=== PATIENT | male | born 1965 | race Hispanic/Latino ===

== ENCOUNTER 2020-08-26 12:03 | Inpatient (IN) | payer OTHER, SELFPAY ==
--- NOTE | 2020-08-26 12:26 | Event Note ---
ED Screening Note Date of service: 08/26/20 Time: 12:21 ED Screening Note: 55 y/o male male presents to the emergency room for worsening cough and shortness of breath. Patient reports a past medical history of hypertension has been off his medications for approximately 6 months. Patient states with minimal exertion he gets short of breath. He he is currently on no oxygen at home. This initial assessment/diagnostic orders/clinical plan/treatment(s) is/are subject to change based on patients health status, clinical progression and re- assessment by fellow clinical providers in the ED. Further treatment and workup at subsequent clinical providers discretion. Patient/guardian urged not to elope from the ED as their condition may be serious if not clinically assessed and managed. Initial orders include: CBC CMP chest x-ray EKG oxygen.
--- NOTE | 2020-08-26 12:56 | XRay Report ---
XR chest routine 2V INDICATION / CLINICAL INFORMATION: SOB. COMPARISON: None available. FINDINGS: SUPPORT DEVICES: None. HEART /PULMONARY VASCULATURE: No significant abnormality. LUNGS / PLEURA: Patchy right hilar and medial right basilar airspace opacities. Mild opacities are al so present in the left lung base. No sizable pleural effusion or pneumothorax. ADDITIONAL FINDINGS: No significant additional findings. IMPRESSION: Patchy bilateral pulmonary opacities, greatest within the right perihilar and medial basilar regions. Findings are suspicious for pneumonia. Signer Name: Jose Crum MD Signed: 08/26/2020 12:51 PM Workstation Name: [id number]
[2020-08-26 13:21] LABS: Basophils # (Auto) 0.1 K/mm3 (0.0-0.1); Basophils % (Auto) 0.8 % (0.0-1.8); Eosinophils % (Auto) 0.5 % (0.0-4.3); Hematocrit 36.2 % (35.5-45.6); Hemoglobin 12.9 gm/dl (11.8-15.2); Lymphocytes # (Auto) 1.7 K/mm3 (1.2-5.4); Lymphocytes % (Auto) 16.9 % (13.4-35.0); Mean Corpuscular HGB Conc 36 % (32-34); Mean Corpuscular Volume 92 fl (84-94); Monocytes # (Auto) 0.9 K/mm3 (0.0-0.8); Monocytes % (Auto) 8.6 % (0.0-7.3); Platelet Count 298 K/mm3 (140-440); Red Blood Count 3.92 M/mm3 (3.65-5.03); Red Cell Distribution Width 14.1 % (13.2-15.2)
[2020-08-26 13:39] LABS: Alanine Aminotransferase 44 units/L (7-56); Albumin 3.3 g/dL (3.9-5); BUN/Creatinine Ratio 27; Blood Urea Nitrogen 30 mg/dL (9-20); Calcium 8.4 mg/dL (8.4-10.2); Hemolysis Index 5
[2020-08-26] MEDS ORDERED: AZITHROMYCIN/NS 500 MG/250 ML 500 MG/250 ML BAG IV ONE (17:55)
[2020-08-26] MEDS ORDERED: SODIUM CHLORIDE 0.9% 500 ML 500 ML IV ONE (17:55)
[2020-08-26] MEDS ORDERED: cefTRIAXone/NS 2 GM/100 ML 2 GM/100 ML BAG IV ONE (17:55)
[2020-08-26] MEDS ORDERED: dexAMETHasone 20 MG/5 ML VIAL IV ONE (17:58)
[2020-08-26] MEDS ORDERED: ACETAMINOPHEN 325 MG TAB PO PRN (18:30)
[2020-08-26] MEDS ORDERED: ONDANSETRON 4 MG/2 ML INJ IV PRN (18:30)
[2020-08-26] MEDS ORDERED: ALBUTEROL 2.5 MG/3 ML NEBU IH PRN (18:30)
--- NOTE | 2020-08-26 18:33 | History and Physical Report ---
History of Present Illness Chief complaint: I cannot breathe History of present illness: 55 YO Male with Obesity, HTN, Medication Noncompliance presents to ED for evaluation. Patient reports "I cannot breathe. Patient states that he has experienced shortness of breath over the past 3 days with progressively worsenin g symptoms over the same timeframe. Patient acknowledges malaise, fatigue, decreased exercise tolerance, as well as dry cough. Patient transported to [facility] via private vehicle for further care and evaluation of the aforementioned symptoms. The patient was seen and evaluated in the emergency department. All lab and imaging studies reviewed. Patient found to have a pulse oximetry of 88% on room air with exertion. Patient is unable to ambulate more than 10 feet without stopping due to shortness of breath. Patient is using accessory muscles to breathe. Patient symptoms consistent with acute hypoxemic respiratory failure. Patient underwent chest x-ray and was found to have bilateral pneumo zoe. Patient admitted to medical floor and initiated on pneumonia protocol as well as coronavirus protocol. Patient denies fever, chills, chest pain, palpitation, skin rash, recent ill contacts, or known exposure to COVID-19. No prior admission for review. No medication listed at time of admission for reconciliation. Past History Past Medical History: hypertension, other (See HPI) Past Surgical History: No surgical history, Other (Reviewed) Social history: single. denies: smoking, alcohol abuse, prescription drug abuse Family history: hypertension Medications and Allergies Allergies Allergy/AdvReac Type Severity Reaction Status Date / Time No Known Allergies Allergy Unverified 09/27/14 06:19 Active Meds: Active Medications Acetaminophen (Acetaminophen 325 Mg Tab) 650 mg PO Q4H PRN PRN Reason: Pain MILD(1-3)/Fever >100.5/MARIA Albuterol (Albuterol 2.5 Mg/3 Ml Nebu) 2.5 mg IH Q4HRT PRN PRN Reason: Shortness Of Breath Famotidine (Famotidine 20 Mg Tab) 20 mg PO BID RISHI Azithromycin (Zithromax/Ns) 500 mg in 250 mls @ 250 mls/hr IV ONCE ONE; Protocol Stop: 08/26/20 18:54 Ceftriaxone Sodium (Rocephin/Ns 2 Gm/100 Ml) 2 gm in 100 mls @ 200 mls/hr IV Q24H RISHI; Protocol Azithromycin (Zithromax/Ns) 500 mg in 250 mls @ 250 mls/hr IV Q24H RISHI; Protocol Ondansetron HCl (Ondansetron 4 Mg/2 Ml Inj) 4 mg IV Q8H PRN PRN Reason: Nausea And Vomiting Sodium Chloride (Sodium Chloride 0.9% 10 Ml Flush Syringe) 10 ml IV BID RISHI Sodium Chloride (Sodium Chloride 0.9% 10 Ml Flush Syringe) 10 ml IV PRN PRN PRN Reason: LINE FLUSH Review of Systems Constitutional: fatigue, weakness, malaise, no fever, no chills, no sweats Ears, nose, mouth and throat: no ear pain, no ear discharge, no tinnitis, no decreased hearing, no nasal congestion, no nasal discharge Cardiovascular: no chest pain, no orthopnea, no rapid/irregular heart beat, no edema, no syncope Respiratory: cough, shortness of breath, no wheezing, no pleurisy, no pain on inspiration Gastrointestinal: no abdominal pain, no nausea, no vomiting, no diarrhea, no constipation Genitourinary Male: no hematuria, no flank pain, no discharge, no urinary frequency Rectal: no pain, no incontinence, no bleeding Musculoskeletal: no neck stiffness, no neck pain, no shooting arm pain, no arm numbness/tingling, no shooting leg pain Integumentary: no rash, no pruritis, no redness, no sores Neurological: no head injury, no transient paralysis, no paralysis, no tremors, no ataxia Psychiatric: no anxiety, no change in sleep habits, no insomnia, no hypersomnia, no change in appetite, no change in libido, no suicidal ideation Endocrine: no cold intolerance, no polyphagia, no excessive thirst, no polydipsia Hematologic/Lymphatic: no easy bruising, no easy bleeding Allergic/Immunologic: no urticaria, no allergic rhinitis Exam - Constitutional Vitals: Temp Pulse Resp BP Pulse Ox 98.6 F 86 26 H 199/121 94 08/26/20 12:17 08/26/20 12:17 08/26/20 12:17 08/26/20 12:17 08/26/20 12:17 General appearance: Present: mild distress, obese - EENT Eyes: Present: PERRL ENT: hearing intact, clear oral mucosa - Neck Neck: Present: supple, normal ROM - Respiratory Respiratory effort: labored, accessory muscle use, stridor Respiratory: bilateral: diminished, rhonchi - Cardiovascular Heart Sounds: Present: S1 & S2. Absent: rub, click - Extremities Extremities: pulses symmetrical, No edema Peripheral Pulses: within normal limits - Abdominal General gastrointestinal: Present: soft, non-tender, non-distended, normal bowel sounds Male genitourinary: Present: normal - Integumentary Integumentary: Present: clear, warm, dry - Musculoskeletal Musculoskeletal: gait normal, strength equal bilaterally - Psychiatric Psychiatric: appropriate mood/affect, intact judgment & insight - Neurologic Neurologic: CNII-XII intact, moves all extremities Results - Labs CBC & Chem 7: 08/26/20 13:02 08/26/20 13:02 Labs: Abnormal lab results 08/26/20 08/26/20 Range/Units 13:02 13:02 MCH 33 H (28-32) pg MCHC 36 H (32-34) % [place] % (Auto) 8.6 H (0.0-7.3) % [place] # (Auto) 0.9 H (0.0-0.8) K/mm3 Seg Neutrophils % 73.2 H (40.0-70.0) % BUN 30 H (9-20) mg/dL Albumin 3.3 L (3.9-5) g/dL Assessment and Plan - Patient Problems (1) Acute hypoxemic respiratory failure Current Visit: Yes Status: Acute Plan to address problem: Chest x-ray, supplemental oxygen, pulse oximetry, nebulizer therapy, pulmonary toilet. (2) Obesity hypoventilation syndrome Current Visit: Yes Status: Acute Plan to address problem: Balanced diet, increase physical activity at discharge, outpatient pulmonary follow-up for sleep study. (3) Bilateral pneumonia Current Visit: Yes Status: Acute Plan to address problem: Pneumonia protocol: Chest x-ray, CBC, CMP, supplemental oxygen, nebulizer therapy, IV antibiotic therapy, blood culture. (4) Suspected COVID-19 virus infection Current Visit: Yes Status: Acute Plan to address problem: Coronavirus protocol: Contact precautions, isolation precautions, supplemental oxygen, pulse oximetry, nebulizer therapy, IV antibiotic therapy, IV steroid therapy, vitamin C therapy, vitamin D therapy, zinc therapy, IV steroid therapy (5) Hypertensive urgency Current Visit: Yes Status: Acute Plan to address problem: Monitor blood pressure every shift, continue medical management. (6) DVT prophylaxis Current Visit: Yes Status: Acute Plan to address problem: SCD to bilateral lower extremities while in bed, continue therapeutic anticoagulation
--- NOTE | 2020-08-26 18:40 | Emergency Department Report ---
ED Shortness of Breath HPI - General Chief Complaint: Dyspnea/Respdistress Stated Complaint: COUGH Time Seen by Provider: 08/26/20 17:43 Source: patient Mode of arrival: Ambulatory Limitations: No Limitations - History of Present Illness Initial Comments: Patient is a 55-year-old male past medical history of smoking and hypertension who is been noncompliant with his antihypertensive medications for the past 6 months is presenting with 2 weeks of shortness of breath. Patient states started out with a mild cough but is progressed to cough with shortness of breath especially with exertion. Patient states when going from his bedroom to his kitchen he is very short of breath and has to stop. Denies chest pain nausea vomiting diarrhea. Cough is nonproductive. Patient said body aches and some subjective fevers and chills. No objective fever was taken. Patient has not been tested for COVID-19 or has he been vaccinated. - Related Data Allergies Allergy/AdvReac Type Severity Reaction Status Date / Time No Known Allergies Allergy Unverified 09/27/14 06:19 ED Review of Systems ROS: Stated complaint: COUGH Other details as noted in HPI Comment: All other systems reviewed and negative ED Past Medical Hx - Past Medical History Previous Medical History?: No - Surgical History Past Surgical History?: Yes Additional Surgical History: plate in L ankle - Social History Smoking Status: Current Every Day Smoker Substance Use Type: None ED Physical Exam - General Limitations: No Limitations General appearance: alert, in no apparent distress - Head Head exam: Present: atraumatic, normocephalic - Eye Eye exam: Present: normal appearance - ENT ENT exam: Present: mucous membranes moist - Neck Neck exam: Present: normal inspection - Respiratory Respiratory exam: Present: respiratory distress, wheezes (Mild with exertion). Absent: normal lung sounds bilaterally, rales, rhonchi - Cardiovascular Cardiovascular Exam: Present: regular rate, normal rhythm, normal heart sounds. Absent: systolic murmur, diastolic murmur, rubs, gallop - GI/Abdominal GI/Abdominal exam: Present: soft, normal bowel sounds. Absent: distended, tenderness, guarding, rebound - Rectal Rectal exam: Present: deferred - Extremities Exam Extremities exam: Present: normal inspection - Back Exam Back exam: Present: normal inspection - Neurological Exam Neurological exam: Present: alert, oriented X3 - Psychiatric Psychiatric exam: Present: normal affect, normal mood - Skin Skin exam: Present: warm, dry, intact, normal color. Absent: rash ED Course Vital Signs 08/26/20 08/26/20 12:10 12:17 Temperature 98.6 F Pulse Rate 86 Respiratory 26 H Rate Blood Pressure 199/121 O2 Sat by Pulse 89 94 Oximetry ED Medical Decision Making - Lab Data Result diagrams: 08/26/20 13:02 08/26/20 13:02 Lab Results 08/26/20 08/26/20 Range/Units 13:02 13:02 WBC 10.2 (4.5-11.0) K/mm3 RBC 3.92 (3.65-5.03) M/mm3 Hgb 12.9 (11.8-15.2) gm/dl Hct 36.2 (35.5-45.6) % MCV 92 (84-94) fl MCH 33 H (28-32) pg MCHC 36 H (32-34) % RDW 14.1 (13.2-15.2) % Plt Count 298 (140-440) K/mm3 Lymph % (Auto) 16.9 (13.4-35.0) % [place] % (Auto) 8.6 H (0.0-7.3) % Eos % (Auto) 0.5 (0.0-4.3) % Baso % (Auto) 0.8 (0.0-1.8) % Lymph # (Auto) 1.7 (1.2-5.4) K/mm3 [place] # (Auto) 0.9 H (0.0-0.8) K/mm3 Eos # (Auto) 0.0 (0.0-0.4) K/mm3 Baso # (Auto) 0.1 (0.0-0.1) K/mm3 Seg Neutrophils % 73.2 H (40.0-70.0) % Seg Neutrophils # 7.5 (1.8-7.7) K/mm3 Sodium 140 (137-145) mmol/L Potassium 4.0 (3.6-5.0) mmol/L Chloride 106.5 (98-107) mmol/L Carbon Dioxide 26 (22-30) mmol/L Anion Gap 12 mmol/L BUN 30 H (9-20) mg/dL Creatinine 1.1 (0.8-1.3) mg/dL Estimated GFR > 60 ml/min BUN/Creatinine Ratio 27 % Glucose 91 (75-100) mg/dL Calcium 8.4 (8.4-10.2) mg/dL Total Bilirubin 0.60 (0.1-1.2) mg/dL AST 38 (5-40) units/L ALT 44 (7-56) units/L Alkaline Phosphatase 114 (35-129) units/L Total Protein 6.9 (6.3-8.2) g/dL Albumin 3.3 L (3.9-5) g/dL Albumin/Globulin Ratio 0.9 % - Radiology Data [id number] : 1965 Acct:[id number] Age/Sex: 55 / M ADM Date: 08/26/20 Loc: ED Attending Dr: Ordering Physician: RAFAEL IRWIN MD Date of Service: 08/26/20 Procedure(s): XR chest routine 2V Accession Number(s): [id number] cc: ED MD DC Fluoro Time In Minutes: XR chest routine 2V INDICATION / CLINICAL INFORMATION: SOB. COMPARISON: None available. FINDINGS: SUPPORT DEVICES: None. HEART /PULMONARY VASCULATURE: No significant abnormality. LUNGS / PLEURA: Patchy right hilar and medial right basilar airspace opacities. Mild opacities are also present in the left lung base. No sizable pleural effusion or pneumothorax. ADDITIONAL FINDINGS: No significant additional findings. IMPRESSION: Patchy bilateral pulmonary opacities, greatest within the right perihilar and medial basilar regions. Findings are suspicious for pneumonia. Signer Name: Raulito Diallo MD Signed: 08/26/2020 12:51 PM Workstation Name: [id number] Transcribed By: DECLAN Dictated By: RAULITO DIALLO MD Electronically Authenticated By: RAULITO DIALLO MD Signed Date/Time: 08/26/20 1251 - Medical Decision Making On arrival patient was hypoxic after entering the building walking from his car. He was placed on oxygen. Unfortunately there is a prolonged wait time for him to receive the room. On my arrival to the room the patient did have some shortness of breath with minor exertion in the room. Placed on 2 L of oxygen. Blood cultures sent patient given Rocephin and azithromycin empirically because of the bilateral patchy infiltrates. Covid 19 testing will be done in the morning. Inflammatory markers have been sent. Patient given labetalol for his elevated blood pressure. Given a dose of Decadron to cover for inflammatory response. Patient admitted to the hospitalist service. Critical Care Time: Yes (30) Critical care attestation.: If time is entered above; I have spent that time in minutes in the direct care of this critically ill patient, excluding procedure time. ED Disposition Clinical Impression: Bilateral pneumonia, Hypoxia, Suspected COVID-19 virus infection, Hypertensive urgency Disposition: 09 OP ADMIT IP TO THIS HOSP Is pt being admited?: Yes Does the pt Need Aspirin: No Condition: Stable Instructions: Bacterial Pneumonia (ED) Referrals: PRIMARY CARE, [Primary Care Provider] - 3-5 Days Time of Disposition: 18:41
[2020-08-26] MEDS ORDERED: cefTRIAXone/NS 2 GM/100 ML 2 GM/100 ML BAG IV SCH (19:00)
[2020-08-26] MEDS ORDERED: AZITHROMYCIN/NS 500 MG/250 ML 500 MG/250 ML BAG IV SCH (19:00)
[2020-08-26 19:09] LABS: C-Reactive Protein 1.5 mg/dL (0.00-1.30)
[2020-08-26] MEDS: hydrALAZINE 20 MG/1 ML INJ IV PRN (21:35)
[2020-08-26] MEDS ORDERED: HYDROmorphone 1 MG/1 ML INJ IV ONE (21:36)
[2020-08-26] MEDS: ASCORBIC ACID 500 MG TAB PO SCH (22:58)
[2020-08-26] MEDS: FAMOTIDINE 20 MG TAB PO SCH (22:58)
[2020-08-26] MEDS: methylPREDNISolone Sod Succinate 40 MG/1 ML INJ IV SCH (22:58)
[2020-08-26] MEDS: ZINC SULFATE 220 MG CAP PO SCH (22:58)
[2020-08-26] MEDS: HEPARIN 5,000 UNIT/1 ML VIAL SUB-Q SCH (22:59)
[2020-08-27] MEDS: methylPREDNISolone Sod Succinate 40 MG/1 ML INJ IV SCH ×3 (05:48→21:51)
[2020-08-27] MEDS: hydrALAZINE 20 MG/1 ML INJ IV PRN (06:12)
[2020-08-27 07:55] LABS: Hematocrit 41.7 % (35.5-45.6); Hemoglobin 14.3 gm/dl (11.8-15.2); Mean Corpuscular HGB Conc 34 % (32-34); Mean Corpuscular Volume 94 fl (84-94); Platelet Count 321 K/mm3 (140-440); Red Blood Count 4.42 M/mm3 (3.65-5.03); Red Cell Distribution Width 14.3 % (13.2-15.2)
[2020-08-27 08:10] LABS: Alanine Aminotransferase 46 units/L (7-56); Albumin 3.2 g/dL (3.9-5); BUN/Creatinine Ratio 26; Blood Urea Nitrogen 21 mg/dL (9-20); Calcium 8.1 mg/dL (8.4-10.2); Hemolysis Index 38
[2020-08-27 08:45] LABS: RBC Morphology Normal; Total Cells Counted 100
[2020-08-27 08:46] LABS: Platelet Estimate Consistent w Auto
--- NOTE | 2020-08-27 09:26 | Progress Note ---
Assessment and Plan Assessment and plan: #Acute pulse respiratory failure Secondary to pneumonia Continue oxygen supplementation COVID-19 test pending #COVID-19 pneumonia suspected COVID-19 test ordered Continue methylprednisolone Antibiotics Continue oxygen supplementation #Hypertensive urgency Continue blood pressure medications as ordered Monitor blood pressure closely #Obesity hypoventilation syndrome Pulmonology follow-up for sleep study #DVT prophylaxis-Heparin Full code Disposition-likely home when stable History Interval history: 55 YO Male with Obesity, HTN, Medication Noncompliance presents to ED for evaluation. Patient reports "I cannot breathe. Patient states that he has experienced shortness of breath over the past 3 days with progressively worsening symptoms over the same timeframe. Patient acknowledges malaise, fatigue, decreased exercise tolerance, as well as dry cough. Patient transported to [facility] via private vehicle for further care and evaluation of the aforementioned symptoms. The patient was seen and evaluated in the emergency department. All lab and imaging studies reviewed. Patient found to have a pulse oximetry of 88% on room air with exertion. Patient is unable to ambulate more than 10 feet without stopping due to shortness of breath. Patient is using accessory muscles to breathe. Patient symptoms consistent with acute hypoxemic respiratory failure. Patient underwent chest x-ray and was found to have bilateral pneumonia. Patient admitted to medical floor and initiated on pneumonia protocol as well as coronavirus protocol. Patient denies fever, chills, chest pain, palpitation, skin rash, recent ill contacts, or known exposure to COVID-19. No prior admission for review. No medication listed at time of admission for reconciliation. Hospital course 08/27. Patient is on methylprednisolone 40 every 8 and antibiotics for pneumonia . COVID-19 test pending. He notes occasional cough. Denies any fever. proBNP ordered. ID evaluation Hospitalist Physical - Physical exam Narrative exam: VITAL SIGNS: Reviewed. GENERAL: Awake HEAD: No signs of head trauma. EYES: Pupils are equal. Extraocular motions intact. MOUTH: Oropharynx is normal. NECK: No adenopathy, no JVD. CHEST: Chest with diminished breath sounds bilaterally. No wheezes, rales, or rhonchi. CARDIAC: normal S1 and S2, without murmurs, gallops, or rubs. ABDOMEN: Soft, non tender and non distended. No rebound or guarding, and no masses palpated. Bowel Sounds normal. MUSCULOSKELETAL: No edema NEUROLOGIC EXAM: Alert and oriented x3. No focal neurologic deficits SKIN: No obvious lesions - Constitutional Vitals: Temp Pulse Resp BP Pulse Ox 98.1 F 90 18 168/85 100 08/27/20 04:19 08/27/20 06:12 08/27/20 08:50 08/27/20 06:12 08/27/20 04:39 Results - Labs CBC & Chem 7: 08/28/20 05:24 08/28/20 05:24 Labs: Laboratory Last Values WBC 8.4 K/mm3 (4.5-11.0) 08/27/20 07:03 RBC 4.42 M/mm3 (3.65-5.03) 08/27/20 07:03 Hgb 14.3 gm/dl (11.8-15.2) 08/27/20 07:03 Hct 41.7 % (35.5-45.6) 08/27/20 07:03 MCV 94 fl (84-94) 08/27/20 07:03 MCH 32 pg (28-32) 08/27/20 07:03 MCHC 34 % (32-34) 08/27/20 07:03 RDW 14.3 % (13.2-15.2) 08/27/20 07:03 Plt Count 321 K/mm3 (140-440) 08/27/20 07:03 Lymph % (Auto) 16.9 % (13.4-35.0) 08/26/20 13:02 Branch % (Auto) 8.6 % (0.0-7.3) H 08/26/20 13:02 Eos % (Auto) 0.5 % (0.0-4.3) 08/26/20 13:02 Baso % (Auto) 0.8 % (0.0-1.8) 08/26/20 13:02 Lymph # (Auto) 1.7 K/mm3 (1.2-5.4) 08/26/20 13:02 Branch # (Auto) 0.9 K/mm3 (0.0-0.8) H 08/26/20 13:02 Eos # (Auto) 0.0 K/mm3 (0.0-0.4) 08/26/20 13:02 Baso # (Auto) 0.1 K/mm3 (0.0-0.1) 08/26/20 13:02 Add Manual Diff Complete 08/27/20 07:03 Total Counted 100 08/27/20 07:03 Seg Neutrophils % [employer] Equipment Wirer 08/27/20 07:03 Seg Neuts % (Manual) 98.0 % (40.0-70.0) H 08/27/20 07:03 Lymphocytes % (Manual) 2.0 % (13.4-35.0) L 08/27/20 07:03 Nucleated RBC % Not Reportable 08/27/20 07:03 Seg Neutrophils # 7.5 K/mm3 (1.8-7.7) 08/26/20 13:02 Seg Neutrophils # Man 8.2 K/mm3 (1.8-7.7) H 08/27/20 07:03 Band Neutrophils # 0.0 K/mm3 08/27/20 07:03 Lymphocytes # (Manual) 0.2 K/mm3 (1.2-5.4) L 08/27/20 07:03 Abs React Lymphs (Man) 0.0 K/mm3 08/27/20 07:03 Monocytes # (Manual) 0.0 K/mm3 (0.0-0.8) 08/27/20 07:03 Eosinophils # (Manual) 0.0 K/mm3 (0.0-0.4) 08/27/20 07:03 Basophils # (Manual) 0.0 K/mm3 (0.0-0.1) 08/27/20 07:03 Metamyelocytes # 0.0 K/mm3 08/27/20 07:03 Myelocytes # 0.0 K/mm3 08/27/20 07:03 Promyelocytes # 0.0 K/mm3 08/27/20 07:03 Blast Cells # 0.0 K/mm3 08/27/20 07:03 WBC Morphology Not Reportable 08/27/20 07:03 Hypersegmented Neuts Not Reportable 08/27/20 07:03 Hyposegmented Neuts Not Reportable 08/27/20 07:03 Hypogranular Neuts Not Reportable 08/27/20 07:03 Smudge Cells Not Reportable 08/27/20 07:03 Toxic Granulation Not Reportable 08/27/20 07:03 Toxic Vacuolation Not Reportable 08/27/20 07:03 Dohle Bodies Not Reportable 08/27/20 07:03 Pelger-Huet Anomaly Not Reportable 08/27/20 07:03 Jesse Rods Not Reportable 08/27/20 07:03 Platelet Estimate Consistent w auto 08/27/20 07:03 Clumped Platelets Not Reportable 08/27/20 07:03 Plt Clumps, EDTA Not Reportable 08/27/20 07:03 Large Platelets Not Reportable 08/27/20 07:03 Giant Platelets Not Reportable 08/27/20 07:03 Platelet Satelliting Not Reportable 08/27/20 07:03 Plt Morphology Comment Not Reportable 08/27/20 07:03 RBC Morphology Normal 08/27/20 07:03 Dimorphic RBCs Not Reportable 08/27/20 07:03 Polychromasia Not Reportable 08/27/20 07:03 Hypochromasia Not Reportable 08/27/20 07:03 Poikilocytosis Not Reportable 08/27/20 07:03 Anisocytosis Not Reportable 08/27/20 07:03 Microcytosis Not Reportable 08/27/20 07:03 Macrocytosis Not Reportable 08/27/20 07:03 Spherocytes Not Reportable 08/27/20 07:03 Pappenheimer Bodies Not Reportable 08/27/20 07:03 Sickle Cells Not Reportable 08/27/20 07:03 Target Cells Not Reportable 08/27/20 07:03 Tear Drop Cells Not Reportable 08/27/20 07:03 Ovalocytes Not Reportable 08/27/20 07:03 Helmet Cells Not Reportable 08/27/20 07:03 [place] Bodies Not Reportable 08/27/20 07:03 [place] Rings Not Reportable 08/27/20 07:03 [place] Cells Not Reportable 08/27/20 07:03 Bite Cells Not Reportable 08/27/20 07:03 Crenated Cell Not Reportable 08/27/20 07:03 Elliptocytes Not Reportable 08/27/20 07:03 Acanthocytes (Spur) Not Reportable 08/27/20 07:03 Rouleaux Not Reportable 08/27/20 07:03 Hemoglobin C Crystals Not Reportable 08/27/20 07:03 Schistocytes Not Reportable 08/27/20 07:03 Malaria parasites Not Reportable 08/27/20 07:03 Tomi Bodies Not Reportable 08/27/20 07:03 Hem Pathologist Commnt No 08/27/20 07:03 D-Dimer 493.28 ng/mlDDU (0-234) H 08/26/20 18:21 Sodium 137 mmol/L (137-145) 08/27/20 07:03 Potassium 4.3 mmol/L (3.6-5.0) 08/27/20 07:03 Chloride 103.3 mmol/L (98-107) 08/27/20 07:03 Carbon Dioxide 23 mmol/L (22-30) 08/27/20 07:03 Anion Gap 15 mmol/L 08/27/20 07:03 BUN 21 mg/dL (9-20) H 08/27/20 07:03 Creatinine 0.8 mg/dL (0.8-1.3) 08/27/20 07:03 Estimated GFR > 60 ml/min 08/27/20 07:03 BUN/Creatinine Ratio 26 % 08/27/20 07:03 Glucose 148 mg/dL (75-100) H 08/27/20 07:03 Lactic Acid 1.30 mmol/L (0.7-2.0) 08/27/20 00:44 Calcium 8.1 mg/dL (8.4-10.2) L 08/27/20 07:03 Ferritin 112.6 ng/mL (30.0-300.0) 08/26/20 18: Total Bilirubin 0.60 mg/dL (0.1-1.2) 08/27/20 07:03 AST 35 units/L (5-40) 08/27/20 07:03 ALT 46 units/L (7-56) 08/27/20 07:03 Alkaline Phosphatase 108 units/L (35-129) 08/27/20 07:03 Lactate Dehydrogenase 282 units/L (91-180) H 08/26/20 18:21 C-Reactive Protein 1.50 mg/dL (0.00-1.30) H 08/26/20 18: Total Protein 7.3 g/dL (6.3-8.2) 08/27/20 07:03 Albumin 3.2 g/dL (3.9-5) L 08/27/20 07:03 Albumin/Globulin Ratio 0.8 % 08/27/20 07:03 Microbiology: Microbiology 08/26/20 18:21 Peripheral/Venous Blood Culture - Preliminary Culture in Progress 08/26/20 18:30 Peripheral/Venous Blood Culture - Preliminary Culture in Progress Merino/IV: Voiding Method Urinal Active Medications - Current Medications Current Medications: Generic Name Dose Route Start Last Admin Trade Name Freq PRN Reason Stop Dose Admin Acetaminophen 650 mg 08/26/20 18:30 Acetaminophen 325 Mg Tab PO Q4H PRN Pain MILD(1-3)/Fever >100.5/MARIA Albuterol 2.5 mg 08/26/20 18:30 Albuterol 2.5 Mg/3 Ml Nebu IH Q4HRT PRN Shortness Of Breath Amlodipine Besylate 10 mg 08/27/20 10:00 Amlodipine 10 Mg Tab PO QDAY RISHI Ascorbic Acid 500 mg 08/26/20 22:00 08/26/20 22:58 Ascorbic Acid 500 Mg Tab PO 500 mg BID RISHI Administration Cholecalciferol 1,000 unit 08/27/20 10:00 Cholecalciferol (Vit D3) 1000 Unit (25 Mcg) Tab PO QDAY RISHI Famotidine 20 mg 08/26/20 22:00 08/26/20 22:58 Famotidine 20 Mg Tab PO 20 mg BID RISHI Administration Heparin Sodium (Porcine) 5,000 unit 08/26/20 22:00 08/26/20 22:59 Heparin 5,000 Unit/1 Ml Vial SUB-Q 5,000 unit Q12HR RISHI Administration Hydralazine HCl 10 mg 08/26/20 19:11 08/27/20 06:12 Hydralazine 20 Mg/1 Ml Inj IV 10 mg Q8HR PRN Administration Hypertension Ceftriaxone Sodium 2 gm in 100 mls @ 200 mls/hr 08/27/20 10:00 Rocephin/Ns 2 Gm/100 Ml IV Q24HR [facility] Protocol Azithromycin 500 mg in 250 mls @ 250 mls/hr 08/27/20 10:00 Zithromax/Ns IV 08/30/20 10:59 Q24HR [facility] Protocol Methylprednisolone Sodium Succinate 40 mg 08/26/20 22:00 08/27/20 05:48 Methylprednisolone Sod Succinate 40 Mg/1 Ml Inj IV 40 mg Q8H RISHI Administration Ondansetron HCl 4 mg 08/26/20 18:30 Ondansetron 4 Mg/2 Ml Inj IV Q8H PRN Nausea And Vomiting Sodium Chloride 10 ml 08/26/20 22:00 08/26/20 22:58 Sodium Chloride 0.9% 10 Ml Flush Syringe IV 10 ml BID RISHI Administration Sodium Chloride 10 ml 08/26/20 18:30 Sodium Chloride 0.9% 10 Ml Flush Syringe IV PRN PRN LINE FLUSH Zinc Sulfate 220 mg 08/26/20 22:00 08/26/20 22:58 Zinc Sulfate 220 Mg Cap PO 220 mg BID RISHI Administration
[2020-08-27] MEDS ORDERED: FUROSEMIDE 40 MG/4 ML INJ IV NR ×2 (09:40→18:49)
[2020-08-27] MEDS ORDERED: dexAMETHasone 4 MG/ML VIAL IV SCH (10:00)
[2020-08-27] MEDS ORDERED: AZITHROMYCIN/NS 500 MG/250 ML 500 MG/250 ML BAG IV SCH (10:00)
[2020-08-27] MEDS: HEPARIN 5,000 UNIT/1 ML VIAL SUB-Q SCH ×2 (10:32→21:51)
[2020-08-27] MEDS: ASCORBIC ACID 500 MG TAB PO SCH ×2 (10:32→21:51)
[2020-08-27] MEDS: cefTRIAXone/NS 2 GM/100 ML 2 GM/100 ML BAG IV SCH (10:32)
[2020-08-27] MEDS: FAMOTIDINE 20 MG TAB PO SCH ×2 (10:32→21:51)
[2020-08-27] MEDS: LOSARTAN 50 MG TAB PO SCH (10:32)
[2020-08-27] MEDS: ZINC SULFATE 220 MG CAP PO SCH ×2 (10:32→21:51)
[2020-08-27] MEDS: CHOLECALCIFEROL (VIT D3) 1000 UNIT (25 mcg) TAB PO SCH (10:32)
[2020-08-27] MEDS: amLODIPine 10 MG TAB PO SCH (10:33)
[2020-08-27] MEDS ORDERED: FLU VACC QUAD 2020-2021 (6 months +)/PF 60 0.5 ML SYRINGE IM ONE (12:00)
[2020-08-28] MEDS: methylPREDNISolone Sod Succinate 40 MG/1 ML INJ IV SCH ×3 (05:42→21:36)
[2020-08-28 06:23] LABS: Hematocrit 43.4 % (35.5-45.6); Hemoglobin 14.7 gm/dl (11.8-15.2); Mean Corpuscular HGB Conc 34 % (32-34); Mean Corpuscular Volume 95 fl (84-94); Platelet Count 374 K/mm3 (140-440); Red Blood Count 4.58 M/mm3 (3.65-5.03); Red Cell Distribution Width 14.7 % (13.2-15.2)
[2020-08-28 06:45] LABS: Alanine Aminotransferase 37 units/L (7-56); Albumin 3.6 g/dL (3.9-5); BUN/Creatinine Ratio 25; Blood Urea Nitrogen 25 mg/dL (9-20); Calcium 8.6 mg/dL (8.4-10.2); Hemolysis Index 7
[2020-08-28 08:12] LABS: Platelet Estimate Consistent w Auto; RBC Morphology Normal; Total Cells Counted 100
[2020-08-28] MEDS: FUROSEMIDE 40 MG/4 ML INJ IV SCH ×2 (10:05→18:27)
[2020-08-28] MEDS: HEPARIN 5,000 UNIT/1 ML VIAL SUB-Q SCH ×2 (10:05→21:35)
[2020-08-28] MEDS: cefTRIAXone/NS 2 GM/100 ML 2 GM/100 ML BAG IV SCH (10:05)
[2020-08-28] MEDS: FAMOTIDINE 20 MG TAB PO SCH ×2 (10:06→21:36)
[2020-08-28] MEDS: LOSARTAN 50 MG TAB PO SCH (10:06)
[2020-08-28] MEDS: AZITHROMYCIN 250 MG TAB PO SCH (10:06)
[2020-08-28] MEDS: ASCORBIC ACID 500 MG TAB PO SCH ×2 (10:06→21:36)
[2020-08-28] MEDS: ZINC SULFATE 220 MG CAP PO SCH ×2 (10:06→21:36)
[2020-08-28] MEDS: CHOLECALCIFEROL (VIT D3) 1000 UNIT (25 mcg) TAB PO SCH (10:07)
[2020-08-28] MEDS: amLODIPine 10 MG TAB PO SCH (10:07)
--- NOTE | 2020-08-28 10:20 | Progress Note ---
Assessment and Plan Assessment and plan: #Acute pulse respiratory failure Secondary to pneumonia Continue oxygen supplementation COVID-19 test negative #COVID-19 ruled out #Hypertensive urgency Switch amlodipine to nifedipine and adjust dose Continue losartan #Elevated proBNP Likely as a result of possible CHF Started on Lasix 40 mg twice daily Repeat chest x-ray tomorrow a.m. #Obesity hypoventilation syndrome Pulmonology follow-up for sleep study #DVT prophylaxis-Heparin Full code Disposition-likely home when stable History Interval history: 55 YO Male with Obesity, HTN, Medication Noncompliance presents to ED for evaluation. Patient reports "I cannot breathe. Patient states that he has experienced shortness of breath over the past 3 days with progressively worsening symptoms over the same timeframe. Patient acknowledges malaise, fatigue, decreased exercise tolerance, as well as dry cough. Patient transported to [facility] via private vehicle for further care and evaluation of the aforementioned symptoms. The patient was seen and evaluated in the emergency department. All lab and imaging studies reviewed. Patient found to have a pulse oximetry of 88% on room air with exertion. Patient is unable to ambulate more than 10 feet without stopping due to shortness of breath. Patient is using accessory muscles to breathe. Patient symptoms consistent with acute hypoxemic respiratory failure. Patient underwent chest x-ray and was found to have bilateral pneumonia. Patient admitted to medical floor and initiated on pneumonia protocol as well as coronavirus protocol. Patient denies fever, chills, chest pain, palpitation, skin rash, recent ill contacts, or known exposure to COVID-19. No prior admission for review. No medication listed at time of admission for reconciliation. Hospital course 08/27. Patient is on methylprednisolone 40 every 8 and antibiotics for pneu monia. COVID-19 test pending. He notes occasional cough. Denies any fever. proBNP ordered. ID evaluation 08/28. COVID-19 test is negative. Taper steroids. His proBNP is elevated to more than 6000. Patient started on Lasix 40 mg twice daily. Echocardiogram performed but results still pending. Telemetry-sinus rhythm in the 80s. Hospitalist Physical - Physical exam Narrative exam: VITAL SIGNS: Reviewed. GENERAL: Awake HEAD: No signs of head trauma. EYES: Pupils are equal. Extraocular motions intact. MOUTH: Oropharynx is normal. NECK: No adenopathy, no JVD. CHEST: Chest with diminished breath sounds bilaterally. No wheezes, rales, or rhonchi. CARDIAC: normal S1 and S2, without murmurs, gallops, or rubs. ABDOMEN: Soft, non tender and non distended. No rebound or guarding, and no masses palpated. Bowel Sounds normal. MUSCULOSKELETAL: No edema NEUROLOGIC EXAM: Alert and oriented x3. No focal neurologic deficits SKIN: No obvious lesions - Constitutional Vitals: Temp Pulse Resp BP Pulse Ox 98.8 F 92 H 20 176/104 96 08/28/20 04:37 08/28/20 10:06 08/28/20 04:37 08/28/20 10:06 08/28/20 08:42 Results - Labs CBC & Chem 7: 08/28/20 05:24 08/28/20 05:24 Labs: Laboratory Last Values WBC 19.9 K/mm3 (4.5-11.0) H 08/28/20 05:24 RBC 4.58 M/mm3 (3.65-5.03) 08/28/20 05:24 Hgb 14.7 gm/dl (11.8-15.2) 08/28/20 05:24 Hct 43.4 % (35.5-45.6) 08/28/20 05:24 MCV 95 fl (84-94) H 08/28/20 05:24 MCH 32 pg (28-32) 08/28/20 05:24 MCHC 34 % (32-34) 08/28/20 05:24 RDW 14.7 % (13.2-15.2) 08/28/20 05:24 Plt Count 374 K/mm3 (140-440) 08/28/20 05:24 Lymph % (Auto) 16.9 % (13.4-35.0) 08/26/20 13:02 [place] % (Auto) 8.6 % (0.0-7.3) H 08/26/20 13:02 Eos % (Auto) 0.5 % (0.0-4.3) 08/26/20 13:02 Baso % (Auto) 0.8 % (0.0-1.8) 08/26/20 13:02 Lymph # (Auto) 1.7 K/mm3 (1.2-5.4) 08/26/20 13:02 [place] # (Auto) 0.9 K/mm3 (0.0-0.8) H 08/26/20 13:02 Eos # (Auto) 0.0 K/mm3 (0.0-0.4) 08/26/20 13:02 Baso # (Auto) 0.1 K/mm3 (0.0-0.1) 08/26/20 13:02 Add Manual Diff Complete 08/28/20 05:24 Total Counted 100 08/28/20 05:24 Seg Neutrophils % [employer] Professor 08/28/20 05:24 Seg Neuts % (Manual) 89.0 % (40.0-70.0) H 08/28/20 05:24 Lymphocytes % (Manual) 3.0 % (13.4-35.0) L 08/28/20 05:24 Monocytes % (Manual) 7.0 % (0.0-7.3) 08/28/20 05:24 Metamyelocytes % 1.0 % 08/28/20 05:24 Nucleated RBC % Not Reportable 08/28/20 05:24 Seg Neutrophils # 7.5 K/mm3 (1.8-7.7) 08/26/20 13:02 Seg Neutrophils # Man 17.7 K/mm3 (1.8-7.7) H 08/28/20 05:24 Band Neutrophils # 0.0 K/mm3 08/28/20 05:24 Lymphocytes # (Manual) 0.6 K/mm3 (1.2-5.4) L 08/28/20 05:24 Abs React Lymphs (Man) 0.0 K/mm3 08/28/20 05:24 Monocytes # (Manual) 1.4 K/mm3 (0.0-0.8) H 08/28/20 05:24 Eosinophils # (Manual) 0.0 K/mm3 (0.0-0.4) 08/28/20 05:24 Basophils # (Manual) 0.0 K/mm3 (0.0-0.1) 08/28/20 05:24 Metamyelocytes # 0.2 K/mm3 08/28/20 05:24 Myelocytes # 0.0 K/mm3 08/28/20 05:24 Promyelocytes # 0.0 K/mm3 08/28/20 05:24 Blast Cells # 0.0 K/mm3 08/28/20 05:24 WBC Morphology Not Reportable 08/28/20 05:24 Hypersegmented Neuts Not Reportable 08/28/20 05:24 Hyposegmented Neuts Not Reportable 08/28/20 05:24 Hypogranular Neuts Not Reportable 08/28/20 05:24 Smudge Cells Not Reportable 08/28/20 05:24 Toxic Granulation Not Reportable 08/28/20 05:24 Toxic Vacuolation Not Reportable 08/28/20 05:24 Dohle Bodies Not Reportable 08/28/20 05:24 Pelger-Huet Anomaly Not Reportable 08/28/20 05:24 Jesse Rods Not Reportable 08/28/20 05:24 Platelet Estimate Consistent w auto 08/28/20 05:24 Clumped Platelets Not Reportable 08/28/20 05:24 Plt Clumps, EDTA Not Reportable 08/28/20 05:24 Large Platelets Not Reportable 08/28/20 05:24 Giant Platelets Not Reportable 08/28/20 05:24 Platelet Satelliting Not Reportable 08/28/20 05:24 Plt Morphology Comment Not Reportable 08/28/20 05:24 RBC Morphology Normal 08/28/20 05:24 Dimorphic RBCs Not Reportable 08/28/20 05:24 Polychromasia Not Reportable 08/28/20 05:24 Hypochromasia Not Reportable 08/28/20 05:24 Poikilocytosis Not Reportable 08/28/20 05:24 Anisocytosis Not Reportable 08/28/20 05:24 Microcytosis Not Reportable 08/28/20 05:24 Macrocytosis Not Reportable 08/28/20 05:24 Spherocytes Not Reportable 08/28/20 05:24 Pappenheimer Bodies Not Reportable 08/28/20 05:24 Sickle Cells Not Reportable 08/28/20 05:24 Target Cells Not Reportable 08/28/20 05:24 Tear Drop Cells Not Reportable 08/28/20 05:24 Ovalocytes Not Reportable 08/28/20 05:24 Helmet Cells Not Reportable 08/28/20 05:24 [place] Bodies Not Reportable 08/28/20 05:24 [place] Rings Not Reportable 08/28/20 05:24 Alec Cells Not Reportable 08/28/20 05:24 Bite Cells Not Reportable 08/28/20 05:24 Crenated Cell Not Reportable 08/28/20 05:24 Elliptocytes Not Reportable 08/28/20 05:24 Acanthocytes (Spur) Not Reportable 08/28/20 05:24 Rouleaux Not Reportable 08/28/20 05:24 Hemoglobin C Crystals Not Reportable 08/28/20 05:24 Schistocytes Not Reportable 08/28/20 05:24 Malaria parasites Not Reportable 08/28/20 05:24 Tomi Bodies Not Reportable 08/28/20 05:24 Hem Pathologist Commnt No 08/28/20 05:24 D-Dimer 493.28 ng/mlDDU (0-234) H 08/26/20 18:21 Sodium 142 mmol/L (137-145) 08/28/20 05:24 Potassium 4.2 mmol/L (3.6-5.0) 08/28/20 05:24 Chloride 105.3 mmol/L (98-107) 08/28/20 05:24 Carbon Dioxide 26 mmol/L (22-30) 08/28/20 05:24 Anion Gap 15 mmol/L 08/28/20 05:24 BUN 25 mg/dL (9-20) H 08/28/20 05:24 Creatinine 1.0 mg/dL (0.8-1.3) 08/28/20 05:24 Estimated GFR > 60 ml/min 08/28/20 05:24 BUN/Creatinine Ratio 25 % 08/28/20 05:24 Glucose 128 mg/dL (75-100) H 08/28/20 05:24 Lactic Acid 1.30 mmol/L (0.7-2.0) 08/27/20 00:44 Calcium 8.6 mg/dL (8.4-10.2) 08/28/20 05:24 Ferritin 112.6 ng/mL (30.0-300.0) 08/26/20 18:21 Total Bilirubin 0.50 mg/dL (0.1-1.2) 08/28/20 05:24 AST 20 units/L (5-40) 08/28/20 05:24 ALT 37 units/L (7-56) 08/28/20 05:24 Alkaline Phosphatase 111 units/L (35-129) 08/28/20 05:24 Lactate Dehydrogenase 282 units/L (91-180) H 08/26/20 18:21 C-Reactive Protein 1.50 mg/dL (0.00-1.30) H 08/26/20 18:21 NT-Pro-B Natriuret Pep 6395 pg/mL (0-900) H 08/28/20 05:24 Total Protein 7.5 g/dL (6.3-8.2) 08/28/20 05:24 Albumin 3.6 g/dL (3.9-5) L 08/28/20 05:24 Albumin/Globulin Ratio 0.9 % 08/28/20 05:24 Procalcitonin 1.37 ng/mL (<0.15) 08/26/20 18:21 Nasal Screen MRSA (PCR) Negative (Negative) 08/27/20 Unknown Coronavirus (PCR) Negative (Negative) 08/26/20 Unknown Microbiology: Microbiology 08/26/20 18:21 Peripheral/Venous Blood Culture - Preliminary NO GROWTH AFTER 24 HOURS 08/26/20 18:30 Peripheral/Venous Blood Culture - Preliminary NO GROWTH AFTER 24 HOURS Merino/IV: Voiding Method Toilet Active Medications - Current Medications Current Medications: Generic Name Dose Route Start Last Admin Trade Name Freq PRN Reason Stop Dose Admin Acetaminophen 650 mg 08/26/20 18:30 Acetaminophen 325 Mg Tab PO Q4H PRN Pain MILD(1-3)/Fever >100.5/MARIA Albuterol 2.5 mg 08/26/20 18:30 Albuterol 2.5 Mg/3 Ml Nebu IH Q4HRT PRN Shortness Of Breath Amlodipine Besylate 10 mg 08/27/20 10:00 08/28/20 10:07 Amlodipine 10 Mg Tab PO 10 mg QDAY RISHI Administration Ascorbic Acid 500 mg 08/26/20 22:00 08/28/20 10:06 Ascorbic Acid 500 Mg Tab PO 500 mg BID RISHI Administration Azithromycin 500 mg 08/28/20 10:00 08/28/20 10:06 Azithromycin 250 Mg Tab PO 08/30/20 12:00 500 mg QDAY RISHI Administration Cholecalciferol 1,000 unit 08/27/20 10:00 08/28/20 10:07 Cholecalciferol (Vit D3) 1000 Unit (25 Mcg) Tab PO 1,000 unit QDAY RISHI Administration Famotidine 20 mg 08/26/20 22:00 08/28/20 10:06 Famotidine 20 Mg Tab PO 20 mg BID RISHI Administration Furosemide 40 mg 08/28/20 09:00 08/28/20 10:05 Furosemide 40 Mg/4 Ml Inj IV 40 mg 0600,1800 RISHI Administration Heparin Sodium (Porcine) 5,000 unit 08/26/20 22:00 08/28/20 10:05 Heparin 5,000 Unit/1 Ml Vial SUB-Q 5,000 unit Q12HR RISHI Administration Hydralazine HCl 10 mg 08/26/20 19:11 08/27/20 06:12 Hydralazine 20 Mg/1 Ml Inj IV 10 mg Q8HR PRN Administration Hypertension Hydralazine HCl 50 mg 08/28/20 14:00 Hydralazine 25 Mg Tab PO Q8HR RISHI Ceftriaxone Sodium 2 gm in 100 mls @ 200 mls/hr 08/27/20 10:00 08/28/20 10:05 Rocephin/Ns 2 Gm/100 Ml IV 200 mls/hr Q24HR RISHI Administration Protocol Losartan Potassium 100 mg 08/28/20 10:17 Losartan 50 Mg Tab PO QDAY RISHI Methylprednisolone Sodium Succinate 40 mg 08/26/20 22:00 08/28/20 05:42 Methylprednisolone Sod Succinate 40 Mg/1 Ml Inj IV 40 mg Q8H RISHI Administration Ondansetron HCl 4 mg 08/26/20 18:30 Ondansetron 4 Mg/2 Ml Inj IV Q8H PRN Nausea And Vomiting Sodium Chloride 10 ml 08/26/20 22:00 08/28/20 10:07 Sodium Chloride 0.9% 10 Ml Flush Syringe IV 10 ml BID RISHI Administration Sodium Chloride 10 ml 08/26/20 18:30 Sodium Chloride 0.9% 10 Ml Flush Syringe IV PRN PRN LINE FLUSH Zinc Sulfate 220 mg 08/26/20 22:00 08/28/20 10:06 Zinc Sulfate 220 Mg Cap PO 220 mg BID RISHI Administration
[2020-08-28] MEDS ORDERED: LOSARTAN 50 MG TAB PO NR (10:30)
[2020-08-28] MEDS: hydrALAZINE 25 MG TAB PO SCH ×2 (13:16→21:35)
[2020-08-29] MEDS: hydrALAZINE 25 MG TAB PO SCH ×3 (05:32→23:01)
[2020-08-29] MEDS: FUROSEMIDE 40 MG/4 ML INJ IV SCH ×2 (05:32→17:52)
[2020-08-29] MEDS: methylPREDNISolone Sod Succinate 40 MG/1 ML INJ IV SCH (05:32)
[2020-08-29] MEDS: hydrALAZINE 20 MG/1 ML INJ IV PRN (07:00)
[2020-08-29 08:02] LABS: Hematocrit 48.3 % (35.5-45.6); Hemoglobin 16.8 gm/dl (11.8-15.2); Mean Corpuscular HGB Conc 35 % (32-34); Mean Corpuscular Volume 94 fl (84-94); Platelet Count 413 K/mm3 (140-440); Red Blood Count 5.16 M/mm3 (3.65-5.03); Red Cell Distribution Width 14.4 % (13.2-15.2)
[2020-08-29 08:27] LABS: Alanine Aminotransferase 43 units/L (7-56); Albumin 3.5 g/dL (3.9-5); BUN/Creatinine Ratio 30; Blood Urea Nitrogen 30 mg/dL (9-20); Calcium 8.7 mg/dL (8.4-10.2); Hemolysis Index 14
--- NOTE | 2020-08-29 08:55 | XRay Report ---
CHEST 1 VIEW 08/29/2020 7:42 AM INDICATION / CLINICAL INFORMATION: Hypoxia. COMPARISON: 08/26/2020 FINDINGS: SUPPORT DEVICES: None. HEART / MEDIASTINUM: Stable. LUNGS / PLEURA: Improved bilateral pulmonary opacities when compared to prior exam. No pleural effusi on. No pneumothorax. ADDITIONAL FINDINGS: No significant additional findings. IMPRESSION: 1. Improved bilateral pulmonary opacities when compared to 08/26/2020. Signer Name: Epifanio Houston MD Signed: 08/29/2020 8:51 AM Workstation Name: [id number]
[2020-08-29] MEDS: cefTRIAXone/NS 2 GM/100 ML 2 GM/100 ML BAG IV SCH (09:35)
[2020-08-29] MEDS: AZITHROMYCIN 250 MG TAB PO SCH (09:36)
[2020-08-29] MEDS: HEPARIN 5,000 UNIT/1 ML VIAL SUB-Q SCH ×2 (09:36→23:02)
[2020-08-29] MEDS: LOSARTAN 50 MG TAB PO SCH (09:37)
[2020-08-29] MEDS: CHOLECALCIFEROL (VIT D3) 1000 UNIT (25 mcg) TAB PO SCH (09:37)
[2020-08-29] MEDS: NIFEdipine XL 60 MG TAB PO SCH ×2 (09:38→23:02)
[2020-08-29] MEDS: ZINC SULFATE 220 MG CAP PO SCH (09:38)
[2020-08-29] MEDS: ASCORBIC ACID 500 MG TAB PO SCH ×2 (09:38→23:02)
[2020-08-29] MEDS: FAMOTIDINE 20 MG TAB PO SCH ×2 (09:39→23:02)
[2020-08-29 09:54] LABS: Total Cells Counted 100
[2020-08-29 09:55] LABS: Platelet Estimate Consistent w Auto; RBC Morphology Normal
--- NOTE | 2020-08-29 09:59 | Progress Note ---
Assessment and Plan Assessment and plan: #Acute pulse respiratory failure Secondary to pneumonia Continue oxygen supplementation COVID-19 test negative Repeat chest x-ray shows improved pulmonary opacities Taper steroids #COVID-19 ruled out #Hypertensive urgency Improved Nifedipine, hydralazine, and losartan Continue to monitor blood pressure closely #Acute on chronic diastolic heart failure Lasix 40 mg daily Cardiology recommendations appreciated #Obesity hypoventilation syndrome Pulmonology follow-up for sleep study #DVT prophylaxis-Heparin Full code Disposition-likely home when stable History Interval history: 55 YO Male with Obesity, HTN, Medication Noncompliance presents to ED for evaluation. Patient reports "I cannot breathe. Patient states that he has experienced shortness of breath over the past 3 days with progressively worsening symptoms over the same timeframe. Patient acknowledges malaise, fatigue, decreased exercise tolerance, as well as dry cough. Patient transpo rted to [facility] via private vehicle for further care and evaluation of the aforementioned symptoms. The patient was seen and evaluated in the emergency department. All lab and imaging studies reviewed. Patient found to have a pulse oximetry of 88% on room air with exertion. Patient is unable to ambulate more than 10 feet without stopping due to shortness of breath. Patient is using accessory muscles to breathe. Patient symptoms consistent with acute hypoxemic respiratory failure. Patient underwent chest x-ray and was found to have bilateral pneumonia. Patient admitted to medical floor and initiated on pneumonia protocol as well as coronavirus protocol. Patient denies fever, chills, chest pain, palpitation, skin rash, recent ill contacts, or known exposure to COVID-19. No prior admission for review. No medication listed at time of admission for reconciliation. Hospital course 08/27. Patient is on methylprednisolone 40 every 8 and antibiotics for pneumonia. COVID-19 test pending. He notes occasional cough. Denies any fever. proBNP ordered. 08/28. COVID-19 test is negative. Taper steroids. His proBNP is elevated to more than 6000. Patient started on Lasix 40 mg twice daily. Echocardiogram performed but results still pending. Telemetry-sinus rhythm in the 80s -no conduction block. 08/29. Feels better. Repeat chest x-ray shows improving pulmonary opacities. Remains on IV antibiotics. Also on IV Lasix. Echocardiogram showed normal EF 55 to 60%. His blood pressure is limited so amlodipine has been switched to nifedipine. Continue hydralazine and losartan. Continue to monitor closely. Needs a walk test Hospitalist Physical - Physical exam Narrative exam: VITAL SIGNS: Reviewed. GENERAL: Awake HEAD: No signs of head trauma. EYES: Pupils are equal. Extraocular motions intact. MOUTH: Oropharynx is normal. NECK: No adenopathy, no JVD. CHEST: Chest with diminished breath sounds bilaterally. No wheezes, rales, or rhonchi. CARDIAC: normal S1 and S2, without murmurs, gallops, or rubs. ABDOMEN: Soft, non tender and non distended. No rebound or guarding, and no masses palpated. Bowel Sounds normal. MUSCULOSKELETAL: No edema NEUROLOGIC EXAM: Alert and oriented x3. No focal neurologic deficits SKIN: No obvious lesions - Constitutional Vitals: Temp Pulse Resp BP Pulse Ox 97.6 F 93 H 16 146/104 93 08/29/20 09:39 08/29/20 09:39 08/29/20 09:39 08/29/20 09:39 08/29/20 09:39 General appearance: Present: obese Results - Labs CBC & Chem 7: 08/31/20 05:49 08/31/20 05:49 Labs: Laboratory Last Values WBC 22.9 K/mm3 (4.5-11.0) H 08/29/20 07:25 RBC 5.16 M/mm3 (3.65-5.03) H 08/29/20 07:25 Hgb 16.8 gm/dl (11.8-15.2) H 08/29/20 07:25 Hct 48.3 % (35.5-45.6) H 08/29/20 07:25 MCV 94 fl (84-94) 08/29/20 07:25 MCH 33 pg (28-32) H 08/29/20 07:25 MCHC 35 % (32-34) H 08/29/20 07:25 RDW 14.4 % (13.2-15.2) 08/29/20 07:25 Plt Count 413 K/mm3 (140-440) 08/29/20 07:25 Lymph % (Auto) 16.9 % (13.4-35.0) 08/26/20 13:02 [place] % (Auto) 8.6 % (0.0-7.3) H 08/26/20 13:02 Eos % (Auto) 0.5 % (0.0-4.3) 08/26/20 13:02 Baso % (Auto) 0.8 % (0.0-1.8) 08/26/20 13:02 Lymph # (Auto) 1.7 K/mm3 (1.2-5.4) 08/26/20 13:02 [place] # (Auto) 0.9 K/mm3 (0.0-0.8) H 08/26/20 13:02 Eos # (Auto) 0.0 K/mm3 (0.0-0.4) 08/26/20 13:02 Baso # (Auto) 0.1 K/mm3 (0.0-0.1) 08/26/20 13:02 Add Manual Diff Complete 08/29/20 07:25 Total Counted 100 08/29/20 07:25 Seg Neutrophils % [employer] Programmer 08/29/20 07:25 Seg Neuts % (Manual) 89.0 % (40.0-70.0) H 08/29/20 07:25 Lymphocytes % (Manual) 6.0 % (13.4-35.0) L 08/29/20 07:25 Monocytes % (Manual) 5.0 % (0.0-7.3) 08/29/20 07:25 Metamyelocytes % 1.0 % 08/28/20 05:24 Nucleated RBC % Not Reportable 08/29/20 07:25 Seg Neutrophils # 7.5 K/mm3 (1.8-7.7) 08/26/20 13:02 Seg Neutrophils # Man 20.4 K/mm3 (1.8-7.7) H 08/29/20 07:25 Band Neutrophils # 0.0 K/mm3 08/29/20 07:25 Lymphocytes # (Manual) 1.4 K/mm3 (1.2-5.4) 08/29/20 07:25 Abs React Lymphs (Man) 0.0 K/mm3 08/29/20 07:25 Monocytes # (Manual) 1.1 K/mm3 (0.0-0.8) H 08/29/20 07:25 Eosinophils # (Manual) 0.0 K/mm3 (0.0-0.4) 08/29/20 07:25 Basophils # (Manual) 0.0 K/mm3 (0.0-0.1) 08/29/20 07:25 Metamyelocytes # 0.0 K/mm3 08/29/20 07:25 Myelocytes # 0.0 K/mm3 08/29/20 07:25 Promyelocytes # 0.0 K/mm3 08/29/20 07:25 Blast Cells # 0.0 K/mm3 08/29/20 07:25 WBC Morphology Not Reportable 08/29/20 07:25 Hypersegmented Neuts Not Reportable 08/29/20 07:25 Hyposegmented Neuts Not Reportable 08/29/20 07:25 Hypogranular Neuts Not Reportable 08/29/20 07:25 Smudge Cells Not Reportable 08/29/20 07:25 Toxic Granulation Not Reportable 08/29/20 07:25 Toxic Vacuolation Not Reportable 08/29/20 07:25 Dohle Bodies Not Reportable 08/29/20 07:25 Pelger-Huet Anomaly Not Reportable 08/29/20 07:25 Jesse Rods Not Reportable 08/29/20 07:25 Platelet Estimate Consistent w auto 08/29/20 07:25 Clumped Platelets Not Reportable 08/29/20 07:25 Plt Clumps, EDTA Not Reportable 08/29/20 07:25 Large Platelets Not Reportable 08/29/20 07:25 Giant Platelets Not Reportable 08/29/20 07:25 Platelet Satelliting Not Reportable 08/29/20 07:25 Plt Morphology Comment Not Reportable 08/29/20 07:25 RBC Morphology Normal 08/29/20 07:25 Dimorphic RBCs Not Reportable 08/29/20 07:25 Polychromasia Not Reportable 08/29/20 07:25 Hypochromasia Not Reportable 08/29/20 07:25 Poikilocytosis Not Reportable 08/29/20 07:25 Anisocytosis Not Reportable 08/29/20 07:25 Microcytosis Not Reportable 08/29/20 07:25 Macrocytosis Not Reportable 08/29/20 07:25 Spherocytes Not Reportable 08/29/20 07:25 Pappenheimer Bodies Not Reportable 08/29/20 07:25 Sickle Cells Not Reportable 08/29/20 07:25 Target Cells Not Reportable 08/29/20 07:25 Tear Drop Cells Not Reportable 08/29/20 07:25 Ovalocytes Not Reportable 08/29/20 07:25 Helmet Cells Not Reportable 08/29/20 07:25 [place] Bodies Not Reportable 08/29/20 07:25 [place] Rings Not Reportable 08/29/20 07:25 [place] Cells Not Reportable 08/29/20 07:25 Bite Cells Not Reportable 08/29/20 07:25 Crenated Cell Not Reportable 08/29/20 07:25 Elliptocytes Not Reportable 08/29/20 07:25 Acanthocytes (Spur) Not Reportable 08/29/20 07:25 Rouleaux Not Reportable 08/29/20 07:25 Hemoglobin C Crystals Not Reportable 08/29/20 07:25 Schistocytes Not Reportable 08/29/20 07:25 Malaria parasites Not Reportable 08/29/20 07:25 Tomi Bodies Not Reportable 08/29/20 07:25 Hem Pathologist Commnt No 08/29/20 07:25 D-Dimer 493.28 ng/mlDDU (0-234) H 08/26/20 18:21 Sodium 140 mmol/L (137-145) 08/29/20 07:25 Potassium 3.8 mmol/L (3.6-5.0) 08/29/20 07:25 Chloride 98.5 mmol/L (98-107) 08/29/20 07:25 Carbon Dioxide 29 mmol/L (22-30) 08/29/20 07:25 Anion Gap 16 mmol/L 08/29/20 07:25 BUN 30 mg/dL (9-20) H 08/29/20 07:25 Creatinine 1.0 mg/dL (0.8-1.3) 08/29/20 07:25 Estimated GFR > 60 ml/min 08/29/20 07:25 BUN/Creatinine Ratio 30 % 08/29/20 07:25 Glucose 128 mg/dL (75-100) H 08/29/20 07:25 Lactic Acid 1.30 mmol/L (0.7-2.0) 08/27/20 00:44 Calcium 8.7 mg/dL (8.4-10.2) 08/29/20 07:25 Ferritin 112.6 ng/mL (30.0-300.0) 08/26/20 18:21 Total Bilirubin 0.60 mg/dL (0.1-1.2) 08/29/20 07:25 AST 25 units/L (5-40) 08/29/20 07:25 ALT 43 units/L (7-56) 08/29/20 07:25 Alkaline Phosphatase 112 units/L (35-129) 08/29/20 07:25 Lactate Dehydrogenase 282 units/L (91-180) H 08/26/20 18:21 C-Reactive Protein 1.50 mg/dL (0.00-1.30) H 08/26/20 18:21 NT-Pro-B Natriuret Pep 6395 pg/mL (0-900) H 08/28/20 05:24 Total Protein 8.0 g/dL (6.3-8.2) 08/29/20 07:25 Albumin 3.5 g/dL (3.9-5) L 08/29/20 07:25 Albumin/Globulin Ratio 0.8 % 08/29/20 07:25 Procalcitonin 1.37 ng/mL (<0.15) 08/26/20 18:21 Nasal Screen MRSA (PCR) Negative (Negative) 08/27/20 Unknown Coronavirus (PCR) Negative (Negative) 08/26/20 Unknown Microbiology: Microbiology 08/26/20 18:21 Peripheral/Venous Blood Culture - Preliminary NO GROWTH AFTER 48 HOURS 08/26/20 18:30 Peripheral/Venous Blood Culture - Preliminary NO GROWTH AFTER 48 HOURS Merino/IV: Voiding Method Urinal Active Medications - Current Medications Current Medications: Generic Name Dose Route Start Last Admin Trade Name Freq PRN Reason Stop Dose Admin Acetaminophen 650 mg 08/26/20 18:30 Acetaminophen 325 Mg Tab PO Q4H PRN Pain MILD(1-3)/Fever >100.5/MARIA Albuterol 2.5 mg 08/26/20 18:30 Albuterol 2.5 Mg/3 Ml Nebu IH Q4HRT PRN Shortness Of Breath Ascorbic Acid 500 mg 08/26/20 22:00 08/29/20 09:38 Ascorbic Acid 500 Mg Tab PO 500 mg BID RISHI Administration Azithromycin 500 mg 08/28/20 10:00 08/29/20 09:36 Azithromycin 250 Mg Tab PO 08/30/20 12:00 500 mg QDAY RISHI Administration Cholecalciferol 1,000 unit 08/27/20 10:00 08/29/20 09:37 Cholecalciferol (Vit D3) 1000 Unit (25 Mcg) Tab PO 1,000 unit QDAY RISHI Administration Famotidine 20 mg 08/26/20 22:00 08/29/20 09:39 Famotidine 20 Mg Tab PO 20 mg BID RSIHI Administration Furosemide 40 mg 08/28/20 09:00 08/29/20 05:32 Furosemide 40 Mg/4 Ml Inj IV 40 mg 0600,1800 RISHI Administration Heparin Sodium (Porcine) 5,000 unit 08/26/20 22:00 08/29/20 09:36 Heparin 5,000 Unit/1 Ml Vial SUB-Q 5,000 unit Q12HR RISHI Administration Hydralazine HCl 10 mg 08/26/20 19:11 08/29/20 07:00 Hydralazine 20 Mg/1 Ml Inj IV 10 mg Q8HR PRN Administration Hypertension Hydralazine HCl 50 mg 08/28/20 14:00 08/29/20 05:32 Hydralazine 25 Mg Tab PO 50 mg Q8HR RISHI Administration Ceftriaxone Sodium 2 gm in 100 mls @ 200 mls/hr 08/27/20 10:00 08/29/20 09:35 Rocephin/Ns 2 Gm/100 Ml IV 200 mls/hr Q24HR RISHI Administration Protocol Losartan Potassium 100 mg 08/29/20 10:00 08/29/20 09:37 Losartan 50 Mg Tab PO 100 mg QDAY RISHI Administration Methylprednisolone Sodium Succinate 40 mg 08/29/20 10:00 Methylprednisolone Sod Succinate 40 Mg/1 Ml Inj IV Q12H RISHI Nifedipine 60 mg 08/29/20 10:00 08/29/20 09:38 Nifedipine Xl 60 Mg Tab PO 60 mg Q12HR RISHI Administration Ondansetron HCl 4 mg 08/26/20 18:30 Ondansetron 4 Mg/2 Ml Inj IV Q8H PRN Nausea And Vomiting Sodium Chloride 10 ml 08/26/20 22:00 08/29/20 09:38 Sodium Chloride 0.9% 10 Ml Flush Syringe IV 10 ml BID RISHI Administration Sodium Chloride 10 ml 08/26/20 18:30 Sodium Chloride 0.9% 10 Ml Flush Syringe IV PRN PRN LINE FLUSH Zinc Sulfate 220 mg 08/26/20 22:00 08/29/20 09:38 Zinc Sulfate 220 Mg Cap PO 220 mg BID RISHI Administration
[2020-08-29] MEDS ORDERED: methylPREDNISolone Sod Succinate 40 MG/1 ML INJ IV SCH (18:00)
[2020-08-30] MEDS: hydrALAZINE 25 MG TAB PO SCH ×3 (05:05→22:36)
[2020-08-30 09:49] LABS: Hematocrit 52.6 % (35.5-45.6); Hemoglobin 17.7 gm/dl (11.8-15.2); Mean Corpuscular HGB Conc 34 % (32-34); Mean Corpuscular Volume 94 fl (84-94); Platelet Count 443 K/mm3 (140-440); Red Blood Count 5.58 M/mm3 (3.65-5.03); Red Cell Distribution Width 14.9 % (13.2-15.2)
[2020-08-30] MEDS: cefTRIAXone/NS 2 GM/100 ML 2 GM/100 ML BAG IV SCH (10:07)
[2020-08-30] MEDS: LOSARTAN 50 MG TAB PO SCH (10:08)
[2020-08-30] MEDS: FUROSEMIDE 20 MG TAB PO SCH (10:10)
[2020-08-30] MEDS: HEPARIN 5,000 UNIT/1 ML VIAL SUB-Q SCH ×2 (10:10→22:36)
[2020-08-30] MEDS: NIFEdipine XL 60 MG TAB PO SCH ×2 (10:11→22:36)
[2020-08-30] MEDS: FAMOTIDINE 20 MG TAB PO SCH ×2 (10:11→22:36)
[2020-08-30] MEDS: AZITHROMYCIN 250 MG TAB PO SCH (10:12)
[2020-08-30] MEDS: ASCORBIC ACID 500 MG TAB PO SCH ×2 (10:12→22:36)
[2020-08-30] MEDS: CHOLECALCIFEROL (VIT D3) 1000 UNIT (25 mcg) TAB PO SCH (10:12)
[2020-08-30 10:13] LABS: Alanine Aminotransferase 45 units/L (7-56); Albumin 3.3 g/dL (3.9-5); BUN/Creatinine Ratio 29; Blood Urea Nitrogen 35 mg/dL (9-20); Calcium 8.9 mg/dL (8.4-10.2); Hemolysis Index 7
[2020-08-30 11:39] LABS: Platelet Estimate Consistent w Auto; RBC Morphology Normal; Total Cells Counted 100
[2020-08-30] MEDS: METOPROLOL SUCCINATE XL 25 MG TAB PO SCH (18:12)
[2020-08-31] MEDS: hydrALAZINE 25 MG TAB PO SCH ×2 (05:35→13:42)
[2020-08-31 07:01] LABS: Hematocrit 54.4 % (35.5-45.6); Hemoglobin 17.7 gm/dl (11.8-15.2); Mean Corpuscular HGB Conc 33 % (32-34); Mean Corpuscular Volume 94 fl (84-94); Platelet Count 448 K/mm3 (140-440); Red Blood Count 5.82 M/mm3 (3.65-5.03); Red Cell Distribution Width 14.9 % (13.2-15.2)
[2020-08-31 08:12] LABS: Platelet Estimate Consistent w Auto; RBC Morphology Normal; Total Cells Counted 100
[2020-08-31 08:25] LABS: Alanine Aminotransferase 59 units/L (7-56); Albumin 3.5 g/dL (3.9-5); BUN/Creatinine Ratio 30; Blood Urea Nitrogen 33 mg/dL (9-20); Calcium 8.8 mg/dL (8.4-10.2); Hemolysis Index 11
--- NOTE | 2020-08-31 09:09 | Progress Note ---
Assessment and Plan Assessment and plan: #Acute pulse respiratory failure Secondary to pneumonia Continue oxygen supplementation COVID-19 test negative Repeat chest x-ray shows improved pulmonary opacities Taper steroids #COVID-19 ruled out #Hypertensive urgency Improved Nifedipine, hydralazine, and losartan Continue to monitor blood pressure closely #Acute on chronic diastolic heart failure Lasix 40 mg daily Cardiology recommendations appreciated #Obesity hypoventilation syndrome Pulmonology follow-up for sleep study #Cardiac arrhythmias Cardiology consulted for SVT #DVT prophylaxis-Heparin Full code Disposition-likely home when stable History Interval history: 55 YO Male with Obesity, HTN, Medication Noncompliance presents to ED for evaluation. Patient reports "I cannot breathe. Patient states that he has experienced shortness of breath over the past 3 days with progressively w orsening symptoms over the same timeframe. Patient acknowledges malaise, fatigue, decreased exercise tolerance, as well as dry cough. Patient transported to [facility] via private vehicle for further care and evaluation of the aforementioned symptoms. The patient was seen and evaluated in the emergency department. All lab and imaging studies reviewed. Patient found to have a pulse oximetry of 88% on room air with exertion. Patient is unable to ambulate more than 10 feet without stopping due to shortness of breath. Patient is using accessory muscles to breathe. Patient symptoms consistent with acute hypoxemic respiratory failure. Patient underwent chest x-ray and was found to have bilateral pneumonia. Patient admitted to medical floor and initiated on pneumonia protocol as well as coronavirus protocol. Patient denies fever, chills, chest pain, palpitation, skin rash, recent ill contacts, or known exposure to COVID-19. No prior admission for review. No medication listed at time of admission for reconciliation. Hospital course 08/27. Patient is on methylprednisolone 40 every 8 and antibiotics for pneumonia. COVID-19 test pending. He notes occasional cough. Denies any fever. proBNP ordered. 08/28. COVID-19 test is negative. Taper steroids. His proBNP is elevated to mo re than 6000. Patient started on Lasix 40 mg twice daily. Echocardiogram performed but results still pending. Telemetry-sinus rhythm in the 80s -no conduction block. 08/29. Feels better. Repeat chest x-ray shows improving pulmonary opacities. Remains on IV antibiotics. Also on IV Lasix. Echocardiogram showed normal EF 55 to 60%. His blood pressure is limited so amlodipine has been switched to nifedipine. Continue hydralazine and losartan. Continue to monitor closely. Needs a walk test 08/30. Patient had a walk test and oxygen remained above 95%. Also had showed possible SVT. Cardiology consulted. He remains on IV antibiotics for pneumonia. Hospitalist Physical - Physical exam Narrative exam: VITAL SIGNS: Reviewed. GENERAL: Awake HEAD: No signs of head trauma. EYES: Pupils are equal. Extraocular motions intact. MOUTH: Oropharynx is normal. NECK: No adenopathy, no JVD. CHEST: Chest with diminished breath sounds bilaterally. No wheezes, rales, or rhonchi. CARDIAC: normal S1 and S2, without murmurs, gallops, or rubs. ABDOMEN: Soft, non tender and non distended. No rebound or guarding, and no masses palpated. Bowel Sounds normal. MUSCULOSKELETAL: No edema NEUROLOGIC EXAM: Alert and oriented x3. No focal neurologic deficits SKIN: No obvious lesions - Constitutional Vitals: Temp Pulse Resp BP Pulse Ox 98.4 F 86 18 127/93 93 08/31/20 04:08 08/31/20 04:08 08/31/20 08:32 08/31/20 04:08 08/31/20 04:08 General appearance: Present: obese Results - Labs CBC & Chem 7: 08/31/20 05:49 08/31/20 05:49 Labs: Laboratory Last Values WBC 15.0 K/mm3 (4.5-11.0) H 08/31/20 05:49 RBC 5.82 M/mm3 (3.65-5.03) H 08/31/20 05:49 Hgb 17.7 gm/dl (11.8-15.2) H 08/31/20 05:49 Hct 54.4 % (35.5-45.6) H 08/31/20 05:49 MCV 94 fl (84-94) 08/31/20 05:49 MCH 31 pg (28-32) 08/31/20 05:49 MCHC 33 % (32-34) 08/31/20 05:49 RDW 14.9 % (13.2-15.2) 08/31/20 05:49 Plt Count 448 K/mm3 (140-440) H 08/31/20 05:49 Lymph % (Auto) 16.9 % (13.4-35.0) 08/26/20 13:02 [place] % (Auto) 8.6 % (0.0-7.3) H 08/26/20 13:02 Eos % (Auto) 0.5 % (0.0-4.3) 08/26/20 13:02 Baso % (Auto) 0.8 % (0.0-1.8) 08/26/20 13:02 Lymph # (Auto) 1.7 K/mm3 (1.2-5.4) 08/26/20 13:02 [place] # (Auto) 0.9 K/mm3 (0.0-0.8) H 08/26/20 13:02 Eos # (Auto) 0.0 K/mm3 (0.0-0.4) 08/26/20 13:02 Baso # (Auto) 0.1 K/mm3 (0.0-0.1) 08/26/20 13:02 Add Manual Diff Complete 08/31/20 05:49 Total Counted 100 08/31/20 05:49 Seg Neutrophils % [employer] [place] 08/29/20 07:25 Seg Neuts % (Manual) 63.0 % (40.0-70.0) 08/31/20 05:49 Lymphocytes % (Manual) 18.0 % (13.4-35.0) 08/31/20 05:49 Monocytes % (Manual) 12.0 % (0.0-7.3) H 08/31/20 05:49 Metamyelocytes % 7.0 % 08/31/20 05:49 Nucleated RBC % Not Reportable 08/31/20 05:49 Seg Neutrophils # 7.5 K/mm3 (1.8-7.7) 08/26/20 13:02 Seg Neutrophils # Man 9.5 K/mm3 (1.8-7.7) H 08/31/20 05:49 Band Neutrophils # 0.0 K/mm3 08/31/20 05:49 Lymphocytes # (Manual) 2.7 K/mm3 (1.2-5.4) 08/31/20 05:49 Abs React Lymphs (Man) 0.0 K/mm3 08/31/20 05:49 Monocytes # (Manual) 1.8 K/mm3 (0.0-0.8) H 08/31/20 05:49 Eosinophils # (Manual) 0.0 K/mm3 (0.0-0.4) 08/31/20 05:49 Basophils # (Manual) 0.0 K/mm3 (0.0-0.1) 08/31/20 05:49 Metamyelocytes # 1.1 K/mm3 08/31/20 05:49 Myelocytes # 0.0 K/mm3 08/31/20 05:49 Promyelocytes # 0.0 K/mm3 08/31/20 05:49 Blast Cells # 0.0 K/mm3 08/31/20 05:49 WBC Morphology Not Reportable 08/31/20 05:49 Hypersegmented Neuts Not Reportable 08/31/20 05:49 Hyposegmented Neuts Not Reportable 08/31/20 05:49 Hypogranular Neuts Not Reportable 08/31/20 05:49 Smudge Cells Not Reportable 08/31/20 05:49 Toxic Granulation Not Reportable 08/31/20 05:49 Toxic Vacuolation Not Reportable 08/31/20 05:49 Dohle Bodies Not Reportable 08/31/20 05:49 Pelger-Huet Anomaly Not Reportable 08/31/20 05:49 Jesse Rods Not Reportable 08/31/20 05:49 Platelet Estimate Consistent w auto 08/31/20 05:49 Clumped Platelets Not Reportable 08/31/20 05:49 Plt Clumps, EDTA Not Reportable 08/31/20 05:49 Large Platelets Not Reportable 08/31/20 05:49 Giant Platelets Not Reportable 08/31/20 05:49 Platelet Satelliting Not Reportable 08/31/20 05:49 Plt Morphology Comment Not Reportable 08/31/20 05:49 RBC Morphology Normal 08/31/20 05:49 Dimorphic RBCs Not Reportable 08/31/20 05:49 Polychromasia Not Reportable 08/31/20 05:49 Hypochromasia Not Reportable 08/31/20 05:49 Poikilocytosis Not Reportable 08/31/20 05:49 Anisocytosis Not Reportable 08/31/20 05:49 Microcytosis Not Reportable 08/31/20 05:49 Macrocytosis Not Reportable 08/31/20 05:49 Spherocytes Not Reportable 08/31/20 05:49 Pappenheimer Bodies Not Reportable 08/31/20 05:49 Sickle Cells Not Reportable 08/31/20 05:49 Target Cells Not Reportable 08/31/20 05:49 Tear Drop Cells Not Reportable 08/31/20 05:49 Ovalocytes Not Reportable 08/31/20 05:49 Helmet Cells Not Reportable 08/31/20 05:49 [place] Bodies Not Reportable 08/31/20 05:49 [place] Rings Not Reportable 08/31/20 05:49 [place] Cells Not Reportable 08/31/20 05:49 Bite Cells Not Reportable 08/31/20 05:49 Crenated Cell Not Reportable 08/31/20 05:49 Elliptocytes Not Reportable 08/31/20 05:49 Acanthocytes (Spur) Not Reportable 08/31/20 05:49 Rouleaux Not Reportable 08/31/20 05:49 Hemoglobin C Crystals Not Reportable 08/31/20 05:49 Schistocytes Not Reportable 08/31/20 05:49 Malaria parasites Not Reportable 08/31/20 05:49 Tomi Bodies Not Reportable 08/31/20 05:49 Hem Pathologist Commnt No 08/31/20 05:49 D-Dimer 493.28 ng/mlDDU (0-234) H 08/26/20 18:21 Sodium 140 mmol/L (137-145) 08/31/20 05:49 Potassium 3.5 mmol/L (3.6-5.0) L 08/31/20 05:49 Chloride 98.0 mmol/L (98-107) 08/31/20 05:49 Carbon Dioxide 31 mmol/L (22-30) H 08/31/20 05:49 Anion Gap 15 mmol/L 08/31/20 05:49 BUN 33 mg/dL (9-20) H 08/31/20 05:49 Creatinine 1.1 mg/dL (0.8-1.3) 08/31/20 05:49 Estimated GFR > 60 ml/min 08/31/20 05:49 BUN/Creatinine Ratio 30 % 08/31/20 05:49 Glucose 80 mg/dL (75-100) 08/31/20 05:49 Lactic Acid 1.30 mmol/L (0.7-2.0) 08/27/20 00:44 Calcium 8.8 mg/dL (8.4-10.2) 08/31/20 05:49 Ferritin 112.6 ng/mL (30.0-300.0) 08/26/20 18:21 Total Bilirubin 0.60 mg/dL (0.1-1.2) 08/31/20 05:49 AST 42 units/L (5-40) H 08/31/20 05:49 ALT 59 units/L (7-56) H 08/31/20 05:49 Alkaline Phosphatase 105 units/L (35-129) 08/31/20 05:49 Lactate Dehydrogenase 282 units/L (91-180) H 08/26/20 18:21 C-Reactive Protein 1.50 mg/dL (0.00-1.30) H 08/26/20 18:21 NT-Pro-B Natriuret Pep 792.9 pg/mL (0-900) 08/30/20 08:40 Total Protein 7.3 g/dL (6.3-8.2) 08/31/20 05:49 Albumin 3.5 g/dL (3.9-5) L 08/31/20 05:49 Albumin/Globulin Ratio 0.9 % 08/31/20 05:49 Procalcitonin 0.27 ng/mL (<0.15) 08/30/20 08:40 Nasal Screen MRSA (PCR) Negative (Negative) 08/27/20 Unknown Coronavirus (PCR) Negative (Negative) 08/26/20 Unknown Microbiology: Microbiology 08/26/20 18:21 Peripheral/Venous Blood Culture - Preliminary NO GROWTH AFTER 4 DAYS 08/26/20 18:30 Peripheral/Venous Blood Culture - Preliminary NO GROWTH AFTER 4 DAYS Merino/IV: Voiding Method Toilet Active Medications - Current Medications Current Medications: Generic Name Dose Route Start Last Admin Trade Name Freq PRN Reason Stop Dose Admin Acetaminophen 650 mg 08/26/20 18:30 Acetaminophen 325 Mg Tab PO Q4H PRN Pain MILD(1-3)/Fever >100.5/MARIA Albuterol 2.5 mg 08/26/20 18:30 Albuterol 2.5 Mg/3 Ml Nebu IH Q4HRT PRN Shortness Of Breath Ascorbic Acid 500 mg 08/26/20 22:00 08/30/20 22:36 Ascorbic Acid 500 Mg Tab PO 500 mg BID RISHI Administration Bisacodyl 10 mg 08/30/20 04:31 08/30/20 23:22 Bisacodyl 5 Mg Tab PO 10 mg QDAY PRN Administration Constipation Cholecalciferol 1,000 unit 08/27/20 10:00 08/30/20 10:12 Cholecalciferol (Vit D3) 1000 Unit (25 Mcg) Tab PO 1,000 unit QDAY RISHI Administration Famotidine 20 mg 08/26/20 22:00 08/30/20 22:36 Famotidine 20 Mg Tab PO 20 mg BID RISHI Administration Furosemide 20 mg 08/30/20 10:00 08/30/20 10:10 Furosemide 20 Mg Tab PO 20 mg QDAY RISHI Administration Heparin Sodium (Porcine) 5,000 unit 08/26/20 22:00 08/30/20 22:36 Heparin 5,000 Unit/1 Ml Vial SUB-Q 5,000 unit Q12HR RISHI Administration Hydralazine HCl 10 mg 08/26/20 19:11 08/29/20 07:00 Hydralazine 20 Mg/1 Ml Inj IV 10 mg Q8HR PRN Administration Hypertension Hydralazine HCl 50 mg 08/28/20 14:00 08/31/20 05:35 Hydralazine 25 Mg Tab PO 50 mg Q8HR RISHI Administration Ceftriaxone Sodium 2 gm in 100 mls @ 200 mls/hr 08/27/20 10:00 08/30/20 10:07 Rocephin/Ns 2 Gm/100 Ml IV 200 mls/hr Q24HR RISHI Administration Protocol Losartan Potassium 100 mg 08/29/20 10:00 08/30/20 10:08 Losartan 50 Mg Tab PO 100 mg QDAY RISHI Administration Metoprolol Succinate 25 mg 08/30/20 18:00 08/30/20 18:12 Metoprolol Succinate Xl 25 Mg Tab PO 25 mg QDAY RISHI Administration Nifedipine 60 mg 08/29/20 10:00 08/30/20 22:36 Nifedipine Xl 60 Mg Tab PO 60 mg Q12HR RISHI Administration Ondansetron HCl 4 mg 08/26/20 18:30 Ondansetron 4 Mg/2 Ml Inj IV Q8H PRN Nausea And Vomiting Sodium Chloride 10 ml 08/26/20 22:00 08/30/20 22:37 Sodium Chloride 0.9% 10 Ml Flush Syringe IV 10 ml BID RISHI Administration Sodium Chloride 10 ml 08/26/20 18:30 Sodium Chloride 0.9% 10 Ml Flush Syringe IV PRN PRN LINE FLUSH
--- NOTE | 2020-08-31 09:12 | Discharge Summary ---
Providers - Providers Date of Admission: 08/26/20 18:30 Date of discharge: 08/31/20 Attending physician: ADRIAN MARQUIS 08/30/20 12:30 Consult to Physician [CONS] Routine Comment: Consulting Provider: DOUGLAS PAEZ Physician Instructions: Reason For Exam: Arrhythmia Primary care physician: GROCERY CLERK CHECKING Hospitalization Condition: Stable Hospital course: 55 YO Male with Obesity, HTN, Medication Noncompliance presents to ED for evaluation. Patient reports "I cannot breathe. Patient states that he has experienced shortness of breath over the past 3 days with progressively worsening symptoms over the same timeframe. Patient acknowledges malaise, fatigue, decreased exercise tolerance, as well as dry cough. Patient transported to [facility] via private vehicle for further care and evaluation of the aforementioned symptoms. The patient was seen and evaluated in the emergency department. All lab and imaging studies reviewed. Patient found to have a pulse oximetry of 88% on room air with exertion. Patient is unable to ambulate more than 10 feet without stopping due to shortness of breath. Patient is using accessory muscles to breathe. Patient symptoms consistent with acute hypoxemic respiratory failure. Patient underwent chest x-ray and was found to have bilateral pneumonia. Patient admitted to medical floor and initiated on pneumonia protocol as well as coronavirus protocol. Patient denies fever, chills, chest pain, palpitation, skin rash, recent ill contacts, or known exposure to COVID-19. No prior admission for review. No medication listed at time of admission for reconciliation. Hospital course 08/27. Patient is on methylprednisolone 40 every 8 and antibiotics for pneumonia. COVID-19 test pending. He notes occasional cough. Denies any fever. proBNP ordered. 08/28. COVID-19 test is negative. Taper steroids. His proBNP is elevated to more than 6000. Patient started on Lasix 40 mg twice daily. Echocardiogram performed but results still pending. Telemetry-sinus rhythm in the 80s -no conduction block. 08/29. Feels better. Repeat chest x-ray shows improving pulmonary opacities. Remains on IV antibiotics. Also on IV Lasix. Echocardiogram showed normal EF 55 to 60%. His blood pressure is limited so amlodipine has been switched to nifedipine. Continue hydralazine and losartan. Continue to monitor closely. Needs a walk test 08/30. Patient had a walk test and oxygen remained above 95%. Also had showed possible SVT. Cardiology consulted. He remains on IV antibiotics for pneumonia. 08/31. Cardiology recommendations appreciated. Patient started on metoprolol. Patient will discharge on antibiotics to complete 10-day course. He is medically stable for discharge today. Disposition: DC-01 TO HOME OR SELFCARE Final Discharge Diagnosis (Prints w/discharge instructions): Acute hypoxic respiratory failure. Community-acquired pneumonia. Acute on chronic diastolic CHF Time spent for discharge: 50 minutes Core Measure Documentation - Palliative Care Palliative Care/ Comfort Measures: Not Applicable - Core Measures Any of the following diagnoses?: none Exam - Physical Exam Narrative exam: VITAL SIGNS: Reviewed. GENERAL: Awake HEAD: No signs of head trauma. EYES: Pupils are equal. Extraocular motions intact. MOUTH: Oropharynx is normal. NECK: No adenopathy, no JVD. CHEST: Chest with diminished breath sounds bilaterally. No wheezes, rales, or rhonchi. CARDIAC: normal S1 and S2, without murmurs, gallops, or rubs. ABDOMEN: Soft, non tender and non distended. No rebound or guarding, and no masses palpated. Bowel Sounds normal. MUSCULOSKELETAL: No edema NEUROLOGIC EXAM: Alert and oriented x3. No focal neurologic deficits SKIN: No obvious lesions - Constitutional Vitals: Temp Pulse Resp BP Pulse Ox 98.4 F 86 18 127/93 93 08/31/20 04:08 08/31/20 04:08 08/31/20 08:32 08/31/20 04:08 08/31/20 04:08 Plan Diet: low fat, low cholesterol, low salt Additional Instructions: Continue medications as prescribed. Follow-up with cardiology in 1 to 2 weeks Follow up with: ИРИНА PEARSON MD [Primary Care Provider] - 3-5 Days DOUGLAS PAEZ MD [Staff Physician] - 7 Days Prescriptions: hydrALAZINE [Apresoline TAB] 50 mg PO Q8HR #180 tablet Cefpodoxime Proxetil 200 mg PO Q12H #10 tablet Losartan [Cozaar] 100 mg PO QDAY #60 tablet Metoprolol Xl [Metoprolol SUCCINATE ER TAB] 25 mg PO QDAY #30 tablet Famotidine [Pepcid] 20 mg PO BID #30 tablet NIFEdipine XL [Procardia Xl] 60 mg PO Q12HR #60 tablet
[2020-08-31] MEDS: LOSARTAN 50 MG TAB PO SCH (09:21)
[2020-08-31] MEDS: FAMOTIDINE 20 MG TAB PO SCH (09:21)
[2020-08-31] MEDS: CHOLECALCIFEROL (VIT D3) 1000 UNIT (25 mcg) TAB PO SCH (09:21)
[2020-08-31] MEDS: HEPARIN 5,000 UNIT/1 ML VIAL SUB-Q SCH (09:21)
[2020-08-31] MEDS: FUROSEMIDE 20 MG TAB PO SCH (09:21)
[2020-08-31] MEDS: cefTRIAXone/NS 2 GM/100 ML 2 GM/100 ML BAG IV SCH (09:22)
[2020-08-31] MEDS: ASCORBIC ACID 500 MG TAB PO SCH (09:22)
[2020-08-31] MEDS: METOPROLOL SUCCINATE XL 25 MG TAB PO SCH (09:22)
--- NOTE | 2020-08-31 10:20 | Electrocardiograph Report ---
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 : 1965 Requested By: ADRIAN MARQUIS Order Number: [id number] Reading MD: Pilo Carpenter Measurements Intervals [place] Rate: 81 P: -55 MA: 126 QRS: -80 QRSD: 84 T: 95 QT: 367 QTc: 425 Interpretive Statements Ectopic atrial rhythm Left anterior fascicular block Left ventricular hypertrophy Nonspecific T abnormalities, lateral leads Compared to ECG 08/26/2020 19:50:26 Ectopic atrial rhythm now present Left anterior fascicular block now present Left ventricular hypertrophy now present T-wave abnormality now present ST (T wave) deviation now present Electronically Signed On 08-31-2020 10:20:17 EDT by Pilo Carpenter
--- NOTE | 2020-08-31 10:32 | Consultation ---
History of Present Illness Consult date: 08/30/20 Requesting physician: ADRIAN MARQUIS Consult reason: arrhythmia History of present illness: This patient is a 55-year-old male with a significant history of hypertension, medical noncompliance. He is previously known to our practice. Patient presented to [facility] ER with complaint of shortness of breath progressively worsening over 3 days. Patient was found to be in acute respiratory failure SPO2 of 88% on room air and and hypertensive urgency. Patient was subsequently diagnosed with and treated for Covid negative bilateral pneumonia per primary team. Cardiology is consulted for episode of paroxysmal SVT. At time of interview patient denies chest pain or recent chest pain. He has no known cardiac history, no prior ME, no previous CVA, PTE, DVT, liver or kidney dysfunction. Patient is not followed by online retailer or primary care physician. His only known chronic condition is hypertension for which he is noncompliant with medications due to no insurance. BNP was noted to be elevated at time of admission. At time of interview, patient has decreased breath sounds on the right side and no bilateral extremity edema. Echocardiogram reviewed (08/27/2020): LVEF is 50 to 55%. Mild to moderate concentric LVF. Severe diastolic dysfunction is present (restrictive filling). Right ventricle is mildly hypokinetic. RVSP is 48 mmHg. No valvular abnormalities. Past History Past Medical History: hypertension, other (See HPI) Past Surgical History: No surgical history, Other (Reviewed) Social history: single. denies: smoking, alcohol abuse, prescription drug abuse Family history: hypertension Medications and Allergies Allergies Allergy/AdvReac Type Severity Reaction Status Date / Time No Known Allergies Allergy Verified 08/27/20 15:33 Home Medications Medication Instructions Recorded Confirmed Last Taken Type No Known Home Medications [No 08/26/20 08/26/20 Unknown History Reported Home Medications] Active Meds: Active Medications Acetaminophen (Acetaminophen 325 Mg Tab) 650 mg PO Q4H PRN PRN Reason: Pain MILD(1-3)/Fever >100.5/MARIA Albuterol (Albuterol 2.5 Mg/3 Ml Nebu) 2.5 mg IH Q4HRT PRN PRN Reason: Shortness Of Breath Ascorbic Acid (Ascorbic Acid 500 Mg Tab) 500 mg PO BID RISHI Last Admin: 08/30/20 10:12 Dose: 500 mg Documented by: Bisacodyl (Bisacodyl 5 Mg Tab) 10 mg PO QDAY PRN PRN Reason: Constipation Cholecalciferol (Cholecalciferol (Vit D3) 1000 Unit (25 Mcg) Tab) 1,000 unit PO QDAY ON LICENSE OF [facility] Last Admin: 08/30/20 10:12 Dose: 1,000 unit Documented by: Famotidine (Famotidine 20 Mg Tab) 20 mg PO BID ON LICENSE OF [facility] Last Admin: 08/30/20 10:11 Dose: 20 mg Documented by: Furosemide (Furosemide 20 Mg Tab) 20 mg PO QDAY ON LICENSE OF [facility] Last Admin: 08/30/20 10:10 Dose: 20 mg Documented by: Heparin Sodium (Porcine) (Heparin 5,000 Unit/1 Ml Vial) 5,000 unit SUB-Q Q12HR ON LICENSE OF [facility] Last Admin: 08/30/20 10:10 Dose: 5,000 unit Documented by: Hydralazine HCl (Hydralazine 20 Mg/1 Ml Inj) 10 mg IV Q8HR PRN PRN Reason: Hypertension Last Admin: 08/29/20 07:00 Dose: 10 mg Documented by: Hydralazine HCl (Hydralazine 25 Mg Tab) 50 mg PO Q8HR ON LICENSE OF [facility] Last Admin: 08/30/20 15:30 Dose: 50 mg Documented by: Ceftriaxone Sodium (Rocephin/Ns 2 Gm/100 Ml) 2 gm in 100 mls @ 200 mls/hr IV Q24HR ON LICENSE OF [facility]; Protocol Last Admin: 08/30/20 10:07 Dose: 200 mls/hr Documented by: Losartan Potassium (Losartan 50 Mg Tab) 100 mg PO QDAY ON LICENSE OF [facility] Last Admin: 08/30/20 10:08 Dose: 100 mg Documented by: Metoprolol Succinate (Metoprolol Succinate Xl 25 Mg Tab) 25 mg PO QDAY ON LICENSE OF [facility] Nifedipine (Nifedipine Xl 60 Mg Tab) 60 mg PO Q12HR ON LICENSE OF [facility] Last Admin: 08/30/20 10:11 Dose: 60 mg Documented by: Ondansetron HCl (Ondansetron 4 Mg/2 Ml Inj) 4 mg IV Q8H PRN PRN Reason: Nausea And Vomiting Sodium Chloride (Sodium Chloride 0.9% 10 Ml Flush Syringe) 10 ml IV BID ON LICENSE OF [facility] Last Admin: 08/30/20 10:11 Dose: 10 ml Documented by: Sodium Chloride (Sodium Chloride 0.9% 10 Ml Flush Syringe) 10 ml IV PRN PRN PRN Reason: LINE FLUSH Review of Systems Constitutional: no weight loss, no weight gain, no fever, no chills, no sweats, no night sweats Ears, nose, mouth and throat: no ear pain, no ear discharge, no decreased hearing, no nose pain, no nasal congestion, no nasal discharge Cardiovascular: shortness of breath, dyspnea on exertion, no chest pain, no orthopnea, no palpitations, no rapid/irregular heart beat, no edema, no syncope, no lightheadedness Respiratory: shortness of breath, dyspnea on exertion, no cough, no excessive sputum, no hemoptysis Gastrointestinal: no abdominal pain, no nausea, no vomiting, no diarrhea Genitourinary Male: no flank pain Musculoskeletal: no neck stiffness, no neck pain, no shooting arm pain, no arm numbness/tingling, no low back pain, no shooting leg pain Integumentary: no rash, no pruritis, no redness, no sores, no wounds Neurological: no head injury, no paralysis, no weakness, no parathesias, no numbness, no tingling, no seizures, no syncope Psychiatric: no anxiety Endocrine: no cold intolerance, no heat intolerance Hematologic/Lymphatic: no easy bruising, no easy bleeding Allergic/Immunologic: no urticaria Physical Examination Last Vital Signs Temp 97.6 F 08/30/20 15:57 Pulse 98 H 08/30/20 15:57 Resp 20 08/30/20 15:57 BP 152/97 08/30/20 15:57 Pulse Ox 91 08/30/20 15:57 General appearance: no acute distress HEENT: Positive: PERRL, Normocephaly, Mucus Membranes Moist Neck: Positive: neck supple, trachea midline Cardiac: Positive: Reg Rate and Rhythm, S1/S2 Lungs: Positive: Decreased Breath Sounds Neuro: Positive: Grossly Intact Abdomen: Positive: Unremarkable, Soft Skin: Negative: Rash, Wound Musculoskeletal: No Pain Extremities: Present: upper extr. pulses, lower extr. pulses. Absent: edema Results 08/30/20 08:40 08/30/20 08:40 Cardiac Enzymes 08/30/20 Range/Units 08:40 AST 26 (5-40) units/L CBC 08/30/20 Range/Units 08:40 WBC 22.3 H (4.5-11.0) K/mm3 RBC 5.58 H (3.65-5.03) M/mm3 Hgb 17.7 H (11.8-15.2) gm/dl Hct 52.6 H (35.5-45.6) % Plt Count 443 H (140-440) K/mm3 Comprehensive Metabolic Panel 08/30/20 Range/Units 08:40 Sodium 138 (137-145) mmol/L Potassium 3.8 (3.6-5.0) mmol/L Chloride 96.2 L (98-107) mmol/L Carbon Dioxide 29 (22-30) mmol/L BUN 35 H (9-20) mg/dL Creatinine 1.2 (0.8-1.3) mg/dL Glucose 140 H (75-100) mg/dL Calcium 8.9 (8.4-10.2) mg/dL AST 26 (5-40) units/L ALT 45 (7-56) units/L Alkaline Phosphatase 113 (35-129) units/L Total Protein 7.3 (6.3-8.2) g/dL Albumin 3.3 L (3.9-5) g/dL - Imaging and Cardiology Echo: report reviewed EKG: report reviewed, image reviewed EKG interpretations - Telemetry EKG Rhythm: Sinus Rhythm - EKG Sinus rhythms and dysrhythmias: sinus rhythm Assessment and Plan Cardiac arrhythmia * Cardiology is consulted for episode of SVT * Telemetry reviewed: Sinus rhythm 87. Episode of paroxysmal SVT lasting less than 1 minute noted this morning. Continue to monitor on telemetry. * Optimize rate control: Initiate metoprolol XL 25 mg daily Cardiomyopathy * BNP is noted to be elevated on admission. BNP suspected to be elevated as a result of acute diastolic dysfunction. * Echocardiogram reviewed (08/27/2020): LVEF is 50 to 55%. Mild to moderate concentric LVF. Severe diastolic dysfunction is present (restrictive filling) . Right ventricle is mildly hypokinetic. RVSP is 48 mmHg. No valvular abnormalities. * Patient appears to be near euvolemia. Recommend discontinuation of diuretics at this point. Acute respiratory failure in setting of bilateral Covid negative pneumonia * Patient currently requiring O2 support via nasal cannula. Continue to wean as tolerated Hypertensive urgency * Patient is currently normotensive. Agree with current regimen of nifedipine XL 60 mg daily, hydralazine 50 mg 3 times daily. DVT prophylaxis * Heparin SQ Patient is currently in stable cardiac status. Initiate beta-sylvia and continue telemetry. Will follow on as-needed basis. Patient should follow-up in our office with Dr Carpenter within 1 to 2 weeks of discharge. #[id number] This patient was seen in conjunction with Dr Carpenter who agrees with this assessment and plan of care - Patient Problems (1) Acute hypoxemic respiratory failure Current Visit: Yes Status: Acute (2) Bilateral pneumonia Current Visit: Yes Status: Acute (3) Paroxysmal SVT (supraventricular tachycardia) Current Visit: Yes Status: Acute (4) Hypertensive urgency Current Visit: Yes Status: Resolved (5) Cardiomyopathy Current Visit: Yes Status: Acute (6) DVT prophylaxis Current Visit: Yes Status: Acute (7) Suspected COVID-19 virus infection Current Visit: Yes Status: Resolved (8) Hypertension Current Visit: Yes Status: Chronic (9) Noncompliance with medication regimen Current Visit: Yes Status: Chronic
--- NOTE | 2020-08-31 10:40 | Progress Note ---
Assessment and Plan Cardiac arrhythmia * Cardiology is consulted for episode of SVT * Telemetry reviewed: Sinus rhythm 92 with frequent PVCs. No events. * Continue current rate control medication of metoprolol XL 25 mg daily Cardiomyopathy * BNP is noted to be elevated on admission. BNP suspected to be elevated as a result of acute diastolic dysfunction. * Echocardiogram reviewed (08/27/2020): LVEF is 50 to 55%. Mild to moderate concentric LVF. Severe diastolic dysfunction is present (restrictive filling). Right ventricle is mildly hypokinetic. RVSP is 48 mmHg. No valvular abnormalities. * Patient appears to be near euvolemia. Acute respiratory failure in setting of bilateral Covid negative pneumonia * Patient currently requiring O2 support via nasal cannula. Continue to wean as tolerated Hypertensive urgency * Patient is currently normotensive. Agree with current regimen of nifedipine XL 60 mg daily, hydralazine 50 mg 3 times daily. Tobacco use * Tobacco cessation encouraged DVT prophylaxis * Heparin SQ Patient is currently in stable cardiac status. Patient should follow-up with Dr. Carpenter in our [place] office on 09/17/2020 at 10:15 AM. #[phone] This patient was seen in conjunction with Dr Carpenter who agrees with this assessment and plan of care - Patient Problems (1) Acute hypoxemic respiratory failure Current Visit: Yes Status: Acute (2) Bilateral pneumonia Current Visit: Yes Status: Acute (3) Paroxysmal SVT (supraventricular tachycardia) Current Visit: Yes Status: Acute (4) Hypertensive urgency Current Visit: Yes Status: Resolved (5) Cardiomyopathy Current Visit: Yes Status: Acute (6) DVT prophylaxis Current Visit: Yes Status: Acute (7) Suspected COVID-19 virus infection Current Visit: Yes Status: Resolved (8) Hypertension Current Visit: Yes Status: Chronic (9) Noncompliance with medication regimen Current Visit: Yes Status: Chronic Subjective Date of service: 08/31/20 Principal diagnosis: PNA Interval history: Patient resting comfortably in bed. No shortness of breath or chest pain overnight. Telemetry reviewed: Sinus rhythm 92 with frequent PVCs. No events. Objective Last Vital Signs Temp 98.4 F 08/31/20 04:08 Pulse 86 08/31/20 09:21 Resp 18 08/31/20 08:32 BP 146/66 08/31/20 09:21 Pulse Ox 95 08/31/20 09:29 - Physical Examination General: Appears Well HEENT: Positive: PERRL, Normocephaly, Mucus Membranes Moist Neck: Positive: neck supple, trachea midline Cardiac: Positive: Reg Rate and Rhythm, S1/S2 Lungs: Positive: Normal Exam Neuro: Positive: Grossly Intact Abdomen: Positive: Unremarkable, Soft Skin: Negative: Rash, Wound Musculoskeletal: No Pain Extremities: Present: upper extr. pulses, lower extr. pulses. Absent: edema - Labs and Meds Cardiac Enzymes 08/31/20 Range/Units 05:49 AST 42 H (5-40) units/L CBC 08/31/20 Range/Units 05:49 WBC 15.0 H (4.5-11.0) K/mm3 RBC 5.82 H (3.65-5.03) M/mm3 Hgb 17.7 H (11.8-15.2) gm/dl Hct 54.4 H (35.5-45.6) % Plt Count 448 H (140-440) K/mm3 Comprehensive Metabolic Panel 08/31/20 Range/Units 05:49 Sodium 140 (137-145) mmol/L Potassium 3.5 L (3.6-5.0) mmol/L Chloride 98.0 (98-107) mmol/L Carbon Dioxide 31 H (22-30) mmol/L BUN 33 H (9-20) mg/dL Creatinine 1.1 (0.8-1.3) mg/dL Glucose 80 (75-100) mg/dL Calcium 8.8 (8.4-10.2) mg/dL AST 42 H (5-40) units/L ALT 59 H (7-56) units/L Alkaline Phosphatase 105 (35-129) units/L Total Protein 7.3 (6.3-8.2) g/dL Albumin 3.5 L (3.9-5) g/dL - Imaging and Cardiology EKG: report reviewed, image reviewed Echo: report reviewed - Telemetry EKG Rhythm: Sinus Rhythm - EKG Sinus rhythms and dysrhythmias: sinus rhythm
[2020-08-31] MEDS: NIFEdipine XL 60 MG TAB PO SCH (10:46)
[2020-08-31 13:32] VITALS: BP 141/100
--- NOTE | 2020-08-31 17:24 | Electrocardiograph Report ---
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
== END 2020-08-31 17:05 | disposition home or self-care (01) | DRG 291 ==
LOC: ED 12:03 → 3A 18:30
PROVIDERS: ADMIT Internal Medicine; ATTEND Internal Medicine
DX: I11.0 Hypertensive heart disease with heart failure (principal); J96.01 Acute respiratory failure with hypoxia; J18.9 Pneumonia, unspecified organism; E66.2 Morbid (severe) obesity with alveolar hypoventilation; I47.1 Supraventricular tachycardia; I50.33 Acute on chronic diastolic (congestive) heart failure; I42.9 Cardiomyopathy, unspecified; I16.0 Hypertensive urgency; Z20.822 Contact with and (suspected) exposure to COVID-19; F17.200 Nicotine dependence, unspecified, uncomplicated; I49.9 Cardiac arrhythmia, unspecified; Z82.49 Family history of ischemic heart disease and other diseases of the circulatory system; Z91.14 Patient's other noncompliance with medication regimen; Z68.30 Body mass index [BMI] 30.0-30.9, adult
CPT/HCPCS: 36415; 71045; 71046; 80053; 82140; 82728; 82947; 83615; 83880; 84145; 85007; 85025; 85379; 86140; 87040; 87641; 93005; 93306; 96365; 99406; G0378; J0360; J0456; J0696; J1100; J1170; J1644; J1940; J2920; J7040; U0003

== ENCOUNTER 2020-09-11 00:29 | Emergency (ER) | payer SELFPAY | END 2020-09-11 00:34 | disposition left against medical advice (07) | LOC: ED 00:29 ==

== ENCOUNTER 2020-09-11 09:05 | Emergency (ER) | payer SELFPAY ==
--- NOTE | 2020-09-11 13:00 | Emergency Department Report ---
ED Medical Clearance HPI - General Chief complaint: Medical Clearance Stated complaint: RELAPSED Time Seen by Provider: 09/11/20 12:54 Source: patient Mode of arrival: Ambulatory - History of Present Illness Initial comments: 55-year-old male with a past medical history of obesity and hypertension he was recently discharged from this hospital on 08/31/2020 patient states he lost all of his prescription and was not able to refill any of them. He is currently in no distress he is currently with no medical complaints patient only requesting refill of his prescriptions that he was discharged home with on 518. Home medications: Previous Rx's Medication Instructions Recorded Last Taken Type Cefpodoxime Proxetil 200 mg PO Q12H #10 tablet 09/11/20 Unknown Rx Famotidine [Pepcid] 20 mg PO BID #30 tablet 09/11/20 Unknown Rx Losartan [Cozaar] 100 mg PO QDAY #60 tablet 09/11/20 Unknown Rx Metoprolol Xl [Metoprolol 25 mg PO QDAY #30 tablet 09/11/20 Unknown Rx SUCCINATE ER TAB] NIFEdipine XL [Procardia Xl] 60 mg PO Q12HR #60 tablet 09/11/20 Unknown Rx hydrALAZINE [Apresoline TAB] 50 mg PO Q8HR #180 tablet 09/11/20 Unknown Rx Allergies/Adverse reactions: Allergies Allergy/AdvReac Type Severity Reaction Status Date / Time No Known Allergies Allergy Verified 09/11/20 10:02 ED Review of Systems ROS: Stated complaint: RELAPSED Other details as noted in HPI Comment: All other systems reviewed and negative ED Past Medical Hx - Past Medical History Hx Hypertension: Yes Hx Congestive Heart Failure: No Hx Sickle Cell Disease: No Hx Tuberculosis: No Hx HIV: No - Surgical History Additional Surgical History: plate in L ankle - Social History Smoking Status: Current Every Day Smoker - Medications Home Medications: Home Medications Medication Instructions Recorded Confirmed Last Taken Type Cefpodoxime Proxetil 200 mg PO Q12H #10 tablet 09/11/20 Unknown Rx Famotidine [Pepcid] 20 mg PO BID #30 tablet 09/11/20 Unknown Rx Losartan [Cozaar] 100 mg PO QDAY #60 tablet 09/11/20 Unknown Rx Metoprolol Xl [Metoprolol 25 mg PO QDAY #30 tablet 09/11/20 Unknown Rx SUCCINATE ER TAB] NIFEdipine XL [Procardia Xl] 60 mg PO Q12HR #60 tablet 09/11/20 Unknown Rx hydrALAZINE [Apresoline TAB] 50 mg PO Q8HR #180 tablet 09/11/20 Unknown Rx ED Physical Exam - General Limitations: No Limitations General appearance: alert, in no apparent distress - Eye Eye exam: Present: normal appearance - ENT ENT exam: Present: normal exam - Respiratory Respiratory exam: Present: normal lung sounds bilaterally - Cardiovascular Cardiovascular Exam: Present: regular rate, normal heart sounds - Extremities Exam Extremities exam: Present: normal inspection - Neurological Exam Neurological exam: Present: alert, oriented X3 - Psychiatric Psychiatric exam: Present: normal affect - Skin Skin exam: Present: warm, dry, intact ED Course Vital Signs 09/11/20 10:03 Temperature 98.4 F Pulse Rate 54 L Respiratory 16 Rate Blood Pressure 171/102 [Left] O2 Sat by Pulse 98 Oximetry - Reevaluation(s) Reevaluation #1: 09/11/20 13:07 Patient with no complaints ED Medical Decision Making - Medical Decision Making 55-year-old male with known history of hypertension recently discharged from this facility on 08/31/21. He lost all his prescriptions I was able to verify the discharge medications by reviewing the discharge summary medication refill given to patient. He currently has no medical complaints - Differential Diagnosis Medication refill ED Disposition Clinical Impression: Encounter for medication refill, Paroxysmal SVT (supraventricular tachycardia) Hypertension Qualifiers: Hypertension type: essential hypertension Qualified Code(s): I10 - Essential (primary) hypertension Disposition: DC-01 TO HOME OR SELFCARE Is pt being admited?: No Does the pt Need Aspirin: No Condition: Stable Instructions: Hypertension (ED) Prescriptions: hydrALAZINE [Apresoline TAB] 50 mg PO Q8HR #180 tablet Cefpodoxime Proxetil 200 mg PO Q12H #10 tablet Losartan [Cozaar] 100 mg PO QDAY #60 tablet Metoprolol Xl [Metoprolol SUCCINATE ER TAB] 25 mg PO QDAY #30 tablet Famotidine [Pepcid] 20 mg PO BID #30 tablet NIFEdipine XL [Procardia Xl] 60 mg PO Q12HR #60 tablet Referrals: ИРИНА PEARSON MD [Primary Care Provider] - 3-5 Days ELEANOR MEAD MD [Staff Physician] - 3-5 Days Time of Disposition: 13:09
== END 2020-09-11 13:18 | disposition home or self-care (01) ==
LOC: ED 09:05
CPT/HCPCS: 99281

== ENCOUNTER 2021-04-12 23:19 | Emergency (ER) | payer SELFPAY ==
[2021-04-12] MEDS ORDERED: cloNIDine 0.2 MG TAB PO ONE (23:41)
[2021-04-12] MEDS ORDERED: MORPHINE 4 MG/1 ML INJ IV ONE (23:42)
--- NOTE | 2021-04-12 23:42 | Emergency Department Report ---
ED Chest Pain HPI - General Chief Complaint: Chest Pain Stated Complaint: Chest pain Time Seen by Provider: 04/12/21 23:41 Source: patient, EMS Mode of arrival: Stretcher Limitations: No Limitations - History of Present Illness Initial Comments: Patient is a 56-year-old male who presents with chest pain that is been going on for the last 2 days. He states he has had chest pain like this before it is an 8 out of 10 is a pressure type of pain with some burning. Patient denies having any nausea or vomiting he was just resting when this occurred he denies having any trauma to the area it does not radiate. Nothing makes it better nothing makes it worse. Severity scale (0 -10): 8 - Related Data Previous Rx's Medication Instructions Recorded Last Taken Type Cefpodoxime Proxetil 200 mg PO Q12H #10 tablet 09/11/20 Unknown Rx Famotidine [Pepcid] 20 mg PO BID #30 tablet 09/11/20 Unknown Rx Losartan [Cozaar] 100 mg PO QDAY #60 tablet 09/11/20 Unknown Rx Metoprolol Xl [Metoprolol 25 mg PO QDAY #30 tablet 09/11/20 Unknown Rx SUCCINATE ER TAB] NIFEdipine XL [Procardia Xl] 60 mg PO Q12HR #60 tablet 09/11/20 Unknown Rx hydrALAZINE [Apresoline TAB] 50 mg PO Q8HR #180 tablet 09/11/20 Unknown Rx Allergies Allergy/AdvReac Type Severity Reaction Status Date / Time No Known Allergies Allergy Verified 09/11/20 10:02 Heart Score - HEART Score History: Slightly suspicious EKG: Normal Age: 45-65 Risk factors: > 3 risk factors or hx of atherosclerotic disease Troponin: < normal limit HEART Score: 3 - EKG Read Time Time EKG Completed: 23:31 EKG Read Time: 23:35 ED Review of Systems ROS: Stated complaint: Chest pain Other details as noted in HPI Constitutional: denies: chills, fever Eyes: denies: eye pain, eye discharge, vision change ENT: denies: ear pain, throat pain Respiratory: denies: cough, shortness of breath, wheezing Cardiovascular: chest pain. denies: palpitations Endocrine: no symptoms reported Gastrointestinal: denies: abdominal pain, nausea, diarrhea Genitourinary: denies: urgency, dysuria Musculoskeletal: denies: back pain, joint swelling, arthralgia Skin: denies: rash, lesions Neurological: denies: headache, weakness, paresthesias Psychiatric: denies: anxiety, depression Hematological/Lymphatic: denies: easy bleeding, easy bruising ED Past Medical Hx - Past Medical History Hx Hypertension: Yes Hx Congestive Heart Failure: No Hx Sickle Cell Disease: No Hx Tuberculosis: No Hx HIV: No - Surgical History Additional Surgical History: plate in L ankle - Social History Smoking Status: Current Every Day Smoker - Medications Home Medications: Home Medications Medication Instructions Recorded Confirmed Last Taken Type Cefpodoxime Proxetil 200 mg PO Q12H #10 tablet 09/11/20 Unknown Rx Famotidine [Pepcid] 20 mg PO BID #30 tablet 09/11/20 Unknown Rx Losartan [Cozaar] 100 mg PO QDAY #60 tablet 09/11/20 Unknown Rx Metoprolol Xl [Metoprolol 25 mg PO QDAY #30 tablet 09/11/20 Unknown Rx SUCCINATE ER TAB] NIFEdipine XL [Procardia Xl] 60 mg PO Q12HR #60 tablet 09/11/20 Unknown Rx hydrALAZINE [Apresoline TAB] 50 mg PO Q8HR #180 tablet 09/11/20 Unknown Rx ED Physical Exam - General Limitations: No Limitations General appearance: alert, in no apparent distress - Head Head exam: Present: atraumatic, normocephalic - Eye Eye exam: Present: normal appearance - ENT ENT exam: Present: mucous membranes moist - Neck Neck exam: Present: normal inspection - Respiratory Respiratory exam: Present: normal lung sounds bilaterally. Absent: respiratory distress - Cardiovascular Cardiovascular Exam: Present: regular rate, normal rhythm. Absent: systolic murmur, diastolic murmur, rubs, gallop - GI/Abdominal GI/Abdominal exam: Present: soft, normal bowel sounds - Rectal Rectal exam: Present: deferred - Extremities Exam Extremities exam: Present: normal inspection - Back Exam Back exam: Present: normal inspection - Neurological Exam Neurological exam: Present: alert, oriented X3 - Psychiatric Psychiatric exam: Present: normal affect, normal mood - Skin Skin exam: Present: warm, dry, intact, normal color. Absent: rash ED Course Vital Signs 04/12/21 04/12/21 04/13/21 23:25 23:49 00:03 Temperature 98.4 F 98.6 F Pulse Rate 88 83 92 H Respiratory 20 27 H 21 Rate Blood Pressure 200/145 200/145 Blood Pressure 211/155 [Right] O2 Sat by Pulse 97 97 Oximetry 04/13/21 04/13/21 04/13/21 00:18 00:30 01:00 Temperature Pulse Rate 87 81 86 Respiratory 29 H 17 Rate Blood Pressure 197/138 202/141 201/139 Blood Pressure [Right] O2 Sat by Pulse 97 97 Oximetry 04/13/21 04/13/21 04/13/21 01:30 02:00 02:05 Temperature Pulse Rate 79 81 84 Respiratory 26 H 28 H Rate Blood Pressure 193/139 182/128 182/128 Blood Pressure [Right] O2 Sat by Pulse 98 96 Oximetry 04/13/21 04/13/21 04/13/21 02:30 03:00 03:30 Temperature Pulse Rate 82 69 63 Respiratory 23 22 34 H Rate Blood Pressure 189/124 179/131 180/123 Blood Pressure [Right] O2 Sat by Pulse 93 95 Oximetry 04/13/21 04/13/21 04/13/21 04:00 04:30 05:00 Temperature Pulse Rate 66 63 64 Respiratory 33 H 23 23 Rate Blood Pressure 175/97 167/106 169/114 Blood Pressure [Right] O2 Sat by Pulse 93 95 92 Oximetry ROSA ELENA score - Rosa Elena Score Age > 65: (0) No Aspirin use within the Past 7 Days: (1) Yes 3 or more CAD Risk Factors: (0) No 2 or more Angina events in past 24 hrs: (0) No Known CAD with more than 50% Stenosis: (0) No Elevated Cardiac Markers: (0) No ST Deviation Greater than 0.5mm: (0) No ROSA ELENA Score: 1 ED Medical Decision Making - Lab Data Result diagrams: 04/12/21 23:46 04/12/21 23:46 Lab Results 04/12/21 04/12/21 Range/Units 23:46 23:46 WBC 11.5 H (4.5-11.0) K/mm3 RBC 4.66 (3.65-5.03) M/mm3 Hgb 14.3 (11.8-15.2) gm/dl Hct 43.2 (35.5-45.6) % MCV 93 (84-94) fl MCH 31 (28-32) pg MCHC 33 (32-34) % RDW 13.5 (13.2-15.2) % Plt Count 286 (140-440) K/mm3 Lymph % (Auto) 19.4 (13.4-35.0) % Major % (Auto) 8.4 H (0.0-7.3) % Eos % (Auto) 1.0 (0.0-4.3) % Baso % (Auto) 1.1 (0.0-1.8) % Lymph # (Auto) 2.2 (1.2-5.4) K/mm3 Major # (Auto) 1.0 H (0.0-0.8) K/mm3 Eos # (Auto) 0.1 (0.0-0.4) K/mm3 Baso # (Auto) 0.1 (0.0-0.1) K/mm3 Seg Neutrophils % 70.1 H (40.0-70.0) % Seg Neutrophils # 8.1 H (1.8-7.7) K/mm3 Sodium 142 (137-145) mmol/L Potassium 3.7 (3.6-5.0) mmol/L Chloride 103.3 (98-107) mmol/L Carbon Dioxide 24 (22-30) mmol/L Anion Gap 18 mmol/L BUN 27 H (9-20) mg/dL Creatinine 1.8 H (0.8-1.3) mg/dL Estimated GFR 39 ml/min BUN/Creatinine Ratio 15 % Glucose 113 H (75-100) mg/dL Calcium 9.3 (8.4-10.2) mg/dL Total Bilirubin 0.50 (0.1-1.2) mg/dL AST 37 (5-40) units/L ALT 51 (7-56) units/L Alkaline Phosphatase 107 (35-129) units/L Troponin T 0.013 (0.00-0.029) ng/mL Total Protein 7.4 (6.3-8.2) g/dL Albumin 3.7 L (3.9-5) g/dL Albumin/Globulin Ratio 1.0 % - EKG Data -: EKG Interpreted by Me - EKG Data 04/13/21 01:38 EKG time 23:[address] segment elevation no t wave inversion - Radiology Data Radiology results: report reviewed, image reviewed cxr: shows no acute cardio pulmonary disease - Medical Decision Making Cdx: Nstemi ddx: GERD, arrythmia I will get two troponins, cbc, bmp, cxr and IV pain medication. Critical care attestation.: If time is entered above; I have spent that time in minutes in the direct care of this critically ill patient, excluding procedure time. ED Disposition Clinical Impression: YE (acute kidney injury), Hypertensive urgency Chest pain Qualifiers: Chest pain type: unspecified Qualified Code(s): R07.9 - Chest pain, unspecified Disposition: 01 HOME / SELF CARE / HOMELESS Is pt being admited?: No Does the pt Need Aspirin: No Condition: Stable Instructions: Nonspecific Chest Pain, Adult, Hypertension, Adult Referrals: JONI NASH MD [Staff Physician] - 3-5 Days
[2021-04-13 00:07] LABS: Basophils # (Auto) 0.1 K/mm3 (0.0-0.1); Basophils % (Auto) 1.1 % (0.0-1.8); Eosinophils # (Auto) 0.1 K/mm3 (0.0-0.4); Hematocrit 43.2 % (35.5-45.6); Hemoglobin 14.3 gm/dl (11.8-15.2); Lymphocytes # (Auto) 2.2 K/mm3 (1.2-5.4); Lymphocytes % (Auto) 19.4 % (13.4-35.0); Mean Corpuscular HGB Conc 33 % (32-34); Mean Corpuscular Volume 93 fl (84-94); Monocytes % (Auto) 8.4 % (0.0-7.3); Platelet Count 286 K/mm3 (140-440); Red Blood Count 4.66 M/mm3 (3.65-5.03); Red Cell Distribution Width 13.5 % (13.2-15.2)
--- NOTE | 2021-04-13 00:20 | XRay Report ---
CHEST 2 VIEWS INDICATION / CLINICAL INFORMATION: Chest Pain. COMPARISON: 08/29/2020 FINDINGS: SUPPORT DEVICES: None. HEART / MEDIASTINUM: No significant abnormality. LUNGS / PLEURA: No significant pulmonary or pleural abnormality. No pneumothorax. ADDITIONAL FINDINGS: No significant additional findings. IMPRESSION: 1. No acute findings. Signer Name: Emigdio Coy DO Signed: 04/13/2021 12:16 AM Workstation Name: [id number]
[2021-04-13 00:27] LABS: Albumin 3.7 g/dL (3.9-5); Calcium 9.3 mg/dL (8.4-10.2)
[2021-04-13] MEDS ORDERED: METOPROLOL TARTRATE 50 MG TAB PO ONE (01:41)
[2021-04-13 05:01] VITALS: BP 169/114
--- NOTE | 2021-04-13 11:06 | Electrocardiograph Report ---
[facility] Test Date: 2021-04-12 Test Time: 23:31:43 Pat Name: LORENZA ZACARIAS Department: Room: Gender: M [employer]: WALE : 1965 Requested By: RIKY LLAMAS Order Number: [id number] Reading MD: Lang Rizvi Measurements Intervals Wrens Rate: 86 P: 18 WY: 163 QRS: -42 QRSD: 91 T: 55 QT: 401 QTc: 479 Interpretive Statements Sinus rhythm Probable left atrial enlargement Left ventricular hypertrophy Compared to ECG 08/30/2020 06:39:53 Ectopic atrial rhythm no longer present Left anterior fascicular block no longer present T-wave abnormality no longer present Electronically Signed On 04-13-2021 11:06:08 EST by Lang Rizvi
== END 2021-04-13 05:56 | disposition home or self-care (01) ==
LOC: ED 23:19
DX: R07.9 Chest pain, unspecified (principal); I10 Essential (primary) hypertension; F17.200 Nicotine dependence, unspecified, uncomplicated; N17.9 Acute kidney failure, unspecified
CPT/HCPCS: 36415; 71046; 80053; 84484; 85025; 93005; 99284; J2270

== ENCOUNTER 2021-05-04 05:08 | Inpatient (IN) | payer SELFPAY ==
--- NOTE | 2021-05-04 07:04 | XRay Report ---
CHEST 2 VIEWS INDICATION / CLINICAL INFORMATION: chest pain. COMPARISON: 04/13/21 FINDINGS: SUPPORT DEVICES: None. HEART / MEDIASTINUM: Heart is upper normal size and stable. LUNGS / PLEURA: No significant pulmonary or pleural abnormality. No pneumothorax. ADDITIONAL FINDINGS: No significant additional findings. IMPRESSION: 1. No acute findings. No change. Signer Name: Meir Fox MD Signed: 05/04/2021 6:59 AM Workstation Name: [id number]
[2021-05-04] MEDS ORDERED: hydrALAZINE 25 MG TAB PO ONE (07:09)
[2021-05-04] MEDS ORDERED: ASPIRIN 325 MG TAB PO ONE (07:10)
[2021-05-04] MEDS ORDERED: IPRATROPIUM/ALBUTEROL SULFATE 3 ML AMPUL.NEB IH ONE (07:12)
--- NOTE | 2021-05-04 07:12 | Emergency Department Report ---
ED Chest Pain HPI - General Chief Complaint: Chest Pain Stated Complaint: Chest pain Time Seen by Provider: 05/04/21 06:50 Source: EMS Mode of arrival: Stretcher Limitations: No Limitations - History of Present Illness Initial Comments: 56-year-old male with a past medical history of smoking, A. fib, hypertension, and chronic medication noncompliance and homelessness presents to the hospital with complaints of dyspnea exertion x1 month progressively worsening for last 3 days. Patient also having intermittent left-sided chest tightness with activity . Patient complains of a persistent cough without fever. He is unvaccinated for COVID. Patient was admitted here August 2020 for bilateral pneumonia with hypoxia and was COVID-negative at that time. Patient was seen in the ED April 12 for chest pain and subsequently discharged with a refill his medications. Patient never filled the prescriptions and states he has not taking any of his meds for the past year because he cannot afford medications. He denies previous history of stress test. States his father had heart problems Severity scale (0 -10): 6 - Related Data Previous Rx's Medication Instructions Recorded Last Taken Type Cefpodoxime Proxetil 200 mg PO Q12H #10 tablet 09/11/20 Unknown Rx Famotidine [Pepcid] 20 mg PO BID #30 tablet 04/13/21 Unknown Rx Losartan [Cozaar] 100 mg PO QDAY #60 tablet 04/13/21 Unknown Rx Metoprolol Xl [Metoprolol 25 mg PO QDAY #30 tablet 04/13/21 Unknown Rx SUCCINATE ER TAB] NIFEdipine XL [Procardia Xl] 60 mg PO Q12HR #60 tablet 04/13/21 Unknown Rx hydrALAZINE [Apresoline TAB] 50 mg PO Q8HR #180 tablet 04/13/21 Unknown Rx Allergies Allergy/AdvReac Type Severity Reaction Status Date / Time No Known Allergies Allergy Verified 09/11/20 10:02 Heart Score - HEART Score History: Moderately suspicious EKG: Non-specific Age: 45-65 Risk factors: 1-2 risk factors Troponin: 1-3x normal limit HEART Score: 5 - EKG Read Time Time EKG Completed: 05:17 EKG Read Time: 05:20 ED Review of Systems ROS: Stated complaint: Chest pain Other details as noted in HPI Comment: All other systems reviewed and negative ED Past Medical Hx - Past Medical History Hx Hypertension: Yes Hx Congestive Heart Failure: No Hx Sickle Cell Disease: No Hx Tuberculosis: No Hx HIV: No Additional medical history: Afib - Surgical History Past Surgical History?: No Additional Surgical History: plate in L ankle - Social History Smoking Status: Current Every Day Smoker - Medications Home Medications: Home Medications Medication Instructions Recorded Confirmed Last Taken Type Cefpodoxime Proxetil 200 mg PO Q12H #10 tablet 09/11/20 Unknown Rx Famotidine [Pepcid] 20 mg PO BID #30 tablet 04/13/21 Unknown Rx Losartan [Cozaar] 100 mg PO QDAY #60 tablet 04/13/21 Unknown Rx Metoprolol Xl [Metoprolol 25 mg PO QDAY #30 tablet 04/13/21 Unknown Rx SUCCINATE ER TAB] NIFEdipine XL [Procardia Xl] 60 mg PO Q12HR #60 tablet 04/13/21 Unknown Rx hydrALAZINE [Apresoline TAB] 50 mg PO Q8HR #180 tablet 04/13/21 Unknown Rx ED Physical Exam - General Limitations: No Limitations - Other Other exam information: General: No acute distress Head: Atraumatic Eyes: normal appearance ENT: Moist mucous membranes Neck: Normal appearance, no midline tenderness Chest: Clear to auscultation bilaterally CV: Regular rate and rhythm Abdomen: Soft, normal bowel sounds, nontender, nondistended, no rebound or guarding Back: Normal inspection Extremity: Normal inspection, full range of motion Neuro: Alert O x 3, no facial asymmetry, speech clear, no gross motor sensory deficit Psych: Appropriate behavior Skin: No rash ED Course Vital Signs 05/04/21 05/04/21 05/04/21 05:09 12:43 12:46 Temperature 98.9 F Pulse Rate 86 Respiratory 18 17 21 Rate Blood Pressure 193/135 193/135 Blood Pressure 167/127 [Right] O2 Sat by Pulse 98 96 97 Oximetry 05/04/21 05/04/21 05/04/21 13:00 13:05 13:10 Temperature Pulse Rate 89 85 Respiratory 14 16 18 Rate Blood Pressure 173/100 Blood Pressure 163/107 164/117 [Right] O2 Sat by Pulse 94 86 87 Oximetry 05/04/21 05/04/21 05/04/21 13:14 13:22 13:30 Temperature Pulse Rate 89 93 H 88 Respiratory 22 30 H 22 Rate Blood Pressure 164/119 Blood Pressure 162/116 [Right] O2 Sat by Pulse 84 98 100 Oximetry 05/04/21 05/04/21 05/04/21 13:46 14:00 14:16 Temperature Pulse Rate 94 H Respiratory 27 H Rate Blood Pressure 160/106 154/94 167/106 Blood Pressure [Right] O2 Sat by Pulse 95 95 98 Oximetry 05/04/21 05/04/21 05/04/21 14:30 14:46 15:00 Temperature Pulse Rate Respiratory Rate Blood Pressure 160/108 169/103 160/106 Blood Pressure [Right] O2 Sat by Pulse 100 99 100 Oximetry 05/04/21 05/04/21 05/04/21 15:16 15:48 16:00 Temperature Pulse Rate Respiratory Rate Blood Pressure 177/114 186/120 155/119 Blood Pressure [Right] O2 Sat by Pulse 95 87 100 Oximetry 05/04/21 05/04/21 05/04/21 16:16 16:30 16:45 Temperature Pulse Rate Respiratory Rate Blood Pressure 168/115 149/113 186/120 Blood Pressure [Right] O2 Sat by Pulse 100 100 100 Oximetry 05/04/21 05/04/21 05/04/21 17:01 17:15 17:31 Temperature Pulse Rate Respiratory Rate Blood Pressure 156/114 167/107 166/114 Blood Pressure [Right] O2 Sat by Pulse 100 100 100 Oximetry 05/04/21 05/04/21 05/04/21 17:45 18:01 18:15 Temperature Pulse Rate Respiratory Rate Blood Pressure 173/119 162/116 170/115 Blood Pressure [Right] O2 Sat by Pulse 100 100 100 Oximetry 05/04/21 05/04/21 05/04/21 18:31 18:45 19:01 Temperature Pulse Rate Respiratory Rate Blood Pressure 169/124 171/136 193/159 Blood Pressure [Right] O2 Sat by Pulse 100 98 100 Oximetry 05/04/21 05/04/21 05/04/21 19:15 19:31 19:45 Temperature Pulse Rate Respiratory Rate Blood Pressure 175/130 159/129 159/129 Blood Pressure [Right] O2 Sat by Pulse 85 92 97 Oximetry 05/04/21 05/04/21 05/04/21 20:01 20:15 20:31 Temperature Pulse Rate Respiratory Rate Blood Pressure 171/114 153/118 164/125 Blood Pressure [Right] O2 Sat by Pulse 96 98 100 Oximetry 05/04/21 05/04/21 05/04/21 20:45 21:01 21:15 Temperature Pulse Rate Respiratory Rate Blood Pressure 162/113 150/104 146/112 Blood Pressure [Right] O2 Sat by Pulse 100 99 99 Oximetry 05/04/21 05/04/21 05/04/21 21:31 21:45 22:01 Temperature Pulse Rate Respiratory Rate Blood Pressure 165/114 164/121 165/111 Blood Pressure [Right] O2 Sat by Pulse 96 99 99 Oximetry 05/04/21 05/04/21 05/04/21 22:15 22:27 22:44 Temperature Pulse Rate 106 H Respiratory 38 H Rate Blood Pressure 163/121 Blood Pressure [Right] O2 Sat by Pulse 99 97 97 Oximetry 05/04/21 05/04/21 05/04/21 22:45 23:00 23:01 Temperature Pulse Rate 105 H 104 H 113 H Respiratory 37 H 35 H 41 H Rate Blood Pressure 157/109 153/112 Blood Pressure 158/108 [Right] O2 Sat by Pulse 97 92 98 Oximetry 05/04/21 05/04/21 05/04/21 23:15 23:31 23:45 Temperature Pulse Rate 96 H 112 H 104 H Respiratory 39 H 29 H 32 H Rate Blood Pressure 152/101 159/105 154/109 Blood Pressure [Right] O2 Sat by Pulse 100 93 97 Oximetry 05/05/21 05/05/21 05/05/21 00:01 00:15 00:31 Temperature Pulse Rate 104 H 104 H 100 H Respiratory 26 H 24 34 H Rate Blood Pressure 157/113 151/106 147/97 Blood Pressure [Right] O2 Sat by Pulse 97 95 96 Oximetry 05/05/21 05/05/21 05/05/21 00:45 01:01 01:15 Temperature Pulse Rate 83 97 H 93 H Respiratory 29 H 27 H 29 H Rate Blood Pressure 145/101 141/100 145/101 Blood Pressure [Right] O2 Sat by Pulse 97 98 99 Oximetry 05/05/21 05/05/21 05/05/21 01:31 01:43 01:45 Temperature Pulse Rate 85 100 H 85 Respiratory 30 H 28 H 29 H Rate Blood Pressure 141/91 142/96 Blood Pressure 142/96 [Right] O2 Sat by Pulse 99 99 99 Oximetry 05/05/21 05/05/21 05/05/21 02:01 02:15 02:31 Temperature Pulse Rate 98 H 91 H 93 H Respiratory 30 H 25 H 26 H Rate Blood Pressure 157/101 151/98 141/100 Blood Pressure [Right] O2 Sat by Pulse 99 99 98 Oximetry 05/05/21 05/05/21 05/05/21 02:45 03:01 03:15 Temperature Pulse Rate 94 H 94 H 97 H Respiratory 28 H 28 H 30 H Rate Blood Pressure 146/93 141/94 147/97 Blood Pressure [Right] O2 Sat by Pulse 99 97 97 Oximetry 05/05/21 05/05/21 05/05/21 03:24 03:31 03:45 Temperature Pulse Rate 95 H 96 H 102 H Respiratory 31 H 28 H 26 H Rate Blood Pressure 150/102 147/94 Blood Pressure 145/101 [Right] O2 Sat by Pulse 98 98 98 Oximetry 05/05/21 05/05/21 05/05/21 04:01 04:15 04:31 Temperature Pulse Rate 99 H 101 H 97 H Respiratory 26 H 28 H 27 H Rate Blood Pressure 128/86 133/89 139/92 Blood Pressure [Right] O2 Sat by Pulse 94 94 96 Oximetry 05/05/21 05/05/21 05/05/21 04:45 04:50 04:59 Temperature Pulse Rate 98 H 100 H 98 H Respiratory 28 H 27 H 35 H Rate Blood Pressure 145/94 Blood Pressure 139/92 136/86 [Right] O2 Sat by Pulse 95 96 95 Oximetry 05/05/21 05/05/21 05/05/21 05:01 05:15 05:31 Temperature Pulse Rate 96 H 99 H 89 Respiratory 33 H 31 H 27 H Rate Blood Pressure 136/86 142/98 152/99 Blood Pressure [Right] O2 Sat by Pulse 92 96 97 Oximetry 05/05/21 05/05/21 05/05/21 05:45 06:01 06:15 Temperature Pulse Rate 83 96 H 89 Respiratory 31 H 26 H 31 H Rate Blood Pressure 151/103 146/107 149/107 Blood Pressure [Right] O2 Sat by Pulse 97 96 96 Oximetry 05/05/21 05/05/21 05/05/21 06:31 06:39 06:45 Temperature Pulse Rate 89 93 H 93 H Respiratory 34 H 28 H 30 H Rate Blood Pressure 150/93 144/97 Blood Pressure 154/94 [Right] O2 Sat by Pulse 97 97 96 Oximetry 05/05/21 05/05/21 05/05/21 07:01 07:15 07:31 Temperature Pulse Rate 95 H 120 H 93 H Respiratory 35 H 38 H 34 H Rate Blood Pressure 142/91 146/79 128/88 Blood Pressure [Right] O2 Sat by Pulse 97 97 92 Oximetry 05/05/21 05/05/21 05/05/21 07:45 08:01 08:15 Temperature Pulse Rate 92 H 95 H 91 H Respiratory 31 H 15 28 H Rate Blood Pressure 124/75 101/81 123/79 Blood Pressure [Right] O2 Sat by Pulse 95 97 97 Oximetry 05/05/21 05/05/21 05/05/21 08:31 08:45 09:00 Temperature Pulse Rate 92 H 93 H Respiratory 28 H 36 H 22 Rate Blood Pressure 101/63 118/80 85/69 Blood Pressure [Right] O2 Sat by Pulse 94 93 92 Oximetry 05/05/21 05/05/21 05/05/21 09:15 09:31 09:45 Temperature Pulse Rate 93 H 91 H 91 H Respiratory 27 H 18 34 H Rate Blood Pressure 119/80 135/78 118/82 Blood Pressure [Right] O2 Sat by Pulse 97 96 96 Oximetry 05/05/21 05/05/21 05/05/21 10:00 10:15 10:30 Temperature Pulse Rate 92 H 96 H 90 Respiratory 22 33 H 35 H Rate Blood Pressure 103/79 132/80 141/78 Blood Pressure [Right] O2 Sat by Pulse 84 91 91 Oximetry 05/05/21 05/05/21 05/05/21 10:45 11:00 11:15 Temperature Pulse Rate 90 98 H 92 H Respiratory 35 H 41 H 25 H Rate Blood Pressure 150/87 128/80 128/90 Blood Pressure [Right] O2 Sat by Pulse 90 64 L 65 L Oximetry 05/05/21 05/05/21 05/05/21 11:31 11:45 12:01 Temperature Pulse Rate 93 H Respiratory 50 H 23 25 H Rate Blood Pressure 123/105 131/96 131/94 Blood Pressure [Right] O2 Sat by Pulse 97 98 91 Oximetry 05/05/21 05/05/21 05/05/21 12:15 12:31 12:45 Temperature Pulse Rate 93 H 98 H Respiratory 28 H 37 H 39 H Rate Blood Pressure 140/67 134/95 146/95 Blood Pressure [Right] O2 Sat by Pulse 56 L 100 94 Oximetry 05/05/21 05/05/21 05/05/21 13:01 13:15 13:31 Temperature Pulse Rate 91 H 93 H 93 H Respiratory 37 H 40 H 40 H Rate Blood Pressure 140/89 146/93 138/96 Blood Pressure [Right] O2 Sat by Pulse 94 94 93 Oximetry 05/05/21 05/05/21 05/05/21 13:45 14:01 14:15 Temperature Pulse Rate 94 H 92 H 88 Respiratory 39 H 42 H 42 H Rate Blood Pressure 154/90 158/97 151/96 Blood Pressure [Right] O2 Sat by Pulse 89 84 81 L Oximetry 05/05/21 05/05/21 05/05/21 14:31 14:45 15:01 Temperature Pulse Rate 86 88 83 Respiratory 43 H 42 H 19 Rate Blood Pressure 155/87 156/96 113/81 Blood Pressure [Right] O2 Sat by Pulse 78 L 83 L 100 Oximetry 05/05/21 05/05/21 05/05/21 15:15 15:18 15:31 Temperature Pulse Rate 85 85 Respiratory 16 15 Rate Blood Pressure 107/76 114/70 Blood Pressure [Right] O2 Sat by Pulse 100 100 100 Oximetry 05/05/21 05/05/21 05/05/21 15:45 16:01 16:15 Temperature Pulse Rate 87 85 84 Respiratory 16 16 16 Rate Blood Pressure 117/83 119/77 118/78 Blood Pressure [Right] O2 Sat by Pulse 100 100 100 Oximetry 05/05/21 05/05/21 05/05/21 16:31 16:45 17:01 Temperature Pulse Rate 86 88 84 Respiratory 16 16 16 Rate Blood Pressure 119/81 122/83 116/83 Blood Pressure [Right] O2 Sat by Pulse 100 100 100 Oximetry - Consultations Consultation #1: 05/04/21 09:28 case d/w [facility] cardiology, at bedside evaluating patient ([facility]) 05/04/21 09:45 Patient will likely go to the [facility] Dr. Rizvi attending 05/04/21 10:08 As per cardiology will hold of on cath for now due to renal function. no beta sylvia due to cocaine abuse ROSA ELENA score - Rosa Elena Score Age > 65: (0) No Aspirin use within the Past 7 Days: (0) No 3 or more CAD Risk Factors: (0) No 2 or more Angina events in past 24 hrs: (1) Yes Known CAD with more than 50% Stenosis: (0) No Elevated Cardiac Markers: (0) No ST Deviation Greater than 0.5mm: (0) No ROSA ELENA Score: 1 ED Medical Decision Making - Lab Data Result diagrams: 05/04/21 10:13 05/05/21 03:40 Lab Results 05/04/21 05/04/21 05/04/21 Range/Units 07:25 07:25 07:25 WBC 12.9 H (4.5-11.0) K/mm3 RBC 3.04 L (3.65-5.03) M/mm3 Hgb 9.5 L (11.8-15.2) gm/dl Hct 28.4 L (35.5-45.6) % MCV 93 (84-94) fl MCH 31 (28-32) pg MCHC 34 (32-34) % RDW 15.4 H (13.2-15.2) % Plt Count 189 (140-440) K/mm3 Lymph % (Auto) 11.4 L (13.4-35.0) % Bowman % (Auto) 10.1 H (0.0-7.3) % Eos % (Auto) 0.1 (0.0-4.3) % Baso % (Auto) 0.4 (0.0-1.8) % Lymph # (Auto) 1.5 (1.2-5.4) K/mm3 Bowman # (Auto) 1.3 H (0.0-0.8) K/mm3 Eos # (Auto) 0.0 (0.0-0.4) K/mm3 Baso # (Auto) 0.1 (0.0-0.1) K/mm3 Seg Neutrophils % 78.0 H (40.0-70.0) % Seg Neutrophils # 10.0 H (1.8-7.7) K/mm3 PT 15.1 H (12.2-14.9) Sec. INR 1.07 (0.87-1.13) APTT (24.2-36.6) Sec. D-Dimer (0-234) ng/mlDDU Sodium 135 L (137-145) mmol/L Potassium 4.1 (3.6-5.0) mmol/L Chloride 99.0 (98-107) mmol/L Carbon Dioxide 22 (22-30) mmol/L Anion Gap 18 mmol/L BUN 65 H (9-20) mg/dL Creatinine 3.4 H (0.8-1.3) mg/dL Estimated GFR 19 ml/min BUN/Creatinine Ratio 19 % Glucose 118 H (75-100) mg/dL Calcium 9.3 (8.4-10.2) mg/dL Magnesium (1.7-2.3) mg/dL Total Bilirubin 1.50 H (0.1-1.2) mg/dL AST 519 H (5-40) units/L ALT 475 H (7-56) units/L Alkaline Phosphatase 108 (35-129) units/L Total Creatine Kinase (55-170) units/L Troponin T 1.300 H* (0.00-0.029) ng/mL Total Protein 7.2 (6.3-8.2) g/dL Albumin 3.9 (3.9-5) g/dL Albumin/Globulin Ratio 1.2 % Triglycerides 62 (2-149) mg/dL Cholesterol 140 (50-199) mg/dL LDL Cholesterol Direct 89 (50-130) mg/dL HDL Cholesterol 48 (40-59) mg/dL Cholesterol/HDL Ratio 2.91 % 05/04/21 05/04/21 05/04/21 Range/Units 07:25 08:42 08:42 WBC (4.5-11.0) K/mm3 RBC (3.65-5.03) M/mm3 Hgb (11.8-15.2) gm/dl Hct (35.5-45.6) % MCV (84-94) fl MCH (28-32) pg MCHC (32-34) % RDW (13.2-15.2) % Plt Count (140-440) K/mm3 Lymph % (Auto) (13.4-35.0) % Bowman % (Auto) (0.0-7.3) % Eos % (Auto) (0.0-4.3) % Baso % (Auto) (0.0-1.8) % Lymph # (Auto) (1.2-5.4) K/mm3 Bowman # (Auto) (0.0-0.8) K/mm3 Eos # (Auto) (0.0-0.4) K/mm3 Baso # (Auto) (0.0-0.1) K/mm3 Seg Neutrophils % (40.0-70.0) % Seg Neutrophils # (1.8-7.7) K/mm3 PT (12.2-14.9) Sec. INR (0.87-1.13) APTT 31.9 (24.2-36.6) Sec. D-Dimer 579.49 H (0-234) ng/mlDDU Sodium (137-145) mmol/L Potassium (3.6-5.0) mmol/L Chloride (98-107) mmol/L Carbon Dioxide (22-30) mmol/L Anion Gap mmol/L BUN (9-20) mg/dL Creatinine (0.8-1.3) mg/dL Estimated GFR ml/min BUN/Creatinine Ratio % Glucose (75-100) mg/dL Calcium (8.4-10.2) mg/dL Magnesium 2.20 (1.7-2.3) mg/dL Total Bilirubin (0.1-1.2) mg/dL AST (5-40) units/L ALT (7-56) units/L Alkaline Phosphatase (35-129) units/L Total Creatine Kinase 406 H (55-170) units/L Troponin T 1.230 H* (0.00-0.029) ng/mL Total Protein (6.3-8.2) g/dL Albumin (3.9-5) g/dL Albumin/Globulin Ratio % Triglycerides (2-149) mg/dL Cholesterol (50-199) mg/dL LDL Cholesterol Direct (50-130) mg/dL HDL Cholesterol (40-59) mg/dL Cholesterol/HDL Ratio % - EKG Data -: EKG Interpreted by Co EKG shows normal: sinus rhythm, intervals (QTC 479), QRS complexes (QRS duration 99), ST-T waves (LVH with lateral T wave inversions PVC) Rate: normal - EKG Data When compared to previous EKG there are: no significant change 05/04/21 09:28 no acute ekg changes x 2 (repeat at 98:46am), +PVC - Radiology Data Radiology results: report reviewed CHEST 2 VIEWS INDICATION / CLINICAL INFORMATION: chest pain. COMPARISON: 04/13/21 FINDINGS: SUPPORT DEVICES: None. HEART / MEDIASTINUM: Heart is upper normal size and stable. LUNGS / PLEURA: No significant pulmonary or pleural abnormality. No pneumothorax. ADDITIONAL FINDINGS: No significant additional findings. IMPRESSION: 1. No acute findings. No change. NUCLEAR MEDICINE PERFUSION SCAN INDICATION: elevated trop and ddimer, sob CORRELATION: Chest x-ray performed earlier today RADIOPHARMACEUTICAL: Perfusion: 5.1 mCi Tc-99m MAA given IV FINDINGS: Perfusion images show symmetric and uniform radiotracer distribution throughout bilateral lung zones with no evidence of unmatched segmental perfusion defects. Normal cardiac silhouette. IMPRESSION: Very low probability perfusion scan for pulmonary embolism. - Medical Decision Making 56-year-old male with a past medical history of hypertension, family history of CAD, smoker, and polysubstance abuse including methamphetamine and cocaine presents to the hospital with progressively worsening dyspnea on exertion with chest tightness. Patient also noncompliant with all his prescribed antihypertensive medications. Patient does not have any acute EKG changes however, has a significant elevated troponin, acute renal failure, elevation in LFTs. Patient placed on nitroglycerin drip and heparin drip and treated with aspirin. Patient evaluated by cardiology in the ED and cath to be placed on hold given renal insufficiency. Normal saline ordered. Nephrology consult ordered. Covid test pending. Low prob vq scan for Pulm embolism. Critical Care Time: Yes Critical care time in (mins) excluding proc time.: 35 Critical care attestation.: If time is entered above; I have spent that time in minutes in the direct care of this critically ill patient, excluding procedure time. Critical Care Time: 35 Minutes of critical care time excluding procedures were used in the care of the patient. I reviewed electronic record. Patient required emergent cardiology consultation in the ED, nitroglycerin drip, and heparin drip with reassessment of BP and chest pain status. Nephrology also consulted. ED Disposition Clinical Impression: NSTEMI (non-ST elevated myocardial infarction), SOB (shortness of breath), HTN (hypertension), Noncompliance with medication regimen, Elevated d-dimer, ARF (acute renal failure), LFT elevation, Polysubstance abuse Disposition: 09 ADMITTED INPATIENT Is pt being admited?: Yes Condition: Stable Time of Disposition: 09:28 (Dr Yañez)
[2021-05-04 08:01] LABS: Basophils # (Auto) 0.1 K/mm3 (0.0-0.1); Basophils % (Auto) 0.4 % (0.0-1.8); Eosinophils % (Auto) 0.1 % (0.0-4.3); Hematocrit 28.4 % (35.5-45.6); Hemoglobin 9.5 gm/dl (11.8-15.2); Lymphocytes # (Auto) 1.5 K/mm3 (1.2-5.4); Lymphocytes % (Auto) 11.4 % (13.4-35.0); Mean Corpuscular HGB Conc 34 % (32-34); Mean Corpuscular Volume 93 fl (84-94); Monocytes # (Auto) 1.3 K/mm3 (0.0-0.8); Monocytes % (Auto) 10.1 % (0.0-7.3); Platelet Count 189 K/mm3 (140-440); Red Blood Count 3.04 M/mm3 (3.65-5.03); Red Cell Distribution Width 15.4 % (13.2-15.2)
[2021-05-04 08:13] LABS: INR 1.07 (0.87-1.13)
[2021-05-04 08:16] LABS: Albumin 3.9 g/dL (3.9-5); Calcium 9.3 mg/dL (8.4-10.2)
[2021-05-04] MEDS ORDERED: NITROGLYCERIN 2% OINT 1 GM TP ONE (08:27)
[2021-05-04 08:30] LABS: Chol/HDL Ratio 2.91 %
[2021-05-04 08:43] LABS: Partial Thromboplastin Time 31.9 Sec. (24.2-36.6)
[2021-05-04] MEDS ORDERED: SODIUM CHLORIDE 0.9% 1000 ML 1,000 ML ONE (08:52)
[2021-05-04] MEDS ORDERED: SODIUM CHLORIDE 0.9% 1000 ML 1,000 ML IV ONE (09:00)
[2021-05-04] MEDS ORDERED: HEPARIN 10,000 UNITS/10 ML VIAL IV ONE (09:00)
[2021-05-04] MEDS ORDERED: HEPARIN 10,000 UNITS/10 ML VIAL IV PRN (09:00)
[2021-05-04 10:30] LABS: Hematocrit 26.6 % (35.5-45.6); Hemoglobin 8.8 gm/dl (11.8-15.2)
--- NOTE | 2021-05-04 11:20 | Nuclear Medicine Report ---
NUCLEAR MEDICINE PERFUSION SCAN INDICATION: elevated trop and ddimer, sob CORRELATION: Chest x-ray performed earlier today RADIOPHARMACEUTICAL: Perfusion: 5.1 mCi Tc-99m MAA given IV FINDINGS: Perfusion images show symmetric and uniform radiotracer distribution throughout bilateral lung zones with no evidence of unmatched segmental perfusion defects. Normal cardiac silhouette. IMPRESSION: Very low probability perfusion scan for pulmonary embolism. Signer Name: Royer Guajardo Jr, MD Signed: 05/04/2021 11:15 AM Workstation Name: [id number]
[2021-05-04] MEDS: HEPARIN/ 0.45% NACL DRIP 25,000 UNIT/500 ML BAG IV SCH (11:56)
[2021-05-04] MEDS: NITROGLYCERIN DRIP 50 MG/250 ML BOTTLE IV SCH (12:16)
[2021-05-04] MEDS ORDERED: MORPHINE 4 MG/1 ML INJ IV PRN (12:34)
[2021-05-04] MEDS ORDERED: ONDANSETRON 4 MG/2 ML INJ IV PRN (12:34)
[2021-05-04] MEDS ORDERED: HYDROcodone/ACETAMINOPHEN 5-325 MG TAB PO PRN (12:34)
--- NOTE | 2021-05-04 12:34 | History and Physical Report ---
History of Present Illness Date of examination: 05/04/21 Date of admission: 05/04/2021 Chief complaint: Chest pain History of present illness: 56-year-old male with a past medical history of smoking, A. fib, hypertension, and chronic medication noncompliance and homelessness presents to the hospital with complaints of dyspnea exertion x1 month progressively worsening for last 3 days. Patient also having intermittent left-sided chest tightness with activity. Patient complains of a persistent cough without fever. He is unvaccinated for COVID. Patient was admitted here August 2020 for bilateral pneumonia with hypoxia and was COVID-negative at that time. Patient was seen in the ED April 12 for chest pain and subsequently discharged with a refill his medications. Patient never filled the prescriptions and states he has not taking any of his meds for the past year because he cannot afford medications. He denies previous history of stress test. Patient denies any cough or cold- like symptoms. No headache or visual disturbances. Patient denies any ass ociated shortness of breath or diaphoresis. Past History Past Medical History: atrial fib, hypertension Past Surgical History: No surgical history Social history: smoking Family history: no significant family history Medications and Allergies Allergies Allergy/AdvReac Type Severity Reaction Status Date / Time No Known Allergies Allergy Verified 09/11/20 10:02 Home Medications Medication Instructions Recorded Confirmed Last Taken Type Cefpodoxime Proxetil 200 mg PO Q12H #10 tablet 09/11/20 Unknown Rx Famotidine [Pepcid] 20 mg PO BID #30 tablet 04/13/21 Unknown Rx Losartan [Cozaar] 100 mg PO QDAY #60 tablet 04/13/21 Unknown Rx Metoprolol Xl [Metoprolol 25 mg PO QDAY #30 tablet 04/13/21 Unknown Rx SUCCINATE ER TAB] NIFEdipine XL [Procardia Xl] 60 mg PO Q12HR #60 tablet 04/13/21 Unknown Rx hydrALAZINE [Apresoline TAB] 50 mg PO Q8HR #180 tablet 04/13/21 Unknown Rx Active Meds: Active Medications Aspirin (Aspirin 81 Mg Tab Chew) 81 mg PO ONCE@1000 [facility] Stop: 05/05/21 15:00 Heparin Sodium (Porcine) (Heparin 10,000 Units/10 Ml Vial) 3,300 unit 40 unit/kg (3300 unit) IV Q6H PRN PRN Reason: Anti-Xa Assay < 0.1 units/ml Heparin Sodium/Sodium Chloride (Heparin/ 0.45% Nacl-25,000 Unit/500 Ml) 25,000 unit in 500 mls @ 20 mls/hr IV TITRATE [facility]I; Protocol Last Admin: 05/04/21 11:56 Dose: 1,000 units/hr, 20 mls/hr Nitroglycerin/Dextrose (Tridil Drip 50mg/250ml) 50 mg in 250 mls @ 3 mls/hr IV TITR [facility]; Protocol Last Admin: 05/04/21 12:16 Dose: 10 mcg/min, 3 mls/hr Review of Systems All systems: negative Exam - Constitutional Vitals: Temp Pulse Resp BP Pulse Ox 98.9 F 86 18 167/127 98 05/04/21 05:09 05/04/21 05:09 05/04/21 05:09 05/04/21 05:09 05/04/21 05:09 General appearance: Present: no acute distress, well-nourished - EENT Eyes: Present: PERRL ENT: hearing intact, clear oral mucosa - Neck Neck: Present: supple, normal ROM - Respiratory Respiratory effort: normal Respiratory: bilateral: CTA - Cardiovascular Heart Sounds: Present: S1 & S2. Absent: rub, click - Extremities Extremities: pulses symmetrical, No edema Peripheral Pulses: within normal limits - Abdominal General gastrointestinal: Present: soft, non-tender, non-distended, normal bowel sounds Male genitourinary: Present: normal - Integumentary Integumentary: Present: clear, warm, dry - Musculoskeletal Musculoskeletal: gait normal, strength equal bilaterally - Psychiatric Psychiatric: appropriate mood/affect, intact judgment & insight - Neurologic Neurologic: CNII-XII intact, moves all extremities HEART Score - HEART Score EKG: Non-specific Age: 45-65 Risk factors: 1-2 risk factors Troponin: Troponin T 1.230 ng/mL (0.00-0.029) H* 05/04/21 08:42 Troponin: 1-3x normal limit Results - Labs CBC & Chem 7: 05/04/21 10:13 05/04/21 07:25 Labs: Laboratory Last Values WBC 12.9 K/mm3 (4.5-11.0) H 05/04/21 07:25 RBC 3.04 M/mm3 (3.65-5.03) L 05/04/21 07:25 Hgb 8.8 gm/dl (11.8-15.2) L 05/04/21 10:13 Hct 26.6 % (35.5-45.6) L 05/04/21 10:13 MCV 93 fl (84-94) 05/04/21 07:25 MCH 31 pg (28-32) 05/04/21 07:25 MCHC 34 % (32-34) 05/04/21 07:25 RDW 15.4 % (13.2-15.2) H 05/04/21 07:25 Plt Count 185 K/mm3 (140-440) 05/04/21 10:13 Lymph % (Auto) 11.4 % (13.4-35.0) L 05/04/21 07:25 [place] % (Auto) 10.1 % (0.0-7.3) H 05/04/21 07:25 Eos % (Auto) 0.1 % (0.0-4.3) 05/04/21 07:25 Baso % (Auto) 0.4 % (0.0-1.8) 05/04/21 07:25 Lymph # (Auto) 1.5 K/mm3 (1.2-5.4) 05/04/21 07:25 [place] # (Auto) 1.3 K/mm3 (0.0-0.8) H 05/04/21 07:25 Eos # (Auto) 0.0 K/mm3 (0.0-0.4) 05/04/21 07:25 Baso # (Auto) 0.1 K/mm3 (0.0-0.1) 05/04/21 07:25 Seg Neutrophils % 78.0 % (40.0-70.0) H 05/04/21 07:25 Seg Neutrophils # 10.0 K/mm3 (1.8-7.7) H 05/04/21 07:25 PT 15.1 Sec. (12.2-14.9) H 05/04/21 07:25 INR 1.07 (0.87-1.13) 05/04/21 07:25 APTT 31.9 Sec. (24.2-36.6) 05/04/21 07:25 D-Dimer 579.49 ng/mlDDU (0-234) H 05/04/21 07:25 Sodium 135 mmol/L (137-145) L 05/04/21 07:25 Potassium 4.1 mmol/L (3.6-5.0) 05/04/21 07:25 Chloride 99.0 mmol/L (98-107) 05/04/21 07:25 Carbon Dioxide 22 mmol/L (22-30) 05/04/21 07:25 Anion Gap 18 mmol/L 05/04/21 07:25 BUN 65 mg/dL (9-20) H 05/04/21 07:25 Creatinine 3.4 mg/dL (0.8-1.3) H 05/04/21 07:25 Estimated GFR 19 ml/min 05/04/21 07:25 BUN/Creatinine Ratio 19 % 05/04/21 07:25 Glucose 118 mg/dL (75-100) H 05/04/21 07:25 Calcium 9.3 mg/dL (8.4-10.2) 05/04/21 07:25 Magnesium 2.20 mg/dL (1.7-2.3) 05/04/21 08:42 Total Bilirubin 1.50 mg/dL (0.1-1.2) H 05/04/21 07:25 AST 519 units/L (5-40) H 05/04/21 07:25 ALT 475 units/L (7-56) H 05/04/21 07:25 Alkaline Phosphatase 108 units/L (35-129) 05/04/21 07:25 Total Creatine Kinase 406 units/L (55-170) H 05/04/21 08:42 Troponin T 1.230 ng/mL (0.00-0.029) H* 05/04/21 08:42 Total Protein 7.2 g/dL (6.3-8.2) 05/04/21 07:25 Albumin 3.9 g/dL (3.9-5) 05/04/21 07:25 Albumin/Globulin Ratio 1.2 % 05/04/21 07:25 Triglycerides 62 mg/dL (2-149) 05/04/21 07:25 Cholesterol 140 mg/dL (50-199) 05/04/21 07:25 LDL Cholesterol Direct 89 mg/dL (50-130) 05/04/21 07:25 HDL Cholesterol 48 mg/dL (40-59) 05/04/21 07:25 Cholesterol/HDL Ratio 2.91 % 05/04/21 07:25 Assessment and Plan Assessment and plan: Chest pain Acute kidney injury. Atrial fibrillation Cardiomyopathy. Echocardiogram from 08/2020 revealed LVEF is 50 to 55%. Mild to moderate concentric LVF. Severe diastolic dysfunction is present (restrictive filling). Right ventricle is mildly hypokinetic. RVSP is 48 mmHg. No valvular abnormalities. Accelerated hypertension Tobacco abuse History of cocaine use 05/04/2021. Cardiology was considering patient for [employer]. However, patient with elevated creatinine therefore will hold off on cath evaluation. Nephrology consultation for acute kidney injury. Etiology likely secondary to vasomotor nephropathy/dehydration. We will start IV fluid hydration. Check renal ultrasound to rule out obstructive uropathy. We will resume home medications for the accelerated hypertension
--- NOTE | 2021-05-04 12:48 | Consultation ---
History of Present Illness Consult date: 05/04/21 Requesting physician: ANUSHKA GOODMAN Consult reason: elevated troponin, shortness of breath History of present illness: Patient is a 56-year-old male with a past medical history of hypertension, paroxysmal SVT, medical noncompliance, smoking, substance abuse who presented to the ED with a complaint of shortness of breath and dyspnea on exertion x1 month however with significantly worsening symptoms since yesterday. Patient further reports that he had chest pressure on his left side of his chest that was worsened with exertion. He also states he has fatigue and some nausea. At time of interview patient reports that he is currently chest pain-free. Patient denies palpitations, vomiting, diaphoresis orthopnea. Of note in the ED patient was found to have significantly elevated troponins, elevated creatinine, being hypertensive emergency with blood pressure of 167/127. Patient previously seen by our practice in August 2020 however patient failed to follow-up as an outpatient. Cardiology was consulted for elevated troponins. Past History Past Medical History: hypertension Past Surgical History: No surgical history Social history: smoking, other (cocaine) Family history: CAD Medications and Allergies Allergies Allergy/AdvReac Type Severity Reaction Status Date / Time No Known Allergies Allergy Verified 09/11/20 10:02 Home Medications Medication Instructions Recorded Confirmed Last Taken Type Cefpodoxime Proxetil 200 mg PO Q12H #10 tablet 09/11/20 Unknown Rx Famotidine [Pepcid] 20 mg PO BID #30 tablet 04/13/21 Unknown Rx Losartan [Cozaar] 100 mg PO QDAY #60 tablet 04/13/21 Unknown Rx Metoprolol Xl [Metoprolol 25 mg PO QDAY #30 tablet 04/13/21 Unknown Rx SUCCINATE ER TAB] NIFEdipine XL [Procardia Xl] 60 mg PO Q12HR #60 tablet 04/13/21 Unknown Rx hydrALAZINE [Apresoline TAB] 50 mg PO Q8HR #180 tablet 04/13/21 Unknown Rx Active Meds: Active Medications Acetaminophen (Acetaminophen 325 Mg Tab) 650 mg PO Q4H PRN PRN Reason: Pain MILD(1-3)/Fever >100.5/MARIA Hydrocodone Bitart/Acetaminophen (Hydrocodone/Acetaminophen 5-325 Mg Tab) 2 each PO Q6H PRN PRN Reason: Pain, Moderate (4-6) Aspirin (Aspirin 81 Mg Tab Chew) 81 mg PO ONCE@1000 RISHI Stop: 05/05/21 15:00 Famotidine (Famotidine 20 Mg Tab) 20 mg PO BID [facility] Heparin Sodium (Porcine) (Heparin 10,000 Units/10 Ml Vial) 3,300 unit 40 unit/kg (3300 unit) IV Q6H PRN PRN Reason: Anti-Xa Assay < 0.1 units/ml Hydralazine HCl (Hydralazine 25 Mg Tab) 50 mg PO Q8HR [facility] Heparin Sodium/Sodium Chloride (Heparin/ 0.45% Nacl-25,000 Unit/500 Ml) 25,000 unit in 500 mls @ 20 mls/hr IV TITRATE [facility]I; Protocol Last Admin: 05/04/21 11:56 Dose: 1,000 units/hr, 20 mls/hr Nitroglycerin/Dextrose (Tridil Drip 50mg/250ml) 50 mg in 250 mls @ 3 mls/hr IV TITR [facility]; Protocol Last Admin: 05/04/21 12:16 Dose: 10 mcg/min, 3 mls/hr Losartan Potassium (Losartan 50 Mg Tab) 100 mg PO QDAY [facility] Metoprolol Succinate (Metoprolol Succinate Xl 25 Mg Tab) 25 mg PO QDAY [facility] Morphine Sulfate (Morphine 4 Mg/1 Ml Inj) 2 mg IV Q4H PRN PRN Reason: Pain , Severe (7-10) Nifedipine (Nifedipine Xl 60 Mg Tab) 60 mg PO Q12HR [facility] Ondansetron HCl (Ondansetron 4 Mg/2 Ml Inj) 4 mg IV Q8H PRN PRN Reason: Nausea And Vomiting Sodium Chloride (Sodium Chloride 0.9% 10 Ml Flush Syringe) 10 ml IV BID [facility] Sodium Chloride (Sodium Chloride 0.9% 10 Ml Flush Syringe) 10 ml IV PRN PRN PRN Reason: LINE FLUSH Review of Systems Constitutional: fatigue, no weight loss, no weight gain, no fever, no chills, no sweats Ears, nose, mouth and throat: no nasal congestion, no nasal discharge, no sinus pressure, no sinus pain Cardiovascular: chest pain, shortness of breath, dyspnea on exertion, no orthopnea, no palpitations, no edema, no syncope Respiratory: shortness of breath, dyspnea on exertion, no cough Gastrointestinal: nausea, no abdominal pain, no vomiting, no diarrhea Musculoskeletal: no neck stiffness, no neck pain, no shooting arm pain Integumentary: no rash, no pruritis, no redness Neurological: no head injury, no transient paralysis Psychiatric: no anxiety, no memory loss Endocrine: no cold intolerance, no heat intolerance Hematologic/Lymphatic: no easy bruising, no easy bleeding Physical Examination Vital Signs Temp Pulse Resp BP Pulse Ox 98.9 F 86 18 167/127 98 05/04/21 05:09 05/04/21 05:09 05/04/21 05:09 05/04/21 05:09 05/04/21 05:09 General appearance: no acute distress HEENT: Positive: PERRL Neck: Positive: trachea midline Cardiac: Positive: Reg Rate and Rhythm Lungs: Positive: Decreased Breath Sounds Neuro: Positive: Grossly Intact Abdomen: Positive: Soft Skin: Negative: Rash, Suspicious Lesions, Ulceration Extremities: Present: upper extr. pulses. Absent: edema Results 05/04/21 10:13 05/04/21 07:25 Cardiac Enzymes 05/04/21 05/04/21 05/04/21 Range/Units 07:25 07:25 07:25 WBC 12.9 H (4.5-11.0) K/mm3 RBC 3.04 L (3.65-5.03) M/mm3 Hgb 9.5 L (11.8-15.2) gm/dl Hct 28.4 L (35.5-45.6) % MCV 93 (84-94) fl MCH 31 (28-32) pg MCHC 34 (32-34) % RDW 15.4 H (13.2-15.2) % Plt Count 189 (140-440) K/mm3 Lymph % (Auto) 11.4 L (13.4-35.0) % [place] % (Auto) 10.1 H (0.0-7.3) % Eos % (Auto) 0.1 (0.0-4.3) % Baso % (Auto) 0.4 (0.0-1.8) % Lymph # (Auto) 1.5 (1.2-5.4) K/mm3 [place] # (Auto) 1.3 H (0.0-0.8) K/mm3 Eos # (Auto) 0.0 (0.0-0.4) K/mm3 Baso # (Auto) 0.1 (0.0-0.1) K/mm3 Seg Neutrophils % 78.0 H (40.0-70.0) % Seg Neutrophils # 10.0 H (1.8-7.7) K/mm3 PT 15.1 H (12.2-14.9) Sec. INR 1.07 (0.87-1.13) APTT (24.2-36.6) Sec. D-Dimer (0-234) ng/mlDDU Sodium 135 L (137-145) mmol/L Potassium 4.1 (3.6-5.0) mmol/L Chloride 99.0 (98-107) mmol/L Carbon Dioxide 22 (22-30) mmol/L Anion Gap 18 mmol/L BUN 65 H (9-20) mg/dL Creatinine 3.4 H (0.8-1.3) mg/dL Estimated GFR 19 ml/min BUN/Creatinine Ratio 19 % Glucose 118 H (75-100) mg/dL Calcium 9.3 (8.4-10.2) mg/dL Magnesium (1.7-2.3) mg/dL Total Bilirubin 1.50 H (0.1-1.2) mg/dL AST 519 H (5-40) units/L ALT 475 H (7-56) units/L Alkaline Phosphatase 108 (35-129) units/L Total Creatine Kinase (55-170) units/L Troponin T 1.300 H* (0.00-0.029) ng/mL Total Protein 7.2 (6.3-8.2) g/dL Albumin 3.9 (3.9-5) g/dL Albumin/Globulin Ratio 1.2 % Triglycerides 62 (2-149) mg/dL Cholesterol 140 (50-199) mg/dL LDL Cholesterol Direct 89 (50-130) mg/dL HDL Cholesterol 48 (40-59) mg/dL Cholesterol/HDL Ratio 2.91 % 05/04/21 05/04/21 05/04/21 Range/Units 07:25 08:42 08:42 WBC (4.5-11.0) K/mm3 RBC (3.65-5.03) M/mm3 Hgb (11.8-15.2) gm/dl Hct (35.5-45.6) % MCV (84-94) fl MCH (28-32) pg MCHC (32-34) % RDW (13.2-15.2) % Plt Count (140-440) K/mm3 Lymph % (Auto) (13.4-35.0) % [place] % (Auto) (0.0-7.3) % Eos % (Auto) (0.0-4.3) % Baso % (Auto) (0.0-1.8) % Lymph # (Auto) (1.2-5.4) K/mm3 [place] # (Auto) (0.0-0.8) K/mm3 Eos # (Auto) (0.0-0.4) K/mm3 Baso # (Auto) (0.0-0.1) K/mm3 Seg Neutrophils % (40.0-70.0) % Seg Neutrophils # (1.8-7.7) K/mm3 PT (12.2-14.9) Sec. INR (0.87-1.13) APTT 31.9 (24.2-36.6) Sec. D-Dimer 579.49 H (0-234) ng/mlDDU Sodium (137-145) mmol/L Potassium (3.6-5.0) mmol/L Chloride (98-107) mmol/L Carbon Dioxide (22-30) mmol/L Anion Gap mmol/L BUN (9-20) mg/dL Creatinine (0.8-1.3) mg/dL Estimated GFR ml/min BUN/Creatinine Ratio % Glucose (75-100) mg/dL Calcium (8.4-10.2) mg/dL Magnesium 2.20 (1.7-2.3) mg/dL Total Bilirubin (0.1-1.2) mg/dL AST (5-40) units/L ALT (7-56) units/L Alkaline Phosphatase (35-129) units/L Total Creatine Kinase 406 H (55-170) units/L Troponin T 1.230 H* (0.00-0.029) ng/mL Total Protein (6.3-8.2) g/dL Albumin (3.9-5) g/dL Albumin/Globulin Ratio % Triglycerides (2-149) mg/dL Cholesterol (50-199) mg/dL LDL Cholesterol Direct (50-130) mg/dL HDL Cholesterol (40-59) mg/dL Cholesterol/HDL Ratio % 05/04/ Range/Units 10:13 WBC (4.5-11.0) K/mm3 RBC (3.65-5.03) M/mm3 Hgb 8.8 L (11.8-15.2) gm/dl Hct 26.6 L (35.5-45.6) % MCV (84-94) fl MCH (28-32) pg MCHC (32-34) % RDW (13.2-15.2) % Plt Count 185 (140-440) K/mm3 Lymph % (Auto) (13.4-35.0) % [place] % (Auto) (0.0-7.3) % Eos % (Auto) (0.0-4.3) % Baso % (Auto) (0.0-1.8) % Lymph # (Auto) (1.2-5.4) K/mm3 [place] # (Auto) (0.0-0.8) K/mm3 Eos # (Auto) (0.0-0.4) K/mm3 Baso # (Auto) (0.0-0.1) K/mm3 Seg Neutrophils % (40.0-70.0) % Seg Neutrophils # (1.8-7.7) K/mm3 PT (12.2-14.9) Sec. INR (0.87-1.13) APTT (24.2-36.6) Sec. D-Dimer (0-234) ng/mlDDU Sodium (137-145) mmol/L Potassium (3.6-5.0) mmol/L Chloride (98-107) mmol/L Carbon Dioxide (22-30) mmol/L Anion Gap mmol/L BUN (9-20) mg/dL Creatinine (0.8-1.3) mg/dL Estimated GFR ml/min BUN/Creatinine Ratio % Glucose (75-100) mg/dL Calcium (8.4-10.2) mg/dL Magnesium (1.7-2.3) mg/dL Total Bilirubin (0.1-1.2) mg/dL AST (5-40) units/L ALT (7-56) units/L Alkaline Phosphatase (35-129) units/L Total Creatine Kinase (55-170) units/L Troponin T (0.00-0.029) ng/mL Total Protein (6.3-8.2) g/dL Albumin (3.9-5) g/dL Albumin/Globulin Ratio % Triglycerides (2-149) mg/dL Cholesterol (50-199) mg/dL LDL Cholesterol Direct (50-130) mg/dL HDL Cholesterol (40-59) mg/dL Cholesterol/HDL Ratio % Coagulation 05/04/21 05/04/21 Range/Units 07:25 07:25 PT 15.1 H (12.2-14.9) Sec. INR 1.07 (0.87-1.13) APTT 31.9 (24.2-36.6) Sec. Lipids 05/04/21 Range/Units 07:25 Triglycerides 62 (2-149) mg/dL Cholesterol 140 (50-199) mg/dL HDL Cholesterol 48 (40-59) mg/dL Cholesterol/HDL Ratio 2.91 % CBC 05/04/21 05/04/21 Range/Units 07:25 10:13 WBC 12.9 H (4.5-11.0) K/mm3 RBC 3.04 L (3.65-5.03) M/mm3 Hgb 9.5 L 8.8 L (11.8-15.2) gm/dl Hct 28.4 L 26.6 L (35.5-45.6) % Plt Count 189 185 (140-440) K/mm3 Lymph # (Auto) 1.5 (1.2-5.4) K/mm3 [place] # (Auto) 1.3 H (0.0-0.8) K/mm3 Eos # (Auto) 0.0 (0.0-0.4) K/mm3 Baso # (Auto) 0.1 (0.0-0.1) K/mm3 Comprehensive Metabolic Panel 05/04/21 Range/Units 07:25 Sodium 135 L (137-145) mmol/L Potassium 4.1 (3.6-5.0) mmol/L Chloride 99.0 (98-107) mmol/L Carbon Dioxide 22 (22-30) mmol/L BUN 65 H (9-20) mg/dL Creatinine 3.4 H (0.8-1.3) mg/dL Glucose 118 H (75-100) mg/dL Calcium 9.3 (8.4-10.2) mg/dL AST 519 H (5-40) units/L ALT 475 H (7-56) units/L Alkaline Phosphatase 108 (35-129) units/L Total Protein 7.2 (6.3-8.2) g/dL Albumin 3.9 (3.9-5) g/dL - Imaging and Cardiology Echo: pending, report reviewed EKG interpretations - Telemetry EKG Rhythm: Sinus Rhythm - EKG Sinus rhythms and dysrhythmias: sinus rhythm Chamber hypertrophy or enlargement: left ventricular hypertro Assessment and Plan Patient is a 56-year-old male with a past medical history of hypertension, paroxysmal SVT, medical noncompliance, smoking, substance abuse who presented to the ED with a complaint of shortness of breath and dyspnea on exertion x1 month however with significantly worsening symptoms since yesterday. NSTEMI Hypertensive Emergency YE Elevated LFTs Elevated D-dimer SOB Medical noncompliance Polysubstance abuse- UA drug panel pending Echocardiogram reviewed (08/27/2020): LVEF is 50 to 55%. Mild to moderate conc entric LVF. Severe diastolic dysfunction is present (restrictive filling). Right ventricle is mildly hypokinetic. RVSP is 48 mmHg. No valvular abnormalities. Plan: EKG shows sinus 86 with PVCs LVH and no acute ischemic changes. Troponin noted to be elevated but downtrending 1.3->1.2. Repeat cardiac enzyme pending Patient currently chest pain-free and EKG shows no acute ischemic changes. Tro ponins elevated in setting of YE and hypertensive emergency Due to patient's renal function and elevated LFTs recommend medical management Agree with heparin drip and nitro drip No beta-blockers due to cocaine use Echo pending Patient seen in conjunction with Dr. Rizvi who agrees with this plan of care - Patient Problems (1) ARF (acute renal failure) Current Visit: Yes Status: Acute (2) Elevated d-dimer Current Visit: Yes Status: Acute (3) LFT elevation Current Visit: Yes Status: Acute (4) NSTEMI (non-ST elevated myocardial infarction) Current Visit: Yes Status: Acute (5) Polysubstance abuse Current Visit: Yes Status: Acute (6) SOB (shortness of breath) Current Visit: Yes Status: Acute (7) Hypertension Current Visit: Yes Status: Chronic (8) Noncompliance with medication regimen Current Visit: Yes Status: Chronic (9) Hypertensive urgency Current Visit: No Status: Resolved
[2021-05-04 13:15] LABS: Benzodiazepines Screen,Urine Negative; Cannabinoid Screen,Urine Negative; Cocaine Screen,Urine Negative; Methadone Screen,Urine Negative; Opiate Screen,Urine Negative
[2021-05-04 13:47] LABS: Amphetamine Screen,Urine Positive
[2021-05-04] MEDS ORDERED: diphenhydrAMINE 50 MG/ML VIAL IV ONE (15:53)
[2021-05-04] MEDS: LORazepam 2 MG/ML VIAL IV PRN ×3 (16:06→23:39)
--- NOTE | 2021-05-04 16:13 | Consultation ---
History of Present Illness - Reason for Consult Consult date: 05/04/21 acute renal failure - History of Present Illness History obtained from records due to mental status. Mr. Harrison is a 56-year-old male w/ hypertension, atrial fibrillation in setting of chronic medication noncompliance and homelessness who presented to the ED with a 1 month hx of SAHU which progressively worsened 3d [employer]. Patient also reported intermittent chest pain. He has a hx of bilateral PNA and acute hypoxic respiratory failure in August 2020. He was negative for COVID at that time. He presented to the ED with chest pain on Apr 12 and was discharged to home w/ medication refill. Patient did not fill prescriptions. Past History Past Medical History: hypertension Past Surgical History: No surgical history Social history: smoking, other (cocaine) Family history: CAD Medications and Allergies Allergies Allergy/AdvReac Type Severity Reaction Status Date / Time No Known Allergies Allergy Verified 09/11/20 10:02 Home Medications Medication Instructions Recorded Confirmed Last Taken Type Cefpodoxime Proxetil 200 mg PO Q12H #10 tablet 09/11/20 Unknown Rx Famotidine [Pepcid] 20 mg PO BID #30 tablet 04/13/21 Unknown Rx Losartan [Cozaar] 100 mg PO QDAY #60 tablet 04/13/21 Unknown Rx Metoprolol Xl [Metoprolol 25 mg PO QDAY #30 tablet 04/13/21 Unknown Rx SUCCINATE ER TAB] NIFEdipine XL [Procardia Xl] 60 mg PO Q12HR #60 tablet 04/13/21 Unknown Rx hydrALAZINE [Apresoline TAB] 50 mg PO Q8HR #180 tablet 04/13/21 Unknown Rx Active Meds: Active Medications Acetaminophen (Acetaminophen 325 Mg Tab) 650 mg PO Q4H PRN PRN Reason: Pain MILD(1-3)/Fever >100.5/MARIA Hydrocodone Bitart/Acetaminophen (Hydrocodone/Acetaminophen 5-325 Mg Tab) 2 each PO Q6H PRN PRN Reason: Pain, Moderate (4-6) Aspirin (Aspirin 81 Mg Tab Chew) 81 mg PO ONCE@1000 [facility] Stop: 05/05/21 15:00 Famotidine (Famotidine 20 Mg Tab) 20 mg PO QDAY [facility] Heparin Sodium (Porcine) (Heparin 10,000 Units/10 Ml Vial) 3,300 unit 40 unit/kg (3300 unit) IV Q6H PRN PRN Reason: Anti-Xa Assay < 0.1 units/ml Hydralazine HCl (Hydralazine 25 Mg Tab) 50 mg PO Q8HR [facility] Heparin Sodium/Sodium Chloride (Heparin/ 0.45% Nacl-25,000 Unit/500 Ml) 25,000 unit in 500 mls @ 20 mls/hr IV TITRATE [facility]; Protocol Last Admin: 05/04/21 11:56 Dose: 1,000 units/hr, 20 mls/hr Nitroglycerin/Dextrose (Tridil Drip 50mg/250ml) 50 mg in 250 mls @ 3 mls/hr IV TITR [facility]; Protocol Last Titration: 05/04/21 12:58 Dose: 15 mcg/min, 4.5 mls/hr Lorazepam (Lorazepam 2 Mg/Ml Vial) 0.5 mg IV Q4H PRN PRN Reason: Anxiety Last Admin: 05/04/21 16:06 Dose: 0.5 mg Losartan Potassium (Losartan 50 Mg Tab) 100 mg PO QDAY [facility] Metoprolol Succinate (Metoprolol Succinate Xl 25 Mg Tab) 25 mg PO QDAY [facility] Morphine Sulfate (Morphine 4 Mg/1 Ml Inj) 2 mg IV Q4H PRN PRN Reason: Pain , Severe (7-10) Nifedipine (Nifedipine Xl 60 Mg Tab) 60 mg PO Q12HR [facility] Ondansetron HCl (Ondansetron 4 Mg/2 Ml Inj) 4 mg IV Q8H PRN PRN Reason: Nausea And Vomiting Sodium Chloride (Sodium Chloride 0.9% 10 Ml Flush Syringe) 10 ml IV BID [facility] Sodium Chloride (Sodium Chloride 0.9% 10 Ml Flush Syringe) 10 ml IV PRN PRN PRN Reason: LINE FLUSH Review of Systems All systems: negative Exam - Vital Signs Vital signs: Vital Signs Temp Pulse Resp BP Pulse Ox 98.9 F 86 18 167/127 98 05/04/21 05:09 05/04/21 05:09 05/04/21 05:09 05/04/21 05:09 05/04/21 05:09 - General Appearance General appearance: well-developed, well-nourished EENT: ATNC Respiratory: Clear to Ascultation Heart: regular, S1S2 Gastrointestinal: Present: normal. Absent: tenderness, distended Integumentary: no rash Psychiatric: other (restless) Results - Lab Results 05/04/21 10:13 05/04/21 07:25 Most recent lab results Calcium 9.3 mg/dL (8.4-10.2) 05/04/21 07:25 Magnesium 2.20 mg/dL (1.7-2.3) 05/04/21 08:42 Assessment and Plan Impression * Acute kidney injury * NSTEMI * Hypertension * Anemia * Metabolic acidosis * Methamphetamine abuse * Transaminitis Plan: * No acute indication of renal replacement therapy * Will obtain urine studies * Obtain serologies * Obtain renal ultrasound * Cardiology recommendations noted * Dose medications for renal function * Avoid potential nephrotoxins * Strict I/O
[2021-05-04] MEDS: hydrALAZINE 25 MG TAB PO SCH ×2 (18:45→21:51)
[2021-05-04] MEDS: FAMOTIDINE 20 MG TAB PO SCH (18:45)
[2021-05-04] MEDS: NIFEdipine XL 60 MG TAB PO SCH (21:51)
[2021-05-04] MEDS ORDERED: LORazepam 2 MG/ML VIAL IV PRN (23:15)
[2021-05-05] MEDS: NITROGLYCERIN DRIP 50 MG/250 ML BOTTLE IV SCH (03:10)
[2021-05-05 04:24] LABS: Calcium 8.4 mg/dL (8.4-10.2)
[2021-05-05 04:43] LABS: Hepatitis B Surface Antigen Non-Reactive (Negative); Hepatitis C Virus Antibody Reactive (NonReactive)
[2021-05-05] MEDS: LORazepam 2 MG/ML VIAL IV PRN ×4 (08:05→10:00)
[2021-05-05] MEDS ORDERED: POTASSIUM CHLORIDE ER 20 MEQ TAB PO NR (09:30)
--- NOTE | 2021-05-05 09:32 | Progress Note ---
Assessment and Plan Impression * Acute kidney injury --Renal ultrasound: 1.7cm mass hyperechoic mass upper pole left kidney - ?angiomyolipoma * NSTEMI * Hypertension * Anemia * Metabolic acidosis * Methamphetamine abuse * Transaminitis Plan: * Renal function improved. No acute indication of renal replacement therapy * KCL 40meq x 1 dose * Await urine studies * Await pending serologies * Renal ultrasound reviewed - will need follow up CT once stable * Continue antiHTN medications * Cardiology recommendations noted * Dose medications for renal function * Avoid potential nephrotoxins * Strict I/O Subjective Date of service: 05/05/21 Interval history: Patient intubated for acute hypoxic respiratory failure. Objective - Vital Signs Vital signs: Vital Signs - 12hr 05/04/21 05/04/21 05/04/21 21:31 21:45 22:01 Pulse Rate Respiratory Rate Blood Pressure 165/114 164/121 165/111 Blood Pressure [Right] O2 Sat by Pulse 96 99 99 Oximetry 05/04/21 05/04/21 05/04/21 22:15 22:27 22:44 Pulse Rate 106 H Respiratory 38 H Rate Blood Pressure 163/121 Blood Pressure [Right] O2 Sat by Pulse 99 97 97 Oximetry 05/04/21 05/04/21 05/04/21 22:45 23:00 23:01 Pulse Rate 105 H 104 H 113 H Respiratory 37 H 35 H 41 H Rate Blood Pressure 157/109 153/112 Blood Pressure 158/108 [Right] O2 Sat by Pulse 97 92 98 Oximetry 05/04/21 05/04/21 05/04/21 23:15 23:31 23:45 Pulse Rate 96 H 112 H 104 H Respiratory 39 H 29 H 32 H Rate Blood Pressure 152/101 159/105 154/109 Blood Pressure [Right] O2 Sat by Pulse 100 93 97 Oximetry 05/05/21 05/05/21 05/05/21 00:01 00:15 00:31 Pulse Rate 104 H 104 H 100 H Respiratory 26 H 24 34 H Rate Blood Pressure 157/113 151/106 147/97 Blood Pressure [Right] O2 Sat by Pulse 97 95 96 Oximetry 05/05/21 05/05/21 05/05/21 00:45 01:01 01:15 Pulse Rate 83 97 H 93 H Respiratory 29 H 27 H 29 H Rate Blood Pressure 145/101 141/100 145/101 Blood Pressure [Right] O2 Sat by Pulse 97 98 99 Oximetry 05/05/21 05/05/21 05/05/21 01:31 01:43 01:45 Pulse Rate 85 100 H 85 Respiratory 30 H 28 H 29 H Rate Blood Pressure 141/91 142/96 Blood Pressure 142/96 [Right] O2 Sat by Pulse 99 99 99 Oximetry 05/05/21 05/05/21 05/05/21 02:01 02:15 02:31 Pulse Rate 98 H 91 H 93 H Respiratory 30 H 25 H 26 H Rate Blood Pressure 157/101 151/98 141/100 Blood Pressure [Right] O2 Sat by Pulse 99 99 98 Oximetry 05/05/21 05/05/21 05/05/21 02:45 03:01 03:15 Pulse Rate 94 H 94 H 97 H Respiratory 28 H 28 H 30 H Rate Blood Pressure 146/93 141/94 147/97 Blood Pressure [Right] O2 Sat by Pulse 99 97 97 Oximetry 05/05/21 05/05/21 05/05/21 03:24 03:31 03:45 Pulse Rate 95 H 96 H 102 H Respiratory 31 H 28 H 26 H Rate Blood Pressure 150/102 147/94 Blood Pressure 145/101 [Right] O2 Sat by Pulse 98 98 98 Oximetry 05/05/21 05/05/21 05/05/21 04:01 04:15 04:31 Pulse Rate 99 H 101 H 97 H Respiratory 26 H 28 H 27 H Rate Blood Pressure 128/86 133/89 139/92 Blood Pressure [Right] O2 Sat by Pulse 94 94 96 Oximetry 05/05/21 05/05/21 05/05/21 04:45 04:50 04:59 Pulse Rate 98 H 100 H 98 H Respiratory 28 H 27 H 35 H Rate Blood Pressure 145/94 Blood Pressure 139/92 136/86 [Right] O2 Sat by Pulse 95 96 95 Oximetry 05/05/21 05/05/21 05/05/21 05:01 05:15 05:31 Pulse Rate 96 H 99 H 89 Respiratory 33 H 31 H 27 H Rate Blood Pressure 136/86 142/98 152/99 Blood Pressure [Right] O2 Sat by Pulse 92 96 97 Oximetry 05/05/21 05/05/21 05/05/21 05:45 06:01 06:15 Pulse Rate 83 96 H 89 Respiratory 31 H 26 H 31 H Rate Blood Pressure 151/103 146/107 149/107 Blood Pressure [Right] O2 Sat by Pulse 97 96 96 Oximetry 05/05/21 05/05/21 05/05/21 06:31 06:39 06:45 Pulse Rate 89 93 H 93 H Respiratory 34 H 28 H 30 H Rate Blood Pressure 150/93 144/97 Blood Pressure 154/94 [Right] O2 Sat by Pulse 97 97 96 Oximetry 05/05/21 07:01 Pulse Rate 95 H Respiratory 35 H Rate Blood Pressure 142/91 Blood Pressure [Right] O2 Sat by Pulse 97 Oximetry - Lab 05/04/21 10:13 05/05/21 03:40 Most recent lab results Calcium 8.4 mg/dL (8.4-10.2) 05/05/21 03:40 Magnesium 2.20 mg/dL (1.7-2.3) 05/04/21 08:42 Medications & Allergies - Medications Allergies/Adverse Reactions: Allergies No Known Allergies Allergy (Verified 09/11/20 10:02) Home Medications: Home Medications Medication Instructions Recorded Confirmed Last Taken Type Cefpodoxime Proxetil 200 mg PO Q12H #10 tablet 09/11/20 Unknown Rx Famotidine [Pepcid] 20 mg PO BID #30 tablet 04/13/21 Unknown Rx Losartan [Cozaar] 100 mg PO QDAY #60 tablet 04/13/21 Unknown Rx Metoprolol Xl [Metoprolol 25 mg PO QDAY #30 tablet 04/13/21 Unknown Rx SUCCINATE ER TAB] NIFEdipine XL [Procardia Xl] 60 mg PO Q12HR #60 tablet 04/13/21 Unknown Rx hydrALAZINE [Apresoline TAB] 50 mg PO Q8HR #180 tablet 04/13/21 Unknown Rx Active Medications: Generic Name Dose Route Start Last Admin Trade Name Freq PRN Reason Stop Dose Admin Acetaminophen 650 mg 05/04/21 12:34 Acetaminophen 325 Mg Tab PO Q4H PRN Pain MILD(1-3)/Fever >100.5/MARIA Hydrocodone Bitart/Acetaminophen 2 each 05/04/21 12:34 Hydrocodone/Acetaminophen 5-325 Mg Tab PO Q6H PRN Pain, Moderate (4-6) Aspirin 81 mg 05/05/21 10:00 Aspirin 81 Mg Tab Chew PO 05/05/21 15:00 ONCE@1000 RISHI Famotidine 20 mg 05/04/21 14:00 05/04/21 18:45 Famotidine 20 Mg Tab PO Not Given QDAY [facility] Heparin Sodium (Porcine) 3,300 unit 05/04/21 09:00 05/04/21 21:06 Heparin 10,000 Units/10 Ml Vial 40 unit/kg (3300 unit) 3,300 unit IV Administration Q6H PRN Anti-Xa Assay < 0.1 units/ml Hydralazine HCl 50 mg 05/04/21 14:00 05/04/21 21:51 Hydralazine 25 Mg Tab PO 50 mg Q8HR RISHI Administration Heparin Sodium/Sodium Chloride 25,000 unit in 500 mls @ 20 mls/hr 05/04/21 09:00 05/05/21 04:54 Heparin/ 0.45% Nacl-25,000 Unit/500 Ml IV 1,400 units/hr TITRATE RISHI 28 mls/hr Titration Protocol 1,000 UNITS/HR Nitroglycerin/Dextrose 50 mg in 250 mls @ 3 mls/hr 05/04/21 10:00 05/05/21 04:57 Tridil Drip 50mg/250ml IV 170 mcg/min TITR [facility] 51 mls/hr Titration Protocol 10 MCG/MIN Lorazepam 0.5 mg 05/04/21 15:46 05/04/21 21:51 Lorazepam 2 Mg/Ml Vial IV 0.5 mg Q4H PRN Administration Anxiety Lorazepam 2 mg 05/04/21 23:15 05/04/21 23:39 Lorazepam 2 Mg/Ml Vial IV 2 mg Q1HR PRN Administration CIWA-Ar 8-15 Lorazepam 4 mg 05/04/21 23:15 05/05/21 08:05 Lorazepam 2 Mg/Ml Vial IV 4 mg Q1HR PRN Administration CIWA-Ar 16-25 Lorazepam 4 mg 05/04/21 23:15 Lorazepam 2 Mg/Ml Vial IV Q15MIN PRN CIWA-Ar >25 Metoprolol Succinate 25 mg 05/05/21 10:00 Metoprolol Succinate Xl 25 Mg Tab PO QDAY [facility] Morphine Sulfate 2 mg 05/04/21 12:34 Morphine 4 Mg/1 Ml Inj IV Q4H PRN Pain , Severe (7-10) Nifedipine 60 mg 05/04/21 22:00 05/04/21 21:51 Nifedipine Xl 60 Mg Tab PO 60 mg Q12HR RISHI Administration Ondansetron HCl 4 mg 05/04/21 12:34 05/04/21 21:51 Ondansetron 4 Mg/2 Ml Inj IV 4 mg Q8H PRN Administration Nausea And Vomiting Sodium Chloride 10 ml 05/04/21 22:00 05/04/21 21:51 Sodium Chloride 0.9% 10 Ml Flush Syringe IV 10 ml BID RISHI Administration Sodium Chloride 10 ml 05/04/21 12:34 Sodium Chloride 0.9% 10 Ml Flush Syringe IV PRN PRN LINE FLUSH
[2021-05-05] MEDS ORDERED: LOSARTAN 50 MG TAB PO SCH (10:00)
[2021-05-05] MEDS ORDERED: ENOXAPARIN 30 MG/0.3 ML INJ SUB-Q SCH (10:00)
[2021-05-05] MEDS ORDERED: ASPIRIN 81 MG TAB CHEW PO SCH (10:00)
[2021-05-05 10:26] LABS: Bilirubin,Urine NEG (Negative); Blood,Urine NEG (Negative); Color,Urine Yellow (Yellow); Mucus,Urine FEW /HPF; Protein,Urine <15 mg/dL mg/dL (Negative); RBC,Urine < 1.0 /HPF (0.0-6.0); Urobilinogen,Urine < 2.0 mg/dL (<2.0)
[2021-05-05] MEDS: hydrALAZINE 25 MG TAB PO SCH ×2 (11:11→15:04)
[2021-05-05] MEDS: METOPROLOL SUCCINATE XL 25 MG TAB PO SCH (11:12)
[2021-05-05] MEDS: NIFEdipine XL 60 MG TAB PO SCH (11:12)
[2021-05-05] MEDS: FAMOTIDINE 20 MG TAB PO SCH (11:12)
--- NOTE | 2021-05-05 12:00 | Progress Note ---
Assessment and Plan Patient is a 56-year-old male with a past medical history of hypertension, paroxysmal SVT, medical noncompliance, smoking, substance abuse who presented to the ED with a complaint of shortness of breath and dyspnea on exertion x1 month however with significantly worsening symptoms since yesterday. NSTEMI Hypertensive Emergency YE Hepatitis C Elevated D-dimer SOB Medical noncompliance Polysubstance abuse-patient tested positive for methamphetamines Echo 05/04/2021-EF 35 to 40%. Moderate concentric LVH. Moderate global hypokinesis of left ventricle. Mild mitral regurgitation. Mild pulmonary hypertension. Echocardiogram reviewed (08/27/2020): LVEF is 50 to 55%. Mild to moderate concentric LVF. Severe diastolic dysfunction is present (restrictive filling). Right ventricle is mildly hypokinetic. RVSP is 48 mmHg. No valvular abnormalities. Plan: Patient denied any chest pain and EKG shows no acute ischemic changes. Troponins elevated in setting of YE and hypertensive emergency Due to patient's renal function and elevated LFTs recommend continuing medical management Continue heparin drip and nitro drip No beta-blockers due to cocaine use Patient seen in conjunction with Dr. Rizvi who agrees with this plan of care - Patient Problems (1) ARF (acute renal failure) Current Visit: Yes Status: Acute (2) Elevated d-dimer Current Visit: Yes Status: Acute (3) LFT elevation Current Visit: Yes Status: Acute (4) NSTEMI (non-ST elevated myocardial infarction) Current Visit: Yes Status: Acute (5) Polysubstance abuse Current Visit: Yes Status: Acute (6) SOB (shortness of breath) Current Visit: Yes Status: Acute (7) Hypertension Current Visit: Yes Status: Chronic (8) Noncompliance with medication regimen Current Visit: Yes Status: Chronic Subjective Date of service: 05/05/21 Principal diagnosis: Hypertensive urgency, NSTEMI, YE Interval history: Patient is now confused, agitated and now restrained Sinus 93 with PVCs Objective Vital Signs Pulse Resp BP BP Pulse Ox 05/05/21 09:45 91 H 34 H 118/82 96 05/05/21 09:31 91 H 18 135/78 96 05/05/21 09:15 93 H 27 H 119/80 97 05/05/21 09:00 22 85/69 92 05/05/21 08:45 93 H 36 H 118/80 93 05/05/21 08:31 92 H 28 H 101/63 94 05/05/21 08:15 91 H 28 H 123/79 97 05/05/21 08:01 95 H 15 101/81 97 05/05/21 07:45 92 H 31 H 124/75 95 05/05/21 07:31 93 H 34 H 128/88 92 05/05/21 07:15 120 H 38 H 146/79 97 05/05/21 07:01 95 H 35 H 142/91 97 05/05/21 06:45 93 H 30 H 144/97 96 05/05/21 06:39 93 H 28 H 154/94 97 05/05/21 06:31 89 34 H 150/93 97 05/05/21 06:15 89 31 H 149/107 96 05/05/21 06:01 96 H 26 H 146/107 96 05/05/21 05:45 83 31 H 151/103 97 05/05/21 05:31 89 27 H 152/99 97 05/05/21 05:15 99 H 31 H 142/98 96 05/05/21 05:01 96 H 33 H 136/86 92 05/05/21 04:59 98 H 35 H 136/86 95 05/05/21 04:50 100 H 27 H 139/92 96 05/05/21 04:45 98 H 28 H 145/94 95 05/05/21 04:31 97 H 27 H 139/92 96 05/05/21 04:15 101 H 28 H 133/89 94 05/05/21 04:01 99 H 26 H 128/86 94 05/05/21 03:45 102 H 26 H 147/94 98 05/05/21 03:31 96 H 28 H 150/102 98 05/05/21 03:24 95 H 31 H 145/101 98 05/05/21 03:15 97 H 30 H 147/97 97 05/05/21 03:01 94 H 28 H 141/94 97 05/05/21 02:45 94 H 28 H 146/93 99 05/05/21 02:31 93 H 26 H 141/100 98 05/05/21 02:15 91 H 25 H 151/98 99 05/05/21 02:01 98 H 30 H 157/101 99 05/05/21 01:45 85 29 H 142/96 99 05/05/21 01:43 100 H 28 H 142/96 99 05/05/21 01:31 85 30 H 141/91 99 05/05/21 01:15 93 H 29 H 145/101 99 05/05/21 01:01 97 H 27 H 141/100 98 05/05/21 00:45 83 29 H 145/101 97 05/05/21 00:31 100 H 34 H 147/97 96 05/05/21 00:15 104 H 24 151/106 95 05/05/21 00:01 104 H 26 H 157/113 97 05/04/21 23:45 104 H 32 H 154/109 97 05/04/21 23:31 112 H 29 H 159/105 93 05/04/21 23:15 96 H 39 H 152/101 100 05/04/21 23:01 113 H 41 H 153/112 98 05/04/21 23:00 104 H 35 H 158/108 92 05/04/21 22:45 105 H 37 H 157/109 97 05/04/21 22:44 106 H 38 H 97 05/04/21 22:27 163/121 97 05/04/21 22:15 99 05/04/21 22:01 165/111 99 05/04/21 21:45 164/121 99 05/04/21 21:31 165/114 96 05/04/21 21:15 146/112 99 05/04/21 21:01 150/104 99 05/04/21 20:45 162/113 100 05/04/21 20:31 164/125 100 05/04/21 20:15 153/118 98 05/04/21 20:01 171/114 96 05/04/21 19:45 159/129 97 05/04/21 19:31 159/129 92 05/04/21 19:15 175/130 85 05/04/21 19:01 193/159 100 05/04/21 18:45 171/136 98 05/04/21 18:31 169/124 100 05/04/21 18:15 170/115 100 05/04/21 18:01 162/116 100 05/04/21 17:45 173/119 100 05/04/21 17:31 166/114 100 05/04/21 17:15 167/107 100 05/04/21 17:01 156/114 100 05/04/21 16:45 186/120 100 05/04/21 16:30 149/113 100 05/04/21 16:16 168/115 100 05/04/21 16:00 155/119 100 05/04/21 15:48 186/120 87 05/04/21 15:16 177/114 95 05/04/21 15:00 160/106 100 05/04/21 14:46 169/103 99 05/04/21 14:30 160/108 100 05/04/21 14:16 167/106 98 05/04/21 14:00 154/94 95 05/04/21 13:46 94 H 27 H 160/106 95 05/04/21 13:30 88 22 164/119 100 05/04/21 13:22 93 H 30 H 98 05/04/21 13:14 89 22 162/116 84 05/04/21 13:10 85 18 164/117 87 05/04/21 13:05 89 16 163/107 86 05/04/21 13:00 14 173/100 94 05/04/21 12:46 21 193/135 97 05/04/21 12:43 17 193/135 96 - Physical Examination General: Other (Altered mental status, agitated) HEENT: Positive: PERRL Neck: Positive: trachea midline Cardiac: Positive: Reg Rate and Rhythm Lungs: Positive: Normal Breath Sounds Neuro: Positive: Other (Altered mental status) Abdomen: Positive: Soft Skin: Negative: Rash, Suspicious Lesions, Ulceration Extremities: Present: upper extr. pulses. Absent: edema - Labs and Meds Comprehensive Metabolic Panel 05/05/21 Range/Units 03:40 Sodium 140 (137-145) mmol/L Potassium 3.3 L (3.6-5.0) mmol/L Chloride 104.8 (98-107) mmol/L Carbon Dioxide 22 (22-30) mmol/L BUN 59 H (9-20) mg/dL Creatinine 2.6 H (0.8-1.3) mg/dL Glucose 139 H (75-100) mg/dL Calcium 8.4 (8.4-10.2) mg/dL - Imaging and Cardiology Echo: report reviewed - Telemetry EKG Rhythm: Sinus Rhythm - EKG Sinus rhythms and dysrhythmias: sinus rhythm Ventricular dysrhythmias: ventricular premature com Chamber hypertrophy or enlargement: left ventricular hypertro
--- NOTE | 2021-05-05 13:48 | Progress Note ---
Assessment and Plan Assessment and plan: NSTEMI Acute kidney injury. Atrial fibrillation Cardiomyopathy. Echocardiogram from 08/2020 revealed LVEF is 50 to 55%. Mild to moderate concentric LVF. Severe diastolic dysfunction is present (restrictive filling). Right ventricle is mildly hypokinetic. RVSP is 48 mmHg. No valvular abnormalities. Accelerated hypertension History of hepatitis C Elevated D-dimer. Low probability for PE seen on VQ scan Tobacco abuse Polysubstance abusepatient with positive methamphetamines and has a history of cocaine use 05/04/2021. Cardiology was considering patient for [employer]. However, patient with elevated creatinine therefore will hold off on cath evaluation. Nephrology consultation for acute kidney injury. Etiology likely secondary to vasomotor nephropathy/dehydration. We will start IV fluid hydration. Check renal ultrasound to rule out obstructive uropathy. We will resume home medications for the accelerated hypertension 05/05/2021. Echocardiogram reveals EF 35-40% with moderate concentric left ventricular hypertrophy. Moderate global hypokinesis of left ventricle. Mild mitral regurgitation. Mild pulmonary hypertension. Troponins are believed to be elevated in the setting of acute kidney injury. No beta-blockers due to cocaine use continue heparin and nitro drip. Continue CIWA protocol. Await urine studies History Interval history: No new issues overnight. Hospitalist Physical - Constitutional Vitals: Temp Pulse Resp BP Pulse Ox 98.9 F 91 H 34 H 118/82 96 05/04/21 05:09 05/05/21 09:45 05/05/21 09:45 05/05/21 09:45 05/05/21 09:45 General appearance: Present: no acute distress - EENT Eyes: Present: PERRL, EOM intact ENT: hearing intact, clear oral mucosa, dentition normal - Neck Neck: Present: supple, normal ROM - Respiratory Respiratory effort: normal Respiratory: bilateral: CTA - Cardiovascular Rhythm: regular Heart Sounds: Present: S1 & S2. Absent: gallop, rub - Extremities Extremities: no ischemia, No edema, Full ROM - Abdominal General gastrointestinal: soft, non-tender, non-distended, normal bowel sounds - Integumentary Integumentary: Present: clear, warm, dry - Neurologic Neurologic: CNII-XII intact, moves all extremities HEART Score - HEART Score EKG: Non-specific Age: 45-65 Risk factors: 1-2 risk factors Troponin: Troponin T 1.400 ng/mL (0.00-0.029) H* 05/04/21 13:34 Troponin: 1-3x normal limit Results - Labs CBC & Chem 7: 05/04/21 10:13 05/05/21 03:40 Labs: Laboratory Last Values WBC 12.9 K/mm3 (4.5-11.0) H 05/04/21 07:25 RBC 3.04 M/mm3 (3.65-5.03) L 05/04/21 07:25 Hgb 8.8 gm/dl (11.8-15.2) L 05/04/21 10:13 Hct 26.6 % (35.5-45.6) L 05/04/21 10:13 MCV 93 fl (84-94) 05/04/21 07:25 MCH 31 pg (28-32) 05/04/21 07:25 MCHC 34 % (32-34) 05/04/21 07:25 RDW 15.4 % (13.2-15.2) H 05/04/21 07:25 Plt Count 185 K/mm3 (140-440) 05/04/21 10:13 Lymph % (Auto) 11.4 % (13.4-35.0) L 05/04/21 07:25 [place] % (Auto) 10.1 % (0.0-7.3) H 05/04/21 07:25 Eos % (Auto) 0.1 % (0.0-4.3) 05/04/21 07:25 Baso % (Auto) 0.4 % (0.0-1.8) 05/04/21 07:25 Lymph # (Auto) 1.5 K/mm3 (1.2-5.4) 05/04/21 07:25 [place] # (Auto) 1.3 K/mm3 (0.0-0.8) H 05/04/21 07:25 Eos # (Auto) 0.0 K/mm3 (0.0-0.4) 05/04/21 07:25 Baso # (Auto) 0.1 K/mm3 (0.0-0.1) 05/04/21 07:25 Seg Neutrophils % 78.0 % (40.0-70.0) H 05/04/21 07:25 Seg Neutrophils # 10.0 K/mm3 (1.8-7.7) H 05/04/21 07:25 PT 15.1 Sec. (12.2-14.9) H 05/04/21 07:25 INR 1.07 (0.87-1.13) 05/04/21 07:25 APTT 31.9 Sec. (24.2-36.6) 05/04/21 07:25 D-Dimer 579.49 ng/mlDDU (0-234) H 05/04/21 07:25 Heparin Anti-Xa Level 0.10 U.I./ml (0.3-0.7) L 05/05/21 11:28 Sodium 140 mmol/L (137-145) 05/05/21 03:40 Potassium 3.3 mmol/L (3.6-5.0) L 05/05/21 03:40 Chloride 104.8 mmol/L (98-107) 05/05/21 03:40 Carbon Dioxide 22 mmol/L (22-30) 05/05/21 03:40 Anion Gap 17 mmol/L 05/05/21 03:40 BUN 59 mg/dL (9-20) H 05/05/21 03:40 Creatinine 2.6 mg/dL (0.8-1.3) H 05/05/21 03:40 Estimated GFR 26 ml/min 05/05/21 03:40 BUN/Creatinine Ratio 23 % 05/05/21 03:40 Glucose 139 mg/dL (75-100) H 05/05/21 03:40 Calcium 8.4 mg/dL (8.4-10.2) 05/05/21 03:40 Magnesium 2.20 mg/dL (1.7-2.3) 05/04/21 08:42 Total Bilirubin 1.50 mg/dL (0.1-1.2) H 05/04/21 07:25 AST 519 units/L (5-40) H 05/04/21 07:25 ALT 475 units/L (7-56) H 05/04/21 07:25 Alkaline Phosphatase 108 units/L (35-129) 05/04/21 07:25 Total Creatine Kinase 406 units/L (55-170) H 05/04/21 08:42 Troponin T 1.400 ng/mL (0.00-0.029) H* 05/04/21 13:34 Total Protein 7.2 g/dL (6.3-8.2) 05/04/21 07:25 Albumin 3.9 g/dL (3.9-5) 05/04/21 07:25 Albumin/Globulin Ratio 1.2 % 05/04/21 07:25 Triglycerides 62 mg/dL (2-149) 05/04/21 07:25 Cholesterol 140 mg/dL (50-199) 05/04/21 07:25 LDL Cholesterol Direct 89 mg/dL (50-130) 05/04/21 07:25 HDL Cholesterol 48 mg/dL (40-59) 05/04/21 07:25 Cholesterol/HDL Ratio 2.91 % 05/04/21 07:25 Urine Color Yellow (Yellow) 05/05/21 09:57 Urine Turbidity Slightly-cloudy (Clear) 05/05/21 09:57 Urine pH 5.0 (5.0-7.0) 05/05/21 09:57 Ur Specific [place] 1.014 (1.003-1.030) 05/05/21 09:57 Urine Protein <15 mg/dl mg/dL (Negative) 05/05/21 09:57 Urine Glucose (UA) Neg mg/dL (Negative) 05/05/21 09:57 Urine Ketones Neg mg/dL (Negative) 05/05/21 09:57 Urine Blood Neg (Negative) 05/05/21 09:57 Urine Nitrite Neg (Negative) 05/05/21 09:57 Urine Bilirubin Neg (Negative) 05/05/21 09:57 Urine Urobilinogen < 2.0 mg/dL (<2.0) 05/05/21 09:57 Ur Leukocyte Esterase Neg (Negative) 05/05/21 09:57 Urine WBC (Auto) 3.0 /HPF (0.0-6.0) 05/05/21 09:57 Urine RBC (Auto) < 1.0 /HPF (0.0-6.0) 05/05/21 09:57 Urine Mucus Few /HPF 05/05/21 09:57 Urine Opiates Screen Negative 05/04/21 Unknown Urine Methadone Screen Negative 05/04/21 Unknown Ur Barbiturates Screen Negative 05/04/21 Unknown Ur Phencyclidine Scrn Negative 05/04/21 Unknown Ur Amphetamines Screen Positive 05/04/21 Unknown U Benzodiazepines Scrn Negative 05/04/21 Unknown Urine Cocaine Screen Negative 05/04/21 Unknown U Marijuana (THC) Screen Negative 05/04/21 Unknown Drugs of Abuse Note Disclamer 05/04/21 Unknown Hepatitis A IgM Ab Non-reactive (NonReactive) 05/05/21 03:40 Hep Bs Antigen Non-reactive (Negative) 05/05/21 03:40 Hep B Core IgM Ab Non-reactive (NonReactive) 05/05/21 03:40 Hepatitis C Antibody Reactive (NonReactive) A 05/05/21 03:40 Active Medications - Current Medications Current Medications: Generic Name Dose Route Start Last Admin Trade Name Freq PRN Reason Stop Dose Admin Acetaminophen 650 mg 05/04/21 12:34 Acetaminophen 325 Mg Tab PO Q4H PRN Pain MILD(1-3)/Fever >100.5/MARIA Hydrocodone Bitart/Acetaminophen 2 each 05/04/21 12:34 Hydrocodone/Acetaminophen 5-325 Mg Tab PO Q6H PRN Pain, Moderate (4-6) Aspirin 81 mg 05/05/21 10:00 05/05/21 11:12 Aspirin 81 Mg Tab Chew PO 05/05/21 15:00 Not Given ONCE@1000 [facility] Famotidine 20 mg 05/04/21 14:00 05/05/21 11:12 Famotidine 20 Mg Tab PO Not Given QDAY [facility] Heparin Sodium (Porcine) 3,300 unit 05/04/21 09:00 05/04/21 21:06 Heparin 10,000 Units/10 Ml Vial 40 unit/kg (3300 unit) 3,300 unit IV Administration Q6H PRN Anti-Xa Assay < 0.1 units/ml Hydralazine HCl 50 mg 05/04/21 14:00 05/05/21 11:11 Hydralazine 25 Mg Tab PO Not Given Q8HR [facility] Heparin Sodium/Sodium Chloride 25,000 unit in 500 mls @ 20 mls/hr 05/04/21 09:00 05/05/21 13:15 Heparin/ 0.45% Nacl-25,000 Unit/500 Ml IV Infused TITRATE RISHI Titration Protocol 1,000 UNITS/HR Nitroglycerin/Dextrose 50 mg in 250 mls @ 3 mls/hr 05/04/21 10:00 05/05/21 04:57 Tridil Drip 50mg/250ml IV 170 mcg/min TITR RISHI 51 mls/hr Titration Protocol 10 MCG/MIN Lorazepam 0.5 mg 05/04/21 15:46 05/04/21 21:51 Lorazepam 2 Mg/Ml Vial IV 0.5 mg Q4H PRN Administration Anxiety Lorazepam 2 mg 05/04/21 23:15 05/05/21 10:10 Lorazepam 2 Mg/Ml Vial IV 2 mg Q1HR PRN Administration CIWA-Ar 8-15 Lorazepam 4 mg 05/04/21 23:15 05/05/21 10:00 Lorazepam 2 Mg/Ml Vial IV 4 mg Q1HR PRN Administration CIWA-Ar 16-25 Lorazepam 4 mg 05/04/21 23:15 Lorazepam 2 Mg/Ml Vial IV Q15MIN PRN CIWA-Ar >25 Metoprolol Succinate 25 mg 05/05/21 10:00 05/05/21 11:12 Metoprolol Succinate Xl 25 Mg Tab PO Not Given QDAY [facility] Morphine Sulfate 2 mg 05/04/21 12:34 Morphine 4 Mg/1 Ml Inj IV Q4H PRN Pain , Severe (7-10) Nifedipine 60 mg 05/04/21 22:00 05/05/21 11:12 Nifedipine Xl 60 Mg Tab PO Not Given Q12HR [facility] Ondansetron HCl 4 mg 05/04/21 12:34 05/04/21 21:51 Ondansetron 4 Mg/2 Ml Inj IV 4 mg Q8H PRN Administration Nausea And Vomiting Sodium Chloride 10 ml 05/04/21 22:00 05/05/21 11:12 Sodium Chloride 0.9% 10 Ml Flush Syringe IV Not Given BID RISHI Sodium Chloride 10 ml 05/04/21 12:34 Sodium Chloride 0.9% 10 Ml Flush Syringe IV PRN PRN LINE FLUSH
[2021-05-05] MEDS ORDERED: KETAMINE 500 MG/5 ML VIAL MDV ONE (14:43)
[2021-05-05] MEDS ORDERED: ROCURONIUM 50 MG/5 ML INJ IV ONE ×2 (14:46→14:49)
--- NOTE | 2021-05-05 15:00 | Procedure Note ---
Date of procedure: 05/05/21 Pre-op diagnosis: Acute respiratory failure Post-op diagnosis: same Procedure: The patient was evaluated in the emergency department for symptoms described in the history of present illness. He/she was evaluated in the context of the global COVID-19 pandemic, which necessitated consideration that the patient might be at risk for infection with the virus that causes COVID-19. Institutional protocols and algorithms that pertain to the evaluation of darcie ents at risk for COVID-19 are in a state of rapid change based on information released by regulatory bodies including the CDC and federal and state organizations. These policies and algorithms were followed during the patient's care in the emergency department. Please note that these policies, procedures and recommendations changed on a rapid basis. Emergency room assistance requested by the treating hospital physician, Dr. Yañez, acute respiratory failure. To provide a consent is provided for acute respiratory failure, requiring intubation. Upon my initial evaluation, patient in acute respiratory failure, not protecting airway, breathing sonorously, and hypoxic. Patient started on nasal cannula at 15 L/min, and receives ylo-dherp-shzw ventilation, with a Peep valve, at 5 cc. Oral airways inserted by respiratory therapist Grupo under my direct supervision, and patient receives uja-bzogo-[id number] ventilation, to achieve an O2 saturation of 100%. He is induced with 200 mg of ketamine, and paralyzed with 100 mg of rocuronium. Using a curved S4 laryngoscope blade, a 7.5 endotracheal tube was inserted into the trachea, using a gum bougie elastic catheter. The patient tolerated this procedure well, and there were no obvious complications. We will defer to the hospital/inpatient team to follow-up on post procedure x- ray, initiate post intubation sedation package, and up triaged this patient to the intensive care unit, and obtain critical care consultation for assistance with ventilator management. The patient was intubated in the aforementioned fashion, and tolerated the procedure well. Post intubation management as per the primary team Anesthesia: other (Rapid sequence induction) Surgeon: RIKY HOLT Rejected Items Clerk: KIERA MCCALL Estimated blood loss: none Condition: critical Disposition: ICU
--- NOTE | 2021-05-05 15:03 | Ultrasound Report ---
ULTRASOUND RENAL INDICATION / CLINICAL INFORMATION: YE. COMPARISON: None available. FINDINGS: Technically difficult exam. RIGHT KIDNEY: Length = 10.2 cm. - Echogenicity: Normal. - Cortical Thickness: Normal. - Hydronephrosis: None. - Cyst / Mass: None. - Stones: None seen. LEFT KIDNEY: Length = 10.5 cm. - Echogenicity: Normal. - Cortical Thickness: Normal. - Hydronephrosis: None. - Cyst / Mass: Hyperechoic mass within the upper pole measuring 1.7 x 1.2 x 1.7 cm. - Stones: None seen. URINARY BLADDER: No significant abnormality. FREE FLUID: None. ADDITIONAL FINDINGS: Incidental finding of cholelithiasis. IMPRESSION: 1. Technically difficult exam due to combative patient. 2. 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 Further evaluat ion with multi space CT or follow-up ultrasound at 6 months is recommended. 3. Incidental finding of cholelithiasis. Scribed by: Radha Rocha RDMS, RVT Scribed: 05/05/2021 1:33 PM I have reviewed the images, agree with this report, and edited this report as needed. Signer Name: Carter Bill MD Signed: 05/05/2021 2:59 PM Workstation Name: [email or web address]
[2021-05-05] MEDS ORDERED: fentaNYL 100 MCG/2 ML INJ IV PRN (15:21)
[2021-05-05] MEDS ORDERED: LIP THERAPY VASELINE TP PRN (15:21)
[2021-05-05] MEDS ORDERED: MINERAL OIL/PETROLATUM, WHITE OPHTH OINT 3.5 GM OU PRN (15:21)
--- NOTE | 2021-05-05 15:21 | Consultation ---
History of Present Illness Consult date: 05/05/21 Requesting physician: SALENA HENAO Reason for consult: other (acute hypoxemic resp failure; NSTEMI; agitation) History of present illness: HISTORY PER MEDICAL RECORDS 56-year-old male with a past medical history of smoking, A. fib, hypertension, and chronic medication noncompliance and homelessness presents to the hospital with complaints of dyspnea exertion x1 month progressively worsening for last 3 days. Patient also having intermittent left-sided chest tightness with activity. Patient complains of a persistent cough without fever. He is unvaccinated for COVID. Patient was admitted here August 2020 for bilateral pneumonia with hypoxia and was COVID-negative at that time. Patient was seen in the ED April 12 for chest pain and subsequently discharged with a refill his medications. Patient never filled the prescriptions and states he has not taking any of his meds for the past year because he cannot afford medications. He denies previous history of stress test. Patient denies any cough or cold- like symptoms. No headache or visual disturbances. Patient denies any associated shortness of breath or diaphoresis. Patient was awaiting a telemetry bed. He had been on a CIWA protocol. He devel oped extreme agitation, tachycardia, tachypnea with acute desaturations. A decision was made to intubate him, by hospital medicine service. A critical care consult was placed for ventilator management. Patient was seen and examined. Vitals, labs, medications, chart and imaging reviewed. He was just intubated, remains unresponsive. Discussed with respiratory and nursing care staff who are at the bedside. Past History Past Medical History: hypertension Past Surgical History: No surgical history Social history: smoking, other (cocaine) Family history: CAD Medications and Allergies Allergies Allergy/AdvReac Type Severity Reaction Status Date / Time No Known Allergies Allergy Verified 09/11/20 10:02 Home Medications Medication Instructions Recorded Confirmed Last Taken Type Cefpodoxime Proxetil 200 mg PO Q12H #10 tablet 09/11/20 Unknown Rx Famotidine [Pepcid] 20 mg PO BID #30 tablet 04/13/21 Unknown Rx Losartan [Cozaar] 100 mg PO QDAY #60 tablet 04/13/21 Unknown Rx Metoprolol Xl [Metoprolol 25 mg PO QDAY #30 tablet 04/13/21 Unknown Rx SUCCINATE ER TAB] NIFEdipine XL [Procardia Xl] 60 mg PO Q12HR #60 tablet 04/13/21 Unknown Rx hydrALAZINE [Apresoline TAB] 50 mg PO Q8HR #180 tablet 04/13/21 Unknown Rx Active Meds: Active Medications Acetaminophen (Acetaminophen 325 Mg Tab) 650 mg PO Q4H PRN PRN Reason: Pain MILD(1-3)/Fever >100.5/MARIA Hydrocodone Bitart/Acetaminophen (Hydrocodone/Acetaminophen 5-325 Mg Tab) 2 each PO Q6H PRN PRN Reason: Pain, Moderate (4-6) Famotidine (Famotidine 20 Mg Tab) 20 mg PO QDAY RISHI Last Admin: 05/05/21 11:12 Dose: Not Given Heparin Sodium (Porcine) (Heparin 10,000 Units/10 Ml Vial) 3,300 unit 40 unit/kg (3300 unit) IV Q6H PRN PRN Reason: Anti-Xa Assay < 0.1 units/ml Last Admin: 05/04/21 21:06 Dose: 3,300 unit Hydralazine HCl (Hydralazine 25 Mg Tab) 50 mg PO Q8HR RISHI Last Admin: 05/05/21 15:04 Dose: Not Given Heparin Sodium/Sodium Chloride (Heparin/ 0.45% Nacl-25,000 Unit/500 Ml) 25,000 unit in 500 mls @ 20 mls/hr IV TITRATE RISHI; Protocol Last Titration: 05/05/21 13:15 Dose: Infused Nitroglycerin/Dextrose (Tridil Drip 50mg/250ml) 50 mg in 250 mls @ 3 mls/hr IV TITR RISHI; Protocol Last Titration: 05/05/21 04:57 Dose: 170 mcg/min, 51 mls/hr Lorazepam (Lorazepam 2 Mg/Ml Vial) 0.5 mg IV Q4H PRN PRN Reason: Anxiety Last Admin: 05/04/21 21:51 Dose: 0.5 mg Lorazepam (Lorazepam 2 Mg/Ml Vial) 2 mg IV Q1HR PRN PRN Reason: Conrado 8-15 Last Admin: 05/05/21 09:10 Dose: 2 mg Lorazepam (Lorazepam 2 Mg/Ml Vial) 4 mg IV Q1HR PRN PRN Reason: Conrado - Last Admin: 05/05/21 10:00 Dose: 4 mg Lorazepam (Lorazepam 2 Mg/Ml Vial) 4 mg IV Q15MIN PRN PRN Reason: CIWA-Ar >25 Last Admin: 05/05/21 12:10 Dose: 4 mg Metoprolol Succinate (Metoprolol Succinate Xl 25 Mg Tab) 25 mg PO QDAY [facility] Last Admin: 05/05/21 11:12 Dose: Not Given Morphine Sulfate (Morphine 4 Mg/1 Ml Inj) 2 mg IV Q4H PRN PRN Reason: Pain , Severe (7-10) Nifedipine (Nifedipine Xl 60 Mg Tab) 60 mg PO Q12HR [facility] Last Admin: 05/05/21 11:12 Dose: Not Given Ondansetron HCl (Ondansetron 4 Mg/2 Ml Inj) 4 mg IV Q8H PRN PRN Reason: Nausea And Vomiting Last Admin: 05/04/21 21:51 Dose: 4 mg Sodium Chloride (Sodium Chloride 0.9% 10 Ml Flush Syringe) 10 ml IV BID [facility] Last Admin: 05/05/21 11:12 Dose: Not Given Sodium Chloride (Sodium Chloride 0.9% 10 Ml Flush Syringe) 10 ml IV PRN PRN PRN Reason: LINE FLUSH Review of Systems ROS unobtainable: due to endotracheal tube, due to mental status Physical Examination Vital signs: Vital Signs Temp Pulse Resp BP Pulse Ox 98.9 F 86 18 167/127 98 05/04/21 05:09 05/04/21 05:09 05/04/21 05:09 05/04/21 05:09 05/04/21 05:09 General appearance: no acute distress, other (orally intuabted, sedated) Eyes: non-icteric ENT: oropharynx moist Neck: supple, no lymphadenopathy, no JVD Effort: normal Ascultation: Bilateral: clear, diminished breath sounds Cardiovascular: irregular rhythm, other (S1,S2) Gastrointestinal: normoactive bowel sounds, soft, non-tender, non-distended Extremities: no cyanosis, no edema, pulses normal unable to assess (sedated) other Results - Laboratory Findings CBC and BMP: 05/04/21 10:13 05/05/21 03:40 PT/INR, D-dimer PT 15.1 Sec. (12.2-14.9) H 05/04/21 07:25 INR 1.07 (0.87-1.13) 05/04/21 07:25 D-Dimer 579.49 ng/mlDDU (0-234) H 05/04/21 07:25 Abnormal lab findings: Abnormal Labs 05/04/21 05/04/21 05/04/21 07:25 07:25 07:25 WBC 12.9 H RBC 3.04 L Hgb 9.5 L Hct 28.4 L RDW 15.4 H Lymph % (Auto) 11.4 L [place] % (Auto) 10.1 H [place] # (Auto) 1.3 H Seg Neutrophils % 78.0 H Seg Neutrophils # 10.0 H PT 15.1 H D-Dimer Heparin Anti-Xa Level Sodium 135 L Potassium BUN 65 H Creatinine 3.4 H Glucose 118 H Total Bilirubin 1.50 H AST 519 H ALT 475 H Total Creatine Kinase Troponin T 1.300 H* Hepatitis C Antibody 05/04/21 05/04/21 05/04/21 07:25 08:42 08:42 WBC RBC Hgb Hct RDW Lymph % (Auto) Will[place] % (Auto) [place] # (Auto) Seg Neutrophils % Seg Neutrophils # PT D-Dimer 579.49 H Heparin Anti-Xa Level Sodium Potassium BUN Creatinine Glucose Total Bilirubin AST ALT Total Creatine Kinase 406 H Troponin T 1.230 H* Hepatitis C Antibody 05/04/21 05/04/21 05/04/21 10:13 13:34 18:14 WBC RBC Hgb 8.8 L Hct 26.6 L RDW Lymph % (Auto) [place] % (Auto) [place] # (Auto) Seg Neutrophils % Seg Neutrophils # PT D-Dimer Heparin Anti-Xa Level < 0.10 L Sodium Potassium BUN Creatinine Glucose Total Bilirubin AST ALT Total Creatine Kinase Troponin T 1.400 H* Hepatitis C Antibody 05/05/21 05/05/21 05/05/21 03:40 03:40 03:40 WBC RBC Hgb Hct RDW Lymph % (Auto) [place] % (Auto) [place] # (Auto) Seg Neutrophils % Seg Neutrophils # PT D-Dimer Heparin Anti-Xa Level 0.11 L Sodium Potassium 3.3 L BUN 59 H Creatinine 2.6 H Glucose 139 H Total Bilirubin AST ALT Total Creatine Kinase Troponin T Hepatitis C Antibody Reactive A 05/05/21 11:28 WBC RBC Hgb Hct RDW Lymph % (Auto) [place] % (Auto) [place] # (Auto) Seg Neutrophils % Seg Neutrophils # PT D-Dimer Heparin Anti-Xa Level 0.10 L Sodium Potassium BUN Creatinine Glucose Total Bilirubin AST ALT Total Creatine Kinase Troponin T Hepatitis C Antibody - Diagnostic Findings Chest x-ray: image reviewed (ETT in position, right perihilar infiltrate) Additional studies: Echocardiogram from 05/04/2021 revealed LVEF is 35 to 40%. Moderate global hypokinesis Severe diastolic dysfunction is present (restrictive filling). RVSP is 39 mmHg. No valvular abnormalities. V/Q scan 05/04/2021- Low probability scan Assessment and Plan Acute hypoxic resp failure on MVS COVID positive NSTEMI Acute kidney injury Cardiomyopathy EF 35-40% History of hepatitis C Elevated D-dimer. Low probability for PE seen on VQ scan Tobacco abuse Polysubstance abusepatient with positive methamphetamines and has a history of cocaine use Anemia - VAP bundle addressed, aspiration precautions - titrate supplemental oxygen to keep SpO2 88-90% - Bronchodilators with pulmonary hygiene per RT -Place OGT tube, once position is confirmed initiate enteric nutritional support - continue accuchecks with glycemic control per SSI (While critically ill target blood glucose of 140-180 mg/dL; avoid hypoglycemia) - avoid nephrotoxins, renally dose all medications - avoid benzodiazepines, reduce the possibility of delirium - sedation target for RASS 0 to -1 -Propofol and Fentanyl ordered - prn analgesia per pain score - Maintenance of sleep-wake cycle, avoid delirium - Stress ulcer prophylaxis -Therapeutic anticoagulation- on therapeutic heparin infusion - mobility, off loading and frequent turning per facility protocol for pressure ulcer prevention - Monitor hemodynamics closely -Supportive transfusions as clinically indicated to keep HgB >7g/dL - continue other care per attending / other consultants COVID SPECIFIC INTERVENTIONS - Appears to have incidental COVID infection- Remdesivir not administered secondary to renal failure - Monitor inflammatory markers per facility protocol - ferritin, D-dimer, CRP - therapeutic anticoagulation per system Protocol based on d-dimer and clinical considerations -on therapeutic heparin for NSTEMI - Contact and airborne isolation -Start Dexamethasone P/F ratio is 140 CONDITION: CRITICAL PROGNOSIS: GUARDED CODE STATUS: FULL CODE The high probability of a clinically significant, sudden or life-threatening deterioration of the [respiratory, cardiovascular & neurologic ] system(s) required my full and direct attention, intervention and personal management. The aggregate critical care time was [35] minutes without overlap. Time includes spent on; [x] Data Review and interpretation [x] Patient assessment and monitoring of vital signs [x] Documentation [x] Medication orders and management
--- NOTE | 2021-05-05 15:53 | XRay Report ---
CHEST 1 VIEW 05/05/2021 2:45 PM INDICATION / CLINICAL INFORMATION: ETT placement. COMPARISON: 05/04/2021 FINDINGS: SUPPORT DEVICES: Tip of endotracheal tube is approximately 3 cm above the chano. HEART / MEDIASTINUM: No significant abnormality. LUNGS / PLEURA: There has been development of perihilar airspace opacity on the right. There is mild patchy airspace opacity in the left lower lung zone. No pneumothorax. ADDITIONAL FINDINGS: No significant additional findings. IMPRESSION: 1. Endotracheal tube in expected position. 2. There is perihilar airspace opacity on the right and some patchy airspace opacity in the left lowe r lung zone. Signer Name: Pradip Jackman MD Signed: 05/05/2021 3:49 PM Workstation Name: [id number]
[2021-05-05] MEDS: fentaNYL DRIP Premix 2,000 MCG/100 ML BAG IV SCH (17:13)
[2021-05-05 17:20] LABS: ABG Base Excess -2.1 mmol/L (-2.0-3.0); ABG HCO3 24.4 mmol/L (20.0-26.0); ABG Methemoglobin 0.6 % (0.0-1.5); ABG Oxygen Saturation 98.5 % (95.0-99.0); ABG PCO2 50.3 mm Hg; ABG PH 7.304 pH Units (7.350-7.450); ABG PO2 140.8 mm Hg (80.0-90.0)
[2021-05-05] MEDS ORDERED: FAMOTIDINE 20 MG/2 ML INJ IV SCH (22:00)
[2021-05-05] MEDS: HEPARIN/ 0.45% NACL DRIP 25,000 UNIT/500 ML BAG IV SCH (23:45)
[2021-05-06] MEDS: hydrALAZINE 25 MG TAB PO SCH ×3 (00:22→16:13)
[2021-05-06] MEDS: NIFEdipine XL 60 MG TAB PO SCH ×2 (00:23→12:58)
[2021-05-06] MEDS: SENNOSIDES/DOCUSATE SODIUM 8.6/50 MG TAB FEEDTUBE SCH ×2 (00:23→12:55)
[2021-05-06] MEDS: FAMOTIDINE 10 MG TAB PO SCH ×2 (00:23→12:56)
[2021-05-06 04:05] LABS: Hematocrit 27.8 % (35.5-45.6)
[2021-05-06 06:26] LABS: ABG Base Excess -2.4 mmol/L (-2.0-3.0); ABG HCO3 22.5 mmol/L (20.0-26.0); ABG Methemoglobin 0.5 % (0.0-1.5); ABG Oxygen Saturation 98.7 % (95.0-99.0); ABG PCO2 38.8 mm Hg; ABG PH 7.381 pH Units (7.350-7.450); ABG PO2 143.5 mm Hg (80.0-90.0)
--- NOTE | 2021-05-06 09:45 | XRay Report ---
CHEST 1 VIEW 05/06/2021 7:27 AM INDICATION / CLINICAL INFORMATION: follow up respiratory failure 4th floor hold. COMPARISON: 05/05/2021 FINDINGS: SUPPORT DEVICES: Tip of endotracheal tube is approximately 1.5 cm above the chano. HEART / MEDIASTINUM: There is prominence the cardiac silhouette LUNGS / PLEURA: There are bilateral pulmonary opacities which are predominantly perihilar suggesting edema. There are low lung volumes. No pneumothorax. ADDITIONAL FINDINGS: No significant additional findings. IMPRESSION: 1. There are bilateral perihilar opacities likely representing edema. There are low lung volumes. 2. Tip of endotracheal tube is approximately 1.5 cm above the chano. Signer Name: Pradip Jackman MD Signed: 05/06/2021 9:40 AM Workstation Name: [id number]
--- NOTE | 2021-05-06 09:45 | Progress Note ---
Assessment and Plan Impression * Acute kidney injury --Renal ultrasound: 1.7cm mass hyperechoic mass upper pole left kidney - ?angiomyolipoma * Acute hypoxic respiratory failure * NSTEMI * COVID 19 infection * Hepatitis C * Hypertension * Anemia * Metabolic acidosis * Methamphetamine abuse * Transaminitis Plan: * AM labs are pending * Await labs * Await pending serologies and urine lytes * Renal ultrasound reviewed - will need follow up CT once stable * Continue antiHTN medications * Cardiology recommendations noted * Dose medications for renal function * Avoid potential nephrotoxins * Strict I/O Subjective Date of service: 05/06/21 Principal diagnosis: Hypertensive urgency, NSTEMI, YE Interval history: Patient remains intubated. Objective - Vital Signs Vital signs: Vital Signs - 12hr 05/05/21 05/05/21 05/05/21 21:45 22:00 22:01 Pulse Rate 79 78 Respiratory 20 20 20 Rate Blood Pressure 127/88 119/81 O2 Sat by Pulse 100 100 100 Oximetry 05/05/21 05/05/21 05/05/21 22:15 22:31 22:45 Pulse Rate 77 77 76 Respiratory 20 20 20 Rate Blood Pressure 120/81 119/79 120/83 O2 Sat by Pulse 100 100 100 Oximetry 05/05/21 05/05/21 05/05/21 23:01 23:15 23:31 Pulse Rate 76 76 77 Respiratory 20 20 20 Rate Blood Pressure 125/84 122/85 124/85 O2 Sat by Pulse 100 100 100 Oximetry 05/05/21 05/06/21 05/06/21 23:45 00:01 00:15 Pulse Rate 77 78 78 Respiratory 20 20 20 Rate Blood Pressure 128/87 132/90 135/92 O2 Sat by Pulse 100 100 100 Oximetry 05/06/21 05/06/21 05/06/21 00:22 00:31 00:45 Pulse Rate 78 77 78 Respiratory 20 20 Rate Blood Pressure 115/80 131/88 128/87 O2 Sat by Pulse 100 100 Oximetry 05/06/21 05/06/21 05/06/21 00:51 01:01 01:11 Pulse Rate 78 78 78 Respiratory 20 20 20 Rate Blood Pressure 129/88 131/88 131/88 O2 Sat by Pulse 100 100 100 Oximetry 05/06/21 05/06/21 05/06/21 01:21 01:29 01:31 Pulse Rate 78 79 79 Respiratory 20 20 Rate Blood Pressure 129/88 131/91 O2 Sat by Pulse 100 100 Oximetry 05/06/21 05/06/21 05/06/21 01:41 01:51 02:01 Pulse Rate 83 79 80 Respiratory 20 20 20 Rate Blood Pressure 132/88 133/88 134/89 O2 Sat by Pulse 100 100 100 Oximetry 05/06/21 05/06/21 05/06/21 02:11 02:21 02:31 Pulse Rate 81 80 80 Respiratory 20 20 20 Rate Blood Pressure 136/91 132/93 137/93 O2 Sat by Pulse 100 100 100 Oximetry 05/06/21 05/06/21 05/06/21 02:41 02:51 03:01 Pulse Rate 82 80 80 Respiratory 20 20 20 Rate Blood Pressure 139/91 136/91 137/89 O2 Sat by Pulse 100 100 100 Oximetry 05/06/21 05/06/21 05/06/21 03:11 03:31 03:55 Pulse Rate 81 81 83 Respiratory 20 20 Rate Blood Pressure 133/92 140/93 142/92 O2 Sat by Pulse 100 100 100 Oximetry 05/06/21 05/06/21 05/06/21 04:01 04:31 05:01 Pulse Rate 83 82 83 Respiratory 20 20 21 Rate Blood Pressure 134/90 135/92 144/94 O2 Sat by Pulse 100 100 100 Oximetry 05/06/21 05/06/21 05:31 06:01 Pulse Rate 85 85 Respiratory 21 21 Rate Blood Pressure 149/100 144/93 O2 Sat by Pulse 100 100 Oximetry - General Appearance General appearance: well-developed, well-nourished EENT: ATNC, other (ETT in place) Respiratory: Absent: Rales, Ronchi, Wheezes Cardiology: regular, S1S2 Gastrointestinal: normal, no distended Integumentary: warm and dry - Lab 05/06/21 03:47 05/07/21 03:22 Most recent lab results ABG pH 7.381 pH Units (7.350-7.450) 05/06/21 06:15 ABG pCO2 38.8 mm Hg 05/06/21 06:15 ABG pO2 143.5 mm Hg (80.0-90.0) H 05/06/21 06:15 ABG HCO3 22.5 mmol/L (20.0-26.0) 05/06/21 06:15 ABG O2 Saturation 98.7 % (95.0-99.0) 05/06/21 06:15 Calcium 8.4 mg/dL (8.4-10.2) 05/05/21 03:40 Magnesium 2.20 mg/dL (1.7-2.3) 05/04/21 08:42 Medications & Allergies - Medications Allergies/Adverse Reactions: Allergies No Known Allergies Allergy (Verified 09/11/20 10:02) Home Medications: Home Medications Medication Instructions Recorded Confirmed Last Taken Type Cefpodoxime Proxetil 200 mg PO Q12H #10 tablet 09/11/20 Unknown Rx Famotidine [Pepcid] 20 mg PO BID #30 tablet 04/13/21 Unknown Rx Losartan [Cozaar] 100 mg PO QDAY #60 tablet 04/13/21 Unknown Rx Metoprolol Xl [Metoprolol 25 mg PO QDAY #30 tablet 04/13/21 Unknown Rx SUCCINATE ER TAB] NIFEdipine XL [Procardia Xl] 60 mg PO Q12HR #60 tablet 04/13/21 Unknown Rx hydrALAZINE [Apresoline TAB] 50 mg PO Q8HR #180 tablet 04/13/21 Unknown Rx Active Medications: Generic Name Dose Route Start Last Admin Trade Name Freq PRN Reason Stop Dose Admin Acetaminophen 650 mg 05/04/21 12:34 Acetaminophen 325 Mg Tab PO Q4H PRN Pain MILD(1-3)/Fever >100.5/MARIA Hydrocodone Bitart/Acetaminophen 2 each 05/04/21 12:34 Hydrocodone/Acetaminophen 5-325 Mg Tab PO Q6H PRN Pain, Moderate (4-6) Famotidine 20 mg 05/04/21 14:00 05/05/21 11:12 Famotidine 20 Mg Tab PO Not Given QDAY [facility] Famotidine 10 mg 05/05/21 22:00 05/06/21 00:23 Famotidine 10 Mg Tab PO Not Given BID RISHI Fentanyl 50 mcg 05/05/21 15:21 Fentanyl 100 Mcg/2 Ml Inj IV Q10MIN PRN ANALGESIA Heparin Sodium (Porcine) 3,300 unit 05/04/21 09:00 05/04/21 21:06 Heparin 10,000 Units/10 Ml Vial 40 unit/kg (3300 unit) 3,300 unit IV Administration Q6H PRN Anti-Xa Assay < 0.1 units/ml Hydralazine HCl 50 mg 05/04/21 14:00 05/06/21 05:03 Hydralazine 25 Mg Tab PO Not Given Q8HR RISHI Hydrophilic Ointment 1 applic 05/05/21 15:21 Lip Therapy Vaseline TP Q2HR PRN Dry Lips Heparin Sodium/Sodium Chloride 25,000 unit in 500 mls @ 20 mls/hr 05/04/21 09:00 05/05/21 23:46 Heparin/ 0.45% Nacl-25,000 Unit/500 Ml IV 1,663.2 units/hr TITRATE RISHI 33.264 mls/hr Titration Protocol 1,000 UNITS/HR Nitroglycerin/Dextrose 50 mg in 250 mls @ 3 mls/hr 05/04/21 10:00 05/05/21 04:57 Tridil Drip 50mg/250ml IV 170 mcg/min TITR RISHI 51 mls/hr Titration Protocol 10 MCG/MIN Fentanyl Citrate 2,000 mcg in 100 mls @ 4.082 mls/hr 05/05/21 16:00 05/05/21 20:51 Fentanyl Drip Premix IV 1 mcg/kg/hr TITR RISHI 4.082 mls/hr Titration Protocol 1 MCG/KG/HR Propofol 1,000 mg in 100 mls @ 2.449 mls/hr 05/05/21 16:00 05/05/21 17:12 Diprivan 10 Mg/Ml IV 5 mcg/kg/min TITR RISHI 2.449 mls/hr Administration Protocol 5 MCG/KG/MIN Lorazepam 0.5 mg 05/04/21 15:46 05/04/21 21:51 Lorazepam 2 Mg/Ml Vial IV 0.5 mg Q4H PRN Administration Anxiety Lorazepam 2 mg 05/04/21 23:15 05/05/21 09:10 Lorazepam 2 Mg/Ml Vial IV 2 mg Q1HR PRN Administration CIWA-Ar 8-15 Lorazepam 4 mg 05/04/21 23:15 05/05/21 10:00 Lorazepam 2 Mg/Ml Vial IV 4 mg Q1HR PRN Administration CIWA-Ar 16-25 Lorazepam 4 mg 05/04/21 23:15 05/05/21 12:10 Lorazepam 2 Mg/Ml Vial IV 4 mg Q15MIN PRN Administration CIWA-Ar >25 Metoprolol Succinate 25 mg 05/05/21 10:00 05/05/21 11:12 Metoprolol Succinate Xl 25 Mg Tab PO Not Given QDAY [facility] Morphine Sulfate 2 mg 05/04/21 12:34 Morphine 4 Mg/1 Ml Inj IV Q4H PRN Pain , Severe (7-10) Multi-Ingred Cream/Lotion/Oil/Oint 1 applic 05/05/21 15:21 Mineral Oil/Petrolatum, White Ophth Oint 3.5 Gm OU Q4HR PRN Dry Eye(s) Nifedipine 60 mg 05/04/21 22:00 05/06/21 00:23 Nifedipine Xl 60 Mg Tab PO Not Given Q12HR [facility] Ondansetron HCl 4 mg 05/04/21 12:34 05/04/21 21:51 Ondansetron 4 Mg/2 Ml Inj IV 4 mg Q8H PRN Administration Nausea And Vomiting Senna/Docusate Sodium 1 tab 05/05/21 22:00 05/06/21 00:23 Sennosides/Docusate Sodium 8.6/50 Mg Tab FEEDTUBE Not Given BID [facility] Sodium Chloride 10 ml 05/04/21 22:00 05/06/21 00:23 Sodium Chloride 0.9% 10 Ml Flush Syringe IV Not Given BID RISHI Sodium Chloride 10 ml 05/04/21 12:34 Sodium Chloride 0.9% 10 Ml Flush Syringe IV PRN PRN LINE FLUSH
[2021-05-06] MEDS: fentaNYL DRIP Premix 2,000 MCG/100 ML BAG IV SCH (11:20)
--- NOTE | 2021-05-06 11:43 | Progress Note ---
Assessment and Plan Assessment and plan: NSTEMI Acute hypoxic respiratory failure COVID-19 pneumonia Mild pulmonary hypertension Acute kidney injury. Atrial fibrillation Cardiomyopathy. Echocardiogram from 08/2020 revealed LVEF is 50 to 55%. However, echocardiogram completed on 05/05/2021 reveals EF of 35-40%. Mild to moderate concentric LVF. Severe diastolic dysfunction is present (restrictive filling). Right ventricle is mildly hypokinetic. RVSP is 48 mmHg. No valvular abnormalities. Accelerated hypertension History of hepatitis C Elevated D-dimer. Low probability for PE seen on VQ scan Tobacco abuse Polysubstance abusepatient with positive methamphetamines and has a history of cocaine use 05/04/2021. Cardiology was considering patient for [facility]. However, patient with elevated creatinine therefore will hold off on cath evaluation. Nephrology consultation for acute kidney injury. Etiology likely secondary to vasomotor nephropathy/dehydration. We will start IV fluid hydration. Check renal ultrasound to rule out obstructive uropathy. We will resume home medications for the accelerated hypertension 05/05/2021. Echocardiogram reveals EF 35-40% with moderate concentric left ventricular hypertrophy. Moderate global hypokinesis of left ventricle. Mild mitral regurgitation. Mild pulmonary hypertension. Troponins are believed to be elevated in the setting of acute kidney injury. No beta-blockers due to cocaine use continue heparin and nitro drip. Continue CIWA protocol. Await urine studies 05/06/2021. Patient decompensated yesterday with worsening respiratory failure and difficulty to protect airway. Patient was breathing sonorously, and hypoxic. Patient was intubated and currently is on mechanical ventilation. Patient with AC mode ventilation rate of 20, tidal volume 450, FiO2 40% and PEEP of 6. COVID PCR testing on 05/05/2021 was found to be positive. Echocardiogram completed on this admission shows worsening EF from August 2020. Echocardiogram now reveals moderate concentric left ventricular hypertrophy with moderate global hypokinesis and EF of 35-40%. Mild pulmonary hypertension. The high probability of a clinically significant, sudden or life threatening deterioration of the [respiratory] system(s) required my full and direct attention, intervention and personal management. The aggregate critical care time was [32] minutes. This time is in addition to time spent performing reported procedures but includes the following: [x] Data Review and interpretation [x] Patient assessment and monitoring of vital signs [x] Documentation [x] Medication orders and management History Interval history: Patient decompensated shortly after admission with worsening respiratory failure and difficulty to protect airway. Patient was breathing sonorously, and hypoxic. Hospitalist Physical - Constitutional Vitals: Temp Pulse Resp BP Pulse Ox 98.3 F 89 25 H 147/94 98 05/05/21 21:04 05/06/21 11:15 05/06/21 11:15 05/06/21 11:15 05/06/21 11:15 General appearance: Present: mild distress - EENT Eyes: Present: PERRL, EOM intact ENT: hearing intact, clear oral mucosa, dentition normal - Neck Neck: Present: supple, normal ROM - Respiratory Respiratory effort: normal Respiratory: bilateral: CTA - Cardiovascular Rhythm: regular Heart Sounds: Present: S1 & S2. Absent: gallop, rub - Extremities Extremities: no ischemia, No edema, Full ROM - Abdominal General gastrointestinal: soft, non-tender, non-distended, normal bowel sounds - Integumentary Integumentary: Present: clear, warm, dry - Neurologic Neurologic: CNII-XII intact, moves all extremities HEART Score - HEART Score EKG: Non-specific Age: 45-65 Risk factors: 1-2 risk factors Troponin: Troponin T 1.400 ng/mL (0.00-0.029) H* 05/04/21 13:34 Troponin: 1-3x normal limit Results - Labs CBC & Chem 7: 05/06/21 03:47 05/05/21 03:40 Labs: Laboratory Last Values WBC 12.9 K/mm3 (4.5-11.0) H 05/04/21 07:25 RBC 3.04 M/mm3 (3.65-5.03) L 05/04/21 07:25 Hgb 9.0 gm/dl (11.8-15.2) L 05/06/21 03:47 Hct 27.8 % (35.5-45.6) L 05/06/21 03:47 MCV 93 fl (84-94) 05/04/21 07:25 MCH 31 pg (28-32) 05/04/21 07:25 MCHC 34 % (32-34) 05/04/21 07:25 RDW 15.4 % (13.2-15.2) H 05/04/21 07:25 Plt Count 274 K/mm3 (140-440) 05/06/21 03:47 Lymph % (Auto) 11.4 % (13.4-35.0) L 05/04/21 07:25 [place] % (Auto) 10.1 % (0.0-7.3) H 05/04/21 07:25 Eos % (Auto) 0.1 % (0.0-4.3) 05/04/21 07:25 Baso % (Auto) 0.4 % (0.0-1.8) 05/04/21 07:25 Lymph # (Auto) 1.5 K/mm3 (1.2-5.4) 05/04/21 07:25 [place] # (Auto) 1.3 K/mm3 (0.0-0.8) H 05/04/21 07:25 Eos # (Auto) 0.0 K/mm3 (0.0-0.4) 05/04/21 07:25 Baso # (Auto) 0.1 K/mm3 (0.0-0.1) 05/04/21 07:25 Seg Neutrophils % 78.0 % (40.0-70.0) H 05/04/21 07:25 Seg Neutrophils # 10.0 K/mm3 (1.8-7.7) H 05/04/21 07:25 PT 15.1 Sec. (12.2-14.9) H 05/04/21 07:25 INR 1.07 (0.87-1.13) 05/04/21 07:25 APTT 31.9 Sec. (24.2-36.6) 05/04/21 07:25 D-Dimer 579.49 ng/mlDDU (0-234) H 05/04/21 07:25 Heparin Anti-Xa Level 0.44 U.I./ml (0.3-0.7) 05/06/21 05:58 ABG pH 7.381 pH Units (7.350-7.450) 05/06/21 06:15 ABG pCO2 38.8 mm Hg 05/06/21 06:15 ABG pO2 143.5 mm Hg (80.0-90.0) H 05/06/21 06:15 ABG HCO3 22.5 mmol/L (20.0-26.0) 05/06/21 06:15 ABG O2 Saturation 98.7 % (95.0-99.0) 05/06/21 06:15 ABG O2 Content 9.8 (0.0-44) 05/06/21 06:15 ABG Base Excess -2.4 mmol/L (-2.0-3.0) L 05/06/21 06:15 ABG Hemoglobin 6.9 gm/dl (14.0-18.0) L 05/06/21 06:15 ABG Carboxyhemoglobin 1.5 % (0.0-5.0) 05/06/21 06:15 ABG Methemoglobin 0.5 % (0.0-1.5) 05/06/21 06:15 Oxyhemoglobin 96.8 % (95.0-99.0) 05/06/21 06:15 FiO2 60 % 05/06/21 06:15 Sodium 140 mmol/L (137-145) 05/05/21 03:40 Potassium 3.3 mmol/L (3.6-5.0) L 05/05/21 03:40 Chloride 104.8 mmol/L (98-107) 05/05/21 03:40 Carbon Dioxide 22 mmol/L (22-30) 05/05/21 03:40 Anion Gap 17 mmol/L 05/05/21 03:40 BUN 59 mg/dL (9-20) H 05/05/21 03:40 Creatinine 2.6 mg/dL (0.8-1.3) H 05/05/21 03:40 Estimated GFR 26 ml/min 05/05/21 03:40 BUN/Creatinine Ratio 23 % 05/05/21 03:40 Glucose 139 mg/dL (75-100) H 05/05/21 03:40 Calcium 8.4 mg/dL (8.4-10.2) 05/05/21 03:40 Magnesium 2.20 mg/dL (1.7-2.3) 05/04/21 08:42 Total Bilirubin 1.50 mg/dL (0.1-1.2) H 05/04/21 07:25 AST 519 units/L (5-40) H 05/04/21 07:25 ALT 475 units/L (7-56) H 05/04/21 07:25 Alkaline Phosphatase 108 units/L (35-129) 05/04/21 07:25 Total Creatine Kinase 406 units/L (55-170) H 05/04/21 08:42 Troponin T 1.400 ng/mL (0.00-0.029) H* 05/04/21 13:34 Total Protein 7.2 g/dL (6.3-8.2) 05/04/21 07:25 Albumin 3.9 g/dL (3.9-5) 05/04/21 07:25 Albumin/Globulin Ratio 1.2 % 05/04/21 07:25 Triglycerides 62 mg/dL (2-149) 05/04/21 07:25 Cholesterol 140 mg/dL (50-199) 05/04/21 07:25 LDL Cholesterol Direct 89 mg/dL (50-130) 05/04/21 07:25 HDL Cholesterol 48 mg/dL (40-59) 05/04/21 07:25 Cholesterol/HDL Ratio 2.91 % 05/04/21 07:25 Urine Color Yellow (Yellow) 05/05/21 09:57 Urine Turbidity Slightly-cloudy (Clear) 05/05/21 09:57 Urine pH 5.0 (5.0-7.0) 05/05/21 09:57 Ur Specific [place] 1.014 (1.003-1.030) 05/05/21 09:57 Urine Protein <15 mg/dl mg/dL (Negative) 05/05/21 09:57 Urine Glucose (UA) Neg mg/dL (Negative) 05/05/21 09:57 Urine Ketones Neg mg/dL (Negative) 05/05/21 09:57 Urine Blood Neg (Negative) 05/05/21 09:57 Urine Nitrite Neg (Negative) 05/05/21 09:57 Urine Bilirubin Neg (Negative) 05/05/21 09:57 Urine Urobilinogen < 2.0 mg/dL (<2.0) 05/05/21 09:57 Ur Leukocyte Esterase Neg (Negative) 05/05/21 09:57 Urine WBC (Auto) 3.0 /HPF (0.0-6.0) 05/05/21 09:57 Urine RBC (Auto) < 1.0 /HPF (0.0-6.0) 05/05/21 09:57 Urine Mucus Few /HPF 05/05/21 09:57 Urine Opiates Screen Negative 05/04/21 Unknown Urine Methadone Screen Negative 05/04/21 Unknown Ur Barbiturates Screen Negative 05/04/21 Unknown Ur Phencyclidine Scrn Negative 05/04/21 Unknown Ur Amphetamines Screen Positive 05/04/21 Unknown U Benzodiazepines Scrn Negative 05/04/21 Unknown Urine Cocaine Screen Negative 05/04/21 Unknown U Marijuana (THC) Screen Negative 05/04/21 Unknown Drugs of Abuse Note Disclamer 05/04/21 Unknown Coronavirus (PCR) Positive (Negative) A 05/05/21 08:30 Hepatitis A IgM Ab Non-reactive (NonReactive) 05/05/21 03:40 Hep Bs Antigen Non-reactive (Negative) 05/05/21 03:40 Hep B Core IgM Ab Non-reactive (NonReactive) 05/05/21 03:40 Hepatitis C Antibody Reactive (NonReactive) A 05/05/21 03:40 [place]/IV: Voiding Method Condom Catheter Active Medications - Current Medications Current Medications: Generic Name Dose Route Start Last Admin Trade Name Freq PRN Reason Stop Dose Admin Acetaminophen 650 mg 05/04/21 12:34 Acetaminophen 325 Mg Tab PO Q4H PRN Pain MILD(1-3)/Fever >100.5/MARIA Hydrocodone Bitart/Acetaminophen 2 each 05/04/21 12:34 Hydrocodone/Acetaminophen 5-325 Mg Tab PO Q6H PRN Pain, Moderate (4-6) Famotidine 10 mg 05/06/21 11:30 Famotidine 20 Mg/2 Ml Inj IV BID RISHI Fentanyl 50 mcg 05/05/21 15:21 Fentanyl 100 Mcg/2 Ml Inj IV Q10MIN PRN ANALGESIA Heparin Sodium (Porcine) 3,300 unit 05/04/21 09:00 05/04/21 21:06 Heparin 10,000 Units/10 Ml Vial 40 unit/kg (3300 unit) 3,300 unit IV Administration Q6H PRN Anti-Xa Assay < 0.1 units/ml Hydralazine HCl 50 mg 05/04/21 14:00 05/06/21 05:03 Hydralazine 25 Mg Tab PO Not Given Q8HR RISHI Hydrophilic Ointment 1 applic 05/05/21 15:21 Lip Therapy Vaseline TP Q2HR PRN Dry Lips Heparin Sodium/Sodium Chloride 25,000 unit in 500 mls @ 20 mls/hr 05/04/21 09:00 05/05/21 23:46 Heparin/ 0.45% Nacl-25,000 Unit/500 Ml IV 1,663.2 units/hr TITRATE RISHI 33.264 mls/hr Titration Protocol 1,000 UNITS/HR Nitroglycerin/Dextrose 50 mg in 250 mls @ 3 mls/hr 05/04/21 10:00 05/05/21 04:57 Tridil Drip 50mg/250ml IV 170 mcg/min TITR RISHI 51 mls/hr Titration Protocol 10 MCG/MIN Fentanyl Citrate 2,000 mcg in 100 mls @ 4.082 mls/hr 05/05/21 16:00 05/06/21 11:20 Fentanyl Drip Premix IV 1 mcg/kg/hr TITR RISHI 4.082 mls/hr Administration Protocol 1 MCG/KG/HR Propofol 1,000 mg in 100 mls @ 2.449 mls/hr 05/05/21 16:00 05/05/21 17:12 Diprivan 10 Mg/Ml IV 5 mcg/kg/min TITR RISHI 2.449 mls/hr Administration Protocol 5 MCG/KG/MIN Lorazepam 0.5 mg 05/04/21 15:46 05/04/21 21:51 Lorazepam 2 Mg/Ml Vial IV 0.5 mg Q4H PRN Administration Anxiety Lorazepam 2 mg 05/04/21 23:15 05/05/21 09:10 Lorazepam 2 Mg/Ml Vial IV 2 mg Q1HR PRN Administration CIWA-Ar 8-15 Lorazepam 4 mg 05/04/21 23:15 05/05/21 10:00 Lorazepam 2 Mg/Ml Vial IV 4 mg Q1HR PRN Administration CIWA-Ar 16-25 Lorazepam 4 mg 05/04/21 23:15 05/05/21 12:10 Lorazepam 2 Mg/Ml Vial IV 4 mg Q15MIN PRN Administration CIWA-Ar >25 Metoprolol Succinate 25 mg 05/05/21 10:00 05/05/21 11:12 Metoprolol Succinate Xl 25 Mg Tab PO Not Given QDAY RISHI Morphine Sulfate 2 mg 05/04/21 12:34 Morphine 4 Mg/1 Ml Inj IV Q4H PRN Pain , Severe (7-10) Multi-Ingred Cream/Lotion/Oil/Oint 1 applic 05/05/21 15:21 Mineral Oil/Petrolatum, White Ophth Oint 3.5 Gm OU Q4HR PRN Dry Eye(s) Nifedipine 60 mg 05/04/21 22:00 05/06/21 00:23 Nifedipine Xl 60 Mg Tab PO Not Given Q12HR RISHI Ondansetron HCl 4 mg 05/04/21 12:34 05/04/21 21:51 Ondansetron 4 Mg/2 Ml Inj IV 4 mg Q8H PRN Administration Nausea And Vomiting Senna/Docusate Sodium 1 tab 05/05/21 22:00 05/06/21 00:23 Sennosides/Docusate Sodium 8.6/50 Mg Tab FEEDTUBE Not Given BID RISHI Sodium Chloride 10 ml 05/04/21 22:00 05/06/21 00:23 Sodium Chloride 0.9% 10 Ml Flush Syringe IV Not Given BID RISHI Sodium Chloride 10 ml 05/04/21 12:34 Sodium Chloride 0.9% 10 Ml Flush Syringe IV PRN PRN LINE FLUSH Nutrition/Malnutrition Assess - Dietary Evaluation Nutrition/Malnutrition Findings: Nutrition Notes Start: 05/05/21 16:15 Freq: Status: Active Protocol: Document 05/05/21 16:15 MORALES (Rec: 05/05/21 16:19 MORALES [id number]) Nutrition Notes Need for Assessment generated from: MD Order Initial or Follow up Brief Note Current Diet NPO (since 05/05 00:01). Height 5 ft 7 in Weight 81.647 kg [place] Body Weight (kg) 67.27 BMI 28.1 Weight change and time frame None reported at admission. Weight Status Overweight Subjective/Other Information RD consult for evaluation of nutritional intake. Pt is currently on NPO, not candidate for evaluation at the time, will assess at F/U if feasible. Percent of energy/protein needs met: Pt is currently on NPO. Nutrition Intervention Follow-Up By: 05/12/21 Additional Comments Pt will be assessed at F/U if feasible. Continue monitoring food tolerance, %PO intake of meals , and BM.
[2021-05-06] MEDS: FAMOTIDINE 20 MG TAB PO SCH (12:56)
[2021-05-06] MEDS: METOPROLOL SUCCINATE XL 25 MG TAB PO SCH (12:56)
--- NOTE | 2021-05-06 13:00 | Progress Note ---
Assessment and Plan Acute hypoxic resp failure on MVS COVID positive NSTEMI Acute kidney injury Cardiomyopathy EF 35-40% History of hepatitis C Elevated D-dimer. Low probability for PE seen on VQ scan Tobacco abuse Polysubstance abusepatient with positive methamphetamines and has a history of cocaine use Anemia Daily assessment for readiness to wean, SAT/SBT Will add low dose Seroquel while monitoring QTc to help with agitation management Heart failure measures per Cardioglogy Conservative fluid management as tolerated by renal function and hemodynamics Monitor electrolytes and treat as clinically indicated Continue with enteric nutritional support - VAP bundle addressed, aspiration precautions - titrate supplemental oxygen to keep SpO2 88-90% - Bronchodilators with pulmonary hygiene per RT - continue accuchecks with glycemic control per SSI (While critically ill target blood glucose of 140-180 mg/dL; avoid hypoglycemia) - avoid nephrotoxins, renally dose all medications - avoid benzodiazepines, reduce the possibility of delirium - sedation target for RASS 0 to -1 -Propofol and Fentanyl - prn analgesia per pain score - Maintenance of sleep-wake cycle, avoid delirium - Stress ulcer prophylaxis -Therapeutic anticoagulation- heparin infusion - mobility, off loading and frequent turning per facility protocol for pressure ulcer prevention - Monitor hemodynamics closely -Supportive transfusions as clinically indicated to keep HgB >7g/dL - continue other care per attending / other consultants COVID SPECIFIC INTERVENTIONS - Appears to have incidental COVID infection- Remdesivir not administered secondary to renal failure - Monitor inflammatory markers per facility protocol - ferritin, D-dimer, CRP - therapeutic anticoagulation per system Protocol based on d-dimer and clinical considerations -on therapeutic heparin for NSTEMI - Contact and airborne isolation -Continue with Dexamethasone to complete course CONDITION: CRITICAL PROGNOSIS: GUARDED CODE STATUS: FULL CODE The high probability of a clinically significant, sudden or life-threatening deterioration of the [respiratory, cardiovascular & neurologic ] system(s) re quired my full and direct attention, intervention and personal management. The aggregate critical care time was [35] minutes without overlap. Time includes spent on; [x] Data Review and interpretation [x] Patient assessment and monitoring of vital signs [x] Documentation [x] Medication orders and management Subjective Date of service: 05/06/21 Principal diagnosis: Hypertensive urgency, NSTEMI, YE Interval history: Follow up for acute hypoxemic resp failure on MVS, COVID infection;YE; Hypertension Seen and examined. Vitals, albs, medications, chart and imaging reviewed. MVS: +6/FIO2 40% Propofol and Fentanyl Discussed with respiratory and nursing care staff. Patient has intermittent agitation . Objective Vital Signs - 12hr 05/06/21 05/06/21 05/06/21 01:01 01:11 01:21 Pulse Rate 78 78 78 Respiratory 20 20 20 Rate Blood Pressure 131/88 131/88 129/88 O2 Sat by Pulse 100 100 100 Oximetry 05/06/21 05/06/21 05/06/21 01:29 01:31 01:41 Pulse Rate 79 79 83 Respiratory 20 20 Rate Blood Pressure 131/91 132/88 O2 Sat by Pulse 100 100 Oximetry 05/06/21 05/06/21 05/06/21 01:51 02:01 02:11 Pulse Rate 79 80 81 Respiratory 20 20 20 Rate Blood Pressure 133/88 134/89 136/91 O2 Sat by Pulse 100 100 100 Oximetry 05/06/21 05/06/21 05/06/21 02:21 02:31 02:41 Pulse Rate 80 80 82 Respiratory 20 20 20 Rate Blood Pressure 132/93 137/93 139/91 O2 Sat by Pulse 100 100 100 Oximetry 05/06/21 05/06/21 05/06/21 02:51 03:01 03:11 Pulse Rate 80 80 81 Respiratory 20 20 20 Rate Blood Pressure 136/91 137/89 133/92 O2 Sat by Pulse 100 100 100 Oximetry 05/06/21 05/06/21 05/06/21 03:31 03:55 04:01 Pulse Rate 81 83 83 Respiratory 20 20 Rate Blood Pressure 140/93 142/92 134/90 O2 Sat by Pulse 100 100 100 Oximetry 05/06/21 05/06/21 05/06/21 04:31 05:01 05:31 Pulse Rate 82 83 85 Respiratory 20 21 21 Rate Blood Pressure 135/92 144/94 149/100 O2 Sat by Pulse 100 100 100 Oximetry 05/06/21 05/06/21 05/06/21 06:01 06:30 06:45 Pulse Rate 85 85 85 Respiratory 21 16 22 Rate Blood Pressure 144/93 146/94 147/94 O2 Sat by Pulse 100 98 99 Oximetry 05/06/21 05/06/21 05/06/21 07:00 07:15 07:30 Pulse Rate 86 87 87 Respiratory 23 22 21 Rate Blood Pressure 142/94 148/97 149/93 O2 Sat by Pulse 97 98 97 Oximetry 05/06/21 05/06/21 05/06/21 07:45 08:00 08:15 Pulse Rate 88 86 88 Respiratory 22 26 H 22 Rate Blood Pressure 144/92 140/89 136/87 O2 Sat by Pulse 97 95 97 Oximetry 05/06/21 05/06/21 05/06/21 08:30 08:45 09:01 Pulse Rate 87 87 87 Respiratory 22 21 22 Rate Blood Pressure 136/88 140/88 140/88 O2 Sat by Pulse 97 97 98 Oximetry 05/06/21 05/06/21 05/06/21 09:15 09:31 09:45 Pulse Rate 89 90 89 Respiratory 22 25 H 25 H Rate Blood Pressure 148/90 148/93 145/93 O2 Sat by Pulse 97 98 98 Oximetry 05/06/21 05/06/21 05/06/21 10:01 10:15 10:31 Pulse Rate 89 90 89 Respiratory 25 H 26 H 25 H Rate Blood Pressure 147/93 148/92 148/95 O2 Sat by Pulse 98 98 98 Oximetry 05/06/21 05/06/21 05/06/21 10:45 11:01 11:15 Pulse Rate 89 89 89 Respiratory 26 H 27 H 25 H Rate Blood Pressure 147/93 150/94 147/94 O2 Sat by Pulse 98 98 98 Oximetry 05/06/21 12:56 Pulse Rate 86 Respiratory Rate Blood Pressure 148/94 O2 Sat by Pulse Oximetry Constitutional: no acute distress, other (orally intuabted, sedated) Eyes: non-icteric ENT: oropharynx moist Neck: supple, no lymphadenopathy, no JVD Effort: normal Ascultation: Bilateral: clear, diminished breath sounds Cardiovascular: irregular rhythm, other (S1,S2) Gastrointestinal: normoactive bowel sounds, soft, non-tender, non-distended Extremities: no cyanosis, no edema, pulses normal Neurologic: unable to assess (sedated) Psychiatric: other CBC and BMP: 05/09/21 04:20 05/09/21 04:20 ABG, PT/INR, D-dimer: ABG ABG pH 7.381 pH Units (7.350-7.450) 05/06/21 06:15 ABG pCO2 38.8 mm Hg 05/06/21 06:15 ABG pO2 143.5 mm Hg (80.0-90.0) H 05/06/21 06:15 ABG O2 Saturation 98.7 % (95.0-99.0) 05/06/21 06:15 PT/INR, D-dimer PT 15.1 Sec. (12.2-14.9) H 05/04/21 07:25 INR 1.07 (0.87-1.13) 05/04/21 07:25 D-Dimer 579.49 ng/mlDDU (0-234) H 05/04/21 07:25 Abnormal lab findings: Abnormal Labs 05/04/21 05/04/21 05/04/21 07:25 07:25 07:25 WBC 12.9 H RBC 3.04 L Hgb 9.5 L Hct 28.4 L RDW 15.4 H Lymph % (Auto) 11.4 L [place] % (Auto) 10.1 H [place] # (Auto) 1.3 H Seg Neutrophils % 78.0 H Seg Neutrophils # 10.0 H PT 15.1 H D-Dimer Heparin Anti-Xa Level ABG pH ABG pO2 ABG Base Excess ABG Hemoglobin Sodium 135 L Potassium BUN 65 H Creatinine 3.4 H Glucose 118 H Total Bilirubin 1.50 H AST 519 H ALT 475 H Total Creatine Kinase Troponin T 1.300 H* Coronavirus (PCR) Hepatitis C Antibody 05/04/21 05/04/21 05/04/21 07:25 08:42 08:42 WBC RBC Hgb Hct RDW Lymph % (Auto) [place] % (Auto) [place] # (Auto) Seg Neutrophils % Seg Neutrophils # PT D-Dimer 579.49 H Heparin Anti-Xa Level ABG pH ABG pO2 ABG Base Excess ABG Hemoglobin Sodium Potassium BUN Creatinine Glucose Total Bilirubin AST ALT Total Creatine Kinase 406 H Troponin T 1.230 H* Coronavirus (PCR) Hepatitis C Antibody 05/04/21 05/04/21 05/04/21 10:13 13:34 18:14 WBC RBC Hgb 8.8 L Hct 26.6 L RDW Lymph % (Auto) [place] % (Auto) [place] # (Auto) Seg Neutrophils % Seg Neutrophils # PT D-Dimer Heparin Anti-Xa Level < 0.10 L ABG pH ABG pO2 ABG Base Excess ABG Hemoglobin Sodium Potassium BUN Creatinine Glucose Total Bilirubin AST ALT Total Creatine Kinase Troponin T 1.400 H* Coronavirus (PCR) Hepatitis C Antibody 05/05/21 05/05/21 05/05/21 03:40 03:40 03:40 WBC RBC Hgb Hct RDW Lymph % (Auto) [place] % (Auto) [place] # (Auto) Seg Neutrophils % Seg Neutrophils # PT D-Dimer Heparin Anti-Xa Level 0.11 L ABG pH ABG pO2 ABG Base Excess ABG Hemoglobin Sodium Potassium 3.3 L BUN 59 H Creatinine 2.6 H Glucose 139 H Total Bilirubin AST ALT Total Creatine Kinase Troponin T Coronavirus (PCR) Hepatitis C Antibody Reactive A 05/05/21 05/05/21 05/05/21 08:30 11:28 17:00 WBC RBC Hgb Hct RDW Lymph % (Auto) [place] % (Auto) [place] # (Auto) Seg Neutrophils % Seg Neutrophils # PT D-Dimer Heparin Anti-Xa Level 0.10 L ABG pH 7.304 L ABG pO2 140.8 H ABG Base Excess -2.1 L ABG Hemoglobin 10.2 L Sodium Potassium BUN Creatinine Glucose Total Bilirubin AST ALT Total Creatine Kinase Troponin T Coronavirus (PCR) Positive A Hepatitis C Antibody 05/05/21 05/06/21 05/06/21 19:51 03:47 06:15 WBC RBC Hgb 9.0 L Hct 27.8 L RDW Lymph % (Auto) [place] % (Auto) [place] # (Auto) Seg Neutrophils % Seg Neutrophils # PT D-Dimer Heparin Anti-Xa Level 0.22 L ABG pH ABG pO2 143.5 H ABG Base Excess -2.4 L ABG Hemoglobin 6.9 L Sodium Potassium BUN Creatinine Glucose Total Bilirubin AST ALT Total Creatine Kinase Troponin T Coronavirus (PCR) Hepatitis C Antibody Chest x-ray: image reviewed (Persitent alveoalr infiltrates) Additional Studies: n Allied health notes reviewed: RT
[2021-05-06] MEDS: FAMOTIDINE 20 MG/2 ML INJ IV SCH (13:58)
--- NOTE | 2021-05-06 15:31 | Progress Note ---
Assessment and Plan Patient is a 56-year-old male with a past medical history of hypertension, paroxysmal SVT, medical noncompliance, smoking, substance abuse who presented to the ED with a complaint of shortness of breath and dyspnea on exertion x1 month however with significantly worsening symptoms since yesterday. NSTEMI Hypertensive Emergency COVID-19 YE Hepatitis C SOB Medical noncompliance Polysubstance abuse-patient tested positive for methamphetamines Echo 05/04/2021-EF 35 to 40%. Moderate concentric LVH. Moderate global hypokinesis of left ventricle. Mild mitral regurgitation. Mild pulmonary hypertension. Echocardiogram reviewed (08/27/2020): LVEF is 50 to 55%. Mild to moderate concentric LVF. Severe diastolic dysfunction is present (restrictive filling). Right ventricle is mildly hypokinetic. RVSP is 48 mmHg. No valvular abnormalities. Plan: Due to patient's renal function and elevated LFTs recommend continuing medical management Patient has been heparin drip for 48 hours. We will stop heparin drip. Heparin subcu for DVT prophylaxis Patient has been n.p.o. and not receiving p.o. meds. Per discussion with nurse patient to get NG tube today Will stop nifedipine XL and convert metoprolol XL to metoprolol tartrate to 50 mg p.o. twice daily Patient seen in conjunction with Dr. Rizvi who agrees with this plan of care - Patient Problems (1) ARF (acute renal failure) Current Visit: Yes Status: Acute (2) Elevated d-dimer Current Visit: Yes Status: Acute (3) LFT elevation Current Visit: Yes Status: Acute (4) NSTEMI (non-ST elevated myocardial infarction) Current Visit: Yes Status: Acute (5) Polysubstance abuse Current Visit: Yes Status: Acute (6) SOB (shortness of breath) Current Visit: Yes Status: Acute (7) Hypertension Current Visit: Yes Status: Chronic (8) Noncompliance with medication regimen Current Visit: Yes Status: Chronic Subjective Date of service: 05/06/21 Principal diagnosis: Hypertensive urgency, NSTEMI, YE Interval history: Patient currently intubated and sedated Sinus 80s to 90s with PVCs Objective Vital Signs Temp Pulse Resp BP BP Pulse Ox 05/06/21 12:56 86 148/94 05/06/21 11:15 89 25 H 147/94 98 05/06/21 11:01 89 27 H 150/94 98 01/21/22 10:45 89 26 H 147/93 98 05/06/21 10:31 89 25 H 148/95 98 05/06/21 10:15 90 26 H 148/92 98 05/06/21 10:01 89 25 H 147/93 98 05/06/21 09:45 89 25 H 145/93 98 05/06/21 09:31 90 25 H 148/93 98 05/06/21 09:15 89 22 148/90 97 05/06/21 09:01 87 22 140/88 98 05/06/21 08:45 87 21 140/88 97 05/06/21 08:30 87 22 136/88 97 05/06/21 08:15 88 22 136/87 97 05/06/21 08:00 86 26 H 140/89 95 05/06/21 07:45 88 22 144/92 97 05/06/21 07:30 87 21 149/93 97 05/06/21 07:15 87 22 148/97 98 05/06/21 07:00 86 23 142/94 97 05/06/21 06:45 85 22 147/94 99 05/06/21 06:30 85 16 146/94 98 05/06/21 06:01 85 21 144/93 100 05/06/21 05:31 85 21 149/100 100 05/06/21 05:01 83 21 144/94 100 05/06/21 04:31 82 20 135/92 100 05/06/21 04:01 83 20 134/90 100 05/06/21 03:55 83 142/92 100 05/06/21 03:31 81 20 140/93 100 05/06/21 03:11 81 20 133/92 100 05/06/21 03:01 80 20 137/89 100 05/06/21 02:51 80 20 136/91 100 05/06/21 02:41 82 20 139/91 100 05/06/21 02:31 80 20 137/93 100 05/06/21 02:21 80 20 132/93 100 05/06/21 02:11 81 20 136/91 100 05/06/21 02:01 80 20 134/89 100 05/06/21 01:51 79 20 133/88 100 05/06/21 01:41 83 20 132/88 100 05/06/21 01:31 79 20 131/91 100 05/06/21 01:29 79 05/06/21 01:21 78 20 129/88 100 05/06/21 01:11 78 20 131/88 100 05/06/21 01:01 78 20 131/88 100 05/06/21 00:51 78 20 129/88 100 05/06/21 00:45 78 20 128/87 100 05/06/21 00:31 77 20 131/88 100 05/06/21 00:22 78 115/80 05/06/21 00:15 78 20 135/92 100 05/06/21 00:01 78 20 132/90 100 05/05/21 23:45 77 20 128/87 100 05/05/21 23:31 77 20 124/85 100 05/05/21 23:15 76 20 122/85 100 05/05/21 23:01 76 20 125/84 100 05/05/21 22:45 76 20 120/83 100 05/05/21 22:31 77 20 119/79 100 05/05/21 22:15 77 20 120/81 100 05/05/21 22:01 78 20 119/81 100 05/05/21 22:00 20 100 05/05/21 21:45 79 20 127/88 100 05/05/21 21:31 77 21 121/84 100 05/05/21 21:15 78 21 115/80 100 05/05/21 21:04 98.3 F 78 20 108/73 100 05/05/21 21:01 77 30 H 108/71 100 05/05/21 20:45 77 35 H 115/72 100 22 20:31 77 34 H 112/76 100 22 20:15 75 17 107/75 100 20/22 20:01 77 20 92/63 100 22 19:45 74 20 102/69 100 2022 19:30 74 20 108/70 100 2022 19:17 78 115/80 100 05/05/21 19:15 76 20 105/71 100 2022 19:01 76 20 103/70 100 2022 18:45 76 20 99/68 100 22 18:31 77 20 99/68 100 05/05/21 18:15 78 20 100/67 99 05/05/21 18:01 80 20 105/69 98 05/05/21 17:45 83 21 109/73 97 05/05/21 17:31 85 22 111/79 100 05/05/21 17:15 84 17 112/78 100 05/05/21 17:13 85 16 112/78 05/05/21 17:01 84 16 116/83 100 05/05/21 16:45 88 16 122/83 100 05/05/21 16:31 86 16 119/81 100 05/05/21 16:15 84 16 118/78 100 05/05/21 16:01 85 16 119/77 100 05/05/21 15:45 87 16 117/83 100 05/05/21 15:31 85 15 114/70 100 - Physical Examination General: Other (Intubated and sedated) HEENT: Positive: PERRL Neck: Positive: trachea midline Cardiac: Positive: Reg Rate and Rhythm Lungs: Positive: Ventilated Respirations Neuro: Positive: Other (Altered mental status) Abdomen: Positive: Soft Skin: Negative: Rash, Suspicious Lesions, Ulceration Extremities: Present: upper extr. pulses. Absent: edema - Labs and Meds CBC 05/06/21 Range/Units 03:47 Hgb 9.0 L (11.8-15.2) gm/dl Hct 27.8 L (35.5-45.6) % Plt Count 274 (140-440) K/mm3 - Imaging and Cardiology Echo: report reviewed - Telemetry EKG Rhythm: Sinus Rhythm - EKG Sinus rhythms and dysrhythmias: sinus rhythm Ventricular dysrhythmias: ventricular premature com Chamber hypertrophy or enlargement: left ventricular hypertro
[2021-05-06] MEDS: ASPIRIN 81 MG TAB CHEW PO SCH (16:14)
[2021-05-06] MEDS: METOPROLOL TARTRATE 50 MG TAB PO SCH (16:14)
[2021-05-07 03:52] LABS: Calcium 8.8 mg/dL (8.4-10.2)
[2021-05-07 04:00] LABS: ABG Base Excess -2.6 mmol/L (-2.0-3.0); ABG HCO3 21.8 mmol/L (20.0-26.0); ABG Methemoglobin 0.7 % (0.0-1.5); ABG Oxygen Saturation 97.8 % (95.0-99.0); ABG PCO2 35.5 mm Hg; ABG PH 7.405 pH Units (7.350-7.450); ABG PO2 104.3 mm Hg (80.0-90.0)
--- NOTE | 2021-05-07 06:06 | Progress Note ---
Assessment and Plan Acute hypoxic resp failure on MVS COVID positive NSTEMI Acute kidney injury Cardiomyopathy EF 35-40% History of hepatitis C Elevated D-dimer. Low probability for PE seen on VQ scan Tobacco abuse Polysubstance abusepatient with positive methamphetamines and has a history of cocaine use Anemia Daily assessment for readiness to wean, SAT/SBT Tracheal aspirate culture- specimen was unsatisfactory Blood cultures-NGTD The patient has not been on antibitoics, and clinically does not appear to have a bacterial infection Monitor temperature curve and WCC closely. If there is any clinical deterioration will start empiric antibiotics and get procalcitonin Conservative fluid management as tolerated by renal function and hemodynamics Continue to monitor electrolytes and treat as clinically indicated Continue with enteric nutritional support - VAP bundle addressed, aspiration precautions - titrate supplemental oxygen to keep SpO2 88-90% - Bronchodilators with pulmonary hygiene per RT - continue accuchecks with glycemic control per SSI (While critically ill target blood glucose of 140-180 mg/dL; avoid hypoglycemia) - avoid nephrotoxins, renally dose all medications - avoid benzodiazepines, reduce the possibility of delirium - sedation target for RASS 0 to -1 -Propofol and Fentanyl - prn analgesia per pain score - Maintenance of sleep-wake cycle, avoid delirium - Stress ulcer prophylaxis -Therapeutic anticoagulation- heparin infusion - mobility, off loading and frequent turning per facility protocol for pressure ulcer prevention - Monitor hemodynamics closely -Supportive transfusions as clinically indicated to keep HgB >7g/dL - continue other care per attending / other consultants COVID SPECIFIC INTERVENTIONS - Appears to have incidental COVID infection- Remdesivir not administered secondary to renal failure - Monitor inflammatory markers per facility protocol - ferritin, D-dimer, CRP - therapeutic anticoagulation per system Protocol based on d-dimer and clinical considerations -on therapeutic heparin for NSTEMI - Contact and airborne isolation -Continue with Dexamethasone to complete course CONDITION: CRITICAL PROGNOSIS: GUARDED CODE STATUS: FULL CODE The high probability of a clinically significant, sudden or life-threatening deterioration of the [respiratory, cardiovascular & neurologic ] system(s) required my full and direct attention, intervention and personal management. The aggregate critical care time was [35] minutes without overlap. Time includes spent on; [x] Data Review and interpretation [x] Patient assessment and monitoring of vital signs [x] Documentation [x] Medication orders and management Subjective Date of service: 05/07/21 Principal diagnosis: Hypertensive urgency, NSTEMI, YE Interval history: Follow up for acute hypoxemic resp failure on MVS, COVID infection;YE; Hyperte nsion Seen and examined. Vitals, albs, medications, chart and imaging reviewed. MVS: +6/FIO2 40% Propofol and Fentanyl Discussed with respiratory and nursing care staff. Acute desaturations this morning associated with coughing and increasing work of breathing- I am at the bedside with RT and RN Increased sedation- ordered CXR and changes out the ventilator circuit- copious thick secretions . Objective Vital Signs - 12hr 05/06/21 05/07/21 05/07/21 19:35 00:45 04:35 Pulse Rate 84 84 84 Respiratory 2 L 4 L 4 L Rate Blood Pressure 160/99 160/99 160/99 O2 Sat by Pulse 98 99 99 Oximetry Constitutional: no acute distress, other (orally intuabted, sedated) Eyes: non-icteric ENT: oropharynx moist Neck: supple, no lymphadenopathy, no JVD Effort: normal Ascultation: Bilateral: clear, diminished breath sounds Cardiovascular: irregular rhythm, other (S1,S2) Gastrointestinal: normoactive bowel sounds, soft, non-tender, non-distended Extremities: no cyanosis, no edema, pulses normal Neurologic: unable to assess (sedated) Psychiatric: other CBC and BMP: 05/09/21 04:20 05/09/21 04:20 ABG, PT/INR, D-dimer: ABG ABG pH 7.405 pH Units (7.350-7.450) 05/07/21 03:45 ABG pCO2 35.5 mm Hg 05/07/21 03:45 ABG pO2 104.3 mm Hg (80.0-90.0) H 05/07/21 03:45 ABG O2 Saturation 97.8 % (95.0-99.0) 05/07/21 03:45 PT/INR, D-dimer PT 15.1 Sec. (12.2-14.9) H 05/04/21 07:25 INR 1.07 (0.87-1.13) 05/04/21 07:25 D-Dimer 579.49 ng/mlDDU (0-234) H 05/04/21 07:25 Abnormal lab findings: Abnormal Labs 05/04/21 05/04/21 05/04/21 07:25 07:25 07:25 WBC 12.9 H RBC 3.04 L Hgb 9.5 L Hct 28.4 L RDW 15.4 H Lymph % (Auto) 11.4 L [place] % (Auto) 10.1 H [place] # (Auto) 1.3 H Seg Neutrophils % 78.0 H Seg Neutrophils # 10.0 H PT 15.1 H D-Dimer Heparin Anti-Xa Level ABG pH ABG pO2 ABG Base Excess ABG Hemoglobin Sodium 135 L Potassium Chloride Carbon Dioxide BUN 65 H Creatinine 3.4 H Glucose 118 H Total Bilirubin 1.50 H AST 519 H ALT 475 H Total Creatine Kinase Troponin T 1.300 H* Coronavirus (PCR) Hepatitis C Antibody 05/04/21 05/04/21 05/04/21 07:25 08:42 08:42 WBC RBC Hgb Hct RDW Lymph % (Auto) [place] % (Auto) [place] # (Auto) Seg Neutrophils % Seg Neutrophils # PT D-Dimer 579.49 H Heparin Anti-Xa Level ABG pH ABG pO2 ABG Base Excess ABG Hemoglobin Sodium Potassium Chloride Carbon Dioxide BUN Creatinine Glucose Total Bilirubin AST ALT Total Creatine Kinase 406 H Troponin T 1.230 H* Coronavirus (PCR) Hepatitis C Antibody 05/04/21 05/04/21 05/04/21 10:13 13:34 18:14 WBC RBC Hgb 8.8 L Hct 26.6 L RDW Lymph % (Auto) [place] % (Auto) [place] # (Auto) Seg Neutrophils % Seg Neutrophils # PT D-Dimer Heparin Anti-Xa Level < 0.10 L ABG pH ABG pO2 ABG Base Excess ABG Hemoglobin Sodium Potassium Chloride Carbon Dioxide BUN Creatinine Glucose Total Bilirubin AST ALT Total Creatine Kinase Troponin T 1.400 H* Coronavirus (PCR) Hepatitis C Antibody 05/05/21 05/05/21 05/05/21 03:40 03:40 03:40 WBC RBC Hgb Hct RDW Lymph % (Auto) [place] % (Auto) [place] # (Auto) Seg Neutrophils % Seg Neutrophils # PT D-Dimer Heparin Anti-Xa Level 0.11 L ABG pH ABG pO2 ABG Base Excess ABG Hemoglobin Sodium Potassium 3.3 L Chloride Carbon Dioxide BUN 59 H Creatinine 2.6 H Glucose 139 H Total Bilirubin AST ALT Total Creatine Kinase Troponin T Coronavirus (PCR) Hepatitis C Antibody Reactive A 05/05/21 05/05/21 05/05/21 08:30 11:28 17:00 WBC RBC Hgb Hct RDW Lymph % (Auto) [place] % (Auto) [place] # (Auto) Seg Neutrophils % Seg Neutrophils # PT D-Dimer Heparin Anti-Xa Level 0.10 L ABG pH 7.304 L ABG pO2 140.8 H ABG Base Excess -2.1 L ABG Hemoglobin 10.2 L Sodium Potassium Chloride Carbon Dioxide BUN Creatinine Glucose Total Bilirubin AST ALT Total Creatine Kinase Troponin T Coronavirus (PCR) Positive A Hepatitis C Antibody 05/05/21 05/06/21 05/06/21 19:51 03:47 06:15 WBC RBC Hgb 9.0 L Hct 27.8 L RDW Lymph % (Auto) [place] % (Auto) [place] # (Auto) Seg Neutrophils % Seg Neutrophils # PT D-Dimer Heparin Anti-Xa Level 0.22 L ABG pH ABG pO2 143.5 H ABG Base Excess -2.4 L ABG Hemoglobin 6.9 L Sodium Potassium Chloride Carbon Dioxide BUN Creatinine Glucose Total Bilirubin AST ALT Total Creatine Kinase Troponin T Coronavirus (PCR) Hepatitis C Antibody 05/06/21 05/07/21 05/07/21 17:53 00:07 03:22 WBC RBC Hgb Hct RDW Lymph % (Auto) [place] % (Auto) [place] # (Auto) Seg Neutrophils % Seg Neutrophils # PT D-Dimer Heparin Anti-Xa Level 0.10 L < 0.10 L ABG pH ABG pO2 ABG Base Excess ABG Hemoglobin Sodium Potassium Chloride 107.1 H Carbon Dioxide 20 L BUN 56 H Creatinine 2.9 H Glucose Total Bilirubin AST ALT Total Creatine Kinase Troponin T Coronavirus (PCR) Hepatitis C Antibody 05/07/21 03:45 WBC RBC Hgb Hct RDW Lymph % (Auto) [place] % (Auto) [place] # (Auto) Seg Neutrophils % Seg Neutrophils # PT D-Dimer Heparin Anti-Xa Level ABG pH ABG pO2 104.3 H ABG Base Excess -2.6 L ABG Hemoglobin 9.1 L Sodium Potassium Chloride Carbon Dioxide BUN Creatinine Glucose Total Bilirubin AST ALT Total Creatine Kinase Troponin T Coronavirus (PCR) Hepatitis C Antibody Chest x-ray: image reviewed (Right lower lobe infiltrate-unchanged)
--- NOTE | 2021-05-07 06:09 | Progress Note ---
Subjective Date of service: 05/07/21 Principal diagnosis: Hypertensive urgency, NSTEMI, YE Objective Vital Signs - 12hr 05/06/21 05/07/21 05/07/21 19:35 00:45 04:35 Pulse Rate 84 84 84 Respiratory 2 L 4 L 4 L Rate Blood Pressure 160/99 160/99 160/99 O2 Sat by Pulse 98 99 99 Oximetry Constitutional: no acute distress, other (orally intuabted, sedated) Eyes: non-icteric ENT: oropharynx moist Neck: supple, no lymphadenopathy, no JVD Effort: normal Ascultation: Bilateral: clear, diminished breath sounds Cardiovascular: irregular rhythm, other (S1,S2) Gastrointestinal: normoactive bowel sounds, soft, non-tender, non-distended Extremities: no cyanosis, no edema, pulses normal Neurologic: unable to assess (sedated) Psychiatric: other CBC and BMP: 05/06/21 03:47 05/07/21 03:22 ABG, PT/INR, D-dimer: ABG ABG pH 7.405 pH Units (7.350-7.450) 05/07/21 03:45 ABG pCO2 35.5 mm Hg 05/07/21 03:45 ABG pO2 104.3 mm Hg (80.0-90.0) H 05/07/21 03:45 ABG O2 Saturation 97.8 % (95.0-99.0) 05/07/21 03:45 PT/INR, D-dimer PT 15.1 Sec. (12.2-14.9) H 05/04/21 07:25 INR 1.07 (0.87-1.13) 05/04/21 07:25 D-Dimer 579.49 ng/mlDDU (0-234) H 05/04/21 07:25 Abnormal lab findings: Abnormal Labs 05/04/21 05/04/21 05/04/21 07:25 07:25 07:25 WBC 12.9 H RBC 3.04 L Hgb 9.5 L Hct 28.4 L RDW 15.4 H Lymph % (Auto) 11.4 L [place] % (Auto) 10.1 H [place] # (Auto) 1.3 H Seg Neutrophils % 78.0 H Seg Neutrophils # 10.0 H PT 15.1 H D-Dimer Heparin Anti-Xa Level ABG pH ABG pO2 ABG Base Excess ABG Hemoglobin Sodium 135 L Potassium Chloride Carbon Dioxide BUN 65 H Creatinine 3.4 H Glucose 118 H Total Bilirubin 1.50 H AST 519 H ALT 475 H Total Creatine Kinase Troponin T 1.300 H* Coronavirus (PCR) Hepatitis C Antibody 05/04/21 05/04/21 05/04/21 07:25 08:42 08:42 WBC RBC Hgb Hct RDW Lymph % (Auto) [place] % (Auto) [place] # (Auto) Seg Neutrophils % Seg Neutrophils # PT D-Dimer 579.49 H Heparin Anti-Xa Level ABG pH ABG pO2 ABG Base Excess ABG Hemoglobin Sodium Potassium Chloride Carbon Dioxide BUN Creatinine Glucose Total Bilirubin AST ALT Total Creatine Kinase 406 H Troponin T 1.230 H* Coronavirus (PCR) Hepatitis C Antibody 05/04/21 05/04/21 05/04/21 10:13 13:34 18:14 WBC RBC Hgb 8.8 L Hct 26.6 L RDW Lymph % (Auto) [place] % (Auto) [place] # (Auto) Seg Neutrophils % Seg Neutrophils # PT D-Dimer Heparin Anti-Xa Level < 0.10 L ABG pH ABG pO2 ABG Base Excess ABG Hemoglobin Sodium Potassium Chloride Carbon Dioxide BUN Creatinine Glucose Total Bilirubin AST ALT Total Creatine Kinase Troponin T 1.400 H* Coronavirus (PCR) Hepatitis C Antibody 05/05/21 05/05/21 05/05/21 03:40 03:40 03:40 WBC RBC Hgb Hct RDW Lymph % (Auto) [place] % (Auto) [place] # (Auto) Seg Neutrophils % Seg Neutrophils # PT D-Dimer Heparin Anti-Xa Level 0.11 L ABG pH ABG pO2 ABG Base Excess ABG Hemoglobin Sodium Potassium 3.3 L Chloride Carbon Dioxide BUN 59 H Creatinine 2.6 H Glucose 139 H Total Bilirubin AST ALT Total Creatine Kinase Troponin T Coronavirus (PCR) Hepatitis C Antibody Reactive A 05/05/21 05/05/21 05/05/21 08:30 11:28 17:00 WBC RBC Hgb Hct RDW Lymph % (Auto) [place] % (Auto) [place] # (Auto) Seg Neutrophils % Seg Neutrophils # PT D-Dimer Heparin Anti-Xa Level 0.10 L ABG pH 7.304 L ABG pO2 140.8 H ABG Base Excess -2.1 L ABG Hemoglobin 10.2 L Sodium Potassium Chloride Carbon Dioxide BUN Creatinine Glucose Total Bilirubin AST ALT Total Creatine Kinase Troponin T Coronavirus (PCR) Positive A Hepatitis C Antibody 05/05/21 05/06/21 05/06/21 19:51 03:47 06:15 WBC RBC Hgb 9.0 L Hct 27.8 L RDW Lymph % (Auto) [place] % (Auto) [place] # (Auto) Seg Neutrophils % Seg Neutrophils # PT D-Dimer Heparin Anti-Xa Level 0.22 L ABG pH ABG pO2 143.5 H ABG Base Excess -2.4 L ABG Hemoglobin 6.9 L Sodium Potassium Chloride Carbon Dioxide BUN Creatinine Glucose Total Bilirubin AST ALT Total Creatine Kinase Troponin T Coronavirus (PCR) Hepatitis C Antibody 05/06/21 05/07/21 05/07/21 17:53 00:07 03:22 WBC RBC Hgb Hct RDW Lymph % (Auto) [place] % (Auto) [place] # (Auto) Seg Neutrophils % Seg Neutrophils # PT D-Dimer Heparin Anti-Xa Level 0.10 L < 0.10 L ABG pH ABG pO2 ABG Base Excess ABG Hemoglobin Sodium Potassium Chloride 107.1 H Carbon Dioxide 20 L BUN 56 H Creatinine 2.9 H Glucose Total Bilirubin AST ALT Total Creatine Kinase Troponin T Coronavirus (PCR) Hepatitis C Antibody 05/07/21 03:45 WBC RBC Hgb Hct RDW Lymph % (Auto) [place] % (Auto) [place] # (Auto) Seg Neutrophils % Seg Neutrophils # PT D-Dimer Heparin Anti-Xa Level ABG pH ABG pO2 104.3 H ABG Base Excess -2.6 L ABG Hemoglobin 9.1 L Sodium Potassium Chloride Carbon Dioxide BUN Creatinine Glucose Total Bilirubin AST ALT Total Creatine Kinase Troponin T Coronavirus (PCR) Hepatitis C Antibody
--- NOTE | 2021-05-07 07:42 | XRay Report ---
CHEST 1 VIEW 05/07/2021 7:14 AM INDICATION / CLINICAL INFORMATION: follow up respiratory failure. COMPARISON: 05/06/2021 FINDINGS: SUPPORT DEVICES: ET tube satisfactory in position. NG tube appears normal. HEART / MEDIASTINUM: No significant abnormality. LUNGS / PLEURA: Increased opacities in the perihilar regions and lower lungs. Overall opacities appea r improved No pneumothorax. Signer Name: Master Cantu MD Signed: 05/07/2021 7:38 AM Workstation Name: [id number]
[2021-05-07] MEDS: fentaNYL DRIP Premix 2,000 MCG/100 ML BAG IV SCH ×3 (08:55→22:00)
[2021-05-07] MEDS: METOPROLOL TARTRATE 50 MG TAB PO SCH ×2 (10:33→22:23)
[2021-05-07] MEDS: SENNOSIDES/DOCUSATE SODIUM 8.6/50 MG TAB FEEDTUBE SCH ×2 (10:33→22:24)
[2021-05-07] MEDS: HEPARIN 5,000 UNIT/1 ML VIAL SUB-Q SCH ×2 (10:41→22:42)
[2021-05-07] MEDS: FAMOTIDINE 20 MG/2 ML INJ IV SCH ×2 (10:42→22:23)
[2021-05-07] MEDS: ASPIRIN 81 MG TAB CHEW PO SCH (10:43)
[2021-05-07] MEDS: hydrALAZINE 25 MG TAB PO SCH ×2 (13:17→22:23)
--- NOTE | 2021-05-07 13:32 | Progress Note ---
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 UOP and lytes are stable * Recommend IVF to maintain hydration - attempt to keep I/O matched * Start NS 75ml/hour * Await pending serologies and urine lytes * Renal ultrasound reviewed - will need follow up CT once stable * Continue antiHTN medications * Cardiology recommendations noted * Dose medications for renal function * Avoid potential nephrotoxins * Strict I/O Subjective Date of service: 05/07/21 Principal diagnosis: Hypertensive urgency, NSTEMI, YE Interval history: Patient remains intubated. Chart, vitals, labs reviewed. Objective - Vital Signs Vital signs: Vital Signs - 12hr 05/07/21 05/07/21 05/07/21 01:31 01:45 02:01 Pulse Rate 85 85 85 Respiratory 21 25 H 24 Rate Blood Pressure 169/102 169/102 167/99 O2 Sat by Pulse 98 98 98 Oximetry 05/07/21 05/07/21 05/07/21 02:15 02:31 02:45 Pulse Rate 86 87 85 Respiratory 26 H 26 H 25 H Rate Blood Pressure 167/99 171/102 171/102 O2 Sat by Pulse 98 98 98 Oximetry 05/07/21 05/07/21 05/07/21 03:01 03:15 03:31 Pulse Rate 86 88 87 Respiratory 26 H 25 H 25 H Rate Blood Pressure 168/101 168/101 175/103 O2 Sat by Pulse 98 98 98 Oximetry 05/07/21 05/07/21 05/07/21 03:45 04:01 04:15 Pulse Rate 88 87 88 Respiratory 26 H 24 24 Rate Blood Pressure 175/103 173/101 173/101 O2 Sat by Pulse 98 98 98 Oximetry 05/07/21 05/07/21 05/07/21 04:31 04:35 04:45 Pulse Rate 88 84 89 Respiratory 26 H 4 L 25 H Rate Blood Pressure 176/102 160/99 176/102 O2 Sat by Pulse 98 99 98 Oximetry 05/07/21 05/07/21 05/07/21 05:01 05:15 05:31 Pulse Rate 90 88 88 Respiratory 24 23 27 H Rate Blood Pressure 178/104 178/104 177/104 O2 Sat by Pulse 98 98 98 Oximetry 05/07/21 05/07/21 05/07/21 05:45 06:01 06:15 Pulse Rate 88 89 90 Respiratory 26 H 25 H 21 Rate Blood Pressure 177/104 178/104 178/104 O2 Sat by Pulse 98 98 97 Oximetry 05/07/21 05/07/21 05/07/21 06:31 06:45 07:01 Pulse Rate 93 H 102 H 100 H Respiratory 29 H 43 H 30 H Rate Blood Pressure 179/110 179/110 167/111 O2 Sat by Pulse 98 98 96 Oximetry 05/07/21 05/07/21 05/07/21 07:31 07:46 08:01 Pulse Rate 93 H 91 H 88 Respiratory 27 H 21 Rate Blood Pressure 174/102 174/102 167/97 O2 Sat by Pulse 97 98 97 Oximetry 05/07/21 05/07/21 05/07/21 08:31 09:01 09:31 Pulse Rate 89 89 87 Respiratory 24 27 H 25 H Rate Blood Pressure 167/99 176/104 175/102 O2 Sat by Pulse 97 98 98 Oximetry 05/07/21 05/07/21 05/07/21 10:01 10:31 11:01 Pulse Rate 86 85 86 Respiratory 20 21 20 Rate Blood Pressure 170/99 169/98 170/100 O2 Sat by Pulse 97 98 98 Oximetry 05/07/21 05/07/21 05/07/21 11:31 11:44 12:01 Pulse Rate 85 89 83 Respiratory 22 18 Rate Blood Pressure 168/101 168/101 165/98 O2 Sat by Pulse 98 98 98 Oximetry 05/07/21 05/07/21 05/07/21 12:31 13:01 13:17 Pulse Rate 83 83 82 Respiratory 18 17 Rate Blood Pressure 162/95 168/98 168/98 O2 Sat by Pulse 98 98 Oximetry - General Appearance General appearance: well-developed, well-nourished, intubated EENT: ATNC Respiratory: Present: Other (coarse BS) Cardiology: regular, S1S2 Gastrointestinal: hypoactive bowel sounds Integumentary: no rash, warm and dry Neurologic: other (sedated) Musculoskeletal: other (no edema) - Lab 05/08/21 04:34 05/08/21 04:34 Most recent lab results ABG pH 7.405 pH Units (7.350-7.450) 05/07/21 03:45 ABG pCO2 35.5 mm Hg 05/07/21 03:45 ABG pO2 104.3 mm Hg (80.0-90.0) H 05/07/21 03:45 ABG HCO3 21.8 mmol/L (20.0-26.0) 05/07/21 03:45 ABG O2 Saturation 97.8 % (95.0-99.0) 05/07/21 03:45 Calcium 8.8 mg/dL (8.4-10.2) 05/07/21 03:22 Magnesium 2.20 mg/dL (1.7-2.3) 05/04/21 08:42 Medications & Allergies - Medications Allergies/Adverse Reactions: Allergies No Known Allergies Allergy (Verified 09/11/20 10:02) Home Medications: Home Medications Medication Instructions Recorded Confirmed Last Taken Type Cefpodoxime Proxetil 200 mg PO Q12H #10 tablet 09/11/20 Unknown Rx Famotidine [Pepcid] 20 mg PO BID #30 tablet 04/13/21 Unknown Rx Losartan [Cozaar] 100 mg PO QDAY #60 tablet 04/13/21 Unknown Rx Metoprolol Xl [Metoprolol 25 mg PO QDAY #30 tablet 04/13/21 Unknown Rx SUCCINATE ER TAB] NIFEdipine XL [Procardia Xl] 60 mg PO Q12HR #60 tablet 04/13/21 Unknown Rx hydrALAZINE [Apresoline TAB] 50 mg PO Q8HR #180 tablet 04/13/21 Unknown Rx Active Medications: Generic Name Dose Route Start Last Admin Trade Name Freq PRN Reason Stop Dose Admin Acetaminophen 650 mg 05/04/21 12:34 Acetaminophen 325 Mg Tab PO Q4H PRN Pain MILD(1-3)/Fever >100.5/MARIA Hydrocodone Bitart/Acetaminophen 2 each 05/04/21 12:34 Hydrocodone/Acetaminophen 5-325 Mg Tab PO Q6H PRN Pain, Moderate (4-6) Aspirin 81 mg 05/06/21 14:00 05/07/21 10:43 Aspirin 81 Mg Tab Chew PO Not Given QDAY RISHI Famotidine 10 mg 05/06/21 11:30 05/07/21 10:42 Famotidine 20 Mg/2 Ml Inj IV 10 mg BID RISHI Administration Fentanyl 50 mcg 05/05/21 15:21 Fentanyl 100 Mcg/2 Ml Inj IV Q10MIN PRN ANALGESIA Heparin Sodium (Porcine) 5,000 unit 05/06/21 22:00 05/07/21 10:41 Heparin 5,000 Unit/1 Ml Vial SUB-Q 5,000 unit Q12HR RISHI Administration Hydralazine HCl 50 mg 05/04/21 14:00 05/07/21 13:17 Hydralazine 25 Mg Tab PO Not Given Q8HR RISHI Hydrophilic Ointment 1 applic 05/05/21 15:21 Lip Therapy Vaseline TP Q2HR PRN Dry Lips Nitroglycerin/Dextrose 50 mg in 250 mls @ 3 mls/hr 05/04/21 10:00 05/05/21 04:57 Tridil Drip 50mg/250ml IV 170 mcg/min TITR RISHI 51 mls/hr Titration Protocol 10 MCG/MIN Fentanyl Citrate 2,000 mcg in 100 mls @ 4.082 mls/hr 05/05/21 16:00 05/07/21 08:55 Fentanyl Drip Premix IV 4 mcg/kg/hr TITR RISHI 16.329 mls/hr Administration Protocol 1 MCG/KG/HR Propofol 1,000 mg in 100 mls @ 2.449 mls/hr 05/05/21 16:00 05/05/21 17:12 Diprivan 10 Mg/Ml IV 5 mcg/kg/min TITR RISHI 2.449 mls/hr Administration Protocol 5 MCG/KG/MIN Lorazepam 0.5 mg 05/04/21 15:46 05/04/21 21:51 Lorazepam 2 Mg/Ml Vial IV 0.5 mg Q4H PRN Administration Anxiety Lorazepam 2 mg 05/04/21 23:15 05/05/21 09:10 Lorazepam 2 Mg/Ml Vial IV 2 mg Q1HR PRN Administration CIWA-Ar 8-15 Lorazepam 4 mg 05/04/21 23:15 05/05/21 10:00 Lorazepam 2 Mg/Ml Vial IV 4 mg Q1HR PRN Administration CIWA-Ar 16-25 Lorazepam 4 mg 05/04/21 23:15 05/05/21 12:10 Lorazepam 2 Mg/Ml Vial IV 4 mg Q15MIN PRN Administration CIWA-Ar >25 Metoprolol Tartrate 50 mg 05/06/21 14:00 05/07/21 10:33 Metoprolol Tartrate 50 Mg Tab PO Not Given BID RISHI Morphine Sulfate 2 mg 05/04/21 12:34 Morphine 4 Mg/1 Ml Inj IV Q4H PRN Pain , Severe (7-10) Multi-Ingred Cream/Lotion/Oil/Oint 1 applic 05/05/21 15:21 Mineral Oil/Petrolatum, White Ophth Oint 3.5 Gm OU Q4HR PRN Dry Eye(s) Ondansetron HCl 4 mg 05/04/21 12:34 05/04/21 21:51 Ondansetron 4 Mg/2 Ml Inj IV 4 mg Q8H PRN Administration Nausea And Vomiting Senna/Docusate Sodium 1 tab 05/05/21 22:00 05/07/21 10:33 Sennosides/Docusate Sodium 8.6/50 Mg Tab FEEDTUBE Not Given BID RISHI Sodium Chloride 10 ml 05/04/21 22:00 05/07/21 10:43 Sodium Chloride 0.9% 10 Ml Flush Syringe IV 10 ml BID RISHI Administration Sodium Chloride 10 ml 05/04/21 12:34 05/06/21 13:59 Sodium Chloride 0.9% 10 Ml Flush Syringe IV 10 ml PRN PRN Administration LINE FLUSH
[2021-05-07] MEDS: ACETAMINOPHEN 650 MG RECT SUPP PR PRN (15:54)
--- NOTE | 2021-05-07 16:25 | Progress Note ---
Assessment and Plan Assessment and plan: Assessment and plan #1 acute respiratory failure with hypoxia Patient is COVID-positive Patient is intubated Continue vent management #2. Hypertensive emergency Patient initiated on antihypertensives and IV hydralazine every 2 hours as needed #3 COVID pneumonia IV Decadron for now Not a candidate for remdesivir #4. YE IV fluids and nephrology recommendations appreciated #5 polysubstance abuse [facility] protocol #6. Hepatitis C by history #7 NSTEMI Echo 05/04/2021-EF 35 to 40%. Moderate concentric LVH. Moderate global hypokinesis of left ventricle. Mild mitral regurgitation. Mild pulmonary hypertension. Echocardiogram reviewed (08/27/2020): LVEF is 50 to 55%. Mild to moderate concentric LVF. Severe diastolic dysfunction is present (restrictive filling). Right ventricle is mildly hypokinetic. RVSP is 48 mmHg. No valvular abnormalities. Due to patient's renal function and elevated LFTs continue medical management Patient has been heparin drip for 48 hours. Heparin drip stopped patient is unstable for cath. #8 DVT prophylaxis On anticoagulation GI prophylaxis Critical care statement The high probability OF a clinically significant sudden or life-threatening deterioration of the cardiorespiratory system and endocrine system required my full and direct attention, intervention and postoperative management. The aggregate critical l care time was 40 minutes. The time is in addition to time spent performing reported procedures but includes the followin: Data review and interpretation 2: Patient assessment and monitoring of vital signs 3: Documentation 4:: Medication orders and management Total Time Spent with Patient (Minutes): 40 minutes History Interval history: 56-year-old male with a past medical history of smoking, A. fib, hypertension, and chronic medication noncompliance and homelessness presents to the hospital with complaints of dyspnea exertion x1 month progressively worsening for last 3 days. Patient also having intermittent left-sided chest tightness with activity. Patient complains of a persistent cough without fever. He is unvaccinated for COVID. Patient was admitted here August 2020 for bilateral pneumonia with hypoxia and was COVID-negative at that time. Patient was seen in the ED April 12 for chest pain and subsequently discharged with a refill his medications. Patient never filled the prescriptions and states he has not taking any of his meds for the past year because he cannot afford medications. He denies previous history of stress test. Patient denies any cough or cold- like symptoms. No headache or visual disturbances. Patient denies any associated shortness of breath or diaphoresis. 05/04/2021. Cardiology was considering patient for Diabetes Territory Manager. However, patient with elevated creatinine therefore will hold off on cath evaluation. Nephrology consultation for acute kidney injury. Etiology likely secondary to vasomotor nephropathy/dehydration. We will start IV fluid hydration. Check renal ultrasound to rule out obstructive uropathy. We will resume home medications for the accelerated hypertension 05/05/2021. Echocardiogram reveals EF 35-40% with moderate concentric left ventricular hypertrophy. Moderate global hypokinesis of left ventricle. Mild mitral regurgitation. Mild pulmonary hypertension. Troponins are believed to be elevated in the setting of acute kidney injury. No beta-blockers due to cocaine use continue heparin and nitro drip. Continue CIWA protocol. Await urine studies 05/06/2021. Patient decompensated yesterday with worsening respiratory failure and difficulty to protect airway. Patient was breathing sonorously, and hypoxic. Patient was intubated and currently is on mechanical ventilation. Patient with AC mode ventilation rate of 20, tidal volume 450, FiO2 40% and PEEP of 6. COVID PCR testing on 05/05/2021 was found to be positive. Echocardiogram completed on this admission shows worsening EF from August 2020. Echocardiogram now reveals moderate concentric left ventricular hypertrophy with moderate global hypokinesis and EF of 35-40%. Mild pulmonary hypertension. 05/07/2021 Patient intubated and on ventilator Blood pressure is high IV hydralazine 10 mg IV as needed Dobbhoff tube inserted for nutrition Hospitalist Physical - Physical exam Narrative exam: Patient is intubated and on vent - Constitutional Vitals: Temp Pulse Resp BP Pulse Ox 98.3 F 81 21 162/101 96 05/05/21 21:04 05/07/21 15:50 05/07/21 15:31 05/07/21 15:31 05/07/21 15:50 General appearance: Present: severe distress - Neck Neck: Present: supple - Respiratory Respiratory: bilateral: rhonchi, wheezing (Scattered) - Cardiovascular Heart rate: 86 Rhythm: irregularly irregular - Extremities Extremities: no ischemia, pulses intact - Abdominal General gastrointestinal: soft, non-tender, normal bowel sounds - Integumentary Integumentary: Present: clear, warm, dry - Psychiatric Psychiatric: other (Patient intubated) - Neurologic Neurologic: other (Patient intubated) - Allied Health Allied health notes reviewed: nursing, case management HEART Score - HEART Score EKG: Non-specific Age: 45-65 Risk factors: 1-2 risk factors Troponin: Troponin T 1.400 ng/mL (0.00-0.029) H* 05/04/21 13:34 Troponin: 1-3x normal limit - Critical Actions Critical Actions: 4-6 pts:12-16.6% risk of adverse cardiac event. Should be admitted Results - Labs CBC & Chem 7: 05/06/21 03:47 05/07/21 03:22 Labs: Laboratory Last Values WBC 12.9 K/mm3 (4.5-11.0) H 05/04/21 07:25 RBC 3.04 M/mm3 (3.65-5.03) L 05/04/21 07:25 Hgb 9.0 gm/dl (11.8-15.2) L 05/06/21 03:47 Hct 27.8 % (35.5-45.6) L 05/06/21 03:47 MCV 93 fl (84-94) 05/04/21 07:25 MCH 31 pg (28-32) 05/04/21 07:25 MCHC 34 % (32-34) 05/04/21 07:25 RDW 15.4 % (13.2-15.2) H 05/04/21 07:25 Plt Count 274 K/mm3 (140-440) 05/06/21 03:47 Lymph % (Auto) 11.4 % (13.4-35.0) L 05/04/21 07:25 [place] % (Auto) 10.1 % (0.0-7.3) H 05/04/21 07:25 Eos % (Auto) 0.1 % (0.0-4.3) 05/04/21 07:25 Baso % (Auto) 0.4 % (0.0-1.8) 05/04/21 07:25 Lymph # (Auto) 1.5 K/mm3 (1.2-5.4) 05/04/21 07:25 [place] # (Auto) 1.3 K/mm3 (0.0-0.8) H 05/04/21 07:25 Eos # (Auto) 0.0 K/mm3 (0.0-0.4) 05/04/21 07:25 Baso # (Auto) 0.1 K/mm3 (0.0-0.1) 05/04/21 07:25 Seg Neutrophils % 78.0 % (40.0-70.0) H 05/04/21 07:25 Seg Neutrophils # 10.0 K/mm3 (1.8-7.7) H 05/04/21 07:25 PT 15.1 Sec. (12.2-14.9) H 05/04/21 07:25 INR 1.07 (0.87-1.13) 05/04/21 07:25 APTT 31.9 Sec. (24.2-36.6) 05/04/21 07:25 D-Dimer 579.49 ng/mlDDU (0-234) H 05/04/21 07:25 Heparin Anti-Xa Level < 0.10 U.I./ml (0.3-0.7) L 05/07/21 07:44 ABG pH 7.405 pH Units (7.350-7.450) 05/07/21 03:45 ABG pCO2 35.5 mm Hg 05/07/21 03:45 ABG pO2 104.3 mm Hg (80.0-90.0) H 05/07/21 03:45 ABG HCO3 21.8 mmol/L (20.0-26.0) 05/07/21 03:45 ABG O2 Saturation 97.8 % (95.0-99.0) 05/07/21 03:45 ABG O2 Content 12.4 (0.0-44) 05/07/21 03:45 ABG Base Excess -2.6 mmol/L (-2.0-3.0) L 05/07/21 03:45 ABG Hemoglobin 9.1 gm/dl (14.0-18.0) L 05/07/21 03:45 ABG Carboxyhemoglobin 1.7 % (0.0-5.0) 05/07/21 03:45 ABG Methemoglobin 0.7 % (0.0-1.5) 05/07/21 03:45 Oxyhemoglobin 95.5 % (95.0-99.0) 05/07/21 03:45 FiO2 40 % 05/07/21 03:45 Sodium 145 mmol/L (137-145) 05/07/21 03:22 Potassium 3.7 mmol/L (3.6-5.0) 05/07/21 03:22 Chloride 107.1 mmol/L (98-107) H 05/07/21 03:22 Carbon Dioxide 20 mmol/L (22-30) L 05/07/21 03:22 Anion Gap 22 mmol/L 05/07/21 03:22 BUN 56 mg/dL (9-20) H 05/07/21 03:22 Creatinine 2.9 mg/dL (0.8-1.3) H 05/07/21 03:22 Estimated GFR 23 ml/min 05/07/21 03:22 BUN/Creatinine Ratio 19 % 05/07/21 03:22 Glucose 76 mg/dL (75-100) 05/07/21 03:22 POC Glucose 89 mg/dL (70-105) 05/07/21 14:30 Calcium 8.8 mg/dL (8.4-10.2) 05/07/21 03:22 Magnesium 2.20 mg/dL (1.7-2.3) 05/04/21 08:42 Total Bilirubin 1.50 mg/dL (0.1-1.2) H 05/04/21 07:25 AST 519 units/L (5-40) H 05/04/21 07:25 ALT 475 units/L (7-56) H 05/04/21 07:25 Alkaline Phosphatase 108 units/L (35-129) 05/04/21 07:25 Total Creatine Kinase 406 units/L (55-170) H 05/04/21 08:42 Troponin T 1.400 ng/mL (0.00-0.029) H* 05/04/21 13:34 Total Protein 7.2 g/dL (6.3-8.2) 05/04/21 07:25 Albumin 3.9 g/dL (3.9-5) 05/04/21 07:25 Albumin/Globulin Ratio 1.2 % 05/04/21 07:25 Triglycerides 62 mg/dL (2-149) 05/04/21 07:25 Cholesterol 140 mg/dL (50-199) 05/04/21 07:25 LDL Cholesterol Direct 89 mg/dL (50-130) 05/04/21 07:25 HDL Cholesterol 48 mg/dL (40-59) 05/04/21 07:25 Cholesterol/HDL Ratio 2.91 % 05/04/21 07:25 Urine Color Yellow (Yellow) 05/05/21 09:57 Urine Turbidity Slightly-cloudy (Clear) 05/05/21 09:57 Urine pH 5.0 (5.0-7.0) 05/05/21 09:57 Ur Specific [place] 1.014 (1.003-1.030) 05/05/21 09:57 Urine Protein <15 mg/dl mg/dL (Negative) 05/05/21 09:57 Urine Glucose (UA) Neg mg/dL (Negative) 05/05/21 09:57 Urine Ketones Neg mg/dL (Negative) 05/05/21 09:57 Urine Blood Neg (Negative) 05/05/21 09:57 Urine Nitrite Neg (Negative) 05/05/21 09:57 Urine Bilirubin Neg (Negative) 05/05/21 09:57 Urine Urobilinogen < 2.0 mg/dL (<2.0) 05/05/21 09:57 Ur Leukocyte Esterase Neg (Negative) 05/05/21 09:57 Urine WBC (Auto) 3.0 /HPF (0.0-6.0) 05/05/21 09:57 Urine RBC (Auto) < 1.0 /HPF (0.0-6.0) 05/05/21 09:57 Urine Mucus Few /HPF 05/05/21 09:57 Urine Opiates Screen Negative 05/04/21 Unknown Urine Methadone Screen Negative 05/04/21 Unknown Ur Barbiturates Screen Negative 05/04/21 Unknown Ur Phencyclidine Scrn Negative 05/04/21 Unknown Ur Amphetamines Screen Positive 05/04/21 Unknown U Benzodiazepines Scrn Negative 05/04/21 Unknown Urine Cocaine Screen Negative 05/04/21 Unknown U Marijuana (THC) Screen Negative 05/04/21 Unknown Drugs of Abuse Note Disclamer 05/04/21 Unknown Coronavirus (PCR) Positive (Negative) A 05/05/21 08:30 Hepatitis A IgM Ab Non-reactive (NonReactive) 05/05/21 03:40 Hep Bs Antigen Non-reactive (Negative) 05/05/21 03:40 Hep B Core IgM Ab Non-reactive (NonReactive) 05/05/21 03:40 Hepatitis C Antibody Reactive (NonReactive) A 05/05/21 03:40 Microbiology: Microbiology 05/05/21 17:15 Tracheal Aspirate Sputum Culture - Final - Imaging and Cardiology Imaging and Cardiology: Chest x-ray Increasing opacities in failure lesions in lower lung Overall opacities appear improved no pneumothorax. [place]/IV: Voiding Method Condom Catheter Active Medications - Current Medications Current Medications: Generic Name Dose Route Start Last Admin Trade Name Freq PRN Reason Stop Dose Admin Acetaminophen 650 mg 05/04/21 12:34 Acetaminophen 325 Mg Tab PO Q4H PRN Pain MILD(1-3)/Fever >100.5/MARIA Acetaminophen 650 mg 05/07/21 16:00 05/07/21 15:54 Acetaminophen 650 Mg Rect Supp DC 650 mg Q4H PRN Administration Pain, Mild (1-3) Hydrocodone Bitart/Acetaminophen 2 each 05/04/21 12:34 Hydrocodone/Acetaminophen 5-325 Mg Tab PO Q6H PRN Pain, Moderate (4-6) Aspirin 81 mg 05/06/21 14:00 05/07/21 10:43 Aspirin 81 Mg Tab Chew PO Not Given QDAY RISHI Famotidine 10 mg 05/06/21 11:30 05/07/21 10:42 Famotidine 20 Mg/2 Ml Inj IV 10 mg BID RISHI Administration Fentanyl 50 mcg 05/05/21 15:21 Fentanyl 100 Mcg/2 Ml Inj IV Q10MIN PRN ANALGESIA Heparin Sodium (Porcine) 5,000 unit 05/06/21 22:00 05/07/21 10:41 Heparin 5,000 Unit/1 Ml Vial SUB-Q 5,000 unit Q12HR RISHI Administration Hydralazine HCl 50 mg 05/04/21 14:00 05/07/21 13:17 Hydralazine 25 Mg Tab PO Not Given Q8HR RISHI Hydralazine HCl 10 mg 05/07/21 16:16 Hydralazine 20 Mg/1 Ml Inj IV Q2H PRN Blood Pressure Hydrophilic Ointment 1 applic 05/05/21 15:21 Lip Therapy Vaseline TP Q2HR PRN Dry Lips Nitroglycerin/Dextrose 50 mg in 250 mls @ 3 mls/hr 05/04/21 10:00 05/05/21 04:57 Tridil Drip 50mg/250ml IV 170 mcg/min TITR RISHI 51 mls/hr Titration Protocol 10 MCG/MIN Fentanyl Citrate 2,000 mcg in 100 mls @ 4.082 mls/hr 05/05/21 16:00 05/07/21 08:55 Fentanyl Drip Premix IV 4 mcg/kg/hr TITR RISHI 16.329 mls/hr Administration Protocol 1 MCG/KG/HR Propofol 1,000 mg in 100 mls @ 2.449 mls/hr 05/05/21 16:00 05/05/21 17:12 Diprivan 10 Mg/Ml IV 5 mcg/kg/min TITR RISHI 2.449 mls/hr Administration Protocol 5 MCG/KG/MIN Sodium Chloride 1,000 mls @ 75 mls/hr 05/07/21 14:00 Nacl 0.45% 1000 Ml IV DIRECT RISHI Lorazepam 0.5 mg 05/04/21 15:46 05/04/21 21:51 Lorazepam 2 Mg/Ml Vial IV 0.5 mg Q4H PRN Administration Anxiety Lorazepam 2 mg 05/04/21 23:15 05/05/21 09:10 Lorazepam 2 Mg/Ml Vial IV 2 mg Q1HR PRN Administration CIWA-Ar 8-15 Lorazepam 4 mg 05/04/21 23:15 05/05/21 10:00 Lorazepam 2 Mg/Ml Vial IV 4 mg Q1HR PRN Administration CIWA-Ar 16-25 Lorazepam 4 mg 05/04/21 23:15 05/05/21 12:10 Lorazepam 2 Mg/Ml Vial IV 4 mg Q15MIN PRN Administration CIWA-Ar >25 Metoprolol Tartrate 50 mg 05/06/21 14:00 05/07/21 10:33 Metoprolol Tartrate 50 Mg Tab PO Not Given BID RISHI Morphine Sulfate 2 mg 05/04/21 12:34 Morphine 4 Mg/1 Ml Inj IV Q4H PRN Pain , Severe (7-10) Multi-Ingred Cream/Lotion/Oil/Oint 1 applic 05/05/21 15:21 Mineral Oil/Petrolatum, White Ophth Oint 3.5 Gm OU Q4HR PRN Dry Eye(s) Ondansetron HCl 4 mg 05/04/21 12:34 05/04/21 21:51 Ondansetron 4 Mg/2 Ml Inj IV 4 mg Q8H PRN Administration Nausea And Vomiting Senna/Docusate Sodium 1 tab 05/05/21 22:00 05/07/21 10:33 Sennosides/Docusate Sodium 8.6/50 Mg Tab FEEDTUBE Not Given BID RISHI Sodium Chloride 10 ml 05/04/21 22:00 05/07/21 10:43 Sodium Chloride 0.9% 10 Ml Flush Syringe IV 10 ml BID RISHI Administration Sodium Chloride 10 ml 05/04/21 12:34 05/06/21 13:59 Sodium Chloride 0.9% 10 Ml Flush Syringe IV 10 ml PRN PRN Administration LINE FLUSH Nutrition/Malnutrition Assess - Dietary Evaluation Nutrition/Malnutrition Findings: Nutrition Notes Start: 05/05/21 16 :15 Freq: Status: Active Protocol: Document 05/05/21 16:15 MORALES (Rec: 05/05/21 16:19 MORALES [email or web address]) Nutrition Notes Need for Assessment generated from: MD Order Initial or Follow up Brief Note Current Diet NPO (since 05/05 00:01). Height 5 ft 7 in Weight 81.647 kg [place] Body Weight (kg) 67.27 BMI 28.1 Weight change and time frame None reported at admission. Weight Status Overweight Subjective/Other Information RD consult for evaluation of nutritional intake. Pt is currently on NPO, not candidate for evaluation at the time, will assess at F/U if feasible. Percent of energy/protein needs met: Pt is currently on NPO. Nutrition Intervention Follow-Up By: 05/12/21 Additional Comments Pt will be assessed at F/U if feasible. Continue monitoring food tolerance, %PO intake of meals , and BM.
[2021-05-07] MEDS: hydrALAZINE 20 MG/1 ML INJ IV PRN ×2 (17:16→20:26)
--- NOTE | 2021-05-07 17:59 | Progress Note ---
Assessment and Plan Acute Respiratory Failure COVID-19 PNA NSTEMI HFrEF // Cardiomyopathy (EF reduced to 35-40% on echo this admission) Accelerated HTN YE Anemia Elevated LFTs H/o Hepatitis C Medical Non-Compliance +UDS (amphetamines) H/o Polysubstance Abuse H/o Tobacco Abuse H/o Paroxysmal SVT Echo 05/04/2021: EF 35-40%, moderate LVH, moderate global hypokinesis of LV, mild MR, mild pulmonary HTN. Echo 08/27/2020: EF 50-55%, mild-moderate LVH, severe diastolic dysfunction, RV mildly hypokinetic, RVSP 48mmHg, no significant valvular abnormalities. Plan: Pt has completed IV heparin therapy x 48 hrs. Continue SQ heparin for DVT prophylaxis. In light of renal dysfunction and critical illness, recommend medical mgmt at this time. Continue ASA. F/u CMP in AM. Start statin if LFTs have improved. Continue BB when PO intake is resumed. Ischemic evaluation may be considered when adequately stabilize pending clinical course. Closely monitor volume status while pt is receiving IV fluids. Pt seen in conjunction with Dr. Gamez, who agrees with the assessment and plan of care. - Patient Problems (1) NSTEMI (non-ST elevated myocardial infarction) Current Visit: Yes Status: Acute Subjective Date of service: 05/07/21 Principal diagnosis: NSTEMI Interval history: No acute events overnight. Remains intubated/sedated. Still not receiving PO meds. Objective Vital Signs Pulse Resp BP Pulse Ox 05/07/21 17:53 85 05/07/21 17:16 82 162/101 05/07/21 15:50 81 96 05/07/21 15:31 82 21 162/101 98 05/07/21 15:01 85 20 165/96 98 05/07/21 14:31 83 20 164/98 98 05/07/21 14:01 80 20 159/98 98 05/07/21 13:31 81 21 156/97 98 05/07/21 13:17 82 168/98 05/07/21 13:01 83 17 168/98 98 05/07/21 12:31 83 18 162/95 98 05/07/21 12:01 83 18 165/98 98 05/07/21 11:44 89 168/101 98 05/07/21 11:31 85 22 168/101 98 05/07/21 11:01 86 20 170/100 98 05/07/21 10:31 85 21 169/98 98 05/07/21 10:01 86 20 170/99 97 05/07/21 09:31 87 25 H 175/102 98 05/07/21 09:01 89 27 H 176/104 98 05/07/21 08:31 89 24 167/99 97 05/07/21 08:01 88 21 167/97 97 05/07/21 07:46 91 H 174/102 98 05/07/21 07:31 93 H 27 H 174/102 97 05/07/21 07:01 100 H 30 H 167/111 96 05/07/21 06:45 102 H 43 H 179/110 98 05/07/21 06:31 93 H 29 H 179/110 98 05/07/21 06:15 90 21 178/104 97 05/07/21 06:01 89 25 H 178/104 98 05/07/21 05:45 88 26 H 177/104 98 05/07/21 05:31 88 27 H 177/104 98 05/07/21 05:15 88 23 178/104 98 05/07/21 05:01 90 24 178/104 98 05/07/21 04:45 89 25 H 176/102 98 05/07/21 04:35 84 4 L 160/99 99 05/07/21 04:31 88 26 H 176/102 98 05/07/21 04:15 88 24 173/101 98 05/07/21 04:01 87 24 173/101 98 05/07/21 03:45 88 26 H 175/103 98 05/07/21 03:31 87 25 H 175/103 98 05/07/21 03:15 88 25 H 168/101 98 05/07/21 03:01 86 26 H 168/101 98 05/07/21 02:45 85 25 H 171/102 98 05/07/21 02:31 87 26 H 171/102 98 05/07/21 02:15 86 26 H 167/99 98 05/07/21 02:01 85 24 167/99 98 05/07/21 01:45 85 25 H 169/102 98 05/07/21 01:31 85 21 169/102 98 05/07/21 01:15 86 25 H 165/99 98 05/07/21 01:01 84 22 165/99 98 05/07/21 00:45 84 21 166/101 98 05/07/21 00:31 84 23 166/101 98 05/07/21 00:15 85 22 162/97 98 05/07/21 00:01 84 24 162/97 98 05/06/21 23:45 83 23 166/98 98 05/06/21 23:31 83 23 166/98 99 05/06/21 23:15 83 24 166/98 98 05/06/21 23:01 83 22 166/98 98 05/06/21 22:45 84 22 167/101 98 05/06/21 22:31 84 21 167/101 99 05/06/21 22:15 84 22 165/99 99 05/06/21 22:01 85 24 165/99 98 05/06/21 21:45 84 22 162/99 99 05/06/21 21:31 84 25 H 162/99 99 05/06/21 21:15 84 24 164/98 99 05/06/21 21:01 84 22 164/98 99 05/06/21 20:45 84 24 165/99 99 05/06/21 20:31 83 21 162/99 99 05/06/21 20:15 85 23 164/103 99 05/06/21 20:01 84 24 165/101 99 05/06/21 19:45 84 24 161/99 99 05/06/21 19:35 84 2 L 160/99 98 05/06/21 19:31 84 22 160/100 99 - Physical Examination General: Other (intubated and sedated) - Labs and Meds Comprehensive Metabolic Panel 05/07/21 Range/Units 03:22 Sodium 145 (137-145) mmol/L Potassium 3.7 (3.6-5.0) mmol/L Chloride 107.1 H (98-107) mmol/L Carbon Dioxide 20 L (22-30) mmol/L BUN 56 H (9-20) mg/dL Creatinine 2.9 H (0.8-1.3) mg/dL Glucose 76 (75-100) mg/dL Calcium 8.8 (8.4-10.2) mg/dL - Imaging and Cardiology EKG: report reviewed, image reviewed Echo: report reviewed, other - EKG Sinus rhythms and dysrhythmias: sinus rhythm Ventricular dysrhythmias: ventricular premature com Chamber hypertrophy or enlargement: left ventricular hypertro - Allied health notes Allied health notes reviewed: nursing
[2021-05-07] MEDS: ACETAMINOPHEN 325 MG TAB PO PRN (20:52)
[2021-05-07] MEDS: SODIUM CHLORIDE 0.45% 1000 ML 1,000 ML IV SCH (22:27)
[2021-05-08 03:38] LABS: ABG Base Excess -0.7 mmol/L (-2.0-3.0); ABG Methemoglobin 0.5 % (0.0-1.5); ABG Oxygen Saturation 98.7 % (95.0-99.0); ABG PCO2 39.6 mm Hg; ABG PH 7.401 pH Units (7.350-7.450)
[2021-05-08 05:04] LABS: Basophils # (Auto) 0.1 K/mm3 (0.0-0.1); Basophils % (Auto) 0.7 % (0.0-1.8); Eosinophils % (Auto) 0.1 % (0.0-4.3); Hematocrit 29.2 % (35.5-45.6); Hemoglobin 9.5 gm/dl (11.8-15.2); Lymphocytes % (Auto) 8.1 % (13.4-35.0); Mean Corpuscular HGB Conc 33 % (32-34); Mean Corpuscular Volume 97 fl (84-94); Monocytes # (Auto) 1.4 K/mm3 (0.0-0.8); Platelet Count 372 K/mm3 (140-440); Red Blood Count 3.02 M/mm3 (3.65-5.03); Red Cell Distribution Width 16.7 % (13.2-15.2)
[2021-05-08 06:12] LABS: Alanine Aminotransferase TNR units/L (7-56); BUN/Creatinine Ratio TNR; Blood Urea Nitrogen TNR mg/dL (9-20); Calcium TNR mg/dL (8.4-10.2)
[2021-05-08 06:13] LABS: Albumin TNR g/dL (3.9-5); Hemolysis Index TNR
[2021-05-08] MEDS: hydrALAZINE 25 MG TAB PO SCH ×3 (06:28→22:19)
--- NOTE | 2021-05-08 07:13 | XRay Report ---
CHEST 1 VIEW 05/08/2021 6:26 AM INDICATION / CLINICAL INFORMATION: follow up respiratory failure. COMPARISON: 05/07/2021 FINDINGS: SUPPORT DEVICES: ET tube is 6 cm above the chano HEART / MEDIASTINUM: Cardiomegaly LUNGS / PLEURA: Increased pulmonary vascularity left pleural effusion No pneumothorax. Signer Name: Master Cantu MD Signed: 05/08/2021 7:08 AM Workstation Name: [id number]
[2021-05-08 08:32] LABS: Albumin 3.1 g/dL (3.9-5); Calcium 8.9 mg/dL (8.4-10.2)
[2021-05-08] MEDS: fentaNYL DRIP Premix 2,000 MCG/100 ML BAG IV SCH (09:25)
[2021-05-08] MEDS: FAMOTIDINE 20 MG/2 ML INJ IV SCH ×2 (11:08→22:28)
[2021-05-08] MEDS: HEPARIN 5,000 UNIT/1 ML VIAL SUB-Q SCH ×2 (11:08→22:28)
[2021-05-08] MEDS: METOPROLOL TARTRATE 50 MG TAB PO SCH ×2 (11:08→22:19)
[2021-05-08] MEDS: ASPIRIN 81 MG TAB CHEW PO SCH (11:09)
[2021-05-08] MEDS: SENNOSIDES/DOCUSATE SODIUM 8.6/50 MG TAB FEEDTUBE SCH ×2 (11:09→22:19)
--- NOTE | 2021-05-08 12:35 | Progress Note ---
Assessment and Plan Assessment and plan: 56-year-old male with a past medical history of smoking, A. fib, hypertension, and chronic medication noncompliance and homelessness presents to the hospital with complaints of dyspnea exertion x1 month progressively worsening for last 3 days. Patient also having intermittent left-sided chest tightness with activity. Patient complains of a persistent cough without fever. He is unvaccinated for COVID. Patient was admitted here August 2020 for bilateral pneumonia with hypoxia and was COVID-negative at that time. Patient was seen in the ED April 12 for chest pain and subsequently discharged with a refill his medications. Patient never filled the prescriptions and states he has not taking any of his meds for the past year because he cannot afford medications. He denies previous history of stress test. Patient denies any cough or cold- like symptoms. No headache or visual disturbances. Patient denies any associated shortness of breath or diaphoresis. 05/04/2021. Cardiology was considering patient for [facility]. However, patient with elevated creatinine therefore will hold off on cath evaluation. Nephrology consultation for acute kidney injury. Etiology likely secondary to vasomotor nephropathy/dehydration. We will start IV fluid hydration. Check renal ultrasound to rule out obstructive uropathy. We will resume home medications for the accelerated hypertension 05/05/2021. Echocardiogram reveals EF 35-40% with moderate concentric left ventricular hypertrophy. Moderate global hypokinesis of left ventricle. Mild mitral regurgitation. Mild pulmonary hypertension. Troponins are believed to be elevated in the setting of acute kidney injury. No beta-blockers due to co miracle use continue heparin and nitro drip. Continue CIWA protocol. Await urine studies 05/06/2021. Patient decompensated yesterday with worsening respiratory failure and difficulty to protect airway. Patient was breathing sonorously, and hypoxic. Patient was intubated and currently is on mechanical ventilation. Patient with AC mode ventilation rate of 20, tidal volume 450, FiO2 40% and PEEP of 6. COVID PCR testing on 05/05/2021 was found to be positive. Echocardiogram completed on this admission shows worsening EF from August 2020. Echocardiogram now reveals moderate concentric left ventricular hypertrophy with moderate global hypokinesis and EF of 35-40%. Mild pulmonary hypertension. 05/07/2021 Patient intubated and on ventilator Blood pressure is high IV hydralazine 10 mg IV as needed Dobbhoff tube inserted for nutrition 05/08: Continue current management, renal stable, LFTs stable and if improved will start on statin therapy. Chest x-ray Increasing opacities in failure lesions in lower lung Overall opacities appear improved no pneumothorax. #1 acute respiratory failure with hypoxia Patient is COVID-positive Patient is intubated Continue vent management #2. Hypertensive emergency Patient initiated on antihypertensives and IV hydralazine every 2 hours as needed #3 COVID pneumonia IV Decadron for now Not a candidate for remdesivir #4. YE IV fluids and nephrology recommendations appreciated #5 polysubstance abuse [facility] protocol #6. Hepatitis C by history #7 NSTEMI Echo 05/04/2021-EF 35 to 40%. Moderate concentric LVH. Moderate global hypokinesis of left ventricle. Mild mitral regurgitation. Mild pulmonary hyp ertension. Echocardiogram reviewed (08/27/2020): LVEF is 50 to 55%. Mild to moderate concentric LVF. Severe diastolic dysfunction is present (restrictive filling). Right ventricle is mildly hypokinetic. RVSP is 48 mmHg. No valvular abnormalities. Due to patient's renal function and elevated LFTs continue medical management Patient has been heparin drip for 48 hours. Heparin drip stopped patient is unstable for cath, Medical management recommended #8 DVT prophylaxis On anticoagulation GI prophylaxis Critical care statement The high probability OF a clinically significant sudden or life-threatening deterioration of the cardiorespiratory system and endocrine system required my full and direct attention, intervention and postoperative management. The aggregate critical l care time was 35 minutes. The time is in addition to time spent performing reported procedures but includes the followin: Data review and interpretation 2: Patient assessment and monitoring of vital signs 3: Documentation 4:: Medication orders and management Total Time Spent with Patient (Minutes): 35 minutes History Interval history: Patient seen and examined remains intubated and relatively sedated. Hospitalist Physical - Physical exam Narrative exam: General appearance: Present: severe distress - Neck Neck: Present: supple - Respiratory Respiratory: bilateral: rhonchi, wheezing (Scattered) - Cardiovascular Heart rate: 86 Rhythm: irregularly irregular - Extremities Extremities: no ischemia, pulses intact - Abdominal General gastrointestinal: soft, non-tender, normal bowel sounds - Integumentary Integumentary: Present: clear, warm, dry - Psychiatric Psychiatric: other (Patient intubated) - Neurologic Neurologic: other (Patient intubated) - Allied Health Allied health notes reviewed: nursing, case management - Constitutional Vitals: Temp Pulse Resp BP Pulse Ox 99.9 F H 75 20 156/101 98 05/08/21 04:00 05/08/21 11:16 05/08/21 11:16 05/08/21 11:16 05/08/21 11:16 General appearance: Present: severe distress HEART Score - HEART Score EKG: Non-specific Age: 45-65 Risk factors: 1-2 risk factors Troponin: Troponin T 1.400 ng/mL (0.00-0.029) H* 05/04/21 13:34 Troponin: 1-3x normal limit - Critical Actions Critical Actions: 4-6 pts:12-16.6% risk of adverse cardiac event. Should be admitted Results - Labs CBC & Chem 7: 05/08/21 04:34 05/08/21 07:30 Labs: Laboratory Last Values WBC 12.4 K/mm3 (4.5-11.0) H 05/08/21 04:34 RBC 3.02 M/mm3 (3.65-5.03) L 05/08/21 04:34 Hgb 9.5 gm/dl (11.8-15.2) L 05/08/21 04:34 Hct 29.2 % (35.5-45.6) L 05/08/21 04:34 MCV 97 fl (84-94) H 05/08/21 04:34 MCH 32 pg (28-32) 05/08/21 04:34 MCHC 33 % (32-34) 05/08/21 04:34 RDW 16.7 % (13.2-15.2) H 05/08/21 04:34 Plt Count 372 K/mm3 (140-440) 05/08/21 04:34 Lymph % (Auto) 8.1 % (13.4-35.0) L 05/08/21 04:34 [place] % (Auto) 11.0 % (0.0-7.3) H 05/08/21 04:34 Eos % (Auto) 0.1 % (0.0-4.3) 05/08/21 04:34 Baso % (Auto) 0.7 % (0.0-1.8) 05/08/21 04:34 Lymph # (Auto) 1.0 K/mm3 (1.2-5.4) L 05/08/21 04:34 [place] # (Auto) 1.4 K/mm3 (0.0-0.8) H 05/08/21 04:34 Eos # (Auto) 0.0 K/mm3 (0.0-0.4) 05/08/21 04:34 Baso # (Auto) 0.1 K/mm3 (0.0-0.1) 05/08/21 04:34 Seg Neutrophils % 80.1 % (40.0-70.0) H 05/08/21 04:34 Seg Neutrophils # 9.9 K/mm3 (1.8-7.7) H 05/08/21 04:34 PT 15.1 Sec. (12.2-14.9) H 05/04/21 07:25 INR 1.07 (0.87-1.13) 05/04/21 07:25 APTT 31.9 Sec. (24.2-36.6) 05/04/21 07:25 D-Dimer 579.49 ng/mlDDU (0-234) H 05/04/21 07:25 Heparin Anti-Xa Level < 0.10 U.I./ml (0.3-0.7) L 05/07/21 22:41 ABG pH 7.401 pH Units (7.350-7.450) 05/08/21 03:25 ABG pCO2 39.6 mm Hg 05/08/21 03:25 ABG pO2 139.0 mm Hg (80.0-90.0) H 05/08/21 03:25 ABG HCO3 24.0 mmol/L (20.0-26.0) 05/08/21 03:25 ABG O2 Saturation 98.7 % (95.0-99.0) 05/08/21 03:25 ABG O2 Content 12.2 (0.0-44) 05/08/21 03:25 ABG Base Excess -0.7 mmol/L (-2.0-3.0) 05/08/21 03:25 ABG Hemoglobin 8.8 gm/dl (14.0-18.0) L 05/08/21 03:25 ABG Carboxyhemoglobin 1.7 % (0.0-5.0) 05/08/21 03:25 ABG Methemoglobin 0.5 % (0.0-1.5) 05/08/21 03:25 Oxyhemoglobin 96.5 % (95.0-99.0) 05/08/21 03:25 FiO2 40 % 05/08/21 03:25 Sodium 145 mmol/L (137-145) 05/08/21 07:30 Potassium 4.0 mmol/L (3.6-5.0) 05/08/21 07:30 Chloride 110.5 mmol/L (98-107) H 05/08/21 07:30 Carbon Dioxide 22 mmol/L (22-30) 05/08/21 07:30 Anion Gap 17 mmol/L 05/08/21 07:30 BUN 59 mg/dL (9-20) H 05/08/21 07:30 Creatinine 2.8 mg/dL (0.8-1.3) H 05/08/21 07:30 Estimated GFR 23 ml/min 05/08/21 07:30 BUN/Creatinine Ratio 21 % 05/08/21 07:30 Glucose 103 mg/dL (75-100) H 05/08/21 07:30 POC Glucose 89 mg/dL (70-105) 05/07/21 14:30 Calcium 8.9 mg/dL (8.4-10.2) 05/08/21 07:30 Magnesium 2.20 mg/dL (1.7-2.3) 05/04/21 08:42 Total Bilirubin 1.00 mg/dL (0.1-1.2) 05/08/21 07:30 AST 39 units/L (5-40) 05/08/21 07:30 ALT 327 units/L (7-56) H 05/08/21 07:30 Alkaline Phosphatase 68 units/L (35-129) 05/08/21 07:30 Total Creatine Kinase 406 units/L (55-170) H 05/04/21 08:42 Troponin T 1.400 ng/mL (0.00-0.029) H* 05/04/21 13:34 Total Protein 6.7 g/dL (6.3-8.2) 05/08/21 07:30 Albumin 3.1 g/dL (3.9-5) L 05/08/21 07:30 Albumin/Globulin Ratio 0.9 % 05/08/21 07:30 Triglycerides 62 mg/dL (2-149) 05/04/21 07:25 Cholesterol 140 mg/dL (50-199) 05/04/21 07:25 LDL Cholesterol Direct 89 mg/dL (50-130) 05/04/21 07:25 HDL Cholesterol 48 mg/dL (40-59) 05/04/21 07:25 Cholesterol/HDL Ratio 2.91 % 05/04/21 07:25 Urine Color Yellow (Yellow) 05/05/21 09:57 Urine Turbidity Slightly-cloudy (Clear) 05/05/21 09:57 Urine pH 5.0 (5.0-7.0) 05/05/21 09:57 Ur Specific [place] 1.014 (1.003-1.030) 05/05/21 09:57 Urine Protein <15 mg/dl mg/dL (Negative) 05/05/21 09:57 Urine Glucose (UA) Neg mg/dL (Negative) 05/05/21 09:57 Urine Ketones Neg mg/dL (Negative) 05/05/21 09:57 Urine Blood Neg (Negative) 05/05/21 09:57 Urine Nitrite Neg (Negative) 05/05/21 09:57 Urine Bilirubin Neg (Negative) 05/05/21 09:57 Urine Urobilinogen < 2.0 mg/dL (<2.0) 05/05/21 09:57 Ur Leukocyte Esterase Neg (Negative) 05/05/21 09:57 Urine WBC (Auto) 3.0 /HPF (0.0-6.0) 05/05/21 09:57 Urine RBC (Auto) < 1.0 /HPF (0.0-6.0) 05/05/21 09:57 Urine Mucus Few /HPF 05/05/21 09:57 Urine Opiates Screen Negative 05/04/21 Unknown Urine Methadone Screen Negative 05/04/21 Unknown Ur Barbiturates Screen Negative 05/04/21 Unknown Ur Phencyclidine Scrn Negative 05/04/21 Unknown Ur Amphetamines Screen Positive 05/04/21 Unknown U Benzodiazepines Scrn Negative 05/04/21 Unknown Urine Cocaine Screen Negative 05/04/21 Unknown U Marijuana (THC) Screen Negative 05/04/21 Unknown Drugs of Abuse Note Disclamer 05/04/21 Unknown Coronavirus (PCR) Positive (Negative) A 05/05/21 08:30 Hepatitis A IgM Ab Non-reactive (NonReactive) 05/05/21 03:40 Hep Bs Antigen Non-reactive (Negative) 05/05/21 03:40 Hep B Core IgM Ab Non-reactive (NonReactive) 05/05/21 03:40 Hepatitis C Antibody Reactive (NonReactive) A 05/05/21 03:40 Microbiology: Microbiology 05/07/21 16:16 Peripheral/Venous Blood Culture - Preliminary Culture in Progress 05/07/21 16:28 Peripheral/Venous Blood Culture - Preliminary Culture in Progress [place]/IV: Voiding Method Condom Catheter Active Medications - Current Medications Current Medications: Generic Name Dose Route Start Last Admin Trade Name Freq PRN Reason Stop Dose Admin Acetaminophen 650 mg 05/04/21 12:34 05/07/21 20:52 Acetaminophen 325 Mg Tab PO 650 mg Q4H PRN Administration Pain MILD(1-3)/Fever >100.5/MARIA Acetaminophen 650 mg 05/07/21 16:00 05/07/21 15:54 Acetaminophen 650 Mg Rect Supp [place] 650 mg Q4H PRN Administration Pain, Mild (1-3) Hydrocodone Bitart/Acetaminophen 2 each 05/04/21 12:34 Hydrocodone/Acetaminophen 5-325 Mg Tab PO Q6H PRN Pain, Moderate (4-6) Aspirin 81 mg 05/06/21 14:00 05/08/21 11:09 Aspirin 81 Mg Tab Chew PO 81 mg QDAY RISHI Administration Dexamethasone 8 mg 05/08/21 12:00 Dexamethasone 4 Mg/Ml Vial IV 05/17/21 10:01 Q24HR RISHI Famotidine 10 mg 05/06/21 11:30 05/08/21 11:08 Famotidine 20 Mg/2 Ml Inj IV 10 mg BID RISHI Administration Fentanyl 50 mcg 05/05/21 15:21 Fentanyl 100 Mcg/2 Ml Inj IV Q10MIN PRN ANALGESIA Heparin Sodium (Porcine) 5,000 unit 05/06/21 22:00 05/08/21 11:08 Heparin 5,000 Unit/1 Ml Vial SUB-Q 5,000 unit Q12HR RISHI Administration Hydralazine HCl 50 mg 05/04/21 14:00 05/08/21 06:28 Hydralazine 25 Mg Tab PO 50 mg Q8HR RISHI Administration Hydralazine HCl 10 mg 05/07/21 16:16 05/07/21 20:26 Hydralazine 20 Mg/1 Ml Inj IV 10 mg Q2H PRN Administration Blood Pressure Hydrophilic Ointment 1 applic 05/05/21 15:21 Lip Therapy Vaseline TP Q2HR PRN Dry Lips Nitroglycerin/Dextrose 50 mg in 250 mls @ 3 mls/hr 05/04/21 10:00 05/05/21 04:57 Tridil Drip 50mg/250ml IV 170 mcg/min TITR RISHI 51 mls/hr Titration Protocol 10 MCG/MIN Fentanyl Citrate 2,000 mcg in 100 mls @ 4.082 mls/hr 05/05/21 16:00 05/08/21 09:25 Fentanyl Drip Premix IV 3 mcg/kg/hr TITR RISHI 12.247 mls/hr Administration Protocol 1 MCG/KG/HR Propofol 1,000 mg in 100 mls @ 2.449 mls/hr 05/05/21 16:00 05/07/21 19:00 Diprivan 10 Mg/Ml IV Infused TITR RISHI Titration Protocol 5 MCG/KG/MIN Sodium Chloride 1,000 mls @ 75 mls/hr 05/07/21 14:00 05/07/21 22:27 Nacl 0.45% 1000 Ml IV 75 mls/hr DIRECT RISHI Administration Lorazepam 0.5 mg 05/04/21 15:46 05/04/21 21:51 Lorazepam 2 Mg/Ml Vial IV 0.5 mg Q4H PRN Administration Anxiety Lorazepam 2 mg 05/04/21 23:15 05/05/21 09:10 Lorazepam 2 Mg/Ml Vial IV 2 mg Q1HR PRN Administration CIWA-Ar 8-15 Lorazepam 4 mg 05/04/21 23:15 05/05/21 10:00 Lorazepam 2 Mg/Ml Vial IV 4 mg Q1HR PRN Administration CIWA-Ar 16-25 Lorazepam 4 mg 05/04/21 23:15 05/05/21 12:10 Lorazepam 2 Mg/Ml Vial IV 4 mg Q15MIN PRN Administration CIWA-Ar >25 Metoprolol Tartrate 50 mg 05/06/21 14:00 05/08/21 11:08 Metoprolol Tartrate 50 Mg Tab PO 50 mg BID RISHI Administration Morphine Sulfate 2 mg 05/04/21 12:34 Morphine 4 Mg/1 Ml Inj IV Q4H PRN Pain , Severe (7-10) Multi-Ingred Cream/Lotion/Oil/Oint 1 applic 05/05/21 15:21 Mineral Oil/Petrolatum, White Ophth Oint 3.5 Gm OU Q4HR PRN Dry Eye(s) Ondansetron HCl 4 mg 05/04/21 12:34 05/04/21 21:51 Ondansetron 4 Mg/2 Ml Inj IV 4 mg Q8H PRN Administration Nausea And Vomiting Senna/Docusate Sodium 1 tab 05/05/21 22:00 05/08/21 11:09 Sennosides/Docusate Sodium 8.6/50 Mg Tab FEEDTUBE 1 tab BID RISHI Administration Sodium Chloride 10 ml 05/04/21 22:00 05/08/21 11:09 Sodium Chloride 0.9% 10 Ml Flush Syringe IV 10 ml BID RISHI Administration Sodium Chloride 10 ml 05/04/21 12:34 05/06/21 13:59 Sodium Chloride 0.9% 10 Ml Flush Syringe IV 10 ml PRN PRN Administration LINE FLUSH Nutrition/Malnutrition Assess - Dietary Evaluation Nutrition/Malnutrition Findings: Nutrition Notes Start: 05/05/21 16:15 Freq: Status: Active Protocol: Document 05/05/21 16:15 MORALES (Rec: 05/05/21 16:19 MORALES [email or web address]) Nutrition Notes Need for Assessment generated from: MD Order Initial or Follow up Brief Note Current Diet NPO (since 05/05 00:01). Height 5 ft 7 in Weight 81.647 kg [place] Body Weight (kg) 67.27 BMI 28.1 Weight change and time frame None reported at admission. Weight Status Overweight Subjective/Other Information RD consult for evaluation of nutritional intake. Pt is currently on NPO, not candidate for evaluation at the time, will assess at F/U if feasible. Percent of energy/protein needs met: Pt is currently on NPO. Nutrition Intervention Follow-Up By: 05/12/21 Additional Comments Pt will be assessed at F/U if feasible. Continue monitoring food tolerance, %PO intake of meals , and BM.
[2021-05-08] MEDS: dexAMETHasone 4 MG/ML VIAL IV SCH (13:00)
[2021-05-08] MEDS: SODIUM CHLORIDE 0.45% 1000 ML 1,000 ML IV SCH (14:31)
--- NOTE | 2021-05-08 18:41 | Progress Note ---
Assessment and Plan Acute Respiratory Failure COVID-19 PNA NSTEMI HFrEF // Cardiomyopathy (EF reduced to 35-40% on echo this admission) Accelerated HTN YE Anemia Elevated LFTs H/o Hepatitis C Medical Non-Compliance +UDS (amphetamines) H/o Polysubstance Abuse H/o Tobacco Abuse H/o Paroxysmal SVT Echo 05/04/2021: EF 35-40%, moderate LVH, moderate global hypokinesis of LV, mild MR, mild pulmonary HTN. Echo 08/27/2020: EF 50-55%, mild-moderate LVH, severe diastolic dysfunction, RV mildly hypokinetic, RVSP 48mmHg, no significant valvular abnormalities. Plan: Pt has completed IV heparin therapy x 48 hrs. Continue SQ heparin for DVT prophylaxis. In light of renal dysfunction and critical illness, recommend medical mgmt at this time. Continue ASA. F/u CMP in AM. Start statin if LFTs have improved. Continue BB. Ischemic evaluation may be considered when adequately stabilized pending clinical course. Closely monitor volume status while pt is receiving IV fluids. Pt seen in conjunction with Dr. Gamez, who agrees with the assessment and plan of care. - Patient Problems (1) NSTEMI (non-ST elevated myocardial infarction) Current Visit: Yes Status: Acute Subjective Date of service: 05/08/21 Principal diagnosis: NSTEMI Interval history: No acute events overnight. Remains intubated/sedated. Objective Last Vital Signs Temp 99.9 F H 05/08/21 04:00 Pulse 70 05/08/21 17:46 Resp 19 05/08/21 17:46 BP 143/93 05/08/21 17:46 Pulse Ox 98 05/08/21 17:46 - Physical Examination General: Other (intubated and sedated) Cardiac: Positive: Reg Rate and Rhythm Lungs: Positive: Ventilated Respirations Neuro: Positive: Other (sedated) Extremities: Absent: edema - Labs and Meds Cardiac Enzymes 05/08/21 05/08/21 Range/Units 04:34 07:30 AST TNR 39 CBC 05/08/21 Range/Units 04:34 WBC 12.4 H (4.5-11.0) K/mm3 RBC 3.02 L (3.65-5.03) M/mm3 Hgb 9.5 L (11.8-15.2) gm/dl Hct 29.2 L (35.5-45.6) % Plt Count 372 (140-440) K/mm3 Lymph # (Auto) 1.0 L (1.2-5.4) K/mm3 [place] # (Auto) 1.4 H (0.0-0.8) K/mm3 Eos # (Auto) 0.0 (0.0-0.4) K/mm3 Baso # (Auto) 0.1 (0.0-0.1) K/mm3 Comprehensive Metabolic Panel 05/08/21 05/08/21 Range/Units 04:34 07:30 Sodium TNR 145 Potassium TNR 4.0 Chloride TNR 110.5 H Carbon Dioxide TNR 22 BUN TNR 59 H Creatinine TNR 2.8 H Glucose TNR 103 H Calcium TNR 8.9 AST TNR 39 ALT TNR 327 H Alkaline Phosphatase TNR 68 Total Protein TNR 6.7 Albumin TNR 3.1 L - Imaging and Cardiology EKG: report reviewed, image reviewed Echo: report reviewed - EKG Sinus rhythms and dysrhythmias: sinus rhythm Ventricular dysrhythmias: ventricular premature com Chamber hypertrophy or enlargement: left ventricular hypertro - Allied health notes Allied health notes reviewed: nursing
--- NOTE | 2021-05-08 18:51 | Progress Note ---
Assessment and Plan Acute hypoxic resp failure on MVS COVID positive NSTEMI Acute kidney injury Cardiomyopathy EF 35-40% History of hepatitis C Elevated D-dimer. Low probability for PE seen on VQ scan Tobacco abuse Polysubstance abusepatient with positive methamphetamines and has a history of cocaine use Anemia Daily assessment for readiness to wean, SAT/SBTn Conservative fluid management as tolerated by renal function and hemodynamics Continue to monitor electrolytes and treat as clinically indicated Continue with enteric nutritional support - VAP bundle addressed, aspiration precautions - titrate supplemental oxygen to keep SpO2 88-90% - Bronchodilators with pulmonary hygiene per RT - continue accuchecks with glycemic control per SSI (While critically ill target blood glucose of 140-180 mg/dL; avoid hypoglycemia) - avoid nephrotoxins, renally dose all medications - avoid benzodiazepines, reduce the possibility of delirium - sedation target for RASS 0 to -1 -Propofol and Fentanyl - prn analgesia per pain score - Maintenance of sleep-wake cycle, avoid delirium - Stress ulcer prophylaxis -Therapeutic anticoagulation- heparin infusion - mobility, off loading and frequent turning per facility protocol for pressure ulcer prevention - Monitor hemodynamics closely -Supportive transfusions as clinically indicated to keep HgB >7g/dL - continue other care per attending / other consultants COVID SPECIFIC INTERVENTIONS - Appears to have incidental COVID infection- Remdesivir not administered secondary to renal failure - Monitor inflammatory markers per facility protocol - ferritin, D-dimer, CRP - therapeutic anticoagulation per system Protocol based on d-dimer and clinical considerations -on therapeutic heparin for NSTEMI - Contact and airborne isolation -Continue with Dexamethasone to complete course CONDITION: CRITICAL PROGNOSIS: GUARDED CODE STATUS: FULL CODE The high probability of a clinically significant, sudden or life-threatening deterioration of the [respiratory, cardiovascular & neurologic ] system(s) required my full and direct attention, intervention and personal management. The aggregate critical care time was [35] minutes without overlap. Time includes spent on; [x] Data Review and interpretation [x] Patient assessment and monitoring of vital signs [x] Documentation [x] Medication orders and management Subjective Date of service: 05/08/21 Principal diagnosis: NSTEMI Interval history: Follow up for acute hypoxemic resp failure on MVS, COVID infection;YE; Hypertension Seen and examined. Vitals, labs, medications, chart and imaging reviewed. MVS: +6/FIO2 40% Propofol and Fentanyl Discussed with respiratory and nursing care staff. Now up in the ICU . Objective Vital Signs - 12hr 05/08/21 05/08/21 05/08/21 07:00 07:16 07:30 Pulse Rate 74 75 72 Respiratory 20 20 20 Rate Blood Pressure 152/95 152/95 145/93 O2 Sat by Pulse 98 98 98 Oximetry 05/08/21 05/08/21 05/08/21 07:46 08:00 08:16 Pulse Rate 73 75 86 Respiratory 20 20 21 Rate Blood Pressure 145/93 153/95 153/95 O2 Sat by Pulse 98 98 93 Oximetry 05/08/21 05/08/21 05/08/21 08:30 08:46 09:00 Pulse Rate 82 96 H 92 H Respiratory 20 25 H 16 Rate Blood Pressure 157/98 157/98 172/103 O2 Sat by Pulse 98 97 94 Oximetry 05/08/21 05/08/21 05/08/21 09:16 09:27 09:30 Pulse Rate 101 H 88 87 Respiratory 28 H 20 Rate Blood Pressure 172/103 163/95 163/95 O2 Sat by Pulse 89 96 96 Oximetry 05/08/21 05/08/21 05/08/21 09:46 10:00 10:16 Pulse Rate 86 83 83 Respiratory 22 20 20 Rate Blood Pressure 163/95 171/101 171/101 O2 Sat by Pulse 97 97 98 Oximetry 05/08/21 05/08/21 05/08/21 10:30 10:46 11:00 Pulse Rate 79 77 79 Respiratory 20 20 20 Rate Blood Pressure 158/98 158/98 156/101 O2 Sat by Pulse 98 98 99 Oximetry 05/08/21 05/08/21 05/08/21 11:16 11:30 11:46 Pulse Rate 75 66 64 Respiratory 20 20 20 Rate Blood Pressure 156/101 152/95 152/95 O2 Sat by Pulse 98 99 98 Oximetry 05/08/21 05/08/21 05/08/21 12:00 12:16 12:30 Pulse Rate 62 63 63 Respiratory 20 20 20 Rate Blood Pressure 146/92 146/92 149/95 O2 Sat by Pulse 99 98 99 Oximetry 05/08/21 05/08/21 05/08/21 12:46 13:00 13:16 Pulse Rate 62 65 66 Respiratory 20 20 20 Rate Blood Pressure 149/95 148/93 148/93 O2 Sat by Pulse 99 99 99 Oximetry 01/05/08/21 05/08/21 13:30 13:46 14:00 Pulse Rate 64 66 65 Respiratory 20 20 20 Rate Blood Pressure 148/94 148/94 148/95 O2 Sat by Pulse 99 99 99 Oximetry 05/08/21 05/08/21 05/08/21 14:16 14:30 14:46 Pulse Rate 69 67 68 Respiratory 21 20 20 Rate Blood Pressure 148/95 151/95 151/95 O2 Sat by Pulse 98 99 99 Oximetry 05/08/21 05/08/21 05/08/21 15:00 15:16 15:30 Pulse Rate 68 74 Respiratory 20 20 17 Rate Blood Pressure 153/99 153/99 159/104 O2 Sat by Pulse 99 94 100 Oximetry 05/08/21 05/08/21 05/08/21 15:38 15:46 16:00 Pulse Rate 67 67 67 Respiratory 20 20 Rate Blood Pressure 159/104 159/104 151/100 O2 Sat by Pulse 99 100 100 Oximetry 05/08/21 05/08/21 05/08/21 16:16 16:30 16:46 Pulse Rate 66 67 65 Respiratory 20 20 20 Rate Blood Pressure 151/100 157/104 157/104 O2 Sat by Pulse 100 100 100 Oximetry 05/08/21 05/08/21 05/08/21 17:00 17:16 17:30 Pulse Rate 73 80 77 Respiratory 14 15 20 Rate Blood Pressure 154/103 154/103 180/117 O2 Sat by Pulse 99 99 98 Oximetry 05/08/21 05/08/21 05/08/21 17:46 18:00 18:16 Pulse Rate 70 76 72 Respiratory 19 20 20 Rate Blood Pressure 143/93 156/101 156/101 O2 Sat by Pulse 98 98 98 Oximetry 05/08/21 18:30 Pulse Rate 73 Respiratory 20 Rate Blood Pressure 144/95 O2 Sat by Pulse 97 Oximetry Constitutional: no acute distress, other (orally intuabted, sedated) Eyes: non-icteric ENT: oropharynx moist Neck: supple, no lymphadenopathy, no JVD Effort: normal Ascultation: Bilateral: clear, diminished breath sounds Cardiovascular: irregular rhythm, other (S1,S2) Gastrointestinal: normoactive bowel sounds, soft, non-tender, non-distended Extremities: no cyanosis, no edema, pulses normal Neurologic: unable to assess (sedated) Psychiatric: other CBC and BMP: 05/18/21 04:15 05/18/21 04:15 ABG, PT/INR, D-dimer: ABG ABG pH 7.401 pH Units (7.350-7.450) 05/08/21 03:25 ABG pCO2 39.6 mm Hg 05/08/21 03:25 ABG pO2 139.0 mm Hg (80.0-90.0) H 05/08/21 03:25 ABG O2 Saturation 98.7 % (95.0-99.0) 05/08/21 03:25 PT/INR, D-dimer PT 15.1 Sec. (12.2-14.9) H 05/04/21 07:25 INR 1.07 (0.87-1.13) 05/04/21 07:25 D-Dimer 579.49 ng/mlDDU (0-234) H 05/04/21 07:25 Abnormal lab findings: Abnormal Labs 05/04/21 05/04/21 05/04/21 07:25 07:25 07:25 WBC 12.9 H RBC 3.04 L Hgb 9.5 L Hct 28.4 L MCV RDW 15.4 H Lymph % (Auto) 11.4 L [place] % (Auto) 10.1 H Lymph # (Auto) [place] # (Auto) 1.3 H Seg Neutrophils % 78.0 H Seg Neutrophils # 10.0 H PT 15.1 H D-Dimer Heparin Anti-Xa Level ABG pH ABG pO2 ABG Base Excess ABG Hemoglobin Sodium 135 L Potassium Chloride Carbon Dioxide BUN 65 H Creatinine 3.4 H Glucose 118 H Total Bilirubin 1.50 H AST 519 H ALT 475 H Total Creatine Kinase Troponin T 1.300 H* Albumin Coronavirus (PCR) Hepatitis C Antibody 05/04/21 05/04/21 05/04/21 07:25 08:42 08:42 WBC RBC Hgb Hct MCV RDW Lymph % (Auto) [place] % (Auto) Lymph # (Auto) [place] # (Auto) Seg Neutrophils % Seg Neutrophils # PT D-Dimer 579.49 H Heparin Anti-Xa Level ABG pH ABG pO2 ABG Base Excess ABG Hemoglobin Sodium Potassium Chloride Carbon Dioxide BUN Creatinine Glucose Total Bilirubin AST ALT Total Creatine Kinase 406 H Troponin T 1.230 H* Albumin Coronavirus (PCR) Hepatitis C Antibody 05/04/21 05/04/21 05/04/21 10:13 13:34 18:14 WBC RBC Hgb 8.8 L Hct 26.6 L MCV RDW Lymph % (Auto) [place] % (Auto) Lymph # (Auto) [place] # (Auto) Seg Neutrophils % Seg Neutrophils # PT D-Dimer Heparin Anti-Xa Level < 0.10 L ABG pH ABG pO2 ABG Base Excess ABG Hemoglobin Sodium Potassium Chloride Carbon Dioxide BUN Creatinine Glucose Total Bilirubin AST ALT Total Creatine Kinase Troponin T 1.400 H* Albumin Coronavirus (PCR) Hepatitis C Antibody 05/05/21 05/05/21 05/05/21 03:40 03:40 03:40 WBC RBC Hgb Hct MCV RDW Lymph % (Auto) [place] % (Auto) Lymph # (Auto) [place] # (Auto) Seg Neutrophils % Seg Neutrophils # PT D-Dimer Heparin Anti-Xa Level 0.11 L ABG pH ABG pO2 ABG Base Excess ABG Hemoglobin Sodium Potassium 3.3 L Chloride Carbon Dioxide BUN 59 H Creatinine 2.6 H Glucose 139 H Total Bilirubin AST ALT Total Creatine Kinase Troponin T Albumin Coronavirus (PCR) Hepatitis C Antibody Reactive A 05/05/21 05/05/21 05/05/21 08:30 11:28 17:00 WBC RBC Hgb Hct MCV RDW Lymph % (Auto) [place] % (Auto) Lymph # (Auto) [place] # (Auto) Seg Neutrophils % Seg Neutrophils # PT D-Dimer Heparin Anti-Xa Level 0.10 L ABG pH 7.304 L ABG pO2 140.8 H ABG Base Excess -2.1 L ABG Hemoglobin 10.2 L Sodium Potassium Chloride Carbon Dioxide BUN Creatinine Glucose Total Bilirubin AST ALT Total Creatine Kinase Troponin T Albumin Coronavirus (PCR) Positive A Hepatitis C Antibody 05/05/21 05/06/21 05/06/21 19:51 03:47 06:15 WBC RBC Hgb 9.0 L Hct 27.8 L MCV RDW Lymph % (Auto) [place] % (Auto) Lymph # (Auto) [place] # (Auto) Seg Neutrophils % Seg Neutrophils # PT D-Dimer Heparin Anti-Xa Level 0.22 L ABG pH ABG pO2 143.5 H ABG Base Excess -2.4 L ABG Hemoglobin 6.9 L Sodium Potassium Chloride Carbon Dioxide BUN Creatinine Glucose Total Bilirubin AST ALT Total Creatine Kinase Troponin T Albumin Coronavirus (PCR) Hepatitis C Antibody 05/06/21 05/07/21 05/07/21 17:53 00:07 03:22 WBC RBC Hgb Hct MCV RDW Lymph % (Auto) [place] % (Auto) Lymph # (Auto) [place] # (Auto) Seg Neutrophils % Seg Neutrophils # PT D-Dimer Heparin Anti-Xa Level 0.10 L < 0.10 L ABG pH ABG pO2 ABG Base Excess ABG Hemoglobin Sodium Potassium Chloride 107.1 H Carbon Dioxide 20 L BUN 56 H Creatinine 2.9 H Glucose Total Bilirubin AST ALT Total Creatine Kinase Troponin T Albumin Coronavirus (PCR) Hepatitis C Antibody 05/07/21 05/07/21 05/07/21 03:45 07:44 16:28 WBC RBC Hgb Hct MCV RDW Lymph % (Auto) [place] % (Auto) Lymph # (Auto) [place] # (Auto) Seg Neutrophils % Seg Neutrophils # PT D-Dimer Heparin Anti-Xa Level < 0.10 L 0.10 L ABG pH ABG pO2 104.3 H ABG Base Excess -2.6 L ABG Hemoglobin 9.1 L Sodium Potassium Chloride Carbon Dioxide BUN Creatinine Glucose Total Bilirubin AST ALT Total Creatine Kinase Troponin T Albumin Coronavirus (PCR) Hepatitis C Antibody 05/07/21 05/08/21 05/08/21 22:41 03:25 04:34 WBC 12.4 H RBC 3.02 L Hgb 9.5 L Hct 29.2 L MCV 97 H RDW 16.7 H Lymph % (Auto) 8.1 L [place] % (Auto) 11.0 H Lymph # (Auto) 1.0 L [place] # (Auto) 1.4 H Seg Neutrophils % 80.1 H Seg Neutrophils # 9.9 H PT D-Dimer Heparin Anti-Xa Level < 0.10 L ABG pH ABG pO2 139.0 H ABG Base Excess ABG Hemoglobin 8.8 L Sodium Potassium Chloride Carbon Dioxide BUN Creatinine Glucose Total Bilirubin AST ALT Total Creatine Kinase Troponin T Albumin Coronavirus (PCR) Hepatitis C Antibody 05/08/21 07:30 WBC RBC Hgb Hct MCV RDW Lymph % (Auto) [place] % (Auto) Lymph # (Auto) [place] # (Auto) Seg Neutrophils % Seg Neutrophils # PT D-Dimer Heparin Anti-Xa Level ABG pH ABG pO2 ABG Base Excess ABG Hemoglobin Sodium Potassium Chloride 110.5 H Carbon Dioxide BUN 59 H Creatinine 2.8 H Glucose 103 H Total Bilirubin AST ALT 327 H Total Creatine Kinase Troponin T Albumin 3.1 L Coronavirus (PCR) Hepatitis C Antibody Chest x-ray: image reviewed Allied health notes reviewed: RT
[2021-05-08 22:00] LABS: Myeloperoxidase Antibody <1.0 AI (<1.0)
[2021-05-09] MEDS: fentaNYL DRIP Premix 2,000 MCG/100 ML BAG IV SCH ×3 (00:58→17:35)
[2021-05-09 01:04] LABS: Amorphous Crystals,Urine Few; Bacteria,Urine 1+ /HPF (Negative); Bilirubin,Urine NEG (Negative); Blood,Urine LG (Negative); Color,Urine Yellow (Yellow); Mucus,Urine FEW /HPF; Urobilinogen,Urine < 2.0 mg/dL (<2.0)
--- NOTE | 2021-05-09 04:12 | XRay Report ---
/Chest INDICATION: Follow-up FINDINGS: ET tube is satisfactory in position. Mild increased pulmonary vascularity. No pneumothorax. Abdomen 1 view INDICATION: NG tube placement FINDINGS: NG tube extends within the stomach tip in the distal stomach nonspecific bowel gas Signer Name: Master Cantu MD Signed: 05/09/2021 4:08 AM Workstation Name: [id number]
[2021-05-09 04:35] LABS: ABG Base Excess -1.1 mmol/L (-2.0-3.0); ABG HCO3 22.8 mmol/L (20.0-26.0); ABG Methemoglobin 0.6 % (0.0-1.5); ABG PCO2 34.5 mm Hg; ABG PH 7.438 pH Units (7.350-7.450); ABG PO2 161.6 mm Hg (80.0-90.0)
[2021-05-09 05:39] LABS: Hematocrit 26.5 % (35.5-45.6); Hemoglobin 8.7 gm/dl (11.8-15.2); Mean Corpuscular HGB Conc 33 % (32-34); Mean Corpuscular Volume 95 fl (84-94); Platelet Count 357 K/mm3 (140-440); Red Blood Count 2.79 M/mm3 (3.65-5.03); Red Cell Distribution Width 16.2 % (13.2-15.2)
[2021-05-09 05:53] LABS: Albumin 2.9 g/dL (3.9-5); Calcium 8.7 mg/dL (8.4-10.2)
[2021-05-09] MEDS: hydrALAZINE 25 MG TAB PO SCH ×3 (06:16→21:59)
--- NOTE | 2021-05-09 09:01 | Progress Note ---
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 UOP and lytes are stable. Creatinine stable today at 2.4 * Continue IVF as tolerated to maintain euvolemia, note non-oliguric urine output * Await pending serologies and urine lytes- ANCA negative * Renal ultrasound reviewed - will need follow up CT once stable * Continue antiHTN medications * Cardiology recommendations noted * Dose medications for renal function * Avoid potential nephrotoxins * Strict I/O Subjective Date of service: 05/09/21 Principal diagnosis: Hypertensive urgency, NSTEMI, YE Interval history: Patient remains intubated. Chart, vitals, labs reviewed. Objective - Exam Narrative Exam: Direct examination deferred in setting of COVID-19 pandemic. Primary team exam reviewed in detail - Vital Signs Vital signs: Vital Signs - 12hr 05/08/21 05/08/21 05/08/21 21:30 22:00 22:16 Pulse Rate 76 69 66 Respiratory 20 20 20 Rate Blood Pressure 183/122 153/101 153/101 O2 Sat by Pulse 100 99 100 Oximetry 05/08/21 05/08/21 05/08/21 22:30 22:46 23:00 Pulse Rate 67 65 67 Respiratory 20 20 20 Rate Blood Pressure 150/99 150/99 155/101 O2 Sat by Pulse 99 99 100 Oximetry 05/08/21 05/08/21 05/08/21 23:14 23:32 23:42 Pulse Rate 66 68 Respiratory 20 Rate Blood Pressure 155/101 155/100 O2 Sat by Pulse 99 100 100 Oximetry 05/09/21 05/09/21 05/09/21 00:00 00:30 01:00 Pulse Rate 85 71 67 Respiratory 17 20 20 Rate Blood Pressure 160/94 124/85 O2 Sat by Pulse 98 98 96 Oximetry 05/09/21 05/09/21 05/09/21 01:30 02:00 02:30 Pulse Rate 65 63 63 Respiratory 20 20 19 Rate Blood Pressure 124/85 132/89 132/89 O2 Sat by Pulse 99 98 100 Oximetry 0105/09/21 05/09/21 03:00 03:30 04:00 Pulse Rate 60 62 65 Respiratory 20 20 20 Rate Blood Pressure 130/88 130/88 143/97 O2 Sat by Pulse 100 100 100 Oximetry 05/09/21 05/09/21 05/09/21 04:30 05:00 05:30 Pulse Rate 61 61 62 Respiratory 20 20 20 Rate Blood Pressure 143/97 137/91 137/91 O2 Sat by Pulse 100 99 99 Oximetry 05/09/21 05/09/21 05/09/21 06:00 06:16 06:31 Pulse Rate 61 62 62 Respiratory 20 20 Rate Blood Pressure 131/83 131/83 137/91 O2 Sat by Pulse 98 100 Oximetry 05/09/21 05/09/21 05/09/21 07:00 07:31 07:32 Pulse Rate 64 66 74 Respiratory 20 20 Rate Blood Pressure 129/84 129/84 129/84 O2 Sat by Pulse 98 100 100 Oximetry 05/09/21 05/09/21 08:00 08:31 Pulse Rate 80 78 Respiratory 20 20 Rate Blood Pressure 147/91 147/91 O2 Sat by Pulse 96 98 Oximetry - Lab 05/09/21 04:20 05/09/21 04:20 Most recent lab results ABG pH 7.438 pH Units (7.350-7.450) 05/09/21 04:10 ABG pCO2 34.5 mm Hg 05/09/21 04:10 ABG pO2 161.6 mm Hg (80.0-90.0) H 05/09/21 04:10 ABG HCO3 22.8 mmol/L (20.0-26.0) 05/09/21 04:10 ABG O2 Saturation 99.0 % (95.0-99.0) 05/09/21 04:10 Calcium 8.7 mg/dL (8.4-10.2) 05/09/21 04:20 Magnesium 2.20 mg/dL (1.7-2.3) 05/04/21 08:42 Medications & Allergies - Medications Allergies/Adverse Reactions: Allergies No Known Allergies Allergy (Verified 05/08/21 07:47) Home Medications: Home Medications Medication Instructions Recorded Confirmed Last Taken Type Cefpodoxime Proxetil 200 mg PO Q12H #10 tablet 09/11/20 Unknown Rx Famotidine [Pepcid] 20 mg PO BID #30 tablet 04/13/21 Unknown Rx Losartan [Cozaar] 100 mg PO QDAY #60 tablet 04/13/21 Unknown Rx Metoprolol Xl [Metoprolol 25 mg PO QDAY #30 tablet 04/13/21 Unknown Rx SUCCINATE ER TAB] NIFEdipine XL [Procardia Xl] 60 mg PO Q12HR #60 tablet 04/13/21 Unknown Rx hydrALAZINE [Apresoline TAB] 50 mg PO Q8HR #180 tablet 04/13/21 Unknown Rx Active Medications: Generic Name Dose Route Start Last Admin Trade Name Freq PRN Reason Stop Dose Admin Acetaminophen 650 mg 05/04/21 12:34 05/07/21 20:52 Acetaminophen 325 Mg Tab PO 650 mg Q4H PRN Administration Pain MILD(1-3)/Fever >100.5/MARIA Acetaminophen 650 mg 05/07/21 16:00 05/07/21 15:54 Acetaminophen 650 Mg Rect Supp NM 650 mg Q4H PRN Administration Pain, Mild (1-3) Aspirin 81 mg 05/06/21 14:00 05/08/21 11:09 Aspirin 81 Mg Tab Chew PO 81 mg QDAY RISHI Administration Dexamethasone 8 mg 05/08/21 12:00 05/08/21 13:00 Dexamethasone 4 Mg/Ml Vial IV 05/17/21 10:01 8 mg Q24HR RISHI Administration Famotidine 10 mg 05/06/21 11:30 05/08/21 22:28 Famotidine 20 Mg/2 Ml Inj IV 10 mg BID RISHI Administration Fentanyl 50 mcg 05/05/21 15:21 Fentanyl 100 Mcg/2 Ml Inj IV Q10MIN PRN ANALGESIA Heparin Sodium (Porcine) 5,000 unit 05/06/21 22:00 05/08/21 22:28 Heparin 5,000 Unit/1 Ml Vial SUB-Q 5,000 unit Q12HR RISIH Administration Hydralazine HCl 50 mg 05/04/21 14:00 05/09/21 06:16 Hydralazine 25 Mg Tab PO 50 mg Q8HR RISHI Administration Hydralazine HCl 10 mg 05/07/21 16:16 05/07/21 20:26 Hydralazine 20 Mg/1 Ml Inj IV 10 mg Q2H PRN Administration Blood Pressure Hydrophilic Ointment 1 applic 05/05/21 15:21 Lip Therapy Vaseline TP Q2HR PRN Dry Lips Fentanyl Citrate 2,000 mcg in 100 mls @ 4.082 mls/hr 05/05/21 16:00 05/09/21 08:54 Fentanyl Drip Premix IV 3 mcg/kg/hr TITR RISHI 12.247 mls/hr Administration Protocol 1 MCG/KG/HR Propofol 1,000 mg in 100 mls @ 2.449 mls/hr 05/05/21 16:00 05/09/21 06:16 Diprivan 10 Mg/Ml IV 20 mcg/kg/min TITR RISHI 9.798 mls/hr Administration Protocol 5 MCG/KG/MIN Sodium Chloride 1,000 mls @ 75 mls/hr 05/07/21 14:00 05/08/21 14:31 Nacl 0.45% 1000 Ml IV 75 mls/hr DIRECT RISHI Administration Lorazepam 0.5 mg 05/04/21 15:46 05/04/21 21:51 Lorazepam 2 Mg/Ml Vial IV 0.5 mg Q4H PRN Administration Anxiety Metoprolol Tartrate 50 mg 05/06/21 14:00 05/08/21 22:19 Metoprolol Tartrate 50 Mg Tab PO Not Given BID RISHI Multi-Ingred Cream/Lotion/Oil/Oint 1 applic 05/05/21 15:21 Mineral Oil/Petrolatum, White Ophth Oint 3.5 Gm OU Q4HR PRN Dry Eye(s) Ondansetron HCl 4 mg 05/04/21 12:34 05/04/21 21:51 Ondansetron 4 Mg/2 Ml Inj IV 4 mg Q8H PRN Administration Nausea And Vomiting Quetiapine Fumarate 50 mg 05/09/21 10:00 Quetiapine 25 Mg Tab PO BID RISHI Senna/Docusate Sodium 1 tab 05/05/21 22:00 05/08/21 22:19 Sennosides/Docusate Sodium 8.6/50 Mg Tab FEEDTUBE Not Given BID RISHI Sodium Chloride 10 ml 05/04/21 22:00 05/08/21 22:29 Sodium Chloride 0.9% 10 Ml Flush Syringe IV 10 ml BID RISHI Administration Sodium Chloride 10 ml 05/04/21 12:34 05/06/21 13:59 Sodium Chloride 0.9% 10 Ml Flush Syringe IV 10 ml PRN PRN Administration LINE FLUSH
[2021-05-09] MEDS ORDERED: SODIUM CHLORIDE 0.9% 50 ML IVPB IV PRN (09:46)
[2021-05-09] MEDS ORDERED: QUEtiapine 25 MG TAB PO SCH ×2 (10:00→16:05)
[2021-05-09 10:16] LABS: Basophils # (Auto) 0.1 K/mm3 (0.0-0.1); Basophils % (Auto) 0.5 % (0.0-1.8); Eosinophils % (Auto) 0.4 % (0.0-4.3); Hematocrit 28.4 % (35.5-45.6); Lymphocytes # (Auto) 0.7 K/mm3 (1.2-5.4); Lymphocytes % (Auto) 5.9 % (13.4-35.0); Mean Corpuscular HGB Conc 32 % (32-34); Mean Corpuscular Volume 94 fl (84-94); Monocytes % (Auto) 8.9 % (0.0-7.3); Platelet Count 353 K/mm3 (140-440); Red Cell Distribution Width 15.9 % (13.2-15.2)
[2021-05-09] MEDS: dexAMETHasone 4 MG/ML VIAL IV SCH (10:34)
[2021-05-09] MEDS: SENNOSIDES/DOCUSATE SODIUM 8.6/50 MG TAB FEEDTUBE SCH ×2 (10:35→21:56)
[2021-05-09] MEDS: ASPIRIN 81 MG TAB CHEW PO SCH (10:35)
[2021-05-09] MEDS: FAMOTIDINE 20 MG/2 ML INJ IV SCH ×2 (10:35→21:58)
[2021-05-09] MEDS: HEPARIN 5,000 UNIT/1 ML VIAL SUB-Q SCH ×2 (10:35→21:57)
[2021-05-09] MEDS: METOPROLOL TARTRATE 50 MG TAB PO SCH ×2 (10:36→21:55)
[2021-05-09 12:01] LABS: ANA Screen, IFA Negative (Negative)
[2021-05-09] MEDS: ACETAMINOPHEN 325 MG TAB PO PRN (12:32)
--- NOTE | 2021-05-09 12:44 | Progress Note ---
Assessment and Plan Acute hypoxic resp failure on MVS COVID positive NSTEMI Acute kidney injury Cardiomyopathy EF 35-40% History of hepatitis C Elevated D-dimer. Low probability for PE seen on VQ scan Tobacco abuse Polysubstance abusepatient with positive methamphetamines and has a history of cocaine use Anemia - send urethral GC swab - send UA with C&S - get Procalcitonin level - reduced set rate to 12/min - RT to place on SBT - ABG after 2 hours - tentative trial od extubation - sargent catheter re: YE / critical illness - continue care as below otherwise; - Daily SAT and SBT assessment as tolerated - continue to wean supplemental oxygen for target O2 sat's > 90% acutely - VAP bundle addressed - continue lung protective strategies - continue bronchodilators with pulmonary hygiene per RT - wean per pulmonary driven protocols otherwise - avoid nephrotoxins, renally dose all medications - continue accuchecks with glycemic control per SSI (While critically ill target blood glucose of 140-180 mg/dL; avoid hypoglycemia) - sedation prn for target RASS 0 to -1 - continue to avoid benzodiazepine's, reduce the possibility of delirium - prn analgesia per CPOT score - Maintenance of sleep-wake cycle, avoid delirium - continue enteral nutritional support at goal rate as tolerated - G.I. & VTE prophylaxis - PT/OT/ROM exercises - continue mobility protocols for pressure ulcer prophylaxis - Monitor hemodynamics closely - continue other care per attending / other consultants - discharge planning ongoing concurrently COVID SPECIFIC INTERVENTIONS - Appears to have incidental COVID infection- Remdesivir not administered secondary to renal failure - continue systemic steroids for severe COVID-19 infection empirically (Dexamethasone) - follow repeat COVID tests results - zinc and vitamin C supplementation - Monitor inflammatory markers per facility protocol - ferritin, Ddimer, CRP - therapeutic anticoagulation per system Protocol based on d-dimer and clinical considerations (on therapeutic heparin for NSTEMI) - Continue contact and airborne isolation .... Re-evaluate in am & prn CONDITION: CRITICAL PROGNOSIS: GUARDED CODE STATUS: FULL CODE The high probability of a clinically significant, sudden or life-threatening d eterioration of the [respiratory, cardiovascular & neurologic] system(s) required my full and direct attention, intervention and personal management. The aggregate critical care time was [34] minutes without overlap. Time includes spent on; [x] Data Review and interpretation [x] Patient assessment and monitoring of vital signs [x] Documentation [x] Medication orders and management Subjective Date of service: 05/09/21 Principal diagnosis: AHRF; COVID-19 infection; NSTEMI; YE; HFrEF (35-40%); Polysubstance abuse Interval history: Patient is seen today for: Acute hypoxemic Resp failure; COVID-19 infection; NSTEMI; YE; HFrEF (35-40%); Polysubstance abuse; Anemia Seen and examined at bedside; 24hour events reviewed; nursing and respiratory care staff consulted; no adverse overnight events reported to me; resting in bed; remains on MVS; sedated but appropriate during SAT earlier; no emesis or overt aspiration; RN reports urethral discharge Objective Vital Signs - 12hr 05/09/21 05/09/21 05/09/21 01:00 01:30 02:00 Temperature Pulse Rate 67 65 63 Pulse Rate [ From Monitor] Pulse Rate [ Left Radial] Pulse Rate [ Right Radial] Respiratory 20 20 20 Rate Blood Pressure 124/85 124/85 132/89 O2 Sat by Pulse 96 99 98 Oximetry 05/09/21 05/09/21 05/09/21 02:30 03:00 03:30 Temperature Pulse Rate 63 60 62 Pulse Rate [ From Monitor] Pulse Rate [ Left Radial] Pulse Rate [ Right Radial] Respiratory 19 20 20 Rate Blood Pressure 132/89 130/88 130/88 O2 Sat by Pulse 100 100 100 Oximetry 05/09/21 05/09/21 05/09/21 04:00 04:30 05:00 Temperature Pulse Rate 65 61 61 Pulse Rate [ From Monitor] Pulse Rate [ Left Radial] Pulse Rate [ Right Radial] Respiratory 20 20 20 Rate Blood Pressure 143/97 143/97 137/91 O2 Sat by Pulse 100 100 99 Oximetry 05/09/21 05/09/21 05/09/21 05:30 06:00 06:16 Temperature Pulse Rate 62 61 62 Pulse Rate [ From Monitor] Pulse Rate [ Left Radial] Pulse Rate [ Right Radial] Respiratory 20 20 Rate Blood Pressure 137/91 131/83 131/83 O2 Sat by Pulse 99 98 Oximetry 05/09/21 05/09/21 05/09/21 06:31 07:00 07:31 Temperature Pulse Rate 62 64 66 Pulse Rate [ From Monitor] Pulse Rate [ Left Radial] Pulse Rate [ Right Radial] Respiratory 20 20 20 Rate Blood Pressure 137/91 129/84 129/84 O2 Sat by Pulse 100 98 100 Oximetry 05/09/21 05/09/21 05/09/21 07:32 08:00 08:31 Temperature Pulse Rate 74 80 78 Pulse Rate [ From Monitor] Pulse Rate [ Left Radial] Pulse Rate [ Right Radial] Respiratory 20 20 Rate Blood Pressure 129/84 147/91 147/91 O2 Sat by Pulse 100 96 98 Oximetry 05/09/21 05/09/21 05/09/21 09:00 09:02 09:31 Temperature 99.9 F H Pulse Rate 79 74 Pulse Rate [ 73 From Monitor] Pulse Rate [ 73 Left Radial] Pulse Rate [ 73 Right Radial] Respiratory 17 24 20 Rate Blood Pressure 147/91 147/91 O2 Sat by Pulse 98 99 99 Oximetry 05/09/21 05/09/21 05/09/21 10:00 10:31 10:36 Temperature Pulse Rate 72 71 74 Pulse Rate [ From Monitor] Pulse Rate [ Left Radial] Pulse Rate [ Right Radial] Respiratory 20 12 Rate Blood Pressure 132/84 132/84 132/84 O2 Sat by Pulse 98 99 Oximetry 05/09/21 05/09/21 05/09/21 11:00 11:27 11:31 Temperature Pulse Rate 71 71 Pulse Rate [ From Monitor] Pulse Rate [ Left Radial] Pulse Rate [ Right Radial] Respiratory 11 L Rate Blood Pressure 142/88 142/88 142/88 O2 Sat by Pulse 97 98 99 Oximetry 05/09/21 12:00 Temperature Pulse Rate 72 Pulse Rate [ From Monitor] Pulse Rate [ Left Radial] Pulse Rate [ Right Radial] Respiratory 10 L Rate Blood Pressure 141/89 O2 Sat by Pulse 98 Oximetry Constitutional: no acute distress, other (orally intuabted, sedated; normal respiratory effort at rest) Eyes: non-icteric ENT: oropharynx moist Neck: supple, no lymphadenopathy, no JVD Effort: normal Ascultation: Bilateral: clear, diminished breath sounds Percussion: Bilateral: not dull Cardiovascular: irregular rhythm, other (S1,S2) Gastrointestinal: normoactive bowel sounds, soft, non-tender, non-distended Extremities: no cyanosis, no edema, pulses normal Neurologic: non-focal exam, pupils equal and round, CN II-XII normal, motor strength normal and Psychiatric: other (sedated) CBC and BMP: 05/09/21 09:48 05/09/21 04:20 ABG, PT/INR, D-dimer: ABG ABG pH 7.438 pH Units (7.350-7.450) 05/09/21 04:10 ABG pCO2 34.5 mm Hg 05/09/21 04:10 ABG pO2 161.6 mm Hg (80.0-90.0) H 05/09/21 04:10 ABG O2 Saturation 99.0 % (95.0-99.0) 05/09/21 04:10 PT/INR, D-dimer PT 15.1 Sec. (12.2-14.9) H 05/04/21 07:25 INR 1.07 (0.87-1.13) 05/04/21 07:25 D-Dimer 579.49 ng/mlDDU (0-234) H 05/04/21 07:25 Abnormal lab findings: Abnormal Labs 05/04/21 05/04/21 05/04/21 07:25 07:25 07:25 WBC 12.9 H RBC 3.04 L Hgb 9.5 L Hct 28.4 L MCV RDW 15.4 H Lymph % (Auto) 11.4 L [place] % (Auto) 10.1 H Lymph # (Auto) [place] # (Auto) 1.3 H Seg Neutrophils % 78.0 H Seg Neutrophils # 10.0 H PT 15.1 H D-Dimer Heparin Anti-Xa Level ABG pH ABG pO2 ABG Base Excess ABG Hemoglobin Sodium 135 L Potassium Chloride Carbon Dioxide BUN 65 H Creatinine 3.4 H Glucose 118 H Total Bilirubin 1.50 H AST 519 H ALT 475 H Total Creatine Kinase Troponin T 1.300 H* C-Reactive Protein Albumin Coronavirus (PCR) Hepatitis C Antibody 05/04/21 05/04/21 05/04/21 07:25 08:42 08:42 WBC RBC Hgb Hct MCV RDW Lymph % (Auto) [place] % (Auto) Lymph # (Auto) [place] # (Auto) Seg Neutrophils % Seg Neutrophils # PT D-Dimer 579.49 H Heparin Anti-Xa Level ABG pH ABG pO2 ABG Base Excess ABG Hemoglobin Sodium Potassium Chloride Carbon Dioxide BUN Creatinine Glucose Total Bilirubin AST ALT Total Creatine Kinase 406 H Troponin T 1.230 H* C-Reactive Protein Albumin Coronavirus (PCR) Hepatitis C Antibody 05/04/21 05/04/21 05/04/21 10:13 13:34 18:14 WBC RBC Hgb 8.8 L Hct 26.6 L MCV RDW Lymph % (Auto) [place] % (Auto) Lymph # (Auto) [place] # (Auto) Seg Neutrophils % Seg Neutrophils # PT D-Dimer Heparin Anti-Xa Level < 0.10 L ABG pH ABG pO2 ABG Base Excess ABG Hemoglobin Sodium Potassium Chloride Carbon Dioxide BUN Creatinine Glucose Total Bilirubin AST ALT Total Creatine Kinase Troponin T 1.400 H* C-Reactive Protein Albumin Coronavirus (PCR) Hepatitis C Antibody 05/05/21 05/05/21 05/05/21 03:40 03:40 03:40 WBC RBC Hgb Hct MCV RDW Lymph % (Auto) [place] % (Auto) Lymph # (Auto) [place] # (Auto) Seg Neutrophils % Seg Neutrophils # PT D-Dimer Heparin Anti-Xa Level 0.11 L ABG pH ABG pO2 ABG Base Excess ABG Hemoglobin Sodium Potassium 3.3 L Chloride Carbon Dioxide BUN 59 H Creatinine 2.6 H Glucose 139 H Total Bilirubin AST ALT Total Creatine Kinase Troponin T C-Reactive Protein Albumin Coronavirus (PCR) Hepatitis C Antibody Reactive A 05/05/21 05/05/21 05/05/21 08:30 11:28 17:00 WBC RBC Hgb Hct MCV RDW Lymph % (Auto) [place] % (Auto) Lymph # (Auto) [place] # (Auto) Seg Neutrophils % Seg Neutrophils # PT D-Dimer Heparin Anti-Xa Level 0.10 L ABG pH 7.304 L ABG pO2 140.8 H ABG Base Excess -2.1 L ABG Hemoglobin 10.2 L Sodium Potassium Chloride Carbon Dioxide BUN Creatinine Glucose Total Bilirubin AST ALT Total Creatine Kinase Troponin T C-Reactive Protein Albumin Coronavirus (PCR) Positive A Hepatitis C Antibody 05/05/21 05/06/21 05/06/21 19:51 03:47 06:15 WBC RBC Hgb 9.0 L Hct 27.8 L MCV RDW Lymph % (Auto) [place] % (Auto) Lymph # (Auto) [place] # (Auto) Seg Neutrophils % Seg Neutrophils # PT D-Dimer Heparin Anti-Xa Level 0.22 L ABG pH ABG pO2 143.5 H ABG Base Excess -2.4 L ABG Hemoglobin 6.9 L Sodium Potassium Chloride Carbon Dioxide BUN Creatinine Glucose Total Bilirubin AST ALT Total Creatine Kinase Troponin T C-Reactive Protein Albumin Coronavirus (PCR) Hepatitis C Antibody 05/06/21 05/07/21 05/07/21 17:53 00:07 03:22 WBC RBC Hgb Hct MCV RDW Lymph % (Auto) [place] % (Auto) Lymph # (Auto) [place] # (Auto) Seg Neutrophils % Seg Neutrophils # PT D-Dimer Heparin Anti-Xa Level 0.10 L < 0.10 L ABG pH ABG pO2 ABG Base Excess ABG Hemoglobin Sodium Potassium Chloride 107.1 H Carbon Dioxide 20 L BUN 56 H Creatinine 2.9 H Glucose Total Bilirubin AST ALT Total Creatine Kinase Troponin T C-Reactive Protein Albumin Coronavirus (PCR) Hepatitis C Antibody 05/07/21 05/07/21 05/07/21 03:45 07:44 16:28 WBC RBC Hgb Hct MCV RDW Lymph % (Auto) [place] % (Auto) Lymph # (Auto) [place] # (Auto) Seg Neutrophils % Seg Neutrophils # PT D-Dimer Heparin Anti-Xa Level < 0.10 L 0.10 L ABG pH ABG pO2 104.3 H ABG Base Excess -2.6 L ABG Hemoglobin 9.1 L Sodium Potassium Chloride Carbon Dioxide BUN Creatinine Glucose Total Bilirubin AST ALT Total Creatine Kinase Troponin T C-Reactive Protein Albumin Coronavirus (PCR) Hepatitis C Antibody 05/07/21 05/08/21 05/08/21 22:41 03:25 04:34 WBC 12.4 H RBC 3.02 L Hgb 9.5 L Hct 29.2 L MCV 97 H RDW 16.7 H Lymph % (Auto) 8.1 L [place] % (Auto) 11.0 H Lymph # (Auto) 1.0 L [place] # (Auto) 1.4 H Seg Neutrophils % 80.1 H Seg Neutrophils # 9.9 H PT D-Dimer Heparin Anti-Xa Level < 0.10 L ABG pH ABG pO2 139.0 H ABG Base Excess ABG Hemoglobin 8.8 L Sodium Potassium Chloride Carbon Dioxide BUN Creatinine Glucose Total Bilirubin AST ALT Total Creatine Kinase Troponin T C-Reactive Protein Albumin Coronavirus (PCR) Hepatitis C Antibody 05/08/21 05/09/21 05/09/21 07:30 04:10 04:20 WBC RBC Hgb Hct MCV RDW Lymph % (Auto) [place] % (Auto) Lymph # (Auto) [place] # (Auto) Seg Neutrophils % Seg Neutrophils # PT D-Dimer Heparin Anti-Xa Level ABG pH ABG pO2 161.6 H ABG Base Excess ABG Hemoglobin 8.3 L Sodium 151 H Potassium Chloride 110.5 H 114.5 H Carbon Dioxide 21 L BUN 59 H 57 H Creatinine 2.8 H 2.4 H Glucose 103 H Total Bilirubin AST ALT 327 H 210 H Total Creatine Kinase Troponin T C-Reactive Protein Albumin 3.1 L 2.9 L Coronavirus (PCR) Hepatitis C Antibody 05/09/21 05/09/21 05/09/21 04:20 09:48 09:48 WBC 11.7 H 11.6 H RBC 2.79 L 3.00 L Hgb 8.7 L 9.0 L Hct 26.5 L 28.4 L MCV 95 H RDW 16.2 H 15.9 H Lymph % (Auto) 5.9 L [place] % (Auto) 8.9 H Lymph # (Auto) 0.7 L [place] # (Auto) 1.0 H Seg Neutrophils % 84.3 H Seg Neutrophils # 9.8 H PT D-Dimer Heparin Anti-Xa Level ABG pH ABG pO2 ABG Base Excess ABG Hemoglobin Sodium Potassium Chloride Carbon Dioxide BUN Creatinine Glucose Total Bilirubin AST ALT Total Creatine Kinase Troponin T C-Reactive Protein 8.70 H Albumin Coronavirus (PCR) Hepatitis C Antibody Chest x-ray: image reviewed (ETT in good position; no new infiltrate) Allied health notes reviewed: nursing
[2021-05-09] MEDS: SODIUM CHLORIDE 0.45% 1000 ML 1,000 ML IV SCH (12:49)
--- NOTE | 2021-05-09 13:24 | Progress Note ---
Assessment and Plan Patient is a 56-year-old male with a past medical history of hypertension, paroxysmal SVT, medical noncompliance, smoking, substance abuse who presented to the ED with a complaint of shortness of breath and dyspnea on exertion x1 month however with significantly worsening symptoms since yesterday. NSTEMI Hypertensive Emergency COVID-19 YE Hepatitis C SOB Medical noncompliance Polysubstance abuse-patient tested positive for methamphetamines Echo 05/04/2021-EF 35 to 40%. Moderate concentric LVH. Moderate global hypokinesis of left ventricle. Mild mitral regurgitation. Mild pulmonary hypertension. Echocardiogram reviewed (08/27/2020): LVEF is 50 to 55%. Mild to moderate concentric LVF. Severe diastolic dysfunction is present (restrictive filling). Right ventricle is mildly hypokinetic. RVSP is 48 mmHg. No valvular abnormalities. Plan: Agree with resuming statin therapy Patient completed heparin drip for 48 hours. Cotinue medical management. Heparin subcu for DVT prophylaxis Continue metoprolol tartrate to 50 mg p.o. twice daily Patient seen in conjunction with Dr. Rizvi who agrees with this plan of care - Patient Problems (1) ARF (acute renal failure) Current Visit: Yes Status: Acute (2) Elevated d-dimer Current Visit: Yes Status: Acute (3) LFT elevation Current Visit: Yes Status: Acute (4) NSTEMI (non-ST elevated myocardial infarction) Current Visit: Yes Status: Acute (5) Polysubstance abuse Current Visit: Yes Status: Acute (6) SOB (shortness of breath) Current Visit: Yes Status: Acute (7) Hypertension Current Visit: Yes Status: Chronic (8) Noncompliance with medication regimen Current Visit: Yes Status: Chronic Subjective Date of service: 05/09/21 Principal diagnosis: AHRF; COVID-19 infection; NSTEMI; YE; HFrEF (35-40%); Polysubstance abuse Interval history: Patient remained intubated and sedated Sinus 70s-80s with PVCs Objective Vital Signs Temp Pulse Pulse Pulse Pulse Resp BP 05/09/21 12:00 72 10 L 141/89 05/09/21 11:31 71 11 L 142/88 05/09/21 11:27 71 142/88 05/09/21 11:00 142/88 05/09/21 10:36 74 132/84 05/09/21 10:31 71 12 132/84 05/09/21 10:00 72 20 132/84 05/09/21 09:31 74 20 147/91 05/09/21 09:02 73 73 73 24 05/09/21 09:00 99.9 F H 79 17 147/91 05/09/21 08:31 78 20 147/91 05/09/21 08:00 80 20 147/91 05/09/21 07:32 74 129/84 05/09/21 07:31 66 20 129/84 05/09/21 07:00 64 20 129/84 05/09/21 06:31 62 20 137/91 05/09/21 06:16 62 131/83 05/09/21 06:00 61 20 131/83 05/09/21 05:30 62 20 137/91 05/09/21 05:00 61 20 137/91 05/09/21 04:30 61 20 143/97 05/09/21 04:00 65 20 143/97 05/09/21 03:30 62 20 130/88 05/09/21 03:00 60 20 130/88 05/09/21 02:30 63 19 132/89 05/09/21 02:00 63 20 132/89 05/09/21 01:30 65 20 124/85 05/09/21 01:00 67 20 124/85 05/09/21 00:30 71 20 05/09/21 00:00 85 17 160/94 05/08/21 23:42 68 155/100 05/08/21 23:32 05/08/21 23:14 66 20 155/101 05/08/21 23:00 67 20 155/101 05/08/21 22:46 65 20 150/99 05/08/21 22:30 67 20 150/99 05/08/21 22:16 66 20 153/101 05/08/21 22:00 69 20 153/101 05/08/21 21:30 76 20 183/122 05/08/21 21:00 74 20 131/104 05/08/21 20:30 68 20 158/104 05/08/21 20:00 69 20 150/98 05/08/21 19:30 67 20 144/95 05/08/21 19:00 71 20 144/94 05/08/21 18:46 72 20 144/95 05/08/21 18:30 73 20 144/95 05/08/21 18:16 72 20 156/101 05/08/21 18:00 76 20 156/101 05/08/21 17:46 70 19 143/93 05/08/21 17:30 77 20 180/117 05/08/21 17:16 80 15 154/103 05/08/21 17:00 73 14 154/103 05/08/21 16:46 65 20 157/104 05/08/21 16:30 67 20 157/104 05/08/21 16:16 66 20 151/100 05/08/21 16:00 67 20 151/100 05/08/21 15:46 67 20 159/104 05/08/21 15:38 67 159/104 05/08/21 15:30 17 159/104 05/08/21 15:16 74 20 153/99 05/08/21 15:00 68 20 153/99 05/08/21 14:46 68 20 151/95 05/08/21 14:30 67 20 151/95 05/08/21 14:16 69 21 148/95 05/08/21 14:00 65 20 148/95 05/08/21 13:46 66 20 148/94 05/08/21 13:30 64 20 148/94 Pulse Ox 05/09/21 12:00 98 05/09/21 11:31 99 05/09/21 11:27 98 05/09/21 11:00 97 05/09/21 10:36 05/09/21 10:31 99 05/09/21 10:00 98 05/09/21 09:31 99 05/09/21 09:02 99 05/09/21 09:00 98 05/09/21 08:31 98 05/09/21 08:00 96 05/09/21 07:32 100 05/09/21 07:31 100 05/09/21 07:00 98 05/09/21 06:31 100 05/09/21 06:16 05/09/21 06:00 98 05/09/21 05:30 99 05/09/21 05:00 99 05/09/21 04:30 100 05/09/21 04:00 100 05/09/21 03:30 100 05/09/21 03:00 100 05/09/21 02:30 100 05/09/21 02:00 98 05/09/21 01:30 99 05/09/21 01:00 96 05/09/21 00:30 98 05/09/21 00:00 98 05/08/21 23:42 100 05/08/21 23:32 100 05/08/21 23:14 99 05/08/21 23:00 100 05/08/21 22:46 99 05/08/21 22:30 99 05/08/21 22:16 100 05/08/21 22:00 99 05/08/21 21:30 100 05/08/21 21:00 99 05/08/21 20:30 100 05/08/21 20:00 99 05/08/21 19:30 99 05/08/21 19:00 98 05/08/21 18:46 99 05/08/21 18:30 97 05/08/21 18:16 98 05/08/21 18:00 98 05/08/21 17:46 98 05/08/21 17:30 98 05/08/21 17:16 99 05/08/21 17:00 99 05/08/21 16:46 100 05/08/21 16:30 100 05/08/21 16:16 100 05/08/21 16:00 100 05/08/21 15:46 100 05/08/21 15:38 99 05/08/21 15:30 100 05/08/21 15:16 94 05/08/21 15:00 99 05/08/21 14:46 99 05/08/21 14:30 99 05/08/21 14:16 98 05/08/21 14:00 99 05/08/21 13:46 99 05/08/21 13:30 99 - Physical Examination General: Other (intubated and sedated) HEENT: Positive: PERRL Neck: Positive: trachea midline Cardiac: Positive: Reg Rate and Rhythm Lungs: Positive: Ventilated Respirations Neuro: Positive: Other (sedated) Abdomen: Positive: Soft Skin: Negative: Rash, Suspicious Lesions, Ulceration Extremities: Absent: edema - Labs and Meds Cardiac Enzymes 05/09/21 Range/Units 04:20 AST 20 (5-40) units/L CBC 05/09/21 05/09/21 Range/Units 04:20 09:48 WBC 11.7 H 11.6 H (4.5-11.0) K/mm3 RBC 2.79 L 3.00 L (3.65-5.03) M/mm3 Hgb 8.7 L 9.0 L (11.8-15.2) gm/dl Hct 26.5 L 28.4 L (35.5-45.6) % Plt Count 357 353 (140-440) K/mm3 Lymph # (Auto) 0.7 L (1.2-5.4) K/mm3 [place] # (Auto) 1.0 H (0.0-0.8) K/mm3 Eos # (Auto) 0.0 (0.0-0.4) K/mm3 Baso # (Auto) 0.1 (0.0-0.1) K/mm3 Comprehensive Metabolic Panel 05/09/21 Range/Units 04:20 Sodium 151 H (137-145) mmol/L Potassium 3.9 (3.6-5.0) mmol/L Chloride 114.5 H (98-107) mmol/L Carbon Dioxide 21 L (22-30) mmol/L BUN 57 H (9-20) mg/dL Creatinine 2.4 H (0.8-1.3) mg/dL Glucose 95 (75-100) mg/dL Calcium 8.7 (8.4-10.2) mg/dL AST 20 (5-40) units/L ALT 210 H (7-56) units/L Alkaline Phosphatase 58 (35-129) units/L Total Protein 6.3 (6.3-8.2) g/dL Albumin 2.9 L (3.9-5) g/dL - Imaging and Cardiology EKG: report reviewed, image reviewed Echo: report reviewed - Telemetry EKG Rhythm: Sinus Rhythm - EKG Sinus rhythms and dysrhythmias: sinus rhythm Ventricular dysrhythmias: ventricular premature com Chamber hypertrophy or enlargement: left ventricular hypertro - Allied health notes Allied health notes reviewed: RT
--- NOTE | 2021-05-09 14:16 | Consultation ---
History of Present Illness - Reason for Consult Consult date: 05/09/21 - History of Present Illness 56 yo M PMHx smoking, a fin, HTN, medication non-compliance presented to the hospital complaining of a chronic SBa dn cough which has acutely worsened over the past 3 days. He also complained of associated left sided chest tighness. He remains unvaccinated against COVID. He was seen here in August of last year for bilateral pneumonia and was COVID negative at that time. He is unable to afford his medications, as such he does not take them. Febrile to 102.9 with a white count of 11.6. Covid positive. Decreased renal function, EGFR 28. No procalcitonin. Currently on dexamethasone. Currently on the vent. Imaging personally reviewed: Chest x-ray: Increased pulmonary vascularity Past History Past Medical History: hypertension Past Surgical History: No surgical history Social history: smoking, other (cocaine) Family history: CAD Medications and Allergies Allergies Allergy/AdvReac Type Severity Reaction Status Date / Time No Known Allergies Allergy Verified 05/08/21 07:47 Home Medications Medication Instructions Recorded Confirmed Last Taken Type Cefpodoxime Proxetil 200 mg PO Q12H #10 tablet 09/11/20 Unknown Rx Famotidine [Pepcid] 20 mg PO BID #30 tablet 04/13/21 Unknown Rx Losartan [Cozaar] 100 mg PO QDAY #60 tablet 04/13/21 Unknown Rx Metoprolol Xl [Metoprolol 25 mg PO QDAY #30 tablet 04/13/21 Unknown Rx SUCCINATE ER TAB] NIFEdipine XL [Procardia Xl] 60 mg PO Q12HR #60 tablet 04/13/21 Unknown Rx hydrALAZINE [Apresoline TAB] 50 mg PO Q8HR #180 tablet 04/13/21 Unknown Rx Active Meds: Active Medications Acetaminophen (Acetaminophen 325 Mg Tab) 650 mg PO Q4H PRN PRN Reason: Pain MILD(1-3)/Fever >100.5/MARIA Last Admin: 05/09/21 12:32 Dose: 650 mg Acetaminophen (Acetaminophen 650 Mg Rect Supp) 650 mg ID Q4H PRN PRN Reason: Pain, Mild (1-3) Last Admin: 05/07/21 15:54 Dose: 650 mg Aspirin (Aspirin 81 Mg Tab Chew) 81 mg PO QDAY RISHI Last Admin: 05/09/21 10:35 Dose: 81 mg Atorvastatin Calcium (Atorvastatin 40 Mg Tab) 40 mg FEEDTUBE QHS [facility] Dexamethasone (Dexamethasone 4 Mg/Ml Vial) 8 mg IV Q24HR [facility] Stop: 05/17/21 10:01 Last Admin: 05/09/21 10:34 Dose: 8 mg Dextrose (Dextrose 10% *Hypoglycemia) 0 ml IV PRN PRN PRN Reason: Hypoglycemia Famotidine (Famotidine 20 Mg/2 Ml Inj) 10 mg IV BID [facility] Last Admin: 05/09/21 10:35 Dose: 10 mg Fentanyl (Fentanyl 100 Mcg/2 Ml Inj) 50 mcg IV Q10MIN PRN PRN Reason: ANALGESIA Heparin Sodium (Porcine) (Heparin 5,000 Unit/1 Ml Vial) 5,000 unit SUB-Q Q12HR [facility] Last Admin: 05/09/21 10:35 Dose: 5,000 unit Hydralazine HCl (Hydralazine 25 Mg Tab) 50 mg PO Q8HR [facility] Last Admin: 05/09/21 06:16 Dose: 50 mg Hydralazine HCl (Hydralazine 20 Mg/1 Ml Inj) 10 mg IV Q2H PRN PRN Reason: Blood Pressure Last Admin: 05/07/21 20:26 Dose: 10 mg Hydrophilic Ointment (Lip Therapy Vaseline) 1 applic TP Q2HR PRN PRN Reason: Dry Lips Fentanyl Citrate (Fentanyl Drip Premix) 2,000 mcg in 100 mls @ 4.082 mls/hr IV TITR [facility]; Protocol Last Admin: 05/09/21 08:54 Dose: 3 mcg/kg/hr, 12.247 mls/hr Propofol (Diprivan 10 Mg/Ml) 1,000 mg in 100 mls @ 2.449 mls/hr IV TITR [facility]; Protocol Last Admin: 05/09/21 06:16 Dose: 20 mcg/kg/min, 9.798 mls/hr Sodium Chloride (Nacl 0.45% 1000 Ml) 1,000 mls @ 75 mls/hr IV DIRECT RISHI Last Admin: 05/09/21 12:49 Dose: 75 mls/hr Lorazepam (Lorazepam 2 Mg/Ml Vial) 0.5 mg IV Q4H PRN PRN Reason: Anxiety Last Admin: 05/04/21 21:51 Dose: 0.5 mg Metoprolol Tartrate (Metoprolol Tartrate 50 Mg Tab) 50 mg PO BID [facility] Last Admin: 05/09/21 10:36 Dose: 50 mg Multi-Ingred Cream/Lotion/Oil/Oint (Mineral Oil/Petrolatum, White Ophth Oint 3.5 Gm) 1 applic OU Q4HR PRN PRN Reason: Dry Eye(s) Ondansetron HCl (Ondansetron 4 Mg/2 Ml Inj) 4 mg IV Q8H PRN PRN Reason: Nausea And Vomiting Last Admin: 05/04/21 21:51 Dose: 4 mg Quetiapine Fumarate (Quetiapine 25 Mg Tab) 50 mg PO BID [facility] Last Admin: 05/09/21 10:35 Dose: 50 mg Senna/Docusate Sodium (Sennosides/Docusate Sodium 8.6/50 Mg Tab) 1 tab FEEDTUBE BID [facility] Last Admin: 05/09/21 10:35 Dose: 1 tab Sodium Chloride (Sodium Chloride 0.9% 10 Ml Flush Syringe) 10 ml IV BID [facility] Last Admin: 05/09/21 10:46 Dose: Not Given Sodium Chloride (Sodium Chloride 0.9% 10 Ml Flush Syringe) 10 ml IV PRN PRN PRN Reason: LINE FLUSH Last Admin: 05/06/21 13:59 Dose: 10 ml Sodium Chloride (Sodium Chloride 0.9% 50 Ml Ivpb) 10 ml IV PRN PRN PRN Reason: FLUSH Physical Examination - Physical Exam Narrative exam: Physical exam deferred to reduce risk of transmission of COVID-19. Please refer to primary team's note. - Constitutional Vitals: Vital Signs Temp Pulse Resp BP Pulse Ox 102.9 F H 72 10 L 141/89 98 05/09/21 12:37 05/09/21 12:00 05/09/21 12:00 05/09/21 12:00 05/09/21 12:00 Temperature -Last 24 Hours Temperature 102.9 F Temperature 99.9 F Results - Labs CBC & Chem 7: 05/09/21 09:48 05/09/21 04:20 Labs: Abnormal lab results 05/05/21 05/09/21 05/09/21 Range/Units 03:40 04:10 04:20 WBC (4.5-11.0) K/mm3 RBC (3.65-5.03) M/mm3 Hgb (11.8-15.2) gm/dl Hct (35.5-45.6) % MCV (84-94) fl RDW (13.2-15.2) % Lymph % (Auto) (13.4-35.0) % [place] % (Auto) (0.0-7.3) % Lymph # (Auto) (1.2-5.4) K/mm3 [place] # (Auto) (0.0-0.8) K/mm3 Seg Neutrophils % (40.0-70.0) % Seg Neutrophils # (1.8-7.7) K/mm3 ABG pO2 161.6 H (80.0-90.0) mm Hg ABG Hemoglobin 8.3 L (14.0-18.0) gm/dl Sodium 151 H (137-145) mmol/L Chloride 114.5 H (98-107) mmol/L Carbon Dioxide 21 L (22-30) mmol/L BUN 57 H (9-20) mg/dL Creatinine 2.4 H (0.8-1.3) mg/dL ALT 210 H (7-56) units/L C-Reactive Protein (0.00-1.30) mg/dL Albumin 2.9 L (3.9-5) g/dL Complement C3 72 L (82-185) mg/dL 05/09/21 05/09/21 05/09/21 Range/Units 04:20 09:48 09:48 WBC 11.7 H 11.6 H (4.5-11.0) K/mm3 RBC 2.79 L 3.00 L (3.65-5.03) M/mm3 Hgb 8.7 L 9.0 L (11.8-15.2) gm/dl Hct 26.5 L 28.4 L (35.5-45.6) % MCV 95 H (84-94) fl RDW 16.2 H 15.9 H (13.2-15.2) % Lymph % (Auto) 5.9 L (13.4-35.0) % [place] % (Auto) 8.9 H (0.0-7.3) % Lymph # (Auto) 0.7 L (1.2-5.4) K/mm3 [place] # (Auto) 1.0 H (0.0-0.8) K/mm3 Seg Neutrophils % 84.3 H (40.0-70.0) % Seg Neutrophils # 9.8 H (1.8-7.7) K/mm3 ABG pO2 (80.0-90.0) mm Hg ABG Hemoglobin (14.0-18.0) gm/dl Sodium (137-145) mmol/L Chloride (98-107) mmol/L Carbon Dioxide (22-30) mmol/L BUN (9-20) mg/dL Creatinine (0.8-1.3) mg/dL ALT (7-56) units/L C-Reactive Protein 8.70 H (0.00-1.30) mg/dL Albumin (3.9-5) g/dL Complement C3 (82-185) mg/dL Assessment and Plan Cultures: Blood culture no growth so far A/P: 56 yo M PMHx smoking, a fin, HTN, medication non-compliance #Severe COVID-19 pneumonia: Patient presented with a week of symptoms, chest x- ray with diffuse bilateral infiltrates, admission O2 sats decreased on room air. Inflammatory markers elevated #Acute hypoxemic respiratory failure: Likely secondary to COVID-19 infection. Currently on the vent #YE: Renally dose medications Recommendations: -Dexamethasone 6 mg IV/PO daily for 10 days -Not a candidate for remdesivir -Obtain q48-72h inflammatory markers - ferritin, Ddimer, CRP, LDH -Follow-up procalcitonin -Anticoagulation per hospital protocol -Proning as able Thank you for the consult, we will continue to follow. MD Jules [facility] O: [phone] F: [phone]
--- NOTE | 2021-05-09 15:16 | Progress Note ---
<DANIELVALENTIN MatteoChalino - Last Filed: 05/09/21 15:59> Assessment and Plan Assessment and plan: This is a 56-year-old male with nicotine and cocaine abuse, atrial fibrillation, hypertension and chronic medication noncompliance complicated by homelessness admitted with acute hypoxic respiratory failure, COVID-19 pneumonia, green saminitis, NSTEMI, hypertensive emergency and acute kidney injury A/P Acute hypoxic respiratory failure -CCM consulted, appreciate recommendations -Intubated on 05/05 with 7.50 ETT at 20 over the lips in the ED -A.m. vent setting: Assist-control rate 20, tidal volume 450, PEEP 6, FiO2 35% -ABG and CXR noted -See RT notes for titration -PSV today -VAP bundle -Continues SPO2 monitoring -Pulmonary perfusion study showed low probability of pulmonary embolism Severe COVID-19 pneumonia/leukocytosis -Infectious disease consulted, which recommendation -COVID-19 PCR positive -Continue droplet/precautions -Not a candidate for remdesivir given acute kidney injury -Dexamethasone for 10 days -Anticoagulation per hospital protocol -Trend COVID-19 from 2 markers (ferritin, D-dimer, CRP, LDH) Acute kidney injury -Nephrology consulted, appreciate recommendations -IVF per nephrology -Avoid nephrotoxic medications -Renally dose medication -Strict intake and output -Urine lites pending -Renal ultrasound completed: 1.7 hyper echoic mass within the left upper pole -Monitor follow-up with CT once stable Hypernatremia, hyperchloremia, metabolic acidosis -MIVF with half-normal saline -Trend sodium Hypertensive emergency -Continue BB -Blood pressure monitor per protocol -Resume home antihypertensive regimen as tolerated Heart failure reduced EF, cardiomyopathy, NSTEMI -Continue beta-sylvia and aspirin -Resume statin therapy -Cardiology consulted, appreciate recommendations -Echo 05/04/2021-EF 35 to 40%. Moderate concentric LVH. Moderate global hypokinesis of left ventricle. Mild mitral regurgitation. Mild pulmonary hypertension. Echocardiogram reviewed (08/27/2020): LVEF is 50 to 55%. Mild to moderate concentric LVF. Severe diastolic dysfunction is present (restrictive filling). Right ventricle is mildly hypokinetic. RVSP is 48 mmHg. No valvular abnormalities. -S/p heparin drip for 24 hours Polysubstance abuse, tobacco abuse -UDS positive for amphetamines -We will need cessation counseling when appropriate Transaminitis, h/o hepatitis C -Renal ultrasound showed incidental finding of cholelithiasis -Trend LFTs -Continue supportive management Anemia -Trend CBC -Transfuse for hemoglobin less than 7 DVT/ GI prophylaxis -Heparin subcu -PPI The high probability of a clinically significant, sudden or life threatening deterioration of the [cardio/resp] system(s) required my full and direct attention, intervention and personal management. The aggregate critical care time was [60] minutes. This time is in addition to time spent performing reported procedures but includes the following: [x] Data Review and interpretation [x] Patient assessment and monitoring of vital signs [x] Documentation [x] Medication orders and management Disposition Plan: ICU Total Time Spent with Patient (Minutes): 60 History Interval history: This is a 56-year-old male with a nicotine abuse, A. fib, hypertension, and chronic medication noncompliance and homelessness who presented to emergency department on 05/04 with complaints of dyspnea on exertion for the past month worsening over the past 3 days, intermittent left-sided chest tightness with activity, and persistent cough without fever. Work-up in the emergency department revealed anemia, hyponatremia, elevated BUN/creatinine and transaminitis. Patient was admitted to the hospitalist service with acute kidney injury and accelerated hypertension. Hospital course to date 05/04/2021. Cardiology was considering patient for [employer]. However, patient with elevated creatinine therefore will hold off on cath evaluation. Nephrology consultation for acute kidney injury. Etiology likely secondary to vasomotor nephropathy/dehydration. We will start IV fluid hydration. Check renal ultrasound to rule out obstructive uropathy. We will resume home medications for the accelerated hypertension 05/05/2021. Echocardiogram reveals EF 35-40% with moderate concentric left ventricular hypertrophy. Moderate global hypokinesis of left ventricle. Mild mitral regurgitation. Mild pulmonary hypertension. Troponins are believed to be elevated in the setting of acute kidney injury. No beta-blockers due to cocaine use continue heparin and nitro drip. Continue CIWA protocol. Await urine studies 05/06/2021. Patient decompensated yesterday with worsening respiratory failure and difficulty to protect airway. Patient was breathing sonorously, and hypoxic. Patient was intubated and currently is on mechanical ventilation. Patient with AC mode ventilation rate of 20, tidal volume 450, FiO2 40% and PEEP of 6. COVID PCR testing on 05/05/2021 was found to be positive. Echocardiogram completed on this admission shows worsening EF from August 2020. Echocardiogram now reveals moderate concentric left ventricular hypertrophy with moderate globa l hypokinesis and EF of 35-40%. Mild pulmonary hypertension. 05/08: Continue current management, renal stable, LFTs stable and if improved will start on statin therapy. 05/09: Patient is febrile, will panculture, PSV today. CRP pending. Mucoid discharge noted from meatus which was sent for culture. Hypernatremia persists, free water flushes increased Hospitalist Physical - Constitutional Vitals: Temp Pulse Resp BP Pulse Ox 102.9 F H 87 16 163/98 99 05/09/21 12:37 05/09/21 14:57 05/09/21 13:00 05/09/21 14:57 05/09/21 13:00 General appearance: Present: no acute distress - EENT Eyes: Present: PERRL, EOM intact ENT: dentition normal - Neck Neck: Present: normal ROM - Respiratory Respiratory effort: normal Respiratory: bilateral: diminished - Cardiovascular Rhythm: regular Heart Sounds: Present: S1 & S2. Absent: systolic murmur, diastolic murmur - Extremities Extremities: no ischemia, pulses intact, pulses symmetrical, No edema, normal temperature, normal color Peripheral Pulses: within normal limits - Abdominal General gastrointestinal: soft, non-tender, non-distended, normal bowel sounds - Integumentary Integumentary: Present: warm, dry - Psychiatric Psychiatric: other (sedated) - Neurologic Neurologic: moves all extremities, other (sedated) - Allied Health Allied health notes reviewed: nursing, RT, social work HEART Score - HEART Score EKG: Non-specific Age: 45-65 Risk factors: 1-2 risk factors Troponin: Troponin T 1.400 ng/mL (0.00-0.029) H* 05/04/21 13:34 Troponin: 1-3x normal limit - Critical Actions Critical Actions: 4-6 pts:12-16.6% risk of adverse cardiac event. Should be admitted Results - Labs CBC & Chem 7: 05/09/21 09:48 05/09/21 04:20 Labs: Laboratory Last Values WBC 11.6 K/mm3 (4.5-11.0) H 05/09/21 09:48 RBC 3.00 M/mm3 (3.65-5.03) L 05/09/21 09:48 Hgb 9.0 gm/dl (11.8-15.2) L 05/09/21 09:48 Hct 28.4 % (35.5-45.6) L 05/09/21 09:48 MCV 94 fl (84-94) 05/09/21 09:48 MCH 30 pg (28-32) 05/09/21 09:48 MCHC 32 % (32-34) 05/09/21 09:48 RDW 15.9 % (13.2-15.2) H 05/09/21 09:48 Plt Count 353 K/mm3 (140-440) 05/09/21 09:48 Lymph % (Auto) 5.9 % (13.4-35.0) L 05/09/21 09:48 [place] % (Auto) 8.9 % (0.0-7.3) H 05/09/21 09:48 Eos % (Auto) 0.4 % (0.0-4.3) 05/09/21 09:48 Baso % (Auto) 0.5 % (0.0-1.8) 05/09/21 09:48 Lymph # (Auto) 0.7 K/mm3 (1.2-5.4) L 05/09/21 09:48 [place] # (Auto) 1.0 K/mm3 (0.0-0.8) H 05/09/21 09:48 Eos # (Auto) 0.0 K/mm3 (0.0-0.4) 05/09/21 09:48 Baso # (Auto) 0.1 K/mm3 (0.0-0.1) 05/09/21 09:48 Seg Neutrophils % 84.3 % (40.0-70.0) H 05/09/21 09:48 Seg Neutrophils # 9.8 K/mm3 (1.8-7.7) H 05/09/21 09:48 PT 15.1 Sec. (12.2-14.9) H 05/04/21 07:25 INR 1.07 (0.87-1.13) 05/04/21 07:25 APTT 31.9 Sec. (24.2-36.6) 05/04/21 07:25 D-Dimer 579.49 ng/mlDDU (0-234) H 05/04/21 07:25 Heparin Anti-Xa Level < 0.10 U.I./ml (0.3-0.7) L 05/07/21 22:41 ABG pH 7.438 pH Units (7.350-7.450) 05/09/21 04:10 ABG pCO2 34.5 mm Hg 05/09/21 04:10 ABG pO2 161.6 mm Hg (80.0-90.0) H 05/09/21 04:10 ABG HCO3 22.8 mmol/L (20.0-26.0) 05/09/21 04:10 ABG O2 Saturation 99.0 % (95.0-99.0) 05/09/21 04:10 ABG O2 Content 11.6 (0.0-44) 05/09/21 04:10 ABG Base Excess -1.1 mmol/L (-2.0-3.0) 05/09/21 04:10 ABG Hemoglobin 8.3 gm/dl (14.0-18.0) L 05/09/21 04:10 ABG Carboxyhemoglobin 1.6 % (0.0-5.0) 05/09/21 04:10 ABG Methemoglobin 0.6 % (0.0-1.5) 05/09/21 04:10 Oxyhemoglobin 96.8 % (95.0-99.0) 05/09/21 04:10 FiO2 35 % 05/09/21 04:10 Sodium 151 mmol/L (137-145) H 05/09/21 04:20 Potassium 3.9 mmol/L (3.6-5.0) 05/09/21 04:20 Chloride 114.5 mmol/L (98-107) H 05/09/21 04:20 Carbon Dioxide 21 mmol/L (22-30) L 05/09/21 04:20 Anion Gap 19 mmol/L 05/09/21 04:20 BUN 57 mg/dL (9-20) H 05/09/21 04:20 Creatinine 2.4 mg/dL (0.8-1.3) H 05/09/21 04:20 Estimated GFR 28 ml/min 05/09/21 04:20 BUN/Creatinine Ratio 24 % 05/09/21 04:20 Glucose 95 mg/dL (75-100) 05/09/21 04:20 POC Glucose 96 mg/dL (70-105) 05/09/21 12:06 Calcium 8.7 mg/dL (8.4-10.2) 05/09/21 04:20 Magnesium 2.20 mg/dL (1.7-2.3) 05/04/21 08:42 Total Bilirubin 0.60 mg/dL (0.1-1.2) 05/09/21 04:20 AST 20 units/L (5-40) 05/09/21 04:20 ALT 210 units/L (7-56) H 05/09/21 04:20 Alkaline Phosphatase 58 units/L (35-129) 05/09/21 04:20 Total Creatine Kinase 406 units/L (55-170) H 05/04/21 08:42 Troponin T 1.400 ng/mL (0.00-0.029) H* 05/04/21 13:34 C-Reactive Protein 8.70 mg/dL (0.00-1.30) H 05/09/21 09:48 Total Protein 6.3 g/dL (6.3-8.2) 05/09/21 04:20 Albumin 2.9 g/dL (3.9-5) L 05/09/21 04:20 Albumin/Globulin Ratio 0.9 % 05/09/21 04:20 Triglycerides 62 mg/dL (2-149) 05/04/21 07:25 Cholesterol 140 mg/dL (50-199) 05/04/21 07:25 LDL Cholesterol Direct 89 mg/dL (50-130) 05/04/21 07:25 HDL Cholesterol 48 mg/dL (40-59) 05/04/21 07:25 Cholesterol/HDL Ratio 2.91 % 05/04/21 07:25 Urine Color Yellow (Yellow) 05/09/21 00:40 Urine Turbidity Turbid (Clear) 05/09/21 00:40 Urine pH 5.0 (5.0-7.0) 05/09/21 00:40 Ur Specific [place] 1.016 (1.003-1.030) 05/09/21 00:40 Urine Protein 30 mg/dl mg/dL (Negative) 05/09/21 00:40 Urine Glucose (UA) Neg mg/dL (Negative) 05/09/21 00:40 Urine Ketones Tr mg/dL (Negative) 05/09/21 00:40 Urine Blood Lg (Negative) 05/09/21 00:40 Urine Nitrite Neg (Negative) 05/09/21 00:40 Urine Bilirubin Neg (Negative) 05/09/21 00:40 Urine Urobilinogen < 2.0 mg/dL (<2.0) 05/09/21 00:40 Ur Leukocyte Esterase Lg (Negative) 05/09/21 00:40 Urine WBC (Auto) 6.0 /HPF (0.0-6.0) 05/09/21 00:40 Urine RBC (Auto) 21.0 /HPF (0.0-6.0) 05/09/21 00:40 Urine Bacteria (Auto) 1+ /HPF (Negative) 05/09/21 00:40 Uric Acid Crystals Few 05/09/21 00:40 Amorphous Crystals Few 05/09/21 00:40 Urine Mucus Few /HPF 05/09/21 00:40 Urine Opiates Screen Negative 05/04/21 Unknown Urine Methadone Screen Negative 05/04/21 Unknown Ur Barbiturates Screen Negative 05/04/21 Unknown Ur Phencyclidine Scrn Negative 05/04/21 Unknown Ur Amphetamines Screen Positive 05/04/21 Unknown U Benzodiazepines Scrn Negative 05/04/21 Unknown Urine Cocaine Screen Negative 05/04/21 Unknown U Marijuana (THC) Screen Negative 05/04/21 Unknown Drugs of Abuse Note Disclamer 05/04/21 Unknown AUDRA Screen Negative (Negative) 05/05/21 03:40 Proteinase 3 (PR3) Ab <1.0 AI (<1.0) 05/05/21 03:40 Myeloperoxidase Ab <1.0 AI (<1.0) 05/05/21 03:40 Complement C3 72 mg/dL (82-185) L 05/05/21 03:40 Complement C4 17 mg/dL (15-53) 05/05/21 03:40 Coronavirus (PCR) Positive (Negative) A 05/05/21 08:30 Hepatitis A IgM Ab Non-reactive (NonReactive) 05/05/21 03:40 Hep Bs Antigen Non-reactive (Negative) 05/05/21 03:40 Hep B Core IgM Ab Non-reactive (NonReactive) 05/05/21 03:40 Hepatitis C Antibody Reactive (NonReactive) A 05/05/21 03:40 Microbiology: Microbiology 05/07/21 16:16 Peripheral/Venous Blood Culture - Preliminary NO GROWTH AFTER 24 HOURS 05/07/21 16:28 Peripheral/Venous Blood Culture - Preliminary NO GROWTH AFTER 24 HOURS Mer[place]/IV: Voiding Method Condom Catheter Active Medications - Current Medications Current Medications: Generic Name Dose Route Start Last Admin Trade Name Freq PRN Reason Stop Dose Admin Acetaminophen 650 mg 05/04/21 12:34 05/09/21 12:32 Acetaminophen 325 Mg Tab PO 650 mg Q4H PRN Administration Pain MILD(1-3)/Fever >100.5/MARIA Acetaminophen 650 mg 05/07/21 16:00 05/07/21 15:54 Acetaminophen 650 Mg Rect Supp LA 650 mg Q4H PRN Administration Pain, Mild (1-3) Aspirin 81 mg 05/06/21 14:00 05/09/21 10:35 Aspirin 81 Mg Tab Chew PO 81 mg QDAY RISHI Administration Atorvastatin Calcium 40 mg 05/09/21 22:00 Atorvastatin 40 Mg Tab FEEDTUBE QHS RISHI Dexamethasone 8 mg 05/08/21 12:00 05/09/21 10:34 Dexamethasone 4 Mg/Ml Vial IV 05/17/21 10:01 8 mg Q24HR RISHI Administration Dextrose 0 ml 05/09/21 10:49 Dextrose 10% *Hypoglycemia IV PRN PRN Hypoglycemia Famotidine 10 mg 05/06/21 11:30 05/09/21 10:35 Famotidine 20 Mg/2 Ml Inj IV 10 mg BID RISHI Administration Fentanyl 50 mcg 05/05/21 15:21 Fentanyl 100 Mcg/2 Ml Inj IV Q10MIN PRN ANALGESIA Heparin Sodium (Porcine) 5,000 unit 05/06/21 22:00 05/09/21 10:35 Heparin 5,000 Unit/1 Ml Vial SUB-Q 5,000 unit Q12HR RISHI Administration Hydralazine HCl 50 mg 05/04/21 14:00 05/09/21 14:57 Hydralazine 25 Mg Tab PO 50 mg Q8HR RISHI Administration Hydralazine HCl 10 mg 05/07/21 16:16 05/07/21 20:26 Hydralazine 20 Mg/1 Ml Inj IV 10 mg Q2H PRN Administration Blood Pressure Hydrophilic Ointment 1 applic 05/05/21 15:21 Lip Therapy Vaseline TP Q2HR PRN Dry Lips Fentanyl Citrate 2,000 mcg in 100 mls @ 4.082 mls/hr 05/05/21 16:00 05/09/21 15:03 Fentanyl Drip Premix IV 1 mcg/kg/hr TITR RISHI 4.082 mls/hr Titration Protocol 1 MCG/KG/HR Propofol 1,000 mg in 100 mls @ 2.449 mls/hr 05/05/21 16:00 05/09/21 06:16 Diprivan 10 Mg/Ml IV 20 mcg/kg/min TITR RISHI 9.798 mls/hr Administration Protocol 5 MCG/KG/MIN Sodium Chloride 1,000 mls @ 75 mls/hr 05/07/21 14:00 05/09/21 12:49 Nacl 0.45% 1000 Ml IV 75 mls/hr DIRECT RISHI Administration Lorazepam 0.5 mg 05/04/21 15:46 05/04/21 21:51 Lorazepam 2 Mg/Ml Vial IV 0.5 mg Q4H PRN Administration Anxiety Metoprolol Tartrate 50 mg 05/06/21 14:00 05/09/21 10:36 Metoprolol Tartrate 50 Mg Tab PO 50 mg BID RISHI Administration Multi-Ingred Cream/Lotion/Oil/Oint 1 applic 05/05/21 15:21 Mineral Oil/Petrolatum, White Ophth Oint 3.5 Gm OU Q4HR PRN Dry Eye(s) Ondansetron HCl 4 mg 05/04/21 12:34 05/04/21 21:51 Ondansetron 4 Mg/2 Ml Inj IV 4 mg Q8H PRN Administration Nausea And Vomiting Quetiapine Fumarate 50 mg 05/09/21 10:00 05/09/21 10:35 Quetiapine 25 Mg Tab PO 50 mg BID RISHI Administration Senna/Docusate Sodium 1 tab 05/05/21 22:00 05/09/21 10:35 Sennosides/Docusate Sodium 8.6/50 Mg Tab FEEDTUBE 1 tab BID RISHI Administration Sodium Chloride 10 ml 05/04/21 22:00 05/09/21 10:46 Sodium Chloride 0.9% 10 Ml Flush Syringe IV Not Given BID RISHI Sodium Chloride 10 ml 05/04/21 12:34 05/06/21 13:59 Sodium Chloride 0.9% 10 Ml Flush Syringe IV 10 ml PRN PRN Administration LINE FLUSH Sodium Chloride 10 ml 05/09/21 09:46 Sodium Chloride 0.9% 50 Ml Ivpb IV PRN PRN FLUSH Nutrition/Malnutrition Assess - Dietary Evaluation Nutrition/Malnutrition Findings: Nutrition Notes Start: 05/05/21 16:15 Freq: Status: Active Protocol: Document 05/09/21 11:40 MORALES (Rec: 05/09/21 12:17 MORALES [id number]) Nutrition Notes Need for Assessment generated from: MD Order Initial or Follow up Assessment Current Diagnosis Acute Kidney Injury, Hypertension Other Pertinent Diagnosis COVID-19, NSTEMI, Hep-C, Anemia, Metabolic Acidosis, Transaminitis, Drug ab Current Diet TF-Promote @ 60 ml/hr (since D 05/09). Labs/Tests 05/09: Na 151, Cl 114.5, CO2 21, BUN 57, Crea 2.4. Pertinent Medications 05/09: NaCl 0.45% 1000 ml @ 75 ml/hr, Propofol 1000mg in 100 ml @ 2.449 ml/hr (65 Kcal), others nutritionally unremarkable. Height 5 ft 7 in Weight 81.647 kg [place] Body Weight (kg) 67.27 BMI 28.1 Weight change and time frame No body weight change in 4 days reported. Weight Status Overweight Subjective/Other Information RD consult for routine F/u and MD request to write/manage TF . Pt is on mechanical ventilation, according to Physical Assessment History notes. Pt has missing teeth, according to Physical Assessment History notes. F/U for TF tolerance. Percent of energy/protein needs met: Prescribed Promote @ 60 ml/hr provides for energy/protein needs (1,444 Kcal/90 g) during LOS, 75% Kcal; 90% AA. Burn Absent Trauma Absent GI Symptoms None Difficulty In Chewing Food Allergy No Skin Integrity/Comment Clear, warm, dry. Current % PO Other Minimum of two criteria No #1 Nutrition Diagnosis Inadequate oral intake Etiology Pt on mechanical ventilaton. As Evidenced by Signs and Symptoms Pt currently on NPO. Is patient on ventilator? Yes Is Patient Ambulatory and/or Out of Bed No REE-([facility]-confined to bed) 7064.241 Calculation Used for Recommendations 70-80% of EEN Additional Notes 15-20 Kcal/Kg ABW. Protein: 1.2-2 g/Kg; 100-164 g /day. Fluids: 1 ml/Kcal, or as per MD. Nutrition Intervention Nutrition Support: Start Promote @ 60 ml/hr. Flush: 120 ml water Q 4 hr, or as per MD. Kcal 1,444 Protein (gm) 90 Carbohydrates (gm) 188 Fat (gm) 38 Fluid (mL) 1,212 Fiber (gm) 0 % RDI: 75% Kcal; 90% AA. Goal #1 Provide at least 75% of energy /protein needs through Enteral Feeding during LOS. Follow-Up By: 05/11/21 Additional Comments Continue monitoring TF tolerance and BM. <VIKRAM SAENZ - Last Filed: 05/13/21 09:41> Assessment and Plan Assessment and plan: I saw and evaluated the patient. I agree with the findings and the plan of care as documented in the Nurse Practitioner's~note, with the following corrections and additions. Hospitalist Physical - Constitutional Vitals: Temp Pulse Resp BP Pulse Ox 98.3 F 61 12 114/80 100 05/13/21 08:00 05/13/21 08:21 05/13/21 08:21 05/13/21 08:21 05/13/21 08:21 HEART Score - HEART Score Troponin: Troponin T 1.400 ng/mL (0.00-0.029) H* 05/04/21 13:34 Results - Labs CBC & Chem 7: 05/13/21 04:20 05/13/21 04:20 Labs: Laboratory Last Values WBC 13.1 K/mm3 (4.5-11.0) H 05/13/21 04:20 RBC 2.86 M/mm3 (3.65-5.03) L 05/13/21 04:20 Hgb 8.5 gm/dl (11.8-15.2) L 05/13/21 04:20 Hct 26.9 % (35.5-45.6) L 05/13/21 04:20 MCV 94 fl (84-94) 05/13/21 04:20 MCH 30 pg (28-32) 05/13/21 04:20 MCHC 32 % (32-34) 05/13/21 04:20 RDW 15.7 % (13.2-15.2) H 05/13/21 04:20 Plt Count 220 K/mm3 (140-440) 05/13/21 04:20 Lymph % (Auto) 11.5 % (13.4-35.0) L 05/12/21 07:19 [place] % (Auto) 8.2 % (0.0-7.3) H 05/12/21 07:19 Eos % (Auto) 0.1 % (0.0-4.3) 05/12/21 07:19 Baso % (Auto) 0.2 % (0.0-1.8) 05/12/21 07:19 Lymph # (Auto) 1.4 K/mm3 (1.2-5.4) 05/12/21 07:19 [place] # (Auto) 1.0 K/mm3 (0.0-0.8) H 05/12/21 07:19 Eos # (Auto) 0.0 K/mm3 (0.0-0.4) 05/12/21 07:19 Baso # (Auto) 0.0 K/mm3 (0.0-0.1) 05/12/21 07:19 Seg Neutrophils % 80.0 % (40.0-70.0) H 05/12/21 07:19 Seg Neutrophils # 9.6 K/mm3 (1.8-7.7) H 05/12/21 07:19 PT 15.6 Sec. (12.2-14.9) H 05/11/21 14:43 INR 1.12 (0.87-1.13) 05/11/21 14:43 APTT 30.3 Sec. (24.2-36.6) 05/11/21 14:43 D-Dimer 2730.61 ng/mlDDU (0-234) H 05/12/21 07:19 Heparin Anti-Xa Level 0.13 U.I./ml (0.3-0.7) L 05/12/21 23:30 ABG pH 7.426 pH Units (7.350-7.450) 05/11/21 13:51 ABG pCO2 31.5 mm Hg 05/11/21 13:51 ABG pO2 74.9 mm Hg (80.0-90.0) L 05/11/21 13:51 ABG HCO3 20.3 mmol/L (20.0-26.0) 05/11/21 13:51 ABG O2 Saturation 97.0 % (95.0-99.0) 05/11/21 13:51 ABG O2 Content 14.6 (0.0-44) 05/11/21 13:51 ABG Base Excess -3.3 mmol/L (-2.0-3.0) L 05/11/21 13:51 ABG Hemoglobin 10.8 gm/dl (14.0-18.0) L 05/11/21 13:51 ABG Carboxyhemoglobin 1.3 % (0.0-5.0) 05/11/21 13:51 ABG Methemoglobin 0.6 % (0.0-1.5) 05/11/21 13:51 Oxyhemoglobin 95.1 % (95.0-99.0) 05/11/21 13:51 FiO2 30 % 05/11/21 13:51 Sodium 145 mmol/L (137-145) 05/13/21 04:20 Potassium 4.1 mmol/L (3.6-5.0) 05/13/21 04:20 Chloride 111.2 mmol/L (98-107) H 05/13/21 04:20 Carbon Dioxide 23 mmol/L (22-30) 05/13/21 04:20 Anion Gap 15 mmol/L 05/13/21 04:20 BUN 53 mg/dL (9-20) H 05/13/21 04:20 Creatinine 1.9 mg/dL (0.8-1.3) H 05/13/21 04:20 Estimated GFR 37 ml/min 05/13/21 04:20 BUN/Creatinine Ratio 28 % 05/13/21 04:20 Glucose 121 mg/dL (75-100) H 05/13/21 04:20 POC Glucose 102 mg/dL (70-105) 05/13/21 05:23 Calcium 8.3 mg/dL (8.4-10.2) L 05/13/21 04:20 Magnesium 2.30 mg/dL (1.7-2.3) 05/10/21 04:57 Ferritin 640.2 ng/mL (30.0-300.0) H 05/12/21 07:19 Total Bilirubin 0.60 mg/dL (0.1-1.2) 05/09/21 04:20 AST 20 units/L (5-40) 05/09/21 04:20 ALT 210 units/L (7-56) H 05/09/21 04:20 Alkaline Phosphatase 58 units/L (35-129) 05/09/21 04:20 Lactate Dehydrogenase 314 units/L (91-180) H 05/12/21 07:19 Total Creatine Kinase 406 units/L (55-170) H 05/04/21 08:42 Troponin T 1.400 ng/mL (0.00-0.029) H* 05/04/21 13:34 C-Reactive Protein 1.60 mg/dL (0.00-1.30) H 05/12/21 07:19 Total Protein 6.3 g/dL (6.3-8.2) 05/09/21 04:20 Albumin 2.9 g/dL (3.9-5) L 05/09/21 04:20 Albumin/Globulin Ratio 0.9 % 05/09/21 04:20 Triglycerides 144 mg/dL (2-149) 05/10/21 04:57 Cholesterol 140 mg/dL (50-199) 05/04/21 07:25 LDL Cholesterol Direct 89 mg/dL (50-130) 05/04/21 07:25 HDL Cholesterol 48 mg/dL (40-59) 05/04/21 07:25 Cholesterol/HDL Ratio 2.91 % 05/04/21 07:25 Procalcitonin 0.63 ng/mL (<0.15) 05/09/21 15:53 Urine Color Yellow (Yellow) 05/09/21 13:22 Urine Turbidity Turbid (Clear) 05/09/21 13:22 Urine pH 5.0 (5.0-7.0) 05/09/21 13:22 Ur Specific [place] 1.018 (1.003-1.030) 05/09/21 13:22 Urine Protein 100 mg/dl mg/dL (Negative) 05/09/21 13:22 Urine Glucose (UA) Neg mg/dL (Negative) 05/09/21 13:22 Urine Ketones Tr mg/dL (Negative) 05/09/21 13:22 Urine Blood Mod (Negative) 05/09/21 13:22 Urine Nitrite Neg (Negative) 05/09/21 13:22 Urine Bilirubin Neg (Negative) 05/09/21 13:22 Urine Urobilinogen < 2.0 mg/dL (<2.0) 05/09/21 13:22 Ur Leukocyte Esterase Mod (Negative) 05/09/21 13:22 Urine WBC (Auto) 25.0 /HPF (0.0-6.0) H 05/09/21 13:22 Urine RBC (Auto) 8.0 /HPF (0.0-6.0) 05/09/21 13:22 U Epithel Cells (Auto) < 1.0 /HPF (0-13.0) 05/09/21 13:22 Urine Bacteria (Auto) 1+ /HPF (Negative) 05/09/21 00:40 Uric Acid Crystals Few 05/09/21 00:40 Triple Phos Crystals 2+ 05/09/21 13:22 Amorphous Crystals Few 05/09/21 00:40 Urine Mucus Few /HPF 05/09/21 00:40 Urine Creatinine 100.8 mg/dL (0.1-20.0) H 05/10/21 11:03 Protein/Creatinin Ratio 0.42 05/10/21 11:03 Urine Sodium 61 mmol/L 05/05/21 09:57 Urine Total Protein 42 mg/dL (5-11.8) H 05/10/21 11:03 Urine Opiates Screen Negative 05/04/21 Unknown Urine Methadone Screen Negative 05/04/21 Unknown Ur Barbiturates Screen Negative 05/04/21 Unknown Ur Phencyclidine Scrn Negative 05/04/21 Unknown Ur Amphetamines Screen Positive 05/04/21 Unknown U Benzodiazepines Scrn Negative 05/04/21 Unknown Urine Cocaine Screen Negative 05/04/21 Unknown U Marijuana (THC) Screen Negative 05/04/21 Unknown Drugs of Abuse Note Disclamer 05/04/21 Unknown Immunofix Electrophor see below 05/05/21 03:40 AUDRA Screen Negative (Negative) 05/05/21 03:40 Proteinase 3 (PR3) Ab <1.0 AI (<1.0) 05/05/21 03:40 Myeloperoxidase Ab <1.0 AI (<1.0) 05/05/21 03:40 Complement C3 72 mg/dL (82-185) L 05/05/21 03:40 Complement C4 17 mg/dL (15-53) 05/05/21 03:40 Coronavirus (PCR) Positive (Negative) A 05/05/21 08:30 Hepatitis A IgM Ab Non-reactive (NonReactive) 05/05/21 03:40 Hep Bs Antigen Non-reactive (Negative) 05/05/21 03:40 Hep B Core IgM Ab Non-reactive (NonReactive) 05/05/21 03:40 Hepatitis C Antibody Reactive (NonReactive) A 05/05/21 03:40 Microbiology: Microbiology 05/07/21 16:16 Peripheral/Venous Blood Culture - Final NO GROWTH AFTER 5 DAYS 05/07/21 16:28 Peripheral/Venous Blood Culture - Final NO GROWTH AFTER 5 DAYS 05/09/21 15:25 Urethra Neisseria gonorrhoeae Culture - Preliminary 05/09/21 13:53 Peripheral/Venous Blood Culture - Preliminary NO GROWTH AFTER 72 HOURS 05/09/21 13:53 Peripheral/Venous Blood Culture - Preliminary NO GROWTH AFTER 72 HOURS 05/09/21 13:22 Urine,Clean Catch Urine Culture - Preliminary Enterococcus Faecalis Merino/IV: Voiding Method Condom Catheter Active Medications - Current Medications Current Medications: Generic Name Dose Route Start Last Admin Trade Name Freq PRN Reason Stop Dose Admin Acetaminophen 650 mg 05/04/21 12:34 05/11/21 11:24 Acetaminophen 325 Mg Tab PO 650 mg Q4H PRN Administration Pain MILD(1-3)/Fever >100.5/MARIA Acetaminophen 650 mg 05/07/21 16:00 05/11/21 16:25 Acetaminophen 650 Mg Rect Supp LA 650 mg Q4H PRN Administration Pain, Mild (1-3) Aspirin 81 mg 05/06/21 14:00 05/12/21 09:18 Aspirin 81 Mg Tab Chew PO 81 mg QDAY RISHI Administration Atorvastatin Calcium 40 mg 05/09/21 22:00 05/12/21 22:35 Atorvastatin 40 Mg Tab FEEDTUBE 40 mg QHS RISHI Administration Chlordiazepoxide HCl 75 mg 05/11/21 15:00 05/13/21 09:19 Chlordiazepoxide 25 Mg Cap PO 75 mg Q8H RISHI Administration Dexamethasone 8 mg 05/08/21 12:00 05/12/21 09:18 Dexamethasone 4 Mg/Ml Vial IV 05/17/21 10:01 8 mg Q24HR RISHI Administration Dextrose 0 ml 05/09/21 10:49 Dextrose 10% *Hypoglycemia IV PRN PRN Hypoglycemia Famotidine 10 mg 05/12/21 10:00 05/12/21 22:31 Famotidine 10 Mg Tab FEEDTUBE 10 mg BID RISHI Administration Fentanyl 50 mcg 05/05/21 15:21 Fentanyl 100 Mcg/2 Ml Inj IV Q10MIN PRN ANALGESIA Haloperidol Lactate 5 mg 05/09/21 18:32 05/10/21 11:10 Haloperidol Lactate 5 Mg/1 Ml Inj IV 5 mg Q6H PRN Administration Agitation Heparin Sodium (Porcine) 3,000 unit 05/11/21 14:14 Heparin 10,000 Units/10 Ml Vial IV Q6H PRN Anti-Xa Assay < 0.1 units/ml Hydralazine HCl 50 mg 05/04/21 14:00 05/13/21 05:10 Hydralazine 25 Mg Tab PO Not Given Q8HR RISHI Hydralazine HCl 10 mg 05/07/21 16:16 05/09/21 17:35 Hydralazine 20 Mg/1 Ml Inj IV 10 mg Q2H PRN Administration Blood Pressure Hydrophilic Ointment 1 applic 05/05/21 15:21 Lip Therapy Vaseline TP Q2HR PRN Dry Lips Fentanyl Citrate 2,000 mcg in 100 mls @ 4.082 mls/hr 05/05/21 16:00 05/13/21 05:49 Fentanyl Drip Premix IV 1 mcg/kg/hr TITR RISHI 4.082 mls/hr Titration Protocol 1 MCG/KG/HR Propofol 1,000 mg in 100 mls @ 2.449 mls/hr 05/05/21 16:00 05/09/21 06:16 Diprivan 10 Mg/Ml IV 20 mcg/kg/min TITR RISHI 9.798 mls/hr Administration Protocol 5 MCG/KG/MIN Heparin Sodium/Sodium Chloride 25,000 unit in 500 mls @ 24 mls/hr 05/11/21 15: 00 05/13/21 05:08 Heparin/ 0.45% Nacl-25,000 Unit/500 Ml IV 1,450 units/hr TITR RISHI 29 mls/hr Administration Protocol 1,200 UNITS/HR Ceftriaxone Sodium 2 gm in 100 mls @ 200 mls/hr 05/12/21 10:00 05/12/21 11:01 Rocephin/Ns 2 Gm/100 Ml IV 05/14/21 10:29 200 mls/hr Q24H RISHI Administration Protocol Insulin Human Lispro 0 unit 05/10/21 09:40 05/12/21 16:49 Insulin Lispro 100 Unit/Ml SUB-Q 2 unit Q6HR PRN Administration Hyperglycemia Protocol Metoprolol Tartrate 50 mg 05/10/21 14:00 05/13/21 09:23 Metoprolol Tartrate 50 Mg Tab FEEDTUBE Not Given TID RISHI Multi-Ingred Cream/Lotion/Oil/Oint 1 applic 05/05/21 15:21 Mineral Oil/Petrolatum, White Ophth Oint 3.5 Gm OU Q4HR PRN Dry Eye(s) Nitrofurantoin Macrocrystals 100 mg 05/13/21 10:00 Nitrofurantoin Monohyd/M-Cryst 100 Mg Cap PO 05/19/21 22:01 Q12HR [facility] Protocol Ondansetron HCl 4 mg 05/04/21 12:34 05/04/21 21:51 Ondansetron 4 Mg/2 Ml Inj IV 4 mg Q8H PRN Administration Nausea And Vomiting Quetiapine Fumarate 200 mg 05/09/21 22:00 05/12/21 22:31 Quetiapine 200 Mg Tab PO 200 mg BID RISHI Administration Senna/Docusate Sodium 1 tab 05/05/21 22:00 05/12/21 22:31 Sennosides/Docusate Sodium 8.6/50 Mg Tab FEEDTUBE 1 tab BID RISHI Administration Sodium Chloride 10 ml 05/04/21 22:00 05/12/21 22:32 Sodium Chloride 0.9% 10 Ml Flush Syringe IV 10 ml BID RISHI Administration Sodium Chloride 10 ml 05/04/21 12:34 05/06/21 13:59 Sodium Chloride 0.9% 10 Ml Flush Syringe IV 10 ml PRN PRN Administration LINE FLUSH Sodium Chloride 10 ml 05/09/21 09:46 Sodium Chloride 0.9% 50 Ml Ivpb IV PRN PRN FLUSH Nutrition/Malnutrition Assess - Dietary Evaluation Nutrition/Malnutrition Findings: Nutrition Notes Start: 05/05/21 16:15 Freq: Status: Active Protocol: Document 05/11/21 16:30 MORALES (Rec: 05/11/21 16:40 [email or web address]) Nutrition Notes Initial or Follow up Brief Note Current Diet TF-Promote @ 60 ml/hr (since D 05/09). Height 5 ft 7 in Weight 81.647 kg [place] Body Weight (kg) 67.27 BMI 28.1 Weight change and time frame No body weight change in 2 days reported. Weight Status Overweight Subjective/Other Information RD consult for routine F/U on TF tolerance. TF continues as prescribed well tolerated. Pt continues on mechanical ventilation. Percent of energy/protein needs met: Prescribed Promote @ 60 ml/hr provides for energy/protein needs (1,444 Kcal/90 g) during LOS, 75% Kcal; 90% AA. #1 Nutrition Diagnosis Inadequate oral intake Diagnosis Progress(for reassessment Continues documentation) Is patient on ventilator? Yes Is Patient Ambulatory and/or Out of Bed No REE-([place]-confined to bed) 5531.426 Calculation Used for Recommendations 70-80% of EEN Additional Notes 15-20 Kcal/Kg ABW. Protein: 1.2-2 g/Kg; 100-164 g /day. Fluids: 1 ml/Kcal, or as per MD. Nutrition Intervention Nutrition Support: Continue Promote @ 60 ml/hr. Flush: 120 ml water Q 4 hr, or as per MD. Kcal 1,444 Protein (gm) 90 Carbohydrates (gm) 188 Fat (gm) 38 Fluid (mL) 1,212 Fiber (gm) 0 % RDI: 75% Kcal; 90% AA. Goal #1 Provide at least 75% of energy /protein needs through Enteral Feeding during LOS. Follow-Up By: 05/16/21 Additional Comments Continue monitoring TF tolerance and BM.
[2021-05-09 15:36] LABS: ABG Base Excess -2.8 mmol/L (-2.0-3.0); ABG HCO3 21.6 mmol/L (20.0-26.0); ABG Methemoglobin 0.6 % (0.0-1.5); ABG Oxygen Saturation 97.7 % (95.0-99.0); ABG PCO2 35.8 mm Hg; ABG PH 7.399 pH Units (7.350-7.450)
[2021-05-09 16:09] LABS: Bilirubin,Urine NEG (Negative); Blood,Urine MOD (Negative); Color,Urine Yellow (Yellow); Urobilinogen,Urine < 2.0 mg/dL (<2.0)
[2021-05-09 16:18] LABS: Triple Phosphate Crystal,Urine 2+
[2021-05-09] MEDS: hydrALAZINE 20 MG/1 ML INJ IV PRN (17:35)
[2021-05-09] MEDS ORDERED: QUEtiapine 100 MG TAB PO ONE (20:27)
[2021-05-09] MEDS: LORazepam 2 MG/ML VIAL IV PRN (21:56)
[2021-05-09] MEDS: HALOPERIDOL LACTATE 5 MG/1 ML INJ IV PRN (21:56)
[2021-05-09] MEDS: QUEtiapine 200 MG TAB PO SCH (21:59)
[2021-05-09] MEDS ORDERED: QUEtiapine 100 MG TAB PO SCH (22:00)
[2021-05-09] MEDS ORDERED: dilTIAZem/D5W 100 MG/100 ML BAG IV SCH (23:00)
[2021-05-09] MEDS ORDERED: dilTIAZem 25 MG/5 ML INJ IV ONE (23:24)
[2021-05-10] MEDS: SODIUM CHLORIDE 0.45% 1000 ML 1,000 ML IV SCH ×2 (02:31→14:23)
[2021-05-10] MEDS: ACETAMINOPHEN 325 MG TAB PO PRN ×2 (03:52→18:41)
[2021-05-10 05:13] LABS: Hemoglobin 8.8 gm/dl (11.8-15.2); Mean Corpuscular HGB Conc 33 % (32-34); Mean Corpuscular Volume 94 fl (84-94); Platelet Count 324 K/mm3 (140-440); Red Blood Count 2.87 M/mm3 (3.65-5.03); Red Cell Distribution Width 15.9 % (13.2-15.2)
[2021-05-10 05:34] LABS: C-Reactive Protein 6.8 mg/dL (0.00-1.30); Calcium 8.7 mg/dL (8.4-10.2)
--- NOTE | 2021-05-10 06:11 | XRay Report ---
CHEST 1 VIEW 05/10/2021 5:02 AM INDICATION / CLINICAL INFORMATION: follow up respiratory failure. COMPARISON: 05/09/2021 FINDINGS: SUPPORT DEVICES: NG tube extends within the stomach HEART / MEDIASTINUM: No significant abnormality. LUNGS / PLEURA: No significant change No pneumothorax. Signer Name: Master Cantu MD Signed: 05/10/2021 6:06 AM Workstation Name: [id number]
[2021-05-10 08:14] LABS: ABG HCO3 23.2 mmol/L (20.0-26.0); ABG Methemoglobin 0.6 % (0.0-1.5); ABG Oxygen Saturation 98.3 % (95.0-99.0); ABG PCO2 32.5 mm Hg; ABG PH 7.473 pH Units (7.350-7.450); ABG PO2 114.6 mm Hg (80.0-90.0)
[2021-05-10] MEDS: hydrALAZINE 25 MG TAB PO SCH ×3 (08:42→21:31)
[2021-05-10] MEDS: dexAMETHasone 4 MG/ML VIAL IV SCH (09:44)
[2021-05-10] MEDS: FAMOTIDINE 20 MG/2 ML INJ IV SCH ×2 (09:44→21:30)
[2021-05-10] MEDS: QUEtiapine 200 MG TAB PO SCH ×2 (09:44→21:31)
[2021-05-10] MEDS: METOPROLOL TARTRATE 50 MG TAB PO SCH (09:44)
[2021-05-10] MEDS: SENNOSIDES/DOCUSATE SODIUM 8.6/50 MG TAB FEEDTUBE SCH ×2 (09:45→21:30)
[2021-05-10] MEDS: HEPARIN 5,000 UNIT/1 ML VIAL SUB-Q SCH ×2 (09:45→21:30)
[2021-05-10] MEDS: ASPIRIN 81 MG TAB CHEW PO SCH (09:45)
[2021-05-10] MEDS: LORazepam 2 MG/ML VIAL IV PRN (10:03)
--- NOTE | 2021-05-10 11:03 | Progress Note ---
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 UOP and lytes are stable. Creatinine stable today at 2.3 * Continue IVF as tolerated to maintain euvolemia, note non-oliguric urine output * Serum sodium improving 151->148, continue IVF, free water flushes with TFs * Await pending serologies and urine lytes- ANCA negative, AUDRA negative, C4 WNL. C3 mildly low at 72, no change to management for now. Urine protein/creatinine pending. * Renal ultrasound reviewed - will need follow up CT once stable * Continue antiHTN medications * Cardiology recommendations noted * Dose medications for renal function * Avoid potential nephrotoxins * Strict I/O Subjective Date of service: 05/10/21 Principal diagnosis: AHRF; COVID-19 infection; NSTEMI; YE; HFrEF (35-40%); Polysubstance abuse Interval history: Patient remains intubated. Chart, vitals, labs reviewed. Objective - Exam Narrative Exam: Direct examination deferred in setting of COVID-19 pandemic. Primary team exam reviewed in detail - Vital Signs Vital signs: Vital Signs - 12hr 05/09/21 05/09/21 05/09/21 23:01 23:05 23:15 Temperature Pulse Rate 142 H 147 H 139 H Pulse Rate [ From Monitor] Pulse Rate [ Left Radial] Pulse Rate [ Right Radial] Respiratory 20 Rate Blood Pressure 108/84 115/80 115/80 O2 Sat by Pulse 96 99 Oximetry 05/09/21 05/09/21 05/10/21 23:31 23:43 00:00 Temperature 101.3 F H Pulse Rate 138 H 144 H 148 H Pulse Rate [ From Monitor] Pulse Rate [ Left Radial] Pulse Rate [ Right Radial] Respiratory 24 21 22 Rate Blood Pressure 115/80 126/84 122/95 O2 Sat by Pulse 99 99 98 Oximetry 05/10/21 05/10/21 05/10/21 00:30 01:00 01:30 Temperature Pulse Rate 79 80 78 Pulse Rate [ From Monitor] Pulse Rate [ Left Radial] Pulse Rate [ Right Radial] Respiratory 22 22 22 Rate Blood Pressure 123/86 125/88 118/81 O2 Sat by Pulse 97 99 98 Oximetry 05/10/21 05/10/21 05/10/21 02:00 02:30 03:00 Temperature Pulse Rate 78 79 79 Pulse Rate [ 98 H From Monitor] Pulse Rate [ 98 H Left Radial] Pulse Rate [ 98 H Right Radial] Respiratory 21 24 22 Rate Blood Pressure 119/85 124/85 128/87 O2 Sat by Pulse 99 98 98 Oximetry 05/10/21 05/10/21 05/10/21 03:16 03:30 03:41 Temperature 102.3 F H Pulse Rate 76 75 Pulse Rate [ From Monitor] Pulse Rate [ Left Radial] Pulse Rate [ Right Radial] Respiratory 25 H Rate Blood Pressure 127/83 128/87 O2 Sat by Pulse 99 97 Oximetry 05/10/21 05/10/21 05/10/21 04:00 04:30 05:00 Temperature Pulse Rate 80 78 79 Pulse Rate [ From Monitor] Pulse Rate [ Left Radial] Pulse Rate [ Right Radial] Respiratory 22 24 26 H Rate Blood Pressure 122/76 117/79 123/84 O2 Sat by Pulse 98 98 98 Oximetry 05/10/21 05/10/21 05/10/21 05:30 06:00 06:30 Temperature Pulse Rate 80 78 78 Pulse Rate [ 98 H From Monitor] Pulse Rate [ 98 H Left Radial] Pulse Rate [ 98 H Right Radial] Respiratory 22 25 H 26 H Rate Blood Pressure 127/89 131/90 134/91 O2 Sat by Pulse 99 99 98 Oximetry 05/10/21 05/10/21 05/10/21 07:00 07:30 07:55 Temperature Pulse Rate 81 87 82 Pulse Rate [ From Monitor] Pulse Rate [ Left Radial] Pulse Rate [ Right Radial] Respiratory 26 H 24 Rate Blood Pressure 141/92 148/91 144/97 O2 Sat by Pulse 99 99 100 Oximetry 05/10/21 05/10/21 05/10/21 08:42 09:31 09:44 Temperature Pulse Rate 89 109 H Pulse Rate [ 87 From Monitor] Pulse Rate [ 87 Left Radial] Pulse Rate [ 87 Right Radial] Respiratory 17 Rate Blood Pressure 148/98 143/101 O2 Sat by Pulse 99 Oximetry - Lab 05/10/21 04:57 05/10/21 04:57 Most recent lab results ABG pH 7.473 pH Units (7.350-7.450) H 05/10/21 08:04 ABG pCO2 32.5 mm Hg 05/10/21 08:04 ABG pO2 114.6 mm Hg (80.0-90.0) H 05/10/21 08:04 ABG HCO3 23.2 mmol/L (20.0-26.0) 05/10/21 08:04 ABG O2 Saturation 98.3 % (95.0-99.0) 05/10/21 08:04 Calcium 8.7 mg/dL (8.4-10.2) 05/10/21 04:57 Magnesium 2.30 mg/dL (1.7-2.3) 05/10/21 04:57 Medications & Allergies - Medications Allergies/Adverse Reactions: Allergies No Known Allergies Allergy (Verified 05/08/21 07:47) Home Medications: Home Medications Medication Instructions Recorded Confirmed Last Taken Type Cefpodoxime Proxetil 200 mg PO Q12H #10 tablet 09/11/20 Unknown Rx Famotidine [Pepcid] 20 mg PO BID #30 tablet 04/13/21 Unknown Rx Losartan [Cozaar] 100 mg PO QDAY #60 tablet 04/13/21 Unknown Rx Metoprolol Xl [Metoprolol 25 mg PO QDAY #30 tablet 04/13/21 Unknown Rx SUCCINATE ER TAB] NIFEdipine XL [Procardia Xl] 60 mg PO Q12HR #60 tablet 04/13/21 Unknown Rx hydrALAZINE [Apresoline TAB] 50 mg PO Q8HR #180 tablet 04/13/21 Unknown Rx Active Medications: Generic Name Dose Route Start Last Admin Trade Name Fredrickq PRN Reason Stop Dose Admin Acetaminophen 650 mg 05/04/21 12:34 05/10/21 03:52 Acetaminophen 325 Mg Tab PO 650 mg Q4H PRN Administration Pain MILD(1-3)/Fever >100.5/MARIA Acetaminophen 650 mg 05/07/21 16:00 05/07/21 15:54 Acetaminophen 650 Mg Rect Supp [place] 650 mg Q4H PRN Administration Pain, Mild (1-3) Aspirin 81 mg 05/06/21 14:00 05/10/21 09:45 Aspirin 81 Mg Tab Chew PO 81 mg QDAY RISHI Administration Atorvastatin Calcium 40 mg 05/09/21 22:00 05/09/21 21:59 Atorvastatin 40 Mg Tab FEEDTUBE 40 mg QHS RISHI Administration Dexamethasone 8 mg 05/08/21 12:00 05/10/21 09:44 Dexamethasone 4 Mg/Ml Vial IV 05/17/21 10:01 8 mg Q24HR RISHI Administration Dextrose 0 ml 05/09/21 10:49 Dextrose 10% *Hypoglycemia IV PRN PRN Hypoglycemia Famotidine 10 mg 05/06/21 11:30 05/10/21 09:44 Famotidine 20 Mg/2 Ml Inj IV 10 mg BID RISHI Administration Fentanyl 50 mcg 05/05/21 15:21 Fentanyl 100 Mcg/2 Ml Inj IV Q10MIN PRN ANALGESIA Haloperidol Lactate 5 mg 05/09/21 18:32 05/09/21 21:56 Haloperidol Lactate 5 Mg/1 Ml Inj IV 5 mg Q6H PRN Administration Agitation Heparin Sodium (Porcine) 5,000 unit 05/06/21 22:00 05/10/21 09:45 Heparin 5,000 Unit/1 Ml Vial SUB-Q 5,000 unit Q12HR RISHI Administration Hydralazine HCl 50 mg 05/04/21 14:00 05/10/21 08:42 Hydralazine 25 Mg Tab PO 50 mg Q8HR RISHI Administration Hydralazine HCl 10 mg 05/07/21 16:16 05/09/21 17:35 Hydralazine 20 Mg/1 Ml Inj IV 10 mg Q2H PRN Administration Blood Pressure Hydrophilic Ointment 1 applic 05/05/21 15:21 Lip Therapy Vaseline TP Q2HR PRN Dry Lips Fentanyl Citrate 2,000 mcg in 100 mls @ 4.082 mls/hr 05/05/21 16:00 05/09/21 19:22 Fentanyl Drip Premix IV 0 mcg/kg/hr TITR RISHI 0 mls/hr Titration Protocol 1 MCG/KG/HR Propofol 1,000 mg in 100 mls @ 2.449 mls/hr 05/05/21 16:00 05/09/21 06:16 Diprivan 10 Mg/Ml IV 20 mcg/kg/min TITR RISHI 9.798 mls/hr Administration Protocol 5 MCG/KG/MIN Sodium Chloride 1,000 mls @ 75 mls/hr 05/07/21 14:00 05/10/21 02:31 Nacl 0.45% 1000 Ml IV 75 mls/hr DIRECT RISHI Administration Insulin Human Lispro 0 unit 05/10/21 09:40 Insulin Lispro 100 Unit/Ml SUB-Q Q6HR PRN Hyperglycemia Protocol Metoprolol Tartrate 50 mg 05/10/21 14:00 Metoprolol Tartrate 50 Mg Tab PO TID RISHI Multi-Ingred Cream/Lotion/Oil/Oint 1 applic 05/05/21 15:21 Mineral Oil/Petrolatum, White Ophth Oint 3.5 Gm OU Q4HR PRN Dry Eye(s) Ondansetron HCl 4 mg 05/04/21 12:34 05/04/21 21:51 Ondansetron 4 Mg/2 Ml Inj IV 4 mg Q8H PRN Administration Nausea And Vomiting Quetiapine Fumarate 200 mg 05/09/21 22:00 05/10/21 09:44 Quetiapine 200 Mg Tab PO 200 mg BID RISHI Administration Senna/Docusate Sodium 1 tab 05/05/21 22:00 05/10/21 09:45 Sennosides/Docusate Sodium 8.6/50 Mg Tab FEEDTUBE 1 tab BID RISHI Administration Sodium Chloride 10 ml 05/04/21 22:00 05/10/21 09:46 Sodium Chloride 0.9% 10 Ml Flush Syringe IV Not Given BID RISHI Sodium Chloride 10 ml 05/04/21 12:34 05/06/21 13:59 Sodium Chloride 0.9% 10 Ml Flush Syringe IV 10 ml PRN PRN Administration LINE FLUSH Sodium Chloride 10 ml 05/09/21 09:46 Sodium Chloride 0.9% 50 Ml Ivpb IV PRN PRN FLUSH
[2021-05-10] MEDS: HALOPERIDOL LACTATE 5 MG/1 ML INJ IV PRN (11:10)
--- NOTE | 2021-05-10 13:08 | Progress Note ---
Assessment and Plan Acute hypoxic resp failure on MVS COVID positive NSTEMI Acute kidney injury Cardiomyopathy EF 35-40% History of hepatitis C Elevated D-dimer. Low probability for PE seen on VQ scan Tobacco abuse Polysubstance abusepatient with positive methamphetamines and has a history of cocaine use Anemia - increased Seroquel to 300 mg p.o. bid - use fentanyl for sedation - resume SBT as tolerated - ABG before resting tonight if tolerates - continue to adjust anxiolytics / CIWA protocol - follow cultures and address - Procalcitonin level unremarkable - reduced set rate to 12/min - continue care as below otherwise; - Daily SAT and SBT assessment as tolerated - continue to wean supplemental oxygen for target O2 sat's > 90% acutely - VAP bundle addressed - continue lung protective strategies - continue bronchodilators with pulmonary hygiene per RT - wean per pulmonary driven protocols otherwise - avoid nephrotoxins, renally dose all medications - continue accuchecks with glycemic control per SSI (While critically ill target blood glucose of 140-180 mg/dL; avoid hypoglycemia) - sedation prn for target RASS 0 to -1 - continue to avoid benzodiazepine's, reduce the possibility of delirium - prn analgesia per CPOT score - Maintenance of sleep-wake cycle, avoid delirium - continue enteral nutritional support at goal rate as tolerated - G.I. & VTE prophylaxis - PT/OT/ROM exercises - continue mobility protocols for pressure ulcer prophylaxis - Monitor hemodynamics closely - continue other care per attending / other consultants - discharge planning ongoing concurrently COVID SPECIFIC INTERVENTIONS - Appears to have incidental COVID infection- Remdesivir not administered secondary to renal failure - continue systemic steroids for severe COVID-19 infection empirically (Dexamethasone) - follow repeat COVID tests results - zinc and vitamin C supplementation - Monitor inflammatory markers per facility protocol - ferritin, Ddimer, CRP - therapeutic anticoagulation per system Protocol based on d-dimer and clinical considerations (on therapeutic heparin for NSTEMI) - Continue contact and airborne isolation .... Re-evaluate in am & prn CONDITION: CRITICAL PROGNOSIS: GUARDED CODE STATUS: FULL CODE The high probability of a clinically significant, sudden or life-threatening deterioration of the [respiratory, cardiovascular & neurologic] system(s) required my full and direct attention, intervention and personal management. The aggregate critical care time was [32] minutes without overlap. Time includes spent on; [x] Data Review and interpretation [x] Patient assessment and monitoring of vital signs [x] Documentation [x] Medication orders and management Subjective Date of service: 05/10/21 Principal diagnosis: AHRF; COVID-19 infection; NSTEMI; YE; HFrEF (35-40%); Polysubstance abuse Interval history: Patient is seen today for: Acute hypoxemic Resp failure; COVID-19 infection; NSTEMI; YE; HFrEF (35-40%); Polysubstance abuse; Anemia Seen and examined at bedside; 24hour events reviewed; nursing and respiratory care staff consulted; no adverse overnight events reported to me; resting in bed; remains on MVS; in full blown withdrawal overnight and no weaning done yet today; no emesis or overt aspiration reported Objective Vital Signs - 12hr 05/10/21 05/10/21 05/10/21 01:30 02:00 02:30 Temperature Pulse Rate 78 78 79 Pulse Rate [ 98 H From Monitor] Pulse Rate [ 98 H Left Radial] Pulse Rate [ 98 H Right Radial] Respiratory 22 21 24 Rate Blood Pressure 118/81 119/85 124/85 O2 Sat by Pulse 98 99 98 Oximetry 05/10/21 05/10/21 05/10/21 03:00 03:16 03:30 Temperature Pulse Rate 79 76 75 Pulse Rate [ From Monitor] Pulse Rate [ Left Radial] Pulse Rate [ Right Radial] Respiratory 22 25 H Rate Blood Pressure 128/87 127/83 128/87 O2 Sat by Pulse 98 99 97 Oximetry 05/10/21 05/10/21 05/10/21 03:41 04:00 04:30 Temperature 102.3 F H Pulse Rate 80 78 Pulse Rate [ From Monitor] Pulse Rate [ Left Radial] Pulse Rate [ Right Radial] Respiratory 22 24 Rate Blood Pressure 122/76 117/79 O2 Sat by Pulse 98 98 Oximetry 05/10/21 05/10/21 05/10/21 05:00 05:30 06:00 Temperature Pulse Rate 79 80 78 Pulse Rate [ 98 H From Monitor] Pulse Rate [ 98 H Left Radial] Pulse Rate [ 98 H Right Radial] Respiratory 26 H 22 25 H Rate Blood Pressure 123/84 127/89 131/90 O2 Sat by Pulse 98 99 99 Oximetry 05/10/21 05/10/21 05/10/21 06:30 07:00 07:30 Temperature Pulse Rate 78 81 87 Pulse Rate [ From Monitor] Pulse Rate [ Left Radial] Pulse Rate [ Right Radial] Respiratory 26 H 26 H 24 Rate Blood Pressure 134/91 141/92 148/91 O2 Sat by Pulse 98 99 99 Oximetry 05/10/21 05/10/21 05/10/21 07:55 08:00 08:30 Temperature 100.3 F H Pulse Rate 82 84 82 Pulse Rate [ From Monitor] Pulse Rate [ Left Radial] Pulse Rate [ Right Radial] Respiratory 19 26 H Rate Blood Pressure 144/97 148/99 148/98 O2 Sat by Pulse 100 98 99 Oximetry 05/10/21 05/10/21 05/10/21 08:42 09:00 09:30 Temperature Pulse Rate 89 85 97 H Pulse Rate [ From Monitor] Pulse Rate [ Left Radial] Pulse Rate [ Right Radial] Respiratory 28 H 23 Rate Blood Pressure 148/98 140/92 143/101 O2 Sat by Pulse 100 99 Oximetry 05/10/21 05/10/21 05/10/21 09:31 09:44 10:00 Temperature Pulse Rate 109 H 103 H Pulse Rate [ 87 From Monitor] Pulse Rate [ 87 Left Radial] Pulse Rate [ 87 Right Radial] Respiratory 17 Rate Blood Pressure 143/101 O2 Sat by Pulse 99 Oximetry 05/10/21 05/10/21 05/10/21 10:01 10:30 11:00 Temperature Pulse Rate 111 H 114 H 96 H Pulse Rate [ From Monitor] Pulse Rate [ Left Radial] Pulse Rate [ Right Radial] Respiratory 31 H 32 H 33 H Rate Blood Pressure 153/105 166/109 161/109 O2 Sat by Pulse 97 99 99 Oximetry 05/10/21 12:51 Temperature 100.5 F H Pulse Rate Pulse Rate [ From Monitor] Pulse Rate [ Left Radial] Pulse Rate [ Right Radial] Respiratory Rate Blood Pressure O2 Sat by Pulse Oximetry Constitutional: no acute distress (sedate), other (orally intuabted, sedated; normal respiratory effort at rest) Eyes: non-icteric ENT: oropharynx moist Neck: supple, no lymphadenopathy, no JVD Effort: normal Ascultation: Bilateral: clear, diminished breath sounds Percussion: Bilateral: not dull Cardiovascular: irregular rhythm, other (S1,S2) Gastrointestinal: normoactive bowel sounds, soft, non-tender, non-distended Extremities: no cyanosis, no edema, pulses normal Neurologic: non-focal exam, pupils equal and round, CN II-XII normal, motor strength normal and Psychiatric: other (sedated) CBC and BMP: 05/11/21 06:53 05/11/21 06:53 ABG, PT/INR, D-dimer: ABG ABG pH 7.473 pH Units (7.350-7.450) H 05/10/21 08:04 ABG pCO2 32.5 mm Hg 05/10/21 08:04 ABG pO2 114.6 mm Hg (80.0-90.0) H 05/10/21 08:04 ABG O2 Saturation 98.3 % (95.0-99.0) 05/10/21 08:04 PT/INR, D-dimer PT 15.1 Sec. (12.2-14.9) H 05/04/21 07:25 INR 1.07 (0.87-1.13) 05/04/21 07:25 D-Dimer 1546.78 ng/mlDDU (0-234) H 05/10/21 04:57 Abnormal lab findings: Abnormal Labs 05/04/21 05/04/21 05/04/21 07:25 07:25 07:25 WBC 12.9 H RBC 3.04 L Hgb 9.5 L Hct 28.4 L MCV RDW 15.4 H Lymph % (Auto) 11.4 L [place] % (Auto) 10.1 H Lymph # (Auto) [place] # (Auto) 1.3 H Seg Neutrophils % 78.0 H Seg Neutrophils # 10.0 H PT 15.1 H D-Dimer Heparin Anti-Xa Level ABG pH ABG pO2 ABG Base Excess ABG Hemoglobin Sodium 135 L Potassium Chloride Carbon Dioxide BUN 65 H Creatinine 3.4 H Glucose 118 H POC Glucose Ferritin Total Bilirubin 1.50 H AST 519 H ALT 475 H Lactate Dehydrogenase Total Creatine Kinase Troponin T 1.300 H* C-Reactive Protein Albumin Urine WBC (Auto) Complement C3 Coronavirus (PCR) Hepatitis C Antibody 05/04/21 05/04/21 05/04/21 07:25 08:42 08:42 WBC RBC Hgb Hct MCV RDW Lymph % (Auto) [place] % (Auto) Lymph # (Auto) [place] # (Auto) Seg Neutrophils % Seg Neutrophils # PT D-Dimer 579.49 H Heparin Anti-Xa Level ABG pH ABG pO2 ABG Base Excess ABG Hemoglobin Sodium Potassium Chloride Carbon Dioxide BUN Creatinine Glucose POC Glucose Ferritin Total Bilirubin AST ALT Lactate Dehydrogenase Total Creatine Kinase 406 H Troponin T 1.230 H* C-Reactive Protein Albumin Urine WBC (Auto) Complement C3 Coronavirus (PCR) Hepatitis C Antibody 05/04/21 05/04/21 05/04/21 10:13 13:34 18:14 WBC RBC Hgb 8.8 L Hct 26.6 L MCV RDW Lymph % (Auto) [place] % (Auto) Lymph # (Auto) [place] # (Auto) Seg Neutrophils % Seg Neutrophils # PT D-Dimer Heparin Anti-Xa Level < 0.10 L ABG pH ABG pO2 ABG Base Excess ABG Hemoglobin Sodium Potassium Chloride Carbon Dioxide BUN Creatinine Glucose POC Glucose Ferritin Total Bilirubin AST ALT Lactate Dehydrogenase Total Creatine Kinase Troponin T 1.400 H* C-Reactive Protein Albumin Urine WBC (Auto) Complement C3 Coronavirus (PCR) Hepatitis C Antibody 05/05/21 05/05/21 05/05/21 03:40 03:40 03:40 WBC RBC Hgb Hct MCV RDW Lymph % (Auto) [place] % (Auto) Lymph # (Auto) [place] # (Auto) Seg Neutrophils % Seg Neutrophils # PT D-Dimer Heparin Anti-Xa Level 0.11 L ABG pH ABG pO2 ABG Base Excess ABG Hemoglobin Sodium Potassium 3.3 L Chloride Carbon Dioxide BUN 59 H Creatinine 2.6 H Glucose 139 H POC Glucose Ferritin Total Bilirubin AST ALT Lactate Dehydrogenase Total Creatine Kinase Troponin T C-Reactive Protein Albumin Urine WBC (Auto) Complement C3 Coronavirus (PCR) Hepatitis C Antibody Reactive A 05/05/21 05/05/21 05/05/21 03:40 08:30 11:28 WBC RBC Hgb Hct MCV RDW Lymph % (Auto) [place] % (Auto) Lymph # (Auto) [place] # (Auto) Seg Neutrophils % Seg Neutrophils # PT D-Dimer Heparin Anti-Xa Level 0.10 L ABG pH ABG pO2 ABG Base Excess ABG Hemoglobin Sodium Potassium Chloride Carbon Dioxide BUN Creatinine Glucose POC Glucose Ferritin Total Bilirubin AST ALT Lactate Dehydrogenase Total Creatine Kinase Troponin T C-Reactive Protein Albumin Urine WBC (Auto) Complement C3 72 L Coronavirus (PCR) Positive A Hepatitis C Antibody 05/05/21 05/05/21 05/06/21 17:00 19:51 03:47 WBC RBC Hgb 9.0 L Hct 27.8 L MCV RDW Lymph % (Auto) [place] % (Auto) Lymph # (Auto) [place] # (Auto) Seg Neutrophils % Seg Neutrophils # PT D-Dimer Heparin Anti-Xa Level 0.22 L ABG pH 7.304 L ABG pO2 140.8 H ABG Base Excess -2.1 L ABG Hemoglobin 10.2 L Sodium Potassium Chloride Carbon Dioxide BUN Creatinine Glucose POC Glucose Ferritin Total Bilirubin AST ALT Lactate Dehydrogenase Total Creatine Kinase Troponin T C-Reactive Protein Albumin Urine WBC (Auto) Complement C3 Coronavirus (PCR) Hepatitis C Antibody 05/06/21 05/06/21 05/07/21 06:15 17:53 00:07 WBC RBC Hgb Hct MCV RDW Lymph % (Auto) [place] % (Auto) Lymph # (Auto) [place] # (Auto) Seg Neutrophils % Seg Neutrophils # PT D-Dimer Heparin Anti-Xa Level 0.10 L < 0.10 L ABG pH ABG pO2 143.5 H ABG Base Excess -2.4 L ABG Hemoglobin 6.9 L Sodium Potassium Chloride Carbon Dioxide BUN Creatinine Glucose POC Glucose Ferritin Total Bilirubin AST ALT Lactate Dehydrogenase Total Creatine Kinase Troponin T C-Reactive Protein Albumin Urine WBC (Auto) Complement C3 Coronavirus (PCR) Hepatitis C Antibody 05/07/21 05/07/21 05/07/21 03:22 03:45 07:44 WBC RBC Hgb Hct MCV RDW Lymph % (Auto) [place] % (Auto) Lymph # (Auto) [place] # (Auto) Seg Neutrophils % Seg Neutrophils # PT D-Dimer Heparin Anti-Xa Level < 0.10 L ABG pH ABG pO2 104.3 H ABG Base Excess -2.6 L ABG Hemoglobin 9.1 L Sodium Potassium Chloride 107.1 H Carbon Dioxide 20 L BUN 56 H Creatinine 2.9 H Glucose POC Glucose Ferritin Total Bilirubin AST ALT Lactate Dehydrogenase Total Creatine Kinase Troponin T C-Reactive Protein Albumin Urine WBC (Auto) Complement C3 Coronavirus (PCR) Hepatitis C Antibody 05/07/21 05/07/21 05/08/21 16:28 22:41 03:25 WBC RBC Hgb Hct MCV RDW Lymph % (Auto) [place] % (Auto) Lymph # (Auto) [place] # (Auto) Seg Neutrophils % Seg Neutrophils # PT D-Dimer Heparin Anti-Xa Level 0.10 L < 0.10 L ABG pH ABG pO2 139.0 H ABG Base Excess ABG Hemoglobin 8.8 L Sodium Potassium Chloride Carbon Dioxide BUN Creatinine Glucose POC Glucose Ferritin Total Bilirubin AST ALT Lactate Dehydrogenase Total Creatine Kinase Troponin T C-Reactive Protein Albumin Urine WBC (Auto) Complement C3 Coronavirus (PCR) Hepatitis C Antibody 05/08/21 05/08/21 05/09/21 04:34 07:30 04:10 WBC 12.4 H RBC 3.02 L Hgb 9.5 L Hct 29.2 L MCV 97 H RDW 16.7 H Lymph % (Auto) 8.1 L [place] % (Auto) 11.0 H Lymph # (Auto) 1.0 L [place] # (Auto) 1.4 H Seg Neutrophils % 80.1 H Seg Neutrophils # 9.9 H PT D-Dimer Heparin Anti-Xa Level ABG pH ABG pO2 161.6 H ABG Base Excess ABG Hemoglobin 8.3 L Sodium Potassium Chloride 110.5 H Carbon Dioxide BUN 59 H Creatinine 2.8 H Glucose 103 H POC Glucose Ferritin Total Bilirubin AST ALT 327 H Lactate Dehydrogenase Total Creatine Kinase Troponin T C-Reactive Protein Albumin 3.1 L Urine WBC (Auto) Complement C3 Coronavirus (PCR) Hepatitis C Antibody 05/09/21 05/09/21 05/09/21 04:20 04:20 09:48 WBC 11.7 H RBC 2.79 L Hgb 8.7 L Hct 26.5 L MCV 95 H RDW 16.2 H Lymph % (Auto) [place] % (Auto) Lymph # (Auto) [place] # (Auto) Seg Neutrophils % Seg Neutrophils # PT D-Dimer Heparin Anti-Xa Level ABG pH ABG pO2 ABG Base Excess ABG Hemoglobin Sodium 151 H Potassium Chloride 114.5 H Carbon Dioxide 21 L BUN 57 H Creatinine 2.4 H Glucose POC Glucose Ferritin Total Bilirubin AST ALT 210 H Lactate Dehydrogenase Total Creatine Kinase Troponin T C-Reactive Protein 8.70 H Albumin 2.9 L Urine WBC (Auto) Complement C3 Coronavirus (PCR) Hepatitis C Antibody 05/09/21 05/09/21 05/09/21 09:48 13:22 15:20 WBC 11.6 H RBC 3.00 L Hgb 9.0 L Hct 28.4 L MCV RDW 15.9 H Lymph % (Auto) 5.9 L [place] % (Auto) 8.9 H Lymph # (Auto) 0.7 L [place] # (Auto) 1.0 H Seg Neutrophils % 84.3 H Seg Neutrophils # 9.8 H PT D-Dimer Heparin Anti-Xa Level ABG pH ABG pO2 102.0 H ABG Base Excess -2.8 L ABG Hemoglobin 9.0 L Sodium Potassium Chloride Carbon Dioxide BUN Creatinine Glucose POC Glucose Ferritin Total Bilirubin AST ALT Lactate Dehydrogenase Total Creatine Kinase Troponin T C-Reactive Protein Albumin Urine WBC (Auto) 25.0 H Complement C3 Coronavirus (PCR) Hepatitis C Antibody 05/09/21 05/10/21 05/10/21 18:16 04:57 04:57 WBC RBC 2.87 L Hgb 8.8 L Hct 27.0 L MCV RDW 15.9 H Lymph % (Auto) [place] % (Auto) Lymph # (Auto) [place] # (Auto) Seg Neutrophils % Seg Neutrophils # PT D-Dimer Heparin Anti-Xa Level ABG pH ABG pO2 ABG Base Excess ABG Hemoglobin Sodium 148 H Potassium Chloride 114.9 H Carbon Dioxide 21 L BUN 57 H Creatinine 2.3 H Glucose 157 H POC Glucose 130 H Ferritin Total Bilirubin AST ALT Lactate Dehydrogenase 289 H Total Creatine Kinase Troponin T C-Reactive Protein 6.80 H Albumin Urine WBC (Auto) Complement C3 Coronavirus (PCR) Hepatitis C Antibody 05/10/21 05/10/21 05/10/21 04:57 04:57 05:09 WBC RBC Hgb Hct MCV RDW Lymph % (Auto) [place] % (Auto) Lymph # (Auto) [place] # (Auto) Seg Neutrophils % Seg Neutrophils # PT D-Dimer 1546.78 H Heparin Anti-Xa Level ABG pH ABG pO2 ABG Base Excess ABG Hemoglobin Sodium Potassium Chloride Carbon Dioxide BUN Creatinine Glucose POC Glucose 152 H Ferritin 888.2 H Total Bilirubin AST ALT Lactate Dehydrogenase Total Creatine Kinase Troponin T C-Reactive Protein Albumin Urine WBC (Auto) Complement C3 Coronavirus (PCR) Hepatitis C Antibody 05/10/21 08:04 WBC RBC Hgb Hct MCV RDW Lymph % (Auto) [place] % (Auto) Lymph # (Auto) [place] # (Auto) Seg Neutrophils % Seg Neutrophils # PT D-Dimer Heparin Anti-Xa Level ABG pH 7.473 H ABG pO2 114.6 H ABG Base Excess ABG Hemoglobin 9.5 L Sodium Potassium Chloride Carbon Dioxide BUN Creatinine Glucose POC Glucose Ferritin Total Bilirubin AST ALT Lactate Dehydrogenase Total Creatine Kinase Troponin T C-Reactive Protein Albumin Urine WBC (Auto) Complement C3 Coronavirus (PCR) Hepatitis C Antibody Allied health notes reviewed: nursing
--- NOTE | 2021-05-10 13:10 | Progress Note ---
Assessment and Plan Patient is a 56-year-old male with a past medical history of hypertension, paroxysmal SVT, medical noncompliance, smoking, substance abuse who presented to the ED with a complaint of shortness of breath and dyspnea on exertion x1 month however with significantly worsening symptoms since yesterday. NSTEMI Hypertensive Emergency COVID-19 YE Hepatitis C SOB Medical noncompliance Polysubstance abuse-patient tested positive for methamphetamines Echo 05/04/2021-EF 35 to 40%. Moderate concentric LVH. Moderate global hypokinesis of left ventricle. Mild mitral regurgitation. Mild pulmonary hypertension. Echocardiogram reviewed (08/27/2020): LVEF is 50 to 55%. Mild to moderate concentric LVF. Severe diastolic dysfunction is present (restrictive filling). Right ventricle is mildly hypokinetic. RVSP is 48 mmHg. No valvular abnormalities. Plan: Continue statin therapy Continue medical management. Heparin subcu for DVT prophylaxis Patient had episode of A. fib RVR overnight patient was given Cardizem drip converted back to sinus rhythm. Stop Cardizem drip and increase to metoprolol tartrate 50 mg p.o. 3 times daily Anticoagulation not indicated due to transient episode of A. fib Patient seen in conjunction with Dr. Carpenter who agrees with this plan of care - Patient Problems (1) ARF (acute renal failure) Current Visit: Yes Status: Acute (2) Elevated d-dimer Current Visit: Yes Status: Acute (3) LFT elevation Current Visit: Yes Status: Acute (4) NSTEMI (non-ST elevated myocardial infarction) Current Visit: Yes Status: Acute (5) Polysubstance abuse Current Visit: Yes Status: Acute (6) SOB (shortness of breath) Current Visit: Yes Status: Acute (7) Hypertension Current Visit: Yes Status: Chronic (8) Noncompliance with medication regimen Current Visit: Yes Status: Chronic Subjective Date of service: 05/10/21 Principal diagnosis: AHRF; COVID-19 infection; NSTEMI; YE; HFrEF (35-40%); Polysubstance abuse Interval history: Patient remained intubated and sedated Patient had transient episode of A. fib with RVR overnight given Cardizem drip converted back to sinus rhythm currently sinus 90s to 100 Objective Vital Signs Temp Pulse Pulse Pulse Pulse Resp BP 05/10/21 12:51 100.5 F H 05/10/21 11:00 96 H 33 H 161/109 05/10/21 10:30 114 H 32 H 166/109 05/10/21 10:01 111 H 31 H 153/105 05/10/21 10:00 103 H 05/10/21 09:44 109 H 143/101 05/10/21 09:31 87 87 87 17 05/10/21 09:30 97 H 23 143/101 05/10/21 09:00 85 28 H 140/92 05/10/21 08:42 89 148/98 05/10/21 08:30 82 26 H 148/98 05/10/21 08:00 100.3 F H 84 19 148/99 05/10/21 07:55 82 144/97 05/10/21 07:30 87 24 148/91 05/10/21 07:00 81 26 H 141/92 05/10/21 06:30 78 26 H 134/91 05/10/21 06:00 78 98 H 98 H 98 H 25 H 131/90 05/10/21 05:30 80 22 127/89 05/10/21 05:00 79 26 H 123/84 05/10/21 04:30 78 24 117/79 05/10/21 04:00 80 22 122/76 05/10/21 03:41 102.3 F H 05/10/21 03:30 75 25 H 128/87 05/10/21 03:16 76 127/83 05/10/21 03:00 79 22 128/87 05/10/21 02:30 79 24 124/85 05/10/21 02:00 78 98 H 98 H 98 H 21 119/85 05/10/21 01:30 78 22 118/81 05/10/21 01:00 80 22 125/88 05/10/21 00:30 79 22 123/86 05/10/21 00:00 101.3 F H 148 H 22 122/95 05/09/21 23:43 144 H 21 126/84 05/09/21 23:31 138 H 24 115/80 05/09/21 23:15 139 H 115/80 05/09/21 23:05 147 H 115/80 05/09/21 23:01 142 H 20 108/84 05/09/21 22:38 170 H 108/84 05/09/21 22:31 165 H 20 158/107 05/09/21 22:00 145 H 98 H 98 H 98 H 17 158/107 05/09/21 21:59 97 H 153/98 05/09/21 21:55 121 H 153/98 05/09/21 21:31 99 H 10 L 153/98 05/09/21 21:00 98 H 21 153/98 05/09/21 20:31 101 H 20 151/91 05/09/21 20:00 100.9 F H 111 H 24 151/91 05/09/21 19:52 113 H 148/97 05/09/21 19:31 96 H 19 148/97 05/09/21 19:00 94 H 18 148/97 05/09/21 18:31 100 H 22 157/98 05/09/21 18:00 99 H 98 H 98 H 98 H 16 157/98 05/09/21 17:35 101 H 165/108 05/09/21 17:31 85 16 166/108 05/09/21 17:00 88 15 166/108 05/09/21 16:39 103 H 28 H 152/94 05/09/21 16:31 95 H 16 152/94 05/09/21 16:00 97 H 17 152/94 05/09/21 15:31 87 21 165/102 05/09/21 15:00 82 15 165/102 05/09/21 14:57 87 163/98 05/09/21 14:31 84 15 163/98 05/09/21 14:01 83 17 163/98 05/09/21 14:00 111 H 81 81 81 14 05/09/21 13:31 88 15 133/83 Pulse Ox 05/10/21 12:51 05/10/21 11:00 99 05/10/21 10:30 99 05/10/21 10:01 97 05/10/21 10:00 05/10/21 09:44 05/10/21 09:31 99 05/10/21 09:30 99 05/10/21 09:00 100 05/10/21 08:42 05/10/21 08:30 99 05/10/21 08:00 98 05/10/21 07:55 100 05/10/21 07:30 99 05/10/21 07:00 99 05/10/21 06:30 98 05/10/21 06:00 99 05/10/21 05:30 99 05/10/21 05:00 98 05/10/21 04:30 98 05/10/21 04:00 98 05/10/21 03:41 05/10/21 03:30 97 05/10/21 03:16 99 05/10/21 03:00 98 05/10/21 02:30 98 05/10/21 02:00 99 05/10/21 01:30 98 05/10/21 01:00 99 05/10/21 00:30 97 05/10/21 00:00 98 05/09/21 23:43 99 05/09/21 23:31 99 05/09/21 23:15 99 05/09/21 23:05 05/09/21 23:01 96 05/09/21 22:38 05/09/21 22:31 98 05/09/21 22:00 99 05/09/21 21:59 05/09/21 21:55 05/09/21 21:31 99 05/09/21 21:00 98 05/09/21 20:31 98 05/09/21 20:00 97 05/09/21 19:52 99 05/09/21 19:31 98 05/09/21 19:00 05/09/21 18:31 05/09/21 18:00 99 05/09/21 17:35 05/09/21 17:31 100 05/09/21 17:00 98 05/09/21 16:39 98 05/09/21 16:31 98 05/09/21 16:00 97 05/09/21 15:31 99 05/09/21 15:00 98 05/09/21 14:57 05/09/21 14:31 99 05/09/21 14:01 99 05/09/21 14:00 99 05/09/21 13:31 99 - Physical Examination General: Other (intubated and sedated) HEENT: Positive: PERRL Neck: Positive: trachea midline Cardiac: Positive: Reg Rate and Rhythm Lungs: Positive: Decreased Breath Sounds Neuro: Positive: Other (sedated) Abdomen: Positive: Soft Skin: Negative: Rash, Suspicious Lesions, Ulceration Extremities: Absent: edema - Labs and Meds Cardiac Enzymes 05/10/21 Range/Units 04:57 Lactate Dehydrogenase 289 H (91-180) units/L Lipids 05/10/21 Range/Units 04:57 Triglycerides 144 (2-149) mg/dL CBC 05/10/21 Range/Units 04:57 WBC 9.5 (4.5-11.0) K/mm3 RBC 2.87 L (3.65-5.03) M/mm3 Hgb 8.8 L (11.8-15.2) gm/dl Hct 27.0 L (35.5-45.6) % Plt Count 324 (140-440) K/mm3 Comprehensive Metabolic Panel 05/10/21 Range/Units 04:57 Sodium 148 H (137-145) mmol/L Potassium 4.3 (3.6-5.0) mmol/L Chloride 114.9 H (98-107) mmol/L Carbon Dioxide 21 L (22-30) mmol/L BUN 57 H (9-20) mg/dL Creatinine 2.3 H (0.8-1.3) mg/dL Glucose 157 H (75-100) mg/dL Calcium 8.7 (8.4-10.2) mg/dL - Imaging and Cardiology EKG: report reviewed, image reviewed Echo: report reviewed - Telemetry EKG Rhythm: Sinus Rhythm - EKG Sinus rhythms and dysrhythmias: sinus rhythm Supraventricular dysrhythmia: atrial fibrillation Ventricular dysrhythmias: ventricular premature com Chamber hypertrophy or enlargement: left ventricular hypertro - Allied health notes Allied health notes reviewed: nursing
[2021-05-10] MEDS: METOPROLOL TARTRATE 50 MG TAB FEEDTUBE SCH ×2 (15:41→21:31)
--- NOTE | 2021-05-10 15:45 | Progress Note ---
Assessment and Plan Cultures: Blood culture no growth so far A/P: 56 yo M PMHx smoking, a fin, HTN, medication non-compliance #Severe COVID-19 pneumonia: Patient presented with a week of symptoms, chest x- ray with diffuse bilateral infiltrates, admission O2 sats decreased on room air. Inflammatory markers elevated #Acute hypoxemic respiratory failure: Likely secondary to COVID-19 infection. Currently on the vent #YE: Renally dose medications Recommendations: -Dexamethasone 6 mg IV/PO daily for 10 days -Not a candidate for remdesivir -Obtain q48-72h inflammatory markers - ferritin, Ddimer, CRP, LDH -Procal mildly elevated, though in the setting of YE. Started ceftriaxone 2g q24h for 2 days -Anticoagulation per hospital protocol -Proning as able Thank you for the consult, we will continue to follow. Roque Bacon MD [facility] ([facility]) O: [phone] F: [phone] Subjective Date of service: 05/10/21 Principal diagnosis: AHRF; COVID-19 infection; NSTEMI; YE; HFrEF (35-40%); Polysubstance abuse Interval history: Remains febrile, white count remains normal. Imaging personally reviewed: CXR: No signfiicant change. Objective - Exam Narrative Exam: Physical exam deferred to reduce risk of transmission of COVID-19. Please refer to primary team's note. - Constitutional Vitals: Vital Signs Temp Pulse Resp BP Pulse Ox 100.5 F H 84 27 H 153/103 100 05/10/21 12:51 05/10/21 14:00 05/10/21 14:00 05/10/21 14:00 05/10/21 14:00 Temperature -Last 24 Hours Temperature 100.5 F Temperature 100.3 F Temperature 102.3 F Temperature 101.3 F Temperature 100.9 F - Labs CBC & Chem 7: 05/10/21 04:57 05/10/21 04:57 Labs: Abnormal lab results 05/09/21 05/09/21 05/10/21 Range/Units 13:22 18:16 04:57 RBC 2.87 L (3.65-5.03) M/mm3 Hgb 8.8 L (11.8-15.2) gm/dl Hct 27.0 L (35.5-45.6) % RDW 15.9 H (13.2-15.2) % D-Dimer (0-234) ng/mlDDU ABG pH (7.350-7.450) pH Units ABG pO2 (80.0-90.0) mm Hg ABG Hemoglobin (14.0-18.0) gm/dl Sodium (137-145) mmol/L Chloride (98-107) mmol/L Carbon Dioxide (22-30) mmol/L BUN (9-20) mg/dL Creatinine (0.8-1.3) mg/dL Glucose (75-100) mg/dL POC Glucose 130 H (70-105) mg/dL Ferritin (30.0-300.0) ng/mL Lactate Dehydrogenase (91-180) units/L C-Reactive Protein (0.00-1.30) mg/dL Urine WBC (Auto) 25.0 H (0.0-6.0) /HPF 05/10/21 05/10/21 05/10/21 Range/Units 04:57 04:57 04:57 RBC (3.65-5.03) M/mm3 Hgb (11.8-15.2) gm/dl Hct (35.5-45.6) % RDW (13.2-15.2) % D-Dimer 1546.78 H (0-234) ng/mlDDU ABG pH (7.350-7.450) pH Units ABG pO2 (80.0-90.0) mm Hg ABG Hemoglobin (14.0-18.0) gm/dl Sodium 148 H (137-145) mmol/L Chloride 114.9 H (98-107) mmol/L Carbon Dioxide 21 L (22-30) mmol/L BUN 57 H (9-20) mg/dL Creatinine 2.3 H (0.8-1.3) mg/dL Glucose 157 H (75-100) mg/dL POC Glucose (70-105) mg/dL Ferritin 888.2 H (30.0-300.0) ng/mL Lactate Dehydrogenase 289 H (91-180) units/L C-Reactive Protein 6.80 H (0.00-1.30) mg/dL Urine WBC (Auto) (0.0-6.0) /HPF 05/10/21 05/10/21 05/10/21 Range/Units 05:09 08:04 13:07 RBC (3.65-5.03) M/mm3 Hgb (11.8-15.2) gm/dl Hct (35.5-45.6) % RDW (13.2-15.2) % D-Dimer (0-234) ng/mlDDU ABG pH 7.473 H (7.350-7.450) pH Units ABG pO2 114.6 H (80.0-90.0) mm Hg ABG Hemoglobin 9.5 L (14.0-18.0) gm/dl Sodium (137-145) mmol/L Chloride (98-107) mmol/L Carbon Dioxide (22-30) mmol/L BUN (9-20) mg/dL Creatinine (0.8-1.3) mg/dL Glucose (75-100) mg/dL POC Glucose 152 H 150 H (70-105) mg/dL Ferritin (30.0-300.0) ng/mL Lactate Dehydrogenase (91-180) units/L C-Reactive Protein (0.00-1.30) mg/dL Urine WBC (Auto) (0.0-6.0) /HPF
[2021-05-10] MEDS: cefTRIAXone/NS 2 GM/100 ML 2 GM/100 ML BAG IV SCH (18:41)
--- NOTE | 2021-05-10 19:01 | Progress Note ---
<DANIELVALENTIN HChalino - Last Filed: 05/10/21 18:57> Assessment and Plan Assessment and plan: This is a 56-year-old male with nicotine and cocaine abuse, atrial fibrillation, hypertension and chronic medication noncompliance complicated by homelessness admitted with acute hypoxic respiratory failure, COVID-19 pneumonia, green saminitis, NSTEMI, hypertensive emergency and acute kidney injury A/P Acute hypoxic respiratory failure -CCM consulted, appreciate recommendations -Intubated on 05/05 with 7.50 ETT at 20 over the lips in the ED -A.m. vent setting: Assist-control rate 20, tidal volume 450, PEEP 6, FiO2 30% -ABG and CXR noted -See RT notes for titration -PSV again today -VAP bundle -Continues SPO2 monitoring -Pulmonary perfusion study showed low probability of pulmonary embolism Severe COVID-19 pneumonia/leukocytosis -Infectious disease consulted, appreciate recommendation -COVID-19 PCR positive -Continue droplet/precautions -Not a candidate for remdesivir given acute kidney injury -Dexamethasone for 10 days -Anticoagulation per hospital protocol -Trend COVID-19 from 2 markers (ferritin, D-dimer, CRP, LDH) -Per ID: Given slightly elevated procalcitonin started on ceftriaxone for 2 days Acute kidney injury -Nephrology consulted, appreciate recommendations -IVF per nephrology -Avoid nephrotoxic medications -Renally dose medication -Strict intake and output -Urine lites pending -Renal ultrasound completed: 1.7 hyper echoic mass within the left upper pole -Monitor follow-up with CT once stable Hypernatremia (slowly improving), hyperchloremia, metabolic acidosis -MIVF with half-normal saline -Trend sodium -Free water flush Hypertensive emergency -Continue BB -Blood pressure monitor per protocol -Resume home antihypertensive regimen as tolerated Heart failure reduced EF, cardiomyopathy, NSTEMI, H/o atrial fibrillation -Continue beta-sylvia and aspirin -Resume statin therapy -Cardiology consulted, appreciate recommendations -Echo 05/04/2021-EF 35 to 40%. Moderate concentric LVH. Moderate global hypokinesis of left ventricle. Mild mitral regurgitation. Mild pulmonary hypertension. Echocardiogram reviewed (08/27/2020): LVEF is 50 to 55%. Mild to moderate concentric LVF. Severe diastolic dysfunction is present (restrictive filling). Right ventricle is mildly hypokinetic. RVSP is 48 mmHg. No valvular abnormalities. -S/p heparin ip for 24 hours -Patient had atrial fibrillation overnight on 05/10 and was treated with a Cardi zem drip -Beta-sylvia increased Polysubstance abuse, tobacco abuse -UDS positive for amphetamines -We will need cessation counseling when appropriate Transaminitis, h/o hepatitis C -Renal ultrasound showed incidental finding of cholelithiasis -Trend LFTs -Continue supportive management Anemia -Trend CBC -Transfuse for hemoglobin less than 7 DVT/ GI prophylaxis -Heparin subcu -PPI The high probability of a clinically significant, sudden or life threatening deterioration of the [cardio/resp] system(s) required my full and direct attention, intervention and personal management. The aggregate critical care time was [60] minutes. This time is in addition to time spent performing reporte d procedures but includes the following: [x] Data Review and interpretation [x] Patient assessment and monitoring of vital signs [x] Documentation [x] Medication orders and management Disposition Plan: ICU Total Time Spent with Patient (Minutes): 60 History Interval history: This is a 56-year-old male with a nicotine abuse, A. fib, hypertension, and chronic medication noncompliance and homelessness who presented to emergency department on 05/04 with complaints of dyspnea on exertion for the past month worsening over the past 3 days, intermittent left-sided chest tightness with activity, and persistent cough without fever. Work-up in the emergency department revealed anemia, hyponatremia, elevated BUN/creatinine and transaminitis. Patient was admitted to the hospitalist service with acute ki dney injury and accelerated hypertension. Hospital course to date 05/04/2021. Cardiology was considering patient for [employer]. However, patient with elevated creatinine therefore will hold off on cath evaluation. Nephrology consultation for acute kidney injury. Etiology likely secondary to vasomotor nephropathy/dehydration. We will start IV fluid hydration. Check renal ultrasound to rule out obstructive uropathy. We will resume home medications for the accelerated hypertension 05/05/2021. Echocardiogram reveals EF 35-40% with moderate concentric left ventricular hypertrophy. Moderate global hypokinesis of left ventricle. Mild mitral regurgitation. Mild pulmonary hypertension. Troponins are believed to be elevated in the setting of acute kidney injury. No beta-blockers due to cocaine use continue heparin and nitro drip. Continue CIWA protocol. Await urine studies 05/06/2021. Patient decompensated yesterday with worsening respiratory failure and difficulty to protect airway. Patient was breathing sonorously, and hypoxic. Patient was intubated and currently is on mechanical ventilation. Patient with AC mode ventilation rate of 20, tidal volume 450, FiO2 40% and PEEP of 6. COVID PCR testing on 05/05/2021 was found to be positive. Echocardiogram completed on this admission shows worsening EF from August 2020. Echocardiogram now reveals moderate concentric left ventricular hypertrophy with moderate global hypokinesis and EF of 35-40%. Mild pulmonary hypertension. 05/08: Continue current management, renal stable, LFTs stable and if improved will start on statin therapy. 05/09: Patient is febrile, will panculture, PSV today. CRP pending. Mucoid discharge noted from meatus which was sent for culture. Hypernatremia persists, free water flushes increased 05/10: PSV trial per CCM, T-max 102.3, given mildly elevated procalcitonin s tarted on ceftriaxone 2 g every 24 for 2 days per ID. Overnight patient had atrial fibrillation which was treated with Cardizem drip and converted to sinus rhythm. Metoprolol p.o. increased to 3 times daily. Hospitalist Physical - Constitutional Vitals: Temp Pulse Resp BP Pulse Ox 100.6 F H 81 25 H 134/95 100 05/10/21 16:00 05/10/21 17:23 05/10/21 17:23 05/10/21 17:23 05/10/21 17:23 General appearance: Present: no acute distress - EENT Eyes: Present: PERRL, EOM intact ENT: clear oral mucosa - Neck Neck: Present: normal ROM - Respiratory Respiratory effort: normal Respiratory: bilateral: diminished - Cardiovascular Rhythm: regular Heart Sounds: Present: S1 & S2 - Extremities Extremities: no ischemia, pulses intact, pulses symmetrical, normal temperature, normal color Peripheral Pulses: within normal limits - Abdominal General gastrointestinal: soft, non-tender, non-distended, normal bowel sounds - Integumentary Integumentary: Present: warm - Psychiatric Psychiatric: other (sedated) - Neurologic Neurologic: other (Intact cough/gag) - Allied Health Allied health notes reviewed: nursing, RT, social work HEART Score - HEART Score EKG: Non-specific Age: 45-65 Risk factors: 1-2 risk factors Troponin: Troponin T 1.400 ng/mL (0.00-0.029) H* 05/04/21 13:34 Troponin: 1-3x normal limit - Critical Actions Critical Actions: 4-6 pts:12-16.6% risk of adverse cardiac event. Should be admitted Results - Labs CBC & Chem 7: 05/10/21 04:57 05/10/21 04:57 Labs: Laboratory Last Values WBC 9.5 K/mm3 (4.5-11.0) 05/10/21 04:57 RBC 2.87 M/mm3 (3.65-5.03) L 05/10/21 04:57 Hgb 8.8 gm/dl (11.8-15.2) L 05/10/21 04:57 Hct 27.0 % (35.5-45.6) L 05/10/21 04:57 MCV 94 fl (84-94) 05/10/21 04:57 MCH 31 pg (28-32) 05/10/21 04:57 MCHC 33 % (32-34) 05/10/21 04:57 RDW 15.9 % (13.2-15.2) H 05/10/21 04:57 Plt Count 324 K/mm3 (140-440) 05/10/21 04:57 Lymph % (Auto) 5.9 % (13.4-35.0) L 05/09/21 09:48 [place] % (Auto) 8.9 % (0.0-7.3) H 05/09/21 09:48 Eos % (Auto) 0.4 % (0.0-4.3) 05/09/21 09:48 Baso % (Auto) 0.5 % (0.0-1.8) 05/09/21 09:48 Lymph # (Auto) 0.7 K/mm3 (1.2-5.4) L 05/09/21 09:48 [place] # (Auto) 1.0 K/mm3 (0.0-0.8) H 05/09/21 09:48 Eos # (Auto) 0.0 K/mm3 (0.0-0.4) 05/09/21 09:48 Baso # (Auto) 0.1 K/mm3 (0.0-0.1) 05/09/21 09:48 Seg Neutrophils % 84.3 % (40.0-70.0) H 05/09/21 09:48 Seg Neutrophils # 9.8 K/mm3 (1.8-7.7) H 05/09/21 09:48 PT 15.1 Sec. (12.2-14.9) H 05/04/21 07:25 INR 1.07 (0.87-1.13) 05/04/21 07:25 APTT 31.9 Sec. (24.2-36.6) 05/04/21 07:25 D-Dimer 1546.78 ng/mlDDU (0-234) H 05/10/21 04:57 Heparin Anti-Xa Level < 0.10 U.I./ml (0.3-0.7) L 05/07/21 22:41 ABG pH 7.473 pH Units (7.350-7.450) H 05/10/21 08:04 ABG pCO2 32.5 mm Hg 05/10/21 08:04 ABG pO2 114.6 mm Hg (80.0-90.0) H 05/10/21 08:04 ABG HCO3 23.2 mmol/L (20.0-26.0) 05/10/21 08:04 ABG O2 Saturation 98.3 % (95.0-99.0) 05/10/21 08:04 ABG O2 Content 13.1 (0.0-44) 05/10/21 08:04 ABG Base Excess 0.0 mmol/L (-2.0-3.0) 05/10/21 08:04 ABG Hemoglobin 9.5 gm/dl (14.0-18.0) L 05/10/21 08:04 ABG Carboxyhemoglobin 1.6 % (0.0-5.0) 05/10/21 08:04 ABG Methemoglobin 0.6 % (0.0-1.5) 05/10/21 08:04 Oxyhemoglobin 96.3 % (95.0-99.0) 05/10/21 08:04 FiO2 30 % 05/10/21 08:04 Sodium 148 mmol/L (137-145) H 05/10/21 04:57 Potassium 4.3 mmol/L (3.6-5.0) 05/10/21 04:57 Chloride 114.9 mmol/L (98-107) H 05/10/21 04:57 Carbon Dioxide 21 mmol/L (22-30) L 05/10/21 04:57 Anion Gap 16 mmol/L 05/10/21 04:57 BUN 57 mg/dL (9-20) H 05/10/21 04:57 Creatinine 2.3 mg/dL (0.8-1.3) H 05/10/21 04:57 Estimated GFR 29 ml/min 05/10/21 04:57 BUN/Creatinine Ratio 25 % 05/10/21 04:57 Glucose 157 mg/dL (75-100) H 05/10/21 04:57 POC Glucose 189 mg/dL (70-105) H 05/10/21 18:01 Calcium 8.7 mg/dL (8.4-10.2) 05/10/21 04:57 Magnesium 2.30 mg/dL (1.7-2.3) 05/10/21 04:57 Ferritin 888.2 ng/mL (30.0-300.0) H 05/10/21 04:57 Total Bilirubin 0.60 mg/dL (0.1-1.2) 05/09/21 04:20 AST 20 units/L (5-40) 05/09/21 04:20 ALT 210 units/L (7-56) H 05/09/21 04:20 Alkaline Phosphatase 58 units/L (35-129) 05/09/21 04:20 Lactate Dehydrogenase 289 units/L (91-180) H 05/10/21 04:57 Total Creatine Kinase 406 units/L (55-170) H 05/04/21 08:42 Troponin T 1.400 ng/mL (0.00-0.029) H* 05/04/21 13:34 C-Reactive Protein 6.80 mg/dL (0.00-1.30) H 05/10/21 04:57 Total Protein 6.3 g/dL (6.3-8.2) 05/09/21 04:20 Albumin 2.9 g/dL (3.9-5) L 05/09/21 04:20 Albumin/Globulin Ratio 0.9 % 05/09/21 04:20 Triglycerides 144 mg/dL (2-149) 05/10/21 04:57 Cholesterol 140 mg/dL (50-199) 05/04/21 07:25 LDL Cholesterol Direct 89 mg/dL (50-130) 05/04/21 07:25 HDL Cholesterol 48 mg/dL (40-59) 05/04/21 07:25 Cholesterol/HDL Ratio 2.91 % 05/04/21 07:25 Procalcitonin 0.63 ng/mL (<0.15) 05/09/21 15:53 Urine Color Yellow (Yellow) 05/09/21 13:22 Urine Turbidity Turbid (Clear) 05/09/21 13:22 Urine pH 5.0 (5.0-7.0) 05/09/21 13:22 Ur Specific [place] 1.018 (1.003-1.030) 05/09/21 13:22 Urine Protein 100 mg/dl mg/dL (Negative) 05/09/21 13:22 Urine Glucose (UA) Neg mg/dL (Negative) 05/09/21 13:22 Urine Ketones Tr mg/dL (Negative) 05/09/21 13:22 Urine Blood Mod (Negative) 05/09/21 13:22 Urine Nitrite Neg (Negative) 05/09/21 13:22 Urine Bilirubin Neg (Negative) 05/09/21 13:22 Urine Urobilinogen < 2.0 mg/dL (<2.0) 05/09/21 13:22 Ur Leukocyte Esterase Mod (Negative) 05/09/21 13:22 Urine WBC (Auto) 25.0 /HPF (0.0-6.0) H 05/09/21 13:22 Urine RBC (Auto) 8.0 /HPF (0.0-6.0) 05/09/21 13:22 U Epithel Cells (Auto) < 1.0 /HPF (0-13.0) 05/09/21 13:22 Urine Bacteria (Auto) 1+ /HPF (Negative) 05/09/21 00:40 Uric Acid Crystals Few 05/09/21 00:40 Triple Phos Crystals 2+ 05/09/21 13:22 Amorphous Crystals Few 05/09/21 00:40 Urine Mucus Few /HPF 05/09/21 00:40 Urine Opiates Screen Negative 05/04/21 Unknown Urine Methadone Screen Negative 05/04/21 Unknown Ur Barbiturates Screen Negative 05/04/21 Unknown Ur Phencyclidine Scrn Negative 05/04/21 Unknown Ur Amphetamines Screen Positive 05/04/21 Unknown U Benzodiazepines Scrn Negative 05/04/21 Unknown Urine Cocaine Screen Negative 05/04/21 Unknown U Marijuana (THC) Screen Negative 05/04/21 Unknown Drugs of Abuse Note Disclamer 05/04/21 Unknown AUDRA Screen Negative (Negative) 05/05/21 03:40 Proteinase 3 (PR3) Ab <1.0 AI (<1.0) 05/05/21 03:40 Myeloperoxidase Ab <1.0 AI (<1.0) 05/05/21 03:40 Complement C3 72 mg/dL (82-185) L 05/05/21 03:40 Complement C4 17 mg/dL (15-53) 05/05/21 03:40 Coronavirus (PCR) Positive (Negative) A 05/05/21 08:30 Hepatitis A IgM Ab Non-reactive (NonReactive) 05/05/21 03:40 Hep Bs Antigen Non-reactive (Negative) 05/05/21 03:40 Hep B Core IgM Ab Non-reactive (NonReactive) 05/05/21 03:40 Hepatitis C Antibody Reactive (NonReactive) A 05/05/21 03:40 Microbiology: Microbiology 05/09/21 13:53 Peripheral/Venous Blood Culture - Preliminary NO GROWTH AFTER 24 HOURS 05/09/21 13:53 Peripheral/Venous Blood Culture - Preliminary NO GROWTH AFTER 24 HOURS 05/07/21 16:16 Peripheral/Venous Blood Culture - Preliminary NO GROWTH AFTER 48 HOURS 05/07/21 16:28 Peripheral/Venous Blood Culture - Preliminary NO GROWTH AFTER 48 HOURS Merino/IV: Voiding Method Condom Catheter Active Medications - Current Medications Current Medications: Generic Name Dose Route Start Last Admin Trade Name Freq PRN Reason Stop Dose Admin Acetaminophen 650 mg 05/04/21 12:34 05/10/21 18:41 Acetaminophen 325 Mg Tab PO 650 mg Q4H PRN Administration Pain MILD(1-3)/Fever >100.5/MARIA Acetaminophen 650 mg 05/07/21 16:00 05/07/21 15:54 Acetaminophen 650 Mg Rect Supp ID 650 mg Q4H PRN Administration Pain, Mild (1-3) Aspirin 81 mg 05/06/21 14:00 05/10/21 09:45 Aspirin 81 Mg Tab Chew PO 81 mg QDAY RISHI Administration Atorvastatin Calcium 40 mg 05/09/21 22:00 05/09/21 21:59 Atorvastatin 40 Mg Tab FEEDTUBE 40 mg QHS RISHI Administration Dexamethasone 8 mg 05/08/21 12:00 05/10/21 09:44 Dexamethasone 4 Mg/Ml Vial IV 05/17/21 10:01 8 mg Q24HR RIHSI Administration Dextrose 0 ml 05/09/21 10:49 Dextrose 10% *Hypoglycemia IV PRN PRN Hypoglycemia Famotidine 10 mg 05/06/21 11:30 05/10/21 09:44 Famotidine 20 Mg/2 Ml Inj IV 10 mg BID RISHI Administration Fentanyl 50 mcg 05/05/21 15:21 Fentanyl 100 Mcg/2 Ml Inj IV Q10MIN PRN ANALGESIA Haloperidol Lactate 5 mg 05/09/21 18:32 05/10/21 11:10 Haloperidol Lactate 5 Mg/1 Ml Inj IV 5 mg Q6H PRN Administration Agitation Heparin Sodium (Porcine) 5,000 unit 05/06/21 22:00 05/10/21 09:45 Heparin 5,000 Unit/1 Ml Vial SUB-Q 5,000 unit Q12HR RISHI Administration Hydralazine HCl 50 mg 05/04/21 14:00 05/10/21 15:41 Hydralazine 25 Mg Tab PO 50 mg Q8HR RISHI Administration Hydralazine HCl 10 mg 05/07/21 16:16 05/09/21 17:35 Hydralazine 20 Mg/1 Ml Inj IV 10 mg Q2H PRN Administration Blood Pressure Hydrophilic Ointment 1 applic 05/05/21 15:21 Lip Therapy Vaseline TP Q2HR PRN Dry Lips Fentanyl Citrate 2,000 mcg in 100 mls @ 4.082 mls/hr 05/05/21 16:00 05/10/21 16:43 Fentanyl Drip Premix IV 2 mcg/kg/hr TITR RISHI 8.165 mls/hr Titration Protocol 1 MCG/KG/HR Propofol 1,000 mg in 100 mls @ 2.449 mls/hr 05/05/21 16:00 05/09/21 06:16 Diprivan 10 Mg/Ml IV 20 mcg/kg/min TITR RISHI 9.798 mls/hr Administration Protocol 5 MCG/KG/MIN Sodium Chloride 1,000 mls @ 75 mls/hr 05/07/21 14:00 05/10/21 14:23 Nacl 0.45% 1000 Ml IV 75 mls/hr DIRECT RISHI Administration Ceftriaxone Sodium 2 gm in 100 mls @ 200 mls/hr 05/10/21 16:00 05/10/21 18:41 Rocephin/Ns 2 Gm/100 Ml IV 200 mls/hr Q24H RISHI Administration Protocol Insulin Human Lispro 0 unit 05/10/21 09:40 Insulin Lispro 100 Unit/Ml SUB-Q Q6HR PRN Hyperglycemia Protocol Metoprolol Tartrate 50 mg 05/10/21 14:00 05/10/21 15:41 Metoprolol Tartrate 50 Mg Tab FEEDTUBE 50 mg TID RISHI Administration Multi-Ingred Cream/Lotion/Oil/Oint 1 applic 05/05/21 15:21 Mineral Oil/Petrolatum, White Ophth Oint 3.5 Gm OU Q4HR PRN Dry Eye(s) Ondansetron HCl 4 mg 05/04/21 12:34 05/04/21 21:51 Ondansetron 4 Mg/2 Ml Inj IV 4 mg Q8H PRN Administration Nausea And Vomiting Quetiapine Fumarate 200 mg 05/09/21 22:00 05/10/21 09:44 Quetiapine 200 Mg Tab PO 200 mg BID RISHI Administration Senna/Docusate Sodium 1 tab 05/05/21 22:00 05/10/21 09:45 Sennosides/Docusate Sodium 8.6/50 Mg Tab FEEDTUBE 1 tab BID RISHI Administration Sodium Chloride 10 ml 05/04/21 22:00 05/10/21 09:46 Sodium Chloride 0.9% 10 Ml Flush Syringe IV Not Given BID RISHI Sodium Chloride 10 ml 05/04/21 12:34 05/06/21 13:59 Sodium Chloride 0.9% 10 Ml Flush Syringe IV 10 ml PRN PRN Administration LINE FLUSH Sodium Chloride 10 ml 05/09/21 09:46 Sodium Chloride 0.9% 50 Ml Ivpb IV PRN PRN FLUSH Nutrition/Malnutrition Assess - Dietary Evaluation Nutrition/Malnutrition Findings: Nutrition Notes Start: 05/05/21 16:15 Freq: Status: Active Protocol: Document 05/09/21 11:40 MORALES (Rec: 05/09/21 12:17 MORALES [id number]) Nutrition Notes Need for Assessment generated from: MD Order Initial or Follow up Assessment Current Diagnosis Acute Kidney Injury, Hypertension Other Pertinent Diagnosis COVID-19, NSTEMI, Hep-C, Anemia, Metabolic Acidosis, Transaminitis, Drug ab Current Diet TF-Promote @ 60 ml/hr (since D 05/09). Labs/Tests 05/09: Na 151, Cl 114.5, CO2 21, BUN 57, Crea 2.4. Pertinent Medications 05/09: NaCl 0.45% 1000 ml @ 75 ml/hr, Propofol 1000mg in 100 ml @ 2.449 ml/hr (65 Kcal), others nutritionally unremarkable. Height 5 ft 7 in Weight 81.647 kg [place] Body Weight (kg) 67.27 BMI 28.1 Weight change and time frame No body weight change in 4 days reported. Weight Status Overweight Subjective/Other Information RD consult for routine F/u and MD request to write/manage TF . Pt is on mechanical ventilation, according to Physical Assessment History notes. Pt has missing teeth, according to Physical Assessment History notes. F/U for TF tolerance. Percent of energy/protein needs met: Prescribed Promote @ 60 ml/hr provides for energy/protein needs (1,444 Kcal/90 g) during LOS, 75% Kcal; 90% AA. Burn Absent Trauma Absent GI Symptoms None Difficulty In Chewing Food Allergy No Skin Integrity/Comment Clear, warm, dry. Current % PO Other Minimum of two criteria No #1 Nutrition Diagnosis Inadequate oral intake Etiology Pt on mechanical ventilaton. As Evidenced by Signs and Symptoms Pt currently on NPO. Is patient on ventilator? Yes Is Patient Ambulatory and/or Out of Bed No REE-([facility]-confined to bed) [phone] Calculation Used for Recommendations 70-80% of EEN Additional Notes 15-20 Kcal/Kg ABW. Protein: 1.2-2 g/Kg; 100-164 g /day. Fluids: 1 ml/Kcal, or as per MD. Nutrition Intervention Nutrition Support: Start Promote @ 60 ml/hr. Flush: 120 ml water Q 4 hr, or as per MD. Kcal 1,444 Protein (gm) 90 Carbohydrates (gm) 188 Fat (gm) 38 Fluid (mL) 1,212 Fiber (gm) 0 % RDI: 75% Kcal; 90% AA. Goal #1 Provide at least 75% of energy /protein needs through Enteral Feeding during LOS. Follow-Up By: 05/11/21 Additional Comments Continue monitoring TF tolerance and BM. <LALA RODARTE - Last Filed: 05/19/21 13:00> Assessment and Plan Assessment and plan: I saw and evaluated the patient. Discussed with the nurse practitioner and agree with their findings and plan as documented in this note. Hospitalist Physical - Constitutional Vitals: Temp Pulse Resp BP Pulse Ox 101.6 F H 81 30 H 131/101 100 05/19/21 11:47 05/19/21 12:00 05/19/21 12:00 05/19/21 12:00 05/19/21 12:00 HEART Score - HEART Score Troponin: Troponin T 0.400 ng/mL (0.00-0.029) H* D 05/16/21 18:40 Results - Labs CBC & Chem 7: 05/19/21 05:23 05/19/21 05:23 Labs: Laboratory Last Values WBC 18.5 K/mm3 (4.5-11.0) H 05/19/21 05:23 RBC 3.31 M/mm3 (3.65-5.03) L 05/19/21 05:23 Hgb 9.9 gm/dl (11.8-15.2) L 05/19/21 05:23 Hct 31.1 % (35.5-45.6) L 05/19/21 05:23 MCV 94 fl (84-94) 05/19/21 05:23 MCH 30 pg (28-32) 05/19/21 05:23 MCHC 32 % (32-34) 05/19/21 05:23 RDW 16.9 % (13.2-15.2) H 05/19/21 05:23 Plt Count 370 K/mm3 (140-440) 05/19/21 05:23 Lymph % (Auto) [employer] 05/16/21 10:21 [place] % (Auto) [employer] 05/16/21 10:21 Eos % (Auto) [employer] 05/16/21 10:21 Baso % (Auto) [employer] 05/16/21 10:21 Lymph # (Auto) [employer] 05/16/21 10:21 [place] # (Auto) [employer] 05/16/21 10:21 Eos # (Auto) [employer] 05/16/21 10:21 Baso # (Auto) [employer] 05/16/21 10:21 Add Manual Diff Complete 05/16/21 10:21 Total Counted 100 05/16/21 10:21 Seg Neutrophils % [employer] 05/16/21 10:21 Seg Neuts % (Manual) 83.0 % (40.0-70.0) H 05/16/21 10:21 Band Neutrophils % 2.0 % 05/16/21 10:21 Lymphocytes % (Manual) 4.0 % (13.4-35.0) L 05/16/21 10:21 Reactive Lymphs % (Man) 0 % 05/16/21 10:21 Monocytes % (Manual) 9.0 % (0.0-7.3) H 05/16/21 10:21 Eosinophils % (Manual) 0 % (0.0-4.3) 05/16/21 10:21 Basophils % (Manual) 0 % (0.0-1.8) 05/16/21 10:21 Metamyelocytes % 0 % 05/16/21 10:21 Myelocytes % 2.0 % 05/16/21 10:21 Promyelocytes % 0 % 05/16/21 10:21 Blast Cells % 0 % 05/16/21 10:21 Nucleated RBC % Not Reportable 05/16/21 10:21 Seg Neutrophils # [employer] 05/16/21 10:21 Seg Neutrophils # Man 22.9 K/mm3 (1.8-7.7) H 05/16/21 10:21 Band Neutrophils # 0.6 K/mm3 05/16/21 10:21 Lymphocytes # (Manual) 1.1 K/mm3 (1.2-5.4) L 05/16/21 10:21 Abs React Lymphs (Man) 0.0 K/mm3 05/16/21 10:21 Monocytes # (Manual) 2.5 K/mm3 (0.0-0.8) H 05/16/21 10:21 Eosinophils # (Manual) 0.0 K/mm3 (0.0-0.4) 05/16/21 10:21 Basophils # (Manual) 0.0 K/mm3 (0.0-0.1) 05/16/21 10:21 Metamyelocytes # 0.0 K/mm3 05/16/21 10:21 Myelocytes # 0.6 K/mm3 05/16/21 10:21 Promyelocytes # 0.0 K/mm3 05/16/21 10:21 Blast Cells # 0.0 K/mm3 05/16/21 10:21 WBC Morphology Not Reportable 05/16/21 10:21 Hypersegmented Neuts Not Reportable 05/16/21 10:21 Hyposegmented Neuts Not Reportable 05/16/21 10:21 Hypogranular Neuts Not Reportable 05/16/21 10:21 Smudge Cells Not Reportable 05/16/21 10:21 Toxic Granulation Not Reportable 05/16/21 10:21 Toxic Vacuolation Not Reportable 05/16/21 10:21 Dohle Bodies Not Reportable 05/16/21 10:21 Pelger-Huet Anomaly Not Reportable 05/16/21 10:21 Jesse Rods Not Reportable 05/16/21 10:21 Platelet Estimate Consistent w auto 05/16/21 10:21 Clumped Platelets Few 05/16/21 10:21 Plt Clumps, EDTA Not Reportable 05/16/21 10:21 Large Platelets Not Reportable 05/16/21 10:21 Giant Platelets Not Reportable 05/16/21 10:21 Platelet Satelliting Not Reportable 05/16/21 10:21 Plt Morphology Comment Not Reportable 05/16/21 10:21 RBC Morphology Not Reportable 05/16/21 10:21 Dimorphic RBCs Not Reportable 05/16/21 10:21 Polychromasia Not Reportable 05/16/21 10:21 Hypochromasia Not Reportable 05/16/21 10:21 Poikilocytosis Not Reportable 05/16/21 10:21 Anisocytosis 1+ 05/16/21 10:21 Microcytosis Not Reportable 05/16/21 10:21 Macrocytosis Few 05/16/21 10:21 Spherocytes Not Reportable 05/16/21 10:21 Pappenheimer Bodies Not Reportable 05/16/21 10:21 Sickle Cells Not Reportable 05/16/21 10:21 Target Cells Not Reportable 05/16/21 10:21 Tear Drop Cells Not Reportable 05/16/21 10:21 Ovalocytes Not Reportable 05/16/21 10:21 Helmet Cells Not Reportable 05/16/21 10:21 Murphy-Gay Bodies Not Reportable 05/16/21 10:21 [place] Rings Not Reportable 05/16/21 10:21 Alec Cells Not Reportable 05/16/21 10:21 Bite Cells Not Reportable 05/16/21 10:21 Crenated Cell Not Reportable 05/16/21 10:21 Elliptocytes Not Reportable 05/16/21 10:21 Acanthocytes (Spur) Not Reportable 05/16/21 10:21 Rouleaux Not Reportable 05/16/21 10:21 Hemoglobin C Crystals Not Reportable 05/16/21 10:21 Schistocytes Not Reportable 05/16/21 10:21 Malaria parasites Not Reportable 05/16/21 10:21 Tomi Bodies Not Reportable 05/16/21 10:21 Hem Pathologist Commnt No 05/16/21 10:21 PT 15.6 Sec. (12.2-14.9) H 05/11/21 14:43 INR 1.12 (0.87-1.13) 05/11/21 14:43 APTT 30.3 Sec. (24.2-36.6) 05/11/21 14:43 D-Dimer 2730.61 ng/mlDDU (0-234) H 05/12/21 07:19 Heparin Anti-Xa Level 0.47 U.I./ml (0.3-0.7) 05/19/21 05:23 ABG pH 7.428 pH Units (7.350-7.450) 05/18/21 12:50 ABG pCO2 43.3 mm Hg 05/18/21 12:50 ABG pO2 79.6 mm Hg (80.0-90.0) L 05/18/21 12:50 ABG HCO3 28.0 mmol/L (20.0-26.0) H 05/18/21 12:50 ABG O2 Saturation 97.0 % (95.0-99.0) 05/18/21 12:50 ABG O2 Content 8.4 (0.0-44) 05/18/21 12:50 ABG Base Excess 3.3 mmol/L (-2.0-3.0) H 05/18/21 12:50 ABG Hemoglobin 6.2 gm/dl (14.0-18.0) L 05/18/21 12:50 ABG Carboxyhemoglobin 1.5 % (0.0-5.0) 05/18/21 12:50 ABG Methemoglobin 0.4 % (0.0-1.5) 05/18/21 12:50 Oxyhemoglobin 95.2 % (95.0-99.0) 05/18/21 12:50 FiO2 40 % 05/18/21 12:50 Sodium 141 mmol/L (137-145) 05/19/21 05:23 Sodium 142 mmol/L (137-145) 05/19/21 05:23 Potassium 4.5 mmol/L (3.6-5.0) 05/19/21 05:23 Potassium 4.8 mmol/L (3.6-5.0) 05/19/21 05:23 Chloride 104.8 mmol/L (98-107) 05/19/21 05:23 Chloride 105.4 mmol/L (98-107) 05/19/21 05:23 Carbon Dioxide 24 mmol/L (22-30) 05/19/21 05:23 Carbon Dioxide 26 mmol/L (22-30) 05/19/21 05:23 Anion Gap 16 mmol/L 05/19/21 05:23 Anion Gap 16 mmol/L 05/19/21 05:23 BUN 34 mg/dL (9-20) H 05/19/21 05:23 BUN 35 mg/dL (9-20) H 05/19/21 05:23 Creatinine 2.0 mg/dL (0.8-1.3) H 05/19/21 05:23 Creatinine 2.1 mg/dL (0.8-1.3) H 05/19/21 05:23 Estimated GFR 33 ml/min 05/19/21 05:23 Estimated GFR 35 ml/min 05/19/21 05:23 BUN/Creatinine Ratio 16 % 05/19/21 05:23 BUN/Creatinine Ratio 18 % 05/19/21 05:23 Glucose 90 mg/dL (75-100) 05/19/21 05:23 Glucose 94 mg/dL (75-100) 05/19/21 05:23 POC Glucose 111 mg/dL (70-105) H 05/19/21 11:24 Calcium 8.9 mg/dL (8.4-10.2) 05/19/21 05:23 Calcium 9.1 mg/dL (8.4-10.2) 05/19/21 05:23 Phosphorus 4.00 mg/dL (2.5-4.5) 05/14/21 15:44 Magnesium 2.00 mg/dL (1.7-2.3) 05/14/21 15:44 Ferritin 640.2 ng/mL (30.0-300.0) H 05/12/21 07:19 Total Bilirubin 0.60 mg/dL (0.1-1.2) 05/16/21 10:21 AST 34 units/L (5-40) 05/16/21 10:21 ALT 51 units/L (7-56) 05/16/21 10:21 Alkaline Phosphatase 74 units/L (35-129) 05/16/21 10:21 Lactate Dehydrogenase 314 units/L (91-180) H 05/12/21 07:19 Total Creatine Kinase 406 units/L (55-170) H 05/04/21 08:42 Troponin T 0.400 ng/mL (0.00-0.029) H* D 05/16/21 18:40 C-Reactive Protein 1.60 mg/dL (0.00-1.30) H 05/12/21 07:19 Total Protein 7.4 g/dL (6.3-8.2) 05/16/21 10:21 Albumin 3.1 g/dL (3.9-5) L 05/16/21 10:21 Albumin/Globulin Ratio 0.7 % 05/16/21 10:21 Triglycerides 144 mg/dL (2-149) 05/10/21 04:57 Cholesterol 140 mg/dL (50-199) 05/04/21 07:25 LDL Cholesterol Direct 89 mg/dL (50-130) 05/04/21 07:25 HDL Cholesterol 48 mg/dL (40-59) 05/04/21 07:25 Cholesterol/HDL Ratio 2.91 % 05/04/21 07:25 Procalcitonin 0.63 ng/mL (<0.15) 05/09/21 15:53 Urine Color Yellow (Yellow) 05/09/21 13:22 Urine Turbidity Turbid (Clear) 05/09/21 13:22 Urine pH 5.0 (5.0-7.0) 05/09/21 13:22 Ur Specific [place] 1.018 (1.003-1.030) 05/09/21 13:22 Urine Protein 100 mg/dl mg/dL (Negative) 05/09/21 13:22 Urine Glucose (UA) Neg mg/dL (Negative) 05/09/21 13:22 Urine Ketones Tr mg/dL (Negative) 05/09/21 13:22 Urine Blood Mod (Negative) 05/09/21 13:22 Urine Nitrite Neg (Negative) 05/09/21 13:22 Urine Bilirubin Neg (Negative) 05/09/21 13:22 Urine Urobilinogen < 2.0 mg/dL (<2.0) 05/09/21 13:22 Ur Leukocyte Esterase Mod (Negative) 05/09/21 13:22 Urine WBC (Auto) 25.0 /HPF (0.0-6.0) H 05/09/21 13:22 Urine RBC (Auto) 8.0 /HPF (0.0-6.0) 05/09/21 13:22 U Epithel Cells (Auto) < 1.0 /HPF (0-13.0) 05/09/21 13:22 Urine Bacteria (Auto) 1+ /HPF (Negative) 05/09/21 00:40 Uric Acid Crystals Few 05/09/21 00:40 Triple Phos Crystals 2+ 05/09/21 13:22 Amorphous Crystals Few 05/09/21 00:40 Urine Mucus Few /HPF 05/09/21 00:40 Urine Creatinine 100.8 mg/dL (0.1-20.0) H 05/10/21 11:03 Protein/Creatinin Ratio 0.42 05/10/21 11:03 Urine Sodium 61 mmol/L 05/05/21 09:57 Urine Total Protein 42 mg/dL (5-11.8) H 05/10/21 11:03 Urine Opiates Screen Negative 05/04/21 Unknown Urine Methadone Screen Negative 05/04/21 Unknown Ur Barbiturates Screen Negative 05/04/21 Unknown Ur Phencyclidine Scrn Negative 05/04/21 Unknown Ur Amphetamines Screen Positive 05/04/21 Unknown U Benzodiazepines Scrn Negative 05/04/21 Unknown Urine Cocaine Screen Negative 05/04/21 Unknown U Marijuana (THC) Screen Negative 05/04/21 Unknown Drugs of Abuse Note Disclamer 05/04/21 Unknown Immunofix Electrophor see below 05/05/21 03:40 AUDRA Screen Negative (Negative) 05/05/21 03:40 Proteinase 3 (PR3) Ab <1.0 AI (<1.0) 05/05/21 03:40 Myeloperoxidase Ab <1.0 AI (<1.0) 05/05/21 03:40 Complement C3 72 mg/dL (82-185) L 05/05/21 03:40 Complement C4 17 mg/dL (15-53) 05/05/21 03:40 Coronavirus (PCR) Positive (Negative) A 05/05/21 08:30 Hepatitis A IgM Ab Non-reactive (NonReactive) 05/05/21 03:40 Hep Bs Antigen Non-reactive (Negative) 05/05/21 03:40 Hep B Core IgM Ab Non-reactive (NonReactive) 05/05/21 03:40 Hepatitis C Antibody Reactive (NonReactive) A 05/05/21 03:40 Microbiology: Microbiology 05/16/21 10:31 Tracheal Aspirate Sputum Culture - Final Enterobacter Aerogenes [place]/IV: Voiding Method Indwelling Catheter Active Medications - Current Medications Current Medications: Generic Name Dose Route Start Last Admin Trade Name Freq PRN Reason Stop Dose Admin Acetaminophen 650 mg 05/04/21 12:34 05/19/21 11:47 Acetaminophen 325 Mg Tab PO 650 mg Q4H PRN Administration Pain MILD(1-3)/Fever >100.5/MARIA Acetaminophen 650 mg 05/07/21 16:00 05/11/21 16:25 Acetaminophen 650 Mg Rect Supp ID 650 mg Q4H PRN Administration Pain, Mild (1-3) Amlodipine Besylate 5 mg 05/19/21 11:00 05/19/21 10:38 Amlodipine 5 Mg Tab PO 5 mg QDAY RISHI Administration Aspirin 81 mg 05/06/21 14:00 05/19/21 09:00 Aspirin 81 Mg Tab Chew PO 81 mg QDAY RISHI Administration Atorvastatin Calcium 40 mg 05/09/21 22:00 05/18/21 21:33 Atorvastatin 40 Mg Tab FEEDTUBE 40 mg QHS RISHI Administration Chlordiazepoxide HCl 75 mg 05/11/21 15:00 05/19/21 08:55 Chlordiazepoxide 25 Mg Cap PO 75 mg Q8H RISHI Administration Dextrose 0 ml 05/09/21 10:49 05/14/21 06:55 Dextrose 10% *Hypoglycemia IV 250 ml PRN PRN Administration Hypoglycemia Famotidine 10 mg 05/17/21 10:00 05/19/21 09:00 Famotidine 10 Mg Tab FEEDTUBE 10 mg BID RISHI Administration Haloperidol Lactate 5 mg 05/09/21 18:32 05/18/21 19:52 Haloperidol Lactate 5 Mg/1 Ml Inj IV 5 mg Q6H PRN Administration Agitation Heparin Sodium (Porcine) 3,000 unit 05/11/21 14:14 Heparin 10,000 Units/10 Ml Vial IV Q6H PRN Anti-Xa Assay < 0.1 units/ml Hydralazine HCl 50 mg 05/04/21 14:00 05/19/21 08:56 Hydralazine 25 Mg Tab PO 50 mg Q8HR RISHI Administration Hydrophilic Ointment 1 applic 05/05/21 15:21 Lip Therapy Vaseline TP Q2HR PRN Dry Lips Heparin Sodium/Sodium Chloride 25,000 unit in 500 mls @ 24 mls/hr 05/11/21 15:00 05/19/21 06:59 Heparin/ 0.45% Nacl-25,000 Unit/500 Ml IV 1,550 units/hr TITR RISHI 31 mls/hr Titration Protocol 1,200 UNITS/HR Cefepime HCl 2 gm in 100 mls @ 200 mls/hr 05/18/21 18:00 05/18/21 17:27 Cefepime/Ns 2 Gm/100 Ml IV 200 mls/hr Q24H RISHI Administration Protocol Insulin Human Lispro 0 unit 05/10/21 09:40 05/12/21 16:49 Insulin Lispro 100 Unit/Ml SUB-Q 2 unit Q6HR PRN Administration Hyperglycemia Protocol Labetalol HCl 10 mg 05/15/21 10:24 Labetalol 20 Mg/4 Ml Inj IV Q4H PRN sbp> 160. Metoprolol Tartrate 50 mg 05/10/21 14:00 05/19/21 08:55 Metoprolol Tartrate 50 Mg Tab FEEDTUBE 50 mg TID RISHI Administration Multi-Ingred Cream/Lotion/Oil/Oint 1 applic 05/05/21 15:21 Mineral Oil/Petrolatum, White Ophth Oint 3.5 Gm OU Q4HR PRN Dry Eye(s) Ondansetron HCl 4 mg 05/04/21 12:34 05/04/21 21:51 Ondansetron 4 Mg/2 Ml Inj IV 4 mg Q8H PRN Administration Nausea And Vomiting Quetiapine Fumarate 100 mg 05/19/21 22:00 Quetiapine 100 Mg Tab PO BID RISHI Senna/Docusate Sodium 1 tab 05/05/21 22:00 05/19/21 09:00 Sennosides/Docusate Sodium 8.6/50 Mg Tab FEEDTUBE Not Given BID RISHI Sodium Chloride 10 ml 05/04/21 22:00 05/19/21 09:00 Sodium Chloride 0.9% 10 Ml Flush Syringe IV 10 ml BID RISHI Administration Sodium Chloride 10 ml 05/04/21 12:34 05/06/21 13:59 Sodium Chloride 0.9% 10 Ml Flush Syringe IV 10 ml PRN PRN Administration LINE FLUSH Sodium Chloride 10 ml 05/09/21 09:46 Sodium Chloride 0.9% 50 Ml Ivpb IV PRN PRN FLUSH Nutrition/Malnutrition Assess - Dietary Evaluation Nutrition/Malnutrition Findings: Nutrition Notes Start: 05/05/21 16:15 Freq: Status: Active Protocol: Document 05/16/21 10:32 ROSAURA (Rec: 05/16/21 10:48 [id number]) Nutrition Notes Initial or Follow up Reassessment Current Diagnosis Acute Kidney Injury, Hypertension,Heart Failure, Respiratory Failure Other Pertinent Diagnosis Severe COVID-19 pneu, metabolic encephalopathy, polysubstance dependence Current Diet TF - Promote at 60ml/hr Labs/Tests Reviewed Pertinent Medications Lasix, Heparin gtt Height 5 ft 7 in Weight 81.647 kg [place] Body Weight (kg) 67.27 BMI 28.1 Weight Status Overweight Subjective/Other Information Pt extubated on 05/13, however, was re-intubated this am sec to resp distress. Percent of energy/protein needs met: 75% energy 92% pro Minimum of two criteria No #1 Nutrition Diagnosis Inadequate oral intake Diagnosis Progress(for reassessment Continues documentation) Is patient on ventilator? Yes Is Patient Ambulatory and/or Out of Bed No REE-([facility]-confined to bed) 2852.635 Calculation Used for Recommendations [facility] Additional Notes Pro needs 1.2-2g/k-163g/ day Fluid needs 1ml/kcal Nutrition Intervention Nutrition Support: Continue Promote at 60ml/hr with 200ml water flush q4 until hypernatremia resolved. When Na lab is WNL, reduce water flush to 50ml q4h. Kcal 1,440 Protein (gm) 90 Carbohydrates (gm) 187 Fat (gm) 37 Fluid (mL) 1,208 Fiber (gm) 0 Goal #1 TF tolerance Goal #2 TF to meet at least 75% energy and pro needs Follow-Up By: 05/20/21 Additional Comments F/U: TF tolerance, Na lab/ water flushes, BG lab/need for reduced CHO formula, vent status
[2021-05-10] MEDS: INSULIN LISPRO 100 UNIT/ML SUB-Q PRN (19:12)
[2021-05-10 19:59] LABS: Creatinine,Urine 100.8 mg/dL (0.1-20.0); Protein/Creatinine Ratio,Urine 0.42
[2021-05-10 20:36] LABS: Creatinine,Urine 100.8 mg/dL (0.1-20.0)
[2021-05-10 22:11] LABS: ABG Base Excess -0.8 mmol/L (-2.0-3.0); ABG HCO3 22.9 mmol/L (20.0-26.0); ABG Methemoglobin 0.6 % (0.0-1.5); ABG Oxygen Saturation 98.6 % (95.0-99.0); ABG PCO2 33.7 mm Hg; ABG PH 7.449 pH Units (7.350-7.450); ABG PO2 126.6 mm Hg (80.0-90.0)
[2021-05-11] MEDS: SODIUM CHLORIDE 0.45% 1000 ML 1,000 ML IV SCH (04:42)
--- NOTE | 2021-05-11 04:56 | XRay Report ---
CHEST 1 VIEW 05/11/2021 3:42 AM INDICATION / CLINICAL INFORMATION: follow up respiratory failure. COMPARISON: None available. FINDINGS: Mild increased density is seen in the right lower lung. Left lung is clear. No pneumothorax is seen. Signer Name: Master Cantu MD Signed: 05/11/2021 4:51 AM Workstation Name: [id number]
[2021-05-11] MEDS: hydrALAZINE 25 MG TAB PO SCH ×4 (06:34→21:18)
[2021-05-11] MEDS: fentaNYL DRIP Premix 2,000 MCG/100 ML BAG IV SCH ×2 (08:42→23:32)
[2021-05-11] MEDS: METOPROLOL TARTRATE 50 MG TAB FEEDTUBE SCH ×3 (08:44→21:16)
[2021-05-11] MEDS: ACETAMINOPHEN 325 MG TAB PO PRN ×2 (08:45→11:24)
[2021-05-11] MEDS: QUEtiapine 200 MG TAB PO SCH ×2 (09:04→21:18)
[2021-05-11] MEDS: ASPIRIN 81 MG TAB CHEW PO SCH (09:04)
[2021-05-11] MEDS: FAMOTIDINE 20 MG/2 ML INJ IV SCH ×2 (09:04→21:17)
[2021-05-11] MEDS: SENNOSIDES/DOCUSATE SODIUM 8.6/50 MG TAB FEEDTUBE SCH ×2 (09:04→21:17)
[2021-05-11] MEDS: HEPARIN 5,000 UNIT/1 ML VIAL SUB-Q SCH (09:05)
[2021-05-11] MEDS: dexAMETHasone 4 MG/ML VIAL IV SCH (09:05)
[2021-05-11 09:13] LABS: Hemoglobin 9.3 gm/dl (11.8-15.2); Mean Corpuscular HGB Conc 32 % (32-34); Mean Corpuscular Volume 95 fl (84-94); Platelet Count 307 K/mm3 (140-440); Red Blood Count 3.07 M/mm3 (3.65-5.03); Red Cell Distribution Width 16.1 % (13.2-15.2)
[2021-05-11 09:40] LABS: Calcium 8.7 mg/dL (8.4-10.2)
--- NOTE | 2021-05-11 11:32 | Progress Note ---
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 UOP and lytes are stable. Creatinine is slightly higher today at 2.3->2.5 * Continue IVF as tolerated to maintain euvolemia, note non-oliguric urine output, currently on 1/2NS * Serum sodium higher today 151->148->150, continue current IVF, free water flushes with TFs. May need to add D5W if not improving * Await pending serologies and urine lytes- ANCA negative, AUDRA negative, C4 WNL. C3 mildly low at 72, no change to management for now. Urine protein/creatinine minimal at 0.4g * Renal ultrasound reviewed - will need follow up CT once stable * Continue antiHTN medications * Cardiology recommendations noted * Dose medications for renal function * Avoid potential nephrotoxins * Strict I/O Subjective Date of service: 05/11/21 Principal diagnosis: AHRF; COVID-19 infection; NSTEMI; YE; HFrEF (35-40%); Polysubstance abuse Interval history: Patient remains intubated. Chart, vitals, labs reviewed. FiO2 30%, on 1/2NS at 75cc/hr Objective - Exam Narrative Exam: Direct examination deferred in setting of COVID-19 pandemic. Primary team exam reviewed in detail - Vital Signs Vital signs: Vital Signs - 12hr 05/10/21 05/11/21 05/11/21 23:30 00:00 00:06 Temperature 100.7 F H Pulse Rate 78 80 79 Pulse Rate [ From Monitor] Pulse Rate [ Left Radial] Pulse Rate [ Right Radial] Respiratory 15 16 20 Rate Blood Pressure 109/81 116/84 116/84 O2 Sat by Pulse 99 99 99 Oximetry 05/11/21 05/11/21 05/11/21 00:30 01:00 01:30 Temperature Pulse Rate 80 79 82 Pulse Rate [ From Monitor] Pulse Rate [ Left Radial] Pulse Rate [ Right Radial] Respiratory 22 21 15 Rate Blood Pressure 119/85 119/85 120/90 O2 Sat by Pulse 98 98 Oximetry 01/05/11/21 05/11/21 02:00 02:30 03:00 Temperature Pulse Rate 82 82 82 Pulse Rate [ 80 From Monitor] Pulse Rate [ 80 Left Radial] Pulse Rate [ 80 Right Radial] Respiratory 20 18 17 Rate Blood Pressure 123/91 121/88 125/92 O2 Sat by Pulse 99 98 Oximetry 05/11/21 05/11/21 05/11/21 03:30 04:00 04:30 Temperature 101.2 F H Pulse Rate 83 82 91 H Pulse Rate [ From Monitor] Pulse Rate [ Left Radial] Pulse Rate [ Right Radial] Respiratory 20 17 25 H Rate Blood Pressure 127/94 131/95 132/92 O2 Sat by Pulse 100 100 Oximetry 05/11/21 05/11/21 05/11/21 04:43 05:00 05:30 Temperature Pulse Rate 86 89 87 Pulse Rate [ From Monitor] Pulse Rate [ Left Radial] Pulse Rate [ Right Radial] Respiratory 19 16 Rate Blood Pressure 132/92 135/96 137/98 O2 Sat by Pulse 100 96 Oximetry 05/11/21 05/11/21 05/11/21 06:00 06:30 06:34 Temperature Pulse Rate 87 89 92 H Pulse Rate [ 80 From Monitor] Pulse Rate [ 80 Left Radial] Pulse Rate [ 80 Right Radial] Respiratory 15 21 Rate Blood Pressure 139/101 142/105 142/105 O2 Sat by Pulse 100 Oximetry 05/11/21 05/11/21 05/11/21 07:00 07:08 07:21 Temperature 102.3 F H Pulse Rate 89 87 Pulse Rate [ From Monitor] Pulse Rate [ Left Radial] Pulse Rate [ Right Radial] Respiratory 20 Rate Blood Pressure 142/100 134/96 O2 Sat by Pulse 98 98 Oximetry 05/11/21 05/11/21 05/11/21 07:30 08:00 08:30 Temperature Pulse Rate 91 H 88 91 H Pulse Rate [ From Monitor] Pulse Rate [ Left Radial] Pulse Rate [ Right Radial] Respiratory 27 H 21 23 Rate Blood Pressure 141/103 140/99 150/106 O2 Sat by Pulse 98 98 Oximetry 05/11/21 05/11/21 05/11/21 09:00 09:30 10:00 Temperature Pulse Rate 91 H 77 80 Pulse Rate [ 80 From Monitor] Pulse Rate [ 80 Left Radial] Pulse Rate [ 80 Right Radial] Respiratory 22 17 18 Rate Blood Pressure 152/109 152/109 110/83 O2 Sat by Pulse 99 100 Oximetry 05/11/21 05/11/21 10:30 11:26 Temperature 10.3 F L Pulse Rate 82 Pulse Rate [ From Monitor] Pulse Rate [ Left Radial] Pulse Rate [ Right Radial] Respiratory 19 Rate Blood Pressure 120/88 O2 Sat by Pulse 100 Oximetry - Lab 05/11/21 06:53 05/11/21 06:53 Most recent lab results ABG pH 7.449 pH Units (7.350-7.450) 05/10/21 Unknown ABG pCO2 33.7 mm Hg 05/10/21 Unknown ABG pO2 126.6 mm Hg (80.0-90.0) H 05/10/21 Unknown ABG HCO3 22.9 mmol/L (20.0-26.0) 05/10/21 Unknown ABG O2 Saturation 98.6 % (95.0-99.0) 05/10/21 Unknown Calcium 8.7 mg/dL (8.4-10.2) 05/11/21 06:53 Magnesium 2.30 mg/dL (1.7-2.3) 05/10/21 04:57 Urine Creatinine 100.8 mg/dL (0.1-20.0) H 05/10/21 11:03 Urine Sodium 61 mmol/L 05/05/21 09:57 Urine Total Protein 42 mg/dL (5-11.8) H 05/10/21 11:03 Medications & Allergies - Medications Allergies/Adverse Reactions: Allergies No Known Allergies Allergy (Verified 05/08/21 07:47) Home Medications: Home Medications Medication Instructions Recorded Confirmed Last Taken Type Cefpodoxime Proxetil 200 mg PO Q12H #10 tablet 09/11/20 Unknown Rx Famotidine [Pepcid] 20 mg PO BID #30 tablet 04/13/21 Unknown Rx Losartan [Cozaar] 100 mg PO QDAY #60 tablet 04/13/21 Unknown Rx Metoprolol Xl [Metoprolol 25 mg PO QDAY #30 tablet 04/13/21 Unknown Rx SUCCINATE ER TAB] NIFEdipine XL [Procardia Xl] 60 mg PO Q12HR #60 tablet 04/13/21 Unknown Rx hydrALAZINE [Apresoline TAB] 50 mg PO Q8HR #180 tablet 04/13/21 Unknown Rx Active Medications: Generic Name Dose Route Start Last Admin Trade Name Freq PRN Reason Stop Dose Admin Acetaminophen 650 mg 05/04/21 12:34 05/11/21 11:24 Acetaminophen 325 Mg Tab PO 650 mg Q4H PRN Administration Pain MILD(1-3)/Fever >100.5/MARIA Acetaminophen 650 mg 05/07/21 16:00 05/07/21 15:54 Acetaminophen 650 Mg Rect Supp NC 650 mg Q4H PRN Administration Pain, Mild (1-3) Aspirin 81 mg 05/06/21 14:00 05/11/21 09:04 Aspirin 81 Mg Tab Chew PO 81 mg QDAY RISHI Administration Atorvastatin Calcium 40 mg 05/09/21 22:00 05/10/21 21:32 Atorvastatin 40 Mg Tab FEEDTUBE 40 mg QHS RISHI Administration Dexamethasone 8 mg 05/08/21 12:00 05/11/21 09:05 Dexamethasone 4 Mg/Ml Vial IV 05/17/21 10:01 8 mg Q24HR RISHI Administration Dextrose 0 ml 05/09/21 10:49 Dextrose 10% *Hypoglycemia IV PRN PRN Hypoglycemia Famotidine 10 mg 05/06/21 11:30 05/11/21 09:04 Famotidine 20 Mg/2 Ml Inj IV 10 mg BID RISHI Administration Fentanyl 50 mcg 05/05/21 15:21 Fentanyl 100 Mcg/2 Ml Inj IV Q10MIN PRN ANALGESIA Haloperidol Lactate 5 mg 05/09/21 18:32 05/10/21 11:10 Haloperidol Lactate 5 Mg/1 Ml Inj IV 5 mg Q6H PRN Administration Agitation Heparin Sodium (Porcine) 5,000 unit 05/06/21 22:00 05/11/21 09:05 Heparin 5,000 Unit/1 Ml Vial SUB-Q 5,000 unit Q12HR RISHI Administration Hydralazine HCl 50 mg 05/04/21 14:00 05/11/21 06:34 Hydralazine 25 Mg Tab PO 50 mg Q8HR RISHI Administration Hydralazine HCl 10 mg 05/07/21 16:16 05/09/21 17:35 Hydralazine 20 Mg/1 Ml Inj IV 10 mg Q2H PRN Administration Blood Pressure Hydrophilic Ointment 1 applic 05/05/21 15:21 Lip Therapy Vaseline TP Q2HR PRN Dry Lips Fentanyl Citrate 2,000 mcg in 100 mls @ 4.082 mls/hr 05/05/21 16:00 05/11/21 08:42 Fentanyl Drip Premix IV 2 mcg/kg/hr TITR RISHI 8.165 mls/hr Administration Protocol 1 MCG/KG/HR Propofol 1,000 mg in 100 mls @ 2.449 mls/hr 05/05/21 16:00 05/09/21 06:16 Diprivan 10 Mg/Ml IV 20 mcg/kg/min TITR RISHI 9.798 mls/hr Administration Protocol 5 MCG/KG/MIN Sodium Chloride 1,000 mls @ 75 mls/hr 05/07/21 14:00 05/11/21 04:42 Nacl 0.45% 1000 Ml IV 75 mls/hr DIRECT RISHI Administration Ceftriaxone Sodium 2 gm in 100 mls @ 200 mls/hr 05/10/21 16:00 05/10/21 18:41 Rocephin/Ns 2 Gm/100 Ml IV 05/11/21 16:29 200 mls/hr Q24H RISHI Administration Protocol Insulin Human Lispro 0 unit 05/10/21 09:40 05/10/21 19:12 Insulin Lispro 100 Unit/Ml SUB-Q 2 unit Q6HR PRN Administration Hyperglycemia Protocol Metoprolol Tartrate 50 mg 05/10/21 14:00 05/11/21 08:44 Metoprolol Tartrate 50 Mg Tab FEEDTUBE 50 mg TID RISHI Administration Multi-Ingred Cream/Lotion/Oil/Oint 1 applic 05/05/21 15:21 Mineral Oil/Petrolatum, White Ophth Oint 3.5 Gm OU Q4HR PRN Dry Eye(s) Ondansetron HCl 4 mg 05/04/21 12:34 05/04/21 21:51 Ondansetron 4 Mg/2 Ml Inj IV 4 mg Q8H PRN Administration Nausea And Vomiting Quetiapine Fumarate 200 mg 05/09/21 22:00 05/11/21 09:04 Quetiapine 200 Mg Tab PO 200 mg BID RISHI Administration Senna/Docusate Sodium 1 tab 05/05/21 22:00 05/11/21 09:04 Sennosides/Docusate Sodium 8.6/50 Mg Tab FEEDTUBE 1 tab BID RISHI Administration Sodium Chloride 10 ml 05/04/21 22:00 05/11/21 09:04 Sodium Chloride 0.9% 10 Ml Flush Syringe IV 10 ml BID RISHI Administration Sodium Chloride 10 ml 05/04/21 12:34 05/06/21 13:59 Sodium Chloride 0.9% 10 Ml Flush Syringe IV 10 ml PRN PRN Administration LINE FLUSH Sodium Chloride 10 ml 05/09/21 09:46 Sodium Chloride 0.9% 50 Ml Ivpb IV PRN PRN FLUSH
--- NOTE | 2021-05-11 11:56 | Progress Note ---
Assessment and Plan Acute hypoxic resp failure on MVS COVID positive NSTEMI Acute kidney injury Cardiomyopathy EF 35-40% History of hepatitis C Elevated D-dimer. Low probability for PE seen on VQ scan Tobacco abuse Polysubstance abusepatient with positive methamphetamines and has a history of cocaine use Anemia - add Scheduled Librium to spare IV sedation (75mg po q8h) - VTE w/up; lower extremity dopplers today - f/up cultures re: fevers (? VTE) - continue Seroquel to 300 mg p.o. bid - continue to adjust anxiolytics / CIWA protocol - continue care as below otherwise; - Daily SAT and SBT assessment as tolerated - continue to wean supplemental oxygen for target O2 sat's > 90% acutely - VAP bundle addressed - continue lung protective strategies - continue bronchodilators with pulmonary hygiene per RT - wean per pulmonary driven protocols otherwise - avoid nephrotoxins, renally dose all medications - AB's per ID recommendations - continue accuchecks with glycemic control per SSI (While critically ill target blood glucose of 140-180 mg/dL; avoid hypoglycemia) - sedation prn for target RASS 0 to -1 - continue to avoid benzodiazepine's, reduce the possibility of delirium - prn analgesia per CPOT score - Maintenance of sleep-wake cycle, avoid delirium - continue enteral nutritional support at goal rate as tolerated - G.I. & VTE prophylaxis - PT/OT/ROM exercises - continue mobility protocols for pressure ulcer prophylaxis - Monitor hemodynamics closely - continue other care per attending / other consultants - discharge planning ongoing concurrently COVID SPECIFIC INTERVENTIONS - Appears to have incidental COVID infection- Remdesivir not administered secondary to renal failure - continue systemic steroids for severe COVID-19 infection empirically (Dexamethasone) - follow repeat COVID tests results - zinc and vitamin C supplementation - Monitor inflammatory markers per facility protocol - ferritin, Ddimer, CRP - therapeutic anticoagulation per system Protocol based on d-dimer and clinical considerations (on therapeutic heparin for NSTEMI) - Continue contact and airborne isolation .... Re-evaluate in am & prn CONDITION: CRITICAL PROGNOSIS: GUARDED CODE STATUS: FULL CODE The high probability of a clinically significant, sudden or life-threatening deterioration of the [respiratory, cardiovascular & neurologic] system(s) required my full and direct attention, intervention and personal management. The aggregate critical care time was [35] minutes without overlap. Time includes spent on; [x] Data Review and interpretation [x] Patient assessment and monitoring of vital signs [x] Documentation [x] Medication orders and management Subjective Date of service: 05/11/21 Principal diagnosis: AHRF; COVID-19 infection; NSTEMI; YE; HFrEF (35-40%); Polysubstance abuse Interval history: Patient is seen today for: Acute hypoxemic Resp failure; COVID-19 infection; NSTEMI; YE; HFrEF (35-40%); Polysubstance abuse; Anemia Seen and examined at bedside; 24hour events reviewed; nursing and respiratory care staff consulted; no adverse overnight events reported to me; resting in bed; remains on MVS; placed on SBT now but work of breathing significantly increased; remains in withdrawal; no emesis or overt aspiration Objective Vital Signs - 12hr 05/11/21 05/11/21 05/11/21 00:00 00:06 00:30 Temperature 100.7 F H Pulse Rate 80 79 80 Pulse Rate [ From Monitor] Pulse Rate [ Left Radial] Pulse Rate [ Right Radial] Respiratory 16 20 22 Rate Blood Pressure 116/84 116/84 119/85 O2 Sat by Pulse 99 99 98 Oximetry 05/11/21 05/11/21 05/11/21 01:00 01:30 02:00 Temperature Pulse Rate 79 82 82 Pulse Rate [ 80 From Monitor] Pulse Rate [ 80 Left Radial] Pulse Rate [ 80 Right Radial] Respiratory 21 15 20 Rate Blood Pressure 119/85 120/90 123/91 O2 Sat by Pulse 98 99 Oximetry 05/11/21 05/11/21 05/11/21 02:30 03:00 03:30 Temperature Pulse Rate 82 82 83 Pulse Rate [ From Monitor] Pulse Rate [ Left Radial] Pulse Rate [ Right Radial] Respiratory 18 17 20 Rate Blood Pressure 121/88 125/92 127/94 O2 Sat by Pulse 98 Oximetry 05/11/21 05/11/21 05/11/21 04:00 04:30 04:43 Temperature 101.2 F H Pulse Rate 82 91 H 86 Pulse Rate [ From Monitor] Pulse Rate [ Left Radial] Pulse Rate [ Right Radial] Respiratory 17 25 H Rate Blood Pressure 131/95 132/92 132/92 O2 Sat by Pulse 100 100 100 Oximetry 05/11/21 05/11/21 05/11/21 05:00 05:30 06:00 Temperature Pulse Rate 89 87 87 Pulse Rate [ 80 From Monitor] Pulse Rate [ 80 Left Radial] Pulse Rate [ 80 Right Radial] Respiratory 19 16 15 Rate Blood Pressure 135/96 137/98 139/101 O2 Sat by Pulse 96 100 Oximetry 05/11/21 05/11/21 05/11/21 06:30 06:34 07:00 Temperature Pulse Rate 89 92 H 89 Pulse Rate [ From Monitor] Pulse Rate [ Left Radial] Pulse Rate [ Right Radial] Respiratory 21 20 Rate Blood Pressure 142/105 142/105 142/100 O2 Sat by Pulse 98 Oximetry 05/11/21 05/11/21 05/11/21 07:08 07:21 07:30 Temperature 102.3 F H Pulse Rate 87 91 H Pulse Rate [ From Monitor] Pulse Rate [ Left Radial] Pulse Rate [ Right Radial] Respiratory 27 H Rate Blood Pressure 134/96 141/103 O2 Sat by Pulse 98 98 Oximetry 05/11/21 05/11/21 05/11/21 08:00 08:30 09:00 Temperature Pulse Rate 88 91 H 91 H Pulse Rate [ From Monitor] Pulse Rate [ Left Radial] Pulse Rate [ Right Radial] Respiratory 21 23 22 Rate Blood Pressure 140/99 150/106 152/109 O2 Sat by Pulse 98 Oximetry 05/11/21 05/11/21 05/11/21 09:30 10:00 10:30 Temperature Pulse Rate 77 80 82 Pulse Rate [ 80 From Monitor] Pulse Rate [ 80 Left Radial] Pulse Rate [ 80 Right Radial] Respiratory 17 18 19 Rate Blood Pressure 152/109 110/83 120/88 O2 Sat by Pulse 99 100 100 Oximetry 05/11/21 05/11/21 11:26 11:44 Temperature 10.3 F L Pulse Rate 86 Pulse Rate [ From Monitor] Pulse Rate [ Left Radial] Pulse Rate [ Right Radial] Respiratory 22 Rate Blood Pressure 128/93 O2 Sat by Pulse 97 Oximetry Constitutional: no acute distress (sedate), other (orally intuabted, sedated; normal respiratory effort at rest) Eyes: non-icteric ENT: oropharynx moist Neck: supple, no lymphadenopathy, no JVD Effort: normal Ascultation: Bilateral: clear, diminished breath sounds Percussion: Bilateral: not dull Cardiovascular: irregular rhythm, other (S1,S2) Gastrointestinal: normoactive bowel sounds, soft, non-tender, non-distended Integumentary: normal Extremities: no cyanosis, no edema, pulses normal, no ischemia or petechiae Neurologic: non-focal exam, pupils equal and round, CN II-XII normal, motor strength normal and Psychiatric: other (sedated) CBC and BMP: 05/11/21 06:53 05/11/21 06:53 ABG, PT/INR, D-dimer: ABG ABG pH 7.449 pH Units (7.350-7.450) 05/10/21 Unknown ABG pCO2 33.7 mm Hg 05/10/21 Unknown ABG pO2 126.6 mm Hg (80.0-90.0) H 05/10/21 Unknown ABG O2 Saturation 98.6 % (95.0-99.0) 05/10/21 Unknown PT/INR, D-dimer PT 15.1 Sec. (12.2-14.9) H 05/04/21 07:25 INR 1.07 (0.87-1.13) 05/04/21 07:25 D-Dimer 1546.78 ng/mlDDU (0-234) H 05/10/21 04:57 Abnormal lab findings: Abnormal Labs 05/04/21 05/04/21 05/04/21 07:25 07:25 07:25 WBC 12.9 H RBC 3.04 L Hgb 9.5 L Hct 28.4 L MCV RDW 15.4 H Lymph % (Auto) 11.4 L Major % (Auto) 10.1 H Lymph # (Auto) Major # (Auto) 1.3 H Seg Neutrophils % 78.0 H Seg Neutrophils # 10.0 H PT 15.1 H D-Dimer Heparin Anti-Xa Level ABG pH ABG pO2 ABG Base Excess ABG Hemoglobin Sodium 135 L Potassium Chloride Carbon Dioxide BUN 65 H Creatinine 3.4 H Glucose 118 H POC Glucose Ferritin Total Bilirubin 1.50 H AST 519 H ALT 475 H Lactate Dehydrogenase Total Creatine Kinase Troponin T 1.300 H* C-Reactive Protein Albumin Urine WBC (Auto) Urine Creatinine Urine Total Protein Complement C3 Coronavirus (PCR) Hepatitis C Antibody 05/04/21 05/04/21 05/04/21 07:25 08:42 08:42 WBC RBC Hgb Hct MCV RDW Lymph % (Auto) Major % (Auto) Lymph # (Auto) Major # (Auto) Seg Neutrophils % Seg Neutrophils # PT D-Dimer 579.49 H Heparin Anti-Xa Level ABG pH ABG pO2 ABG Base Excess ABG Hemoglobin Sodium Potassium Chloride Carbon Dioxide BUN Creatinine Glucose POC Glucose Ferritin Total Bilirubin AST ALT Lactate Dehydrogenase Total Creatine Kinase 406 H Troponin T 1.230 H* C-Reactive Protein Albumin Urine WBC (Auto) Urine Creatinine Urine Total Protein Complement C3 Coronavirus (PCR) Hepatitis C Antibody 05/04/21 05/04/21 05/04/21 10:13 13:34 18:14 WBC RBC Hgb 8.8 L Hct 26.6 L MCV RDW Lymph % (Auto) Major % (Auto) Lymph # (Auto) Major # (Auto) Seg Neutrophils % Seg Neutrophils # PT D-Dimer Heparin Anti-Xa Level < 0.10 L ABG pH ABG pO2 ABG Base Excess ABG Hemoglobin Sodium Potassium Chloride Carbon Dioxide BUN Creatinine Glucose POC Glucose Ferritin Total Bilirubin AST ALT Lactate Dehydrogenase Total Creatine Kinase Troponin T 1.400 H* C-Reactive Protein Albumin Urine WBC (Auto) Urine Creatinine Urine Total Protein Complement C3 Coronavirus (PCR) Hepatitis C Antibody 05/05/21 05/05/21 05/05/21 03:40 03:40 03:40 WBC RBC Hgb Hct MCV RDW Lymph % (Auto) Major % (Auto) Lymph # (Auto) Major # (Auto) Seg Neutrophils % Seg Neutrophils # PT D-Dimer Heparin Anti-Xa Level 0.11 L ABG pH ABG pO2 ABG Base Excess ABG Hemoglobin Sodium Potassium 3.3 L Chloride Carbon Dioxide BUN 59 H Creatinine 2.6 H Glucose 139 H POC Glucose Ferritin Total Bilirubin AST ALT Lactate Dehydrogenase Total Creatine Kinase Troponin T C-Reactive Protein Albumin Urine WBC (Auto) Urine Creatinine Urine Total Protein Complement C3 Coronavirus (PCR) Hepatitis C Antibody Reactive A 05/05/21 05/05/21 05/05/21 03:40 08:30 09:57 WBC RBC Hgb Hct MCV RDW Lymph % (Auto) Major % (Auto) Lymph # (Auto) Major # (Auto) Seg Neutrophils % Seg Neutrophils # PT D-Dimer Heparin Anti-Xa Level ABG pH ABG pO2 ABG Base Excess ABG Hemoglobin Sodium Potassium Chloride Carbon Dioxide BUN Creatinine Glucose POC Glucose Ferritin Total Bilirubin AST ALT Lactate Dehydrogenase Total Creatine Kinase Troponin T C-Reactive Protein Albumin Urine WBC (Auto) Urine Creatinine 100.8 H Urine Total Protein Complement C3 72 L Coronavirus (PCR) Positive A Hepatitis C Antibody 05/05/21 05/05/21 05/05/21 11:28 17:00 19:51 WBC RBC Hgb Hct MCV RDW Lymph % (Auto) Major % (Auto) Lymph # (Auto) Major # (Auto) Seg Neutrophils % Seg Neutrophils # PT D-Dimer Heparin Anti-Xa Level 0.10 L 0.22 L ABG pH 7.304 L ABG pO2 140.8 H ABG Base Excess -2.1 L ABG Hemoglobin 10.2 L Sodium Potassium Chloride Carbon Dioxide BUN Creatinine Glucose POC Glucose Ferritin Total Bilirubin AST ALT Lactate Dehydrogenase Total Creatine Kinase Troponin T C-Reactive Protein Albumin Urine WBC (Auto) Urine Creatinine Urine Total Protein Complement C3 Coronavirus (PCR) Hepatitis C Antibody 05/06/21 05/06/21 05/06/21 03:47 06:15 17:53 WBC RBC Hgb 9.0 L Hct 27.8 L MCV RDW Lymph % (Auto) Major % (Auto) Lymph # (Auto) Major # (Auto) Seg Neutrophils % Seg Neutrophils # PT D-Dimer Heparin Anti-Xa Level 0.10 L ABG pH ABG pO2 143.5 H ABG Base Excess -2.4 L ABG Hemoglobin 6.9 L Sodium Potassium Chloride Carbon Dioxide BUN Creatinine Glucose POC Glucose Ferritin Total Bilirubin AST ALT Lactate Dehydrogenase Total Creatine Kinase Troponin T C-Reactive Protein Albumin Urine WBC (Auto) Urine Creatinine Urine Total Protein Complement C3 Coronavirus (PCR) Hepatitis C Antibody 05/07/21 05/07/21 05/07/21 00:07 03:22 03:45 WBC RBC Hgb Hct MCV RDW Lymph % (Auto) Major % (Auto) Lymph # (Auto) Major # (Auto) Seg Neutrophils % Seg Neutrophils # PT D-Dimer Heparin Anti-Xa Level < 0.10 L ABG pH ABG pO2 104.3 H ABG Base Excess -2.6 L ABG Hemoglobin 9.1 L Sodium Potassium Chloride 107.1 H Carbon Dioxide 20 L BUN 56 H Creatinine 2.9 H Glucose POC Glucose Ferritin Total Bilirubin AST ALT Lactate Dehydrogenase Total Creatine Kinase Troponin T C-Reactive Protein Albumin Urine WBC (Auto) Urine Creatinine Urine Total Protein Complement C3 Coronavirus (PCR) Hepatitis C Antibody 05/07/21 05/07/21 05/07/21 07:44 16:28 22:41 WBC RBC Hgb Hct MCV RDW Lymph % (Auto) Major % (Auto) Lymph # (Auto) Major # (Auto) Seg Neutrophils % Seg Neutrophils # PT D-Dimer Heparin Anti-Xa Level < 0.10 L 0.10 L < 0.10 L ABG pH ABG pO2 ABG Base Excess ABG Hemoglobin Sodium Potassium Chloride Carbon Dioxide BUN Creatinine Glucose POC Glucose Ferritin Total Bilirubin AST ALT Lactate Dehydrogenase Total Creatine Kinase Troponin T C-Reactive Protein Albumin Urine WBC (Auto) Urine Creatinine Urine Total Protein Complement C3 Coronavirus (PCR) Hepatitis C Antibody 05/08/21 05/08/21 05/08/21 03:25 04:34 07:30 WBC 12.4 H RBC 3.02 L Hgb 9.5 L Hct 29.2 L MCV 97 H RDW 16.7 H Lymph % (Auto) 8.1 L Major % (Auto) 11.0 H Lymph # (Auto) 1.0 L Major # (Auto) 1.4 H Seg Neutrophils % 80.1 H Seg Neutrophils # 9.9 H PT D-Dimer Heparin Anti-Xa Level ABG pH ABG pO2 139.0 H ABG Base Excess ABG Hemoglobin 8.8 L Sodium Potassium Chloride 110.5 H Carbon Dioxide BUN 59 H Creatinine 2.8 H Glucose 103 H POC Glucose Ferritin Total Bilirubin AST ALT 327 H Lactate Dehydrogenase Total Creatine Kinase Troponin T C-Reactive Protein Albumin 3.1 L Urine WBC (Auto) Urine Creatinine Urine Total Protein Complement C3 Coronavirus (PCR) Hepatitis C Antibody 05/09/21 05/09/21 05/09/21 04:10 04:20 04:20 WBC 11.7 H RBC 2.79 L Hgb 8.7 L Hct 26.5 L MCV 95 H RDW 16.2 H Lymph % (Auto) Major % (Auto) Lymph # (Auto) Major # (Auto) Seg Neutrophils % Seg Neutrophils # PT D-Dimer Heparin Anti-Xa Level ABG pH ABG pO2 161.6 H ABG Base Excess ABG Hemoglobin 8.3 L Sodium 151 H Potassium Chloride 114.5 H Carbon Dioxide 21 L BUN 57 H Creatinine 2.4 H Glucose POC Glucose Ferritin Total Bilirubin AST ALT 210 H Lactate Dehydrogenase Total Creatine Kinase Troponin T C-Reactive Protein Albumin 2.9 L Urine WBC (Auto) Urine Creatinine Urine Total Protein Complement C3 Coronavirus (PCR) Hepatitis C Antibody 05/09/21 05/09/21 05/09/21 09:48 09:48 13:22 WBC 11.6 H RBC 3.00 L Hgb 9.0 L Hct 28.4 L MCV RDW 15.9 H Lymph % (Auto) 5.9 L Major % (Auto) 8.9 H Lymph # (Auto) 0.7 L Major # (Auto) 1.0 H Seg Neutrophils % 84.3 H Seg Neutrophils # 9.8 H PT D-Dimer Heparin Anti-Xa Level ABG pH ABG pO2 ABG Base Excess ABG Hemoglobin Sodium Potassium Chloride Carbon Dioxide BUN Creatinine Glucose POC Glucose Ferritin Total Bilirubin AST ALT Lactate Dehydrogenase Total Creatine Kinase Troponin T C-Reactive Protein 8.70 H Albumin Urine WBC (Auto) 25.0 H Urine Creatinine Urine Total Protein Complement C3 Coronavirus (PCR) Hepatitis C Antibody 05/09/21 05/09/21 05/10/21 15:20 18:16 04:57 WBC RBC 2.87 L Hgb 8.8 L Hct 27.0 L MCV RDW 15.9 H Lymph % (Auto) Major % (Auto) Lymph # (Auto) Major # (Auto) Seg Neutrophils % Seg Neutrophils # PT D-Dimer Heparin Anti-Xa Level ABG pH ABG pO2 102.0 H ABG Base Excess -2.8 L ABG Hemoglobin 9.0 L Sodium Potassium Chloride Carbon Dioxide BUN Creatinine Glucose POC Glucose 130 H Ferritin Total Bilirubin AST ALT Lactate Dehydrogenase Total Creatine Kinase Troponin T C-Reactive Protein Albumin Urine WBC (Auto) Urine Creatinine Urine Total Protein Complement C3 Coronavirus (PCR) Hepatitis C Antibody 05/10/21 05/10/21 05/10/21 04:57 04:57 04:57 WBC RBC Hgb Hct MCV RDW Lymph % (Auto) Major % (Auto) Lymph # (Auto) Major # (Auto) Seg Neutrophils % Seg Neutrophils # PT D-Dimer 1546.78 H Heparin Anti-Xa Level ABG pH ABG pO2 ABG Base Excess ABG Hemoglobin Sodium 148 H Potassium Chloride 114.9 H Carbon Dioxide 21 L BUN 57 H Creatinine 2.3 H Glucose 157 H POC Glucose Ferritin 888.2 H Total Bilirubin AST ALT Lactate Dehydrogenase 289 H Total Creatine Kinase Troponin T C-Reactive Protein 6.80 H Albumin Urine WBC (Auto) Urine Creatinine Urine Total Protein Complement C3 Coronavirus (PCR) Hepatitis C Antibody 05/10/21 05/10/21 05/10/21 05:09 08:04 11:03 WBC RBC Hgb Hct MCV RDW Lymph % (Auto) Major % (Auto) Lymph # (Auto) Major # (Auto) Seg Neutrophils % Seg Neutrophils # PT D-Dimer Heparin Anti-Xa Level ABG pH 7.473 H ABG pO2 114.6 H ABG Base Excess ABG Hemoglobin 9.5 L Sodium Potassium Chloride Carbon Dioxide BUN Creatinine Glucose POC Glucose 152 H Ferritin Total Bilirubin AST ALT Lactate Dehydrogenase Total Creatine Kinase Troponin T C-Reactive Protein Albumin Urine WBC (Auto) Urine Creatinine 100.8 H Urine Total Protein 42 H Complement C3 Coronavirus (PCR) Hepatitis C Antibody 05/10/21 05/10/21 05/10/21 13:07 18:01 23:31 WBC RBC Hgb Hct MCV RDW Lymph % (Auto) Major % (Auto) Lymph # (Auto) Major # (Auto) Seg Neutrophils % Seg Neutrophils # PT D-Dimer Heparin Anti-Xa Level ABG pH ABG pO2 ABG Base Excess ABG Hemoglobin Sodium Potassium Chloride Carbon Dioxide BUN Creatinine Glucose POC Glucose 150 H 189 H 142 H Ferritin Total Bilirubin AST ALT Lactate Dehydrogenase Total Creatine Kinase Troponin T C-Reactive Protein Albumin Urine WBC (Auto) Urine Creatinine Urine Total Protein Complement C3 Coronavirus (PCR) Hepatitis C Antibody 05/10/21 05/11/21 05/11/21 Unknown 05:25 06:53 WBC RBC Hgb Hct MCV RDW Lymph % (Auto) Major % (Auto) Lymph # (Auto) Major # (Auto) Seg Neutrophils % Seg Neutrophils # PT D-Dimer Heparin Anti-Xa Level ABG pH ABG pO2 126.6 H ABG Base Excess ABG Hemoglobin 9.2 L Sodium 150 H Potassium Chloride 116.6 H Carbon Dioxide 21 L BUN 62 H Creatinine 2.5 H Glucose 142 H POC Glucose 163 H Ferritin Total Bilirubin AST ALT Lactate Dehydrogenase Total Creatine Kinase Troponin T C-Reactive Protein Albumin Urine WBC (Auto) Urine Creatinine Urine Total Protein Complement C3 Coronavirus (PCR) Hepatitis C Antibody 05/11/21 05/11/21 06:53 11:06 WBC RBC 3.07 L Hgb 9.3 L Hct 29.0 L MCV 95 H RDW 16.1 H Lymph % (Auto) Major % (Auto) Lymph # (Auto) Major # (Auto) Seg Neutrophils % Seg Neutrophils # PT D-Dimer Heparin Anti-Xa Level ABG pH ABG pO2 ABG Base Excess ABG Hemoglobin Sodium Potassium Chloride Carbon Dioxide BUN Creatinine Glucose POC Glucose 145 H Ferritin Total Bilirubin AST ALT Lactate Dehydrogenase Total Creatine Kinase Troponin T C-Reactive Protein Albumin Urine WBC (Auto) Urine Creatinine Urine Total Protein Complement C3 Coronavirus (PCR) Hepatitis C Antibody Allied health notes reviewed: nursing
--- NOTE | 2021-05-11 13:11 | Progress Note ---
Assessment and Plan Cultures: Blood culture 05/07/2021 no growth so far Blood culture 05/10/2021 no growth so far A/P: 56 yo M PMHx smoking, a fin, HTN, medication non-compliance #Severe COVID-19 pneumonia: Patient presented with a week of symptoms, chest x-r ay with diffuse bilateral infiltrates, admission O2 sats decreased on room air. Inflammatory markers elevated #Acute hypoxemic respiratory failure: Likely secondary to COVID-19 infection. Currently on the vent #YE: Renally dose medications Recommendations: -Dexamethasone 6 mg IV/PO daily for 10 days -Not a candidate for remdesivir -Obtain q48-72h inflammatory markers - ferritin, Ddimer, CRP, LDH -Procal mildly elevated, though in the setting of YE. Started ceftriaxone 2g q24h for 5 days -If ongoing fevers tomorrow will escalate to cefepime. -Anticoagulation per hospital protocol -Proning as able Thank you for the consult, we will continue to follow. Roque Bacon MD [facility] O: [phone] F: [phone] Subjective Date of service: 05/11/21 Principal diagnosis: AHRF; COVID-19 infection; NSTEMI; YE; HFrEF (35-40%); Polysubstance abuse Interval history: Remains persistently febrile, normal white count. Blood cultures are remain no growth. Remains on the vent. Imaging personally reviewed: Chest x-ray: Increased density in the right lower lung. Objective - Exam Narrative Exam: Physical exam deferred to reduce risk of transmission of COVID-19. Please refer to primary team's note. - Constitutional Vitals: Vital Signs Temp Pulse Resp BP Pulse Ox 10.3 F L 89 17 122/94 98 05/11/21 11:26 05/11/21 12:00 05/11/21 12:00 05/11/21 12:00 05/11/21 12:00 Temperature -Last 24 Hours Temperature 10.3 F Temperature 102.3 F Temperature 101.2 F Temperature 100.7 F Temperature 102.0 F Temperature 100.6 F - Labs CBC & Chem 7: 05/11/21 06:53 05/11/21 06:53 Labs: Abnormal lab results 05/05/21 05/10/21 05/10/21 Range/Units 09:57 11:03 13:07 RBC (3.65-5.03) M/mm3 Hgb (11.8-15.2) gm/dl Hct (35.5-45.6) % MCV (84-94) fl RDW (13.2-15.2) % ABG pO2 (80.0-90.0) mm Hg ABG Hemoglobin (14.0-18.0) gm/dl Sodium (137-145) mmol/L Chloride (98-107) mmol/L Carbon Dioxide (22-30) mmol/L BUN (9-20) mg/dL Creatinine (0.8-1.3) mg/dL Glucose (75-100) mg/dL POC Glucose 150 H (70-105) mg/dL Urine Creatinine 100.8 H 100.8 H (0.1-20.0) mg/dL Urine Total Protein 42 H (5-11.8) mg/dL 05/10/21 05/10/21 05/10/21 Range/Units 18:01 23:31 Unknown RBC (3.65-5.03) M/mm3 Hgb (11.8-15.2) gm/dl Hct (35.5-45.6) % MCV (84-94) fl RDW (13.2-15.2) % ABG pO2 126.6 H (80.0-90.0) mm Hg ABG Hemoglobin 9.2 L (14.0-18.0) gm/dl Sodium (137-145) mmol/L Chloride (98-107) mmol/L Carbon Dioxide (22-30) mmol/L BUN (9-20) mg/dL Creatinine (0.8-1.3) mg/dL Glucose (75-100) mg/dL POC Glucose 189 H 142 H (70-105) mg/dL Urine Creatinine (0.1-20.0) mg/dL Urine Total Protein (5-11.8) mg/dL 05/11/21 05/11/21 05/11/21 Range/Units 05:25 06:53 06:53 RBC 3.07 L (3.65-5.03) M/mm3 Hgb 9.3 L (11.8-15.2) gm/dl Hct 29.0 L (35.5-45.6) % MCV 95 H (84-94) fl RDW 16.1 H (13.2-15.2) % ABG pO2 (80.0-90.0) mm Hg ABG Hemoglobin (14.0-18.0) gm/dl Sodium 150 H (137-145) mmol/L Chloride 116.6 H (98-107) mmol/L Carbon Dioxide 21 L (22-30) mmol/L BUN 62 H (9-20) mg/dL Creatinine 2.5 H (0.8-1.3) mg/dL Glucose 142 H (75-100) mg/dL POC Glucose 163 H (70-105) mg/dL Urine Creatinine (0.1-20.0) mg/dL Urine Total Protein (5-11.8) mg/dL 05/11/21 Range/Units 11:06 RBC (3.65-5.03) M/mm3 Hgb (11.8-15.2) gm/dl Hct (35.5-45.6) % MCV (84-94) fl RDW (13.2-15.2) % ABG pO2 (80.0-90.0) mm Hg ABG Hemoglobin (14.0-18.0) gm/dl Sodium (137-145) mmol/L Chloride (98-107) mmol/L Carbon Dioxide (22-30) mmol/L BUN (9-20) mg/dL Creatinine (0.8-1.3) mg/dL Glucose (75-100) mg/dL POC Glucose 145 H (70-105) mg/dL Urine Creatinine (0.1-20.0) mg/dL Urine Total Protein (5-11.8) mg/dL
--- NOTE | 2021-05-11 13:13 | Progress Note ---
Assessment and Plan Patient is a 56-year-old male with a past medical history of hypertension, paroxysmal SVT, medical noncompliance, smoking, substance abuse who presented to the ED with a complaint of shortness of breath and dyspnea on exertion x1 month however with significantly worsening symptoms since yesterday. NSTEMI Hypertensive Emergency COVID-19 YE Hepatitis C SOB Medical noncompliance Polysubstance abuse-patient tested positive for methamphetamines Echo 05/04/2021-EF 35 to 40%. Moderate concentric LVH. Moderate global hypokinesis of left ventricle. Mild mitral regurgitation. Mild pulmonary hypertension. Echocardiogram reviewed (08/27/2020): LVEF is 50 to 55%. Mild to moderate concentric LVF. Severe diastolic dysfunction is present (restrictive filling). Right ventricle is mildly hypokinetic. RVSP is 48 mmHg. No valvular abnormalities. Plan: Continue statin therapy Continue medical management. Heparin subcu for DVT prophylaxis Continue metoprolol tartrate 50 mg p.o. 3 times daily Anticoagulation not indicated due to transient episode of A. fib Patient seen in conjunction with Dr. Carpenter who agrees with this plan of care - Patient Problems (1) ARF (acute renal failure) Current Visit: Yes Status: Acute (2) Elevated d-dimer Current Visit: Yes Status: Acute (3) LFT elevation Current Visit: Yes Status: Acute (4) NSTEMI (non-ST elevated myocardial infarction) Current Visit: Yes Status: Acute (5) Polysubstance abuse Current Visit: Yes Status: Acute (6) SOB (shortness of breath) Current Visit: Yes Status: Acute (7) Hypertension Current Visit: Yes Status: Chronic (8) Noncompliance with medication regimen Current Visit: Yes Status: Chronic Subjective Date of service: 05/11/21 Principal diagnosis: AHRF; COVID-19 infection; NSTEMI; YE; HFrEF (35-40%); Polysubstance abuse Interval history: Patient remained intubated and sedated Patient remains sinus rhythm on monitor with no event Objective Vital Signs Temp Pulse Pulse Pulse Pulse Resp BP 05/11/21 12:00 89 17 122/94 05/11/21 11:44 86 22 128/93 05/11/21 11:30 85 19 128/93 05/11/21 11:26 10.3 F L 05/11/21 11:00 83 20 121/89 05/11/21 10:30 82 19 120/88 05/11/21 10:00 80 80 80 80 18 110/83 05/11/21 09:30 77 17 152/109 05/11/21 09:00 91 H 22 152/109 05/11/21 08:30 91 H 23 150/106 05/11/21 08:00 88 21 140/99 05/11/21 07:30 91 H 27 H 141/103 05/11/21 07:21 87 134/96 05/11/21 07:08 102.3 F H 05/11/21 07:00 89 20 142/100 05/11/21 06:34 92 H 142/105 05/11/21 06:30 89 21 142/105 05/11/21 06:00 87 80 80 80 15 139/101 05/11/21 05:30 87 16 137/98 05/11/21 05:00 89 19 135/96 05/11/21 04:43 86 132/92 05/11/21 04:30 91 H 25 H 132/92 05/11/21 04:00 101.2 F H 82 17 131/95 05/11/21 03:30 83 20 127/94 05/11/21 03:00 82 17 125/92 05/11/21 02:30 82 18 121/88 05/11/21 02:00 82 80 80 80 20 123/91 05/11/21 01:30 82 15 120/90 05/11/21 01:00 79 21 119/85 05/11/21 00:30 80 22 119/85 05/11/21 00:06 79 20 116/84 05/11/21 00:00 100.7 F H 80 16 116/84 05/10/21 23:30 78 15 109/81 05/10/21 23:00 79 14 109/79 05/10/21 22:30 75 18 111/81 05/10/21 22:00 78 80 80 80 22 118/85 05/10/21 21:57 05/10/21 21:31 80 125/94 05/10/21 21:30 80 16 125/94 05/10/21 21:00 81 15 128/94 05/10/21 20:30 81 17 129/95 05/10/21 20:00 102.0 F H 82 20 127/96 05/10/21 19:30 81 21 131/95 05/10/21 19:00 84 23 135/100 05/10/21 18:30 81 17 125/92 05/10/21 18:00 81 80 80 80 18 132/95 05/10/21 17:30 81 25 H 134/96 05/10/21 17:23 81 25 H 134/95 05/10/21 17:00 82 22 138/96 05/10/21 16:30 79 32 H 133/95 05/10/21 16:04 81 12 138/97 05/10/21 16:00 100.6 F H 83 21 138/97 05/10/21 15:41 86 154/108 05/10/21 15:30 89 28 H 154/108 05/10/21 15:00 88 27 H 153/104 05/10/21 14:30 91 H 32 H 149/106 05/10/21 14:00 86 84 84 84 28 H 153/103 05/10/21 13:30 88 27 H 160/108 05/10/21 13:19 89 142/103 Pulse Ox 05/11/21 12:00 98 05/11/21 11:44 97 05/11/21 11:30 05/11/21 11:26 05/11/21 11:00 05/11/21 10:30 100 05/11/21 10:00 100 05/11/21 09:30 99 05/11/21 09:00 05/11/21 08:30 98 05/11/21 08:00 05/11/21 07:30 98 05/11/21 07:21 98 05/11/21 07:08 05/11/21 07:00 98 05/11/21 06:34 05/11/21 06:30 05/11/21 06:00 100 05/11/21 05:30 05/11/21 05:00 96 05/11/21 04:43 100 05/11/21 04:30 100 05/11/21 04:00 100 05/11/21 03:30 05/11/21 03:00 98 05/11/21 02:30 05/11/21 02:00 99 05/11/21 01:30 05/11/21 01:00 98 05/11/21 00:30 98 05/11/21 00:06 99 05/11/21 00:00 99 05/10/21 23:30 99 05/10/21 23:00 05/10/21 22:30 100 05/10/21 22:00 99 05/10/21 21:57 100 05/10/21 21:31 05/10/21 21:30 05/10/21 21:00 100 05/10/21 20:30 05/10/21 20:00 05/10/21 19:30 99 05/10/21 19:00 99 05/10/21 18:30 98 05/10/21 18:00 100 05/10/21 17:30 100 05/10/21 17:23 100 05/10/21 17:00 100 05/10/21 16:30 99 05/10/21 16:04 100 05/10/21 16:00 100 05/10/21 15:41 05/10/21 15:30 99 05/10/21 15:00 05/10/21 14:30 100 05/10/21 14:00 100 05/10/21 13:30 100 05/10/21 13:19 100 - Physical Examination General: Other (intubated and sedated) HEENT: Positive: PERRL Neck: Positive: trachea midline Cardiac: Positive: Reg Rate and Rhythm Lungs: Positive: Ventilated Respirations Neuro: Positive: Other (sedated) Abdomen: Positive: Soft Skin: Negative: Rash, Suspicious Lesions, Ulceration Extremities: Absent: edema - Labs and Meds CBC 05/11/21 Range/Units 06:53 WBC 11.0 (4.5-11.0) K/mm3 RBC 3.07 L (3.65-5.03) M/mm3 Hgb 9.3 L (11.8-15.2) gm/dl Hct 29.0 L (35.5-45.6) % Plt Count 307 (140-440) K/mm3 Comprehensive Metabolic Panel 05/11/21 Range/Units 06:53 Sodium 150 H (137-145) mmol/L Potassium 4.8 (3.6-5.0) mmol/L Chloride 116.6 H (98-107) mmol/L Carbon Dioxide 21 L (22-30) mmol/L BUN 62 H (9-20) mg/dL Creatinine 2.5 H (0.8-1.3) mg/dL Glucose 142 H (75-100) mg/dL Calcium 8.7 (8.4-10.2) mg/dL - Imaging and Cardiology EKG: report reviewed, image reviewed Echo: report reviewed - Telemetry EKG Rhythm: Sinus Rhythm - EKG Sinus rhythms and dysrhythmias: sinus rhythm Ventricular dysrhythmias: ventricular premature com Chamber hypertrophy or enlargement: left ventricular hypertro - Allied health notes Allied health notes reviewed: nursing
[2021-05-11] MEDS: FREE WATER PO SCH ×4 (14:00→23:31)
[2021-05-11] MEDS ORDERED: HEPARIN 10,000 UNITS/10 ML VIAL IV PRN (14:14)
[2021-05-11 14:17] LABS: ABG Base Excess -3.3 mmol/L (-2.0-3.0); ABG HCO3 20.3 mmol/L (20.0-26.0); ABG Methemoglobin 0.6 % (0.0-1.5); ABG PCO2 31.5 mm Hg; ABG PH 7.426 pH Units (7.350-7.450); ABG PO2 74.9 mm Hg (80.0-90.0)
--- NOTE | 2021-05-11 14:45 | Vascular Lab Report ---
DUPLEX DOPPLER LOWER EXTREMITY VEINS, BILATERAL INDICATION / CLINICAL INFORMATION: COVID 19. Acute respiratory failure. TECHNIQUE: Duplex doppler imaging was performed through the veins of both lower extremities using venous luis miguel mayela and other maneuvers. COMPARISON: None available. FINDINGS: RIGHT COMMON FEMORAL VEIN: Negative. RIGHT FEMORAL VEIN: Negative. RIGHT POPLITEAL VEIN: Negative. RIGHT CALF VEINS: Acute occlusive thrombus in the right peroneal veins. LEFT COMMON FEMORAL VEIN: Negative. LEFT FEMORAL VEIN: Negative. LEFT POPLITEAL VEIN: Negative. LEFT CALF VEINS: Negative. ADDITIONAL FINDINGS.: No abnormal mass or fluid collection is seen. IMPRESSION: Acute DVT in the right peroneal veins. The results were communicated to Dr. Paredes at 1415 hours by the histology technologist Signer Name: Anderson Harrison MD Signed: 05/11/2021 2:40 PM Workstation Name: [id number]
[2021-05-11 15:21] LABS: Hematocrit 29.7 % (35.5-45.6); Hemoglobin 9.2 gm/dl (11.8-15.2)
--- NOTE | 2021-05-11 15:33 | Progress Note ---
<DANIELVALENTIN MatteoChalino - Last Filed: 05/11/21 18:02> Assessment and Plan Assessment and plan: This is a 56-year-old male with nicotine and cocaine abuse, atrial fibrillation, hypertension and chronic medication noncompliance complicated by homelessness admitted with acute hypoxic respiratory failure, COVID-19 pneumonia, green saminitis, NSTEMI, hypertensive emergency and acute kidney injury A/P Acute hypoxic respiratory failure -CCM consulted, appreciate recommendations -Intubated on 05/05 with 7.50 ETT at 20 over the lips in the ED -A.m. vent setting: Assist-control rate 20, tidal volume 450, PEEP 6, FiO2 30% -ABG and CXR noted -See RT notes for titration -PSV again today but failed -VAP bundle -Continues SPO2 monitoring -Pulmonary perfusion study showed low probability of pulmonary embolism Severe COVID-19 pneumonia/leukocytosis -Infectious disease consulted, appreciate recommendation -COVID-19 PCR positive -Continue droplet/precautions -Not a candidate for remdesivir given acute kidney injury -Dexamethasone for 10 days -Anticoagulation per hospital protocol -Trend COVID-19 from 2 markers (ferritin, D-dimer, CRP, LDH) -Per ID: Given slightly elevated procalcitonin started on ceftriaxone for 2 days () -if fevers continue will escalate per ID -added vanco d/t Enterococcus in urine -Follow-up for speciation Acute DVT -Bilateral lower extremity Doppler ultrasound shows acute DVT -Started on heparin drip -No bolus -adjust per protocol Acute kidney injury likely secondary to vasomotor nephropathy -Nephrology consulted, appreciate recommendations -IVF per nephrology -Avoid nephrotoxic medications -Renally dose medication -Strict intake and output -FeNa indicates prerenal -Renal ultrasound completed: 1.7 hyper echoic mass within the left upper pole -Monitor follow-up with CT once stable Hypernatremia, hyperchloremia, metabolic acidosis -MIVF with half-normal saline -Trend sodium -Free water flush S/p hypertensive emergency, h/o HTN -Continue BB -Blood pressure monitor per protocol -Resume home antihypertensive regimen as tolerated Heart failure reduced EF, cardiomyopathy, NSTEMI, paroxysmal atrial fibrillation -Continue beta-sylvia and aspirin -Resume statin therapy -Cardiology consulted, appreciate recommendations -Echo 05/04/2021-EF 35 to 40%. Moderate concentric LVH. Moderate global hy pokinesis of left ventricle. Mild mitral regurgitation. Mild pulmonary hypertension. Echocardiogram reviewed (08/27/2020): LVEF is 50 to 55%. Mild to moderate concentric LVF. Severe diastolic dysfunction is present (restrictive filling). Right ventricle is mildly hypokinetic. RVSP is 48 mmHg. No valvular abnormalities. -S/p heparin drip for 24 hours -Patient had atrial fibrillation overnight on 05/10 and was treated with a Cardizem drip -Beta-sylvia increased Polysubstance abuse, tobacco abuse -UDS positive for amphetamines -We will need cessation counseling when appropriate Transaminitis, h/o hepatitis C -Renal ultrasound showed incidental finding of cholelithiasis -Trend LFTs -Continue supportive management Anemia -Trend CBC -Transfuse for hemoglobin less than 7 DVT/ GI prophylaxis -Heparin gtt -PPI The high probability of a clinically significant, sudden or life threatening deterioration of the [cardio/resp] system(s) required my full and direct attention, intervention and personal management. The aggregate critical care time was [60] minutes. This time is in addition to time spent performing reported procedures but includes the following: [x] Data Review and interpretation [x] Patient assessment and monitoring of vital signs [x] Documentation [x] Medication orders and management Disposition Plan: icu Total Time Spent with Patient (Minutes): 60 History Interval history: This is a 56-year-old male with a nicotine abuse, A. fib, hypertension, and chronic medication noncompliance and homelessness who presented to emergency department on 05/04 with complaints of dyspnea on exertion for the past month worsening over the past 3 days, intermittent left-sided chest tightness with activity, and persistent cough without fever. Work-up in the emergency department revealed anemia, hyponatremia, elevated BUN/creatinine and transaminitis. Patient was admitted to the hospitalist service with acute kidney injury and accelerated hypertension. Hospital course to date 05/04/2021. Cardiology was considering patient for Clinical Medical Assistant. However, patient with elevated creatinine therefore will hold off on cath evaluation. Nephrology consultation for acute kidney injury. Etiology likely secondary to vasomotor nephropathy/dehydration. We will start IV fluid hydration. Check renal ultrasound to rule out obstructive uropathy. We will resume home medications for the accelerated hypertension 05/05/2021. Echocardiogram reveals EF 35-40% with moderate concentric left ventricular hypertrophy. Moderate global hypokinesis of left ventricle. Mild mitral regurgitation. Mild pulmonary hypertension. Troponins are believed to be elevated in the setting of acute kidney injury. No beta-blockers due to cocaine use continue heparin and nitro drip. Continue CIWA protocol. Await urine studies 05/06/2021. Patient decompensated yesterday with worsening respiratory failure and difficulty to protect airway. Patient was breathing sonorously, and hypoxic. Patient was intubated and currently is on mechanical ventilation. Patient with AC mode ventilation rate of 20, tidal volume 450, FiO2 40% and PEEP of 6. COVID PCR testing on 05/05/2021 was found to be positive. Echocardiogram completed on this admission shows worsening EF from August 2020. Echocardiogram now reveals moderate concentric left ventricular hypertrophy with moderate wei bal hypokinesis and EF of 35-40%. Mild pulmonary hypertension. 05/08: Continue current management, renal stable, LFTs stable and if improved will start on statin therapy. 05/09: Patient is febrile, will panculture, PSV today. CRP pending. Mucoid discharge noted from meatus which was sent for culture. Hypernatremia persists, free water flushes increased 05/10: PSV trial per [facility], T-max 102.3, given mildly elevated procalcitonin started on ceftriaxone 2 g every 24 for 2 days per ID. Overnight patient had atrial fibrillation which was treated with Cardizem drip and converted to sinus rhythm. Metoprolol p.o. increased to 3 times daily. 05/11: Patient still running fevers and if still febrile tomorrow will escalate to cefepime per ID as he is currently on ceftriaxone, [facility] attempted PSV but patient became agitated and was switched back to pressure control. Lower extremity ultrasound shows acute DVT and started on heparin drip. Started on scheduled Librium. Patient remains with hypernatremia and elevated creatinine and on IV fluids. Free water flushes adjusted. Started on vancomycin today Hospitalist Physical - Physical exam Narrative exam: - EENT Eyes: Present: PERRL, EOM intact ENT: clear oral mucosa - Neck Neck: Present: normal ROM - Respiratory Respiratory effort: normal Respiratory: bilateral: diminished - Cardiovascular Rhythm: regular Heart Sounds: Present: S1 & S2 - Extremities Extremities: no ischemia, pulses intact, pulses symmetrical, normal temperature, normal color Peripheral Pulses: within normal limits - Abdominal General gastrointestinal: soft, non-tender, non-distended, normal bowel sounds - Integumentary Integumentary: Present: warm - Psychiatric Psychiatric: other (sedated) - Neurologic Neurologic: other (Intact cough/gag) - Allied Health Allied health notes reviewed: nursing, RT, social work - Constitutional Vitals: Temp Pulse Resp BP Pulse Ox 102.3 F H 80 17 132/93 94 05/11/21 12:00 05/11/21 14:30 05/11/21 14:30 05/11/21 14:30 05/11/21 14:00 General appearance: Present: no acute distress HEART Score - HEART Score EKG: Non-specific Age: 45-65 Risk factors: 1-2 risk factors Troponin: Troponin T 1.400 ng/mL (0.00-0.029) H* 05/04/21 13:34 Troponin: 1-3x normal limit - Critical Actions Critical Actions: 4-6 pts:12-16.6% risk of adverse cardiac event. Should be admitted Results - Labs CBC & Chem 7: 05/11/21 14:43 05/11/21 06:53 Labs: Laboratory Last Values WBC 11.0 K/mm3 (4.5-11.0) 05/11/21 06:53 RBC 3.07 M/mm3 (3.65-5.03) L 05/11/21 06:53 Hgb 9.2 gm/dl (11.8-15.2) L 05/11/21 14:43 Hct 29.7 % (35.5-45.6) L 05/11/21 14:43 MCV 95 fl (84-94) H 05/11/21 06:53 MCH 30 pg (28-32) 05/11/21 06:53 MCHC 32 % (32-34) 05/11/21 06:53 RDW 16.1 % (13.2-15.2) H 05/11/21 06:53 Plt Count 295 K/mm3 (140-440) 05/11/21 14:43 Lymph % (Auto) 5.9 % (13.4-35.0) L 05/09/21 09:48 Lincoln % (Auto) 8.9 % (0.0-7.3) H 05/09/21 09:48 Eos % (Auto) 0.4 % (0.0-4.3) 05/09/21 09:48 Baso % (Auto) 0.5 % (0.0-1.8) 05/09/21 09:48 Lymph # (Auto) 0.7 K/mm3 (1.2-5.4) L 05/09/21 09:48 Lincoln # (Auto) 1.0 K/mm3 (0.0-0.8) H 05/09/21 09:48 Eos # (Auto) 0.0 K/mm3 (0.0-0.4) 05/09/21 09:48 Baso # (Auto) 0.1 K/mm3 (0.0-0.1) 05/09/21 09:48 Seg Neutrophils % 84.3 % (40.0-70.0) H 05/09/21 09:48 Seg Neutrophils # 9.8 K/mm3 (1.8-7.7) H 05/09/21 09:48 PT 15.1 Sec. (12.2-14.9) H 05/04/21 07:25 INR 1.07 (0.87-1.13) 05/04/21 07:25 APTT 31.9 Sec. (24.2-36.6) 05/04/21 07:25 D-Dimer 1546.78 ng/mlDDU (0-234) H 05/10/21 04:57 Heparin Anti-Xa Level < 0.10 U.I./ml (0.3-0.7) L 05/07/21 22:41 ABG pH 7.426 pH Units (7.350-7.450) 05/11/21 13:51 ABG pCO2 31.5 mm Hg 05/11/21 13:51 ABG pO2 74.9 mm Hg (80.0-90.0) L 05/11/21 13:51 ABG HCO3 20.3 mmol/L (20.0-26.0) 05/11/21 13:51 ABG O2 Saturation 97.0 % (95.0-99.0) 05/11/21 13:51 ABG O2 Content 14.6 (0.0-44) 05/11/21 13:51 ABG Base Excess -3.3 mmol/L (-2.0-3.0) L 05/11/21 13:51 ABG Hemoglobin 10.8 gm/dl (14.0-18.0) L 05/11/21 13:51 ABG Carboxyhemoglobin 1.3 % (0.0-5.0) 05/11/21 13:51 ABG Methemoglobin 0.6 % (0.0-1.5) 05/11/21 13:51 Oxyhemoglobin 95.1 % (95.0-99.0) 05/11/21 13:51 FiO2 30 % 05/11/21 13:51 Sodium 150 mmol/L (137-145) H 05/11/21 06:53 Potassium 4.8 mmol/L (3.6-5.0) 05/11/21 06:53 Chloride 116.6 mmol/L (98-107) H 05/11/21 06:53 Carbon Dioxide 21 mmol/L (22-30) L 05/11/21 06:53 Anion Gap 17 mmol/L 05/11/21 06:53 BUN 62 mg/dL (9-20) H 05/11/21 06:53 Creatinine 2.5 mg/dL (0.8-1.3) H 05/11/21 06:53 Estimated GFR 27 ml/min 05/11/21 06:53 BUN/Creatinine Ratio 25 % 05/11/21 06:53 Glucose 142 mg/dL (75-100) H 05/11/21 06:53 POC Glucose 145 mg/dL (70-105) H 05/11/21 11:06 Calcium 8.7 mg/dL (8.4-10.2) 05/11/21 06:53 Magnesium 2.30 mg/dL (1.7-2.3) 05/10/21 04:57 Ferritin 888.2 ng/mL (30.0-300.0) H 05/10/21 04:57 Total Bilirubin 0.60 mg/dL (0.1-1.2) 05/09/21 04:20 AST 20 units/L (5-40) 05/09/21 04:20 ALT 210 units/L (7-56) H 05/09/21 04:20 Alkaline Phosphatase 58 units/L (35-129) 05/09/21 04:20 Lactate Dehydrogenase 289 units/L (91-180) H 05/10/21 04:57 Total Creatine Kinase 406 units/L (55-170) H 05/04/21 08:42 Troponin T 1.400 ng/mL (0.00-0.029) H* 05/04/21 13:34 C-Reactive Protein 6.80 mg/dL (0.00-1.30) H 05/10/21 04:57 Total Protein 6.3 g/dL (6.3-8.2) 05/09/21 04:20 Albumin 2.9 g/dL (3.9-5) L 05/09/21 04:20 Albumin/Globulin Ratio 0.9 % 05/09/21 04:20 Triglycerides 144 mg/dL (2-149) 05/10/21 04:57 Cholesterol 140 mg/dL (50-199) 05/04/21 07:25 LDL Cholesterol Direct 89 mg/dL (50-130) 05/04/21 07:25 HDL Cholesterol 48 mg/dL (40-59) 05/04/21 07:25 Cholesterol/HDL Ratio 2.91 % 05/04/21 07:25 Procalcitonin 0.63 ng/mL (<0.15) 05/09/21 15:53 Urine Color Yellow (Yellow) 05/09/21 13:22 Urine Turbidity Turbid (Clear) 05/09/21 13:22 Urine pH 5.0 (5.0-7.0) 05/09/21 13:22 Ur Specific Coram 1.018 (1.003-1.030) 05/09/21 13:22 Urine Protein 100 mg/dl mg/dL (Negative) 05/09/21 13:22 Urine Glucose (UA) Neg mg/dL (Negative) 05/09/21 13:22 Urine Ketones Tr mg/dL (Negative) 05/09/21 13:22 Urine Blood Mod (Negative) 05/09/21 13:22 Urine Nitrite Neg (Negative) 05/09/21 13:22 Urine Bilirubin Neg (Negative) 05/09/21 13:22 Urine Urobilinogen < 2.0 mg/dL (<2.0) 05/09/21 13:22 Ur Leukocyte Esterase Mod (Negative) 05/09/21 13:22 Urine WBC (Auto) 25.0 /HPF (0.0-6.0) H 05/09/21 13:22 Urine RBC (Auto) 8.0 /HPF (0.0-6.0) 05/09/21 13:22 U Epithel Cells (Auto) < 1.0 /HPF (0-13.0) 05/09/21 13:22 Urine Bacteria (Auto) 1+ /HPF (Negative) 05/09/21 00:40 Uric Acid Crystals Few 05/09/21 00:40 Triple Phos Crystals 2+ 05/09/21 13:22 Amorphous Crystals Few 05/09/21 00:40 Urine Mucus Few /HPF 05/09/21 00:40 Urine Creatinine 100.8 mg/dL (0.1-20.0) H 05/10/21 11:03 Protein/Creatinin Ratio 0.42 05/10/21 11:03 Urine Sodium 61 mmol/L 05/05/21 09:57 Urine Total Protein 42 mg/dL (5-11.8) H 05/10/21 11:03 Urine Opiates Screen Negative 05/04/21 Unknown Urine Methadone Screen Negative 05/04/21 Unknown Ur Barbiturates Screen Negative 05/04/21 Unknown Ur Phencyclidine Scrn Negative 05/04/21 Unknown Ur Amphetamines Screen Positive 05/04/21 Unknown U Benzodiazepines Scrn Negative 05/04/21 Unknown Urine Cocaine Screen Negative 05/04/21 Unknown U Marijuana (THC) Screen Negative 05/04/21 Unknown Drugs of Abuse Note Disclamer 05/04/21 Unknown AUDRA Screen Negative (Negative) 05/05/21 03:40 Proteinase 3 (PR3) Ab <1.0 AI (<1.0) 05/05/21 03:40 Myeloperoxidase Ab <1.0 AI (<1.0) 05/05/21 03:40 Complement C3 72 mg/dL (82-185) L 05/05/21 03:40 Complement C4 17 mg/dL (15-53) 05/05/21 03:40 Coronavirus (PCR) Positive (Negative) A 05/05/21 08:30 Hepatitis A IgM Ab Non-reactive (NonReactive) 05/05/21 03:40 Hep Bs Antigen Non-reactive (Negative) 05/05/21 03:40 Hep B Core IgM Ab Non-reactive (NonReactive) 05/05/21 03:40 Hepatitis C Antibody Reactive (NonReactive) A 05/05/21 03:40 Microbiology: Microbiology 05/09/21 13:53 Peripheral/Venous Blood Culture - Preliminary NO GROWTH AFTER 48 HOURS 05/09/21 13:53 Peripheral/Venous Blood Culture - Preliminary NO GROWTH AFTER 48 HOURS 05/09/21 13:22 Urine,Clean Catch Urine Culture - Preliminary Enterococcus Species 05/07/21 16:16 Peripheral/Venous Blood Culture - Preliminary NO GROWTH AFTER 72 HOURS 05/07/21 16:28 Peripheral/Venous Blood Culture - Preliminary NO GROWTH AFTER 72 HOURS Merino/IV: Voiding Method Condom Catheter Active Medications - Current Medications Current Medications: Generic Name Dose Route Start Last Admin Trade Name Freq PRN Reason Stop Dose Admin Acetaminophen 650 mg 05/04/21 12:34 05/11/21 11:24 Acetaminophen 325 Mg Tab PO 650 mg Q4H PRN Administration Pain MILD(1-3)/Fever >100.5/MARIA Acetaminophen 650 mg 05/07/21 16:00 05/07/21 15:54 Acetaminophen 650 Mg Rect Supp GA 650 mg Q4H PRN Administration Pain, Mild (1-3) Aspirin 81 mg 05/06/21 14:00 05/11/21 09:04 Aspirin 81 Mg Tab Chew PO 81 mg QDAY RISHI Administration Atorvastatin Calcium 40 mg 05/09/21 22:00 05/10/21 21:32 Atorvastatin 40 Mg Tab FEEDTUBE 40 mg QHS RISHI Administration Chlordiazepoxide HCl 75 mg 05/11/21 15:00 Chlordiazepoxide 25 Mg Cap PO Q8H RISHI Dexamethasone 8 mg 05/08/21 12:00 05/11/21 09:05 Dexamethasone 4 Mg/Ml Vial IV 05/17/21 10:01 8 mg Q24HR RISHI Administration Dextrose 0 ml 05/09/21 10:49 Dextrose 10% *Hypoglycemia IV PRN PRN Hypoglycemia Famotidine 10 mg 05/06/21 11:30 05/11/21 09:04 Famotidine 20 Mg/2 Ml Inj IV 10 mg BID RISHI Administration Fentanyl 50 mcg 05/05/21 15:21 Fentanyl 100 Mcg/2 Ml Inj IV Q10MIN PRN ANALGESIA Haloperidol Lactate 5 mg 05/09/21 18:32 05/10/21 11:10 Haloperidol Lactate 5 Mg/1 Ml Inj IV 5 mg Q6H PRN Administration Agitation Heparin Sodium (Porcine) 3,000 unit 05/11/21 14:14 Heparin 10,000 Units/10 Ml Vial IV Q6H PRN Anti-Xa Assay < 0.1 units/ml Hydralazine HCl 50 mg 05/04/21 14:00 05/11/21 13:20 Hydralazine 25 Mg Tab PO 50 mg Q8HR RISHI Administration Hydralazine HCl 10 mg 05/07/21 16:16 05/09/21 17:35 Hydralazine 20 Mg/1 Ml Inj IV 10 mg Q2H PRN Administration Blood Pressure Hydrophilic Ointment 1 applic 05/05/21 15:21 Lip Therapy Vaseline TP Q2HR PRN Dry Lips Fentanyl Citrate 2,000 mcg in 100 mls @ 4.082 mls/hr 05/05/21 16:00 05/11/21 14:32 Fentanyl Drip Premix IV 3 mcg/kg/hr TITR RISHI 12.247 mls/hr Titration Protocol 1 MCG/KG/HR Propofol 1,000 mg in 100 mls @ 2.449 mls/hr 05/05/21 16:00 05/09/21 06:16 Diprivan 10 Mg/Ml IV 20 mcg/kg/min TITR RISHI 9.798 mls/hr Administration Protocol 5 MCG/KG/MIN Sodium Chloride 1,000 mls @ 75 mls/hr 05/07/21 14:00 05/11/21 04:42 Nacl 0.45% 1000 Ml IV 75 mls/hr DIRECT RISHI Administration Ceftriaxone Sodium 2 gm in 100 mls @ 200 mls/hr 05/10/21 16:00 05/10/21 18:41 Rocephin/Ns 2 Gm/100 Ml IV 05/11/21 16:29 200 mls/hr Q24H RISHI Administration Protocol Heparin Sodium/Sodium Chloride 25,000 unit in 500 mls @ 24 mls/hr 05/11/21 15:00 Heparin/ 0.45% Nacl-25,000 Unit/500 Ml IV TITR RISHI Protocol 1,200 UNITS/HR Insulin Human Lispro 0 unit 05/10/21 09:40 05/10/21 19:12 Insulin Lispro 100 Unit/Ml SUB-Q 2 unit Q6HR PRN Administration Hyperglycemia Protocol Metoprolol Tartrate 50 mg 05/10/21 14:00 05/11/21 13:20 Metoprolol Tartrate 50 Mg Tab FEEDTUBE 50 mg TID RISHI Administration Multi-Ingred Cream/Lotion/Oil/Oint 1 applic 05/05/21 15:21 Mineral Oil/Petrolatum, White Ophth Oint 3.5 Gm OU Q4HR PRN Dry Eye(s) Ondansetron HCl 4 mg 05/04/21 12:34 05/04/21 21:51 Ondansetron 4 Mg/2 Ml Inj IV 4 mg Q8H PRN Administration Nausea And Vomiting Quetiapine Fumarate 200 mg 05/09/21 22:00 05/11/21 09:04 Quetiapine 200 Mg Tab PO 200 mg BID RISHI Administration Senna/Docusate Sodium 1 tab 05/05/21 22:00 05/11/21 09:04 Sennosides/Docusate Sodium 8.6/50 Mg Tab FEEDTUBE 1 tab BID RISHI Administration Sodium Chloride 10 ml 05/04/21 22:00 05/11/21 09:04 Sodium Chloride 0.9% 10 Ml Flush Syringe IV 10 ml BID RISHI Administration Sodium Chloride 10 ml 05/04/21 12:34 05/06/21 13:59 Sodium Chloride 0.9% 10 Ml Flush Syringe IV 10 ml PRN PRN Administration LINE FLUSH Sodium Chloride 10 ml 05/09/21 09:46 Sodium Chloride 0.9% 50 Ml Ivpb IV PRN PRN FLUSH Nutrition/Malnutrition Assess - Dietary Evaluation Nutrition/Malnutrition Findings: Nutrition Notes Start: 05/05/21 16:15 Freq: Status: Active Protocol: Document 05/09/21 11:40 MORALES (Rec: 05/09/21 12:17 MORALES [id number]) Nutrition Notes Need for Assessment generated from: MD Order Initial or Follow up Assessment Current Diagnosis Acute Kidney Injury, Hypertension Other Pertinent Diagnosis COVID-19, NSTEMI, Hep-C, Anemia, Metabolic Acidosis, Transaminitis, Drug ab Current Diet TF-Promote @ 60 ml/hr (since D 05/09). Labs/Tests 05/09: Na 151, Cl 114.5, CO2 21, BUN 57, Crea 2.4. Pertinent Medications 05/09: NaCl 0.45% 1000 ml @ 75 ml/hr, Propofol 1000mg in 100 ml @ 2.449 ml/hr (65 Kcal), others nutritionally unremarkable. Height 5 ft 7 in Weight 81.647 kg [place] Body Weight (kg) 67.27 BMI 28.1 Weight change and time frame No body weight change in 4 days reported. Weight Status Overweight Subjective/Other Information RD consult for routine F/u and MD request to write/manage TF . Pt is on mechanical ventilation, according to Physical Assessment History notes. Pt has missing teeth, according to Physical Assessment History notes. F/U for TF tolerance. Percent of energy/protein needs met: Prescribed Promote @ 60 ml/hr provides for energy/protein needs (1,444 Kcal/90 g) during LOS, 75% Kcal; 90% AA. Burn Absent Trauma Absent GI Symptoms None Difficulty In Chewing Food Allergy No Skin Integrity/Comment Clear, warm, dry. Current % PO Other Minimum of two criteria No #1 Nutrition Diagnosis Inadequate oral intake Etiology Pt on mechanical ventilaton. As Evidenced by Signs and Symptoms Pt currently on NPO. Is patient on ventilator? Yes Is Patient Ambulatory and/or Out of Bed No REE-([facility]-confined to bed) 3005.743 Calculation Used for Recommendations 70-80% of EEN Additional Notes 15-20 Kcal/Kg ABW. Protein: 1.2-2 g/Kg; 100-164 g /day. Fluids: 1 ml/Kcal, or as per MD. Nutrition Intervention Nutrition Support: Start Promote @ 60 ml/hr. Flush: 120 ml water Q 4 hr, or as per MD. Kcal 1,444 Protein (gm) 90 Carbohydrates (gm) 188 Fat (gm) 38 Fluid (mL) 1,212 Fiber (gm) 0 % RDI: 75% Kcal; 90% AA. Goal #1 Provide at least 75% of energy /protein needs through Enteral Feeding during LOS. Follow-Up By: 05/11/21 Additional Comments Continue monitoring TF tolerance and BM. <LALA RODARTE - Last Filed: 05/19/21 12:56> Assessment and Plan Assessment and plan: I saw and evaluated the patient. Discussed with the nurse practitioner and agree with their findings and plan as documented in this note. Hospitalist Physical - Constitutional Vitals: Temp Pulse Resp BP Pulse Ox 101.6 F H 81 30 H 131/101 100 05/19/21 11:47 05/19/21 12:00 05/19/21 12:00 05/19/21 12:00 05/19/21 12:00 HEART Score - HEART Score Troponin: Troponin T 0.400 ng/mL (0.00-0.029) H* D 05/16/21 18:40 Results - Labs CBC & Chem 7: 05/19/21 05:23 05/19/21 05:23 Labs: Laboratory Last Values WBC 18.5 K/mm3 (4.5-11.0) H 05/19/21 05:23 RBC 3.31 M/mm3 (3.65-5.03) L 05/19/21 05:23 Hgb 9.9 gm/dl (11.8-15.2) L 05/19/21 05:23 Hct 31.1 % (35.5-45.6) L 05/19/21 05:23 MCV 94 fl (84-94) 05/19/21 05:23 MCH 30 pg (28-32) 05/19/21 05:23 MCHC 32 % (32-34) 05/19/21 05:23 RDW 16.9 % (13.2-15.2) H 05/19/21 05:23 Plt Count 370 K/mm3 (140-440) 05/19/21 05:23 Lymph % (Auto) Bench Shear Operator 05/16/21 10:21 Lincoln % (Auto) Bench Shear Operator 05/16/21 10:21 Eos % (Auto) Bench Shear Operator 05/16/21 10:21 Baso % (Auto) Bench Shear Operator 05/16/21 10:21 Lymph # (Auto) Bench Shear Operator 05/16/21 10:21 [place] # (Auto) Bench Shear Operator 05/16/21 10:21 Eos # (Auto) Bench Shear Operator 05/16/21 10:21 Baso # (Auto) Bench Shear Operator 05/16/21 10:21 Add Manual Diff Complete 05/16/21 10:21 Total Counted 100 05/16/21 10:21 Seg Neutrophils % Bench Shear Operator 05/16/21 10:21 Seg Neuts % (Manual) 83.0 % (40.0-70.0) H 05/16/21 10:21 Band Neutrophils % 2.0 % 05/16/21 10:21 Lymphocytes % (Manual) 4.0 % (13.4-35.0) L 05/16/21 10:21 Reactive Lymphs % (Man) 0 % 05/16/21 10:21 Monocytes % (Manual) 9.0 % (0.0-7.3) H 05/16/21 10:21 Eosinophils % (Manual) 0 % (0.0-4.3) 05/16/21 10:21 Basophils % (Manual) 0 % (0.0-1.8) 05/16/21 10:21 Metamyelocytes % 0 % 05/16/21 10:21 Myelocytes % 2.0 % 05/16/21 10:21 Promyelocytes % 0 % 05/16/21 10:21 Blast Cells % 0 % 05/16/21 10:21 Nucleated RBC % Not Reportable 05/16/21 10:21 Seg Neutrophils # Bench Shear Operator 05/16/21 10:21 Seg Neutrophils # Man 22.9 K/mm3 (1.8-7.7) H 05/16/21 10:21 Band Neutrophils # 0.6 K/mm3 05/16/21 10:21 Lymphocytes # (Manual) 1.1 K/mm3 (1.2-5.4) L 05/16/21 10:21 Abs React Lymphs (Man) 0.0 K/mm3 05/16/21 10:21 Monocytes # (Manual) 2.5 K/mm3 (0.0-0.8) H 05/16/21 10:21 Eosinophils # (Manual) 0.0 K/mm3 (0.0-0.4) 05/16/21 10:21 Basophils # (Manual) 0.0 K/mm3 (0.0-0.1) 05/16/21 10:21 Metamyelocytes # 0.0 K/mm3 05/16/21 10:21 Myelocytes # 0.6 K/mm3 05/16/21 10:21 Promyelocytes # 0.0 K/mm3 05/16/21 10:21 Blast Cells # 0.0 K/mm3 05/16/21 10:21 WBC Morphology Not Reportable 05/16/21 10:21 Hypersegmented Neuts Not Reportable 05/16/21 10:21 Hyposegmented Neuts Not Reportable 05/16/21 10:21 Hypogranular Neuts Not Reportable 05/16/21 10:21 Smudge Cells Not Reportable 05/16/21 10:21 Toxic Granulation Not Reportable 05/16/21 10:21 Toxic Vacuolation Not Reportable 05/16/21 10:21 Dohle Bodies Not Reportable 05/16/21 10:21 Pelger-Huet Anomaly Not Reportable 05/16/21 10:21 Jesse Rods Not Reportable 05/16/21 10:21 Platelet Estimate Consistent w auto 05/16/21 10:21 Clumped Platelets Few 05/16/21 10:21 Plt Clumps, EDTA Not Reportable 05/16/21 10:21 Large Platelets Not Reportable 05/16/21 10:21 Giant Platelets Not Reportable 05/16/21 10:21 Platelet Satelliting Not Reportable 05/16/21 10:21 Plt Morphology Comment Not Reportable 05/16/21 10:21 RBC Morphology Not Reportable 05/16/21 10:21 Dimorphic RBCs Not Reportable 05/16/21 10:21 Polychromasia Not Reportable 05/16/21 10:21 Hypochromasia Not Reportable 05/16/21 10:21 Poikilocytosis Not Reportable 05/16/21 10:21 Anisocytosis 1+ 05/16/21 10:21 Microcytosis Not Reportable 05/16/21 10:21 Macrocytosis Few 05/16/21 10:21 Spherocytes Not Reportable 05/16/21 10:21 Pappenheimer Bodies Not Reportable 05/16/21 10:21 Sickle Cells Not Reportable 05/16/21 10:21 Target Cells Not Reportable 05/16/21 10:21 Tear Drop Cells Not Reportable 05/16/21 10:21 Ovalocytes Not Reportable 05/16/21 10:21 Helmet Cells Not Reportable 05/16/21 10:21 Murphy-[place] Bodies Not Reportable 05/16/21 10:21 Mahomet Rings Not Reportable 05/16/21 10:21 [place] Cells Not Reportable 05/16/21 10:21 Bite Cells Not Reportable 05/16/21 10:21 Crenated Cell Not Reportable 05/16/21 10:21 Elliptocytes Not Reportable 05/16/21 10:21 Acanthocytes (Spur) Not Reportable 05/16/21 10:21 Rouleaux Not Reportable 05/16/21 10:21 Hemoglobin C Crystals Not Reportable 05/16/21 10:21 Schistocytes Not Reportable 05/16/21 10:21 Malaria parasites Not Reportable 05/16/21 10:21 Tomi Bodies Not Reportable 05/16/21 10:21 Hem Pathologist Commnt No 05/16/21 10:21 PT 15.6 Sec. (12.2-14.9) H 05/11/21 14:43 INR 1.12 (0.87-1.13) 05/11/21 14:43 APTT 30.3 Sec. (24.2-36.6) 05/11/21 14:43 D-Dimer 2730.61 ng/mlDDU (0-234) H 05/12/21 07:19 Heparin Anti-Xa Level 0.47 U.I./ml (0.3-0.7) 05/19/21 05:23 ABG pH 7.428 pH Units (7.350-7.450) 05/18/21 12:50 ABG pCO2 43.3 mm Hg 05/18/21 12:50 ABG pO2 79.6 mm Hg (80.0-90.0) L 05/18/21 12:50 ABG HCO3 28.0 mmol/L (20.0-26.0) H 05/18/21 12:50 ABG O2 Saturation 97.0 % (95.0-99.0) 05/18/21 12:50 ABG O2 Content 8.4 (0.0-44) 05/18/21 12:50 ABG Base Excess 3.3 mmol/L (-2.0-3.0) H 05/18/21 12:50 ABG Hemoglobin 6.2 gm/dl (14.0-18.0) L 05/18/21 12:50 ABG Carboxyhemoglobin 1.5 % (0.0-5.0) 05/18/21 12:50 ABG Methemoglobin 0.4 % (0.0-1.5) 05/18/21 12:50 Oxyhemoglobin 95.2 % (95.0-99.0) 05/18/21 12:50 FiO2 40 % 05/18/21 12:50 Sodium 141 mmol/L (137-145) 05/19/21 05:23 Sodium 142 mmol/L (137-145) 05/19/21 05:23 Potassium 4.5 mmol/L (3.6-5.0) 05/19/21 05:23 Potassium 4.8 mmol/L (3.6-5.0) 05/19/21 05:23 Chloride 104.8 mmol/L (98-107) 05/19/21 05:23 Chloride 105.4 mmol/L (98-107) 05/19/21 05:23 Carbon Dioxide 24 mmol/L (22-30) 05/19/21 05:23 Carbon Dioxide 26 mmol/L (22-30) 05/19/21 05:23 Anion Gap 16 mmol/L 05/19/21 05:23 Anion Gap 16 mmol/L 05/19/21 05:23 BUN 34 mg/dL (9-20) H 05/19/21 05:23 BUN 35 mg/dL (9-20) H 05/19/21 05:23 Creatinine 2.0 mg/dL (0.8-1.3) H 05/19/21 05:23 Creatinine 2.1 mg/dL (0.8-1.3) H 05/19/21 05:23 Estimated GFR 33 ml/min 05/19/21 05:23 Estimated GFR 35 ml/min 05/19/21 05:23 BUN/Creatinine Ratio 16 % 05/19/21 05:23 BUN/Creatinine Ratio 18 % 05/19/21 05:23 Glucose 90 mg/dL (75-100) 05/19/21 05:23 Glucose 94 mg/dL (75-100) 05/19/21 05:23 POC Glucose 111 mg/dL (70-105) H 05/19/21 11:24 Calcium 8.9 mg/dL (8.4-10.2) 05/19/21 05:23 Calcium 9.1 mg/dL (8.4-10.2) 05/19/21 05:23 Phosphorus 4.00 mg/dL (2.5-4.5) 05/14/21 15:44 Magnesium 2.00 mg/dL (1.7-2.3) 05/14/21 15:44 Ferritin 640.2 ng/mL (30.0-300.0) H 05/12/21 07:19 Total Bilirubin 0.60 mg/dL (0.1-1.2) 05/16/21 10:21 AST 34 units/L (5-40) 05/16/21 10:21 ALT 51 units/L (7-56) 05/16/21 10:21 Alkaline Phosphatase 74 units/L (35-129) 05/16/21 10:21 Lactate Dehydrogenase 314 units/L (91-180) H 05/12/21 07:19 Total Creatine Kinase 406 units/L (55-170) H 05/04/21 08:42 Troponin T 0.400 ng/mL (0.00-0.029) H* D 05/16/21 18:40 C-Reactive Protein 1.60 mg/dL (0.00-1.30) H 05/12/21 07:19 Total Protein 7.4 g/dL (6.3-8.2) 05/16/21 10:21 Albumin 3.1 g/dL (3.9-5) L 05/16/21 10:21 Albumin/Globulin Ratio 0.7 % 05/16/21 10:21 Triglycerides 144 mg/dL (2-149) 05/10/21 04:57 Cholesterol 140 mg/dL (50-199) 05/04/21 07:25 LDL Cholesterol Direct 89 mg/dL (50-130) 05/04/21 07:25 HDL Cholesterol 48 mg/dL (40-59) 05/04/21 07:25 Cholesterol/HDL Ratio 2.91 % 05/04/21 07:25 Procalcitonin 0.63 ng/mL (<0.15) 05/09/21 15:53 Urine Color Yellow (Yellow) 05/09/21 13:22 Urine Turbidity Turbid (Clear) 05/09/21 13:22 Urine pH 5.0 (5.0-7.0) 05/09/21 13:22 Ur Specific [place] 1.018 (1.003-1.030) 05/09/21 13:22 Urine Protein 100 mg/dl mg/dL (Negative) 05/09/21 13:22 Urine Glucose (UA) Neg mg/dL (Negative) 05/09/21 13:22 Urine Ketones Tr mg/dL (Negative) 05/09/21 13:22 Urine Blood Mod (Negative) 05/09/21 13:22 Urine Nitrite Neg (Negative) 05/09/21 13:22 Urine Bilirubin Neg (Negative) 05/09/21 13:22 Urine Urobilinogen < 2.0 mg/dL (<2.0) 05/09/21 13:22 Ur Leukocyte Esterase Mod (Negative) 05/09/21 13:22 Urine WBC (Auto) 25.0 /HPF (0.0-6.0) H 05/09/21 13:22 Urine RBC (Auto) 8.0 /HPF (0.0-6.0) 05/09/21 13:22 U Epithel Cells (Auto) < 1.0 /HPF (0-13.0) 05/09/21 13:22 Urine Bacteria (Auto) 1+ /HPF (Negative) 05/09/21 00:40 Uric Acid Crystals Few 05/09/21 00:40 Triple Phos Crystals 2+ 05/09/21 13:22 Amorphous Crystals Few 05/09/21 00:40 Urine Mucus Few /HPF 05/09/21 00:40 Urine Creatinine 100.8 mg/dL (0.1-20.0) H 05/10/21 11:03 Protein/Creatinin Ratio 0.42 05/10/21 11:03 Urine Sodium 61 mmol/L 05/05/21 09:57 Urine Total Protein 42 mg/dL (5-11.8) H 05/10/21 11:03 Urine Opiates Screen Negative 05/04/21 Unknown Urine Methadone Screen Negative 05/04/21 Unknown Ur Barbiturates Screen Negative 05/04/21 Unknown Ur Phencyclidine Scrn Negative 05/04/21 Unknown Ur Amphetamines Screen Positive 05/04/21 Unknown U Benzodiazepines Scrn Negative 05/04/21 Unknown Urine Cocaine Screen Negative 05/04/21 Unknown U Marijuana (THC) Screen Negative 05/04/21 Unknown Drugs of Abuse Note Disclamer 05/04/21 Unknown Immunofix Electrophor see below 05/05/21 03:40 AUDRA Screen Negative (Negative) 05/05/21 03:40 Proteinase 3 (PR3) Ab <1.0 AI (<1.0) 05/05/21 03:40 Myeloperoxidase Ab <1.0 AI (<1.0) 05/05/21 03:40 Complement C3 72 mg/dL (82-185) L 05/05/21 03:40 Complement C4 17 mg/dL (15-53) 05/05/21 03:40 Coronavirus (PCR) Positive (Negative) A 05/05/21 08:30 Hepatitis A IgM Ab Non-reactive (NonReactive) 05/05/21 03:40 Hep Bs Antigen Non-reactive (Negative) 05/05/21 03:40 Hep B Core IgM Ab Non-reactive (NonReactive) 05/05/21 03:40 Hepatitis C Antibody Reactive (NonReactive) A 05/05/21 03:40 Microbiology: Microbiology 05/16/21 10:31 Tracheal Aspirate Sputum Culture - Final Enterobacter Aerogenes [place]/IV: Voiding Method Indwelling Catheter Active Medications - Current Medications Current Medications: Generic Name Dose Route Start Last Admin Trade Name Freq PRN Reason Stop Dose Admin Acetaminophen 650 mg 05/04/21 12:34 05/19/21 11:47 Acetaminophen 325 Mg Tab PO 650 mg Q4H PRN Administration Pain MILD(1-3)/Fever >100.5/MARIA Acetaminophen 650 mg 05/07/21 16:00 05/11/21 16:25 Acetaminophen 650 Mg Rect Supp GA 650 mg Q4H PRN Administration Pain, Mild (1-3) Amlodipine Besylate 5 mg 05/19/21 11:00 05/19/21 10:38 Amlodipine 5 Mg Tab PO 5 mg QDAY RISHI Administration Aspirin 81 mg 05/06/21 14:00 05/19/21 09:00 Aspirin 81 Mg Tab Chew PO 81 mg QDAY RISHI Administration Atorvastatin Calcium 40 mg 05/09/21 22:00 05/18/21 21:33 Atorvastatin 40 Mg Tab FEEDTUBE 40 mg QHS RISHI Administration Chlordiazepoxide HCl 75 mg 05/11/21 15:00 05/19/21 08:55 Chlordiazepoxide 25 Mg Cap PO 75 mg Q8H RISHI Administration Dextrose 0 ml 05/09/21 10:49 05/14/21 06:55 Dextrose 10% *Hypoglycemia IV 250 ml PRN PRN Administration Hypoglycemia Famotidine 10 mg 05/17/21 10:00 05/19/21 09:00 Famotidine 10 Mg Tab FEEDTUBE 10 mg BID RISHI Administration Haloperidol Lactate 5 mg 05/09/21 18:32 05/18/21 19:52 Haloperidol Lactate 5 Mg/1 Ml Inj IV 5 mg Q6H PRN Administration Agitation Heparin Sodium (Porcine) 3,000 unit 05/11/21 14:14 Heparin 10,000 Units/10 Ml Vial IV Q6H PRN Anti-Xa Assay < 0.1 units/ml Hydralazine HCl 50 mg 05/04/21 14:00 05/19/21 08:56 Hydralazine 25 Mg Tab PO 50 mg Q8HR RISHI Administration Hydrophilic Ointment 1 applic 05/05/21 15:21 Lip Therapy Vaseline TP Q2HR PRN Dry Lips Heparin Sodium/Sodium Chloride 25,000 unit in 500 mls @ 24 mls/hr 05/11/21 15:00 05/19/21 06:59 Heparin/ 0.45% Nacl-25,000 Unit/500 Ml IV 1,550 units/hr TITR RISHI 31 mls/hr Titration Protocol 1,200 UNITS/HR Cefepime HCl 2 gm in 100 mls @ 200 mls/hr 05/18/21 18:00 05/18/21 17:27 Cefepime/Ns 2 Gm/100 Ml IV 200 mls/hr Q24H RISHI Administration Protocol Insulin Human Lispro 0 unit 05/10/21 09:40 05/12/21 16:49 Insulin Lispro 100 Unit/Ml SUB-Q 2 unit Q6HR PRN Administration Hyperglycemia Protocol Labetalol HCl 10 mg 05/15/21 10:24 Labetalol 20 Mg/4 Ml Inj IV Q4H PRN sbp> 160. Metoprolol Tartrate 50 mg 05/10/21 14:00 05/19/21 08:55 Metoprolol Tartrate 50 Mg Tab FEEDTUBE 50 mg TID RISHI Administration Multi-Ingred Cream/Lotion/Oil/Oint 1 applic 05/05/21 15:21 Mineral Oil/Petrolatum, White Ophth Oint 3.5 Gm OU Q4HR PRN Dry Eye(s) Ondansetron HCl 4 mg 05/04/21 12:34 05/04/21 21:51 Ondansetron 4 Mg/2 Ml Inj IV 4 mg Q8H PRN Administration Nausea And Vomiting Quetiapine Fumarate 100 mg 05/19/21 22:00 Quetiapine 100 Mg Tab PO BID RISHI Senna/Docusate Sodium 1 tab 05/05/21 22:00 05/19/21 09:00 Sennosides/Docusate Sodium 8.6/50 Mg Tab FEEDTUBE Not Given BID RISHI Sodium Chloride 10 ml 05/04/21 22:00 05/19/21 09:00 Sodium Chloride 0.9% 10 Ml Flush Syringe IV 10 ml BID RISHI Administration Sodium Chloride 10 ml 05/04/21 12:34 05/06/21 13:59 Sodium Chloride 0.9% 10 Ml Flush Syringe IV 10 ml PRN PRN Administration LINE FLUSH Sodium Chloride 10 ml 05/09/21 09:46 Sodium Chloride 0.9% 50 Ml Ivpb IV PRN PRN FLUSH Nutrition/Malnutrition Assess - Dietary Evaluation Nutrition/Malnutrition Findings: Nutrition Notes Start: 05/05/21 16:15 Freq: Status: Active Protocol: Document 05/16/21 10:32 ROSAURA (Rec: 05/16/21 10:48 ROSAURA [id number]) Nutrition Notes Initial or Follow up Reassessment Current Diagnosis Acute Kidney Injury, Hypertension,Heart Failure, Respiratory Failure Other Pertinent Diagnosis Severe COVID-19 pneu, metabolic encephalopathy, polysubstance dependence Current Diet TF - Promote at 60ml/hr Labs/Tests Reviewed Pertinent Medications Lasix, Heparin gtt Height 5 ft 7 in Weight 81.647 kg [place] Body Weight (kg) 67.27 BMI 28.1 Weight Status Overweight Subjective/Other Information Pt extubated on 05/13, however, was re-intubated this am sec to resp distress. Percent of energy/protein needs met: 75% energy 92% pro Minimum of two criteria No #1 Nutrition Diagnosis Inadequate oral intake Diagnosis Progress(for reassessment Continues documentation) Is patient on ventilator? Yes Is Patient Ambulatory and/or Out of Bed No REE-([facility]-confined to bed) [phone] Calculation Used for Recommendations [facility] Additional Notes Pro needs 1.2-2g/k-163g/ day Fluid needs 1ml/kcal Nutrition Intervention Nutrition Support: Continue Promote at 60ml/hr with 200ml water flush q4 until hypernatremia resolved. When Na lab is WNL, reduce water flush to 50ml q4h. Kcal 1,440 Protein (gm) 90 Carbohydrates (gm) 187 Fat (gm) 37 Fluid (mL) 1,208 Fiber (gm) 0 Goal #1 TF tolerance Goal #2 TF to meet at least 75% energy and pro needs Follow-Up By: 05/20/21 Additional Comments F/U: TF tolerance, Na lab/ water flushes, BG lab/need for reduced CHO formula, vent status
[2021-05-11 15:49] LABS: INR 1.12 (0.87-1.13)
[2021-05-11 15:50] LABS: Partial Thromboplastin Time 30.3 Sec. (24.2-36.6)
[2021-05-11] MEDS ORDERED: VANCOMYCIN/NS 1 GM/250 ML 1 GM/250 ML BAG IV ONE (16:13)
[2021-05-11] MEDS: cefTRIAXone/NS 2 GM/100 ML 2 GM/100 ML BAG IV SCH (16:25)
[2021-05-11] MEDS: ACETAMINOPHEN 650 MG RECT SUPP PR PRN (16:25)
[2021-05-11] MEDS: chlordiazePOXIDE 25 MG CAP PO SCH ×2 (16:47→23:31)
[2021-05-11] MEDS ORDERED: VANCOMYCIN PHARMACY TO DOSE IV SCH (17:00)
[2021-05-11] MEDS ORDERED: VANCOMYCIN 1,500 MG in SODIUM CHLORIDE 0.9% 500 ML 500 ML IV ONE (18:00)
--- NOTE | 2021-05-12 02:40 | XRay Report ---
CHEST 1 VIEW 05/12/2021 1:27 AM INDICATION / CLINICAL INFORMATION: follow up respiratory failure. COMPARISON: 05/11/2021 FINDINGS: SUPPORT DEVICES: Stable, satisfactory device positioning. HEART / MEDIASTINUM: No significant abnormality. LUNGS / PLEURA: Increased pulmonary interstitial prominence and opacities in bilateral lower lungs wi th left effusion No pneumothorax. ADDITIONAL FINDINGS: No significant additional findings. IMPRESSION: No significant change Signer Name: Master Cantu MD Signed: 05/12/2021 2:35 AM Workstation Name: [id number]
[2021-05-12] MEDS: FREE WATER PO SCH ×6 (02:50→22:32)
[2021-05-12] MEDS: hydrALAZINE 25 MG TAB PO SCH ×3 (06:35→22:31)
[2021-05-12 08:11] LABS: Basophils % (Auto) 0.2 % (0.0-1.8); Eosinophils % (Auto) 0.1 % (0.0-4.3); Hematocrit 28.9 % (35.5-45.6); Hemoglobin 9.1 gm/dl (11.8-15.2); Lymphocytes # (Auto) 1.4 K/mm3 (1.2-5.4); Lymphocytes % (Auto) 11.5 % (13.4-35.0); Mean Corpuscular HGB Conc 32 % (32-34); Mean Corpuscular Volume 96 fl (84-94); Monocytes % (Auto) 8.2 % (0.0-7.3); Platelet Count 247 K/mm3 (140-440); Red Cell Distribution Width 16.7 % (13.2-15.2)
[2021-05-12] MEDS: METOPROLOL TARTRATE 50 MG TAB FEEDTUBE SCH ×3 (08:14→22:31)
[2021-05-12] MEDS: chlordiazePOXIDE 25 MG CAP PO SCH ×3 (08:14→22:35)
[2021-05-12] MEDS: HEPARIN/ 0.45% NACL DRIP 25,000 UNIT/500 ML BAG IV SCH (09:15)
[2021-05-12] MEDS: ASPIRIN 81 MG TAB CHEW PO SCH (09:18)
[2021-05-12] MEDS: FAMOTIDINE 10 MG TAB FEEDTUBE SCH ×2 (09:18→22:31)
[2021-05-12] MEDS: QUEtiapine 200 MG TAB PO SCH ×2 (09:18→22:31)
[2021-05-12] MEDS: dexAMETHasone 4 MG/ML VIAL IV SCH (09:18)
[2021-05-12] MEDS: SENNOSIDES/DOCUSATE SODIUM 8.6/50 MG TAB FEEDTUBE SCH ×2 (09:18→22:31)
[2021-05-12 09:32] LABS: Calcium 8.1 mg/dL (8.4-10.2)
[2021-05-12] MEDS ORDERED: SODIUM POLYSTYRENE 15 GM/60 ML ORAL LIQD PO SCH (10:15)
[2021-05-12] MEDS: cefTRIAXone/NS 2 GM/100 ML 2 GM/100 ML BAG IV SCH (11:01)
--- NOTE | 2021-05-12 11:49 | Progress Note ---
Assessment and Plan Patient is a 56-year-old male with a past medical history of hypertension, paroxysmal SVT, medical noncompliance, smoking, substance abuse who presented to the ED with a complaint of shortness of breath and dyspnea on exertion x1 month however with significantly worsening symptoms since yesterday. NSTEMI Hypertensive Emergency COVID-19 Acute DVT Afib YE Hepatitis C SOB Medical noncompliance Polysubstance abuse-patient tested positive for methamphetamines Echo 05/04/2021-EF 35 to 40%. Moderate concentric LVH. Moderate global hypokinesis of left ventricle. Mild mitral regurgitation. Mild pulmonary hypertension. Echocardiogram reviewed (08/27/2020): LVEF is 50 to 55%. Mild to moderate concentric LVF. Severe diastolic dysfunction is present (restrictive filling). Right ventricle is mildly hypokinetic. RVSP is 48 mmHg. No valvular abnormalities. Plan: Patient remains in sinus rhythm Continue statin therapy Continue medical management. Doppler study showed patient to have acute DVT. Patient currenlty on heparin gtt for anitcoagulation Continue metoprolol 50 mg p.o. 3 times daily Patient seen in conjunction with Dr. Carpenter who agrees with this plan of care - Patient Problems (1) ARF (acute renal failure) Current Visit: Yes Status: Acute (2) Elevated d-dimer Current Visit: Yes Status: Acute (3) LFT elevation Current Visit: Yes Status: Acute (4) NSTEMI (non-ST elevated myocardial infarction) Current Visit: Yes Status: Acute (5) Polysubstance abuse Current Visit: Yes Status: Acute (6) SOB (shortness of breath) Current Visit: Yes Status: Acute (7) Hypertension Current Visit: Yes Status: Chronic (8) Noncompliance with medication regimen Current Visit: Yes Status: Chronic Subjective Date of service: 05/12/21 Principal diagnosis: AHRF; COVID-19 infection; NSTEMI; YE; HFrEF (35-40%); Polysubstance abuse Interval history: Patient remained intubated and sedated Patient remains sinus rhythm on monitor with no event Objective Vital Signs Temp Pulse Pulse Pulse Pulse Resp BP 05/12/21 11:27 100.5 F H 05/12/21 11:09 71 22 116/83 05/12/21 08:30 71 21 127/91 05/12/21 08:14 71 128/95 05/12/21 08:00 76 21 128/95 05/12/21 07:30 66 21 115/83 05/12/21 07:25 67 115/83 05/12/21 07:14 99.7 F H 05/12/21 07:00 65 20 115/83 05/12/21 06:35 67 122/89 05/12/21 06:30 70 18 122/89 05/12/21 06:00 64 20 116/85 05/12/21 05:30 66 20 119/86 05/12/21 05:00 64 20 116/84 05/12/21 04:30 64 20 120/87 05/12/21 04:10 64 117/86 05/12/21 04:00 100.0 F H 65 80 80 80 20 117/86 05/12/21 03:30 65 20 118/87 05/12/21 03:00 65 20 116/86 05/12/21 02:30 64 20 115/85 05/12/21 02:00 66 20 115/85 05/12/21 01:30 64 20 112/82 05/12/21 01:00 65 20 118/85 05/12/21 00:55 66 111/83 05/12/21 00:30 66 20 111/83 05/12/21 00:00 99.6 F 66 80 80 80 20 111/81 05/11/21 23:30 70 20 116/86 05/11/21 23:00 66 20 97/71 05/11/21 22:30 67 19 100/75 05/11/21 22:00 71 21 113/85 05/11/21 21:30 72 19 121/90 05/11/21 21:18 71 122/90 05/11/21 21:00 73 19 118/87 05/11/21 20:30 72 20 118/87 05/11/21 20:12 71 113/82 05/11/21 20:00 98.4 F 71 80 80 80 20 113/82 05/11/21 19:30 70 20 115/84 05/11/21 19:00 73 19 122/90 05/11/21 18:30 72 21 117/84 05/11/21 18:00 73 80 80 80 20 122/92 05/11/21 17:30 75 19 131/96 05/11/21 17:00 78 21 131/96 05/11/21 16:30 78 20 126/91 05/11/21 16:06 102.1 F H 05/11/21 16:00 77 17 126/91 05/11/21 15:45 79 121/87 05/11/21 15:30 78 21 121/87 05/11/21 15:00 79 20 126/89 05/11/21 14:30 80 17 132/93 05/11/21 14:00 81 80 80 80 19 129/89 05/11/21 13:30 89 25 H 148/103 05/11/21 13:20 98 H 05/11/21 13:00 91 H 25 H 143/102 05/11/21 12:30 91 H 25 H 138/103 05/11/21 12:00 102.3 F H 89 17 122/94 Pulse Ox 05/12/21 11:27 05/12/21 11:09 100 05/12/21 08:30 05/12/21 08:14 05/12/21 08:00 100 05/12/21 07:30 99 05/12/21 07:25 100 05/12/21 07:14 05/12/21 07:00 05/12/21 06:35 05/12/21 06:30 94 05/12/21 06:00 05/12/21 05:30 05/12/21 05:00 100 05/12/21 04:30 05/12/21 04:10 100 05/12/21 04:00 100 05/12/21 03:30 05/12/21 03:00 05/12/21 02:30 05/12/21 02:00 100 05/12/21 01:30 05/12/21 01:00 05/12/21 00:55 100 05/12/21 00:30 05/12/21 00:00 100 05/11/21 23:30 79 L 05/11/21 23:00 05/11/21 22:30 05/11/21 22:00 05/11/21 21:30 05/11/21 21:18 05/11/21 21:00 99 05/11/21 20:30 100 05/11/21 20:12 99 05/11/21 20:00 100 05/11/21 19:30 05/11/21 19:00 05/11/21 18:30 05/11/21 18:00 100 05/11/21 17:30 05/11/21 17:00 97 05/11/21 16:30 05/11/21 16:06 05/11/21 16:00 05/11/21 15:45 98 05/11/21 15:30 05/11/21 15:00 05/11/21 14:30 05/11/21 14:00 94 05/11/21 13:30 94 05/11/21 13:20 05/11/21 13:00 05/11/21 12:30 96 05/11/21 12:00 98 - Physical Examination General: Other (intubated and sedated) HEENT: Positive: PERRL Neck: Positive: trachea midline Cardiac: Positive: Reg Rate and Rhythm Lungs: Positive: Ventilated Respirations Neuro: Positive: Other (sedated) Abdomen: Positive: Soft Skin: Negative: Rash, Suspicious Lesions, Ulceration Extremities: Absent: edema - Labs and Meds Coagulation 05/11/21 Range/Units 14:43 PT 15.6 H (12.2-14.9) Sec. INR 1.12 (0.87-1.13) APTT 30.3 (24.2-36.6) Sec. CBC 05/11/21 05/12/21 Range/Units 14:43 07:19 WBC 11.9 H (4.5-11.0) K/mm3 RBC 3.00 L (3.65-5.03) M/mm3 Hgb 9.2 L 9.1 L (11.8-15.2) gm/dl Hct 29.7 L 28.9 L (35.5-45.6) % Plt Count 295 247 (140-440) K/mm3 Lymph # (Auto) 1.4 (1.2-5.4) K/mm3 [place] # (Auto) 1.0 H (0.0-0.8) K/mm3 Eos # (Auto) 0.0 (0.0-0.4) K/mm3 Baso # (Auto) 0.0 (0.0-0.1) K/mm3 Comprehensive Metabolic Panel 05/12/21 Range/Units 07:19 Sodium 146 H (137-145) mmol/L Potassium 5.1 H (3.6-5.0) mmol/L Chloride 112.4 H (98-107) mmol/L Carbon Dioxide 21 L (22-30) mmol/L BUN 61 H (9-20) mg/dL Creatinine 2.2 H (0.8-1.3) mg/dL Glucose 136 H (75-100) mg/dL Calcium 8.1 L (8.4-10.2) mg/dL - Imaging and Cardiology EKG: report reviewed, image reviewed Echo: report reviewed - Telemetry EKG Rhythm: Sinus Rhythm - EKG Sinus rhythms and dysrhythmias: sinus rhythm Ventricular dysrhythmias: ventricular premature com Chamber hypertrophy or enlargement: left ventricular hypertro - Allied health notes Allied health notes reviewed: nursing
--- NOTE | 2021-05-12 12:28 | Electrocardiograph Report ---
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
--- NOTE | 2021-05-12 12:33 | Electrocardiograph Report ---
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
[2021-05-12 12:40] LABS: C-Reactive Protein 1.6 mg/dL (0.00-1.30)
--- NOTE | 2021-05-12 12:57 | Progress Note ---
<DANIELVALENTIN MatteoChalino - Last Filed: 05/12/21 13:01> Assessment and Plan Assessment and plan: This is a 56-year-old male with nicotine and cocaine abuse, atrial fibrillation, hypertension and chronic medication noncompliance complicated by homelessness admitted with acute hypoxic respiratory failure, COVID-19 pneumonia, green saminitis, NSTEMI, hypertensive emergency and acute kidney injury A/P Acute hypoxic respiratory failure -CCM consulted, appreciate recommendations -Intubated on 05/05 with 7.50 ETT at 20 over the lips in the ED -A.m. vent setting: Assist-control rate 20, tidal volume 450, PEEP 6, FiO2 30% -See RT notes for titration -PSV again today -ABG and CXR noted -VAP bundle -Continues SPO2 monitoring -Pulmonary perfusion study showed low probability of pulmonary embolism Severe COVID-19 pneumonia/leukocytosis, Enterococcus in urine -Infectious disease consulted, appreciate recommendations -COVID-19 PCR positive -Continue droplet/precautions -Not a candidate for remdesivir given acute kidney injury -Dexamethasone for 10 days -Anticoagulation per hospital protocol -Trend COVID-19 from 2 markers (ferritin, D-dimer, CRP, LDH) -Vanco d/t Enterococcus in urine, ceftriaxone (05/10-05/15) -Follow-up for speciation -follow up gonorrhea culture Acute DVT -Bilateral lower extremity Doppler ultrasound shows acute DVT -Started on heparin drip -No bolus -adjust per protocol Acute kidney injury likely secondary to vasomotor nephropathy -Nephrology consulted, appreciate recommendations -IVF discontinued yesterday -Avoid nephrotoxic medications -Renally dose medication -Strict intake and output -FeNa indicates prerenal -Renal ultrasound completed: 1.7 hyper echoic mass within the left upper pole -Monitor follow-up with CT once stable Hypernatremia, hyperchloremia, metabolic acidosis -MIVF with half-normal saline-DC yesterday -Trend sodium -Free water flush Metabolic encephalopathy -Patient sedated on fentanyl drip -Librium and Seroquel started -Maintain sleep-wake cycle -SBT/SAT when appropriate -Monitor QTC -Avoid delirium -Bilateral restraints in place for safety S/p hypertensive emergency, h/o HTN -Continue BB -Blood pressure monitoring per protocol -Resume home antihypertensive regimen as tolerated Heart failure reduced EF, cardiomyopathy, NSTEMI, paroxysmal atrial fibrillation -Continue beta-sylvia and aspirin -Resume statin therapy -Cardiology consulted, appreciate recommendations -Echo 05/04/2021-EF 35 to 40%. Moderate concentric LVH. Moderate global hypokinesis of left ventricle. Mild mitral regurgitation. Mild pulmonary hypertension. Echocardiogram reviewed (08/27/2020): LVEF is 50 to 55%. Mild to moderate concentric LVF. Severe diastolic dysfunction is present (restrictive filling). Right ventricle is mildly hypokinetic. RVSP is 48 mmHg. No valvular abnormalities. -S/p heparin drip for 24 hours -Patient had atrial fibrillation overnight on 05/10 and was treated with a Cardizem drip -Beta-sylvia increased Polysubstance abuse, tobacco abuse -UDS positive for amphetamines -We will need cessation counseling when appropriate Transaminitis, h/o hepatitis C -Renal ultrasound showed incidental finding of cholelithiasis -Trend LFTs -Continue supportive management Anemia -Trend CBC -Transfuse for hemoglobin less than 7 DVT/ GI prophylaxis -Heparin gtt -PPI The high probability of a clinically significant, sudden or life threatening deterioration of the [cardio/resp] system(s) required my full and direct attention, intervention and personal management. The aggregate critical care time was [60] minutes. This time is in addition to time spent performing reported procedures but includes the following: [x] Data Review and interpretation [x] Patient assessment and monitoring of vital signs [x] Documentation [x] Medication orders and management Disposition Plan: icu Total Time Spent with Patient (Minutes): 60 History Interval history: This is a 56-year-old male with a nicotine abuse, A. fib, hypertension, and chronic medication noncompliance and homelessness who presented to emergency department on 05/04 with complaints of dyspnea on exertion for the past month worsening over the past 3 days, intermittent left-sided chest tightness with activity, and persistent cough without fever. Work-up in the emergency department revealed anemia, hyponatremia, elevated BUN/creatinine and transaminitis. Patient was admitted to the hospitalist service with acute kidney injury and accelerated hypertension. Hospital course to date 05/04/2021. Cardiology was considering patient for [employer]. However, patient with elevated creatinine therefore will hold off on cath evaluation. Nephrology consultation for acute kidney injury. Etiology likely secondary to vasomotor nephropathy/dehydration. We will start IV fluid hydration. Check renal ultrasound to rule out obstructive uropathy. We will resume home medications for the accelerated hypertension 05/05/2021. Echocardiogram reveals EF 35-40% with moderate concentric left ventricular hypertrophy. Moderate global hypokinesis of left ventricle. Mild mitral regurgitation. Mild pulmonary hypertension. Troponins are believed to be elevated in the setting of acute kidney injury. No beta-blockers due to cocaine use continue heparin and nitro drip. Continue CIWA protocol. Await urine studies 05/06/2021. Patient decompensated yesterday with worsening respiratory failure and difficulty to protect airway. Patient was breathing sonorously, and hypoxi c. Patient was intubated and currently is on mechanical ventilation. Patient with AC mode ventilation rate of 20, tidal volume 450, FiO2 40% and PEEP of 6. COVID PCR testing on 05/05/2021 was found to be positive. Echocardiogram completed on this admission shows worsening EF from August 2020. Echocardiogram now reveals moderate concentric left ventricular hypertrophy with moderate global hypokinesis and EF of 35-40%. Mild pulmonary hypertension. 05/08: Continue current management, renal stable, LFTs stable and if improved will start on statin therapy. 05/09: Patient is febrile, will panculture, PSV today. CRP pending. Mucoid discharge noted from meatus which was sent for culture. Hypernatremia persists, free water flushes increased 05/10: PSV trial per [facility], T-max 102.3, given mildly elevated procalcitonin started on ceftriaxone 2 g every 24 for 2 days per ID. Overnight patient had atrial fibrillation which was treated with Cardizem drip and converted to sinus rhythm. Metoprolol p.o. increased to 3 times daily. 05/11: Patient still running fevers and if still febrile tomorrow will escalate to cefepime per ID as he is currently on ceftriaxone, [facility] attempted PSV but patient became agitated and was switched back to pressure control. Lower extremity ultrasound shows acute DVT and started on heparin drip. Started on scheduled Librium. Patient remains with hypernatremia and elevated creatinine and on IV fluids. Free water flushes adjusted. Started on vancomycin today 05/12: Patient placed on pressure support trial without fentanyl, hypernatremia improving, hyperkalemia noted. Slight improvement to renal function. Hospitalist Physical - Constitutional Vitals: Temp Pulse Resp BP Pulse Ox 100.5 F H 71 22 116/83 100 05/12/21 11:27 05/12/21 11:09 05/12/21 11:09 05/12/21 11:09 05/12/21 11:09 General appearance: Present: mild distress - EENT Eyes: Present: PERRL, EOM intact ENT: hearing intact, clear oral mucosa, dentition normal - Neck Neck: Present: normal ROM - Respiratory Respiratory effort: normal Respiratory: bilateral: diminished - Cardiovascular Rhythm: regular Heart Sounds: Present: S1 & S2 - Extremities Extremities: no ischemia, pulses intact, pulses symmetrical, No edema, normal temperature, normal color Peripheral Pulses: within normal limits - Abdominal General gastrointestinal: soft, non-tender, non-distended, normal bowel sounds - Integumentary Integumentary: Present: warm, dry - Psychiatric Psychiatric: cooperative, agitated - Neurologic Neurologic: CNII-XII intact, moves all extremities - Allied Health Allied health notes reviewed: nursing, RT, social work HEART Score - HEART Score EKG: Non-specific Age: 45-65 Risk factors: 1-2 risk factors Troponin: Troponin T 1.400 ng/mL (0.00-0.029) H* 05/04/21 13:34 Troponin: 1-3x normal limit - Critical Actions Critical Actions: 4-6 pts:12-16.6% risk of adverse cardiac event. Should be admitted Results - Labs CBC & Chem 7: 05/12/21 07:19 05/12/21 07:19 Labs: Laboratory Last Values WBC 11.9 K/mm3 (4.5-11.0) H 05/12/21 07:19 RBC 3.00 M/mm3 (3.65-5.03) L 05/12/21 07:19 Hgb 9.1 gm/dl (11.8-15.2) L 05/12/21 07:19 Hct 28.9 % (35.5-45.6) L 05/12/21 07:19 MCV 96 fl (84-94) H 05/12/21 07:19 MCH 30 pg (28-32) 05/12/21 07:19 MCHC 32 % (32-34) 05/12/21 07:19 RDW 16.7 % (13.2-15.2) H 05/12/21 07:19 Plt Count 247 K/mm3 (140-440) 05/12/21 07:19 Lymph % (Auto) 11.5 % (13.4-35.0) L 05/12/21 07:19 [place] % (Auto) 8.2 % (0.0-7.3) H 05/12/21 07:19 Eos % (Auto) 0.1 % (0.0-4.3) 05/12/21 07:19 Baso % (Auto) 0.2 % (0.0-1.8) 05/12/21 07:19 Lymph # (Auto) 1.4 K/mm3 (1.2-5.4) 05/12/21 07:19 [place] # (Auto) 1.0 K/mm3 (0.0-0.8) H 05/12/21 07:19 Eos # (Auto) 0.0 K/mm3 (0.0-0.4) 05/12/21 07:19 Baso # (Auto) 0.0 K/mm3 (0.0-0.1) 05/12/21 07:19 Seg Neutrophils % 80.0 % (40.0-70.0) H 05/12/21 07:19 Seg Neutrophils # 9.6 K/mm3 (1.8-7.7) H 05/12/21 07:19 PT 15.6 Sec. (12.2-14.9) H 05/11/21 14:43 INR 1.12 (0.87-1.13) 05/11/21 14:43 APTT 30.3 Sec. (24.2-36.6) 05/11/21 14:43 D-Dimer 2730.61 ng/mlDDU (0-234) H 05/12/21 07:19 Heparin Anti-Xa Level < 0.10 U.I./ml (0.3-0.7) L 05/07/21 22:41 ABG pH 7.426 pH Units (7.350-7.450) 05/11/21 13:51 ABG pCO2 31.5 mm Hg 05/11/21 13:51 ABG pO2 74.9 mm Hg (80.0-90.0) L 05/11/21 13:51 ABG HCO3 20.3 mmol/L (20.0-26.0) 05/11/21 13:51 ABG O2 Saturation 97.0 % (95.0-99.0) 05/11/21 13:51 ABG O2 Content 14.6 (0.0-44) 05/11/21 13:51 ABG Base Excess -3.3 mmol/L (-2.0-3.0) L 05/11/21 13:51 ABG Hemoglobin 10.8 gm/dl (14.0-18.0) L 05/11/21 13:51 ABG Carboxyhemoglobin 1.3 % (0.0-5.0) 05/11/21 13:51 ABG Methemoglobin 0.6 % (0.0-1.5) 05/11/21 13:51 Oxyhemoglobin 95.1 % (95.0-99.0) 05/11/21 13:51 FiO2 30 % 05/11/21 13:51 Sodium 146 mmol/L (137-145) H 05/12/21 07:19 Potassium 5.1 mmol/L (3.6-5.0) H 05/12/21 07:19 Chloride 112.4 mmol/L (98-107) H 05/12/21 07:19 Carbon Dioxide 21 mmol/L (22-30) L 05/12/21 07:19 Anion Gap 18 mmol/L 05/12/21 07:19 BUN 61 mg/dL (9-20) H 05/12/21 07:19 Creatinine 2.2 mg/dL (0.8-1.3) H 05/12/21 07:19 Estimated GFR 31 ml/min 05/12/21 07:19 BUN/Creatinine Ratio 28 % 05/12/21 07:19 Glucose 136 mg/dL (75-100) H 05/12/21 07:19 POC Glucose 131 mg/dL (70-105) H 05/12/21 11:10 Calcium 8.1 mg/dL (8.4-10.2) L 05/12/21 07:19 Magnesium 2.30 mg/dL (1.7-2.3) 05/10/21 04:57 Ferritin 640.2 ng/mL (30.0-300.0) H 05/12/21 07:19 Total Bilirubin 0.60 mg/dL (0.1-1.2) 05/09/21 04:20 AST 20 units/L (5-40) 05/09/21 04:20 ALT 210 units/L (7-56) H 05/09/21 04:20 Alkaline Phosphatase 58 units/L (35-129) 05/09/21 04:20 Lactate Dehydrogenase 314 units/L (91-180) H 05/12/21 07:19 Total Creatine Kinase 406 units/L (55-170) H 05/04/21 08:42 Troponin T 1.400 ng/mL (0.00-0.029) H* 05/04/21 13:34 C-Reactive Protein 1.60 mg/dL (0.00-1.30) H 05/12/21 07:19 Total Protein 6.3 g/dL (6.3-8.2) 05/09/21 04:20 Albumin 2.9 g/dL (3.9-5) L 05/09/21 04:20 Albumin/Globulin Ratio 0.9 % 05/09/21 04:20 Triglycerides 144 mg/dL (2-149) 05/10/21 04:57 Cholesterol 140 mg/dL (50-199) 05/04/21 07:25 LDL Cholesterol Direct 89 mg/dL (50-130) 05/04/21 07:25 HDL Cholesterol 48 mg/dL (40-59) 05/04/21 07:25 Cholesterol/HDL Ratio 2.91 % 05/04/21 07:25 Procalcitonin 0.63 ng/mL (<0.15) 05/09/21 15:53 Urine Color Yellow (Yellow) 05/09/21 13:22 Urine Turbidity Turbid (Clear) 05/09/21 13:22 Urine pH 5.0 (5.0-7.0) 05/09/21 13:22 Ur Specific [place] 1.018 (1.003-1.030) 05/09/21 13:22 Urine Protein 100 mg/dl mg/dL (Negative) 05/09/21 13:22 Urine Glucose (UA) Neg mg/dL (Negative) 05/09/21 13:22 Urine Ketones Tr mg/dL (Negative) 05/09/21 13:22 Urine Blood Mod (Negative) 05/09/21 13:22 Urine Nitrite Neg (Negative) 05/09/21 13:22 Urine Bilirubin Neg (Negative) 05/09/21 13:22 Urine Urobilinogen < 2.0 mg/dL (<2.0) 05/09/21 13:22 Ur Leukocyte Esterase Mod (Negative) 05/09/21 13:22 Urine WBC (Auto) 25.0 /HPF (0.0-6.0) H 05/09/21 13:22 Urine RBC (Auto) 8.0 /HPF (0.0-6.0) 05/09/21 13:22 U Epithel Cells (Auto) < 1.0 /HPF (0-13.0) 05/09/21 13:22 Urine Bacteria (Auto) 1+ /HPF (Negative) 05/09/21 00:40 Uric Acid Crystals Few 05/09/21 00:40 Triple Phos Crystals 2+ 05/09/21 13:22 Amorphous Crystals Few 05/09/21 00:40 Urine Mucus Few /HPF 05/09/21 00:40 Urine Creatinine 100.8 mg/dL (0.1-20.0) H 05/10/21 11:03 Protein/Creatinin Ratio 0.42 05/10/21 11:03 Urine Sodium 61 mmol/L 05/05/21 09:57 Urine Total Protein 42 mg/dL (5-11.8) H 05/10/21 11:03 Urine Opiates Screen Negative 05/04/21 Unknown Urine Methadone Screen Negative 05/04/21 Unknown Ur Barbiturates Screen Negative 05/04/21 Unknown Ur Phencyclidine Scrn Negative 05/04/21 Unknown Ur Amphetamines Screen Positive 05/04/21 Unknown U Benzodiazepines Scrn Negative 05/04/21 Unknown Urine Cocaine Screen Negative 05/04/21 Unknown U Marijuana (THC) Screen Negative 05/04/21 Unknown Drugs of Abuse Note Disclamer 05/04/21 Unknown AUDRA Screen Negative (Negative) 05/05/21 03:40 Proteinase 3 (PR3) Ab <1.0 AI (<1.0) 05/05/21 03:40 Myeloperoxidase Ab <1.0 AI (<1.0) 05/05/21 03:40 Complement C3 72 mg/dL (82-185) L 05/05/21 03:40 Complement C4 17 mg/dL (15-53) 05/05/21 03:40 Coronavirus (PCR) Positive (Negative) A 05/05/21 08:30 Hepatitis A IgM Ab Non-reactive (NonReactive) 05/05/21 03:40 Hep Bs Antigen Non-reactive (Negative) 05/05/21 03:40 Hep B Core IgM Ab Non-reactive (NonReactive) 05/05/21 03:40 Hepatitis C Antibody Reactive (NonReactive) A 05/05/21 03:40 Microbiology: Microbiology 05/07/21 16:16 Peripheral/Venous Blood Culture - Preliminary NO GROWTH AFTER 4 DAYS 05/07/21 16:28 Peripheral/Venous Blood Culture - Preliminary NO GROWTH AFTER 4 DAYS 05/09/21 13:53 Peripheral/Venous Blood Culture - Preliminary NO GROWTH AFTER 48 HOURS 05/09/21 13:53 Peripheral/Venous Blood Culture - Preliminary NO GROWTH AFTER 48 HOURS 05/09/21 13:22 Urine,Clean Catch Urine Culture - Preliminary Enterococcus Species Merino/IV: Voiding Method Indwelling Catheter Active Medications - Current Medications Current Medications: Generic Name Dose Route Start Last Admin Trade Name Freq PRN Reason Stop Dose Admin Acetaminophen 650 mg 05/04/21 12:34 05/11/21 11:24 Acetaminophen 325 Mg Tab PO 650 mg Q4H PRN Administration Pain MILD(1-3)/Fever >100.5/MARIA Acetaminophen 650 mg 05/07/21 16:00 05/11/21 16:25 Acetaminophen 650 Mg Rect Supp GA 650 mg Q4H PRN Administration Pain, Mild (1-3) Aspirin 81 mg 05/06/21 14:00 05/12/21 09:18 Aspirin 81 Mg Tab Chew PO 81 mg QDAY RISHI Administration Atorvastatin Calcium 40 mg 05/09/21 22:00 05/11/21 21:18 Atorvastatin 40 Mg Tab FEEDTUBE 40 mg QHS RISHI Administration Chlordiazepoxide HCl 75 mg 05/11/21 15:00 05/12/21 08:14 Chlordiazepoxide 25 Mg Cap PO 75 mg Q8H RISHI Administration Dexamethasone 8 mg 05/08/21 12:00 05/12/21 09:18 Dexamethasone 4 Mg/Ml Vial IV 05/17/21 10:01 8 mg Q24HR RISHI Administration Dextrose 0 ml 05/09/21 10:49 Dextrose 10% *Hypoglycemia IV PRN PRN Hypoglycemia Famotidine 10 mg 05/12/21 10:00 05/12/21 09:18 Famotidine 10 Mg Tab FEEDTUBE 10 mg BID RISHI Administration Fentanyl 50 mcg 05/05/21 15:21 Fentanyl 100 Mcg/2 Ml Inj IV Q10MIN PRN ANALGESIA Haloperidol Lactate 5 mg 05/09/21 18:32 05/10/21 11:10 Haloperidol Lactate 5 Mg/1 Ml Inj IV 5 mg Q6H PRN Administration Agitation Heparin Sodium (Porcine) 3,000 unit 05/11/21 14:14 Heparin 10,000 Units/10 Ml Vial IV Q6H PRN Anti-Xa Assay < 0.1 units/ml Hydralazine HCl 50 mg 05/04/21 14:00 05/12/21 06:35 Hydralazine 25 Mg Tab PO 50 mg Q8HR RISHI Administration Hydralazine HCl 10 mg 05/07/21 16:16 05/09/21 17:35 Hydralazine 20 Mg/1 Ml Inj IV 10 mg Q2H PRN Administration Blood Pressure Hydrophilic Ointment 1 applic 05/05/21 15:21 Lip Therapy Vaseline TP Q2HR PRN Dry Lips Fentanyl Citrate 2,000 mcg in 100 mls @ 4.082 mls/hr 05/05/21 16:00 05/12/21 12:30 Fentanyl Drip Premix IV 0 mcg/kg/hr TITR RISHI 0 mls/hr Titration Protocol 1 MCG/KG/HR Propofol 1,000 mg in 100 mls @ 2.449 mls/hr 05/05/21 16:00 05/09/21 06:16 Diprivan 10 Mg/Ml IV 20 mcg/kg/min TITR RISHI 9.798 mls/hr Administration Protocol 5 MCG/KG/MIN Heparin Sodium/Sodium Chloride 25,000 unit in 500 mls @ 24 mls/hr 05/11/21 15:00 05/12/21 09:15 Heparin/ 0.45% Nacl-25,000 Unit/500 Ml IV 1,200 units/hr TITR RISHI 24 mls/hr Administration Protocol 1,200 UNITS/HR Ceftriaxone Sodium 2 gm in 100 mls @ 200 mls/hr 05/12/21 10:00 Rocephin/Ns 2 Gm/100 Ml IV 05/14/21 10:29 Q24H RISHI Protocol Insulin Human Lispro 0 unit 05/10/21 09:40 05/10/21 19:12 Insulin Lispro 100 Unit/Ml SUB-Q 2 unit Q6HR PRN Administration Hyperglycemia Protocol Metoprolol Tartrate 50 mg 05/10/21 14:00 05/12/21 08:14 Metoprolol Tartrate 50 Mg Tab FEEDTUBE 50 mg TID RISHI Administration Multi-Ingred Cream/Lotion/Oil/Oint 1 applic 05/05/21 15:21 Mineral Oil/Petrolatum, White Ophth Oint 3.5 Gm OU Q4HR PRN Dry Eye(s) Ondansetron HCl 4 mg 05/04/21 12:34 05/04/21 21:51 Ondansetron 4 Mg/2 Ml Inj IV 4 mg Q8H PRN Administration Nausea And Vomiting Quetiapine Fumarate 200 mg 05/09/21 22:00 05/12/21 09:18 Quetiapine 200 Mg Tab PO 200 mg BID RISHI Administration Senna/Docusate Sodium 1 tab 05/05/21 22:00 05/12/21 09:18 Sennosides/Docusate Sodium 8.6/50 Mg Tab FEEDTUBE 1 tab BID RISHI Administration Sodium Chloride 10 ml 05/04/21 22:00 05/12/21 09:17 Sodium Chloride 0.9% 10 Ml Flush Syringe IV 10 ml BID RISHI Administration Sodium Chloride 10 ml 05/04/21 12:34 05/06/21 13:59 Sodium Chloride 0.9% 10 Ml Flush Syringe IV 10 ml PRN PRN Administration LINE FLUSH Sodium Chloride 10 ml 05/09/21 09:46 Sodium Chloride 0.9% 50 Ml Ivpb IV PRN PRN FLUSH Nutrition/Malnutrition Assess - Dietary Evaluation Nutrition/Malnutrition Findings: Nutrition Notes Start: 05/05/21 16:15 Freq: Status: Active Protocol: Document 05/11/21 16:30 MORALES (Rec: 05/11/21 16:40 MORALES [id number]) Nutrition Notes Initial or Follow up Brief Note Current Diet TF-Promote @ 60 ml/hr (since D 05/09). Height 5 ft 7 in Weight 81.647 kg [place] Body Weight (kg) 67.27 BMI 28.1 Weight change and time frame No body weight change in 2 days reported. Weight Status Overweight Subjective/Other Information RD consult for routine F/U on TF tolerance. TF continues as prescribed well tolerated. Pt continues on mechanical ventilation. Percent of energy/protein needs met: Prescribed Promote @ 60 ml/hr provides for energy/protein needs (1,444 Kcal/90 g) during LOS, 75% Kcal; 90% AA. #1 Nutrition Diagnosis Inadequate oral intake Diagnosis Progress(for reassessment Continues documentation) Is patient on ventilator? Yes Is Patient Ambulatory and/or Out of Bed No REE-([facility]-confined to bed) [phone] Calculation Used for Recommendations 70-80% of EEN Additional Notes 15-20 Kcal/Kg ABW. Protein: 1.2-2 g/Kg; 100-164 g /day. Fluids: 1 ml/Kcal, or as per MD. Nutrition Intervention Nutrition Support: Continue Promote @ 60 ml/hr. Flush: 120 ml water Q 4 hr, or as per MD. Kcal 1,444 Protein (gm) 90 Carbohydrates (gm) 188 Fat (gm) 38 Fluid (mL) 1,212 Fiber (gm) 0 % RDI: 75% Kcal; 90% AA. Goal #1 Provide at least 75% of energy /protein needs through Enteral Feeding during LOS. Follow-Up By: 05/16/21 Additional Comments Continue monitoring TF tolerance and BM. <LALA RODARTE - Last Filed: 05/19/21 12:56> Assessment and Plan Assessment and plan: I saw and evaluated the patient. Discussed with the nurse practitioner and agree with their findings and plan as documented in this note. Hospitalist Physical - Constitutional Vitals: Temp Pulse Resp BP Pulse Ox 101.6 F H 81 30 H 131/101 100 05/19/21 11:47 05/19/21 12:00 05/19/21 12:00 05/19/21 12:00 05/19/21 12:00 HEART Score - HEART Score Troponin: Troponin T 0.400 ng/mL (0.00-0.029) H* D 05/16/21 18:40 Results - Labs CBC & Chem 7: 05/19/21 05:23 05/19/21 05:23 Labs: Laboratory Last Values WBC 18.5 K/mm3 (4.5-11.0) H 05/19/21 05:23 RBC 3.31 M/mm3 (3.65-5.03) L 05/19/21 05:23 Hgb 9.9 gm/dl (11.8-15.2) L 05/19/21 05:23 Hct 31.1 % (35.5-45.6) L 05/19/21 05:23 MCV 94 fl (84-94) 05/19/21 05:23 MCH 30 pg (28-32) 05/19/21 05:23 MCHC 32 % (32-34) 05/19/21 05:23 RDW 16.9 % (13.2-15.2) H 05/19/21 05:23 Plt Count 370 K/mm3 (140-440) 05/19/21 05:23 Lymph % (Auto) Web Database Developer 05/16/21 10:21 [place] % (Auto) Web Database Developer 05/16/21 10:21 Eos % (Auto) Web Database Developer 05/16/21 10:21 Baso % (Auto) Web Database Developer 05/16/21 10:21 Lymph # (Auto) Web Database Developer 05/16/21 10:21 [place] # (Auto) Web Database Developer 05/16/21 10:21 Eos # (Auto) Web Database Developer 05/16/21 10:21 Baso # (Auto) Web Database Developer 05/16/21 10:21 Add Manual Diff Complete 05/16/21 10:21 Total Counted 100 05/16/21 10:21 Seg Neutrophils % Web Database Developer 05/16/21 10:21 Seg Neuts % (Manual) 83.0 % (40.0-70.0) H 05/16/21 10:21 Band Neutrophils % 2.0 % 05/16/21 10:21 Lymphocytes % (Manual) 4.0 % (13.4-35.0) L 05/16/21 10:21 Reactive Lymphs % (Man) 0 % 05/16/21 10:21 Monocytes % (Manual) 9.0 % (0.0-7.3) H 05/16/21 10:21 Eosinophils % (Manual) 0 % (0.0-4.3) 05/16/21 10:21 Basophils % (Manual) 0 % (0.0-1.8) 05/16/21 10:21 Metamyelocytes % 0 % 05/16/21 10:21 Myelocytes % 2.0 % 05/16/21 10:21 Promyelocytes % 0 % 05/16/21 10:21 Blast Cells % 0 % 05/16/21 10:21 Nucleated RBC % Not Reportable 05/16/21 10:21 Seg Neutrophils # Web Database Developer 05/16/21 10:21 Seg Neutrophils # Man 22.9 K/mm3 (1.8-7.7) H 05/16/21 10:21 Band Neutrophils # 0.6 K/mm3 05/16/21 10:21 Lymphocytes # (Manual) 1.1 K/mm3 (1.2-5.4) L 05/16/21 10:21 Abs React Lymphs (Man) 0.0 K/mm3 05/16/21 10:21 Monocytes # (Manual) 2.5 K/mm3 (0.0-0.8) H 05/16/21 10:21 Eosinophils # (Manual) 0.0 K/mm3 (0.0-0.4) 05/16/21 10:21 Basophils # (Manual) 0.0 K/mm3 (0.0-0.1) 05/16/21 10:21 Metamyelocytes # 0.0 K/mm3 05/16/21 10:21 Myelocytes # 0.6 K/mm3 05/16/21 10:21 Promyelocytes # 0.0 K/mm3 05/16/21 10:21 Blast Cells # 0.0 K/mm3 05/16/21 10:21 WBC Morphology Not Reportable 05/16/21 10:21 Hypersegmented Neuts Not Reportable 05/16/21 10:21 Hyposegmented Neuts Not Reportable 05/16/21 10:21 Hypogranular Neuts Not Reportable 05/16/21 10:21 Smudge Cells Not Reportable 05/16/21 10:21 Toxic Granulation Not Reportable 05/16/21 10:21 Toxic Vacuolation Not Reportable 05/16/21 10:21 Dohle Bodies Not Reportable 05/16/21 10:21 Pelger-Huet Anomaly Not Reportable 05/16/21 10:21 Jesse Rods Not Reportable 05/16/21 10:21 Platelet Estimate Consistent w auto 05/16/21 10:21 Clumped Platelets Few 05/16/21 10:21 Plt Clumps, EDTA Not Reportable 05/16/21 10:21 Large Platelets Not Reportable 05/16/21 10:21 Giant Platelets Not Reportable 05/16/21 10:21 Platelet Satelliting Not Reportable 05/16/21 10:21 Plt Morphology Comment Not Reportable 05/16/21 10:21 RBC Morphology Not Reportable 05/16/21 10:21 Dimorphic RBCs Not Reportable 05/16/21 10:21 Polychromasia Not Reportable 05/16/21 10:21 Hypochromasia Not Reportable 05/16/21 10:21 Poikilocytosis Not Reportable 05/16/21 10:21 Anisocytosis 1+ 05/16/21 10:21 Microcytosis Not Reportable 05/16/21 10:21 Macrocytosis Few 05/16/21 10:21 Spherocytes Not Reportable 05/16/21 10:21 Pappenheimer Bodies Not Reportable 05/16/21 10:21 Sickle Cells Not Reportable 05/16/21 10:21 Target Cells Not Reportable 05/16/21 10:21 Tear Drop Cells Not Reportable 05/16/21 10:21 Ovalocytes Not Reportable 05/16/21 10:21 Helmet Cells Not Reportable 05/16/21 10:21 Murphy-[place]nerdell Bodies Not Reportable 05/16/21 10:21 [place] Rings Not Reportable 05/16/21 10:21 [place] Cells Not Reportable 05/16/21 10:21 Bite Cells Not Reportable 05/16/21 10:21 Crenated Cell Not Reportable 05/16/21 10:21 Elliptocytes Not Reportable 05/16/21 10:21 Acanthocytes (Spur) Not Reportable 05/16/21 10:21 Rouleaux Not Reportable 05/16/21 10:21 Hemoglobin C Crystals Not Reportable 05/16/21 10:21 Schistocytes Not Reportable 05/16/21 10:21 Malaria parasites Not Reportable 05/16/21 10:21 Tomi Bodies Not Reportable 05/16/21 10:21 Hem Pathologist Commnt No 05/16/21 10:21 PT 15.6 Sec. (12.2-14.9) H 05/11/21 14:43 INR 1.12 (0.87-1.13) 05/11/21 14:43 APTT 30.3 Sec. (24.2-36.6) 05/11/21 14:43 D-Dimer 2730.61 ng/mlDDU (0-234) H 05/12/21 07:19 Heparin Anti-Xa Level 0.47 U.I./ml (0.3-0.7) 05/19/21 05:23 ABG pH 7.428 pH Units (7.350-7.450) 05/18/21 12:50 ABG pCO2 43.3 mm Hg 05/18/21 12:50 ABG pO2 79.6 mm Hg (80.0-90.0) L 05/18/21 12:50 ABG HCO3 28.0 mmol/L (20.0-26.0) H 05/18/21 12:50 ABG O2 Saturation 97.0 % (95.0-99.0) 05/18/21 12:50 ABG O2 Content 8.4 (0.0-44) 05/18/21 12:50 ABG Base Excess 3.3 mmol/L (-2.0-3.0) H 05/18/21 12:50 ABG Hemoglobin 6.2 gm/dl (14.0-18.0) L 05/18/21 12:50 ABG Carboxyhemoglobin 1.5 % (0.0-5.0) 05/18/21 12:50 ABG Methemoglobin 0.4 % (0.0-1.5) 05/18/21 12:50 Oxyhemoglobin 95.2 % (95.0-99.0) 05/18/21 12:50 FiO2 40 % 05/18/21 12:50 Sodium 141 mmol/L (137-145) 05/19/21 05:23 Sodium 142 mmol/L (137-145) 05/19/21 05:23 Potassium 4.5 mmol/L (3.6-5.0) 05/19/21 05:23 Potassium 4.8 mmol/L (3.6-5.0) 05/19/21 05:23 Chloride 104.8 mmol/L (98-107) 05/19/21 05:23 Chloride 105.4 mmol/L (98-107) 05/19/21 05:23 Carbon Dioxide 24 mmol/L (22-30) 05/19/21 05:23 Carbon Dioxide 26 mmol/L (22-30) 05/19/21 05:23 Anion Gap 16 mmol/L 05/19/21 05:23 Anion Gap 16 mmol/L 05/19/21 05:23 BUN 34 mg/dL (9-20) H 05/19/21 05:23 BUN 35 mg/dL (9-20) H 05/19/21 05:23 Creatinine 2.0 mg/dL (0.8-1.3) H 05/19/21 05:23 Creatinine 2.1 mg/dL (0.8-1.3) H 05/19/21 05:23 Estimated GFR 33 ml/min 05/19/21 05:23 Estimated GFR 35 ml/min 05/19/21 05:23 BUN/Creatinine Ratio 16 % 05/19/21 05:23 BUN/Creatinine Ratio 18 % 05/19/21 05:23 Glucose 90 mg/dL (75-100) 05/19/21 05:23 Glucose 94 mg/dL (75-100) 05/19/21 05:23 POC Glucose 111 mg/dL (70-105) H 05/19/21 11:24 Calcium 8.9 mg/dL (8.4-10.2) 05/19/21 05:23 Calcium 9.1 mg/dL (8.4-10.2) 05/19/21 05:23 Phosphorus 4.00 mg/dL (2.5-4.5) 05/14/21 15:44 Magnesium 2.00 mg/dL (1.7-2.3) 05/14/21 15:44 Ferritin 640.2 ng/mL (30.0-300.0) H 05/12/21 07:19 Total Bilirubin 0.60 mg/dL (0.1-1.2) 05/16/21 10:21 AST 34 units/L (5-40) 05/16/21 10:21 ALT 51 units/L (7-56) 05/16/21 10:21 Alkaline Phosphatase 74 units/L (35-129) 05/16/21 10:21 Lactate Dehydrogenase 314 units/L (91-180) H 05/12/21 07:19 Total Creatine Kinase 406 units/L (55-170) H 05/04/21 08:42 Troponin T 0.400 ng/mL (0.00-0.029) H* D 05/16/21 18:40 C-Reactive Protein 1.60 mg/dL (0.00-1.30) H 05/12/21 07:19 Total Protein 7.4 g/dL (6.3-8.2) 05/16/21 10:21 Albumin 3.1 g/dL (3.9-5) L 05/16/21 10:21 Albumin/Globulin Ratio 0.7 % 05/16/21 10:21 Triglycerides 144 mg/dL (2-149) 05/10/21 04:57 Cholesterol 140 mg/dL (50-199) 05/04/21 07:25 LDL Cholesterol Direct 89 mg/dL (50-130) 05/04/21 07:25 HDL Cholesterol 48 mg/dL (40-59) 05/04/21 07:25 Cholesterol/HDL Ratio 2.91 % 05/04/21 07:25 Procalcitonin 0.63 ng/mL (<0.15) 05/09/21 15:53 Urine Color Yellow (Yellow) 05/09/21 13:22 Urine Turbidity Turbid (Clear) 05/09/21 13:22 Urine pH 5.0 (5.0-7.0) 05/09/21 13:22 Ur Specific [place] 1.018 (1.003-1.030) 05/09/21 13:22 Urine Protein 100 mg/dl mg/dL (Negative) 05/09/21 13:22 Urine Glucose (UA) Neg mg/dL (Negative) 05/09/21 13:22 Urine Ketones Tr mg/dL (Negative) 05/09/21 13:22 Urine Blood Mod (Negative) 05/09/21 13:22 Urine Nitrite Neg (Negative) 05/09/21 13:22 Urine Bilirubin Neg (Negative) 05/09/21 13:22 Urine Urobilinogen < 2.0 mg/dL (<2.0) 05/09/21 13:22 Ur Leukocyte Esterase Mod (Negative) 05/09/21 13:22 Urine WBC (Auto) 25.0 /HPF (0.0-6.0) H 05/09/21 13:22 Urine RBC (Auto) 8.0 /HPF (0.0-6.0) 05/09/21 13:22 U Epithel Cells (Auto) < 1.0 /HPF (0-13.0) 05/09/21 13:22 Urine Bacteria (Auto) 1+ /HPF (Negative) 05/09/21 00:40 Uric Acid Crystals Few 05/09/21 00:40 Triple Phos Crystals 2+ 05/09/21 13:22 Amorphous Crystals Few 05/09/21 00:40 Urine Mucus Few /HPF 05/09/21 00:40 Urine Creatinine 100.8 mg/dL (0.1-20.0) H 05/10/21 11:03 Protein/Creatinin Ratio 0.42 05/10/21 11:03 Urine Sodium 61 mmol/L 05/05/21 09:57 Urine Total Protein 42 mg/dL (5-11.8) H 05/10/21 11:03 Urine Opiates Screen Negative 05/04/21 Unknown Urine Methadone Screen Negative 05/04/21 Unknown Ur Barbiturates Screen Negative 05/04/21 Unknown Ur Phencyclidine Scrn Negative 05/04/21 Unknown Ur Amphetamines Screen Positive 05/04/21 Unknown U Benzodiazepines Scrn Negative 05/04/21 Unknown Urine Cocaine Screen Negative 05/04/21 Unknown U Marijuana (THC) Screen Negative 05/04/21 Unknown Drugs of Abuse Note Disclamer 05/04/21 Unknown Immunofix Electrophor see below 05/05/21 03:40 AUDRA Screen Negative (Negative) 05/05/21 03:40 Proteinase 3 (PR3) Ab <1.0 AI (<1.0) 05/05/21 03:40 Myeloperoxidase Ab <1.0 AI (<1.0) 05/05/21 03:40 Complement C3 72 mg/dL (82-185) L 05/05/21 03:40 Complement C4 17 mg/dL (15-53) 05/05/21 03:40 Coronavirus (PCR) Positive (Negative) A 05/05/21 08:30 Hepatitis A IgM Ab Non-reactive (NonReactive) 05/05/21 03:40 Hep Bs Antigen Non-reactive (Negative) 05/05/21 03:40 Hep B Core IgM Ab Non-reactive (NonReactive) 05/05/21 03:40 Hepatitis C Antibody Reactive (NonReactive) A 05/05/21 03:40 Microbiology: Microbiology 05/16/21 10:31 Tracheal Aspirate Sputum Culture - Final Enterobacter Aerogenes [place]/IV: Voiding Method Indwelling Catheter Active Medications - Current Medications Current Medications: Generic Name Dose Route Start Last Admin Trade Name Freq PRN Reason Stop Dose Admin Acetaminophen 650 mg 05/04/21 12:34 05/19/21 11:47 Acetaminophen 325 Mg Tab PO 650 mg Q4H PRN Administration Pain MILD(1-3)/Fever >100.5/MARIA Acetaminophen 650 mg 05/07/21 16:00 05/11/21 16:25 Acetaminophen 650 Mg Rect Supp GA 650 mg Q4H PRN Administration Pain, Mild (1-3) Amlodipine Besylate 5 mg 05/19/21 11:00 05/19/21 10:38 Amlodipine 5 Mg Tab PO 5 mg QDAY RISHI Administration Aspirin 81 mg 05/06/21 14:00 05/19/21 09:00 Aspirin 81 Mg Tab Chew PO 81 mg QDAY RISHI Administration Atorvastatin Calcium 40 mg 05/09/21 22:00 05/18/21 21:33 Atorvastatin 40 Mg Tab FEEDTUBE 40 mg QHS RISHI Administration Chlordiazepoxide HCl 75 mg 05/11/21 15:00 05/19/21 08:55 Chlordiazepoxide 25 Mg Cap PO 75 mg Q8H RISHI Administration Dextrose 0 ml 05/09/21 10:49 05/14/21 06:55 Dextrose 10% *Hypoglycemia IV 250 ml PRN PRN Administration Hypoglycemia Famotidine 10 mg 05/17/21 10:00 05/19/21 09:00 Famotidine 10 Mg Tab FEEDTUBE 10 mg BID RISHI Administration Haloperidol Lactate 5 mg 05/09/21 18:32 05/18/21 19:52 Haloperidol Lactate 5 Mg/1 Ml Inj IV 5 mg Q6H PRN Administration Agitation Heparin Sodium (Porcine) 3,000 unit 05/11/21 14:14 Heparin 10,000 Units/10 Ml Vial IV Q6H PRN Anti-Xa Assay < 0.1 units/ml Hydralazine HCl 50 mg 05/04/21 14:00 05/19/21 08:56 Hydralazine 25 Mg Tab PO 50 mg Q8HR RISHI Administration Hydrophilic Ointment 1 applic 05/05/21 15:21 Lip Therapy Vaseline TP Q2HR PRN Dry Lips Heparin Sodium/Sodium Chloride 25,000 unit in 500 mls @ 24 mls/hr 05/11/21 15:00 05/19/21 06:59 Heparin/ 0.45% Nacl-25,000 Unit/500 Ml IV 1,550 units/hr TITR RISHI 31 mls/hr Titration Protocol 1,200 UNITS/HR Cefepime HCl 2 gm in 100 mls @ 200 mls/hr 05/18/21 18:00 05/18/21 17:27 Cefepime/Ns 2 Gm/100 Ml IV 200 mls/hr Q24H RISHI Administration Protocol Insulin Human Lispro 0 unit 05/10/21 09:40 05/12/21 16:49 Insulin Lispro 100 Unit/Ml SUB-Q 2 unit Q6HR PRN Administration Hyperglycemia Protocol Labetalol HCl 10 mg 05/15/21 10:24 Labetalol 20 Mg/4 Ml Inj IV Q4H PRN sbp> 160. Metoprolol Tartrate 50 mg 05/10/21 14:00 05/19/21 08:55 Metoprolol Tartrate 50 Mg Tab FEEDTUBE 50 mg TID RISHI Administration Multi-Ingred Cream/Lotion/Oil/Oint 1 applic 05/05/21 15:21 Mineral Oil/Petrolatum, White Ophth Oint 3.5 Gm OU Q4HR PRN Dry Eye(s) Ondansetron HCl 4 mg 05/04/21 12:34 05/04/21 21:51 Ondansetron 4 Mg/2 Ml Inj IV 4 mg Q8H PRN Administration Nausea And Vomiting Quetiapine Fumarate 100 mg 05/19/21 22:00 Quetiapine 100 Mg Tab PO BID RISHI Senna/Docusate Sodium 1 tab 05/05/21 22:00 05/19/21 09:00 Sennosides/Docusate Sodium 8.6/50 Mg Tab FEEDTUBE Not Given BID RISHI Sodium Chloride 10 ml 05/04/21 22:00 05/19/21 09:00 Sodium Chloride 0.9% 10 Ml Flush Syringe IV 10 ml BID RISHI Administration Sodium Chloride 10 ml 05/04/21 12:34 05/06/21 13:59 Sodium Chloride 0.9% 10 Ml Flush Syringe IV 10 ml PRN PRN Administration LINE FLUSH Sodium Chloride 10 ml 05/09/21 09:46 Sodium Chloride 0.9% 50 Ml Ivpb IV PRN PRN FLUSH Nutrition/Malnutrition Assess - Dietary Evaluation Nutrition/Malnutrition Findings: Nutrition Notes Start: 05/05/21 16:15 Freq: Status: Active Protocol: Document 05/16/21 10:32 ROSAURA (Rec: 05/16/21 10:48 ROSAURA [id number]) Nutrition Notes Initial or Follow up Reassessment Current Diagnosis Acute Kidney Injury, Hypertension,Heart Failure, Respiratory Failure Other Pertinent Diagnosis 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 Percent of energy/protein needs met: 75% energy 92% pro Minimum of two criteria No #1 Nutrition Diagnosis Inadequate oral intake Diagnosis Progress(for reassessment Continues documentation) Is patient on ventilator? Yes Is Patient Ambulatory and/or Out of Bed No REE-(Ambler-St. Jeor-confined to bed) 9327.938 Calculation Used for Recommendations Ambler-St Jewi Additional Notes Pro needs 1.2-2g/k-163g/ day Fluid needs 1ml/kcal Nutrition Intervention Nutrition Support: Continue Promote at 60ml/hr with 200ml water flush q4 until hypernatremia resolved. When Na lab is WNL, reduce water flush to 50ml q4h. Kcal 1,440 Protein (gm) 90 Carbohydrates (gm) 187 Fat (gm) 37 Fluid (mL) 1,208 Fiber (gm) 0 Goal #1 TF tolerance Goal #2 TF to meet at least 75% energy and pro needs Follow-Up By: 05/20/21 Additional Comments F/U: TF tolerance, Na lab/ water flushes, BG lab/need for reduced CHO formula, vent status
--- NOTE | 2021-05-12 13:13 | Progress Note ---
Assessment and Plan Acute hypoxic resp failure on MVS COVID positive NSTEMI Acute kidney injury Cardiomyopathy EF 35-40% History of hepatitis C DVT Elevated D-dimer Tobacco abuse Polysubstance abusepatient with positive methamphetamines and has a history of cocaine use Anemia - on SBT and tolerating well - continue Scheduled Librium to spare IV sedation (75mg po q8h) - continue IV Heparin re: DVT - received Kayexalate - continue to adjust anxiolytics / CIWA protocol - continue care as below otherwise; - Daily SAT and SBT assessment as tolerated - continue to wean supplemental oxygen for target O2 sat's > 90% acutely - VAP bundle addressed - continue lung protective strategies - continue bronchodilators with pulmonary hygiene per RT - wean per pulmonary driven protocols otherwise - avoid nephrotoxins, renally dose all medications - AB's per ID recommendations - continue accuchecks with glycemic control per SSI (While critically ill target blood glucose of 140-180 mg/dL; avoid hypoglycemia) - sedation prn for target RASS 0 to -1 - continue to avoid benzodiazepine's, reduce the possibility of delirium - prn analgesia per CPOT score - Maintenance of sleep-wake cycle, avoid delirium - continue enteral nutritional support at goal rate as tolerated - G.I. & VTE prophylaxis - PT/OT/ROM exercises - continue mobility protocols for pressure ulcer prophylaxis - Monitor hemodynamics closely - continue other care per attending / other consultants - discharge planning ongoing concurrently COVID SPECIFIC INTERVENTIONS - Appears to have incidental COVID infection- Remdesivir not administered s econdary to renal failure - continue systemic steroids for severe COVID-19 infection empirically (De xamethasone) - follow repeat COVID tests results - zinc and vitamin C supplementation - Monitor inflammatory markers per facility protocol - ferritin, Ddimer, CRP - therapeutic anticoagulation per system Protocol based on d-dimer and clinical considerations (on therapeutic heparin for NSTEMI) - Continue contact and airborne isolation .... Re-evaluate in am & prn CONDITION: CRITICAL PROGNOSIS: GUARDED CODE STATUS: FULL CODE The high probability of a clinically significant, sudden or life-threatening deterioration of the [respiratory, cardiovascular & neurologic] system(s) required my full and direct attention, intervention and personal management. The aggregate critical care time was [33] minutes without overlap. Time includes spent on; [x] Data Review and interpretation [x] Patient assessment and monitoring of vital signs [x] Documentation [x] Medication orders and management Subjective Date of service: 05/12/21 Principal diagnosis: AHRF; COVID-19 infection; NSTEMI; YE; HFrEF (35-40%); Polysubstance abuse Interval history: Patient is seen today for: Acute hypoxemic Resp failure; COVID-19 infection; NSTEMI; YE; HFrEF (35-40%); Polysubstance abuse; Anemia Seen and examined at bedside; 24hour events reviewed; nursing and respiratory care staff consulted; no adverse overnight events reported to me; resting in be d; remains on MVS; much calmer with addition of Librium; mild hyperkalemia today; remains non-oliguric; no emesis or overt aspiration Objective Vital Signs - 12hr 05/12/21 05/12/21 05/12/21 01:30 02:00 02:30 Temperature Pulse Rate 64 66 64 Pulse Rate [ From Monitor] Pulse Rate [ Left Radial] Pulse Rate [ Right Radial] Respiratory 20 20 20 Rate Blood Pressure 112/82 115/85 115/85 O2 Sat by Pulse 100 Oximetry 05/12/21 05/12/21 05/12/21 03:00 03:30 04:00 Temperature 100.0 F H Pulse Rate 65 65 65 Pulse Rate [ 80 From Monitor] Pulse Rate [ 80 Left Radial] Pulse Rate [ 80 Right Radial] Respiratory 20 20 20 Rate Blood Pressure 116/86 118/87 117/86 O2 Sat by Pulse 100 Oximetry 05/12/21 05/12/21 05/12/21 04:10 04:30 05:00 Temperature Pulse Rate 64 64 64 Pulse Rate [ From Monitor] Pulse Rate [ Left Radial] Pulse Rate [ Right Radial] Respiratory 20 20 Rate Blood Pressure 117/86 120/87 116/84 O2 Sat by Pulse 100 100 Oximetry 05/12/21 05/12/21 05/12/21 05:30 06:00 06:30 Temperature Pulse Rate 66 64 70 Pulse Rate [ From Monitor] Pulse Rate [ Left Radial] Pulse Rate [ Right Radial] Respiratory 20 20 18 Rate Blood Pressure 119/86 116/85 122/89 O2 Sat by Pulse 94 Oximetry 05/12/21 05/12/21 05/12/21 06:35 07:00 07:14 Temperature 99.7 F H Pulse Rate 67 65 Pulse Rate [ From Monitor] Pulse Rate [ Left Radial] Pulse Rate [ Right Radial] Respiratory 20 Rate Blood Pressure 122/89 115/83 O2 Sat by Pulse Oximetry 05/12/21 05/12/21 05/12/21 07:25 07:30 08:00 Temperature Pulse Rate 67 66 76 Pulse Rate [ From Monitor] Pulse Rate [ Left Radial] Pulse Rate [ Right Radial] Respiratory 21 21 Rate Blood Pressure 115/83 115/83 128/95 O2 Sat by Pulse 100 99 100 Oximetry 05/12/21 05/12/21 05/12/21 08:14 08:30 11:09 Temperature Pulse Rate 71 71 71 Pulse Rate [ From Monitor] Pulse Rate [ Left Radial] Pulse Rate [ Right Radial] Respiratory 21 22 Rate Blood Pressure 128/95 127/91 116/83 O2 Sat by Pulse 100 Oximetry 05/12/21 05/12/21 05/12/21 11:27 13:00 13:01 Temperature 100.5 F H Pulse Rate 72 73 Pulse Rate [ From Monitor] Pulse Rate [ Left Radial] Pulse Rate [ Right Radial] Respiratory Rate Blood Pressure 120/85 120/85 O2 Sat by Pulse Oximetry Constitutional: no acute distress (sedate), other (orally intuabted, sedated; normal respiratory effort at rest) Eyes: non-icteric ENT: oropharynx moist Neck: supple, no lymphadenopathy, no JVD Effort: normal Ascultation: Bilateral: clear, diminished breath sounds Percussion: Bilateral: not dull Cardiovascular: irregular rhythm, other (S1,S2) Gastrointestinal: normoactive bowel sounds, soft, non-tender, non-distended Integumentary: normal Extremities: no cyanosis, no edema, pulses normal, no ischemia or petechiae Neurologic: non-focal exam, pupils equal and round, CN II-XII normal, motor strength normal and Psychiatric: other (sedated) CBC and BMP: 05/12/21 07:19 05/12/21 07:19 ABG, PT/INR, D-dimer: ABG ABG pH 7.426 pH Units (7.350-7.450) 05/11/21 13:51 ABG pCO2 31.5 mm Hg 05/11/21 13:51 ABG pO2 74.9 mm Hg (80.0-90.0) L 05/11/21 13:51 ABG O2 Saturation 97.0 % (95.0-99.0) 05/11/21 13:51 PT/INR, D-dimer PT 15.6 Sec. (12.2-14.9) H 05/11/21 14:43 INR 1.12 (0.87-1.13) 05/11/21 14:43 D-Dimer 2730.61 ng/mlDDU (0-234) H 05/12/21 07:19 Abnormal lab findings: Abnormal Labs 05/04/21 05/04/21 05/04/21 07:25 07:25 07:25 WBC 12.9 H RBC 3.04 L Hgb 9.5 L Hct 28.4 L MCV RDW 15.4 H Lymph % (Auto) 11.4 L [place] % (Auto) 10.1 H Lymph # (Auto) [place] # (Auto) 1.3 H Seg Neutrophils % 78.0 H Seg Neutrophils # 10.0 H PT 15.1 H D-Dimer Heparin Anti-Xa Level ABG pH ABG pO2 ABG Base Excess ABG Hemoglobin Sodium 135 L Potassium Chloride Carbon Dioxide BUN 65 H Creatinine 3.4 H Glucose 118 H POC Glucose Calcium Ferritin Total Bilirubin 1.50 H AST 519 H ALT 475 H Lactate Dehydrogenase Total Creatine Kinase Troponin T 1.300 H* C-Reactive Protein Albumin Urine WBC (Auto) Urine Creatinine Urine Total Protein Complement C3 Coronavirus (PCR) Hepatitis C Antibody 05/04/21 05/04/21 05/04/21 07:25 08:42 08:42 WBC RBC Hgb Hct MCV RDW Lymph % (Auto) [place] % (Auto) Lymph # (Auto) [place] # (Auto) Seg Neutrophils % Seg Neutrophils # PT D-Dimer 579.49 H Heparin Anti-Xa Level ABG pH ABG pO2 ABG Base Excess ABG Hemoglobin Sodium Potassium Chloride Carbon Dioxide BUN Creatinine Glucose POC Glucose Calcium Ferritin Total Bilirubin AST ALT Lactate Dehydrogenase Total Creatine Kinase 406 H Troponin T 1.230 H* C-Reactive Protein Albumin Urine WBC (Auto) Urine Creatinine Urine Total Protein Complement C3 Coronavirus (PCR) Hepatitis C Antibody 05/04/21 05/04/21 05/04/21 10:13 13:34 18:14 WBC RBC Hgb 8.8 L Hct 26.6 L MCV RDW Lymph % (Auto) [place] % (Auto) Lymph # (Auto) [place] # (Auto) Seg Neutrophils % Seg Neutrophils # PT D-Dimer Heparin Anti-Xa Level < 0.10 L ABG pH ABG pO2 ABG Base Excess ABG Hemoglobin Sodium Potassium Chloride Carbon Dioxide BUN Creatinine Glucose POC Glucose Calcium Ferritin Total Bilirubin AST ALT Lactate Dehydrogenase Total Creatine Kinase Troponin T 1.400 H* C-Reactive Protein Albumin Urine WBC (Auto) Urine Creatinine Urine Total Protein Complement C3 Coronavirus (PCR) Hepatitis C Antibody 05/05/21 05/05/21 05/05/21 03:40 03:40 03:40 WBC RBC Hgb Hct MCV RDW Lymph % (Auto) [place] % (Auto) Lymph # (Auto) [place] # (Auto) Seg Neutrophils % Seg Neutrophils # PT D-Dimer Heparin Anti-Xa Level 0.11 L ABG pH ABG pO2 ABG Base Excess ABG Hemoglobin Sodium Potassium 3.3 L Chloride Carbon Dioxide BUN 59 H Creatinine 2.6 H Glucose 139 H POC Glucose Calcium Ferritin Total Bilirubin AST ALT Lactate Dehydrogenase Total Creatine Kinase Troponin T C-Reactive Protein Albumin Urine WBC (Auto) Urine Creatinine Urine Total Protein Complement C3 Coronavirus (PCR) Hepatitis C Antibody Reactive A 05/05/21 05/05/21 05/05/21 03:40 08:30 09:57 WBC RBC Hgb Hct MCV RDW Lymph % (Auto) [place] % (Auto) Lymph # (Auto) [place] # (Auto) Seg Neutrophils % Seg Neutrophils # PT D-Dimer Heparin Anti-Xa Level ABG pH ABG pO2 ABG Base Excess ABG Hemoglobin Sodium Potassium Chloride Carbon Dioxide BUN Creatinine Glucose POC Glucose Calcium Ferritin Total Bilirubin AST ALT Lactate Dehydrogenase Total Creatine Kinase Troponin T C-Reactive Protein Albumin Urine WBC (Auto) Urine Creatinine 100.8 H Urine Total Protein Complement C3 72 L Coronavirus (PCR) Positive A Hepatitis C Antibody 05/05/21 05/05/21 05/05/21 11:28 17:00 19:51 WBC RBC Hgb Hct MCV RDW Lymph % (Auto) [place] % (Auto) Lymph # (Auto) [place] # (Auto) Seg Neutrophils % Seg Neutrophils # PT D-Dimer Heparin Anti-Xa Level 0.10 L 0.22 L ABG pH 7.304 L ABG pO2 140.8 H ABG Base Excess -2.1 L ABG Hemoglobin 10.2 L Sodium Potassium Chloride Carbon Dioxide BUN Creatinine Glucose POC Glucose Calcium Ferritin Total Bilirubin AST ALT Lactate Dehydrogenase Total Creatine Kinase Troponin T C-Reactive Protein Albumin Urine WBC (Auto) Urine Creatinine Urine Total Protein Complement C3 Coronavirus (PCR) Hepatitis C Antibody 05/06/21 05/06/21 05/06/21 03:47 06:15 17:53 WBC RBC Hgb 9.0 L Hct 27.8 L MCV RDW Lymph % (Auto) [place] % (Auto) Lymph # (Auto) [place] # (Auto) Seg Neutrophils % Seg Neutrophils # PT D-Dimer Heparin Anti-Xa Level 0.10 L ABG pH ABG pO2 143.5 H ABG Base Excess -2.4 L ABG Hemoglobin 6.9 L Sodium Potassium Chloride Carbon Dioxide BUN Creatinine Glucose POC Glucose Calcium Ferritin Total Bilirubin AST ALT Lactate Dehydrogenase Total Creatine Kinase Troponin T C-Reactive Protein Albumin Urine WBC (Auto) Urine Creatinine Urine Total Protein Complement C3 Coronavirus (PCR) Hepatitis C Antibody 05/07/21 05/07/21 05/07/21 00:07 03:22 03:45 WBC RBC Hgb Hct MCV RDW Lymph % (Auto) [place] % (Auto) Lymph # (Auto) [place] # (Auto) Seg Neutrophils % Seg Neutrophils # PT D-Dimer Heparin Anti-Xa Level < 0.10 L ABG pH ABG pO2 104.3 H ABG Base Excess -2.6 L ABG Hemoglobin 9.1 L Sodium Potassium Chloride 107.1 H Carbon Dioxide 20 L BUN 56 H Creatinine 2.9 H Glucose POC Glucose Calcium Ferritin Total Bilirubin AST ALT Lactate Dehydrogenase Total Creatine Kinase Troponin T C-Reactive Protein Albumin Urine WBC (Auto) Urine Creatinine Urine Total Protein Complement C3 Coronavirus (PCR) Hepatitis C Antibody 05/07/21 05/07/21 05/07/21 07:44 16:28 22:41 WBC RBC Hgb Hct MCV RDW Lymph % (Auto) [place] % (Auto) Lymph # (Auto) [place] # (Auto) Seg Neutrophils % Seg Neutrophils # PT D-Dimer Heparin Anti-Xa Level < 0.10 L 0.10 L < 0.10 L ABG pH ABG pO2 ABG Base Excess ABG Hemoglobin Sodium Potassium Chloride Carbon Dioxide BUN Creatinine Glucose POC Glucose Calcium Ferritin Total Bilirubin AST ALT Lactate Dehydrogenase Total Creatine Kinase Troponin T C-Reactive Protein Albumin Urine WBC (Auto) Urine Creatinine Urine Total Protein Complement C3 Coronavirus (PCR) Hepatitis C Antibody 05/08/21 05/08/21 05/08/21 03:25 04:34 07:30 WBC 12.4 H RBC 3.02 L Hgb 9.5 L Hct 29.2 L MCV 97 H RDW 16.7 H Lymph % (Auto) 8.1 L [place] % (Auto) 11.0 H Lymph # (Auto) 1.0 L [place] # (Auto) 1.4 H Seg Neutrophils % 80.1 H Seg Neutrophils # 9.9 H PT D-Dimer Heparin Anti-Xa Level ABG pH ABG pO2 139.0 H ABG Base Excess ABG Hemoglobin 8.8 L Sodium Potassium Chloride 110.5 H Carbon Dioxide BUN 59 H Creatinine 2.8 H Glucose 103 H POC Glucose Calcium Ferritin Total Bilirubin AST ALT 327 H Lactate Dehydrogenase Total Creatine Kinase Troponin T C-Reactive Protein Albumin 3.1 L Urine WBC (Auto) Urine Creatinine Urine Total Protein Complement C3 Coronavirus (PCR) Hepatitis C Antibody 05/09/21 05/09/21 05/09/21 04:10 04:20 04:20 WBC 11.7 H RBC 2.79 L Hgb 8.7 L Hct 26.5 L MCV 95 H RDW 16.2 H Lymph % (Auto) [place] % (Auto) Lymph # (Auto) [place] # (Auto) Seg Neutrophils % Seg Neutrophils # PT D-Dimer Heparin Anti-Xa Level ABG pH ABG pO2 161.6 H ABG Base Excess ABG Hemoglobin 8.3 L Sodium 151 H Potassium Chloride 114.5 H Carbon Dioxide 21 L BUN 57 H Creatinine 2.4 H Glucose POC Glucose Calcium Ferritin Total Bilirubin AST ALT 210 H Lactate Dehydrogenase Total Creatine Kinase Troponin T C-Reactive Protein Albumin 2.9 L Urine WBC (Auto) Urine Creatinine Urine Total Protein Complement C3 Coronavirus (PCR) Hepatitis C Antibody 05/09/21 05/09/21 05/09/21 09:48 09:48 13:22 WBC 11.6 H RBC 3.00 L Hgb 9.0 L Hct 28.4 L MCV RDW 15.9 H Lymph % (Auto) 5.9 L [place] % (Auto) 8.9 H Lymph # (Auto) 0.7 L [place] # (Auto) 1.0 H Seg Neutrophils % 84.3 H Seg Neutrophils # 9.8 H PT D-Dimer Heparin Anti-Xa Level ABG pH ABG pO2 ABG Base Excess ABG Hemoglobin Sodium Potassium Chloride Carbon Dioxide BUN Creatinine Glucose POC Glucose Calcium Ferritin Total Bilirubin AST ALT Lactate Dehydrogenase Total Creatine Kinase Troponin T C-Reactive Protein 8.70 H Albumin Urine WBC (Auto) 25.0 H Urine Creatinine Urine Total Protein Complement C3 Coronavirus (PCR) Hepatitis C Antibody 05/09/21 05/09/21 05/10/21 15:20 18:16 04:57 WBC RBC 2.87 L Hgb 8.8 L Hct 27.0 L MCV RDW 15.9 H Lymph % (Auto) [place] % (Auto) Lymph # (Auto) [place] # (Auto) Seg Neutrophils % Seg Neutrophils # PT D-Dimer Heparin Anti-Xa Level ABG pH ABG pO2 102.0 H ABG Base Excess -2.8 L ABG Hemoglobin 9.0 L Sodium Potassium Chloride Carbon Dioxide BUN Creatinine Glucose POC Glucose 130 H Calcium Ferritin Total Bilirubin AST ALT Lactate Dehydrogenase Total Creatine Kinase Troponin T C-Reactive Protein Albumin Urine WBC (Auto) Urine Creatinine Urine Total Protein Complement C3 Coronavirus (PCR) Hepatitis C Antibody 05/10/21 05/10/21 05/10/21 04:57 04:57 04:57 WBC RBC Hgb Hct MCV RDW Lymph % (Auto) [place] % (Auto) Lymph # (Auto) [place] # (Auto) Seg Neutrophils % Seg Neutrophils # PT D-Dimer 1546.78 H Heparin Anti-Xa Level ABG pH ABG pO2 ABG Base Excess ABG Hemoglobin Sodium 148 H Potassium Chloride 114.9 H Carbon Dioxide 21 L BUN 57 H Creatinine 2.3 H Glucose 157 H POC Glucose Calcium Ferritin 888.2 H Total Bilirubin AST ALT Lactate Dehydrogenase 289 H Total Creatine Kinase Troponin T C-Reactive Protein 6.80 H Albumin Urine WBC (Auto) Urine Creatinine Urine Total Protein Complement C3 Coronavirus (PCR) Hepatitis C Antibody 05/10/21 05/10/21 05/10/21 05:09 08:04 11:03 WBC RBC Hgb Hct MCV RDW Lymph % (Auto) [place] % (Auto) Lymph # (Auto) [place] # (Auto) Seg Neutrophils % Seg Neutrophils # PT D-Dimer Heparin Anti-Xa Level ABG pH 7.473 H ABG pO2 114.6 H ABG Base Excess ABG Hemoglobin 9.5 L Sodium Potassium Chloride Carbon Dioxide BUN Creatinine Glucose POC Glucose 152 H Calcium Ferritin Total Bilirubin AST ALT Lactate Dehydrogenase Total Creatine Kinase Troponin T C-Reactive Protein Albumin Urine WBC (Auto) Urine Creatinine 100.8 H Urine Total Protein 42 H Complement C3 Coronavirus (PCR) Hepatitis C Antibody 05/10/21 05/10/21 05/10/21 13:07 18:01 23:31 WBC RBC Hgb Hct MCV RDW Lymph % (Auto) [place] % (Auto) Lymph # (Auto) [place] # (Auto) Seg Neutrophils % Seg Neutrophils # PT D-Dimer Heparin Anti-Xa Level ABG pH ABG pO2 ABG Base Excess ABG Hemoglobin Sodium Potassium Chloride Carbon Dioxide BUN Creatinine Glucose POC Glucose 150 H 189 H 142 H Calcium Ferritin Total Bilirubin AST ALT Lactate Dehydrogenase Total Creatine Kinase Troponin T C-Reactive Protein Albumin Urine WBC (Auto) Urine Creatinine Urine Total Protein Complement C3 Coronavirus (PCR) Hepatitis C Antibody 05/10/21 05/11/21 05/11/21 Unknown 05:25 06:53 WBC RBC Hgb Hct MCV RDW Lymph % (Auto) [place] % (Auto) Lymph # (Auto) [place] # (Auto) Seg Neutrophils % Seg Neutrophils # PT D-Dimer Heparin Anti-Xa Level ABG pH ABG pO2 126.6 H ABG Base Excess ABG Hemoglobin 9.2 L Sodium 150 H Potassium Chloride 116.6 H Carbon Dioxide 21 L BUN 62 H Creatinine 2.5 H Glucose 142 H POC Glucose 163 H Calcium Ferritin Total Bilirubin AST ALT Lactate Dehydrogenase Total Creatine Kinase Troponin T C-Reactive Protein Albumin Urine WBC (Auto) Urine Creatinine Urine Total Protein Complement C3 Coronavirus (PCR) Hepatitis C Antibody 05/11/21 05/11/21 05/11/21 06:53 11:06 13:51 WBC RBC 3.07 L Hgb 9.3 L Hct 29.0 L MCV 95 H RDW 16.1 H Lymph % (Auto) [place] % (Auto) Lymph # (Auto) [place] # (Auto) Seg Neutrophils % Seg Neutrophils # PT D-Dimer Heparin Anti-Xa Level ABG pH ABG pO2 74.9 L ABG Base Excess -3.3 L ABG Hemoglobin 10.8 L Sodium Potassium Chloride Carbon Dioxide BUN Creatinine Glucose POC Glucose 145 H Calcium Ferritin Total Bilirubin AST ALT Lactate Dehydrogenase Total Creatine Kinase Troponin T C-Reactive Protein Albumin Urine WBC (Auto) Urine Creatinine Urine Total Protein Complement C3 Coronavirus (PCR) Hepatitis C Antibody 05/11/21 05/11/21 05/11/21 14:43 14:43 15:47 WBC RBC Hgb 9.2 L Hct 29.7 L MCV RDW Lymph % (Auto) [place] % (Auto) Lymph # (Auto) [place] # (Auto) Seg Neutrophils % Seg Neutrophils # PT 15.6 H D-Dimer Heparin Anti-Xa Level ABG pH ABG pO2 ABG Base Excess ABG Hemoglobin Sodium Potassium Chloride Carbon Dioxide BUN Creatinine Glucose POC Glucose 137 H Calcium Ferritin Total Bilirubin AST ALT Lactate Dehydrogenase Total Creatine Kinase Troponin T C-Reactive Protein Albumin Urine WBC (Auto) Urine Creatinine Urine Total Protein Complement C3 Coronavirus (PCR) Hepatitis C Antibody 05/12/21 05/12/21 05/12/21 00:04 05:07 07:19 WBC 11.9 H RBC 3.00 L Hgb 9.1 L Hct 28.9 L MCV 96 H RDW 16.7 H Lymph % (Auto) 11.5 L [place] % (Auto) 8.2 H Lymph # (Auto) [place] # (Auto) 1.0 H Seg Neutrophils % 80.0 H Seg Neutrophils # 9.6 H PT D-Dimer Heparin Anti-Xa Level ABG pH ABG pO2 ABG Base Excess ABG Hemoglobin Sodium Potassium Chloride Carbon Dioxide BUN Creatinine Glucose POC Glucose 121 H 117 H Calcium Ferritin Total Bilirubin AST ALT Lactate Dehydrogenase Total Creatine Kinase Troponin T C-Reactive Protein Albumin Urine WBC (Auto) Urine Creatinine Urine Total Protein Complement C3 Coronavirus (PCR) Hepatitis C Antibody 05/12/21 05/12/21 05/12/21 07:19 07:19 07:19 WBC RBC Hgb Hct MCV RDW Lymph % (Auto) [place] % (Auto) Lymph # (Auto) [place] # (Auto) Seg Neutrophils % Seg Neutrophils # PT D-Dimer 2730.61 H Heparin Anti-Xa Level ABG pH ABG pO2 ABG Base Excess ABG Hemoglobin Sodium 146 H Potassium 5.1 H Chloride 112.4 H Carbon Dioxide 21 L BUN 61 H Creatinine 2.2 H Glucose 136 H POC Glucose Calcium 8.1 L Ferritin 640.2 H Total Bilirubin AST ALT Lactate Dehydrogenase 314 H Total Creatine Kinase Troponin T C-Reactive Protein 1.60 H Albumin Urine WBC (Auto) Urine Creatinine Urine Total Protein Complement C3 Coronavirus (PCR) Hepatitis C Antibody 05/12/21 11:10 WBC RBC Hgb Hct MCV RDW Lymph % (Auto) [place] % (Auto) Lymph # (Auto) [place] # (Auto) Seg Neutrophils % Seg Neutrophils # PT D-Dimer Heparin Anti-Xa Level ABG pH ABG pO2 ABG Base Excess ABG Hemoglobin Sodium Potassium Chloride Carbon Dioxide BUN Creatinine Glucose POC Glucose 131 H Calcium Ferritin Total Bilirubin AST ALT Lactate Dehydrogenase Total Creatine Kinase Troponin T C-Reactive Protein Albumin Urine WBC (Auto) Urine Creatinine Urine Total Protein Complement C3 Coronavirus (PCR) Hepatitis C Antibody Chest x-ray: image reviewed (stable mild basilar infiltrates / atelectasis) Allied health notes reviewed: nursing
--- NOTE | 2021-05-12 13:23 | Progress Note ---
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 UOP and lytes are stable. Creatinine is 2.3->2.5->2.2 * Continue IVF as tolerated to maintain euvolemia, note non-oliguric urine output, currently not on any fluids * Serum sodium higher improving 151->148->150->146, continue free water flushes with TFs * Await pending serologies and urine lytes- ANCA negative, AUDRA negative, C4 WNL. C3 mildly low at 72, no change to management for now. Urine protein/ creatinine minimal at 0.4g * Renal ultrasound reviewed - will need follow up CT once stable * Continue antiHTN medications * Cardiology recommendations noted * Dose medications for renal function * Avoid potential nephrotoxins * Strict I/O Subjective Date of service: 05/12/21 Principal diagnosis: AHRF; COVID-19 infection; NSTEMI; YE; HFrEF (35-40%); Polysubstance abuse Interval history: Patient remains intubated. Chart, vitals, labs reviewed. FiO2 30%, off 1/2NS at 75cc/hr Objective - Exam Narrative Exam: Direct examination deferred in setting of COVID-19 pandemic. Primary team exam reviewed in detail - Vital Signs Vital signs: Vital Signs - 12hr 05/12/21 05/12/21 05/12/21 01:30 02:00 02:30 Temperature Pulse Rate 64 66 64 Pulse Rate [ From Monitor] Pulse Rate [ Left Radial] Pulse Rate [ Right Radial] Respiratory 20 20 20 Rate Blood Pressure 112/82 115/85 115/85 O2 Sat by Pulse 100 Oximetry 05/12/21 05/12/21 05/12/21 03:00 03:30 04:00 Temperature 100.0 F H Pulse Rate 65 65 65 Pulse Rate [ 80 From Monitor] Pulse Rate [ 80 Left Radial] Pulse Rate [ 80 Right Radial] Respiratory 20 20 20 Rate Blood Pressure 116/86 118/87 117/86 O2 Sat by Pulse 100 Oximetry 05/12/21 05/12/21 05/12/21 04:10 04:30 05:00 Temperature Pulse Rate 64 64 64 Pulse Rate [ From Monitor] Pulse Rate [ Left Radial] Pulse Rate [ Right Radial] Respiratory 20 20 Rate Blood Pressure 117/86 120/87 116/84 O2 Sat by Pulse 100 100 Oximetry 05/12/21 05/12/21 05/12/21 05:30 06:00 06:30 Temperature Pulse Rate 66 64 70 Pulse Rate [ From Monitor] Pulse Rate [ Left Radial] Pulse Rate [ Right Radial] Respiratory 20 20 18 Rate Blood Pressure 119/86 116/85 122/89 O2 Sat by Pulse 94 Oximetry 05/12/21 05/12/21 05/12/21 06:35 07:00 07:14 Temperature 99.7 F H Pulse Rate 67 65 Pulse Rate [ From Monitor] Pulse Rate [ Left Radial] Pulse Rate [ Right Radial] Respiratory 20 Rate Blood Pressure 122/89 115/83 O2 Sat by Pulse Oximetry 05/12/21 05/12/21 05/12/21 07:25 07:30 08:00 Temperature Pulse Rate 67 66 76 Pulse Rate [ From Monitor] Pulse Rate [ Left Radial] Pulse Rate [ Right Radial] Respiratory 21 21 Rate Blood Pressure 115/83 115/83 128/95 O2 Sat by Pulse 100 99 100 Oximetry 05/12/21 05/12/21 05/12/21 08:14 08:30 11:09 Temperature Pulse Rate 71 71 71 Pulse Rate [ From Monitor] Pulse Rate [ Left Radial] Pulse Rate [ Right Radial] Respiratory 21 22 Rate Blood Pressure 128/95 127/91 116/83 O2 Sat by Pulse 100 Oximetry 05/12/21 05/12/21 05/12/21 11:27 13:00 13:01 Temperature 100.5 F H Pulse Rate 72 73 Pulse Rate [ From Monitor] Pulse Rate [ Left Radial] Pulse Rate [ Right Radial] Respiratory Rate Blood Pressure 120/85 120/85 O2 Sat by Pulse Oximetry - Lab 05/12/21 07:19 05/12/21 07:19 Most recent lab results ABG pH 7.426 pH Units (7.350-7.450) 05/11/21 13:51 ABG pCO2 31.5 mm Hg 05/11/21 13:51 ABG pO2 74.9 mm Hg (80.0-90.0) L 05/11/21 13:51 ABG HCO3 20.3 mmol/L (20.0-26.0) 05/11/21 13:51 ABG O2 Saturation 97.0 % (95.0-99.0) 05/11/21 13:51 Calcium 8.1 mg/dL (8.4-10.2) L 05/12/21 07:19 Magnesium 2.30 mg/dL (1.7-2.3) 05/10/21 04:57 Urine Creatinine 100.8 mg/dL (0.1-20.0) H 05/10/21 11:03 Urine Sodium 61 mmol/L 05/05/21 09:57 Urine Total Protein 42 mg/dL (5-11.8) H 05/10/21 11:03 Medications & Allergies - Medications Allergies/Adverse Reactions: Allergies No Known Allergies Allergy (Verified 05/08/21 07:47) Home Medications: Home Medications Medication Instructions Recorded Confirmed Last Taken Type Cefpodoxime Proxetil 200 mg PO Q12H #10 tablet 09/11/20 Unknown Rx Famotidine [Pepcid] 20 mg PO BID #30 tablet 04/13/21 Unknown Rx Losartan [Cozaar] 100 mg PO QDAY #60 tablet 04/13/21 Unknown Rx Metoprolol Xl [Metoprolol 25 mg PO QDAY #30 tablet 04/13/21 Unknown Rx SUCCINATE ER TAB] NIFEdipine XL [Procardia Xl] 60 mg PO Q12HR #60 tablet 04/13/21 Unknown Rx hydrALAZINE [Apresoline TAB] 50 mg PO Q8HR #180 tablet 04/13/21 Unknown Rx Active Medications: Generic Name Dose Route Start Last Admin Trade Name Freq PRN Reason Stop Dose Admin Acetaminophen 650 mg 05/04/21 12:34 05/11/21 11:24 Acetaminophen 325 Mg Tab PO 650 mg Q4H PRN Administration Pain MILD(1-3)/Fever >100.5/MARIA Acetaminophen 650 mg 05/07/21 16:00 05/11/21 16:25 Acetaminophen 650 Mg Rect Supp CA 650 mg Q4H PRN Administration Pain, Mild (1-3) Aspirin 81 mg 05/06/21 14:00 05/12/21 09:18 Aspirin 81 Mg Tab Chew PO 81 mg QDAY RISHI Administration Atorvastatin Calcium 40 mg 05/09/21 22:00 05/11/21 21:18 Atorvastatin 40 Mg Tab FEEDTUBE 40 mg QHS RISHI Administration Chlordiazepoxide HCl 75 mg 05/11/21 15:00 05/12/21 08:14 Chlordiazepoxide 25 Mg Cap PO 75 mg Q8H RISHI Administration Dexamethasone 8 mg 05/08/21 12:00 05/12/21 09:18 Dexamethasone 4 Mg/Ml Vial IV 05/17/21 10:01 8 mg Q24HR RISHI Administration Dextrose 0 ml 05/09/21 10:49 Dextrose 10% *Hypoglycemia IV PRN PRN Hypoglycemia Famotidine 10 mg 05/12/21 10:00 05/12/21 09:18 Famotidine 10 Mg Tab FEEDTUBE 10 mg BID RISHI Administration Fentanyl 50 mcg 05/05/21 15:21 Fentanyl 100 Mcg/2 Ml Inj IV Q10MIN PRN ANALGESIA Haloperidol Lactate 5 mg 05/09/21 18:32 05/10/21 11:10 Haloperidol Lactate 5 Mg/1 Ml Inj IV 5 mg Q6H PRN Administration Agitation Heparin Sodium (Porcine) 3,000 unit 05/11/21 14:14 Heparin 10,000 Units/10 Ml Vial IV Q6H PRN Anti-Xa Assay < 0.1 units/ml Hydralazine HCl 50 mg 05/04/21 14:00 05/12/21 13:00 Hydralazine 25 Mg Tab PO 50 mg Q8HR RISHI Administration Hydralazine HCl 10 mg 05/07/21 16:16 05/09/21 17:35 Hydralazine 20 Mg/1 Ml Inj IV 10 mg Q2H PRN Administration Blood Pressure Hydrophilic Ointment 1 applic 05/05/21 15:21 Lip Therapy Vaseline TP Q2HR PRN Dry Lips Fentanyl Citrate 2,000 mcg in 100 mls @ 4.082 mls/hr 05/05/21 16:00 05/12/21 12:30 Fentanyl Drip Premix IV 0 mcg/kg/hr TITR RISHI 0 mls/hr Titration Protocol 1 MCG/KG/HR Propofol 1,000 mg in 100 mls @ 2.449 mls/hr 05/05/21 16:00 05/09/21 06:16 Diprivan 10 Mg/Ml IV 20 mcg/kg/min TITR RISHI 9.798 mls/hr Administration Protocol 5 MCG/KG/MIN Heparin Sodium/Sodium Chloride 25,000 unit in 500 mls @ 24 mls/hr 05/11/21 15:00 05/12/21 09:15 Heparin/ 0.45% Nacl-25,000 Unit/500 Ml IV 1,200 units/hr TITR RISHI 24 mls/hr Administration Protocol 1,200 UNITS/HR Ceftriaxone Sodium 2 gm in 100 mls @ 200 mls/hr 05/12/21 10:00 05/12/21 11:01 Rocephin/Ns 2 Gm/100 Ml IV 05/14/21 10:29 200 mls/hr Q24H RISHI Administration Protocol Insulin Human Lispro 0 unit 05/10/21 09:40 05/10/21 19:12 Insulin Lispro 100 Unit/Ml SUB-Q 2 unit Q6HR PRN Administration Hyperglycemia Protocol Metoprolol Tartrate 50 mg 05/10/21 14:00 05/12/21 13:01 Metoprolol Tartrate 50 Mg Tab FEEDTUBE 50 mg TID RISHI Administration Multi-Ingred Cream/Lotion/Oil/Oint 1 applic 05/05/21 15:21 Mineral Oil/Petrolatum, White Ophth Oint 3.5 Gm OU Q4HR PRN Dry Eye(s) Ondansetron HCl 4 mg 05/04/21 12:34 05/04/21 21:51 Ondansetron 4 Mg/2 Ml Inj IV 4 mg Q8H PRN Administration Nausea And Vomiting Quetiapine Fumarate 200 mg 05/09/21 22:00 05/12/21 09:18 Quetiapine 200 Mg Tab PO 200 mg BID RISHI Administration Senna/Docusate Sodium 1 tab 05/05/21 22:00 05/12/21 09:18 Sennosides/Docusate Sodium 8.6/50 Mg Tab FEEDTUBE 1 tab BID RISHI Administration Sodium Chloride 10 ml 05/04/21 22:00 05/12/21 09:17 Sodium Chloride 0.9% 10 Ml Flush Syringe IV 10 ml BID RISHI Administration Sodium Chloride 10 ml 05/04/21 12:34 05/06/21 13:59 Sodium Chloride 0.9% 10 Ml Flush Syringe IV 10 ml PRN PRN Administration LINE FLUSH Sodium Chloride 10 ml 05/09/21 09:46 Sodium Chloride 0.9% 50 Ml Ivpb IV PRN PRN FLUSH
--- NOTE | 2021-05-12 13:37 | Progress Note ---
Assessment and Plan Cultures: Blood culture 05/07/2021 no growth so far Blood culture 05/10/2021 no growth so far A/P: 56 yo M PMHx smoking, a fin, HTN, medication non-compliance #Severe COVID-19 pneumonia: Patient presented with a week of symptoms, chest x-r ay with diffuse bilateral infiltrates, admission O2 sats decreased on room air. Inflammatory markers elevated #Acute hypoxemic respiratory failure: Likely secondary to COVID-19 infection. Currently on the vent #YE: Renally dose medications Recommendations: -Dexamethasone 6 mg IV/PO daily for 10 days -Not a candidate for remdesivir -Obtain q48-72h inflammatory markers - ferritin, Ddimer, CRP, LDH -Procal mildly elevated, though in the setting of YE. Started ceftriaxone 2g q24h for 5 days -Fever curve improving. If worsening will escalate to cefepime. -Anticoagulation per hospital protocol -Proning as able Thank you for the consult, we will continue to follow. Roque Bacon MD [facility] ([facility] O: [phone] F: [phone] Subjective Date of service: 05/12/21 Principal diagnosis: AHRF; COVID-19 infection; NSTEMI; YE; HFrEF (35-40%); Polysubstance abuse Interval history: Improving fever: T-max now 100.5. White count 11.9 urine culture grew Enteroc occus Imaging personally viewed: Chest x-ray: Increasing opacities in bilateral lower lungs Objective - Exam Narrative Exam: Physical exam deferred to reduce risk of transmission of COVID-19. Please refer to primary team's note. - Constitutional Vitals: Vital Signs Temp Pulse Resp BP Pulse Ox 100.5 F H 73 22 120/85 100 05/12/21 11:27 05/12/21 13:01 05/12/21 11:09 05/12/21 13:01 05/12/21 11:09 Temperature -Last 24 Hours Temperature 100.5 F Temperature 99.7 F Temperature 100.0 F Temperature 99.6 F Temperature 98.4 F Temperature 102.1 F - Labs CBC & Chem 7: 05/12/21 07:19 05/12/21 07:19 Labs: Abnormal lab results 05/11/21 05/11/21 05/11/21 Range/Units 13:51 14:43 14:43 WBC (4.5-11.0) K/mm3 RBC (3.65-5.03) M/mm3 Hgb 9.2 L (11.8-15.2) gm/dl Hct 29.7 L (35.5-45.6) % MCV (84-94) fl RDW (13.2-15.2) % Lymph % (Auto) (13.4-35.0) % [place] % (Auto) (0.0-7.3) % [place] # (Auto) (0.0-0.8) K/mm3 Seg Neutrophils % (40.0-70.0) % Seg Neutrophils # (1.8-7.7) K/mm3 PT 15.6 H (12.2-14.9) Sec. D-Dimer (0-234) ng/mlDDU ABG pO2 74.9 L (80.0-90.0) mm Hg ABG Base Excess -3.3 L (-2.0-3.0) mmol/L ABG Hemoglobin 10.8 L (14.0-18.0) gm/dl Sodium (137-145) mmol/L Potassium (3.6-5.0) mmol/L Chloride (98-107) mmol/L Carbon Dioxide (22-30) mmol/L BUN (9-20) mg/dL Creatinine (0.8-1.3) mg/dL Glucose (75-100) mg/dL POC Glucose (70-105) mg/dL Calcium (8.4-10.2) mg/dL Ferritin (30.0-300.0) ng/mL Lactate Dehydrogenase (91-180) units/L C-Reactive Protein (0.00-1.30) mg/dL 05/11/21 05/12/21 05/12/21 Range/Units 15:47 00:04 05:07 WBC (4.5-11.0) K/mm3 RBC (3.65-5.03) M/mm3 Hgb (11.8-15.2) gm/dl Hct (35.5-45.6) % MCV (84-94) fl RDW (13.2-15.2) % Lymph % (Auto) (13.4-35.0) % [place] % (Auto) (0.0-7.3) % [place] # (Auto) (0.0-0.8) K/mm3 Seg Neutrophils % (40.0-70.0) % Seg Neutrophils # (1.8-7.7) K/mm3 PT (12.2-14.9) Sec. D-Dimer (0-234) ng/mlDDU ABG pO2 (80.0-90.0) mm Hg ABG Base Excess (-2.0-3.0) mmol/L ABG Hemoglobin (14.0-18.0) gm/dl Sodium (137-145) mmol/L Potassium (3.6-5.0) mmol/L Chloride (98-107) mmol/L Carbon Dioxide (22-30) mmol/L BUN (9-20) mg/dL Creatinine (0.8-1.3) mg/dL Glucose (75-100) mg/dL POC Glucose 137 H 121 H 117 H (70-105) mg/dL Calcium (8.4-10.2) mg/dL Ferritin (30.0-300.0) ng/mL Lactate Dehydrogenase (91-180) units/L C-Reactive Protein (0.00-1.30) mg/dL 05/12/21 05/12/21 05/12/21 Range/Units 07:19 07:19 07:19 WBC 11.9 H (4.5-11.0) K/mm3 RBC 3.00 L (3.65-5.03) M/mm3 Hgb 9.1 L (11.8-15.2) gm/dl Hct 28.9 L (35.5-45.6) % MCV 96 H (84-94) fl RDW 16.7 H (13.2-15.2) % Lymph % (Auto) 11.5 L (13.4-35.0) % [place] % (Auto) 8.2 H (0.0-7.3) % [place] # (Auto) 1.0 H (0.0-0.8) K/mm3 Seg Neutrophils % 80.0 H (40.0-70.0) % Seg Neutrophils # 9.6 H (1.8-7.7) K/mm3 PT (12.2-14.9) Sec. D-Dimer 2730.61 H (0-234) ng/mlDDU ABG pO2 (80.0-90.0) mm Hg ABG Base Excess (-2.0-3.0) mmol/L ABG Hemoglobin (14.0-18.0) gm/dl Sodium 146 H (137-145) mmol/L Potassium 5.1 H (3.6-5.0) mmol/L Chloride 112.4 H (98-107) mmol/L Carbon Dioxide 21 L (22-30) mmol/L BUN 61 H (9-20) mg/dL Creatinine 2.2 H (0.8-1.3) mg/dL Glucose 136 H (75-100) mg/dL POC Glucose (70-105) mg/dL Calcium 8.1 L (8.4-10.2) mg/dL Ferritin (30.0-300.0) ng/mL Lactate Dehydrogenase 314 H (91-180) units/L C-Reactive Protein 1.60 H (0.00-1.30) mg/dL 05/12/21 05/12/21 Range/Units 07:19 11:10 WBC (4.5-11.0) K/mm3 RBC (3.65-5.03) M/mm3 Hgb (11.8-15.2) gm/dl Hct (35.5-45.6) % MCV (84-94) fl RDW (13.2-15.2) % Lymph % (Auto) (13.4-35.0) % [place] % (Auto) (0.0-7.3) % [place] # (Auto) (0.0-0.8) K/mm3 Seg Neutrophils % (40.0-70.0) % Seg Neutrophils # (1.8-7.7) K/mm3 PT (12.2-14.9) Sec. D-Dimer (0-234) ng/mlDDU ABG pO2 (80.0-90.0) mm Hg ABG Base Excess (-2.0-3.0) mmol/L ABG Hemoglobin (14.0-18.0) gm/dl Sodium (137-145) mmol/L Potassium (3.6-5.0) mmol/L Chloride (98-107) mmol/L Carbon Dioxide (22-30) mmol/L BUN (9-20) mg/dL Creatinine (0.8-1.3) mg/dL Glucose (75-100) mg/dL POC Glucose 131 H (70-105) mg/dL Calcium (8.4-10.2) mg/dL Ferritin 640.2 H (30.0-300.0) ng/mL Lactate Dehydrogenase (91-180) units/L C-Reactive Protein (0.00-1.30) mg/dL
[2021-05-12] MEDS: INSULIN LISPRO 100 UNIT/ML SUB-Q PRN (16:49)
[2021-05-12] MEDS ORDERED: VANCOMYCIN 1,250 MG in SODIUM CHLORIDE 0.9% 250ML 250 ML IV SCH (18:00)
[2021-05-12] MEDS: fentaNYL DRIP Premix 2,000 MCG/100 ML BAG IV SCH (19:39)
[2021-05-13] MEDS: FREE WATER PO SCH ×5 (02:00→22:07)
[2021-05-13] MEDS: HEPARIN/ 0.45% NACL DRIP 25,000 UNIT/500 ML BAG IV SCH ×2 (05:08→22:07)
[2021-05-13] MEDS: hydrALAZINE 25 MG TAB PO SCH ×3 (05:10→22:08)
[2021-05-13 05:27] LABS: Hematocrit 26.9 % (35.5-45.6); Hemoglobin 8.5 gm/dl (11.8-15.2); Mean Corpuscular HGB Conc 32 % (32-34); Mean Corpuscular Volume 94 fl (84-94); Platelet Count 220 K/mm3 (140-440); Red Blood Count 2.86 M/mm3 (3.65-5.03); Red Cell Distribution Width 15.7 % (13.2-15.2)
[2021-05-13 05:39] LABS: Calcium 8.3 mg/dL (8.4-10.2)
[2021-05-13] MEDS: chlordiazePOXIDE 25 MG CAP PO SCH ×2 (09:19→23:22)
[2021-05-13] MEDS: METOPROLOL TARTRATE 50 MG TAB FEEDTUBE SCH ×3 (09:23→20:47)
--- NOTE | 2021-05-13 09:46 | Progress Note ---
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 UOP and lytes are stable. Creatinine is 2.3->2.5->2.2->1.9 * IVF prn as tolerated to maintain euvolemia, note non-oliguric urine output, currently not on any fluids * Serum sodium higher improving 151->148->150->146->145, continue free water flushes with TFs * Await pending serologies and urine lytes- ANCA negative, AUDRA negative, C4 WNL. C3 mildly low at 72, no change to management for now. Urine pro tein/creatinine minimal at 0.4g * Renal ultrasound reviewed - will need follow up CT once stable * Continue antiHTN medications * Cardiology, ICU input noted * Dose medications for renal function * Avoid potential nephrotoxins * Strict I/O Subjective Date of service: 05/13/21 Principal diagnosis: AHRF; COVID-19 infection; NSTEMI; YE; HFrEF (35-40%); Polysubstance abuse Interval history: Patient remains intubated. Chart, vitals, labs reviewed. FiO2 30%, off 1/2NS at 75cc/hr, no pressors Objective - Exam Narrative Exam: Direct examination deferred in setting of COVID-19 pandemic. Primary team exam reviewed in detail - Vital Signs Vital signs: Vital Signs - 12hr 05/12/21 05/12/21 05/12/21 22:00 22:11 22:21 Temperature Pulse Rate 64 64 70 Pulse Rate [ From Monitor] Respiratory 20 20 15 Rate Blood Pressure 134/92 134/92 134/92 O2 Sat by Pulse 99 100 99 Oximetry 05/12/21 05/12/21 05/12/21 22:30 22:31 22:41 Temperature Pulse Rate 65 66 64 Pulse Rate [ From Monitor] Respiratory 20 20 Rate Blood Pressure 140/99 140/99 140/99 O2 Sat by Pulse 100 100 Oximetry 05/12/21 05/12/21 05/12/21 22:51 23:00 23:11 Temperature Pulse Rate 68 66 67 Pulse Rate [ From Monitor] Respiratory 20 18 20 Rate Blood Pressure 140/99 146/101 146/101 O2 Sat by Pulse 100 100 100 Oximetry 05/12/21 05/12/21 05/12/21 23:21 23:30 23:41 Temperature Pulse Rate 65 64 63 Pulse Rate [ From Monitor] Respiratory 20 20 20 Rate Blood Pressure 146/101 129/91 129/91 O2 Sat by Pulse 100 100 100 Oximetry 05/12/21 05/12/21 05/13/21 23:46 23:51 00:00 Temperature 99.3 F Pulse Rate 64 62 59 L Pulse Rate [ 69 From Monitor] Respiratory 20 20 Rate Blood Pressure 129/91 129/91 120/85 O2 Sat by Pulse 100 100 100 Oximetry 05/13/21 05/13/21 05/13/21 00:01 00:11 00:21 Temperature Pulse Rate 61 61 61 Pulse Rate [ From Monitor] Respiratory 20 20 20 Rate Blood Pressure 120/85 120/85 120/85 O2 Sat by Pulse 100 100 100 Oximetry 05/13/21 05/13/21 05/13/21 00:30 00:41 00:51 Temperature Pulse Rate 61 60 61 Pulse Rate [ From Monitor] Respiratory 20 20 20 Rate Blood Pressure 112/83 112/83 112/83 O2 Sat by Pulse 100 100 100 Oximetry 05/13/21 05/13/21 05/13/21 01:00 01:11 01:21 Temperature Pulse Rate 60 60 59 L Pulse Rate [ From Monitor] Respiratory 20 20 20 Rate Blood Pressure 113/81 113/81 113/81 O2 Sat by Pulse 100 100 100 Oximetry 05/13/21 05/13/21 05/13/21 01:30 01:41 01:51 Temperature Pulse Rate 59 L 59 L 59 L Pulse Rate [ From Monitor] Respiratory 20 20 20 Rate Blood Pressure 115/83 115/83 115/83 O2 Sat by Pulse 100 100 100 Oximetry 05/13/21 05/13/21 05/13/21 02:00 02:11 02:21 Temperature Pulse Rate 58 L 59 L 61 Pulse Rate [ From Monitor] Respiratory 20 19 13 Rate Blood Pressure 116/83 116/83 116/83 O2 Sat by Pulse 100 100 100 Oximetry 05/13/21 05/13/21 05/13/21 02:30 02:41 02:51 Temperature Pulse Rate 60 59 L 59 L Pulse Rate [ From Monitor] Respiratory 20 20 20 Rate Blood Pressure 111/79 111/79 111/79 O2 Sat by Pulse 100 100 100 Oximetry 05/13/21 05/13/21 05/13/21 03:00 03:10 03:20 Temperature Pulse Rate 60 59 L 59 L Pulse Rate [ From Monitor] Respiratory 20 20 20 Rate Blood Pressure 105/74 105/74 105/74 O2 Sat by Pulse 100 100 100 Oximetry 05/13/21 05/13/21 05/13/21 03:30 03:35 03:40 Temperature 99.8 F H Pulse Rate 58 L 58 L Pulse Rate [ From Monitor] Respiratory 20 20 Rate Blood Pressure 108/77 108/77 O2 Sat by Pulse 100 99 Oximetry 05/13/21 05/13/21 05/13/21 03:50 04:00 04:10 Temperature Pulse Rate 58 L 59 L 58 L Pulse Rate [ 69 From Monitor] Respiratory 20 20 14 Rate Blood Pressure 108/77 104/73 104/73 O2 Sat by Pulse 99 98 98 Oximetry 05/13/21 05/13/21 05/13/21 04:13 04:21 04:30 Temperature Pulse Rate 57 L 57 L 58 L Pulse Rate [ From Monitor] Respiratory 20 20 Rate Blood Pressure 104/73 105/74 105/73 O2 Sat by Pulse 100 99 98 Oximetry 05/13/21 05/13/21 05/13/21 04:41 04:51 05:00 Temperature Pulse Rate 58 L 57 L 58 L Pulse Rate [ From Monitor] Respiratory 20 20 20 Rate Blood Pressure 105/73 105/73 109/76 O2 Sat by Pulse 98 97 96 Oximetry 05/13/21 05/13/21 05/13/21 05:10 05:11 05:21 Temperature Pulse Rate 57 L 57 L 57 L Pulse Rate [ From Monitor] Respiratory 20 20 Rate Blood Pressure 109/76 109/76 109/76 O2 Sat by Pulse 97 99 Oximetry 05/13/21 05/13/21 05/13/21 05:30 05:41 05:51 Temperature Pulse Rate 57 L 57 L 57 L Pulse Rate [ From Monitor] Respiratory 20 20 20 Rate Blood Pressure 104/74 104/74 104/74 O2 Sat by Pulse 98 99 99 Oximetry 05/13/21 05/13/21 05/13/21 06:00 06:11 06:21 Temperature Pulse Rate 56 L 56 L 57 L Pulse Rate [ From Monitor] Respiratory 20 20 20 Rate Blood Pressure 104/72 104/72 104/72 O2 Sat by Pulse 100 99 100 Oximetry 05/13/21 05/13/21 05/13/21 06:30 06:41 06:51 Temperature Pulse Rate 57 L 58 L 59 L Pulse Rate [ From Monitor] Respiratory 20 20 20 Rate Blood Pressure 104/74 104/74 104/74 O2 Sat by Pulse 100 100 100 Oximetry 05/13/21 05/13/21 05/13/21 07:00 07:11 07:21 Temperature Pulse Rate 58 L 59 L 59 L Pulse Rate [ From Monitor] Respiratory 20 20 20 Rate Blood Pressure 109/76 109/76 109/76 O2 Sat by Pulse 100 100 100 Oximetry 05/13/21 05/13/21 05/13/21 07:30 07:41 07:46 Temperature Pulse Rate 59 L 59 L 59 L Pulse Rate [ From Monitor] Respiratory 20 20 Rate Blood Pressure 110/76 110/76 110/76 O2 Sat by Pulse 100 100 100 Oximetry 05/13/21 05/13/21 05/13/21 07:51 07:56 08:00 Temperature 98.3 F Pulse Rate 61 59 L 59 L Pulse Rate [ 61 From Monitor] Respiratory 15 12 13 Rate Blood Pressure 110/76 110/76 114/80 O2 Sat by Pulse 99 100 100 Oximetry 05/13/21 05/13/21 08:11 08:21 Temperature Pulse Rate 60 61 Pulse Rate [ From Monitor] Respiratory 11 L 12 Rate Blood Pressure 114/80 114/80 O2 Sat by Pulse 100 100 Oximetry - Lab 05/13/21 04:20 05/13/21 04:20 Most recent lab results ABG pH 7.426 pH Units (7.350-7.450) 05/11/21 13:51 ABG pCO2 31.5 mm Hg 05/11/21 13:51 ABG pO2 74.9 mm Hg (80.0-90.0) L 05/11/21 13:51 ABG HCO3 20.3 mmol/L (20.0-26.0) 05/11/21 13:51 ABG O2 Saturation 97.0 % (95.0-99.0) 05/11/21 13:51 Calcium 8.3 mg/dL (8.4-10.2) L 05/13/21 04:20 Magnesium 2.30 mg/dL (1.7-2.3) 05/10/21 04:57 Urine Creatinine 100.8 mg/dL (0.1-20.0) H 05/10/21 11:03 Urine Sodium 61 mmol/L 05/05/21 09:57 Urine Total Protein 42 mg/dL (5-11.8) H 05/10/21 11:03 Medications & Allergies - Medications Allergies/Adverse Reactions: Allergies No Known Allergies Allergy (Verified 05/08/21 07:47) Home Medications: Home Medications Medication Instructions Recorded Confirmed Last Taken Type Cefpodoxime Proxetil 200 mg PO Q12H #10 tablet 09/11/20 Unknown Rx Famotidine [Pepcid] 20 mg PO BID #30 tablet 04/13/21 Unknown Rx Losartan [Cozaar] 100 mg PO QDAY #60 tablet 04/13/21 Unknown Rx Metoprolol Xl [Metoprolol 25 mg PO QDAY #30 tablet 04/13/21 Unknown Rx SUCCINATE ER TAB] NIFEdipine XL [Procardia Xl] 60 mg PO Q12HR #60 tablet 04/13/21 Unknown Rx hydrALAZINE [Apresoline TAB] 50 mg PO Q8HR #180 tablet 04/13/21 Unknown Rx Active Medications: Generic Name Dose Route Start Last Admin Trade Name Freq PRN Reason Stop Dose Admin Acetaminophen 650 mg 05/04/21 12:34 05/11/21 11:24 Acetaminophen 325 Mg Tab PO 650 mg Q4H PRN Administration Pain MILD(1-3)/Fever >100.5/MARIA Acetaminophen 650 mg 05/07/21 16:00 05/11/21 16:25 Acetaminophen 650 Mg Rect Supp [place] 650 mg Q4H PRN Administration Pain, Mild (1-3) Aspirin 81 mg 05/06/21 14:00 05/12/21 09:18 Aspirin 81 Mg Tab Chew PO 81 mg QDAY RISHI Administration Atorvastatin Calcium 40 mg 05/09/21 22:00 05/12/21 22:35 Atorvastatin 40 Mg Tab FEEDTUBE 40 mg QHS RISHI Administration Chlordiazepoxide HCl 75 mg 05/11/21 15:00 05/13/21 09:19 Chlordiazepoxide 25 Mg Cap PO 75 mg Q8H RISHI Administration Dexamethasone 8 mg 05/08/21 12:00 05/12/21 09:18 Dexamethasone 4 Mg/Ml Vial IV 05/17/21 10:01 8 mg Q24HR RISHI Administration Dextrose 0 ml 05/09/21 10:49 Dextrose 10% *Hypoglycemia IV PRN PRN Hypoglycemia Famotidine 10 mg 05/12/21 10:00 05/12/21 22:31 Famotidine 10 Mg Tab FEEDTUBE 10 mg BID RISHI Administration Fentanyl 50 mcg 05/05/21 15:21 Fentanyl 100 Mcg/2 Ml Inj IV Q10MIN PRN ANALGESIA Haloperidol Lactate 5 mg 05/09/21 18:32 05/10/21 11:10 Haloperidol Lactate 5 Mg/1 Ml Inj IV 5 mg Q6H PRN Administration Agitation Heparin Sodium (Porcine) 3,000 unit 05/11/21 14:14 Heparin 10,000 Units/10 Ml Vial IV Q6H PRN Anti-Xa Assay < 0.1 units/ml Hydralazine HCl 50 mg 05/04/21 14:00 05/13/21 05:10 Hydralazine 25 Mg Tab PO Not Given Q8HR [facility] Hydralazine HCl 10 mg 05/07/21 16:16 05/09/21 17:35 Hydralazine 20 Mg/1 Ml Inj IV 10 mg Q2H PRN Administration Blood Pressure Hydrophilic Ointment 1 applic 05/05/21 15:21 Lip Therapy Vaseline TP Q2HR PRN Dry Lips Fentanyl Citrate 2,000 mcg in 100 mls @ 4.082 mls/hr 05/05/21 16:00 05/13/21 05:49 Fentanyl Drip Premix IV 1 mcg/kg/hr TITR RISHI 4.082 mls/hr Titration Protocol 1 MCG/KG/HR Propofol 1,000 mg in 100 mls @ 2.449 mls/hr 05/05/21 16:00 05/09/21 06:16 Diprivan 10 Mg/Ml IV 20 mcg/kg/min TITR RISHI 9.798 mls/hr Administration Protocol 5 MCG/KG/MIN Heparin Sodium/Sodium Chloride 25,000 unit in 500 mls @ 24 mls/hr 05/11/21 15:00 05/13/21 05:08 Heparin/ 0.45% Nacl-25,000 Unit/500 Ml IV 1,450 units/hr TITR RISHI 29 mls/hr Administration Protocol 1,200 UNITS/HR Ceftriaxone Sodium 2 gm in 100 mls @ 200 mls/hr 05/12/21 10:00 05/12/21 11:01 Rocephin/Ns 2 Gm/100 Ml IV 05/14/21 10:29 200 mls/hr Q24H RISHI Administration Protocol Insulin Human Lispro 0 unit 05/10/21 09:40 05/12/21 16:49 Insulin Lispro 100 Unit/Ml SUB-Q 2 unit Q6HR PRN Administration Hyperglycemia Protocol Metoprolol Tartrate 50 mg 05/10/21 14:00 05/13/21 09:23 Metoprolol Tartrate 50 Mg Tab FEEDTUBE Not Given TID RISHI Multi-Ingred Cream/Lotion/Oil/Oint 1 applic 05/05/21 15:21 Mineral Oil/Petrolatum, White Ophth Oint 3.5 Gm OU Q4HR PRN Dry Eye(s) Nitrofurantoin Macrocrystals 100 mg 05/13/21 10:00 Nitrofurantoin Monohyd/M-Cryst 100 Mg Cap PO 05/19/21 22:01 Q12HR [facility] Protocol Ondansetron HCl 4 mg 05/04/21 12:34 05/04/21 21:51 Ondansetron 4 Mg/2 Ml Inj IV 4 mg Q8H PRN Administration Nausea And Vomiting Quetiapine Fumarate 200 mg 05/09/21 22:00 05/12/21 22:31 Quetiapine 200 Mg Tab PO 200 mg BID RISHI Administration Senna/Docusate Sodium 1 tab 05/05/21 22:00 05/12/21 22:31 Sennosides/Docusate Sodium 8.6/50 Mg Tab FEEDTUBE 1 tab BID RISHI Administration Sodium Chloride 10 ml 05/04/21 22:00 05/12/21 22:32 Sodium Chloride 0.9% 10 Ml Flush Syringe IV 10 ml BID RISHI Administration Sodium Chloride 10 ml 05/04/21 12:34 05/06/21 13:59 Sodium Chloride 0.9% 10 Ml Flush Syringe IV 10 ml PRN PRN Administration LINE FLUSH Sodium Chloride 10 ml 05/09/21 09:46 Sodium Chloride 0.9% 50 Ml Ivpb IV PRN PRN FLUSH
[2021-05-13] MEDS ORDERED: NITROFURANTOIN MONOHYD/M-CRYST 100 MG CAP PO SCH (10:00)
[2021-05-13] MEDS: FAMOTIDINE 10 MG TAB FEEDTUBE SCH ×2 (10:14→22:08)
[2021-05-13] MEDS: SENNOSIDES/DOCUSATE SODIUM 8.6/50 MG TAB FEEDTUBE SCH ×2 (10:14→22:08)
[2021-05-13] MEDS: ASPIRIN 81 MG TAB CHEW PO SCH (10:14)
[2021-05-13] MEDS: cefTRIAXone/NS 2 GM/100 ML 2 GM/100 ML BAG IV SCH (10:15)
[2021-05-13] MEDS: QUEtiapine 200 MG TAB PO SCH ×2 (10:15→22:08)
[2021-05-13] MEDS: dexAMETHasone 4 MG/ML VIAL IV SCH (10:15)
--- NOTE | 2021-05-13 10:23 | Electrocardiograph Report ---
[facility] Test Date: 2021-05-12 Test Time: 09:49:40 Pat Name: LORENZA ZACARIAS Department: Room: A254 1 Gender: M Floor Nurse: TRENT : 1965 Requested By: VALENTIN SANCHEZ Order Number: [id number] Reading MD: Pilo Carpenter Measurements Intervals [place] Rate: 68 P: 21 TN: 146 QRS: -37 QRSD: 94 T: -46 QT: 405 QTc: 433 Interpretive Statements Sinus rhythm Probable left atrial enlargement Abnormal T, consider ischemia, diffuse leads Compared to ECG 05/04/2021 08:46:37 Left-axis deviation now present T-wave abnormality now present Ventricular premature complex(es) no longer present Early repolarization no longer present Possible ischemia still present Electronically Signed On 05-13-2021 10:22:56 EST by Pilo Carpenter
--- NOTE | 2021-05-13 11:05 | Progress Note ---
Assessment and Plan Patient is a 56-year-old male with a past medical history of hypertension, paroxysmal SVT, medical noncompliance, smoking, substance abuse who presented to the ED with a complaint of shortness of breath and dyspnea on exertion x1 month however with significantly worsening symptoms since yesterday. NSTEMI Hypertensive Emergency COVID-19 Acute Bilateral DVT Afib YE Hepatitis C SOB Medical noncompliance Polysubstance abuse-patient tested positive for methamphetamines Echo 05/04/2021-EF 35 to 40%. Moderate concentric LVH. Moderate global hypokinesis of left ventricle. Mild mitral regurgitation. Mild pulmonary hypertension. Echocardiogram reviewed (08/27/2020): LVEF is 50 to 55%. Mild to moderate concentric LVF. Severe diastolic dysfunction is present (restrictive filling). Right ventricle is mildly hypokinetic. RVSP is 48 mmHg. No valvular abnormali ties. Plan: Patient remains in sinus rhythm Continue statin therapy Continue medical management. Doppler study showed patient to have acute DVT. Patient currenlty on heparin gtt for anticoagulation Continue metoprolol 50 mg p.o. 3 times daily Will see as needed over weekend Patient seen in conjunction with Dr. Carpenter who agrees with this plan of care - Patient Problems (1) ARF (acute renal failure) Current Visit: Yes Status: Acute (2) Elevated d-dimer Current Visit: Yes Status: Acute (3) LFT elevation Current Visit: Yes Status: Acute (4) NSTEMI (non-ST elevated myocardial infarction) Current Visit: Yes Status: Acute (5) Polysubstance abuse Current Visit: Yes Status: Acute (6) SOB (shortness of breath) Current Visit: Yes Status: Acute (7) Hypertension Current Visit: Yes Status: Chronic (8) Noncompliance with medication regimen Current Visit: Yes Status: Chronic Subjective Date of service: 05/13/21 Principal diagnosis: AHRF; COVID-19 infection; NSTEMI; YE; HFrEF (35-40%); Polysubstance abuse Interval history: Patient remained intubated and sedated Patient sinus rhythm 60s on monitor with no event Objective Vital Signs Temp Pulse Pulse Resp BP Pulse Ox 05/13/21 08:21 61 12 114/80 100 05/13/21 08:11 60 11 L 114/80 100 05/13/21 08:00 98.3 F 59 L 61 13 114/80 100 05/13/21 07:56 59 L 12 110/76 100 05/13/21 07:51 61 15 110/76 99 05/13/21 07:46 59 L 110/76 100 05/13/21 07:41 59 L 20 110/76 100 05/13/21 07:30 59 L 20 110/76 100 05/13/21 07:21 59 L 20 109/76 100 05/13/21 07:11 59 L 20 109/76 100 05/13/21 07:00 58 L 20 109/76 100 05/13/21 06:51 59 L 20 104/74 100 05/13/21 06:41 58 L 20 104/74 100 05/13/21 06:30 57 L 20 104/74 100 05/13/21 06:21 57 L 20 104/72 100 05/13/21 06:11 56 L 20 104/72 99 05/13/21 06:00 56 L 20 104/72 100 05/13/21 05:51 57 L 20 104/74 99 05/13/21 05:41 57 L 20 104/74 99 05/13/21 05:30 57 L 20 104/74 98 05/13/21 05:21 57 L 20 109/76 99 05/13/21 05:11 57 L 20 109/76 97 05/13/21 05:10 57 L 109/76 05/13/21 05:00 58 L 20 109/76 96 05/13/21 04:51 57 L 20 105/73 97 05/13/21 04:41 58 L 20 105/73 98 05/13/21 04:30 58 L 20 105/73 98 05/13/21 04:21 57 L 20 105/74 99 05/13/21 04:13 57 L 104/73 100 05/13/21 04:10 58 L 14 104/73 98 05/13/21 04:00 59 L 69 20 104/73 98 05/13/21 03:50 58 L 20 108/77 99 05/13/21 03:40 58 L 20 108/77 99 05/13/21 03:35 99.8 F H 05/13/21 03:30 58 L 20 108/77 100 05/13/21 03:20 59 L 20 105/74 100 05/13/21 03:10 59 L 20 105/74 100 05/13/21 03:00 60 20 105/74 100 05/13/21 02:51 59 L 20 111/79 100 05/13/21 02:41 59 L 20 111/79 100 05/13/21 02:30 60 20 111/79 100 05/13/21 02:21 61 13 116/83 100 05/13/21 02:11 59 L 19 116/83 100 05/13/21 02:00 58 L 20 116/83 100 05/13/21 01:51 59 L 20 115/83 100 05/13/21 01:41 59 L 20 115/83 100 05/13/21 01:30 59 L 20 115/83 100 05/13/21 01:21 59 L 20 113/81 100 05/13/21 01:11 60 20 113/81 100 05/13/21 01:00 60 20 113/81 100 05/13/21 00:51 61 20 112/83 100 05/13/21 00:41 60 20 112/83 100 05/13/21 00:30 61 20 112/83 100 05/13/21 00:21 61 20 120/85 100 05/13/21 00:11 61 20 120/85 100 05/13/21 00:01 61 20 120/85 100 05/13/21 00:00 99.3 F 59 L 69 20 120/85 100 05/12/21 23:51 62 20 129/91 100 05/12/21 23:46 64 129/91 100 05/12/21 23:41 63 20 129/91 100 05/12/21 23:30 64 20 129/91 100 05/12/21 23:21 65 20 146/101 100 05/12/21 23:11 67 20 146/101 100 05/12/21 23:00 66 18 146/101 100 05/12/21 22:51 68 20 140/99 100 05/12/21 22:41 64 20 140/99 100 05/12/21 22:31 66 140/99 05/12/21 22:30 65 20 140/99 100 05/12/21 22:21 70 15 134/92 99 05/12/21 22:11 64 20 134/92 100 05/12/21 22:00 64 20 134/92 99 05/12/21 21:30 65 21 136/95 99 05/12/21 21:00 66 21 135/94 97 05/12/21 20:30 67 23 134/95 99 05/12/21 20:00 99.9 F H 69 69 22 139/98 96 05/12/21 19:30 68 23 133/94 100 05/12/21 19:21 68 128/96 100 05/12/21 19:01 73 18 128/96 100 05/12/21 18:30 70 24 131/95 99 05/12/21 18:00 71 29 H 144/101 100 05/12/21 17:30 136/95 98 05/12/21 17:01 74 26 H 131/94 90 05/12/21 16:30 72 26 H 130/93 05/12/21 16:00 99.4 F 74 74 23 131/93 96 05/12/21 15:30 71 22 129/87 99 05/12/21 15:29 75 25 H 129/87 99 05/12/21 15:00 75 25 H 127/91 98 05/12/21 14:30 72 26 H 134/94 05/12/21 14:00 71 23 128/91 99 05/12/21 13:30 71 20 126/89 05/12/21 13:01 73 120/85 05/12/21 13:00 71 21 120/85 05/12/21 12:30 69 20 119/84 05/12/21 12:00 70 70 18 119/84 97 05/12/21 11:30 67 17 110/79 05/12/21 11:27 100.5 F H 05/12/21 11:09 71 22 116/83 100 - Physical Examination General: Other (intubated and sedated) HEENT: Positive: PERRL Neck: Positive: trachea midline Cardiac: Positive: Reg Rate and Rhythm Lungs: Positive: Ventilated Respirations Neuro: Positive: Other (sedated) Abdomen: Positive: Soft Skin: Negative: Rash, Suspicious Lesions, Ulceration Extremities: Absent: edema - Labs and Meds Cardiac Enzymes 05/12/21 Range/Units 07:19 Lactate Dehydrogenase 314 H (91-180) units/L CBC 05/13/21 Range/Units 04:20 WBC 13.1 H (4.5-11.0) K/mm3 RBC 2.86 L (3.65-5.03) M/mm3 Hgb 8.5 L (11.8-15.2) gm/dl Hct 26.9 L (35.5-45.6) % Plt Count 220 (140-440) K/mm3 Comprehensive Metabolic Panel 05/13/21 Range/Units 04:20 Sodium 145 (137-145) mmol/L Potassium 4.1 (3.6-5.0) mmol/L Chloride 111.2 H (98-107) mmol/L Carbon Dioxide 23 (22-30) mmol/L BUN 53 H (9-20) mg/dL Creatinine 1.9 H (0.8-1.3) mg/dL Glucose 121 H (75-100) mg/dL Calcium 8.3 L (8.4-10.2) mg/dL - Imaging and Cardiology EKG: report reviewed, image reviewed Echo: report reviewed - Telemetry EKG Rhythm: Sinus Rhythm - EKG Sinus rhythms and dysrhythmias: sinus rhythm Ventricular dysrhythmias: ventricular premature com Chamber hypertrophy or enlargement: left ventricular hypertro - Allied health notes Allied health notes reviewed: nursing
[2021-05-13 11:50] LABS: ABG Base Excess 1.2 mmol/L (-2.0-3.0); ABG HCO3 25.2 mmol/L (20.0-26.0); ABG Methemoglobin 0.5 % (0.0-1.5); ABG PCO2 36.5 mm Hg; ABG PH 7.456 pH Units (7.350-7.450)
--- NOTE | 2021-05-13 13:46 | Progress Note ---
Assessment and Plan Acute hypoxic resp failure on MVS COVID positive NSTEMI Acute kidney injury Cardiomyopathy EF 35-40% History of hepatitis C DVT Elevated D-dimer Tobacco abuse Polysubstance abusepatient with positive methamphetamines and has a history of cocaine use Anemia - extubate - started on Zosyn for enterococcus; de-escalate per ID recommendations - continue Scheduled Librium to spare IV sedation (begin taper in am) - continue IV Heparin re: DVT - continue to adjust anxiolytics / CIWA protocol - continue care as below otherwise; - Daily SAT and SBT assessment as tolerated - continue to wean supplemental oxygen for target O2 sat's > 90% acutely - VAP bundle addressed - continue lung protective strategies - continue bronchodilators with pulmonary hygiene per RT - wean per pulmonary driven protocols otherwise - avoid nephrotoxins, renally dose all medications - AB's per ID recommendations - continue accuchecks with glycemic control per SSI (While critically ill target blood glucose of 140-180 mg/dL; avoid hypoglycemia) - sedation prn for target RASS 0 to -1 - continue to avoid benzodiazepine's, reduce the possibility of delirium - prn analgesia per CPOT score - Maintenance of sleep-wake cycle, avoid delirium - continue enteral nutritional support at goal rate as tolerated - G.I. & VTE prophylaxis - PT/OT/ROM exercises - continue mobility protocols for pressure ulcer prophylaxis - Monitor hemodynamics closely - continue other care per attending / other consultants - discharge planning ongoing concurrently COVID SPECIFIC INTERVENTIONS - Appears to have incidental COVID infection- Remdesivir not administered secondary to renal failure - continue systemic steroids for severe COVID-19 infection empirically (Dexamethasone) - follow repeat COVID tests results - zinc and vitamin C supplementation - Monitor inflammatory markers per facility protocol - ferritin, Ddimer, CRP - therapeutic anticoagulation per system Protocol based on d-dimer and clinical considerations (on therapeutic heparin for NSTEMI) - Continue contact and airborne isolation .... Re-evaluate in am & prn CONDITION: CRITICAL PROGNOSIS: GUARDED CODE STATUS: FULL CODE The high probability of a clinically significant, sudden or life-threatening deterioration of the [respiratory, cardiovascular & neurologic] system(s) required my full and direct attention, intervention and personal management. The aggregate critical care time was [36] minutes without overlap. Time includes spent on; [x] Data Review and interpretation [x] Patient assessment and monitoring of vital signs [x] Documentation [x] Medication orders and management Subjective Date of service: 05/13/21 Principal diagnosis: AHRF; COVID-19 infection; NSTEMI; YE; HFrEF (35-40%); Polysubstance abuse Interval history: Patient is seen today for: Acute hypoxemic Resp failure; COVID-19 infection; NSTEMI; YE; HFrEF (35-40%); Polysubstance abuse; Anemia Seen and examined at bedside; 24hour events reviewed; nursing and respiratory care staff consulted; no adverse overnight events reported to me; resting in bed; remains on MVS but passed SBT ; less agitated today also; no emesis or overt aspiration Objective Vital Signs - 12hr 05/13/21 05/13/21 05/13/21 01:51 02:00 02:11 Temperature Pulse Rate 59 L 58 L 59 L Pulse Rate [ From Monitor] Respiratory 20 20 19 Rate Blood Pressure 115/83 116/83 116/83 O2 Sat by Pulse 100 100 100 Oximetry 05/13/21 05/13/21 05/13/21 02:21 02:30 02:41 Temperature Pulse Rate 61 60 59 L Pulse Rate [ From Monitor] Respiratory 13 20 20 Rate Blood Pressure 116/83 111/79 111/79 O2 Sat by Pulse 100 100 100 Oximetry 05/13/21 05/13/21 05/13/21 02:51 03:00 03:10 Temperature Pulse Rate 59 L 60 59 L Pulse Rate [ From Monitor] Respiratory 20 20 20 Rate Blood Pressure 111/79 105/74 105/74 O2 Sat by Pulse 100 100 100 Oximetry 05/13/21 05/13/21 05/13/21 03:20 03:30 03:35 Temperature 99.8 F H Pulse Rate 59 L 58 L Pulse Rate [ From Monitor] Respiratory 20 20 Rate Blood Pressure 105/74 108/77 O2 Sat by Pulse 100 100 Oximetry 05/13/21 05/13/21 05/13/21 03:40 03:50 04:00 Temperature Pulse Rate 58 L 58 L 59 L Pulse Rate [ 69 From Monitor] Respiratory 20 20 20 Rate Blood Pressure 108/77 108/77 104/73 O2 Sat by Pulse 99 99 98 Oximetry 05/13/21 05/13/21 05/13/21 04:10 04:13 04:21 Temperature Pulse Rate 58 L 57 L 57 L Pulse Rate [ From Monitor] Respiratory 14 20 Rate Blood Pressure 104/73 104/73 105/74 O2 Sat by Pulse 98 100 99 Oximetry 05/13/21 05/13/21 05/13/21 04:30 04:41 04:51 Temperature Pulse Rate 58 L 58 L 57 L Pulse Rate [ From Monitor] Respiratory 20 20 20 Rate Blood Pressure 105/73 105/73 105/73 O2 Sat by Pulse 98 98 97 Oximetry 05/13/21 05/13/21 05/13/21 05:00 05:10 05:11 Temperature Pulse Rate 58 L 57 L 57 L Pulse Rate [ From Monitor] Respiratory 20 20 Rate Blood Pressure 109/76 109/76 109/76 O2 Sat by Pulse 96 97 Oximetry 05/13/21 05/13/21 05/13/21 05:21 05:30 05:41 Temperature Pulse Rate 57 L 57 L 57 L Pulse Rate [ From Monitor] Respiratory 20 20 20 Rate Blood Pressure 109/76 104/74 104/74 O2 Sat by Pulse 99 98 99 Oximetry 05/13/21 05/13/21 05/13/21 05:51 06:00 06:11 Temperature Pulse Rate 57 L 56 L 56 L Pulse Rate [ From Monitor] Respiratory 20 20 20 Rate Blood Pressure 104/74 104/72 104/72 O2 Sat by Pulse 99 100 99 Oximetry 05/13/21 05/13/21 05/13/21 06:21 06:30 06:41 Temperature Pulse Rate 57 L 57 L 58 L Pulse Rate [ From Monitor] Respiratory 20 20 20 Rate Blood Pressure 104/72 104/74 104/74 O2 Sat by Pulse 100 100 100 Oximetry 05/13/21 05/13/21 05/13/21 06:51 07:00 07:11 Temperature Pulse Rate 59 L 58 L 59 L Pulse Rate [ From Monitor] Respiratory 20 20 20 Rate Blood Pressure 104/74 109/76 109/76 O2 Sat by Pulse 100 100 100 Oximetry 05/13/21 05/13/21 05/13/21 07:21 07:30 07:41 Temperature Pulse Rate 59 L 59 L 59 L Pulse Rate [ From Monitor] Respiratory 20 20 20 Rate Blood Pressure 109/76 110/76 110/76 O2 Sat by Pulse 100 100 100 Oximetry 05/13/21 05/13/21 05/13/21 07:46 07:51 07:56 Temperature Pulse Rate 59 L 61 59 L Pulse Rate [ From Monitor] Respiratory 15 12 Rate Blood Pressure 110/76 110/76 110/76 O2 Sat by Pulse 100 99 100 Oximetry 05/13/21 05/13/21 05/13/21 08:00 08:11 08:21 Temperature 98.3 F Pulse Rate 59 L 60 61 Pulse Rate [ 61 From Monitor] Respiratory 13 11 L 12 Rate Blood Pressure 114/80 114/80 114/80 O2 Sat by Pulse 100 100 100 Oximetry 05/13/21 05/13/21 05/13/21 08:30 08:41 08:51 Temperature Pulse Rate 61 61 61 Pulse Rate [ From Monitor] Respiratory 13 13 12 Rate Blood Pressure 117/82 117/82 117/82 O2 Sat by Pulse 100 100 100 Oximetry 05/13/21 05/13/21 05/13/21 09:00 09:11 09:21 Temperature Pulse Rate 63 64 62 Pulse Rate [ From Monitor] Respiratory 12 14 12 Rate Blood Pressure 116/81 116/81 116/81 O2 Sat by Pulse 100 100 100 Oximetry 05/13/21 05/13/21 05/13/21 09:30 09:41 09:51 Temperature Pulse Rate 60 61 62 Pulse Rate [ From Monitor] Respiratory 14 15 16 Rate Blood Pressure 113/79 113/79 113/79 O2 Sat by Pulse 100 100 100 Oximetry 05/13/21 05/13/21 05/13/21 10:00 10:11 10:21 Temperature Pulse Rate 61 62 61 Pulse Rate [ From Monitor] Respiratory 14 16 11 L Rate Blood Pressure 115/80 115/80 115/80 O2 Sat by Pulse 100 100 100 Oximetry 05/13/21 05/13/21 05/13/21 10:30 10:41 10:51 Temperature Pulse Rate 61 62 62 Pulse Rate [ From Monitor] Respiratory 17 15 16 Rate Blood Pressure 116/80 116/80 116/80 O2 Sat by Pulse 100 100 100 Oximetry 05/13/21 05/13/21 05/13/21 11:00 11:11 11:21 Temperature Pulse Rate 61 62 62 Pulse Rate [ From Monitor] Respiratory 15 12 13 Rate Blood Pressure 117/81 117/81 117/81 O2 Sat by Pulse 100 100 100 Oximetry 05/13/21 05/13/21 05/13/21 11:30 11:41 11:51 Temperature Pulse Rate 63 62 63 Pulse Rate [ From Monitor] Respiratory 16 17 15 Rate Blood Pressure 121/86 121/86 121/86 O2 Sat by Pulse 100 100 100 Oximetry 05/13/21 05/13/21 05/13/21 12:00 12:11 12:21 Temperature 98.4 F Pulse Rate 69 64 68 Pulse Rate [ 64 From Monitor] Respiratory 20 18 14 Rate Blood Pressure 116/80 116/80 116/80 O2 Sat by Pulse 99 99 98 Oximetry 05/13/21 05/13/21 05/13/21 12:30 12:41 12:47 Temperature Pulse Rate 65 74 Pulse Rate [ From Monitor] Respiratory 17 22 Rate Blood Pressure 118/83 118/83 O2 Sat by Pulse 99 99 100 Oximetry 05/13/21 05/13/21 12:50 12:51 Temperature Pulse Rate 70 Pulse Rate [ From Monitor] Respiratory 20 Rate Blood Pressure 118/83 O2 Sat by Pulse 98 99 Oximetry Constitutional: no acute distress (sedate), other (orally intuabted, sedated; normal respiratory effort at rest) Eyes: non-icteric ENT: oropharynx moist Neck: supple, no lymphadenopathy, no JVD Effort: normal Ascultation: Bilateral: clear, diminished breath sounds Percussion: Bilateral: not dull Cardiovascular: irregular rhythm, other (S1,S2) Gastrointestinal: normoactive bowel sounds, soft, non-tender, non-distended Integumentary: normal Extremities: no cyanosis, no edema, pulses normal, no ischemia or petechiae Neurologic: non-focal exam, pupils equal and round, CN II-XII normal, motor strength normal and Psychiatric: other (sedated) CBC and BMP: 05/13/21 04:20 05/13/21 04:20 ABG, PT/INR, D-dimer: ABG ABG pH 7.456 pH Units (7.350-7.450) H 05/13/21 11:15 ABG pCO2 36.5 mm Hg 05/13/21 11:15 ABG pO2 106.0 mm Hg (80.0-90.0) H 05/13/21 11:15 ABG O2 Saturation 98.0 % (95.0-99.0) 05/13/21 11:15 PT/INR, D-dimer PT 15.6 Sec. (12.2-14.9) H 05/11/21 14:43 INR 1.12 (0.87-1.13) 05/11/21 14:43 D-Dimer 2730.61 ng/mlDDU (0-234) H 05/12/21 07:19 Abnormal lab findings: Abnormal Labs 05/04/21 05/04/21 05/04/21 07:25 07:25 07:25 WBC 12.9 H RBC 3.04 L Hgb 9.5 L Hct 28.4 L MCV RDW 15.4 H Lymph % (Auto) 11.4 L [place] % (Auto) 10.1 H Lymph # (Auto) [place] # (Auto) 1.3 H Seg Neutrophils % 78.0 H Seg Neutrophils # 10.0 H PT 15.1 H D-Dimer Heparin Anti-Xa Level ABG pH ABG pO2 ABG Base Excess ABG Hemoglobin Sodium 135 L Potassium Chloride Carbon Dioxide BUN 65 H Creatinine 3.4 H Glucose 118 H POC Glucose Calcium Ferritin Total Bilirubin 1.50 H AST 519 H ALT 475 H Lactate Dehydrogenase Total Creatine Kinase Troponin T 1.300 H* C-Reactive Protein Albumin Urine WBC (Auto) Urine Creatinine Urine Total Protein Complement C3 Coronavirus (PCR) Hepatitis C Antibody 05/04/21 05/04/21 05/04/21 07:25 08:42 08:42 WBC RBC Hgb Hct MCV RDW Lymph % (Auto) [place] % (Auto) Lymph # (Auto) [place] # (Auto) Seg Neutrophils % Seg Neutrophils # PT D-Dimer 579.49 H Heparin Anti-Xa Level ABG pH ABG pO2 ABG Base Excess ABG Hemoglobin Sodium Potassium Chloride Carbon Dioxide BUN Creatinine Glucose POC Glucose Calcium Ferritin Total Bilirubin AST ALT Lactate Dehydrogenase Total Creatine Kinase 406 H Troponin T 1.230 H* C-Reactive Protein Albumin Urine WBC (Auto) Urine Creatinine Urine Total Protein Complement C3 Coronavirus (PCR) Hepatitis C Antibody 05/04/21 05/04/21 05/04/21 10:13 13:34 18:14 WBC RBC Hgb 8.8 L Hct 26.6 L MCV RDW Lymph % (Auto) [place] % (Auto) Lymph # (Auto) [place] # (Auto) Seg Neutrophils % Seg Neutrophils # PT D-Dimer Heparin Anti-Xa Level < 0.10 L ABG pH ABG pO2 ABG Base Excess ABG Hemoglobin Sodium Potassium Chloride Carbon Dioxide BUN Creatinine Glucose POC Glucose Calcium Ferritin Total Bilirubin AST ALT Lactate Dehydrogenase Total Creatine Kinase Troponin T 1.400 H* C-Reactive Protein Albumin Urine WBC (Auto) Urine Creatinine Urine Total Protein Complement C3 Coronavirus (PCR) Hepatitis C Antibody 05/05/21 05/05/21 05/05/21 03:40 03:40 03:40 WBC RBC Hgb Hct MCV RDW Lymph % (Auto) [place] % (Auto) Lymph # (Auto) [place] # (Auto) Seg Neutrophils % Seg Neutrophils # PT D-Dimer Heparin Anti-Xa Level 0.11 L ABG pH ABG pO2 ABG Base Excess ABG Hemoglobin Sodium Potassium 3.3 L Chloride Carbon Dioxide BUN 59 H Creatinine 2.6 H Glucose 139 H POC Glucose Calcium Ferritin Total Bilirubin AST ALT Lactate Dehydrogenase Total Creatine Kinase Troponin T C-Reactive Protein Albumin Urine WBC (Auto) Urine Creatinine Urine Total Protein Complement C3 Coronavirus (PCR) Hepatitis C Antibody Reactive A 05/05/21 05/05/21 05/05/21 03:40 08:30 09:57 WBC RBC Hgb Hct MCV RDW Lymph % (Auto) [place] % (Auto) Lymph # (Auto) [place] # (Auto) Seg Neutrophils % Seg Neutrophils # PT D-Dimer Heparin Anti-Xa Level ABG pH ABG pO2 ABG Base Excess ABG Hemoglobin Sodium Potassium Chloride Carbon Dioxide BUN Creatinine Glucose POC Glucose Calcium Ferritin Total Bilirubin AST ALT Lactate Dehydrogenase Total Creatine Kinase Troponin T C-Reactive Protein Albumin Urine WBC (Auto) Urine Creatinine 100.8 H Urine Total Protein Complement C3 72 L Coronavirus (PCR) Positive A Hepatitis C Antibody 05/05/21 05/05/21 05/05/21 11:28 17:00 19:51 WBC RBC Hgb Hct MCV RDW Lymph % (Auto) [place] % (Auto) Lymph # (Auto) [place] # (Auto) Seg Neutrophils % Seg Neutrophils # PT D-Dimer Heparin Anti-Xa Level 0.10 L 0.22 L ABG pH 7.304 L ABG pO2 140.8 H ABG Base Excess -2.1 L ABG Hemoglobin 10.2 L Sodium Potassium Chloride Carbon Dioxide BUN Creatinine Glucose POC Glucose Calcium Ferritin Total Bilirubin AST ALT Lactate Dehydrogenase Total Creatine Kinase Troponin T C-Reactive Protein Albumin Urine WBC (Auto) Urine Creatinine Urine Total Protein Complement C3 Coronavirus (PCR) Hepatitis C Antibody 05/06/21 05/06/21 05/06/21 03:47 06:15 17:53 WBC RBC Hgb 9.0 L Hct 27.8 L MCV RDW Lymph % (Auto) [place] % (Auto) Lymph # (Auto) [place] # (Auto) Seg Neutrophils % Seg Neutrophils # PT D-Dimer Heparin Anti-Xa Level 0.10 L ABG pH ABG pO2 143.5 H ABG Base Excess -2.4 L ABG Hemoglobin 6.9 L Sodium Potassium Chloride Carbon Dioxide BUN Creatinine Glucose POC Glucose Calcium Ferritin Total Bilirubin AST ALT Lactate Dehydrogenase Total Creatine Kinase Troponin T C-Reactive Protein Albumin Urine WBC (Auto) Urine Creatinine Urine Total Protein Complement C3 Coronavirus (PCR) Hepatitis C Antibody 05/07/21 05/07/21 05/07/21 00:07 03:22 03:45 WBC RBC Hgb Hct MCV RDW Lymph % (Auto) [place] % (Auto) Lymph # (Auto) [place] # (Auto) Seg Neutrophils % Seg Neutrophils # PT D-Dimer Heparin Anti-Xa Level < 0.10 L ABG pH ABG pO2 104.3 H ABG Base Excess -2.6 L ABG Hemoglobin 9.1 L Sodium Potassium Chloride 107.1 H Carbon Dioxide 20 L BUN 56 H Creatinine 2.9 H Glucose POC Glucose Calcium Ferritin Total Bilirubin AST ALT Lactate Dehydrogenase Total Creatine Kinase Troponin T C-Reactive Protein Albumin Urine WBC (Auto) Urine Creatinine Urine Total Protein Complement C3 Coronavirus (PCR) Hepatitis C Antibody 05/07/21 05/07/21 05/07/21 07:44 16:28 22:41 WBC RBC Hgb Hct MCV RDW Lymph % (Auto) [place] % (Auto) Lymph # (Auto) [place] # (Auto) Seg Neutrophils % Seg Neutrophils # PT D-Dimer Heparin Anti-Xa Level < 0.10 L 0.10 L < 0.10 L ABG pH ABG pO2 ABG Base Excess ABG Hemoglobin Sodium Potassium Chloride Carbon Dioxide BUN Creatinine Glucose POC Glucose Calcium Ferritin Total Bilirubin AST ALT Lactate Dehydrogenase Total Creatine Kinase Troponin T C-Reactive Protein Albumin Urine WBC (Auto) Urine Creatinine Urine Total Protein Complement C3 Coronavirus (PCR) Hepatitis C Antibody 05/08/21 05/08/21 05/08/21 03:25 04:34 07:30 WBC 12.4 H RBC 3.02 L Hgb 9.5 L Hct 29.2 L MCV 97 H RDW 16.7 H Lymph % (Auto) 8.1 L [place] % (Auto) 11.0 H Lymph # (Auto) 1.0 L [place] # (Auto) 1.4 H Seg Neutrophils % 80.1 H Seg Neutrophils # 9.9 H PT D-Dimer Heparin Anti-Xa Level ABG pH ABG pO2 139.0 H ABG Base Excess ABG Hemoglobin 8.8 L Sodium Potassium Chloride 110.5 H Carbon Dioxide BUN 59 H Creatinine 2.8 H Glucose 103 H POC Glucose Calcium Ferritin Total Bilirubin AST ALT 327 H Lactate Dehydrogenase Total Creatine Kinase Troponin T C-Reactive Protein Albumin 3.1 L Urine WBC (Auto) Urine Creatinine Urine Total Protein Complement C3 Coronavirus (PCR) Hepatitis C Antibody 05/09/21 05/09/21 05/09/21 04:10 04:20 04:20 WBC 11.7 H RBC 2.79 L Hgb 8.7 L Hct 26.5 L MCV 95 H RDW 16.2 H Lymph % (Auto) [place] % (Auto) Lymph # (Auto) [place] # (Auto) Seg Neutrophils % Seg Neutrophils # PT D-Dimer Heparin Anti-Xa Level ABG pH ABG pO2 161.6 H ABG Base Excess ABG Hemoglobin 8.3 L Sodium 151 H Potassium Chloride 114.5 H Carbon Dioxide 21 L BUN 57 H Creatinine 2.4 H Glucose POC Glucose Calcium Ferritin Total Bilirubin AST ALT 210 H Lactate Dehydrogenase Total Creatine Kinase Troponin T C-Reactive Protein Albumin 2.9 L Urine WBC (Auto) Urine Creatinine Urine Total Protein Complement C3 Coronavirus (PCR) Hepatitis C Antibody 05/09/21 05/09/21 05/09/21 09:48 09:48 13:22 WBC 11.6 H RBC 3.00 L Hgb 9.0 L Hct 28.4 L MCV RDW 15.9 H Lymph % (Auto) 5.9 L [place] % (Auto) 8.9 H Lymph # (Auto) 0.7 L [place] # (Auto) 1.0 H Seg Neutrophils % 84.3 H Seg Neutrophils # 9.8 H PT D-Dimer Heparin Anti-Xa Level ABG pH ABG pO2 ABG Base Excess ABG Hemoglobin Sodium Potassium Chloride Carbon Dioxide BUN Creatinine Glucose POC Glucose Calcium Ferritin Total Bilirubin AST ALT Lactate Dehydrogenase Total Creatine Kinase Troponin T C-Reactive Protein 8.70 H Albumin Urine WBC (Auto) 25.0 H Urine Creatinine Urine Total Protein Complement C3 Coronavirus (PCR) Hepatitis C Antibody 05/09/21 05/09/21 05/10/21 15:20 18:16 04:57 WBC RBC 2.87 L Hgb 8.8 L Hct 27.0 L MCV RDW 15.9 H Lymph % (Auto) [place] % (Auto) Lymph # (Auto) [place] # (Auto) Seg Neutrophils % Seg Neutrophils # PT D-Dimer Heparin Anti-Xa Level ABG pH ABG pO2 102.0 H ABG Base Excess -2.8 L ABG Hemoglobin 9.0 L Sodium Potassium Chloride Carbon Dioxide BUN Creatinine Glucose POC Glucose 130 H Calcium Ferritin Total Bilirubin AST ALT Lactate Dehydrogenase Total Creatine Kinase Troponin T C-Reactive Protein Albumin Urine WBC (Auto) Urine Creatinine Urine Total Protein Complement C3 Coronavirus (PCR) Hepatitis C Antibody 05/10/21 05/10/21 05/10/21 04:57 04:57 04:57 WBC RBC Hgb Hct MCV RDW Lymph % (Auto) [place] % (Auto) Lymph # (Auto) [place] # (Auto) Seg Neutrophils % Seg Neutrophils # PT D-Dimer 1546.78 H Heparin Anti-Xa Level ABG pH ABG pO2 ABG Base Excess ABG Hemoglobin Sodium 148 H Potassium Chloride 114.9 H Carbon Dioxide 21 L BUN 57 H Creatinine 2.3 H Glucose 157 H POC Glucose Calcium Ferritin 888.2 H Total Bilirubin AST ALT Lactate Dehydrogenase 289 H Total Creatine Kinase Troponin T C-Reactive Protein 6.80 H Albumin Urine WBC (Auto) Urine Creatinine Urine Total Protein Complement C3 Coronavirus (PCR) Hepatitis C Antibody 05/10/21 05/10/21 05/10/21 05:09 08:04 11:03 WBC RBC Hgb Hct MCV RDW Lymph % (Auto) [place] % (Auto) Lymph # (Auto) [place] # (Auto) Seg Neutrophils % Seg Neutrophils # PT D-Dimer Heparin Anti-Xa Level ABG pH 7.473 H ABG pO2 114.6 H ABG Base Excess ABG Hemoglobin 9.5 L Sodium Potassium Chloride Carbon Dioxide BUN Creatinine Glucose POC Glucose 152 H Calcium Ferritin Total Bilirubin AST ALT Lactate Dehydrogenase Total Creatine Kinase Troponin T C-Reactive Protein Albumin Urine WBC (Auto) Urine Creatinine 100.8 H Urine Total Protein 42 H Complement C3 Coronavirus (PCR) Hepatitis C Antibody 05/10/21 05/10/21 05/10/21 13:07 18:01 23:31 WBC RBC Hgb Hct MCV RDW Lymph % (Auto) [place] % (Auto) Lymph # (Auto) [place] # (Auto) Seg Neutrophils % Seg Neutrophils # PT D-Dimer Heparin Anti-Xa Level ABG pH ABG pO2 ABG Base Excess ABG Hemoglobin Sodium Potassium Chloride Carbon Dioxide BUN Creatinine Glucose POC Glucose 150 H 189 H 142 H Calcium Ferritin Total Bilirubin AST ALT Lactate Dehydrogenase Total Creatine Kinase Troponin T C-Reactive Protein Albumin Urine WBC (Auto) Urine Creatinine Urine Total Protein Complement C3 Coronavirus (PCR) Hepatitis C Antibody 05/10/21 05/11/21 05/11/21 Unknown 05:25 06:53 WBC RBC Hgb Hct MCV RDW Lymph % (Auto) [place] % (Auto) Lymph # (Auto) [place] # (Auto) Seg Neutrophils % Seg Neutrophils # PT D-Dimer Heparin Anti-Xa Level ABG pH ABG pO2 126.6 H ABG Base Excess ABG Hemoglobin 9.2 L Sodium 150 H Potassium Chloride 116.6 H Carbon Dioxide 21 L BUN 62 H Creatinine 2.5 H Glucose 142 H POC Glucose 163 H Calcium Ferritin Total Bilirubin AST ALT Lactate Dehydrogenase Total Creatine Kinase Troponin T C-Reactive Protein Albumin Urine WBC (Auto) Urine Creatinine Urine Total Protein Complement C3 Coronavirus (PCR) Hepatitis C Antibody 05/11/21 05/11/21 05/11/21 06:53 11:06 13:51 WBC RBC 3.07 L Hgb 9.3 L Hct 29.0 L MCV 95 H RDW 16.1 H Lymph % (Auto) [place] % (Auto) Lymph # (Auto) [place] # (Auto) Seg Neutrophils % Seg Neutrophils # PT D-Dimer Heparin Anti-Xa Level ABG pH ABG pO2 74.9 L ABG Base Excess -3.3 L ABG Hemoglobin 10.8 L Sodium Potassium Chloride Carbon Dioxide BUN Creatinine Glucose POC Glucose 145 H Calcium Ferritin Total Bilirubin AST ALT Lactate Dehydrogenase Total Creatine Kinase Troponin T C-Reactive Protein Albumin Urine WBC (Auto) Urine Creatinine Urine Total Protein Complement C3 Coronavirus (PCR) Hepatitis C Antibody 05/11/21 05/11/21 05/11/21 14:43 14:43 15:47 WBC RBC Hgb 9.2 L Hct 29.7 L MCV RDW Lymph % (Auto) [place] % (Auto) Lymph # (Auto) [place] # (Auto) Seg Neutrophils % Seg Neutrophils # PT 15.6 H D-Dimer Heparin Anti-Xa Level ABG pH ABG pO2 ABG Base Excess ABG Hemoglobin Sodium Potassium Chloride Carbon Dioxide BUN Creatinine Glucose POC Glucose 137 H Calcium Ferritin Total Bilirubin AST ALT Lactate Dehydrogenase Total Creatine Kinase Troponin T C-Reactive Protein Albumin Urine WBC (Auto) Urine Creatinine Urine Total Protein Complement C3 Coronavirus (PCR) Hepatitis C Antibody 05/12/21 05/12/21 05/12/21 00:04 05:07 07:19 WBC 11.9 H RBC 3.00 L Hgb 9.1 L Hct 28.9 L MCV 96 H RDW 16.7 H Lymph % (Auto) 11.5 L [place] % (Auto) 8.2 H Lymph # (Auto) [place] # (Auto) 1.0 H Seg Neutrophils % 80.0 H Seg Neutrophils # 9.6 H PT D-Dimer Heparin Anti-Xa Level ABG pH ABG pO2 ABG Base Excess ABG Hemoglobin Sodium Potassium Chloride Carbon Dioxide BUN Creatinine Glucose POC Glucose 121 H 117 H Calcium Ferritin Total Bilirubin AST ALT Lactate Dehydrogenase Total Creatine Kinase Troponin T C-Reactive Protein Albumin Urine WBC (Auto) Urine Creatinine Urine Total Protein Complement C3 Coronavirus (PCR) Hepatitis C Antibody 05/12/21 05/12/21 05/12/21 07:19 07:19 07:19 WBC RBC Hgb Hct MCV RDW Lymph % (Auto) [place] % (Auto) Lymph # (Auto) [place] # (Auto) Seg Neutrophils % Seg Neutrophils # PT D-Dimer 2730.61 H Heparin Anti-Xa Level ABG pH ABG pO2 ABG Base Excess ABG Hemoglobin Sodium 146 H Potassium 5.1 H Chloride 112.4 H Carbon Dioxide 21 L BUN 61 H Creatinine 2.2 H Glucose 136 H POC Glucose Calcium 8.1 L Ferritin 640.2 H Total Bilirubin AST ALT Lactate Dehydrogenase 314 H Total Creatine Kinase Troponin T C-Reactive Protein 1.60 H Albumin Urine WBC (Auto) Urine Creatinine Urine Total Protein Complement C3 Coronavirus (PCR) Hepatitis C Antibody 05/12/21 05/12/21 05/12/21 11:10 16:10 16:38 WBC RBC Hgb Hct MCV RDW Lymph % (Auto) [place] % (Auto) Lymph # (Auto) [place] # (Auto) Seg Neutrophils % Seg Neutrophils # PT D-Dimer Heparin Anti-Xa Level 0.20 L ABG pH ABG pO2 ABG Base Excess ABG Hemoglobin Sodium Potassium Chloride Carbon Dioxide BUN Creatinine Glucose POC Glucose 131 H 157 H Calcium Ferritin Total Bilirubin AST ALT Lactate Dehydrogenase Total Creatine Kinase Troponin T C-Reactive Protein Albumin Urine WBC (Auto) Urine Creatinine Urine Total Protein Complement C3 Coronavirus (PCR) Hepatitis C Antibody 05/12/21 05/13/21 05/13/21 23:30 00:12 04:20 WBC RBC Hgb Hct MCV RDW Lymph % (Auto) [place] % (Auto) Lymph # (Auto) [place] # (Auto) Seg Neutrophils % Seg Neutrophils # PT D-Dimer Heparin Anti-Xa Level 0.13 L ABG pH ABG pO2 ABG Base Excess ABG Hemoglobin Sodium Potassium Chloride 111.2 H Carbon Dioxide BUN 53 H Creatinine 1.9 H Glucose 121 H POC Glucose 115 H Calcium 8.3 L Ferritin Total Bilirubin AST ALT Lactate Dehydrogenase Total Creatine Kinase Troponin T C-Reactive Protein Albumin Urine WBC (Auto) Urine Creatinine Urine Total Protein Complement C3 Coronavirus (PCR) Hepatitis C Antibody 05/13/21 05/13/21 05/13/21 04:20 11:15 11:29 WBC 13.1 H RBC 2.86 L Hgb 8.5 L Hct 26.9 L MCV RDW 15.7 H Lymph % (Auto) [place] % (Auto) Lymph # (Auto) [place] # (Auto) Seg Neutrophils % Seg Neutrophils # PT D-Dimer Heparin Anti-Xa Level ABG pH 7.456 H ABG pO2 106.0 H ABG Base Excess ABG Hemoglobin 7.1 L Sodium Potassium Chloride Carbon Dioxide BUN Creatinine Glucose POC Glucose 121 H Calcium Ferritin Total Bilirubin AST ALT Lactate Dehydrogenase Total Creatine Kinase Troponin T C-Reactive Protein Albumin Urine WBC (Auto) Urine Creatinine Urine Total Protein Complement C3 Coronavirus (PCR) Hepatitis C Antibody Allied health notes reviewed: nursing
--- NOTE | 2021-05-13 13:52 | Progress Note ---
Assessment and Plan Cultures: Blood culture 05/07/2021 no growth so far Blood culture 05/10/2021 no growth so far A/P: 56 yo M PMHx smoking, a fin, HTN, medication non-compliance #Severe COVID-19 pneumonia: Patient presented with a week of symptoms, chest x-r ay with diffuse bilateral infiltrates, admission O2 sats decreased on room air. Inflammatory markers elevated #Acute hypoxemic respiratory failure: Likely secondary to COVID-19 infection. Currently on the vent #YE: Renally dose medications Recommendations: -Dexamethasone 6 mg IV/PO daily for 10 days -Not a candidate for remdesivir -Obtain q48-72h inflammatory markers - ferritin, Ddimer, CRP, LDH -Changed to Zosyn, complete 5 days -Anticoagulation per hospital protocol -Proning as able Thank you for the consult, we will continue to follow. Roque Bacon MD [facility] O: [phone] F: [phone] Subjective Date of service: 05/13/21 Principal diagnosis: AHRF; COVID-19 infection; NSTEMI; YE; HFrEF (35-40%); Polysubstance abuse Interval history: Afebrile overnight, white count 13.1. Objective - Exam Narrative Exam: Physical exam deferred to reduce risk of transmission of COVID-19. Please refer to primary team's note. - Constitutional Vitals: Vital Signs Temp Pulse Resp BP Pulse Ox 98.4 F 70 20 118/83 99 05/13/21 12:00 05/13/21 12:51 05/13/21 12:51 05/13/21 12:51 05/13/21 12:51 Temperature -Last 24 Hours Temperature 98.4 F Temperature 98.3 F Temperature 99.8 F Temperature 99.3 F Temperature 99.9 F Temperature 99.4 F - Labs CBC & Chem 7: 05/13/21 04:20 05/13/21 04:20 Labs: Abnormal lab results 05/12/21 05/12/21 05/12/21 Range/Units 16:10 16:38 23:30 WBC (4.5-11.0) K/mm3 RBC (3.65-5.03) M/mm3 Hgb (11.8-15.2) gm/dl Hct (35.5-45.6) % RDW (13.2-15.2) % Heparin Anti-Xa Level 0.20 L 0.13 L (0.3-0.7) U.I./ml ABG pH (7.350-7.450) pH Units ABG pO2 (80.0-90.0) mm Hg ABG Hemoglobin (14.0-18.0) gm/dl Chloride (98-107) mmol/L BUN (9-20) mg/dL Creatinine (0.8-1.3) mg/dL Glucose (75-100) mg/dL POC Glucose 157 H (70-105) mg/dL Calcium (8.4-10.2) mg/dL 05/13/21 05/13/21 05/13/21 Range/Units 00:12 04:20 04:20 WBC 13.1 H (4.5-11.0) K/mm3 RBC 2.86 L (3.65-5.03) M/mm3 Hgb 8.5 L (11.8-15.2) gm/dl Hct 26.9 L (35.5-45.6) % RDW 15.7 H (13.2-15.2) % Heparin Anti-Xa Level (0.3-0.7) U.I./ml ABG pH (7.350-7.450) pH Units ABG pO2 (80.0-90.0) mm Hg ABG Hemoglobin (14.0-18.0) gm/dl Chloride 111.2 H (98-107) mmol/L BUN 53 H (9-20) mg/dL Creatinine 1.9 H (0.8-1.3) mg/dL Glucose 121 H (75-100) mg/dL POC Glucose 115 H (70-105) mg/dL Calcium 8.3 L (8.4-10.2) mg/dL 05/13/21 05/13/21 Range/Units 11:15 11:29 WBC (4.5-11.0) K/mm3 RBC (3.65-5.03) M/mm3 Hgb (11.8-15.2) gm/dl Hct (35.5-45.6) % RDW (13.2-15.2) % Heparin Anti-Xa Level (0.3-0.7) U.I./ml ABG pH 7.456 H (7.350-7.450) pH Units ABG pO2 106.0 H (80.0-90.0) mm Hg ABG Hemoglobin 7.1 L (14.0-18.0) gm/dl Chloride (98-107) mmol/L BUN (9-20) mg/dL Creatinine (0.8-1.3) mg/dL Glucose (75-100) mg/dL POC Glucose 121 H (70-105) mg/dL Calcium (8.4-10.2) mg/dL
--- NOTE | 2021-05-13 15:42 | Progress Note ---
<DANIELVALENTIN MatteoChalino - Last Filed: 05/13/21 15:43> Assessment and Plan Assessment and plan: This is a 56-year-old male with nicotine and cocaine abuse, atrial fibrillation, hypertension and chronic medication noncompliance complicated by homelessness admitted with acute hypoxic respiratory failure, COVID-19 pneumonia, green saminitis, NSTEMI, hypertensive emergency and acute kidney injury A/P Acute hypoxic respiratory failure -CCM consulted, appreciate recommendations -Intubated on 05/05 with 7.50 ETT at 20 over the lips in the ED -A.m. vent setting: Assist-control rate 20, tidal volume 450, PEEP 6, FiO2 30% -See RT notes for titration -PSV again today -Extubated today to NC -ABG and CXR noted -VAP bundle -Continues SPO2 monitoring -Pulmonary perfusion study showed low probability of pulmonary embolism Severe COVID-19 pneumonia/leukocytosis, Enterococcus in urine -Infectious disease consulted, appreciate recommendations -COVID-19 PCR positive -Continue droplet/precautions -Not a candidate for remdesivir given acute kidney injury -Dexamethasone for 10 days -Anticoagulation per hospital protocol -Trend COVID-19 from 2 markers (ferritin, D-dimer, CRP, LDH) -Vanco d/t Enterococcus in urine, ceftriaxone (05/10-05/13) -changed to zosyn per ID -Follow-up for speciation -follow up gonorrhea culture Acute DVT -Bilateral lower extremity Doppler ultrasound shows acute DVT -Heparin drip -No bolus -adjust per protocol Acute kidney injury likely secondary to vasomotor nephropathy -Nephrology consulted, appreciate recommendations -IVF discontinued yesterday -Avoid nephrotoxic medications -Renally dose medication -Strict intake and output -FeNa indicates prerenal -Renal ultrasound completed: 1.7 hyper echoic mass within the left upper pole -Monitor follow-up with CT once stable Hypernatremia (resolved), hyperchloremia, metabolic acidosis (resolved) -s/p MIVF with half-normal saline -Trend sodium -Free water flush Metabolic encephalopathy -Patient sedated on fentanyl drip -DC once extubated -Librium and Seroquel -librium taper starting tomorrow -Maintain sleep-wake cycle -SBT/SAT when appropriate -Monitor QTC -Avoid delirium -Bilateral restraints in place for safety -May need psych consult S/p hypertensive emergency, h/o HTN -Continue BB -Blood pressure monitoring per protocol -Resume home antihypertensive regimen as tolerated Heart failure reduced EF, cardiomyopathy, NSTEMI, paroxysmal atrial fibrillation -Continue beta-sylvia and aspirin -Resume statin therapy -Cardiology consulted, appreciate recommendations -Echo 05/04/2021-EF 35 to 40%. Moderate concentric LVH. Moderate global hypokinesis of left ventricle. Mild mitral regurgitation. Mild pulmonary hypertension. Echocardiogram reviewed (08/27/2020): LVEF is 50 to 55%. Mild to moderate concentric LVF. Severe diastolic dysfunction is present (restrictive filling). Right ventricle is mildly hypokinetic. RVSP is 48 mmHg. No valvular abnormalities. -S/p heparin drip for 24 hours -Patient had atrial fibrillation overnight on 05/10 and was treated with a Cardizem drip -Beta-sylvia increased Polysubstance abuse, tobacco abuse -UDS positive for amphetamines -We will need cessation counseling when appropriate Transaminitis, h/o hepatitis C -Renal ultrasound showed incidental finding of cholelithiasis -Trend LFTs -Continue supportive management Anemia -Trend CBC -Transfuse for hemoglobin less than 7 DVT/ GI prophylaxis -Heparin gtt -PPI The high probability of a clinically significant, sudden or life threatening deterioration of the [cardio/resp] system(s) required my full and direct attention, intervention and personal management. The aggregate critical care time was [60] minutes. This time is in addition to time spent performing reported procedures but includes the following: [x] Data Review and interpretation [x] Patient assessment and monitoring of vital signs [x] Documentation [x] Medication orders and management Disposition Plan: icu Total Time Spent with Patient (Minutes): 60 History Interval history: This is a 56-year-old male with a nicotine abuse, A. fib, hypertension, and ch ronic medication noncompliance and homelessness who presented to emergency department on 05/04 with complaints of dyspnea on exertion for the past month worsening over the past 3 days, intermittent left-sided chest tightness with activity, and persistent cough without fever. Work-up in the emergency department revealed anemia, hyponatremia, elevated BUN/creatinine and transaminitis. Patient was admitted to the hospitalist service with acute kidney injury and accelerated hypertension. Hospital course to date 05/04/2021. Cardiology was considering patient for Dietary Services Manager. However, patient with elevated creatinine therefore will hold off on cath evaluation. Nephrology consultation for acute kidney injury. Etiology likely secondary to vasomotor nephropathy/dehydration. We will start IV fluid hydration. Check renal ultrasound to rule out obstructive uropathy. We will resume home medications for the accelerated hypertension 05/05/2021. Echocardiogram reveals EF 35-40% with moderate concentric left ventricular hypertrophy. Moderate global hypokinesis of left ventricle. Mild mitral regurgitation. Mild pulmonary hypertension. Troponins are believed to be elevated in the setting of acute kidney injury. No beta-blockers due to cocaine use continue heparin and nitro drip. Continue CIWA protocol. Await urine studies 05/06/2021. Patient decompensated yesterday with worsening respiratory failure and difficulty to protect airway. Patient was breathing sonorously, and hypoxic. Patient was intubated and currently is on mechanical ventilation. Patient with AC mode ventilation rate of 20, tidal volume 450, FiO2 40% and PEEP of 6. COVID PCR testing on 05/05/2021 was found to be positive. Echocardiogram completed on this admission shows worsening EF from August 2020. Echocardiogram now reveals moderate concentric left ventricular hypertrophy with moderate global hypokinesis and EF of 35-40%. Mild pulmonary hypertension. 05/08: Continue current management, renal stable, LFTs stable and if improved will start on statin therapy. 05/09: Patient is febrile, will panculture, PSV today. CRP pending. Mucoid discharge noted from meatus which was sent for culture. Hypernatremia persists, free water flushes increased 05/10: PSV trial per [facility], T-max 102.3, given mildly elevated procalcitonin started on ceftriaxone 2 g every 24 for 2 days per ID. Overnight patient had atrial fibrillation which was treated with Cardizem drip and converted to sinus rhythm. Metoprolol p.o. increased to 3 times daily. 05/11: Patient still running fevers and if still febrile tomorrow will escalate to cefepime per ID as he is currently on ceftriaxone, [facility] attempted PSV but patient became agitated and was switched back to pressure control. Lower extremity ultrasound shows acute DVT and started on heparin drip. Started on scheduled Librium. Patient remains with hypernatremia and elevated creatinine and on IV fluids. Free water flushes adjusted. Started on vancomycin today 05/12: Patient placed on pressure support trial without fentanyl, hypernatremia improving, hyperkalemia noted. Slight improvement to renal function. 05/13: Patient was extubated today, ID change antibiotics to Zosyn for Enterococcus, was started tapering Librium in the morning, renal function slightly improved. Possible transfer to floor tomorrow. ST evaluation for swallow ordered. Hospitalist Physical - Constitutional Vitals: Temp Pulse Resp BP Pulse Ox 98.4 F 65 12 113/73 100 05/13/21 12:00 05/13/21 14:41 05/13/21 14:41 05/13/21 14:41 05/13/21 14:41 General appearance: Present: mild distress - EENT Eyes: Present: PERRL, EOM intact ENT: hearing intact, clear oral mucosa, dentition normal - Neck Neck: Present: normal ROM - Respiratory Respiratory effort: normal Respiratory: bilateral: diminished - Cardiovascular Rhythm: regular Heart Sounds: Present: S1 & S2. Absent: systolic murmur, diastolic murmur - Extremities Extremities: no ischemia, pulses intact, pulses symmetrical, No edema, normal temperature, normal color Peripheral Pulses: within normal limits - Abdominal General gastrointestinal: soft, non-tender, non-distended, normal bowel sounds - Integumentary Integumentary: Present: warm, dry - Psychiatric Psychiatric: cooperative, agitated - Neurologic Neurologic: CNII-XII intact, no focal deficits, moves all extremities - Allied Health Allied health notes reviewed: nursing, RT, social work HEART Score - HEART Score EKG: Non-specific Age: 45-65 Risk factors: 1-2 risk factors Troponin: Troponin T 1.400 ng/mL (0.00-0.029) H* 05/04/21 13:34 Troponin: 1-3x normal limit - Critical Actions Critical Actions: 4-6 pts:12-16.6% risk of adverse cardiac event. Should be admitted Results - Labs CBC & Chem 7: 05/13/21 04:20 05/13/21 04:20 Labs: Laboratory Last Values WBC 13.1 K/mm3 (4.5-11.0) H 05/13/21 04:20 RBC 2.86 M/mm3 (3.65-5.03) L 05/13/21 04:20 Hgb 8.5 gm/dl (11.8-15.2) L 05/13/21 04:20 Hct 26.9 % (35.5-45.6) L 05/13/21 04:20 MCV 94 fl (84-94) 05/13/21 04:20 MCH 30 pg (28-32) 05/13/21 04:20 MCHC 32 % (32-34) 05/13/21 04:20 RDW 15.7 % (13.2-15.2) H 05/13/21 04:20 Plt Count 220 K/mm3 (140-440) 05/13/21 04:20 Lymph % (Auto) 11.5 % (13.4-35.0) L 05/12/21 07:19 Kaufman % (Auto) 8.2 % (0.0-7.3) H 05/12/21 07:19 Eos % (Auto) 0.1 % (0.0-4.3) 05/12/21 07:19 Baso % (Auto) 0.2 % (0.0-1.8) 05/12/21 07:19 Lymph # (Auto) 1.4 K/mm3 (1.2-5.4) 05/12/21 07:19 Kaufman # (Auto) 1.0 K/mm3 (0.0-0.8) H 05/12/21 07:19 Eos # (Auto) 0.0 K/mm3 (0.0-0.4) 05/12/21 07:19 Baso # (Auto) 0.0 K/mm3 (0.0-0.1) 05/12/21 07:19 Seg Neutrophils % 80.0 % (40.0-70.0) H 05/12/21 07:19 Seg Neutrophils # 9.6 K/mm3 (1.8-7.7) H 05/12/21 07:19 PT 15.6 Sec. (12.2-14.9) H 05/11/21 14:43 INR 1.12 (0.87-1.13) 05/11/21 14:43 APTT 30.3 Sec. (24.2-36.6) 05/11/21 14:43 D-Dimer 2730.61 ng/mlDDU (0-234) H 05/12/21 07:19 Heparin Anti-Xa Level 0.39 U.I./ml (0.3-0.7) 05/13/21 10:59 ABG pH 7.456 pH Units (7.350-7.450) H 05/13/21 11:15 ABG pCO2 36.5 mm Hg 05/13/21 11:15 ABG pO2 106.0 mm Hg (80.0-90.0) H 05/13/21 11:15 ABG HCO3 25.2 mmol/L (20.0-26.0) 05/13/21 11:15 ABG O2 Saturation 98.0 % (95.0-99.0) 05/13/21 11:15 ABG O2 Content 9.8 (0.0-44) 05/13/21 11:15 ABG Base Excess 1.2 mmol/L (-2.0-3.0) 05/13/21 11:15 ABG Hemoglobin 7.1 gm/dl (14.0-18.0) L 05/13/21 11:15 ABG Carboxyhemoglobin 1.7 % (0.0-5.0) 05/13/21 11:15 ABG Methemoglobin 0.5 % (0.0-1.5) 05/13/21 11:15 Oxyhemoglobin 95.9 % (95.0-99.0) 05/13/21 11:15 FiO2 30 % 05/13/21 11:15 Sodium 145 mmol/L (137-145) 05/13/21 04:20 Potassium 4.1 mmol/L (3.6-5.0) 05/13/21 04:20 Chloride 111.2 mmol/L (98-107) H 05/13/21 04:20 Carbon Dioxide 23 mmol/L (22-30) 05/13/21 04:20 Anion Gap 15 mmol/L 05/13/21 04:20 BUN 53 mg/dL (9-20) H 05/13/21 04:20 Creatinine 1.9 mg/dL (0.8-1.3) H 05/13/21 04:20 Estimated GFR 37 ml/min 05/13/21 04:20 BUN/Creatinine Ratio 28 % 05/13/21 04:20 Glucose 121 mg/dL (75-100) H 05/13/21 04:20 POC Glucose 121 mg/dL (70-105) H 05/13/21 11:29 Calcium 8.3 mg/dL (8.4-10.2) L 05/13/21 04:20 Magnesium 2.30 mg/dL (1.7-2.3) 05/10/21 04:57 Ferritin 640.2 ng/mL (30.0-300.0) H 05/12/21 07:19 Total Bilirubin 0.60 mg/dL (0.1-1.2) 05/09/21 04:20 AST 20 units/L (5-40) 05/09/21 04:20 ALT 210 units/L (7-56) H 05/09/21 04:20 Alkaline Phosphatase 58 units/L (35-129) 05/09/21 04:20 Lactate Dehydrogenase 314 units/L (91-180) H 05/12/21 07:19 Total Creatine Kinase 406 units/L (55-170) H 05/04/21 08:42 Troponin T 1.400 ng/mL (0.00-0.029) H* 05/04/21 13:34 C-Reactive Protein 1.60 mg/dL (0.00-1.30) H 05/12/21 07:19 Total Protein 6.3 g/dL (6.3-8.2) 05/09/21 04:20 Albumin 2.9 g/dL (3.9-5) L 05/09/21 04:20 Albumin/Globulin Ratio 0.9 % 05/09/21 04:20 Triglycerides 144 mg/dL (2-149) 05/10/21 04:57 Cholesterol 140 mg/dL (50-199) 05/04/21 07:25 LDL Cholesterol Direct 89 mg/dL (50-130) 05/04/21 07:25 HDL Cholesterol 48 mg/dL (40-59) 05/04/21 07:25 Cholesterol/HDL Ratio 2.91 % 05/04/21 07:25 Procalcitonin 0.63 ng/mL (<0.15) 05/09/21 15:53 Urine Color Yellow (Yellow) 05/09/21 13:22 Urine Turbidity Turbid (Clear) 05/09/21 13:22 Urine pH 5.0 (5.0-7.0) 05/09/21 13:22 Ur Specific [place] 1.018 (1.003-1.030) 05/09/21 13:22 Urine Protein 100 mg/dl mg/dL (Negative) 05/09/21 13:22 Urine Glucose (UA) Neg mg/dL (Negative) 05/09/21 13:22 Urine Ketones Tr mg/dL (Negative) 05/09/21 13:22 Urine Blood Mod (Negative) 05/09/21 13:22 Urine Nitrite Neg (Negative) 05/09/21 13:22 Urine Bilirubin Neg (Negative) 05/09/21 13:22 Urine Urobilinogen < 2.0 mg/dL (<2.0) 05/09/21 13:22 Ur Leukocyte Esterase Mod (Negative) 05/09/21 13:22 Urine WBC (Auto) 25.0 /HPF (0.0-6.0) H 05/09/21 13:22 Urine RBC (Auto) 8.0 /HPF (0.0-6.0) 05/09/21 13:22 U Epithel Cells (Auto) < 1.0 /HPF (0-13.0) 05/09/21 13:22 Urine Bacteria (Auto) 1+ /HPF (Negative) 05/09/21 00:40 Uric Acid Crystals Few 05/09/21 00:40 Triple Phos Crystals 2+ 05/09/21 13:22 Amorphous Crystals Few 05/09/21 00:40 Urine Mucus Few /HPF 05/09/21 00:40 Urine Creatinine 100.8 mg/dL (0.1-20.0) H 05/10/21 11:03 Protein/Creatinin Ratio 0.42 05/10/21 11:03 Urine Sodium 61 mmol/L 05/05/21 09:57 Urine Total Protein 42 mg/dL (5-11.8) H 05/10/21 11:03 Urine Opiates Screen Negative 05/04/21 Unknown Urine Methadone Screen Negative 05/04/21 Unknown Ur Barbiturates Screen Negative 05/04/21 Unknown Ur Phencyclidine Scrn Negative 05/04/21 Unknown Ur Amphetamines Screen Positive 05/04/21 Unknown U Benzodiazepines Scrn Negative 05/04/21 Unknown Urine Cocaine Screen Negative 05/04/21 Unknown U Marijuana (THC) Screen Negative 05/04/21 Unknown Drugs of Abuse Note Disclamer 05/04/21 Unknown Immunofix Electrophor see below 05/05/21 03:40 AUDRA Screen Negative (Negative) 05/05/21 03:40 Proteinase 3 (PR3) Ab <1.0 AI (<1.0) 05/05/21 03:40 Myeloperoxidase Ab <1.0 AI (<1.0) 05/05/21 03:40 Complement C3 72 mg/dL (82-185) L 05/05/21 03:40 Complement C4 17 mg/dL (15-53) 05/05/21 03:40 Coronavirus (PCR) Positive (Negative) A 05/05/21 08:30 Hepatitis A IgM Ab Non-reactive (NonReactive) 05/05/21 03:40 Hep Bs Antigen Non-reactive (Negative) 05/05/21 03:40 Hep B Core IgM Ab Non-reactive (NonReactive) 05/05/21 03:40 Hepatitis C Antibody Reactive (NonReactive) A 05/05/21 03:40 Microbiology: Microbiology 05/09/21 13:53 Peripheral/Venous Blood Culture - Preliminary NO GROWTH AFTER 4 DAYS 05/09/21 13:53 Peripheral/Venous Blood Culture - Preliminary NO GROWTH AFTER 4 DAYS 05/07/21 16:16 Peripheral/Venous Blood Culture - Final NO GROWTH AFTER 5 DAYS 05/07/21 16:28 Peripheral/Venous Blood Culture - Final NO GROWTH AFTER 5 DAYS 05/09/21 15:25 Urethra Neisseria gonorrhoeae Culture - Preliminary 05/09/21 13:22 Urine,Clean Catch Urine Culture - Preliminary Enterococcus Faecalis Merino/IV: Voiding Method Condom Catheter Active Medications - Current Medications Current Medications: Generic Name Dose Route Start Last Admin Trade Name Freq PRN Reason Stop Dose Admin Acetaminophen 650 mg 05/04/21 12:34 05/11/21 11:24 Acetaminophen 325 Mg Tab PO 650 mg Q4H PRN Administration Pain MILD(1-3)/Fever >100.5/MARIA Acetaminophen 650 mg 05/07/21 16:00 05/11/21 16:25 Acetaminophen 650 Mg Rect Supp [place] 650 mg Q4H PRN Administration Pain, Mild (1-3) Aspirin 81 mg 05/06/21 14:00 05/13/21 10:14 Aspirin 81 Mg Tab Chew PO 81 mg QDAY RISHI Administration Atorvastatin Calcium 40 mg 05/09/21 22:00 05/12/21 22:35 Atorvastatin 40 Mg Tab FEEDTUBE 40 mg QHS RISHI Administration Chlordiazepoxide HCl 75 mg 05/11/21 15:00 05/13/21 09:19 Chlordiazepoxide 25 Mg Cap PO 75 mg Q8H RISHI Administration Dexamethasone 8 mg 05/08/21 12:00 05/13/21 10:15 Dexamethasone 4 Mg/Ml Vial IV 05/17/21 10:01 8 mg Q24HR RISHI Administration Dextrose 0 ml 05/09/21 10:49 Dextrose 10% *Hypoglycemia IV PRN PRN Hypoglycemia Famotidine 10 mg 05/12/21 10:00 05/13/21 10:14 Famotidine 10 Mg Tab FEEDTUBE 10 mg BID RISHI Administration Fentanyl 50 mcg 05/05/21 15:21 Fentanyl 100 Mcg/2 Ml Inj IV Q10MIN PRN ANALGESIA Haloperidol Lactate 5 mg 05/09/21 18:32 05/10/21 11:10 Haloperidol Lactate 5 Mg/1 Ml Inj IV 5 mg Q6H PRN Administration Agitation Heparin Sodium (Porcine) 3,000 unit 05/11/21 14:14 Heparin 10,000 Units/10 Ml Vial IV Q6H PRN Anti-Xa Assay < 0.1 units/ml Hydralazine HCl 50 mg 05/04/21 14:00 05/13/21 14:03 Hydralazine 25 Mg Tab PO Not Given Q8HR RISHI Hydralazine HCl 10 mg 05/07/21 16:16 05/09/21 17:35 Hydralazine 20 Mg/1 Ml Inj IV 10 mg Q2H PRN Administration Blood Pressure Hydrophilic Ointment 1 applic 05/05/21 15:21 Lip Therapy Vaseline TP Q2HR PRN Dry Lips Fentanyl Citrate 2,000 mcg in 100 mls @ 4.082 mls/hr 05/05/21 16:00 05/13/21 05:49 Fentanyl Drip Premix IV 1 mcg/kg/hr TITR RISHI 4.082 mls/hr Titration Protocol 1 MCG/KG/HR Propofol 1,000 mg in 100 mls @ 2.449 mls/hr 05/05/21 16:00 05/09/21 06:16 Diprivan 10 Mg/Ml IV 20 mcg/kg/min TITR RISHI 9.798 mls/hr Administration Protocol 5 MCG/KG/MIN Heparin Sodium/Sodium Chloride 25,000 unit in 500 mls @ 24 mls/hr 05/11/21 15:00 05/13/21 05:08 Heparin/ 0.45% Nacl-25,000 Unit/500 Ml IV 1,450 units/hr TITR RISHI 29 mls/hr Administration Protocol 1,200 UNITS/HR Piperacillin Sod/Tazobactam Sod 3.375 gm in 50 mls @ 100 mls/hr 05/13/21 15:00 Zosyn/Ns 3.375gm/50ml IV 05/18/21 07:29 Q8H RISHI Protocol Insulin Human Lispro 0 unit 05/10/21 09:40 05/12/21 16:49 Insulin Lispro 100 Unit/Ml SUB-Q 2 unit Q6HR PRN Administration Hyperglycemia Protocol Metoprolol Tartrate 50 mg 05/10/21 14:00 05/13/21 14:04 Metoprolol Tartrate 50 Mg Tab FEEDTUBE Not Given TID RISHI Multi-Ingred Cream/Lotion/Oil/Oint 1 applic 05/05/21 15:21 Mineral Oil/Petrolatum, White Ophth Oint 3.5 Gm OU Q4HR PRN Dry Eye(s) Ondansetron HCl 4 mg 05/04/21 12:34 05/04/21 21:51 Ondansetron 4 Mg/2 Ml Inj IV 4 mg Q8H PRN Administration Nausea And Vomiting Quetiapine Fumarate 200 mg 05/09/21 22:00 05/13/21 10:15 Quetiapine 200 Mg Tab PO 200 mg BID RISHI Administration Senna/Docusate Sodium 1 tab 05/05/21 22:00 05/13/21 10:14 Sennosides/Docusate Sodium 8.6/50 Mg Tab FEEDTUBE 1 tab BID RISHI Administration Sodium Chloride 10 ml 05/04/21 22:00 05/13/21 10:16 Sodium Chloride 0.9% 10 Ml Flush Syringe IV 10 ml BID RISHI Administration Sodium Chloride 10 ml 05/04/21 12:34 05/06/21 13:59 Sodium Chloride 0.9% 10 Ml Flush Syringe IV 10 ml PRN PRN Administration LINE FLUSH Sodium Chloride 10 ml 05/09/21 09:46 Sodium Chloride 0.9% 50 Ml Ivpb IV PRN PRN FLUSH Nutrition/Malnutrition Assess - Dietary Evaluation Nutrition/Malnutrition Findings: Nutrition Notes Start: 05/05/21 16:15 Freq: Status: Active Protocol: Document 05/11/21 16:30 MORALES (Rec: 05/11/21 16:40 MORALES [id number]) Nutrition Notes Initial or Follow up Brief Note Current Diet TF-Promote @ 60 ml/hr (since D 05/09). Height 5 ft 7 in Weight 81.647 kg [place] Body Weight (kg) 67.27 BMI 28.1 Weight change and time frame No body weight change in 2 days reported. Weight Status Overweight Subjective/Other Information RD consult for routine F/U on TF tolerance. TF continues as prescribed well tolerated. Pt continues on mechanical ventilation. Percent of energy/protein needs met: Prescribed Promote @ 60 ml/hr provides for energy/protein needs (1,444 Kcal/90 g) during LOS, 75% Kcal; 90% AA. #1 Nutrition Diagnosis Inadequate oral intake Diagnosis Progress(for reassessment Continues documentation) Is patient on ventilator? Yes Is Patient Ambulatory and/or Out of Bed No REE-([place] [facility] [place]conf[place] bed) [phone] Calculation Used for Recommendations 70-80% of EEN Additional Notes 15-20 Kcal/Kg ABW. Protein: 1.2-2 g/Kg; 100-164 g /day. Fluids: 1 ml/Kcal, or as per MD. Nutrition Intervention Nutrition Support: Continue Promote @ 60 ml/hr. Flush: 120 ml water Q 4 hr, or as per MD. Kcal 1,444 Protein (gm) 90 Carbohydrates (gm) 188 Fat (gm) 38 Fluid (mL) 1,212 Fiber (gm) 0 % RDI: 75% Kcal; 90% AA. Goal #1 Provide at least 75% of energy /protein needs through Enteral Feeding during LOS. Follow-Up By: 05/16/21 Additional Comments Continue monitoring TF tolerance and BM. <LALA RODARTE - Last Filed: 05/19/21 12:55> Assessment and Plan Assessment and plan: I saw and evaluated the patient. Discussed with the nurse practitioner and agree with their findings and plan as documented in this note. Hospitalist Physical - Constitutional Vitals: Temp Pulse Resp BP Pulse Ox 101.6 F H 81 30 H 131/101 100 05/19/21 11:47 05/19/21 12:00 05/19/21 12:00 05/19/21 12:00 05/19/21 12:00 HEART Score - HEART Score Troponin: Troponin T 0.400 ng/mL (0.00-0.029) H* D 05/16/21 18:40 Results - Labs CBC & Chem 7: 05/19/21 05:23 05/19/21 05:23 Labs: Laboratory Last Values WBC 18.5 K/mm3 (4.5-11.0) H 05/19/21 05:23 RBC 3.31 M/mm3 (3.65-5.03) L 05/19/21 05:23 Hgb 9.9 gm/dl (11.8-15.2) L 05/19/21 05:23 Hct 31.1 % (35.5-45.6) L 05/19/21 05:23 MCV 94 fl (84-94) 05/19/21 05:23 MCH 30 pg (28-32) 05/19/21 05:23 MCHC 32 % (32-34) 05/19/21 05:23 RDW 16.9 % (13.2-15.2) H 05/19/21 05:23 Plt Count 370 K/mm3 (140-440) 05/19/21 05:23 Lymph % (Auto) Greens Laborer 05/16/21 10:21 Kaufman % (Auto) Greens Laborer 05/16/21 10:21 Eos % (Auto) Greens Laborer 05/16/21 10:21 Baso % (Auto) Greens Laborer 05/16/21 10:21 Lymph # (Auto) Greens Laborer 05/16/21 10:21 Kaufman # (Auto) Greens Laborer 05/16/21 10:21 Eos # (Auto) Greens Laborer 05/16/21 10:21 Baso # (Auto) Greens Laborer 05/16/21 10:21 Add Manual Diff Complete 05/16/21 10:21 Total Counted 100 05/16/21 10:21 Seg Neutrophils % Greens Laborer 05/16/21 10:21 Seg Neuts % (Manual) 83.0 % (40.0-70.0) H 05/16/21 10:21 Band Neutrophils % 2.0 % 05/16/21 10:21 Lymphocytes % (Manual) 4.0 % (13.4-35.0) L 05/16/21 10:21 Reactive Lymphs % (Man) 0 % 05/16/21 10:21 Monocytes % (Manual) 9.0 % (0.0-7.3) H 05/16/21 10:21 Eosinophils % (Manual) 0 % (0.0-4.3) 05/16/21 10:21 Basophils % (Manual) 0 % (0.0-1.8) 05/16/21 10:21 Metamyelocytes % 0 % 05/16/21 10:21 Myelocytes % 2.0 % 05/16/21 10:21 Promyelocytes % 0 % 05/16/21 10:21 Blast Cells % 0 % 05/16/21 10:21 Nucleated RBC % Not Reportable 05/16/21 10:21 Seg Neutrophils # Greens Laborer 05/16/21 10:21 Seg Neutrophils # Man 22.9 K/mm3 (1.8-7.7) H 05/16/21 10:21 Band Neutrophils # 0.6 K/mm3 05/16/21 10:21 Lymphocytes # (Manual) 1.1 K/mm3 (1.2-5.4) L 05/16/21 10:21 Abs React Lymphs (Man) 0.0 K/mm3 05/16/21 10:21 Monocytes # (Manual) 2.5 K/mm3 (0.0-0.8) H 05/16/21 10:21 Eosinophils # (Manual) 0.0 K/mm3 (0.0-0.4) 05/16/21 10:21 Basophils # (Manual) 0.0 K/mm3 (0.0-0.1) 05/16/21 10:21 Metamyelocytes # 0.0 K/mm3 05/16/21 10:21 Myelocytes # 0.6 K/mm3 05/16/21 10:21 Promyelocytes # 0.0 K/mm3 05/16/21 10:21 Blast Cells # 0.0 K/mm3 05/16/21 10:21 WBC Morphology Not Reportable 05/16/21 10:21 Hypersegmented Neuts Not Reportable 05/16/21 10:21 Hyposegmented Neuts Not Reportable 05/16/21 10:21 Hypogranular Neuts Not Reportable 05/16/21 10:21 Smudge Cells Not Reportable 05/16/21 10:21 Toxic Granulation Not Reportable 05/16/21 10:21 Toxic Vacuolation Not Reportable 05/16/21 10:21 Dohle Bodies Not Reportable 05/16/21 10:21 Pelger-Huet Anomaly Not Reportable 05/16/21 10:21 Jesse Rods Not Reportable 05/16/21 10:21 Platelet Estimate Consistent w auto 05/16/21 10:21 Clumped Platelets Few 05/16/21 10:21 Plt Clumps, EDTA Not Reportable 05/16/21 10:21 Large Platelets Not Reportable 05/16/21 10:21 Giant Platelets Not Reportable 05/16/21 10:21 Platelet Satelliting Not Reportable 05/16/21 10:21 Plt Morphology Comment Not Reportable 05/16/21 10:21 RBC Morphology Not Reportable 05/16/21 10:21 Dimorphic RBCs Not Reportable 05/16/21 10:21 Polychromasia Not Reportable 05/16/21 10:21 Hypochromasia Not Reportable 05/16/21 10:21 Poikilocytosis Not Reportable 05/16/21 10:21 Anisocytosis 1+ 05/16/21 10:21 Microcytosis Not Reportable 05/16/21 10:21 Macrocytosis Few 05/16/21 10:21 Spherocytes Not Reportable 05/16/21 10:21 Pappenheimer Bodies Not Reportable 05/16/21 10:21 Sickle Cells Not Reportable 05/16/21 10:21 Target Cells Not Reportable 05/16/21 10:21 Tear Drop Cells Not Reportable 05/16/21 10:21 Ovalocytes Not Reportable 05/16/21 10:21 Helmet Cells Not Reportable 05/16/21 10:21 Murphy-[place] Bodies Not Reportable 05/16/21 10:21 [place] Rings Not Reportable 05/16/21 10:21 Alec Cells Not Reportable 05/16/21 10:21 Bite Cells Not Reportable 05/16/21 10:21 Crenated Cell Not Reportable 05/16/21 10:21 Elliptocytes Not Reportable 05/16/21 10:21 Acanthocytes (Spur) Not Reportable 05/16/21 10:21 Rouleaux Not Reportable 05/16/21 10:21 Hemoglobin C Crystals Not Reportable 05/16/21 10:21 Schistocytes Not Reportable 05/16/21 10:21 Malaria parasites Not Reportable 05/16/21 10:21 Tomi Bodies Not Reportable 05/16/21 10:21 Hem Pathologist Commnt No 05/16/21 10:21 PT 15.6 Sec. (12.2-14.9) H 05/11/21 14:43 INR 1.12 (0.87-1.13) 05/11/21 14:43 APTT 30.3 Sec. (24.2-36.6) 05/11/21 14:43 D-Dimer 2730.61 ng/mlDDU (0-234) H 05/12/21 07:19 Heparin Anti-Xa Level 0.47 U.I./ml (0.3-0.7) 05/19/21 05:23 ABG pH 7.428 pH Units (7.350-7.450) 05/18/21 12:50 ABG pCO2 43.3 mm Hg 05/18/21 12:50 ABG pO2 79.6 mm Hg (80.0-90.0) L 05/18/21 12:50 ABG HCO3 28.0 mmol/L (20.0-26.0) H 05/18/21 12:50 ABG O2 Saturation 97.0 % (95.0-99.0) 05/18/21 12:50 ABG O2 Content 8.4 (0.0-44) 05/18/21 12:50 ABG Base Excess 3.3 mmol/L (-2.0-3.0) H 05/18/21 12:50 ABG Hemoglobin 6.2 gm/dl (14.0-18.0) L 05/18/21 12:50 ABG Carboxyhemoglobin 1.5 % (0.0-5.0) 05/18/21 12:50 ABG Methemoglobin 0.4 % (0.0-1.5) 05/18/21 12:50 Oxyhemoglobin 95.2 % (95.0-99.0) 05/18/21 12:50 FiO2 40 % 05/18/21 12:50 Sodium 141 mmol/L (137-145) 05/19/21 05:23 Sodium 142 mmol/L (137-145) 05/19/21 05:23 Potassium 4.5 mmol/L (3.6-5.0) 05/19/21 05:23 Potassium 4.8 mmol/L (3.6-5.0) 05/19/21 05:23 Chloride 104.8 mmol/L (98-107) 05/19/21 05:23 Chloride 105.4 mmol/L (98-107) 05/19/21 05:23 Carbon Dioxide 24 mmol/L (22-30) 05/19/21 05:23 Carbon Dioxide 26 mmol/L (22-30) 05/19/21 05:23 Anion Gap 16 mmol/L 05/19/21 05:23 Anion Gap 16 mmol/L 05/19/21 05:23 BUN 34 mg/dL (9-20) H 05/19/21 05:23 BUN 35 mg/dL (9-20) H 05/19/21 05:23 Creatinine 2.0 mg/dL (0.8-1.3) H 05/19/21 05:23 Creatinine 2.1 mg/dL (0.8-1.3) H 05/19/21 05:23 Estimated GFR 33 ml/min 05/19/21 05:23 Estimated GFR 35 ml/min 05/19/21 05:23 BUN/Creatinine Ratio 16 % 05/19/21 05:23 BUN/Creatinine Ratio 18 % 05/19/21 05:23 Glucose 90 mg/dL (75-100) 05/19/21 05:23 Glucose 94 mg/dL (75-100) 05/19/21 05:23 POC Glucose 111 mg/dL (70-105) H 05/19/21 11:24 Calcium 8.9 mg/dL (8.4-10.2) 05/19/21 05:23 Calcium 9.1 mg/dL (8.4-10.2) 05/19/21 05:23 Phosphorus 4.00 mg/dL (2.5-4.5) 05/14/21 15:44 Magnesium 2.00 mg/dL (1.7-2.3) 05/14/21 15:44 Ferritin 640.2 ng/mL (30.0-300.0) H 05/12/21 07:19 Total Bilirubin 0.60 mg/dL (0.1-1.2) 05/16/21 10:21 AST 34 units/L (5-40) 05/16/21 10:21 ALT 51 units/L (7-56) 05/16/21 10:21 Alkaline Phosphatase 74 units/L (35-129) 05/16/21 10:21 Lactate Dehydrogenase 314 units/L (91-180) H 05/12/21 07:19 Total Creatine Kinase 406 units/L (55-170) H 05/04/21 08:42 Troponin T 0.400 ng/mL (0.00-0.029) H* D 05/16/21 18:40 C-Reactive Protein 1.60 mg/dL (0.00-1.30) H 05/12/21 07:19 Total Protein 7.4 g/dL (6.3-8.2) 05/16/21 10:21 Albumin 3.1 g/dL (3.9-5) L 05/16/21 10:21 Albumin/Globulin Ratio 0.7 % 05/16/21 10:21 Triglycerides 144 mg/dL (2-149) 05/10/21 04:57 Cholesterol 140 mg/dL (50-199) 05/04/21 07:25 LDL Cholesterol Direct 89 mg/dL (50-130) 05/04/21 07:25 HDL Cholesterol 48 mg/dL (40-59) 05/04/21 07:25 Cholesterol/HDL Ratio 2.91 % 05/04/21 07:25 Procalcitonin 0.63 ng/mL (<0.15) 05/09/21 15:53 Urine Color Yellow (Yellow) 05/09/21 13:22 Urine Turbidity Turbid (Clear) 05/09/21 13:22 Urine pH 5.0 (5.0-7.0) 05/09/21 13:22 Ur Specific [place] 1.018 (1.003-1.030) 05/09/21 13:22 Urine Protein 100 mg/dl mg/dL (Negative) 05/09/21 13:22 Urine Glucose (UA) Neg mg/dL (Negative) 05/09/21 13:22 Urine Ketones Tr mg/dL (Negative) 05/09/21 13:22 Urine Blood Mod (Negative) 05/09/21 13:22 Urine Nitrite Neg (Negative) 05/09/21 13:22 Urine Bilirubin Neg (Negative) 05/09/21 13:22 Urine Urobilinogen < 2.0 mg/dL (<2.0) 05/09/21 13:22 Ur Leukocyte Esterase Mod (Negative) 05/09/21 13:22 Urine WBC (Auto) 25.0 /HPF (0.0-6.0) H 05/09/21 13:22 Urine RBC (Auto) 8.0 /HPF (0.0-6.0) 05/09/21 13:22 U Epithel Cells (Auto) < 1.0 /HPF (0-13.0) 05/09/21 13:22 Urine Bacteria (Auto) 1+ /HPF (Negative) 05/09/21 00:40 Uric Acid Crystals Few 05/09/21 00:40 Triple Phos Crystals 2+ 05/09/21 13:22 Amorphous Crystals Few 05/09/21 00:40 Urine Mucus Few /HPF 05/09/21 00:40 Urine Creatinine 100.8 mg/dL (0.1-20.0) H 05/10/21 11:03 Protein/Creatinin Ratio 0.42 05/10/21 11:03 Urine Sodium 61 mmol/L 05/05/21 09:57 Urine Total Protein 42 mg/dL (5-11.8) H 05/10/21 11:03 Urine Opiates Screen Negative 05/04/21 Unknown Urine Methadone Screen Negative 05/04/21 Unknown Ur Barbiturates Screen Negative 05/04/21 Unknown Ur Phencyclidine Scrn Negative 05/04/21 Unknown Ur Amphetamines Screen Positive 05/04/21 Unknown U Benzodiazepines Scrn Negative 05/04/21 Unknown Urine Cocaine Screen Negative 05/04/21 Unknown U Marijuana (THC) Screen Negative 05/04/21 Unknown Drugs of Abuse Note Disclamer 05/04/21 Unknown Immunofix Electrophor see below 05/05/21 03:40 AUDRA Screen Negative (Negative) 05/05/21 03:40 Proteinase 3 (PR3) Ab <1.0 AI (<1.0) 05/05/21 03:40 Myeloperoxidase Ab <1.0 AI (<1.0) 05/05/21 03:40 Complement C3 72 mg/dL (82-185) L 05/05/21 03:40 Complement C4 17 mg/dL (15-53) 05/05/21 03:40 Coronavirus (PCR) Positive (Negative) A 05/05/21 08:30 Hepatitis A IgM Ab Non-reactive (NonReactive) 05/05/21 03:40 Hep Bs Antigen Non-reactive (Negative) 05/05/21 03:40 Hep B Core IgM Ab Non-reactive (NonReactive) 05/05/21 03:40 Hepatitis C Antibody Reactive (NonReactive) A 05/05/21 03:40 Microbiology: Microbiology 05/16/21 10:31 Tracheal Aspirate Sputum Culture - Final Enterobacter Aerogenes Merino/IV: Voiding Method Indwelling Catheter Active Medications - Current Medications Current Medications: Generic Name Dose Route Start Last Admin Trade Name Freq PRN Reason Stop Dose Admin Acetaminophen 650 mg 05/04/21 12:34 05/19/21 11:47 Acetaminophen 325 Mg Tab PO 650 mg Q4H PRN Administration Pain MILD(1-3)/Fever >100.5/MARIA Acetaminophen 650 mg 05/07/21 16:00 05/11/21 16:25 Acetaminophen 650 Mg Rect Supp [place] 650 mg Q4H PRN Administration Pain, Mild (1-3) Amlodipine Besylate 5 mg 05/19/21 11:00 05/19/21 10:38 Amlodipine 5 Mg Tab PO 5 mg QDAY RISHI Administration Aspirin 81 mg 05/06/21 14:00 05/19/21 09:00 Aspirin 81 Mg Tab Chew PO 81 mg QDAY RISHI Administration Atorvastatin Calcium 40 mg 05/09/21 22:00 05/18/21 21:33 Atorvastatin 40 Mg Tab FEEDTUBE 40 mg QHS RISHI Administration Chlordiazepoxide HCl 75 mg 05/11/21 15:00 05/19/21 08:55 Chlordiazepoxide 25 Mg Cap PO 75 mg Q8H RISHI Administration Dextrose 0 ml 05/09/21 10:49 05/14/21 06:55 Dextrose 10% *Hypoglycemia IV 250 ml PRN PRN Administration Hypoglycemia Famotidine 10 mg 05/17/21 10:00 05/19/21 09:00 Famotidine 10 Mg Tab FEEDTUBE 10 mg BID RISHI Administration Haloperidol Lactate 5 mg 05/09/21 18:32 05/18/21 19:52 Haloperidol Lactate 5 Mg/1 Ml Inj IV 5 mg Q6H PRN Administration Agitation Heparin Sodium (Porcine) 3,000 unit 05/11/21 14:14 Heparin 10,000 Units/10 Ml Vial IV Q6H PRN Anti-Xa Assay < 0.1 units/ml Hydralazine HCl 50 mg 05/04/21 14:00 05/19/21 08:56 Hydralazine 25 Mg Tab PO 50 mg Q8HR RISHI Administration Hydrophilic Ointment 1 applic 05/05/21 15:21 Lip Therapy Vaseline TP Q2HR PRN Dry Lips Heparin Sodium/Sodium Chloride 25,000 unit in 500 mls @ 24 mls/hr 05/11/21 15:00 05/19/21 06:59 Heparin/ 0.45% Nacl-25,000 Unit/500 Ml IV 1,550 units/hr TITR RISHI 31 mls/hr Titration Protocol 1,200 UNITS/HR Cefepime HCl 2 gm in 100 mls @ 200 mls/hr 05/18/21 18:00 05/18/21 17:27 Cefepime/Ns 2 Gm/100 Ml IV 200 mls/hr Q24H RISHI Administration Protocol Insulin Human Lispro 0 unit 05/10/21 09:40 05/12/21 16:49 Insulin Lispro 100 Unit/Ml SUB-Q 2 unit Q6HR PRN Administration Hyperglycemia Protocol Labetalol HCl 10 mg 05/15/21 10:24 Labetalol 20 Mg/4 Ml Inj IV Q4H PRN sbp> 160. Metoprolol Tartrate 50 mg 05/10/21 14:00 05/19/21 08:55 Metoprolol Tartrate 50 Mg Tab FEEDTUBE 50 mg TID RISHI Administration Multi-Ingred Cream/Lotion/Oil/Oint 1 applic 05/05/21 15:21 Mineral Oil/Petrolatum, White Ophth Oint 3.5 Gm OU Q4HR PRN Dry Eye(s) Ondansetron HCl 4 mg 05/04/21 12:34 05/04/21 21:51 Ondansetron 4 Mg/2 Ml Inj IV 4 mg Q8H PRN Administration Nausea And Vomiting Quetiapine Fumarate 100 mg 05/19/21 22:00 Quetiapine 100 Mg Tab PO BID RISHI Senna/Docusate Sodium 1 tab 05/05/21 22:00 05/19/21 09:00 Sennosides/Docusate Sodium 8.6/50 Mg Tab FEEDTUBE Not Given BID RISHI Sodium Chloride 10 ml 05/04/21 22:00 05/19/21 09:00 Sodium Chloride 0.9% 10 Ml Flush Syringe IV 10 ml BID RISHI Administration Sodium Chloride 10 ml 05/04/21 12:34 05/06/21 13:59 Sodium Chloride 0.9% 10 Ml Flush Syringe IV 10 ml PRN PRN Administration LINE FLUSH Sodium Chloride 10 ml 05/09/21 09:46 Sodium Chloride 0.9% 50 Ml Ivpb IV PRN PRN FLUSH Nutrition/Malnutrition Assess - Dietary Evaluation Nutrition/Malnutrition Findings: Nutrition Notes Start: 05/05/21 16:15 Freq: Status: Active Protocol: Document 05/16/21 10:32 ROSAURA (Rec: 05/16/21 10:48 ROSAURA [id number]) Nutrition Notes Initial or Follow up Reassessment Current Diagnosis Acute Kidney Injury, Hypertension,Heart Failure, Respiratory Failure Other Pertinent Diagnosis 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 Percent of energy/protein needs met: 75% energy 92% pro Minimum of two criteria No #1 Nutrition Diagnosis Inadequate oral intake Diagnosis Progress(for reassessment Continues documentation) Is patient on ventilator? Yes Is Patient Ambulatory and/or Out of Bed No REE-([facility]-confined to bed) 5591.602 Calculation Used for Recommendations [facility] Additional Notes Pro needs 1.2-2g/k-163g/ day Fluid needs 1ml/kcal Nutrition Intervention Nutrition Support: Continue Promote at 60ml/hr with 200ml water flush q4 until hypernatremia resolved. When Na lab is WNL, reduce water flush to 50ml q4h. Kcal 1,440 Protein (gm) 90 Carbohydrates (gm) 187 Fat (gm) 37 Fluid (mL) 1,208 Fiber (gm) 0 Goal #1 TF tolerance Goal #2 TF to meet at least 75% energy and pro needs Follow-Up By: 05/20/21 Additional Comments F/U: TF tolerance, Na lab/ water flushes, BG lab/need for reduced CHO formula, vent status
[2021-05-13] MEDS: PIPERACILLIN/TAZOBACTAM 3.375 3.375 GM/50 ML BAG IV SCH ×2 (18:03→23:22)
[2021-05-13] MEDS: HALOPERIDOL LACTATE 5 MG/1 ML INJ IV PRN (20:56)
[2021-05-14] MEDS: DEXTROSE 10% *Hypoglycemia IV PRN ×3 (00:15→06:55)
[2021-05-14] MEDS: D5W/0.9% NACL 1,000 ML IV SCH ×2 (00:59→13:09)
[2021-05-14] MEDS: hydrALAZINE 20 MG/1 ML INJ IV PRN ×2 (02:40→05:49)
[2021-05-14] MEDS: HALOPERIDOL LACTATE 5 MG/1 ML INJ IV PRN (03:47)
[2021-05-14 05:14] LABS: Hematocrit 29.3 % (35.5-45.6); Hemoglobin 9.4 gm/dl (11.8-15.2); Mean Corpuscular HGB Conc 32 % (32-34); Mean Corpuscular Volume 94 fl (84-94); Platelet Count 239 K/mm3 (140-440); Red Blood Count 3.11 M/mm3 (3.65-5.03); Red Cell Distribution Width 15.4 % (13.2-15.2)
[2021-05-14 05:29] LABS: Calcium 8.7 mg/dL (8.4-10.2)
[2021-05-14] MEDS: FREE WATER PO SCH ×4 (06:23→18:17)
[2021-05-14] MEDS: hydrALAZINE 25 MG TAB PO SCH ×3 (06:23→22:48)
[2021-05-14] MEDS: PIPERACILLIN/TAZOBACTAM 3.375 3.375 GM/50 ML BAG IV SCH ×3 (08:43→22:49)
[2021-05-14] MEDS: chlordiazePOXIDE 25 MG CAP PO SCH ×3 (08:43→22:47)
[2021-05-14] MEDS: METOPROLOL TARTRATE 50 MG TAB FEEDTUBE SCH ×3 (08:46→22:47)
--- NOTE | 2021-05-14 08:48 | Progress Note ---
<DANEILVALENTIN MatteoChalino - Last Filed: 05/14/21 15:23> Assessment and Plan Assessment and plan: This is a 56-year-old male with nicotine and cocaine abuse, atrial fibrillation, hypertension and chronic medication noncompliance complicated by homelessness admitted with acute hypoxic respiratory failure, COVID-19 pneumonia, green saminitis, NSTEMI, hypertensive emergency and acute kidney injury A/P Acute hypoxic respiratory failure -CCM consulted, appreciate recommendations -Intubated on 05/05 with 7.50 ETT at 20 over the lips in the ED and extubated 05/13 -Supplemental Oxygenation as needed -Pulm hygiene -Continues SPO2 monitoring -Pulmonary perfusion study showed low probability of pulmonary embolism Severe COVID-19 pneumonia/leukocytosis, Enterococcus in urine -Infectious disease consulted, appreciate recommendations -COVID-19 PCR positive -Continue droplet/precautions -Not a candidate for remdesivir given acute kidney injury -Dexamethasone for 10 days -Anticoagulation per hospital protocol -Trend COVID-19 from 2 markers (ferritin, D-dimer, CRP, LDH) -Vanco d/t Enterococcus in urine, ceftriaxone (05/10-05/13) -changed to zosyn per ID -Follow-up for speciation -GC negative Acute DVT -Bilateral lower extremity Doppler ultrasound shows acute DVT -Heparin drip -No bolus -adjust per protocol Acute kidney injury likely secondary to vasomotor nephropathy -Nephrology consulted, appreciate recommendations -s/p IVF -Avoid nephrotoxic medications -Renally dose medication -Strict intake and output -FeNa indicates prerenal -Renal ultrasound completed: 1.7 hyper echoic mass within the left upper pole -Monitor follow-up with CT once stable Hypernatremia (resolved), hyperchloremia, metabolic acidosis (resolved) -s/p MIVF with half-normal saline -Trend sodium -Free water flush Metabolic encephalopathy -s/p fentanyl drip -Librium and Seroquel -Maintain sleep-wake cycle -Monitor QTC -Avoid delirium -Bilateral restraints in place for safety -May need psych consult S/p hypertensive emergency, h/o HTN -Continue BB -Blood pressure monitoring per protocol -Resume home antihypertensive regimen as tolerated Heart failure reduced EF, cardiomyopathy, NSTEMI, paroxysmal atrial fibrillation -Continue beta-sylvia and aspirin -Resume statin therapy -Cardiology consulted, appreciate recommendations -Echo 05/04/2021-EF 35 to 40%. Moderate concentric LVH. Moderate global hypokinesis of left ventricle. Mild mitral regurgitation. Mild pulmonary hypertension. Echocardiogram reviewed (08/27/2020): LVEF is 50 to 55%. Mild to moderate concentric LVF. Severe diastolic dysfunction is present (restrictive filling). Right ventricle is mildly hypokinetic. RVSP is 48 mmHg. No valvular abnormalities. -S/p heparin drip for 24 hours -Patient had atrial fibrillation overnight on 05/10 and was treated with a Cardizem drip -Beta-sylvia increased Polysubstance abuse, tobacco abuse -UDS positive for amphetamines -We will need cessation counseling when appropriate Transaminitis, h/o hepatitis C -Renal ultrasound showed incidental finding of cholelithiasis -Trend LFTs -Continue supportive management Anemia -Trend CBC -Transfuse for hemoglobin less than 7 DVT/ GI prophylaxis -Heparin gtt -PPI The high probability of a clinically significant, sudden or life threatening deterioration of the [cardio/resp] system(s) required my full and direct attention, intervention and personal management. The aggregate critical care time was [60] minutes. This time is in addition to time spent performing rep orted procedures but includes the following: [x] Data Review and interpretation [x] Patient assessment and monitoring of vital signs [x] Documentation [x] Medication orders and management Disposition Plan: icu Total Time Spent with Patient (Minutes): 60 History Interval history: This is a 56-year-old male with a nicotine abuse, A. fib, hypertension, and chronic medication noncompliance and homelessness who presented to emergency department on 05/04 with complaints of dyspnea on exertion for the past month worsening over the past 3 days, intermittent left-sided chest tightness with activity, and persistent cough without fever. Work-up in the emergency department revealed anemia, hyponatremia, elevated BUN/creatinine and transaminitis. Patient was admitted to the hospitalist service with acute kidney injury and accelerated hypertension. Hospital course to date 05/04/2021. 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 However, patient with elevated creatinine therefore will hold off on cath evaluation. Nephrology consultation for acute kidney injury. Etiology likely secondary to vasomotor nephropathy/dehydration. We will start IV fluid hydration. Check renal ultrasound to rule out obstructive uropathy. We will resume home medications for the accelerated hypertension 05/05/2021. Echocardiogram reveals EF 35-40% with moderate concentric left vent ricular hypertrophy. Moderate global hypokinesis of left ventricle. Mild mitral regurgitation. Mild pulmonary hypertension. Troponins are believed to be elevated in the setting of acute kidney injury. No beta-blockers due to cocaine use continue heparin and nitro drip. Continue CIWA protocol. Await urine studies 05/06/2021. Patient decompensated yesterday with worsening respiratory failure and difficulty to protect airway. Patient was breathing sonorously, and hypoxic. Patient was intubated and currently is on mechanical ventilation. Patient with AC mode ventilation rate of 20, tidal volume 450, FiO2 40% and PEEP of 6. COVID PCR testing on 05/05/2021 was found to be positive. Echocardiogram completed on this admission shows worsening EF from August 2020. Echocardiogram now reveals moderate concentric left ventricular hypertrophy with moderate global hypokinesis and EF of 35-40%. Mild pulmonary hypertension. 05/08: Continue current management, renal stable, LFTs stable and if improved will start on statin therapy. 05/09: Patient is febrile, will panculture, PSV today. CRP pending. Mucoid discharge noted from meatus which was sent for culture. Hypernatremia persists, free water flushes increased 05/10: PSV trial per [facility], T-max 102.3, given mildly elevated procalcitonin started on ceftriaxone 2 g every 24 for 2 days per ID. Overnight patient had atrial fibrillation which was treated with Cardizem drip and converted to sinus rhythm. Metoprolol p.o. increased to 3 times daily. 05/11: Patient still running fevers and if still febrile tomorrow will escalate to cefepime per ID as he is currently on ceftriaxone, [facility] attempted PSV but patient became agitated and was switched back to pressure control. Lower extremity ultrasound shows acute DVT and started on heparin drip. Started on scheduled Librium. Patient remains with hypernatremia and elevated creatinine and on IV fluids. Free water flushes adjusted. Started on vancomycin today 05/12: Patient placed on pressure support trial without fentanyl, hypernatremia improving, hyperkalemia noted. Slight improvement to renal function. 05/13: Patient was extubated today, ID change antibiotics to Zosyn for En terococcus, was started tapering Librium in the morning, renal function slightly improved. Possible transfer to floor tomorrow. ST evaluation for swallow ordered. 05/14: Patient became hypoglycemic overnight and started on dextrose IV fluids. Accu-Chek fingersticks have been low but on a.m. BMP patient blood glucose is 100. Other BMP pending. Feeding tube replaced due to need for enteral access and patient being severely confused. Renal functions remains the same. Upon confirmation will restart tube feedings, p.o. medications and free water flushes. Hospitalist Physical - Constitutional Vitals: Temp Pulse Resp BP Pulse Ox 99.2 F 92 H 19 176/97 99 05/14/21 08:00 05/14/21 08:00 05/14/21 08:00 05/14/21 08:00 05/14/21 08:00 General appearance: Present: mild distress - EENT Eyes: Present: PERRL, EOM intact ENT: clear oral mucosa, dentition normal - Neck Neck: Present: normal ROM - Respiratory Respiratory effort: normal Respiratory: bilateral: diminished - Cardiovascular Rhythm: regular Heart Sounds: Present: S1 & S2. Absent: systolic murmur, diastolic murmur - Extremities Extremities: no ischemia, pulses intact, pulses symmetrical, No edema, normal temperature, normal color Peripheral Pulses: within normal limits - Abdominal General gastrointestinal: soft, non-tender, non-distended, normal bowel sounds - Integumentary Integumentary: Present: warm, dry - Psychiatric Psychiatric: agitated - Neurologic Neurologic: moves all extremities - Allied Health Allied health notes reviewed: nursing, RT, social work HEART Score - HEART Score EKG: Non-specific Age: 45-65 Risk factors: 1-2 risk factors Troponin: Troponin T 1.400 ng/mL (0.00-0.029) H* 05/04/21 13:34 Troponin: 1-3x normal limit - Critical Actions Critical Actions: 4-6 pts:12-16.6% risk of adverse cardiac event. Should be admitted Results - Labs CBC & Chem 7: 05/14/21 04:26 05/14/21 12:05 Labs: Laboratory Last Values WBC 14.2 K/mm3 (4.5-11.0) H 05/14/21 04:26 RBC 3.11 M/mm3 (3.65-5.03) L 05/14/21 04:26 Hgb 9.4 gm/dl (11.8-15.2) L 05/14/21 04:26 Hct 29.3 % (35.5-45.6) L 05/14/21 04:26 MCV 94 fl (84-94) 05/14/21 04:26 MCH 30 pg (28-32) 05/14/21 04:26 MCHC 32 % (32-34) 05/14/21 04:26 RDW 15.4 % (13.2-15.2) H 05/14/21 04:26 Plt Count 239 K/mm3 (140-440) 05/14/21 04:26 Lymph % (Auto) 11.5 % (13.4-35.0) L 05/12/21 07:19 [place] % (Auto) 8.2 % (0.0-7.3) H 05/12/21 07:19 Eos % (Auto) 0.1 % (0.0-4.3) 05/12/21 07:19 Baso % (Auto) 0.2 % (0.0-1.8) 05/12/21 07:19 Lymph # (Auto) 1.4 K/mm3 (1.2-5.4) 05/12/21 07:19 [place] # (Auto) 1.0 K/mm3 (0.0-0.8) H 05/12/21 07:19 Eos # (Auto) 0.0 K/mm3 (0.0-0.4) 05/12/21 07:19 Baso # (Auto) 0.0 K/mm3 (0.0-0.1) 05/12/21 07:19 Seg Neutrophils % 80.0 % (40.0-70.0) H 05/12/21 07:19 Seg Neutrophils # 9.6 K/mm3 (1.8-7.7) H 05/12/21 07:19 PT 15.6 Sec. (12.2-14.9) H 05/11/21 14:43 INR 1.12 (0.87-1.13) 05/11/21 14:43 APTT 30.3 Sec. (24.2-36.6) 05/11/21 14:43 D-Dimer 2730.61 ng/mlDDU (0-234) H 05/12/21 07:19 Heparin Anti-Xa Level 0.42 U.I./ml (0.3-0.7) 05/14/21 04:26 ABG pH 7.456 pH Units (7.350-7.450) H 05/13/21 11:15 ABG pCO2 36.5 mm Hg 05/13/21 11:15 ABG pO2 106.0 mm Hg (80.0-90.0) H 05/13/21 11:15 ABG HCO3 25.2 mmol/L (20.0-26.0) 05/13/21 11:15 ABG O2 Saturation 98.0 % (95.0-99.0) 05/13/21 11:15 ABG O2 Content 9.8 (0.0-44) 05/13/21 11:15 ABG Base Excess 1.2 mmol/L (-2.0-3.0) 05/13/21 11:15 ABG Hemoglobin 7.1 gm/dl (14.0-18.0) L 05/13/21 11:15 ABG Carboxyhemoglobin 1.7 % (0.0-5.0) 05/13/21 11:15 ABG Methemoglobin 0.5 % (0.0-1.5) 05/13/21 11:15 Oxyhemoglobin 95.9 % (95.0-99.0) 05/13/21 11:15 FiO2 30 % 05/13/21 11:15 Sodium 141 mmol/L (137-145) 05/14/21 04:26 Potassium 3.4 mmol/L (3.6-5.0) L 05/14/21 04:26 Chloride 107.6 mmol/L (98-107) H 05/14/21 04:26 Carbon Dioxide 23 mmol/L (22-30) 05/14/21 04:26 Anion Gap 14 mmol/L 05/14/21 04:26 BUN 42 mg/dL (9-20) H 05/14/21 04:26 Creatinine 1.9 mg/dL (0.8-1.3) H 05/14/21 04:26 Estimated GFR 37 ml/min 05/14/21 04:26 BUN/Creatinine Ratio 22 % 05/14/21 04:26 Glucose 100 mg/dL (75-100) 05/14/21 04:26 POC Glucose 62 mg/dL (70-105) L 05/14/21 06:51 Calcium 8.7 mg/dL (8.4-10.2) 05/14/21 04:26 Magnesium 2.30 mg/dL (1.7-2.3) 05/10/21 04:57 Ferritin 640.2 ng/mL (30.0-300.0) H 05/12/21 07:19 Total Bilirubin 0.60 mg/dL (0.1-1.2) 05/09/21 04:20 AST 20 units/L (5-40) 05/09/21 04:20 ALT 210 units/L (7-56) H 05/09/21 04:20 Alkaline Phosphatase 58 units/L (35-129) 05/09/21 04:20 Lactate Dehydrogenase 314 units/L (91-180) H 05/12/21 07:19 Total Creatine Kinase 406 units/L (55-170) H 05/04/21 08:42 Troponin T 1.400 ng/mL (0.00-0.029) H* 05/04/21 13:34 C-Reactive Protein 1.60 mg/dL (0.00-1.30) H 05/12/21 07:19 Total Protein 6.3 g/dL (6.3-8.2) 05/09/21 04:20 Albumin 2.9 g/dL (3.9-5) L 05/09/21 04:20 Albumin/Globulin Ratio 0.9 % 05/09/21 04:20 Triglycerides 144 mg/dL (2-149) 05/10/21 04:57 Cholesterol 140 mg/dL (50-199) 05/04/21 07:25 LDL Cholesterol Direct 89 mg/dL (50-130) 05/04/21 07:25 HDL Cholesterol 48 mg/dL (40-59) 05/04/21 07:25 Cholesterol/HDL Ratio 2.91 % 05/04/21 07:25 Procalcitonin 0.63 ng/mL (<0.15) 05/09/21 15:53 Urine Color Yellow (Yellow) 05/09/21 13:22 Urine Turbidity Turbid (Clear) 05/09/21 13:22 Urine pH 5.0 (5.0-7.0) 05/09/21 13:22 Ur Specific [place] 1.018 (1.003-1.030) 05/09/21 13:22 Urine Protein 100 mg/dl mg/dL (Negative) 05/09/21 13:22 Urine Glucose (UA) Neg mg/dL (Negative) 05/09/21 13:22 Urine Ketones Tr mg/dL (Negative) 05/09/21 13:22 Urine Blood Mod (Negative) 05/09/21 13:22 Urine Nitrite Neg (Negative) 05/09/21 13:22 Urine Bilirubin Neg (Negative) 05/09/21 13:22 Urine Urobilinogen < 2.0 mg/dL (<2.0) 05/09/21 13:22 Ur Leukocyte Esterase Mod (Negative) 05/09/21 13:22 Urine WBC (Auto) 25.0 /HPF (0.0-6.0) H 05/09/21 13:22 Urine RBC (Auto) 8.0 /HPF (0.0-6.0) 05/09/21 13:22 U Epithel Cells (Auto) < 1.0 /HPF (0-13.0) 05/09/21 13:22 Urine Bacteria (Auto) 1+ /HPF (Negative) 05/09/21 00:40 Uric Acid Crystals Few 05/09/21 00:40 Triple Phos Crystals 2+ 05/09/21 13:22 Amorphous Crystals Few 05/09/21 00:40 Urine Mucus Few /HPF 05/09/21 00:40 Urine Creatinine 100.8 mg/dL (0.1-20.0) H 05/10/21 11:03 Protein/Creatinin Ratio 0.42 05/10/21 11:03 Urine Sodium 61 mmol/L 05/05/21 09:57 Urine Total Protein 42 mg/dL (5-11.8) H 05/10/21 11:03 Urine Opiates Screen Negative 05/04/21 Unknown Urine Methadone Screen Negative 05/04/21 Unknown Ur Barbiturates Screen Negative 05/04/21 Unknown Ur Phencyclidine Scrn Negative 05/04/21 Unknown Ur Amphetamines Screen Positive 05/04/21 Unknown U Benzodiazepines Scrn Negative 05/04/21 Unknown Urine Cocaine Screen Negative 05/04/21 Unknown U Marijuana (THC) Screen Negative 05/04/21 Unknown Drugs of Abuse Note Disclamer 05/04/21 Unknown Immunofix Electrophor see below 05/05/21 03:40 AUDRA Screen Negative (Negative) 05/05/21 03:40 Proteinase 3 (PR3) Ab <1.0 AI (<1.0) 05/05/21 03:40 Myeloperoxidase Ab <1.0 AI (<1.0) 05/05/21 03:40 Complement C3 72 mg/dL (82-185) L 05/05/21 03:40 Complement C4 17 mg/dL (15-53) 05/05/21 03:40 Coronavirus (PCR) Positive (Negative) A 05/05/21 08:30 Hepatitis A IgM Ab Non-reactive (NonReactive) 05/05/21 03:40 Hep Bs Antigen Non-reactive (Negative) 05/05/21 03:40 Hep B Core IgM Ab Non-reactive (NonReactive) 05/05/21 03:40 Hepatitis C Antibody Reactive (NonReactive) A 05/05/21 03:40 Microbiology: Microbiology 05/09/21 15:25 Urethra Neisseria gonorrhoeae Culture - Final 05/09/21 13:53 Peripheral/Venous Blood Culture - Preliminary NO GROWTH AFTER 4 DAYS 05/09/21 13:53 Peripheral/Venous Blood Culture - Preliminary NO GROWTH AFTER 4 DAYS Merino/IV: Voiding Method Indwelling Catheter Active Medications - Current Medications Current Medications: Generic Name Dose Route Start Last Admin Trade Name Freq PRN Reason Stop Dose Admin Acetaminophen 650 mg 05/04/21 12:34 05/11/21 11:24 Acetaminophen 325 Mg Tab PO 650 mg Q4H PRN Administration Pain MILD(1-3)/Fever >100.5/MARIA Acetaminophen 650 mg 05/07/21 16:00 05/11/21 16:25 Acetaminophen 650 Mg Rect Supp [place] 650 mg Q4H PRN Administration Pain, Mild (1-3) Aspirin 81 mg 05/06/21 14:00 05/13/21 10:14 Aspirin 81 Mg Tab Chew PO 81 mg QDAY RISHI Administration Atorvastatin Calcium 40 mg 05/09/21 22:00 05/13/21 22:08 Atorvastatin 40 Mg Tab FEEDTUBE Not Given QHS RISHI Chlordiazepoxide HCl 75 mg 05/11/21 15:00 05/14/21 08:43 Chlordiazepoxide 25 Mg Cap PO Not Given Q8H RISHI Dexamethasone 8 mg 05/08/21 12:00 05/13/21 10:15 Dexamethasone 4 Mg/Ml Vial IV 05/17/21 10:01 8 mg Q24HR RISHI Administration Dextrose 0 ml 05/09/21 10:49 05/14/21 06:55 Dextrose 10% *Hypoglycemia IV 250 ml PRN PRN Administration Hypoglycemia Famotidine 20 mg 05/14/21 10:00 Famotidine 20 Mg/2 Ml Inj IV QDAY RISHI Haloperidol Lactate 5 mg 05/09/21 18:32 05/14/21 03:47 Haloperidol Lactate 5 Mg/1 Ml Inj IV 5 mg Q6H PRN Administration Agitation Heparin Sodium (Porcine) 3,000 unit 05/11/21 14:14 Heparin 10,000 Units/10 Ml Vial IV Q6H PRN Anti-Xa Assay < 0.1 units/ml Hydralazine HCl 50 mg 05/04/21 14:00 05/14/21 06:23 Hydralazine 25 Mg Tab PO Not Given Q8HR [facility] Hydralazine HCl 10 mg 05/07/21 16:16 05/14/21 05:49 Hydralazine 20 Mg/1 Ml Inj IV 10 mg Q2H PRN Administration Blood Pressure Hydrophilic Ointment 1 applic 05/05/21 15:21 Lip Therapy Vaseline TP Q2HR PRN Dry Lips Propofol 1,000 mg in 100 mls @ 2.449 mls/hr 05/05/21 16:00 05/09/21 06:16 Diprivan 10 Mg/Ml IV 20 mcg/kg/min TITR RISHI 9.798 mls/hr Administration Protocol 5 MCG/KG/MIN Heparin Sodium/Sodium Chloride 25,000 unit in 500 mls @ 24 mls/hr 05/11/21 15:00 05/13/21 22:07 Heparin/ 0.45% Nacl-25,000 Unit/500 Ml IV 1,450 units/hr TITR RISHI 29 mls/hr Administration Protocol 1,200 UNITS/HR Piperacillin Sod/Tazobactam Sod 3.375 gm in 50 mls @ 100 mls/hr 05/13/21 15:00 05/14/21 08:43 Zosyn/Ns 3.375gm/50ml IV 05/18/21 07:29 100 mls/hr Q8H RISHI Administration Protocol Dextrose/Sodium Chloride 1,000 mls @ 100 mls/hr 05/14/21 01:00 05/14/21 00:59 D5ns IV 100 mls/hr DIRECT RISHI Administration Insulin Human Lispro 0 unit 05/10/21 09:40 05/12/21 16:49 Insulin Lispro 100 Unit/Ml SUB-Q 2 unit Q6HR PRN Administration Hyperglycemia Protocol Metoprolol Tartrate 50 mg 05/10/21 14:00 05/14/21 08:46 Metoprolol Tartrate 50 Mg Tab FEEDTUBE Not Given TID RSIHI Multi-Ingred Cream/Lotion/Oil/Oint 1 applic 05/05/21 15:21 Mineral Oil/Petrolatum, White Ophth Oint 3.5 Gm OU Q4HR PRN Dry Eye(s) Ondansetron HCl 4 mg 05/04/21 12:34 05/04/21 21:51 Ondansetron 4 Mg/2 Ml Inj IV 4 mg Q8H PRN Administration Nausea And Vomiting Quetiapine Fumarate 200 mg 05/09/21 22:00 05/13/21 22:08 Quetiapine 200 Mg Tab PO Not Given BID RISHI Senna/Docusate Sodium 1 tab 05/05/21 22:00 05/13/21 22:08 Sennosides/Docusate Sodium 8.6/50 Mg Tab FEEDTUBE Not Given BID RISHI Sodium Chloride 10 ml 05/04/21 22:00 05/13/21 22:08 Sodium Chloride 0.9% 10 Ml Flush Syringe IV 10 ml BID RISHI Administration Sodium Chloride 10 ml 05/04/21 12:34 05/06/21 13:59 Sodium Chloride 0.9% 10 Ml Flush Syringe IV 10 ml PRN PRN Administration LINE FLUSH Sodium Chloride 10 ml 05/09/21 09:46 Sodium Chloride 0.9% 50 Ml Ivpb IV PRN PRN FLUSH Nutrition/Malnutrition Assess - Dietary Evaluation Nutrition/Malnutrition Findings: Nutrition Notes Start: 05/05/21 16:15 Freq: Status: Active Protocol: Document 05/11/21 16:30 MORALES (Rec: 05/11/21 16:40 MORALES [id number]) Nutrition Notes Initial or Follow up Brief Note Current Diet TF-Promote @ 60 ml/hr (since D 05/09). Height 5 ft 7 in Weight 81.647 kg Calvin Body Weight (kg) 67.27 BMI 28.1 Weight change and time frame No body weight change in 2 days reported. Weight Status Overweight Subjective/Other Information RD consult for routine F/U on TF tolerance. TF continues as prescribed well tolerated. Pt continues on mechanical ventilation. Percent of energy/protein needs met: Prescribed Promote @ 60 ml/hr provides for energy/protein needs (1,444 Kcal/90 g) during LOS, 75% Kcal; 90% AA. #1 Nutrition Diagnosis Inadequate oral intake Diagnosis Progress(for reassessment Continues documentation) Is patient on ventilator? Yes Is Patient Ambulatory and/or Out of Bed No REE-([facility]-confined to bed) 7474.141 Calculation Used for Recommendations 70-80% of EEN Additional Notes 15-20 Kcal/Kg ABW. Protein: 1.2-2 g/Kg; 100-164 g /day. Fluids: 1 ml/Kcal, or as per MD. Nutrition Intervention Nutrition Support: Continue Promote @ 60 ml/hr. Flush: 120 ml water Q 4 hr, or as per MD. Kcal 1,444 Protein (gm) 90 Carbohydrates (gm) 188 Fat (gm) 38 Fluid (mL) 1,212 Fiber (gm) 0 % RDI: 75% Kcal; 90% AA. Goal #1 Provide at least 75% of energy /protein needs through Enteral Feeding during LOS. Follow-Up By: 05/16/21 Additional Comments Continue monitoring TF tolerance and BM. <LALA RODARTE - Last Filed: 05/19/21 12:55> Assessment and Plan Assessment and plan: I saw and evaluated the patient. Discussed with the nurse practitioner and agree with their findings and plan as documented in this note. Hospitalist Physical - Constitutional Vitals: Temp Pulse Resp BP Pulse Ox 101.6 F H 81 30 H 131/101 100 05/19/21 11:47 05/19/21 12:00 05/19/21 12:00 05/19/21 12:00 05/19/21 12:00 HEART Score - HEART Score Troponin: Troponin T 0.400 ng/mL (0.00-0.029) H* D 05/16/21 18:40 Results - Labs CBC & Chem 7: 05/19/21 05:23 05/19/21 05:23 Labs: Laboratory Last Values WBC 18.5 K/mm3 (4.5-11.0) H 05/19/21 05:23 RBC 3.31 M/mm3 (3.65-5.03) L 05/19/21 05:23 Hgb 9.9 gm/dl (11.8-15.2) L 05/19/21 05:23 Hct 31.1 % (35.5-45.6) L 05/19/21 05:23 MCV 94 fl (84-94) 05/19/21 05:23 MCH 30 pg (28-32) 05/19/21 05:23 MCHC 32 % (32-34) 05/19/21 05:23 RDW 16.9 % (13.2-15.2) H 05/19/21 05:23 Plt Count 370 K/mm3 (140-440) 05/19/21 05:23 Lymph % (Auto) Secretarial Stenographer 05/16/21 10:21 [place] % (Auto) Secretarial Stenographer 05/16/21 10:21 Eos % (Auto) Secretarial Stenographer 05/16/21 10:21 Baso % (Auto) Secretarial Stenographer 05/16/21 10:21 Lymph # (Auto) Secretarial Stenographer 05/16/21 10:21 [place] # (Auto) Secretarial Stenographer 05/16/21 10:21 Eos # (Auto) Secretarial Stenographer 05/16/21 10:21 Baso # (Auto) Secretarial Stenographer 05/16/21 10:21 Add Manual Diff Complete 05/16/21 10:21 Total Counted 100 05/16/21 10:21 Seg Neutrophils % Secretarial Stenographer 05/16/21 10:21 Seg Neuts % (Manual) 83.0 % (40.0-70.0) H 05/16/21 10:21 Band Neutrophils % 2.0 % 05/16/21 10:21 Lymphocytes % (Manual) 4.0 % (13.4-35.0) L 05/16/21 10:21 Reactive Lymphs % (Man) 0 % 05/16/21 10:21 Monocytes % (Manual) 9.0 % (0.0-7.3) H 05/16/21 10:21 Eosinophils % (Manual) 0 % (0.0-4.3) 05/16/21 10:21 Basophils % (Manual) 0 % (0.0-1.8) 05/16/21 10:21 Metamyelocytes % 0 % 05/16/21 10:21 Myelocytes % 2.0 % 05/16/21 10:21 Promyelocytes % 0 % 05/16/21 10:21 Blast Cells % 0 % 05/16/21 10:21 Nucleated RBC % Not Reportable 05/16/21 10:21 Seg Neutrophils # Secretarial Stenographer 05/16/21 10:21 Seg Neutrophils # Man 22.9 K/mm3 (1.8-7.7) H 05/16/21 10:21 Band Neutrophils # 0.6 K/mm3 05/16/21 10:21 Lymphocytes # (Manual) 1.1 K/mm3 (1.2-5.4) L 05/16/21 10:21 Abs React Lymphs (Man) 0.0 K/mm3 05/16/21 10:21 Monocytes # (Manual) 2.5 K/mm3 (0.0-0.8) H 05/16/21 10:21 Eosinophils # (Manual) 0.0 K/mm3 (0.0-0.4) 05/16/21 10:21 Basophils # (Manual) 0.0 K/mm3 (0.0-0.1) 05/16/21 10:21 Metamyelocytes # 0.0 K/mm3 05/16/21 10:21 Myelocytes # 0.6 K/mm3 05/16/21 10:21 Promyelocytes # 0.0 K/mm3 05/16/21 10:21 Blast Cells # 0.0 K/mm3 05/16/21 10:21 WBC Morphology Not Reportable 05/16/21 10:21 Hypersegmented Neuts Not Reportable 05/16/21 10:21 Hyposegmented Neuts Not Reportable 05/16/21 10:21 Hypogranular Neuts Not Reportable 05/16/21 10:21 Smudge Cells Not Reportable 05/16/21 10:21 Toxic Granulation Not Reportable 05/16/21 10:21 Toxic Vacuolation Not Reportable 05/16/21 10:21 Dohle Bodies Not Reportable 05/16/21 10:21 Pelger-Huet Anomaly Not Reportable 05/16/21 10:21 Jesse Rods Not Reportable 05/16/21 10:21 Platelet Estimate Consistent w auto 05/16/21 10:21 Clumped Platelets Few 05/16/21 10:21 Plt Clumps, EDTA Not Reportable 05/16/21 10:21 Large Platelets Not Reportable 05/16/21 10:21 Giant Platelets Not Reportable 05/16/21 10:21 Platelet Satelliting Not Reportable 05/16/21 10:21 Plt Morphology Comment Not Reportable 05/16/21 10:21 RBC Morphology Not Reportable 05/16/21 10:21 Dimorphic RBCs Not Reportable 05/16/21 10:21 Polychromasia Not Reportable 05/16/21 10:21 Hypochromasia Not Reportable 05/16/21 10:21 Poikilocytosis Not Reportable 05/16/21 10:21 Anisocytosis 1+ 05/16/21 10:21 Microcytosis Not Reportable 05/16/21 10:21 Macrocytosis Few 05/16/21 10:21 Spherocytes Not Reportable 05/16/21 10:21 Pappenheimer Bodies Not Reportable 05/16/21 10:21 Sickle Cells Not Reportable 05/16/21 10:21 Target Cells Not Reportable 05/16/21 10:21 Tear Drop Cells Not Reportable 05/16/21 10:21 Ovalocytes Not Reportable 05/16/21 10:21 Helmet Cells Not Reportable 05/16/21 10:21 Murphy-Bartley Bodies Not Reportable 05/16/21 10:21 [place] Rings Not Reportable 05/16/21 10:21 [place] Cells Not Reportable 05/16/21 10:21 Bite Cells Not Reportable 05/16/21 10:21 Crenated Cell Not Reportable 05/16/21 10:21 Elliptocytes Not Reportable 05/16/21 10:21 Acanthocytes (Spur) Not Reportable 05/16/21 10:21 Rouleaux Not Reportable 05/16/21 10:21 Hemoglobin C Crystals Not Reportable 05/16/21 10:21 Schistocytes Not Reportable 05/16/21 10:21 Malaria parasites Not Reportable 05/16/21 10:21 Tomi Bodies Not Reportable 05/16/21 10:21 Hem Pathologist Commnt No 05/16/21 10:21 PT 15.6 Sec. (12.2-14.9) H 05/11/21 14:43 INR 1.12 (0.87-1.13) 05/11/21 14:43 APTT 30.3 Sec. (24.2-36.6) 05/11/21 14:43 D-Dimer 2730.61 ng/mlDDU (0-234) H 05/12/21 07:19 Heparin Anti-Xa Level 0.47 U.I./ml (0.3-0.7) 05/19/21 05:23 ABG pH 7.428 pH Units (7.350-7.450) 05/18/21 12:50 ABG pCO2 43.3 mm Hg 05/18/21 12:50 ABG pO2 79.6 mm Hg (80.0-90.0) L 05/18/21 12:50 ABG HCO3 28.0 mmol/L (20.0-26.0) H 05/18/21 12:50 ABG O2 Saturation 97.0 % (95.0-99.0) 05/18/21 12:50 ABG O2 Content 8.4 (0.0-44) 05/18/21 12:50 ABG Base Excess 3.3 mmol/L (-2.0-3.0) H 05/18/21 12:50 ABG Hemoglobin 6.2 gm/dl (14.0-18.0) L 05/18/21 12:50 ABG Carboxyhemoglobin 1.5 % (0.0-5.0) 05/18/21 12:50 ABG Methemoglobin 0.4 % (0.0-1.5) 05/18/21 12:50 Oxyhemoglobin 95.2 % (95.0-99.0) 05/18/21 12:50 FiO2 40 % 05/18/21 12:50 Sodium 141 mmol/L (137-145) 05/19/21 05:23 Sodium 142 mmol/L (137-145) 05/19/21 05:23 Potassium 4.5 mmol/L (3.6-5.0) 05/19/21 05:23 Potassium 4.8 mmol/L (3.6-5.0) 05/19/21 05:23 Chloride 104.8 mmol/L (98-107) 05/19/21 05:23 Chloride 105.4 mmol/L (98-107) 05/19/21 05:23 Carbon Dioxide 24 mmol/L (22-30) 05/19/21 05:23 Carbon Dioxide 26 mmol/L (22-30) 05/19/21 05:23 Anion Gap 16 mmol/L 05/19/21 05:23 Anion Gap 16 mmol/L 05/19/21 05:23 BUN 34 mg/dL (9-20) H 05/19/21 05:23 BUN 35 mg/dL (9-20) H 05/19/21 05:23 Creatinine 2.0 mg/dL (0.8-1.3) H 05/19/21 05:23 Creatinine 2.1 mg/dL (0.8-1.3) H 05/19/21 05:23 Estimated GFR 33 ml/min 05/19/21 05:23 Estimated GFR 35 ml/min 05/19/21 05:23 BUN/Creatinine Ratio 16 % 05/19/21 05:23 BUN/Creatinine Ratio 18 % 05/19/21 05:23 Glucose 90 mg/dL (75-100) 05/19/21 05:23 Glucose 94 mg/dL (75-100) 05/19/21 05:23 POC Glucose 111 mg/dL (70-105) H 05/19/21 11:24 Calcium 8.9 mg/dL (8.4-10.2) 05/19/21 05:23 Calcium 9.1 mg/dL (8.4-10.2) 05/19/21 05:23 Phosphorus 4.00 mg/dL (2.5-4.5) 05/14/21 15:44 Magnesium 2.00 mg/dL (1.7-2.3) 05/14/21 15:44 Ferritin 640.2 ng/mL (30.0-300.0) H 05/12/21 07:19 Total Bilirubin 0.60 mg/dL (0.1-1.2) 05/16/21 10:21 AST 34 units/L (5-40) 05/16/21 10:21 ALT 51 units/L (7-56) 05/16/21 10:21 Alkaline Phosphatase 74 units/L (35-129) 05/16/21 10:21 Lactate Dehydrogenase 314 units/L (91-180) H 05/12/21 07:19 Total Creatine Kinase 406 units/L (55-170) H 05/04/21 08:42 Troponin T 0.400 ng/mL (0.00-0.029) H* D 05/16/21 18:40 C-Reactive Protein 1.60 mg/dL (0.00-1.30) H 05/12/21 07:19 Total Protein 7.4 g/dL (6.3-8.2) 05/16/21 10:21 Albumin 3.1 g/dL (3.9-5) L 05/16/21 10:21 Albumin/Globulin Ratio 0.7 % 05/16/21 10:21 Triglycerides 144 mg/dL (2-149) 05/10/21 04:57 Cholesterol 140 mg/dL (50-199) 05/04/21 07:25 LDL Cholesterol Direct 89 mg/dL (50-130) 05/04/21 07:25 HDL Cholesterol 48 mg/dL (40-59) 05/04/21 07:25 Cholesterol/HDL Ratio 2.91 % 05/04/21 07:25 Procalcitonin 0.63 ng/mL (<0.15) 05/09/21 15:53 Urine Color Yellow (Yellow) 05/09/21 13:22 Urine Turbidity Turbid (Clear) 05/09/21 13:22 Urine pH 5.0 (5.0-7.0) 05/09/21 13:22 Ur Specific Clover 1.018 (1.003-1.030) 05/09/21 13:22 Urine Protein 100 mg/dl mg/dL (Negative) 05/09/21 13:22 Urine Glucose (UA) Neg mg/dL (Negative) 05/09/21 13:22 Urine Ketones Tr mg/dL (Negative) 05/09/21 13:22 Urine Blood Mod (Negative) 05/09/21 13:22 Urine Nitrite Neg (Negative) 05/09/21 13:22 Urine Bilirubin Neg (Negative) 05/09/21 13:22 Urine Urobilinogen < 2.0 mg/dL (<2.0) 05/09/21 13:22 Ur Leukocyte Esterase Mod (Negative) 05/09/21 13:22 Urine WBC (Auto) 25.0 /HPF (0.0-6.0) H 05/09/21 13:22 Urine RBC (Auto) 8.0 /HPF (0.0-6.0) 05/09/21 13:22 U Epithel Cells (Auto) < 1.0 /HPF (0-13.0) 05/09/21 13:22 Urine Bacteria (Auto) 1+ /HPF (Negative) 05/09/21 00:40 Uric Acid Crystals Few 05/09/21 00:40 Triple Phos Crystals 2+ 05/09/21 13:22 Amorphous Crystals Few 05/09/21 00:40 Urine Mucus Few /HPF 05/09/21 00:40 Urine Creatinine 100.8 mg/dL (0.1-20.0) H 05/10/21 11:03 Protein/Creatinin Ratio 0.42 05/10/21 11:03 Urine Sodium 61 mmol/L 05/05/21 09:57 Urine Total Protein 42 mg/dL (5-11.8) H 05/10/21 11:03 Urine Opiates Screen Negative 05/04/21 Unknown Urine Methadone Screen Negative 05/04/21 Unknown Ur Barbiturates Screen Negative 05/04/21 Unknown Ur Phencyclidine Scrn Negative 05/04/21 Unknown Ur Amphetamines Screen Positive 05/04/21 Unknown U Benzodiazepines Scrn Negative 05/04/21 Unknown Urine Cocaine Screen Negative 05/04/21 Unknown U Marijuana (THC) Screen Negative 05/04/21 Unknown Drugs of Abuse Note Disclamer 05/04/21 Unknown Immunofix Electrophor see below 05/05/21 03:40 AUDRA Screen Negative (Negative) 05/05/21 03:40 Proteinase 3 (PR3) Ab <1.0 AI (<1.0) 05/05/21 03:40 Myeloperoxidase Ab <1.0 AI (<1.0) 05/05/21 03:40 Complement C3 72 mg/dL (82-185) L 05/05/21 03:40 Complement C4 17 mg/dL (15-53) 05/05/21 03:40 Coronavirus (PCR) Positive (Negative) A 05/05/21 08:30 Hepatitis A IgM Ab Non-reactive (NonReactive) 05/05/21 03:40 Hep Bs Antigen Non-reactive (Negative) 05/05/21 03:40 Hep B Core IgM Ab Non-reactive (NonReactive) 05/05/21 03:40 Hepatitis C Antibody Reactive (NonReactive) A 05/05/21 03:40 Microbiology: Microbiology 05/16/21 10:31 Tracheal Aspirate Sputum Culture - Final Enterobacter Aerogenes Merino/IV: Voiding Method Indwelling Catheter Active Medications - Current Medications Current Medications: Generic Name Dose Route Start Last Admin Trade Name Freq PRN Reason Stop Dose Admin Acetaminophen 650 mg 05/04/21 12:34 05/19/21 11:47 Acetaminophen 325 Mg Tab PO 650 mg Q4H PRN Administration Pain MILD(1-3)/Fever >100.5/MARIA Acetaminophen 650 mg 05/07/21 16:00 05/11/21 16:25 Acetaminophen 650 Mg Rect Supp [place] 650 mg Q4H PRN Administration Pain, Mild (1-3) Amlodipine Besylate 5 mg 05/19/21 11:00 05/19/21 10:38 Amlodipine 5 Mg Tab PO 5 mg QDAY RISHI Administration Aspirin 81 mg 05/06/21 14:00 05/19/21 09:00 Aspirin 81 Mg Tab Chew PO 81 mg QDAY RISHI Administration Atorvastatin Calcium 40 mg 05/09/21 22:00 05/18/21 21:33 Atorvastatin 40 Mg Tab FEEDTUBE 40 mg QHS RISHI Administration Chlordiazepoxide HCl 75 mg 05/11/21 15:00 05/19/21 08:55 Chlordiazepoxide 25 Mg Cap PO 75 mg Q8H RISHI Administration Dextrose 0 ml 05/09/21 10:49 05/14/21 06:55 Dextrose 10% *Hypoglycemia IV 250 ml PRN PRN Administration Hypoglycemia Famotidine 10 mg 05/17/21 10:00 05/19/21 09:00 Famotidine 10 Mg Tab FEEDTUBE 10 mg BID RISHI Administration Haloperidol Lactate 5 mg 05/09/21 18:32 05/18/21 19:52 Haloperidol Lactate 5 Mg/1 Ml Inj IV 5 mg Q6H PRN Administration Agitation Heparin Sodium (Porcine) 3,000 unit 05/11/21 14:14 Heparin 10,000 Units/10 Ml Vial IV Q6H PRN Anti-Xa Assay < 0.1 units/ml Hydralazine HCl 50 mg 05/04/21 14:00 05/19/21 08:56 Hydralazine 25 Mg Tab PO 50 mg Q8HR RISHI Administration Hydrophilic Ointment 1 applic 05/05/21 15:21 Lip Therapy Vaseline TP Q2HR PRN Dry Lips Heparin Sodium/Sodium Chloride 25,000 unit in 500 mls @ 24 mls/hr 05/11/21 15:00 05/19/21 06:59 Heparin/ 0.45% Nacl-25,000 Unit/500 Ml IV 1,550 units/hr TITR RISHI 31 mls/hr Titration Protocol 1,200 UNITS/HR Cefepime HCl 2 gm in 100 mls @ 200 mls/hr 05/18/21 18:00 05/18/21 17:27 Cefepime/Ns 2 Gm/100 Ml IV 200 mls/hr Q24H RISHI Administration Protocol Insulin Human Lispro 0 unit 05/10/21 09:40 05/12/21 16:49 Insulin Lispro 100 Unit/Ml SUB-Q 2 unit Q6HR PRN Administration Hyperglycemia Protocol Labetalol HCl 10 mg 05/15/21 10:24 Labetalol 20 Mg/4 Ml Inj IV Q4H PRN sbp> 160. Metoprolol Tartrate 50 mg 05/10/21 14:00 05/19/21 08:55 Metoprolol Tartrate 50 Mg Tab FEEDTUBE 50 mg TID RISHI Administration Multi-Ingred Cream/Lotion/Oil/Oint 1 applic 05/05/21 15:21 Mineral Oil/Petrolatum, White Ophth Oint 3.5 Gm OU Q4HR PRN Dry Eye(s) Ondansetron HCl 4 mg 05/04/21 12:34 05/04/21 21:51 Ondansetron 4 Mg/2 Ml Inj IV 4 mg Q8H PRN Administration Nausea And Vomiting Quetiapine Fumarate 100 mg 05/19/21 22:00 Quetiapine 100 Mg Tab PO BID RISHI Senna/Docusate Sodium 1 tab 05/05/21 22:00 05/19/21 09:00 Sennosides/Docusate Sodium 8.6/50 Mg Tab FEEDTUBE Not Given BID RISHI Sodium Chloride 10 ml 05/04/21 22:00 05/19/21 09:00 Sodium Chloride 0.9% 10 Ml Flush Syringe IV 10 ml BID RISHI Administration Sodium Chloride 10 ml 05/04/21 12:34 05/06/21 13:59 Sodium Chloride 0.9% 10 Ml Flush Syringe IV 10 ml PRN PRN Administration LINE FLUSH Sodium Chloride 10 ml 05/09/21 09:46 Sodium Chloride 0.9% 50 Ml Ivpb IV PRN PRN FLUSH Nutrition/Malnutrition Assess - Dietary Evaluation Nutrition/Malnutrition Findings: Nutrition Notes Start: 05/05/21 16:15 Freq: Status: Active Protocol: Document 05/16/21 10:32 ROSAURA (Rec: 05/16/21 10:48 ROSAURA [id number]) Nutrition Notes Initial or Follow up Reassessment Current Diagnosis Acute Kidney Injury, Hypertension,Heart Failure, Respiratory Failure Other Pertinent Diagnosis Severe COVID-19 pneu, metabolic encephalopathy, polysubstance dependence Current Diet TF - Promote at 60ml/hr Labs/Tests Reviewed Pertinent Medications Lasix, Heparin gtt Height 5 ft 7 in Weight 81.647 kg Calvin Body Weight (kg) 67.27 BMI 28.1 Weight Status Overweight Subjective/Other Information Pt extubated on 05/13, however, was re-intubated this am sec to resp distress. Percent of energy/protein needs met: 75% energy 92% pro Minimum of two criteria No #1 Nutrition Diagnosis Inadequate oral intake Diagnosis Progress(for reassessment Continues documentation) Is patient on ventilator? Yes Is Patient Ambulatory and/or Out of Bed No REE-([facility]-confined to bed) 8213.608 Calculation Used for Recommendations [facility] Additional Notes Pro needs 1.2-2g/k-163g/ day Fluid needs 1ml/kcal Nutrition Intervention Nutrition Support: Continue Promote at 60ml/hr with 200ml water flush q4 until hypernatremia resolved. When Na lab is WNL, reduce water flush to 50ml q4h. Kcal 1,440 Protein (gm) 90 Carbohydrates (gm) 187 Fat (gm) 37 Fluid (mL) 1,208 Fiber (gm) 0 Goal #1 TF tolerance Goal #2 TF to meet at least 75% energy and pro needs Follow-Up By: 05/20/21 Additional Comments F/U: TF tolerance, Na lab/ water flushes, BG lab/need for reduced CHO formula, vent status
--- NOTE | 2021-05-14 09:04 | Progress Note ---
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 UOP and lytes are stable. Creatinine is 2.3->2.5->2.2->1.9->1.9 * IVF prn as tolerated to maintain euvolemia, note non-oliguric urine output, currently on D5W likely with hypoglycemia ongoing * Serum sodium stable now, continue free water flushes with TFs * Replete K prn, note K 3.4 this AM * Await pending serologies and urine lytes- ANCA negative, AUDRA negative, C4 WNL. C3 mildly low at 72, no change to management for now. Urine protein/creatinine minimal at 0.4g * Renal ultrasound reviewed - will need follow up CT once stable * Continue antiHTN medications * Cardiology, ICU input noted * Dose medications for renal function * Avoid potential nephrotoxins * Strict I/O Subjective Date of service: 05/14/21 Principal diagnosis: AHRF; COVID-19 infection; NSTEMI; YE; HFrEF (35-40%); Polysubstance abuse Interval history: Patient extubated, on NC. Chart, vitals, labs reviewed. On D5W at 100cc/hr Objective - Vital Signs Vital signs: Vital Signs - 12hr 05/13/21 05/13/21 05/13/21 21:35 22:00 23:01 Temperature Pulse Rate 72 71 77 Pulse Rate [ From Monitor] Respiratory 13 16 14 Rate Blood Pressure 151/92 152/98 152/98 O2 Sat by Pulse 96 95 96 Oximetry 05/14/21 05/14/21 05/14/21 00:00 00:01 01:01 Temperature 98.8 F Pulse Rate 77 74 82 Pulse Rate [ 74 From Monitor] Respiratory 14 14 17 Rate Blood Pressure 152/103 151/106 O2 Sat by Pulse 99 98 100 Oximetry 05/14/21 05/14/21 05/14/21 02:01 02:40 03:00 Temperature Pulse Rate 83 83 86 Pulse Rate [ From Monitor] Respiratory 24 17 Rate Blood Pressure 160/107 160/107 158/95 O2 Sat by Pulse 91 81 L Oximetry 05/14/21 05/14/21 05/14/21 03:31 04:00 04:01 Temperature 98.7 F Pulse Rate 82 83 Pulse Rate [ 74 From Monitor] Respiratory 14 13 Rate Blood Pressure 155/98 O2 Sat by Pulse 99 95 Oximetry 05/14/21 05/14/21 05/14/21 05:00 05:49 06:00 Temperature Pulse Rate 85 83 84 Pulse Rate [ From Monitor] Respiratory 16 38 H Rate Blood Pressure 173/106 167/113 145/95 O2 Sat by Pulse 97 Oximetry 05/14/21 05/14/21 07:01 08:00 Temperature 99.2 F Pulse Rate 97 H 88 Pulse Rate [ 92 H From Monitor] Respiratory 19 12 Rate Blood Pressure 161/101 176/97 O2 Sat by Pulse 99 96 Oximetry - Lab 05/14/21 04:26 05/14/21 04:26 Most recent lab results ABG pH 7.456 pH Units (7.350-7.450) H 05/13/21 11:15 ABG pCO2 36.5 mm Hg 05/13/21 11:15 ABG pO2 106.0 mm Hg (80.0-90.0) H 05/13/21 11:15 ABG HCO3 25.2 mmol/L (20.0-26.0) 05/13/21 11:15 ABG O2 Saturation 98.0 % (95.0-99.0) 05/13/21 11:15 Calcium 8.7 mg/dL (8.4-10.2) 05/14/21 04:26 Magnesium 2.30 mg/dL (1.7-2.3) 05/10/21 04:57 Urine Creatinine 100.8 mg/dL (0.1-20.0) H 05/10/21 11:03 Urine Sodium 61 mmol/L 05/05/21 09:57 Urine Total Protein 42 mg/dL (5-11.8) H 05/10/21 11:03 Medications & Allergies - Medications Allergies/Adverse Reactions: Allergies No Known Allergies Allergy (Verified 05/08/21 07:47) Home Medications: Home Medications Medication Instructions Recorded Confirmed Last Taken Type Cefpodoxime Proxetil 200 mg PO Q12H #10 tablet 09/11/20 Unknown Rx Famotidine [Pepcid] 20 mg PO BID #30 tablet 04/13/21 Unknown Rx Losartan [Cozaar] 100 mg PO QDAY #60 tablet 04/13/21 Unknown Rx Metoprolol Xl [Metoprolol 25 mg PO QDAY #30 tablet 04/13/21 Unknown Rx SUCCINATE ER TAB] NIFEdipine XL [Procardia Xl] 60 mg PO Q12HR #60 tablet 04/13/21 Unknown Rx hydrALAZINE [Apresoline TAB] 50 mg PO Q8HR #180 tablet 04/13/21 Unknown Rx Active Medications: Generic Name Dose Route Start Last Admin Trade Name Freq PRN Reason Stop Dose Admin Acetaminophen 650 mg 05/04/21 12:34 05/11/21 11:24 Acetaminophen 325 Mg Tab PO 650 mg Q4H PRN Administration Pain MILD(1-3)/Fever >100.5/MARIA Acetaminophen 650 mg 05/07/21 16:00 05/11/21 16:25 Acetaminophen 650 Mg Rect Supp [place] 650 mg Q4H PRN Administration Pain, Mild (1-3) Aspirin 81 mg 05/06/21 14:00 05/13/21 10:14 Aspirin 81 Mg Tab Chew PO 81 mg QDAY RISHI Administration Atorvastatin Calcium 40 mg 05/09/21 22:00 05/13/21 22:08 Atorvastatin 40 Mg Tab FEEDTUBE Not Given QHS RISHI Chlordiazepoxide HCl 75 mg 05/11/21 15:00 05/14/21 08:43 Chlordiazepoxide 25 Mg Cap PO Not Given Q8H RISHI Dexamethasone 8 mg 05/08/21 12:00 05/13/21 10:15 Dexamethasone 4 Mg/Ml Vial IV 05/17/21 10:01 8 mg Q24HR RISHI Administration Dextrose 0 ml 05/09/21 10:49 05/14/21 06:55 Dextrose 10% *Hypoglycemia IV 250 ml PRN PRN Administration Hypoglycemia Famotidine 20 mg 05/14/21 10:00 Famotidine 20 Mg/2 Ml Inj IV QDAY RISHI Haloperidol Lactate 5 mg 05/09/21 18:32 05/14/21 03:47 Haloperidol Lactate 5 Mg/1 Ml Inj IV 5 mg Q6H PRN Administration Agitation Heparin Sodium (Porcine) 3,000 unit 05/11/21 14:14 Heparin 10,000 Units/10 Ml Vial IV Q6H PRN Anti-Xa Assay < 0.1 units/ml Hydralazine HCl 50 mg 05/04/21 14:00 05/14/21 06:23 Hydralazine 25 Mg Tab PO Not Given Q8HR [facility] Hydralazine HCl 10 mg 05/07/21 16:16 05/14/21 05:49 Hydralazine 20 Mg/1 Ml Inj IV 10 mg Q2H PRN Administration Blood Pressure Hydrophilic Ointment 1 applic 05/05/21 15:21 Lip Therapy Vaseline TP Q2HR PRN Dry Lips Propofol 1,000 mg in 100 mls @ 2.449 mls/hr 05/05/21 16:00 05/09/21 06:16 Diprivan 10 Mg/Ml IV 20 mcg/kg/min TITR RISHI 9.798 mls/hr Administration Protocol 5 MCG/KG/MIN Heparin Sodium/Sodium Chloride 25,000 unit in 500 mls @ 24 mls/hr 05/11/21 15:00 05/13/21 22:07 Heparin/ 0.45% Nacl-25,000 Unit/500 Ml IV 1,450 units/hr TITR RISHI 29 mls/hr Administration Protocol 1,200 UNITS/HR Piperacillin Sod/Tazobactam Sod 3.375 gm in 50 mls @ 100 mls/hr 05/13/21 15:00 05/14/21 08:43 Zosyn/Ns 3.375gm/50ml IV 05/18/21 07:29 100 mls/hr Q8H RISHI Administration Protocol Dextrose/Sodium Chloride 1,000 mls @ 100 mls/hr 05/14/21 01:00 05/14/21 00:59 D5ns IV 100 mls/hr DIRECT RISHI Administration Insulin Human Lispro 0 unit 05/10/21 09:40 05/12/21 16:49 Insulin Lispro 100 Unit/Ml SUB-Q 2 unit Q6HR PRN Administration Hyperglycemia Protocol Metoprolol Tartrate 50 mg 05/10/21 14:00 05/14/21 08:46 Metoprolol Tartrate 50 Mg Tab FEEDTUBE Not Given TID [facility] Multi-Ingred Cream/Lotion/Oil/Oint 1 applic 05/05/21 15:21 Mineral Oil/Petrolatum, White Ophth Oint 3.5 Gm OU Q4HR PRN Dry Eye(s) Ondansetron HCl 4 mg 05/04/21 12:34 05/04/21 21:51 Ondansetron 4 Mg/2 Ml Inj IV 4 mg Q8H PRN Administration Nausea And Vomiting Quetiapine Fumarate 200 mg 05/09/21 22:00 05/13/21 22:08 Quetiapine 200 Mg Tab PO Not Given BID RISHI Senna/Docusate Sodium 1 tab 05/05/21 22:00 05/13/21 22:08 Sennosides/Docusate Sodium 8.6/50 Mg Tab FEEDTUBE Not Given BID RISHI Sodium Chloride 10 ml 05/04/21 22:00 05/13/21 22:08 Sodium Chloride 0.9% 10 Ml Flush Syringe IV 10 ml BID RISHI Administration Sodium Chloride 10 ml 05/04/21 12:34 05/06/21 13:59 Sodium Chloride 0.9% 10 Ml Flush Syringe IV 10 ml PRN PRN Administration LINE FLUSH Sodium Chloride 10 ml 05/09/21 09:46 Sodium Chloride 0.9% 50 Ml Ivpb IV PRN PRN FLUSH
[2021-05-14] MEDS: SENNOSIDES/DOCUSATE SODIUM 8.6/50 MG TAB FEEDTUBE SCH ×2 (09:19→22:49)
[2021-05-14] MEDS: dexAMETHasone 4 MG/ML VIAL IV SCH (09:20)
[2021-05-14] MEDS: QUEtiapine 200 MG TAB PO SCH ×2 (11:26→22:54)
[2021-05-14] MEDS: FAMOTIDINE 20 MG/2 ML INJ IV SCH (11:26)
[2021-05-14] MEDS: ASPIRIN 81 MG TAB CHEW PO SCH (11:26)
--- NOTE | 2021-05-14 11:34 | XRay Report ---
ABDOMEN AP PORTABLE SUPINE 1033 INDICATION: s/p dobhoff insertion COMPARISON: None available. FINDINGS: Feeding tube extends well into the proximal stomach. Signer Name: Vazquez Yañez MD Signed: 05/14/2021 11:30 AM Workstation Name: [id number]
[2021-05-14 12:52] LABS: Calcium 8.7 mg/dL (8.4-10.2)
--- NOTE | 2021-05-14 13:44 | Progress Note ---
Assessment and Plan Acute hypoxic resp failure on MVS COVID positive NSTEMI Acute kidney injury Cardiomyopathy EF 35-40% History of hepatitis C DVT Elevated D-dimer Tobacco abuse Polysubstance abusepatient with positive methamphetamines and has a history of cocaine use Anemia - begin enteral nutrition - replace Potassium per protocol - azotemia improving - continue aspiration precautions - continue Zosyn; de-escalate per ID recommendations - continue Scheduled Librium (resume taper in 24-48 hours re: high CIWA scores acutely) - continue IV Heparin re: DVT - continue to adjust anxiolytics / CIWA protocol - continue care as below otherwise; - Daily SAT and SBT assessment as tolerated - continue to wean supplemental oxygen for target O2 sat's > 90% acutely - VAP bundle addressed - continue lung protective strategies - continue bronchodilators with pulmonary hygiene per RT - wean per pulmonary driven protocols otherwise - avoid nephrotoxins, renally dose all medications - AB's per ID recommendations - continue accuchecks with glycemic control per SSI (While critically ill target blood glucose of 140-180 mg/dL; avoid hypoglycemia) - sedation prn for target RASS 0 to -1 - continue to avoid benzodiazepine's, reduce the possibility of delirium - prn analgesia per CPOT score - Maintenance of sleep-wake cycle, avoid delirium - continue enteral nutritional support at goal rate as tolerated - G.I. & VTE prophylaxis - PT/OT/ROM exercises - continue mobility protocols for pressure ulcer prophylaxis - Monitor hemodynamics closely - continue other care per attending / other consultants - discharge planning ongoing concurrently COVID SPECIFIC INTERVENTIONS - Appears to have incidental COVID infection- Remdesivir not administered secondary to renal failure - continue systemic steroids for severe COVID-19 infection empirically (Dexamethasone) - follow repeat COVID tests results - zinc and vitamin C supplementation - Monitor inflammatory markers per facility protocol - ferritin, Ddimer, CRP - therapeutic anticoagulation per system Protocol based on d-dimer and clinical considerations (on therapeutic heparin for NSTEMI) - Continue contact and airborne isolation .... Re-evaluate in am & prn ......... transfer to [facility] Subjective Date of service: 05/14/21 Principal diagnosis: AHRF; COVID-19 infection; NSTEMI; YE; HFrEF (35-40%); Polysubstance abuse Interval history: Patient is seen today for: Acute hypoxemic Resp failure; COVID-19 infection; NSTEMI; YE; HFrEF (35-40%); Polysubstance abuse; Anemia Seen and examined at bedside; 24hour events reviewed; nursing and respiratory care staff consulted; no adverse overnight events reported to me; resting in bed; remains off MVS; still with delirium; no overt hemodynamic decompensation but still with High CIWA scores Objective Vital Signs - 12hr 05/14/21 05/14/21 05/14/21 02:01 02:40 03:00 Temperature Pulse Rate 83 83 86 Pulse Rate [ From Monitor] Respiratory 24 17 Rate Blood Pressure 160/107 160/107 158/95 O2 Sat by Pulse 91 81 L Oximetry 05/14/21 05/14/21 05/14/21 03:31 04:00 04:01 Temperature 98.7 F Pulse Rate 82 83 Pulse Rate [ 74 From Monitor] Respiratory 14 13 Rate Blood Pressure 155/98 O2 Sat by Pulse 99 95 Oximetry 05/14/21 05/14/21 05/14/21 05:00 05:49 06:00 Temperature Pulse Rate 85 83 84 Pulse Rate [ From Monitor] Respiratory 16 38 H Rate Blood Pressure 173/106 167/113 145/95 O2 Sat by Pulse 97 Oximetry 05/14/21 05/14/21 05/14/21 07:01 08:00 09:01 Temperature 99.2 F Pulse Rate 97 H 88 91 H Pulse Rate [ 92 H From Monitor] Respiratory 19 12 15 Rate Blood Pressure 161/101 176/97 176/97 O2 Sat by Pulse 99 96 90 Oximetry 05/14/21 05/14/21 05/14/21 10:00 11:01 12:00 Temperature 99 F Pulse Rate 87 90 88 Pulse Rate [ 90 From Monitor] Respiratory 41 H 23 22 Rate Blood Pressure 147/96 147/96 O2 Sat by Pulse 94 97 99 Oximetry 05/14/21 05/14/21 05/14/21 12:01 13:00 13:08 Temperature Pulse Rate 91 H 89 89 Pulse Rate [ From Monitor] Respiratory 12 13 Rate Blood Pressure 149/110 170/106 170/106 O2 Sat by Pulse 98 98 Oximetry Constitutional: no acute distress (sedate), other (mildly increased respiratory effort at rest) Eyes: non-icteric ENT: oropharynx moist Neck: supple, no lymphadenopathy, no JVD Effort: normal Ascultation: Bilateral: clear, diminished breath sounds Percussion: Bilateral: not dull Cardiovascular: irregular rhythm, other (S1,S2) Gastrointestinal: normoactive bowel sounds, soft, non-tender, non-distended Integumentary: normal Extremities: no cyanosis, no edema, pulses normal, no ischemia or petechiae Neurologic: non-focal exam, pupils equal and round, CN II-XII normal, motor strength normal and Psychiatric: other (sedated) CBC and BMP: 05/14/21 04:26 05/14/21 12:05 ABG, PT/INR, D-dimer: ABG ABG pH 7.456 pH Units (7.350-7.450) H 05/13/21 11:15 ABG pCO2 36.5 mm Hg 05/13/21 11:15 ABG pO2 106.0 mm Hg (80.0-90.0) H 05/13/21 11:15 ABG O2 Saturation 98.0 % (95.0-99.0) 05/13/21 11:15 PT/INR, D-dimer PT 15.6 Sec. (12.2-14.9) H 05/11/21 14:43 INR 1.12 (0.87-1.13) 05/11/21 14:43 D-Dimer 2730.61 ng/mlDDU (0-234) H 05/12/21 07:19 Abnormal lab findings: Abnormal Labs 05/04/21 05/04/21 05/04/21 07:25 07:25 07:25 WBC 12.9 H RBC 3.04 L Hgb 9.5 L Hct 28.4 L MCV RDW 15.4 H Lymph % (Auto) 11.4 L [place] % (Auto) 10.1 H Lymph # (Auto) [place] # (Auto) 1.3 H Seg Neutrophils % 78.0 H Seg Neutrophils # 10.0 H PT 15.1 H D-Dimer Heparin Anti-Xa Level ABG pH ABG pO2 ABG Base Excess ABG Hemoglobin Sodium 135 L Potassium Chloride Carbon Dioxide BUN 65 H Creatinine 3.4 H Glucose 118 H POC Glucose Calcium Ferritin Total Bilirubin 1.50 H AST 519 H ALT 475 H Lactate Dehydrogenase Total Creatine Kinase Troponin T 1.300 H* C-Reactive Protein Albumin Urine WBC (Auto) Urine Creatinine Urine Total Protein Complement C3 Coronavirus (PCR) Hepatitis C Antibody 01/05/04/21 05/04/21 07:25 08:42 08:42 WBC RBC Hgb Hct MCV RDW Lymph % (Auto) [place] % (Auto) Lymph # (Auto) [place] # (Auto) Seg Neutrophils % Seg Neutrophils # PT D-Dimer 579.49 H Heparin Anti-Xa Level ABG pH ABG pO2 ABG Base Excess ABG Hemoglobin Sodium Potassium Chloride Carbon Dioxide BUN Creatinine Glucose POC Glucose Calcium Ferritin Total Bilirubin AST ALT Lactate Dehydrogenase Total Creatine Kinase 406 H Troponin T 1.230 H* C-Reactive Protein Albumin Urine WBC (Auto) Urine Creatinine Urine Total Protein Complement C3 Coronavirus (PCR) Hepatitis C Antibody 05/04/21 05/04/21 05/04/21 10:13 13:34 18:14 WBC RBC Hgb 8.8 L Hct 26.6 L MCV RDW Lymph % (Auto) [place] % (Auto) Lymph # (Auto) [place] # (Auto) Seg Neutrophils % Seg Neutrophils # PT D-Dimer Heparin Anti-Xa Level < 0.10 L ABG pH ABG pO2 ABG Base Excess ABG Hemoglobin Sodium Potassium Chloride Carbon Dioxide BUN Creatinine Glucose POC Glucose Calcium Ferritin Total Bilirubin AST ALT Lactate Dehydrogenase Total Creatine Kinase Troponin T 1.400 H* C-Reactive Protein Albumin Urine WBC (Auto) Urine Creatinine Urine Total Protein Complement C3 Coronavirus (PCR) Hepatitis C Antibody 05/05/21 05/05/21 05/05/21 03:40 03:40 03:40 WBC RBC Hgb Hct MCV RDW Lymph % (Auto) [place] % (Auto) Lymph # (Auto) [place] # (Auto) Seg Neutrophils % Seg Neutrophils # PT D-Dimer Heparin Anti-Xa Level 0.11 L ABG pH ABG pO2 ABG Base Excess ABG Hemoglobin Sodium Potassium 3.3 L Chloride Carbon Dioxide BUN 59 H Creatinine 2.6 H Glucose 139 H POC Glucose Calcium Ferritin Total Bilirubin AST ALT Lactate Dehydrogenase Total Creatine Kinase Troponin T C-Reactive Protein Albumin Urine WBC (Auto) Urine Creatinine Urine Total Protein Complement C3 Coronavirus (PCR) Hepatitis C Antibody Reactive A 05/05/21 05/05/21 05/05/21 03:40 08:30 09:57 WBC RBC Hgb Hct MCV RDW Lymph % (Auto) [place] % (Auto) Lymph # (Auto) [place] # (Auto) Seg Neutrophils % Seg Neutrophils # PT D-Dimer Heparin Anti-Xa Level ABG pH ABG pO2 ABG Base Excess ABG Hemoglobin Sodium Potassium Chloride Carbon Dioxide BUN Creatinine Glucose POC Glucose Calcium Ferritin Total Bilirubin AST ALT Lactate Dehydrogenase Total Creatine Kinase Troponin T C-Reactive Protein Albumin Urine WBC (Auto) Urine Creatinine 100.8 H Urine Total Protein Complement C3 72 L Coronavirus (PCR) Positive A Hepatitis C Antibody 05/05/21 05/05/21 05/05/21 11:28 17:00 19:51 WBC RBC Hgb Hct MCV RDW Lymph % (Auto) [place] % (Auto) Lymph # (Auto) [place] # (Auto) Seg Neutrophils % Seg Neutrophils # PT D-Dimer Heparin Anti-Xa Level 0.10 L 0.22 L ABG pH 7.304 L ABG pO2 140.8 H ABG Base Excess -2.1 L ABG Hemoglobin 10.2 L Sodium Potassium Chloride Carbon Dioxide BUN Creatinine Glucose POC Glucose Calcium Ferritin Total Bilirubin AST ALT Lactate Dehydrogenase Total Creatine Kinase Troponin T C-Reactive Protein Albumin Urine WBC (Auto) Urine Creatinine Urine Total Protein Complement C3 Coronavirus (PCR) Hepatitis C Antibody 05/06/21 05/06/21 05/06/21 03:47 06:15 17:53 WBC RBC Hgb 9.0 L Hct 27.8 L MCV RDW Lymph % (Auto) [place] % (Auto) Lymph # (Auto) [place] # (Auto) Seg Neutrophils % Seg Neutrophils # PT D-Dimer Heparin Anti-Xa Level 0.10 L ABG pH ABG pO2 143.5 H ABG Base Excess -2.4 L ABG Hemoglobin 6.9 L Sodium Potassium Chloride Carbon Dioxide BUN Creatinine Glucose POC Glucose Calcium Ferritin Total Bilirubin AST ALT Lactate Dehydrogenase Total Creatine Kinase Troponin T C-Reactive Protein Albumin Urine WBC (Auto) Urine Creatinine Urine Total Protein Complement C3 Coronavirus (PCR) Hepatitis C Antibody 05/07/21 05/07/21 05/07/21 00:07 03:22 03:45 WBC RBC Hgb Hct MCV RDW Lymph % (Auto) [place] % (Auto) Lymph # (Auto) [place] # (Auto) Seg Neutrophils % Seg Neutrophils # PT D-Dimer Heparin Anti-Xa Level < 0.10 L ABG pH ABG pO2 104.3 H ABG Base Excess -2.6 L ABG Hemoglobin 9.1 L Sodium Potassium Chloride 107.1 H Carbon Dioxide 20 L BUN 56 H Creatinine 2.9 H Glucose POC Glucose Calcium Ferritin Total Bilirubin AST ALT Lactate Dehydrogenase Total Creatine Kinase Troponin T C-Reactive Protein Albumin Urine WBC (Auto) Urine Creatinine Urine Total Protein Complement C3 Coronavirus (PCR) Hepatitis C Antibody 05/07/21 05/07/21 05/07/21 07:44 16:28 22:41 WBC RBC Hgb Hct MCV RDW Lymph % (Auto) [place] % (Auto) Lymph # (Auto) [place] # (Auto) Seg Neutrophils % Seg Neutrophils # PT D-Dimer Heparin Anti-Xa Level < 0.10 L 0.10 L < 0.10 L ABG pH ABG pO2 ABG Base Excess ABG Hemoglobin Sodium Potassium Chloride Carbon Dioxide BUN Creatinine Glucose POC Glucose Calcium Ferritin Total Bilirubin AST ALT Lactate Dehydrogenase Total Creatine Kinase Troponin T C-Reactive Protein Albumin Urine WBC (Auto) Urine Creatinine Urine Total Protein Complement C3 Coronavirus (PCR) Hepatitis C Antibody 05/08/21 05/08/21 05/08/21 03:25 04:34 07:30 WBC 12.4 H RBC 3.02 L Hgb 9.5 L Hct 29.2 L MCV 97 H RDW 16.7 H Lymph % (Auto) 8.1 L [place] % (Auto) 11.0 H Lymph # (Auto) 1.0 L [place] # (Auto) 1.4 H Seg Neutrophils % 80.1 H Seg Neutrophils # 9.9 H PT D-Dimer Heparin Anti-Xa Level ABG pH ABG pO2 139.0 H ABG Base Excess ABG Hemoglobin 8.8 L Sodium Potassium Chloride 110.5 H Carbon Dioxide BUN 59 H Creatinine 2.8 H Glucose 103 H POC Glucose Calcium Ferritin Total Bilirubin AST ALT 327 H Lactate Dehydrogenase Total Creatine Kinase Troponin T C-Reactive Protein Albumin 3.1 L Urine WBC (Auto) Urine Creatinine Urine Total Protein Complement C3 Coronavirus (PCR) Hepatitis C Antibody 05/09/21 05/09/21 05/09/21 04:10 04:20 04:20 WBC 11.7 H RBC 2.79 L Hgb 8.7 L Hct 26.5 L MCV 95 H RDW 16.2 H Lymph % (Auto) [place] % (Auto) Lymph # (Auto) [place] # (Auto) Seg Neutrophils % Seg Neutrophils # PT D-Dimer Heparin Anti-Xa Level ABG pH ABG pO2 161.6 H ABG Base Excess ABG Hemoglobin 8.3 L Sodium 151 H Potassium Chloride 114.5 H Carbon Dioxide 21 L BUN 57 H Creatinine 2.4 H Glucose POC Glucose Calcium Ferritin Total Bilirubin AST ALT 210 H Lactate Dehydrogenase Total Creatine Kinase Troponin T C-Reactive Protein Albumin 2.9 L Urine WBC (Auto) Urine Creatinine Urine Total Protein Complement C3 Coronavirus (PCR) Hepatitis C Antibody 05/09/21 05/09/21 05/09/21 09:48 09:48 13:22 WBC 11.6 H RBC 3.00 L Hgb 9.0 L Hct 28.4 L MCV RDW 15.9 H Lymph % (Auto) 5.9 L [place] % (Auto) 8.9 H Lymph # (Auto) 0.7 L [place] # (Auto) 1.0 H Seg Neutrophils % 84.3 H Seg Neutrophils # 9.8 H PT D-Dimer Heparin Anti-Xa Level ABG pH ABG pO2 ABG Base Excess ABG Hemoglobin Sodium Potassium Chloride Carbon Dioxide BUN Creatinine Glucose POC Glucose Calcium Ferritin Total Bilirubin AST ALT Lactate Dehydrogenase Total Creatine Kinase Troponin T C-Reactive Protein 8.70 H Albumin Urine WBC (Auto) 25.0 H Urine Creatinine Urine Total Protein Complement C3 Coronavirus (PCR) Hepatitis C Antibody 05/09/21 05/09/21 05/10/21 15:20 18:16 04:57 WBC RBC 2.87 L Hgb 8.8 L Hct 27.0 L MCV RDW 15.9 H Lymph % (Auto) [place] % (Auto) Lymph # (Auto) [place] # (Auto) Seg Neutrophils % Seg Neutrophils # PT D-Dimer Heparin Anti-Xa Level ABG pH ABG pO2 102.0 H ABG Base Excess -2.8 L ABG Hemoglobin 9.0 L Sodium Potassium Chloride Carbon Dioxide BUN Creatinine Glucose POC Glucose 130 H Calcium Ferritin Total Bilirubin AST ALT Lactate Dehydrogenase Total Creatine Kinase Troponin T C-Reactive Protein Albumin Urine WBC (Auto) Urine Creatinine Urine Total Protein Complement C3 Coronavirus (PCR) Hepatitis C Antibody 05/10/21 05/10/21 05/10/21 04:57 04:57 04:57 WBC RBC Hgb Hct MCV RDW Lymph % (Auto) [place] % (Auto) Lymph # (Auto) [place] # (Auto) Seg Neutrophils % Seg Neutrophils # PT D-Dimer 1546.78 H Heparin Anti-Xa Level ABG pH ABG pO2 ABG Base Excess ABG Hemoglobin Sodium 148 H Potassium Chloride 114.9 H Carbon Dioxide 21 L BUN 57 H Creatinine 2.3 H Glucose 157 H POC Glucose Calcium Ferritin 888.2 H Total Bilirubin AST ALT Lactate Dehydrogenase 289 H Total Creatine Kinase Troponin T C-Reactive Protein 6.80 H Albumin Urine WBC (Auto) Urine Creatinine Urine Total Protein Complement C3 Coronavirus (PCR) Hepatitis C Antibody 05/10/21 05/10/21 05/10/21 05:09 08:04 11:03 WBC RBC Hgb Hct MCV RDW Lymph % (Auto) [place] % (Auto) Lymph # (Auto) [place] # (Auto) Seg Neutrophils % Seg Neutrophils # PT D-Dimer Heparin Anti-Xa Level ABG pH 7.473 H ABG pO2 114.6 H ABG Base Excess ABG Hemoglobin 9.5 L Sodium Potassium Chloride Carbon Dioxide BUN Creatinine Glucose POC Glucose 152 H Calcium Ferritin Total Bilirubin AST ALT Lactate Dehydrogenase Total Creatine Kinase Troponin T C-Reactive Protein Albumin Urine WBC (Auto) Urine Creatinine 100.8 H Urine Total Protein 42 H Complement C3 Coronavirus (PCR) Hepatitis C Antibody 05/10/21 05/10/21 05/10/21 13:07 18:01 23:31 WBC RBC Hgb Hct MCV RDW Lymph % (Auto) [place] % (Auto) Lymph # (Auto) [place] # (Auto) Seg Neutrophils % Seg Neutrophils # PT D-Dimer Heparin Anti-Xa Level ABG pH ABG pO2 ABG Base Excess ABG Hemoglobin Sodium Potassium Chloride Carbon Dioxide BUN Creatinine Glucose POC Glucose 150 H 189 H 142 H Calcium Ferritin Total Bilirubin AST ALT Lactate Dehydrogenase Total Creatine Kinase Troponin T C-Reactive Protein Albumin Urine WBC (Auto) Urine Creatinine Urine Total Protein Complement C3 Coronavirus (PCR) Hepatitis C Antibody 05/10/21 05/11/21 05/11/21 Unknown 05:25 06:53 WBC RBC Hgb Hct MCV RDW Lymph % (Auto) [place] % (Auto) Lymph # (Auto) [place] # (Auto) Seg Neutrophils % Seg Neutrophils # PT D-Dimer Heparin Anti-Xa Level ABG pH ABG pO2 126.6 H ABG Base Excess ABG Hemoglobin 9.2 L Sodium 150 H Potassium Chloride 116.6 H Carbon Dioxide 21 L BUN 62 H Creatinine 2.5 H Glucose 142 H POC Glucose 163 H Calcium Ferritin Total Bilirubin AST ALT Lactate Dehydrogenase Total Creatine Kinase Troponin T C-Reactive Protein Albumin Urine WBC (Auto) Urine Creatinine Urine Total Protein Complement C3 Coronavirus (PCR) Hepatitis C Antibody 05/11/21 05/11/21 05/11/21 06:53 11:06 13:51 WBC RBC 3.07 L Hgb 9.3 L Hct 29.0 L MCV 95 H RDW 16.1 H Lymph % (Auto) [place] % (Auto) Lymph # (Auto) [place] # (Auto) Seg Neutrophils % Seg Neutrophils # PT D-Dimer Heparin Anti-Xa Level ABG pH ABG pO2 74.9 L ABG Base Excess -3.3 L ABG Hemoglobin 10.8 L Sodium Potassium Chloride Carbon Dioxide BUN Creatinine Glucose POC Glucose 145 H Calcium Ferritin Total Bilirubin AST ALT Lactate Dehydrogenase Total Creatine Kinase Troponin T C-Reactive Protein Albumin Urine WBC (Auto) Urine Creatinine Urine Total Protein Complement C3 Coronavirus (PCR) Hepatitis C Antibody 05/11/21 05/11/21 05/11/21 14:43 14:43 15:47 WBC RBC Hgb 9.2 L Hct 29.7 L MCV RDW Lymph % (Auto) [place] % (Auto) Lymph # (Auto) [place] # (Auto) Seg Neutrophils % Seg Neutrophils # PT 15.6 H D-Dimer Heparin Anti-Xa Level ABG pH ABG pO2 ABG Base Excess ABG Hemoglobin Sodium Potassium Chloride Carbon Dioxide BUN Creatinine Glucose POC Glucose 137 H Calcium Ferritin Total Bilirubin AST ALT Lactate Dehydrogenase Total Creatine Kinase Troponin T C-Reactive Protein Albumin Urine WBC (Auto) Urine Creatinine Urine Total Protein Complement C3 Coronavirus (PCR) Hepatitis C Antibody 05/12/21 05/12/21 05/12/21 00:04 05:07 07:19 WBC 11.9 H RBC 3.00 L Hgb 9.1 L Hct 28.9 L MCV 96 H RDW 16.7 H Lymph % (Auto) 11.5 L [place] % (Auto) 8.2 H Lymph # (Auto) [place] # (Auto) 1.0 H Seg Neutrophils % 80.0 H Seg Neutrophils # 9.6 H PT D-Dimer Heparin Anti-Xa Level ABG pH ABG pO2 ABG Base Excess ABG Hemoglobin Sodium Potassium Chloride Carbon Dioxide BUN Creatinine Glucose POC Glucose 121 H 117 H Calcium Ferritin Total Bilirubin AST ALT Lactate Dehydrogenase Total Creatine Kinase Troponin T C-Reactive Protein Albumin Urine WBC (Auto) Urine Creatinine Urine Total Protein Complement C3 Coronavirus (PCR) Hepatitis C Antibody 05/12/21 05/12/21 05/12/21 07:19 07:19 07:19 WBC RBC Hgb Hct MCV RDW Lymph % (Auto) [place] % (Auto) Lymph # (Auto) [place] # (Auto) Seg Neutrophils % Seg Neutrophils # PT D-Dimer 2730.61 H Heparin Anti-Xa Level ABG pH ABG pO2 ABG Base Excess ABG Hemoglobin Sodium 146 H Potassium 5.1 H Chloride 112.4 H Carbon Dioxide 21 L BUN 61 H Creatinine 2.2 H Glucose 136 H POC Glucose Calcium 8.1 L Ferritin 640.2 H Total Bilirubin AST ALT Lactate Dehydrogenase 314 H Total Creatine Kinase Troponin T C-Reactive Protein 1.60 H Albumin Urine WBC (Auto) Urine Creatinine Urine Total Protein Complement C3 Coronavirus (PCR) Hepatitis C Antibody 05/12/21 05/12/21 05/12/21 11:10 16:10 16:38 WBC RBC Hgb Hct MCV RDW Lymph % (Auto) [place] % (Auto) Lymph # (Auto) [place] # (Auto) Seg Neutrophils % Seg Neutrophils # PT D-Dimer Heparin Anti-Xa Level 0.20 L ABG pH ABG pO2 ABG Base Excess ABG Hemoglobin Sodium Potassium Chloride Carbon Dioxide BUN Creatinine Glucose POC Glucose 131 H 157 H Calcium Ferritin Total Bilirubin AST ALT Lactate Dehydrogenase Total Creatine Kinase Troponin T C-Reactive Protein Albumin Urine WBC (Auto) Urine Creatinine Urine Total Protein Complement C3 Coronavirus (PCR) Hepatitis C Antibody 05/12/21 05/13/21 05/13/21 23:30 00:12 04:20 WBC RBC Hgb Hct MCV RDW Lymph % (Auto) [place] % (Auto) Lymph # (Auto) [place] # (Auto) Seg Neutrophils % Seg Neutrophils # PT D-Dimer Heparin Anti-Xa Level 0.13 L ABG pH ABG pO2 ABG Base Excess ABG Hemoglobin Sodium Potassium Chloride 111.2 H Carbon Dioxide BUN 53 H Creatinine 1.9 H Glucose 121 H POC Glucose 115 H Calcium 8.3 L Ferritin Total Bilirubin AST ALT Lactate Dehydrogenase Total Creatine Kinase Troponin T C-Reactive Protein Albumin Urine WBC (Auto) Urine Creatinine Urine Total Protein Complement C3 Coronavirus (PCR) Hepatitis C Antibody 05/13/21 05/13/21 05/13/21 04:20 11:15 11:29 WBC 13.1 H RBC 2.86 L Hgb 8.5 L Hct 26.9 L MCV RDW 15.7 H Lymph % (Auto) [place] % (Auto) Lymph # (Auto) [place] # (Auto) Seg Neutrophils % Seg Neutrophils # PT D-Dimer Heparin Anti-Xa Level ABG pH 7.456 H ABG pO2 106.0 H ABG Base Excess ABG Hemoglobin 7.1 L Sodium Potassium Chloride Carbon Dioxide BUN Creatinine Glucose POC Glucose 121 H Calcium Ferritin Total Bilirubin AST ALT Lactate Dehydrogenase Total Creatine Kinase Troponin T C-Reactive Protein Albumin Urine WBC (Auto) Urine Creatinine Urine Total Protein Complement C3 Coronavirus (PCR) Hepatitis C Antibody 05/13/21 05/13/21 05/14/21 16:38 23:43 04:26 WBC 14.2 H RBC 3.11 L Hgb 9.4 L Hct 29.3 L MCV RDW 15.4 H Lymph % (Auto) [place] % (Auto) Lymph # (Auto) [place] # (Auto) Seg Neutrophils % Seg Neutrophils # PT D-Dimer Heparin Anti-Xa Level ABG pH ABG pO2 ABG Base Excess ABG Hemoglobin Sodium Potassium Chloride Carbon Dioxide BUN Creatinine Glucose POC Glucose 119 H 55 L Calcium Ferritin Total Bilirubin AST ALT Lactate Dehydrogenase Total Creatine Kinase Troponin T C-Reactive Protein Albumin Urine WBC (Auto) Urine Creatinine Urine Total Protein Complement C3 Coronavirus (PCR) Hepatitis C Antibody 05/14/21 05/14/21 05/14/21 04:26 05:26 06:51 WBC RBC Hgb Hct MCV RDW Lymph % (Auto) [place] % (Auto) Lymph # (Auto) [place] # (Auto) Seg Neutrophils % Seg Neutrophils # PT D-Dimer Heparin Anti-Xa Level ABG pH ABG pO2 ABG Base Excess ABG Hemoglobin Sodium Potassium 3.4 L Chloride 107.6 H Carbon Dioxide BUN 42 H Creatinine 1.9 H Glucose POC Glucose 51 L 62 L Calcium Ferritin Total Bilirubin AST ALT Lactate Dehydrogenase Total Creatine Kinase Troponin T C-Reactive Protein Albumin Urine WBC (Auto) Urine Creatinine Urine Total Protein Complement C3 Coronavirus (PCR) Hepatitis C Antibody 05/14/21 05/14/21 05/14/21 09:58 12:05 12:08 WBC RBC Hgb Hct MCV RDW Lymph % (Auto) [place] % (Auto) Lymph # (Auto) [place] # (Auto) Seg Neutrophils % Seg Neutrophils # PT D-Dimer Heparin Anti-Xa Level ABG pH ABG pO2 ABG Base Excess ABG Hemoglobin Sodium Potassium 3.4 L Chloride Carbon Dioxide BUN 36 H Creatinine 1.8 H Glucose 133 H POC Glucose 60 L 127 H Calcium Ferritin Total Bilirubin AST ALT Lactate Dehydrogenase Total Creatine Kinase Troponin T C-Reactive Protein Albumin Urine WBC (Auto) Urine Creatinine Urine Total Protein Complement C3 Coronavirus (PCR) Hepatitis C Antibody Allied health notes reviewed: nursing
[2021-05-14] MEDS: HEPARIN/ 0.45% NACL DRIP 25,000 UNIT/500 ML BAG IV SCH (15:15)
[2021-05-15] MEDS: D5W/0.9% NACL 1,000 ML IV SCH ×2 (01:51→14:38)
[2021-05-15] MEDS: hydrALAZINE 20 MG/1 ML INJ IV PRN ×3 (03:15→20:18)
[2021-05-15] MEDS: HALOPERIDOL LACTATE 5 MG/1 ML INJ IV PRN ×2 (03:15→20:18)
[2021-05-15] MEDS: FREE WATER PO SCH ×5 (06:10→17:40)
[2021-05-15] MEDS: hydrALAZINE 25 MG TAB PO SCH ×3 (06:26→21:44)
[2021-05-15] MEDS: chlordiazePOXIDE 25 MG CAP PO SCH ×3 (06:27→22:19)
[2021-05-15] MEDS: PIPERACILLIN/TAZOBACTAM 3.375 3.375 GM/50 ML BAG IV SCH ×3 (06:28→22:18)
--- NOTE | 2021-05-15 07:54 | Progress Note ---
Assessment and Plan Assessment and plan: Interval history: This is a 56-year-old male with a nicotine abuse, A. fib, hypertension, and chronic medication noncompliance and homelessness who presented to emergency department on 05/04 with complaints of dyspnea on exertion for the past month worsening over the past 3 days, intermittent left-sided chest tightness with activity, and persistent cough without fever. Work-up in the emergency department revealed anemia, hyponatremia, elevated BUN/creatinine and transaminitis. Patient was admitted to the hospitalist service with acute kidney injury and accelerated hypertension. Hospital course to date 05/04/2021. Cardiology was considering patient for [facility]. However, patient with elevated creatinine therefore will hold off on cath evaluation. Nephrology consultation for acute kidney injury. Etiology likely secondary to vasomotor nephropathy/dehydration. We will start IV fluid hydration. Check renal ultrasound to rule out obstructive uropathy. We will resume home medications for the accelerated hypertension 05/05/2021. Echocardiogram reveals EF 35-40% with moderate concentric left ventricular hypertrophy. Moderate global hypokinesis of left ventricle. Mild mitral regurgitation. Mild pulmonary hypertension. Troponins are believed to be elevated in the setting of acute kidney injury. No beta-blockers due to cocaine use continue heparin and nitro drip. Continue CIWA protocol. Await urine studies 05/06/2021. Patient decompensated yesterday with worsening respiratory failure and difficulty to protect airway. Patient was breathing sonorously, and hypoxic. Patient was intubated and currently is on mechanical ventilation. Patient with AC mode ventilation rate of 20, tidal volume 450, FiO2 40% and PEEP of 6. COVID PCR testing on 05/05/2021 was found to be positive. Echocardiogram completed on this admission shows worsening EF from August 2020. Echocardiogram now reveals moderate concentric left ventricular hypertrophy with moderate global hypokinesis and EF of 35-40%. Mild pulmonary hypertension. 05/08: Continue current management, renal stable, LFTs stable and if improved will start on statin therapy. 05/09: Patient is febrile, will panculture, PSV today. CRP pending. Mucoid discharge noted from meatus which was sent for culture. Hypernatremia persists, free water flushes increased 05/10: PSV trial per [facility], T-max 102.3, given mildly elevated procalcitonin started on ceftriaxone 2 g every 24 for 2 days per ID. Overnight patient had atrial fibrillation which was treated with Cardizem drip and converted to sinus rhythm. Metoprolol p.o. increased to 3 times daily. 05/11: Patient still running fevers and if still febrile tomorrow will escalate to cefepime per ID as he is currently on ceftriaxone, [facility] attempted PSV but patient became agitated and was switched back to pressure control. Lower extremity ultrasound shows acute DVT and started on heparin drip. Started on scheduled Librium. Patient remains with hypernatremia and elevated creatinine and on IV fluids. Free water flushes adjusted. Started on vancomycin today 05/12: Patient placed on pressure support trial without fentanyl, hypernatremia improving, hyperkalemia noted. Slight improvement to renal function. 05/13: Patient was extubated today, ID change antibiotics to Zosyn for Enterococcus, was started tapering Librium in the morning, renal function slightly improved. Possible transfer to floor tomorrow. ST evaluation for swallow ordered. 05/14: Patient became hypoglycemic overnight and started on dextrose IV fluids. Accu-Chek fingersticks have been low but on a.m. BMP patient blood glucose is 100. Other BMP pending. Feeding tube replaced due to need for enteral access and patient being severely confused. Renal functions remains the same. Upon confirmation will restart tube feedings, p.o. medications and free water flushes. 05/15: Remains confused/somnolent on my encounter. [facility] Remains hypertensive. Added amlodipine 10 mg NG and labetalol prn. ST eval today but doubt he will participate. Potassium replaced. Renal function improving overall, however, hypernatremic. Inc TF FWF to 250 cc q4hr. A/P Acute hypoxic respiratory failure -[facility] consulted, appreciate recommendations -Intubated on 05/05 with 7.50 ETT at 20 over the lips in the ED and extubated 05/13 -Supplemental Oxygenation as needed -Pulm hygiene -Continues SPO2 monitoring -Pulmonary perfusion study showed low probability of pulmonary embolism Severe COVID-19 pneumonia/leukocytosis, Enterococcus in urine -Infectious disease consulted, appreciate recommendations -COVID-19 PCR positive -Continue droplet/precautions -Not a candidate for remdesivir given acute kidney injury -Dexamethasone for 10 days -Anticoagulation per hospital protocol -Trend COVID-19 from 2 markers (ferritin, D-dimer, CRP, LDH) -Vanco d/t Enterococcus in urine, ceftriaxone (05/10-05/13) -changed to zosyn per ID -Follow-up for speciation -GC negative Acute DVT -Bilateral lower extremity Doppler ultrasound shows acute DVT -Heparin drip -No bolus -adjust per protocol Acute kidney injury likely secondary to vasomotor nephropathy -Nephrology consulted, appreciate recommendations -s/p IVF -Avoid nephrotoxic medications -Renally dose medication -Strict intake and output -FeNa indicates prerenal -Renal ultrasound completed: 1.7 hyper echoic mass within the left upper pole -Monitor follow-up with CT once stable Hypernatremia (resolved), hyperchloremia, metabolic acidosis (resolved) -s/p MIVF with half-normal saline -Trend sodium -Free water flush Metabolic encephalopathy -s/p fentanyl drip -Librium and Seroquel -Maintain sleep-wake cycle -Monitor QTC -Avoid delirium -Bilateral restraints in place for safety -May need psych consult S/p hypertensive emergency, h/o HTN -Continue BB -Blood pressure monitoring per protocol -Resume home antihypertensive regimen as tolerated Heart failure reduced EF, cardiomyopathy, NSTEMI, paroxysmal atrial fibrillation -Continue beta-sylvia and aspirin -Resume statin therapy -Cardiology consulted, appreciate recommendations -Echo 05/04/2021-EF 35 to 40%. Moderate concentric LVH. Moderate global hypokinesis of left ventricle. Mild mitral regurgitation. Mild pulmonary hypertension. Echocardiogram reviewed (08/27/2020): LVEF is 50 to 55%. Mild to moderate concentric LVF. Severe diastolic dysfunction is present (restrictive filling). Right ventricle is mildly hypokinetic. RVSP is 48 mmHg. No valvular abnormalities. -S/p heparin drip for 24 hours -Patient had atrial fibrillation overnight on 05/10 and was treated with a Cardizem drip -Beta-sylvia increased Polysubstance abuse, tobacco abuse -UDS positive for amphetamines -We will need cessation counseling when appropriate Transaminitis, h/o hepatitis C -Renal ultrasound showed incidental finding of cholelithiasis -Trend LFTs -Continue supportive management Anemia -Trend CBC -Transfuse for hemoglobin less than 7 DVT/ GI prophylaxis -Heparin gtt -PPI The high probability of a clinically significant, sudden or life threatening deterioration of the [cardio/resp] system(s) required my full and direct attention, intervention and personal management. The aggregate critical care time was [60] minutes. This time is in addition to time spent performing reported procedures but includes the following: [x] Data Review and interpretation [x] Patient assessment and monitoring of vital signs [x] Documentation [x] Medication orders and management Disposition Plan: IMCU Total Time Spent with Patient (Minutes): 60 History Interval history: No distress on my encounter. Very somnolent on my encounter. Is protecting airway. Elevated BP on bedside monitor.. Hospitalist Physical - Constitutional Vitals: Temp Pulse Resp BP Pulse Ox 99.0 F 81 29 H 164/112 94 05/15/21 04:00 05/15/21 06:26 05/15/21 06:00 05/15/21 06:26 05/15/21 07:44 General appearance: Present: mild distress HEART Score - HEART Score EKG: Non-specific Age: 45-65 Risk factors: 1-2 risk factors Troponin: Troponin T 1.400 ng/mL (0.00-0.029) H* 05/04/21 13:34 Troponin: 1-3x normal limit - Critical Actions Critical Actions: 4-6 pts:12-16.6% risk of adverse cardiac event. Should be admitted Results - Labs CBC & Chem 7: 05/15/21 07:26 05/15/21 07:26 Labs: Laboratory Last Values WBC 14.2 K/mm3 (4.5-11.0) H 05/14/21 04:26 RBC 3.11 M/mm3 (3.65-5.03) L 05/14/21 04:26 Hgb 9.4 gm/dl (11.8-15.2) L 05/14/21 04:26 Hct 29.3 % (35.5-45.6) L 05/14/21 04:26 MCV 94 fl (84-94) 05/14/21 04:26 MCH 30 pg (28-32) 05/14/21 04:26 MCHC 32 % (32-34) 05/14/21 04:26 RDW 15.4 % (13.2-15.2) H 05/14/21 04:26 Plt Count 239 K/mm3 (140-440) 05/14/21 04:26 Lymph % (Auto) 11.5 % (13.4-35.0) L 05/12/21 07:19 [place] % (Auto) 8.2 % (0.0-7.3) H 05/12/21 07:19 Eos % (Auto) 0.1 % (0.0-4.3) 05/12/21 07:19 Baso % (Auto) 0.2 % (0.0-1.8) 05/12/21 07:19 Lymph # (Auto) 1.4 K/mm3 (1.2-5.4) 05/12/21 07:19 [place] # (Auto) 1.0 K/mm3 (0.0-0.8) H 05/12/21 07:19 Eos # (Auto) 0.0 K/mm3 (0.0-0.4) 05/12/21 07:19 Baso # (Auto) 0.0 K/mm3 (0.0-0.1) 05/12/21 07:19 Seg Neutrophils % 80.0 % (40.0-70.0) H 05/12/21 07:19 Seg Neutrophils # 9.6 K/mm3 (1.8-7.7) H 05/12/21 07:19 PT 15.6 Sec. (12.2-14.9) H 05/11/21 14:43 INR 1.12 (0.87-1.13) 05/11/21 14:43 APTT 30.3 Sec. (24.2-36.6) 05/11/21 14:43 D-Dimer 2730.61 ng/mlDDU (0-234) H 05/12/21 07:19 Heparin Anti-Xa Level 0.42 U.I./ml (0.3-0.7) 05/14/21 04:26 ABG pH 7.456 pH Units (7.350-7.450) H 05/13/21 11:15 ABG pCO2 36.5 mm Hg 05/13/21 11:15 ABG pO2 106.0 mm Hg (80.0-90.0) H 05/13/21 11:15 ABG HCO3 25.2 mmol/L (20.0-26.0) 05/13/21 11:15 ABG O2 Saturation 98.0 % (95.0-99.0) 05/13/21 11:15 ABG O2 Content 9.8 (0.0-44) 05/13/21 11:15 ABG Base Excess 1.2 mmol/L (-2.0-3.0) 05/13/21 11:15 ABG Hemoglobin 7.1 gm/dl (14.0-18.0) L 05/13/21 11:15 ABG Carboxyhemoglobin 1.7 % (0.0-5.0) 05/13/21 11:15 ABG Methemoglobin 0.5 % (0.0-1.5) 05/13/21 11:15 Oxyhemoglobin 95.9 % (95.0-99.0) 05/13/21 11:15 FiO2 30 % 05/13/21 11:15 Sodium 137 mmol/L (137-145) 05/14/21 12:05 Potassium 3.4 mmol/L (3.6-5.0) L 05/14/21 12:05 Chloride 104.2 mmol/L (98-107) 05/14/21 12:05 Carbon Dioxide 24 mmol/L (22-30) 05/14/21 12:05 Anion Gap 12 mmol/L 05/14/21 12:05 BUN 36 mg/dL (9-20) H 05/14/21 12:05 Creatinine 1.8 mg/dL (0.8-1.3) H 05/14/21 12:05 Estimated GFR 39 ml/min 05/14/21 12:05 BUN/Creatinine Ratio 20 % 05/14/21 12:05 Glucose 133 mg/dL (75-100) H 05/14/21 12:05 POC Glucose 119 mg/dL (70-105) H 05/15/21 05:34 Calcium 8.7 mg/dL (8.4-10.2) 05/14/21 12:05 Phosphorus 4.00 mg/dL (2.5-4.5) 05/14/21 15:44 Magnesium 2.00 mg/dL (1.7-2.3) 05/14/21 15:44 Ferritin 640.2 ng/mL (30.0-300.0) H 05/12/21 07:19 Total Bilirubin 0.60 mg/dL (0.1-1.2) 05/09/21 04:20 AST 20 units/L (5-40) 05/09/21 04:20 ALT 210 units/L (7-56) H 05/09/21 04:20 Alkaline Phosphatase 58 units/L (35-129) 05/09/21 04:20 Lactate Dehydrogenase 314 units/L (91-180) H 05/12/21 07:19 Total Creatine Kinase 406 units/L (55-170) H 05/04/21 08:42 Troponin T 1.400 ng/mL (0.00-0.029) H* 05/04/21 13:34 C-Reactive Protein 1.60 mg/dL (0.00-1.30) H 05/12/21 07:19 Total Protein 6.3 g/dL (6.3-8.2) 05/09/21 04:20 Albumin 2.9 g/dL (3.9-5) L 05/09/21 04:20 Albumin/Globulin Ratio 0.9 % 05/09/21 04:20 Triglycerides 144 mg/dL (2-149) 05/10/21 04:57 Cholesterol 140 mg/dL (50-199) 05/04/21 07:25 LDL Cholesterol Direct 89 mg/dL (50-130) 05/04/21 07:25 HDL Cholesterol 48 mg/dL (40-59) 05/04/21 07:25 Cholesterol/HDL Ratio 2.91 % 05/04/21 07:25 Procalcitonin 0.63 ng/mL (<0.15) 05/09/21 15:53 Urine Color Yellow (Yellow) 05/09/21 13:22 Urine Turbidity Turbid (Clear) 05/09/21 13:22 Urine pH 5.0 (5.0-7.0) 05/09/21 13:22 Ur Specific [place] 1.018 (1.003-1.030) 05/09/21 13:22 Urine Protein 100 mg/dl mg/dL (Negative) 05/09/21 13:22 Urine Glucose (UA) Neg mg/dL (Negative) 05/09/21 13:22 Urine Ketones Tr mg/dL (Negative) 05/09/21 13:22 Urine Blood Mod (Negative) 05/09/21 13:22 Urine Nitrite Neg (Negative) 05/09/21 13:22 Urine Bilirubin Neg (Negative) 05/09/21 13:22 Urine Urobilinogen < 2.0 mg/dL (<2.0) 05/09/21 13:22 Ur Leukocyte Esterase Mod (Negative) 05/09/21 13:22 Urine WBC (Auto) 25.0 /HPF (0.0-6.0) H 05/09/21 13:22 Urine RBC (Auto) 8.0 /HPF (0.0-6.0) 05/09/21 13:22 U Epithel Cells (Auto) < 1.0 /HPF (0-13.0) 05/09/21 13:22 Urine Bacteria (Auto) 1+ /HPF (Negative) 05/09/21 00:40 Uric Acid Crystals Few 05/09/21 00:40 Triple Phos Crystals 2+ 05/09/21 13:22 Amorphous Crystals Few 05/09/21 00:40 Urine Mucus Few /HPF 05/09/21 00:40 Urine Creatinine 100.8 mg/dL (0.1-20.0) H 05/10/21 11:03 Protein/Creatinin Ratio 0.42 05/10/21 11:03 Urine Sodium 61 mmol/L 05/05/21 09:57 Urine Total Protein 42 mg/dL (5-11.8) H 05/10/21 11:03 Urine Opiates Screen Negative 05/04/21 Unknown Urine Methadone Screen Negative 05/04/21 Unknown Ur Barbiturates Screen Negative 05/04/21 Unknown Ur Phencyclidine Scrn Negative 05/04/21 Unknown Ur Amphetamines Screen Positive 05/04/21 Unknown U Benzodiazepines Scrn Negative 05/04/21 Unknown Urine Cocaine Screen Negative 05/04/21 Unknown U Marijuana (THC) Screen Negative 05/04/21 Unknown Drugs of Abuse Note Disclamer 05/04/21 Unknown Immunofix Electrophor see below 05/05/21 03:40 AUDRA Screen Negative (Negative) 05/05/21 03:40 Proteinase 3 (PR3) Ab <1.0 AI (<1.0) 05/05/21 03:40 Myeloperoxidase Ab <1.0 AI (<1.0) 05/05/21 03:40 Complement C3 72 mg/dL (82-185) L 05/05/21 03:40 Complement C4 17 mg/dL (15-53) 05/05/21 03:40 Coronavirus (PCR) Positive (Negative) A 05/05/21 08:30 Hepatitis A IgM Ab Non-reactive (NonReactive) 05/05/21 03:40 Hep Bs Antigen Non-reactive (Negative) 05/05/21 03:40 Hep B Core IgM Ab Non-reactive (NonReactive) 05/05/21 03:40 Hepatitis C Antibody Reactive (NonReactive) A 05/05/21 03:40 Microbiology: Microbiology 05/09/21 13:53 Peripheral/Venous Blood Culture - Final NO GROWTH AFTER 5 DAYS 05/09/21 13:53 Peripheral/Venous Blood Culture - Final NO GROWTH AFTER 5 DAYS [place]/IV: Voiding Method Indwelling Catheter Active Medications - Current Medications Current Medications: Generic Name Dose Route Start Last Admin Trade Name Freq PRN Reason Stop Dose Admin Acetaminophen 650 mg 05/04/21 12:34 05/11/21 11:24 Acetaminophen 325 Mg Tab PO 650 mg Q4H PRN Administration Pain MILD(1-3)/Fever >100.5/MARIA Acetaminophen 650 mg 05/07/21 16:00 05/11/21 16:25 Acetaminophen 650 Mg Rect Supp NM 650 mg Q4H PRN Administration Pain, Mild (1-3) Aspirin 81 mg 05/06/21 14:00 05/14/21 11:26 Aspirin 81 Mg Tab Chew PO 81 mg QDAY RISHI Administration Atorvastatin Calcium 40 mg 05/09/21 22:00 05/14/21 22:49 Atorvastatin 40 Mg Tab FEEDTUBE 40 mg QHS RISHI Administration Chlordiazepoxide HCl 75 mg 05/11/21 15:00 05/15/21 06:27 Chlordiazepoxide 25 Mg Cap PO 75 mg Q8H RISHI Administration Dexamethasone 8 mg 05/08/21 12:00 05/14/21 09:20 Dexamethasone 4 Mg/Ml Vial IV 05/17/21 10:01 8 mg Q24HR RISHI Administration Dextrose 0 ml 05/09/21 10:49 05/14/21 06:55 Dextrose 10% *Hypoglycemia IV 250 ml PRN PRN Administration Hypoglycemia Famotidine 20 mg 05/14/21 10:00 05/14/21 11:26 Famotidine 20 Mg/2 Ml Inj IV 20 mg QDAY RISHI Administration Haloperidol Lactate 5 mg 05/09/21 18:32 05/15/21 03:15 Haloperidol Lactate 5 Mg/1 Ml Inj IV 5 mg Q6H PRN Administration Agitation Heparin Sodium (Porcine) 3,000 unit 05/11/21 14:14 Heparin 10,000 Units/10 Ml Vial IV Q6H PRN Anti-Xa Assay < 0.1 units/ml Hydralazine HCl 50 mg 05/04/21 14:00 05/15/21 06:26 Hydralazine 25 Mg Tab PO 50 mg Q8HR RISHI Administration Hydralazine HCl 10 mg 05/07/21 16:16 05/15/21 03:15 Hydralazine 20 Mg/1 Ml Inj IV 10 mg Q2H PRN Administration Blood Pressure Hydrophilic Ointment 1 applic 05/05/21 15:21 Lip Therapy Vaseline TP Q2HR PRN Dry Lips Propofol 1,000 mg in 100 mls @ 2.449 mls/hr 05/05/21 16:00 05/09/21 06:16 Diprivan 10 Mg/Ml IV 20 mcg/kg/min TITR RISHI 9.798 mls/hr Administration Protocol 5 MCG/KG/MIN Heparin Sodium/Sodium Chloride 25,000 unit in 500 mls @ 24 mls/hr 05/11/21 15:00 05/14/21 15:15 Heparin/ 0.45% Nacl-25,000 Unit/500 Ml IV 1,450 units/hr TITR RISHI 29 mls/hr Administration Protocol 1,200 UNITS/HR Piperacillin Sod/Tazobactam Sod 3.375 gm in 50 mls @ 100 mls/hr 05/13/21 15:00 05/15/21 06:28 Zosyn/Ns 3.375gm/50ml IV 05/18/21 07:29 100 mls/hr Q8H RISHI Administration Protocol Dextrose/Sodium Chloride 1,000 mls @ 100 mls/hr 05/14/21 01:00 05/15/21 01:51 D5ns IV 100 mls/hr DIRECT RISHI Administration Insulin Human Lispro 0 unit 05/10/21 09:40 05/12/21 16:49 Insulin Lispro 100 Unit/Ml SUB-Q 2 unit Q6HR PRN Administration Hyperglycemia Protocol Metoprolol Tartrate 50 mg 05/10/21 14:00 05/14/21 22:47 Metoprolol Tartrate 50 Mg Tab FEEDTUBE 50 mg TID RISHI Administration Multi-Ingred Cream/Lotion/Oil/Oint 1 applic 05/05/21 15:21 Mineral Oil/Petrolatum, White Ophth Oint 3.5 Gm OU Q4HR PRN Dry Eye(s) Ondansetron HCl 4 mg 05/04/21 12:34 05/04/21 21:51 Ondansetron 4 Mg/2 Ml Inj IV 4 mg Q8H PRN Administration Nausea And Vomiting Quetiapine Fumarate 200 mg 05/09/21 22:00 05/14/21 22:54 Quetiapine 200 Mg Tab PO 200 mg BID RISHI Administration Senna/Docusate Sodium 1 tab 05/05/21 22:00 05/14/21 22:49 Sennosides/Docusate Sodium 8.6/50 Mg Tab FEEDTUBE 1 tab BID RISHI Administration Sodium Chloride 10 ml 05/04/21 22:00 05/14/21 09:19 Sodium Chloride 0.9% 10 Ml Flush Syringe IV 10 ml BID RISHI Administration Sodium Chloride 10 ml 05/04/21 12:34 05/06/21 13:59 Sodium Chloride 0.9% 10 Ml Flush Syringe IV 10 ml PRN PRN Administration LINE FLUSH Sodium Chloride 10 ml 05/09/21 09:46 Sodium Chloride 0.9% 50 Ml Ivpb IV PRN PRN FLUSH Nutrition/Malnutrition Assess - Dietary Evaluation Nutrition/Malnutrition Findings: Nutrition Notes Start: 05/05/21 16:15 Freq: Status: Active Protocol: Document 05/11/21 16:30 MORALES (Rec: 05/11/21 16:40 MORALES [id number]) Nutrition Notes Initial or Follow up Brief Note Current Diet TF-Promote @ 60 ml/hr (since D 05/09). Height 5 ft 7 in Weight 81.647 kg [place] Body Weight (kg) 67.27 BMI 28.1 Weight change and time frame No body weight change in 2 days reported. Weight Status Overweight Subjective/Other Information RD consult for routine F/U on TF tolerance. TF continues as prescribed well tolerated. Pt continues on mechanical ventilation. Percent of energy/protein needs met: Prescribed Promote @ 60 ml/hr provides for energy/protein needs (1,444 Kcal/90 g) during LOS, 75% Kcal; 90% AA. #1 Nutrition Diagnosis Inadequate oral intake Diagnosis Progress(for reassessment Continues documentation) Is patient on ventilator? Yes Is Patient Ambulatory and/or Out of Bed No REE-([place]-confined to bed) 3944.609 Calculation Used for Recommendations 70-80% of EEN Additional Notes 15-20 Kcal/Kg ABW. Protein: 1.2-2 g/Kg; 100-164 g /day. Fluids: 1 ml/Kcal, or as per MD. Nutrition Intervention Nutrition Support: Continue Promote @ 60 ml/hr. Flush: 120 ml water Q 4 hr, or as per MD. Kcal 1,444 Protein (gm) 90 Carbohydrates (gm) 188 Fat (gm) 38 Fluid (mL) 1,212 Fiber (gm) 0 % RDI: 75% Kcal; 90% AA. Goal #1 Provide at least 75% of energy /protein needs through Enteral Feeding during LOS. Follow-Up By: 05/16/21 Additional Comments Continue monitoring TF tolerance and BM.
[2021-05-15 08:16] LABS: Hematocrit 31.2 % (35.5-45.6); Mean Corpuscular HGB Conc 32 % (32-34); Mean Corpuscular Volume 94 fl (84-94); Platelet Count 285 K/mm3 (140-440); Red Blood Count 3.32 M/mm3 (3.65-5.03)
[2021-05-15 08:17] LABS: Calcium 8.7 mg/dL (8.4-10.2)
[2021-05-15] MEDS: FAMOTIDINE 20 MG/2 ML INJ IV SCH (10:04)
[2021-05-15] MEDS: ASPIRIN 81 MG TAB CHEW PO SCH (10:04)
[2021-05-15] MEDS: dexAMETHasone 4 MG/ML VIAL IV SCH (10:04)
[2021-05-15] MEDS: QUEtiapine 200 MG TAB PO SCH ×2 (10:04→21:45)
[2021-05-15] MEDS: SENNOSIDES/DOCUSATE SODIUM 8.6/50 MG TAB FEEDTUBE SCH ×2 (10:04→21:43)
[2021-05-15] MEDS: METOPROLOL TARTRATE 50 MG TAB FEEDTUBE SCH ×3 (10:04→21:44)
[2021-05-15] MEDS: HEPARIN/ 0.45% NACL DRIP 25,000 UNIT/500 ML BAG IV SCH (10:25)
[2021-05-15] MEDS ORDERED: POTASSIUM CHLORIDE 20 MEQ PACKET FEEDTUBE ONE ×2 (11:00→18:00)
--- NOTE | 2021-05-15 12:30 | Progress Note ---
Assessment and Plan 56-year-old male with a past medical history of smoking, A. fib, hypertension, and chronic medication noncompliance and homelessness presents to the hospital with complaints of dyspnea exertion x1 month progressively worsening for last 3 days. Patient also having intermittent left-sided chest tightness with activity. Patient complains of a persistent cough without fever. He is unvaccinated for COVID. Patient was admitted here August 2020 for bilateral pneumonia with hypoxia and was COVID-negative at that time. Patient was seen in the ED April 12 for chest pain and subsequently discharged with a refill his medications. Patient never filled the prescriptions and states he has not taking any of his meds for the past year because he cannot afford medications. He denies previous history of stress test. Patient denies any cough or cold- like symptoms. No headache or visual disturbances. Patient denies any associated shortness of breath or diaphoresis. Patients Goodman virus PCR positive. Patients D dimer 2730.67 Patient treated with decadron,I/V heparin, famotidine. Patient sleeping at this time. On room air. O2 saturation 95%. Patient has slight increase in work of breathing. Patient afebrile. Has leukocytosis. Blood pressure 150/109, Pulse 74, Respirations 32. Chest xray done 05/12/21 reported Increased pulmonary interstitial prominence and opacities in bilateral lower lungs with left effusion No pneumothorax. Venous doppler studies of legs 05/11/21 reported Acute DVT in the right peroneal veins. Patient presently on Decadron, I/V Heparin and famotidine and Zosyn. Patient is on tube feeding. I spent critical care time of 35 minutes, reviewing the chart, examine the patient, review chest xray and lab results, talking to the respiratory therapy and nursing staff and work out plan of treatment in this critically ill patient. - Patient Problems (1) Acute hypoxemic respiratory failure Current Visit: No Status: Acute Plan to address problem: Improved. Patient is on room air . O2 saturation 95%. Continue Decadron. Continue I/V Heparin. Continue Famotidine. (2) Bilateral pneumonia Current Visit: No Status: Acute Plan to address problem: Patient is on Zosyn. (3) ARF (acute renal failure) Current Visit: Yes Status: Acute Plan to address problem: Management as per Nephrology. (4) Elevated d-dimer Current Visit: Yes Status: Acute Plan to address problem: Patient is on I/V Heparin. (5) Right leg DVT Current Visit: Yes Status: Acute (6) NSTEMI (non-ST elevated myocardial infarction) Current Visit: Yes Status: Acute Plan to address problem: Management as per cardiology. (7) Polysubstance abuse Current Visit: Yes Status: Acute Plan to address problem: Management as per primary care. (8) Hypertension Current Visit: Yes Status: Chronic Plan to address problem: Management as per primary care. (9) Coronavirus infection Current Visit: Yes Status: Acute Plan to address problem: Patient is on decodron, I/V Heparin, Famotidine and Zosyn. Management as per infectious diseases. Subjective Date of service: 05/15/21 Principal diagnosis: AHRF; COVID-19 infection; NSTEMI; YE; HFrEF (35-40%); Polysubstance abuse Interval history: 56-year-old male with a past medical history of smoking, A. fib, hypertension, and chronic medication noncompliance and homelessness presents to the hospital with complaints of dyspnea exertion x1 month progressively worsening for last 3 days. Patient also having intermittent left-sided chest tightness with acti vity. Patient complains of a persistent cough without fever. He is unvaccinated for COVID. Patient was admitted here August 2020 for bilateral pneumonia with hypoxia and was COVID-negative at that time. Patient was seen in the ED April 12 for chest pain and subsequently discharged with a refill his medications. Patient never filled the prescriptions and states he has not taking any of his meds for the past year because he cannot afford medications. He denies previous history of stress test. Patient denies any cough or cold- like symptoms. No headache or visual disturbances. Patient denies any associated shortness of breath or diaphoresis. Patients Goodman virus PCR positive. Patients D dimer 2730.67 Patient treated with decadron,I/V heparin, famotidine. Patient sleeping at this time. On room air. O2 saturation 95%. Patient has slight increase in work of breathing. Patient afebrile. Has leukocytosis. Blood pressure 150/109, Pulse 74, Respirations 32. Chest xray done 05/12/21 reported Increased pulmonary interstitial prominence and opacities in bilateral lower lungs with left effusion No pneumothorax. Venous doppler studies of legs 05/11/21 reported Acute DVT in the right peroneal veins. Patient presently on Decadron, I/V Heparin and famotidine and Zosyn. Patient is on tube feeding. Objective Vital Signs - 12hr 05/15/21 05/15/21 05/15/21 01:00 02:00 03:00 Temperature Pulse Rate 71 72 75 Pulse Rate [ From Monitor] Respiratory 30 H 38 H 23 Rate Blood Pressure 147/102 161/114 161/114 O2 Sat by Pulse 97 98 98 Oximetry 05/15/21 05/15/21 05/15/21 03:15 04:00 05:00 Temperature 99.0 F Pulse Rate 73 74 74 Pulse Rate [ 75 From Monitor] Respiratory 28 H 17 Rate Blood Pressure 161/110 151/97 151/97 O2 Sat by Pulse 98 98 Oximetry 05/15/21 05/15/21 05/15/21 06:00 06:26 07:00 Temperature Pulse Rate 78 81 74 Pulse Rate [ From Monitor] Respiratory 29 H 35 H Rate Blood Pressure 156/109 164/112 160/103 O2 Sat by Pulse 98 95 Oximetry 05/15/21 05/15/21 05/15/21 07:44 08:00 09:00 Temperature 97.6 F Pulse Rate 78 80 Pulse Rate [ From Monitor] Respiratory 33 H 34 H Rate Blood Pressure 160/103 170/113 O2 Sat by Pulse 94 95 85 Oximetry 05/15/21 05/15/21 05/15/21 10:00 10:04 11:00 Temperature Pulse Rate 74 73 65 Pulse Rate [ From Monitor] Respiratory 38 H 28 H Rate Blood Pressure 178/100 183/106 183/106 O2 Sat by Pulse 98 98 Oximetry Constitutional: no acute distress (sedate), asleep, other (mildly increased respiratory effort at rest) Eyes: non-icteric ENT: oropharynx moist Neck: supple, no lymphadenopathy, no JVD Effort: normal Ascultation: Bilateral: diminished breath sounds Percussion: Bilateral: not dull Cardiovascular: irregular rhythm, other (S1,S2) Gastrointestinal: normoactive bowel sounds, soft, non-tender, non-distended Integumentary: normal Extremities: no cyanosis, no edema, pulses normal, no ischemia or petechiae Neurologic: non-focal exam, pupils equal and round, CN II-XII normal Psychiatric: other (Patient sleeping at this time.) CBC and BMP: 05/15/21 07:26 05/15/21 07:26 ABG, PT/INR, D-dimer: ABG ABG pH 7.456 pH Units (7.350-7.450) H 05/13/21 11:15 ABG pCO2 36.5 mm Hg 05/13/21 11:15 ABG pO2 106.0 mm Hg (80.0-90.0) H 05/13/21 11:15 ABG O2 Saturation 98.0 % (95.0-99.0) 05/13/21 11:15 PT/INR, D-dimer PT 15.6 Sec. (12.2-14.9) H 05/11/21 14:43 INR 1.12 (0.87-1.13) 05/11/21 14:43 D-Dimer 2730.61 ng/mlDDU (0-234) H 05/12/21 07:19 Abnormal lab findings: Abnormal Labs 05/04/21 05/04/21 05/04/21 07:25 07:25 07:25 WBC 12.9 H RBC 3.04 L Hgb 9.5 L Hct 28.4 L MCV RDW 15.4 H Lymph % (Auto) 11.4 L [place] % (Auto) 10.1 H Lymph # (Auto) [place] # (Auto) 1.3 H Seg Neutrophils % 78.0 H Seg Neutrophils # 10.0 H PT 15.1 H D-Dimer Heparin Anti-Xa Level ABG pH ABG pO2 ABG Base Excess ABG Hemoglobin Sodium 135 L Potassium Chloride Carbon Dioxide BUN 65 H Creatinine 3.4 H Glucose 118 H POC Glucose Calcium Ferritin Total Bilirubin 1.50 H AST 519 H ALT 475 H Lactate Dehydrogenase Total Creatine Kinase Troponin T 1.300 H* C-Reactive Protein Albumin Urine WBC (Auto) Urine Creatinine Urine Total Protein Complement C3 Coronavirus (PCR) Hepatitis C Antibody 05/04/21 05/04/21 05/04/21 07:25 08:42 08:42 WBC RBC Hgb Hct MCV RDW Lymph % (Auto) [place] % (Auto) Lymph # (Auto) [place] # (Auto) Seg Neutrophils % Seg Neutrophils # PT D-Dimer 579.49 H Heparin Anti-Xa Level ABG pH ABG pO2 ABG Base Excess ABG Hemoglobin Sodium Potassium Chloride Carbon Dioxide BUN Creatinine Glucose POC Glucose Calcium Ferritin Total Bilirubin AST ALT Lactate Dehydrogenase Total Creatine Kinase 406 H Troponin T 1.230 H* C-Reactive Protein Albumin Urine WBC (Auto) Urine Creatinine Urine Total Protein Complement C3 Coronavirus (PCR) Hepatitis C Antibody 05/04/21 05/04/21 05/04/21 10:13 13:34 18:14 WBC RBC Hgb 8.8 L Hct 26.6 L MCV RDW Lymph % (Auto) [place] % (Auto) Lymph # (Auto) [place] # (Auto) Seg Neutrophils % Seg Neutrophils # PT D-Dimer Heparin Anti-Xa Level < 0.10 L ABG pH ABG pO2 ABG Base Excess ABG Hemoglobin Sodium Potassium Chloride Carbon Dioxide BUN Creatinine Glucose POC Glucose Calcium Ferritin Total Bilirubin AST ALT Lactate Dehydrogenase Total Creatine Kinase Troponin T 1.400 H* C-Reactive Protein Albumin Urine WBC (Auto) Urine Creatinine Urine Total Protein Complement C3 Coronavirus (PCR) Hepatitis C Antibody 05/05/21 05/05/21 05/05/21 03:40 03:40 03:40 WBC RBC Hgb Hct MCV RDW Lymph % (Auto) [place] % (Auto) Lymph # (Auto) [place] # (Auto) Seg Neutrophils % Seg Neutrophils # PT D-Dimer Heparin Anti-Xa Level 0.11 L ABG pH ABG pO2 ABG Base Excess ABG Hemoglobin Sodium Potassium 3.3 L Chloride Carbon Dioxide BUN 59 H Creatinine 2.6 H Glucose 139 H POC Glucose Calcium Ferritin Total Bilirubin AST ALT Lactate Dehydrogenase Total Creatine Kinase Troponin T C-Reactive Protein Albumin Urine WBC (Auto) Urine Creatinine Urine Total Protein Complement C3 Coronavirus (PCR) Hepatitis C Antibody Reactive A 05/05/21 05/05/21 05/05/21 03:40 08:30 09:57 WBC RBC Hgb Hct MCV RDW Lymph % (Auto) [place] % (Auto) Lymph # (Auto) [place] # (Auto) Seg Neutrophils % Seg Neutrophils # PT D-Dimer Heparin Anti-Xa Level ABG pH ABG pO2 ABG Base Excess ABG Hemoglobin Sodium Potassium Chloride Carbon Dioxide BUN Creatinine Glucose POC Glucose Calcium Ferritin Total Bilirubin AST ALT Lactate Dehydrogenase Total Creatine Kinase Troponin T C-Reactive Protein Albumin Urine WBC (Auto) Urine Creatinine 100.8 H Urine Total Protein Complement C3 72 L Coronavirus (PCR) Positive A Hepatitis C Antibody 05/05/21 05/05/21 05/05/21 11:28 17:00 19:51 WBC RBC Hgb Hct MCV RDW Lymph % (Auto) [place] % (Auto) Lymph # (Auto) [place] # (Auto) Seg Neutrophils % Seg Neutrophils # PT D-Dimer Heparin Anti-Xa Level 0.10 L 0.22 L ABG pH 7.304 L ABG pO2 140.8 H ABG Base Excess -2.1 L ABG Hemoglobin 10.2 L Sodium Potassium Chloride Carbon Dioxide BUN Creatinine Glucose POC Glucose Calcium Ferritin Total Bilirubin AST ALT Lactate Dehydrogenase Total Creatine Kinase Troponin T C-Reactive Protein Albumin Urine WBC (Auto) Urine Creatinine Urine Total Protein Complement C3 Coronavirus (PCR) Hepatitis C Antibody 05/06/21 05/06/21 05/06/21 03:47 06:15 17:53 WBC RBC Hgb 9.0 L Hct 27.8 L MCV RDW Lymph % (Auto) [place] % (Auto) Lymph # (Auto) [place] # (Auto) Seg Neutrophils % Seg Neutrophils # PT D-Dimer Heparin Anti-Xa Level 0.10 L ABG pH ABG pO2 143.5 H ABG Base Excess -2.4 L ABG Hemoglobin 6.9 L Sodium Potassium Chloride Carbon Dioxide BUN Creatinine Glucose POC Glucose Calcium Ferritin Total Bilirubin AST ALT Lactate Dehydrogenase Total Creatine Kinase Troponin T C-Reactive Protein Albumin Urine WBC (Auto) Urine Creatinine Urine Total Protein Complement C3 Coronavirus (PCR) Hepatitis C Antibody 05/07/21 05/07/21 05/07/21 00:07 03:22 03:45 WBC RBC Hgb Hct MCV RDW Lymph % (Auto) [place] % (Auto) Lymph # (Auto) [place] # (Auto) Seg Neutrophils % Seg Neutrophils # PT D-Dimer Heparin Anti-Xa Level < 0.10 L ABG pH ABG pO2 104.3 H ABG Base Excess -2.6 L ABG Hemoglobin 9.1 L Sodium Potassium Chloride 107.1 H Carbon Dioxide 20 L BUN 56 H Creatinine 2.9 H Glucose POC Glucose Calcium Ferritin Total Bilirubin AST ALT Lactate Dehydrogenase Total Creatine Kinase Troponin T C-Reactive Protein Albumin Urine WBC (Auto) Urine Creatinine Urine Total Protein Complement C3 Coronavirus (PCR) Hepatitis C Antibody 05/07/21 05/07/21 05/07/21 07:44 16:28 22:41 WBC RBC Hgb Hct MCV RDW Lymph % (Auto) [place] % (Auto) Lymph # (Auto) [place] # (Auto) Seg Neutrophils % Seg Neutrophils # PT D-Dimer Heparin Anti-Xa Level < 0.10 L 0.10 L < 0.10 L ABG pH ABG pO2 ABG Base Excess ABG Hemoglobin Sodium Potassium Chloride Carbon Dioxide BUN Creatinine Glucose POC Glucose Calcium Ferritin Total Bilirubin AST ALT Lactate Dehydrogenase Total Creatine Kinase Troponin T C-Reactive Protein Albumin Urine WBC (Auto) Urine Creatinine Urine Total Protein Complement C3 Coronavirus (PCR) Hepatitis C Antibody 05/08/21 05/08/21 05/08/21 03:25 04:34 07:30 WBC 12.4 H RBC 3.02 L Hgb 9.5 L Hct 29.2 L MCV 97 H RDW 16.7 H Lymph % (Auto) 8.1 L [place] % (Auto) 11.0 H Lymph # (Auto) 1.0 L [place] # (Auto) 1.4 H Seg Neutrophils % 80.1 H Seg Neutrophils # 9.9 H PT D-Dimer Heparin Anti-Xa Level ABG pH ABG pO2 139.0 H ABG Base Excess ABG Hemoglobin 8.8 L Sodium Potassium Chloride 110.5 H Carbon Dioxide BUN 59 H Creatinine 2.8 H Glucose 103 H POC Glucose Calcium Ferritin Total Bilirubin AST ALT 327 H Lactate Dehydrogenase Total Creatine Kinase Troponin T C-Reactive Protein Albumin 3.1 L Urine WBC (Auto) Urine Creatinine Urine Total Protein Complement C3 Coronavirus (PCR) Hepatitis C Antibody 05/09/21 05/09/21 05/09/21 04:10 04:20 04:20 WBC 11.7 H RBC 2.79 L Hgb 8.7 L Hct 26.5 L MCV 95 H RDW 16.2 H Lymph % (Auto) [place] % (Auto) Lymph # (Auto) [place] # (Auto) Seg Neutrophils % Seg Neutrophils # PT D-Dimer Heparin Anti-Xa Level ABG pH ABG pO2 161.6 H ABG Base Excess ABG Hemoglobin 8.3 L Sodium 151 H Potassium Chloride 114.5 H Carbon Dioxide 21 L BUN 57 H Creatinine 2.4 H Glucose POC Glucose Calcium Ferritin Total Bilirubin AST ALT 210 H Lactate Dehydrogenase Total Creatine Kinase Troponin T C-Reactive Protein Albumin 2.9 L Urine WBC (Auto) Urine Creatinine Urine Total Protein Complement C3 Coronavirus (PCR) Hepatitis C Antibody 05/09/21 05/09/21 05/09/21 09:48 09:48 13:22 WBC 11.6 H RBC 3.00 L Hgb 9.0 L Hct 28.4 L MCV RDW 15.9 H Lymph % (Auto) 5.9 L [place] % (Auto) 8.9 H Lymph # (Auto) 0.7 L [place] # (Auto) 1.0 H Seg Neutrophils % 84.3 H Seg Neutrophils # 9.8 H PT D-Dimer Heparin Anti-Xa Level ABG pH ABG pO2 ABG Base Excess ABG Hemoglobin Sodium Potassium Chloride Carbon Dioxide BUN Creatinine Glucose POC Glucose Calcium Ferritin Total Bilirubin AST ALT Lactate Dehydrogenase Total Creatine Kinase Troponin T C-Reactive Protein 8.70 H Albumin Urine WBC (Auto) 25.0 H Urine Creatinine Urine Total Protein Complement C3 Coronavirus (PCR) Hepatitis C Antibody 05/09/21 05/09/21 05/10/21 15:20 18:16 04:57 WBC RBC 2.87 L Hgb 8.8 L Hct 27.0 L MCV RDW 15.9 H Lymph % (Auto) [place] % (Auto) Lymph # (Auto) [place] # (Auto) Seg Neutrophils % Seg Neutrophils # PT D-Dimer Heparin Anti-Xa Level ABG pH ABG pO2 102.0 H ABG Base Excess -2.8 L ABG Hemoglobin 9.0 L Sodium Potassium Chloride Carbon Dioxide BUN Creatinine Glucose POC Glucose 130 H Calcium Ferritin Total Bilirubin AST ALT Lactate Dehydrogenase Total Creatine Kinase Troponin T C-Reactive Protein Albumin Urine WBC (Auto) Urine Creatinine Urine Total Protein Complement C3 Coronavirus (PCR) Hepatitis C Antibody 05/10/21 05/10/21 05/10/21 04:57 04:57 04:57 WBC RBC Hgb Hct MCV RDW Lymph % (Auto) [place] % (Auto) Lymph # (Auto) [place] # (Auto) Seg Neutrophils % Seg Neutrophils # PT D-Dimer 1546.78 H Heparin Anti-Xa Level ABG pH ABG pO2 ABG Base Excess ABG Hemoglobin Sodium 148 H Potassium Chloride 114.9 H Carbon Dioxide 21 L BUN 57 H Creatinine 2.3 H Glucose 157 H POC Glucose Calcium Ferritin 888.2 H Total Bilirubin AST ALT Lactate Dehydrogenase 289 H Total Creatine Kinase Troponin T C-Reactive Protein 6.80 H Albumin Urine WBC (Auto) Urine Creatinine Urine Total Protein Complement C3 Coronavirus (PCR) Hepatitis C Antibody 05/10/21 05/10/21 05/10/21 05:09 08:04 11:03 WBC RBC Hgb Hct MCV RDW Lymph % (Auto) [place] % (Auto) Lymph # (Auto) [place] # (Auto) Seg Neutrophils % Seg Neutrophils # PT D-Dimer Heparin Anti-Xa Level ABG pH 7.473 H ABG pO2 114.6 H ABG Base Excess ABG Hemoglobin 9.5 L Sodium Potassium Chloride Carbon Dioxide BUN Creatinine Glucose POC Glucose 152 H Calcium Ferritin Total Bilirubin AST ALT Lactate Dehydrogenase Total Creatine Kinase Troponin T C-Reactive Protein Albumin Urine WBC (Auto) Urine Creatinine 100.8 H Urine Total Protein 42 H Complement C3 Coronavirus (PCR) Hepatitis C Antibody 05/10/21 05/10/21 05/10/21 13:07 18:01 23:31 WBC RBC Hgb Hct MCV RDW Lymph % (Auto) [place] % (Auto) Lymph # (Auto) [place] # (Auto) Seg Neutrophils % Seg Neutrophils # PT D-Dimer Heparin Anti-Xa Level ABG pH ABG pO2 ABG Base Excess ABG Hemoglobin Sodium Potassium Chloride Carbon Dioxide BUN Creatinine Glucose POC Glucose 150 H 189 H 142 H Calcium Ferritin Total Bilirubin AST ALT Lactate Dehydrogenase Total Creatine Kinase Troponin T C-Reactive Protein Albumin Urine WBC (Auto) Urine Creatinine Urine Total Protein Complement C3 Coronavirus (PCR) Hepatitis C Antibody 05/10/21 05/11/21 05/11/21 Unknown 05:25 06:53 WBC RBC Hgb Hct MCV RDW Lymph % (Auto) [place] % (Auto) Lymph # (Auto) [place] # (Auto) Seg Neutrophils % Seg Neutrophils # PT D-Dimer Heparin Anti-Xa Level ABG pH ABG pO2 126.6 H ABG Base Excess ABG Hemoglobin 9.2 L Sodium 150 H Potassium Chloride 116.6 H Carbon Dioxide 21 L BUN 62 H Creatinine 2.5 H Glucose 142 H POC Glucose 163 H Calcium Ferritin Total Bilirubin AST ALT Lactate Dehydrogenase Total Creatine Kinase Troponin T C-Reactive Protein Albumin Urine WBC (Auto) Urine Creatinine Urine Total Protein Complement C3 Coronavirus (PCR) Hepatitis C Antibody 05/11/21 05/11/21 05/11/21 06:53 11:06 13:51 WBC RBC 3.07 L Hgb 9.3 L Hct 29.0 L MCV 95 H RDW 16.1 H Lymph % (Auto) [place] % (Auto) Lymph # (Auto) [place] # (Auto) Seg Neutrophils % Seg Neutrophils # PT D-Dimer Heparin Anti-Xa Level ABG pH ABG pO2 74.9 L ABG Base Excess -3.3 L ABG Hemoglobin 10.8 L Sodium Potassium Chloride Carbon Dioxide BUN Creatinine Glucose POC Glucose 145 H Calcium Ferritin Total Bilirubin AST ALT Lactate Dehydrogenase Total Creatine Kinase Troponin T C-Reactive Protein Albumin Urine WBC (Auto) Urine Creatinine Urine Total Protein Complement C3 Coronavirus (PCR) Hepatitis C Antibody 05/11/21 05/11/21 05/11/21 14:43 14:43 15:47 WBC RBC Hgb 9.2 L Hct 29.7 L MCV RDW Lymph % (Auto) [place] % (Auto) Lymph # (Auto) [place] # (Auto) Seg Neutrophils % Seg Neutrophils # PT 15.6 H D-Dimer Heparin Anti-Xa Level ABG pH ABG pO2 ABG Base Excess ABG Hemoglobin Sodium Potassium Chloride Carbon Dioxide BUN Creatinine Glucose POC Glucose 137 H Calcium Ferritin Total Bilirubin AST ALT Lactate Dehydrogenase Total Creatine Kinase Troponin T C-Reactive Protein Albumin Urine WBC (Auto) Urine Creatinine Urine Total Protein Complement C3 Coronavirus (PCR) Hepatitis C Antibody 05/12/21 05/12/21 05/12/21 00:04 05:07 07:19 WBC 11.9 H RBC 3.00 L Hgb 9.1 L Hct 28.9 L MCV 96 H RDW 16.7 H Lymph % (Auto) 11.5 L [place] % (Auto) 8.2 H Lymph # (Auto) [place] # (Auto) 1.0 H Seg Neutrophils % 80.0 H Seg Neutrophils # 9.6 H PT D-Dimer Heparin Anti-Xa Level ABG pH ABG pO2 ABG Base Excess ABG Hemoglobin Sodium Potassium Chloride Carbon Dioxide BUN Creatinine Glucose POC Glucose 121 H 117 H Calcium Ferritin Total Bilirubin AST ALT Lactate Dehydrogenase Total Creatine Kinase Troponin T C-Reactive Protein Albumin Urine WBC (Auto) Urine Creatinine Urine Total Protein Complement C3 Coronavirus (PCR) Hepatitis C Antibody 05/12/21 05/12/21 05/12/21 07:19 07:19 07:19 WBC RBC Hgb Hct MCV RDW Lymph % (Auto) [place] % (Auto) Lymph # (Auto) [place] # (Auto) Seg Neutrophils % Seg Neutrophils # PT D-Dimer 2730.61 H Heparin Anti-Xa Level ABG pH ABG pO2 ABG Base Excess ABG Hemoglobin Sodium 146 H Potassium 5.1 H Chloride 112.4 H Carbon Dioxide 21 L BUN 61 H Creatinine 2.2 H Glucose 136 H POC Glucose Calcium 8.1 L Ferritin 640.2 H Total Bilirubin AST ALT Lactate Dehydrogenase 314 H Total Creatine Kinase Troponin T C-Reactive Protein 1.60 H Albumin Urine WBC (Auto) Urine Creatinine Urine Total Protein Complement C3 Coronavirus (PCR) Hepatitis C Antibody 05/12/21 05/12/21 05/12/21 11:10 16:10 16:38 WBC RBC Hgb Hct MCV RDW Lymph % (Auto) [place] % (Auto) Lymph # (Auto) [place] # (Auto) Seg Neutrophils % Seg Neutrophils # PT D-Dimer Heparin Anti-Xa Level 0.20 L ABG pH ABG pO2 ABG Base Excess ABG Hemoglobin Sodium Potassium Chloride Carbon Dioxide BUN Creatinine Glucose POC Glucose 131 H 157 H Calcium Ferritin Total Bilirubin AST ALT Lactate Dehydrogenase Total Creatine Kinase Troponin T C-Reactive Protein Albumin Urine WBC (Auto) Urine Creatinine Urine Total Protein Complement C3 Coronavirus (PCR) Hepatitis C Antibody 05/12/21 05/13/21 05/13/21 23:30 00:12 04:20 WBC RBC Hgb Hct MCV RDW Lymph % (Auto) [place] % (Auto) Lymph # (Auto) [place] # (Auto) Seg Neutrophils % Seg Neutrophils # PT D-Dimer Heparin Anti-Xa Level 0.13 L ABG pH ABG pO2 ABG Base Excess ABG Hemoglobin Sodium Potassium Chloride 111.2 H Carbon Dioxide BUN 53 H Creatinine 1.9 H Glucose 121 H POC Glucose 115 H Calcium 8.3 L Ferritin Total Bilirubin AST ALT Lactate Dehydrogenase Total Creatine Kinase Troponin T C-Reactive Protein Albumin Urine WBC (Auto) Urine Creatinine Urine Total Protein Complement C3 Coronavirus (PCR) Hepatitis C Antibody 05/13/21 05/13/21 05/13/21 04:20 11:15 11:29 WBC 13.1 H RBC 2.86 L Hgb 8.5 L Hct 26.9 L MCV RDW 15.7 H Lymph % (Auto) [place] % (Auto) Lymph # (Auto) [place] # (Auto) Seg Neutrophils % Seg Neutrophils # PT D-Dimer Heparin Anti-Xa Level ABG pH 7.456 H ABG pO2 106.0 H ABG Base Excess ABG Hemoglobin 7.1 L Sodium Potassium Chloride Carbon Dioxide BUN Creatinine Glucose POC Glucose 121 H Calcium Ferritin Total Bilirubin AST ALT Lactate Dehydrogenase Total Creatine Kinase Troponin T C-Reactive Protein Albumin Urine WBC (Auto) Urine Creatinine Urine Total Protein Complement C3 Coronavirus (PCR) Hepatitis C Antibody 05/13/21 05/13/21 05/14/21 16:38 23:43 04:26 WBC 14.2 H RBC 3.11 L Hgb 9.4 L Hct 29.3 L MCV RDW 15.4 H Lymph % (Auto) [place] % (Auto) Lymph # (Auto) [place] # (Auto) Seg Neutrophils % Seg Neutrophils # PT D-Dimer Heparin Anti-Xa Level ABG pH ABG pO2 ABG Base Excess ABG Hemoglobin Sodium Potassium Chloride Carbon Dioxide BUN Creatinine Glucose POC Glucose 119 H 55 L Calcium Ferritin Total Bilirubin AST ALT Lactate Dehydrogenase Total Creatine Kinase Troponin T C-Reactive Protein Albumin Urine WBC (Auto) Urine Creatinine Urine Total Protein Complement C3 Coronavirus (PCR) Hepatitis C Antibody 05/14/21 05/14/21 05/14/21 04:26 05:26 06:51 WBC RBC Hgb Hct MCV RDW Lymph % (Auto) [place] % (Auto) Lymph # (Auto) [place] # (Auto) Seg Neutrophils % Seg Neutrophils # PT D-Dimer Heparin Anti-Xa Level ABG pH ABG pO2 ABG Base Excess ABG Hemoglobin Sodium Potassium 3.4 L Chloride 107.6 H Carbon Dioxide BUN 42 H Creatinine 1.9 H Glucose POC Glucose 51 L 62 L Calcium Ferritin Total Bilirubin AST ALT Lactate Dehydrogenase Total Creatine Kinase Troponin T C-Reactive Protein Albumin Urine WBC (Auto) Urine Creatinine Urine Total Protein Complement C3 Coronavirus (PCR) Hepatitis C Antibody 05/14/21 05/14/21 05/14/21 09:58 12:05 12:08 WBC RBC Hgb Hct MCV RDW Lymph % (Auto) [place] % (Auto) Lymph # (Auto) [place] # (Auto) Seg Neutrophils % Seg Neutrophils # PT D-Dimer Heparin Anti-Xa Level ABG pH ABG pO2 ABG Base Excess ABG Hemoglobin Sodium Potassium 3.4 L Chloride Carbon Dioxide BUN 36 H Creatinine 1.8 H Glucose 133 H POC Glucose 60 L 127 H Calcium Ferritin Total Bilirubin AST ALT Lactate Dehydrogenase Total Creatine Kinase Troponin T C-Reactive Protein Albumin Urine WBC (Auto) Urine Creatinine Urine Total Protein Complement C3 Coronavirus (PCR) Hepatitis C Antibody 05/14/21 05/14/21 05/15/21 17:20 23:37 05:34 WBC RBC Hgb Hct MCV RDW Lymph % (Auto) [place] % (Auto) Lymph # (Auto) [place] # (Auto) Seg Neutrophils % Seg Neutrophils # PT D-Dimer Heparin Anti-Xa Level ABG pH ABG pO2 ABG Base Excess ABG Hemoglobin Sodium Potassium Chloride Carbon Dioxide BUN Creatinine Glucose POC Glucose 144 H 115 H 119 H Calcium Ferritin Total Bilirubin AST ALT Lactate Dehydrogenase Total Creatine Kinase Troponin T C-Reactive Protein Albumin Urine WBC (Auto) Urine Creatinine Urine Total Protein Complement C3 Coronavirus (PCR) Hepatitis C Antibody 05/15/21 05/15/21 07:26 07:26 WBC 13.8 H RBC 3.32 L Hgb 10.0 L Hct 31.2 L MCV RDW 16.0 H Lymph % (Auto) [place] % (Auto) Lymph # (Auto) [place] # (Auto) Seg Neutrophils % Seg Neutrophils # PT D-Dimer Heparin Anti-Xa Level ABG pH ABG pO2 ABG Base Excess ABG Hemoglobin Sodium 149 H D Potassium 3.5 L Chloride 113.2 H Carbon Dioxide BUN 29 H Creatinine 1.8 H Glucose 113 H POC Glucose Calcium Ferritin Total Bilirubin AST ALT Lactate Dehydrogenase Total Creatine Kinase Troponin T C-Reactive Protein Albumin Urine WBC (Auto) Urine Creatinine Urine Total Protein Complement C3 Coronavirus (PCR) Hepatitis C Antibody Chest x-ray: report reviewed, image reviewed Prior PFT's, U/S of legs: report reviewed, image reviewed Additional Studies: CHEST 1 VIEW 05/12/2021 1:27 AM INDICATION / CLINICAL INFORMATION: follow up respiratory failure. COMPARISON: 05/11/2021 FINDINGS: SUPPORT DEVICES: Stable, satisfactory device positioning. HEART / MEDIASTINUM: No significant abnormality. LUNGS / PLEURA: Increased pulmonary interstitial prominence and opacities in bilateral lower lungs with left effusion No pneumothorax. ADDITIONAL FINDINGS: No significant additional findings. IMPRESSION: No significant change DUPLEX DOPPLER LOWER EXTREMITY VEINS, BILATERAL 05/11/21 INDICATION / CLINICAL INFORMATION: COVID 19. Acute respiratory failure. TECHNIQUE: Duplex doppler imaging was performed through the veins of both lower extremities using venous compression and other maneuvers. COMPARISON: None available. FINDINGS: RIGHT COMMON FEMORAL VEIN: Negative. RIGHT FEMORAL VEIN: Negative. RIGHT POPLITEAL VEIN: Negative. RIGHT CALF VEINS: Acute occlusive thrombus in the right peroneal veins. LEFT COMMON FEMORAL VEIN: Negative. LEFT FEMORAL VEIN: Negative. LEFT POPLITEAL VEIN: Negative. LEFT CALF VEINS: Negative. ADDITIONAL FINDINGS.: No abnormal mass or fluid collection is seen. IMPRESSION: Acute DVT in the right peroneal veins. Allied health notes reviewed: nursing
--- NOTE | 2021-05-15 16:15 | Progress Note ---
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 UOP and lytes are stable. Creatinine is 2.3->2.5->2.2->1.9->1.9 * IVF prn as tolerated to maintain euvolemia, note non-oliguric urine output * Serum sodium stable higher today to 149, continue free water flushes with TFs * Replete K prn, note K 3.5 this AM * Await pending serologies and urine lytes- ANCA negative, AUDRA negative, C4 WNL. C3 mildly low at 72, no change to management for now. Urine protei n/creatinine minimal at 0.4g * Renal ultrasound reviewed - will need follow up CT once stable * Continue antiHTN medications * Cardiology, ICU input noted * Dose medications for renal function * Avoid potential nephrotoxins * Strict I/O Subjective Date of service: 05/15/21 Principal diagnosis: AHRF; COVID-19 infection; NSTEMI; YE; HFrEF (35-40%); Polysubstance abuse Interval history: Patient extubated, on NC. Chart, vitals, labs reviewed. Remains confused Objective - Exam Narrative Exam: Direct examination deferred in setting of COVID-19 pandemic. Primary team exam reviewed in detail - Vital Signs Vital signs: Vital Signs - 12hr 05/15/21 05/15/21 05/15/21 05:00 06:00 06:26 Temperature Pulse Rate 74 78 81 Pulse Rate [ From Monitor] Respiratory 17 29 H Rate Blood Pressure 151/97 156/109 164/112 O2 Sat by Pulse 98 98 Oximetry 05/15/21 05/15/21 05/15/21 07:00 07:44 08:00 Temperature 97.6 F Pulse Rate 74 78 Pulse Rate [ 80 From Monitor] Respiratory 35 H 30 H Rate Blood Pressure 160/103 160/103 O2 Sat by Pulse 95 94 100 Oximetry 05/15/21 05/15/21 05/15/21 09:00 10:00 10:04 Temperature Pulse Rate 80 74 73 Pulse Rate [ From Monitor] Respiratory 34 H 38 H Rate Blood Pressure 170/113 178/100 183/106 O2 Sat by Pulse 85 98 Oximetry 05/15/21 05/15/21 05/15/21 11:00 12:00 13:00 Temperature Pulse Rate 65 66 73 Pulse Rate [ 78 From Monitor] Respiratory 28 H 32 H 35 H Rate Blood Pressure 183/106 141/100 150/109 O2 Sat by Pulse 98 100 97 Oximetry 05/15/21 05/15/21 05/15/21 14:00 14:36 14:51 Temperature Pulse Rate 79 75 98 H Pulse Rate [ From Monitor] Respiratory 37 H Rate Blood Pressure 168/130 168/100 156/104 O2 Sat by Pulse 95 Oximetry 05/15/21 15:00 Temperature Pulse Rate 77 Pulse Rate [ From Monitor] Respiratory 38 H Rate Blood Pressure 152/104 O2 Sat by Pulse 92 Oximetry - Lab 05/15/21 07:26 05/15/21 07:26 Most recent lab results ABG pH 7.456 pH Units (7.350-7.450) H 05/13/21 11:15 ABG pCO2 36.5 mm Hg 05/13/21 11:15 ABG pO2 106.0 mm Hg (80.0-90.0) H 05/13/21 11:15 ABG HCO3 25.2 mmol/L (20.0-26.0) 05/13/21 11:15 ABG O2 Saturation 98.0 % (95.0-99.0) 05/13/21 11:15 Calcium 8.7 mg/dL (8.4-10.2) 05/15/21 07:26 Phosphorus 4.00 mg/dL (2.5-4.5) 05/14/21 15:44 Magnesium 2.00 mg/dL (1.7-2.3) 05/14/21 15:44 Urine Creatinine 100.8 mg/dL (0.1-20.0) H 05/10/21 11:03 Urine Sodium 61 mmol/L 05/05/21 09:57 Urine Total Protein 42 mg/dL (5-11.8) H 05/10/21 11:03 Medications & Allergies - Medications Allergies/Adverse Reactions: Allergies No Known Allergies Allergy (Verified 05/08/21 07:47) Home Medications: Home Medications Medication Instructions Recorded Confirmed Last Taken Type Cefpodoxime Proxetil 200 mg PO Q12H #10 tablet 09/11/20 Unknown Rx Famotidine [Pepcid] 20 mg PO BID #30 tablet 04/13/21 Unknown Rx Losartan [Cozaar] 100 mg PO QDAY #60 tablet 04/13/21 Unknown Rx Metoprolol Xl [Metoprolol 25 mg PO QDAY #30 tablet 04/13/21 Unknown Rx SUCCINATE ER TAB] NIFEdipine XL [Procardia Xl] 60 mg PO Q12HR #60 tablet 04/13/21 Unknown Rx hydrALAZINE [Apresoline TAB] 50 mg PO Q8HR #180 tablet 04/13/21 Unknown Rx Active Medications: Generic Name Dose Route Start Last Admin Trade Name Freq PRN Reason Stop Dose Admin Acetaminophen 650 mg 05/04/21 12:34 05/11/21 11:24 Acetaminophen 325 Mg Tab PO 650 mg Q4H PRN Administration Pain MILD(1-3)/Fever >100.5/MARIA Acetaminophen 650 mg 05/07/21 16:00 05/11/21 16:25 Acetaminophen 650 Mg Rect Supp [place] 650 mg Q4H PRN Administration Pain, Mild (1-3) Amlodipine Besylate 10 mg 05/15/21 11:00 Amlodipine 10 Mg Tab FEEDTUBE QDAY RISHI Aspirin 81 mg 05/06/21 14:00 05/15/21 10:04 Aspirin 81 Mg Tab Chew PO 81 mg QDAY RISHI Administration Atorvastatin Calcium 40 mg 05/09/21 22:00 05/14/21 22:49 Atorvastatin 40 Mg Tab FEEDTUBE 40 mg QHS RISHI Administration Chlordiazepoxide HCl 75 mg 05/11/21 15:00 05/15/21 14:37 Chlordiazepoxide 25 Mg Cap PO 75 mg Q8H RISHI Administration Dexamethasone 8 mg 05/08/21 12:00 05/15/21 10:04 Dexamethasone 4 Mg/Ml Vial IV 05/17/21 10:01 8 mg Q24HR RISHI Administration Dextrose 0 ml 05/09/21 10:49 05/14/21 06:55 Dextrose 10% *Hypoglycemia IV 250 ml PRN PRN Administration Hypoglycemia Famotidine 20 mg 05/14/21 10:00 05/15/21 10:04 Famotidine 20 Mg/2 Ml Inj IV 20 mg QDAY RISHI Administration Haloperidol Lactate 5 mg 05/09/21 18:32 05/15/21 03:15 Haloperidol Lactate 5 Mg/1 Ml Inj IV 5 mg Q6H PRN Administration Agitation Heparin Sodium (Porcine) 3,000 unit 05/11/21 14:14 Heparin 10,000 Units/10 Ml Vial IV Q6H PRN Anti-Xa Assay < 0.1 units/ml Hydralazine HCl 50 mg 05/04/21 14:00 05/15/21 14:36 Hydralazine 25 Mg Tab PO 50 mg Q8HR RISHI Administration Hydralazine HCl 10 mg 05/07/21 16:16 05/15/21 14:51 Hydralazine 20 Mg/1 Ml Inj IV 10 mg Q2H PRN Administration Blood Pressure Hydrophilic Ointment 1 applic 05/05/21 15:21 Lip Therapy Vaseline TP Q2HR PRN Dry Lips Heparin Sodium/Sodium Chloride 25,000 unit in 500 mls @ 24 mls/hr 05/11/21 15:00 05/15/21 10:25 Heparin/ 0.45% Nacl-25,000 Unit/500 Ml IV 1,450 units/hr TITR RISHI 29 mls/hr Administration Protocol 1,200 UNITS/HR Piperacillin Sod/Tazobactam Sod 3.375 gm in 50 mls @ 100 mls/hr 05/13/21 15:00 05/15/21 14:36 Zosyn/Ns 3.375gm/50ml IV 05/18/21 07:29 100 mls/hr Q8H RISHI Administration Protocol Dextrose/Sodium Chloride 1,000 mls @ 100 mls/hr 05/14/21 01:00 05/15/21 14:38 D5ns IV 100 mls/hr DIRECT RISHI Administration Insulin Human Lispro 0 unit 05/10/21 09:40 05/12/21 16:49 Insulin Lispro 100 Unit/Ml SUB-Q 2 unit Q6HR PRN Administration Hyperglycemia Protocol Labetalol HCl 10 mg 05/15/21 10:24 Labetalol 20 Mg/4 Ml Inj IV Q4H PRN sbp> 160. Metoprolol Tartrate 50 mg 05/10/21 14:00 05/15/21 14:36 Metoprolol Tartrate 50 Mg Tab FEEDTUBE 50 mg TID RISHI Administration Multi-Ingred Cream/Lotion/Oil/Oint 1 applic 05/05/21 15:21 Mineral Oil/Petrolatum, White Ophth Oint 3.5 Gm OU Q4HR PRN Dry Eye(s) Ondansetron HCl 4 mg 05/04/21 12:34 05/04/21 21:51 Ondansetron 4 Mg/2 Ml Inj IV 4 mg Q8H PRN Administration Nausea And Vomiting Quetiapine Fumarate 200 mg 05/09/21 22:00 05/15/21 10:04 Quetiapine 200 Mg Tab PO 200 mg BID RISHI Administration Senna/Docusate Sodium 1 tab 05/05/21 22:00 05/15/21 10:04 Sennosides/Docusate Sodium 8.6/50 Mg Tab FEEDTUBE 1 tab BID RISHI Administration Sodium Chloride 10 ml 05/04/21 22:00 05/15/21 10:04 Sodium Chloride 0.9% 10 Ml Flush Syringe IV 10 ml BID RISHI Administration Sodium Chloride 10 ml 05/04/21 12:34 05/06/21 13:59 Sodium Chloride 0.9% 10 Ml Flush Syringe IV 10 ml PRN PRN Administration LINE FLUSH Sodium Chloride 10 ml 05/09/21 09:46 Sodium Chloride 0.9% 50 Ml Ivpb IV PRN PRN FLUSH
[2021-05-15] MEDS: amLODIPine 10 MG TAB FEEDTUBE SCH (17:45)
[2021-05-16] MEDS: HEPARIN/ 0.45% NACL DRIP 25,000 UNIT/500 ML BAG IV SCH ×2 (03:43→20:29)
[2021-05-16] MEDS: D5W/0.9% NACL 1,000 ML IV SCH (03:43)
[2021-05-16] MEDS: hydrALAZINE 25 MG TAB PO SCH ×2 (05:37→15:04)
[2021-05-16] MEDS: PIPERACILLIN/TAZOBACTAM 3.375 3.375 GM/50 ML BAG IV SCH ×2 (06:06→15:04)
[2021-05-16] MEDS: chlordiazePOXIDE 25 MG CAP PO SCH ×3 (06:07→22:48)
[2021-05-16] MEDS: hydrALAZINE 20 MG/1 ML INJ IV PRN (08:35)
[2021-05-16] MEDS: METOPROLOL TARTRATE 50 MG TAB FEEDTUBE SCH ×3 (08:37→20:31)
[2021-05-16] MEDS ORDERED: ROCURONIUM 50 MG/5 ML INJ IV ONE (08:43)
[2021-05-16] MEDS ORDERED: SUCCINYLCHOLINE CHLORIDE 200 MG/10 ML INJ MDV ONE (08:43)
[2021-05-16] MEDS ORDERED: ETOMIDATE 20 MG/10 ML INJ IV ONE (08:43)
[2021-05-16] MEDS ORDERED: FUROSEMIDE 40 MG/4 ML INJ ONE (08:45)
--- NOTE | 2021-05-16 08:55 | XRay Report ---
CHEST 1 VIEW 05/16/2021 8:38 AM INDICATION / CLINICAL INFORMATION: resp distress. COMPARISON: 05/12/2021 FINDINGS: SUPPORT DEVICES: None. HEART / MEDIASTINUM: No significant abnormality. LUNGS / PLEURA: Diffuse bilateral pulmonary opacities of increased No pneumothorax. ADDITIONAL FINDINGS: No significant additional findings. IMPRESSION: 1. Worsening bilateral pulmonary opacities Signer Name: Master Cantu MD Signed: 05/16/2021 8:51 AM Workstation Name: [id number]
--- NOTE | 2021-05-16 09:01 | Procedure Note ---
Date of procedure: 05/16/21 - Intubation Time Out Performed: Yes Sedative: Etomidate Mg Given: 20 Paralytic: Succinylcholine Mg Given: 100 Laryngoscope: fiberoptic video scope Size: 4 ET Tube Size: 7.5 Tube Secured Depth (cm): 21 Tube Secured Location: lips Tube Placement Confirmation: visualized tube passing t, equal breath sounds bilat, no breath sounds over epi, confirmation by capnometr Patient Tolerated Procedure: well Intubation Complications: none Additional Comments: I was called to intubate patient due to diminish mental status, diaphoresis, and failure to protect airway. Dr. Barker hospitalist at bedside.
[2021-05-16] MEDS: FAMOTIDINE 20 MG/2 ML INJ IV SCH (09:18)
[2021-05-16] MEDS: dexAMETHasone 4 MG/ML VIAL IV SCH (09:18)
[2021-05-16] MEDS: SENNOSIDES/DOCUSATE SODIUM 8.6/50 MG TAB FEEDTUBE SCH ×2 (09:18→22:48)
[2021-05-16] MEDS: ASPIRIN 81 MG TAB CHEW PO SCH (09:18)
[2021-05-16] MEDS: amLODIPine 10 MG TAB FEEDTUBE SCH (09:18)
[2021-05-16] MEDS: FREE WATER PO SCH ×5 (09:19→22:51)
[2021-05-16] MEDS: QUEtiapine 200 MG TAB PO SCH ×2 (09:21→22:48)
--- NOTE | 2021-05-16 09:32 | Progress Note ---
Subjective Date of service: 05/16/21 Principal diagnosis: AHRF; COVID-19 infection; NSTEMI; YE; HFrEF (35-40%); Polysubstance abuse Interval history: Impression * Nonoliguric acute kidney injury --Renal ultrasound: 1.7cm mass hyperechoic mass upper pole left kidney - ?angiomyolipoma * Acute hypoxic respiratory failure * NSTEMI * COVID 19 infection * Hepatitis C * Hypertension * Anemia * Metabolic acidosis * Methamphetamine abuse * Transaminitis Plan: * Patient with stable renal function. UOP and lytes are stable. Creatinine is stable today * IVF prn as tolerated to maintain euvolemia, note non-oliguric urine output * Serum sodium stable higher, continue free water flushes with TFs * Replete K prn * Await pending serologies and urine lytes- ANCA negative, AUDRA negative, C4 WNL. C3 mildly low at 72, no change to management for now. Urine protein/creatinine minimal at 0.4g * Renal ultrasound reviewed - will need follow up CT once stable * Continue antiHTN medications * Cardiology, ICU input noted * Dose medications for renal function * Avoid potential nephrotoxins * Strict I/O Subjective Principal diagnosis: AHRF; COVID-19 infection; NSTEMI; YE; HFrEF (35-40%); Polysubstance abuse Interval history: events noted Chart, vitals, labs reviewed. Remains confused Objective - Exam Narrative Exam: Direct examination deferred in setting of COVID-19 pandemic. Primary team exam reviewed in detail Objective - Vital Signs Vital signs: Vital Signs - 12hr 05/15/21 05/15/21 05/15/21 21:44 22:00 23:00 Temperature Pulse Rate 72 74 68 Pulse Rate [ From Monitor] Respiratory 36 H 29 H Rate Blood Pressure 130/89 130/89 118/79 O2 Sat by Pulse 94 95 Oximetry 05/15/21 05/16/21 05/16/21 23:49 00:00 01:00 Temperature 98.1 F Pulse Rate 68 68 Pulse Rate [ 68 From Monitor] Respiratory 33 H 32 H Rate Blood Pressure 112/80 112/80 O2 Sat by Pulse 95 98 Oximetry 05/16/21 05/16/21 05/16/21 02:00 03:00 04:00 Temperature 98.3 F Pulse Rate 69 67 72 Pulse Rate [ 67 From Monitor] Respiratory 35 H 30 H 35 H Rate Blood Pressure 120/83 135/90 135/90 O2 Sat by Pulse 97 97 95 Oximetry 05/16/21 05/16/21 05/16/21 05:00 05:37 06:00 Temperature Pulse Rate 75 75 76 Pulse Rate [ From Monitor] Respiratory 38 H 33 H Rate Blood Pressure 154/98 153/110 159/110 O2 Sat by Pulse 97 98 Oximetry 05/16/21 05/16/21 05/16/21 07:01 08:00 08:35 Temperature 98.5 F Pulse Rate 78 70 72 Pulse Rate [ From Monitor] Respiratory 30 H Rate Blood Pressure 182/113 200/103 O2 Sat by Pulse 95 Oximetry 05/16/21 05/16/21 05/16/21 08:37 09:06 09:18 Temperature Pulse Rate 78 98 H 92 H Pulse Rate [ From Monitor] Respiratory Rate Blood Pressure 215/130 134/88 134/88 O2 Sat by Pulse 100 Oximetry - Lab 05/15/21 07:26 05/15/21 07:26 Most recent lab results ABG pH 7.456 pH Units (7.350-7.450) H 05/13/21 11:15 ABG pCO2 36.5 mm Hg 05/13/21 11:15 ABG pO2 106.0 mm Hg (80.0-90.0) H 05/13/21 11:15 ABG HCO3 25.2 mmol/L (20.0-26.0) 05/13/21 11:15 ABG O2 Saturation 98.0 % (95.0-99.0) 05/13/21 11:15 Calcium 8.7 mg/dL (8.4-10.2) 05/15/21 07:26 Phosphorus 4.00 mg/dL (2.5-4.5) 05/14/21 15:44 Magnesium 2.00 mg/dL (1.7-2.3) 05/14/21 15:44 Urine Creatinine 100.8 mg/dL (0.1-20.0) H 05/10/21 11:03 Urine Sodium 61 mmol/L 05/05/21 09:57 Urine Total Protein 42 mg/dL (5-11.8) H 05/10/21 11:03 Medications & Allergies - Medications Allergies/Adverse Reactions: Allergies No Known Allergies Allergy (Verified 05/08/21 07:47) Home Medications: Home Medications Medication Instructions Recorded Confirmed Last Taken Type Cefpodoxime Proxetil 200 mg PO Q12H #10 tablet 09/11/20 Unknown Rx Famotidine [Pepcid] 20 mg PO BID #30 tablet 04/13/21 Unknown Rx Losartan [Cozaar] 100 mg PO QDAY #60 tablet 04/13/21 Unknown Rx Metoprolol Xl [Metoprolol 25 mg PO QDAY #30 tablet 04/13/21 Unknown Rx SUCCINATE ER TAB] NIFEdipine XL [Procardia Xl] 60 mg PO Q12HR #60 tablet 04/13/21 Unknown Rx hydrALAZINE [Apresoline TAB] 50 mg PO Q8HR #180 tablet 04/13/21 Unknown Rx Active Medications: Generic Name Dose Route Start Last Admin Trade Name Freq PRN Reason Stop Dose Admin Acetaminophen 650 mg 05/04/21 12:34 05/11/21 11:24 Acetaminophen 325 Mg Tab PO 650 mg Q4H PRN Administration Pain MILD(1-3)/Fever >100.5/MARIA Acetaminophen 650 mg 05/07/21 16:00 05/11/21 16:25 Acetaminophen [address] 650 mg Q4H PRN Administration Pain, Mild (1-3) Amlodipine Besylate 10 mg 05/15/21 11:00 05/16/21 09:18 Amlodipine 10 Mg Tab FEEDTUBE 10 mg QDAY RISHI Administration Aspirin 81 mg 05/06/21 14:00 05/16/21 09:18 Aspirin 81 Mg Tab Chew PO 81 mg QDAY RISHI Administration Atorvastatin Calcium 40 mg 05/09/21 22:00 05/15/21 21:43 Atorvastatin 40 Mg Tab FEEDTUBE 40 mg QHS RISHI Administration Chlordiazepoxide HCl 75 mg 05/11/21 15:00 05/16/21 06:07 Chlordiazepoxide 25 Mg Cap PO 75 mg Q8H RISHI Administration Dexamethasone 8 mg 05/08/21 12:00 05/16/21 09:18 Dexamethasone 4 Mg/Ml Vial IV 05/17/21 10:01 8 mg Q24HR RISHI Administration Dextrose 0 ml 05/09/21 10:49 05/14/21 06:55 Dextrose 10% *Hypoglycemia IV 250 ml PRN PRN Administration Hypoglycemia Famotidine 20 mg 05/14/21 10:00 05/16/21 09:18 Famotidine 20 Mg/2 Ml Inj IV 20 mg QDAY RISHI Administration Haloperidol Lactate 5 mg 05/09/21 18:32 05/15/21 20:18 Haloperidol Lactate 5 Mg/1 Ml Inj IV 5 mg Q6H PRN Administration Agitation Heparin Sodium (Porcine) 3,000 unit 05/11/21 14:14 Heparin 10,000 Units/10 Ml Vial IV Q6H PRN Anti-Xa Assay < 0.1 units/ml Hydralazine HCl 50 mg 05/04/21 14:00 05/16/21 05:37 Hydralazine 25 Mg Tab PO 50 mg Q8HR RISHI Administration Hydralazine HCl 10 mg 05/07/21 16:16 05/16/21 08:35 Hydralazine 20 Mg/1 Ml Inj IV 10 mg Q2H PRN Administration Blood Pressure Hydrophilic Ointment 1 applic 05/05/21 15:21 Lip Therapy Vaseline TP Q2HR PRN Dry Lips Heparin Sodium/Sodium Chloride 25,000 unit in 500 mls @ 24 mls/hr 05/11/21 15:00 05/16/21 07:32 Heparin/ 0.45% Nacl-25,000 Unit/500 Ml IV 1,550 units/hr TITR RISHI 31 mls/hr Titration Protocol 1,200 UNITS/HR Piperacillin Sod/Tazobactam Sod 3.375 gm in 50 mls @ 100 mls/hr 05/13/21 15:00 05/16/21 06:06 Zosyn/Ns 3.375gm/50ml IV 05/18/21 07:29 100 mls/hr Q8H RISHI Administration Protocol Dextrose/Sodium Chloride 1,000 mls @ 100 mls/hr 05/14/21 01:00 05/16/21 03:43 D5ns IV 100 mls/hr DIRECT RISHI Administration Insulin Human Lispro 0 unit 05/10/21 09:40 05/12/21 16:49 Insulin Lispro 100 Unit/Ml SUB-Q 2 unit Q6HR PRN Administration Hyperglycemia Protocol Labetalol HCl 10 mg 05/15/21 10:24 Labetalol 20 Mg/4 Ml Inj IV Q4H PRN sbp> 160. Metoprolol Tartrate 50 mg 05/10/21 14:00 05/16/21 08:37 Metoprolol Tartrate 50 Mg Tab FEEDTUBE 50 mg TID RISHI Administration Multi-Ingred Cream/Lotion/Oil/Oint 1 applic 05/05/21 15:21 Mineral Oil/Petrolatum, White Ophth Oint 3.5 Gm OU Q4HR PRN Dry Eye(s) Ondansetron HCl 4 mg 05/04/21 12:34 05/04/21 21:51 Ondansetron 4 Mg/2 Ml Inj IV 4 mg Q8H PRN Administration Nausea And Vomiting Quetiapine Fumarate 200 mg 05/09/21 22:00 05/16/21 09:21 Quetiapine 200 Mg Tab PO 200 mg BID RISHI Administration Senna/Docusate Sodium 1 tab 05/05/21 22:00 05/16/21 09:18 Sennosides/Docusate Sodium 8.6/50 Mg Tab FEEDTUBE 1 tab BID RISHI Administration Sodium Chloride 10 ml 05/04/21 22:00 05/16/21 09:21 Sodium Chloride 0.9% 10 Ml Flush Syringe IV 10 ml BID RISHI Administration Sodium Chloride 10 ml 05/04/21 12:34 05/06/21 13:59 Sodium Chloride 0.9% 10 Ml Flush Syringe IV 10 ml PRN PRN Administration LINE FLUSH Sodium Chloride 10 ml 05/09/21 09:46 Sodium Chloride 0.9% 50 Ml Ivpb IV PRN PRN FLUSH
[2021-05-16] MEDS ORDERED: fentaNYL 100 MCG/2 ML INJ IV PRN (09:56)
--- NOTE | 2021-05-16 10:12 | Event Note ---
Date: 05/16/21 Paged about patient in regards to respiratory distress. Upon my arrival, patient O2 saturation 66%. He appeared diaphoretic, mentation was altered, did not appear to be protecting airway on my evaluation. RN reported patient recieved Haldol x 2 overnight due to aggitation. Lung exam demonstrated bilateral rales. Bedside monitor demonstrated sinus tachycardia 111, elevated BP 200's systolic. Stat CXR demonstrated worseninig of interstitial infiltrates. Called ED physician Dr. Melendez for assistance with intubation due to concerns for difficult airway as patient had been intubated before. Patient successfully intubated saturation improved to 100%. Ordered 40 mg IV lasix. Will re-assess and see if patient needs additional BP control. Notified Dr. Lee regarding patient status.
--- NOTE | 2021-05-16 10:13 | Progress Note ---
Assessment and Plan Assessment and plan: Interval history: This is a 56-year-old male with a nicotine abuse, A. fib, hypertension, and chronic medication noncompliance and homelessness who presented to emergency department on 05/04 with complaints of dyspnea on exertion for the past month worsening over the past 3 days, intermittent left-sided chest tightness with activity, and persistent cough without fever. Work-up in the emergency department revealed anemia, hyponatremia, elevated BUN/creatinine and transaminitis. Patient was admitted to the hospitalist service with acute kidney injury and accelerated hypertension. Hospital course to date 05/04/2021. 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 However, patient with elevated creatinine therefore will hold off on cath evaluation. Nephrology consultation for acute kidney injury. Etiology likely secondary to vasomotor nephropathy/dehydration. We will start IV fluid hydration. Check renal ultrasound to rule out obstructive uropathy. We will resume home medications for the accelerated hypertension 05/05/2021. Echocardiogram reveals EF 35-40% with moderate concentric left ventricular hypertrophy. Moderate global hypokinesis of left ventricle. Mild mitral regurgitation. Mild pulmonary hypertension. Troponins are believed to be elevated in the setting of acute kidney injury. No beta-blockers due to cocaine use continue heparin and nitro drip. Continue CIWA protocol. Await urine studies 05/06/2021. Patient decompensated yesterday with worsening respiratory failure and difficulty to protect airway. Patient was breathing sonorously, and hypoxic. Patient was intubated and currently is on mechanical ventilation. Patient with AC mode ventilation rate of 20, tidal volume 450, FiO2 40% and PEEP of 6. COVID PCR testing on 05/05/2021 was found to be positive. Echocardiogram completed on this admission shows worsening EF from August 2020. Echocardiogram now reveals moderate concentric left ventricular hypertrophy with moderate global hypokinesis and EF of 35-40%. Mild pulmonary hypertension. 05/08: Continue current management, renal stable, LFTs stable and if improved will start on statin therapy. 05/09: Patient is febrile, will panculture, PSV today. CRP pending. Mucoid discharge noted from meatus which was sent for culture. Hypernatremia persists, free water flushes increased 05/10: PSV trial per [facility], T-max 102.3, given mildly elevated procalcitonin started on ceftriaxone 2 g every 24 for 2 days per ID. Overnight patient had atrial fibrillation which was treated with Cardizem drip and converted to sinus rhythm. Metoprolol p.o. increased to 3 times daily. 05/11: Patient still running fevers and if still febrile tomorrow will escalate to cefepime per ID as he is currently on ceftriaxone, CCM attempted PSV but patient became agitated and was switched back to pressure control. Lower extremity ultrasound shows acute DVT and started on heparin drip. Started on scheduled Librium. Patient remains with hypernatremia and elevated creatinine and on IV fluids. Free water flushes adjusted. Started on vancomycin today 05/12: Patient placed on pressure support trial without fentanyl, hypernatremia improving, hyperkalemia noted. Slight improvement to renal function. 05/13: Patient was extubated today, ID change antibiotics to Zosyn for Enterococcus, was started tapering Librium in the morning, renal function slightly improved. Possible transfer to floor tomorrow. ST evaluation for swallow ordered. 05/14: Patient became hypoglycemic overnight and started on dextrose IV fluids. Accu-Chek fingersticks have been low but on a.m. BMP patient blood glucose is 100. Other BMP pending. Feeding tube replaced due to need for enteral access and patient being severely confused. Renal functions remains the same. Upon confirmation will restart tube feedings, p.o. medications and free water flushes. 05/15: Remains confused/somnolent on my encounter. [facility] Remains hypertensive. Added amlodipine 10 mg NG and labetalol prn. ST eval today but doubt he will participate. Potassium replaced. Renal function improving overall, however, hypernatremic. Inc TF FWF to 250 cc q4hr. 05/16: Respiratory distress this AM, hypoxic in 60's not protecting airway. Required intubation, patient now ICU patient. Reduce fluid to FWF only, IVF d/c off jun. CXR ordered demonstrates pulmonary edema. Lasix 40 mg IV bid ordered. Troponin elevated, continue heparin gtt. Would recommend decreasing sedating medications at this point, agree with librium taper. A/P Acute hypoxic respiratory failure (worsened) -[facility] consulted, appreciate recommendations -Intubated on 05/05 with 7.50 ETT at 20 over the lips in the ED and extubated 05/13 -Reintubated on 05/16 -05/16 CXR increased BL interstitial opacities -Pulmonary perfusion study showed low probability of pulmonary embolism Severe COVID-19 pneumonia/leukocytosis, Enterococcus in urine -Infectious disease consulted, appreciate recommendations -COVID-19 PCR positive -Continue droplet/precautions -Not a candidate for remdesivir given acute kidney injury -Dexamethasone for 10 days -Anticoagulation per hospital protocol -Trend COVID-19 from 2 markers (ferritin, D-dimer, CRP, LDH) -Vanco d/t Enterococcus in urine, ceftriaxone (05/10-05/13) -changed to zosyn per ID -Follow-up for speciation -GC negative Acute DVT -Bilateral lower extremity Doppler ultrasound shows acute DVT -Heparin drip -No bolus -adjust per protocol Acute kidney injury likely secondary to vasomotor nephropathy -Nephrology consulted, appreciate recommendations -s/p IVF -Avoid nephrotoxic medications -Renally dose medication -Strict intake and output -FeNa indicates prerenal -Renal ultrasound completed: 1.7 hyper echoic mass within the left upper pole -Monitor follow-up with CT once stable Hypernatremia (resolved), hyperchloremia, metabolic acidosis (resolved) -s/p MIVF with half-normal saline -Trend sodium -Free water flush Metabolic encephalopathy -s/p fentanyl drip -Librium and Seroquel -Maintain sleep-wake cycle -Monitor QTC -Avoid delirium -Bilateral restraints in place for safety -May need psych consult S/p hypertensive emergency, h/o HTN -Continue BB -Blood pressure monitoring per protocol -Resume home antihypertensive regimen as tolerated Heart failure reduced EF, cardiomyopathy, NSTEMI, paroxysmal atrial fibrillation -Continue beta-sylvia and aspirin -Resume statin therapy -Cardiology consulted, appreciate recommendations -Echo 05/04/2021-EF 35 to 40%. Moderate concentric LVH. Moderate global hypokinesis of left ventricle. Mild mitral regurgitation. Mild pulmonary h ypertension. Echocardiogram reviewed (08/27/2020): LVEF is 50 to 55%. Mild to moderate concentric LVF. Severe diastolic dysfunction is present (restrictive filling). Right ventricle is mildly hypokinetic. RVSP is 48 mmHg. No valvular abnormalities. -S/p heparin drip for 24 hours -Patient had atrial fibrillation overnight on 05/10 and was treated with a Cardizem drip -Beta-sylvia increased Polysubstance abuse, tobacco abuse -UDS positive for amphetamines -We will need cessation counseling when appropriate Transaminitis, h/o hepatitis C -Renal ultrasound showed incidental finding of cholelithiasis -Trend LFTs -Continue supportive management Anemia -Trend CBC -Transfuse for hemoglobin less than 7 DVT/ GI prophylaxis -Heparin gtt -PPI The high probability of a clinically significant, sudden or life threatening deterioration of the [cardio/resp] system(s) required my full and direct attention, intervention and personal management. The aggregate critical care time was [90] minutes. This time is in addition to time spent performing reported procedures but includes the following: [x] Data Review and interpretation [x] Patient assessment and monitoring of vital signs [x] Documentation [x] Medication orders and management Disposition Plan: IMCU Total Time Spent with Patient (Minutes): 90 History Interval history: respiratory distress this AM. Patient was altered and not following commands/protecting airway. Required intubation. Hospitalist Physical - Physical exam Narrative exam: General appearance: Present: mild distress - EENT Eyes: Present: PERRL, EOM intact ENT: clear oral mucosa, dentition normal - Neck Neck: Present: normal ROM - Respiratory Respiratory effort: normal Respiratory: bilateral: diminished - Cardiovascular Rhythm: regular Heart Sounds: Present: S1 & S2. Absent: systolic murmur, diastolic murmur - Extremities Extremities: no ischemia, pulses intact, pulses symmetrical, No edema, normal temperature, normal color Peripheral Pulses: within normal limits - Abdominal General gastrointestinal: soft, non-tender, non-distended, normal bowel sounds - Integumentary Integumentary: Present: warm, dry - Psychiatric Psychiatric: agitated - Neurologic Neurologic: moves all extremities - Allied Health Allied health notes reviewed: nursing, RT, social work - Constitutional Vitals: Temp Pulse Resp BP Pulse Ox 98.5 F 92 H 30 H 134/88 100 05/16/21 08:00 05/16/21 09:18 05/16/21 07:01 05/16/21 09:18 05/16/21 09:06 General appearance: Present: mild distress HEART Score - HEART Score EKG: Non-specific Age: 45-65 Risk factors: 1-2 risk factors Troponin: Troponin T 1.400 ng/mL (0.00-0.029) H* 05/04/21 13:34 Troponin: 1-3x normal limit - Critical Actions Critical Actions: 4-6 pts:12-16.6% risk of adverse cardiac event. Should be admitted Results - Labs CBC & Chem 7: 05/16/21 10:21 05/16/21 10:21 Labs: Laboratory Last Values WBC 13.8 K/mm3 (4.5-11.0) H 05/15/21 07:26 RBC 3.32 M/mm3 (3.65-5.03) L 05/15/21 07:26 Hgb 10.0 gm/dl (11.8-15.2) L 05/15/21 07:26 Hct 31.2 % (35.5-45.6) L 05/15/21 07:26 MCV 94 fl (84-94) 05/15/21 07:26 MCH 30 pg (28-32) 05/15/21 07:26 MCHC 32 % (32-34) 05/15/21 07:26 RDW 16.0 % (13.2-15.2) H 05/15/21 07:26 Plt Count 285 K/mm3 (140-440) 05/15/21 07:26 Lymph % (Auto) 11.5 % (13.4-35.0) L 05/12/21 07:19 Oliver % (Auto) 8.2 % (0.0-7.3) H 05/12/21 07:19 Eos % (Auto) 0.1 % (0.0-4.3) 05/12/21 07:19 Baso % (Auto) 0.2 % (0.0-1.8) 05/12/21 07:19 Lymph # (Auto) 1.4 K/mm3 (1.2-5.4) 05/12/21 07:19 Oliver # (Auto) 1.0 K/mm3 (0.0-0.8) H 05/12/21 07:19 Eos # (Auto) 0.0 K/mm3 (0.0-0.4) 05/12/21 07:19 Baso # (Auto) 0.0 K/mm3 (0.0-0.1) 05/12/21 07:19 Seg Neutrophils % 80.0 % (40.0-70.0) H 05/12/21 07:19 Seg Neutrophils # 9.6 K/mm3 (1.8-7.7) H 05/12/21 07:19 PT 15.6 Sec. (12.2-14.9) H 05/11/21 14:43 INR 1.12 (0.87-1.13) 05/11/21 14:43 APTT 30.3 Sec. (24.2-36.6) 05/11/21 14:43 D-Dimer 2730.61 ng/mlDDU (0-234) H 05/12/21 07:19 Heparin Anti-Xa Level 0.21 U.I./ml (0.3-0.7) L 05/16/21 06:12 ABG pH 7.456 pH Units (7.350-7.450) H 05/13/21 11:15 ABG pCO2 36.5 mm Hg 05/13/21 11:15 ABG pO2 106.0 mm Hg (80.0-90.0) H 05/13/21 11:15 ABG HCO3 25.2 mmol/L (20.0-26.0) 05/13/21 11:15 ABG O2 Saturation 98.0 % (95.0-99.0) 05/13/21 11:15 ABG O2 Content 9.8 (0.0-44) 05/13/21 11:15 ABG Base Excess 1.2 mmol/L (-2.0-3.0) 05/13/21 11:15 ABG Hemoglobin 7.1 gm/dl (14.0-18.0) L 05/13/21 11:15 ABG Carboxyhemoglobin 1.7 % (0.0-5.0) 05/13/21 11:15 ABG Methemoglobin 0.5 % (0.0-1.5) 05/13/21 11:15 Oxyhemoglobin 95.9 % (95.0-99.0) 05/13/21 11:15 FiO2 30 % 05/13/21 11:15 Sodium 149 mmol/L (137-145) H D 05/15/21 07:26 Potassium 3.5 mmol/L (3.6-5.0) L 05/15/21 07:26 Chloride 113.2 mmol/L (98-107) H 05/15/21 07:26 Carbon Dioxide 23 mmol/L (22-30) 05/15/21 07:26 Anion Gap 16 mmol/L 05/15/21 07:26 BUN 29 mg/dL (9-20) H 05/15/21 07:26 Creatinine 1.8 mg/dL (0.8-1.3) H 05/15/21 07:26 Estimated GFR 39 ml/min 05/15/21 07:26 BUN/Creatinine Ratio 16 % 05/15/21 07:26 Glucose 113 mg/dL (75-100) H 05/15/21 07:26 POC Glucose 87 mg/dL (70-105) 05/16/21 09:00 Calcium 8.7 mg/dL (8.4-10.2) 05/15/21 07:26 Phosphorus 4.00 mg/dL (2.5-4.5) 05/14/21 15:44 Magnesium 2.00 mg/dL (1.7-2.3) 05/14/21 15:44 Ferritin 640.2 ng/mL (30.0-300.0) H 05/12/21 07:19 Total Bilirubin 0.60 mg/dL (0.1-1.2) 05/09/21 04:20 AST 20 units/L (5-40) 05/09/21 04:20 ALT 210 units/L (7-56) H 05/09/21 04:20 Alkaline Phosphatase 58 units/L (35-129) 05/09/21 04:20 Lactate Dehydrogenase 314 units/L (91-180) H 05/12/21 07:19 Total Creatine Kinase 406 units/L (55-170) H 05/04/21 08:42 Troponin T 1.400 ng/mL (0.00-0.029) H* 05/04/21 13:34 C-Reactive Protein 1.60 mg/dL (0.00-1.30) H 05/12/21 07:19 Total Protein 6.3 g/dL (6.3-8.2) 05/09/21 04:20 Albumin 2.9 g/dL (3.9-5) L 05/09/21 04:20 Albumin/Globulin Ratio 0.9 % 05/09/21 04:20 Triglycerides 144 mg/dL (2-149) 05/10/21 04:57 Cholesterol 140 mg/dL (50-199) 05/04/21 07:25 LDL Cholesterol Direct 89 mg/dL (50-130) 05/04/21 07:25 HDL Cholesterol 48 mg/dL (40-59) 05/04/21 07:25 Cholesterol/HDL Ratio 2.91 % 05/04/21 07:25 Procalcitonin 0.63 ng/mL (<0.15) 05/09/21 15:53 Urine Color Yellow (Yellow) 05/09/21 13:22 Urine Turbidity Turbid (Clear) 05/09/21 13:22 Urine pH 5.0 (5.0-7.0) 05/09/21 13:22 Ur Specific Ivins 1.018 (1.003-1.030) 05/09/21 13:22 Urine Protein 100 mg/dl mg/dL (Negative) 05/09/21 13:22 Urine Glucose (UA) Neg mg/dL (Negative) 05/09/21 13:22 Urine Ketones Tr mg/dL (Negative) 05/09/21 13:22 Urine Blood Mod (Negative) 05/09/21 13:22 Urine Nitrite Neg (Negative) 05/09/21 13:22 Urine Bilirubin Neg (Negative) 05/09/21 13:22 Urine Urobilinogen < 2.0 mg/dL (<2.0) 05/09/21 13:22 Ur Leukocyte Esterase Mod (Negative) 05/09/21 13:22 Urine WBC (Auto) 25.0 /HPF (0.0-6.0) H 05/09/21 13:22 Urine RBC (Auto) 8.0 /HPF (0.0-6.0) 05/09/21 13:22 U Epithel Cells (Auto) < 1.0 /HPF (0-13.0) 05/09/21 13:22 Urine Bacteria (Auto) 1+ /HPF (Negative) 05/09/21 00:40 Uric Acid Crystals Few 05/09/21 00:40 Triple Phos Crystals 2+ 05/09/21 13:22 Amorphous Crystals Few 05/09/21 00:40 Urine Mucus Few /HPF 05/09/21 00:40 Urine Creatinine 100.8 mg/dL (0.1-20.0) H 05/10/21 11:03 Protein/Creatinin Ratio 0.42 05/10/21 11:03 Urine Sodium 61 mmol/L 05/05/21 09:57 Urine Total Protein 42 mg/dL (5-11.8) H 05/10/21 11:03 Urine Opiates Screen Negative 05/04/21 Unknown Urine Methadone Screen Negative 05/04/21 Unknown Ur Barbiturates Screen Negative 05/04/21 Unknown Ur Phencyclidine Scrn Negative 05/04/21 Unknown Ur Amphetamines Screen Positive 05/04/21 Unknown U Benzodiazepines Scrn Negative 05/04/21 Unknown Urine Cocaine Screen Negative 05/04/21 Unknown U Marijuana (THC) Screen Negative 05/04/21 Unknown Drugs of Abuse Note Disclamer 05/04/21 Unknown Immunofix Electrophor see below 05/05/21 03:40 AUDRA Screen Negative (Negative) 05/05/21 03:40 Proteinase 3 (PR3) Ab <1.0 AI (<1.0) 05/05/21 03:40 Myeloperoxidase Ab <1.0 AI (<1.0) 05/05/21 03:40 Complement C3 72 mg/dL (82-185) L 05/05/21 03:40 Complement C4 17 mg/dL (15-53) 05/05/21 03:40 Coronavirus (PCR) Positive (Negative) A 05/05/21 08:30 Hepatitis A IgM Ab Non-reactive (NonReactive) 05/05/21 03:40 Hep Bs Antigen Non-reactive (Negative) 05/05/21 03:40 Hep B Core IgM Ab Non-reactive (NonReactive) 05/05/21 03:40 Hepatitis C Antibody Reactive (NonReactive) A 05/05/21 03:40 Merino/IV: Voiding Method Indwelling Catheter Active Medications - Current Medications Current Medications: Generic Name Dose Route Start Last Admin Trade Name Freq PRN Reason Stop Dose Admin Acetaminophen 650 mg 05/04/21 12:34 05/11/21 11:24 Acetaminophen 325 Mg Tab PO 650 mg Q4H PRN Administration Pain MILD(1-3)/Fever >100.5/MARIA Acetaminophen 650 mg 05/07/21 16:00 05/11/21 16:25 Acetaminophen 650 Mg Rect Supp UT 650 mg Q4H PRN Administration Pain, Mild (1-3) Amlodipine Besylate 10 mg 05/15/21 11:00 05/16/21 09:18 Amlodipine 10 Mg Tab FEEDTUBE 10 mg QDAY RISHI Administration Aspirin 81 mg 05/06/21 14:00 05/16/21 09:18 Aspirin 81 Mg Tab Chew PO 81 mg QDAY RISHI Administration Atorvastatin Calcium 40 mg 05/09/21 22:00 05/15/21 21:43 Atorvastatin 40 Mg Tab FEEDTUBE 40 mg QHS RISHI Administration Chlordiazepoxide HCl 75 mg 05/11/21 15:00 05/16/21 06:07 Chlordiazepoxide 25 Mg Cap PO 75 mg Q8H RISHI Administration Dexamethasone 8 mg 05/08/21 12:00 05/16/21 09:18 Dexamethasone 4 Mg/Ml Vial IV 05/17/21 10:01 8 mg Q24HR RISHI Administration Dextrose 0 ml 05/09/21 10:49 05/14/21 06:55 Dextrose 10% *Hypoglycemia IV 250 ml PRN PRN Administration Hypoglycemia Famotidine 20 mg 05/14/21 10:00 05/16/21 09:18 Famotidine 20 Mg/2 Ml Inj IV 20 mg QDAY RISHI Administration Fentanyl 50 mcg 05/16/21 09:56 Fentanyl 100 Mcg/2 Ml Inj IV Q10MIN PRN ANALGESIA Haloperidol Lactate 5 mg 05/09/21 18:32 05/15/21 20:18 Haloperidol Lactate 5 Mg/1 Ml Inj IV 5 mg Q6H PRN Administration Agitation Heparin Sodium (Porcine) 3,000 unit 05/11/21 14:14 Heparin 10,000 Units/10 Ml Vial IV Q6H PRN Anti-Xa Assay < 0.1 units/ml Hydralazine HCl 50 mg 05/04/21 14:00 05/16/21 05:37 Hydralazine 25 Mg Tab PO 50 mg Q8HR RISHI Administration Hydralazine HCl 10 mg 05/07/21 16:16 05/16/21 08:35 Hydralazine 20 Mg/1 Ml Inj IV 10 mg Q2H PRN Administration Blood Pressure Hydrophilic Ointment 1 applic 05/05/21 15:21 Lip Therapy Vaseline TP Q2HR PRN Dry Lips Heparin Sodium/Sodium Chloride 25,000 unit in 500 mls @ 24 mls/hr 05/11/21 1 5:00 05/16/21 07:32 Heparin/ 0.45% Nacl-25,000 Unit/500 Ml IV 1,550 units/hr TITR RISHI 31 mls/hr Titration Protocol 1,200 UNITS/HR Piperacillin Sod/Tazobactam Sod 3.375 gm in 50 mls @ 100 mls/hr 05/13/21 15:00 05/16/21 06:06 Zosyn/Ns 3.375gm/50ml IV 05/18/21 07:29 100 mls/hr Q8H RISHI Administration Protocol Dextrose/Sodium Chloride 1,000 mls @ 100 mls/hr 05/14/21 01:00 05/16/21 03:43 D5ns IV 100 mls/hr DIRECT RISHI Administration Fentanyl Citrate 2,000 mcg in 100 mls @ 4.082 mls/hr 05/16/21 10:00 Fentanyl Drip Premix IV TITR RISHI Protocol 1 MCG/KG/HR Insulin Human Lispro 0 unit 05/10/21 09:40 05/12/21 16:49 Insulin Lispro 100 Unit/Ml SUB-Q 2 unit Q6HR PRN Administration Hyperglycemia Protocol Labetalol HCl 10 mg 05/15/21 10:24 Labetalol 20 Mg/4 Ml Inj IV Q4H PRN sbp> 160. Metoprolol Tartrate 50 mg 05/10/21 14:00 05/16/21 08:37 Metoprolol Tartrate 50 Mg Tab FEEDTUBE 50 mg TID RISHI Administration Multi-Ingred Cream/Lotion/Oil/Oint 1 applic 05/05/21 15:21 Mineral Oil/Petrolatum, White Ophth Oint 3.5 Gm OU Q4HR PRN Dry Eye(s) Ondansetron HCl 4 mg 05/04/21 12:34 05/04/21 21:51 Ondansetron 4 Mg/2 Ml Inj IV 4 mg Q8H PRN Administration Nausea And Vomiting Quetiapine Fumarate 200 mg 05/09/21 22:00 05/16/21 09:21 Quetiapine 200 Mg Tab PO 200 mg BID RISHI Administration Senna/Docusate Sodium 1 tab 05/05/21 22:00 05/16/21 09:18 Sennosides/Docusate Sodium 8.6/50 Mg Tab FEEDTUBE 1 tab BID RISHI Administration Sodium Chloride 10 ml 05/04/21 22:00 05/16/21 09:21 Sodium Chloride 0.9% 10 Ml Flush Syringe IV 10 ml BID RISHI Administration Sodium Chloride 10 ml 05/04/21 12:34 05/06/21 13:59 Sodium Chloride 0.9% 10 Ml Flush Syringe IV 10 ml PRN PRN Administration LINE FLUSH Sodium Chloride 10 ml 05/09/21 09:46 Sodium Chloride 0.9% 50 Ml Ivpb IV PRN PRN FLUSH Nutrition/Malnutrition Assess - Dietary Evaluation Nutrition/Malnutrition Findings: Nutrition Notes Start: 05/05/21 16:15 Freq: Status: Active Protocol: Document 05/11/21 16:30 MORALES (Rec: 05/11/21 16:40 MORALES [id number]) Nutrition Notes Initial or Follow up Brief Note Current Diet TF-Promote @ 60 ml/hr (since D 05/09). Height 5 ft 7 in Weight 81.647 kg [place] Body Weight (kg) 67.27 BMI 28.1 Weight change and time frame No body weight change in 2 days reported. Weight Status Overweight Subjective/Other Information RD consult for routine F/U on TF tolerance. TF continues as prescribed well tolerated. Pt continues on mechanical ventilation. Percent of energy/protein needs met: Prescribed Promote @ 60 ml/hr provides for energy/protein needs (1,444 Kcal/90 g) during LOS, 75% Kcal; 90% AA. #1 Nutrition Diagnosis Inadequate oral intake Diagnosis Progress(for reassessment Continues documentation) Is patient on ventilator? Yes Is Patient Ambulatory and/or Out of Bed No REE-([facility]-confined to bed) 1533.608 Calculation Used for Recommendations 70-80% of EEN Additional Notes 15-20 Kcal/Kg ABW. Protein: 1.2-2 g/Kg; 100-164 g /day. Fluids: 1 ml/Kcal, or as per MD. Nutrition Intervention Nutrition Support: Continue Promote @ 60 ml/hr. Flush: 120 ml water Q 4 hr, or as per MD. Kcal 1,444 Protein (gm) 90 Carbohydrates (gm) 188 Fat (gm) 38 Fluid (mL) 1,212 Fiber (gm) 0 % RDI: 75% Kcal; 90% AA. Goal #1 Provide at least 75% of energy /protein needs through Enteral Feeding during LOS. Follow-Up By: 05/16/21 Additional Comments Continue monitoring TF tolerance and BM.
[2021-05-16] MEDS: fentaNYL DRIP Premix 2,000 MCG/100 ML BAG IV SCH (10:43)
--- NOTE | 2021-05-16 10:57 | Progress Note ---
Assessment and Plan Acute hypoxic resp failure on MVS COVID positive NSTEMI Acute kidney injury Cardiomyopathy EF 35-40% History of hepatitis C Elevated D-dimer. Low probability for PE seen on VQ scan Tobacco abuse Polysubstance abusepatient with positive methamphetamines and has a history of cocaine use Anemia - Stop IVF (Acute Pulmonary edema likely) - Lasix 40 mg IV q12h X 2 doses - follow electrolytes / I's & O's - continue Librium - continue IV Heparin re: VTE (Transition to oral agent) - complete AB's per ID recommendations - continue to adjust anxiolytics / CIWA protocol - continue care as below otherwise; - Daily SAT and SBT assessment as tolerated - continue to wean supplemental oxygen for target O2 sat's > 90% acutely - VAP bundle addressed - continue lung protective strategies - continue bronchodilators with pulmonary hygiene per RT - wean per pulmonary driven protocols otherwise - avoid nephrotoxins, renally dose all medications - AB's per ID recommendations - continue accuchecks with glycemic control per SSI (While critically ill target blood glucose of 140-180 mg/dL; avoid hypoglycemia) - sedation prn for target RASS 0 to -1 - continue to avoid benzodiazepine's, reduce the possibility of delirium - prn analgesia per CPOT score - Maintenance of sleep-wake cycle, avoid delirium - continue enteral nutritional support at goal rate as tolerated - G.I. & VTE prophylaxis - PT/OT/ROM exercises - continue mobility protocols for pressure ulcer prophylaxis - Monitor hemodynamics closely - continue other care per attending / other consultants - discharge planning ongoing concurrently COVID SPECIFIC INTERVENTIONS - Appears to have incidental COVID infection- Remdesivir not administered secondary to renal failure - continue systemic steroids for severe COVID-19 infection empirically (Dexamethasone) - follow repeat COVID tests results - zinc and vitamin C supplementation - Monitor inflammatory markers per facility protocol - ferritin, Ddimer, CRP - therapeutic anticoagulation per system Protocol based on d-dimer and clinical considerations (on therapeutic heparin for NSTEMI) - Continue contact and airborne isolation .... Re-evaluate in am & prn CONDITION: CRITICAL PROGNOSIS: GUARDED CODE STATUS: FULL CODE The high probability of a clinically significant, sudden or life-threatening deterioration of the [respiratory, cardiovascular & neurologic] system(s) req uired my full and direct attention, intervention and personal management. The aggregate critical care time was [35] minutes without overlap. Time includes spent on; [x] Data Review and interpretation [x] Patient assessment and monitoring of vital signs [x] Documentation [x] Medication orders and management Subjective Date of service: 05/16/21 Principal diagnosis: AHRF; COVID-19 infection; NSTEMI; YE; HFrEF (35-40%); Polysubstance abuse Interval history: Patient is seen today for: Acute hypoxemic Resp failure; COVID-19 infection; NSTEMI; YE; HFrEF (35-40%); Polysubstance abuse; Anemia Seen and examined at bedside; 24hour events reviewed; nursing and respiratory care staff consulted; no adverse overnight events reported to me; resting in bed; decompensated and back on MVS; secretions increased pre-intubation; no N/V or overt aspiration reported; afebrile Objective Vital Signs - 12hr 05/15/21 05/15/21 05/16/21 23:00 23:49 00:00 Temperature 98.1 F Pulse Rate 68 68 Pulse Rate [ 68 From Monitor] Respiratory 29 H 33 H Rate Blood Pressure 118/79 112/80 O2 Sat by Pulse 95 95 Oximetry 05/16/21 05/16/21 05/16/21 01:00 02:00 03:00 Temperature Pulse Rate 68 69 67 Pulse Rate [ From Monitor] Respiratory 32 H 35 H 30 H Rate Blood Pressure 112/80 120/83 135/90 O2 Sat by Pulse 98 97 97 Oximetry 05/16/21 05/16/21 05/16/21 04:00 05:00 05:37 Temperature 98.3 F Pulse Rate 72 75 75 Pulse Rate [ 67 From Monitor] Respiratory 35 H 38 H Rate Blood Pressure 135/90 154/98 153/110 O2 Sat by Pulse 95 97 Oximetry 05/16/21 05/16/21 05/16/21 06:00 07:01 08:00 Temperature 98.5 F Pulse Rate 76 78 70 Pulse Rate [ From Monitor] Respiratory 33 H 30 H Rate Blood Pressure 159/110 182/113 O2 Sat by Pulse 98 95 Oximetry 05/16/21 05/16/21 05/16/21 08:35 08:37 09:06 Temperature Pulse Rate 72 78 98 H Pulse Rate [ From Monitor] Respiratory Rate Blood Pressure 200/103 215/130 134/88 O2 Sat by Pulse 100 Oximetry 05/16/21 09:18 Temperature Pulse Rate 92 H Pulse Rate [ From Monitor] Respiratory Rate Blood Pressure 134/88 O2 Sat by Pulse Oximetry Constitutional: asleep, appears uncomfortable, other (mildly increased respiratory effort at rest) Eyes: non-icteric ENT: oropharynx moist, other (ETT 24 cm ELIZABET) Neck: supple, no lymphadenopathy, no JVD Effort: normal Ascultation: Bilateral: diminished breath sounds, rhonchi Percussion: Bilateral: not dull Cardiovascular: regular rate and rhythm, other (S1,S2) Gastrointestinal: normoactive bowel sounds, soft, non-tender, non-distended Integumentary: normal Extremities: no cyanosis, no edema, pulses normal, no ischemia or petechiae Neurologic: non-focal exam (grossly), pupils equal and round, CN II-XII normal, motor strength normal and Psychiatric: other (sedated) CBC and BMP: 05/16/21 10:21 05/16/21 10:21 ABG, PT/INR, D-dimer: ABG ABG pH 7.456 pH Units (7.350-7.450) H 05/13/21 11:15 ABG pCO2 36.5 mm Hg 05/13/21 11:15 ABG pO2 106.0 mm Hg (80.0-90.0) H 05/13/21 11:15 ABG O2 Saturation 98.0 % (95.0-99.0) 05/13/21 11:15 PT/INR, D-dimer PT 15.6 Sec. (12.2-14.9) H 05/11/21 14:43 INR 1.12 (0.87-1.13) 05/11/21 14:43 D-Dimer 2730.61 ng/mlDDU (0-234) H 05/12/21 07:19 Abnormal lab findings: Abnormal Labs 05/04/21 05/04/21 05/04/21 07:25 07:25 07:25 WBC 12.9 H RBC 3.04 L Hgb 9.5 L Hct 28.4 L MCV RDW 15.4 H Lymph % (Auto) 11.4 L [place] % (Auto) 10.1 H Lymph # (Auto) [place] # (Auto) 1.3 H Seg Neutrophils % 78.0 H Seg Neutrophils # 10.0 H PT 15.1 H D-Dimer Heparin Anti-Xa Level ABG pH ABG pO2 ABG Base Excess ABG Hemoglobin Sodium 135 L Potassium Chloride Carbon Dioxide BUN 65 H Creatinine 3.4 H Glucose 118 H POC Glucose Calcium Ferritin Total Bilirubin 1.50 H AST 519 H ALT 475 H Lactate Dehydrogenase Total Creatine Kinase Troponin T 1.300 H* C-Reactive Protein Albumin Urine WBC (Auto) Urine Creatinine Urine Total Protein Complement C3 Coronavirus (PCR) Hepatitis C Antibody 05/04/21 05/04/21 05/04/21 07:25 08:42 08:42 WBC RBC Hgb Hct MCV RDW Lymph % (Auto) [place] % (Auto) Lymph # (Auto) [place] # (Auto) Seg Neutrophils % Seg Neutrophils # PT D-Dimer 579.49 H Heparin Anti-Xa Level ABG pH ABG pO2 ABG Base Excess ABG Hemoglobin Sodium Potassium Chloride Carbon Dioxide BUN Creatinine Glucose POC Glucose Calcium Ferritin Total Bilirubin AST ALT Lactate Dehydrogenase Total Creatine Kinase 406 H Troponin T 1.230 H* C-Reactive Protein Albumin Urine WBC (Auto) Urine Creatinine Urine Total Protein Complement C3 Coronavirus (PCR) Hepatitis C Antibody 05/04/21 05/04/21 05/04/21 10:13 13:34 18:14 WBC RBC Hgb 8.8 L Hct 26.6 L MCV RDW Lymph % (Auto) [place] % (Auto) Lymph # (Auto) [place] # (Auto) Seg Neutrophils % Seg Neutrophils # PT D-Dimer Heparin Anti-Xa Level < 0.10 L ABG pH ABG pO2 ABG Base Excess ABG Hemoglobin Sodium Potassium Chloride Carbon Dioxide BUN Creatinine Glucose POC Glucose Calcium Ferritin Total Bilirubin AST ALT Lactate Dehydrogenase Total Creatine Kinase Troponin T 1.400 H* C-Reactive Protein Albumin Urine WBC (Auto) Urine Creatinine Urine Total Protein Complement C3 Coronavirus (PCR) Hepatitis C Antibody 05/05/21 05/05/21 05/05/21 03:40 03:40 03:40 WBC RBC Hgb Hct MCV RDW Lymph % (Auto) [place] % (Auto) Lymph # (Auto) [place] # (Auto) Seg Neutrophils % Seg Neutrophils # PT D-Dimer Heparin Anti-Xa Level 0.11 L ABG pH ABG pO2 ABG Base Excess ABG Hemoglobin Sodium Potassium 3.3 L Chloride Carbon Dioxide BUN 59 H Creatinine 2.6 H Glucose 139 H POC Glucose Calcium Ferritin Total Bilirubin AST ALT Lactate Dehydrogenase Total Creatine Kinase Troponin T C-Reactive Protein Albumin Urine WBC (Auto) Urine Creatinine Urine Total Protein Complement C3 Coronavirus (PCR) Hepatitis C Antibody Reactive A 05/05/21 05/05/21 05/05/21 03:40 08:30 09:57 WBC RBC Hgb Hct MCV RDW Lymph % (Auto) [place] % (Auto) Lymph # (Auto) [place] # (Auto) Seg Neutrophils % Seg Neutrophils # PT D-Dimer Heparin Anti-Xa Level ABG pH ABG pO2 ABG Base Excess ABG Hemoglobin Sodium Potassium Chloride Carbon Dioxide BUN Creatinine Glucose POC Glucose Calcium Ferritin Total Bilirubin AST ALT Lactate Dehydrogenase Total Creatine Kinase Troponin T C-Reactive Protein Albumin Urine WBC (Auto) Urine Creatinine 100.8 H Urine Total Protein Complement C3 72 L Coronavirus (PCR) Positive A Hepatitis C Antibody 05/05/21 05/05/21 05/05/21 11:28 17:00 19:51 WBC RBC Hgb Hct MCV RDW Lymph % (Auto) [place] % (Auto) Lymph # (Auto) [place] # (Auto) Seg Neutrophils % Seg Neutrophils # PT D-Dimer Heparin Anti-Xa Level 0.10 L 0.22 L ABG pH 7.304 L ABG pO2 140.8 H ABG Base Excess -2.1 L ABG Hemoglobin 10.2 L Sodium Potassium Chloride Carbon Dioxide BUN Creatinine Glucose POC Glucose Calcium Ferritin Total Bilirubin AST ALT Lactate Dehydrogenase Total Creatine Kinase Troponin T C-Reactive Protein Albumin Urine WBC (Auto) Urine Creatinine Urine Total Protein Complement C3 Coronavirus (PCR) Hepatitis C Antibody 05/06/21 05/06/21 05/06/21 03:47 06:15 17:53 WBC RBC Hgb 9.0 L Hct 27.8 L MCV RDW Lymph % (Auto) [place] % (Auto) Lymph # (Auto) [place] # (Auto) Seg Neutrophils % Seg Neutrophils # PT D-Dimer Heparin Anti-Xa Level 0.10 L ABG pH ABG pO2 143.5 H ABG Base Excess -2.4 L ABG Hemoglobin 6.9 L Sodium Potassium Chloride Carbon Dioxide BUN Creatinine Glucose POC Glucose Calcium Ferritin Total Bilirubin AST ALT Lactate Dehydrogenase Total Creatine Kinase Troponin T C-Reactive Protein Albumin Urine WBC (Auto) Urine Creatinine Urine Total Protein Complement C3 Coronavirus (PCR) Hepatitis C Antibody 05/07/21 05/07/21 05/07/21 00:07 03:22 03:45 WBC RBC Hgb Hct MCV RDW Lymph % (Auto) [place] % (Auto) Lymph # (Auto) [place] # (Auto) Seg Neutrophils % Seg Neutrophils # PT D-Dimer Heparin Anti-Xa Level < 0.10 L ABG pH ABG pO2 104.3 H ABG Base Excess -2.6 L ABG Hemoglobin 9.1 L Sodium Potassium Chloride 107.1 H Carbon Dioxide 20 L BUN 56 H Creatinine 2.9 H Glucose POC Glucose Calcium Ferritin Total Bilirubin AST ALT Lactate Dehydrogenase Total Creatine Kinase Troponin T C-Reactive Protein Albumin Urine WBC (Auto) Urine Creatinine Urine Total Protein Complement C3 Coronavirus (PCR) Hepatitis C Antibody 05/07/21 05/07/21 05/07/21 07:44 16:28 22:41 WBC RBC Hgb Hct MCV RDW Lymph % (Auto) [place] % (Auto) Lymph # (Auto) [place] # (Auto) Seg Neutrophils % Seg Neutrophils # PT D-Dimer Heparin Anti-Xa Level < 0.10 L 0.10 L < 0.10 L ABG pH ABG pO2 ABG Base Excess ABG Hemoglobin Sodium Potassium Chloride Carbon Dioxide BUN Creatinine Glucose POC Glucose Calcium Ferritin Total Bilirubin AST ALT Lactate Dehydrogenase Total Creatine Kinase Troponin T C-Reactive Protein Albumin Urine WBC (Auto) Urine Creatinine Urine Total Protein Complement C3 Coronavirus (PCR) Hepatitis C Antibody 05/08/21 05/08/21 05/08/21 03:25 04:34 07:30 WBC 12.4 H RBC 3.02 L Hgb 9.5 L Hct 29.2 L MCV 97 H RDW 16.7 H Lymph % (Auto) 8.1 L [place] % (Auto) 11.0 H Lymph # (Auto) 1.0 L [place] # (Auto) 1.4 H Seg Neutrophils % 80.1 H Seg Neutrophils # 9.9 H PT D-Dimer Heparin Anti-Xa Level ABG pH ABG pO2 139.0 H ABG Base Excess ABG Hemoglobin 8.8 L Sodium Potassium Chloride 110.5 H Carbon Dioxide BUN 59 H Creatinine 2.8 H Glucose 103 H POC Glucose Calcium Ferritin Total Bilirubin AST ALT 327 H Lactate Dehydrogenase Total Creatine Kinase Troponin T C-Reactive Protein Albumin 3.1 L Urine WBC (Auto) Urine Creatinine Urine Total Protein Complement C3 Coronavirus (PCR) Hepatitis C Antibody 05/09/21 05/09/21 05/09/21 04:10 04:20 04:20 WBC 11.7 H RBC 2.79 L Hgb 8.7 L Hct 26.5 L MCV 95 H RDW 16.2 H Lymph % (Auto) [place] % (Auto) Lymph # (Auto) [place] # (Auto) Seg Neutrophils % Seg Neutrophils # PT D-Dimer Heparin Anti-Xa Level ABG pH ABG pO2 161.6 H ABG Base Excess ABG Hemoglobin 8.3 L Sodium 151 H Potassium Chloride 114.5 H Carbon Dioxide 21 L BUN 57 H Creatinine 2.4 H Glucose POC Glucose Calcium Ferritin Total Bilirubin AST ALT 210 H Lactate Dehydrogenase Total Creatine Kinase Troponin T C-Reactive Protein Albumin 2.9 L Urine WBC (Auto) Urine Creatinine Urine Total Protein Complement C3 Coronavirus (PCR) Hepatitis C Antibody 05/09/21 05/09/21 05/09/21 09:48 09:48 13:22 WBC 11.6 H RBC 3.00 L Hgb 9.0 L Hct 28.4 L MCV RDW 15.9 H Lymph % (Auto) 5.9 L [place] % (Auto) 8.9 H Lymph # (Auto) 0.7 L [place] # (Auto) 1.0 H Seg Neutrophils % 84.3 H Seg Neutrophils # 9.8 H PT D-Dimer Heparin Anti-Xa Level ABG pH ABG pO2 ABG Base Excess ABG Hemoglobin Sodium Potassium Chloride Carbon Dioxide BUN Creatinine Glucose POC Glucose Calcium Ferritin Total Bilirubin AST ALT Lactate Dehydrogenase Total Creatine Kinase Troponin T C-Reactive Protein 8.70 H Albumin Urine WBC (Auto) 25.0 H Urine Creatinine Urine Total Protein Complement C3 Coronavirus (PCR) Hepatitis C Antibody 05/09/21 05/09/21 05/10/21 15:20 18:16 04:57 WBC RBC 2.87 L Hgb 8.8 L Hct 27.0 L MCV RDW 15.9 H Lymph % (Auto) [place] % (Auto) Lymph # (Auto) [place] # (Auto) Seg Neutrophils % Seg Neutrophils # PT D-Dimer Heparin Anti-Xa Level ABG pH ABG pO2 102.0 H ABG Base Excess -2.8 L ABG Hemoglobin 9.0 L Sodium Potassium Chloride Carbon Dioxide BUN Creatinine Glucose POC Glucose 130 H Calcium Ferritin Total Bilirubin AST ALT Lactate Dehydrogenase Total Creatine Kinase Troponin T C-Reactive Protein Albumin Urine WBC (Auto) Urine Creatinine Urine Total Protein Complement C3 Coronavirus (PCR) Hepatitis C Antibody 05/10/21 05/10/21 05/10/21 04:57 04:57 04:57 WBC RBC Hgb Hct MCV RDW Lymph % (Auto) [place] % (Auto) Lymph # (Auto) [place] # (Auto) Seg Neutrophils % Seg Neutrophils # PT D-Dimer 1546.78 H Heparin Anti-Xa Level ABG pH ABG pO2 ABG Base Excess ABG Hemoglobin Sodium 148 H Potassium Chloride 114.9 H Carbon Dioxide 21 L BUN 57 H Creatinine 2.3 H Glucose 157 H POC Glucose Calcium Ferritin 888.2 H Total Bilirubin AST ALT Lactate Dehydrogenase 289 H Total Creatine Kinase Troponin T C-Reactive Protein 6.80 H Albumin Urine WBC (Auto) Urine Creatinine Urine Total Protein Complement C3 Coronavirus (PCR) Hepatitis C Antibody 05/10/21 05/10/21 05/10/21 05:09 08:04 11:03 WBC RBC Hgb Hct MCV RDW Lymph % (Auto) [place] % (Auto) Lymph # (Auto) [place] # (Auto) Seg Neutrophils % Seg Neutrophils # PT D-Dimer Heparin Anti-Xa Level ABG pH 7.473 H ABG pO2 114.6 H ABG Base Excess ABG Hemoglobin 9.5 L Sodium Potassium Chloride Carbon Dioxide BUN Creatinine Glucose POC Glucose 152 H Calcium Ferritin Total Bilirubin AST ALT Lactate Dehydrogenase Total Creatine Kinase Troponin T C-Reactive Protein Albumin Urine WBC (Auto) Urine Creatinine 100.8 H Urine Total Protein 42 H Complement C3 Coronavirus (PCR) Hepatitis C Antibody 05/10/21 05/10/21 05/10/21 13:07 18:01 23:31 WBC RBC Hgb Hct MCV RDW Lymph % (Auto) [place] % (Auto) Lymph # (Auto) [place] # (Auto) Seg Neutrophils % Seg Neutrophils # PT D-Dimer Heparin Anti-Xa Level ABG pH ABG pO2 ABG Base Excess ABG Hemoglobin Sodium Potassium Chloride Carbon Dioxide BUN Creatinine Glucose POC Glucose 150 H 189 H 142 H Calcium Ferritin Total Bilirubin AST ALT Lactate Dehydrogenase Total Creatine Kinase Troponin T C-Reactive Protein Albumin Urine WBC (Auto) Urine Creatinine Urine Total Protein Complement C3 Coronavirus (PCR) Hepatitis C Antibody 05/10/21 05/11/21 05/11/21 Unknown 05:25 06:53 WBC RBC Hgb Hct MCV RDW Lymph % (Auto) [place] % (Auto) Lymph # (Auto) [place] # (Auto) Seg Neutrophils % Seg Neutrophils # PT D-Dimer Heparin Anti-Xa Level ABG pH ABG pO2 126.6 H ABG Base Excess ABG Hemoglobin 9.2 L Sodium 150 H Potassium Chloride 116.6 H Carbon Dioxide 21 L BUN 62 H Creatinine 2.5 H Glucose 142 H POC Glucose 163 H Calcium Ferritin Total Bilirubin AST ALT Lactate Dehydrogenase Total Creatine Kinase Troponin T C-Reactive Protein Albumin Urine WBC (Auto) Urine Creatinine Urine Total Protein Complement C3 Coronavirus (PCR) Hepatitis C Antibody 05/11/21 05/11/21 05/11/21 06:53 11:06 13:51 WBC RBC 3.07 L Hgb 9.3 L Hct 29.0 L MCV 95 H RDW 16.1 H Lymph % (Auto) [place] % (Auto) Lymph # (Auto) [place] # (Auto) Seg Neutrophils % Seg Neutrophils # PT D-Dimer Heparin Anti-Xa Level ABG pH ABG pO2 74.9 L ABG Base Excess -3.3 L ABG Hemoglobin 10.8 L Sodium Potassium Chloride Carbon Dioxide BUN Creatinine Glucose POC Glucose 145 H Calcium Ferritin Total Bilirubin AST ALT Lactate Dehydrogenase Total Creatine Kinase Troponin T C-Reactive Protein Albumin Urine WBC (Auto) Urine Creatinine Urine Total Protein Complement C3 Coronavirus (PCR) Hepatitis C Antibody 05/11/21 05/11/21 05/11/21 14:43 14:43 15:47 WBC RBC Hgb 9.2 L Hct 29.7 L MCV RDW Lymph % (Auto) [place] % (Auto) Lymph # (Auto) [place] # (Auto) Seg Neutrophils % Seg Neutrophils # PT 15.6 H D-Dimer Heparin Anti-Xa Level ABG pH ABG pO2 ABG Base Excess ABG Hemoglobin Sodium Potassium Chloride Carbon Dioxide BUN Creatinine Glucose POC Glucose 137 H Calcium Ferritin Total Bilirubin AST ALT Lactate Dehydrogenase Total Creatine Kinase Troponin T C-Reactive Protein Albumin Urine WBC (Auto) Urine Creatinine Urine Total Protein Complement C3 Coronavirus (PCR) Hepatitis C Antibody 05/12/21 05/12/21 05/12/21 00:04 05:07 07:19 WBC 11.9 H RBC 3.00 L Hgb 9.1 L Hct 28.9 L MCV 96 H RDW 16.7 H Lymph % (Auto) 11.5 L [place] % (Auto) 8.2 H Lymph # (Auto) [place] # (Auto) 1.0 H Seg Neutrophils % 80.0 H Seg Neutrophils # 9.6 H PT D-Dimer Heparin Anti-Xa Level ABG pH ABG pO2 ABG Base Excess ABG Hemoglobin Sodium Potassium Chloride Carbon Dioxide BUN Creatinine Glucose POC Glucose 121 H 117 H Calcium Ferritin Total Bilirubin AST ALT Lactate Dehydrogenase Total Creatine Kinase Troponin T C-Reactive Protein Albumin Urine WBC (Auto) Urine Creatinine Urine Total Protein Complement C3 Coronavirus (PCR) Hepatitis C Antibody 05/12/21 05/12/21 05/12/21 07:19 07:19 07:19 WBC RBC Hgb Hct MCV RDW Lymph % (Auto) [place] % (Auto) Lymph # (Auto) [place] # (Auto) Seg Neutrophils % Seg Neutrophils # PT D-Dimer 2730.61 H Heparin Anti-Xa Level ABG pH ABG pO2 ABG Base Excess ABG Hemoglobin Sodium 146 H Potassium 5.1 H Chloride 112.4 H Carbon Dioxide 21 L BUN 61 H Creatinine 2.2 H Glucose 136 H POC Glucose Calcium 8.1 L Ferritin 640.2 H Total Bilirubin AST ALT Lactate Dehydrogenase 314 H Total Creatine Kinase Troponin T C-Reactive Protein 1.60 H Albumin Urine WBC (Auto) Urine Creatinine Urine Total Protein Complement C3 Coronavirus (PCR) Hepatitis C Antibody 05/12/21 05/12/21 05/12/21 11:10 16:10 16:38 WBC RBC Hgb Hct MCV RDW Lymph % (Auto) [place] % (Auto) Lymph # (Auto) [place] # (Auto) Seg Neutrophils % Seg Neutrophils # PT D-Dimer Heparin Anti-Xa Level 0.20 L ABG pH ABG pO2 ABG Base Excess ABG Hemoglobin Sodium Potassium Chloride Carbon Dioxide BUN Creatinine Glucose POC Glucose 131 H 157 H Calcium Ferritin Total Bilirubin AST ALT Lactate Dehydrogenase Total Creatine Kinase Troponin T C-Reactive Protein Albumin Urine WBC (Auto) Urine Creatinine Urine Total Protein Complement C3 Coronavirus (PCR) Hepatitis C Antibody 05/12/21 05/13/21 05/13/21 23:30 00:12 04:20 WBC RBC Hgb Hct MCV RDW Lymph % (Auto) [place] % (Auto) Lymph # (Auto) [place] # (Auto) Seg Neutrophils % Seg Neutrophils # PT D-Dimer Heparin Anti-Xa Level 0.13 L ABG pH ABG pO2 ABG Base Excess ABG Hemoglobin Sodium Potassium Chloride 111.2 H Carbon Dioxide BUN 53 H Creatinine 1.9 H Glucose 121 H POC Glucose 115 H Calcium 8.3 L Ferritin Total Bilirubin AST ALT Lactate Dehydrogenase Total Creatine Kinase Troponin T C-Reactive Protein Albumin Urine WBC (Auto) Urine Creatinine Urine Total Protein Complement C3 Coronavirus (PCR) Hepatitis C Antibody 05/13/21 05/13/21 05/13/21 04:20 11:15 11:29 WBC 13.1 H RBC 2.86 L Hgb 8.5 L Hct 26.9 L MCV RDW 15.7 H Lymph % (Auto) [place] % (Auto) Lymph # (Auto) [place] # (Auto) Seg Neutrophils % Seg Neutrophils # PT D-Dimer Heparin Anti-Xa Level ABG pH 7.456 H ABG pO2 106.0 H ABG Base Excess ABG Hemoglobin 7.1 L Sodium Potassium Chloride Carbon Dioxide BUN Creatinine Glucose POC Glucose 121 H Calcium Ferritin Total Bilirubin AST ALT Lactate Dehydrogenase Total Creatine Kinase Troponin T C-Reactive Protein Albumin Urine WBC (Auto) Urine Creatinine Urine Total Protein Complement C3 Coronavirus (PCR) Hepatitis C Antibody 05/13/21 05/13/21 05/14/21 16:38 23:43 04:26 WBC 14.2 H RBC 3.11 L Hgb 9.4 L Hct 29.3 L MCV RDW 15.4 H Lymph % (Auto) [place] % (Auto) Lymph # (Auto) [place] # (Auto) Seg Neutrophils % Seg Neutrophils # PT D-Dimer Heparin Anti-Xa Level ABG pH ABG pO2 ABG Base Excess ABG Hemoglobin Sodium Potassium Chloride Carbon Dioxide BUN Creatinine Glucose POC Glucose 119 H 55 L Calcium Ferritin Total Bilirubin AST ALT Lactate Dehydrogenase Total Creatine Kinase Troponin T C-Reactive Protein Albumin Urine WBC (Auto) Urine Creatinine Urine Total Protein Complement C3 Coronavirus (PCR) Hepatitis C Antibody 05/14/21 05/14/21 05/14/21 04:26 05:26 06:51 WBC RBC Hgb Hct MCV RDW Lymph % (Auto) [place] % (Auto) Lymph # (Auto) [place] # (Auto) Seg Neutrophils % Seg Neutrophils # PT D-Dimer Heparin Anti-Xa Level ABG pH ABG pO2 ABG Base Excess ABG Hemoglobin Sodium Potassium 3.4 L Chloride 107.6 H Carbon Dioxide BUN 42 H Creatinine 1.9 H Glucose POC Glucose 51 L 62 L Calcium Ferritin Total Bilirubin AST ALT Lactate Dehydrogenase Total Creatine Kinase Troponin T C-Reactive Protein Albumin Urine WBC (Auto) Urine Creatinine Urine Total Protein Complement C3 Coronavirus (PCR) Hepatitis C Antibody 05/14/21 05/14/21 05/14/21 09:58 12:05 12:08 WBC RBC Hgb Hct MCV RDW Lymph % (Auto) [place] % (Auto) Lymph # (Auto) [place] # (Auto) Seg Neutrophils % Seg Neutrophils # PT D-Dimer Heparin Anti-Xa Level ABG pH ABG pO2 ABG Base Excess ABG Hemoglobin Sodium Potassium 3.4 L Chloride Carbon Dioxide BUN 36 H Creatinine 1.8 H Glucose 133 H POC Glucose 60 L 127 H Calcium Ferritin Total Bilirubin AST ALT Lactate Dehydrogenase Total Creatine Kinase Troponin T C-Reactive Protein Albumin Urine WBC (Auto) Urine Creatinine Urine Total Protein Complement C3 Coronavirus (PCR) Hepatitis C Antibody 05/14/21 05/14/21 05/15/21 17:20 23:37 05:34 WBC RBC Hgb Hct MCV RDW Lymph % (Auto) [place] % (Auto) Lymph # (Auto) [place] # (Auto) Seg Neutrophils % Seg Neutrophils # PT D-Dimer Heparin Anti-Xa Level ABG pH ABG pO2 ABG Base Excess ABG Hemoglobin Sodium Potassium Chloride Carbon Dioxide BUN Creatinine Glucose POC Glucose 144 H 115 H 119 H Calcium Ferritin Total Bilirubin AST ALT Lactate Dehydrogenase Total Creatine Kinase Troponin T C-Reactive Protein Albumin Urine WBC (Auto) Urine Creatinine Urine Total Protein Complement C3 Coronavirus (PCR) Hepatitis C Antibody 05/15/21 05/15/21 05/15/21 07:26 07:26 14:35 WBC 13.8 H RBC 3.32 L Hgb 10.0 L Hct 31.2 L MCV RDW 16.0 H Lymph % (Auto) [place] % (Auto) Lymph # (Auto) [place] # (Auto) Seg Neutrophils % Seg Neutrophils # PT D-Dimer Heparin Anti-Xa Level ABG pH ABG pO2 ABG Base Excess ABG Hemoglobin Sodium 149 H D Potassium 3.5 L Chloride 113.2 H Carbon Dioxide BUN 29 H Creatinine 1.8 H Glucose 113 H POC Glucose 143 H Calcium Ferritin Total Bilirubin AST ALT Lactate Dehydrogenase Total Creatine Kinase Troponin T C-Reactive Protein Albumin Urine WBC (Auto) Urine Creatinine Urine Total Protein Complement C3 Coronavirus (PCR) Hepatitis C Antibody 05/16/21 05/16/21 06:12 08:43 WBC RBC Hgb Hct MCV RDW Lymph % (Auto) [place] % (Auto) Lymph # (Auto) [place] # (Auto) Seg Neutrophils % Seg Neutrophils # PT D-Dimer Heparin Anti-Xa Level 0.21 L ABG pH ABG pO2 ABG Base Excess ABG Hemoglobin Sodium Potassium Chloride Carbon Dioxide BUN Creatinine Glucose POC Glucose 34 L Calcium Ferritin Total Bilirubin AST ALT Lactate Dehydrogenase Total Creatine Kinase Troponin T C-Reactive Protein Albumin Urine WBC (Auto) Urine Creatinine Urine Total Protein Complement C3 Coronavirus (PCR) Hepatitis C Antibody Chest x-ray: image reviewed (new bilateral and anastacio-hilar infiltrates) Allied health notes reviewed: nursing
[2021-05-16 11:02] LABS: Albumin 3.1 g/dL (3.9-5); Calcium 8.8 mg/dL (8.4-10.2)
[2021-05-16 11:20] LABS: Mean Corpuscular HGB Conc 30 % (32-34); Mean Corpuscular Volume 99 fl (84-94); Platelet Count 360 K/mm3 (140-440); Red Cell Distribution Width 18.1 % (13.2-15.2)
[2021-05-16 11:21] LABS: ABG Base Excess -2.6 mmol/L (-2.0-3.0); ABG HCO3 22.1 mmol/L (20.0-26.0); ABG Methemoglobin 0.5 % (0.0-1.5); ABG Oxygen Saturation 99.4 % (95.0-99.0); ABG PCO2 37.8 mm Hg; ABG PH 7.385 pH Units (7.350-7.450); ABG PO2 240.8 mm Hg (80.0-90.0)
[2021-05-16 11:21] LABS: Hematocrit 37.6 % (35.5-45.6); Hemoglobin 11.4 gm/dl (11.8-15.2)
--- NOTE | 2021-05-16 12:36 | Progress Note ---
Assessment and Plan Patient is a 56-year-old male with a past medical history of hypertension, paroxysmal SVT, medical noncompliance, smoking, substance abuse who presented to the ED with a complaint of shortness of breath and dyspnea on exertion x1 month however with significantly worsening symptoms since yesterday. NSTEMI Hypertensive Emergency COVID-19 Acute Bilateral DVT Afib YE Hepatitis C SOB Medical noncompliance Polysubstance abuse-patient tested positive for methamphetamines Echo 05/04/2021-EF 35 to 40%. Moderate concentric LVH. Moderate global hypokinesis of left ventricle. Mild mitral regurgitation. Mild pulmonary hypertension. Echocardiogram reviewed (08/27/2020): LVEF is 50 to 55%. Mild to moderate concentric LVF. Severe diastolic dysfunction is present (restrictive filling). Right ventricle is mildly hypokinetic. RVSP is 48 mmHg. No valvular abnormali ties. Plan: Patient remains in sinus rhythm Continue asa and statin Patient currenlty on heparin gtt for anticoagulation Continue metoprolol 50 mg p.o. 3 times daily Agree with hydralizine and amlodipine Patient seen in conjunction with Dr. Myers who agrees with this plan of care - Patient Problems (1) ARF (acute renal failure) Current Visit: Yes Status: Acute (2) Elevated d-dimer Current Visit: Yes Status: Acute (3) LFT elevation Current Visit: Yes Status: Acute (4) NSTEMI (non-ST elevated myocardial infarction) Current Visit: Yes Status: Acute (5) Polysubstance abuse Current Visit: Yes Status: Acute (6) SOB (shortness of breath) Current Visit: Yes Status: Acute (7) Hypertension Current Visit: Yes Status: Chronic (8) Noncompliance with medication regimen Current Visit: Yes Status: Chronic Subjective Date of service: 05/16/21 Principal diagnosis: AHRF; COVID-19 infection; NSTEMI; YE; HFrEF (35-40%); Polysubstance abuse Interval history: Patient was extubated over the weekend and transferred to [facility]. However as of this morning patient was reintubated due to respiratory failure Patient sinus rhythm 80s on monitor Objective Vital Signs Temp Pulse Pulse Resp BP Pulse Ox 05/16/21 11:01 86 35 H 119/80 100 05/16/21 10:01 85 36 H 109/79 93 05/16/21 09:18 92 H 134/88 05/16/21 09:06 98 H 134/88 100 05/16/21 09:00 93 H 20 134/88 100 05/16/21 08:37 78 215/130 05/16/21 08:35 72 200/103 05/16/21 08:01 91 H 35 H 205/120 83 L 05/16/21 08:00 98.5 F 70 98 H 42 H 100 05/16/21 07:01 78 30 H 182/113 95 05/16/21 06:00 76 33 H 159/110 98 05/16/21 05:37 75 153/110 05/16/21 05:00 75 38 H 154/98 97 05/16/21 04:00 98.3 F 72 67 35 H 135/90 95 05/16/21 03:00 67 30 H 135/90 97 05/16/21 02:00 69 35 H 120/83 97 05/16/21 01:00 68 32 H 112/80 98 05/16/21 00:00 68 68 33 H 112/80 95 05/15/21 23:49 98.1 F 05/15/21 23:00 68 29 H 118/79 95 05/15/21 22:00 74 36 H 130/89 94 05/15/21 21:44 72 130/89 05/15/21 21:00 74 35 H 162/115 98 05/15/21 20:18 162 H 162/115 05/15/21 20:00 98.7 F 70 78 40 H 156/108 97 05/15/21 19:00 67 33 H 151/105 94 05/15/21 18:10 71 27 H 151/105 96 05/15/21 18:00 71 19 151/105 99 05/15/21 17:45 72 129/96 05/15/21 17:00 70 26 H 132/91 97 05/15/21 16:00 98.0 F 73 74 36 H 132/91 95 05/15/21 15:00 77 38 H 152/104 92 05/15/21 14:51 98 H 156/104 05/15/21 14:36 75 168/100 05/15/21 14:00 79 37 H 168/130 95 05/15/21 13:00 73 35 H 150/109 97 - Physical Examination General: Other (intubated and sedated) HEENT: Positive: PERRL Neck: Positive: trachea midline Cardiac: Positive: Reg Rate and Rhythm Lungs: Positive: Ventilated Respirations Neuro: Positive: Other (sedated) Abdomen: Positive: Soft Skin: Negative: Rash, Suspicious Lesions, Ulceration Extremities: Absent: edema - Labs and Meds Cardiac Enzymes 05/16/21 Range/Units 10:21 AST 34 (5-40) units/L CBC 05/16/21 Range/Units 10:21 WBC 27.6 H (4.5-11.0) K/mm3 RBC 3.80 (3.65-5.03) M/mm3 Hgb 11.4 L (11.8-15.2) gm/dl Hct 37.6 D (35.5-45.6) % Plt Count 360 (140-440) K/mm3 Lymph # (Auto) Sort Operations Supervisor [place] # (Auto) Sort Operations Supervisor Eos # (Auto) Sort Operations Supervisor Baso # (Auto) Sort Operations Supervisor Comprehensive Metabolic Panel 05/16/21 Range/Units 10:21 Sodium 145 (137-145) mmol/L Potassium 4.7 D (3.6-5.0) mmol/L Chloride 108.8 H (98-107) mmol/L Carbon Dioxide 17 L (22-30) mmol/L BUN 26 H (9-20) mg/dL Creatinine 1.9 H (0.8-1.3) mg/dL Glucose 141 H (75-100) mg/dL Calcium 8.8 (8.4-10.2) mg/dL AST 34 (5-40) units/L ALT 51 (7-56) units/L Alkaline Phosphatase 74 (35-129) units/L Total Protein 7.4 (6.3-8.2) g/dL Albumin 3.1 L (3.9-5) g/dL - Imaging and Cardiology EKG: report reviewed, image reviewed Echo: report reviewed - Telemetry EKG Rhythm: Sinus Rhythm - EKG Sinus rhythms and dysrhythmias: sinus rhythm Ventricular dysrhythmias: ventricular premature com Chamber hypertrophy or enlargement: left ventricular hypertro - Allied health notes Allied health notes reviewed: nursing
[2021-05-16 12:59] LABS: Anisocytosis 1+; Band Neutrophils # (Manual) 0.6 K/mm3; Basophils % (Manual) 0 % (0.0-1.8); Eosinophils % (Manual) 0 % (0.0-4.3); Macrocytosis Few; Myelocytes # (Manual) 0.6 K/mm3; Platelet Clumps Few; Platelet Estimate Consistent w Auto; Total Cells Counted 100
--- NOTE | 2021-05-16 15:41 | Progress Note ---
Assessment and Plan Cultures: Blood culture 05/07/2021 no growth so far Blood culture 05/10/2021 no growth so far A/P: 56 yo M PMHx smoking, a fin, HTN, medication non-compliance #Severe COVID-19 pneumonia: Patient presented with a week of symptoms, chest x-r ay with diffuse bilateral infiltrates, admission O2 sats decreased on room air. Inflammatory markers elevated #Acute hypoxemic respiratory failure: Likely secondary to COVID-19 infection. Currently on the vent #YE: Renally dose medications Recommendations: -Dexamethasone 6 mg IV/PO daily for 10 days -Not a candidate for remdesivir -Obtain q48-72h inflammatory markers - ferritin, Ddimer, CRP, LDH -Continue Zosyn, plan 5 days though may extend if not doing better. -Anticoagulation per hospital protocol -Proning as able Thank you for the consult, we will continue to follow. Roque Bacon MD [facility] ([facility]) O: [phone] F: [phone] Subjective Date of service: 05/16/21 Principal diagnosis: AHRF; COVID-19 infection; NSTEMI; YE; HFrEF (35-40%); Polysubstance abuse Interval history: Afebrile, white count remains elevated at 27.6, acutely worse from yesterday. He is now intubated in the ICU. Imaging personally reviewed: Chest x-ray: Worsening bilateral pulmonary opacities. Objective - Exam Narrative Exam: Physical exam deferred to reduce risk of transmission of COVID-19. Please refer to primary team's note. - Constitutional Vitals: Vital Signs Temp Pulse Resp BP Pulse Ox 98.2 F 79 25 H 122/88 100 05/16/21 12:00 05/16/21 15:04 05/16/21 13:00 05/16/21 15:04 05/16/21 13:00 Temperature -Last 24 Hours Temperature 98.2 F Temperature 98.5 F Temperature 98.3 F Temperature 98.1 F Temperature 98.7 F Temperature 98.0 F - Labs CBC & Chem 7: 05/16/21 10:21 05/16/21 10:21 Labs: Abnormal lab results 05/16/21 05/16/21 05/16/21 Range/Units 06:12 08:43 10:05 WBC (4.5-11.0) K/mm3 Hgb (11.8-15.2) gm/dl MCV (84-94) fl MCHC (32-34) % RDW (13.2-15.2) % Seg Neuts % (Manual) (40.0-70.0) % Lymphocytes % (Manual) (13.4-35.0) % Monocytes % (Manual) (0.0-7.3) % Seg Neutrophils # Man (1.8-7.7) K/mm3 Lymphocytes # (Manual) (1.2-5.4) K/mm3 Monocytes # (Manual) (0.0-0.8) K/mm3 Heparin Anti-Xa Level 0.21 L (0.3-0.7) U.I./ml ABG pO2 240.8 H (80.0-90.0) mm Hg ABG O2 Saturation 99.4 H (95.0-99.0) % ABG Base Excess -2.6 L (-2.0-3.0) mmol/L ABG Hemoglobin 10.7 L (14.0-18.0) gm/dl Chloride (98-107) mmol/L Carbon Dioxide (22-30) mmol/L BUN (9-20) mg/dL Creatinine (0.8-1.3) mg/dL Glucose (75-100) mg/dL POC Glucose 34 L (70-105) mg/dL Troponin T (0.00-0.029) ng/mL Albumin (3.9-5) g/dL 05/16/21 05/16/21 05/16/21 Range/Units 10:21 10:21 13:14 WBC 27.6 H (4.5-11.0) K/mm3 Hgb 11.4 L (11.8-15.2) gm/dl MCV 99 H (84-94) fl MCHC 30 L (32-34) % RDW 18.1 H (13.2-15.2) % Seg Neuts % (Manual) 83.0 H (40.0-70.0) % Lymphocytes % (Manual) 4.0 L (13.4-35.0) % Monocytes % (Manual) 9.0 H (0.0-7.3) % Seg Neutrophils # Man 22.9 H (1.8-7.7) K/mm3 Lymphocytes # (Manual) 1.1 L (1.2-5.4) K/mm3 Monocytes # (Manual) 2.5 H (0.0-0.8) K/mm3 Heparin Anti-Xa Level (0.3-0.7) U.I./ml ABG pO2 (80.0-90.0) mm Hg ABG O2 Saturation (95.0-99.0) % ABG Base Excess (-2.0-3.0) mmol/L ABG Hemoglobin (14.0-18.0) gm/dl Chloride 108.8 H (98-107) mmol/L Carbon Dioxide 17 L (22-30) mmol/L BUN 26 H (9-20) mg/dL Creatinine 1.9 H (0.8-1.3) mg/dL Glucose 141 H (75-100) mg/dL POC Glucose (70-105) mg/dL Troponin T 0.503 H* (0.00-0.029) ng/mL Albumin 3.1 L (3.9-5) g/dL
[2021-05-16] MEDS ORDERED: FUROSEMIDE 40 MG/4 ML INJ IV SCH (22:00)
[2021-05-17] MEDS: PIPERACILLIN/TAZOBACTAM 3.375 3.375 GM/50 ML BAG IV SCH ×4 (00:53→23:57)
[2021-05-17] MEDS: hydrALAZINE 25 MG TAB PO SCH ×4 (02:31→22:16)
[2021-05-17] MEDS: FREE WATER PO SCH ×6 (02:32→22:16)
[2021-05-17 06:00] LABS: Hematocrit 28.5 % (35.5-45.6); Hemoglobin 8.8 gm/dl (11.8-15.2)
[2021-05-17 06:14] LABS: Calcium 8.7 mg/dL (8.4-10.2)
--- NOTE | 2021-05-17 06:22 | XRay Report ---
CHEST 1 VIEW INDICATION / CLINICAL INFORMATION: pulmonary edema. COMPARISON: 05/16/2021 FINDINGS: SUPPORT DEVICES: Stable positioning of feeding tube. HEART / MEDIASTINUM: Stable cardiomegaly. LUNGS / PLEURA: Both lungs appear better aerated/expanded. Previously noted bilateral pulmonary opaci ties are improving. No pneumothorax. ADDITIONAL FINDINGS: No significant additional findings. IMPRESSION: 1. Improved appearance of the chest radiograph, with improved aeration bilaterally and improved appea geo of bilateral pulmonary opacities. Signer Name: Elsa Monreal MD Signed: 05/17/2021 6:18 AM Workstation Name: [id number]
[2021-05-17] MEDS: chlordiazePOXIDE 25 MG CAP PO SCH ×3 (06:47→22:17)
[2021-05-17 07:12] LABS: ABG Base Excess 3.4 mmol/L (-2.0-3.0); ABG HCO3 27.7 mmol/L (20.0-26.0); ABG Methemoglobin 0.5 % (0.0-1.5); ABG Oxygen Saturation 99.2 % (95.0-99.0); ABG PCO2 41.1 mm Hg; ABG PH 7.447 pH Units (7.350-7.450); ABG PO2 193.7 mm Hg (80.0-90.0)
--- NOTE | 2021-05-17 08:17 | Progress Note ---
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 UOP and lytes are stable. Creatinine is noted today * IVF prn as tolerated to maintain euvolemia, note non-oliguric urine output * hold diuresis today, Na and low bp noted, hold bp meds * Serum sodium stable higher, continue free water flushes with TFs * Replete K prn * Renal ultrasound reviewed - will need follow up CT once stable * Continue antiHTN medications * Cardiology, ICU input noted * Dose medications for renal function * Avoid potential nephrotoxins * Strict I/O Subjective Principal diagnosis: AHRF; COVID-19 infection; NSTEMI; YE; HFrEF (35-40%); Polysubstance abuse Interval history: events noted Chart, vitals, labs reviewed. Remains confused Objective - Exam Narrative Exam: Direct examination deferred in setting of COVID-19 pandemic. Primary team exam reviewed in detail Objective - Vital Signs Vital signs: Vital Signs - 12hr 05/16/21 05/16/21 05/16/21 20:31 21:00 22:00 Temperature Pulse Rate 72 78 70 Pulse Rate [ From Monitor] Respiratory 45 H 20 Rate Blood Pressure 108/74 108/74 91/62 O2 Sat by Pulse 100 100 Oximetry 05/16/21 05/17/21 05/17/21 23:00 00:00 00:23 Temperature 99.4 F Pulse Rate 67 64 84 Pulse Rate [ 64 From Monitor] Respiratory 20 20 Rate Blood Pressure 113/76 102/69 102/69 O2 Sat by Pulse 100 100 100 Oximetry 05/17/21 05/17/21 05/17/21 01:00 02:00 03:00 Temperature Pulse Rate 66 65 63 Pulse Rate [ From Monitor] Respiratory 20 20 20 Rate Blood Pressure 105/71 97/68 101/69 O2 Sat by Pulse 100 100 100 Oximetry 05/17/21 05/17/2122 04:00 05:00 06:00 Temperature 97.8 F Pulse Rate 63 62 61 Pulse Rate [ 63 From Monitor] Respiratory 20 20 20 Rate Blood Pressure 111/75 103/74 110/78 O2 Sat by Pulse 100 100 100 Oximetry 05/17/21 05/17/21 05/17/21 07:00 08:00 08:05 Temperature 99.2 F Pulse Rate 63 61 64 Pulse Rate [ From Monitor] Respiratory 20 20 Rate Blood Pressure 103/74 101/71 101/71 O2 Sat by Pulse 100 100 100 Oximetry - Lab 05/17/21 04:52 05/17/21 04:52 Most recent lab results ABG pH 7.447 pH Units (7.350-7.450) 05/17/21 06:50 ABG pCO2 41.1 mm Hg 05/17/21 06:50 ABG pO2 193.7 mm Hg (80.0-90.0) H 05/17/21 06:50 ABG HCO3 27.7 mmol/L (20.0-26.0) H 05/17/21 06:50 ABG O2 Saturation 99.2 % (95.0-99.0) H 05/17/21 06:50 Calcium 8.7 mg/dL (8.4-10.2) 05/17/21 04:52 Phosphorus 4.00 mg/dL (2.5-4.5) 05/14/21 15:44 Magnesium 2.00 mg/dL (1.7-2.3) 05/14/21 15:44 Urine Creatinine 100.8 mg/dL (0.1-20.0) H 05/10/21 11:03 Urine Sodium 61 mmol/L 05/05/21 09:57 Urine Total Protein 42 mg/dL (5-11.8) H 05/10/21 11:03 Medications & Allergies - Medications Allergies/Adverse Reactions: Allergies No Known Allergies Allergy (Verified 05/08/21 07:47) Home Medications: Home Medications Medication Instructions Recorded Confirmed Last Taken Type Cefpodoxime Proxetil 200 mg PO Q12H #10 tablet 09/11/20 Unknown Rx Famotidine [Pepcid] 20 mg PO BID #30 tablet 04/13/21 Unknown Rx Losartan [Cozaar] 100 mg PO QDAY #60 tablet 04/13/21 Unknown Rx Metoprolol Xl [Metoprolol 25 mg PO QDAY #30 tablet 04/13/21 Unknown Rx SUCCINATE ER TAB] NIFEdipine XL [Procardia Xl] 60 mg PO Q12HR #60 tablet 04/13/21 Unknown Rx hydrALAZINE [Apresoline TAB] 50 mg PO Q8HR #180 tablet 04/13/21 Unknown Rx Active Medications: Generic Name Dose Route Start Last Admin Trade Name Freq PRN Reason Stop Dose Admin Acetaminophen 650 mg 05/04/21 12:34 05/11/21 11:24 Acetaminophen 325 Mg Tab PO 650 mg Q4H PRN Administration Pain MILD(1-3)/Fever >100.5/MARIA Acetaminophen 650 mg 05/07/21 16:00 05/11/21 16:25 Acetaminophen 650 Mg Rect Supp VA 650 mg Q4H PRN Administration Pain, Mild (1-3) Amlodipine Besylate 10 mg 05/15/21 11:00 05/16/21 09:18 Amlodipine 10 Mg Tab FEEDTUBE 10 mg QDAY RISHI Administration Aspirin 81 mg 05/06/21 14:00 05/16/21 09:18 Aspirin 81 Mg Tab Chew PO 81 mg QDAY RISHI Administration Atorvastatin Calcium 40 mg 05/09/21 22:00 05/16/21 22:48 Atorvastatin 40 Mg Tab FEEDTUBE 40 mg QHS RISHI Administration Chlordiazepoxide HCl 75 mg 05/11/21 15:00 05/17/21 06:47 Chlordiazepoxide 25 Mg Cap PO Not Given Q8H RISHI Dexamethasone 8 mg 05/08/21 12:00 05/16/21 09:18 Dexamethasone 4 Mg/Ml Vial IV 05/17/21 10:01 8 mg Q24HR RISHI Administration Dextrose 0 ml 05/09/21 10:49 05/14/21 06:55 Dextrose 10% *Hypoglycemia IV 250 ml PRN PRN Administration Hypoglycemia Etomidate 20 mg 05/17/21 08:43 Etomidate 20 Mg/10 Ml Inj IV 05/17/21 08:44 0843 ONE Famotidine 20 mg 05/14/21 10:00 05/16/21 09:18 Famotidine 20 Mg/2 Ml Inj IV 20 mg QDAY RISHI Administration Fentanyl 50 mcg 05/16/21 09:56 Fentanyl 100 Mcg/2 Ml Inj IV Q10MIN PRN ANALGESIA Furosemide 40 mg 05/17/21 08:45 Furosemide 40 Mg/4 Ml Inj IV 05/17/21 08:46 0845 [facility] Haloperidol Lactate 5 mg 05/09/21 18:32 05/15/21 20:18 Haloperidol Lactate 5 Mg/1 Ml Inj IV 5 mg Q6H PRN Administration Agitation Heparin Sodium (Porcine) 3,000 unit 05/11/21 14:14 Heparin 10,000 Units/10 Ml Vial IV Q6H PRN Anti-Xa Assay < 0.1 units/ml Hydralazine HCl 50 mg 05/04/21 14:00 05/17/21 06:40 Hydralazine 25 Mg Tab PO Not Given Q8HR [facility] Hydralazine HCl 10 mg 05/07/21 16:16 05/16/21 08:35 Hydralazine 20 Mg/1 Ml Inj IV 10 mg Q2H PRN Administration Blood Pressure Hydrophilic Ointment 1 applic 05/05/21 15:21 Lip Therapy Vaseline TP Q2HR PRN Dry Lips Heparin Sodium/Sodium Chloride 25,000 unit in 500 mls @ 24 mls/hr 05/11/21 15:00 05/16/21 20:29 Heparin/ 0.45% Nacl-25,000 Unit/500 Ml IV 1,550 units/hr TITR RISHI 31 mls/hr Administration Protocol 1,200 UNITS/HR Piperacillin Sod/Tazobactam Sod 3.375 gm in 50 mls @ 100 mls/hr 05/13/21 15:00 05/17/21 06:40 Zosyn/Ns 3.375gm/50ml IV 05/18/21 07:29 100 mls/hr Q8H RISHI Administration Protocol Fentanyl Citrate 2,000 mcg in 100 mls @ 4.082 mls/hr 05/16/21 10:00 05/16/21 22:32 Fentanyl Drip Premix IV 1 mcg/kg/hr TITR RISHI 4.082 mls/hr Titration Protocol 1 MCG/KG/HR Insulin Human Lispro 0 unit 05/10/21 09:40 05/12/21 16:49 Insulin Lispro 100 Unit/Ml SUB-Q 2 unit Q6HR PRN Administration Hyperglycemia Protocol Labetalol HCl 10 mg 05/15/21 10:24 Labetalol 20 Mg/4 Ml Inj IV Q4H PRN sbp> 160. Metoprolol Tartrate 50 mg 05/10/21 14:00 05/16/21 20:31 Metoprolol Tartrate 50 Mg Tab FEEDTUBE 50 mg TID RISHI Administration Multi-Ingred Cream/Lotion/Oil/Oint 1 applic 05/05/21 15:21 Mineral Oil/Petrolatum, White Ophth Oint 3.5 Gm OU Q4HR PRN Dry Eye(s) Ondansetron HCl 4 mg 05/04/21 12:34 05/04/21 21:51 Ondansetron 4 Mg/2 Ml Inj IV 4 mg Q8H PRN Administration Nausea And Vomiting Quetiapine Fumarate 200 mg 05/09/21 22:00 05/16/21 22:48 Quetiapine 200 Mg Tab PO 200 mg BID RISHI Administration Senna/Docusate Sodium 1 tab 05/05/21 22:00 05/16/21 22:48 Sennosides/Docusate Sodium 8.6/50 Mg Tab FEEDTUBE 1 tab BID RISHI Administration Sodium Chloride 10 ml 05/04/21 22:00 05/16/21 22:50 Sodium Chloride 0.9% 10 Ml Flush Syringe IV Not Given BID RISHI Sodium Chloride 10 ml 05/04/21 12:34 05/06/21 13:59 Sodium Chloride 0.9% 10 Ml Flush Syringe IV 10 ml PRN PRN Administration LINE FLUSH Sodium Chloride 10 ml 05/09/21 09:46 Sodium Chloride 0.9% 50 Ml Ivpb IV PRN PRN FLUSH Succinylcholine Chloride 200 mg 05/17/21 08:43 Succinylcholine Chloride 200 Mg/10 Ml Inj Mdv IV 05/17/21 08:44 0843 ONE
[2021-05-17] MEDS ORDERED: ETOMIDATE 20 MG/10 ML INJ IV ONE (08:43)
[2021-05-17] MEDS ORDERED: SUCCINYLCHOLINE CHLORIDE 200 MG/10 ML INJ MDV IV ONE (08:43)
[2021-05-17] MEDS ORDERED: FUROSEMIDE 40 MG/4 ML INJ IV SCH (08:45)
[2021-05-17] MEDS: METOPROLOL TARTRATE 50 MG TAB FEEDTUBE SCH ×3 (09:32→20:05)
[2021-05-17] MEDS: ASPIRIN 81 MG TAB CHEW PO SCH (09:34)
[2021-05-17] MEDS: dexAMETHasone 4 MG/ML VIAL IV SCH (09:34)
[2021-05-17] MEDS: FAMOTIDINE 10 MG TAB FEEDTUBE SCH ×2 (09:35→22:17)
[2021-05-17] MEDS: SENNOSIDES/DOCUSATE SODIUM 8.6/50 MG TAB FEEDTUBE SCH ×2 (09:35→22:17)
[2021-05-17] MEDS: QUEtiapine 200 MG TAB PO SCH ×2 (09:36→22:17)
--- NOTE | 2021-05-17 10:45 | Progress Note ---
<JANUSZ PETERSEN - Last Filed: 05/17/21 17:04> Assessment and Plan Assessment and plan: This is a 56-year-old male with a nicotine abuse, A. fib, hypertension, and chronic medication noncompliance and homelessness who presented to emergency department on 05/04 with complaints of dyspnea on exertion for the past month worsening over the past 3 days, intermittent left-sided chest tightness with activity, and persistent cough without fever. Work-up in the emergency department revealed anemia, hyponatremia, elevated BUN/creatinine and transaminitis. Patient was admitted to the hospitalist service with acute kidney injury and accelerated hypertension. Hospital course to date 05/04/2021. 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 However, patient with elevated creatinine therefore will hold off on cath evaluation. Nephrology consultation for acute kidney injury. Etiology likely secondary to vasomotor nephropathy/dehydration. We will start IV fluid hydration. Check renal ultra sound to rule out obstructive uropathy. We will resume home medications for the accelerated hypertension 05/05/2021. Echocardiogram reveals EF 35-40% with moderate concentric left ventricular hypertrophy. Moderate global hypokinesis of left ventricle. Mild mitral regurgitation. Mild pulmonary hypertension. Troponins are believed to be elevated in the setting of acute kidney injury. No beta-blockers due to cocaine use continue heparin and nitro drip. Continue CIWA protocol. Await urine studies 05/06/2021. Patient decompensated yesterday with worsening respiratory failure and difficulty to protect airway. Patient was breathing sonorously, and hypoxic. Patient was intubated and currently is on mechanical ventilation. Patient with AC mode ventilation rate of 20, tidal volume 450, FiO2 40% and PEEP of 6. COVID PCR testing on 05/05/2021 was found to be positive. Echocardiogram completed on this admission shows worsening EF from August 2020. Echocardiogram now reveals moderate concentric left ventricular hypertrophy with moderate global hypokinesis and EF of 35-40%. Mild pulmonary hypertension. 05/08: Continue current management, renal stable, LFTs stable and if improved randall l start on statin therapy. 05/09: Patient is febrile, will panculture, PSV today. CRP pending. Mucoid discharge noted from meatus which was sent for culture. Hypernatremia persists, free water flushes increased 05/10: PSV trial per CCM, T-max 102.3, given mildly elevated procalcitonin started on ceftriaxone 2 g every 24 for 2 days per ID. Overnight patient had atrial fibrillation which was treated with Cardizem drip and converted to sinus rhythm. Metoprolol p.o. increased to 3 times daily. 05/11: Patient still running fevers and if still febrile tomorrow will escalate to cefepime per ID as he is currently on ceftriaxone, CCM attempted PSV but patient became agitated and was switched back to pressure control. Lower extremity ultrasound shows acute DVT and started on heparin drip. Started on scheduled Librium. Patient remains with hypernatremia and elevated creatinine and on IV fluids. Free water flushes adjusted. Started on vancomycin today 05/12: Patient placed on pressure support trial without fentanyl, hypernatremia improving, hyperkalemia noted. Slight improvement to renal function. 05/13: Patient was extubated today, ID change antibiotics to Zosyn for Enterococcus, was started tapering Librium in the morning, renal function slightly improved. Possible transfer to floor tomorrow. ST evaluation for swallow ordered. 05/14: Patient became hypoglycemic overnight and started on dextrose IV fluids. Accu-Chek fingersticks have been low but on a.m. BMP patient blood glucose is 100. Other BMP pending. Feeding tube replaced due to need for enteral access and patient being severely confused. Renal functions remains the same. Upon confirmation will restart tube feedings, p.o. medications and free water flushes. 05/15: Remains confused/somnolent on my encounter. Librium taper in 24hrs per [facility] recs. Remains hypertensive. Added amlodipine 10 mg NG and labetalol prn. ST eval today but doubt he will participate. Potassium replaced. Renal function improving overall, however, hypernatremic. Inc TF FWF to 250 cc q4hr. 05/16: Respiratory distress this AM, hypoxic in 60's not protecting airway. Required intubation, patient now ICU patient. Reduce fluid to FWF only, IVF d/c off jun. CXR ordered demonstrates pulmonary edema. Lasix 40 mg IV bid ordered. Troponin elevated, continue heparin gtt. Would recommend decreasing sedating medications at this point, agree with librium taper. 05/17: Patient remains on the vent and sedated, RASS -3. Plan for possible sedat ion vacation today. D/w CCM plan to wean for possible extubation on the vent. Assessment and Plan Acute hypoxic respiratory failure (worsened) -CCM consulted, appreciate recommendations -Intubated on 05/05 with 7.50 ETT at 20 over the lips in the ED and extubated 05/13 -Reintubated on 05/16 -05/16 CXR increased BL interstitial opacities -Pulmonary perfusion study showed low probability of pulmonary embolism -This am Vent Setting:PRVC-45%,10,20,450 -AM ABG noted -CCM consulted, appreciate recommendations -VAP bundle addressed -Aspiration precaution HOB above 30 -Daily SBT and SAT trials as tolerated -Daily ABG and CXR -Continue SPO2 monitoring for SPO2 goal above 92% Severe COVID-19 pneumonia/leukocytosis, Enterococcus in urine -Infectious disease consulted, appreciate recommendations -COVID-19 PCR positive -Continue droplet/precautions -Not a candidate for remdesivir given acute kidney injury -Dexamethasone for 10 days -Anticoagulation per hospital protocol -Trend COVID-19 from 2 markers (ferritin, D-dimer, CRP, LDH) -Continue IV Abx per ID Acute DVT -Bilateral lower extremity Doppler ultrasound shows acute DVT -On Heparin drip per protocol -Monitor for s/s of active bleeding -Trend CBC and Coags Acute kidney injury likely secondary to vasomotor nephropathy -Nephrology consulted, appreciate recommendations -Avoid nephrotoxic medications -Renally dose medication -Strict intake and output -FeNa indicates prerenal -Renal ultrasound completed: 1.7 hyper echoic mass within the left upper pole, Monitor for now follow-up with CT once stable Metabolic encephalopathy -Intubated and sedated on fentanyl, RASS -3 -On Librium and Seroquel -Plan to wean off sedation, SAT today -Maintain sleep-wake cycle -Monitor QTC -Avoid delirium -Bilateral restraints in place for safety -May need psych consult S/p hypertensive emergency, h/o HTN -Continue BB -Blood pressure monitoring per protocol -Resume home antihypertensive regimen as tolerated Heart failure reduced EF, cardiomyopathy, NSTEMI, paroxysmal atrial fibrillation -Continue beta-sylvia and aspirin -Resume statin therapy -Cardiology consulted, appreciate recommendations -Echo 05/04/2021-EF 35 to 40%. Moderate concentric LVH. Moderate global hypokinesis of left ventricle. Mild mitral regurgitation. Mild pulmonary hyp ertension. Echocardiogram reviewed (08/27/2020): LVEF is 50 to 55%. Mild to moderate concentric LVF. Severe diastolic dysfunction is present (restrictive filling). Right ventricle is mildly hypokinetic. RVSP is 48 mmHg. No valvular abnormalities. -S/p heparin drip for 24 hours -Patient had atrial fibrillation overnight on 05/10 and was treated with a Cardizem drip -Beta-sylvia increased Polysubstance abuse, tobacco abuse -UDS positive for amphetamines -We will need cessation counseling when appropriate Transaminitis, h/o hepatitis C -Renal ultrasound showed incidental finding of cholelithiasis -Trend LFTs -Continue supportive management Anemia -Trend CBC -Transfuse for hemoglobin less than 7 DVT/ GI prophylaxis -Heparin gtt -PPI The high probability of a clinically significant, sudden or life threatening deterioration of the [cardio/resp] system(s) required my full and direct attention, intervention and personal management. The aggregate critical care time was [60] minutes. This time is in addition to time spent performing reported procedures but includes the following: [x] Data Review and interpretation [x] Patient assessment and monitoring of vital signs [x] Documentation [x] Medication orders and management Disposition Plan: ICU Total Time Spent with Patient (Minutes): 60 History Interval history: Patient seen and examined at the bedside. Intubated and sedated, RASS -3. Remains on heparin gtt. HUSSEIN overnight Hospitalist Physical - Constitutional Vitals: Temp Pulse Resp BP Pulse Ox 99.2 F 59 L 20 105/73 100 05/17/21 08:00 05/17/21 09:32 05/17/21 09:00 05/17/21 09:32 05/17/21 09:00 General appearance: Present: no acute distress, other (Intubated and sedated) - EENT Eyes: Present: PERRL - Respiratory Respiratory effort: normal Respiratory: bilateral: rhonchi - Cardiovascular Rhythm: regular Heart Sounds: Present: S1 & S2 - Extremities Extremities: no ischemia, pulses intact, pulses symmetrical Peripheral Pulses: within normal limits - Abdominal General gastrointestinal: soft, non-distended, normal bowel sounds - Integumentary Integumentary: Present: warm, dry - Psychiatric Psychiatric: other (Intubated and sedated) - Neurologic Neurologic: other (Intubated and sedated) - Allied Health Allied health notes reviewed: nursing HEART Score - HEART Score EKG: Non-specific Age: 45-65 Risk factors: 1-2 risk factors Troponin: Troponin T 0.400 ng/mL (0.00-0.029) H* D 05/16/21 18:40 Troponin: 1-3x normal limit - Critical Actions Critical Actions: 4-6 pts:12-16.6% risk of adverse cardiac event. Should be admitted Results - Labs CBC & Chem 7: 05/17/21 16:21 05/17/21 04:52 Labs: Laboratory Last Values WBC 27.6 K/mm3 (4.5-11.0) H 05/16/21 10:21 RBC 3.80 M/mm3 (3.65-5.03) 05/16/21 10:21 Hgb 8.8 gm/dl (11.8-15.2) L 05/17/21 04:52 Hct 28.5 % (35.5-45.6) L D 05/17/21 04:52 MCV 99 fl (84-94) H 05/16/21 10:21 MCH 30 pg (28-32) 05/16/21 10:21 MCHC 30 % (32-34) L 05/16/21 10:21 RDW 18.1 % (13.2-15.2) H 05/16/21 10:21 Plt Count 328 K/mm3 (140-440) 05/17/21 04:52 Lymph % (Auto) Welder Tech 05/16/21 10:21 [place] % (Auto) Welder Tech 05/16/21 10:21 Eos % (Auto) Welder Tech 05/16/21 10:21 Baso % (Auto) Welder Tech 05/16/21 10:21 Lymph # (Auto) Welder Tech 05/16/21 10:21 [place] # (Auto) Welder Tech 05/16/21 10:21 Eos # (Auto) Welder Tech 05/16/21 10:21 Baso # (Auto) Welder Tech 05/16/21 10:21 Add Manual Diff Complete 05/16/21 10:21 Total Counted 100 05/16/21 10:21 Seg Neutrophils % Welder Tech 05/16/21 10:21 Seg Neuts % (Manual) 83.0 % (40.0-70.0) H 05/16/21 10:21 Band Neutrophils % 2.0 % 05/16/21 10:21 Lymphocytes % (Manual) 4.0 % (13.4-35.0) L 05/16/21 10:21 Reactive Lymphs % (Man) 0 % 05/16/21 10:21 Monocytes % (Manual) 9.0 % (0.0-7.3) H 05/16/21 10:21 Eosinophils % (Manual) 0 % (0.0-4.3) 05/16/21 10:21 Basophils % (Manual) 0 % (0.0-1.8) 05/16/21 10:21 Metamyelocytes % 0 % 05/16/21 10:21 Myelocytes % 2.0 % 05/16/21 10:21 Promyelocytes % 0 % 05/16/21 10:21 Blast Cells % 0 % 05/16/21 10:21 Nucleated RBC % Not Reportable 05/16/21 10:21 Seg Neutrophils # Welder Tech 05/16/21 10:21 Seg Neutrophils # Man 22.9 K/mm3 (1.8-7.7) H 05/16/21 10:21 Band Neutrophils # 0.6 K/mm3 05/16/21 10:21 Lymphocytes # (Manual) 1.1 K/mm3 (1.2-5.4) L 05/16/21 10:21 Abs React Lymphs (Man) 0.0 K/mm3 05/16/21 10:21 Monocytes # (Manual) 2.5 K/mm3 (0.0-0.8) H 05/16/21 10:21 Eosinophils # (Manual) 0.0 K/mm3 (0.0-0.4) 05/16/21 10:21 Basophils # (Manual) 0.0 K/mm3 (0.0-0.1) 05/16/21 10:21 Metamyelocytes # 0.0 K/mm3 05/16/21 10:21 Myelocytes # 0.6 K/mm3 05/16/21 10:21 Promyelocytes # 0.0 K/mm3 05/16/21 10:21 Blast Cells # 0.0 K/mm3 05/16/21 10:21 WBC Morphology Not Reportable 05/16/21 10:21 Hypersegmented Neuts Not Reportable 05/16/21 10:21 Hyposegmented Neuts Not Reportable 05/16/21 10:21 Hypogranular Neuts Not Reportable 05/16/21 10:21 Smudge Cells Not Reportable 05/16/21 10:21 Toxic Granulation Not Reportable 05/16/21 10:21 Toxic Vacuolation Not Reportable 05/16/21 10:21 Dohle Bodies Not Reportable 05/16/21 10:21 Pelger-Huet Anomaly Not Reportable 05/16/21 10:21 Jesse Rods Not Reportable 05/16/21 10:21 Platelet Estimate Consistent w auto 05/16/21 10:21 Clumped Platelets Few 05/16/21 10:21 Plt Clumps, EDTA Not Reportable 05/16/21 10:21 Large Platelets Not Reportable 05/16/21 10:21 Giant Platelets Not Reportable 05/16/21 10:21 Platelet Satelliting Not Reportable 05/16/21 10:21 Plt Morphology Comment Not Reportable 05/16/21 10:21 RBC Morphology Not Reportable 05/16/21 10:21 Dimorphic RBCs Not Reportable 05/16/21 10:21 Polychromasia Not Reportable 05/16/21 10:21 Hypochromasia Not Reportable 05/16/21 10:21 Poikilocytosis Not Reportable 05/16/21 10:21 Anisocytosis 1+ 05/16/21 10:21 Microcytosis Not Reportable 05/16/21 10:21 Macrocytosis Few 05/16/21 10:21 Spherocytes Not Reportable 05/16/21 10:21 Pappenheimer Bodies Not Reportable 05/16/21 10:21 Sickle Cells Not Reportable 05/16/21 10:21 Target Cells Not Reportable 05/16/21 10:21 Tear Drop Cells Not Reportable 05/16/21 10:21 Ovalocytes Not Reportable 05/16/21 10:21 Helmet Cells Not Reportable 05/16/21 10:21 [place] Bodies Not Reportable 05/16/21 10:21 [place] Rings Not Reportable 05/16/21 10:21 [place] Cells Not Reportable 05/16/21 10:21 Bite Cells Not Reportable 05/16/21 10:21 Crenated Cell Not Reportable 05/16/21 10:21 Elliptocytes Not Reportable 05/16/21 10:21 Acanthocytes (Spur) Not Reportable 05/16/21 10:21 Rouleaux Not Reportable 05/16/21 10:21 Hemoglobin C Crystals Not Reportable 05/16/21 10:21 Schistocytes Not Reportable 05/16/21 10:21 Malaria parasites Not Reportable 05/16/21 10:21 Tomi Bodies Not Reportable 05/16/21 10:21 Hem Pathologist Commnt No 05/16/21 10:21 PT 15.6 Sec. (12.2-14.9) H 05/11/21 14:43 INR 1.12 (0.87-1.13) 05/11/21 14:43 APTT 30.3 Sec. (24.2-36.6) 05/11/21 14:43 D-Dimer 2730.61 ng/mlDDU (0-234) H 05/12/21 07:19 Heparin Anti-Xa Level 0.31 U.I./ml (0.3-0.7) 05/16/21 13:14 ABG pH 7.447 pH Units (7.350-7.450) 05/17/21 06:50 ABG pCO2 41.1 mm Hg 05/17/21 06:50 ABG pO2 193.7 mm Hg (80.0-90.0) H 05/17/21 06:50 ABG HCO3 27.7 mmol/L (20.0-26.0) H 05/17/21 06:50 ABG O2 Saturation 99.2 % (95.0-99.0) H 05/17/21 06:50 ABG O2 Content 13.0 (0.0-44) 05/17/21 06:50 ABG Base Excess 3.4 mmol/L (-2.0-3.0) H 05/17/21 06:50 ABG Hemoglobin 9.2 gm/dl (14.0-18.0) L 05/17/21 06:50 ABG Carboxyhemoglobin 1.3 % (0.0-5.0) 05/17/21 06:50 ABG Methemoglobin 0.5 % (0.0-1.5) 05/17/21 06:50 Oxyhemoglobin 97.5 % (95.0-99.0) 05/17/21 06:50 FiO2 45 % 05/17/21 06:50 Sodium 146 mmol/L (137-145) H 05/17/21 04:52 Potassium 3.9 mmol/L (3.6-5.0) 05/17/21 04:52 Chloride 110.3 mmol/L (98-107) H 05/17/21 04:52 Carbon Dioxide 24 mmol/L (22-30) D 05/17/21 04:52 Anion Gap 16 mmol/L 05/17/21 04:52 BUN 33 mg/dL (9-20) H 05/17/21 04:52 Creatinine 2.3 mg/dL (0.8-1.3) H 05/17/21 04:52 Estimated GFR 29 ml/min 05/17/21 04:52 BUN/Creatinine Ratio 14 % 05/17/21 04:52 Glucose 120 mg/dL (75-100) H 05/17/21 04:52 POC Glucose 109 mg/dL (70-105) H 05/17/21 05:15 Calcium 8.7 mg/dL (8.4-10.2) 05/17/21 04:52 Phosphorus 4.00 mg/dL (2.5-4.5) 05/14/21 15:44 Magnesium 2.00 mg/dL (1.7-2.3) 05/14/21 15:44 Ferritin 640.2 ng/mL (30.0-300.0) H 05/12/21 07:19 Total Bilirubin 0.60 mg/dL (0.1-1.2) 05/16/21 10:21 AST 34 units/L (5-40) 05/16/21 10:21 ALT 51 units/L (7-56) 05/16/21 10:21 Alkaline Phosphatase 74 units/L (35-129) 05/16/21 10:21 Lactate Dehydrogenase 314 units/L (91-180) H 05/12/21 07:19 Total Creatine Kinase 406 units/L (55-170) H 05/04/21 08:42 Troponin T 0.400 ng/mL (0.00-0.029) H* D 05/16/21 18:40 C-Reactive Protein 1.60 mg/dL (0.00-1.30) H 05/12/21 07:19 Total Protein 7.4 g/dL (6.3-8.2) 05/16/21 10:21 Albumin 3.1 g/dL (3.9-5) L 05/16/21 10:21 Albumin/Globulin Ratio 0.7 % 05/16/21 10:21 Triglycerides 144 mg/dL (2-149) 05/10/21 04:57 Cholesterol 140 mg/dL (50-199) 05/04/21 07:25 LDL Cholesterol Direct 89 mg/dL (50-130) 05/04/21 07:25 HDL Cholesterol 48 mg/dL (40-59) 05/04/21 07:25 Cholesterol/HDL Ratio 2.91 % 05/04/21 07:25 Procalcitonin 0.63 ng/mL (<0.15) 05/09/21 15:53 Urine Color Yellow (Yellow) 05/09/21 13:22 Urine Turbidity Turbid (Clear) 05/09/21 13:22 Urine pH 5.0 (5.0-7.0) 05/09/21 13:22 Ur Specific [place] 1.018 (1.003-1.030) 05/09/21 13:22 Urine Protein 100 mg/dl mg/dL (Negative) 05/09/21 13:22 Urine Glucose (UA) Neg mg/dL (Negative) 05/09/21 13:22 Urine Ketones Tr mg/dL (Negative) 05/09/21 13:22 Urine Blood Mod (Negative) 05/09/21 13:22 Urine Nitrite Neg (Negative) 05/09/21 13:22 Urine Bilirubin Neg (Negative) 05/09/21 13:22 Urine Urobilinogen < 2.0 mg/dL (<2.0) 05/09/21 13:22 Ur Leukocyte Esterase Mod (Negative) 05/09/21 13:22 Urine WBC (Auto) 25.0 /HPF (0.0-6.0) H 05/09/21 13:22 Urine RBC (Auto) 8.0 /HPF (0.0-6.0) 05/09/21 13:22 U Epithel Cells (Auto) < 1.0 /HPF (0-13.0) 05/09/21 13:22 Urine Bacteria (Auto) 1+ /HPF (Negative) 05/09/21 00:40 Uric Acid Crystals Few 05/09/21 00:40 Triple Phos Crystals 2+ 05/09/21 13:22 Amorphous Crystals Few 05/09/21 00:40 Urine Mucus Few /HPF 05/09/21 00:40 Urine Creatinine 100.8 mg/dL (0.1-20.0) H 05/10/21 11:03 Protein/Creatinin Ratio 0.42 05/10/21 11:03 Urine Sodium 61 mmol/L 05/05/21 09:57 Urine Total Protein 42 mg/dL (5-11.8) H 05/10/21 11:03 Urine Opiates Screen Negative 05/04/21 Unknown Urine Methadone Screen Negative 05/04/21 Unknown Ur Barbiturates Screen Negative 05/04/21 Unknown Ur Phencyclidine Scrn Negative 05/04/21 Unknown Ur Amphetamines Screen Positive 05/04/21 Unknown U Benzodiazepines Scrn Negative 05/04/21 Unknown Urine Cocaine Screen Negative 05/04/21 Unknown U Marijuana (THC) Screen Negative 05/04/21 Unknown Drugs of Abuse Note Disclamer 05/04/21 Unknown Immunofix Electrophor see below 05/05/21 03:40 AUDRA Screen Negative (Negative) 05/05/21 03:40 Proteinase 3 (PR3) Ab <1.0 AI (<1.0) 05/05/21 03:40 Myeloperoxidase Ab <1.0 AI (<1.0) 05/05/21 03:40 Complement C3 72 mg/dL (82-185) L 05/05/21 03:40 Complement C4 17 mg/dL (15-53) 05/05/21 03:40 Coronavirus (PCR) Positive (Negative) A 05/05/21 08:30 Hepatitis A IgM Ab Non-reactive (NonReactive) 05/05/21 03:40 Hep Bs Antigen Non-reactive (Negative) 05/05/21 03:40 Hep B Core IgM Ab Non-reactive (NonReactive) 05/05/21 03:40 Hepatitis C Antibody Reactive (NonReactive) A 05/05/21 03:40 Microbiology: Microbiology 05/16/21 10:31 Tracheal Aspirate Sputum Culture - Preliminary [place]/IV: Voiding Method Indwelling Catheter Active Medications - Current Medications Current Medications: Generic Name Dose Route Start Last Admin Trade Name Freq PRN Reason Stop Dose Admin Acetaminophen 650 mg 05/04/21 12:34 05/11/21 11:24 Acetaminophen 325 Mg Tab PO 650 mg Q4H PRN Administration Pain MILD(1-3)/Fever >100.5/MARIA Acetaminophen 650 mg 05/07/21 16:00 05/11/21 16:25 Acetaminophen 650 Mg Rect Supp AL 650 mg Q4H PRN Administration Pain, Mild (1-3) Aspirin 81 mg 05/06/21 14:00 05/17/21 09:34 Aspirin 81 Mg Tab Chew PO 81 mg QDAY RISHI Administration Atorvastatin Calcium 40 mg 05/09/21 22:00 05/16/21 22:48 Atorvastatin 40 Mg Tab FEEDTUBE 40 mg QHS RISHI Administration Chlordiazepoxide HCl 75 mg 05/11/21 15:00 05/17/21 06:47 Chlordiazepoxide 25 Mg Cap PO Not Given Q8H [facility] Dextrose 0 ml 05/09/21 10:49 05/14/21 06:55 Dextrose 10% *Hypoglycemia IV 250 ml PRN PRN Administration Hypoglycemia Famotidine 10 mg 05/17/21 10:00 05/17/21 09:35 Famotidine 10 Mg Tab FEEDTUBE 10 mg BID RISHI Administration Fentanyl 50 mcg 05/16/21 09:56 Fentanyl 100 Mcg/2 Ml Inj IV Q10MIN PRN ANALGESIA Haloperidol Lactate 5 mg 05/09/21 18:32 05/15/21 20:18 Haloperidol Lactate 5 Mg/1 Ml Inj IV 5 mg Q6H PRN Administration Agitation Heparin Sodium (Porcine) 3,000 unit 05/11/21 14:14 Heparin 10,000 Units/10 Ml Vial IV Q6H PRN Anti-Xa Assay < 0.1 units/ml Hydralazine HCl 50 mg 05/04/21 14:00 05/17/21 06:40 Hydralazine 25 Mg Tab PO Not Given Q8HR [facility] Hydrophilic Ointment 1 applic 05/05/21 15:21 Lip Therapy Vaseline TP Q2HR PRN Dry Lips Heparin Sodium/Sodium Chloride 25,000 unit in 500 mls @ 24 mls/hr 05/11/21 15:00 05/16/21 20:29 Heparin/ 0.45% Nacl-25,000 Unit/500 Ml IV 1,550 units/hr TITR RISHI 31 mls/hr Administration Protocol 1,200 UNITS/HR Piperacillin Sod/Tazobactam Sod 3.375 gm in 50 mls @ 100 mls/hr 05/13/21 15:00 05/17/21 06:40 Zosyn/Ns 3.375gm/50ml IV 05/18/21 07:29 100 mls/hr Q8H RISHI Administration Protocol Fentanyl Citrate 2,000 mcg in 100 mls @ 4.082 mls/hr 05/16/21 10:00 05/16/21 22:32 Fentanyl Drip Premix IV 1 mcg/kg/hr TITR RISHI 4.082 mls/hr Titration Protocol 1 MCG/KG/HR Insulin Human Lispro 0 unit 05/10/21 09:40 05/12/21 16:49 Insulin Lispro 100 Unit/Ml SUB-Q 2 unit Q6HR PRN Administration Hyperglycemia Protocol Labetalol HCl 10 mg 05/15/21 10:24 Labetalol 20 Mg/4 Ml Inj IV Q4H PRN sbp> 160. Metoprolol Tartrate 50 mg 05/10/21 14:00 05/17/21 09:32 Metoprolol Tartrate 50 Mg Tab FEEDTUBE Not Given TID RISHI Multi-Ingred Cream/Lotion/Oil/Oint 1 applic 05/05/21 15:21 Mineral Oil/Petrolatum, White Ophth Oint 3.5 Gm OU Q4HR PRN Dry Eye(s) Ondansetron HCl 4 mg 05/04/21 12:34 05/04/21 21:51 Ondansetron 4 Mg/2 Ml Inj IV 4 mg Q8H PRN Administration Nausea And Vomiting Quetiapine Fumarate 200 mg 05/09/21 22:00 05/17/21 09:36 Quetiapine 200 Mg Tab PO 200 mg BID RISHI Administration Senna/Docusate Sodium 1 tab 05/05/21 22:00 05/17/21 09:35 Sennosides/Docusate Sodium 8.6/50 Mg Tab FEEDTUBE 1 tab BID RISHI Administration Sodium Chloride 10 ml 05/04/21 22:00 05/17/21 09:37 Sodium Chloride 0.9% 10 Ml Flush Syringe IV 10 ml BID RISHI Administration Sodium Chloride 10 ml 05/04/21 12:34 05/06/21 13:59 Sodium Chloride 0.9% 10 Ml Flush Syringe IV 10 ml PRN PRN Administration LINE FLUSH Sodium Chloride 10 ml 05/09/21 09:46 Sodium Chloride 0.9% 50 Ml Ivpb IV PRN PRN FLUSH Nutrition/Malnutrition Assess - Dietary Evaluation Nutrition/Malnutrition Findings: Nutrition Notes Start: 05/05/21 16:15 Freq: Status: Active Protocol: Document 05/16/21 10:32 VIDATIKI (Rec: 05/16/21 10:48 ROSAURA [id number]) Nutrition Notes Initial or Follow up Reassessment Current Diagnosis Acute Kidney Injury, Hypertension,Heart Failure, Respiratory Failure Other Pertinent Diagnosis 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 Percent of energy/protein needs met: 75% energy 92% pro Minimum of two criteria No #1 Nutrition Diagnosis Inadequate oral intake Diagnosis Progress(for reassessment Continues documentation) Is patient on ventilator? Yes Is Patient Ambulatory and/or Out of Bed No REE-([facility]-confined to bed) [phone] Calculation Used for Recommendations [facility] Additional Notes Pro needs 1.2-2g/k-163g/ day Fluid needs 1ml/kcal Nutrition Intervention Nutrition Support: Continue Promote at 60ml/hr with 200ml water flush q4 until hypernatremia resolved. When Na lab is WNL, reduce water flush to 50ml q4h. Kcal 1,440 Protein (gm) 90 Carbohydrates (gm) 187 Fat (gm) 37 Fluid (mL) 1,208 Fiber (gm) 0 Goal #1 TF tolerance Goal #2 TF to meet at least 75% energy and pro needs Follow-Up By: 05/20/21 Additional Comments F/U: TF tolerance, Na lab/ water flushes, BG lab/need for reduced CHO formula, vent status <VIKRAM SAENZ - Last Filed: 05/17/21 18:25> Assessment and Plan Assessment and plan: I saw and evaluated the patient. I agree with the findings and the plan of care as documented in the Nurse Practitioner's~note, with the following corrections and additions. Hospitalist Physical - Constitutional Vitals: Temp Pulse Resp BP Pulse Ox 99 F 63 14 108/81 100 05/17/21 16:00 05/17/21 17:00 05/17/21 17:00 05/17/21 17:00 05/17/21 17:00 HEART Score - HEART Score Troponin: Troponin T 0.400 ng/mL (0.00-0.029) H* D 05/16/21 18:40 Results - Labs CBC & Chem 7: 05/17/21 16:21 05/17/21 04:52 Labs: Laboratory Last Values WBC 27.6 K/mm3 (4.5-11.0) H 05/16/21 10:21 RBC 3.80 M/mm3 (3.65-5.03) 05/16/21 10:21 Hgb 9.6 gm/dl (11.8-15.2) L 05/17/21 16:21 Hct 30.3 % (35.5-45.6) L 05/17/21 16:21 MCV 99 fl (84-94) H 05/16/21 10:21 MCH 30 pg (28-32) 05/16/21 10:21 MCHC 30 % (32-34) L 05/16/21 10:21 RDW 18.1 % (13.2-15.2) H 05/16/21 10:21 Plt Count 328 K/mm3 (140-440) 05/17/21 04:52 Lymph % (Auto) Welder Tech 05/16/21 10:21 [place] % (Auto) Welder Tech 05/16/21 10:21 Eos % (Auto) Welder Tech 05/16/21 10:21 Baso % (Auto) Welder Tech 05/16/21 10:21 Lymph # (Auto) Welder Tech 05/16/21 10:21 [place] # (Auto) Welder Tech 05/16/21 10:21 Eos # (Auto) Welder Tech 05/16/21 10:21 Baso # (Auto) Welder Tech 05/16/21 10:21 Add Manual Diff Complete 05/16/21 10:21 Total Counted 100 05/16/21 10:21 Seg Neutrophils % Welder Tech 05/16/21 10:21 Seg Neuts % (Manual) 83.0 % (40.0-70.0) H 05/16/21 10:21 Band Neutrophils % 2.0 % 05/16/21 10:21 Lymphocytes % (Manual) 4.0 % (13.4-35.0) L 05/16/21 10:21 Reactive Lymphs % (Man) 0 % 05/16/21 10:21 Monocytes % (Manual) 9.0 % (0.0-7.3) H 05/16/21 10:21 Eosinophils % (Manual) 0 % (0.0-4.3) 05/16/21 10:21 Basophils % (Manual) 0 % (0.0-1.8) 05/16/21 10:21 Metamyelocytes % 0 % 05/16/21 10:21 Myelocytes % 2.0 % 05/16/21 10:21 Promyelocytes % 0 % 05/16/21 10:21 Blast Cells % 0 % 05/16/21 10:21 Nucleated RBC % Not Reportable 05/16/21 10:21 Seg Neutrophils # Welder Tech 05/16/21 10:21 Seg Neutrophils # Man 22.9 K/mm3 (1.8-7.7) H 05/16/21 10:21 Band Neutrophils # 0.6 K/mm3 05/16/21 10:21 Lymphocytes # (Manual) 1.1 K/mm3 (1.2-5.4) L 05/16/21 10:21 Abs React Lymphs (Man) 0.0 K/mm3 05/16/21 10:21 Monocytes # (Manual) 2.5 K/mm3 (0.0-0.8) H 05/16/21 10:21 Eosinophils # (Manual) 0.0 K/mm3 (0.0-0.4) 05/16/21 10:21 Basophils # (Manual) 0.0 K/mm3 (0.0-0.1) 05/16/21 10:21 Metamyelocytes # 0.0 K/mm3 05/16/21 10:21 Myelocytes # 0.6 K/mm3 05/16/21 10:21 Promyelocytes # 0.0 K/mm3 05/16/21 10:21 Blast Cells # 0.0 K/mm3 05/16/21 10:21 WBC Morphology Not Reportable 05/16/21 10:21 Hypersegmented Neuts Not Reportable 05/16/21 10:21 Hyposegmented Neuts Not Reportable 05/16/21 10:21 Hypogranular Neuts Not Reportable 05/16/21 10:21 Smudge Cells Not Reportable 05/16/21 10:21 Toxic Granulation Not Reportable 05/16/21 10:21 Toxic Vacuolation Not Reportable 05/16/21 10:21 Dohle Bodies Not Reportable 05/16/21 10:21 Pelger-Huet Anomaly Not Reportable 05/16/21 10:21 Jesse Rods Not Reportable 05/16/21 10:21 Platelet Estimate Consistent w auto 05/16/21 10:21 Clumped Platelets Few 05/16/21 10:21 Plt Clumps, EDTA Not Reportable 05/16/21 10:21 Large Platelets Not Reportable 05/16/21 10:21 Giant Platelets Not Reportable 05/16/21 10:21 Platelet Satelliting Not Reportable 05/16/21 10:21 Plt Morphology Comment Not Reportable 05/16/21 10:21 RBC Morphology Not Reportable 05/16/21 10:21 Dimorphic RBCs Not Reportable 05/16/21 10:21 Polychromasia Not Reportable 05/16/21 10:21 Hypochromasia Not Reportable 05/16/21 10:21 Poikilocytosis Not Reportable 05/16/21 10:21 Anisocytosis 1+ 05/16/21 10:21 Microcytosis Not Reportable 05/16/21 10:21 Macrocytosis Few 05/16/21 10:21 Spherocytes Not Reportable 05/16/21 10:21 Pappenheimer Bodies Not Reportable 05/16/21 10:21 Sickle Cells Not Reportable 05/16/21 10:21 Target Cells Not Reportable 05/16/21 10:21 Tear Drop Cells Not Reportable 05/16/21 10:21 Ovalocytes Not Reportable 05/16/21 10:21 Helmet Cells Not Reportable 05/16/21 10:21 [place] Bodies Not Reportable 05/16/21 10:21 [place] Rings Not Reportable 05/16/21 10:21 [place] Cells Not Reportable 05/16/21 10:21 Bite Cells Not Reportable 05/16/21 10:21 Crenated Cell Not Reportable 05/16/21 10:21 Elliptocytes Not Reportable 05/16/21 10:21 Acanthocytes (Spur) Not Reportable 05/16/21 10:21 Rouleaux Not Reportable 05/16/21 10:21 Hemoglobin C Crystals Not Reportable 05/16/21 10:21 Schistocytes Not Reportable 05/16/21 10:21 Malaria parasites Not Reportable 05/16/21 10:21 Tomi Bodies Not Reportable 05/16/21 10:21 Hem Pathologist Commnt No 05/16/21 10:21 PT 15.6 Sec. (12.2-14.9) H 05/11/21 14:43 INR 1.12 (0.87-1.13) 05/11/21 14:43 APTT 30.3 Sec. (24.2-36.6) 05/11/21 14:43 D-Dimer 2730.61 ng/mlDDU (0-234) H 05/12/21 07:19 Heparin Anti-Xa Level 0.47 U.I./ml (0.3-0.7) 05/17/21 04:52 ABG pH 7.422 pH Units (7.350-7.450) 05/17/21 15:35 ABG pCO2 43.2 mm Hg 05/17/21 15:35 ABG pO2 103.7 mm Hg (80.0-90.0) H 05/17/21 15:35 ABG HCO3 27.5 mmol/L (20.0-26.0) H 05/17/21 15:35 ABG O2 Saturation 97.8 % (95.0-99.0) 05/17/21 15:35 ABG O2 Content 15.7 (0.0-44) 05/17/21 15:35 ABG Base Excess 2.7 mmol/L (-2.0-3.0) 05/17/21 15:35 ABG Hemoglobin 11.5 gm/dl (14.0-18.0) L 05/17/21 15:35 ABG Carboxyhemoglobin 1.5 % (0.0-5.0) 05/17/21 15:35 ABG Methemoglobin 0.5 % (0.0-1.5) 05/17/21 15:35 Oxyhemoglobin 95.8 % (95.0-99.0) 05/17/21 15:35 FiO2 40 % 05/17/21 15:35 Sodium 146 mmol/L (137-145) H 05/17/21 04:52 Potassium 3.9 mmol/L (3.6-5.0) 05/17/21 04:52 Chloride 110.3 mmol/L (98-107) H 05/17/21 04:52 Carbon Dioxide 24 mmol/L (22-30) D 05/17/21 04:52 Anion Gap 16 mmol/L 05/17/21 04:52 BUN 33 mg/dL (9-20) H 05/17/21 04:52 Creatinine 2.3 mg/dL (0.8-1.3) H 05/17/21 04:52 Estimated GFR 29 ml/min 05/17/21 04:52 BUN/Creatinine Ratio 14 % 05/17/21 04:52 Glucose 120 mg/dL (75-100) H 05/17/21 04:52 POC Glucose 133 mg/dL (70-105) H 05/17/21 18:18 Calcium 8.7 mg/dL (8.4-10.2) 05/17/21 04:52 Phosphorus 4.00 mg/dL (2.5-4.5) 05/14/21 15:44 Magnesium 2.00 mg/dL (1.7-2.3) 05/14/21 15:44 Ferritin 640.2 ng/mL (30.0-300.0) H 05/12/21 07:19 Total Bilirubin 0.60 mg/dL (0.1-1.2) 05/16/21 10:21 AST 34 units/L (5-40) 05/16/21 10:21 ALT 51 units/L (7-56) 05/16/21 10:21 Alkaline Phosphatase 74 units/L (35-129) 05/16/21 10:21 Lactate Dehydrogenase 314 units/L (91-180) H 05/12/21 07:19 Total Creatine Kinase 406 units/L (55-170) H 05/04/21 08:42 Troponin T 0.400 ng/mL (0.00-0.029) H* D 05/16/21 18:40 C-Reactive Protein 1.60 mg/dL (0.00-1.30) H 05/12/21 07:19 Total Protein 7.4 g/dL (6.3-8.2) 05/16/21 10:21 Albumin 3.1 g/dL (3.9-5) L 05/16/21 10:21 Albumin/Globulin Ratio 0.7 % 05/16/21 10:21 Triglycerides 144 mg/dL (2-149) 05/10/21 04:57 Cholesterol 140 mg/dL (50-199) 05/04/21 07:25 LDL Cholesterol Direct 89 mg/dL (50-130) 05/04/21 07:25 HDL Cholesterol 48 mg/dL (40-59) 05/04/21 07:25 Cholesterol/HDL Ratio 2.91 % 05/04/21 07:25 Procalcitonin 0.63 ng/mL (<0.15) 05/09/21 15:53 Urine Color Yellow (Yellow) 05/09/21 13:22 Urine Turbidity Turbid (Clear) 05/09/21 13:22 Urine pH 5.0 (5.0-7.0) 05/09/21 13:22 Ur Specific [place] 1.018 (1.003-1.030) 05/09/21 13:22 Urine Protein 100 mg/dl mg/dL (Negative) 05/09/21 13:22 Urine Glucose (UA) Neg mg/dL (Negative) 05/09/21 13:22 Urine Ketones Tr mg/dL (Negative) 05/09/21 13:22 Urine Blood Mod (Negative) 05/09/21 13:22 Urine Nitrite Neg (Negative) 05/09/21 13:22 Urine Bilirubin Neg (Negative) 05/09/21 13:22 Urine Urobilinogen < 2.0 mg/dL (<2.0) 05/09/21 13:22 Ur Leukocyte Esterase Mod (Negative) 05/09/21 13:22 Urine WBC (Auto) 25.0 /HPF (0.0-6.0) H 05/09/21 13:22 Urine RBC (Auto) 8.0 /HPF (0.0-6.0) 05/09/21 13:22 U Epithel Cells (Auto) < 1.0 /HPF (0-13.0) 05/09/21 13:22 Urine Bacteria (Auto) 1+ /HPF (Negative) 05/09/21 00:40 Uric Acid Crystals Few 05/09/21 00:40 Triple Phos Crystals 2+ 05/09/21 13:22 Amorphous Crystals Few 05/09/21 00:40 Urine Mucus Few /HPF 05/09/21 00:40 Urine Creatinine 100.8 mg/dL (0.1-20.0) H 05/10/21 11:03 Protein/Creatinin Ratio 0.42 05/10/21 11:03 Urine Sodium 61 mmol/L 05/05/21 09:57 Urine Total Protein 42 mg/dL (5-11.8) H 05/10/21 11:03 Urine Opiates Screen Negative 05/04/21 Unknown Urine Methadone Screen Negative 05/04/21 Unknown Ur Barbiturates Screen Negative 05/04/21 Unknown Ur Phencyclidine Scrn Negative 05/04/21 Unknown Ur Amphetamines Screen Positive 05/04/21 Unknown U Benzodiazepines Scrn Negative 05/04/21 Unknown Urine Cocaine Screen Negative 05/04/21 Unknown U Marijuana (THC) Screen Negative 05/04/21 Unknown Drugs of Abuse Note Disclamer 05/04/21 Unknown Immunofix Electrophor see below 05/05/21 03:40 AUDRA Screen Negative (Negative) 05/05/21 03:40 Proteinase 3 (PR3) Ab <1.0 AI (<1.0) 05/05/21 03:40 Myeloperoxidase Ab <1.0 AI (<1.0) 05/05/21 03:40 Complement C3 72 mg/dL (82-185) L 05/05/21 03:40 Complement C4 17 mg/dL (15-53) 05/05/21 03:40 Coronavirus (PCR) Positive (Negative) A 05/05/21 08:30 Hepatitis A IgM Ab Non-reactive (NonReactive) 05/05/21 03:40 Hep Bs Antigen Non-reactive (Negative) 05/05/21 03:40 Hep B Core IgM Ab Non-reactive (NonReactive) 05/05/21 03:40 Hepatitis C Antibody Reactive (NonReactive) A 05/05/21 03:40 Microbiology: Microbiology 05/16/21 10:31 Tracheal Aspirate Sputum Culture - Preliminary Gram Negative Osmany Merino/IV: Voiding Method Indwelling Catheter Active Medications - Current Medications Current Medications: Generic Name Dose Route Start Last Admin Trade Name Freq PRN Reason Stop Dose Admin Acetaminophen 650 mg 05/04/21 12:34 05/11/21 11:24 Acetaminophen 325 Mg Tab PO 650 mg Q4H PRN Administration Pain MILD(1-3)/Fever >100.5/MARIA Acetaminophen 650 mg 05/07/21 16:00 05/11/21 16:25 Acetaminophen 650 Mg Rect Supp [place] 650 mg Q4H PRN Administration Pain, Mild (1-3) Aspirin 81 mg 05/06/21 14:00 05/17/21 09:34 Aspirin 81 Mg Tab Chew PO 81 mg QDAY RISHI Administration Atorvastatin Calcium 40 mg 05/09/21 22:00 05/16/21 22:48 Atorvastatin 40 Mg Tab FEEDTUBE 40 mg QHS RISHI Administration Chlordiazepoxide HCl 75 mg 05/11/21 15:00 05/17/21 14:45 Chlordiazepoxide 25 Mg Cap PO 75 mg Q8H RISHI Administration Dextrose 0 ml 05/09/21 10:49 05/14/21 06:55 Dextrose 10% *Hypoglycemia IV 250 ml PRN PRN Administration Hypoglycemia Famotidine 10 mg 05/17/21 10:00 05/17/21 09:35 Famotidine 10 Mg Tab FEEDTUBE 10 mg BID RISHI Administration Fentanyl 50 mcg 05/16/21 09:56 Fentanyl 100 Mcg/2 Ml Inj IV Q10MIN PRN ANALGESIA Haloperidol Lactate 5 mg 05/09/21 18:32 05/15/21 20:18 Haloperidol Lactate 5 Mg/1 Ml Inj IV 5 mg Q6H PRN Administration Agitation Heparin Sodium (Porcine) 3,000 unit 05/11/21 14:14 Heparin 10,000 Units/10 Ml Vial IV Q6H PRN Anti-Xa Assay < 0.1 units/ml Hydralazine HCl 50 mg 05/04/21 14:00 05/17/21 16:37 Hydralazine 25 Mg Tab PO Not Given Q8HR [facility] Hydrophilic Ointment 1 applic 05/05/21 15:21 Lip Therapy Vaseline TP Q2HR PRN Dry Lips Heparin Sodium/Sodium Chloride 25,000 unit in 500 mls @ 24 mls/hr 05/11/21 15:00 05/17/21 14:10 Heparin/ 0.45% Nacl-25,000 Unit/500 Ml IV 1,550 units/hr TITR RISHI 31 mls/hr Administration Protocol 1,200 UNITS/HR Piperacillin Sod/Tazobactam Sod 3.375 gm in 50 mls @ 100 mls/hr 05/13/21 15:00 05/17/21 14:38 Zosyn/Ns 3.375gm/50ml IV 05/18/21 07:29 100 mls/hr Q8H RISHI Administration Protocol Fentanyl Citrate 2,000 mcg in 100 mls @ 4.082 mls/hr 05/16/21 10:00 05/17/21 15:00 Fentanyl Drip Premix IV 1 mcg/kg/hr TITR RISHI 4.082 mls/hr Administration Protocol 1 MCG/KG/HR Insulin Human Lispro 0 unit 05/10/21 09:40 05/12/21 16:49 Insulin Lispro 100 Unit/Ml SUB-Q 2 unit Q6HR PRN Administration Hyperglycemia Protocol Labetalol HCl 10 mg 05/15/21 10:24 Labetalol 20 Mg/4 Ml Inj IV Q4H PRN sbp> 160. Metoprolol Tartrate 50 mg 05/10/21 14:00 05/17/21 14:44 Metoprolol Tartrate 50 Mg Tab FEEDTUBE Not Given TID RISHI Multi-Ingred Cream/Lotion/Oil/Oint 1 applic 05/05/21 15:21 Mineral Oil/Petrolatum, White Ophth Oint 3.5 Gm OU Q4HR PRN Dry Eye(s) Ondansetron HCl 4 mg 05/04/21 12:34 05/04/21 21:51 Ondansetron 4 Mg/2 Ml Inj IV 4 mg Q8H PRN Administration Nausea And Vomiting Quetiapine Fumarate 200 mg 05/09/21 22:00 05/17/21 09:36 Quetiapine 200 Mg Tab PO 200 mg BID RISHI Administration Senna/Docusate Sodium 1 tab 05/05/21 22:00 05/17/21 09:35 Sennosides/Docusate Sodium 8.6/50 Mg Tab FEEDTUBE 1 tab BID RISHI Administration Sodium Chloride 10 ml 05/04/21 22:00 05/17/21 09:37 Sodium Chloride 0.9% 10 Ml Flush Syringe IV 10 ml BID RISHI Administration Sodium Chloride 10 ml 05/04/21 12:34 05/06/21 13:59 Sodium Chloride 0.9% 10 Ml Flush Syringe IV 10 ml PRN PRN Administration LINE FLUSH Sodium Chloride 10 ml 05/09/21 09:46 Sodium Chloride 0.9% 50 Ml Ivpb IV PRN PRN FLUSH Nutrition/Malnutrition Assess - Dietary Evaluation Nutrition/Malnutrition Findings: Nutrition Notes Start: 05/05/21 16:15 Freq: Status: Active Protocol: Document 05/16/21 10:32 ROSAURA (Rec: 05/16/21 10:48 ROSAURA [id number]) Nutrition Notes Initial or Follow up Reassessment Current Diagnosis Acute Kidney Injury, Hypertension,Heart Failure, Respiratory Failure Other Pertinent Diagnosis 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 Percent of energy/protein needs met: 75% energy 92% pro Minimum of two criteria No #1 Nutrition Diagnosis Inadequate oral intake Diagnosis Progress(for reassessment Continues documentation) Is patient on ventilator? Yes Is Patient Ambulatory and/or Out of Bed No REE-([facility]-confined to bed) [phone] Calculation Used for Recommendations [facility] Additional Notes Pro needs 1.2-2g/k-163g/ day Fluid needs 1ml/kcal Nutrition Intervention Nutrition Support: Continue Promote at 60ml/hr with 200ml water flush q4 until hypernatremia resolved. When Na lab is WNL, reduce water flush to 50ml q4h. Kcal 1,440 Protein (gm) 90 Carbohydrates (gm) 187 Fat (gm) 37 Fluid (mL) 1,208 Fiber (gm) 0 Goal #1 TF tolerance Goal #2 TF to meet at least 75% energy and pro needs Follow-Up By: 05/20/21 Additional Comments F/U: TF tolerance, Na lab/ water flushes, BG lab/need for reduced CHO formula, vent status
[2021-05-17 11:00] LABS: ABG Base Excess 3.6 mmol/L (-2.0-3.0); ABG HCO3 27.7 mmol/L (20.0-26.0); ABG Methemoglobin 0.5 % (0.0-1.5); ABG PCO2 40.1 mm Hg; ABG PH 7.457 pH Units (7.350-7.450); ABG PO2 162.5 mm Hg (80.0-90.0)
--- NOTE | 2021-05-17 11:25 | Progress Note ---
Assessment and Plan Acute hypoxic resp failure on MVS COVID positive NSTEMI Acute kidney injury Cardiomyopathy EF 35-40% History of hepatitis C Elevated D-dimer. Low probability for PE seen on VQ scan Tobacco abuse Polysubstance abusepatient with positive methamphetamines and has a history of cocaine use Anemia - hold Fentanyl - use CIWA protocol drugs for sedation - placed on SBT - ABG in 2 hours - repeat H&H in 6 hours re: acute drop (no bleeding repoprted) - continue to follow electrolytes / I's & O's re: Azotemia - continue IV Heparin re: VTE (Transition to oral agent soon) - continue care as below otherwise; - Daily SAT and SBT assessment as tolerated - continue to wean supplemental oxygen for target O2 sat's > 90% acutely - VAP bundle addressed - continue lung protective strategies - continue bronchodilators with pulmonary hygiene per RT - wean per pulmonary driven protocols otherwise - avoid nephrotoxins, renally dose all medications - AB's per ID recommendations - continue accuchecks with glycemic control per SSI (While critically ill target blood glucose of 140-180 mg/dL; avoid hypoglycemia) - sedation prn for target RASS 0 to -1 - continue to avoid benzodiazepine's, reduce the possibility of delirium - prn analgesia per CPOT score - Maintenance of sleep-wake cycle, avoid delirium - continue enteral nutritional support at goal rate as tolerated - G.I. & VTE prophylaxis - PT/OT/ROM exercises - continue mobility protocols for pressure ulcer prophylaxis - Monitor hemodynamics closely - continue other care per attending / other consultants - discharge planning ongoing concurrently COVID SPECIFIC INTERVENTIONS - Appears to have incidental COVID infection- Remdesivir not administered secondary to renal failure - continue systemic steroids for severe COVID-19 infection empirically (Dexamethasone) - follow repeat COVID tests results - zinc and vitamin C supplementation - Monitor inflammatory markers per facility protocol - ferritin, Ddimer, CRP - therapeutic anticoagulation per system Protocol based on d-dimer and clinical considerations (on therapeutic heparin for NSTEMI) - Continue contact and airborne isolation .... Re-evaluate in am & prn CONDITION: CRITICAL PROGNOSIS: GUARDED CODE STATUS: FULL CODE The high probability of a clinically significant, sudden or life-threatening deterioration of the [respiratory, cardiovascular & neurologic] system(s) req uired my full and direct attention, intervention and personal management. The aggregate critical care time was [32] minutes without overlap. Time includes spent on; [x] Data Review and interpretation [x] Patient assessment and monitoring of vital signs [x] Documentation [x] Medication orders and management Subjective Date of service: 05/17/21 Principal diagnosis: AHRF; COVID-19 infection; NSTEMI; YE; HFrEF (35-40%); Polysubstance abuse Interval history: Patient is seen today for: Acute hypoxemic Resp failure; COVID-19 infection; NSTEMI; YE; HFrEF (35-40%); Polysubstance abuse; Anemia Seen and examined at bedside; 24hour events reviewed; nursing and respiratory care staff consulted; no adverse overnight events reported to me; resting in bed; remains on MVS; Librium held earlier but remains on Fentanyl drip; oxygenation improved; tolerated bedside SBT; great diuresis but azotemia worse; no emesis or overt aspiration and no seizures Objective Vital Signs - 12hr 05/17/21 05/17/21 05/17/21 00:00 00:23 01:00 Temperature 99.4 F Pulse Rate 64 84 66 Pulse Rate [ 64 From Monitor] Respiratory 20 20 Rate Blood Pressure 102/69 102/69 105/71 O2 Sat by Pulse 100 100 100 Oximetry 05/17/21 05/17/21 05/17/21 02:00 03:00 04:00 Temperature 97.8 F Pulse Rate 65 63 63 Pulse Rate [ 63 From Monitor] Respiratory 20 20 20 Rate Blood Pressure 97/68 101/69 111/75 O2 Sat by Pulse 100 100 100 Oximetry 05/17/21 05/17/21 05/17/21 05:00 06:00 07:00 Temperature Pulse Rate 62 61 63 Pulse Rate [ From Monitor] Respiratory 20 20 20 Rate Blood Pressure 103/74 110/78 103/74 O2 Sat by Pulse 100 100 100 Oximetry 05/17/21 05/17/21 05/17/21 08:00 08:05 09:00 Temperature 99.2 F Pulse Rate 62 64 62 Pulse Rate [ 63 From Monitor] Respiratory 20 20 Rate Blood Pressure 101/71 101/71 105/73 O2 Sat by Pulse 100 100 100 Oximetry 05/17/21 09:32 Temperature Pulse Rate 59 L Pulse Rate [ From Monitor] Respiratory Rate Blood Pressure 105/73 O2 Sat by Pulse Oximetry Constitutional: no acute distress, asleep, other (mildly increased respiratory effort at rest on MVS) Eyes: non-icteric ENT: oropharynx moist, other (ETT 24 cm ELIZABET) Neck: supple, no lymphadenopathy, no JVD Effort: normal Ascultation: Bilateral: diminished breath sounds, rhonchi Percussion: Bilateral: not dull Cardiovascular: regular rate and rhythm, other (S1,S2) Gastrointestinal: normoactive bowel sounds, soft, non-tender, non-distended Integumentary: normal Extremities: no cyanosis, no edema, pulses normal, no ischemia or petechiae Neurologic: non-focal exam (grossly), pupils equal and round, CN II-XII normal, motor strength normal and Psychiatric: other (sedated) CBC and BMP: 05/17/21 04:52 05/17/21 04:52 ABG, PT/INR, D-dimer: ABG ABG pH 7.457 pH Units (7.350-7.450) H 05/17/21 10:30 ABG pCO2 40.1 mm Hg 05/17/21 10:30 ABG pO2 162.5 mm Hg (80.0-90.0) H 05/17/21 10:30 ABG O2 Saturation 99.0 % (95.0-99.0) 05/17/21 10:30 PT/INR, D-dimer PT 15.6 Sec. (12.2-14.9) H 05/11/21 14:43 INR 1.12 (0.87-1.13) 05/11/21 14:43 D-Dimer 2730.61 ng/mlDDU (0-234) H 05/12/21 07:19 Abnormal lab findings: Abnormal Labs 05/04/21 05/04/21 05/04/21 07:25 07:25 07:25 WBC 12.9 H RBC 3.04 L Hgb 9.5 L Hct 28.4 L MCV MCHC RDW 15.4 H Lymph % (Auto) 11.4 L [place] % (Auto) 10.1 H Lymph # (Auto) [place] # (Auto) 1.3 H Seg Neutrophils % 78.0 H Seg Neuts % (Manual) Lymphocytes % (Manual) Monocytes % (Manual) Seg Neutrophils # 10.0 H Seg Neutrophils # Man Lymphocytes # (Manual) Monocytes # (Manual) PT 15.1 H D-Dimer Heparin Anti-Xa Level ABG pH ABG pO2 ABG HCO3 ABG O2 Saturation ABG Base Excess ABG Hemoglobin Sodium 135 L Potassium Chloride Carbon Dioxide BUN 65 H Creatinine 3.4 H Glucose 118 H POC Glucose Calcium Ferritin Total Bilirubin 1.50 H AST 519 H ALT 475 H Lactate Dehydrogenase Total Creatine Kinase Troponin T 1.300 H* C-Reactive Protein Albumin Urine WBC (Auto) Urine Creatinine Urine Total Protein Complement C3 Coronavirus (PCR) Hepatitis C Antibody 05/04/21 05/04/21 05/04/21 07:25 08:42 08:42 WBC RBC Hgb Hct MCV MCHC RDW Lymph % (Auto) [place] % (Auto) Lymph # (Auto) [place] # (Auto) Seg Neutrophils % Seg Neuts % (Manual) Lymphocytes % (Manual) Monocytes % (Manual) Seg Neutrophils # Seg Neutrophils # Man Lymphocytes # (Manual) Monocytes # (Manual) PT D-Dimer 579.49 H Heparin Anti-Xa Level ABG pH ABG pO2 ABG HCO3 ABG O2 Saturation ABG Base Excess ABG Hemoglobin Sodium Potassium Chloride Carbon Dioxide BUN Creatinine Glucose POC Glucose Calcium Ferritin Total Bilirubin AST ALT Lactate Dehydrogenase Total Creatine Kinase 406 H Troponin T 1.230 H* C-Reactive Protein Albumin Urine WBC (Auto) Urine Creatinine Urine Total Protein Complement C3 Coronavirus (PCR) Hepatitis C Antibody 05/04/21 05/04/21 05/04/21 10:13 13:34 18:14 WBC RBC Hgb 8.8 L Hct 26.6 L MCV MCHC RDW Lymph % (Auto) [place] % (Auto) Lymph # (Auto) [place] # (Auto) Seg Neutrophils % Seg Neuts % (Manual) Lymphocytes % (Manual) Monocytes % (Manual) Seg Neutrophils # Seg Neutrophils # Man Lymphocytes # (Manual) Monocytes # (Manual) PT D-Dimer Heparin Anti-Xa Level < 0.10 L ABG pH ABG pO2 ABG HCO3 ABG O2 Saturation ABG Base Excess ABG Hemoglobin Sodium Potassium Chloride Carbon Dioxide BUN Creatinine Glucose POC Glucose Calcium Ferritin Total Bilirubin AST ALT Lactate Dehydrogenase Total Creatine Kinase Troponin T 1.400 H* C-Reactive Protein Albumin Urine WBC (Auto) Urine Creatinine Urine Total Protein Complement C3 Coronavirus (PCR) Hepatitis C Antibody 05/05/21 05/05/21 05/05/21 03:40 03:40 03:40 WBC RBC Hgb Hct MCV MCHC RDW Lymph % (Auto) [place] % (Auto) Lymph # (Auto) [place] # (Auto) Seg Neutrophils % Seg Neuts % (Manual) Lymphocytes % (Manual) Monocytes % (Manual) Seg Neutrophils # Seg Neutrophils # Man Lymphocytes # (Manual) Monocytes # (Manual) PT D-Dimer Heparin Anti-Xa Level 0.11 L ABG pH ABG pO2 ABG HCO3 ABG O2 Saturation ABG Base Excess ABG Hemoglobin Sodium Potassium 3.3 L Chloride Carbon Dioxide BUN 59 H Creatinine 2.6 H Glucose 139 H POC Glucose Calcium Ferritin Total Bilirubin AST ALT Lactate Dehydrogenase Total Creatine Kinase Troponin T C-Reactive Protein Albumin Urine WBC (Auto) Urine Creatinine Urine Total Protein Complement C3 Coronavirus (PCR) Hepatitis C Antibody Reactive A 05/05/21 05/05/21 05/05/21 03:40 08:30 09:57 WBC RBC Hgb Hct MCV MCHC RDW Lymph % (Auto) [place] % (Auto) Lymph # (Auto) [place] # (Auto) Seg Neutrophils % Seg Neuts % (Manual) Lymphocytes % (Manual) Monocytes % (Manual) Seg Neutrophils # Seg Neutrophils # Man Lymphocytes # (Manual) Monocytes # (Manual) PT D-Dimer Heparin Anti-Xa Level ABG pH ABG pO2 ABG HCO3 ABG O2 Saturation ABG Base Excess ABG Hemoglobin Sodium Potassium Chloride Carbon Dioxide BUN Creatinine Glucose POC Glucose Calcium Ferritin Total Bilirubin AST ALT Lactate Dehydrogenase Total Creatine Kinase Troponin T C-Reactive Protein Albumin Urine WBC (Auto) Urine Creatinine 100.8 H Urine Total Protein Complement C3 72 L Coronavirus (PCR) Positive A Hepatitis C Antibody 05/05/21 05/05/21 05/05/21 11:28 17:00 19:51 WBC RBC Hgb Hct MCV MCHC RDW Lymph % (Auto) [place] % (Auto) Lymph # (Auto) [place] # (Auto) Seg Neutrophils % Seg Neuts % (Manual) Lymphocytes % (Manual) Monocytes % (Manual) Seg Neutrophils # Seg Neutrophils # Man Lymphocytes # (Manual) Monocytes # (Manual) PT D-Dimer Heparin Anti-Xa Level 0.10 L 0.22 L ABG pH 7.304 L ABG pO2 140.8 H ABG HCO3 ABG O2 Saturation ABG Base Excess -2.1 L ABG Hemoglobin 10.2 L Sodium Potassium Chloride Carbon Dioxide BUN Creatinine Glucose POC Glucose Calcium Ferritin Total Bilirubin AST ALT Lactate Dehydrogenase Total Creatine Kinase Troponin T C-Reactive Protein Albumin Urine WBC (Auto) Urine Creatinine Urine Total Protein Complement C3 Coronavirus (PCR) Hepatitis C Antibody 05/06/21 05/06/21 05/06/21 03:47 06:15 17:53 WBC RBC Hgb 9.0 L Hct 27.8 L MCV MCHC RDW Lymph % (Auto) [place] % (Auto) Lymph # (Auto) [place] # (Auto) Seg Neutrophils % Seg Neuts % (Manual) Lymphocytes % (Manual) Monocytes % (Manual) Seg Neutrophils # Seg Neutrophils # Man Lymphocytes # (Manual) Monocytes # (Manual) PT D-Dimer Heparin Anti-Xa Level 0.10 L ABG pH ABG pO2 143.5 H ABG HCO3 ABG O2 Saturation ABG Base Excess -2.4 L ABG Hemoglobin 6.9 L Sodium Potassium Chloride Carbon Dioxide BUN Creatinine Glucose POC Glucose Calcium Ferritin Total Bilirubin AST ALT Lactate Dehydrogenase Total Creatine Kinase Troponin T C-Reactive Protein Albumin Urine WBC (Auto) Urine Creatinine Urine Total Protein Complement C3 Coronavirus (PCR) Hepatitis C Antibody 05/07/21 05/07/21 05/07/21 00:07 03:22 03:45 WBC RBC Hgb Hct MCV MCHC RDW Lymph % (Auto) [place] % (Auto) Lymph # (Auto) [place] # (Auto) Seg Neutrophils % Seg Neuts % (Manual) Lymphocytes % (Manual) Monocytes % (Manual) Seg Neutrophils # Seg Neutrophils # Man Lymphocytes # (Manual) Monocytes # (Manual) PT D-Dimer Heparin Anti-Xa Level < 0.10 L ABG pH ABG pO2 104.3 H ABG HCO3 ABG O2 Saturation ABG Base Excess -2.6 L ABG Hemoglobin 9.1 L Sodium Potassium Chloride 107.1 H Carbon Dioxide 20 L BUN 56 H Creatinine 2.9 H Glucose POC Glucose Calcium Ferritin Total Bilirubin AST ALT Lactate Dehydrogenase Total Creatine Kinase Troponin T C-Reactive Protein Albumin Urine WBC (Auto) Urine Creatinine Urine Total Protein Complement C3 Coronavirus (PCR) Hepatitis C Antibody 05/07/21 05/07/21 05/07/21 07:44 16:28 22:41 WBC RBC Hgb Hct MCV MCHC RDW Lymph % (Auto) [place] % (Auto) Lymph # (Auto) [place] # (Auto) Seg Neutrophils % Seg Neuts % (Manual) Lymphocytes % (Manual) Monocytes % (Manual) Seg Neutrophils # Seg Neutrophils # Man Lymphocytes # (Manual) Monocytes # (Manual) PT D-Dimer Heparin Anti-Xa Level < 0.10 L 0.10 L < 0.10 L ABG pH ABG pO2 ABG HCO3 ABG O2 Saturation ABG Base Excess ABG Hemoglobin Sodium Potassium Chloride Carbon Dioxide BUN Creatinine Glucose POC Glucose Calcium Ferritin Total Bilirubin AST ALT Lactate Dehydrogenase Total Creatine Kinase Troponin T C-Reactive Protein Albumin Urine WBC (Auto) Urine Creatinine Urine Total Protein Complement C3 Coronavirus (PCR) Hepatitis C Antibody 05/08/21 05/08/21 05/08/21 03:25 04:34 07:30 WBC 12.4 H RBC 3.02 L Hgb 9.5 L Hct 29.2 L MCV 97 H MCHC RDW 16.7 H Lymph % (Auto) 8.1 L [place] % (Auto) 11.0 H Lymph # (Auto) 1.0 L [place] # (Auto) 1.4 H Seg Neutrophils % 80.1 H Seg Neuts % (Manual) Lymphocytes % (Manual) Monocytes % (Manual) Seg Neutrophils # 9.9 H Seg Neutrophils # Man Lymphocytes # (Manual) Monocytes # (Manual) PT D-Dimer Heparin Anti-Xa Level ABG pH ABG pO2 139.0 H ABG HCO3 ABG O2 Saturation ABG Base Excess ABG Hemoglobin 8.8 L Sodium Potassium Chloride 110.5 H Carbon Dioxide BUN 59 H Creatinine 2.8 H Glucose 103 H POC Glucose Calcium Ferritin Total Bilirubin AST ALT 327 H Lactate Dehydrogenase Total Creatine Kinase Troponin T C-Reactive Protein Albumin 3.1 L Urine WBC (Auto) Urine Creatinine Urine Total Protein Complement C3 Coronavirus (PCR) Hepatitis C Antibody 05/09/21 05/09/21 05/09/21 04:10 04:20 04:20 WBC 11.7 H RBC 2.79 L Hgb 8.7 L Hct 26.5 L MCV 95 H MCHC RDW 16.2 H Lymph % (Auto) [place] % (Auto) Lymph # (Auto) [place] # (Auto) Seg Neutrophils % Seg Neuts % (Manual) Lymphocytes % (Manual) Monocytes % (Manual) Seg Neutrophils # Seg Neutrophils # Man Lymphocytes # (Manual) Monocytes # (Manual) PT D-Dimer Heparin Anti-Xa Level ABG pH ABG pO2 161.6 H ABG HCO3 ABG O2 Saturation ABG Base Excess ABG Hemoglobin 8.3 L Sodium 151 H Potassium Chloride 114.5 H Carbon Dioxide 21 L BUN 57 H Creatinine 2.4 H Glucose POC Glucose Calcium Ferritin Total Bilirubin AST ALT 210 H Lactate Dehydrogenase Total Creatine Kinase Troponin T C-Reactive Protein Albumin 2.9 L Urine WBC (Auto) Urine Creatinine Urine Total Protein Complement C3 Coronavirus (PCR) Hepatitis C Antibody 05/09/21 05/09/21 05/09/21 09:48 09:48 13:22 WBC 11.6 H RBC 3.00 L Hgb 9.0 L Hct 28.4 L MCV MCHC RDW 15.9 H Lymph % (Auto) 5.9 L [place] % (Auto) 8.9 H Lymph # (Auto) 0.7 L [place] # (Auto) 1.0 H Seg Neutrophils % 84.3 H Seg Neuts % (Manual) Lymphocytes % (Manual) Monocytes % (Manual) Seg Neutrophils # 9.8 H Seg Neutrophils # Man Lymphocytes # (Manual) Monocytes # (Manual) PT D-Dimer Heparin Anti-Xa Level ABG pH ABG pO2 ABG HCO3 ABG O2 Saturation ABG Base Excess ABG Hemoglobin Sodium Potassium Chloride Carbon Dioxide BUN Creatinine Glucose POC Glucose Calcium Ferritin Total Bilirubin AST ALT Lactate Dehydrogenase Total Creatine Kinase Troponin T C-Reactive Protein 8.70 H Albumin Urine WBC (Auto) 25.0 H Urine Creatinine Urine Total Protein Complement C3 Coronavirus (PCR) Hepatitis C Antibody 05/09/21 05/09/21 05/10/21 15:20 18:16 04:57 WBC RBC 2.87 L Hgb 8.8 L Hct 27.0 L MCV MCHC RDW 15.9 H Lymph % (Auto) [place] % (Auto) Lymph # (Auto) [place] # (Auto) Seg Neutrophils % Seg Neuts % (Manual) Lymphocytes % (Manual) Monocytes % (Manual) Seg Neutrophils # Seg Neutrophils # Man Lymphocytes # (Manual) Monocytes # (Manual) PT D-Dimer Heparin Anti-Xa Level ABG pH ABG pO2 102.0 H ABG HCO3 ABG O2 Saturation ABG Base Excess -2.8 L ABG Hemoglobin 9.0 L Sodium Potassium Chloride Carbon Dioxide BUN Creatinine Glucose POC Glucose 130 H Calcium Ferritin Total Bilirubin AST ALT Lactate Dehydrogenase Total Creatine Kinase Troponin T C-Reactive Protein Albumin Urine WBC (Auto) Urine Creatinine Urine Total Protein Complement C3 Coronavirus (PCR) Hepatitis C Antibody 05/10/21 05/10/21 05/10/21 04:57 04:57 04:57 WBC RBC Hgb Hct MCV MCHC RDW Lymph % (Auto) [place] % (Auto) Lymph # (Auto) [place] # (Auto) Seg Neutrophils % Seg Neuts % (Manual) Lymphocytes % (Manual) Monocytes % (Manual) Seg Neutrophils # Seg Neutrophils # Man Lymphocytes # (Manual) Monocytes # (Manual) PT D-Dimer 1546.78 H Heparin Anti-Xa Level ABG pH ABG pO2 ABG HCO3 ABG O2 Saturation ABG Base Excess ABG Hemoglobin Sodium 148 H Potassium Chloride 114.9 H Carbon Dioxide 21 L BUN 57 H Creatinine 2.3 H Glucose 157 H POC Glucose Calcium Ferritin 888.2 H Total Bilirubin AST ALT Lactate Dehydrogenase 289 H Total Creatine Kinase Troponin T C-Reactive Protein 6.80 H Albumin Urine WBC (Auto) Urine Creatinine Urine Total Protein Complement C3 Coronavirus (PCR) Hepatitis C Antibody 05/10/21 05/10/21 05/10/21 05:09 08:04 11:03 WBC RBC Hgb Hct MCV MCHC RDW Lymph % (Auto) [place] % (Auto) Lymph # (Auto) [place] # (Auto) Seg Neutrophils % Seg Neuts % (Manual) Lymphocytes % (Manual) Monocytes % (Manual) Seg Neutrophils # Seg Neutrophils # Man Lymphocytes # (Manual) Monocytes # (Manual) PT D-Dimer Heparin Anti-Xa Level ABG pH 7.473 H ABG pO2 114.6 H ABG HCO3 ABG O2 Saturation ABG Base Excess ABG Hemoglobin 9.5 L Sodium Potassium Chloride Carbon Dioxide BUN Creatinine Glucose POC Glucose 152 H Calcium Ferritin Total Bilirubin AST ALT Lactate Dehydrogenase Total Creatine Kinase Troponin T C-Reactive Protein Albumin Urine WBC (Auto) Urine Creatinine 100.8 H Urine Total Protein 42 H Complement C3 Coronavirus (PCR) Hepatitis C Antibody 05/10/21 05/10/21 05/10/21 13:07 18:01 23:31 WBC RBC Hgb Hct MCV MCHC RDW Lymph % (Auto) [place] % (Auto) Lymph # (Auto) [place] # (Auto) Seg Neutrophils % Seg Neuts % (Manual) Lymphocytes % (Manual) Monocytes % (Manual) Seg Neutrophils # Seg Neutrophils # Man Lymphocytes # (Manual) Monocytes # (Manual) PT D-Dimer Heparin Anti-Xa Level ABG pH ABG pO2 ABG HCO3 ABG O2 Saturation ABG Base Excess ABG Hemoglobin Sodium Potassium Chloride Carbon Dioxide BUN Creatinine Glucose POC Glucose 150 H 189 H 142 H Calcium Ferritin Total Bilirubin AST ALT Lactate Dehydrogenase Total Creatine Kinase Troponin T C-Reactive Protein Albumin Urine WBC (Auto) Urine Creatinine Urine Total Protein Complement C3 Coronavirus (PCR) Hepatitis C Antibody 05/10/21 05/11/21 05/11/21 Unknown 05:25 06:53 WBC RBC Hgb Hct MCV MCHC RDW Lymph % (Auto) [place] % (Auto) Lymph # (Auto) [place] # (Auto) Seg Neutrophils % Seg Neuts % (Manual) Lymphocytes % (Manual) Monocytes % (Manual) Seg Neutrophils # Seg Neutrophils # Man Lymphocytes # (Manual) Monocytes # (Manual) PT D-Dimer Heparin Anti-Xa Level ABG pH ABG pO2 126.6 H ABG HCO3 ABG O2 Saturation ABG Base Excess ABG Hemoglobin 9.2 L Sodium 150 H Potassium Chloride 116.6 H Carbon Dioxide 21 L BUN 62 H Creatinine 2.5 H Glucose 142 H POC Glucose 163 H Calcium Ferritin Total Bilirubin AST ALT Lactate Dehydrogenase Total Creatine Kinase Troponin T C-Reactive Protein Albumin Urine WBC (Auto) Urine Creatinine Urine Total Protein Complement C3 Coronavirus (PCR) Hepatitis C Antibody 05/11/21 05/11/21 05/11/21 06:53 11:06 13:51 WBC RBC 3.07 L Hgb 9.3 L Hct 29.0 L MCV 95 H MCHC RDW 16.1 H Lymph % (Auto) [place] % (Auto) Lymph # (Auto) [place] # (Auto) Seg Neutrophils % Seg Neuts % (Manual) Lymphocytes % (Manual) Monocytes % (Manual) Seg Neutrophils # Seg Neutrophils # Man Lymphocytes # (Manual) Monocytes # (Manual) PT D-Dimer Heparin Anti-Xa Level ABG pH ABG pO2 74.9 L ABG HCO3 ABG O2 Saturation ABG Base Excess -3.3 L ABG Hemoglobin 10.8 L Sodium Potassium Chloride Carbon Dioxide BUN Creatinine Glucose POC Glucose 145 H Calcium Ferritin Total Bilirubin AST ALT Lactate Dehydrogenase Total Creatine Kinase Troponin T C-Reactive Protein Albumin Urine WBC (Auto) Urine Creatinine Urine Total Protein Complement C3 Coronavirus (PCR) Hepatitis C Antibody 05/11/21 05/11/21 05/11/21 14:43 14:43 15:47 WBC RBC Hgb 9.2 L Hct 29.7 L MCV MCHC RDW Lymph % (Auto) [place] % (Auto) Lymph # (Auto) [place] # (Auto) Seg Neutrophils % Seg Neuts % (Manual) Lymphocytes % (Manual) Monocytes % (Manual) Seg Neutrophils # Seg Neutrophils # Man Lymphocytes # (Manual) Monocytes # (Manual) PT 15.6 H D-Dimer Heparin Anti-Xa Level ABG pH ABG pO2 ABG HCO3 ABG O2 Saturation ABG Base Excess ABG Hemoglobin Sodium Potassium Chloride Carbon Dioxide BUN Creatinine Glucose POC Glucose 137 H Calcium Ferritin Total Bilirubin AST ALT Lactate Dehydrogenase Total Creatine Kinase Troponin T C-Reactive Protein Albumin Urine WBC (Auto) Urine Creatinine Urine Total Protein Complement C3 Coronavirus (PCR) Hepatitis C Antibody 05/12/21 05/12/21 05/12/21 00:04 05:07 07:19 WBC 11.9 H RBC 3.00 L Hgb 9.1 L Hct 28.9 L MCV 96 H MCHC RDW 16.7 H Lymph % (Auto) 11.5 L [place] % (Auto) 8.2 H Lymph # (Auto) [place] # (Auto) 1.0 H Seg Neutrophils % 80.0 H Seg Neuts % (Manual) Lymphocytes % (Manual) Monocytes % (Manual) Seg Neutrophils # 9.6 H Seg Neutrophils # Man Lymphocytes # (Manual) Monocytes # (Manual) PT D-Dimer Heparin Anti-Xa Level ABG pH ABG pO2 ABG HCO3 ABG O2 Saturation ABG Base Excess ABG Hemoglobin Sodium Potassium Chloride Carbon Dioxide BUN Creatinine Glucose POC Glucose 121 H 117 H Calcium Ferritin Total Bilirubin AST ALT Lactate Dehydrogenase Total Creatine Kinase Troponin T C-Reactive Protein Albumin Urine WBC (Auto) Urine Creatinine Urine Total Protein Complement C3 Coronavirus (PCR) Hepatitis C Antibody 05/12/21 05/12/21 05/12/21 07:19 07:19 07:19 WBC RBC Hgb Hct MCV MCHC RDW Lymph % (Auto) [place] % (Auto) Lymph # (Auto) [place] # (Auto) Seg Neutrophils % Seg Neuts % (Manual) Lymphocytes % (Manual) Monocytes % (Manual) Seg Neutrophils # Seg Neutrophils # Man Lymphocytes # (Manual) Monocytes # (Manual) PT D-Dimer 2730.61 H Heparin Anti-Xa Level ABG pH ABG pO2 ABG HCO3 ABG O2 Saturation ABG Base Excess ABG Hemoglobin Sodium 146 H Potassium 5.1 H Chloride 112.4 H Carbon Dioxide 21 L BUN 61 H Creatinine 2.2 H Glucose 136 H POC Glucose Calcium 8.1 L Ferritin 640.2 H Total Bilirubin AST ALT Lactate Dehydrogenase 314 H Total Creatine Kinase Troponin T C-Reactive Protein 1.60 H Albumin Urine WBC (Auto) Urine Creatinine Urine Total Protein Complement C3 Coronavirus (PCR) Hepatitis C Antibody 05/12/21 05/12/21 05/12/21 11:10 16:10 16:38 WBC RBC Hgb Hct MCV MCHC RDW Lymph % (Auto) [place] % (Auto) Lymph # (Auto) [place] # (Auto) Seg Neutrophils % Seg Neuts % (Manual) Lymphocytes % (Manual) Monocytes % (Manual) Seg Neutrophils # Seg Neutrophils # Man Lymphocytes # (Manual) Monocytes # (Manual) PT D-Dimer Heparin Anti-Xa Level 0.20 L ABG pH ABG pO2 ABG HCO3 ABG O2 Saturation ABG Base Excess ABG Hemoglobin Sodium Potassium Chloride Carbon Dioxide BUN Creatinine Glucose POC Glucose 131 H 157 H Calcium Ferritin Total Bilirubin AST ALT Lactate Dehydrogenase Total Creatine Kinase Troponin T C-Reactive Protein Albumin Urine WBC (Auto) Urine Creatinine Urine Total Protein Complement C3 Coronavirus (PCR) Hepatitis C Antibody 05/12/21 05/13/21 05/13/21 23:30 00:12 04:20 WBC RBC Hgb Hct MCV MCHC RDW Lymph % (Auto) [place] % (Auto) Lymph # (Auto) [place] # (Auto) Seg Neutrophils % Seg Neuts % (Manual) Lymphocytes % (Manual) Monocytes % (Manual) Seg Neutrophils # Seg Neutrophils # Man Lymphocytes # (Manual) Monocytes # (Manual) PT D-Dimer Heparin Anti-Xa Level 0.13 L ABG pH ABG pO2 ABG HCO3 ABG O2 Saturation ABG Base Excess ABG Hemoglobin Sodium Potassium Chloride 111.2 H Carbon Dioxide BUN 53 H Creatinine 1.9 H Glucose 121 H POC Glucose 115 H Calcium 8.3 L Ferritin Total Bilirubin AST ALT Lactate Dehydrogenase Total Creatine Kinase Troponin T C-Reactive Protein Albumin Urine WBC (Auto) Urine Creatinine Urine Total Protein Complement C3 Coronavirus (PCR) Hepatitis C Antibody 05/13/21 05/13/21 05/13/21 04:20 11:15 11:29 WBC 13.1 H RBC 2.86 L Hgb 8.5 L Hct 26.9 L MCV MCHC RDW 15.7 H Lymph % (Auto) [place] % (Auto) Lymph # (Auto) [place] # (Auto) Seg Neutrophils % Seg Neuts % (Manual) Lymphocytes % (Manual) Monocytes % (Manual) Seg Neutrophils # Seg Neutrophils # Man Lymphocytes # (Manual) Monocytes # (Manual) PT D-Dimer Heparin Anti-Xa Level ABG pH 7.456 H ABG pO2 106.0 H ABG HCO3 ABG O2 Saturation ABG Base Excess ABG Hemoglobin 7.1 L Sodium Potassium Chloride Carbon Dioxide BUN Creatinine Glucose POC Glucose 121 H Calcium Ferritin Total Bilirubin AST ALT Lactate Dehydrogenase Total Creatine Kinase Troponin T C-Reactive Protein Albumin Urine WBC (Auto) Urine Creatinine Urine Total Protein Complement C3 Coronavirus (PCR) Hepatitis C Antibody 05/13/21 05/13/21 05/14/21 16:38 23:43 04:26 WBC 14.2 H RBC 3.11 L Hgb 9.4 L Hct 29.3 L MCV MCHC RDW 15.4 H Lymph % (Auto) Meade % (Auto) Lymph # (Auto) Meade # (Auto) Seg Neutrophils % Seg Neuts % (Manual) Lymphocytes % (Manual) Monocytes % (Manual) Seg Neutrophils # Seg Neutrophils # Man Lymphocytes # (Manual) Monocytes # (Manual) PT D-Dimer Heparin Anti-Xa Level ABG pH ABG pO2 ABG HCO3 ABG O2 Saturation ABG Base Excess ABG Hemoglobin Sodium Potassium Chloride Carbon Dioxide BUN Creatinine Glucose POC Glucose 119 H 55 L Calcium Ferritin Total Bilirubin AST ALT Lactate Dehydrogenase Total Creatine Kinase Troponin T C-Reactive Protein Albumin Urine WBC (Auto) Urine Creatinine Urine Total Protein Complement C3 Coronavirus (PCR) Hepatitis C Antibody 05/14/21 05/14/21 05/14/21 04:26 05:26 06:51 WBC RBC Hgb Hct MCV MCHC RDW Lymph % (Auto) Meade % (Auto) Lymph # (Auto) Meade # (Auto) Seg Neutrophils % Seg Neuts % (Manual) Lymphocytes % (Manual) Monocytes % (Manual) Seg Neutrophils # Seg Neutrophils # Man Lymphocytes # (Manual) Monocytes # (Manual) PT D-Dimer Heparin Anti-Xa Level ABG pH ABG pO2 ABG HCO3 ABG O2 Saturation ABG Base Excess ABG Hemoglobin Sodium Potassium 3.4 L Chloride 107.6 H Carbon Dioxide BUN 42 H Creatinine 1.9 H Glucose POC Glucose 51 L 62 L Calcium Ferritin Total Bilirubin AST ALT Lactate Dehydrogenase Total Creatine Kinase Troponin T C-Reactive Protein Albumin Urine WBC (Auto) Urine Creatinine Urine Total Protein Complement C3 Coronavirus (PCR) Hepatitis C Antibody 05/14/21 05/14/21 05/14/21 09:58 12:05 12:08 WBC RBC Hgb Hct MCV MCHC RDW Lymph % (Auto) Meade % (Auto) Lymph # (Auto) Meade # (Auto) Seg Neutrophils % Seg Neuts % (Manual) Lymphocytes % (Manual) Monocytes % (Manual) Seg Neutrophils # Seg Neutrophils # Man Lymphocytes # (Manual) Monocytes # (Manual) PT D-Dimer Heparin Anti-Xa Level ABG pH ABG pO2 ABG HCO3 ABG O2 Saturation ABG Base Excess ABG Hemoglobin Sodium Potassium 3.4 L Chloride Carbon Dioxide BUN 36 H Creatinine 1.8 H Glucose 133 H POC Glucose 60 L 127 H Calcium Ferritin Total Bilirubin AST ALT Lactate Dehydrogenase Total Creatine Kinase Troponin T C-Reactive Protein Albumin Urine WBC (Auto) Urine Creatinine Urine Total Protein Complement C3 Coronavirus (PCR) Hepatitis C Antibody 05/14/21 05/14/21 05/15/21 17:20 23:37 05:34 WBC RBC Hgb Hct MCV MCHC RDW Lymph % (Auto) Meade % (Auto) Lymph # (Auto) Meade # (Auto) Seg Neutrophils % Seg Neuts % (Manual) Lymphocytes % (Manual) Monocytes % (Manual) Seg Neutrophils # Seg Neutrophils # Man Lymphocytes # (Manual) Monocytes # (Manual) PT D-Dimer Heparin Anti-Xa Level ABG pH ABG pO2 ABG HCO3 ABG O2 Saturation ABG Base Excess ABG Hemoglobin Sodium Potassium Chloride Carbon Dioxide BUN Creatinine Glucose POC Glucose 144 H 115 H 119 H Calcium Ferritin Total Bilirubin AST ALT Lactate Dehydrogenase Total Creatine Kinase Troponin T C-Reactive Protein Albumin Urine WBC (Auto) Urine Creatinine Urine Total Protein Complement C3 Coronavirus (PCR) Hepatitis C Antibody 05/15/21 05/15/21 05/15/21 07:26 07:26 14:35 WBC 13.8 H RBC 3.32 L Hgb 10.0 L Hct 31.2 L MCV MCHC RDW 16.0 H Lymph % (Auto) Meade % (Auto) Lymph # (Auto) Meade # (Auto) Seg Neutrophils % Seg Neuts % (Manual) Lymphocytes % (Manual) Monocytes % (Manual) Seg Neutrophils # Seg Neutrophils # Man Lymphocytes # (Manual) Monocytes # (Manual) PT D-Dimer Heparin Anti-Xa Level ABG pH ABG pO2 ABG HCO3 ABG O2 Saturation ABG Base Excess ABG Hemoglobin Sodium 149 H D Potassium 3.5 L Chloride 113.2 H Carbon Dioxide BUN 29 H Creatinine 1.8 H Glucose 113 H POC Glucose 143 H Calcium Ferritin Total Bilirubin AST ALT Lactate Dehydrogenase Total Creatine Kinase Troponin T C-Reactive Protein Albumin Urine WBC (Auto) Urine Creatinine Urine Total Protein Complement C3 Coronavirus (PCR) Hepatitis C Antibody 05/16/21 05/16/21 05/16/21 06:12 08:43 10:05 WBC RBC Hgb Hct MCV MCHC RDW Lymph % (Auto) Meade % (Auto) Lymph # (Auto) Meade # (Auto) Seg Neutrophils % Seg Neuts % (Manual) Lymphocytes % (Manual) Monocytes % (Manual) Seg Neutrophils # Seg Neutrophils # Man Lymphocytes # (Manual) Monocytes # (Manual) PT D-Dimer Heparin Anti-Xa Level 0.21 L ABG pH ABG pO2 240.8 H ABG HCO3 ABG O2 Saturation 99.4 H ABG Base Excess -2.6 L ABG Hemoglobin 10.7 L Sodium Potassium Chloride Carbon Dioxide BUN Creatinine Glucose POC Glucose 34 L Calcium Ferritin Total Bilirubin AST ALT Lactate Dehydrogenase Total Creatine Kinase Troponin T C-Reactive Protein Albumin Urine WBC (Auto) Urine Creatinine Urine Total Protein Complement C3 Coronavirus (PCR) Hepatitis C Antibody 05/16/21 05/16/21 05/16/21 10:21 10:21 13:14 WBC 27.6 H RBC Hgb 11.4 L Hct MCV 99 H MCHC 30 L RDW 18.1 H Lymph % (Auto) Meade % (Auto) Lymph # (Auto) Meade # (Auto) Seg Neutrophils % Seg Neuts % (Manual) 83.0 H Lymphocytes % (Manual) 4.0 L Monocytes % (Manual) 9.0 H Seg Neutrophils # Seg Neutrophils # Man 22.9 H Lymphocytes # (Manual) 1.1 L Monocytes # (Manual) 2.5 H PT D-Dimer Heparin Anti-Xa Level ABG pH ABG pO2 ABG HCO3 ABG O2 Saturation ABG Base Excess ABG Hemoglobin Sodium Potassium Chloride 108.8 H Carbon Dioxide 17 L BUN 26 H Creatinine 1.9 H Glucose 141 H POC Glucose Calcium Ferritin Total Bilirubin AST ALT Lactate Dehydrogenase Total Creatine Kinase Troponin T 0.503 H* C-Reactive Protein Albumin 3.1 L Urine WBC (Auto) Urine Creatinine Urine Total Protein Complement C3 Coronavirus (PCR) Hepatitis C Antibody 05/16/21 05/17/21 05/17/21 18:40 00:02 04:52 WBC RBC Hgb 8.8 L Hct 28.5 L D MCV MCHC RDW Lymph % (Auto) Meade % (Auto) Lymph # (Auto) Meade # (Auto) Seg Neutrophils % Seg Neuts % (Manual) Lymphocytes % (Manual) Monocytes % (Manual) Seg Neutrophils # Seg Neutrophils # Man Lymphocytes # (Manual) Monocytes # (Manual) PT D-Dimer Heparin Anti-Xa Level ABG pH ABG pO2 ABG HCO3 ABG O2 Saturation ABG Base Excess ABG Hemoglobin Sodium Potassium Chloride Carbon Dioxide BUN Creatinine Glucose POC Glucose 114 H Calcium Ferritin Total Bilirubin AST ALT Lactate Dehydrogenase Total Creatine Kinase Troponin T 0.400 H* D C-Reactive Protein Albumin Urine WBC (Auto) Urine Creatinine Urine Total Protein Complement C3 Coronavirus (PCR) Hepatitis C Antibody 05/17/21 05/17/21 05/17/21 04:52 05:15 06:50 WBC RBC Hgb Hct MCV MCHC RDW Lymph % (Auto) Meade % (Auto) Lymph # (Auto) [place]ade # (Auto) Seg Neutrophils % Seg Neuts % (Manual) Lymphocytes % (Manual) Monocytes % (Manual) Seg Neutrophils # Seg Neutrophils # Man Lymphocytes # (Manual) Monocytes # (Manual) PT D-Dimer Heparin Anti-Xa Level ABG pH ABG pO2 193.7 H ABG HCO3 27.7 H ABG O2 Saturation 99.2 H ABG Base Excess 3.4 H ABG Hemoglobin 9.2 L Sodium 146 H Potassium Chloride 110.3 H Carbon Dioxide BUN 33 H Creatinine 2.3 H Glucose 120 H POC Glucose 109 H Calcium Ferritin Total Bilirubin AST ALT Lactate Dehydrogenase Total Creatine Kinase Troponin T C-Reactive Protein Albumin Urine WBC (Auto) Urine Creatinine Urine Total Protein Complement C3 Coronavirus (PCR) Hepatitis C Antibody 05/17/21 10:30 WBC RBC Hgb Hct MCV MCHC RDW Lymph % (Auto) Meade % (Auto) Lymph # (Auto) [place]ade # (Auto) Seg Neutrophils % Seg Neuts % (Manual) Lymphocytes % (Manual) Monocytes % (Manual) Seg Neutrophils # Seg Neutrophils # Man Lymphocytes # (Manual) Monocytes # (Manual) PT D-Dimer Heparin Anti-Xa Level ABG pH 7.457 H ABG pO2 162.5 H ABG HCO3 27.7 H ABG O2 Saturation ABG Base Excess 3.6 H ABG Hemoglobin 10.1 L Sodium Potassium Chloride Carbon Dioxide BUN Creatinine Glucose POC Glucose Calcium Ferritin Total Bilirubin AST ALT Lactate Dehydrogenase Total Creatine Kinase Troponin T C-Reactive Protein Albumin Urine WBC (Auto) Urine Creatinine Urine Total Protein Complement C3 Coronavirus (PCR) Hepatitis C Antibody Chest x-ray: image reviewed (improved bilateral infiltrates) Allied health notes reviewed: nursing
--- NOTE | 2021-05-17 12:22 | Progress Note ---
Assessment and Plan Patient is a 56-year-old male with a past medical history of hypertension, paroxysmal SVT, medical noncompliance, smoking, substance abuse who presented to the ED with a complaint of shortness of breath and dyspnea on exertion x1 month however with significantly worsening symptoms since yesterday. NSTEMI Hypertensive Emergency COVID-19 Acute Bilateral DVT Afib YE Hepatitis C SOB Medical noncompliance Polysubstance abuse-patient tested positive for methamphetamines Echo 05/04/2021-EF 35 to 40%. Moderate concentric LVH. Moderate global hypokinesis of left ventricle. Mild mitral regurgitation. Mild pulmonary hypertension. Echocardiogram reviewed (08/27/2020): LVEF is 50 to 55%. Mild to moderate concentric LVF. Severe diastolic dysfunction is present (restrictive filling). Right ventricle is mildly hypokinetic. RVSP is 48 mmHg. No valvular abnormali ties. Plan: Patient remains in sinus rhythm Continue asa and statin Patient currently on heparin gtt for anticoagulation Continue metoprolol 50 mg p.o. 3 times daily, hydralizine Patient seen in conjunction with Dr. Gamez who agrees with this plan of care - Patient Problems (1) ARF (acute renal failure) Current Visit: Yes Status: Acute (2) Elevated d-dimer Current Visit: Yes Status: Acute (3) LFT elevation Current Visit: Yes Status: Acute (4) NSTEMI (non-ST elevated myocardial infarction) Current Visit: Yes Status: Acute (5) Polysubstance abuse Current Visit: Yes Status: Acute (6) SOB (shortness of breath) Current Visit: Yes Status: Acute (7) Hypertension Current Visit: Yes Status: Chronic (8) Noncompliance with medication regimen Current Visit: Yes Status: Chronic Subjective Date of service: 05/17/21 Principal diagnosis: AHRF; COVID-19 infection; NSTEMI; YE; HFrEF (35-40%); Polysubstance abuse Interval history: Patient remains intubated and sedated Patient sinus rhythm 60s on monitor Objective Vital Signs Temp Pulse Pulse Resp BP Pulse Ox 05/17/21 09:32 59 L 105/73 05/17/21 09:00 62 20 105/73 100 05/17/21 08:05 64 101/71 100 05/17/21 08:00 99.2 F 62 63 20 101/71 100 05/17/21 07:00 63 20 103/74 100 02/01/22 06:00 61 20 110/78 100 05/17/21 05:00 62 20 103/74 100 05/17/21 04:00 97.8 F 63 63 20 111/75 100 05/17/21 03:00 63 20 101/69 100 05/17/21 02:00 65 20 97/68 100 05/17/21 01:00 66 20 105/71 100 05/17/21 00:23 84 102/69 100 05/17/21 00:00 99.4 F 64 64 20 102/69 100 05/16/21 23:00 67 20 113/76 100 05/16/21 22:00 70 20 91/62 100 05/16/21 21:00 78 45 H 108/74 100 05/16/21 20:31 72 108/74 05/16/21 20:00 99.8 F H 73 73 34 H 99/72 100 05/16/21 19:00 70 26 H 105/75 100 05/16/21 18:00 68 26 H 95/61 100 05/16/21 17:00 69 26 H 87/57 100 05/16/21 16:18 70 98/70 100 05/16/21 16:00 99.7 F H 76 74 24 98/70 100 05/16/21 15:04 79 122/88 05/16/21 15:03 80 122/88 05/16/21 15:00 78 27 H 122/88 100 05/16/21 14:00 76 27 H 122/86 99 05/16/21 13:00 76 25 H 108/76 100 05/16/21 12:50 77 103/66 100 - Physical Examination General: Other (intubated and sedated) HEENT: Positive: PERRL Neck: Positive: trachea midline Cardiac: Positive: Reg Rate and Rhythm Lungs: Positive: Ventilated Respirations Neuro: Positive: Other (sedated) Abdomen: Positive: Soft Skin: Negative: Rash, Suspicious Lesions, Ulceration Extremities: Absent: edema - Labs and Meds CBC 05/17/21 Range/Units 04:52 Hgb 8.8 L (11.8-15.2) gm/dl Hct 28.5 L D (35.5-45.6) % Plt Count 328 (140-440) K/mm3 Comprehensive Metabolic Panel 05/17/21 Range/Units 04:52 Sodium 146 H (137-145) mmol/L Potassium 3.9 (3.6-5.0) mmol/L Chloride 110.3 H (98-107) mmol/L Carbon Dioxide 24 D (22-30) mmol/L BUN 33 H (9-20) mg/dL Creatinine 2.3 H (0.8-1.3) mg/dL Glucose 120 H (75-100) mg/dL Calcium 8.7 (8.4-10.2) mg/dL - Imaging and Cardiology EKG: report reviewed, image reviewed Echo: report reviewed - Telemetry EKG Rhythm: Sinus Rhythm - EKG Sinus rhythms and dysrhythmias: sinus rhythm Ventricular dysrhythmias: ventricular premature com Chamber hypertrophy or enlargement: left ventricular hypertro - Allied health notes Allied health notes reviewed: nursing
[2021-05-17] MEDS: HEPARIN/ 0.45% NACL DRIP 25,000 UNIT/500 ML BAG IV SCH (14:10)
--- NOTE | 2021-05-17 14:19 | Progress Note ---
Assessment and Plan Cultures: Blood culture 05/07/2021 no growth so far Blood culture 05/10/2021 no growth so far A/P: 56 yo M PMHx smoking, a fin, HTN, medication non-compliance #Severe COVID-19 pneumonia: Patient presented with a week of symptoms, chest x-r ay with diffuse bilateral infiltrates, admission O2 sats decreased on room air. Inflammatory markers elevated #Acute hypoxemic respiratory failure: Likely secondary to COVID-19 infection. Currently on the vent #YE: Renally dose medications Recommendations: -Dexamethasone 6 mg IV/PO daily for 10 days -Not a candidate for remdesivir -Obtain q48-72h inflammatory markers - ferritin, Ddimer, CRP, LDH -Continue Zosyn, plan 5 days though may extend if not doing better. -Anticoagulation per hospital protocol -Proning as able Thank you for the consult, we will continue to follow. Roque Bacon MD [facility] ([facility]) O: [phone] F: [phone] Subjective Date of service: 05/17/21 Principal diagnosis: AHRF; COVID-19 infection; NSTEMI; YE; HFrEF (35-40%); Polysubstance abuse Interval history: Afebrile, remains on the vent. Imaging personally reviewed: CXR: improving pneumonia bilaterally. Objective - Exam Narrative Exam: Physical exam deferred to reduce risk of transmission of COVID-19. Please refer to primary team's note. - Constitutional Vitals: Vital Signs Temp Pulse Resp BP Pulse Ox 98.7 F 63 20 110/77 100 05/17/21 12:00 05/17/21 12:00 05/17/21 12:00 05/17/21 12:00 05/17/21 12:00 Temperature -Last 24 Hours Temperature 98.7 F Temperature 99.2 F Temperature 97.8 F Temperature 99.4 F Temperature 99.8 F Temperature 99.7 F - Labs CBC & Chem 7: 05/17/21 04:52 05/17/21 04:52 Labs: Abnormal lab results 05/16/21 05/16/21 05/17/21 Range/Units 13:14 18:40 00:02 Hgb (11.8-15.2) gm/dl Hct (35.5-45.6) % ABG pH (7.350-7.450) pH Units ABG pO2 (80.0-90.0) mm Hg ABG HCO3 (20.0-26.0) mmol/L ABG O2 Saturation (95.0-99.0) % ABG Base Excess (-2.0-3.0) mmol/L ABG Hemoglobin (14.0-18.0) gm/dl Sodium (137-145) mmol/L Chloride (98-107) mmol/L BUN (9-20) mg/dL Creatinine (0.8-1.3) mg/dL Glucose (75-100) mg/dL POC Glucose 114 H (70-105) mg/dL Troponin T 0.503 H* 0.400 H* D (0.00-0.029) ng/mL 05/17/21 05/17/21 05/17/21 Range/Units 04:52 04:52 05:15 Hgb 8.8 L (11.8-15.2) gm/dl Hct 28.5 L D (35.5-45.6) % ABG pH (7.350-7.450) pH Units ABG pO2 (80.0-90.0) mm Hg ABG HCO3 (20.0-26.0) mmol/L ABG O2 Saturation (95.0-99.0) % ABG Base Excess (-2.0-3.0) mmol/L ABG Hemoglobin (14.0-18.0) gm/dl Sodium 146 H (137-145) mmol/L Chloride 110.3 H (98-107) mmol/L BUN 33 H (9-20) mg/dL Creatinine 2.3 H (0.8-1.3) mg/dL Glucose 120 H (75-100) mg/dL POC Glucose 109 H (70-105) mg/dL Troponin T (0.00-0.029) ng/mL 05/17/21 05/17/21 05/17/21 Range/Units 06:50 10:30 11:33 Hgb (11.8-15.2) gm/dl Hct (35.5-45.6) % ABG pH 7.457 H (7.350-7.450) pH Units ABG pO2 193.7 H 162.5 H (80.0-90.0) mm Hg ABG HCO3 27.7 H 27.7 H (20.0-26.0) mmol/L ABG O2 Saturation 99.2 H (95.0-99.0) % ABG Base Excess 3.4 H 3.6 H (-2.0-3.0) mmol/L ABG Hemoglobin 9.2 L 10.1 L (14.0-18.0) gm/dl Sodium (137-145) mmol/L Chloride (98-107) mmol/L BUN (9-20) mg/dL Creatinine (0.8-1.3) mg/dL Glucose (75-100) mg/dL POC Glucose 122 H (70-105) mg/dL Troponin T (0.00-0.029) ng/mL
[2021-05-17] MEDS: fentaNYL DRIP Premix 2,000 MCG/100 ML BAG IV SCH (15:00)
[2021-05-17 16:03] LABS: ABG Base Excess 2.7 mmol/L (-2.0-3.0); ABG HCO3 27.5 mmol/L (20.0-26.0); ABG Methemoglobin 0.5 % (0.0-1.5); ABG Oxygen Saturation 97.8 % (95.0-99.0); ABG PCO2 43.2 mm Hg; ABG PH 7.422 pH Units (7.350-7.450); ABG PO2 103.7 mm Hg (80.0-90.0)
[2021-05-17 16:38] LABS: Hematocrit 30.3 % (35.5-45.6); Hemoglobin 9.6 gm/dl (11.8-15.2)
[2021-05-18] MEDS: FREE WATER PO SCH ×6 (01:09→21:35)
[2021-05-18] MEDS: HEPARIN/ 0.45% NACL DRIP 25,000 UNIT/500 ML BAG IV SCH ×2 (05:03→22:32)
[2021-05-18 05:50] LABS: Hematocrit 28.7 % (35.5-45.6); Hemoglobin 8.9 gm/dl (11.8-15.2); Mean Corpuscular HGB Conc 31 % (32-34); Mean Corpuscular Volume 95 fl (84-94); Platelet Count 319 K/mm3 (140-440); Red Blood Count 3.03 M/mm3 (3.65-5.03); Red Cell Distribution Width 16.4 % (13.2-15.2)
[2021-05-18 05:59] LABS: Calcium 8.5 mg/dL (8.4-10.2)
[2021-05-18] MEDS: hydrALAZINE 25 MG TAB PO SCH ×3 (06:15→21:34)
[2021-05-18] MEDS: chlordiazePOXIDE 25 MG CAP PO SCH ×3 (06:16→23:50)
[2021-05-18] MEDS: PIPERACILLIN/TAZOBACTAM 3.375 3.375 GM/50 ML BAG IV SCH (06:16)
[2021-05-18] MEDS: METOPROLOL TARTRATE 50 MG TAB FEEDTUBE SCH ×3 (07:45→19:49)
--- NOTE | 2021-05-18 09:50 | Progress Note ---
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 UOP and lytes are stable. Creatinine is noted today * IVF prn as tolerated to maintain euvolemia, note non-oliguric urine output * hold diuresis , Na and low bp noted, hold bp meds prn * Serum sodium stable higher, continue free water flushes with TFs * Replete K prn * Renal ultrasound reviewed - will need follow up CT once stable * Continue antiHTN medications * Cardiology, ICU input noted * Dose medications for renal function * Avoid potential nephrotoxins * Strict I/O Subjective Principal diagnosis: AHRF; COVID-19 infection; NSTEMI; YE; HFrEF (35-40%); Polysubstance abuse Interval history: events noted Chart, vitals, labs reviewed. Remains confused Objective - Exam Narrative Exam: Direct examination deferred in setting of COVID-19 pandemic. Primary team exam reviewed in detail Objective - Vital Signs Vital signs: Vital Signs - 12hr 05/17/21 05/17/21 05/17/21 22:00 22:12 23:00 Temperature Pulse Rate 55 L 55 L 63 Pulse Rate [ From Monitor] Respiratory 15 13 9 L Rate Blood Pressure 118/82 118/82 118/82 O2 Sat by Pulse 100 100 100 Oximetry 05/17/21 05/18/21 05/18/21 23:54 00:00 01:00 Temperature 97.6 F Pulse Rate 62 62 60 Pulse Rate [ 62 From Monitor] Respiratory 14 15 Rate Blood Pressure 118/79 122/82 122/82 O2 Sat by Pulse 100 100 100 Oximetry 05/18/21 05/18/21 05/18/21 02:00 03:00 04:00 Temperature 98.2 F Pulse Rate 60 60 58 L Pulse Rate [ 58 L From Monitor] Respiratory 17 17 12 Rate Blood Pressure 119/78 118/79 111/76 O2 Sat by Pulse 100 100 100 Oximetry 05/18/21 05/18/21 05/18/21 04:38 05:00 06:00 Temperature Pulse Rate 61 58 L 57 L Pulse Rate [ From Monitor] Respiratory 14 16 Rate Blood Pressure 111/76 112/73 112/73 O2 Sat by Pulse 100 100 100 Oximetry 05/18/21 05/18/21 05/18/21 06:59 07:00 07:13 Temperature 98.7 F Pulse Rate 58 L 57 L Pulse Rate [ From Monitor] Respiratory 10 L Rate Blood Pressure 118/77 118/77 O2 Sat by Pulse 100 99 Oximetry 05/18/21 08:00 Temperature Pulse Rate 59 L Pulse Rate [ 58 L From Monitor] Respiratory 13 Rate Blood Pressure 118/77 O2 Sat by Pulse 100 Oximetry - Lab 05/18/21 04:15 05/18/21 04:15 Most recent lab results ABG pH 7.422 pH Units (7.350-7.450) 05/17/21 15:35 ABG pCO2 43.2 mm Hg 05/17/21 15:35 ABG pO2 103.7 mm Hg (80.0-90.0) H 05/17/21 15:35 ABG HCO3 27.5 mmol/L (20.0-26.0) H 05/17/21 15:35 ABG O2 Saturation 97.8 % (95.0-99.0) 05/17/21 15:35 Calcium 8.5 mg/dL (8.4-10.2) 05/18/21 04:15 Phosphorus 4.00 mg/dL (2.5-4.5) 05/14/21 15:44 Magnesium 2.00 mg/dL (1.7-2.3) 05/14/21 15:44 Urine Creatinine 100.8 mg/dL (0.1-20.0) H 05/10/21 11:03 Urine Sodium 61 mmol/L 05/05/21 09:57 Urine Total Protein 42 mg/dL (5-11.8) H 05/10/21 11:03 Medications & Allergies - Medications Allergies/Adverse Reactions: Allergies No Known Allergies Allergy (Verified 05/08/21 07:47) Home Medications: Home Medications Medication Instructions Recorded Confirmed Last Taken Type Cefpodoxime Proxetil 200 mg PO Q12H #10 tablet 09/11/20 Unknown Rx Famotidine [Pepcid] 20 mg PO BID #30 tablet 04/13/21 Unknown Rx Losartan [Cozaar] 100 mg PO QDAY #60 tablet 04/13/21 Unknown Rx Metoprolol Xl [Metoprolol 25 mg PO QDAY #30 tablet 04/13/21 Unknown Rx SUCCINATE ER TAB] NIFEdipine XL [Procardia Xl] 60 mg PO Q12HR #60 tablet 04/13/21 Unknown Rx hydrALAZINE [Apresoline TAB] 50 mg PO Q8HR #180 tablet 04/13/21 Unknown Rx Active Medications: Generic Name Dose Route Start Last Admin Trade Name Freq PRN Reason Stop Dose Admin Acetaminophen 650 mg 05/04/21 12:34 05/11/21 11:24 Acetaminophen 325 Mg Tab PO 650 mg Q4H PRN Administration Pain MILD(1-3)/Fever >100.5/MARIA Acetaminophen 650 mg 05/07/21 16:00 05/11/21 16:25 Acetaminophen 650 Mg Rect Supp IA 650 mg Q4H PRN Administration Pain, Mild (1-3) Aspirin 81 mg 05/06/21 14:00 05/17/21 09:34 Aspirin 81 Mg Tab Chew PO 81 mg QDAY RISHI Administration Atorvastatin Calcium 40 mg 05/09/21 22:00 05/17/21 22:16 Atorvastatin 40 Mg Tab FEEDTUBE 40 mg QHS RISHI Administration Chlordiazepoxide HCl 75 mg 05/11/21 15:00 05/18/21 06:16 Chlordiazepoxide 25 Mg Cap PO 75 mg Q8H RISHI Administration Dextrose 0 ml 05/09/21 10:49 05/14/21 06:55 Dextrose 10% *Hypoglycemia IV 250 ml PRN PRN Administration Hypoglycemia Famotidine 10 mg 05/17/21 10:00 05/17/21 22:17 Famotidine 10 Mg Tab FEEDTUBE 10 mg BID RISHI Administration Fentanyl 50 mcg 05/16/21 09:56 Fentanyl 100 Mcg/2 Ml Inj IV Q10MIN PRN ANALGESIA Haloperidol Lactate 5 mg 05/09/21 18:32 05/15/21 20:18 Haloperidol Lactate 5 Mg/1 Ml Inj IV 5 mg Q6H PRN Administration Agitation Heparin Sodium (Porcine) 3,000 unit 05/11/21 14:14 Heparin 10,000 Units/10 Ml Vial IV Q6H PRN Anti-Xa Assay < 0.1 units/ml Hydralazine HCl 50 mg 05/04/21 14:00 05/18/21 06:15 Hydralazine 25 Mg Tab PO Not Given Q8HR [facility] Hydrophilic Ointment 1 applic 05/05/21 15:21 Lip Therapy Vaseline TP Q2HR PRN Dry Lips Heparin Sodium/Sodium Chloride 25,000 unit in 500 mls @ 24 mls/hr 05/11/21 15:00 05/18/21 06:17 Heparin/ 0.45% Nacl-25,000 Unit/500 Ml IV 1,550 units/hr TITR RISHI 31 mls/hr Titration Protocol 1,200 UNITS/HR Fentanyl Citrate 2,000 mcg in 100 mls @ 4.082 mls/hr 05/16/21 10:00 05/17/21 15:00 Fentanyl Drip Premix IV 1 mcg/kg/hr TITR RISHI 4.082 mls/hr Administration Protocol 1 MCG/KG/HR Insulin Human Lispro 0 unit 05/10/21 09:40 05/12/21 16:49 Insulin Lispro 100 Unit/Ml SUB-Q 2 unit Q6HR PRN Administration Hyperglycemia Protocol Labetalol HCl 10 mg 05/15/21 10:24 Labetalol 20 Mg/4 Ml Inj IV Q4H PRN sbp> 160. Metoprolol Tartrate 50 mg 05/10/21 14:00 05/18/21 07:45 Metoprolol Tartrate 50 Mg Tab FEEDTUBE Not Given TID [facility] Multi-Ingred Cream/Lotion/Oil/Oint 1 applic 05/05/21 15:21 Mineral Oil/Petrolatum, White Ophth Oint 3.5 Gm OU Q4HR PRN Dry Eye(s) Ondansetron HCl 4 mg 05/04/21 12:34 05/04/21 21:51 Ondansetron 4 Mg/2 Ml Inj IV 4 mg Q8H PRN Administration Nausea And Vomiting Quetiapine Fumarate 200 mg 05/09/21 22:00 05/17/21 22:17 Quetiapine 200 Mg Tab PO 200 mg BID RISHI Administration Senna/Docusate Sodium 1 tab 05/05/21 22:00 05/17/21 22:17 Sennosides/Docusate Sodium 8.6/50 Mg Tab FEEDTUBE 1 tab BID RISHI Administration Sodium Chloride 10 ml 05/04/21 22:00 05/17/21 22:15 Sodium Chloride 0.9% 10 Ml Flush Syringe IV Not Given BID RISHI Sodium Chloride 10 ml 05/04/21 12:34 05/06/21 13:59 Sodium Chloride 0.9% 10 Ml Flush Syringe IV 10 ml PRN PRN Administration LINE FLUSH Sodium Chloride 10 ml 05/09/21 09:46 Sodium Chloride 0.9% 50 Ml Ivpb IV PRN PRN FLUSH
[2021-05-18] MEDS: ASPIRIN 81 MG TAB CHEW PO SCH (10:34)
[2021-05-18] MEDS: QUEtiapine 200 MG TAB PO SCH ×2 (10:35→21:32)
[2021-05-18] MEDS: FAMOTIDINE 10 MG TAB FEEDTUBE SCH ×2 (10:35→21:32)
[2021-05-18] MEDS: SENNOSIDES/DOCUSATE SODIUM 8.6/50 MG TAB FEEDTUBE SCH ×2 (10:35→21:32)
--- NOTE | 2021-05-18 10:44 | Progress Note ---
Assessment and Plan Acute hypoxic resp failure on MVS COVID positive NSTEMI Acute kidney injury Cardiomyopathy EF 35-40% History of hepatitis C Elevated D-dimer. Low probability for PE seen on VQ scan Tobacco abuse Polysubstance abusepatient with positive methamphetamines and has a history of cocaine use Anemia - hold tube feeds - get ABG - extubate if acceptable - continue to use CIWA protocol drugs for sedation - continue care as below otherwise; - continue to follow electrolytes / I's & O's re: Azotemia - continue IV Heparin re: VTE (Transition to oral agent soon) - Daily SAT and SBT assessment as tolerated - continue to wean supplemental oxygen for target O2 sat's > 90% acutely - VAP bundle addressed - continue lung protective strategies - continue bronchodilators with pulmonary hygiene per RT - wean per pulmonary driven protocols otherwise - avoid nephrotoxins, renally dose all medications - AB's per ID recommendations - continue accuchecks with glycemic control per SSI (While critically ill target blood glucose of 140-180 mg/dL; avoid hypoglycemia) - sedation prn for target RASS 0 to -1 - continue to avoid benzodiazepine's, reduce the possibility of delirium - prn analgesia per CPOT score - Maintenance of sleep-wake cycle, avoid delirium - continue enteral nutritional support at goal rate as tolerated - G.I. & VTE prophylaxis - PT/OT/ROM exercises - continue mobility protocols for pressure ulcer prophylaxis - Monitor hemodynamics closely - continue other care per attending / other consultants - discharge planning ongoing concurrently COVID SPECIFIC INTERVENTIONS - Appears to have incidental COVID infection- Remdesivir not administered secondary to renal failure - continue systemic steroids for severe COVID-19 infection empirically (Dexamethasone) - follow repeat COVID tests results - zinc and vitamin C supplementation - Monitor inflammatory markers per facility protocol - ferritin, Ddimer, CRP - therapeutic anticoagulation per system Protocol based on d-dimer and clinical considerations (on therapeutic heparin for NSTEMI) - Continue contact and airborne isolation .... Re-evaluate in am & prn CONDITION: CRITICAL PROGNOSIS: GUARDED CODE STATUS: FULL CODE The high probability of a clinically significant, sudden or life-threatening deterioration of the [respiratory, cardiovascular & neurologic] system(s) required my full and direct attention, intervention and personal management. The aggregate critical care time was [35] minutes without overlap. Time includes spent on; [x] Data Review and interpretation [x] Patient assessment and monitoring of vital signs [x] Documentation [x] Medication orders and management Subjective Date of service: 05/18/21 Principal diagnosis: AHRF; COVID-19 infection; NSTEMI; YE; HFrEF (35-40%); Po lysubstance abuse Interval history: Patient is seen today for: Acute hypoxemic Resp failure; COVID-19 infection; NSTEMI; YE; HFrEF (35-40%); Polysubstance abuse; Anemia Seen and examined at bedside; 24hour events reviewed; nursing and respiratory care staff consulted; no adverse overnight events reported to me; resting in bed; remains on MVS; placed on SBT and tolerating well so far; still with withdrawal S&S but responds well to CIWA protocol Objective Vital Signs - 12hr 05/17/21 05/17/21 05/18/21 23:00 23:54 00:00 Temperature 97.6 F Pulse Rate 63 62 62 Pulse Rate [ 62 From Monitor] Respiratory 9 L 14 Rate Blood Pressure 118/82 118/79 122/82 O2 Sat by Pulse 100 100 100 Oximetry 05/18/21 05/18/21 05/18/21 01:00 02:00 03:00 Temperature Pulse Rate 60 60 60 Pulse Rate [ From Monitor] Respiratory 15 17 17 Rate Blood Pressure 122/82 119/78 118/79 O2 Sat by Pulse 100 100 100 Oximetry 05/18/21 05/18/21 05/18/21 04:00 04:38 05:00 Temperature 98.2 F Pulse Rate 58 L 61 58 L Pulse Rate [ 58 L From Monitor] Respiratory 12 14 Rate Blood Pressure 111/76 111/76 112/73 O2 Sat by Pulse 100 100 100 Oximetry 05/18/21 05/18/21 05/18/21 06:00 06:59 07:00 Temperature Pulse Rate 57 L 58 L 57 L Pulse Rate [ From Monitor] Respiratory 16 10 L Rate Blood Pressure 112/73 118/77 118/77 O2 Sat by Pulse 100 100 99 Oximetry 05/18/21 05/18/21 07:13 08:00 Temperature 98.7 F Pulse Rate 59 L Pulse Rate [ 58 L From Monitor] Respiratory 13 Rate Blood Pressure 118/77 O2 Sat by Pulse 100 Oximetry Constitutional: no acute distress, other (mildly increased respiratory effort at rest on MVS) Eyes: non-icteric ENT: oropharynx moist, other (ETT 24 cm ELIZABET) Neck: supple, no lymphadenopathy, no JVD Effort: normal Ascultation: Bilateral: diminished breath sounds, rhonchi Percussion: Bilateral: not dull Cardiovascular: regular rate and rhythm, other (S1,S2) Gastrointestinal: normoactive bowel sounds, soft, non-tender, non-distended Integumentary: normal Extremities: no cyanosis, no edema, pulses normal, no ischemia or petechiae Neurologic: non-focal exam (grossly), pupils equal and round, CN II-XII normal, motor strength normal and Psychiatric: other (sedated) CBC and BMP: 05/18/21 04:15 05/18/21 04:15 ABG, PT/INR, D-dimer: ABG ABG pH 7.422 pH Units (7.350-7.450) 05/17/21 15:35 ABG pCO2 43.2 mm Hg 05/17/21 15:35 ABG pO2 103.7 mm Hg (80.0-90.0) H 05/17/21 15:35 ABG O2 Saturation 97.8 % (95.0-99.0) 05/17/21 15:35 PT/INR, D-dimer PT 15.6 Sec. (12.2-14.9) H 05/11/21 14:43 INR 1.12 (0.87-1.13) 05/11/21 14:43 D-Dimer 2730.61 ng/mlDDU (0-234) H 05/12/21 07:19 Abnormal lab findings: Abnormal Labs 05/04/21 05/04/21 05/04/21 07:25 07:25 07:25 WBC 12.9 H RBC 3.04 L Hgb 9.5 L Hct 28.4 L MCV MCHC RDW 15.4 H Lymph % (Auto) 11.4 L [place] % (Auto) 10.1 H Lymph # (Auto) [place] # (Auto) 1.3 H Seg Neutrophils % 78.0 H Seg Neuts % (Manual) Lymphocytes % (Manual) Monocytes % (Manual) Seg Neutrophils # 10.0 H Seg Neutrophils # Man Lymphocytes # (Manual) Monocytes # (Manual) PT 15.1 H D-Dimer Heparin Anti-Xa Level ABG pH ABG pO2 ABG HCO3 ABG O2 Saturation ABG Base Excess ABG Hemoglobin Sodium 135 L Potassium Chloride Carbon Dioxide BUN 65 H Creatinine 3.4 H Glucose 118 H POC Glucose Calcium Ferritin Total Bilirubin 1.50 H AST 519 H ALT 475 H Lactate Dehydrogenase Total Creatine Kinase Troponin T 1.300 H* C-Reactive Protein Albumin Urine WBC (Auto) Urine Creatinine Urine Total Protein Complement C3 Coronavirus (PCR) Hepatitis C Antibody 05/04/21 05/04/21 05/04/21 07:25 08:42 08:42 WBC RBC Hgb Hct MCV MCHC RDW Lymph % (Auto) [place] % (Auto) Lymph # (Auto) [place] # (Auto) Seg Neutrophils % Seg Neuts % (Manual) Lymphocytes % (Manual) Monocytes % (Manual) Seg Neutrophils # Seg Neutrophils # Man Lymphocytes # (Manual) Monocytes # (Manual) PT D-Dimer 579.49 H Heparin Anti-Xa Level ABG pH ABG pO2 ABG HCO3 ABG O2 Saturation ABG Base Excess ABG Hemoglobin Sodium Potassium Chloride Carbon Dioxide BUN Creatinine Glucose POC Glucose Calcium Ferritin Total Bilirubin AST ALT Lactate Dehydrogenase Total Creatine Kinase 406 H Troponin T 1.230 H* C-Reactive Protein Albumin Urine WBC (Auto) Urine Creatinine Urine Total Protein Complement C3 Coronavirus (PCR) Hepatitis C Antibody 05/04/21 05/04/21 05/04/21 10:13 13:34 18:14 WBC RBC Hgb 8.8 L Hct 26.6 L MCV MCHC RDW Lymph % (Auto) [place] % (Auto) Lymph # (Auto) [place] # (Auto) Seg Neutrophils % Seg Neuts % (Manual) Lymphocytes % (Manual) Monocytes % (Manual) Seg Neutrophils # Seg Neutrophils # Man Lymphocytes # (Manual) Monocytes # (Manual) PT D-Dimer Heparin Anti-Xa Level < 0.10 L ABG pH ABG pO2 ABG HCO3 ABG O2 Saturation ABG Base Excess ABG Hemoglobin Sodium Potassium Chloride Carbon Dioxide BUN Creatinine Glucose POC Glucose Calcium Ferritin Total Bilirubin AST ALT Lactate Dehydrogenase Total Creatine Kinase Troponin T 1.400 H* C-Reactive Protein Albumin Urine WBC (Auto) Urine Creatinine Urine Total Protein Complement C3 Coronavirus (PCR) Hepatitis C Antibody 05/05/21 05/05/21 05/05/21 03:40 03:40 03:40 WBC RBC Hgb Hct MCV MCHC RDW Lymph % (Auto) [place] % (Auto) Lymph # (Auto) [place] # (Auto) Seg Neutrophils % Seg Neuts % (Manual) Lymphocytes % (Manual) Monocytes % (Manual) Seg Neutrophils # Seg Neutrophils # Man Lymphocytes # (Manual) Monocytes # (Manual) PT D-Dimer Heparin Anti-Xa Level 0.11 L ABG pH ABG pO2 ABG HCO3 ABG O2 Saturation ABG Base Excess ABG Hemoglobin Sodium Potassium 3.3 L Chloride Carbon Dioxide BUN 59 H Creatinine 2.6 H Glucose 139 H POC Glucose Calcium Ferritin Total Bilirubin AST ALT Lactate Dehydrogenase Total Creatine Kinase Troponin T C-Reactive Protein Albumin Urine WBC (Auto) Urine Creatinine Urine Total Protein Complement C3 Coronavirus (PCR) Hepatitis C Antibody Reactive A 05/05/21 05/05/21 05/05/21 03:40 08:30 09:57 WBC RBC Hgb Hct MCV MCHC RDW Lymph % (Auto) [place] % (Auto) Lymph # (Auto) [place] # (Auto) Seg Neutrophils % Seg Neuts % (Manual) Lymphocytes % (Manual) Monocytes % (Manual) Seg Neutrophils # Seg Neutrophils # Man Lymphocytes # (Manual) Monocytes # (Manual) PT D-Dimer Heparin Anti-Xa Level ABG pH ABG pO2 ABG HCO3 ABG O2 Saturation ABG Base Excess ABG Hemoglobin Sodium Potassium Chloride Carbon Dioxide BUN Creatinine Glucose POC Glucose Calcium Ferritin Total Bilirubin AST ALT Lactate Dehydrogenase Total Creatine Kinase Troponin T C-Reactive Protein Albumin Urine WBC (Auto) Urine Creatinine 100.8 H Urine Total Protein Complement C3 72 L Coronavirus (PCR) Positive A Hepatitis C Antibody 05/05/21 05/05/21 05/05/21 11:28 17:00 19:51 WBC RBC Hgb Hct MCV MCHC RDW Lymph % (Auto) [place] % (Auto) Lymph # (Auto) [place] # (Auto) Seg Neutrophils % Seg Neuts % (Manual) Lymphocytes % (Manual) Monocytes % (Manual) Seg Neutrophils # Seg Neutrophils # Man Lymphocytes # (Manual) Monocytes # (Manual) PT D-Dimer Heparin Anti-Xa Level 0.10 L 0.22 L ABG pH 7.304 L ABG pO2 140.8 H ABG HCO3 ABG O2 Saturation ABG Base Excess -2.1 L ABG Hemoglobin 10.2 L Sodium Potassium Chloride Carbon Dioxide BUN Creatinine Glucose POC Glucose Calcium Ferritin Total Bilirubin AST ALT Lactate Dehydrogenase Total Creatine Kinase Troponin T C-Reactive Protein Albumin Urine WBC (Auto) Urine Creatinine Urine Total Protein Complement C3 Coronavirus (PCR) Hepatitis C Antibody 05/06/21 05/06/21 05/06/21 03:47 06:15 17:53 WBC RBC Hgb 9.0 L Hct 27.8 L MCV MCHC RDW Lymph % (Auto) [place] % (Auto) Lymph # (Auto) [place] # (Auto) Seg Neutrophils % Seg Neuts % (Manual) Lymphocytes % (Manual) Monocytes % (Manual) Seg Neutrophils # Seg Neutrophils # Man Lymphocytes # (Manual) Monocytes # (Manual) PT D-Dimer Heparin Anti-Xa Level 0.10 L ABG pH ABG pO2 143.5 H ABG HCO3 ABG O2 Saturation ABG Base Excess -2.4 L ABG Hemoglobin 6.9 L Sodium Potassium Chloride Carbon Dioxide BUN Creatinine Glucose POC Glucose Calcium Ferritin Total Bilirubin AST ALT Lactate Dehydrogenase Total Creatine Kinase Troponin T C-Reactive Protein Albumin Urine WBC (Auto) Urine Creatinine Urine Total Protein Complement C3 Coronavirus (PCR) Hepatitis C Antibody 05/07/21 05/07/21 05/07/21 00:07 03:22 03:45 WBC RBC Hgb Hct MCV MCHC RDW Lymph % (Auto) [place] % (Auto) Lymph # (Auto) [place] # (Auto) Seg Neutrophils % Seg Neuts % (Manual) Lymphocytes % (Manual) Monocytes % (Manual) Seg Neutrophils # Seg Neutrophils # Man Lymphocytes # (Manual) Monocytes # (Manual) PT D-Dimer Heparin Anti-Xa Level < 0.10 L ABG pH ABG pO2 104.3 H ABG HCO3 ABG O2 Saturation ABG Base Excess -2.6 L ABG Hemoglobin 9.1 L Sodium Potassium Chloride 107.1 H Carbon Dioxide 20 L BUN 56 H Creatinine 2.9 H Glucose POC Glucose Calcium Ferritin Total Bilirubin AST ALT Lactate Dehydrogenase Total Creatine Kinase Troponin T C-Reactive Protein Albumin Urine WBC (Auto) Urine Creatinine Urine Total Protein Complement C3 Coronavirus (PCR) Hepatitis C Antibody 05/07/21 05/07/21 05/07/21 07:44 16:28 22:41 WBC RBC Hgb Hct MCV MCHC RDW Lymph % (Auto) [place] % (Auto) Lymph # (Auto) [place] # (Auto) Seg Neutrophils % Seg Neuts % (Manual) Lymphocytes % (Manual) Monocytes % (Manual) Seg Neutrophils # Seg Neutrophils # Man Lymphocytes # (Manual) Monocytes # (Manual) PT D-Dimer Heparin Anti-Xa Level < 0.10 L 0.10 L < 0.10 L ABG pH ABG pO2 ABG HCO3 ABG O2 Saturation ABG Base Excess ABG Hemoglobin Sodium Potassium Chloride Carbon Dioxide BUN Creatinine Glucose POC Glucose Calcium Ferritin Total Bilirubin AST ALT Lactate Dehydrogenase Total Creatine Kinase Troponin T C-Reactive Protein Albumin Urine WBC (Auto) Urine Creatinine Urine Total Protein Complement C3 Coronavirus (PCR) Hepatitis C Antibody 05/08/21 05/08/21 05/08/21 03:25 04:34 07:30 WBC 12.4 H RBC 3.02 L Hgb 9.5 L Hct 29.2 L MCV 97 H MCHC RDW 16.7 H Lymph % (Auto) 8.1 L [place] % (Auto) 11.0 H Lymph # (Auto) 1.0 L [place] # (Auto) 1.4 H Seg Neutrophils % 80.1 H Seg Neuts % (Manual) Lymphocytes % (Manual) Monocytes % (Manual) Seg Neutrophils # 9.9 H Seg Neutrophils # Man Lymphocytes # (Manual) Monocytes # (Manual) PT D-Dimer Heparin Anti-Xa Level ABG pH ABG pO2 139.0 H ABG HCO3 ABG O2 Saturation ABG Base Excess ABG Hemoglobin 8.8 L Sodium Potassium Chloride 110.5 H Carbon Dioxide BUN 59 H Creatinine 2.8 H Glucose 103 H POC Glucose Calcium Ferritin Total Bilirubin AST ALT 327 H Lactate Dehydrogenase Total Creatine Kinase Troponin T C-Reactive Protein Albumin 3.1 L Urine WBC (Auto) Urine Creatinine Urine Total Protein Complement C3 Coronavirus (PCR) Hepatitis C Antibody 05/09/21 05/09/21 05/09/21 04:10 04:20 04:20 WBC 11.7 H RBC 2.79 L Hgb 8.7 L Hct 26.5 L MCV 95 H MCHC RDW 16.2 H Lymph % (Auto) [place] % (Auto) Lymph # (Auto) [place] # (Auto) Seg Neutrophils % Seg Neuts % (Manual) Lymphocytes % (Manual) Monocytes % (Manual) Seg Neutrophils # Seg Neutrophils # Man Lymphocytes # (Manual) Monocytes # (Manual) PT D-Dimer Heparin Anti-Xa Level ABG pH ABG pO2 161.6 H ABG HCO3 ABG O2 Saturation ABG Base Excess ABG Hemoglobin 8.3 L Sodium 151 H Potassium Chloride 114.5 H Carbon Dioxide 21 L BUN 57 H Creatinine 2.4 H Glucose POC Glucose Calcium Ferritin Total Bilirubin AST ALT 210 H Lactate Dehydrogenase Total Creatine Kinase Troponin T C-Reactive Protein Albumin 2.9 L Urine WBC (Auto) Urine Creatinine Urine Total Protein Complement C3 Coronavirus (PCR) Hepatitis C Antibody 05/09/21 05/09/21 05/09/21 09:48 09:48 13:22 WBC 11.6 H RBC 3.00 L Hgb 9.0 L Hct 28.4 L MCV MCHC RDW 15.9 H Lymph % (Auto) 5.9 L [place] % (Auto) 8.9 H Lymph # (Auto) 0.7 L [place] # (Auto) 1.0 H Seg Neutrophils % 84.3 H Seg Neuts % (Manual) Lymphocytes % (Manual) Monocytes % (Manual) Seg Neutrophils # 9.8 H Seg Neutrophils # Man Lymphocytes # (Manual) Monocytes # (Manual) PT D-Dimer Heparin Anti-Xa Level ABG pH ABG pO2 ABG HCO3 ABG O2 Saturation ABG Base Excess ABG Hemoglobin Sodium Potassium Chloride Carbon Dioxide BUN Creatinine Glucose POC Glucose Calcium Ferritin Total Bilirubin AST ALT Lactate Dehydrogenase Total Creatine Kinase Troponin T C-Reactive Protein 8.70 H Albumin Urine WBC (Auto) 25.0 H Urine Creatinine Urine Total Protein Complement C3 Coronavirus (PCR) Hepatitis C Antibody 05/09/21 05/09/21 05/10/21 15:20 18:16 04:57 WBC RBC 2.87 L Hgb 8.8 L Hct 27.0 L MCV MCHC RDW 15.9 H Lymph % (Auto) [place] % (Auto) Lymph # (Auto) [place] # (Auto) Seg Neutrophils % Seg Neuts % (Manual) Lymphocytes % (Manual) Monocytes % (Manual) Seg Neutrophils # Seg Neutrophils # Man Lymphocytes # (Manual) Monocytes # (Manual) PT D-Dimer Heparin Anti-Xa Level ABG pH ABG pO2 102.0 H ABG HCO3 ABG O2 Saturation ABG Base Excess -2.8 L ABG Hemoglobin 9.0 L Sodium Potassium Chloride Carbon Dioxide BUN Creatinine Glucose POC Glucose 130 H Calcium Ferritin Total Bilirubin AST ALT Lactate Dehydrogenase Total Creatine Kinase Troponin T C-Reactive Protein Albumin Urine WBC (Auto) Urine Creatinine Urine Total Protein Complement C3 Coronavirus (PCR) Hepatitis C Antibody 05/10/21 05/10/21 05/10/21 04:57 04:57 04:57 WBC RBC Hgb Hct MCV MCHC RDW Lymph % (Auto) [place] % (Auto) Lymph # (Auto) [place] # (Auto) Seg Neutrophils % Seg Neuts % (Manual) Lymphocytes % (Manual) Monocytes % (Manual) Seg Neutrophils # Seg Neutrophils # Man Lymphocytes # (Manual) Monocytes # (Manual) PT D-Dimer 1546.78 H Heparin Anti-Xa Level ABG pH ABG pO2 ABG HCO3 ABG O2 Saturation ABG Base Excess ABG Hemoglobin Sodium 148 H Potassium Chloride 114.9 H Carbon Dioxide 21 L BUN 57 H Creatinine 2.3 H Glucose 157 H POC Glucose Calcium Ferritin 888.2 H Total Bilirubin AST ALT Lactate Dehydrogenase 289 H Total Creatine Kinase Troponin T C-Reactive Protein 6.80 H Albumin Urine WBC (Auto) Urine Creatinine Urine Total Protein Complement C3 Coronavirus (PCR) Hepatitis C Antibody 05/10/21 05/10/21 05/10/21 05:09 08:04 11:03 WBC RBC Hgb Hct MCV MCHC RDW Lymph % (Auto) [place] % (Auto) Lymph # (Auto) [place] # (Auto) Seg Neutrophils % Seg Neuts % (Manual) Lymphocytes % (Manual) Monocytes % (Manual) Seg Neutrophils # Seg Neutrophils # Man Lymphocytes # (Manual) Monocytes # (Manual) PT D-Dimer Heparin Anti-Xa Level ABG pH 7.473 H ABG pO2 114.6 H ABG HCO3 ABG O2 Saturation ABG Base Excess ABG Hemoglobin 9.5 L Sodium Potassium Chloride Carbon Dioxide BUN Creatinine Glucose POC Glucose 152 H Calcium Ferritin Total Bilirubin AST ALT Lactate Dehydrogenase Total Creatine Kinase Troponin T C-Reactive Protein Albumin Urine WBC (Auto) Urine Creatinine 100.8 H Urine Total Protein 42 H Complement C3 Coronavirus (PCR) Hepatitis C Antibody 05/10/21 05/10/21 05/10/21 13:07 18:01 23:31 WBC RBC Hgb Hct MCV MCHC RDW Lymph % (Auto) [place] % (Auto) Lymph # (Auto) [place] # (Auto) Seg Neutrophils % Seg Neuts % (Manual) Lymphocytes % (Manual) Monocytes % (Manual) Seg Neutrophils # Seg Neutrophils # Man Lymphocytes # (Manual) Monocytes # (Manual) PT D-Dimer Heparin Anti-Xa Level ABG pH ABG pO2 ABG HCO3 ABG O2 Saturation ABG Base Excess ABG Hemoglobin Sodium Potassium Chloride Carbon Dioxide BUN Creatinine Glucose POC Glucose 150 H 189 H 142 H Calcium Ferritin Total Bilirubin AST ALT Lactate Dehydrogenase Total Creatine Kinase Troponin T C-Reactive Protein Albumin Urine WBC (Auto) Urine Creatinine Urine Total Protein Complement C3 Coronavirus (PCR) Hepatitis C Antibody 05/10/21 05/11/21 05/11/21 Unknown 05:25 06:53 WBC RBC Hgb Hct MCV MCHC RDW Lymph % (Auto) [place] % (Auto) Lymph # (Auto) [place] # (Auto) Seg Neutrophils % Seg Neuts % (Manual) Lymphocytes % (Manual) Monocytes % (Manual) Seg Neutrophils # Seg Neutrophils # Man Lymphocytes # (Manual) Monocytes # (Manual) PT D-Dimer Heparin Anti-Xa Level ABG pH ABG pO2 126.6 H ABG HCO3 ABG O2 Saturation ABG Base Excess ABG Hemoglobin 9.2 L Sodium 150 H Potassium Chloride 116.6 H Carbon Dioxide 21 L BUN 62 H Creatinine 2.5 H Glucose 142 H POC Glucose 163 H Calcium Ferritin Total Bilirubin AST ALT Lactate Dehydrogenase Total Creatine Kinase Troponin T C-Reactive Protein Albumin Urine WBC (Auto) Urine Creatinine Urine Total Protein Complement C3 Coronavirus (PCR) Hepatitis C Antibody 05/11/21 05/11/21 05/11/21 06:53 11:06 13:51 WBC RBC 3.07 L Hgb 9.3 L Hct 29.0 L MCV 95 H MCHC RDW 16.1 H Lymph % (Auto) [place] % (Auto) Lymph # (Auto) [place] # (Auto) Seg Neutrophils % Seg Neuts % (Manual) Lymphocytes % (Manual) Monocytes % (Manual) Seg Neutrophils # Seg Neutrophils # Man Lymphocytes # (Manual) Monocytes # (Manual) PT D-Dimer Heparin Anti-Xa Level ABG pH ABG pO2 74.9 L ABG HCO3 ABG O2 Saturation ABG Base Excess -3.3 L ABG Hemoglobin 10.8 L Sodium Potassium Chloride Carbon Dioxide BUN Creatinine Glucose POC Glucose 145 H Calcium Ferritin Total Bilirubin AST ALT Lactate Dehydrogenase Total Creatine Kinase Troponin T C-Reactive Protein Albumin Urine WBC (Auto) Urine Creatinine Urine Total Protein Complement C3 Coronavirus (PCR) Hepatitis C Antibody 05/11/21 05/11/21 05/11/21 14:43 14:43 15:47 WBC RBC Hgb 9.2 L Hct 29.7 L MCV MCHC RDW Lymph % (Auto) [place] % (Auto) Lymph # (Auto) [place] # (Auto) Seg Neutrophils % Seg Neuts % (Manual) Lymphocytes % (Manual) Monocytes % (Manual) Seg Neutrophils # Seg Neutrophils # Man Lymphocytes # (Manual) Monocytes # (Manual) PT 15.6 H D-Dimer Heparin Anti-Xa Level ABG pH ABG pO2 ABG HCO3 ABG O2 Saturation ABG Base Excess ABG Hemoglobin Sodium Potassium Chloride Carbon Dioxide BUN Creatinine Glucose POC Glucose 137 H Calcium Ferritin Total Bilirubin AST ALT Lactate Dehydrogenase Total Creatine Kinase Troponin T C-Reactive Protein Albumin Urine WBC (Auto) Urine Creatinine Urine Total Protein Complement C3 Coronavirus (PCR) Hepatitis C Antibody 05/12/21 05/12/21 05/12/21 00:04 05:07 07:19 WBC 11.9 H RBC 3.00 L Hgb 9.1 L Hct 28.9 L MCV 96 H MCHC RDW 16.7 H Lymph % (Auto) 11.5 L [place] % (Auto) 8.2 H Lymph # (Auto) [place] # (Auto) 1.0 H Seg Neutrophils % 80.0 H Seg Neuts % (Manual) Lymphocytes % (Manual) Monocytes % (Manual) Seg Neutrophils # 9.6 H Seg Neutrophils # Man Lymphocytes # (Manual) Monocytes # (Manual) PT D-Dimer Heparin Anti-Xa Level ABG pH ABG pO2 ABG HCO3 ABG O2 Saturation ABG Base Excess ABG Hemoglobin Sodium Potassium Chloride Carbon Dioxide BUN Creatinine Glucose POC Glucose 121 H 117 H Calcium Ferritin Total Bilirubin AST ALT Lactate Dehydrogenase Total Creatine Kinase Troponin T C-Reactive Protein Albumin Urine WBC (Auto) Urine Creatinine Urine Total Protein Complement C3 Coronavirus (PCR) Hepatitis C Antibody 05/12/21 05/12/21 05/12/21 07:19 07:19 07:19 WBC RBC Hgb Hct MCV MCHC RDW Lymph % (Auto) [place] % (Auto) Lymph # (Auto) [place] # (Auto) Seg Neutrophils % Seg Neuts % (Manual) Lymphocytes % (Manual) Monocytes % (Manual) Seg Neutrophils # Seg Neutrophils # Man Lymphocytes # (Manual) Monocytes # (Manual) PT D-Dimer 2730.61 H Heparin Anti-Xa Level ABG pH ABG pO2 ABG HCO3 ABG O2 Saturation ABG Base Excess ABG Hemoglobin Sodium 146 H Potassium 5.1 H Chloride 112.4 H Carbon Dioxide 21 L BUN 61 H Creatinine 2.2 H Glucose 136 H POC Glucose Calcium 8.1 L Ferritin 640.2 H Total Bilirubin AST ALT Lactate Dehydrogenase 314 H Total Creatine Kinase Troponin T C-Reactive Protein 1.60 H Albumin Urine WBC (Auto) Urine Creatinine Urine Total Protein Complement C3 Coronavirus (PCR) Hepatitis C Antibody 05/12/21 05/12/21 05/12/21 11:10 16:10 16:38 WBC RBC Hgb Hct MCV MCHC RDW Lymph % (Auto) [place] % (Auto) Lymph # (Auto) [place] # (Auto) Seg Neutrophils % Seg Neuts % (Manual) Lymphocytes % (Manual) Monocytes % (Manual) Seg Neutrophils # Seg Neutrophils # Man Lymphocytes # (Manual) Monocytes # (Manual) PT D-Dimer Heparin Anti-Xa Level 0.20 L ABG pH ABG pO2 ABG HCO3 ABG O2 Saturation ABG Base Excess ABG Hemoglobin Sodium Potassium Chloride Carbon Dioxide BUN Creatinine Glucose POC Glucose 131 H 157 H Calcium Ferritin Total Bilirubin AST ALT Lactate Dehydrogenase Total Creatine Kinase Troponin T C-Reactive Protein Albumin Urine WBC (Auto) Urine Creatinine Urine Total Protein Complement C3 Coronavirus (PCR) Hepatitis C Antibody 05/12/21 05/13/21 05/13/21 23:30 00:12 04:20 WBC RBC Hgb Hct MCV MCHC RDW Lymph % (Auto) [place] % (Auto) Lymph # (Auto) [place] # (Auto) Seg Neutrophils % Seg Neuts % (Manual) Lymphocytes % (Manual) Monocytes % (Manual) Seg Neutrophils # Seg Neutrophils # Man Lymphocytes # (Manual) Monocytes # (Manual) PT D-Dimer Heparin Anti-Xa Level 0.13 L ABG pH ABG pO2 ABG HCO3 ABG O2 Saturation ABG Base Excess ABG Hemoglobin Sodium Potassium Chloride 111.2 H Carbon Dioxide BUN 53 H Creatinine 1.9 H Glucose 121 H POC Glucose 115 H Calcium 8.3 L Ferritin Total Bilirubin AST ALT Lactate Dehydrogenase Total Creatine Kinase Troponin T C-Reactive Protein Albumin Urine WBC (Auto) Urine Creatinine Urine Total Protein Complement C3 Coronavirus (PCR) Hepatitis C Antibody 05/13/21 05/13/21 05/13/21 04:20 11:15 11:29 WBC 13.1 H RBC 2.86 L Hgb 8.5 L Hct 26.9 L MCV MCHC RDW 15.7 H Lymph % (Auto) [place] % (Auto) Lymph # (Auto) [place] # (Auto) Seg Neutrophils % Seg Neuts % (Manual) Lymphocytes % (Manual) Monocytes % (Manual) Seg Neutrophils # Seg Neutrophils # Man Lymphocytes # (Manual) Monocytes # (Manual) PT D-Dimer Heparin Anti-Xa Level ABG pH 7.456 H ABG pO2 106.0 H ABG HCO3 ABG O2 Saturation ABG Base Excess ABG Hemoglobin 7.1 L Sodium Potassium Chloride Carbon Dioxide BUN Creatinine Glucose POC Glucose 121 H Calcium Ferritin Total Bilirubin AST ALT Lactate Dehydrogenase Total Creatine Kinase Troponin T C-Reactive Protein Albumin Urine WBC (Auto) Urine Creatinine Urine Total Protein Complement C3 Coronavirus (PCR) Hepatitis C Antibody 05/13/21 05/13/21 05/14/21 16:38 23:43 04:26 WBC 14.2 H RBC 3.11 L Hgb 9.4 L Hct 29.3 L MCV MCHC RDW 15.4 H Lymph % (Auto) [place] % (Auto) Lymph # (Auto) [place] # (Auto) Seg Neutrophils % Seg Neuts % (Manual) Lymphocytes % (Manual) Monocytes % (Manual) Seg Neutrophils # Seg Neutrophils # Man Lymphocytes # (Manual) Monocytes # (Manual) PT D-Dimer Heparin Anti-Xa Level ABG pH ABG pO2 ABG HCO3 ABG O2 Saturation ABG Base Excess ABG Hemoglobin Sodium Potassium Chloride Carbon Dioxide BUN Creatinine Glucose POC Glucose 119 H 55 L Calcium Ferritin Total Bilirubin AST ALT Lactate Dehydrogenase Total Creatine Kinase Troponin T C-Reactive Protein Albumin Urine WBC (Auto) Urine Creatinine Urine Total Protein Complement C3 Coronavirus (PCR) Hepatitis C Antibody 05/14/21 05/14/21 05/14/21 04:26 05:26 06:51 WBC RBC Hgb Hct MCV MCHC RDW Lymph % (Auto) [place] % (Auto) Lymph # (Auto) [place] # (Auto) Seg Neutrophils % Seg Neuts % (Manual) Lymphocytes % (Manual) Monocytes % (Manual) Seg Neutrophils # Seg Neutrophils # Man Lymphocytes # (Manual) Monocytes # (Manual) PT D-Dimer Heparin Anti-Xa Level ABG pH ABG pO2 ABG HCO3 ABG O2 Saturation ABG Base Excess ABG Hemoglobin Sodium Potassium 3.4 L Chloride 107.6 H Carbon Dioxide BUN 42 H Creatinine 1.9 H Glucose POC Glucose 51 L 62 L Calcium Ferritin Total Bilirubin AST ALT Lactate Dehydrogenase Total Creatine Kinase Troponin T C-Reactive Protein Albumin Urine WBC (Auto) Urine Creatinine Urine Total Protein Complement C3 Coronavirus (PCR) Hepatitis C Antibody 05/14/21 05/14/21 05/14/21 09:58 12:05 12:08 WBC RBC Hgb Hct MCV MCHC RDW Lymph % (Auto) [place] % (Auto) Lymph # (Auto) [place] # (Auto) Seg Neutrophils % Seg Neuts % (Manual) Lymphocytes % (Manual) Monocytes % (Manual) Seg Neutrophils # Seg Neutrophils # Man Lymphocytes # (Manual) Monocytes # (Manual) PT D-Dimer Heparin Anti-Xa Level ABG pH ABG pO2 ABG HCO3 ABG O2 Saturation ABG Base Excess ABG Hemoglobin Sodium Potassium 3.4 L Chloride Carbon Dioxide BUN 36 H Creatinine 1.8 H Glucose 133 H POC Glucose 60 L 127 H Calcium Ferritin Total Bilirubin AST ALT Lactate Dehydrogenase Total Creatine Kinase Troponin T C-Reactive Protein Albumin Urine WBC (Auto) Urine Creatinine Urine Total Protein Complement C3 Coronavirus (PCR) Hepatitis C Antibody 05/14/21 05/14/21 05/15/21 17:20 23:37 05:34 WBC RBC Hgb Hct MCV MCHC RDW Lymph % (Auto) [place] % (Auto) Lymph # (Auto) [place] # (Auto) Seg Neutrophils % Seg Neuts % (Manual) Lymphocytes % (Manual) Monocytes % (Manual) Seg Neutrophils # Seg Neutrophils # Man Lymphocytes # (Manual) Monocytes # (Manual) PT D-Dimer Heparin Anti-Xa Level ABG pH ABG pO2 ABG HCO3 ABG O2 Saturation ABG Base Excess ABG Hemoglobin Sodium Potassium Chloride Carbon Dioxide BUN Creatinine Glucose POC Glucose 144 H 115 H 119 H Calcium Ferritin Total Bilirubin AST ALT Lactate Dehydrogenase Total Creatine Kinase Troponin T C-Reactive Protein Albumin Urine WBC (Auto) Urine Creatinine Urine Total Protein Complement C3 Coronavirus (PCR) Hepatitis C Antibody 05/15/21 05/15/21 05/15/21 07:26 07:26 14:35 WBC 13.8 H RBC 3.32 L Hgb 10.0 L Hct 31.2 L MCV MCHC RDW 16.0 H Lymph % (Auto) [place] % (Auto) Lymph # (Auto) [place] # (Auto) Seg Neutrophils % Seg Neuts % (Manual) Lymphocytes % (Manual) Monocytes % (Manual) Seg Neutrophils # Seg Neutrophils # Man Lymphocytes # (Manual) Monocytes # (Manual) PT D-Dimer Heparin Anti-Xa Level ABG pH ABG pO2 ABG HCO3 ABG O2 Saturation ABG Base Excess ABG Hemoglobin Sodium 149 H D Potassium 3.5 L Chloride 113.2 H Carbon Dioxide BUN 29 H Creatinine 1.8 H Glucose 113 H POC Glucose 143 H Calcium Ferritin Total Bilirubin AST ALT Lactate Dehydrogenase Total Creatine Kinase Troponin T C-Reactive Protein Albumin Urine WBC (Auto) Urine Creatinine Urine Total Protein Complement C3 Coronavirus (PCR) Hepatitis C Antibody 05/16/21 05/16/21 05/16/21 06:12 08:43 10:05 WBC RBC Hgb Hct MCV MCHC RDW Lymph % (Auto) [place] % (Auto) Lymph # (Auto) [place] # (Auto) Seg Neutrophils % Seg Neuts % (Manual) Lymphocytes % (Manual) Monocytes % (Manual) Seg Neutrophils # Seg Neutrophils # Man Lymphocytes # (Manual) Monocytes # (Manual) PT D-Dimer Heparin Anti-Xa Level 0.21 L ABG pH ABG pO2 240.8 H ABG HCO3 ABG O2 Saturation 99.4 H ABG Base Excess -2.6 L ABG Hemoglobin 10.7 L Sodium Potassium Chloride Carbon Dioxide BUN Creatinine Glucose POC Glucose 34 L Calcium Ferritin Total Bilirubin AST ALT Lactate Dehydrogenase Total Creatine Kinase Troponin T C-Reactive Protein Albumin Urine WBC (Auto) Urine Creatinine Urine Total Protein Complement C3 Coronavirus (PCR) Hepatitis C Antibody 05/16/21 05/16/21 05/16/21 10:21 10:21 13:14 WBC 27.6 H RBC Hgb 11.4 L Hct MCV 99 H MCHC 30 L RDW 18.1 H Lymph % (Auto) [place] % (Auto) Lymph # (Auto) [place] # (Auto) Seg Neutrophils % Seg Neuts % (Manual) 83.0 H Lymphocytes % (Manual) 4.0 L Monocytes % (Manual) 9.0 H Seg Neutrophils # Seg Neutrophils # Man 22.9 H Lymphocytes # (Manual) 1.1 L Monocytes # (Manual) 2.5 H PT D-Dimer Heparin Anti-Xa Level ABG pH ABG pO2 ABG HCO3 ABG O2 Saturation ABG Base Excess ABG Hemoglobin Sodium Potassium Chloride 108.8 H Carbon Dioxide 17 L BUN 26 H Creatinine 1.9 H Glucose 141 H POC Glucose Calcium Ferritin Total Bilirubin AST ALT Lactate Dehydrogenase Total Creatine Kinase Troponin T 0.503 H* C-Reactive Protein Albumin 3.1 L Urine WBC (Auto) Urine Creatinine Urine Total Protein Complement C3 Coronavirus (PCR) Hepatitis C Antibody 05/16/21 05/17/21 05/17/21 18:40 00:02 04:52 WBC RBC Hgb 8.8 L Hct 28.5 L D MCV MCHC RDW Lymph % (Auto) [place] % (Auto) Lymph # (Auto) [place] # (Auto) Seg Neutrophils % Seg Neuts % (Manual) Lymphocytes % (Manual) Monocytes % (Manual) Seg Neutrophils # Seg Neutrophils # Man Lymphocytes # (Manual) Monocytes # (Manual) PT D-Dimer Heparin Anti-Xa Level ABG pH ABG pO2 ABG HCO3 ABG O2 Saturation ABG Base Excess ABG Hemoglobin Sodium Potassium Chloride Carbon Dioxide BUN Creatinine Glucose POC Glucose 114 H Calcium Ferritin Total Bilirubin AST ALT Lactate Dehydrogenase Total Creatine Kinase Troponin T 0.400 H* D C-Reactive Protein Albumin Urine WBC (Auto) Urine Creatinine Urine Total Protein Complement C3 Coronavirus (PCR) Hepatitis C Antibody 05/17/21 05/17/21 05/17/21 04:52 05:15 06:50 WBC RBC Hgb Hct MCV MCHC RDW Lymph % (Auto) [place] % (Auto) Lymph # (Auto) [place] # (Auto) Seg Neutrophils % Seg Neuts % (Manual) Lymphocytes % (Manual) Monocytes % (Manual) Seg Neutrophils # Seg Neutrophils # Man Lymphocytes # (Manual) Monocytes # (Manual) PT D-Dimer Heparin Anti-Xa Level ABG pH ABG pO2 193.7 H ABG HCO3 27.7 H ABG O2 Saturation 99.2 H ABG Base Excess 3.4 H ABG Hemoglobin 9.2 L Sodium 146 H Potassium Chloride 110.3 H Carbon Dioxide BUN 33 H Creatinine 2.3 H Glucose 120 H POC Glucose 109 H Calcium Ferritin Total Bilirubin AST ALT Lactate Dehydrogenase Total Creatine Kinase Troponin T C-Reactive Protein Albumin Urine WBC (Auto) Urine Creatinine Urine Total Protein Complement C3 Coronavirus (PCR) Hepatitis C Antibody 05/17/21 05/17/21 05/17/21 10:30 11:33 15:35 WBC RBC Hgb Hct MCV MCHC RDW Lymph % (Auto) [place] % (Auto) Lymph # (Auto) [place] # (Auto) Seg Neutrophils % Seg Neuts % (Manual) Lymphocytes % (Manual) Monocytes % (Manual) Seg Neutrophils # Seg Neutrophils # Man Lymphocytes # (Manual) Monocytes # (Manual) PT D-Dimer Heparin Anti-Xa Level ABG pH 7.457 H ABG pO2 162.5 H 103.7 H ABG HCO3 27.7 H 27.5 H ABG O2 Saturation ABG Base Excess 3.6 H ABG Hemoglobin 10.1 L 11.5 L Sodium Potassium Chloride Carbon Dioxide BUN Creatinine Glucose POC Glucose 122 H Calcium Ferritin Total Bilirubin AST ALT Lactate Dehydrogenase Total Creatine Kinase Troponin T C-Reactive Protein Albumin Urine WBC (Auto) Urine Creatinine Urine Total Protein Complement C3 Coronavirus (PCR) Hepatitis C Antibody 05/17/21 05/17/21 05/17/21 16:21 18:18 23:29 WBC RBC Hgb 9.6 L Hct 30.3 L MCV MCHC RDW Lymph % (Auto) [place] % (Auto) Lymph # (Auto) [place] # (Auto) Seg Neutrophils % Seg Neuts % (Manual) Lymphocytes % (Manual) Monocytes % (Manual) Seg Neutrophils # Seg Neutrophils # Man Lymphocytes # (Manual) Monocytes # (Manual) PT D-Dimer Heparin Anti-Xa Level ABG pH ABG pO2 ABG HCO3 ABG O2 Saturation ABG Base Excess ABG Hemoglobin Sodium Potassium Chloride Carbon Dioxide BUN Creatinine Glucose POC Glucose 133 H 111 H Calcium Ferritin Total Bilirubin AST ALT Lactate Dehydrogenase Total Creatine Kinase Troponin T C-Reactive Protein Albumin Urine WBC (Auto) Urine Creatinine Urine Total Protein Complement C3 Coronavirus (PCR) Hepatitis C Antibody 05/18/21 05/18/21 05/18/21 04:15 04:15 05:01 WBC 16.8 H RBC 3.03 L Hgb 8.9 L Hct 28.7 L MCV 95 H MCHC 31 L RDW 16.4 H Lymph % (Auto) [place] % (Auto) Lymph # (Auto) [place] # (Auto) Seg Neutrophils % Seg Neuts % (Manual) Lymphocytes % (Manual) Monocytes % (Manual) Seg Neutrophils # Seg Neutrophils # Man Lymphocytes # (Manual) Monocytes # (Manual) PT D-Dimer Heparin Anti-Xa Level ABG pH ABG pO2 ABG HCO3 ABG O2 Saturation ABG Base Excess ABG Hemoglobin Sodium Potassium Chloride Carbon Dioxide BUN 40 H Creatinine 2.1 H Glucose 115 H POC Glucose 113 H Calcium Ferritin Total Bilirubin AST ALT Lactate Dehydrogenase Total Creatine Kinase Troponin T C-Reactive Protein Albumin Urine WBC (Auto) Urine Creatinine Urine Total Protein Complement C3 Coronavirus (PCR) Hepatitis C Antibody Chest x-ray: pending Allied health notes reviewed: nursing
--- NOTE | 2021-05-18 10:55 | Progress Note ---
<JANUSZ PETERSEN - Last Filed: 05/18/21 18:19> Assessment and Plan Assessment and plan: This is a 56-year-old male with a nicotine abuse, A. fib, hypertension, and chronic medication noncompliance and homelessness who presented to emergency department on 05/04 with complaints of dyspnea on exertion for the past month worsening over the past 3 days, intermittent left-sided chest tightness with activity, and persistent cough without fever. Work-up in the emergency department revealed anemia, hyponatremia, elevated BUN/creatinine and transaminitis. Patient was admitted to the hospitalist service with acute kidney injury and accelerated hypertension. Hospital course to date 05/04/2021. Cardiology was considering patient for Manufacturing Intern. However, patient with elevated creatinine therefore will hold off on cath evaluation. Nephrology consultation for acute kidney injury. Etiology likely secondary to vasomotor nephropathy/dehydration. We will start IV fluid hydration. Check renal ultra sound to rule out obstructive uropathy. We will resume home medications for the accelerated hypertension 05/05/2021. Echocardiogram reveals EF 35-40% with moderate concentric left ventricular hypertrophy. Moderate global hypokinesis of left ventricle. Mild mitral regurgitation. Mild pulmonary hypertension. Troponins are believed to be elevated in the setting of acute kidney injury. No beta-blockers due to cocaine use continue heparin and nitro drip. Continue CIWA protocol. Await urine studies 05/06/2021. Patient decompensated yesterday with worsening respiratory failure and difficulty to protect airway. Patient was breathing sonorously, and hypoxic. Patient was intubated and currently is on mechanical ventilation. Patient with AC mode ventilation rate of 20, tidal volume 450, FiO2 40% and PEEP of 6. COVID PCR testing on 05/05/2021 was found to be positive. Echocardiogram completed on this admission shows worsening EF from August 2020. Echocardiogram now reveals moderate concentric left ventricular hypertrophy with moderate global hypokinesis and EF of 35-40%. Mild pulmonary hypertension. 05/08: Continue current management, renal stable, LFTs stable and if improved randall l start on statin therapy. 05/09: Patient is febrile, will panculture, PSV today. CRP pending. Mucoid discharge noted from meatus which was sent for culture. Hypernatremia persists, free water flushes increased 05/10: PSV trial per CCM, T-max 102.3, given mildly elevated procalcitonin started on ceftriaxone 2 g every 24 for 2 days per ID. Overnight patient had atrial fibrillation which was treated with Cardizem drip and converted to sinus rhythm. Metoprolol p.o. increased to 3 times daily. 05/11: Patient still running fevers and if still febrile tomorrow will escalate to cefepime per ID as he is currently on ceftriaxone, CCM attempted PSV but patient became agitated and was switched back to pressure control. Lower extremity ultrasound shows acute DVT and started on heparin drip. Started on scheduled Librium. Patient remains with hypernatremia and elevated creatinine and on IV fluids. Free water flushes adjusted. Started on vancomycin today 05/12: Patient placed on pressure support trial without fentanyl, hypernatremia improving, hyperkalemia noted. Slight improvement to renal function. 05/13: Patient was extubated today, ID change antibiotics to Zosyn for Enterococcus, was started tapering Librium in the morning, renal function slightly improved. Possible transfer to floor tomorrow. ST evaluation for swallow ordered. 05/14: Patient became hypoglycemic overnight and started on dextrose IV fluids. Accu-Chek fingersticks have been low but on a.m. BMP patient blood glucose is 100. Other BMP pending. Feeding tube replaced due to need for enteral access and patient being severely confused. Renal functions remains the same. Upon confirmation will restart tube feedings, p.o. medications and free water flushes. 05/15: Remains confused/somnolent on my encounter. Librium taper in 24hrs per [facility] recs. Remains hypertensive. Added amlodipine 10 mg NG and labetalol prn. ST eval today but doubt he will participate. Potassium replaced. Renal function improving overall, however, hypernatremic. Inc TF FWF to 250 cc q4hr. 05/16: Respiratory distress this AM, hypoxic in 60's not protecting airway. Required intubation, patient now ICU patient. Reduce fluid to FWF only, IVF d/c off jun. CXR ordered demonstrates pulmonary edema. Lasix 40 mg IV bid ordered. Troponin elevated, continue heparin gtt. Would recommend decreasing sedating medications at this point, agree with librium taper. 05/17: Patient remains on the vent and sedated, RASS -3. Plan for possible sedat ion vacation today. D/w CCM plan to wean for possible extubation on the vent. 05/18: Tolerated 4hrs of sedation vacation yesterday, on low dose fentanyl this am. Patient is tolerating PST this am. Plan to wean off sedation and wean vent setting for possible extubation today. Assessment and Plan Acute hypoxic respiratory failure (worsened) -[facility] consulted, appreciate recommendations -Intubated on 05/05 with 7.50 ETT at 20 over the lips in the ED and extubated 05/13 -Reintubated on 05/16 -05/16 CXR increased BL interstitial opacities -Pulmonary perfusion study showed low probability of pulmonary embolism -This am Vent Setting: PS-40%,6 PS-10 -ABG 2hrs post PST -CCM consulted, appreciate recommendations -Plan to wean for possible extubation -VAP bundle addressed -Aspiration precaution HOB above 30 -Daily SBT and SAT trials as tolerated -Daily ABG and CXR -Continue SPO2 monitoring for SPO2 goal above 92% Severe COVID-19 pneumonia/leukocytosis, Enterococcus in urine -Infectious disease consulted, appreciate recommendations -COVID-19 PCR positive -Continue droplet/precautions -Not a candidate for remdesivir given acute kidney injury -Dexamethasone for 10 days -Anticoagulation per hospital protocol -Trend COVID-19 from 2 markers (ferritin, D-dimer, CRP, LDH) -Continue IV Abx per ID Acute DVT -Bilateral lower extremity Doppler ultrasound shows acute DVT -On Heparin drip per protocol -Monitor for s/s of active bleeding -Trend CBC and Coags Acute kidney injury likely secondary to vasomotor nephropathy -Nephrology consulted, appreciate recommendations -Avoid nephrotoxic medications -Renally dose medication -Strict intake and output -FeNa indicates prerenal -Renal ultrasound completed: 1.7 hyper echoic mass within the left upper pole, Monitor for now follow-up with CT once stable Metabolic encephalopathy -Intubated and sedated on fentanyl, RASS -3 -On Librium and Seroquel -Plan to wean off sedation, SAT today -Maintain sleep-wake cycle -Monitor QTC -Avoid delirium -Bilateral restraints in place for safety -May need psych consult S/p hypertensive emergency, h/o HTN -Continue BB -Blood pressure monitoring per protocol -Resume home antihypertensive regimen as tolerated Heart failure reduced EF, cardiomyopathy, NSTEMI, paroxysmal atrial fibrillation -Continue beta-sylvia and aspirin -Resume statin therapy -Cardiology consulted, appreciate recommendations -Echo 05/04/2021-EF 35 to 40%. Moderate concentric LVH. Moderate global hypokinesis of left ventricle. Mild mitral regurgitation. Mild pulmonary hypertension. Echocardiogram reviewed (08/27/2020): LVEF is 50 to 55%. Mild to moderate concentric LVF. Severe diastolic dysfunction is present (restrictive filling). Right ventricle is mildly hypokinetic. RVSP is 48 mmHg. No valvular abnormalities. -S/p heparin drip for 24 hours -Patient had atrial fibrillation overnight on 05/10 and was treated with a Cardizem drip -Beta-sylvia increased Polysubstance abuse, tobacco abuse -UDS positive for amphetamines -We will need cessation counseling when appropriate Transaminitis, h/o hepatitis C -Renal ultrasound showed incidental finding of cholelithiasis -Trend LFTs -Continue supportive management Anemia -Trend CBC -Transfuse for hemoglobin less than 7 DVT/ GI prophylaxis -Heparin gtt -PPI The high probability of a clinically significant, sudden or life threatening deterioration of the [cardio/resp] system(s) required my full and direct attention, intervention and personal management. The aggregate critical care time was [60] minutes. This time is in addition to time spent performing reported procedures but includes the following: [x] Data Review and interpretation [x] Patient assessment and monitoring of vital signs [x] Documentation [x] Medication orders and management Disposition Plan: ICU Total Time Spent with Patient (Minutes): 60 History Interval history: Patient seen and examined at the bedside. Remains on the vent. Patient was placed back on sedation after 4hrs of sedation vacation yesterday. Remains on low dose fentanyl gtt, arousable and following simple commands. Hospitalist Physical - Constitutional Vitals: Temp Pulse Resp BP Pulse Ox 98.7 F 62 14 114/73 99 05/18/21 07:13 05/18/21 10:00 05/18/21 10:00 05/18/21 10:00 05/18/21 10:00 General appearance: Present: no acute distress, other (Intubated and sedated) - EENT Eyes: Present: PERRL ENT: hearing intact - Neck Neck: Present: normal ROM - Respiratory Respiratory effort: normal Respiratory: bilateral: rhonchi - Cardiovascular Rhythm: regular Heart Sounds: Present: S1 & S2 - Extremities Extremities: no ischemia, pulses intact, pulses symmetrical Extremity abnormal: edema - Peripheral Assessment Generalized Edema Type: Non-pitting Edema Degree: 1+ Capillary Refill: < 3 seconds Skin Temperature: Warm Peripheral Pulses: within normal limits - Abdominal General gastrointestinal: soft, non-distended, normal bowel sounds - Integumentary Integumentary: Present: warm, dry - Psychiatric Psychiatric: other (Intubated and sedated) - Neurologic Neurologic: other (Intubated and sedated) - Allied Health Allied health notes reviewed: nursing HEART Score - HEART Score EKG: Non-specific Age: 45-65 Risk factors: 1-2 risk factors Troponin: Troponin T 0.400 ng/mL (0.00-0.029) H* D 05/16/21 18:40 Troponin: 1-3x normal limit - Critical Actions Critical Actions: 4-6 pts:12-16.6% risk of adverse cardiac event. Should be admitted Results - Labs CBC & Chem 7: 05/18/21 04:15 05/18/21 04:15 Labs: Laboratory Last Values WBC 16.8 K/mm3 (4.5-11.0) H 05/18/21 04:15 RBC 3.03 M/mm3 (3.65-5.03) L 05/18/21 04:15 Hgb 8.9 gm/dl (11.8-15.2) L 05/18/21 04:15 Hct 28.7 % (35.5-45.6) L 05/18/21 04:15 MCV 95 fl (84-94) H 05/18/21 04:15 MCH 29 pg (28-32) 05/18/21 04:15 MCHC 31 % (32-34) L 05/18/21 04:15 RDW 16.4 % (13.2-15.2) H 05/18/21 04:15 Plt Count 319 K/mm3 (140-440) 05/18/21 04:15 Lymph % (Auto) Provider Service Representative 05/16/21 10:21 [place] % (Auto) Provider Service Representative 05/16/21 10:21 Eos % (Auto) Provider Service Representative 05/16/21 10:21 Baso % (Auto) Provider Service Representative 05/16/21 10:21 Lymph # (Auto) Provider Service Representative 05/16/21 10:21 [place] # (Auto) Provider Service Representative 05/16/21 10:21 Eos # (Auto) Provider Service Representative 05/16/21 10:21 Baso # (Auto) Provider Service Representative 05/16/21 10:21 Add Manual Diff Complete 05/16/21 10:21 Total Counted 100 05/16/21 10:21 Seg Neutrophils % Provider Service Representative 05/16/21 10:21 Seg Neuts % (Manual) 83.0 % (40.0-70.0) H 05/16/21 10:21 Band Neutrophils % 2.0 % 05/16/21 10:21 Lymphocytes % (Manual) 4.0 % (13.4-35.0) L 05/16/21 10:21 Reactive Lymphs % (Man) 0 % 05/16/21 10:21 Monocytes % (Manual) 9.0 % (0.0-7.3) H 05/16/21 10:21 Eosinophils % (Manual) 0 % (0.0-4.3) 05/16/21 10:21 Basophils % (Manual) 0 % (0.0-1.8) 05/16/21 10:21 Metamyelocytes % 0 % 05/16/21 10:21 Myelocytes % 2.0 % 05/16/21 10:21 Promyelocytes % 0 % 05/16/21 10:21 Blast Cells % 0 % 05/16/21 10:21 Nucleated RBC % Not Reportable 05/16/21 10:21 Seg Neutrophils # Provider Service Representative 05/16/21 10:21 Seg Neutrophils # Man 22.9 K/mm3 (1.8-7.7) H 05/16/21 10:21 Band Neutrophils # 0.6 K/mm3 05/16/21 10:21 Lymphocytes # (Manual) 1.1 K/mm3 (1.2-5.4) L 05/16/21 10:21 Abs React Lymphs (Man) 0.0 K/mm3 05/16/21 10:21 Monocytes # (Manual) 2.5 K/mm3 (0.0-0.8) H 05/16/21 10:21 Eosinophils # (Manual) 0.0 K/mm3 (0.0-0.4) 05/16/21 10:21 Basophils # (Manual) 0.0 K/mm3 (0.0-0.1) 05/16/21 10:21 Metamyelocytes # 0.0 K/mm3 05/16/21 10:21 Myelocytes # 0.6 K/mm3 05/16/21 10:21 Promyelocytes # 0.0 K/mm3 05/16/21 10:21 Blast Cells # 0.0 K/mm3 05/16/21 10:21 WBC Morphology Not Reportable 05/16/21 10:21 Hypersegmented Neuts Not Reportable 05/16/21 10:21 Hyposegmented Neuts Not Reportable 05/16/21 10:21 Hypogranular Neuts Not Reportable 05/16/21 10:21 Smudge Cells Not Reportable 05/16/21 10:21 Toxic Granulation Not Reportable 05/16/21 10:21 Toxic Vacuolation Not Reportable 05/16/21 10:21 Dohle Bodies Not Reportable 05/16/21 10:21 Pelger-Huet Anomaly Not Reportable 05/16/21 10:21 Jesse Rods Not Reportable 05/16/21 10:21 Platelet Estimate Consistent w auto 05/16/21 10:21 Clumped Platelets Few 05/16/21 10:21 Plt Clumps, EDTA Not Reportable 05/16/21 10:21 Large Platelets Not Reportable 05/16/21 10:21 Giant Platelets Not Reportable 05/16/21 10:21 Platelet Satelliting Not Reportable 05/16/21 10:21 Plt Morphology Comment Not Reportable 05/16/21 10:21 RBC Morphology Not Reportable 05/16/21 10:21 Dimorphic RBCs Not Reportable 05/16/21 10:21 Polychromasia Not Reportable 05/16/21 10:21 Hypochromasia Not Reportable 05/16/21 10:21 Poikilocytosis Not Reportable 05/16/21 10:21 Anisocytosis 1+ 05/16/21 10:21 Microcytosis Not Reportable 05/16/21 10:21 Macrocytosis Few 05/16/21 10:21 Spherocytes Not Reportable 05/16/21 10:21 Pappenheimer Bodies Not Reportable 05/16/21 10:21 Sickle Cells Not Reportable 05/16/21 10:21 Target Cells Not Reportable 05/16/21 10:21 Tear Drop Cells Not Reportable 05/16/21 10:21 Ovalocytes Not Reportable 05/16/21 10:21 Helmet Cells Not Reportable 05/16/21 10:21 Murphy-Smoot Bodies Not Reportable 05/16/21 10:21 [place] Rings Not Reportable 05/16/21 10:21 [place] Cells Not Reportable 05/16/21 10:21 Bite Cells Not Reportable 05/16/21 10:21 Crenated Cell Not Reportable 05/16/21 10:21 Elliptocytes Not Reportable 05/16/21 10:21 Acanthocytes (Spur) Not Reportable 05/16/21 10:21 Rouleaux Not Reportable 05/16/21 10:21 Hemoglobin C Crystals Not Reportable 05/16/21 10:21 Schistocytes Not Reportable 05/16/21 10:21 Malaria parasites Not Reportable 05/16/21 10:21 Tomi Bodies Not Reportable 05/16/21 10:21 Hem Pathologist Commnt No 05/16/21 10:21 PT 15.6 Sec. (12.2-14.9) H 05/11/21 14:43 INR 1.12 (0.87-1.13) 05/11/21 14:43 APTT 30.3 Sec. (24.2-36.6) 05/11/21 14:43 D-Dimer 2730.61 ng/mlDDU (0-234) H 05/12/21 07:19 Heparin Anti-Xa Level 0.40 U.I./ml (0.3-0.7) 05/18/21 04:15 ABG pH 7.422 pH Units (7.350-7.450) 05/17/21 15:35 ABG pCO2 43.2 mm Hg 05/17/21 15:35 ABG pO2 103.7 mm Hg (80.0-90.0) H 05/17/21 15:35 ABG HCO3 27.5 mmol/L (20.0-26.0) H 05/17/21 15:35 ABG O2 Saturation 97.8 % (95.0-99.0) 05/17/21 15:35 ABG O2 Content 15.7 (0.0-44) 05/17/21 15:35 ABG Base Excess 2.7 mmol/L (-2.0-3.0) 05/17/21 15:35 ABG Hemoglobin 11.5 gm/dl (14.0-18.0) L 05/17/21 15:35 ABG Carboxyhemoglobin 1.5 % (0.0-5.0) 05/17/21 15:35 ABG Methemoglobin 0.5 % (0.0-1.5) 05/17/21 15:35 Oxyhemoglobin 95.8 % (95.0-99.0) 05/17/21 15:35 FiO2 40 % 05/17/21 15:35 Sodium 138 mmol/L (137-145) D 05/18/21 04:15 Potassium 4.4 mmol/L (3.6-5.0) 05/18/21 04:15 Chloride 102.8 mmol/L (98-107) 05/18/21 04:15 Carbon Dioxide 26 mmol/L (22-30) 05/18/21 04:15 Anion Gap 14 mmol/L 05/18/21 04:15 BUN 40 mg/dL (9-20) H 05/18/21 04:15 Creatinine 2.1 mg/dL (0.8-1.3) H 05/18/21 04:15 Estimated GFR 33 ml/min 05/18/21 04:15 BUN/Creatinine Ratio 19 % 05/18/21 04:15 Glucose 115 mg/dL (75-100) H 05/18/21 04:15 POC Glucose 113 mg/dL (70-105) H 05/18/21 05:01 Calcium 8.5 mg/dL (8.4-10.2) 05/18/21 04:15 Phosphorus 4.00 mg/dL (2.5-4.5) 05/14/21 15:44 Magnesium 2.00 mg/dL (1.7-2.3) 05/14/21 15:44 Ferritin 640.2 ng/mL (30.0-300.0) H 05/12/21 07:19 Total Bilirubin 0.60 mg/dL (0.1-1.2) 05/16/21 10:21 AST 34 units/L (5-40) 05/16/21 10:21 ALT 51 units/L (7-56) 05/16/21 10:21 Alkaline Phosphatase 74 units/L (35-129) 05/16/21 10:21 Lactate Dehydrogenase 314 units/L (91-180) H 05/12/21 07:19 Total Creatine Kinase 406 units/L (55-170) H 05/04/21 08:42 Troponin T 0.400 ng/mL (0.00-0.029) H* D 05/16/21 18:40 C-Reactive Protein 1.60 mg/dL (0.00-1.30) H 05/12/21 07:19 Total Protein 7.4 g/dL (6.3-8.2) 05/16/21 10:21 Albumin 3.1 g/dL (3.9-5) L 05/16/21 10:21 Albumin/Globulin Ratio 0.7 % 05/16/21 10:21 Triglycerides 144 mg/dL (2-149) 05/10/21 04:57 Cholesterol 140 mg/dL (50-199) 05/04/21 07:25 LDL Cholesterol Direct 89 mg/dL (50-130) 05/04/21 07:25 HDL Cholesterol 48 mg/dL (40-59) 05/04/21 07:25 Cholesterol/HDL Ratio 2.91 % 05/04/21 07:25 Procalcitonin 0.63 ng/mL (<0.15) 05/09/21 15:53 Urine Color Yellow (Yellow) 05/09/21 13:22 Urine Turbidity Turbid (Clear) 05/09/21 13:22 Urine pH 5.0 (5.0-7.0) 05/09/21 13:22 Ur Specific [place] 1.018 (1.003-1.030) 05/09/21 13:22 Urine Protein 100 mg/dl mg/dL (Negative) 05/09/21 13:22 Urine Glucose (UA) Neg mg/dL (Negative) 05/09/21 13:22 Urine Ketones Tr mg/dL (Negative) 05/09/21 13:22 Urine Blood Mod (Negative) 05/09/21 13:22 Urine Nitrite Neg (Negative) 05/09/21 13:22 Urine Bilirubin Neg (Negative) 05/09/21 13:22 Urine Urobilinogen < 2.0 mg/dL (<2.0) 05/09/21 13:22 Ur Leukocyte Esterase Mod (Negative) 05/09/21 13:22 Urine WBC (Auto) 25.0 /HPF (0.0-6.0) H 05/09/21 13:22 Urine RBC (Auto) 8.0 /HPF (0.0-6.0) 05/09/21 13:22 U Epithel Cells (Auto) < 1.0 /HPF (0-13.0) 05/09/21 13:22 Urine Bacteria (Auto) 1+ /HPF (Negative) 05/09/21 00:40 Uric Acid Crystals Few 05/09/21 00:40 Triple Phos Crystals 2+ 05/09/21 13:22 Amorphous Crystals Few 05/09/21 00:40 Urine Mucus Few /HPF 05/09/21 00:40 Urine Creatinine 100.8 mg/dL (0.1-20.0) H 05/10/21 11:03 Protein/Creatinin Ratio 0.42 05/10/21 11:03 Urine Sodium 61 mmol/L 05/05/21 09:57 Urine Total Protein 42 mg/dL (5-11.8) H 05/10/21 11:03 Urine Opiates Screen Negative 05/04/21 Unknown Urine Methadone Screen Negative 05/04/21 Unknown Ur Barbiturates Screen Negative 05/04/21 Unknown Ur Phencyclidine Scrn Negative 05/04/21 Unknown Ur Amphetamines Screen Positive 05/04/21 Unknown U Benzodiazepines Scrn Negative 05/04/21 Unknown Urine Cocaine Screen Negative 05/04/21 Unknown U Marijuana (THC) Screen Negative 05/04/21 Unknown Drugs of Abuse Note Disclamer 05/04/21 Unknown Immunofix Electrophor see below 05/05/21 03:40 AUDRA Screen Negative (Negative) 05/05/21 03:40 Proteinase 3 (PR3) Ab <1.0 AI (<1.0) 05/05/21 03:40 Myeloperoxidase Ab <1.0 AI (<1.0) 05/05/21 03:40 Complement C3 72 mg/dL (82-185) L 05/05/21 03:40 Complement C4 17 mg/dL (15-53) 05/05/21 03:40 Coronavirus (PCR) Positive (Negative) A 05/05/21 08:30 Hepatitis A IgM Ab Non-reactive (NonReactive) 05/05/21 03:40 Hep Bs Antigen Non-reactive (Negative) 05/05/21 03:40 Hep B Core IgM Ab Non-reactive (NonReactive) 05/05/21 03:40 Hepatitis C Antibody Reactive (NonReactive) A 05/05/21 03:40 Microbiology: Microbiology 05/16/21 10:31 Tracheal Aspirate Sputum Culture - Preliminary Gram Negative Osmany Merino/IV: Voiding Method Indwelling Catheter Active Medications - Current Medications Current Medications: Generic Name Dose Route Start Last Admin Trade Name Freq PRN Reason Stop Dose Admin Acetaminophen 650 mg 05/04/21 12:34 05/11/21 11:24 Acetaminophen 325 Mg Tab PO 650 mg Q4H PRN Administration Pain MILD(1-3)/Fever >100.5/MARIA Acetaminophen 650 mg 05/07/21 16:00 05/11/21 16:25 Acetaminophen 650 Mg Rect Supp [place] 650 mg Q4H PRN Administration Pain, Mild (1-3) Aspirin 81 mg 05/06/21 14:00 05/18/21 10:34 Aspirin 81 Mg Tab Chew PO 81 mg QDAY RISHI Administration Atorvastatin Calcium 40 mg 05/09/21 22:00 05/17/21 22:16 Atorvastatin 40 Mg Tab FEEDTUBE 40 mg QHS RISHI Administration Chlordiazepoxide HCl 75 mg 05/11/21 15:00 05/18/21 06:16 Chlordiazepoxide 25 Mg Cap PO 75 mg Q8H RISHI Administration Dextrose 0 ml 05/09/21 10:49 05/14/21 06:55 Dextrose 10% *Hypoglycemia IV 250 ml PRN PRN Administration Hypoglycemia Famotidine 10 mg 05/17/21 10:00 05/18/21 10:35 Famotidine 10 Mg Tab FEEDTUBE 10 mg BID RISHI Administration Fentanyl 50 mcg 05/16/21 09:56 Fentanyl 100 Mcg/2 Ml Inj IV Q10MIN PRN ANALGESIA Haloperidol Lactate 5 mg 05/09/21 18:32 05/15/21 20:18 Haloperidol Lactate 5 Mg/1 Ml Inj IV 5 mg Q6H PRN Administration Agitation Heparin Sodium (Porcine) 3,000 unit 05/11/21 14:14 Heparin 10,000 Units/10 Ml Vial IV Q6H PRN Anti-Xa Assay < 0.1 units/ml Hydralazine HCl 50 mg 05/04/21 14:00 05/18/21 06:15 Hydralazine 25 Mg Tab PO Not Given Q8HR RISHI Hydrophilic Ointment 1 applic 05/05/21 15:21 Lip Therapy Vaseline TP Q2HR PRN Dry Lips Heparin Sodium/Sodium Chloride 25,000 unit in 500 mls @ 24 mls/hr 05/11/21 15:00 05/18/21 06:17 Heparin/ 0.45% Nacl-25,000 Unit/500 Ml IV 1,550 units/hr TITR RISHI 31 mls/hr Titration Protocol 1,200 UNITS/HR Fentanyl Citrate 2,000 mcg in 100 mls @ 4.082 mls/hr 05/16/21 10:00 05/18/21 10:40 Fentanyl Drip Premix IV 0 mcg/kg/hr TITR RISHI 0 mls/hr Titration Protocol 1 MCG/KG/HR Insulin Human Lispro 0 unit 05/10/21 09:40 05/12/21 16:49 Insulin Lispro 100 Unit/Ml SUB-Q 2 unit Q6HR PRN Administration Hyperglycemia Protocol Labetalol HCl 10 mg 05/15/21 10:24 Labetalol 20 Mg/4 Ml Inj IV Q4H PRN sbp> 160. Metoprolol Tartrate 50 mg 05/10/21 14:00 05/18/21 07:45 Metoprolol Tartrate 50 Mg Tab FEEDTUBE Not Given TID RISHI Multi-Ingred Cream/Lotion/Oil/Oint 1 applic 05/05/21 15:21 Mineral Oil/Petrolatum, White Ophth Oint 3.5 Gm OU Q4HR PRN Dry Eye(s) Ondansetron HCl 4 mg 05/04/21 12:34 05/04/21 21:51 Ondansetron 4 Mg/2 Ml Inj IV 4 mg Q8H PRN Administration Nausea And Vomiting Quetiapine Fumarate 200 mg 05/09/21 22:00 05/18/21 10:35 Quetiapine 200 Mg Tab PO 200 mg BID RISHI Administration Senna/Docusate Sodium 1 tab 05/05/21 22:00 05/18/21 10:35 Sennosides/Docusate Sodium 8.6/50 Mg Tab FEEDTUBE 1 tab BID RISHI Administration Sodium Chloride 10 ml 05/04/21 22:00 05/18/21 10:41 Sodium Chloride 0.9% 10 Ml Flush Syringe IV 10 ml BID RISHI Administration Sodium Chloride 10 ml 05/04/21 12:34 05/06/21 13:59 Sodium Chloride 0.9% 10 Ml Flush Syringe IV 10 ml PRN PRN Administration LINE FLUSH Sodium Chloride 10 ml 05/09/21 09:46 Sodium Chloride 0.9% 50 Ml Ivpb IV PRN PRN FLUSH Nutrition/Malnutrition Assess - Dietary Evaluation Nutrition/Malnutrition Findings: Nutrition Notes Start: 05/05/21 16:15 Freq: Status: Active Protocol: Document 05/16/21 10:32 ROSAURA (Rec: 05/16/21 10:48 ROSAURA [id number]) Nutrition Notes Initial or Follow up Reassessment Current Diagnosis Acute Kidney Injury, Hypertension,Heart Failure, Respiratory Failure Other Pertinent Diagnosis Severe COVID-19 pneu, metabolic encephalopathy, polysubstance dependence Current Diet TF - Promote at 60ml/hr Labs/Tests Reviewed Pertinent Medications Lasix, Heparin gtt Height 5 ft 7 in Weight 81.647 kg [place] Body Weight (kg) 67.27 BMI 28.1 Weight Status Overweight Subjective/Other Information Pt extubated on 05/13, however, was re-intubated this am sec to resp distress. Percent of energy/protein needs met: 75% energy 92% pro Minimum of two criteria No #1 Nutrition Diagnosis Inadequate oral intake Diagnosis Progress(for reassessment Continues documentation) Is patient on ventilator? Yes Is Patient Ambulatory and/or Out of Bed No REE-([place]-[facility] Jeor-confined to bed) [phone] [facility]culation [facility] Additional Notes Pro needs 1.2-2g/k-163g/ day Fluid needs 1ml/kcal Nutrition Intervention Nutrition Support: Continue Promote at 60ml/hr with 200ml water flush q4 until hypernatremia resolved. When Na lab is WNL, reduce water flush to 50ml q4h. Kcal 1,440 Protein (gm) 90 Carbohydrates (gm) 187 Fat (gm) 37 Fluid (mL) 1,208 Fiber (gm) 0 Goal #1 TF tolerance Goal #2 TF to meet at least 75% energy and pro needs Follow-Up By: 05/20/21 Additional Comments F/U: TF tolerance, Na lab/ water flushes, BG lab/need for reduced CHO formula, vent status <VIKRAM SAENZ - Last Filed: 05/19/21 07:24> Assessment and Plan Assessment and plan: I saw and evaluated the patient. I agree with the findings and the plan of care as documented in the Nurse Practitioner's~note, with the following corrections and additions. Hospitalist Physical - Constitutional Vitals: Temp Pulse Resp BP Pulse Ox 99.4 F 80 17 190/119 97 05/19/21 07:13 05/19/21 06:00 05/19/21 06:00 05/19/21 06:00 05/19/21 06:00 HEART Score - HEART Score Troponin: Troponin T 0.400 ng/mL (0.00-0.029) H* D 05/16/21 18:40 Results - Labs CBC & Chem 7: 05/19/21 05:23 05/19/21 05:23 Labs: Laboratory Last Values WBC 18.5 K/mm3 (4.5-11.0) H 05/19/21 05:23 RBC 3.31 M/mm3 (3.65-5.03) L 05/19/21 05:23 Hgb 9.9 gm/dl (11.8-15.2) L 05/19/21 05:23 Hct 31.1 % (35.5-45.6) L 05/19/21 05:23 MCV 94 fl (84-94) 05/19/21 05:23 MCH 30 pg (28-32) 05/19/21 05:23 MCHC 32 % (32-34) 05/19/21 05:23 RDW 16.9 % (13.2-15.2) H 05/19/21 05:23 Plt Count 370 K/mm3 (140-440) 05/19/21 05:23 Lymph % (Auto) Provider Service Representative 05/16/21 10:21 [place] % (Auto) Provider Service Representative 05/16/21 10:21 Eos % (Auto) Provider Service Representative 05/16/21 10:21 Baso % (Auto) Provider Service Representative 05/16/21 10:21 Lymph # (Auto) Provider Service Representative 05/16/21 10:21 [place] # (Auto) Provider Service Representative 05/16/21 10:21 Eos # (Auto) Provider Service Representative 05/16/21 10:21 Baso # (Auto) Provider Service Representative 05/16/21 10:21 Add Manual Diff Complete 05/16/21 10:21 Total Counted 100 05/16/21 10:21 Seg Neutrophils % Provider Service Representative 05/16/21 10:21 Seg Neuts % (Manual) 83.0 % (40.0-70.0) H 05/16/21 10:21 Band Neutrophils % 2.0 % 05/16/21 10:21 Lymphocytes % (Manual) 4.0 % (13.4-35.0) L 05/16/21 10:21 Reactive Lymphs % (Man) 0 % 05/16/21 10:21 Monocytes % (Manual) 9.0 % (0.0-7.3) H 05/16/21 10:21 Eosinophils % (Manual) 0 % (0.0-4.3) 05/16/21 10:21 Basophils % (Manual) 0 % (0.0-1.8) 05/16/21 10:21 Metamyelocytes % 0 % 05/16/21 10:21 Myelocytes % 2.0 % 05/16/21 10:21 Promyelocytes % 0 % 05/16/21 10:21 Blast Cells % 0 % 05/16/21 10:21 Nucleated RBC % Not Reportable 05/16/21 10:21 Seg Neutrophils # Provider Service Representative 05/16/21 10:21 Seg Neutrophils # Man 22.9 K/mm3 (1.8-7.7) H 05/16/21 10:21 Band Neutrophils # 0.6 K/mm3 05/16/21 10:21 Lymphocytes # (Manual) 1.1 K/mm3 (1.2-5.4) L 05/16/21 10:21 Abs React Lymphs (Man) 0.0 K/mm3 05/16/21 10:21 Monocytes # (Manual) 2.5 K/mm3 (0.0-0.8) H 05/16/21 10:21 Eosinophils # (Manual) 0.0 K/mm3 (0.0-0.4) 05/16/21 10:21 Basophils # (Manual) 0.0 K/mm3 (0.0-0.1) 05/16/21 10:21 Metamyelocytes # 0.0 K/mm3 05/16/21 10:21 Myelocytes # 0.6 K/mm3 05/16/21 10:21 Promyelocytes # 0.0 K/mm3 05/16/21 10:21 Blast Cells # 0.0 K/mm3 05/16/21 10:21 WBC Morphology Not Reportable 05/16/21 10:21 Hypersegmented Neuts Not Reportable 05/16/21 10:21 Hyposegmented Neuts Not Reportable 05/16/21 10:21 Hypogranular Neuts Not Reportable 05/16/21 10:21 Smudge Cells Not Reportable 05/16/21 10:21 Toxic Granulation Not Reportable 05/16/21 10:21 Toxic Vacuolation Not Reportable 05/16/21 10:21 Dohle Bodies Not Reportable 05/16/21 10:21 Pelger-Huet Anomaly Not Reportable 05/16/21 10:21 Jesse Rods Not Reportable 05/16/21 10:21 Platelet Estimate Consistent w auto 05/16/21 10:21 Clumped Platelets Few 05/16/21 10:21 Plt Clumps, EDTA Not Reportable 05/16/21 10:21 Large Platelets Not Reportable 05/16/21 10:21 Giant Platelets Not Reportable 05/16/21 10:21 Platelet Satelliting Not Reportable 05/16/21 10:21 Plt Morphology Comment Not Reportable 05/16/21 10:21 RBC Morphology Not Reportable 05/16/21 10:21 Dimorphic RBCs Not Reportable 05/16/21 10:21 Polychromasia Not Reportable 05/16/21 10:21 Hypochromasia Not Reportable 05/16/21 10:21 Poikilocytosis Not Reportable 05/16/21 10:21 Anisocytosis 1+ 05/16/21 10:21 Microcytosis Not Reportable 05/16/21 10:21 Macrocytosis Few 05/16/21 10:21 Spherocytes Not Reportable 05/16/21 10:21 Pappenheimer Bodies Not Reportable 05/16/21 10:21 Sickle Cells Not Reportable 05/16/21 10:21 Target Cells Not Reportable 05/16/21 10:21 Tear Drop Cells Not Reportable 05/16/21 10:21 Ovalocytes Not Reportable 05/16/21 10:21 Helmet Cells Not Reportable 05/16/21 10:21 Murphy-Smoot Bodies Not Reportable 05/16/21 10:21 [place] Rings Not Reportable 05/16/21 10:21 Alec Cells Not Reportable 05/16/21 10:21 Bite Cells Not Reportable 05/16/21 10:21 Crenated Cell Not Reportable 05/16/21 10:21 Elliptocytes Not Reportable 05/16/21 10:21 Acanthocytes (Spur) Not Reportable 05/16/21 10:21 Rouleaux Not Reportable 05/16/21 10:21 Hemoglobin C Crystals Not Reportable 05/16/21 10:21 Schistocytes Not Reportable 05/16/21 10:21 Malaria parasites Not Reportable 05/16/21 10:21 Tomi Bodies Not Reportable 05/16/21 10:21 Hem Pathologist Commnt No 05/16/21 10:21 PT 15.6 Sec. (12.2-14.9) H 05/11/21 14:43 INR 1.12 (0.87-1.13) 05/11/21 14:43 APTT 30.3 Sec. (24.2-36.6) 05/11/21 14:43 D-Dimer 2730.61 ng/mlDDU (0-234) H 05/12/21 07:19 Heparin Anti-Xa Level 0.47 U.I./ml (0.3-0.7) 05/19/21 05:23 ABG pH 7.428 pH Units (7.350-7.450) 05/18/21 12:50 ABG pCO2 43.3 mm Hg 05/18/21 12:50 ABG pO2 79.6 mm Hg (80.0-90.0) L 05/18/21 12:50 ABG HCO3 28.0 mmol/L (20.0-26.0) H 05/18/21 12:50 ABG O2 Saturation 97.0 % (95.0-99.0) 05/18/21 12:50 ABG O2 Content 8.4 (0.0-44) 05/18/21 12:50 ABG Base Excess 3.3 mmol/L (-2.0-3.0) H 05/18/21 12:50 ABG Hemoglobin 6.2 gm/dl (14.0-18.0) L 05/18/21 12:50 ABG Carboxyhemoglobin 1.5 % (0.0-5.0) 05/18/21 12:50 ABG Methemoglobin 0.4 % (0.0-1.5) 05/18/21 12:50 Oxyhemoglobin 95.2 % (95.0-99.0) 05/18/21 12:50 FiO2 40 % 02/02/22 12:50 Sodium 141 mmol/L (137-145) 05/19/21 05:23 Sodium 142 mmol/L (137-145) 05/19/21 05:23 Potassium 4.5 mmol/L (3.6-5.0) 05/19/21 05:23 Potassium 4.8 mmol/L (3.6-5.0) 05/19/21 05:23 Chloride 104.8 mmol/L (98-107) 05/19/21 05:23 Chloride 105.4 mmol/L (98-107) 05/19/21 05:23 Carbon Dioxide 24 mmol/L (22-30) 05/19/21 05:23 Carbon Dioxide 26 mmol/L (22-30) 05/19/21 05:23 Anion Gap 16 mmol/L 05/19/21 05:23 Anion Gap 16 mmol/L 05/19/21 05:23 BUN 34 mg/dL (9-20) H 05/19/21 05:23 BUN 35 mg/dL (9-20) H 05/19/21 05:23 Creatinine 2.0 mg/dL (0.8-1.3) H 05/19/21 05:23 Creatinine 2.1 mg/dL (0.8-1.3) H 05/19/21 05:23 Estimated GFR 33 ml/min 05/19/21 05:23 Estimated GFR 35 ml/min 05/19/21 05:23 BUN/Creatinine Ratio 16 % 05/19/21 05:23 BUN/Creatinine Ratio 18 % 05/19/21 05:23 Glucose 90 mg/dL (75-100) 05/19/21 05:23 Glucose 94 mg/dL (75-100) 05/19/21 05:23 POC Glucose 97 mg/dL (70-105) 05/19/21 06:29 Calcium 8.9 mg/dL (8.4-10.2) 05/19/21 05:23 Calcium 9.1 mg/dL (8.4-10.2) 05/19/21 05:23 Phosphorus 4.00 mg/dL (2.5-4.5) 05/14/21 15:44 Magnesium 2.00 mg/dL (1.7-2.3) 05/14/21 15:44 Ferritin 640.2 ng/mL (30.0-300.0) H 05/12/21 07:19 Total Bilirubin 0.60 mg/dL (0.1-1.2) 05/16/21 10:21 AST 34 units/L (5-40) 05/16/21 10:21 ALT 51 units/L (7-56) 05/16/21 10:21 Alkaline Phosphatase 74 units/L (35-129) 05/16/21 10:21 Lactate Dehydrogenase 314 units/L (91-180) H 05/12/21 07:19 Total Creatine Kinase 406 units/L (55-170) H 05/04/21 08:42 Troponin T 0.400 ng/mL (0.00-0.029) H* D 05/16/21 18:40 C-Reactive Protein 1.60 mg/dL (0.00-1.30) H 05/12/21 07:19 Total Protein 7.4 g/dL (6.3-8.2) 05/16/21 10:21 Albumin 3.1 g/dL (3.9-5) L 05/16/21 10:21 Albumin/Globulin Ratio 0.7 % 05/16/21 10:21 Triglycerides 144 mg/dL (2-149) 05/10/21 04:57 Cholesterol 140 mg/dL (50-199) 05/04/21 07:25 LDL Cholesterol Direct 89 mg/dL (50-130) 05/04/21 07:25 HDL Cholesterol 48 mg/dL (40-59) 05/04/21 07:25 Cholesterol/HDL Ratio 2.91 % 05/04/21 07:25 Procalcitonin 0.63 ng/mL (<0.15) 05/09/21 15:53 Urine Color Yellow (Yellow) 05/09/21 13:22 Urine Turbidity Turbid (Clear) 05/09/21 13:22 Urine pH 5.0 (5.0-7.0) 05/09/21 13:22 Ur Specific [place] 1.018 (1.003-1.030) 05/09/21 13:22 Urine Protein 100 mg/dl mg/dL (Negative) 05/09/21 13:22 Urine Glucose (UA) Neg mg/dL (Negative) 05/09/21 13:22 Urine Ketones Tr mg/dL (Negative) 05/09/21 13:22 Urine Blood Mod (Negative) 05/09/21 13:22 Urine Nitrite Neg (Negative) 05/09/21 13:22 Urine Bilirubin Neg (Negative) 05/09/21 13:22 Urine Urobilinogen < 2.0 mg/dL (<2.0) 05/09/21 13:22 Ur Leukocyte Esterase Mod (Negative) 05/09/21 13:22 Urine WBC (Auto) 25.0 /HPF (0.0-6.0) H 05/09/21 13:22 Urine RBC (Auto) 8.0 /HPF (0.0-6.0) 05/09/21 13:22 U Epithel Cells (Auto) < 1.0 /HPF (0-13.0) 05/09/21 13:22 Urine Bacteria (Auto) 1+ /HPF (Negative) 05/09/21 00:40 Uric Acid Crystals Few 05/09/21 00:40 Triple Phos Crystals 2+ 05/09/21 13:22 Amorphous Crystals Few 05/09/21 00:40 Urine Mucus Few /HPF 05/09/21 00:40 Urine Creatinine 100.8 mg/dL (0.1-20.0) H 05/10/21 11:03 Protein/Creatinin Ratio 0.42 05/10/21 11:03 Urine Sodium 61 mmol/L 05/05/21 09:57 Urine Total Protein 42 mg/dL (5-11.8) H 05/10/21 11:03 Urine Opiates Screen Negative 05/04/21 Unknown Urine Methadone Screen Negative 05/04/21 Unknown Ur Barbiturates Screen Negative 05/04/21 Unknown Ur Phencyclidine Scrn Negative 05/04/21 Unknown Ur Amphetamines Screen Positive 05/04/21 Unknown U Benzodiazepines Scrn Negative 05/04/21 Unknown Urine Cocaine Screen Negative 05/04/21 Unknown U Marijuana (THC) Screen Negative 05/04/21 Unknown Drugs of Abuse Note Disclamer 05/04/21 Unknown Immunofix Electrophor see below 05/05/21 03:40 AUDRA Screen Negative (Negative) 05/05/21 03:40 Proteinase 3 (PR3) Ab <1.0 AI (<1.0) 05/05/21 03:40 Myeloperoxidase Ab <1.0 AI (<1.0) 05/05/21 03:40 Complement C3 72 mg/dL (82-185) L 05/05/21 03:40 Complement C4 17 mg/dL (15-53) 05/05/21 03:40 Coronavirus (PCR) Positive (Negative) A 05/05/21 08:30 Hepatitis A IgM Ab Non-reactive (NonReactive) 05/05/21 03:40 Hep Bs Antigen Non-reactive (Negative) 05/05/21 03:40 Hep B Core IgM Ab Non-reactive (NonReactive) 05/05/21 03:40 Hepatitis C Antibody Reactive (NonReactive) A 05/05/21 03:40 Microbiology: Microbiology 05/16/21 10:31 Tracheal Aspirate Sputum Culture - Final Enterobacter Aerogenes [place]/IV: Voiding Method Indwelling Catheter Active Medications - Current Medications Current Medications: Generic Name Dose Route Start Last Admin Trade Name Freq PRN Reason Stop Dose Admin Acetaminophen 650 mg 05/04/21 12:34 05/11/21 11:24 Acetaminophen 325 Mg Tab PO 650 mg Q4H PRN Administration Pain MILD(1-3)/Fever >100.5/MARIA Acetaminophen 650 mg 05/07/21 16:00 05/11/21 16:25 Acetaminophen 650 Mg Rect Supp [place] 650 mg Q4H PRN Administration Pain, Mild (1-3) Aspirin 81 mg 05/06/21 14:00 05/18/21 10:34 Aspirin 81 Mg Tab Chew PO 81 mg QDAY RISHI Administration Atorvastatin Calcium 40 mg 05/09/21 22:00 05/18/21 21:33 Atorvastatin 40 Mg Tab FEEDTUBE 40 mg QHS RISHI Administration Chlordiazepoxide HCl 75 mg 05/11/21 15:00 05/18/21 23:50 Chlordiazepoxide 25 Mg Cap PO 75 mg Q8H RISHI Administration Dextrose 0 ml 05/09/21 10:49 05/14/21 06:55 Dextrose 10% *Hypoglycemia IV 250 ml PRN PRN Administration Hypoglycemia Famotidine 10 mg 05/17/21 10:00 05/18/21 21:32 Famotidine 10 Mg Tab FEEDTUBE 10 mg BID RISHI Administration Fentanyl 50 mcg 05/16/21 09:56 Fentanyl 100 Mcg/2 Ml Inj IV Q10MIN PRN ANALGESIA Haloperidol Lactate 5 mg 05/09/21 18:32 05/18/21 19:52 Haloperidol Lactate 5 Mg/1 Ml Inj IV 5 mg Q6H PRN Administration Agitation Heparin Sodium (Porcine) 3,000 unit 05/11/21 14:14 Heparin 10,000 Units/10 Ml Vial IV Q6H PRN Anti-Xa Assay < 0.1 units/ml Hydralazine HCl 50 mg 05/04/21 14:00 05/18/21 21:34 Hydralazine 25 Mg Tab PO 50 mg Q8HR RISHI Administration Hydrophilic Ointment 1 applic 05/05/21 15:21 Lip Therapy Vaseline TP Q2HR PRN Dry Lips Heparin Sodium/Sodium Chloride 25,000 unit in 500 mls @ 24 mls/hr 05/11/21 15:00 05/19/21 06:59 Heparin/ 0.45% Nacl-25,000 Unit/500 Ml IV 1,550 units/hr TITR RISHI 31 mls/hr Titration Protocol 1,200 UNITS/HR Fentanyl Citrate 2,000 mcg in 100 mls @ 4.082 mls/hr 05/16/21 10:00 05/18/21 17:38 Fentanyl Drip Premix IV 0 mcg/kg/hr TITR RISHI 0 mls/hr Titration Protocol 1 MCG/KG/HR Cefepime HCl 2 gm in 100 mls @ 200 mls/hr 05/18/21 18:00 05/18/21 17:27 Cefepime/Ns 2 Gm/100 Ml IV 200 mls/hr Q24H RISHI Administration Protocol Insulin Human Lispro 0 unit 05/10/21 09:40 05/12/21 16:49 Insulin Lispro 100 Unit/Ml SUB-Q 2 unit Q6HR PRN Administration Hyperglycemia Protocol Labetalol HCl 10 mg 05/15/21 10:24 Labetalol 20 Mg/4 Ml Inj IV Q4H PRN sbp> 160. Metoprolol Tartrate 50 mg 05/10/21 14:00 05/18/21 19:49 Metoprolol Tartrate 50 Mg Tab FEEDTUBE 50 mg TID RISHI Administration Multi-Ingred Cream/Lotion/Oil/Oint 1 applic 05/05/21 15:21 Mineral Oil/Petrolatum, White Ophth Oint 3.5 Gm OU Q4HR PRN Dry Eye(s) Ondansetron HCl 4 mg 05/04/21 12:34 05/04/21 21:51 Ondansetron 4 Mg/2 Ml Inj IV 4 mg Q8H PRN Administration Nausea And Vomiting Quetiapine Fumarate 200 mg 05/09/21 22:00 05/18/21 21:32 Quetiapine 200 Mg Tab PO 200 mg BID RISHI Administration Senna/Docusate Sodium 1 tab 05/05/21 22:00 05/18/21 21:32 Sennosides/Docusate Sodium 8.6/50 Mg Tab FEEDTUBE 1 tab BID RISHI Administration Sodium Chloride 10 ml 05/04/21 22:00 05/18/21 21:33 Sodium Chloride 0.9% 10 Ml Flush Syringe IV 10 ml BID RISHI Administration Sodium Chloride 10 ml 05/04/21 12:34 05/06/21 13:59 Sodium Chloride 0.9% 10 Ml Flush Syringe IV 10 ml PRN PRN Administration LINE FLUSH Sodium Chloride 10 ml 05/09/21 09:46 Sodium Chloride 0.9% 50 Ml Ivpb IV PRN PRN FLUSH Nutrition/Malnutrition Assess - Dietary Evaluation Nutrition/Malnutrition Findings: Nutrition Notes Start: 05/05/21 16:15 Freq: Status: Active Protocol: Document 05/16/21 10:32 ROSAURA (Rec: 05/16/21 10:48 ROSAURA [id number]) Nutrition Notes Initial or Follow up Reassessment Current Diagnosis Acute Kidney Injury, Hypertension,Heart Failure, Respiratory Failure Other Pertinent Diagnosis Severe COVID-19 pneu, metabolic encephalopathy, polysubstance dependence Current Diet TF - Promote at 60ml/hr Labs/Tests Reviewed Pertinent Medications Lasix, Heparin gtt Height 5 ft 7 in Weight 81.647 kg [place] Body Weight (kg) 67.27 BMI 28.1 Weight Status Overweight Subjective/Other Information Pt extubated on 05/13, however, was re-intubated this am sec to resp distress. Percent of energy/protein needs met: 75% energy 92% pro Minimum of two criteria No #1 Nutrition Diagnosis Inadequate oral intake Diagnosis Progress(for reassessment Continues documentation) Is patient on ventilator? Yes Is Patient Ambulatory and/or Out of Bed No REE-([place]-. Jeaz-confined to bed) 3530.512 Calculation Used for Recommendations [facility] Additional Notes Pro needs 1.2-2g/k-163g/ day Fluid needs 1ml/kcal Nutrition Intervention Nutrition Support: Continue Promote at 60ml/hr with 200ml water flush q4 until hypernatremia resolved. When Na lab is WNL, reduce water flush to 50ml q4h. Kcal 1,440 Protein (gm) 90 Carbohydrates (gm) 187 Fat (gm) 37 Fluid (mL) 1,208 Fiber (gm) 0 Goal #1 TF tolerance Goal #2 TF to meet at least 75% energy and pro needs Follow-Up By: 05/20/21 Additional Comments F/U: TF tolerance, Na lab/ water flushes, BG lab/need for reduced CHO formula, vent status
[2021-05-18] MEDS: HALOPERIDOL LACTATE 5 MG/1 ML INJ IV PRN ×2 (12:07→19:52)
[2021-05-18 13:10] LABS: ABG Base Excess 3.3 mmol/L (-2.0-3.0); ABG Methemoglobin 0.4 % (0.0-1.5); ABG PCO2 43.3 mm Hg; ABG PH 7.428 pH Units (7.350-7.450); ABG PO2 79.6 mm Hg (80.0-90.0)
--- NOTE | 2021-05-18 16:03 | Progress Note ---
Assessment and Plan Patient is a 56-year-old male with a past medical history of hypertension, paroxysmal SVT, medical noncompliance, smoking, substance abuse who presented to the ED with a complaint of shortness of breath and dyspnea on exertion x1 month however with significantly worsening symptoms since yesterday. NSTEMI Hypertensive Emergency COVID-19 Acute Bilateral DVT Afib YE Hepatitis C SOB Medical noncompliance Polysubstance abuse-patient tested positive for methamphetamines Echo 05/04/2021-EF 35 to 40%. Moderate concentric LVH. Moderate global hypokinesis of left ventricle. Mild mitral regurgitation. Mild pulmonary hypertension. Echocardiogram reviewed (08/27/2020): LVEF is 50 to 55%. Mild to moderate concentric LVF. Severe diastolic dysfunction is present (restrictive filling). Right ventricle is mildly hypokinetic. RVSP is 48 mmHg. No valvular abnormali ties. Plan: Patient remains in sinus rhythm Continue asa and statin Patient currently on heparin gtt for anticoagulation Continue metoprolol 50 mg p.o. 3 times daily, hydralizine Patient seen in conjunction with Dr. Gamez who agrees with this plan of care - Patient Problems (1) ARF (acute renal failure) Current Visit: Yes Status: Acute (2) Elevated d-dimer Current Visit: Yes Status: Acute (3) LFT elevation Current Visit: Yes Status: Acute (4) NSTEMI (non-ST elevated myocardial infarction) Current Visit: Yes Status: Acute (5) Polysubstance abuse Current Visit: Yes Status: Acute (6) SOB (shortness of breath) Current Visit: Yes Status: Acute (7) Hypertension Current Visit: Yes Status: Chronic (8) Noncompliance with medication regimen Current Visit: Yes Status: Chronic Subjective Date of service: 05/18/21 Principal diagnosis: AHRF; COVID-19 infection; NSTEMI; YE; HFrEF (35-40%); Polysubstance abuse Interval history: Patient remains intubated and sedated Patient sinus rhythm 60s on monitor Objective Vital Signs Temp Pulse Pulse Resp BP Pulse Ox 05/18/21 14:56 99 05/18/21 13:47 98.8 F 05/18/21 13:00 64 12 149/99 98 05/18/21 12:00 104 H 64 32 H 115/79 98 05/18/21 11:47 62 115/79 96 05/18/21 11:00 63 14 115/79 98 05/18/21 10:00 62 14 114/73 99 05/18/21 09:00 60 12 114/73 99 05/18/21 08:00 59 L 58 L 13 118/77 100 05/18/21 07:13 98.7 F 05/18/21 07:00 57 L 10 L 118/77 99 05/18/21 06:59 58 L 118/77 100 05/18/21 06:00 57 L 16 112/73 100 05/18/21 05:00 58 L 14 112/73 100 05/18/21 04:38 61 111/76 100 05/18/21 04:00 98.2 F 58 L 58 L 12 111/76 100 05/18/21 03:00 60 17 118/79 100 05/18/21 02:00 60 17 119/78 100 05/18/21 01:00 60 15 122/82 100 05/18/21 00:00 97.6 F 62 62 14 122/82 100 05/17/21 23:54 62 118/79 100 05/17/21 23:00 63 9 L 118/82 100 05/17/21 22:12 55 L 13 118/82 100 05/17/21 22:00 55 L 15 118/82 100 05/17/21 21:00 57 L 14 118/81 100 05/17/21 20:05 59 L 118/81 100 05/17/21 20:00 98.0 F 58 L 58 L 12 118/81 100 05/17/21 19:00 63 11 L 115/80 100 05/17/21 18:00 62 10 L 115/80 100 05/17/21 17:00 63 14 108/81 100 05/17/21 16:08 60 16 110/77 100 - Physical Examination General: Other (intubated and sedated) HEENT: Positive: PERRL Neck: Positive: trachea midline Cardiac: Positive: Reg Rate and Rhythm Lungs: Positive: Ventilated Respirations Neuro: Positive: Other (sedated) Abdomen: Positive: Soft Skin: Negative: Rash, Suspicious Lesions, Ulceration Extremities: Absent: edema - Labs and Meds CBC 05/17/21 05/18/21 Range/Units 16:21 04:15 WBC 16.8 H (4.5-11.0) K/mm3 RBC 3.03 L (3.65-5.03) M/mm3 Hgb 9.6 L 8.9 L (11.8-15.2) gm/dl Hct 30.3 L 28.7 L (35.5-45.6) % Plt Count 319 (140-440) K/mm3 Comprehensive Metabolic Panel 05/18/21 Range/Units 04:15 Sodium 138 D (137-145) mmol/L Potassium 4.4 (3.6-5.0) mmol/L Chloride 102.8 (98-107) mmol/L Carbon Dioxide 26 (22-30) mmol/L BUN 40 H (9-20) mg/dL Creatinine 2.1 H (0.8-1.3) mg/dL Glucose 115 H (75-100) mg/dL Calcium 8.5 (8.4-10.2) mg/dL - Imaging and Cardiology EKG: report reviewed, image reviewed Echo: report reviewed - Telemetry EKG Rhythm: Sinus Rhythm - EKG Sinus rhythms and dysrhythmias: sinus rhythm Ventricular dysrhythmias: ventricular premature com Chamber hypertrophy or enlargement: left ventricular hypertro - Allied health notes Allied health notes reviewed: nursing
--- NOTE | 2021-05-18 16:28 | Progress Note ---
Assessment and Plan Cultures: Blood culture 05/07/2021 no growth so far Blood culture 05/10/2021 no growth so far Sputum culture 05/16/2021 Enterobacter A/P: 56 yo M PMHx smoking, a fin, HTN, medication non-compliance #Severe COVID-19 pneumonia: Patient presented with a week of symptoms, chest x- ray with diffuse bilateral infiltrates, admission O2 sats decreased on room air. Inflammatory markers elevated #Acute hypoxemic respiratory failure: Likely secondary to COVID-19 infection. Currently on the vent #VAP: Cultures with Enterobacter #YE: Renally dose medications Recommendations: -Dexamethasone 6 mg IV/PO daily for 10 days -Not a candidate for remdesivir -Obtain q48-72h inflammatory markers - ferritin, Ddimer, CRP, LDH -Change Zosyn to cefepime given sensitivities from Enterobacter -Anticoagulation per hospital protocol -Proning as able Thank you for the consult, we will continue to follow. Roque Bacon MD [facility] ([facility] O: [phone] F: [phone] Subjective Date of service: 05/18/21 Principal diagnosis: AHRF; COVID-19 infection; NSTEMI; YE; HFrEF (35-40%); Polysubstance abuse Interval history: Afebrile, white count 16.8 today. Improved from yesterday. Sputum culture with Enterobacter aergenes which is intermediate to Zosyn Objective - Exam Narrative Exam: Physical exam deferred to reduce risk of transmission of COVID-19. Please refer to primary team's note. - Constitutional Vitals: Vital Signs Temp Pulse Resp BP Pulse Ox 98.8 F 74 24 140/85 95 05/18/21 13:47 05/18/21 16:00 05/18/21 16:00 05/18/21 16:00 05/18/21 16:00 Temperature -Last 24 Hours Temperature 98.8 F Temperature 98.7 F Temperature 98.2 F Temperature 97.6 F Temperature 98.0 F - Labs CBC & Chem 7: 05/18/21 04:15 05/18/21 04:15 Labs: Abnormal lab results 05/17/21 05/17/21 05/17/21 Range/Units 16:21 18:18 23:29 WBC (4.5-11.0) K/mm3 RBC (3.65-5.03) M/mm3 Hgb 9.6 L (11.8-15.2) gm/dl Hct 30.3 L (35.5-45.6) % MCV (84-94) fl MCHC (32-34) % RDW (13.2-15.2) % ABG pO2 (80.0-90.0) mm Hg ABG HCO3 (20.0-26.0) mmol/L ABG Base Excess (-2.0-3.0) mmol/L ABG Hemoglobin (14.0-18.0) gm/dl BUN (9-20) mg/dL Creatinine (0.8-1.3) mg/dL Glucose (75-100) mg/dL POC Glucose 133 H 111 H (70-105) mg/dL 05/18/21 05/18/21 05/18/21 Range/Units 04:15 04:15 05:01 WBC 16.8 H (4.5-11.0) K/mm3 RBC 3.03 L (3.65-5.03) M/mm3 Hgb 8.9 L (11.8-15.2) gm/dl Hct 28.7 L (35.5-45.6) % MCV 95 H (84-94) fl MCHC 31 L (32-34) % RDW 16.4 H (13.2-15.2) % ABG pO2 (80.0-90.0) mm Hg ABG HCO3 (20.0-26.0) mmol/L ABG Base Excess (-2.0-3.0) mmol/L ABG Hemoglobin (14.0-18.0) gm/dl BUN 40 H (9-20) mg/dL Creatinine 2.1 H (0.8-1.3) mg/dL Glucose 115 H (75-100) mg/dL POC Glucose 113 H (70-105) mg/dL 05/18/21 05/18/21 Range/Units 11:18 12:50 WBC (4.5-11.0) K/mm3 RBC (3.65-5.03) M/mm3 Hgb (11.8-15.2) gm/dl Hct (35.5-45.6) % MCV (84-94) fl MCHC (32-34) % RDW (13.2-15.2) % ABG pO2 79.6 L (80.0-90.0) mm Hg ABG HCO3 28.0 H (20.0-26.0) mmol/L ABG Base Excess 3.3 H (-2.0-3.0) mmol/L ABG Hemoglobin 6.2 L (14.0-18.0) gm/dl BUN (9-20) mg/dL Creatinine (0.8-1.3) mg/dL Glucose (75-100) mg/dL POC Glucose 129 H (70-105) mg/dL
[2021-05-18] MEDS: CEFEPIME/NS 2 GM/100 ML 2 GM/100 ML BAG IV SCH (17:27)
[2021-05-19] MEDS: FREE WATER PO SCH ×2 (02:20→08:39)
[2021-05-19 06:30] LABS: Hematocrit 31.1 % (35.5-45.6); Hemoglobin 9.9 gm/dl (11.8-15.2); Mean Corpuscular HGB Conc 32 % (32-34); Mean Corpuscular Volume 94 fl (84-94); Platelet Count 370 K/mm3 (140-440); Red Blood Count 3.31 M/mm3 (3.65-5.03); Red Cell Distribution Width 16.9 % (13.2-15.2)
[2021-05-19 06:39] LABS: Calcium 9.1 mg/dL (8.4-10.2)
[2021-05-19 06:53] LABS: Calcium 8.9 mg/dL (8.4-10.2)
[2021-05-19] MEDS: chlordiazePOXIDE 25 MG CAP PO SCH ×3 (08:55→22:42)
[2021-05-19] MEDS: METOPROLOL TARTRATE 50 MG TAB FEEDTUBE SCH ×3 (08:55→22:54)
[2021-05-19] MEDS: hydrALAZINE 25 MG TAB PO SCH ×3 (08:56→22:43)
[2021-05-19] MEDS: QUEtiapine 200 MG TAB PO SCH (09:00)
[2021-05-19] MEDS: ASPIRIN 81 MG TAB CHEW PO SCH (09:00)
[2021-05-19] MEDS: SENNOSIDES/DOCUSATE SODIUM 8.6/50 MG TAB FEEDTUBE SCH ×2 (09:00→22:54)
[2021-05-19] MEDS: FAMOTIDINE 10 MG TAB FEEDTUBE SCH (09:00)
--- NOTE | 2021-05-19 09:44 | Progress Note ---
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 UOP and lytes are stable. Creatinine is noted today * IVF prn as tolerated to maintain euvolemia, note non-oliguric urine output * hold diuresis , Na and low bp noted, hold bp meds prn * Serum sodium stable, continue free water flushes with TFs * Replete K prn * Renal ultrasound reviewed - will need follow up CT once stable * Continue antiHTN medications * Cardiology, ICU input noted * Dose medications for renal function * Avoid potential nephrotoxins * Strict I/O Subjective Principal diagnosis: AHRF; COVID-19 infection; NSTEMI; YE; HFrEF (35-40%); Polysubstance abuse Interval history: events noted Chart, vitals, labs reviewed. Remains confused Objective - Exam Narrative Exam: Direct examination deferred in setting of COVID-19 pandemic. Primary team exam reviewed in detail Objective - Vital Signs Vital signs: Vital Signs - 12hr 05/18/21 05/18/21 05/18/21 22:00 23:00 23:02 Temperature Pulse Rate 71 68 68 Pulse Rate [ From Monitor] Respiratory 16 29 H 29 H Rate Blood Pressure 136/49 106/55 106/55 O2 Sat by Pulse 98 95 98 Oximetry 05/19/21 05/19/21 05/19/21 00:00 01:00 02:00 Temperature 99.4 F Pulse Rate 71 72 76 Pulse Rate [ 74 From Monitor] Respiratory 16 30 H 32 H Rate Blood Pressure 112/61 127/67 183/84 O2 Sat by Pulse 97 96 97 Oximetry 05/19/21 05/19/21 05/19/21 03:00 03:25 04:00 Temperature 100 F H Pulse Rate 77 78 78 Pulse Rate [ 74 From Monitor] Respiratory 13 29 H 32 H Rate Blood Pressure 167/101 174/109 174/109 O2 Sat by Pulse 96 98 95 Oximetry 05/19/21 05/19/21 05/19/21 05:00 06:00 07:00 Temperature Pulse Rate 73 80 82 Pulse Rate [ From Monitor] Respiratory 14 17 18 Rate Blood Pressure 163/108 190/119 184/115 O2 Sat by Pulse 98 97 96 Oximetry 05/19/21 05/19/21 05/19/21 07:13 07:40 08:00 Temperature 99.4 F Pulse Rate 76 Pulse Rate [ 83 From Monitor] Respiratory 16 Rate Blood Pressure 168/104 O2 Sat by Pulse 97 100 Oximetry 05/19/21 05/19/21 08:55 08:56 Temperature Pulse Rate 89 89 Pulse Rate [ From Monitor] Respiratory Rate Blood Pressure 168/104 168/104 O2 Sat by Pulse Oximetry - Lab 05/19/21 05:23 05/19/21 05:23 Most recent lab results ABG pH 7.428 pH Units (7.350-7.450) 05/18/21 12:50 ABG pCO2 43.3 mm Hg 05/18/21 12:50 ABG pO2 79.6 mm Hg (80.0-90.0) L 05/18/21 12:50 ABG HCO3 28.0 mmol/L (20.0-26.0) H 05/18/21 12:50 ABG O2 Saturation 97.0 % (95.0-99.0) 05/18/21 12:50 Calcium 8.9 mg/dL (8.4-10.2) 05/19/21 05:23 Calcium 9.1 mg/dL (8.4-10.2) 05/19/21 05:23 Phosphorus 4.00 mg/dL (2.5-4.5) 05/14/21 15:44 Magnesium 2.00 mg/dL (1.7-2.3) 05/14/21 15:44 Urine Creatinine 100.8 mg/dL (0.1-20.0) H 05/10/21 11:03 Urine Sodium 61 mmol/L 05/05/21 09:57 Urine Total Protein 42 mg/dL (5-11.8) H 05/10/21 11:03 Medications & Allergies - Medications Allergies/Adverse Reactions: Allergies No Known Allergies Allergy (Verified 05/08/21 07:47) Home Medications: Home Medications Medication Instructions Recorded Confirmed Last Taken Type Cefpodoxime Proxetil 200 mg PO Q12H #10 tablet 09/11/20 Unknown Rx Famotidine [Pepcid] 20 mg PO BID #30 tablet 04/13/21 Unknown Rx Losartan [Cozaar] 100 mg PO QDAY #60 tablet 04/13/21 Unknown Rx Metoprolol Xl [Metoprolol 25 mg PO QDAY #30 tablet 04/13/21 Unknown Rx SUCCINATE ER TAB] NIFEdipine XL [Procardia Xl] 60 mg PO Q12HR #60 tablet 04/13/21 Unknown Rx hydrALAZINE [Apresoline TAB] 50 mg PO Q8HR #180 tablet 04/13/21 Unknown Rx Active Medications: Generic Name Dose Route Start Last Admin Trade Name Freq PRN Reason Stop Dose Admin Acetaminophen 650 mg 05/04/21 12:34 05/11/21 11:24 Acetaminophen 325 Mg Tab PO 650 mg Q4H PRN Administration Pain MILD(1-3)/Fever >100.5/MARIA Acetaminophen 650 mg 05/07/21 16:00 05/11/21 16:25 Acetaminophen 650 Mg Rect Supp [place] 650 mg Q4H PRN Administration Pain, Mild (1-3) Amlodipine Besylate 5 mg 05/19/21 10:00 Amlodipine 5 Mg Tab PO QDAY RISHI Aspirin 81 mg 05/06/21 14:00 05/19/21 09:00 Aspirin 81 Mg Tab Chew PO 81 mg QDAY RISHI Administration Atorvastatin Calcium 40 mg 05/09/21 22:00 05/18/21 21:33 Atorvastatin 40 Mg Tab FEEDTUBE 40 mg QHS RISHI Administration Chlordiazepoxide HCl 75 mg 05/11/21 15:00 05/19/21 08:55 Chlordiazepoxide 25 Mg Cap PO 75 mg Q8H RISHI Administration Dextrose 0 ml 05/09/21 10:49 05/14/21 06:55 Dextrose 10% *Hypoglycemia IV 250 ml PRN PRN Administration Hypoglycemia Famotidine 10 mg 05/17/21 10:00 05/19/21 09:00 Famotidine 10 Mg Tab FEEDTUBE 10 mg BID RISHI Administration Haloperidol Lactate 5 mg 05/09/21 18:32 05/18/21 19:52 Haloperidol Lactate 5 Mg/1 Ml Inj IV 5 mg Q6H PRN Administration Agitation Heparin Sodium (Porcine) 3,000 unit 05/11/21 14:14 Heparin 10,000 Units/10 Ml Vial IV Q6H PRN Anti-Xa Assay < 0.1 units/ml Hydralazine HCl 50 mg 05/04/21 14:00 05/19/21 08:56 Hydralazine 25 Mg Tab PO 50 mg Q8HR RISHI Administration Hydrophilic Ointment 1 applic 05/05/21 15:21 Lip Therapy Vaseline TP Q2HR PRN Dry Lips Heparin Sodium/Sodium Chloride 25,000 unit in 500 mls @ 24 mls/hr 05/11/21 15:00 05/19/21 06:59 Heparin/ 0.45% Nacl-25,000 Unit/500 Ml IV 1,550 units/hr TITR RISHI 31 mls/hr Titration Protocol 1,200 UNITS/HR Cefepime HCl 2 gm in 100 mls @ 200 mls/hr 05/18/21 18:00 05/18/21 17:27 Cefepime/Ns 2 Gm/100 Ml IV 200 mls/hr Q24H RISHI Administration Protocol Insulin Human Lispro 0 unit 05/10/21 09:40 05/12/21 16:49 Insulin Lispro 100 Unit/Ml SUB-Q 2 unit Q6HR PRN Administration Hyperglycemia Protocol Labetalol HCl 10 mg 05/15/21 10:24 Labetalol 20 Mg/4 Ml Inj IV Q4H PRN sbp> 160. Metoprolol Tartrate 50 mg 05/10/21 14:00 05/19/21 08:55 Metoprolol Tartrate 50 Mg Tab FEEDTUBE 50 mg TID RISHI Administration Multi-Ingred Cream/Lotion/Oil/Oint 1 applic 05/05/21 15:21 Mineral Oil/Petrolatum, White Ophth Oint 3.5 Gm OU Q4HR PRN Dry Eye(s) Ondansetron HCl 4 mg 05/04/21 12:34 05/04/21 21:51 Ondansetron 4 Mg/2 Ml Inj IV 4 mg Q8H PRN Administration Nausea And Vomiting Quetiapine Fumarate 200 mg 05/09/21 22:00 05/19/21 09:00 Quetiapine 200 Mg Tab PO 200 mg BID RISHI Administration Senna/Docusate Sodium 1 tab 05/05/21 22:00 05/19/21 09:00 Sennosides/Docusate Sodium 8.6/50 Mg Tab FEEDTUBE Not Given BID RISHI Sodium Chloride 10 ml 05/04/21 22:00 05/19/21 09:00 Sodium Chloride 0.9% 10 Ml Flush Syringe IV 10 ml BID RISHI Administration Sodium Chloride 10 ml 05/04/21 12:34 05/06/21 13:59 Sodium Chloride 0.9% 10 Ml Flush Syringe IV 10 ml PRN PRN Administration LINE FLUSH Sodium Chloride 10 ml 05/09/21 09:46 Sodium Chloride 0.9% 50 Ml Ivpb IV PRN PRN FLUSH
[2021-05-19] MEDS: amLODIPine 5 MG TAB PO SCH (10:38)
--- NOTE | 2021-05-19 10:40 | Progress Note ---
<JANUSZ PETERSEN - Last Filed: 05/19/21 16:57> Assessment and Plan Assessment and plan: This is a 56-year-old male with a nicotine abuse, A. fib, hypertension, and chronic medication noncompliance and homelessness who presented to emergency department on 05/04 with complaints of dyspnea on exertion for the past month worsening over the past 3 days, intermittent left-sided chest tightness with activity, and persistent cough without fever. Work-up in the emergency department revealed anemia, hyponatremia, elevated BUN/creatinine and transaminitis. Patient was admitted to the hospitalist service with acute kidney injury and accelerated hypertension. Hospital course to date 05/04/2021. Cardiology was considering patient for Pressurization Mechanic. However, patient with elevated creatinine therefore will hold off on cath evaluation. Nephrology consultation for acute kidney injury. Etiology likely secondary to vasomotor nephropathy/dehydration. We will start IV fluid hydration. Check renal ultra sound to rule out obstructive uropathy. We will resume home medications for the accelerated hypertension 05/05/2021. Echocardiogram reveals EF 35-40% with moderate concentric left ventricular hypertrophy. Moderate global hypokinesis of left ventricle. Mild mitral regurgitation. Mild pulmonary hypertension. Troponins are believed to be elevated in the setting of acute kidney injury. No beta-blockers due to cocaine use continue heparin and nitro drip. Continue CIWA protocol. Await urine studies 05/06/2021. Patient decompensated yesterday with worsening respiratory failure and difficulty to protect airway. Patient was breathing sonorously, and hypoxic. Patient was intubated and currently is on mechanical ventilation. Patient with AC mode ventilation rate of 20, tidal volume 450, FiO2 40% and PEEP of 6. COVID PCR testing on 05/05/2021 was found to be positive. Echocardiogram completed on this admission shows worsening EF from August 2020. Echocardiogram now reveals moderate concentric left ventricular hypertrophy with moderate global hypokinesis and EF of 35-40%. Mild pulmonary hypertension. 05/08: Continue current management, renal stable, LFTs stable and if improved randall l start on statin therapy. 05/09: Patient is febrile, will panculture, PSV today. CRP pending. Mucoid discharge noted from meatus which was sent for culture. Hypernatremia persists, free water flushes increased 05/10: PSV trial per CCM, T-max 102.3, given mildly elevated procalcitonin started on ceftriaxone 2 g every 24 for 2 days per ID. Overnight patient had atrial fibrillation which was treated with Cardizem drip and converted to sinus rhythm. Metoprolol p.o. increased to 3 times daily. 05/11: Patient still running fevers and if still febrile tomorrow will escalate to cefepime per ID as he is currently on ceftriaxone, CCM attempted PSV but patient became agitated and was switched back to pressure control. Lower extremity ultrasound shows acute DVT and started on heparin drip. Started on scheduled Librium. Patient remains with hypernatremia and elevated creatinine and on IV fluids. Free water flushes adjusted. Started on vancomycin today 05/12: Patient placed on pressure support trial without fentanyl, hypernatremia improving, hyperkalemia noted. Slight improvement to renal function. 05/13: Patient was extubated today, ID change antibiotics to Zosyn for Enterococcus, was started tapering Librium in the morning, renal function slightly improved. Possible transfer to floor tomorrow. ST evaluation for swallow ordered. 05/14: Patient became hypoglycemic overnight and started on dextrose IV fluids. Accu-Chek fingersticks have been low but on a.m. BMP patient blood glucose is 100. Other BMP pending. Feeding tube replaced due to need for enteral access and patient being severely confused. Renal functions remains the same. Upon confirmation will restart tube feedings, p.o. medications and free water flushes. 05/15: Remains confused/somnolent on my encounter. Librium taper in 24hrs per [facility] recs. Remains hypertensive. Added amlodipine 10 mg NG and labetalol prn. ST eval today but doubt he will participate. Potassium replaced. Renal function improving overall, however, hypernatremic. Inc TF FWF to 250 cc q4hr. 05/16: Respiratory distress this AM, hypoxic in 60's not protecting airway. Required intubation, patient now ICU patient. Reduce fluid to FWF only, IVF d/c off jun. CXR ordered demonstrates pulmonary edema. Lasix 40 mg IV bid ordered. Troponin elevated, continue heparin gtt. Would recommend decreasing sedating medications at this point, agree with librium taper. 05/17: Patient remains on the vent and sedated, RASS -3. Plan for possible sedat ion vacation today. D/w CCM plan to wean for possible extubation on the vent. 05/18: Tolerated 4hrs of sedation vacation yesterday, on low dose fentanyl this am. Patient is tolerating PST this am. Plan to wean off sedation and wean vent setting for possible extubation today. 05/19: s/p extubation now stable on 3L NC. Lethargic this am, will decreased Seroquel. Speech consult for swallow eval, continue enteral nutrition via NGT for now. Hypertensive throughout the night, Norvac added. Remains on heparin gtt for DVT, might need to transition to PO AC, will d/w CCM. Patient is stable for transfer to [facility] Assessment and Plan Acute hypoxic respiratory failure (worsened) -CCM consulted, appreciate recommendations -Intubated on 05/05 with 7.50 ETT at 20 over the lips in the ED and extubated 05/13 -Reintubated on 05/16; Exttubated on 05/18 -CCM consulted, appreciate recommendations -Aspiration precaution HOB above 30 -Continue O2 supplementation and wean as tolerated -Continue SPO2 monitoring for SPO2 goal above 92% Severe COVID-19 pneumonia/leukocytosis, Enterococcus in urine -Infectious disease consulted, appreciate recommendations -COVID-19 PCR positive -Continue droplet/precautions -Not a candidate for remdesivir given acute kidney injury -Dexamethasone for 10 days -Anticoagulation per hospital protocol -Trend COVID-19 from 2 markers (ferritin, D-dimer, CRP, LDH) -Continue IV Abx per ID Acute DVT -Bilateral lower extremity Doppler ultrasound shows acute DVT -On Heparin drip per protocol -Monitor for s/s of active bleeding -Trend CBC and Coags -Will D/W CCM for possible bridge to PO AC agent Acute kidney injury likely secondary to vasomotor nephropathy -Nephrology consulted, appreciate recommendations -Avoid nephrotoxic medications -Renally dose medication -Strict intake and output -FeNa indicates prerenal -Renal ultrasound completed: 1.7 hyper echoic mass within the left upper pole, Monitor for now follow-up with CT once stable Metabolic encephalopathy -Lethargic this am, has been off sedation for over 24hrs -Seroquel decreased -Continue Librium to prevent DTs -Maintain sleep-wake cycle -Monitor QTC -Avoid delirium -May need psych consult Hypertension; S/p hypertensive emergency -Cardiology on consult -Continue current antihypertensives therapy -Norvasc added for better control -Blood pressure monitoring per protocol -PRN Labetalol for SBP greater than 160 Heart failure reduced EF, cardiomyopathy, NSTEMI, paroxysmal atrial fibrillation -Continue beta-sylvia and aspirin -Resume statin therapy -Cardiology consulted, appreciate recommendations -Echo 05/04/2021-EF 35 to 40%. Moderate concentric LVH. Moderate global hypokinesis of left ventricle. Mild mitral regurgitation. Mild pulmonary hypertension. Echocardiogram reviewed (08/27/2020): LVEF is 50 to 55%. Mild to moderate concentric LVF. Severe diastolic dysfunction is present (restrictive filling). Right ventricle is mildly hypokinetic. RVSP is 48 mmHg. No valvular abn ormalities. -S/p heparin drip for 24 hours -Patient had atrial fibrillation overnight on 05/10 and was treated with a Cardizem drip Polysubstance abuse, tobacco abuse -UDS positive for amphetamines -We will need cessation counseling when appropriate Transaminitis, h/o hepatitis C -Renal ultrasound showed incidental finding of cholelithiasis -Trend LFTs -Continue supportive management Anemia -Trend CBC -Transfuse for hemoglobin less than 7 DVT/ GI prophylaxis -Heparin gtt -PPI The high probability of a clinically significant, sudden or life threatening deterioration of the [cardio/resp] system(s) required my full and direct attention, intervention and personal management. The aggregate critical care time was [60] minutes. This time is in addition to time spent performing reported procedures but includes the following: [x] Data Review and interpretation [x] Patient assessment and monitoring of vital signs [x] Documentation [x] Medication orders and management Disposition Plan: ICU Total Time Spent with Patient (Minutes): 60 History Interval history: Patient seen and examined at the bedside. s/p extubation now stable on 3L NC. Lethargic this am, still arousable, following simple commands. Remains on Heparin gtt Hospitalist Physical - Constitutional Vitals: Temp Pulse Resp BP Pulse Ox 99.4 F 78 43 H 145/86 96 05/19/21 07:13 05/19/21 10:38 05/19/21 10:00 05/19/21 10:38 05/19/21 10:00 General appearance: Present: no acute distress - EENT Eyes: Present: PERRL ENT: hearing intact - Neck Neck: Present: normal ROM - Respiratory Respiratory effort: normal Respiratory: bilateral: diminished - Cardiovascular Rhythm: regular Heart Sounds: Present: S1 & S2 - Extremities Extremities: no ischemia, pulses intact, pulses symmetrical Extremity abnormal: edema - Peripheral Assessment Generalized Edema Type: Non-pitting Edema Degree: 1+ Capillary Refill: < 3 seconds Skin Temperature: Warm Peripheral Pulses: within normal limits - Abdominal General gastrointestinal: soft, non-distended, normal bowel sounds - Integumentary Integumentary: Present: warm, dry - Psychiatric Psychiatric: cooperative, other (Lethargic) - Neurologic Neurologic: moves all extremities, other (Lethargic) - Allied Health Allied health notes reviewed: nursing HEART Score - HEART Score EKG: Non-specific Age: 45-65 Risk factors: 1-2 risk factors Troponin: Troponin T 0.400 ng/mL (0.00-0.029) H* D 05/16/21 18:40 Troponin: 1-3x normal limit - Critical Actions Critical Actions: 4-6 pts:12-16.6% risk of adverse cardiac event. Should be admitted Results - Labs CBC & Chem 7: 05/19/21 05:23 05/19/21 05:23 Labs: Laboratory Last Values WBC 18.5 K/mm3 (4.5-11.0) H 05/19/21 05:23 RBC 3.31 M/mm3 (3.65-5.03) L 05/19/21 05:23 Hgb 9.9 gm/dl (11.8-15.2) L 05/19/21 05:23 Hct 31.1 % (35.5-45.6) L 05/19/21 05:23 MCV 94 fl (84-94) 05/19/21 05:23 MCH 30 pg (28-32) 05/19/21 05:23 MCHC 32 % (32-34) 05/19/21 05:23 RDW 16.9 % (13.2-15.2) H 05/19/21 05:23 Plt Count 370 K/mm3 (140-440) 05/19/21 05:23 Lymph % (Auto) Shipping Receiving Clerk 05/16/21 10:21 [place] % (Auto) Shipping Receiving Clerk 05/16/21 10:21 Eos % (Auto) Shipping Receiving Clerk 05/16/21 10:21 Baso % (Auto) Shipping Receiving Clerk 05/16/21 10:21 Lymph # (Auto) Shipping Receiving Clerk 05/16/21 10:21 [place] # (Auto) Shipping Receiving Clerk 05/16/21 10:21 Eos # (Auto) Shipping Receiving Clerk 05/16/21 10:21 Baso # (Auto) Shipping Receiving Clerk 05/16/21 10:21 Add Manual Diff Complete 05/16/21 10:21 Total Counted 100 05/16/21 10:21 Seg Neutrophils % Shipping Receiving Clerk 05/16/21 10:21 Seg Neuts % (Manual) 83.0 % (40.0-70.0) H 05/16/21 10:21 Band Neutrophils % 2.0 % 05/16/21 10:21 Lymphocytes % (Manual) 4.0 % (13.4-35.0) L 05/16/21 10:21 Reactive Lymphs % (Man) 0 % 05/16/21 10:21 Monocytes % (Manual) 9.0 % (0.0-7.3) H 05/16/21 10:21 Eosinophils % (Manual) 0 % (0.0-4.3) 05/16/21 10:21 Basophils % (Manual) 0 % (0.0-1.8) 05/16/21 10:21 Metamyelocytes % 0 % 05/16/21 10:21 Myelocytes % 2.0 % 05/16/21 10:21 Promyelocytes % 0 % 05/16/21 10:21 Blast Cells % 0 % 05/16/21 10:21 Nucleated RBC % Not Reportable 05/16/21 10:21 Seg Neutrophils # Shipping Receiving Clerk 05/16/21 10:21 Seg Neutrophils # Man 22.9 K/mm3 (1.8-7.7) H 05/16/21 10:21 Band Neutrophils # 0.6 K/mm3 05/16/21 10:21 Lymphocytes # (Manual) 1.1 K/mm3 (1.2-5.4) L 05/16/21 10:21 Abs React Lymphs (Man) 0.0 K/mm3 05/16/21 10:21 Monocytes # (Manual) 2.5 K/mm3 (0.0-0.8) H 05/16/21 10:21 Eosinophils # (Manual) 0.0 K/mm3 (0.0-0.4) 05/16/21 10:21 Basophils # (Manual) 0.0 K/mm3 (0.0-0.1) 05/16/21 10:21 Metamyelocytes # 0.0 K/mm3 05/16/21 10:21 Myelocytes # 0.6 K/mm3 05/16/21 10:21 Promyelocytes # 0.0 K/mm3 05/16/21 10:21 Blast Cells # 0.0 K/mm3 05/16/21 10:21 WBC Morphology Not Reportable 05/16/21 10:21 Hypersegmented Neuts Not Reportable 05/16/21 10:21 Hyposegmented Neuts Not Reportable 05/16/21 10:21 Hypogranular Neuts Not Reportable 05/16/21 10:21 Smudge Cells Not Reportable 05/16/21 10:21 Toxic Granulation Not Reportable 05/16/21 10:21 Toxic Vacuolation Not Reportable 05/16/21 10:21 Dohle Bodies Not Reportable 05/16/21 10:21 Pelger-Huet Anomaly Not Reportable 05/16/21 10:21 Jesse Rods Not Reportable 05/16/21 10:21 Platelet Estimate Consistent w auto 05/16/21 10:21 Clumped Platelets Few 05/16/21 10:21 Plt Clumps, EDTA Not Reportable 05/16/21 10:21 Large Platelets Not Reportable 05/16/21 10:21 Giant Platelets Not Reportable 05/16/21 10:21 Platelet Satelliting Not Reportable 05/16/21 10:21 Plt Morphology Comment Not Reportable 05/16/21 10:21 RBC Morphology Not Reportable 05/16/21 10:21 Dimorphic RBCs Not Reportable 05/16/21 10:21 Polychromasia Not Reportable 05/16/21 10:21 Hypochromasia Not Reportable 05/16/21 10:21 Poikilocytosis Not Reportable 05/16/21 10:21 Anisocytosis 1+ 05/16/21 10:21 Microcytosis Not Reportable 05/16/21 10:21 Macrocytosis Few 05/16/21 10:21 Spherocytes Not Reportable 05/16/21 10:21 Pappenheimer Bodies Not Reportable 05/16/21 10:21 Sickle Cells Not Reportable 05/16/21 10:21 Target Cells Not Reportable 05/16/21 10:21 Tear Drop Cells Not Reportable 05/16/21 10:21 Ovalocytes Not Reportable 05/16/21 10:21 Helmet Cells Not Reportable 05/16/21 10:21 Murphy-Tat Momoli Bodies Not Reportable 05/16/21 10:21 Stout Rings Not Reportable 05/16/21 10:21 [place] Cells Not Reportable 05/16/21 10:21 Bite Cells Not Reportable 05/16/21 10:21 Crenated Cell Not Reportable 05/16/21 10:21 Elliptocytes Not Reportable 05/16/21 10:21 Acanthocytes (Spur) Not Reportable 05/16/21 10:21 Rouleaux Not Reportable 05/16/21 10:21 Hemoglobin C Crystals Not Reportable 05/16/21 10:21 Schistocytes Not Reportable 05/16/21 10:21 Malaria parasites Not Reportable 05/16/21 10:21 Tomi Bodies Not Reportable 05/16/21 10:21 Hem Pathologist Commnt No 05/16/21 10:21 PT 15.6 Sec. (12.2-14.9) H 05/11/21 14:43 INR 1.12 (0.87-1.13) 05/11/21 14:43 APTT 30.3 Sec. (24.2-36.6) 05/11/21 14:43 D-Dimer 2730.61 ng/mlDDU (0-234) H 05/12/21 07:19 Heparin Anti-Xa Level 0.47 U.I./ml (0.3-0.7) 05/19/21 05:23 ABG pH 7.428 pH Units (7.350-7.450) 05/18/21 12:50 ABG pCO2 43.3 mm Hg 05/18/21 12:50 ABG pO2 79.6 mm Hg (80.0-90.0) L 05/18/21 12:50 ABG HCO3 28.0 mmol/L (20.0-26.0) H 05/18/21 12:50 ABG O2 Saturation 97.0 % (95.0-99.0) 05/18/21 12:50 ABG O2 Content 8.4 (0.0-44) 05/18/21 12:50 ABG Base Excess 3.3 mmol/L (-2.0-3.0) H 05/18/21 12:50 ABG Hemoglobin 6.2 gm/dl (14.0-18.0) L 05/18/21 12:50 ABG Carboxyhemoglobin 1.5 % (0.0-5.0) 05/18/21 12:50 ABG Methemoglobin 0.4 % (0.0-1.5) 05/18/21 12:50 Oxyhemoglobin 95.2 % (95.0-99.0) 05/18/21 12:50 FiO2 40 % 05/18/21 12:50 Sodium 141 mmol/L (137-145) 05/19/21 05:23 Sodium 142 mmol/L (137-145) 05/19/21 05:23 Potassium 4.5 mmol/L (3.6-5.0) 05/19/21 05:23 Potassium 4.8 mmol/L (3.6-5.0) 05/19/21 05:23 Chloride 104.8 mmol/L (98-107) 05/19/21 05:23 Chloride 105.4 mmol/L (98-107) 05/19/21 05:23 Carbon Dioxide 24 mmol/L (22-30) 05/19/21 05:23 Carbon Dioxide 26 mmol/L (22-30) 05/19/21 05:23 Anion Gap 16 mmol/L 05/19/21 05:23 Anion Gap 16 mmol/L 05/19/21 05:23 BUN 34 mg/dL (9-20) H 05/19/21 05:23 BUN 35 mg/dL (9-20) H 05/19/21 05:23 Creatinine 2.0 mg/dL (0.8-1.3) H 05/19/21 05:23 Creatinine 2.1 mg/dL (0.8-1.3) H 05/19/21 05:23 Estimated GFR 33 ml/min 05/19/21 05:23 Estimated GFR 35 ml/min 05/19/21 05:23 BUN/Creatinine Ratio 16 % 05/19/21 05:23 BUN/Creatinine Ratio 18 % 05/19/21 05:23 Glucose 90 mg/dL (75-100) 05/19/21 05:23 Glucose 94 mg/dL (75-100) 05/19/21 05:23 POC Glucose 97 mg/dL (70-105) 05/19/21 06:29 Calcium 8.9 mg/dL (8.4-10.2) 05/19/21 05:23 Calcium 9.1 mg/dL (8.4-10.2) 05/19/21 05:23 Phosphorus 4.00 mg/dL (2.5-4.5) 05/14/21 15:44 Magnesium 2.00 mg/dL (1.7-2.3) 05/14/21 15:44 Ferritin 640.2 ng/mL (30.0-300.0) H 05/12/21 07:19 Total Bilirubin 0.60 mg/dL (0.1-1.2) 05/16/21 10:21 AST 34 units/L (5-40) 05/16/21 10:21 ALT 51 units/L (7-56) 05/16/21 10:21 Alkaline Phosphatase 74 units/L (35-129) 05/16/21 10:21 Lactate Dehydrogenase 314 units/L (91-180) H 05/12/21 07:19 Total Creatine Kinase 406 units/L (55-170) H 05/04/21 08:42 Troponin T 0.400 ng/mL (0.00-0.029) H* D 05/16/21 18:40 C-Reactive Protein 1.60 mg/dL (0.00-1.30) H 05/12/21 07:19 Total Protein 7.4 g/dL (6.3-8.2) 05/16/21 10:21 Albumin 3.1 g/dL (3.9-5) L 05/16/21 10:21 Albumin/Globulin Ratio 0.7 % 05/16/21 10:21 Triglycerides 144 mg/dL (2-149) 05/10/21 04:57 Cholesterol 140 mg/dL (50-199) 05/04/21 07:25 LDL Cholesterol Direct 89 mg/dL (50-130) 05/04/21 07:25 HDL Cholesterol 48 mg/dL (40-59) 05/04/21 07:25 Cholesterol/HDL Ratio 2.91 % 05/04/21 07:25 Procalcitonin 0.63 ng/mL (<0.15) 05/09/21 15:53 Urine Color Yellow (Yellow) 05/09/21 13:22 Urine Turbidity Turbid (Clear) 05/09/21 13:22 Urine pH 5.0 (5.0-7.0) 05/09/21 13:22 Ur Specific [place] 1.018 (1.003-1.030) 05/09/21 13:22 Urine Protein 100 mg/dl mg/dL (Negative) 05/09/21 13:22 Urine Glucose (UA) Neg mg/dL (Negative) 05/09/21 13:22 Urine Ketones Tr mg/dL (Negative) 05/09/21 13:22 Urine Blood Mod (Negative) 05/09/21 13:22 Urine Nitrite Neg (Negative) 05/09/21 13:22 Urine Bilirubin Neg (Negative) 05/09/21 13:22 Urine Urobilinogen < 2.0 mg/dL (<2.0) 05/09/21 13:22 Ur Leukocyte Esterase Mod (Negative) 05/09/21 13:22 Urine WBC (Auto) 25.0 /HPF (0.0-6.0) H 05/09/21 13:22 Urine RBC (Auto) 8.0 /HPF (0.0-6.0) 05/09/21 13:22 U Epithel Cells (Auto) < 1.0 /HPF (0-13.0) 05/09/21 13:22 Urine Bacteria (Auto) 1+ /HPF (Negative) 05/09/21 00:40 Uric Acid Crystals Few 05/09/21 00:40 Triple Phos Crystals 2+ 05/09/21 13:22 Amorphous Crystals Few 05/09/21 00:40 Urine Mucus Few /HPF 05/09/21 00:40 Urine Creatinine 100.8 mg/dL (0.1-20.0) H 05/10/21 11:03 Protein/Creatinin Ratio 0.42 05/10/21 11:03 Urine Sodium 61 mmol/L 05/05/21 09:57 Urine Total Protein 42 mg/dL (5-11.8) H 05/10/21 11:03 Urine Opiates Screen Negative 05/04/21 Unknown Urine Methadone Screen Negative 05/04/21 Unknown Ur Barbiturates Screen Negative 05/04/21 Unknown Ur Phencyclidine Scrn Negative 05/04/21 Unknown Ur Amphetamines Screen Positive 05/04/21 Unknown U Benzodiazepines Scrn Negative 05/04/21 Unknown Urine Cocaine Screen Negative 05/04/21 Unknown U Marijuana (THC) Screen Negative 05/04/21 Unknown Drugs of Abuse Note Disclamer 05/04/21 Unknown Immunofix Electrophor see below 05/05/21 03:40 AUDRA Screen Negative (Negative) 05/05/21 03:40 Proteinase 3 (PR3) Ab <1.0 AI (<1.0) 05/05/21 03:40 Myeloperoxidase Ab <1.0 AI (<1.0) 05/05/21 03:40 Complement C3 72 mg/dL (82-185) L 05/05/21 03:40 Complement C4 17 mg/dL (15-53) 05/05/21 03:40 Coronavirus (PCR) Positive (Negative) A 05/05/21 08:30 Hepatitis A IgM Ab Non-reactive (NonReactive) 05/05/21 03:40 Hep Bs Antigen Non-reactive (Negative) 05/05/21 03:40 Hep B Core IgM Ab Non-reactive (NonReactive) 05/05/21 03:40 Hepatitis C Antibody Reactive (NonReactive) A 05/05/21 03:40 Microbiology: Microbiology 05/16/21 10:31 Tracheal Aspirate Sputum Culture - Final Enterobacter Aerogenes Merino/IV: Voiding Method Indwelling Catheter Active Medications - Current Medications Current Medications: Generic Name Dose Route Start Last Admin Trade Name Freq PRN Reason Stop Dose Admin Acetaminophen 650 mg 05/04/21 12:34 05/11/21 11:24 Acetaminophen 325 Mg Tab PO 650 mg Q4H PRN Administration Pain MILD(1-3)/Fever >100.5/MARIA Acetaminophen 650 mg 05/07/21 16:00 05/11/21 16:25 Acetaminophen [address] 650 mg Q4H PRN Administration Pain, Mild (1-3) Amlodipine Besylate 5 mg 05/19/21 11:00 05/19/21 10:38 Amlodipine 5 Mg Tab PO 5 mg QDAY RISHI Administration Aspirin 81 mg 05/06/21 14:00 05/19/21 09:00 Aspirin 81 Mg Tab Chew PO 81 mg QDAY RISHI Administration Atorvastatin Calcium 40 mg 05/09/21 22:00 05/18/21 21:33 Atorvastatin 40 Mg Tab FEEDTUBE 40 mg QHS RISHI Administration Chlordiazepoxide HCl 75 mg 05/11/21 15:00 05/19/21 08:55 Chlordiazepoxide 25 Mg Cap PO 75 mg Q8H RISHI Administration Dextrose 0 ml 05/09/21 10:49 05/14/21 06:55 Dextrose 10% *Hypoglycemia IV 250 ml PRN PRN Administration Hypoglycemia Famotidine 10 mg 05/17/21 10:00 05/19/21 09:00 Famotidine 10 Mg Tab FEEDTUBE 10 mg BID RISHI Administration Haloperidol Lactate 5 mg 05/09/21 18:32 05/18/21 19:52 Haloperidol Lactate 5 Mg/1 Ml Inj IV 5 mg Q6H PRN Administration Agitation Heparin Sodium (Porcine) 3,000 unit 05/11/21 14:14 Heparin 10,000 Units/10 Ml Vial IV Q6H PRN Anti-Xa Assay < 0.1 units/ml Hydralazine HCl 50 mg 05/04/21 14:00 05/19/21 08:56 Hydralazine 25 Mg Tab PO 50 mg Q8HR IRSHI Administration Hydrophilic Ointment 1 applic 05/05/21 15:21 Lip Therapy Vaseline TP Q2HR PRN Dry Lips Heparin Sodium/Sodium Chloride 25,000 unit in 500 mls @ 24 mls/hr 05/11/21 15:00 05/19/21 06:59 Heparin/ 0.45% Nacl-25,000 Unit/500 Ml IV 1,550 units/hr TITR RISHI 31 mls/hr Titration Protocol 1,200 UNITS/HR Cefepime HCl 2 gm in 100 mls @ 200 mls/hr 05/18/21 18:00 05/18/21 17:27 Cefepime/Ns 2 Gm/100 Ml IV 200 mls/hr Q24H RISHI Administration Protocol Insulin Human Lispro 0 unit 05/10/21 09:40 05/12/21 16:49 Insulin Lispro 100 Unit/Ml SUB-Q 2 unit Q6HR PRN Administration Hyperglycemia Protocol Labetalol HCl 10 mg 05/15/21 10:24 Labetalol 20 Mg/4 Ml Inj IV Q4H PRN sbp> 160. Metoprolol Tartrate 50 mg 05/10/21 14:00 05/19/21 08:55 Metoprolol Tartrate 50 Mg Tab FEEDTUBE 50 mg TID RISHI Administration Multi-Ingred Cream/Lotion/Oil/Oint 1 applic 05/05/21 15:21 Mineral Oil/Petrolatum, White Ophth Oint 3.5 Gm OU Q4HR PRN Dry Eye(s) Ondansetron HCl 4 mg 05/04/21 12:34 05/04/21 21:51 Ondansetron 4 Mg/2 Ml Inj IV 4 mg Q8H PRN Administration Nausea And Vomiting Quetiapine Fumarate 200 mg 05/09/21 22:00 05/19/21 09:00 Quetiapine 200 Mg Tab PO 200 mg BID RISHI Administration Senna/Docusate Sodium 1 tab 05/05/21 22:00 05/19/21 09:00 Sennosides/Docusate Sodium 8.6/50 Mg Tab FEEDTUBE Not Given BID RISHI Sodium Chloride 10 ml 05/04/21 22:00 05/19/21 09:00 Sodium Chloride 0.9% 10 Ml Flush Syringe IV 10 ml BID RISHI Administration Sodium Chloride 10 ml 05/04/21 12:34 05/06/21 13:59 Sodium Chloride 0.9% 10 Ml Flush Syringe IV 10 ml PRN PRN Administration LINE FLUSH Sodium Chloride 10 ml 05/09/21 09:46 Sodium Chloride 0.9% 50 Ml Ivpb IV PRN PRN FLUSH Nutrition/Malnutrition Assess - Dietary Evaluation Nutrition/Malnutrition Findings: Nutrition Notes Start: 05/05/21 16:15 Freq: Status: Active Protocol: Document 05/16/21 10:32 ROSAURA (Rec: 05/16/21 10:48 ROSAURA [id number]) Nutrition Notes Initial or Follow up Reassessment Current Diagnosis Acute Kidney Injury, Hypertension,Heart Failure, Respiratory Failure Other Pertinent Diagnosis Severe COVID-19 pneu, metabolic encephalopathy, polysubstance dependence Current Diet TF - Promote at 60ml/hr Labs/Tests Reviewed Pertinent Medications Lasix, Heparin gtt Height 5 ft 7 in Weight 81.647 kg [place] Body Weight (kg) 67.27 BMI 28.1 Weight Status Overweight Subjective/Other Information Pt extubated on 05/13, however, was re-intubated this am sec to resp distress. Percent of energy/protein needs met: 75% energy 92% pro Minimum of two criteria No #1 Nutrition Diagnosis Inadequate oral intake Diagnosis Progress(for reassessment Continues documentation) Is patient on ventilator? Yes Is Patient Ambulatory and/or Out of Bed No REE-([facility]-confined to bed) [phone] Calculation Used for Recommendations Bernard Connell Additional Notes Pro needs 1.2-2g/k-163g/ day Fluid needs 1ml/kcal Nutrition Intervention Nutrition Support: Continue Promote at 60ml/hr with 200ml water flush q4 until hypernatremia resolved. When Na lab is WNL, reduce water flush to 50ml q4h. Kcal 1,440 Protein (gm) 90 Carbohydrates (gm) 187 Fat (gm) 37 Fluid (mL) 1,208 Fiber (gm) 0 Goal #1 TF tolerance Goal #2 TF to meet at least 75% energy and pro needs Follow-Up By: 05/20/21 Additional Comments F/U: TF tolerance, Na lab/ water flushes, BG lab/need for reduced CHO formula, vent status <VIKRAM SAENZ - Last Filed: 05/20/21 07:40> Assessment and Plan Assessment and plan: I saw and evaluated the patient. I agree with the findings and the plan of care as documented in the Nurse Practitioner's~note, with the following corrections and additions. Hospitalist Physical - Constitutional Vitals: Temp Pulse Resp BP Pulse Ox 98.0 F 86 49 H 144/105 95 05/20/21 00:00 05/20/21 07:01 05/20/21 07:01 05/20/21 07:01 05/20/21 07:01 HEART Score - HEART Score Troponin: Troponin T 0.400 ng/mL (0.00-0.029) H* D 05/16/21 18:40 Results - Labs CBC & Chem 7: 05/20/21 05:14 05/20/21 05:14 Labs: Laboratory Last Values WBC 19.7 K/mm3 (4.5-11.0) H 05/20/21 05:14 RBC 3.19 M/mm3 (3.65-5.03) L 05/20/21 05:14 Hgb 9.5 gm/dl (11.8-15.2) L 05/20/21 05:14 Hct 29.9 % (35.5-45.6) L 05/20/21 05:14 MCV 94 fl (84-94) 05/20/21 05:14 MCH 30 pg (28-32) 05/20/21 05:14 MCHC 32 % (32-34) 05/20/21 05:14 RDW 17.3 % (13.2-15.2) H 05/20/21 05:14 Plt Count 410 K/mm3 (140-440) 05/20/21 05:14 Lymph % (Auto) Shipping Receiving Clerk 05/16/21 10:21 [place] % (Auto) Shipping Receiving Clerk 05/16/21 10:21 Eos % (Auto) Shipping Receiving Clerk 05/16/21 10:21 Baso % (Auto) Shipping Receiving Clerk 05/16/21 10:21 Lymph # (Auto) Shipping Receiving Clerk 05/16/21 10:21 [place] # (Auto) Shipping Receiving Clerk 05/16/21 10:21 Eos # (Auto) Shipping Receiving Clerk 05/16/21 10:21 Baso # (Auto) Shipping Receiving Clerk 05/16/21 10:21 Add Manual Diff Complete 05/16/21 10:21 Total Counted 100 05/16/21 10:21 Seg Neutrophils % Shipping Receiving Clerk 05/16/21 10:21 Seg Neuts % (Manual) 83.0 % (40.0-70.0) H 05/16/21 10:21 Band Neutrophils % 2.0 % 05/16/21 10:21 Lymphocytes % (Manual) 4.0 % (13.4-35.0) L 05/16/21 10:21 Reactive Lymphs % (Man) 0 % 05/16/21 10:21 Monocytes % (Manual) 9.0 % (0.0-7.3) H 05/16/21 10:21 Eosinophils % (Manual) 0 % (0.0-4.3) 05/16/21 10:21 Basophils % (Manual) 0 % (0.0-1.8) 05/16/21 10:21 Metamyelocytes % 0 % 05/16/21 10:21 Myelocytes % 2.0 % 05/16/21 10:21 Promyelocytes % 0 % 05/16/21 10:21 Blast Cells % 0 % 05/16/21 10:21 Nucleated RBC % Not Reportable 05/16/21 10:21 Seg Neutrophils # Shipping Receiving Clerk 05/16/21 10:21 Seg Neutrophils # Man 22.9 K/mm3 (1.8-7.7) H 05/16/21 10:21 Band Neutrophils # 0.6 K/mm3 05/16/21 10:21 Lymphocytes # (Manual) 1.1 K/mm3 (1.2-5.4) L 05/16/21 10:21 Abs React Lymphs (Man) 0.0 K/mm3 05/16/21 10:21 Monocytes # (Manual) 2.5 K/mm3 (0.0-0.8) H 05/16/21 10:21 Eosinophils # (Manual) 0.0 K/mm3 (0.0-0.4) 05/16/21 10:21 Basophils # (Manual) 0.0 K/mm3 (0.0-0.1) 05/16/21 10:21 Metamyelocytes # 0.0 K/mm3 05/16/21 10:21 Myelocytes # 0.6 K/mm3 05/16/21 10:21 Promyelocytes # 0.0 K/mm3 05/16/21 10:21 Blast Cells # 0.0 K/mm3 05/16/21 10:21 WBC Morphology Not Reportable 05/16/21 10:21 Hypersegmented Neuts Not Reportable 05/16/21 10:21 Hyposegmented Neuts Not Reportable 05/16/21 10:21 Hypogranular Neuts Not Reportable 05/16/21 10:21 Smudge Cells Not Reportable 05/16/21 10:21 Toxic Granulation Not Reportable 05/16/21 10:21 Toxic Vacuolation Not Reportable 05/16/21 10:21 Dohle Bodies Not Reportable 05/16/21 10:21 Pelger-Huet Anomaly Not Reportable 05/16/21 10:21 Jesse Rods Not Reportable 05/16/21 10:21 Platelet Estimate Consistent w auto 05/16/21 10:21 Clumped Platelets Few 05/16/21 10:21 Plt Clumps, EDTA Not Reportable 05/16/21 10:21 Large Platelets Not Reportable 05/16/21 10:21 Giant Platelets Not Reportable 05/16/21 10:21 Platelet Satelliting Not Reportable 05/16/21 10:21 Plt Morphology Comment Not Reportable 05/16/21 10:21 RBC Morphology Not Reportable 05/16/21 10:21 Dimorphic RBCs Not Reportable 05/16/21 10:21 Polychromasia Not Reportable 05/16/21 10:21 Hypochromasia Not Reportable 05/16/21 10:21 Poikilocytosis Not Reportable 05/16/21 10:21 Anisocytosis 1+ 05/16/21 10:21 Microcytosis Not Reportable 05/16/21 10:21 Macrocytosis Few 05/16/21 10:21 Spherocytes Not Reportable 05/16/21 10:21 Pappenheimer Bodies Not Reportable 05/16/21 10:21 Sickle Cells Not Reportable 05/16/21 10:21 Target Cells Not Reportable 05/16/21 10:21 Tear Drop Cells Not Reportable 05/16/21 10:21 Ovalocytes Not Reportable 05/16/21 10:21 Helmet Cells Not Reportable 05/16/21 10:21 Murphy-Tat Momoli Bodies Not Reportable 05/16/21 10:21 Stout Rings Not Reportable 05/16/21 10:21 [place] Cells Not Reportable 05/16/21 10:21 Bite Cells Not Reportable 05/16/21 10:21 Crenated Cell Not Reportable 05/16/21 10:21 Elliptocytes Not Reportable 05/16/21 10:21 Acanthocytes (Spur) Not Reportable 05/16/21 10:21 Rouleaux Not Reportable 05/16/21 10:21 Hemoglobin C Crystals Not Reportable 05/16/21 10:21 Schistocytes Not Reportable 05/16/21 10:21 Malaria parasites Not Reportable 05/16/21 10:21 Tomi Bodies Not Reportable 05/16/21 10:21 Hem Pathologist Commnt No 05/16/21 10:21 PT 13.6 Sec. (12.2-14.9) 05/19/21 19:36 INR 0.94 (0.87-1.13) 05/19/21 19:36 APTT 72.5 Sec. (24.2-36.6) H* 05/19/21 19:36 D-Dimer 2730.61 ng/mlDDU (0-234) H 05/12/21 07:19 Heparin Anti-Xa Level 0.47 U.I./ml (0.3-0.7) 05/19/21 05:23 ABG pH 7.428 pH Units (7.350-7.450) 05/18/21 12:50 ABG pCO2 43.3 mm Hg 05/18/21 12:50 ABG pO2 79.6 mm Hg (80.0-90.0) L 05/18/21 12:50 ABG HCO3 28.0 mmol/L (20.0-26.0) H 05/18/21 12:50 ABG O2 Saturation 97.0 % (95.0-99.0) 05/18/21 12:50 ABG O2 Content 8.4 (0.0-44) 05/18/21 12:50 ABG Base Excess 3.3 mmol/L (-2.0-3.0) H 05/18/21 12:50 ABG Hemoglobin 6.2 gm/dl (14.0-18.0) L 05/18/21 12:50 ABG Carboxyhemoglobin 1.5 % (0.0-5.0) 05/18/21 12:50 ABG Methemoglobin 0.4 % (0.0-1.5) 05/18/21 12:50 Oxyhemoglobin 95.2 % (95.0-99.0) 05/18/21 12:50 FiO2 40 % 05/18/21 12:50 Sodium 137 mmol/L (137-145) 05/20/21 05:14 Potassium 4.3 mmol/L (3.6-5.0) 05/20/21 05:14 Chloride 100.7 mmol/L (98-107) 05/20/21 05:14 Carbon Dioxide 25 mmol/L (22-30) 05/20/21 05:14 Anion Gap 16 mmol/L 05/20/21 05:14 BUN 31 mg/dL (9-20) H 05/20/21 05:14 Creatinine 2.1 mg/dL (0.8-1.3) H 05/20/21 05:14 Estimated GFR 33 ml/min 05/20/21 05:14 BUN/Creatinine Ratio 15 % 05/20/21 05:14 Glucose 130 mg/dL (75-100) H 05/20/21 05:14 POC Glucose 120 mg/dL (70-105) H 05/20/21 06:12 Calcium 8.9 mg/dL (8.4-10.2) 05/20/21 05:14 Phosphorus 4.00 mg/dL (2.5-4.5) 05/14/21 15:44 Magnesium 2.00 mg/dL (1.7-2.3) 05/14/21 15:44 Ferritin 640.2 ng/mL (30.0-300.0) H 05/12/21 07:19 Total Bilirubin 0.60 mg/dL (0.1-1.2) 05/16/21 10:21 AST 34 units/L (5-40) 05/16/21 10:21 ALT 51 units/L (7-56) 05/16/21 10:21 Alkaline Phosphatase 74 units/L (35-129) 05/16/21 10:21 Lactate Dehydrogenase 314 units/L (91-180) H 05/12/21 07:19 Total Creatine Kinase 406 units/L (55-170) H 05/04/21 08:42 Troponin T 0.400 ng/mL (0.00-0.029) H* D 05/16/21 18:40 C-Reactive Protein 1.60 mg/dL (0.00-1.30) H 05/12/21 07:19 Total Protein 7.4 g/dL (6.3-8.2) 05/16/21 10:21 Albumin 3.1 g/dL (3.9-5) L 05/16/21 10:21 Albumin/Globulin Ratio 0.7 % 05/16/21 10:21 Triglycerides 144 mg/dL (2-149) 05/10/21 04:57 Cholesterol 140 mg/dL (50-199) 05/04/21 07:25 LDL Cholesterol Direct 89 mg/dL (50-130) 05/04/21 07:25 HDL Cholesterol 48 mg/dL (40-59) 05/04/21 07:25 Cholesterol/HDL Ratio 2.91 % 05/04/21 07:25 Procalcitonin 0.63 ng/mL (<0.15) 05/09/21 15:53 Urine Color Yellow (Yellow) 05/09/21 13:22 Urine Turbidity Turbid (Clear) 05/09/21 13:22 Urine pH 5.0 (5.0-7.0) 05/09/21 13:22 Ur Specific [place] 1.018 (1.003-1.030) 05/09/21 13:22 Urine Protein 100 mg/dl mg/dL (Negative) 05/09/21 13:22 Urine Glucose (UA) Neg mg/dL (Negative) 05/09/21 13:22 Urine Ketones Tr mg/dL (Negative) 05/09/21 13:22 Urine Blood Mod (Negative) 05/09/21 13:22 Urine Nitrite Neg (Negative) 05/09/21 13:22 Urine Bilirubin Neg (Negative) 05/09/21 13:22 Urine Urobilinogen < 2.0 mg/dL (<2.0) 05/09/21 13:22 Ur Leukocyte Esterase Mod (Negative) 05/09/21 13:22 Urine WBC (Auto) 25.0 /HPF (0.0-6.0) H 05/09/21 13:22 Urine RBC (Auto) 8.0 /HPF (0.0-6.0) 05/09/21 13:22 U Epithel Cells (Auto) < 1.0 /HPF (0-13.0) 05/09/21 13:22 Urine Bacteria (Auto) 1+ /HPF (Negative) 05/09/21 00:40 Uric Acid Crystals Few 05/09/21 00:40 Triple Phos Crystals 2+ 05/09/21 13:22 Amorphous Crystals Few 05/09/21 00:40 Urine Mucus Few /HPF 05/09/21 00:40 Urine Creatinine 100.8 mg/dL (0.1-20.0) H 05/10/21 11:03 Protein/Creatinin Ratio 0.42 05/10/21 11:03 Urine Sodium 61 mmol/L 05/05/21 09:57 Urine Total Protein 42 mg/dL (5-11.8) H 05/10/21 11:03 Urine Opiates Screen Negative 05/04/21 Unknown Urine Methadone Screen Negative 05/04/21 Unknown Ur Barbiturates Screen Negative 05/04/21 Unknown Ur Phencyclidine Scrn Negative 05/04/21 Unknown Ur Amphetamines Screen Positive 05/04/21 Unknown U Benzodiazepines Scrn Negative 05/04/21 Unknown Urine Cocaine Screen Negative 05/04/21 Unknown U Marijuana (THC) Screen Negative 05/04/21 Unknown Drugs of Abuse Note Disclamer 05/04/21 Unknown Immunofix Electrophor see below 05/05/21 03:40 AUDRA Screen Negative (Negative) 05/05/21 03:40 Proteinase 3 (PR3) Ab <1.0 AI (<1.0) 05/05/21 03:40 Myeloperoxidase Ab <1.0 AI (<1.0) 05/05/21 03:40 Complement C3 72 mg/dL (82-185) L 05/05/21 03:40 Complement C4 17 mg/dL (15-53) 05/05/21 03:40 Coronavirus (PCR) Positive (Negative) A 05/05/21 08:30 Hepatitis A IgM Ab Non-reactive (NonReactive) 05/05/21 03:40 Hep Bs Antigen Non-reactive (Negative) 05/05/21 03:40 Hep B Core IgM Ab Non-reactive (NonReactive) 05/05/21 03:40 Hepatitis C Antibody Reactive (NonReactive) A 05/05/21 03:40 Merino/IV: Voiding Method Indwelling Catheter Active Medications - Current Medications Current Medications: Generic Name Dose Route Start Last Admin Trade Name Freq PRN Reason Stop Dose Admin Acetaminophen 650 mg 05/04/21 12:34 05/20/21 04:42 Acetaminophen 325 Mg Tab PO 650 mg Q4H PRN Administration Pain MILD(1-3)/Fever >100.5/MARIA Acetaminophen 650 mg 05/07/21 16:00 05/11/21 16:25 Acetaminophen [address] 650 mg Q4H PRN Administration Pain, Mild (1-3) Amlodipine Besylate 5 mg 05/19/21 11:00 05/19/21 10:38 Amlodipine 5 Mg Tab PO 5 mg QDAY RISHI Administration Apixaban 2.5 mg 05/19/21 22:00 05/19/21 22:42 Apixaban 2.5 Mg Tab PO 2.5 mg Q12HR RISHI Administration Protocol Aspirin 81 mg 05/06/21 14:00 05/19/21 09:00 Aspirin 81 Mg Tab Chew PO 81 mg QDAY RISHI Administration Atorvastatin Calcium 40 mg 05/09/21 22:00 05/19/21 22:42 Atorvastatin 40 Mg Tab FEEDTUBE 40 mg QHS RISHI Administration Chlordiazepoxide HCl 50 mg 05/19/21 22:00 05/19/21 22:42 Chlordiazepoxide 25 Mg Cap PO 50 mg BID RISHI Administration Dextrose 0 ml 05/09/21 10:49 05/14/21 06:55 Dextrose 10% *Hypoglycemia IV 250 ml PRN PRN Administration Hypoglycemia Famotidine 10 mg 05/17/21 10:00 05/20/21 03:23 Famotidine 10 Mg Tab FEEDTUBE Not Given BID RISHI Haloperidol Lactate 5 mg 05/09/21 18:32 05/18/21 19:52 Haloperidol Lactate 5 Mg/1 Ml Inj IV 5 mg Q6H PRN Administration Agitation Hydralazine HCl 50 mg 05/04/21 14:00 05/20/21 05:14 Hydralazine 25 Mg Tab PO 50 mg Q8HR RISHI Administration Hydrophilic Ointment 1 applic 05/05/21 15:21 Lip Therapy Vaseline TP Q2HR PRN Dry Lips Cefepime HCl 2 gm in 100 mls @ 200 mls/hr 05/18/21 18:00 05/19/21 17:37 Cefepime/Ns 2 Gm/100 Ml IV 200 mls/hr Q24H RISHI Administration Protocol Insulin Human Lispro 0 unit 05/10/21 09:40 05/12/21 16:49 Insulin Lispro 100 Unit/Ml SUB-Q 2 unit Q6HR PRN Administration Hyperglycemia Protocol Labetalol HCl 10 mg 05/15/21 10:24 Labetalol 20 Mg/4 Ml Inj IV Q4H PRN sbp> 160. Metoprolol Tartrate 50 mg 05/10/21 14:00 05/19/21 22:54 Metoprolol Tartrate 50 Mg Tab FEEDTUBE 50 mg TID RISHI Administration Multi-Ingred Cream/Lotion/Oil/Oint 1 applic 05/05/21 15:21 Mineral Oil/Petrolatum, White Ophth Oint 3.5 Gm OU Q4HR PRN Dry Eye(s) Ondansetron HCl 4 mg 05/04/21 12:34 05/04/21 21:51 Ondansetron 4 Mg/2 Ml Inj IV 4 mg Q8H PRN Administration Nausea And Vomiting Quetiapine Fumarate 100 mg 05/19/21 22:00 05/19/21 22:42 Quetiapine 100 Mg Tab PO 100 mg BID RISHI Administration Senna/Docusate Sodium 1 tab 05/05/21 22:00 05/19/21 22:54 Sennosides/Docusate Sodium 8.6/50 Mg Tab FEEDTUBE Not Given BID RISHI Sodium Chloride 10 ml 05/04/21 22:00 05/19/21 22:54 Sodium Chloride 0.9% 10 Ml Flush Syringe IV 10 ml BID RISHI Administration Sodium Chloride 10 ml 05/04/21 12:34 05/06/21 13:59 Sodium Chloride 0.9% 10 Ml Flush Syringe IV 10 ml PRN PRN Administration LINE FLUSH Sodium Chloride 10 ml 05/09/21 09:46 Sodium Chloride 0.9% 50 Ml Ivpb IV PRN PRN FLUSH Nutrition/Malnutrition Assess - Dietary Evaluation Nutrition/Malnutrition Findings: Nutrition Notes Start: 05/05/21 16:15 Freq: Status: Active Protocol: Document 05/16/21 10:32 ROSAURA (Rec: 05/16/21 10:48 [facility] [id number]) Nutrition Notes Initial or Follow up Reassessment Current Diagnosis Acute Kidney Injury, Hypertension,Heart Failure, Respiratory Failure Other Pertinent Diagnosis Severe COVID-19 pneu, metabolic encephalopathy, polysubstance dependence Current Diet TF - Promote at 60ml/hr Labs/Tests Reviewed Pertinent Medications Lasix, Heparin gtt Height 5 ft 7 in Weight 81.647 kg [place] Body Weight (kg) 67.27 BMI 28.1 Weight Status Overweight Subjective/Other Information Pt extubated on 05/13, however, was re-intubated this am sec to resp distress. Percent of energy/protein needs met: 75% energy 92% pro Minimum of two criteria No #1 Nutrition Diagnosis Inadequate oral intake Diagnosis Progress(for reassessment Continues documentation) Is patient on ventilator? Yes Is Patient Ambulatory and/or Out of Bed No REE-([facility]-confined to bed) 4480.216 Calculation Used for Recommendations [facility] Additional Notes Pro needs 1.2-2g/k-163g/ day Fluid needs 1ml/kcal Nutrition Intervention Nutrition Support: Continue Promote at 60ml/hr with 200ml water flush q4 until hypernatremia resolved. When Na lab is WNL, reduce water flush to 50ml q4h. Kcal 1,440 Protein (gm) 90 Carbohydrates (gm) 187 Fat (gm) 37 Fluid (mL) 1,208 Fiber (gm) 0 Goal #1 TF tolerance Goal #2 TF to meet at least 75% energy and pro needs Follow-Up By: 05/20/21 Additional Comments F/U: TF tolerance, Na lab/ water flushes, BG lab/need for reduced CHO formula, vent status
[2021-05-19] MEDS: ACETAMINOPHEN 325 MG TAB PO PRN ×2 (11:47→22:43)
--- NOTE | 2021-05-19 13:32 | Progress Note ---
Assessment and Plan Cultures: Blood culture 05/07/2021 no growth so far Blood culture 05/10/2021 no growth so far Sputum culture 05/16/2021 Enterobacter A/P: 56 yo M PMHx smoking, a fin, HTN, medication non-compliance #Severe COVID-19 pneumonia: Patient presented with a week of symptoms, chest x- ray with diffuse bilateral infiltrates, admission O2 sats decreased on room air. Inflammatory markers elevated #Acute hypoxemic respiratory failure: Likely secondary to COVID-19 infection. Currently on the vent #VAP: Cultures with Enterobacter #YE: Renally dose medications Recommendations: -Dexamethasone 6 mg IV/PO daily for 10 days -Not a candidate for remdesivir -Obtain q48-72h inflammatory markers - ferritin, Ddimer, CRP, LDH -Continue cefepime given sensitivities from Enterobacter; planned 8 days for VAP -Anticoagulation per hospital protocol -Proning as able Thank you for the consult, we will continue to follow. Roque Bacon MD [facility] O: [phone] F: [phone] Subjective Date of service: 05/19/21 Principal diagnosis: NSTEMI Interval history: Febrile to 101.5, white count slightly increased today. Objective - Exam Narrative Exam: Physical exam deferred to reduce risk of transmission of COVID-19. Please refer to primary team's note. - Constitutional Vitals: Vital Signs Temp Pulse Resp BP Pulse Ox 101.6 F H 81 35 H 134/86 93 05/19/21 11:47 05/19/21 13:00 05/19/21 13:00 05/19/21 13:00 05/19/21 13:00 Temperature -Last 24 Hours Temperature 101.6 F Temperature 99.4 F Temperature 100 F Temperature 99.4 F Temperature 98.7 F Temperature 97.7 F Temperature 98.8 F - Labs CBC & Chem 7: 05/19/21 05:23 05/19/21 05:23 Labs: Abnormal lab results 05/19/21 05/19/21 05/19/21 Range/Units 05:23 05:23 05:23 WBC 18.5 H (4.5-11.0) K/mm3 RBC 3.31 L (3.65-5.03) M/mm3 Hgb 9.9 L (11.8-15.2) gm/dl Hct 31.1 L (35.5-45.6) % RDW 16.9 H (13.2-15.2) % BUN 35 H 34 H (9-20) mg/dL Creatinine 2.0 H 2.1 H (0.8-1.3) mg/dL POC Glucose (70-105) mg/dL 05/19/21 Range/Units 11:24 WBC (4.5-11.0) K/mm3 RBC (3.65-5.03) M/mm3 Hgb (11.8-15.2) gm/dl Hct (35.5-45.6) % RDW (13.2-15.2) % BUN (9-20) mg/dL Creatinine (0.8-1.3) mg/dL POC Glucose 111 H (70-105) mg/dL
--- NOTE | 2021-05-19 14:04 | Progress Note ---
Assessment and Plan Acute hypoxic resp failure on MVS COVID positive NSTEMI Acute kidney injury Cardiomyopathy EF 35-40% History of hepatitis C Elevated D-dimer. Low probability for PE seen on VQ scan Tobacco abuse Polysubstance abusepatient with positive methamphetamines and has a history of cocaine use Anemia - continue BIPAP scheduled qhs with prn daytime use - continue to use CIWA protocol drugs for sedation - continue care as below otherwise; - continue to follow electrolytes / I's & O's re: Azotemia - continue IV Heparin re: VTE (Transition to oral agent soon) - continue to wean supplemental oxygen for target O2 sat's > 90% acutely - aspiration precautions - continue bronchodilators with pulmonary hygiene per RT - wean per pulmonary driven protocols otherwise - avoid nephrotoxins, renally dose all medications - AB's per ID recommendations - continue accuchecks with glycemic control per SSI (While critically ill target blood glucose of 140-180 mg/dL; avoid hypoglycemia) - sedation prn for target RASS 0 to -1 - continue to avoid benzodiazepine's, reduce the possibility of delirium - prn analgesia per CPOT score - Maintenance of sleep-wake cycle, avoid delirium - continue enteral nutritional support at goal rate as tolerated - G.I. & VTE prophylaxis - PT/OT/ROM exercises - continue mobility protocols for pressure ulcer prophylaxis - Monitor hemodynamics closely - continue other care per attending / other consultants - discharge planning ongoing concurrently COVID SPECIFIC INTERVENTIONS - Remdesivir not administered secondary to renal failure - continue systemic steroids for severe COVID-19 infection empirically (Dexamethasone) - follow repeat COVID tests results - zinc and vitamin C supplementation - Monitor inflammatory markers per facility protocol - ferritin, Ddimer, CRP - therapeutic anticoagulation per system Protocol based on d-dimer and clinical considerations (on therapeutic heparin for NSTEMI) - Continue contact and airborne isolation .... Re-evaluate in am & prn CONDITION: CRITICAL PROGNOSIS: GUARDED CODE STATUS: FULL CODE The high probability of a clinically significant, sudden or life-threatening deterioration of the [respiratory, cardiovascular & neurologic] system(s) required my full and direct attention, intervention and personal management. The aggregate critical care time was [32] minutes without overlap. Time includes spent on; [x] Data Review and interpretation [x] Patient assessment and monitoring of vital signs [x] Documentation [x] Medication orders and management Subjective Date of service: 05/19/21 Principal diagnosis: AHRF; COVID-19 infection; NSTEMI; YE; HFrEF (35-40%); Polysubstance abuse Interval history: Patient is seen today for: Acute hypoxemic Resp failure; COVID-19 infection; NSTEMI; YE; HFrEF (35-40%); Polysubstance abuse; Anemia Seen and examined at bedside; 24hour events reviewed; nursing and respiratory care staff consulted; no adverse overnight events reported to me; resting in bed; tolerated BIPAP well overnight; was lethargic this am and sedation / anxiolytics reduced; Objective Vital Signs - 12hr 05/19/21 05/19/21 05/19/21 03:00 03:25 04:00 Temperature 100 F H Pulse Rate 77 78 78 Pulse Rate [ 74 From Monitor] Respiratory 13 29 H 32 H Rate Blood Pressure 167/101 174/109 174/109 O2 Sat by Pulse 96 98 95 Oximetry 05/19/21 05/19/21 05/19/21 05:00 06:00 07:00 Temperature Pulse Rate 73 80 82 Pulse Rate [ From Monitor] Respiratory 14 17 18 Rate Blood Pressure 163/108 190/119 184/115 O2 Sat by Pulse 98 97 96 Oximetry 05/19/21 05/19/21 05/19/21 07:13 07:40 08:00 Temperature 99.4 F Pulse Rate 76 Pulse Rate [ 83 From Monitor] Respiratory 16 Rate Blood Pressure 168/104 O2 Sat by Pulse 97 100 Oximetry 05/19/21 05/19/21 05/19/21 08:55 08:56 09:00 Temperature Pulse Rate 89 89 92 H Pulse Rate [ From Monitor] Respiratory 54 H Rate Blood Pressure 168/104 168/104 168/104 O2 Sat by Pulse 97 Oximetry 05/19/21 05/19/21 05/19/21 10:00 10:38 11:00 Temperature Pulse Rate 77 78 81 Pulse Rate [ From Monitor] Respiratory 43 H 43 H Rate Blood Pressure 145/86 145/86 138/93 O2 Sat by Pulse 96 Oximetry 05/19/21 05/19/21 05/19/21 11:47 12:00 13:00 Temperature 101.6 F H Pulse Rate 82 81 Pulse Rate [ 81 From Monitor] Respiratory 31 H 35 H Rate Blood Pressure 131/101 134/86 O2 Sat by Pulse 94 93 Oximetry Constitutional: no acute distress, other (orally intuabted, sedated) Eyes: non-icteric ENT: oropharynx moist Neck: supple, no lymphadenopathy, no JVD Effort: normal Ascultation: Bilateral: diminished breath sounds, rhonchi Percussion: Bilateral: not dull Cardiovascular: irregular rhythm, other (S1,S2) Gastrointestinal: normoactive bowel sounds, soft, non-tender, non-distended Integumentary: normal Extremities: no cyanosis, no edema, pulses normal Neurologic: non-focal exam (grossly), unable to assess (sedated) Psychiatric: other CBC and BMP: 05/21/21 03:12 05/21/21 03:12 ABG, PT/INR, D-dimer: ABG ABG pH 7.428 pH Units (7.350-7.450) 05/18/21 12:50 ABG pCO2 43.3 mm Hg 05/18/21 12:50 ABG pO2 79.6 mm Hg (80.0-90.0) L 05/18/21 12:50 ABG O2 Saturation 97.0 % (95.0-99.0) 05/18/21 12:50 PT/INR, D-dimer PT 15.6 Sec. (12.2-14.9) H 05/11/21 14:43 INR 1.12 (0.87-1.13) 05/11/21 14:43 D-Dimer 2730.61 ng/mlDDU (0-234) H 05/12/21 07:19 Abnormal lab findings: Abnormal Labs 05/04/21 05/04/21 05/04/21 07:25 07:25 07:25 WBC 12.9 H RBC 3.04 L Hgb 9.5 L Hct 28.4 L MCV MCHC RDW 15.4 H Lymph % (Auto) 11.4 L Wolfe % (Auto) 10.1 H Lymph # (Auto) Wolfe # (Auto) 1.3 H Seg Neutrophils % 78.0 H Seg Neuts % (Manual) Lymphocytes % (Manual) Monocytes % (Manual) Seg Neutrophils # 10.0 H Seg Neutrophils # Man Lymphocytes # (Manual) Monocytes # (Manual) PT 15.1 H D-Dimer Heparin Anti-Xa Level ABG pH ABG pO2 ABG HCO3 ABG O2 Saturation ABG Base Excess ABG Hemoglobin Sodium 135 L Potassium Chloride Carbon Dioxide BUN 65 H Creatinine 3.4 H Glucose 118 H POC Glucose Calcium Ferritin Total Bilirubin 1.50 H AST 519 H ALT 475 H Lactate Dehydrogenase Total Creatine Kinase Troponin T 1.300 H* C-Reactive Protein Albumin Urine WBC (Auto) Urine Creatinine Urine Total Protein Complement C3 Coronavirus (PCR) Hepatitis C Antibody 05/04/21 05/04/21 05/04/21 07:25 08:42 08:42 WBC RBC Hgb Hct MCV MCHC RDW Lymph % (Auto) Wolfe % (Auto) Lymph # (Auto) Wolfe # (Auto) Seg Neutrophils % Seg Neuts % (Manual) Lymphocytes % (Manual) Monocytes % (Manual) Seg Neutrophils # Seg Neutrophils # Man Lymphocytes # (Manual) Monocytes # (Manual) PT D-Dimer 579.49 H Heparin Anti-Xa Level ABG pH ABG pO2 ABG HCO3 ABG O2 Saturation ABG Base Excess ABG Hemoglobin Sodium Potassium Chloride Carbon Dioxide BUN Creatinine Glucose POC Glucose Calcium Ferritin Total Bilirubin AST ALT Lactate Dehydrogenase Total Creatine Kinase 406 H Troponin T 1.230 H* C-Reactive Protein Albumin Urine WBC (Auto) Urine Creatinine Urine Total Protein Complement C3 Coronavirus (PCR) Hepatitis C Antibody 05/04/21 05/04/21 05/04/21 10:13 13:34 18:14 WBC RBC Hgb 8.8 L Hct 26.6 L MCV MCHC RDW Lymph % (Auto) Wolfe % (Auto) Lymph # (Auto) Wolfe # (Auto) Seg Neutrophils % Seg Neuts % (Manual) Lymphocytes % (Manual) Monocytes % (Manual) Seg Neutrophils # Seg Neutrophils # Man Lymphocytes # (Manual) Monocytes # (Manual) PT D-Dimer Heparin Anti-Xa Level < 0.10 L ABG pH ABG pO2 ABG HCO3 ABG O2 Saturation ABG Base Excess ABG Hemoglobin Sodium Potassium Chloride Carbon Dioxide BUN Creatinine Glucose POC Glucose Calcium Ferritin Total Bilirubin AST ALT Lactate Dehydrogenase Total Creatine Kinase Troponin T 1.400 H* C-Reactive Protein Albumin Urine WBC (Auto) Urine Creatinine Urine Total Protein Complement C3 Coronavirus (PCR) Hepatitis C Antibody 05/05/21 05/05/21 05/05/21 03:40 03:40 03:40 WBC RBC Hgb Hct MCV MCHC RDW Lymph % (Auto) Wolfe % (Auto) Lymph # (Auto) Wolfe # (Auto) Seg Neutrophils % Seg Neuts % (Manual) Lymphocytes % (Manual) Monocytes % (Manual) Seg Neutrophils # Seg Neutrophils # Man Lymphocytes # (Manual) Monocytes # (Manual) PT D-Dimer Heparin Anti-Xa Level 0.11 L ABG pH ABG pO2 ABG HCO3 ABG O2 Saturation ABG Base Excess ABG Hemoglobin Sodium Potassium 3.3 L Chloride Carbon Dioxide BUN 59 H Creatinine 2.6 H Glucose 139 H POC Glucose Calcium Ferritin Total Bilirubin AST ALT Lactate Dehydrogenase Total Creatine Kinase Troponin T C-Reactive Protein Albumin Urine WBC (Auto) Urine Creatinine Urine Total Protein Complement C3 Coronavirus (PCR) Hepatitis C Antibody Reactive A 05/05/21 05/05/21 05/05/21 03:40 08:30 09:57 WBC RBC Hgb Hct MCV MCHC RDW Lymph % (Auto) Wolfe % (Auto) Lymph # (Auto) Wolfe # (Auto) Seg Neutrophils % Seg Neuts % (Manual) Lymphocytes % (Manual) Monocytes % (Manual) Seg Neutrophils # Seg Neutrophils # Man Lymphocytes # (Manual) Monocytes # (Manual) PT D-Dimer Heparin Anti-Xa Level ABG pH ABG pO2 ABG HCO3 ABG O2 Saturation ABG Base Excess ABG Hemoglobin Sodium Potassium Chloride Carbon Dioxide BUN Creatinine Glucose POC Glucose Calcium Ferritin Total Bilirubin AST ALT Lactate Dehydrogenase Total Creatine Kinase Troponin T C-Reactive Protein Albumin Urine WBC (Auto) Urine Creatinine 100.8 H Urine Total Protein Complement C3 72 L Coronavirus (PCR) Positive A Hepatitis C Antibody 05/05/21 05/05/21 05/05/21 11:28 17:00 19:51 WBC RBC Hgb Hct MCV MCHC RDW Lymph % (Auto) Wolfe % (Auto) Lymph # (Auto) Wolfe # (Auto) Seg Neutrophils % Seg Neuts % (Manual) Lymphocytes % (Manual) Monocytes % (Manual) Seg Neutrophils # Seg Neutrophils # Man Lymphocytes # (Manual) Monocytes # (Manual) PT D-Dimer Heparin Anti-Xa Level 0.10 L 0.22 L ABG pH 7.304 L ABG pO2 140.8 H ABG HCO3 ABG O2 Saturation ABG Base Excess -2.1 L ABG Hemoglobin 10.2 L Sodium Potassium Chloride Carbon Dioxide BUN Creatinine Glucose POC Glucose Calcium Ferritin Total Bilirubin AST ALT Lactate Dehydrogenase Total Creatine Kinase Troponin T C-Reactive Protein Albumin Urine WBC (Auto) Urine Creatinine Urine Total Protein Complement C3 Coronavirus (PCR) Hepatitis C Antibody 05/06/21 05/06/21 05/06/21 03:47 06:15 17:53 WBC RBC Hgb 9.0 L Hct 27.8 L MCV MCHC RDW Lymph % (Auto) Wolfe % (Auto) Lymph # (Auto) Wolfe # (Auto) Seg Neutrophils % Seg Neuts % (Manual) Lymphocytes % (Manual) Monocytes % (Manual) Seg Neutrophils # Seg Neutrophils # Man Lymphocytes # (Manual) Monocytes # (Manual) PT D-Dimer Heparin Anti-Xa Level 0.10 L ABG pH ABG pO2 143.5 H ABG HCO3 ABG O2 Saturation ABG Base Excess -2.4 L ABG Hemoglobin 6.9 L Sodium Potassium Chloride Carbon Dioxide BUN Creatinine Glucose POC Glucose Calcium Ferritin Total Bilirubin AST ALT Lactate Dehydrogenase Total Creatine Kinase Troponin T C-Reactive Protein Albumin Urine WBC (Auto) Urine Creatinine Urine Total Protein Complement C3 Coronavirus (PCR) Hepatitis C Antibody 05/07/21 05/07/21 05/07/21 00:07 03:22 03:45 WBC RBC Hgb Hct MCV MCHC RDW Lymph % (Auto) Wolfe % (Auto) Lymph # (Auto) Wolfe # (Auto) Seg Neutrophils % Seg Neuts % (Manual) Lymphocytes % (Manual) Monocytes % (Manual) Seg Neutrophils # Seg Neutrophils # Man Lymphocytes # (Manual) Monocytes # (Manual) PT D-Dimer Heparin Anti-Xa Level < 0.10 L ABG pH ABG pO2 104.3 H ABG HCO3 ABG O2 Saturation ABG Base Excess -2.6 L ABG Hemoglobin 9.1 L Sodium Potassium Chloride 107.1 H Carbon Dioxide 20 L BUN 56 H Creatinine 2.9 H Glucose POC Glucose Calcium Ferritin Total Bilirubin AST ALT Lactate Dehydrogenase Total Creatine Kinase Troponin T C-Reactive Protein Albumin Urine WBC (Auto) Urine Creatinine Urine Total Protein Complement C3 Coronavirus (PCR) Hepatitis C Antibody 05/07/21 05/07/21 05/07/21 07:44 16:28 22:41 WBC RBC Hgb Hct MCV MCHC RDW Lymph % (Auto) Wolfe % (Auto) Lymph # (Auto) Wolfe # (Auto) Seg Neutrophils % Seg Neuts % (Manual) Lymphocytes % (Manual) Monocytes % (Manual) Seg Neutrophils # Seg Neutrophils # Man Lymphocytes # (Manual) Monocytes # (Manual) PT D-Dimer Heparin Anti-Xa Level < 0.10 L 0.10 L < 0.10 L ABG pH ABG pO2 ABG HCO3 ABG O2 Saturation ABG Base Excess ABG Hemoglobin Sodium Potassium Chloride Carbon Dioxide BUN Creatinine Glucose POC Glucose Calcium Ferritin Total Bilirubin AST ALT Lactate Dehydrogenase Total Creatine Kinase Troponin T C-Reactive Protein Albumin Urine WBC (Auto) Urine Creatinine Urine Total Protein Complement C3 Coronavirus (PCR) Hepatitis C Antibody 05/08/21 05/08/21 05/08/21 03:25 04:34 07:30 WBC 12.4 H RBC 3.02 L Hgb 9.5 L Hct 29.2 L MCV 97 H MCHC RDW 16.7 H Lymph % (Auto) 8.1 L Wolfe % (Auto) 11.0 H Lymph # (Auto) 1.0 L Wolfe # (Auto) 1.4 H Seg Neutrophils % 80.1 H Seg Neuts % (Manual) Lymphocytes % (Manual) Monocytes % (Manual) Seg Neutrophils # 9.9 H Seg Neutrophils # Man Lymphocytes # (Manual) Monocytes # (Manual) PT D-Dimer Heparin Anti-Xa Level ABG pH ABG pO2 139.0 H ABG HCO3 ABG O2 Saturation ABG Base Excess ABG Hemoglobin 8.8 L Sodium Potassium Chloride 110.5 H Carbon Dioxide BUN 59 H Creatinine 2.8 H Glucose 103 H POC Glucose Calcium Ferritin Total Bilirubin AST ALT 327 H Lactate Dehydrogenase Total Creatine Kinase Troponin T C-Reactive Protein Albumin 3.1 L Urine WBC (Auto) Urine Creatinine Urine Total Protein Complement C3 Coronavirus (PCR) Hepatitis C Antibody 05/09/21 05/09/21 05/09/21 04:10 04:20 04:20 WBC 11.7 H RBC 2.79 L Hgb 8.7 L Hct 26.5 L MCV 95 H MCHC RDW 16.2 H Lymph % (Auto) Wolfe % (Auto) Lymph # (Auto) Wolfe # (Auto) Seg Neutrophils % Seg Neuts % (Manual) Lymphocytes % (Manual) Monocytes % (Manual) Seg Neutrophils # Seg Neutrophils # Man Lymphocytes # (Manual) Monocytes # (Manual) PT D-Dimer Heparin Anti-Xa Level ABG pH ABG pO2 161.6 H ABG HCO3 ABG O2 Saturation ABG Base Excess ABG Hemoglobin 8.3 L Sodium 151 H Potassium Chloride 114.5 H Carbon Dioxide 21 L BUN 57 H Creatinine 2.4 H Glucose POC Glucose Calcium Ferritin Total Bilirubin AST ALT 210 H Lactate Dehydrogenase Total Creatine Kinase Troponin T C-Reactive Protein Albumin 2.9 L Urine WBC (Auto) Urine Creatinine Urine Total Protein Complement C3 Coronavirus (PCR) Hepatitis C Antibody 05/09/21 05/09/21 05/09/21 09:48 09:48 13:22 WBC 11.6 H RBC 3.00 L Hgb 9.0 L Hct 28.4 L MCV MCHC RDW 15.9 H Lymph % (Auto) 5.9 L Wolfe % (Auto) 8.9 H Lymph # (Auto) 0.7 L Wolfe # (Auto) 1.0 H Seg Neutrophils % 84.3 H Seg Neuts % (Manual) Lymphocytes % (Manual) Monocytes % (Manual) Seg Neutrophils # 9.8 H Seg Neutrophils # Man Lymphocytes # (Manual) Monocytes # (Manual) PT D-Dimer Heparin Anti-Xa Level ABG pH ABG pO2 ABG HCO3 ABG O2 Saturation ABG Base Excess ABG Hemoglobin Sodium Potassium Chloride Carbon Dioxide BUN Creatinine Glucose POC Glucose Calcium Ferritin Total Bilirubin AST ALT Lactate Dehydrogenase Total Creatine Kinase Troponin T C-Reactive Protein 8.70 H Albumin Urine WBC (Auto) 25.0 H Urine Creatinine Urine Total Protein Complement C3 Coronavirus (PCR) Hepatitis C Antibody 05/09/21 05/09/21 05/10/21 15:20 18:16 04:57 WBC RBC 2.87 L Hgb 8.8 L Hct 27.0 L MCV MCHC RDW 15.9 H Lymph % (Auto) Wolfe % (Auto) Lymph # (Auto) Wolfe # (Auto) Seg Neutrophils % Seg Neuts % (Manual) Lymphocytes % (Manual) Monocytes % (Manual) Seg Neutrophils # Seg Neutrophils # Man Lymphocytes # (Manual) Monocytes # (Manual) PT D-Dimer Heparin Anti-Xa Level ABG pH ABG pO2 102.0 H ABG HCO3 ABG O2 Saturation ABG Base Excess -2.8 L ABG Hemoglobin 9.0 L Sodium Potassium Chloride Carbon Dioxide BUN Creatinine Glucose POC Glucose 130 H Calcium Ferritin Total Bilirubin AST ALT Lactate Dehydrogenase Total Creatine Kinase Troponin T C-Reactive Protein Albumin Urine WBC (Auto) Urine Creatinine Urine Total Protein Complement C3 Coronavirus (PCR) Hepatitis C Antibody 05/10/21 05/10/21 05/10/21 04:57 04:57 04:57 WBC RBC Hgb Hct MCV MCHC RDW Lymph % (Auto) Wolfe % (Auto) Lymph # (Auto) Wolfe # (Auto) Seg Neutrophils % Seg Neuts % (Manual) Lymphocytes % (Manual) Monocytes % (Manual) Seg Neutrophils # Seg Neutrophils # Man Lymphocytes # (Manual) Monocytes # (Manual) PT D-Dimer 1546.78 H Heparin Anti-Xa Level ABG pH ABG pO2 ABG HCO3 ABG O2 Saturation ABG Base Excess ABG Hemoglobin Sodium 148 H Potassium Chloride 114.9 H Carbon Dioxide 21 L BUN 57 H Creatinine 2.3 H Glucose 157 H POC Glucose Calcium Ferritin 888.2 H Total Bilirubin AST ALT Lactate Dehydrogenase 289 H Total Creatine Kinase Troponin T C-Reactive Protein 6.80 H Albumin Urine WBC (Auto) Urine Creatinine Urine Total Protein Complement C3 Coronavirus (PCR) Hepatitis C Antibody 05/10/21 05/10/21 05/10/21 05:09 08:04 11:03 WBC RBC Hgb Hct MCV MCHC RDW Lymph % (Auto) Wolfe % (Auto) Lymph # (Auto) Wolfe # (Auto) Seg Neutrophils % Seg Neuts % (Manual) Lymphocytes % (Manual) Monocytes % (Manual) Seg Neutrophils # Seg Neutrophils # Man Lymphocytes # (Manual) Monocytes # (Manual) PT D-Dimer Heparin Anti-Xa Level ABG pH 7.473 H ABG pO2 114.6 H ABG HCO3 ABG O2 Saturation ABG Base Excess ABG Hemoglobin 9.5 L Sodium Potassium Chloride Carbon Dioxide BUN Creatinine Glucose POC Glucose 152 H Calcium Ferritin Total Bilirubin AST ALT Lactate Dehydrogenase Total Creatine Kinase Troponin T C-Reactive Protein Albumin Urine WBC (Auto) Urine Creatinine 100.8 H Urine Total Protein 42 H Complement C3 Coronavirus (PCR) Hepatitis C Antibody 05/10/21 05/10/21 05/10/21 13:07 18:01 23:31 WBC RBC Hgb Hct MCV MCHC RDW Lymph % (Auto) Wolfe % (Auto) Lymph # (Auto) Wolfe # (Auto) Seg Neutrophils % Seg Neuts % (Manual) Lymphocytes % (Manual) Monocytes % (Manual) Seg Neutrophils # Seg Neutrophils # Man Lymphocytes # (Manual) Monocytes # (Manual) PT D-Dimer Heparin Anti-Xa Level ABG pH ABG pO2 ABG HCO3 ABG O2 Saturation ABG Base Excess ABG Hemoglobin Sodium Potassium Chloride Carbon Dioxide BUN Creatinine Glucose POC Glucose 150 H 189 H 142 H Calcium Ferritin Total Bilirubin AST ALT Lactate Dehydrogenase Total Creatine Kinase Troponin T C-Reactive Protein Albumin Urine WBC (Auto) Urine Creatinine Urine Total Protein Complement C3 Coronavirus (PCR) Hepatitis C Antibody 05/10/21 05/11/21 05/11/21 Unknown 05:25 06:53 WBC RBC Hgb Hct MCV MCHC RDW Lymph % (Auto) Wolfe % (Auto) Lymph # (Auto) Wolfe # (Auto) Seg Neutrophils % Seg Neuts % (Manual) Lymphocytes % (Manual) Monocytes % (Manual) Seg Neutrophils # Seg Neutrophils # Man Lymphocytes # (Manual) Monocytes # (Manual) PT D-Dimer Heparin Anti-Xa Level ABG pH ABG pO2 126.6 H ABG HCO3 ABG O2 Saturation ABG Base Excess ABG Hemoglobin 9.2 L Sodium 150 H Potassium Chloride 116.6 H Carbon Dioxide 21 L BUN 62 H Creatinine 2.5 H Glucose 142 H POC Glucose 163 H Calcium Ferritin Total Bilirubin AST ALT Lactate Dehydrogenase Total Creatine Kinase Troponin T C-Reactive Protein Albumin Urine WBC (Auto) Urine Creatinine Urine Total Protein Complement C3 Coronavirus (PCR) Hepatitis C Antibody 05/11/21 05/11/21 05/11/21 06:53 11:06 13:51 WBC RBC 3.07 L Hgb 9.3 L Hct 29.0 L MCV 95 H MCHC RDW 16.1 H Lymph % (Auto) Wolfe % (Auto) Lymph # (Auto) Wolfe # (Auto) Seg Neutrophils % Seg Neuts % (Manual) Lymphocytes % (Manual) Monocytes % (Manual) Seg Neutrophils # Seg Neutrophils # Man Lymphocytes # (Manual) Monocytes # (Manual) PT D-Dimer Heparin Anti-Xa Level ABG pH ABG pO2 74.9 L ABG HCO3 ABG O2 Saturation ABG Base Excess -3.3 L ABG Hemoglobin 10.8 L Sodium Potassium Chloride Carbon Dioxide BUN Creatinine Glucose POC Glucose 145 H Calcium Ferritin Total Bilirubin AST ALT Lactate Dehydrogenase Total Creatine Kinase Troponin T C-Reactive Protein Albumin Urine WBC (Auto) Urine Creatinine Urine Total Protein Complement C3 Coronavirus (PCR) Hepatitis C Antibody 05/11/21 05/11/21 05/11/21 14:43 14:43 15:47 WBC RBC Hgb 9.2 L Hct 29.7 L MCV MCHC RDW Lymph % (Auto) Wolfe % (Auto) Lymph # (Auto) Wolfe # (Auto) Seg Neutrophils % Seg Neuts % (Manual) Lymphocytes % (Manual) Monocytes % (Manual) Seg Neutrophils # Seg Neutrophils # Man Lymphocytes # (Manual) Monocytes # (Manual) PT 15.6 H D-Dimer Heparin Anti-Xa Level ABG pH ABG pO2 ABG HCO3 ABG O2 Saturation ABG Base Excess ABG Hemoglobin Sodium Potassium Chloride Carbon Dioxide BUN Creatinine Glucose POC Glucose 137 H Calcium Ferritin Total Bilirubin AST ALT Lactate Dehydrogenase Total Creatine Kinase Troponin T C-Reactive Protein Albumin Urine WBC (Auto) Urine Creatinine Urine Total Protein Complement C3 Coronavirus (PCR) Hepatitis C Antibody 05/12/21 05/12/21 05/12/21 00:04 05:07 07:19 WBC 11.9 H RBC 3.00 L Hgb 9.1 L Hct 28.9 L MCV 96 H MCHC RDW 16.7 H Lymph % (Auto) 11.5 L Wolfe % (Auto) 8.2 H Lymph # (Auto) Wolfe # (Auto) 1.0 H Seg Neutrophils % 80.0 H Seg Neuts % (Manual) Lymphocytes % (Manual) Monocytes % (Manual) Seg Neutrophils # 9.6 H Seg Neutrophils # Man Lymphocytes # (Manual) Monocytes # (Manual) PT D-Dimer Heparin Anti-Xa Level ABG pH ABG pO2 ABG HCO3 ABG O2 Saturation ABG Base Excess ABG Hemoglobin Sodium Potassium Chloride Carbon Dioxide BUN Creatinine Glucose POC Glucose 121 H 117 H Calcium Ferritin Total Bilirubin AST ALT Lactate Dehydrogenase Total Creatine Kinase Troponin T C-Reactive Protein Albumin Urine WBC (Auto) Urine Creatinine Urine Total Protein Complement C3 Coronavirus (PCR) Hepatitis C Antibody 05/12/21 05/12/21 05/12/21 07:19 07:19 07:19 WBC RBC Hgb Hct MCV MCHC RDW Lymph % (Auto) Wolfe % (Auto) Lymph # (Auto) Wolfe # (Auto) Seg Neutrophils % Seg Neuts % (Manual) Lymphocytes % (Manual) Monocytes % (Manual) Seg Neutrophils # Seg Neutrophils # Man Lymphocytes # (Manual) Monocytes # (Manual) PT D-Dimer 2730.61 H Heparin Anti-Xa Level ABG pH ABG pO2 ABG HCO3 ABG O2 Saturation ABG Base Excess ABG Hemoglobin Sodium 146 H Potassium 5.1 H Chloride 112.4 H Carbon Dioxide 21 L BUN 61 H Creatinine 2.2 H Glucose 136 H POC Glucose Calcium 8.1 L Ferritin 640.2 H Total Bilirubin AST ALT Lactate Dehydrogenase 314 H Total Creatine Kinase Troponin T C-Reactive Protein 1.60 H Albumin Urine WBC (Auto) Urine Creatinine Urine Total Protein Complement C3 Coronavirus (PCR) Hepatitis C Antibody 0105/12/21 05/12/21 11:10 16:10 16:38 WBC RBC Hgb Hct MCV MCHC RDW Lymph % (Auto) Wolfe % (Auto) Lymph # (Auto) Wolfe # (Auto) Seg Neutrophils % Seg Neuts % (Manual) Lymphocytes % (Manual) Monocytes % (Manual) Seg Neutrophils # Seg Neutrophils # Man Lymphocytes # (Manual) Monocytes # (Manual) PT D-Dimer Heparin Anti-Xa Level 0.20 L ABG pH ABG pO2 ABG HCO3 ABG O2 Saturation ABG Base Excess ABG Hemoglobin Sodium Potassium Chloride Carbon Dioxide BUN Creatinine Glucose POC Glucose 131 H 157 H Calcium Ferritin Total Bilirubin AST ALT Lactate Dehydrogenase Total Creatine Kinase Troponin T C-Reactive Protein Albumin Urine WBC (Auto) Urine Creatinine Urine Total Protein Complement C3 Coronavirus (PCR) Hepatitis C Antibody 05/12/21 05/13/21 05/13/21 23:30 00:12 04:20 WBC RBC Hgb Hct MCV MCHC RDW Lymph % (Auto) Wolfe % (Auto) Lymph # (Auto) Wolfe # (Auto) Seg Neutrophils % Seg Neuts % (Manual) Lymphocytes % (Manual) Monocytes % (Manual) Seg Neutrophils # Seg Neutrophils # Man Lymphocytes # (Manual) Monocytes # (Manual) PT D-Dimer Heparin Anti-Xa Level 0.13 L ABG pH ABG pO2 ABG HCO3 ABG O2 Saturation ABG Base Excess ABG Hemoglobin Sodium Potassium Chloride 111.2 H Carbon Dioxide BUN 53 H Creatinine 1.9 H Glucose 121 H POC Glucose 115 H Calcium 8.3 L Ferritin Total Bilirubin AST ALT Lactate Dehydrogenase Total Creatine Kinase Troponin T C-Reactive Protein Albumin Urine WBC (Auto) Urine Creatinine Urine Total Protein Complement C3 Coronavirus (PCR) Hepatitis C Antibody 05/13/21 05/13/21 05/13/21 04:20 11:15 11:29 WBC 13.1 H RBC 2.86 L Hgb 8.5 L Hct 26.9 L MCV MCHC RDW 15.7 H Lymph % (Auto) Wolfe % (Auto) Lymph # (Auto) Wolfe # (Auto) Seg Neutrophils % Seg Neuts % (Manual) Lymphocytes % (Manual) Monocytes % (Manual) Seg Neutrophils # Seg Neutrophils # Man Lymphocytes # (Manual) Monocytes # (Manual) PT D-Dimer Heparin Anti-Xa Level ABG pH 7.456 H ABG pO2 106.0 H ABG HCO3 ABG O2 Saturation ABG Base Excess ABG Hemoglobin 7.1 L Sodium Potassium Chloride Carbon Dioxide BUN Creatinine Glucose POC Glucose 121 H Calcium Ferritin Total Bilirubin AST ALT Lactate Dehydrogenase Total Creatine Kinase Troponin T C-Reactive Protein Albumin Urine WBC (Auto) Urine Creatinine Urine Total Protein Complement C3 Coronavirus (PCR) Hepatitis C Antibody 05/13/21 05/13/21 05/14/21 16:38 23:43 04:26 WBC 14.2 H RBC 3.11 L Hgb 9.4 L Hct 29.3 L MCV MCHC RDW 15.4 H Lymph % (Auto) Wolfe % (Auto) Lymph # (Auto) Wolfe # (Auto) Seg Neutrophils % Seg Neuts % (Manual) Lymphocytes % (Manual) Monocytes % (Manual) Seg Neutrophils # Seg Neutrophils # Man Lymphocytes # (Manual) Monocytes # (Manual) PT D-Dimer Heparin Anti-Xa Level ABG pH ABG pO2 ABG HCO3 ABG O2 Saturation ABG Base Excess ABG Hemoglobin Sodium Potassium Chloride Carbon Dioxide BUN Creatinine Glucose POC Glucose 119 H 55 L Calcium Ferritin Total Bilirubin AST ALT Lactate Dehydrogenase Total Creatine Kinase Troponin T C-Reactive Protein Albumin Urine WBC (Auto) Urine Creatinine Urine Total Protein Complement C3 Coronavirus (PCR) Hepatitis C Antibody 05/14/21 05/14/21 05/14/21 04:26 05:26 06:51 WBC RBC Hgb Hct MCV MCHC RDW Lymph % (Auto) Wolfe % (Auto) Lymph # (Auto) Wolfe # (Auto) Seg Neutrophils % Seg Neuts % (Manual) Lymphocytes % (Manual) Monocytes % (Manual) Seg Neutrophils # Seg Neutrophils # Man Lymphocytes # (Manual) Monocytes # (Manual) PT D-Dimer Heparin Anti-Xa Level ABG pH ABG pO2 ABG HCO3 ABG O2 Saturation ABG Base Excess ABG Hemoglobin Sodium Potassium 3.4 L Chloride 107.6 H Carbon Dioxide BUN 42 H Creatinine 1.9 H Glucose POC Glucose 51 L 62 L Calcium Ferritin Total Bilirubin AST ALT Lactate Dehydrogenase Total Creatine Kinase Troponin T C-Reactive Protein Albumin Urine WBC (Auto) Urine Creatinine Urine Total Protein Complement C3 Coronavirus (PCR) Hepatitis C Antibody 05/14/21 05/14/21 05/14/21 09:58 12:05 12:08 WBC RBC Hgb Hct MCV MCHC RDW Lymph % (Auto) Wolfe % (Auto) Lymph # (Auto) Wolfe # (Auto) Seg Neutrophils % Seg Neuts % (Manual) Lymphocytes % (Manual) Monocytes % (Manual) Seg Neutrophils # Seg Neutrophils # Man Lymphocytes # (Manual) Monocytes # (Manual) PT D-Dimer Heparin Anti-Xa Level ABG pH ABG pO2 ABG HCO3 ABG O2 Saturation ABG Base Excess ABG Hemoglobin Sodium Potassium 3.4 L Chloride Carbon Dioxide BUN 36 H Creatinine 1.8 H Glucose 133 H POC Glucose 60 L 127 H Calcium Ferritin Total Bilirubin AST ALT Lactate Dehydrogenase Total Creatine Kinase Troponin T C-Reactive Protein Albumin Urine WBC (Auto) Urine Creatinine Urine Total Protein Complement C3 Coronavirus (PCR) Hepatitis C Antibody 05/14/21 05/14/21 05/15/21 17:20 23:37 05:34 WBC RBC Hgb Hct MCV MCHC RDW Lymph % (Auto) Wolfe % (Auto) Lymph # (Auto) Wolfe # (Auto) Seg Neutrophils % Seg Neuts % (Manual) Lymphocytes % (Manual) Monocytes % (Manual) Seg Neutrophils # Seg Neutrophils # Man Lymphocytes # (Manual) Monocytes # (Manual) PT D-Dimer Heparin Anti-Xa Level ABG pH ABG pO2 ABG HCO3 ABG O2 Saturation ABG Base Excess ABG Hemoglobin Sodium Potassium Chloride Carbon Dioxide BUN Creatinine Glucose POC Glucose 144 H 115 H 119 H Calcium Ferritin Total Bilirubin AST ALT Lactate Dehydrogenase Total Creatine Kinase Troponin T C-Reactive Protein Albumin Urine WBC (Auto) Urine Creatinine Urine Total Protein Complement C3 Coronavirus (PCR) Hepatitis C Antibody 05/15/21 05/15/21 05/15/21 07:26 07:26 14:35 WBC 13.8 H RBC 3.32 L Hgb 10.0 L Hct 31.2 L MCV MCHC RDW 16.0 H Lymph % (Auto) Wolfe % (Auto) Lymph # (Auto) Wolfe # (Auto) Seg Neutrophils % Seg Neuts % (Manual) Lymphocytes % (Manual) Monocytes % (Manual) Seg Neutrophils # Seg Neutrophils # Man Lymphocytes # (Manual) Monocytes # (Manual) PT D-Dimer Heparin Anti-Xa Level ABG pH ABG pO2 ABG HCO3 ABG O2 Saturation ABG Base Excess ABG Hemoglobin Sodium 149 H D Potassium 3.5 L Chloride 113.2 H Carbon Dioxide BUN 29 H Creatinine 1.8 H Glucose 113 H POC Glucose 143 H Calcium Ferritin Total Bilirubin AST ALT Lactate Dehydrogenase Total Creatine Kinase Troponin T C-Reactive Protein Albumin Urine WBC (Auto) Urine Creatinine Urine Total Protein Complement C3 Coronavirus (PCR) Hepatitis C Antibody 05/16/21 05/16/21 05/16/21 06:12 08:43 10:05 WBC RBC Hgb Hct MCV MCHC RDW Lymph % (Auto) Wolfe % (Auto) Lymph # (Auto) Wolfe # (Auto) Seg Neutrophils % Seg Neuts % (Manual) Lymphocytes % (Manual) Monocytes % (Manual) Seg Neutrophils # Seg Neutrophils # Man Lymphocytes # (Manual) Monocytes # (Manual) PT D-Dimer Heparin Anti-Xa Level 0.21 L ABG pH ABG pO2 240.8 H ABG HCO3 ABG O2 Saturation 99.4 H ABG Base Excess -2.6 L ABG Hemoglobin 10.7 L Sodium Potassium Chloride Carbon Dioxide BUN Creatinine Glucose POC Glucose 34 L Calcium Ferritin Total Bilirubin AST ALT Lactate Dehydrogenase Total Creatine Kinase Troponin T C-Reactive Protein Albumin Urine WBC (Auto) Urine Creatinine Urine Total Protein Complement C3 Coronavirus (PCR) Hepatitis C Antibody 05/16/21 05/16/21 05/16/21 10:21 10:21 13:14 WBC 27.6 H RBC Hgb 11.4 L Hct MCV 99 H MCHC 30 L RDW 18.1 H Lymph % (Auto) Wolfe % (Auto) Lymph # (Auto) Wolfe # (Auto) Seg Neutrophils % Seg Neuts % (Manual) 83.0 H Lymphocytes % (Manual) 4.0 L Monocytes % (Manual) 9.0 H Seg Neutrophils # Seg Neutrophils # Man 22.9 H Lymphocytes # (Manual) 1.1 L Monocytes # (Manual) 2.5 H PT D-Dimer Heparin Anti-Xa Level ABG pH ABG pO2 ABG HCO3 ABG O2 Saturation ABG Base Excess ABG Hemoglobin Sodium Potassium Chloride 108.8 H Carbon Dioxide 17 L BUN 26 H Creatinine 1.9 H Glucose 141 H POC Glucose Calcium Ferritin Total Bilirubin AST ALT Lactate Dehydrogenase Total Creatine Kinase Troponin T 0.503 H* C-Reactive Protein Albumin 3.1 L Urine WBC (Auto) Urine Creatinine Urine Total Protein Complement C3 Coronavirus (PCR) Hepatitis C Antibody 05/16/21 05/17/21 05/17/21 18:40 00:02 04:52 WBC RBC Hgb 8.8 L Hct 28.5 L D MCV MCHC RDW Lymph % (Auto) Wolfe % (Auto) Lymph # (Auto) Wolfe # (Auto) Seg Neutrophils % Seg Neuts % (Manual) Lymphocytes % (Manual) Monocytes % (Manual) Seg Neutrophils # Seg Neutrophils # Man Lymphocytes # (Manual) Monocytes # (Manual) PT D-Dimer Heparin Anti-Xa Level ABG pH ABG pO2 ABG HCO3 ABG O2 Saturation ABG Base Excess ABG Hemoglobin Sodium Potassium Chloride Carbon Dioxide BUN Creatinine Glucose POC Glucose 114 H Calcium Ferritin Total Bilirubin AST ALT Lactate Dehydrogenase Total Creatine Kinase Troponin T 0.400 H* D C-Reactive Protein Albumin Urine WBC (Auto) Urine Creatinine Urine Total Protein Complement C3 Coronavirus (PCR) Hepatitis C Antibody 05/17/21 05/17/21 05/17/21 04:52 05:15 06:50 WBC RBC Hgb Hct MCV MCHC RDW Lymph % (Auto) Wolfe % (Auto) Lymph # (Auto) Wolfe # (Auto) Seg Neutrophils % Seg Neuts % (Manual) Lymphocytes % (Manual) Monocytes % (Manual) Seg Neutrophils # Seg Neutrophils # Man Lymphocytes # (Manual) Monocytes # (Manual) PT D-Dimer Heparin Anti-Xa Level ABG pH ABG pO2 193.7 H ABG HCO3 27.7 H ABG O2 Saturation 99.2 H ABG Base Excess 3.4 H ABG Hemoglobin 9.2 L Sodium 146 H Potassium Chloride 110.3 H Carbon Dioxide BUN 33 H Creatinine 2.3 H Glucose 120 H POC Glucose 109 H Calcium Ferritin Total Bilirubin AST ALT Lactate Dehydrogenase Total Creatine Kinase Troponin T C-Reactive Protein Albumin Urine WBC (Auto) Urine Creatinine Urine Total Protein Complement C3 Coronavirus (PCR) Hepatitis C Antibody 05/17/21 05/17/21 05/17/21 10:30 11:33 15:35 WBC RBC Hgb Hct MCV MCHC RDW Lymph % (Auto) Wolfe % (Auto) Lymph # (Auto) Wolfe # (Auto) Seg Neutrophils % Seg Neuts % (Manual) Lymphocytes % (Manual) Monocytes % (Manual) Seg Neutrophils # Seg Neutrophils # Man Lymphocytes # (Manual) Monocytes # (Manual) PT D-Dimer Heparin Anti-Xa Level ABG pH 7.457 H ABG pO2 162.5 H 103.7 H ABG HCO3 27.7 H 27.5 H ABG O2 Saturation ABG Base Excess 3.6 H ABG Hemoglobin 10.1 L 11.5 L Sodium Potassium Chloride Carbon Dioxide BUN Creatinine Glucose POC Glucose 122 H Calcium Ferritin Total Bilirubin AST ALT Lactate Dehydrogenase Total Creatine Kinase Troponin T C-Reactive Protein Albumin Urine WBC (Auto) Urine Creatinine Urine Total Protein Complement C3 Coronavirus (PCR) Hepatitis C Antibody 05/17/21 05/17/21 05/17/21 16:21 18:18 23:29 WBC RBC Hgb 9.6 L Hct 30.3 L MCV MCHC RDW Lymph % (Auto) Wolfe % (Auto) Lymph # (Auto) Wolfe # (Auto) Seg Neutrophils % Seg Neuts % (Manual) Lymphocytes % (Manual) Monocytes % (Manual) Seg Neutrophils # Seg Neutrophils # Man Lymphocytes # (Manual) Monocytes # (Manual) PT D-Dimer Heparin Anti-Xa Level ABG pH ABG pO2 ABG HCO3 ABG O2 Saturation ABG Base Excess ABG Hemoglobin Sodium Potassium Chloride Carbon Dioxide BUN Creatinine Glucose POC Glucose 133 H 111 H Calcium Ferritin Total Bilirubin AST ALT Lactate Dehydrogenase Total Creatine Kinase Troponin T C-Reactive Protein Albumin Urine WBC (Auto) Urine Creatinine Urine Total Protein Complement C3 Coronavirus (PCR) Hepatitis C Antibody 05/18/21 05/18/21 05/18/21 04:15 04:15 05:01 WBC 16.8 H RBC 3.03 L Hgb 8.9 L Hct 28.7 L MCV 95 H MCHC 31 L RDW 16.4 H Lymph % (Auto) Wolfe % (Auto) Lymph # (Auto) Wolfe # (Auto) Seg Neutrophils % Seg Neuts % (Manual) Lymphocytes % (Manual) Monocytes % (Manual) Seg Neutrophils # Seg Neutrophils # Man Lymphocytes # (Manual) Monocytes # (Manual) PT D-Dimer Heparin Anti-Xa Level ABG pH ABG pO2 ABG HCO3 ABG O2 Saturation ABG Base Excess ABG Hemoglobin Sodium Potassium Chloride Carbon Dioxide BUN 40 H Creatinine 2.1 H Glucose 115 H POC Glucose 113 H Calcium Ferritin Total Bilirubin AST ALT Lactate Dehydrogenase Total Creatine Kinase Troponin T C-Reactive Protein Albumin Urine WBC (Auto) Urine Creatinine Urine Total Protein Complement C3 Coronavirus (PCR) Hepatitis C Antibody 05/18/21 05/18/21 05/19/21 11:18 12:50 05:23 WBC 18.5 H RBC 3.31 L Hgb 9.9 L Hct 31.1 L MCV MCHC RDW 16.9 H Lymph % (Auto) Wolfe % (Auto) Lymph # (Auto) Wolfe # (Auto) Seg Neutrophils % Seg Neuts % (Manual) Lymphocytes % (Manual) Monocytes % (Manual) Seg Neutrophils # Seg Neutrophils # Man Lymphocytes # (Manual) Monocytes # (Manual) PT D-Dimer Heparin Anti-Xa Level ABG pH ABG pO2 79.6 L ABG HCO3 28.0 H ABG O2 Saturation ABG Base Excess 3.3 H ABG Hemoglobin 6.2 L Sodium Potassium Chloride Carbon Dioxide BUN Creatinine Glucose POC Glucose 129 H Calcium Ferritin Total Bilirubin AST ALT Lactate Dehydrogenase Total Creatine Kinase Troponin T C-Reactive Protein Albumin Urine WBC (Auto) Urine Creatinine Urine Total Protein Complement C3 Coronavirus (PCR) Hepatitis C Antibody 05/19/21 05/19/21 05/19/21 05:23 05:23 11:24 WBC RBC Hgb Hct MCV MCHC RDW Lymph % (Auto) Wolfe % (Auto) Lymph # (Auto) Wolfe # (Auto) Seg Neutrophils % Seg Neuts % (Manual) Lymphocytes % (Manual) Monocytes % (Manual) Seg Neutrophils # Seg Neutrophils # Man Lymphocytes # (Manual) Monocytes # (Manual) PT D-Dimer Heparin Anti-Xa Level ABG pH ABG pO2 ABG HCO3 ABG O2 Saturation ABG Base Excess ABG Hemoglobin Sodium Potassium Chloride Carbon Dioxide BUN 35 H 34 H Creatinine 2.0 H 2.1 H Glucose POC Glucose 111 H Calcium Ferritin Total Bilirubin AST ALT Lactate Dehydrogenase Total Creatine Kinase Troponin T C-Reactive Protein Albumin Urine WBC (Auto) Urine Creatinine Urine Total Protein Complement C3 Coronavirus (PCR) Hepatitis C Antibody Allied health notes reviewed: nursing
[2021-05-19] MEDS: HEPARIN/ 0.45% NACL DRIP 25,000 UNIT/500 ML BAG IV SCH (14:29)
--- NOTE | 2021-05-19 14:47 | Progress Note ---
Assessment and Plan Patient is a 56-year-old male with a past medical history of hypertension, paroxysmal SVT, medical noncompliance, smoking, substance abuse who presented to the ED with a complaint of shortness of breath and dyspnea on exertion x1 month however with significantly worsening symptoms since yesterday. NSTEMI Hypertensive Emergency COVID-19 Acute Bilateral DVT Afib YE Hepatitis C SOB Medical noncompliance Polysubstance abuse-patient tested positive for methamphetamines Echo 05/04/2021-EF 35 to 40%. Moderate concentric LVH. Moderate global hypokinesis of left ventricle. Mild mitral regurgitation. Mild pulmonary hypertension. Echocardiogram reviewed (08/27/2020): LVEF is 50 to 55%. Mild to moderate concentric LVF. Severe diastolic dysfunction is present (restrictive filling). Right ventricle is mildly hypokinetic. RVSP is 48 mmHg. No valvular abnormali ties. Plan: Patient remains in sinus rhythm Continue asa and statin Patient currently on heparin gtt for anticoagulation Continue metoprolol 50 mg p.o. 3 times daily, hydralizine Patient s/p extubation and currently on NC Patient seen in conjunction with Dr. Gamez who agrees with this plan of care - Patient Problems (1) ARF (acute renal failure) Current Visit: Yes Status: Acute (2) Elevated d-dimer Current Visit: Yes Status: Acute (3) LFT elevation Current Visit: Yes Status: Acute (4) NSTEMI (non-ST elevated myocardial infarction) Current Visit: Yes Status: Acute (5) Polysubstance abuse Current Visit: Yes Status: Acute (6) SOB (shortness of breath) Current Visit: Yes Status: Acute (7) Hypertension Current Visit: Yes Status: Chronic (8) Noncompliance with medication regimen Current Visit: Yes Status: Chronic Subjective Date of service: 05/19/21 Principal diagnosis: AHRF; COVID-19 infection; NSTEMI; YE; HFrEF (35-40%); Polysubstance abuse Interval history: Patientwas extubated yesterday and is currently on NC Patient sinus rhythm 80s on monitor Objective Vital Signs Temp Pulse Pulse Resp BP Pulse Ox 05/19/21 14:30 80 142/81 05/19/21 14:29 80 142/81 05/19/21 13:00 81 35 H 134/86 93 05/19/21 12:00 82 81 31 H 131/101 94 05/19/21 11:47 101.6 F H 05/19/21 11:00 81 43 H 138/93 05/19/21 10:38 78 145/86 05/19/21 10:00 77 43 H 145/86 96 05/19/21 09:00 92 H 54 H 168/104 97 05/19/21 08:56 89 168/104 05/19/21 08:55 89 168/104 05/19/21 08:00 76 83 16 168/104 100 05/19/21 07:40 97 05/19/21 07:13 99.4 F 05/19/21 07:00 82 18 184/115 96 05/19/21 06:00 80 17 190/119 97 05/19/21 05:00 73 14 163/108 98 05/19/21 04:00 100 F H 78 74 32 H 174/109 95 05/19/21 03:25 78 29 H 174/109 98 05/19/21 03:00 77 13 167/101 96 05/19/21 02:00 76 32 H 183/84 97 05/19/21 01:00 72 30 H 127/67 96 05/19/21 00:00 99.4 F 71 74 16 112/61 97 05/18/21 23:02 68 29 H 106/55 98 05/18/21 23:00 68 29 H 106/55 95 05/18/21 22:00 71 16 136/49 98 05/18/21 21:34 70 136/49 05/18/21 21:16 70 16 136/49 98 05/18/21 21:00 69 18 134/52 99 05/18/21 20:00 98.7 F 77 74 31 H 138/88 96 05/18/21 19:49 78 138/88 05/18/21 19:00 76 18 132/82 99 05/18/21 18:15 97.7 F 05/18/21 18:00 77 13 138/95 97 05/18/21 17:00 71 18 138/95 96 05/18/21 16:00 79 74 20 140/85 92 05/18/21 15:00 67 17 113/76 98 05/18/21 14:56 99 - Physical Examination General: Other (sedated) HEENT: Positive: PERRL Neck: Positive: trachea midline Cardiac: Positive: Reg Rate and Rhythm Lungs: Positive: Decreased Breath Sounds Neuro: Positive: Other (sedated) Abdomen: Positive: Soft Skin: Negative: Rash, Suspicious Lesions, Ulceration Extremities: Absent: edema - Labs and Meds CBC 05/19/21 Range/Units 05:23 WBC 18.5 H (4.5-11.0) K/mm3 RBC 3.31 L (3.65-5.03) M/mm3 Hgb 9.9 L (11.8-15.2) gm/dl Hct 31.1 L (35.5-45.6) % Plt Count 370 (140-440) K/mm3 Comprehensive Metabolic Panel 05/19/21 05/19/21 Range/Units 05:23 05:23 Sodium 142 141 (137-145) mmol/L Potassium 4.8 4.5 (3.6-5.0) mmol/L Chloride 104.8 105.4 (98-107) mmol/L Carbon Dioxide 26 24 (22-30) mmol/L BUN 35 H 34 H (9-20) mg/dL Creatinine 2.0 H 2.1 H (0.8-1.3) mg/dL Glucose 90 94 (75-100) mg/dL Calcium 8.9 9.1 (8.4-10.2) mg/dL - Imaging and Cardiology EKG: report reviewed, image reviewed Echo: report reviewed - Telemetry EKG Rhythm: Sinus Rhythm - EKG Sinus rhythms and dysrhythmias: sinus rhythm Ventricular dysrhythmias: ventricular premature com Chamber hypertrophy or enlargement: left ventricular hypertro - Allied health notes Allied health notes reviewed: RT
[2021-05-19] MEDS: CEFEPIME/NS 2 GM/100 ML 2 GM/100 ML BAG IV SCH (17:37)
[2021-05-19 20:19] LABS: INR 0.94 (0.87-1.13)
[2021-05-19 20:34] LABS: Partial Thromboplastin Time 72.5 Sec. (24.2-36.6)
[2021-05-19] MEDS ORDERED: APIXABAN 2.5 MG TAB PO SCH (22:00)
[2021-05-19] MEDS ORDERED: QUEtiapine 200 MG TAB PO SCH (22:00)
[2021-05-19] MEDS: QUEtiapine 100 MG TAB PO SCH (22:42)
[2021-05-20] MEDS: FAMOTIDINE 10 MG TAB FEEDTUBE SCH ×3 (03:23→21:11)
[2021-05-20] MEDS: ACETAMINOPHEN 325 MG TAB PO PRN ×3 (04:42→20:30)
[2021-05-20] MEDS: hydrALAZINE 25 MG TAB PO SCH ×3 (05:14→21:11)
[2021-05-20 05:33] LABS: Hematocrit 29.9 % (35.5-45.6); Hemoglobin 9.5 gm/dl (11.8-15.2); Mean Corpuscular HGB Conc 32 % (32-34); Mean Corpuscular Volume 94 fl (84-94); Platelet Count 410 K/mm3 (140-440); Red Blood Count 3.19 M/mm3 (3.65-5.03); Red Cell Distribution Width 17.3 % (13.2-15.2)
[2021-05-20 05:52] LABS: Calcium 8.9 mg/dL (8.4-10.2)
--- NOTE | 2021-05-20 09:24 | Progress Note ---
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 UOP and lytes are stable. Creatinine is noted today * IVF prn as tolerated to maintain euvolemia, note non-oliguric urine output * hold diuresis , Na and low bp noted, hold bp meds prn * Serum sodium stable, continue free water flushes with TFs * Replete K prn * Renal ultrasound reviewed - will need follow up CT once stable * Continue antiHTN medications * Cardiology, ICU input noted * Dose medications for renal function * Avoid potential nephrotoxins * Strict I/O Subjective Principal diagnosis: AHRF; COVID-19 infection; NSTEMI; YE; HFrEF (35-40%); Polysubstance abuse Interval history: events noted Chart, vitals, labs reviewed. Remains confused Objective - Exam Narrative Exam: Direct examination deferred in setting of COVID-19 pandemic. Primary team exam reviewed in detail Objective - Vital Signs Vital signs: Vital Signs - 12hr 05/19/21 05/19/21 05/19/21 22:00 22:43 23:00 Temperature Pulse Rate 83 87 Pulse Rate [ From Monitor] Respiratory 46 H 34 H 45 H Rate Blood Pressure 186/116 166/113 O2 Sat by Pulse 96 93 Oximetry 05/19/21 05/20/21 05/20/21 23:45 00:00 01:00 Temperature 98.0 F Pulse Rate 75 75 72 Pulse Rate [ 75 From Monitor] Respiratory 37 H 40 H Rate Blood Pressure 129/92 118/81 O2 Sat by Pulse 92 Oximetry 05/20/21 05/20/21 05/20/21 02:00 03:00 04:00 Temperature Pulse Rate 77 77 77 Pulse Rate [ From Monitor] Respiratory 42 H 46 H 40 H Rate Blood Pressure 144/98 129/94 134/93 O2 Sat by Pulse 96 98 Oximetry 05/20/21 05/20/21 05/20/21 04:42 05:01 06:01 Temperature Pulse Rate 76 82 Pulse Rate [ From Monitor] Respiratory 46 H 23 48 H Rate Blood Pressure 116/64 143/96 O2 Sat by Pulse 91 96 Oximetry 05/20/21 05/20/21 05/20/21 07:01 08:00 08:02 Temperature 100.7 F H Pulse Rate 86 Pulse Rate [ From Monitor] Respiratory 49 H Rate Blood Pressure 144/105 O2 Sat by Pulse 95 98 Oximetry - Lab 05/20/21 05:14 05/20/21 05:14 Most recent lab results ABG pH 7.428 pH Units (7.350-7.450) 05/18/21 12:50 ABG pCO2 43.3 mm Hg 05/18/21 12:50 ABG pO2 79.6 mm Hg (80.0-90.0) L 05/18/21 12:50 ABG HCO3 28.0 mmol/L (20.0-26.0) H 05/18/21 12:50 ABG O2 Saturation 97.0 % (95.0-99.0) 05/18/21 12:50 Calcium 8.9 mg/dL (8.4-10.2) 05/20/21 05:14 Phosphorus 4.00 mg/dL (2.5-4.5) 05/14/21 15:44 Magnesium 2.00 mg/dL (1.7-2.3) 05/14/21 15:44 Urine Creatinine 100.8 mg/dL (0.1-20.0) H 05/10/21 11:03 Urine Sodium 61 mmol/L 05/05/21 09:57 Urine Total Protein 42 mg/dL (5-11.8) H 05/10/21 11:03 Medications & Allergies - Medications Allergies/Adverse Reactions: Allergies No Known Allergies Allergy (Verified 05/08/21 07:47) Home Medications: Home Medications Medication Instructions Recorded Confirmed Last Taken Type Cefpodoxime Proxetil 200 mg PO Q12H #10 tablet 09/11/20 05/19/21 Unknown Rx Famotidine [Pepcid] 20 mg PO BID #30 tablet 04/13/21 05/19/21 Unknown Rx Losartan [Cozaar] 100 mg PO QDAY #60 tablet 04/13/21 05/19/21 Unknown Rx Metoprolol Xl [Metoprolol 25 mg PO QDAY #30 tablet 04/13/21 05/19/21 Unknown Rx SUCCINATE ER TAB] NIFEdipine XL [Procardia Xl] 60 mg PO Q12HR #60 tablet 04/13/21 05/19/21 Unknown Rx hydrALAZINE [Apresoline TAB] 50 mg PO Q8HR #180 tablet 04/13/21 05/19/21 Unknown Rx Active Medications: Generic Name Dose Route Start Last Admin Trade Name Freq PRN Reason Stop Dose Admin Acetaminophen 650 mg 05/04/21 12:34 05/20/21 04:42 Acetaminophen 325 Mg Tab PO 650 mg Q4H PRN Administration Pain MILD(1-3)/Fever >100.5/MARIA Acetaminophen 650 mg 05/07/21 16:00 05/11/21 16:25 Acetaminophen 650 Mg Rect Supp MD 650 mg Q4H PRN Administration Pain, Mild (1-3) Amlodipine Besylate 5 mg 05/19/21 11:00 05/19/21 10:38 Amlodipine 5 Mg Tab PO 5 mg QDAY RISHI Administration Apixaban 2.5 mg 05/19/21 22:00 05/19/21 22:42 Apixaban 2.5 Mg Tab PO 2.5 mg Q12HR RISHI Administration Protocol Aspirin 81 mg 05/06/21 14:00 05/19/21 09:00 Aspirin 81 Mg Tab Chew PO 81 mg QDAY RISHI Administration Atorvastatin Calcium 40 mg 05/09/21 22:00 05/19/21 22:42 Atorvastatin 40 Mg Tab FEEDTUBE 40 mg QHS RISHI Administration Chlordiazepoxide HCl 50 mg 05/19/21 22:00 05/19/21 22:42 Chlordiazepoxide 25 Mg Cap PO 50 mg BID RISHI Administration Dextrose 0 ml 05/09/21 10:49 05/14/21 06:55 Dextrose 10% *Hypoglycemia IV 250 ml PRN PRN Administration Hypoglycemia Famotidine 10 mg 05/17/21 10:00 05/20/21 03:23 Famotidine 10 Mg Tab FEEDTUBE Not Given BID RISHI Haloperidol Lactate 5 mg 05/09/21 18:32 05/18/21 19:52 Haloperidol Lactate 5 Mg/1 Ml Inj IV 5 mg Q6H PRN Administration Agitation Hydralazine HCl 50 mg 05/04/21 14:00 05/20/21 05:14 Hydralazine 25 Mg Tab PO 50 mg Q8HR RISHI Administration Hydrophilic Ointment 1 applic 05/05/21 15:21 Lip Therapy Vaseline TP Q2HR PRN Dry Lips Cefepime HCl 2 gm in 100 mls @ 200 mls/hr 05/18/21 18:00 05/19/21 17:37 Cefepime/Ns 2 Gm/100 Ml IV 200 mls/hr Q24H RISHI Administration Protocol Insulin Human Lispro 0 unit 05/10/21 09:40 05/12/21 16:49 Insulin Lispro 100 Unit/Ml SUB-Q 2 unit Q6HR PRN Administration Hyperglycemia Protocol Labetalol HCl 10 mg 05/15/21 10:24 Labetalol 20 Mg/4 Ml Inj IV Q4H PRN sbp> 160. Metoprolol Tartrate 50 mg 05/10/21 14:00 05/19/21 22:54 Metoprolol Tartrate 50 Mg Tab FEEDTUBE 50 mg TID RISHI Administration Multi-Ingred Cream/Lotion/Oil/Oint 1 applic 05/05/21 15:21 Mineral Oil/Petrolatum, White Ophth Oint 3.5 Gm OU Q4HR PRN Dry Eye(s) Ondansetron HCl 4 mg 05/04/21 12:34 05/04/21 21:51 Ondansetron 4 Mg/2 Ml Inj IV 4 mg Q8H PRN Administration Nausea And Vomiting Quetiapine Fumarate 100 mg 05/19/21 22:00 05/19/21 22:42 Quetiapine 100 Mg Tab PO 100 mg BID RISHI Administration Senna/Docusate Sodium 1 tab 05/05/21 22:00 05/19/21 22:54 Sennosides/Docusate Sodium 8.6/50 Mg Tab FEEDTUBE Not Given BID RISHI Sodium Chloride 10 ml 05/04/21 22:00 05/19/21 22:54 Sodium Chloride 0.9% 10 Ml Flush Syringe IV 10 ml BID RISHI Administration Sodium Chloride 10 ml 05/04/21 12:34 05/06/21 13:59 Sodium Chloride 0.9% 10 Ml Flush Syringe IV 10 ml PRN PRN Administration LINE FLUSH Sodium Chloride 10 ml 05/09/21 09:46 Sodium Chloride 0.9% 50 Ml Ivpb IV PRN PRN FLUSH
--- NOTE | 2021-05-20 10:54 | Progress Note ---
Assessment and Plan Patient is a 56-year-old male with a past medical history of hypertension, paroxysmal SVT, medical noncompliance, smoking, substance abuse who presented to the ED with a complaint of shortness of breath and dyspnea on exertion x1 month however with significantly worsening symptoms since yesterday. NSTEMI Hypertensive Emergency COVID-19 Acute Bilateral DVT Afib YE Hepatitis C SOB Medical noncompliance Polysubstance abuse-patient tested positive for methamphetamines Echo 05/04/2021-EF 35 to 40%. Moderate concentric LVH. Moderate global hypokinesis of left ventricle. Mild mitral regurgitation. Mild pulmonary hypertension. Echocardiogram reviewed (08/27/2020): LVEF is 50 to 55%. Mild to moderate concentric LVF. Severe diastolic dysfunction is present (restrictive filling). Right ventricle is mildly hypokinetic. RVSP is 48 mmHg. No valvular abnormali ties. Plan: Patient remains in sinus rhythm Continue asa and statin Patient currently on eliquis for anticoagulation Continue metoprolol 50 mg p.o. 3 times daily, hydralizine Patient s/p extubation and currently on NC Continue present management. Will see as needed over the weekend Patient seen in conjunction with Dr. Gamez who agrees with this plan of care - Patient Problems (1) ARF (acute renal failure) Current Visit: Yes Status: Acute (2) Elevated d-dimer Current Visit: Yes Status: Acute (3) LFT elevation Current Visit: Yes Status: Acute (4) NSTEMI (non-ST elevated myocardial infarction) Current Visit: Yes Status: Acute (5) Polysubstance abuse Current Visit: Yes Status: Acute (6) SOB (shortness of breath) Current Visit: Yes Status: Acute (7) Hypertension Current Visit: Yes Status: Chronic (8) Noncompliance with medication regimen Current Visit: Yes Status: Chronic Subjective Date of service: 05/20/21 Principal diagnosis: NSTEMI Interval history: Patient resting in bed is currently on NC Patient sinus rhythm 80s-90s on monitor Objective Vital Signs Temp Pulse Pulse Resp BP Pulse Ox 05/20/21 08:02 98 05/20/21 08:00 100.7 F H 05/20/21 07:01 86 49 H 144/105 95 05/20/21 06:01 82 48 H 143/96 96 05/20/21 05:01 76 23 116/64 91 05/20/21 04:42 46 H 05/20/21 04:00 77 40 H 134/93 98 05/20/21 03:00 77 46 H 129/94 05/20/21 02:00 77 42 H 144/98 96 05/20/21 01:00 72 40 H 118/81 05/20/21 00:00 98.0 F 75 75 37 H 129/92 92 05/19/21 23:45 75 05/19/21 23:00 87 45 H 166/113 93 05/19/21 22:43 34 H 05/19/21 22:00 83 46 H 186/116 96 05/19/21 21:00 81 45 H 167/116 05/19/21 20:19 97 05/19/21 20:00 101.1 F H 80 52 H 162/104 95 05/19/21 19:00 78 43 H 161/103 93 05/19/21 18:00 75 46 H 166/107 96 05/19/21 17:28 74 22 98 05/19/21 16:00 101.3 F H 73 73 32 H 100 05/19/21 15:00 99 F 77 17 131/84 93 05/19/21 14:30 80 142/81 05/19/21 14:29 80 142/81 05/19/21 14:00 78 11 L 142/81 93 05/19/21 13:00 81 35 H 134/86 93 05/19/21 12:00 82 81 31 H 131/101 94 05/19/21 11:47 101.6 F H 05/19/21 11:00 81 43 H 138/93 - Physical Examination General: Other (sedated) HEENT: Positive: PERRL Neck: Positive: trachea midline Cardiac: Positive: Reg Rate and Rhythm Lungs: Positive: Rales Neuro: Positive: Other (sedated) Abdomen: Positive: Soft Skin: Negative: Rash, Suspicious Lesions, Ulceration Extremities: Absent: edema - Labs and Meds Coagulation 05/19/21 Range/Units 19:36 PT 13.6 (12.2-14.9) Sec. INR 0.94 (0.87-1.13) APTT 72.5 H* (24.2-36.6) Sec. CBC 05/20/21 Range/Units 05:14 WBC 19.7 H (4.5-11.0) K/mm3 RBC 3.19 L (3.65-5.03) M/mm3 Hgb 9.5 L (11.8-15.2) gm/dl Hct 29.9 L (35.5-45.6) % Plt Count 410 (140-440) K/mm3 Comprehensive Metabolic Panel 05/20/21 Range/Units 05:14 Sodium 137 (137-145) mmol/L Potassium 4.3 (3.6-5.0) mmol/L Chloride 100.7 (98-107) mmol/L Carbon Dioxide 25 (22-30) mmol/L BUN 31 H (9-20) mg/dL Creatinine 2.1 H (0.8-1.3) mg/dL Glucose 130 H (75-100) mg/dL Calcium 8.9 (8.4-10.2) mg/dL - Imaging and Cardiology EKG: report reviewed, image reviewed Echo: report reviewed - EKG Sinus rhythms and dysrhythmias: sinus rhythm Ventricular dysrhythmias: ventricular premature com Chamber hypertrophy or enlargement: left ventricular hypertro - Allied health notes Allied health notes reviewed: RT
[2021-05-20] MEDS: ASPIRIN 81 MG TAB CHEW PO SCH (10:58)
[2021-05-20] MEDS: SENNOSIDES/DOCUSATE SODIUM 8.6/50 MG TAB FEEDTUBE SCH ×2 (10:58→21:12)
[2021-05-20] MEDS: amLODIPine 5 MG TAB PO SCH (10:58)
[2021-05-20] MEDS: METOPROLOL TARTRATE 50 MG TAB FEEDTUBE SCH ×3 (11:02→20:30)
[2021-05-20] MEDS: QUEtiapine 100 MG TAB PO SCH (11:02)
[2021-05-20] MEDS: chlordiazePOXIDE 25 MG CAP PO SCH ×2 (11:09→21:10)
[2021-05-20] MEDS: APIXABAN 5 MG TAB PO SCH ×2 (11:09→21:11)
--- NOTE | 2021-05-20 12:10 | Progress Note ---
Assessment and Plan Assessment and plan: This is a 56-year-old male with a nicotine abuse, A. fib, hypertension, and chronic medication noncompliance and homelessness who presented to emergency department on 05/04 with complaints of dyspnea on exertion for the past month worsening over the past 3 days, intermittent left-sided chest tightness with activity, and persistent cough without fever. Work-up in the emergency department revealed anemia, hyponatremia, elevated BUN/creatinine and transaminitis. Patient was admitted to the hospitalist service with acute kidney injury and accelerated hypertension. Hospital course to date 05/04/2021. 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 However, patient with elevated creatinine therefore will hold off on cath evaluation. Nephrology consultation for acute kidney injury. Etiology likely secondary to vasomotor nephropathy/dehydration. We will start IV fluid hydration. Check renal ultrasound to rule out obstructive uropathy. We will resume home medications for the accelerated hypertension 05/05/2021. Echocardiogram reveals EF 35-40% with moderate concentric left ventricular hypertrophy. Moderate global hypokinesis of left ventricle. Mild mitral regurgitation. Mild pulmonary hypertension. Troponins are believed to be elevated in the setting of acute kidney injury. No beta-blockers due to cocaine use continue heparin and nitro drip. Continue CIWA protocol. Await urine studies 05/06/2021. Patient decompensated yesterday with worsening respiratory failure and difficulty to protect airway. Patient was breathing sonorously, and hypoxic. Patient was intubated and currently is on mechanical ventilation. Patient with AC mode ventilation rate of 20, tidal volume 450, FiO2 40% and PEEP of 6. COVID PCR testing on 05/05/2021 was found to be positive. Echocardiogram completed on this admission shows worsening EF from August 2020. Echocardiogram now reveals moderate concentric left ventricular hypertrophy with moderate global hypokinesis and EF of 35-40%. Mild pulmonary hypertension. 05/08: Continue current management, renal stable, LFTs stable and if improved will start on statin therapy. 05/09: Patient is febrile, will panculture, PSV today. CRP pending. Mucoid discharge noted from meatus which was sent for culture. Hypernatremia persists, free water flushes increased 05/10: PSV trial per CCM, T-max 102.3, given mildly elevated procalcitonin started on ceftriaxone 2 g every 24 for 2 days per ID. Overnight patient had atrial fibrillation which was treated with Cardizem drip and converted to sinus rhythm. Metoprolol p.o. increased to 3 times daily. 05/11: Patient still running fevers and if still febrile tomorrow will escalate to cefepime per ID as he is currently on ceftriaxone, CCM attempted PSV but patient became agitated and was switched back to pressure control. Lower extremity ultrasound shows acute DVT and started on heparin drip. Started on scheduled Librium. Patient remains with hypernatremia and elevated creatinine and on IV fluids. Free water flushes adjusted. Started on vancomycin today 05/12: Patient placed on pressure support trial without fentanyl, hypernatremia improving, hyperkalemia noted. Slight improvement to renal function. 05/13: Patient was extubated today, ID change antibiotics to Zosyn for Enterococcus, was started tapering Librium in the morning, renal function slightly improved. Possible transfer to floor tomorrow. ST evaluation for swallow ordered. 05/14: Patient became hypoglycemic overnight and started on dextrose IV fluids. Accu-Chek fingersticks have been low but on a.m. BMP patient blood glucose is 100. Other BMP pending. Feeding tube replaced due to need for enteral access and patient being severely confused. Renal functions remains the same. Upon confirmation will restart tube feedings, p.o. medications and free water flushes. 05/15: Remains confused/somnolent on my encounter. [facility] Remains hypertensive. Added amlodipine 10 mg NG and labetalol prn. ST eval today but doubt he will participate. Potassium replaced. Renal function improving overall, however, hypernatremic. Inc TF FWF to 250 cc q4hr. 05/16: Respiratory distress this AM, hypoxic in 60's not protecting airway. Required intubation, patient now ICU patient. Reduce fluid to FWF only, IVF d/c off jun. CXR ordered demonstrates pulmonary edema. Lasix 40 mg IV bid ordered. Troponin elevated, continue heparin gtt. Would recommend decreasing sedating me dications at this point, agree with librium taper. 05/17: Patient remains on the vent and sedated, RASS -3. Plan for possible sedation vacation today. D/w CCM plan to wean for possible extubation on the vent. 05/18: Tolerated 4hrs of sedation vacation yesterday, on low dose fentanyl this am. Patient is tolerating PST this am. Plan to wean off sedation and wean vent setting for possible extubation today. 05/19: s/p extubation now stable on 3L NC. Lethargic this am, will decreased Seroquel. Speech consult for swallow eval, continue enteral nutrition via NGT for now. Hypertensive throughout the night, Norvac added. Remains on heparin gtt for DVT, might need to transition to PO AC, will d/w CCM. Patient is stable for transfer to [facility] 05/20: Continue sepsis work up considering fever, aspiration precautions. Discussed with nursing staff will hold am seroquel. Continue tube feed. RENAL Function remains relatively stable, possible has peaked. Assessment and Plan Acute hypoxic respiratory failure (worsened) -CCM consulted, appreciate recommendations -Intubated on 05/05 with 7.50 ETT at 20 over the lips in the ED and extubated 05/13 -Reintubated on 05/16; Exttubated on 05/18 -CCM consulted, appreciate recommendations -Aspiration precaution HOB above 30 -Continue O2 supplementation and wean as tolerated -Continue SPO2 monitoring for SPO2 goal above 92% Severe COVID-19 pneumonia/leukocytosis, Enterococcus in urine -Infectious disease consulted, appreciate recommendations -COVID-19 PCR positive -Continue droplet/precautions -Not a candidate for remdesivir given acute kidney injury -Dexamethasone for 10 days -Anticoagulation per hospital protocol -Trend COVID-19 from 2 markers (ferritin, D-dimer, CRP, LDH) -Continue IV Abx per ID Acute DVT -Bilateral lower extremity Doppler ultrasound shows acute DVT -On Heparin drip per protocol -Monitor for s/s of active bleeding -Trend CBC and Coags -Will D/W CCM for possible bridge to PO AC agent Acute kidney injury likely secondary to vasomotor nephropathy -Nephrology consulted, appreciate recommendations -Avoid nephrotoxic medications -Renally dose medication -Strict intake and output -FeNa indicates prerenal -Renal ultrasound completed: 1.7 hyper echoic mass within the left upper pole, Monitor for now follow-up with CT once stable Metabolic encephalopathy -Lethargic this am, has been off sedation for over 24hrs -Seroquel decreased -Continue Librium to prevent DTs -Maintain sleep-wake cycle -Monitor QTC -Avoid delirium -May need psych consult Hypertension; S/p hypertensive emergency -Cardiology on consult -Continue current antihypertensives therapy -Norvasc added for better control -Blood pressure monitoring per protocol -PRN Labetalol for SBP greater than 160 Heart failure reduced EF, cardiomyopathy, NSTEMI, paroxysmal atrial fibrillation -Continue beta-sylvia and aspirin -Resume statin therapy -Cardiology consulted, appreciate recommendations -Echo 05/04/2021-EF 35 to 40%. Moderate concentric LVH. Moderate global hypokinesis of left ventricle. Mild mitral regurgitation. Mild pulmonary hy pertension. Echocardiogram reviewed (08/27/2020): LVEF is 50 to 55%. Mild to moderate concentric LVF. Severe diastolic dysfunction is present (restrictive filling). Right ventricle is mildly hypokinetic. RVSP is 48 mmHg. No valvular abnormalities. -S/p heparin drip for 24 hours -Patient had atrial fibrillation overnight on 05/10 and was treated with a Cardizem drip Polysubstance abuse, tobacco abuse -UDS positive for amphetamines -We will need cessation counseling when appropriate Transaminitis, h/o hepatitis C -Renal ultrasound showed incidental finding of cholelithiasis -Trend LFTs -Continue supportive management Anemia -Trend CBC -Transfuse for hemoglobin less than 7 DVT/ GI prophylaxis -Heparin gtt -PPI History Interval history: Patient seen and examined, still lethargic, and with fever. Hospitalist Physical - Physical exam Narrative exam: General appearance: Present: No distress, Sedated but responds to noxious stimuli - Neck Neck: Present: supple - Respiratory Respiratory: bilateral: rhonchi, wheezing (Scattered) - Cardiovascular Heart rate: 86 Rhythm: irregularly irregular - Extremities Extremities: no ischemia, pulses intact - Abdominal General gastrointestinal: soft, non-tender, normal bowel sounds - Integumentary Integumentary: Present: clear, warm, dry - Psychiatric Psychiatric: unable to examine - Neurologic Neurologic: other moves all extremity - Allied Health Allied health notes reviewed: nursing, case management - Constitutional Vitals: Temp Pulse Resp BP Pulse Ox 101.4 F H 100 H 49 H 150/110 98 05/20/21 11:42 05/20/21 11:02 05/20/21 07:01 05/20/21 11:02 05/20/21 08:02 General appearance: Present: no acute distress HEART Score - HEART Score EKG: Non-specific Age: 45-65 Risk factors: 1-2 risk factors Troponin: Troponin T 0.400 ng/mL (0.00-0.029) H* D 05/16/21 18:40 Troponin: 1-3x normal limit - Critical Actions Critical Actions: 4-6 pts:12-16.6% risk of adverse cardiac event. Should be admitted Results - Labs CBC & Chem 7: 05/20/21 05:14 05/20/21 05:14 Labs: Laboratory Last Values WBC 19.7 K/mm3 (4.5-11.0) H 05/20/21 05:14 RBC 3.19 M/mm3 (3.65-5.03) L 05/20/21 05:14 Hgb 9.5 gm/dl (11.8-15.2) L 05/20/21 05:14 Hct 29.9 % (35.5-45.6) L 05/20/21 05:14 MCV 94 fl (84-94) 05/20/21 05:14 MCH 30 pg (28-32) 05/20/21 05:14 MCHC 32 % (32-34) 05/20/21 05:14 RDW 17.3 % (13.2-15.2) H 05/20/21 05:14 Plt Count 410 K/mm3 (140-440) 05/20/21 05:14 Lymph % (Auto) Core Baker 05/16/21 10:21 [place] % (Auto) Core Baker 05/16/21 10:21 Eos % (Auto) Core Baker 05/16/21 10:21 Baso % (Auto) Core Baker 05/16/21 10:21 Lymph # (Auto) Core Baker 05/16/21 10:21 [place] # (Auto) Core Baker 05/16/21 10:21 Eos # (Auto) Core Baker 05/16/21 10:21 Baso # (Auto) Core Baker 05/16/21 10:21 Add Manual Diff Complete 05/16/21 10:21 Total Counted 100 05/16/21 10:21 Seg Neutrophils % Core Baker 05/16/21 10:21 Seg Neuts % (Manual) 83.0 % (40.0-70.0) H 05/16/21 10:21 Band Neutrophils % 2.0 % 05/16/21 10:21 Lymphocytes % (Manual) 4.0 % (13.4-35.0) L 05/16/21 10:21 Reactive Lymphs % (Man) 0 % 05/16/21 10:21 Monocytes % (Manual) 9.0 % (0.0-7.3) H 05/16/21 10:21 Eosinophils % (Manual) 0 % (0.0-4.3) 05/16/21 10:21 Basophils % (Manual) 0 % (0.0-1.8) 05/16/21 10:21 Metamyelocytes % 0 % 05/16/21 10:21 Myelocytes % 2.0 % 05/16/21 10:21 Promyelocytes % 0 % 05/16/21 10:21 Blast Cells % 0 % 05/16/21 10:21 Nucleated RBC % Not Reportable 05/16/21 10:21 Seg Neutrophils # Core Baker 05/16/21 10:21 Seg Neutrophils # Man 22.9 K/mm3 (1.8-7.7) H 05/16/21 10:21 Band Neutrophils # 0.6 K/mm3 05/16/21 10:21 Lymphocytes # (Manual) 1.1 K/mm3 (1.2-5.4) L 05/16/21 10:21 Abs React Lymphs (Man) 0.0 K/mm3 05/16/21 10:21 Monocytes # (Manual) 2.5 K/mm3 (0.0-0.8) H 05/16/21 10:21 Eosinophils # (Manual) 0.0 K/mm3 (0.0-0.4) 05/16/21 10:21 Basophils # (Manual) 0.0 K/mm3 (0.0-0.1) 05/16/21 10:21 Metamyelocytes # 0.0 K/mm3 05/16/21 10:21 Myelocytes # 0.6 K/mm3 05/16/21 10:21 Promyelocytes # 0.0 K/mm3 05/16/21 10:21 Blast Cells # 0.0 K/mm3 05/16/21 10:21 WBC Morphology Not Reportable 05/16/21 10:21 Hypersegmented Neuts Not Reportable 05/16/21 10:21 Hyposegmented Neuts Not Reportable 05/16/21 10:21 Hypogranular Neuts Not Reportable 05/16/21 10:21 Smudge Cells Not Reportable 05/16/21 10:21 Toxic Granulation Not Reportable 05/16/21 10:21 Toxic Vacuolation Not Reportable 05/16/21 10:21 Dohle Bodies Not Reportable 05/16/21 10:21 Pelger-Huet Anomaly Not Reportable 05/16/21 10:21 Jesse Rods Not Reportable 05/16/21 10:21 Platelet Estimate Consistent w auto 05/16/21 10:21 Clumped Platelets Few 05/16/21 10:21 Plt Clumps, EDTA Not Reportable 05/16/21 10:21 Large Platelets Not Reportable 05/16/21 10:21 Giant Platelets Not Reportable 05/16/21 10:21 Platelet Satelliting Not Reportable 05/16/21 10:21 Plt Morphology Comment Not Reportable 05/16/21 10:21 RBC Morphology Not Reportable 05/16/21 10:21 Dimorphic RBCs Not Reportable 05/16/21 10:21 Polychromasia Not Reportable 05/16/21 10:21 Hypochromasia Not Reportable 05/16/21 10:21 Poikilocytosis Not Reportable 05/16/21 10:21 Anisocytosis 1+ 05/16/21 10:21 Microcytosis Not Reportable 05/16/21 10:21 Macrocytosis Few 05/16/21 10:21 Spherocytes Not Reportable 05/16/21 10:21 Pappenheimer Bodies Not Reportable 05/16/21 10:21 Sickle Cells Not Reportable 05/16/21 10:21 Target Cells Not Reportable 05/16/21 10:21 Tear Drop Cells Not Reportable 05/16/21 10:21 Ovalocytes Not Reportable 05/16/21 10:21 Helmet Cells Not Reportable 05/16/21 10:21 Murphy-Youngwood Bodies Not Reportable 05/16/21 10:21 [place] Rings Not Reportable 05/16/21 10:21 [place] Cells Not Reportable 05/16/21 10:21 Bite Cells Not Reportable 05/16/21 10:21 Crenated Cell Not Reportable 05/16/21 10:21 Elliptocytes Not Reportable 05/16/21 10:21 Acanthocytes (Spur) Not Reportable 05/16/21 10:21 Rouleaux Not Reportable 05/16/21 10:21 Hemoglobin C Crystals Not Reportable 05/16/21 10:21 Schistocytes Not Reportable 05/16/21 10:21 Malaria parasites Not Reportable 05/16/21 10:21 Tomi Bodies Not Reportable 05/16/21 10:21 Hem Pathologist Commnt No 05/16/21 10:21 PT 13.6 Sec. (12.2-14.9) 05/19/21 19:36 INR 0.94 (0.87-1.13) 05/19/21 19:36 APTT 72.5 Sec. (24.2-36.6) H* 05/19/21 19:36 D-Dimer 2730.61 ng/mlDDU (0-234) H 05/12/21 07:19 Heparin Anti-Xa Level 0.47 U.I./ml (0.3-0.7) 05/19/21 05:23 ABG pH 7.428 pH Units (7.350-7.450) 05/18/21 12:50 ABG pCO2 43.3 mm Hg 05/18/21 12:50 ABG pO2 79.6 mm Hg (80.0-90.0) L 05/18/21 12:50 ABG HCO3 28.0 mmol/L (20.0-26.0) H 05/18/21 12:50 ABG O2 Saturation 97.0 % (95.0-99.0) 05/18/21 12:50 ABG O2 Content 8.4 (0.0-44) 05/18/21 12:50 ABG Base Excess 3.3 mmol/L (-2.0-3.0) H 05/18/21 12:50 ABG Hemoglobin 6.2 gm/dl (14.0-18.0) L 05/18/21 12:50 ABG Carboxyhemoglobin 1.5 % (0.0-5.0) 05/18/21 12:50 ABG Methemoglobin 0.4 % (0.0-1.5) 05/18/21 12:50 Oxyhemoglobin 95.2 % (95.0-99.0) 05/18/21 12:50 FiO2 40 % 05/18/21 12:50 Sodium 137 mmol/L (137-145) 05/20/21 05:14 Potassium 4.3 mmol/L (3.6-5.0) 05/20/21 05:14 Chloride 100.7 mmol/L (98-107) 05/20/21 05:14 Carbon Dioxide 25 mmol/L (22-30) 05/20/21 05:14 Anion Gap 16 mmol/L 05/20/21 05:14 BUN 31 mg/dL (9-20) H 05/20/21 05:14 Creatinine 2.1 mg/dL (0.8-1.3) H 05/20/21 05:14 Estimated GFR 33 ml/min 05/20/21 05:14 BUN/Creatinine Ratio 15 % 05/20/21 05:14 Glucose 130 mg/dL (75-100) H 05/20/21 05:14 POC Glucose 152 mg/dL (70-105) H 05/20/21 11:10 Lactic Acid 0.90 mmol/L (0.7-2.0) 05/20/21 09:17 Calcium 8.9 mg/dL (8.4-10.2) 05/20/21 05:14 Phosphorus 4.00 mg/dL (2.5-4.5) 05/14/21 15:44 Magnesium 2.00 mg/dL (1.7-2.3) 05/14/21 15:44 Ferritin 640.2 ng/mL (30.0-300.0) H 05/12/21 07:19 Total Bilirubin 0.60 mg/dL (0.1-1.2) 05/16/21 10:21 AST 34 units/L (5-40) 05/16/21 10:21 ALT 51 units/L (7-56) 05/16/21 10:21 Alkaline Phosphatase 74 units/L (35-129) 05/16/21 10:21 Lactate Dehydrogenase 314 units/L (91-180) H 05/12/21 07:19 Total Creatine Kinase 406 units/L (55-170) H 05/04/21 08:42 Troponin T 0.400 ng/mL (0.00-0.029) H* D 05/16/21 18:40 C-Reactive Protein 1.60 mg/dL (0.00-1.30) H 05/12/21 07:19 Total Protein 7.4 g/dL (6.3-8.2) 05/16/21 10:21 Albumin 3.1 g/dL (3.9-5) L 05/16/21 10:21 Albumin/Globulin Ratio 0.7 % 05/16/21 10:21 Triglycerides 144 mg/dL (2-149) 05/10/21 04:57 Cholesterol 140 mg/dL (50-199) 05/04/21 07:25 LDL Cholesterol Direct 89 mg/dL (50-130) 05/04/21 07:25 HDL Cholesterol 48 mg/dL (40-59) 05/04/21 07:25 Cholesterol/HDL Ratio 2.91 % 05/04/21 07:25 Procalcitonin 0.63 ng/mL (<0.15) 05/09/21 15:53 Urine Color Yellow (Yellow) 05/09/21 13:22 Urine Turbidity Turbid (Clear) 05/09/21 13:22 Urine pH 5.0 (5.0-7.0) 05/09/21 13:22 Ur Specific [place] 1.018 (1.003-1.030) 05/09/21 13:22 Urine Protein 100 mg/dl mg/dL (Negative) 05/09/21 13:22 Urine Glucose (UA) Neg mg/dL (Negative) 05/09/21 13:22 Urine Ketones Tr mg/dL (Negative) 05/09/21 13:22 Urine Blood Mod (Negative) 05/09/21 13:22 Urine Nitrite Neg (Negative) 05/09/21 13:22 Urine Bilirubin Neg (Negative) 05/09/21 13:22 Urine Urobilinogen < 2.0 mg/dL (<2.0) 05/09/21 13:22 Ur Leukocyte Esterase Mod (Negative) 05/09/21 13:22 Urine WBC (Auto) 25.0 /HPF (0.0-6.0) H 05/09/21 13:22 Urine RBC (Auto) 8.0 /HPF (0.0-6.0) 05/09/21 13:22 U Epithel Cells (Auto) < 1.0 /HPF (0-13.0) 05/09/21 13:22 Urine Bacteria (Auto) 1+ /HPF (Negative) 05/09/21 00:40 Uric Acid Crystals Few 05/09/21 00:40 Triple Phos Crystals 2+ 05/09/21 13:22 Amorphous Crystals Few 05/09/21 00:40 Urine Mucus Few /HPF 05/09/21 00:40 Urine Creatinine 100.8 mg/dL (0.1-20.0) H 05/10/21 11:03 Protein/Creatinin Ratio 0.42 05/10/21 11:03 Urine Sodium 61 mmol/L 05/05/21 09:57 Urine Total Protein 42 mg/dL (5-11.8) H 05/10/21 11:03 Urine Opiates Screen Negative 05/04/21 Unknown Urine Methadone Screen Negative 05/04/21 Unknown Ur Barbiturates Screen Negative 05/04/21 Unknown Ur Phencyclidine Scrn Negative 05/04/21 Unknown Ur Amphetamines Screen Positive 05/04/21 Unknown U Benzodiazepines Scrn Negative 05/04/21 Unknown Urine Cocaine Screen Negative 05/04/21 Unknown U Marijuana (THC) Screen Negative 05/04/21 Unknown Drugs of Abuse Note Disclamer 05/04/21 Unknown Immunofix Electrophor see below 05/05/21 03:40 AUDRA Screen Negative (Negative) 05/05/21 03:40 Proteinase 3 (PR3) Ab <1.0 AI (<1.0) 05/05/21 03:40 Myeloperoxidase Ab <1.0 AI (<1.0) 05/05/21 03:40 Complement C3 72 mg/dL (82-185) L 05/05/21 03:40 Complement C4 17 mg/dL (15-53) 05/05/21 03:40 Coronavirus (PCR) Positive (Negative) A 05/05/21 08:30 Hepatitis A IgM Ab Non-reactive (NonReactive) 05/05/21 03:40 Hep Bs Antigen Non-reactive (Negative) 05/05/21 03:40 Hep B Core IgM Ab Non-reactive (NonReactive) 05/05/21 03:40 Hepatitis C Antibody Reactive (NonReactive) A 05/05/21 03:40 Merino/IV: Voiding Method Condom Catheter Active Medications - Current Medications Current Medications: Generic Name Dose Route Start Last Admin Trade Name Freq PRN Reason Stop Dose Admin Acetaminophen 650 mg 05/04/21 12:34 05/20/21 11:15 Acetaminophen 325 Mg Tab PO 650 mg Q4H PRN Administration Pain MILD(1-3)/Fever >100.5/MARIA Acetaminophen 650 mg 05/07/21 16:00 05/11/21 16:25 Acetaminophen 650 Mg Rect Supp [place] 650 mg Q4H PRN Administration Pain, Mild (1-3) Amlodipine Besylate 5 mg 05/19/21 11:00 05/20/21 10:58 Amlodipine 5 Mg Tab PO 5 mg QDAY RISHI Administration Apixaban 5 mg 05/20/21 11:00 05/20/21 11:09 Apixaban 5 Mg Tab PO 5 mg Q12HR RISHI Administration Protocol Aspirin 81 mg 05/06/21 14:00 05/20/21 10:58 Aspirin 81 Mg Tab Chew PO 81 mg QDAY RISHI Administration Atorvastatin Calcium 40 mg 05/09/21 22:00 05/19/21 22:42 Atorvastatin 40 Mg Tab FEEDTUBE 40 mg QHS RISHI Administration Chlordiazepoxide HCl 50 mg 05/19/21 22:00 05/20/21 11:09 Chlordiazepoxide 25 Mg Cap PO 50 mg BID RISHI Administration Dextrose 0 ml 05/09/21 10:49 05/14/21 06:55 Dextrose 10% *Hypoglycemia IV 250 ml PRN PRN Administration Hypoglycemia Famotidine 10 mg 05/17/21 10:00 05/20/21 10:58 Famotidine 10 Mg Tab FEEDTUBE 10 mg BID RISHI Administration Haloperidol Lactate 5 mg 05/09/21 18:32 05/18/21 19:52 Haloperidol Lactate 5 Mg/1 Ml Inj IV 5 mg Q6H PRN Administration Agitation Hydralazine HCl 50 mg 05/04/21 14:00 05/20/21 05:14 Hydralazine 25 Mg Tab PO 50 mg Q8HR RISHI Administration Hydrophilic Ointment 1 applic 05/05/21 15:21 Lip Therapy Vaseline TP Q2HR PRN Dry Lips Cefepime HCl 2 gm in 100 mls @ 200 mls/hr 05/18/21 18:00 05/19/21 17:37 Cefepime/Ns 2 Gm/100 Ml IV 05/25/21 18:29 200 mls/hr Q24H RISHI Administration Protocol Insulin Human Lispro 0 unit 05/10/21 09:40 05/12/21 16:49 Insulin Lispro 100 Unit/Ml SUB-Q 2 unit Q6HR PRN Administration Hyperglycemia Protocol Labetalol HCl 10 mg 05/15/21 10:24 Labetalol 20 Mg/4 Ml Inj IV Q4H PRN sbp> 160. Metoprolol Tartrate 50 mg 05/10/21 14:00 05/20/21 11:02 Metoprolol Tartrate 50 Mg Tab FEEDTUBE 50 mg TID RISHI Administration Multi-Ingred Cream/Lotion/Oil/Oint 1 applic 05/05/21 15:21 Mineral Oil/Petrolatum, White Ophth Oint 3.5 Gm OU Q4HR PRN Dry Eye(s) Ondansetron HCl 4 mg 05/04/21 12:34 05/04/21 21:51 Ondansetron 4 Mg/2 Ml Inj IV 4 mg Q8H PRN Administration Nausea And Vomiting Quetiapine Fumarate 100 mg 05/19/21 22:00 05/20/21 11:02 Quetiapine 100 Mg Tab PO Not Given BID RISHI Senna/Docusate Sodium 1 tab 05/05/21 22:00 05/20/21 10:58 Sennosides/Docusate Sodium 8.6/50 Mg Tab FEEDTUBE 1 tab BID RISHI Administration Sodium Chloride 10 ml 05/04/21 22:00 05/20/21 11:03 Sodium Chloride 0.9% 10 Ml Flush Syringe IV 10 ml BID RISHI Administration Sodium Chloride 10 ml 05/04/21 12:34 05/06/21 13:59 Sodium Chloride 0.9% 10 Ml Flush Syringe IV 10 ml PRN PRN Administration LINE FLUSH Sodium Chloride 10 ml 05/09/21 09:46 Sodium Chloride 0.9% 50 Ml Ivpb IV PRN PRN FLUSH Nutrition/Malnutrition Assess - Dietary Evaluation Nutrition/Malnutrition Findings: Nutrition Notes Start: 05/05/21 16:15 Freq: Status: Active Protocol: Document 05/16/21 10:32 ROSAURA (Rec: 05/16/21 10:48 ROSAURA [id number]) Nutrition Notes Initial or Follow up Reassessment Current Diagnosis Acute Kidney Injury, Hypertension,Heart Failure, Respiratory Failure Other Pertinent Diagnosis Severe COVID-19 pneu, metabolic encephalopathy, polysubstance dependence Current Diet TF - Promote at 60ml/hr Labs/Tests Reviewed Pertinent Medications Lasix, Heparin gtt Height 5 ft 7 in Weight 81.647 kg [place] Body Weight (kg) 67.27 BMI 28.1 Weight Status Overweight Subjective/Other Information Pt extubated on 05/13, however, was re-intubated this am sec to resp distress. Percent of energy/protein needs met: 75% energy 92% pro Minimum of two criteria No #1 Nutrition Diagnosis Inadequate oral intake Diagnosis Progress(for reassessment Continues documentation) Is patient on ventilator? Yes Is Patient Ambulatory and/or Out of Bed No REE-([facility]-confined to bed) 1302.603 Calculation Used for Recommendations [facility] Additional Notes Pro needs 1.2-2g/k-163g/ day Fluid needs 1ml/kcal Nutrition Intervention Nutrition Support: Continue Promote at 60ml/hr with 200ml water flush q4 until hypernatremia resolved. When Na lab is WNL, reduce water flush to 50ml q4h. Kcal 1,440 Protein (gm) 90 Carbohydrates (gm) 187 Fat (gm) 37 Fluid (mL) 1,208 Fiber (gm) 0 Goal #1 TF tolerance Goal #2 TF to meet at least 75% energy and pro needs Follow-Up By: 05/20/21 Additional Comments F/U: TF tolerance, Na lab/ water flushes, BG lab/need for reduced CHO formula, vent status
--- NOTE | 2021-05-20 14:50 | Progress Note ---
Assessment and Plan Cultures: Blood culture 05/07/2021 no growth so far Blood culture 05/10/2021 no growth so far Sputum culture 05/16/2021 Enterobacter A/P: 56 yo M PMHx smoking, a fin, HTN, medication non-compliance #Severe COVID-19 pneumonia: Patient presented with a week of symptoms, chest x- ray with diffuse bilateral infiltrates, admission O2 sats decreased on room air. Inflammatory markers elevated #Acute hypoxemic respiratory failure: Likely secondary to COVID-19 infection. Currently on the vent #VAP: Cultures with Enterobacter #YE: Renally dose medications Recommendations: -Dexamethasone 6 mg IV/PO daily for 10 days -Not a candidate for remdesivir -Obtain q48-72h inflammatory markers - ferritin, Ddimer, CRP, LDH -Continue cefepime given sensitivities from Enterobacter; planned 8 days for VAP -If remains persistently febrile over the weekend please escalate to meropenem. -Anticoagulation per hospital protocol -Proning as able Thank you for the consult, we will continue to follow. Roque Bacon MD [facility] ([facility]) O: [phone] F: [phone] Subjective Date of service: 05/20/21 Principal diagnosis: NSTEMI Interval history: Febrile to 1-1.7 with a white count 19.7. 3L NC Objective - Exam Narrative Exam: Physical exam deferred to reduce risk of transmission of COVID-19. Please refer to primary team's note. - Constitutional Vitals: Vital Signs Temp Pulse Resp BP Pulse Ox 101.4 F H 82 16 145/101 100 05/20/21 11:42 05/20/21 13:56 05/20/21 13:00 05/20/21 13:56 05/20/21 13:00 Temperature -Last 24 Hours Temperature 101.4 F Temperature 100.7 F Temperature 98.0 F Temperature 101.1 F Temperature 101.3 F Temperature 99 F - Labs CBC & Chem 7: 05/20/21 05:14 05/20/21 05:14 Labs: Abnormal lab results 05/19/21 05/19/21 05/19/21 Range/Units 16:33 19:36 23:47 WBC (4.5-11.0) K/mm3 RBC (3.65-5.03) M/mm3 Hgb (11.8-15.2) gm/dl Hct (35.5-45.6) % RDW (13.2-15.2) % APTT 72.5 H* (24.2-36.6) Sec. BUN (9-20) mg/dL Creatinine (0.8-1.3) mg/dL Glucose (75-100) mg/dL POC Glucose 131 H 122 H (70-105) mg/dL 05/20/21 05/20/21 05/20/21 Range/Units 05:14 05:14 06:12 WBC 19.7 H (4.5-11.0) K/mm3 RBC 3.19 L (3.65-5.03) M/mm3 Hgb 9.5 L (11.8-15.2) gm/dl Hct 29.9 L (35.5-45.6) % RDW 17.3 H (13.2-15.2) % APTT (24.2-36.6) Sec. BUN 31 H (9-20) mg/dL Creatinine 2.1 H (0.8-1.3) mg/dL Glucose 130 H (75-100) mg/dL POC Glucose 120 H (70-105) mg/dL 05/20/21 Range/Units 11:10 WBC (4.5-11.0) K/mm3 RBC (3.65-5.03) M/mm3 Hgb (11.8-15.2) gm/dl Hct (35.5-45.6) % RDW (13.2-15.2) % APTT (24.2-36.6) Sec. BUN (9-20) mg/dL Creatinine (0.8-1.3) mg/dL Glucose (75-100) mg/dL POC Glucose 152 H (70-105) mg/dL
[2021-05-20] MEDS: CEFEPIME/NS 2 GM/100 ML 2 GM/100 ML BAG IV SCH (17:22)
--- NOTE | 2021-05-20 17:36 | XRay Report ---
CHEST 1 VIEW 05/20/2021 5:13 PM INDICATION / CLINICAL INFORMATION: respiratory distress. COMPARISON: 05/17/2021. FINDINGS: SUPPORT DEVICES: Feeding tube in satisfactory position. HEART / MEDIASTINUM: Stable cardiomegaly. LUNGS / PLEURA: New mild opacity at the right base. Aeration has decreased. No pneumothorax. ADDITIONAL FINDINGS: No significant additional findings. IMPRESSION: Suspect developing right basilar pneumonia. Signer Name: Carter Bill MD Signed: 05/20/2021 5:31 PM Workstation Name: [id number]
--- NOTE | 2021-05-20 19:31 | Progress Note ---
Assessment and Plan 56-year-old male with a past medical history of smoking, A. fib, hypertension, and chronic medication noncompliance and homelessness presents to the hospital with complaints of dyspnea exertion x1 month progressively worsening for last 3 days. Patient also having intermittent left-sided chest tightness with activity. Patient complains of a persistent cough without fever. He is unvaccinated for COVID. Patient was admitted here August 2020 for bilateral pneumonia with hypoxia and was COVID-negative at that time. Patient was seen in the ED April 12 for chest pain and subsequently discharged with a refill his medications. Patient never filled the prescriptions and states he has not taking any of his meds for the past year because he cannot afford medications. He denies previous history of stress test. Patient denies any cough or cold- like symptoms. No headache or visual disturbances. Patient denies any associated shortness of breath or diaphoresis. Patients Goodman virus PCR positive. Patients D dimer 2730.67 Patient treated with decadron,I/V heparin, famotidine. Patient sleeping at this time. On BIPAP 18/8, rate 22, FIO2 40% and O2 saturation running 100%. Patient has slight increase in work of breathing. Patient febrile. Has leukocytosis. Blood pressure 117/84, Pulse 85, Respirations 23 Chest xray done 05/12/21 reported Increased pulmonary interstitial prominence and opacities in bilateral lower lungs with left effusion No pneumothorax. Venous doppler studies of legs 05/11/21 reported Acute DVT in the right peroneal veins. Chest xray done 05/20/21 reported Suspect developing right basilar pneumonia. Patient presently on Apixaban, famotidine and Cefepime. Patient is on tube feeding. I spent critical care time of 35 minutes, reviewing the chart, examine the patient, review chest xray and lab results, talking to the respiratory therapy and nursing staff and work out plan of treatment in this critically ill patient. - Patient Problems (1) Acute hypoxemic respiratory failure Current Visit: No Status: Acute Plan to address problem: BIPAP 18/8, rate 22, FIO2 40%. Continue Apixaban. Continue Famotidine. Albuterol inhaler 2 puffs po qid. (2) Bilateral pneumonia Current Visit: No Status: Acute Plan to address problem: Patient is on Cefepime. (3) ARF (acute renal failure) Current Visit: Yes Status: Acute Plan to address problem: Management as per Nephrology. (4) Elevated d-dimer Current Visit: Yes Status: Acute Plan to address problem: Patient is on Apixaban (5) Right leg DVT Current Visit: Yes Status: Acute Plan to address problem: Patient is on Apixaban. (6) NSTEMI (non-ST elevated myocardial infarction) Current Visit: Yes Status: Acute Plan to address problem: Management as per cardiology. (7) Polysubstance abuse Current Visit: Yes Status: Acute Plan to address problem: Management as per primary care. (8) Hypertension Current Visit: Yes Status: Chronic Plan to address problem: Management as per primary care. (9) Coronavirus infection Current Visit: Yes Status: Acute Plan to address problem: Patient was on decadron, I/V heparin Management as per Infectious disease specialists. Subjective Date of service: 05/20/21 Principal diagnosis: NSTEMI Interval history: 56-year-old male with a past medical history of smoking, A. fib, hypertension, and chronic medication noncompliance and homelessness presents to the hospital with complaints of dyspnea exertion x1 month progressively worsening for last 3 days. Patient also having intermittent left-sided chest tightness with activity. Patient complains of a persistent cough without fever. He is unvaccinated for COVID. Patient was admitted here August 2020 for bilateral pneumonia with hypoxia and was COVID-negative at that time. Patient was seen in the ED April 12 for chest pain and subsequently discharged with a refill his medications. Patient never filled the prescriptions and states he has not taking any of his meds for the past year because he cannot afford medications. He denies previous history of stress test. Patient denies any cough or cold- like symptoms. No headache or visual disturbances. Patient denies any associated shortness of breath or diaphoresis. Patients Goodman virus PCR positive. Patients D dimer 2730.67 Patient treated with decadron,I/V heparin, famotidine. Patient sleeping at this time. On BIPAP 18/8, rate 22, FIO2 40% and O2 saturation running 100%. Patient has slight increase in work of breathing. Patient febrile. Has leukocytosis. Blood pressure 117/84, Pulse 85, Respirations 23 Chest xray done 05/12/21 reported Increased pulmonary interstitial prominence and opacities in bilateral lower lungs with left effusion No pneumothorax. Venous doppler studies of legs 05/11/21 reported Acute DVT in the right peroneal veins. Chest xray done 05/20/21 reported Suspect developing right basilar pneumonia. Patient presently on Apixaban, famotidine and Cefepime. Patient is on tube feeding. Objective Vital Signs - 12hr 05/20/21 05/20/21 05/20/21 08:00 08:02 09:00 Temperature 100.7 F H Pulse Rate 83 87 Pulse Rate [ 68 From Monitor] Respiratory 47 H 48 H Rate Blood Pressure 152/97 146/107 O2 Sat by Pulse 98 98 96 Oximetry 05/20/21 05/20/21 05/20/21 10:00 10:58 11:00 Temperature Pulse Rate 100 H Pulse Rate [ From Monitor] Respiratory Rate Blood Pressure 163/112 160/110 160/110 O2 Sat by Pulse 97 96 Oximetry 05/20/21 05/20/21 05/20/21 11:02 11:42 12:00 Temperature 101.4 F H Pulse Rate 100 H 78 Pulse Rate [ 72 From Monitor] Respiratory 23 Rate Blood Pressure 150/110 159/110 O2 Sat by Pulse 95 Oximetry 05/20/21 05/20/21 05/20/21 13:00 13:56 14:00 Temperature Pulse Rate 76 82 83 Pulse Rate [ From Monitor] Respiratory 16 56 H Rate Blood Pressure 145/101 145/101 143/98 O2 Sat by Pulse 100 Oximetry 05/20/21 05/20/21 05/20/21 15:00 16:00 17:00 Temperature Pulse Rate 76 77 82 Pulse Rate [ 75 From Monitor] Respiratory 52 H 52 H 20 Rate Blood Pressure 125/86 108/80 116/71 O2 Sat by Pulse 99 95 92 Oximetry 05/20/21 05/20/21 18:00 18:06 Temperature Pulse Rate 86 87 Pulse Rate [ From Monitor] Respiratory 36 H 39 H Rate Blood Pressure 120/88 O2 Sat by Pulse 97 Oximetry Constitutional: no acute distress, asleep, other (Sleeping on BIPAP.) Eyes: non-icteric ENT: oropharynx moist Neck: supple, no lymphadenopathy, no JVD Effort: normal Ascultation: Bilateral: diminished breath sounds, rhonchi Percussion: Bilateral: not dull Cardiovascular: irregular rhythm, other (S1,S2) Gastrointestinal: normoactive bowel sounds, soft, non-tender, non-distended Integumentary: normal Extremities: no cyanosis, no edema, pulses normal Neurologic: non-focal exam, pupils equal and round, unable to assess (sedated) Psychiatric: other (Patient sleeping on BIPAP.) CBC and BMP: 05/21/21 03:12 05/21/21 03:12 ABG, PT/INR, D-dimer: ABG ABG pH 7.428 pH Units (7.350-7.450) 05/18/21 12:50 ABG pCO2 43.3 mm Hg 05/18/21 12:50 ABG pO2 79.6 mm Hg (80.0-90.0) L 05/18/21 12:50 ABG O2 Saturation 97.0 % (95.0-99.0) 05/18/21 12:50 PT/INR, D-dimer PT 13.6 Sec. (12.2-14.9) 05/19/21 19:36 INR 0.94 (0.87-1.13) 05/19/21 19:36 D-Dimer 2730.61 ng/mlDDU (0-234) H 05/12/21 07:19 Abnormal lab findings: Abnormal Labs 05/04/21 05/04/21 05/04/21 07:25 07:25 07:25 WBC 12.9 H RBC 3.04 L Hgb 9.5 L Hct 28.4 L MCV MCHC RDW 15.4 H Lymph % (Auto) 11.4 L [place] % (Auto) 10.1 H Lymph # (Auto) [place] # (Auto) 1.3 H Seg Neutrophils % 78.0 H Seg Neuts % (Manual) Lymphocytes % (Manual) Monocytes % (Manual) Seg Neutrophils # 10.0 H Seg Neutrophils # Man Lymphocytes # (Manual) Monocytes # (Manual) PT 15.1 H APTT D-Dimer Heparin Anti-Xa Level ABG pH ABG pO2 ABG HCO3 ABG O2 Saturation ABG Base Excess ABG Hemoglobin Sodium 135 L Potassium Chloride Carbon Dioxide BUN 65 H Creatinine 3.4 H Glucose 118 H POC Glucose Calcium Ferritin Total Bilirubin 1.50 H AST 519 H ALT 475 H Lactate Dehydrogenase Total Creatine Kinase Troponin T 1.300 H* C-Reactive Protein Albumin Urine WBC (Auto) Urine Creatinine Urine Total Protein Complement C3 Coronavirus (PCR) Hepatitis C Antibody 05/04/21 05/04/21 05/04/21 07:25 08:42 08:42 WBC RBC Hgb Hct MCV MCHC RDW Lymph % (Auto) [place] % (Auto) Lymph # (Auto) [place] # (Auto) Seg Neutrophils % Seg Neuts % (Manual) Lymphocytes % (Manual) Monocytes % (Manual) Seg Neutrophils # Seg Neutrophils # Man Lymphocytes # (Manual) Monocytes # (Manual) PT APTT D-Dimer 579.49 H Heparin Anti-Xa Level ABG pH ABG pO2 ABG HCO3 ABG O2 Saturation ABG Base Excess ABG Hemoglobin Sodium Potassium Chloride Carbon Dioxide BUN Creatinine Glucose POC Glucose Calcium Ferritin Total Bilirubin AST ALT Lactate Dehydrogenase Total Creatine Kinase 406 H Troponin T 1.230 H* C-Reactive Protein Albumin Urine WBC (Auto) Urine Creatinine Urine Total Protein Complement C3 Coronavirus (PCR) Hepatitis C Antibody 05/04/21 05/04/21 05/04/21 10:13 13:34 18:14 WBC RBC Hgb 8.8 L Hct 26.6 L MCV MCHC RDW Lymph % (Auto) [place] % (Auto) Lymph # (Auto) [place] # (Auto) Seg Neutrophils % Seg Neuts % (Manual) Lymphocytes % (Manual) Monocytes % (Manual) Seg Neutrophils # Seg Neutrophils # Man Lymphocytes # (Manual) Monocytes # (Manual) PT APTT D-Dimer Heparin Anti-Xa Level < 0.10 L ABG pH ABG pO2 ABG HCO3 ABG O2 Saturation ABG Base Excess ABG Hemoglobin Sodium Potassium Chloride Carbon Dioxide BUN Creatinine Glucose POC Glucose Calcium Ferritin Total Bilirubin AST ALT Lactate Dehydrogenase Total Creatine Kinase Troponin T 1.400 H* C-Reactive Protein Albumin Urine WBC (Auto) Urine Creatinine Urine Total Protein Complement C3 Coronavirus (PCR) Hepatitis C Antibody 05/05/21 05/05/21 05/05/21 03:40 03:40 03:40 WBC RBC Hgb Hct MCV MCHC RDW Lymph % (Auto) [place] % (Auto) Lymph # (Auto) [place] # (Auto) Seg Neutrophils % Seg Neuts % (Manual) Lymphocytes % (Manual) Monocytes % (Manual) Seg Neutrophils # Seg Neutrophils # Man Lymphocytes # (Manual) Monocytes # (Manual) PT APTT D-Dimer Heparin Anti-Xa Level 0.11 L ABG pH ABG pO2 ABG HCO3 ABG O2 Saturation ABG Base Excess ABG Hemoglobin Sodium Potassium 3.3 L Chloride Carbon Dioxide BUN 59 H Creatinine 2.6 H Glucose 139 H POC Glucose Calcium Ferritin Total Bilirubin AST ALT Lactate Dehydrogenase Total Creatine Kinase Troponin T C-Reactive Protein Albumin Urine WBC (Auto) Urine Creatinine Urine Total Protein Complement C3 Coronavirus (PCR) Hepatitis C Antibody Reactive A 05/05/21 05/05/21 05/05/21 03:40 08:30 09:57 WBC RBC Hgb Hct MCV MCHC RDW Lymph % (Auto) [place] % (Auto) Lymph # (Auto) [place] # (Auto) Seg Neutrophils % Seg Neuts % (Manual) Lymphocytes % (Manual) Monocytes % (Manual) Seg Neutrophils # Seg Neutrophils # Man Lymphocytes # (Manual) Monocytes # (Manual) PT APTT D-Dimer Heparin Anti-Xa Level ABG pH ABG pO2 ABG HCO3 ABG O2 Saturation ABG Base Excess ABG Hemoglobin Sodium Potassium Chloride Carbon Dioxide BUN Creatinine Glucose POC Glucose Calcium Ferritin Total Bilirubin AST ALT Lactate Dehydrogenase Total Creatine Kinase Troponin T C-Reactive Protein Albumin Urine WBC (Auto) Urine Creatinine 100.8 H Urine Total Protein Complement C3 72 L Coronavirus (PCR) Positive A Hepatitis C Antibody 05/05/21 05/05/21 05/05/21 11:28 17:00 19:51 WBC RBC Hgb Hct MCV MCHC RDW Lymph % (Auto) [place] % (Auto) Lymph # (Auto) [place] # (Auto) Seg Neutrophils % Seg Neuts % (Manual) Lymphocytes % (Manual) Monocytes % (Manual) Seg Neutrophils # Seg Neutrophils # Man Lymphocytes # (Manual) Monocytes # (Manual) PT APTT D-Dimer Heparin Anti-Xa Level 0.10 L 0.22 L ABG pH 7.304 L ABG pO2 140.8 H ABG HCO3 ABG O2 Saturation ABG Base Excess -2.1 L ABG Hemoglobin 10.2 L Sodium Potassium Chloride Carbon Dioxide BUN Creatinine Glucose POC Glucose Calcium Ferritin Total Bilirubin AST ALT Lactate Dehydrogenase Total Creatine Kinase Troponin T C-Reactive Protein Albumin Urine WBC (Auto) Urine Creatinine Urine Total Protein Complement C3 Coronavirus (PCR) Hepatitis C Antibody 05/06/21 05/06/21 05/06/21 03:47 06:15 17:53 WBC RBC Hgb 9.0 L Hct 27.8 L MCV MCHC RDW Lymph % (Auto) [place] % (Auto) Lymph # (Auto) [place] # (Auto) Seg Neutrophils % Seg Neuts % (Manual) Lymphocytes % (Manual) Monocytes % (Manual) Seg Neutrophils # Seg Neutrophils # Man Lymphocytes # (Manual) Monocytes # (Manual) PT APTT D-Dimer Heparin Anti-Xa Level 0.10 L ABG pH ABG pO2 143.5 H ABG HCO3 ABG O2 Saturation ABG Base Excess -2.4 L ABG Hemoglobin 6.9 L Sodium Potassium Chloride Carbon Dioxide BUN Creatinine Glucose POC Glucose Calcium Ferritin Total Bilirubin AST ALT Lactate Dehydrogenase Total Creatine Kinase Troponin T C-Reactive Protein Albumin Urine WBC (Auto) Urine Creatinine Urine Total Protein Complement C3 Coronavirus (PCR) Hepatitis C Antibody 05/07/21 05/07/21 05/07/21 00:07 03:22 03:45 WBC RBC Hgb Hct MCV MCHC RDW Lymph % (Auto) [place] % (Auto) Lymph # (Auto) [place] # (Auto) Seg Neutrophils % Seg Neuts % (Manual) Lymphocytes % (Manual) Monocytes % (Manual) Seg Neutrophils # Seg Neutrophils # Man Lymphocytes # (Manual) Monocytes # (Manual) PT APTT D-Dimer Heparin Anti-Xa Level < 0.10 L ABG pH ABG pO2 104.3 H ABG HCO3 ABG O2 Saturation ABG Base Excess -2.6 L ABG Hemoglobin 9.1 L Sodium Potassium Chloride 107.1 H Carbon Dioxide 20 L BUN 56 H Creatinine 2.9 H Glucose POC Glucose Calcium Ferritin Total Bilirubin AST ALT Lactate Dehydrogenase Total Creatine Kinase Troponin T C-Reactive Protein Albumin Urine WBC (Auto) Urine Creatinine Urine Total Protein Complement C3 Coronavirus (PCR) Hepatitis C Antibody 05/07/21 05/07/21 05/07/21 07:44 16:28 22:41 WBC RBC Hgb Hct MCV MCHC RDW Lymph % (Auto) [place] % (Auto) Lymph # (Auto) [place] # (Auto) Seg Neutrophils % Seg Neuts % (Manual) Lymphocytes % (Manual) Monocytes % (Manual) Seg Neutrophils # Seg Neutrophils # Man Lymphocytes # (Manual) Monocytes # (Manual) PT APTT D-Dimer Heparin Anti-Xa Level < 0.10 L 0.10 L < 0.10 L ABG pH ABG pO2 ABG HCO3 ABG O2 Saturation ABG Base Excess ABG Hemoglobin Sodium Potassium Chloride Carbon Dioxide BUN Creatinine Glucose POC Glucose Calcium Ferritin Total Bilirubin AST ALT Lactate Dehydrogenase Total Creatine Kinase Troponin T C-Reactive Protein Albumin Urine WBC (Auto) Urine Creatinine Urine Total Protein Complement C3 Coronavirus (PCR) Hepatitis C Antibody 05/08/21 05/08/21 05/08/21 03:25 04:34 07:30 WBC 12.4 H RBC 3.02 L Hgb 9.5 L Hct 29.2 L MCV 97 H MCHC RDW 16.7 H Lymph % (Auto) 8.1 L [place] % (Auto) 11.0 H Lymph # (Auto) 1.0 L [place] # (Auto) 1.4 H Seg Neutrophils % 80.1 H Seg Neuts % (Manual) Lymphocytes % (Manual) Monocytes % (Manual) Seg Neutrophils # 9.9 H Seg Neutrophils # Man Lymphocytes # (Manual) Monocytes # (Manual) PT APTT D-Dimer Heparin Anti-Xa Level ABG pH ABG pO2 139.0 H ABG HCO3 ABG O2 Saturation ABG Base Excess ABG Hemoglobin 8.8 L Sodium Potassium Chloride 110.5 H Carbon Dioxide BUN 59 H Creatinine 2.8 H Glucose 103 H POC Glucose Calcium Ferritin Total Bilirubin AST ALT 327 H Lactate Dehydrogenase Total Creatine Kinase Troponin T C-Reactive Protein Albumin 3.1 L Urine WBC (Auto) Urine Creatinine Urine Total Protein Complement C3 Coronavirus (PCR) Hepatitis C Antibody 05/09/21 05/09/21 05/09/21 04:10 04:20 04:20 WBC 11.7 H RBC 2.79 L Hgb 8.7 L Hct 26.5 L MCV 95 H MCHC RDW 16.2 H Lymph % (Auto) [place] % (Auto) Lymph # (Auto) [place] # (Auto) Seg Neutrophils % Seg Neuts % (Manual) Lymphocytes % (Manual) Monocytes % (Manual) Seg Neutrophils # Seg Neutrophils # Man Lymphocytes # (Manual) Monocytes # (Manual) PT APTT D-Dimer Heparin Anti-Xa Level ABG pH ABG pO2 161.6 H ABG HCO3 ABG O2 Saturation ABG Base Excess ABG Hemoglobin 8.3 L Sodium 151 H Potassium Chloride 114.5 H Carbon Dioxide 21 L BUN 57 H Creatinine 2.4 H Glucose POC Glucose Calcium Ferritin Total Bilirubin AST ALT 210 H Lactate Dehydrogenase Total Creatine Kinase Troponin T C-Reactive Protein Albumin 2.9 L Urine WBC (Auto) Urine Creatinine Urine Total Protein Complement C3 Coronavirus (PCR) Hepatitis C Antibody 05/09/21 05/09/21 05/09/21 09:48 09:48 13:22 WBC 11.6 H RBC 3.00 L Hgb 9.0 L Hct 28.4 L MCV MCHC RDW 15.9 H Lymph % (Auto) 5.9 L [place] % (Auto) 8.9 H Lymph # (Auto) 0.7 L [place] # (Auto) 1.0 H Seg Neutrophils % 84.3 H Seg Neuts % (Manual) Lymphocytes % (Manual) Monocytes % (Manual) Seg Neutrophils # 9.8 H Seg Neutrophils # Man Lymphocytes # (Manual) Monocytes # (Manual) PT APTT D-Dimer Heparin Anti-Xa Level ABG pH ABG pO2 ABG HCO3 ABG O2 Saturation ABG Base Excess ABG Hemoglobin Sodium Potassium Chloride Carbon Dioxide BUN Creatinine Glucose POC Glucose Calcium Ferritin Total Bilirubin AST ALT Lactate Dehydrogenase Total Creatine Kinase Troponin T C-Reactive Protein 8.70 H Albumin Urine WBC (Auto) 25.0 H Urine Creatinine Urine Total Protein Complement C3 Coronavirus (PCR) Hepatitis C Antibody 05/09/21 05/09/21 05/10/21 15:20 18:16 04:57 WBC RBC 2.87 L Hgb 8.8 L Hct 27.0 L MCV MCHC RDW 15.9 H Lymph % (Auto) [place] % (Auto) Lymph # (Auto) [place] # (Auto) Seg Neutrophils % Seg Neuts % (Manual) Lymphocytes % (Manual) Monocytes % (Manual) Seg Neutrophils # Seg Neutrophils # Man Lymphocytes # (Manual) Monocytes # (Manual) PT APTT D-Dimer Heparin Anti-Xa Level ABG pH ABG pO2 102.0 H ABG HCO3 ABG O2 Saturation ABG Base Excess -2.8 L ABG Hemoglobin 9.0 L Sodium Potassium Chloride Carbon Dioxide BUN Creatinine Glucose POC Glucose 130 H Calcium Ferritin Total Bilirubin AST ALT Lactate Dehydrogenase Total Creatine Kinase Troponin T C-Reactive Protein Albumin Urine WBC (Auto) Urine Creatinine Urine Total Protein Complement C3 Coronavirus (PCR) Hepatitis C Antibody 05/10/21 05/10/21 05/10/21 04:57 04:57 04:57 WBC RBC Hgb Hct MCV MCHC RDW Lymph % (Auto) [place] % (Auto) Lymph # (Auto) [place] # (Auto) Seg Neutrophils % Seg Neuts % (Manual) Lymphocytes % (Manual) Monocytes % (Manual) Seg Neutrophils # Seg Neutrophils # Man Lymphocytes # (Manual) Monocytes # (Manual) PT APTT D-Dimer 1546.78 H Heparin Anti-Xa Level ABG pH ABG pO2 ABG HCO3 ABG O2 Saturation ABG Base Excess ABG Hemoglobin Sodium 148 H Potassium Chloride 114.9 H Carbon Dioxide 21 L BUN 57 H Creatinine 2.3 H Glucose 157 H POC Glucose Calcium Ferritin 888.2 H Total Bilirubin AST ALT Lactate Dehydrogenase 289 H Total Creatine Kinase Troponin T C-Reactive Protein 6.80 H Albumin Urine WBC (Auto) Urine Creatinine Urine Total Protein Complement C3 Coronavirus (PCR) Hepatitis C Antibody 05/10/21 05/10/21 05/10/21 05:09 08:04 11:03 WBC RBC Hgb Hct MCV MCHC RDW Lymph % (Auto) [place] % (Auto) Lymph # (Auto) [place] # (Auto) Seg Neutrophils % Seg Neuts % (Manual) Lymphocytes % (Manual) Monocytes % (Manual) Seg Neutrophils # Seg Neutrophils # Man Lymphocytes # (Manual) Monocytes # (Manual) PT APTT D-Dimer Heparin Anti-Xa Level ABG pH 7.473 H ABG pO2 114.6 H ABG HCO3 ABG O2 Saturation ABG Base Excess ABG Hemoglobin 9.5 L Sodium Potassium Chloride Carbon Dioxide BUN Creatinine Glucose POC Glucose 152 H Calcium Ferritin Total Bilirubin AST ALT Lactate Dehydrogenase Total Creatine Kinase Troponin T C-Reactive Protein Albumin Urine WBC (Auto) Urine Creatinine 100.8 H Urine Total Protein 42 H Complement C3 Coronavirus (PCR) Hepatitis C Antibody 05/10/21 05/10/21 05/10/21 13:07 18:01 23:31 WBC RBC Hgb Hct MCV MCHC RDW Lymph % (Auto) [place] % (Auto) Lymph # (Auto) [place] # (Auto) Seg Neutrophils % Seg Neuts % (Manual) Lymphocytes % (Manual) Monocytes % (Manual) Seg Neutrophils # Seg Neutrophils # Man Lymphocytes # (Manual) Monocytes # (Manual) PT APTT D-Dimer Heparin Anti-Xa Level ABG pH ABG pO2 ABG HCO3 ABG O2 Saturation ABG Base Excess ABG Hemoglobin Sodium Potassium Chloride Carbon Dioxide BUN Creatinine Glucose POC Glucose 150 H 189 H 142 H Calcium Ferritin Total Bilirubin AST ALT Lactate Dehydrogenase Total Creatine Kinase Troponin T C-Reactive Protein Albumin Urine WBC (Auto) Urine Creatinine Urine Total Protein Complement C3 Coronavirus (PCR) Hepatitis C Antibody 05/10/21 05/11/21 05/11/21 Unknown 05:25 06:53 WBC RBC Hgb Hct MCV MCHC RDW Lymph % (Auto) [place] % (Auto) Lymph # (Auto) [place] # (Auto) Seg Neutrophils % Seg Neuts % (Manual) Lymphocytes % (Manual) Monocytes % (Manual) Seg Neutrophils # Seg Neutrophils # Man Lymphocytes # (Manual) Monocytes # (Manual) PT APTT D-Dimer Heparin Anti-Xa Level ABG pH ABG pO2 126.6 H ABG HCO3 ABG O2 Saturation ABG Base Excess ABG Hemoglobin 9.2 L Sodium 150 H Potassium Chloride 116.6 H Carbon Dioxide 21 L BUN 62 H Creatinine 2.5 H Glucose 142 H POC Glucose 163 H Calcium Ferritin Total Bilirubin AST ALT Lactate Dehydrogenase Total Creatine Kinase Troponin T C-Reactive Protein Albumin Urine WBC (Auto) Urine Creatinine Urine Total Protein Complement C3 Coronavirus (PCR) Hepatitis C Antibody 05/11/21 05/11/21 05/11/21 06:53 11:06 13:51 WBC RBC 3.07 L Hgb 9.3 L Hct 29.0 L MCV 95 H MCHC RDW 16.1 H Lymph % (Auto) [place] % (Auto) Lymph # (Auto) [place] # (Auto) Seg Neutrophils % Seg Neuts % (Manual) Lymphocytes % (Manual) Monocytes % (Manual) Seg Neutrophils # Seg Neutrophils # Man Lymphocytes # (Manual) Monocytes # (Manual) PT APTT D-Dimer Heparin Anti-Xa Level ABG pH ABG pO2 74.9 L ABG HCO3 ABG O2 Saturation ABG Base Excess -3.3 L ABG Hemoglobin 10.8 L Sodium Potassium Chloride Carbon Dioxide BUN Creatinine Glucose POC Glucose 145 H Calcium Ferritin Total Bilirubin AST ALT Lactate Dehydrogenase Total Creatine Kinase Troponin T C-Reactive Protein Albumin Urine WBC (Auto) Urine Creatinine Urine Total Protein Complement C3 Coronavirus (PCR) Hepatitis C Antibody 05/11/21 05/11/21 05/11/21 14:43 14:43 15:47 WBC RBC Hgb 9.2 L Hct 29.7 L MCV MCHC RDW Lymph % (Auto) [place] % (Auto) Lymph # (Auto) [place] # (Auto) Seg Neutrophils % Seg Neuts % (Manual) Lymphocytes % (Manual) Monocytes % (Manual) Seg Neutrophils # Seg Neutrophils # Man Lymphocytes # (Manual) Monocytes # (Manual) PT 15.6 H APTT D-Dimer Heparin Anti-Xa Level ABG pH ABG pO2 ABG HCO3 ABG O2 Saturation ABG Base Excess ABG Hemoglobin Sodium Potassium Chloride Carbon Dioxide BUN Creatinine Glucose POC Glucose 137 H Calcium Ferritin Total Bilirubin AST ALT Lactate Dehydrogenase Total Creatine Kinase Troponin T C-Reactive Protein Albumin Urine WBC (Auto) Urine Creatinine Urine Total Protein Complement C3 Coronavirus (PCR) Hepatitis C Antibody 05/12/21 05/12/21 05/12/21 00:04 05:07 07:19 WBC 11.9 H RBC 3.00 L Hgb 9.1 L Hct 28.9 L MCV 96 H MCHC RDW 16.7 H Lymph % (Auto) 11.5 L [place] % (Auto) 8.2 H Lymph # (Auto) [place] # (Auto) 1.0 H Seg Neutrophils % 80.0 H Seg Neuts % (Manual) Lymphocytes % (Manual) Monocytes % (Manual) Seg Neutrophils # 9.6 H Seg Neutrophils # Man Lymphocytes # (Manual) Monocytes # (Manual) PT APTT D-Dimer Heparin Anti-Xa Level ABG pH ABG pO2 ABG HCO3 ABG O2 Saturation ABG Base Excess ABG Hemoglobin Sodium Potassium Chloride Carbon Dioxide BUN Creatinine Glucose POC Glucose 121 H 117 H Calcium Ferritin Total Bilirubin AST ALT Lactate Dehydrogenase Total Creatine Kinase Troponin T C-Reactive Protein Albumin Urine WBC (Auto) Urine Creatinine Urine Total Protein Complement C3 Coronavirus (PCR) Hepatitis C Antibody 05/12/21 05/12/21 05/12/21 07:19 07:19 07:19 WBC RBC Hgb Hct MCV MCHC RDW Lymph % (Auto) [place] % (Auto) Lymph # (Auto) [place] # (Auto) Seg Neutrophils % Seg Neuts % (Manual) Lymphocytes % (Manual) Monocytes % (Manual) Seg Neutrophils # Seg Neutrophils # Man Lymphocytes # (Manual) Monocytes # (Manual) PT APTT D-Dimer 2730.61 H Heparin Anti-Xa Level ABG pH ABG pO2 ABG HCO3 ABG O2 Saturation ABG Base Excess ABG Hemoglobin Sodium 146 H Potassium 5.1 H Chloride 112.4 H Carbon Dioxide 21 L BUN 61 H Creatinine 2.2 H Glucose 136 H POC Glucose Calcium 8.1 L Ferritin 640.2 H Total Bilirubin AST ALT Lactate Dehydrogenase 314 H Total Creatine Kinase Troponin T C-Reactive Protein 1.60 H Albumin Urine WBC (Auto) Urine Creatinine Urine Total Protein Complement C3 Coronavirus (PCR) Hepatitis C Antibody 05/12/21 05/12/21 05/12/21 11:10 16:10 16:38 WBC RBC Hgb Hct MCV MCHC RDW Lymph % (Auto) [place] % (Auto) Lymph # (Auto) [place] # (Auto) Seg Neutrophils % Seg Neuts % (Manual) Lymphocytes % (Manual) Monocytes % (Manual) Seg Neutrophils # Seg Neutrophils # Man Lymphocytes # (Manual) Monocytes # (Manual) PT APTT D-Dimer Heparin Anti-Xa Level 0.20 L ABG pH ABG pO2 ABG HCO3 ABG O2 Saturation ABG Base Excess ABG Hemoglobin Sodium Potassium Chloride Carbon Dioxide BUN Creatinine Glucose POC Glucose 131 H 157 H Calcium Ferritin Total Bilirubin AST ALT Lactate Dehydrogenase Total Creatine Kinase Troponin T C-Reactive Protein Albumin Urine WBC (Auto) Urine Creatinine Urine Total Protein Complement C3 Coronavirus (PCR) Hepatitis C Antibody 05/12/21 05/13/21 05/13/21 23:30 00:12 04:20 WBC RBC Hgb Hct MCV MCHC RDW Lymph % (Auto) [place] % (Auto) Lymph # (Auto) [place] # (Auto) Seg Neutrophils % Seg Neuts % (Manual) Lymphocytes % (Manual) Monocytes % (Manual) Seg Neutrophils # Seg Neutrophils # Man Lymphocytes # (Manual) Monocytes # (Manual) PT APTT D-Dimer Heparin Anti-Xa Level 0.13 L ABG pH ABG pO2 ABG HCO3 ABG O2 Saturation ABG Base Excess ABG Hemoglobin Sodium Potassium Chloride 111.2 H Carbon Dioxide BUN 53 H Creatinine 1.9 H Glucose 121 H POC Glucose 115 H Calcium 8.3 L Ferritin Total Bilirubin AST ALT Lactate Dehydrogenase Total Creatine Kinase Troponin T C-Reactive Protein Albumin Urine WBC (Auto) Urine Creatinine Urine Total Protein Complement C3 Coronavirus (PCR) Hepatitis C Antibody 05/13/21 05/13/21 05/13/21 04:20 11:15 11:29 WBC 13.1 H RBC 2.86 L Hgb 8.5 L Hct 26.9 L MCV MCHC RDW 15.7 H Lymph % (Auto) [place] % (Auto) Lymph # (Auto) [place] # (Auto) Seg Neutrophils % Seg Neuts % (Manual) Lymphocytes % (Manual) Monocytes % (Manual) Seg Neutrophils # Seg Neutrophils # Man Lymphocytes # (Manual) Monocytes # (Manual) PT APTT D-Dimer Heparin Anti-Xa Level ABG pH 7.456 H ABG pO2 106.0 H ABG HCO3 ABG O2 Saturation ABG Base Excess ABG Hemoglobin 7.1 L Sodium Potassium Chloride Carbon Dioxide BUN Creatinine Glucose POC Glucose 121 H Calcium Ferritin Total Bilirubin AST ALT Lactate Dehydrogenase Total Creatine Kinase Troponin T C-Reactive Protein Albumin Urine WBC (Auto) Urine Creatinine Urine Total Protein Complement C3 Coronavirus (PCR) Hepatitis C Antibody 05/13/21 05/13/21 05/14/21 16:38 23:43 04:26 WBC 14.2 H RBC 3.11 L Hgb 9.4 L Hct 29.3 L MCV MCHC RDW 15.4 H Lymph % (Auto) [place] % (Auto) Lymph # (Auto) [place] # (Auto) Seg Neutrophils % Seg Neuts % (Manual) Lymphocytes % (Manual) Monocytes % (Manual) Seg Neutrophils # Seg Neutrophils # Man Lymphocytes # (Manual) Monocytes # (Manual) PT APTT D-Dimer Heparin Anti-Xa Level ABG pH ABG pO2 ABG HCO3 ABG O2 Saturation ABG Base Excess ABG Hemoglobin Sodium Potassium Chloride Carbon Dioxide BUN Creatinine Glucose POC Glucose 119 H 55 L Calcium Ferritin Total Bilirubin AST ALT Lactate Dehydrogenase Total Creatine Kinase Troponin T C-Reactive Protein Albumin Urine WBC (Auto) Urine Creatinine Urine Total Protein Complement C3 Coronavirus (PCR) Hepatitis C Antibody 05/14/21 05/14/21 05/14/21 04:26 05:26 06:51 WBC RBC Hgb Hct MCV MCHC RDW Lymph % (Auto) [place] % (Auto) Lymph # (Auto) [place] # (Auto) Seg Neutrophils % Seg Neuts % (Manual) Lymphocytes % (Manual) Monocytes % (Manual) Seg Neutrophils # Seg Neutrophils # Man Lymphocytes # (Manual) Monocytes # (Manual) PT APTT D-Dimer Heparin Anti-Xa Level ABG pH ABG pO2 ABG HCO3 ABG O2 Saturation ABG Base Excess ABG Hemoglobin Sodium Potassium 3.4 L Chloride 107.6 H Carbon Dioxide BUN 42 H Creatinine 1.9 H Glucose POC Glucose 51 L 62 L Calcium Ferritin Total Bilirubin AST ALT Lactate Dehydrogenase Total Creatine Kinase Troponin T C-Reactive Protein Albumin Urine WBC (Auto) Urine Creatinine Urine Total Protein Complement C3 Coronavirus (PCR) Hepatitis C Antibody 05/14/21 05/14/21 05/14/21 09:58 12:05 12:08 WBC RBC Hgb Hct MCV MCHC RDW Lymph % (Auto) [place] % (Auto) Lymph # (Auto) [place] # (Auto) Seg Neutrophils % Seg Neuts % (Manual) Lymphocytes % (Manual) Monocytes % (Manual) Seg Neutrophils # Seg Neutrophils # Man Lymphocytes # (Manual) Monocytes # (Manual) PT APTT D-Dimer Heparin Anti-Xa Level ABG pH ABG pO2 ABG HCO3 ABG O2 Saturation ABG Base Excess ABG Hemoglobin Sodium Potassium 3.4 L Chloride Carbon Dioxide BUN 36 H Creatinine 1.8 H Glucose 133 H POC Glucose 60 L 127 H Calcium Ferritin Total Bilirubin AST ALT Lactate Dehydrogenase Total Creatine Kinase Troponin T C-Reactive Protein Albumin Urine WBC (Auto) Urine Creatinine Urine Total Protein Complement C3 Coronavirus (PCR) Hepatitis C Antibody 05/14/21 05/14/21 05/15/21 17:20 23:37 05:34 WBC RBC Hgb Hct MCV MCHC RDW Lymph % (Auto) [place] % (Auto) Lymph # (Auto) [place] # (Auto) Seg Neutrophils % Seg Neuts % (Manual) Lymphocytes % (Manual) Monocytes % (Manual) Seg Neutrophils # Seg Neutrophils # Man Lymphocytes # (Manual) Monocytes # (Manual) PT APTT D-Dimer Heparin Anti-Xa Level ABG pH ABG pO2 ABG HCO3 ABG O2 Saturation ABG Base Excess ABG Hemoglobin Sodium Potassium Chloride Carbon Dioxide BUN Creatinine Glucose POC Glucose 144 H 115 H 119 H Calcium Ferritin Total Bilirubin AST ALT Lactate Dehydrogenase Total Creatine Kinase Troponin T C-Reactive Protein Albumin Urine WBC (Auto) Urine Creatinine Urine Total Protein Complement C3 Coronavirus (PCR) Hepatitis C Antibody 05/15/21 05/15/21 05/15/21 07:26 07:26 14:35 WBC 13.8 H RBC 3.32 L Hgb 10.0 L Hct 31.2 L MCV MCHC RDW 16.0 H Lymph % (Auto) [place] % (Auto) Lymph # (Auto) [place] # (Auto) Seg Neutrophils % Seg Neuts % (Manual) Lymphocytes % (Manual) Monocytes % (Manual) Seg Neutrophils # Seg Neutrophils # Man Lymphocytes # (Manual) Monocytes # (Manual) PT APTT D-Dimer Heparin Anti-Xa Level ABG pH ABG pO2 ABG HCO3 ABG O2 Saturation ABG Base Excess ABG Hemoglobin Sodium 149 H D Potassium 3.5 L Chloride 113.2 H Carbon Dioxide BUN 29 H Creatinine 1.8 H Glucose 113 H POC Glucose 143 H Calcium Ferritin Total Bilirubin AST ALT Lactate Dehydrogenase Total Creatine Kinase Troponin T C-Reactive Protein Albumin Urine WBC (Auto) Urine Creatinine Urine Total Protein Complement C3 Coronavirus (PCR) Hepatitis C Antibody 05/16/21 05/16/21 05/16/21 06:12 08:43 10:05 WBC RBC Hgb Hct MCV MCHC RDW Lymph % (Auto) [place] % (Auto) Lymph # (Auto) [place] # (Auto) Seg Neutrophils % Seg Neuts % (Manual) Lymphocytes % (Manual) Monocytes % (Manual) Seg Neutrophils # Seg Neutrophils # Man Lymphocytes # (Manual) Monocytes # (Manual) PT APTT D-Dimer Heparin Anti-Xa Level 0.21 L ABG pH ABG pO2 240.8 H ABG HCO3 ABG O2 Saturation 99.4 H ABG Base Excess -2.6 L ABG Hemoglobin 10.7 L Sodium Potassium Chloride Carbon Dioxide BUN Creatinine Glucose POC Glucose 34 L Calcium Ferritin Total Bilirubin AST ALT Lactate Dehydrogenase Total Creatine Kinase Troponin T C-Reactive Protein Albumin Urine WBC (Auto) Urine Creatinine Urine Total Protein Complement C3 Coronavirus (PCR) Hepatitis C Antibody 05/16/21 05/16/21 05/16/21 10:21 10:21 13:14 WBC 27.6 H RBC Hgb 11.4 L Hct MCV 99 H MCHC 30 L RDW 18.1 H Lymph % (Auto) [place] % (Auto) Lymph # (Auto) [place] # (Auto) Seg Neutrophils % Seg Neuts % (Manual) 83.0 H Lymphocytes % (Manual) 4.0 L Monocytes % (Manual) 9.0 H Seg Neutrophils # Seg Neutrophils # Man 22.9 H Lymphocytes # (Manual) 1.1 L Monocytes # (Manual) 2.5 H PT APTT D-Dimer Heparin Anti-Xa Level ABG pH ABG pO2 ABG HCO3 ABG O2 Saturation ABG Base Excess ABG Hemoglobin Sodium Potassium Chloride 108.8 H Carbon Dioxide 17 L BUN 26 H Creatinine 1.9 H Glucose 141 H POC Glucose Calcium Ferritin Total Bilirubin AST ALT Lactate Dehydrogenase Total Creatine Kinase Troponin T 0.503 H* C-Reactive Protein Albumin 3.1 L Urine WBC (Auto) Urine Creatinine Urine Total Protein Complement C3 Coronavirus (PCR) Hepatitis C Antibody 05/16/21 05/17/21 05/17/21 18:40 00:02 04:52 WBC RBC Hgb 8.8 L Hct 28.5 L D MCV MCHC RDW Lymph % (Auto) [place] % (Auto) Lymph # (Auto) [place] # (Auto) Seg Neutrophils % Seg Neuts % (Manual) Lymphocytes % (Manual) Monocytes % (Manual) Seg Neutrophils # Seg Neutrophils # Man Lymphocytes # (Manual) Monocytes # (Manual) PT APTT D-Dimer Heparin Anti-Xa Level ABG pH ABG pO2 ABG HCO3 ABG O2 Saturation ABG Base Excess ABG Hemoglobin Sodium Potassium Chloride Carbon Dioxide BUN Creatinine Glucose POC Glucose 114 H Calcium Ferritin Total Bilirubin AST ALT Lactate Dehydrogenase Total Creatine Kinase Troponin T 0.400 H* D C-Reactive Protein Albumin Urine WBC (Auto) Urine Creatinine Urine Total Protein Complement C3 Coronavirus (PCR) Hepatitis C Antibody 05/17/21 05/17/21 05/17/21 04:52 05:15 06:50 WBC RBC Hgb Hct MCV MCHC RDW Lymph % (Auto) [place] % (Auto) Lymph # (Auto) [place] # (Auto) Seg Neutrophils % Seg Neuts % (Manual) Lymphocytes % (Manual) Monocytes % (Manual) Seg Neutrophils # Seg Neutrophils # Man Lymphocytes # (Manual) Monocytes # (Manual) PT APTT D-Dimer Heparin Anti-Xa Level ABG pH ABG pO2 193.7 H ABG HCO3 27.7 H ABG O2 Saturation 99.2 H ABG Base Excess 3.4 H ABG Hemoglobin 9.2 L Sodium 146 H Potassium Chloride 110.3 H Carbon Dioxide BUN 33 H Creatinine 2.3 H Glucose 120 H POC Glucose 109 H Calcium Ferritin Total Bilirubin AST ALT Lactate Dehydrogenase Total Creatine Kinase Troponin T C-Reactive Protein Albumin Urine WBC (Auto) Urine Creatinine Urine Total Protein Complement C3 Coronavirus (PCR) Hepatitis C Antibody 05/17/21 05/17/21 05/17/21 10:30 11:33 15:35 WBC RBC Hgb Hct MCV MCHC RDW Lymph % (Auto) [place] % (Auto) Lymph # (Auto) [place] # (Auto) Seg Neutrophils % Seg Neuts % (Manual) Lymphocytes % (Manual) Monocytes % (Manual) Seg Neutrophils # Seg Neutrophils # Man Lymphocytes # (Manual) Monocytes # (Manual) PT APTT D-Dimer Heparin Anti-Xa Level ABG pH 7.457 H ABG pO2 162.5 H 103.7 H ABG HCO3 27.7 H 27.5 H ABG O2 Saturation ABG Base Excess 3.6 H ABG Hemoglobin 10.1 L 11.5 L Sodium Potassium Chloride Carbon Dioxide BUN Creatinine Glucose POC Glucose 122 H Calcium Ferritin Total Bilirubin AST ALT Lactate Dehydrogenase Total Creatine Kinase Troponin T C-Reactive Protein Albumin Urine WBC (Auto) Urine Creatinine Urine Total Protein Complement C3 Coronavirus (PCR) Hepatitis C Antibody 05/17/21 05/17/21 05/17/21 16:21 18:18 23:29 WBC RBC Hgb 9.6 L Hct 30.3 L MCV MCHC RDW Lymph % (Auto) [place] % (Auto) Lymph # (Auto) [place] # (Auto) Seg Neutrophils % Seg Neuts % (Manual) Lymphocytes % (Manual) Monocytes % (Manual) Seg Neutrophils # Seg Neutrophils # Man Lymphocytes # (Manual) Monocytes # (Manual) PT APTT D-Dimer Heparin Anti-Xa Level ABG pH ABG pO2 ABG HCO3 ABG O2 Saturation ABG Base Excess ABG Hemoglobin Sodium Potassium Chloride Carbon Dioxide BUN Creatinine Glucose POC Glucose 133 H 111 H Calcium Ferritin Total Bilirubin AST ALT Lactate Dehydrogenase Total Creatine Kinase Troponin T C-Reactive Protein Albumin Urine WBC (Auto) Urine Creatinine Urine Total Protein Complement C3 Coronavirus (PCR) Hepatitis C Antibody 05/18/21 05/18/21 05/18/21 04:15 04:15 05:01 WBC 16.8 H RBC 3.03 L Hgb 8.9 L Hct 28.7 L MCV 95 H MCHC 31 L RDW 16.4 H Lymph % (Auto) [place] % (Auto) Lymph # (Auto) [place] # (Auto) Seg Neutrophils % Seg Neuts % (Manual) Lymphocytes % (Manual) Monocytes % (Manual) Seg Neutrophils # Seg Neutrophils # Man Lymphocytes # (Manual) Monocytes # (Manual) PT APTT D-Dimer Heparin Anti-Xa Level ABG pH ABG pO2 ABG HCO3 ABG O2 Saturation ABG Base Excess ABG Hemoglobin Sodium Potassium Chloride Carbon Dioxide BUN 40 H Creatinine 2.1 H Glucose 115 H POC Glucose 113 H Calcium Ferritin Total Bilirubin AST ALT Lactate Dehydrogenase Total Creatine Kinase Troponin T C-Reactive Protein Albumin Urine WBC (Auto) Urine Creatinine Urine Total Protein Complement C3 Coronavirus (PCR) Hepatitis C Antibody 05/18/21 05/18/21 05/19/21 11:18 12:50 05:23 WBC 18.5 H RBC 3.31 L Hgb 9.9 L Hct 31.1 L MCV MCHC RDW 16.9 H Lymph % (Auto) [place] % (Auto) Lymph # (Auto) [place] # (Auto) Seg Neutrophils % Seg Neuts % (Manual) Lymphocytes % (Manual) Monocytes % (Manual) Seg Neutrophils # Seg Neutrophils # Man Lymphocytes # (Manual) Monocytes # (Manual) PT APTT D-Dimer Heparin Anti-Xa Level ABG pH ABG pO2 79.6 L ABG HCO3 28.0 H ABG O2 Saturation ABG Base Excess 3.3 H ABG Hemoglobin 6.2 L Sodium Potassium Chloride Carbon Dioxide BUN Creatinine Glucose POC Glucose 129 H Calcium Ferritin Total Bilirubin AST ALT Lactate Dehydrogenase Total Creatine Kinase Troponin T C-Reactive Protein Albumin Urine WBC (Auto) Urine Creatinine Urine Total Protein Complement C3 Coronavirus (PCR) Hepatitis C Antibody 05/19/21 05/19/21 05/19/21 05:23 05:23 11:24 WBC RBC Hgb Hct MCV MCHC RDW Lymph % (Auto) [place] % (Auto) Lymph # (Auto) [place] # (Auto) Seg Neutrophils % Seg Neuts % (Manual) Lymphocytes % (Manual) Monocytes % (Manual) Seg Neutrophils # Seg Neutrophils # Man Lymphocytes # (Manual) Monocytes # (Manual) PT APTT D-Dimer Heparin Anti-Xa Level ABG pH ABG pO2 ABG HCO3 ABG O2 Saturation ABG Base Excess ABG Hemoglobin Sodium Potassium Chloride Carbon Dioxide BUN 35 H 34 H Creatinine 2.0 H 2.1 H Glucose POC Glucose 111 H Calcium Ferritin Total Bilirubin AST ALT Lactate Dehydrogenase Total Creatine Kinase Troponin T C-Reactive Protein Albumin Urine WBC (Auto) Urine Creatinine Urine Total Protein Complement C3 Coronavirus (PCR) Hepatitis C Antibody 05/19/21 05/19/21 05/19/21 16:33 19:36 23:47 WBC RBC Hgb Hct MCV MCHC RDW Lymph % (Auto) [place] % (Auto) Lymph # (Auto) [place] # (Auto) Seg Neutrophils % Seg Neuts % (Manual) Lymphocytes % (Manual) Monocytes % (Manual) Seg Neutrophils # Seg Neutrophils # Man Lymphocytes # (Manual) Monocytes # (Manual) PT APTT 72.5 H* D-Dimer Heparin Anti-Xa Level ABG pH ABG pO2 ABG HCO3 ABG O2 Saturation ABG Base Excess ABG Hemoglobin Sodium Potassium Chloride Carbon Dioxide BUN Creatinine Glucose POC Glucose 131 H 122 H Calcium Ferritin Total Bilirubin AST ALT Lactate Dehydrogenase Total Creatine Kinase Troponin T C-Reactive Protein Albumin Urine WBC (Auto) Urine Creatinine Urine Total Protein Complement C3 Coronavirus (PCR) Hepatitis C Antibody 05/20/21 05/20/21 05/20/21 05:14 05:14 06:12 WBC 19.7 H RBC 3.19 L Hgb 9.5 L Hct 29.9 L MCV MCHC RDW 17.3 H Lymph % (Auto) [place] % (Auto) Lymph # (Auto) [place] # (Auto) Seg Neutrophils % Seg Neuts % (Manual) Lymphocytes % (Manual) Monocytes % (Manual) Seg Neutrophils # Seg Neutrophils # Man Lymphocytes # (Manual) Monocytes # (Manual) PT APTT D-Dimer Heparin Anti-Xa Level ABG pH ABG pO2 ABG HCO3 ABG O2 Saturation ABG Base Excess ABG Hemoglobin Sodium Potassium Chloride Carbon Dioxide BUN 31 H Creatinine 2.1 H Glucose 130 H POC Glucose 120 H Calcium Ferritin Total Bilirubin AST ALT Lactate Dehydrogenase Total Creatine Kinase Troponin T C-Reactive Protein Albumin Urine WBC (Auto) Urine Creatinine Urine Total Protein Complement C3 Coronavirus (PCR) Hepatitis C Antibody 05/20/21 05/20/21 11:10 18:12 WBC RBC Hgb Hct MCV MCHC RDW Lymph % (Auto) [place] % (Auto) Lymph # (Auto) [place] # (Auto) Seg Neutrophils % Seg Neuts % (Manual) Lymphocytes % (Manual) Monocytes % (Manual) Seg Neutrophils # Seg Neutrophils # Man Lymphocytes # (Manual) Monocytes # (Manual) PT APTT D-Dimer Heparin Anti-Xa Level ABG pH ABG pO2 ABG HCO3 ABG O2 Saturation ABG Base Excess ABG Hemoglobin Sodium Potassium Chloride Carbon Dioxide BUN Creatinine Glucose POC Glucose 152 H 137 H Calcium Ferritin Total Bilirubin AST ALT Lactate Dehydrogenase Total Creatine Kinase Troponin T C-Reactive Protein Albumin Urine WBC (Auto) Urine Creatinine Urine Total Protein Complement C3 Coronavirus (PCR) Hepatitis C Antibody Chest x-ray: report reviewed, image reviewed Additional Studies: CHEST 1 VIEW 05/20/2021 5:13 PM INDICATION / CLINICAL INFORMATION: respiratory distress. COMPARISON: 05/17/2021. FINDINGS: SUPPORT DEVICES: Feeding tube in satisfactory position. HEART / MEDIASTINUM: Stable cardiomegaly. LUNGS / PLEURA: New mild opacity at the right base. Aeration has decreased. No pneumothorax. ADDITIONAL FINDINGS: No significant additional findings. IMPRESSION: Suspect developing right basilar pneumonia. Allied health notes reviewed: RT
[2021-05-20] MEDS ORDERED: QUEtiapine 100 MG TAB PO SCH (22:00)
[2021-05-21] MEDS: ACETAMINOPHEN 325 MG TAB PO PRN ×2 (01:39→06:22)
[2021-05-21 03:43] LABS: Hemoglobin 7.7 gm/dl (11.8-15.2)
[2021-05-21 03:45] LABS: Hematocrit 24.2 % (35.5-45.6); Mean Corpuscular HGB Conc 32 % (32-34); Mean Corpuscular Volume 94 fl (84-94); Platelet Count 391 K/mm3 (140-440); Red Blood Count 2.58 M/mm3 (3.65-5.03); Red Cell Distribution Width 17.8 % (13.2-15.2)
[2021-05-21 04:02] LABS: Calcium 8.8 mg/dL (8.4-10.2)
[2021-05-21] MEDS: hydrALAZINE 25 MG TAB PO SCH ×3 (06:12→22:23)
[2021-05-21] MEDS: METOPROLOL TARTRATE 50 MG TAB FEEDTUBE SCH ×3 (08:50→22:24)
[2021-05-21] MEDS ORDERED: SODIUM CHLORIDE 0.9% 1000 ML 1,000 ML IV ONE (09:00)
[2021-05-21] MEDS: ASPIRIN 81 MG TAB CHEW PO SCH (09:13)
[2021-05-21] MEDS: chlordiazePOXIDE 25 MG CAP PO SCH ×2 (09:14→22:23)
[2021-05-21] MEDS: FAMOTIDINE 10 MG TAB FEEDTUBE SCH ×2 (09:14→22:24)
[2021-05-21] MEDS: SENNOSIDES/DOCUSATE SODIUM 8.6/50 MG TAB FEEDTUBE SCH ×2 (09:14→22:24)
[2021-05-21] MEDS: APIXABAN 5 MG TAB PO SCH ×2 (09:14→22:23)
--- NOTE | 2021-05-21 09:23 | Progress Note ---
Assessment and Plan Assessment and plan: This is a 56-year-old male with a nicotine abuse, A. fib, hypertension, and chronic medication noncompliance and homelessness who presented to emergency department on 05/04 with complaints of dyspnea on exertion for the past month worsening over the past 3 days, intermittent left-sided chest tightness with activity, and persistent cough without fever. Work-up in the emergency department revealed anemia, hyponatremia, elevated BUN/creatinine and transaminitis. Patient was admitted to the hospitalist service with acute kidney injury and accelerated hypertension. Hospital course to date 05/04/2021. Cardiology was considering patient for [employer]. However, patient with elevated creatinine therefore will hold off on cath evaluation. Nephrology consultation for acute kidney injury. Etiology likely secondary to vasomotor nephropathy/dehydration. We will start IV fluid hydration. Check renal ultrasound to rule out obstructive uropathy. We will resume home medications for the accelerated hypertension 05/05/2021. Echocardiogram reveals EF 35-40% with moderate concentric left ventricular hypertrophy. Moderate global hypokinesis of left ventricle. Mild mitral regurgitation. Mild pulmonary hypertension. Troponins are believed to be elevated in the setting of acute kidney injury. No beta-blockers due to cocaine use continue heparin and nitro drip. Continue CIWA protocol. Await urine studies 05/06/2021. Patient decompensated yesterday with worsening respiratory failure and difficulty to protect airway. Patient was breathing sonorously, and hypoxic. Patient was intubated and currently is on mechanical ventilation. Patient with AC mode ventilation rate of 20, tidal volume 450, FiO2 40% and PEEP of 6. COVID PCR testing on 05/05/2021 was found to be positive. Echocardiogram completed on this admission shows worsening EF from August 2020. Echocardiogram now reveals moderate concentric left ventricular hypertrophy with moderate global hypokinesis and EF of 35-40%. Mild pulmonary hypertension. 05/08: Continue current management, renal stable, LFTs stable and if improved will start on statin therapy. 05/09: Patient is febrile, will panculture, PSV today. CRP pending. Mucoid discharge noted from meatus which was sent for culture. Hypernatremia persists, free water flushes increased 05/10: PSV trial per CCM, T-max 102.3, given mildly elevated procalcitonin started on ceftriaxone 2 g every 24 for 2 days per ID. Overnight patient had atrial fibrillation which was treated with Cardizem drip and converted to sinus rhythm. Metoprolol p.o. increased to 3 times daily. 05/11: Patient still running fevers and if still febrile tomorrow will escalate to cefepime per ID as he is currently on ceftriaxone, CCM attempted PSV but patient became agitated and was switched back to pressure control. Lower extremity ultrasound shows acute DVT and started on heparin drip. Started on scheduled Librium. Patient remains with hypernatremia and elevated creatinine and on IV fluids. Free water flushes adjusted. Started on vancomycin today 05/12: Patient placed on pressure support trial without fentanyl, hypernatremia improving, hyperkalemia noted. Slight improvement to renal function. 05/13: Patient was extubated today, ID change antibiotics to Zosyn for Enterococcus, was started tapering Librium in the morning, renal function slightly improved. Possible transfer to floor tomorrow. ST evaluation for swallow ordered. 05/14: Patient became hypoglycemic overnight and started on dextrose IV fluids. Accu-Chek fingersticks have been low but on a.m. BMP patient blood glucose is 100. Other BMP pending. Feeding tube replaced due to need for enteral access and patient being severely confused. Renal functions remains the same. Upon confirmation will restart tube feedings, p.o. medications and free water flushes. 05/15: Remains confused/somnolent on my encounter. [facility] Remains hypertensive. Added amlodipine 10 mg NG and labetalol prn. ST eval today but doubt he will participate. Potassium replaced. Renal function improving overall, however, hypernatremic. Inc TF FWF to 250 cc q4hr. 05/16: Respiratory distress this AM, hypoxic in 60's not protecting airway. Required intubation, patient now ICU patient. Reduce fluid to FWF only, IVF d/c off jun. CXR ordered demonstrates pulmonary edema. Lasix 40 mg IV bid ordered. Troponin elevated, continue heparin gtt. Would recommend decreasing sedating me dications at this point, agree with librium taper. 05/17: Patient remains on the vent and sedated, RASS -3. Plan for possible sedation vacation today. D/w CCM plan to wean for possible extubation on the vent. 05/18: Tolerated 4hrs of sedation vacation yesterday, on low dose fentanyl this am. Patient is tolerating PST this am. Plan to wean off sedation and wean vent setting for possible extubation today. 05/19: s/p extubation now stable on 3L NC. Lethargic this am, will decreased Seroquel. Speech consult for swallow eval, continue enteral nutrition via NGT for now. Hypertensive throughout the night, Norvac added. Remains on heparin gtt for DVT, might need to transition to PO AC, will d/w CCM. Patient is stable for transfer to [facility] 05/20: Continue sepsis work up considering fever, aspiration precautions. Discussed with nursing staff will hold am seroquel. Continue tube feed. RENAL Function remains relatively stable, possible has peaked. 05/21: Patient seen and examined, resting but still with mild increase wob, CXR concerning with right lobar infiltrate, continue antibiotics, will give kayxalate in addition due to hyperkalemia, Will discuss with ID due to rising luekocytosis possible worsening sepsis. Assessment and Plan Acute hypoxic respiratory failure (worsened) -CCM consulted, appreciate recommendations -Intubated on 05/05 with 7.50 ETT at 20 over the lips in the ED and extubated 05/13 -Reintubated on 05/16; Exttubated on 05/18 -CCM consulted, appreciate recommendations -Aspiration precaution HOB above 30 -Continue O2 supplementation and wean as tolerated -Continue SPO2 monitoring for SPO2 goal above 92% Severe COVID-19 pneumonia/leukocytosis, Enterococcus in urine -Infectious disease consulted, appreciate recommendations -COVID-19 PCR positive -Continue droplet/precautions -Not a candidate for remdesivir given acute kidney injury -Dexamethasone for 10 days -Anticoagulation per hospital protocol -Trend COVID-19 from 2 markers (ferritin, D-dimer, CRP, LDH) -Continue IV Abx per ID Acute DVT -Bilateral lower extremity Doppler ultrasound shows acute DVT -On Heparin drip per protocol -Monitor for s/s of active bleeding -Trend CBC and Coags -Will D/W CCM for possible bridge to PO AC agent Acute kidney injury likely secondary to vasomotor nephropathy -Nephrology consulted, appreciate recommendations -Avoid nephrotoxic medications -Renally dose medication -Strict intake and output -FeNa indicates prerenal -Renal ultrasound completed: 1.7 hyper echoic mass within the left upper pole, Monitor for now follow-up with CT once stable Metabolic encephalopathy -Lethargic this am, has been off sedation for over 24hrs -Seroquel decreased -Continue Librium to prevent DTs -Maintain sleep-wake cycle -Monitor QTC -Avoid delirium -May need psych consult Hypertension; S/p hypertensive emergency -Cardiology on consult -Continue current antihypertensives therapy -Norvasc added for better control -Blood pressure monitoring per protocol -PRN Labetalol for SBP greater than 160 Heart failure reduced EF, cardiomyopathy, NSTEMI, paroxysmal atrial fibrillation -Continue beta-sylvia and aspirin -Resume statin therapy -Cardiology consulted, appreciate recommendations -Echo 05/04/2021-EF 35 to 40%. Moderate concentric LVH. Moderate global hypokinesis of left ventricle. Mild mitral regurgitation. Mild pulmonary hypertension. Echocardiogram reviewed (08/27/2020): LVEF is 50 to 55%. Mild to moderate concentric LVF. Severe diastolic dysfunction is present (restrictive filling). Right ventricle is mildly hypokinetic. RVSP is 48 mmHg. No valvular abnormalities. -S/p heparin drip for 24 hours -Patient had atrial fibrillation overnight on 05/10 and was treated with a Cardizem drip Polysubstance abuse, tobacco abuse -UDS positive for amphetamines -We will need cessation counseling when appropriate Transaminitis, h/o hepatitis C -Renal ultrasound showed incidental finding of cholelithiasis -Trend LFTs -Continue supportive management Anemia -Trend CBC -Transfuse for hemoglobin less than 7 DVT/ GI prophylaxis -Heparin gtt -PPI History Interval history: Patient seen and examined, still lethargic, marginal increase in work of breathing. Hospitalist Physical - Physical exam Narrative exam: General appearance: Present: Mild respiratory distress. - Neck Neck: Present: supple - Respiratory Respiratory: bilateral: rhonchi, wheezing (Scattered) - Cardiovascular Heart rate: 86 Rhythm: irregularly irregular - Extremities Extremities: no ischemia, pulses intact - Abdominal General gastrointestinal: soft, non-tender, normal bowel sounds - Integumentary Integumentary: Present: clear, warm, dry - Psychiatric Psychiatric: unable to examine - Neurologic Neurologic: other moves all extremity - Allied Health Allied health notes reviewed: nursing, case management - Constitutional Vitals: Temp Pulse Resp BP Pulse Ox 101.4 F H 82 40 H 100/72 100 05/21/21 04:00 05/21/21 08:15 05/21/21 08:15 05/21/21 08:15 05/21/21 08:15 General appearance: Present: no acute distress HEART Score - HEART Score EKG: Non-specific Age: 45-65 Risk factors: 1-2 risk factors Troponin: Troponin T 0.400 ng/mL (0.00-0.029) H* D 05/16/21 18:40 Troponin: 1-3x normal limit - Critical Actions Critical Actions: 4-6 pts:12-16.6% risk of adverse cardiac event. Should be admitted Results - Labs CBC & Chem 7: 05/21/21 03:12 05/21/21 03:12 Labs: Laboratory Last Values WBC 26.2 K/mm3 (4.5-11.0) H 05/21/21 03:12 RBC 2.58 M/mm3 (3.65-5.03) L 05/21/21 03:12 Hgb 7.7 gm/dl (11.8-15.2) L 05/21/21 03:12 Hct 24.2 % (35.5-45.6) L 05/21/21 03:12 MCV 94 fl (84-94) 05/21/21 03:12 MCH 30 pg (28-32) 05/21/21 03:12 MCHC 32 % (32-34) 05/21/21 03:12 RDW 17.8 % (13.2-15.2) H 05/21/21 03:12 Plt Count 391 K/mm3 (140-440) 05/21/21 03:12 Lymph % (Auto) Topographical Surveyor 05/16/21 10:21 [place] % (Auto) Topographical Surveyor 05/16/21 10:21 Eos % (Auto) Topographical Surveyor 05/16/21 10:21 Baso % (Auto) Topographical Surveyor 05/16/21 10:21 Lymph # (Auto) Topographical Surveyor 05/16/21 10:21 [place] # (Auto) Topographical Surveyor 05/16/21 10:21 Eos # (Auto) Topographical Surveyor 05/16/21 10:21 Baso # (Auto) Topographical Surveyor 05/16/21 10:21 Add Manual Diff Complete 05/16/21 10:21 Total Counted 100 05/16/21 10:21 Seg Neutrophils % Topographical Surveyor 05/16/21 10:21 Seg Neuts % (Manual) 83.0 % (40.0-70.0) H 05/16/21 10:21 Band Neutrophils % 2.0 % 05/16/21 10:21 Lymphocytes % (Manual) 4.0 % (13.4-35.0) L 05/16/21 10:21 Reactive Lymphs % (Man) 0 % 05/16/21 10:21 Monocytes % (Manual) 9.0 % (0.0-7.3) H 05/16/21 10:21 Eosinophils % (Manual) 0 % (0.0-4.3) 05/16/21 10:21 Basophils % (Manual) 0 % (0.0-1.8) 05/16/21 10:21 Metamyelocytes % 0 % 05/16/21 10:21 Myelocytes % 2.0 % 05/16/21 10:21 Promyelocytes % 0 % 05/16/21 10:21 Blast Cells % 0 % 05/16/21 10:21 Nucleated RBC % Not Reportable 05/16/21 10:21 Seg Neutrophils # Topographical Surveyor 05/16/21 10:21 Seg Neutrophils # Man 22.9 K/mm3 (1.8-7.7) H 05/16/21 10:21 Band Neutrophils # 0.6 K/mm3 05/16/21 10:21 Lymphocytes # (Manual) 1.1 K/mm3 (1.2-5.4) L 05/16/21 10:21 Abs React Lymphs (Man) 0.0 K/mm3 05/16/21 10:21 Monocytes # (Manual) 2.5 K/mm3 (0.0-0.8) H 05/16/21 10:21 Eosinophils # (Manual) 0.0 K/mm3 (0.0-0.4) 05/16/21 10:21 Basophils # (Manual) 0.0 K/mm3 (0.0-0.1) 05/16/21 10:21 Metamyelocytes # 0.0 K/mm3 05/16/21 10:21 Myelocytes # 0.6 K/mm3 05/16/21 10:21 Promyelocytes # 0.0 K/mm3 05/16/21 10:21 Blast Cells # 0.0 K/mm3 05/16/21 10:21 WBC Morphology Not Reportable 05/16/21 10:21 Hypersegmented Neuts Not Reportable 05/16/21 10:21 Hyposegmented Neuts Not Reportable 05/16/21 10:21 Hypogranular Neuts Not Reportable 05/16/21 10:21 Smudge Cells Not Reportable 05/16/21 10:21 Toxic Granulation Not Reportable 05/16/21 10:21 Toxic Vacuolation Not Reportable 05/16/21 10:21 Dohle Bodies Not Reportable 05/16/21 10:21 Pelger-Huet Anomaly Not Reportable 05/16/21 10:21 Jesse Rods Not Reportable 05/16/21 10:21 Platelet Estimate Consistent w auto 05/16/21 10:21 Clumped Platelets Few 05/16/21 10:21 Plt Clumps, EDTA Not Reportable 05/16/21 10:21 Large Platelets Not Reportable 05/16/21 10:21 Giant Platelets Not Reportable 05/16/21 10:21 Platelet Satelliting Not Reportable 05/16/21 10:21 Plt Morphology Comment Not Reportable 05/16/21 10:21 RBC Morphology Not Reportable 05/16/21 10:21 Dimorphic RBCs Not Reportable 05/16/21 10:21 Polychromasia Not Reportable 05/16/21 10:21 Hypochromasia Not Reportable 05/16/21 10:21 Poikilocytosis Not Reportable 05/16/21 10:21 Anisocytosis 1+ 05/16/21 10:21 Microcytosis Not Reportable 05/16/21 10:21 Macrocytosis Few 05/16/21 10:21 Spherocytes Not Reportable 05/16/21 10:21 Pappenheimer Bodies Not Reportable 05/16/21 10:21 Sickle Cells Not Reportable 05/16/21 10:21 Target Cells Not Reportable 05/16/21 10:21 Tear Drop Cells Not Reportable 05/16/21 10:21 Ovalocytes Not Reportable 05/16/21 10:21 Helmet Cells Not Reportable 05/16/21 10:21 [place] Bodies Not Reportable 05/16/21 10:21 [place] Rings Not Reportable 05/16/21 10:21 Alec Cells Not Reportable 05/16/21 10:21 Bite Cells Not Reportable 05/16/21 10:21 Crenated Cell Not Reportable 05/16/21 10:21 Elliptocytes Not Reportable 05/16/21 10:21 Acanthocytes (Spur) Not Reportable 05/16/21 10:21 Rouleaux Not Reportable 05/16/21 10:21 Hemoglobin C Crystals Not Reportable 05/16/21 10:21 Schistocytes Not Reportable 05/16/21 10:21 Malaria parasites Not Reportable 05/16/21 10:21 Tomi Bodies Not Reportable 05/16/21 10:21 Hem Pathologist Commnt No 05/16/21 10:21 PT 13.6 Sec. (12.2-14.9) 05/19/21 19:36 INR 0.94 (0.87-1.13) 05/19/21 19:36 APTT 72.5 Sec. (24.2-36.6) H* 05/19/21 19:36 D-Dimer 2730.61 ng/mlDDU (0-234) H 05/12/21 07:19 Heparin Anti-Xa Level 0.47 U.I./ml (0.3-0.7) 05/19/21 05:23 ABG pH 7.428 pH Units (7.350-7.450) 05/18/21 12:50 ABG pCO2 43.3 mm Hg 05/18/21 12:50 ABG pO2 79.6 mm Hg (80.0-90.0) L 05/18/21 12:50 ABG HCO3 28.0 mmol/L (20.0-26.0) H 05/18/21 12:50 ABG O2 Saturation 97.0 % (95.0-99.0) 05/18/21 12:50 ABG O2 Content 8.4 (0.0-44) 05/18/21 12:50 ABG Base Excess 3.3 mmol/L (-2.0-3.0) H 05/18/21 12:50 ABG Hemoglobin 6.2 gm/dl (14.0-18.0) L 05/18/21 12:50 ABG Carboxyhemoglobin 1.5 % (0.0-5.0) 05/18/21 12:50 ABG Methemoglobin 0.4 % (0.0-1.5) 05/18/21 12:50 Oxyhemoglobin 95.2 % (95.0-99.0) 05/18/21 12:50 FiO2 40 % 05/18/21 12:50 Sodium 133 mmol/L (137-145) L 05/21/21 03:12 Potassium 5.7 mmol/L (3.6-5.0) H D 05/21/21 03:12 Chloride 98.0 mmol/L (98-107) 05/21/21 03:12 Carbon Dioxide 21 mmol/L (22-30) L 05/21/21 03:12 Anion Gap 20 mmol/L 05/21/21 03:12 BUN 49 mg/dL (9-20) H 05/21/21 03:12 Creatinine 2.6 mg/dL (0.8-1.3) H 05/21/21 03:12 Estimated GFR 26 ml/min 05/21/21 03:12 BUN/Creatinine Ratio 19 % 05/21/21 03:12 Glucose 160 mg/dL (75-100) H 05/21/21 03:12 POC Glucose 118 mg/dL (70-105) H 05/21/21 05:53 Lactic Acid 0.90 mmol/L (0.7-2.0) 05/20/21 09:17 Calcium 8.8 mg/dL (8.4-10.2) 05/21/21 03:12 Phosphorus 4.00 mg/dL (2.5-4.5) 05/14/21 15:44 Magnesium 2.00 mg/dL (1.7-2.3) 05/14/21 15:44 Ferritin 640.2 ng/mL (30.0-300.0) H 05/12/21 07:19 Total Bilirubin 0.60 mg/dL (0.1-1.2) 05/16/21 10:21 AST 34 units/L (5-40) 05/16/21 10:21 ALT 51 units/L (7-56) 05/16/21 10:21 Alkaline Phosphatase 74 units/L (35-129) 05/16/21 10:21 Lactate Dehydrogenase 314 units/L (91-180) H 05/12/21 07:19 Total Creatine Kinase 406 units/L (55-170) H 05/04/21 08:42 Troponin T 0.400 ng/mL (0.00-0.029) H* D 05/16/21 18:40 C-Reactive Protein 1.60 mg/dL (0.00-1.30) H 05/12/21 07:19 Total Protein 7.4 g/dL (6.3-8.2) 05/16/21 10:21 Albumin 3.1 g/dL (3.9-5) L 05/16/21 10:21 Albumin/Globulin Ratio 0.7 % 05/16/21 10:21 Triglycerides 144 mg/dL (2-149) 05/10/21 04:57 Cholesterol 140 mg/dL (50-199) 05/04/21 07:25 LDL Cholesterol Direct 89 mg/dL (50-130) 05/04/21 07:25 HDL Cholesterol 48 mg/dL (40-59) 05/04/21 07:25 Cholesterol/HDL Ratio 2.91 % 05/04/21 07:25 Procalcitonin 0.63 ng/mL (<0.15) 05/09/21 15:53 Urine Color Yellow (Yellow) 05/09/21 13:22 Urine Turbidity Turbid (Clear) 05/09/21 13:22 Urine pH 5.0 (5.0-7.0) 05/09/21 13:22 Ur Specific [place] 1.018 (1.003-1.030) 05/09/21 13:22 Urine Protein 100 mg/dl mg/dL (Negative) 05/09/21 13:22 Urine Glucose (UA) Neg mg/dL (Negative) 05/09/21 13:22 Urine Ketones Tr mg/dL (Negative) 05/09/21 13:22 Urine Blood Mod (Negative) 05/09/21 13:22 Urine Nitrite Neg (Negative) 05/09/21 13:22 Urine Bilirubin Neg (Negative) 05/09/21 13:22 Urine Urobilinogen < 2.0 mg/dL (<2.0) 05/09/21 13:22 Ur Leukocyte Esterase Mod (Negative) 05/09/21 13:22 Urine WBC (Auto) 25.0 /HPF (0.0-6.0) H 05/09/21 13:22 Urine RBC (Auto) 8.0 /HPF (0.0-6.0) 05/09/21 13:22 U Epithel Cells (Auto) < 1.0 /HPF (0-13.0) 05/09/21 13:22 Urine Bacteria (Auto) 1+ /HPF (Negative) 05/09/21 00:40 Uric Acid Crystals Few 05/09/21 00:40 Triple Phos Crystals 2+ 05/09/21 13:22 Amorphous Crystals Few 05/09/21 00:40 Urine Mucus Few /HPF 05/09/21 00:40 Urine Creatinine 100.8 mg/dL (0.1-20.0) H 05/10/21 11:03 Protein/Creatinin Ratio 0.42 05/10/21 11:03 Urine Sodium 61 mmol/L 05/05/21 09:57 Urine Total Protein 42 mg/dL (5-11.8) H 05/10/21 11:03 Urine Opiates Screen Negative 05/04/21 Unknown Urine Methadone Screen Negative 05/04/21 Unknown Ur Barbiturates Screen Negative 05/04/21 Unknown Ur Phencyclidine Scrn Negative 05/04/21 Unknown Ur Amphetamines Screen Positive 05/04/21 Unknown U Benzodiazepines Scrn Negative 05/04/21 Unknown Urine Cocaine Screen Negative 05/04/21 Unknown U Marijuana (THC) Screen Negative 05/04/21 Unknown Drugs of Abuse Note Disclamer 05/04/21 Unknown Immunofix Electrophor see below 05/05/21 03:40 AUDRA Screen Negative (Negative) 05/05/21 03:40 Proteinase 3 (PR3) Ab <1.0 AI (<1.0) 05/05/21 03:40 Myeloperoxidase Ab <1.0 AI (<1.0) 05/05/21 03:40 Complement C3 72 mg/dL (82-185) L 05/05/21 03:40 Complement C4 17 mg/dL (15-53) 05/05/21 03:40 Coronavirus (PCR) Positive (Negative) A 05/05/21 08:30 Hepatitis A IgM Ab Non-reactive (NonReactive) 05/05/21 03:40 Hep Bs Antigen Non-reactive (Negative) 05/05/21 03:40 Hep B Core IgM Ab Non-reactive (NonReactive) 05/05/21 03:40 Hepatitis C Antibody Reactive (NonReactive) A 05/05/21 03:40 [place]/IV: Voiding Method Condom Catheter Active Medications - Current Medications Current Medications: Generic Name Dose Route Start Last Admin Trade Name Freq PRN Reason Stop Dose Admin Acetaminophen 650 mg 05/04/21 12:34 05/21/21 06:22 Acetaminophen 325 Mg Tab PO 650 mg Q4H PRN Administration Pain MILD(1-3)/Fever >100.5/MARIA Acetaminophen 650 mg 05/07/21 16:00 05/11/21 16:25 Acetaminophen 650 Mg Rect Supp NV 650 mg Q4H PRN Administration Pain, Mild (1-3) Apixaban 5 mg 05/20/21 11:00 05/21/21 09:14 Apixaban 5 Mg Tab PO 5 mg Q12HR RISHI Administration Protocol Aspirin 81 mg 05/06/21 14:00 05/21/21 09:13 Aspirin 81 Mg Tab Chew PO 81 mg QDAY RISHI Administration Atorvastatin Calcium 40 mg 05/09/21 22:00 05/20/21 21:11 Atorvastatin 40 Mg Tab FEEDTUBE 40 mg QHS RISHI Administration Chlordiazepoxide HCl 50 mg 05/19/21 22:00 05/21/21 09:14 Chlordiazepoxide 25 Mg Cap PO 50 mg BID RISHI Administration Dextrose 0 ml 05/09/21 10:49 05/14/21 06:55 Dextrose 10% *Hypoglycemia IV 250 ml PRN PRN Administration Hypoglycemia Famotidine 10 mg 05/17/21 10:00 05/21/21 09:14 Famotidine 10 Mg Tab FEEDTUBE 10 mg BID RISHI Administration Haloperidol Lactate 5 mg 05/09/21 18:32 05/18/21 19:52 Haloperidol Lactate 5 Mg/1 Ml Inj IV 5 mg Q6H PRN Administration Agitation Hydralazine HCl 50 mg 05/04/21 14:00 05/21/21 06:12 Hydralazine 25 Mg Tab PO Not Given Q8HR [facility] Hydrophilic Ointment 1 applic 05/05/21 15:21 Lip Therapy Vaseline TP Q2HR PRN Dry Lips Cefepime HCl 2 gm in 100 mls @ 200 mls/hr 05/18/21 18:00 05/20/21 17:22 Cefepime/Ns 2 Gm/100 Ml IV 05/25/21 18:29 200 mls/hr Q24H RISHI Administration Protocol Sodium Chloride 1,000 mls @ 999 mls/hr 05/21/21 09:00 05/21/21 08:41 Nacl 0.9% 1000 Ml IV 05/21/21 10:00 999 mls/hr BOLUS ONE Administration Insulin Human Lispro 0 unit 05/10/21 09:40 05/12/21 16:49 Insulin Lispro 100 Unit/Ml SUB-Q 2 unit Q6HR PRN Administration Hyperglycemia Protocol Labetalol HCl 10 mg 05/15/21 10:24 Labetalol 20 Mg/4 Ml Inj IV Q4H PRN sbp> 160. Metoprolol Tartrate 50 mg 05/10/21 14:00 05/21/21 08:50 Metoprolol Tartrate 50 Mg Tab FEEDTUBE Not Given TID RISHI Multi-Ingred Cream/Lotion/Oil/Oint 1 applic 05/05/21 15:21 Mineral Oil/Petrolatum, White Ophth Oint 3.5 Gm OU Q4HR PRN Dry Eye(s) Ondansetron HCl 4 mg 05/04/21 12:34 05/04/21 21:51 Ondansetron 4 Mg/2 Ml Inj IV 4 mg Q8H PRN Administration Nausea And Vomiting Quetiapine Fumarate 100 mg 05/20/21 22:00 05/20/21 21:11 Quetiapine 100 Mg Tab PO 100 mg QHS RISHI Administration Senna/Docusate Sodium 1 tab 05/05/21 22:00 05/21/21 09:14 Sennosides/Docusate Sodium 8.6/50 Mg Tab FEEDTUBE 1 tab BID RISHI Administration Sodium Chloride 10 ml 05/04/21 22:00 05/21/21 09:14 Sodium Chloride 0.9% 10 Ml Flush Syringe IV 10 ml BID RISHI Administration Sodium Chloride 10 ml 05/04/21 12:34 05/06/21 13:59 Sodium Chloride 0.9% 10 Ml Flush Syringe IV 10 ml PRN PRN Administration LINE FLUSH Sodium Chloride 10 ml 05/09/21 09:46 Sodium Chloride 0.9% 50 Ml Ivpb IV PRN PRN FLUSH Nutrition/Malnutrition Assess - Dietary Evaluation Nutrition/Malnutrition Findings: Nutrition Notes Start: 05/05/21 16:15 Freq: Status: Active Protocol: Document 05/20/21 15:29 ROSAURA (Rec: 05/20/21 15:34 ROSAURA [id number]) Nutrition Notes Initial or Follow up Reassessment Current Diagnosis Acute Kidney Injury, Hypertension,Heart Failure, Respiratory Failure Other Pertinent Diagnosis Severe COVID-19 pneu, metabolic encephalopathy, polysubstance dependence Current Diet TF - Promote at 60ml/hr Labs/Tests BUN 31 Cr 2.1 BG range since last assessment : 90-130 Na 137 Pertinent Medications reviewed Height 5 ft 7 in Weight 81.647 kg [place] Body Weight (kg) 67.27 BMI 28.1 Weight Status Overweight Subjective/Other Information Pt extubated on 05/18. [employer]ERAL PREARRANGEMENT COUNSELOR evaluation ordered yesterday. #1 Nutrition Diagnosis Inadequate oral intake Diagnosis Progress(for reassessment Continues documentation) Is patient on ventilator? No Is Patient Ambulatory and/or Out of Bed No REE-(Hughes-St. Jeor-confined to bed) [phone] Calculation Used for Recommendations [facility] Additional Notes Pro needs 1.2-2g/k-163g/ day Fluid needs 1ml/kcal Nutrition Intervention Nutrition Support: Continue Promote at 60ml/hr. Decrease water flush to 50ml q4h. Kcal 1,440 Protein (gm) 90 Carbohydrates (gm) 187 Fat (gm) 37 Fluid (mL) 1,208 Fiber (gm) 0 Goal #1 TF tolerance Goal #2 TF to meet at least 75% energy and pro needs Follow-Up By: 05/23/21 Additional Comments F/U: FUNERAL PREARRANGEMENT COUNSELOR eval results, TF tolerance
[2021-05-21] MEDS ORDERED: SODIUM POLYSTYRENE 15 GM/60 ML ORAL LIQD PO ONE (12:30)
--- NOTE | 2021-05-21 15:06 | Progress Note ---
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 * Acute hypoxic respiratory failure * NSTEMI * COVID 19 infection * Hepatitis C * Hypertension * Anemia * Metabolic acidosis * Methamphetamine abuse * Transaminitis Plan: * Patient with elevated renal function, cr worse today * k noted, stop promote and place on nepro * gentle ivfs today with low bp and volume depletion * hold diuresis , Na and low bp noted, hold bp meds prn * Serum sodium stable, continue free water flushes with TFs * Replete K prn * Renal ultrasound reviewed - will need follow up CT once stable * Continue antiHTN medications * Cardiology, ICU input noted * Dose medications for renal function * Avoid potential nephrotoxins * Strict I/O Subjective Principal diagnosis: AHRF; COVID-19 infection; NSTEMI; YE; HFrEF (35-40%); Polysubstance abuse Interval history: events noted Chart, vitals, labs reviewed. Remains confused Objective - Exam Narrative Exam: Direct examination deferred in setting of COVID-19 pandemic. Primary team exam reviewed in detail Objective - Vital Signs Vital signs: Vital Signs - 12hr 05/21/21 05/21/21 05/21/21 04:00 05:00 06:00 Temperature 101.4 F H Pulse Rate 78 79 82 Pulse Rate [ 78 From Monitor] Respiratory 23 23 29 H Rate Blood Pressure 88/65 86/63 99/67 O2 Sat by Pulse 98 98 99 Oximetry 05/21/21 05/21/21 05/21/21 06:12 07:00 08:00 Temperature 98.4 F Pulse Rate 82 83 83 Pulse Rate [ 78 From Monitor] Respiratory 35 H 44 H Rate Blood Pressure 99/67 101/72 100/72 O2 Sat by Pulse 100 100 Oximetry 05/21/21 05/21/21 05/21/21 08:15 09:00 10:00 Temperature Pulse Rate 82 82 75 Pulse Rate [ From Monitor] Respiratory 40 H 45 H 33 H Rate Blood Pressure 100/72 101/71 93/67 O2 Sat by Pulse 100 100 99 Oximetry 05/21/21 05/21/21 05/21/21 11:00 12:00 13:00 Temperature 97.8 F Pulse Rate 76 79 80 Pulse Rate [ 78 From Monitor] Respiratory 35 H 35 H 41 H Rate Blood Pressure 99/75 97/79 111/74 O2 Sat by Pulse 96 55 L Oximetry - Lab 05/21/21 03:12 05/21/21 03:12 Most recent lab results ABG pH 7.428 pH Units (7.350-7.450) 05/18/21 12:50 ABG pCO2 43.3 mm Hg 05/18/21 12:50 ABG pO2 79.6 mm Hg (80.0-90.0) L 05/18/21 12:50 ABG HCO3 28.0 mmol/L (20.0-26.0) H 05/18/21 12:50 ABG O2 Saturation 97.0 % (95.0-99.0) 05/18/21 12:50 Calcium 8.8 mg/dL (8.4-10.2) 05/21/21 03:12 Phosphorus 4.00 mg/dL (2.5-4.5) 05/14/21 15:44 Magnesium 2.00 mg/dL (1.7-2.3) 05/14/21 15:44 Urine Creatinine 100.8 mg/dL (0.1-20.0) H 05/10/21 11:03 Urine Sodium 61 mmol/L 05/05/21 09:57 Urine Total Protein 42 mg/dL (5-11.8) H 05/10/21 11:03 Medications & Allergies - Medications Allergies/Adverse Reactions: Allergies No Known Allergies Allergy (Verified 05/08/21 07:47) Home Medications: Home Medications Medication Instructions Recorded Confirmed Last Taken Type Cefpodoxime Proxetil 200 mg PO Q12H #10 tablet 09/11/20 05/19/21 Unknown Rx Famotidine [Pepcid] 20 mg PO BID #30 tablet 04/13/21 05/19/21 Unknown Rx Losartan [Cozaar] 100 mg PO QDAY #60 tablet 04/13/21 05/19/21 Unknown Rx Metoprolol Xl [Metoprolol 25 mg PO QDAY #30 tablet 04/13/21 05/19/21 Unknown Rx SUCCINATE ER TAB] NIFEdipine XL [Procardia Xl] 60 mg PO Q12HR #60 tablet 04/13/21 05/19/21 Unknown Rx hydrALAZINE [Apresoline TAB] 50 mg PO Q8HR #180 tablet 04/13/21 05/19/21 Unknown Rx Active Medications: Generic Name Dose Route Start Last Admin Trade Name Freq PRN Reason Stop Dose Admin Acetaminophen 650 mg 05/04/21 12:34 05/21/21 06:22 Acetaminophen 325 Mg Tab PO 650 mg Q4H PRN Administration Pain MILD(1-3)/Fever >100.5/MARIA Acetaminophen 650 mg 05/07/21 16:00 05/11/21 16:25 Acetaminophen 650 Mg Rect Supp MD 650 mg Q4H PRN Administration Pain, Mild (1-3) Apixaban 5 mg 05/20/21 11:00 05/21/21 09:14 Apixaban 5 Mg Tab PO 5 mg Q12HR RISHI Administration Protocol Aspirin 81 mg 05/06/21 14:00 05/21/21 09:13 Aspirin 81 Mg Tab Chew PO 81 mg QDAY RISHI Administration Atorvastatin Calcium 40 mg 05/09/21 22:00 05/20/21 21:11 Atorvastatin 40 Mg Tab FEEDTUBE 40 mg QHS RISHI Administration Chlordiazepoxide HCl 50 mg 05/19/21 22:00 05/21/21 09:14 Chlordiazepoxide 25 Mg Cap PO 50 mg BID RISHI Administration Dextrose 0 ml 05/09/21 10:49 05/14/21 06:55 Dextrose 10% *Hypoglycemia IV 250 ml PRN PRN Administration Hypoglycemia Famotidine 10 mg 05/17/21 10:00 05/21/21 09:14 Famotidine 10 Mg Tab FEEDTUBE 10 mg BID IRSHI Administration Haloperidol Lactate 5 mg 05/09/21 18:32 05/18/21 19:52 Haloperidol Lactate 5 Mg/1 Ml Inj IV 5 mg Q6H PRN Administration Agitation Hydralazine HCl 50 mg 05/04/21 14:00 05/21/21 13:20 Hydralazine 25 Mg Tab PO Not Given Q8HR RISHI Hydrophilic Ointment 1 applic 05/05/21 15:21 Lip Therapy Vaseline TP Q2HR PRN Dry Lips Cefepime HCl 2 gm in 100 mls @ 200 mls/hr 05/18/21 18:00 05/20/21 17:22 Cefepime/Ns 2 Gm/100 Ml IV 05/25/21 18:29 200 mls/hr Q24H RISHI Administration Protocol Sodium Chloride 1,000 mls @ 75 mls/hr 05/21/21 15:15 Nacl 0.9% 1000 Ml IV DIRECT RISHI Insulin Human Lispro 0 unit 05/10/21 09:40 05/12/21 16:49 Insulin Lispro 100 Unit/Ml SUB-Q 2 unit Q6HR PRN Administration Hyperglycemia Protocol Labetalol HCl 10 mg 05/15/21 10:24 Labetalol 20 Mg/4 Ml Inj IV Q4H PRN sbp> 160. Metoprolol Tartrate 50 mg 05/10/21 14:00 05/21/21 13:20 Metoprolol Tartrate 50 Mg Tab FEEDTUBE Not Given TID RISHI Multi-Ingred Cream/Lotion/Oil/Oint 1 applic 05/05/21 15:21 Mineral Oil/Petrolatum, White Ophth Oint 3.5 Gm OU Q4HR PRN Dry Eye(s) Ondansetron HCl 4 mg 05/04/21 12:34 05/04/21 21:51 Ondansetron 4 Mg/2 Ml Inj IV 4 mg Q8H PRN Administration Nausea And Vomiting Quetiapine Fumarate 100 mg 05/20/21 22:00 05/20/21 21:11 Quetiapine 100 Mg Tab PO 100 mg QHS RISHI Administration Senna/Docusate Sodium 1 tab 05/05/21 22:00 05/21/21 09:14 Sennosides/Docusate Sodium 8.6/50 Mg Tab FEEDTUBE 1 tab BID RISHI Administration Sodium Chloride 10 ml 05/04/21 22:00 05/21/21 09:14 Sodium Chloride 0.9% 10 Ml Flush Syringe IV 10 ml BID RISHI Administration Sodium Chloride 10 ml 05/04/21 12:34 05/06/21 13:59 Sodium Chloride 0.9% 10 Ml Flush Syringe IV 10 ml PRN PRN Administration LINE FLUSH Sodium Chloride 10 ml 05/09/21 09:46 Sodium Chloride 0.9% 50 Ml Ivpb IV PRN PRN FLUSH
[2021-05-21] MEDS ORDERED: SODIUM CHLORIDE 0.9% 1000 ML 1,000 ML IV SCH (15:15)
--- NOTE | 2021-05-21 15:58 | Progress Note ---
Assessment and Plan Acute hypoxic resp failure on MVS COVID positive NSTEMI Acute kidney injury Cardiomyopathy EF 35-40% History of hepatitis C Elevated D-dimer Tobacco abuse Polysubstance abusepatient with positive methamphetamines and has a history of cocaine use Anemia - stat ABG and address (? Acidosis) - repeat CXR now to re-evaluate pneumonia / progressive aspiration - transitioned to Apixaban re: VTE - increased Librium back to 75 mg po q8h - increased Seroquel to 150 mg po bid - received Kayexalate for hyperkalemia - tentative re-intubation if no improvement post above - continue BIPAP RTC for now - continue to use CIWA protocol drugs for sedation - continue care as below otherwise; - continue to follow electrolytes / I's & O's re: Azotemia - continue to wean supplemental oxygen for target O2 sat's > 90% acutely - aspiration precautions - continue bronchodilators with pulmonary hygiene per RT - wean per pulmonary driven protocols otherwise - avoid nephrotoxins, renally dose all medications - AB's per ID recommendations - continue accuchecks with glycemic control per SSI (While critically ill target blood glucose of 140-180 mg/dL; avoid hypoglycemia) - sedation prn for target RASS 0 to -1 - continue to avoid benzodiazepine's, reduce the possibility of delirium - prn analgesia per CPOT score - Maintenance of sleep-wake cycle, avoid delirium - continue enteral nutritional support at goal rate as tolerated - G.I. & VTE prophylaxis - PT/OT/ROM exercises - continue mobility protocols for pressure ulcer prophylaxis - Monitor hemodynamics closely - continue other care per attending / other consultants - discharge planning ongoing concurrently COVID SPECIFIC INTERVENTIONS - Remdesivir not administered secondary to renal failure - continue systemic steroids for severe COVID-19 infection empirically (Dexamethasone) - follow repeat COVID tests results - zinc and vitamin C supplementation - Monitor inflammatory markers per facility protocol - ferritin, Ddimer, CRP - therapeutic anticoagulation per system Protocol based on d-dimer and clinical considerations (on therapeutic heparin for NSTEMI) - Continue contact and airborne isolation .... Re-evaluate in am & prn CONDITION: CRITICAL PROGNOSIS: GUARDED CODE STATUS: FULL CODE The high probability of a clinically significant, sudden or life-threatening deterioration of the [respiratory, cardiovascular & neurologic] system(s) required my full and direct attention, intervention and personal management. The aggregate critical care time was [32] minutes without overlap. Time includes spent on; [x] Data Review and interpretation [x] Patient assessment and monitoring of vital signs [x] Documentation [x] Medication orders and management Subjective Date of service: 05/21/21 Principal diagnosis: AHRF; COVID-19 infection; NSTEMI; YE; HFrEF (35-40%); Polysubstance abuse Interval history: Patient is seen today for: Acute hypoxemic Resp failure; COVID-19 infection; NSTEMI; YE; HFrEF (35-40%); Polysubstance abuse; Anemia Seen and examined at bedside; 24hour events reviewed; nursing and respiratory care staff consulted; no adverse overnight events reported to me; resting in bed; on BIPAP with moderately increased respiratory effort; no emesis or overt aspiration reported; AMS is persistent Objective Vital Signs - 12hr 05/21/21 05/21/21 05/21/21 04:00 05:00 06:00 Temperature 101.4 F H Pulse Rate 78 79 82 Pulse Rate [ 78 From Monitor] Respiratory 23 23 29 H Rate Blood Pressure 88/65 86/63 99/67 O2 Sat by Pulse 98 98 99 Oximetry 05/21/21 05/21/21 05/21/21 06:12 07:00 08:00 Temperature 98.4 F Pulse Rate 82 83 83 Pulse Rate [ 78 From Monitor] Respiratory 35 H 44 H Rate Blood Pressure 99/67 101/72 100/72 O2 Sat by Pulse 100 100 Oximetry 05/21/21 05/21/21 05/21/21 08:15 09:00 10:00 Temperature Pulse Rate 82 82 75 Pulse Rate [ From Monitor] Respiratory 40 H 45 H 33 H Rate Blood Pressure 100/72 101/71 93/67 O2 Sat by Pulse 100 100 99 Oximetry 05/21/21 05/21/21 05/21/21 11:00 12:00 13:00 Temperature 97.8 F Pulse Rate 76 79 80 Pulse Rate [ 78 From Monitor] Respiratory 35 H 35 H 41 H Rate Blood Pressure 99/75 97/79 111/74 O2 Sat by Pulse 96 55 L Oximetry Constitutional: appears uncomfortable, other (middle aged male with moderately increased respiratory effort at rest) Eyes: non-icteric ENT: other (BIPAP FFM) Neck: supple, no lymphadenopathy, no JVD Effort: very labored Ascultation: Bilateral: diminished breath sounds, rhonchi (bases) Percussion: Bilateral: not dull Cardiovascular: regular rate and rhythm, other (S1,S2) Gastrointestinal: normoactive bowel sounds, soft, non-tender, non-distended Integumentary: normal Extremities: no cyanosis, no edema, pulses normal Neurologic: non-focal exam (grossly), unable to assess (sedated) Psychiatric: other CBC and BMP: 05/21/21 03:12 05/21/21 03:12 ABG, PT/INR, D-dimer: ABG ABG pH 7.428 pH Units (7.350-7.450) 05/18/21 12:50 ABG pCO2 43.3 mm Hg 05/18/21 12:50 ABG pO2 79.6 mm Hg (80.0-90.0) L 05/18/21 12:50 ABG O2 Saturation 97.0 % (95.0-99.0) 05/18/21 12:50 PT/INR, D-dimer PT 13.6 Sec. (12.2-14.9) 05/19/21 19:36 INR 0.94 (0.87-1.13) 05/19/21 19:36 D-Dimer 2730.61 ng/mlDDU (0-234) H 05/12/21 07:19 Abnormal lab findings: Abnormal Labs 05/04/21 05/04/21 05/04/21 07:25 07:25 07:25 WBC 12.9 H RBC 3.04 L Hgb 9.5 L Hct 28.4 L MCV MCHC RDW 15.4 H Lymph % (Auto) 11.4 L [place] % (Auto) 10.1 H Lymph # (Auto) [place] # (Auto) 1.3 H Seg Neutrophils % 78.0 H Seg Neuts % (Manual) Lymphocytes % (Manual) Monocytes % (Manual) Seg Neutrophils # 10.0 H Seg Neutrophils # Man Lymphocytes # (Manual) Monocytes # (Manual) PT 15.1 H APTT D-Dimer Heparin Anti-Xa Level ABG pH ABG pO2 ABG HCO3 ABG O2 Saturation ABG Base Excess ABG Hemoglobin Sodium 135 L Potassium Chloride Carbon Dioxide BUN 65 H Creatinine 3.4 H Glucose 118 H POC Glucose Calcium Ferritin Total Bilirubin 1.50 H AST 519 H ALT 475 H Lactate Dehydrogenase Total Creatine Kinase Troponin T 1.300 H* C-Reactive Protein Albumin Urine WBC (Auto) Urine Creatinine Urine Total Protein Complement C3 Coronavirus (PCR) Hepatitis C Antibody 05/04/21 05/04/21 05/04/21 07:25 08:42 08:42 WBC RBC Hgb Hct MCV MCHC RDW Lymph % (Auto) [place] % (Auto) Lymph # (Auto) [place] # (Auto) Seg Neutrophils % Seg Neuts % (Manual) Lymphocytes % (Manual) Monocytes % (Manual) Seg Neutrophils # Seg Neutrophils # Man Lymphocytes # (Manual) Monocytes # (Manual) PT APTT D-Dimer 579.49 H Heparin Anti-Xa Level ABG pH ABG pO2 ABG HCO3 ABG O2 Saturation ABG Base Excess ABG Hemoglobin Sodium Potassium Chloride Carbon Dioxide BUN Creatinine Glucose POC Glucose Calcium Ferritin Total Bilirubin AST ALT Lactate Dehydrogenase Total Creatine Kinase 406 H Troponin T 1.230 H* C-Reactive Protein Albumin Urine WBC (Auto) Urine Creatinine Urine Total Protein Complement C3 Coronavirus (PCR) Hepatitis C Antibody 05/04/21 05/04/21 05/04/21 10:13 13:34 18:14 WBC RBC Hgb 8.8 L Hct 26.6 L MCV MCHC RDW Lymph % (Auto) [place] % (Auto) Lymph # (Auto) [place] # (Auto) Seg Neutrophils % Seg Neuts % (Manual) Lymphocytes % (Manual) Monocytes % (Manual) Seg Neutrophils # Seg Neutrophils # Man Lymphocytes # (Manual) Monocytes # (Manual) PT APTT D-Dimer Heparin Anti-Xa Level < 0.10 L ABG pH ABG pO2 ABG HCO3 ABG O2 Saturation ABG Base Excess ABG Hemoglobin Sodium Potassium Chloride Carbon Dioxide BUN Creatinine Glucose POC Glucose Calcium Ferritin Total Bilirubin AST ALT Lactate Dehydrogenase Total Creatine Kinase Troponin T 1.400 H* C-Reactive Protein Albumin Urine WBC (Auto) Urine Creatinine Urine Total Protein Complement C3 Coronavirus (PCR) Hepatitis C Antibody 05/05/21 05/05/21 05/05/21 03:40 03:40 03:40 WBC RBC Hgb Hct MCV MCHC RDW Lymph % (Auto) [place] % (Auto) Lymph # (Auto) [place] # (Auto) Seg Neutrophils % Seg Neuts % (Manual) Lymphocytes % (Manual) Monocytes % (Manual) Seg Neutrophils # Seg Neutrophils # Man Lymphocytes # (Manual) Monocytes # (Manual) PT APTT D-Dimer Heparin Anti-Xa Level 0.11 L ABG pH ABG pO2 ABG HCO3 ABG O2 Saturation ABG Base Excess ABG Hemoglobin Sodium Potassium 3.3 L Chloride Carbon Dioxide BUN 59 H Creatinine 2.6 H Glucose 139 H POC Glucose Calcium Ferritin Total Bilirubin AST ALT Lactate Dehydrogenase Total Creatine Kinase Troponin T C-Reactive Protein Albumin Urine WBC (Auto) Urine Creatinine Urine Total Protein Complement C3 Coronavirus (PCR) Hepatitis C Antibody Reactive A 05/05/21 05/05/21 05/05/21 03:40 08:30 09:57 WBC RBC Hgb Hct MCV MCHC RDW Lymph % (Auto) [place] % (Auto) Lymph # (Auto) [place] # (Auto) Seg Neutrophils % Seg Neuts % (Manual) Lymphocytes % (Manual) Monocytes % (Manual) Seg Neutrophils # Seg Neutrophils # Man Lymphocytes # (Manual) Monocytes # (Manual) PT APTT D-Dimer Heparin Anti-Xa Level ABG pH ABG pO2 ABG HCO3 ABG O2 Saturation ABG Base Excess ABG Hemoglobin Sodium Potassium Chloride Carbon Dioxide BUN Creatinine Glucose POC Glucose Calcium Ferritin Total Bilirubin AST ALT Lactate Dehydrogenase Total Creatine Kinase Troponin T C-Reactive Protein Albumin Urine WBC (Auto) Urine Creatinine 100.8 H Urine Total Protein Complement C3 72 L Coronavirus (PCR) Positive A Hepatitis C Antibody 05/05/21 05/05/21 05/05/21 11:28 17:00 19:51 WBC RBC Hgb Hct MCV MCHC RDW Lymph % (Auto) [place] % (Auto) Lymph # (Auto) [place] # (Auto) Seg Neutrophils % Seg Neuts % (Manual) Lymphocytes % (Manual) Monocytes % (Manual) Seg Neutrophils # Seg Neutrophils # Man Lymphocytes # (Manual) Monocytes # (Manual) PT APTT D-Dimer Heparin Anti-Xa Level 0.10 L 0.22 L ABG pH 7.304 L ABG pO2 140.8 H ABG HCO3 ABG O2 Saturation ABG Base Excess -2.1 L ABG Hemoglobin 10.2 L Sodium Potassium Chloride Carbon Dioxide BUN Creatinine Glucose POC Glucose Calcium Ferritin Total Bilirubin AST ALT Lactate Dehydrogenase Total Creatine Kinase Troponin T C-Reactive Protein Albumin Urine WBC (Auto) Urine Creatinine Urine Total Protein Complement C3 Coronavirus (PCR) Hepatitis C Antibody 05/06/21 05/06/21 05/06/21 03:47 06:15 17:53 WBC RBC Hgb 9.0 L Hct 27.8 L MCV MCHC RDW Lymph % (Auto) [place] % (Auto) Lymph # (Auto) [place] # (Auto) Seg Neutrophils % Seg Neuts % (Manual) Lymphocytes % (Manual) Monocytes % (Manual) Seg Neutrophils # Seg Neutrophils # Man Lymphocytes # (Manual) Monocytes # (Manual) PT APTT D-Dimer Heparin Anti-Xa Level 0.10 L ABG pH ABG pO2 143.5 H ABG HCO3 ABG O2 Saturation ABG Base Excess -2.4 L ABG Hemoglobin 6.9 L Sodium Potassium Chloride Carbon Dioxide BUN Creatinine Glucose POC Glucose Calcium Ferritin Total Bilirubin AST ALT Lactate Dehydrogenase Total Creatine Kinase Troponin T C-Reactive Protein Albumin Urine WBC (Auto) Urine Creatinine Urine Total Protein Complement C3 Coronavirus (PCR) Hepatitis C Antibody 05/07/21 05/07/21 05/07/21 00:07 03:22 03:45 WBC RBC Hgb Hct MCV MCHC RDW Lymph % (Auto) [place] % (Auto) Lymph # (Auto) [place] # (Auto) Seg Neutrophils % Seg Neuts % (Manual) Lymphocytes % (Manual) Monocytes % (Manual) Seg Neutrophils # Seg Neutrophils # Man Lymphocytes # (Manual) Monocytes # (Manual) PT APTT D-Dimer Heparin Anti-Xa Level < 0.10 L ABG pH ABG pO2 104.3 H ABG HCO3 ABG O2 Saturation ABG Base Excess -2.6 L ABG Hemoglobin 9.1 L Sodium Potassium Chloride 107.1 H Carbon Dioxide 20 L BUN 56 H Creatinine 2.9 H Glucose POC Glucose Calcium Ferritin Total Bilirubin AST ALT Lactate Dehydrogenase Total Creatine Kinase Troponin T C-Reactive Protein Albumin Urine WBC (Auto) Urine Creatinine Urine Total Protein Complement C3 Coronavirus (PCR) Hepatitis C Antibody 05/07/21 05/07/21 05/07/21 07:44 16:28 22:41 WBC RBC Hgb Hct MCV MCHC RDW Lymph % (Auto) [place] % (Auto) Lymph # (Auto) [place] # (Auto) Seg Neutrophils % Seg Neuts % (Manual) Lymphocytes % (Manual) Monocytes % (Manual) Seg Neutrophils # Seg Neutrophils # Man Lymphocytes # (Manual) Monocytes # (Manual) PT APTT D-Dimer Heparin Anti-Xa Level < 0.10 L 0.10 L < 0.10 L ABG pH ABG pO2 ABG HCO3 ABG O2 Saturation ABG Base Excess ABG Hemoglobin Sodium Potassium Chloride Carbon Dioxide BUN Creatinine Glucose POC Glucose Calcium Ferritin Total Bilirubin AST ALT Lactate Dehydrogenase Total Creatine Kinase Troponin T C-Reactive Protein Albumin Urine WBC (Auto) Urine Creatinine Urine Total Protein Complement C3 Coronavirus (PCR) Hepatitis C Antibody 05/08/21 05/08/21 05/08/21 03:25 04:34 07:30 WBC 12.4 H RBC 3.02 L Hgb 9.5 L Hct 29.2 L MCV 97 H MCHC RDW 16.7 H Lymph % (Auto) 8.1 L [place] % (Auto) 11.0 H Lymph # (Auto) 1.0 L [place] # (Auto) 1.4 H Seg Neutrophils % 80.1 H Seg Neuts % (Manual) Lymphocytes % (Manual) Monocytes % (Manual) Seg Neutrophils # 9.9 H Seg Neutrophils # Man Lymphocytes # (Manual) Monocytes # (Manual) PT APTT D-Dimer Heparin Anti-Xa Level ABG pH ABG pO2 139.0 H ABG HCO3 ABG O2 Saturation ABG Base Excess ABG Hemoglobin 8.8 L Sodium Potassium Chloride 110.5 H Carbon Dioxide BUN 59 H Creatinine 2.8 H Glucose 103 H POC Glucose Calcium Ferritin Total Bilirubin AST ALT 327 H Lactate Dehydrogenase Total Creatine Kinase Troponin T C-Reactive Protein Albumin 3.1 L Urine WBC (Auto) Urine Creatinine Urine Total Protein Complement C3 Coronavirus (PCR) Hepatitis C Antibody 05/09/21 05/09/21 05/09/21 04:10 04:20 04:20 WBC 11.7 H RBC 2.79 L Hgb 8.7 L Hct 26.5 L MCV 95 H MCHC RDW 16.2 H Lymph % (Auto) [place] % (Auto) Lymph # (Auto) [place] # (Auto) Seg Neutrophils % Seg Neuts % (Manual) Lymphocytes % (Manual) Monocytes % (Manual) Seg Neutrophils # Seg Neutrophils # Man Lymphocytes # (Manual) Monocytes # (Manual) PT APTT D-Dimer Heparin Anti-Xa Level ABG pH ABG pO2 161.6 H ABG HCO3 ABG O2 Saturation ABG Base Excess ABG Hemoglobin 8.3 L Sodium 151 H Potassium Chloride 114.5 H Carbon Dioxide 21 L BUN 57 H Creatinine 2.4 H Glucose POC Glucose Calcium Ferritin Total Bilirubin AST ALT 210 H Lactate Dehydrogenase Total Creatine Kinase Troponin T C-Reactive Protein Albumin 2.9 L Urine WBC (Auto) Urine Creatinine Urine Total Protein Complement C3 Coronavirus (PCR) Hepatitis C Antibody 05/09/21 05/09/21 05/09/21 09:48 09:48 13:22 WBC 11.6 H RBC 3.00 L Hgb 9.0 L Hct 28.4 L MCV MCHC RDW 15.9 H Lymph % (Auto) 5.9 L [place] % (Auto) 8.9 H Lymph # (Auto) 0.7 L [place] # (Auto) 1.0 H Seg Neutrophils % 84.3 H Seg Neuts % (Manual) Lymphocytes % (Manual) Monocytes % (Manual) Seg Neutrophils # 9.8 H Seg Neutrophils # Man Lymphocytes # (Manual) Monocytes # (Manual) PT APTT D-Dimer Heparin Anti-Xa Level ABG pH ABG pO2 ABG HCO3 ABG O2 Saturation ABG Base Excess ABG Hemoglobin Sodium Potassium Chloride Carbon Dioxide BUN Creatinine Glucose POC Glucose Calcium Ferritin Total Bilirubin AST ALT Lactate Dehydrogenase Total Creatine Kinase Troponin T C-Reactive Protein 8.70 H Albumin Urine WBC (Auto) 25.0 H Urine Creatinine Urine Total Protein Complement C3 Coronavirus (PCR) Hepatitis C Antibody 05/09/21 05/09/21 05/10/21 15:20 18:16 04:57 WBC RBC 2.87 L Hgb 8.8 L Hct 27.0 L MCV MCHC RDW 15.9 H Lymph % (Auto) [place] % (Auto) Lymph # (Auto) [place] # (Auto) Seg Neutrophils % Seg Neuts % (Manual) Lymphocytes % (Manual) Monocytes % (Manual) Seg Neutrophils # Seg Neutrophils # Man Lymphocytes # (Manual) Monocytes # (Manual) PT APTT D-Dimer Heparin Anti-Xa Level ABG pH ABG pO2 102.0 H ABG HCO3 ABG O2 Saturation ABG Base Excess -2.8 L ABG Hemoglobin 9.0 L Sodium Potassium Chloride Carbon Dioxide BUN Creatinine Glucose POC Glucose 130 H Calcium Ferritin Total Bilirubin AST ALT Lactate Dehydrogenase Total Creatine Kinase Troponin T C-Reactive Protein Albumin Urine WBC (Auto) Urine Creatinine Urine Total Protein Complement C3 Coronavirus (PCR) Hepatitis C Antibody 05/10/21 05/10/21 05/10/21 04:57 04:57 04:57 WBC RBC Hgb Hct MCV MCHC RDW Lymph % (Auto) [place] % (Auto) Lymph # (Auto) [place] # (Auto) Seg Neutrophils % Seg Neuts % (Manual) Lymphocytes % (Manual) Monocytes % (Manual) Seg Neutrophils # Seg Neutrophils # Man Lymphocytes # (Manual) Monocytes # (Manual) PT APTT D-Dimer 1546.78 H Heparin Anti-Xa Level ABG pH ABG pO2 ABG HCO3 ABG O2 Saturation ABG Base Excess ABG Hemoglobin Sodium 148 H Potassium Chloride 114.9 H Carbon Dioxide 21 L BUN 57 H Creatinine 2.3 H Glucose 157 H POC Glucose Calcium Ferritin 888.2 H Total Bilirubin AST ALT Lactate Dehydrogenase 289 H Total Creatine Kinase Troponin T C-Reactive Protein 6.80 H Albumin Urine WBC (Auto) Urine Creatinine Urine Total Protein Complement C3 Coronavirus (PCR) Hepatitis C Antibody 05/10/21 05/10/21 05/10/21 05:09 08:04 11:03 WBC RBC Hgb Hct MCV MCHC RDW Lymph % (Auto) [place] % (Auto) Lymph # (Auto) [place] # (Auto) Seg Neutrophils % Seg Neuts % (Manual) Lymphocytes % (Manual) Monocytes % (Manual) Seg Neutrophils # Seg Neutrophils # Man Lymphocytes # (Manual) Monocytes # (Manual) PT APTT D-Dimer Heparin Anti-Xa Level ABG pH 7.473 H ABG pO2 114.6 H ABG HCO3 ABG O2 Saturation ABG Base Excess ABG Hemoglobin 9.5 L Sodium Potassium Chloride Carbon Dioxide BUN Creatinine Glucose POC Glucose 152 H Calcium Ferritin Total Bilirubin AST ALT Lactate Dehydrogenase Total Creatine Kinase Troponin T C-Reactive Protein Albumin Urine WBC (Auto) Urine Creatinine 100.8 H Urine Total Protein 42 H Complement C3 Coronavirus (PCR) Hepatitis C Antibody 05/10/21 05/10/21 05/10/21 13:07 18:01 23:31 WBC RBC Hgb Hct MCV MCHC RDW Lymph % (Auto) [place] % (Auto) Lymph # (Auto) [place] # (Auto) Seg Neutrophils % Seg Neuts % (Manual) Lymphocytes % (Manual) Monocytes % (Manual) Seg Neutrophils # Seg Neutrophils # Man Lymphocytes # (Manual) Monocytes # (Manual) PT APTT D-Dimer Heparin Anti-Xa Level ABG pH ABG pO2 ABG HCO3 ABG O2 Saturation ABG Base Excess ABG Hemoglobin Sodium Potassium Chloride Carbon Dioxide BUN Creatinine Glucose POC Glucose 150 H 189 H 142 H Calcium Ferritin Total Bilirubin AST ALT Lactate Dehydrogenase Total Creatine Kinase Troponin T C-Reactive Protein Albumin Urine WBC (Auto) Urine Creatinine Urine Total Protein Complement C3 Coronavirus (PCR) Hepatitis C Antibody 05/10/21 05/11/21 05/11/21 Unknown 05:25 06:53 WBC RBC Hgb Hct MCV MCHC RDW Lymph % (Auto) [place] % (Auto) Lymph # (Auto) [place] # (Auto) Seg Neutrophils % Seg Neuts % (Manual) Lymphocytes % (Manual) Monocytes % (Manual) Seg Neutrophils # Seg Neutrophils # Man Lymphocytes # (Manual) Monocytes # (Manual) PT APTT D-Dimer Heparin Anti-Xa Level ABG pH ABG pO2 126.6 H ABG HCO3 ABG O2 Saturation ABG Base Excess ABG Hemoglobin 9.2 L Sodium 150 H Potassium Chloride 116.6 H Carbon Dioxide 21 L BUN 62 H Creatinine 2.5 H Glucose 142 H POC Glucose 163 H Calcium Ferritin Total Bilirubin AST ALT Lactate Dehydrogenase Total Creatine Kinase Troponin T C-Reactive Protein Albumin Urine WBC (Auto) Urine Creatinine Urine Total Protein Complement C3 Coronavirus (PCR) Hepatitis C Antibody 05/11/21 05/11/21 05/11/21 06:53 11:06 13:51 WBC RBC 3.07 L Hgb 9.3 L Hct 29.0 L MCV 95 H MCHC RDW 16.1 H Lymph % (Auto) [place] % (Auto) Lymph # (Auto) [place] # (Auto) Seg Neutrophils % Seg Neuts % (Manual) Lymphocytes % (Manual) Monocytes % (Manual) Seg Neutrophils # Seg Neutrophils # Man Lymphocytes # (Manual) Monocytes # (Manual) PT APTT D-Dimer Heparin Anti-Xa Level ABG pH ABG pO2 74.9 L ABG HCO3 ABG O2 Saturation ABG Base Excess -3.3 L ABG Hemoglobin 10.8 L Sodium Potassium Chloride Carbon Dioxide BUN Creatinine Glucose POC Glucose 145 H Calcium Ferritin Total Bilirubin AST ALT Lactate Dehydrogenase Total Creatine Kinase Troponin T C-Reactive Protein Albumin Urine WBC (Auto) Urine Creatinine Urine Total Protein Complement C3 Coronavirus (PCR) Hepatitis C Antibody 05/11/21 05/11/21 05/11/21 14:43 14:43 15:47 WBC RBC Hgb 9.2 L Hct 29.7 L MCV MCHC RDW Lymph % (Auto) [place] % (Auto) Lymph # (Auto) [place] # (Auto) Seg Neutrophils % Seg Neuts % (Manual) Lymphocytes % (Manual) Monocytes % (Manual) Seg Neutrophils # Seg Neutrophils # Man Lymphocytes # (Manual) Monocytes # (Manual) PT 15.6 H APTT D-Dimer Heparin Anti-Xa Level ABG pH ABG pO2 ABG HCO3 ABG O2 Saturation ABG Base Excess ABG Hemoglobin Sodium Potassium Chloride Carbon Dioxide BUN Creatinine Glucose POC Glucose 137 H Calcium Ferritin Total Bilirubin AST ALT Lactate Dehydrogenase Total Creatine Kinase Troponin T C-Reactive Protein Albumin Urine WBC (Auto) Urine Creatinine Urine Total Protein Complement C3 Coronavirus (PCR) Hepatitis C Antibody 05/12/21 05/12/21 05/12/21 00:04 05:07 07:19 WBC 11.9 H RBC 3.00 L Hgb 9.1 L Hct 28.9 L MCV 96 H MCHC RDW 16.7 H Lymph % (Auto) 11.5 L [place] % (Auto) 8.2 H Lymph # (Auto) [place] # (Auto) 1.0 H Seg Neutrophils % 80.0 H Seg Neuts % (Manual) Lymphocytes % (Manual) Monocytes % (Manual) Seg Neutrophils # 9.6 H Seg Neutrophils # Man Lymphocytes # (Manual) Monocytes # (Manual) PT APTT D-Dimer Heparin Anti-Xa Level ABG pH ABG pO2 ABG HCO3 ABG O2 Saturation ABG Base Excess ABG Hemoglobin Sodium Potassium Chloride Carbon Dioxide BUN Creatinine Glucose POC Glucose 121 H 117 H Calcium Ferritin Total Bilirubin AST ALT Lactate Dehydrogenase Total Creatine Kinase Troponin T C-Reactive Protein Albumin Urine WBC (Auto) Urine Creatinine Urine Total Protein Complement C3 Coronavirus (PCR) Hepatitis C Antibody 05/12/21 05/12/21 05/12/21 07:19 07:19 07:19 WBC RBC Hgb Hct MCV MCHC RDW Lymph % (Auto) [place] % (Auto) Lymph # (Auto) [place] # (Auto) Seg Neutrophils % Seg Neuts % (Manual) Lymphocytes % (Manual) Monocytes % (Manual) Seg Neutrophils # Seg Neutrophils # Man Lymphocytes # (Manual) Monocytes # (Manual) PT APTT D-Dimer 2730.61 H Heparin Anti-Xa Level ABG pH ABG pO2 ABG HCO3 ABG O2 Saturation ABG Base Excess ABG Hemoglobin Sodium 146 H Potassium 5.1 H Chloride 112.4 H Carbon Dioxide 21 L BUN 61 H Creatinine 2.2 H Glucose 136 H POC Glucose Calcium 8.1 L Ferritin 640.2 H Total Bilirubin AST ALT Lactate Dehydrogenase 314 H Total Creatine Kinase Troponin T C-Reactive Protein 1.60 H Albumin Urine WBC (Auto) Urine Creatinine Urine Total Protein Complement C3 Coronavirus (PCR) Hepatitis C Antibody 05/12/21 05/12/21 05/12/21 11:10 16:10 16:38 WBC RBC Hgb Hct MCV MCHC RDW Lymph % (Auto) [place] % (Auto) Lymph # (Auto) [place] # (Auto) Seg Neutrophils % Seg Neuts % (Manual) Lymphocytes % (Manual) Monocytes % (Manual) Seg Neutrophils # Seg Neutrophils # Man Lymphocytes # (Manual) Monocytes # (Manual) PT APTT D-Dimer Heparin Anti-Xa Level 0.20 L ABG pH ABG pO2 ABG HCO3 ABG O2 Saturation ABG Base Excess ABG Hemoglobin Sodium Potassium Chloride Carbon Dioxide BUN Creatinine Glucose POC Glucose 131 H 157 H Calcium Ferritin Total Bilirubin AST ALT Lactate Dehydrogenase Total Creatine Kinase Troponin T C-Reactive Protein Albumin Urine WBC (Auto) Urine Creatinine Urine Total Protein Complement C3 Coronavirus (PCR) Hepatitis C Antibody 05/12/21 05/13/21 05/13/21 23:30 00:12 04:20 WBC RBC Hgb Hct MCV MCHC RDW Lymph % (Auto) [place] % (Auto) Lymph # (Auto) [place] # (Auto) Seg Neutrophils % Seg Neuts % (Manual) Lymphocytes % (Manual) Monocytes % (Manual) Seg Neutrophils # Seg Neutrophils # Man Lymphocytes # (Manual) Monocytes # (Manual) PT APTT D-Dimer Heparin Anti-Xa Level 0.13 L ABG pH ABG pO2 ABG HCO3 ABG O2 Saturation ABG Base Excess ABG Hemoglobin Sodium Potassium Chloride 111.2 H Carbon Dioxide BUN 53 H Creatinine 1.9 H Glucose 121 H POC Glucose 115 H Calcium 8.3 L Ferritin Total Bilirubin AST ALT Lactate Dehydrogenase Total Creatine Kinase Troponin T C-Reactive Protein Albumin Urine WBC (Auto) Urine Creatinine Urine Total Protein Complement C3 Coronavirus (PCR) Hepatitis C Antibody 05/13/21 05/13/21 05/13/21 04:20 11:15 11:29 WBC 13.1 H RBC 2.86 L Hgb 8.5 L Hct 26.9 L MCV MCHC RDW 15.7 H Lymph % (Auto) [place] % (Auto) Lymph # (Auto) [place] # (Auto) Seg Neutrophils % Seg Neuts % (Manual) Lymphocytes % (Manual) Monocytes % (Manual) Seg Neutrophils # Seg Neutrophils # Man Lymphocytes # (Manual) Monocytes # (Manual) PT APTT D-Dimer Heparin Anti-Xa Level ABG pH 7.456 H ABG pO2 106.0 H ABG HCO3 ABG O2 Saturation ABG Base Excess ABG Hemoglobin 7.1 L Sodium Potassium Chloride Carbon Dioxide BUN Creatinine Glucose POC Glucose 121 H Calcium Ferritin Total Bilirubin AST ALT Lactate Dehydrogenase Total Creatine Kinase Troponin T C-Reactive Protein Albumin Urine WBC (Auto) Urine Creatinine Urine Total Protein Complement C3 Coronavirus (PCR) Hepatitis C Antibody 05/13/21 05/13/21 05/14/21 16:38 23:43 04:26 WBC 14.2 H RBC 3.11 L Hgb 9.4 L Hct 29.3 L MCV MCHC RDW 15.4 H Lymph % (Auto) [place] % (Auto) Lymph # (Auto) [place] # (Auto) Seg Neutrophils % Seg Neuts % (Manual) Lymphocytes % (Manual) Monocytes % (Manual) Seg Neutrophils # Seg Neutrophils # Man Lymphocytes # (Manual) Monocytes # (Manual) PT APTT D-Dimer Heparin Anti-Xa Level ABG pH ABG pO2 ABG HCO3 ABG O2 Saturation ABG Base Excess ABG Hemoglobin Sodium Potassium Chloride Carbon Dioxide BUN Creatinine Glucose POC Glucose 119 H 55 L Calcium Ferritin Total Bilirubin AST ALT Lactate Dehydrogenase Total Creatine Kinase Troponin T C-Reactive Protein Albumin Urine WBC (Auto) Urine Creatinine Urine Total Protein Complement C3 Coronavirus (PCR) Hepatitis C Antibody 05/14/21 05/14/21 05/14/21 04:26 05:26 06:51 WBC RBC Hgb Hct MCV MCHC RDW Lymph % (Auto) [place] % (Auto) Lymph # (Auto) [place] # (Auto) Seg Neutrophils % Seg Neuts % (Manual) Lymphocytes % (Manual) Monocytes % (Manual) Seg Neutrophils # Seg Neutrophils # Man Lymphocytes # (Manual) Monocytes # (Manual) PT APTT D-Dimer Heparin Anti-Xa Level ABG pH ABG pO2 ABG HCO3 ABG O2 Saturation ABG Base Excess ABG Hemoglobin Sodium Potassium 3.4 L Chloride 107.6 H Carbon Dioxide BUN 42 H Creatinine 1.9 H Glucose POC Glucose 51 L 62 L Calcium Ferritin Total Bilirubin AST ALT Lactate Dehydrogenase Total Creatine Kinase Troponin T C-Reactive Protein Albumin Urine WBC (Auto) Urine Creatinine Urine Total Protein Complement C3 Coronavirus (PCR) Hepatitis C Antibody 05/14/21 05/14/21 05/14/21 09:58 12:05 12:08 WBC RBC Hgb Hct MCV MCHC RDW Lymph % (Auto) [place] % (Auto) Lymph # (Auto) [place] # (Auto) Seg Neutrophils % Seg Neuts % (Manual) Lymphocytes % (Manual) Monocytes % (Manual) Seg Neutrophils # Seg Neutrophils # Man Lymphocytes # (Manual) Monocytes # (Manual) PT APTT D-Dimer Heparin Anti-Xa Level ABG pH ABG pO2 ABG HCO3 ABG O2 Saturation ABG Base Excess ABG Hemoglobin Sodium Potassium 3.4 L Chloride Carbon Dioxide BUN 36 H Creatinine 1.8 H Glucose 133 H POC Glucose 60 L 127 H Calcium Ferritin Total Bilirubin AST ALT Lactate Dehydrogenase Total Creatine Kinase Troponin T C-Reactive Protein Albumin Urine WBC (Auto) Urine Creatinine Urine Total Protein Complement C3 Coronavirus (PCR) Hepatitis C Antibody 05/14/21 05/14/21 05/15/21 17:20 23:37 05:34 WBC RBC Hgb Hct MCV MCHC RDW Lymph % (Auto) [place] % (Auto) Lymph # (Auto) [place] # (Auto) Seg Neutrophils % Seg Neuts % (Manual) Lymphocytes % (Manual) Monocytes % (Manual) Seg Neutrophils # Seg Neutrophils # Man Lymphocytes # (Manual) Monocytes # (Manual) PT APTT D-Dimer Heparin Anti-Xa Level ABG pH ABG pO2 ABG HCO3 ABG O2 Saturation ABG Base Excess ABG Hemoglobin Sodium Potassium Chloride Carbon Dioxide BUN Creatinine Glucose POC Glucose 144 H 115 H 119 H Calcium Ferritin Total Bilirubin AST ALT Lactate Dehydrogenase Total Creatine Kinase Troponin T C-Reactive Protein Albumin Urine WBC (Auto) Urine Creatinine Urine Total Protein Complement C3 Coronavirus (PCR) Hepatitis C Antibody 05/15/21 05/15/21 05/15/21 07:26 07:26 14:35 WBC 13.8 H RBC 3.32 L Hgb 10.0 L Hct 31.2 L MCV MCHC RDW 16.0 H Lymph % (Auto) [place] % (Auto) Lymph # (Auto) [place] # (Auto) Seg Neutrophils % Seg Neuts % (Manual) Lymphocytes % (Manual) Monocytes % (Manual) Seg Neutrophils # Seg Neutrophils # Man Lymphocytes # (Manual) Monocytes # (Manual) PT APTT D-Dimer Heparin Anti-Xa Level ABG pH ABG pO2 ABG HCO3 ABG O2 Saturation ABG Base Excess ABG Hemoglobin Sodium 149 H D Potassium 3.5 L Chloride 113.2 H Carbon Dioxide BUN 29 H Creatinine 1.8 H Glucose 113 H POC Glucose 143 H Calcium Ferritin Total Bilirubin AST ALT Lactate Dehydrogenase Total Creatine Kinase Troponin T C-Reactive Protein Albumin Urine WBC (Auto) Urine Creatinine Urine Total Protein Complement C3 Coronavirus (PCR) Hepatitis C Antibody 05/16/21 05/16/21 05/16/21 06:12 08:43 10:05 WBC RBC Hgb Hct MCV MCHC RDW Lymph % (Auto) [place] % (Auto) Lymph # (Auto) [place] # (Auto) Seg Neutrophils % Seg Neuts % (Manual) Lymphocytes % (Manual) Monocytes % (Manual) Seg Neutrophils # Seg Neutrophils # Man Lymphocytes # (Manual) Monocytes # (Manual) PT APTT D-Dimer Heparin Anti-Xa Level 0.21 L ABG pH ABG pO2 240.8 H ABG HCO3 ABG O2 Saturation 99.4 H ABG Base Excess -2.6 L ABG Hemoglobin 10.7 L Sodium Potassium Chloride Carbon Dioxide BUN Creatinine Glucose POC Glucose 34 L Calcium Ferritin Total Bilirubin AST ALT Lactate Dehydrogenase Total Creatine Kinase Troponin T C-Reactive Protein Albumin Urine WBC (Auto) Urine Creatinine Urine Total Protein Complement C3 Coronavirus (PCR) Hepatitis C Antibody 05/16/21 05/16/21 05/16/21 10:21 10:21 13:14 WBC 27.6 H RBC Hgb 11.4 L Hct MCV 99 H MCHC 30 L RDW 18.1 H Lymph % (Auto) [place] % (Auto) Lymph # (Auto) [place] # (Auto) Seg Neutrophils % Seg Neuts % (Manual) 83.0 H Lymphocytes % (Manual) 4.0 L Monocytes % (Manual) 9.0 H Seg Neutrophils # Seg Neutrophils # Man 22.9 H Lymphocytes # (Manual) 1.1 L Monocytes # (Manual) 2.5 H PT APTT D-Dimer Heparin Anti-Xa Level ABG pH ABG pO2 ABG HCO3 ABG O2 Saturation ABG Base Excess ABG Hemoglobin Sodium Potassium Chloride 108.8 H Carbon Dioxide 17 L BUN 26 H Creatinine 1.9 H Glucose 141 H POC Glucose Calcium Ferritin Total Bilirubin AST ALT Lactate Dehydrogenase Total Creatine Kinase Troponin T 0.503 H* C-Reactive Protein Albumin 3.1 L Urine WBC (Auto) Urine Creatinine Urine Total Protein Complement C3 Coronavirus (PCR) Hepatitis C Antibody 05/16/21 05/17/21 05/17/21 18:40 00:02 04:52 WBC RBC Hgb 8.8 L Hct 28.5 L D MCV MCHC RDW Lymph % (Auto) [place] % (Auto) Lymph # (Auto) [place] # (Auto) Seg Neutrophils % Seg Neuts % (Manual) Lymphocytes % (Manual) Monocytes % (Manual) Seg Neutrophils # Seg Neutrophils # Man Lymphocytes # (Manual) Monocytes # (Manual) PT APTT D-Dimer Heparin Anti-Xa Level ABG pH ABG pO2 ABG HCO3 ABG O2 Saturation ABG Base Excess ABG Hemoglobin Sodium Potassium Chloride Carbon Dioxide BUN Creatinine Glucose POC Glucose 114 H Calcium Ferritin Total Bilirubin AST ALT Lactate Dehydrogenase Total Creatine Kinase Troponin T 0.400 H* D C-Reactive Protein Albumin Urine WBC (Auto) Urine Creatinine Urine Total Protein Complement C3 Coronavirus (PCR) Hepatitis C Antibody 05/17/21 05/17/21 05/17/21 04:52 05:15 06:50 WBC RBC Hgb Hct MCV MCHC RDW Lymph % (Auto) [place] % (Auto) Lymph # (Auto) [place] # (Auto) Seg Neutrophils % Seg Neuts % (Manual) Lymphocytes % (Manual) Monocytes % (Manual) Seg Neutrophils # Seg Neutrophils # Man Lymphocytes # (Manual) Monocytes # (Manual) PT APTT D-Dimer Heparin Anti-Xa Level ABG pH ABG pO2 193.7 H ABG HCO3 27.7 H ABG O2 Saturation 99.2 H ABG Base Excess 3.4 H ABG Hemoglobin 9.2 L Sodium 146 H Potassium Chloride 110.3 H Carbon Dioxide BUN 33 H Creatinine 2.3 H Glucose 120 H POC Glucose 109 H Calcium Ferritin Total Bilirubin AST ALT Lactate Dehydrogenase Total Creatine Kinase Troponin T C-Reactive Protein Albumin Urine WBC (Auto) Urine Creatinine Urine Total Protein Complement C3 Coronavirus (PCR) Hepatitis C Antibody 05/17/21 05/17/21 05/17/21 10:30 11:33 15:35 WBC RBC Hgb Hct MCV MCHC RDW Lymph % (Auto) [place] % (Auto) Lymph # (Auto) [place] # (Auto) Seg Neutrophils % Seg Neuts % (Manual) Lymphocytes % (Manual) Monocytes % (Manual) Seg Neutrophils # Seg Neutrophils # Man Lymphocytes # (Manual) Monocytes # (Manual) PT APTT D-Dimer Heparin Anti-Xa Level ABG pH 7.457 H ABG pO2 162.5 H 103.7 H ABG HCO3 27.7 H 27.5 H ABG O2 Saturation ABG Base Excess 3.6 H ABG Hemoglobin 10.1 L 11.5 L Sodium Potassium Chloride Carbon Dioxide BUN Creatinine Glucose POC Glucose 122 H Calcium Ferritin Total Bilirubin AST ALT Lactate Dehydrogenase Total Creatine Kinase Troponin T C-Reactive Protein Albumin Urine WBC (Auto) Urine Creatinine Urine Total Protein Complement C3 Coronavirus (PCR) Hepatitis C Antibody 05/17/21 05/17/21 05/17/21 16:21 18:18 23:29 WBC RBC Hgb 9.6 L Hct 30.3 L MCV MCHC RDW Lymph % (Auto) [place] % (Auto) Lymph # (Auto) [place] # (Auto) Seg Neutrophils % Seg Neuts % (Manual) Lymphocytes % (Manual) Monocytes % (Manual) Seg Neutrophils # Seg Neutrophils # Man Lymphocytes # (Manual) Monocytes # (Manual) PT APTT D-Dimer Heparin Anti-Xa Level ABG pH ABG pO2 ABG HCO3 ABG O2 Saturation ABG Base Excess ABG Hemoglobin Sodium Potassium Chloride Carbon Dioxide BUN Creatinine Glucose POC Glucose 133 H 111 H Calcium Ferritin Total Bilirubin AST ALT Lactate Dehydrogenase Total Creatine Kinase Troponin T C-Reactive Protein Albumin Urine WBC (Auto) Urine Creatinine Urine Total Protein Complement C3 Coronavirus (PCR) Hepatitis C Antibody 05/18/21 05/18/21 05/18/21 04:15 04:15 05:01 WBC 16.8 H RBC 3.03 L Hgb 8.9 L Hct 28.7 L MCV 95 H MCHC 31 L RDW 16.4 H Lymph % (Auto) [place] % (Auto) Lymph # (Auto) [place] # (Auto) Seg Neutrophils % Seg Neuts % (Manual) Lymphocytes % (Manual) Monocytes % (Manual) Seg Neutrophils # Seg Neutrophils # Man Lymphocytes # (Manual) Monocytes # (Manual) PT APTT D-Dimer Heparin Anti-Xa Level ABG pH ABG pO2 ABG HCO3 ABG O2 Saturation ABG Base Excess ABG Hemoglobin Sodium Potassium Chloride Carbon Dioxide BUN 40 H Creatinine 2.1 H Glucose 115 H POC Glucose 113 H Calcium Ferritin Total Bilirubin AST ALT Lactate Dehydrogenase Total Creatine Kinase Troponin T C-Reactive Protein Albumin Urine WBC (Auto) Urine Creatinine Urine Total Protein Complement C3 Coronavirus (PCR) Hepatitis C Antibody 05/18/21 05/18/21 05/19/21 11:18 12:50 05:23 WBC 18.5 H RBC 3.31 L Hgb 9.9 L Hct 31.1 L MCV MCHC RDW 16.9 H Lymph % (Auto) [place] % (Auto) Lymph # (Auto) [place] # (Auto) Seg Neutrophils % Seg Neuts % (Manual) Lymphocytes % (Manual) Monocytes % (Manual) Seg Neutrophils # Seg Neutrophils # Man Lymphocytes # (Manual) Monocytes # (Manual) PT APTT D-Dimer Heparin Anti-Xa Level ABG pH ABG pO2 79.6 L ABG HCO3 28.0 H ABG O2 Saturation ABG Base Excess 3.3 H ABG Hemoglobin 6.2 L Sodium Potassium Chloride Carbon Dioxide BUN Creatinine Glucose POC Glucose 129 H Calcium Ferritin Total Bilirubin AST ALT Lactate Dehydrogenase Total Creatine Kinase Troponin T C-Reactive Protein Albumin Urine WBC (Auto) Urine Creatinine Urine Total Protein Complement C3 Coronavirus (PCR) Hepatitis C Antibody 05/19/21 05/19/21 05/19/21 05:23 05:23 11:24 WBC RBC Hgb Hct MCV MCHC RDW Lymph % (Auto) [place] % (Auto) Lymph # (Auto) [place] # (Auto) Seg Neutrophils % Seg Neuts % (Manual) Lymphocytes % (Manual) Monocytes % (Manual) Seg Neutrophils # Seg Neutrophils # Man Lymphocytes # (Manual) Monocytes # (Manual) PT APTT D-Dimer Heparin Anti-Xa Level ABG pH ABG pO2 ABG HCO3 ABG O2 Saturation ABG Base Excess ABG Hemoglobin Sodium Potassium Chloride Carbon Dioxide BUN 35 H 34 H Creatinine 2.0 H 2.1 H Glucose POC Glucose 111 H Calcium Ferritin Total Bilirubin AST ALT Lactate Dehydrogenase Total Creatine Kinase Troponin T C-Reactive Protein Albumin Urine WBC (Auto) Urine Creatinine Urine Total Protein Complement C3 Coronavirus (PCR) Hepatitis C Antibody 05/19/21 05/19/21 05/19/21 16:33 19:36 23:47 WBC RBC Hgb Hct MCV MCHC RDW Lymph % (Auto) [place] % (Auto) Lymph # (Auto) [place] # (Auto) Seg Neutrophils % Seg Neuts % (Manual) Lymphocytes % (Manual) Monocytes % (Manual) Seg Neutrophils # Seg Neutrophils # Man Lymphocytes # (Manual) Monocytes # (Manual) PT APTT 72.5 H* D-Dimer Heparin Anti-Xa Level ABG pH ABG pO2 ABG HCO3 ABG O2 Saturation ABG Base Excess ABG Hemoglobin Sodium Potassium Chloride Carbon Dioxide BUN Creatinine Glucose POC Glucose 131 H 122 H Calcium Ferritin Total Bilirubin AST ALT Lactate Dehydrogenase Total Creatine Kinase Troponin T C-Reactive Protein Albumin Urine WBC (Auto) Urine Creatinine Urine Total Protein Complement C3 Coronavirus (PCR) Hepatitis C Antibody 05/20/21 05/20/21 05/20/21 05:14 05:14 06:12 WBC 19.7 H RBC 3.19 L Hgb 9.5 L Hct 29.9 L MCV MCHC RDW 17.3 H Lymph % (Auto) [place] % (Auto) Lymph # (Auto) [place] # (Auto) Seg Neutrophils % Seg Neuts % (Manual) Lymphocytes % (Manual) Monocytes % (Manual) Seg Neutrophils # Seg Neutrophils # Man Lymphocytes # (Manual) Monocytes # (Manual) PT APTT D-Dimer Heparin Anti-Xa Level ABG pH ABG pO2 ABG HCO3 ABG O2 Saturation ABG Base Excess ABG Hemoglobin Sodium Potassium Chloride Carbon Dioxide BUN 31 H Creatinine 2.1 H Glucose 130 H POC Glucose 120 H Calcium Ferritin Total Bilirubin AST ALT Lactate Dehydrogenase Total Creatine Kinase Troponin T C-Reactive Protein Albumin Urine WBC (Auto) Urine Creatinine Urine Total Protein Complement C3 Coronavirus (PCR) Hepatitis C Antibody 05/20/21 05/20/21 05/20/21 11:10 18:12 23:55 WBC RBC Hgb Hct MCV MCHC RDW Lymph % (Auto) [place] % (Auto) Lymph # (Auto) [place] # (Auto) Seg Neutrophils % Seg Neuts % (Manual) Lymphocytes % (Manual) Monocytes % (Manual) Seg Neutrophils # Seg Neutrophils # Man Lymphocytes # (Manual) Monocytes # (Manual) PT APTT D-Dimer Heparin Anti-Xa Level ABG pH ABG pO2 ABG HCO3 ABG O2 Saturation ABG Base Excess ABG Hemoglobin Sodium Potassium Chloride Carbon Dioxide BUN Creatinine Glucose POC Glucose 152 H 137 H 146 H Calcium Ferritin Total Bilirubin AST ALT Lactate Dehydrogenase Total Creatine Kinase Troponin T C-Reactive Protein Albumin Urine WBC (Auto) Urine Creatinine Urine Total Protein Complement C3 Coronavirus (PCR) Hepatitis C Antibody 05/21/21 05/21/21 05/21/21 03:12 03:12 05:53 WBC 26.2 H RBC 2.58 L Hgb 7.7 L Hct 24.2 L MCV MCHC RDW 17.8 H Lymph % (Auto) [place] % (Auto) Lymph # (Auto) [place] # (Auto) Seg Neutrophils % Seg Neuts % (Manual) Lymphocytes % (Manual) Monocytes % (Manual) Seg Neutrophils # Seg Neutrophils # Man Lymphocytes # (Manual) Monocytes # (Manual) PT APTT D-Dimer Heparin Anti-Xa Level ABG pH ABG pO2 ABG HCO3 ABG O2 Saturation ABG Base Excess ABG Hemoglobin Sodium 133 L Potassium 5.7 H D Chloride Carbon Dioxide 21 L BUN 49 H Creatinine 2.6 H Glucose 160 H POC Glucose 118 H Calcium Ferritin Total Bilirubin AST ALT Lactate Dehydrogenase Total Creatine Kinase Troponin T C-Reactive Protein Albumin Urine WBC (Auto) Urine Creatinine Urine Total Protein Complement C3 Coronavirus (PCR) Hepatitis C Antibody Chest x-ray: image reviewed (developing RLL infiltrate) Allied health notes reviewed: nursing
[2021-05-21] MEDS ORDERED: LORazepam 2 MG/ML VIAL ONE (18:20)
[2021-05-21 18:24] LABS: ABG Base Excess 2.1 mmol/L (-2.0-3.0); ABG HCO3 25.4 mmol/L (20.0-26.0); ABG Methemoglobin 0.3 % (0.0-1.5); ABG Oxygen Saturation 97.1 % (95.0-99.0); ABG PCO2 33.4 mm Hg; ABG PH 7.5 pH Units (7.350-7.450); ABG PO2 56.6 mm Hg (80.0-90.0)
--- NOTE | 2021-05-21 18:29 | XRay Report ---
CHEST 1 VIEW 05/21/2021 5:21 PM INDICATION / CLINICAL INFORMATION: pneumonia; aspiration. COMPARISON: 05/20/21 FINDINGS: SUPPORT DEVICES: Feeding tube is unchanged. HEART / MEDIASTINUM: Stable. LUNGS / PLEURA: Right lung base density is unchanged. Interval development of mild left lung base den sity. No pneumothorax. ADDITIONAL FINDINGS: No significant additional findings. IMPRESSION: 1. Bibasilar pulmonary opacities which could be related to aspiration. Signer Name: Meir Fox MD Signed: 05/21/2021 6:24 PM Workstation Name: [id number]
[2021-05-21] MEDS: CEFEPIME/NS 2 GM/100 ML 2 GM/100 ML BAG IV SCH (18:30)
[2021-05-21] MEDS ORDERED: LORazepam 2 MG/ML VIAL IV PRN ×2 (18:37)
[2021-05-21] MEDS ORDERED: LORazepam 2 MG/ML VIAL IV ONE (20:19)
[2021-05-21] MEDS: QUEtiapine 100 MG TAB PO SCH (22:24)
[2021-05-22] MEDS: ACETAMINOPHEN 325 MG TAB PO PRN (00:42)
[2021-05-22] MEDS: chlordiazePOXIDE 25 MG CAP PO SCH ×3 (05:25→22:54)
[2021-05-22] MEDS: hydrALAZINE 25 MG TAB PO SCH ×3 (05:25→22:30)
[2021-05-22] MEDS: LORazepam 2 MG/ML VIAL IV PRN ×2 (05:26→15:10)
[2021-05-22 05:41] LABS: Calcium 8.4 mg/dL (8.4-10.2)
[2021-05-22] MEDS: SENNOSIDES/DOCUSATE SODIUM 8.6/50 MG TAB FEEDTUBE SCH ×2 (09:45→22:55)
[2021-05-22] MEDS: ASPIRIN 81 MG TAB CHEW PO SCH (09:45)
[2021-05-22] MEDS: FAMOTIDINE 10 MG TAB FEEDTUBE SCH ×2 (09:45→22:55)
[2021-05-22] MEDS: APIXABAN 5 MG TAB PO SCH ×2 (09:45→22:45)
[2021-05-22] MEDS: QUEtiapine 100 MG TAB PO SCH ×3 (09:49→22:55)
[2021-05-22] MEDS: METOPROLOL TARTRATE 50 MG TAB FEEDTUBE SCH ×3 (09:49→21:54)
--- NOTE | 2021-05-22 11:13 | Progress Note ---
Assessment and Plan Assessment and plan: This is a 56-year-old male with a nicotine abuse, A. fib, hypertension, and chronic medication noncompliance and homelessness who presented to emergency department on 05/04 with complaints of dyspnea on exertion for the past month worsening over the past 3 days, intermittent left-sided chest tightness with activity, and persistent cough without fever. Work-up in the emergency department revealed anemia, hyponatremia, elevated BUN/creatinine and transaminitis. Patient was admitted to the hospitalist service with acute kidney injury and accelerated hypertension. Hospital course to date 05/04/2021. Cardiology was considering patient for Registered Respiratory Technician. However, patient with elevated creatinine therefore will hold off on cath evaluation. Nephrology consultation for acute kidney injury. Etiology likely secondary to vasomotor nephropathy/dehydration. We will start IV fluid hydration. Check renal ultrasound to rule out obstructive uropathy. We will resume home medications for the accelerated hypertension 05/05/2021. Echocardiogram reveals EF 35-40% with moderate concentric left ventricular hypertrophy. Moderate global hypokinesis of left ventricle. Mild mitral regurgitation. Mild pulmonary hypertension. Troponins are believed to be elevated in the setting of acute kidney injury. No beta-blockers due to cocaine use continue heparin and nitro drip. Continue CIWA protocol. Await urine studies 05/06/2021. Patient decompensated yesterday with worsening respiratory failure and difficulty to protect airway. Patient was breathing sonorously, and hypoxic. Patient was intubated and currently is on mechanical ventilation. Patient with AC mode ventilation rate of 20, tidal volume 450, FiO2 40% and PEEP of 6. COVID PCR testing on 05/05/2021 was found to be positive. Echocardiogram completed on this admission shows worsening EF from August 2020. Echocardiogram now reveals moderate concentric left ventricular hypertrophy with moderate global hypokinesis and EF of 35-40%. Mild pulmonary hypertension. 05/08: Continue current management, renal stable, LFTs stable and if improved will start on statin therapy. 05/09: Patient is febrile, will panculture, PSV today. CRP pending. Mucoid discharge noted from meatus which was sent for culture. Hypernatremia persists, free water flushes increased 05/10: PSV trial per CCM, T-max 102.3, given mildly elevated procalcitonin started on ceftriaxone 2 g every 24 for 2 days per ID. Overnight patient had atrial fibrillation which was treated with Cardizem drip and converted to sinus rhythm. Metoprolol p.o. increased to 3 times daily. 05/11: Patient still running fevers and if still febrile tomorrow will escalate to cefepime per ID as he is currently on ceftriaxone, CCM attempted PSV but patient became agitated and was switched back to pressure control. Lower extremity ultrasound shows acute DVT and started on heparin drip. Started on scheduled Librium. Patient remains with hypernatremia and elevated creatinine and on IV fluids. Free water flushes adjusted. Started on vancomycin today 05/12: Patient placed on pressure support trial without fentanyl, hypernatremia improving, hyperkalemia noted. Slight improvement to renal function. 05/13: Patient was extubated today, ID change antibiotics to Zosyn for Enterococcus, was started tapering Librium in the morning, renal function slightly improved. Possible transfer to floor tomorrow. ST evaluation for swallow ordered. 05/14: Patient became hypoglycemic overnight and started on dextrose IV fluids. Accu-Chek fingersticks have been low but on a.m. BMP patient blood glucose is 100. Other BMP pending. Feeding tube replaced due to need for enteral access and patient being severely confused. Renal functions remains the same. Upon confirmation will restart tube feedings, p.o. medications and free water flushes. 05/15: Remains confused/somnolent on my encounter. [facility] Remains hypertensive. Added amlodipine 10 mg NG and labetalol prn. ST eval today but doubt he will participate. Potassium replaced. Renal function improving overall, however, hypernatremic. Inc TF FWF to 250 cc q4hr. 05/16: Respiratory distress this AM, hypoxic in 60's not protecting airway. Required intubation, patient now ICU patient. Reduce fluid to FWF only, IVF d/c off jun. CXR ordered demonstrates pulmonary edema. Lasix 40 mg IV bid ordered. Troponin elevated, continue heparin gtt. Would recommend decreasing sedating me dications at this point, agree with librium taper. 05/17: Patient remains on the vent and sedated, RASS -3. Plan for possible sedation vacation today. D/w CCM plan to wean for possible extubation on the vent. 05/18: Tolerated 4hrs of sedation vacation yesterday, on low dose fentanyl this am. Patient is tolerating PST this am. Plan to wean off sedation and wean vent setting for possible extubation today. 05/19: s/p extubation now stable on 3L NC. Lethargic this am, will decreased Seroquel. Speech consult for swallow eval, continue enteral nutrition via NGT for now. Hypertensive throughout the night, Norvac added. Remains on heparin gtt for DVT, might need to transition to PO AC, will d/w CCM. Patient is stable for transfer to [facility] 05/20: Continue sepsis work up considering fever, aspiration precautions. Discussed with nursing staff will hold am seroquel. Continue tube feed. RENAL Function remains relatively stable, possible has peaked. 05/21: Patient seen and examined, resting but still with mild increase wob, CXR concerning with right lobar infiltrate, continue antibiotics, will give kayxalate in addition due to hyperkalemia, Will discuss with ID due to rising luekocytosis possible worsening sepsis. 05/22: Patient remains on BIPAP, still sedated appearing, cxr concerning for possible aspiration, unfortunately still worsening renal status. Will continue abx and continue collaboration with pulmonary team to ensure no over sedation. Continue abx, will add kayaxlate Assessment and Plan Acute hypoxic respiratory failure (worsened) -CCM consulted, appreciate recommendations -Intubated on 05/05 with 7.50 ETT at 20 over the lips in the ED and extubated 05/13 -Reintubated on 05/16; Exttubated on 05/18 -CCM consulted, appreciate recommendations -Aspiration precaution HOB above 30 -Continue O2 supplementation and wean as tolerated -Continue SPO2 monitoring for SPO2 goal above 92% Severe COVID-19 pneumonia/leukocytosis, Enterococcus in urine -Infectious disease consulted, appreciate recommendations -COVID-19 PCR positive -Continue droplet/precautions -Not a candidate for remdesivir given acute kidney injury -Dexamethasone for 10 days -Anticoagulation per hospital protocol -Trend COVID-19 from 2 markers (ferritin, D-dimer, CRP, LDH) -Continue IV Abx per ID Acute DVT -Bilateral lower extremity Doppler ultrasound shows acute DVT -On Heparin drip per protocol -Monitor for s/s of active bleeding -Trend CBC and Coags -Will D/W CCM for possible bridge to PO AC agent Acute kidney injury likely secondary to vasomotor nephropathy -Nephrology consulted, appreciate recommendations -Avoid nephrotoxic medications -Renally dose medication -Strict intake and output -FeNa indicates prerenal -Renal ultrasound completed: 1.7 hyper echoic mass within the left upper pole, Monitor for now follow-up with CT once stable Metabolic encephalopathy -Lethargic this am, has been off sedation for over 24hrs -Seroquel decreased -Continue Librium to prevent DTs -Maintain sleep-wake cycle -Monitor QTC -Avoid delirium -May need psych consult Hypertension; S/p hypertensive emergency -Cardiology on consult -Continue current antihypertensives therapy -Norvasc added for better control -Blood pressure monitoring per protocol -PRN Labetalol for SBP greater than 160 Heart failure reduced EF, cardiomyopathy, NSTEMI, paroxysmal atrial fibrillation -Continue beta-sylvia and aspirin -Resume statin therapy -Cardiology consulted, appreciate recommendations -Echo 05/04/2021-EF 35 to 40%. Moderate concentric LVH. Moderate global hypokinesis of left ventricle. Mild mitral regurgitation. Mild pulmonary hypertension. Echocardiogram reviewed (08/27/2020): LVEF is 50 to 55%. Mild to moderate concentric LVF. Severe diastolic dysfunction is present (restrictive filling). Right ventricle is mildly hypokinetic. RVSP is 48 mmHg. No valvular abnormalities. -S/p heparin drip for 24 hours -Patient had atrial fibrillation overnight on 05/10 and was treated with a Cardiz em drip Polysubstance abuse, tobacco abuse -UDS positive for amphetamines -We will need cessation counseling when appropriate Transaminitis, h/o hepatitis C -Renal ultrasound showed incidental finding of cholelithiasis -Trend LFTs -Continue supportive management Anemia -Trend CBC -Transfuse for hemoglobin less than 7 DVT/ GI prophylaxis -Heparin gtt -PPI History Interval history: Patient seen and examined, still lethargic, marginal increase in work of breathing, ON BIPAP Hospitalist Physical - Physical exam Narrative exam: General appearance: Present: Mild respiratory distress on BIPAP - Neck Neck: Present: supple - Respiratory Respiratory: bilateral: rhonchi, wheezing (Scattered) - Cardiovascular Heart rate: 86 Rhythm: irregularly irregular - Extremities Extremities: no ischemia, pulses intact - Abdominal General gastrointestinal: soft, non-tender, normal bowel sounds - Integumentary Integumentary: Present: clear, warm, dry - Psychiatric Psychiatric: unable to examine - Neurologic Neurologic: other moves all extremity - Allied Health Allied health notes reviewed: nursing, case management - Constitutional Vitals: Temp Pulse Resp BP Pulse Ox 99.3 F 89 31 H 141/84 99 05/22/21 07:39 05/22/21 09:49 05/22/21 09:31 05/22/21 09:49 05/22/21 09:31 General appearance: Present: no acute distress HEART Score - HEART Score EKG: Non-specific Age: 45-65 Risk factors: 1-2 risk factors Troponin: Troponin T 0.400 ng/mL (0.00-0.029) H* D 05/16/21 18:40 Troponin: 1-3x normal limit - Critical Actions Critical Actions: 4-6 pts:12-16.6% risk of adverse cardiac event. Should be admitted Results - Labs CBC & Chem 7: 05/21/21 03:12 05/22/21 05:05 Labs: Laboratory Last Values WBC 26.2 K/mm3 (4.5-11.0) H 05/21/21 03:12 RBC 2.58 M/mm3 (3.65-5.03) L 05/21/21 03:12 Hgb 7.7 gm/dl (11.8-15.2) L 05/21/21 03:12 Hct 24.2 % (35.5-45.6) L 05/21/21 03:12 MCV 94 fl (84-94) 05/21/21 03:12 MCH 30 pg (28-32) 05/21/21 03:12 MCHC 32 % (32-34) 05/21/21 03:12 RDW 17.8 % (13.2-15.2) H 05/21/21 03:12 Plt Count 391 K/mm3 (140-440) 05/21/21 03:12 Lymph % (Auto) Party Demonstrator 05/16/21 10:21 [place] % (Auto) Party Demonstrator 05/16/21 10:21 Eos % (Auto) Party Demonstrator 05/16/21 10:21 Baso % (Auto) Party Demonstrator 05/16/21 10:21 Lymph # (Auto) Party Demonstrator 05/16/21 10:21 [place] # (Auto) Party Demonstrator 05/16/21 10:21 Eos # (Auto) Party Demonstrator 05/16/21 10:21 Baso # (Auto) Party Demonstrator 05/16/21 10:21 Add Manual Diff Complete 05/16/21 10:21 Total Counted 100 05/16/21 10:21 Seg Neutrophils % Party Demonstrator 05/16/21 10:21 Seg Neuts % (Manual) 83.0 % (40.0-70.0) H 05/16/21 10:21 Band Neutrophils % 2.0 % 05/16/21 10:21 Lymphocytes % (Manual) 4.0 % (13.4-35.0) L 05/16/21 10:21 Reactive Lymphs % (Man) 0 % 05/16/21 10:21 Monocytes % (Manual) 9.0 % (0.0-7.3) H 05/16/21 10:21 Eosinophils % (Manual) 0 % (0.0-4.3) 05/16/21 10:21 Basophils % (Manual) 0 % (0.0-1.8) 05/16/21 10:21 Metamyelocytes % 0 % 05/16/21 10:21 Myelocytes % 2.0 % 05/16/21 10:21 Promyelocytes % 0 % 05/16/21 10:21 Blast Cells % 0 % 05/16/21 10:21 Nucleated RBC % Not Reportable 05/16/21 10:21 Seg Neutrophils # Party Demonstrator 05/16/21 10:21 Seg Neutrophils # Man 22.9 K/mm3 (1.8-7.7) H 05/16/21 10:21 Band Neutrophils # 0.6 K/mm3 05/16/21 10:21 Lymphocytes # (Manual) 1.1 K/mm3 (1.2-5.4) L 05/16/21 10:21 Abs React Lymphs (Man) 0.0 K/mm3 05/16/21 10:21 Monocytes # (Manual) 2.5 K/mm3 (0.0-0.8) H 05/16/21 10:21 Eosinophils # (Manual) 0.0 K/mm3 (0.0-0.4) 05/16/21 10:21 Basophils # (Manual) 0.0 K/mm3 (0.0-0.1) 05/16/21 10:21 Metamyelocytes # 0.0 K/mm3 05/16/21 10:21 Myelocytes # 0.6 K/mm3 05/16/21 10:21 Promyelocytes # 0.0 K/mm3 05/16/21 10:21 Blast Cells # 0.0 K/mm3 05/16/21 10:21 WBC Morphology Not Reportable 05/16/21 10:21 Hypersegmented Neuts Not Reportable 05/16/21 10:21 Hyposegmented Neuts Not Reportable 05/16/21 10:21 Hypogranular Neuts Not Reportable 05/16/21 10:21 Smudge Cells Not Reportable 05/16/21 10:21 Toxic Granulation Not Reportable 05/16/21 10:21 Toxic Vacuolation Not Reportable 05/16/21 10:21 Dohle Bodies Not Reportable 05/16/21 10:21 Pelger-Huet Anomaly Not Reportable 05/16/21 10:21 Jesse Rods Not Reportable 05/16/21 10:21 Platelet Estimate Consistent w auto 05/16/21 10:21 Clumped Platelets Few 05/16/21 10:21 Plt Clumps, EDTA Not Reportable 05/16/21 10:21 Large Platelets Not Reportable 05/16/21 10:21 Giant Platelets Not Reportable 05/16/21 10:21 Platelet Satelliting Not Reportable 05/16/21 10:21 Plt Morphology Comment Not Reportable 05/16/21 10:21 RBC Morphology Not Reportable 05/16/21 10:21 Dimorphic RBCs Not Reportable 05/16/21 10:21 Polychromasia Not Reportable 05/16/21 10:21 Hypochromasia Not Reportable 05/16/21 10:21 Poikilocytosis Not Reportable 05/16/21 10:21 Anisocytosis 1+ 05/16/21 10:21 Microcytosis Not Reportable 05/16/21 10:21 Macrocytosis Few 05/16/21 10:21 Spherocytes Not Reportable 05/16/21 10:21 Pappenheimer Bodies Not Reportable 05/16/21 10:21 Sickle Cells Not Reportable 05/16/21 10:21 Target Cells Not Reportable 05/16/21 10:21 Tear Drop Cells Not Reportable 05/16/21 10:21 Ovalocytes Not Reportable 05/16/21 10:21 Helmet Cells Not Reportable 05/16/21 10:21 Murphy-Marshallberg Bodies Not Reportable 05/16/21 10:21 R[place] Rings Not Reportable 05/16/21 10:21 Alec Cells Not Reportable 05/16/21 10:21 Bite Cells Not Reportable 05/16/21 10:21 Crenated Cell Not Reportable 05/16/21 10:21 Elliptocytes Not Reportable 05/16/21 10:21 Acanthocytes (Spur) Not Reportable 05/16/21 10:21 Rouleaux Not Reportable 05/16/21 10:21 Hemoglobin C Crystals Not Reportable 05/16/21 10:21 Schistocytes Not Reportable 05/16/21 10:21 Malaria parasites Not Reportable 05/16/21 10:21 Tomi Bodies Not Reportable 05/16/21 10:21 Hem Pathologist Commnt No 05/16/21 10:21 PT 13.6 Sec. (12.2-14.9) 05/19/21 19:36 INR 0.94 (0.87-1.13) 05/19/21 19:36 APTT 72.5 Sec. (24.2-36.6) H* 05/19/21 19:36 D-Dimer 2730.61 ng/mlDDU (0-234) H 05/12/21 07:19 Heparin Anti-Xa Level 0.47 U.I./ml (0.3-0.7) 05/19/21 05:23 ABG pH 7.500 pH Units (7.350-7.450) H 05/21/21 18:00 ABG pCO2 33.4 mm Hg 05/21/21 18:00 ABG pO2 56.6 mm Hg (80.0-90.0) L 05/21/21 18:00 ABG HCO3 25.4 mmol/L (20.0-26.0) 05/21/21 18:00 ABG O2 Saturation 97.1 % (95.0-99.0) 05/21/21 18:00 ABG O2 Content 9.0 (0.0-44) 05/21/21 18:00 ABG Base Excess 2.1 mmol/L (-2.0-3.0) 05/21/21 18:00 ABG Hemoglobin 6.7 gm/dl (14.0-18.0) L 05/21/21 18:00 ABG Carboxyhemoglobin 2.1 % (0.0-5.0) 05/21/21 18:00 ABG Methemoglobin 0.3 % (0.0-1.5) 05/21/21 18:00 Oxyhemoglobin 94.8 % (95.0-99.0) L 05/21/21 18:00 FiO2 40 % 05/21/21 18:00 Sodium 136 mmol/L (137-145) L 05/22/21 05:05 Potassium 5.2 mmol/L (3.6-5.0) H 05/22/21 05:05 Chloride 103.5 mmol/L (98-107) 05/22/21 05:05 Carbon Dioxide 22 mmol/L (22-30) 05/22/21 05:05 Anion Gap 16 mmol/L 05/22/21 05:05 BUN 59 mg/dL (9-20) H 05/22/21 05:05 Creatinine 2.6 mg/dL (0.8-1.3) H 05/22/21 05:05 Estimated GFR 26 ml/min 05/22/21 05:05 BUN/Creatinine Ratio 23 % 05/22/21 05:05 Glucose 138 mg/dL (75-100) H 05/22/21 05:05 POC Glucose 110 mg/dL (70-105) H 05/22/21 06:07 Lactic Acid 0.90 mmol/L (0.7-2.0) 05/20/21 09:17 Calcium 8.4 mg/dL (8.4-10.2) 05/22/21 05:05 Phosphorus 4.00 mg/dL (2.5-4.5) 05/14/21 15:44 Magnesium 2.00 mg/dL (1.7-2.3) 05/14/21 15:44 Ferritin 640.2 ng/mL (30.0-300.0) H 05/12/21 07:19 Total Bilirubin 0.60 mg/dL (0.1-1.2) 05/16/21 10:21 AST 34 units/L (5-40) 05/16/21 10:21 ALT 51 units/L (7-56) 05/16/21 10:21 Alkaline Phosphatase 74 units/L (35-129) 05/16/21 10:21 Lactate Dehydrogenase 314 units/L (91-180) H 05/12/21 07:19 Total Creatine Kinase 406 units/L (55-170) H 05/04/21 08:42 Troponin T 0.400 ng/mL (0.00-0.029) H* D 05/16/21 18:40 C-Reactive Protein 1.60 mg/dL (0.00-1.30) H 05/12/21 07:19 Total Protein 7.4 g/dL (6.3-8.2) 05/16/21 10:21 Albumin 3.1 g/dL (3.9-5) L 05/16/21 10:21 Albumin/Globulin Ratio 0.7 % 05/16/21 10:21 Triglycerides 144 mg/dL (2-149) 05/10/21 04:57 Cholesterol 140 mg/dL (50-199) 05/04/21 07:25 LDL Cholesterol Direct 89 mg/dL (50-130) 05/04/21 07:25 HDL Cholesterol 48 mg/dL (40-59) 05/04/21 07:25 Cholesterol/HDL Ratio 2.91 % 05/04/21 07:25 Procalcitonin 0.63 ng/mL (<0.15) 05/09/21 15:53 Urine Color Yellow (Yellow) 05/09/21 13:22 Urine Turbidity Turbid (Clear) 05/09/21 13:22 Urine pH 5.0 (5.0-7.0) 05/09/21 13:22 Ur Specific Dexter 1.018 (1.003-1.030) 05/09/21 13:22 Urine Protein 100 mg/dl mg/dL (Negative) 05/09/21 13:22 Urine Glucose (UA) Neg mg/dL (Negative) 05/09/21 13:22 Urine Ketones Tr mg/dL (Negative) 05/09/21 13:22 Urine Blood Mod (Negative) 05/09/21 13:22 Urine Nitrite Neg (Negative) 05/09/21 13:22 Urine Bilirubin Neg (Negative) 05/09/21 13:22 Urine Urobilinogen < 2.0 mg/dL (<2.0) 05/09/21 13:22 Ur Leukocyte Esterase Mod (Negative) 05/09/21 13:22 Urine WBC (Auto) 25.0 /HPF (0.0-6.0) H 05/09/21 13:22 Urine RBC (Auto) 8.0 /HPF (0.0-6.0) 05/09/21 13:22 U Epithel Cells (Auto) < 1.0 /HPF (0-13.0) 05/09/21 13:22 Urine Bacteria (Auto) 1+ /HPF (Negative) 05/09/21 00:40 Uric Acid Crystals Few 05/09/21 00:40 Triple Phos Crystals 2+ 05/09/21 13:22 Amorphous Crystals Few 05/09/21 00:40 Urine Mucus Few /HPF 05/09/21 00:40 Urine Creatinine 100.8 mg/dL (0.1-20.0) H 05/10/21 11:03 Protein/Creatinin Ratio 0.42 05/10/21 11:03 Urine Sodium 61 mmol/L 05/05/21 09:57 Urine Total Protein 42 mg/dL (5-11.8) H 05/10/21 11:03 Urine Opiates Screen Negative 05/04/21 Unknown Urine Methadone Screen Negative 05/04/21 Unknown Ur Barbiturates Screen Negative 05/04/21 Unknown Ur Phencyclidine Scrn Negative 05/04/21 Unknown Ur Amphetamines Screen Positive 05/04/21 Unknown U Benzodiazepines Scrn Negative 05/04/21 Unknown Urine Cocaine Screen Negative 05/04/21 Unknown U Marijuana (THC) Screen Negative 05/04/21 Unknown Drugs of Abuse Note Disclamer 05/04/21 Unknown Immunofix Electrophor see below 05/05/21 03:40 AUDRA Screen Negative (Negative) 05/05/21 03:40 Proteinase 3 (PR3) Ab <1.0 AI (<1.0) 05/05/21 03:40 Myeloperoxidase Ab <1.0 AI (<1.0) 05/05/21 03:40 Complement C3 72 mg/dL (82-185) L 05/05/21 03:40 Complement C4 17 mg/dL (15-53) 05/05/21 03:40 Coronavirus (PCR) Positive (Negative) A 05/05/21 08:30 Hepatitis A IgM Ab Non-reactive (NonReactive) 05/05/21 03:40 Hep Bs Antigen Non-reactive (Negative) 05/05/21 03:40 Hep B Core IgM Ab Non-reactive (NonReactive) 05/05/21 03:40 Hepatitis C Antibody Reactive (NonReactive) A 05/05/21 03:40 Microbiology: Microbiology 05/21/21 03:12 Peripheral/Venous Blood Culture - Preliminary Culture in Progress 05/21/21 02:22 Peripheral/Venous Blood Culture - Preliminary Culture in Progress Merino/IV: Voiding Method Condom Catheter Active Medications - Current Medications Current Medications: Generic Name Dose Route Start Last Admin Trade Name Freq PRN Reason Stop Dose Admin Acetaminophen 650 mg 05/04/21 12:34 05/22/21 00:42 Acetaminophen 325 Mg Tab PO 650 mg Q4H PRN Administration Pain MILD(1-3)/Fever >100.5/MARIA Acetaminophen 650 mg 05/07/21 16:00 05/11/21 16:25 Acetaminophen 650 Mg Rect Supp PA 650 mg Q4H PRN Administration Pain, Mild (1-3) Apixaban 5 mg 05/20/21 11:00 05/22/21 09:45 Apixaban 5 Mg Tab PO 5 mg Q12HR RISHI Administration Protocol Aspirin 81 mg 05/06/21 14:00 05/22/21 09:45 Aspirin 81 Mg Tab Chew PO 81 mg QDAY RISHI Administration Atorvastatin Calcium 40 mg 05/09/21 22:00 05/21/21 22:23 Atorvastatin 40 Mg Tab FEEDTUBE 40 mg QHS RISHI Administration Chlordiazepoxide HCl 75 mg 05/21/21 21:00 05/22/21 05:25 Chlordiazepoxide 25 Mg Cap PO 75 mg Q8HR RISHI Administration Dextrose 0 ml 05/09/21 10:49 05/14/21 06:55 Dextrose 10% *Hypoglycemia IV 250 ml PRN PRN Administration Hypoglycemia Famotidine 10 mg 05/17/21 10:00 05/22/21 09:45 Famotidine 10 Mg Tab FEEDTUBE 10 mg BID RISHI Administration Haloperidol Lactate 5 mg 05/09/21 18:32 05/18/21 19:52 Haloperidol Lactate 5 Mg/1 Ml Inj IV 5 mg Q6H PRN Administration Agitation Hydralazine HCl 50 mg 05/04/21 14:00 05/22/21 05:25 Hydralazine 25 Mg Tab PO 50 mg Q8HR RISHI Administration Hydrophilic Ointment 1 applic 05/05/21 15:21 Lip Therapy Vaseline TP Q2HR PRN Dry Lips Cefepime HCl 2 gm in 100 mls @ 200 mls/hr 05/18/21 18:00 05/21/21 18:30 Cefepime/Ns 2 Gm/100 Ml IV 05/25/21 18:29 200 mls/hr Q24H RISHI Administration Protocol Sodium Chloride 1,000 mls @ 75 mls/hr 05/21/21 15:15 05/21/21 16:45 Nacl 0.9% 1000 Ml IV 75 mls/hr DIRECT RISHI Administration Insulin Human Lispro 0 unit 05/10/21 09:40 05/12/21 16:49 Insulin Lispro 100 Unit/Ml SUB-Q 2 unit Q6HR PRN Administration Hyperglycemia Protocol Labetalol HCl 10 mg 05/15/21 10:24 Labetalol 20 Mg/4 Ml Inj IV Q4H PRN sbp> 160. Lorazepam 4 mg 05/21/21 18:37 Lorazepam 2 Mg/Ml Vial IV Q15MIN PRN CIWA-Ar >25 Lorazepam 4 mg 05/21/21 18:37 Lorazepam 2 Mg/Ml Vial IV Q1H PRN CIWA-Ar 16-25 Lorazepam 2 mg 05/21/21 18:37 05/22/21 05:26 Lorazepam 2 Mg/Ml Vial IV 2 mg Q1H PRN Administration CIWA-Ar 8-15 Metoprolol Tartrate 50 mg 05/10/21 14:00 05/22/21 09:49 Metoprolol Tartrate 50 Mg Tab FEEDTUBE 50 mg TID RISHI Administration Multi-Ingred Cream/Lotion/Oil/Oint 1 applic 05/05/21 15:21 Mineral Oil/Petrolatum, White Ophth Oint 3.5 Gm OU Q4HR PRN Dry Eye(s) Ondansetron HCl 4 mg 05/04/21 12:34 05/04/21 21:51 Ondansetron 4 Mg/2 Ml Inj IV 4 mg Q8H PRN Administration Nausea And Vomiting Quetiapine Fumarate 150 mg 05/21/21 22:00 05/22/21 09:49 Quetiapine 100 Mg Tab PO 150 mg BID RISHI Administration Senna/Docusate Sodium 1 tab 05/05/21 22:00 05/22/21 09:45 Sennosides/Docusate Sodium 8.6/50 Mg Tab FEEDTUBE 1 tab BID RISHI Administration Sodium Chloride 10 ml 05/04/21 22:00 05/22/21 09:49 Sodium Chloride 0.9% 10 Ml Flush Syringe IV 10 ml BID RISHI Administration Sodium Chloride 10 ml 05/04/21 12:34 05/06/21 13:59 Sodium Chloride 0.9% 10 Ml Flush Syringe IV 10 ml PRN PRN Administration LINE FLUSH Sodium Chloride 10 ml 05/09/21 09:46 Sodium Chloride 0.9% 50 Ml Ivpb IV PRN PRN FLUSH Nutrition/Malnutrition Assess - Dietary Evaluation Nutrition/Malnutrition Findings: Nutrition Notes Start: 05/05/21 16:15 Freq: Status: Active Protocol: Document 05/20/21 15:29 [email or web address] (Rec: 05/20/21 15:34 NHALL [id number]) Nutrition Notes Initial or Follow up Reassessment Current Diagnosis Acute Kidney Injury, Hypertension,Heart Failure, Respiratory Failure Other Pertinent Diagnosis Severe COVID-19 pneu, metabolic encephalopathy, polysubstance dependence Current Diet TF - Promote at 60ml/hr Labs/Tests BUN 31 Cr 2.1 BG range since last assessment : 90-130 Na 137 Pertinent Medications reviewed Height 5 ft 7 in Weight 81.647 kg [place] Body Weight (kg) 67.27 BMI 28.1 Weight Status Overweight Subjective/Other Information Pt extubated on 05/18. [facility] evaluation ordered yesterday. #1 Nutrition Diagnosis Inadequate oral intake Diagnosis Progress(for reassessment Continues documentation) Is patient on ventilator? No Is Patient Ambulatory and/or Out of Bed No REE-([facility]-confined to bed) [phone] Calculation Used for Recommendations [facility] Additional Notes Pro needs 1.2-2g/k-163g/ day Fluid needs 1ml/kcal Nutrition Intervention Nutrition Support: Continue Promote at 60ml/hr. Decrease water flush to 50ml q4h. Kcal 1,440 Protein (gm) 90 Carbohydrates (gm) 187 Fat (gm) 37 Fluid (mL) 1,208 Fiber (gm) 0 Goal #1 TF tolerance Goal #2 TF to meet at least 75% energy and pro needs Follow-Up By: 05/23/21 Additional Comments F/U: [facility] eval results, TF tolerance
--- NOTE | 2021-05-22 14:06 | Progress Note ---
Assessment and Plan Acute hypoxic resp failure on MVS COVID positive NSTEMI Acute kidney injury Cardiomyopathy EF 35-40% History of hepatitis C Elevated D-dimer Tobacco abuse Polysubstance abusepatient with positive methamphetamines and has a history of cocaine use Anemia - continue Librium back at 75 mg po q8h - increased Seroquel to 250 mg po bid - tentative re-intubation if decompensates - continue BIPAP RTC for now - continue to use CIWA protocol drugs for sedation - continue care as below otherwise; - continue to follow electrolytes / I's & O's re: Azotemia - continue to wean supplemental oxygen for target O2 sat's > 90% acutely - aspiration precautions - continue bronchodilators with pulmonary hygiene per RT - wean per pulmonary driven protocols otherwise - avoid nephrotoxins, renally dose all medications - AB's per ID recommendations - continue accuchecks with glycemic control per SSI (While critically ill target blood glucose of 140-180 mg/dL; avoid hypoglycemia) - sedation prn for target RASS 0 to -1 - continue to avoid benzodiazepine's, reduce the possibility of delirium - prn analgesia per CPOT score - Maintenance of sleep-wake cycle, avoid delirium - continue enteral nutritional support at goal rate as tolerated - G.I. & VTE prophylaxis - PT/OT/ROM exercises - continue mobility protocols for pressure ulcer prophylaxis - Monitor hemodynamics closely - continue other care per attending / other consultants - discharge planning ongoing concurrently COVID SPECIFIC INTERVENTIONS - Remdesivir not administered secondary to renal failure - continue systemic steroids for severe COVID-19 infection empirically (Dexamethasone) - follow repeat COVID tests results - zinc and vitamin C supplementation - Monitor inflammatory markers per facility protocol - ferritin, Ddimer, CRP - therapeutic anticoagulation per system Protocol based on d-dimer and clinical considerations (on therapeutic heparin for NSTEMI) - Continue contact and airborne isolation .... Re-evaluate in am & prn CONDITION: CRITICAL PROGNOSIS: GUARDED CODE STATUS: FULL CODE The high probability of a clinically significant, sudden or life-threatening deterioration of the [respiratory, cardiovascular & neurologic] system(s) required my full and direct attention, intervention and personal management. The aggregate critical care time was [34] minutes without overlap. Time includes spent on; [x] Data Review and interpretation [x] Patient assessment and monitoring of vital signs [x] Documentation [x] Medication orders and management Subjective Date of service: 05/22/21 Principal diagnosis: AHRF; COVID-19 infection; NSTEMI; YE; HFrEF (35-40%); Polysubstance abuse Interval history: Patient is seen today for: Acute hypoxemic Resp failure; COVID-19 infection; NST BERENICE; YE; HFrEF (35-40%); Polysubstance abuse; Anemia Seen and examined at bedside; 24hour events reviewed; nursing and respiratory care staff consulted; no adverse overnight events reported to me; resting in bed; work of breathing a little improved; no emesis or overt aspiration; afebrile; no gross G.I. bleeding reported Objective Vital Signs - 12hr 05/22/21 05/22/21 05/22/21 03:00 04:00 05:00 Temperature 99.2 F Pulse Rate 81 81 79 Pulse Rate [ 82 From Monitor] Respiratory 37 H 36 H 38 H Rate Blood Pressure 107/73 103/70 103/70 O2 Sat by Pulse 96 93 93 Oximetry 05/22/21 05/22/21 05/22/21 05:25 06:00 07:39 Temperature 99.3 F Pulse Rate 79 77 Pulse Rate [ From Monitor] Respiratory 32 H Rate Blood Pressure 113/69 114/68 O2 Sat by Pulse 95 Oximetry 05/22/21 05/22/21 05/22/21 09:31 09:49 12:18 Temperature 100.5 F H Pulse Rate 89 89 Pulse Rate [ From Monitor] Respiratory 31 H Rate Blood Pressure 151/91 141/84 O2 Sat by Pulse 99 Oximetry 05/22/21 13:57 Temperature Pulse Rate 89 Pulse Rate [ From Monitor] Respiratory 42 H Rate Blood Pressure 122/80 O2 Sat by Pulse 100 Oximetry Constitutional: appears uncomfortable, other (middle aged male with moderately increased respiratory effort at rest) Eyes: non-icteric ENT: other (BIPAP FFM) Neck: supple, no lymphadenopathy, no JVD Effort: mildly labored Ascultation: Bilateral: diminished breath sounds, rhonchi (bases) Percussion: Bilateral: not dull Cardiovascular: regular rate and rhythm, other (S1,S2) Gastrointestinal: normoactive bowel sounds, soft, non-tender, non-distended Integumentary: normal Extremities: no cyanosis, no edema, pulses normal Neurologic: non-focal exam (grossly), unable to assess (sedated) Psychiatric: other CBC and BMP: 05/24/21 04:11 05/24/21 04:11 ABG, PT/INR, D-dimer: ABG ABG pH 7.500 pH Units (7.350-7.450) H 05/21/21 18:00 ABG pCO2 33.4 mm Hg 05/21/21 18:00 ABG pO2 56.6 mm Hg (80.0-90.0) L 05/21/21 18:00 ABG O2 Saturation 97.1 % (95.0-99.0) 05/21/21 18:00 PT/INR, D-dimer PT 13.6 Sec. (12.2-14.9) 05/19/21 19:36 INR 0.94 (0.87-1.13) 05/19/21 19:36 D-Dimer 2730.61 ng/mlDDU (0-234) H 05/12/21 07:19 Abnormal lab findings: Abnormal Labs 05/04/21 05/04/21 05/04/21 07:25 07:25 07:25 WBC 12.9 H RBC 3.04 L Hgb 9.5 L Hct 28.4 L MCV MCHC RDW 15.4 H Lymph % (Auto) 11.4 L [place] % (Auto) 10.1 H Lymph # (Auto) [place] # (Auto) 1.3 H Seg Neutrophils % 78.0 H Seg Neuts % (Manual) Lymphocytes % (Manual) Monocytes % (Manual) Seg Neutrophils # 10.0 H Seg Neutrophils # Man Lymphocytes # (Manual) Monocytes # (Manual) PT 15.1 H APTT D-Dimer Heparin Anti-Xa Level ABG pH ABG pO2 ABG HCO3 ABG O2 Saturation ABG Base Excess ABG Hemoglobin Oxyhemoglobin Sodium 135 L Potassium Chloride Carbon Dioxide BUN 65 H Creatinine 3.4 H Glucose 118 H POC Glucose Calcium Ferritin Total Bilirubin 1.50 H AST 519 H ALT 475 H Lactate Dehydrogenase Total Creatine Kinase Troponin T 1.300 H* C-Reactive Protein Albumin Urine WBC (Auto) Urine Creatinine Urine Total Protein Complement C3 Coronavirus (PCR) Hepatitis C Antibody 05/04/21 05/04/21 05/04/21 07:25 08:42 08:42 WBC RBC Hgb Hct MCV MCHC RDW Lymph % (Auto) [place] % (Auto) Lymph # (Auto) [place] # (Auto) Seg Neutrophils % Seg Neuts % (Manual) Lymphocytes % (Manual) Monocytes % (Manual) Seg Neutrophils # Seg Neutrophils # Man Lymphocytes # (Manual) Monocytes # (Manual) PT APTT D-Dimer 579.49 H Heparin Anti-Xa Level ABG pH ABG pO2 ABG HCO3 ABG O2 Saturation ABG Base Excess ABG Hemoglobin Oxyhemoglobin Sodium Potassium Chloride Carbon Dioxide BUN Creatinine Glucose POC Glucose Calcium Ferritin Total Bilirubin AST ALT Lactate Dehydrogenase Total Creatine Kinase 406 H Troponin T 1.230 H* C-Reactive Protein Albumin Urine WBC (Auto) Urine Creatinine Urine Total Protein Complement C3 Coronavirus (PCR) Hepatitis C Antibody 05/04/21 05/04/21 05/04/21 10:13 13:34 18:14 WBC RBC Hgb 8.8 L Hct 26.6 L MCV MCHC RDW Lymph % (Auto) [place] % (Auto) Lymph # (Auto) [place] # (Auto) Seg Neutrophils % Seg Neuts % (Manual) Lymphocytes % (Manual) Monocytes % (Manual) Seg Neutrophils # Seg Neutrophils # Man Lymphocytes # (Manual) Monocytes # (Manual) PT APTT D-Dimer Heparin Anti-Xa Level < 0.10 L ABG pH ABG pO2 ABG HCO3 ABG O2 Saturation ABG Base Excess ABG Hemoglobin Oxyhemoglobin Sodium Potassium Chloride Carbon Dioxide BUN Creatinine Glucose POC Glucose Calcium Ferritin Total Bilirubin AST ALT Lactate Dehydrogenase Total Creatine Kinase Troponin T 1.400 H* C-Reactive Protein Albumin Urine WBC (Auto) Urine Creatinine Urine Total Protein Complement C3 Coronavirus (PCR) Hepatitis C Antibody 05/05/21 05/05/21 05/05/21 03:40 03:40 03:40 WBC RBC Hgb Hct MCV MCHC RDW Lymph % (Auto) [place] % (Auto) Lymph # (Auto) [place] # (Auto) Seg Neutrophils % Seg Neuts % (Manual) Lymphocytes % (Manual) Monocytes % (Manual) Seg Neutrophils # Seg Neutrophils # Man Lymphocytes # (Manual) Monocytes # (Manual) PT APTT D-Dimer Heparin Anti-Xa Level 0.11 L ABG pH ABG pO2 ABG HCO3 ABG O2 Saturation ABG Base Excess ABG Hemoglobin Oxyhemoglobin Sodium Potassium 3.3 L Chloride Carbon Dioxide BUN 59 H Creatinine 2.6 H Glucose 139 H POC Glucose Calcium Ferritin Total Bilirubin AST ALT Lactate Dehydrogenase Total Creatine Kinase Troponin T C-Reactive Protein Albumin Urine WBC (Auto) Urine Creatinine Urine Total Protein Complement C3 Coronavirus (PCR) Hepatitis C Antibody Reactive A 05/05/21 05/05/21 05/05/21 03:40 08:30 09:57 WBC RBC Hgb Hct MCV MCHC RDW Lymph % (Auto) [place] % (Auto) Lymph # (Auto) [place] # (Auto) Seg Neutrophils % Seg Neuts % (Manual) Lymphocytes % (Manual) Monocytes % (Manual) Seg Neutrophils # Seg Neutrophils # Man Lymphocytes # (Manual) Monocytes # (Manual) PT APTT D-Dimer Heparin Anti-Xa Level ABG pH ABG pO2 ABG HCO3 ABG O2 Saturation ABG Base Excess ABG Hemoglobin Oxyhemoglobin Sodium Potassium Chloride Carbon Dioxide BUN Creatinine Glucose POC Glucose Calcium Ferritin Total Bilirubin AST ALT Lactate Dehydrogenase Total Creatine Kinase Troponin T C-Reactive Protein Albumin Urine WBC (Auto) Urine Creatinine 100.8 H Urine Total Protein Complement C3 72 L Coronavirus (PCR) Positive A Hepatitis C Antibody 05/05/21 05/05/21 05/05/21 11:28 17:00 19:51 WBC RBC Hgb Hct MCV MCHC RDW Lymph % (Auto) [place] % (Auto) Lymph # (Auto) [place] # (Auto) Seg Neutrophils % Seg Neuts % (Manual) Lymphocytes % (Manual) Monocytes % (Manual) Seg Neutrophils # Seg Neutrophils # Man Lymphocytes # (Manual) Monocytes # (Manual) PT APTT D-Dimer Heparin Anti-Xa Level 0.10 L 0.22 L ABG pH 7.304 L ABG pO2 140.8 H ABG HCO3 ABG O2 Saturation ABG Base Excess -2.1 L ABG Hemoglobin 10.2 L Oxyhemoglobin Sodium Potassium Chloride Carbon Dioxide BUN Creatinine Glucose POC Glucose Calcium Ferritin Total Bilirubin AST ALT Lactate Dehydrogenase Total Creatine Kinase Troponin T C-Reactive Protein Albumin Urine WBC (Auto) Urine Creatinine Urine Total Protein Complement C3 Coronavirus (PCR) Hepatitis C Antibody 05/06/21 05/06/21 05/06/21 03:47 06:15 17:53 WBC RBC Hgb 9.0 L Hct 27.8 L MCV MCHC RDW Lymph % (Auto) [place] % (Auto) Lymph # (Auto) [place] # (Auto) Seg Neutrophils % Seg Neuts % (Manual) Lymphocytes % (Manual) Monocytes % (Manual) Seg Neutrophils # Seg Neutrophils # Man Lymphocytes # (Manual) Monocytes # (Manual) PT APTT D-Dimer Heparin Anti-Xa Level 0.10 L ABG pH ABG pO2 143.5 H ABG HCO3 ABG O2 Saturation ABG Base Excess -2.4 L ABG Hemoglobin 6.9 L Oxyhemoglobin Sodium Potassium Chloride Carbon Dioxide BUN Creatinine Glucose POC Glucose Calcium Ferritin Total Bilirubin AST ALT Lactate Dehydrogenase Total Creatine Kinase Troponin T C-Reactive Protein Albumin Urine WBC (Auto) Urine Creatinine Urine Total Protein Complement C3 Coronavirus (PCR) Hepatitis C Antibody 05/07/21 05/07/21 05/07/21 00:07 03:22 03:45 WBC RBC Hgb Hct MCV MCHC RDW Lymph % (Auto) [place] % (Auto) Lymph # (Auto) [place] # (Auto) Seg Neutrophils % Seg Neuts % (Manual) Lymphocytes % (Manual) Monocytes % (Manual) Seg Neutrophils # Seg Neutrophils # Man Lymphocytes # (Manual) Monocytes # (Manual) PT APTT D-Dimer Heparin Anti-Xa Level < 0.10 L ABG pH ABG pO2 104.3 H ABG HCO3 ABG O2 Saturation ABG Base Excess -2.6 L ABG Hemoglobin 9.1 L Oxyhemoglobin Sodium Potassium Chloride 107.1 H Carbon Dioxide 20 L BUN 56 H Creatinine 2.9 H Glucose POC Glucose Calcium Ferritin Total Bilirubin AST ALT Lactate Dehydrogenase Total Creatine Kinase Troponin T C-Reactive Protein Albumin Urine WBC (Auto) Urine Creatinine Urine Total Protein Complement C3 Coronavirus (PCR) Hepatitis C Antibody 05/07/21 05/07/21 05/07/21 07:44 16:28 22:41 WBC RBC Hgb Hct MCV MCHC RDW Lymph % (Auto) [place] % (Auto) Lymph # (Auto) [place] # (Auto) Seg Neutrophils % Seg Neuts % (Manual) Lymphocytes % (Manual) Monocytes % (Manual) Seg Neutrophils # Seg Neutrophils # Man Lymphocytes # (Manual) Monocytes # (Manual) PT APTT D-Dimer Heparin Anti-Xa Level < 0.10 L 0.10 L < 0.10 L ABG pH ABG pO2 ABG HCO3 ABG O2 Saturation ABG Base Excess ABG Hemoglobin Oxyhemoglobin Sodium Potassium Chloride Carbon Dioxide BUN Creatinine Glucose POC Glucose Calcium Ferritin Total Bilirubin AST ALT Lactate Dehydrogenase Total Creatine Kinase Troponin T C-Reactive Protein Albumin Urine WBC (Auto) Urine Creatinine Urine Total Protein Complement C3 Coronavirus (PCR) Hepatitis C Antibody 05/08/21 05/08/21 05/08/21 03:25 04:34 07:30 WBC 12.4 H RBC 3.02 L Hgb 9.5 L Hct 29.2 L MCV 97 H MCHC RDW 16.7 H Lymph % (Auto) 8.1 L [place] % (Auto) 11.0 H Lymph # (Auto) 1.0 L [place] # (Auto) 1.4 H Seg Neutrophils % 80.1 H Seg Neuts % (Manual) Lymphocytes % (Manual) Monocytes % (Manual) Seg Neutrophils # 9.9 H Seg Neutrophils # Man Lymphocytes # (Manual) Monocytes # (Manual) PT APTT D-Dimer Heparin Anti-Xa Level ABG pH ABG pO2 139.0 H ABG HCO3 ABG O2 Saturation ABG Base Excess ABG Hemoglobin 8.8 L Oxyhemoglobin Sodium Potassium Chloride 110.5 H Carbon Dioxide BUN 59 H Creatinine 2.8 H Glucose 103 H POC Glucose Calcium Ferritin Total Bilirubin AST ALT 327 H Lactate Dehydrogenase Total Creatine Kinase Troponin T C-Reactive Protein Albumin 3.1 L Urine WBC (Auto) Urine Creatinine Urine Total Protein Complement C3 Coronavirus (PCR) Hepatitis C Antibody 05/09/21 05/09/21 05/09/21 04:10 04:20 04:20 WBC 11.7 H RBC 2.79 L Hgb 8.7 L Hct 26.5 L MCV 95 H MCHC RDW 16.2 H Lymph % (Auto) [place] % (Auto) Lymph # (Auto) [place] # (Auto) Seg Neutrophils % Seg Neuts % (Manual) Lymphocytes % (Manual) Monocytes % (Manual) Seg Neutrophils # Seg Neutrophils # Man Lymphocytes # (Manual) Monocytes # (Manual) PT APTT D-Dimer Heparin Anti-Xa Level ABG pH ABG pO2 161.6 H ABG HCO3 ABG O2 Saturation ABG Base Excess ABG Hemoglobin 8.3 L Oxyhemoglobin Sodium 151 H Potassium Chloride 114.5 H Carbon Dioxide 21 L BUN 57 H Creatinine 2.4 H Glucose POC Glucose Calcium Ferritin Total Bilirubin AST ALT 210 H Lactate Dehydrogenase Total Creatine Kinase Troponin T C-Reactive Protein Albumin 2.9 L Urine WBC (Auto) Urine Creatinine Urine Total Protein Complement C3 Coronavirus (PCR) Hepatitis C Antibody 05/09/21 05/09/21 05/09/21 09:48 09:48 13:22 WBC 11.6 H RBC 3.00 L Hgb 9.0 L Hct 28.4 L MCV MCHC RDW 15.9 H Lymph % (Auto) 5.9 L [place] % (Auto) 8.9 H Lymph # (Auto) 0.7 L [place] # (Auto) 1.0 H Seg Neutrophils % 84.3 H Seg Neuts % (Manual) Lymphocytes % (Manual) Monocytes % (Manual) Seg Neutrophils # 9.8 H Seg Neutrophils # Man Lymphocytes # (Manual) Monocytes # (Manual) PT APTT D-Dimer Heparin Anti-Xa Level ABG pH ABG pO2 ABG HCO3 ABG O2 Saturation ABG Base Excess ABG Hemoglobin Oxyhemoglobin Sodium Potassium Chloride Carbon Dioxide BUN Creatinine Glucose POC Glucose Calcium Ferritin Total Bilirubin AST ALT Lactate Dehydrogenase Total Creatine Kinase Troponin T C-Reactive Protein 8.70 H Albumin Urine WBC (Auto) 25.0 H Urine Creatinine Urine Total Protein Complement C3 Coronavirus (PCR) Hepatitis C Antibody 05/09/21 05/09/21 05/10/21 15:20 18:16 04:57 WBC RBC 2.87 L Hgb 8.8 L Hct 27.0 L MCV MCHC RDW 15.9 H Lymph % (Auto) [place] % (Auto) Lymph # (Auto) [place] # (Auto) Seg Neutrophils % Seg Neuts % (Manual) Lymphocytes % (Manual) Monocytes % (Manual) Seg Neutrophils # Seg Neutrophils # Man Lymphocytes # (Manual) Monocytes # (Manual) PT APTT D-Dimer Heparin Anti-Xa Level ABG pH ABG pO2 102.0 H ABG HCO3 ABG O2 Saturation ABG Base Excess -2.8 L ABG Hemoglobin 9.0 L Oxyhemoglobin Sodium Potassium Chloride Carbon Dioxide BUN Creatinine Glucose POC Glucose 130 H Calcium Ferritin Total Bilirubin AST ALT Lactate Dehydrogenase Total Creatine Kinase Troponin T C-Reactive Protein Albumin Urine WBC (Auto) Urine Creatinine Urine Total Protein Complement C3 Coronavirus (PCR) Hepatitis C Antibody 05/10/21 05/10/21 05/10/21 04:57 04:57 04:57 WBC RBC Hgb Hct MCV MCHC RDW Lymph % (Auto) [place] % (Auto) Lymph # (Auto) [place] # (Auto) Seg Neutrophils % Seg Neuts % (Manual) Lymphocytes % (Manual) Monocytes % (Manual) Seg Neutrophils # Seg Neutrophils # Man Lymphocytes # (Manual) Monocytes # (Manual) PT APTT D-Dimer 1546.78 H Heparin Anti-Xa Level ABG pH ABG pO2 ABG HCO3 ABG O2 Saturation ABG Base Excess ABG Hemoglobin Oxyhemoglobin Sodium 148 H Potassium Chloride 114.9 H Carbon Dioxide 21 L BUN 57 H Creatinine 2.3 H Glucose 157 H POC Glucose Calcium Ferritin 888.2 H Total Bilirubin AST ALT Lactate Dehydrogenase 289 H Total Creatine Kinase Troponin T C-Reactive Protein 6.80 H Albumin Urine WBC (Auto) Urine Creatinine Urine Total Protein Complement C3 Coronavirus (PCR) Hepatitis C Antibody 05/10/21 05/10/21 05/10/21 05:09 08:04 11:03 WBC RBC Hgb Hct MCV MCHC RDW Lymph % (Auto) [place] % (Auto) Lymph # (Auto) [place] # (Auto) Seg Neutrophils % Seg Neuts % (Manual) Lymphocytes % (Manual) Monocytes % (Manual) Seg Neutrophils # Seg Neutrophils # Man Lymphocytes # (Manual) Monocytes # (Manual) PT APTT D-Dimer Heparin Anti-Xa Level ABG pH 7.473 H ABG pO2 114.6 H ABG HCO3 ABG O2 Saturation ABG Base Excess ABG Hemoglobin 9.5 L Oxyhemoglobin Sodium Potassium Chloride Carbon Dioxide BUN Creatinine Glucose POC Glucose 152 H Calcium Ferritin Total Bilirubin AST ALT Lactate Dehydrogenase Total Creatine Kinase Troponin T C-Reactive Protein Albumin Urine WBC (Auto) Urine Creatinine 100.8 H Urine Total Protein 42 H Complement C3 Coronavirus (PCR) Hepatitis C Antibody 05/10/21 05/10/21 05/10/21 13:07 18:01 23:31 WBC RBC Hgb Hct MCV MCHC RDW Lymph % (Auto) [place] % (Auto) Lymph # (Auto) [place] # (Auto) Seg Neutrophils % Seg Neuts % (Manual) Lymphocytes % (Manual) Monocytes % (Manual) Seg Neutrophils # Seg Neutrophils # Man Lymphocytes # (Manual) Monocytes # (Manual) PT APTT D-Dimer Heparin Anti-Xa Level ABG pH ABG pO2 ABG HCO3 ABG O2 Saturation ABG Base Excess ABG Hemoglobin Oxyhemoglobin Sodium Potassium Chloride Carbon Dioxide BUN Creatinine Glucose POC Glucose 150 H 189 H 142 H Calcium Ferritin Total Bilirubin AST ALT Lactate Dehydrogenase Total Creatine Kinase Troponin T C-Reactive Protein Albumin Urine WBC (Auto) Urine Creatinine Urine Total Protein Complement C3 Coronavirus (PCR) Hepatitis C Antibody 05/10/21 05/11/21 05/11/21 Unknown 05:25 06:53 WBC RBC Hgb Hct MCV MCHC RDW Lymph % (Auto) [place] % (Auto) Lymph # (Auto) [place] # (Auto) Seg Neutrophils % Seg Neuts % (Manual) Lymphocytes % (Manual) Monocytes % (Manual) Seg Neutrophils # Seg Neutrophils # Man Lymphocytes # (Manual) Monocytes # (Manual) PT APTT D-Dimer Heparin Anti-Xa Level ABG pH ABG pO2 126.6 H ABG HCO3 ABG O2 Saturation ABG Base Excess ABG Hemoglobin 9.2 L Oxyhemoglobin Sodium 150 H Potassium Chloride 116.6 H Carbon Dioxide 21 L BUN 62 H Creatinine 2.5 H Glucose 142 H POC Glucose 163 H Calcium Ferritin Total Bilirubin AST ALT Lactate Dehydrogenase Total Creatine Kinase Troponin T C-Reactive Protein Albumin Urine WBC (Auto) Urine Creatinine Urine Total Protein Complement C3 Coronavirus (PCR) Hepatitis C Antibody 05/11/21 05/11/21 05/11/21 06:53 11:06 13:51 WBC RBC 3.07 L Hgb 9.3 L Hct 29.0 L MCV 95 H MCHC RDW 16.1 H Lymph % (Auto) [place] % (Auto) Lymph # (Auto) [place] # (Auto) Seg Neutrophils % Seg Neuts % (Manual) Lymphocytes % (Manual) Monocytes % (Manual) Seg Neutrophils # Seg Neutrophils # Man Lymphocytes # (Manual) Monocytes # (Manual) PT APTT D-Dimer Heparin Anti-Xa Level ABG pH ABG pO2 74.9 L ABG HCO3 ABG O2 Saturation ABG Base Excess -3.3 L ABG Hemoglobin 10.8 L Oxyhemoglobin Sodium Potassium Chloride Carbon Dioxide BUN Creatinine Glucose POC Glucose 145 H Calcium Ferritin Total Bilirubin AST ALT Lactate Dehydrogenase Total Creatine Kinase Troponin T C-Reactive Protein Albumin Urine WBC (Auto) Urine Creatinine Urine Total Protein Complement C3 Coronavirus (PCR) Hepatitis C Antibody 05/11/21 05/11/21 05/11/21 14:43 14:43 15:47 WBC RBC Hgb 9.2 L Hct 29.7 L MCV MCHC RDW Lymph % (Auto) [place] % (Auto) Lymph # (Auto) [place] # (Auto) Seg Neutrophils % Seg Neuts % (Manual) Lymphocytes % (Manual) Monocytes % (Manual) Seg Neutrophils # Seg Neutrophils # Man Lymphocytes # (Manual) Monocytes # (Manual) PT 15.6 H APTT D-Dimer Heparin Anti-Xa Level ABG pH ABG pO2 ABG HCO3 ABG O2 Saturation ABG Base Excess ABG Hemoglobin Oxyhemoglobin Sodium Potassium Chloride Carbon Dioxide BUN Creatinine Glucose POC Glucose 137 H Calcium Ferritin Total Bilirubin AST ALT Lactate Dehydrogenase Total Creatine Kinase Troponin T C-Reactive Protein Albumin Urine WBC (Auto) Urine Creatinine Urine Total Protein Complement C3 Coronavirus (PCR) Hepatitis C Antibody 05/12/21 05/12/21 05/12/21 00:04 05:07 07:19 WBC 11.9 H RBC 3.00 L Hgb 9.1 L Hct 28.9 L MCV 96 H MCHC RDW 16.7 H Lymph % (Auto) 11.5 L [place] % (Auto) 8.2 H Lymph # (Auto) [place] # (Auto) 1.0 H Seg Neutrophils % 80.0 H Seg Neuts % (Manual) Lymphocytes % (Manual) Monocytes % (Manual) Seg Neutrophils # 9.6 H Seg Neutrophils # Man Lymphocytes # (Manual) Monocytes # (Manual) PT APTT D-Dimer Heparin Anti-Xa Level ABG pH ABG pO2 ABG HCO3 ABG O2 Saturation ABG Base Excess ABG Hemoglobin Oxyhemoglobin Sodium Potassium Chloride Carbon Dioxide BUN Creatinine Glucose POC Glucose 121 H 117 H Calcium Ferritin Total Bilirubin AST ALT Lactate Dehydrogenase Total Creatine Kinase Troponin T C-Reactive Protein Albumin Urine WBC (Auto) Urine Creatinine Urine Total Protein Complement C3 Coronavirus (PCR) Hepatitis C Antibody 05/12/21 05/12/21 05/12/21 07:19 07:19 07:19 WBC RBC Hgb Hct MCV MCHC RDW Lymph % (Auto) [place] % (Auto) Lymph # (Auto) [place] # (Auto) Seg Neutrophils % Seg Neuts % (Manual) Lymphocytes % (Manual) Monocytes % (Manual) Seg Neutrophils # Seg Neutrophils # Man Lymphocytes # (Manual) Monocytes # (Manual) PT APTT D-Dimer 2730.61 H Heparin Anti-Xa Level ABG pH ABG pO2 ABG HCO3 ABG O2 Saturation ABG Base Excess ABG Hemoglobin Oxyhemoglobin Sodium 146 H Potassium 5.1 H Chloride 112.4 H Carbon Dioxide 21 L BUN 61 H Creatinine 2.2 H Glucose 136 H POC Glucose Calcium 8.1 L Ferritin 640.2 H Total Bilirubin AST ALT Lactate Dehydrogenase 314 H Total Creatine Kinase Troponin T C-Reactive Protein 1.60 H Albumin Urine WBC (Auto) Urine Creatinine Urine Total Protein Complement C3 Coronavirus (PCR) Hepatitis C Antibody 05/12/21 05/12/21 05/12/21 11:10 16:10 16:38 WBC RBC Hgb Hct MCV MCHC RDW Lymph % (Auto) [place] % (Auto) Lymph # (Auto) [place] # (Auto) Seg Neutrophils % Seg Neuts % (Manual) Lymphocytes % (Manual) Monocytes % (Manual) Seg Neutrophils # Seg Neutrophils # Man Lymphocytes # (Manual) Monocytes # (Manual) PT APTT D-Dimer Heparin Anti-Xa Level 0.20 L ABG pH ABG pO2 ABG HCO3 ABG O2 Saturation ABG Base Excess ABG Hemoglobin Oxyhemoglobin Sodium Potassium Chloride Carbon Dioxide BUN Creatinine Glucose POC Glucose 131 H 157 H Calcium Ferritin Total Bilirubin AST ALT Lactate Dehydrogenase Total Creatine Kinase Troponin T C-Reactive Protein Albumin Urine WBC (Auto) Urine Creatinine Urine Total Protein Complement C3 Coronavirus (PCR) Hepatitis C Antibody 05/12/21 05/13/21 05/13/21 23:30 00:12 04:20 WBC RBC Hgb Hct MCV MCHC RDW Lymph % (Auto) [place] % (Auto) Lymph # (Auto) [place] # (Auto) Seg Neutrophils % Seg Neuts % (Manual) Lymphocytes % (Manual) Monocytes % (Manual) Seg Neutrophils # Seg Neutrophils # Man Lymphocytes # (Manual) Monocytes # (Manual) PT APTT D-Dimer Heparin Anti-Xa Level 0.13 L ABG pH ABG pO2 ABG HCO3 ABG O2 Saturation ABG Base Excess ABG Hemoglobin Oxyhemoglobin Sodium Potassium Chloride 111.2 H Carbon Dioxide BUN 53 H Creatinine 1.9 H Glucose 121 H POC Glucose 115 H Calcium 8.3 L Ferritin Total Bilirubin AST ALT Lactate Dehydrogenase Total Creatine Kinase Troponin T C-Reactive Protein Albumin Urine WBC (Auto) Urine Creatinine Urine Total Protein Complement C3 Coronavirus (PCR) Hepatitis C Antibody 05/13/21 05/13/21 05/13/21 04:20 11:15 11:29 WBC 13.1 H RBC 2.86 L Hgb 8.5 L Hct 26.9 L MCV MCHC RDW 15.7 H Lymph % (Auto) [place] % (Auto) Lymph # (Auto) [place] # (Auto) Seg Neutrophils % Seg Neuts % (Manual) Lymphocytes % (Manual) Monocytes % (Manual) Seg Neutrophils # Seg Neutrophils # Man Lymphocytes # (Manual) Monocytes # (Manual) PT APTT D-Dimer Heparin Anti-Xa Level ABG pH 7.456 H ABG pO2 106.0 H ABG HCO3 ABG O2 Saturation ABG Base Excess ABG Hemoglobin 7.1 L Oxyhemoglobin Sodium Potassium Chloride Carbon Dioxide BUN Creatinine Glucose POC Glucose 121 H Calcium Ferritin Total Bilirubin AST ALT Lactate Dehydrogenase Total Creatine Kinase Troponin T C-Reactive Protein Albumin Urine WBC (Auto) Urine Creatinine Urine Total Protein Complement C3 Coronavirus (PCR) Hepatitis C Antibody 05/13/21 05/13/21 05/14/21 16:38 23:43 04:26 WBC 14.2 H RBC 3.11 L Hgb 9.4 L Hct 29.3 L MCV MCHC RDW 15.4 H Lymph % (Auto) [place] % (Auto) Lymph # (Auto) [place] # (Auto) Seg Neutrophils % Seg Neuts % (Manual) Lymphocytes % (Manual) Monocytes % (Manual) Seg Neutrophils # Seg Neutrophils # Man Lymphocytes # (Manual) Monocytes # (Manual) PT APTT D-Dimer Heparin Anti-Xa Level ABG pH ABG pO2 ABG HCO3 ABG O2 Saturation ABG Base Excess ABG Hemoglobin Oxyhemoglobin Sodium Potassium Chloride Carbon Dioxide BUN Creatinine Glucose POC Glucose 119 H 55 L Calcium Ferritin Total Bilirubin AST ALT Lactate Dehydrogenase Total Creatine Kinase Troponin T C-Reactive Protein Albumin Urine WBC (Auto) Urine Creatinine Urine Total Protein Complement C3 Coronavirus (PCR) Hepatitis C Antibody 05/14/21 05/14/21 05/14/21 04:26 05:26 06:51 WBC RBC Hgb Hct MCV MCHC RDW Lymph % (Auto) [place] % (Auto) Lymph # (Auto) [place] # (Auto) Seg Neutrophils % Seg Neuts % (Manual) Lymphocytes % (Manual) Monocytes % (Manual) Seg Neutrophils # Seg Neutrophils # Man Lymphocytes # (Manual) Monocytes # (Manual) PT APTT D-Dimer Heparin Anti-Xa Level ABG pH ABG pO2 ABG HCO3 ABG O2 Saturation ABG Base Excess ABG Hemoglobin Oxyhemoglobin Sodium Potassium 3.4 L Chloride 107.6 H Carbon Dioxide BUN 42 H Creatinine 1.9 H Glucose POC Glucose 51 L 62 L Calcium Ferritin Total Bilirubin AST ALT Lactate Dehydrogenase Total Creatine Kinase Troponin T C-Reactive Protein Albumin Urine WBC (Auto) Urine Creatinine Urine Total Protein Complement C3 Coronavirus (PCR) Hepatitis C Antibody 05/14/21 05/14/21 05/14/21 09:58 12:05 12:08 WBC RBC Hgb Hct MCV MCHC RDW Lymph % (Auto) [place] % (Auto) Lymph # (Auto) [place] # (Auto) Seg Neutrophils % Seg Neuts % (Manual) Lymphocytes % (Manual) Monocytes % (Manual) Seg Neutrophils # Seg Neutrophils # Man Lymphocytes # (Manual) Monocytes # (Manual) PT APTT D-Dimer Heparin Anti-Xa Level ABG pH ABG pO2 ABG HCO3 ABG O2 Saturation ABG Base Excess ABG Hemoglobin Oxyhemoglobin Sodium Potassium 3.4 L Chloride Carbon Dioxide BUN 36 H Creatinine 1.8 H Glucose 133 H POC Glucose 60 L 127 H Calcium Ferritin Total Bilirubin AST ALT Lactate Dehydrogenase Total Creatine Kinase Troponin T C-Reactive Protein Albumin Urine WBC (Auto) Urine Creatinine Urine Total Protein Complement C3 Coronavirus (PCR) Hepatitis C Antibody 05/14/21 05/14/21 05/15/21 17:20 23:37 05:34 WBC RBC Hgb Hct MCV MCHC RDW Lymph % (Auto) [place] % (Auto) Lymph # (Auto) [place] # (Auto) Seg Neutrophils % Seg Neuts % (Manual) Lymphocytes % (Manual) Monocytes % (Manual) Seg Neutrophils # Seg Neutrophils # Man Lymphocytes # (Manual) Monocytes # (Manual) PT APTT D-Dimer Heparin Anti-Xa Level ABG pH ABG pO2 ABG HCO3 ABG O2 Saturation ABG Base Excess ABG Hemoglobin Oxyhemoglobin Sodium Potassium Chloride Carbon Dioxide BUN Creatinine Glucose POC Glucose 144 H 115 H 119 H Calcium Ferritin Total Bilirubin AST ALT Lactate Dehydrogenase Total Creatine Kinase Troponin T C-Reactive Protein Albumin Urine WBC (Auto) Urine Creatinine Urine Total Protein Complement C3 Coronavirus (PCR) Hepatitis C Antibody 05/15/21 05/15/21 05/15/21 07:26 07:26 14:35 WBC 13.8 H RBC 3.32 L Hgb 10.0 L Hct 31.2 L MCV MCHC RDW 16.0 H Lymph % (Auto) [place] % (Auto) Lymph # (Auto) [place] # (Auto) Seg Neutrophils % Seg Neuts % (Manual) Lymphocytes % (Manual) Monocytes % (Manual) Seg Neutrophils # Seg Neutrophils # Man Lymphocytes # (Manual) Monocytes # (Manual) PT APTT D-Dimer Heparin Anti-Xa Level ABG pH ABG pO2 ABG HCO3 ABG O2 Saturation ABG Base Excess ABG Hemoglobin Oxyhemoglobin Sodium 149 H D Potassium 3.5 L Chloride 113.2 H Carbon Dioxide BUN 29 H Creatinine 1.8 H Glucose 113 H POC Glucose 143 H Calcium Ferritin Total Bilirubin AST ALT Lactate Dehydrogenase Total Creatine Kinase Troponin T C-Reactive Protein Albumin Urine WBC (Auto) Urine Creatinine Urine Total Protein Complement C3 Coronavirus (PCR) Hepatitis C Antibody 05/16/21 05/16/21 05/16/21 06:12 08:43 10:05 WBC RBC Hgb Hct MCV MCHC RDW Lymph % (Auto) [place] % (Auto) Lymph # (Auto) [place] # (Auto) Seg Neutrophils % Seg Neuts % (Manual) Lymphocytes % (Manual) Monocytes % (Manual) Seg Neutrophils # Seg Neutrophils # Man Lymphocytes # (Manual) Monocytes # (Manual) PT APTT D-Dimer Heparin Anti-Xa Level 0.21 L ABG pH ABG pO2 240.8 H ABG HCO3 ABG O2 Saturation 99.4 H ABG Base Excess -2.6 L ABG Hemoglobin 10.7 L Oxyhemoglobin Sodium Potassium Chloride Carbon Dioxide BUN Creatinine Glucose POC Glucose 34 L Calcium Ferritin Total Bilirubin AST ALT Lactate Dehydrogenase Total Creatine Kinase Troponin T C-Reactive Protein Albumin Urine WBC (Auto) Urine Creatinine Urine Total Protein Complement C3 Coronavirus (PCR) Hepatitis C Antibody 05/16/21 05/16/21 05/16/21 10:21 10:21 13:14 WBC 27.6 H RBC Hgb 11.4 L Hct MCV 99 H MCHC 30 L RDW 18.1 H Lymph % (Auto) [place] % (Auto) Lymph # (Auto) [place] # (Auto) Seg Neutrophils % Seg Neuts % (Manual) 83.0 H Lymphocytes % (Manual) 4.0 L Monocytes % (Manual) 9.0 H Seg Neutrophils # Seg Neutrophils # Man 22.9 H Lymphocytes # (Manual) 1.1 L Monocytes # (Manual) 2.5 H PT APTT D-Dimer Heparin Anti-Xa Level ABG pH ABG pO2 ABG HCO3 ABG O2 Saturation ABG Base Excess ABG Hemoglobin Oxyhemoglobin Sodium Potassium Chloride 108.8 H Carbon Dioxide 17 L BUN 26 H Creatinine 1.9 H Glucose 141 H POC Glucose Calcium Ferritin Total Bilirubin AST ALT Lactate Dehydrogenase Total Creatine Kinase Troponin T 0.503 H* C-Reactive Protein Albumin 3.1 L Urine WBC (Auto) Urine Creatinine Urine Total Protein Complement C3 Coronavirus (PCR) Hepatitis C Antibody 05/16/21 05/17/21 05/17/21 18:40 00:02 04:52 WBC RBC Hgb 8.8 L Hct 28.5 L D MCV MCHC RDW Lymph % (Auto) [place] % (Auto) Lymph # (Auto) [place] # (Auto) Seg Neutrophils % Seg Neuts % (Manual) Lymphocytes % (Manual) Monocytes % (Manual) Seg Neutrophils # Seg Neutrophils # Man Lymphocytes # (Manual) Monocytes # (Manual) PT APTT D-Dimer Heparin Anti-Xa Level ABG pH ABG pO2 ABG HCO3 ABG O2 Saturation ABG Base Excess ABG Hemoglobin Oxyhemoglobin Sodium Potassium Chloride Carbon Dioxide BUN Creatinine Glucose POC Glucose 114 H Calcium Ferritin Total Bilirubin AST ALT Lactate Dehydrogenase Total Creatine Kinase Troponin T 0.400 H* D C-Reactive Protein Albumin Urine WBC (Auto) Urine Creatinine Urine Total Protein Complement C3 Coronavirus (PCR) Hepatitis C Antibody 05/17/21 05/17/21 05/17/21 04:52 05:15 06:50 WBC RBC Hgb Hct MCV MCHC RDW Lymph % (Auto) [place] % (Auto) Lymph # (Auto) [place] # (Auto) Seg Neutrophils % Seg Neuts % (Manual) Lymphocytes % (Manual) Monocytes % (Manual) Seg Neutrophils # Seg Neutrophils # Man Lymphocytes # (Manual) Monocytes # (Manual) PT APTT D-Dimer Heparin Anti-Xa Level ABG pH ABG pO2 193.7 H ABG HCO3 27.7 H ABG O2 Saturation 99.2 H ABG Base Excess 3.4 H ABG Hemoglobin 9.2 L Oxyhemoglobin Sodium 146 H Potassium Chloride 110.3 H Carbon Dioxide BUN 33 H Creatinine 2.3 H Glucose 120 H POC Glucose 109 H Calcium Ferritin Total Bilirubin AST ALT Lactate Dehydrogenase Total Creatine Kinase Troponin T C-Reactive Protein Albumin Urine WBC (Auto) Urine Creatinine Urine Total Protein Complement C3 Coronavirus (PCR) Hepatitis C Antibody 05/17/21 05/17/21 05/17/21 10:30 11:33 15:35 WBC RBC Hgb Hct MCV MCHC RDW Lymph % (Auto) [place] % (Auto) Lymph # (Auto) [place] # (Auto) Seg Neutrophils % Seg Neuts % (Manual) Lymphocytes % (Manual) Monocytes % (Manual) Seg Neutrophils # Seg Neutrophils # Man Lymphocytes # (Manual) Monocytes # (Manual) PT APTT D-Dimer Heparin Anti-Xa Level ABG pH 7.457 H ABG pO2 162.5 H 103.7 H ABG HCO3 27.7 H 27.5 H ABG O2 Saturation ABG Base Excess 3.6 H ABG Hemoglobin 10.1 L 11.5 L Oxyhemoglobin Sodium Potassium Chloride Carbon Dioxide BUN Creatinine Glucose POC Glucose 122 H Calcium Ferritin Total Bilirubin AST ALT Lactate Dehydrogenase Total Creatine Kinase Troponin T C-Reactive Protein Albumin Urine WBC (Auto) Urine Creatinine Urine Total Protein Complement C3 Coronavirus (PCR) Hepatitis C Antibody 05/17/21 05/17/21 05/17/21 16:21 18:18 23:29 WBC RBC Hgb 9.6 L Hct 30.3 L MCV MCHC RDW Lymph % (Auto) [place] % (Auto) Lymph # (Auto) [place] # (Auto) Seg Neutrophils % Seg Neuts % (Manual) Lymphocytes % (Manual) Monocytes % (Manual) Seg Neutrophils # Seg Neutrophils # Man Lymphocytes # (Manual) Monocytes # (Manual) PT APTT D-Dimer Heparin Anti-Xa Level ABG pH ABG pO2 ABG HCO3 ABG O2 Saturation ABG Base Excess ABG Hemoglobin Oxyhemoglobin Sodium Potassium Chloride Carbon Dioxide BUN Creatinine Glucose POC Glucose 133 H 111 H Calcium Ferritin Total Bilirubin AST ALT Lactate Dehydrogenase Total Creatine Kinase Troponin T C-Reactive Protein Albumin Urine WBC (Auto) Urine Creatinine Urine Total Protein Complement C3 Coronavirus (PCR) Hepatitis C Antibody 05/18/21 05/18/21 05/18/21 04:15 04:15 05:01 WBC 16.8 H RBC 3.03 L Hgb 8.9 L Hct 28.7 L MCV 95 H MCHC 31 L RDW 16.4 H Lymph % (Auto) [place] % (Auto) Lymph # (Auto) [place] # (Auto) Seg Neutrophils % Seg Neuts % (Manual) Lymphocytes % (Manual) Monocytes % (Manual) Seg Neutrophils # Seg Neutrophils # Man Lymphocytes # (Manual) Monocytes # (Manual) PT APTT D-Dimer Heparin Anti-Xa Level ABG pH ABG pO2 ABG HCO3 ABG O2 Saturation ABG Base Excess ABG Hemoglobin Oxyhemoglobin Sodium Potassium Chloride Carbon Dioxide BUN 40 H Creatinine 2.1 H Glucose 115 H POC Glucose 113 H Calcium Ferritin Total Bilirubin AST ALT Lactate Dehydrogenase Total Creatine Kinase Troponin T C-Reactive Protein Albumin Urine WBC (Auto) Urine Creatinine Urine Total Protein Complement C3 Coronavirus (PCR) Hepatitis C Antibody 05/18/21 05/18/21 05/19/21 11:18 12:50 05:23 WBC 18.5 H RBC 3.31 L Hgb 9.9 L Hct 31.1 L MCV MCHC RDW 16.9 H Lymph % (Auto) [place] % (Auto) Lymph # (Auto) [place] # (Auto) Seg Neutrophils % Seg Neuts % (Manual) Lymphocytes % (Manual) Monocytes % (Manual) Seg Neutrophils # Seg Neutrophils # Man Lymphocytes # (Manual) Monocytes # (Manual) PT APTT D-Dimer Heparin Anti-Xa Level ABG pH ABG pO2 79.6 L ABG HCO3 28.0 H ABG O2 Saturation ABG Base Excess 3.3 H ABG Hemoglobin 6.2 L Oxyhemoglobin Sodium Potassium Chloride Carbon Dioxide BUN Creatinine Glucose POC Glucose 129 H Calcium Ferritin Total Bilirubin AST ALT Lactate Dehydrogenase Total Creatine Kinase Troponin T C-Reactive Protein Albumin Urine WBC (Auto) Urine Creatinine Urine Total Protein Complement C3 Coronavirus (PCR) Hepatitis C Antibody 05/19/21 05/19/21 05/19/21 05:23 05:23 11:24 WBC RBC Hgb Hct MCV MCHC RDW Lymph % (Auto) [place] % (Auto) Lymph # (Auto) [place] # (Auto) Seg Neutrophils % Seg Neuts % (Manual) Lymphocytes % (Manual) Monocytes % (Manual) Seg Neutrophils # Seg Neutrophils # Man Lymphocytes # (Manual) Monocytes # (Manual) PT APTT D-Dimer Heparin Anti-Xa Level ABG pH ABG pO2 ABG HCO3 ABG O2 Saturation ABG Base Excess ABG Hemoglobin Oxyhemoglobin Sodium Potassium Chloride Carbon Dioxide BUN 35 H 34 H Creatinine 2.0 H 2.1 H Glucose POC Glucose 111 H Calcium Ferritin Total Bilirubin AST ALT Lactate Dehydrogenase Total Creatine Kinase Troponin T C-Reactive Protein Albumin Urine WBC (Auto) Urine Creatinine Urine Total Protein Complement C3 Coronavirus (PCR) Hepatitis C Antibody 05/19/21 05/19/21 05/19/21 16:33 19:36 23:47 WBC RBC Hgb Hct MCV MCHC RDW Lymph % (Auto) [place] % (Auto) Lymph # (Auto) [place] # (Auto) Seg Neutrophils % Seg Neuts % (Manual) Lymphocytes % (Manual) Monocytes % (Manual) Seg Neutrophils # Seg Neutrophils # Man Lymphocytes # (Manual) Monocytes # (Manual) PT APTT 72.5 H* D-Dimer Heparin Anti-Xa Level ABG pH ABG pO2 ABG HCO3 ABG O2 Saturation ABG Base Excess ABG Hemoglobin Oxyhemoglobin Sodium Potassium Chloride Carbon Dioxide BUN Creatinine Glucose POC Glucose 131 H 122 H Calcium Ferritin Total Bilirubin AST ALT Lactate Dehydrogenase Total Creatine Kinase Troponin T C-Reactive Protein Albumin Urine WBC (Auto) Urine Creatinine Urine Total Protein Complement C3 Coronavirus (PCR) Hepatitis C Antibody 05/20/21 05/20/21 05/20/21 05:14 05:14 06:12 WBC 19.7 H RBC 3.19 L Hgb 9.5 L Hct 29.9 L MCV MCHC RDW 17.3 H Lymph % (Auto) [place] % (Auto) Lymph # (Auto) [place] # (Auto) Seg Neutrophils % Seg Neuts % (Manual) Lymphocytes % (Manual) Monocytes % (Manual) Seg Neutrophils # Seg Neutrophils # Man Lymphocytes # (Manual) Monocytes # (Manual) PT APTT D-Dimer Heparin Anti-Xa Level ABG pH ABG pO2 ABG HCO3 ABG O2 Saturation ABG Base Excess ABG Hemoglobin Oxyhemoglobin Sodium Potassium Chloride Carbon Dioxide BUN 31 H Creatinine 2.1 H Glucose 130 H POC Glucose 120 H Calcium Ferritin Total Bilirubin AST ALT Lactate Dehydrogenase Total Creatine Kinase Troponin T C-Reactive Protein Albumin Urine WBC (Auto) Urine Creatinine Urine Total Protein Complement C3 Coronavirus (PCR) Hepatitis C Antibody 05/20/21 05/20/21 05/20/21 11:10 18:12 23:55 WBC RBC Hgb Hct MCV MCHC RDW Lymph % (Auto) [place] % (Auto) Lymph # (Auto) [place] # (Auto) Seg Neutrophils % Seg Neuts % (Manual) Lymphocytes % (Manual) Monocytes % (Manual) Seg Neutrophils # Seg Neutrophils # Man Lymphocytes # (Manual) Monocytes # (Manual) PT APTT D-Dimer Heparin Anti-Xa Level ABG pH ABG pO2 ABG HCO3 ABG O2 Saturation ABG Base Excess ABG Hemoglobin Oxyhemoglobin Sodium Potassium Chloride Carbon Dioxide BUN Creatinine Glucose POC Glucose 152 H 137 H 146 H Calcium Ferritin Total Bilirubin AST ALT Lactate Dehydrogenase Total Creatine Kinase Troponin T C-Reactive Protein Albumin Urine WBC (Auto) Urine Creatinine Urine Total Protein Complement C3 Coronavirus (PCR) Hepatitis C Antibody 05/21/21 05/21/21 05/21/21 03:12 03:12 05:53 WBC 26.2 H RBC 2.58 L Hgb 7.7 L Hct 24.2 L MCV MCHC RDW 17.8 H Lymph % (Auto) [place] % (Auto) Lymph # (Auto) [place] # (Auto) Seg Neutrophils % Seg Neuts % (Manual) Lymphocytes % (Manual) Monocytes % (Manual) Seg Neutrophils # Seg Neutrophils # Man Lymphocytes # (Manual) Monocytes # (Manual) PT APTT D-Dimer Heparin Anti-Xa Level ABG pH ABG pO2 ABG HCO3 ABG O2 Saturation ABG Base Excess ABG Hemoglobin Oxyhemoglobin Sodium 133 L Potassium 5.7 H D Chloride Carbon Dioxide 21 L BUN 49 H Creatinine 2.6 H Glucose 160 H POC Glucose 118 H Calcium Ferritin Total Bilirubin AST ALT Lactate Dehydrogenase Total Creatine Kinase Troponin T C-Reactive Protein Albumin Urine WBC (Auto) Urine Creatinine Urine Total Protein Complement C3 Coronavirus (PCR) Hepatitis C Antibody 05/21/21 05/22/21 05/22/21 18:00 00:13 05:05 WBC RBC Hgb Hct MCV MCHC RDW Lymph % (Auto) [place] % (Auto) Lymph # (Auto) [place] # (Auto) Seg Neutrophils % Seg Neuts % (Manual) Lymphocytes % (Manual) Monocytes % (Manual) Seg Neutrophils # Seg Neutrophils # Man Lymphocytes # (Manual) Monocytes # (Manual) PT APTT D-Dimer Heparin Anti-Xa Level ABG pH 7.500 H ABG pO2 56.6 L ABG HCO3 ABG O2 Saturation ABG Base Excess ABG Hemoglobin 6.7 L Oxyhemoglobin 94.8 L Sodium 136 L Potassium 5.2 H Chloride Carbon Dioxide BUN 59 H Creatinine 2.6 H Glucose 138 H POC Glucose 109 H Calcium Ferritin Total Bilirubin AST ALT Lactate Dehydrogenase Total Creatine Kinase Troponin T C-Reactive Protein Albumin Urine WBC (Auto) Urine Creatinine Urine Total Protein Complement C3 Coronavirus (PCR) Hepatitis C Antibody 05/22/21 05/22/21 06:07 11:49 WBC RBC Hgb Hct MCV MCHC RDW Lymph % (Auto) [place] % (Auto) Lymph # (Auto) [place] # (Auto) Seg Neutrophils % Seg Neuts % (Manual) Lymphocytes % (Manual) Monocytes % (Manual) Seg Neutrophils # Seg Neutrophils # Man Lymphocytes # (Manual) Monocytes # (Manual) PT APTT D-Dimer Heparin Anti-Xa Level ABG pH ABG pO2 ABG HCO3 ABG O2 Saturation ABG Base Excess ABG Hemoglobin Oxyhemoglobin Sodium Potassium Chloride Carbon Dioxide BUN Creatinine Glucose POC Glucose 110 H 117 H Calcium Ferritin Total Bilirubin AST ALT Lactate Dehydrogenase Total Creatine Kinase Troponin T C-Reactive Protein Albumin Urine WBC (Auto) Urine Creatinine Urine Total Protein Complement C3 Coronavirus (PCR) Hepatitis C Antibody Chest x-ray: pending Allied health notes reviewed: nursing
[2021-05-22] MEDS ORDERED: SODIUM POLYSTYRENE 15 GM/60 ML ORAL LIQD PO ONE (14:30)
[2021-05-22] MEDS ORDERED: HYDROmorphone 1 MG/1 ML INJ IV STA (14:38)
[2021-05-22] MEDS ORDERED: QUEtiapine 100 MG TAB PO STA (14:39)
--- NOTE | 2021-05-22 15:46 | Progress Note ---
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 * Acute hypoxic respiratory failure * NSTEMI * COVID 19 infection * Hepatitis C * Hypertension * Anemia * Metabolic acidosis * Methamphetamine abuse * Transaminitis Plan: * Patient with elevated renal function, cr stable today * k noted, stopped promote and placed on nepro * gentle ivfs today with low bp and volume depletion * hold diuresis , Na and low bp noted, hold bp meds prn * Serum sodium stable, continue free water flushes with TFs * Replete K prn * Renal ultrasound reviewed - will need follow up CT once stable * Continue antiHTN medications * Cardiology, ICU input noted * Dose medications for renal function * Avoid potential nephrotoxins * Strict I/O Subjective Principal diagnosis: AHRF; COVID-19 infection; NSTEMI; YE; HFrEF (35-40%); Polysubstance abuse Interval history: events noted Chart, vitals, labs reviewed. Remains confused Objective - Exam Narrative Exam: Direct examination deferred in setting of COVID-19 pandemic. Primary team exam reviewed in detail Objective - Vital Signs Vital signs: Vital Signs - 12hr 05/22/21 05/22/21 05/22/21 04:00 05:00 05:25 Temperature 99.2 F Pulse Rate 81 79 79 Pulse Rate [ 82 From Monitor] Respiratory 36 H 38 H Rate Blood Pressure 103/70 103/70 113/69 O2 Sat by Pulse 93 93 Oximetry 05/22/21 05/22/21 05/22/21 06:00 07:39 09:31 Temperature 99.3 F Pulse Rate 77 89 Pulse Rate [ From Monitor] Respiratory 32 H 31 H Rate Blood Pressure 114/68 151/91 O2 Sat by Pulse 95 99 Oximetry 05/22/21 05/22/21 05/22/21 09:49 12:18 13:57 Temperature 100.5 F H Pulse Rate 89 89 Pulse Rate [ From Monitor] Respiratory 42 H Rate Blood Pressure 141/84 122/80 O2 Sat by Pulse 100 Oximetry 05/22/21 05/22/21 15:12 15:13 Temperature Pulse Rate 89 88 Pulse Rate [ From Monitor] Respiratory Rate Blood Pressure 121/76 121/76 O2 Sat by Pulse Oximetry - Lab 05/21/21 03:12 05/22/21 05:05 Most recent lab results ABG pH 7.500 pH Units (7.350-7.450) H 05/21/21 18:00 ABG pCO2 33.4 mm Hg 05/21/21 18:00 ABG pO2 56.6 mm Hg (80.0-90.0) L 05/21/21 18:00 ABG HCO3 25.4 mmol/L (20.0-26.0) 05/21/21 18:00 ABG O2 Saturation 97.1 % (95.0-99.0) 05/21/21 18:00 Calcium 8.4 mg/dL (8.4-10.2) 05/22/21 05:05 Phosphorus 4.00 mg/dL (2.5-4.5) 05/14/21 15:44 Magnesium 2.00 mg/dL (1.7-2.3) 05/14/21 15:44 Urine Creatinine 100.8 mg/dL (0.1-20.0) H 05/10/21 11:03 Urine Sodium 61 mmol/L 05/05/21 09:57 Urine Total Protein 42 mg/dL (5-11.8) H 05/10/21 11:03 Medications & Allergies - Medications Allergies/Adverse Reactions: Allergies No Known Allergies Allergy (Verified 05/08/21 07:47) Home Medications: Home Medications Medication Instructions Recorded Confirmed Last Taken Type Cefpodoxime Proxetil 200 mg PO Q12H #10 tablet 09/11/20 05/19/21 Unknown Rx Famotidine [Pepcid] 20 mg PO BID #30 tablet 04/13/21 05/19/21 Unknown Rx Losartan [Cozaar] 100 mg PO QDAY #60 tablet 04/13/21 05/19/21 Unknown Rx Metoprolol Xl [Metoprolol 25 mg PO QDAY #30 tablet 04/13/21 05/19/21 Unknown Rx SUCCINATE ER TAB] NIFEdipine XL [Procardia Xl] 60 mg PO Q12HR #60 tablet 04/13/21 05/19/21 Unknown Rx hydrALAZINE [Apresoline TAB] 50 mg PO Q8HR #180 tablet 04/13/21 05/19/21 Unknown Rx Active Medications: Generic Name Dose Route Start Last Admin Trade Name Freq PRN Reason Stop Dose Admin Acetaminophen 650 mg 05/04/21 12:34 05/22/21 00:42 Acetaminophen 325 Mg Tab PO 650 mg Q4H PRN Administration Pain MILD(1-3)/Fever >100.5/MARIA Acetaminophen 650 mg 05/07/21 16:00 05/11/21 16:25 Acetaminophen 650 Mg Rect Supp [place] 650 mg Q4H PRN Administration Pain, Mild (1-3) Apixaban 5 mg 05/20/21 11:00 05/22/21 09:45 Apixaban 5 Mg Tab PO 5 mg Q12HR RISHI Administration Protocol Aspirin 81 mg 05/06/21 14:00 05/22/21 09:45 Aspirin 81 Mg Tab Chew PO 81 mg QDAY RISHI Administration Atorvastatin Calcium 40 mg 05/09/21 22:00 05/21/21 22:23 Atorvastatin 40 Mg Tab FEEDTUBE 40 mg QHS RISHI Administration Chlordiazepoxide HCl 75 mg 05/21/21 21:00 05/22/21 15:12 Chlordiazepoxide 25 Mg Cap PO 75 mg Q8HR RISHI Administration Dextrose 0 ml 05/09/21 10:49 05/14/21 06:55 Dextrose 10% *Hypoglycemia IV 250 ml PRN PRN Administration Hypoglycemia Famotidine 10 mg 05/17/21 10:00 05/22/21 09:45 Famotidine 10 Mg Tab FEEDTUBE 10 mg BID RISHI Administration Haloperidol Lactate 5 mg 05/09/21 18:32 05/18/21 19:52 Haloperidol Lactate 5 Mg/1 Ml Inj IV 5 mg Q6H PRN Administration Agitation Hydralazine HCl 50 mg 05/04/21 14:00 05/22/21 15:12 Hydralazine 25 Mg Tab PO 50 mg Q8HR RISHI Administration Hydrophilic Ointment 1 applic 05/05/21 15:21 Lip Therapy Vaseline TP Q2HR PRN Dry Lips Cefepime HCl 2 gm in 100 mls @ 200 mls/hr 05/18/21 18:00 05/21/21 18:30 Cefepime/Ns 2 Gm/100 Ml IV 05/25/21 18:29 200 mls/hr Q24H RISHI Administration Protocol Sodium Chloride 1,000 mls @ 75 mls/hr 05/21/21 15:15 05/21/21 16:45 Nacl 0.9% 1000 Ml IV 75 mls/hr DIRECT RISHI Administration Insulin Human Lispro 0 unit 05/10/21 09:40 05/12/21 16:49 Insulin Lispro 100 Unit/Ml SUB-Q 2 unit Q6HR PRN Administration Hyperglycemia Protocol Labetalol HCl 10 mg 05/15/21 10:24 Labetalol 20 Mg/4 Ml Inj IV Q4H PRN sbp> 160. Lorazepam 4 mg 05/21/21 18:37 Lorazepam 2 Mg/Ml Vial IV Q15MIN PRN CIWA-Ar >25 Lorazepam 4 mg 05/21/21 18:37 Lorazepam 2 Mg/Ml Vial IV Q1H PRN CIWA-Ar 16-25 Lorazepam 2 mg 05/21/21 18:37 05/22/21 15:10 Lorazepam 2 Mg/Ml Vial IV 2 mg Q1H PRN Administration CIWA-Ar 8-15 Metoprolol Tartrate 50 mg 05/10/21 14:00 05/22/21 15:13 Metoprolol Tartrate 50 Mg Tab FEEDTUBE 50 mg TID RISHI Administration Multi-Ingred Cream/Lotion/Oil/Oint 1 applic 05/05/21 15:21 Mineral Oil/Petrolatum, White Ophth Oint 3.5 Gm OU Q4HR PRN Dry Eye(s) Ondansetron HCl 4 mg 05/04/21 12:34 05/04/21 21:51 Ondansetron 4 Mg/2 Ml Inj IV 4 mg Q8H PRN Administration Nausea And Vomiting Quetiapine Fumarate 250 mg 05/22/21 15:30 05/22/21 15:14 Quetiapine 100 Mg Tab PO Not Given BID RISHI Senna/Docusate Sodium 1 tab 05/05/21 22:00 05/22/21 09:45 Sennosides/Docusate Sodium 8.6/50 Mg Tab FEEDTUBE 1 tab BID RISHI Administration Sodium Chloride 10 ml 05/04/21 22:00 05/22/21 09:49 Sodium Chloride 0.9% 10 Ml Flush Syringe IV 10 ml BID RISHI Administration Sodium Chloride 10 ml 05/04/21 12:34 05/06/21 13:59 Sodium Chloride 0.9% 10 Ml Flush Syringe IV 10 ml PRN PRN Administration LINE FLUSH Sodium Chloride 10 ml 05/09/21 09:46 Sodium Chloride 0.9% 50 Ml Ivpb IV PRN PRN FLUSH
[2021-05-22] MEDS: CEFEPIME/NS 2 GM/100 ML 2 GM/100 ML BAG IV SCH (17:22)
[2021-05-23] MEDS: ACETAMINOPHEN 325 MG TAB PO PRN (04:53)
[2021-05-23 05:15] LABS: Hemoglobin 6.2 gm/dl (11.8-15.2); Mean Corpuscular HGB Conc 32 % (32-34); Mean Corpuscular Volume 96 fl (84-94); Platelet Count 332 K/mm3 (140-440); Red Blood Count 2.03 M/mm3 (3.65-5.03); Red Cell Distribution Width 17.5 % (13.2-15.2)
[2021-05-23 05:23] LABS: Hematocrit 19.4 % (35.5-45.6)
[2021-05-23 05:31] LABS: Calcium 8.5 mg/dL (8.4-10.2)
[2021-05-23] MEDS ORDERED: SODIUM CHLORIDE 0.9% 500 ML 500 ML IV ONE (05:42)
[2021-05-23] MEDS: hydrALAZINE 25 MG TAB PO SCH ×2 (06:10→21:10)
[2021-05-23] MEDS: chlordiazePOXIDE 25 MG CAP PO SCH ×2 (06:10→21:10)
--- NOTE | 2021-05-23 10:04 | Progress Note ---
Assessment and Plan Impression * Nonoliguric acute kidney injury --Renal ultrasound: 1.7cm mass hyperechoic mass upper pole left kidney - ?angiomyolipoma * Acute hypoxic respiratory failure * NSTEMI * COVID 19 infection * Hepatitis C * Hypertension * Anemia * Metabolic acidosis * Methamphetamine abuse * Transaminitis Plan: * Patient serum creatinine is slowly rising. He is also hyponatremic. * Suspect possible volume depletion. Shall check a UA as well as a fractional excretion of sodium * Shall hydrate patient gently. * Hyperkalemia has been corrected. Continue to hold diuretics. * Renal ultrasound reviewed - will need follow up CT once stable * Continue antiHTN medications * Cardiology, ICU input noted * Dose medications for renal function * Avoid potential nephrotoxins * Strict I/O Subjective Date of service: 05/23/21 Principal diagnosis: AHRF; COVID-19 infection; NSTEMI; YE; HFrEF (35-40%); Polysubstance abuse Interval history: Patient is currently on a BiPAP mask with 50% FiO2. Oxygen saturation is 84%. Indwelling Merino catheter in place. Patient also has rectal tube in place. Objective - Vital Signs Vital signs: Vital Signs - 12hr 05/22/21 05/23/21 05/23/21 23:00 00:00 00:07 Temperature 100.8 F H Pulse Rate 84 89 89 Pulse Rate [ 82 From Monitor] Respiratory 33 H 30 H 30 H Rate Blood Pressure 106/65 109/71 109/71 O2 Sat by Pulse 95 94 95 Oximetry 05/23/21 05/23/21 05/23/21 01:00 02:00 03:00 Temperature Pulse Rate 90 88 88 Pulse Rate [ From Monitor] Respiratory 30 H 33 H 42 H Rate Blood Pressure 103/67 118/75 120/82 O2 Sat by Pulse 100 100 98 Oximetry 05/23/21 05/23/21 05/23/21 04:00 04:31 05:00 Temperature 101.0 F H Pulse Rate 85 91 H 90 Pulse Rate [ 82 From Monitor] Respiratory 35 H 36 H 36 H Rate Blood Pressure 122/77 122/77 128/80 O2 Sat by Pulse 100 92 99 Oximetry 05/23/21 05/23/21 06:10 07:20 Temperature 97.8 F Pulse Rate 90 Pulse Rate [ From Monitor] Respiratory Rate Blood Pressure 130/70 O2 Sat by Pulse Oximetry - General Appearance General appearance: well-developed, well-nourished, appears stated age, other (BiPAP mask in place) EENT: PERRL, mucous membranes moist Neck: no JVD, no thyromegaly, no carotid bruit, supple Respiratory: Present: Other (Coarse breath sounds bilaterally) Cardiology: regular, normal heart rate, S1S2, no murmurs Gastrointestinal: normal, normoactive bowel sounds Integumentary: other (No edema) - Lab 05/23/21 04:48 05/23/21 04:48 Most recent lab results ABG pH 7.500 pH Units (7.350-7.450) H 05/21/21 18:00 ABG pCO2 33.4 mm Hg 05/21/21 18:00 ABG pO2 56.6 mm Hg (80.0-90.0) L 05/21/21 18:00 ABG HCO3 25.4 mmol/L (20.0-26.0) 05/21/21 18:00 ABG O2 Saturation 97.1 % (95.0-99.0) 05/21/21 18:00 Calcium 8.5 mg/dL (8.4-10.2) 05/23/21 04:48 Phosphorus 4.00 mg/dL (2.5-4.5) 05/14/21 15:44 Magnesium 2.00 mg/dL (1.7-2.3) 05/14/21 15:44 Urine Creatinine 100.8 mg/dL (0.1-20.0) H 05/10/21 11:03 Urine Sodium 61 mmol/L 05/05/21 09:57 Urine Total Protein 42 mg/dL (5-11.8) H 05/10/21 11:03 Medications & Allergies - Medications Allergies/Adverse Reactions: Allergies No Known Allergies Allergy (Verified 05/08/21 07:47) Home Medications: Home Medications Medication Instructions Recorded Confirmed Last Taken Type Cefpodoxime Proxetil 200 mg PO Q12H #10 tablet 09/11/20 05/19/21 Unknown Rx Famotidine [Pepcid] 20 mg PO BID #30 tablet 04/13/21 05/19/21 Unknown Rx Losartan [Cozaar] 100 mg PO QDAY #60 tablet 04/13/21 05/19/21 Unknown Rx Metoprolol Xl [Metoprolol 25 mg PO QDAY #30 tablet 04/13/21 05/19/21 Unknown Rx SUCCINATE ER TAB] NIFEdipine XL [Procardia Xl] 60 mg PO Q12HR #60 tablet 04/13/21 05/19/21 Unknown Rx hydrALAZINE [Apresoline TAB] 50 mg PO Q8HR #180 tablet 04/13/21 05/19/21 Unknown Rx Active Medications: Generic Name Dose Route Start Last Admin Trade Name Freq PRN Reason Stop Dose Admin Acetaminophen 650 mg 05/04/21 12:34 05/23/21 04:53 Acetaminophen 325 Mg Tab PO 650 mg Q4H PRN Administration Pain MILD(1-3)/Fever >100.5/MARIA Acetaminophen 650 mg 05/07/21 16:00 05/11/21 16:25 Acetaminophen 650 Mg Rect Supp AK 650 mg Q4H PRN Administration Pain, Mild (1-3) Apixaban 5 mg 05/20/21 11:00 05/22/21 22:45 Apixaban 5 Mg Tab PO Not Given Q12HR [facility] Protocol Aspirin 81 mg 05/06/21 14:00 05/22/21 09:45 Aspirin 81 Mg Tab Chew PO 81 mg QDAY RISHI Administration Atorvastatin Calcium 40 mg 05/09/21 22:00 05/22/21 22:55 Atorvastatin 40 Mg Tab FEEDTUBE Not Given QHS RISHI Chlordiazepoxide HCl 75 mg 05/21/21 21:00 05/23/21 06:10 Chlordiazepoxide 25 Mg Cap PO 75 mg Q8HR RISHI Administration Dextrose 0 ml 05/09/21 10:49 05/14/21 06:55 Dextrose 10% *Hypoglycemia IV 250 ml PRN PRN Administration Hypoglycemia Famotidine 10 mg 05/17/21 10:00 05/22/21 22:55 Famotidine 10 Mg Tab FEEDTUBE Not Given BID RISHI Haloperidol Lactate 5 mg 05/09/21 18:32 05/18/21 19:52 Haloperidol Lactate 5 Mg/1 Ml Inj IV 5 mg Q6H PRN Administration Agitation Hydralazine HCl 50 mg 05/04/21 14:00 05/23/21 06:10 Hydralazine 25 Mg Tab PO 50 mg Q8HR RISHI Administration Hydrophilic Ointment 1 applic 05/05/21 15:21 Lip Therapy Vaseline TP Q2HR PRN Dry Lips Cefepime HCl 2 gm in 100 mls @ 200 mls/hr 05/18/21 18:00 05/22/21 17:22 Cefepime/Ns 2 Gm/100 Ml IV 05/25/21 18:29 200 mls/hr Q24H RISHI Administration Protocol Sodium Chloride 1,000 mls @ 75 mls/hr 05/21/21 15:15 05/21/21 16:45 Nacl 0.9% 1000 Ml IV 75 mls/hr DIRECT RISHI Administration Insulin Human Lispro 0 unit 05/10/21 09:40 05/12/21 16:49 Insulin Lispro 100 Unit/Ml SUB-Q 2 unit Q6HR PRN Administration Hyperglycemia Protocol Labetalol HCl 10 mg 05/15/21 10:24 Labetalol 20 Mg/4 Ml Inj IV Q4H PRN sbp> 160. Lorazepam 4 mg 05/21/21 18:37 Lorazepam 2 Mg/Ml Vial IV Q15MIN PRN CIWA-Ar >25 Lorazepam 4 mg 05/21/21 18:37 Lorazepam 2 Mg/Ml Vial IV Q1H PRN CIWA-Ar 16-25 Lorazepam 2 mg 05/21/21 18:37 05/22/21 15:10 Lorazepam 2 Mg/Ml Vial IV 2 mg Q1H PRN Administration CIWA-Ar 8-15 Metoprolol Tartrate 50 mg 05/10/21 14:00 05/22/21 21:54 Metoprolol Tartrate 50 Mg Tab FEEDTUBE Not Given TID RISHI Multi-Ingred Cream/Lotion/Oil/Oint 1 applic 05/05/21 15:21 Mineral Oil/Petrolatum, White Ophth Oint 3.5 Gm OU Q4HR PRN Dry Eye(s) Ondansetron HCl 4 mg 05/04/21 12:34 05/04/21 21:51 Ondansetron 4 Mg/2 Ml Inj IV 4 mg Q8H PRN Administration Nausea And Vomiting Quetiapine Fumarate 250 mg 05/22/21 15:30 05/22/21 22:55 Quetiapine 100 Mg Tab PO Not Given BID RISHI Senna/Docusate Sodium 1 tab 05/05/21 22:00 05/22/21 22:55 Sennosides/Docusate Sodium 8.6/50 Mg Tab FEEDTUBE Not Given BID RISHI Sodium Chloride 10 ml 05/04/21 22:00 05/22/21 22:56 Sodium Chloride 0.9% 10 Ml Flush Syringe IV 10 ml BID RISHI Administration Sodium Chloride 10 ml 05/04/21 12:34 05/06/21 13:59 Sodium Chloride 0.9% 10 Ml Flush Syringe IV 10 ml PRN PRN Administration LINE FLUSH Sodium Chloride 10 ml 05/09/21 09:46 Sodium Chloride 0.9% 50 Ml Ivpb IV PRN PRN FLUSH
[2021-05-23] MEDS: QUEtiapine 100 MG TAB PO SCH ×2 (11:41→21:11)
[2021-05-23] MEDS: ASPIRIN 81 MG TAB CHEW PO SCH (11:41)
[2021-05-23] MEDS: METOPROLOL TARTRATE 50 MG TAB FEEDTUBE SCH ×2 (11:41→19:37)
[2021-05-23] MEDS: SENNOSIDES/DOCUSATE SODIUM 8.6/50 MG TAB FEEDTUBE SCH ×2 (11:42→21:11)
[2021-05-23] MEDS: FAMOTIDINE 10 MG TAB FEEDTUBE SCH (11:42)
[2021-05-23] MEDS: APIXABAN 5 MG TAB PO SCH (11:42)
--- NOTE | 2021-05-23 11:57 | Progress Note ---
Assessment and Plan Patient is a 56-year-old male with a past medical history of hypertension, paroxysmal SVT, medical noncompliance, smoking, substance abuse who presented to the ED with a complaint of shortness of breath and dyspnea on exertion x1 month however with significantly worsening symptoms since yesterday. NSTEMI Hypertensive Emergency COVID-19 Acute Bilateral DVT Afib YE Hepatitis C SOB Medical noncompliance Polysubstance abuse-patient tested positive for methamphetamines Anemia Echo 05/04/2021-EF 35 to 40%. Moderate concentric LVH. Moderate global hypokinesis of left ventricle. Mild mitral regurgitation. Mild pulmonary hypertension. Echocardiogram reviewed (08/27/2020): LVEF is 50 to 55%. Mild to moderate concentric LVF. Severe diastolic dysfunction is present (restrictive filling). Right ventricle is mildly hypokinetic. RVSP is 48 mmHg. No valvular ab normalities. Plan: Continue asa and statin Continue metoprolol 50 mg p.o. 3 times daily, hydralizine No BETHEL/ARB due to elevated creatinine Recommend holding Eliquis due to anemia with Hgb<7 Recommend transfusing PRBC if Hgb<7 Patient seen in conjunction with Dr. Rizvi who agrees with this plan of care - Patient Problems (1) ARF (acute renal failure) Current Visit: Yes Status: Acute (2) Elevated d-dimer Current Visit: Yes Status: Acute (3) LFT elevation Current Visit: Yes Status: Acute (4) NSTEMI (non-ST elevated myocardial infarction) Current Visit: Yes Status: Acute (5) Polysubstance abuse Current Visit: Yes Status: Acute (6) SOB (shortness of breath) Current Visit: Yes Status: Acute (7) Hypertension Current Visit: Yes Status: Chronic (8) Noncompliance with medication regimen Current Visit: Yes Status: Chronic Subjective Date of service: 05/23/21 Principal diagnosis: AHRF; COVID-19 infection; NSTEMI; YE; HFrEF (35-40%); Polysubstance abuse Interval history: Patient resting in bed is currently on bipap Patient sinus rhythm 80s-90s on monitor Objective Vital Signs Temp Pulse Pulse Resp BP Pulse Ox 05/23/21 11:41 100 H 130/84 05/23/21 11:33 98.8 F 05/23/21 10:00 92 05/23/21 08:45 98 H 36 H 130/70 91 02/07/22 07:20 97.8 F 05/23/21 06:10 90 130/70 05/23/21 05:00 90 36 H 128/80 99 05/23/21 04:31 91 H 36 H 122/77 92 05/23/21 04:00 101.0 F H 85 82 35 H 122/77 100 05/23/21 03:00 88 42 H 120/82 98 05/23/21 02:00 88 33 H 118/75 100 05/23/21 01:00 90 30 H 103/67 100 05/23/21 00:07 89 30 H 109/71 95 05/23/21 00:00 100.8 F H 89 82 30 H 109/71 94 05/22/21 23:00 84 33 H 106/65 95 05/22/21 22:00 85 36 H 104/69 98 05/22/21 21:00 85 42 H 107/71 98 05/22/21 20:53 92 05/22/21 20:43 84 32 H 114/76 92 05/22/21 20:00 96.6 F L 87 82 39 H 114/76 100 05/22/21 19:00 90 25 H 123/79 05/22/21 18:18 86 22 128/79 97 05/22/21 18:00 86 23 128/79 98 05/22/21 17:00 83 30 H 121/69 05/22/21 16:54 100.1 F H 05/22/21 16:00 85 82 24 111/69 100 05/22/21 15:13 88 121/76 05/22/21 15:12 89 121/76 05/22/21 15:00 88 41 H 121/76 05/22/21 14:00 90 44 H 122/79 05/22/21 13:57 89 42 H 122/80 100 05/22/21 13:00 90 44 H 122/80 87 05/22/21 12:18 100.5 F H 05/22/21 12:00 87 76 23 136/88 98 - Physical Examination General: Other (sedated) HEENT: Positive: PERRL Neck: Positive: trachea midline Cardiac: Positive: Reg Rate and Rhythm Lungs: Positive: Rales Neuro: Positive: Other (sedated) Abdomen: Positive: Soft Skin: Negative: Rash, Suspicious Lesions, Ulceration Extremities: Absent: edema - Labs and Meds CBC 05/23/21 Range/Units 04:48 WBC 21.1 H (4.5-11.0) K/mm3 RBC 2.03 L (3.65-5.03) M/mm3 Hgb 6.2 L (11.8-15.2) gm/dl Hct 19.4 L* (35.5-45.6) % Plt Count 332 (140-440) K/mm3 Comprehensive Metabolic Panel 05/23/21 Range/Units 04:48 Sodium 143 D (137-145) mmol/L Potassium 4.4 (3.6-5.0) mmol/L Chloride 104.6 (98-107) mmol/L Carbon Dioxide 24 (22-30) mmol/L BUN 62 H (9-20) mg/dL Creatinine 2.8 H (0.8-1.3) mg/dL Glucose 110 H (75-100) mg/dL Calcium 8.5 (8.4-10.2) mg/dL - Imaging and Cardiology EKG: report reviewed, image reviewed Echo: report reviewed - Telemetry EKG Rhythm: Sinus Rhythm - EKG Sinus rhythms and dysrhythmias: sinus rhythm Ventricular dysrhythmias: ventricular premature com Chamber hypertrophy or enlargement: left ventricular hypertro - Allied health notes Allied health notes reviewed: nursing
--- NOTE | 2021-05-23 13:09 | Progress Note ---
Assessment and Plan Cultures: Blood culture 05/07/2021 no growth so far Blood culture 05/10/2021 no growth so far Sputum culture 05/16/2021 Enterobacter A/P: 56 yo M PMHx smoking, a fin, HTN, medication non-compliance admitted with #Severe COVID-19 pneumonia: Patient presented with a week of symptoms, chest x- ray with diffuse bilateral infiltrates, admission O2 sats decreased on room air. Inflammatory markers elevated. Was not a candidate for Remdesivir. Completed steroids. #Acute hypoxemic respiratory failure: secondary to COVID-19 infection. On BiPAP #VAP: Cultures with Enterobacter. #YE: Renally dose medications. #Acute anemia Recommendations: -Completed steroids -Due to persistent fever, will switch cefepime to IV ertapenem renally adjusted -anemia work up per primary -Poor prognosis -Discontinue COVID-19 isolation tomorrow Rhonda Mooney MD, FACP, [facility] ([facility] O: [phone] F: [phone] Subjective Date of service: 05/23/21 Principal diagnosis: AHRF; COVID-19 infection; NSTEMI; YE; HFrEF (35-40%); Polysubstance abuse Interval history: Persistently febrile. On BiPAP. Drowsy Objective - Exam Narrative Exam: Physical Exam: Constitutional: Drowsy, on BiPAP Head, Ears, Nose: Normocephalic, atraumatic. External ears, nose normal Eyes: Conjunctivae/corneas clear. No icterus. No ptosis. Neck: BiPAP Oral: BiPAP Cardiovascular: S1, S2 + Respiratory: Bilateral rhonchi GI: Soft, non-tender; bowel sounds normal. No peritoneal signs Musculoskeletal: No pedal edema, no cyanosis. Skin: No rash or abscess Hem/Lymphatic: No palpable cervical or supraclavicular nodes. No lymphangitis Psych: No agitation Neurological: Drowsy - Constitutional Vitals: Vital Signs Temp Pulse Resp BP Pulse Ox 98.8 F 89 35 H 111/74 100 05/23/21 11:33 05/23/21 12:51 05/23/21 12:51 05/23/21 12:51 05/23/21 12:51 Temperature -Last 24 Hours Temperature 98.8 F Temperature 97.8 F Temperature 101.0 F Temperature 100.8 F Temperature 96.6 F Temperature 100.1 F - Labs CBC & Chem 7: 05/23/21 04:48 05/23/21 04:48 Labs: Abnormal lab results 05/22/21 05/23/21 05/23/21 Range/Units 16:33 04:48 04:48 WBC 21.1 H (4.5-11.0) K/mm3 RBC 2.03 L (3.65-5.03) M/mm3 Hgb 6.2 L (11.8-15.2) gm/dl Hct 19.4 L* (35.5-45.6) % MCV 96 H (84-94) fl RDW 17.5 H (13.2-15.2) % BUN 62 H (9-20) mg/dL Creatinine 2.8 H (0.8-1.3) mg/dL Glucose 110 H (75-100) mg/dL POC Glucose 119 H (70-105) mg/dL Crossmatch 05/23/21 05/23/21 Range/Units 07:12 11:19 WBC (4.5-11.0) K/mm3 RBC (3.65-5.03) M/mm3 Hgb (11.8-15.2) gm/dl Hct (35.5-45.6) % MCV (84-94) fl RDW (13.2-15.2) % BUN (9-20) mg/dL Creatinine (0.8-1.3) mg/dL Glucose (75-100) mg/dL POC Glucose 127 H (70-105) mg/dL Crossmatch See Detail
--- NOTE | 2021-05-23 13:47 | Progress Note ---
Assessment and Plan Assessment and plan: This is a 56-year-old male with a nicotine abuse, A. fib, hypertension, and chronic medication noncompliance and homelessness who presented to emergency department on 05/04 with complaints of dyspnea on exertion for the past month worsening over the past 3 days, intermittent left-sided chest tightness with activity, and persistent cough without fever. Work-up in the emergency department revealed anemia, hyponatremia, elevated BUN/creatinine and transaminitis. Patient was admitted to the hospitalist service with acute kidney injury and accelerated hypertension. Hospital course to date 05/04/2021. Cardiology was considering patient for [employer]. However, patient with elevated creatinine therefore will hold off on cath evaluation. Nephrology consultation for acute kidney injury. Etiology likely secondary to vasomotor nephropathy/dehydration. We will start IV fluid hydration. Check renal ultrasound to rule out obstructive uropathy. We will resume home medications for the accelerated hypertension 05/05/2021. Echocardiogram reveals EF 35-40% with moderate concentric left ventricular hypertrophy. Moderate global hypokinesis of left ventricle. Mild mitral regurgitation. Mild pulmonary hypertension. Troponins are believed to be elevated in the setting of acute kidney injury. No beta-blockers due to cocaine use continue heparin and nitro drip. Continue CIWA protocol. Await urine studies 05/06/2021. Patient decompensated yesterday with worsening respiratory failure and difficulty to protect airway. Patient was breathing sonorously, and hypoxic. Patient was intubated and currently is on mechanical ventilation. Patient with AC mode ventilation rate of 20, tidal volume 450, FiO2 40% and PEEP of 6. COVID PCR testing on 05/05/2021 was found to be positive. Echocardiogram completed on this admission shows worsening EF from August 2020. Echocardiogram now reveals moderate concentric left ventricular hypertrophy with moderate global hypokinesis and EF of 35-40%. Mild pulmonary hypertension. 05/08: Continue current management, renal stable, LFTs stable and if improved will start on statin therapy. 05/09: Patient is febrile, will panculture, PSV today. CRP pending. Mucoid discharge noted from meatus which was sent for culture. Hypernatremia persists, free water flushes increased 05/10: PSV trial per CCM, T-max 102.3, given mildly elevated procalcitonin started on ceftriaxone 2 g every 24 for 2 days per ID. Overnight patient had atrial fibrillation which was treated with Cardizem drip and converted to sinus rhythm. Metoprolol p.o. increased to 3 times daily. 05/11: Patient still running fevers and if still febrile tomorrow will escalate to cefepime per ID as he is currently on ceftriaxone, CCM attempted PSV but patient became agitated and was switched back to pressure control. Lower extremity ultrasound shows acute DVT and started on heparin drip. Started on scheduled Librium. Patient remains with hypernatremia and elevated creatinine and on IV fluids. Free water flushes adjusted. Started on vancomycin today 05/12: Patient placed on pressure support trial without fentanyl, hypernatremia improving, hyperkalemia noted. Slight improvement to renal function. 05/13: Patient was extubated today, ID change antibiotics to Zosyn for Enterococcus, was started tapering Librium in the morning, renal function slightly improved. Possible transfer to floor tomorrow. ST evaluation for swallow ordered. 05/14: Patient became hypoglycemic overnight and started on dextrose IV fluids. Accu-Chek fingersticks have been low but on a.m. BMP patient blood glucose is 100. Other BMP pending. Feeding tube replaced due to need for enteral access and patient being severely confused. Renal functions remains the same. Upon confirmation will restart tube feedings, p.o. medications and free water flushes. 05/15: Remains confused/somnolent on my encounter. [facility] Remains hypertensive. Added amlodipine 10 mg NG and labetalol prn. ST eval today but doubt he will participate. Potassium replaced. Renal function improving overall, however, hypernatremic. Inc TF FWF to 250 cc q4hr. 05/16: Respiratory distress this AM, hypoxic in 60's not protecting airway. Required intubation, patient now ICU patient. Reduce fluid to FWF only, IVF d/c off jun. CXR ordered demonstrates pulmonary edema. Lasix 40 mg IV bid ordered. Troponin elevated, continue heparin gtt. Would recommend decreasing sedating me dications at this point, agree with librium taper. 05/17: Patient remains on the vent and sedated, RASS -3. Plan for possible sedation vacation today. D/w CCM plan to wean for possible extubation on the vent. 05/18: Tolerated 4hrs of sedation vacation yesterday, on low dose fentanyl this am. Patient is tolerating PST this am. Plan to wean off sedation and wean vent setting for possible extubation today. 05/19: s/p extubation now stable on 3L NC. Lethargic this am, will decreased Seroquel. Speech consult for swallow eval, continue enteral nutrition via NGT for now. Hypertensive throughout the night, Norvac added. Remains on heparin gtt for DVT, might need to transition to PO AC, will d/w CCM. Patient is stable for transfer to [facility] 05/20: Continue sepsis work up considering fever, aspiration precautions. Discussed with nursing staff will hold am seroquel. Continue tube feed. RENAL Function remains relatively stable, possible has peaked. 05/21: Patient seen and examined, resting but still with mild increase wob, CXR concerning with right lobar infiltrate, continue antibiotics, will give kayxalate in addition due to hyperkalemia, Will discuss with ID due to rising luekocytosis possible worsening sepsis. 05/22: Patient remains on BIPAP, still sedated appearing, cxr concerning for possible aspiration, unfortunately still worsening renal status. Will continue abx and continue collaboration with pulmonary team to ensure no over sedation. Continue abx, will add kayaxlate 05/23: Patient noted to have severe anemia today, will initiate GI work up and also Hemolysis work up. Will discuss with Vascular about possible IVC filter placement. Continue BIPAP, goal is to see if we can avert re-intubation. Transfuse 1 UNIT PRBC Will discuss with Pulmonary about holding Eliquis for now Renal failure still ongoing. Assessment and Plan Acute hypoxic respiratory failure -Persistent and now on BIPAP -[facility] consulted, appreciate recommendations -Intubated on 05/05 with 7.50 ETT at 20 over the lips in the ED and extubated 05/13 -Reintubated on 05/16; Exttubated on 05/18 -[facility] consulted, appreciate recommendations -Aspiration precaution HOB above 30 -Continue O2 supplementation and wean as tolerated -Continue SPO2 monitoring for SPO2 goal above 92% Severe COVID-19 pneumonia/leukocytosis, Enterococcus in urine -Infectious disease consulted, appreciate recommendations -COVID-19 PCR positive -Continue droplet/precautions -Not a candidate for remdesivir given acute kidney injury -Dexamethasone for 10 days -Anticoagulation per hospital protocol -Trend COVID-19 from 2 markers (ferritin, D-dimer, CRP, LDH) -Continue IV Abx per ID Acute DVT -Bilateral lower extremity Doppler ultrasound shows acute DVT -On Heparin drip per protocol -Monitor for s/s of active bleeding -Trend CBC and Coags -Will D/W CCM for possible bridge to PO AC agent Acute kidney injury likely secondary to vasomotor nephropathy -Nephrology consulted, appreciate recommendations -Avoid nephrotoxic medications -Renally dose medication -Strict intake and output -FeNa indicates prerenal -Renal ultrasound completed: 1.7 hyper echoic mass within the left upper pole, Monitor for now follow-up with CT once stable Metabolic encephalopathy -Lethargic this am, has been off sedation for over 24hrs -Seroquel decreased -Continue Librium to prevent DTs -Maintain sleep-wake cycle -Monitor QTC -Avoid delirium -May need psych consult Hypertension; S/p hypertensive emergency -Cardiology on consult -Continue current antihypertensives therapy -Norvasc added for better control -Blood pressure monitoring per protocol -PRN Labetalol for SBP greater than 160 Heart failure reduced EF, cardiomyopathy, NSTEMI, paroxysmal atrial fibrillation -Continue beta-sylvia and aspirin -Resume statin therapy -Cardiology consulted, appreciate recommendations -Echo 05/04/2021-EF 35 to 40%. Moderate concentric LVH. Moderate global hypokinesis of left ventricle. Mild mitral regurgitation. Mild pulmonary hypertension. Echocardiogram reviewed (08/27/2020): LVEF is 50 to 55%. Mild to moderate concentric LVF. Severe diastolic dysfunction is present (restrictive filling). Right ventricle is mildly hypokinetic. RVSP is 48 mmHg. No valvular abnormalities. -S/p heparin drip for 24 hours -Patient had atrial fibrillation overnight on 05/10 and was treated with a Cardizem drip Polysubstance abuse, tobacco abuse -UDS positive for amphetamines -We will need cessation counseling when appropriate Transaminitis, h/o hepatitis C -Renal ultrasound showed incidental finding of cholelithiasis -Trend LFTs -Continue supportive management -Acute blood loss Anemia -Trend CBC -Transfuse for hemoglobin less than 7 DVT/ GI prophylaxis -PPI History Interval history: Patient seen and examined, still lethargic, remians ON BIPAP Hospitalist Physical - Physical exam Narrative exam: General appearance: Present: Mild respiratory distress on BIPAP - Neck Neck: Present: supple - Respiratory Respiratory: bilateral: rhonchi, wheezing (Scattered) - Cardiovascular Heart rate: 86 Rhythm: irregularly irregular - Extremities Extremities: no ischemia, pulses intact - Abdominal General gastrointestinal: soft, non-tender, normal bowel sounds - Integumentary Integumentary: Present: clear, warm, dry - Psychiatric Psychiatric: unable to examine - Neurologic Neurologic: other moves all extremity - Allied Health Allied health notes reviewed: nursing, case management - Constitutional Vitals: Temp Pulse Resp BP Pulse Ox 98.8 F 89 35 H 111/74 100 05/23/21 11:33 05/23/21 12:51 05/23/21 12:51 05/23/21 12:51 05/23/21 12:51 General appearance: Present: no acute distress HEART Score - HEART Score EKG: Non-specific Age: 45-65 Risk factors: 1-2 risk factors Troponin: Troponin T 0.400 ng/mL (0.00-0.029) H* D 05/16/21 18:40 Troponin: 1-3x normal limit - Critical Actions Critical Actions: 4-6 pts:12-16.6% risk of adverse cardiac event. Should be admitted Results - Labs CBC & Chem 7: 05/23/21 04:48 05/23/21 04:48 Labs: Laboratory Last Values WBC 21.1 K/mm3 (4.5-11.0) H 05/23/21 04:48 RBC 2.03 M/mm3 (3.65-5.03) L 05/23/21 04:48 Hgb 6.2 gm/dl (11.8-15.2) L 05/23/21 04:48 Hct 19.4 % (35.5-45.6) L* 05/23/21 04:48 MCV 96 fl (84-94) H 05/23/21 04:48 MCH 31 pg (28-32) 05/23/21 04:48 MCHC 32 % (32-34) 05/23/21 04:48 RDW 17.5 % (13.2-15.2) H 05/23/21 04:48 Plt Count 332 K/mm3 (140-440) 05/23/21 04:48 Lymph % (Auto) Vinyl Dipper 05/16/21 10:21 [place] % (Auto) Vinyl Dipper 05/16/21 10:21 Eos % (Auto) Vinyl Dipper 05/16/21 10:21 Baso % (Auto) Vinyl Dipper 05/16/21 10:21 Lymph # (Auto) Vinyl Dipper 05/16/21 10:21 [place] # (Auto) Vinyl Dipper 05/16/21 10:21 Eos # (Auto) Vinyl Dipper 05/16/21 10:21 Baso # (Auto) Vinyl Dipper 05/16/21 10:21 Add Manual Diff Complete 05/16/21 10:21 Total Counted 100 05/16/21 10:21 Seg Neutrophils % Vinyl Dipper 05/16/21 10:21 Seg Neuts % (Manual) 83.0 % (40.0-70.0) H 05/16/21 10:21 Band Neutrophils % 2.0 % 05/16/21 10:21 Lymphocytes % (Manual) 4.0 % (13.4-35.0) L 05/16/21 10:21 Reactive Lymphs % (Man) 0 % 05/16/21 10:21 Monocytes % (Manual) 9.0 % (0.0-7.3) H 05/16/21 10:21 Eosinophils % (Manual) 0 % (0.0-4.3) 05/16/21 10:21 Basophils % (Manual) 0 % (0.0-1.8) 05/16/21 10:21 Metamyelocytes % 0 % 05/16/21 10:21 Myelocytes % 2.0 % 05/16/21 10:21 Promyelocytes % 0 % 05/16/21 10:21 Blast Cells % 0 % 05/16/21 10:21 Nucleated RBC % Not Reportable 05/16/21 10:21 Seg Neutrophils # Vinyl Dipper 05/16/21 10:21 Seg Neutrophils # Man 22.9 K/mm3 (1.8-7.7) H 05/16/21 10:21 Band Neutrophils # 0.6 K/mm3 05/16/21 10:21 Lymphocytes # (Manual) 1.1 K/mm3 (1.2-5.4) L 05/16/21 10:21 Abs React Lymphs (Man) 0.0 K/mm3 05/16/21 10:21 Monocytes # (Manual) 2.5 K/mm3 (0.0-0.8) H 05/16/21 10:21 Eosinophils # (Manual) 0.0 K/mm3 (0.0-0.4) 05/16/21 10:21 Basophils # (Manual) 0.0 K/mm3 (0.0-0.1) 05/16/21 10:21 Metamyelocytes # 0.0 K/mm3 05/16/21 10:21 Myelocytes # 0.6 K/mm3 05/16/21 10:21 Promyelocytes # 0.0 K/mm3 05/16/21 10:21 Blast Cells # 0.0 K/mm3 05/16/21 10:21 WBC Morphology Not Reportable 05/16/21 10:21 Hypersegmented Neuts Not Reportable 05/16/21 10:21 Hyposegmented Neuts Not Reportable 05/16/21 10:21 Hypogranular Neuts Not Reportable 05/16/21 10:21 Smudge Cells Not Reportable 05/16/21 10:21 Toxic Granulation Not Reportable 05/16/21 10:21 Toxic Vacuolation Not Reportable 05/16/21 10:21 Dohle Bodies Not Reportable 05/16/21 10:21 Pelger-Huet Anomaly Not Reportable 05/16/21 10:21 Jesse Rods Not Reportable 05/16/21 10:21 Platelet Estimate Consistent w auto 05/16/21 10:21 Clumped Platelets Few 05/16/21 10:21 Plt Clumps, EDTA Not Reportable 05/16/21 10:21 Large Platelets Not Reportable 05/16/21 10:21 Giant Platelets Not Reportable 05/16/21 10:21 Platelet Satelliting Not Reportable 05/16/21 10:21 Plt Morphology Comment Not Reportable 05/16/21 10:21 RBC Morphology Not Reportable 05/16/21 10:21 Dimorphic RBCs Not Reportable 05/16/21 10:21 Polychromasia Not Reportable 05/16/21 10:21 Hypochromasia Not Reportable 05/16/21 10:21 Poikilocytosis Not Reportable 05/16/21 10:21 Anisocytosis 1+ 05/16/21 10:21 Microcytosis Not Reportable 05/16/21 10:21 Macrocytosis Few 05/16/21 10:21 Spherocytes Not Reportable 05/16/21 10:21 Pappenheimer Bodies Not Reportable 05/16/21 10:21 Sickle Cells Not Reportable 05/16/21 10:21 Target Cells Not Reportable 05/16/21 10:21 Tear Drop Cells Not Reportable 05/16/21 10:21 Ovalocytes Not Reportable 05/16/21 10:21 Helmet Cells Not Reportable 05/16/21 10:21 [place] Bodies Not Reportable 05/16/21 10:21 [place] Rings Not Reportable 05/16/21 10:21 Alec Cells Not Reportable 05/16/21 10:21 Bite Cells Not Reportable 05/16/21 10:21 Crenated Cell Not Reportable 05/16/21 10:21 Elliptocytes Not Reportable 05/16/21 10:21 Acanthocytes (Spur) Not Reportable 05/16/21 10:21 Rouleaux Not Reportable 05/16/21 10:21 Hemoglobin C Crystals Not Reportable 05/16/21 10:21 Schistocytes Not Reportable 05/16/21 10:21 Malaria parasites Not Reportable 05/16/21 10:21 Tomi Bodies Not Reportable 05/16/21 10:21 Hem Pathologist Commnt No 05/16/21 10:21 PT 13.6 Sec. (12.2-14.9) 05/19/21 19:36 INR 0.94 (0.87-1.13) 05/19/21 19:36 APTT 72.5 Sec. (24.2-36.6) H* 05/19/21 19:36 D-Dimer 2730.61 ng/mlDDU (0-234) H 05/12/21 07:19 Heparin Anti-Xa Level 0.47 U.I./ml (0.3-0.7) 05/19/21 05:23 ABG pH 7.500 pH Units (7.350-7.450) H 05/21/21 18:00 ABG pCO2 33.4 mm Hg 05/21/21 18:00 ABG pO2 56.6 mm Hg (80.0-90.0) L 05/21/21 18:00 ABG HCO3 25.4 mmol/L (20.0-26.0) 05/21/21 18:00 ABG O2 Saturation 97.1 % (95.0-99.0) 05/21/21 18:00 ABG O2 Content 9.0 (0.0-44) 05/21/21 18:00 ABG Base Excess 2.1 mmol/L (-2.0-3.0) 05/21/21 18:00 ABG Hemoglobin 6.7 gm/dl (14.0-18.0) L 05/21/21 18:00 ABG Carboxyhemoglobin 2.1 % (0.0-5.0) 05/21/21 18:00 ABG Methemoglobin 0.3 % (0.0-1.5) 05/21/21 18:00 Oxyhemoglobin 94.8 % (95.0-99.0) L 05/21/21 18:00 FiO2 40 % 05/21/21 18:00 Sodium 143 mmol/L (137-145) D 05/23/21 04:48 Potassium 4.4 mmol/L (3.6-5.0) 05/23/21 04:48 Chloride 104.6 mmol/L (98-107) 05/23/21 04:48 Carbon Dioxide 24 mmol/L (22-30) 05/23/21 04:48 Anion Gap 19 mmol/L 05/23/21 04:48 BUN 62 mg/dL (9-20) H 05/23/21 04:48 Creatinine 2.8 mg/dL (0.8-1.3) H 05/23/21 04:48 Estimated GFR 23 ml/min 05/23/21 04:48 BUN/Creatinine Ratio 22 % 05/23/21 04:48 Glucose 110 mg/dL (75-100) H 05/23/21 04:48 POC Glucose 127 mg/dL (70-105) H 05/23/21 11:19 Lactic Acid 0.90 mmol/L (0.7-2.0) 05/20/21 09:17 Calcium 8.5 mg/dL (8.4-10.2) 05/23/21 04:48 Phosphorus 4.00 mg/dL (2.5-4.5) 05/14/21 15:44 Magnesium 2.00 mg/dL (1.7-2.3) 05/14/21 15:44 Ferritin 640.2 ng/mL (30.0-300.0) H 05/12/21 07:19 Total Bilirubin 0.60 mg/dL (0.1-1.2) 05/16/21 10:21 AST 34 units/L (5-40) 05/16/21 10:21 ALT 51 units/L (7-56) 05/16/21 10:21 Alkaline Phosphatase 74 units/L (35-129) 05/16/21 10:21 Lactate Dehydrogenase 314 units/L (91-180) H 05/12/21 07:19 Total Creatine Kinase 406 units/L (55-170) H 05/04/21 08:42 Troponin T 0.400 ng/mL (0.00-0.029) H* D 05/16/21 18:40 C-Reactive Protein 1.60 mg/dL (0.00-1.30) H 05/12/21 07:19 Total Protein 7.4 g/dL (6.3-8.2) 05/16/21 10:21 Albumin 3.1 g/dL (3.9-5) L 05/16/21 10:21 Albumin/Globulin Ratio 0.7 % 05/16/21 10:21 Triglycerides 144 mg/dL (2-149) 05/10/21 04:57 Cholesterol 140 mg/dL (50-199) 05/04/21 07:25 LDL Cholesterol Direct 89 mg/dL (50-130) 05/04/21 07:25 HDL Cholesterol 48 mg/dL (40-59) 05/04/21 07:25 Cholesterol/HDL Ratio 2.91 % 05/04/21 07:25 Procalcitonin 0.63 ng/mL (<0.15) 05/09/21 15:53 Urine Color Yellow (Yellow) 05/09/21 13:22 Urine Turbidity Turbid (Clear) 05/09/21 13:22 Urine pH 5.0 (5.0-7.0) 05/09/21 13:22 Ur Specific [place] 1.018 (1.003-1.030) 05/09/21 13:22 Urine Protein 100 mg/dl mg/dL (Negative) 05/09/21 13:22 Urine Glucose (UA) Neg mg/dL (Negative) 05/09/21 13:22 Urine Ketones Tr mg/dL (Negative) 05/09/21 13:22 Urine Blood Mod (Negative) 05/09/21 13:22 Urine Nitrite Neg (Negative) 05/09/21 13:22 Urine Bilirubin Neg (Negative) 05/09/21 13:22 Urine Urobilinogen < 2.0 mg/dL (<2.0) 05/09/21 13:22 Ur Leukocyte Esterase Mod (Negative) 05/09/21 13:22 Urine WBC (Auto) 25.0 /HPF (0.0-6.0) H 05/09/21 13:22 Urine RBC (Auto) 8.0 /HPF (0.0-6.0) 05/09/21 13:22 U Epithel Cells (Auto) < 1.0 /HPF (0-13.0) 05/09/21 13:22 Urine Bacteria (Auto) 1+ /HPF (Negative) 05/09/21 00:40 Uric Acid Crystals Few 05/09/21 00:40 Triple Phos Crystals 2+ 05/09/21 13:22 Amorphous Crystals Few 05/09/21 00:40 Urine Mucus Few /HPF 05/09/21 00:40 Urine Creatinine 100.8 mg/dL (0.1-20.0) H 05/10/21 11:03 Protein/Creatinin Ratio 0.42 05/10/21 11:03 Urine Sodium 61 mmol/L 05/05/21 09:57 Urine Total Protein 42 mg/dL (5-11.8) H 05/10/21 11:03 Urine Opiates Screen Negative 05/04/21 Unknown Urine Methadone Screen Negative 05/04/21 Unknown Ur Barbiturates Screen Negative 05/04/21 Unknown Ur Phencyclidine Scrn Negative 05/04/21 Unknown Ur Amphetamines Screen Positive 05/04/21 Unknown U Benzodiazepines Scrn Negative 05/04/21 Unknown Urine Cocaine Screen Negative 05/04/21 Unknown U Marijuana (THC) Screen Negative 05/04/21 Unknown Drugs of Abuse Note Disclamer 05/04/21 Unknown Immunofix Electrophor see below 05/05/21 03:40 AUDRA Screen Negative (Negative) 05/05/21 03:40 Proteinase 3 (PR3) Ab <1.0 AI (<1.0) 05/05/21 03:40 Myeloperoxidase Ab <1.0 AI (<1.0) 05/05/21 03:40 Complement C3 72 mg/dL (82-185) L 05/05/21 03:40 Complement C4 17 mg/dL (15-53) 05/05/21 03:40 Coronavirus (PCR) Positive (Negative) A 05/05/21 08:30 Hepatitis A IgM Ab Non-reactive (NonReactive) 05/05/21 03:40 Hep Bs Antigen Non-reactive (Negative) 05/05/21 03:40 Hep B Core IgM Ab Non-reactive (NonReactive) 05/05/21 03:40 Hepatitis C Antibody Reactive (NonReactive) A 05/05/21 03:40 Blood Type O POSITIVE 05/23/21 07:12 Antibody Screen Negative 05/23/21 07:12 Crossmatch See Detail 05/23/21 07:12 Microbiology: Microbiology 05/21/21 03:12 Peripheral/Venous Blood Culture - Preliminary NO GROWTH AFTER 48 HOURS 05/21/21 02:22 Peripheral/Venous Blood Culture - Preliminary NO GROWTH AFTER 48 HOURS 05/21/21 Unknown Urine,Catheterized - Straight Catheter Urine Culture - Final NO GROWTH AFTER 48 HOURS Merino/IV: Voiding Method Condom Catheter Active Medications - Current Medications Current Medications: Generic Name Dose Route Start Last Admin Trade Name Freq PRN Reason Stop Dose Admin Acetaminophen 650 mg 05/04/21 12:34 05/23/21 04:53 Acetaminophen 325 Mg Tab PO 650 mg Q4H PRN Administration Pain MILD(1-3)/Fever >100.5/MARIA Acetaminophen 650 mg 05/07/21 16:00 05/11/21 16:25 Acetaminophen 650 Mg Rect Supp MI 650 mg Q4H PRN Administration Pain, Mild (1-3) Apixaban 5 mg 05/20/21 11:00 05/23/21 11:42 Apixaban 5 Mg Tab PO Not Given Q12HR [facility] Protocol Aspirin 81 mg 05/06/21 14:00 05/23/21 11:41 Aspirin 81 Mg Tab Chew PO 81 mg QDAY RISHI Administration Atorvastatin Calcium 40 mg 05/09/21 22:00 05/22/21 22:55 Atorvastatin 40 Mg Tab FEEDTUBE Not Given QHS RISHI Chlordiazepoxide HCl 75 mg 05/21/21 21:00 05/23/21 06:10 Chlordiazepoxide 25 Mg Cap PO 75 mg Q8HR RISHI Administration Dextrose 0 ml 05/09/21 10:49 05/14/21 06:55 Dextrose 10% *Hypoglycemia IV 250 ml PRN PRN Administration Hypoglycemia Famotidine 10 mg 05/17/21 10:00 05/23/21 11:42 Famotidine 10 Mg Tab FEEDTUBE 10 mg BID RISHI Administration Haloperidol Lactate 5 mg 05/09/21 18:32 05/18/21 19:52 Haloperidol Lactate 5 Mg/1 Ml Inj IV 5 mg Q6H PRN Administration Agitation Hydralazine HCl 50 mg 05/04/21 14:00 05/23/21 06:10 Hydralazine 25 Mg Tab PO 50 mg Q8HR RISHI Administration Hydrophilic Ointment 1 applic 05/05/21 15:21 Lip Therapy Vaseline TP Q2HR PRN Dry Lips Sodium Chloride 1,000 mls @ 75 mls/hr 05/23/21 11:00 Nacl 0.45% 1000 Ml IV DIRECT RISHI Ertapenem 0.5 gm/ Sodium 50 mls @ 100 mls/hr 05/23/21 14:00 Chloride IV QDAY [facility] Insulin Human Lispro 0 unit 05/10/21 09:40 05/12/21 16:49 Insulin Lispro 100 Unit/Ml SUB-Q 2 unit Q6HR PRN Administration Hyperglycemia Protocol Labetalol HCl 10 mg 05/15/21 10:24 Labetalol 20 Mg/4 Ml Inj IV Q4H PRN sbp> 160. Lorazepam 4 mg 05/21/21 18:37 Lorazepam 2 Mg/Ml Vial IV Q15MIN PRN CIWA-Ar >25 Lorazepam 4 mg 05/21/21 18:37 Lorazepam 2 Mg/Ml Vial IV Q1H PRN CIWA-Ar 16-25 Lorazepam 2 mg 05/21/21 18:37 05/22/21 15:10 Lorazepam 2 Mg/Ml Vial IV 2 mg Q1H PRN Administration CIWA-Ar 8-15 Metoprolol Tartrate 50 mg 05/10/21 14:00 05/23/21 11:41 Metoprolol Tartrate 50 Mg Tab FEEDTUBE 50 mg TID RISHI Administration Multi-Ingred Cream/Lotion/Oil/Oint 1 applic 05/05/21 15:21 Mineral Oil/Petrolatum, White Ophth Oint 3.5 Gm OU Q4HR PRN Dry Eye(s) Ondansetron HCl 4 mg 05/04/21 12:34 05/04/21 21:51 Ondansetron 4 Mg/2 Ml Inj IV 4 mg Q8H PRN Administration Nausea And Vomiting Quetiapine Fumarate 250 mg 05/22/21 15:30 05/23/21 11:41 Quetiapine 100 Mg Tab PO 250 mg BID RISHI Administration Senna/Docusate Sodium 1 tab 05/05/21 22:00 05/23/21 11:42 Sennosides/Docusate Sodium 8.6/50 Mg Tab FEEDTUBE 1 tab BID RISHI Administration Sodium Chloride 10 ml 05/04/21 22:00 05/23/21 11:43 Sodium Chloride 0.9% 10 Ml Flush Syringe IV 10 ml BID RISHI Administration Sodium Chloride 10 ml 05/04/21 12:34 05/06/21 13:59 Sodium Chloride 0.9% 10 Ml Flush Syringe IV 10 ml PRN PRN Administration LINE FLUSH Sodium Chloride 10 ml 05/09/21 09:46 Sodium Chloride 0.9% 50 Ml Ivpb IV PRN PRN FLUSH Nutrition/Malnutrition Assess - Dietary Evaluation Nutrition/Malnutrition Findings: Nutrition Notes Start: 05/05/21 16:15 Freq: Status: Active Protocol: Document 05/23/21 11:25 [facility] (Rec: 05/23/21 11:34 [facility] [id number]) Nutrition Notes Initial or Follow up Reassessment Current Diagnosis Acute Kidney Injury, Hypertension,Heart Failure, Respiratory Failure Other Pertinent Diagnosis Severe COVID-19 pneu, metabolic encephalopathy, polysubstance dependence Current Diet TF - Nepro at 60ml/hr Labs/Tests BUN 62 Cr 2.8 K 4.4 (was 5.7 and 5.2 on 05/21 and 05/22, respectively) Pertinent Medications reviewed Height 5 ft 7 in Weight 81.647 kg [place] Body Weight (kg) 67.27 BMI 28.1 Weight Status Overweight Subjective/Other Information TOOL DESIGN ENGINEER unable to arouse pt on 05/21 and 05/22 for evaluation. Marketing Intelligence Manager changed TF formula sec to worsening renal function. Pt on BiPap support. Percent of energy/protein needs met: 135% energy 100% pro Burn Absent Trauma Absent #1 Nutrition Diagnosis Inadequate oral intake Diagnosis Progress(for reassessment Continues documentation) Is patient on ventilator? No Is Patient Ambulatory and/or Out of Bed No [facility] [phone] Calculation Used for [facility] Additional Notes Pro needs 1.2-2g/k-163g/ day Fluid needs 1ml/kcal Nutrition Intervention Nutrition Support: Decrease Nepro rate to 45ml/hr , as current rate provides excess kcal. Provide 200ml water flush q4h. 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
[2021-05-23] MEDS ORDERED: ERTAPENEM 1 GM in SODIUM CHLORIDE 0.9% 50 ML IV SCH (14:00)
[2021-05-23] MEDS ORDERED: SUCCINYLCHOLINE CHLORIDE 200 MG/10 ML INJ MDV ONE (14:15)
[2021-05-23] MEDS ORDERED: ETOMIDATE 20 MG/10 ML INJ IV ONE (14:15)
--- NOTE | 2021-05-23 14:50 | Event Note ---
Date: 05/23/21 (Intubation) Requested by Dr. Steinberg to intubate patient 14:26 Meds Etomidate 20mg + Pablo 100 mg Glidescope X 1 attempt 8.0 OETT @ 20cm +BBS/CO2 VSS
--- NOTE | 2021-05-23 15:42 | Event Note ---
Date: 05/23/21 56-year-old male with multiple medical issues including Covid pneumonia who has been in the ICU for multiple days with right lower extremity DVT, VQ scan demonstrating very low probability, and recent hemoglobin drop of 3 units. Patient had recent drop of hemoglobin 3 units. No clear etiology noted at this time. Stool guaiac sent off. DVT was a right infrapopliteal peroneal vein deep venous thrombus which is a small thrombus load overall. May have already resolved. Ordered repeat venous studies. May use SCDs or MILENA hose in the interim to prevent propagation. VQ scan very low suggesting no evidence of pulmonary embolism. Awaiting results from repeated DVT studies. Based on these results, can make a determination about IVC filter placement. Suspect no filter will be needed at this time but await ultrasound results.
--- NOTE | 2021-05-23 15:54 | XRay Report ---
CHEST 1 VIEW 05/23/2021 3:28 PM INDICATION / CLINICAL INFORMATION: ETT placement. COMPARISON: 05/21/2021 FINDINGS: SUPPORT DEVICES: Nasogastric tube descends into the stomach. Tip of endotracheal tube is positioned a pproximately 7 cm above the chano. HEART / MEDIASTINUM: No significant abnormality. LUNGS / PLEURA: Parenchymal opacity in the right base appears unchanged. There has been mild improvem ent in the left lung base. No pneumothorax. ADDITIONAL FINDINGS: No significant additional findings. IMPRESSION: 1. Tip of endotracheal tube projects at the level the clavicles approximately 7 cm above the chano. 2. There is been interval improvement in airspace opacity in the left lung base. Signer Name: Pradip Jackman MD Signed: 05/23/2021 3:50 PM Workstation Name: [id number]
[2021-05-23 16:41] LABS: ABG Base Excess 1.7 mmol/L (-2.0-3.0); ABG HCO3 25.8 mmol/L (20.0-26.0); ABG Methemoglobin 0.4 % (0.0-1.5); ABG Oxygen Saturation 99.5 % (95.0-99.0); ABG PH 7.449 pH Units (7.350-7.450)
[2021-05-23 16:46] LABS: ABG PO2 294.7 mm Hg (80.0-90.0)
[2021-05-23 16:50] LABS: Bilirubin,Urine NEG (Negative); Blood,Urine MOD (Negative); Color,Urine Yellow (Yellow); Mucus,Urine FEW /HPF; Urobilinogen,Urine < 2.0 mg/dL (<2.0)
[2021-05-23] MEDS: ERTAPENEM 0.5 GM in SODIUM CHLORIDE 0.9% 50 ML IV SCH (16:55)
[2021-05-23] MEDS: PANTOPRAZOLE 40 MG INJ IV SCH ×2 (16:55→21:11)
[2021-05-23 16:57] LABS: Creatinine,Urine 100.1 mg/dL (0.1-20.0)
[2021-05-23 16:58] LABS: Fractional Sodium Excretion 0.3
[2021-05-23 17:00] LABS: Amorphous Crystals,Urine 2+; Bacteria,Urine 1+ /HPF (Negative)
--- NOTE | 2021-05-23 17:28 | Vascular Lab Report ---
Bilateral lower extremity Doppler venous ultrasound INDICATION: Pain FINDINGS: Bilateral common femoral veins, superficial femoral veins and popliteal veins have normal c ompressibility and phasic flow. IMPRESSION: No evidence for DVT. Signer Name: Master Cantu MD Signed: 05/23/2021 5:24 PM Workstation Name: [id number]
[2021-05-23 17:52] LABS: Iron 10 ug/dL (49-181); Total Iron Binding Capacity 151 mcg/dL (250-450)
--- NOTE | 2021-05-23 19:00 | Progress Note ---
Assessment and Plan 56-year-old male with a past medical history of smoking, A. fib, hypertension, and chronic medication noncompliance and homelessness presents to the hospital with complaints of dyspnea exertion x1 month progressively worsening for last 3 days. Patient also having intermittent left-sided chest tightness with activity. Patient complains of a persistent cough without fever. He is unvaccinated for COVID. Patient was admitted here August 2020 for bilateral pneumonia with hypoxia and was COVID-negative at that time. Patient was seen in the ED April 12 for chest pain and subsequently discharged with a refill his medications. Patient never filled the prescriptions and states he has not taking any of his meds for the past year because he cannot afford medications. He denies previous history of stress test. Patient denies any cough or cold- like symptoms. No headache or visual disturbances. Patient denies any associated shortness of breath or diaphoresis. Patients Goodman virus PCR positive. Patients D dimer 2730.67 Patient treated with decadron,I/V heparin, famotidine. Patient sleeping at this time. On BIPAP 18/8, rate 22, FIO2 40% and O2 saturation running 100%. Patient has slight increase in work of breathing. Patient febrile. Has leukocytosis. Blood pressure 117/84, Pulse 85, Respirations 23 Chest xray done 05/12/21 reported Increased pulmonary interstitial prominence and opacities in bilateral lower lungs with left effusion No pneumothorax. Venous doppler studies of legs 05/11/21 reported Acute DVT in the right peroneal veins. Chest xray done 05/20/21 reported Suspect developing right basilar pneumonia. Patients respiratory status deteriorated. Patient intubated and placed on mechanical ventilation. Patient is on assist control, rate 16, Tidal volume 450, FIO2 70%, PEEP 6. O2 saturation running 100%. ABG ABG pH 7.449 pH Units (7.350-7.450) 05/23/21 14:15 ABG pCO2 38.0 mm Hg 05/23/21 14:15 ABG pO2 294.7 mm Hg (80.0-90.0) H 05/23/21 14:15 ABG O2 Saturation 99.5 % (95.0-99.0) H 05/23/21 14:15 Recommend to decrease FIO2 to 50%. Continue rest of the ventilator settings. Patient not responding to verbal stimuli. Blood pressure 90/60, pulse 81, Resp 25. Patient received fluid Bolus. Chest xray done 05/23/21 reported tip of endotracheal tube projects at the level the clavicles approximately 7 cm above the chano. There is been interval improvement in airspace opacity in the left lung base. Patient presently on Ertapenum and Protonix. Patient is on tube feeding. I spent critical care time of 35 minutes, reviewing the chart, examine the patie nt, review chest xray and lab results, talking to the respiratory therapy and nursing staff and work out plan of treatment in this critically ill patient. - Patient Problems (1) Acute hypoxemic respiratory failure Current Visit: No Status: Acute Plan to address problem: Mechanical ventilation, assist control, rate 16, Tidal volume 450, FIO2 70%, PEEP 6 Continue Proltonix. Albuterol inhaler 2 puffs po qid. Recommend I/V Heparin If no contra indication. (2) Bilateral pneumonia Current Visit: No Status: Acute Plan to address problem: Patient is on Ertapenum (3) ARF (acute renal failure) Current Visit: Yes Status: Acute Plan to address problem: Management as per Nephrology. (4) Elevated d-dimer Current Visit: Yes Status: Acute Plan to address problem: Recommend I/V heparin if no contraindication. (5) Right leg DVT Current Visit: Yes Status: Acute Plan to address problem: Recommend I/V heparin if no contraindication. (6) NSTEMI (non-ST elevated myocardial infarction) Current Visit: Yes Status: Acute Plan to address problem: Management as per cardiology. (7) Polysubstance abuse Current Visit: Yes Status: Acute Plan to address problem: Management as per primary care. (8) Hypertension Current Visit: Yes Status: Chronic Plan to address problem: Management as per primary care. Patient hypotensive at this time. Fluid Bolus given. (9) Coronavirus infection Current Visit: Yes Status: Acute Plan to address problem: Management as per Infectious disease specialists. Subjective Date of service: 05/23/21 Principal diagnosis: AHRF; COVID-19 infection; NSTEMI; YE; HFrEF (35-40%); Polysubstance abuse Interval history: 56-year-old male with a past medical history of smoking, A. fib, hypertension, and chronic medication noncompliance and homelessness presents to the hospital with complaints of dyspnea exertion x1 month progressively worsening for last 3 days. Patient also having intermittent left-sided chest tightness with activity. Patient complains of a persistent cough without fever. He is unvaccinated for COVID. Patient was admitted here August 2020 for bilateral pneumonia with hypoxia and was COVID-negative at that time. Patient was seen in the ED April 12 for chest pain and subsequently discharged with a refill his medications. Patient never filled the prescriptions and states he has not t aking any of his meds for the past year because he cannot afford medications. He denies previous history of stress test. Patient denies any cough or cold- like symptoms. No headache or visual disturbances. Patient denies any associated shortness of breath or diaphoresis. Patients Goodman virus PCR positive. Patients D dimer 2730.67 Patient treated with decadron,I/V heparin, famotidine. Patient sleeping at this time. On BIPAP 18/8, rate 22, FIO2 40% and O2 saturation running 100%. Patient has slight increase in work of breathing. Patient febrile. Has leukocytosis. Blood pressure 117/84, Pulse 85, Respirations 23 Chest xray done 05/12/21 reported Increased pulmonary interstitial prominence and opacities in bilateral lower lungs with left effusion No pneumothorax. Venous doppler studies of legs 05/11/21 reported Acute DVT in the right peroneal veins. Chest xray done 05/20/21 reported Suspect developing right basilar pneumonia. Patients respiratory status deteriorated. Patient intubated and placed on mechanical ventilation. Patient is on assist control, rate 16, Tidal volume 450, FIO2 70%, PEEP 6. O2 saturation running 100%. ABG ABG pH 7.449 pH Units (7.350-7.450) 05/23/21 14:15 ABG pCO2 38.0 mm Hg 05/23/21 14:15 ABG pO2 294.7 mm Hg (80.0-90.0) H 05/23/21 14:15 ABG O2 Saturation 99.5 % (95.0-99.0) H 05/23/21 14:15 Recommend to decrease FIO2 to 50%. Continue rest of the ventilator settings. Patient not responding to verbal stimuli. Blood pressure 90/60, pulse 81, Resp 25. Patient received fluid Bolus. Chest xray done 05/23/21 reported tip of endotracheal tube projects at the level the clavicles approximately 7 cm above the chano. There is been interval improvement in airspace opacity in the left lung base. Patient presently on Ertapenum and Protonix. Patient is on tube feeding. Objective Vital Signs - 12hr 05/23/21 05/23/21 05/23/21 07:00 07:10 07:20 Temperature 97.8 F Pulse Rate 91 H 91 H 98 H Pulse Rate [ From Monitor] Respiratory 24 37 H 35 H Rate Blood Pressure 132/87 132/87 132/87 O2 Sat by Pulse 100 100 99 Oximetry 05/23/21 05/23/21 05/23/21 07:30 07:40 07:50 Temperature Pulse Rate 98 H 100 H 102 H Pulse Rate [ From Monitor] Respiratory 37 H 35 H 36 H Rate Blood Pressure 132/87 132/87 132/87 O2 Sat by Pulse 98 99 95 Oximetry 05/23/21 05/23/21 05/23/21 08:00 08:10 08:20 Temperature Pulse Rate 78 95 H 104 H Pulse Rate [ 78 From Monitor] Respiratory 20 36 H 37 H Rate Blood Pressure 129/96 129/96 129/96 O2 Sat by Pulse 100 79 L 86 Oximetry 05/23/21 05/23/21 05/23/21 08:30 08:40 08:45 Temperature Pulse Rate 103 H 98 H 98 H Pulse Rate [ From Monitor] Respiratory 37 H 36 H 36 H Rate Blood Pressure 129/96 129/96 130/70 O2 Sat by Pulse 85 84 91 Oximetry 05/23/21 05/23/21 05/23/21 08:50 09:00 09:10 Temperature Pulse Rate 96 H 101 H 102 H Pulse Rate [ From Monitor] Respiratory 36 H 36 H 36 H Rate Blood Pressure 129/96 127/84 127/84 O2 Sat by Pulse 84 92 92 Oximetry 05/23/21 05/23/21 05/23/21 09:20 09:30 09:40 Temperature Pulse Rate 100 H 99 H 98 H Pulse Rate [ From Monitor] Respiratory 36 H 37 H 37 H Rate Blood Pressure 127/84 127/84 127/84 O2 Sat by Pulse 94 94 94 Oximetry 05/23/21 05/23/21 05/23/21 09:50 10:00 10:10 Temperature Pulse Rate 98 H 99 H 97 H Pulse Rate [ From Monitor] Respiratory 36 H 39 H 37 H Rate Blood Pressure 127/84 122/81 122/81 O2 Sat by Pulse 94 96 94 Oximetry 05/23/21 05/23/21 05/23/21 10:20 10:30 10:40 Temperature Pulse Rate 95 H 97 H 101 H Pulse Rate [ From Monitor] Respiratory 38 H 38 H 39 H Rate Blood Pressure 122/81 122/81 122/81 O2 Sat by Pulse 96 95 95 Oximetry 05/23/21 05/23/21 05/23/21 10:50 11:00 11:11 Temperature Pulse Rate 102 H 103 H 104 H Pulse Rate [ From Monitor] Respiratory 37 H 37 H 37 H Rate Blood Pressure 122/81 130/84 122/81 O2 Sat by Pulse 96 95 96 Oximetry 05/23/21 05/23/21 05/23/21 11:21 11:31 11:33 Temperature 98.8 F Pulse Rate 106 H 106 H Pulse Rate [ From Monitor] Respiratory 37 H 36 H Rate Blood Pressure 122/81 122/81 O2 Sat by Pulse 97 98 Oximetry 05/23/21 05/23/21 05/23/21 11:41 11:51 12:00 Temperature Pulse Rate 107 H 102 H 82 Pulse Rate [ 80 From Monitor] Respiratory 39 H 35 H 22 Rate Blood Pressure 122/81 122/81 111/74 O2 Sat by Pulse 100 100 100 Oximetry 05/23/21 05/23/21 05/23/21 12:11 12:21 12:28 Temperature Pulse Rate 98 H 95 H 93 H Pulse Rate [ From Monitor] Respiratory 35 H 37 H 38 H Rate Blood Pressure 111/74 111/74 111/74 O2 Sat by Pulse 100 100 100 Oximetry 05/23/21 05/23/21 05/23/21 12:31 12:41 12:51 Temperature Pulse Rate 93 H 91 H 89 Pulse Rate [ From Monitor] Respiratory 37 H 35 H 35 H Rate Blood Pressure 111/74 111/74 111/74 O2 Sat by Pulse 100 100 100 Oximetry 05/23/21 05/23/21 05/23/21 13:00 14:00 14:30 Temperature 99.1 F Pulse Rate 88 89 84 Pulse Rate [ From Monitor] Respiratory 35 H 36 H Rate Blood Pressure 105/71 123/88 105/67 O2 Sat by Pulse 100 100 100 Oximetry 05/23/21 05/23/21 05/23/21 15:01 15:30 16:00 Temperature 99.8 F H Pulse Rate 87 85 84 Pulse Rate [ From Monitor] Respiratory 26 H 22 20 Rate Blood Pressure 90/64 O2 Sat by Pulse 100 100 100 Oximetry 05/23/21 05/23/21 05/23/21 16:40 17:00 17:16 Temperature 98.6 F Pulse Rate 84 86 Pulse Rate [ From Monitor] Respiratory 26 H Rate Blood Pressure 103/73 113/83 O2 Sat by Pulse 100 100 Oximetry 05/23/21 18:01 Temperature Pulse Rate 82 Pulse Rate [ From Monitor] Respiratory 23 Rate Blood Pressure 93/53 O2 Sat by Pulse 100 Oximetry Constitutional: asleep, appears uncomfortable, other (middle aged male intubated and placed on assist control mechanical ventilation.) Eyes: non-icteric ENT: other (BIPAP FFM) Neck: supple, no lymphadenopathy, no JVD Effort: very labored Ascultation: Bilateral: diminished breath sounds, rhonchi (bases) Percussion: Bilateral: not dull Cardiovascular: regular rate and rhythm, other (S1,S2) Gastrointestinal: normoactive bowel sounds, soft, non-tender, non-distended Integumentary: normal Extremities: no cyanosis, no edema, pulses normal Neurologic: non-focal exam (grossly), unable to assess (sedated) Psychiatric: other CBC and BMP: 05/24/21 04:11 05/24/21 04:11 ABG, PT/INR, D-dimer: ABG ABG pH 7.449 pH Units (7.350-7.450) 05/23/21 14:15 ABG pCO2 38.0 mm Hg 05/23/21 14:15 ABG pO2 294.7 mm Hg (80.0-90.0) H 05/23/21 14:15 ABG O2 Saturation 99.5 % (95.0-99.0) H 05/23/21 14:15 PT/INR, D-dimer PT 13.6 Sec. (12.2-14.9) 05/19/21 19:36 INR 0.94 (0.87-1.13) 05/19/21 19:36 D-Dimer 2730.61 ng/mlDDU (0-234) H 05/12/21 07:19 Abnormal lab findings: Abnormal Labs 05/04/21 05/04/21 05/04/21 07:25 07:25 07:25 WBC 12.9 H RBC 3.04 L Hgb 9.5 L Hct 28.4 L MCV MCHC RDW 15.4 H Lymph % (Auto) 11.4 L [place] % (Auto) 10.1 H Lymph # (Auto) [place] # (Auto) 1.3 H Seg Neutrophils % 78.0 H Seg Neuts % (Manual) Lymphocytes % (Manual) Monocytes % (Manual) Seg Neutrophils # 10.0 H Seg Neutrophils # Man Lymphocytes # (Manual) Monocytes # (Manual) PT 15.1 H APTT D-Dimer Heparin Anti-Xa Level ABG pH ABG pO2 ABG HCO3 ABG O2 Saturation ABG Base Excess ABG Hemoglobin Oxyhemoglobin Sodium 135 L Potassium Chloride Carbon Dioxide BUN 65 H Creatinine 3.4 H Glucose 118 H POC Glucose Calcium Iron TIBC Ferritin Total Bilirubin 1.50 H AST 519 H ALT 475 H Lactate Dehydrogenase Total Creatine Kinase Troponin T 1.300 H* C-Reactive Protein Albumin Urine WBC (Auto) Urine Creatinine Urine Total Protein Complement C3 Coronavirus (PCR) Hepatitis C Antibody Crossmatch 05/04/21 05/04/21 05/04/21 07:25 08:42 08:42 WBC RBC Hgb Hct MCV MCHC RDW Lymph % (Auto) [place] % (Auto) Lymph # (Auto) [place] # (Auto) Seg Neutrophils % Seg Neuts % (Manual) Lymphocytes % (Manual) Monocytes % (Manual) Seg Neutrophils # Seg Neutrophils # Man Lymphocytes # (Manual) Monocytes # (Manual) PT APTT D-Dimer 579.49 H Heparin Anti-Xa Level ABG pH ABG pO2 ABG HCO3 ABG O2 Saturation ABG Base Excess ABG Hemoglobin Oxyhemoglobin Sodium Potassium Chloride Carbon Dioxide BUN Creatinine Glucose POC Glucose Calcium Iron TIBC Ferritin Total Bilirubin AST ALT Lactate Dehydrogenase Total Creatine Kinase 406 H Troponin T 1.230 H* C-Reactive Protein Albumin Urine WBC (Auto) Urine Creatinine Urine Total Protein Complement C3 Coronavirus (PCR) Hepatitis C Antibody Crossmatch 05/04/21 05/04/21 05/04/21 10:13 13:34 18:14 WBC RBC Hgb 8.8 L Hct 26.6 L MCV MCHC RDW Lymph % (Auto) [place] % (Auto) Lymph # (Auto) [place] # (Auto) Seg Neutrophils % Seg Neuts % (Manual) Lymphocytes % (Manual) Monocytes % (Manual) Seg Neutrophils # Seg Neutrophils # Man Lymphocytes # (Manual) Monocytes # (Manual) PT APTT D-Dimer Heparin Anti-Xa Level < 0.10 L ABG pH ABG pO2 ABG HCO3 ABG O2 Saturation ABG Base Excess ABG Hemoglobin Oxyhemoglobin Sodium Potassium Chloride Carbon Dioxide BUN Creatinine Glucose POC Glucose Calcium Iron TIBC Ferritin Total Bilirubin AST ALT Lactate Dehydrogenase Total Creatine Kinase Troponin T 1.400 H* C-Reactive Protein Albumin Urine WBC (Auto) Urine Creatinine Urine Total Protein Complement C3 Coronavirus (PCR) Hepatitis C Antibody Crossmatch 05/05/21 05/05/21 05/05/21 03:40 03:40 03:40 WBC RBC Hgb Hct MCV MCHC RDW Lymph % (Auto) [place] % (Auto) Lymph # (Auto) [place] # (Auto) Seg Neutrophils % Seg Neuts % (Manual) Lymphocytes % (Manual) Monocytes % (Manual) Seg Neutrophils # Seg Neutrophils # Man Lymphocytes # (Manual) Monocytes # (Manual) PT APTT D-Dimer Heparin Anti-Xa Level 0.11 L ABG pH ABG pO2 ABG HCO3 ABG O2 Saturation ABG Base Excess ABG Hemoglobin Oxyhemoglobin Sodium Potassium 3.3 L Chloride Carbon Dioxide BUN 59 H Creatinine 2.6 H Glucose 139 H POC Glucose Calcium Iron TIBC Ferritin Total Bilirubin AST ALT Lactate Dehydrogenase Total Creatine Kinase Troponin T C-Reactive Protein Albumin Urine WBC (Auto) Urine Creatinine Urine Total Protein Complement C3 Coronavirus (PCR) Hepatitis C Antibody Reactive A Crossmatch 05/05/21 05/05/21 05/05/21 03:40 08:30 09:57 WBC RBC Hgb Hct MCV MCHC RDW Lymph % (Auto) [place] % (Auto) Lymph # (Auto) [place] # (Auto) Seg Neutrophils % Seg Neuts % (Manual) Lymphocytes % (Manual) Monocytes % (Manual) Seg Neutrophils # Seg Neutrophils # Man Lymphocytes # (Manual) Monocytes # (Manual) PT APTT D-Dimer Heparin Anti-Xa Level ABG pH ABG pO2 ABG HCO3 ABG O2 Saturation ABG Base Excess ABG Hemoglobin Oxyhemoglobin Sodium Potassium Chloride Carbon Dioxide BUN Creatinine Glucose POC Glucose Calcium Iron TIBC Ferritin Total Bilirubin AST ALT Lactate Dehydrogenase Total Creatine Kinase Troponin T C-Reactive Protein Albumin Urine WBC (Auto) Urine Creatinine 100.8 H Urine Total Protein Complement C3 72 L Coronavirus (PCR) Positive A Hepatitis C Antibody Crossmatch 05/05/21 05/05/21 05/05/21 11:28 17:00 19:51 WBC RBC Hgb Hct MCV MCHC RDW Lymph % (Auto) [place] % (Auto) Lymph # (Auto) [place] # (Auto) Seg Neutrophils % Seg Neuts % (Manual) Lymphocytes % (Manual) Monocytes % (Manual) Seg Neutrophils # Seg Neutrophils # Man Lymphocytes # (Manual) Monocytes # (Manual) PT APTT D-Dimer Heparin Anti-Xa Level 0.10 L 0.22 L ABG pH 7.304 L ABG pO2 140.8 H ABG HCO3 ABG O2 Saturation ABG Base Excess -2.1 L ABG Hemoglobin 10.2 L Oxyhemoglobin Sodium Potassium Chloride Carbon Dioxide BUN Creatinine Glucose POC Glucose Calcium Iron TIBC Ferritin Total Bilirubin AST ALT Lactate Dehydrogenase Total Creatine Kinase Troponin T C-Reactive Protein Albumin Urine WBC (Auto) Urine Creatinine Urine Total Protein Complement C3 Coronavirus (PCR) Hepatitis C Antibody Crossmatch 05/06/21 05/06/21 05/06/21 03:47 06:15 17:53 WBC RBC Hgb 9.0 L Hct 27.8 L MCV MCHC RDW Lymph % (Auto) [place] % (Auto) Lymph # (Auto) [place] # (Auto) Seg Neutrophils % Seg Neuts % (Manual) Lymphocytes % (Manual) Monocytes % (Manual) Seg Neutrophils # Seg Neutrophils # Man Lymphocytes # (Manual) Monocytes # (Manual) PT APTT D-Dimer Heparin Anti-Xa Level 0.10 L ABG pH ABG pO2 143.5 H ABG HCO3 ABG O2 Saturation ABG Base Excess -2.4 L ABG Hemoglobin 6.9 L Oxyhemoglobin Sodium Potassium Chloride Carbon Dioxide BUN Creatinine Glucose POC Glucose Calcium Iron TIBC Ferritin Total Bilirubin AST ALT Lactate Dehydrogenase Total Creatine Kinase Troponin T C-Reactive Protein Albumin Urine WBC (Auto) Urine Creatinine Urine Total Protein Complement C3 Coronavirus (PCR) Hepatitis C Antibody Crossmatch 05/07/21 05/07/21 05/07/21 00:07 03:22 03:45 WBC RBC Hgb Hct MCV MCHC RDW Lymph % (Auto) [place] % (Auto) Lymph # (Auto) [place] # (Auto) Seg Neutrophils % Seg Neuts % (Manual) Lymphocytes % (Manual) Monocytes % (Manual) Seg Neutrophils # Seg Neutrophils # Man Lymphocytes # (Manual) Monocytes # (Manual) PT APTT D-Dimer Heparin Anti-Xa Level < 0.10 L ABG pH ABG pO2 104.3 H ABG HCO3 ABG O2 Saturation ABG Base Excess -2.6 L ABG Hemoglobin 9.1 L Oxyhemoglobin Sodium Potassium Chloride 107.1 H Carbon Dioxide 20 L BUN 56 H Creatinine 2.9 H Glucose POC Glucose Calcium Iron TIBC Ferritin Total Bilirubin AST ALT Lactate Dehydrogenase Total Creatine Kinase Troponin T C-Reactive Protein Albumin Urine WBC (Auto) Urine Creatinine Urine Total Protein Complement C3 Coronavirus (PCR) Hepatitis C Antibody Crossmatch 05/07/21 05/07/21 05/07/21 07:44 16:28 22:41 WBC RBC Hgb Hct MCV MCHC RDW Lymph % (Auto) [place] % (Auto) Lymph # (Auto) [place] # (Auto) Seg Neutrophils % Seg Neuts % (Manual) Lymphocytes % (Manual) Monocytes % (Manual) Seg Neutrophils # Seg Neutrophils # Man Lymphocytes # (Manual) Monocytes # (Manual) PT APTT D-Dimer Heparin Anti-Xa Level < 0.10 L 0.10 L < 0.10 L ABG pH ABG pO2 ABG HCO3 ABG O2 Saturation ABG Base Excess ABG Hemoglobin Oxyhemoglobin Sodium Potassium Chloride Carbon Dioxide BUN Creatinine Glucose POC Glucose Calcium Iron TIBC Ferritin Total Bilirubin AST ALT Lactate Dehydrogenase Total Creatine Kinase Troponin T C-Reactive Protein Albumin Urine WBC (Auto) Urine Creatinine Urine Total Protein Complement C3 Coronavirus (PCR) Hepatitis C Antibody Crossmatch 05/08/21 05/08/21 05/08/21 03:25 04:34 07:30 WBC 12.4 H RBC 3.02 L Hgb 9.5 L Hct 29.2 L MCV 97 H MCHC RDW 16.7 H Lymph % (Auto) 8.1 L [place] % (Auto) 11.0 H Lymph # (Auto) 1.0 L [place] # (Auto) 1.4 H Seg Neutrophils % 80.1 H Seg Neuts % (Manual) Lymphocytes % (Manual) Monocytes % (Manual) Seg Neutrophils # 9.9 H Seg Neutrophils # Man Lymphocytes # (Manual) Monocytes # (Manual) PT APTT D-Dimer Heparin Anti-Xa Level ABG pH ABG pO2 139.0 H ABG HCO3 ABG O2 Saturation ABG Base Excess ABG Hemoglobin 8.8 L Oxyhemoglobin Sodium Potassium Chloride 110.5 H Carbon Dioxide BUN 59 H Creatinine 2.8 H Glucose 103 H POC Glucose Calcium Iron TIBC Ferritin Total Bilirubin AST ALT 327 H Lactate Dehydrogenase Total Creatine Kinase Troponin T C-Reactive Protein Albumin 3.1 L Urine WBC (Auto) Urine Creatinine Urine Total Protein Complement C3 Coronavirus (PCR) Hepatitis C Antibody Crossmatch 05/09/21 05/09/21 05/09/21 04:10 04:20 04:20 WBC 11.7 H RBC 2.79 L Hgb 8.7 L Hct 26.5 L MCV 95 H MCHC RDW 16.2 H Lymph % (Auto) [place] % (Auto) Lymph # (Auto) [place] # (Auto) Seg Neutrophils % Seg Neuts % (Manual) Lymphocytes % (Manual) Monocytes % (Manual) Seg Neutrophils # Seg Neutrophils # Man Lymphocytes # (Manual) Monocytes # (Manual) PT APTT D-Dimer Heparin Anti-Xa Level ABG pH ABG pO2 161.6 H ABG HCO3 ABG O2 Saturation ABG Base Excess ABG Hemoglobin 8.3 L Oxyhemoglobin Sodium 151 H Potassium Chloride 114.5 H Carbon Dioxide 21 L BUN 57 H Creatinine 2.4 H Glucose POC Glucose Calcium Iron TIBC Ferritin Total Bilirubin AST ALT 210 H Lactate Dehydrogenase Total Creatine Kinase Troponin T C-Reactive Protein Albumin 2.9 L Urine WBC (Auto) Urine Creatinine Urine Total Protein Complement C3 Coronavirus (PCR) Hepatitis C Antibody Crossmatch 05/09/21 05/09/21 05/09/21 09:48 09:48 13:22 WBC 11.6 H RBC 3.00 L Hgb 9.0 L Hct 28.4 L MCV MCHC RDW 15.9 H Lymph % (Auto) 5.9 L [place] % (Auto) 8.9 H Lymph # (Auto) 0.7 L [place] # (Auto) 1.0 H Seg Neutrophils % 84.3 H Seg Neuts % (Manual) Lymphocytes % (Manual) Monocytes % (Manual) Seg Neutrophils # 9.8 H Seg Neutrophils # Man Lymphocytes # (Manual) Monocytes # (Manual) PT APTT D-Dimer Heparin Anti-Xa Level ABG pH ABG pO2 ABG HCO3 ABG O2 Saturation ABG Base Excess ABG Hemoglobin Oxyhemoglobin Sodium Potassium Chloride Carbon Dioxide BUN Creatinine Glucose POC Glucose Calcium Iron TIBC Ferritin Total Bilirubin AST ALT Lactate Dehydrogenase Total Creatine Kinase Troponin T C-Reactive Protein 8.70 H Albumin Urine WBC (Auto) 25.0 H Urine Creatinine Urine Total Protein Complement C3 Coronavirus (PCR) Hepatitis C Antibody Crossmatch 05/09/21 05/09/21 05/10/21 15:20 18:16 04:57 WBC RBC 2.87 L Hgb 8.8 L Hct 27.0 L MCV MCHC RDW 15.9 H Lymph % (Auto) [place] % (Auto) Lymph # (Auto) [place] # (Auto) Seg Neutrophils % Seg Neuts % (Manual) Lymphocytes % (Manual) Monocytes % (Manual) Seg Neutrophils # Seg Neutrophils # Man Lymphocytes # (Manual) Monocytes # (Manual) PT APTT D-Dimer Heparin Anti-Xa Level ABG pH ABG pO2 102.0 H ABG HCO3 ABG O2 Saturation ABG Base Excess -2.8 L ABG Hemoglobin 9.0 L Oxyhemoglobin Sodium Potassium Chloride Carbon Dioxide BUN Creatinine Glucose POC Glucose 130 H Calcium Iron TIBC Ferritin Total Bilirubin AST ALT Lactate Dehydrogenase Total Creatine Kinase Troponin T C-Reactive Protein Albumin Urine WBC (Auto) Urine Creatinine Urine Total Protein Complement C3 Coronavirus (PCR) Hepatitis C Antibody Crossmatch 05/10/21 05/10/21 05/10/21 04:57 04:57 04:57 WBC RBC Hgb Hct MCV MCHC RDW Lymph % (Auto) [place] % (Auto) Lymph # (Auto) [place] # (Auto) Seg Neutrophils % Seg Neuts % (Manual) Lymphocytes % (Manual) Monocytes % (Manual) Seg Neutrophils # Seg Neutrophils # Man Lymphocytes # (Manual) Monocytes # (Manual) PT APTT D-Dimer 1546.78 H Heparin Anti-Xa Level ABG pH ABG pO2 ABG HCO3 ABG O2 Saturation ABG Base Excess ABG Hemoglobin Oxyhemoglobin Sodium 148 H Potassium Chloride 114.9 H Carbon Dioxide 21 L BUN 57 H Creatinine 2.3 H Glucose 157 H POC Glucose Calcium Iron TIBC Ferritin 888.2 H Total Bilirubin AST ALT Lactate Dehydrogenase 289 H Total Creatine Kinase Troponin T C-Reactive Protein 6.80 H Albumin Urine WBC (Auto) Urine Creatinine Urine Total Protein Complement C3 Coronavirus (PCR) Hepatitis C Antibody Crossmatch 05/10/21 05/10/21 05/10/21 05:09 08:04 11:03 WBC RBC Hgb Hct MCV MCHC RDW Lymph % (Auto) [place] % (Auto) Lymph # (Auto) [place] # (Auto) Seg Neutrophils % Seg Neuts % (Manual) Lymphocytes % (Manual) Monocytes % (Manual) Seg Neutrophils # Seg Neutrophils # Man Lymphocytes # (Manual) Monocytes # (Manual) PT APTT D-Dimer Heparin Anti-Xa Level ABG pH 7.473 H ABG pO2 114.6 H ABG HCO3 ABG O2 Saturation ABG Base Excess ABG Hemoglobin 9.5 L Oxyhemoglobin Sodium Potassium Chloride Carbon Dioxide BUN Creatinine Glucose POC Glucose 152 H Calcium Iron TIBC Ferritin Total Bilirubin AST ALT Lactate Dehydrogenase Total Creatine Kinase Troponin T C-Reactive Protein Albumin Urine WBC (Auto) Urine Creatinine 100.8 H Urine Total Protein 42 H Complement C3 Coronavirus (PCR) Hepatitis C Antibody Crossmatch 05/10/21 05/10/21 05/10/21 13:07 18:01 23:31 WBC RBC Hgb Hct MCV MCHC RDW Lymph % (Auto) [place] % (Auto) Lymph # (Auto) [place] # (Auto) Seg Neutrophils % Seg Neuts % (Manual) Lymphocytes % (Manual) Monocytes % (Manual) Seg Neutrophils # Seg Neutrophils # Man Lymphocytes # (Manual) Monocytes # (Manual) PT APTT D-Dimer Heparin Anti-Xa Level ABG pH ABG pO2 ABG HCO3 ABG O2 Saturation ABG Base Excess ABG Hemoglobin Oxyhemoglobin Sodium Potassium Chloride Carbon Dioxide BUN Creatinine Glucose POC Glucose 150 H 189 H 142 H Calcium Iron TIBC Ferritin Total Bilirubin AST ALT Lactate Dehydrogenase Total Creatine Kinase Troponin T C-Reactive Protein Albumin Urine WBC (Auto) Urine Creatinine Urine Total Protein Complement C3 Coronavirus (PCR) Hepatitis C Antibody Crossmatch 05/10/21 05/11/21 05/11/21 Unknown 05:25 06:53 WBC RBC Hgb Hct MCV MCHC RDW Lymph % (Auto) [place] % (Auto) Lymph # (Auto) [place] # (Auto) Seg Neutrophils % Seg Neuts % (Manual) Lymphocytes % (Manual) Monocytes % (Manual) Seg Neutrophils # Seg Neutrophils # Man Lymphocytes # (Manual) Monocytes # (Manual) PT APTT D-Dimer Heparin Anti-Xa Level ABG pH ABG pO2 126.6 H ABG HCO3 ABG O2 Saturation ABG Base Excess ABG Hemoglobin 9.2 L Oxyhemoglobin Sodium 150 H Potassium Chloride 116.6 H Carbon Dioxide 21 L BUN 62 H Creatinine 2.5 H Glucose 142 H POC Glucose 163 H Calcium Iron TIBC Ferritin Total Bilirubin AST ALT Lactate Dehydrogenase Total Creatine Kinase Troponin T C-Reactive Protein Albumin Urine WBC (Auto) Urine Creatinine Urine Total Protein Complement C3 Coronavirus (PCR) Hepatitis C Antibody Crossmatch 05/11/21 05/11/21 05/11/21 06:53 11:06 13:51 WBC RBC 3.07 L Hgb 9.3 L Hct 29.0 L MCV 95 H MCHC RDW 16.1 H Lymph % (Auto) [place] % (Auto) Lymph # (Auto) [place] # (Auto) Seg Neutrophils % Seg Neuts % (Manual) Lymphocytes % (Manual) Monocytes % (Manual) Seg Neutrophils # Seg Neutrophils # Man Lymphocytes # (Manual) Monocytes # (Manual) PT APTT D-Dimer Heparin Anti-Xa Level ABG pH ABG pO2 74.9 L ABG HCO3 ABG O2 Saturation ABG Base Excess -3.3 L ABG Hemoglobin 10.8 L Oxyhemoglobin Sodium Potassium Chloride Carbon Dioxide BUN Creatinine Glucose POC Glucose 145 H Calcium Iron TIBC Ferritin Total Bilirubin AST ALT Lactate Dehydrogenase Total Creatine Kinase Troponin T C-Reactive Protein Albumin Urine WBC (Auto) Urine Creatinine Urine Total Protein Complement C3 Coronavirus (PCR) Hepatitis C Antibody Crossmatch 05/11/21 05/11/21 05/11/21 14:43 14:43 15:47 WBC RBC Hgb 9.2 L Hct 29.7 L MCV MCHC RDW Lymph % (Auto) [place] % (Auto) Lymph # (Auto) [place] # (Auto) Seg Neutrophils % Seg Neuts % (Manual) Lymphocytes % (Manual) Monocytes % (Manual) Seg Neutrophils # Seg Neutrophils # Man Lymphocytes # (Manual) Monocytes # (Manual) PT 15.6 H APTT D-Dimer Heparin Anti-Xa Level ABG pH ABG pO2 ABG HCO3 ABG O2 Saturation ABG Base Excess ABG Hemoglobin Oxyhemoglobin Sodium Potassium Chloride Carbon Dioxide BUN Creatinine Glucose POC Glucose 137 H Calcium Iron TIBC Ferritin Total Bilirubin AST ALT Lactate Dehydrogenase Total Creatine Kinase Troponin T C-Reactive Protein Albumin Urine WBC (Auto) Urine Creatinine Urine Total Protein Complement C3 Coronavirus (PCR) Hepatitis C Antibody Crossmatch 05/12/21 05/12/21 05/12/21 00:04 05:07 07:19 WBC 11.9 H RBC 3.00 L Hgb 9.1 L Hct 28.9 L MCV 96 H MCHC RDW 16.7 H Lymph % (Auto) 11.5 L [place] % (Auto) 8.2 H Lymph # (Auto) [place] # (Auto) 1.0 H Seg Neutrophils % 80.0 H Seg Neuts % (Manual) Lymphocytes % (Manual) Monocytes % (Manual) Seg Neutrophils # 9.6 H Seg Neutrophils # Man Lymphocytes # (Manual) Monocytes # (Manual) PT APTT D-Dimer Heparin Anti-Xa Level ABG pH ABG pO2 ABG HCO3 ABG O2 Saturation ABG Base Excess ABG Hemoglobin Oxyhemoglobin Sodium Potassium Chloride Carbon Dioxide BUN Creatinine Glucose POC Glucose 121 H 117 H Calcium Iron TIBC Ferritin Total Bilirubin AST ALT Lactate Dehydrogenase Total Creatine Kinase Troponin T C-Reactive Protein Albumin Urine WBC (Auto) Urine Creatinine Urine Total Protein Complement C3 Coronavirus (PCR) Hepatitis C Antibody Crossmatch 05/12/21 05/12/21 05/12/21 07:19 07:19 07:19 WBC RBC Hgb Hct MCV MCHC RDW Lymph % (Auto) [place] % (Auto) Lymph # (Auto) [place] # (Auto) Seg Neutrophils % Seg Neuts % (Manual) Lymphocytes % (Manual) Monocytes % (Manual) Seg Neutrophils # Seg Neutrophils # Man Lymphocytes # (Manual) Monocytes # (Manual) PT APTT D-Dimer 2730.61 H Heparin Anti-Xa Level ABG pH ABG pO2 ABG HCO3 ABG O2 Saturation ABG Base Excess ABG Hemoglobin Oxyhemoglobin Sodium 146 H Potassium 5.1 H Chloride 112.4 H Carbon Dioxide 21 L BUN 61 H Creatinine 2.2 H Glucose 136 H POC Glucose Calcium 8.1 L Iron TIBC Ferritin 640.2 H Total Bilirubin AST ALT Lactate Dehydrogenase 314 H Total Creatine Kinase Troponin T C-Reactive Protein 1.60 H Albumin Urine WBC (Auto) Urine Creatinine Urine Total Protein Complement C3 Coronavirus (PCR) Hepatitis C Antibody Crossmatch 05/12/21 05/12/21 05/12/21 11:10 16:10 16:38 WBC RBC Hgb Hct MCV MCHC RDW Lymph % (Auto) [place] % (Auto) Lymph # (Auto) [place] # (Auto) Seg Neutrophils % Seg Neuts % (Manual) Lymphocytes % (Manual) Monocytes % (Manual) Seg Neutrophils # Seg Neutrophils # Man Lymphocytes # (Manual) Monocytes # (Manual) PT APTT D-Dimer Heparin Anti-Xa Level 0.20 L ABG pH ABG pO2 ABG HCO3 ABG O2 Saturation ABG Base Excess ABG Hemoglobin Oxyhemoglobin Sodium Potassium Chloride Carbon Dioxide BUN Creatinine Glucose POC Glucose 131 H 157 H Calcium Iron TIBC Ferritin Total Bilirubin AST ALT Lactate Dehydrogenase Total Creatine Kinase Troponin T C-Reactive Protein Albumin Urine WBC (Auto) Urine Creatinine Urine Total Protein Complement C3 Coronavirus (PCR) Hepatitis C Antibody Crossmatch 05/12/21 05/13/21 05/13/21 23:30 00:12 04:20 WBC RBC Hgb Hct MCV MCHC RDW Lymph % (Auto) [place] % (Auto) Lymph # (Auto) [place] # (Auto) Seg Neutrophils % Seg Neuts % (Manual) Lymphocytes % (Manual) Monocytes % (Manual) Seg Neutrophils # Seg Neutrophils # Man Lymphocytes # (Manual) Monocytes # (Manual) PT APTT D-Dimer Heparin Anti-Xa Level 0.13 L ABG pH ABG pO2 ABG HCO3 ABG O2 Saturation ABG Base Excess ABG Hemoglobin Oxyhemoglobin Sodium Potassium Chloride 111.2 H Carbon Dioxide BUN 53 H Creatinine 1.9 H Glucose 121 H POC Glucose 115 H Calcium 8.3 L Iron TIBC Ferritin Total Bilirubin AST ALT Lactate Dehydrogenase Total Creatine Kinase Troponin T C-Reactive Protein Albumin Urine WBC (Auto) Urine Creatinine Urine Total Protein Complement C3 Coronavirus (PCR) Hepatitis C Antibody Crossmatch 05/13/21 05/13/21 05/13/21 04:20 11:15 11:29 WBC 13.1 H RBC 2.86 L Hgb 8.5 L Hct 26.9 L MCV MCHC RDW 15.7 H Lymph % (Auto) [place] % (Auto) Lymph # (Auto) [place] # (Auto) Seg Neutrophils % Seg Neuts % (Manual) Lymphocytes % (Manual) Monocytes % (Manual) Seg Neutrophils # Seg Neutrophils # Man Lymphocytes # (Manual) Monocytes # (Manual) PT APTT D-Dimer Heparin Anti-Xa Level ABG pH 7.456 H ABG pO2 106.0 H ABG HCO3 ABG O2 Saturation ABG Base Excess ABG Hemoglobin 7.1 L Oxyhemoglobin Sodium Potassium Chloride Carbon Dioxide BUN Creatinine Glucose POC Glucose 121 H Calcium Iron TIBC Ferritin Total Bilirubin AST ALT Lactate Dehydrogenase Total Creatine Kinase Troponin T C-Reactive Protein Albumin Urine WBC (Auto) Urine Creatinine Urine Total Protein Complement C3 Coronavirus (PCR) Hepatitis C Antibody Crossmatch 01/28/22 01/28/22 01/29/22 16:38 23:43 04:26 WBC 14.2 H RBC 3.11 L Hgb 9.4 L Hct 29.3 L MCV MCHC RDW 15.4 H Lymph % (Auto) [place] % (Auto) Lymph # (Auto) [place] # (Auto) Seg Neutrophils % Seg Neuts % (Manual) Lymphocytes % (Manual) Monocytes % (Manual) Seg Neutrophils # Seg Neutrophils # Man Lymphocytes # (Manual) Monocytes # (Manual) PT APTT D-Dimer Heparin Anti-Xa Level ABG pH ABG pO2 ABG HCO3 ABG O2 Saturation ABG Base Excess ABG Hemoglobin Oxyhemoglobin Sodium Potassium Chloride Carbon Dioxide BUN Creatinine Glucose POC Glucose 119 H 55 L Calcium Iron TIBC Ferritin Total Bilirubin AST ALT Lactate Dehydrogenase Total Creatine Kinase Troponin T C-Reactive Protein Albumin Urine WBC (Auto) Urine Creatinine Urine Total Protein Complement C3 Coronavirus (PCR) Hepatitis C Antibody Crossmatch 05/14/21 05/14/21 05/14/21 04:26 05:26 06:51 WBC RBC Hgb Hct MCV MCHC RDW Lymph % (Auto) [place] % (Auto) Lymph # (Auto) [place] # (Auto) Seg Neutrophils % Seg Neuts % (Manual) Lymphocytes % (Manual) Monocytes % (Manual) Seg Neutrophils # Seg Neutrophils # Man Lymphocytes # (Manual) Monocytes # (Manual) PT APTT D-Dimer Heparin Anti-Xa Level ABG pH ABG pO2 ABG HCO3 ABG O2 Saturation ABG Base Excess ABG Hemoglobin Oxyhemoglobin Sodium Potassium 3.4 L Chloride 107.6 H Carbon Dioxide BUN 42 H Creatinine 1.9 H Glucose POC Glucose 51 L 62 L Calcium Iron TIBC Ferritin Total Bilirubin AST ALT Lactate Dehydrogenase Total Creatine Kinase Troponin T C-Reactive Protein Albumin Urine WBC (Auto) Urine Creatinine Urine Total Protein Complement C3 Coronavirus (PCR) Hepatitis C Antibody Crossmatch 05/14/21 05/14/21 05/14/21 09:58 12:05 12:08 WBC RBC Hgb Hct MCV MCHC RDW Lymph % (Auto) [place] % (Auto) Lymph # (Auto) [place] # (Auto) Seg Neutrophils % Seg Neuts % (Manual) Lymphocytes % (Manual) Monocytes % (Manual) Seg Neutrophils # Seg Neutrophils # Man Lymphocytes # (Manual) Monocytes # (Manual) PT APTT D-Dimer Heparin Anti-Xa Level ABG pH ABG pO2 ABG HCO3 ABG O2 Saturation ABG Base Excess ABG Hemoglobin Oxyhemoglobin Sodium Potassium 3.4 L Chloride Carbon Dioxide BUN 36 H Creatinine 1.8 H Glucose 133 H POC Glucose 60 L 127 H Calcium Iron TIBC Ferritin Total Bilirubin AST ALT Lactate Dehydrogenase Total Creatine Kinase Troponin T C-Reactive Protein Albumin Urine WBC (Auto) Urine Creatinine Urine Total Protein Complement C3 Coronavirus (PCR) Hepatitis C Antibody Crossmatch 05/14/21 05/14/21 05/15/21 17:20 23:37 05:34 WBC RBC Hgb Hct MCV MCHC RDW Lymph % (Auto) [place] % (Auto) Lymph # (Auto) [place] # (Auto) Seg Neutrophils % Seg Neuts % (Manual) Lymphocytes % (Manual) Monocytes % (Manual) Seg Neutrophils # Seg Neutrophils # Man Lymphocytes # (Manual) Monocytes # (Manual) PT APTT D-Dimer Heparin Anti-Xa Level ABG pH ABG pO2 ABG HCO3 ABG O2 Saturation ABG Base Excess ABG Hemoglobin Oxyhemoglobin Sodium Potassium Chloride Carbon Dioxide BUN Creatinine Glucose POC Glucose 144 H 115 H 119 H Calcium Iron TIBC Ferritin Total Bilirubin AST ALT Lactate Dehydrogenase Total Creatine Kinase Troponin T C-Reactive Protein Albumin Urine WBC (Auto) Urine Creatinine Urine Total Protein Complement C3 Coronavirus (PCR) Hepatitis C Antibody Crossmatch 05/15/21 05/15/21 05/15/21 07:26 07:26 14:35 WBC 13.8 H RBC 3.32 L Hgb 10.0 L Hct 31.2 L MCV MCHC RDW 16.0 H Lymph % (Auto) [place] % (Auto) Lymph # (Auto) [place] # (Auto) Seg Neutrophils % Seg Neuts % (Manual) Lymphocytes % (Manual) Monocytes % (Manual) Seg Neutrophils # Seg Neutrophils # Man Lymphocytes # (Manual) Monocytes # (Manual) PT APTT D-Dimer Heparin Anti-Xa Level ABG pH ABG pO2 ABG HCO3 ABG O2 Saturation ABG Base Excess ABG Hemoglobin Oxyhemoglobin Sodium 149 H D Potassium 3.5 L Chloride 113.2 H Carbon Dioxide BUN 29 H Creatinine 1.8 H Glucose 113 H POC Glucose 143 H Calcium Iron TIBC Ferritin Total Bilirubin AST ALT Lactate Dehydrogenase Total Creatine Kinase Troponin T C-Reactive Protein Albumin Urine WBC (Auto) Urine Creatinine Urine Total Protein Complement C3 Coronavirus (PCR) Hepatitis C Antibody Crossmatch 05/16/21 05/16/21 05/16/21 06:12 08:43 10:05 WBC RBC Hgb Hct MCV MCHC RDW Lymph % (Auto) [place] % (Auto) Lymph # (Auto) [place] # (Auto) Seg Neutrophils % Seg Neuts % (Manual) Lymphocytes % (Manual) Monocytes % (Manual) Seg Neutrophils # Seg Neutrophils # Man Lymphocytes # (Manual) Monocytes # (Manual) PT APTT D-Dimer Heparin Anti-Xa Level 0.21 L ABG pH ABG pO2 240.8 H ABG HCO3 ABG O2 Saturation 99.4 H ABG Base Excess -2.6 L ABG Hemoglobin 10.7 L Oxyhemoglobin Sodium Potassium Chloride Carbon Dioxide BUN Creatinine Glucose POC Glucose 34 L Calcium Iron TIBC Ferritin Total Bilirubin AST ALT Lactate Dehydrogenase Total Creatine Kinase Troponin T C-Reactive Protein Albumin Urine WBC (Auto) Urine Creatinine Urine Total Protein Complement C3 Coronavirus (PCR) Hepatitis C Antibody Crossmatch 05/16/21 05/16/21 05/16/21 10:21 10:21 13:14 WBC 27.6 H RBC Hgb 11.4 L Hct MCV 99 H MCHC 30 L RDW 18.1 H Lymph % (Auto) [place] % (Auto) Lymph # (Auto) [place] # (Auto) Seg Neutrophils % Seg Neuts % (Manual) 83.0 H Lymphocytes % (Manual) 4.0 L Monocytes % (Manual) 9.0 H Seg Neutrophils # Seg Neutrophils # Man 22.9 H Lymphocytes # (Manual) 1.1 L Monocytes # (Manual) 2.5 H PT APTT D-Dimer Heparin Anti-Xa Level ABG pH ABG pO2 ABG HCO3 ABG O2 Saturation ABG Base Excess ABG Hemoglobin Oxyhemoglobin Sodium Potassium Chloride 108.8 H Carbon Dioxide 17 L BUN 26 H Creatinine 1.9 H Glucose 141 H POC Glucose Calcium Iron TIBC Ferritin Total Bilirubin AST ALT Lactate Dehydrogenase Total Creatine Kinase Troponin T 0.503 H* C-Reactive Protein Albumin 3.1 L Urine WBC (Auto) Urine Creatinine Urine Total Protein Complement C3 Coronavirus (PCR) Hepatitis C Antibody Crossmatch 05/16/21 05/17/21 05/17/21 18:40 00:02 04:52 WBC RBC Hgb 8.8 L Hct 28.5 L D MCV MCHC RDW Lymph % (Auto) [place] % (Auto) Lymph # (Auto) [place] # (Auto) Seg Neutrophils % Seg Neuts % (Manual) Lymphocytes % (Manual) Monocytes % (Manual) Seg Neutrophils # Seg Neutrophils # Man Lymphocytes # (Manual) Monocytes # (Manual) PT APTT D-Dimer Heparin Anti-Xa Level ABG pH ABG pO2 ABG HCO3 ABG O2 Saturation ABG Base Excess ABG Hemoglobin Oxyhemoglobin Sodium Potassium Chloride Carbon Dioxide BUN Creatinine Glucose POC Glucose 114 H Calcium Iron TIBC Ferritin Total Bilirubin AST ALT Lactate Dehydrogenase Total Creatine Kinase Troponin T 0.400 H* D C-Reactive Protein Albumin Urine WBC (Auto) Urine Creatinine Urine Total Protein Complement C3 Coronavirus (PCR) Hepatitis C Antibody Crossmatch 05/17/21 05/17/21 05/17/21 04:52 05:15 06:50 WBC RBC Hgb Hct MCV MCHC RDW Lymph % (Auto) [place] % (Auto) Lymph # (Auto) [place] # (Auto) Seg Neutrophils % Seg Neuts % (Manual) Lymphocytes % (Manual) Monocytes % (Manual) Seg Neutrophils # Seg Neutrophils # Man Lymphocytes # (Manual) Monocytes # (Manual) PT APTT D-Dimer Heparin Anti-Xa Level ABG pH ABG pO2 193.7 H ABG HCO3 27.7 H ABG O2 Saturation 99.2 H ABG Base Excess 3.4 H ABG Hemoglobin 9.2 L Oxyhemoglobin Sodium 146 H Potassium Chloride 110.3 H Carbon Dioxide BUN 33 H Creatinine 2.3 H Glucose 120 H POC Glucose 109 H Calcium Iron TIBC Ferritin Total Bilirubin AST ALT Lactate Dehydrogenase Total Creatine Kinase Troponin T C-Reactive Protein Albumin Urine WBC (Auto) Urine Creatinine Urine Total Protein Complement C3 Coronavirus (PCR) Hepatitis C Antibody Crossmatch 05/17/21 05/17/21 05/17/21 10:30 11:33 15:35 WBC RBC Hgb Hct MCV MCHC RDW Lymph % (Auto) [place] % (Auto) Lymph # (Auto) [place] # (Auto) Seg Neutrophils % Seg Neuts % (Manual) Lymphocytes % (Manual) Monocytes % (Manual) Seg Neutrophils # Seg Neutrophils # Man Lymphocytes # (Manual) Monocytes # (Manual) PT APTT D-Dimer Heparin Anti-Xa Level ABG pH 7.457 H ABG pO2 162.5 H 103.7 H ABG HCO3 27.7 H 27.5 H ABG O2 Saturation ABG Base Excess 3.6 H ABG Hemoglobin 10.1 L 11.5 L Oxyhemoglobin Sodium Potassium Chloride Carbon Dioxide BUN Creatinine Glucose POC Glucose 122 H Calcium Iron TIBC Ferritin Total Bilirubin AST ALT Lactate Dehydrogenase Total Creatine Kinase Troponin T C-Reactive Protein Albumin Urine WBC (Auto) Urine Creatinine Urine Total Protein Complement C3 Coronavirus (PCR) Hepatitis C Antibody Crossmatch 05/17/21 05/17/21 05/17/21 16:21 18:18 23:29 WBC RBC Hgb 9.6 L Hct 30.3 L MCV MCHC RDW Lymph % (Auto) [place] % (Auto) Lymph # (Auto) [place] # (Auto) Seg Neutrophils % Seg Neuts % (Manual) Lymphocytes % (Manual) Monocytes % (Manual) Seg Neutrophils # Seg Neutrophils # Man Lymphocytes # (Manual) Monocytes # (Manual) PT APTT D-Dimer Heparin Anti-Xa Level ABG pH ABG pO2 ABG HCO3 ABG O2 Saturation ABG Base Excess ABG Hemoglobin Oxyhemoglobin Sodium Potassium Chloride Carbon Dioxide BUN Creatinine Glucose POC Glucose 133 H 111 H Calcium Iron TIBC Ferritin Total Bilirubin AST ALT Lactate Dehydrogenase Total Creatine Kinase Troponin T C-Reactive Protein Albumin Urine WBC (Auto) Urine Creatinine Urine Total Protein Complement C3 Coronavirus (PCR) Hepatitis C Antibody Crossmatch 05/18/21 05/18/21 05/18/21 04:15 04:15 05:01 WBC 16.8 H RBC 3.03 L Hgb 8.9 L Hct 28.7 L MCV 95 H MCHC 31 L RDW 16.4 H Lymph % (Auto) [place] % (Auto) Lymph # (Auto) [place] # (Auto) Seg Neutrophils % Seg Neuts % (Manual) Lymphocytes % (Manual) Monocytes % (Manual) Seg Neutrophils # Seg Neutrophils # Man Lymphocytes # (Manual) Monocytes # (Manual) PT APTT D-Dimer Heparin Anti-Xa Level ABG pH ABG pO2 ABG HCO3 ABG O2 Saturation ABG Base Excess ABG Hemoglobin Oxyhemoglobin Sodium Potassium Chloride Carbon Dioxide BUN 40 H Creatinine 2.1 H Glucose 115 H POC Glucose 113 H Calcium Iron TIBC Ferritin Total Bilirubin AST ALT Lactate Dehydrogenase Total Creatine Kinase Troponin T C-Reactive Protein Albumin Urine WBC (Auto) Urine Creatinine Urine Total Protein Complement C3 Coronavirus (PCR) Hepatitis C Antibody Crossmatch 05/18/21 05/18/21 05/19/21 11:18 12:50 05:23 WBC 18.5 H RBC 3.31 L Hgb 9.9 L Hct 31.1 L MCV MCHC RDW 16.9 H Lymph % (Auto) [place] % (Auto) Lymph # (Auto) [place] # (Auto) Seg Neutrophils % Seg Neuts % (Manual) Lymphocytes % (Manual) Monocytes % (Manual) Seg Neutrophils # Seg Neutrophils # Man Lymphocytes # (Manual) Monocytes # (Manual) PT APTT D-Dimer Heparin Anti-Xa Level ABG pH ABG pO2 79.6 L ABG HCO3 28.0 H ABG O2 Saturation ABG Base Excess 3.3 H ABG Hemoglobin 6.2 L Oxyhemoglobin Sodium Potassium Chloride Carbon Dioxide BUN Creatinine Glucose POC Glucose 129 H Calcium Iron TIBC Ferritin Total Bilirubin AST ALT Lactate Dehydrogenase Total Creatine Kinase Troponin T C-Reactive Protein Albumin Urine WBC (Auto) Urine Creatinine Urine Total Protein Complement C3 Coronavirus (PCR) Hepatitis C Antibody Crossmatch 05/19/21 05/19/21 05/19/21 05:23 05:23 11:24 WBC RBC Hgb Hct MCV MCHC RDW Lymph % (Auto) [place] % (Auto) Lymph # (Auto) [place] # (Auto) Seg Neutrophils % Seg Neuts % (Manual) Lymphocytes % (Manual) Monocytes % (Manual) Seg Neutrophils # Seg Neutrophils # Man Lymphocytes # (Manual) Monocytes # (Manual) PT APTT D-Dimer Heparin Anti-Xa Level ABG pH ABG pO2 ABG HCO3 ABG O2 Saturation ABG Base Excess ABG Hemoglobin Oxyhemoglobin Sodium Potassium Chloride Carbon Dioxide BUN 35 H 34 H Creatinine 2.0 H 2.1 H Glucose POC Glucose 111 H Calcium Iron TIBC Ferritin Total Bilirubin AST ALT Lactate Dehydrogenase Total Creatine Kinase Troponin T C-Reactive Protein Albumin Urine WBC (Auto) Urine Creatinine Urine Total Protein Complement C3 Coronavirus (PCR) Hepatitis C Antibody Crossmatch 05/19/21 05/19/21 05/19/21 16:33 19:36 23:47 WBC RBC Hgb Hct MCV MCHC RDW Lymph % (Auto) [place] % (Auto) Lymph # (Auto) [place] # (Auto) Seg Neutrophils % Seg Neuts % (Manual) Lymphocytes % (Manual) Monocytes % (Manual) Seg Neutrophils # Seg Neutrophils # Man Lymphocytes # (Manual) Monocytes # (Manual) PT APTT 72.5 H* D-Dimer Heparin Anti-Xa Level ABG pH ABG pO2 ABG HCO3 ABG O2 Saturation ABG Base Excess ABG Hemoglobin Oxyhemoglobin Sodium Potassium Chloride Carbon Dioxide BUN Creatinine Glucose POC Glucose 131 H 122 H Calcium Iron TIBC Ferritin Total Bilirubin AST ALT Lactate Dehydrogenase Total Creatine Kinase Troponin T C-Reactive Protein Albumin Urine WBC (Auto) Urine Creatinine Urine Total Protein Complement C3 Coronavirus (PCR) Hepatitis C Antibody Crossmatch 05/20/21 05/20/21 05/20/21 05:14 05:14 06:12 WBC 19.7 H RBC 3.19 L Hgb 9.5 L Hct 29.9 L MCV MCHC RDW 17.3 H Lymph % (Auto) [place] % (Auto) Lymph # (Auto) [place] # (Auto) Seg Neutrophils % Seg Neuts % (Manual) Lymphocytes % (Manual) Monocytes % (Manual) Seg Neutrophils # Seg Neutrophils # Man Lymphocytes # (Manual) Monocytes # (Manual) PT APTT D-Dimer Heparin Anti-Xa Level ABG pH ABG pO2 ABG HCO3 ABG O2 Saturation ABG Base Excess ABG Hemoglobin Oxyhemoglobin Sodium Potassium Chloride Carbon Dioxide BUN 31 H Creatinine 2.1 H Glucose 130 H POC Glucose 120 H Calcium Iron TIBC Ferritin Total Bilirubin AST ALT Lactate Dehydrogenase Total Creatine Kinase Troponin T C-Reactive Protein Albumin Urine WBC (Auto) Urine Creatinine Urine Total Protein Complement C3 Coronavirus (PCR) Hepatitis C Antibody Crossmatch 05/20/21 05/20/21 05/20/21 11:10 18:12 23:55 WBC RBC Hgb Hct MCV MCHC RDW Lymph % (Auto) [place] % (Auto) Lymph # (Auto) [place] # (Auto) Seg Neutrophils % Seg Neuts % (Manual) Lymphocytes % (Manual) Monocytes % (Manual) Seg Neutrophils # Seg Neutrophils # Man Lymphocytes # (Manual) Monocytes # (Manual) PT APTT D-Dimer Heparin Anti-Xa Level ABG pH ABG pO2 ABG HCO3 ABG O2 Saturation ABG Base Excess ABG Hemoglobin Oxyhemoglobin Sodium Potassium Chloride Carbon Dioxide BUN Creatinine Glucose POC Glucose 152 H 137 H 146 H Calcium Iron TIBC Ferritin Total Bilirubin AST ALT Lactate Dehydrogenase Total Creatine Kinase Troponin T C-Reactive Protein Albumin Urine WBC (Auto) Urine Creatinine Urine Total Protein Complement C3 Coronavirus (PCR) Hepatitis C Antibody Crossmatch 05/21/21 05/21/21 05/21/21 03:12 03:12 05:53 WBC 26.2 H RBC 2.58 L Hgb 7.7 L Hct 24.2 L MCV MCHC RDW 17.8 H Lymph % (Auto) [place] % (Auto) Lymph # (Auto) [place] # (Auto) Seg Neutrophils % Seg Neuts % (Manual) Lymphocytes % (Manual) Monocytes % (Manual) Seg Neutrophils # Seg Neutrophils # Man Lymphocytes # (Manual) Monocytes # (Manual) PT APTT D-Dimer Heparin Anti-Xa Level ABG pH ABG pO2 ABG HCO3 ABG O2 Saturation ABG Base Excess ABG Hemoglobin Oxyhemoglobin Sodium 133 L Potassium 5.7 H D Chloride Carbon Dioxide 21 L BUN 49 H Creatinine 2.6 H Glucose 160 H POC Glucose 118 H Calcium Iron TIBC Ferritin Total Bilirubin AST ALT Lactate Dehydrogenase Total Creatine Kinase Troponin T C-Reactive Protein Albumin Urine WBC (Auto) Urine Creatinine Urine Total Protein Complement C3 Coronavirus (PCR) Hepatitis C Antibody Crossmatch 05/21/21 05/22/21 05/22/21 18:00 00:13 05:05 WBC RBC Hgb Hct MCV MCHC RDW Lymph % (Auto) [place] % (Auto) Lymph # (Auto) [place] # (Auto) Seg Neutrophils % Seg Neuts % (Manual) Lymphocytes % (Manual) Monocytes % (Manual) Seg Neutrophils # Seg Neutrophils # Man Lymphocytes # (Manual) Monocytes # (Manual) PT APTT D-Dimer Heparin Anti-Xa Level ABG pH 7.500 H ABG pO2 56.6 L ABG HCO3 ABG O2 Saturation ABG Base Excess ABG Hemoglobin 6.7 L Oxyhemoglobin 94.8 L Sodium 136 L Potassium 5.2 H Chloride Carbon Dioxide BUN 59 H Creatinine 2.6 H Glucose 138 H POC Glucose 109 H Calcium Iron TIBC Ferritin Total Bilirubin AST ALT Lactate Dehydrogenase Total Creatine Kinase Troponin T C-Reactive Protein Albumin Urine WBC (Auto) Urine Creatinine Urine Total Protein Complement C3 Coronavirus (PCR) Hepatitis C Antibody Crossmatch 05/22/21 05/22/21 05/22/21 06:07 11:49 16:33 WBC RBC Hgb Hct MCV MCHC RDW Lymph % (Auto) [place] % (Auto) Lymph # (Auto) [place] # (Auto) Seg Neutrophils % Seg Neuts % (Manual) Lymphocytes % (Manual) Monocytes % (Manual) Seg Neutrophils # Seg Neutrophils # Man Lymphocytes # (Manual) Monocytes # (Manual) PT APTT D-Dimer Heparin Anti-Xa Level ABG pH ABG pO2 ABG HCO3 ABG O2 Saturation ABG Base Excess ABG Hemoglobin Oxyhemoglobin Sodium Potassium Chloride Carbon Dioxide BUN Creatinine Glucose POC Glucose 110 H 117 H 119 H Calcium Iron TIBC Ferritin Total Bilirubin AST ALT Lactate Dehydrogenase Total Creatine Kinase Troponin T C-Reactive Protein Albumin Urine WBC (Auto) Urine Creatinine Urine Total Protein Complement C3 Coronavirus (PCR) Hepatitis C Antibody Crossmatch 05/23/21 05/23/21 05/23/21 04:48 04:48 07:12 WBC 21.1 H RBC 2.03 L Hgb 6.2 L Hct 19.4 L* MCV 96 H MCHC RDW 17.5 H Lymph % (Auto) [place] % (Auto) Lymph # (Auto) [place] # (Auto) Seg Neutrophils % Seg Neuts % (Manual) Lymphocytes % (Manual) Monocytes % (Manual) Seg Neutrophils # Seg Neutrophils # Man Lymphocytes # (Manual) Monocytes # (Manual) PT APTT D-Dimer Heparin Anti-Xa Level ABG pH ABG pO2 ABG HCO3 ABG O2 Saturation ABG Base Excess ABG Hemoglobin Oxyhemoglobin Sodium Potassium Chloride Carbon Dioxide BUN 62 H Creatinine 2.8 H Glucose 110 H POC Glucose Calcium Iron TIBC Ferritin Total Bilirubin AST ALT Lactate Dehydrogenase Total Creatine Kinase Troponin T C-Reactive Protein Albumin Urine WBC (Auto) Urine Creatinine Urine Total Protein Complement C3 Coronavirus (PCR) Hepatitis C Antibody Crossmatch See Detail 05/23/21 05/23/21 05/23/21 11:19 14:15 16:12 WBC RBC Hgb Hct MCV MCHC RDW Lymph % (Auto) [place] % (Auto) Lymph # (Auto) [place] # (Auto) Seg Neutrophils % Seg Neuts % (Manual) Lymphocytes % (Manual) Monocytes % (Manual) Seg Neutrophils # Seg Neutrophils # Man Lymphocytes # (Manual) Monocytes # (Manual) PT APTT D-Dimer Heparin Anti-Xa Level ABG pH ABG pO2 294.7 H ABG HCO3 ABG O2 Saturation 99.5 H ABG Base Excess ABG Hemoglobin 6.5 L Oxyhemoglobin Sodium Potassium Chloride Carbon Dioxide BUN Creatinine Glucose POC Glucose 127 H 120 H Calcium Iron TIBC Ferritin Total Bilirubin AST ALT Lactate Dehydrogenase Total Creatine Kinase Troponin T C-Reactive Protein Albumin Urine WBC (Auto) Urine Creatinine Urine Total Protein Complement C3 Coronavirus (PCR) Hepatitis C Antibody Crossmatch 05/23/21 05/23/21 05/23/21 16:30 16:30 Unknown WBC RBC Hgb Hct MCV MCHC RDW Lymph % (Auto) [place] % (Auto) Lymph # (Auto) [place] # (Auto) Seg Neutrophils % Seg Neuts % (Manual) Lymphocytes % (Manual) Monocytes % (Manual) Seg Neutrophils # Seg Neutrophils # Man Lymphocytes # (Manual) Monocytes # (Manual) PT APTT D-Dimer Heparin Anti-Xa Level ABG pH ABG pO2 ABG HCO3 ABG O2 Saturation ABG Base Excess ABG Hemoglobin Oxyhemoglobin Sodium Potassium Chloride Carbon Dioxide BUN Creatinine Glucose POC Glucose Calcium Iron 10 L TIBC 151 L Ferritin Total Bilirubin AST ALT Lactate Dehydrogenase 311 H Total Creatine Kinase Troponin T C-Reactive Protein Albumin Urine WBC (Auto) 12.0 H Urine Creatinine 100.1 H Urine Total Protein Complement C3 Coronavirus (PCR) Hepatitis C Antibody Crossmatch Chest x-ray: report reviewed, image reviewed Additional Studies: CHEST 1 VIEW 05/23/2021 3:28 PM INDICATION / CLINICAL INFORMATION: ETT placement. COMPARISON: 05/21/2021 FINDINGS: SUPPORT DEVICES: Nasogastric tube descends into the stomach. Tip of endotracheal tube is positioned approximately 7 cm above the chano. HEART / MEDIASTINUM: No significant abnormality. LUNGS / PLEURA: Parenchymal opacity in the right base appears unchanged. There has been mild improvement in the left lung base. No pneumothorax. ADDITIONAL FINDINGS: No significant additional findings. IMPRESSION: 1. Tip of endotracheal tube projects at the level the clavicles approximately 7 cm above the chano. 2. There is been interval improvement in airspace opacity in the left lung base. Allied health notes reviewed: nursing
[2021-05-23 19:06] LABS: Hematocrit 22.9 % (35.5-45.6); Hemoglobin 7.1 gm/dl (11.8-15.2); Mean Corpuscular HGB Conc 31 % (32-34); Mean Corpuscular Volume 96 fl (84-94); Platelet Count 321 K/mm3 (140-440); Red Cell Distribution Width 16.8 % (13.2-15.2)
[2021-05-23] MEDS: SODIUM CHLORIDE 0.45% 1000 ML 1,000 ML IV SCH (19:36)
[2021-05-23] MEDS ORDERED: FAMOTIDINE 20 MG/2 ML INJ IV SCH (22:00)
--- NOTE | 2021-05-24 04:45 | XRay Report ---
CHEST 1 VIEW INDICATION / CLINICAL INFORMATION: follow up respiratory failure. COMPARISON: Chest x-ray 05/23/2021 FINDINGS: SUPPORT DEVICES: Endotracheal tube above the chano. Esophagogastric tube mid fundus. HEART / MEDIASTINUM: No significant abnormality. LUNGS / PLEURA: Minimal subsegmental atelectasis remains medial left lung base. Additional discoid at electasis mid right lung. Lungs otherwise clear. No pneumothorax. ADDITIONAL FINDINGS: No significant additional findings. IMPRESSION: 1. Minimal subsegmental atelectasis medial left lung base. Additional minimal discoid atelectasis mid right lung. Lungs otherwise clear. Signer Name: Conor Rangel II, MD Signed: 05/24/2021 4:41 AM Workstation Name: [id number]
[2021-05-24 05:33] LABS: Hematocrit 20.5 % (35.5-45.6); Hemoglobin 6.4 gm/dl (11.8-15.2); Mean Corpuscular HGB Conc 31 % (32-34); Mean Corpuscular Volume 94 fl (84-94); Platelet Count 320 K/mm3 (140-440); Red Blood Count 2.19 M/mm3 (3.65-5.03)
[2021-05-24] MEDS: SODIUM CHLORIDE 0.45% 1000 ML 1,000 ML IV SCH ×2 (05:38→18:17)
[2021-05-24] MEDS: chlordiazePOXIDE 25 MG CAP PO SCH ×2 (05:42→21:48)
[2021-05-24] MEDS: hydrALAZINE 25 MG TAB PO SCH ×3 (05:43→21:45)
[2021-05-24 05:44] LABS: Albumin 2.5 g/dL (3.9-5); Calcium 8.6 mg/dL (8.4-10.2)
[2021-05-24] MEDS ORDERED: SODIUM CHLORIDE 0.9% 500 ML 500 ML IV SCH (07:45)
--- NOTE | 2021-05-24 08:57 | Gastroenterology Consultation ---
History of Present Illness - Reason for Consult Consult date: 05/24/21 anemia Requesting physician: LALA RODARTE - History of Present Illness The patient is a 56 yo male who presented with past medical history as below presenting with severe covid-19 pneumonia, respiratory failure, nstemi and dvt's. pt currently intubated in ICU. History gathered from chart review and care providers. He has been on anticoagulation for DVT's, had acute worsening of anemia over last 2 days. Anticoagulation has since been held. He has FMS in place with light brown stool. Has OG in place without signs of hematemesis. not on pressors. Past History Past Medical History: atrial fib, CAD, DVT, hypertension Past Surgical History: No surgical history Social history: smoking, other (cocaine) Family history: CAD Medications and Allergies Allergies Allergy/AdvReac Type Severity Reaction Status Date / Time No Known Allergies Allergy Verified 05/08/21 07:47 Home Medications Medication Instructions Recorded Confirmed Last Taken Type Cefpodoxime Proxetil 200 mg PO Q12H #10 tablet 09/11/20 05/19/21 Unknown Rx Famotidine [Pepcid] 20 mg PO BID #30 tablet 04/13/21 05/19/21 Unknown Rx Losartan [Cozaar] 100 mg PO QDAY #60 tablet 04/13/21 05/19/21 Unknown Rx Metoprolol Xl [Metoprolol 25 mg PO QDAY #30 tablet 04/13/21 05/19/21 Unknown Rx SUCCINATE ER TAB] NIFEdipine XL [Procardia Xl] 60 mg PO Q12HR #60 tablet 04/13/21 05/19/21 Unknown Rx hydrALAZINE [Apresoline TAB] 50 mg PO Q8HR #180 tablet 04/13/21 05/19/21 Unknown Rx Active Meds: Active Medications Acetaminophen (Acetaminophen 325 Mg Tab) 650 mg PO Q4H PRN PRN Reason: Pain MILD(1-3)/Fever >100.5/MARIA Last Admin: 05/23/21 04:53 Dose: 650 mg Acetaminophen (Acetaminophen 650 Mg Rect Supp) 650 mg SC Q4H PRN PRN Reason: Pain, Mild (1-3) Last Admin: 05/11/21 16:25 Dose: 650 mg Atorvastatin Calcium (Atorvastatin 40 Mg Tab) 40 mg FEEDTUBE QHS RISHI Last Admin: 05/23/21 21:11 Dose: 40 mg Chlordiazepoxide HCl (Chlordiazepoxide 25 Mg Cap) 75 mg PO Q8HR RISHI Last Admin: 05/24/21 05:42 Dose: 75 mg Dextrose (Dextrose 10% *Hypoglycemia) 0 ml IV PRN PRN PRN Reason: Hypoglycemia Last Admin: 05/14/21 06:55 Dose: 250 ml Fentanyl (Fentanyl 100 Mcg/2 Ml Inj) 50 mcg IV Q10MIN PRN PRN Reason: ANALGESIA Haloperidol Lactate (Haloperidol Lactate 5 Mg/1 Ml Inj) 5 mg IV Q6H PRN PRN Reason: Agitation Last Admin: 05/18/21 19:52 Dose: 5 mg Hydralazine HCl (Hydralazine 25 Mg Tab) 50 mg PO Q8HR RISHI Last Admin: 05/24/21 05:43 Dose: 50 mg Hydrophilic Ointment (Lip Therapy Vaseline) 1 applic TP Q2HR PRN PRN Reason: Dry Lips Sodium Chloride (Nacl 0.45% 1000 Ml) 1,000 mls @ 75 mls/hr IV DIRECT RISHI Last Admin: 05/24/21 05:38 Dose: 75 mls/hr Ertapenem 0.5 gm/ Sodium (Chloride) 50 mls @ 100 mls/hr IV Q24H RISHI Last Admin: 05/23/21 16:55 Dose: 100 mls/hr Fentanyl Citrate (Fentanyl Drip Premix) 2,000 mcg in 100 mls @ 4.082 mls/hr IV TITR RISHI; Protocol Sodium Chloride (Nacl 0.9% 500 Ml) 500 mls @ 0 mls/hr IV ONCE RISHI Stop: 05/24/21 23:59 Pantoprazole Sodium 80 mg/ (Sodium Chloride) 100 mls @ 10 mls/hr IV DIRECT RISHI Insulin Human Lispro (Insulin Lispro 100 Unit/Ml) 0 unit SUB-Q Q6HR PRN; Protocol PRN Reason: Hyperglycemia Last Admin: 05/12/21 16:49 Dose: 2 unit Labetalol HCl (Labetalol 20 Mg/4 Ml Inj) 10 mg IV Q4H PRN PRN Reason: sbp> 160. Metoprolol Tartrate (Metoprolol Tartrate 50 Mg Tab) 50 mg FEEDTUBE TID RISHI Last Admin: 05/23/21 19:37 Dose: Not Given Multi-Ingred Cream/Lotion/Oil/Oint (Mineral Oil/Petrolatum, White Ophth Oint 3.5 Gm) 1 applic OU Q4HR PRN PRN Reason: Dry Eye(s) Ondansetron HCl (Ondansetron 4 Mg/2 Ml Inj) 4 mg IV Q8H PRN PRN Reason: Nausea And Vomiting Last Admin: 05/04/21 21:51 Dose: 4 mg Quetiapine Fumarate (Quetiapine 100 Mg Tab) 250 mg PO BID [facility] [place] Last Admin: 05/23/21 21:11 Dose: Not Given Senna/Docusate Sodium (Sennosides/Docusate Sodium 8.6/50 Mg Tab) 1 tab FEEDTUBE BID [facility] [place] Last Admin: 05/23/21 21:11 Dose: 1 tab Sodium Chloride (Sodium Chloride 0.9% 10 Ml Flush Syringe) 10 ml IV BID [facility] [place] Last Admin: 05/23/21 21:11 Dose: 10 ml Sodium Chloride (Sodium Chloride 0.9% 10 Ml Flush Syringe) 10 ml IV PRN PRN PRN Reason: LINE FLUSH Last Admin: 05/06/21 13:59 Dose: 10 ml Sodium Chloride (Sodium Chloride 0.9% 50 Ml Ivpb) 10 ml IV PRN PRN PRN Reason: FLUSH Reviewed/updated patient's home and current medications Review of Systems - Review of Systems ROS unobtainable: due to endotracheal tube Exam - Constitutional Vital Signs: Temp Pulse Resp BP Pulse Ox 99.4 F 81 23 138/88 100 05/24/21 04:00 05/24/21 08:00 05/24/21 08:00 05/24/21 08:00 05/24/21 08:00 General appearance: other (intubated/sedated) - Respiratory Respiratory effort: other (on vent) - Cardiovascular Rhythm: regular Heart Sounds: Present: S1 & S2 - Gastrointestinal General gastrointestinal: Present: soft, non-distended Rectal Exam: stool brown - Labs CBC & Chem 7: 05/24/21 04:11 05/24/21 04:11 Lab Results: Laboratory Results - last 24 hr 05/23/21 05/23/21 05/23/21 07:12 11:19 14:15 WBC RBC Hgb Hct MCV MCH MCHC RDW Plt Count ABG pH 7.449 ABG pCO2 38.0 ABG pO2 294.7 H ABG HCO3 25.8 ABG O2 Saturation 99.5 H ABG O2 Content 9.7 ABG Base Excess 1.7 ABG Hemoglobin 6.5 L ABG Carboxyhemoglobin 1.6 ABG Methemoglobin 0.4 Oxyhemoglobin 97.5 FiO2 100 Sodium Potassium Chloride Carbon Dioxide Anion Gap BUN Creatinine Estimated GFR BUN/Creatinine Ratio Glucose POC Glucose 127 H Calcium Phosphorus Magnesium Iron TIBC Total Bilirubin AST ALT Alkaline Phosphatase Lactate Dehydrogenase Total Protein Albumin Albumin/Globulin Ratio Urine Color Urine Turbidity Urine pH Ur Specific [place] Urine Protein Urine Glucose (UA) Urine Ketones Urine Blood Urine Nitrite Urine Bilirubin Urine Urobilinogen Ur Leukocyte Esterase Urine WBC (Auto) Urine RBC (Auto) U Epithel Cells (Auto) Urine Bacteria (Auto) Amorphous Crystals Urine Mucus Urine Creatinine Urine Sodium Fraction Sodium Excret Blood Type O POSITIVE Antibody Screen Negative Crossmatch See Detail 05/23/21 05/23/21 05/23/21 16:12 16:30 16:30 WBC RBC Hgb Hct MCV MCH MCHC RDW Plt Count ABG pH ABG pCO2 ABG pO2 ABG HCO3 ABG O2 Saturation ABG O2 Content ABG Base Excess ABG Hemoglobin ABG Carboxyhemoglobin ABG Methemoglobin Oxyhemoglobin FiO2 Sodium Potassium Chloride Carbon Dioxide Anion Gap BUN Creatinine Estimated GFR BUN/Creatinine Ratio Glucose POC Glucose 120 H Calcium Phosphorus Magnesium Iron TIBC Total Bilirubin AST ALT Alkaline Phosphatase Lactate Dehydrogenase Total Protein Albumin Albumin/Globulin Ratio Urine Color Yellow Urine Turbidity Turbid Urine pH 5.0 Ur Specific [place] 1.014 Urine Protein 100 mg/dl Urine Glucose (UA) Neg Urine Ketones Neg Urine Blood Mod Urine Nitrite Neg Urine Bilirubin Neg Urine Urobilinogen < 2.0 Ur Leukocyte Esterase Tr Urine WBC (Auto) 12.0 H Urine RBC (Auto) 3.0 U Epithel Cells (Auto) 1.0 Urine Bacteria (Auto) 1+ Amorphous Crystals 2+ Urine Mucus Few Urine Creatinine 100.1 H Urine Sodium 25 Fraction Sodium Excret 0.3 Blood Type Antibody Screen Crossmatch 05/23/21 05/23/21 05/24/21 18:54 Unknown 00:11 WBC 21.7 H RBC 2.40 L Hgb 7.1 L Hct 22.9 L MCV 96 H MCH 30 MCHC 31 L RDW 16.8 H Plt Count 321 ABG pH ABG pCO2 ABG pO2 ABG HCO3 ABG O2 Saturation ABG O2 Content ABG Base Excess ABG Hemoglobin ABG Carboxyhemoglobin ABG Methemoglobin Oxyhemoglobin FiO2 Sodium Potassium Chloride Carbon Dioxide Anion Gap BUN Creatinine Estimated GFR BUN/Creatinine Ratio Glucose POC Glucose 110 H Calcium Phosphorus Magnesium Iron 10 L TIBC 151 L Total Bilirubin AST ALT Alkaline Phosphatase Lactate Dehydrogenase 311 H Total Protein Albumin Albumin/Globulin Ratio Urine Color Urine Turbidity Urine pH Ur Specific [place] Urine Protein Urine Glucose (UA) Urine Ketones Urine Blood Urine Nitrite Urine Bilirubin Urine Urobilinogen Ur Leukocyte Esterase Urine WBC (Auto) Urine RBC (Auto) U Epithel Cells (Auto) Urine Bacteria (Auto) Amorphous Crystals Urine Mucus Urine Creatinine Urine Sodium Fraction Sodium Excret Blood Type Antibody Screen Crossmatch 05/24/21 05/24/21 05/24/21 04:11 04:11 05:10 WBC 16.7 H RBC 2.19 L Hgb 6.4 L Hct 20.5 L MCV 94 MCH 29 MCHC 31 L RDW 17.0 H Plt Count 320 ABG pH ABG pCO2 ABG pO2 ABG HCO3 ABG O2 Saturation ABG O2 Content ABG Base Excess ABG Hemoglobin ABG Carboxyhemoglobin ABG Methemoglobin Oxyhemoglobin FiO2 Sodium 144 Potassium 4.2 Chloride 106.3 Carbon Dioxide 23 Anion Gap 19 BUN 78 H Creatinine 2.8 H Estimated GFR 23 BUN/Creatinine Ratio 28 Glucose 119 H POC Glucose 108 H Calcium 8.6 Phosphorus 5.30 H Magnesium 2.60 H Iron TIBC Total Bilirubin 0.50 AST 152 H ALT 125 H Alkaline Phosphatase 72 Lactate Dehydrogenase Total Protein 6.6 Albumin 2.5 L Albumin/Globulin Ratio 0.6 Urine Color Urine Turbidity Urine pH Ur Specific [place] Urine Protein Urine Glucose (UA) Urine Ketones Urine Blood Urine Nitrite Urine Bilirubin Urine Urobilinogen Ur Leukocyte Esterase Urine WBC (Auto) Urine RBC (Auto) U Epithel Cells (Auto) Urine Bacteria (Auto) Amorphous Crystals Urine Mucus Urine Creatinine Urine Sodium Fraction Sodium Excret Blood Type Antibody Screen Crossmatch Assessment and Plan 1. Acute on chronic anemia - noted heme positive stool, but has light brown stool in FMS so unlikely that sudden worsening of anemia is solely attributed to gi source without overt bleeding. 2. DVT - anticoagulation has been held, vascular following for possible IVC filter 3. COVID-19 with respiratory failure -discussed with ICU DEVI, recommend IV PPI drip for time being, and will manage conservatively from gi stand point. hold off one endoscopy unless signs of overt bleeding. will follow.
--- NOTE | 2021-05-24 09:09 | Progress Note ---
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 He is also currently nonoliguric. He is hypernatremic as well. Continue half-normal saline.. * His urine shows 2+ dipstick protein and 3 RBCs per high-power field. Fractional excretion of sodium is 0.3%. Increase IV fluid. Suspect possible volume depletion. * Hyperkalemia has been corrected. Continue to hold diuretics. * Renal ultrasound reviewed - will need follow up CT once stable * Continue antiHTN medications * Cardiology, ICU input noted * Dose medications for renal function * Avoid potential nephrotoxins * Strict I/O Subjective Date of service: 05/24/21 Principal diagnosis: AHRF; COVID-19 infection; NSTEMI; YE; HFrEF (35-40%); Polysubstance abuse Interval history: Overnight events noted. Patient is now intubated. Currently on 50% FiO2. Oxygen saturation is 100%. Half-normal saline infusing. Merino catheter in place. Objective - Vital Signs Vital signs: Vital Signs - 12hr 05/23/21 05/23/21 05/23/21 21:15 21:30 21:45 Temperature Pulse Rate 83 82 82 Pulse Rate [ From Monitor] Respiratory 25 H 23 25 H Rate Blood Pressure 101/69 103/71 101/74 O2 Sat by Pulse 100 100 100 Oximetry 05/23/21 05/23/21 05/23/21 22:00 22:15 22:30 Temperature Pulse Rate 81 80 82 Pulse Rate [ From Monitor] Respiratory 21 22 Rate Blood Pressure 108/73 130/94 128/88 O2 Sat by Pulse 100 100 100 Oximetry 05/23/21 05/23/21 05/23/21 22:45 23:00 23:15 Temperature Pulse Rate 84 83 82 Pulse Rate [ From Monitor] Respiratory 31 H 26 H 23 Rate Blood Pressure 117/82 131/91 121/89 O2 Sat by Pulse 100 100 100 Oximetry 05/23/21 05/23/21 05/24/21 23:30 23:45 00:00 Temperature 99.8 F H Pulse Rate 83 83 84 Pulse Rate [ 84 From Monitor] Respiratory 21 18 24 Rate Blood Pressure 130/96 137/96 141/97 O2 Sat by Pulse 100 100 100 Oximetry 05/24/21 05/24/21 05/24/21 00:01 00:04 00:15 Temperature Pulse Rate 84 84 84 Pulse Rate [ From Monitor] Respiratory 23 22 Rate Blood Pressure 141/97 141/97 137/91 O2 Sat by Pulse 100 100 100 Oximetry 05/24/21 05/24/21 05/24/21 00:30 00:45 01:00 Temperature Pulse Rate 84 84 83 Pulse Rate [ From Monitor] Respiratory 23 20 22 Rate Blood Pressure 130/90 133/90 132/91 O2 Sat by Pulse 100 100 100 Oximetry 05/24/21 05/24/21 05/24/21 01:15 01:30 01:45 Temperature Pulse Rate 83 83 83 Pulse Rate [ From Monitor] Respiratory 19 19 21 Rate Blood Pressure 137/91 127/89 135/90 O2 Sat by Pulse 100 100 100 Oximetry 05/24/21 05/24/21 05/24/21 02:00 02:15 02:30 Temperature Pulse Rate 84 83 83 Pulse Rate [ From Monitor] Respiratory 25 H 20 24 Rate Blood Pressure 131/93 129/95 134/91 O2 Sat by Pulse 100 100 100 Oximetry 05/24/21 05/24/21 05/24/21 02:45 03:00 03:15 Temperature Pulse Rate 83 83 83 Pulse Rate [ From Monitor] Respiratory 23 22 19 Rate Blood Pressure 133/92 135/91 132/92 O2 Sat by Pulse 100 100 100 Oximetry 05/24/21 05/24/21 05/24/21 03:30 03:45 04:00 Temperature 99.4 F Pulse Rate 82 84 82 Pulse Rate [ From Monitor] Respiratory 21 21 22 Rate Blood Pressure 131/93 137/88 129/85 O2 Sat by Pulse 100 100 100 Oximetry 05/24/21 05/24/21 05/24/21 04:10 04:15 04:30 Temperature Pulse Rate 82 82 83 Pulse Rate [ From Monitor] Respiratory 21 20 Rate Blood Pressure 129/85 134/87 135/89 O2 Sat by Pulse 100 100 100 Oximetry 05/24/21 05/24/21 05/24/21 04:45 05:00 05:15 Temperature Pulse Rate 83 83 78 Pulse Rate [ From Monitor] Respiratory 23 24 21 Rate Blood Pressure 139/88 145/95 O2 Sat by Pulse 100 100 100 Oximetry 05/24/21 05/24/21 05/24/21 05:30 05:43 05:45 Temperature Pulse Rate 84 81 81 Pulse Rate [ From Monitor] Respiratory 16 21 Rate Blood Pressure 131/88 131/88 122/85 O2 Sat by Pulse 100 100 Oximetry 05/24/21 05/24/21 05/24/21 06:00 06:15 06:30 Temperature Pulse Rate 81 81 81 Pulse Rate [ From Monitor] Respiratory 21 21 22 Rate Blood Pressure 126/86 125/86 O2 Sat by Pulse 100 100 100 Oximetry 05/24/21 05/24/21 05/24/21 06:45 07:00 07:15 Temperature Pulse Rate 81 81 79 Pulse Rate [ From Monitor] Respiratory 23 23 19 Rate Blood Pressure 129/86 138/93 129/87 O2 Sat by Pulse 100 100 100 Oximetry 05/24/21 05/24/21 05/24/21 07:30 07:45 08:00 Temperature Pulse Rate 80 78 81 Pulse Rate [ From Monitor] Respiratory 23 21 23 Rate Blood Pressure 135/89 129/86 138/88 O2 Sat by Pulse 100 100 100 Oximetry - General Appearance General appearance: well-developed, intubated EENT: PERRL, mucous membranes moist Neck: no JVD, no thyromegaly, no carotid bruit, supple Respiratory: Present: Ronchi (Few scattered rhonchi) Cardiology: regular, normal heart rate, S1S2, no murmurs Gastrointestinal: normal, normoactive bowel sounds Integumentary: no rash, other (No edema) - Lab 05/24/21 04:11 05/24/21 04:11 Most recent lab results ABG pH 7.449 pH Units (7.350-7.450) 05/23/21 14:15 ABG pCO2 38.0 mm Hg 05/23/21 14:15 ABG pO2 294.7 mm Hg (80.0-90.0) H 05/23/21 14:15 ABG HCO3 25.8 mmol/L (20.0-26.0) 05/23/21 14:15 ABG O2 Saturation 99.5 % (95.0-99.0) H 05/23/21 14:15 Calcium 8.6 mg/dL (8.4-10.2) 05/24/21 04:11 Phosphorus 5.30 mg/dL (2.5-4.5) H 05/24/21 04:11 Magnesium 2.60 mg/dL (1.7-2.3) H 05/24/21 04:11 Urine Creatinine 100.1 mg/dL (0.1-20.0) H 05/23/21 16:30 Urine Sodium 25 mmol/L 05/23/21 16:30 Urine Total Protein 42 mg/dL (5-11.8) H 05/10/21 11:03 Medications & Allergies - Medications Allergies/Adverse Reactions: Allergies No Known Allergies Allergy (Verified 05/08/21 07:47) Home Medications: Home Medications Medication Instructions Recorded Confirmed Last Taken Type Cefpodoxime Proxetil 200 mg PO Q12H #10 tablet 09/11/20 05/19/21 Unknown Rx Famotidine [Pepcid] 20 mg PO BID #30 tablet 04/13/21 05/19/21 Unknown Rx Losartan [Cozaar] 100 mg PO QDAY #60 tablet 04/13/21 05/19/21 Unknown Rx Metoprolol Xl [Metoprolol 25 mg PO QDAY #30 tablet 04/13/21 05/19/21 Unknown Rx SUCCINATE ER TAB] NIFEdipine XL [Procardia Xl] 60 mg PO Q12HR #60 tablet 04/13/21 05/19/21 Unknown Rx hydrALAZINE [Apresoline TAB] 50 mg PO Q8HR #180 tablet 04/13/21 05/19/21 Unknown Rx Active Medications: Generic Name Dose Route Start Last Admin Trade Name Freq PRN Reason Stop Dose Admin Acetaminophen 650 mg 05/04/21 12:34 05/23/21 04:53 Acetaminophen 325 Mg Tab PO 650 mg Q4H PRN Administration Pain MILD(1-3)/Fever >100.5/MARIA Acetaminophen 650 mg 05/07/21 16:00 05/11/21 16:25 Acetaminophen 650 Mg Rect Supp [place] 650 mg Q4H PRN Administration Pain, Mild (1-3) Atorvastatin Calcium 40 mg 05/09/21 22:00 05/23/21 21:11 Atorvastatin 40 Mg Tab FEEDTUBE 40 mg QHS RISHI Administration Chlordiazepoxide HCl 75 mg 05/21/21 21:00 05/24/21 05:42 Chlordiazepoxide 25 Mg Cap PO 75 mg Q8HR RISHI Administration Dextrose 0 ml 05/09/21 10:49 05/14/21 06:55 Dextrose 10% *Hypoglycemia IV 250 ml PRN PRN Administration Hypoglycemia Fentanyl 50 mcg 05/23/21 15:00 Fentanyl 100 Mcg/2 Ml Inj IV Q10MIN PRN ANALGESIA Haloperidol Lactate 5 mg 05/09/21 18:32 05/18/21 19:52 Haloperidol Lactate 5 Mg/1 Ml Inj IV 5 mg Q6H PRN Administration Agitation Hydralazine HCl 50 mg 05/04/21 14:00 05/24/21 05:43 Hydralazine 25 Mg Tab PO 50 mg Q8HR RISHI Administration Hydrophilic Ointment 1 applic 05/05/21 15:21 Lip Therapy Vaseline TP Q2HR PRN Dry Lips Sodium Chloride 1,000 mls @ 75 mls/hr 05/23/21 11:00 05/24/21 05:38 Nacl 0.45% 1000 Ml IV 75 mls/hr DIRECT RISHI Administration Ertapenem 0.5 gm/ Sodium 50 mls @ 100 mls/hr 05/23/21 16:00 05/23/21 16:55 Chloride IV 100 mls/hr Q24H RISHI Administration Fentanyl Citrate 2,000 mcg in 100 mls @ 4.082 mls/hr 05/23/21 15:00 Fentanyl Drip Premix IV TITR RISHI Protocol 1 MCG/KG/HR Sodium Chloride 500 mls @ 0 mls/hr 05/24/21 07:45 Nacl 0.9% 500 Ml IV 05/24/21 23:59 ONCE RISHI As Directed Pantoprazole Sodium 80 mg/ 100 mls @ 10 mls/hr 05/24/21 09:00 Sodium Chloride IV DIRECT RISHI 8 MG/HR Insulin Human Lispro 0 unit 05/10/21 09:40 05/12/21 16:49 Insulin Lispro 100 Unit/Ml SUB-Q 2 unit Q6HR PRN Administration Hyperglycemia Protocol Labetalol HCl 10 mg 05/15/21 10:24 Labetalol 20 Mg/4 Ml Inj IV Q4H PRN sbp> 160. Metoprolol Tartrate 50 mg 05/10/21 14:00 05/23/21 19:37 Metoprolol Tartrate 50 Mg Tab FEEDTUBE Not Given TID RISHI Multi-Ingred Cream/Lotion/Oil/Oint 1 applic 05/05/21 15:21 Mineral Oil/Petrolatum, White Ophth Oint 3.5 Gm OU Q4HR PRN Dry Eye(s) Ondansetron HCl 4 mg 05/04/21 12:34 05/04/21 21:51 Ondansetron 4 Mg/2 Ml Inj IV 4 mg Q8H PRN Administration Nausea And Vomiting Quetiapine Fumarate 250 mg 05/22/21 15:30 05/23/21 21:11 Quetiapine 100 Mg Tab PO Not Given BID RISHI Senna/Docusate Sodium 1 tab 05/05/21 22:00 05/23/21 21:11 Sennosides/Docusate Sodium 8.6/50 Mg Tab FEEDTUBE 1 tab BID RISHI Administration Sodium Chloride 10 ml 05/04/21 22:00 05/23/21 21:11 Sodium Chloride 0.9% 10 Ml Flush Syringe IV 10 ml BID RISHI Administration Sodium Chloride 10 ml 05/04/21 12:34 05/06/21 13:59 Sodium Chloride 0.9% 10 Ml Flush Syringe IV 10 ml PRN PRN Administration LINE FLUSH Sodium Chloride 10 ml 05/09/21 09:46 Sodium Chloride 0.9% 50 Ml Ivpb IV PRN PRN FLUSH
--- NOTE | 2021-05-24 09:27 | Event Note ---
Date: 05/24/21 Repeat venous duplex is negative for a DVT. There is no need for the placement of an IVC Filter. Recommend SCDs and subcutaneous Heparin 5000 units SQ BID (if tolerated) for DVT prophylaxis.
[2021-05-24] MEDS: METOPROLOL TARTRATE 50 MG TAB FEEDTUBE SCH (09:50)
[2021-05-24] MEDS: QUEtiapine 100 MG TAB PO SCH ×2 (09:50→21:46)
[2021-05-24] MEDS: SENNOSIDES/DOCUSATE SODIUM 8.6/50 MG TAB FEEDTUBE SCH ×2 (10:17→21:45)
[2021-05-24 10:37] LABS: ABG Base Excess 1.2 mmol/L (-2.0-3.0); ABG HCO3 25.6 mmol/L (20.0-26.0); ABG Methemoglobin 0.5 % (0.0-1.5); ABG Oxygen Saturation 98.8 % (95.0-99.0); ABG PH 7.435 pH Units (7.350-7.450); ABG PO2 141.9 mm Hg (80.0-90.0)
[2021-05-24] MEDS: PANTOPRAZOLE 80 MG in SODIUM CHLORIDE 0.9% 100 ML IV SCH ×2 (11:02→19:13)
--- NOTE | 2021-05-24 12:54 | Progress Note ---
<DANIELVALENTIN H. - Last Filed: 05/24/21 14:25> Assessment and Plan Assessment and plan: This is a 56-year-old male with nicotine and cocaine abuse, atrial fibrillation, hypertension and chronic medication noncompliance complicated by homelessness admitted with acute hypoxic respiratory failure, COVID-19 pneumonia, green saminitis, NSTEMI, hypertensive emergency and acute kidney injury A/P Neuro: Metabolic encephalopathy, polysubstance abuse (but amphetamine and tobacco) -Sedated with fentanyl drip -Goal RASS 0 to -1 -On CIWA protocol -Librium and Seroquel -Need to start taper -Maintain sleep-wake cycle -Monitor QTC -Avoid delirium -UDS positive for amphetamines -We will need cessation counseling when appropriate Cardio: Heart failure reduced EF, cardiomyopathy, NSTEMI, paroxysmal atrial fibrillation, S/p hypertensive emergency, h/o HTN -Continue beta-sylvia, aspirin, statin, hydral -decrease as needed -Cardiology consulted, appreciate recommendations -Echo 05/04/2021-EF 35 to 40%. Moderate concentric LVH. Moderate global hypokinesis of left ventricle. Mild mitral regurgitation. Mild pulmonary hypertension. Echocardiogram reviewed (08/27/2020): LVEF is 50 to 55%. Mild to moderate concentric LVF. Severe diastolic dysfunction is present (restrictive filling). Right ventricle is mildly hypokinetic. RVSP is 48 mmHg. No valvular abnormalities. -S/p heparin drip for 24 hours -S/p Cardizem drip for atrial fibrillation -Blood pressure monitoring per protocol Respiratory: Acute hypoxic respiratory failure -[facility] consulted, appreciate recommendations -Intubated on 05/05 in the ED and extubated 05/13, Re-intubated on 05/16 and Extubated on 05/18 -Reintubated 05/23 with 8.0 OETT at 22 cm at the lips -s/p bipap -A.m. vent settings: Assist control tidal volume 450, rate 16, PEEP 8, FiO2 50% -AM ABG noted -wean FiO2 -VAP bundle -Continues SPO2 monitoring GI: ? GIB, Transaminitis, h/o hepatitis C -GI consulted, appreciate recommendations -IV Protonix drip -24-hour -650 -BR: Senokot -Renal ultrasound showed incidental finding of cholelithiasis -Continue supportive management -Trend LFTs : Acute kidney injury likely secondary to vasomotor nephropathy -Nephrology consulted, appreciate recommendations -IVF per nephrology -Avoid nephrotoxic medications -Renally dose medication -Strict intake and output -FeNa indicates prerenal -Renal ultrasound completed: 1.7 hyper echoic mass within the left upper pole -Monitor follow-up with CT once stable ID: Severe COVID-19 pneumonia, Enterobacter aerogenes PNA, s/p Enterococcus faecalis UTI, -Infectious disease consulted, appreciate recommendations -COVID-19 PCR positive -s/p droplet/precautions fro 21 days -Not a candidate for remdesivir given acute kidney injury -Dexamethasone for 10 days -Anticoagulation per hospital protocol -Trend COVID-19 from 2 markers (ferritin, D-dimer, CRP, LDH) -05/09 urine culture with Enterococcus faecalis -05/16 tracheal aspirate with Enterobacter aerogenes -Due to persistent fever, will switch cefepime to IV ertapenem renally adjusted -GC negative Heme: Anemia, Acute DVT (resolved) -Bilateral lower extremity Doppler ultrasound shows acute DVT -heparin gtt converted to DOAC but now d/c -vascular surgery consulted for possible IVC filter placement, appreciate recommendations -repeat doppler shows no DVT -recommends sub heparin TID for prophylaxis if tolerated -Pulmonary perfusion study showed low probability of pulmonary embolism -S/p 1 unit PRBC -Trend CBC -Transfuse for hemoglobin less than 7 -2/8 H/H 6.6/20.5 -2 units PRBC ordered Endo: NAD -Accu-Cheks every 6 -SSI -Avoid hypoglycemia The high probability of a clinically significant, sudden or life threatening deterioration of the [cardio/resp] system(s) required my full and direct attention, intervention and personal management. The aggregate critical care time was [60] minutes. This time is in addition to time spent performing reported procedures but includes the following: [x] Data Review and interpretation [x] Patient assessment and monitoring of vital signs [x] Documentation [x] Medication orders and management Disposition Plan: icu Total Time Spent with Patient (Minutes): 60 History Interval history: This is a 56-year-old male with a nicotine abuse, A. fib, hypertension, and chronic medication noncompliance and homelessness who presented to emergency department on 05/04 with complaints of dyspnea on exertion for the past month worsening over the past 3 days, intermittent left-sided chest tightness with activity, and persistent cough without fever. Work-up in the emergency department revealed anemia, hyponatremia, elevated BUN/creatinine and transaminitis. Patient was admitted to the hospitalist service with acute kidney injury and accelerated hypertension. Hospital course to date 05/04/2021. Cardiology was considering patient for [employer]. However, patient with elevated creatinine therefore will hold off on cath evaluation. Nephrology consultation for acute kidney injury. Etiology likely secondary to vasomotor nephropathy/dehydration. We will start IV fluid hydration. Check renal ultrasound to rule out obstructive uropathy. We will resume home medications for the accelerated hypertension 05/05/2021. Echocardiogram reveals EF 35-40% with moderate concentric left ventricular hypertrophy. Moderate global hypokinesis of left ventricle. Mild mitral regurgitation. Mild pulmonary hypertension. Troponins are believed to be elevated in the setting of acute kidney injury. No beta-blockers due to cocaine use continue heparin and nitro drip. Continue CIWA protocol. Await urine studies 05/06/2021. Patient decompensated yesterday with worsening respiratory failure and difficulty to protect airway. Patient was breathing sonorously, and hypoxic. Patient was intubated and currently is on mechanical ventilation. Patient with AC mode ventilation rate of 20, tidal volume 450, FiO2 40% and PEEP of 6. COVID PCR testing on 05/05/2021 was found to be positive. Echocardiogram completed on this admission shows worsening EF from August 2020. Echocardiogram now reveals moderate concentric left ventricular hypertrophy with moderate global hypokinesis and EF of 35-40%. Mild pulmonary hypertension. 05/08: Continue current management, renal stable, LFTs stable and if improved will start on statin therapy. 05/09: Patient is febrile, will panculture, PSV today. CRP pending. Mucoid discharge noted from meatus which was sent for culture. Hypernatremia persists, free water flushes increased 05/10: PSV trial per [facility], T-max 102.3, given mildly elevated procalcitonin started on ceftriaxone 2 g every 24 for 2 days per ID. Overnight patient had atrial fibrillation which was treated with Cardizem drip and converted to sinus rhythm. Metoprolol p.o. increased to 3 times daily. 05/11: Patient still running fevers and if still febrile tomorrow will escalate to cefepime per ID as he is currently on ceftriaxone, [facility] attempted PSV but patient became agitated and was switched back to pressure control. Lower extremity ultrasound shows acute DVT and started on heparin drip. Started on scheduled Librium. Patient remains with hypernatremia and elevated creatinine and on IV fluids. Free water flushes adjusted. Started on vancomycin today 05/12: Patient placed on pressure support trial without fentanyl, hypernatremia improving, hyperkalemia noted. Slight improvement to renal function. 05/13: Patient was extubated today, ID change antibiotics to Zosyn for Enterococcus, was started tapering Librium in the morning, renal function slightly improved. Possible transfer to floor tomorrow. ST evaluation for swallow ordered. 05/14: Patient became hypoglycemic overnight and started on dextrose IV fluids. Accu-Chek fingersticks have been low but on a.m. BMP patient blood glucose is 100. Other BMP pending. Feeding tube replaced due to need for enteral access and patient being severely confused. Renal functions remains the same. Upon confirmation will restart tube feedings, p.o. medications and free water flushes. 05/15: Remains confused/somnolent on my encounter. Librium taper in 24hrs per PCCM recs. Remains hypertensive. Added amlodipine 10 mg NG and labetalol prn. ST eval today but doubt he will participate. Potassium replaced. Renal function improving overall, however, hypernatremic. Inc TF FWF to 250 cc q4hr. 05/16: Respiratory distress this AM, hypoxic in 60's not protecting airway. Required intubation, patient now ICU patient. Reduce fluid to FWF only, IVF d/c off jun. CXR ordered demonstrates pulmonary edema. Lasix 40 mg IV bid ordered. Troponin elevated, continue heparin gtt. Would recommend decreasing sedating medications at this point, agree with librium taper. 05/17: Patient remains on the vent and sedated, RASS -3. Plan for possible sedation vacation today. D/w [facility] plan to wean for possible extubation on the vent. 22: Tolerated 4hrs of sedation vacation yesterday, on low dose fentanyl this am. Patient is tolerating PST this am. Plan to wean off sedation and wean vent setting for possible extubation today. 05/19: s/p extubation now stable on 3L NC. Lethargic this am, will decreased Seroquel. Speech consult for swallow eval, continue enteral nutrition via NGT for now. Hypertensive throughout the night, Norvac added. Remains on heparin gtt for DVT, might need to transition to PO AC, will d/w CCM. Patient is stable for transfer to [facility] 05/20: Continue sepsis work up considering fever, aspiration precautions. Discussed with nursing staff will hold am seroquel. Continue tube feed. RENAL Function remains relatively stable, possible has peaked. 05/21: Patient seen and examined, resting but still with mild increase wob, CXR concerning with right lobar infiltrate, continue antibiotics, will give kayxalate in addition due to hyperkalemia, Will discuss with ID due to rising luekocytosis possible worsening sepsis. 05/22: Patient remains on BIPAP, still sedated appearing, cxr concerning for possible aspiration, unfortunately still worsening renal status. Will continue abx and continue collaboration with pulmonary team to ensure no over sedation. Continue abx, will add kayaxlate 05/23: Patient noted to have severe anemia today, will initiate GI work up and also Hemolysis work up. Will discuss with Vascular about possible IVC filter placement. Continue BIPAP, goal is to see if we can avert re-intubation. Transfuse 1 UNIT PRBC, Will discuss with Pulmonary about holding Eliquis for now. Renal failure still ongoing. 05/24: Patient had a positive occult and was anemic again today and received PRBC. GI was consulted. Repeat Dopplers are negative for DVT vascular recommends a CT/SQ heparin if tolerated and nephrology would like to increase IV fluids per FeNa results. Decrease metoprolol, seroquel and librium. Hospitalist Physical - Constitutional Vitals: Temp Pulse Resp BP Pulse Ox 99.6 F 73 28 H 97/61 100 05/24/21 08:00 05/24/21 11:50 05/24/21 11:00 05/24/21 11:50 05/24/21 11:50 General appearance: Present: no acute distress - EENT Eyes: Present: PERRL, EOM intact - Neck Neck: Present: normal ROM - Respiratory Respiratory effort: normal Respiratory: bilateral: diminished - Cardiovascular Rhythm: regular Heart Sounds: Present: S1 & S2. Absent: systolic murmur, diastolic murmur - Extremities Extremities: no ischemia, pulses intact, pulses symmetrical, normal temperature, normal color Peripheral Pulses: within normal limits - Abdominal General gastrointestinal: soft, non-tender, non-distended, normal bowel sounds - Integumentary Integumentary: Present: warm, dry - Psychiatric Psychiatric: other (sedated) - Neurologic Neurologic: other (sedated) HEART Score - HEART Score EKG: Non-specific Age: 45-65 Risk factors: 1-2 risk factors Troponin: Troponin T 0.400 ng/mL (0.00-0.029) H* D 05/16/21 18:40 Troponin: 1-3x normal limit - Critical Actions Critical Actions: 4-6 pts:12-16.6% risk of adverse cardiac event. Should be admitted Results - Labs CBC & Chem 7: 05/24/21 04:11 05/24/21 04:11 Labs: Laboratory Last Values WBC 16.7 K/mm3 (4.5-11.0) H 05/24/21 04:11 RBC 2.19 M/mm3 (3.65-5.03) L 05/24/21 04:11 Hgb 6.4 gm/dl (11.8-15.2) L 05/24/21 04:11 Hct 20.5 % (35.5-45.6) L 05/24/21 04:11 MCV 94 fl (84-94) 05/24/21 04:11 MCH 29 pg (28-32) 05/24/21 04:11 MCHC 31 % (32-34) L 05/24/21 04:11 RDW 17.0 % (13.2-15.2) H 05/24/21 04:11 Plt Count 320 K/mm3 (140-440) 05/24/21 04:11 Lymph % (Auto) Collections Clerk 05/16/21 10:21 [place] % (Auto) Collections Clerk 05/16/21 10:21 Eos % (Auto) Collections Clerk 05/16/21 10:21 Baso % (Auto) Collections Clerk 05/16/21 10:21 Lymph # (Auto) Collections Clerk 05/16/21 10:21 [place] # (Auto) Collections Clerk 05/16/21 10:21 Eos # (Auto) Collections Clerk 05/16/21 10:21 Baso # (Auto) Collections Clerk 05/16/21 10:21 Add Manual Diff Complete 05/16/21 10:21 Total Counted 100 05/16/21 10:21 Seg Neutrophils % Collections Clerk 05/16/21 10:21 Seg Neuts % (Manual) 83.0 % (40.0-70.0) H 05/16/21 10:21 Band Neutrophils % 2.0 % 05/16/21 10:21 Lymphocytes % (Manual) 4.0 % (13.4-35.0) L 05/16/21 10:21 Reactive Lymphs % (Man) 0 % 05/16/21 10:21 Monocytes % (Manual) 9.0 % (0.0-7.3) H 05/16/21 10:21 Eosinophils % (Manual) 0 % (0.0-4.3) 05/16/21 10:21 Basophils % (Manual) 0 % (0.0-1.8) 05/16/21 10:21 Metamyelocytes % 0 % 05/16/21 10:21 Myelocytes % 2.0 % 05/16/21 10:21 Promyelocytes % 0 % 05/16/21 10:21 Blast Cells % 0 % 05/16/21 10:21 Nucleated RBC % Not Reportable 05/16/21 10:21 Seg Neutrophils # Collections Clerk 05/16/21 10:21 Seg Neutrophils # Man 22.9 K/mm3 (1.8-7.7) H 05/16/21 10:21 Band Neutrophils # 0.6 K/mm3 05/16/21 10:21 Lymphocytes # (Manual) 1.1 K/mm3 (1.2-5.4) L 05/16/21 10:21 Abs React Lymphs (Man) 0.0 K/mm3 05/16/21 10:21 Monocytes # (Manual) 2.5 K/mm3 (0.0-0.8) H 05/16/21 10:21 Eosinophils # (Manual) 0.0 K/mm3 (0.0-0.4) 05/16/21 10:21 Basophils # (Manual) 0.0 K/mm3 (0.0-0.1) 05/16/21 10:21 Metamyelocytes # 0.0 K/mm3 05/16/21 10:21 Myelocytes # 0.6 K/mm3 05/16/21 10:21 Promyelocytes # 0.0 K/mm3 05/16/21 10:21 Blast Cells # 0.0 K/mm3 05/16/21 10:21 WBC Morphology Not Reportable 05/16/21 10:21 Hypersegmented Neuts Not Reportable 05/16/21 10:21 Hyposegmented Neuts Not Reportable 05/16/21 10:21 Hypogranular Neuts Not Reportable 05/16/21 10:21 Smudge Cells Not Reportable 05/16/21 10:21 Toxic Granulation Not Reportable 05/16/21 10:21 Toxic Vacuolation Not Reportable 05/16/21 10:21 Dohle Bodies Not Reportable 05/16/21 10:21 Pelger-Huet Anomaly Not Reportable 05/16/21 10:21 Jesse Rods Not Reportable 05/16/21 10:21 Platelet Estimate Consistent w auto 05/16/21 10:21 Clumped Platelets Few 05/16/21 10:21 Plt Clumps, EDTA Not Reportable 05/16/21 10:21 Large Platelets Not Reportable 05/16/21 10:21 Giant Platelets Not Reportable 05/16/21 10:21 Platelet Satelliting Not Reportable 05/16/21 10:21 Plt Morphology Comment Not Reportable 05/16/21 10:21 RBC Morphology Not Reportable 05/16/21 10:21 Dimorphic RBCs Not Reportable 05/16/21 10:21 Polychromasia Not Reportable 05/16/21 10:21 Hypochromasia Not Reportable 05/16/21 10:21 Poikilocytosis Not Reportable 05/16/21 10:21 Anisocytosis 1+ 05/16/21 10:21 Microcytosis Not Reportable 05/16/21 10:21 Macrocytosis Few 05/16/21 10:21 Spherocytes Not Reportable 05/16/21 10:21 Pappenheimer Bodies Not Reportable 05/16/21 10:21 Sickle Cells Not Reportable 05/16/21 10:21 Target Cells Not Reportable 05/16/21 10:21 Tear Drop Cells Not Reportable 05/16/21 10:21 Ovalocytes Not Reportable 05/16/21 10:21 Helmet Cells Not Reportable 05/16/21 10:21 [place] Bodies Not Reportable 05/16/21 10:21 [place] Rings Not Reportable 05/16/21 10:21 [place] Cells Not Reportable 05/16/21 10:21 Bite Cells Not Reportable 05/16/21 10:21 Crenated Cell Not Reportable 05/16/21 10:21 Elliptocytes Not Reportable 05/16/21 10:21 Acanthocytes (Spur) Not Reportable 05/16/21 10:21 Rouleaux Not Reportable 05/16/21 10:21 Hemoglobin C Crystals Not Reportable 05/16/21 10:21 Schistocytes Not Reportable 05/16/21 10:21 Malaria parasites Not Reportable 05/16/21 10:21 Tomi Bodies Not Reportable 05/16/21 10:21 Hem Pathologist Commnt No 05/16/21 10:21 PT 13.6 Sec. (12.2-14.9) 05/19/21 19:36 INR 0.94 (0.87-1.13) 05/19/21 19:36 APTT 72.5 Sec. (24.2-36.6) H* 05/19/21 19:36 D-Dimer 2730.61 ng/mlDDU (0-234) H 05/12/21 07:19 Heparin Anti-Xa Level 0.47 U.I./ml (0.3-0.7) 05/19/21 05:23 ABG pH 7.435 pH Units (7.350-7.450) 05/24/21 09:55 ABG pCO2 39.0 mm Hg 05/24/21 09:55 ABG pO2 141.9 mm Hg (80.0-90.0) H 05/24/21 09:55 ABG HCO3 25.6 mmol/L (20.0-26.0) 05/24/21 09:55 ABG O2 Saturation 98.8 % (95.0-99.0) 05/24/21 09:55 ABG O2 Content 9.2 (0.0-44) 05/24/21 09:55 ABG Base Excess 1.2 mmol/L (-2.0-3.0) 05/24/21 09:55 ABG Hemoglobin 6.5 gm/dl (14.0-18.0) L 05/24/21 09:55 ABG Carboxyhemoglobin 1.6 % (0.0-5.0) 05/24/21 09:55 ABG Methemoglobin 0.5 % (0.0-1.5) 05/24/21 09:55 Oxyhemoglobin 96.7 % (95.0-99.0) 05/24/21 09:55 FiO2 50 % 05/24/21 09:55 Sodium 144 mmol/L (137-145) 05/24/21 04:11 Potassium 4.2 mmol/L (3.6-5.0) 05/24/21 04:11 Chloride 106.3 mmol/L (98-107) 05/24/21 04:11 Carbon Dioxide 23 mmol/L (22-30) 05/24/21 04:11 Anion Gap 19 mmol/L 05/24/21 04:11 BUN 78 mg/dL (9-20) H 05/24/21 04:11 Creatinine 2.8 mg/dL (0.8-1.3) H 05/24/21 04:11 Estimated GFR 23 ml/min 05/24/21 04:11 BUN/Creatinine Ratio 28 % 05/24/21 04:11 Glucose 119 mg/dL (75-100) H 05/24/21 04:11 POC Glucose 104 mg/dL (70-105) 05/24/21 11:01 Lactic Acid 0.90 mmol/L (0.7-2.0) 05/20/21 09:17 Calcium 8.6 mg/dL (8.4-10.2) 05/24/21 04:11 Phosphorus 5.30 mg/dL (2.5-4.5) H 05/24/21 04:11 Magnesium 2.60 mg/dL (1.7-2.3) H 05/24/21 04:11 Iron 10 ug/dL (49-181) L 05/23/21 Unknown TIBC 151 mcg/dL (250-450) L 05/23/21 Unknown Ferritin 640.2 ng/mL (30.0-300.0) H 05/12/21 07:19 Total Bilirubin 0.50 mg/dL (0.1-1.2) 05/24/21 04:11 AST 152 units/L (5-40) H 05/24/21 04:11 ALT 125 units/L (7-56) H 05/24/21 04:11 Alkaline Phosphatase 72 units/L (35-129) 05/24/21 04:11 Lactate Dehydrogenase 311 units/L (91-180) H 05/23/21 Unknown Total Creatine Kinase 406 units/L (55-170) H 05/04/21 08:42 Troponin T 0.400 ng/mL (0.00-0.029) H* D 05/16/21 18:40 C-Reactive Protein 1.60 mg/dL (0.00-1.30) H 05/12/21 07:19 Total Protein 6.6 g/dL (6.3-8.2) 05/24/21 04:11 Albumin 2.5 g/dL (3.9-5) L 05/24/21 04:11 Albumin/Globulin Ratio 0.6 % 05/24/21 04:11 Triglycerides 144 mg/dL (2-149) 05/10/21 04:57 Cholesterol 140 mg/dL (50-199) 05/04/21 07:25 LDL Cholesterol Direct 89 mg/dL (50-130) 05/04/21 07:25 HDL Cholesterol 48 mg/dL (40-59) 05/04/21 07:25 Cholesterol/HDL Ratio 2.91 % 05/04/21 07:25 Procalcitonin 0.63 ng/mL (<0.15) 05/09/21 15:53 Urine Color Yellow (Yellow) 05/23/21 16:30 Urine Turbidity Turbid (Clear) 05/23/21 16:30 Urine pH 5.0 (5.0-7.0) 05/23/21 16:30 Ur Specific [place] 1.014 (1.003-1.030) 05/23/21 16:30 Urine Protein 100 mg/dl mg/dL (Negative) 05/23/21 16:30 Urine Glucose (UA) Neg mg/dL (Negative) 05/23/21 16:30 Urine Ketones Neg mg/dL (Negative) 05/23/21 16:30 Urine Blood Mod (Negative) 05/23/21 16:30 Urine Nitrite Neg (Negative) 05/23/21 16:30 Urine Bilirubin Neg (Negative) 05/23/21 16:30 Urine Urobilinogen < 2.0 mg/dL (<2.0) 05/23/21 16:30 Ur Leukocyte Esterase Tr (Negative) 05/23/21 16:30 Urine WBC (Auto) 12.0 /HPF (0.0-6.0) H 05/23/21 16:30 Urine RBC (Auto) 3.0 /HPF (0.0-6.0) 05/23/21 16:30 U Epithel Cells (Auto) 1.0 /HPF (0-13.0) 05/23/21 16:30 Urine Bacteria (Auto) 1+ /HPF (Negative) 05/23/21 16:30 Uric Acid Crystals Few 05/09/21 00:40 Triple Phos Crystals 2+ 05/09/21 13:22 Amorphous Crystals 2+ 05/23/21 16:30 Urine Mucus Few /HPF 05/23/21 16:30 Urine Creatinine 100.1 mg/dL (0.1-20.0) H 05/23/21 16:30 Protein/Creatinin Ratio 0.42 05/10/21 11:03 Urine Sodium 25 mmol/L 05/23/21 16:30 Fraction Sodium Excret 0.3 05/23/21 16:30 Urine Total Protein 42 mg/dL (5-11.8) H 05/10/21 11:03 Urine Opiates Screen Negative 05/04/21 Unknown Urine Methadone Screen Negative 05/04/21 Unknown Ur Barbiturates Screen Negative 05/04/21 Unknown Ur Phencyclidine Scrn Negative 05/04/21 Unknown Ur Amphetamines Screen Positive 05/04/21 Unknown U Benzodiazepines Scrn Negative 05/04/21 Unknown Urine Cocaine Screen Negative 05/04/21 Unknown U Marijuana (THC) Screen Negative 05/04/21 Unknown Drugs of Abuse Note Disclamer 05/04/21 Unknown Immunofix Electrophor see below 05/05/21 03:40 AUDRA Screen Negative (Negative) 05/05/21 03:40 Proteinase 3 (PR3) Ab <1.0 AI (<1.0) 05/05/21 03:40 Myeloperoxidase Ab <1.0 AI (<1.0) 05/05/21 03:40 Complement C3 72 mg/dL (82-185) L 05/05/21 03:40 Complement C4 17 mg/dL (15-53) 05/05/21 03:40 Coronavirus (PCR) Positive (Negative) A 05/05/21 08:30 Hepatitis A IgM Ab Non-reactive (NonReactive) 05/05/21 03:40 Hep Bs Antigen Non-reactive (Negative) 05/05/21 03:40 Hep B Core IgM Ab Non-reactive (NonReactive) 05/05/21 03:40 Hepatitis C Antibody Reactive (NonReactive) A 05/05/21 03:40 Blood Type O POSITIVE 05/23/21 07:12 Antibody Screen Negative 05/23/21 07:12 Crossmatch See Detail 05/23/21 07:12 Microbiology: Microbiology 05/23/21 14:50 Tracheal Aspirate Sputum Culture - Preliminary 05/21/21 03:12 Peripheral/Venous Blood Culture - Preliminary NO GROWTH AFTER 72 HOURS 05/21/21 02:22 Peripheral/Venous Blood Culture - Preliminary NO GROWTH AFTER 72 HOURS 05/23/21 Unknown Stool Stool Occult Blood (ZAC) - Final 05/21/21 Unknown Urine,Catheterized - Straight Catheter Urine Culture - Final NO GROWTH AFTER 48 HOURS Merino/IV: Voiding Method Condom Catheter Active Medications - Current Medications Current Medications: Generic Name Dose Route Start Last Admin Trade Name Freq PRN Reason Stop Dose Admin Acetaminophen 650 mg 05/04/21 12:34 05/23/21 04:53 Acetaminophen 325 Mg Tab PO 650 mg Q4H PRN Administration Pain MILD(1-3)/Fever >100.5/MARIA Acetaminophen 650 mg 05/07/21 16:00 05/11/21 16:25 Acetaminophen 650 Mg Rect Supp MN 650 mg Q4H PRN Administration Pain, Mild (1-3) Atorvastatin Calcium 40 mg 05/09/21 22:00 05/23/21 21:11 Atorvastatin 40 Mg Tab FEEDTUBE 40 mg QHS RISHI Administration Chlordiazepoxide HCl 75 mg 05/21/21 21:00 05/24/21 05:42 Chlordiazepoxide 25 Mg Cap PO 75 mg Q8HR RISHI Administration Dextrose 0 ml 05/09/21 10:49 05/14/21 06:55 Dextrose 10% *Hypoglycemia IV 250 ml PRN PRN Administration Hypoglycemia Fentanyl 50 mcg 05/23/21 15:00 Fentanyl 100 Mcg/2 Ml Inj IV Q10MIN PRN ANALGESIA Haloperidol Lactate 5 mg 05/09/21 18:32 05/18/21 19:52 Haloperidol Lactate 5 Mg/1 Ml Inj IV 5 mg Q6H PRN Administration Agitation Hydralazine HCl 50 mg 05/04/21 14:00 05/24/21 05:43 Hydralazine 25 Mg Tab PO 50 mg Q8HR RISHI Administration Hydrophilic Ointment 1 applic 05/05/21 15:21 Lip Therapy Vaseline TP Q2HR PRN Dry Lips Sodium Chloride 1,000 mls @ 125 mls/hr 05/23/21 11:00 05/24/21 05:38 Nacl 0.45% 1000 Ml IV 75 mls/hr DIRECT RISHI Administration Ertapenem 0.5 gm/ Sodium 50 mls @ 100 mls/hr 05/23/21 16:00 05/23/21 16:55 Chloride IV 100 mls/hr Q24H RISHI Administration Fentanyl Citrate 2,000 mcg in 100 mls @ 4.082 mls/hr 05/23/21 15:00 Fentanyl Drip Premix IV TITR RISHI Protocol 1 MCG/KG/HR Sodium Chloride 500 mls @ 0 mls/hr 05/24/21 07:45 Nacl 0.9% 500 Ml IV 05/24/21 23:59 ONCE RISHI As Directed Pantoprazole Sodium 80 mg/ 100 mls @ 10 mls/hr 05/24/21 09:00 05/24/21 11:02 Sodium Chloride IV 8 mg/hr DIRECT RISHI 10 mls/hr Administration 8 MG/HR Insulin Human Lispro 0 unit 05/10/21 09:40 05/12/21 16:49 Insulin Lispro 100 Unit/Ml SUB-Q 2 unit Q6HR PRN Administration Hyperglycemia Protocol Labetalol HCl 10 mg 05/15/21 10:24 Labetalol 20 Mg/4 Ml Inj IV Q4H PRN sbp> 160. Metoprolol Tartrate 50 mg 05/10/21 14:00 05/24/21 09:50 Metoprolol Tartrate 50 Mg Tab FEEDTUBE 50 mg TID RISHI Administration Multi-Ingred Cream/Lotion/Oil/Oint 1 applic 05/05/21 15:21 Mineral Oil/Petrolatum, White Ophth Oint 3.5 Gm OU Q4HR PRN Dry Eye(s) Ondansetron HCl 4 mg 05/04/21 12:34 05/04/21 21:51 Ondansetron 4 Mg/2 Ml Inj IV 4 mg Q8H PRN Administration Nausea And Vomiting Quetiapine Fumarate 250 mg 05/22/21 15:30 05/24/21 09:50 Quetiapine 100 Mg Tab PO 250 mg BID RISHI Administration Senna/Docusate Sodium 1 tab 05/05/21 22:00 05/23/21 21:11 Sennosides/Docusate Sodium 8.6/50 Mg Tab FEEDTUBE 1 tab BID RISHI Administration Sodium Chloride 10 ml 05/04/21 22:00 05/23/21 21:11 Sodium Chloride 0.9% 10 Ml Flush Syringe IV 10 ml BID RISHI Administration Sodium Chloride 10 ml 05/04/21 12:34 05/06/21 13:59 Sodium Chloride 0.9% 10 Ml Flush Syringe IV 10 ml PRN PRN Administration LINE FLUSH Sodium Chloride 10 ml 05/09/21 09:46 Sodium Chloride 0.9% 50 Ml Ivpb IV PRN PRN FLUSH Nutrition/Malnutrition Assess - Dietary Evaluation Nutrition/Malnutrition Findings: Nutrition Notes Start: 05/05/21 16:15 Freq: Status: Active Protocol: Document 05/23/21 11:25 ROSAURA (Rec: 05/23/21 11:34 [facility] [id number]) Nutrition Notes Initial or Follow up Reassessment Current Diagnosis Acute Kidney Injury, Hypertension,Heart Failure, Respiratory Failure Other Pertinent Diagnosis Severe COVID-19 pneu, metabolic encephalopathy, polysubstance dependence Current Diet TF - Nepro at 60ml/hr Labs/Tests BUN 62 Cr 2.8 K 4.4 (was 5.7 and 5.2 on 05/21 and 05/22, respectively) Pertinent Medications reviewed Height 5 ft 7 in Weight 81.647 kg [place] Body Weight (kg) 67.27 BMI 28.1 Weight Status Overweight Subjective/Other Information 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 Lead Housekeeper changed TF formula sec to worsening renal function. Pt on BiPap support. Percent of energy/protein needs met: 135% energy 100% pro Burn Absent Trauma Absent #1 Nutrition Diagnosis Inadequate oral intake Diagnosis Progress(for reassessment Continues documentation) Is patient on ventilator? No Is Patient Ambulatory and/or Out of Bed No REE-([facility]-confined to bed) [phone] Calculation Used for Recommendations [facility] Additional Notes Pro needs 1.2-2g/k-163g/ day Fluid needs 1ml/kcal Nutrition Intervention Nutrition Support: Decrease Nepro rate to 45ml/hr , as current rate provides excess kcal. Provide 200ml water flush q4h. Kcal 1,944 Protein (gm) 87 Carbohydrates (gm) 174 Fat (gm) 104 Fluid (mL) 785 Fiber (gm) 14 Goal #1 TF tolerance Goal #2 TF to meet at least 75% energy and pro needs Follow-Up By: 05/27/21 Additional Comments F/U: TF tolerance/rate decrease, MARKETING TECHNOLOGY COORDINATOR evaluation, renal function, resp status <LALA RODARTE - Last Filed: 05/26/21 13:38> Assessment and Plan Assessment and plan: I saw and evaluated the patient. Discussed with the nurse practitioner and agree with their findings and plan as documented in this note. Hospitalist Physical - Constitutional Vitals: Temp Pulse Resp BP Pulse Ox 98.4 F 73 25 H 121/91 99 05/26/21 12:00 05/26/21 13:00 05/26/21 13:00 05/26/21 13:00 05/26/21 13:00 HEART Score - HEART Score Troponin: Troponin T 0.400 ng/mL (0.00-0.029) H* D 05/16/21 18:40 Results - Labs CBC & Chem 7: 05/26/21 07:09 05/26/21 07:09 Labs: Laboratory Last Values WBC 15.8 K/mm3 (4.5-11.0) H 05/26/21 07:09 RBC 3.21 M/mm3 (3.65-5.03) L 05/26/21 07:09 Hgb 9.2 gm/dl (11.8-15.2) L 05/26/21 07:09 Hct 29.6 % (35.5-45.6) L 05/26/21 07:09 MCV 92 fl (84-94) 05/26/21 07:09 MCH 29 pg (28-32) 05/26/21 07:09 MCHC 31 % (32-34) L 05/26/21 07:09 RDW 16.6 % (13.2-15.2) H 05/26/21 07:09 Plt Count 388 K/mm3 (140-440) 05/26/21 07:09 Lymph % (Auto) Collections Clerk 05/16/21 10:21 [place] % (Auto) Collections Clerk 05/16/21 10:21 Eos % (Auto) Collections Clerk 05/16/21 10:21 Baso % (Auto) Collections Clerk 05/16/21 10:21 Lymph # (Auto) Collections Clerk 05/16/21 10:21 [place] # (Auto) Collections Clerk 05/16/21 10:21 Eos # (Auto) Collections Clerk 05/16/21 10:21 Baso # (Auto) Collections Clerk 05/16/21 10:21 Add Manual Diff Complete 05/16/21 10:21 Total Counted 100 05/16/21 10:21 Seg Neutrophils % Collections Clerk 05/16/21 10:21 Seg Neuts % (Manual) 83.0 % (40.0-70.0) H 05/16/21 10:21 Band Neutrophils % 2.0 % 05/16/21 10:21 Lymphocytes % (Manual) 4.0 % (13.4-35.0) L 05/16/21 10:21 Reactive Lymphs % (Man) 0 % 05/16/21 10:21 Monocytes % (Manual) 9.0 % (0.0-7.3) H 05/16/21 10:21 Eosinophils % (Manual) 0 % (0.0-4.3) 05/16/21 10:21 Basophils % (Manual) 0 % (0.0-1.8) 05/16/21 10:21 Metamyelocytes % 0 % 05/16/21 10:21 Myelocytes % 2.0 % 05/16/21 10:21 Promyelocytes % 0 % 05/16/21 10:21 Blast Cells % 0 % 05/16/21 10:21 Nucleated RBC % Not Reportable 05/16/21 10:21 Seg Neutrophils # Collections Clerk 05/16/21 10:21 Seg Neutrophils # Man 22.9 K/mm3 (1.8-7.7) H 05/16/21 10:21 Band Neutrophils # 0.6 K/mm3 05/16/21 10:21 Lymphocytes # (Manual) 1.1 K/mm3 (1.2-5.4) L 05/16/21 10:21 Abs React Lymphs (Man) 0.0 K/mm3 05/16/21 10:21 Monocytes # (Manual) 2.5 K/mm3 (0.0-0.8) H 05/16/21 10:21 Eosinophils # (Manual) 0.0 K/mm3 (0.0-0.4) 05/16/21 10:21 Basophils # (Manual) 0.0 K/mm3 (0.0-0.1) 05/16/21 10:21 Metamyelocytes # 0.0 K/mm3 05/16/21 10:21 Myelocytes # 0.6 K/mm3 05/16/21 10:21 Promyelocytes # 0.0 K/mm3 05/16/21 10:21 Blast Cells # 0.0 K/mm3 05/16/21 10:21 WBC Morphology Not Reportable 05/16/21 10:21 Hypersegmented Neuts Not Reportable 05/16/21 10:21 Hyposegmented Neuts Not Reportable 05/16/21 10:21 Hypogranular Neuts Not Reportable 05/16/21 10:21 Smudge Cells Not Reportable 05/16/21 10:21 Toxic Granulation Not Reportable 05/16/21 10:21 Toxic Vacuolation Not Reportable 05/16/21 10:21 Dohle Bodies Not Reportable 05/16/21 10:21 Pelger-Huet Anomaly Not Reportable 05/16/21 10:21 Jesse Rods Not Reportable 05/16/21 10:21 Platelet Estimate Consistent w auto 05/16/21 10:21 Clumped Platelets Few 05/16/21 10:21 Plt Clumps, EDTA Not Reportable 05/16/21 10:21 Large Platelets Not Reportable 05/16/21 10:21 Giant Platelets Not Reportable 05/16/21 10:21 Platelet Satelliting Not Reportable 05/16/21 10:21 Plt Morphology Comment Not Reportable 05/16/21 10:21 RBC Morphology Not Reportable 05/16/21 10:21 Dimorphic RBCs Not Reportable 05/16/21 10:21 Polychromasia Not Reportable 05/16/21 10:21 Hypochromasia Not Reportable 05/16/21 10:21 Poikilocytosis Not Reportable 05/16/21 10:21 Anisocytosis 1+ 05/16/21 10:21 Microcytosis Not Reportable 05/16/21 10:21 Macrocytosis Few 05/16/21 10:21 Spherocytes Not Reportable 05/16/21 10:21 Pappenheimer Bodies Not Reportable 05/16/21 10:21 Sickle Cells Not Reportable 05/16/21 10:21 Target Cells Not Reportable 05/16/21 10:21 Tear Drop Cells Not Reportable 05/16/21 10:21 Ovalocytes Not Reportable 05/16/21 10:21 Helmet Cells Not Reportable 05/16/21 10:21 [place] Bodies Not Reportable 05/16/21 10:21 [place] Rings Not Reportable 05/16/21 10:21 Alec Cells Not Reportable 05/16/21 10:21 Bite Cells Not Reportable 05/16/21 10:21 Crenated Cell Not Reportable 05/16/21 10:21 Elliptocytes Not Reportable 05/16/21 10:21 Acanthocytes (Spur) Not Reportable 05/16/21 10:21 Rouleaux Not Reportable 05/16/21 10:21 Hemoglobin C Crystals Not Reportable 05/16/21 10:21 Schistocytes Not Reportable 05/16/21 10:21 Malaria parasites Not Reportable 05/16/21 10:21 Tomi Bodies Not Reportable 05/16/21 10:21 Hem Pathologist Commnt No 05/16/21 10:21 PT 14.9 Sec. (12.2-14.9) 05/25/21 04:25 INR 1.05 (0.87-1.13) 05/25/21 04:25 APTT 72.5 Sec. (24.2-36.6) H* 05/19/21 19:36 D-Dimer 2730.61 ng/mlDDU (0-234) H 05/12/21 07:19 Heparin Anti-Xa Level 0.47 U.I./ml (0.3-0.7) 05/19/21 05:23 ABG pH 7.441 pH Units (7.350-7.450) 05/26/21 09:10 ABG pCO2 37.8 mm Hg 05/26/21 09:10 ABG pO2 135.5 mm Hg (80.0-90.0) H 05/26/21 09:10 ABG HCO3 25.1 mmol/L (20.0-26.0) 05/26/21 09:10 ABG O2 Saturation 98.7 % (95.0-99.0) 05/26/21 09:10 ABG O2 Content 13.2 (0.0-44) 05/26/21 09:10 ABG Base Excess 1.0 mmol/L (-2.0-3.0) 05/26/21 09:10 ABG Hemoglobin 9.6 gm/dl (14.0-18.0) L 05/26/21 09:10 ABG Carboxyhemoglobin 2.0 % (0.0-5.0) 05/26/21 09:10 ABG Methemoglobin 0.6 % (0.0-1.5) 05/26/21 09:10 Oxyhemoglobin 96.1 % (95.0-99.0) 05/26/21 09:10 FiO2 30 % 05/26/21 09:10 Sodium 137 mmol/L (137-145) 05/26/21 07:09 Potassium 4.6 mmol/L (3.6-5.0) 05/26/21 07:09 Chloride 103.9 mmol/L (98-107) 05/26/21 07:09 Carbon Dioxide 22 mmol/L (22-30) 05/26/21 07:09 Anion Gap 16 mmol/L 05/26/21 07:09 BUN 62 mg/dL (9-20) H 05/26/21 07:09 Creatinine 2.1 mg/dL (0.8-1.3) H 05/26/21 07:09 Estimated GFR 33 ml/min 05/26/21 07:09 BUN/Creatinine Ratio 30 % 05/26/21 07:09 Glucose 112 mg/dL (75-100) H 05/26/21 07:09 POC Glucose 109 mg/dL (70-105) H 05/26/21 11:20 Lactic Acid 0.90 mmol/L (0.7-2.0) 05/20/21 09:17 Calcium 8.2 mg/dL (8.4-10.2) L 05/26/21 07:09 Phosphorus 3.70 mg/dL (2.5-4.5) D 05/25/21 04:25 Magnesium 2.30 mg/dL (1.7-2.3) 05/25/21 04:25 Iron 10 ug/dL (49-181) L 05/23/21 Unknown TIBC 151 mcg/dL (250-450) L 05/23/21 Unknown Ferritin 640.2 ng/mL (30.0-300.0) H 05/12/21 07:19 Total Bilirubin 0.50 mg/dL (0.1-1.2) 05/24/21 04:11 AST 152 units/L (5-40) H 05/24/21 04:11 ALT 125 units/L (7-56) H 05/24/21 04:11 Alkaline Phosphatase 72 units/L (35-129) 05/24/21 04:11 Lactate Dehydrogenase 311 units/L (91-180) H 05/23/21 Unknown Total Creatine Kinase 406 units/L (55-170) H 05/04/21 08:42 Troponin T 0.400 ng/mL (0.00-0.029) H* D 05/16/21 18:40 C-Reactive Protein 1.60 mg/dL (0.00-1.30) H 05/12/21 07:19 Total Protein 6.6 g/dL (6.3-8.2) 05/24/21 04:11 Albumin 2.5 g/dL (3.9-5) L 05/24/21 04:11 Albumin/Globulin Ratio 0.6 % 05/24/21 04:11 Triglycerides 144 mg/dL (2-149) 05/10/21 04:57 Cholesterol 140 mg/dL (50-199) 05/04/21 07:25 LDL Cholesterol Direct 89 mg/dL (50-130) 05/04/21 07:25 HDL Cholesterol 48 mg/dL (40-59) 05/04/21 07:25 Cholesterol/HDL Ratio 2.91 % 05/04/21 07:25 Procalcitonin 0.63 ng/mL (<0.15) 05/09/21 15:53 Urine Color Yellow (Yellow) 05/26/21 09:50 Urine Turbidity Turbid (Clear) 05/26/21 09:50 Urine pH 5.0 (5.0-7.0) 05/26/21 09:50 Ur Specific [place] 1.014 (1.003-1.030) 05/26/21 09:50 Urine Protein 30 mg/dl mg/dL (Negative) 05/26/21 09:50 Urine Glucose (UA) Neg mg/dL (Negative) 05/26/21 09:50 Urine Ketones Neg mg/dL (Negative) 05/26/21 09:50 Urine Blood Sm (Negative) 05/26/21 09:50 Urine Nitrite Neg (Negative) 05/26/21 09:50 Urine Bilirubin Neg (Negative) 05/26/21 09:50 Urine Urobilinogen < 2.0 mg/dL (<2.0) 05/26/21 09:50 Ur Leukocyte Esterase Tr (Negative) 05/26/21 09:50 Urine WBC (Auto) 38.0 /HPF (0.0-6.0) H 05/26/21 09:50 Urine RBC (Auto) 5.0 /HPF (0.0-6.0) 05/26/21 09:50 U Epithel Cells (Auto) 1.0 /HPF (0-13.0) 05/23/21 16:30 Urine Bacteria (Auto) 1+ /HPF (Negative) 05/23/21 16:30 Uric Acid Crystals Few 05/09/21 00:40 Triple Phos Crystals 2+ 05/09/21 13:22 Amorphous Crystals 3+ 05/26/21 09:50 Granular Casts 20 /LPF 05/26/21 09:50 Urine Mucus Few /HPF 05/23/21 16:30 Urine Creatinine 100.1 mg/dL (0.1-20.0) H 05/23/21 16:30 Protein/Creatinin Ratio 0.42 05/10/21 11:03 Urine Sodium 25 mmol/L 05/23/21 16:30 Fraction Sodium Excret 0.3 05/23/21 16:30 Urine Total Protein 42 mg/dL (5-11.8) H 05/10/21 11:03 Urine Opiates Screen Negative 05/04/21 Unknown Urine Methadone Screen Negative 05/04/21 Unknown Ur Barbiturates Screen Negative 05/04/21 Unknown Ur Phencyclidine Scrn Negative 05/04/21 Unknown Ur Amphetamines Screen Positive 05/04/21 Unknown U Benzodiazepines Scrn Negative 05/04/21 Unknown Urine Cocaine Screen Negative 05/04/21 Unknown U Marijuana (THC) Screen Negative 05/04/21 Unknown Drugs of Abuse Note Disclamer 05/04/21 Unknown Immunofix Electrophor see below 05/05/21 03:40 AUDRA Screen Negative (Negative) 05/05/21 03:40 Proteinase 3 (PR3) Ab <1.0 AI (<1.0) 05/05/21 03:40 Myeloperoxidase Ab <1.0 AI (<1.0) 05/05/21 03:40 Complement C3 72 mg/dL (82-185) L 05/05/21 03:40 Complement C4 17 mg/dL (15-53) 05/05/21 03:40 Coronavirus (PCR) Positive (Negative) A 05/05/21 08:30 Hepatitis A IgM Ab Non-reactive (NonReactive) 05/05/21 03:40 Hep Bs Antigen Non-reactive (Negative) 05/05/21 03:40 Hep B Core IgM Ab Non-reactive (NonReactive) 05/05/21 03:40 Hepatitis C Antibody Reactive (NonReactive) A 05/05/21 03:40 Blood Type O POSITIVE 05/23/21 07:12 Antibody Screen Negative 05/23/21 07:12 Crossmatch See Detail 05/23/21 07:12 Microbiology: Microbiology 05/21/21 03:12 Peripheral/Venous Blood Culture - Final NO GROWTH AFTER 5 DAYS 05/21/21 02:22 Peripheral/Venous Blood Culture - Final NO GROWTH AFTER 5 DAYS Merino/IV: Voiding Method Indwelling Catheter Active Medications - Current Medications Current Medications: Generic Name Dose Route Start Last Admin Trade Name Freq PRN Reason Stop Dose Admin Acetaminophen 650 mg 05/04/21 12:34 05/26/21 07:43 Acetaminophen 325 Mg Tab PO 650 mg Q4H PRN Administration Pain MILD(1-3)/Fever >100.5/MARIA Acetaminophen 650 mg 05/07/21 16:00 05/11/21 16:25 Acetaminophen 650 Mg Rect Supp MN 650 mg Q4H PRN Administration Pain, Mild (1-3) Atorvastatin Calcium 40 mg 05/09/21 22:00 05/26/21 03:30 Atorvastatin 40 Mg Tab FEEDTUBE 40 mg QHS RISHI Administration Chlordiazepoxide HCl 50 mg 05/24/21 20:00 05/26/21 07:43 Chlordiazepoxide 25 Mg Cap PO 05/27/21 19:59 50 mg TID RISHI Administration Chlordiazepoxide HCl 25 mg 05/27/21 20:00 Chlordiazepoxide 25 Mg Cap PO 05/30/21 19:59 TID RISHI Dextrose 0 ml 05/09/21 10:49 05/14/21 06:55 Dextrose 10% *Hypoglycemia IV 250 ml PRN PRN Administration Hypoglycemia Fentanyl 50 mcg 05/23/21 15:00 Fentanyl 100 Mcg/2 Ml Inj IV Q10MIN PRN ANALGESIA Haloperidol Lactate 5 mg 05/09/21 18:32 05/18/21 19:52 Haloperidol Lactate 5 Mg/1 Ml Inj IV 5 mg Q6H PRN Administration Agitation Hydralazine HCl 50 mg 05/04/21 14:00 05/26/21 05:55 Hydralazine 25 Mg Tab PO 50 mg Q8HR RISHI Administration Hydrophilic Ointment 1 applic 05/05/21 15:21 Lip Therapy Vaseline TP Q2HR PRN Dry Lips Sodium Chloride 1,000 mls @ 75 mls/hr 05/23/21 11:00 05/26/21 03:28 Nacl 0.45% 1000 Ml IV 75 mls/hr DIRECT RISHI Administration Fentanyl Citrate 2,000 mcg in 100 mls @ 4.082 mls/hr 05/23/21 15:00 Fentanyl Drip Premix IV TITR RISHI Protocol 1 MCG/KG/HR Ertapenem 1 gm/ Sodium 50 mls @ 100 mls/hr 05/26/21 14:00 Chloride IV 05/29/21 10:29 QDAY RISHI Insulin Human Lispro 0 unit 05/10/21 09:40 05/12/21 16:49 Insulin Lispro 100 Unit/Ml SUB-Q 2 unit Q6HR PRN Administration Hyperglycemia Protocol Labetalol HCl 10 mg 05/15/21 10:24 05/25/21 08:15 Labetalol 20 Mg/4 Ml Inj IV 10 mg Q4H PRN Administration sbp> 160. Lansoprazole 30 mg 05/26/21 10:00 05/26/21 09:42 Lansoprazole 30 Mg Solutab FEEDTUBE 30 mg BID RISHI Administration Metoprolol Tartrate 50 mg 05/26/21 08:00 05/26/21 07:46 Metoprolol Tartrate 25 Mg Tab FEEDTUBE 50 mg TID RISHI Administration Multi-Ingred Cream/Lotion/Oil/Oint 1 applic 05/05/21 15:21 Mineral Oil/Petrolatum, White Ophth Oint 3.5 Gm OU Q4HR PRN Dry Eye(s) Ondansetron HCl 4 mg 05/04/21 12:34 05/04/21 21:51 Ondansetron 4 Mg/2 Ml Inj IV 4 mg Q8H PRN Administration Nausea And Vomiting Polyethylene Glycol 17 gm 05/26/21 22:00 Polyethylene Glycol 3350 17 Gm Powder PO QHS RISHI Quetiapine Fumarate 100 mg 05/25/21 22:00 05/26/21 09:22 Quetiapine 100 Mg Tab PO 100 mg BID RISHI Administration Senna/Docusate Sodium 1 tab 05/05/21 22:00 05/26/21 09:21 Sennosides/Docusate Sodium 8.6/50 Mg Tab FEEDTUBE 1 tab BID RISHI Administration Sodium Chloride 10 ml 05/04/21 22:00 05/26/21 09:23 Sodium Chloride 0.9% 10 Ml Flush Syringe IV 10 ml BID RISHI Administration Sodium Chloride 10 ml 05/04/21 12:34 05/06/21 13:59 Sodium Chloride 0.9% 10 Ml Flush Syringe IV 10 ml PRN PRN Administration LINE FLUSH Sodium Chloride 10 ml 05/09/21 09:46 Sodium Chloride 0.9% 50 Ml Ivpb IV PRN PRN FLUSH Nutrition/Malnutrition Assess - Dietary Evaluation Nutrition/Malnutrition Findings: Nutrition Notes Start: 05/05/21 16:15 Freq: Status: Active Protocol: Document 05/23/21 11:25 [facility] (Rec: 05/23/21 11:34 [facility] [id number]) Nutrition Notes Initial or Follow up Reassessment Current Diagnosis Acute Kidney Injury, Hypertension,Heart Failure, Respiratory Failure Other Pertinent Diagnosis Severe COVID-19 pneu, metabolic encephalopathy, polysubstance dependence Current Diet TF - Nepro at 60ml/hr Labs/Tests BUN 62 Cr 2.8 K 4.4 (was 5.7 and 5.2 on 05/21 and 05/22, respectively) Pertinent Medications reviewed Height 5 ft 7 in Weight 81.647 kg [place] Body Weight (kg) 67.27 BMI 28.1 Weight Status Overweight Subjective/Other Information 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 Lead Housekeeper changed TF formula sec to worsening renal function. Pt on BiPap support. Percent of energy/protein needs met: 135% energy 100% pro Burn Absent Trauma Absent #1 Nutrition Diagnosis Inadequate oral intake Diagnosis Progress(for reassessment Continues documentation) Is patient on ventilator? No Is Patient Ambulatory and/or [facility] of Bed [phone] Calculation Used for Recommendations [facility] Additional Notes Pro needs 1.2-2g/k-163g/ day Fluid needs 1ml/kcal Nutrition Intervention Nutrition Support: Decrease Nepro rate to 45ml/hr , as current rate provides excess kcal. Provide 200ml water flush q4h. Kcal 1,944 Protein (gm) 87 Carbohydrates (gm) 174 Fat (gm) 104 Fluid (mL) 785 Fiber (gm) 14 Goal #1 TF tolerance Goal #2 TF to meet at least 75% energy and pro needs Follow-Up By: 05/27/21 Additional Comments F/U: TF tolerance/rate decrease, MARKETING TECHNOLOGY COORDINATOR evaluation, renal function, resp status
--- NOTE | 2021-05-24 13:02 | Progress Note ---
Assessment and Plan Acute hypoxic resp failure on MVS COVID positive NSTEMI Acute kidney injury Cardiomyopathy EF 35-40% History of hepatitis C Elevated D-dimer. Low probability for PE seen on VQ scan Tobacco abuse Polysubstance abusepatient with positive methamphetamines and has a history of cocaine use Anemia - reduced Seroquel to 150 mg p.o. bid - wean off Librium - discontinue rectal tube - place consult for trach and PEG - 2 Units PRBC - reduced Metoprolol to 25 mg from 50 mg dosing re: labile BP's - started on a Protonix drip by7 G.I. team - Heparin held - repeat dopplers negative for VTE - anticoagulation per vascular team - daily SAT and SBT assessment as tolerated - use fentanyl for sedation - follow cultures and address - continue care as below otherwise; - continue to wean supplemental oxygen for target O2 sat's > 90% acutely - VAP bundle addressed - continue lung protective strategies - continue bronchodilators with pulmonary hygiene per RT - wean per pulmonary driven protocols otherwise - avoid nephrotoxins, renally dose all medications - continue accuchecks with glycemic control per SSI (While critically ill target blood glucose of 140-180 mg/dL; avoid hypoglycemia) - sedation prn for target RASS 0 to -1 - continue to avoid benzodiazepine's, reduce the possibility of delirium - prn analgesia per CPOT score - Maintenance of sleep-wake cycle, avoid delirium - continue enteral nutritional support at goal rate as tolerated - G.I. & VTE prophylaxis - PT/OT/ROM exercises - continue mobility protocols for pressure ulcer prophylaxis - Monitor hemodynamics closely - continue other care per attending / other consultants - discharge planning ongoing concurrently COVID SPECIFIC INTERVENTIONS - Appears to have incidental COVID infection- Remdesivir not administered secondary to renal failure - continue systemic steroids for severe COVID-19 infection empirically (Dexamethasone) - follow repeat COVID tests results - zinc and vitamin C supplementation - Monitor inflammatory markers per facility protocol - ferritin, Ddimer, CRP - therapeutic anticoagulation per system Protocol based on d-dimer and clinical considerations (on therapeutic heparin for NSTEMI) - Continue contact and airborne isolation .... Re-evaluate in am & prn CONDITION: CRITICAL PROGNOSIS: GUARDED CODE STATUS: FULL CODE The high probability of a clinically significant, sudden or life-threatening deterioration of the [respiratory, cardiovascular & neurologic] system(s) required my full and direct attention, intervention and personal management. The aggregate critical care time was [34] minutes without overlap. Time includes spent on; [x] Data Review and interpretation [x] Patient assessment and monitoring of vital signs [x] Documentation [x] Medication orders and management Subjective Date of service: 05/24/21 Principal diagnosis: AHRF; COVID-19 infection; NSTEMI; YE; HFrEF (35-40%); Polysubstance abuse Interval history: Patient is seen today for: Acute hypoxemic Resp failure; COVID-19 infection; NSTEMI; YE; HFrEF (35-40%); Polysubstance abuse; Anemia Seen and examined at bedside; 24hour events reviewed; nursing and respiratory care staff consulted; no adverse overnight events reported to me; resting in bed; back on MVS yesterday; remains encephalopathic; lethargic really; Hb dropped despite prior transfusion and to receive 2 more units PRBC; no gross bleeding reported Objective Vital Signs - 12hr 05/24/21 05/24/21 05/24/21 01:15 01:30 01:45 Temperature Pulse Rate 83 83 83 Pulse Rate [ From Monitor] Respiratory 19 19 21 Rate Blood Pressure 137/91 127/89 135/90 O2 Sat by Pulse 100 100 100 Oximetry 05/24/21 05/24/21 05/24/21 02:00 02:15 02:30 Temperature Pulse Rate 84 83 83 Pulse Rate [ From Monitor] Respiratory 25 H 20 24 Rate Blood Pressure 131/93 129/95 134/91 O2 Sat by Pulse 100 100 100 Oximetry 05/24/21 05/24/21 05/24/21 02:45 03:00 03:15 Temperature Pulse Rate 83 83 83 Pulse Rate [ From Monitor] Respiratory 23 22 19 Rate Blood Pressure 133/92 135/91 132/92 O2 Sat by Pulse 100 100 100 Oximetry 05/24/21 05/24/21 05/24/21 03:30 03:45 04:00 Temperature 99.4 F Pulse Rate 82 84 82 Pulse Rate [ From Monitor] Respiratory 21 21 22 Rate Blood Pressure 131/93 137/88 129/85 O2 Sat by Pulse 100 100 100 Oximetry 05/24/21 05/24/21 05/24/21 04:10 04:15 04:30 Temperature Pulse Rate 82 82 83 Pulse Rate [ From Monitor] Respiratory 21 20 Rate Blood Pressure 129/85 134/87 135/89 O2 Sat by Pulse 100 100 100 Oximetry 05/24/21 05/24/21 05/24/21 04:45 05:00 05:15 Temperature Pulse Rate 83 83 78 Pulse Rate [ From Monitor] Respiratory 23 24 21 Rate Blood Pressure 139/88 145/95 O2 Sat by Pulse 100 100 100 Oximetry 05/24/21 05/24/21 05/24/21 05:30 05:43 05:45 Temperature Pulse Rate 84 81 81 Pulse Rate [ From Monitor] Respiratory 16 21 Rate Blood Pressure 131/88 131/88 122/85 O2 Sat by Pulse 100 100 Oximetry 05/24/21 05/24/21 05/24/21 06:00 06:15 06:30 Temperature Pulse Rate 81 81 81 Pulse Rate [ From Monitor] Respiratory 21 22 Rate Blood Pressure 126/86 125/86 O2 Sat by Pulse 100 100 100 Oximetry 05/24/21 05/24/21 05/24/21 06:45 07:00 07:15 Temperature Pulse Rate 81 81 79 Pulse Rate [ From Monitor] Respiratory 23 23 19 Rate Blood Pressure 129/86 138/93 129/87 O2 Sat by Pulse 100 100 100 Oximetry 05/24/21 05/24/21 05/24/21 07:30 07:45 08:00 Temperature 99.6 F Pulse Rate 80 78 79 Pulse Rate [ 79 From Monitor] Respiratory 23 21 20 Rate Blood Pressure 135/89 129/86 138/88 O2 Sat by Pulse 100 100 100 Oximetry 05/24/21 05/24/21 05/24/21 08:15 08:30 08:45 Temperature Pulse Rate 81 84 80 Pulse Rate [ From Monitor] Respiratory 21 20 21 Rate Blood Pressure 134/88 134/92 138/90 O2 Sat by Pulse 100 99 100 Oximetry 05/24/21 05/24/21 05/24/21 09:00 09:15 09:25 Temperature Pulse Rate 82 80 80 Pulse Rate [ From Monitor] Respiratory 23 20 Rate Blood Pressure 143/92 133/87 133/87 O2 Sat by Pulse 100 100 100 Oximetry 05/24/21 05/24/21 05/24/21 09:30 09:45 09:50 Temperature Pulse Rate 80 82 80 Pulse Rate [ From Monitor] Respiratory 21 22 Rate Blood Pressure 136/91 139/91 139/91 O2 Sat by Pulse 100 100 Oximetry 05/24/21 05/24/21 05/24/21 10:01 10:30 11:00 Temperature Pulse Rate 78 73 73 Pulse Rate [ From Monitor] Respiratory 21 21 28 H Rate Blood Pressure 108/73 95/66 97/61 O2 Sat by Pulse 100 100 100 Oximetry 05/24/21 11:50 Temperature Pulse Rate 73 Pulse Rate [ From Monitor] Respiratory Rate Blood Pressure 97/61 O2 Sat by Pulse 100 Oximetry Constitutional: no acute distress, other (middle aged male without increased respiratory effort at rest) Eyes: non-icteric ENT: oropharynx moist, other (ETT 24 cm ELIZABET) Neck: supple, no lymphadenopathy, no JVD Effort: mildly labored Ascultation: Bilateral: diminished breath sounds, rhonchi (bases) Percussion: Bilateral: not dull Cardiovascular: regular rate and rhythm, other (S1,S2) Gastrointestinal: normoactive bowel sounds, soft, non-tender, non-distended Integumentary: normal Extremities: no cyanosis, no edema, pulses normal Neurologic: non-focal exam (grossly), pupils equal and round, unable to assess (sedated) Psychiatric: other CBC and BMP: 05/25/21 04:25 05/25/21 04:25 ABG, PT/INR, D-dimer: ABG ABG pH 7.435 pH Units (7.350-7.450) 05/24/21 09:55 ABG pCO2 39.0 mm Hg 05/24/21 09:55 ABG pO2 141.9 mm Hg (80.0-90.0) H 05/24/21 09:55 ABG O2 Saturation 98.8 % (95.0-99.0) 05/24/21 09:55 PT/INR, D-dimer PT 13.6 Sec. (12.2-14.9) 05/19/21 19:36 INR 0.94 (0.87-1.13) 05/19/21 19:36 D-Dimer 2730.61 ng/mlDDU (0-234) H 05/12/21 07:19 Abnormal lab findings: Abnormal Labs 05/04/21 05/04/21 05/04/21 07:25 07:25 07:25 WBC 12.9 H RBC 3.04 L Hgb 9.5 L Hct 28.4 L MCV MCHC RDW 15.4 H Lymph % (Auto) 11.4 L [place] % (Auto) 10.1 H Lymph # (Auto) [place] # (Auto) 1.3 H Seg Neutrophils % 78.0 H Seg Neuts % (Manual) Lymphocytes % (Manual) Monocytes % (Manual) Seg Neutrophils # 10.0 H Seg Neutrophils # Man Lymphocytes # (Manual) Monocytes # (Manual) PT 15.1 H APTT D-Dimer Heparin Anti-Xa Level ABG pH ABG pO2 ABG HCO3 ABG O2 Saturation ABG Base Excess ABG Hemoglobin Oxyhemoglobin Sodium 135 L Potassium Chloride Carbon Dioxide BUN 65 H Creatinine 3.4 H Glucose 118 H POC Glucose Calcium Phosphorus Magnesium Iron TIBC Ferritin Total Bilirubin 1.50 H AST 519 H ALT 475 H Lactate Dehydrogenase Total Creatine Kinase Troponin T 1.300 H* C-Reactive Protein Albumin Urine WBC (Auto) Urine Creatinine Urine Total Protein Complement C3 Coronavirus (PCR) Hepatitis C Antibody Crossmatch 05/04/21 05/04/21 05/04/21 07:25 08:42 08:42 WBC RBC Hgb Hct MCV MCHC RDW Lymph % (Auto) [place] % (Auto) Lymph # (Auto) [place] # (Auto) Seg Neutrophils % Seg Neuts % (Manual) Lymphocytes % (Manual) Monocytes % (Manual) Seg Neutrophils # Seg Neutrophils # Man Lymphocytes # (Manual) Monocytes # (Manual) PT APTT D-Dimer 579.49 H Heparin Anti-Xa Level ABG pH ABG pO2 ABG HCO3 ABG O2 Saturation ABG Base Excess ABG Hemoglobin Oxyhemoglobin Sodium Potassium Chloride Carbon Dioxide BUN Creatinine Glucose POC Glucose Calcium Phosphorus Magnesium Iron TIBC Ferritin Total Bilirubin AST ALT Lactate Dehydrogenase Total Creatine Kinase 406 H Troponin T 1.230 H* C-Reactive Protein Albumin Urine WBC (Auto) Urine Creatinine Urine Total Protein Complement C3 Coronavirus (PCR) Hepatitis C Antibody Crossmatch 05/04/21 05/04/21 05/04/21 10:13 13:34 18:14 WBC RBC Hgb 8.8 L Hct 26.6 L MCV MCHC RDW Lymph % (Auto) [place] % (Auto) Lymph # (Auto) [place] # (Auto) Seg Neutrophils % Seg Neuts % (Manual) Lymphocytes % (Manual) Monocytes % (Manual) Seg Neutrophils # Seg Neutrophils # Man Lymphocytes # (Manual) Monocytes # (Manual) PT APTT D-Dimer Heparin Anti-Xa Level < 0.10 L ABG pH ABG pO2 ABG HCO3 ABG O2 Saturation ABG Base Excess ABG Hemoglobin Oxyhemoglobin Sodium Potassium Chloride Carbon Dioxide BUN Creatinine Glucose POC Glucose Calcium Phosphorus Magnesium Iron TIBC Ferritin Total Bilirubin AST ALT Lactate Dehydrogenase Total Creatine Kinase Troponin T 1.400 H* C-Reactive Protein Albumin Urine WBC (Auto) Urine Creatinine Urine Total Protein Complement C3 Coronavirus (PCR) Hepatitis C Antibody Crossmatch 05/05/21 05/05/21 05/05/21 03:40 03:40 03:40 WBC RBC Hgb Hct MCV MCHC RDW Lymph % (Auto) [place] % (Auto) Lymph # (Auto) [place] # (Auto) Seg Neutrophils % Seg Neuts % (Manual) Lymphocytes % (Manual) Monocytes % (Manual) Seg Neutrophils # Seg Neutrophils # Man Lymphocytes # (Manual) Monocytes # (Manual) PT APTT D-Dimer Heparin Anti-Xa Level 0.11 L ABG pH ABG pO2 ABG HCO3 ABG O2 Saturation ABG Base Excess ABG Hemoglobin Oxyhemoglobin Sodium Potassium 3.3 L Chloride Carbon Dioxide BUN 59 H Creatinine 2.6 H Glucose 139 H POC Glucose Calcium Phosphorus Magnesium Iron TIBC Ferritin Total Bilirubin AST ALT Lactate Dehydrogenase Total Creatine Kinase Troponin T C-Reactive Protein Albumin Urine WBC (Auto) Urine Creatinine Urine Total Protein Complement C3 Coronavirus (PCR) Hepatitis C Antibody Reactive A Crossmatch 05/05/21 05/05/21 05/05/21 03:40 08:30 09:57 WBC RBC Hgb Hct MCV MCHC RDW Lymph % (Auto) [place] % (Auto) Lymph # (Auto) [place] # (Auto) Seg Neutrophils % Seg Neuts % (Manual) Lymphocytes % (Manual) Monocytes % (Manual) Seg Neutrophils # Seg Neutrophils # Man Lymphocytes # (Manual) Monocytes # (Manual) PT APTT D-Dimer Heparin Anti-Xa Level ABG pH ABG pO2 ABG HCO3 ABG O2 Saturation ABG Base Excess ABG Hemoglobin Oxyhemoglobin Sodium Potassium Chloride Carbon Dioxide BUN Creatinine Glucose POC Glucose Calcium Phosphorus Magnesium Iron TIBC Ferritin Total Bilirubin AST ALT Lactate Dehydrogenase Total Creatine Kinase Troponin T C-Reactive Protein Albumin Urine WBC (Auto) Urine Creatinine 100.8 H Urine Total Protein Complement C3 72 L Coronavirus (PCR) Positive A Hepatitis C Antibody Crossmatch 05/05/21 05/05/21 05/05/21 11:28 17:00 19:51 WBC RBC Hgb Hct MCV MCHC RDW Lymph % (Auto) [place] % (Auto) Lymph # (Auto) [place] # (Auto) Seg Neutrophils % Seg Neuts % (Manual) Lymphocytes % (Manual) Monocytes % (Manual) Seg Neutrophils # Seg Neutrophils # Man Lymphocytes # (Manual) Monocytes # (Manual) PT APTT D-Dimer Heparin Anti-Xa Level 0.10 L 0.22 L ABG pH 7.304 L ABG pO2 140.8 H ABG HCO3 ABG O2 Saturation ABG Base Excess -2.1 L ABG Hemoglobin 10.2 L Oxyhemoglobin Sodium Potassium Chloride Carbon Dioxide BUN Creatinine Glucose POC Glucose Calcium Phosphorus Magnesium Iron TIBC Ferritin Total Bilirubin AST ALT Lactate Dehydrogenase Total Creatine Kinase Troponin T C-Reactive Protein Albumin Urine WBC (Auto) Urine Creatinine Urine Total Protein Complement C3 Coronavirus (PCR) Hepatitis C Antibody Crossmatch 05/06/21 05/06/21 05/06/21 03:47 06:15 17:53 WBC RBC Hgb 9.0 L Hct 27.8 L MCV MCHC RDW Lymph % (Auto) [place] % (Auto) Lymph # (Auto) [place] # (Auto) Seg Neutrophils % Seg Neuts % (Manual) Lymphocytes % (Manual) Monocytes % (Manual) Seg Neutrophils # Seg Neutrophils # Man Lymphocytes # (Manual) Monocytes # (Manual) PT APTT D-Dimer Heparin Anti-Xa Level 0.10 L ABG pH ABG pO2 143.5 H ABG HCO3 ABG O2 Saturation ABG Base Excess -2.4 L ABG Hemoglobin 6.9 L Oxyhemoglobin Sodium Potassium Chloride Carbon Dioxide BUN Creatinine Glucose POC Glucose Calcium Phosphorus Magnesium Iron TIBC Ferritin Total Bilirubin AST ALT Lactate Dehydrogenase Total Creatine Kinase Troponin T C-Reactive Protein Albumin Urine WBC (Auto) Urine Creatinine Urine Total Protein Complement C3 Coronavirus (PCR) Hepatitis C Antibody Crossmatch 05/07/21 05/07/21 05/07/21 00:07 03:22 03:45 WBC RBC Hgb Hct MCV MCHC RDW Lymph % (Auto) [place] % (Auto) Lymph # (Auto) [place] # (Auto) Seg Neutrophils % Seg Neuts % (Manual) Lymphocytes % (Manual) Monocytes % (Manual) Seg Neutrophils # Seg Neutrophils # Man Lymphocytes # (Manual) Monocytes # (Manual) PT APTT D-Dimer Heparin Anti-Xa Level < 0.10 L ABG pH ABG pO2 104.3 H ABG HCO3 ABG O2 Saturation ABG Base Excess -2.6 L ABG Hemoglobin 9.1 L Oxyhemoglobin Sodium Potassium Chloride 107.1 H Carbon Dioxide 20 L BUN 56 H Creatinine 2.9 H Glucose POC Glucose Calcium Phosphorus Magnesium Iron TIBC Ferritin Total Bilirubin AST ALT Lactate Dehydrogenase Total Creatine Kinase Troponin T C-Reactive Protein Albumin Urine WBC (Auto) Urine Creatinine Urine Total Protein Complement C3 Coronavirus (PCR) Hepatitis C Antibody Crossmatch 05/07/21 05/07/21 05/07/21 07:44 16:28 22:41 WBC RBC Hgb Hct MCV MCHC RDW Lymph % (Auto) [place] % (Auto) Lymph # (Auto) [place] # (Auto) Seg Neutrophils % Seg Neuts % (Manual) Lymphocytes % (Manual) Monocytes % (Manual) Seg Neutrophils # Seg Neutrophils # Man Lymphocytes # (Manual) Monocytes # (Manual) PT APTT D-Dimer Heparin Anti-Xa Level < 0.10 L 0.10 L < 0.10 L ABG pH ABG pO2 ABG HCO3 ABG O2 Saturation ABG Base Excess ABG Hemoglobin Oxyhemoglobin Sodium Potassium Chloride Carbon Dioxide BUN Creatinine Glucose POC Glucose Calcium Phosphorus Magnesium Iron TIBC Ferritin Total Bilirubin AST ALT Lactate Dehydrogenase Total Creatine Kinase Troponin T C-Reactive Protein Albumin Urine WBC (Auto) Urine Creatinine Urine Total Protein Complement C3 Coronavirus (PCR) Hepatitis C Antibody Crossmatch 05/08/21 05/08/21 05/08/21 03:25 04:34 07:30 WBC 12.4 H RBC 3.02 L Hgb 9.5 L Hct 29.2 L MCV 97 H MCHC RDW 16.7 H Lymph % (Auto) 8.1 L [place] % (Auto) 11.0 H Lymph # (Auto) 1.0 L [place] # (Auto) 1.4 H Seg Neutrophils % 80.1 H Seg Neuts % (Manual) Lymphocytes % (Manual) Monocytes % (Manual) Seg Neutrophils # 9.9 H Seg Neutrophils # Man Lymphocytes # (Manual) Monocytes # (Manual) PT APTT D-Dimer Heparin Anti-Xa Level ABG pH ABG pO2 139.0 H ABG HCO3 ABG O2 Saturation ABG Base Excess ABG Hemoglobin 8.8 L Oxyhemoglobin Sodium Potassium Chloride 110.5 H Carbon Dioxide BUN 59 H Creatinine 2.8 H Glucose 103 H POC Glucose Calcium Phosphorus Magnesium Iron TIBC Ferritin Total Bilirubin AST ALT 327 H Lactate Dehydrogenase Total Creatine Kinase Troponin T C-Reactive Protein Albumin 3.1 L Urine WBC (Auto) Urine Creatinine Urine Total Protein Complement C3 Coronavirus (PCR) Hepatitis C Antibody Crossmatch 05/09/21 05/09/21 05/09/21 04:10 04:20 04:20 WBC 11.7 H RBC 2.79 L Hgb 8.7 L Hct 26.5 L MCV 95 H MCHC RDW 16.2 H Lymph % (Auto) [place] % (Auto) Lymph # (Auto) [place] # (Auto) Seg Neutrophils % Seg Neuts % (Manual) Lymphocytes % (Manual) Monocytes % (Manual) Seg Neutrophils # Seg Neutrophils # Man Lymphocytes # (Manual) Monocytes # (Manual) PT APTT D-Dimer Heparin Anti-Xa Level ABG pH ABG pO2 161.6 H ABG HCO3 ABG O2 Saturation ABG Base Excess ABG Hemoglobin 8.3 L Oxyhemoglobin Sodium 151 H Potassium Chloride 114.5 H Carbon Dioxide 21 L BUN 57 H Creatinine 2.4 H Glucose POC Glucose Calcium Phosphorus Magnesium Iron TIBC Ferritin Total Bilirubin AST ALT 210 H Lactate Dehydrogenase Total Creatine Kinase Troponin T C-Reactive Protein Albumin 2.9 L Urine WBC (Auto) Urine Creatinine Urine Total Protein Complement C3 Coronavirus (PCR) Hepatitis C Antibody Crossmatch 05/09/21 05/09/21 05/09/21 09:48 09:48 13:22 WBC 11.6 H RBC 3.00 L Hgb 9.0 L Hct 28.4 L MCV MCHC RDW 15.9 H Lymph % (Auto) 5.9 L [place] % (Auto) 8.9 H Lymph # (Auto) 0.7 L [place] # (Auto) 1.0 H Seg Neutrophils % 84.3 H Seg Neuts % (Manual) Lymphocytes % (Manual) Monocytes % (Manual) Seg Neutrophils # 9.8 H Seg Neutrophils # Man Lymphocytes # (Manual) Monocytes # (Manual) PT APTT D-Dimer Heparin Anti-Xa Level ABG pH ABG pO2 ABG HCO3 ABG O2 Saturation ABG Base Excess ABG Hemoglobin Oxyhemoglobin Sodium Potassium Chloride Carbon Dioxide BUN Creatinine Glucose POC Glucose Calcium Phosphorus Magnesium Iron TIBC Ferritin Total Bilirubin AST ALT Lactate Dehydrogenase Total Creatine Kinase Troponin T C-Reactive Protein 8.70 H Albumin Urine WBC (Auto) 25.0 H Urine Creatinine Urine Total Protein Complement C3 Coronavirus (PCR) Hepatitis C Antibody Crossmatch 05/09/21 05/09/21 05/10/21 15:20 18:16 04:57 WBC RBC 2.87 L Hgb 8.8 L Hct 27.0 L MCV MCHC RDW 15.9 H Lymph % (Auto) [place] % (Auto) Lymph # (Auto) [place] # (Auto) Seg Neutrophils % Seg Neuts % (Manual) Lymphocytes % (Manual) Monocytes % (Manual) Seg Neutrophils # Seg Neutrophils # Man Lymphocytes # (Manual) Monocytes # (Manual) PT APTT D-Dimer Heparin Anti-Xa Level ABG pH ABG pO2 102.0 H ABG HCO3 ABG O2 Saturation ABG Base Excess -2.8 L ABG Hemoglobin 9.0 L Oxyhemoglobin Sodium Potassium Chloride Carbon Dioxide BUN Creatinine Glucose POC Glucose 130 H Calcium Phosphorus Magnesium Iron TIBC Ferritin Total Bilirubin AST ALT Lactate Dehydrogenase Total Creatine Kinase Troponin T C-Reactive Protein Albumin Urine WBC (Auto) Urine Creatinine Urine Total Protein Complement C3 Coronavirus (PCR) Hepatitis C Antibody Crossmatch 05/10/21 05/10/21 05/10/21 04:57 04:57 04:57 WBC RBC Hgb Hct MCV MCHC RDW Lymph % (Auto) [place] % (Auto) Lymph # (Auto) [place] # (Auto) Seg Neutrophils % Seg Neuts % (Manual) Lymphocytes % (Manual) Monocytes % (Manual) Seg Neutrophils # Seg Neutrophils # Man Lymphocytes # (Manual) Monocytes # (Manual) PT APTT D-Dimer 1546.78 H Heparin Anti-Xa Level ABG pH ABG pO2 ABG HCO3 ABG O2 Saturation ABG Base Excess ABG Hemoglobin Oxyhemoglobin Sodium 148 H Potassium Chloride 114.9 H Carbon Dioxide 21 L BUN 57 H Creatinine 2.3 H Glucose 157 H POC Glucose Calcium Phosphorus Magnesium Iron TIBC Ferritin 888.2 H Total Bilirubin AST ALT Lactate Dehydrogenase 289 H Total Creatine Kinase Troponin T C-Reactive Protein 6.80 H Albumin Urine WBC (Auto) Urine Creatinine Urine Total Protein Complement C3 Coronavirus (PCR) Hepatitis C Antibody Crossmatch 05/10/21 05/10/21 05/10/21 05:09 08:04 11:03 WBC RBC Hgb Hct MCV MCHC RDW Lymph % (Auto) [place] % (Auto) Lymph # (Auto) [place] # (Auto) Seg Neutrophils % Seg Neuts % (Manual) Lymphocytes % (Manual) Monocytes % (Manual) Seg Neutrophils # Seg Neutrophils # Man Lymphocytes # (Manual) Monocytes # (Manual) PT APTT D-Dimer Heparin Anti-Xa Level ABG pH 7.473 H ABG pO2 114.6 H ABG HCO3 ABG O2 Saturation ABG Base Excess ABG Hemoglobin 9.5 L Oxyhemoglobin Sodium Potassium Chloride Carbon Dioxide BUN Creatinine Glucose POC Glucose 152 H Calcium Phosphorus Magnesium Iron TIBC Ferritin Total Bilirubin AST ALT Lactate Dehydrogenase Total Creatine Kinase Troponin T C-Reactive Protein Albumin Urine WBC (Auto) Urine Creatinine 100.8 H Urine Total Protein 42 H Complement C3 Coronavirus (PCR) Hepatitis C Antibody Crossmatch 05/10/21 05/10/21 05/10/21 13:07 18:01 23:31 WBC RBC Hgb Hct MCV MCHC RDW Lymph % (Auto) [place] % (Auto) Lymph # (Auto) [place] # (Auto) Seg Neutrophils % Seg Neuts % (Manual) Lymphocytes % (Manual) Monocytes % (Manual) Seg Neutrophils # Seg Neutrophils # Man Lymphocytes # (Manual) Monocytes # (Manual) PT APTT D-Dimer Heparin Anti-Xa Level ABG pH ABG pO2 ABG HCO3 ABG O2 Saturation ABG Base Excess ABG Hemoglobin Oxyhemoglobin Sodium Potassium Chloride Carbon Dioxide BUN Creatinine Glucose POC Glucose 150 H 189 H 142 H Calcium Phosphorus Magnesium Iron TIBC Ferritin Total Bilirubin AST ALT Lactate Dehydrogenase Total Creatine Kinase Troponin T C-Reactive Protein Albumin Urine WBC (Auto) Urine Creatinine Urine Total Protein Complement C3 Coronavirus (PCR) Hepatitis C Antibody Crossmatch 05/10/21 05/11/21 05/11/21 Unknown 05:25 06:53 WBC RBC Hgb Hct MCV MCHC RDW Lymph % (Auto) [place] % (Auto) Lymph # (Auto) [place] # (Auto) Seg Neutrophils % Seg Neuts % (Manual) Lymphocytes % (Manual) Monocytes % (Manual) Seg Neutrophils # Seg Neutrophils # Man Lymphocytes # (Manual) Monocytes # (Manual) PT APTT D-Dimer Heparin Anti-Xa Level ABG pH ABG pO2 126.6 H ABG HCO3 ABG O2 Saturation ABG Base Excess ABG Hemoglobin 9.2 L Oxyhemoglobin Sodium 150 H Potassium Chloride 116.6 H Carbon Dioxide 21 L BUN 62 H Creatinine 2.5 H Glucose 142 H POC Glucose 163 H Calcium Phosphorus Magnesium Iron TIBC Ferritin Total Bilirubin AST ALT Lactate Dehydrogenase Total Creatine Kinase Troponin T C-Reactive Protein Albumin Urine WBC (Auto) Urine Creatinine Urine Total Protein Complement C3 Coronavirus (PCR) Hepatitis C Antibody Crossmatch 05/11/21 05/11/21 05/11/21 06:53 11:06 13:51 WBC RBC 3.07 L Hgb 9.3 L Hct 29.0 L MCV 95 H MCHC RDW 16.1 H Lymph % (Auto) [place] % (Auto) Lymph # (Auto) [place] # (Auto) Seg Neutrophils % Seg Neuts % (Manual) Lymphocytes % (Manual) Monocytes % (Manual) Seg Neutrophils # Seg Neutrophils # Man Lymphocytes # (Manual) Monocytes # (Manual) PT APTT D-Dimer Heparin Anti-Xa Level ABG pH ABG pO2 74.9 L ABG HCO3 ABG O2 Saturation ABG Base Excess -3.3 L ABG Hemoglobin 10.8 L Oxyhemoglobin Sodium Potassium Chloride Carbon Dioxide BUN Creatinine Glucose POC Glucose 145 H Calcium Phosphorus Magnesium Iron TIBC Ferritin Total Bilirubin AST ALT Lactate Dehydrogenase Total Creatine Kinase Troponin T C-Reactive Protein Albumin Urine WBC (Auto) Urine Creatinine Urine Total Protein Complement C3 Coronavirus (PCR) Hepatitis C Antibody Crossmatch 05/11/21 05/11/21 05/11/21 14:43 14:43 15:47 WBC RBC Hgb 9.2 L Hct 29.7 L MCV MCHC RDW Lymph % (Auto) [place] % (Auto) Lymph # (Auto) [place] # (Auto) Seg Neutrophils % Seg Neuts % (Manual) Lymphocytes % (Manual) Monocytes % (Manual) Seg Neutrophils # Seg Neutrophils # Man Lymphocytes # (Manual) Monocytes # (Manual) PT 15.6 H APTT D-Dimer Heparin Anti-Xa Level ABG pH ABG pO2 ABG HCO3 ABG O2 Saturation ABG Base Excess ABG Hemoglobin Oxyhemoglobin Sodium Potassium Chloride Carbon Dioxide BUN Creatinine Glucose POC Glucose 137 H Calcium Phosphorus Magnesium Iron TIBC Ferritin Total Bilirubin AST ALT Lactate Dehydrogenase Total Creatine Kinase Troponin T C-Reactive Protein Albumin Urine WBC (Auto) Urine Creatinine Urine Total Protein Complement C3 Coronavirus (PCR) Hepatitis C Antibody Crossmatch 05/12/21 05/12/21 05/12/21 00:04 05:07 07:19 WBC 11.9 H RBC 3.00 L Hgb 9.1 L Hct 28.9 L MCV 96 H MCHC RDW 16.7 H Lymph % (Auto) 11.5 L [place] % (Auto) 8.2 H Lymph # (Auto) [place] # (Auto) 1.0 H Seg Neutrophils % 80.0 H Seg Neuts % (Manual) Lymphocytes % (Manual) Monocytes % (Manual) Seg Neutrophils # 9.6 H Seg Neutrophils # Man Lymphocytes # (Manual) Monocytes # (Manual) PT APTT D-Dimer Heparin Anti-Xa Level ABG pH ABG pO2 ABG HCO3 ABG O2 Saturation ABG Base Excess ABG Hemoglobin Oxyhemoglobin Sodium Potassium Chloride Carbon Dioxide BUN Creatinine Glucose POC Glucose 121 H 117 H Calcium Phosphorus Magnesium Iron TIBC Ferritin Total Bilirubin AST ALT Lactate Dehydrogenase Total Creatine Kinase Troponin T C-Reactive Protein Albumin Urine WBC (Auto) Urine Creatinine Urine Total Protein Complement C3 Coronavirus (PCR) Hepatitis C Antibody Crossmatch 05/12/21 05/12/21 05/12/21 07:19 07:19 07:19 WBC RBC Hgb Hct MCV MCHC RDW Lymph % (Auto) [place] % (Auto) Lymph # (Auto) [place] # (Auto) Seg Neutrophils % Seg Neuts % (Manual) Lymphocytes % (Manual) Monocytes % (Manual) Seg Neutrophils # Seg Neutrophils # Man Lymphocytes # (Manual) Monocytes # (Manual) PT APTT D-Dimer 2730.61 H Heparin Anti-Xa Level ABG pH ABG pO2 ABG HCO3 ABG O2 Saturation ABG Base Excess ABG Hemoglobin Oxyhemoglobin Sodium 146 H Potassium 5.1 H Chloride 112.4 H Carbon Dioxide 21 L BUN 61 H Creatinine 2.2 H Glucose 136 H POC Glucose Calcium 8.1 L Phosphorus Magnesium Iron TIBC Ferritin 640.2 H Total Bilirubin AST ALT Lactate Dehydrogenase 314 H Total Creatine Kinase Troponin T C-Reactive Protein 1.60 H Albumin Urine WBC (Auto) Urine Creatinine Urine Total Protein Complement C3 Coronavirus (PCR) Hepatitis C Antibody Crossmatch 05/12/21 05/12/21 05/12/21 11:10 16:10 16:38 WBC RBC Hgb Hct MCV MCHC RDW Lymph % (Auto) [place] % (Auto) Lymph # (Auto) [place] # (Auto) Seg Neutrophils % Seg Neuts % (Manual) Lymphocytes % (Manual) Monocytes % (Manual) Seg Neutrophils # Seg Neutrophils # Man Lymphocytes # (Manual) Monocytes # (Manual) PT APTT D-Dimer Heparin Anti-Xa Level 0.20 L ABG pH ABG pO2 ABG HCO3 ABG O2 Saturation ABG Base Excess ABG Hemoglobin Oxyhemoglobin Sodium Potassium Chloride Carbon Dioxide BUN Creatinine Glucose POC Glucose 131 H 157 H Calcium Phosphorus Magnesium Iron TIBC Ferritin Total Bilirubin AST ALT Lactate Dehydrogenase Total Creatine Kinase Troponin T C-Reactive Protein Albumin Urine WBC (Auto) Urine Creatinine Urine Total Protein Complement C3 Coronavirus (PCR) Hepatitis C Antibody Crossmatch 05/12/21 05/13/21 05/13/21 23:30 00:12 04:20 WBC RBC Hgb Hct MCV MCHC RDW Lymph % (Auto) [place] % (Auto) Lymph # (Auto) [place] # (Auto) Seg Neutrophils % Seg Neuts % (Manual) Lymphocytes % (Manual) Monocytes % (Manual) Seg Neutrophils # Seg Neutrophils # Man Lymphocytes # (Manual) Monocytes # (Manual) PT APTT D-Dimer Heparin Anti-Xa Level 0.13 L ABG pH ABG pO2 ABG HCO3 ABG O2 Saturation ABG Base Excess ABG Hemoglobin Oxyhemoglobin Sodium Potassium Chloride 111.2 H Carbon Dioxide BUN 53 H Creatinine 1.9 H Glucose 121 H POC Glucose 115 H Calcium 8.3 L Phosphorus Magnesium Iron TIBC Ferritin Total Bilirubin AST ALT Lactate Dehydrogenase Total Creatine Kinase Troponin T C-Reactive Protein Albumin Urine WBC (Auto) Urine Creatinine Urine Total Protein Complement C3 Coronavirus (PCR) Hepatitis C Antibody Crossmatch 05/13/21 05/13/21 05/13/21 04:20 11:15 11:29 WBC 13.1 H RBC 2.86 L Hgb 8.5 L Hct 26.9 L MCV MCHC RDW 15.7 H Lymph % (Auto) [place] % (Auto) Lymph # (Auto) [place] # (Auto) Seg Neutrophils % Seg Neuts % (Manual) Lymphocytes % (Manual) Monocytes % (Manual) Seg Neutrophils # Seg Neutrophils # Man Lymphocytes # (Manual) Monocytes # (Manual) PT APTT D-Dimer Heparin Anti-Xa Level ABG pH 7.456 H ABG pO2 106.0 H ABG HCO3 ABG O2 Saturation ABG Base Excess ABG Hemoglobin 7.1 L Oxyhemoglobin Sodium Potassium Chloride Carbon Dioxide BUN Creatinine Glucose POC Glucose 121 H Calcium Phosphorus Magnesium Iron TIBC Ferritin Total Bilirubin AST ALT Lactate Dehydrogenase Total Creatine Kinase Troponin T C-Reactive Protein Albumin Urine WBC (Auto) Urine Creatinine Urine Total Protein Complement C3 Coronavirus (PCR) Hepatitis C Antibody Crossmatch 05/13/21 05/13/21 05/14/21 16:38 23:43 04:26 WBC 14.2 H RBC 3.11 L Hgb 9.4 L Hct 29.3 L MCV MCHC RDW 15.4 H Lymph % (Auto) [place] % (Auto) Lymph # (Auto) [place] # (Auto) Seg Neutrophils % Seg Neuts % (Manual) Lymphocytes % (Manual) Monocytes % (Manual) Seg Neutrophils # Seg Neutrophils # Man Lymphocytes # (Manual) Monocytes # (Manual) PT APTT D-Dimer Heparin Anti-Xa Level ABG pH ABG pO2 ABG HCO3 ABG O2 Saturation ABG Base Excess ABG Hemoglobin Oxyhemoglobin Sodium Potassium Chloride Carbon Dioxide BUN Creatinine Glucose POC Glucose 119 H 55 L Calcium Phosphorus Magnesium Iron TIBC Ferritin Total Bilirubin AST ALT Lactate Dehydrogenase Total Creatine Kinase Troponin T C-Reactive Protein Albumin Urine WBC (Auto) Urine Creatinine Urine Total Protein Complement C3 Coronavirus (PCR) Hepatitis C Antibody Crossmatch 05/14/21 05/14/21 05/14/21 04:26 05:26 06:51 WBC RBC Hgb Hct MCV MCHC RDW Lymph % (Auto) [place] % (Auto) Lymph # (Auto) [place] # (Auto) Seg Neutrophils % Seg Neuts % (Manual) Lymphocytes % (Manual) Monocytes % (Manual) Seg Neutrophils # Seg Neutrophils # Man Lymphocytes # (Manual) Monocytes # (Manual) PT APTT D-Dimer Heparin Anti-Xa Level ABG pH ABG pO2 ABG HCO3 ABG O2 Saturation ABG Base Excess ABG Hemoglobin Oxyhemoglobin Sodium Potassium 3.4 L Chloride 107.6 H Carbon Dioxide BUN 42 H Creatinine 1.9 H Glucose POC Glucose 51 L 62 L Calcium Phosphorus Magnesium Iron TIBC Ferritin Total Bilirubin AST ALT Lactate Dehydrogenase Total Creatine Kinase Troponin T C-Reactive Protein Albumin Urine WBC (Auto) Urine Creatinine Urine Total Protein Complement C3 Coronavirus (PCR) Hepatitis C Antibody Crossmatch 05/14/21 05/14/21 05/14/21 09:58 12:05 12:08 WBC RBC Hgb Hct MCV MCHC RDW Lymph % (Auto) [place] % (Auto) Lymph # (Auto) [place] # (Auto) Seg Neutrophils % Seg Neuts % (Manual) Lymphocytes % (Manual) Monocytes % (Manual) Seg Neutrophils # Seg Neutrophils # Man Lymphocytes # (Manual) Monocytes # (Manual) PT APTT D-Dimer Heparin Anti-Xa Level ABG pH ABG pO2 ABG HCO3 ABG O2 Saturation ABG Base Excess ABG Hemoglobin Oxyhemoglobin Sodium Potassium 3.4 L Chloride Carbon Dioxide BUN 36 H Creatinine 1.8 H Glucose 133 H POC Glucose 60 L 127 H Calcium Phosphorus Magnesium Iron TIBC Ferritin Total Bilirubin AST ALT Lactate Dehydrogenase Total Creatine Kinase Troponin T C-Reactive Protein Albumin Urine WBC (Auto) Urine Creatinine Urine Total Protein Complement C3 Coronavirus (PCR) Hepatitis C Antibody Crossmatch 05/14/21 05/14/21 05/15/21 17:20 23:37 05:34 WBC RBC Hgb Hct MCV MCHC RDW Lymph % (Auto) [place] % (Auto) Lymph # (Auto) [place] # (Auto) Seg Neutrophils % Seg Neuts % (Manual) Lymphocytes % (Manual) Monocytes % (Manual) Seg Neutrophils # Seg Neutrophils # Man Lymphocytes # (Manual) Monocytes # (Manual) PT APTT D-Dimer Heparin Anti-Xa Level ABG pH ABG pO2 ABG HCO3 ABG O2 Saturation ABG Base Excess ABG Hemoglobin Oxyhemoglobin Sodium Potassium Chloride Carbon Dioxide BUN Creatinine Glucose POC Glucose 144 H 115 H 119 H Calcium Phosphorus Magnesium Iron TIBC Ferritin Total Bilirubin AST ALT Lactate Dehydrogenase Total Creatine Kinase Troponin T C-Reactive Protein Albumin Urine WBC (Auto) Urine Creatinine Urine Total Protein Complement C3 Coronavirus (PCR) Hepatitis C Antibody Crossmatch 05/15/21 05/15/21 05/15/21 07:26 07:26 14:35 WBC 13.8 H RBC 3.32 L Hgb 10.0 L Hct 31.2 L MCV MCHC RDW 16.0 H Lymph % (Auto) [place] % (Auto) Lymph # (Auto) [place] # (Auto) Seg Neutrophils % Seg Neuts % (Manual) Lymphocytes % (Manual) Monocytes % (Manual) Seg Neutrophils # Seg Neutrophils # Man Lymphocytes # (Manual) Monocytes # (Manual) PT APTT D-Dimer Heparin Anti-Xa Level ABG pH ABG pO2 ABG HCO3 ABG O2 Saturation ABG Base Excess ABG Hemoglobin Oxyhemoglobin Sodium 149 H D Potassium 3.5 L Chloride 113.2 H Carbon Dioxide BUN 29 H Creatinine 1.8 H Glucose 113 H POC Glucose 143 H Calcium Phosphorus Magnesium Iron TIBC Ferritin Total Bilirubin AST ALT Lactate Dehydrogenase Total Creatine Kinase Troponin T C-Reactive Protein Albumin Urine WBC (Auto) Urine Creatinine Urine Total Protein Complement C3 Coronavirus (PCR) Hepatitis C Antibody Crossmatch 05/16/21 05/16/21 05/16/21 06:12 08:43 10:05 WBC RBC Hgb Hct MCV MCHC RDW Lymph % (Auto) [place] % (Auto) Lymph # (Auto) [place] # (Auto) Seg Neutrophils % Seg Neuts % (Manual) Lymphocytes % (Manual) Monocytes % (Manual) Seg Neutrophils # Seg Neutrophils # Man Lymphocytes # (Manual) Monocytes # (Manual) PT APTT D-Dimer Heparin Anti-Xa Level 0.21 L ABG pH ABG pO2 240.8 H ABG HCO3 ABG O2 Saturation 99.4 H ABG Base Excess -2.6 L ABG Hemoglobin 10.7 L Oxyhemoglobin Sodium Potassium Chloride Carbon Dioxide BUN Creatinine Glucose POC Glucose 34 L Calcium Phosphorus Magnesium Iron TIBC Ferritin Total Bilirubin AST ALT Lactate Dehydrogenase Total Creatine Kinase Troponin T C-Reactive Protein Albumin Urine WBC (Auto) Urine Creatinine Urine Total Protein Complement C3 Coronavirus (PCR) Hepatitis C Antibody Crossmatch 05/16/21 05/16/21 05/16/21 10:21 10:21 13:14 WBC 27.6 H RBC Hgb 11.4 L Hct MCV 99 H MCHC 30 L RDW 18.1 H Lymph % (Auto) [place] % (Auto) Lymph # (Auto) [place] # (Auto) Seg Neutrophils % Seg Neuts % (Manual) 83.0 H Lymphocytes % (Manual) 4.0 L Monocytes % (Manual) 9.0 H Seg Neutrophils # Seg Neutrophils # Man 22.9 H Lymphocytes # (Manual) 1.1 L Monocytes # (Manual) 2.5 H PT APTT D-Dimer Heparin Anti-Xa Level ABG pH ABG pO2 ABG HCO3 ABG O2 Saturation ABG Base Excess ABG Hemoglobin Oxyhemoglobin Sodium Potassium Chloride 108.8 H Carbon Dioxide 17 L BUN 26 H Creatinine 1.9 H Glucose 141 H POC Glucose Calcium Phosphorus Magnesium Iron TIBC Ferritin Total Bilirubin AST ALT Lactate Dehydrogenase Total Creatine Kinase Troponin T 0.503 H* C-Reactive Protein Albumin 3.1 L Urine WBC (Auto) Urine Creatinine Urine Total Protein Complement C3 Coronavirus (PCR) Hepatitis C Antibody Crossmatch 05/16/21 05/17/21 05/17/21 18:40 00:02 04:52 WBC RBC Hgb 8.8 L Hct 28.5 L D MCV MCHC RDW Lymph % (Auto) [place] % (Auto) Lymph # (Auto) [place] # (Auto) Seg Neutrophils % Seg Neuts % (Manual) Lymphocytes % (Manual) Monocytes % (Manual) Seg Neutrophils # Seg Neutrophils # Man Lymphocytes # (Manual) Monocytes # (Manual) PT APTT D-Dimer Heparin Anti-Xa Level ABG pH ABG pO2 ABG HCO3 ABG O2 Saturation ABG Base Excess ABG Hemoglobin Oxyhemoglobin Sodium Potassium Chloride Carbon Dioxide BUN Creatinine Glucose POC Glucose 114 H Calcium Phosphorus Magnesium Iron TIBC Ferritin Total Bilirubin AST ALT Lactate Dehydrogenase Total Creatine Kinase Troponin T 0.400 H* D C-Reactive Protein Albumin Urine WBC (Auto) Urine Creatinine Urine Total Protein Complement C3 Coronavirus (PCR) Hepatitis C Antibody Crossmatch 05/17/21 05/17/21 05/17/21 04:52 05:15 06:50 WBC RBC Hgb Hct MCV MCHC RDW Lymph % (Auto) [place] % (Auto) Lymph # (Auto) [place] # (Auto) Seg Neutrophils % Seg Neuts % (Manual) Lymphocytes % (Manual) Monocytes % (Manual) Seg Neutrophils # Seg Neutrophils # Man Lymphocytes # (Manual) Monocytes # (Manual) PT APTT D-Dimer Heparin Anti-Xa Level ABG pH ABG pO2 193.7 H ABG HCO3 27.7 H ABG O2 Saturation 99.2 H ABG Base Excess 3.4 H ABG Hemoglobin 9.2 L Oxyhemoglobin Sodium 146 H Potassium Chloride 110.3 H Carbon Dioxide BUN 33 H Creatinine 2.3 H Glucose 120 H POC Glucose 109 H Calcium Phosphorus Magnesium Iron TIBC Ferritin Total Bilirubin AST ALT Lactate Dehydrogenase Total Creatine Kinase Troponin T C-Reactive Protein Albumin Urine WBC (Auto) Urine Creatinine Urine Total Protein Complement C3 Coronavirus (PCR) Hepatitis C Antibody Crossmatch 05/17/21 05/17/21 05/17/21 10:30 11:33 15:35 WBC RBC Hgb Hct MCV MCHC RDW Lymph % (Auto) [place] % (Auto) Lymph # (Auto) [place] # (Auto) Seg Neutrophils % Seg Neuts % (Manual) Lymphocytes % (Manual) Monocytes % (Manual) Seg Neutrophils # Seg Neutrophils # Man Lymphocytes # (Manual) Monocytes # (Manual) PT APTT D-Dimer Heparin Anti-Xa Level ABG pH 7.457 H ABG pO2 162.5 H 103.7 H ABG HCO3 27.7 H 27.5 H ABG O2 Saturation ABG Base Excess 3.6 H ABG Hemoglobin 10.1 L 11.5 L Oxyhemoglobin Sodium Potassium Chloride Carbon Dioxide BUN Creatinine Glucose POC Glucose 122 H Calcium Phosphorus Magnesium Iron TIBC Ferritin Total Bilirubin AST ALT Lactate Dehydrogenase Total Creatine Kinase Troponin T C-Reactive Protein Albumin Urine WBC (Auto) Urine Creatinine Urine Total Protein Complement C3 Coronavirus (PCR) Hepatitis C Antibody Crossmatch 05/17/21 05/17/21 05/17/21 16:21 18:18 23:29 WBC RBC Hgb 9.6 L Hct 30.3 L MCV MCHC RDW Lymph % (Auto) [place] % (Auto) Lymph # (Auto) [place] # (Auto) Seg Neutrophils % Seg Neuts % (Manual) Lymphocytes % (Manual) Monocytes % (Manual) Seg Neutrophils # Seg Neutrophils # Man Lymphocytes # (Manual) Monocytes # (Manual) PT APTT D-Dimer Heparin Anti-Xa Level ABG pH ABG pO2 ABG HCO3 ABG O2 Saturation ABG Base Excess ABG Hemoglobin Oxyhemoglobin Sodium Potassium Chloride Carbon Dioxide BUN Creatinine Glucose POC Glucose 133 H 111 H Calcium Phosphorus Magnesium Iron TIBC Ferritin Total Bilirubin AST ALT Lactate Dehydrogenase Total Creatine Kinase Troponin T C-Reactive Protein Albumin Urine WBC (Auto) Urine Creatinine Urine Total Protein Complement C3 Coronavirus (PCR) Hepatitis C Antibody Crossmatch 05/18/21 05/18/21 05/18/21 04:15 04:15 05:01 WBC 16.8 H RBC 3.03 L Hgb 8.9 L Hct 28.7 L MCV 95 H MCHC 31 L RDW 16.4 H Lymph % (Auto) [place] % (Auto) Lymph # (Auto) [place] # (Auto) Seg Neutrophils % Seg Neuts % (Manual) Lymphocytes % (Manual) Monocytes % (Manual) Seg Neutrophils # Seg Neutrophils # Man Lymphocytes # (Manual) Monocytes # (Manual) PT APTT D-Dimer Heparin Anti-Xa Level ABG pH ABG pO2 ABG HCO3 ABG O2 Saturation ABG Base Excess ABG Hemoglobin Oxyhemoglobin Sodium Potassium Chloride Carbon Dioxide BUN 40 H Creatinine 2.1 H Glucose 115 H POC Glucose 113 H Calcium Phosphorus Magnesium Iron TIBC Ferritin Total Bilirubin AST ALT Lactate Dehydrogenase Total Creatine Kinase Troponin T C-Reactive Protein Albumin Urine WBC (Auto) Urine Creatinine Urine Total Protein Complement C3 Coronavirus (PCR) Hepatitis C Antibody Crossmatch 05/18/21 05/18/21 05/19/21 11:18 12:50 05:23 WBC 18.5 H RBC 3.31 L Hgb 9.9 L Hct 31.1 L MCV MCHC RDW 16.9 H Lymph % (Auto) [place] % (Auto) Lymph # (Auto) [place] # (Auto) Seg Neutrophils % Seg Neuts % (Manual) Lymphocytes % (Manual) Monocytes % (Manual) Seg Neutrophils # Seg Neutrophils # Man Lymphocytes # (Manual) Monocytes # (Manual) PT APTT D-Dimer Heparin Anti-Xa Level ABG pH ABG pO2 79.6 L ABG HCO3 28.0 H ABG O2 Saturation ABG Base Excess 3.3 H ABG Hemoglobin 6.2 L Oxyhemoglobin Sodium Potassium Chloride Carbon Dioxide BUN Creatinine Glucose POC Glucose 129 H Calcium Phosphorus Magnesium Iron TIBC Ferritin Total Bilirubin AST ALT Lactate Dehydrogenase Total Creatine Kinase Troponin T C-Reactive Protein Albumin Urine WBC (Auto) Urine Creatinine Urine Total Protein Complement C3 Coronavirus (PCR) Hepatitis C Antibody Crossmatch 05/19/21 05/19/21 05/19/21 05:23 05:23 11:24 WBC RBC Hgb Hct MCV MCHC RDW Lymph % (Auto) [place] % (Auto) Lymph # (Auto) [place] # (Auto) Seg Neutrophils % Seg Neuts % (Manual) Lymphocytes % (Manual) Monocytes % (Manual) Seg Neutrophils # Seg Neutrophils # Man Lymphocytes # (Manual) Monocytes # (Manual) PT APTT D-Dimer Heparin Anti-Xa Level ABG pH ABG pO2 ABG HCO3 ABG O2 Saturation ABG Base Excess ABG Hemoglobin Oxyhemoglobin Sodium Potassium Chloride Carbon Dioxide BUN 35 H 34 H Creatinine 2.0 H 2.1 H Glucose POC Glucose 111 H Calcium Phosphorus Magnesium Iron TIBC Ferritin Total Bilirubin AST ALT Lactate Dehydrogenase Total Creatine Kinase Troponin T C-Reactive Protein Albumin Urine WBC (Auto) Urine Creatinine Urine Total Protein Complement C3 Coronavirus (PCR) Hepatitis C Antibody Crossmatch 05/19/21 05/19/21 05/19/21 16:33 19:36 23:47 WBC RBC Hgb Hct MCV MCHC RDW Lymph % (Auto) [place] % (Auto) Lymph # (Auto) [place] # (Auto) Seg Neutrophils % Seg Neuts % (Manual) Lymphocytes % (Manual) Monocytes % (Manual) Seg Neutrophils # Seg Neutrophils # Man Lymphocytes # (Manual) Monocytes # (Manual) PT APTT 72.5 H* D-Dimer Heparin Anti-Xa Level ABG pH ABG pO2 ABG HCO3 ABG O2 Saturation ABG Base Excess ABG Hemoglobin Oxyhemoglobin Sodium Potassium Chloride Carbon Dioxide BUN Creatinine Glucose POC Glucose 131 H 122 H Calcium Phosphorus Magnesium Iron TIBC Ferritin Total Bilirubin AST ALT Lactate Dehydrogenase Total Creatine Kinase Troponin T C-Reactive Protein Albumin Urine WBC (Auto) Urine Creatinine Urine Total Protein Complement C3 Coronavirus (PCR) Hepatitis C Antibody Crossmatch 05/20/21 05/20/21 05/20/21 05:14 05:14 06:12 WBC 19.7 H RBC 3.19 L Hgb 9.5 L Hct 29.9 L MCV MCHC RDW 17.3 H Lymph % (Auto) [place] % (Auto) Lymph # (Auto) [place] # (Auto) Seg Neutrophils % Seg Neuts % (Manual) Lymphocytes % (Manual) Monocytes % (Manual) Seg Neutrophils # Seg Neutrophils # Man Lymphocytes # (Manual) Monocytes # (Manual) PT APTT D-Dimer Heparin Anti-Xa Level ABG pH ABG pO2 ABG HCO3 ABG O2 Saturation ABG Base Excess ABG Hemoglobin Oxyhemoglobin Sodium Potassium Chloride Carbon Dioxide BUN 31 H Creatinine 2.1 H Glucose 130 H POC Glucose 120 H Calcium Phosphorus Magnesium Iron TIBC Ferritin Total Bilirubin AST ALT Lactate Dehydrogenase Total Creatine Kinase Troponin T C-Reactive Protein Albumin Urine WBC (Auto) Urine Creatinine Urine Total Protein Complement C3 Coronavirus (PCR) Hepatitis C Antibody Crossmatch 05/20/21 05/20/21 05/20/21 11:10 18:12 23:55 WBC RBC Hgb Hct MCV MCHC RDW Lymph % (Auto) [place] % (Auto) Lymph # (Auto) [place] # (Auto) Seg Neutrophils % Seg Neuts % (Manual) Lymphocytes % (Manual) Monocytes % (Manual) Seg Neutrophils # Seg Neutrophils # Man Lymphocytes # (Manual) Monocytes # (Manual) PT APTT D-Dimer Heparin Anti-Xa Level ABG pH ABG pO2 ABG HCO3 ABG O2 Saturation ABG Base Excess ABG Hemoglobin Oxyhemoglobin Sodium Potassium Chloride Carbon Dioxide BUN Creatinine Glucose POC Glucose 152 H 137 H 146 H Calcium Phosphorus Magnesium Iron TIBC Ferritin Total Bilirubin AST ALT Lactate Dehydrogenase Total Creatine Kinase Troponin T C-Reactive Protein Albumin Urine WBC (Auto) Urine Creatinine Urine Total Protein Complement C3 Coronavirus (PCR) Hepatitis C Antibody Crossmatch 05/21/21 05/21/21 05/21/21 03:12 03:12 05:53 WBC 26.2 H RBC 2.58 L Hgb 7.7 L Hct 24.2 L MCV MCHC RDW 17.8 H Lymph % (Auto) [place] % (Auto) Lymph # (Auto) [place] # (Auto) Seg Neutrophils % Seg Neuts % (Manual) Lymphocytes % (Manual) Monocytes % (Manual) Seg Neutrophils # Seg Neutrophils # Man Lymphocytes # (Manual) Monocytes # (Manual) PT APTT D-Dimer Heparin Anti-Xa Level ABG pH ABG pO2 ABG HCO3 ABG O2 Saturation ABG Base Excess ABG Hemoglobin Oxyhemoglobin Sodium 133 L Potassium 5.7 H D Chloride Carbon Dioxide 21 L BUN 49 H Creatinine 2.6 H Glucose 160 H POC Glucose 118 H Calcium Phosphorus Magnesium Iron TIBC Ferritin Total Bilirubin AST ALT Lactate Dehydrogenase Total Creatine Kinase Troponin T C-Reactive Protein Albumin Urine WBC (Auto) Urine Creatinine Urine Total Protein Complement C3 Coronavirus (PCR) Hepatitis C Antibody Crossmatch 05/21/21 05/22/21 05/22/21 18:00 00:13 05:05 WBC RBC Hgb Hct MCV MCHC RDW Lymph % (Auto) [place] % (Auto) Lymph # (Auto) [place] # (Auto) Seg Neutrophils % Seg Neuts % (Manual) Lymphocytes % (Manual) Monocytes % (Manual) Seg Neutrophils # Seg Neutrophils # Man Lymphocytes # (Manual) Monocytes # (Manual) PT APTT D-Dimer Heparin Anti-Xa Level ABG pH 7.500 H ABG pO2 56.6 L ABG HCO3 ABG O2 Saturation ABG Base Excess ABG Hemoglobin 6.7 L Oxyhemoglobin 94.8 L Sodium 136 L Potassium 5.2 H Chloride Carbon Dioxide BUN 59 H Creatinine 2.6 H Glucose 138 H POC Glucose 109 H Calcium Phosphorus Magnesium Iron TIBC Ferritin Total Bilirubin AST ALT Lactate Dehydrogenase Total Creatine Kinase Troponin T C-Reactive Protein Albumin Urine WBC (Auto) Urine Creatinine Urine Total Protein Complement C3 Coronavirus (PCR) Hepatitis C Antibody Crossmatch 05/22/21 05/22/21 05/22/21 06:07 11:49 16:33 WBC RBC Hgb Hct MCV MCHC RDW Lymph % (Auto) [place] % (Auto) Lymph # (Auto) [place] # (Auto) Seg Neutrophils % Seg Neuts % (Manual) Lymphocytes % (Manual) Monocytes % (Manual) Seg Neutrophils # Seg Neutrophils # Man Lymphocytes # (Manual) Monocytes # (Manual) PT APTT D-Dimer Heparin Anti-Xa Level ABG pH ABG pO2 ABG HCO3 ABG O2 Saturation ABG Base Excess ABG Hemoglobin Oxyhemoglobin Sodium Potassium Chloride Carbon Dioxide BUN Creatinine Glucose POC Glucose 110 H 117 H 119 H Calcium Phosphorus Magnesium Iron TIBC Ferritin Total Bilirubin AST ALT Lactate Dehydrogenase Total Creatine Kinase Troponin T C-Reactive Protein Albumin Urine WBC (Auto) Urine Creatinine Urine Total Protein Complement C3 Coronavirus (PCR) Hepatitis C Antibody Crossmatch 05/23/21 05/23/21 05/23/21 04:48 04:48 07:12 WBC 21.1 H RBC 2.03 L Hgb 6.2 L Hct 19.4 L* MCV 96 H MCHC RDW 17.5 H Lymph % (Auto) [place] % (Auto) Lymph # (Auto) [place] # (Auto) Seg Neutrophils % Seg Neuts % (Manual) Lymphocytes % (Manual) Monocytes % (Manual) Seg Neutrophils # Seg Neutrophils # Man Lymphocytes # (Manual) Monocytes # (Manual) PT APTT D-Dimer Heparin Anti-Xa Level ABG pH ABG pO2 ABG HCO3 ABG O2 Saturation ABG Base Excess ABG Hemoglobin Oxyhemoglobin Sodium Potassium Chloride Carbon Dioxide BUN 62 H Creatinine 2.8 H Glucose 110 H POC Glucose Calcium Phosphorus Magnesium Iron TIBC Ferritin Total Bilirubin AST ALT Lactate Dehydrogenase Total Creatine Kinase Troponin T C-Reactive Protein Albumin Urine WBC (Auto) Urine Creatinine Urine Total Protein Complement C3 Coronavirus (PCR) Hepatitis C Antibody Crossmatch See Detail 05/23/21 05/23/21 05/23/21 11:19 14:15 16:12 WBC RBC Hgb Hct MCV MCHC RDW Lymph % (Auto) [place] % (Auto) Lymph # (Auto) [place] # (Auto) Seg Neutrophils % Seg Neuts % (Manual) Lymphocytes % (Manual) Monocytes % (Manual) Seg Neutrophils # Seg Neutrophils # Man Lymphocytes # (Manual) Monocytes # (Manual) PT APTT D-Dimer Heparin Anti-Xa Level ABG pH ABG pO2 294.7 H ABG HCO3 ABG O2 Saturation 99.5 H ABG Base Excess ABG Hemoglobin 6.5 L Oxyhemoglobin Sodium Potassium Chloride Carbon Dioxide BUN Creatinine Glucose POC Glucose 127 H 120 H Calcium Phosphorus Magnesium Iron TIBC Ferritin Total Bilirubin AST ALT Lactate Dehydrogenase Total Creatine Kinase Troponin T C-Reactive Protein Albumin Urine WBC (Auto) Urine Creatinine Urine Total Protein Complement C3 Coronavirus (PCR) Hepatitis C Antibody Crossmatch 05/23/21 05/23/21 05/23/21 16:30 16:30 18:54 WBC 21.7 H RBC 2.40 L Hgb 7.1 L Hct 22.9 L MCV 96 H MCHC 31 L RDW 16.8 H Lymph % (Auto) [place] % (Auto) Lymph # (Auto) [place] # (Auto) Seg Neutrophils % Seg Neuts % (Manual) Lymphocytes % (Manual) Monocytes % (Manual) Seg Neutrophils # Seg Neutrophils # Man Lymphocytes # (Manual) Monocytes # (Manual) PT APTT D-Dimer Heparin Anti-Xa Level ABG pH ABG pO2 ABG HCO3 ABG O2 Saturation ABG Base Excess ABG Hemoglobin Oxyhemoglobin Sodium Potassium Chloride Carbon Dioxide BUN Creatinine Glucose POC Glucose Calcium Phosphorus Magnesium Iron TIBC Ferritin Total Bilirubin AST ALT Lactate Dehydrogenase Total Creatine Kinase Troponin T C-Reactive Protein Albumin Urine WBC (Auto) 12.0 H Urine Creatinine 100.1 H Urine Total Protein Complement C3 Coronavirus (PCR) Hepatitis C Antibody Crossmatch 05/23/21 05/24/21 05/24/21 Unknown 00:11 04:11 WBC 16.7 H RBC 2.19 L Hgb 6.4 L Hct 20.5 L MCV MCHC 31 L RDW 17.0 H Lymph % (Auto) [place] % (Auto) Lymph # (Auto) [place] # (Auto) Seg Neutrophils % Seg Neuts % (Manual) Lymphocytes % (Manual) Monocytes % (Manual) Seg Neutrophils # Seg Neutrophils # Man Lymphocytes # (Manual) Monocytes # (Manual) PT APTT D-Dimer Heparin Anti-Xa Level ABG pH ABG pO2 ABG HCO3 ABG O2 Saturation ABG Base Excess ABG Hemoglobin Oxyhemoglobin Sodium Potassium Chloride Carbon Dioxide BUN Creatinine Glucose POC Glucose 110 H Calcium Phosphorus Magnesium Iron 10 L TIBC 151 L Ferritin Total Bilirubin AST ALT Lactate Dehydrogenase 311 H Total Creatine Kinase Troponin T C-Reactive Protein Albumin Urine WBC (Auto) Urine Creatinine Urine Total Protein Complement C3 Coronavirus (PCR) Hepatitis C Antibody Crossmatch 05/24/21 05/24/21 05/24/21 04:11 05:10 09:55 WBC RBC Hgb Hct MCV MCHC RDW Lymph % (Auto) [place] % (Auto) Lymph # (Auto) [place] # (Auto) Seg Neutrophils % Seg Neuts % (Manual) Lymphocytes % (Manual) Monocytes % (Manual) Seg Neutrophils # Seg Neutrophils # Man Lymphocytes # (Manual) Monocytes # (Manual) PT APTT D-Dimer Heparin Anti-Xa Level ABG pH ABG pO2 141.9 H ABG HCO3 ABG O2 Saturation ABG Base Excess ABG Hemoglobin 6.5 L Oxyhemoglobin Sodium Potassium Chloride Carbon Dioxide BUN 78 H Creatinine 2.8 H Glucose 119 H POC Glucose 108 H Calcium Phosphorus 5.30 H Magnesium 2.60 H Iron TIBC Ferritin Total Bilirubin AST 152 H ALT 125 H Lactate Dehydrogenase Total Creatine Kinase Troponin T C-Reactive Protein Albumin 2.5 L Urine WBC (Auto) Urine Creatinine Urine Total Protein Complement C3 Coronavirus (PCR) Hepatitis C Antibody Crossmatch Chest x-ray: image reviewed (ETT in good position; R lung small volume platelike atelectasis) Allied health notes reviewed: nursing
--- NOTE | 2021-05-24 14:27 | Progress Note ---
Assessment and Plan Patient is a 56-year-old male with a past medical history of hypertension, paroxysmal SVT, medical noncompliance, smoking, substance abuse who presented to the ED with a complaint of shortness of breath and dyspnea on exertion x1 month however with significantly worsening symptoms since yesterday. NSTEMI Hypertensive Emergency COVID-19 Acute Bilateral DVT Afib YE Hepatitis C SOB Medical noncompliance Polysubstance abuse-patient tested positive for methamphetamines Anemia Echo 05/04/2021-EF 35 to 40%. Moderate concentric LVH. Moderate global hypokinesis of left ventricle. Mild mitral regurgitation. Mild pulmonary hypertension. Echocardiogram reviewed (08/27/2020): LVEF is 50 to 55%. Mild to moderate concentric LVF. Severe diastolic dysfunction is present (restrictive filling). Right ventricle is mildly hypokinetic. RVSP is 48 mmHg. No valvular ab normalities. Plan: Continue asa and statin Continue metoprolol and hydralizine No BETHEL/ARB due to elevated creatinine Recommend holding Eliquis due to anemia with Hgb<7 Recommend transfusing PRBC if Hgb<7 Cardiac status otherwise stable will see as needed Patient seen in conjunction with Dr. Rizvi who agrees with this plan of care 30 minutes of critical care time spent in care coordination of patient - Patient Problems (1) ARF (acute renal failure) Current Visit: Yes Status: Acute (2) Elevated d-dimer Current Visit: Yes Status: Acute (3) LFT elevation Current Visit: Yes Status: Acute (4) NSTEMI (non-ST elevated myocardial infarction) Current Visit: Yes Status: Acute (5) Polysubstance abuse Current Visit: Yes Status: Acute (6) SOB (shortness of breath) Current Visit: Yes Status: Acute (7) Hypertension Current Visit: Yes Status: Chronic (8) Noncompliance with medication regimen Current Visit: Yes Status: Chronic Subjective Date of service: 05/24/21 Principal diagnosis: AHRF; COVID-19 infection; NSTEMI; YE; HFrEF (35-40%); Polysubstance abuse Interval history: Patient reintubated due to increased work of breathing Patient sinus rhythm 70s on monitor Objective Vital Signs Temp Pulse Pulse Resp BP Pulse Ox 05/24/21 13:58 98.9 F 78 24 103/67 100 05/24/21 13:43 99.3 F 79 24 103/68 100 05/24/21 13:41 79 24 103/68 100 05/24/21 13:30 78 24 103/68 100 05/24/21 13:21 79 24 110/71 100 05/24/21 13:11 78 23 110/71 100 05/24/21 13:00 78 24 110/71 100 05/24/21 12:51 77 28 H 103/69 100 05/24/21 12:41 77 23 103/69 100 05/24/21 12:30 76 23 103/69 100 05/24/21 12:21 76 22 94/64 100 05/24/21 12:11 77 25 H 94/64 100 05/24/21 12:00 75 24 94/64 100 05/24/21 11:51 74 24 94/63 100 05/24/21 11:50 73 97/61 100 05/24/21 11:41 76 23 94/63 100 05/24/21 11:30 74 22 94/63 100 05/24/21 11:21 75 25 H 97/61 100 05/24/21 11:00 73 28 H 97/61 100 05/24/21 10:30 73 21 95/66 100 05/24/21 10:01 78 21 108/73 100 05/24/21 09:50 80 139/91 05/24/21 09:45 82 22 139/91 100 05/24/21 09:30 80 21 136/91 100 05/24/21 09:25 80 133/87 100 05/24/21 09:15 80 20 133/87 100 05/24/21 09:00 82 23 143/92 100 05/24/21 08:45 80 21 138/90 100 05/24/21 08:30 84 20 134/92 99 05/24/21 08:15 81 21 134/88 100 05/24/21 08:00 99.6 F 79 79 20 138/88 100 05/24/21 07:45 78 21 129/86 100 05/24/21 07:30 80 23 135/89 100 05/24/21 07:15 79 19 129/87 100 05/24/21 07:00 81 23 138/93 100 05/24/21 06:45 81 23 129/86 100 05/24/21 06:30 81 22 125/86 100 05/24/21 06:15 81 21 100 02/08/22 06:00 81 21 126/86 100 05/24/21 05:45 81 21 122/85 100 05/24/21 05:43 81 131/88 05/24/21 05:30 84 16 131/88 100 05/24/21 05:15 78 21 100 05/24/21 05:00 83 24 145/95 100 05/24/21 04:45 83 23 139/88 100 05/24/21 04:30 83 20 135/89 100 05/24/21 04:15 82 21 134/87 100 05/24/21 04:10 82 129/85 100 05/24/21 04:00 99.4 F 82 22 129/85 100 05/24/21 03:45 84 21 137/88 100 05/24/21 03:30 82 21 131/93 100 05/24/21 03:15 83 19 132/92 100 05/24/21 03:00 83 22 135/91 100 05/24/21 02:45 83 23 133/92 100 05/24/21 02:30 83 24 134/91 100 05/24/21 02:15 83 20 129/95 100 05/24/21 02:00 84 25 H 131/93 100 05/24/21 01:45 83 21 135/90 100 05/24/21 01:30 83 19 127/89 100 05/24/21 01:15 83 19 137/91 100 05/24/21 01:00 83 22 132/91 100 05/24/21 00:45 84 20 133/90 100 05/24/21 00:30 84 23 130/90 100 05/24/21 00:15 84 22 137/91 100 05/24/21 00:04 84 141/97 100 05/24/21 00:01 84 23 141/97 100 05/24/21 00:00 99.8 F H 84 84 24 141/97 100 05/23/21 23:45 83 18 137/96 100 05/23/21 23:30 83 21 130/96 100 05/23/21 23:15 82 23 121/89 100 05/23/21 23:00 83 26 H 131/91 100 05/23/21 22:45 84 31 H 117/82 100 05/23/21 22:30 82 22 128/88 100 05/23/21 22:15 80 21 130/94 100 05/23/21 22:00 81 21 108/73 100 05/23/21 21:45 82 25 H 101/74 100 05/23/21 21:30 82 23 103/71 100 05/23/21 21:15 83 25 H 101/69 100 05/23/21 21:00 83 22 101/71 100 05/23/21 20:45 86 21 102/74 100 05/23/21 20:30 85 22 103/72 100 05/23/21 20:16 82 98/70 100 05/23/21 20:15 84 28 H 83/58 100 05/23/21 20:00 81 84 19 83/58 100 05/23/21 19:50 99.5 F 05/23/21 19:45 82 26 H 87/55 100 05/23/21 19:37 87/58 05/23/21 19:30 82 28 H 87/58 100 05/23/21 19:15 81 25 H 90/60 100 05/23/21 19:00 81 23 95/63 100 05/23/21 18:45 81 24 86/55 100 05/23/21 18:31 81 20 86/55 100 05/23/21 18:01 82 23 93/53 100 05/23/21 17:16 86 113/83 100 05/23/21 17:00 84 26 H 103/73 100 05/23/21 16:40 98.6 F 05/23/21 16:00 82 82 22 90/64 100 05/23/21 15:30 99.8 F H 85 22 100 05/23/21 15:01 87 26 H 100 05/23/21 14:30 84 105/67 100 - Physical Examination General: Other (sedated) HEENT: Positive: PERRL Neck: Positive: trachea midline Lungs: Positive: Ventilated Respirations Neuro: Positive: Other (sedated) Abdomen: Positive: Soft Skin: Negative: Rash, Suspicious Lesions, Ulceration Extremities: Absent: edema - Labs and Meds Cardiac Enzymes 05/23/21 05/24/21 Range/Units Unknown 04:11 AST 152 H (5-40) units/L Lactate Dehydrogenase 311 H (91-180) units/L CBC 05/23/21 05/24/21 Range/Units 18:54 04:11 WBC 21.7 H 16.7 H (4.5-11.0) K/mm3 RBC 2.40 L 2.19 L (3.65-5.03) M/mm3 Hgb 7.1 L 6.4 L (11.8-15.2) gm/dl Hct 22.9 L 20.5 L (35.5-45.6) % Plt Count 321 320 (140-440) K/mm3 Comprehensive Metabolic Panel 05/24/21 Range/Units 04:11 Sodium 144 (137-145) mmol/L Potassium 4.2 (3.6-5.0) mmol/L Chloride 106.3 (98-107) mmol/L Carbon Dioxide 23 (22-30) mmol/L BUN 78 H (9-20) mg/dL Creatinine 2.8 H (0.8-1.3) mg/dL Glucose 119 H (75-100) mg/dL Calcium 8.6 (8.4-10.2) mg/dL AST 152 H (5-40) units/L ALT 125 H (7-56) units/L Alkaline Phosphatase 72 (35-129) units/L Total Protein 6.6 (6.3-8.2) g/dL Albumin 2.5 L (3.9-5) g/dL - Imaging and Cardiology EKG: report reviewed, image reviewed Echo: report reviewed - Telemetry EKG Rhythm: Sinus Rhythm - EKG Sinus rhythms and dysrhythmias: sinus rhythm Ventricular dysrhythmias: ventricular premature com Chamber hypertrophy or enlargement: left ventricular hypertro - Allied health notes Allied health notes reviewed: nursing
--- NOTE | 2021-05-24 15:02 | XRay Report ---
XR abdomen 1V ap INDICATION / CLINICAL INFORMATION: NGT placemt. COMPARISON: None available. TECHNIQUE: Single image Supine AP abdomen. FINDINGS: TUBES / LINES: Weighted feeding tube terminates mid fundus BOWEL GAS PATTERN: No significant abnormality. FREE AIR / EXTRALUMINAL GAS: None seen. ADDITIONAL FINDINGS: No significant additional findings. IMPRESSION: 1. Interval advancement of weighted feeding tube tip within the mid fundus. Signer Name: Conor Rangel II, MD Signed: 05/23/2021 4:33 AM Workstation Name: [email or web address]
--- NOTE | 2021-05-24 15:02 | XRay Report ---
XR abdomen 1V ap INDICATION / CLINICAL INFORMATION: ngt placement. COMPARISON: Supine AP abdomen 05/05/2021 TECHNIQUE: Single image Supine AP abdomen. FINDINGS: TUBES / LINES: Weighted feeding tube terminates just through the GE junction. Advancement by 10 cm co uld be considered. BOWEL GAS PATTERN: No significant abnormality. FREE AIR / EXTRALUMINAL GAS: None seen. ADDITIONAL FINDINGS: No significant additional findings. IMPRESSION: 1. Advancement of weighted feeding tube could be considered for optimal positioning. Signer Name: Conor Rangel II, MD Signed: 05/23/2021 12:44 AM Workstation Name: [id number]
--- NOTE | 2021-05-24 15:24 | Progress Note ---
Assessment and Plan Cultures: Blood culture 05/07/2021 no growth so far Blood culture 05/10/2021 no growth so far Sputum culture 05/16/2021 Enterobacter A/P: 56 yo M PMHx smoking, A. fib, HTN, medication non-compliance admitted with #Severe COVID-19 pneumonia: Patient presented with a week of symptoms, chest x- ray with diffuse bilateral infiltrates, admission O2 sats decreased on room air. Inflammatory markers elevated. Was not a candidate for Remdesivir. Completed steroids. #Acute hypoxemic respiratory failure: secondary to COVID-19 infection. On BiPAP #VAP: Cultures with Enterobacter. #YE: Renally dose medications. #Acute anemia Recommendations: -Completed steroids -continue IV ertapenem renally adjusted -anemia work up per primary/GI -Poor prognosis -does not need to be on isolation for COVID-19 Rhonda Mooney MD, FACP, [facility] O: [phone] F: [phone] Subjective Date of service: 05/24/21 Principal diagnosis: AHRF; COVID-19 infection; NSTEMI; YE; HFrEF (35-40%); Polysubstance abuse Interval history: No fever. Now intubated. Remains on the vent. On Protonix drip. Objective - Exam Narrative Exam: Physical Exam: Constitutional: sedated, intubated, on the vent Head, Ears, Nose: Normocephalic, atraumatic. External ears, nose normal Eyes: Conjunctivae/corneas clear. No icterus. No ptosis. Neck: intubated Oral: intubated Cardiovascular: S1, S2 + Respiratory: AE fair bilaterally and equal GI: Soft, bowel sounds + Musculoskeletal: No pedal edema, no cyanosis. Skin: No rash or abscess Hem/Lymphatic: No palpable cervical or supraclavicular nodes. No lymphangitis Psych: no agitation Neurological: sedated, intubated, on the vent, exam limited - Constitutional Vitals: Vital Signs Temp Pulse Resp BP Pulse Ox 98.9 F 78 24 103/67 100 05/24/21 13:58 05/24/21 13:58 05/24/21 13:58 05/24/21 13:58 05/24/21 13:58 Temperature -Last 24 Hours Temperature 98.9 F Temperature 99.3 F Temperature 99.6 F Temperature 99.4 F Temperature 99.8 F Temperature 99.5 F Temperature 98.6 F Temperature 99.8 F - Labs CBC & Chem 7: 05/24/21 04:11 05/24/21 04:11 Labs: Abnormal lab results 05/23/21 05/23/21 05/23/21 Range/Units 07:12 14:15 16:12 WBC (4.5-11.0) K/mm3 RBC (3.65-5.03) M/mm3 Hgb (11.8-15.2) gm/dl Hct (35.5-45.6) % MCV (84-94) fl MCHC (32-34) % RDW (13.2-15.2) % ABG pO2 294.7 H (80.0-90.0) mm Hg ABG O2 Saturation 99.5 H (95.0-99.0) % ABG Hemoglobin 6.5 L (14.0-18.0) gm/dl BUN (9-20) mg/dL Creatinine (0.8-1.3) mg/dL Glucose (75-100) mg/dL POC Glucose 120 H (70-105) mg/dL Phosphorus (2.5-4.5) mg/dL Magnesium (1.7-2.3) mg/dL Iron (49-181) ug/dL TIBC (250-450) mcg/dL AST (5-40) units/L ALT (7-56) units/L Lactate Dehydrogenase (91-180) units/L Albumin (3.9-5) g/dL Urine WBC (Auto) (0.0-6.0) /HPF Urine Creatinine (0.1-20.0) mg/dL Crossmatch See Detail 05/23/21 05/23/21 05/23/21 Range/Units 16:30 16:30 18:54 WBC 21.7 H (4.5-11.0) K/mm3 RBC 2.40 L (3.65-5.03) M/mm3 Hgb 7.1 L (11.8-15.2) gm/dl Hct 22.9 L (35.5-45.6) % MCV 96 H (84-94) fl MCHC 31 L (32-34) % RDW 16.8 H (13.2-15.2) % ABG pO2 (80.0-90.0) mm Hg ABG O2 Saturation (95.0-99.0) % ABG Hemoglobin (14.0-18.0) gm/dl BUN (9-20) mg/dL Creatinine (0.8-1.3) mg/dL Glucose (75-100) mg/dL POC Glucose (70-105) mg/dL Phosphorus (2.5-4.5) mg/dL Magnesium (1.7-2.3) mg/dL Iron (49-181) ug/dL TIBC (250-450) mcg/dL AST (5-40) units/L ALT (7-56) units/L Lactate Dehydrogenase (91-180) units/L Albumin (3.9-5) g/dL Urine WBC (Auto) 12.0 H (0.0-6.0) /HPF Urine Creatinine 100.1 H (0.1-20.0) mg/dL Crossmatch 05/23/21 05/24/21 05/24/21 Range/Units Unknown 00:11 04:11 WBC 16.7 H (4.5-11.0) K/mm3 RBC 2.19 L (3.65-5.03) M/mm3 Hgb 6.4 L (11.8-15.2) gm/dl Hct 20.5 L (35.5-45.6) % MCV (84-94) fl MCHC 31 L (32-34) % RDW 17.0 H (13.2-15.2) % ABG pO2 (80.0-90.0) mm Hg ABG O2 Saturation (95.0-99.0) % ABG Hemoglobin (14.0-18.0) gm/dl BUN (9-20) mg/dL Creatinine (0.8-1.3) mg/dL Glucose (75-100) mg/dL POC Glucose 110 H (70-105) mg/dL Phosphorus (2.5-4.5) mg/dL Magnesium (1.7-2.3) mg/dL Iron 10 L (49-181) ug/dL TIBC 151 L (250-450) mcg/dL AST (5-40) units/L ALT (7-56) units/L Lactate Dehydrogenase 311 H (91-180) units/L Albumin (3.9-5) g/dL Urine WBC (Auto) (0.0-6.0) /HPF Urine Creatinine (0.1-20.0) mg/dL Crossmatch 05/24/21 05/24/21 05/24/21 Range/Units 04:11 05:10 09:55 WBC (4.5-11.0) K/mm3 RBC (3.65-5.03) M/mm3 Hgb (11.8-15.2) gm/dl Hct (35.5-45.6) % MCV (84-94) fl MCHC (32-34) % RDW (13.2-15.2) % ABG pO2 141.9 H (80.0-90.0) mm Hg ABG O2 Saturation (95.0-99.0) % ABG Hemoglobin 6.5 L (14.0-18.0) gm/dl BUN 78 H (9-20) mg/dL Creatinine 2.8 H (0.8-1.3) mg/dL Glucose 119 H (75-100) mg/dL POC Glucose 108 H (70-105) mg/dL Phosphorus 5.30 H (2.5-4.5) mg/dL Magnesium 2.60 H (1.7-2.3) mg/dL Iron (49-181) ug/dL TIBC (250-450) mcg/dL AST 152 H (5-40) units/L ALT 125 H (7-56) units/L Lactate Dehydrogenase (91-180) units/L Albumin 2.5 L (3.9-5) g/dL Urine WBC (Auto) (0.0-6.0) /HPF Urine Creatinine (0.1-20.0) mg/dL Crossmatch
[2021-05-24] MEDS: ACETAMINOPHEN 325 MG TAB PO PRN (18:40)
[2021-05-24] MEDS: ERTAPENEM 0.5 GM in SODIUM CHLORIDE 0.9% 50 ML IV SCH (18:40)
[2021-05-24] MEDS: METOPROLOL TARTRATE 25 MG TAB FEEDTUBE SCH (21:46)
[2021-05-25] MEDS: PANTOPRAZOLE 80 MG in SODIUM CHLORIDE 0.9% 100 ML IV SCH ×2 (05:06→13:45)
[2021-05-25 05:13] LABS: Hematocrit 25.6 % (35.5-45.6); Hemoglobin 8.3 gm/dl (11.8-15.2); Mean Corpuscular HGB Conc 33 % (32-34); Mean Corpuscular Volume 92 fl (84-94); Platelet Count 325 K/mm3 (140-440); Red Blood Count 2.78 M/mm3 (3.65-5.03); Red Cell Distribution Width 16.2 % (13.2-15.2)
[2021-05-25 05:25] LABS: INR 1.05 (0.87-1.13)
[2021-05-25 05:27] LABS: Calcium 8.1 mg/dL (8.4-10.2)
[2021-05-25] MEDS: SODIUM CHLORIDE 0.45% 1000 ML 1,000 ML IV SCH ×2 (06:19→13:45)
[2021-05-25] MEDS: ACETAMINOPHEN 325 MG TAB PO PRN ×2 (08:13→20:50)
[2021-05-25] MEDS: chlordiazePOXIDE 25 MG CAP PO SCH ×3 (09:09→20:56)
[2021-05-25] MEDS: METOPROLOL TARTRATE 25 MG TAB FEEDTUBE SCH ×3 (09:10→20:55)
[2021-05-25] MEDS: SENNOSIDES/DOCUSATE SODIUM 8.6/50 MG TAB FEEDTUBE SCH ×2 (09:10→21:00)
[2021-05-25] MEDS: QUEtiapine 100 MG TAB PO SCH ×2 (09:10→21:00)
--- NOTE | 2021-05-25 09:12 | Progress Note ---
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 He is also currently nonoliguric. * Hyponatremia is much improved. Reduce IV fluid. * His urine shows 2+ dipstick protein and 3 RBCs per high-power field. Fractional excretion of sodium is 0.3%. Increase IV fluid. Suspect possible volume depletion. * Hyperkalemia has been corrected. Continue to hold diuretics. * Renal ultrasound reviewed - will need follow up CT once stable * Continue antiHTN medications * Cardiology, ICU input noted * Dose medications for renal function * Avoid potential nephrotoxins * Strict I/O * No indication for renal replacement therapy at this time Subjective Date of service: 05/25/21 Principal diagnosis: AHRF; COVID-19 infection; NSTEMI; YE; HFrEF (35-40%); Polysubstance abuse Interval history: Patient is currently on the ventilator. On 40% FiO2. Oxygen saturation is 1 00%. IV fluid infusing. Merino catheter in place. Objective - Vital Signs Vital signs: Vital Signs - 12hr 05/24/21 05/24/21 05/24/21 21:15 21:30 21:45 Temperature Pulse Rate 83 83 82 Pulse Rate [ From Monitor] Respiratory 26 H 24 26 H Rate Blood Pressure 149/99 155/99 155/99 O2 Sat by Pulse 100 100 100 Oximetry 05/24/21 05/24/21 05/24/21 22:00 22:15 22:31 Temperature Pulse Rate 79 74 72 Pulse Rate [ From Monitor] Respiratory 22 22 22 Rate Blood Pressure 143/94 143/94 122/79 O2 Sat by Pulse 100 100 100 Oximetry 05/24/21 05/24/21 05/24/21 22:45 23:00 23:15 Temperature Pulse Rate 71 72 71 Pulse Rate [ From Monitor] Respiratory 23 22 Rate Blood Pressure 122/79 116/80 116/80 O2 Sat by Pulse 100 100 100 Oximetry 05/24/21 05/24/21 05/24/21 23:21 23:26 23:30 Temperature 99.1 F Pulse Rate 71 71 Pulse Rate [ From Monitor] Respiratory 18 21 Rate Blood Pressure 116/80 120/78 O2 Sat by Pulse 100 100 Oximetry 05/24/21 05/24/21 05/25/21 23:35 23:45 00:00 Temperature 98.0 F Pulse Rate 71 71 70 Pulse Rate [ 78 From Monitor] Respiratory 21 21 Rate Blood Pressure 120/78 120/78 122/83 O2 Sat by Pulse 100 100 100 Oximetry 05/25/21 05/25/21 05/25/21 00:15 00:30 00:45 Temperature Pulse Rate 71 74 73 Pulse Rate [ From Monitor] Respiratory 20 22 Rate Blood Pressure 122/83 124/86 124/86 O2 Sat by Pulse 100 100 100 Oximetry 05/25/21 05/25/21 05/25/21 01:00 01:15 01:30 Temperature Pulse Rate 72 73 72 Pulse Rate [ From Monitor] Respiratory 22 23 Rate Blood Pressure 129/87 129/87 121/82 O2 Sat by Pulse 100 100 100 Oximetry 05/25/21 05/25/21 05/25/21 01:45 02:00 02:15 Temperature Pulse Rate 71 73 76 Pulse Rate [ From Monitor] Respiratory 21 22 21 Rate Blood Pressure 121/82 128/85 128/85 O2 Sat by Pulse 100 100 100 Oximetry 05/25/21 05/25/21 05/25/21 02:30 02:45 03:00 Temperature Pulse Rate 76 77 78 Pulse Rate [ From Monitor] Respiratory 23 24 22 Rate Blood Pressure 135/91 135/91 141/94 O2 Sat by Pulse 100 100 100 Oximetry 05/25/21 05/25/21 05/25/21 03:15 03:19 03:30 Temperature Pulse Rate 77 79 Pulse Rate [ 79 From Monitor] Respiratory 24 25 H 25 H Rate Blood Pressure 141/94 146/98 O2 Sat by Pulse 100 100 100 Oximetry 05/25/21 05/25/21 05/25/21 03:45 04:00 04:15 Temperature 97.6 F Pulse Rate 79 79 81 Pulse Rate [ From Monitor] Respiratory 26 H 23 21 Rate Blood Pressure 146/98 145/93 145/93 O2 Sat by Pulse 100 99 99 Oximetry 05/25/21 05/25/21 05/25/21 04:30 04:45 05:00 Temperature Pulse Rate 81 82 80 Pulse Rate [ From Monitor] Respiratory 20 24 20 Rate Blood Pressure 151/98 151/98 151/94 O2 Sat by Pulse 99 99 99 Oximetry 05/25/21 05/25/21 05/25/21 05:14 05:15 05:30 Temperature Pulse Rate 82 81 83 Pulse Rate [ From Monitor] Respiratory 24 20 Rate Blood Pressure 151/94 151/94 155/98 O2 Sat by Pulse 100 100 99 Oximetry 05/25/21 05/25/21 05/25/21 05:45 06:00 06:15 Temperature Pulse Rate 84 84 85 Pulse Rate [ From Monitor] Respiratory 23 22 23 Rate Blood Pressure 155/98 156/98 156/98 O2 Sat by Pulse 99 99 99 Oximetry 05/25/21 05/25/21 05/25/21 06:30 06:45 07:00 Temperature Pulse Rate 86 84 87 Pulse Rate [ From Monitor] Respiratory 26 H 23 26 H Rate Blood Pressure 163/104 163/104 171/112 O2 Sat by Pulse 99 99 99 Oximetry 05/25/21 05/25/21 05/25/21 07:16 07:30 07:46 Temperature Pulse Rate 88 90 88 Pulse Rate [ From Monitor] Respiratory 22 Rate Blood Pressure 156/98 176/119 176/119 O2 Sat by Pulse 99 99 99 Oximetry 05/25/21 05/25/21 05/25/21 08:00 08:16 08:25 Temperature 101.4 F H Pulse Rate 91 H 90 79 Pulse Rate [ 79 From Monitor] Respiratory 25 H 26 H Rate Blood Pressure 177/120 177/120 172/120 O2 Sat by Pulse 100 99 99 Oximetry - General Appearance General appearance: well-developed, well-nourished, appears stated age, intubated EENT: PERRL, mucous membranes moist Neck: no JVD, no thyromegaly, no carotid bruit, supple Respiratory: Present: Ronchi (Few scattered rhonchi) Cardiology: regular, normal heart rate, S1S2, no murmurs Gastrointestinal: normal, normoactive bowel sounds Integumentary: no rash - Lab 05/25/21 04:25 05/25/21 04:25 Most recent lab results ABG pH 7.435 pH Units (7.350-7.450) 05/24/21 09:55 ABG pCO2 39.0 mm Hg 05/24/21 09:55 ABG pO2 141.9 mm Hg (80.0-90.0) H 05/24/21 09:55 ABG HCO3 25.6 mmol/L (20.0-26.0) 05/24/21 09:55 ABG O2 Saturation 98.8 % (95.0-99.0) 05/24/21 09:55 Calcium 8.1 mg/dL (8.4-10.2) L 05/25/21 04:25 Phosphorus 3.70 mg/dL (2.5-4.5) D 05/25/21 04:25 Magnesium 2.30 mg/dL (1.7-2.3) 05/25/21 04:25 Urine Creatinine 100.1 mg/dL (0.1-20.0) H 05/23/21 16:30 Urine Sodium 25 mmol/L 05/23/21 16:30 Urine Total Protein 42 mg/dL (5-11.8) H 05/10/21 11:03 Medications & Allergies - Medications Allergies/Adverse Reactions: Allergies No Known Allergies Allergy (Verified 05/08/21 07:47) Home Medications: Home Medications Medication Instructions Recorded Confirmed Last Taken Type Cefpodoxime Proxetil 200 mg PO Q12H #10 tablet 09/11/20 05/19/21 Unknown Rx Famotidine [Pepcid] 20 mg PO BID #30 tablet 04/13/21 05/19/21 Unknown Rx Losartan [Cozaar] 100 mg PO QDAY #60 tablet 04/13/21 05/19/21 Unknown Rx Metoprolol Xl [Metoprolol 25 mg PO QDAY #30 tablet 04/13/21 05/19/21 Unknown Rx SUCCINATE ER TAB] NIFEdipine XL [Procardia Xl] 60 mg PO Q12HR #60 tablet 04/13/21 05/19/21 Unknown Rx hydrALAZINE [Apresoline TAB] 50 mg PO Q8HR #180 tablet 04/13/21 05/19/21 Unknown Rx Active Medications: Generic Name Dose Route Start Last Admin Trade Name Freq PRN Reason Stop Dose Admin Acetaminophen 650 mg 05/04/21 12:34 05/25/21 08:13 Acetaminophen 325 Mg Tab PO 650 mg Q4H PRN Administration Pain MILD(1-3)/Fever >100.5/MARIA Acetaminophen 650 mg 05/07/21 16:00 05/11/21 16:25 Acetaminophen 650 Mg Rect Supp PA 650 mg Q4H PRN Administration Pain, Mild (1-3) Atorvastatin Calcium 40 mg 05/09/21 22:00 05/24/21 21:46 Atorvastatin 40 Mg Tab FEEDTUBE 40 mg QHS RISHI Administration Chlordiazepoxide HCl 50 mg 05/24/21 20:00 05/24/21 21:48 Chlordiazepoxide 25 Mg Cap PO 05/27/21 19:59 Not Given TID RISHI Chlordiazepoxide HCl 25 mg 05/27/21 20:00 Chlordiazepoxide 25 Mg Cap PO 05/30/21 19:59 TID RISHI Dextrose 0 ml 05/09/21 10:49 05/14/21 06:55 Dextrose 10% *Hypoglycemia IV 250 ml PRN PRN Administration Hypoglycemia Fentanyl 50 mcg 05/23/21 15:00 Fentanyl 100 Mcg/2 Ml Inj IV Q10MIN PRN ANALGESIA Haloperidol Lactate 5 mg 05/09/21 18:32 05/18/21 19:52 Haloperidol Lactate 5 Mg/1 Ml Inj IV 5 mg Q6H PRN Administration Agitation Hydralazine HCl 50 mg 05/04/21 14:00 05/24/21 21:45 Hydralazine 25 Mg Tab PO 50 mg Q8HR RISHI Administration Hydrophilic Ointment 1 applic 05/05/21 15:21 Lip Therapy Vaseline TP Q2HR PRN Dry Lips Sodium Chloride 1,000 mls @ 125 mls/hr 05/23/21 11:00 05/25/21 06:19 Nacl 0.45% 1000 Ml IV 125 mls/hr DIRECT RISHI Administration Ertapenem 0.5 gm/ Sodium 50 mls @ 100 mls/hr 05/23/21 16:00 05/24/21 18:40 Chloride IV 100 mls/hr Q24H RISHI Administration Fentanyl Citrate 2,000 mcg in 100 mls @ 4.082 mls/hr 05/23/21 15:00 Fentanyl Drip Premix IV TITR RISHI Protocol 1 MCG/KG/HR Pantoprazole Sodium 80 mg/ 100 mls @ 10 mls/hr 05/24/21 09:00 05/25/21 05:06 Sodium Chloride IV 8 mg/hr DIRECT RISHI 10 mls/hr Administration 8 MG/HR Insulin Human Lispro 0 unit 05/10/21 09:40 05/12/21 16:49 Insulin Lispro 100 Unit/Ml SUB-Q 2 unit Q6HR PRN Administration Hyperglycemia Protocol Labetalol HCl 10 mg 05/15/21 10:24 05/25/21 08:15 Labetalol 20 Mg/4 Ml Inj IV 10 mg Q4H PRN Administration sbp> 160. Metoprolol Tartrate 25 mg 05/24/21 20:00 05/24/21 21:46 Metoprolol Tartrate 25 Mg Tab FEEDTUBE 25 mg TID RISHI Administration Multi-Ingred Cream/Lotion/Oil/Oint 1 applic 05/05/21 15:21 Mineral Oil/Petrolatum, White Ophth Oint 3.5 Gm OU Q4HR PRN Dry Eye(s) Ondansetron HCl 4 mg 05/04/21 12:34 05/04/21 21:51 Ondansetron 4 Mg/2 Ml Inj IV 4 mg Q8H PRN Administration Nausea And Vomiting Quetiapine Fumarate 150 mg 05/24/21 22:00 05/24/21 21:46 Quetiapine 100 Mg Tab PO 150 mg BID RISHI Administration Senna/Docusate Sodium 1 tab 05/05/21 22:00 05/24/21 21:45 Sennosides/Docusate Sodium 8.6/50 Mg Tab FEEDTUBE 1 tab BID RISHI Administration Sodium Chloride 10 ml 05/04/21 22:00 05/24/21 21:47 Sodium Chloride 0.9% 10 Ml Flush Syringe IV 10 ml BID RISHI Administration Sodium Chloride 10 ml 05/04/21 12:34 05/06/21 13:59 Sodium Chloride 0.9% 10 Ml Flush Syringe IV 10 ml PRN PRN Administration LINE FLUSH Sodium Chloride 10 ml 05/09/21 09:46 Sodium Chloride 0.9% 50 Ml Ivpb IV PRN PRN FLUSH
--- NOTE | 2021-05-25 09:18 | XRay Report ---
XR chest 1V ap INDICATION / CLINICAL INFORMATION: follow up respiratory failure. COMPARISON: Radiograph from yesterday. FINDINGS: SUPPORT DEVICES: Endotracheal tube terminates appropriately at the level of the clavicular heads. En teric tube courses beneath the diaphragm. HEART / MEDIASTINUM: Unchanged. LUNGS / PLEURA: Linear left lower lung zone opacity, consistent subsegmental atelectasis. Lungs are c lear. No pneumothorax. No effusion. ADDITIONAL FINDINGS: No significant additional findings. IMPRESSION: 1. Clear lungs. Signer Name: Bishnu Parrish MD Signed: 05/25/2021 9:14 AM Workstation Name: [id number]
[2021-05-25 10:13] LABS: ABG Base Excess 0.6 mmol/L (-2.0-3.0); ABG HCO3 25.3 mmol/L (20.0-26.0); ABG Methemoglobin 0.6 % (0.0-1.5); ABG Oxygen Saturation 98.9 % (95.0-99.0); ABG PCO2 41.2 mm Hg; ABG PH 7.406 pH Units (7.350-7.450); ABG PO2 150.9 mm Hg (80.0-90.0)
--- NOTE | 2021-05-25 10:40 | Gastroenterology Progress Note ---
Assessment and Plan 1. Acute on chronic anemia - no overt gi bleeding. cont PPI at bid dosing. no plans for endoscopy at this time unless change in clinical course/signs of overt gi bleeding. will sign off, please call as needed. Subjective Date of service: 05/25/21 Principal diagnosis: AHRF; COVID-19 infection; NSTEMI; YE; HFrEF (35-40%); Polysubstance abuse Interval history: no overt bleeding signs. remains intubated, appropriate response in labs to blood transfusions Objective - Exam Narrative Exam: gen: intubated abd: soft, nd lungs: on vent - Constitutional Vitals: Temp Pulse Resp BP Pulse Ox 99.7 F H 71 20 105/70 99 05/25/21 09:30 05/25/21 10:00 05/25/21 10:00 05/25/21 10:00 05/25/21 10:00 - Labs CBC & Chem 7: 05/25/21 04:25 05/25/21 04:25 Labs: Laboratory Results - last 24 hr 05/23/21 05/24/21 05/24/21 07:12 11:01 16:41 WBC RBC Hgb Hct MCV MCH MCHC RDW Plt Count PT INR ABG pH ABG pCO2 ABG pO2 ABG HCO3 ABG O2 Saturation ABG O2 Content ABG Base Excess ABG Hemoglobin ABG Carboxyhemoglobin ABG Methemoglobin Oxyhemoglobin FiO2 Sodium Potassium Chloride Carbon Dioxide Anion Gap BUN Creatinine Estimated GFR BUN/Creatinine Ratio Glucose POC Glucose 104 101 Calcium Phosphorus Magnesium Blood Type O POSITIVE Antibody Screen Negative Crossmatch See Detail 05/24/21 05/25/21 05/25/21 23:00 04:25 04:25 WBC 13.8 H RBC 2.78 L Hgb 8.3 L Hct 25.6 L MCV 92 MCH 30 MCHC 33 RDW 16.2 H Plt Count 325 PT INR ABG pH ABG pCO2 ABG pO2 ABG HCO3 ABG O2 Saturation ABG O2 Content ABG Base Excess ABG Hemoglobin ABG Carboxyhemoglobin ABG Methemoglobin Oxyhemoglobin FiO2 Sodium 139 Potassium 3.9 Chloride 104.8 Carbon Dioxide 23 Anion Gap 15 BUN 76 H Creatinine 2.6 H Estimated GFR 26 BUN/Creatinine Ratio 29 Glucose 110 H POC Glucose 93 Calcium 8.1 L Phosphorus Magnesium Blood Type Antibody Screen Crossmatch 05/25/21 05/25/2105/25/22 04:25 04:25 05:19 WBC RBC Hgb Hct MCV MCH MCHC RDW Plt Count PT 14.9 INR 1.05 ABG pH ABG pCO2 ABG pO2 ABG HCO3 ABG O2 Saturation ABG O2 Content ABG Base Excess ABG Hemoglobin ABG Carboxyhemoglobin ABG Methemoglobin Oxyhemoglobin FiO2 Sodium Potassium Chloride Carbon Dioxide Anion Gap BUN Creatinine Estimated GFR BUN/Creatinine Ratio Glucose POC Glucose 123 H Calcium Phosphorus 3.70 D Magnesium 2.30 Blood Type Antibody Screen Crossmatch 05/25/21 09:40 WBC RBC Hgb Hct MCV MCH MCHC RDW Plt Count PT INR ABG pH 7.406 ABG pCO2 41.2 ABG pO2 150.9 H ABG HCO3 25.3 ABG O2 Saturation 98.9 ABG O2 Content 9.8 ABG Base Excess 0.6 ABG Hemoglobin 7.0 L ABG Carboxyhemoglobin 1.8 ABG Methemoglobin 0.6 Oxyhemoglobin 96.5 FiO2 40 Sodium Potassium Chloride Carbon Dioxide Anion Gap BUN Creatinine Estimated GFR BUN/Creatinine Ratio Glucose POC Glucose Calcium Phosphorus Magnesium Blood Type Antibody Screen Crossmatch
--- NOTE | 2021-05-25 10:41 | Progress Note ---
Assessment and Plan Cultures: Blood culture 05/07/2021 no growth so far Blood culture 05/10/2021 no growth so far Sputum culture 05/16/2021 Enterobacter 05/23/2021 tracheal aspirate culture: In process A/P: 56 yo M PMHx smoking, A. fib, HTN, medication non-compliance admitted with #Severe COVID-19 pneumonia: Patient presented with a week of symptoms, chest x- ray with diffuse bilateral infiltrates, admission O2 sats decreased on room air. Inflammatory markers elevated. Was not a candidate for Remdesivir. Completed steroids. #Acute hypoxemic respiratory failure: secondary to COVID-19 infection. On BiPAP #VAP: Cultures with Enterobacter. #YE: Renally dose medications. #Acute anemia #Urinary tox screen positive for amphetamines Recommendations: -WBC downtrending, continue IV ertapenem renally adjusted, D3 of 7 Rhonda Mooney MD, FACP, [facility] ([facility]) O: [phone] F: [phone] Subjective Date of service: 05/25/21 Principal diagnosis: AHRF; COVID-19 infection; NSTEMI; YE; HFrEF (35-40%); Polysubstance abuse Interval history: Fever of 101.4 F. Remains on the vent. Objective - Exam Narrative Exam: Physical Exam: Constitutional: sedated, intubated, on the vent Head, Ears, Nose: Normocephalic, atraumatic. External ears, nose normal Eyes: Conjunctivae/corneas clear. No icterus. No ptosis. Neck: intubated Oral: intubated Cardiovascular: S1, S2 + Respiratory: AE fair bilaterally and equal GI: Soft, bowel sounds + Musculoskeletal: No pedal edema, no cyanosis. Skin: No rash or abscess Hem/Lymphatic: No palpable cervical or supraclavicular nodes. No lymphangitis Psych: no agitation Neurological: sedated, intubated, on the vent, exam limited - Constitutional Vitals: Vital Signs Temp Pulse Resp BP Pulse Ox 99.7 F H 71 20 105/70 99 05/25/21 09:30 05/25/21 10:00 05/25/21 10:00 05/25/21 10:00 05/25/21 10:00 Temperature -Last 24 Hours Temperature 99.7 F Temperature 101.4 F Temperature 97.6 F Temperature 98.0 F Temperature 99.1 F Temperature 100.7 F Temperature 100.7 F Temperature 100.7 F Temperature 101.2 F Temperature 101.2 F Temperature 99.8 F Temperature 99.8 F Temperature 98.9 F Temperature 99.3 F Temperature 99.6 F - Labs CBC & Chem 7: 05/25/21 04:25 05/25/21 04:25 Labs: Abnormal lab results 05/23/21 05/25/21 05/25/21 Range/Units 07:12 04:25 04:25 WBC 13.8 H (4.5-11.0) K/mm3 RBC 2.78 L (3.65-5.03) M/mm3 Hgb 8.3 L (11.8-15.2) gm/dl Hct 25.6 L (35.5-45.6) % RDW 16.2 H (13.2-15.2) % ABG pO2 (80.0-90.0) mm Hg ABG Hemoglobin (14.0-18.0) gm/dl BUN 76 H (9-20) mg/dL Creatinine 2.6 H (0.8-1.3) mg/dL Glucose 110 H (75-100) mg/dL POC Glucose (70-105) mg/dL Calcium 8.1 L (8.4-10.2) mg/dL Crossmatch See Detail 05/25/21 05/25/21 Range/Units 05:19 09:40 WBC (4.5-11.0) K/mm3 RBC (3.65-5.03) M/mm3 Hgb (11.8-15.2) gm/dl Hct (35.5-45.6) % RDW (13.2-15.2) % ABG pO2 150.9 H (80.0-90.0) mm Hg ABG Hemoglobin 7.0 L (14.0-18.0) gm/dl BUN (9-20) mg/dL Creatinine (0.8-1.3) mg/dL Glucose (75-100) mg/dL POC Glucose 123 H (70-105) mg/dL Calcium (8.4-10.2) mg/dL Crossmatch
--- NOTE | 2021-05-25 13:00 | Progress Note ---
Assessment and Plan Acute hypoxic resp failure on MVS COVID positive NSTEMI Acute kidney injury Cardiomyopathy EF 35-40% History of hepatitis C Elevated D-dimer. Low probability for PE seen on VQ scan Tobacco abuse Polysubstance abusepatient with positive methamphetamines and has a history of cocaine use Anemia - Protonix 40 mg IV bid - AB's changed to Ertapenem - gentle hydration - reduced Seroquel to 100 mg p.o. bid - awaiting trach & PEG - anticoagulation per vascular team - continue care as below otherwise; - daily SAT and SBT assessment as tolerated - continue to wean supplemental oxygen for target O2 sat's > 90% acutely - VAP bundle addressed - continue lung protective strategies - continue bronchodilators with pulmonary hygiene per RT - wean per pulmonary driven protocols otherwise - avoid nephrotoxins, renally dose all medications - continue accuchecks with glycemic control per SSI (While critically ill target blood glucose of 140-180 mg/dL; avoid hypoglycemia) - sedation prn for target RASS 0 to -1 - continue to avoid benzodiazepine's, reduce the possibility of delirium - prn analgesia per CPOT score - Maintenance of sleep-wake cycle, avoid delirium - continue enteral nutritional support at goal rate as tolerated - G.I. & VTE prophylaxis - PT/OT/ROM exercises - continue mobility protocols for pressure ulcer prophylaxis - Monitor hemodynamics closely - continue other care per attending / other consultants - discharge planning ongoing concurrently COVID SPECIFIC INTERVENTIONS - Appears to have incidental COVID infection- Remdesivir not administered secondary to renal failure - continue systemic steroids for severe COVID-19 infection empirically (Dexamethasone) - follow repeat COVID tests results - zinc and vitamin C supplementation - Monitor inflammatory markers per facility protocol - ferritin, Ddimer, CRP - therapeutic anticoagulation per system Protocol based on d-dimer and clinical considerations (on therapeutic heparin for NSTEMI) - Continue contact and airborne isolation .... Re-evaluate in am & prn CONDITION: CRITICAL PROGNOSIS: GUARDED CODE STATUS: FULL CODE The high probability of a clinically significant, sudden or life-threatening deterioration of the [respiratory, cardiovascular & neurologic] system(s) required my full and direct attention, intervention and personal management. The aggregate critical care time was [32] minutes without overlap. Time includes spent on; [x] Data Review and interpretation [x] Patient assessment and monitoring of vital signs [x] Documentation [x] Medication orders and management Subjective Date of service: 05/25/21 Principal diagnosis: AHRF; COVID-19 infection; NSTEMI; YE; HFrEF (35-40%); Polysubstance abuse Interval history: Patient is seen today for: Acute hypoxemic Resp failure; COVID-19 infection; NSTEMI; YE; HFrEF (35-40%); Polysubstance abuse; Anemia Seen and examined at bedside; 24hour events reviewed; nursing and respiratory care staff consulted; no adverse overnight events reported to me; resting in bed; Protonix drip stopped and transitioned to bid dosing; AMS is persistent; also anti-infective's adjusted per ID recommendations Objective Vital Signs - 12hr 05/25/21 05/25/21 05/25/21 01:00 01:15 01:30 Temperature Pulse Rate 72 73 72 Pulse Rate [ From Monitor] Respiratory 22 21 23 Rate Blood Pressure 129/87 129/87 121/82 O2 Sat by Pulse 100 100 100 Oximetry 05/25/21 05/25/21 05/25/21 01:45 02:00 02:15 Temperature Pulse Rate 71 73 76 Pulse Rate [ From Monitor] Respiratory 21 22 21 Rate Blood Pressure 121/82 128/85 128/85 O2 Sat by Pulse 100 100 100 Oximetry 05/25/21 05/25/21 05/25/21 02:30 02:45 03:00 Temperature Pulse Rate 76 77 78 Pulse Rate [ From Monitor] Respiratory 23 24 22 Rate Blood Pressure 135/91 135/91 141/94 O2 Sat by Pulse 100 100 100 Oximetry 05/25/21 05/25/21 05/25/21 03:15 03:19 03:30 Temperature Pulse Rate 77 79 Pulse Rate [ 79 From Monitor] Respiratory 24 25 H 25 H Rate Blood Pressure 141/94 146/98 O2 Sat by Pulse 100 100 100 Oximetry 05/25/21 05/25/21 05/25/21 03:45 04:00 04:15 Temperature 97.6 F Pulse Rate 79 79 81 Pulse Rate [ From Monitor] Respiratory 26 H 23 21 Rate Blood Pressure 146/98 145/93 145/93 O2 Sat by Pulse 100 99 99 Oximetry 05/25/21 05/25/21 05/25/21 04:30 04:45 05:00 Temperature Pulse Rate 81 82 80 Pulse Rate [ From Monitor] Respiratory 20 24 20 Rate Blood Pressure 151/98 151/98 151/94 O2 Sat by Pulse 99 99 99 Oximetry 05/25/21 05/25/21 05/25/21 05:14 05:15 05:30 Temperature Pulse Rate 82 81 83 Pulse Rate [ From Monitor] Respiratory 20 Rate Blood Pressure 151/94 151/94 155/98 O2 Sat by Pulse 100 100 99 Oximetry 05/25/21 05/25/21 05/25/21 05:45 06:00 06:15 Temperature Pulse Rate 84 84 85 Pulse Rate [ From Monitor] Respiratory 23 Rate Blood Pressure 155/98 156/98 156/98 O2 Sat by Pulse 99 99 99 Oximetry 05/25/21 05/25/21 05/25/21 06:30 06:45 07:00 Temperature Pulse Rate 86 84 87 Pulse Rate [ From Monitor] Respiratory 26 H 23 26 H Rate Blood Pressure 163/104 163/104 171/112 O2 Sat by Pulse 99 99 99 Oximetry 05/25/21 05/25/21 05/25/21 07:16 07:30 07:46 Temperature Pulse Rate 88 90 88 Pulse Rate [ From Monitor] Respiratory 22 Rate Blood Pressure 156/98 176/119 176/119 O2 Sat by Pulse 99 99 99 Oximetry 05/25/21 05/25/21 05/25/21 08:00 08:16 08:25 Temperature 101.4 F H Pulse Rate 91 H 90 79 Pulse Rate [ 79 From Monitor] Respiratory 25 H 26 H Rate Blood Pressure 177/120 177/120 172/120 O2 Sat by Pulse 100 99 99 Oximetry 05/25/21 05/25/21 05/25/21 08:30 08:46 09:00 Temperature Pulse Rate 79 82 81 Pulse Rate [ From Monitor] Respiratory 27 H 24 26 H Rate Blood Pressure 148/97 148/97 149/94 O2 Sat by Pulse 99 99 99 Oximetry 05/25/21 05/25/21 05/25/21 09:16 09:30 09:46 Temperature 99.7 F H Pulse Rate 81 74 74 Pulse Rate [ From Monitor] Respiratory H 22 Rate Blood Pressure 149/94 121/80 121/80 O2 Sat by Pulse 99 99 99 Oximetry 05/25/21 10:00 Temperature Pulse Rate 71 Pulse Rate [ From Monitor] Respiratory 20 Rate Blood Pressure 105/70 O2 Sat by Pulse 99 Oximetry Constitutional: appears uncomfortable, other (middle aged male with mildly increased respiratory effort at rest) Eyes: non-icteric ENT: oropharynx moist, other (ETT 24 cm ELIZABET) Neck: supple, no lymphadenopathy, no JVD Effort: mildly labored Ascultation: Bilateral: diminished breath sounds, rhonchi (bases) Percussion: Bilateral: not dull Cardiovascular: regular rate and rhythm, other (S1,S2) Gastrointestinal: normoactive bowel sounds, soft, non-tender, non-distended Integumentary: normal Extremities: no cyanosis, no edema, pulses normal Neurologic: non-focal exam (grossly), pupils equal and round, unable to assess (sedated) Psychiatric: other CBC and BMP: 05/26/21 07:09 05/26/21 07:09 ABG, PT/INR, D-dimer: ABG ABG pH 7.406 pH Units (7.350-7.450) 05/25/21 09:40 ABG pCO2 41.2 mm Hg 05/25/21 09:40 ABG pO2 150.9 mm Hg (80.0-90.0) H 05/25/21 09:40 ABG O2 Saturation 98.9 % (95.0-99.0) 05/25/21 09:40 PT/INR, D-dimer PT 14.9 Sec. (12.2-14.9) 05/25/21 04:25 INR 1.05 (0.87-1.13) 05/25/21 04:25 D-Dimer 2730.61 ng/mlDDU (0-234) H 05/12/21 07:19 Abnormal lab findings: Abnormal Labs 05/04/21 05/04/21 05/04/21 07:25 07:25 07:25 WBC 12.9 H RBC 3.04 L Hgb 9.5 L Hct 28.4 L MCV MCHC RDW 15.4 H Lymph % (Auto) 11.4 L [place] % (Auto) 10.1 H Lymph # (Auto) [place] # (Auto) 1.3 H Seg Neutrophils % 78.0 H Seg Neuts % (Manual) Lymphocytes % (Manual) Monocytes % (Manual) Seg Neutrophils # 10.0 H Seg Neutrophils # Man Lymphocytes # (Manual) Monocytes # (Manual) PT 15.1 H APTT D-Dimer Heparin Anti-Xa Level ABG pH ABG pO2 ABG HCO3 ABG O2 Saturation ABG Base Excess ABG Hemoglobin Oxyhemoglobin Sodium 135 L Potassium Chloride Carbon Dioxide BUN 65 H Creatinine 3.4 H Glucose 118 H POC Glucose Calcium Phosphorus Magnesium Iron TIBC Ferritin Total Bilirubin 1.50 H AST 519 H ALT 475 H Lactate Dehydrogenase Total Creatine Kinase Troponin T 1.300 H* C-Reactive Protein Albumin Urine WBC (Auto) Urine Creatinine Urine Total Protein Complement C3 Coronavirus (PCR) Hepatitis C Antibody Crossmatch 05/04/21 05/04/21 05/04/21 07:25 08:42 08:42 WBC RBC Hgb Hct MCV MCHC RDW Lymph % (Auto) [place] % (Auto) Lymph # (Auto) [place] # (Auto) Seg Neutrophils % Seg Neuts % (Manual) Lymphocytes % (Manual) Monocytes % (Manual) Seg Neutrophils # Seg Neutrophils # Man Lymphocytes # (Manual) Monocytes # (Manual) PT APTT D-Dimer 579.49 H Heparin Anti-Xa Level ABG pH ABG pO2 ABG HCO3 ABG O2 Saturation ABG Base Excess ABG Hemoglobin Oxyhemoglobin Sodium Potassium Chloride Carbon Dioxide BUN Creatinine Glucose POC Glucose Calcium Phosphorus Magnesium Iron TIBC Ferritin Total Bilirubin AST ALT Lactate Dehydrogenase Total Creatine Kinase 406 H Troponin T 1.230 H* C-Reactive Protein Albumin Urine WBC (Auto) Urine Creatinine Urine Total Protein Complement C3 Coronavirus (PCR) Hepatitis C Antibody Crossmatch 05/04/21 05/04/21 05/04/21 10:13 13:34 18:14 WBC RBC Hgb 8.8 L Hct 26.6 L MCV MCHC RDW Lymph % (Auto) [place] % (Auto) Lymph # (Auto) [place] # (Auto) Seg Neutrophils % Seg Neuts % (Manual) Lymphocytes % (Manual) Monocytes % (Manual) Seg Neutrophils # Seg Neutrophils # Man Lymphocytes # (Manual) Monocytes # (Manual) PT APTT D-Dimer Heparin Anti-Xa Level < 0.10 L ABG pH ABG pO2 ABG HCO3 ABG O2 Saturation ABG Base Excess ABG Hemoglobin Oxyhemoglobin Sodium Potassium Chloride Carbon Dioxide BUN Creatinine Glucose POC Glucose Calcium Phosphorus Magnesium Iron TIBC Ferritin Total Bilirubin AST ALT Lactate Dehydrogenase Total Creatine Kinase Troponin T 1.400 H* C-Reactive Protein Albumin Urine WBC (Auto) Urine Creatinine Urine Total Protein Complement C3 Coronavirus (PCR) Hepatitis C Antibody Crossmatch 05/05/21 05/05/21 05/05/21 03:40 03:40 03:40 WBC RBC Hgb Hct MCV MCHC RDW Lymph % (Auto) [place] % (Auto) Lymph # (Auto) [place] # (Auto) Seg Neutrophils % Seg Neuts % (Manual) Lymphocytes % (Manual) Monocytes % (Manual) Seg Neutrophils # Seg Neutrophils # Man Lymphocytes # (Manual) Monocytes # (Manual) PT APTT D-Dimer Heparin Anti-Xa Level 0.11 L ABG pH ABG pO2 ABG HCO3 ABG O2 Saturation ABG Base Excess ABG Hemoglobin Oxyhemoglobin Sodium Potassium 3.3 L Chloride Carbon Dioxide BUN 59 H Creatinine 2.6 H Glucose 139 H POC Glucose Calcium Phosphorus Magnesium Iron TIBC Ferritin Total Bilirubin AST ALT Lactate Dehydrogenase Total Creatine Kinase Troponin T C-Reactive Protein Albumin Urine WBC (Auto) Urine Creatinine Urine Total Protein Complement C3 Coronavirus (PCR) Hepatitis C Antibody Reactive A Crossmatch 05/05/21 05/05/21 05/05/21 03:40 08:30 09:57 WBC RBC Hgb Hct MCV MCHC RDW Lymph % (Auto) [place] % (Auto) Lymph # (Auto) [place] # (Auto) Seg Neutrophils % Seg Neuts % (Manual) Lymphocytes % (Manual) Monocytes % (Manual) Seg Neutrophils # Seg Neutrophils # Man Lymphocytes # (Manual) Monocytes # (Manual) PT APTT D-Dimer Heparin Anti-Xa Level ABG pH ABG pO2 ABG HCO3 ABG O2 Saturation ABG Base Excess ABG Hemoglobin Oxyhemoglobin Sodium Potassium Chloride Carbon Dioxide BUN Creatinine Glucose POC Glucose Calcium Phosphorus Magnesium Iron TIBC Ferritin Total Bilirubin AST ALT Lactate Dehydrogenase Total Creatine Kinase Troponin T C-Reactive Protein Albumin Urine WBC (Auto) Urine Creatinine 100.8 H Urine Total Protein Complement C3 72 L Coronavirus (PCR) Positive A Hepatitis C Antibody Crossmatch 05/05/21 05/05/21 05/05/21 11:28 17:00 19:51 WBC RBC Hgb Hct MCV MCHC RDW Lymph % (Auto) [place] % (Auto) Lymph # (Auto) [place] # (Auto) Seg Neutrophils % Seg Neuts % (Manual) Lymphocytes % (Manual) Monocytes % (Manual) Seg Neutrophils # Seg Neutrophils # Man Lymphocytes # (Manual) Monocytes # (Manual) PT APTT D-Dimer Heparin Anti-Xa Level 0.10 L 0.22 L ABG pH 7.304 L ABG pO2 140.8 H ABG HCO3 ABG O2 Saturation ABG Base Excess -2.1 L ABG Hemoglobin 10.2 L Oxyhemoglobin Sodium Potassium Chloride Carbon Dioxide BUN Creatinine Glucose POC Glucose Calcium Phosphorus Magnesium Iron TIBC Ferritin Total Bilirubin AST ALT Lactate Dehydrogenase Total Creatine Kinase Troponin T C-Reactive Protein Albumin Urine WBC (Auto) Urine Creatinine Urine Total Protein Complement C3 Coronavirus (PCR) Hepatitis C Antibody Crossmatch 05/06/21 05/06/21 05/06/21 03:47 06:15 17:53 WBC RBC Hgb 9.0 L Hct 27.8 L MCV MCHC RDW Lymph % (Auto) [place] % (Auto) Lymph # (Auto) [place] # (Auto) Seg Neutrophils % Seg Neuts % (Manual) Lymphocytes % (Manual) Monocytes % (Manual) Seg Neutrophils # Seg Neutrophils # Man Lymphocytes # (Manual) Monocytes # (Manual) PT APTT D-Dimer Heparin Anti-Xa Level 0.10 L ABG pH ABG pO2 143.5 H ABG HCO3 ABG O2 Saturation ABG Base Excess -2.4 L ABG Hemoglobin 6.9 L Oxyhemoglobin Sodium Potassium Chloride Carbon Dioxide BUN Creatinine Glucose POC Glucose Calcium Phosphorus Magnesium Iron TIBC Ferritin Total Bilirubin AST ALT Lactate Dehydrogenase Total Creatine Kinase Troponin T C-Reactive Protein Albumin Urine WBC (Auto) Urine Creatinine Urine Total Protein Complement C3 Coronavirus (PCR) Hepatitis C Antibody Crossmatch 05/07/21 05/07/21 05/07/21 00:07 03:22 03:45 WBC RBC Hgb Hct MCV MCHC RDW Lymph % (Auto) [place] % (Auto) Lymph # (Auto) [place] # (Auto) Seg Neutrophils % Seg Neuts % (Manual) Lymphocytes % (Manual) Monocytes % (Manual) Seg Neutrophils # Seg Neutrophils # Man Lymphocytes # (Manual) Monocytes # (Manual) PT APTT D-Dimer Heparin Anti-Xa Level < 0.10 L ABG pH ABG pO2 104.3 H ABG HCO3 ABG O2 Saturation ABG Base Excess -2.6 L ABG Hemoglobin 9.1 L Oxyhemoglobin Sodium Potassium Chloride 107.1 H Carbon Dioxide 20 L BUN 56 H Creatinine 2.9 H Glucose POC Glucose Calcium Phosphorus Magnesium Iron TIBC Ferritin Total Bilirubin AST ALT Lactate Dehydrogenase Total Creatine Kinase Troponin T C-Reactive Protein Albumin Urine WBC (Auto) Urine Creatinine Urine Total Protein Complement C3 Coronavirus (PCR) Hepatitis C Antibody Crossmatch 05/07/21 05/07/21 05/07/21 07:44 16:28 22:41 WBC RBC Hgb Hct MCV MCHC RDW Lymph % (Auto) [place] % (Auto) Lymph # (Auto) [place] # (Auto) Seg Neutrophils % Seg Neuts % (Manual) Lymphocytes % (Manual) Monocytes % (Manual) Seg Neutrophils # Seg Neutrophils # Man Lymphocytes # (Manual) Monocytes # (Manual) PT APTT D-Dimer Heparin Anti-Xa Level < 0.10 L 0.10 L < 0.10 L ABG pH ABG pO2 ABG HCO3 ABG O2 Saturation ABG Base Excess ABG Hemoglobin Oxyhemoglobin Sodium Potassium Chloride Carbon Dioxide BUN Creatinine Glucose POC Glucose Calcium Phosphorus Magnesium Iron TIBC Ferritin Total Bilirubin AST ALT Lactate Dehydrogenase Total Creatine Kinase Troponin T C-Reactive Protein Albumin Urine WBC (Auto) Urine Creatinine Urine Total Protein Complement C3 Coronavirus (PCR) Hepatitis C Antibody Crossmatch 05/08/21 05/08/21 05/08/21 03:25 04:34 07:30 WBC 12.4 H RBC 3.02 L Hgb 9.5 L Hct 29.2 L MCV 97 H MCHC RDW 16.7 H Lymph % (Auto) 8.1 L [place] % (Auto) 11.0 H Lymph # (Auto) 1.0 L [place] # (Auto) 1.4 H Seg Neutrophils % 80.1 H Seg Neuts % (Manual) Lymphocytes % (Manual) Monocytes % (Manual) Seg Neutrophils # 9.9 H Seg Neutrophils # Man Lymphocytes # (Manual) Monocytes # (Manual) PT APTT D-Dimer Heparin Anti-Xa Level ABG pH ABG pO2 139.0 H ABG HCO3 ABG O2 Saturation ABG Base Excess ABG Hemoglobin 8.8 L Oxyhemoglobin Sodium Potassium Chloride 110.5 H Carbon Dioxide BUN 59 H Creatinine 2.8 H Glucose 103 H POC Glucose Calcium Phosphorus Magnesium Iron TIBC Ferritin Total Bilirubin AST ALT 327 H Lactate Dehydrogenase Total Creatine Kinase Troponin T C-Reactive Protein Albumin 3.1 L Urine WBC (Auto) Urine Creatinine Urine Total Protein Complement C3 Coronavirus (PCR) Hepatitis C Antibody Crossmatch 05/09/21 05/09/21 05/09/21 04:10 04:20 04:20 WBC 11.7 H RBC 2.79 L Hgb 8.7 L Hct 26.5 L MCV 95 H MCHC RDW 16.2 H Lymph % (Auto) [place] % (Auto) Lymph # (Auto) [place] # (Auto) Seg Neutrophils % Seg Neuts % (Manual) Lymphocytes % (Manual) Monocytes % (Manual) Seg Neutrophils # Seg Neutrophils # Man Lymphocytes # (Manual) Monocytes # (Manual) PT APTT D-Dimer Heparin Anti-Xa Level ABG pH ABG pO2 161.6 H ABG HCO3 ABG O2 Saturation ABG Base Excess ABG Hemoglobin 8.3 L Oxyhemoglobin Sodium 151 H Potassium Chloride 114.5 H Carbon Dioxide 21 L BUN 57 H Creatinine 2.4 H Glucose POC Glucose Calcium Phosphorus Magnesium Iron TIBC Ferritin Total Bilirubin AST ALT 210 H Lactate Dehydrogenase Total Creatine Kinase Troponin T C-Reactive Protein Albumin 2.9 L Urine WBC (Auto) Urine Creatinine Urine Total Protein Complement C3 Coronavirus (PCR) Hepatitis C Antibody Crossmatch 05/09/21 05/09/21 05/09/21 09:48 09:48 13:22 WBC 11.6 H RBC 3.00 L Hgb 9.0 L Hct 28.4 L MCV MCHC RDW 15.9 H Lymph % (Auto) 5.9 L [place] % (Auto) 8.9 H Lymph # (Auto) 0.7 L [place] # (Auto) 1.0 H Seg Neutrophils % 84.3 H Seg Neuts % (Manual) Lymphocytes % (Manual) Monocytes % (Manual) Seg Neutrophils # 9.8 H Seg Neutrophils # Man Lymphocytes # (Manual) Monocytes # (Manual) PT APTT D-Dimer Heparin Anti-Xa Level ABG pH ABG pO2 ABG HCO3 ABG O2 Saturation ABG Base Excess ABG Hemoglobin Oxyhemoglobin Sodium Potassium Chloride Carbon Dioxide BUN Creatinine Glucose POC Glucose Calcium Phosphorus Magnesium Iron TIBC Ferritin Total Bilirubin AST ALT Lactate Dehydrogenase Total Creatine Kinase Troponin T C-Reactive Protein 8.70 H Albumin Urine WBC (Auto) 25.0 H Urine Creatinine Urine Total Protein Complement C3 Coronavirus (PCR) Hepatitis C Antibody Crossmatch 05/09/21 05/09/21 05/10/21 15:20 18:16 04:57 WBC RBC 2.87 L Hgb 8.8 L Hct 27.0 L MCV MCHC RDW 15.9 H Lymph % (Auto) [place] % (Auto) Lymph # (Auto) [place] # (Auto) Seg Neutrophils % Seg Neuts % (Manual) Lymphocytes % (Manual) Monocytes % (Manual) Seg Neutrophils # Seg Neutrophils # Man Lymphocytes # (Manual) Monocytes # (Manual) PT APTT D-Dimer Heparin Anti-Xa Level ABG pH ABG pO2 102.0 H ABG HCO3 ABG O2 Saturation ABG Base Excess -2.8 L ABG Hemoglobin 9.0 L Oxyhemoglobin Sodium Potassium Chloride Carbon Dioxide BUN Creatinine Glucose POC Glucose 130 H Calcium Phosphorus Magnesium Iron TIBC Ferritin Total Bilirubin AST ALT Lactate Dehydrogenase Total Creatine Kinase Troponin T C-Reactive Protein Albumin Urine WBC (Auto) Urine Creatinine Urine Total Protein Complement C3 Coronavirus (PCR) Hepatitis C Antibody Crossmatch 05/10/21 05/10/21 05/10/21 04:57 04:57 04:57 WBC RBC Hgb Hct MCV MCHC RDW Lymph % (Auto) [place] % (Auto) Lymph # (Auto) [place] # (Auto) Seg Neutrophils % Seg Neuts % (Manual) Lymphocytes % (Manual) Monocytes % (Manual) Seg Neutrophils # Seg Neutrophils # Man Lymphocytes # (Manual) Monocytes # (Manual) PT APTT D-Dimer 1546.78 H Heparin Anti-Xa Level ABG pH ABG pO2 ABG HCO3 ABG O2 Saturation ABG Base Excess ABG Hemoglobin Oxyhemoglobin Sodium 148 H Potassium Chloride 114.9 H Carbon Dioxide 21 L BUN 57 H Creatinine 2.3 H Glucose 157 H POC Glucose Calcium Phosphorus Magnesium Iron TIBC Ferritin 888.2 H Total Bilirubin AST ALT Lactate Dehydrogenase 289 H Total Creatine Kinase Troponin T C-Reactive Protein 6.80 H Albumin Urine WBC (Auto) Urine Creatinine Urine Total Protein Complement C3 Coronavirus (PCR) Hepatitis C Antibody Crossmatch 05/10/21 05/10/21 05/10/21 05:09 08:04 11:03 WBC RBC Hgb Hct MCV MCHC RDW Lymph % (Auto) [place] % (Auto) Lymph # (Auto) [place] # (Auto) Seg Neutrophils % Seg Neuts % (Manual) Lymphocytes % (Manual) Monocytes % (Manual) Seg Neutrophils # Seg Neutrophils # Man Lymphocytes # (Manual) Monocytes # (Manual) PT APTT D-Dimer Heparin Anti-Xa Level ABG pH 7.473 H ABG pO2 114.6 H ABG HCO3 ABG O2 Saturation ABG Base Excess ABG Hemoglobin 9.5 L Oxyhemoglobin Sodium Potassium Chloride Carbon Dioxide BUN Creatinine Glucose POC Glucose 152 H Calcium Phosphorus Magnesium Iron TIBC Ferritin Total Bilirubin AST ALT Lactate Dehydrogenase Total Creatine Kinase Troponin T C-Reactive Protein Albumin Urine WBC (Auto) Urine Creatinine 100.8 H Urine Total Protein 42 H Complement C3 Coronavirus (PCR) Hepatitis C Antibody Crossmatch 05/10/21 05/10/21 05/10/21 13:07 18:01 23:31 WBC RBC Hgb Hct MCV MCHC RDW Lymph % (Auto) [place] % (Auto) Lymph # (Auto) [place] # (Auto) Seg Neutrophils % Seg Neuts % (Manual) Lymphocytes % (Manual) Monocytes % (Manual) Seg Neutrophils # Seg Neutrophils # Man Lymphocytes # (Manual) Monocytes # (Manual) PT APTT D-Dimer Heparin Anti-Xa Level ABG pH ABG pO2 ABG HCO3 ABG O2 Saturation ABG Base Excess ABG Hemoglobin Oxyhemoglobin Sodium Potassium Chloride Carbon Dioxide BUN Creatinine Glucose POC Glucose 150 H 189 H 142 H Calcium Phosphorus Magnesium Iron TIBC Ferritin Total Bilirubin AST ALT Lactate Dehydrogenase Total Creatine Kinase Troponin T C-Reactive Protein Albumin Urine WBC (Auto) Urine Creatinine Urine Total Protein Complement C3 Coronavirus (PCR) Hepatitis C Antibody Crossmatch 05/10/21 05/11/21 05/11/21 Unknown 05:25 06:53 WBC RBC Hgb Hct MCV MCHC RDW Lymph % (Auto) [place] % (Auto) Lymph # (Auto) [place] # (Auto) Seg Neutrophils % Seg Neuts % (Manual) Lymphocytes % (Manual) Monocytes % (Manual) Seg Neutrophils # Seg Neutrophils # Man Lymphocytes # (Manual) Monocytes # (Manual) PT APTT D-Dimer Heparin Anti-Xa Level ABG pH ABG pO2 126.6 H ABG HCO3 ABG O2 Saturation ABG Base Excess ABG Hemoglobin 9.2 L Oxyhemoglobin Sodium 150 H Potassium Chloride 116.6 H Carbon Dioxide 21 L BUN 62 H Creatinine 2.5 H Glucose 142 H POC Glucose 163 H Calcium Phosphorus Magnesium Iron TIBC Ferritin Total Bilirubin AST ALT Lactate Dehydrogenase Total Creatine Kinase Troponin T C-Reactive Protein Albumin Urine WBC (Auto) Urine Creatinine Urine Total Protein Complement C3 Coronavirus (PCR) Hepatitis C Antibody Crossmatch 05/11/21 05/11/21 05/11/21 06:53 11:06 13:51 WBC RBC 3.07 L Hgb 9.3 L Hct 29.0 L MCV 95 H MCHC RDW 16.1 H Lymph % (Auto) [place] % (Auto) Lymph # (Auto) [place] # (Auto) Seg Neutrophils % Seg Neuts % (Manual) Lymphocytes % (Manual) Monocytes % (Manual) Seg Neutrophils # Seg Neutrophils # Man Lymphocytes # (Manual) Monocytes # (Manual) PT APTT D-Dimer Heparin Anti-Xa Level ABG pH ABG pO2 74.9 L ABG HCO3 ABG O2 Saturation ABG Base Excess -3.3 L ABG Hemoglobin 10.8 L Oxyhemoglobin Sodium Potassium Chloride Carbon Dioxide BUN Creatinine Glucose POC Glucose 145 H Calcium Phosphorus Magnesium Iron TIBC Ferritin Total Bilirubin AST ALT Lactate Dehydrogenase Total Creatine Kinase Troponin T C-Reactive Protein Albumin Urine WBC (Auto) Urine Creatinine Urine Total Protein Complement C3 Coronavirus (PCR) Hepatitis C Antibody Crossmatch 05/11/21 05/11/21 05/11/21 14:43 14:43 15:47 WBC RBC Hgb 9.2 L Hct 29.7 L MCV MCHC RDW Lymph % (Auto) [place] % (Auto) Lymph # (Auto) [place] # (Auto) Seg Neutrophils % Seg Neuts % (Manual) Lymphocytes % (Manual) Monocytes % (Manual) Seg Neutrophils # Seg Neutrophils # Man Lymphocytes # (Manual) Monocytes # (Manual) PT 15.6 H APTT D-Dimer Heparin Anti-Xa Level ABG pH ABG pO2 ABG HCO3 ABG O2 Saturation ABG Base Excess ABG Hemoglobin Oxyhemoglobin Sodium Potassium Chloride Carbon Dioxide BUN Creatinine Glucose POC Glucose 137 H Calcium Phosphorus Magnesium Iron TIBC Ferritin Total Bilirubin AST ALT Lactate Dehydrogenase Total Creatine Kinase Troponin T C-Reactive Protein Albumin Urine WBC (Auto) Urine Creatinine Urine Total Protein Complement C3 Coronavirus (PCR) Hepatitis C Antibody Crossmatch 05/12/21 05/12/21 05/12/21 00:04 05:07 07:19 WBC 11.9 H RBC 3.00 L Hgb 9.1 L Hct 28.9 L MCV 96 H MCHC RDW 16.7 H Lymph % (Auto) 11.5 L [place] % (Auto) 8.2 H Lymph # (Auto) [place] # (Auto) 1.0 H Seg Neutrophils % 80.0 H Seg Neuts % (Manual) Lymphocytes % (Manual) Monocytes % (Manual) Seg Neutrophils # 9.6 H Seg Neutrophils # Man Lymphocytes # (Manual) Monocytes # (Manual) PT APTT D-Dimer Heparin Anti-Xa Level ABG pH ABG pO2 ABG HCO3 ABG O2 Saturation ABG Base Excess ABG Hemoglobin Oxyhemoglobin Sodium Potassium Chloride Carbon Dioxide BUN Creatinine Glucose POC Glucose 121 H 117 H Calcium Phosphorus Magnesium Iron TIBC Ferritin Total Bilirubin AST ALT Lactate Dehydrogenase Total Creatine Kinase Troponin T C-Reactive Protein Albumin Urine WBC (Auto) Urine Creatinine Urine Total Protein Complement C3 Coronavirus (PCR) Hepatitis C Antibody Crossmatch 05/12/21 05/12/21 05/12/21 07:19 07:19 07:19 WBC RBC Hgb Hct MCV MCHC RDW Lymph % (Auto) [place] % (Auto) Lymph # (Auto) [place] # (Auto) Seg Neutrophils % Seg Neuts % (Manual) Lymphocytes % (Manual) Monocytes % (Manual) Seg Neutrophils # Seg Neutrophils # Man Lymphocytes # (Manual) Monocytes # (Manual) PT APTT D-Dimer 2730.61 H Heparin Anti-Xa Level ABG pH ABG pO2 ABG HCO3 ABG O2 Saturation ABG Base Excess ABG Hemoglobin Oxyhemoglobin Sodium 146 H Potassium 5.1 H Chloride 112.4 H Carbon Dioxide 21 L BUN 61 H Creatinine 2.2 H Glucose 136 H POC Glucose Calcium 8.1 L Phosphorus Magnesium Iron TIBC Ferritin 640.2 H Total Bilirubin AST ALT Lactate Dehydrogenase 314 H Total Creatine Kinase Troponin T C-Reactive Protein 1.60 H Albumin Urine WBC (Auto) Urine Creatinine Urine Total Protein Complement C3 Coronavirus (PCR) Hepatitis C Antibody Crossmatch 05/12/21 05/12/21 05/12/21 11:10 16:10 16:38 WBC RBC Hgb Hct MCV MCHC RDW Lymph % (Auto) [place] % (Auto) Lymph # (Auto) [place] # (Auto) Seg Neutrophils % Seg Neuts % (Manual) Lymphocytes % (Manual) Monocytes % (Manual) Seg Neutrophils # Seg Neutrophils # Man Lymphocytes # (Manual) Monocytes # (Manual) PT APTT D-Dimer Heparin Anti-Xa Level 0.20 L ABG pH ABG pO2 ABG HCO3 ABG O2 Saturation ABG Base Excess ABG Hemoglobin Oxyhemoglobin Sodium Potassium Chloride Carbon Dioxide BUN Creatinine Glucose POC Glucose 131 H 157 H Calcium Phosphorus Magnesium Iron TIBC Ferritin Total Bilirubin AST ALT Lactate Dehydrogenase Total Creatine Kinase Troponin T C-Reactive Protein Albumin Urine WBC (Auto) Urine Creatinine Urine Total Protein Complement C3 Coronavirus (PCR) Hepatitis C Antibody Crossmatch 05/12/21 05/13/21 05/13/21 23:30 00:12 04:20 WBC RBC Hgb Hct MCV MCHC RDW Lymph % (Auto) [place] % (Auto) Lymph # (Auto) [place] # (Auto) Seg Neutrophils % Seg Neuts % (Manual) Lymphocytes % (Manual) Monocytes % (Manual) Seg Neutrophils # Seg Neutrophils # Man Lymphocytes # (Manual) Monocytes # (Manual) PT APTT D-Dimer Heparin Anti-Xa Level 0.13 L ABG pH ABG pO2 ABG HCO3 ABG O2 Saturation ABG Base Excess ABG Hemoglobin Oxyhemoglobin Sodium Potassium Chloride 111.2 H Carbon Dioxide BUN 53 H Creatinine 1.9 H Glucose 121 H POC Glucose 115 H Calcium 8.3 L Phosphorus Magnesium Iron TIBC Ferritin Total Bilirubin AST ALT Lactate Dehydrogenase Total Creatine Kinase Troponin T C-Reactive Protein Albumin Urine WBC (Auto) Urine Creatinine Urine Total Protein Complement C3 Coronavirus (PCR) Hepatitis C Antibody Crossmatch 05/13/21 05/13/21 05/13/21 04:20 11:15 11:29 WBC 13.1 H RBC 2.86 L Hgb 8.5 L Hct 26.9 L MCV MCHC RDW 15.7 H Lymph % (Auto) [place] % (Auto) Lymph # (Auto) [place] # (Auto) Seg Neutrophils % Seg Neuts % (Manual) Lymphocytes % (Manual) Monocytes % (Manual) Seg Neutrophils # Seg Neutrophils # Man Lymphocytes # (Manual) Monocytes # (Manual) PT APTT D-Dimer Heparin Anti-Xa Level ABG pH 7.456 H ABG pO2 106.0 H ABG HCO3 ABG O2 Saturation ABG Base Excess ABG Hemoglobin 7.1 L Oxyhemoglobin Sodium Potassium Chloride Carbon Dioxide BUN Creatinine Glucose POC Glucose 121 H Calcium Phosphorus Magnesium Iron TIBC Ferritin Total Bilirubin AST ALT Lactate Dehydrogenase Total Creatine Kinase Troponin T C-Reactive Protein Albumin Urine WBC (Auto) Urine Creatinine Urine Total Protein Complement C3 Coronavirus (PCR) Hepatitis C Antibody Crossmatch 05/13/21 05/13/21 05/14/21 16:38 23:43 04:26 WBC 14.2 H RBC 3.11 L Hgb 9.4 L Hct 29.3 L MCV MCHC RDW 15.4 H Lymph % (Auto) [place] % (Auto) Lymph # (Auto) [place] # (Auto) Seg Neutrophils % Seg Neuts % (Manual) Lymphocytes % (Manual) Monocytes % (Manual) Seg Neutrophils # Seg Neutrophils # Man Lymphocytes # (Manual) Monocytes # (Manual) PT APTT D-Dimer Heparin Anti-Xa Level ABG pH ABG pO2 ABG HCO3 ABG O2 Saturation ABG Base Excess ABG Hemoglobin Oxyhemoglobin Sodium Potassium Chloride Carbon Dioxide BUN Creatinine Glucose POC Glucose 119 H 55 L Calcium Phosphorus Magnesium Iron TIBC Ferritin Total Bilirubin AST ALT Lactate Dehydrogenase Total Creatine Kinase Troponin T C-Reactive Protein Albumin Urine WBC (Auto) Urine Creatinine Urine Total Protein Complement C3 Coronavirus (PCR) Hepatitis C Antibody Crossmatch 05/14/21 05/14/21 05/14/21 04:26 05:26 06:51 WBC RBC Hgb Hct MCV MCHC RDW Lymph % (Auto) [place] % (Auto) Lymph # (Auto) [place] # (Auto) Seg Neutrophils % Seg Neuts % (Manual) Lymphocytes % (Manual) Monocytes % (Manual) Seg Neutrophils # Seg Neutrophils # Man Lymphocytes # (Manual) Monocytes # (Manual) PT APTT D-Dimer Heparin Anti-Xa Level ABG pH ABG pO2 ABG HCO3 ABG O2 Saturation ABG Base Excess ABG Hemoglobin Oxyhemoglobin Sodium Potassium 3.4 L Chloride 107.6 H Carbon Dioxide BUN 42 H Creatinine 1.9 H Glucose POC Glucose 51 L 62 L Calcium Phosphorus Magnesium Iron TIBC Ferritin Total Bilirubin AST ALT Lactate Dehydrogenase Total Creatine Kinase Troponin T C-Reactive Protein Albumin Urine WBC (Auto) Urine Creatinine Urine Total Protein Complement C3 Coronavirus (PCR) Hepatitis C Antibody Crossmatch 05/14/21 05/14/21 05/14/21 09:58 12:05 12:08 WBC RBC Hgb Hct MCV MCHC RDW Lymph % (Auto) [place] % (Auto) Lymph # (Auto) [place] # (Auto) Seg Neutrophils % Seg Neuts % (Manual) Lymphocytes % (Manual) Monocytes % (Manual) Seg Neutrophils # Seg Neutrophils # Man Lymphocytes # (Manual) Monocytes # (Manual) PT APTT D-Dimer Heparin Anti-Xa Level ABG pH ABG pO2 ABG HCO3 ABG O2 Saturation ABG Base Excess ABG Hemoglobin Oxyhemoglobin Sodium Potassium 3.4 L Chloride Carbon Dioxide BUN 36 H Creatinine 1.8 H Glucose 133 H POC Glucose 60 L 127 H Calcium Phosphorus Magnesium Iron TIBC Ferritin Total Bilirubin AST ALT Lactate Dehydrogenase Total Creatine Kinase Troponin T C-Reactive Protein Albumin Urine WBC (Auto) Urine Creatinine Urine Total Protein Complement C3 Coronavirus (PCR) Hepatitis C Antibody Crossmatch 0105/14/21 05/15/21 17:20 23:37 05:34 WBC RBC Hgb Hct MCV MCHC RDW Lymph % (Auto) [place] % (Auto) Lymph # (Auto) [place] # (Auto) Seg Neutrophils % Seg Neuts % (Manual) Lymphocytes % (Manual) Monocytes % (Manual) Seg Neutrophils # Seg Neutrophils # Man Lymphocytes # (Manual) Monocytes # (Manual) PT APTT D-Dimer Heparin Anti-Xa Level ABG pH ABG pO2 ABG HCO3 ABG O2 Saturation ABG Base Excess ABG Hemoglobin Oxyhemoglobin Sodium Potassium Chloride Carbon Dioxide BUN Creatinine Glucose POC Glucose 144 H 115 H 119 H Calcium Phosphorus Magnesium Iron TIBC Ferritin Total Bilirubin AST ALT Lactate Dehydrogenase Total Creatine Kinase Troponin T C-Reactive Protein Albumin Urine WBC (Auto) Urine Creatinine Urine Total Protein Complement C3 Coronavirus (PCR) Hepatitis C Antibody Crossmatch 05/15/21 05/15/21 05/15/21 07:26 07:26 14:35 WBC 13.8 H RBC 3.32 L Hgb 10.0 L Hct 31.2 L MCV MCHC RDW 16.0 H Lymph % (Auto) [place] % (Auto) Lymph # (Auto) [place] # (Auto) Seg Neutrophils % Seg Neuts % (Manual) Lymphocytes % (Manual) Monocytes % (Manual) Seg Neutrophils # Seg Neutrophils # Man Lymphocytes # (Manual) Monocytes # (Manual) PT APTT D-Dimer Heparin Anti-Xa Level ABG pH ABG pO2 ABG HCO3 ABG O2 Saturation ABG Base Excess ABG Hemoglobin Oxyhemoglobin Sodium 149 H D Potassium 3.5 L Chloride 113.2 H Carbon Dioxide BUN 29 H Creatinine 1.8 H Glucose 113 H POC Glucose 143 H Calcium Phosphorus Magnesium Iron TIBC Ferritin Total Bilirubin AST ALT Lactate Dehydrogenase Total Creatine Kinase Troponin T C-Reactive Protein Albumin Urine WBC (Auto) Urine Creatinine Urine Total Protein Complement C3 Coronavirus (PCR) Hepatitis C Antibody Crossmatch 05/16/21 05/16/21 05/16/21 06:12 08:43 10:05 WBC RBC Hgb Hct MCV MCHC RDW Lymph % (Auto) [place] % (Auto) Lymph # (Auto) [place] # (Auto) Seg Neutrophils % Seg Neuts % (Manual) Lymphocytes % (Manual) Monocytes % (Manual) Seg Neutrophils # Seg Neutrophils # Man Lymphocytes # (Manual) Monocytes # (Manual) PT APTT D-Dimer Heparin Anti-Xa Level 0.21 L ABG pH ABG pO2 240.8 H ABG HCO3 ABG O2 Saturation 99.4 H ABG Base Excess -2.6 L ABG Hemoglobin 10.7 L Oxyhemoglobin Sodium Potassium Chloride Carbon Dioxide BUN Creatinine Glucose POC Glucose 34 L Calcium Phosphorus Magnesium Iron TIBC Ferritin Total Bilirubin AST ALT Lactate Dehydrogenase Total Creatine Kinase Troponin T C-Reactive Protein Albumin Urine WBC (Auto) Urine Creatinine Urine Total Protein Complement C3 Coronavirus (PCR) Hepatitis C Antibody Crossmatch 05/16/21 05/16/21 05/16/21 10:21 10:21 13:14 WBC 27.6 H RBC Hgb 11.4 L Hct MCV 99 H MCHC 30 L RDW 18.1 H Lymph % (Auto) [place] % (Auto) Lymph # (Auto) [place] # (Auto) Seg Neutrophils % Seg Neuts % (Manual) 83.0 H Lymphocytes % (Manual) 4.0 L Monocytes % (Manual) 9.0 H Seg Neutrophils # Seg Neutrophils # Man 22.9 H Lymphocytes # (Manual) 1.1 L Monocytes # (Manual) 2.5 H PT APTT D-Dimer Heparin Anti-Xa Level ABG pH ABG pO2 ABG HCO3 ABG O2 Saturation ABG Base Excess ABG Hemoglobin Oxyhemoglobin Sodium Potassium Chloride 108.8 H Carbon Dioxide 17 L BUN 26 H Creatinine 1.9 H Glucose 141 H POC Glucose Calcium Phosphorus Magnesium Iron TIBC Ferritin Total Bilirubin AST ALT Lactate Dehydrogenase Total Creatine Kinase Troponin T 0.503 H* C-Reactive Protein Albumin 3.1 L Urine WBC (Auto) Urine Creatinine Urine Total Protein Complement C3 Coronavirus (PCR) Hepatitis C Antibody Crossmatch 05/16/21 05/17/21 05/17/21 18:40 00:02 04:52 WBC RBC Hgb 8.8 L Hct 28.5 L D MCV MCHC RDW Lymph % (Auto) [place] % (Auto) Lymph # (Auto) [place] # (Auto) Seg Neutrophils % Seg Neuts % (Manual) Lymphocytes % (Manual) Monocytes % (Manual) Seg Neutrophils # Seg Neutrophils # Man Lymphocytes # (Manual) Monocytes # (Manual) PT APTT D-Dimer Heparin Anti-Xa Level ABG pH ABG pO2 ABG HCO3 ABG O2 Saturation ABG Base Excess ABG Hemoglobin Oxyhemoglobin Sodium Potassium Chloride Carbon Dioxide BUN Creatinine Glucose POC Glucose 114 H Calcium Phosphorus Magnesium Iron TIBC Ferritin Total Bilirubin AST ALT Lactate Dehydrogenase Total Creatine Kinase Troponin T 0.400 H* D C-Reactive Protein Albumin Urine WBC (Auto) Urine Creatinine Urine Total Protein Complement C3 Coronavirus (PCR) Hepatitis C Antibody Crossmatch 05/17/21 05/17/21 05/17/21 04:52 05:15 06:50 WBC RBC Hgb Hct MCV MCHC RDW Lymph % (Auto) [place] % (Auto) Lymph # (Auto) [place] # (Auto) Seg Neutrophils % Seg Neuts % (Manual) Lymphocytes % (Manual) Monocytes % (Manual) Seg Neutrophils # Seg Neutrophils # Man Lymphocytes # (Manual) Monocytes # (Manual) PT APTT D-Dimer Heparin Anti-Xa Level ABG pH ABG pO2 193.7 H ABG HCO3 27.7 H ABG O2 Saturation 99.2 H ABG Base Excess 3.4 H ABG Hemoglobin 9.2 L Oxyhemoglobin Sodium 146 H Potassium Chloride 110.3 H Carbon Dioxide BUN 33 H Creatinine 2.3 H Glucose 120 H POC Glucose 109 H Calcium Phosphorus Magnesium Iron TIBC Ferritin Total Bilirubin AST ALT Lactate Dehydrogenase Total Creatine Kinase Troponin T C-Reactive Protein Albumin Urine WBC (Auto) Urine Creatinine Urine Total Protein Complement C3 Coronavirus (PCR) Hepatitis C Antibody Crossmatch 05/17/21 05/17/21 05/17/21 10:30 11:33 15:35 WBC RBC Hgb Hct MCV MCHC RDW Lymph % (Auto) [place] % (Auto) Lymph # (Auto) [place] # (Auto) Seg Neutrophils % Seg Neuts % (Manual) Lymphocytes % (Manual) Monocytes % (Manual) Seg Neutrophils # Seg Neutrophils # Man Lymphocytes # (Manual) Monocytes # (Manual) PT APTT D-Dimer Heparin Anti-Xa Level ABG pH 7.457 H ABG pO2 162.5 H 103.7 H ABG HCO3 27.7 H 27.5 H ABG O2 Saturation ABG Base Excess 3.6 H ABG Hemoglobin 10.1 L 11.5 L Oxyhemoglobin Sodium Potassium Chloride Carbon Dioxide BUN Creatinine Glucose POC Glucose 122 H Calcium Phosphorus Magnesium Iron TIBC Ferritin Total Bilirubin AST ALT Lactate Dehydrogenase Total Creatine Kinase Troponin T C-Reactive Protein Albumin Urine WBC (Auto) Urine Creatinine Urine Total Protein Complement C3 Coronavirus (PCR) Hepatitis C Antibody Crossmatch 02/01/22 02/01/22 02/01/22 16:21 18:18 23:29 WBC RBC Hgb 9.6 L Hct 30.3 L MCV MCHC RDW Lymph % (Auto) [place] % (Auto) Lymph # (Auto) [place] # (Auto) Seg Neutrophils % Seg Neuts % (Manual) Lymphocytes % (Manual) Monocytes % (Manual) Seg Neutrophils # Seg Neutrophils # Man Lymphocytes # (Manual) Monocytes # (Manual) PT APTT D-Dimer Heparin Anti-Xa Level ABG pH ABG pO2 ABG HCO3 ABG O2 Saturation ABG Base Excess ABG Hemoglobin Oxyhemoglobin Sodium Potassium Chloride Carbon Dioxide BUN Creatinine Glucose POC Glucose 133 H 111 H Calcium Phosphorus Magnesium Iron TIBC Ferritin Total Bilirubin AST ALT Lactate Dehydrogenase Total Creatine Kinase Troponin T C-Reactive Protein Albumin Urine WBC (Auto) Urine Creatinine Urine Total Protein Complement C3 Coronavirus (PCR) Hepatitis C Antibody Crossmatch 05/18/21 05/18/21 05/18/21 04:15 04:15 05:01 WBC 16.8 H RBC 3.03 L Hgb 8.9 L Hct 28.7 L MCV 95 H MCHC 31 L RDW 16.4 H Lymph % (Auto) [place] % (Auto) Lymph # (Auto) [place] # (Auto) Seg Neutrophils % Seg Neuts % (Manual) Lymphocytes % (Manual) Monocytes % (Manual) Seg Neutrophils # Seg Neutrophils # Man Lymphocytes # (Manual) Monocytes # (Manual) PT APTT D-Dimer Heparin Anti-Xa Level ABG pH ABG pO2 ABG HCO3 ABG O2 Saturation ABG Base Excess ABG Hemoglobin Oxyhemoglobin Sodium Potassium Chloride Carbon Dioxide BUN 40 H Creatinine 2.1 H Glucose 115 H POC Glucose 113 H Calcium Phosphorus Magnesium Iron TIBC Ferritin Total Bilirubin AST ALT Lactate Dehydrogenase Total Creatine Kinase Troponin T C-Reactive Protein Albumin Urine WBC (Auto) Urine Creatinine Urine Total Protein Complement C3 Coronavirus (PCR) Hepatitis C Antibody Crossmatch 05/18/21 05/18/21 05/19/21 11:18 12:50 05:23 WBC 18.5 H RBC 3.31 L Hgb 9.9 L Hct 31.1 L MCV MCHC RDW 16.9 H Lymph % (Auto) [place] % (Auto) Lymph # (Auto) [place] # (Auto) Seg Neutrophils % Seg Neuts % (Manual) Lymphocytes % (Manual) Monocytes % (Manual) Seg Neutrophils # Seg Neutrophils # Man Lymphocytes # (Manual) Monocytes # (Manual) PT APTT D-Dimer Heparin Anti-Xa Level ABG pH ABG pO2 79.6 L ABG HCO3 28.0 H ABG O2 Saturation ABG Base Excess 3.3 H ABG Hemoglobin 6.2 L Oxyhemoglobin Sodium Potassium Chloride Carbon Dioxide BUN Creatinine Glucose POC Glucose 129 H Calcium Phosphorus Magnesium Iron TIBC Ferritin Total Bilirubin AST ALT Lactate Dehydrogenase Total Creatine Kinase Troponin T C-Reactive Protein Albumin Urine WBC (Auto) Urine Creatinine Urine Total Protein Complement C3 Coronavirus (PCR) Hepatitis C Antibody Crossmatch 05/19/21 05/19/21 05/19/21 05:23 05:23 11:24 WBC RBC Hgb Hct MCV MCHC RDW Lymph % (Auto) [place] % (Auto) Lymph # (Auto) [place] # (Auto) Seg Neutrophils % Seg Neuts % (Manual) Lymphocytes % (Manual) Monocytes % (Manual) Seg Neutrophils # Seg Neutrophils # Man Lymphocytes # (Manual) Monocytes # (Manual) PT APTT D-Dimer Heparin Anti-Xa Level ABG pH ABG pO2 ABG HCO3 ABG O2 Saturation ABG Base Excess ABG Hemoglobin Oxyhemoglobin Sodium Potassium Chloride Carbon Dioxide BUN 35 H 34 H Creatinine 2.0 H 2.1 H Glucose POC Glucose 111 H Calcium Phosphorus Magnesium Iron TIBC Ferritin Total Bilirubin AST ALT Lactate Dehydrogenase Total Creatine Kinase Troponin T C-Reactive Protein Albumin Urine WBC (Auto) Urine Creatinine Urine Total Protein Complement C3 Coronavirus (PCR) Hepatitis C Antibody Crossmatch 05/19/21 05/19/21 05/19/21 16:33 19:36 23:47 WBC RBC Hgb Hct MCV MCHC RDW Lymph % (Auto) [place] % (Auto) Lymph # (Auto) [place] # (Auto) Seg Neutrophils % Seg Neuts % (Manual) Lymphocytes % (Manual) Monocytes % (Manual) Seg Neutrophils # Seg Neutrophils # Man Lymphocytes # (Manual) Monocytes # (Manual) PT APTT 72.5 H* D-Dimer Heparin Anti-Xa Level ABG pH ABG pO2 ABG HCO3 ABG O2 Saturation ABG Base Excess ABG Hemoglobin Oxyhemoglobin Sodium Potassium Chloride Carbon Dioxide BUN Creatinine Glucose POC Glucose 131 H 122 H Calcium Phosphorus Magnesium Iron TIBC Ferritin Total Bilirubin AST ALT Lactate Dehydrogenase Total Creatine Kinase Troponin T C-Reactive Protein Albumin Urine WBC (Auto) Urine Creatinine Urine Total Protein Complement C3 Coronavirus (PCR) Hepatitis C Antibody Crossmatch 02/08/0505/20/21 05/20/21 05:14 05:14 06:12 WBC 19.7 H RBC 3.19 L Hgb 9.5 L Hct 29.9 L MCV MCHC RDW 17.3 H Lymph % (Auto) [place] % (Auto) Lymph # (Auto) [place] # (Auto) Seg Neutrophils % Seg Neuts % (Manual) Lymphocytes % (Manual) Monocytes % (Manual) Seg Neutrophils # Seg Neutrophils # Man Lymphocytes # (Manual) Monocytes # (Manual) PT APTT D-Dimer Heparin Anti-Xa Level ABG pH ABG pO2 ABG HCO3 ABG O2 Saturation ABG Base Excess ABG Hemoglobin Oxyhemoglobin Sodium Potassium Chloride Carbon Dioxide BUN 31 H Creatinine 2.1 H Glucose 130 H POC Glucose 120 H Calcium Phosphorus Magnesium Iron TIBC Ferritin Total Bilirubin AST ALT Lactate Dehydrogenase Total Creatine Kinase Troponin T C-Reactive Protein Albumin Urine WBC (Auto) Urine Creatinine Urine Total Protein Complement C3 Coronavirus (PCR) Hepatitis C Antibody Crossmatch 05/20/21 05/20/21 05/20/21 11:10 18:12 23:55 WBC RBC Hgb Hct MCV MCHC RDW Lymph % (Auto) [place] % (Auto) Lymph # (Auto) [place] # (Auto) Seg Neutrophils % Seg Neuts % (Manual) Lymphocytes % (Manual) Monocytes % (Manual) Seg Neutrophils # Seg Neutrophils # Man Lymphocytes # (Manual) Monocytes # (Manual) PT APTT D-Dimer Heparin Anti-Xa Level ABG pH ABG pO2 ABG HCO3 ABG O2 Saturation ABG Base Excess ABG Hemoglobin Oxyhemoglobin Sodium Potassium Chloride Carbon Dioxide BUN Creatinine Glucose POC Glucose 152 H 137 H 146 H Calcium Phosphorus Magnesium Iron TIBC Ferritin Total Bilirubin AST ALT Lactate Dehydrogenase Total Creatine Kinase Troponin T C-Reactive Protein Albumin Urine WBC (Auto) Urine Creatinine Urine Total Protein Complement C3 Coronavirus (PCR) Hepatitis C Antibody Crossmatch 05/21/21 05/21/21 05/21/21 03:12 03:12 05:53 WBC 26.2 H RBC 2.58 L Hgb 7.7 L Hct 24.2 L MCV MCHC RDW 17.8 H Lymph % (Auto) [place] % (Auto) Lymph # (Auto) [place] # (Auto) Seg Neutrophils % Seg Neuts % (Manual) Lymphocytes % (Manual) Monocytes % (Manual) Seg Neutrophils # Seg Neutrophils # Man Lymphocytes # (Manual) Monocytes # (Manual) PT APTT D-Dimer Heparin Anti-Xa Level ABG pH ABG pO2 ABG HCO3 ABG O2 Saturation ABG Base Excess ABG Hemoglobin Oxyhemoglobin Sodium 133 L Potassium 5.7 H D Chloride Carbon Dioxide 21 L BUN 49 H Creatinine 2.6 H Glucose 160 H POC Glucose 118 H Calcium Phosphorus Magnesium Iron TIBC Ferritin Total Bilirubin AST ALT Lactate Dehydrogenase Total Creatine Kinase Troponin T C-Reactive Protein Albumin Urine WBC (Auto) Urine Creatinine Urine Total Protein Complement C3 Coronavirus (PCR) Hepatitis C Antibody Crossmatch 05/21/21 05/22/21 05/22/21 18:00 00:13 05:05 WBC RBC Hgb Hct MCV MCHC RDW Lymph % (Auto) [place] % (Auto) Lymph # (Auto) [place] # (Auto) Seg Neutrophils % Seg Neuts % (Manual) Lymphocytes % (Manual) Monocytes % (Manual) Seg Neutrophils # Seg Neutrophils # Man Lymphocytes # (Manual) Monocytes # (Manual) PT APTT D-Dimer Heparin Anti-Xa Level ABG pH 7.500 H ABG pO2 56.6 L ABG HCO3 ABG O2 Saturation ABG Base Excess ABG Hemoglobin 6.7 L Oxyhemoglobin 94.8 L Sodium 136 L Potassium 5.2 H Chloride Carbon Dioxide BUN 59 H Creatinine 2.6 H Glucose 138 H POC Glucose 109 H Calcium Phosphorus Magnesium Iron TIBC Ferritin Total Bilirubin AST ALT Lactate Dehydrogenase Total Creatine Kinase Troponin T C-Reactive Protein Albumin Urine WBC (Auto) Urine Creatinine Urine Total Protein Complement C3 Coronavirus (PCR) Hepatitis C Antibody Crossmatch 05/22/21 05/22/21 05/22/21 06:07 11:49 16:33 WBC RBC Hgb Hct MCV MCHC RDW Lymph % (Auto) [place] % (Auto) Lymph # (Auto) [place] # (Auto) Seg Neutrophils % Seg Neuts % (Manual) Lymphocytes % (Manual) Monocytes % (Manual) Seg Neutrophils # Seg Neutrophils # Man Lymphocytes # (Manual) Monocytes # (Manual) PT APTT D-Dimer Heparin Anti-Xa Level ABG pH ABG pO2 ABG HCO3 ABG O2 Saturation ABG Base Excess ABG Hemoglobin Oxyhemoglobin Sodium Potassium Chloride Carbon Dioxide BUN Creatinine Glucose POC Glucose 110 H 117 H 119 H Calcium Phosphorus Magnesium Iron TIBC Ferritin Total Bilirubin AST ALT Lactate Dehydrogenase Total Creatine Kinase Troponin T C-Reactive Protein Albumin Urine WBC (Auto) Urine Creatinine Urine Total Protein Complement C3 Coronavirus (PCR) Hepatitis C Antibody Crossmatch 05/23/21 05/23/21 05/23/21 04:48 04:48 07:12 WBC 21.1 H RBC 2.03 L Hgb 6.2 L Hct 19.4 L* MCV 96 H MCHC RDW 17.5 H Lymph % (Auto) [place] % (Auto) Lymph # (Auto) [place] # (Auto) Seg Neutrophils % Seg Neuts % (Manual) Lymphocytes % (Manual) Monocytes % (Manual) Seg Neutrophils # Seg Neutrophils # Man Lymphocytes # (Manual) Monocytes # (Manual) PT APTT D-Dimer Heparin Anti-Xa Level ABG pH ABG pO2 ABG HCO3 ABG O2 Saturation ABG Base Excess ABG Hemoglobin Oxyhemoglobin Sodium Potassium Chloride Carbon Dioxide BUN 62 H Creatinine 2.8 H Glucose 110 H POC Glucose Calcium Phosphorus Magnesium Iron TIBC Ferritin Total Bilirubin AST ALT Lactate Dehydrogenase Total Creatine Kinase Troponin T C-Reactive Protein Albumin Urine WBC (Auto) Urine Creatinine Urine Total Protein Complement C3 Coronavirus (PCR) Hepatitis C Antibody Crossmatch See Detail 05/23/21 05/23/21 05/23/21 11:19 14:15 16:12 WBC RBC Hgb Hct MCV MCHC RDW Lymph % (Auto) [place] % (Auto) Lymph # (Auto) [place] # (Auto) Seg Neutrophils % Seg Neuts % (Manual) Lymphocytes % (Manual) Monocytes % (Manual) Seg Neutrophils # Seg Neutrophils # Man Lymphocytes # (Manual) Monocytes # (Manual) PT APTT D-Dimer Heparin Anti-Xa Level ABG pH ABG pO2 294.7 H ABG HCO3 ABG O2 Saturation 99.5 H ABG Base Excess ABG Hemoglobin 6.5 L Oxyhemoglobin Sodium Potassium Chloride Carbon Dioxide BUN Creatinine Glucose POC Glucose 127 H 120 H Calcium Phosphorus Magnesium Iron TIBC Ferritin Total Bilirubin AST ALT Lactate Dehydrogenase Total Creatine Kinase Troponin T C-Reactive Protein Albumin Urine WBC (Auto) Urine Creatinine Urine Total Protein Complement C3 Coronavirus (PCR) Hepatitis C Antibody Crossmatch 05/23/21 05/23/21 05/23/21 16:30 16:30 18:54 WBC 21.7 H RBC 2.40 L Hgb 7.1 L Hct 22.9 L MCV 96 H MCHC 31 L RDW 16.8 H Lymph % (Auto) [place] % (Auto) Lymph # (Auto) [place] # (Auto) Seg Neutrophils % Seg Neuts % (Manual) Lymphocytes % (Manual) Monocytes % (Manual) Seg Neutrophils # Seg Neutrophils # Man Lymphocytes # (Manual) Monocytes # (Manual) PT APTT D-Dimer Heparin Anti-Xa Level ABG pH ABG pO2 ABG HCO3 ABG O2 Saturation ABG Base Excess ABG Hemoglobin Oxyhemoglobin Sodium Potassium Chloride Carbon Dioxide BUN Creatinine Glucose POC Glucose Calcium Phosphorus Magnesium Iron TIBC Ferritin Total Bilirubin AST ALT Lactate Dehydrogenase Total Creatine Kinase Troponin T C-Reactive Protein Albumin Urine WBC (Auto) 12.0 H Urine Creatinine 100.1 H Urine Total Protein Complement C3 Coronavirus (PCR) Hepatitis C Antibody Crossmatch 05/23/21 05/24/21 05/24/21 Unknown 00:11 04:11 WBC 16.7 H RBC 2.19 L Hgb 6.4 L Hct 20.5 L MCV MCHC 31 L RDW 17.0 H Lymph % (Auto) [place] % (Auto) Lymph # (Auto) [place] # (Auto) Seg Neutrophils % Seg Neuts % (Manual) Lymphocytes % (Manual) Monocytes % (Manual) Seg Neutrophils # Seg Neutrophils # Man Lymphocytes # (Manual) Monocytes # (Manual) PT APTT D-Dimer Heparin Anti-Xa Level ABG pH ABG pO2 ABG HCO3 ABG O2 Saturation ABG Base Excess ABG Hemoglobin Oxyhemoglobin Sodium Potassium Chloride Carbon Dioxide BUN Creatinine Glucose POC Glucose 110 H Calcium Phosphorus Magnesium Iron 10 L TIBC 151 L Ferritin Total Bilirubin AST ALT Lactate Dehydrogenase 311 H Total Creatine Kinase Troponin T C-Reactive Protein Albumin Urine WBC (Auto) Urine Creatinine Urine Total Protein Complement C3 Coronavirus (PCR) Hepatitis C Antibody Crossmatch 05/24/21 05/24/21 05/24/21 04:11 05:10 09:55 WBC RBC Hgb Hct MCV MCHC RDW Lymph % (Auto) [place] % (Auto) Lymph # (Auto) [place] # (Auto) Seg Neutrophils % Seg Neuts % (Manual) Lymphocytes % (Manual) Monocytes % (Manual) Seg Neutrophils # Seg Neutrophils # Man Lymphocytes # (Manual) Monocytes # (Manual) PT APTT D-Dimer Heparin Anti-Xa Level ABG pH ABG pO2 141.9 H ABG HCO3 ABG O2 Saturation ABG Base Excess ABG Hemoglobin 6.5 L Oxyhemoglobin Sodium Potassium Chloride Carbon Dioxide BUN 78 H Creatinine 2.8 H Glucose 119 H POC Glucose 108 H Calcium Phosphorus 5.30 H Magnesium 2.60 H Iron TIBC Ferritin Total Bilirubin AST 152 H ALT 125 H Lactate Dehydrogenase Total Creatine Kinase Troponin T C-Reactive Protein Albumin 2.5 L Urine WBC (Auto) Urine Creatinine Urine Total Protein Complement C3 Coronavirus (PCR) Hepatitis C Antibody Crossmatch 05/25/21 05/25/21 05/25/21 04:25 04:25 05:19 WBC 13.8 H RBC 2.78 L Hgb 8.3 L Hct 25.6 L MCV MCHC RDW 16.2 H Lymph % (Auto) [place] % (Auto) Lymph # (Auto) [place] # (Auto) Seg Neutrophils % Seg Neuts % (Manual) Lymphocytes % (Manual) Monocytes % (Manual) Seg Neutrophils # Seg Neutrophils # Man Lymphocytes # (Manual) Monocytes # (Manual) PT APTT D-Dimer Heparin Anti-Xa Level ABG pH ABG pO2 ABG HCO3 ABG O2 Saturation ABG Base Excess ABG Hemoglobin Oxyhemoglobin Sodium Potassium Chloride Carbon Dioxide BUN 76 H Creatinine 2.6 H Glucose 110 H POC Glucose 123 H Calcium 8.1 L Phosphorus Magnesium Iron TIBC Ferritin Total Bilirubin AST ALT Lactate Dehydrogenase Total Creatine Kinase Troponin T C-Reactive Protein Albumin Urine WBC (Auto) Urine Creatinine Urine Total Protein Complement C3 Coronavirus (PCR) Hepatitis C Antibody Crossmatch 05/25/21 09:40 WBC RBC Hgb Hct MCV MCHC RDW Lymph % (Auto) [place] % (Auto) Lymph # (Auto) [place] # (Auto) Seg Neutrophils % Seg Neuts % (Manual) Lymphocytes % (Manual) Monocytes % (Manual) Seg Neutrophils # Seg Neutrophils # Man Lymphocytes # (Manual) Monocytes # (Manual) PT APTT D-Dimer Heparin Anti-Xa Level ABG pH ABG pO2 150.9 H ABG HCO3 ABG O2 Saturation ABG Base Excess ABG Hemoglobin 7.0 L Oxyhemoglobin Sodium Potassium Chloride Carbon Dioxide BUN Creatinine Glucose POC Glucose Calcium Phosphorus Magnesium Iron TIBC Ferritin Total Bilirubin AST ALT Lactate Dehydrogenase Total Creatine Kinase Troponin T C-Reactive Protein Albumin Urine WBC (Auto) Urine Creatinine Urine Total Protein Complement C3 Coronavirus (PCR) Hepatitis C Antibody Crossmatch Chest x-ray: image reviewed (clear) Allied health notes reviewed: nursing
--- NOTE | 2021-05-25 13:22 | Consultation ---
History of Present Illness Consult date: 05/25/21 Chief complaint: Respiratory failure - History of present illness History of present illness: 56-year-old male presented to the emergency room with chest pain shortness of breath. Patient was found to have Covid pneumonia. Patient was intubated for respiratory failure and failed extubation 3 times. General surgery consulted for tracheostomy and percutaneous gastrostomy placement. Past History Past Medical History: atrial fib, CAD, DVT, hypertension Past Surgical History: No surgical history Social history: smoking, other (cocaine) Family history: CAD Medications and Allergies Allergies Allergy/AdvReac Type Severity Reaction Status Date / Time No Known Allergies Allergy Verified 05/08/21 07:47 Home Medications Medication Instructions Recorded Confirmed Last Taken Type Cefpodoxime Proxetil 200 mg PO Q12H #10 tablet 09/11/20 05/19/21 Unknown Rx Famotidine [Pepcid] 20 mg PO BID #30 tablet 04/13/21 05/19/21 Unknown Rx Losartan [Cozaar] 100 mg PO QDAY #60 tablet 04/13/21 05/19/21 Unknown Rx Metoprolol Xl [Metoprolol 25 mg PO QDAY #30 tablet 04/13/21 05/19/21 Unknown Rx SUCCINATE ER TAB] NIFEdipine XL [Procardia Xl] 60 mg PO Q12HR #60 tablet 04/13/21 05/19/21 Unknown Rx hydrALAZINE [Apresoline TAB] 50 mg PO Q8HR #180 tablet 04/13/21 05/19/21 Unknown Rx Active Meds: Active Medications Acetaminophen (Acetaminophen 325 Mg Tab) 650 mg PO Q4H PRN PRN Reason: Pain MILD(1-3)/Fever >100.5/MARIA Last Admin: 05/25/21 08:13 Dose: 650 mg Acetaminophen (Acetaminophen 650 Mg Rect Supp) 650 mg NM Q4H PRN PRN Reason: Pain, Mild (1-3) Last Admin: 05/11/21 16:25 Dose: 650 mg Atorvastatin Calcium (Atorvastatin 40 Mg Tab) 40 mg FEEDTUBE QHS [facility] Last Admin: 05/24/21 21:46 Dose: 40 mg Chlordiazepoxide HCl (Chlordiazepoxide 25 Mg Cap) 50 mg PO TID [facility] Stop: 05/27/21 19:59 Last Admin: 05/25/21 09:09 Dose: 50 mg Chlordiazepoxide HCl (Chlordiazepoxide 25 Mg Cap) 25 mg PO TID [facility] Stop: 05/30/21 19:59 Dextrose (Dextrose 10% *Hypoglycemia) 0 ml IV PRN PRN PRN Reason: Hypoglycemia Last Admin: 05/14/21 06:55 Dose: 250 ml Fentanyl (Fentanyl 100 Mcg/2 Ml Inj) 50 mcg IV Q10MIN PRN PRN Reason: ANALGESIA Haloperidol Lactate (Haloperidol Lactate 5 Mg/1 Ml Inj) 5 mg IV Q6H PRN PRN Reason: Agitation Last Admin: 05/18/21 19:52 Dose: 5 mg Hydralazine HCl (Hydralazine 25 Mg Tab) 50 mg PO Q8HR RISHI Last Admin: 05/24/21 21:45 Dose: 50 mg Hydrophilic Ointment (Lip Therapy Vaseline) 1 applic TP Q2HR PRN PRN Reason: Dry Lips Sodium Chloride (Nacl 0.45% 1000 Ml) 1,000 mls @ 75 mls/hr IV DIRECT RISHI Last Admin: 05/25/21 06:19 Dose: 125 mls/hr Ertapenem 0.5 gm/ Sodium (Chloride) 50 mls @ 100 mls/hr IV Q24H RISHI Last Admin: 05/24/21 18:40 Dose: 100 mls/hr Fentanyl Citrate (Fentanyl Drip Premix) 2,000 mcg in 100 mls @ 4.082 mls/hr IV TITR RISHI; Protocol Pantoprazole Sodium 80 mg/ (Sodium Chloride) 100 mls @ 10 mls/hr IV DIRECT RISHI Last Admin: 05/25/21 05:06 Dose: 8 mg/hr, 10 mls/hr Insulin Human Lispro (Insulin Lispro 100 Unit/Ml) 0 unit SUB-Q Q6HR PRN; Protocol PRN Reason: Hyperglycemia Last Admin: 05/12/21 16:49 Dose: 2 unit Labetalol HCl (Labetalol 20 Mg/4 Ml Inj) 10 mg IV Q4H PRN PRN Reason: sbp> 160. Last Admin: 05/25/21 08:15 Dose: 10 mg Metoprolol Tartrate (Metoprolol Tartrate 25 Mg Tab) 25 mg FEEDTUBE TID [facility] Last Admin: 05/25/21 09:10 Dose: 25 mg Multi-Ingred Cream/Lotion/Oil/Oint (Mineral Oil/Petrolatum, White Ophth Oint 3.5 Gm) 1 applic OU Q4HR PRN PRN Reason: Dry Eye(s) Ondansetron HCl (Ondansetron 4 Mg/2 Ml Inj) 4 mg IV Q8H PRN PRN Reason: Nausea And Vomiting Last Admin: 05/04/21 21:51 Dose: 4 mg Quetiapine Fumarate (Quetiapine 100 Mg Tab) 150 mg PO BID [facility] Last Admin: 05/25/21 09:10 Dose: 150 mg Senna/Docusate Sodium (Sennosides/Docusate Sodium 8.6/50 Mg Tab) 1 tab FEEDTUBE BID [facility] Last Admin: 05/25/21 09:10 Dose: 1 tab Sodium Chloride (Sodium Chloride 0.9% 10 Ml Flush Syringe) 10 ml IV BID [facility] Last Admin: 05/25/21 09:11 Dose: 10 ml Sodium Chloride (Sodium Chloride 0.9% 10 Ml Flush Syringe) 10 ml IV PRN PRN PRN Reason: LINE FLUSH Last Admin: 05/06/21 13:59 Dose: 10 ml Sodium Chloride (Sodium Chloride 0.9% 50 Ml Ivpb) 10 ml IV PRN PRN PRN Reason: FLUSH Review of Systems ROS unobtainable: due to endotracheal tube Exam Vital Signs Temp Pulse Resp BP Pulse Ox 98.9 F 86 18 167/127 98 05/04/21 05:09 05/04/21 05:09 05/04/21 05:09 05/04/21 05:09 05/04/21 05:09 - General physical appearance Positive: no distress, no pain - Neck Positive: no masses, trachea midline, other - Respiratory Positive: normal expansion, normal respiratory effort, other (intubated on vent) - Cardiovascular Heart Sounds: Present: S1 & S2 - Extremities Extremities: no ischemia - Abdomen Abdomen: Present: soft, other (getting tube feeds). Absent: tender, distended, guarding, rigid - Neurologic Neurologic: other (responsive to stimulation) Results - Labs 05/25/21 04:25 05/25/21 04:25 Abnormal lab results 05/23/21 05/25/21 05/25/21 Range/Units 07:12 04:25 04:25 WBC 13.8 H (4.5-11.0) K/mm3 RBC 2.78 L (3.65-5.03) M/mm3 Hgb 8.3 L (11.8-15.2) gm/dl Hct 25.6 L (35.5-45.6) % RDW 16.2 H (13.2-15.2) % ABG pO2 (80.0-90.0) mm Hg ABG Hemoglobin (14.0-18.0) gm/dl BUN 76 H (9-20) mg/dL Creatinine 2.6 H (0.8-1.3) mg/dL Glucose 110 H (75-100) mg/dL POC Glucose (70-105) mg/dL Calcium 8.1 L (8.4-10.2) mg/dL Crossmatch See Detail 05/25/21 05/25/21 Range/Units 05:19 09:40 WBC (4.5-11.0) K/mm3 RBC (3.65-5.03) M/mm3 Hgb (11.8-15.2) gm/dl Hct (35.5-45.6) % RDW (13.2-15.2) % ABG pO2 150.9 H (80.0-90.0) mm Hg ABG Hemoglobin 7.0 L (14.0-18.0) gm/dl BUN (9-20) mg/dL Creatinine (0.8-1.3) mg/dL Glucose (75-100) mg/dL POC Glucose 123 H (70-105) mg/dL Calcium (8.4-10.2) mg/dL Crossmatch Diabetes panel 05/25/21 Range/Units 04:25 Sodium 139 (137-145) mmol/L Potassium 3.9 (3.6-5.0) mmol/L Chloride 104.8 (98-107) mmol/L Carbon Dioxide 23 (22-30) mmol/L BUN 76 H (9-20) mg/dL Creatinine 2.6 H (0.8-1.3) mg/dL Glucose 110 H (75-100) mg/dL Calcium 8.1 L (8.4-10.2) mg/dL Calcium panel 05/25/21 05/25/21 Range/Units 04:25 04:25 Calcium 8.1 L (8.4-10.2) mg/dL Phosphorus 3.70 D (2.5-4.5) mg/dL Pituitary panel 05/25/21 Range/Units 04:25 Sodium 139 (137-145) mmol/L Potassium 3.9 (3.6-5.0) mmol/L Chloride 104.8 (98-107) mmol/L Carbon Dioxide 23 (22-30) mmol/L BUN 76 H (9-20) mg/dL Creatinine 2.6 H (0.8-1.3) mg/dL Glucose 110 H (75-100) mg/dL Calcium 8.1 L (8.4-10.2) mg/dL Adrenal panel 05/25/21 Range/Units 04:25 Sodium 139 (137-145) mmol/L Potassium 3.9 (3.6-5.0) mmol/L Chloride 104.8 (98-107) mmol/L Carbon Dioxide 23 (22-30) mmol/L BUN 76 H (9-20) mg/dL Creatinine 2.6 H (0.8-1.3) mg/dL Glucose 110 H (75-100) mg/dL Calcium 8.1 L (8.4-10.2) mg/dL Assessment and Plan 56-year-old male with respiratory failure and recent Covid positivity. Afebrile and stable. Pt currently has no identified official POA. Spoke with Case management who will try to get friend to sign documents to be able to authorize consent. Will follow up pt for consent once person is established. Discussed with Dr. Liang who will do trach.
--- NOTE | 2021-05-25 13:27 | Progress Note ---
<VALENTIN SANCHEZ - Last Filed: 05/25/21 15:22> Assessment and Plan Assessment and plan: This is a 56-year-old male with nicotine and cocaine abuse, atrial fibrillation, hypertension and chronic medication noncompliance complicated by homelessness admitted with acute hypoxic respiratory failure, COVID-19 pneumonia, green saminitis, NSTEMI, hypertensive emergency and acute kidney injury A/P Neuro: Metabolic encephalopathy, polysubstance abuse (but amphetamine and tobacco) -Sedated with fentanyl drip -Goal RASS 0 to -1 -On CIWA protocol -Librium and Seroquel taper started 05/25 -Maintain sleep-wake cycle -Monitor QTc -Avoid delirium -UDS positive for amphetamines -We will need cessation counseling when appropriate Cardio: Heart failure reduced EF, cardiomyopathy, NSTEMI, paroxysmal atrial fibrillation, S/p hypertensive emergency, h/o HTN -Continue beta-sylvia, aspirin, statin, hydral, titrate as needed -Cardiology consulted, appreciate recommendations -Echo 05/04/2021-EF 35 to 40%. Moderate concentric LVH. Moderate global hypokinesis of left ventricle. Mild mitral regurgitation. Mild pulmonary hypertension. Echocardiogram reviewed (08/27/2020): LVEF is 50 to 55%. Mild to moderate concentric LVF. Severe diastolic dysfunction is present (restrictive filling). Right ventricle is mildly hypokinetic. RVSP is 48 mmHg. No valvular abnormalities. -S/p Cardizem drip for atrial fibrillation -Blood pressure monitoring per protocol Respiratory: Acute hypoxic respiratory failure -[facility] consulted, appreciate recommendations -Intubated on 05/05 in the ED and extubated 05/13, Re-intubated on 05/16 and Extubated on 05/18 -Reintubated 05/23 with 8.0 OETT at 22 cm at the lips -s/p bipap -A.m. vent settings: Assist control tidal volume 450, rate 16, PEEP 8, FiO2 40% -AM ABG noted -wean FiO2 -VAP bundle -Continues SPO2 monitoring GI: ? GIB, Transaminitis, h/o hepatitis C -GI consulted, appreciate recommendations -IV Protonix drip -change to BID dosing tomorrow -24-hour +[id number] -BR: Senokot -Renal ultrasound showed incidental finding of cholelithiasis -Continue supportive management -Trend LFTs : Acute kidney injury likely secondary to vasomotor nephropathy -Nephrology consulted, appreciate recommendations -IVF per nephrology -Avoid nephrotoxic medications -Renally dose medication -Strict intake and output -FeNa indicates prerenal -Renal ultrasound completed: 1.7 hyper echoic mass within the left upper pole -Monitor follow-up with CT once stable ID: Severe COVID-19 pneumonia, Enterobacter aerogenes PNA, s/p Enterococcus faecalis UTI -Infectious disease consulted, appreciate recommendations -COVID-19 PCR positive -s/p droplet/precautions for 21 days -Not a candidate for remdesivir given acute kidney injury -s/p Dexamethasone for 10 days -Anticoagulation per hospital protocol -Trend COVID-19 from 2 markers (ferritin, D-dimer, CRP, LDH) -05/09 urine culture with Enterococcus faecalis -05/16 tracheal aspirate with Enterobacter aerogenes -Due to persistent fevers switched cefepime to IV ertapenem renally adjusted 05/24 -GC negative Heme: Anemia, Acute DVT (resolved) -Bilateral lower extremity Doppler ultrasound shows acute DVT -heparin gtt converted to DOAC but now d/c -vascular surgery consulted for possible IVC filter placement, appreciate recommendations -repeat doppler shows no DVT -recommends subq heparin TID for prophylaxis if tolerated -Pulmonary perfusion study showed low probability of pulmonary embolism -S/p 3 unit PRBC -Trend CBC -Transfuse for hemoglobin less than 7 Endo: NAD -Accu-Cheks every 6 -SSI -Avoid hypoglycemia The high probability of a clinically significant, sudden or life threatening deterioration of the [cardio/resp] system(s) required my full and direct attention, intervention and personal management. The aggregate critical care time was [60] minutes. This time is in addition to time spent performing reported procedures but includes the following: [x] Data Review and interpretation [x] Patient assessment and monitoring of vital signs [x] Documentation [x] Medication orders and management Disposition Plan: icu Total Time Spent with Patient (Minutes): 60 History Interval history: This is a 56-year-old male with a nicotine abuse, A. fib, hypertension, and c hronic medication noncompliance and homelessness who presented to emergency department on 05/04 with complaints of dyspnea on exertion for the past month worsening over the past 3 days, intermittent left-sided chest tightness with activity, and persistent cough without fever. Work-up in the emergency department revealed anemia, hyponatremia, elevated BUN/creatinine and transaminitis. Patient was admitted to the hospitalist service with acute kidney injury and accelerated hypertension. Hospital course to date 05/04/2021. Cardiology was considering patient for [employer]. However, patient with elevated creatinine therefore will hold off on cath evaluation. Nephrology consultation for acute kidney injury. Etiology likely secondary to vasomotor nephropathy/dehydration. We will start IV fluid hydration. Check renal ultrasound to rule out obstructive uropathy. We will resume home medications for the accelerated hypertension 05/05/2021. Echocardiogram reveals EF 35-40% with moderate concentric left ventricular hypertrophy. Moderate global hypokinesis of left ventricle. Mild mitral regurgitation. Mild pulmonary hypertension. Troponins are believed to be elevated in the setting of acute kidney injury. No beta-blockers due to cocaine use continue heparin and nitro drip. Continue CIWA protocol. Await urine studies 05/06/2021. Patient decompensated yesterday with worsening respiratory failure and difficulty to protect airway. Patient was breathing sonorously, and hypoxic. Patient was intubated and currently is on mechanical ventilation. Patient with AC mode ventilation rate of 20, tidal volume 450, FiO2 40% and PEEP of 6. COVID PCR testing on 05/05/2021 was found to be positive. Echocardiogram completed on this admission shows worsening EF from August 2020. Echocardiogram now reveals moderate concentric left ventricular hypertrophy with moderate global hypokinesis and EF of 35-40%. Mild pulmonary hypertension. 05/08: Continue current management, renal stable, LFTs stable and if improved will start on statin therapy. 05/09: Patient is febrile, will panculture, PSV today. CRP pending. Mucoid discharge noted from meatus which was sent for culture. Hypernatremia persists, free water flushes increased 05/10: PSV trial per [facility], T-max 102.3, given mildly elevated procalcitonin started on ceftriaxone 2 g every 24 for 2 days per ID. Overnight patient had atrial fibrillation which was treated with Cardizem drip and converted to sinus rhythm. Metoprolol p.o. increased to 3 times daily. 05/11: Patient still running fevers and if still febrile tomorrow will escalate to cefepime per ID as he is currently on ceftriaxone, [facility] attempted PSV but patient became agitated and was switched back to pressure control. Lower extremity ultrasound shows acute DVT and started on heparin drip. Started on scheduled Librium. Patient remains with hypernatremia and elevated creatinine and on IV fluids. Free water flushes adjusted. Started on vancomycin today 05/12: Patient placed on pressure support trial without fentanyl, hypernatremia improving, hyperkalemia noted. Slight improvement to renal function. 05/13: Patient was extubated today, ID change antibiotics to Zosyn for Enterococcus, was started tapering Librium in the morning, renal function slightly improved. Possible transfer to floor tomorrow. ST evaluation for swallow ordered. 05/14: Patient became hypoglycemic overnight and started on dextrose IV fluids. Accu-Chek fingersticks have been low but on a.m. BMP patient blood glucose is 100. Other BMP pending. Feeding tube replaced due to need for enteral access and patient being severely confused. Renal functions remains the same. Upon confirmation will restart tube feedings, p.o. medications and free water fl ushes. 05/15: Remains confused/somnolent on my encounter. Librium taper in 24hrs per PCCM recs. Remains hypertensive. Added amlodipine 10 mg NG and labetalol prn. ST eval today but doubt he will participate. Potassium replaced. Renal function improving overall, however, hypernatremic. Inc TF FWF to 250 cc q4hr. 05/16: Respiratory distress this AM, hypoxic in 60's not protecting airway. Required intubation, patient now ICU patient. Reduce fluid to FWF only, IVF d/c off jun. CXR ordered demonstrates pulmonary edema. Lasix 40 mg IV bid ordered. Troponin elevated, continue heparin gtt. Would recommend decreasing sedating medications at this point, agree with librium taper. 05/17: Patient remains on the vent and sedated, RASS -3. Plan for possible sedation vacation today. D/w [facility] plan to wean for possible extubation on the vent. 2/2: Tolerated 4hrs of sedation vacation yesterday, on low dose fentanyl this am. Patient is tolerating PST this am. Plan to wean off sedation and wean vent setting for possible extubation today. 23: s/p extubation now stable on 3L NC. Lethargic this am, will decreased Seroquel. Speech consult for swallow eval, continue enteral nutrition via NGT for now. Hypertensive throughout the night, Norvac added. Remains on heparin gtt for DVT, might need to transition to PO AC, will d/w CCM. Patient is stable for transfer to [facility] 05/20: Continue sepsis work up considering fever, aspiration precautions. Discussed with nursing staff will hold am seroquel. Continue tube feed. RENAL Function remains relatively stable, possible has peaked. 05/21: Patient seen and examined, resting but still with mild increase wob, CXR concerning with right lobar infiltrate, continue antibiotics, will give kayxalate in addition due to hyperkalemia, Will discuss with ID due to rising luekocytosis possible worsening sepsis. 05/22: Patient remains on BIPAP, still sedated appearing, cxr concerning for possible aspiration, unfortunately still worsening renal status. Will continue abx and continue collaboration with pulmonary team to ensure no over sedation. Continue abx, will add kayaxlate 05/23: Patient noted to have severe anemia today, will initiate GI work up and also Hemolysis work up. Will discuss with Vascular about possible IVC filter placement. Continue BIPAP, goal is to see if we can avert re-intubation. Transfuse 1 UNIT PRBC, Will discuss with Pulmonary about holding Eliquis for now. Renal failure still ongoing. 05/24: Patient had a positive occult and was anemic again today and received PRBC. GI was consulted. Repeat Dopplers are negative for DVT vascular recommends a CT/SQ heparin if tolerated and nephrology would like to increase IV fluids per FeNa results. Decrease metoprolol, seroquel and librium. surgery consult for trach/peg 05/25: RT decreased FiO2. GI signed off, Cr slightly improved, Anemia improved. Tmax 101.4 noted, abx per ID. Hospitalist Physical - Constitutional Vitals: Temp Pulse Resp BP Pulse Ox 99.7 F H 69 19 119/76 98 05/25/21 09:30 05/25/21 13:00 05/25/21 13:00 05/25/21 13:00 05/25/21 13:00 General appearance: Present: no acute distress - EENT Eyes: Present: PERRL, EOM intact ENT: dentition normal - Neck Neck: Present: normal ROM - Respiratory Respiratory effort: normal Respiratory: bilateral: diminished - Cardiovascular Rhythm: regular Heart Sounds: Present: S1 & S2. Absent: systolic murmur, diastolic murmur - Extremities Extremities: no ischemia, pulses intact, pulses symmetrical, normal temperature Peripheral Pulses: within normal limits - Abdominal General gastrointestinal: soft, non-tender, normal bowel sounds - Integumentary Integumentary: Present: warm, dry - Psychiatric Psychiatric: other (sedated) - Neurologic Neurologic: other (intact cough/gag, PERRL) - Allied Health Allied health notes reviewed: nursing, RT, social work HEART Score - HEART Score EKG: Non-specific Age: 45-65 Risk factors: 1-2 risk factors Troponin: Troponin T 0.400 ng/mL (0.00-0.029) H* D 05/16/21 18:40 Troponin: 1-3x normal limit - Critical Actions Critical Actions: 4-6 pts:12-16.6% risk of adverse cardiac event. Should be admitted Results - Labs CBC & Chem 7: 05/25/21 04:25 05/25/21 04:25 Labs: Laboratory Last Values WBC 13.8 K/mm3 (4.5-11.0) H 05/25/21 04:25 RBC 2.78 M/mm3 (3.65-5.03) L 05/25/21 04:25 Hgb 8.3 gm/dl (11.8-15.2) L 05/25/21 04:25 Hct 25.6 % (35.5-45.6) L 05/25/21 04:25 MCV 92 fl (84-94) 05/25/21 04:25 MCH 30 pg (28-32) 05/25/21 04:25 MCHC 33 % (32-34) 05/25/21 04:25 RDW 16.2 % (13.2-15.2) H 05/25/21 04:25 Plt Count 325 K/mm3 (140-440) 05/25/21 04:25 Lymph % (Auto) Hogshead Inspector 05/16/21 10:21 Spencer % (Auto) Hogshead Inspector 05/16/21 10:21 Eos % (Auto) Hogshead Inspector 05/16/21 10:21 Baso % (Auto) Hogshead Inspector 05/16/21 10:21 Lymph # (Auto) Hogshead Inspector 05/16/21 10:21 Spencer # (Auto) Hogshead Inspector 05/16/21 10:21 Eos # (Auto) Hogshead Inspector 05/16/21 10:21 Baso # (Auto) Hogshead Inspector 05/16/21 10:21 Add Manual Diff Complete 05/16/21 10:21 Total Counted 100 05/16/21 10:21 Seg Neutrophils % Hogshead Inspector 05/16/21 10:21 Seg Neuts % (Manual) 83.0 % (40.0-70.0) H 05/16/21 10:21 Band Neutrophils % 2.0 % 05/16/21 10:21 Lymphocytes % (Manual) 4.0 % (13.4-35.0) L 05/16/21 10:21 Reactive Lymphs % (Man) 0 % 05/16/21 10:21 Monocytes % (Manual) 9.0 % (0.0-7.3) H 05/16/21 10:21 Eosinophils % (Manual) 0 % (0.0-4.3) 05/16/21 10:21 Basophils % (Manual) 0 % (0.0-1.8) 05/16/21 10:21 Metamyelocytes % 0 % 05/16/21 10:21 Myelocytes % 2.0 % 05/16/21 10:21 Promyelocytes % 0 % 05/16/21 10:21 Blast Cells % 0 % 05/16/21 10:21 Nucleated RBC % Not Reportable 05/16/21 10:21 Seg Neutrophils # Hogshead Inspector 05/16/21 10:21 Seg Neutrophils # Man 22.9 K/mm3 (1.8-7.7) H 05/16/21 10:21 Band Neutrophils # 0.6 K/mm3 05/16/21 10:21 Lymphocytes # (Manual) 1.1 K/mm3 (1.2-5.4) L 05/16/21 10:21 Abs React Lymphs (Man) 0.0 K/mm3 05/16/21 10:21 Monocytes # (Manual) 2.5 K/mm3 (0.0-0.8) H 05/16/21 10:21 Eosinophils # (Manual) 0.0 K/mm3 (0.0-0.4) 05/16/21 10:21 Basophils # (Manual) 0.0 K/mm3 (0.0-0.1) 05/16/21 10:21 Metamyelocytes # 0.0 K/mm3 05/16/21 10:21 Myelocytes # 0.6 K/mm3 05/16/21 10:21 Promyelocytes # 0.0 K/mm3 05/16/21 10:21 Blast Cells # 0.0 K/mm3 05/16/21 10:21 WBC Morphology Not Reportable 05/16/21 10:21 Hypersegmented Neuts Not Reportable 05/16/21 10:21 Hyposegmented Neuts Not Reportable 05/16/21 10:21 Hypogranular Neuts Not Reportable 05/16/21 10:21 Smudge Cells Not Reportable 05/16/21 10:21 Toxic Granulation Not Reportable 05/16/21 10:21 Toxic Vacuolation Not Reportable 05/16/21 10:21 Dohle Bodies Not Reportable 05/16/21 10:21 Pelger-Huet Anomaly Not Reportable 05/16/21 10:21 Jesse Rods Not Reportable 05/16/21 10:21 Platelet Estimate Consistent w auto 05/16/21 10:21 Clumped Platelets Few 05/16/21 10:21 Plt Clumps, EDTA Not Reportable 05/16/21 10:21 Large Platelets Not Reportable 05/16/21 10:21 Giant Platelets Not Reportable 05/16/21 10:21 Platelet Satelliting Not Reportable 05/16/21 10:21 Plt Morphology Comment Not Reportable 05/16/21 10:21 RBC Morphology Not Reportable 05/16/21 10:21 Dimorphic RBCs Not Reportable 05/16/21 10:21 Polychromasia Not Reportable 05/16/21 10:21 Hypochromasia Not Reportable 05/16/21 10:21 Poikilocytosis Not Reportable 05/16/21 10:21 Anisocytosis 1+ 05/16/21 10:21 Microcytosis Not Reportable 05/16/21 10:21 Macrocytosis Few 05/16/21 10:21 Spherocytes Not Reportable 05/16/21 10:21 Pappenheimer Bodies Not Reportable 05/16/21 10:21 Sickle Cells Not Reportable 05/16/21 10:21 Target Cells Not Reportable 05/16/21 10:21 Tear Drop Cells Not Reportable 05/16/21 10:21 Ovalocytes Not Reportable 05/16/21 10:21 Helmet Cells Not Reportable 05/16/21 10:21 [place] Bodies Not Reportable 05/16/21 10:21 [place] Rings Not Reportable 05/16/21 10:21 [place] Cells Not Reportable 05/16/21 10:21 Bite Cells Not Reportable 05/16/21 10:21 Crenated Cell Not Reportable 05/16/21 10:21 Elliptocytes Not Reportable 05/16/21 10:21 Acanthocytes (Spur) Not Reportable 05/16/21 10:21 Rouleaux Not Reportable 05/16/21 10:21 Hemoglobin C Crystals Not Reportable 05/16/21 10:21 Schistocytes Not Reportable 05/16/21 10:21 Malaria parasites Not Reportable 05/16/21 10:21 Tomi Bodies Not Reportable 05/16/21 10:21 Hem Pathologist Commnt No 05/16/21 10:21 PT 14.9 Sec. (12.2-14.9) 05/25/21 04:25 INR 1.05 (0.87-1.13) 05/25/21 04:25 APTT 72.5 Sec. (24.2-36.6) H* 05/19/21 19:36 D-Dimer 2730.61 ng/mlDDU (0-234) H 05/12/21 07:19 Heparin Anti-Xa Level 0.47 U.I./ml (0.3-0.7) 05/19/21 05:23 ABG pH 7.406 pH Units (7.350-7.450) 05/25/21 09:40 ABG pCO2 41.2 mm Hg 05/25/21 09:40 ABG pO2 150.9 mm Hg (80.0-90.0) H 05/25/21 09:40 ABG HCO3 25.3 mmol/L (20.0-26.0) 05/25/21 09:40 ABG O2 Saturation 98.9 % (95.0-99.0) 05/25/21 09:40 ABG O2 Content 9.8 (0.0-44) 05/25/21 09:40 ABG Base Excess 0.6 mmol/L (-2.0-3.0) 05/25/21 09:40 ABG Hemoglobin 7.0 gm/dl (14.0-18.0) L 05/25/21 09:40 ABG Carboxyhemoglobin 1.8 % (0.0-5.0) 05/25/21 09:40 ABG Methemoglobin 0.6 % (0.0-1.5) 05/25/21 09:40 Oxyhemoglobin 96.5 % (95.0-99.0) 05/25/21 09:40 FiO2 40 % 05/25/21 09:40 Sodium 139 mmol/L (137-145) 05/25/21 04:25 Potassium 3.9 mmol/L (3.6-5.0) 05/25/21 04:25 Chloride 104.8 mmol/L (98-107) 05/25/21 04:25 Carbon Dioxide 23 mmol/L (22-30) 05/25/21 04:25 Anion Gap 15 mmol/L 05/25/21 04:25 BUN 76 mg/dL (9-20) H 05/25/21 04:25 Creatinine 2.6 mg/dL (0.8-1.3) H 05/25/21 04:25 Estimated GFR 26 ml/min 05/25/21 04:25 BUN/Creatinine Ratio 29 % 05/25/21 04:25 Glucose 110 mg/dL (75-100) H 05/25/21 04:25 POC Glucose 102 mg/dL (70-105) 05/25/21 11:48 Lactic Acid 0.90 mmol/L (0.7-2.0) 05/20/21 09:17 Calcium 8.1 mg/dL (8.4-10.2) L 05/25/21 04:25 Phosphorus 3.70 mg/dL (2.5-4.5) D 05/25/21 04:25 Magnesium 2.30 mg/dL (1.7-2.3) 05/25/21 04:25 Iron 10 ug/dL (49-181) L 05/23/21 Unknown TIBC 151 mcg/dL (250-450) L 05/23/21 Unknown Ferritin 640.2 ng/mL (30.0-300.0) H 05/12/21 07:19 Total Bilirubin 0.50 mg/dL (0.1-1.2) 05/24/21 04:11 AST 152 units/L (5-40) H 05/24/21 04:11 ALT 125 units/L (7-56) H 05/24/21 04:11 Alkaline Phosphatase 72 units/L (35-129) 05/24/21 04:11 Lactate Dehydrogenase 311 units/L (91-180) H 05/23/21 Unknown Total Creatine Kinase 406 units/L (55-170) H 05/04/21 08:42 Troponin T 0.400 ng/mL (0.00-0.029) H* D 05/16/21 18:40 C-Reactive Protein 1.60 mg/dL (0.00-1.30) H 05/12/21 07:19 Total Protein 6.6 g/dL (6.3-8.2) 05/24/21 04:11 Albumin 2.5 g/dL (3.9-5) L 05/24/21 04:11 Albumin/Globulin Ratio 0.6 % 05/24/21 04:11 Triglycerides 144 mg/dL (2-149) 05/10/21 04:57 Cholesterol 140 mg/dL (50-199) 05/04/21 07:25 LDL Cholesterol Direct 89 mg/dL (50-130) 05/04/21 07:25 HDL Cholesterol 48 mg/dL (40-59) 05/04/21 07:25 Cholesterol/HDL Ratio 2.91 % 05/04/21 07:25 Procalcitonin 0.63 ng/mL (<0.15) 05/09/21 15:53 Urine Color Yellow (Yellow) 05/23/21 16:30 Urine Turbidity Turbid (Clear) 05/23/21 16:30 Urine pH 5.0 (5.0-7.0) 05/23/21 16:30 Ur Specific [place] 1.014 (1.003-1.030) 05/23/21 16:30 Urine Protein 100 mg/dl mg/dL (Negative) 05/23/21 16:30 Urine Glucose (UA) Neg mg/dL (Negative) 05/23/21 16:30 Urine Ketones Neg mg/dL (Negative) 05/23/21 16:30 Urine Blood Mod (Negative) 05/23/21 16:30 Urine Nitrite Neg (Negative) 05/23/21 16:30 Urine Bilirubin Neg (Negative) 05/23/21 16:30 Urine Urobilinogen < 2.0 mg/dL (<2.0) 05/23/21 16:30 Ur Leukocyte Esterase Tr (Negative) 05/23/21 16:30 Urine WBC (Auto) 12.0 /HPF (0.0-6.0) H 05/23/21 16:30 Urine RBC (Auto) 3.0 /HPF (0.0-6.0) 05/23/21 16:30 U Epithel Cells (Auto) 1.0 /HPF (0-13.0) 05/23/21 16:30 Urine Bacteria (Auto) 1+ /HPF (Negative) 05/23/21 16:30 Uric Acid Crystals Few 05/09/21 00:40 Triple Phos Crystals 2+ 05/09/21 13:22 Amorphous Crystals 2+ 05/23/21 16:30 Urine Mucus Few /HPF 05/23/21 16:30 Urine Creatinine 100.1 mg/dL (0.1-20.0) H 05/23/21 16:30 Protein/Creatinin Ratio 0.42 05/10/21 11:03 Urine Sodium 25 mmol/L 05/23/21 16:30 Fraction Sodium Excret 0.3 05/23/21 16:30 Urine Total Protein 42 mg/dL (5-11.8) H 05/10/21 11:03 Urine Opiates Screen Negative 05/04/21 Unknown Urine Methadone Screen Negative 05/04/21 Unknown Ur Barbiturates Screen Negative 05/04/21 Unknown Ur Phencyclidine Scrn Negative 05/04/21 Unknown Ur Amphetamines Screen Positive 05/04/21 Unknown U Benzodiazepines Scrn Negative 05/04/21 Unknown Urine Cocaine Screen Negative 05/04/21 Unknown U Marijuana (THC) Screen Negative 05/04/21 Unknown Drugs of Abuse Note Disclamer 05/04/21 Unknown Immunofix Electrophor see below 05/05/21 03:40 AUDRA Screen Negative (Negative) 05/05/21 03:40 Proteinase 3 (PR3) Ab <1.0 AI (<1.0) 05/05/21 03:40 Myeloperoxidase Ab <1.0 AI (<1.0) 05/05/21 03:40 Complement C3 72 mg/dL (82-185) L 05/05/21 03:40 Complement C4 17 mg/dL (15-53) 05/05/21 03:40 Coronavirus (PCR) Positive (Negative) A 05/05/21 08:30 Hepatitis A IgM Ab Non-reactive (NonReactive) 05/05/21 03:40 Hep Bs Antigen Non-reactive (Negative) 05/05/21 03:40 Hep B Core IgM Ab Non-reactive (NonReactive) 05/05/21 03:40 Hepatitis C Antibody Reactive (NonReactive) A 05/05/21 03:40 Blood Type O POSITIVE 05/23/21 07:12 Antibody Screen Negative 05/23/21 07:12 Crossmatch See Detail 05/23/21 07:12 Microbiology: Microbiology 05/21/21 03:12 Peripheral/Venous Blood Culture - Preliminary NO GROWTH AFTER 4 DAYS 05/21/21 02:22 Peripheral/Venous Blood Culture - Preliminary NO GROWTH AFTER 4 DAYS 05/23/21 14:50 Tracheal Aspirate Sputum Culture - Preliminary [place]/IV: Voiding Method Indwelling Catheter Active Medications - Current Medications Current Medications: Generic Name Dose Route Start Last Admin Trade Name Freq PRN Reason Stop Dose Admin Acetaminophen 650 mg 05/04/21 12:34 05/25/21 08:13 Acetaminophen 325 Mg Tab PO 650 mg Q4H PRN Administration Pain MILD(1-3)/Fever >100.5/MARIA Acetaminophen 650 mg 05/07/21 16:00 05/11/21 16:25 Acetaminophen 650 Mg Rect Supp MD 650 mg Q4H PRN Administration Pain, Mild (1-3) Atorvastatin Calcium 40 mg 05/09/21 22:00 05/24/21 21:46 Atorvastatin 40 Mg Tab FEEDTUBE 40 mg QHS RISHI Administration Chlordiazepoxide HCl 50 mg 05/24/21 20:00 05/25/21 09:09 Chlordiazepoxide 25 Mg Cap PO 05/27/21 19:59 50 mg TID RISHI Administration Chlordiazepoxide HCl 25 mg 05/27/21 20:00 Chlordiazepoxide 25 Mg Cap PO 05/30/21 19:59 TID RISHI Dextrose 0 ml 05/09/21 10:49 05/14/21 06:55 Dextrose 10% *Hypoglycemia IV 250 ml PRN PRN Administration Hypoglycemia Fentanyl 50 mcg 05/23/21 15:00 Fentanyl 100 Mcg/2 Ml Inj IV Q10MIN PRN ANALGESIA Haloperidol Lactate 5 mg 05/09/21 18:32 05/18/21 19:52 Haloperidol Lactate 5 Mg/1 Ml Inj IV 5 mg Q6H PRN Administration Agitation Hydralazine HCl 50 mg 05/04/21 14:00 05/24/21 21:45 Hydralazine 25 Mg Tab PO 50 mg Q8HR RISHI Administration Hydrophilic Ointment 1 applic 05/05/21 15:21 Lip Therapy Vaseline TP Q2HR PRN Dry Lips Sodium Chloride 1,000 mls @ 75 mls/hr 05/23/21 11:00 05/25/21 10:00 Nacl 0.45% 1000 Ml IV 75 mls/hr DIRECT RISHI Infusion Ertapenem 0.5 gm/ Sodium 50 mls @ 100 mls/hr 05/23/21 16:00 05/24/21 18:40 Chloride IV 100 mls/hr Q24H RISHI Administration Fentanyl Citrate 2,000 mcg in 100 mls @ 4.082 mls/hr 05/23/21 15:00 Fentanyl Drip Premix IV TITR RISHI Protocol 1 MCG/KG/HR Pantoprazole Sodium 80 mg/ 100 mls @ 10 mls/hr 05/24/21 09:00 05/25/21 05:06 Sodium Chloride IV 8 mg/hr DIRECT RISHI 10 mls/hr Administration 8 MG/HR Insulin Human Lispro 0 unit 05/10/21 09:40 05/12/21 16:49 Insulin Lispro 100 Unit/Ml SUB-Q 2 unit Q6HR PRN Administration Hyperglycemia Protocol Labetalol HCl 10 mg 05/15/21 10:24 05/25/21 08:15 Labetalol 20 Mg/4 Ml Inj IV 10 mg Q4H PRN Administration sbp> 160. Metoprolol Tartrate 25 mg 05/24/21 20:00 05/25/21 09:10 Metoprolol Tartrate 25 Mg Tab FEEDTUBE 25 mg TID RISHI Administration Multi-Ingred Cream/Lotion/Oil/Oint 1 applic 05/05/21 15:21 Mineral Oil/Petrolatum, White Ophth Oint 3.5 Gm OU Q4HR PRN Dry Eye(s) Ondansetron HCl 4 mg 05/04/21 12:34 05/04/21 21:51 Ondansetron 4 Mg/2 Ml Inj IV 4 mg Q8H PRN Administration Nausea And Vomiting Quetiapine Fumarate 150 mg 05/24/21 22:00 05/25/21 09:10 Quetiapine 100 Mg Tab PO 150 mg BID RISHI Administration Senna/Docusate Sodium 1 tab 05/05/21 22:00 05/25/21 09:10 Sennosides/Docusate Sodium 8.6/50 Mg Tab FEEDTUBE 1 tab BID RISHI Administration Sodium Chloride 10 ml 05/04/21 22:00 05/25/21 09:11 Sodium Chloride 0.9% 10 Ml Flush Syringe IV 10 ml BID RISHI Administration Sodium Chloride 10 ml 05/04/21 12:34 05/06/21 13:59 Sodium Chloride 0.9% 10 Ml Flush Syringe IV 10 ml PRN PRN Administration LINE FLUSH Sodium Chloride 10 ml 05/09/21 09:46 Sodium Chloride 0.9% 50 Ml Ivpb IV PRN PRN FLUSH Nutrition/Malnutrition Assess - Dietary Evaluation Nutrition/Malnutrition Findings: Nutrition Notes Start: 05/05/21 16:15 Freq: Status: Active Protocol: Document 05/23/21 11:25 ROSAURA (Rec: 05/23/21 11:34 [facility] [id number]) Nutrition Notes Initial or Follow up Reassessment Current Diagnosis Acute Kidney Injury, Hypertension,Heart Failure, Respiratory Failure Other Pertinent Diagnosis Severe COVID-19 pneu, metabolic encephalopathy, polysubstance dependence Current Diet TF - Nepro at 60ml/hr Labs/Tests BUN 62 Cr 2.8 K 4.4 (was 5.7 and 5.2 on 05/21 and 05/22, respectively) Pertinent Medications reviewed Height 5 ft 7 in Weight 81.647 kg [place] Body Weight (kg) 67.27 BMI 28.1 Weight Status Overweight Subjective/Other Information 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 Electrical Instrumentation Technician changed TF formula sec to worsening renal function. Pt on BiPap support. Percent of energy/protein needs met: 135% energy 100% pro Burn Absent Trauma Absent #1 Nutrition Diagnosis Inadequate oral intake Diagnosis Progress(for reassessment Continues documentation) Is patient on ventilator? No Is Patient Ambulatory and/or Out of Bed No REE-([facility]-confined to bed) 1923.601 Calculation Used for Recommendations [facility] Additional Notes Pro needs 1.2-2g/k-163g/ day Fluid needs 1ml/kcal Nutrition Intervention Nutrition Support: Decrease Nepro rate to 45ml/hr , as current rate provides excess kcal. Provide 200ml water flush q4h. Kcal 1,944 Protein (gm) 87 Carbohydrates (gm) 174 Fat (gm) 104 Fluid (mL) 785 Fiber (gm) 14 Goal #1 TF tolerance Goal #2 TF to meet at least 75% energy and pro needs Follow-Up By: 05/27/21 Additional Comments F/U: TF tolerance/rate decrease, COMMERCIAL SALES MANAGER evaluation, renal function, resp status <LALA RODARTE - Last Filed: 05/26/21 13:23> Assessment and Plan Assessment and plan: I saw and evaluated the patient. Discussed with the nurse practitioner and agree with their findings and plan as documented in this note. Hospitalist Physical - Constitutional Vitals: Temp Pulse Resp BP Pulse Ox 98.4 F 84 26 H 117/76 98 05/26/21 12:00 05/26/21 12:00 05/26/21 12:00 05/26/21 12:00 05/26/21 12:00 HEART Score - HEART Score Troponin: Troponin T 0.400 ng/mL (0.00-0.029) H* D 05/16/21 18:40 Results - Labs CBC & Chem 7: 05/26/21 07:09 05/26/21 07:09 Labs: Laboratory Last Values WBC 15.8 K/mm3 (4.5-11.0) H 05/26/21 07:09 RBC 3.21 M/mm3 (3.65-5.03) L 05/26/21 07:09 Hgb 9.2 gm/dl (11.8-15.2) L 05/26/21 07:09 Hct 29.6 % (35.5-45.6) L 05/26/21 07:09 MCV 92 fl (84-94) 05/26/21 07:09 MCH 29 pg (28-32) 05/26/21 07:09 MCHC 31 % (32-34) L 05/26/21 07:09 RDW 16.6 % (13.2-15.2) H 05/26/21 07:09 Plt Count 388 K/mm3 (140-440) 05/26/21 07:09 Lymph % (Auto) Hogshead Inspector 05/16/21 10:21 [place] % (Auto) Hogshead Inspector 05/16/21 10:21 Eos % (Auto) Hogshead Inspector 05/16/21 10:21 Baso % (Auto) Hogshead Inspector 05/16/21 10:21 Lymph # (Auto) Hogshead Inspector 05/16/21 10:21 [place] # (Auto) Hogshead Inspector 05/16/21 10:21 Eos # (Auto) Hogshead Inspector 05/16/21 10:21 Baso # (Auto) Hogshead Inspector 05/16/21 10:21 Add Manual Diff Complete 05/16/21 10:21 Total Counted 100 05/16/21 10:21 Seg Neutrophils % Hogshead Inspector 05/16/21 10:21 Seg Neuts % (Manual) 83.0 % (40.0-70.0) H 05/16/21 10:21 Band Neutrophils % 2.0 % 05/16/21 10:21 Lymphocytes % (Manual) 4.0 % (13.4-35.0) L 05/16/21 10:21 Reactive Lymphs % (Man) 0 % 05/16/21 10:21 Monocytes % (Manual) 9.0 % (0.0-7.3) H 05/16/21 10:21 Eosinophils % (Manual) 0 % (0.0-4.3) 05/16/21 10:21 Basophils % (Manual) 0 % (0.0-1.8) 05/16/21 10:21 Metamyelocytes % 0 % 05/16/21 10:21 Myelocytes % 2.0 % 05/16/21 10:21 Promyelocytes % 0 % 05/16/21 10:21 Blast Cells % 0 % 05/16/21 10:21 Nucleated RBC % Not Reportable 05/16/21 10:21 Seg Neutrophils # Hogshead Inspector 05/16/21 10:21 Seg Neutrophils # Man 22.9 K/mm3 (1.8-7.7) H 05/16/21 10:21 Band Neutrophils # 0.6 K/mm3 05/16/21 10:21 Lymphocytes # (Manual) 1.1 K/mm3 (1.2-5.4) L 05/16/21 10:21 Abs React Lymphs (Man) 0.0 K/mm3 05/16/21 10:21 Monocytes # (Manual) 2.5 K/mm3 (0.0-0.8) H 05/16/21 10:21 Eosinophils # (Manual) 0.0 K/mm3 (0.0-0.4) 05/16/21 10:21 Basophils # (Manual) 0.0 K/mm3 (0.0-0.1) 05/16/21 10:21 Metamyelocytes # 0.0 K/mm3 05/16/21 10:21 Myelocytes # 0.6 K/mm3 05/16/21 10:21 Promyelocytes # 0.0 K/mm3 05/16/21 10:21 Blast Cells # 0.0 K/mm3 05/16/21 10:21 WBC Morphology Not Reportable 05/16/21 10:21 Hypersegmented Neuts Not Reportable 05/16/21 10:21 Hyposegmented Neuts Not Reportable 05/16/21 10:21 Hypogranular Neuts Not Reportable 05/16/21 10:21 Smudge Cells Not Reportable 05/16/21 10:21 Toxic Granulation Not Reportable 05/16/21 10:21 Toxic Vacuolation Not Reportable 05/16/21 10:21 Dohle Bodies Not Reportable 05/16/21 10:21 Pelger-Huet Anomaly Not Reportable 05/16/21 10:21 Jesse Rods Not Reportable 05/16/21 10:21 Platelet Estimate Consistent w auto 05/16/21 10:21 Clumped Platelets Few 05/16/21 10:21 Plt Clumps, EDTA Not Reportable 05/16/21 10:21 Large Platelets Not Reportable 05/16/21 10:21 Giant Platelets Not Reportable 05/16/21 10:21 Platelet Satelliting Not Reportable 05/16/21 10:21 Plt Morphology Comment Not Reportable 05/16/21 10:21 RBC Morphology Not Reportable 05/16/21 10:21 Dimorphic RBCs Not Reportable 05/16/21 10:21 Polychromasia Not Reportable 05/16/21 10:21 Hypochromasia Not Reportable 05/16/21 10:21 Poikilocytosis Not Reportable 05/16/21 10:21 Anisocytosis 1+ 05/16/21 10:21 Microcytosis Not Reportable 05/16/21 10:21 Macrocytosis Few 05/16/21 10:21 Spherocytes Not Reportable 05/16/21 10:21 Pappenheimer Bodies Not Reportable 05/16/21 10:21 Sickle Cells Not Reportable 05/16/21 10:21 Target Cells Not Reportable 05/16/21 10:21 Tear Drop Cells Not Reportable 05/16/21 10:21 Ovalocytes Not Reportable 05/16/21 10:21 Helmet Cells Not Reportable 05/16/21 10:21 [place] Bodies Not Reportable 05/16/21 10:21 [place] Rings Not Reportable 05/16/21 10:21 [place] Cells Not Reportable 05/16/21 10:21 Bite Cells Not Reportable 05/16/21 10:21 Crenated Cell Not Reportable 05/16/21 10:21 Elliptocytes Not Reportable 05/16/21 10:21 Acanthocytes (Spur) Not Reportable 05/16/21 10:21 Rouleaux Not Reportable 05/16/21 10:21 Hemoglobin C Crystals Not Reportable 05/16/21 10:21 Schistocytes Not Reportable 05/16/21 10:21 Malaria parasites Not Reportable 05/16/21 10:21 Tomi Bodies Not Reportable 05/16/21 10:21 Hem Pathologist Commnt No 05/16/21 10:21 PT 14.9 Sec. (12.2-14.9) 05/25/21 04:25 INR 1.05 (0.87-1.13) 05/25/21 04:25 APTT 72.5 Sec. (24.2-36.6) H* 05/19/21 19:36 D-Dimer 2730.61 ng/mlDDU (0-234) H 05/12/21 07:19 Heparin Anti-Xa Level 0.47 U.I./ml (0.3-0.7) 05/19/21 05:23 ABG pH 7.441 pH Units (7.350-7.450) 05/26/21 09:10 ABG pCO2 37.8 mm Hg 05/26/21 09:10 ABG pO2 135.5 mm Hg (80.0-90.0) H 05/26/21 09:10 ABG HCO3 25.1 mmol/L (20.0-26.0) 05/26/21 09:10 ABG O2 Saturation 98.7 % (95.0-99.0) 05/26/21 09:10 ABG O2 Content 13.2 (0.0-44) 05/26/21 09:10 ABG Base Excess 1.0 mmol/L (-2.0-3.0) 05/26/21 09:10 ABG Hemoglobin 9.6 gm/dl (14.0-18.0) L 05/26/21 09:10 ABG Carboxyhemoglobin 2.0 % (0.0-5.0) 05/26/21 09:10 ABG Methemoglobin 0.6 % (0.0-1.5) 05/26/21 09:10 Oxyhemoglobin 96.1 % (95.0-99.0) 05/26/21 09:10 FiO2 30 % 05/26/21 09:10 Sodium 137 mmol/L (137-145) 05/26/21 07:09 Potassium 4.6 mmol/L (3.6-5.0) 05/26/21 07:09 Chloride 103.9 mmol/L (98-107) 05/26/21 07:09 Carbon Dioxide 22 mmol/L (22-30) 05/26/21 07:09 Anion Gap 16 mmol/L 05/26/21 07:09 BUN 62 mg/dL (9-20) H 05/26/21 07:09 Creatinine 2.1 mg/dL (0.8-1.3) H 05/26/21 07:09 Estimated GFR 33 ml/min 05/26/21 07:09 BUN/Creatinine Ratio 30 % 05/26/21 07:09 Glucose 112 mg/dL (75-100) H 05/26/21 07:09 POC Glucose 109 mg/dL (70-105) H 05/26/21 11:20 Lactic Acid 0.90 mmol/L (0.7-2.0) 05/20/21 09:17 Calcium 8.2 mg/dL (8.4-10.2) L 05/26/21 07:09 Phosphorus 3.70 mg/dL (2.5-4.5) D 05/25/21 04:25 Magnesium 2.30 mg/dL (1.7-2.3) 05/25/21 04:25 Iron 10 ug/dL (49-181) L 05/23/21 Unknown TIBC 151 mcg/dL (250-450) L 05/23/21 Unknown Ferritin 640.2 ng/mL (30.0-300.0) H 05/12/21 07:19 Total Bilirubin 0.50 mg/dL (0.1-1.2) 05/24/21 04:11 AST 152 units/L (5-40) H 05/24/21 04:11 ALT 125 units/L (7-56) H 05/24/21 04:11 Alkaline Phosphatase 72 units/L (35-129) 05/24/21 04:11 Lactate Dehydrogenase 311 units/L (91-180) H 05/23/21 Unknown Total Creatine Kinase 406 units/L (55-170) H 05/04/21 08:42 Troponin T 0.400 ng/mL (0.00-0.029) H* D 05/16/21 18:40 C-Reactive Protein 1.60 mg/dL (0.00-1.30) H 05/12/21 07:19 Total Protein 6.6 g/dL (6.3-8.2) 05/24/21 04:11 Albumin 2.5 g/dL (3.9-5) L 05/24/21 04:11 Albumin/Globulin Ratio 0.6 % 05/24/21 04:11 Triglycerides 144 mg/dL (2-149) 05/10/21 04:57 Cholesterol 140 mg/dL (50-199) 05/04/21 07:25 LDL Cholesterol Direct 89 mg/dL (50-130) 05/04/21 07:25 HDL Cholesterol 48 mg/dL (40-59) 05/04/21 07:25 Cholesterol/HDL Ratio 2.91 % 05/04/21 07:25 Procalcitonin 0.63 ng/mL (<0.15) 05/09/21 15:53 Urine Color Yellow (Yellow) 05/26/21 09:50 Urine Turbidity Turbid (Clear) 05/26/21 09:50 Urine pH 5.0 (5.0-7.0) 05/26/21 09:50 Ur Specific [place] 1.014 (1.003-1.030) 05/26/21 09:50 Urine Protein 30 mg/dl mg/dL (Negative) 05/26/21 09:50 Urine Glucose (UA) Neg mg/dL (Negative) 05/26/21 09:50 Urine Ketones Neg mg/dL (Negative) 05/26/21 09:50 Urine Blood Sm (Negative) 05/26/21 09:50 Urine Nitrite Neg (Negative) 05/26/21 09:50 Urine Bilirubin Neg (Negative) 05/26/21 09:50 Urine Urobilinogen < 2.0 mg/dL (<2.0) 05/26/21 09:50 Ur Leukocyte Esterase Tr (Negative) 05/26/21 09:50 Urine WBC (Auto) 38.0 /HPF (0.0-6.0) H 05/26/21 09:50 Urine RBC (Auto) 5.0 /HPF (0.0-6.0) 05/26/21 09:50 U Epithel Cells (Auto) 1.0 /HPF (0-13.0) 05/23/21 16:30 Urine Bacteria (Auto) 1+ /HPF (Negative) 05/23/21 16:30 Uric Acid Crystals Few 05/09/21 00:40 Triple Phos Crystals 2+ 05/09/21 13:22 Amorphous Crystals 3+ 05/26/21 09:50 Granular Casts 20 /LPF 05/26/21 09:50 Urine Mucus Few /HPF 05/23/21 16:30 Urine Creatinine 100.1 mg/dL (0.1-20.0) H 05/23/21 16:30 Protein/Creatinin Ratio 0.42 05/10/21 11:03 Urine Sodium 25 mmol/L 05/23/21 16:30 Fraction Sodium Excret 0.3 05/23/21 16:30 Urine Total Protein 42 mg/dL (5-11.8) H 05/10/21 11:03 Urine Opiates Screen Negative 05/04/21 Unknown Urine Methadone Screen Negative 05/04/21 Unknown Ur Barbiturates Screen Negative 05/04/21 Unknown Ur Phencyclidine Scrn Negative 05/04/21 Unknown Ur Amphetamines Screen Positive 05/04/21 Unknown U Benzodiazepines Scrn Negative 05/04/21 Unknown Urine Cocaine Screen Negative 05/04/21 Unknown U Marijuana (THC) Screen Negative 05/04/21 Unknown Drugs of Abuse Note Disclamer 05/04/21 Unknown Immunofix Electrophor see below 05/05/21 03:40 AUDRA Screen Negative (Negative) 05/05/21 03:40 Proteinase 3 (PR3) Ab <1.0 AI (<1.0) 05/05/21 03:40 Myeloperoxidase Ab <1.0 AI (<1.0) 05/05/21 03:40 Complement C3 72 mg/dL (82-185) L 05/05/21 03:40 Complement C4 17 mg/dL (15-53) 05/05/21 03:40 Coronavirus (PCR) Positive (Negative) A 05/05/21 08:30 Hepatitis A IgM Ab Non-reactive (NonReactive) 05/05/21 03:40 Hep Bs Antigen Non-reactive (Negative) 05/05/21 03:40 Hep B Core IgM Ab Non-reactive (NonReactive) 05/05/21 03:40 Hepatitis C Antibody Reactive (NonReactive) A 05/05/21 03:40 Blood Type O POSITIVE 05/23/21 07:12 Antibody Screen Negative 05/23/21 07:12 Crossmatch See Detail 05/23/21 07:12 Microbiology: Microbiology 05/21/21 03:12 Peripheral/Venous Blood Culture - Final NO GROWTH AFTER 5 DAYS 05/21/21 02:22 Peripheral/Venous Blood Culture - Final NO GROWTH AFTER 5 DAYS Merino/IV: Voiding Method Indwelling Catheter Active Medications - Current Medications Current Medications: Generic Name Dose Route Start Last Admin Trade Name Freq PRN Reason Stop Dose Admin Acetaminophen 650 mg 05/04/21 12:34 05/26/21 07:43 Acetaminophen 325 Mg Tab PO 650 mg Q4H PRN Administration Pain MILD(1-3)/Fever >100.5/MARIA Acetaminophen 650 mg 05/07/21 16:00 05/11/21 16:25 Acetaminophen 650 Mg Rect Supp MD 650 mg Q4H PRN Administration Pain, Mild (1-3) Atorvastatin Calcium 40 mg 05/09/21 22:00 05/26/21 03:30 Atorvastatin 40 Mg Tab FEEDTUBE 40 mg QHS RISHI Administration Chlordiazepoxide HCl 50 mg 05/24/21 20:00 05/26/21 07:43 Chlordiazepoxide 25 Mg Cap PO 05/27/21 19:59 50 mg TID RISHI Administration Chlordiazepoxide HCl 25 mg 05/27/21 20:00 Chlordiazepoxide 25 Mg Cap PO 05/30/21 19:59 TID RISHI Dextrose 0 ml 05/09/21 10:49 05/14/21 06:55 Dextrose 10% *Hypoglycemia IV 250 ml PRN PRN Administration Hypoglycemia Fentanyl 50 mcg 05/23/21 15:00 Fentanyl 100 Mcg/2 Ml Inj IV Q10MIN PRN ANALGESIA Haloperidol Lactate 5 mg 05/09/21 18:32 05/18/21 19:52 Haloperidol Lactate 5 Mg/1 Ml Inj IV 5 mg Q6H PRN Administration Agitation Hydralazine HCl 50 mg 05/04/21 14:00 05/26/21 05:55 Hydralazine 25 Mg Tab PO 50 mg Q8HR RISHI Administration Hydrophilic Ointment 1 applic 05/05/21 15:21 Lip Therapy Vaseline TP Q2HR PRN Dry Lips Sodium Chloride 1,000 mls @ 75 mls/hr 05/23/21 11:00 05/26/21 03:28 Nacl 0.45% 1000 Ml IV 75 mls/hr DIRECT RISHI Administration Fentanyl Citrate 2,000 mcg in 100 mls @ 4.082 mls/hr 05/23/21 15:00 Fentanyl Drip Premix IV TITR RISHI Protocol 1 MCG/KG/HR Ertapenem 1 gm/ Sodium 50 mls @ 100 mls/hr 05/26/21 14:00 Chloride IV 05/29/21 10:29 QDAY RISHI Insulin Human Lispro 0 unit 05/10/21 09:40 05/12/21 16:49 Insulin Lispro 100 Unit/Ml SUB-Q 2 unit Q6HR PRN Administration Hyperglycemia Protocol Labetalol HCl 10 mg 05/15/21 10:24 05/25/21 08:15 Labetalol 20 Mg/4 Ml Inj IV 10 mg Q4H PRN Administration sbp> 160. Lansoprazole 30 mg 05/26/21 10:00 05/26/21 09:42 Lansoprazole 30 Mg Solutab FEEDTUBE 30 mg BID RISHI Administration Metoprolol Tartrate 50 mg 05/26/21 08:00 05/26/21 07:46 Metoprolol Tartrate 25 Mg Tab FEEDTUBE 50 mg TID RISHI Administration Multi-Ingred Cream/Lotion/Oil/Oint 1 applic 05/05/21 15:21 Mineral Oil/Petrolatum, White Ophth Oint 3.5 Gm OU Q4HR PRN Dry Eye(s) Ondansetron HCl 4 mg 05/04/21 12:34 05/04/21 21:51 Ondansetron 4 Mg/2 Ml Inj IV 4 mg Q8H PRN Administration Nausea And Vomiting Polyethylene Glycol 17 gm 05/26/21 22:00 Polyethylene Glycol 3350 17 Gm Powder PO QHS RSIHI Quetiapine Fumarate 100 mg 05/25/21 22:00 05/26/21 09:22 Quetiapine 100 Mg Tab PO 100 mg BID RISHI Administration Senna/Docusate Sodium 1 tab 05/05/21 22:00 05/26/21 09:21 Sennosides/Docusate Sodium 8.6/50 Mg Tab FEEDTUBE 1 tab BID RISHI Administration Sodium Chloride 10 ml 05/04/21 22:00 05/26/21 09:23 Sodium Chloride 0.9% 10 Ml Flush Syringe IV 10 ml BID RISHI Administration Sodium Chloride 10 ml 05/04/21 12:34 05/06/21 13:59 Sodium Chloride 0.9% 10 Ml Flush Syringe IV 10 ml PRN PRN Administration LINE FLUSH Sodium Chloride 10 ml 05/09/21 09:46 Sodium Chloride 0.9% 50 Ml Ivpb IV PRN PRN FLUSH Nutrition/Malnutrition Assess - Dietary Evaluation Nutrition/Malnutrition Findings: Nutrition Notes Start: 05/05/21 16:15 Freq: Status: Active Protocol: Document 05/23/21 11:25 [facility] (Rec: 05/23/21 11:34 [facility] [id number]) Nutrition Notes Initial or Follow up Reassessment Current Diagnosis Acute Kidney Injury, Hypertension,Heart Failure, Respiratory Failure Other Pertinent Diagnosis Severe COVID-19 pneu, metabolic encephalopathy, polysubstance dependence Current Diet TF - Nepro at 60ml/hr Labs/Tests BUN 62 Cr 2.8 K 4.4 (was 5.7 and 5.2 on 05/21 and 05/22, respectively) Pertinent Medications reviewed Height 5 ft 7 in Weight 81.647 kg [place] Body Weight (kg) 67.27 BMI 28.1 Weight Status Overweight Subjective/Other Information 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 Electrical Instrumentation Technician changed TF formula sec to worsening renal function. Pt on BiPap support. Percent of energy/protein needs met: 135% energy 100% pro Burn Absent Trauma Absent #1 Nutrition Diagnosis Inadequate oral intake Diagnosis Progress(for reassessment Continues documentation) Is patient on ventilator? No Is Patient Ambulatory and/or Out of Bed No REE-([facility]-confined to bed) 1924.608 Calculation Used for Recommendations [facility] Additional Notes Pro needs 1.2-2g/k-163g/ day Fluid needs 1ml/kcal Nutrition Intervention Nutrition Support: Decrease Nepro rate to 45ml/hr , as current rate provides excess kcal. Provide 200ml water flush q4h. Kcal 1,944 Protein (gm) 87 Carbohydrates (gm) 174 Fat (gm) 104 Fluid (mL) 785 Fiber (gm) 14 Goal #1 TF tolerance Goal #2 TF to meet at least 75% energy and pro needs Follow-Up By: 05/27/21 Additional Comments F/U: TF tolerance/rate decrease, COMMERCIAL SALES MANAGER evaluation, renal function, resp status
[2021-05-25] MEDS: hydrALAZINE 25 MG TAB PO SCH ×2 (15:40→21:00)
[2021-05-25] MEDS: ERTAPENEM 0.5 GM in SODIUM CHLORIDE 0.9% 50 ML IV SCH (17:03)
[2021-05-26] MEDS: PANTOPRAZOLE 80 MG in SODIUM CHLORIDE 0.9% 100 ML IV SCH (00:38)
--- NOTE | 2021-05-26 02:59 | XRay Report ---
CHEST 1 VIEW INDICATION / CLINICAL INFORMATION: follow up respiratory failure. COMPARISON: Chest x-ray 05/25/2021 FINDINGS: SUPPORT DEVICES: Stable, satisfactory device positioning. HEART / MEDIASTINUM: No significant abnormality. LUNGS / PLEURA: Stranding within the medial left lung base unchanged. Lungs otherwise clear. No pneum othorax. ADDITIONAL FINDINGS: No significant additional findings. IMPRESSION: 1. Stable appearance of the chest. Persistent stranding medial left lung base likely reflects subsegm ental atelectasis. Signer Name: Conor Rangel II, MD Signed: 05/26/2021 2:54 AM Workstation Name: [id number]
[2021-05-26] MEDS: SODIUM CHLORIDE 0.45% 1000 ML 1,000 ML IV SCH (03:28)
[2021-05-26] MEDS: hydrALAZINE 25 MG TAB PO SCH ×4 (05:55→22:00)
[2021-05-26] MEDS: ACETAMINOPHEN 325 MG TAB PO PRN (07:43)
[2021-05-26] MEDS: chlordiazePOXIDE 25 MG CAP PO SCH ×3 (07:43→20:16)
[2021-05-26] MEDS: METOPROLOL TARTRATE 25 MG TAB FEEDTUBE SCH ×3 (07:46→20:17)
[2021-05-26 08:13] LABS: Calcium 8.2 mg/dL (8.4-10.2)
[2021-05-26 08:36] LABS: Hematocrit 29.6 % (35.5-45.6); Hemoglobin 9.2 gm/dl (11.8-15.2); Mean Corpuscular HGB Conc 31 % (32-34); Mean Corpuscular Volume 92 fl (84-94); Platelet Count 388 K/mm3 (140-440); Red Blood Count 3.21 M/mm3 (3.65-5.03); Red Cell Distribution Width 16.6 % (13.2-15.2)
--- NOTE | 2021-05-26 09:20 | Progress Note ---
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 He is also currently nonoliguric. Approximately 2 L of urine output recorded yesterday * Hypernatremia is much improved. * His urine shows 2+ dipstick protein and 3 RBCs per high-power field. Frac tional excretion of sodium is 0.3%. Increase IV fluid. Suspect possible volume depletion. * Hyperkalemia has been corrected. Continue to hold diuretics. * Renal ultrasound reviewed - will need follow up CT once stable * Continue antiHTN medications * Cardiology, ICU input noted * Dose medications for renal function * Avoid potential nephrotoxins * Strict I/O * No indication for renal replacement therapy at this time Subjective Date of service: 05/26/21 Principal diagnosis: AHRF; COVID-19 infection; NSTEMI; YE; HFrEF (35-40%); Poly substance abuse Interval history: Patient remains on the ventilator. Currently on 30% FiO2. Oxygen saturation is 99%. IV fluid infusing half-normal saline at 75 cc an hour Objective - Vital Signs Vital signs: Vital Signs - 12hr 05/25/21 05/25/21 05/25/21 22:00 23:00 23:20 Temperature Pulse Rate 75 77 76 Pulse Rate [ From Monitor] Respiratory 25 H 22 24 Rate Blood Pressure 126/81 136/87 136/87 O2 Sat by Pulse 98 98 98 Oximetry 05/26/21 05/26/21 05/26/21 00:00 01:00 02:00 Temperature 100.1 F H Pulse Rate 78 81 82 Pulse Rate [ 76 From Monitor] Respiratory 25 H 25 H 26 H Rate Blood Pressure 147/94 147/90 142/95 O2 Sat by Pulse 98 98 98 Oximetry 05/26/21 05/26/21 05/26/21 03:00 04:00 04:22 Temperature 102.2 F H Pulse Rate 86 86 87 Pulse Rate [ 84 From Monitor] Respiratory 32 H 23 Rate Blood Pressure 158/98 148/100 153/94 O2 Sat by Pulse 98 98 98 Oximetry 05/26/21 05/26/2105/26/22 05:00 05:55 06:00 Temperature Pulse Rate 87 88 89 Pulse Rate [ From Monitor] Respiratory 28 H 26 H Rate Blood Pressure 156/95 163/100 155/94 O2 Sat by Pulse 98 98 Oximetry 05/26/21 08:00 Temperature 102.3 F H Pulse Rate Pulse Rate [ From Monitor] Respiratory Rate Blood Pressure O2 Sat by Pulse Oximetry - General Appearance General appearance: well-developed, well-nourished, appears stated age EENT: PERRL, mucous membranes moist Neck: no JVD, no thyromegaly, no carotid bruit, supple Respiratory: Present: Clear to Ascultation Cardiology: regular, normal heart rate Gastrointestinal: normal, normoactive bowel sounds Integumentary: no rash, other (No edema) - Lab 05/26/21 07:09 05/26/21 07:09 Most recent lab results ABG pH 7.406 pH Units (7.350-7.450) 05/25/21 09:40 ABG pCO2 41.2 mm Hg 05/25/21 09:40 ABG pO2 150.9 mm Hg (80.0-90.0) H 05/25/21 09:40 ABG HCO3 25.3 mmol/L (20.0-26.0) 05/25/21 09:40 ABG O2 Saturation 98.9 % (95.0-99.0) 05/25/21 09:40 Calcium 8.2 mg/dL (8.4-10.2) L 05/26/21 07:09 Phosphorus 3.70 mg/dL (2.5-4.5) D 05/25/21 04:25 Magnesium 2.30 mg/dL (1.7-2.3) 05/25/21 04:25 Urine Creatinine 100.1 mg/dL (0.1-20.0) H 05/23/21 16:30 Urine Sodium 25 mmol/L 05/23/21 16:30 Urine Total Protein 42 mg/dL (5-11.8) H 05/10/21 11:03 Medications & Allergies - Medications Allergies/Adverse Reactions: Allergies No Known Allergies Allergy (Verified 05/08/21 07:47) Home Medications: Home Medications Medication Instructions Recorded Confirmed Last Taken Type Cefpodoxime Proxetil 200 mg PO Q12H #10 tablet 09/11/20 05/19/21 Unknown Rx Famotidine [Pepcid] 20 mg PO BID #30 tablet 04/13/21 05/19/21 Unknown Rx Losartan [Cozaar] 100 mg PO QDAY #60 tablet 04/13/21 05/19/21 Unknown Rx Metoprolol Xl [Metoprolol 25 mg PO QDAY #30 tablet 04/13/21 05/19/21 Unknown Rx SUCCINATE ER TAB] NIFEdipine XL [Procardia Xl] 60 mg PO Q12HR #60 tablet 04/13/21 05/19/21 Unknown Rx hydrALAZINE [Apresoline TAB] 50 mg PO Q8HR #180 tablet 04/13/21 05/19/21 Unknown Rx Active Medications: Generic Name Dose Route Start Last Admin Trade Name Freq PRN Reason Stop Dose Admin Acetaminophen 650 mg 05/04/21 12:34 05/26/21 07:43 Acetaminophen 325 Mg Tab PO 650 mg Q4H PRN Administration Pain MILD(1-3)/Fever >100.5/MARIA Acetaminophen 650 mg 05/07/21 16:00 05/11/21 16:25 Acetaminophen 650 Mg Rect Supp MA 650 mg Q4H PRN Administration Pain, Mild (1-3) Atorvastatin Calcium 40 mg 05/09/21 22:00 05/26/21 03:30 Atorvastatin 40 Mg Tab FEEDTUBE 40 mg QHS RISHI Administration Chlordiazepoxide HCl 50 mg 05/24/21 20:00 05/26/21 07:43 Chlordiazepoxide 25 Mg Cap PO 05/27/21 19:59 50 mg TID RISHI Administration Chlordiazepoxide HCl 25 mg 05/27/21 20:00 Chlordiazepoxide 25 Mg Cap PO 05/30/21 19:59 TID RISHI Dextrose 0 ml 05/09/21 10:49 05/14/21 06:55 Dextrose 10% *Hypoglycemia IV 250 ml PRN PRN Administration Hypoglycemia Fentanyl 50 mcg 05/23/21 15:00 Fentanyl 100 Mcg/2 Ml Inj IV Q10MIN PRN ANALGESIA Haloperidol Lactate 5 mg 05/09/21 18:32 05/18/21 19:52 Haloperidol Lactate 5 Mg/1 Ml Inj IV 5 mg Q6H PRN Administration Agitation Hydralazine HCl 50 mg 05/04/21 14:00 05/26/21 05:55 Hydralazine 25 Mg Tab PO 50 mg Q8HR RISHI Administration Hydrophilic Ointment 1 applic 05/05/21 15:21 Lip Therapy Vaseline TP Q2HR PRN Dry Lips Sodium Chloride 1,000 mls @ 75 mls/hr 05/23/21 11:00 05/26/21 03:28 Nacl 0.45% 1000 Ml IV 75 mls/hr DIRECT RISHI Administration Ertapenem 0.5 gm/ Sodium 50 mls @ 100 mls/hr 05/23/21 16:00 05/25/21 17:03 Chloride IV 05/29/21 16:29 100 mls/hr Q24H RISHI Administration Fentanyl Citrate 2,000 mcg in 100 mls @ 4.082 mls/hr 05/23/21 15:00 Fentanyl Drip Premix IV TITR RISHI Protocol 1 MCG/KG/HR Insulin Human Lispro 0 unit 05/10/21 09:40 05/12/21 16:49 Insulin Lispro 100 Unit/Ml SUB-Q 2 unit Q6HR PRN Administration Hyperglycemia Protocol Labetalol HCl 10 mg 05/15/21 10:24 05/25/21 08:15 Labetalol 20 Mg/4 Ml Inj IV 10 mg Q4H PRN Administration sbp> 160. Lansoprazole 30 mg 05/26/21 22:00 Lansoprazole 30 Mg Solutab FEEDTUBE BID RISHI Metoprolol Tartrate 50 mg 05/26/21 08:00 05/26/21 07:46 Metoprolol Tartrate 25 Mg Tab FEEDTUBE 50 mg TID RISHI Administration Multi-Ingred Cream/Lotion/Oil/Oint 1 applic 05/05/21 15:21 Mineral Oil/Petrolatum, White Ophth Oint 3.5 Gm OU Q4HR PRN Dry Eye(s) Ondansetron HCl 4 mg 05/04/21 12:34 05/04/21 21:51 Ondansetron 4 Mg/2 Ml Inj IV 4 mg Q8H PRN Administration Nausea And Vomiting Quetiapine Fumarate 100 mg 05/25/21 22:00 05/25/21 21:00 Quetiapine 100 Mg Tab PO 100 mg BID RISHI Administration Senna/Docusate Sodium 1 tab 05/05/21 22:00 05/25/21 21:00 Sennosides/Docusate Sodium 8.6/50 Mg Tab FEEDTUBE 1 tab BID RISHI Administration Sodium Chloride 10 ml 05/04/21 22:00 05/25/21 21:05 Sodium Chloride 0.9% 10 Ml Flush Syringe IV 10 ml BID RISHI Administration Sodium Chloride 10 ml 05/04/21 12:34 05/06/21 13:59 Sodium Chloride 0.9% 10 Ml Flush Syringe IV 10 ml PRN PRN Administration LINE FLUSH Sodium Chloride 10 ml 05/09/21 09:46 Sodium Chloride 0.9% 50 Ml Ivpb IV PRN PRN FLUSH
[2021-05-26] MEDS: SENNOSIDES/DOCUSATE SODIUM 8.6/50 MG TAB FEEDTUBE SCH ×2 (09:21→21:18)
[2021-05-26] MEDS: QUEtiapine 100 MG TAB PO SCH ×2 (09:22→21:18)
[2021-05-26 09:34] LABS: ABG HCO3 25.1 mmol/L (20.0-26.0); ABG Methemoglobin 0.6 % (0.0-1.5); ABG Oxygen Saturation 98.7 % (95.0-99.0); ABG PCO2 37.8 mm Hg; ABG PH 7.441 pH Units (7.350-7.450); ABG PO2 135.5 mm Hg (80.0-90.0)
[2021-05-26] MEDS: LANSOPRAZOLE 30 MG SOLUTAB FEEDTUBE SCH ×2 (09:42→21:38)
[2021-05-26 10:58] LABS: Amorphous Crystals,Urine 3+
[2021-05-26 11:06] LABS: Bilirubin,Urine NEG (Negative); Blood,Urine SM (Negative); Color,Urine Yellow (Yellow); Urobilinogen,Urine < 2.0 mg/dL (<2.0)
[2021-05-26 11:07] LABS: Granular Casts,Urine 20 /LPF
--- NOTE | 2021-05-26 11:38 | Progress Note ---
Assessment and Plan Acute hypoxic resp failure on MVS COVID positive NSTEMI Acute kidney injury Cardiomyopathy EF 35-40% History of hepatitis C Elevated D-dimer. Low probability for PE seen on VQ scan Tobacco abuse Polysubstance abusepatient with positive methamphetamines and has a history of cocaine use Anemia - stop daily CXR's - add Miralax scheduled qhs - place Fentanyl patch for pain control - Protonix 40 mg IV bid - fevers may be related to VTE hx; continue antiinfective's per ID recommendations - awaiting trach & PEG - anticoagulation per vascular team - continue care as below otherwise; - daily SAT and SBT assessment as tolerated - continue to wean supplemental oxygen for target O2 sat's > 90% acutely - VAP bundle addressed - continue lung protective strategies - continue bronchodilators with pulmonary hygiene per RT - wean per pulmonary driven protocols otherwise - avoid nephrotoxins, renally dose all medications - continue accuchecks with glycemic control per SSI (While critically ill target blood glucose of 140-180 mg/dL; avoid hypoglycemia) - sedation prn for target RASS 0 to -1 - continue to avoid benzodiazepine's, reduce the possibility of delirium - prn analgesia per CPOT score - Maintenance of sleep-wake cycle, avoid delirium - continue enteral nutritional support at goal rate as tolerated - G.I. & VTE prophylaxis - PT/OT/ROM exercises - continue mobility protocols for pressure ulcer prophylaxis - Monitor hemodynamics closely - continue other care per attending / other consultants - discharge planning ongoing concurrently COVID SPECIFIC INTERVENTIONS - Appears to have incidental COVID infection- Remdesivir not administered secondary to renal failure - continue systemic steroids for severe COVID-19 infection empirically (Dexamethasone) - follow repeat COVID tests results - zinc and vitamin C supplementation - Monitor inflammatory markers per facility protocol - ferritin, Ddimer, CRP - therapeutic anticoagulation per system Protocol based on d-dimer and clinical considerations (on therapeutic heparin for NSTEMI) - Continue contact and airborne isolation .... Re-evaluate in am & prn CONDITION: CRITICAL PROGNOSIS: GUARDED CODE STATUS: FULL CODE The high probability of a clinically significant, sudden or life-threatening deterioration of the [respiratory, cardiovascular & neurologic] system(s) required my full and direct attention, intervention and personal management. The aggregate critical care time was [33] minutes without overlap. Time includes spent on; [x] Data Review and interpretation [x] Patient assessment and monitoring of vital signs [x] Documentation [x] Medication orders and management Subjective Date of service: 05/26/21 Principal diagnosis: AHRF; COVID-19 infection; NSTEMI; YE; HFrEF (35-40%); Polysubstance abuse Interval history: Patient is seen today for: Acute hypoxemic Resp failure; COVID-19 infection; NSTEMI; YE; HFrEF (35-40%); Polysubstance abuse; Anemia Seen and examined at bedside; 24hour events reviewed; nursing and respiratory care staff consulted; no adverse overnight events reported to me; resting in bed; remains on MVS with intermittent increased work of breathing; AMS is persistent; no BM today still; failed SBT; fever to 102.3F noted Objective Vital Signs - 12hr 05/26/21 05/26/21 05/26/21 00:00 01:00 02:00 Temperature 100.1 F H Pulse Rate 78 81 82 Pulse Rate [ 76 From Monitor] Respiratory 25 H 25 H 26 H Rate Blood Pressure 147/94 147/90 142/95 O2 Sat by Pulse 98 98 98 Oximetry 05/26/21 05/26/21 05/26/21 03:00 04:00 04:22 Temperature 102.2 F H Pulse Rate 86 86 87 Pulse Rate [ 84 From Monitor] Respiratory 32 H 23 Rate Blood Pressure 158/98 148/100 153/94 O2 Sat by Pulse 98 98 98 Oximetry 05/26/21 05/26/21 05/26/21 05:00 05:55 06:00 Temperature Pulse Rate 87 88 89 Pulse Rate [ From Monitor] Respiratory 28 H 26 H Rate Blood Pressure 156/95 163/100 155/94 O2 Sat by Pulse 98 98 Oximetry 05/26/21 05/26/21 05/26/21 07:00 08:00 09:00 Temperature 102.3 F H Pulse Rate 85 79 70 Pulse Rate [ 84 From Monitor] Respiratory 27 H 26 H 23 Rate Blood Pressure 156/93 151/93 132/87 O2 Sat by Pulse 98 98 99 Oximetry 05/26/21 05/26/21 09:55 10:00 Temperature 98.4 F Pulse Rate 72 Pulse Rate [ From Monitor] Respiratory 21 Rate Blood Pressure 111/70 O2 Sat by Pulse 98 Oximetry Constitutional: appears uncomfortable, other (middle aged male with mildly increased respiratory effort at rest) Eyes: non-icteric ENT: oropharynx moist, other (ETT 24 cm ELIZABET) Neck: supple, no lymphadenopathy, no JVD Effort: mildly labored Ascultation: Bilateral: diminished breath sounds, rhonchi (bases) Percussion: Bilateral: not dull Cardiovascular: regular rate and rhythm, other (S1,S2) Gastrointestinal: normoactive bowel sounds, soft, non-tender, non-distended Integumentary: normal Extremities: no cyanosis, no edema, pulses normal Neurologic: non-focal exam (grossly), pupils equal and round, unable to assess (sedated) Psychiatric: other CBC and BMP: 05/27/21 07:47 05/27/21 07:47 ABG, PT/INR, D-dimer: ABG ABG pH 7.441 pH Units (7.350-7.450) 05/26/21 09:10 ABG pCO2 37.8 mm Hg 05/26/21 09:10 ABG pO2 135.5 mm Hg (80.0-90.0) H 05/26/21 09:10 ABG O2 Saturation 98.7 % (95.0-99.0) 05/26/21 09:10 PT/INR, D-dimer PT 14.9 Sec. (12.2-14.9) 05/25/21 04:25 INR 1.05 (0.87-1.13) 05/25/21 04:25 D-Dimer 2730.61 ng/mlDDU (0-234) H 05/12/21 07:19 Abnormal lab findings: Abnormal Labs 05/04/21 05/04/21 05/04/21 07:25 07:25 07:25 WBC 12.9 H RBC 3.04 L Hgb 9.5 L Hct 28.4 L MCV MCHC RDW 15.4 H Lymph % (Auto) 11.4 L [place] % (Auto) 10.1 H Lymph # (Auto) [place] # (Auto) 1.3 H Seg Neutrophils % 78.0 H Seg Neuts % (Manual) Lymphocytes % (Manual) Monocytes % (Manual) Seg Neutrophils # 10.0 H Seg Neutrophils # Man Lymphocytes # (Manual) Monocytes # (Manual) PT 15.1 H APTT D-Dimer Heparin Anti-Xa Level ABG pH ABG pO2 ABG HCO3 ABG O2 Saturation ABG Base Excess ABG Hemoglobin Oxyhemoglobin Sodium 135 L Potassium Chloride Carbon Dioxide BUN 65 H Creatinine 3.4 H Glucose 118 H POC Glucose Calcium Phosphorus Magnesium Iron TIBC Ferritin Total Bilirubin 1.50 H AST 519 H ALT 475 H Lactate Dehydrogenase Total Creatine Kinase Troponin T 1.300 H* C-Reactive Protein Albumin Urine WBC (Auto) Urine Creatinine Urine Total Protein Complement C3 Coronavirus (PCR) Hepatitis C Antibody Crossmatch 05/04/21 05/04/21 05/04/21 07:25 08:42 08:42 WBC RBC Hgb Hct MCV MCHC RDW Lymph % (Auto) [place] % (Auto) Lymph # (Auto) [place] # (Auto) Seg Neutrophils % Seg Neuts % (Manual) Lymphocytes % (Manual) Monocytes % (Manual) Seg Neutrophils # Seg Neutrophils # Man Lymphocytes # (Manual) Monocytes # (Manual) PT APTT D-Dimer 579.49 H Heparin Anti-Xa Level ABG pH ABG pO2 ABG HCO3 ABG O2 Saturation ABG Base Excess ABG Hemoglobin Oxyhemoglobin Sodium Potassium Chloride Carbon Dioxide BUN Creatinine Glucose POC Glucose Calcium Phosphorus Magnesium Iron TIBC Ferritin Total Bilirubin AST ALT Lactate Dehydrogenase Total Creatine Kinase 406 H Troponin T 1.230 H* C-Reactive Protein Albumin Urine WBC (Auto) Urine Creatinine Urine Total Protein Complement C3 Coronavirus (PCR) Hepatitis C Antibody Crossmatch 05/04/21 05/04/21 05/04/21 10:13 13:34 18:14 WBC RBC Hgb 8.8 L Hct 26.6 L MCV MCHC RDW Lymph % (Auto) [place] % (Auto) Lymph # (Auto) [place] # (Auto) Seg Neutrophils % Seg Neuts % (Manual) Lymphocytes % (Manual) Monocytes % (Manual) Seg Neutrophils # Seg Neutrophils # Man Lymphocytes # (Manual) Monocytes # (Manual) PT APTT D-Dimer Heparin Anti-Xa Level < 0.10 L ABG pH ABG pO2 ABG HCO3 ABG O2 Saturation ABG Base Excess ABG Hemoglobin Oxyhemoglobin Sodium Potassium Chloride Carbon Dioxide BUN Creatinine Glucose POC Glucose Calcium Phosphorus Magnesium Iron TIBC Ferritin Total Bilirubin AST ALT Lactate Dehydrogenase Total Creatine Kinase Troponin T 1.400 H* C-Reactive Protein Albumin Urine WBC (Auto) Urine Creatinine Urine Total Protein Complement C3 Coronavirus (PCR) Hepatitis C Antibody Crossmatch 05/05/21 05/05/21 05/05/21 03:40 03:40 03:40 WBC RBC Hgb Hct MCV MCHC RDW Lymph % (Auto) [place] % (Auto) Lymph # (Auto) [place] # (Auto) Seg Neutrophils % Seg Neuts % (Manual) Lymphocytes % (Manual) Monocytes % (Manual) Seg Neutrophils # Seg Neutrophils # Man Lymphocytes # (Manual) Monocytes # (Manual) PT APTT D-Dimer Heparin Anti-Xa Level 0.11 L ABG pH ABG pO2 ABG HCO3 ABG O2 Saturation ABG Base Excess ABG Hemoglobin Oxyhemoglobin Sodium Potassium 3.3 L Chloride Carbon Dioxide BUN 59 H Creatinine 2.6 H Glucose 139 H POC Glucose Calcium Phosphorus Magnesium Iron TIBC Ferritin Total Bilirubin AST ALT Lactate Dehydrogenase Total Creatine Kinase Troponin T C-Reactive Protein Albumin Urine WBC (Auto) Urine Creatinine Urine Total Protein Complement C3 Coronavirus (PCR) Hepatitis C Antibody Reactive A Crossmatch 05/05/21 05/05/21 05/05/21 03:40 08:30 09:57 WBC RBC Hgb Hct MCV MCHC RDW Lymph % (Auto) [place] % (Auto) Lymph # (Auto) [place] # (Auto) Seg Neutrophils % Seg Neuts % (Manual) Lymphocytes % (Manual) Monocytes % (Manual) Seg Neutrophils # Seg Neutrophils # Man Lymphocytes # (Manual) Monocytes # (Manual) PT APTT D-Dimer Heparin Anti-Xa Level ABG pH ABG pO2 ABG HCO3 ABG O2 Saturation ABG Base Excess ABG Hemoglobin Oxyhemoglobin Sodium Potassium Chloride Carbon Dioxide BUN Creatinine Glucose POC Glucose Calcium Phosphorus Magnesium Iron TIBC Ferritin Total Bilirubin AST ALT Lactate Dehydrogenase Total Creatine Kinase Troponin T C-Reactive Protein Albumin Urine WBC (Auto) Urine Creatinine 100.8 H Urine Total Protein Complement C3 72 L Coronavirus (PCR) Positive A Hepatitis C Antibody Crossmatch 05/05/21 05/05/21 05/05/21 11:28 17:00 19:51 WBC RBC Hgb Hct MCV MCHC RDW Lymph % (Auto) [place] % (Auto) Lymph # (Auto) [place] # (Auto) Seg Neutrophils % Seg Neuts % (Manual) Lymphocytes % (Manual) Monocytes % (Manual) Seg Neutrophils # Seg Neutrophils # Man Lymphocytes # (Manual) Monocytes # (Manual) PT APTT D-Dimer Heparin Anti-Xa Level 0.10 L 0.22 L ABG pH 7.304 L ABG pO2 140.8 H ABG HCO3 ABG O2 Saturation ABG Base Excess -2.1 L ABG Hemoglobin 10.2 L Oxyhemoglobin Sodium Potassium Chloride Carbon Dioxide BUN Creatinine Glucose POC Glucose Calcium Phosphorus Magnesium Iron TIBC Ferritin Total Bilirubin AST ALT Lactate Dehydrogenase Total Creatine Kinase Troponin T C-Reactive Protein Albumin Urine WBC (Auto) Urine Creatinine Urine Total Protein Complement C3 Coronavirus (PCR) Hepatitis C Antibody Crossmatch 05/06/21 05/06/21 05/06/21 03:47 06:15 17:53 WBC RBC Hgb 9.0 L Hct 27.8 L MCV MCHC RDW Lymph % (Auto) [place] % (Auto) Lymph # (Auto) [place] # (Auto) Seg Neutrophils % Seg Neuts % (Manual) Lymphocytes % (Manual) Monocytes % (Manual) Seg Neutrophils # Seg Neutrophils # Man Lymphocytes # (Manual) Monocytes # (Manual) PT APTT D-Dimer Heparin Anti-Xa Level 0.10 L ABG pH ABG pO2 143.5 H ABG HCO3 ABG O2 Saturation ABG Base Excess -2.4 L ABG Hemoglobin 6.9 L Oxyhemoglobin Sodium Potassium Chloride Carbon Dioxide BUN Creatinine Glucose POC Glucose Calcium Phosphorus Magnesium Iron TIBC Ferritin Total Bilirubin AST ALT Lactate Dehydrogenase Total Creatine Kinase Troponin T C-Reactive Protein Albumin Urine WBC (Auto) Urine Creatinine Urine Total Protein Complement C3 Coronavirus (PCR) Hepatitis C Antibody Crossmatch 05/07/21 05/07/21 05/07/21 00:07 03:22 03:45 WBC RBC Hgb Hct MCV MCHC RDW Lymph % (Auto) [place] % (Auto) Lymph # (Auto) [place] # (Auto) Seg Neutrophils % Seg Neuts % (Manual) Lymphocytes % (Manual) Monocytes % (Manual) Seg Neutrophils # Seg Neutrophils # Man Lymphocytes # (Manual) Monocytes # (Manual) PT APTT D-Dimer Heparin Anti-Xa Level < 0.10 L ABG pH ABG pO2 104.3 H ABG HCO3 ABG O2 Saturation ABG Base Excess -2.6 L ABG Hemoglobin 9.1 L Oxyhemoglobin Sodium Potassium Chloride 107.1 H Carbon Dioxide 20 L BUN 56 H Creatinine 2.9 H Glucose POC Glucose Calcium Phosphorus Magnesium Iron TIBC Ferritin Total Bilirubin AST ALT Lactate Dehydrogenase Total Creatine Kinase Troponin T C-Reactive Protein Albumin Urine WBC (Auto) Urine Creatinine Urine Total Protein Complement C3 Coronavirus (PCR) Hepatitis C Antibody Crossmatch 05/07/21 05/07/21 05/07/21 07:44 16:28 22:41 WBC RBC Hgb Hct MCV MCHC RDW Lymph % (Auto) [place] % (Auto) Lymph # (Auto) [place] # (Auto) Seg Neutrophils % Seg Neuts % (Manual) Lymphocytes % (Manual) Monocytes % (Manual) Seg Neutrophils # Seg Neutrophils # Man Lymphocytes # (Manual) Monocytes # (Manual) PT APTT D-Dimer Heparin Anti-Xa Level < 0.10 L 0.10 L < 0.10 L ABG pH ABG pO2 ABG HCO3 ABG O2 Saturation ABG Base Excess ABG Hemoglobin Oxyhemoglobin Sodium Potassium Chloride Carbon Dioxide BUN Creatinine Glucose POC Glucose Calcium Phosphorus Magnesium Iron TIBC Ferritin Total Bilirubin AST ALT Lactate Dehydrogenase Total Creatine Kinase Troponin T C-Reactive Protein Albumin Urine WBC (Auto) Urine Creatinine Urine Total Protein Complement C3 Coronavirus (PCR) Hepatitis C Antibody Crossmatch 05/08/21 05/08/21 05/08/21 03:25 04:34 07:30 WBC 12.4 H RBC 3.02 L Hgb 9.5 L Hct 29.2 L MCV 97 H MCHC RDW 16.7 H Lymph % (Auto) 8.1 L [place] % (Auto) 11.0 H Lymph # (Auto) 1.0 L [place] # (Auto) 1.4 H Seg Neutrophils % 80.1 H Seg Neuts % (Manual) Lymphocytes % (Manual) Monocytes % (Manual) Seg Neutrophils # 9.9 H Seg Neutrophils # Man Lymphocytes # (Manual) Monocytes # (Manual) PT APTT D-Dimer Heparin Anti-Xa Level ABG pH ABG pO2 139.0 H ABG HCO3 ABG O2 Saturation ABG Base Excess ABG Hemoglobin 8.8 L Oxyhemoglobin Sodium Potassium Chloride 110.5 H Carbon Dioxide BUN 59 H Creatinine 2.8 H Glucose 103 H POC Glucose Calcium Phosphorus Magnesium Iron TIBC Ferritin Total Bilirubin AST ALT 327 H Lactate Dehydrogenase Total Creatine Kinase Troponin T C-Reactive Protein Albumin 3.1 L Urine WBC (Auto) Urine Creatinine Urine Total Protein Complement C3 Coronavirus (PCR) Hepatitis C Antibody Crossmatch 05/09/21 05/09/21 05/09/21 04:10 04:20 04:20 WBC 11.7 H RBC 2.79 L Hgb 8.7 L Hct 26.5 L MCV 95 H MCHC RDW 16.2 H Lymph % (Auto) [place] % (Auto) Lymph # (Auto) [place] # (Auto) Seg Neutrophils % Seg Neuts % (Manual) Lymphocytes % (Manual) Monocytes % (Manual) Seg Neutrophils # Seg Neutrophils # Man Lymphocytes # (Manual) Monocytes # (Manual) PT APTT D-Dimer Heparin Anti-Xa Level ABG pH ABG pO2 161.6 H ABG HCO3 ABG O2 Saturation ABG Base Excess ABG Hemoglobin 8.3 L Oxyhemoglobin Sodium 151 H Potassium Chloride 114.5 H Carbon Dioxide 21 L BUN 57 H Creatinine 2.4 H Glucose POC Glucose Calcium Phosphorus Magnesium Iron TIBC Ferritin Total Bilirubin AST ALT 210 H Lactate Dehydrogenase Total Creatine Kinase Troponin T C-Reactive Protein Albumin 2.9 L Urine WBC (Auto) Urine Creatinine Urine Total Protein Complement C3 Coronavirus (PCR) Hepatitis C Antibody Crossmatch 05/09/21 05/09/21 05/09/21 09:48 09:48 13:22 WBC 11.6 H RBC 3.00 L Hgb 9.0 L Hct 28.4 L MCV MCHC RDW 15.9 H Lymph % (Auto) 5.9 L [place] % (Auto) 8.9 H Lymph # (Auto) 0.7 L [place] # (Auto) 1.0 H Seg Neutrophils % 84.3 H Seg Neuts % (Manual) Lymphocytes % (Manual) Monocytes % (Manual) Seg Neutrophils # 9.8 H Seg Neutrophils # Man Lymphocytes # (Manual) Monocytes # (Manual) PT APTT D-Dimer Heparin Anti-Xa Level ABG pH ABG pO2 ABG HCO3 ABG O2 Saturation ABG Base Excess ABG Hemoglobin Oxyhemoglobin Sodium Potassium Chloride Carbon Dioxide BUN Creatinine Glucose POC Glucose Calcium Phosphorus Magnesium Iron TIBC Ferritin Total Bilirubin AST ALT Lactate Dehydrogenase Total Creatine Kinase Troponin T C-Reactive Protein 8.70 H Albumin Urine WBC (Auto) 25.0 H Urine Creatinine Urine Total Protein Complement C3 Coronavirus (PCR) Hepatitis C Antibody Crossmatch 05/09/21 05/09/21 05/10/21 15:20 18:16 04:57 WBC RBC 2.87 L Hgb 8.8 L Hct 27.0 L MCV MCHC RDW 15.9 H Lymph % (Auto) [place] % (Auto) Lymph # (Auto) [place] # (Auto) Seg Neutrophils % Seg Neuts % (Manual) Lymphocytes % (Manual) Monocytes % (Manual) Seg Neutrophils # Seg Neutrophils # Man Lymphocytes # (Manual) Monocytes # (Manual) PT APTT D-Dimer Heparin Anti-Xa Level ABG pH ABG pO2 102.0 H ABG HCO3 ABG O2 Saturation ABG Base Excess -2.8 L ABG Hemoglobin 9.0 L Oxyhemoglobin Sodium Potassium Chloride Carbon Dioxide BUN Creatinine Glucose POC Glucose 130 H Calcium Phosphorus Magnesium Iron TIBC Ferritin Total Bilirubin AST ALT Lactate Dehydrogenase Total Creatine Kinase Troponin T C-Reactive Protein Albumin Urine WBC (Auto) Urine Creatinine Urine Total Protein Complement C3 Coronavirus (PCR) Hepatitis C Antibody Crossmatch 05/10/21 05/10/21 05/10/21 04:57 04:57 04:57 WBC RBC Hgb Hct MCV MCHC RDW Lymph % (Auto) [place] % (Auto) Lymph # (Auto) [place] # (Auto) Seg Neutrophils % Seg Neuts % (Manual) Lymphocytes % (Manual) Monocytes % (Manual) Seg Neutrophils # Seg Neutrophils # Man Lymphocytes # (Manual) Monocytes # (Manual) PT APTT D-Dimer 1546.78 H Heparin Anti-Xa Level ABG pH ABG pO2 ABG HCO3 ABG O2 Saturation ABG Base Excess ABG Hemoglobin Oxyhemoglobin Sodium 148 H Potassium Chloride 114.9 H Carbon Dioxide 21 L BUN 57 H Creatinine 2.3 H Glucose 157 H POC Glucose Calcium Phosphorus Magnesium Iron TIBC Ferritin 888.2 H Total Bilirubin AST ALT Lactate Dehydrogenase 289 H Total Creatine Kinase Troponin T C-Reactive Protein 6.80 H Albumin Urine WBC (Auto) Urine Creatinine Urine Total Protein Complement C3 Coronavirus (PCR) Hepatitis C Antibody Crossmatch 05/10/21 05/10/21 05/10/21 05:09 08:04 11:03 WBC RBC Hgb Hct MCV MCHC RDW Lymph % (Auto) [place] % (Auto) Lymph # (Auto) [place] # (Auto) Seg Neutrophils % Seg Neuts % (Manual) Lymphocytes % (Manual) Monocytes % (Manual) Seg Neutrophils # Seg Neutrophils # Man Lymphocytes # (Manual) Monocytes # (Manual) PT APTT D-Dimer Heparin Anti-Xa Level ABG pH 7.473 H ABG pO2 114.6 H ABG HCO3 ABG O2 Saturation ABG Base Excess ABG Hemoglobin 9.5 L Oxyhemoglobin Sodium Potassium Chloride Carbon Dioxide BUN Creatinine Glucose POC Glucose 152 H Calcium Phosphorus Magnesium Iron TIBC Ferritin Total Bilirubin AST ALT Lactate Dehydrogenase Total Creatine Kinase Troponin T C-Reactive Protein Albumin Urine WBC (Auto) Urine Creatinine 100.8 H Urine Total Protein 42 H Complement C3 Coronavirus (PCR) Hepatitis C Antibody Crossmatch 05/10/21 05/10/21 05/10/21 13:07 18:01 23:31 WBC RBC Hgb Hct MCV MCHC RDW Lymph % (Auto) [place] % (Auto) Lymph # (Auto) [place] # (Auto) Seg Neutrophils % Seg Neuts % (Manual) Lymphocytes % (Manual) Monocytes % (Manual) Seg Neutrophils # Seg Neutrophils # Man Lymphocytes # (Manual) Monocytes # (Manual) PT APTT D-Dimer Heparin Anti-Xa Level ABG pH ABG pO2 ABG HCO3 ABG O2 Saturation ABG Base Excess ABG Hemoglobin Oxyhemoglobin Sodium Potassium Chloride Carbon Dioxide BUN Creatinine Glucose POC Glucose 150 H 189 H 142 H Calcium Phosphorus Magnesium Iron TIBC Ferritin Total Bilirubin AST ALT Lactate Dehydrogenase Total Creatine Kinase Troponin T C-Reactive Protein Albumin Urine WBC (Auto) Urine Creatinine Urine Total Protein Complement C3 Coronavirus (PCR) Hepatitis C Antibody Crossmatch 05/10/21 05/11/21 05/11/21 Unknown 05:25 06:53 WBC RBC Hgb Hct MCV MCHC RDW Lymph % (Auto) [place] % (Auto) Lymph # (Auto) [place] # (Auto) Seg Neutrophils % Seg Neuts % (Manual) Lymphocytes % (Manual) Monocytes % (Manual) Seg Neutrophils # Seg Neutrophils # Man Lymphocytes # (Manual) Monocytes # (Manual) PT APTT D-Dimer Heparin Anti-Xa Level ABG pH ABG pO2 126.6 H ABG HCO3 ABG O2 Saturation ABG Base Excess ABG Hemoglobin 9.2 L Oxyhemoglobin Sodium 150 H Potassium Chloride 116.6 H Carbon Dioxide 21 L BUN 62 H Creatinine 2.5 H Glucose 142 H POC Glucose 163 H Calcium Phosphorus Magnesium Iron TIBC Ferritin Total Bilirubin AST ALT Lactate Dehydrogenase Total Creatine Kinase Troponin T C-Reactive Protein Albumin Urine WBC (Auto) Urine Creatinine Urine Total Protein Complement C3 Coronavirus (PCR) Hepatitis C Antibody Crossmatch 05/11/21 05/11/21 05/11/21 06:53 11:06 13:51 WBC RBC 3.07 L Hgb 9.3 L Hct 29.0 L MCV 95 H MCHC RDW 16.1 H Lymph % (Auto) [place] % (Auto) Lymph # (Auto) [place] # (Auto) Seg Neutrophils % Seg Neuts % (Manual) Lymphocytes % (Manual) Monocytes % (Manual) Seg Neutrophils # Seg Neutrophils # Man Lymphocytes # (Manual) Monocytes # (Manual) PT APTT D-Dimer Heparin Anti-Xa Level ABG pH ABG pO2 74.9 L ABG HCO3 ABG O2 Saturation ABG Base Excess -3.3 L ABG Hemoglobin 10.8 L Oxyhemoglobin Sodium Potassium Chloride Carbon Dioxide BUN Creatinine Glucose POC Glucose 145 H Calcium Phosphorus Magnesium Iron TIBC Ferritin Total Bilirubin AST ALT Lactate Dehydrogenase Total Creatine Kinase Troponin T C-Reactive Protein Albumin Urine WBC (Auto) Urine Creatinine Urine Total Protein Complement C3 Coronavirus (PCR) Hepatitis C Antibody Crossmatch 05/11/21 05/11/21 05/11/21 14:43 14:43 15:47 WBC RBC Hgb 9.2 L Hct 29.7 L MCV MCHC RDW Lymph % (Auto) [place] % (Auto) Lymph # (Auto) [place] # (Auto) Seg Neutrophils % Seg Neuts % (Manual) Lymphocytes % (Manual) Monocytes % (Manual) Seg Neutrophils # Seg Neutrophils # Man Lymphocytes # (Manual) Monocytes # (Manual) PT 15.6 H APTT D-Dimer Heparin Anti-Xa Level ABG pH ABG pO2 ABG HCO3 ABG O2 Saturation ABG Base Excess ABG Hemoglobin Oxyhemoglobin Sodium Potassium Chloride Carbon Dioxide BUN Creatinine Glucose POC Glucose 137 H Calcium Phosphorus Magnesium Iron TIBC Ferritin Total Bilirubin AST ALT Lactate Dehydrogenase Total Creatine Kinase Troponin T C-Reactive Protein Albumin Urine WBC (Auto) Urine Creatinine Urine Total Protein Complement C3 Coronavirus (PCR) Hepatitis C Antibody Crossmatch 05/12/21 05/12/21 05/12/21 00:04 05:07 07:19 WBC 11.9 H RBC 3.00 L Hgb 9.1 L Hct 28.9 L MCV 96 H MCHC RDW 16.7 H Lymph % (Auto) 11.5 L [place] % (Auto) 8.2 H Lymph # (Auto) [place] # (Auto) 1.0 H Seg Neutrophils % 80.0 H Seg Neuts % (Manual) Lymphocytes % (Manual) Monocytes % (Manual) Seg Neutrophils # 9.6 H Seg Neutrophils # Man Lymphocytes # (Manual) Monocytes # (Manual) PT APTT D-Dimer Heparin Anti-Xa Level ABG pH ABG pO2 ABG HCO3 ABG O2 Saturation ABG Base Excess ABG Hemoglobin Oxyhemoglobin Sodium Potassium Chloride Carbon Dioxide BUN Creatinine Glucose POC Glucose 121 H 117 H Calcium Phosphorus Magnesium Iron TIBC Ferritin Total Bilirubin AST ALT Lactate Dehydrogenase Total Creatine Kinase Troponin T C-Reactive Protein Albumin Urine WBC (Auto) Urine Creatinine Urine Total Protein Complement C3 Coronavirus (PCR) Hepatitis C Antibody Crossmatch 05/12/21 05/12/21 05/12/21 07:19 07:19 07:19 WBC RBC Hgb Hct MCV MCHC RDW Lymph % (Auto) [place] % (Auto) Lymph # (Auto) [place] # (Auto) Seg Neutrophils % Seg Neuts % (Manual) Lymphocytes % (Manual) Monocytes % (Manual) Seg Neutrophils # Seg Neutrophils # Man Lymphocytes # (Manual) Monocytes # (Manual) PT APTT D-Dimer 2730.61 H Heparin Anti-Xa Level ABG pH ABG pO2 ABG HCO3 ABG O2 Saturation ABG Base Excess ABG Hemoglobin Oxyhemoglobin Sodium 146 H Potassium 5.1 H Chloride 112.4 H Carbon Dioxide 21 L BUN 61 H Creatinine 2.2 H Glucose 136 H POC Glucose Calcium 8.1 L Phosphorus Magnesium Iron TIBC Ferritin 640.2 H Total Bilirubin AST ALT Lactate Dehydrogenase 314 H Total Creatine Kinase Troponin T C-Reactive Protein 1.60 H Albumin Urine WBC (Auto) Urine Creatinine Urine Total Protein Complement C3 Coronavirus (PCR) Hepatitis C Antibody Crossmatch 05/12/21 05/12/21 05/12/21 11:10 16:10 16:38 WBC RBC Hgb Hct MCV MCHC RDW Lymph % (Auto) [place] % (Auto) Lymph # (Auto) [place] # (Auto) Seg Neutrophils % Seg Neuts % (Manual) Lymphocytes % (Manual) Monocytes % (Manual) Seg Neutrophils # Seg Neutrophils # Man Lymphocytes # (Manual) Monocytes # (Manual) PT APTT D-Dimer Heparin Anti-Xa Level 0.20 L ABG pH ABG pO2 ABG HCO3 ABG O2 Saturation ABG Base Excess ABG Hemoglobin Oxyhemoglobin Sodium Potassium Chloride Carbon Dioxide BUN Creatinine Glucose POC Glucose 131 H 157 H Calcium Phosphorus Magnesium Iron TIBC Ferritin Total Bilirubin AST ALT Lactate Dehydrogenase Total Creatine Kinase Troponin T C-Reactive Protein Albumin Urine WBC (Auto) Urine Creatinine Urine Total Protein Complement C3 Coronavirus (PCR) Hepatitis C Antibody Crossmatch 05/12/21 05/13/21 05/13/21 23:30 00:12 04:20 WBC RBC Hgb Hct MCV MCHC RDW Lymph % (Auto) [place] % (Auto) Lymph # (Auto) [place] # (Auto) Seg Neutrophils % Seg Neuts % (Manual) Lymphocytes % (Manual) Monocytes % (Manual) Seg Neutrophils # Seg Neutrophils # Man Lymphocytes # (Manual) Monocytes # (Manual) PT APTT D-Dimer Heparin Anti-Xa Level 0.13 L ABG pH ABG pO2 ABG HCO3 ABG O2 Saturation ABG Base Excess ABG Hemoglobin Oxyhemoglobin Sodium Potassium Chloride 111.2 H Carbon Dioxide BUN 53 H Creatinine 1.9 H Glucose 121 H POC Glucose 115 H Calcium 8.3 L Phosphorus Magnesium Iron TIBC Ferritin Total Bilirubin AST ALT Lactate Dehydrogenase Total Creatine Kinase Troponin T C-Reactive Protein Albumin Urine WBC (Auto) Urine Creatinine Urine Total Protein Complement C3 Coronavirus (PCR) Hepatitis C Antibody Crossmatch 05/13/21 05/13/21 05/13/21 04:20 11:15 11:29 WBC 13.1 H RBC 2.86 L Hgb 8.5 L Hct 26.9 L MCV MCHC RDW 15.7 H Lymph % (Auto) [place] % (Auto) Lymph # (Auto) [place] # (Auto) Seg Neutrophils % Seg Neuts % (Manual) Lymphocytes % (Manual) Monocytes % (Manual) Seg Neutrophils # Seg Neutrophils # Man Lymphocytes # (Manual) Monocytes # (Manual) PT APTT D-Dimer Heparin Anti-Xa Level ABG pH 7.456 H ABG pO2 106.0 H ABG HCO3 ABG O2 Saturation ABG Base Excess ABG Hemoglobin 7.1 L Oxyhemoglobin Sodium Potassium Chloride Carbon Dioxide BUN Creatinine Glucose POC Glucose 121 H Calcium Phosphorus Magnesium Iron TIBC Ferritin Total Bilirubin AST ALT Lactate Dehydrogenase Total Creatine Kinase Troponin T C-Reactive Protein Albumin Urine WBC (Auto) Urine Creatinine Urine Total Protein Complement C3 Coronavirus (PCR) Hepatitis C Antibody Crossmatch 05/13/21 05/13/21 05/14/21 16:38 23:43 04:26 WBC 14.2 H RBC 3.11 L Hgb 9.4 L Hct 29.3 L MCV MCHC RDW 15.4 H Lymph % (Auto) [place] % (Auto) Lymph # (Auto) [place] # (Auto) Seg Neutrophils % Seg Neuts % (Manual) Lymphocytes % (Manual) Monocytes % (Manual) Seg Neutrophils # Seg Neutrophils # Man Lymphocytes # (Manual) Monocytes # (Manual) PT APTT D-Dimer Heparin Anti-Xa Level ABG pH ABG pO2 ABG HCO3 ABG O2 Saturation ABG Base Excess ABG Hemoglobin Oxyhemoglobin Sodium Potassium Chloride Carbon Dioxide BUN Creatinine Glucose POC Glucose 119 H 55 L Calcium Phosphorus Magnesium Iron TIBC Ferritin Total Bilirubin AST ALT Lactate Dehydrogenase Total Creatine Kinase Troponin T C-Reactive Protein Albumin Urine WBC (Auto) Urine Creatinine Urine Total Protein Complement C3 Coronavirus (PCR) Hepatitis C Antibody Crossmatch 05/14/21 05/14/21 05/14/21 04:26 05:26 06:51 WBC RBC Hgb Hct MCV MCHC RDW Lymph % (Auto) [place] % (Auto) Lymph # (Auto) [place] # (Auto) Seg Neutrophils % Seg Neuts % (Manual) Lymphocytes % (Manual) Monocytes % (Manual) Seg Neutrophils # Seg Neutrophils # Man Lymphocytes # (Manual) Monocytes # (Manual) PT APTT D-Dimer Heparin Anti-Xa Level ABG pH ABG pO2 ABG HCO3 ABG O2 Saturation ABG Base Excess ABG Hemoglobin Oxyhemoglobin Sodium Potassium 3.4 L Chloride 107.6 H Carbon Dioxide BUN 42 H Creatinine 1.9 H Glucose POC Glucose 51 L 62 L Calcium Phosphorus Magnesium Iron TIBC Ferritin Total Bilirubin AST ALT Lactate Dehydrogenase Total Creatine Kinase Troponin T C-Reactive Protein Albumin Urine WBC (Auto) Urine Creatinine Urine Total Protein Complement C3 Coronavirus (PCR) Hepatitis C Antibody Crossmatch 05/14/21 05/14/21 05/14/21 09:58 12:05 12:08 WBC RBC Hgb Hct MCV MCHC RDW Lymph % (Auto) [place] % (Auto) Lymph # (Auto) [place] # (Auto) Seg Neutrophils % Seg Neuts % (Manual) Lymphocytes % (Manual) Monocytes % (Manual) Seg Neutrophils # Seg Neutrophils # Man Lymphocytes # (Manual) Monocytes # (Manual) PT APTT D-Dimer Heparin Anti-Xa Level ABG pH ABG pO2 ABG HCO3 ABG O2 Saturation ABG Base Excess ABG Hemoglobin Oxyhemoglobin Sodium Potassium 3.4 L Chloride Carbon Dioxide BUN 36 H Creatinine 1.8 H Glucose 133 H POC Glucose 60 L 127 H Calcium Phosphorus Magnesium Iron TIBC Ferritin Total Bilirubin AST ALT Lactate Dehydrogenase Total Creatine Kinase Troponin T C-Reactive Protein Albumin Urine WBC (Auto) Urine Creatinine Urine Total Protein Complement C3 Coronavirus (PCR) Hepatitis C Antibody Crossmatch 05/14/21 05/14/21 05/15/21 17:20 23:37 05:34 WBC RBC Hgb Hct MCV MCHC RDW Lymph % (Auto) [place] % (Auto) Lymph # (Auto) [place] # (Auto) Seg Neutrophils % Seg Neuts % (Manual) Lymphocytes % (Manual) Monocytes % (Manual) Seg Neutrophils # Seg Neutrophils # Man Lymphocytes # (Manual) Monocytes # (Manual) PT APTT D-Dimer Heparin Anti-Xa Level ABG pH ABG pO2 ABG HCO3 ABG O2 Saturation ABG Base Excess ABG Hemoglobin Oxyhemoglobin Sodium Potassium Chloride Carbon Dioxide BUN Creatinine Glucose POC Glucose 144 H 115 H 119 H Calcium Phosphorus Magnesium Iron TIBC Ferritin Total Bilirubin AST ALT Lactate Dehydrogenase Total Creatine Kinase Troponin T C-Reactive Protein Albumin Urine WBC (Auto) Urine Creatinine Urine Total Protein Complement C3 Coronavirus (PCR) Hepatitis C Antibody Crossmatch 05/15/21 05/15/21 05/15/21 07:26 07:26 14:35 WBC 13.8 H RBC 3.32 L Hgb 10.0 L Hct 31.2 L MCV MCHC RDW 16.0 H Lymph % (Auto) [place] % (Auto) Lymph # (Auto) [place] # (Auto) Seg Neutrophils % Seg Neuts % (Manual) Lymphocytes % (Manual) Monocytes % (Manual) Seg Neutrophils # Seg Neutrophils # Man Lymphocytes # (Manual) Monocytes # (Manual) PT APTT D-Dimer Heparin Anti-Xa Level ABG pH ABG pO2 ABG HCO3 ABG O2 Saturation ABG Base Excess ABG Hemoglobin Oxyhemoglobin Sodium 149 H D Potassium 3.5 L Chloride 113.2 H Carbon Dioxide BUN 29 H Creatinine 1.8 H Glucose 113 H POC Glucose 143 H Calcium Phosphorus Magnesium Iron TIBC Ferritin Total Bilirubin AST ALT Lactate Dehydrogenase Total Creatine Kinase Troponin T C-Reactive Protein Albumin Urine WBC (Auto) Urine Creatinine Urine Total Protein Complement C3 Coronavirus (PCR) Hepatitis C Antibody Crossmatch 05/16/21 05/16/21 05/16/21 06:12 08:43 10:05 WBC RBC Hgb Hct MCV MCHC RDW Lymph % (Auto) [place] % (Auto) Lymph # (Auto) [place] # (Auto) Seg Neutrophils % Seg Neuts % (Manual) Lymphocytes % (Manual) Monocytes % (Manual) Seg Neutrophils # Seg Neutrophils # Man Lymphocytes # (Manual) Monocytes # (Manual) PT APTT D-Dimer Heparin Anti-Xa Level 0.21 L ABG pH ABG pO2 240.8 H ABG HCO3 ABG O2 Saturation 99.4 H ABG Base Excess -2.6 L ABG Hemoglobin 10.7 L Oxyhemoglobin Sodium Potassium Chloride Carbon Dioxide BUN Creatinine Glucose POC Glucose 34 L Calcium Phosphorus Magnesium Iron TIBC Ferritin Total Bilirubin AST ALT Lactate Dehydrogenase Total Creatine Kinase Troponin T C-Reactive Protein Albumin Urine WBC (Auto) Urine Creatinine Urine Total Protein Complement C3 Coronavirus (PCR) Hepatitis C Antibody Crossmatch 05/16/21 05/16/21 05/16/21 10:21 10:21 13:14 WBC 27.6 H RBC Hgb 11.4 L Hct MCV 99 H MCHC 30 L RDW 18.1 H Lymph % (Auto) [place] % (Auto) Lymph # (Auto) [place] # (Auto) Seg Neutrophils % Seg Neuts % (Manual) 83.0 H Lymphocytes % (Manual) 4.0 L Monocytes % (Manual) 9.0 H Seg Neutrophils # Seg Neutrophils # Man 22.9 H Lymphocytes # (Manual) 1.1 L Monocytes # (Manual) 2.5 H PT APTT D-Dimer Heparin Anti-Xa Level ABG pH ABG pO2 ABG HCO3 ABG O2 Saturation ABG Base Excess ABG Hemoglobin Oxyhemoglobin Sodium Potassium Chloride 108.8 H Carbon Dioxide 17 L BUN 26 H Creatinine 1.9 H Glucose 141 H POC Glucose Calcium Phosphorus Magnesium Iron TIBC Ferritin Total Bilirubin AST ALT Lactate Dehydrogenase Total Creatine Kinase Troponin T 0.503 H* C-Reactive Protein Albumin 3.1 L Urine WBC (Auto) Urine Creatinine Urine Total Protein Complement C3 Coronavirus (PCR) Hepatitis C Antibody Crossmatch 05/16/21 05/17/21 05/17/21 18:40 00:02 04:52 WBC RBC Hgb 8.8 L Hct 28.5 L D MCV MCHC RDW Lymph % (Auto) [place] % (Auto) Lymph # (Auto) [place] # (Auto) Seg Neutrophils % Seg Neuts % (Manual) Lymphocytes % (Manual) Monocytes % (Manual) Seg Neutrophils # Seg Neutrophils # Man Lymphocytes # (Manual) Monocytes # (Manual) PT APTT D-Dimer Heparin Anti-Xa Level ABG pH ABG pO2 ABG HCO3 ABG O2 Saturation ABG Base Excess ABG Hemoglobin Oxyhemoglobin Sodium Potassium Chloride Carbon Dioxide BUN Creatinine Glucose POC Glucose 114 H Calcium Phosphorus Magnesium Iron TIBC Ferritin Total Bilirubin AST ALT Lactate Dehydrogenase Total Creatine Kinase Troponin T 0.400 H* D C-Reactive Protein Albumin Urine WBC (Auto) Urine Creatinine Urine Total Protein Complement C3 Coronavirus (PCR) Hepatitis C Antibody Crossmatch 05/17/21 05/17/21 05/17/21 04:52 05:15 06:50 WBC RBC Hgb Hct MCV MCHC RDW Lymph % (Auto) [place] % (Auto) Lymph # (Auto) [place] # (Auto) Seg Neutrophils % Seg Neuts % (Manual) Lymphocytes % (Manual) Monocytes % (Manual) Seg Neutrophils # Seg Neutrophils # Man Lymphocytes # (Manual) Monocytes # (Manual) PT APTT D-Dimer Heparin Anti-Xa Level ABG pH ABG pO2 193.7 H ABG HCO3 27.7 H ABG O2 Saturation 99.2 H ABG Base Excess 3.4 H ABG Hemoglobin 9.2 L Oxyhemoglobin Sodium 146 H Potassium Chloride 110.3 H Carbon Dioxide BUN 33 H Creatinine 2.3 H Glucose 120 H POC Glucose 109 H Calcium Phosphorus Magnesium Iron TIBC Ferritin Total Bilirubin AST ALT Lactate Dehydrogenase Total Creatine Kinase Troponin T C-Reactive Protein Albumin Urine WBC (Auto) Urine Creatinine Urine Total Protein Complement C3 Coronavirus (PCR) Hepatitis C Antibody Crossmatch 05/17/21 05/17/21 05/17/21 10:30 11:33 15:35 WBC RBC Hgb Hct MCV MCHC RDW Lymph % (Auto) [place] % (Auto) Lymph # (Auto) [place] # (Auto) Seg Neutrophils % Seg Neuts % (Manual) Lymphocytes % (Manual) Monocytes % (Manual) Seg Neutrophils # Seg Neutrophils # Man Lymphocytes # (Manual) Monocytes # (Manual) PT APTT D-Dimer Heparin Anti-Xa Level ABG pH 7.457 H ABG pO2 162.5 H 103.7 H ABG HCO3 27.7 H 27.5 H ABG O2 Saturation ABG Base Excess 3.6 H ABG Hemoglobin 10.1 L 11.5 L Oxyhemoglobin Sodium Potassium Chloride Carbon Dioxide BUN Creatinine Glucose POC Glucose 122 H Calcium Phosphorus Magnesium Iron TIBC Ferritin Total Bilirubin AST ALT Lactate Dehydrogenase Total Creatine Kinase Troponin T C-Reactive Protein Albumin Urine WBC (Auto) Urine Creatinine Urine Total Protein Complement C3 Coronavirus (PCR) Hepatitis C Antibody Crossmatch 05/17/21 05/17/21 05/17/21 16:21 18:18 23:29 WBC RBC Hgb 9.6 L Hct 30.3 L MCV MCHC RDW Lymph % (Auto) [place] % (Auto) Lymph # (Auto) [place] # (Auto) Seg Neutrophils % Seg Neuts % (Manual) Lymphocytes % (Manual) Monocytes % (Manual) Seg Neutrophils # Seg Neutrophils # Man Lymphocytes # (Manual) Monocytes # (Manual) PT APTT D-Dimer Heparin Anti-Xa Level ABG pH ABG pO2 ABG HCO3 ABG O2 Saturation ABG Base Excess ABG Hemoglobin Oxyhemoglobin Sodium Potassium Chloride Carbon Dioxide BUN Creatinine Glucose POC Glucose 133 H 111 H Calcium Phosphorus Magnesium Iron TIBC Ferritin Total Bilirubin AST ALT Lactate Dehydrogenase Total Creatine Kinase Troponin T C-Reactive Protein Albumin Urine WBC (Auto) Urine Creatinine Urine Total Protein Complement C3 Coronavirus (PCR) Hepatitis C Antibody Crossmatch 05/18/21 05/18/21 05/18/21 04:15 04:15 05:01 WBC 16.8 H RBC 3.03 L Hgb 8.9 L Hct 28.7 L MCV 95 H MCHC 31 L RDW 16.4 H Lymph % (Auto) [place] % (Auto) Lymph # (Auto) [place] # (Auto) Seg Neutrophils % Seg Neuts % (Manual) Lymphocytes % (Manual) Monocytes % (Manual) Seg Neutrophils # Seg Neutrophils # Man Lymphocytes # (Manual) Monocytes # (Manual) PT APTT D-Dimer Heparin Anti-Xa Level ABG pH ABG pO2 ABG HCO3 ABG O2 Saturation ABG Base Excess ABG Hemoglobin Oxyhemoglobin Sodium Potassium Chloride Carbon Dioxide BUN 40 H Creatinine 2.1 H Glucose 115 H POC Glucose 113 H Calcium Phosphorus Magnesium Iron TIBC Ferritin Total Bilirubin AST ALT Lactate Dehydrogenase Total Creatine Kinase Troponin T C-Reactive Protein Albumin Urine WBC (Auto) Urine Creatinine Urine Total Protein Complement C3 Coronavirus (PCR) Hepatitis C Antibody Crossmatch 05/18/21 05/18/21 05/19/21 11:18 12:50 05:23 WBC 18.5 H RBC 3.31 L Hgb 9.9 L Hct 31.1 L MCV MCHC RDW 16.9 H Lymph % (Auto) [place] % (Auto) Lymph # (Auto) [place] # (Auto) Seg Neutrophils % Seg Neuts % (Manual) Lymphocytes % (Manual) Monocytes % (Manual) Seg Neutrophils # Seg Neutrophils # Man Lymphocytes # (Manual) Monocytes # (Manual) PT APTT D-Dimer Heparin Anti-Xa Level ABG pH ABG pO2 79.6 L ABG HCO3 28.0 H ABG O2 Saturation ABG Base Excess 3.3 H ABG Hemoglobin 6.2 L Oxyhemoglobin Sodium Potassium Chloride Carbon Dioxide BUN Creatinine Glucose POC Glucose 129 H Calcium Phosphorus Magnesium Iron TIBC Ferritin Total Bilirubin AST ALT Lactate Dehydrogenase Total Creatine Kinase Troponin T C-Reactive Protein Albumin Urine WBC (Auto) Urine Creatinine Urine Total Protein Complement C3 Coronavirus (PCR) Hepatitis C Antibody Crossmatch 05/19/21 05/19/21 05/19/21 05:23 05:23 11:24 WBC RBC Hgb Hct MCV MCHC RDW Lymph % (Auto) [place] % (Auto) Lymph # (Auto) [place] # (Auto) Seg Neutrophils % Seg Neuts % (Manual) Lymphocytes % (Manual) Monocytes % (Manual) Seg Neutrophils # Seg Neutrophils # Man Lymphocytes # (Manual) Monocytes # (Manual) PT APTT D-Dimer Heparin Anti-Xa Level ABG pH ABG pO2 ABG HCO3 ABG O2 Saturation ABG Base Excess ABG Hemoglobin Oxyhemoglobin Sodium Potassium Chloride Carbon Dioxide BUN 35 H 34 H Creatinine 2.0 H 2.1 H Glucose POC Glucose 111 H Calcium Phosphorus Magnesium Iron TIBC Ferritin Total Bilirubin AST ALT Lactate Dehydrogenase Total Creatine Kinase Troponin T C-Reactive Protein Albumin Urine WBC (Auto) Urine Creatinine Urine Total Protein Complement C3 Coronavirus (PCR) Hepatitis C Antibody Crossmatch 05/19/21 05/19/21 05/19/21 16:33 19:36 23:47 WBC RBC Hgb Hct MCV MCHC RDW Lymph % (Auto) [place] % (Auto) Lymph # (Auto) [place] # (Auto) Seg Neutrophils % Seg Neuts % (Manual) Lymphocytes % (Manual) Monocytes % (Manual) Seg Neutrophils # Seg Neutrophils # Man Lymphocytes # (Manual) Monocytes # (Manual) PT APTT 72.5 H* D-Dimer Heparin Anti-Xa Level ABG pH ABG pO2 ABG HCO3 ABG O2 Saturation ABG Base Excess ABG Hemoglobin Oxyhemoglobin Sodium Potassium Chloride Carbon Dioxide BUN Creatinine Glucose POC Glucose 131 H 122 H Calcium Phosphorus Magnesium Iron TIBC Ferritin Total Bilirubin AST ALT Lactate Dehydrogenase Total Creatine Kinase Troponin T C-Reactive Protein Albumin Urine WBC (Auto) Urine Creatinine Urine Total Protein Complement C3 Coronavirus (PCR) Hepatitis C Antibody Crossmatch 05/20/21 05/20/21 05/20/21 05:14 05:14 06:12 WBC 19.7 H RBC 3.19 L Hgb 9.5 L Hct 29.9 L MCV MCHC RDW 17.3 H Lymph % (Auto) [place] % (Auto) Lymph # (Auto) [place] # (Auto) Seg Neutrophils % Seg Neuts % (Manual) Lymphocytes % (Manual) Monocytes % (Manual) Seg Neutrophils # Seg Neutrophils # Man Lymphocytes # (Manual) Monocytes # (Manual) PT APTT D-Dimer Heparin Anti-Xa Level ABG pH ABG pO2 ABG HCO3 ABG O2 Saturation ABG Base Excess ABG Hemoglobin Oxyhemoglobin Sodium Potassium Chloride Carbon Dioxide BUN 31 H Creatinine 2.1 H Glucose 130 H POC Glucose 120 H Calcium Phosphorus Magnesium Iron TIBC Ferritin Total Bilirubin AST ALT Lactate Dehydrogenase Total Creatine Kinase Troponin T C-Reactive Protein Albumin Urine WBC (Auto) Urine Creatinine Urine Total Protein Complement C3 Coronavirus (PCR) Hepatitis C Antibody Crossmatch 05/20/21 05/20/21 05/20/21 11:10 18:12 23:55 WBC RBC Hgb Hct MCV MCHC RDW Lymph % (Auto) [place] % (Auto) Lymph # (Auto) [place] # (Auto) Seg Neutrophils % Seg Neuts % (Manual) Lymphocytes % (Manual) Monocytes % (Manual) Seg Neutrophils # Seg Neutrophils # Man Lymphocytes # (Manual) Monocytes # (Manual) PT APTT D-Dimer Heparin Anti-Xa Level ABG pH ABG pO2 ABG HCO3 ABG O2 Saturation ABG Base Excess ABG Hemoglobin Oxyhemoglobin Sodium Potassium Chloride Carbon Dioxide BUN Creatinine Glucose POC Glucose 152 H 137 H 146 H Calcium Phosphorus Magnesium Iron TIBC Ferritin Total Bilirubin AST ALT Lactate Dehydrogenase Total Creatine Kinase Troponin T C-Reactive Protein Albumin Urine WBC (Auto) Urine Creatinine Urine Total Protein Complement C3 Coronavirus (PCR) Hepatitis C Antibody Crossmatch 05/21/21 05/21/21 05/21/21 03:12 03:12 05:53 WBC 26.2 H RBC 2.58 L Hgb 7.7 L Hct 24.2 L MCV MCHC RDW 17.8 H Lymph % (Auto) [place] % (Auto) Lymph # (Auto) [place] # (Auto) Seg Neutrophils % Seg Neuts % (Manual) Lymphocytes % (Manual) Monocytes % (Manual) Seg Neutrophils # Seg Neutrophils # Man Lymphocytes # (Manual) Monocytes # (Manual) PT APTT D-Dimer Heparin Anti-Xa Level ABG pH ABG pO2 ABG HCO3 ABG O2 Saturation ABG Base Excess ABG Hemoglobin Oxyhemoglobin Sodium 133 L Potassium 5.7 H D Chloride Carbon Dioxide 21 L BUN 49 H Creatinine 2.6 H Glucose 160 H POC Glucose 118 H Calcium Phosphorus Magnesium Iron TIBC Ferritin Total Bilirubin AST ALT Lactate Dehydrogenase Total Creatine Kinase Troponin T C-Reactive Protein Albumin Urine WBC (Auto) Urine Creatinine Urine Total Protein Complement C3 Coronavirus (PCR) Hepatitis C Antibody Crossmatch 05/21/21 05/22/21 05/22/21 18:00 00:13 05:05 WBC RBC Hgb Hct MCV MCHC RDW Lymph % (Auto) [place] % (Auto) Lymph # (Auto) [place] # (Auto) Seg Neutrophils % Seg Neuts % (Manual) Lymphocytes % (Manual) Monocytes % (Manual) Seg Neutrophils # Seg Neutrophils # Man Lymphocytes # (Manual) Monocytes # (Manual) PT APTT D-Dimer Heparin Anti-Xa Level ABG pH 7.500 H ABG pO2 56.6 L ABG HCO3 ABG O2 Saturation ABG Base Excess ABG Hemoglobin 6.7 L Oxyhemoglobin 94.8 L Sodium 136 L Potassium 5.2 H Chloride Carbon Dioxide BUN 59 H Creatinine 2.6 H Glucose 138 H POC Glucose 109 H Calcium Phosphorus Magnesium Iron TIBC Ferritin Total Bilirubin AST ALT Lactate Dehydrogenase Total Creatine Kinase Troponin T C-Reactive Protein Albumin Urine WBC (Auto) Urine Creatinine Urine Total Protein Complement C3 Coronavirus (PCR) Hepatitis C Antibody Crossmatch 05/22/21 05/22/21 05/22/21 06:07 11:49 16:33 WBC RBC Hgb Hct MCV MCHC RDW Lymph % (Auto) [place] % (Auto) Lymph # (Auto) [place] # (Auto) Seg Neutrophils % Seg Neuts % (Manual) Lymphocytes % (Manual) Monocytes % (Manual) Seg Neutrophils # Seg Neutrophils # Man Lymphocytes # (Manual) Monocytes # (Manual) PT APTT D-Dimer Heparin Anti-Xa Level ABG pH ABG pO2 ABG HCO3 ABG O2 Saturation ABG Base Excess ABG Hemoglobin Oxyhemoglobin Sodium Potassium Chloride Carbon Dioxide BUN Creatinine Glucose POC Glucose 110 H 117 H 119 H Calcium Phosphorus Magnesium Iron TIBC Ferritin Total Bilirubin AST ALT Lactate Dehydrogenase Total Creatine Kinase Troponin T C-Reactive Protein Albumin Urine WBC (Auto) Urine Creatinine Urine Total Protein Complement C3 Coronavirus (PCR) Hepatitis C Antibody Crossmatch 0205/23/21 05/23/21 04:48 04:48 07:12 WBC 21.1 H RBC 2.03 L Hgb 6.2 L Hct 19.4 L* MCV 96 H MCHC RDW 17.5 H Lymph % (Auto) [place] % (Auto) Lymph # (Auto) [place] # (Auto) Seg Neutrophils % Seg Neuts % (Manual) Lymphocytes % (Manual) Monocytes % (Manual) Seg Neutrophils # Seg Neutrophils # Man Lymphocytes # (Manual) Monocytes # (Manual) PT APTT D-Dimer Heparin Anti-Xa Level ABG pH ABG pO2 ABG HCO3 ABG O2 Saturation ABG Base Excess ABG Hemoglobin Oxyhemoglobin Sodium Potassium Chloride Carbon Dioxide BUN 62 H Creatinine 2.8 H Glucose 110 H POC Glucose Calcium Phosphorus Magnesium Iron TIBC Ferritin Total Bilirubin AST ALT Lactate Dehydrogenase Total Creatine Kinase Troponin T C-Reactive Protein Albumin Urine WBC (Auto) Urine Creatinine Urine Total Protein Complement C3 Coronavirus (PCR) Hepatitis C Antibody Crossmatch See Detail 05/23/21 05/23/21 05/23/21 11:19 14:15 16:12 WBC RBC Hgb Hct MCV MCHC RDW Lymph % (Auto) [place] % (Auto) Lymph # (Auto) [place] # (Auto) Seg Neutrophils % Seg Neuts % (Manual) Lymphocytes % (Manual) Monocytes % (Manual) Seg Neutrophils # Seg Neutrophils # Man Lymphocytes # (Manual) Monocytes # (Manual) PT APTT D-Dimer Heparin Anti-Xa Level ABG pH ABG pO2 294.7 H ABG HCO3 ABG O2 Saturation 99.5 H ABG Base Excess ABG Hemoglobin 6.5 L Oxyhemoglobin Sodium Potassium Chloride Carbon Dioxide BUN Creatinine Glucose POC Glucose 127 H 120 H Calcium Phosphorus Magnesium Iron TIBC Ferritin Total Bilirubin AST ALT Lactate Dehydrogenase Total Creatine Kinase Troponin T C-Reactive Protein Albumin Urine WBC (Auto) Urine Creatinine Urine Total Protein Complement C3 Coronavirus (PCR) Hepatitis C Antibody Crossmatch 05/23/21 05/23/21 05/23/21 16:30 16:30 18:54 WBC 21.7 H RBC 2.40 L Hgb 7.1 L Hct 22.9 L MCV 96 H MCHC 31 L RDW 16.8 H Lymph % (Auto) [place] % (Auto) Lymph # (Auto) [place] # (Auto) Seg Neutrophils % Seg Neuts % (Manual) Lymphocytes % (Manual) Monocytes % (Manual) Seg Neutrophils # Seg Neutrophils # Man Lymphocytes # (Manual) Monocytes # (Manual) PT APTT D-Dimer Heparin Anti-Xa Level ABG pH ABG pO2 ABG HCO3 ABG O2 Saturation ABG Base Excess ABG Hemoglobin Oxyhemoglobin Sodium Potassium Chloride Carbon Dioxide BUN Creatinine Glucose POC Glucose Calcium Phosphorus Magnesium Iron TIBC Ferritin Total Bilirubin AST ALT Lactate Dehydrogenase Total Creatine Kinase Troponin T C-Reactive Protein Albumin Urine WBC (Auto) 12.0 H Urine Creatinine 100.1 H Urine Total Protein Complement C3 Coronavirus (PCR) Hepatitis C Antibody Crossmatch 05/23/21 05/24/21 05/24/21 Unknown 00:11 04:11 WBC 16.7 H RBC 2.19 L Hgb 6.4 L Hct 20.5 L MCV MCHC 31 L RDW 17.0 H Lymph % (Auto) [place] % (Auto) Lymph # (Auto) [place] # (Auto) Seg Neutrophils % Seg Neuts % (Manual) Lymphocytes % (Manual) Monocytes % (Manual) Seg Neutrophils # Seg Neutrophils # Man Lymphocytes # (Manual) Monocytes # (Manual) PT APTT D-Dimer Heparin Anti-Xa Level ABG pH ABG pO2 ABG HCO3 ABG O2 Saturation ABG Base Excess ABG Hemoglobin Oxyhemoglobin Sodium Potassium Chloride Carbon Dioxide BUN Creatinine Glucose POC Glucose 110 H Calcium Phosphorus Magnesium Iron 10 L TIBC 151 L Ferritin Total Bilirubin AST ALT Lactate Dehydrogenase 311 H Total Creatine Kinase Troponin T C-Reactive Protein Albumin Urine WBC (Auto) Urine Creatinine Urine Total Protein Complement C3 Coronavirus (PCR) Hepatitis C Antibody Crossmatch 05/24/21 05/24/21 05/24/21 04:11 05:10 09:55 WBC RBC Hgb Hct MCV MCHC RDW Lymph % (Auto) [place] % (Auto) Lymph # (Auto) [place] # (Auto) Seg Neutrophils % Seg Neuts % (Manual) Lymphocytes % (Manual) Monocytes % (Manual) Seg Neutrophils # Seg Neutrophils # Man Lymphocytes # (Manual) Monocytes # (Manual) PT APTT D-Dimer Heparin Anti-Xa Level ABG pH ABG pO2 141.9 H ABG HCO3 ABG O2 Saturation ABG Base Excess ABG Hemoglobin 6.5 L Oxyhemoglobin Sodium Potassium Chloride Carbon Dioxide BUN 78 H Creatinine 2.8 H Glucose 119 H POC Glucose 108 H Calcium Phosphorus 5.30 H Magnesium 2.60 H Iron TIBC Ferritin Total Bilirubin AST 152 H ALT 125 H Lactate Dehydrogenase Total Creatine Kinase Troponin T C-Reactive Protein Albumin 2.5 L Urine WBC (Auto) Urine Creatinine Urine Total Protein Complement C3 Coronavirus (PCR) Hepatitis C Antibody Crossmatch 05/25/21 05/25/21 05/25/21 04:25 04:25 05:19 WBC 13.8 H RBC 2.78 L Hgb 8.3 L Hct 25.6 L MCV MCHC RDW 16.2 H Lymph % (Auto) [place] % (Auto) Lymph # (Auto) [place] # (Auto) Seg Neutrophils % Seg Neuts % (Manual) Lymphocytes % (Manual) Monocytes % (Manual) Seg Neutrophils # Seg Neutrophils # Man Lymphocytes # (Manual) Monocytes # (Manual) PT APTT D-Dimer Heparin Anti-Xa Level ABG pH ABG pO2 ABG HCO3 ABG O2 Saturation ABG Base Excess ABG Hemoglobin Oxyhemoglobin Sodium Potassium Chloride Carbon Dioxide BUN 76 H Creatinine 2.6 H Glucose 110 H POC Glucose 123 H Calcium 8.1 L Phosphorus Magnesium Iron TIBC Ferritin Total Bilirubin AST ALT Lactate Dehydrogenase Total Creatine Kinase Troponin T C-Reactive Protein Albumin Urine WBC (Auto) Urine Creatinine Urine Total Protein Complement C3 Coronavirus (PCR) Hepatitis C Antibody Crossmatch 05/25/21 05/25/21 05/25/21 09:40 17:11 23:37 WBC RBC Hgb Hct MCV MCHC RDW Lymph % (Auto) [place] % (Auto) Lymph # (Auto) [place] # (Auto) Seg Neutrophils % Seg Neuts % (Manual) Lymphocytes % (Manual) Monocytes % (Manual) Seg Neutrophils # Seg Neutrophils # Man Lymphocytes # (Manual) Monocytes # (Manual) PT APTT D-Dimer Heparin Anti-Xa Level ABG pH ABG pO2 150.9 H ABG HCO3 ABG O2 Saturation ABG Base Excess ABG Hemoglobin 7.0 L Oxyhemoglobin Sodium Potassium Chloride Carbon Dioxide BUN Creatinine Glucose POC Glucose 108 H 117 H Calcium Phosphorus Magnesium Iron TIBC Ferritin Total Bilirubin AST ALT Lactate Dehydrogenase Total Creatine Kinase Troponin T C-Reactive Protein Albumin Urine WBC (Auto) Urine Creatinine Urine Total Protein Complement C3 Coronavirus (PCR) Hepatitis C Antibody Crossmatch 05/26/21 05/26/21 05/26/21 05:02 07:09 07:09 WBC 15.8 H RBC 3.21 L Hgb 9.2 L Hct 29.6 L MCV MCHC 31 L RDW 16.6 H Lymph % (Auto) [place] % (Auto) Lymph # (Auto) [place] # (Auto) Seg Neutrophils % Seg Neuts % (Manual) Lymphocytes % (Manual) Monocytes % (Manual) Seg Neutrophils # Seg Neutrophils # Man Lymphocytes # (Manual) Monocytes # (Manual) PT APTT D-Dimer Heparin Anti-Xa Level ABG pH ABG pO2 ABG HCO3 ABG O2 Saturation ABG Base Excess ABG Hemoglobin Oxyhemoglobin Sodium Potassium Chloride Carbon Dioxide BUN 62 H Creatinine 2.1 H Glucose 112 H POC Glucose 112 H Calcium 8.2 L Phosphorus Magnesium Iron TIBC Ferritin Total Bilirubin AST ALT Lactate Dehydrogenase Total Creatine Kinase Troponin T C-Reactive Protein Albumin Urine WBC (Auto) Urine Creatinine Urine Total Protein Complement C3 Coronavirus (PCR) Hepatitis C Antibody Crossmatch 05/26/21 05/26/21 05/26/21 09:10 09:50 11:20 WBC RBC Hgb Hct MCV MCHC RDW Lymph % (Auto) [place] % (Auto) Lymph # (Auto) [place] # (Auto) Seg Neutrophils % Seg Neuts % (Manual) Lymphocytes % (Manual) Monocytes % (Manual) Seg Neutrophils # Seg Neutrophils # Man Lymphocytes # (Manual) Monocytes # (Manual) PT APTT D-Dimer Heparin Anti-Xa Level ABG pH ABG pO2 135.5 H ABG HCO3 ABG O2 Saturation ABG Base Excess ABG Hemoglobin 9.6 L Oxyhemoglobin Sodium Potassium Chloride Carbon Dioxide BUN Creatinine Glucose POC Glucose 109 H Calcium Phosphorus Magnesium Iron TIBC Ferritin Total Bilirubin AST ALT Lactate Dehydrogenase Total Creatine Kinase Troponin T C-Reactive Protein Albumin Urine WBC (Auto) 38.0 H Urine Creatinine Urine Total Protein Complement C3 Coronavirus (PCR) Hepatitis C Antibody Crossmatch Chest x-ray: image reviewed (no acute process) Allied health notes reviewed: nursing
--- NOTE | 2021-05-26 12:38 | Progress Note ---
Assessment and Plan Cultures: Blood culture 05/07/2021 no growth so far Blood culture 05/10/2021 no growth so far Sputum culture 05/16/2021 Enterobacter 05/23/2021 tracheal aspirate culture: In process A/P: 56 yo M PMHx smoking, A. fib, HTN, medication non-compliance admitted with #Severe COVID-19 pneumonia: Patient presented with a week of symptoms, chest x- ray with diffuse bilateral infiltrates, admission O2 sats decreased on room air. Inflammatory markers elevated. Was not a candidate for Remdesivir. Completed steroids. #Acute hypoxemic respiratory failure: secondary to COVID-19 infection. On the vent. #VAP: Cultures with Enterobacter. #YE: Renally dose medications. #Acute anemia #Urinary tox screen positive for amphetamines Recommendations: -persistently febrile, agree with reculturing -continue IV ertapenem, dose increased to 1 gm daily with improvement in creatinine, D4 -hold off on additional abx at this time Rhonda Mooney MD, FACP, [facility] ([facility] O: [phone] F: [phone] Subjective Date of service: 05/26/21 Principal diagnosis: AHRF; COVID-19 infection; NSTEMI; YE; HFrEF (35-40%); Polysubstance abuse Interval history: Febrile again. Remains on the vent. Objective - Exam Narrative Exam: Physical Exam: Constitutional: sedated, intubated, on the vent Head, Ears, Nose: Normocephalic, atraumatic. External ears, nose normal Eyes: Conjunctivae/corneas clear. No icterus. No ptosis. Neck: intubated Oral: intubated Cardiovascular: S1, S2 + Respiratory: AE fair bilaterally and equal GI: Soft, bowel sounds + Musculoskeletal: No pedal edema, no cyanosis. Skin: No rash or abscess Hem/Lymphatic: No palpable cervical or supraclavicular nodes. No lymphangitis Psych: no agitation Neurological: sedated, intubated, on the vent, exam limited - Constitutional Vitals: Vital Signs Temp Pulse Resp BP Pulse Ox 98.4 F 72 21 111/70 98 05/26/21 09:55 05/26/21 10:00 05/26/21 10:00 05/26/21 10:00 05/26/21 10:00 Temperature -Last 24 Hours Temperature 98.4 F Temperature 102.3 F Temperature 102.2 F Temperature 100.1 F Temperature 101.9 F Temperature 99.3 F - Labs CBC & Chem 7: 05/26/21 07:09 05/26/21 07:09 Labs: Abnormal lab results 05/25/21 05/25/21 05/26/21 Range/Units 17:11 23:37 05:02 WBC (4.5-11.0) K/mm3 RBC (3.65-5.03) M/mm3 Hgb (11.8-15.2) gm/dl Hct (35.5-45.6) % MCHC (32-34) % RDW (13.2-15.2) % ABG pO2 (80.0-90.0) mm Hg ABG Hemoglobin (14.0-18.0) gm/dl BUN (9-20) mg/dL Creatinine (0.8-1.3) mg/dL Glucose (75-100) mg/dL POC Glucose 108 H 117 H 112 H (70-105) mg/dL Calcium (8.4-10.2) mg/dL Urine WBC (Auto) (0.0-6.0) /HPF 05/26/21 05/26/21 05/26/21 Range/Units 07:09 07:09 09:10 WBC 15.8 H (4.5-11.0) K/mm3 RBC 3.21 L (3.65-5.03) M/mm3 Hgb 9.2 L (11.8-15.2) gm/dl Hct 29.6 L (35.5-45.6) % MCHC 31 L (32-34) % RDW 16.6 H (13.2-15.2) % ABG pO2 135.5 H (80.0-90.0) mm Hg ABG Hemoglobin 9.6 L (14.0-18.0) gm/dl BUN 62 H (9-20) mg/dL Creatinine 2.1 H (0.8-1.3) mg/dL Glucose 112 H (75-100) mg/dL POC Glucose (70-105) mg/dL Calcium 8.2 L (8.4-10.2) mg/dL Urine WBC (Auto) (0.0-6.0) /HPF 05/26/21 05/26/21 Range/Units 09:50 11:20 WBC (4.5-11.0) K/mm3 RBC (3.65-5.03) M/mm3 Hgb (11.8-15.2) gm/dl Hct (35.5-45.6) % MCHC (32-34) % RDW (13.2-15.2) % ABG pO2 (80.0-90.0) mm Hg ABG Hemoglobin (14.0-18.0) gm/dl BUN (9-20) mg/dL Creatinine (0.8-1.3) mg/dL Glucose (75-100) mg/dL POC Glucose 109 H (70-105) mg/dL Calcium (8.4-10.2) mg/dL Urine WBC (Auto) 38.0 H (0.0-6.0) /HPF - Imaging and cardiology Chest x-ray: report reviewed, image reviewed (stable, no interval worsening)
[2021-05-26] MEDS ORDERED: fentaNYL 25 MCG/HR PATCH 72HR TD ONE (13:00)
[2021-05-26] MEDS: ERTAPENEM 1 GM in SODIUM CHLORIDE 0.9% 50 ML IV SCH (13:38)
--- NOTE | 2021-05-26 15:47 | Progress Note ---
Assessment and Plan Assessment and plan: This is a 56-year-old male with nicotine and cocaine abuse, atrial fibrillation, hypertension and chronic medication noncompliance complicated by homelessness admitted with acute hypoxic respiratory failure, COVID-19 pneumonia, transaminitis, NSTEMI, hypertensive emergency and acute kidney injury A/P Neuro: Metabolic encephalopathy, polysubstance abuse (but amphetamine and tobacco) -Sedated with fentanyl drip -Goal RASS 0 to -1 -On CIWA protocol -Librium and Seroquel taper started 05/25 -Maintain sleep-wake cycle -Monitor QTc -Avoid delirium -UDS positive for amphetamines -We will need cessation counseling when appropriate -fent patch x1- trial dose Cardio: Heart failure reduced EF, cardiomyopathy, NSTEMI, paroxysmal atrial fibrillation, S/p hypertensive emergency, h/o HTN -Continue beta-sylvia, aspirin, statin, hydral, titrate as needed -Cardiology consulted, appreciate recommendations -Echo 05/04/2021-EF 35 to 40%. Moderate concentric LVH. Moderate global hypokinesis of left ventricle. Mild mitral regurgitation. Mild pulmonary hype rtension. Echocardiogram reviewed (08/27/2020): LVEF is 50 to 55%. Mild to moderate concentric LVF. Severe diastolic dysfunction is present (restrictive filling). Right ventricle is mildly hypokinetic. RVSP is 48 mmHg. No valvular abnormalities. -S/p Cardizem drip for atrial fibrillation -Blood pressure monitoring per protocol Respiratory: Acute hypoxic respiratory failure -[facility] consulted, appreciate recommendations -Intubated on 05/05 in the ED and extubated 05/13, Re-intubated on 05/16 and Extubated on 05/18 -Reintubated 05/23 with 8.0 OETT at 22 cm at the lips -s/p bipap -A.m. vent settings: Assist control tidal volume 450, rate 16, PEEP 8, FiO2 30% -AM ABG noted -VAP bundle -Continues SPO2 monitoring GI: ? GIB, Transaminitis, h/o hepatitis C -GI consulted, appreciate recommendations -IV Protonix BID -s/p Protonix gtt -24-hour +[id number] -BR: Senokot -Renal ultrasound showed incidental finding of cholelithiasis -Continue supportive management -Trend LFTs : Acute kidney injury likely secondary to vasomotor nephropathy -Nephrology consulted, appreciate recommendations -IVF per nephrology -Avoid nephrotoxic medications -Renally dose medication -Strict intake and output -FeNa indicates prerenal -Renal ultrasound completed: 1.7 hyper echoic mass within the left upper pole -Monitor follow-up with CT once stable ID: Severe COVID-19 pneumonia, Enterobacter aerogenes PNA, s/p Enterococcus faec shahriar UTI -Infectious disease consulted, appreciate recommendations -COVID-19 PCR positive -s/p droplet/precautions for 21 days -Not a candidate for remdesivir given acute kidney injury -s/p Dexamethasone for 10 days -Anticoagulation per hospital protocol -Trend COVID-19 from 2 markers (ferritin, D-dimer, CRP, LDH) -05/09 urine culture with Enterococcus faecalis -05/16 tracheal aspirate with Enterobacter aerogenes -Due to persistent fevers switched cefepime to IV ertapenem renally adjusted 05/24 -GC negative -f/u culture data -re-cultured 05/26 Heme: Anemia, Acute DVT (resolved) -Bilateral lower extremity Doppler ultrasound shows acute DVT -heparin gtt converted to DOAC but now d/c -vascular surgery consulted for possible IVC filter placement, appreciate r ecommendations -repeat doppler shows no DVT -recommends subq heparin TID for prophylaxis if tolerated -Repeat BLE US tomorrow per [facility] -Pulmonary perfusion study showed low probability of pulmonary embolism -S/p 3 unit PRBC -Trend CBC -Transfuse for hemoglobin less than 7 Endo: NAD -Accu-Cheks every 6 -SSI -Avoid hypoglycemia The high probability of a clinically significant, sudden or life threatening deterioration of the [cardio/resp] system(s) required my full and direct attention, intervention and personal management. The aggregate critical care time was [60] minutes. This time is in addition to time spent performing reported procedures but includes the following: [x] Data Review and interpretation [x] Patient assessment and monitoring of vital signs [x] Documentation [x] Medication orders and management Disposition Plan: icu Total Time Spent with Patient (Minutes): 60 History Interval history: This is a 56-year-old male with a nicotine abuse, A. fib, hypertension, and chronic medication noncompliance and homelessness who presented to emergency department on 05/04 with complaints of dyspnea on exertion for the past month worsening over the past 3 days, intermittent left-sided chest tightness with activity, and persistent cough without fever. Work-up in the emergency dep artment revealed anemia, hyponatremia, elevated BUN/creatinine and transaminitis. Patient was admitted to the hospitalist service with acute kidney injury and accelerated hypertension. Hospital course to date 05/04/2021. Cardiology was considering patient for [facility] [employer]. However, patient with elevated creatinine therefore will hold off on cath evaluation. Nephrology consultation for acute kidney injury. Etiology likely secondary to vasomotor nephropathy/dehydration. We will start IV fluid hydration. Check renal ultrasound to rule out obstructive uropathy. We will resume home medications for the accelerated hypertension 05/05/2021. Echocardiogram reveals EF 35-40% with moderate concentric left ventricular hypertrophy. Moderate global hypokinesis of left ventricle. Mild mitral regurgitation. Mild pulmonary hypertension. Troponins are believed to be elevated in the setting of acute kidney injury. No beta-blockers due to cocaine use continue heparin and nitro drip. Continue CIWA protocol. Await urine studies 05/06/2021. Patient decompensated yesterday with worsening respiratory failure and difficulty to protect airway. Patient was breathing sonorously, and hypoxic. Patient was intubated and currently is on mechanical ventilation. Patient with AC mode ventilation rate of 20, tidal volume 450, FiO2 40% and PEEP of 6. COVID PCR testing on 05/05/2021 was found to be positive. Echocardiogram completed on this admission shows worsening EF from August 2020. Echocardiogram now reveals moderate concentric left ventricular hypertrophy with moderate global hypokinesis and EF of 35-40%. Mild pulmonary hypertension. 05/08: Continue current management, renal stable, LFTs stable and if improved will start on statin therapy. 05/09: Patient is febrile, will panculture, PSV today. CRP pending. Mucoid discharge noted from meatus which was sent for culture. Hypernatremia persists, free water flushes increased 05/10: PSV trial per [facility], T-max 102.3, given mildly elevated procalcitonin started on ceftriaxone 2 g every 24 for 2 days per ID. Overnight patient had atrial fibrillation which was treated with Cardizem drip and converted to sinus rhythm. Metoprolol p.o. increased to 3 times daily. 05/11: Patient still running fevers and if still febrile tomorrow will escalate to cefepime per ID as he is currently on ceftriaxone, [facility] attempted PSV but patient became agitated and was switched back to pressure control. Lower extremity ultrasound shows acute DVT and started on heparin drip. Started on scheduled Librium. Patient remains with hypernatremia and elevated creatinine and on IV fluids. Free water flushes adjusted. Started on vancomycin today 05/12: Patient placed on pressure support trial without fentanyl, hypernatremia improving, hyperkalemia noted. Slight improvement to renal function. 05/13: Patient was extubated today, ID change antibiotics to Zosyn for Enterococcus, was started tapering Librium in the morning, renal function slightly improved. Possible transfer to floor tomorrow. ST evaluation for swallow ordered. 05/14: Patient became hypoglycemic overnight and started on dextrose IV fluids. Accu-Chek fingersticks have been low but on a.m. BMP patient blood glucose is 100. Other BMP pending. Feeding tube replaced due to need for enteral access and patient being severely confused. Renal functions remains the same. Upon confirmation will restart tube feedings, p.o. medications and free water flushe s. 05/15: Remains confused/somnolent on my encounter. Librium taper in 24hrs per PCCM recs. Remains hypertensive. Added amlodipine 10 mg NG and labetalol prn. ST eval today but doubt he will participate. Potassium replaced. Renal function improving overall, however, hypernatremic. Inc TF FWF to 250 cc q4hr. 05/16: Respiratory distress this AM, hypoxic in 60's not protecting airway. Required intubation, patient now ICU patient. Reduce fluid to FWF only, IVF d/c off jun. CXR ordered demonstrates pulmonary edema. Lasix 40 mg IV bid ordered. Troponin elevated, continue heparin gtt. Would recommend decreasing sedating medications at this point, agree with librium taper. 05/17: Patient remains on the vent and sedated, RASS -3. Plan for possible sedation vacation today. D/w [facility] plan to wean for possible extubation on the vent. 2: Tolerated 4hrs of sedation vacation yesterday, on low dose fentanyl this am. Patient is tolerating PST this am. Plan to wean off sedation and wean vent setting for possible extubation today. 05/19: s/p extubation now stable on 3L NC. Lethargic this am, will decreased Seroquel. Speech consult for swallow eval, continue enteral nutrition via NGT for now. Hypertensive throughout the night, Norvac added. Remains on heparin gtt for DVT, might need to transition to PO AC, will d/w CCM. Patient is stable for transfer to [facility] 05/20: Continue sepsis work up considering fever, aspiration precautions. Discussed with nursing staff will hold am seroquel. Continue tube feed. RENAL Function remains relatively stable, possible has peaked. 05/21: Patient seen and examined, resting but still with mild increase wob, CXR concerning with right lobar infiltrate, continue antibiotics, will give kayxalate in addition due to hyperkalemia, Will discuss with ID due to rising luekocytosis possible worsening sepsis. 05/22: Patient remains on BIPAP, still sedated appearing, cxr concerning for possible aspiration, unfortunately still worsening renal status. Will continue abx and continue collaboration with pulmonary team to ensure no over sedation. C ontinue abx, will add kayaxlate 05/23: Patient noted to have severe anemia today, will initiate GI work up and also Hemolysis work up. Will discuss with Vascular about possible IVC filter placement. Continue BIPAP, goal is to see if we can avert re-intubation. Transfuse 1 UNIT PRBC, Will discuss with Pulmonary about holding Eliquis for now. Renal failure still ongoing. 05/24: Patient had a positive occult and was anemic again today and received PRBC. GI was consulted. Repeat Dopplers are negative for DVT vascular recommends a CT/SQ heparin if tolerated and nephrology would like to increase IV fluids per FeNa results. Decrease metoprolol, seroquel and librium. surgery consult for trach/peg 05/25: RT decreased FiO2. GI signed off, Cr slightly improved, Anemia improved. Tmax 101.4 noted, abx per ID. 05/26: Patient had a temperature spike and was recultured, no plan today changes made as patient continues to breathe over the vent, one time dose of fent patch, repeat dopllar in 1 week per ccm, miralax q hs Hospitalist Physical - Constitutional Vitals: Temp Pulse Resp BP Pulse Ox 98.4 F 65 22 136/84 98 05/26/21 12:00 05/26/21 14:00 05/26/21 14:00 05/26/21 14:00 05/26/21 14:00 General appearance: Present: no acute distress - EENT Eyes: Present: PERRL, EOM intact ENT: dentition normal - Neck Neck: Present: normal ROM - Respiratory Respiratory effort: normal Respiratory: bilateral: diminished - Cardiovascular Rhythm: regular Heart Sounds: Present: S1 & S2. Absent: systolic murmur, diastolic murmur - Extremities Extremities: no ischemia, pulses intact, pulses symmetrical, normal temperature Extremity abnormal: edema Peripheral Pulses: within normal limits - Abdominal General gastrointestinal: soft, non-tender, non-distended, normal bowel sounds - Integumentary Integumentary: Present: warm, dry - Psychiatric Psychiatric: other (sedated) - Neurologic Neurologic: no focal deficits - Allied Health Allied health notes reviewed: nursing, RT, social work HEART Score - HEART Score EKG: Non-specific Age: 45-65 Risk factors: 1-2 risk factors Troponin: Troponin T 0.400 ng/mL (0.00-0.029) H* D 05/16/21 18:40 Troponin: 1-3x normal limit - Critical Actions Critical Actions: 4-6 pts:12-16.6% risk of adverse cardiac event. Should be admitted Results - Labs CBC & Chem 7: 05/26/21 07:09 05/26/21 07:09 Labs: Laboratory Last Values WBC 15.8 K/mm3 (4.5-11.0) H 05/26/21 07:09 RBC 3.21 M/mm3 (3.65-5.03) L 05/26/21 07:09 Hgb 9.2 gm/dl (11.8-15.2) L 05/26/21 07:09 Hct 29.6 % (35.5-45.6) L 05/26/21 07:09 MCV 92 fl (84-94) 05/26/21 07:09 MCH 29 pg (28-32) 05/26/21 07:09 MCHC 31 % (32-34) L 05/26/21 07:09 RDW 16.6 % (13.2-15.2) H 05/26/21 07:09 Plt Count 388 K/mm3 (140-440) 05/26/21 07:09 Lymph % (Auto) Deck Officer 05/16/21 10:21 [place] % (Auto) Deck Officer 05/16/21 10:21 Eos % (Auto) Deck Officer 05/16/21 10:21 Baso % (Auto) Deck Officer 05/16/21 10:21 Lymph # (Auto) Deck Officer 05/16/21 10:21 [place] # (Auto) Deck Officer 05/16/21 10:21 Eos # (Auto) Deck Officer 05/16/21 10:21 Baso # (Auto) Deck Officer 05/16/21 10:21 Add Manual Diff Complete 05/16/21 10:21 Total Counted 100 05/16/21 10:21 Seg Neutrophils % Deck Officer 05/16/21 10:21 Seg Neuts % (Manual) 83.0 % (40.0-70.0) H 05/16/21 10:21 Band Neutrophils % 2.0 % 05/16/21 10:21 Lymphocytes % (Manual) 4.0 % (13.4-35.0) L 05/16/21 10:21 Reactive Lymphs % (Man) 0 % 05/16/21 10:21 Monocytes % (Manual) 9.0 % (0.0-7.3) H 05/16/21 10:21 Eosinophils % (Manual) 0 % (0.0-4.3) 05/16/21 10:21 Basophils % (Manual) 0 % (0.0-1.8) 05/16/21 10:21 Metamyelocytes % 0 % 05/16/21 10:21 Myelocytes % 2.0 % 05/16/21 10:21 Promyelocytes % 0 % 05/16/21 10:21 Blast Cells % 0 % 05/16/21 10:21 Nucleated RBC % Not Reportable 05/16/21 10:21 Seg Neutrophils # Deck Officer 05/16/21 10:21 Seg Neutrophils # Man 22.9 K/mm3 (1.8-7.7) H 05/16/21 10:21 Band Neutrophils # 0.6 K/mm3 05/16/21 10:21 Lymphocytes # (Manual) 1.1 K/mm3 (1.2-5.4) L 05/16/21 10:21 Abs React Lymphs (Man) 0.0 K/mm3 05/16/21 10:21 Monocytes # (Manual) 2.5 K/mm3 (0.0-0.8) H 05/16/21 10:21 Eosinophils # (Manual) 0.0 K/mm3 (0.0-0.4) 05/16/21 10:21 Basophils # (Manual) 0.0 K/mm3 (0.0-0.1) 05/16/21 10:21 Metamyelocytes # 0.0 K/mm3 05/16/21 10:21 Myelocytes # 0.6 K/mm3 05/16/21 10:21 Promyelocytes # 0.0 K/mm3 05/16/21 10:21 Blast Cells # 0.0 K/mm3 05/16/21 10:21 WBC Morphology Not Reportable 05/16/21 10:21 Hypersegmented Neuts Not Reportable 05/16/21 10:21 Hyposegmented Neuts Not Reportable 05/16/21 10:21 Hypogranular Neuts Not Reportable 05/16/21 10:21 Smudge Cells Not Reportable 05/16/21 10:21 Toxic Granulation Not Reportable 05/16/21 10:21 Toxic Vacuolation Not Reportable 05/16/21 10:21 Dohle Bodies Not Reportable 05/16/21 10:21 Pelger-Huet Anomaly Not Reportable 05/16/21 10:21 Jesse Rods Not Reportable 05/16/21 10:21 Platelet Estimate Consistent w auto 05/16/21 10:21 Clumped Platelets Few 05/16/21 10:21 Plt Clumps, EDTA Not Reportable 05/16/21 10:21 Large Platelets Not Reportable 05/16/21 10:21 Giant Platelets Not Reportable 05/16/21 10:21 Platelet Satelliting Not Reportable 05/16/21 10:21 Plt Morphology Comment Not Reportable 05/16/21 10:21 RBC Morphology Not Reportable 05/16/21 10:21 Dimorphic RBCs Not Reportable 05/16/21 10:21 Polychromasia Not Reportable 05/16/21 10:21 Hypochromasia Not Reportable 05/16/21 10:21 Poikilocytosis Not Reportable 05/16/21 10:21 Anisocytosis 1+ 05/16/21 10:21 Microcytosis Not Reportable 05/16/21 10:21 Macrocytosis Few 05/16/21 10:21 Spherocytes Not Reportable 05/16/21 10:21 Pappenheimer Bodies Not Reportable 05/16/21 10:21 Sickle Cells Not Reportable 05/16/21 10:21 Target Cells Not Reportable 05/16/21 10:21 Tear Drop Cells Not Reportable 05/16/21 10:21 Ovalocytes Not Reportable 05/16/21 10:21 Helmet Cells Not Reportable 05/16/21 10:21 [place] Bodies Not Reportable 05/16/21 10:21 [place] Rings Not Reportable 05/16/21 10:21 [place] Cells Not Reportable 05/16/21 10:21 Bite Cells Not Reportable 05/16/21 10:21 Crenated Cell Not Reportable 05/16/21 10:21 Elliptocytes Not Reportable 05/16/21 10:21 Acanthocytes (Spur) Not Reportable 05/16/21 10:21 Rouleaux Not Reportable 05/16/21 10:21 Hemoglobin C Crystals Not Reportable 05/16/21 10:21 Schistocytes Not Reportable 05/16/21 10:21 Malaria parasites Not Reportable 05/16/21 10:21 Tomi Bodies Not Reportable 05/16/21 10:21 Haptoglobin 254 mg/dL (43-212) H 05/23/21 18:54 Hem Pathologist Commnt No 05/16/21 10:21 PT 14.9 Sec. (12.2-14.9) 05/25/21 04:25 INR 1.05 (0.87-1.13) 05/25/21 04:25 APTT 72.5 Sec. (24.2-36.6) H* 05/19/21 19:36 D-Dimer 2730.61 ng/mlDDU (0-234) H 05/12/21 07:19 Heparin Anti-Xa Level 0.47 U.I./ml (0.3-0.7) 05/19/21 05:23 ABG pH 7.441 pH Units (7.350-7.450) 05/26/21 09:10 ABG pCO2 37.8 mm Hg 05/26/21 09:10 ABG pO2 135.5 mm Hg (80.0-90.0) H 05/26/21 09:10 ABG HCO3 25.1 mmol/L (20.0-26.0) 05/26/21 09:10 ABG O2 Saturation 98.7 % (95.0-99.0) 05/26/21 09:10 ABG O2 Content 13.2 (0.0-44) 05/26/21 09:10 ABG Base Excess 1.0 mmol/L (-2.0-3.0) 05/26/21 09:10 ABG Hemoglobin 9.6 gm/dl (14.0-18.0) L 05/26/21 09:10 ABG Carboxyhemoglobin 2.0 % (0.0-5.0) 05/26/21 09:10 ABG Methemoglobin 0.6 % (0.0-1.5) 05/26/21 09:10 Oxyhemoglobin 96.1 % (95.0-99.0) 05/26/21 09:10 FiO2 30 % 05/26/21 09:10 Sodium 137 mmol/L (137-145) 05/26/21 07:09 Potassium 4.6 mmol/L (3.6-5.0) 05/26/21 07:09 Chloride 103.9 mmol/L (98-107) 05/26/21 07:09 Carbon Dioxide 22 mmol/L (22-30) 05/26/21 07:09 Anion Gap 16 mmol/L 05/26/21 07:09 BUN 62 mg/dL (9-20) H 05/26/21 07:09 Creatinine 2.1 mg/dL (0.8-1.3) H 05/26/21 07:09 Estimated GFR 33 ml/min 05/26/21 07:09 BUN/Creatinine Ratio 30 % 05/26/21 07:09 Glucose 112 mg/dL (75-100) H 05/26/21 07:09 POC Glucose 109 mg/dL (70-105) H 05/26/21 11:20 Lactic Acid 0.90 mmol/L (0.7-2.0) 05/20/21 09:17 Calcium 8.2 mg/dL (8.4-10.2) L 05/26/21 07:09 Phosphorus 3.70 mg/dL (2.5-4.5) D 05/25/21 04:25 Magnesium 2.30 mg/dL (1.7-2.3) 05/25/21 04:25 Iron 10 ug/dL (49-181) L 05/23/21 Unknown TIBC 151 mcg/dL (250-450) L 05/23/21 Unknown Ferritin 640.2 ng/mL (30.0-300.0) H 05/12/21 07:19 Total Bilirubin 0.50 mg/dL (0.1-1.2) 05/24/21 04:11 AST 152 units/L (5-40) H 05/24/21 04:11 ALT 125 units/L (7-56) H 05/24/21 04:11 Alkaline Phosphatase 72 units/L (35-129) 05/24/21 04:11 Lactate Dehydrogenase 311 units/L (91-180) H 05/23/21 Unknown Total Creatine Kinase 406 units/L (55-170) H 05/04/21 08:42 Troponin T 0.400 ng/mL (0.00-0.029) H* D 05/16/21 18:40 C-Reactive Protein 1.60 mg/dL (0.00-1.30) H 05/12/21 07:19 Total Protein 6.6 g/dL (6.3-8.2) 05/24/21 04:11 Albumin 2.5 g/dL (3.9-5) L 05/24/21 04:11 Albumin/Globulin Ratio 0.6 % 05/24/21 04:11 Triglycerides 144 mg/dL (2-149) 05/10/21 04:57 Cholesterol 140 mg/dL (50-199) 05/04/21 07:25 LDL Cholesterol Direct 89 mg/dL (50-130) 05/04/21 07:25 HDL Cholesterol 48 mg/dL (40-59) 05/04/21 07:25 Cholesterol/HDL Ratio 2.91 % 05/04/21 07:25 Procalcitonin 0.63 ng/mL (<0.15) 05/09/21 15:53 Urine Color Yellow (Yellow) 05/26/21 09:50 Urine Turbidity Turbid (Clear) 05/26/21 09:50 Urine pH 5.0 (5.0-7.0) 05/26/21 09:50 Ur Specific [place] 1.014 (1.003-1.030) 05/26/21 09:50 Urine Protein 30 mg/dl mg/dL (Negative) 05/26/21 09:50 Urine Glucose (UA) Neg mg/dL (Negative) 05/26/21 09:50 Urine Ketones Neg mg/dL (Negative) 05/26/21 09:50 Urine Blood Sm (Negative) 05/26/21 09:50 Urine Nitrite Neg (Negative) 05/26/21 09:50 Urine Bilirubin Neg (Negative) 05/26/21 09:50 Urine Urobilinogen < 2.0 mg/dL (<2.0) 05/26/21 09:50 Ur Leukocyte Esterase Tr (Negative) 05/26/21 09:50 Urine WBC (Auto) 38.0 /HPF (0.0-6.0) H 05/26/21 09:50 Urine RBC (Auto) 5.0 /HPF (0.0-6.0) 05/26/21 09:50 U Epithel Cells (Auto) 1.0 /HPF (0-13.0) 05/23/21 16:30 Urine Bacteria (Auto) 1+ /HPF (Negative) 05/23/21 16:30 Uric Acid Crystals Few 05/09/21 00:40 Triple Phos Crystals 2+ 05/09/21 13:22 Amorphous Crystals 3+ 05/26/21 09:50 Granular Casts 20 /LPF 05/26/21 09:50 Urine Mucus Few /HPF 05/23/21 16:30 Urine Creatinine 100.1 mg/dL (0.1-20.0) H 05/23/21 16:30 Protein/Creatinin Ratio 0.42 05/10/21 11:03 Urine Sodium 25 mmol/L 05/23/21 16:30 Fraction Sodium Excret 0.3 05/23/21 16:30 Urine Total Protein 42 mg/dL (5-11.8) H 05/10/21 11:03 Urine Opiates Screen Negative 05/04/21 Unknown Urine Methadone Screen Negative 05/04/21 Unknown Ur Barbiturates Screen Negative 05/04/21 Unknown Ur Phencyclidine Scrn Negative 05/04/21 Unknown Ur Amphetamines Screen Positive 05/04/21 Unknown U Benzodiazepines Scrn Negative 05/04/21 Unknown Urine Cocaine Screen Negative 05/04/21 Unknown U Marijuana (THC) Screen Negative 05/04/21 Unknown Drugs of Abuse Note Disclamer 05/04/21 Unknown Immunofix Electrophor see below 05/05/21 03:40 AUDRA Screen Negative (Negative) 05/05/21 03:40 Proteinase 3 (PR3) Ab <1.0 AI (<1.0) 05/05/21 03:40 Myeloperoxidase Ab <1.0 AI (<1.0) 05/05/21 03:40 Complement C3 72 mg/dL (82-185) L 05/05/21 03:40 Complement C4 17 mg/dL (15-53) 05/05/21 03:40 Coronavirus (PCR) Positive (Negative) A 05/05/21 08:30 Hepatitis A IgM Ab Non-reactive (NonReactive) 05/05/21 03:40 Hep Bs Antigen Non-reactive (Negative) 05/05/21 03:40 Hep B Core IgM Ab Non-reactive (NonReactive) 05/05/21 03:40 Hepatitis C Antibody Reactive (NonReactive) A 05/05/21 03:40 Blood Type O POSITIVE 05/23/21 07:12 Antibody Screen Negative 05/23/21 07:12 Crossmatch See Detail 05/23/21 07:12 Microbiology: Microbiology 05/21/21 03:12 Peripheral/Venous Blood Culture - Final NO GROWTH AFTER 5 DAYS 05/21/21 02:22 Peripheral/Venous Blood Culture - Final NO GROWTH AFTER 5 DAYS Merino/IV: Voiding Method Indwelling Catheter Active Medications - Current Medications Current Medications: Generic Name Dose Route Start Last Admin Trade Name Freq PRN Reason Stop Dose Admin Acetaminophen 650 mg 05/04/21 12:34 05/26/21 07:43 Acetaminophen 325 Mg Tab PO 650 mg Q4H PRN Administration Pain MILD(1-3)/Fever >100.5/MARIA Acetaminophen 650 mg 05/07/21 16:00 05/11/21 16:25 Acetaminophen 650 Mg Rect Supp AR 650 mg Q4H PRN Administration Pain, Mild (1-3) Atorvastatin Calcium 40 mg 05/09/21 22:00 05/26/21 03:30 Atorvastatin 40 Mg Tab FEEDTUBE 40 mg QHS RISHI Administration Chlordiazepoxide HCl 50 mg 05/24/21 20:00 05/26/21 13:31 Chlordiazepoxide 25 Mg Cap PO 05/27/21 19:59 50 mg TID RISHI Administration Chlordiazepoxide HCl 25 mg 05/27/21 20:00 Chlordiazepoxide 25 Mg Cap PO 05/30/21 19:59 TID RISHI Dextrose 0 ml 05/09/21 10:49 05/14/21 06:55 Dextrose 10% *Hypoglycemia IV 250 ml PRN PRN Administration Hypoglycemia Fentanyl 50 mcg 05/23/21 15:00 Fentanyl 100 Mcg/2 Ml Inj IV Q10MIN PRN ANALGESIA Haloperidol Lactate 5 mg 05/09/21 18:32 05/18/21 19:52 Haloperidol Lactate 5 Mg/1 Ml Inj IV 5 mg Q6H PRN Administration Agitation Hydralazine HCl 50 mg 05/04/21 14:00 05/26/21 13:31 Hydralazine 25 Mg Tab PO 50 mg Q8HR RISHI Administration Hydrophilic Ointment 1 applic 05/05/21 15:21 Lip Therapy Vaseline TP Q2HR PRN Dry Lips Sodium Chloride 1,000 mls @ 75 mls/hr 05/23/21 11:00 05/26/21 03:28 Nacl 0.45% 1000 Ml IV 75 mls/hr DIRECT RISHI Administration Fentanyl Citrate 2,000 mcg in 100 mls @ 4.082 mls/hr 05/23/21 15:00 Fentanyl Drip Premix IV TITR RISHI Protocol 1 MCG/KG/HR Ertapenem 1 gm/ Sodium 50 mls @ 100 mls/hr 05/26/21 14:00 05/26/21 13:38 Chloride IV 05/29/21 10:29 100 mls/hr QDAY RISHI Administration Insulin Human Lispro 0 unit 05/10/21 09:40 05/12/21 16:49 Insulin Lispro 100 Unit/Ml SUB-Q 2 unit Q6HR PRN Administration Hyperglycemia Protocol Labetalol HCl 10 mg 05/15/21 10:24 05/25/21 08:15 Labetalol 20 Mg/4 Ml Inj IV 10 mg Q4H PRN Administration sbp> 160. Lansoprazole 30 mg 05/26/21 10:00 05/26/21 09:42 Lansoprazole 30 Mg Solutab FEEDTUBE 30 mg BID RISHI Administration Metoprolol Tartrate 50 mg 05/26/21 08:00 05/26/21 13:33 Metoprolol Tartrate 25 Mg Tab FEEDTUBE 50 mg TID RISHI Administration Multi-Ingred Cream/Lotion/Oil/Oint 1 applic 05/05/21 15:21 Mineral Oil/Petrolatum, White Ophth Oint 3.5 Gm OU Q4HR PRN Dry Eye(s) Ondansetron HCl 4 mg 05/04/21 12:34 05/04/21 21:51 Ondansetron 4 Mg/2 Ml Inj IV 4 mg Q8H PRN Administration Nausea And Vomiting Polyethylene Glycol 17 gm 05/26/21 22:00 Polyethylene Glycol 3350 17 Gm Powder PO QHS RISHI Quetiapine Fumarate 100 mg 05/25/21 22:00 05/26/21 09:22 Quetiapine 100 Mg Tab PO 100 mg BID RISHI Administration Senna/Docusate Sodium 1 tab 05/05/21 22:00 05/26/21 09:21 Sennosides/Docusate Sodium 8.6/50 Mg Tab FEEDTUBE 1 tab BID RISHI Administration Sodium Chloride 10 ml 05/04/21 22:00 05/26/21 09:23 Sodium Chloride 0.9% 10 Ml Flush Syringe IV 10 ml BID RISHI Administration Sodium Chloride 10 ml 05/04/21 12:34 05/06/21 13:59 Sodium Chloride 0.9% 10 Ml Flush Syringe IV 10 ml PRN PRN Administration LINE FLUSH Sodium Chloride 10 ml 05/09/21 09:46 Sodium Chloride 0.9% 50 Ml Ivpb IV PRN PRN FLUSH Nutrition/Malnutrition Assess - Dietary Evaluation Nutrition/Malnutrition Findings: Nutrition Notes Start: 05/05/21 16:15 Freq: Status: Active Protocol: Document 05/23/21 11:25 ROSAURA (Rec: 05/23/21 11:34 ROSAURA [id number]) Nutrition Notes Initial or Follow up Reassessment Current Diagnosis Acute Kidney Injury, Hypertension,Heart Failure, Respiratory Failure Other Pertinent Diagnosis Severe COVID-19 pneu, metabolic encephalopathy, polysubstance dependence Current Diet TF - Nepro at 60ml/hr Labs/Tests BUN 62 Cr 2.8 K 4.4 (was 5.7 and 5.2 on 05/21 and 05/22, respectively) Pertinent Medications reviewed Height 5 ft 7 in Weight 81.647 kg [place] Body Weight (kg) 67.27 BMI 28.1 Weight Status Overweight Subjective/Other Information PACKAGE WINDER unable to arouse pt on 05/21 and 05/22 for evaluation. Vault Teller changed TF formula sec to worsening renal function. Pt on BiPap support. Percent of energy/protein needs met: 135% energy 100% pro Burn Absent Trauma Absent #1 Nutrition Diagnosis Inadequate oral intake Diagnosis Progress(for reassessment Continues documentation) Is patient on ventilator? No Is Patient Ambulatory and/or Out of Bed No REE-([facility]-confined to bed) [phone] Calculation Used for Recommendations [facility] Additional Notes Pro needs 1.2-2g/k-163g/ day Fluid needs 1ml/kcal Nutrition Intervention Nutrition Support: Decrease Nepro rate to 45ml/hr , as current rate provides excess kcal. Provide 200ml water flush q4h. Kcal 1,944 Protein (gm) 87 Carbohydrates (gm) 174 Fat (gm) 104 Fluid (mL) 785 Fiber (gm) 14 Goal #1 TF tolerance Goal #2 TF to meet at least 75% energy and pro needs Follow-Up By: 05/27/21 Additional Comments F/U: TF tolerance/rate decrease, PACKAGE WINDER evaluation, renal function, resp status
[2021-05-26] MEDS: POLYETHYLENE GLYCOL 3350 17 GM POWDER PO SCH (21:19)
[2021-05-27] MEDS: SODIUM CHLORIDE 0.45% 1000 ML 1,000 ML IV SCH (06:19)
[2021-05-27] MEDS: hydrALAZINE 25 MG TAB PO SCH ×3 (08:12→22:09)
[2021-05-27] MEDS: chlordiazePOXIDE 25 MG CAP PO SCH ×3 (08:12→19:58)
[2021-05-27] MEDS: METOPROLOL TARTRATE 25 MG TAB FEEDTUBE SCH ×3 (08:12→19:58)
[2021-05-27 08:18] LABS: Hematocrit 26.1 % (35.5-45.6); Hemoglobin 8.8 gm/dl (11.8-15.2); Mean Corpuscular HGB Conc 34 % (32-34); Mean Corpuscular Volume 91 fl (84-94); Platelet Count 367 K/mm3 (140-440); Red Blood Count 2.86 M/mm3 (3.65-5.03); Red Cell Distribution Width 16.1 % (13.2-15.2)
[2021-05-27 08:34] LABS: Calcium 8.1 mg/dL (8.4-10.2)
[2021-05-27] MEDS: ACETAMINOPHEN 325 MG TAB PO PRN (08:59)
[2021-05-27] MEDS: QUEtiapine 100 MG TAB PO SCH ×2 (09:00→22:12)
[2021-05-27] MEDS: SENNOSIDES/DOCUSATE SODIUM 8.6/50 MG TAB FEEDTUBE SCH ×2 (09:00→22:11)
[2021-05-27] MEDS: LANSOPRAZOLE 30 MG SOLUTAB FEEDTUBE SCH ×2 (09:00→22:11)
[2021-05-27] MEDS: ERTAPENEM 1 GM in SODIUM CHLORIDE 0.9% 50 ML IV SCH (09:01)
[2021-05-27 09:41] LABS: ABG Base Excess 1.7 mmol/L (-2.0-3.0); ABG HCO3 25.9 mmol/L (20.0-26.0); ABG Methemoglobin 0.7 % (0.0-1.5); ABG Oxygen Saturation 98.3 % (95.0-99.0); ABG PCO2 38.8 mm Hg; ABG PH 7.443 pH Units (7.350-7.450); ABG PO2 115.2 mm Hg (80.0-90.0)
[2021-05-27] MEDS ORDERED: VANCOMYCIN 1,250 MG in SODIUM CHLORIDE 0.9% 500 ML 500 ML IV ONE (10:30)
--- NOTE | 2021-05-27 10:30 | Progress Note ---
Assessment and Plan Cultures: Blood culture 05/07/2021 no growth so far Blood culture 05/10/2021 no growth so far Sputum culture 05/16/2021 Enterobacter 05/23/2021 tracheal aspirate culture: Enterobacter 05/26/2021 blood culture: In process A/P: 56 yo M PMHx smoking, A. fib, HTN, medication non-compliance admitted with #Severe COVID-19 pneumonia: Patient presented with a week of symptoms, chest x- ray with diffuse bilateral infiltrates, admission O2 sats decreased on room air. Inflammatory markers elevated. Was not a candidate for Remdesivir. Completed steroids. #Acute hypoxemic respiratory failure: secondary to COVID-19 infection. On the vent. #VAP: Cultures with Enterobacter. #YE: Renally dose medications. #Acute anemia #Urinary tox screen positive for amphetamines Recommendations: -persistently febrile, added IV Vancomycin, stop if blood cultures are negative at 48 hours -continue IV ertapenem 1 gm daily, D5 of 7 to 10 days -monitor CBC with differential, CRP. Procal not helpful given renal insufficiency Rhonda Mooney MD, FACP, [facility] ([facility]) O: [phone] F: [phone] Subjective Date of service: 05/27/21 Principal diagnosis: AHRF; COVID-19 infection; NSTEMI; YE; HFrEF (35-40%); Polysubstance abuse Interval history: Remains on the vent. Still febrile. Objective - Exam Narrative Exam: Physical Exam: Constitutional: sedated, intubated, on the vent Head, Ears, Nose: Normocephalic, atraumatic. External ears, nose normal Eyes: Conjunctivae/corneas clear. No icterus. No ptosis. Neck: intubated Oral: intubated Cardiovascular: S1, S2 + Respiratory: AE fair bilaterally and equal GI: Soft, bowel sounds + Musculoskeletal: No pedal edema, no cyanosis. Skin: No rash or abscess Hem/Lymphatic: No palpable cervical or supraclavicular nodes. No lymphangitis Psych: no agitation Neurological: sedated, intubated, on the vent, exam limited - Constitutional Vitals: Vital Signs Temp Pulse Resp BP Pulse Ox 100.6 F H 69 22 98/61 98 05/27/21 03:36 05/27/21 10:00 05/27/21 10:00 05/27/21 10:00 05/27/21 10:00 Temperature -Last 24 Hours Temperature 100.6 F Temperature 100.4 F Temperature 100.8 F Temperature 99 F Temperature 98.4 F - Labs CBC & Chem 7: 05/27/21 07:47 05/27/21 07:47 Labs: Abnormal lab results 05/23/21 05/26/21 05/26/21 Range/Units 18:54 09:50 11:20 WBC (4.5-11.0) K/mm3 RBC (3.65-5.03) M/mm3 Hgb (11.8-15.2) gm/dl Hct (35.5-45.6) % RDW (13.2-15.2) % Haptoglobin 254 H (43-212) mg/dL ABG pO2 (80.0-90.0) mm Hg ABG Hemoglobin (14.0-18.0) gm/dl Chloride (98-107) mmol/L BUN (9-20) mg/dL Creatinine (0.8-1.3) mg/dL Glucose (75-100) mg/dL POC Glucose 109 H (70-105) mg/dL Calcium (8.4-10.2) mg/dL Urine WBC (Auto) 38.0 H (0.0-6.0) /HPF 05/26/21 05/27/21 05/27/21 Range/Units 18:24 00:24 05:12 WBC (4.5-11.0) K/mm3 RBC (3.65-5.03) M/mm3 Hgb (11.8-15.2) gm/dl Hct (35.5-45.6) % RDW (13.2-15.2) % Haptoglobin (43-212) mg/dL ABG pO2 (80.0-90.0) mm Hg ABG Hemoglobin (14.0-18.0) gm/dl Chloride (98-107) mmol/L BUN (9-20) mg/dL Creatinine (0.8-1.3) mg/dL Glucose (75-100) mg/dL POC Glucose 116 H 115 H 108 H (70-105) mg/dL Calcium (8.4-10.2) mg/dL Urine WBC (Auto) (0.0-6.0) /HPF 05/27/21 05/27/21 05/27/21 Range/Units 07:47 07:47 09:20 WBC 15.5 H (4.5-11.0) K/mm3 RBC 2.86 L (3.65-5.03) M/mm3 Hgb 8.8 L (11.8-15.2) gm/dl Hct 26.1 L (35.5-45.6) % RDW 16.1 H (13.2-15.2) % Haptoglobin (43-212) mg/dL ABG pO2 115.2 H (80.0-90.0) mm Hg ABG Hemoglobin 9.2 L (14.0-18.0) gm/dl Chloride 107.3 H (98-107) mmol/L BUN 56 H (9-20) mg/dL Creatinine 1.8 H (0.8-1.3) mg/dL Glucose 108 H (75-100) mg/dL POC Glucose (70-105) mg/dL Calcium 8.1 L (8.4-10.2) mg/dL Urine WBC (Auto) (0.0-6.0) /HPF
--- NOTE | 2021-05-27 11:53 | Progress Note ---
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 He is also currently nonoliguric. * Hypernatremia is much improved. * His urine shows 2+ dipstick protein and 3 RBCs per high-power field. Fractional excretion of sodium is 0.3%. * Hyperkalemia has been corrected. Continue to hold diuretics. * Renal ultrasound reviewed - will need follow up CT once stable * Continue antiHTN medications * Cardiology, ICU input noted * Dose medications for renal function * Avoid potential nephrotoxins * Strict I/O * No indication for renal replacement therapy at this time * Discontinue IV fluid for now Subjective Date of service: 05/27/21 Principal diagnosis: AHRF; COVID-19 infection; NSTEMI; YE; HFrEF (35-40%); Polysubstance abuse Interval history: Patient remains in the ICU. Currently on the ventilator. On 30% FiO2. Oxygen saturation is 98%. IV fluid half-normal saline at 75 cc an hour infusing. Objective - Vital Signs Vital signs: Vital Signs - 12hr 05/26/21 05/27/21 05/27/21 23:58 00:00 00:47 Temperature 100.4 F H Pulse Rate 83 84 Pulse Rate [ 84 From Monitor] Respiratory 24 Rate Blood Pressure 110/78 110/78 O2 Sat by Pulse 98 98 Oximetry 05/27/21 05/27/21 05/27/21 01:00 02:00 03:00 Temperature Pulse Rate 85 87 87 Pulse Rate [ From Monitor] Respiratory 30 H 29 H 28 H Rate Blood Pressure 130/87 126/87 118/79 O2 Sat by Pulse 98 97 98 Oximetry 05/27/21 05/27/21 05/27/21 03:36 04:00 04:25 Temperature 100.6 F H Pulse Rate 85 85 Pulse Rate [ 84 From Monitor] Respiratory 22 Rate Blood Pressure 126/84 140/92 O2 Sat by Pulse 96 98 Oximetry 05/27/21 05/27/21 05/27/21 05:00 06:00 07:00 Temperature Pulse Rate 84 87 86 Pulse Rate [ From Monitor] Respiratory 21 31 H 24 Rate Blood Pressure 143/89 150/93 149/93 O2 Sat by Pulse 97 98 97 Oximetry 05/27/21 05/27/21 05/27/21 07:46 08:00 08:01 Temperature 100.2 F H Pulse Rate 89 Pulse Rate [ 84 From Monitor] Respiratory 30 H 25 H Rate Blood Pressure 155/92 O2 Sat by Pulse 98 97 Oximetry 05/27/21 05/27/21 05/27/21 08:12 08:50 09:00 Temperature Pulse Rate 88 75 74 Pulse Rate [ From Monitor] Respiratory 30 H Rate Blood Pressure 155/92 140/89 140/89 O2 Sat by Pulse 98 98 Oximetry 05/27/21 10:00 Temperature Pulse Rate 69 Pulse Rate [ From Monitor] Respiratory 22 Rate Blood Pressure 98/61 O2 Sat by Pulse 98 Oximetry - General Appearance General appearance: well-developed, well-nourished, appears stated age, intubated EENT: PERRL, mucous membranes moist Neck: no JVD, no thyromegaly, no carotid bruit, supple Respiratory: Present: Clear to Ascultation Cardiology: regular, normal heart rate Gastrointestinal: normal, normoactive bowel sounds Integumentary: other (No edema) - Lab 05/27/21 07:47 05/27/21 07:47 Most recent lab results ABG pH 7.443 pH Units (7.350-7.450) 05/27/21 09:20 ABG pCO2 38.8 mm Hg 05/27/21 09:20 ABG pO2 115.2 mm Hg (80.0-90.0) H 05/27/21 09:20 ABG HCO3 25.9 mmol/L (20.0-26.0) 05/27/21 09:20 ABG O2 Saturation 98.3 % (95.0-99.0) 05/27/21 09:20 Calcium 8.1 mg/dL (8.4-10.2) L 05/27/21 07:47 Phosphorus 3.70 mg/dL (2.5-4.5) D 05/25/21 04:25 Magnesium 2.30 mg/dL (1.7-2.3) 05/25/21 04:25 Urine Creatinine 100.1 mg/dL (0.1-20.0) H 05/23/21 16:30 Urine Sodium 25 mmol/L 05/23/21 16:30 Urine Total Protein 42 mg/dL (5-11.8) H 05/10/21 11:03 Medications & Allergies - Medications Allergies/Adverse Reactions: Allergies No Known Allergies Allergy (Verified 05/08/21 07:47) Home Medications: Home Medications Medication Instructions Recorded Confirmed Last Taken Type Cefpodoxime Proxetil 200 mg PO Q12H #10 tablet 09/11/20 05/19/21 Unknown Rx Famotidine [Pepcid] 20 mg PO BID #30 tablet 04/13/21 05/19/21 Unknown Rx Losartan [Cozaar] 100 mg PO QDAY #60 tablet 04/13/21 05/19/21 Unknown Rx Metoprolol Xl [Metoprolol 25 mg PO QDAY #30 tablet 04/13/21 05/19/21 Unknown Rx SUCCINATE ER TAB] NIFEdipine XL [Procardia Xl] 60 mg PO Q12HR #60 tablet 04/13/21 05/19/21 Unknown Rx hydrALAZINE [Apresoline TAB] 50 mg PO Q8HR #180 tablet 04/13/21 05/19/21 Unknown Rx Active Medications: Generic Name Dose Route Start Last Admin Trade Name Freq PRN Reason Stop Dose Admin Acetaminophen 650 mg 05/04/21 12:34 05/27/21 08:59 Acetaminophen 325 Mg Tab PO 650 mg Q4H PRN Administration Pain MILD(1-3)/Fever >100.5/MARIA Acetaminophen 650 mg 05/07/21 16:00 05/11/21 16:25 Acetaminophen 650 Mg Rect Supp NC 650 mg Q4H PRN Administration Pain, Mild (1-3) Atorvastatin Calcium 40 mg 05/09/21 22:00 05/26/21 21:18 Atorvastatin 40 Mg Tab FEEDTUBE 40 mg QHS RISHI Administration Chlordiazepoxide HCl 50 mg 05/24/21 20:00 05/27/21 08:12 Chlordiazepoxide 25 Mg Cap PO 05/27/21 19:59 50 mg TID RISHI Administration Chlordiazepoxide HCl 25 mg 05/27/21 20:00 Chlordiazepoxide 25 Mg Cap PO 05/30/21 19:59 TID RISHI Dextrose 0 ml 05/09/21 10:49 05/14/21 06:55 Dextrose 10% *Hypoglycemia IV 250 ml PRN PRN Administration Hypoglycemia Fentanyl 50 mcg 05/23/21 15:00 Fentanyl 100 Mcg/2 Ml Inj IV Q10MIN PRN ANALGESIA Haloperidol Lactate 5 mg 05/09/21 18:32 05/18/21 19:52 Haloperidol Lactate 5 Mg/1 Ml Inj IV 5 mg Q6H PRN Administration Agitation Hydralazine HCl 50 mg 05/04/21 14:00 05/27/21 08:12 Hydralazine 25 Mg Tab PO 50 mg Q8HR RISHI Administration Hydrophilic Ointment 1 applic 05/05/21 15:21 Lip Therapy Vaseline TP Q2HR PRN Dry Lips Sodium Chloride 1,000 mls @ 75 mls/hr 05/23/21 11:00 05/27/21 06:19 Nacl 0.45% 1000 Ml IV 75 mls/hr DIRECT RISHI Administration Fentanyl Citrate 2,000 mcg in 100 mls @ 4.082 mls/hr 05/23/21 15:00 Fentanyl Drip Premix IV TITR RISHI Protocol 1 MCG/KG/HR Ertapenem 1 gm/ Sodium 50 mls @ 100 mls/hr 05/26/21 14:00 05/27/21 09:01 Chloride IV 05/29/21 10:29 100 mls/hr QDAY RISHI Administration Vancomycin HCl 1,250 mg/ 525 mls @ 333 mls/hr 05/27/21 10:30 Sodium Chloride IV 05/27/21 12:00 ONCE ONE Protocol Insulin Human Lispro 0 unit 05/10/21 09:40 05/12/21 16:49 Insulin Lispro 100 Unit/Ml SUB-Q 2 unit Q6HR PRN Administration Hyperglycemia Protocol Labetalol HCl 10 mg 05/15/21 10:24 05/25/21 08:15 Labetalol 20 Mg/4 Ml Inj IV 10 mg Q4H PRN Administration sbp> 160. Lansoprazole 30 mg 05/26/21 10:00 05/27/21 09:00 Lansoprazole 30 Mg Solutab FEEDTUBE 30 mg BID RISHI Administration Metoprolol Tartrate 50 mg 05/26/21 08:00 05/27/21 08:12 Metoprolol Tartrate 25 Mg Tab FEEDTUBE 50 mg TID RISHI Administration Multi-Ingred Cream/Lotion/Oil/Oint 1 applic 05/05/21 15:21 Mineral Oil/Petrolatum, White Ophth Oint 3.5 Gm OU Q4HR PRN Dry Eye(s) Ondansetron HCl 4 mg 05/04/21 12:34 05/04/21 21:51 Ondansetron 4 Mg/2 Ml Inj IV 4 mg Q8H PRN Administration Nausea And Vomiting Polyethylene Glycol 17 gm 05/26/21 22:00 05/26/21 21:19 Polyethylene Glycol 3350 17 Gm Powder PO Not Given QHS RISHI Quetiapine Fumarate 100 mg 05/25/21 22:00 05/27/21 09:00 Quetiapine 100 Mg Tab PO 100 mg BID RISHI Administration Senna/Docusate Sodium 1 tab 05/05/21 22:00 05/27/21 09:00 Sennosides/Docusate Sodium 8.6/50 Mg Tab FEEDTUBE Not Given BID RISHI Sodium Chloride 10 ml 05/04/21 22:00 05/26/21 21:38 Sodium Chloride 0.9% 10 Ml Flush Syringe IV 10 ml BID RISHI Administration Sodium Chloride 10 ml 05/04/21 12:34 05/06/21 13:59 Sodium Chloride 0.9% 10 Ml Flush Syringe IV 10 ml PRN PRN Administration LINE FLUSH Sodium Chloride 10 ml 05/09/21 09:46 Sodium Chloride 0.9% 50 Ml Ivpb IV PRN PRN FLUSH
[2021-05-27] MEDS ORDERED: VANCOMYCIN PHARMACY TO DOSE IV SCH (12:00)
--- NOTE | 2021-05-27 12:14 | Progress Note ---
Assessment and Plan Acute hypoxic resp failure on MVS COVID positive NSTEMI Acute kidney injury Cardiomyopathy EF 35-40% History of hepatitis C Elevated D-dimer. Low probability for PE seen on VQ scan Tobacco abuse Polysubstance abusepatient with positive methamphetamines and has a history of cocaine use Anemia - awaiting trach & PEG - anticoagulation per vascular team - continue care as below otherwise; - daily SAT and SBT assessment as tolerated - continue to wean supplemental oxygen for target O2 sat's > 90% acutely - VAP bundle addressed - continue lung protective strategies - continue bronchodilators with pulmonary hygiene per RT - wean per pulmonary driven protocols otherwise - avoid nephrotoxins, renally dose all medications - continue accuchecks with glycemic control per SSI (While critically ill target blood glucose of 140-180 mg/dL; avoid hypoglycemia) - sedation prn for target RASS 0 to -1 - continue to avoid benzodiazepine's, reduce the possibility of delirium - prn analgesia per CPOT score - Maintenance of sleep-wake cycle, avoid delirium - continue enteral nutritional support at goal rate as tolerated - G.I. & VTE prophylaxis with pantoprazole and Heparin - PT/OT/ROM exercises - continue mobility protocols for pressure ulcer prophylaxis - Monitor hemodynamics closely - continue other care per attending / other consultants - discharge planning ongoing concurrently COVID SPECIFIC INTERVENTIONS - Appears to have incidental COVID infection- Remdesivir not administered secondary to renal failure - continue systemic steroids for severe COVID-19 infection empirically (Dexamethasone) - follow repeat COVID tests results - zinc and vitamin C supplementation - Monitor inflammatory markers per facility protocol - ferritin, Ddimer, CRP - therapeutic anticoagulation per system Protocol based on d-dimer and clinical considerations (on therapeutic heparin for NSTEMI) - Continue contact and airborne isolation .... Re-evaluate in am & prn CONDITION: CRITICAL PROGNOSIS: GUARDED CODE STATUS: FULL CODE The high probability of a clinically significant, sudden or life-threatening deterioration of the [respiratory, cardiovascular & neurologic] system(s) required my full and direct attention, intervention and personal management. The aggregate critical care time was [34] minutes without overlap. Time includes spent on; [x] Data Review and interpretation [x] Patient assessment and monitoring of vital signs [x] Documentation [x] Medication orders and management Subjective Date of service: 05/27/21 Principal diagnosis: AHRF; COVID-19 infection; NSTEMI; YE; HFrEF (35-40%); Polysubstance abuse Interval history: Patient is seen today for: Acute hypoxemic Resp failure; COVID-19 infection; NSTEMI; YE; HFrEF (35-40%); Polysubstance abuse; Anemia Seen and examined at bedside; 24hour events reviewed; nursing and respiratory care staff consulted; no adverse overnight events reported to me; resting in bed; remains on MVS; AMS is persistent; failed bedside SBT quickly with in creased work of breathing Objective Vital Signs - 12hr 05/27/21 05/27/21 05/27/21 00:47 01:00 02:00 Temperature 100.4 F H Pulse Rate 85 87 Pulse Rate [ From Monitor] Respiratory 30 H 29 H Rate Blood Pressure 130/87 126/87 O2 Sat by Pulse 98 97 Oximetry 05/27/21 05/27/21 05/27/21 03:00 03:36 04:00 Temperature 100.6 F H Pulse Rate 87 85 Pulse Rate [ 84 From Monitor] Respiratory 28 H 22 Rate Blood Pressure 118/79 126/84 O2 Sat by Pulse 98 96 Oximetry 05/27/21 05/27/21 05/27/21 04:25 05:00 06:00 Temperature Pulse Rate 85 84 87 Pulse Rate [ From Monitor] Respiratory 21 31 H Rate Blood Pressure 140/92 143/89 150/93 O2 Sat by Pulse 98 97 98 Oximetry 05/27/21 05/27/21 05/27/21 07:00 07:46 08:00 Temperature 100.2 F H Pulse Rate 86 Pulse Rate [ 84 From Monitor] Respiratory 24 30 H Rate Blood Pressure 149/93 O2 Sat by Pulse 97 98 Oximetry 05/27/21 05/27/21 05/27/21 08:01 08:12 08:50 Temperature Pulse Rate 89 88 75 Pulse Rate [ From Monitor] Respiratory 25 H Rate Blood Pressure 155/92 155/92 140/89 O2 Sat by Pulse 97 98 Oximetry 05/27/21 05/27/21 09:00 10:00 Temperature Pulse Rate 74 69 Pulse Rate [ From Monitor] Respiratory 30 H 22 Rate Blood Pressure 140/89 98/61 O2 Sat by Pulse 98 98 Oximetry Constitutional: appears uncomfortable, other (middle aged male with mildly increased respiratory effort at rest) Eyes: non-icteric ENT: oropharynx moist, other (ETT 24 cm ELIZABET) Neck: supple, no lymphadenopathy, no JVD Effort: mildly labored Ascultation: Bilateral: diminished breath sounds, rhonchi Percussion: Bilateral: not dull Cardiovascular: regular rate and rhythm, other (S1,S2) Gastrointestinal: normoactive bowel sounds, soft, non-tender, non-distended Integumentary: normal Extremities: no cyanosis, no edema, pulses normal Neurologic: non-focal exam (grossly), pupils equal and round, unable to assess (sedated) Psychiatric: other CBC and BMP: 05/29/21 11:16 05/29/21 11:16 ABG, PT/INR, D-dimer: ABG ABG pH 7.443 pH Units (7.350-7.450) 05/27/21 09:20 ABG pCO2 38.8 mm Hg 05/27/21 09:20 ABG pO2 115.2 mm Hg (80.0-90.0) H 05/27/21 09:20 ABG O2 Saturation 98.3 % (95.0-99.0) 05/27/21 09:20 PT/INR, D-dimer PT 14.9 Sec. (12.2-14.9) 05/25/21 04:25 INR 1.05 (0.87-1.13) 05/25/21 04:25 D-Dimer 2730.61 ng/mlDDU (0-234) H 05/12/21 07:19 Abnormal lab findings: Abnormal Labs 05/04/21 05/04/21 05/04/21 07:25 07:25 07:25 WBC 12.9 H RBC 3.04 L Hgb 9.5 L Hct 28.4 L MCV MCHC RDW 15.4 H Lymph % (Auto) 11.4 L [place] % (Auto) 10.1 H Lymph # (Auto) [place] # (Auto) 1.3 H Seg Neutrophils % 78.0 H Seg Neuts % (Manual) Lymphocytes % (Manual) Monocytes % (Manual) Seg Neutrophils # 10.0 H Seg Neutrophils # Man Lymphocytes # (Manual) Monocytes # (Manual) Haptoglobin PT 15.1 H APTT D-Dimer Heparin Anti-Xa Level ABG pH ABG pO2 ABG HCO3 ABG O2 Saturation ABG Base Excess ABG Hemoglobin Oxyhemoglobin Sodium 135 L Potassium Chloride Carbon Dioxide BUN 65 H Creatinine 3.4 H Glucose 118 H POC Glucose Calcium Phosphorus Magnesium Iron TIBC Ferritin Total Bilirubin 1.50 H AST 519 H ALT 475 H Lactate Dehydrogenase Total Creatine Kinase Troponin T 1.300 H* C-Reactive Protein Albumin Urine WBC (Auto) Urine Creatinine Urine Total Protein Complement C3 Coronavirus (PCR) Hepatitis C Antibody Crossmatch 05/04/21 05/04/21 05/04/21 07:25 08:42 08:42 WBC RBC Hgb Hct MCV MCHC RDW Lymph % (Auto) [place] % (Auto) Lymph # (Auto) [place] # (Auto) Seg Neutrophils % Seg Neuts % (Manual) Lymphocytes % (Manual) Monocytes % (Manual) Seg Neutrophils # Seg Neutrophils # Man Lymphocytes # (Manual) Monocytes # (Manual) Haptoglobin PT APTT D-Dimer 579.49 H Heparin Anti-Xa Level ABG pH ABG pO2 ABG HCO3 ABG O2 Saturation ABG Base Excess ABG Hemoglobin Oxyhemoglobin Sodium Potassium Chloride Carbon Dioxide BUN Creatinine Glucose POC Glucose Calcium Phosphorus Magnesium Iron TIBC Ferritin Total Bilirubin AST ALT Lactate Dehydrogenase Total Creatine Kinase 406 H Troponin T 1.230 H* C-Reactive Protein Albumin Urine WBC (Auto) Urine Creatinine Urine Total Protein Complement C3 Coronavirus (PCR) Hepatitis C Antibody Crossmatch 05/04/21 05/04/21 05/04/21 10:13 13:34 18:14 WBC RBC Hgb 8.8 L Hct 26.6 L MCV MCHC RDW Lymph % (Auto) [place] % (Auto) Lymph # (Auto) [place] # (Auto) Seg Neutrophils % Seg Neuts % (Manual) Lymphocytes % (Manual) Monocytes % (Manual) Seg Neutrophils # Seg Neutrophils # Man Lymphocytes # (Manual) Monocytes # (Manual) Haptoglobin PT APTT D-Dimer Heparin Anti-Xa Level < 0.10 L ABG pH ABG pO2 ABG HCO3 ABG O2 Saturation ABG Base Excess ABG Hemoglobin Oxyhemoglobin Sodium Potassium Chloride Carbon Dioxide BUN Creatinine Glucose POC Glucose Calcium Phosphorus Magnesium Iron TIBC Ferritin Total Bilirubin AST ALT Lactate Dehydrogenase Total Creatine Kinase Troponin T 1.400 H* C-Reactive Protein Albumin Urine WBC (Auto) Urine Creatinine Urine Total Protein Complement C3 Coronavirus (PCR) Hepatitis C Antibody Crossmatch 05/05/21 05/05/21 05/05/21 03:40 03:40 03:40 WBC RBC Hgb Hct MCV MCHC RDW Lymph % (Auto) [place] % (Auto) Lymph # (Auto) [place] # (Auto) Seg Neutrophils % Seg Neuts % (Manual) Lymphocytes % (Manual) Monocytes % (Manual) Seg Neutrophils # Seg Neutrophils # Man Lymphocytes # (Manual) Monocytes # (Manual) Haptoglobin PT APTT D-Dimer Heparin Anti-Xa Level 0.11 L ABG pH ABG pO2 ABG HCO3 ABG O2 Saturation ABG Base Excess ABG Hemoglobin Oxyhemoglobin Sodium Potassium 3.3 L Chloride Carbon Dioxide BUN 59 H Creatinine 2.6 H Glucose 139 H POC Glucose Calcium Phosphorus Magnesium Iron TIBC Ferritin Total Bilirubin AST ALT Lactate Dehydrogenase Total Creatine Kinase Troponin T C-Reactive Protein Albumin Urine WBC (Auto) Urine Creatinine Urine Total Protein Complement C3 Coronavirus (PCR) Hepatitis C Antibody Reactive A Crossmatch 05/05/21 05/05/21 05/05/21 03:40 08:30 09:57 WBC RBC Hgb Hct MCV MCHC RDW Lymph % (Auto) [place] % (Auto) Lymph # (Auto) [place] # (Auto) Seg Neutrophils % Seg Neuts % (Manual) Lymphocytes % (Manual) Monocytes % (Manual) Seg Neutrophils # Seg Neutrophils # Man Lymphocytes # (Manual) Monocytes # (Manual) Haptoglobin PT APTT D-Dimer Heparin Anti-Xa Level ABG pH ABG pO2 ABG HCO3 ABG O2 Saturation ABG Base Excess ABG Hemoglobin Oxyhemoglobin Sodium Potassium Chloride Carbon Dioxide BUN Creatinine Glucose POC Glucose Calcium Phosphorus Magnesium Iron TIBC Ferritin Total Bilirubin AST ALT Lactate Dehydrogenase Total Creatine Kinase Troponin T C-Reactive Protein Albumin Urine WBC (Auto) Urine Creatinine 100.8 H Urine Total Protein Complement C3 72 L Coronavirus (PCR) Positive A Hepatitis C Antibody Crossmatch 05/05/21 05/05/21 05/05/21 11:28 17:00 19:51 WBC RBC Hgb Hct MCV MCHC RDW Lymph % (Auto) [place] % (Auto) Lymph # (Auto) [place] # (Auto) Seg Neutrophils % Seg Neuts % (Manual) Lymphocytes % (Manual) Monocytes % (Manual) Seg Neutrophils # Seg Neutrophils # Man Lymphocytes # (Manual) Monocytes # (Manual) Haptoglobin PT APTT D-Dimer Heparin Anti-Xa Level 0.10 L 0.22 L ABG pH 7.304 L ABG pO2 140.8 H ABG HCO3 ABG O2 Saturation ABG Base Excess -2.1 L ABG Hemoglobin 10.2 L Oxyhemoglobin Sodium Potassium Chloride Carbon Dioxide BUN Creatinine Glucose POC Glucose Calcium Phosphorus Magnesium Iron TIBC Ferritin Total Bilirubin AST ALT Lactate Dehydrogenase Total Creatine Kinase Troponin T C-Reactive Protein Albumin Urine WBC (Auto) Urine Creatinine Urine Total Protein Complement C3 Coronavirus (PCR) Hepatitis C Antibody Crossmatch 05/06/21 05/06/21 05/06/21 03:47 06:15 17:53 WBC RBC Hgb 9.0 L Hct 27.8 L MCV MCHC RDW Lymph % (Auto) [place] % (Auto) Lymph # (Auto) [place] # (Auto) Seg Neutrophils % Seg Neuts % (Manual) Lymphocytes % (Manual) Monocytes % (Manual) Seg Neutrophils # Seg Neutrophils # Man Lymphocytes # (Manual) Monocytes # (Manual) Haptoglobin PT APTT D-Dimer Heparin Anti-Xa Level 0.10 L ABG pH ABG pO2 143.5 H ABG HCO3 ABG O2 Saturation ABG Base Excess -2.4 L ABG Hemoglobin 6.9 L Oxyhemoglobin Sodium Potassium Chloride Carbon Dioxide BUN Creatinine Glucose POC Glucose Calcium Phosphorus Magnesium Iron TIBC Ferritin Total Bilirubin AST ALT Lactate Dehydrogenase Total Creatine Kinase Troponin T C-Reactive Protein Albumin Urine WBC (Auto) Urine Creatinine Urine Total Protein Complement C3 Coronavirus (PCR) Hepatitis C Antibody Crossmatch 05/07/21 05/07/21 05/07/21 00:07 03:22 03:45 WBC RBC Hgb Hct MCV MCHC RDW Lymph % (Auto) [place] % (Auto) Lymph # (Auto) [place] # (Auto) Seg Neutrophils % Seg Neuts % (Manual) Lymphocytes % (Manual) Monocytes % (Manual) Seg Neutrophils # Seg Neutrophils # Man Lymphocytes # (Manual) Monocytes # (Manual) Haptoglobin PT APTT D-Dimer Heparin Anti-Xa Level < 0.10 L ABG pH ABG pO2 104.3 H ABG HCO3 ABG O2 Saturation ABG Base Excess -2.6 L ABG Hemoglobin 9.1 L Oxyhemoglobin Sodium Potassium Chloride 107.1 H Carbon Dioxide 20 L BUN 56 H Creatinine 2.9 H Glucose POC Glucose Calcium Phosphorus Magnesium Iron TIBC Ferritin Total Bilirubin AST ALT Lactate Dehydrogenase Total Creatine Kinase Troponin T C-Reactive Protein Albumin Urine WBC (Auto) Urine Creatinine Urine Total Protein Complement C3 Coronavirus (PCR) Hepatitis C Antibody Crossmatch 05/07/21 05/07/21 05/07/21 07:44 16:28 22:41 WBC RBC Hgb Hct MCV MCHC RDW Lymph % (Auto) [place] % (Auto) Lymph # (Auto) [place] # (Auto) Seg Neutrophils % Seg Neuts % (Manual) Lymphocytes % (Manual) Monocytes % (Manual) Seg Neutrophils # Seg Neutrophils # Man Lymphocytes # (Manual) Monocytes # (Manual) Haptoglobin PT APTT D-Dimer Heparin Anti-Xa Level < 0.10 L 0.10 L < 0.10 L ABG pH ABG pO2 ABG HCO3 ABG O2 Saturation ABG Base Excess ABG Hemoglobin Oxyhemoglobin Sodium Potassium Chloride Carbon Dioxide BUN Creatinine Glucose POC Glucose Calcium Phosphorus Magnesium Iron TIBC Ferritin Total Bilirubin AST ALT Lactate Dehydrogenase Total Creatine Kinase Troponin T C-Reactive Protein Albumin Urine WBC (Auto) Urine Creatinine Urine Total Protein Complement C3 Coronavirus (PCR) Hepatitis C Antibody Crossmatch 05/08/21 05/08/21 05/08/21 03:25 04:34 07:30 WBC 12.4 H RBC 3.02 L Hgb 9.5 L Hct 29.2 L MCV 97 H MCHC RDW 16.7 H Lymph % (Auto) 8.1 L [place] % (Auto) 11.0 H Lymph # (Auto) 1.0 L [place] # (Auto) 1.4 H Seg Neutrophils % 80.1 H Seg Neuts % (Manual) Lymphocytes % (Manual) Monocytes % (Manual) Seg Neutrophils # 9.9 H Seg Neutrophils # Man Lymphocytes # (Manual) Monocytes # (Manual) Haptoglobin PT APTT D-Dimer Heparin Anti-Xa Level ABG pH ABG pO2 139.0 H ABG HCO3 ABG O2 Saturation ABG Base Excess ABG Hemoglobin 8.8 L Oxyhemoglobin Sodium Potassium Chloride 110.5 H Carbon Dioxide BUN 59 H Creatinine 2.8 H Glucose 103 H POC Glucose Calcium Phosphorus Magnesium Iron TIBC Ferritin Total Bilirubin AST ALT 327 H Lactate Dehydrogenase Total Creatine Kinase Troponin T C-Reactive Protein Albumin 3.1 L Urine WBC (Auto) Urine Creatinine Urine Total Protein Complement C3 Coronavirus (PCR) Hepatitis C Antibody Crossmatch 05/09/21 05/09/21 05/09/21 04:10 04:20 04:20 WBC 11.7 H RBC 2.79 L Hgb 8.7 L Hct 26.5 L MCV 95 H MCHC RDW 16.2 H Lymph % (Auto) [place] % (Auto) Lymph # (Auto) [place] # (Auto) Seg Neutrophils % Seg Neuts % (Manual) Lymphocytes % (Manual) Monocytes % (Manual) Seg Neutrophils # Seg Neutrophils # Man Lymphocytes # (Manual) Monocytes # (Manual) Haptoglobin PT APTT D-Dimer Heparin Anti-Xa Level ABG pH ABG pO2 161.6 H ABG HCO3 ABG O2 Saturation ABG Base Excess ABG Hemoglobin 8.3 L Oxyhemoglobin Sodium 151 H Potassium Chloride 114.5 H Carbon Dioxide 21 L BUN 57 H Creatinine 2.4 H Glucose POC Glucose Calcium Phosphorus Magnesium Iron TIBC Ferritin Total Bilirubin AST ALT 210 H Lactate Dehydrogenase Total Creatine Kinase Troponin T C-Reactive Protein Albumin 2.9 L Urine WBC (Auto) Urine Creatinine Urine Total Protein Complement C3 Coronavirus (PCR) Hepatitis C Antibody Crossmatch 05/09/21 05/09/21 05/09/21 09:48 09:48 13:22 WBC 11.6 H RBC 3.00 L Hgb 9.0 L Hct 28.4 L MCV MCHC RDW 15.9 H Lymph % (Auto) 5.9 L [place] % (Auto) 8.9 H Lymph # (Auto) 0.7 L [place] # (Auto) 1.0 H Seg Neutrophils % 84.3 H Seg Neuts % (Manual) Lymphocytes % (Manual) Monocytes % (Manual) Seg Neutrophils # 9.8 H Seg Neutrophils # Man Lymphocytes # (Manual) Monocytes # (Manual) Haptoglobin PT APTT D-Dimer Heparin Anti-Xa Level ABG pH ABG pO2 ABG HCO3 ABG O2 Saturation ABG Base Excess ABG Hemoglobin Oxyhemoglobin Sodium Potassium Chloride Carbon Dioxide BUN Creatinine Glucose POC Glucose Calcium Phosphorus Magnesium Iron TIBC Ferritin Total Bilirubin AST ALT Lactate Dehydrogenase Total Creatine Kinase Troponin T C-Reactive Protein 8.70 H Albumin Urine WBC (Auto) 25.0 H Urine Creatinine Urine Total Protein Complement C3 Coronavirus (PCR) Hepatitis C Antibody Crossmatch 05/09/21 05/09/21 05/10/21 15:20 18:16 04:57 WBC RBC 2.87 L Hgb 8.8 L Hct 27.0 L MCV MCHC RDW 15.9 H Lymph % (Auto) [place] % (Auto) Lymph # (Auto) [place] # (Auto) Seg Neutrophils % Seg Neuts % (Manual) Lymphocytes % (Manual) Monocytes % (Manual) Seg Neutrophils # Seg Neutrophils # Man Lymphocytes # (Manual) Monocytes # (Manual) Haptoglobin PT APTT D-Dimer Heparin Anti-Xa Level ABG pH ABG pO2 102.0 H ABG HCO3 ABG O2 Saturation ABG Base Excess -2.8 L ABG Hemoglobin 9.0 L Oxyhemoglobin Sodium Potassium Chloride Carbon Dioxide BUN Creatinine Glucose POC Glucose 130 H Calcium Phosphorus Magnesium Iron TIBC Ferritin Total Bilirubin AST ALT Lactate Dehydrogenase Total Creatine Kinase Troponin T C-Reactive Protein Albumin Urine WBC (Auto) Urine Creatinine Urine Total Protein Complement C3 Coronavirus (PCR) Hepatitis C Antibody Crossmatch 05/10/21 05/10/21 05/10/21 04:57 04:57 04:57 WBC RBC Hgb Hct MCV MCHC RDW Lymph % (Auto) [place] % (Auto) Lymph # (Auto) [place] # (Auto) Seg Neutrophils % Seg Neuts % (Manual) Lymphocytes % (Manual) Monocytes % (Manual) Seg Neutrophils # Seg Neutrophils # Man Lymphocytes # (Manual) Monocytes # (Manual) Haptoglobin PT APTT D-Dimer 1546.78 H Heparin Anti-Xa Level ABG pH ABG pO2 ABG HCO3 ABG O2 Saturation ABG Base Excess ABG Hemoglobin Oxyhemoglobin Sodium 148 H Potassium Chloride 114.9 H Carbon Dioxide 21 L BUN 57 H Creatinine 2.3 H Glucose 157 H POC Glucose Calcium Phosphorus Magnesium Iron TIBC Ferritin 888.2 H Total Bilirubin AST ALT Lactate Dehydrogenase 289 H Total Creatine Kinase Troponin T C-Reactive Protein 6.80 H Albumin Urine WBC (Auto) Urine Creatinine Urine Total Protein Complement C3 Coronavirus (PCR) Hepatitis C Antibody Crossmatch 05/10/21 05/10/21 05/10/21 05:09 08:04 11:03 WBC RBC Hgb Hct MCV MCHC RDW Lymph % (Auto) [place] % (Auto) Lymph # (Auto) [place] # (Auto) Seg Neutrophils % Seg Neuts % (Manual) Lymphocytes % (Manual) Monocytes % (Manual) Seg Neutrophils # Seg Neutrophils # Man Lymphocytes # (Manual) Monocytes # (Manual) Haptoglobin PT APTT D-Dimer Heparin Anti-Xa Level ABG pH 7.473 H ABG pO2 114.6 H ABG HCO3 ABG O2 Saturation ABG Base Excess ABG Hemoglobin 9.5 L Oxyhemoglobin Sodium Potassium Chloride Carbon Dioxide BUN Creatinine Glucose POC Glucose 152 H Calcium Phosphorus Magnesium Iron TIBC Ferritin Total Bilirubin AST ALT Lactate Dehydrogenase Total Creatine Kinase Troponin T C-Reactive Protein Albumin Urine WBC (Auto) Urine Creatinine 100.8 H Urine Total Protein 42 H Complement C3 Coronavirus (PCR) Hepatitis C Antibody Crossmatch 05/10/21 05/10/21 05/10/21 13:07 18:01 23:31 WBC RBC Hgb Hct MCV MCHC RDW Lymph % (Auto) [place] % (Auto) Lymph # (Auto) [place] # (Auto) Seg Neutrophils % Seg Neuts % (Manual) Lymphocytes % (Manual) Monocytes % (Manual) Seg Neutrophils # Seg Neutrophils # Man Lymphocytes # (Manual) Monocytes # (Manual) Haptoglobin PT APTT D-Dimer Heparin Anti-Xa Level ABG pH ABG pO2 ABG HCO3 ABG O2 Saturation ABG Base Excess ABG Hemoglobin Oxyhemoglobin Sodium Potassium Chloride Carbon Dioxide BUN Creatinine Glucose POC Glucose 150 H 189 H 142 H Calcium Phosphorus Magnesium Iron TIBC Ferritin Total Bilirubin AST ALT Lactate Dehydrogenase Total Creatine Kinase Troponin T C-Reactive Protein Albumin Urine WBC (Auto) Urine Creatinine Urine Total Protein Complement C3 Coronavirus (PCR) Hepatitis C Antibody Crossmatch 05/10/21 05/11/21 05/11/21 Unknown 05:25 06:53 WBC RBC Hgb Hct MCV MCHC RDW Lymph % (Auto) [place] % (Auto) Lymph # (Auto) [place] # (Auto) Seg Neutrophils % Seg Neuts % (Manual) Lymphocytes % (Manual) Monocytes % (Manual) Seg Neutrophils # Seg Neutrophils # Man Lymphocytes # (Manual) Monocytes # (Manual) Haptoglobin PT APTT D-Dimer Heparin Anti-Xa Level ABG pH ABG pO2 126.6 H ABG HCO3 ABG O2 Saturation ABG Base Excess ABG Hemoglobin 9.2 L Oxyhemoglobin Sodium 150 H Potassium Chloride 116.6 H Carbon Dioxide 21 L BUN 62 H Creatinine 2.5 H Glucose 142 H POC Glucose 163 H Calcium Phosphorus Magnesium Iron TIBC Ferritin Total Bilirubin AST ALT Lactate Dehydrogenase Total Creatine Kinase Troponin T C-Reactive Protein Albumin Urine WBC (Auto) Urine Creatinine Urine Total Protein Complement C3 Coronavirus (PCR) Hepatitis C Antibody Crossmatch 05/11/21 05/11/21 05/11/21 06:53 11:06 13:51 WBC RBC 3.07 L Hgb 9.3 L Hct 29.0 L MCV 95 H MCHC RDW 16.1 H Lymph % (Auto) [place] % (Auto) Lymph # (Auto) [place] # (Auto) Seg Neutrophils % Seg Neuts % (Manual) Lymphocytes % (Manual) Monocytes % (Manual) Seg Neutrophils # Seg Neutrophils # Man Lymphocytes # (Manual) Monocytes # (Manual) Haptoglobin PT APTT D-Dimer Heparin Anti-Xa Level ABG pH ABG pO2 74.9 L ABG HCO3 ABG O2 Saturation ABG Base Excess -3.3 L ABG Hemoglobin 10.8 L Oxyhemoglobin Sodium Potassium Chloride Carbon Dioxide BUN Creatinine Glucose POC Glucose 145 H Calcium Phosphorus Magnesium Iron TIBC Ferritin Total Bilirubin AST ALT Lactate Dehydrogenase Total Creatine Kinase Troponin T C-Reactive Protein Albumin Urine WBC (Auto) Urine Creatinine Urine Total Protein Complement C3 Coronavirus (PCR) Hepatitis C Antibody Crossmatch 05/11/21 05/11/21 05/11/21 14:43 14:43 15:47 WBC RBC Hgb 9.2 L Hct 29.7 L MCV MCHC RDW Lymph % (Auto) [place] % (Auto) Lymph # (Auto) [place] # (Auto) Seg Neutrophils % Seg Neuts % (Manual) Lymphocytes % (Manual) Monocytes % (Manual) Seg Neutrophils # Seg Neutrophils # Man Lymphocytes # (Manual) Monocytes # (Manual) Haptoglobin PT 15.6 H APTT D-Dimer Heparin Anti-Xa Level ABG pH ABG pO2 ABG HCO3 ABG O2 Saturation ABG Base Excess ABG Hemoglobin Oxyhemoglobin Sodium Potassium Chloride Carbon Dioxide BUN Creatinine Glucose POC Glucose 137 H Calcium Phosphorus Magnesium Iron TIBC Ferritin Total Bilirubin AST ALT Lactate Dehydrogenase Total Creatine Kinase Troponin T C-Reactive Protein Albumin Urine WBC (Auto) Urine Creatinine Urine Total Protein Complement C3 Coronavirus (PCR) Hepatitis C Antibody Crossmatch 05/12/21 05/12/21 05/12/21 00:04 05:07 07:19 WBC 11.9 H RBC 3.00 L Hgb 9.1 L Hct 28.9 L MCV 96 H MCHC RDW 16.7 H Lymph % (Auto) 11.5 L [place] % (Auto) 8.2 H Lymph # (Auto) [place] # (Auto) 1.0 H Seg Neutrophils % 80.0 H Seg Neuts % (Manual) Lymphocytes % (Manual) Monocytes % (Manual) Seg Neutrophils # 9.6 H Seg Neutrophils # Man Lymphocytes # (Manual) Monocytes # (Manual) Haptoglobin PT APTT D-Dimer Heparin Anti-Xa Level ABG pH ABG pO2 ABG HCO3 ABG O2 Saturation ABG Base Excess ABG Hemoglobin Oxyhemoglobin Sodium Potassium Chloride Carbon Dioxide BUN Creatinine Glucose POC Glucose 121 H 117 H Calcium Phosphorus Magnesium Iron TIBC Ferritin Total Bilirubin AST ALT Lactate Dehydrogenase Total Creatine Kinase Troponin T C-Reactive Protein Albumin Urine WBC (Auto) Urine Creatinine Urine Total Protein Complement C3 Coronavirus (PCR) Hepatitis C Antibody Crossmatch 05/12/21 05/12/21 05/12/21 07:19 07:19 07:19 WBC RBC Hgb Hct MCV MCHC RDW Lymph % (Auto) [place] % (Auto) Lymph # (Auto) [place] # (Auto) Seg Neutrophils % Seg Neuts % (Manual) Lymphocytes % (Manual) Monocytes % (Manual) Seg Neutrophils # Seg Neutrophils # Man Lymphocytes # (Manual) Monocytes # (Manual) Haptoglobin PT APTT D-Dimer 2730.61 H Heparin Anti-Xa Level ABG pH ABG pO2 ABG HCO3 ABG O2 Saturation ABG Base Excess ABG Hemoglobin Oxyhemoglobin Sodium 146 H Potassium 5.1 H Chloride 112.4 H Carbon Dioxide 21 L BUN 61 H Creatinine 2.2 H Glucose 136 H POC Glucose Calcium 8.1 L Phosphorus Magnesium Iron TIBC Ferritin 640.2 H Total Bilirubin AST ALT Lactate Dehydrogenase 314 H Total Creatine Kinase Troponin T C-Reactive Protein 1.60 H Albumin Urine WBC (Auto) Urine Creatinine Urine Total Protein Complement C3 Coronavirus (PCR) Hepatitis C Antibody Crossmatch 05/12/21 05/12/21 05/12/21 11:10 16:10 16:38 WBC RBC Hgb Hct MCV MCHC RDW Lymph % (Auto) [place] % (Auto) Lymph # (Auto) [place] # (Auto) Seg Neutrophils % Seg Neuts % (Manual) Lymphocytes % (Manual) Monocytes % (Manual) Seg Neutrophils # Seg Neutrophils # Man Lymphocytes # (Manual) Monocytes # (Manual) Haptoglobin PT APTT D-Dimer Heparin Anti-Xa Level 0.20 L ABG pH ABG pO2 ABG HCO3 ABG O2 Saturation ABG Base Excess ABG Hemoglobin Oxyhemoglobin Sodium Potassium Chloride Carbon Dioxide BUN Creatinine Glucose POC Glucose 131 H 157 H Calcium Phosphorus Magnesium Iron TIBC Ferritin Total Bilirubin AST ALT Lactate Dehydrogenase Total Creatine Kinase Troponin T C-Reactive Protein Albumin Urine WBC (Auto) Urine Creatinine Urine Total Protein Complement C3 Coronavirus (PCR) Hepatitis C Antibody Crossmatch 05/12/21 05/13/21 05/13/21 23:30 00:12 04:20 WBC RBC Hgb Hct MCV MCHC RDW Lymph % (Auto) [place] % (Auto) Lymph # (Auto) [place] # (Auto) Seg Neutrophils % Seg Neuts % (Manual) Lymphocytes % (Manual) Monocytes % (Manual) Seg Neutrophils # Seg Neutrophils # Man Lymphocytes # (Manual) Monocytes # (Manual) Haptoglobin PT APTT D-Dimer Heparin Anti-Xa Level 0.13 L ABG pH ABG pO2 ABG HCO3 ABG O2 Saturation ABG Base Excess ABG Hemoglobin Oxyhemoglobin Sodium Potassium Chloride 111.2 H Carbon Dioxide BUN 53 H Creatinine 1.9 H Glucose 121 H POC Glucose 115 H Calcium 8.3 L Phosphorus Magnesium Iron TIBC Ferritin Total Bilirubin AST ALT Lactate Dehydrogenase Total Creatine Kinase Troponin T C-Reactive Protein Albumin Urine WBC (Auto) Urine Creatinine Urine Total Protein Complement C3 Coronavirus (PCR) Hepatitis C Antibody Crossmatch 05/13/21 05/13/21 05/13/21 04:20 11:15 11:29 WBC 13.1 H RBC 2.86 L Hgb 8.5 L Hct 26.9 L MCV MCHC RDW 15.7 H Lymph % (Auto) [place] % (Auto) Lymph # (Auto) [place] # (Auto) Seg Neutrophils % Seg Neuts % (Manual) Lymphocytes % (Manual) Monocytes % (Manual) Seg Neutrophils # Seg Neutrophils # Man Lymphocytes # (Manual) Monocytes # (Manual) Haptoglobin PT APTT D-Dimer Heparin Anti-Xa Level ABG pH 7.456 H ABG pO2 106.0 H ABG HCO3 ABG O2 Saturation ABG Base Excess ABG Hemoglobin 7.1 L Oxyhemoglobin Sodium Potassium Chloride Carbon Dioxide BUN Creatinine Glucose POC Glucose 121 H Calcium Phosphorus Magnesium Iron TIBC Ferritin Total Bilirubin AST ALT Lactate Dehydrogenase Total Creatine Kinase Troponin T C-Reactive Protein Albumin Urine WBC (Auto) Urine Creatinine Urine Total Protein Complement C3 Coronavirus (PCR) Hepatitis C Antibody Crossmatch 05/13/21 05/13/21 05/14/21 16:38 23:43 04:26 WBC 14.2 H RBC 3.11 L Hgb 9.4 L Hct 29.3 L MCV MCHC RDW 15.4 H Lymph % (Auto) [place] % (Auto) Lymph # (Auto) [place] # (Auto) Seg Neutrophils % Seg Neuts % (Manual) Lymphocytes % (Manual) Monocytes % (Manual) Seg Neutrophils # Seg Neutrophils # Man Lymphocytes # (Manual) Monocytes # (Manual) Haptoglobin PT APTT D-Dimer Heparin Anti-Xa Level ABG pH ABG pO2 ABG HCO3 ABG O2 Saturation ABG Base Excess ABG Hemoglobin Oxyhemoglobin Sodium Potassium Chloride Carbon Dioxide BUN Creatinine Glucose POC Glucose 119 H 55 L Calcium Phosphorus Magnesium Iron TIBC Ferritin Total Bilirubin AST ALT Lactate Dehydrogenase Total Creatine Kinase Troponin T C-Reactive Protein Albumin Urine WBC (Auto) Urine Creatinine Urine Total Protein Complement C3 Coronavirus (PCR) Hepatitis C Antibody Crossmatch 05/14/21 05/14/21 05/14/21 04:26 05:26 06:51 WBC RBC Hgb Hct MCV MCHC RDW Lymph % (Auto) [place] % (Auto) Lymph # (Auto) [place] # (Auto) Seg Neutrophils % Seg Neuts % (Manual) Lymphocytes % (Manual) Monocytes % (Manual) Seg Neutrophils # Seg Neutrophils # Man Lymphocytes # (Manual) Monocytes # (Manual) Haptoglobin PT APTT D-Dimer Heparin Anti-Xa Level ABG pH ABG pO2 ABG HCO3 ABG O2 Saturation ABG Base Excess ABG Hemoglobin Oxyhemoglobin Sodium Potassium 3.4 L Chloride 107.6 H Carbon Dioxide BUN 42 H Creatinine 1.9 H Glucose POC Glucose 51 L 62 L Calcium Phosphorus Magnesium Iron TIBC Ferritin Total Bilirubin AST ALT Lactate Dehydrogenase Total Creatine Kinase Troponin T C-Reactive Protein Albumin Urine WBC (Auto) Urine Creatinine Urine Total Protein Complement C3 Coronavirus (PCR) Hepatitis C Antibody Crossmatch 05/14/21 05/14/21 05/14/21 09:58 12:05 12:08 WBC RBC Hgb Hct MCV MCHC RDW Lymph % (Auto) [place] % (Auto) Lymph # (Auto) [place] # (Auto) Seg Neutrophils % Seg Neuts % (Manual) Lymphocytes % (Manual) Monocytes % (Manual) Seg Neutrophils # Seg Neutrophils # Man Lymphocytes # (Manual) Monocytes # (Manual) Haptoglobin PT APTT D-Dimer Heparin Anti-Xa Level ABG pH ABG pO2 ABG HCO3 ABG O2 Saturation ABG Base Excess ABG Hemoglobin Oxyhemoglobin Sodium Potassium 3.4 L Chloride Carbon Dioxide BUN 36 H Creatinine 1.8 H Glucose 133 H POC Glucose 60 L 127 H Calcium Phosphorus Magnesium Iron TIBC Ferritin Total Bilirubin AST ALT Lactate Dehydrogenase Total Creatine Kinase Troponin T C-Reactive Protein Albumin Urine WBC (Auto) Urine Creatinine Urine Total Protein Complement C3 Coronavirus (PCR) Hepatitis C Antibody Crossmatch 05/14/21 05/14/21 05/15/21 17:20 23:37 05:34 WBC RBC Hgb Hct MCV MCHC RDW Lymph % (Auto) [place] % (Auto) Lymph # (Auto) [place] # (Auto) Seg Neutrophils % Seg Neuts % (Manual) Lymphocytes % (Manual) Monocytes % (Manual) Seg Neutrophils # Seg Neutrophils # Man Lymphocytes # (Manual) Monocytes # (Manual) Haptoglobin PT APTT D-Dimer Heparin Anti-Xa Level ABG pH ABG pO2 ABG HCO3 ABG O2 Saturation ABG Base Excess ABG Hemoglobin Oxyhemoglobin Sodium Potassium Chloride Carbon Dioxide BUN Creatinine Glucose POC Glucose 144 H 115 H 119 H Calcium Phosphorus Magnesium Iron TIBC Ferritin Total Bilirubin AST ALT Lactate Dehydrogenase Total Creatine Kinase Troponin T C-Reactive Protein Albumin Urine WBC (Auto) Urine Creatinine Urine Total Protein Complement C3 Coronavirus (PCR) Hepatitis C Antibody Crossmatch 05/15/21 05/15/21 05/15/21 07:26 07:26 14:35 WBC 13.8 H RBC 3.32 L Hgb 10.0 L Hct 31.2 L MCV MCHC RDW 16.0 H Lymph % (Auto) [place] % (Auto) Lymph # (Auto) [place] # (Auto) Seg Neutrophils % Seg Neuts % (Manual) Lymphocytes % (Manual) Monocytes % (Manual) Seg Neutrophils # Seg Neutrophils # Man Lymphocytes # (Manual) Monocytes # (Manual) Haptoglobin PT APTT D-Dimer Heparin Anti-Xa Level ABG pH ABG pO2 ABG HCO3 ABG O2 Saturation ABG Base Excess ABG Hemoglobin Oxyhemoglobin Sodium 149 H D Potassium 3.5 L Chloride 113.2 H Carbon Dioxide BUN 29 H Creatinine 1.8 H Glucose 113 H POC Glucose 143 H Calcium Phosphorus Magnesium Iron TIBC Ferritin Total Bilirubin AST ALT Lactate Dehydrogenase Total Creatine Kinase Troponin T C-Reactive Protein Albumin Urine WBC (Auto) Urine Creatinine Urine Total Protein Complement C3 Coronavirus (PCR) Hepatitis C Antibody Crossmatch 05/16/21 05/16/21 05/16/21 06:12 08:43 10:05 WBC RBC Hgb Hct MCV MCHC RDW Lymph % (Auto) [place] % (Auto) Lymph # (Auto) [place] # (Auto) Seg Neutrophils % Seg Neuts % (Manual) Lymphocytes % (Manual) Monocytes % (Manual) Seg Neutrophils # Seg Neutrophils # Man Lymphocytes # (Manual) Monocytes # (Manual) Haptoglobin PT APTT D-Dimer Heparin Anti-Xa Level 0.21 L ABG pH ABG pO2 240.8 H ABG HCO3 ABG O2 Saturation 99.4 H ABG Base Excess -2.6 L ABG Hemoglobin 10.7 L Oxyhemoglobin Sodium Potassium Chloride Carbon Dioxide BUN Creatinine Glucose POC Glucose 34 L Calcium Phosphorus Magnesium Iron TIBC Ferritin Total Bilirubin AST ALT Lactate Dehydrogenase Total Creatine Kinase Troponin T C-Reactive Protein Albumin Urine WBC (Auto) Urine Creatinine Urine Total Protein Complement C3 Coronavirus (PCR) Hepatitis C Antibody Crossmatch 05/16/21 05/16/21 05/16/21 10:21 10:21 13:14 WBC 27.6 H RBC Hgb 11.4 L Hct MCV 99 H MCHC 30 L RDW 18.1 H Lymph % (Auto) [place] % (Auto) Lymph # (Auto) [place] # (Auto) Seg Neutrophils % Seg Neuts % (Manual) 83.0 H Lymphocytes % (Manual) 4.0 L Monocytes % (Manual) 9.0 H Seg Neutrophils # Seg Neutrophils # Man 22.9 H Lymphocytes # (Manual) 1.1 L Monocytes # (Manual) 2.5 H Haptoglobin PT APTT D-Dimer Heparin Anti-Xa Level ABG pH ABG pO2 ABG HCO3 ABG O2 Saturation ABG Base Excess ABG Hemoglobin Oxyhemoglobin Sodium Potassium Chloride 108.8 H Carbon Dioxide 17 L BUN 26 H Creatinine 1.9 H Glucose 141 H POC Glucose Calcium Phosphorus Magnesium Iron TIBC Ferritin Total Bilirubin AST ALT Lactate Dehydrogenase Total Creatine Kinase Troponin T 0.503 H* C-Reactive Protein Albumin 3.1 L Urine WBC (Auto) Urine Creatinine Urine Total Protein Complement C3 Coronavirus (PCR) Hepatitis C Antibody Crossmatch 05/16/21 05/17/21 05/17/21 18:40 00:02 04:52 WBC RBC Hgb 8.8 L Hct 28.5 L D MCV MCHC RDW Lymph % (Auto) [place] % (Auto) Lymph # (Auto) [place] # (Auto) Seg Neutrophils % Seg Neuts % (Manual) Lymphocytes % (Manual) Monocytes % (Manual) Seg Neutrophils # Seg Neutrophils # Man Lymphocytes # (Manual) Monocytes # (Manual) Haptoglobin PT APTT D-Dimer Heparin Anti-Xa Level ABG pH ABG pO2 ABG HCO3 ABG O2 Saturation ABG Base Excess ABG Hemoglobin Oxyhemoglobin Sodium Potassium Chloride Carbon Dioxide BUN Creatinine Glucose POC Glucose 114 H Calcium Phosphorus Magnesium Iron TIBC Ferritin Total Bilirubin AST ALT Lactate Dehydrogenase Total Creatine Kinase Troponin T 0.400 H* D C-Reactive Protein Albumin Urine WBC (Auto) Urine Creatinine Urine Total Protein Complement C3 Coronavirus (PCR) Hepatitis C Antibody Crossmatch 05/17/21 05/17/21 05/17/21 04:52 05:15 06:50 WBC RBC Hgb Hct MCV MCHC RDW Lymph % (Auto) [place] % (Auto) Lymph # (Auto) [place] # (Auto) Seg Neutrophils % Seg Neuts % (Manual) Lymphocytes % (Manual) Monocytes % (Manual) Seg Neutrophils # Seg Neutrophils # Man Lymphocytes # (Manual) Monocytes # (Manual) Haptoglobin PT APTT D-Dimer Heparin Anti-Xa Level ABG pH ABG pO2 193.7 H ABG HCO3 27.7 H ABG O2 Saturation 99.2 H ABG Base Excess 3.4 H ABG Hemoglobin 9.2 L Oxyhemoglobin Sodium 146 H Potassium Chloride 110.3 H Carbon Dioxide BUN 33 H Creatinine 2.3 H Glucose 120 H POC Glucose 109 H Calcium Phosphorus Magnesium Iron TIBC Ferritin Total Bilirubin AST ALT Lactate Dehydrogenase Total Creatine Kinase Troponin T C-Reactive Protein Albumin Urine WBC (Auto) Urine Creatinine Urine Total Protein Complement C3 Coronavirus (PCR) Hepatitis C Antibody Crossmatch 05/17/21 05/17/21 05/17/21 10:30 11:33 15:35 WBC RBC Hgb Hct MCV MCHC RDW Lymph % (Auto) [place] % (Auto) Lymph # (Auto) [place] # (Auto) Seg Neutrophils % Seg Neuts % (Manual) Lymphocytes % (Manual) Monocytes % (Manual) Seg Neutrophils # Seg Neutrophils # Man Lymphocytes # (Manual) Monocytes # (Manual) Haptoglobin PT APTT D-Dimer Heparin Anti-Xa Level ABG pH 7.457 H ABG pO2 162.5 H 103.7 H ABG HCO3 27.7 H 27.5 H ABG O2 Saturation ABG Base Excess 3.6 H ABG Hemoglobin 10.1 L 11.5 L Oxyhemoglobin Sodium Potassium Chloride Carbon Dioxide BUN Creatinine Glucose POC Glucose 122 H Calcium Phosphorus Magnesium Iron TIBC Ferritin Total Bilirubin AST ALT Lactate Dehydrogenase Total Creatine Kinase Troponin T C-Reactive Protein Albumin Urine WBC (Auto) Urine Creatinine Urine Total Protein Complement C3 Coronavirus (PCR) Hepatitis C Antibody Crossmatch 05/17/21 05/17/21 05/17/21 16:21 18:18 23:29 WBC RBC Hgb 9.6 L Hct 30.3 L MCV MCHC RDW Lymph % (Auto) [place] % (Auto) Lymph # (Auto) [place] # (Auto) Seg Neutrophils % Seg Neuts % (Manual) Lymphocytes % (Manual) Monocytes % (Manual) Seg Neutrophils # Seg Neutrophils # Man Lymphocytes # (Manual) Monocytes # (Manual) Haptoglobin PT APTT D-Dimer Heparin Anti-Xa Level ABG pH ABG pO2 ABG HCO3 ABG O2 Saturation ABG Base Excess ABG Hemoglobin Oxyhemoglobin Sodium Potassium Chloride Carbon Dioxide BUN Creatinine Glucose POC Glucose 133 H 111 H Calcium Phosphorus Magnesium Iron TIBC Ferritin Total Bilirubin AST ALT Lactate Dehydrogenase Total Creatine Kinase Troponin T C-Reactive Protein Albumin Urine WBC (Auto) Urine Creatinine Urine Total Protein Complement C3 Coronavirus (PCR) Hepatitis C Antibody Crossmatch 05/18/21 05/18/21 05/18/21 04:15 04:15 05:01 WBC 16.8 H RBC 3.03 L Hgb 8.9 L Hct 28.7 L MCV 95 H MCHC 31 L RDW 16.4 H Lymph % (Auto) [place] % (Auto) Lymph # (Auto) [place] # (Auto) Seg Neutrophils % Seg Neuts % (Manual) Lymphocytes % (Manual) Monocytes % (Manual) Seg Neutrophils # Seg Neutrophils # Man Lymphocytes # (Manual) Monocytes # (Manual) Haptoglobin PT APTT D-Dimer Heparin Anti-Xa Level ABG pH ABG pO2 ABG HCO3 ABG O2 Saturation ABG Base Excess ABG Hemoglobin Oxyhemoglobin Sodium Potassium Chloride Carbon Dioxide BUN 40 H Creatinine 2.1 H Glucose 115 H POC Glucose 113 H Calcium Phosphorus Magnesium Iron TIBC Ferritin Total Bilirubin AST ALT Lactate Dehydrogenase Total Creatine Kinase Troponin T C-Reactive Protein Albumin Urine WBC (Auto) Urine Creatinine Urine Total Protein Complement C3 Coronavirus (PCR) Hepatitis C Antibody Crossmatch 05/18/21 05/18/21 05/19/21 11:18 12:50 05:23 WBC 18.5 H RBC 3.31 L Hgb 9.9 L Hct 31.1 L MCV MCHC RDW 16.9 H Lymph % (Auto) [place] % (Auto) Lymph # (Auto) [place] # (Auto) Seg Neutrophils % Seg Neuts % (Manual) Lymphocytes % (Manual) Monocytes % (Manual) Seg Neutrophils # Seg Neutrophils # Man Lymphocytes # (Manual) Monocytes # (Manual) Haptoglobin PT APTT D-Dimer Heparin Anti-Xa Level ABG pH ABG pO2 79.6 L ABG HCO3 28.0 H ABG O2 Saturation ABG Base Excess 3.3 H ABG Hemoglobin 6.2 L Oxyhemoglobin Sodium Potassium Chloride Carbon Dioxide BUN Creatinine Glucose POC Glucose 129 H Calcium Phosphorus Magnesium Iron TIBC Ferritin Total Bilirubin AST ALT Lactate Dehydrogenase Total Creatine Kinase Troponin T C-Reactive Protein Albumin Urine WBC (Auto) Urine Creatinine Urine Total Protein Complement C3 Coronavirus (PCR) Hepatitis C Antibody Crossmatch 05/19/21 05/19/21 05/19/21 05:23 05:23 11:24 WBC RBC Hgb Hct MCV MCHC RDW Lymph % (Auto) [place] % (Auto) Lymph # (Auto) [place] # (Auto) Seg Neutrophils % Seg Neuts % (Manual) Lymphocytes % (Manual) Monocytes % (Manual) Seg Neutrophils # Seg Neutrophils # Man Lymphocytes # (Manual) Monocytes # (Manual) Haptoglobin PT APTT D-Dimer Heparin Anti-Xa Level ABG pH ABG pO2 ABG HCO3 ABG O2 Saturation ABG Base Excess ABG Hemoglobin Oxyhemoglobin Sodium Potassium Chloride Carbon Dioxide BUN 35 H 34 H Creatinine 2.0 H 2.1 H Glucose POC Glucose 111 H Calcium Phosphorus Magnesium Iron TIBC Ferritin Total Bilirubin AST ALT Lactate Dehydrogenase Total Creatine Kinase Troponin T C-Reactive Protein Albumin Urine WBC (Auto) Urine Creatinine Urine Total Protein Complement C3 Coronavirus (PCR) Hepatitis C Antibody Crossmatch 05/19/21 05/19/21 05/19/21 16:33 19:36 23:47 WBC RBC Hgb Hct MCV MCHC RDW Lymph % (Auto) [place] % (Auto) Lymph # (Auto) [place] # (Auto) Seg Neutrophils % Seg Neuts % (Manual) Lymphocytes % (Manual) Monocytes % (Manual) Seg Neutrophils # Seg Neutrophils # Man Lymphocytes # (Manual) Monocytes # (Manual) Haptoglobin PT APTT 72.5 H* D-Dimer Heparin Anti-Xa Level ABG pH ABG pO2 ABG HCO3 ABG O2 Saturation ABG Base Excess ABG Hemoglobin Oxyhemoglobin Sodium Potassium Chloride Carbon Dioxide BUN Creatinine Glucose POC Glucose 131 H 122 H Calcium Phosphorus Magnesium Iron TIBC Ferritin Total Bilirubin AST ALT Lactate Dehydrogenase Total Creatine Kinase Troponin T C-Reactive Protein Albumin Urine WBC (Auto) Urine Creatinine Urine Total Protein Complement C3 Coronavirus (PCR) Hepatitis C Antibody Crossmatch 05/20/21 05/20/21 05/20/21 05:14 05:14 06:12 WBC 19.7 H RBC 3.19 L Hgb 9.5 L Hct 29.9 L MCV MCHC RDW 17.3 H Lymph % (Auto) [place] % (Auto) Lymph # (Auto) [place] # (Auto) Seg Neutrophils % Seg Neuts % (Manual) Lymphocytes % (Manual) Monocytes % (Manual) Seg Neutrophils # Seg Neutrophils # Man Lymphocytes # (Manual) Monocytes # (Manual) Haptoglobin PT APTT D-Dimer Heparin Anti-Xa Level ABG pH ABG pO2 ABG HCO3 ABG O2 Saturation ABG Base Excess ABG Hemoglobin Oxyhemoglobin Sodium Potassium Chloride Carbon Dioxide BUN 31 H Creatinine 2.1 H Glucose 130 H POC Glucose 120 H Calcium Phosphorus Magnesium Iron TIBC Ferritin Total Bilirubin AST ALT Lactate Dehydrogenase Total Creatine Kinase Troponin T C-Reactive Protein Albumin Urine WBC (Auto) Urine Creatinine Urine Total Protein Complement C3 Coronavirus (PCR) Hepatitis C Antibody Crossmatch 05/20/21 05/20/21 05/20/21 11:10 18:12 23:55 WBC RBC Hgb Hct MCV MCHC RDW Lymph % (Auto) [place] % (Auto) Lymph # (Auto) [place] # (Auto) Seg Neutrophils % Seg Neuts % (Manual) Lymphocytes % (Manual) Monocytes % (Manual) Seg Neutrophils # Seg Neutrophils # Man Lymphocytes # (Manual) Monocytes # (Manual) Haptoglobin PT APTT D-Dimer Heparin Anti-Xa Level ABG pH ABG pO2 ABG HCO3 ABG O2 Saturation ABG Base Excess ABG Hemoglobin Oxyhemoglobin Sodium Potassium Chloride Carbon Dioxide BUN Creatinine Glucose POC Glucose 152 H 137 H 146 H Calcium Phosphorus Magnesium Iron TIBC Ferritin Total Bilirubin AST ALT Lactate Dehydrogenase Total Creatine Kinase Troponin T C-Reactive Protein Albumin Urine WBC (Auto) Urine Creatinine Urine Total Protein Complement C3 Coronavirus (PCR) Hepatitis C Antibody Crossmatch 05/21/21 05/21/21 05/21/21 03:12 03:12 05:53 WBC 26.2 H RBC 2.58 L Hgb 7.7 L Hct 24.2 L MCV MCHC RDW 17.8 H Lymph % (Auto) [place] % (Auto) Lymph # (Auto) [place] # (Auto) Seg Neutrophils % Seg Neuts % (Manual) Lymphocytes % (Manual) Monocytes % (Manual) Seg Neutrophils # Seg Neutrophils # Man Lymphocytes # (Manual) Monocytes # (Manual) Haptoglobin PT APTT D-Dimer Heparin Anti-Xa Level ABG pH ABG pO2 ABG HCO3 ABG O2 Saturation ABG Base Excess ABG Hemoglobin Oxyhemoglobin Sodium 133 L Potassium 5.7 H D Chloride Carbon Dioxide 21 L BUN 49 H Creatinine 2.6 H Glucose 160 H POC Glucose 118 H Calcium Phosphorus Magnesium Iron TIBC Ferritin Total Bilirubin AST ALT Lactate Dehydrogenase Total Creatine Kinase Troponin T C-Reactive Protein Albumin Urine WBC (Auto) Urine Creatinine Urine Total Protein Complement C3 Coronavirus (PCR) Hepatitis C Antibody Crossmatch 05/21/21 05/22/21 05/22/21 18:00 00:13 05:05 WBC RBC Hgb Hct MCV MCHC RDW Lymph % (Auto) [place] % (Auto) Lymph # (Auto) [place] # (Auto) Seg Neutrophils % Seg Neuts % (Manual) Lymphocytes % (Manual) Monocytes % (Manual) Seg Neutrophils # Seg Neutrophils # Man Lymphocytes # (Manual) Monocytes # (Manual) Haptoglobin PT APTT D-Dimer Heparin Anti-Xa Level ABG pH 7.500 H ABG pO2 56.6 L ABG HCO3 ABG O2 Saturation ABG Base Excess ABG Hemoglobin 6.7 L Oxyhemoglobin 94.8 L Sodium 136 L Potassium 5.2 H Chloride Carbon Dioxide BUN 59 H Creatinine 2.6 H Glucose 138 H POC Glucose 109 H Calcium Phosphorus Magnesium Iron TIBC Ferritin Total Bilirubin AST ALT Lactate Dehydrogenase Total Creatine Kinase Troponin T C-Reactive Protein Albumin Urine WBC (Auto) Urine Creatinine Urine Total Protein Complement C3 Coronavirus (PCR) Hepatitis C Antibody Crossmatch 05/22/21 05/22/21 05/22/21 06:07 11:49 16:33 WBC RBC Hgb Hct MCV MCHC RDW Lymph % (Auto) [place] % (Auto) Lymph # (Auto) [place] # (Auto) Seg Neutrophils % Seg Neuts % (Manual) Lymphocytes % (Manual) Monocytes % (Manual) Seg Neutrophils # Seg Neutrophils # Man Lymphocytes # (Manual) Monocytes # (Manual) Haptoglobin PT APTT D-Dimer Heparin Anti-Xa Level ABG pH ABG pO2 ABG HCO3 ABG O2 Saturation ABG Base Excess ABG Hemoglobin Oxyhemoglobin Sodium Potassium Chloride Carbon Dioxide BUN Creatinine Glucose POC Glucose 110 H 117 H 119 H Calcium Phosphorus Magnesium Iron TIBC Ferritin Total Bilirubin AST ALT Lactate Dehydrogenase Total Creatine Kinase Troponin T C-Reactive Protein Albumin Urine WBC (Auto) Urine Creatinine Urine Total Protein Complement C3 Coronavirus (PCR) Hepatitis C Antibody Crossmatch 05/23/21 05/23/21 05/23/21 04:48 04:48 07:12 WBC 21.1 H RBC 2.03 L Hgb 6.2 L Hct 19.4 L* MCV 96 H MCHC RDW 17.5 H Lymph % (Auto) [place] % (Auto) Lymph # (Auto) [place] # (Auto) Seg Neutrophils % Seg Neuts % (Manual) Lymphocytes % (Manual) Monocytes % (Manual) Seg Neutrophils # Seg Neutrophils # Man Lymphocytes # (Manual) Monocytes # (Manual) Haptoglobin PT APTT D-Dimer Heparin Anti-Xa Level ABG pH ABG pO2 ABG HCO3 ABG O2 Saturation ABG Base Excess ABG Hemoglobin Oxyhemoglobin Sodium Potassium Chloride Carbon Dioxide BUN 62 H Creatinine 2.8 H Glucose 110 H POC Glucose Calcium Phosphorus Magnesium Iron TIBC Ferritin Total Bilirubin AST ALT Lactate Dehydrogenase Total Creatine Kinase Troponin T C-Reactive Protein Albumin Urine WBC (Auto) Urine Creatinine Urine Total Protein Complement C3 Coronavirus (PCR) Hepatitis C Antibody Crossmatch See Detail 05/23/21 05/23/21 05/23/21 11:19 14:15 16:12 WBC RBC Hgb Hct MCV MCHC RDW Lymph % (Auto) [place] % (Auto) Lymph # (Auto) [place] # (Auto) Seg Neutrophils % Seg Neuts % (Manual) Lymphocytes % (Manual) Monocytes % (Manual) Seg Neutrophils # Seg Neutrophils # Man Lymphocytes # (Manual) Monocytes # (Manual) Haptoglobin PT APTT D-Dimer Heparin Anti-Xa Level ABG pH ABG pO2 294.7 H ABG HCO3 ABG O2 Saturation 99.5 H ABG Base Excess ABG Hemoglobin 6.5 L Oxyhemoglobin Sodium Potassium Chloride Carbon Dioxide BUN Creatinine Glucose POC Glucose 127 H 120 H Calcium Phosphorus Magnesium Iron TIBC Ferritin Total Bilirubin AST ALT Lactate Dehydrogenase Total Creatine Kinase Troponin T C-Reactive Protein Albumin Urine WBC (Auto) Urine Creatinine Urine Total Protein Complement C3 Coronavirus (PCR) Hepatitis C Antibody Crossmatch 05/23/21 05/23/21 05/23/21 16:30 16:30 18:54 WBC RBC Hgb Hct MCV MCHC RDW Lymph % (Auto) [place] % (Auto) Lymph # (Auto) [place] # (Auto) Seg Neutrophils % Seg Neuts % (Manual) Lymphocytes % (Manual) Monocytes % (Manual) Seg Neutrophils # Seg Neutrophils # Man Lymphocytes # (Manual) Monocytes # (Manual) Haptoglobin 254 H PT APTT D-Dimer Heparin Anti-Xa Level ABG pH ABG pO2 ABG HCO3 ABG O2 Saturation ABG Base Excess ABG Hemoglobin Oxyhemoglobin Sodium Potassium Chloride Carbon Dioxide BUN Creatinine Glucose POC Glucose Calcium Phosphorus Magnesium Iron TIBC Ferritin Total Bilirubin AST ALT Lactate Dehydrogenase Total Creatine Kinase Troponin T C-Reactive Protein Albumin Urine WBC (Auto) 12.0 H Urine Creatinine 100.1 H Urine Total Protein Complement C3 Coronavirus (PCR) Hepatitis C Antibody Crossmatch 05/23/21 05/23/21 05/24/21 18:54 Unknown 00:11 WBC 21.7 H RBC 2.40 L Hgb 7.1 L Hct 22.9 L MCV 96 H MCHC 31 L RDW 16.8 H Lymph % (Auto) [place] % (Auto) Lymph # (Auto) [place] # (Auto) Seg Neutrophils % Seg Neuts % (Manual) Lymphocytes % (Manual) Monocytes % (Manual) Seg Neutrophils # Seg Neutrophils # Man Lymphocytes # (Manual) Monocytes # (Manual) Haptoglobin PT APTT D-Dimer Heparin Anti-Xa Level ABG pH ABG pO2 ABG HCO3 ABG O2 Saturation ABG Base Excess ABG Hemoglobin Oxyhemoglobin Sodium Potassium Chloride Carbon Dioxide BUN Creatinine Glucose POC Glucose 110 H Calcium Phosphorus Magnesium Iron 10 L TIBC 151 L Ferritin Total Bilirubin AST ALT Lactate Dehydrogenase 311 H Total Creatine Kinase Troponin T C-Reactive Protein Albumin Urine WBC (Auto) Urine Creatinine Urine Total Protein Complement C3 Coronavirus (PCR) Hepatitis C Antibody Crossmatch 05/24/21 05/24/21 05/24/21 04:11 04:11 05:10 WBC 16.7 H RBC 2.19 L Hgb 6.4 L Hct 20.5 L MCV MCHC 31 L RDW 17.0 H Lymph % (Auto) [place] % (Auto) Lymph # (Auto) [place] # (Auto) Seg Neutrophils % Seg Neuts % (Manual) Lymphocytes % (Manual) Monocytes % (Manual) Seg Neutrophils # Seg Neutrophils # Man Lymphocytes # (Manual) Monocytes # (Manual) Haptoglobin PT APTT D-Dimer Heparin Anti-Xa Level ABG pH ABG pO2 ABG HCO3 ABG O2 Saturation ABG Base Excess ABG Hemoglobin Oxyhemoglobin Sodium Potassium Chloride Carbon Dioxide BUN 78 H Creatinine 2.8 H Glucose 119 H POC Glucose 108 H Calcium Phosphorus 5.30 H Magnesium 2.60 H Iron TIBC Ferritin Total Bilirubin AST 152 H ALT 125 H Lactate Dehydrogenase Total Creatine Kinase Troponin T C-Reactive Protein Albumin 2.5 L Urine WBC (Auto) Urine Creatinine Urine Total Protein Complement C3 Coronavirus (PCR) Hepatitis C Antibody Crossmatch 05/24/21 05/25/21 05/25/21 09:55 04:25 04:25 WBC 13.8 H RBC 2.78 L Hgb 8.3 L Hct 25.6 L MCV MCHC RDW 16.2 H Lymph % (Auto) [place] % (Auto) Lymph # (Auto) [place] # (Auto) Seg Neutrophils % Seg Neuts % (Manual) Lymphocytes % (Manual) Monocytes % (Manual) Seg Neutrophils # Seg Neutrophils # Man Lymphocytes # (Manual) Monocytes # (Manual) Haptoglobin PT APTT D-Dimer Heparin Anti-Xa Level ABG pH ABG pO2 141.9 H ABG HCO3 ABG O2 Saturation ABG Base Excess ABG Hemoglobin 6.5 L Oxyhemoglobin Sodium Potassium Chloride Carbon Dioxide BUN 76 H Creatinine 2.6 H Glucose 110 H POC Glucose Calcium 8.1 L Phosphorus Magnesium Iron TIBC Ferritin Total Bilirubin AST ALT Lactate Dehydrogenase Total Creatine Kinase Troponin T C-Reactive Protein Albumin Urine WBC (Auto) Urine Creatinine Urine Total Protein Complement C3 Coronavirus (PCR) Hepatitis C Antibody Crossmatch 05/25/21 05/25/21 05/25/21 05:19 09:40 17:11 WBC RBC Hgb Hct MCV MCHC RDW Lymph % (Auto) [place] % (Auto) Lymph # (Auto) [place] # (Auto) Seg Neutrophils % Seg Neuts % (Manual) Lymphocytes % (Manual) Monocytes % (Manual) Seg Neutrophils # Seg Neutrophils # Man Lymphocytes # (Manual) Monocytes # (Manual) Haptoglobin PT APTT D-Dimer Heparin Anti-Xa Level ABG pH ABG pO2 150.9 H ABG HCO3 ABG O2 Saturation ABG Base Excess ABG Hemoglobin 7.0 L Oxyhemoglobin Sodium Potassium Chloride Carbon Dioxide BUN Creatinine Glucose POC Glucose 123 H 108 H Calcium Phosphorus Magnesium Iron TIBC Ferritin Total Bilirubin AST ALT Lactate Dehydrogenase Total Creatine Kinase Troponin T C-Reactive Protein Albumin Urine WBC (Auto) Urine Creatinine Urine Total Protein Complement C3 Coronavirus (PCR) Hepatitis C Antibody Crossmatch 05/25/21 05/26/21 05/26/21 23:37 05:02 07:09 WBC RBC Hgb Hct MCV MCHC RDW Lymph % (Auto) [place] % (Auto) Lymph # (Auto) [place] # (Auto) Seg Neutrophils % Seg Neuts % (Manual) Lymphocytes % (Manual) Monocytes % (Manual) Seg Neutrophils # Seg Neutrophils # Man Lymphocytes # (Manual) Monocytes # (Manual) Haptoglobin PT APTT D-Dimer Heparin Anti-Xa Level ABG pH ABG pO2 ABG HCO3 ABG O2 Saturation ABG Base Excess ABG Hemoglobin Oxyhemoglobin Sodium Potassium Chloride Carbon Dioxide BUN 62 H Creatinine 2.1 H Glucose 112 H POC Glucose 117 H 112 H Calcium 8.2 L Phosphorus Magnesium Iron TIBC Ferritin Total Bilirubin AST ALT Lactate Dehydrogenase Total Creatine Kinase Troponin T C-Reactive Protein Albumin Urine WBC (Auto) Urine Creatinine Urine Total Protein Complement C3 Coronavirus (PCR) Hepatitis C Antibody Crossmatch 05/26/21 05/26/21 05/26/21 07:09 09:10 09:50 WBC 15.8 H RBC 3.21 L Hgb 9.2 L Hct 29.6 L MCV MCHC 31 L RDW 16.6 H Lymph % (Auto) [place] % (Auto) Lymph # (Auto) [place] # (Auto) Seg Neutrophils % Seg Neuts % (Manual) Lymphocytes % (Manual) Monocytes % (Manual) Seg Neutrophils # Seg Neutrophils # Man Lymphocytes # (Manual) Monocytes # (Manual) Haptoglobin PT APTT D-Dimer Heparin Anti-Xa Level ABG pH ABG pO2 135.5 H ABG HCO3 ABG O2 Saturation ABG Base Excess ABG Hemoglobin 9.6 L Oxyhemoglobin Sodium Potassium Chloride Carbon Dioxide BUN Creatinine Glucose POC Glucose Calcium Phosphorus Magnesium Iron TIBC Ferritin Total Bilirubin AST ALT Lactate Dehydrogenase Total Creatine Kinase Troponin T C-Reactive Protein Albumin Urine WBC (Auto) 38.0 H Urine Creatinine Urine Total Protein Complement C3 Coronavirus (PCR) Hepatitis C Antibody Crossmatch 05/26/21 05/26/21 05/27/21 11:20 18:24 00:24 WBC RBC Hgb Hct MCV MCHC RDW Lymph % (Auto) [place] % (Auto) Lymph # (Auto) [place] # (Auto) Seg Neutrophils % Seg Neuts % (Manual) Lymphocytes % (Manual) Monocytes % (Manual) Seg Neutrophils # Seg Neutrophils # Man Lymphocytes # (Manual) Monocytes # (Manual) Haptoglobin PT APTT D-Dimer Heparin Anti-Xa Level ABG pH ABG pO2 ABG HCO3 ABG O2 Saturation ABG Base Excess ABG Hemoglobin Oxyhemoglobin Sodium Potassium Chloride Carbon Dioxide BUN Creatinine Glucose POC Glucose 109 H 116 H 115 H Calcium Phosphorus Magnesium Iron TIBC Ferritin Total Bilirubin AST ALT Lactate Dehydrogenase Total Creatine Kinase Troponin T C-Reactive Protein Albumin Urine WBC (Auto) Urine Creatinine Urine Total Protein Complement C3 Coronavirus (PCR) Hepatitis C Antibody Crossmatch 05/27/21 05/27/21 05/27/21 05:12 07:47 07:47 WBC 15.5 H RBC 2.86 L Hgb 8.8 L Hct 26.1 L MCV MCHC RDW 16.1 H Lymph % (Auto) [place] % (Auto) Lymph # (Auto) [place] # (Auto) Seg Neutrophils % Seg Neuts % (Manual) Lymphocytes % (Manual) Monocytes % (Manual) Seg Neutrophils # Seg Neutrophils # Man Lymphocytes # (Manual) Monocytes # (Manual) Haptoglobin PT APTT D-Dimer Heparin Anti-Xa Level ABG pH ABG pO2 ABG HCO3 ABG O2 Saturation ABG Base Excess ABG Hemoglobin Oxyhemoglobin Sodium Potassium Chloride 107.3 H Carbon Dioxide BUN 56 H Creatinine 1.8 H Glucose 108 H POC Glucose 108 H Calcium 8.1 L Phosphorus Magnesium Iron TIBC Ferritin Total Bilirubin AST ALT Lactate Dehydrogenase Total Creatine Kinase Troponin T C-Reactive Protein Albumin Urine WBC (Auto) Urine Creatinine Urine Total Protein Complement C3 Coronavirus (PCR) Hepatitis C Antibody Crossmatch 05/27/21 09:20 WBC RBC Hgb Hct MCV MCHC RDW Lymph % (Auto) [place] % (Auto) Lymph # (Auto) [place] # (Auto) Seg Neutrophils % Seg Neuts % (Manual) Lymphocytes % (Manual) Monocytes % (Manual) Seg Neutrophils # Seg Neutrophils # Man Lymphocytes # (Manual) Monocytes # (Manual) Haptoglobin PT APTT D-Dimer Heparin Anti-Xa Level ABG pH ABG pO2 115.2 H ABG HCO3 ABG O2 Saturation ABG Base Excess ABG Hemoglobin 9.2 L Oxyhemoglobin Sodium Potassium Chloride Carbon Dioxide BUN Creatinine Glucose POC Glucose Calcium Phosphorus Magnesium Iron TIBC Ferritin Total Bilirubin AST ALT Lactate Dehydrogenase Total Creatine Kinase Troponin T C-Reactive Protein Albumin Urine WBC (Auto) Urine Creatinine Urine Total Protein Complement C3 Coronavirus (PCR) Hepatitis C Antibody Crossmatch Chest x-ray: pending Allied health notes reviewed: nursing
[2021-05-27] MEDS ORDERED: VANCOMYCIN 1,750 MG in SODIUM CHLORIDE 0.9% 500 ML 500 ML IV ONE (14:00)
[2021-05-27] MEDS ORDERED: SODIUM CHLORIDE 0.9% 500 ML 500 ML ONE (14:16)
--- NOTE | 2021-05-27 14:42 | Progress Note ---
Assessment and Plan Assessment and plan: This is a 56-year-old male with nicotine and cocaine abuse, atrial fibrillation, hypertension and chronic medication noncompliance complicated by homelessness admitted with acute hypoxic respiratory failure, COVID-19 pneumonia, transaminitis, NSTEMI, hypertensive emergency and acute kidney injury A/P Neuro: Metabolic encephalopathy, polysubstance abuse (but amphetamine and tobacco) -Sedated with fentanyl drip -Goal RASS 0 to -1 -On CIWA protocol -Librium and Seroquel taper started 05/25 -Maintain sleep-wake cycle -Monitor QTc -Avoid delirium -UDS positive for amphetamines -We will need cessation counseling when appropriate -fent patch x1- trial dose Cardio: Heart failure reduced EF, cardiomyopathy, NSTEMI, paroxysmal atrial fibrillation, S/p hypertensive emergency, h/o HTN -Continue beta-sylvia, aspirin, statin, hydral, titrate as needed -Cardiology consulted, appreciate recommendations -Echo 05/04/2021-EF 35 to 40%. Moderate concentric LVH. Moderate global hypokinesis of left ventricle. Mild mitral regurgitation. Mild pulmonary hype rtension. Echocardiogram reviewed (08/27/2020): LVEF is 50 to 55%. Mild to moderate concentric LVF. Severe diastolic dysfunction is present (restrictive filling). Right ventricle is mildly hypokinetic. RVSP is 48 mmHg. No valvular abnormalities. -S/p Cardizem drip for atrial fibrillation -Blood pressure monitoring per protocol Respiratory: Acute hypoxic respiratory failure -[facility] consulted, appreciate recommendations -Intubated on 05/05 in the ED and extubated 05/13, Re-intubated on 05/16 and Extubated on 05/18 -Reintubated 05/23 with 8.0 OETT at 22 cm at the lips -s/p bipap -A.m. vent settings: Assist control tidal volume 450, rate 16, PEEP 8, FiO2 30% -AM ABG noted -VAP bundle -Continues SPO2 monitoring GI: ? GIB, Transaminitis, h/o hepatitis C -GI consulted, appreciate recommendations -IV Protonix BID -s/p Protonix gtt -24-hour +[id number] -BR: Senokot -Renal ultrasound showed incidental finding of cholelithiasis -Continue supportive management -Trend LFTs : Acute kidney injury likely secondary to vasomotor nephropathy -Nephrology consulted, appreciate recommendations -IVF per nephrology -Avoid nephrotoxic medications -Renally dose medication -Strict intake and output -FeNa indicates prerenal -Renal ultrasound completed: 1.7 hyper echoic mass within the left upper pole -Monitor follow-up with CT once stable ID: Severe COVID-19 pneumonia, Enterobacter aerogenes PNA, s/p Enterococcus faec shahriar UTI -Infectious disease consulted, appreciate recommendations -COVID-19 PCR positive -s/p droplet/precautions for 21 days -Not a candidate for remdesivir given acute kidney injury -s/p Dexamethasone for 10 days -Anticoagulation per hospital protocol -Trend COVID-19 from 2 markers (ferritin, D-dimer, CRP, LDH) -05/09 urine culture with Enterococcus faecalis -05/16 tracheal aspirate with Enterobacter aerogenes -Due to persistent fevers switched cefepime to IV ertapenem renally adjusted 05/24 -GC negative -f/u culture data -re-cultured 05/26 Heme: Anemia, Acute DVT (resolved) -Bilateral lower extremity Doppler ultrasound shows acute DVT -heparin gtt converted to DOAC but now d/c -vascular surgery consulted for possible IVC filter placement, appreciate r ecommendations -repeat doppler shows no DVT -recommends subq heparin TID for prophylaxis if tolerated -Repeat BLE US tomorrow per [facility] -Pulmonary perfusion study showed low probability of pulmonary embolism -S/p 3 unit PRBC -Trend CBC -Transfuse for hemoglobin less than 7 Endo: NAD -Accu-Cheks every 6 -SSI -Avoid hypoglycemia The high probability of a clinically significant, sudden or life threatening deterioration of the [cardio/resp] system(s) required my full and direct attention, intervention and personal management. The aggregate critical care time was [60] minutes. This time is in addition to time spent performing reported procedures but includes the following: [x] Data Review and interpretation [x] Patient assessment and monitoring of vital signs [x] Documentation [x] Medication orders and management History Interval history: This is a 56-year-old male with a nicotine abuse, A. fib, hypertension, and chronic medication noncompliance and homelessness who presented to emergency department on 05/04 with complaints of dyspnea on exertion for the past month worsening over the past 3 days, intermittent left-sided chest tightness with activity, and persistent cough without fever. Work-up in the emergency department revealed anemia, hyponatremia, elevated BUN/creatinine and transaminitis. Patient was admitted to the hospitalist service with acute kidney injury and accelerated hypertension. Hospital course to date 05/04/2021. 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 However, patient with elevated creatinine therefore will hold off on cath evaluation. Nephrology consultation for acute kidney injury. Etiology likely secondary to vasomotor nephropathy/dehydration. We will start IV fluid hydration. Check renal ultrasound to rule out obstructive uropathy. We will resume home medications for the accelerated hypertension 05/05/2021. Echocardiogram reveals EF 35-40% with moderate concentric left ventricular hypertrophy. Moderate global hypokinesis of left ventricle. Mild m itral regurgitation. Mild pulmonary hypertension. Troponins are believed to be elevated in the setting of acute kidney injury. No beta-blockers due to cocaine use continue heparin and nitro drip. Continue CIWA protocol. Await urine studies 05/06/2021. Patient decompensated yesterday with worsening respiratory failure and difficulty to protect airway. Patient was breathing sonorously, and h ypoxic. Patient was intubated and currently is on mechanical ventilation. Patient with AC mode ventilation rate of 20, tidal volume 450, FiO2 40% and PEEP of 6. COVID PCR testing on 05/05/2021 was found to be positive. Echocardiogram completed on this admission shows worsening EF from August 2020. Echocardiogram now reveals moderate concentric left ventricular hypertrophy with moderate global hypokinesis and EF of 35-40%. Mild pulmonary hypertension. 05/08: Continue current management, renal stable, LFTs stable and if improved will start on statin therapy. 05/09: Patient is febrile, will panculture, PSV today. CRP pending. Mucoid discharge noted from meatus which was sent for culture. Hypernatremia persists, free water flushes increased 05/10: PSV trial per [facility], T-max 102.3, given mildly elevated procalcitonin started on ceftriaxone 2 g every 24 for 2 days per ID. Overnight patient had atrial fibrillation which was treated with Cardizem drip and converted to sinus rhythm. Metoprolol p.o. increased to 3 times daily. 05/11: Patient still running fevers and if still febrile tomorrow will escalate to cefepime per ID as he is currently on ceftriaxone, [facility] attempted PSV but patient became agitated and was switched back to pressure control. Lower extremity ultrasound shows acute DVT and started on heparin drip. Started on scheduled Librium. Patient remains with hypernatremia and elevated creatinine and on IV fluids. Free water flushes adjusted. Started on vancomycin today 05/12: Patient placed on pressure support trial without fentanyl, hypernatremia improving, hyperkalemia noted. Slight improvement to renal function. 05/13: Patient was extubated today, ID change antibiotics to Zosyn for Enterococcus, was started tapering Librium in the morning, renal function slig htly improved. Possible transfer to floor tomorrow. ST evaluation for swallow ordered. 05/14: Patient became hypoglycemic overnight and started on dextrose IV fluids. Accu-Chek fingersticks have been low but on a.m. BMP patient blood glucose is 100. Other BMP pending. Feeding tube replaced due to need for enteral access and patient being severely confused. Renal functions remains the same. Upon confirmation will restart tube feedings, p.o. medications and free water flushes. 05/15: Remains confused/somnolent on my encounter. Librium taper in 24hrs per PCCM recs. Remains hypertensive. Added amlodipine 10 mg NG and labetalol prn. ST eval today but doubt he will participate. Potassium replaced. Renal function improving overall, however, hypernatremic. Inc TF FWF to 250 cc q4hr. 05/16: Respiratory distress this AM, hypoxic in 60's not protecting airway. Required intubation, patient now ICU patient. Reduce fluid to FWF only, IVF d/c off jun. CXR ordered demonstrates pulmonary edema. Lasix 40 mg IV bid ordered. Troponin elevated, continue heparin gtt. Would recommend decreasing sedating medications at this point, agree with librium taper. 05/17: Patient remains on the vent and sedated, RASS -3. Plan for possible sedation vacation today. D/w [facility] plan to wean for possible extubation on the vent. 2/2: Tolerated 4hrs of sedation vacation yesterday, on low dose fentanyl this am. Patient is tolerating PST this am. Plan to wean off sedation and wean vent setting for possible extubation today. 23: s/p extubation now stable on 3L NC. Lethargic this am, will decreased Seroquel. Speech consult for swallow eval, continue enteral nutrition via NGT for now. Hypertensive throughout the night, Norvac added. Remains on heparin gtt for DVT, might need to transition to PO AC, will d/w CCM. Patient is stable for transfer to [facility] 05/20: Continue sepsis work up considering fever, aspiration precautions. Discussed with nursing staff will hold am seroquel. Continue tube feed. RENAL Function remains relatively stable, possible has peaked. 05/21: Patient seen and examined, resting but still with mild increase wob, CXR concerning with right lobar infiltrate, continue antibiotics, will give kayxalate in addition due to hyperkalemia, Will discuss with ID due to rising luekocytosis possible worsening sepsis. 05/22: Patient remains on BIPAP, still sedated appearing, cxr concerning for possible aspiration, unfortunately still worsening renal status. Will continue abx and continue collaboration with pulmonary team to ensure no over sedation. Continue abx, will add kayaxlate 05/23: Patient noted to have severe anemia today, will initiate GI work up and also Hemolysis work up. Will discuss with Vascular about possible IVC filter placement. Continue BIPAP, goal is to see if we can avert re-intubation. Transfuse 1 UNIT PRBC, Will discuss with Pulmonary about holding Eliquis for now. Renal failure still ongoing. 05/24: Patient had a positive occult and was anemic again today and received PRBC. GI was consulted. Repeat Dopplers are negative for DVT vascular recommends a CT/SQ heparin if tolerated and nephrology would like to increase IV fluids per FeNa results. Decrease metoprolol, seroquel and librium. surgery consult for trach/peg 05/25: RT decreased FiO2. GI signed off, Cr slightly improved, Anemia improved. Tmax 101.4 noted, abx per ID. 05/26: Patient had a temperature spike and was recultured, no plan today changes made as patient continues to breathe over the vent, one time dose of fent patch, repeat dopllar in 1 week per ccm, miralax q hs 05/27: Added vancomycin per ID, started CPAP trials, prophylactic heparin, IV fluids stopped per ID. Hospitalist Physical - Constitutional Vitals: Temp Pulse Resp BP Pulse Ox 100.2 F H 69 22 98/61 98 05/27/21 07:46 05/27/21 10:00 05/27/21 10:00 05/27/21 10:00 05/27/21 10:00 General appearance: Present: no acute distress - EENT Eyes: Present: PERRL, EOM intact ENT: dentition normal - Neck Neck: Present: normal ROM - Respiratory Respiratory effort: normal Respiratory: bilateral: diminished - Cardiovascular Rhythm: regular Heart Sounds: Present: S1 & S2. Absent: systolic murmur, diastolic murmur - Extremities Extremities: no ischemia, pulses intact, pulses symmetrical, No edema, normal temperature, normal color Peripheral Pulses: within normal limits - Abdominal General gastrointestinal: soft, non-tender, non-distended, normal bowel sounds - Integumentary Integumentary: Present: warm, dry - Psychiatric Psychiatric: other (sedated) - Neurologic Neurologic: moves all extremities - Allied Health Allied health notes reviewed: nursing, RT, social work HEART Score - HEART Score EKG: Non-specific Age: 45-65 Risk factors: 1-2 risk factors Troponin: Troponin T 0.400 ng/mL (0.00-0.029) H* D 05/16/21 18:40 Troponin: 1-3x normal limit - Critical Actions Critical Actions: 4-6 pts:12-16.6% risk of adverse cardiac event. Should be admitted Results - Labs CBC & Chem 7: 05/27/21 07:47 05/27/21 07:47 Labs: Laboratory Last Values WBC 15.5 K/mm3 (4.5-11.0) H 05/27/21 07:47 RBC 2.86 M/mm3 (3.65-5.03) L 05/27/21 07:47 Hgb 8.8 gm/dl (11.8-15.2) L 05/27/21 07:47 Hct 26.1 % (35.5-45.6) L 05/27/21 07:47 MCV 91 fl (84-94) 05/27/21 07:47 MCH 31 pg (28-32) 05/27/21 07:47 MCHC 34 % (32-34) 05/27/21 07:47 RDW 16.1 % (13.2-15.2) H 05/27/21 07:47 Plt Count 367 K/mm3 (140-440) 05/27/21 07:47 Lymph % (Auto) Hand Coremaker 05/16/21 10:21 [place] % (Auto) Hand Coremaker 05/16/21 10:21 Eos % (Auto) Hand Coremaker 05/16/21 10:21 Baso % (Auto) Hand Coremaker 05/16/21 10:21 Lymph # (Auto) Hand Coremaker 05/16/21 10:21 [place] # (Auto) Hand Coremaker 05/16/21 10:21 Eos # (Auto) Hand Coremaker 05/16/21 10:21 Baso # (Auto) Hand Coremaker 05/16/21 10:21 Add Manual Diff Complete 05/16/21 10:21 Total Counted 100 05/16/21 10:21 Seg Neutrophils % Hand Coremaker 05/16/21 10:21 Seg Neuts % (Manual) 83.0 % (40.0-70.0) H 05/16/21 10:21 Band Neutrophils % 2.0 % 05/16/21 10:21 Lymphocytes % (Manual) 4.0 % (13.4-35.0) L 05/16/21 10:21 Reactive Lymphs % (Man) 0 % 05/16/21 10:21 Monocytes % (Manual) 9.0 % (0.0-7.3) H 05/16/21 10:21 Eosinophils % (Manual) 0 % (0.0-4.3) 05/16/21 10:21 Basophils % (Manual) 0 % (0.0-1.8) 05/16/21 10:21 Metamyelocytes % 0 % 05/16/21 10:21 Myelocytes % 2.0 % 05/16/21 10:21 Promyelocytes % 0 % 05/16/21 10:21 Blast Cells % 0 % 05/16/21 10:21 Nucleated RBC % Not Reportable 05/16/21 10:21 Seg Neutrophils # Hand Coremaker 05/16/21 10:21 Seg Neutrophils # Man 22.9 K/mm3 (1.8-7.7) H 05/16/21 10:21 Band Neutrophils # 0.6 K/mm3 05/16/21 10:21 Lymphocytes # (Manual) 1.1 K/mm3 (1.2-5.4) L 05/16/21 10:21 Abs React Lymphs (Man) 0.0 K/mm3 05/16/21 10:21 Monocytes # (Manual) 2.5 K/mm3 (0.0-0.8) H 05/16/21 10:21 Eosinophils # (Manual) 0.0 K/mm3 (0.0-0.4) 05/16/21 10:21 Basophils # (Manual) 0.0 K/mm3 (0.0-0.1) 05/16/21 10:21 Metamyelocytes # 0.0 K/mm3 05/16/21 10:21 Myelocytes # 0.6 K/mm3 05/16/21 10:21 Promyelocytes # 0.0 K/mm3 05/16/21 10:21 Blast Cells # 0.0 K/mm3 05/16/21 10:21 WBC Morphology Not Reportable 05/16/21 10:21 Hypersegmented Neuts Not Reportable 05/16/21 10:21 Hyposegmented Neuts Not Reportable 05/16/21 10:21 Hypogranular Neuts Not Reportable 05/16/21 10:21 Smudge Cells Not Reportable 05/16/21 10:21 Toxic Granulation Not Reportable 05/16/21 10:21 Toxic Vacuolation Not Reportable 05/16/21 10:21 Dohle Bodies Not Reportable 05/16/21 10:21 Pelger-Huet Anomaly Not Reportable 05/16/21 10:21 Jesse Rods Not Reportable 05/16/21 10:21 Platelet Estimate Consistent w auto 05/16/21 10:21 Clumped Platelets Few 05/16/21 10:21 Plt Clumps, EDTA Not Reportable 05/16/21 10:21 Large Platelets Not Reportable 05/16/21 10:21 Giant Platelets Not Reportable 05/16/21 10:21 Platelet Satelliting Not Reportable 05/16/21 10:21 Plt Morphology Comment Not Reportable 05/16/21 10:21 RBC Morphology Not Reportable 05/16/21 10:21 Dimorphic RBCs Not Reportable 05/16/21 10:21 Polychromasia Not Reportable 05/16/21 10:21 Hypochromasia Not Reportable 05/16/21 10:21 Poikilocytosis Not Reportable 05/16/21 10:21 Anisocytosis 1+ 05/16/21 10:21 Microcytosis Not Reportable 05/16/21 10:21 Macrocytosis Few 05/16/21 10:21 Spherocytes Not Reportable 05/16/21 10:21 Pappenheimer Bodies Not Reportable 05/16/21 10:21 Sickle Cells Not Reportable 05/16/21 10:21 Target Cells Not Reportable 05/16/21 10:21 Tear Drop Cells Not Reportable 05/16/21 10:21 Ovalocytes Not Reportable 05/16/21 10:21 Helmet Cells Not Reportable 05/16/21 10:21 Murphy-Graball Bodies Not Reportable 05/16/21 10:21 [place] Rings Not Reportable 05/16/21 10:21 Laotto Cells Not Reportable 05/16/21 10:21 Bite Cells Not Reportable 05/16/21 10:21 Crenated Cell Not Reportable 05/16/21 10:21 Elliptocytes Not Reportable 05/16/21 10:21 Acanthocytes (Spur) Not Reportable 05/16/21 10:21 Rouleaux Not Reportable 05/16/21 10:21 Hemoglobin C Crystals Not Reportable 05/16/21 10:21 Schistocytes Not Reportable 05/16/21 10:21 Malaria parasites Not Reportable 05/16/21 10:21 Tomi Bodies Not Reportable 05/16/21 10:21 Haptoglobin 254 mg/dL (43-212) H 05/23/21 18:54 Hem Pathologist Commnt No 05/16/21 10:21 PT 14.9 Sec. (12.2-14.9) 05/25/21 04:25 INR 1.05 (0.87-1.13) 05/25/21 04:25 APTT 72.5 Sec. (24.2-36.6) H* 05/19/21 19:36 D-Dimer 2730.61 ng/mlDDU (0-234) H 05/12/21 07:19 Heparin Anti-Xa Level 0.47 U.I./ml (0.3-0.7) 05/19/21 05:23 ABG pH 7.443 pH Units (7.350-7.450) 05/27/21 09:20 ABG pCO2 38.8 mm Hg 05/27/21 09:20 ABG pO2 115.2 mm Hg (80.0-90.0) H 05/27/21 09:20 ABG HCO3 25.9 mmol/L (20.0-26.0) 05/27/21 09:20 ABG O2 Saturation 98.3 % (95.0-99.0) 05/27/21 09:20 ABG O2 Content 12.5 (0.0-44) 05/27/21 09:20 ABG Base Excess 1.7 mmol/L (-2.0-3.0) 05/27/21 09:20 ABG Hemoglobin 9.2 gm/dl (14.0-18.0) L 05/27/21 09:20 ABG Carboxyhemoglobin 2.2 % (0.0-5.0) 05/27/21 09:20 ABG Methemoglobin 0.7 % (0.0-1.5) 05/27/21 09:20 Oxyhemoglobin 95.4 % (95.0-99.0) 05/27/21 09:20 FiO2 30 % 05/27/21 09:20 Sodium 142 mmol/L (137-145) 05/27/21 07:47 Potassium 4.4 mmol/L (3.6-5.0) 05/27/21 07:47 Chloride 107.3 mmol/L (98-107) H 05/27/21 07:47 Carbon Dioxide 23 mmol/L (22-30) 05/27/21 07:47 Anion Gap 16 mmol/L 05/27/21 07:47 BUN 56 mg/dL (9-20) H 05/27/21 07:47 Creatinine 1.8 mg/dL (0.8-1.3) H 05/27/21 07:47 Estimated GFR 39 ml/min 05/27/21 07:47 BUN/Creatinine Ratio 31 % 05/27/21 07:47 Glucose 108 mg/dL (75-100) H 05/27/21 07:47 POC Glucose 104 mg/dL (70-105) 05/27/21 12:11 Lactic Acid 0.90 mmol/L (0.7-2.0) 05/20/21 09:17 Calcium 8.1 mg/dL (8.4-10.2) L 05/27/21 07:47 Phosphorus 3.70 mg/dL (2.5-4.5) D 05/25/21 04:25 Magnesium 2.30 mg/dL (1.7-2.3) 05/25/21 04:25 Iron 10 ug/dL (49-181) L 05/23/21 Unknown TIBC 151 mcg/dL (250-450) L 05/23/21 Unknown Ferritin 640.2 ng/mL (30.0-300.0) H 05/12/21 07:19 Total Bilirubin 0.50 mg/dL (0.1-1.2) 05/24/21 04:11 AST 152 units/L (5-40) H 05/24/21 04:11 ALT 125 units/L (7-56) H 05/24/21 04:11 Alkaline Phosphatase 72 units/L (35-129) 05/24/21 04:11 Lactate Dehydrogenase 311 units/L (91-180) H 05/23/21 Unknown Total Creatine Kinase 406 units/L (55-170) H 05/04/21 08:42 Troponin T 0.400 ng/mL (0.00-0.029) H* D 05/16/21 18:40 C-Reactive Protein 1.60 mg/dL (0.00-1.30) H 05/12/21 07:19 Total Protein 6.6 g/dL (6.3-8.2) 05/24/21 04:11 Albumin 2.5 g/dL (3.9-5) L 05/24/21 04:11 Albumin/Globulin Ratio 0.6 % 05/24/21 04:11 Triglycerides 144 mg/dL (2-149) 05/10/21 04:57 Cholesterol 140 mg/dL (50-199) 05/04/21 07:25 LDL Cholesterol Direct 89 mg/dL (50-130) 05/04/21 07:25 HDL Cholesterol 48 mg/dL (40-59) 05/04/21 07:25 Cholesterol/HDL Ratio 2.91 % 05/04/21 07:25 Procalcitonin 0.63 ng/mL (<0.15) 05/09/21 15:53 Urine Color Yellow (Yellow) 05/26/21 09:50 Urine Turbidity Turbid (Clear) 05/26/21 09:50 Urine pH 5.0 (5.0-7.0) 05/26/21 09:50 Ur Specific Booker 1.014 (1.003-1.030) 05/26/21 09:50 Urine Protein 30 mg/dl mg/dL (Negative) 05/26/21 09:50 Urine Glucose (UA) Neg mg/dL (Negative) 05/26/21 09:50 Urine Ketones Neg mg/dL (Negative) 05/26/21 09:50 Urine Blood Sm (Negative) 05/26/21 09:50 Urine Nitrite Neg (Negative) 05/26/21 09:50 Urine Bilirubin Neg (Negative) 05/26/21 09:50 Urine Urobilinogen < 2.0 mg/dL (<2.0) 05/26/21 09:50 Ur Leukocyte Esterase Tr (Negative) 05/26/21 09:50 Urine WBC (Auto) 38.0 /HPF (0.0-6.0) H 05/26/21 09:50 Urine RBC (Auto) 5.0 /HPF (0.0-6.0) 05/26/21 09:50 U Epithel Cells (Auto) 1.0 /HPF (0-13.0) 05/23/21 16:30 Urine Bacteria (Auto) 1+ /HPF (Negative) 05/23/21 16:30 Uric Acid Crystals Few 05/09/21 00:40 Triple Phos Crystals 2+ 05/09/21 13:22 Amorphous Crystals 3+ 05/26/21 09:50 Granular Casts 20 /LPF 05/26/21 09:50 Urine Mucus Few /HPF 05/23/21 16:30 Urine Creatinine 100.1 mg/dL (0.1-20.0) H 05/23/21 16:30 Protein/Creatinin Ratio 0.42 05/10/21 11:03 Urine Sodium 25 mmol/L 05/23/21 16:30 Fraction Sodium Excret 0.3 05/23/21 16:30 Urine Total Protein 42 mg/dL (5-11.8) H 05/10/21 11:03 Urine Opiates Screen Negative 05/04/21 Unknown Urine Methadone Screen Negative 05/04/21 Unknown Ur Barbiturates Screen Negative 05/04/21 Unknown Ur Phencyclidine Scrn Negative 05/04/21 Unknown Ur Amphetamines Screen Positive 05/04/21 Unknown U Benzodiazepines Scrn Negative 05/04/21 Unknown Urine Cocaine Screen Negative 05/04/21 Unknown U Marijuana (THC) Screen Negative 05/04/21 Unknown Drugs of Abuse Note Disclamer 05/04/21 Unknown Immunofix Electrophor see below 05/05/21 03:40 AUDRA Screen Negative (Negative) 05/05/21 03:40 Proteinase 3 (PR3) Ab <1.0 AI (<1.0) 05/05/21 03:40 Myeloperoxidase Ab <1.0 AI (<1.0) 05/05/21 03:40 Complement C3 72 mg/dL (82-185) L 05/05/21 03:40 Complement C4 17 mg/dL (15-53) 05/05/21 03:40 Coronavirus (PCR) Positive (Negative) A 05/05/21 08:30 Hepatitis A IgM Ab Non-reactive (NonReactive) 05/05/21 03:40 Hep Bs Antigen Non-reactive (Negative) 05/05/21 03:40 Hep B Core IgM Ab Non-reactive (NonReactive) 05/05/21 03:40 Hepatitis C Antibody Reactive (NonReactive) A 05/05/21 03:40 Blood Type O POSITIVE 05/23/21 07:12 Antibody Screen Negative 05/23/21 07:12 Crossmatch See Detail 05/23/21 07:12 Microbiology: Microbiology 05/26/21 09:50 Urine,Clean Catch Urine Culture - Preliminary NO GROWTH AFTER 24 HOURS 05/23/21 14:50 Tracheal Aspirate Sputum Culture - Final Enterobacter Aerogenes 05/26/21 12:59 Peripheral/Venous Blood Culture - Preliminary Culture in Progress 05/26/21 12:59 Peripheral/Venous Blood Culture - Preliminary Culture in Progress 05/21/21 03:12 Peripheral/Venous Blood Culture - Final NO GROWTH AFTER 5 DAYS 05/21/21 02:22 Peripheral/Venous Blood Culture - Final NO GROWTH AFTER 5 DAYS Merino/IV: Voiding Method Indwelling Catheter Active Medications - Current Medications Current Medications: Generic Name Dose Route Start Last Admin Trade Name Freq PRN Reason Stop Dose Admin Acetaminophen 650 mg 05/04/21 12:34 05/27/21 08:59 Acetaminophen 325 Mg Tab PO 650 mg Q4H PRN Administration Pain MILD(1-3)/Fever >100.5/MARIA Acetaminophen 650 mg 05/07/21 16:00 05/11/21 16:25 Acetaminophen 650 Mg Rect Supp [place] 650 mg Q4H PRN Administration Pain, Mild (1-3) Atorvastatin Calcium 40 mg 05/09/21 22:00 05/26/21 21:18 Atorvastatin 40 Mg Tab FEEDTUBE 40 mg QHS RISHI Administration Chlordiazepoxide HCl 50 mg 05/24/21 20:00 05/27/21 13:22 Chlordiazepoxide 25 Mg Cap PO 05/27/21 19:59 50 mg TID RISHI Administration Chlordiazepoxide HCl 25 mg 05/27/21 20:00 Chlordiazepoxide 25 Mg Cap PO 05/30/21 19:59 TID RISHI Dextrose 0 ml 05/09/21 10:49 05/14/21 06:55 Dextrose 10% *Hypoglycemia IV 250 ml PRN PRN Administration Hypoglycemia Fentanyl 50 mcg 05/23/21 15:00 Fentanyl 100 Mcg/2 Ml Inj IV Q10MIN PRN ANALGESIA Haloperidol Lactate 5 mg 05/09/21 18:32 05/18/21 19:52 Haloperidol Lactate 5 Mg/1 Ml Inj IV 5 mg Q6H PRN Administration Agitation Heparin Sodium (Porcine) 5,000 unit 05/27/21 22:00 Heparin 5,000 Unit/1 Ml Vial SUB-Q Q12HR RISHI Hydralazine HCl 50 mg 05/04/21 14:00 05/27/21 08:12 Hydralazine 25 Mg Tab PO 50 mg Q8HR RISHI Administration Hydrophilic Ointment 1 applic 05/05/21 15:21 Lip Therapy Vaseline TP Q2HR PRN Dry Lips Fentanyl Citrate 2,000 mcg in 100 mls @ 4.082 mls/hr 05/23/21 15:00 Fentanyl Drip Premix IV TITR RISHI Protocol 1 MCG/KG/HR Ertapenem 1 gm/ Sodium 50 mls @ 100 mls/hr 05/26/21 14:00 05/27/21 09:01 Chloride IV 05/29/21 10:29 100 mls/hr QDAY RISHI Administration Vancomycin HCl 1,750 mg/ 535 mls @ 333.333 mls/hr 05/27/21 14:00 Sodium Chloride IV 05/27/21 15:36 ONCE ONE Insulin Human Lispro 0 unit 05/10/21 09:40 05/12/21 16:49 Insulin Lispro 100 Unit/Ml SUB-Q 2 unit Q6HR PRN Administration Hyperglycemia Protocol Labetalol HCl 10 mg 05/15/21 10:24 05/25/21 08:15 Labetalol 20 Mg/4 Ml Inj IV 10 mg Q4H PRN Administration sbp> 160. Lansoprazole 30 mg 05/26/21 10:00 05/27/21 09:00 Lansoprazole 30 Mg Solutab FEEDTUBE 30 mg BID RISHI Administration Metoprolol Tartrate 50 mg 05/26/21 08:00 05/27/21 08:12 Metoprolol Tartrate 25 Mg Tab FEEDTUBE 50 mg TID RISHI Administration Multi-Ingred Cream/Lotion/Oil/Oint 1 applic 05/05/21 15:21 Mineral Oil/Petrolatum, White Ophth Oint 3.5 Gm OU Q4HR PRN Dry Eye(s) Ondansetron HCl 4 mg 05/04/21 12:34 05/04/21 21:51 Ondansetron 4 Mg/2 Ml Inj IV 4 mg Q8H PRN Administration Nausea And Vomiting Polyethylene Glycol 17 gm 05/26/21 22:00 05/26/21 21:19 Polyethylene Glycol 3350 17 Gm Powder PO Not Given QHS RISHI Quetiapine Fumarate 100 mg 05/25/21 22:00 05/27/21 09:00 Quetiapine 100 Mg Tab PO 100 mg BID RISHI Administration Senna/Docusate Sodium 1 tab 05/05/21 22:00 05/27/21 09:00 Sennosides/Docusate Sodium 8.6/50 Mg Tab FEEDTUBE Not Given BID RISHI Sodium Chloride 10 ml 05/04/21 22:00 05/26/21 21:38 Sodium Chloride 0.9% 10 Ml Flush Syringe IV 10 ml BID RISHI Administration Sodium Chloride 10 ml 05/04/21 12:34 05/06/21 13:59 Sodium Chloride 0.9% 10 Ml Flush Syringe IV 10 ml PRN PRN Administration LINE FLUSH Sodium Chloride 10 ml 05/09/21 09:46 Sodium Chloride 0.9% 50 Ml Ivpb IV PRN PRN FLUSH Nutrition/Malnutrition Assess - Dietary Evaluation Nutrition/Malnutrition Findings: Nutrition Notes Start: 05/05/21 16:15 Freq: Status: Active Protocol: Document 05/23/21 11:25 ROSAURA (Rec: 05/23/21 11:34 ROSAURA [id number]) Nutrition Notes Initial or Follow up Reassessment Current Diagnosis Acute Kidney Injury, Hypertension,Heart Failure, Respiratory Failure Other Pertinent Diagnosis Severe COVID-19 pneu, metabolic encephalopathy, polysubstance dependence Current Diet TF - Nepro at 60ml/hr Labs/Tests BUN 62 Cr 2.8 K 4.4 (was 5.7 and 5.2 on 05/21 and 05/22, respectively) Pertinent Medications reviewed Height 5 ft 7 in Weight 81.647 kg [place] Body Weight (kg) 67.27 BMI 28.1 Weight Status Overweight Subjective/Other Information [employer] unable to arouse pt on 05/21 and 05/22 for evaluation. Counseling Aide changed TF formula sec to worsening renal function. Pt on BiPap support. Percent of energy/protein needs met: 135% energy 100% pro Burn Absent Trauma Absent #1 Nutrition Diagnosis Inadequate oral intake Diagnosis Progress(for reassessment Continues documentation) Is patient on ventilator? No Is Patient Ambulatory and/or Out of Bed No REE-([place]-confined to bed) [phone] Calculation Used for Recommendations [facility] Additional Notes Pro needs 1.2-2g/k-163g/ day Fluid needs 1ml/kcal Nutrition Intervention Nutrition Support: Decrease Nepro rate to 45ml/hr , as current rate provides excess kcal. Provide 200ml water flush q4h. Kcal 1,944 Protein (gm) 87 Carbohydrates (gm) 174 Fat (gm) 104 Fluid (mL) 785 Fiber (gm) 14 Goal #1 TF tolerance Goal #2 TF to meet at least 75% energy and pro needs Follow-Up By: 05/27/21 Additional Comments F/U: TF tolerance/rate decrease, [employer] evaluation, renal function, resp status
[2021-05-27] MEDS: POLYETHYLENE GLYCOL 3350 17 GM POWDER PO SCH (22:10)
[2021-05-27] MEDS: HEPARIN 5,000 UNIT/1 ML VIAL SUB-Q SCH (22:10)
[2021-05-28] MEDS: ACETAMINOPHEN 325 MG TAB PO PRN ×3 (00:35→13:41)
[2021-05-28 04:27] LABS: Hematocrit 26.5 % (35.5-45.6); Hemoglobin 8.6 gm/dl (11.8-15.2); Mean Corpuscular HGB Conc 33 % (32-34); Mean Corpuscular Volume 92 fl (84-94); Platelet Count 363 K/mm3 (140-440); Red Blood Count 2.87 M/mm3 (3.65-5.03); Red Cell Distribution Width 15.9 % (13.2-15.2)
[2021-05-28 04:36] LABS: Calcium 7.7 mg/dL (8.4-10.2)
[2021-05-28 05:45] LABS: Anisocytosis 1+; Band Neutrophils # (Manual) 0.1 K/mm3; Basophils % (Manual) 0 % (0.0-1.8); Eosinophils % (Manual) 0 % (0.0-4.3); Total Cells Counted 100
[2021-05-28 05:46] LABS: Platelet Estimate Consistent w Auto
[2021-05-28] MEDS: hydrALAZINE 25 MG TAB PO SCH ×3 (05:56→21:09)
[2021-05-28] MEDS: chlordiazePOXIDE 25 MG CAP PO SCH ×3 (08:39→20:44)
[2021-05-28] MEDS: METOPROLOL TARTRATE 25 MG TAB FEEDTUBE SCH ×3 (08:40→20:44)
[2021-05-28] MEDS: LANSOPRAZOLE 30 MG SOLUTAB FEEDTUBE SCH ×2 (10:25→21:09)
[2021-05-28] MEDS: HEPARIN 5,000 UNIT/1 ML VIAL SUB-Q SCH ×2 (10:25→21:09)
[2021-05-28] MEDS: ERTAPENEM 1 GM in SODIUM CHLORIDE 0.9% 50 ML IV SCH (10:25)
[2021-05-28] MEDS: QUEtiapine 100 MG TAB PO SCH (10:26)
[2021-05-28] MEDS: SENNOSIDES/DOCUSATE SODIUM 8.6/50 MG TAB FEEDTUBE SCH ×2 (10:26→21:11)
--- NOTE | 2021-05-28 11:38 | Progress Note ---
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 He is also currently nonoliguric. * Hypernatremia is much improved. * His urine shows 2+ dipstick protein and 3 RBCs per high-power field. Fractional excretion of sodium is 0.3%. * Hyperkalemia has been corrected. Continue to hold diuretics. * Renal ultrasound reviewed - will need follow up CT once stable * Continue antiHTN medications * Cardiology, ICU input noted * Dose medications for renal function * Avoid potential nephrotoxins * Strict I/O * No indication for renal replacement therapy at this time. IV fluid has been discontinued Subjective Date of service: 05/28/21 Principal diagnosis: AHRF; COVID-19 infection; NSTEMI; YE; HFrEF (35-40%); Polysubstance abuse Interval history: Patient remains in ICU. Currently on 25% FiO2. Oxygen saturation is 95%. Merino catheter in place. IV fluid has been discontinued. Objective - Vital Signs Vital signs: Vital Signs - 12hr 05/28/21 05/28/21 05/28/21 00:00 00:32 01:00 Temperature 100.8 F H Pulse Rate 75 73 71 Pulse Rate [ 71 From Monitor] Respiratory 23 20 Rate Blood Pressure 107/68 102/63 109/66 O2 Sat by Pulse 97 97 98 Oximetry 05/28/21 05/28/21 05/28/21 02:00 02:50 03:00 Temperature 99.5 F Pulse Rate 71 70 Pulse Rate [ From Monitor] Respiratory 21 20 Rate Blood Pressure 113/72 116/76 O2 Sat by Pulse 98 97 Oximetry 05/28/21 05/28/21 05/28/21 03:12 04:00 05:00 Temperature Pulse Rate 72 70 74 Pulse Rate [ 71 From Monitor] Respiratory 20 23 Rate Blood Pressure 116/76 127/80 128/74 O2 Sat by Pulse 98 97 97 Oximetry 05/28/21 05/28/21 05/28/21 05:56 06:00 07:00 Temperature Pulse Rate 78 78 82 Pulse Rate [ From Monitor] Respiratory 23 23 Rate Blood Pressure 131/81 133/83 133/81 O2 Sat by Pulse 94 96 Oximetry 05/28/21 05/28/21 05/28/21 07:58 08:00 08:40 Temperature 100.9 F H Pulse Rate 82 82 70 Pulse Rate [ 70 From Monitor] Respiratory 22 Rate Blood Pressure 139/85 139/85 O2 Sat by Pulse 96 96 Oximetry 05/28/21 05/28/21 09:00 10:00 Temperature Pulse Rate 68 69 Pulse Rate [ From Monitor] Respiratory 19 20 Rate Blood Pressure 129/81 134/79 O2 Sat by Pulse 97 97 Oximetry - General Appearance General appearance: well-developed, well-nourished, appears stated age, intubated EENT: PERRL, mucous membranes moist Neck: no JVD, no thyromegaly, no carotid bruit, supple Respiratory: Present: Clear to Ascultation Cardiology: regular, normal heart rate Gastrointestinal: normal, normoactive bowel sounds Integumentary: no rash, other (No edema) - Lab 05/28/21 04:04 05/28/21 04:04 Most recent lab results ABG pH 7.443 pH Units (7.350-7.450) 05/27/21 09:20 ABG pCO2 38.8 mm Hg 05/27/21 09:20 ABG pO2 115.2 mm Hg (80.0-90.0) H 05/27/21 09:20 ABG HCO3 25.9 mmol/L (20.0-26.0) 05/27/21 09:20 ABG O2 Saturation 98.3 % (95.0-99.0) 05/27/21 09:20 Calcium 7.7 mg/dL (8.4-10.2) L 05/28/21 04:04 Phosphorus 3.70 mg/dL (2.5-4.5) D 05/25/21 04:25 Magnesium 2.30 mg/dL (1.7-2.3) 05/25/21 04:25 Urine Creatinine 100.1 mg/dL (0.1-20.0) H 05/23/21 16:30 Urine Sodium 25 mmol/L 05/23/21 16:30 Urine Total Protein 42 mg/dL (5-11.8) H 05/10/21 11:03 Medications & Allergies - Medications Allergies/Adverse Reactions: Allergies No Known Allergies Allergy (Verified 05/08/21 07:47) Home Medications: Home Medications Medication Instructions Recorded Confirmed Last Taken Type Cefpodoxime Proxetil 200 mg PO Q12H #10 tablet 09/11/20 05/19/21 Unknown Rx Famotidine [Pepcid] 20 mg PO BID #30 tablet 04/13/21 05/19/21 Unknown Rx Losartan [Cozaar] 100 mg PO QDAY #60 tablet 04/13/21 05/19/21 Unknown Rx Metoprolol Xl [Metoprolol 25 mg PO QDAY #30 tablet 04/13/21 05/19/21 Unknown Rx SUCCINATE ER TAB] NIFEdipine XL [Procardia Xl] 60 mg PO Q12HR #60 tablet 04/13/21 05/19/21 Unknown Rx hydrALAZINE [Apresoline TAB] 50 mg PO Q8HR #180 tablet 04/13/21 05/19/21 Unknown Rx Active Medications: Generic Name Dose Route Start Last Admin Trade Name Freq PRN Reason Stop Dose Admin Acetaminophen 650 mg 05/04/21 12:34 05/28/21 08:39 Acetaminophen 325 Mg Tab PO 650 mg Q4H PRN Administration Pain MILD(1-3)/Fever >100.5/MARIA Acetaminophen 650 mg 05/07/21 16:00 05/11/21 16:25 Acetaminophen 650 Mg Rect Supp [place] 650 mg Q4H PRN Administration Pain, Mild (1-3) Atorvastatin Calcium 40 mg 05/09/21 22:00 05/27/21 22:10 Atorvastatin 40 Mg Tab FEEDTUBE 40 mg QHS RISHI Administration Chlordiazepoxide HCl 25 mg 05/27/21 20:00 05/28/21 08:39 Chlordiazepoxide 25 Mg Cap PO 05/30/21 19:59 25 mg TID RISHI Administration Dextrose 0 ml 05/09/21 10:49 05/14/21 06:55 Dextrose 10% *Hypoglycemia IV 250 ml PRN PRN Administration Hypoglycemia Fentanyl 50 mcg 05/23/21 15:00 Fentanyl 100 Mcg/2 Ml Inj IV Q10MIN PRN ANALGESIA Haloperidol Lactate 5 mg 05/09/21 18:32 05/18/21 19:52 Haloperidol Lactate 5 Mg/1 Ml Inj IV 5 mg Q6H PRN Administration Agitation Heparin Sodium (Porcine) 5,000 unit 05/27/21 22:00 05/28/21 10:25 Heparin 5,000 Unit/1 Ml Vial SUB-Q 5,000 unit Q12HR RISHI Administration Hydralazine HCl 50 mg 05/04/21 14:00 05/28/21 05:56 Hydralazine 25 Mg Tab PO 50 mg Q8HR RISHI Administration Hydrophilic Ointment 1 applic 05/05/21 15:21 Lip Therapy Vaseline TP Q2HR PRN Dry Lips Fentanyl Citrate 2,000 mcg in 100 mls @ 4.082 mls/hr 05/23/21 15:00 Fentanyl Drip Premix IV TITR RISHI Protocol 1 MCG/KG/HR Ertapenem 1 gm/ Sodium 50 mls @ 100 mls/hr 05/26/21 14:00 05/28/21 10:25 Chloride IV 05/29/21 10:29 100 mls/hr QDAY RISHI Administration Vancomycin HCl 1,250 mg/ 275 mls @ 166.667 mls/hr 05/28/21 16:00 Sodium Chloride IV Q24H [facility] Insulin Human Lispro 0 unit 05/10/21 09:40 05/12/21 16:49 Insulin Lispro 100 Unit/Ml SUB-Q 2 unit Q6HR PRN Administration Hyperglycemia Protocol Labetalol HCl 10 mg 05/15/21 10:24 05/25/21 08:15 Labetalol 20 Mg/4 Ml Inj IV 10 mg Q4H PRN Administration sbp> 160. Lansoprazole 30 mg 05/26/21 10:00 05/28/21 10:25 Lansoprazole 30 Mg Solutab FEEDTUBE 30 mg BID RISHI Administration Metoprolol Tartrate 50 mg 05/26/21 08:00 05/28/21 08:40 Metoprolol Tartrate 25 Mg Tab FEEDTUBE 50 mg TID [facility] Administration Multi-Ingred Cream/Lotion/Oil/Oint 1 applic 05/05/21 15:21 Mineral Oil/Petrolatum, White Ophth Oint 3.5 Gm OU Q4HR PRN Dry Eye(s) Ondansetron HCl 4 mg 05/04/21 12:34 05/04/21 21:51 Ondansetron 4 Mg/2 Ml Inj IV 4 mg Q8H PRN Administration Nausea And Vomiting Polyethylene Glycol 17 gm 05/26/21 22:00 05/27/21 22:10 Polyethylene Glycol 3350 17 Gm Powder PO 17 gm QHS RISHI Administration Quetiapine Fumarate 100 mg 05/25/21 22:00 05/28/21 10:26 Quetiapine 100 Mg Tab PO 100 mg BID RISHI Administration Senna/Docusate Sodium 1 tab 05/05/21 22:00 05/28/21 10:26 Sennosides/Docusate Sodium 8.6/50 Mg Tab FEEDTUBE 1 tab BID RISHI Administration Sodium Chloride 10 ml 05/04/21 22:00 05/28/21 10:26 Sodium Chloride 0.9% 10 Ml Flush Syringe IV 10 ml BID RISHI Administration Sodium Chloride 10 ml 05/04/21 12:34 05/06/21 13:59 Sodium Chloride 0.9% 10 Ml Flush Syringe IV 10 ml PRN PRN Administration LINE FLUSH Sodium Chloride 10 ml 05/09/21 09:46 Sodium Chloride 0.9% 50 Ml Ivpb IV PRN PRN FLUSH
--- NOTE | 2021-05-28 13:09 | Progress Note ---
Assessment and Plan Acute hypoxic resp failure on MVS COVID positive NSTEMI Acute kidney injury Cardiomyopathy EF 35-40% History of hepatitis C Elevated D-dimer. Low probability for PE seen on VQ scan Tobacco abuse Polysubstance abusepatient with positive methamphetamines and has a history of cocaine use Anemia - H&H holding - awaiting trach & PEG - continue care as below otherwise; - daily SAT and SBT assessment as tolerated - continue to wean supplemental oxygen for target O2 sat's > 90% acutely - VAP bundle addressed - continue lung protective strategies - continue bronchodilators with pulmonary hygiene per RT - wean per pulmonary driven protocols otherwise - avoid nephrotoxins, renally dose all medications - continue accuchecks with glycemic control per SSI (While critically ill target blood glucose of 140-180 mg/dL; avoid hypoglycemia) - sedation prn for target RASS 0 to -1 - continue to avoid benzodiazepine's, reduce the possibility of delirium - prn analgesia per CPOT score - Maintenance of sleep-wake cycle, avoid delirium - continue enteral nutritional support at goal rate as tolerated - G.I. & VTE prophylaxis with Pantoprazole and Heparin - PT/OT/ROM exercises - continue mobility protocols for pressure ulcer prophylaxis - Monitor hemodynamics closely - continue other care per attending / other consultants - discharge planning ongoing concurrently COVID SPECIFIC INTERVENTIONS - Appears to have incidental COVID infection- Remdesivir not administered secondary to renal failure - continue systemic steroids for severe COVID-19 infection empirically (Dexamethasone) - follow repeat COVID tests results - zinc and vitamin C supplementation - Monitor inflammatory markers per facility protocol - ferritin, Ddimer, CRP - therapeutic anticoagulation per system Protocol based on d-dimer and clinical considerations (on therapeutic heparin for NSTEMI) - Continue contact and airborne isolation .... Re-evaluate in am & prn CONDITION: CRITICAL PROGNOSIS: GUARDED CODE STATUS: FULL CODE The high probability of a clinically significant, sudden or life-threatening deterioration of the [respiratory, cardiovascular & neurologic] system(s) required my full and direct attention, intervention and personal management. The aggregate critical care time was [35] minutes without overlap. Time includes spent on; [x] Data Review and interpretation [x] Patient assessment and monitoring of vital signs [x] Documentation [x] Medication orders and management Subjective Date of service: 05/28/21 Principal diagnosis: AHRF; COVID-19 infection; NSTEMI; YE; HFrEF (35-40%); Polysubstance abuse Interval history: Patient is seen today for: Acute hypoxemic Resp failure; COVID-19 infection; NSTEMI; YE; HFrEF (35-40%); Polysubstance abuse; Anemia Seen and examined at bedside; 24hour events reviewed; nursing and respiratory care staff consulted; no adverse overnight events reported to me; resting in bed; remains on MVS; still awaiting tracheostomy and unable to locate next of kin; no emesis or overt aspiration, no seizures but AMS is persistent Objective Vital Signs - 12hr 05/28/21 05/28/21 05/28/21 02:00 02:50 03:00 Temperature 99.5 F Pulse Rate 71 70 Pulse Rate [ From Monitor] Respiratory 21 20 Rate Blood Pressure 113/72 116/76 O2 Sat by Pulse 98 97 Oximetry 05/28/21 05/28/21 05/28/21 03:12 04:00 05:00 Temperature Pulse Rate 72 70 74 Pulse Rate [ 71 From Monitor] Respiratory 20 23 Rate Blood Pressure 116/76 127/80 128/74 O2 Sat by Pulse 98 97 97 Oximetry 05/28/21 05/28/21 05/28/21 05:56 06:00 07:00 Temperature Pulse Rate 78 78 82 Pulse Rate [ From Monitor] Respiratory 23 23 Rate Blood Pressure 131/81 133/83 133/81 O2 Sat by Pulse 94 96 Oximetry 05/28/21 05/28/21 05/28/21 07:58 08:00 08:40 Temperature 100.9 F H Pulse Rate 82 82 70 Pulse Rate [ 70 From Monitor] Respiratory 22 Rate Blood Pressure 139/85 139/85 O2 Sat by Pulse 96 96 Oximetry 05/28/21 05/28/21 05/28/21 09:00 10:00 11:00 Temperature Pulse Rate 68 69 69 Pulse Rate [ From Monitor] Respiratory 19 20 21 Rate Blood Pressure 129/81 134/79 107/64 O2 Sat by Pulse 97 97 95 Oximetry 05/28/21 05/28/21 12:00 12:20 Temperature Pulse Rate 74 76 Pulse Rate [ 77 From Monitor] Respiratory 23 Rate Blood Pressure 112/71 115/75 O2 Sat by Pulse 97 95 Oximetry Constitutional: appears uncomfortable, other (middle aged male with mildly increased respiratory effort at rest) Eyes: non-icteric ENT: oropharynx moist, other (ETT 24 cm ELIZABET) Neck: supple, no lymphadenopathy, no JVD Effort: mildly labored Ascultation: Bilateral: diminished breath sounds, rhonchi Percussion: Bilateral: not dull Cardiovascular: regular rate and rhythm, other (S1,S2) Gastrointestinal: normoactive bowel sounds, soft, non-tender, non-distended Integumentary: normal Extremities: no cyanosis, no edema, pulses normal Neurologic: non-focal exam (grossly), pupils equal and round, unable to assess (sedated) Psychiatric: other CBC and BMP: 05/29/21 11:16 05/29/21 11:16 ABG, PT/INR, D-dimer: ABG ABG pH 7.443 pH Units (7.350-7.450) 05/27/21 09:20 ABG pCO2 38.8 mm Hg 05/27/21 09:20 ABG pO2 115.2 mm Hg (80.0-90.0) H 05/27/21 09:20 ABG O2 Saturation 98.3 % (95.0-99.0) 05/27/21 09:20 PT/INR, D-dimer PT 14.9 Sec. (12.2-14.9) 05/25/21 04:25 INR 1.05 (0.87-1.13) 05/25/21 04:25 D-Dimer 2730.61 ng/mlDDU (0-234) H 05/12/21 07:19 Abnormal lab findings: Abnormal Labs 05/04/21 05/04/21 05/04/21 07:25 07:25 07:25 WBC 12.9 H RBC 3.04 L Hgb 9.5 L Hct 28.4 L MCV MCHC RDW 15.4 H Lymph % (Auto) 11.4 L [place] % (Auto) 10.1 H Lymph # (Auto) [place] # (Auto) 1.3 H Seg Neutrophils % 78.0 H Seg Neuts % (Manual) Lymphocytes % (Manual) Monocytes % (Manual) Seg Neutrophils # 10.0 H Seg Neutrophils # Man Lymphocytes # (Manual) Monocytes # (Manual) Haptoglobin PT 15.1 H APTT D-Dimer Heparin Anti-Xa Level ABG pH ABG pO2 ABG HCO3 ABG O2 Saturation ABG Base Excess ABG Hemoglobin Oxyhemoglobin Sodium 135 L Potassium Chloride Carbon Dioxide BUN 65 H Creatinine 3.4 H Glucose 118 H POC Glucose Calcium Phosphorus Magnesium Iron TIBC Ferritin Total Bilirubin 1.50 H AST 519 H ALT 475 H Lactate Dehydrogenase Total Creatine Kinase Troponin T 1.300 H* C-Reactive Protein Albumin Urine WBC (Auto) Urine Creatinine Urine Total Protein Complement C3 Coronavirus (PCR) Hepatitis C Antibody Crossmatch 05/04/21 05/04/21 05/04/21 07:25 08:42 08:42 WBC RBC Hgb Hct MCV MCHC RDW Lymph % (Auto) [place] % (Auto) Lymph # (Auto) [place] # (Auto) Seg Neutrophils % Seg Neuts % (Manual) Lymphocytes % (Manual) Monocytes % (Manual) Seg Neutrophils # Seg Neutrophils # Man Lymphocytes # (Manual) Monocytes # (Manual) Haptoglobin PT APTT D-Dimer 579.49 H Heparin Anti-Xa Level ABG pH ABG pO2 ABG HCO3 ABG O2 Saturation ABG Base Excess ABG Hemoglobin Oxyhemoglobin Sodium Potassium Chloride Carbon Dioxide BUN Creatinine Glucose POC Glucose Calcium Phosphorus Magnesium Iron TIBC Ferritin Total Bilirubin AST ALT Lactate Dehydrogenase Total Creatine Kinase 406 H Troponin T 1.230 H* C-Reactive Protein Albumin Urine WBC (Auto) Urine Creatinine Urine Total Protein Complement C3 Coronavirus (PCR) Hepatitis C Antibody Crossmatch 05/04/21 05/04/21 05/04/21 10:13 13:34 18:14 WBC RBC Hgb 8.8 L Hct 26.6 L MCV MCHC RDW Lymph % (Auto) [place] % (Auto) Lymph # (Auto) [place] # (Auto) Seg Neutrophils % Seg Neuts % (Manual) Lymphocytes % (Manual) Monocytes % (Manual) Seg Neutrophils # Seg Neutrophils # Man Lymphocytes # (Manual) Monocytes # (Manual) Haptoglobin PT APTT D-Dimer Heparin Anti-Xa Level < 0.10 L ABG pH ABG pO2 ABG HCO3 ABG O2 Saturation ABG Base Excess ABG Hemoglobin Oxyhemoglobin Sodium Potassium Chloride Carbon Dioxide BUN Creatinine Glucose POC Glucose Calcium Phosphorus Magnesium Iron TIBC Ferritin Total Bilirubin AST ALT Lactate Dehydrogenase Total Creatine Kinase Troponin T 1.400 H* C-Reactive Protein Albumin Urine WBC (Auto) Urine Creatinine Urine Total Protein Complement C3 Coronavirus (PCR) Hepatitis C Antibody Crossmatch 05/05/21 05/05/21 05/05/21 03:40 03:40 03:40 WBC RBC Hgb Hct MCV MCHC RDW Lymph % (Auto) [place] % (Auto) Lymph # (Auto) [place] # (Auto) Seg Neutrophils % Seg Neuts % (Manual) Lymphocytes % (Manual) Monocytes % (Manual) Seg Neutrophils # Seg Neutrophils # Man Lymphocytes # (Manual) Monocytes # (Manual) Haptoglobin PT APTT D-Dimer Heparin Anti-Xa Level 0.11 L ABG pH ABG pO2 ABG HCO3 ABG O2 Saturation ABG Base Excess ABG Hemoglobin Oxyhemoglobin Sodium Potassium 3.3 L Chloride Carbon Dioxide BUN 59 H Creatinine 2.6 H Glucose 139 H POC Glucose Calcium Phosphorus Magnesium Iron TIBC Ferritin Total Bilirubin AST ALT Lactate Dehydrogenase Total Creatine Kinase Troponin T C-Reactive Protein Albumin Urine WBC (Auto) Urine Creatinine Urine Total Protein Complement C3 Coronavirus (PCR) Hepatitis C Antibody Reactive A Crossmatch 05/05/21 05/05/21 05/05/21 03:40 08:30 09:57 WBC RBC Hgb Hct MCV MCHC RDW Lymph % (Auto) [place] % (Auto) Lymph # (Auto) [place] # (Auto) Seg Neutrophils % Seg Neuts % (Manual) Lymphocytes % (Manual) Monocytes % (Manual) Seg Neutrophils # Seg Neutrophils # Man Lymphocytes # (Manual) Monocytes # (Manual) Haptoglobin PT APTT D-Dimer Heparin Anti-Xa Level ABG pH ABG pO2 ABG HCO3 ABG O2 Saturation ABG Base Excess ABG Hemoglobin Oxyhemoglobin Sodium Potassium Chloride Carbon Dioxide BUN Creatinine Glucose POC Glucose Calcium Phosphorus Magnesium Iron TIBC Ferritin Total Bilirubin AST ALT Lactate Dehydrogenase Total Creatine Kinase Troponin T C-Reactive Protein Albumin Urine WBC (Auto) Urine Creatinine 100.8 H Urine Total Protein Complement C3 72 L Coronavirus (PCR) Positive A Hepatitis C Antibody Crossmatch 05/05/21 05/05/21 05/05/21 11:28 17:00 19:51 WBC RBC Hgb Hct MCV MCHC RDW Lymph % (Auto) [place] % (Auto) Lymph # (Auto) [place] # (Auto) Seg Neutrophils % Seg Neuts % (Manual) Lymphocytes % (Manual) Monocytes % (Manual) Seg Neutrophils # Seg Neutrophils # Man Lymphocytes # (Manual) Monocytes # (Manual) Haptoglobin PT APTT D-Dimer Heparin Anti-Xa Level 0.10 L 0.22 L ABG pH 7.304 L ABG pO2 140.8 H ABG HCO3 ABG O2 Saturation ABG Base Excess -2.1 L ABG Hemoglobin 10.2 L Oxyhemoglobin Sodium Potassium Chloride Carbon Dioxide BUN Creatinine Glucose POC Glucose Calcium Phosphorus Magnesium Iron TIBC Ferritin Total Bilirubin AST ALT Lactate Dehydrogenase Total Creatine Kinase Troponin T C-Reactive Protein Albumin Urine WBC (Auto) Urine Creatinine Urine Total Protein Complement C3 Coronavirus (PCR) Hepatitis C Antibody Crossmatch 05/06/21 05/06/21 05/06/21 03:47 06:15 17:53 WBC RBC Hgb 9.0 L Hct 27.8 L MCV MCHC RDW Lymph % (Auto) [place] % (Auto) Lymph # (Auto) [place] # (Auto) Seg Neutrophils % Seg Neuts % (Manual) Lymphocytes % (Manual) Monocytes % (Manual) Seg Neutrophils # Seg Neutrophils # Man Lymphocytes # (Manual) Monocytes # (Manual) Haptoglobin PT APTT D-Dimer Heparin Anti-Xa Level 0.10 L ABG pH ABG pO2 143.5 H ABG HCO3 ABG O2 Saturation ABG Base Excess -2.4 L ABG Hemoglobin 6.9 L Oxyhemoglobin Sodium Potassium Chloride Carbon Dioxide BUN Creatinine Glucose POC Glucose Calcium Phosphorus Magnesium Iron TIBC Ferritin Total Bilirubin AST ALT Lactate Dehydrogenase Total Creatine Kinase Troponin T C-Reactive Protein Albumin Urine WBC (Auto) Urine Creatinine Urine Total Protein Complement C3 Coronavirus (PCR) Hepatitis C Antibody Crossmatch 05/07/21 05/07/21 05/07/21 00:07 03:22 03:45 WBC RBC Hgb Hct MCV MCHC RDW Lymph % (Auto) [place] % (Auto) Lymph # (Auto) [place] # (Auto) Seg Neutrophils % Seg Neuts % (Manual) Lymphocytes % (Manual) Monocytes % (Manual) Seg Neutrophils # Seg Neutrophils # Man Lymphocytes # (Manual) Monocytes # (Manual) Haptoglobin PT APTT D-Dimer Heparin Anti-Xa Level < 0.10 L ABG pH ABG pO2 104.3 H ABG HCO3 ABG O2 Saturation ABG Base Excess -2.6 L ABG Hemoglobin 9.1 L Oxyhemoglobin Sodium Potassium Chloride 107.1 H Carbon Dioxide 20 L BUN 56 H Creatinine 2.9 H Glucose POC Glucose Calcium Phosphorus Magnesium Iron TIBC Ferritin Total Bilirubin AST ALT Lactate Dehydrogenase Total Creatine Kinase Troponin T C-Reactive Protein Albumin Urine WBC (Auto) Urine Creatinine Urine Total Protein Complement C3 Coronavirus (PCR) Hepatitis C Antibody Crossmatch 05/07/21 05/07/2105/07/22 07:44 16:28 22:41 WBC RBC Hgb Hct MCV MCHC RDW Lymph % (Auto) [place] % (Auto) Lymph # (Auto) [place] # (Auto) Seg Neutrophils % Seg Neuts % (Manual) Lymphocytes % (Manual) Monocytes % (Manual) Seg Neutrophils # Seg Neutrophils # Man Lymphocytes # (Manual) Monocytes # (Manual) Haptoglobin PT APTT D-Dimer Heparin Anti-Xa Level < 0.10 L 0.10 L < 0.10 L ABG pH ABG pO2 ABG HCO3 ABG O2 Saturation ABG Base Excess ABG Hemoglobin Oxyhemoglobin Sodium Potassium Chloride Carbon Dioxide BUN Creatinine Glucose POC Glucose Calcium Phosphorus Magnesium Iron TIBC Ferritin Total Bilirubin AST ALT Lactate Dehydrogenase Total Creatine Kinase Troponin T C-Reactive Protein Albumin Urine WBC (Auto) Urine Creatinine Urine Total Protein Complement C3 Coronavirus (PCR) Hepatitis C Antibody Crossmatch 05/08/21 05/08/21 05/08/21 03:25 04:34 07:30 WBC 12.4 H RBC 3.02 L Hgb 9.5 L Hct 29.2 L MCV 97 H MCHC RDW 16.7 H Lymph % (Auto) 8.1 L [place] % (Auto) 11.0 H Lymph # (Auto) 1.0 L [place] # (Auto) 1.4 H Seg Neutrophils % 80.1 H Seg Neuts % (Manual) Lymphocytes % (Manual) Monocytes % (Manual) Seg Neutrophils # 9.9 H Seg Neutrophils # Man Lymphocytes # (Manual) Monocytes # (Manual) Haptoglobin PT APTT D-Dimer Heparin Anti-Xa Level ABG pH ABG pO2 139.0 H ABG HCO3 ABG O2 Saturation ABG Base Excess ABG Hemoglobin 8.8 L Oxyhemoglobin Sodium Potassium Chloride 110.5 H Carbon Dioxide BUN 59 H Creatinine 2.8 H Glucose 103 H POC Glucose Calcium Phosphorus Magnesium Iron TIBC Ferritin Total Bilirubin AST ALT 327 H Lactate Dehydrogenase Total Creatine Kinase Troponin T C-Reactive Protein Albumin 3.1 L Urine WBC (Auto) Urine Creatinine Urine Total Protein Complement C3 Coronavirus (PCR) Hepatitis C Antibody Crossmatch 05/09/21 05/09/21 05/09/21 04:10 04:20 04:20 WBC 11.7 H RBC 2.79 L Hgb 8.7 L Hct 26.5 L MCV 95 H MCHC RDW 16.2 H Lymph % (Auto) [place] % (Auto) Lymph # (Auto) [place] # (Auto) Seg Neutrophils % Seg Neuts % (Manual) Lymphocytes % (Manual) Monocytes % (Manual) Seg Neutrophils # Seg Neutrophils # Man Lymphocytes # (Manual) Monocytes # (Manual) Haptoglobin PT APTT D-Dimer Heparin Anti-Xa Level ABG pH ABG pO2 161.6 H ABG HCO3 ABG O2 Saturation ABG Base Excess ABG Hemoglobin 8.3 L Oxyhemoglobin Sodium 151 H Potassium Chloride 114.5 H Carbon Dioxide 21 L BUN 57 H Creatinine 2.4 H Glucose POC Glucose Calcium Phosphorus Magnesium Iron TIBC Ferritin Total Bilirubin AST ALT 210 H Lactate Dehydrogenase Total Creatine Kinase Troponin T C-Reactive Protein Albumin 2.9 L Urine WBC (Auto) Urine Creatinine Urine Total Protein Complement C3 Coronavirus (PCR) Hepatitis C Antibody Crossmatch 05/09/21 05/09/21 05/09/21 09:48 09:48 13:22 WBC 11.6 H RBC 3.00 L Hgb 9.0 L Hct 28.4 L MCV MCHC RDW 15.9 H Lymph % (Auto) 5.9 L [place] % (Auto) 8.9 H Lymph # (Auto) 0.7 L [place] # (Auto) 1.0 H Seg Neutrophils % 84.3 H Seg Neuts % (Manual) Lymphocytes % (Manual) Monocytes % (Manual) Seg Neutrophils # 9.8 H Seg Neutrophils # Man Lymphocytes # (Manual) Monocytes # (Manual) Haptoglobin PT APTT D-Dimer Heparin Anti-Xa Level ABG pH ABG pO2 ABG HCO3 ABG O2 Saturation ABG Base Excess ABG Hemoglobin Oxyhemoglobin Sodium Potassium Chloride Carbon Dioxide BUN Creatinine Glucose POC Glucose Calcium Phosphorus Magnesium Iron TIBC Ferritin Total Bilirubin AST ALT Lactate Dehydrogenase Total Creatine Kinase Troponin T C-Reactive Protein 8.70 H Albumin Urine WBC (Auto) 25.0 H Urine Creatinine Urine Total Protein Complement C3 Coronavirus (PCR) Hepatitis C Antibody Crossmatch 05/09/21 05/09/21 05/10/21 15:20 18:16 04:57 WBC RBC 2.87 L Hgb 8.8 L Hct 27.0 L MCV MCHC RDW 15.9 H Lymph % (Auto) [place] % (Auto) Lymph # (Auto) [place] # (Auto) Seg Neutrophils % Seg Neuts % (Manual) Lymphocytes % (Manual) Monocytes % (Manual) Seg Neutrophils # Seg Neutrophils # Man Lymphocytes # (Manual) Monocytes # (Manual) Haptoglobin PT APTT D-Dimer Heparin Anti-Xa Level ABG pH ABG pO2 102.0 H ABG HCO3 ABG O2 Saturation ABG Base Excess -2.8 L ABG Hemoglobin 9.0 L Oxyhemoglobin Sodium Potassium Chloride Carbon Dioxide BUN Creatinine Glucose POC Glucose 130 H Calcium Phosphorus Magnesium Iron TIBC Ferritin Total Bilirubin AST ALT Lactate Dehydrogenase Total Creatine Kinase Troponin T C-Reactive Protein Albumin Urine WBC (Auto) Urine Creatinine Urine Total Protein Complement C3 Coronavirus (PCR) Hepatitis C Antibody Crossmatch 05/10/21 05/10/21 05/10/21 04:57 04:57 04:57 WBC RBC Hgb Hct MCV MCHC RDW Lymph % (Auto) [place] % (Auto) Lymph # (Auto) [place] # (Auto) Seg Neutrophils % Seg Neuts % (Manual) Lymphocytes % (Manual) Monocytes % (Manual) Seg Neutrophils # Seg Neutrophils # Man Lymphocytes # (Manual) Monocytes # (Manual) Haptoglobin PT APTT D-Dimer 1546.78 H Heparin Anti-Xa Level ABG pH ABG pO2 ABG HCO3 ABG O2 Saturation ABG Base Excess ABG Hemoglobin Oxyhemoglobin Sodium 148 H Potassium Chloride 114.9 H Carbon Dioxide 21 L BUN 57 H Creatinine 2.3 H Glucose 157 H POC Glucose Calcium Phosphorus Magnesium Iron TIBC Ferritin 888.2 H Total Bilirubin AST ALT Lactate Dehydrogenase 289 H Total Creatine Kinase Troponin T C-Reactive Protein 6.80 H Albumin Urine WBC (Auto) Urine Creatinine Urine Total Protein Complement C3 Coronavirus (PCR) Hepatitis C Antibody Crossmatch 05/10/21 05/10/21 05/10/21 05:09 08:04 11:03 WBC RBC Hgb Hct MCV MCHC RDW Lymph % (Auto) [place] % (Auto) Lymph # (Auto) [place] # (Auto) Seg Neutrophils % Seg Neuts % (Manual) Lymphocytes % (Manual) Monocytes % (Manual) Seg Neutrophils # Seg Neutrophils # Man Lymphocytes # (Manual) Monocytes # (Manual) Haptoglobin PT APTT D-Dimer Heparin Anti-Xa Level ABG pH 7.473 H ABG pO2 114.6 H ABG HCO3 ABG O2 Saturation ABG Base Excess ABG Hemoglobin 9.5 L Oxyhemoglobin Sodium Potassium Chloride Carbon Dioxide BUN Creatinine Glucose POC Glucose 152 H Calcium Phosphorus Magnesium Iron TIBC Ferritin Total Bilirubin AST ALT Lactate Dehydrogenase Total Creatine Kinase Troponin T C-Reactive Protein Albumin Urine WBC (Auto) Urine Creatinine 100.8 H Urine Total Protein 42 H Complement C3 Coronavirus (PCR) Hepatitis C Antibody Crossmatch 05/10/21 05/10/21 05/10/21 13:07 18:01 23:31 WBC RBC Hgb Hct MCV MCHC RDW Lymph % (Auto) [place] % (Auto) Lymph # (Auto) [place] # (Auto) Seg Neutrophils % Seg Neuts % (Manual) Lymphocytes % (Manual) Monocytes % (Manual) Seg Neutrophils # Seg Neutrophils # Man Lymphocytes # (Manual) Monocytes # (Manual) Haptoglobin PT APTT D-Dimer Heparin Anti-Xa Level ABG pH ABG pO2 ABG HCO3 ABG O2 Saturation ABG Base Excess ABG Hemoglobin Oxyhemoglobin Sodium Potassium Chloride Carbon Dioxide BUN Creatinine Glucose POC Glucose 150 H 189 H 142 H Calcium Phosphorus Magnesium Iron TIBC Ferritin Total Bilirubin AST ALT Lactate Dehydrogenase Total Creatine Kinase Troponin T C-Reactive Protein Albumin Urine WBC (Auto) Urine Creatinine Urine Total Protein Complement C3 Coronavirus (PCR) Hepatitis C Antibody Crossmatch 05/10/21 05/11/21 05/11/21 Unknown 05:25 06:53 WBC RBC Hgb Hct MCV MCHC RDW Lymph % (Auto) [place] % (Auto) Lymph # (Auto) [place] # (Auto) Seg Neutrophils % Seg Neuts % (Manual) Lymphocytes % (Manual) Monocytes % (Manual) Seg Neutrophils # Seg Neutrophils # Man Lymphocytes # (Manual) Monocytes # (Manual) Haptoglobin PT APTT D-Dimer Heparin Anti-Xa Level ABG pH ABG pO2 126.6 H ABG HCO3 ABG O2 Saturation ABG Base Excess ABG Hemoglobin 9.2 L Oxyhemoglobin Sodium 150 H Potassium Chloride 116.6 H Carbon Dioxide 21 L BUN 62 H Creatinine 2.5 H Glucose 142 H POC Glucose 163 H Calcium Phosphorus Magnesium Iron TIBC Ferritin Total Bilirubin AST ALT Lactate Dehydrogenase Total Creatine Kinase Troponin T C-Reactive Protein Albumin Urine WBC (Auto) Urine Creatinine Urine Total Protein Complement C3 Coronavirus (PCR) Hepatitis C Antibody Crossmatch 05/11/21 05/11/21 05/11/21 06:53 11:06 13:51 WBC RBC 3.07 L Hgb 9.3 L Hct 29.0 L MCV 95 H MCHC RDW 16.1 H Lymph % (Auto) [place] % (Auto) Lymph # (Auto) [place] # (Auto) Seg Neutrophils % Seg Neuts % (Manual) Lymphocytes % (Manual) Monocytes % (Manual) Seg Neutrophils # Seg Neutrophils # Man Lymphocytes # (Manual) Monocytes # (Manual) Haptoglobin PT APTT D-Dimer Heparin Anti-Xa Level ABG pH ABG pO2 74.9 L ABG HCO3 ABG O2 Saturation ABG Base Excess -3.3 L ABG Hemoglobin 10.8 L Oxyhemoglobin Sodium Potassium Chloride Carbon Dioxide BUN Creatinine Glucose POC Glucose 145 H Calcium Phosphorus Magnesium Iron TIBC Ferritin Total Bilirubin AST ALT Lactate Dehydrogenase Total Creatine Kinase Troponin T C-Reactive Protein Albumin Urine WBC (Auto) Urine Creatinine Urine Total Protein Complement C3 Coronavirus (PCR) Hepatitis C Antibody Crossmatch 05/11/21 05/11/21 05/11/21 14:43 14:43 15:47 WBC RBC Hgb 9.2 L Hct 29.7 L MCV MCHC RDW Lymph % (Auto) [place] % (Auto) Lymph # (Auto) [place] # (Auto) Seg Neutrophils % Seg Neuts % (Manual) Lymphocytes % (Manual) Monocytes % (Manual) Seg Neutrophils # Seg Neutrophils # Man Lymphocytes # (Manual) Monocytes # (Manual) Haptoglobin PT 15.6 H APTT D-Dimer Heparin Anti-Xa Level ABG pH ABG pO2 ABG HCO3 ABG O2 Saturation ABG Base Excess ABG Hemoglobin Oxyhemoglobin Sodium Potassium Chloride Carbon Dioxide BUN Creatinine Glucose POC Glucose 137 H Calcium Phosphorus Magnesium Iron TIBC Ferritin Total Bilirubin AST ALT Lactate Dehydrogenase Total Creatine Kinase Troponin T C-Reactive Protein Albumin Urine WBC (Auto) Urine Creatinine Urine Total Protein Complement C3 Coronavirus (PCR) Hepatitis C Antibody Crossmatch 05/12/21 05/12/21 05/12/21 00:04 05:07 07:19 WBC 11.9 H RBC 3.00 L Hgb 9.1 L Hct 28.9 L MCV 96 H MCHC RDW 16.7 H Lymph % (Auto) 11.5 L [place] % (Auto) 8.2 H Lymph # (Auto) [place] # (Auto) 1.0 H Seg Neutrophils % 80.0 H Seg Neuts % (Manual) Lymphocytes % (Manual) Monocytes % (Manual) Seg Neutrophils # 9.6 H Seg Neutrophils # Man Lymphocytes # (Manual) Monocytes # (Manual) Haptoglobin PT APTT D-Dimer Heparin Anti-Xa Level ABG pH ABG pO2 ABG HCO3 ABG O2 Saturation ABG Base Excess ABG Hemoglobin Oxyhemoglobin Sodium Potassium Chloride Carbon Dioxide BUN Creatinine Glucose POC Glucose 121 H 117 H Calcium Phosphorus Magnesium Iron TIBC Ferritin Total Bilirubin AST ALT Lactate Dehydrogenase Total Creatine Kinase Troponin T C-Reactive Protein Albumin Urine WBC (Auto) Urine Creatinine Urine Total Protein Complement C3 Coronavirus (PCR) Hepatitis C Antibody Crossmatch 05/12/21 05/12/21 05/12/21 07:19 07:19 07:19 WBC RBC Hgb Hct MCV MCHC RDW Lymph % (Auto) [place] % (Auto) Lymph # (Auto) [place] # (Auto) Seg Neutrophils % Seg Neuts % (Manual) Lymphocytes % (Manual) Monocytes % (Manual) Seg Neutrophils # Seg Neutrophils # Man Lymphocytes # (Manual) Monocytes # (Manual) Haptoglobin PT APTT D-Dimer 2730.61 H Heparin Anti-Xa Level ABG pH ABG pO2 ABG HCO3 ABG O2 Saturation ABG Base Excess ABG Hemoglobin Oxyhemoglobin Sodium 146 H Potassium 5.1 H Chloride 112.4 H Carbon Dioxide 21 L BUN 61 H Creatinine 2.2 H Glucose 136 H POC Glucose Calcium 8.1 L Phosphorus Magnesium Iron TIBC Ferritin 640.2 H Total Bilirubin AST ALT Lactate Dehydrogenase 314 H Total Creatine Kinase Troponin T C-Reactive Protein 1.60 H Albumin Urine WBC (Auto) Urine Creatinine Urine Total Protein Complement C3 Coronavirus (PCR) Hepatitis C Antibody Crossmatch 05/12/21 05/12/21 05/12/21 11:10 16:10 16:38 WBC RBC Hgb Hct MCV MCHC RDW Lymph % (Auto) [place] % (Auto) Lymph # (Auto) [place] # (Auto) Seg Neutrophils % Seg Neuts % (Manual) Lymphocytes % (Manual) Monocytes % (Manual) Seg Neutrophils # Seg Neutrophils # Man Lymphocytes # (Manual) Monocytes # (Manual) Haptoglobin PT APTT D-Dimer Heparin Anti-Xa Level 0.20 L ABG pH ABG pO2 ABG HCO3 ABG O2 Saturation ABG Base Excess ABG Hemoglobin Oxyhemoglobin Sodium Potassium Chloride Carbon Dioxide BUN Creatinine Glucose POC Glucose 131 H 157 H Calcium Phosphorus Magnesium Iron TIBC Ferritin Total Bilirubin AST ALT Lactate Dehydrogenase Total Creatine Kinase Troponin T C-Reactive Protein Albumin Urine WBC (Auto) Urine Creatinine Urine Total Protein Complement C3 Coronavirus (PCR) Hepatitis C Antibody Crossmatch 05/12/21 05/13/21 05/13/21 23:30 00:12 04:20 WBC RBC Hgb Hct MCV MCHC RDW Lymph % (Auto) [place] % (Auto) Lymph # (Auto) [place] # (Auto) Seg Neutrophils % Seg Neuts % (Manual) Lymphocytes % (Manual) Monocytes % (Manual) Seg Neutrophils # Seg Neutrophils # Man Lymphocytes # (Manual) Monocytes # (Manual) Haptoglobin PT APTT D-Dimer Heparin Anti-Xa Level 0.13 L ABG pH ABG pO2 ABG HCO3 ABG O2 Saturation ABG Base Excess ABG Hemoglobin Oxyhemoglobin Sodium Potassium Chloride 111.2 H Carbon Dioxide BUN 53 H Creatinine 1.9 H Glucose 121 H POC Glucose 115 H Calcium 8.3 L Phosphorus Magnesium Iron TIBC Ferritin Total Bilirubin AST ALT Lactate Dehydrogenase Total Creatine Kinase Troponin T C-Reactive Protein Albumin Urine WBC (Auto) Urine Creatinine Urine Total Protein Complement C3 Coronavirus (PCR) Hepatitis C Antibody Crossmatch 05/13/21 05/13/21 05/13/21 04:20 11:15 11:29 WBC 13.1 H RBC 2.86 L Hgb 8.5 L Hct 26.9 L MCV MCHC RDW 15.7 H Lymph % (Auto) [place] % (Auto) Lymph # (Auto) [place] # (Auto) Seg Neutrophils % Seg Neuts % (Manual) Lymphocytes % (Manual) Monocytes % (Manual) Seg Neutrophils # Seg Neutrophils # Man Lymphocytes # (Manual) Monocytes # (Manual) Haptoglobin PT APTT D-Dimer Heparin Anti-Xa Level ABG pH 7.456 H ABG pO2 106.0 H ABG HCO3 ABG O2 Saturation ABG Base Excess ABG Hemoglobin 7.1 L Oxyhemoglobin Sodium Potassium Chloride Carbon Dioxide BUN Creatinine Glucose POC Glucose 121 H Calcium Phosphorus Magnesium Iron TIBC Ferritin Total Bilirubin AST ALT Lactate Dehydrogenase Total Creatine Kinase Troponin T C-Reactive Protein Albumin Urine WBC (Auto) Urine Creatinine Urine Total Protein Complement C3 Coronavirus (PCR) Hepatitis C Antibody Crossmatch 05/13/21 05/13/21 05/14/21 16:38 23:43 04:26 WBC 14.2 H RBC 3.11 L Hgb 9.4 L Hct 29.3 L MCV MCHC RDW 15.4 H Lymph % (Auto) [place] % (Auto) Lymph # (Auto) [place] # (Auto) Seg Neutrophils % Seg Neuts % (Manual) Lymphocytes % (Manual) Monocytes % (Manual) Seg Neutrophils # Seg Neutrophils # Man Lymphocytes # (Manual) Monocytes # (Manual) Haptoglobin PT APTT D-Dimer Heparin Anti-Xa Level ABG pH ABG pO2 ABG HCO3 ABG O2 Saturation ABG Base Excess ABG Hemoglobin Oxyhemoglobin Sodium Potassium Chloride Carbon Dioxide BUN Creatinine Glucose POC Glucose 119 H 55 L Calcium Phosphorus Magnesium Iron TIBC Ferritin Total Bilirubin AST ALT Lactate Dehydrogenase Total Creatine Kinase Troponin T C-Reactive Protein Albumin Urine WBC (Auto) Urine Creatinine Urine Total Protein Complement C3 Coronavirus (PCR) Hepatitis C Antibody Crossmatch 05/14/21 05/14/21 05/14/21 04:26 05:26 06:51 WBC RBC Hgb Hct MCV MCHC RDW Lymph % (Auto) [place] % (Auto) Lymph # (Auto) [place] # (Auto) Seg Neutrophils % Seg Neuts % (Manual) Lymphocytes % (Manual) Monocytes % (Manual) Seg Neutrophils # Seg Neutrophils # Man Lymphocytes # (Manual) Monocytes # (Manual) Haptoglobin PT APTT D-Dimer Heparin Anti-Xa Level ABG pH ABG pO2 ABG HCO3 ABG O2 Saturation ABG Base Excess ABG Hemoglobin Oxyhemoglobin Sodium Potassium 3.4 L Chloride 107.6 H Carbon Dioxide BUN 42 H Creatinine 1.9 H Glucose POC Glucose 51 L 62 L Calcium Phosphorus Magnesium Iron TIBC Ferritin Total Bilirubin AST ALT Lactate Dehydrogenase Total Creatine Kinase Troponin T C-Reactive Protein Albumin Urine WBC (Auto) Urine Creatinine Urine Total Protein Complement C3 Coronavirus (PCR) Hepatitis C Antibody Crossmatch 05/14/21 05/14/21 05/14/21 09:58 12:05 12:08 WBC RBC Hgb Hct MCV MCHC RDW Lymph % (Auto) [place] % (Auto) Lymph # (Auto) [place] # (Auto) Seg Neutrophils % Seg Neuts % (Manual) Lymphocytes % (Manual) Monocytes % (Manual) Seg Neutrophils # Seg Neutrophils # Man Lymphocytes # (Manual) Monocytes # (Manual) Haptoglobin PT APTT D-Dimer Heparin Anti-Xa Level ABG pH ABG pO2 ABG HCO3 ABG O2 Saturation ABG Base Excess ABG Hemoglobin Oxyhemoglobin Sodium Potassium 3.4 L Chloride Carbon Dioxide BUN 36 H Creatinine 1.8 H Glucose 133 H POC Glucose 60 L 127 H Calcium Phosphorus Magnesium Iron TIBC Ferritin Total Bilirubin AST ALT Lactate Dehydrogenase Total Creatine Kinase Troponin T C-Reactive Protein Albumin Urine WBC (Auto) Urine Creatinine Urine Total Protein Complement C3 Coronavirus (PCR) Hepatitis C Antibody Crossmatch 05/14/21 05/14/21 05/15/21 17:20 23:37 05:34 WBC RBC Hgb Hct MCV MCHC RDW Lymph % (Auto) [place] % (Auto) Lymph # (Auto) [place] # (Auto) Seg Neutrophils % Seg Neuts % (Manual) Lymphocytes % (Manual) Monocytes % (Manual) Seg Neutrophils # Seg Neutrophils # Man Lymphocytes # (Manual) Monocytes # (Manual) Haptoglobin PT APTT D-Dimer Heparin Anti-Xa Level ABG pH ABG pO2 ABG HCO3 ABG O2 Saturation ABG Base Excess ABG Hemoglobin Oxyhemoglobin Sodium Potassium Chloride Carbon Dioxide BUN Creatinine Glucose POC Glucose 144 H 115 H 119 H Calcium Phosphorus Magnesium Iron TIBC Ferritin Total Bilirubin AST ALT Lactate Dehydrogenase Total Creatine Kinase Troponin T C-Reactive Protein Albumin Urine WBC (Auto) Urine Creatinine Urine Total Protein Complement C3 Coronavirus (PCR) Hepatitis C Antibody Crossmatch 05/15/21 05/15/21 05/15/21 07:26 07:26 14:35 WBC 13.8 H RBC 3.32 L Hgb 10.0 L Hct 31.2 L MCV MCHC RDW 16.0 H Lymph % (Auto) [place] % (Auto) Lymph # (Auto) [place] # (Auto) Seg Neutrophils % Seg Neuts % (Manual) Lymphocytes % (Manual) Monocytes % (Manual) Seg Neutrophils # Seg Neutrophils # Man Lymphocytes # (Manual) Monocytes # (Manual) Haptoglobin PT APTT D-Dimer Heparin Anti-Xa Level ABG pH ABG pO2 ABG HCO3 ABG O2 Saturation ABG Base Excess ABG Hemoglobin Oxyhemoglobin Sodium 149 H D Potassium 3.5 L Chloride 113.2 H Carbon Dioxide BUN 29 H Creatinine 1.8 H Glucose 113 H POC Glucose 143 H Calcium Phosphorus Magnesium Iron TIBC Ferritin Total Bilirubin AST ALT Lactate Dehydrogenase Total Creatine Kinase Troponin T C-Reactive Protein Albumin Urine WBC (Auto) Urine Creatinine Urine Total Protein Complement C3 Coronavirus (PCR) Hepatitis C Antibody Crossmatch 05/16/21 05/16/21 05/16/21 06:12 08:43 10:05 WBC RBC Hgb Hct MCV MCHC RDW Lymph % (Auto) [place] % (Auto) Lymph # (Auto) [place] # (Auto) Seg Neutrophils % Seg Neuts % (Manual) Lymphocytes % (Manual) Monocytes % (Manual) Seg Neutrophils # Seg Neutrophils # Man Lymphocytes # (Manual) Monocytes # (Manual) Haptoglobin PT APTT D-Dimer Heparin Anti-Xa Level 0.21 L ABG pH ABG pO2 240.8 H ABG HCO3 ABG O2 Saturation 99.4 H ABG Base Excess -2.6 L ABG Hemoglobin 10.7 L Oxyhemoglobin Sodium Potassium Chloride Carbon Dioxide BUN Creatinine Glucose POC Glucose 34 L Calcium Phosphorus Magnesium Iron TIBC Ferritin Total Bilirubin AST ALT Lactate Dehydrogenase Total Creatine Kinase Troponin T C-Reactive Protein Albumin Urine WBC (Auto) Urine Creatinine Urine Total Protein Complement C3 Coronavirus (PCR) Hepatitis C Antibody Crossmatch 05/16/21 05/16/21 05/16/21 10:21 10:21 13:14 WBC 27.6 H RBC Hgb 11.4 L Hct MCV 99 H MCHC 30 L RDW 18.1 H Lymph % (Auto) [place] % (Auto) Lymph # (Auto) [place] # (Auto) Seg Neutrophils % Seg Neuts % (Manual) 83.0 H Lymphocytes % (Manual) 4.0 L Monocytes % (Manual) 9.0 H Seg Neutrophils # Seg Neutrophils # Man 22.9 H Lymphocytes # (Manual) 1.1 L Monocytes # (Manual) 2.5 H Haptoglobin PT APTT D-Dimer Heparin Anti-Xa Level ABG pH ABG pO2 ABG HCO3 ABG O2 Saturation ABG Base Excess ABG Hemoglobin Oxyhemoglobin Sodium Potassium Chloride 108.8 H Carbon Dioxide 17 L BUN 26 H Creatinine 1.9 H Glucose 141 H POC Glucose Calcium Phosphorus Magnesium Iron TIBC Ferritin Total Bilirubin AST ALT Lactate Dehydrogenase Total Creatine Kinase Troponin T 0.503 H* C-Reactive Protein Albumin 3.1 L Urine WBC (Auto) Urine Creatinine Urine Total Protein Complement C3 Coronavirus (PCR) Hepatitis C Antibody Crossmatch 05/16/21 05/17/21 05/17/21 18:40 00:02 04:52 WBC RBC Hgb 8.8 L Hct 28.5 L D MCV MCHC RDW Lymph % (Auto) [place] % (Auto) Lymph # (Auto) [place] # (Auto) Seg Neutrophils % Seg Neuts % (Manual) Lymphocytes % (Manual) Monocytes % (Manual) Seg Neutrophils # Seg Neutrophils # Man Lymphocytes # (Manual) Monocytes # (Manual) Haptoglobin PT APTT D-Dimer Heparin Anti-Xa Level ABG pH ABG pO2 ABG HCO3 ABG O2 Saturation ABG Base Excess ABG Hemoglobin Oxyhemoglobin Sodium Potassium Chloride Carbon Dioxide BUN Creatinine Glucose POC Glucose 114 H Calcium Phosphorus Magnesium Iron TIBC Ferritin Total Bilirubin AST ALT Lactate Dehydrogenase Total Creatine Kinase Troponin T 0.400 H* D C-Reactive Protein Albumin Urine WBC (Auto) Urine Creatinine Urine Total Protein Complement C3 Coronavirus (PCR) Hepatitis C Antibody Crossmatch 05/17/21 05/17/21 05/17/21 04:52 05:15 06:50 WBC RBC Hgb Hct MCV MCHC RDW Lymph % (Auto) [place] % (Auto) Lymph # (Auto) [place] # (Auto) Seg Neutrophils % Seg Neuts % (Manual) Lymphocytes % (Manual) Monocytes % (Manual) Seg Neutrophils # Seg Neutrophils # Man Lymphocytes # (Manual) Monocytes # (Manual) Haptoglobin PT APTT D-Dimer Heparin Anti-Xa Level ABG pH ABG pO2 193.7 H ABG HCO3 27.7 H ABG O2 Saturation 99.2 H ABG Base Excess 3.4 H ABG Hemoglobin 9.2 L Oxyhemoglobin Sodium 146 H Potassium Chloride 110.3 H Carbon Dioxide BUN 33 H Creatinine 2.3 H Glucose 120 H POC Glucose 109 H Calcium Phosphorus Magnesium Iron TIBC Ferritin Total Bilirubin AST ALT Lactate Dehydrogenase Total Creatine Kinase Troponin T C-Reactive Protein Albumin Urine WBC (Auto) Urine Creatinine Urine Total Protein Complement C3 Coronavirus (PCR) Hepatitis C Antibody Crossmatch 05/17/21 05/17/21 05/17/21 10:30 11:33 15:35 WBC RBC Hgb Hct MCV MCHC RDW Lymph % (Auto) [place] % (Auto) Lymph # (Auto) [place] # (Auto) Seg Neutrophils % Seg Neuts % (Manual) Lymphocytes % (Manual) Monocytes % (Manual) Seg Neutrophils # Seg Neutrophils # Man Lymphocytes # (Manual) Monocytes # (Manual) Haptoglobin PT APTT D-Dimer Heparin Anti-Xa Level ABG pH 7.457 H ABG pO2 162.5 H 103.7 H ABG HCO3 27.7 H 27.5 H ABG O2 Saturation ABG Base Excess 3.6 H ABG Hemoglobin 10.1 L 11.5 L Oxyhemoglobin Sodium Potassium Chloride Carbon Dioxide BUN Creatinine Glucose POC Glucose 122 H Calcium Phosphorus Magnesium Iron TIBC Ferritin Total Bilirubin AST ALT Lactate Dehydrogenase Total Creatine Kinase Troponin T C-Reactive Protein Albumin Urine WBC (Auto) Urine Creatinine Urine Total Protein Complement C3 Coronavirus (PCR) Hepatitis C Antibody Crossmatch 05/17/21 05/17/21 05/17/21 16:21 18:18 23:29 WBC RBC Hgb 9.6 L Hct 30.3 L MCV MCHC RDW Lymph % (Auto) [place] % (Auto) Lymph # (Auto) [place] # (Auto) Seg Neutrophils % Seg Neuts % (Manual) Lymphocytes % (Manual) Monocytes % (Manual) Seg Neutrophils # Seg Neutrophils # Man Lymphocytes # (Manual) Monocytes # (Manual) Haptoglobin PT APTT D-Dimer Heparin Anti-Xa Level ABG pH ABG pO2 ABG HCO3 ABG O2 Saturation ABG Base Excess ABG Hemoglobin Oxyhemoglobin Sodium Potassium Chloride Carbon Dioxide BUN Creatinine Glucose POC Glucose 133 H 111 H Calcium Phosphorus Magnesium Iron TIBC Ferritin Total Bilirubin AST ALT Lactate Dehydrogenase Total Creatine Kinase Troponin T C-Reactive Protein Albumin Urine WBC (Auto) Urine Creatinine Urine Total Protein Complement C3 Coronavirus (PCR) Hepatitis C Antibody Crossmatch 05/18/21 05/18/21 05/18/21 04:15 04:15 05:01 WBC 16.8 H RBC 3.03 L Hgb 8.9 L Hct 28.7 L MCV 95 H MCHC 31 L RDW 16.4 H Lymph % (Auto) [place] % (Auto) Lymph # (Auto) [place] # (Auto) Seg Neutrophils % Seg Neuts % (Manual) Lymphocytes % (Manual) Monocytes % (Manual) Seg Neutrophils # Seg Neutrophils # Man Lymphocytes # (Manual) Monocytes # (Manual) Haptoglobin PT APTT D-Dimer Heparin Anti-Xa Level ABG pH ABG pO2 ABG HCO3 ABG O2 Saturation ABG Base Excess ABG Hemoglobin Oxyhemoglobin Sodium Potassium Chloride Carbon Dioxide BUN 40 H Creatinine 2.1 H Glucose 115 H POC Glucose 113 H Calcium Phosphorus Magnesium Iron TIBC Ferritin Total Bilirubin AST ALT Lactate Dehydrogenase Total Creatine Kinase Troponin T C-Reactive Protein Albumin Urine WBC (Auto) Urine Creatinine Urine Total Protein Complement C3 Coronavirus (PCR) Hepatitis C Antibody Crossmatch 05/18/21 05/18/21 05/19/21 11:18 12:50 05:23 WBC 18.5 H RBC 3.31 L Hgb 9.9 L Hct 31.1 L MCV MCHC RDW 16.9 H Lymph % (Auto) [place] % (Auto) Lymph # (Auto) [place] # (Auto) Seg Neutrophils % Seg Neuts % (Manual) Lymphocytes % (Manual) Monocytes % (Manual) Seg Neutrophils # Seg Neutrophils # Man Lymphocytes # (Manual) Monocytes # (Manual) Haptoglobin PT APTT D-Dimer Heparin Anti-Xa Level ABG pH ABG pO2 79.6 L ABG HCO3 28.0 H ABG O2 Saturation ABG Base Excess 3.3 H ABG Hemoglobin 6.2 L Oxyhemoglobin Sodium Potassium Chloride Carbon Dioxide BUN Creatinine Glucose POC Glucose 129 H Calcium Phosphorus Magnesium Iron TIBC Ferritin Total Bilirubin AST ALT Lactate Dehydrogenase Total Creatine Kinase Troponin T C-Reactive Protein Albumin Urine WBC (Auto) Urine Creatinine Urine Total Protein Complement C3 Coronavirus (PCR) Hepatitis C Antibody Crossmatch 05/19/21 05/19/21 05/19/21 05:23 05:23 11:24 WBC RBC Hgb Hct MCV MCHC RDW Lymph % (Auto) [place] % (Auto) Lymph # (Auto) [place] # (Auto) Seg Neutrophils % Seg Neuts % (Manual) Lymphocytes % (Manual) Monocytes % (Manual) Seg Neutrophils # Seg Neutrophils # Man Lymphocytes # (Manual) Monocytes # (Manual) Haptoglobin PT APTT D-Dimer Heparin Anti-Xa Level ABG pH ABG pO2 ABG HCO3 ABG O2 Saturation ABG Base Excess ABG Hemoglobin Oxyhemoglobin Sodium Potassium Chloride Carbon Dioxide BUN 35 H 34 H Creatinine 2.0 H 2.1 H Glucose POC Glucose 111 H Calcium Phosphorus Magnesium Iron TIBC Ferritin Total Bilirubin AST ALT Lactate Dehydrogenase Total Creatine Kinase Troponin T C-Reactive Protein Albumin Urine WBC (Auto) Urine Creatinine Urine Total Protein Complement C3 Coronavirus (PCR) Hepatitis C Antibody Crossmatch 05/19/21 05/19/21 05/19/21 16:33 19:36 23:47 WBC RBC Hgb Hct MCV MCHC RDW Lymph % (Auto) [place] % (Auto) Lymph # (Auto) [place] # (Auto) Seg Neutrophils % Seg Neuts % (Manual) Lymphocytes % (Manual) Monocytes % (Manual) Seg Neutrophils # Seg Neutrophils # Man Lymphocytes # (Manual) Monocytes # (Manual) Haptoglobin PT APTT 72.5 H* D-Dimer Heparin Anti-Xa Level ABG pH ABG pO2 ABG HCO3 ABG O2 Saturation ABG Base Excess ABG Hemoglobin Oxyhemoglobin Sodium Potassium Chloride Carbon Dioxide BUN Creatinine Glucose POC Glucose 131 H 122 H Calcium Phosphorus Magnesium Iron TIBC Ferritin Total Bilirubin AST ALT Lactate Dehydrogenase Total Creatine Kinase Troponin T C-Reactive Protein Albumin Urine WBC (Auto) Urine Creatinine Urine Total Protein Complement C3 Coronavirus (PCR) Hepatitis C Antibody Crossmatch 05/20/21 05/20/21 05/20/21 05:14 05:14 06:12 WBC 19.7 H RBC 3.19 L Hgb 9.5 L Hct 29.9 L MCV MCHC RDW 17.3 H Lymph % (Auto) [place] % (Auto) Lymph # (Auto) [place] # (Auto) Seg Neutrophils % Seg Neuts % (Manual) Lymphocytes % (Manual) Monocytes % (Manual) Seg Neutrophils # Seg Neutrophils # Man Lymphocytes # (Manual) Monocytes # (Manual) Haptoglobin PT APTT D-Dimer Heparin Anti-Xa Level ABG pH ABG pO2 ABG HCO3 ABG O2 Saturation ABG Base Excess ABG Hemoglobin Oxyhemoglobin Sodium Potassium Chloride Carbon Dioxide BUN 31 H Creatinine 2.1 H Glucose 130 H POC Glucose 120 H Calcium Phosphorus Magnesium Iron TIBC Ferritin Total Bilirubin AST ALT Lactate Dehydrogenase Total Creatine Kinase Troponin T C-Reactive Protein Albumin Urine WBC (Auto) Urine Creatinine Urine Total Protein Complement C3 Coronavirus (PCR) Hepatitis C Antibody Crossmatch 05/20/21 05/20/21 05/20/21 11:10 18:12 23:55 WBC RBC Hgb Hct MCV MCHC RDW Lymph % (Auto) [place] % (Auto) Lymph # (Auto) [place] # (Auto) Seg Neutrophils % Seg Neuts % (Manual) Lymphocytes % (Manual) Monocytes % (Manual) Seg Neutrophils # Seg Neutrophils # Man Lymphocytes # (Manual) Monocytes # (Manual) Haptoglobin PT APTT D-Dimer Heparin Anti-Xa Level ABG pH ABG pO2 ABG HCO3 ABG O2 Saturation ABG Base Excess ABG Hemoglobin Oxyhemoglobin Sodium Potassium Chloride Carbon Dioxide BUN Creatinine Glucose POC Glucose 152 H 137 H 146 H Calcium Phosphorus Magnesium Iron TIBC Ferritin Total Bilirubin AST ALT Lactate Dehydrogenase Total Creatine Kinase Troponin T C-Reactive Protein Albumin Urine WBC (Auto) Urine Creatinine Urine Total Protein Complement C3 Coronavirus (PCR) Hepatitis C Antibody Crossmatch 05/21/21 05/21/21 05/21/21 03:12 03:12 05:53 WBC 26.2 H RBC 2.58 L Hgb 7.7 L Hct 24.2 L MCV MCHC RDW 17.8 H Lymph % (Auto) [place] % (Auto) Lymph # (Auto) [place] # (Auto) Seg Neutrophils % Seg Neuts % (Manual) Lymphocytes % (Manual) Monocytes % (Manual) Seg Neutrophils # Seg Neutrophils # Man Lymphocytes # (Manual) Monocytes # (Manual) Haptoglobin PT APTT D-Dimer Heparin Anti-Xa Level ABG pH ABG pO2 ABG HCO3 ABG O2 Saturation ABG Base Excess ABG Hemoglobin Oxyhemoglobin Sodium 133 L Potassium 5.7 H D Chloride Carbon Dioxide 21 L BUN 49 H Creatinine 2.6 H Glucose 160 H POC Glucose 118 H Calcium Phosphorus Magnesium Iron TIBC Ferritin Total Bilirubin AST ALT Lactate Dehydrogenase Total Creatine Kinase Troponin T C-Reactive Protein Albumin Urine WBC (Auto) Urine Creatinine Urine Total Protein Complement C3 Coronavirus (PCR) Hepatitis C Antibody Crossmatch 05/21/21 05/22/21 05/22/21 18:00 00:13 05:05 WBC RBC Hgb Hct MCV MCHC RDW Lymph % (Auto) [place] % (Auto) Lymph # (Auto) [place] # (Auto) Seg Neutrophils % Seg Neuts % (Manual) Lymphocytes % (Manual) Monocytes % (Manual) Seg Neutrophils # Seg Neutrophils # Man Lymphocytes # (Manual) Monocytes # (Manual) Haptoglobin PT APTT D-Dimer Heparin Anti-Xa Level ABG pH 7.500 H ABG pO2 56.6 L ABG HCO3 ABG O2 Saturation ABG Base Excess ABG Hemoglobin 6.7 L Oxyhemoglobin 94.8 L Sodium 136 L Potassium 5.2 H Chloride Carbon Dioxide BUN 59 H Creatinine 2.6 H Glucose 138 H POC Glucose 109 H Calcium Phosphorus Magnesium Iron TIBC Ferritin Total Bilirubin AST ALT Lactate Dehydrogenase Total Creatine Kinase Troponin T C-Reactive Protein Albumin Urine WBC (Auto) Urine Creatinine Urine Total Protein Complement C3 Coronavirus (PCR) Hepatitis C Antibody Crossmatch 05/22/21 05/22/21 05/22/21 06:07 11:49 16:33 WBC RBC Hgb Hct MCV MCHC RDW Lymph % (Auto) [place] % (Auto) Lymph # (Auto) [place] # (Auto) Seg Neutrophils % Seg Neuts % (Manual) Lymphocytes % (Manual) Monocytes % (Manual) Seg Neutrophils # Seg Neutrophils # Man Lymphocytes # (Manual) Monocytes # (Manual) Haptoglobin PT APTT D-Dimer Heparin Anti-Xa Level ABG pH ABG pO2 ABG HCO3 ABG O2 Saturation ABG Base Excess ABG Hemoglobin Oxyhemoglobin Sodium Potassium Chloride Carbon Dioxide BUN Creatinine Glucose POC Glucose 110 H 117 H 119 H Calcium Phosphorus Magnesium Iron TIBC Ferritin Total Bilirubin AST ALT Lactate Dehydrogenase Total Creatine Kinase Troponin T C-Reactive Protein Albumin Urine WBC (Auto) Urine Creatinine Urine Total Protein Complement C3 Coronavirus (PCR) Hepatitis C Antibody Crossmatch 05/23/21 05/23/21 05/23/21 04:48 04:48 07:12 WBC 21.1 H RBC 2.03 L Hgb 6.2 L Hct 19.4 L* MCV 96 H MCHC RDW 17.5 H Lymph % (Auto) [place] % (Auto) Lymph # (Auto) [place] # (Auto) Seg Neutrophils % Seg Neuts % (Manual) Lymphocytes % (Manual) Monocytes % (Manual) Seg Neutrophils # Seg Neutrophils # Man Lymphocytes # (Manual) Monocytes # (Manual) Haptoglobin PT APTT D-Dimer Heparin Anti-Xa Level ABG pH ABG pO2 ABG HCO3 ABG O2 Saturation ABG Base Excess ABG Hemoglobin Oxyhemoglobin Sodium Potassium Chloride Carbon Dioxide BUN 62 H Creatinine 2.8 H Glucose 110 H POC Glucose Calcium Phosphorus Magnesium Iron TIBC Ferritin Total Bilirubin AST ALT Lactate Dehydrogenase Total Creatine Kinase Troponin T C-Reactive Protein Albumin Urine WBC (Auto) Urine Creatinine Urine Total Protein Complement C3 Coronavirus (PCR) Hepatitis C Antibody Crossmatch See Detail 05/23/21 05/23/21 05/23/21 11:19 14:15 16:12 WBC RBC Hgb Hct MCV MCHC RDW Lymph % (Auto) [place] % (Auto) Lymph # (Auto) [place] # (Auto) Seg Neutrophils % Seg Neuts % (Manual) Lymphocytes % (Manual) Monocytes % (Manual) Seg Neutrophils # Seg Neutrophils # Man Lymphocytes # (Manual) Monocytes # (Manual) Haptoglobin PT APTT D-Dimer Heparin Anti-Xa Level ABG pH ABG pO2 294.7 H ABG HCO3 ABG O2 Saturation 99.5 H ABG Base Excess ABG Hemoglobin 6.5 L Oxyhemoglobin Sodium Potassium Chloride Carbon Dioxide BUN Creatinine Glucose POC Glucose 127 H 120 H Calcium Phosphorus Magnesium Iron TIBC Ferritin Total Bilirubin AST ALT Lactate Dehydrogenase Total Creatine Kinase Troponin T C-Reactive Protein Albumin Urine WBC (Auto) Urine Creatinine Urine Total Protein Complement C3 Coronavirus (PCR) Hepatitis C Antibody Crossmatch 05/23/21 05/23/21 05/23/21 16:30 16:30 18:54 WBC RBC Hgb Hct MCV MCHC RDW Lymph % (Auto) [place] % (Auto) Lymph # (Auto) [place] # (Auto) Seg Neutrophils % Seg Neuts % (Manual) Lymphocytes % (Manual) Monocytes % (Manual) Seg Neutrophils # Seg Neutrophils # Man Lymphocytes # (Manual) Monocytes # (Manual) Haptoglobin 254 H PT APTT D-Dimer Heparin Anti-Xa Level ABG pH ABG pO2 ABG HCO3 ABG O2 Saturation ABG Base Excess ABG Hemoglobin Oxyhemoglobin Sodium Potassium Chloride Carbon Dioxide BUN Creatinine Glucose POC Glucose Calcium Phosphorus Magnesium Iron TIBC Ferritin Total Bilirubin AST ALT Lactate Dehydrogenase Total Creatine Kinase Troponin T C-Reactive Protein Albumin Urine WBC (Auto) 12.0 H Urine Creatinine 100.1 H Urine Total Protein Complement C3 Coronavirus (PCR) Hepatitis C Antibody Crossmatch 05/23/21 05/23/21 05/24/21 18:54 Unknown 00:11 WBC 21.7 H RBC 2.40 L Hgb 7.1 L Hct 22.9 L MCV 96 H MCHC 31 L RDW 16.8 H Lymph % (Auto) [place] % (Auto) Lymph # (Auto) [place] # (Auto) Seg Neutrophils % Seg Neuts % (Manual) Lymphocytes % (Manual) Monocytes % (Manual) Seg Neutrophils # Seg Neutrophils # Man Lymphocytes # (Manual) Monocytes # (Manual) Haptoglobin PT APTT D-Dimer Heparin Anti-Xa Level ABG pH ABG pO2 ABG HCO3 ABG O2 Saturation ABG Base Excess ABG Hemoglobin Oxyhemoglobin Sodium Potassium Chloride Carbon Dioxide BUN Creatinine Glucose POC Glucose 110 H Calcium Phosphorus Magnesium Iron 10 L TIBC 151 L Ferritin Total Bilirubin AST ALT Lactate Dehydrogenase 311 H Total Creatine Kinase Troponin T C-Reactive Protein Albumin Urine WBC (Auto) Urine Creatinine Urine Total Protein Complement C3 Coronavirus (PCR) Hepatitis C Antibody Crossmatch 05/24/21 05/24/21 05/24/21 04:11 04:11 05:10 WBC 16.7 H RBC 2.19 L Hgb 6.4 L Hct 20.5 L MCV MCHC 31 L RDW 17.0 H Lymph % (Auto) [place] % (Auto) Lymph # (Auto) [place] # (Auto) Seg Neutrophils % Seg Neuts % (Manual) Lymphocytes % (Manual) Monocytes % (Manual) Seg Neutrophils # Seg Neutrophils # Man Lymphocytes # (Manual) Monocytes # (Manual) Haptoglobin PT APTT D-Dimer Heparin Anti-Xa Level ABG pH ABG pO2 ABG HCO3 ABG O2 Saturation ABG Base Excess ABG Hemoglobin Oxyhemoglobin Sodium Potassium Chloride Carbon Dioxide BUN 78 H Creatinine 2.8 H Glucose 119 H POC Glucose 108 H Calcium Phosphorus 5.30 H Magnesium 2.60 H Iron TIBC Ferritin Total Bilirubin AST 152 H ALT 125 H Lactate Dehydrogenase Total Creatine Kinase Troponin T C-Reactive Protein Albumin 2.5 L Urine WBC (Auto) Urine Creatinine Urine Total Protein Complement C3 Coronavirus (PCR) Hepatitis C Antibody Crossmatch 05/24/21 05/25/21 05/25/21 09:55 04:25 04:25 WBC 13.8 H RBC 2.78 L Hgb 8.3 L Hct 25.6 L MCV MCHC RDW 16.2 H Lymph % (Auto) [place] % (Auto) Lymph # (Auto) [place] # (Auto) Seg Neutrophils % Seg Neuts % (Manual) Lymphocytes % (Manual) Monocytes % (Manual) Seg Neutrophils # Seg Neutrophils # Man Lymphocytes # (Manual) Monocytes # (Manual) Haptoglobin PT APTT D-Dimer Heparin Anti-Xa Level ABG pH ABG pO2 141.9 H ABG HCO3 ABG O2 Saturation ABG Base Excess ABG Hemoglobin 6.5 L Oxyhemoglobin Sodium Potassium Chloride Carbon Dioxide BUN 76 H Creatinine 2.6 H Glucose 110 H POC Glucose Calcium 8.1 L Phosphorus Magnesium Iron TIBC Ferritin Total Bilirubin AST ALT Lactate Dehydrogenase Total Creatine Kinase Troponin T C-Reactive Protein Albumin Urine WBC (Auto) Urine Creatinine Urine Total Protein Complement C3 Coronavirus (PCR) Hepatitis C Antibody Crossmatch 05/25/21 05/25/21 05/25/21 05:19 09:40 17:11 WBC RBC Hgb Hct MCV MCHC RDW Lymph % (Auto) [place] % (Auto) Lymph # (Auto) [place] # (Auto) Seg Neutrophils % Seg Neuts % (Manual) Lymphocytes % (Manual) Monocytes % (Manual) Seg Neutrophils # Seg Neutrophils # Man Lymphocytes # (Manual) Monocytes # (Manual) Haptoglobin PT APTT D-Dimer Heparin Anti-Xa Level ABG pH ABG pO2 150.9 H ABG HCO3 ABG O2 Saturation ABG Base Excess ABG Hemoglobin 7.0 L Oxyhemoglobin Sodium Potassium Chloride Carbon Dioxide BUN Creatinine Glucose POC Glucose 123 H 108 H Calcium Phosphorus Magnesium Iron TIBC Ferritin Total Bilirubin AST ALT Lactate Dehydrogenase Total Creatine Kinase Troponin T C-Reactive Protein Albumin Urine WBC (Auto) Urine Creatinine Urine Total Protein Complement C3 Coronavirus (PCR) Hepatitis C Antibody Crossmatch 05/25/21 05/26/21 05/26/21 23:37 05:02 07:09 WBC RBC Hgb Hct MCV MCHC RDW Lymph % (Auto) [place] % (Auto) Lymph # (Auto) [place] # (Auto) Seg Neutrophils % Seg Neuts % (Manual) Lymphocytes % (Manual) Monocytes % (Manual) Seg Neutrophils # Seg Neutrophils # Man Lymphocytes # (Manual) Monocytes # (Manual) Haptoglobin PT APTT D-Dimer Heparin Anti-Xa Level ABG pH ABG pO2 ABG HCO3 ABG O2 Saturation ABG Base Excess ABG Hemoglobin Oxyhemoglobin Sodium Potassium Chloride Carbon Dioxide BUN 62 H Creatinine 2.1 H Glucose 112 H POC Glucose 117 H 112 H Calcium 8.2 L Phosphorus Magnesium Iron TIBC Ferritin Total Bilirubin AST ALT Lactate Dehydrogenase Total Creatine Kinase Troponin T C-Reactive Protein Albumin Urine WBC (Auto) Urine Creatinine Urine Total Protein Complement C3 Coronavirus (PCR) Hepatitis C Antibody Crossmatch 05/26/21 05/26/21 05/26/21 07:09 09:10 09:50 WBC 15.8 H RBC 3.21 L Hgb 9.2 L Hct 29.6 L MCV MCHC 31 L RDW 16.6 H Lymph % (Auto) [place] % (Auto) Lymph # (Auto) [place] # (Auto) Seg Neutrophils % Seg Neuts % (Manual) Lymphocytes % (Manual) Monocytes % (Manual) Seg Neutrophils # Seg Neutrophils # Man Lymphocytes # (Manual) Monocytes # (Manual) Haptoglobin PT APTT D-Dimer Heparin Anti-Xa Level ABG pH ABG pO2 135.5 H ABG HCO3 ABG O2 Saturation ABG Base Excess ABG Hemoglobin 9.6 L Oxyhemoglobin Sodium Potassium Chloride Carbon Dioxide BUN Creatinine Glucose POC Glucose Calcium Phosphorus Magnesium Iron TIBC Ferritin Total Bilirubin AST ALT Lactate Dehydrogenase Total Creatine Kinase Troponin T C-Reactive Protein Albumin Urine WBC (Auto) 38.0 H Urine Creatinine Urine Total Protein Complement C3 Coronavirus (PCR) Hepatitis C Antibody Crossmatch 05/26/21 05/26/21 05/27/21 11:20 18:24 00:24 WBC RBC Hgb Hct MCV MCHC RDW Lymph % (Auto) [place] % (Auto) Lymph # (Auto) [place] # (Auto) Seg Neutrophils % Seg Neuts % (Manual) Lymphocytes % (Manual) Monocytes % (Manual) Seg Neutrophils # Seg Neutrophils # Man Lymphocytes # (Manual) Monocytes # (Manual) Haptoglobin PT APTT D-Dimer Heparin Anti-Xa Level ABG pH ABG pO2 ABG HCO3 ABG O2 Saturation ABG Base Excess ABG Hemoglobin Oxyhemoglobin Sodium Potassium Chloride Carbon Dioxide BUN Creatinine Glucose POC Glucose 109 H 116 H 115 H Calcium Phosphorus Magnesium Iron TIBC Ferritin Total Bilirubin AST ALT Lactate Dehydrogenase Total Creatine Kinase Troponin T C-Reactive Protein Albumin Urine WBC (Auto) Urine Creatinine Urine Total Protein Complement C3 Coronavirus (PCR) Hepatitis C Antibody Crossmatch 05/27/21 05/27/21 05/27/21 05:12 07:47 07:47 WBC 15.5 H RBC 2.86 L Hgb 8.8 L Hct 26.1 L MCV MCHC RDW 16.1 H Lymph % (Auto) [place] % (Auto) Lymph # (Auto) [place] # (Auto) Seg Neutrophils % Seg Neuts % (Manual) Lymphocytes % (Manual) Monocytes % (Manual) Seg Neutrophils # Seg Neutrophils # Man Lymphocytes # (Manual) Monocytes # (Manual) Haptoglobin PT APTT D-Dimer Heparin Anti-Xa Level ABG pH ABG pO2 ABG HCO3 ABG O2 Saturation ABG Base Excess ABG Hemoglobin Oxyhemoglobin Sodium Potassium Chloride 107.3 H Carbon Dioxide BUN 56 H Creatinine 1.8 H Glucose 108 H POC Glucose 108 H Calcium 8.1 L Phosphorus Magnesium Iron TIBC Ferritin Total Bilirubin AST ALT Lactate Dehydrogenase Total Creatine Kinase Troponin T C-Reactive Protein Albumin Urine WBC (Auto) Urine Creatinine Urine Total Protein Complement C3 Coronavirus (PCR) Hepatitis C Antibody Crossmatch 05/27/21 05/27/21 05/28/21 09:20 18:01 00:09 WBC RBC Hgb Hct MCV MCHC RDW Lymph % (Auto) [place] % (Auto) Lymph # (Auto) [place] # (Auto) Seg Neutrophils % Seg Neuts % (Manual) Lymphocytes % (Manual) Monocytes % (Manual) Seg Neutrophils # Seg Neutrophils # Man Lymphocytes # (Manual) Monocytes # (Manual) Haptoglobin PT APTT D-Dimer Heparin Anti-Xa Level ABG pH ABG pO2 115.2 H ABG HCO3 ABG O2 Saturation ABG Base Excess ABG Hemoglobin 9.2 L Oxyhemoglobin Sodium Potassium Chloride Carbon Dioxide BUN Creatinine Glucose POC Glucose 109 H 114 H Calcium Phosphorus Magnesium Iron TIBC Ferritin Total Bilirubin AST ALT Lactate Dehydrogenase Total Creatine Kinase Troponin T C-Reactive Protein Albumin Urine WBC (Auto) Urine Creatinine Urine Total Protein Complement C3 Coronavirus (PCR) Hepatitis C Antibody Crossmatch 05/28/21 05/28/21 05/28/21 04:04 04:04 04:04 WBC 14.1 H RBC 2.87 L Hgb 8.6 L Hct 26.5 L MCV MCHC RDW 15.9 H Lymph % (Auto) [place] % (Auto) Lymph # (Auto) [place] # (Auto) Seg Neutrophils % Seg Neuts % (Manual) 93.0 H Lymphocytes % (Manual) 2.0 L Monocytes % (Manual) Seg Neutrophils # Seg Neutrophils # Man 13.1 H Lymphocytes # (Manual) 0.3 L Monocytes # (Manual) Haptoglobin PT APTT D-Dimer Heparin Anti-Xa Level ABG pH ABG pO2 ABG HCO3 ABG O2 Saturation ABG Base Excess ABG Hemoglobin Oxyhemoglobin Sodium Potassium Chloride Carbon Dioxide BUN 54 H Creatinine 1.7 H Glucose 116 H POC Glucose Calcium 7.7 L Phosphorus Magnesium Iron TIBC Ferritin Total Bilirubin AST ALT Lactate Dehydrogenase Total Creatine Kinase Troponin T C-Reactive Protein 13.20 H Albumin Urine WBC (Auto) Urine Creatinine Urine Total Protein Complement C3 Coronavirus (PCR) Hepatitis C Antibody Crossmatch 05/28/21 05/28/21 05:32 12:06 WBC RBC Hgb Hct MCV MCHC RDW Lymph % (Auto) [place] % (Auto) Lymph # (Auto) [place] # (Auto) Seg Neutrophils % Seg Neuts % (Manual) Lymphocytes % (Manual) Monocytes % (Manual) Seg Neutrophils # Seg Neutrophils # Man Lymphocytes # (Manual) Monocytes # (Manual) Haptoglobin PT APTT D-Dimer Heparin Anti-Xa Level ABG pH ABG pO2 ABG HCO3 ABG O2 Saturation ABG Base Excess ABG Hemoglobin Oxyhemoglobin Sodium Potassium Chloride Carbon Dioxide BUN Creatinine Glucose POC Glucose 119 H 112 H Calcium Phosphorus Magnesium Iron TIBC Ferritin Total Bilirubin AST ALT Lactate Dehydrogenase Total Creatine Kinase Troponin T C-Reactive Protein Albumin Urine WBC (Auto) Urine Creatinine Urine Total Protein Complement C3 Coronavirus (PCR) Hepatitis C Antibody Crossmatch Chest x-ray: other (none today) Allied health notes reviewed: nursing
--- NOTE | 2021-05-28 15:43 | Progress Note ---
Assessment and Plan Assessment and plan: This is a 56-year-old male with nicotine and cocaine abuse, atrial fibrillation, hypertension and chronic medication noncompliance complicated by homelessness admitted with acute hypoxic respiratory failure, COVID-19 pneumonia, transaminitis, NSTEMI, hypertensive emergency and acute kidney injury A/P Neuro: Metabolic encephalopathy, polysubstance abuse (but amphetamine and tobacco) -On [facility] protocol -Librium and Seroquel taper started 05/25 -Maintain sleep-wake cycle -Monitor QTc -Avoid delirium -UDS positive for amphetamines -We will need cessation counseling when appropriate -fent patch x1- trial dose Cardio: Heart failure reduced EF, cardiomyopathy, NSTEMI, paroxysmal atrial fibrillation, S/p hypertensive emergency, h/o HTN -Continue beta-sylvia, aspirin, statin, hydral, titrate as needed -Cardiology consulted, appreciate recommendations -Echo 05/04/2021-EF 35 to 40%. Moderate concentric LVH. Moderate global hypokinesis of left ventricle. Mild mitral regurgitation. Mild pulmonary hypertension. Echocardiogram reviewed (08/27/2020): LVEF is 50 to 55%. Mild to moderate concentric LVF. Severe diastolic dysfunction is present (restrictive filling). Right ventricle is mildly hypokinetic. RVSP is 48 mmHg. No valvular abnormalities. -S/p Cardizem drip for atrial fibrillation -Blood pressure monitoring per protocol Respiratory: Acute hypoxic respiratory failure -[facility] consulted, appreciate recommendations -Intubated on 05/05 in the ED and extubated 05/13, Re-intubated on 05/16 and Extubated on 05/18 -Reintubated 05/23 with 8.0 OETT at 22 cm at the lips -s/p bipap -A.m. vent settings: Assist control tidal volume 450, rate 16, PEEP 8, FiO2 25% -See RT note for titration -VAP bundle -Continues SPO2 monitoring GI: ? GIB, Transaminitis, h/o hepatitis C -GI consulted, appreciate recommendations -IV Protonix BID -s/p Protonix gtt -24-hour -120 ml -BR: Senokot -Renal ultrasound showed incidental finding of cholelithiasis -Continue supportive management -Trend LFTs : Acute kidney injury likely secondary to vasomotor nephropathy -Nephrology consulted, appreciate recommendations -s/p IVF -Avoid nephrotoxic medications -Renally dose medication -Strict intake and output -FeNa indicates prerenal -Renal ultrasound completed: 1.7 hyper echoic mass within the left upper pole -Monitor follow-up with CT once stable ID: Severe COVID-19 pneumonia, Enterobacter aerogenes PNA, s/p Enterococcus faecalis UTI -Infectious disease consulted, appreciate recommendations -COVID-19 PCR positive -s/p droplet/precautions for 21 days -Not a candidate for remdesivir given acute kidney injury -s/p Dexamethasone for 10 days -Anticoagulation per hospital protocol -Trend COVID-19 from 2 markers (ferritin, D-dimer, CRP, LDH) -05/09 urine culture with Enterococcus faecalis -05/16 tracheal aspirate with Enterobacter aerogenes -per ID Due to persistent fevers switched cefepime to IV ertapenem renally adjusted 05/24 -GC negative -f/u culture data -re-cultured 05/26 Heme: Anemia, Acute DVT (resolved) -Bilateral lower extremity Doppler ultrasound shows acute DVT -heparin gtt converted to DOAC but now d/c -vascular surgery consulted for possible IVC filter placement, appreciate recommendations -repeat doppler shows no DVT -subq heparin for prophylaxis -Pulmonary perfusion study showed low probability of pulmonary embolism -S/p 3 unit PRBC -Trend CBC -Transfuse for hemoglobin less than 7 Endo: NAD -Accu-Cheks every 6 -SSI -Avoid hypoglycemia The high probability of a clinically significant, sudden or life threatening deterioration of the [cardio/resp] system(s) required my full and direct attention, intervention and personal management. The aggregate critical care time was [60] minutes. This time is in addition to time spent performing reported procedures but includes the following: [x] Data Review and interpretation [x] Patient assessment and monitoring of vital signs [x] Documentation [x] Medication orders and management Disposition Plan: icu Total Time Spent with Patient (Minutes): 60 History Interval history: This is a 56-year-old male with a nicotine abuse, A. fib, hypertension, and chronic medication noncompliance and homelessness who presented to emergency department on 05/04 with complaints of dyspnea on exertion for the past month worsening over the past 3 days, intermittent left-sided chest tightness with activity, and persistent cough without fever. Work-up in the emergency department revealed anemia, hyponatremia, elevated BUN/creatinine and transaminitis. Patient was admitted to the hospitalist service with acute kidney injury and accelerated hypertension. Hospital course to date 05/04/2021. Cardiology was considering patient for Site Physician. However, patient with elevated creatinine therefore will hold off on cath evaluation. Nephrology consultation for acute kidney injury. Etiology likely secondary to vasomotor nephropathy/dehydration. We will start IV fluid hydration. Check renal ultrasound to rule out obstructive uropathy. We will resume home medications for the accelerated hypertension 05/05/2021. Echocardiogram reveals EF 35-40% with moderate concentric left ventricular hypertrophy. Moderate global hypokinesis of left ventricle. Mild mitral regurgitation. Mild pulmonary hypertension. Troponins are believed to be elevated in the setting of acute kidney injury. No beta-blockers due to cocaine use continue heparin and nitro drip. Continue CIWA protocol. Await urine studies 05/06/2021. Patient decompensated yesterday with worsening respiratory failure and difficulty to protect airway. Patient was breathing sonorously, and hypoxic. Patient was intubated and currently is on mechanical ventilation. Patient with AC mode ventilation rate of 20, tidal volume 450, FiO2 40% and PEEP of 6. COVID PCR testing on 05/05/2021 was found to be positive. Echocardiogram completed on this admission shows worsening EF from August 2020. Echocardiogram now reveals moderate concentric left ventricular hypertrophy with moderate global hypokinesis and EF of 35-40%. Mild pulmonary hypertension. 05/08: Continue current management, renal stable, LFTs stable and if improved will start on statin therapy. 05/09: Patient is febrile, will panculture, PSV today. CRP pending. Mucoid discharge noted from meatus which was sent for culture. Hypernatremia persists, free water flushes increased 05/10: PSV trial per [facility], T-max 102.3, given mildly elevated procalcitonin started on ceftriaxone 2 g every 24 for 2 days per ID. Overnight patient had at rial fibrillation which was treated with Cardizem drip and converted to sinus rhythm. Metoprolol p.o. increased to 3 times daily. 05/11: Patient still running fevers and if still febrile tomorrow will escalate to cefepime per ID as he is currently on ceftriaxone, [facility] attempted PSV but patient became agitated and was switched back to pressure control. Lower extremity ultrasound shows acute DVT and started on heparin drip. Started on scheduled Librium. Patient remains with hypernatremia and elevated creatinine and on IV fluids. Free water flushes adjusted. Started on vancomycin today 1/27: Patient placed on pressure support trial without fentanyl, hypernatremia improving, hyperkalemia noted. Slight improvement to renal function. 05/13: Patient was extubated today, ID change antibiotics to Zosyn for Enterococcus, was started tapering Librium in the morning, renal function slightly improved. Possible transfer to floor tomorrow. ST evaluation for swallow ordered. 05/14: Patient became hypoglycemic overnight and started on dextrose IV fluids. Accu-Chek fingersticks have been low but on a.m. BMP patient blood glucose is 100. Other BMP pending. Feeding tube replaced due to need for enteral access and patient being severely confused. Renal functions remains the same. Upon co nfirmation will restart tube feedings, p.o. medications and free water flushes. 05/15: Remains confused/somnolent on my encounter. [facility] Remains hypertensive. Added amlodipine 10 mg NG and labetalol prn. ST eval today but doubt he will participate. Potassium replaced. Renal function improving overall, however, hypernatremic. Inc TF FWF to 250 cc q4hr. 05/16: Respiratory distress this AM, hypoxic in 60's not protecting airway. Required intubation, patient now ICU patient. Reduce fluid to FWF only, IVF d/c off jun. CXR ordered demonstrates pulmonary edema. Lasix 40 mg IV bid ordered. Troponin elevated, continue heparin gtt. Would recommend decreasing sedating m edications at this point, agree with librium taper. 05/17: Patient remains on the vent and sedated, RASS -3. Plan for possible sedation vacation today. D/w [facility] plan to wean for possible extubation on the vent. 2/2: Tolerated 4hrs of sedation vacation yesterday, on low dose fentanyl this am. Patient is tolerating PST this am. Plan to wean off sedation and wean vent setting for possible extubation today. 05/19: s/p extubation now stable on 3L NC. Lethargic this am, will decreased Seroquel. Speech consult for swallow eval, continue enteral nutrition via NGT for now. Hypertensive throughout the night, Norvac added. Remains on heparin gtt for DVT, might need to transition to PO AC, will d/w CCM. Patient is stable for transfer to IMCU 05/20: Continue sepsis work up considering fever, aspiration precautions. Discussed with nursing staff will hold am seroquel. Continue tube feed. RENAL Function remains relatively stable, possible has peaked. 05/21: Patient seen and examined, resting but still with mild increase wob, CXR concerning with right lobar infiltrate, continue antibiotics, will give kayxalate in addition due to hyperkalemia, Will discuss with ID due to rising luekocytosis possible worsening sepsis. 05/22: Patient remains on BIPAP, still sedated appearing, cxr concerning for possible aspiration, unfortunately still worsening renal status. Will continue abx and continue collaboration with pulmonary team to ensure no over sedation. Continue abx, will add kayaxlate 05/23: Patient noted to have severe anemia today, will initiate GI work up and also Hemolysis work up. Will discuss with Vascular about possible IVC filter placement. Continue BIPAP, goal is to see if we can avert re-intubation. Transfuse 1 UNIT PRBC, Will discuss with Pulmonary about holding Eliquis for now. Renal failure still ongoing. 05/24: Patient had a positive occult and was anemic again today and received PRBC. GI was consulted. Repeat Dopplers are negative for DVT vascular recommends a CT/SQ heparin if tolerated and nephrology would like to increase IV fluids per FeNa results. Decrease metoprolol, seroquel and librium. surgery consult for trach/peg 05/25: RT decreased FiO2. GI signed off, Cr slightly improved, Anemia improved. Tmax 101.4 noted, abx per ID. 05/26: Patient had a temperature spike and was recultured, no plan today changes made as patient continues to breathe over the vent, one time dose of fent patch, repeat dopllar in 1 week per [facility], miralax q hs 05/27: Added vancomycin per ID, started CPAP trials, prophylactic heparin, IV fluids stopped per ID. 05/28: No acute events reported overnight, T-max 100.6, slight improvement to BUN/creatinine. awaiting trach & PEG Hospitalist Physical - Physical exam Narrative exam: - EENT Eyes: Present: PERRL, EOM intact ENT: clear oral mucosa - Neck Neck: Present: normal ROM - Respiratory Respiratory effort: normal Respiratory: bilateral: diminished - Cardiovascular Rhythm: regular Heart Sounds: Present: S1 & S2 - Extremities Extremities: no ischemia, pulses intact, pulses symmetrical, normal temperature, normal color Peripheral Pulses: within normal limits - Abdominal General gastrointestinal: soft, non-tender, non-distended, normal bowel sounds - Integumentary Integumentary: Present: warm - Psychiatric Psychiatric: other (sedated) - Neurologic Neurologic: other (Intact cough/gag) - Allied Health Allied health notes reviewed: nursing, RT, social work - Constitutional Vitals: Temp Pulse Resp BP Pulse Ox 100.9 F H 70 24 111/68 96 05/28/21 08:00 05/28/21 14:00 05/28/21 14:00 05/28/21 14:40 05/28/21 14:00 General appearance: Present: no acute distress HEART Score - HEART Score EKG: Non-specific Age: 45-65 Risk factors: 1-2 risk factors Troponin: Troponin T 0.400 ng/mL (0.00-0.029) H* D 05/16/21 18:40 Troponin: 1-3x normal limit - Critical Actions Critical Actions: 4-6 pts:12-16.6% risk of adverse cardiac event. Should be admitted Results - Labs CBC & Chem 7: 05/28/21 04:04 05/28/21 04:04 Labs: Laboratory Last Values WBC 14.1 K/mm3 (4.5-11.0) H 05/28/21 04:04 RBC 2.87 M/mm3 (3.65-5.03) L 05/28/21 04:04 Hgb 8.6 gm/dl (11.8-15.2) L 05/28/21 04:04 Hct 26.5 % (35.5-45.6) L 05/28/21 04:04 MCV 92 fl (84-94) 05/28/21 04:04 MCH 30 pg (28-32) 05/28/21 04:04 MCHC 33 % (32-34) 05/28/21 04:04 RDW 15.9 % (13.2-15.2) H 05/28/21 04:04 Plt Count 363 K/mm3 (140-440) 05/28/21 04:04 Lymph % (Auto) [employer] 05/16/21 10:21 [place] % (Auto) [employer] Engineer 05/16/21 10:21 Eos % (Auto) [employer] Engineer 05/16/21 10:21 Baso % (Auto) [employer] Engineer 05/16/21 10:21 Lymph # (Auto) [employer] Engineer 05/16/21 10:21 [place] # (Auto) [employer] Engineer 05/16/21 10:21 Eos # (Auto) [employer] Engineer 05/16/21 10:21 Baso # (Auto) [employer] Engineer 05/16/21 10:21 Add Manual Diff Complete 05/28/21 04:04 Total Counted 100 05/28/21 04:04 Seg Neutrophils % [employer] 05/16/21 10:21 Seg Neuts % (Manual) 93.0 % (40.0-70.0) H 05/28/21 04:04 Band Neutrophils % 1.0 % 05/28/21 04:04 Lymphocytes % (Manual) 2.0 % (13.4-35.0) L 05/28/21 04:04 Reactive Lymphs % (Man) 0 % 05/28/21 04:04 Monocytes % (Manual) 4.0 % (0.0-7.3) 05/28/21 04:04 Eosinophils % (Manual) 0 % (0.0-4.3) 05/28/21 04:04 Basophils % (Manual) 0 % (0.0-1.8) 05/28/21 04:04 Metamyelocytes % 0 % 05/28/21 04:04 Myelocytes % 0 % 05/28/21 04:04 Promyelocytes % 0 % 05/28/21 04:04 Blast Cells % 0 % 05/28/21 04:04 Nucleated RBC % Not Reportable 05/28/21 04:04 Seg Neutrophils # [employer] 05/16/21 10:21 Seg Neutrophils # Man 13.1 K/mm3 (1.8-7.7) H 05/28/21 04:04 Band Neutrophils # 0.1 K/mm3 05/28/21 04:04 Lymphocytes # (Manual) 0.3 K/mm3 (1.2-5.4) L 05/28/21 04:04 Abs React Lymphs (Man) 0.0 K/mm3 05/28/21 04:04 Monocytes # (Manual) 0.6 K/mm3 (0.0-0.8) 05/28/21 04:04 Eosinophils # (Manual) 0.0 K/mm3 (0.0-0.4) 05/28/21 04:04 Basophils # (Manual) 0.0 K/mm3 (0.0-0.1) 05/28/21 04:04 Metamyelocytes # 0.0 K/mm3 05/28/21 04:04 Myelocytes # 0.0 K/mm3 05/28/21 04:04 Promyelocytes # 0.0 K/mm3 05/28/21 04:04 Blast Cells # 0.0 K/mm3 05/28/21 04:04 WBC Morphology Not Reportable 05/28/21 04:04 Hypersegmented Neuts Not Reportable 05/28/21 04:04 Hyposegmented Neuts Not Reportable 05/28/21 04:04 Hypogranular Neuts Not Reportable 05/28/21 04:04 Smudge Cells Not Reportable 05/28/21 04:04 Toxic Granulation Not Reportable 05/28/21 04:04 Toxic Vacuolation Not Reportable 05/28/21 04:04 Dohle Bodies Not Reportable 05/28/21 04:04 Pelger-Huet Anomaly Not Reportable 05/28/21 04:04 Jesse Rods Not Reportable 05/28/21 04:04 Platelet Estimate Consistent w auto 05/28/21 04:04 Clumped Platelets Not Reportable 05/28/21 04:04 Plt Clumps, EDTA Not Reportable 05/28/21 04:04 Large Platelets Not Reportable 05/28/21 04:04 Giant Platelets Not Reportable 05/28/21 04:04 Platelet Satelliting Not Reportable 05/28/21 04:04 Plt Morphology Comment Not Reportable 05/28/21 04:04 RBC Morphology Not Reportable 05/28/21 04:04 Dimorphic RBCs Not Reportable 05/28/21 04:04 Polychromasia Not Reportable 05/28/21 04:04 Hypochromasia Not Reportable 05/28/21 04:04 Poikilocytosis Not Reportable 05/28/21 04:04 Anisocytosis 1+ 05/28/21 04:04 Microcytosis Not Reportable 05/28/21 04:04 Macrocytosis Not Reportable 05/28/21 04:04 Spherocytes Not Reportable 05/28/21 04:04 Pappenheimer Bodies Not Reportable 05/28/21 04:04 Sickle Cells Not Reportable 05/28/21 04:04 Target Cells Not Reportable 05/28/21 04:04 Tear Drop Cells Not Reportable 05/28/21 04:04 Ovalocytes Not Reportable 05/28/21 04:04 Helmet Cells Not Reportable 05/28/21 04:04 [place] Bodies Not Reportable 05/28/21 04:04 Ovid Rings Not Reportable 05/28/21 04:04 Alec Cells Not Reportable 05/28/21 04:04 Bite Cells Not Reportable 05/28/21 04:04 Crenated Cell Not Reportable 05/28/21 04:04 Elliptocytes Not Reportable 05/28/21 04:04 Acanthocytes (Spur) Not Reportable 05/28/21 04:04 Rouleaux Not Reportable 05/28/21 04:04 Hemoglobin C Crystals Not Reportable 05/28/21 04:04 Schistocytes Not Reportable 05/28/21 04:04 Malaria parasites Not Reportable 05/28/21 04:04 Tomi Bodies Not Reportable 05/28/21 04:04 Haptoglobin 254 mg/dL (43-212) H 05/23/21 18:54 Hem Pathologist Commnt No 05/28/21 04:04 PT 14.9 Sec. (12.2-14.9) 05/25/21 04:25 INR 1.05 (0.87-1.13) 05/25/21 04:25 APTT 72.5 Sec. (24.2-36.6) H* 05/19/21 19:36 D-Dimer 2730.61 ng/mlDDU (0-234) H 05/12/21 07:19 Heparin Anti-Xa Level 0.47 U.I./ml (0.3-0.7) 05/19/21 05:23 ABG pH 7.443 pH Units (7.350-7.450) 05/27/21 09:20 ABG pCO2 38.8 mm Hg 05/27/21 09:20 ABG pO2 115.2 mm Hg (80.0-90.0) H 05/27/21 09:20 ABG HCO3 25.9 mmol/L (20.0-26.0) 05/27/21 09:20 ABG O2 Saturation 98.3 % (95.0-99.0) 05/27/21 09:20 ABG O2 Content 12.5 (0.0-44) 05/27/21 09:20 ABG Base Excess 1.7 mmol/L (-2.0-3.0) 05/27/21 09:20 ABG Hemoglobin 9.2 gm/dl (14.0-18.0) L 05/27/21 09:20 ABG Carboxyhemoglobin 2.2 % (0.0-5.0) 05/27/21 09:20 ABG Methemoglobin 0.7 % (0.0-1.5) 05/27/21 09:20 Oxyhemoglobin 95.4 % (95.0-99.0) 05/27/21 09:20 FiO2 30 % 05/27/21 09:20 Sodium 139 mmol/L (137-145) 05/28/21 04:04 Potassium 4.3 mmol/L (3.6-5.0) 05/28/21 04:04 Chloride 105.3 mmol/L (98-107) 05/28/21 04:04 Carbon Dioxide 24 mmol/L (22-30) 05/28/21 04:04 Anion Gap 14 mmol/L 05/28/21 04:04 BUN 54 mg/dL (9-20) H 05/28/21 04:04 Creatinine 1.7 mg/dL (0.8-1.3) H 05/28/21 04:04 Estimated GFR 42 ml/min 05/28/21 04:04 BUN/Creatinine Ratio 32 % 05/28/21 04:04 Glucose 116 mg/dL (75-100) H 05/28/21 04:04 POC Glucose 112 mg/dL (70-105) H 05/28/21 12:06 Lactic Acid 0.90 mmol/L (0.7-2.0) 05/20/21 09:17 Calcium 7.7 mg/dL (8.4-10.2) L 05/28/21 04:04 Phosphorus 3.70 mg/dL (2.5-4.5) D 05/25/21 04:25 Magnesium 2.30 mg/dL (1.7-2.3) 05/25/21 04:25 Iron 10 ug/dL (49-181) L 05/23/21 Unknown TIBC 151 mcg/dL (250-450) L 05/23/21 Unknown Ferritin 640.2 ng/mL (30.0-300.0) H 05/12/21 07:19 Total Bilirubin 0.50 mg/dL (0.1-1.2) 05/24/21 04:11 AST 152 units/L (5-40) H 05/24/21 04:11 ALT 125 units/L (7-56) H 05/24/21 04:11 Alkaline Phosphatase 72 units/L (35-129) 05/24/21 04:11 Lactate Dehydrogenase 311 units/L (91-180) H 05/23/21 Unknown Total Creatine Kinase 406 units/L (55-170) H 05/04/21 08:42 Troponin T 0.400 ng/mL (0.00-0.029) H* D 05/16/21 18:40 C-Reactive Protein 13.20 mg/dL (0.00-1.30) H 05/28/21 04:04 Total Protein 6.6 g/dL (6.3-8.2) 05/24/21 04:11 Albumin 2.5 g/dL (3.9-5) L 05/24/21 04:11 Albumin/Globulin Ratio 0.6 % 05/24/21 04:11 Triglycerides 144 mg/dL (2-149) 05/10/21 04:57 Cholesterol 140 mg/dL (50-199) 05/04/21 07:25 LDL Cholesterol Direct 89 mg/dL (50-130) 05/04/21 07:25 HDL Cholesterol 48 mg/dL (40-59) 05/04/21 07:25 Cholesterol/HDL Ratio 2.91 % 05/04/21 07:25 Procalcitonin 0.63 ng/mL (<0.15) 05/09/21 15:53 Urine Color Yellow (Yellow) 05/26/21 09:50 Urine Turbidity Turbid (Clear) 05/26/21 09:50 Urine pH 5.0 (5.0-7.0) 05/26/21 09:50 Ur Specific [place] 1.014 (1.003-1.030) 05/26/21 09:50 Urine Protein 30 mg/dl mg/dL (Negative) 05/26/21 09:50 Urine Glucose (UA) Neg mg/dL (Negative) 05/26/21 09:50 Urine Ketones Neg mg/dL (Negative) 05/26/21 09:50 Urine Blood Sm (Negative) 05/26/21 09:50 Urine Nitrite Neg (Negative) 05/26/21 09:50 Urine Bilirubin Neg (Negative) 05/26/21 09:50 Urine Urobilinogen < 2.0 mg/dL (<2.0) 05/26/21 09:50 Ur Leukocyte Esterase Tr (Negative) 05/26/21 09:50 Urine WBC (Auto) 38.0 /HPF (0.0-6.0) H 05/26/21 09:50 Urine RBC (Auto) 5.0 /HPF (0.0-6.0) 05/26/21 09:50 U Epithel Cells (Auto) 1.0 /HPF (0-13.0) 05/23/21 16:30 Urine Bacteria (Auto) 1+ /HPF (Negative) 05/23/21 16:30 Uric Acid Crystals Few 05/09/21 00:40 Triple Phos Crystals 2+ 05/09/21 13:22 Amorphous Crystals 3+ 05/26/21 09:50 Granular Casts 20 /LPF 05/26/21 09:50 Urine Mucus Few /HPF 05/23/21 16:30 Urine Creatinine 100.1 mg/dL (0.1-20.0) H 05/23/21 16:30 Protein/Creatinin Ratio 0.42 05/10/21 11:03 Urine Sodium 25 mmol/L 05/23/21 16:30 Fraction Sodium Excret 0.3 05/23/21 16:30 Urine Total Protein 42 mg/dL (5-11.8) H 05/10/21 11:03 Urine Opiates Screen Negative 05/04/21 Unknown Urine Methadone Screen Negative 05/04/21 Unknown Ur Barbiturates Screen Negative 05/04/21 Unknown Ur Phencyclidine Scrn Negative 05/04/21 Unknown Ur Amphetamines Screen Positive 05/04/21 Unknown U Benzodiazepines Scrn Negative 05/04/21 Unknown Urine Cocaine Screen Negative 05/04/21 Unknown U Marijuana (THC) Screen Negative 05/04/21 Unknown Drugs of Abuse Note Disclamer 05/04/21 Unknown Immunofix Electrophor see below 05/05/21 03:40 AUDRA Screen Negative (Negative) 05/05/21 03:40 Proteinase 3 (PR3) Ab <1.0 AI (<1.0) 05/05/21 03:40 Myeloperoxidase Ab <1.0 AI (<1.0) 05/05/21 03:40 Complement C3 72 mg/dL (82-185) L 05/05/21 03:40 Complement C4 17 mg/dL (15-53) 05/05/21 03:40 Coronavirus (PCR) Positive (Negative) A 05/05/21 08:30 Hepatitis A IgM Ab Non-reactive (NonReactive) 05/05/21 03:40 Hep Bs Antigen Non-reactive (Negative) 05/05/21 03:40 Hep B Core IgM Ab Non-reactive (NonReactive) 05/05/21 03:40 Hepatitis C Antibody Reactive (NonReactive) A 05/05/21 03:40 Blood Type O POSITIVE 05/23/21 07:12 Antibody Screen Negative 05/23/21 07:12 Crossmatch See Detail 05/23/21 07:12 Microbiology: Microbiology 05/26/21 12:59 Peripheral/Venous Blood Culture - Preliminary NO GROWTH AFTER 48 HOURS 05/26/21 12:59 Peripheral/Venous Blood Culture - Preliminary NO GROWTH AFTER 48 HOURS 05/26/21 09:50 Tracheal Aspirate Sputum Culture - Preliminary 05/26/21 09:50 Urine,Clean Catch Urine Culture - Final NO GROWTH AFTER 48 HOURS Merino/IV: Voiding Method Indwelling Catheter Active Medications - Current Medications Current Medications: Generic Name Dose Route Start Last Admin Trade Name Freq PRN Reason Stop Dose Admin Acetaminophen 650 mg 05/04/21 12:34 05/28/21 13:41 Acetaminophen 325 Mg Tab PO 650 mg Q4H PRN Administration Pain MILD(1-3)/Fever >100.5/MARIA Acetaminophen 650 mg 05/07/21 16:00 05/11/21 16:25 Acetaminophen 650 Mg Rect Supp AR 650 mg Q4H PRN Administration Pain, Mild (1-3) Atorvastatin Calcium 40 mg 05/09/21 22:00 05/27/21 22:10 Atorvastatin 40 Mg Tab FEEDTUBE 40 mg QHS RISHI Administration Chlordiazepoxide HCl 25 mg 05/27/21 20:00 05/28/21 13:42 Chlordiazepoxide 25 Mg Cap PO 05/30/21 19:59 25 mg TID RISHI Administration Dextrose 0 ml 05/09/21 10:49 05/14/21 06:55 Dextrose 10% *Hypoglycemia IV 250 ml PRN PRN Administration Hypoglycemia Fentanyl 50 mcg 05/23/21 15:00 Fentanyl 100 Mcg/2 Ml Inj IV Q10MIN PRN ANALGESIA Haloperidol Lactate 5 mg 05/09/21 18:32 05/18/21 19:52 Haloperidol Lactate 5 Mg/1 Ml Inj IV 5 mg Q6H PRN Administration Agitation Heparin Sodium (Porcine) 5,000 unit 05/27/21 22:00 05/28/21 10:25 Heparin 5,000 Unit/1 Ml Vial SUB-Q 5,000 unit Q12HR RISHI Administration Hydralazine HCl 50 mg 05/04/21 14:00 05/28/21 14:40 Hydralazine 25 Mg Tab PO 50 mg Q8HR RISHI Administration Hydrophilic Ointment 1 applic 05/05/21 15:21 Lip Therapy Vaseline TP Q2HR PRN Dry Lips Fentanyl Citrate 2,000 mcg in 100 mls @ 4.082 mls/hr 05/23/21 15:00 Fentanyl Drip Premix IV TITR RISHI Protocol 1 MCG/KG/HR Ertapenem 1 gm/ Sodium 50 mls @ 100 mls/hr 05/26/21 14:00 05/28/21 10:25 Chloride IV 100 mls/hr QDAY RISHI Administration Vancomycin HCl 1,250 mg/ 275 mls @ 166.667 mls/hr 05/28/21 16:00 Sodium Chloride IV Q24H [facility] Insulin Human Lispro 0 unit 05/10/21 09:40 05/12/21 16:49 Insulin Lispro 100 Unit/Ml SUB-Q 2 unit Q6HR PRN Administration Hyperglycemia Protocol Labetalol HCl 10 mg 05/15/21 10:24 05/25/21 08:15 Labetalol 20 Mg/4 Ml Inj IV 10 mg Q4H PRN Administration sbp> 160. Lansoprazole 30 mg 05/26/21 10:00 05/28/21 10:25 Lansoprazole 30 Mg Solutab FEEDTUBE 30 mg BID RISHI Administration Metoprolol Tartrate 50 mg 05/26/21 08:00 05/28/21 13:42 Metoprolol Tartrate 25 Mg Tab FEEDTUBE 50 mg TID RISHI Administration Multi-Ingred Cream/Lotion/Oil/Oint 1 applic 05/05/21 15:21 Mineral Oil/Petrolatum, White Ophth Oint 3.5 Gm OU Q4HR PRN Dry Eye(s) Ondansetron HCl 4 mg 05/04/21 12:34 05/04/21 21:51 Ondansetron 4 Mg/2 Ml Inj IV 4 mg Q8H PRN Administration Nausea And Vomiting Polyethylene Glycol 17 gm 05/26/21 22:00 05/27/21 22:10 Polyethylene Glycol 3350 17 Gm Powder PO 17 gm QHS RISHI Administration Quetiapine Fumarate 100 mg 05/25/21 22:00 05/28/21 10:26 Quetiapine 100 Mg Tab PO 100 mg BID RISHI Administration Senna/Docusate Sodium 1 tab 05/05/21 22:00 05/28/21 10:26 Sennosides/Docusate Sodium 8.6/50 Mg Tab FEEDTUBE 1 tab BID RISHI Administration Sodium Chloride 10 ml 05/04/21 22:00 05/28/21 10:26 Sodium Chloride 0.9% 10 Ml Flush Syringe IV 10 ml BID RISHI Administration Sodium Chloride 10 ml 05/04/21 12:34 05/06/21 13:59 Sodium Chloride 0.9% 10 Ml Flush Syringe IV 10 ml PRN PRN Administration LINE FLUSH Sodium Chloride 10 ml 05/09/21 09:46 Sodium Chloride 0.9% 50 Ml Ivpb IV PRN PRN FLUSH Nutrition/Malnutrition Assess - Dietary Evaluation Nutrition/Malnutrition Findings: Nutrition Notes Start: 05/05/21 16:15 Freq: Status: Active Protocol: Document 05/27/21 15:02 ROSAURA (Rec: 05/27/21 15:07 ROSAURA [id number]) Nutrition Notes Initial or Follow up Reassessment Current Diagnosis Acute Kidney Injury, Hypertension,Heart Failure, Respiratory Failure Other Pertinent Diagnosis Severe COVID-19 pneu, metabolic encephalopathy, polysubstance dependence Current Diet TF - Nepro at 45ml/hr Labs/Tests BUN 56 Cr 1.8 Pertinent Medications Miralax Height 5 ft 7 in Weight 81.647 kg [place] Body Weight (kg) 67.27 BMI 28.1 Weight Status Overweight Subjective/Other Information Pt re-intubated on 05/23; rectal tube in place as well. Trach /PEG placement pending; awaiting family consent. Per RN, pt tolerating TF at goal rate. Percent of energy/protein needs met: 100% energy 89% pro Burn Absent Trauma Absent #1 Nutrition Diagnosis Inadequate oral intake Diagnosis Progress(for reassessment Continues documentation) Is patient on ventilator? Yes Is Patient Ambulatory and/or Out of Bed No REE-([facility]-confined to bed) [phone] Calculation Used for Recommendations [facility] Additional Notes Pro needs 1.2-2g/k-163g/ day Fluid needs 1ml/kcal Nutrition Intervention Nutrition Support: Continue Nepro at 45ml/hr with 200ml water flush q4h. Kcal 1,944 Protein (gm) 87 Carbohydrates (gm) 174 Fat (gm) 104 Fluid (mL) 785 Fiber (gm) 14 Goal #1 TF tolerance Goal #2 TF to meet at least 75% energy and pro needs Follow-Up By: 06/03/21 Additional Comments F/U: vent status, stable TF, trach/PEG placement
[2021-05-28] MEDS ORDERED: VANCOMYCIN 1,250 MG in SODIUM CHLORIDE 0.9% 250ML 250 ML IV SCH (16:00)
[2021-05-29] MEDS: hydrALAZINE 25 MG TAB PO SCH ×3 (07:05→21:00)
[2021-05-29] MEDS: ACETAMINOPHEN 325 MG TAB PO PRN ×3 (07:05→21:06)
[2021-05-29] MEDS: chlordiazePOXIDE 25 MG CAP PO SCH ×3 (08:42→21:00)
[2021-05-29] MEDS: METOPROLOL TARTRATE 25 MG TAB FEEDTUBE SCH ×3 (08:42→21:00)
[2021-05-29] MEDS: QUEtiapine 100 MG TAB PO SCH ×3 (09:04→21:00)
[2021-05-29] MEDS: ERTAPENEM 1 GM in SODIUM CHLORIDE 0.9% 50 ML IV SCH (09:04)
[2021-05-29] MEDS: HEPARIN 5,000 UNIT/1 ML VIAL SUB-Q SCH ×2 (09:04→21:00)
[2021-05-29] MEDS: LANSOPRAZOLE 30 MG SOLUTAB FEEDTUBE SCH ×2 (09:04→21:00)
[2021-05-29] MEDS: SENNOSIDES/DOCUSATE SODIUM 8.6/50 MG TAB FEEDTUBE SCH (09:05)
[2021-05-29 12:19] LABS: Hematocrit 27.2 % (35.5-45.6); Hemoglobin 8.7 gm/dl (11.8-15.2); Mean Corpuscular HGB Conc 32 % (32-34); Mean Corpuscular Volume 92 fl (84-94); Platelet Count 388 K/mm3 (140-440); Red Blood Count 2.94 M/mm3 (3.65-5.03); Red Cell Distribution Width 15.8 % (13.2-15.2)
--- NOTE | 2021-05-29 13:28 | Progress Note ---
Assessment and Plan Acute hypoxic resp failure on MVS COVID positive NSTEMI Acute kidney injury Cardiomyopathy EF 35-40% History of hepatitis C Elevated D-dimer. Low probability for PE seen on VQ scan Tobacco abuse Polysubstance abusepatient with positive methamphetamines and has a history of cocaine use Anemia - azotemia per nephrology - no new issues today, continue care as below; - daily SAT and SBT assessment as tolerated - continue to wean supplemental oxygen for target O2 sat's > 90% acutely - VAP bundle addressed - continue lung protective strategies - continue bronchodilators with pulmonary hygiene per RT - wean per pulmonary driven protocols otherwise - avoid nephrotoxins, renally dose all medications - continue accuchecks with glycemic control per SSI (While critically ill target blood glucose of 140-180 mg/dL; avoid hypoglycemia) - sedation prn for target RASS 0 to -1 - continue to avoid benzodiazepine's, reduce the possibility of delirium - prn analgesia per CPOT score - Maintenance of sleep-wake cycle, avoid delirium - continue enteral nutritional support at goal rate as tolerated - G.I. & VTE prophylaxis with Pantoprazole and Heparin - PT/OT/ROM exercises - continue mobility protocols for pressure ulcer prophylaxis - Monitor hemodynamics closely - continue other care per attending / other consultants - discharge planning ongoing concurrently COVID SPECIFIC INTERVENTIONS - Appears to have incidental COVID infection- Remdesivir not administered secondary to renal failure - continue systemic steroids for severe COVID-19 infection empirically (Dexamethasone) - follow repeat COVID tests results - zinc and vitamin C supplementation - Monitor inflammatory markers per facility protocol - ferritin, Ddimer, CRP - therapeutic anticoagulation per system Protocol based on d-dimer and clinical considerations (on therapeutic heparin for NSTEMI) - Continue contact and airborne isolation .... Re-evaluate in am & prn CONDITION: CRITICAL PROGNOSIS: GUARDED CODE STATUS: FULL CODE The high probability of a clinically significant, sudden or life-threatening deterioration of the [respiratory, cardiovascular & neurologic] system(s) required my full and direct attention, intervention and personal management. The aggregate critical care time was [32] minutes without overlap. Time includes spent on; [x] Data Review and interpretation [x] Patient assessment and monitoring of vital signs [x] Documentation [x] Medication orders and management Subjective Date of service: 05/29/21 Principal diagnosis: AHRF; COVID-19 infection; NSTEMI; YE; HFrEF (35-40%); Polysubstance abuse Interval history: Patient is seen today for: Acute hypoxemic Resp failure; COVID-19 infection; NSTEMI; YE; HFrEF (35-40%); Polysubstance abuse; Anemia Seen and examined at bedside; 24hour events reviewed; nursing and respiratory care staff consulted; no adverse overnight events reported to me; resting in bed; remains on MVS; azotemia improving; awaiting trach & PEG Objective Vital Signs - 12hr 05/29/21 05/29/21 05/29/21 02:00 03:00 03:25 Temperature 101 F H Pulse Rate 86 90 Pulse Rate [ From Monitor] Respiratory 24 27 H Rate Blood Pressure 147/85 148/93 O2 Sat by Pulse 95 96 Oximetry 05/29/21 05/29/21 05/29/21 04:00 04:57 05:00 Temperature Pulse Rate 90 88 88 Pulse Rate [ 82 From Monitor] Respiratory 23 24 Rate Blood Pressure 152/96 145/91 147/89 O2 Sat by Pulse 96 96 96 Oximetry 05/29/21 05/29/21 05/29/21 06:00 07:00 07:05 Temperature Pulse Rate 91 H 88 89 Pulse Rate [ From Monitor] Respiratory 29 H 25 H Rate Blood Pressure 151/95 149/92 149/92 O2 Sat by Pulse 96 96 Oximetry 05/29/21 05/29/21 05/29/21 07:54 08:00 08:05 Temperature 102 F H Pulse Rate 76 87 Pulse Rate [ From Monitor] Respiratory 21 Rate Blood Pressure 140/87 140/87 O2 Sat by Pulse 95 96 Oximetry 05/29/21 05/29/21 05/29/21 08:42 09:00 10:00 Temperature Pulse Rate 85 86 70 Pulse Rate [ From Monitor] Respiratory 30 H 22 Rate Blood Pressure 139/86 142/90 102/67 O2 Sat by Pulse 97 98 Oximetry Constitutional: appears uncomfortable, other (middle aged male with mildly increased respiratory effort at rest) Eyes: non-icteric ENT: oropharynx moist, other (ETT 24 cm ELIZABET) Neck: supple, no lymphadenopathy, no JVD Effort: mildly labored Ascultation: Bilateral: diminished breath sounds, rhonchi Percussion: Bilateral: not dull Cardiovascular: regular rate and rhythm, other (S1,S2) Gastrointestinal: normoactive bowel sounds, soft, non-tender, non-distended Integumentary: normal Extremities: no cyanosis, no edema, pulses normal Neurologic: non-focal exam (grossly), pupils equal and round, unable to assess (sedated) Psychiatric: other CBC and BMP: 05/29/21 11:16 05/29/21 11:16 ABG, PT/INR, D-dimer: ABG ABG pH 7.443 pH Units (7.350-7.450) 05/27/21 09:20 ABG pCO2 38.8 mm Hg 05/27/21 09:20 ABG pO2 115.2 mm Hg (80.0-90.0) H 05/27/21 09:20 ABG O2 Saturation 98.3 % (95.0-99.0) 05/27/21 09:20 PT/INR, D-dimer PT 14.9 Sec. (12.2-14.9) 05/25/21 04:25 INR 1.05 (0.87-1.13) 05/25/21 04:25 D-Dimer 2730.61 ng/mlDDU (0-234) H 05/12/21 07:19 Abnormal lab findings: Abnormal Labs 05/04/21 05/04/21 05/04/21 07:25 07:25 07:25 WBC 12.9 H RBC 3.04 L Hgb 9.5 L Hct 28.4 L MCV MCHC RDW 15.4 H Lymph % (Auto) 11.4 L [place] % (Auto) 10.1 H Lymph # (Auto) [place] # (Auto) 1.3 H Seg Neutrophils % 78.0 H Seg Neuts % (Manual) Lymphocytes % (Manual) Monocytes % (Manual) Seg Neutrophils # 10.0 H Seg Neutrophils # Man Lymphocytes # (Manual) Monocytes # (Manual) Haptoglobin PT 15.1 H APTT D-Dimer Heparin Anti-Xa Level ABG pH ABG pO2 ABG HCO3 ABG O2 Saturation ABG Base Excess ABG Hemoglobin Oxyhemoglobin Sodium 135 L Potassium Chloride Carbon Dioxide BUN 65 H Creatinine 3.4 H Glucose 118 H POC Glucose Calcium Phosphorus Magnesium Iron TIBC Ferritin Total Bilirubin 1.50 H AST 519 H ALT 475 H Lactate Dehydrogenase Total Creatine Kinase Troponin T 1.300 H* C-Reactive Protein Albumin Urine WBC (Auto) Urine Creatinine Urine Total Protein Complement C3 Coronavirus (PCR) Hepatitis C Antibody Crossmatch 05/04/21 05/04/21 05/04/21 07:25 08:42 08:42 WBC RBC Hgb Hct MCV MCHC RDW Lymph % (Auto) [place] % (Auto) Lymph # (Auto) [place] # (Auto) Seg Neutrophils % Seg Neuts % (Manual) Lymphocytes % (Manual) Monocytes % (Manual) Seg Neutrophils # Seg Neutrophils # Man Lymphocytes # (Manual) Monocytes # (Manual) Haptoglobin PT APTT D-Dimer 579.49 H Heparin Anti-Xa Level ABG pH ABG pO2 ABG HCO3 ABG O2 Saturation ABG Base Excess ABG Hemoglobin Oxyhemoglobin Sodium Potassium Chloride Carbon Dioxide BUN Creatinine Glucose POC Glucose Calcium Phosphorus Magnesium Iron TIBC Ferritin Total Bilirubin AST ALT Lactate Dehydrogenase Total Creatine Kinase 406 H Troponin T 1.230 H* C-Reactive Protein Albumin Urine WBC (Auto) Urine Creatinine Urine Total Protein Complement C3 Coronavirus (PCR) Hepatitis C Antibody Crossmatch 05/04/21 05/04/21 05/04/21 10:13 13:34 18:14 WBC RBC Hgb 8.8 L Hct 26.6 L MCV MCHC RDW Lymph % (Auto) [place] % (Auto) Lymph # (Auto) [place] # (Auto) Seg Neutrophils % Seg Neuts % (Manual) Lymphocytes % (Manual) Monocytes % (Manual) Seg Neutrophils # Seg Neutrophils # Man Lymphocytes # (Manual) Monocytes # (Manual) Haptoglobin PT APTT D-Dimer Heparin Anti-Xa Level < 0.10 L ABG pH ABG pO2 ABG HCO3 ABG O2 Saturation ABG Base Excess ABG Hemoglobin Oxyhemoglobin Sodium Potassium Chloride Carbon Dioxide BUN Creatinine Glucose POC Glucose Calcium Phosphorus Magnesium Iron TIBC Ferritin Total Bilirubin AST ALT Lactate Dehydrogenase Total Creatine Kinase Troponin T 1.400 H* C-Reactive Protein Albumin Urine WBC (Auto) Urine Creatinine Urine Total Protein Complement C3 Coronavirus (PCR) Hepatitis C Antibody Crossmatch 05/05/21 05/05/21 05/05/21 03:40 03:40 03:40 WBC RBC Hgb Hct MCV MCHC RDW Lymph % (Auto) [place] % (Auto) Lymph # (Auto) [place] # (Auto) Seg Neutrophils % Seg Neuts % (Manual) Lymphocytes % (Manual) Monocytes % (Manual) Seg Neutrophils # Seg Neutrophils # Man Lymphocytes # (Manual) Monocytes # (Manual) Haptoglobin PT APTT D-Dimer Heparin Anti-Xa Level 0.11 L ABG pH ABG pO2 ABG HCO3 ABG O2 Saturation ABG Base Excess ABG Hemoglobin Oxyhemoglobin Sodium Potassium 3.3 L Chloride Carbon Dioxide BUN 59 H Creatinine 2.6 H Glucose 139 H POC Glucose Calcium Phosphorus Magnesium Iron TIBC Ferritin Total Bilirubin AST ALT Lactate Dehydrogenase Total Creatine Kinase Troponin T C-Reactive Protein Albumin Urine WBC (Auto) Urine Creatinine Urine Total Protein Complement C3 Coronavirus (PCR) Hepatitis C Antibody Reactive A Crossmatch 05/05/21 05/05/21 05/05/21 03:40 08:30 09:57 WBC RBC Hgb Hct MCV MCHC RDW Lymph % (Auto) [place] % (Auto) Lymph # (Auto) [place] # (Auto) Seg Neutrophils % Seg Neuts % (Manual) Lymphocytes % (Manual) Monocytes % (Manual) Seg Neutrophils # Seg Neutrophils # Man Lymphocytes # (Manual) Monocytes # (Manual) Haptoglobin PT APTT D-Dimer Heparin Anti-Xa Level ABG pH ABG pO2 ABG HCO3 ABG O2 Saturation ABG Base Excess ABG Hemoglobin Oxyhemoglobin Sodium Potassium Chloride Carbon Dioxide BUN Creatinine Glucose POC Glucose Calcium Phosphorus Magnesium Iron TIBC Ferritin Total Bilirubin AST ALT Lactate Dehydrogenase Total Creatine Kinase Troponin T C-Reactive Protein Albumin Urine WBC (Auto) Urine Creatinine 100.8 H Urine Total Protein Complement C3 72 L Coronavirus (PCR) Positive A Hepatitis C Antibody Crossmatch 05/05/21 05/05/21 05/05/21 11:28 17:00 19:51 WBC RBC Hgb Hct MCV MCHC RDW Lymph % (Auto) [place] % (Auto) Lymph # (Auto) [place] # (Auto) Seg Neutrophils % Seg Neuts % (Manual) Lymphocytes % (Manual) Monocytes % (Manual) Seg Neutrophils # Seg Neutrophils # Man Lymphocytes # (Manual) Monocytes # (Manual) Haptoglobin PT APTT D-Dimer Heparin Anti-Xa Level 0.10 L 0.22 L ABG pH 7.304 L ABG pO2 140.8 H ABG HCO3 ABG O2 Saturation ABG Base Excess -2.1 L ABG Hemoglobin 10.2 L Oxyhemoglobin Sodium Potassium Chloride Carbon Dioxide BUN Creatinine Glucose POC Glucose Calcium Phosphorus Magnesium Iron TIBC Ferritin Total Bilirubin AST ALT Lactate Dehydrogenase Total Creatine Kinase Troponin T C-Reactive Protein Albumin Urine WBC (Auto) Urine Creatinine Urine Total Protein Complement C3 Coronavirus (PCR) Hepatitis C Antibody Crossmatch 05/06/21 05/06/21 05/06/21 03:47 06:15 17:53 WBC RBC Hgb 9.0 L Hct 27.8 L MCV MCHC RDW Lymph % (Auto) [place] % (Auto) Lymph # (Auto) [place] # (Auto) Seg Neutrophils % Seg Neuts % (Manual) Lymphocytes % (Manual) Monocytes % (Manual) Seg Neutrophils # Seg Neutrophils # Man Lymphocytes # (Manual) Monocytes # (Manual) Haptoglobin PT APTT D-Dimer Heparin Anti-Xa Level 0.10 L ABG pH ABG pO2 143.5 H ABG HCO3 ABG O2 Saturation ABG Base Excess -2.4 L ABG Hemoglobin 6.9 L Oxyhemoglobin Sodium Potassium Chloride Carbon Dioxide BUN Creatinine Glucose POC Glucose Calcium Phosphorus Magnesium Iron TIBC Ferritin Total Bilirubin AST ALT Lactate Dehydrogenase Total Creatine Kinase Troponin T C-Reactive Protein Albumin Urine WBC (Auto) Urine Creatinine Urine Total Protein Complement C3 Coronavirus (PCR) Hepatitis C Antibody Crossmatch 05/07/21 05/07/21 05/07/21 00:07 03:22 03:45 WBC RBC Hgb Hct MCV MCHC RDW Lymph % (Auto) [place] % (Auto) Lymph # (Auto) [place] # (Auto) Seg Neutrophils % Seg Neuts % (Manual) Lymphocytes % (Manual) Monocytes % (Manual) Seg Neutrophils # Seg Neutrophils # Man Lymphocytes # (Manual) Monocytes # (Manual) Haptoglobin PT APTT D-Dimer Heparin Anti-Xa Level < 0.10 L ABG pH ABG pO2 104.3 H ABG HCO3 ABG O2 Saturation ABG Base Excess -2.6 L ABG Hemoglobin 9.1 L Oxyhemoglobin Sodium Potassium Chloride 107.1 H Carbon Dioxide 20 L BUN 56 H Creatinine 2.9 H Glucose POC Glucose Calcium Phosphorus Magnesium Iron TIBC Ferritin Total Bilirubin AST ALT Lactate Dehydrogenase Total Creatine Kinase Troponin T C-Reactive Protein Albumin Urine WBC (Auto) Urine Creatinine Urine Total Protein Complement C3 Coronavirus (PCR) Hepatitis C Antibody Crossmatch 05/07/21 05/07/21 05/07/21 07:44 16:28 22:41 WBC RBC Hgb Hct MCV MCHC RDW Lymph % (Auto) [place] % (Auto) Lymph # (Auto) [place] # (Auto) Seg Neutrophils % Seg Neuts % (Manual) Lymphocytes % (Manual) Monocytes % (Manual) Seg Neutrophils # Seg Neutrophils # Man Lymphocytes # (Manual) Monocytes # (Manual) Haptoglobin PT APTT D-Dimer Heparin Anti-Xa Level < 0.10 L 0.10 L < 0.10 L ABG pH ABG pO2 ABG HCO3 ABG O2 Saturation ABG Base Excess ABG Hemoglobin Oxyhemoglobin Sodium Potassium Chloride Carbon Dioxide BUN Creatinine Glucose POC Glucose Calcium Phosphorus Magnesium Iron TIBC Ferritin Total Bilirubin AST ALT Lactate Dehydrogenase Total Creatine Kinase Troponin T C-Reactive Protein Albumin Urine WBC (Auto) Urine Creatinine Urine Total Protein Complement C3 Coronavirus (PCR) Hepatitis C Antibody Crossmatch 05/08/21 05/08/21 05/08/21 03:25 04:34 07:30 WBC 12.4 H RBC 3.02 L Hgb 9.5 L Hct 29.2 L MCV 97 H MCHC RDW 16.7 H Lymph % (Auto) 8.1 L [place] % (Auto) 11.0 H Lymph # (Auto) 1.0 L [place] # (Auto) 1.4 H Seg Neutrophils % 80.1 H Seg Neuts % (Manual) Lymphocytes % (Manual) Monocytes % (Manual) Seg Neutrophils # 9.9 H Seg Neutrophils # Man Lymphocytes # (Manual) Monocytes # (Manual) Haptoglobin PT APTT D-Dimer Heparin Anti-Xa Level ABG pH ABG pO2 139.0 H ABG HCO3 ABG O2 Saturation ABG Base Excess ABG Hemoglobin 8.8 L Oxyhemoglobin Sodium Potassium Chloride 110.5 H Carbon Dioxide BUN 59 H Creatinine 2.8 H Glucose 103 H POC Glucose Calcium Phosphorus Magnesium Iron TIBC Ferritin Total Bilirubin AST ALT 327 H Lactate Dehydrogenase Total Creatine Kinase Troponin T C-Reactive Protein Albumin 3.1 L Urine WBC (Auto) Urine Creatinine Urine Total Protein Complement C3 Coronavirus (PCR) Hepatitis C Antibody Crossmatch 05/09/21 05/09/21 05/09/21 04:10 04:20 04:20 WBC 11.7 H RBC 2.79 L Hgb 8.7 L Hct 26.5 L MCV 95 H MCHC RDW 16.2 H Lymph % (Auto) [place] % (Auto) Lymph # (Auto) [place] # (Auto) Seg Neutrophils % Seg Neuts % (Manual) Lymphocytes % (Manual) Monocytes % (Manual) Seg Neutrophils # Seg Neutrophils # Man Lymphocytes # (Manual) Monocytes # (Manual) Haptoglobin PT APTT D-Dimer Heparin Anti-Xa Level ABG pH ABG pO2 161.6 H ABG HCO3 ABG O2 Saturation ABG Base Excess ABG Hemoglobin 8.3 L Oxyhemoglobin Sodium 151 H Potassium Chloride 114.5 H Carbon Dioxide 21 L BUN 57 H Creatinine 2.4 H Glucose POC Glucose Calcium Phosphorus Magnesium Iron TIBC Ferritin Total Bilirubin AST ALT 210 H Lactate Dehydrogenase Total Creatine Kinase Troponin T C-Reactive Protein Albumin 2.9 L Urine WBC (Auto) Urine Creatinine Urine Total Protein Complement C3 Coronavirus (PCR) Hepatitis C Antibody Crossmatch 05/09/21 05/09/21 05/09/21 09:48 09:48 13:22 WBC 11.6 H RBC 3.00 L Hgb 9.0 L Hct 28.4 L MCV MCHC RDW 15.9 H Lymph % (Auto) 5.9 L [place] % (Auto) 8.9 H Lymph # (Auto) 0.7 L [place] # (Auto) 1.0 H Seg Neutrophils % 84.3 H Seg Neuts % (Manual) Lymphocytes % (Manual) Monocytes % (Manual) Seg Neutrophils # 9.8 H Seg Neutrophils # Man Lymphocytes # (Manual) Monocytes # (Manual) Haptoglobin PT APTT D-Dimer Heparin Anti-Xa Level ABG pH ABG pO2 ABG HCO3 ABG O2 Saturation ABG Base Excess ABG Hemoglobin Oxyhemoglobin Sodium Potassium Chloride Carbon Dioxide BUN Creatinine Glucose POC Glucose Calcium Phosphorus Magnesium Iron TIBC Ferritin Total Bilirubin AST ALT Lactate Dehydrogenase Total Creatine Kinase Troponin T C-Reactive Protein 8.70 H Albumin Urine WBC (Auto) 25.0 H Urine Creatinine Urine Total Protein Complement C3 Coronavirus (PCR) Hepatitis C Antibody Crossmatch 05/09/21 05/09/21 05/10/21 15:20 18:16 04:57 WBC RBC 2.87 L Hgb 8.8 L Hct 27.0 L MCV MCHC RDW 15.9 H Lymph % (Auto) [place] % (Auto) Lymph # (Auto) [place] # (Auto) Seg Neutrophils % Seg Neuts % (Manual) Lymphocytes % (Manual) Monocytes % (Manual) Seg Neutrophils # Seg Neutrophils # Man Lymphocytes # (Manual) Monocytes # (Manual) Haptoglobin PT APTT D-Dimer Heparin Anti-Xa Level ABG pH ABG pO2 102.0 H ABG HCO3 ABG O2 Saturation ABG Base Excess -2.8 L ABG Hemoglobin 9.0 L Oxyhemoglobin Sodium Potassium Chloride Carbon Dioxide BUN Creatinine Glucose POC Glucose 130 H Calcium Phosphorus Magnesium Iron TIBC Ferritin Total Bilirubin AST ALT Lactate Dehydrogenase Total Creatine Kinase Troponin T C-Reactive Protein Albumin Urine WBC (Auto) Urine Creatinine Urine Total Protein Complement C3 Coronavirus (PCR) Hepatitis C Antibody Crossmatch 05/10/21 05/10/21 05/10/21 04:57 04:57 04:57 WBC RBC Hgb Hct MCV MCHC RDW Lymph % (Auto) [place] % (Auto) Lymph # (Auto) [place] # (Auto) Seg Neutrophils % Seg Neuts % (Manual) Lymphocytes % (Manual) Monocytes % (Manual) Seg Neutrophils # Seg Neutrophils # Man Lymphocytes # (Manual) Monocytes # (Manual) Haptoglobin PT APTT D-Dimer 1546.78 H Heparin Anti-Xa Level ABG pH ABG pO2 ABG HCO3 ABG O2 Saturation ABG Base Excess ABG Hemoglobin Oxyhemoglobin Sodium 148 H Potassium Chloride 114.9 H Carbon Dioxide 21 L BUN 57 H Creatinine 2.3 H Glucose 157 H POC Glucose Calcium Phosphorus Magnesium Iron TIBC Ferritin 888.2 H Total Bilirubin AST ALT Lactate Dehydrogenase 289 H Total Creatine Kinase Troponin T C-Reactive Protein 6.80 H Albumin Urine WBC (Auto) Urine Creatinine Urine Total Protein Complement C3 Coronavirus (PCR) Hepatitis C Antibody Crossmatch 05/10/21 05/10/21 05/10/21 05:09 08:04 11:03 WBC RBC Hgb Hct MCV MCHC RDW Lymph % (Auto) [place] % (Auto) Lymph # (Auto) [place] # (Auto) Seg Neutrophils % Seg Neuts % (Manual) Lymphocytes % (Manual) Monocytes % (Manual) Seg Neutrophils # Seg Neutrophils # Man Lymphocytes # (Manual) Monocytes # (Manual) Haptoglobin PT APTT D-Dimer Heparin Anti-Xa Level ABG pH 7.473 H ABG pO2 114.6 H ABG HCO3 ABG O2 Saturation ABG Base Excess ABG Hemoglobin 9.5 L Oxyhemoglobin Sodium Potassium Chloride Carbon Dioxide BUN Creatinine Glucose POC Glucose 152 H Calcium Phosphorus Magnesium Iron TIBC Ferritin Total Bilirubin AST ALT Lactate Dehydrogenase Total Creatine Kinase Troponin T C-Reactive Protein Albumin Urine WBC (Auto) Urine Creatinine 100.8 H Urine Total Protein 42 H Complement C3 Coronavirus (PCR) Hepatitis C Antibody Crossmatch 05/10/21 05/10/21 05/10/21 13:07 18:01 23:31 WBC RBC Hgb Hct MCV MCHC RDW Lymph % (Auto) [place] % (Auto) Lymph # (Auto) [place] # (Auto) Seg Neutrophils % Seg Neuts % (Manual) Lymphocytes % (Manual) Monocytes % (Manual) Seg Neutrophils # Seg Neutrophils # Man Lymphocytes # (Manual) Monocytes # (Manual) Haptoglobin PT APTT D-Dimer Heparin Anti-Xa Level ABG pH ABG pO2 ABG HCO3 ABG O2 Saturation ABG Base Excess ABG Hemoglobin Oxyhemoglobin Sodium Potassium Chloride Carbon Dioxide BUN Creatinine Glucose POC Glucose 150 H 189 H 142 H Calcium Phosphorus Magnesium Iron TIBC Ferritin Total Bilirubin AST ALT Lactate Dehydrogenase Total Creatine Kinase Troponin T C-Reactive Protein Albumin Urine WBC (Auto) Urine Creatinine Urine Total Protein Complement C3 Coronavirus (PCR) Hepatitis C Antibody Crossmatch 05/10/21 05/11/21 05/11/21 Unknown 05:25 06:53 WBC RBC Hgb Hct MCV MCHC RDW Lymph % (Auto) [place] % (Auto) Lymph # (Auto) [place] # (Auto) Seg Neutrophils % Seg Neuts % (Manual) Lymphocytes % (Manual) Monocytes % (Manual) Seg Neutrophils # Seg Neutrophils # Man Lymphocytes # (Manual) Monocytes # (Manual) Haptoglobin PT APTT D-Dimer Heparin Anti-Xa Level ABG pH ABG pO2 126.6 H ABG HCO3 ABG O2 Saturation ABG Base Excess ABG Hemoglobin 9.2 L Oxyhemoglobin Sodium 150 H Potassium Chloride 116.6 H Carbon Dioxide 21 L BUN 62 H Creatinine 2.5 H Glucose 142 H POC Glucose 163 H Calcium Phosphorus Magnesium Iron TIBC Ferritin Total Bilirubin AST ALT Lactate Dehydrogenase Total Creatine Kinase Troponin T C-Reactive Protein Albumin Urine WBC (Auto) Urine Creatinine Urine Total Protein Complement C3 Coronavirus (PCR) Hepatitis C Antibody Crossmatch 05/11/21 05/11/21 05/11/21 06:53 11:06 13:51 WBC RBC 3.07 L Hgb 9.3 L Hct 29.0 L MCV 95 H MCHC RDW 16.1 H Lymph % (Auto) [place] % (Auto) Lymph # (Auto) [place] # (Auto) Seg Neutrophils % Seg Neuts % (Manual) Lymphocytes % (Manual) Monocytes % (Manual) Seg Neutrophils # Seg Neutrophils # Man Lymphocytes # (Manual) Monocytes # (Manual) Haptoglobin PT APTT D-Dimer Heparin Anti-Xa Level ABG pH ABG pO2 74.9 L ABG HCO3 ABG O2 Saturation ABG Base Excess -3.3 L ABG Hemoglobin 10.8 L Oxyhemoglobin Sodium Potassium Chloride Carbon Dioxide BUN Creatinine Glucose POC Glucose 145 H Calcium Phosphorus Magnesium Iron TIBC Ferritin Total Bilirubin AST ALT Lactate Dehydrogenase Total Creatine Kinase Troponin T C-Reactive Protein Albumin Urine WBC (Auto) Urine Creatinine Urine Total Protein Complement C3 Coronavirus (PCR) Hepatitis C Antibody Crossmatch 05/11/21 05/11/21 05/11/21 14:43 14:43 15:47 WBC RBC Hgb 9.2 L Hct 29.7 L MCV MCHC RDW Lymph % (Auto) [place] % (Auto) Lymph # (Auto) [place] # (Auto) Seg Neutrophils % Seg Neuts % (Manual) Lymphocytes % (Manual) Monocytes % (Manual) Seg Neutrophils # Seg Neutrophils # Man Lymphocytes # (Manual) Monocytes # (Manual) Haptoglobin PT 15.6 H APTT D-Dimer Heparin Anti-Xa Level ABG pH ABG pO2 ABG HCO3 ABG O2 Saturation ABG Base Excess ABG Hemoglobin Oxyhemoglobin Sodium Potassium Chloride Carbon Dioxide BUN Creatinine Glucose POC Glucose 137 H Calcium Phosphorus Magnesium Iron TIBC Ferritin Total Bilirubin AST ALT Lactate Dehydrogenase Total Creatine Kinase Troponin T C-Reactive Protein Albumin Urine WBC (Auto) Urine Creatinine Urine Total Protein Complement C3 Coronavirus (PCR) Hepatitis C Antibody Crossmatch 05/12/21 05/12/21 05/12/21 00:04 05:07 07:19 WBC 11.9 H RBC 3.00 L Hgb 9.1 L Hct 28.9 L MCV 96 H MCHC RDW 16.7 H Lymph % (Auto) 11.5 L [place] % (Auto) 8.2 H Lymph # (Auto) [place] # (Auto) 1.0 H Seg Neutrophils % 80.0 H Seg Neuts % (Manual) Lymphocytes % (Manual) Monocytes % (Manual) Seg Neutrophils # 9.6 H Seg Neutrophils # Man Lymphocytes # (Manual) Monocytes # (Manual) Haptoglobin PT APTT D-Dimer Heparin Anti-Xa Level ABG pH ABG pO2 ABG HCO3 ABG O2 Saturation ABG Base Excess ABG Hemoglobin Oxyhemoglobin Sodium Potassium Chloride Carbon Dioxide BUN Creatinine Glucose POC Glucose 121 H 117 H Calcium Phosphorus Magnesium Iron TIBC Ferritin Total Bilirubin AST ALT Lactate Dehydrogenase Total Creatine Kinase Troponin T C-Reactive Protein Albumin Urine WBC (Auto) Urine Creatinine Urine Total Protein Complement C3 Coronavirus (PCR) Hepatitis C Antibody Crossmatch 05/12/21 05/12/21 05/12/21 07:19 07:19 07:19 WBC RBC Hgb Hct MCV MCHC RDW Lymph % (Auto) [place] % (Auto) Lymph # (Auto) [place] # (Auto) Seg Neutrophils % Seg Neuts % (Manual) Lymphocytes % (Manual) Monocytes % (Manual) Seg Neutrophils # Seg Neutrophils # Man Lymphocytes # (Manual) Monocytes # (Manual) Haptoglobin PT APTT D-Dimer 2730.61 H Heparin Anti-Xa Level ABG pH ABG pO2 ABG HCO3 ABG O2 Saturation ABG Base Excess ABG Hemoglobin Oxyhemoglobin Sodium 146 H Potassium 5.1 H Chloride 112.4 H Carbon Dioxide 21 L BUN 61 H Creatinine 2.2 H Glucose 136 H POC Glucose Calcium 8.1 L Phosphorus Magnesium Iron TIBC Ferritin 640.2 H Total Bilirubin AST ALT Lactate Dehydrogenase 314 H Total Creatine Kinase Troponin T C-Reactive Protein 1.60 H Albumin Urine WBC (Auto) Urine Creatinine Urine Total Protein Complement C3 Coronavirus (PCR) Hepatitis C Antibody Crossmatch 05/12/21 05/12/21 05/12/21 11:10 16:10 16:38 WBC RBC Hgb Hct MCV MCHC RDW Lymph % (Auto) [place] % (Auto) Lymph # (Auto) [place] # (Auto) Seg Neutrophils % Seg Neuts % (Manual) Lymphocytes % (Manual) Monocytes % (Manual) Seg Neutrophils # Seg Neutrophils # Man Lymphocytes # (Manual) Monocytes # (Manual) Haptoglobin PT APTT D-Dimer Heparin Anti-Xa Level 0.20 L ABG pH ABG pO2 ABG HCO3 ABG O2 Saturation ABG Base Excess ABG Hemoglobin Oxyhemoglobin Sodium Potassium Chloride Carbon Dioxide BUN Creatinine Glucose POC Glucose 131 H 157 H Calcium Phosphorus Magnesium Iron TIBC Ferritin Total Bilirubin AST ALT Lactate Dehydrogenase Total Creatine Kinase Troponin T C-Reactive Protein Albumin Urine WBC (Auto) Urine Creatinine Urine Total Protein Complement C3 Coronavirus (PCR) Hepatitis C Antibody Crossmatch 05/12/21 05/13/21 05/13/21 23:30 00:12 04:20 WBC RBC Hgb Hct MCV MCHC RDW Lymph % (Auto) [place] % (Auto) Lymph # (Auto) [place] # (Auto) Seg Neutrophils % Seg Neuts % (Manual) Lymphocytes % (Manual) Monocytes % (Manual) Seg Neutrophils # Seg Neutrophils # Man Lymphocytes # (Manual) Monocytes # (Manual) Haptoglobin PT APTT D-Dimer Heparin Anti-Xa Level 0.13 L ABG pH ABG pO2 ABG HCO3 ABG O2 Saturation ABG Base Excess ABG Hemoglobin Oxyhemoglobin Sodium Potassium Chloride 111.2 H Carbon Dioxide BUN 53 H Creatinine 1.9 H Glucose 121 H POC Glucose 115 H Calcium 8.3 L Phosphorus Magnesium Iron TIBC Ferritin Total Bilirubin AST ALT Lactate Dehydrogenase Total Creatine Kinase Troponin T C-Reactive Protein Albumin Urine WBC (Auto) Urine Creatinine Urine Total Protein Complement C3 Coronavirus (PCR) Hepatitis C Antibody Crossmatch 05/13/21 05/13/21 05/13/21 04:20 11:15 11:29 WBC 13.1 H RBC 2.86 L Hgb 8.5 L Hct 26.9 L MCV MCHC RDW 15.7 H Lymph % (Auto) [place] % (Auto) Lymph # (Auto) [place] # (Auto) Seg Neutrophils % Seg Neuts % (Manual) Lymphocytes % (Manual) Monocytes % (Manual) Seg Neutrophils # Seg Neutrophils # Man Lymphocytes # (Manual) Monocytes # (Manual) Haptoglobin PT APTT D-Dimer Heparin Anti-Xa Level ABG pH 7.456 H ABG pO2 106.0 H ABG HCO3 ABG O2 Saturation ABG Base Excess ABG Hemoglobin 7.1 L Oxyhemoglobin Sodium Potassium Chloride Carbon Dioxide BUN Creatinine Glucose POC Glucose 121 H Calcium Phosphorus Magnesium Iron TIBC Ferritin Total Bilirubin AST ALT Lactate Dehydrogenase Total Creatine Kinase Troponin T C-Reactive Protein Albumin Urine WBC (Auto) Urine Creatinine Urine Total Protein Complement C3 Coronavirus (PCR) Hepatitis C Antibody Crossmatch 05/13/21 05/13/21 05/14/21 16:38 23:43 04:26 WBC 14.2 H RBC 3.11 L Hgb 9.4 L Hct 29.3 L MCV MCHC RDW 15.4 H Lymph % (Auto) [place] % (Auto) Lymph # (Auto) [place] # (Auto) Seg Neutrophils % Seg Neuts % (Manual) Lymphocytes % (Manual) Monocytes % (Manual) Seg Neutrophils # Seg Neutrophils # Man Lymphocytes # (Manual) Monocytes # (Manual) Haptoglobin PT APTT D-Dimer Heparin Anti-Xa Level ABG pH ABG pO2 ABG HCO3 ABG O2 Saturation ABG Base Excess ABG Hemoglobin Oxyhemoglobin Sodium Potassium Chloride Carbon Dioxide BUN Creatinine Glucose POC Glucose 119 H 55 L Calcium Phosphorus Magnesium Iron TIBC Ferritin Total Bilirubin AST ALT Lactate Dehydrogenase Total Creatine Kinase Troponin T C-Reactive Protein Albumin Urine WBC (Auto) Urine Creatinine Urine Total Protein Complement C3 Coronavirus (PCR) Hepatitis C Antibody Crossmatch 05/14/21 05/14/21 05/14/21 04:26 05:26 06:51 WBC RBC Hgb Hct MCV MCHC RDW Lymph % (Auto) [place] % (Auto) Lymph # (Auto) [place] # (Auto) Seg Neutrophils % Seg Neuts % (Manual) Lymphocytes % (Manual) Monocytes % (Manual) Seg Neutrophils # Seg Neutrophils # Man Lymphocytes # (Manual) Monocytes # (Manual) Haptoglobin PT APTT D-Dimer Heparin Anti-Xa Level ABG pH ABG pO2 ABG HCO3 ABG O2 Saturation ABG Base Excess ABG Hemoglobin Oxyhemoglobin Sodium Potassium 3.4 L Chloride 107.6 H Carbon Dioxide BUN 42 H Creatinine 1.9 H Glucose POC Glucose 51 L 62 L Calcium Phosphorus Magnesium Iron TIBC Ferritin Total Bilirubin AST ALT Lactate Dehydrogenase Total Creatine Kinase Troponin T C-Reactive Protein Albumin Urine WBC (Auto) Urine Creatinine Urine Total Protein Complement C3 Coronavirus (PCR) Hepatitis C Antibody Crossmatch 05/14/21 05/14/21 05/14/21 09:58 12:05 12:08 WBC RBC Hgb Hct MCV MCHC RDW Lymph % (Auto) [place] % (Auto) Lymph # (Auto) [place] # (Auto) Seg Neutrophils % Seg Neuts % (Manual) Lymphocytes % (Manual) Monocytes % (Manual) Seg Neutrophils # Seg Neutrophils # Man Lymphocytes # (Manual) Monocytes # (Manual) Haptoglobin PT APTT D-Dimer Heparin Anti-Xa Level ABG pH ABG pO2 ABG HCO3 ABG O2 Saturation ABG Base Excess ABG Hemoglobin Oxyhemoglobin Sodium Potassium 3.4 L Chloride Carbon Dioxide BUN 36 H Creatinine 1.8 H Glucose 133 H POC Glucose 60 L 127 H Calcium Phosphorus Magnesium Iron TIBC Ferritin Total Bilirubin AST ALT Lactate Dehydrogenase Total Creatine Kinase Troponin T C-Reactive Protein Albumin Urine WBC (Auto) Urine Creatinine Urine Total Protein Complement C3 Coronavirus (PCR) Hepatitis C Antibody Crossmatch 05/14/21 05/14/21 05/15/21 17:20 23:37 05:34 WBC RBC Hgb Hct MCV MCHC RDW Lymph % (Auto) [place] % (Auto) Lymph # (Auto) [place] # (Auto) Seg Neutrophils % Seg Neuts % (Manual) Lymphocytes % (Manual) Monocytes % (Manual) Seg Neutrophils # Seg Neutrophils # Man Lymphocytes # (Manual) Monocytes # (Manual) Haptoglobin PT APTT D-Dimer Heparin Anti-Xa Level ABG pH ABG pO2 ABG HCO3 ABG O2 Saturation ABG Base Excess ABG Hemoglobin Oxyhemoglobin Sodium Potassium Chloride Carbon Dioxide BUN Creatinine Glucose POC Glucose 144 H 115 H 119 H Calcium Phosphorus Magnesium Iron TIBC Ferritin Total Bilirubin AST ALT Lactate Dehydrogenase Total Creatine Kinase Troponin T C-Reactive Protein Albumin Urine WBC (Auto) Urine Creatinine Urine Total Protein Complement C3 Coronavirus (PCR) Hepatitis C Antibody Crossmatch 05/15/21 05/15/21 05/15/21 07:26 07:26 14:35 WBC 13.8 H RBC 3.32 L Hgb 10.0 L Hct 31.2 L MCV MCHC RDW 16.0 H Lymph % (Auto) [place] % (Auto) Lymph # (Auto) [place] # (Auto) Seg Neutrophils % Seg Neuts % (Manual) Lymphocytes % (Manual) Monocytes % (Manual) Seg Neutrophils # Seg Neutrophils # Man Lymphocytes # (Manual) Monocytes # (Manual) Haptoglobin PT APTT D-Dimer Heparin Anti-Xa Level ABG pH ABG pO2 ABG HCO3 ABG O2 Saturation ABG Base Excess ABG Hemoglobin Oxyhemoglobin Sodium 149 H D Potassium 3.5 L Chloride 113.2 H Carbon Dioxide BUN 29 H Creatinine 1.8 H Glucose 113 H POC Glucose 143 H Calcium Phosphorus Magnesium Iron TIBC Ferritin Total Bilirubin AST ALT Lactate Dehydrogenase Total Creatine Kinase Troponin T C-Reactive Protein Albumin Urine WBC (Auto) Urine Creatinine Urine Total Protein Complement C3 Coronavirus (PCR) Hepatitis C Antibody Crossmatch 05/16/21 05/16/21 05/16/21 06:12 08:43 10:05 WBC RBC Hgb Hct MCV MCHC RDW Lymph % (Auto) [place] % (Auto) Lymph # (Auto) [place] # (Auto) Seg Neutrophils % Seg Neuts % (Manual) Lymphocytes % (Manual) Monocytes % (Manual) Seg Neutrophils # Seg Neutrophils # Man Lymphocytes # (Manual) Monocytes # (Manual) Haptoglobin PT APTT D-Dimer Heparin Anti-Xa Level 0.21 L ABG pH ABG pO2 240.8 H ABG HCO3 ABG O2 Saturation 99.4 H ABG Base Excess -2.6 L ABG Hemoglobin 10.7 L Oxyhemoglobin Sodium Potassium Chloride Carbon Dioxide BUN Creatinine Glucose POC Glucose 34 L Calcium Phosphorus Magnesium Iron TIBC Ferritin Total Bilirubin AST ALT Lactate Dehydrogenase Total Creatine Kinase Troponin T C-Reactive Protein Albumin Urine WBC (Auto) Urine Creatinine Urine Total Protein Complement C3 Coronavirus (PCR) Hepatitis C Antibody Crossmatch 05/16/21 05/16/21 05/16/21 10:21 10:21 13:14 WBC 27.6 H RBC Hgb 11.4 L Hct MCV 99 H MCHC 30 L RDW 18.1 H Lymph % (Auto) [place] % (Auto) Lymph # (Auto) [place] # (Auto) Seg Neutrophils % Seg Neuts % (Manual) 83.0 H Lymphocytes % (Manual) 4.0 L Monocytes % (Manual) 9.0 H Seg Neutrophils # Seg Neutrophils # Man 22.9 H Lymphocytes # (Manual) 1.1 L Monocytes # (Manual) 2.5 H Haptoglobin PT APTT D-Dimer Heparin Anti-Xa Level ABG pH ABG pO2 ABG HCO3 ABG O2 Saturation ABG Base Excess ABG Hemoglobin Oxyhemoglobin Sodium Potassium Chloride 108.8 H Carbon Dioxide 17 L BUN 26 H Creatinine 1.9 H Glucose 141 H POC Glucose Calcium Phosphorus Magnesium Iron TIBC Ferritin Total Bilirubin AST ALT Lactate Dehydrogenase Total Creatine Kinase Troponin T 0.503 H* C-Reactive Protein Albumin 3.1 L Urine WBC (Auto) Urine Creatinine Urine Total Protein Complement C3 Coronavirus (PCR) Hepatitis C Antibody Crossmatch 05/16/21 05/17/21 05/17/21 18:40 00:02 04:52 WBC RBC Hgb 8.8 L Hct 28.5 L D MCV MCHC RDW Lymph % (Auto) [place] % (Auto) Lymph # (Auto) [place] # (Auto) Seg Neutrophils % Seg Neuts % (Manual) Lymphocytes % (Manual) Monocytes % (Manual) Seg Neutrophils # Seg Neutrophils # Man Lymphocytes # (Manual) Monocytes # (Manual) Haptoglobin PT APTT D-Dimer Heparin Anti-Xa Level ABG pH ABG pO2 ABG HCO3 ABG O2 Saturation ABG Base Excess ABG Hemoglobin Oxyhemoglobin Sodium Potassium Chloride Carbon Dioxide BUN Creatinine Glucose POC Glucose 114 H Calcium Phosphorus Magnesium Iron TIBC Ferritin Total Bilirubin AST ALT Lactate Dehydrogenase Total Creatine Kinase Troponin T 0.400 H* D C-Reactive Protein Albumin Urine WBC (Auto) Urine Creatinine Urine Total Protein Complement C3 Coronavirus (PCR) Hepatitis C Antibody Crossmatch 05/17/21 05/17/21 05/17/21 04:52 05:15 06:50 WBC RBC Hgb Hct MCV MCHC RDW Lymph % (Auto) [place] % (Auto) Lymph # (Auto) [place] # (Auto) Seg Neutrophils % Seg Neuts % (Manual) Lymphocytes % (Manual) Monocytes % (Manual) Seg Neutrophils # Seg Neutrophils # Man Lymphocytes # (Manual) Monocytes # (Manual) Haptoglobin PT APTT D-Dimer Heparin Anti-Xa Level ABG pH ABG pO2 193.7 H ABG HCO3 27.7 H ABG O2 Saturation 99.2 H ABG Base Excess 3.4 H ABG Hemoglobin 9.2 L Oxyhemoglobin Sodium 146 H Potassium Chloride 110.3 H Carbon Dioxide BUN 33 H Creatinine 2.3 H Glucose 120 H POC Glucose 109 H Calcium Phosphorus Magnesium Iron TIBC Ferritin Total Bilirubin AST ALT Lactate Dehydrogenase Total Creatine Kinase Troponin T C-Reactive Protein Albumin Urine WBC (Auto) Urine Creatinine Urine Total Protein Complement C3 Coronavirus (PCR) Hepatitis C Antibody Crossmatch 05/17/21 05/17/21 05/17/21 10:30 11:33 15:35 WBC RBC Hgb Hct MCV MCHC RDW Lymph % (Auto) [place] % (Auto) Lymph # (Auto) [place] # (Auto) Seg Neutrophils % Seg Neuts % (Manual) Lymphocytes % (Manual) Monocytes % (Manual) Seg Neutrophils # Seg Neutrophils # Man Lymphocytes # (Manual) Monocytes # (Manual) Haptoglobin PT APTT D-Dimer Heparin Anti-Xa Level ABG pH 7.457 H ABG pO2 162.5 H 103.7 H ABG HCO3 27.7 H 27.5 H ABG O2 Saturation ABG Base Excess 3.6 H ABG Hemoglobin 10.1 L 11.5 L Oxyhemoglobin Sodium Potassium Chloride Carbon Dioxide BUN Creatinine Glucose POC Glucose 122 H Calcium Phosphorus Magnesium Iron TIBC Ferritin Total Bilirubin AST ALT Lactate Dehydrogenase Total Creatine Kinase Troponin T C-Reactive Protein Albumin Urine WBC (Auto) Urine Creatinine Urine Total Protein Complement C3 Coronavirus (PCR) Hepatitis C Antibody Crossmatch 05/17/21 05/17/21 05/17/21 16:21 18:18 23:29 WBC RBC Hgb 9.6 L Hct 30.3 L MCV MCHC RDW Lymph % (Auto) [place] % (Auto) Lymph # (Auto) [place] # (Auto) Seg Neutrophils % Seg Neuts % (Manual) Lymphocytes % (Manual) Monocytes % (Manual) Seg Neutrophils # Seg Neutrophils # Man Lymphocytes # (Manual) Monocytes # (Manual) Haptoglobin PT APTT D-Dimer Heparin Anti-Xa Level ABG pH ABG pO2 ABG HCO3 ABG O2 Saturation ABG Base Excess ABG Hemoglobin Oxyhemoglobin Sodium Potassium Chloride Carbon Dioxide BUN Creatinine Glucose POC Glucose 133 H 111 H Calcium Phosphorus Magnesium Iron TIBC Ferritin Total Bilirubin AST ALT Lactate Dehydrogenase Total Creatine Kinase Troponin T C-Reactive Protein Albumin Urine WBC (Auto) Urine Creatinine Urine Total Protein Complement C3 Coronavirus (PCR) Hepatitis C Antibody Crossmatch 05/18/21 05/18/21 05/18/21 04:15 04:15 05:01 WBC 16.8 H RBC 3.03 L Hgb 8.9 L Hct 28.7 L MCV 95 H MCHC 31 L RDW 16.4 H Lymph % (Auto) [place] % (Auto) Lymph # (Auto) [place] # (Auto) Seg Neutrophils % Seg Neuts % (Manual) Lymphocytes % (Manual) Monocytes % (Manual) Seg Neutrophils # Seg Neutrophils # Man Lymphocytes # (Manual) Monocytes # (Manual) Haptoglobin PT APTT D-Dimer Heparin Anti-Xa Level ABG pH ABG pO2 ABG HCO3 ABG O2 Saturation ABG Base Excess ABG Hemoglobin Oxyhemoglobin Sodium Potassium Chloride Carbon Dioxide BUN 40 H Creatinine 2.1 H Glucose 115 H POC Glucose 113 H Calcium Phosphorus Magnesium Iron TIBC Ferritin Total Bilirubin AST ALT Lactate Dehydrogenase Total Creatine Kinase Troponin T C-Reactive Protein Albumin Urine WBC (Auto) Urine Creatinine Urine Total Protein Complement C3 Coronavirus (PCR) Hepatitis C Antibody Crossmatch 05/18/21 05/18/21 05/19/21 11:18 12:50 05:23 WBC 18.5 H RBC 3.31 L Hgb 9.9 L Hct 31.1 L MCV MCHC RDW 16.9 H Lymph % (Auto) [place] % (Auto) Lymph # (Auto) [place] # (Auto) Seg Neutrophils % Seg Neuts % (Manual) Lymphocytes % (Manual) Monocytes % (Manual) Seg Neutrophils # Seg Neutrophils # Man Lymphocytes # (Manual) Monocytes # (Manual) Haptoglobin PT APTT D-Dimer Heparin Anti-Xa Level ABG pH ABG pO2 79.6 L ABG HCO3 28.0 H ABG O2 Saturation ABG Base Excess 3.3 H ABG Hemoglobin 6.2 L Oxyhemoglobin Sodium Potassium Chloride Carbon Dioxide BUN Creatinine Glucose POC Glucose 129 H Calcium Phosphorus Magnesium Iron TIBC Ferritin Total Bilirubin AST ALT Lactate Dehydrogenase Total Creatine Kinase Troponin T C-Reactive Protein Albumin Urine WBC (Auto) Urine Creatinine Urine Total Protein Complement C3 Coronavirus (PCR) Hepatitis C Antibody Crossmatch 05/19/21 05/19/21 05/19/21 05:23 05:23 11:24 WBC RBC Hgb Hct MCV MCHC RDW Lymph % (Auto) [place] % (Auto) Lymph # (Auto) [place] # (Auto) Seg Neutrophils % Seg Neuts % (Manual) Lymphocytes % (Manual) Monocytes % (Manual) Seg Neutrophils # Seg Neutrophils # Man Lymphocytes # (Manual) Monocytes # (Manual) Haptoglobin PT APTT D-Dimer Heparin Anti-Xa Level ABG pH ABG pO2 ABG HCO3 ABG O2 Saturation ABG Base Excess ABG Hemoglobin Oxyhemoglobin Sodium Potassium Chloride Carbon Dioxide BUN 35 H 34 H Creatinine 2.0 H 2.1 H Glucose POC Glucose 111 H Calcium Phosphorus Magnesium Iron TIBC Ferritin Total Bilirubin AST ALT Lactate Dehydrogenase Total Creatine Kinase Troponin T C-Reactive Protein Albumin Urine WBC (Auto) Urine Creatinine Urine Total Protein Complement C3 Coronavirus (PCR) Hepatitis C Antibody Crossmatch 05/19/21 05/19/21 05/19/21 16:33 19:36 23:47 WBC RBC Hgb Hct MCV MCHC RDW Lymph % (Auto) [place] % (Auto) Lymph # (Auto) [place] # (Auto) Seg Neutrophils % Seg Neuts % (Manual) Lymphocytes % (Manual) Monocytes % (Manual) Seg Neutrophils # Seg Neutrophils # Man Lymphocytes # (Manual) Monocytes # (Manual) Haptoglobin PT APTT 72.5 H* D-Dimer Heparin Anti-Xa Level ABG pH ABG pO2 ABG HCO3 ABG O2 Saturation ABG Base Excess ABG Hemoglobin Oxyhemoglobin Sodium Potassium Chloride Carbon Dioxide BUN Creatinine Glucose POC Glucose 131 H 122 H Calcium Phosphorus Magnesium Iron TIBC Ferritin Total Bilirubin AST ALT Lactate Dehydrogenase Total Creatine Kinase Troponin T C-Reactive Protein Albumin Urine WBC (Auto) Urine Creatinine Urine Total Protein Complement C3 Coronavirus (PCR) Hepatitis C Antibody Crossmatch 05/20/21 05/20/21 05/20/21 05:14 05:14 06:12 WBC 19.7 H RBC 3.19 L Hgb 9.5 L Hct 29.9 L MCV MCHC RDW 17.3 H Lymph % (Auto) [place] % (Auto) Lymph # (Auto) [place] # (Auto) Seg Neutrophils % Seg Neuts % (Manual) Lymphocytes % (Manual) Monocytes % (Manual) Seg Neutrophils # Seg Neutrophils # Man Lymphocytes # (Manual) Monocytes # (Manual) Haptoglobin PT APTT D-Dimer Heparin Anti-Xa Level ABG pH ABG pO2 ABG HCO3 ABG O2 Saturation ABG Base Excess ABG Hemoglobin Oxyhemoglobin Sodium Potassium Chloride Carbon Dioxide BUN 31 H Creatinine 2.1 H Glucose 130 H POC Glucose 120 H Calcium Phosphorus Magnesium Iron TIBC Ferritin Total Bilirubin AST ALT Lactate Dehydrogenase Total Creatine Kinase Troponin T C-Reactive Protein Albumin Urine WBC (Auto) Urine Creatinine Urine Total Protein Complement C3 Coronavirus (PCR) Hepatitis C Antibody Crossmatch 05/20/21 05/20/21 05/20/21 11:10 18:12 23:55 WBC RBC Hgb Hct MCV MCHC RDW Lymph % (Auto) [place] % (Auto) Lymph # (Auto) [place] # (Auto) Seg Neutrophils % Seg Neuts % (Manual) Lymphocytes % (Manual) Monocytes % (Manual) Seg Neutrophils # Seg Neutrophils # Man Lymphocytes # (Manual) Monocytes # (Manual) Haptoglobin PT APTT D-Dimer Heparin Anti-Xa Level ABG pH ABG pO2 ABG HCO3 ABG O2 Saturation ABG Base Excess ABG Hemoglobin Oxyhemoglobin Sodium Potassium Chloride Carbon Dioxide BUN Creatinine Glucose POC Glucose 152 H 137 H 146 H Calcium Phosphorus Magnesium Iron TIBC Ferritin Total Bilirubin AST ALT Lactate Dehydrogenase Total Creatine Kinase Troponin T C-Reactive Protein Albumin Urine WBC (Auto) Urine Creatinine Urine Total Protein Complement C3 Coronavirus (PCR) Hepatitis C Antibody Crossmatch 05/21/21 05/21/21 05/21/21 03:12 03:12 05:53 WBC 26.2 H RBC 2.58 L Hgb 7.7 L Hct 24.2 L MCV MCHC RDW 17.8 H Lymph % (Auto) [place] % (Auto) Lymph # (Auto) [place] # (Auto) Seg Neutrophils % Seg Neuts % (Manual) Lymphocytes % (Manual) Monocytes % (Manual) Seg Neutrophils # Seg Neutrophils # Man Lymphocytes # (Manual) Monocytes # (Manual) Haptoglobin PT APTT D-Dimer Heparin Anti-Xa Level ABG pH ABG pO2 ABG HCO3 ABG O2 Saturation ABG Base Excess ABG Hemoglobin Oxyhemoglobin Sodium 133 L Potassium 5.7 H D Chloride Carbon Dioxide 21 L BUN 49 H Creatinine 2.6 H Glucose 160 H POC Glucose 118 H Calcium Phosphorus Magnesium Iron TIBC Ferritin Total Bilirubin AST ALT Lactate Dehydrogenase Total Creatine Kinase Troponin T C-Reactive Protein Albumin Urine WBC (Auto) Urine Creatinine Urine Total Protein Complement C3 Coronavirus (PCR) Hepatitis C Antibody Crossmatch 05/21/21 05/22/21 05/22/21 18:00 00:13 05:05 WBC RBC Hgb Hct MCV MCHC RDW Lymph % (Auto) [place] % (Auto) Lymph # (Auto) [place] # (Auto) Seg Neutrophils % Seg Neuts % (Manual) Lymphocytes % (Manual) Monocytes % (Manual) Seg Neutrophils # Seg Neutrophils # Man Lymphocytes # (Manual) Monocytes # (Manual) Haptoglobin PT APTT D-Dimer Heparin Anti-Xa Level ABG pH 7.500 H ABG pO2 56.6 L ABG HCO3 ABG O2 Saturation ABG Base Excess ABG Hemoglobin 6.7 L Oxyhemoglobin 94.8 L Sodium 136 L Potassium 5.2 H Chloride Carbon Dioxide BUN 59 H Creatinine 2.6 H Glucose 138 H POC Glucose 109 H Calcium Phosphorus Magnesium Iron TIBC Ferritin Total Bilirubin AST ALT Lactate Dehydrogenase Total Creatine Kinase Troponin T C-Reactive Protein Albumin Urine WBC (Auto) Urine Creatinine Urine Total Protein Complement C3 Coronavirus (PCR) Hepatitis C Antibody Crossmatch 05/22/21 05/22/21 05/22/21 06:07 11:49 16:33 WBC RBC Hgb Hct MCV MCHC RDW Lymph % (Auto) [place] % (Auto) Lymph # (Auto) [place] # (Auto) Seg Neutrophils % Seg Neuts % (Manual) Lymphocytes % (Manual) Monocytes % (Manual) Seg Neutrophils # Seg Neutrophils # Man Lymphocytes # (Manual) Monocytes # (Manual) Haptoglobin PT APTT D-Dimer Heparin Anti-Xa Level ABG pH ABG pO2 ABG HCO3 ABG O2 Saturation ABG Base Excess ABG Hemoglobin Oxyhemoglobin Sodium Potassium Chloride Carbon Dioxide BUN Creatinine Glucose POC Glucose 110 H 117 H 119 H Calcium Phosphorus Magnesium Iron TIBC Ferritin Total Bilirubin AST ALT Lactate Dehydrogenase Total Creatine Kinase Troponin T C-Reactive Protein Albumin Urine WBC (Auto) Urine Creatinine Urine Total Protein Complement C3 Coronavirus (PCR) Hepatitis C Antibody Crossmatch 05/23/21 05/23/21 05/23/21 04:48 04:48 07:12 WBC 21.1 H RBC 2.03 L Hgb 6.2 L Hct 19.4 L* MCV 96 H MCHC RDW 17.5 H Lymph % (Auto) [place] % (Auto) Lymph # (Auto) [place] # (Auto) Seg Neutrophils % Seg Neuts % (Manual) Lymphocytes % (Manual) Monocytes % (Manual) Seg Neutrophils # Seg Neutrophils # Man Lymphocytes # (Manual) Monocytes # (Manual) Haptoglobin PT APTT D-Dimer Heparin Anti-Xa Level ABG pH ABG pO2 ABG HCO3 ABG O2 Saturation ABG Base Excess ABG Hemoglobin Oxyhemoglobin Sodium Potassium Chloride Carbon Dioxide BUN 62 H Creatinine 2.8 H Glucose 110 H POC Glucose Calcium Phosphorus Magnesium Iron TIBC Ferritin Total Bilirubin AST ALT Lactate Dehydrogenase Total Creatine Kinase Troponin T C-Reactive Protein Albumin Urine WBC (Auto) Urine Creatinine Urine Total Protein Complement C3 Coronavirus (PCR) Hepatitis C Antibody Crossmatch See Detail 05/23/21 05/23/21 05/23/21 11:19 14:15 16:12 WBC RBC Hgb Hct MCV MCHC RDW Lymph % (Auto) [place] % (Auto) Lymph # (Auto) [place] # (Auto) Seg Neutrophils % Seg Neuts % (Manual) Lymphocytes % (Manual) Monocytes % (Manual) Seg Neutrophils # Seg Neutrophils # Man Lymphocytes # (Manual) Monocytes # (Manual) Haptoglobin PT APTT D-Dimer Heparin Anti-Xa Level ABG pH ABG pO2 294.7 H ABG HCO3 ABG O2 Saturation 99.5 H ABG Base Excess ABG Hemoglobin 6.5 L Oxyhemoglobin Sodium Potassium Chloride Carbon Dioxide BUN Creatinine Glucose POC Glucose 127 H 120 H Calcium Phosphorus Magnesium Iron TIBC Ferritin Total Bilirubin AST ALT Lactate Dehydrogenase Total Creatine Kinase Troponin T C-Reactive Protein Albumin Urine WBC (Auto) Urine Creatinine Urine Total Protein Complement C3 Coronavirus (PCR) Hepatitis C Antibody Crossmatch 05/23/21 05/23/21 05/23/21 16:30 16:30 18:54 WBC RBC Hgb Hct MCV MCHC RDW Lymph % (Auto) [place] % (Auto) Lymph # (Auto) [place] # (Auto) Seg Neutrophils % Seg Neuts % (Manual) Lymphocytes % (Manual) Monocytes % (Manual) Seg Neutrophils # Seg Neutrophils # Man Lymphocytes # (Manual) Monocytes # (Manual) Haptoglobin 254 H PT APTT D-Dimer Heparin Anti-Xa Level ABG pH ABG pO2 ABG HCO3 ABG O2 Saturation ABG Base Excess ABG Hemoglobin Oxyhemoglobin Sodium Potassium Chloride Carbon Dioxide BUN Creatinine Glucose POC Glucose Calcium Phosphorus Magnesium Iron TIBC Ferritin Total Bilirubin AST ALT Lactate Dehydrogenase Total Creatine Kinase Troponin T C-Reactive Protein Albumin Urine WBC (Auto) 12.0 H Urine Creatinine 100.1 H Urine Total Protein Complement C3 Coronavirus (PCR) Hepatitis C Antibody Crossmatch 05/23/21 05/23/21 05/24/21 18:54 Unknown 00:11 WBC 21.7 H RBC 2.40 L Hgb 7.1 L Hct 22.9 L MCV 96 H MCHC 31 L RDW 16.8 H Lymph % (Auto) [place] % (Auto) Lymph # (Auto) [place] # (Auto) Seg Neutrophils % Seg Neuts % (Manual) Lymphocytes % (Manual) Monocytes % (Manual) Seg Neutrophils # Seg Neutrophils # Man Lymphocytes # (Manual) Monocytes # (Manual) Haptoglobin PT APTT D-Dimer Heparin Anti-Xa Level ABG pH ABG pO2 ABG HCO3 ABG O2 Saturation ABG Base Excess ABG Hemoglobin Oxyhemoglobin Sodium Potassium Chloride Carbon Dioxide BUN Creatinine Glucose POC Glucose 110 H Calcium Phosphorus Magnesium Iron 10 L TIBC 151 L Ferritin Total Bilirubin AST ALT Lactate Dehydrogenase 311 H Total Creatine Kinase Troponin T C-Reactive Protein Albumin Urine WBC (Auto) Urine Creatinine Urine Total Protein Complement C3 Coronavirus (PCR) Hepatitis C Antibody Crossmatch 05/24/21 05/24/21 05/24/21 04:11 04:11 05:10 WBC 16.7 H RBC 2.19 L Hgb 6.4 L Hct 20.5 L MCV MCHC 31 L RDW 17.0 H Lymph % (Auto) [place] % (Auto) Lymph # (Auto) [place] # (Auto) Seg Neutrophils % Seg Neuts % (Manual) Lymphocytes % (Manual) Monocytes % (Manual) Seg Neutrophils # Seg Neutrophils # Man Lymphocytes # (Manual) Monocytes # (Manual) Haptoglobin PT APTT D-Dimer Heparin Anti-Xa Level ABG pH ABG pO2 ABG HCO3 ABG O2 Saturation ABG Base Excess ABG Hemoglobin Oxyhemoglobin Sodium Potassium Chloride Carbon Dioxide BUN 78 H Creatinine 2.8 H Glucose 119 H POC Glucose 108 H Calcium Phosphorus 5.30 H Magnesium 2.60 H Iron TIBC Ferritin Total Bilirubin AST 152 H ALT 125 H Lactate Dehydrogenase Total Creatine Kinase Troponin T C-Reactive Protein Albumin 2.5 L Urine WBC (Auto) Urine Creatinine Urine Total Protein Complement C3 Coronavirus (PCR) Hepatitis C Antibody Crossmatch 05/24/21 05/25/21 05/25/21 09:55 04:25 04:25 WBC 13.8 H RBC 2.78 L Hgb 8.3 L Hct 25.6 L MCV MCHC RDW 16.2 H Lymph % (Auto) [place] % (Auto) Lymph # (Auto) [place] # (Auto) Seg Neutrophils % Seg Neuts % (Manual) Lymphocytes % (Manual) Monocytes % (Manual) Seg Neutrophils # Seg Neutrophils # Man Lymphocytes # (Manual) Monocytes # (Manual) Haptoglobin PT APTT D-Dimer Heparin Anti-Xa Level ABG pH ABG pO2 141.9 H ABG HCO3 ABG O2 Saturation ABG Base Excess ABG Hemoglobin 6.5 L Oxyhemoglobin Sodium Potassium Chloride Carbon Dioxide BUN 76 H Creatinine 2.6 H Glucose 110 H POC Glucose Calcium 8.1 L Phosphorus Magnesium Iron TIBC Ferritin Total Bilirubin AST ALT Lactate Dehydrogenase Total Creatine Kinase Troponin T C-Reactive Protein Albumin Urine WBC (Auto) Urine Creatinine Urine Total Protein Complement C3 Coronavirus (PCR) Hepatitis C Antibody Crossmatch 05/25/21 05/25/21 05/25/21 05:19 09:40 17:11 WBC RBC Hgb Hct MCV MCHC RDW Lymph % (Auto) [place] % (Auto) Lymph # (Auto) [place] # (Auto) Seg Neutrophils % Seg Neuts % (Manual) Lymphocytes % (Manual) Monocytes % (Manual) Seg Neutrophils # Seg Neutrophils # Man Lymphocytes # (Manual) Monocytes # (Manual) Haptoglobin PT APTT D-Dimer Heparin Anti-Xa Level ABG pH ABG pO2 150.9 H ABG HCO3 ABG O2 Saturation ABG Base Excess ABG Hemoglobin 7.0 L Oxyhemoglobin Sodium Potassium Chloride Carbon Dioxide BUN Creatinine Glucose POC Glucose 123 H 108 H Calcium Phosphorus Magnesium Iron TIBC Ferritin Total Bilirubin AST ALT Lactate Dehydrogenase Total Creatine Kinase Troponin T C-Reactive Protein Albumin Urine WBC (Auto) Urine Creatinine Urine Total Protein Complement C3 Coronavirus (PCR) Hepatitis C Antibody Crossmatch 05/25/21 05/26/21 05/26/21 23:37 05:02 07:09 WBC RBC Hgb Hct MCV MCHC RDW Lymph % (Auto) [place] % (Auto) Lymph # (Auto) [place] # (Auto) Seg Neutrophils % Seg Neuts % (Manual) Lymphocytes % (Manual) Monocytes % (Manual) Seg Neutrophils # Seg Neutrophils # Man Lymphocytes # (Manual) Monocytes # (Manual) Haptoglobin PT APTT D-Dimer Heparin Anti-Xa Level ABG pH ABG pO2 ABG HCO3 ABG O2 Saturation ABG Base Excess ABG Hemoglobin Oxyhemoglobin Sodium Potassium Chloride Carbon Dioxide BUN 62 H Creatinine 2.1 H Glucose 112 H POC Glucose 117 H 112 H Calcium 8.2 L Phosphorus Magnesium Iron TIBC Ferritin Total Bilirubin AST ALT Lactate Dehydrogenase Total Creatine Kinase Troponin T C-Reactive Protein Albumin Urine WBC (Auto) Urine Creatinine Urine Total Protein Complement C3 Coronavirus (PCR) Hepatitis C Antibody Crossmatch 05/26/21 05/26/21 05/26/21 07:09 09:10 09:50 WBC 15.8 H RBC 3.21 L Hgb 9.2 L Hct 29.6 L MCV MCHC 31 L RDW 16.6 H Lymph % (Auto) [place] % (Auto) Lymph # (Auto) [place] # (Auto) Seg Neutrophils % Seg Neuts % (Manual) Lymphocytes % (Manual) Monocytes % (Manual) Seg Neutrophils # Seg Neutrophils # Man Lymphocytes # (Manual) Monocytes # (Manual) Haptoglobin PT APTT D-Dimer Heparin Anti-Xa Level ABG pH ABG pO2 135.5 H ABG HCO3 ABG O2 Saturation ABG Base Excess ABG Hemoglobin 9.6 L Oxyhemoglobin Sodium Potassium Chloride Carbon Dioxide BUN Creatinine Glucose POC Glucose Calcium Phosphorus Magnesium Iron TIBC Ferritin Total Bilirubin AST ALT Lactate Dehydrogenase Total Creatine Kinase Troponin T C-Reactive Protein Albumin Urine WBC (Auto) 38.0 H Urine Creatinine Urine Total Protein Complement C3 Coronavirus (PCR) Hepatitis C Antibody Crossmatch 05/26/21 05/26/21 05/27/21 11:20 18:24 00:24 WBC RBC Hgb Hct MCV MCHC RDW Lymph % (Auto) [place] % (Auto) Lymph # (Auto) [place] # (Auto) Seg Neutrophils % Seg Neuts % (Manual) Lymphocytes % (Manual) Monocytes % (Manual) Seg Neutrophils # Seg Neutrophils # Man Lymphocytes # (Manual) Monocytes # (Manual) Haptoglobin PT APTT D-Dimer Heparin Anti-Xa Level ABG pH ABG pO2 ABG HCO3 ABG O2 Saturation ABG Base Excess ABG Hemoglobin Oxyhemoglobin Sodium Potassium Chloride Carbon Dioxide BUN Creatinine Glucose POC Glucose 109 H 116 H 115 H Calcium Phosphorus Magnesium Iron TIBC Ferritin Total Bilirubin AST ALT Lactate Dehydrogenase Total Creatine Kinase Troponin T C-Reactive Protein Albumin Urine WBC (Auto) Urine Creatinine Urine Total Protein Complement C3 Coronavirus (PCR) Hepatitis C Antibody Crossmatch 05/27/21 05/27/21 05/27/21 05:12 07:47 07:47 WBC 15.5 H RBC 2.86 L Hgb 8.8 L Hct 26.1 L MCV MCHC RDW 16.1 H Lymph % (Auto) [place] % (Auto) Lymph # (Auto) [place] # (Auto) Seg Neutrophils % Seg Neuts % (Manual) Lymphocytes % (Manual) Monocytes % (Manual) Seg Neutrophils # Seg Neutrophils # Man Lymphocytes # (Manual) Monocytes # (Manual) Haptoglobin PT APTT D-Dimer Heparin Anti-Xa Level ABG pH ABG pO2 ABG HCO3 ABG O2 Saturation ABG Base Excess ABG Hemoglobin Oxyhemoglobin Sodium Potassium Chloride 107.3 H Carbon Dioxide BUN 56 H Creatinine 1.8 H Glucose 108 H POC Glucose 108 H Calcium 8.1 L Phosphorus Magnesium Iron TIBC Ferritin Total Bilirubin AST ALT Lactate Dehydrogenase Total Creatine Kinase Troponin T C-Reactive Protein Albumin Urine WBC (Auto) Urine Creatinine Urine Total Protein Complement C3 Coronavirus (PCR) Hepatitis C Antibody Crossmatch 05/27/21 05/27/21 05/28/21 09:20 18:01 00:09 WBC RBC Hgb Hct MCV MCHC RDW Lymph % (Auto) [place] % (Auto) Lymph # (Auto) [place] # (Auto) Seg Neutrophils % Seg Neuts % (Manual) Lymphocytes % (Manual) Monocytes % (Manual) Seg Neutrophils # Seg Neutrophils # Man Lymphocytes # (Manual) Monocytes # (Manual) Haptoglobin PT APTT D-Dimer Heparin Anti-Xa Level ABG pH ABG pO2 115.2 H ABG HCO3 ABG O2 Saturation ABG Base Excess ABG Hemoglobin 9.2 L Oxyhemoglobin Sodium Potassium Chloride Carbon Dioxide BUN Creatinine Glucose POC Glucose 109 H 114 H Calcium Phosphorus Magnesium Iron TIBC Ferritin Total Bilirubin AST ALT Lactate Dehydrogenase Total Creatine Kinase Troponin T C-Reactive Protein Albumin Urine WBC (Auto) Urine Creatinine Urine Total Protein Complement C3 Coronavirus (PCR) Hepatitis C Antibody Crossmatch 05/28/21 05/28/21 05/28/21 04:04 04:04 04:04 WBC 14.1 H RBC 2.87 L Hgb 8.6 L Hct 26.5 L MCV MCHC RDW 15.9 H Lymph % (Auto) [place] % (Auto) Lymph # (Auto) [place] # (Auto) Seg Neutrophils % Seg Neuts % (Manual) 93.0 H Lymphocytes % (Manual) 2.0 L Monocytes % (Manual) Seg Neutrophils # Seg Neutrophils # Man 13.1 H Lymphocytes # (Manual) 0.3 L Monocytes # (Manual) Haptoglobin PT APTT D-Dimer Heparin Anti-Xa Level ABG pH ABG pO2 ABG HCO3 ABG O2 Saturation ABG Base Excess ABG Hemoglobin Oxyhemoglobin Sodium Potassium Chloride Carbon Dioxide BUN 54 H Creatinine 1.7 H Glucose 116 H POC Glucose Calcium 7.7 L Phosphorus Magnesium Iron TIBC Ferritin Total Bilirubin AST ALT Lactate Dehydrogenase Total Creatine Kinase Troponin T C-Reactive Protein 13.20 H Albumin Urine WBC (Auto) Urine Creatinine Urine Total Protein Complement C3 Coronavirus (PCR) Hepatitis C Antibody Crossmatch 05/28/21 05/28/21 05/28/21 05:32 12:06 17:30 WBC RBC Hgb Hct MCV MCHC RDW Lymph % (Auto) [place] % (Auto) Lymph # (Auto) [place] # (Auto) Seg Neutrophils % Seg Neuts % (Manual) Lymphocytes % (Manual) Monocytes % (Manual) Seg Neutrophils # Seg Neutrophils # Man Lymphocytes # (Manual) Monocytes # (Manual) Haptoglobin PT APTT D-Dimer Heparin Anti-Xa Level ABG pH ABG pO2 ABG HCO3 ABG O2 Saturation ABG Base Excess ABG Hemoglobin Oxyhemoglobin Sodium Potassium Chloride Carbon Dioxide BUN Creatinine Glucose POC Glucose 119 H 112 H 114 H Calcium Phosphorus Magnesium Iron TIBC Ferritin Total Bilirubin AST ALT Lactate Dehydrogenase Total Creatine Kinase Troponin T C-Reactive Protein Albumin Urine WBC (Auto) Urine Creatinine Urine Total Protein Complement C3 Coronavirus (PCR) Hepatitis C Antibody Crossmatch 05/28/21 05/29/21 05/29/21 23:46 05:16 11:16 WBC 12.2 H RBC 2.94 L Hgb 8.7 L Hct 27.2 L MCV MCHC RDW 15.8 H Lymph % (Auto) [place] % (Auto) Lymph # (Auto) [place] # (Auto) Seg Neutrophils % Seg Neuts % (Manual) Lymphocytes % (Manual) Monocytes % (Manual) Seg Neutrophils # Seg Neutrophils # Man Lymphocytes # (Manual) Monocytes # (Manual) Haptoglobin PT APTT D-Dimer Heparin Anti-Xa Level ABG pH ABG pO2 ABG HCO3 ABG O2 Saturation ABG Base Excess ABG Hemoglobin Oxyhemoglobin Sodium Potassium Chloride Carbon Dioxide BUN Creatinine Glucose POC Glucose 108 H 113 H Calcium Phosphorus Magnesium Iron TIBC Ferritin Total Bilirubin AST ALT Lactate Dehydrogenase Total Creatine Kinase Troponin T C-Reactive Protein Albumin Urine WBC (Auto) Urine Creatinine Urine Total Protein Complement C3 Coronavirus (PCR) Hepatitis C Antibody Crossmatch 05/29/21 11:16 WBC RBC Hgb Hct MCV MCHC RDW Lymph % (Auto) [place] % (Auto) Lymph # (Auto) [place] # (Auto) Seg Neutrophils % Seg Neuts % (Manual) Lymphocytes % (Manual) Monocytes % (Manual) Seg Neutrophils # Seg Neutrophils # Man Lymphocytes # (Manual) Monocytes # (Manual) Haptoglobin PT APTT D-Dimer Heparin Anti-Xa Level ABG pH ABG pO2 ABG HCO3 ABG O2 Saturation ABG Base Excess ABG Hemoglobin Oxyhemoglobin Sodium Potassium Chloride Carbon Dioxide BUN 50 H Creatinine 1.5 H Glucose 117 H POC Glucose Calcium 8.0 L Phosphorus Magnesium Iron TIBC Ferritin Total Bilirubin AST ALT Lactate Dehydrogenase Total Creatine Kinase Troponin T C-Reactive Protein Albumin Urine WBC (Auto) Urine Creatinine Urine Total Protein Complement C3 Coronavirus (PCR) Hepatitis C Antibody Crossmatch Allied health notes reviewed: nursing
--- NOTE | 2021-05-29 13:30 | Progress Note ---
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 Serum creatinine down to 1.5 today. He is also currently nonoliguric. His serum creatinine was 1.0 in August 2020 * Hypernatremia has been corrected . * His urine shows 2+ dipstick protein and 3 RBCs per high-power field. Fractional excretion of sodium is 0.3%. * Hyperkalemia has been corrected. Continue to hold diuretics. * Renal ultrasound reviewed - will need follow up CT once stable * Continue antiHTN medications * Cardiology, ICU input noted * Dose medications for renal function * Avoid potential nephrotoxins * Strict I/O * No indication for renal replacement therapy at this time. IV fluid has been discontinued Subjective Date of service: 05/29/21 Principal diagnosis: AHRF; COVID-19 infection; NSTEMI; YE; HFrEF (35-40%); Polysubstance abuse Interval history: Patient remains in the ICU. Currently on 25% FiO2. Oxygen saturation is 98%. Objective - Vital Signs Vital signs: Vital Signs - 12hr 05/29/21 05/29/21 05/29/21 02:00 03:00 03:25 Temperature 101 F H Pulse Rate 86 90 Pulse Rate [ From Monitor] Respiratory 24 27 H Rate Blood Pressure 147/85 148/93 O2 Sat by Pulse 95 96 Oximetry 05/29/21 05/29/21 05/29/21 04:00 04:57 05:00 Temperature Pulse Rate 90 88 88 Pulse Rate [ 82 From Monitor] Respiratory 23 24 Rate Blood Pressure 152/96 145/91 147/89 O2 Sat by Pulse 96 96 96 Oximetry 05/29/21 05/29/21 05/29/21 06:00 07:00 07:05 Temperature Pulse Rate 91 H 88 89 Pulse Rate [ From Monitor] Respiratory 29 H 25 H Rate Blood Pressure 151/95 149/92 149/92 O2 Sat by Pulse 96 96 Oximetry 05/29/21 05/29/21 05/29/21 07:54 08:00 08:05 Temperature 102 F H Pulse Rate 76 87 Pulse Rate [ From Monitor] Respiratory 21 Rate Blood Pressure 140/87 140/87 O2 Sat by Pulse 95 96 Oximetry 05/29/21 05/29/21 05/29/21 08:42 09:00 10:00 Temperature Pulse Rate 85 86 70 Pulse Rate [ From Monitor] Respiratory 30 H 22 Rate Blood Pressure 139/86 142/90 102/67 O2 Sat by Pulse 97 98 Oximetry - General Appearance General appearance: well-developed, well-nourished, appears stated age, intubated EENT: PERRL, mucous membranes moist Neck: no JVD, no thyromegaly, no carotid bruit, supple Respiratory: Present: Clear to Ascultation Cardiology: regular, normal heart rate Gastrointestinal: normal, normoactive bowel sounds Integumentary: no rash, other (No edema) - Lab 05/29/21 11:16 05/29/21 11:16 Most recent lab results ABG pH 7.443 pH Units (7.350-7.450) 05/27/21 09:20 ABG pCO2 38.8 mm Hg 05/27/21 09:20 ABG pO2 115.2 mm Hg (80.0-90.0) H 05/27/21 09:20 ABG HCO3 25.9 mmol/L (20.0-26.0) 05/27/21 09:20 ABG O2 Saturation 98.3 % (95.0-99.0) 05/27/21 09:20 Calcium 8.0 mg/dL (8.4-10.2) L 05/29/21 11:16 Phosphorus 3.70 mg/dL (2.5-4.5) D 05/25/21 04:25 Magnesium 2.30 mg/dL (1.7-2.3) 05/25/21 04:25 Urine Creatinine 100.1 mg/dL (0.1-20.0) H 05/23/21 16:30 Urine Sodium 25 mmol/L 05/23/21 16:30 Urine Total Protein 42 mg/dL (5-11.8) H 05/10/21 11:03 Medications & Allergies - Medications Allergies/Adverse Reactions: Allergies No Known Allergies Allergy (Verified 05/08/21 07:47) Home Medications: Home Medications Medication Instructions Recorded Confirmed Last Taken Type Cefpodoxime Proxetil 200 mg PO Q12H #10 tablet 05/29/21 02/03/22 Unknown Rx Famotidine [Pepcid] 20 mg PO BID #30 tablet 04/13/21 05/19/21 Unknown Rx Losartan [Cozaar] 100 mg PO QDAY #60 tablet 04/13/21 05/19/21 Unknown Rx Metoprolol Xl [Metoprolol 25 mg PO QDAY #30 tablet 04/13/21 05/19/21 Unknown Rx SUCCINATE ER TAB] NIFEdipine XL [Procardia Xl] 60 mg PO Q12HR #60 tablet 04/13/21 05/19/21 Unknown Rx hydrALAZINE [Apresoline TAB] 50 mg PO Q8HR #180 tablet 04/13/21 05/19/21 Unknown Rx Active Medications: Generic Name Dose Route Start Last Admin Trade Name Freq PRN Reason Stop Dose Admin Acetaminophen 650 mg 05/04/21 12:34 05/29/21 07:05 Acetaminophen 325 Mg Tab PO 650 mg Q4H PRN Administration Pain MILD(1-3)/Fever >100.5/MARIA Acetaminophen 650 mg 05/07/21 16:00 05/11/21 16:25 Acetaminophen 650 Mg Rect Supp MI 650 mg Q4H PRN Administration Pain, Mild (1-3) Atorvastatin Calcium 40 mg 05/09/21 22:00 05/28/21 21:09 Atorvastatin 40 Mg Tab FEEDTUBE 40 mg QHS RISHI Administration Chlordiazepoxide HCl 25 mg 05/27/21 20:00 05/29/21 08:42 Chlordiazepoxide 25 Mg Cap PO 05/30/21 19:59 25 mg TID RISHI Administration Dextrose 0 ml 05/09/21 10:49 05/14/21 06:55 Dextrose 10% *Hypoglycemia IV 250 ml PRN PRN Administration Hypoglycemia Fentanyl 50 mcg 05/23/21 15:00 Fentanyl 100 Mcg/2 Ml Inj IV Q10MIN PRN ANALGESIA Haloperidol Lactate 5 mg 05/09/21 18:32 05/18/21 19:52 Haloperidol Lactate 5 Mg/1 Ml Inj IV 5 mg Q6H PRN Administration Agitation Heparin Sodium (Porcine) 5,000 unit 05/27/21 22:00 05/29/21 09:04 Heparin 5,000 Unit/1 Ml Vial SUB-Q 5,000 unit Q12HR RISHI Administration Hydralazine HCl 50 mg 05/04/21 14:00 05/29/21 07:05 Hydralazine 25 Mg Tab PO 50 mg Q8HR RISHI Administration Hydrophilic Ointment 1 applic 05/05/21 15:21 Lip Therapy Vaseline TP Q2HR PRN Dry Lips Fentanyl Citrate 2,000 mcg in 100 mls @ 4.082 mls/hr 05/23/21 15:00 Fentanyl Drip Premix IV TITR RISHI Protocol 1 MCG/KG/HR Ertapenem 1 gm/ Sodium 50 mls @ 100 mls/hr 05/26/21 14:00 05/29/21 09:04 Chloride IV 100 mls/hr QDAY RISHI Administration Insulin Human Lispro 0 unit 05/10/21 09:40 05/12/21 16:49 Insulin Lispro 100 Unit/Ml SUB-Q 2 unit Q6HR PRN Administration Hyperglycemia Protocol Labetalol HCl 10 mg 05/15/21 10:24 05/25/21 08:15 Labetalol 20 Mg/4 Ml Inj IV 10 mg Q4H PRN Administration sbp> 160. Lansoprazole 30 mg 05/26/21 10:00 05/29/21 09:04 Lansoprazole 30 Mg Solutab FEEDTUBE 30 mg BID RISHI Administration Metoprolol Tartrate 50 mg 05/26/21 08:00 05/29/21 08:42 Metoprolol Tartrate 25 Mg Tab FEEDTUBE 50 mg TID RISHI Administration Multi-Ingred Cream/Lotion/Oil/Oint 1 applic 05/05/21 15:21 Mineral Oil/Petrolatum, White Ophth Oint 3.5 Gm OU Q4HR PRN Dry Eye(s) Ondansetron HCl 4 mg 05/04/21 12:34 05/04/21 21:51 Ondansetron 4 Mg/2 Ml Inj IV 4 mg Q8H PRN Administration Nausea And Vomiting Polyethylene Glycol 17 gm 05/26/21 22:00 05/27/21 22:10 Polyethylene Glycol 3350 17 Gm Powder PO 17 gm QHS RISHI Administration Quetiapine Fumarate 100 mg 05/25/21 22:00 05/29/21 09:04 Quetiapine 100 Mg Tab PO 100 mg BID RISHI Administration Senna/Docusate Sodium 1 tab 05/05/21 22:00 05/29/21 09:05 Sennosides/Docusate Sodium 8.6/50 Mg Tab FEEDTUBE Not Given BID RISHI Sodium Chloride 10 ml 05/04/21 22:00 05/29/21 09:05 Sodium Chloride 0.9% 10 Ml Flush Syringe IV 10 ml BID RISHI Administration Sodium Chloride 10 ml 05/04/21 12:34 05/06/21 13:59 Sodium Chloride 0.9% 10 Ml Flush Syringe IV 10 ml PRN PRN Administration LINE FLUSH Sodium Chloride 10 ml 05/09/21 09:46 Sodium Chloride 0.9% 50 Ml Ivpb IV PRN PRN FLUSH
--- NOTE | 2021-05-29 15:21 | Progress Note ---
<DANIELVALENTIN MatteoChalino - Last Filed: 05/29/21 15:18> Assessment and Plan Assessment and plan: This is a 56-year-old male with nicotine and cocaine abuse, atrial fibrillation, hypertension and chronic medication noncompliance complicated by homelessness admitted with acute hypoxic respiratory failure, COVID-19 pneumonia, green saminitis, NSTEMI, hypertensive emergency and acute kidney injury A/P Neuro: Metabolic encephalopathy, polysubstance abuse (but amphetamine and tobacco) -On [facility] protocol -Librium and Seroquel taper started 05/25 -Maintain sleep-wake cycle -Monitor QTc -Avoid delirium -UDS positive for amphetamines -We will need cessation counseling when appropriate -fent patch x1- trial dose Cardio: Heart failure reduced EF, cardiomyopathy, NSTEMI, paroxysmal atrial fibrillation, S/p hypertensive emergency, h/o HTN -Continue beta-sylvia, aspirin, statin, hydral, titrate as needed -Cardiology consulted, appreciate recommendations -Echo 05/04/2021-EF 35 to 40%. Moderate concentric LVH. Moderate global hypokinesis of left ventricle. Mild mitral regurgitation. Mild pulmonary hypertension. Echocardiogram reviewed (08/27/2020): LVEF is 50 to 55%. Mild to moderate concentric LVF. Severe diastolic dysfunction is present (restrictive filling). Right ventricle is mildly hypokinetic. RVSP is 48 mmHg. No valvular abnormalities. -S/p Cardizem drip for atrial fibrillation -Blood pressure monitoring per protocol Respiratory: Acute hypoxic respiratory failure -[facility] consulted, appreciate recommendations -Intubated on 05/05 in the ED and extubated 05/13, Re-intubated on 05/16 and Extubated on 05/18 -Reintubated 05/23 with 8.0 OETT at 22 cm at the lips -s/p bipap -A.m. vent settings: Assist control tidal volume 450, rate 16, PEEP 8, FiO2 25% -See RT note for titration -CPAP as tolerated -VAP bundle -Continues SPO2 monitoring GI: GIB (ruled out), Transaminitis, h/o hepatitis C -GI consulted, appreciate recommendations -IV Protonix BID -s/p Protonix gtt -24-hour +535 ml -BM 05/29 -BR: Senokot -Renal ultrasound showed incidental finding of cholelithiasis -Continue supportive management -Trend LFTs : Acute kidney injury likely secondary to vasomotor nephropathy -Nephrology consulted, appreciate recommendations -s/p IVF -Avoid nephrotoxic medications -Renally dose medication -Strict intake and output -FeNa indicates prerenal -Renal ultrasound completed: 1.7 hyper echoic mass within the left upper pole -Monitor follow-up with CT once stable ID: Severe COVID-19 pneumonia, Enterobacter aerogenes PNA, s/p Enterococcus faecalis UTI -Infectious disease consulted, appreciate recommendations -COVID-19 PCR positive -s/p droplet/precautions for 21 days -Not a candidate for remdesivir given acute kidney injury -s/p Dexamethasone for 10 days -Anticoagulation per hospital protocol -Trend COVID-19 from 2 markers (ferritin, D-dimer, CRP, LDH) -05/09 urine culture with Enterococcus faecalis -05/16 tracheal aspirate with Enterobacter aerogenes -per ID Due to persistent fevers switched cefepime to IV ertapenem renally adjusted 05/24 -GC negative -f/u culture data -re-cultured 05/26 Heme: Anemia, Acute DVT (resolved) , leukocytosis -Bilateral lower extremity Doppler ultrasound shows acute DVT -heparin gtt converted to DOAC but now d/c -vascular surgery consulted for possible IVC filter placement, appreciate recommendations -repeat doppler shows no DVT -subq heparin for prophylaxis -Pulmonary perfusion study showed low probability of pulmonary embolism -S/p 3 unit PRBC -Trend CBC -Transfuse for hemoglobin less than 7 Endo: NAD -Accu-Cheks every 6 -SSI -Avoid hypoglycemia The high probability of a clinically significant, sudden or life threatening deterioration of the [cardio/resp] system(s) required my full and direct attention, intervention and personal management. The aggregate critical care time was [60] minutes. This time is in addition to time spent performing reported procedures but includes the following: [x] Data Review and interpretation [x] Patient assessment and monitoring of vital signs [x] Documentation [x] Medication orders and management Disposition Plan: icu Total Time Spent with Patient (Minutes): 60 History Interval history: This is a 56-year-old male with a nicotine abuse, A. fib, hypertension, and c hronic medication noncompliance and homelessness who presented to emergency department on 05/04 with complaints of dyspnea on exertion for the past month worsening over the past 3 days, intermittent left-sided chest tightness with activity, and persistent cough without fever. Work-up in the emergency department revealed anemia, hyponatremia, elevated BUN/creatinine and transaminitis. Patient was admitted to the hospitalist service with acute kidney injury and accelerated hypertension. Hospital course to date 05/04/2021. Cardiology was considering patient for Heel Emer[place] Buffer. However, patient with elevated creatinine therefore will hold off on cath evaluation. Nephrology consultation for acute kidney injury. Etiology likely secondary to vasomotor nephropathy/dehydration. We will start IV fluid hydration. Check renal ultrasound to rule out obstructive uropathy. We will resume home medications for the accelerated hypertension 05/05/2021. Echocardiogram reveals EF 35-40% with moderate concentric left ventricular hypertrophy. Moderate global hypokinesis of left ventricle. Mild mitral regurgitation. Mild pulmonary hypertension. Troponins are believed to be elevated in the setting of acute kidney injury. No beta-blockers due to cocaine use continue heparin and nitro drip. Continue CIWA protocol. Await urine studies 05/06/2021. Patient decompensated yesterday with worsening respiratory failure and difficulty to protect airway. Patient was breathing sonorously, and hypoxic. Patient was intubated and currently is on mechanical ventilation. Patient with AC mode ventilation rate of 20, tidal volume 450, FiO2 40% and PEEP of 6. COVID PCR testing on 05/05/2021 was found to be positive. Echocardiogram completed on this admission shows worsening EF from August 2020. Echocardiogram now reveals moderate concentric left ventricular hypertrophy with moderate global hypokinesis and EF of 35-40%. Mild pulmonary hypertension. 05/08: Continue current management, renal stable, LFTs stable and if improved will start on statin therapy. 05/09: Patient is febrile, will panculture, PSV today. CRP pending. Mucoid discharge noted from meatus which was sent for culture. Hypernatremia persists, free water flushes increased 05/10: PSV trial per [facility], T-max 102.3, given mildly elevated procalcitonin started on ceftriaxone 2 g every 24 for 2 days per ID. Overnight patient had atrial fibrillation which was treated with Cardizem drip and converted to sinus rhythm. Metoprolol p.o. increased to 3 times daily. 05/11: Patient still running fevers and if still febrile tomorrow will escalate to cefepime per ID as he is currently on ceftriaxone, [facility] attempted PSV but patient became agitated and was switched back to pressure control. Lower extremity ultrasound shows acute DVT and started on heparin drip. Started on scheduled Librium. Patient remains with hypernatremia and elevated creatinine and on IV fluids. Free water flushes adjusted. Started on vancomycin today 05/12: Patient placed on pressure support trial without fentanyl, hypernatremia improving, hyperkalemia noted. Slight improvement to renal function. 05/13: Patient was extubated today, ID change antibiotics to Zosyn for Enterococcus, was started tapering Librium in the morning, renal function slightly improved. Possible transfer to floor tomorrow. ST evaluation for swallow ordered. 05/14: Patient became hypoglycemic overnight and started on dextrose IV fluids. Accu-Chek fingersticks have been low but on a.m. BMP patient blood glucose is 100. Other BMP pending. Feeding tube replaced due to need for enteral access and patient being severely confused. Renal functions remains the same. Upon confirmation will restart tube feedings, p.o. medications and free water fl ushes. 05/15: Remains confused/somnolent on my encounter. Librium taper in 24hrs per PCCM recs. Remains hypertensive. Added amlodipine 10 mg NG and labetalol prn. ST eval today but doubt he will participate. Potassium replaced. Renal function improving overall, however, hypernatremic. Inc TF FWF to 250 cc q4hr. 05/16: Respiratory distress this AM, hypoxic in 60's not protecting airway. Required intubation, patient now ICU patient. Reduce fluid to FWF only, IVF d/c off jun. CXR ordered demonstrates pulmonary edema. Lasix 40 mg IV bid ordered. Troponin elevated, continue heparin gtt. Would recommend decreasing sedating medications at this point, agree with librium taper. 05/17: Patient remains on the vent and sedated, RASS -3. Plan for possible sedation vacation today. D/w [facility] plan to wean for possible extubation on the vent. 22: Tolerated 4hrs of sedation vacation yesterday, on low dose fentanyl this am. Patient is tolerating PST this am. Plan to wean off sedation and wean vent setting for possible extubation today. 05/19: s/p extubation now stable on 3L NC. Lethargic this am, will decreased Seroquel. Speech consult for swallow eval, continue enteral nutrition via NGT for now. Hypertensive throughout the night, Norvac added. Remains on heparin gtt for DVT, might need to transition to PO AC, will d/w CCM. Patient is stable for transfer to [facility] 05/20: Continue sepsis work up considering fever, aspiration precautions. Discussed with nursing staff will hold am seroquel. Continue tube feed. RENAL Function remains relatively stable, possible has peaked. 05/21: Patient seen and examined, resting but still with mild increase wob, CXR concerning with right lobar infiltrate, continue antibiotics, will give kayxalate in addition due to hyperkalemia, Will discuss with ID due to rising luekocytosis possible worsening sepsis. 05/22: Patient remains on BIPAP, still sedated appearing, cxr concerning for possible aspiration, unfortunately still worsening renal status. Will continue abx and continue collaboration with pulmonary team to ensure no over sedation. Continue abx, will add kayaxlate 05/23: Patient noted to have severe anemia today, will initiate GI work up and also Hemolysis work up. Will discuss with Vascular about possible IVC filter placement. Continue BIPAP, goal is to see if we can avert re-intubation. Transfuse 1 UNIT PRBC, Will discuss with Pulmonary about holding Eliquis for now. Renal failure still ongoing. 05/24: Patient had a positive occult and was anemic again today and received PRBC. GI was consulted. Repeat Dopplers are negative for DVT vascular recommends a CT/SQ heparin if tolerated and nephrology would like to increase IV fluids per FeNa results. Decrease metoprolol, seroquel and librium. surgery consult for trach/peg 05/25: RT decreased FiO2. GI signed off, Cr slightly improved, Anemia improved. Tmax 101.4 noted, abx per ID. 05/26: Patient had a temperature spike and was recultured, no plan today changes made as patient continues to breathe over the vent, one time dose of fent patch, repeat dopllar in 1 week per ccm, miralax q hs 05/27: Added vancomycin per ID, started CPAP trials, prophylactic heparin, IV f luids stopped per ID. 05/28: No acute events reported overnight, T-max 100.6, slight improvement to BUN/creatinine. awaiting trach & PEG 05/29: Creatinine continues trending down, remains on minimal vent settings. CPAP as tolerated. Hospitalist Physical - Physical exam Narrative exam: - EENT Eyes: Present: PERRL, EOM intact ENT: clear oral mucosa - Neck Neck: Present: normal ROM - Respiratory Respiratory effort: normal Respiratory: bilateral: diminished - Cardiovascular Rhythm: regular Heart Sounds: Present: S1 & S2 - Extremities Extremities: no ischemia, pulses intact, pulses symmetrical, normal temperature, normal color Peripheral Pulses: within normal limits - Abdominal General gastrointestinal: soft, non-tender, non-distended, normal bowel sounds - Integumentary Integumentary: Present: warm - Psychiatric Psychiatric: other (sedated) - Neurologic Neurologic: other (Intact cough/gag) - Allied Health Allied health notes reviewed: nursing, RT, social work - Constitutional Vitals: Temp Pulse Resp BP Pulse Ox 102 F H 72 22 121/83 98 05/29/21 07:54 05/29/21 14:01 05/29/21 14:01 05/29/21 14:01 05/29/21 14:01 General appearance: Present: no acute distress HEART Score - HEART Score EKG: Non-specific Age: 45-65 Risk factors: 1-2 risk factors Troponin: Troponin T 0.400 ng/mL (0.00-0.029) H* D 05/16/21 18:40 Troponin: 1-3x normal limit - Critical Actions Critical Actions: 4-6 pts:12-16.6% risk of adverse cardiac event. Should be admitted Results - Labs CBC & Chem 7: 05/29/21 11:16 05/29/21 11:16 Labs: Laboratory Last Values WBC 12.2 K/mm3 (4.5-11.0) H 05/29/21 11:16 RBC 2.94 M/mm3 (3.65-5.03) L 05/29/21 11:16 Hgb 8.7 gm/dl (11.8-15.2) L 05/29/21 11:16 Hct 27.2 % (35.5-45.6) L 05/29/21 11:16 MCV 92 fl (84-94) 05/29/21 11:16 MCH 30 pg (28-32) 05/29/21 11:16 MCHC 32 % (32-34) 05/29/21 11:16 RDW 15.8 % (13.2-15.2) H 05/29/21 11:16 Plt Count 388 K/mm3 (140-440) 05/29/21 11:16 Lymph % (Auto) [employer] Gl[employer]aper 05/16/21 10:21 [place] % (Auto) [employer] Gl[employer] Shaper 05/16/21 10:21 Eos % (Auto) [employer]aper 05/16/21 10:21 Baso % (Auto) [employer]aper 05/16/21 10:21 Lymph # (Auto) [employer] Shaper 05/16/21 10:21 [place] # (Auto) [employer] Glove Shaper 05/16/21 10:21 Eos # (Auto) [employer] Glove Shaper 05/16/21 10:21 Baso # (Auto) [employer] Shaper 05/16/21 10:21 Add Manual Diff Complete 05/28/21 04:04 Total Counted 100 05/28/21 04:04 Seg Neutrophils % [employer]aper 05/16/21 10:21 Seg Neuts % (Manual) 93.0 % (40.0-70.0) H 05/28/21 04:04 Band Neutrophils % 1.0 % 05/28/21 04:04 Lymphocytes % (Manual) 2.0 % (13.4-35.0) L 05/28/21 04:04 Reactive Lymphs % (Man) 0 % 05/28/21 04:04 Monocytes % (Manual) 4.0 % (0.0-7.3) 05/28/21 04:04 Eosinophils % (Manual) 0 % (0.0-4.3) 05/28/21 04:04 Basophils % (Manual) 0 % (0.0-1.8) 05/28/21 04:04 Metamyelocytes % 0 % 05/28/21 04:04 Myelocytes % 0 % 05/28/21 04:04 Promyelocytes % 0 % 05/28/21 04:04 Blast Cells % 0 % 05/28/21 04:04 Nucleated RBC % Not Reportable 05/28/21 04:04 Seg Neutrophils # [employer] Glove Shaper 05/16/21 10:21 Seg Neutrophils # Man 13.1 K/mm3 (1.8-7.7) H 05/28/21 04:04 Band Neutrophils # 0.1 K/mm3 05/28/21 04:04 Lymphocytes # (Manual) 0.3 K/mm3 (1.2-5.4) L 05/28/21 04:04 Abs React Lymphs (Man) 0.0 K/mm3 05/28/21 04:04 Monocytes # (Manual) 0.6 K/mm3 (0.0-0.8) 05/28/21 04:04 Eosinophils # (Manual) 0.0 K/mm3 (0.0-0.4) 05/28/21 04:04 Basophils # (Manual) 0.0 K/mm3 (0.0-0.1) 05/28/21 04:04 Metamyelocytes # 0.0 K/mm3 05/28/21 04:04 Myelocytes # 0.0 K/mm3 05/28/21 04:04 Promyelocytes # 0.0 K/mm3 05/28/21 04:04 Blast Cells # 0.0 K/mm3 05/28/21 04:04 WBC Morphology Not Reportable 05/28/21 04:04 Hypersegmented Neuts Not Reportable 05/28/21 04:04 Hyposegmented Neuts Not Reportable 05/28/21 04:04 Hypogranular Neuts Not Reportable 05/28/21 04:04 Smudge Cells Not Reportable 05/28/21 04:04 Toxic Granulation Not Reportable 05/28/21 04:04 Toxic Vacuolation Not Reportable 05/28/21 04:04 Dohle Bodies Not Reportable 05/28/21 04:04 Pelger-Huet Anomaly Not Reportable 05/28/21 04:04 Jesse Rods Not Reportable 05/28/21 04:04 Platelet Estimate Consistent w auto 05/28/21 04:04 Clumped Platelets Not Reportable 05/28/21 04:04 Plt Clumps, EDTA Not Reportable 05/28/21 04:04 Large Platelets Not Reportable 05/28/21 04:04 Giant Platelets Not Reportable 05/28/21 04:04 Platelet Satelliting Not Reportable 05/28/21 04:04 Plt Morphology Comment Not Reportable 05/28/21 04:04 RBC Morphology Not Reportable 05/28/21 04:04 Dimorphic RBCs Not Reportable 05/28/21 04:04 Polychromasia Not Reportable 05/28/21 04:04 Hypochromasia Not Reportable 05/28/21 04:04 Poikilocytosis Not Reportable 05/28/21 04:04 Anisocytosis 1+ 05/28/21 04:04 Microcytosis Not Reportable 05/28/21 04:04 Macrocytosis Not Reportable 05/28/21 04:04 Spherocytes Not Reportable 05/28/21 04:04 Pappenheimer Bodies Not Reportable 05/28/21 04:04 Sickle Cells Not Reportable 05/28/21 04:04 Target Cells Not Reportable 05/28/21 04:04 Tear Drop Cells Not Reportable 05/28/21 04:04 Ovalocytes Not Reportable 05/28/21 04:04 Helmet Cells Not Reportable 05/28/21 04:04 Murphy-[place] Bodies Not Reportable 05/28/21 04:04 Parker Rings Not Reportable 05/28/21 04:04 [place] Cells Not Reportable 05/28/21 04:04 Bite Cells Not Reportable 05/28/21 04:04 Crenated Cell Not Reportable 05/28/21 04:04 Elliptocytes Not Reportable 05/28/21 04:04 Acanthocytes (Spur) Not Reportable 05/28/21 04:04 Rouleaux Not Reportable 05/28/21 04:04 Hemoglobin C Crystals Not Reportable 05/28/21 04:04 Schistocytes Not Reportable 05/28/21 04:04 Malaria parasites Not Reportable 05/28/21 04:04 Tomi Bodies Not Reportable 05/28/21 04:04 Haptoglobin 254 mg/dL (43-212) H 05/23/21 18:54 Hem Pathologist Commnt No 05/28/21 04:04 PT 14.9 Sec. (12.2-14.9) 05/25/21 04:25 INR 1.05 (0.87-1.13) 05/25/21 04:25 APTT 72.5 Sec. (24.2-36.6) H* 05/19/21 19:36 D-Dimer 2730.61 ng/mlDDU (0-234) H 05/12/21 07:19 Heparin Anti-Xa Level 0.47 U.I./ml (0.3-0.7) 05/19/21 05:23 ABG pH 7.443 pH Units (7.350-7.450) 05/27/21 09:20 ABG pCO2 38.8 mm Hg 05/27/21 09:20 ABG pO2 115.2 mm Hg (80.0-90.0) H 05/27/21 09:20 ABG HCO3 25.9 mmol/L (20.0-26.0) 05/27/21 09:20 ABG O2 Saturation 98.3 % (95.0-99.0) 05/27/21 09:20 ABG O2 Content 12.5 (0.0-44) 05/27/21 09:20 ABG Base Excess 1.7 mmol/L (-2.0-3.0) 05/27/21 09:20 ABG Hemoglobin 9.2 gm/dl (14.0-18.0) L 05/27/21 09:20 ABG Carboxyhemoglobin 2.2 % (0.0-5.0) 05/27/21 09:20 ABG Methemoglobin 0.7 % (0.0-1.5) 05/27/21 09:20 Oxyhemoglobin 95.4 % (95.0-99.0) 05/27/21 09:20 FiO2 30 % 05/27/21 09:20 Sodium 141 mmol/L (137-145) 05/29/21 11:16 Potassium 4.2 mmol/L (3.6-5.0) 05/29/21 11:16 Chloride 106.5 mmol/L (98-107) 05/29/21 11:16 Carbon Dioxide 24 mmol/L (22-30) 05/29/21 11:16 Anion Gap 15 mmol/L 05/29/21 11:16 BUN 50 mg/dL (9-20) H 05/29/21 11:16 Creatinine 1.5 mg/dL (0.8-1.3) H 05/29/21 11:16 Estimated GFR 48 ml/min 05/29/21 11:16 BUN/Creatinine Ratio 33 % 05/29/21 11:16 Glucose 117 mg/dL (75-100) H 05/29/21 11:16 POC Glucose 100 mg/dL (70-105) 05/29/21 12:11 Lactic Acid 0.90 mmol/L (0.7-2.0) 05/20/21 09:17 Calcium 8.0 mg/dL (8.4-10.2) L 05/29/21 11:16 Phosphorus 3.70 mg/dL (2.5-4.5) D 05/25/21 04:25 Magnesium 2.30 mg/dL (1.7-2.3) 05/25/21 04:25 Iron 10 ug/dL (49-181) L 05/23/21 Unknown TIBC 151 mcg/dL (250-450) L 05/23/21 Unknown Ferritin 640.2 ng/mL (30.0-300.0) H 05/12/21 07:19 Total Bilirubin 0.50 mg/dL (0.1-1.2) 05/24/21 04:11 AST 152 units/L (5-40) H 05/24/21 04:11 ALT 125 units/L (7-56) H 05/24/21 04:11 Alkaline Phosphatase 72 units/L (35-129) 05/24/21 04:11 Lactate Dehydrogenase 311 units/L (91-180) H 05/23/21 Unknown Total Creatine Kinase 406 units/L (55-170) H 05/04/21 08:42 Troponin T 0.400 ng/mL (0.00-0.029) H* D 05/16/21 18:40 C-Reactive Protein 13.20 mg/dL (0.00-1.30) H 05/28/21 04:04 Total Protein 6.6 g/dL (6.3-8.2) 05/24/21 04:11 Albumin 2.5 g/dL (3.9-5) L 05/24/21 04:11 Albumin/Globulin Ratio 0.6 % 05/24/21 04:11 Triglycerides 144 mg/dL (2-149) 05/10/21 04:57 Cholesterol 140 mg/dL (50-199) 05/04/21 07:25 LDL Cholesterol Direct 89 mg/dL (50-130) 05/04/21 07:25 HDL Cholesterol 48 mg/dL (40-59) 05/04/21 07:25 Cholesterol/HDL Ratio 2.91 % 05/04/21 07:25 Procalcitonin 0.63 ng/mL (<0.15) 05/09/21 15:53 Urine Color Yellow (Yellow) 05/26/21 09:50 Urine Turbidity Turbid (Clear) 05/26/21 09:50 Urine pH 5.0 (5.0-7.0) 05/26/21 09:50 Ur Specific [place] 1.014 (1.003-1.030) 05/26/21 09:50 Urine Protein 30 mg/dl mg/dL (Negative) 05/26/21 09:50 Urine Glucose (UA) Neg mg/dL (Negative) 05/26/21 09:50 Urine Ketones Neg mg/dL (Negative) 05/26/21 09:50 Urine Blood Sm (Negative) 05/26/21 09:50 Urine Nitrite Neg (Negative) 05/26/21 09:50 Urine Bilirubin Neg (Negative) 05/26/21 09:50 Urine Urobilinogen < 2.0 mg/dL (<2.0) 05/26/21 09:50 Ur Leukocyte Esterase Tr (Negative) 05/26/21 09:50 Urine WBC (Auto) 38.0 /HPF (0.0-6.0) H 05/26/21 09:50 Urine RBC (Auto) 5.0 /HPF (0.0-6.0) 05/26/21 09:50 U Epithel Cells (Auto) 1.0 /HPF (0-13.0) 05/23/21 16:30 Urine Bacteria (Auto) 1+ /HPF (Negative) 05/23/21 16:30 Uric Acid Crystals Few 05/09/21 00:40 Triple Phos Crystals 2+ 05/09/21 13:22 Amorphous Crystals 3+ 05/26/21 09:50 Granular Casts 20 /LPF 05/26/21 09:50 Urine Mucus Few /HPF 05/23/21 16:30 Urine Creatinine 100.1 mg/dL (0.1-20.0) H 05/23/21 16:30 Protein/Creatinin Ratio 0.42 05/10/21 11:03 Urine Sodium 25 mmol/L 05/23/21 16:30 Fraction Sodium Excret 0.3 05/23/21 16:30 Urine Total Protein 42 mg/dL (5-11.8) H 05/10/21 11:03 Vancomycin Trough 15.4 ug/mL (5.0-20.0) 05/29/21 14:15 Urine Opiates Screen Negative 05/04/21 Unknown Urine Methadone Screen Negative 05/04/21 Unknown Ur Barbiturates Screen Negative 05/04/21 Unknown Ur Phencyclidine Scrn Negative 05/04/21 Unknown Ur Amphetamines Screen Positive 05/04/21 Unknown U Benzodiazepines Scrn Negative 05/04/21 Unknown Urine Cocaine Screen Negative 05/04/21 Unknown U Marijuana (THC) Screen Negative 05/04/21 Unknown Drugs of Abuse Note Disclamer 05/04/21 Unknown Immunofix Electrophor see below 05/05/21 03:40 AUDRA Screen Negative (Negative) 05/05/21 03:40 Proteinase 3 (PR3) Ab <1.0 AI (<1.0) 05/05/21 03:40 Myeloperoxidase Ab <1.0 AI (<1.0) 05/05/21 03:40 Complement C3 72 mg/dL (82-185) L 05/05/21 03:40 Complement C4 17 mg/dL (15-53) 05/05/21 03:40 Coronavirus (PCR) Positive (Negative) A 05/05/21 08:30 Hepatitis A IgM Ab Non-reactive (NonReactive) 05/05/21 03:40 Hep Bs Antigen Non-reactive (Negative) 05/05/21 03:40 Hep B Core IgM Ab Non-reactive (NonReactive) 05/05/21 03:40 Hepatitis C Antibody Reactive (NonReactive) A 05/05/21 03:40 Blood Type O POSITIVE 05/23/21 07:12 Antibody Screen Negative 05/23/21 07:12 Crossmatch See Detail 05/23/21 07:12 Microbiology: Microbiology 05/26/21 12:59 Peripheral/Venous Blood Culture - Preliminary NO GROWTH AFTER 72 HOURS 05/26/21 12:59 Peripheral/Venous Blood Culture - Preliminary NO GROWTH AFTER 72 HOURS 05/26/21 09:50 Tracheal Aspirate Sputum Culture - Final [place]/IV: Voiding Method Indwelling Catheter Active Medications - Current Medications Current Medications: Generic Name Dose Route Start Last Admin Trade Name Freq PRN Reason Stop Dose Admin Acetaminophen 650 mg 05/04/21 12:34 05/29/21 13:52 Acetaminophen 325 Mg Tab PO 650 mg Q4H PRN Administration Pain MILD(1-3)/Fever >100.5/MARIA Acetaminophen 650 mg 05/07/21 16:00 05/11/21 16:25 Acetaminophen 650 Mg Rect Supp OK 650 mg Q4H PRN Administration Pain, Mild (1-3) Atorvastatin Calcium 40 mg 05/09/21 22:00 05/28/21 21:09 Atorvastatin 40 Mg Tab FEEDTUBE 40 mg QHS RISHI Administration Chlordiazepoxide HCl 25 mg 05/27/21 20:00 05/29/21 13:53 Chlordiazepoxide 25 Mg Cap PO 05/30/21 19:59 25 mg TID RISHI Administration Dextrose 0 ml 05/09/21 10:49 05/14/21 06:55 Dextrose 10% *Hypoglycemia IV 250 ml PRN PRN Administration Hypoglycemia Fentanyl 50 mcg 05/23/21 15:00 Fentanyl 100 Mcg/2 Ml Inj IV Q10MIN PRN ANALGESIA Haloperidol Lactate 5 mg 05/09/21 18:32 05/18/21 19:52 Haloperidol Lactate 5 Mg/1 Ml Inj IV 5 mg Q6H PRN Administration Agitation Heparin Sodium (Porcine) 5,000 unit 05/27/21 22:00 05/29/21 09:04 Heparin 5,000 Unit/1 Ml Vial SUB-Q 5,000 unit Q12HR RISHI Administration Hydralazine HCl 50 mg 05/04/21 14:00 05/29/21 13:52 Hydralazine 25 Mg Tab PO 50 mg Q8HR RISHI Administration Hydrophilic Ointment 1 applic 05/05/21 15:21 Lip Therapy Vaseline TP Q2HR PRN Dry Lips Fentanyl Citrate 2,000 mcg in 100 mls @ 4.082 mls/hr 05/23/21 15:00 Fentanyl Drip Premix IV TITR RISHI Protocol 1 MCG/KG/HR Ertapenem 1 gm/ Sodium 50 mls @ 100 mls/hr 05/26/21 14:00 05/29/21 09:04 Chloride IV 100 mls/hr QDAY RISHI Administration Insulin Human Lispro 0 unit 05/10/21 09:40 05/12/21 16:49 Insulin Lispro 100 Unit/Ml SUB-Q 2 unit Q6HR PRN Administration Hyperglycemia Protocol Labetalol HCl 10 mg 05/15/21 10:24 05/25/21 08:15 Labetalol 20 Mg/4 Ml Inj IV 10 mg Q4H PRN Administration sbp> 160. Lansoprazole 30 mg 05/26/21 10:00 05/29/21 09:04 Lansoprazole 30 Mg Solutab FEEDTUBE 30 mg BID RISHI Administration Metoprolol Tartrate 50 mg 05/26/21 08:00 05/29/21 13:53 Metoprolol Tartrate 25 Mg Tab FEEDTUBE 50 mg TID RISHI Administration Multi-Ingred Cream/Lotion/Oil/Oint 1 applic 05/05/21 15:21 Mineral Oil/Petrolatum, White Ophth Oint 3.5 Gm OU Q4HR PRN Dry Eye(s) Ondansetron HCl 4 mg 05/04/21 12:34 05/04/21 21:51 Ondansetron 4 Mg/2 Ml Inj IV 4 mg Q8H PRN Administration Nausea And Vomiting Polyethylene Glycol 17 gm 05/26/21 22:00 05/27/21 22:10 Polyethylene Glycol 3350 17 Gm Powder PO 17 gm QHS RISHI Administration Quetiapine Fumarate 100 mg 05/25/21 22:00 05/29/21 09:04 Quetiapine 100 Mg Tab PO 100 mg BID RISHI Administration Senna/Docusate Sodium 1 tab 05/05/21 22:00 05/29/21 09:05 Sennosides/Docusate Sodium 8.6/50 Mg Tab FEEDTUBE Not Given BID RISHI Sodium Chloride 10 ml 05/04/21 22:00 05/29/21 09:05 Sodium Chloride 0.9% 10 Ml Flush Syringe IV 10 ml BID RISHI Administration Sodium Chloride 10 ml 05/04/21 12:34 05/06/21 13:59 Sodium Chloride 0.9% 10 Ml Flush Syringe IV 10 ml PRN PRN Administration LINE FLUSH Sodium Chloride 10 ml 05/09/21 09:46 Sodium Chloride 0.9% 50 Ml Ivpb IV PRN PRN FLUSH Nutrition/Malnutrition Assess - Dietary Evaluation Nutrition/Malnutrition Findings: Nutrition Notes Start: 05/05/21 16:15 Freq: Status: Active Protocol: Document 05/27/21 15:02 ROSAURA (Rec: 05/27/21 15:07 VATIKI [id number]) Nutrition Notes Initial or Follow up Reassessment Current Diagnosis Acute Kidney Injury, Hypertension,Heart Failure, Respiratory Failure Other Pertinent Diagnosis Severe COVID-19 pneu, metabolic encephalopathy, polysubstance dependence Current Diet TF - Nepro at 45ml/hr Labs/Tests BUN 56 Cr 1.8 Pertinent Medications Miralax Height 5 ft 7 in Weight 81.647 kg [place] Body Weight (kg) 67.27 BMI 28.1 Weight Status Overweight Subjective/Other Information Pt re-intubated on 05/23; rectal tube in place as well. Trach /PEG placement pending; awaiting family consent. Per RN, pt tolerating TF at goal rate. Percent of energy/protein needs met: 100% energy 89% pro Burn Absent Trauma Absent #1 Nutrition Diagnosis Inadequate oral intake Diagnosis Progress(for reassessment Continues documentation) Is patient on ventilator? Yes Is Patient Ambulatory and/or Out of Bed No REE-([facility]-confined to bed) [phone] Calculation Used for Recommendations [facility] Additional Notes Pro needs 1.2-2g/k-163g/ day Fluid needs 1ml/kcal Nutrition Intervention Nutrition Support: Continue Nepro at 45ml/hr with 200ml water flush q4h. Kcal 1,944 Protein (gm) 87 Carbohydrates (gm) 174 Fat (gm) 104 Fluid (mL) 785 Fiber (gm) 14 Goal #1 TF tolerance Goal #2 TF to meet at least 75% energy and pro needs Follow-Up By: 06/03/21 Additional Comments F/U: vent status, stable TF, trach/PEG placement <LALA RODARTE - Last Filed: 05/30/21 12:12> Assessment and Plan Assessment and plan: I saw and evaluated the patient. Discussed with the nurse practitioner and agree with their findings and plan as documented in this note. Hospitalist Physical - Constitutional Vitals: Temp Pulse Resp BP Pulse Ox 100.4 F H 70 50 H 146/94 96 05/30/21 08:51 05/30/21 09:00 05/30/21 09:00 05/30/21 09:00 05/30/21 09:00 HEART Score - HEART Score Troponin: Troponin T 0.400 ng/mL (0.00-0.029) H* D 05/16/21 18:40 Results - Labs CBC & Chem 7: 05/29/21 11:16 05/30/21 05:07 Labs: Laboratory Last Values WBC 12.2 K/mm3 (4.5-11.0) H 05/29/21 11:16 RBC 2.94 M/mm3 (3.65-5.03) L 05/29/21 11:16 Hgb 8.7 gm/dl (11.8-15.2) L 05/29/21 11:16 Hct 27.2 % (35.5-45.6) L 05/29/21 11:16 MCV 92 fl (84-94) 05/29/21 11:16 MCH 30 pg (28-32) 05/29/21 11:16 MCHC 32 % (32-34) 05/29/21 11:16 RDW 15.8 % (13.2-15.2) H 05/29/21 11:16 Plt Count 388 K/mm3 (140-440) 05/29/21 11:16 Lymph % (Auto) [employer] 05/16/21 10:21 [place] % (Auto) [employer] 05/16/21 10:21 Eos % (Auto) [employer] 05/16/21 10:21 Baso % (Auto) [employer] 05/16/21 10:21 Lymph # (Auto) [employer] 05/16/21 10:21 [place] # (Auto) [employer] 05/16/21 10:21 Eos # (Auto) [employer] 05/16/21 10:21 Baso # (Auto) [employer] 05/16/21 10:21 Add Manual Diff Complete 05/28/21 04:04 Total Counted 100 05/28/21 04:04 Seg Neutrophils % [employer] 05/16/21 10:21 Seg Neuts % (Manual) 93.0 % (40.0-70.0) H 05/28/21 04:04 Band Neutrophils % 1.0 % 05/28/21 04:04 Lymphocytes % (Manual) 2.0 % (13.4-35.0) L 05/28/21 04:04 Reactive Lymphs % (Man) 0 % 05/28/21 04:04 Monocytes % (Manual) 4.0 % (0.0-7.3) 05/28/21 04:04 Eosinophils % (Manual) 0 % (0.0-4.3) 05/28/21 04:04 Basophils % (Manual) 0 % (0.0-1.8) 05/28/21 04:04 Metamyelocytes % 0 % 05/28/21 04:04 Myelocytes % 0 % 05/28/21 04:04 Promyelocytes % 0 % 05/28/21 04:04 Blast Cells % 0 % 05/28/21 04:04 Nucleated RBC % Not Reportable 05/28/21 04:04 Seg Neutrophils # [employer] 05/16/21 10:21 Seg Neutrophils # Man 13.1 K/mm3 (1.8-7.7) H 05/28/21 04:04 Band Neutrophils # 0.1 K/mm3 05/28/21 04:04 Lymphocytes # (Manual) 0.3 K/mm3 (1.2-5.4) L 05/28/21 04:04 Abs React Lymphs (Man) 0.0 K/mm3 05/28/21 04:04 Monocytes # (Manual) 0.6 K/mm3 (0.0-0.8) 05/28/21 04:04 Eosinophils # (Manual) 0.0 K/mm3 (0.0-0.4) 05/28/21 04:04 Basophils # (Manual) 0.0 K/mm3 (0.0-0.1) 05/28/21 04:04 Metamyelocytes # 0.0 K/mm3 05/28/21 04:04 Myelocytes # 0.0 K/mm3 05/28/21 04:04 Promyelocytes # 0.0 K/mm3 05/28/21 04:04 Blast Cells # 0.0 K/mm3 05/28/21 04:04 WBC Morphology Not Reportable 05/28/21 04:04 Hypersegmented Neuts Not Reportable 05/28/21 04:04 Hyposegmented Neuts Not Reportable 05/28/21 04:04 Hypogranular Neuts Not Reportable 05/28/21 04:04 Smudge Cells Not Reportable 05/28/21 04:04 Toxic Granulation Not Reportable 05/28/21 04:04 Toxic Vacuolation Not Reportable 05/28/21 04:04 Dohle Bodies Not Reportable 05/28/21 04:04 Pelger-Huet Anomaly Not Reportable 05/28/21 04:04 Jesse Rods Not Reportable 05/28/21 04:04 Platelet Estimate Consistent w auto 05/28/21 04:04 Clumped Platelets Not Reportable 05/28/21 04:04 Plt Clumps, EDTA Not Reportable 05/28/21 04:04 Large Platelets Not Reportable 05/28/21 04:04 Giant Platelets Not Reportable 05/28/21 04:04 Platelet Satelliting Not Reportable 05/28/21 04:04 Plt Morphology Comment Not Reportable 05/28/21 04:04 RBC Morphology Not Reportable 05/28/21 04:04 Dimorphic RBCs Not Reportable 05/28/21 04:04 Polychromasia Not Reportable 05/28/21 04:04 Hypochromasia Not Reportable 05/28/21 04:04 Poikilocytosis Not Reportable 05/28/21 04:04 Anisocytosis 1+ 05/28/21 04:04 Microcytosis Not Reportable 05/28/21 04:04 Macrocytosis Not Reportable 05/28/21 04:04 Spherocytes Not Reportable 05/28/21 04:04 Pappenheimer Bodies Not Reportable 05/28/21 04:04 Sickle Cells Not Reportable 05/28/21 04:04 Target Cells Not Reportable 05/28/21 04:04 Tear Drop Cells Not Reportable 05/28/21 04:04 Ovalocytes Not Reportable 05/28/21 04:04 Helmet Cells Not Reportable 05/28/21 04:04 [place] Bodies Not Reportable 05/28/21 04:04 [place] Rings Not Reportable 05/28/21 04:04 [place] Cells Not Reportable 05/28/21 04:04 Bite Cells Not Reportable 05/28/21 04:04 Crenated Cell Not Reportable 05/28/21 04:04 Elliptocytes Not Reportable 05/28/21 04:04 Acanthocytes (Spur) Not Reportable 05/28/21 04:04 Rouleaux Not Reportable 05/28/21 04:04 Hemoglobin C Crystals Not Reportable 05/28/21 04:04 Schistocytes Not Reportable 05/28/21 04:04 Malaria parasites Not Reportable 05/28/21 04:04 Tomi Bodies Not Reportable 05/28/21 04:04 Haptoglobin 254 mg/dL (43-212) H 05/23/21 18:54 Hem Pathologist Commnt No 05/28/21 04:04 PT 14.9 Sec. (12.2-14.9) 05/25/21 04:25 INR 1.05 (0.87-1.13) 05/25/21 04:25 APTT 72.5 Sec. (24.2-36.6) H* 05/19/21 19:36 D-Dimer 2730.61 ng/mlDDU (0-234) H 05/12/21 07:19 Heparin Anti-Xa Level 0.47 U.I./ml (0.3-0.7) 05/19/21 05:23 ABG pH 7.443 pH Units (7.350-7.450) 05/27/21 09:20 ABG pCO2 38.8 mm Hg 05/27/21 09:20 ABG pO2 115.2 mm Hg (80.0-90.0) H 05/27/21 09:20 ABG HCO3 25.9 mmol/L (20.0-26.0) 05/27/21 09:20 ABG O2 Saturation 98.3 % (95.0-99.0) 05/27/21 09:20 ABG O2 Content 12.5 (0.0-44) 05/27/21 09:20 ABG Base Excess 1.7 mmol/L (-2.0-3.0) 05/27/21 09:20 ABG Hemoglobin 9.2 gm/dl (14.0-18.0) L 05/27/21 09:20 ABG Carboxyhemoglobin 2.2 % (0.0-5.0) 05/27/21 09:20 ABG Methemoglobin 0.7 % (0.0-1.5) 05/27/21 09:20 Oxyhemoglobin 95.4 % (95.0-99.0) 05/27/21 09:20 FiO2 30 % 05/27/21 09:20 Sodium 140 mmol/L (137-145) 05/30/21 05:07 Potassium 4.0 mmol/L (3.6-5.0) 05/30/21 05:07 Chloride 105.4 mmol/L (98-107) 05/30/21 05:07 Carbon Dioxide 24 mmol/L (22-30) 05/30/21 05:07 Anion Gap 15 mmol/L 05/30/21 05:07 BUN 55 mg/dL (9-20) H 05/30/21 05:07 Creatinine 1.5 mg/dL (0.8-1.3) H 05/30/21 05:07 Estimated GFR 48 ml/min 05/30/21 05:07 BUN/Creatinine Ratio 37 % 05/30/21 05:07 Glucose 129 mg/dL (75-100) H 05/30/21 05:07 POC Glucose 110 mg/dL (70-105) H 05/30/21 11:30 Lactic Acid 0.90 mmol/L (0.7-2.0) 05/20/21 09:17 Calcium 8.2 mg/dL (8.4-10.2) L 05/30/21 05:07 Phosphorus 3.20 mg/dL (2.5-4.5) 05/30/21 05:07 Magnesium 2.10 mg/dL (1.7-2.3) 05/30/21 05:07 Iron 10 ug/dL (49-181) L 05/23/21 Unknown TIBC 151 mcg/dL (250-450) L 05/23/21 Unknown Ferritin 640.2 ng/mL (30.0-300.0) H 05/12/21 07:19 Total Bilirubin 0.50 mg/dL (0.1-1.2) 05/24/21 04:11 AST 152 units/L (5-40) H 05/24/21 04:11 ALT 125 units/L (7-56) H 05/24/21 04:11 Alkaline Phosphatase 72 units/L (35-129) 05/24/21 04:11 Lactate Dehydrogenase 311 units/L (91-180) H 05/23/21 Unknown Total Creatine Kinase 406 units/L (55-170) H 05/04/21 08:42 Troponin T 0.400 ng/mL (0.00-0.029) H* D 05/16/21 18:40 C-Reactive Protein 13.20 mg/dL (0.00-1.30) H 05/28/21 04:04 Total Protein 6.6 g/dL (6.3-8.2) 05/24/21 04:11 Albumin 2.5 g/dL (3.9-5) L 05/24/21 04:11 Albumin/Globulin Ratio 0.6 % 05/24/21 04:11 Triglycerides 144 mg/dL (2-149) 05/10/21 04:57 Cholesterol 140 mg/dL (50-199) 05/04/21 07:25 LDL Cholesterol Direct 89 mg/dL (50-130) 05/04/21 07:25 HDL Cholesterol 48 mg/dL (40-59) 05/04/21 07:25 Cholesterol/HDL Ratio 2.91 % 05/04/21 07:25 Procalcitonin 0.63 ng/mL (<0.15) 05/09/21 15:53 Urine Color Yellow (Yellow) 05/26/21 09:50 Urine Turbidity Turbid (Clear) 05/26/21 09:50 Urine pH 5.0 (5.0-7.0) 05/26/21 09:50 Ur Specific [place] 1.014 (1.003-1.030) 05/26/21 09:50 Urine Protein 30 mg/dl mg/dL (Negative) 05/26/21 09:50 Urine Glucose (UA) Neg mg/dL (Negative) 05/26/21 09:50 Urine Ketones Neg mg/dL (Negative) 05/26/21 09:50 Urine Blood Sm (Negative) 05/26/21 09:50 Urine Nitrite Neg (Negative) 05/26/21 09:50 Urine Bilirubin Neg (Negative) 05/26/21 09:50 Urine Urobilinogen < 2.0 mg/dL (<2.0) 05/26/21 09:50 Ur Leukocyte Esterase Tr (Negative) 05/26/21 09:50 Urine WBC (Auto) 38.0 /HPF (0.0-6.0) H 05/26/21 09:50 Urine RBC (Auto) 5.0 /HPF (0.0-6.0) 05/26/21 09:50 U Epithel Cells (Auto) 1.0 /HPF (0-13.0) 05/23/21 16:30 Urine Bacteria (Auto) 1+ /HPF (Negative) 05/23/21 16:30 Uric Acid Crystals Few 05/09/21 00:40 Triple Phos Crystals 2+ 05/09/21 13:22 Amorphous Crystals 3+ 05/26/21 09:50 Granular Casts 20 /LPF 05/26/21 09:50 Urine Mucus Few /HPF 05/23/21 16:30 Urine Creatinine 100.1 mg/dL (0.1-20.0) H 05/23/21 16:30 Protein/Creatinin Ratio 0.42 05/10/21 11:03 Urine Sodium 25 mmol/L 05/23/21 16:30 Fraction Sodium Excret 0.3 05/23/21 16:30 Urine Total Protein 42 mg/dL (5-11.8) H 05/10/21 11:03 Vancomycin Trough 15.4 ug/mL (5.0-20.0) 05/29/21 14:15 Urine Opiates Screen Negative 05/04/21 Unknown Urine Methadone Screen Negative 05/04/21 Unknown Ur Barbiturates Screen Negative 05/04/21 Unknown Ur Phencyclidine Scrn Negative 05/04/21 Unknown Ur Amphetamines Screen Positive 05/04/21 Unknown U Benzodiazepines Scrn Negative 05/04/21 Unknown Urine Cocaine Screen Negative 05/04/21 Unknown U Marijuana (THC) Screen Negative 05/04/21 Unknown Drugs of Abuse Note Disclamer 05/04/21 Unknown Immunofix Electrophor see below 05/05/21 03:40 AUDRA Screen Negative (Negative) 05/05/21 03:40 Proteinase 3 (PR3) Ab <1.0 AI (<1.0) 05/05/21 03:40 Myeloperoxidase Ab <1.0 AI (<1.0) 05/05/21 03:40 Complement C3 72 mg/dL (82-185) L 05/05/21 03:40 Complement C4 17 mg/dL (15-53) 05/05/21 03:40 Coronavirus (PCR) Positive (Negative) A 05/05/21 08:30 Hepatitis A IgM Ab Non-reactive (NonReactive) 05/05/21 03:40 Hep Bs Antigen Non-reactive (Negative) 05/05/21 03:40 Hep B Core IgM Ab Non-reactive (NonReactive) 05/05/21 03:40 Hepatitis C Antibody Reactive (NonReactive) A 05/05/21 03:40 Blood Type O POSITIVE 05/23/21 07:12 Antibody Screen Negative 05/23/21 07:12 Crossmatch See Detail 05/23/21 07:12 Microbiology: Microbiology 05/26/21 12:59 Peripheral/Venous Blood Culture - Preliminary NO GROWTH AFTER 72 HOURS 05/26/21 12:59 Peripheral/Venous Blood Culture - Preliminary NO GROWTH AFTER 72 HOURS 05/26/21 09:50 Tracheal Aspirate Sputum Culture - Final [place]/IV: Voiding Method Indwelling Catheter Active Medications - Current Medications Current Medications: Generic Name Dose Route Start Last Admin Trade Name Freq PRN Reason Stop Dose Admin Acetaminophen 650 mg 05/04/21 12:34 05/30/21 09:30 Acetaminophen 325 Mg Tab PO 650 mg Q4H PRN Administration Pain MILD(1-3)/Fever >100.5/MARIA Acetaminophen 650 mg 05/07/21 16:00 05/11/21 16:25 Acetaminophen 650 Mg Rect Supp OK 650 mg Q4H PRN Administration Pain, Mild (1-3) Atorvastatin Calcium 40 mg 05/09/21 22:00 05/29/21 21:00 Atorvastatin 40 Mg Tab FEEDTUBE 40 mg QHS RISHI Administration Chlordiazepoxide HCl 25 mg 05/27/21 20:00 05/30/21 08:20 Chlordiazepoxide 25 Mg Cap PO 05/30/21 19:59 25 mg TID RISHI Administration Dextrose 0 ml 05/09/21 10:49 05/14/21 06:55 Dextrose 10% *Hypoglycemia IV 250 ml PRN PRN Administration Hypoglycemia Fentanyl 50 mcg 05/23/21 15:00 Fentanyl 100 Mcg/2 Ml Inj IV Q10MIN PRN ANALGESIA Fentanyl 50 mcg 05/30/21 12:00 Fentanyl 100 Mcg/2 Ml Inj IV 05/30/21 15:00 ONCE@1200 RISHI Haloperidol Lactate 5 mg 05/09/21 18:32 05/18/21 19:52 Haloperidol Lactate 5 Mg/1 Ml Inj IV 5 mg Q6H PRN Administration Agitation Heparin Sodium (Porcine) 5,000 unit 05/27/21 22:00 05/30/21 09:29 Heparin 5,000 Unit/1 Ml Vial SUB-Q 5,000 unit Q12HR [facility] Administration Hydralazine HCl 50 mg 05/04/21 14:00 05/30/21 05:17 Hydralazine 25 Mg Tab PO 50 mg Q8HR [facility] Administration Hydrophilic Ointment 1 applic 05/05/21 15:21 Lip Therapy Vaseline TP Q2HR PRN Dry Lips Fentanyl Citrate 2,000 mcg in 100 mls @ 4.082 mls/hr 05/23/21 15:00 Fentanyl Drip Premix IV TITR RISHI Protocol 1 MCG/KG/HR Ertapenem 1 gm/ Sodium 50 mls @ 100 mls/hr 05/26/21 14:00 05/30/21 09:30 Chloride IV 100 mls/hr QDAY [facility] Administration Insulin Human Lispro 0 unit 05/10/21 09:40 05/12/21 16:49 Insulin Lispro 100 Unit/Ml SUB-Q 2 unit Q6HR PRN Administration Hyperglycemia Protocol Labetalol HCl 10 mg 05/15/21 10:24 05/25/21 08:15 Labetalol 20 Mg/4 Ml Inj IV 10 mg Q4H PRN Administration sbp> 160. Lansoprazole 30 mg 05/26/21 10:00 05/30/21 09:29 Lansoprazole 30 Mg Solutab FEEDTUBE 30 mg BID RISHI Administration Metoprolol Tartrate 50 mg 05/26/21 08:00 05/30/21 08:20 Metoprolol Tartrate 25 Mg Tab FEEDTUBE 50 mg TID RISHI Administration Multi-Ingred Cream/Lotion/Oil/Oint 1 applic 05/05/21 15:21 Mineral Oil/Petrolatum, White Ophth Oint 3.5 Gm OU Q4HR PRN Dry Eye(s) Ondansetron HCl 4 mg 05/04/21 12:34 05/04/21 21:51 Ondansetron 4 Mg/2 Ml Inj IV 4 mg Q8H PRN Administration Nausea And Vomiting Oxycodone HCl 5 mg 05/30/21 11:00 Oxycodone 5 Mg Tab PO Q6H PRN Pain, Moderate (4-6) Polyethylene Glycol 17 gm 05/26/21 22:00 05/30/21 00:13 Polyethylene Glycol 3350 17 Gm Powder PO Not Given QHS RISHI Quetiapine Fumarate 50 mg 05/30/21 22:00 Quetiapine 25 Mg Tab PO BID RISHI Senna/Docusate Sodium 1 tab 05/05/21 22:00 05/30/21 00:12 Sennosides/Docusate Sodium 8.6/50 Mg Tab FEEDTUBE Not Given BID RISHI Sodium Chloride 10 ml 05/04/21 22:00 05/30/21 09:30 Sodium Chloride 0.9% 10 Ml Flush Syringe IV 10 ml BID RISHI Administration Sodium Chloride 10 ml 05/04/21 12:34 05/06/21 13:59 Sodium Chloride 0.9% 10 Ml Flush Syringe IV 10 ml PRN PRN Administration LINE FLUSH Sodium Chloride 10 ml 05/09/21 09:46 Sodium Chloride 0.9% 50 Ml Ivpb IV PRN PRN FLUSH Nutrition/Malnutrition Assess - Dietary Evaluation Nutrition/Malnutrition Findings: Nutrition Notes Start: 05/05/21 16:15 Freq: Status: Active Protocol: Document 05/27/21 15:02 VIDATIKI (Rec: 05/27/21 15:07 ROSAURA [id number]) Nutrition Notes Initial or Follow up Reassessment Current Diagnosis Acute Kidney Injury, Hypertension,Heart Failure, Respiratory Failure Other Pertinent Diagnosis Severe COVID-19 pneu, metabolic encephalopathy, polysubstance dependence Current Diet TF - Nepro at 45ml/hr Labs/Tests BUN 56 Cr 1.8 Pertinent Medications Miralax Height 5 ft 7 in Weight 81.647 kg [place] Body Weight (kg) 67.27 BMI 28.1 Weight Status Overweight Subjective/Other Information Pt re-intubated on 05/23; rectal tube in place as well. Trach /PEG placement pending; awaiting family consent. Per RN, pt tolerating TF at goal rate. Percent of energy/protein needs met: 100% energy 89% pro Burn Absent Trauma Absent #1 Nutrition Diagnosis Inadequate oral intake Diagnosis Progress(for reassessment Continues documentation) Is patient on ventilator? Yes Is Patient Ambulatory and/or Out of Bed No REE-([facility]-confined to bed) [phone] Calculation Used for Recommendations [facility] Additional Notes Pro needs 1.2-2g/k-163g/ day Fluid needs 1ml/kcal Nutrition Intervention Nutrition Support: Continue Nepro at 45ml/hr with 200ml water flush q4h. Kcal 1,944 Protein (gm) 87 Carbohydrates (gm) 174 Fat (gm) 104 Fluid (mL) 785 Fiber (gm) 14 Goal #1 TF tolerance Goal #2 TF to meet at least 75% energy and pro needs Follow-Up By: 06/03/21 Additional Comments F/U: vent status, stable TF, trach/PEG placement
[2021-05-30] MEDS: SENNOSIDES/DOCUSATE SODIUM 8.6/50 MG TAB FEEDTUBE SCH ×3 (00:12→21:16)
[2021-05-30] MEDS: POLYETHYLENE GLYCOL 3350 17 GM POWDER PO SCH ×2 (00:13→21:16)
[2021-05-30] MEDS: ACETAMINOPHEN 325 MG TAB PO PRN ×2 (04:03→09:30)
[2021-05-30] MEDS: hydrALAZINE 25 MG TAB PO SCH ×3 (05:17→21:16)
[2021-05-30 05:50] LABS: Calcium 8.2 mg/dL (8.4-10.2)
[2021-05-30] MEDS: chlordiazePOXIDE 25 MG CAP PO SCH ×2 (08:20→14:55)
[2021-05-30] MEDS: METOPROLOL TARTRATE 25 MG TAB FEEDTUBE SCH ×3 (08:20→20:26)
[2021-05-30] MEDS: HEPARIN 5,000 UNIT/1 ML VIAL SUB-Q SCH ×2 (09:29→21:16)
[2021-05-30] MEDS: LANSOPRAZOLE 30 MG SOLUTAB FEEDTUBE SCH ×2 (09:29→21:16)
[2021-05-30] MEDS: ERTAPENEM 1 GM in SODIUM CHLORIDE 0.9% 50 ML IV SCH (09:30)
--- NOTE | 2021-05-30 10:08 | Progress Note ---
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 --SCr 1.0mg/dL in August 2020 * Acute hypoxic respiratory failure * Atrial fibrillation * Cardiomyopathy * NSTEMI * COVID 19 infection * Hepatitis C * Hypertension * Anemia * Metabolic acidosis * Methamphetamine abuse * Transaminitis Plan: * Renal function is stable - SCr 1.5mg/dL today * Lytes are stable - hyperK and hyperNa resolved * Renal ultrasound reviewed - will need follow up CT once stable * Continue antiHTN medications * Cardiology recommendations noted * Dose medications for renal function * Avoid potential nephrotoxins * Strict I/O Subjective Date of service: 05/30/21 Principal diagnosis: AHRF; COVID-19 infection; NSTEMI; YE; HFrEF (35-40%); Polysubstance abuse Interval history: Patient remains intubated - TV 450, Rate 16, FiO2 25%, PEEP 8 Objective - Vital Signs Vital signs: Vital Signs - 12hr 05/29/21 05/29/21 05/29/21 22:11 22:57 23:00 Temperature Pulse Rate 65 65 67 Pulse Rate [ From Monitor] Respiratory 30 H 32 H Rate Blood Pressure 98/64 100/67 103/70 O2 Sat by Pulse 99 99 100 Oximetry 05/29/21 05/30/21 05/30/21 23:43 00:00 01:00 Temperature 99.9 F H Pulse Rate 68 70 Pulse Rate [ 68 From Monitor] Respiratory 26 H 37 H Rate Blood Pressure 106/70 119/79 O2 Sat by Pulse 99 99 Oximetry 05/30/21 05/30/21 05/30/21 02:00 03:00 03:10 Temperature 100.2 F H Pulse Rate 77 76 Pulse Rate [ From Monitor] Respiratory 22 21 Rate Blood Pressure 121/85 124/86 O2 Sat by Pulse 99 98 Oximetry 05/30/21 05/30/21 05/30/21 04:00 04:31 05:00 Temperature Pulse Rate 71 77 79 Pulse Rate [ 71 From Monitor] Respiratory 32 H 23 Rate Blood Pressure 137/90 134/92 130/92 O2 Sat by Pulse 99 99 98 Oximetry 05/30/21 05/30/21 05/30/21 05:17 06:00 07:00 Temperature Pulse Rate 78 80 81 Pulse Rate [ From Monitor] Respiratory 22 24 Rate Blood Pressure 130/92 139/92 142/90 O2 Sat by Pulse 98 98 Oximetry 05/30/21 05/30/21 05/30/21 07:33 08:00 08:20 Temperature Pulse Rate 80 80 79 Pulse Rate [ 80 From Monitor] Respiratory 18 Rate Blood Pressure 131/88 141/93 141/93 O2 Sat by Pulse 99 99 Oximetry 05/30/21 05/30/21 08:51 09:00 Temperature 100.4 F H Pulse Rate 69 Pulse Rate [ From Monitor] Respiratory 21 Rate Blood Pressure 150/98 O2 Sat by Pulse 99 Oximetry - General Appearance General appearance: intubated EENT: ATNC, other (ETT in place) Respiratory: Present: Other (coarse BS) Cardiology: regular, S1S2 Gastrointestinal: no tenderness, no distended - Lab 05/31/21 04:11 05/31/21 04:11 Most recent lab results ABG pH 7.443 pH Units (7.350-7.450) 05/27/21 09:20 ABG pCO2 38.8 mm Hg 05/27/21 09:20 ABG pO2 115.2 mm Hg (80.0-90.0) H 05/27/21 09:20 ABG HCO3 25.9 mmol/L (20.0-26.0) 05/27/21 09:20 ABG O2 Saturation 98.3 % (95.0-99.0) 05/27/21 09:20 Calcium 8.2 mg/dL (8.4-10.2) L 05/30/21 05:07 Phosphorus 3.20 mg/dL (2.5-4.5) 05/30/21 05:07 Magnesium 2.10 mg/dL (1.7-2.3) 05/30/21 05:07 Urine Creatinine 100.1 mg/dL (0.1-20.0) H 05/23/21 16:30 Urine Sodium 25 mmol/L 05/23/21 16:30 Urine Total Protein 42 mg/dL (5-11.8) H 05/10/21 11:03 Medications & Allergies - Medications Allergies/Adverse Reactions: Allergies No Known Allergies Allergy (Verified 05/08/21 07:47) Home Medications: Home Medications Medication Instructions Recorded Confirmed Last Taken Type Cefpodoxime Proxetil 200 mg PO Q12H #10 tablet 09/11/20 05/19/21 Unknown Rx Famotidine [Pepcid] 20 mg PO BID #30 tablet 04/13/21 05/19/21 Unknown Rx Losartan [Cozaar] 100 mg PO QDAY #60 tablet 04/13/21 05/19/21 Unknown Rx Metoprolol Xl [Metoprolol 25 mg PO QDAY #30 tablet 04/13/21 05/19/21 Unknown Rx SUCCINATE ER TAB] NIFEdipine XL [Procardia Xl] 60 mg PO Q12HR #60 tablet 04/13/21 05/19/21 Unknown Rx hydrALAZINE [Apresoline TAB] 50 mg PO Q8HR #180 tablet 04/13/21 05/19/21 Unknown Rx Active Medications: Generic Name Dose Route Start Last Admin Trade Name Freq PRN Reason Stop Dose Admin Acetaminophen 650 mg 05/04/21 12:34 05/30/21 09:30 Acetaminophen 325 Mg Tab PO 650 mg Q4H PRN Administration Pain MILD(1-3)/Fever >100.5/MARIA Acetaminophen 650 mg 05/07/21 16:00 05/11/21 16:25 Acetaminophen 650 Mg Rect Supp WI 650 mg Q4H PRN Administration Pain, Mild (1-3) Atorvastatin Calcium 40 mg 05/09/21 22:00 05/29/21 21:00 Atorvastatin 40 Mg Tab FEEDTUBE 40 mg QHS RISHI Administration Chlordiazepoxide HCl 25 mg 05/27/21 20:00 05/30/21 08:20 Chlordiazepoxide 25 Mg Cap PO 05/30/21 19:59 25 mg TID RISHI Administration Dextrose 0 ml 05/09/21 10:49 05/14/21 06:55 Dextrose 10% *Hypoglycemia IV 250 ml PRN PRN Administration Hypoglycemia Fentanyl 50 mcg 05/23/21 15:00 Fentanyl 100 Mcg/2 Ml Inj IV Q10MIN PRN ANALGESIA Haloperidol Lactate 5 mg 05/09/21 18:32 05/18/21 19:52 Haloperidol Lactate 5 Mg/1 Ml Inj IV 5 mg Q6H PRN Administration Agitation Heparin Sodium (Porcine) 5,000 unit 05/27/21 22:00 05/30/21 09:29 Heparin 5,000 Unit/1 Ml Vial SUB-Q 5,000 unit Q12HR RISHI Administration Hydralazine HCl 50 mg 05/04/21 14:00 05/30/21 05:17 Hydralazine 25 Mg Tab PO 50 mg Q8HR RISHI Administration Hydrophilic Ointment 1 applic 05/05/21 15:21 Lip Therapy Vaseline TP Q2HR PRN Dry Lips Fentanyl Citrate 2,000 mcg in 100 mls @ 4.082 mls/hr 05/23/21 15:00 Fentanyl Drip Premix IV TITR RISHI Protocol 1 MCG/KG/HR Ertapenem 1 gm/ Sodium 50 mls @ 100 mls/hr 05/26/21 14:00 05/30/21 09:30 Chloride IV 100 mls/hr QDAY RISHI Administration Insulin Human Lispro 0 unit 05/10/21 09:40 05/12/21 16:49 Insulin Lispro 100 Unit/Ml SUB-Q 2 unit Q6HR PRN Administration Hyperglycemia Protocol Labetalol HCl 10 mg 05/15/21 10:24 05/25/21 08:15 Labetalol 20 Mg/4 Ml Inj IV 10 mg Q4H PRN Administration sbp> 160. Lansoprazole 30 mg 05/26/21 10:00 05/30/21 09:29 Lansoprazole 30 Mg Solutab FEEDTUBE 30 mg BID RISHI Administration Metoprolol Tartrate 50 mg 05/26/21 08:00 05/30/21 08:20 Metoprolol Tartrate 25 Mg Tab FEEDTUBE 50 mg TID RISHI Administration Multi-Ingred Cream/Lotion/Oil/Oint 1 applic 05/05/21 15:21 Mineral Oil/Petrolatum, White Ophth Oint 3.5 Gm OU Q4HR PRN Dry Eye(s) Ondansetron HCl 4 mg 05/04/21 12:34 05/04/21 21:51 Ondansetron 4 Mg/2 Ml Inj IV 4 mg Q8H PRN Administration Nausea And Vomiting Polyethylene Glycol 17 gm 05/26/21 22:00 05/30/21 00:13 Polyethylene Glycol 3350 17 Gm Powder PO Not Given QHS [facility] Quetiapine Fumarate 100 mg 05/25/21 22:00 05/29/21 21:00 Quetiapine 100 Mg Tab PO 100 mg BID [facility] Administration Senna/Docusate Sodium 1 tab 05/05/21 22:00 05/30/21 00:12 Sennosides/Docusate Sodium 8.6/50 Mg Tab FEEDTUBE Not Given BID RISHI Sodium Chloride 10 ml 05/04/21 22:00 05/30/21 09:30 Sodium Chloride 0.9% 10 Ml Flush Syringe IV 10 ml BID RISHI Administration Sodium Chloride 10 ml 05/04/21 12:34 05/06/21 13:59 Sodium Chloride 0.9% 10 Ml Flush Syringe IV 10 ml PRN PRN Administration LINE FLUSH Sodium Chloride 10 ml 05/09/21 09:46 Sodium Chloride 0.9% 50 Ml Ivpb IV PRN PRN FLUSH
--- NOTE | 2021-05-30 10:27 | Progress Note ---
Assessment and Plan Assessment and plan: This is a homeless 56-year-old male with past medical history of nicotine and cocaine abuse, atrial fibrillation, hypertension and chronic medication noncompliance admitted for acute hypoxic respiratory failure 2/2 COVID pneumonia s/p X3 intubation. Remains in the ICU on ventilatory support. Hospital Course to Date: 05/04/2021. Cardiology was considering patient for [place] [facility]. However, patient with elevated creatinine therefore will hold off on cath evaluation. Nephrology consultation for acute kidney injury. Etiology likely secondary to vasomotor nephropathy/dehydration. We will start IV fluid hydration. Check renal ultrasound to rule out obstructive uropathy. We will resume home medications for the accelerated hypertension 05/05/2021. Echocardiogram reveals EF 35-40% with moderate concentric left ventricular hypertrophy. Moderate global hypokinesis of left ventricle. Mild mitral regurgitation. Mild pulmonary hypertension. Troponins are believed to be elevated in the setting of acute kidney injury. No beta-blockers due to cocaine use continue heparin and nitro drip. Continue CIWA protocol. Await urine studies 05/06/2021. Patient decompensated yesterday with worsening respiratory failure and difficulty to protect airway. Patient was breathing sonorously, and hypoxic. Patient was intubated and currently is on mechanical ventilation. Patient with AC mode ventilation rate of 20, tidal volume 450, FiO2 40% and PEEP of 6. COVID PCR testing on 05/05/2021 was found to be positive. Echocardiogram completed on this admission shows worsening EF from August 2020. Echocardiogram now reveals moderate concentric left ventricular hypertrophy with moderate global hypokinesis and EF of 35-40%. Mild pulmonary hypertension. 05/08: Continue current management, renal stable, LFTs stable and if improved will start on statin therapy. 05/09: Patient is febrile, will panculture, PSV today. CRP pending. Mucoid discharge noted from meatus which was sent for culture. Hypernatremia persists, free water flushes increased 05/10: PSV trial per [facility], T-max 102.3, given mildly elevated procalcitonin started on ceftriaxone 2 g every 24 for 2 days per ID. Overnight patient had atrial fibrillation which was treated with Cardizem drip and converted to sinus rhythm. Metoprolol p.o. increased to 3 times daily. 05/11: Patient still running fevers and if still febrile tomorrow will escalate to cefepime per ID as he is currently on ceftriaxone, CCM attempted PSV but patient became agitated and was switched back to pressure control. Lower extremity ultrasound shows acute DVT and started on heparin drip. Started on scheduled Librium. Patient remains with hypernatremia and elevated creatinine and on IV fluids. Free water flushes adjusted. Started on vancomycin today 05/12: Patient placed on pressure support trial without fentanyl, hypernatremia improving, hyperkalemia noted. Slight improvement to renal function. 05/13: Patient was extubated today, ID change antibiotics to Zosyn for Enterococcus, was started tapering Librium in the morning, renal function slightly improved. Possible transfer to floor tomorrow. ST evaluation for swallow ordered. 05/14: Patient became hypoglycemic overnight and started on dextrose IV fluids. Accu-Chek fingersticks have been low but on a.m. BMP patient blood glucose is 100. Other BMP pending. Feeding tube replaced due to need for enteral access and patient being severely confused. Renal functions remains the same. Upon confirmation will restart tube feedings, p.o. medications and free water flu shes. 05/15: Remains confused/somnolent on my encounter. Librium taper in 24hrs per PCCM recs. Remains hypertensive. Added amlodipine 10 mg NG and labetalol prn. ST eval today but doubt he will participate. Potassium replaced. Renal function improving overall, however, hypernatremic. Inc TF FWF to 250 cc q4hr. 05/16: Respiratory distress this AM, hypoxic in 60's not protecting airway. Required intubation, patient now ICU patient. Reduce fluid to FWF only, IVF d/c off jun. CXR ordered demonstrates pulmonary edema. Lasix 40 mg IV bid ordered. Troponin elevated, continue heparin gtt. Would recommend decreasing sedating medications at this point, agree with librium taper. 05/17: Patient remains on the vent and sedated, RASS -3. Plan for possible sedation vacation today. D/w CCM plan to wean for possible extubation on the vent. 22: Tolerated 4hrs of sedation vacation yesterday, on low dose fentanyl this am. Patient is tolerating PST this am. Plan to wean off sedation and wean vent setting for possible extubation today. 3: s/p extubation now stable on 3L NC. Lethargic this am, will decreased Seroquel. Speech consult for swallow eval, continue enteral nutrition via NGT for now. Hypertensive throughout the night, Norvac added. Remains on heparin gtt for DVT, might need to transition to PO AC, will d/w CCM. Patient is stable for transfer to [facility] 05/20: Continue sepsis work up considering fever, aspiration precautions. Discussed with nursing staff will hold am seroquel. Continue tube feed. RENAL Function remains relatively stable, possible has peaked. 05/21: Patient seen and examined, resting but still with mild increase wob, CXR concerning with right lobar infiltrate, continue antibiotics, will give kayxalate in addition due to hyperkalemia, Will discuss with ID due to rising luekocytosis possible worsening sepsis. 05/22: Patient remains on BIPAP, still sedated appearing, cxr concerning for possible aspiration, unfortunately still worsening renal status. Will continue abx and continue collaboration with pulmonary team to ensure no over sedation. Continue abx, will add kayaxlate 05/23: Patient noted to have severe anemia today, will initiate GI work up and also Hemolysis work up. Will discuss with Vascular about possible IVC filter placement. Continue BIPAP, goal is to see if we can avert re-intubation. Transfuse 1 UNIT PRBC, Will discuss with Pulmonary about holding Eliquis for now. Renal failure still ongoing. 05/24: Patient had a positive occult and was anemic again today and received PRBC. GI was consulted. Repeat Dopplers are negative for DVT vascular recommends a CT/SQ heparin if tolerated and nephrology would like to increase IV fluids per FeNa results. Decrease metoprolol, seroquel and librium. surgery consult for trach/peg 05/25: RT decreased FiO2. GI signed off, Cr slightly improved, Anemia improved. Tmax 101.4 noted, abx per ID. 05/26: Patient had a temperature spike and was recultured, no plan today changes made as patient continues to breathe over the vent, one time dose of fent patch, repeat dopllar in 1 week per [facility], miralax q hs 05/27: Added vancomycin per ID, started CPAP trials, prophylactic heparin, IV fl uids stopped per ID. 05/28: No acute events reported overnight, T-max 100.6, slight improvement to B UN/creatinine. awaiting trach & PEG 05/29: Creatinine continues trending down, remains on minimal vent settings. CPAP as tolerated. 05/30: Patient remains lethargic, opened eyes and tracking this am. Librium will end tonight and decrease seroquel for now. PRN analgesics added for pain management. Patient remains with intermittent fevers, BLE doppler neg for DVT, recent cultures with NGTD, continue current IV abx per ID. LUE swelling noted, LUE doppler pending. Trach and PEG is now on hold, case management is trying to get in contact with a living relative for consent. Assessment and Plan #Neuro: Metabolic encephalopathy #Polysubstance Abuse -UDS positive for amphetamines -On [facility] protocol -Librium end tonight -Seroquel decreased -Monitor QTc -Avoid delirium -PRN analgesia added for pain management -We will need cessation counseling when appropriate #Cardio:Heart failure reduced EF #Cardiomyopathy #Paroxysmal atrial fibrillation #S/p hypertensive emergency, h/o HTN -Continue beta-sylvia, aspirin, statin, hydral, titrate as needed -Cardiology consulted, appreciate recommendations -Echo 05/04/2021-EF 35 to 40%. Moderate concentric LVH. Moderate global hypokinesis of left ventricle. Mild mitral regurgitation. Mild pulmonary hypertension. -Echocardiogram reviewed (08/27/2020): LVEF is 50 to 55%. Mild to moderate concentric LVF. Severe diastolic dysfunction is present (restrictive filling). Right ventricle is mildly hypokinetic. RVSP is 48 mmHg. No valvular abnormalities. -S/p Cardizem drip for atrial fibrillation -Blood pressure monitoring per protocol #Respiratory:Acute Hypoxic respiratory failure -S/p X3 intubation -CCM consulted, appreciate recommendations -Intubated on 05/05 in the ED and extubated 05/13, Re-intubated on 05/16 and Extubated on 05/18 -Reintubated 05/23 -Vent setting: PRVC-25%,8,16,450 -CCM consulted, appreciate recommendations -VAP bundle addressed -Aspiration precaution HOB above 30 -Daily SBT and SAT trials as tolerated -PRN ABG and CXR per CCM -Continue SPO2 monitoring for SPO2 goal above 92% -Need to be trach and PEG- Currently on hold, trying to get in contact with a living relative for consent #Acute kidney injury likely secondary to vasomotor nephropathy -Nephrology consulted, appreciate recommendations -Renal ultrasound completed: 1.7 hyper echoic mass within the left upper pole, continue to monitor and follow-up with CT once stable -Strict intake and output -Avoid nephrotoxic medications; Renally dose medications -Monitor and replace electrolytes as needed -Trend BMP #Transaminitis, h/o hepatitis C -LFT with some mild improvement -Continue to trend LFTs #ID:Severe COVID-19 pneumonia, Enterobacter aerogenes PNA, s/p Enterococcus faecalis UTI -Infectious disease consulted, appreciate recommendations -COVID-19 PCR positive -s/p droplet/precautions for 21 days -Not a candidate for remdesivir given acute kidney injury -s/p Dexamethasone for 10 days -Anticoagulation per hospital protocol -Trend COVID-19 from 2 markers (ferritin, D-dimer, CRP, LDH) -05/09 urine culture with Enterococcus faecalis -05/16 tracheal aspirate with Enterobacter aerogenes -per ID Due to persistent fevers switched cefepime to IV ertapenem renally adjusted 05/24 -GC negative -f/u culture data -re-cultured 05/26 #Heme: Anemia, Acute DVT (resolved) -Bilateral lower extremity Doppler ultrasound shows acute DVT -heparin gtt converted to DOAC but now d/c -vascular surgery consulted for possible IVC filter placement, appreciate recommendations -repeat doppler shows no DVT -subq heparin for prophylaxis -Pulmonary perfusion study showed low probability of pulmonary embolism -S/p 3 unit PRBC -Trend CBC -Transfuse for hemoglobin less than 7 The high probability of a clinically significant, sudden or life threatening deterioration of the [cardio/resp] system(s) required my full and direct attent ion, intervention and personal management. The aggregate critical care time was [60] minutes. This time is in addition to time spent performing reported procedures but includes the following: [x] Data Review and interpretation [x] Patient assessment and monitoring of vital signs [x] Documentation [x] Medication orders and management Disposition Plan: ICU Total Time Spent with Patient (Minutes): 60 History Interval history: Patient seen and examined at the bedside. Remains intubated and lethargic, not on any sedation. Still with persistent fevers. Per RN DU ren noted, pending doppler. HUSSEIN overnight Hospitalist Physical - Constitutional Vitals: Temp Pulse Resp BP Pulse Ox 100.4 F H 69 21 150/98 99 05/30/21 08:51 05/30/21 09:00 05/30/21 09:00 05/30/21 09:00 05/30/21 09:00 General appearance: Present: no acute distress, other (Intubated) - EENT Eyes: Present: PERRL ENT: hearing intact - Respiratory Respiratory effort: normal Respiratory: bilateral: rhonchi - Cardiovascular Rhythm: regular Heart Sounds: Present: S1 & S2 - Extremities Extremities: no ischemia, pulses intact, pulses symmetrical Extremity abnormal: edema - Peripheral Assessment Left Upper Extremity Edema Type: Pitting Edema Degree: 2+ Capillary Refill: < 3 seconds Skin Temperature: Warm Generalized Edema Type: Non-pitting Edema Degree: 2+ Capillary Refill: < 3 seconds Skin Temperature: Warm Peripheral Pulses: within normal limits - Abdominal General gastrointestinal: soft, non-distended, normal bowel sounds - Integumentary Integumentary: Present: warm, dry - Psychiatric Psychiatric: other (BRISA) - Neurologic Neurologic: moves all extremities, other (Lethargic, open eyes and tracking. Not following commands) - Allied Health Allied health notes reviewed: nursing, case management HEART Score - HEART Score EKG: Non-specific Age: 45-65 Risk factors: 1-2 risk factors Troponin: Troponin T 0.400 ng/mL (0.00-0.029) H* D 05/16/21 18:40 Troponin: 1-3x normal limit - Critical Actions Critical Actions: 4-6 pts:12-16.6% risk of adverse cardiac event. Should be admitted Results - Labs CBC & Chem 7: 05/29/21 11:16 05/30/21 05:07 Labs: Laboratory Last Values WBC 12.2 K/mm3 (4.5-11.0) H 05/29/21 11:16 RBC 2.94 M/mm3 (3.65-5.03) L 05/29/21 11:16 Hgb 8.7 gm/dl (11.8-15.2) L 05/29/21 11:16 Hct 27.2 % (35.5-45.6) L 05/29/21 11:16 MCV 92 fl (84-94) 05/29/21 11:16 MCH 30 pg (28-32) 05/29/21 11:16 MCHC 32 % (32-34) 05/29/21 11:16 RDW 15.8 % (13.2-15.2) H 05/29/21 11:16 Plt Count 388 K/mm3 (140-440) 05/29/21 11:16 Lymph % (Auto) College Archivist 05/16/21 10:21 [place] % (Auto) College Archivist 05/16/21 10:21 Eos % (Auto) College Archivist 05/16/21 10:21 Baso % (Auto) [employer] Archivist 05/16/21 10:21 Lymph # (Auto) College Archivist 05/16/21 10:21 [place] # (Auto) College Archivist 05/16/21 10:21 Eos # (Auto) College Archivist 05/16/21 10:21 Baso # (Auto) College Archivist 05/16/21 10:21 Add Manual Diff Complete 05/28/21 04:04 Total Counted 100 05/28/21 04:04 Seg Neutrophils % [employer] Archivist 05/16/21 10:21 Seg Neuts % (Manual) 93.0 % (40.0-70.0) H 05/28/21 04:04 Band Neutrophils % 1.0 % 05/28/21 04:04 Lymphocytes % (Manual) 2.0 % (13.4-35.0) L 05/28/21 04:04 Reactive Lymphs % (Man) 0 % 05/28/21 04:04 Monocytes % (Manual) 4.0 % (0.0-7.3) 05/28/21 04:04 Eosinophils % (Manual) 0 % (0.0-4.3) 05/28/21 04:04 Basophils % (Manual) 0 % (0.0-1.8) 05/28/21 04:04 Metamyelocytes % 0 % 05/28/21 04:04 Myelocytes % 0 % 05/28/21 04:04 Promyelocytes % 0 % 05/28/21 04:04 Blast Cells % 0 % 05/28/21 04:04 Nucleated RBC % Not Reportable 05/28/21 04:04 Seg Neutrophils # College Archivist 05/16/21 10:21 Seg Neutrophils # Man 13.1 K/mm3 (1.8-7.7) H 05/28/21 04:04 Band Neutrophils # 0.1 K/mm3 05/28/21 04:04 Lymphocytes # (Manual) 0.3 K/mm3 (1.2-5.4) L 05/28/21 04:04 Abs React Lymphs (Man) 0.0 K/mm3 05/28/21 04:04 Monocytes # (Manual) 0.6 K/mm3 (0.0-0.8) 05/28/21 04:04 Eosinophils # (Manual) 0.0 K/mm3 (0.0-0.4) 05/28/21 04:04 Basophils # (Manual) 0.0 K/mm3 (0.0-0.1) 05/28/21 04:04 Metamyelocytes # 0.0 K/mm3 05/28/21 04:04 Myelocytes # 0.0 K/mm3 05/28/21 04:04 Promyelocytes # 0.0 K/mm3 05/28/21 04:04 Blast Cells # 0.0 K/mm3 05/28/21 04:04 WBC Morphology Not Reportable 05/28/21 04:04 Hypersegmented Neuts Not Reportable 05/28/21 04:04 Hyposegmented Neuts Not Reportable 05/28/21 04:04 Hypogranular Neuts Not Reportable 05/28/21 04:04 Smudge Cells Not Reportable 05/28/21 04:04 Toxic Granulation Not Reportable 05/28/21 04:04 Toxic Vacuolation Not Reportable 05/28/21 04:04 Dohle Bodies Not Reportable 05/28/21 04:04 Pelger-Huet Anomaly Not Reportable 05/28/21 04:04 Jesse Rods Not Reportable 05/28/21 04:04 Platelet Estimate Consistent w auto 05/28/21 04:04 Clumped Platelets Not Reportable 05/28/21 04:04 Plt Clumps, EDTA Not Reportable 05/28/21 04:04 Large Platelets Not Reportable 05/28/21 04:04 Giant Platelets Not Reportable 05/28/21 04:04 Platelet Satelliting Not Reportable 05/28/21 04:04 Plt Morphology Comment Not Reportable 05/28/21 04:04 RBC Morphology Not Reportable 05/28/21 04:04 Dimorphic RBCs Not Reportable 05/28/21 04:04 Polychromasia Not Reportable 05/28/21 04:04 Hypochromasia Not Reportable 05/28/21 04:04 Poikilocytosis Not Reportable 05/28/21 04:04 Anisocytosis 1+ 05/28/21 04:04 Microcytosis Not Reportable 05/28/21 04:04 Macrocytosis Not Reportable 05/28/21 04:04 Spherocytes Not Reportable 05/28/21 04:04 Pappenheimer Bodies Not Reportable 05/28/21 04:04 Sickle Cells Not Reportable 05/28/21 04:04 Target Cells Not Reportable 05/28/21 04:04 Tear Drop Cells Not Reportable 05/28/21 04:04 Ovalocytes Not Reportable 05/28/21 04:04 Helmet Cells Not Reportable 05/28/21 04:04 [place] Bodies Not Reportable 05/28/21 04:04 Milner Rings Not Reportable 05/28/21 04:04 Alec Cells Not Reportable 05/28/21 04:04 Bite Cells Not Reportable 05/28/21 04:04 Crenated Cell Not Reportable 05/28/21 04:04 Elliptocytes Not Reportable 05/28/21 04:04 Acanthocytes (Spur) Not Reportable 05/28/21 04:04 Rouleaux Not Reportable 05/28/21 04:04 Hemoglobin C Crystals Not Reportable 05/28/21 04:04 Schistocytes Not Reportable 05/28/21 04:04 Malaria parasites Not Reportable 05/28/21 04:04 Tomi Bodies Not Reportable 05/28/21 04:04 Haptoglobin 254 mg/dL (43-212) H 05/23/21 18:54 Hem Pathologist Commnt No 05/28/21 04:04 PT 14.9 Sec. (12.2-14.9) 05/25/21 04:25 INR 1.05 (0.87-1.13) 05/25/21 04:25 APTT 72.5 Sec. (24.2-36.6) H* 05/19/21 19:36 D-Dimer 2730.61 ng/mlDDU (0-234) H 05/12/21 07:19 Heparin Anti-Xa Level 0.47 U.I./ml (0.3-0.7) 05/19/21 05:23 ABG pH 7.443 pH Units (7.350-7.450) 05/27/21 09:20 ABG pCO2 38.8 mm Hg 05/27/21 09:20 ABG pO2 115.2 mm Hg (80.0-90.0) H 05/27/21 09:20 ABG HCO3 25.9 mmol/L (20.0-26.0) 05/27/21 09:20 ABG O2 Saturation 98.3 % (95.0-99.0) 05/27/21 09:20 ABG O2 Content 12.5 (0.0-44) 05/27/21 09:20 ABG Base Excess 1.7 mmol/L (-2.0-3.0) 05/27/21 09:20 ABG Hemoglobin 9.2 gm/dl (14.0-18.0) L 05/27/21 09:20 ABG Carboxyhemoglobin 2.2 % (0.0-5.0) 05/27/21 09:20 ABG Methemoglobin 0.7 % (0.0-1.5) 05/27/21 09:20 Oxyhemoglobin 95.4 % (95.0-99.0) 05/27/21 09:20 FiO2 30 % 05/27/21 09:20 Sodium 140 mmol/L (137-145) 05/30/21 05:07 Potassium 4.0 mmol/L (3.6-5.0) 05/30/21 05:07 Chloride 105.4 mmol/L (98-107) 05/30/21 05:07 Carbon Dioxide 24 mmol/L (22-30) 05/30/21 05:07 Anion Gap 15 mmol/L 05/30/21 05:07 BUN 55 mg/dL (9-20) H 05/30/21 05:07 Creatinine 1.5 mg/dL (0.8-1.3) H 05/30/21 05:07 Estimated GFR 48 ml/min 05/30/21 05:07 BUN/Creatinine Ratio 37 % 05/30/21 05:07 Glucose 129 mg/dL (75-100) H 05/30/21 05:07 POC Glucose 113 mg/dL (70-105) H 05/30/21 05:11 Lactic Acid 0.90 mmol/L (0.7-2.0) 05/20/21 09:17 Calcium 8.2 mg/dL (8.4-10.2) L 05/30/21 05:07 Phosphorus 3.20 mg/dL (2.5-4.5) 05/30/21 05:07 Magnesium 2.10 mg/dL (1.7-2.3) 05/30/21 05:07 Iron 10 ug/dL (49-181) L 05/23/21 Unknown TIBC 151 mcg/dL (250-450) L 05/23/21 Unknown Ferritin 640.2 ng/mL (30.0-300.0) H 05/12/21 07:19 Total Bilirubin 0.50 mg/dL (0.1-1.2) 05/24/21 04:11 AST 152 units/L (5-40) H 05/24/21 04:11 ALT 125 units/L (7-56) H 05/24/21 04:11 Alkaline Phosphatase 72 units/L (35-129) 05/24/21 04:11 Lactate Dehydrogenase 311 units/L (91-180) H 05/23/21 Unknown Total Creatine Kinase 406 units/L (55-170) H 05/04/21 08:42 Troponin T 0.400 ng/mL (0.00-0.029) H* D 05/16/21 18:40 C-Reactive Protein 13.20 mg/dL (0.00-1.30) H 05/28/21 04:04 Total Protein 6.6 g/dL (6.3-8.2) 05/24/21 04:11 Albumin 2.5 g/dL (3.9-5) L 05/24/21 04:11 Albumin/Globulin Ratio 0.6 % 05/24/21 04:11 Triglycerides 144 mg/dL (2-149) 05/10/21 04:57 Cholesterol 140 mg/dL (50-199) 05/04/21 07:25 LDL Cholesterol Direct 89 mg/dL (50-130) 05/04/21 07:25 HDL Cholesterol 48 mg/dL (40-59) 05/04/21 07:25 Cholesterol/HDL Ratio 2.91 % 05/04/21 07:25 Procalcitonin 0.63 ng/mL (<0.15) 05/09/21 15:53 Urine Color Yellow (Yellow) 05/26/21 09:50 Urine Turbidity Turbid (Clear) 05/26/21 09:50 Urine pH 5.0 (5.0-7.0) 05/26/21 09:50 Ur Specific [place] 1.014 (1.003-1.030) 05/26/21 09:50 Urine Protein 30 mg/dl mg/dL (Negative) 05/26/21 09:50 Urine Glucose (UA) Neg mg/dL (Negative) 05/26/21 09:50 Urine Ketones Neg mg/dL (Negative) 05/26/21 09:50 Urine Blood Sm (Negative) 05/26/21 09:50 Urine Nitrite Neg (Negative) 05/26/21 09:50 Urine Bilirubin Neg (Negative) 05/26/21 09:50 Urine Urobilinogen < 2.0 mg/dL (<2.0) 05/26/21 09:50 Ur Leukocyte Esterase Tr (Negative) 05/26/21 09:50 Urine WBC (Auto) 38.0 /HPF (0.0-6.0) H 05/26/21 09:50 Urine RBC (Auto) 5.0 /HPF (0.0-6.0) 05/26/21 09:50 U Epithel Cells (Auto) 1.0 /HPF (0-13.0) 05/23/21 16:30 Urine Bacteria (Auto) 1+ /HPF (Negative) 05/23/21 16:30 Uric Acid Crystals Few 05/09/21 00:40 Triple Phos Crystals 2+ 05/09/21 13:22 Amorphous Crystals 3+ 05/26/21 09:50 Granular Casts 20 /LPF 05/26/21 09:50 Urine Mucus Few /HPF 05/23/21 16:30 Urine Creatinine 100.1 mg/dL (0.1-20.0) H 05/23/21 16:30 Protein/Creatinin Ratio 0.42 05/10/21 11:03 Urine Sodium 25 mmol/L 05/23/21 16:30 Fraction Sodium Excret 0.3 05/23/21 16:30 Urine Total Protein 42 mg/dL (5-11.8) H 05/10/21 11:03 Vancomycin Trough 15.4 ug/mL (5.0-20.0) 05/29/21 14:15 Urine Opiates Screen Negative 05/04/21 Unknown Urine Methadone Screen Negative 05/04/21 Unknown Ur Barbiturates Screen Negative 05/04/21 Unknown Ur Phencyclidine Scrn Negative 05/04/21 Unknown Ur Amphetamines Screen Positive 05/04/21 Unknown U Benzodiazepines Scrn Negative 05/04/21 Unknown Urine Cocaine Screen Negative 05/04/21 Unknown U Marijuana (THC) Screen Negative 05/04/21 Unknown Drugs of Abuse Note Disclamer 05/04/21 Unknown Immunofix Electrophor see below 05/05/21 03:40 AUDRA Screen Negative (Negative) 05/05/21 03:40 Proteinase 3 (PR3) Ab <1.0 AI (<1.0) 05/05/21 03:40 Myeloperoxidase Ab <1.0 AI (<1.0) 05/05/21 03:40 Complement C3 72 mg/dL (82-185) L 05/05/21 03:40 Complement C4 17 mg/dL (15-53) 05/05/21 03:40 Coronavirus (PCR) Positive (Negative) A 05/05/21 08:30 Hepatitis A IgM Ab Non-reactive (NonReactive) 05/05/21 03:40 Hep Bs Antigen Non-reactive (Negative) 05/05/21 03:40 Hep B Core IgM Ab Non-reactive (NonReactive) 05/05/21 03:40 Hepatitis C Antibody Reactive (NonReactive) A 05/05/21 03:40 Blood Type O POSITIVE 05/23/21 07:12 Antibody Screen Negative 05/23/21 07:12 Crossmatch See Detail 05/23/21 07:12 Microbiology: Microbiology 05/26/21 12:59 Peripheral/Venous Blood Culture - Preliminary NO GROWTH AFTER 72 HOURS 05/26/21 12:59 Peripheral/Venous Blood Culture - Preliminary NO GROWTH AFTER 72 HOURS 05/26/21 09:50 Tracheal Aspirate Sputum Culture - Final [place]/IV: Voiding Method Indwelling Catheter Active Medications - Current Medications Current Medications: Generic Name Dose Route Start Last Admin Trade Name Freq PRN Reason Stop Dose Admin Acetaminophen 650 mg 05/04/21 12:34 05/30/21 09:30 Acetaminophen 325 Mg Tab PO 650 mg Q4H PRN Administration Pain MILD(1-3)/Fever >100.5/MARIA Acetaminophen 650 mg 05/07/21 16:00 05/11/21 16:25 Acetaminophen 650 Mg Rect Supp ME 650 mg Q4H PRN Administration Pain, Mild (1-3) Atorvastatin Calcium 40 mg 05/09/21 22:00 05/29/21 21:00 Atorvastatin 40 Mg Tab FEEDTUBE 40 mg QHS RISHI Administration Chlordiazepoxide HCl 25 mg 05/27/21 20:00 05/30/21 08:20 Chlordiazepoxide 25 Mg Cap PO 05/30/21 19:59 25 mg TID RISHI Administration Dextrose 0 ml 05/09/21 10:49 05/14/21 06:55 Dextrose 10% *Hypoglycemia IV 250 ml PRN PRN Administration Hypoglycemia Fentanyl 50 mcg 05/23/21 15:00 Fentanyl 100 Mcg/2 Ml Inj IV Q10MIN PRN ANALGESIA Haloperidol Lactate 5 mg 05/09/21 18:32 05/18/21 19:52 Haloperidol Lactate 5 Mg/1 Ml Inj IV 5 mg Q6H PRN Administration Agitation Heparin Sodium (Porcine) 5,000 unit 05/27/21 22:00 05/30/21 09:29 Heparin 5,000 Unit/1 Ml Vial SUB-Q 5,000 unit Q12HR RISHI Administration Hydralazine HCl 50 mg 05/04/21 14:00 05/30/21 05:17 Hydralazine 25 Mg Tab PO 50 mg Q8HR RISHI Administration Hydrophilic Ointment 1 applic 05/05/21 15:21 Lip Therapy Vaseline TP Q2HR PRN Dry Lips Fentanyl Citrate 2,000 mcg in 100 mls @ 4.082 mls/hr 05/23/21 15:00 Fentanyl Drip Premix IV TITR RISHI Protocol 1 MCG/KG/HR Ertapenem 1 gm/ Sodium 50 mls @ 100 mls/hr 05/26/21 14:00 05/30/21 09:30 Chloride IV 100 mls/hr QDAY RISHI Administration Insulin Human Lispro 0 unit 05/10/21 09:40 05/12/21 16:49 Insulin Lispro 100 Unit/Ml SUB-Q 2 unit Q6HR PRN Administration Hyperglycemia Protocol Labetalol HCl 10 mg 05/15/21 10:24 05/25/21 08:15 Labetalol 20 Mg/4 Ml Inj IV 10 mg Q4H PRN Administration sbp> 160. Lansoprazole 30 mg 05/26/21 10:00 05/30/21 09:29 Lansoprazole 30 Mg Solutab FEEDTUBE 30 mg BID RISHI Administration Metoprolol Tartrate 50 mg 05/26/21 08:00 05/30/21 08:20 Metoprolol Tartrate 25 Mg Tab FEEDTUBE 50 mg TID RISHI Administration Multi-Ingred Cream/Lotion/Oil/Oint 1 applic 05/05/21 15:21 Mineral Oil/Petrolatum, White Ophth Oint 3.5 Gm OU Q4HR PRN Dry Eye(s) Ondansetron HCl 4 mg 05/04/21 12:34 05/04/21 21:51 Ondansetron 4 Mg/2 Ml Inj IV 4 mg Q8H PRN Administration Nausea And Vomiting Polyethylene Glycol 17 gm 05/26/21 22:00 05/30/21 00:13 Polyethylene Glycol 3350 17 Gm Powder PO Not Given QHS RISHI Quetiapine Fumarate 100 mg 05/25/21 22:00 05/29/21 21:00 Quetiapine 100 Mg Tab PO 100 mg BID RISHI Administration Senna/Docusate Sodium 1 tab 05/05/21 22:00 05/30/21 00:12 Sennosides/Docusate Sodium 8.6/50 Mg Tab FEEDTUBE Not Given BID RISHI Sodium Chloride 10 ml 05/04/21 22:00 05/30/21 09:30 Sodium Chloride 0.9% 10 Ml Flush Syringe IV 10 ml BID RISHI Administration Sodium Chloride 10 ml 05/04/21 12:34 05/06/21 13:59 Sodium Chloride 0.9% 10 Ml Flush Syringe IV 10 ml PRN PRN Administration LINE FLUSH Sodium Chloride 10 ml 05/09/21 09:46 Sodium Chloride 0.9% 50 Ml Ivpb IV PRN PRN FLUSH Nutrition/Malnutrition Assess - Dietary Evaluation Nutrition/Malnutrition Findings: Nutrition Notes Start: 05/05/21 16:15 Freq: Status: Active Protocol: Document 05/27/21 15:02 ROSAURA (Rec: 05/27/21 15:07 ROSAURA [id number]) Nutrition Notes Initial or Follow up Reassessment Current Diagnosis Acute Kidney Injury, Hypertension,Heart Failure, Respiratory Failure Other Pertinent Diagnosis Severe COVID-19 pneu, metabolic encephalopathy, polysubstance dependence Current Diet TF - Nepro at 45ml/hr Labs/Tests BUN 56 Cr 1.8 Pertinent Medications Miralax Height 5 ft 7 in Weight 81.647 kg [place] Body Weight (kg) 67.27 BMI 28.1 Weight Status Overweight Subjective/Other Information Pt re-intubated on 05/23; rectal tube in place as well. Trach /PEG placement pending; awaiting family consent. Per RN, pt tolerating TF at goal rate. Percent of energy/protein needs met: 100% energy 89% pro Burn Absent Trauma Absent #1 Nutrition Diagnosis Inadequate oral intake Diagnosis Progress(for reassessment Continues documentation) Is patient on ventilator? Yes Is Patient Ambulatory and/or Out of Bed No REE-([facility]-confined to bed) [phone] Calculation Used for Recommendations [facility] Additional Notes Pro needs 1.2-2g/k-163g/ day Fluid needs 1ml/kcal Nutrition Intervention Nutrition Support: Continue Nepro at 45ml/hr with 200ml water flush q4h. Kcal 1,944 Protein (gm) 87 Carbohydrates (gm) 174 Fat (gm) 104 Fluid (mL) 785 Fiber (gm) 14 Goal #1 TF tolerance Goal #2 TF to meet at least 75% energy and pro needs Follow-Up By: 06/03/21 Additional Comments F/U: vent status, stable TF, trach/PEG placement
[2021-05-30] MEDS ORDERED: oxyCODONE 5 MG TAB PO PRN (11:00)
--- NOTE | 2021-05-30 11:30 | Progress Note ---
Assessment and Plan Acute hypoxic resp failure on MVS COVID positive NSTEMI Acute kidney injury Cardiomyopathy EF 35-40% History of hepatitis C Elevated D-dimer. Low probability for PE seen on VQ scan Tobacco abuse Polysubstance abusepatient with positive methamphetamines and has a history of cocaine use Anemia Failed extubation x3 now awaiting trach placement On going fevers, ID following - VAP bundle addressed, aspiration precautions - titrate supplemental oxygen to keep SpO2 88-90% - Bronchodilators with pulmonary hygiene per RT - continue accuchecks with glycemic control per SSI (While critically ill target blood glucose of 140-180 mg/dL; avoid hypoglycemia) - avoid nephrotoxins, renally dose all medications - avoid benzodiazepines, reduce the possibility of delirium - prn analgesia per pain score - Maintenance of sleep-wake cycle, avoid delirium - Stress ulcer prophylaxis -Therapeutic anticoagulation- heparin infusion - mobility, off loading and frequent turning per facility protocol for pressure ulcer prevention - Monitor hemodynamics closely -Supportive transfusions as clinically indicated to keep HgB >7g/dL - continue other care per attending / other consultants CONDITION: CRITICAL PROGNOSIS: GUARDED CODE STATUS: FULL CODE The high probability of a clinically significant, sudden or life-threatening deterioration of the [respiratory, cardiovascular & neurologic ] system(s) required my full and direct attention, intervention and personal management. The aggregate critical care time was [35] minutes without overlap. Time includes spent on; [x] Data Review and interpretation [x] Patient assessment and monitoring of vital signs [x] Documentation [x] Medication orders and management Subjective Date of service: 05/30/21 Principal diagnosis: AHRF; COVID-19 infection; NSTEMI; YE; HFrEF (35-40%); Polysubstance abuse Interval history: Follow up for acute hypoxemic resp failure on MVS, COVID infection;YE; Hypertension Seen and examined. Vitals, labs, medications, chart and imaging reviewed. MVS: +6/FIO2 40% Discussed with respiratory and nursing care staff. On going fevers, waking up slowly since Seroquel and Librium were stopped. Awaiting neuro-imaging. Has Merino catheter for urinary retention . Objective Vital Signs - 12hr 05/29/21 05/30/21 05/30/21 23:43 00:00 01:00 Temperature 99.9 F H Pulse Rate 68 70 Pulse Rate [ 68 From Monitor] Respiratory 26 H 37 H Rate Blood Pressure 106/70 119/79 O2 Sat by Pulse 99 99 Oximetry 05/30/21 05/30/21 05/30/21 02:00 03:00 03:10 Temperature 100.2 F H Pulse Rate 77 76 Pulse Rate [ From Monitor] Respiratory 22 21 Rate Blood Pressure 121/85 124/86 O2 Sat by Pulse 99 98 Oximetry 05/30/21 05/30/21 05/30/21 04:00 04:31 05:00 Temperature Pulse Rate 71 77 79 Pulse Rate [ 71 From Monitor] Respiratory 32 H 23 Rate Blood Pressure 137/90 134/92 130/92 O2 Sat by Pulse 99 99 98 Oximetry 05/30/21 05/30/21 05/30/21 05:17 06:00 07:00 Temperature Pulse Rate 78 80 81 Pulse Rate [ From Monitor] Respiratory 22 24 Rate Blood Pressure 130/92 139/92 142/90 O2 Sat by Pulse 98 98 Oximetry 05/30/21 05/30/21 05/30/21 07:33 08:00 08:20 Temperature Pulse Rate 80 80 79 Pulse Rate [ 80 From Monitor] Respiratory 18 Rate Blood Pressure 131/88 141/93 141/93 O2 Sat by Pulse 99 99 Oximetry 05/30/21 05/30/21 08:51 09:00 Temperature 100.4 F H Pulse Rate 70 Pulse Rate [ From Monitor] Respiratory 50 H Rate Blood Pressure 146/94 O2 Sat by Pulse 96 Oximetry Constitutional: appears uncomfortable, other (middle aged male with mildly increased respiratory effort at rest) Eyes: non-icteric ENT: oropharynx moist, other (ETT 24 cm ELIZABET) Neck: supple, no lymphadenopathy, no JVD Effort: mildly labored Ascultation: Bilateral: clear, diminished breath sounds, rhonchi Percussion: Bilateral: not dull Cardiovascular: regular rate and rhythm, other (S1,S2) Gastrointestinal: normoactive bowel sounds, soft, non-tender, non-distended Integumentary: normal Extremities: no cyanosis, no edema, pulses normal Neurologic: non-focal exam (grossly), pupils equal and round, unable to assess (sedated) Psychiatric: other CBC and BMP: 05/29/21 11:16 05/30/21 05:07 ABG, PT/INR, D-dimer: ABG ABG pH 7.443 pH Units (7.350-7.450) 05/27/21 09:20 ABG pCO2 38.8 mm Hg 05/27/21 09:20 ABG pO2 115.2 mm Hg (80.0-90.0) H 05/27/21 09:20 ABG O2 Saturation 98.3 % (95.0-99.0) 05/27/21 09:20 PT/INR, D-dimer PT 14.9 Sec. (12.2-14.9) 05/25/21 04:25 INR 1.05 (0.87-1.13) 05/25/21 04:25 D-Dimer 2730.61 ng/mlDDU (0-234) H 05/12/21 07:19 Abnormal lab findings: Abnormal Labs 05/04/21 05/04/21 05/04/21 07:25 07:25 07:25 WBC 12.9 H RBC 3.04 L Hgb 9.5 L Hct 28.4 L MCV MCHC RDW 15.4 H Lymph % (Auto) 11.4 L [place] % (Auto) 10.1 H Lymph # (Auto) [place] # (Auto) 1.3 H Seg Neutrophils % 78.0 H Seg Neuts % (Manual) Lymphocytes % (Manual) Monocytes % (Manual) Seg Neutrophils # 10.0 H Seg Neutrophils # Man Lymphocytes # (Manual) Monocytes # (Manual) Haptoglobin PT 15.1 H APTT D-Dimer Heparin Anti-Xa Level ABG pH ABG pO2 ABG HCO3 ABG O2 Saturation ABG Base Excess ABG Hemoglobin Oxyhemoglobin Sodium 135 L Potassium Chloride Carbon Dioxide BUN 65 H Creatinine 3.4 H Glucose 118 H POC Glucose Calcium Phosphorus Magnesium Iron TIBC Ferritin Total Bilirubin 1.50 H AST 519 H ALT 475 H Lactate Dehydrogenase Total Creatine Kinase Troponin T 1.300 H* C-Reactive Protein Albumin Urine WBC (Auto) Urine Creatinine Urine Total Protein Complement C3 Coronavirus (PCR) Hepatitis C Antibody Crossmatch 05/04/21 05/04/21 05/04/21 07:25 08:42 08:42 WBC RBC Hgb Hct MCV MCHC RDW Lymph % (Auto) [place] % (Auto) Lymph # (Auto) [place] # (Auto) Seg Neutrophils % Seg Neuts % (Manual) Lymphocytes % (Manual) Monocytes % (Manual) Seg Neutrophils # Seg Neutrophils # Man Lymphocytes # (Manual) Monocytes # (Manual) Haptoglobin PT APTT D-Dimer 579.49 H Heparin Anti-Xa Level ABG pH ABG pO2 ABG HCO3 ABG O2 Saturation ABG Base Excess ABG Hemoglobin Oxyhemoglobin Sodium Potassium Chloride Carbon Dioxide BUN Creatinine Glucose POC Glucose Calcium Phosphorus Magnesium Iron TIBC Ferritin Total Bilirubin AST ALT Lactate Dehydrogenase Total Creatine Kinase 406 H Troponin T 1.230 H* C-Reactive Protein Albumin Urine WBC (Auto) Urine Creatinine Urine Total Protein Complement C3 Coronavirus (PCR) Hepatitis C Antibody Crossmatch 05/04/21 05/04/21 05/04/21 10:13 13:34 18:14 WBC RBC Hgb 8.8 L Hct 26.6 L MCV MCHC RDW Lymph % (Auto) [place] % (Auto) Lymph # (Auto) [place] # (Auto) Seg Neutrophils % Seg Neuts % (Manual) Lymphocytes % (Manual) Monocytes % (Manual) Seg Neutrophils # Seg Neutrophils # Man Lymphocytes # (Manual) Monocytes # (Manual) Haptoglobin PT APTT D-Dimer Heparin Anti-Xa Level < 0.10 L ABG pH ABG pO2 ABG HCO3 ABG O2 Saturation ABG Base Excess ABG Hemoglobin Oxyhemoglobin Sodium Potassium Chloride Carbon Dioxide BUN Creatinine Glucose POC Glucose Calcium Phosphorus Magnesium Iron TIBC Ferritin Total Bilirubin AST ALT Lactate Dehydrogenase Total Creatine Kinase Troponin T 1.400 H* C-Reactive Protein Albumin Urine WBC (Auto) Urine Creatinine Urine Total Protein Complement C3 Coronavirus (PCR) Hepatitis C Antibody Crossmatch 05/05/21 05/05/21 05/05/21 03:40 03:40 03:40 WBC RBC Hgb Hct MCV MCHC RDW Lymph % (Auto) [place] % (Auto) Lymph # (Auto) [place] # (Auto) Seg Neutrophils % Seg Neuts % (Manual) Lymphocytes % (Manual) Monocytes % (Manual) Seg Neutrophils # Seg Neutrophils # Man Lymphocytes # (Manual) Monocytes # (Manual) Haptoglobin PT APTT D-Dimer Heparin Anti-Xa Level 0.11 L ABG pH ABG pO2 ABG HCO3 ABG O2 Saturation ABG Base Excess ABG Hemoglobin Oxyhemoglobin Sodium Potassium 3.3 L Chloride Carbon Dioxide BUN 59 H Creatinine 2.6 H Glucose 139 H POC Glucose Calcium Phosphorus Magnesium Iron TIBC Ferritin Total Bilirubin AST ALT Lactate Dehydrogenase Total Creatine Kinase Troponin T C-Reactive Protein Albumin Urine WBC (Auto) Urine Creatinine Urine Total Protein Complement C3 Coronavirus (PCR) Hepatitis C Antibody Reactive A Crossmatch 05/05/21 05/05/21 05/05/21 03:40 08:30 09:57 WBC RBC Hgb Hct MCV MCHC RDW Lymph % (Auto) [place] % (Auto) Lymph # (Auto) [place] # (Auto) Seg Neutrophils % Seg Neuts % (Manual) Lymphocytes % (Manual) Monocytes % (Manual) Seg Neutrophils # Seg Neutrophils # Man Lymphocytes # (Manual) Monocytes # (Manual) Haptoglobin PT APTT D-Dimer Heparin Anti-Xa Level ABG pH ABG pO2 ABG HCO3 ABG O2 Saturation ABG Base Excess ABG Hemoglobin Oxyhemoglobin Sodium Potassium Chloride Carbon Dioxide BUN Creatinine Glucose POC Glucose Calcium Phosphorus Magnesium Iron TIBC Ferritin Total Bilirubin AST ALT Lactate Dehydrogenase Total Creatine Kinase Troponin T C-Reactive Protein Albumin Urine WBC (Auto) Urine Creatinine 100.8 H Urine Total Protein Complement C3 72 L Coronavirus (PCR) Positive A Hepatitis C Antibody Crossmatch 05/05/21 05/05/21 05/05/21 11:28 17:00 19:51 WBC RBC Hgb Hct MCV MCHC RDW Lymph % (Auto) [place] % (Auto) Lymph # (Auto) [place] # (Auto) Seg Neutrophils % Seg Neuts % (Manual) Lymphocytes % (Manual) Monocytes % (Manual) Seg Neutrophils # Seg Neutrophils # Man Lymphocytes # (Manual) Monocytes # (Manual) Haptoglobin PT APTT D-Dimer Heparin Anti-Xa Level 0.10 L 0.22 L ABG pH 7.304 L ABG pO2 140.8 H ABG HCO3 ABG O2 Saturation ABG Base Excess -2.1 L ABG Hemoglobin 10.2 L Oxyhemoglobin Sodium Potassium Chloride Carbon Dioxide BUN Creatinine Glucose POC Glucose Calcium Phosphorus Magnesium Iron TIBC Ferritin Total Bilirubin AST ALT Lactate Dehydrogenase Total Creatine Kinase Troponin T C-Reactive Protein Albumin Urine WBC (Auto) Urine Creatinine Urine Total Protein Complement C3 Coronavirus (PCR) Hepatitis C Antibody Crossmatch 05/06/21 05/06/21 05/06/21 03:47 06:15 17:53 WBC RBC Hgb 9.0 L Hct 27.8 L MCV MCHC RDW Lymph % (Auto) [place] % (Auto) Lymph # (Auto) [place] # (Auto) Seg Neutrophils % Seg Neuts % (Manual) Lymphocytes % (Manual) Monocytes % (Manual) Seg Neutrophils # Seg Neutrophils # Man Lymphocytes # (Manual) Monocytes # (Manual) Haptoglobin PT APTT D-Dimer Heparin Anti-Xa Level 0.10 L ABG pH ABG pO2 143.5 H ABG HCO3 ABG O2 Saturation ABG Base Excess -2.4 L ABG Hemoglobin 6.9 L Oxyhemoglobin Sodium Potassium Chloride Carbon Dioxide BUN Creatinine Glucose POC Glucose Calcium Phosphorus Magnesium Iron TIBC Ferritin Total Bilirubin AST ALT Lactate Dehydrogenase Total Creatine Kinase Troponin T C-Reactive Protein Albumin Urine WBC (Auto) Urine Creatinine Urine Total Protein Complement C3 Coronavirus (PCR) Hepatitis C Antibody Crossmatch 05/07/21 05/07/21 05/07/21 00:07 03:22 03:45 WBC RBC Hgb Hct MCV MCHC RDW Lymph % (Auto) [place] % (Auto) Lymph # (Auto) [place] # (Auto) Seg Neutrophils % Seg Neuts % (Manual) Lymphocytes % (Manual) Monocytes % (Manual) Seg Neutrophils # Seg Neutrophils # Man Lymphocytes # (Manual) Monocytes # (Manual) Haptoglobin PT APTT D-Dimer Heparin Anti-Xa Level < 0.10 L ABG pH ABG pO2 104.3 H ABG HCO3 ABG O2 Saturation ABG Base Excess -2.6 L ABG Hemoglobin 9.1 L Oxyhemoglobin Sodium Potassium Chloride 107.1 H Carbon Dioxide 20 L BUN 56 H Creatinine 2.9 H Glucose POC Glucose Calcium Phosphorus Magnesium Iron TIBC Ferritin Total Bilirubin AST ALT Lactate Dehydrogenase Total Creatine Kinase Troponin T C-Reactive Protein Albumin Urine WBC (Auto) Urine Creatinine Urine Total Protein Complement C3 Coronavirus (PCR) Hepatitis C Antibody Crossmatch 05/07/21 05/07/21 05/07/21 07:44 16:28 22:41 WBC RBC Hgb Hct MCV MCHC RDW Lymph % (Auto) [place] % (Auto) Lymph # (Auto) [place] # (Auto) Seg Neutrophils % Seg Neuts % (Manual) Lymphocytes % (Manual) Monocytes % (Manual) Seg Neutrophils # Seg Neutrophils # Man Lymphocytes # (Manual) Monocytes # (Manual) Haptoglobin PT APTT D-Dimer Heparin Anti-Xa Level < 0.10 L 0.10 L < 0.10 L ABG pH ABG pO2 ABG HCO3 ABG O2 Saturation ABG Base Excess ABG Hemoglobin Oxyhemoglobin Sodium Potassium Chloride Carbon Dioxide BUN Creatinine Glucose POC Glucose Calcium Phosphorus Magnesium Iron TIBC Ferritin Total Bilirubin AST ALT Lactate Dehydrogenase Total Creatine Kinase Troponin T C-Reactive Protein Albumin Urine WBC (Auto) Urine Creatinine Urine Total Protein Complement C3 Coronavirus (PCR) Hepatitis C Antibody Crossmatch 05/08/21 05/08/21 05/08/21 03:25 04:34 07:30 WBC 12.4 H RBC 3.02 L Hgb 9.5 L Hct 29.2 L MCV 97 H MCHC RDW 16.7 H Lymph % (Auto) 8.1 L [place] % (Auto) 11.0 H Lymph # (Auto) 1.0 L [place] # (Auto) 1.4 H Seg Neutrophils % 80.1 H Seg Neuts % (Manual) Lymphocytes % (Manual) Monocytes % (Manual) Seg Neutrophils # 9.9 H Seg Neutrophils # Man Lymphocytes # (Manual) Monocytes # (Manual) Haptoglobin PT APTT D-Dimer Heparin Anti-Xa Level ABG pH ABG pO2 139.0 H ABG HCO3 ABG O2 Saturation ABG Base Excess ABG Hemoglobin 8.8 L Oxyhemoglobin Sodium Potassium Chloride 110.5 H Carbon Dioxide BUN 59 H Creatinine 2.8 H Glucose 103 H POC Glucose Calcium Phosphorus Magnesium Iron TIBC Ferritin Total Bilirubin AST ALT 327 H Lactate Dehydrogenase Total Creatine Kinase Troponin T C-Reactive Protein Albumin 3.1 L Urine WBC (Auto) Urine Creatinine Urine Total Protein Complement C3 Coronavirus (PCR) Hepatitis C Antibody Crossmatch 05/09/21 05/09/21 05/09/21 04:10 04:20 04:20 WBC 11.7 H RBC 2.79 L Hgb 8.7 L Hct 26.5 L MCV 95 H MCHC RDW 16.2 H Lymph % (Auto) [place] % (Auto) Lymph # (Auto) [place] # (Auto) Seg Neutrophils % Seg Neuts % (Manual) Lymphocytes % (Manual) Monocytes % (Manual) Seg Neutrophils # Seg Neutrophils # Man Lymphocytes # (Manual) Monocytes # (Manual) Haptoglobin PT APTT D-Dimer Heparin Anti-Xa Level ABG pH ABG pO2 161.6 H ABG HCO3 ABG O2 Saturation ABG Base Excess ABG Hemoglobin 8.3 L Oxyhemoglobin Sodium 151 H Potassium Chloride 114.5 H Carbon Dioxide 21 L BUN 57 H Creatinine 2.4 H Glucose POC Glucose Calcium Phosphorus Magnesium Iron TIBC Ferritin Total Bilirubin AST ALT 210 H Lactate Dehydrogenase Total Creatine Kinase Troponin T C-Reactive Protein Albumin 2.9 L Urine WBC (Auto) Urine Creatinine Urine Total Protein Complement C3 Coronavirus (PCR) Hepatitis C Antibody Crossmatch 05/09/21 05/09/21 05/09/21 09:48 09:48 13:22 WBC 11.6 H RBC 3.00 L Hgb 9.0 L Hct 28.4 L MCV MCHC RDW 15.9 H Lymph % (Auto) 5.9 L [place] % (Auto) 8.9 H Lymph # (Auto) 0.7 L [place] # (Auto) 1.0 H Seg Neutrophils % 84.3 H Seg Neuts % (Manual) Lymphocytes % (Manual) Monocytes % (Manual) Seg Neutrophils # 9.8 H Seg Neutrophils # Man Lymphocytes # (Manual) Monocytes # (Manual) Haptoglobin PT APTT D-Dimer Heparin Anti-Xa Level ABG pH ABG pO2 ABG HCO3 ABG O2 Saturation ABG Base Excess ABG Hemoglobin Oxyhemoglobin Sodium Potassium Chloride Carbon Dioxide BUN Creatinine Glucose POC Glucose Calcium Phosphorus Magnesium Iron TIBC Ferritin Total Bilirubin AST ALT Lactate Dehydrogenase Total Creatine Kinase Troponin T C-Reactive Protein 8.70 H Albumin Urine WBC (Auto) 25.0 H Urine Creatinine Urine Total Protein Complement C3 Coronavirus (PCR) Hepatitis C Antibody Crossmatch 05/09/21 05/09/21 05/10/21 15:20 18:16 04:57 WBC RBC 2.87 L Hgb 8.8 L Hct 27.0 L MCV MCHC RDW 15.9 H Lymph % (Auto) [place] % (Auto) Lymph # (Auto) [place] # (Auto) Seg Neutrophils % Seg Neuts % (Manual) Lymphocytes % (Manual) Monocytes % (Manual) Seg Neutrophils # Seg Neutrophils # Man Lymphocytes # (Manual) Monocytes # (Manual) Haptoglobin PT APTT D-Dimer Heparin Anti-Xa Level ABG pH ABG pO2 102.0 H ABG HCO3 ABG O2 Saturation ABG Base Excess -2.8 L ABG Hemoglobin 9.0 L Oxyhemoglobin Sodium Potassium Chloride Carbon Dioxide BUN Creatinine Glucose POC Glucose 130 H Calcium Phosphorus Magnesium Iron TIBC Ferritin Total Bilirubin AST ALT Lactate Dehydrogenase Total Creatine Kinase Troponin T C-Reactive Protein Albumin Urine WBC (Auto) Urine Creatinine Urine Total Protein Complement C3 Coronavirus (PCR) Hepatitis C Antibody Crossmatch 05/10/21 05/10/21 05/10/21 04:57 04:57 04:57 WBC RBC Hgb Hct MCV MCHC RDW Lymph % (Auto) [place] % (Auto) Lymph # (Auto) [place] # (Auto) Seg Neutrophils % Seg Neuts % (Manual) Lymphocytes % (Manual) Monocytes % (Manual) Seg Neutrophils # Seg Neutrophils # Man Lymphocytes # (Manual) Monocytes # (Manual) Haptoglobin PT APTT D-Dimer 1546.78 H Heparin Anti-Xa Level ABG pH ABG pO2 ABG HCO3 ABG O2 Saturation ABG Base Excess ABG Hemoglobin Oxyhemoglobin Sodium 148 H Potassium Chloride 114.9 H Carbon Dioxide 21 L BUN 57 H Creatinine 2.3 H Glucose 157 H POC Glucose Calcium Phosphorus Magnesium Iron TIBC Ferritin 888.2 H Total Bilirubin AST ALT Lactate Dehydrogenase 289 H Total Creatine Kinase Troponin T C-Reactive Protein 6.80 H Albumin Urine WBC (Auto) Urine Creatinine Urine Total Protein Complement C3 Coronavirus (PCR) Hepatitis C Antibody Crossmatch 05/10/21 05/10/21 05/10/21 05:09 08:04 11:03 WBC RBC Hgb Hct MCV MCHC RDW Lymph % (Auto) [place] % (Auto) Lymph # (Auto) [place] # (Auto) Seg Neutrophils % Seg Neuts % (Manual) Lymphocytes % (Manual) Monocytes % (Manual) Seg Neutrophils # Seg Neutrophils # Man Lymphocytes # (Manual) Monocytes # (Manual) Haptoglobin PT APTT D-Dimer Heparin Anti-Xa Level ABG pH 7.473 H ABG pO2 114.6 H ABG HCO3 ABG O2 Saturation ABG Base Excess ABG Hemoglobin 9.5 L Oxyhemoglobin Sodium Potassium Chloride Carbon Dioxide BUN Creatinine Glucose POC Glucose 152 H Calcium Phosphorus Magnesium Iron TIBC Ferritin Total Bilirubin AST ALT Lactate Dehydrogenase Total Creatine Kinase Troponin T C-Reactive Protein Albumin Urine WBC (Auto) Urine Creatinine 100.8 H Urine Total Protein 42 H Complement C3 Coronavirus (PCR) Hepatitis C Antibody Crossmatch 05/10/21 05/10/21 05/10/21 13:07 18:01 23:31 WBC RBC Hgb Hct MCV MCHC RDW Lymph % (Auto) [place] % (Auto) Lymph # (Auto) [place] # (Auto) Seg Neutrophils % Seg Neuts % (Manual) Lymphocytes % (Manual) Monocytes % (Manual) Seg Neutrophils # Seg Neutrophils # Man Lymphocytes # (Manual) Monocytes # (Manual) Haptoglobin PT APTT D-Dimer Heparin Anti-Xa Level ABG pH ABG pO2 ABG HCO3 ABG O2 Saturation ABG Base Excess ABG Hemoglobin Oxyhemoglobin Sodium Potassium Chloride Carbon Dioxide BUN Creatinine Glucose POC Glucose 150 H 189 H 142 H Calcium Phosphorus Magnesium Iron TIBC Ferritin Total Bilirubin AST ALT Lactate Dehydrogenase Total Creatine Kinase Troponin T C-Reactive Protein Albumin Urine WBC (Auto) Urine Creatinine Urine Total Protein Complement C3 Coronavirus (PCR) Hepatitis C Antibody Crossmatch 05/10/21 05/11/21 05/11/21 Unknown 05:25 06:53 WBC RBC Hgb Hct MCV MCHC RDW Lymph % (Auto) [place] % (Auto) Lymph # (Auto) [place] # (Auto) Seg Neutrophils % Seg Neuts % (Manual) Lymphocytes % (Manual) Monocytes % (Manual) Seg Neutrophils # Seg Neutrophils # Man Lymphocytes # (Manual) Monocytes # (Manual) Haptoglobin PT APTT D-Dimer Heparin Anti-Xa Level ABG pH ABG pO2 126.6 H ABG HCO3 ABG O2 Saturation ABG Base Excess ABG Hemoglobin 9.2 L Oxyhemoglobin Sodium 150 H Potassium Chloride 116.6 H Carbon Dioxide 21 L BUN 62 H Creatinine 2.5 H Glucose 142 H POC Glucose 163 H Calcium Phosphorus Magnesium Iron TIBC Ferritin Total Bilirubin AST ALT Lactate Dehydrogenase Total Creatine Kinase Troponin T C-Reactive Protein Albumin Urine WBC (Auto) Urine Creatinine Urine Total Protein Complement C3 Coronavirus (PCR) Hepatitis C Antibody Crossmatch 05/11/21 05/11/21 05/11/21 06:53 11:06 13:51 WBC RBC 3.07 L Hgb 9.3 L Hct 29.0 L MCV 95 H MCHC RDW 16.1 H Lymph % (Auto) [place] % (Auto) Lymph # (Auto) [place] # (Auto) Seg Neutrophils % Seg Neuts % (Manual) Lymphocytes % (Manual) Monocytes % (Manual) Seg Neutrophils # Seg Neutrophils # Man Lymphocytes # (Manual) Monocytes # (Manual) Haptoglobin PT APTT D-Dimer Heparin Anti-Xa Level ABG pH ABG pO2 74.9 L ABG HCO3 ABG O2 Saturation ABG Base Excess -3.3 L ABG Hemoglobin 10.8 L Oxyhemoglobin Sodium Potassium Chloride Carbon Dioxide BUN Creatinine Glucose POC Glucose 145 H Calcium Phosphorus Magnesium Iron TIBC Ferritin Total Bilirubin AST ALT Lactate Dehydrogenase Total Creatine Kinase Troponin T C-Reactive Protein Albumin Urine WBC (Auto) Urine Creatinine Urine Total Protein Complement C3 Coronavirus (PCR) Hepatitis C Antibody Crossmatch 05/11/21 05/11/2105/11/22 14:43 14:43 15:47 WBC RBC Hgb 9.2 L Hct 29.7 L MCV MCHC RDW Lymph % (Auto) [place] % (Auto) Lymph # (Auto) [place] # (Auto) Seg Neutrophils % Seg Neuts % (Manual) Lymphocytes % (Manual) Monocytes % (Manual) Seg Neutrophils # Seg Neutrophils # Man Lymphocytes # (Manual) Monocytes # (Manual) Haptoglobin PT 15.6 H APTT D-Dimer Heparin Anti-Xa Level ABG pH ABG pO2 ABG HCO3 ABG O2 Saturation ABG Base Excess ABG Hemoglobin Oxyhemoglobin Sodium Potassium Chloride Carbon Dioxide BUN Creatinine Glucose POC Glucose 137 H Calcium Phosphorus Magnesium Iron TIBC Ferritin Total Bilirubin AST ALT Lactate Dehydrogenase Total Creatine Kinase Troponin T C-Reactive Protein Albumin Urine WBC (Auto) Urine Creatinine Urine Total Protein Complement C3 Coronavirus (PCR) Hepatitis C Antibody Crossmatch 05/12/21 05/12/21 05/12/21 00:04 05:07 07:19 WBC 11.9 H RBC 3.00 L Hgb 9.1 L Hct 28.9 L MCV 96 H MCHC RDW 16.7 H Lymph % (Auto) 11.5 L [place] % (Auto) 8.2 H Lymph # (Auto) [place] # (Auto) 1.0 H Seg Neutrophils % 80.0 H Seg Neuts % (Manual) Lymphocytes % (Manual) Monocytes % (Manual) Seg Neutrophils # 9.6 H Seg Neutrophils # Man Lymphocytes # (Manual) Monocytes # (Manual) Haptoglobin PT APTT D-Dimer Heparin Anti-Xa Level ABG pH ABG pO2 ABG HCO3 ABG O2 Saturation ABG Base Excess ABG Hemoglobin Oxyhemoglobin Sodium Potassium Chloride Carbon Dioxide BUN Creatinine Glucose POC Glucose 121 H 117 H Calcium Phosphorus Magnesium Iron TIBC Ferritin Total Bilirubin AST ALT Lactate Dehydrogenase Total Creatine Kinase Troponin T C-Reactive Protein Albumin Urine WBC (Auto) Urine Creatinine Urine Total Protein Complement C3 Coronavirus (PCR) Hepatitis C Antibody Crossmatch 05/12/21 05/12/21 05/12/21 07:19 07:19 07:19 WBC RBC Hgb Hct MCV MCHC RDW Lymph % (Auto) [place] % (Auto) Lymph # (Auto) [place] # (Auto) Seg Neutrophils % Seg Neuts % (Manual) Lymphocytes % (Manual) Monocytes % (Manual) Seg Neutrophils # Seg Neutrophils # Man Lymphocytes # (Manual) Monocytes # (Manual) Haptoglobin PT APTT D-Dimer 2730.61 H Heparin Anti-Xa Level ABG pH ABG pO2 ABG HCO3 ABG O2 Saturation ABG Base Excess ABG Hemoglobin Oxyhemoglobin Sodium 146 H Potassium 5.1 H Chloride 112.4 H Carbon Dioxide 21 L BUN 61 H Creatinine 2.2 H Glucose 136 H POC Glucose Calcium 8.1 L Phosphorus Magnesium Iron TIBC Ferritin 640.2 H Total Bilirubin AST ALT Lactate Dehydrogenase 314 H Total Creatine Kinase Troponin T C-Reactive Protein 1.60 H Albumin Urine WBC (Auto) Urine Creatinine Urine Total Protein Complement C3 Coronavirus (PCR) Hepatitis C Antibody Crossmatch 05/12/21 05/12/21 05/12/21 11:10 16:10 16:38 WBC RBC Hgb Hct MCV MCHC RDW Lymph % (Auto) [place] % (Auto) Lymph # (Auto) [place] # (Auto) Seg Neutrophils % Seg Neuts % (Manual) Lymphocytes % (Manual) Monocytes % (Manual) Seg Neutrophils # Seg Neutrophils # Man Lymphocytes # (Manual) Monocytes # (Manual) Haptoglobin PT APTT D-Dimer Heparin Anti-Xa Level 0.20 L ABG pH ABG pO2 ABG HCO3 ABG O2 Saturation ABG Base Excess ABG Hemoglobin Oxyhemoglobin Sodium Potassium Chloride Carbon Dioxide BUN Creatinine Glucose POC Glucose 131 H 157 H Calcium Phosphorus Magnesium Iron TIBC Ferritin Total Bilirubin AST ALT Lactate Dehydrogenase Total Creatine Kinase Troponin T C-Reactive Protein Albumin Urine WBC (Auto) Urine Creatinine Urine Total Protein Complement C3 Coronavirus (PCR) Hepatitis C Antibody Crossmatch 05/12/21 05/13/21 05/13/21 23:30 00:12 04:20 WBC RBC Hgb Hct MCV MCHC RDW Lymph % (Auto) [place] % (Auto) Lymph # (Auto) [place] # (Auto) Seg Neutrophils % Seg Neuts % (Manual) Lymphocytes % (Manual) Monocytes % (Manual) Seg Neutrophils # Seg Neutrophils # Man Lymphocytes # (Manual) Monocytes # (Manual) Haptoglobin PT APTT D-Dimer Heparin Anti-Xa Level 0.13 L ABG pH ABG pO2 ABG HCO3 ABG O2 Saturation ABG Base Excess ABG Hemoglobin Oxyhemoglobin Sodium Potassium Chloride 111.2 H Carbon Dioxide BUN 53 H Creatinine 1.9 H Glucose 121 H POC Glucose 115 H Calcium 8.3 L Phosphorus Magnesium Iron TIBC Ferritin Total Bilirubin AST ALT Lactate Dehydrogenase Total Creatine Kinase Troponin T C-Reactive Protein Albumin Urine WBC (Auto) Urine Creatinine Urine Total Protein Complement C3 Coronavirus (PCR) Hepatitis C Antibody Crossmatch 05/13/21 05/13/21 05/13/21 04:20 11:15 11:29 WBC 13.1 H RBC 2.86 L Hgb 8.5 L Hct 26.9 L MCV MCHC RDW 15.7 H Lymph % (Auto) [place] % (Auto) Lymph # (Auto) [place] # (Auto) Seg Neutrophils % Seg Neuts % (Manual) Lymphocytes % (Manual) Monocytes % (Manual) Seg Neutrophils # Seg Neutrophils # Man Lymphocytes # (Manual) Monocytes # (Manual) Haptoglobin PT APTT D-Dimer Heparin Anti-Xa Level ABG pH 7.456 H ABG pO2 106.0 H ABG HCO3 ABG O2 Saturation ABG Base Excess ABG Hemoglobin 7.1 L Oxyhemoglobin Sodium Potassium Chloride Carbon Dioxide BUN Creatinine Glucose POC Glucose 121 H Calcium Phosphorus Magnesium Iron TIBC Ferritin Total Bilirubin AST ALT Lactate Dehydrogenase Total Creatine Kinase Troponin T C-Reactive Protein Albumin Urine WBC (Auto) Urine Creatinine Urine Total Protein Complement C3 Coronavirus (PCR) Hepatitis C Antibody Crossmatch 05/13/21 05/13/21 05/14/21 16:38 23:43 04:26 WBC 14.2 H RBC 3.11 L Hgb 9.4 L Hct 29.3 L MCV MCHC RDW 15.4 H Lymph % (Auto) [place] % (Auto) Lymph # (Auto) [place] # (Auto) Seg Neutrophils % Seg Neuts % (Manual) Lymphocytes % (Manual) Monocytes % (Manual) Seg Neutrophils # Seg Neutrophils # Man Lymphocytes # (Manual) Monocytes # (Manual) Haptoglobin PT APTT D-Dimer Heparin Anti-Xa Level ABG pH ABG pO2 ABG HCO3 ABG O2 Saturation ABG Base Excess ABG Hemoglobin Oxyhemoglobin Sodium Potassium Chloride Carbon Dioxide BUN Creatinine Glucose POC Glucose 119 H 55 L Calcium Phosphorus Magnesium Iron TIBC Ferritin Total Bilirubin AST ALT Lactate Dehydrogenase Total Creatine Kinase Troponin T C-Reactive Protein Albumin Urine WBC (Auto) Urine Creatinine Urine Total Protein Complement C3 Coronavirus (PCR) Hepatitis C Antibody Crossmatch 05/14/21 05/14/21 05/14/21 04:26 05:26 06:51 WBC RBC Hgb Hct MCV MCHC RDW Lymph % (Auto) [place] % (Auto) Lymph # (Auto) [place] # (Auto) Seg Neutrophils % Seg Neuts % (Manual) Lymphocytes % (Manual) Monocytes % (Manual) Seg Neutrophils # Seg Neutrophils # Man Lymphocytes # (Manual) Monocytes # (Manual) Haptoglobin PT APTT D-Dimer Heparin Anti-Xa Level ABG pH ABG pO2 ABG HCO3 ABG O2 Saturation ABG Base Excess ABG Hemoglobin Oxyhemoglobin Sodium Potassium 3.4 L Chloride 107.6 H Carbon Dioxide BUN 42 H Creatinine 1.9 H Glucose POC Glucose 51 L 62 L Calcium Phosphorus Magnesium Iron TIBC Ferritin Total Bilirubin AST ALT Lactate Dehydrogenase Total Creatine Kinase Troponin T C-Reactive Protein Albumin Urine WBC (Auto) Urine Creatinine Urine Total Protein Complement C3 Coronavirus (PCR) Hepatitis C Antibody Crossmatch 05/14/21 05/14/21 05/14/21 09:58 12:05 12:08 WBC RBC Hgb Hct MCV MCHC RDW Lymph % (Auto) [place] % (Auto) Lymph # (Auto) [place] # (Auto) Seg Neutrophils % Seg Neuts % (Manual) Lymphocytes % (Manual) Monocytes % (Manual) Seg Neutrophils # Seg Neutrophils # Man Lymphocytes # (Manual) Monocytes # (Manual) Haptoglobin PT APTT D-Dimer Heparin Anti-Xa Level ABG pH ABG pO2 ABG HCO3 ABG O2 Saturation ABG Base Excess ABG Hemoglobin Oxyhemoglobin Sodium Potassium 3.4 L Chloride Carbon Dioxide BUN 36 H Creatinine 1.8 H Glucose 133 H POC Glucose 60 L 127 H Calcium Phosphorus Magnesium Iron TIBC Ferritin Total Bilirubin AST ALT Lactate Dehydrogenase Total Creatine Kinase Troponin T C-Reactive Protein Albumin Urine WBC (Auto) Urine Creatinine Urine Total Protein Complement C3 Coronavirus (PCR) Hepatitis C Antibody Crossmatch 05/14/21 05/14/21 05/15/21 17:20 23:37 05:34 WBC RBC Hgb Hct MCV MCHC RDW Lymph % (Auto) [place] % (Auto) Lymph # (Auto) [place] # (Auto) Seg Neutrophils % Seg Neuts % (Manual) Lymphocytes % (Manual) Monocytes % (Manual) Seg Neutrophils # Seg Neutrophils # Man Lymphocytes # (Manual) Monocytes # (Manual) Haptoglobin PT APTT D-Dimer Heparin Anti-Xa Level ABG pH ABG pO2 ABG HCO3 ABG O2 Saturation ABG Base Excess ABG Hemoglobin Oxyhemoglobin Sodium Potassium Chloride Carbon Dioxide BUN Creatinine Glucose POC Glucose 144 H 115 H 119 H Calcium Phosphorus Magnesium Iron TIBC Ferritin Total Bilirubin AST ALT Lactate Dehydrogenase Total Creatine Kinase Troponin T C-Reactive Protein Albumin Urine WBC (Auto) Urine Creatinine Urine Total Protein Complement C3 Coronavirus (PCR) Hepatitis C Antibody Crossmatch 05/15/21 05/15/21 05/15/21 07:26 07:26 14:35 WBC 13.8 H RBC 3.32 L Hgb 10.0 L Hct 31.2 L MCV MCHC RDW 16.0 H Lymph % (Auto) [place] % (Auto) Lymph # (Auto) [place] # (Auto) Seg Neutrophils % Seg Neuts % (Manual) Lymphocytes % (Manual) Monocytes % (Manual) Seg Neutrophils # Seg Neutrophils # Man Lymphocytes # (Manual) Monocytes # (Manual) Haptoglobin PT APTT D-Dimer Heparin Anti-Xa Level ABG pH ABG pO2 ABG HCO3 ABG O2 Saturation ABG Base Excess ABG Hemoglobin Oxyhemoglobin Sodium 149 H D Potassium 3.5 L Chloride 113.2 H Carbon Dioxide BUN 29 H Creatinine 1.8 H Glucose 113 H POC Glucose 143 H Calcium Phosphorus Magnesium Iron TIBC Ferritin Total Bilirubin AST ALT Lactate Dehydrogenase Total Creatine Kinase Troponin T C-Reactive Protein Albumin Urine WBC (Auto) Urine Creatinine Urine Total Protein Complement C3 Coronavirus (PCR) Hepatitis C Antibody Crossmatch 05/16/21 05/16/21 05/16/21 06:12 08:43 10:05 WBC RBC Hgb Hct MCV MCHC RDW Lymph % (Auto) [place] % (Auto) Lymph # (Auto) [place] # (Auto) Seg Neutrophils % Seg Neuts % (Manual) Lymphocytes % (Manual) Monocytes % (Manual) Seg Neutrophils # Seg Neutrophils # Man Lymphocytes # (Manual) Monocytes # (Manual) Haptoglobin PT APTT D-Dimer Heparin Anti-Xa Level 0.21 L ABG pH ABG pO2 240.8 H ABG HCO3 ABG O2 Saturation 99.4 H ABG Base Excess -2.6 L ABG Hemoglobin 10.7 L Oxyhemoglobin Sodium Potassium Chloride Carbon Dioxide BUN Creatinine Glucose POC Glucose 34 L Calcium Phosphorus Magnesium Iron TIBC Ferritin Total Bilirubin AST ALT Lactate Dehydrogenase Total Creatine Kinase Troponin T C-Reactive Protein Albumin Urine WBC (Auto) Urine Creatinine Urine Total Protein Complement C3 Coronavirus (PCR) Hepatitis C Antibody Crossmatch 05/16/21 05/16/21 05/16/21 10:21 10:21 13:14 WBC 27.6 H RBC Hgb 11.4 L Hct MCV 99 H MCHC 30 L RDW 18.1 H Lymph % (Auto) [place] % (Auto) Lymph # (Auto) [place] # (Auto) Seg Neutrophils % Seg Neuts % (Manual) 83.0 H Lymphocytes % (Manual) 4.0 L Monocytes % (Manual) 9.0 H Seg Neutrophils # Seg Neutrophils # Man 22.9 H Lymphocytes # (Manual) 1.1 L Monocytes # (Manual) 2.5 H Haptoglobin PT APTT D-Dimer Heparin Anti-Xa Level ABG pH ABG pO2 ABG HCO3 ABG O2 Saturation ABG Base Excess ABG Hemoglobin Oxyhemoglobin Sodium Potassium Chloride 108.8 H Carbon Dioxide 17 L BUN 26 H Creatinine 1.9 H Glucose 141 H POC Glucose Calcium Phosphorus Magnesium Iron TIBC Ferritin Total Bilirubin AST ALT Lactate Dehydrogenase Total Creatine Kinase Troponin T 0.503 H* C-Reactive Protein Albumin 3.1 L Urine WBC (Auto) Urine Creatinine Urine Total Protein Complement C3 Coronavirus (PCR) Hepatitis C Antibody Crossmatch 05/16/21 05/17/21 05/17/21 18:40 00:02 04:52 WBC RBC Hgb 8.8 L Hct 28.5 L D MCV MCHC RDW Lymph % (Auto) [place] % (Auto) Lymph # (Auto) [place] # (Auto) Seg Neutrophils % Seg Neuts % (Manual) Lymphocytes % (Manual) Monocytes % (Manual) Seg Neutrophils # Seg Neutrophils # Man Lymphocytes # (Manual) Monocytes # (Manual) Haptoglobin PT APTT D-Dimer Heparin Anti-Xa Level ABG pH ABG pO2 ABG HCO3 ABG O2 Saturation ABG Base Excess ABG Hemoglobin Oxyhemoglobin Sodium Potassium Chloride Carbon Dioxide BUN Creatinine Glucose POC Glucose 114 H Calcium Phosphorus Magnesium Iron TIBC Ferritin Total Bilirubin AST ALT Lactate Dehydrogenase Total Creatine Kinase Troponin T 0.400 H* D C-Reactive Protein Albumin Urine WBC (Auto) Urine Creatinine Urine Total Protein Complement C3 Coronavirus (PCR) Hepatitis C Antibody Crossmatch 05/17/21 05/17/21 05/17/21 04:52 05:15 06:50 WBC RBC Hgb Hct MCV MCHC RDW Lymph % (Auto) [place] % (Auto) Lymph # (Auto) [place] # (Auto) Seg Neutrophils % Seg Neuts % (Manual) Lymphocytes % (Manual) Monocytes % (Manual) Seg Neutrophils # Seg Neutrophils # Man Lymphocytes # (Manual) Monocytes # (Manual) Haptoglobin PT APTT D-Dimer Heparin Anti-Xa Level ABG pH ABG pO2 193.7 H ABG HCO3 27.7 H ABG O2 Saturation 99.2 H ABG Base Excess 3.4 H ABG Hemoglobin 9.2 L Oxyhemoglobin Sodium 146 H Potassium Chloride 110.3 H Carbon Dioxide BUN 33 H Creatinine 2.3 H Glucose 120 H POC Glucose 109 H Calcium Phosphorus Magnesium Iron TIBC Ferritin Total Bilirubin AST ALT Lactate Dehydrogenase Total Creatine Kinase Troponin T C-Reactive Protein Albumin Urine WBC (Auto) Urine Creatinine Urine Total Protein Complement C3 Coronavirus (PCR) Hepatitis C Antibody Crossmatch 05/17/21 05/17/21 05/17/21 10:30 11:33 15:35 WBC RBC Hgb Hct MCV MCHC RDW Lymph % (Auto) [place] % (Auto) Lymph # (Auto) [place] # (Auto) Seg Neutrophils % Seg Neuts % (Manual) Lymphocytes % (Manual) Monocytes % (Manual) Seg Neutrophils # Seg Neutrophils # Man Lymphocytes # (Manual) Monocytes # (Manual) Haptoglobin PT APTT D-Dimer Heparin Anti-Xa Level ABG pH 7.457 H ABG pO2 162.5 H 103.7 H ABG HCO3 27.7 H 27.5 H ABG O2 Saturation ABG Base Excess 3.6 H ABG Hemoglobin 10.1 L 11.5 L Oxyhemoglobin Sodium Potassium Chloride Carbon Dioxide BUN Creatinine Glucose POC Glucose 122 H Calcium Phosphorus Magnesium Iron TIBC Ferritin Total Bilirubin AST ALT Lactate Dehydrogenase Total Creatine Kinase Troponin T C-Reactive Protein Albumin Urine WBC (Auto) Urine Creatinine Urine Total Protein Complement C3 Coronavirus (PCR) Hepatitis C Antibody Crossmatch 05/17/21 05/17/21 05/17/21 16:21 18:18 23:29 WBC RBC Hgb 9.6 L Hct 30.3 L MCV MCHC RDW Lymph % (Auto) [place] % (Auto) Lymph # (Auto) [place] # (Auto) Seg Neutrophils % Seg Neuts % (Manual) Lymphocytes % (Manual) Monocytes % (Manual) Seg Neutrophils # Seg Neutrophils # Man Lymphocytes # (Manual) Monocytes # (Manual) Haptoglobin PT APTT D-Dimer Heparin Anti-Xa Level ABG pH ABG pO2 ABG HCO3 ABG O2 Saturation ABG Base Excess ABG Hemoglobin Oxyhemoglobin Sodium Potassium Chloride Carbon Dioxide BUN Creatinine Glucose POC Glucose 133 H 111 H Calcium Phosphorus Magnesium Iron TIBC Ferritin Total Bilirubin AST ALT Lactate Dehydrogenase Total Creatine Kinase Troponin T C-Reactive Protein Albumin Urine WBC (Auto) Urine Creatinine Urine Total Protein Complement C3 Coronavirus (PCR) Hepatitis C Antibody Crossmatch 05/18/21 05/18/21 05/18/21 04:15 04:15 05:01 WBC 16.8 H RBC 3.03 L Hgb 8.9 L Hct 28.7 L MCV 95 H MCHC 31 L RDW 16.4 H Lymph % (Auto) [place] % (Auto) Lymph # (Auto) [place] # (Auto) Seg Neutrophils % Seg Neuts % (Manual) Lymphocytes % (Manual) Monocytes % (Manual) Seg Neutrophils # Seg Neutrophils # Man Lymphocytes # (Manual) Monocytes # (Manual) Haptoglobin PT APTT D-Dimer Heparin Anti-Xa Level ABG pH ABG pO2 ABG HCO3 ABG O2 Saturation ABG Base Excess ABG Hemoglobin Oxyhemoglobin Sodium Potassium Chloride Carbon Dioxide BUN 40 H Creatinine 2.1 H Glucose 115 H POC Glucose 113 H Calcium Phosphorus Magnesium Iron TIBC Ferritin Total Bilirubin AST ALT Lactate Dehydrogenase Total Creatine Kinase Troponin T C-Reactive Protein Albumin Urine WBC (Auto) Urine Creatinine Urine Total Protein Complement C3 Coronavirus (PCR) Hepatitis C Antibody Crossmatch 05/18/21 05/18/21 05/19/21 11:18 12:50 05:23 WBC 18.5 H RBC 3.31 L Hgb 9.9 L Hct 31.1 L MCV MCHC RDW 16.9 H Lymph % (Auto) [place] % (Auto) Lymph # (Auto) [place] # (Auto) Seg Neutrophils % Seg Neuts % (Manual) Lymphocytes % (Manual) Monocytes % (Manual) Seg Neutrophils # Seg Neutrophils # Man Lymphocytes # (Manual) Monocytes # (Manual) Haptoglobin PT APTT D-Dimer Heparin Anti-Xa Level ABG pH ABG pO2 79.6 L ABG HCO3 28.0 H ABG O2 Saturation ABG Base Excess 3.3 H ABG Hemoglobin 6.2 L Oxyhemoglobin Sodium Potassium Chloride Carbon Dioxide BUN Creatinine Glucose POC Glucose 129 H Calcium Phosphorus Magnesium Iron TIBC Ferritin Total Bilirubin AST ALT Lactate Dehydrogenase Total Creatine Kinase Troponin T C-Reactive Protein Albumin Urine WBC (Auto) Urine Creatinine Urine Total Protein Complement C3 Coronavirus (PCR) Hepatitis C Antibody Crossmatch 0205/19/21 05/19/21 05:23 05:23 11:24 WBC RBC Hgb Hct MCV MCHC RDW Lymph % (Auto) [place] % (Auto) Lymph # (Auto) [place] # (Auto) Seg Neutrophils % Seg Neuts % (Manual) Lymphocytes % (Manual) Monocytes % (Manual) Seg Neutrophils # Seg Neutrophils # Man Lymphocytes # (Manual) Monocytes # (Manual) Haptoglobin PT APTT D-Dimer Heparin Anti-Xa Level ABG pH ABG pO2 ABG HCO3 ABG O2 Saturation ABG Base Excess ABG Hemoglobin Oxyhemoglobin Sodium Potassium Chloride Carbon Dioxide BUN 35 H 34 H Creatinine 2.0 H 2.1 H Glucose POC Glucose 111 H Calcium Phosphorus Magnesium Iron TIBC Ferritin Total Bilirubin AST ALT Lactate Dehydrogenase Total Creatine Kinase Troponin T C-Reactive Protein Albumin Urine WBC (Auto) Urine Creatinine Urine Total Protein Complement C3 Coronavirus (PCR) Hepatitis C Antibody Crossmatch 05/19/21 05/19/21 05/19/21 16:33 19:36 23:47 WBC RBC Hgb Hct MCV MCHC RDW Lymph % (Auto) [place] % (Auto) Lymph # (Auto) [place] # (Auto) Seg Neutrophils % Seg Neuts % (Manual) Lymphocytes % (Manual) Monocytes % (Manual) Seg Neutrophils # Seg Neutrophils # Man Lymphocytes # (Manual) Monocytes # (Manual) Haptoglobin PT APTT 72.5 H* D-Dimer Heparin Anti-Xa Level ABG pH ABG pO2 ABG HCO3 ABG O2 Saturation ABG Base Excess ABG Hemoglobin Oxyhemoglobin Sodium Potassium Chloride Carbon Dioxide BUN Creatinine Glucose POC Glucose 131 H 122 H Calcium Phosphorus Magnesium Iron TIBC Ferritin Total Bilirubin AST ALT Lactate Dehydrogenase Total Creatine Kinase Troponin T C-Reactive Protein Albumin Urine WBC (Auto) Urine Creatinine Urine Total Protein Complement C3 Coronavirus (PCR) Hepatitis C Antibody Crossmatch 05/20/21 05/20/21 05/20/21 05:14 05:14 06:12 WBC 19.7 H RBC 3.19 L Hgb 9.5 L Hct 29.9 L MCV MCHC RDW 17.3 H Lymph % (Auto) [place] % (Auto) Lymph # (Auto) [place] # (Auto) Seg Neutrophils % Seg Neuts % (Manual) Lymphocytes % (Manual) Monocytes % (Manual) Seg Neutrophils # Seg Neutrophils # Man Lymphocytes # (Manual) Monocytes # (Manual) Haptoglobin PT APTT D-Dimer Heparin Anti-Xa Level ABG pH ABG pO2 ABG HCO3 ABG O2 Saturation ABG Base Excess ABG Hemoglobin Oxyhemoglobin Sodium Potassium Chloride Carbon Dioxide BUN 31 H Creatinine 2.1 H Glucose 130 H POC Glucose 120 H Calcium Phosphorus Magnesium Iron TIBC Ferritin Total Bilirubin AST ALT Lactate Dehydrogenase Total Creatine Kinase Troponin T C-Reactive Protein Albumin Urine WBC (Auto) Urine Creatinine Urine Total Protein Complement C3 Coronavirus (PCR) Hepatitis C Antibody Crossmatch 05/20/21 05/20/21 05/20/21 11:10 18:12 23:55 WBC RBC Hgb Hct MCV MCHC RDW Lymph % (Auto) [place] % (Auto) Lymph # (Auto) [place] # (Auto) Seg Neutrophils % Seg Neuts % (Manual) Lymphocytes % (Manual) Monocytes % (Manual) Seg Neutrophils # Seg Neutrophils # Man Lymphocytes # (Manual) Monocytes # (Manual) Haptoglobin PT APTT D-Dimer Heparin Anti-Xa Level ABG pH ABG pO2 ABG HCO3 ABG O2 Saturation ABG Base Excess ABG Hemoglobin Oxyhemoglobin Sodium Potassium Chloride Carbon Dioxide BUN Creatinine Glucose POC Glucose 152 H 137 H 146 H Calcium Phosphorus Magnesium Iron TIBC Ferritin Total Bilirubin AST ALT Lactate Dehydrogenase Total Creatine Kinase Troponin T C-Reactive Protein Albumin Urine WBC (Auto) Urine Creatinine Urine Total Protein Complement C3 Coronavirus (PCR) Hepatitis C Antibody Crossmatch 05/21/21 05/21/21 05/21/21 03:12 03:12 05:53 WBC 26.2 H RBC 2.58 L Hgb 7.7 L Hct 24.2 L MCV MCHC RDW 17.8 H Lymph % (Auto) [place] % (Auto) Lymph # (Auto) [place] # (Auto) Seg Neutrophils % Seg Neuts % (Manual) Lymphocytes % (Manual) Monocytes % (Manual) Seg Neutrophils # Seg Neutrophils # Man Lymphocytes # (Manual) Monocytes # (Manual) Haptoglobin PT APTT D-Dimer Heparin Anti-Xa Level ABG pH ABG pO2 ABG HCO3 ABG O2 Saturation ABG Base Excess ABG Hemoglobin Oxyhemoglobin Sodium 133 L Potassium 5.7 H D Chloride Carbon Dioxide 21 L BUN 49 H Creatinine 2.6 H Glucose 160 H POC Glucose 118 H Calcium Phosphorus Magnesium Iron TIBC Ferritin Total Bilirubin AST ALT Lactate Dehydrogenase Total Creatine Kinase Troponin T C-Reactive Protein Albumin Urine WBC (Auto) Urine Creatinine Urine Total Protein Complement C3 Coronavirus (PCR) Hepatitis C Antibody Crossmatch 05/21/21 05/22/21 05/22/21 18:00 00:13 05:05 WBC RBC Hgb Hct MCV MCHC RDW Lymph % (Auto) [place] % (Auto) Lymph # (Auto) [place] # (Auto) Seg Neutrophils % Seg Neuts % (Manual) Lymphocytes % (Manual) Monocytes % (Manual) Seg Neutrophils # Seg Neutrophils # Man Lymphocytes # (Manual) Monocytes # (Manual) Haptoglobin PT APTT D-Dimer Heparin Anti-Xa Level ABG pH 7.500 H ABG pO2 56.6 L ABG HCO3 ABG O2 Saturation ABG Base Excess ABG Hemoglobin 6.7 L Oxyhemoglobin 94.8 L Sodium 136 L Potassium 5.2 H Chloride Carbon Dioxide BUN 59 H Creatinine 2.6 H Glucose 138 H POC Glucose 109 H Calcium Phosphorus Magnesium Iron TIBC Ferritin Total Bilirubin AST ALT Lactate Dehydrogenase Total Creatine Kinase Troponin T C-Reactive Protein Albumin Urine WBC (Auto) Urine Creatinine Urine Total Protein Complement C3 Coronavirus (PCR) Hepatitis C Antibody Crossmatch 05/22/21 05/22/21 05/22/21 06:07 11:49 16:33 WBC RBC Hgb Hct MCV MCHC RDW Lymph % (Auto) [place] % (Auto) Lymph # (Auto) [place] # (Auto) Seg Neutrophils % Seg Neuts % (Manual) Lymphocytes % (Manual) Monocytes % (Manual) Seg Neutrophils # Seg Neutrophils # Man Lymphocytes # (Manual) Monocytes # (Manual) Haptoglobin PT APTT D-Dimer Heparin Anti-Xa Level ABG pH ABG pO2 ABG HCO3 ABG O2 Saturation ABG Base Excess ABG Hemoglobin Oxyhemoglobin Sodium Potassium Chloride Carbon Dioxide BUN Creatinine Glucose POC Glucose 110 H 117 H 119 H Calcium Phosphorus Magnesium Iron TIBC Ferritin Total Bilirubin AST ALT Lactate Dehydrogenase Total Creatine Kinase Troponin T C-Reactive Protein Albumin Urine WBC (Auto) Urine Creatinine Urine Total Protein Complement C3 Coronavirus (PCR) Hepatitis C Antibody Crossmatch 05/23/21 05/23/21 05/23/21 04:48 04:48 07:12 WBC 21.1 H RBC 2.03 L Hgb 6.2 L Hct 19.4 L* MCV 96 H MCHC RDW 17.5 H Lymph % (Auto) [place] % (Auto) Lymph # (Auto) [place] # (Auto) Seg Neutrophils % Seg Neuts % (Manual) Lymphocytes % (Manual) Monocytes % (Manual) Seg Neutrophils # Seg Neutrophils # Man Lymphocytes # (Manual) Monocytes # (Manual) Haptoglobin PT APTT D-Dimer Heparin Anti-Xa Level ABG pH ABG pO2 ABG HCO3 ABG O2 Saturation ABG Base Excess ABG Hemoglobin Oxyhemoglobin Sodium Potassium Chloride Carbon Dioxide BUN 62 H Creatinine 2.8 H Glucose 110 H POC Glucose Calcium Phosphorus Magnesium Iron TIBC Ferritin Total Bilirubin AST ALT Lactate Dehydrogenase Total Creatine Kinase Troponin T C-Reactive Protein Albumin Urine WBC (Auto) Urine Creatinine Urine Total Protein Complement C3 Coronavirus (PCR) Hepatitis C Antibody Crossmatch See Detail 05/23/21 05/23/21 05/23/21 11:19 14:15 16:12 WBC RBC Hgb Hct MCV MCHC RDW Lymph % (Auto) [place] % (Auto) Lymph # (Auto) [place] # (Auto) Seg Neutrophils % Seg Neuts % (Manual) Lymphocytes % (Manual) Monocytes % (Manual) Seg Neutrophils # Seg Neutrophils # Man Lymphocytes # (Manual) Monocytes # (Manual) Haptoglobin PT APTT D-Dimer Heparin Anti-Xa Level ABG pH ABG pO2 294.7 H ABG HCO3 ABG O2 Saturation 99.5 H ABG Base Excess ABG Hemoglobin 6.5 L Oxyhemoglobin Sodium Potassium Chloride Carbon Dioxide BUN Creatinine Glucose POC Glucose 127 H 120 H Calcium Phosphorus Magnesium Iron TIBC Ferritin Total Bilirubin AST ALT Lactate Dehydrogenase Total Creatine Kinase Troponin T C-Reactive Protein Albumin Urine WBC (Auto) Urine Creatinine Urine Total Protein Complement C3 Coronavirus (PCR) Hepatitis C Antibody Crossmatch 05/23/21 05/23/21 05/23/21 16:30 16:30 18:54 WBC RBC Hgb Hct MCV MCHC RDW Lymph % (Auto) [place] % (Auto) Lymph # (Auto) [place] # (Auto) Seg Neutrophils % Seg Neuts % (Manual) Lymphocytes % (Manual) Monocytes % (Manual) Seg Neutrophils # Seg Neutrophils # Man Lymphocytes # (Manual) Monocytes # (Manual) Haptoglobin 254 H PT APTT D-Dimer Heparin Anti-Xa Level ABG pH ABG pO2 ABG HCO3 ABG O2 Saturation ABG Base Excess ABG Hemoglobin Oxyhemoglobin Sodium Potassium Chloride Carbon Dioxide BUN Creatinine Glucose POC Glucose Calcium Phosphorus Magnesium Iron TIBC Ferritin Total Bilirubin AST ALT Lactate Dehydrogenase Total Creatine Kinase Troponin T C-Reactive Protein Albumin Urine WBC (Auto) 12.0 H Urine Creatinine 100.1 H Urine Total Protein Complement C3 Coronavirus (PCR) Hepatitis C Antibody Crossmatch 05/23/21 05/23/21 05/24/21 18:54 Unknown 00:11 WBC 21.7 H RBC 2.40 L Hgb 7.1 L Hct 22.9 L MCV 96 H MCHC 31 L RDW 16.8 H Lymph % (Auto) [place] % (Auto) Lymph # (Auto) [place] # (Auto) Seg Neutrophils % Seg Neuts % (Manual) Lymphocytes % (Manual) Monocytes % (Manual) Seg Neutrophils # Seg Neutrophils # Man Lymphocytes # (Manual) Monocytes # (Manual) Haptoglobin PT APTT D-Dimer Heparin Anti-Xa Level ABG pH ABG pO2 ABG HCO3 ABG O2 Saturation ABG Base Excess ABG Hemoglobin Oxyhemoglobin Sodium Potassium Chloride Carbon Dioxide BUN Creatinine Glucose POC Glucose 110 H Calcium Phosphorus Magnesium Iron 10 L TIBC 151 L Ferritin Total Bilirubin AST ALT Lactate Dehydrogenase 311 H Total Creatine Kinase Troponin T C-Reactive Protein Albumin Urine WBC (Auto) Urine Creatinine Urine Total Protein Complement C3 Coronavirus (PCR) Hepatitis C Antibody Crossmatch 05/24/21 05/24/21 05/24/21 04:11 04:11 05:10 WBC 16.7 H RBC 2.19 L Hgb 6.4 L Hct 20.5 L MCV MCHC 31 L RDW 17.0 H Lymph % (Auto) [place] % (Auto) Lymph # (Auto) [place] # (Auto) Seg Neutrophils % Seg Neuts % (Manual) Lymphocytes % (Manual) Monocytes % (Manual) Seg Neutrophils # Seg Neutrophils # Man Lymphocytes # (Manual) Monocytes # (Manual) Haptoglobin PT APTT D-Dimer Heparin Anti-Xa Level ABG pH ABG pO2 ABG HCO3 ABG O2 Saturation ABG Base Excess ABG Hemoglobin Oxyhemoglobin Sodium Potassium Chloride Carbon Dioxide BUN 78 H Creatinine 2.8 H Glucose 119 H POC Glucose 108 H Calcium Phosphorus 5.30 H Magnesium 2.60 H Iron TIBC Ferritin Total Bilirubin AST 152 H ALT 125 H Lactate Dehydrogenase Total Creatine Kinase Troponin T C-Reactive Protein Albumin 2.5 L Urine WBC (Auto) Urine Creatinine Urine Total Protein Complement C3 Coronavirus (PCR) Hepatitis C Antibody Crossmatch 05/24/21 05/25/21 05/25/21 09:55 04:25 04:25 WBC 13.8 H RBC 2.78 L Hgb 8.3 L Hct 25.6 L MCV MCHC RDW 16.2 H Lymph % (Auto) [place] % (Auto) Lymph # (Auto) [place] # (Auto) Seg Neutrophils % Seg Neuts % (Manual) Lymphocytes % (Manual) Monocytes % (Manual) Seg Neutrophils # Seg Neutrophils # Man Lymphocytes # (Manual) Monocytes # (Manual) Haptoglobin PT APTT D-Dimer Heparin Anti-Xa Level ABG pH ABG pO2 141.9 H ABG HCO3 ABG O2 Saturation ABG Base Excess ABG Hemoglobin 6.5 L Oxyhemoglobin Sodium Potassium Chloride Carbon Dioxide BUN 76 H Creatinine 2.6 H Glucose 110 H POC Glucose Calcium 8.1 L Phosphorus Magnesium Iron TIBC Ferritin Total Bilirubin AST ALT Lactate Dehydrogenase Total Creatine Kinase Troponin T C-Reactive Protein Albumin Urine WBC (Auto) Urine Creatinine Urine Total Protein Complement C3 Coronavirus (PCR) Hepatitis C Antibody Crossmatch 05/25/21 05/25/21 05/25/21 05:19 09:40 17:11 WBC RBC Hgb Hct MCV MCHC RDW Lymph % (Auto) [place] % (Auto) Lymph # (Auto) [place] # (Auto) Seg Neutrophils % Seg Neuts % (Manual) Lymphocytes % (Manual) Monocytes % (Manual) Seg Neutrophils # Seg Neutrophils # Man Lymphocytes # (Manual) Monocytes # (Manual) Haptoglobin PT APTT D-Dimer Heparin Anti-Xa Level ABG pH ABG pO2 150.9 H ABG HCO3 ABG O2 Saturation ABG Base Excess ABG Hemoglobin 7.0 L Oxyhemoglobin Sodium Potassium Chloride Carbon Dioxide BUN Creatinine Glucose POC Glucose 123 H 108 H Calcium Phosphorus Magnesium Iron TIBC Ferritin Total Bilirubin AST ALT Lactate Dehydrogenase Total Creatine Kinase Troponin T C-Reactive Protein Albumin Urine WBC (Auto) Urine Creatinine Urine Total Protein Complement C3 Coronavirus (PCR) Hepatitis C Antibody Crossmatch 05/25/21 05/26/21 05/26/21 23:37 05:02 07:09 WBC RBC Hgb Hct MCV MCHC RDW Lymph % (Auto) [place] % (Auto) Lymph # (Auto) [place] # (Auto) Seg Neutrophils % Seg Neuts % (Manual) Lymphocytes % (Manual) Monocytes % (Manual) Seg Neutrophils # Seg Neutrophils # Man Lymphocytes # (Manual) Monocytes # (Manual) Haptoglobin PT APTT D-Dimer Heparin Anti-Xa Level ABG pH ABG pO2 ABG HCO3 ABG O2 Saturation ABG Base Excess ABG Hemoglobin Oxyhemoglobin Sodium Potassium Chloride Carbon Dioxide BUN 62 H Creatinine 2.1 H Glucose 112 H POC Glucose 117 H 112 H Calcium 8.2 L Phosphorus Magnesium Iron TIBC Ferritin Total Bilirubin AST ALT Lactate Dehydrogenase Total Creatine Kinase Troponin T C-Reactive Protein Albumin Urine WBC (Auto) Urine Creatinine Urine Total Protein Complement C3 Coronavirus (PCR) Hepatitis C Antibody Crossmatch 05/26/21 05/26/21 05/26/21 07:09 09:10 09:50 WBC 15.8 H RBC 3.21 L Hgb 9.2 L Hct 29.6 L MCV MCHC 31 L RDW 16.6 H Lymph % (Auto) [place] % (Auto) Lymph # (Auto) [place] # (Auto) Seg Neutrophils % Seg Neuts % (Manual) Lymphocytes % (Manual) Monocytes % (Manual) Seg Neutrophils # Seg Neutrophils # Man Lymphocytes # (Manual) Monocytes # (Manual) Haptoglobin PT APTT D-Dimer Heparin Anti-Xa Level ABG pH ABG pO2 135.5 H ABG HCO3 ABG O2 Saturation ABG Base Excess ABG Hemoglobin 9.6 L Oxyhemoglobin Sodium Potassium Chloride Carbon Dioxide BUN Creatinine Glucose POC Glucose Calcium Phosphorus Magnesium Iron TIBC Ferritin Total Bilirubin AST ALT Lactate Dehydrogenase Total Creatine Kinase Troponin T C-Reactive Protein Albumin Urine WBC (Auto) 38.0 H Urine Creatinine Urine Total Protein Complement C3 Coronavirus (PCR) Hepatitis C Antibody Crossmatch 05/26/21 05/26/21 05/27/21 11:20 18:24 00:24 WBC RBC Hgb Hct MCV MCHC RDW Lymph % (Auto) [place] % (Auto) Lymph # (Auto) [place] # (Auto) Seg Neutrophils % Seg Neuts % (Manual) Lymphocytes % (Manual) Monocytes % (Manual) Seg Neutrophils # Seg Neutrophils # Man Lymphocytes # (Manual) Monocytes # (Manual) Haptoglobin PT APTT D-Dimer Heparin Anti-Xa Level ABG pH ABG pO2 ABG HCO3 ABG O2 Saturation ABG Base Excess ABG Hemoglobin Oxyhemoglobin Sodium Potassium Chloride Carbon Dioxide BUN Creatinine Glucose POC Glucose 109 H 116 H 115 H Calcium Phosphorus Magnesium Iron TIBC Ferritin Total Bilirubin AST ALT Lactate Dehydrogenase Total Creatine Kinase Troponin T C-Reactive Protein Albumin Urine WBC (Auto) Urine Creatinine Urine Total Protein Complement C3 Coronavirus (PCR) Hepatitis C Antibody Crossmatch 05/27/21 05/27/21 05/27/21 05:12 07:47 07:47 WBC 15.5 H RBC 2.86 L Hgb 8.8 L Hct 26.1 L MCV MCHC RDW 16.1 H Lymph % (Auto) [place] % (Auto) Lymph # (Auto) [place] # (Auto) Seg Neutrophils % Seg Neuts % (Manual) Lymphocytes % (Manual) Monocytes % (Manual) Seg Neutrophils # Seg Neutrophils # Man Lymphocytes # (Manual) Monocytes # (Manual) Haptoglobin PT APTT D-Dimer Heparin Anti-Xa Level ABG pH ABG pO2 ABG HCO3 ABG O2 Saturation ABG Base Excess ABG Hemoglobin Oxyhemoglobin Sodium Potassium Chloride 107.3 H Carbon Dioxide BUN 56 H Creatinine 1.8 H Glucose 108 H POC Glucose 108 H Calcium 8.1 L Phosphorus Magnesium Iron TIBC Ferritin Total Bilirubin AST ALT Lactate Dehydrogenase Total Creatine Kinase Troponin T C-Reactive Protein Albumin Urine WBC (Auto) Urine Creatinine Urine Total Protein Complement C3 Coronavirus (PCR) Hepatitis C Antibody Crossmatch 05/27/21 05/27/21 05/28/21 09:20 18:01 00:09 WBC RBC Hgb Hct MCV MCHC RDW Lymph % (Auto) [place] % (Auto) Lymph # (Auto) [place] # (Auto) Seg Neutrophils % Seg Neuts % (Manual) Lymphocytes % (Manual) Monocytes % (Manual) Seg Neutrophils # Seg Neutrophils # Man Lymphocytes # (Manual) Monocytes # (Manual) Haptoglobin PT APTT D-Dimer Heparin Anti-Xa Level ABG pH ABG pO2 115.2 H ABG HCO3 ABG O2 Saturation ABG Base Excess ABG Hemoglobin 9.2 L Oxyhemoglobin Sodium Potassium Chloride Carbon Dioxide BUN Creatinine Glucose POC Glucose 109 H 114 H Calcium Phosphorus Magnesium Iron TIBC Ferritin Total Bilirubin AST ALT Lactate Dehydrogenase Total Creatine Kinase Troponin T C-Reactive Protein Albumin Urine WBC (Auto) Urine Creatinine Urine Total Protein Complement C3 Coronavirus (PCR) Hepatitis C Antibody Crossmatch 05/28/21 05/28/21 05/28/21 04:04 04:04 04:04 WBC 14.1 H RBC 2.87 L Hgb 8.6 L Hct 26.5 L MCV MCHC RDW 15.9 H Lymph % (Auto) [place] % (Auto) Lymph # (Auto) [place] # (Auto) Seg Neutrophils % Seg Neuts % (Manual) 93.0 H Lymphocytes % (Manual) 2.0 L Monocytes % (Manual) Seg Neutrophils # Seg Neutrophils # Man 13.1 H Lymphocytes # (Manual) 0.3 L Monocytes # (Manual) Haptoglobin PT APTT D-Dimer Heparin Anti-Xa Level ABG pH ABG pO2 ABG HCO3 ABG O2 Saturation ABG Base Excess ABG Hemoglobin Oxyhemoglobin Sodium Potassium Chloride Carbon Dioxide BUN 54 H Creatinine 1.7 H Glucose 116 H POC Glucose Calcium 7.7 L Phosphorus Magnesium Iron TIBC Ferritin Total Bilirubin AST ALT Lactate Dehydrogenase Total Creatine Kinase Troponin T C-Reactive Protein 13.20 H Albumin Urine WBC (Auto) Urine Creatinine Urine Total Protein Complement C3 Coronavirus (PCR) Hepatitis C Antibody Crossmatch 05/28/21 05/28/21 05/28/21 05:32 12:06 17:30 WBC RBC Hgb Hct MCV MCHC RDW Lymph % (Auto) [place] % (Auto) Lymph # (Auto) [place] # (Auto) Seg Neutrophils % Seg Neuts % (Manual) Lymphocytes % (Manual) Monocytes % (Manual) Seg Neutrophils # Seg Neutrophils # Man Lymphocytes # (Manual) Monocytes # (Manual) Haptoglobin PT APTT D-Dimer Heparin Anti-Xa Level ABG pH ABG pO2 ABG HCO3 ABG O2 Saturation ABG Base Excess ABG Hemoglobin Oxyhemoglobin Sodium Potassium Chloride Carbon Dioxide BUN Creatinine Glucose POC Glucose 119 H 112 H 114 H Calcium Phosphorus Magnesium Iron TIBC Ferritin Total Bilirubin AST ALT Lactate Dehydrogenase Total Creatine Kinase Troponin T C-Reactive Protein Albumin Urine WBC (Auto) Urine Creatinine Urine Total Protein Complement C3 Coronavirus (PCR) Hepatitis C Antibody Crossmatch 05/28/21 05/29/21 05/29/21 23:46 05:16 11:16 WBC 12.2 H RBC 2.94 L Hgb 8.7 L Hct 27.2 L MCV MCHC RDW 15.8 H Lymph % (Auto) [place] % (Auto) Lymph # (Auto) [place] # (Auto) Seg Neutrophils % Seg Neuts % (Manual) Lymphocytes % (Manual) Monocytes % (Manual) Seg Neutrophils # Seg Neutrophils # Man Lymphocytes # (Manual) Monocytes # (Manual) Haptoglobin PT APTT D-Dimer Heparin Anti-Xa Level ABG pH ABG pO2 ABG HCO3 ABG O2 Saturation ABG Base Excess ABG Hemoglobin Oxyhemoglobin Sodium Potassium Chloride Carbon Dioxide BUN Creatinine Glucose POC Glucose 108 H 113 H Calcium Phosphorus Magnesium Iron TIBC Ferritin Total Bilirubin AST ALT Lactate Dehydrogenase Total Creatine Kinase Troponin T C-Reactive Protein Albumin Urine WBC (Auto) Urine Creatinine Urine Total Protein Complement C3 Coronavirus (PCR) Hepatitis C Antibody Crossmatch 05/29/21 05/29/21 05/29/21 11:16 17:25 23:26 WBC RBC Hgb Hct MCV MCHC RDW Lymph % (Auto) [place] % (Auto) Lymph # (Auto) [place] # (Auto) Seg Neutrophils % Seg Neuts % (Manual) Lymphocytes % (Manual) Monocytes % (Manual) Seg Neutrophils # Seg Neutrophils # Man Lymphocytes # (Manual) Monocytes # (Manual) Haptoglobin PT APTT D-Dimer Heparin Anti-Xa Level ABG pH ABG pO2 ABG HCO3 ABG O2 Saturation ABG Base Excess ABG Hemoglobin Oxyhemoglobin Sodium Potassium Chloride Carbon Dioxide BUN 50 H Creatinine 1.5 H Glucose 117 H POC Glucose 115 H 110 H Calcium 8.0 L Phosphorus Magnesium Iron TIBC Ferritin Total Bilirubin AST ALT Lactate Dehydrogenase Total Creatine Kinase Troponin T C-Reactive Protein Albumin Urine WBC (Auto) Urine Creatinine Urine Total Protein Complement C3 Coronavirus (PCR) Hepatitis C Antibody Crossmatch 05/30/21 05/30/21 05:07 05:11 WBC RBC Hgb Hct MCV MCHC RDW Lymph % (Auto) [place] % (Auto) Lymph # (Auto) [place] # (Auto) Seg Neutrophils % Seg Neuts % (Manual) Lymphocytes % (Manual) Monocytes % (Manual) Seg Neutrophils # Seg Neutrophils # Man Lymphocytes # (Manual) Monocytes # (Manual) Haptoglobin PT APTT D-Dimer Heparin Anti-Xa Level ABG pH ABG pO2 ABG HCO3 ABG O2 Saturation ABG Base Excess ABG Hemoglobin Oxyhemoglobin Sodium Potassium Chloride Carbon Dioxide BUN 55 H Creatinine 1.5 H Glucose 129 H POC Glucose 113 H Calcium 8.2 L Phosphorus Magnesium Iron TIBC Ferritin Total Bilirubin AST ALT Lactate Dehydrogenase Total Creatine Kinase Troponin T C-Reactive Protein Albumin Urine WBC (Auto) Urine Creatinine Urine Total Protein Complement C3 Coronavirus (PCR) Hepatitis C Antibody Crossmatch Chest x-ray: image reviewed Allied health notes reviewed: nursing
[2021-05-30] MEDS ORDERED: fentaNYL 100 MCG/2 ML INJ IV SCH (12:00)
--- NOTE | 2021-05-30 13:52 | Progress Note ---
Assessment and Plan Cultures: Blood culture 05/07/2021 no growth so far Blood culture 05/10/2021 no growth so far Sputum culture 05/16/2021 Enterobacter 05/23/2021 tracheal aspirate culture: Enterobacter 05/26/2021 blood culture: Usual respiratory myra 05/26/2021 urine culture: No growth 05/26/2021 blood culture: No growth A/P: 56 yo M PMHx smoking, A. fib, HTN, medication non-compliance admitted with #Severe COVID-19 pneumonia: Patient presented with a week of symptoms, chest x- ray with diffuse bilateral infiltrates, admission O2 sats decreased on room air. Inflammatory markers elevated. Was not a candidate for Remdesivir. Completed steroids. #Acute hypoxemic respiratory failure: secondary to COVID-19 infection. On the vent. #VAP: Cultures with Enterobacter. #YE: Renally dose medications. #Acute anemia #Urinary tox screen positive for amphetamines Recommendations: -source of fever unclear, cultures negative, recent DVT scan was negative, ?drug fever. Vancomycin discontinued -continue IV ertapenem 1 gm daily, D8 of 10, then STOP Rhonda Mooney MD, FACP, [facility] ([facility] O: [phone] F: [phone] Subjective Date of service: 05/30/21 Principal diagnosis: AHRF; COVID-19 infection; NSTEMI; YE; HFrEF (35-40%); Polysubstance abuse Interval history: Intermittent fevers continue. Remains on the vent. Opens eyes. Objective - Exam Narrative Exam: Physical Exam: Constitutional: opens eyes, intubated, on the vent Head, Ears, Nose: Normocephalic, atraumatic. External ears, nose normal Eyes: Conjunctivae/corneas clear. No icterus. No ptosis. Neck: intubated Oral: intubated Cardiovascular: S1, S2 + Respiratory: AE fair bilaterally and equal GI: Soft, bowel sounds + Musculoskeletal: No pedal edema, no cyanosis. Skin: No rash or abscess Hem/Lymphatic: No palpable cervical or supraclavicular nodes. No lymphangitis Psych: no agitation Neurological: opens eyes, intubated, on the vent, exam limited - Constitutional Vitals: Vital Signs Temp Pulse Resp BP Pulse Ox 100 F H 68 41 H 118/79 98 02/14/22 12:00 05/30/21 11:30 05/30/21 12:00 05/30/21 11:30 05/30/21 11:30 Temperature -Last 24 Hours Temperature 100 F Temperature 100.4 F Temperature 100.2 F Temperature 99.9 F Temperature 99.5 F Temperature 99.5 F - Labs CBC & Chem 7: 05/29/21 11:16 05/30/21 05:07 Labs: Abnormal lab results 05/29/21 05/29/21 05/30/21 Range/Units 17:25 23:26 05:07 BUN 55 H (9-20) mg/dL Creatinine 1.5 H (0.8-1.3) mg/dL Glucose 129 H (75-100) mg/dL POC Glucose 115 H 110 H (70-105) mg/dL Calcium 8.2 L (8.4-10.2) mg/dL 05/30/21 05/30/21 Range/Units 05:11 11:30 BUN (9-20) mg/dL Creatinine (0.8-1.3) mg/dL Glucose (75-100) mg/dL POC Glucose 113 H 110 H (70-105) mg/dL Calcium (8.4-10.2) mg/dL
[2021-05-30] MEDS: fentaNYL DRIP Premix 2,000 MCG/100 ML BAG IV SCH (17:49)
[2021-05-30] MEDS ORDERED: QUEtiapine 100 MG TAB PO SCH (22:00)
--- NOTE | 2021-05-30 23:52 | Vascular Lab Report ---
DUPLEX DOPPLER UPPER EXTREMITY VENOUS, LEFT INDICATION / CLINICAL INFORMATION: Swelling LUE. TECHNIQUE: Duplex doppler imaging was performed through the veins of the left upper extremity using v enous compression and other maneuvers. COMPARISON: None available. FINDINGS: LEFT INTERNAL JUGULAR VEIN: Negative. LEFT SUBCLAVIAN VEIN: Negative. LEFT AXILLARY VEIN: Negative. LEFT BRACHIAL VEIN: Negative. LEFT FOREARM VEINS: Negative. LEFT BASILIC VEIN AND CEPHALIC VEIN (SUPERFICIAL): Positive ADDITIONAL FINDINGS: None. IMPRESSION: 1. No sonographic evidence for DVT. Positive for superficial venous thrombosis in the left cephalic and basilic veins. Signer Name: Royer Guajardo Jr, MD Signed: 05/30/2021 11:18 AM Workstation Name: [id number]
--- NOTE | 2021-05-30 23:53 | XRay Report ---
CHEST 1 VIEW 05/30/2021 4:28 PM INDICATION / CLINICAL INFORMATION: Dyspnea. COMPARISON: 05/26/21. FINDINGS: SUPPORT DEVICES: The positions of the nasogastric and endotracheal tubes have not changed significant ly. HEART / MEDIASTINUM: Unchanged. LUNGS / PLEURA: There is mild bibasilar subsegmental atelectasis, increased. No pneumothorax. ADDITIONAL FINDINGS: No significant additional findings. IMPRESSION: Mild bibasilar subsegmental atelectasis has increased. Signer Name: Anderson Harrison MD Signed: 05/30/2021 5:21 PM Workstation Name: [id number]
[2021-05-31] MEDS: QUEtiapine 25 MG TAB PO SCH ×3 (00:55→21:16)
[2021-05-31 05:10] LABS: Hematocrit 28.8 % (35.5-45.6); Hemoglobin 9.3 gm/dl (11.8-15.2); Mean Corpuscular HGB Conc 32 % (32-34); Mean Corpuscular Volume 92 fl (84-94); Platelet Count 413 K/mm3 (140-440); Red Blood Count 3.12 M/mm3 (3.65-5.03); Red Cell Distribution Width 16.1 % (13.2-15.2)
[2021-05-31] MEDS: hydrALAZINE 25 MG TAB PO SCH ×3 (05:46→21:15)
--- NOTE | 2021-05-31 09:49 | Progress Note ---
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 --SCr 1.0mg/dL in August 2020 * Acute hypoxic respiratory failure * Atrial fibrillation * Cardiomyopathy * NSTEMI * COVID 19 infection * Hepatitis C * Hypertension * Anemia * Metabolic acidosis * Methamphetamine abuse * Transaminitis Plan: * Renal function is stable - SCr 1.4mg/dL today * Lytes are stable - hyperK and hyperNa resolved * Renal ultrasound reviewed - will need follow up CT once stable * Continue antiHTN medications * Cardiology recommendations noted * Dose medications for renal function * Avoid potential nephrotoxins * Strict I/O Subjective Date of service: 05/31/21 Principal diagnosis: AHRF; COVID-19 infection; NSTEMI; YE; HFrEF (35-40%); Polysubstance abuse Interval history: Remains intubated - PS trial 16, PEEP 8, FiO2 25% Objective - Vital Signs Vital signs: Vital Signs - 12hr 05/30/21 05/30/21 05/30/21 22:00 23:00 23:21 Temperature Pulse Rate 63 61 61 Pulse Rate [ From Monitor] Respiratory 22 18 24 Rate Blood Pressure 124/79 119/77 119/77 O2 Sat by Pulse 98 96 98 Oximetry 05/30/21 05/30/21 05/31/21 23:28 23:49 00:00 Temperature 97.8 F Pulse Rate 63 61 60 Pulse Rate [ 62 From Monitor] Respiratory 22 17 Rate Blood Pressure 121/79 117/78 O2 Sat by Pulse 99 98 98 Oximetry 05/31/21 05/31/21 05/31/21 01:00 02:00 03:00 Temperature Pulse Rate 62 64 62 Pulse Rate [ From Monitor] Respiratory 20 18 19 Rate Blood Pressure 120/79 118/82 119/81 O2 Sat by Pulse 100 100 Oximetry 05/31/21 05/31/21 05/31/21 03:14 04:00 04:28 Temperature 98.2 F Pulse Rate 62 66 68 Pulse Rate [ 70 From Monitor] Respiratory 9 L Rate Blood Pressure 122/81 122/81 O2 Sat by Pulse 99 98 Oximetry 05/31/21 05/31/21 05/31/21 05:00 06:00 07:00 Temperature Pulse Rate 66 71 71 Pulse Rate [ From Monitor] Respiratory 20 29 H 24 Rate Blood Pressure 117/81 117/84 124/79 O2 Sat by Pulse 97 97 Oximetry 05/31/21 05/31/21 05/31/21 07:11 08:00 08:32 Temperature 98.4 F Pulse Rate 72 76 Pulse Rate [ 75 From Monitor] Respiratory 14 Rate Blood Pressure 124/79 110/85 O2 Sat by Pulse 98 99 Oximetry 05/31/21 09:00 Temperature Pulse Rate 76 Pulse Rate [ From Monitor] Respiratory 16 Rate Blood Pressure 127/86 O2 Sat by Pulse 96 Oximetry - General Appearance General appearance: well-developed, well-nourished, intubated EENT: ATNC, other (ETT in place) Respiratory: Present: Other (coarse ) Cardiology: regular, S1S2 Gastrointestinal: normal, no tenderness, no distended Integumentary: no rash, warm and dry Psychiatric: cooperative - Lab 05/31/21 04:11 05/31/21 04:11 Most recent lab results ABG pH 7.443 pH Units (7.350-7.450) 05/27/21 09:20 ABG pCO2 38.8 mm Hg 05/27/21 09:20 ABG pO2 115.2 mm Hg (80.0-90.0) H 05/27/21 09:20 ABG HCO3 25.9 mmol/L (20.0-26.0) 05/27/21 09:20 ABG O2 Saturation 98.3 % (95.0-99.0) 05/27/21 09:20 Calcium 8.0 mg/dL (8.4-10.2) L 05/31/21 04:11 Phosphorus 3.20 mg/dL (2.5-4.5) 05/30/21 05:07 Magnesium 2.10 mg/dL (1.7-2.3) 05/30/21 05:07 Urine Creatinine 100.1 mg/dL (0.1-20.0) H 05/23/21 16:30 Urine Sodium 25 mmol/L 05/23/21 16:30 Urine Total Protein 42 mg/dL (5-11.8) H 05/10/21 11:03 Medications & Allergies - Medications Allergies/Adverse Reactions: Allergies No Known Allergies Allergy (Verified 05/08/21 07:47) Home Medications: Home Medications Medication Instructions Recorded Confirmed Last Taken Type Cefpodoxime Proxetil 200 mg PO Q12H #10 tablet 09/11/20 05/19/21 Unknown Rx Famotidine [Pepcid] 20 mg PO BID #30 tablet 04/13/21 05/19/21 Unknown Rx Losartan [Cozaar] 100 mg PO QDAY #60 tablet 04/13/21 05/19/21 Unknown Rx Metoprolol Xl [Metoprolol 25 mg PO QDAY #30 tablet 04/13/21 05/19/21 Unknown Rx SUCCINATE ER TAB] NIFEdipine XL [Procardia Xl] 60 mg PO Q12HR #60 tablet 04/13/21 05/19/21 Unknown Rx hydrALAZINE [Apresoline TAB] 50 mg PO Q8HR #180 tablet 04/13/21 05/19/21 Unknown Rx Active Medications: Generic Name Dose Route Start Last Admin Trade Name Freq PRN Reason Stop Dose Admin Acetaminophen 650 mg 05/04/21 12:34 05/30/21 09:30 Acetaminophen 325 Mg Tab PO 650 mg Q4H PRN Administration Pain MILD(1-3)/Fever >100.5/MARIA Acetaminophen 650 mg 05/07/21 16:00 05/11/21 16:25 Acetaminophen 650 Mg Rect Supp HI 650 mg Q4H PRN Administration Pain, Mild (1-3) Atorvastatin Calcium 40 mg 05/09/21 22:00 05/30/21 21:16 Atorvastatin 40 Mg Tab FEEDTUBE 40 mg QHS RISHI Administration Dextrose 0 ml 05/09/21 10:49 05/14/21 06:55 Dextrose 10% *Hypoglycemia IV 250 ml PRN PRN Administration Hypoglycemia Fentanyl 50 mcg 05/23/21 15:00 Fentanyl 100 Mcg/2 Ml Inj IV Q10MIN PRN ANALGESIA Haloperidol Lactate 5 mg 05/09/21 18:32 05/18/21 19:52 Haloperidol Lactate 5 Mg/1 Ml Inj IV 5 mg Q6H PRN Administration Agitation Heparin Sodium (Porcine) 5,000 unit 05/27/21 22:00 05/30/21 21:16 Heparin 5,000 Unit/1 Ml Vial SUB-Q 5,000 unit Q12HR RISHI Administration Hydralazine HCl 50 mg 05/04/21 14:00 05/31/21 05:46 Hydralazine 25 Mg Tab PO 50 mg Q8HR RISHI Administration Hydrophilic Ointment 1 applic 05/05/21 15:21 Lip Therapy Vaseline TP Q2HR PRN Dry Lips Fentanyl Citrate 2,000 mcg in 100 mls @ 4.082 mls/hr 05/23/21 15:00 05/30/21 17:49 Fentanyl Drip Premix IV 0.5 mcg/kg/hr TITR RISHI 2.041 mls/hr Administration Protocol 1 MCG/KG/HR Ertapenem 1 gm/ Sodium 50 mls @ 100 mls/hr 05/26/21 14:00 05/30/21 09:30 Chloride IV 06/01/21 10:29 100 mls/hr QDAY RISHI Administration Insulin Human Lispro 0 unit 05/10/21 09:40 05/12/21 16:49 Insulin Lispro 100 Unit/Ml SUB-Q 2 unit Q6HR PRN Administration Hyperglycemia Protocol Labetalol HCl 10 mg 05/15/21 10:24 05/25/21 08:15 Labetalol 20 Mg/4 Ml Inj IV 10 mg Q4H PRN Administration sbp> 160. Lansoprazole 30 mg 05/26/21 10:00 05/30/21 21:16 Lansoprazole 30 Mg Solutab FEEDTUBE 30 mg BID RISHI Administration Metoprolol Tartrate 50 mg 05/26/21 08:00 05/30/21 20:26 Metoprolol Tartrate 25 Mg Tab FEEDTUBE 50 mg TID RISHI Administration Multi-Ingred Cream/Lotion/Oil/Oint 1 applic 05/05/21 15:21 Mineral Oil/Petrolatum, White Ophth Oint 3.5 Gm OU Q4HR PRN Dry Eye(s) Ondansetron HCl 4 mg 05/04/21 12:34 05/04/21 21:51 Ondansetron 4 Mg/2 Ml Inj IV 4 mg Q8H PRN Administration Nausea And Vomiting Oxycodone HCl 5 mg 05/30/21 11:00 05/30/21 14:55 Oxycodone 5 Mg Tab PO 5 mg Q6H PRN Administration Pain, Moderate (4-6) Polyethylene Glycol 17 gm 05/26/21 22:00 05/30/21 21:16 Polyethylene Glycol 3350 17 Gm Powder PO 17 gm QHS RISHI Administration Quetiapine Fumarate 50 mg 05/30/21 22:00 05/31/21 00:55 Quetiapine 25 Mg Tab PO Not Given BID RISHI Senna/Docusate Sodium 1 tab 05/05/21 22:00 05/30/21 21:16 Sennosides/Docusate Sodium 8.6/50 Mg Tab FEEDTUBE 1 tab BID RISHI Administration Sodium Chloride 10 ml 05/04/21 22:00 05/30/21 21:17 Sodium Chloride 0.9% 10 Ml Flush Syringe IV 10 ml BID RISHI Administration Sodium Chloride 10 ml 05/04/21 12:34 05/06/21 13:59 Sodium Chloride 0.9% 10 Ml Flush Syringe IV 10 ml PRN PRN Administration LINE FLUSH Sodium Chloride 10 ml 05/09/21 09:46 Sodium Chloride 0.9% 50 Ml Ivpb IV PRN PRN FLUSH
[2021-05-31] MEDS: LANSOPRAZOLE 30 MG SOLUTAB FEEDTUBE SCH ×2 (10:45→21:15)
[2021-05-31] MEDS: ERTAPENEM 1 GM in SODIUM CHLORIDE 0.9% 50 ML IV SCH (10:45)
[2021-05-31] MEDS: SENNOSIDES/DOCUSATE SODIUM 8.6/50 MG TAB FEEDTUBE SCH ×2 (10:45→21:15)
[2021-05-31] MEDS: HEPARIN 5,000 UNIT/1 ML VIAL SUB-Q SCH ×2 (10:45→21:15)
[2021-05-31] MEDS: METOPROLOL TARTRATE 25 MG TAB FEEDTUBE SCH ×3 (10:45→20:16)
--- NOTE | 2021-05-31 10:55 | Progress Note ---
<JANUSZ PETERSEN - Last Filed: 05/31/21 16:25> Assessment and Plan Assessment and plan: This is a homeless 56-year-old male with past medical history of nicotine and cocaine abuse, atrial fibrillation, hypertension and chronic medication noncompliance admitted for acute hypoxic respiratory failure 2/2 COVID pneumonia s/p X3 intubation. Remains in the ICU on ventilatory support. Hospital Course to Date: 05/04/2021. Cardiology was considering patient for Plan Checker. However, patient with elevated creatinine therefore will hold off on cath evaluation. Nephrology consultation for acute kidney injury. Etiology likely secondary to vasomotor nephropathy/dehydration. We will start IV fluid hydration. Check renal ultrasound to rule out obstructive uropathy. We will resume home medications for the accelerated hypertension 05/05/2021. Echocardiogram reveals EF 35-40% with moderate concentric left ventricular hypertrophy. Moderate global hypokinesis of left ventricle. Mild mitral regurgitation. Mild pulmonary hypertension. Troponins are believed to be elevated in the setting of acute kidney injury. No beta-blockers due to cocaine use continue heparin and nitro drip. Continue CIWA protocol. Await urine studies 05/06/2021. Patient decompensated yesterday with worsening respiratory failure and difficulty to protect airway. Patient was breathing sonorously, and hypoxic. Patient was intubated and currently is on mechanical ventilation. Patient with AC mode ventilation rate of 20, tidal volume 450, FiO2 40% and PEEP of 6. COVID PCR testing on 05/05/2021 was found to be positive. Echocardiogram completed on this admission shows worsening EF from August 2020. Echocardiogram now reveals moderate concentric left ventricular hypertrophy with moderate global hypokinesis and EF of 35-40%. Mild pulmonary hypertension. 05/08: Continue current management, renal stable, LFTs stable and if improved will start on statin therapy. 05/09: Patient is febrile, will panculture, PSV today. CRP pending. Mucoid discharge noted from meatus which was sent for culture. Hypernatremia persists, free water flushes increased 05/10: PSV trial per CCM, T-max 102.3, given mildly elevated procalcitonin started on ceftriaxone 2 g every 24 for 2 days per ID. Overnight patient had atrial fibrillation which was treated with Cardizem drip and converted to sinus rhythm. Metoprolol p.o. increased to 3 times daily. 05/11: Patient still running fevers and if still febrile tomorrow will escalate to cefepime per ID as he is currently on ceftriaxone, CCM attempted PSV but patient became agitated and was switched back to pressure control. Lower extremity ultrasound shows acute DVT and started on heparin drip. Started on scheduled Librium. Patient remains with hypernatremia and elevated creatinine and on IV fluids. Free water flushes adjusted. Started on vancomycin today 05/12: Patient placed on pressure support trial without fentanyl, hypernatremia improving, hyperkalemia noted. Slight improvement to renal function. 05/13: Patient was extubated today, ID change antibiotics to Zosyn for Enterococcus, was started tapering Librium in the morning, renal function slightly improved. Possible transfer to floor tomorrow. ST evaluation for swallow ordered. 05/14: Patient became hypoglycemic overnight and started on dextrose IV fluids. Accu-Chek fingersticks have been low but on a.m. BMP patient blood glucose is 100. Other BMP pending. Feeding tube replaced due to need for enteral access and patient being severely confused. Renal functions remains the same. Upon confirmation will restart tube feedings, p.o. medications and free water flushes. 05/15: Remains confused/somnolent on my encounter. Librium taper in 24hrs per PCCM recs. Remains hypertensive. Added amlodipine 10 mg NG and labetalol prn. ST eval today but doubt he will participate. Potassium replaced. Renal function improving overall, however, hypernatremic. Inc TF FWF to 250 cc q4hr. 05/16: Respiratory distress this AM, hypoxic in 60's not protecting airway. Required intubation, patient now ICU patient. Reduce fluid to FWF only, IVF d/c off jun. CXR ordered demonstrates pulmonary edema. Lasix 40 mg IV bid ordered. Troponin elevated, continue heparin gtt. Would recommend decreasing sedating medications at this point, agree with librium taper. 05/17: Patient remains on the vent and sedated, RASS -3. Plan for possible sedation vacation today. D/w CCM plan to wean for possible extubation on the v ent. 2: Tolerated 4hrs of sedation vacation yesterday, on low dose fentanyl this am. Patient is tolerating PST this am. Plan to wean off sedation and wean vent setting for possible extubation today. 2/3: s/p extubation now stable on 3L NC. Lethargic this am, will decreased Seroquel. Speech consult for swallow eval, continue enteral nutrition via NGT for now. Hypertensive throughout the night, Norvac added. Remains on heparin gtt for DVT, might need to transition to PO AC, will d/w CCM. Patient is stable for transfer to [facility] 05/20: Continue sepsis work up considering fever, aspiration precautions. Discussed with nursing staff will hold am seroquel. Continue tube feed. RENAL Function remains relatively stable, possible has peaked. 05/21: Patient seen and examined, resting but still with mild increase wob, CXR concerning with right lobar infiltrate, continue antibiotics, will give kayxalate in addition due to hyperkalemia, Will discuss with ID due to rising lobito ekocytosis possible worsening sepsis. 05/22: Patient remains on BIPAP, still sedated appearing, cxr concerning for possible aspiration, unfortunately still worsening renal status. Will continue abx and continue collaboration with pulmonary team to ensure no over sedation. Continue abx, will add kayaxlate 05/23: Patient noted to have severe anemia today, will initiate GI work up and also Hemolysis work up. Will discuss with Vascular about possible IVC filter placement. Continue BIPAP, goal is to see if we can avert re-intubation. Transfuse 1 UNIT PRBC, Will discuss with Pulmonary about holding Eliquis for now. Renal failure still ongoing. 05/24: Patient had a positive occult and was anemic again today and received PRBC. GI was consulted. Repeat Dopplers are negative for DVT vascular recommends a CT/SQ heparin if tolerated and nephrology would like to increase IV fluids per FeNa results. Decrease metoprolol, seroquel and librium. surgery consult for trach/peg 05/25: RT decreased FiO2. GI signed off, Cr slightly improved, Anemia improved. Tmax 101.4 noted, abx per ID. 05/26: Patient had a temperature spike and was recultured, no plan today changes made as patient continues to breathe over the vent, one time dose of fent patch, repeat dopllar in 1 week per [facility], miralax q hs 05/27: Added vancomycin per ID, started CPAP trials, prophylactic heparin, IV fluids stopped per ID. 05/28: No acute events reported overnight, T-max 100.6, slight improvement to BUN/creatinine. awaiting trach & PEG 05/29: Creatinine continues trending down, remains on minimal vent settings. CPAP as tolerated. 05/30: Patient remains lethargic, opened eyes and tracking this am. Librium will end tonight and decrease seroquel for now. PRN analgesics added for pain management. Patient remains with intermittent fevers, BLE doppler neg for DVT, recent cultures with NGTD, continue current IV abx per ID. LUE swelling noted, LUE doppler pending. Trach and PEG is now on hold, case management is trying to get in contact with a living relative for consent. 05/31: Low dose sedation initiated yesterday due to increase work of breathing and high RR. Patient is stable this am, appears comfortable, tolerating PST. LUE doppler noted with superficial thrombosis in the left cephalic and basilic veins, continue AC- heparin SubQ. Assessment and Plan #Neuro: Metabolic encephalopathy #Polysubstance Abuse -UDS positive for amphetamines -On CIWA protocol -Librium end tonight -Seroquel decreased -Monitor QTc -Avoid delirium -PRN analgesia added for pain management -We will need cessation counseling when appropriate #Cardio:Heart failure reduced EF #Cardiomyopathy #Paroxysmal atrial fibrillation #S/p hypertensive emergency, h/o HTN -Continue beta-sylvia, aspirin, statin, hydral, titrate as needed -Cardiology consulted, appreciate recommendations -Echo 05/04/2021-EF 35 to 40%. Moderate concentric LVH. Moderate global hypokinesis of left ventricle. Mild mitral regurgitation. Mild pulmonary hypertension. -Echocardiogram reviewed (08/27/2020): LVEF is 50 to 55%. Mild to moderate concentric LVF. Severe diastolic dysfunction is present (restrictive filling). Right ventricle is mildly hypokinetic. RVSP is 48 mmHg. No valvular abnormal ities. -S/p Cardizem drip for atrial fibrillation -Blood pressure monitoring per protocol #Respiratory:Acute Hypoxic respiratory failure -S/p X3 intubation -CCM consulted, appreciate recommendations -Intubated on 05/05 in the ED and extubated 05/13, Re-intubated on 05/16 and Extubated on 05/18 -Reintubated 05/23 -Vent setting: PRVC-25%,8,16,450 -CCM consulted, appreciate recommendations -VAP bundle addressed -Aspiration precaution HOB above 30 -Daily SBT and SAT trials as tolerated -PRN ABG and CXR per CCM -Continue SPO2 monitoring for SPO2 goal above 92% -Need to be trach and PEG- Currently on hold, trying to get in contact with a living relative for consent #Acute kidney injury likely secondary to vasomotor nephropathy -Nephrology consulted, appreciate recommendations -Renal ultrasound completed: 1.7 hyper echoic mass within the left upper pole, continue to monitor and follow-up with CT once stable -Strict intake and output -Avoid nephrotoxic medications; Renally dose medications -Monitor and replace electrolytes as needed -Trend BMP #Transaminitis, h/o hepatitis C -LFT with some mild improvement -Continue to trend LFTs #ID:Severe COVID-19 pneumonia, Enterobacter aerogenes PNA, s/p Enterococcus faecalis UTI -Infectious disease consulted, appreciate recommendations -COVID-19 PCR positive -s/p droplet/precautions for 21 days -Not a candidate for remdesivir given acute kidney injury -s/p Dexamethasone for 10 days -Anticoagulation per hospital protocol -Trend COVID-19 from 2 markers (ferritin, D-dimer, CRP, LDH) -05/09 urine culture with Enterococcus faecalis -05/16 tracheal aspirate with Enterobacter aerogenes -per ID Due to persistent fevers switched cefepime to IV ertapenem renally adjusted 05/24 -GC negative -f/u culture data -re-cultured 05/26 #Heme: Anemia, Acute DVT (resolved) -Bilateral lower extremity Doppler ultrasound shows acute DVT -heparin gtt converted to DOAC but now d/c -vascular surgery consulted for possible IVC filter placement, appreciate recommendations -repeat doppler shows no DVT -05/30 LUE doppler noted with superficial thrombosis in the left cephalic and basilic veins -subq heparin for prophylaxis -Pulmonary perfusion study showed low probability of pulmonary embolism -S/p 3 unit PRBC -Trend CBC -Transfuse for hemoglobin less than 7 The high probability of a clinically significant, sudden or life threatening deterioration of the [cardio/resp] system(s) required my full and direct attention, intervention and personal management. The aggregate critical care time was [60] minutes. This time is in addition to time spent performing reported procedures but includes the following: [x] Data Review and interpretation [x] Patient assessment and monitoring of vital signs [x] Documentation [x] Medication orders and management Disposition Plan: ICU Total Time Spent with Patient (Minutes): 60 History Interval history: Patient seen and examined at the bedside. Remains intubated and on low dose fentanyl gtt this am. Sedation was initiated yesterday due to increased work of breathing and elevated RR. Patient appears a lot more comfortable this am, easily arousable, tracking and following simple commands this am. HUSSEIN overnight. Hospitalist Physical - Constitutional Vitals: Temp Pulse Resp BP Pulse Ox 98.4 F 79 16 126/79 96 05/31/21 08:32 05/31/21 10:45 05/31/21 09:00 05/31/21 10:45 05/31/21 09:00 General appearance: Present: no acute distress, other (Intubated) - EENT Eyes: Present: PERRL ENT: hearing intact - Neck Neck: Present: normal ROM - Respiratory Respiratory effort: normal Respiratory: bilateral: rhonchi - Cardiovascular Rhythm: regular Heart Sounds: Present: S1 & S2 - Extremities Extremities: no ischemia, pulses intact, pulses symmetrical Extremity abnormal: edema - Peripheral Assessment Generalized Edema Type: Non-pitting Edema Degree: 2+ Skin Temperature: Warm - Abdominal General gastrointestinal: soft, non-distended, normal bowel sounds - Integumentary Integumentary: Present: warm, dry - Psychiatric Psychiatric: appropriate mood/affect, cooperative - Neurologic Neurologic: moves all extremities, other (On low dose sedation, RASS 0 to -1) - Allied Health Allied health notes reviewed: nursing, case management HEART Score - HEART Score EKG: Non-specific Age: 45-65 Risk factors: 1-2 risk factors Troponin: Troponin T 0.400 ng/mL (0.00-0.029) H* D 05/16/21 18:40 Troponin: 1-3x normal limit - Critical Actions Critical Actions: 4-6 pts:12-16.6% risk of adverse cardiac event. Should be admitted Results - Labs CBC & Chem 7: 05/31/21 04:11 05/31/21 04:11 Labs: Laboratory Last Values WBC 9.1 K/mm3 (4.5-11.0) 05/31/21 04:11 RBC 3.12 M/mm3 (3.65-5.03) L 05/31/21 04:11 Hgb 9.3 gm/dl (11.8-15.2) L 05/31/21 04:11 Hct 28.8 % (35.5-45.6) L 05/31/21 04:11 MCV 92 fl (84-94) 05/31/21 04:11 MCH 30 pg (28-32) 05/31/21 04:11 MCHC 32 % (32-34) 05/31/21 04:11 RDW 16.1 % (13.2-15.2) H 05/31/21 04:11 Plt Count 413 K/mm3 (140-440) 05/31/21 04:11 Lymph % (Auto) [employer] 05/16/21 10:21 Starr % (Auto) [employer] 05/16/21 10:21 Eos % (Auto) [employer] 05/16/21 10:21 Baso % (Auto) [employer] 05/16/21 10:21 Lymph # (Auto) [employer] 05/16/21 10:21 Starr # (Auto) [employer] 05/16/21 10:21 Eos # (Auto) [employer] 05/16/21 10:21 Baso # (Auto) [employer] 05/16/21 10:21 Add Manual Diff Complete 05/28/21 04:04 Total Counted 100 05/28/21 04:04 Seg Neutrophils % [employer] 05/16/21 10:21 Seg Neuts % (Manual) 93.0 % (40.0-70.0) H 05/28/21 04:04 Band Neutrophils % 1.0 % 05/28/21 04:04 Lymphocytes % (Manual) 2.0 % (13.4-35.0) L 05/28/21 04:04 Reactive Lymphs % (Man) 0 % 05/28/21 04:04 Monocytes % (Manual) 4.0 % (0.0-7.3) 05/28/21 04:04 Eosinophils % (Manual) 0 % (0.0-4.3) 05/28/21 04:04 Basophils % (Manual) 0 % (0.0-1.8) 05/28/21 04:04 Metamyelocytes % 0 % 05/28/21 04:04 Myelocytes % 0 % 05/28/21 04:04 Promyelocytes % 0 % 05/28/21 04:04 Blast Cells % 0 % 05/28/21 04:04 Nucleated RBC % Not Reportable 05/28/21 04:04 Seg Neutrophils # [employer] 05/16/21 10:21 Seg Neutrophils # Man 13.1 K/mm3 (1.8-7.7) H 05/28/21 04:04 Band Neutrophils # 0.1 K/mm3 05/28/21 04:04 Lymphocytes # (Manual) 0.3 K/mm3 (1.2-5.4) L 05/28/21 04:04 Abs React Lymphs (Man) 0.0 K/mm3 05/28/21 04:04 Monocytes # (Manual) 0.6 K/mm3 (0.0-0.8) 05/28/21 04:04 Eosinophils # (Manual) 0.0 K/mm3 (0.0-0.4) 05/28/21 04:04 Basophils # (Manual) 0.0 K/mm3 (0.0-0.1) 05/28/21 04:04 Metamyelocytes # 0.0 K/mm3 05/28/21 04:04 Myelocytes # 0.0 K/mm3 05/28/21 04:04 Promyelocytes # 0.0 K/mm3 05/28/21 04:04 Blast Cells # 0.0 K/mm3 05/28/21 04:04 WBC Morphology Not Reportable 05/28/21 04:04 Hypersegmented Neuts Not Reportable 05/28/21 04:04 Hyposegmented Neuts Not Reportable 05/28/21 04:04 Hypogranular Neuts Not Reportable 05/28/21 04:04 Smudge Cells Not Reportable 05/28/21 04:04 Toxic Granulation Not Reportable 05/28/21 04:04 Toxic Vacuolation Not Reportable 05/28/21 04:04 Dohle Bodies Not Reportable 05/28/21 04:04 Pelger-Huet Anomaly Not Reportable 05/28/21 04:04 Jesse Rods Not Reportable 05/28/21 04:04 Platelet Estimate Consistent w auto 05/28/21 04:04 Clumped Platelets Not Reportable 05/28/21 04:04 Plt Clumps, EDTA Not Reportable 05/28/21 04:04 Large Platelets Not Reportable 05/28/21 04:04 Giant Platelets Not Reportable 05/28/21 04:04 Platelet Satelliting Not Reportable 05/28/21 04:04 Plt Morphology Comment Not Reportable 05/28/21 04:04 RBC Morphology Not Reportable 05/28/21 04:04 Dimorphic RBCs Not Reportable 05/28/21 04:04 Polychromasia Not Reportable 05/28/21 04:04 Hypochromasia Not Reportable 05/28/21 04:04 Poikilocytosis Not Reportable 05/28/21 04:04 Anisocytosis 1+ 05/28/21 04:04 Microcytosis Not Reportable 05/28/21 04:04 Macrocytosis Not Reportable 05/28/21 04:04 Spherocytes Not Reportable 05/28/21 04:04 Pappenheimer Bodies Not Reportable 05/28/21 04:04 Sickle Cells Not Reportable 05/28/21 04:04 Target Cells Not Reportable 05/28/21 04:04 Tear Drop Cells Not Reportable 05/28/21 04:04 Ovalocytes Not Reportable 05/28/21 04:04 Helmet Cells Not Reportable 05/28/21 04:04 Murphy-Timonium Bodies Not Reportable 05/28/21 04:04 [place] Rings Not Reportable 05/28/21 04:04 [place] Cells Not Reportable 05/28/21 04:04 Bite Cells Not Reportable 05/28/21 04:04 Crenated Cell Not Reportable 05/28/21 04:04 Elliptocytes Not Reportable 05/28/21 04:04 Acanthocytes (Spur) Not Reportable 05/28/21 04:04 Rouleaux Not Reportable 05/28/21 04:04 Hemoglobin C Crystals Not Reportable 05/28/21 04:04 Schistocytes Not Reportable 05/28/21 04:04 Malaria parasites Not Reportable 05/28/21 04:04 Tomi Bodies Not Reportable 05/28/21 04:04 Haptoglobin 254 mg/dL (43-212) H 05/23/21 18:54 Hem Pathologist Commnt No 05/28/21 04:04 PT 14.9 Sec. (12.2-14.9) 05/25/21 04:25 INR 1.05 (0.87-1.13) 05/25/21 04:25 APTT 72.5 Sec. (24.2-36.6) H* 05/19/21 19:36 D-Dimer 2730.61 ng/mlDDU (0-234) H 05/12/21 07:19 Heparin Anti-Xa Level 0.47 U.I./ml (0.3-0.7) 05/19/21 05:23 ABG pH 7.443 pH Units (7.350-7.450) 05/27/21 09:20 ABG pCO2 38.8 mm Hg 05/27/21 09:20 ABG pO2 115.2 mm Hg (80.0-90.0) H 05/27/21 09:20 ABG HCO3 25.9 mmol/L (20.0-26.0) 05/27/21 09:20 ABG O2 Saturation 98.3 % (95.0-99.0) 05/27/21 09:20 ABG O2 Content 12.5 (0.0-44) 05/27/21 09:20 ABG Base Excess 1.7 mmol/L (-2.0-3.0) 05/27/21 09:20 ABG Hemoglobin 9.2 gm/dl (14.0-18.0) L 05/27/21 09:20 ABG Carboxyhemoglobin 2.2 % (0.0-5.0) 05/27/21 09:20 ABG Methemoglobin 0.7 % (0.0-1.5) 05/27/21 09:20 Oxyhemoglobin 95.4 % (95.0-99.0) 05/27/21 09:20 FiO2 30 % 05/27/21 09:20 Sodium 141 mmol/L (137-145) 05/31/21 04:11 Potassium 4.0 mmol/L (3.6-5.0) 05/31/21 04:11 Chloride 106.3 mmol/L (98-107) 05/31/21 04:11 Carbon Dioxide 26 mmol/L (22-30) 05/31/21 04:11 Anion Gap 13 mmol/L 05/31/21 04:11 BUN 50 mg/dL (9-20) H 05/31/21 04:11 Creatinine 1.4 mg/dL (0.8-1.3) H 05/31/21 04:11 Estimated GFR 52 ml/min 05/31/21 04:11 BUN/Creatinine Ratio 36 % 05/31/21 04:11 Glucose 117 mg/dL (75-100) H 05/31/21 04:11 POC Glucose 102 mg/dL (70-105) 05/31/21 00:39 Lactic Acid 0.90 mmol/L (0.7-2.0) 05/20/21 09:17 Calcium 8.0 mg/dL (8.4-10.2) L 05/31/21 04:11 Phosphorus 3.20 mg/dL (2.5-4.5) 05/30/21 05:07 Magnesium 2.10 mg/dL (1.7-2.3) 05/30/21 05:07 Iron 10 ug/dL (49-181) L 05/23/21 Unknown TIBC 151 mcg/dL (250-450) L 05/23/21 Unknown Ferritin 640.2 ng/mL (30.0-300.0) H 05/12/21 07:19 Total Bilirubin 0.50 mg/dL (0.1-1.2) 05/24/21 04:11 AST 152 units/L (5-40) H 05/24/21 04:11 ALT 125 units/L (7-56) H 05/24/21 04:11 Alkaline Phosphatase 72 units/L (35-129) 05/24/21 04:11 Lactate Dehydrogenase 311 units/L (91-180) H 05/23/21 Unknown Total Creatine Kinase 406 units/L (55-170) H 05/04/21 08:42 Troponin T 0.400 ng/mL (0.00-0.029) H* D 05/16/21 18:40 C-Reactive Protein 13.20 mg/dL (0.00-1.30) H 05/28/21 04:04 Total Protein 6.6 g/dL (6.3-8.2) 05/24/21 04:11 Albumin 2.5 g/dL (3.9-5) L 05/24/21 04:11 Albumin/Globulin Ratio 0.6 % 05/24/21 04:11 Triglycerides 144 mg/dL (2-149) 05/10/21 04:57 Cholesterol 140 mg/dL (50-199) 05/04/21 07:25 LDL Cholesterol Direct 89 mg/dL (50-130) 05/04/21 07:25 HDL Cholesterol 48 mg/dL (40-59) 05/04/21 07:25 Cholesterol/HDL Ratio 2.91 % 05/04/21 07:25 Procalcitonin 0.63 ng/mL (<0.15) 05/09/21 15:53 Urine Color Yellow (Yellow) 05/26/21 09:50 Urine Turbidity Turbid (Clear) 05/26/21 09:50 Urine pH 5.0 (5.0-7.0) 05/26/21 09:50 Ur Specific [place] 1.014 (1.003-1.030) 05/26/21 09:50 Urine Protein 30 mg/dl mg/dL (Negative) 05/26/21 09:50 Urine Glucose (UA) Neg mg/dL (Negative) 05/26/21 09:50 Urine Ketones Neg mg/dL (Negative) 05/26/21 09:50 Urine Blood Sm (Negative) 05/26/21 09:50 Urine Nitrite Neg (Negative) 05/26/21 09:50 Urine Bilirubin Neg (Negative) 05/26/21 09:50 Urine Urobilinogen < 2.0 mg/dL (<2.0) 05/26/21 09:50 Ur Leukocyte Esterase Tr (Negative) 05/26/21 09:50 Urine WBC (Auto) 38.0 /HPF (0.0-6.0) H 05/26/21 09:50 Urine RBC (Auto) 5.0 /HPF (0.0-6.0) 05/26/21 09:50 U Epithel Cells (Auto) 1.0 /HPF (0-13.0) 05/23/21 16:30 Urine Bacteria (Auto) 1+ /HPF (Negative) 05/23/21 16:30 Uric Acid Crystals Few 05/09/21 00:40 Triple Phos Crystals 2+ 05/09/21 13:22 Amorphous Crystals 3+ 05/26/21 09:50 Granular Casts 20 /LPF 05/26/21 09:50 Urine Mucus Few /HPF 05/23/21 16:30 Urine Creatinine 100.1 mg/dL (0.1-20.0) H 05/23/21 16:30 Protein/Creatinin Ratio 0.42 05/10/21 11:03 Urine Sodium 25 mmol/L 05/23/21 16:30 Fraction Sodium Excret 0.3 05/23/21 16:30 Urine Total Protein 42 mg/dL (5-11.8) H 05/10/21 11:03 Vancomycin Trough 15.4 ug/mL (5.0-20.0) 05/29/21 14:15 Urine Opiates Screen Negative 05/04/21 Unknown Urine Methadone Screen Negative 05/04/21 Unknown Ur Barbiturates Screen Negative 05/04/21 Unknown Ur Phencyclidine Scrn Negative 05/04/21 Unknown Ur Amphetamines Screen Positive 05/04/21 Unknown U Benzodiazepines Scrn Negative 05/04/21 Unknown Urine Cocaine Screen Negative 05/04/21 Unknown U Marijuana (THC) Screen Negative 05/04/21 Unknown Drugs of Abuse Note Disclamer 05/04/21 Unknown Immunofix Electrophor see below 05/05/21 03:40 AUDRA Screen Negative (Negative) 05/05/21 03:40 Proteinase 3 (PR3) Ab <1.0 AI (<1.0) 05/05/21 03:40 Myeloperoxidase Ab <1.0 AI (<1.0) 05/05/21 03:40 Complement C3 72 mg/dL (82-185) L 05/05/21 03:40 Complement C4 17 mg/dL (15-53) 05/05/21 03:40 Coronavirus (PCR) Positive (Negative) A 05/05/21 08:30 Hepatitis A IgM Ab Non-reactive (NonReactive) 05/05/21 03:40 Hep Bs Antigen Non-reactive (Negative) 05/05/21 03:40 Hep B Core IgM Ab Non-reactive (NonReactive) 05/05/21 03:40 Hepatitis C Antibody Reactive (NonReactive) A 05/05/21 03:40 Blood Type O POSITIVE 05/23/21 07:12 Antibody Screen Negative 05/23/21 07:12 Crossmatch See Detail 05/23/21 07:12 Microbiology: Microbiology 05/26/21 12:59 Peripheral/Venous Blood Culture - Preliminary NO GROWTH AFTER 4 DAYS 05/26/21 12:59 Peripheral/Venous Blood Culture - Preliminary NO GROWTH AFTER 4 DAYS Merino/IV: Voiding Method Indwelling Catheter Active Medications - Current Medications Current Medications: Generic Name Dose Route Start Last Admin Trade Name Freq PRN Reason Stop Dose Admin Acetaminophen 650 mg 05/04/21 12:34 05/30/21 09:30 Acetaminophen 325 Mg Tab PO 650 mg Q4H PRN Administration Pain MILD(1-3)/Fever >100.5/MARIA Acetaminophen 650 mg 05/07/21 16:00 05/11/21 16:25 Acetaminophen 650 Mg Rect Supp PA 650 mg Q4H PRN Administration Pain, Mild (1-3) Atorvastatin Calcium 40 mg 05/09/21 22:00 05/30/21 21:16 Atorvastatin 40 Mg Tab FEEDTUBE 40 mg QHS RISHI Administration Dextrose 0 ml 05/09/21 10:49 05/14/21 06:55 Dextrose 10% *Hypoglycemia IV 250 ml PRN PRN Administration Hypoglycemia Fentanyl 50 mcg 05/23/21 15:00 Fentanyl 100 Mcg/2 Ml Inj IV Q10MIN PRN ANALGESIA Haloperidol Lactate 5 mg 05/09/21 18:32 05/18/21 19:52 Haloperidol Lactate 5 Mg/1 Ml Inj IV 5 mg Q6H PRN Administration Agitation Heparin Sodium (Porcine) 5,000 unit 05/27/21 22:00 05/31/21 10:45 Heparin 5,000 Unit/1 Ml Vial SUB-Q 5,000 unit Q12HR RISHI Administration Hydralazine HCl 50 mg 05/04/21 14:00 05/31/21 05:46 Hydralazine 25 Mg Tab PO 50 mg Q8HR RISHI Administration Hydrophilic Ointment 1 applic 05/05/21 15:21 Lip Therapy Vaseline TP Q2HR PRN Dry Lips Fentanyl Citrate 2,000 mcg in 100 mls @ 4.082 mls/hr 05/23/21 15:00 05/30/21 17:49 Fentanyl Drip Premix IV 0.5 mcg/kg/hr TITR RISHI 2.041 mls/hr Administration Protocol 1 MCG/KG/HR Ertapenem 1 gm/ Sodium 50 mls @ 100 mls/hr 05/26/21 14:00 05/30/21 09:30 Chloride IV 06/01/21 10:29 100 mls/hr QDAY RISHI Administration Insulin Human Lispro 0 unit 05/10/21 09:40 05/12/21 16:49 Insulin Lispro 100 Unit/Ml SUB-Q 2 unit Q6HR PRN Administration Hyperglycemia Protocol Labetalol HCl 10 mg 05/15/21 10:24 05/25/21 08:15 Labetalol 20 Mg/4 Ml Inj IV 10 mg Q4H PRN Administration sbp> 160. Lansoprazole 30 mg 05/26/21 10:00 05/31/21 10:45 Lansoprazole 30 Mg Solutab FEEDTUBE 30 mg BID RISHI Administration Metoprolol Tartrate 50 mg 05/26/21 08:00 05/31/21 10:45 Metoprolol Tartrate 25 Mg Tab FEEDTUBE 50 mg TID RISHI Administration Multi-Ingred Cream/Lotion/Oil/Oint 1 applic 05/05/21 15:21 Mineral Oil/Petrolatum, White Ophth Oint 3.5 Gm OU Q4HR PRN Dry Eye(s) Ondansetron HCl 4 mg 05/04/21 12:34 05/04/21 21:51 Ondansetron 4 Mg/2 Ml Inj IV 4 mg Q8H PRN Administration Nausea And Vomiting Oxycodone HCl 5 mg 05/30/21 11:00 05/30/21 14:55 Oxycodone 5 Mg Tab PO 5 mg Q6H PRN Administration Pain, Moderate (4-6) Polyethylene Glycol 17 gm 05/26/21 22:00 05/30/21 21:16 Polyethylene Glycol 3350 17 Gm Powder PO 17 gm QHS RISHI Administration Quetiapine Fumarate 50 mg 05/30/21 22:00 05/31/21 10:46 Quetiapine 25 Mg Tab PO Not Given BID RISHI Senna/Docusate Sodium 1 tab 05/05/21 22:00 05/31/21 10:45 Sennosides/Docusate Sodium 8.6/50 Mg Tab FEEDTUBE 1 tab BID RISHI Administration Sodium Chloride 10 ml 05/04/21 22:00 05/31/21 10:47 Sodium Chloride 0.9% 10 Ml Flush Syringe IV 10 ml BID RISHI Administration Sodium Chloride 10 ml 05/04/21 12:34 05/06/21 13:59 Sodium Chloride 0.9% 10 Ml Flush Syringe IV 10 ml PRN PRN Administration LINE FLUSH Sodium Chloride 10 ml 05/09/21 09:46 Sodium Chloride 0.9% 50 Ml Ivpb IV PRN PRN FLUSH Nutrition/Malnutrition Assess - Dietary Evaluation Nutrition/Malnutrition Findings: Nutrition Notes Start: 05/05/21 16 :15 Freq: Status: Active Protocol: Document 05/27/21 15:02 ROSAURA (Rec: 05/27/21 15:07 [facility] [id number]) Nutrition Notes Initial or Follow up Reassessment Current Diagnosis Acute Kidney Injury, Hypertension,Heart Failure, Respiratory Failure Other Pertinent Diagnosis Severe COVID-19 pneu, metabolic encephalopathy, polysubstance dependence Current Diet TF - Nepro at 45ml/hr Labs/Tests BUN 56 Cr 1.8 Pertinent Medications Miralax Height 5 ft 7 in Weight 81.647 kg [place] Body Weight (kg) 67.27 BMI 28.1 Weight Status Overweight Subjective/Other Information Pt re-intubated on 05/23; rectal tube in place as well. Trach /PEG placement pending; awaiting family consent. Per RN, pt tolerating TF at goal rate. Percent of energy/protein needs met: 100% energy 89% pro Burn Absent Trauma Absent #1 Nutrition Diagnosis Inadequate oral intake Diagnosis Progress(for reassessment Continues documentation) Is patient on ventilator? Yes Is Patient Ambulatory and/or Out of Bed No REE-([facility]-confined to bed) [phone] Calculation Used for Recommendations [facility] Additional Notes Pro needs 1.2-2g/k-163g/ day Fluid needs 1ml/kcal Nutrition Intervention Nutrition Support: Continue Nepro at 45ml/hr with 200ml water flush q4h. Kcal 1,944 Protein (gm) 87 Carbohydrates (gm) 174 Fat (gm) 104 Fluid (mL) 785 Fiber (gm) 14 Goal #1 TF tolerance Goal #2 TF to meet at least 75% energy and pro needs Follow-Up By: 06/03/21 Additional Comments F/U: vent status, stable TF, trach/PEG placement <VIKRAM SAENZ - Last Filed: 06/01/21 07:23> Assessment and Plan Assessment and plan: I saw and evaluated the patient. I agree with the findings and the plan of care as documented in the Nurse Practitioner's~note, with the following corrections and additions. Hospitalist Physical - Constitutional Vitals: Temp Pulse Resp BP Pulse Ox 98.4 F 75 25 H 133/88 99 06/01/21 07:17 06/01/21 07:00 06/01/21 07:00 06/01/21 07:00 06/01/21 07:00 HEART Score - HEART Score Troponin: Troponin T 0.400 ng/mL (0.00-0.029) H* D 05/16/21 18:40 Results - Labs CBC & Chem 7: 06/01/21 04:56 06/01/21 04:56 Labs: Laboratory Last Values WBC 8.9 K/mm3 (4.5-11.0) 06/01/21 04:56 RBC 3.14 M/mm3 (3.65-5.03) L 06/01/21 04:56 Hgb 9.1 gm/dl (11.8-15.2) L 06/01/21 04:56 Hct 29.0 % (35.5-45.6) L 06/01/21 04:56 MCV 92 fl (84-94) 06/01/21 04:56 MCH 29 pg (28-32) 06/01/21 04:56 MCHC 32 % (32-34) 06/01/21 04:56 RDW 16.3 % (13.2-15.2) H 06/01/21 04:56 Plt Count 440 K/mm3 (140-440) 06/01/21 04:56 Lymph % (Auto) [employer] 05/16/21 10:21 Starr % (Auto) [employer] 05/16/21 10:21 Eos % (Auto) [employer] 05/16/21 10:21 Baso % (Auto) [employer] 05/16/21 10:21 Lymph # (Auto) [employer] 05/16/21 10:21 Starr # (Auto) [employer] 05/16/21 10:21 Eos # (Auto) [employer] 05/16/21 10:21 Baso # (Auto) [employer] 05/16/21 10:21 Add Manual Diff Complete 05/28/21 04:04 Total Counted 100 05/28/21 04:04 Seg Neutrophils % [employer] 05/16/21 10:21 Seg Neuts % (Manual) 93.0 % (40.0-70.0) H 05/28/21 04:04 Band Neutrophils % 1.0 % 05/28/21 04:04 Lymphocytes % (Manual) 2.0 % (13.4-35.0) L 05/28/21 04:04 Reactive Lymphs % (Man) 0 % 05/28/21 04:04 Monocytes % (Manual) 4.0 % (0.0-7.3) 05/28/21 04:04 Eosinophils % (Manual) 0 % (0.0-4.3) 05/28/21 04:04 Basophils % (Manual) 0 % (0.0-1.8) 05/28/21 04:04 Metamyelocytes % 0 % 05/28/21 04:04 Myelocytes % 0 % 05/28/21 04:04 Promyelocytes % 0 % 05/28/21 04:04 Blast Cells % 0 % 05/28/21 04:04 Nucleated RBC % Not Reportable 05/28/21 04:04 Seg Neutrophils # [employer] 05/16/21 10:21 Seg Neutrophils # Man 13.1 K/mm3 (1.8-7.7) H 05/28/21 04:04 Band Neutrophils # 0.1 K/mm3 05/28/21 04:04 Lymphocytes # (Manual) 0.3 K/mm3 (1.2-5.4) L 05/28/21 04:04 Abs React Lymphs (Man) 0.0 K/mm3 05/28/21 04:04 Monocytes # (Manual) 0.6 K/mm3 (0.0-0.8) 05/28/21 04:04 Eosinophils # (Manual) 0.0 K/mm3 (0.0-0.4) 05/28/21 04:04 Basophils # (Manual) 0.0 K/mm3 (0.0-0.1) 05/28/21 04:04 Metamyelocytes # 0.0 K/mm3 05/28/21 04:04 Myelocytes # 0.0 K/mm3 05/28/21 04:04 Promyelocytes # 0.0 K/mm3 05/28/21 04:04 Blast Cells # 0.0 K/mm3 05/28/21 04:04 WBC Morphology Not Reportable 05/28/21 04:04 Hypersegmented Neuts Not Reportable 05/28/21 04:04 Hyposegmented Neuts Not Reportable 05/28/21 04:04 Hypogranular Neuts Not Reportable 05/28/21 04:04 Smudge Cells Not Reportable 05/28/21 04:04 Toxic Granulation Not Reportable 05/28/21 04:04 Toxic Vacuolation Not Reportable 05/28/21 04:04 Dohle Bodies Not Reportable 05/28/21 04:04 Pelger-Huet Anomaly Not Reportable 05/28/21 04:04 Jesse Rods Not Reportable 05/28/21 04:04 Platelet Estimate Consistent w auto 05/28/21 04:04 Clumped Platelets Not Reportable 05/28/21 04:04 Plt Clumps, EDTA Not Reportable 05/28/21 04:04 Large Platelets Not Reportable 05/28/21 04:04 Giant Platelets Not Reportable 05/28/21 04:04 Platelet Satelliting Not Reportable 05/28/21 04:04 Plt Morphology Comment Not Reportable 05/28/21 04:04 RBC Morphology Not Reportable 05/28/21 04:04 Dimorphic RBCs Not Reportable 05/28/21 04:04 Polychromasia Not Reportable 05/28/21 04:04 Hypochromasia Not Reportable 05/28/21 04:04 Poikilocytosis Not Reportable 05/28/21 04:04 Anisocytosis 1+ 05/28/21 04:04 Microcytosis Not Reportable 05/28/21 04:04 Macrocytosis Not Reportable 05/28/21 04:04 Spherocytes Not Reportable 05/28/21 04:04 Pappenheimer Bodies Not Reportable 05/28/21 04:04 Sickle Cells Not Reportable 05/28/21 04:04 Target Cells Not Reportable 05/28/21 04:04 Tear Drop Cells Not Reportable 05/28/21 04:04 Ovalocytes Not Reportable 05/28/21 04:04 Helmet Cells Not Reportable 05/28/21 04:04 Murphy-Timonium Bodies Not Reportable 05/28/21 04:04 [place] Rings Not Reportable 05/28/21 04:04 [place] Cells Not Reportable 05/28/21 04:04 Bite Cells Not Reportable 05/28/21 04:04 Crenated Cell Not Reportable 05/28/21 04:04 Elliptocytes Not Reportable 05/28/21 04:04 Acanthocytes (Spur) Not Reportable 05/28/21 04:04 Rouleaux Not Reportable 05/28/21 04:04 Hemoglobin C Crystals Not Reportable 05/28/21 04:04 Schistocytes Not Reportable 05/28/21 04:04 Malaria parasites Not Reportable 05/28/21 04:04 Tomi Bodies Not Reportable 05/28/21 04:04 Haptoglobin 254 mg/dL (43-212) H 05/23/21 18:54 Hem Pathologist Commnt No 05/28/21 04:04 PT 14.9 Sec. (12.2-14.9) 05/25/21 04:25 INR 1.05 (0.87-1.13) 05/25/21 04:25 APTT 72.5 Sec. (24.2-36.6) H* 05/19/21 19:36 D-Dimer 2730.61 ng/mlDDU (0-234) H 05/12/21 07:19 Heparin Anti-Xa Level 0.47 U.I./ml (0.3-0.7) 05/19/21 05:23 ABG pH 7.443 pH Units (7.350-7.450) 05/27/21 09:20 ABG pCO2 38.8 mm Hg 05/27/21 09:20 ABG pO2 115.2 mm Hg (80.0-90.0) H 05/27/21 09:20 ABG HCO3 25.9 mmol/L (20.0-26.0) 05/27/21 09:20 ABG O2 Saturation 98.3 % (95.0-99.0) 05/27/21 09:20 ABG O2 Content 12.5 (0.0-44) 05/27/21 09:20 ABG Base Excess 1.7 mmol/L (-2.0-3.0) 05/27/21 09:20 ABG Hemoglobin 9.2 gm/dl (14.0-18.0) L 05/27/21 09:20 ABG Carboxyhemoglobin 2.2 % (0.0-5.0) 05/27/21 09:20 ABG Methemoglobin 0.7 % (0.0-1.5) 05/27/21 09:20 Oxyhemoglobin 95.4 % (95.0-99.0) 05/27/21 09:20 FiO2 30 % 05/27/21 09:20 Sodium 144 mmol/L (137-145) 06/01/21 04:56 Potassium 4.3 mmol/L (3.6-5.0) 06/01/21 04:56 Chloride 108.4 mmol/L (98-107) H 06/01/21 04:56 Carbon Dioxide 26 mmol/L (22-30) 06/01/21 04:56 Anion Gap 14 mmol/L 06/01/21 04:56 BUN 49 mg/dL (9-20) H 06/01/21 04:56 Creatinine 1.3 mg/dL (0.8-1.3) 06/01/21 04:56 Estimated GFR 57 ml/min 06/01/21 04:56 BUN/Creatinine Ratio 38 % 06/01/21 04:56 Glucose 113 mg/dL (75-100) H 06/01/21 04:56 POC Glucose 107 mg/dL (70-105) H 06/01/21 06:10 Lactic Acid 0.90 mmol/L (0.7-2.0) 05/20/21 09:17 Calcium 8.0 mg/dL (8.4-10.2) L 06/01/21 04:56 Phosphorus 3.70 mg/dL (2.5-4.5) 06/01/21 04:56 Magnesium 2.10 mg/dL (1.7-2.3) 06/01/21 04:56 Iron 10 ug/dL (49-181) L 05/23/21 Unknown TIBC 151 mcg/dL (250-450) L 05/23/21 Unknown Ferritin 640.2 ng/mL (30.0-300.0) H 05/12/21 07:19 Total Bilirubin 0.50 mg/dL (0.1-1.2) 05/24/21 04:11 AST 152 units/L (5-40) H 05/24/21 04:11 ALT 125 units/L (7-56) H 05/24/21 04:11 Alkaline Phosphatase 72 units/L (35-129) 05/24/21 04:11 Lactate Dehydrogenase 311 units/L (91-180) H 05/23/21 Unknown Total Creatine Kinase 406 units/L (55-170) H 05/04/21 08:42 Troponin T 0.400 ng/mL (0.00-0.029) H* D 05/16/21 18:40 C-Reactive Protein 13.20 mg/dL (0.00-1.30) H 05/28/21 04:04 Total Protein 6.6 g/dL (6.3-8.2) 05/24/21 04:11 Albumin 2.5 g/dL (3.9-5) L 05/24/21 04:11 Albumin/Globulin Ratio 0.6 % 05/24/21 04:11 Triglycerides 144 mg/dL (2-149) 05/10/21 04:57 Cholesterol 140 mg/dL (50-199) 05/04/21 07:25 LDL Cholesterol Direct 89 mg/dL (50-130) 05/04/21 07:25 HDL Cholesterol 48 mg/dL (40-59) 05/04/21 07:25 Cholesterol/HDL Ratio 2.91 % 05/04/21 07:25 Procalcitonin 0.63 ng/mL (<0.15) 05/09/21 15:53 Urine Color Yellow (Yellow) 05/26/21 09:50 Urine Turbidity Turbid (Clear) 05/26/21 09:50 Urine pH 5.0 (5.0-7.0) 05/26/21 09:50 Ur Specific [place] 1.014 (1.003-1.030) 05/26/21 09:50 Urine Protein 30 mg/dl mg/dL (Negative) 05/26/21 09:50 Urine Glucose (UA) Neg mg/dL (Negative) 05/26/21 09:50 Urine Ketones Neg mg/dL (Negative) 05/26/21 09:50 Urine Blood Sm (Negative) 05/26/21 09:50 Urine Nitrite Neg (Negative) 05/26/21 09:50 Urine Bilirubin Neg (Negative) 05/26/21 09:50 Urine Urobilinogen < 2.0 mg/dL (<2.0) 05/26/21 09:50 Ur Leukocyte Esterase Tr (Negative) 05/26/21 09:50 Urine WBC (Auto) 38.0 /HPF (0.0-6.0) H 05/26/21 09:50 Urine RBC (Auto) 5.0 /HPF (0.0-6.0) 05/26/21 09:50 U Epithel Cells (Auto) 1.0 /HPF (0-13.0) 05/23/21 16:30 Urine Bacteria (Auto) 1+ /HPF (Negative) 05/23/21 16:30 Uric Acid Crystals Few 05/09/21 00:40 Triple Phos Crystals 2+ 05/09/21 13:22 Amorphous Crystals 3+ 05/26/21 09:50 Granular Casts 20 /LPF 05/26/21 09:50 Urine Mucus Few /HPF 05/23/21 16:30 Urine Creatinine 100.1 mg/dL (0.1-20.0) H 05/23/21 16:30 Protein/Creatinin Ratio 0.42 05/10/21 11:03 Urine Sodium 25 mmol/L 05/23/21 16:30 Fraction Sodium Excret 0.3 05/23/21 16:30 Urine Total Protein 42 mg/dL (5-11.8) H 05/10/21 11:03 Vancomycin Trough 15.4 ug/mL (5.0-20.0) 05/29/21 14:15 Urine Opiates Screen Negative 05/04/21 Unknown Urine Methadone Screen Negative 05/04/21 Unknown Ur Barbiturates Screen Negative 05/04/21 Unknown Ur Phencyclidine Scrn Negative 05/04/21 Unknown Ur Amphetamines Screen Positive 05/04/21 Unknown U Benzodiazepines Scrn Negative 05/04/21 Unknown Urine Cocaine Screen Negative 05/04/21 Unknown U Marijuana (THC) Screen Negative 05/04/21 Unknown Drugs of Abuse Note Disclamer 05/04/21 Unknown Immunofix Electrophor see below 05/05/21 03:40 AUDRA Screen Negative (Negative) 05/05/21 03:40 Proteinase 3 (PR3) Ab <1.0 AI (<1.0) 05/05/21 03:40 Myeloperoxidase Ab <1.0 AI (<1.0) 05/05/21 03:40 Complement C3 72 mg/dL (82-185) L 05/05/21 03:40 Complement C4 17 mg/dL (15-53) 05/05/21 03:40 Coronavirus (PCR) Positive (Negative) A 05/05/21 08:30 Hepatitis A IgM Ab Non-reactive (NonReactive) 05/05/21 03:40 Hep Bs Antigen Non-reactive (Negative) 05/05/21 03:40 Hep B Core IgM Ab Non-reactive (NonReactive) 05/05/21 03:40 Hepatitis C Antibody Reactive (NonReactive) A 05/05/21 03:40 Blood Type O POSITIVE 05/23/21 07:12 Antibody Screen Negative 05/23/21 07:12 Crossmatch See Detail 05/23/21 07:12 Microbiology: Microbiology 05/26/21 12:59 Peripheral/Venous Blood Culture - Final NO GROWTH AFTER 5 DAYS 05/26/21 12:59 Peripheral/Venous Blood Culture - Final NO GROWTH AFTER 5 DAYS Merino/IV: Voiding Method Indwelling Catheter Active Medications - Current Medications Current Medications: Generic Name Dose Route Start Last Admin Trade Name Freq PRN Reason Stop Dose Admin Acetaminophen 650 mg 05/04/21 12:34 05/31/21 20:16 Acetaminophen 325 Mg Tab PO 650 mg Q4H PRN Administration Pain MILD(1-3)/Fever >100.5/MARIA Acetaminophen 650 mg 05/07/21 16:00 05/11/21 16:25 Acetaminophen 650 Mg Rect Supp PA 650 mg Q4H PRN Administration Pain, Mild (1-3) Atorvastatin Calcium 40 mg 05/09/21 22:00 05/31/21 21:15 Atorvastatin 40 Mg Tab FEEDTUBE 40 mg QHS RISHI Administration Dextrose 0 ml 05/09/21 10:49 05/14/21 06:55 Dextrose 10% *Hypoglycemia IV 250 ml PRN PRN Administration Hypoglycemia Fentanyl 50 mcg 05/23/21 15:00 Fentanyl 100 Mcg/2 Ml Inj IV Q10MIN PRN ANALGESIA Haloperidol Lactate 5 mg 05/09/21 18:32 05/18/21 19:52 Haloperidol Lactate 5 Mg/1 Ml Inj IV 5 mg Q6H PRN Administration Agitation Heparin Sodium (Porcine) 5,000 unit 05/27/21 22:00 05/31/21 21:15 Heparin 5,000 Unit/1 Ml Vial SUB-Q 5,000 unit Q12HR RISHI Administration Hydralazine HCl 50 mg 05/04/21 14:00 06/01/21 06:17 Hydralazine 25 Mg Tab PO 50 mg Q8HR RISHI Administration Hydrophilic Ointment 1 applic 05/05/21 15:21 Lip Therapy Vaseline TP Q2HR PRN Dry Lips Fentanyl Citrate 2,000 mcg in 100 mls @ 4.082 mls/hr 05/23/21 15:00 05/30/21 17:49 Fentanyl Drip Premix IV 0.5 mcg/kg/hr TITR RISHI 2.041 mls/hr Administration Protocol 1 MCG/KG/HR Ertapenem 1 gm/ Sodium 50 mls @ 100 mls/hr 05/26/21 14:00 05/31/21 10:45 Chloride IV 06/01/21 10:29 100 mls/hr QDAY RISHI Administration Insulin Human Lispro 0 unit 05/10/21 09:40 05/12/21 16:49 Insulin Lispro 100 Unit/Ml SUB-Q 2 unit Q6HR PRN Administration Hyperglycemia Protocol Labetalol HCl 10 mg 05/15/21 10:24 05/25/21 08:15 Labetalol 20 Mg/4 Ml Inj IV 10 mg Q4H PRN Administration sbp> 160. Lansoprazole 30 mg 05/26/21 10:00 05/31/21 21:15 Lansoprazole 30 Mg Solutab FEEDTUBE 30 mg BID RISHI Administration Metoprolol Tartrate 50 mg 05/26/21 08:00 05/31/21 20:16 Metoprolol Tartrate 25 Mg Tab FEEDTUBE 50 mg TID RISHI Administration Multi-Ingred Cream/Lotion/Oil/Oint 1 applic 05/05/21 15:21 Mineral Oil/Petrolatum, White Ophth Oint 3.5 Gm OU Q4HR PRN Dry Eye(s) Ondansetron HCl 4 mg 05/04/21 12:34 05/04/21 21:51 Ondansetron 4 Mg/2 Ml Inj IV 4 mg Q8H PRN Administration Nausea And Vomiting Oxycodone HCl 5 mg 05/30/21 11:00 05/30/21 14:55 Oxycodone 5 Mg Tab PO 5 mg Q6H PRN Administration Pain, Moderate (4-6) Polyethylene Glycol 17 gm 05/26/21 22:00 05/31/21 21:15 Polyethylene Glycol 3350 17 Gm Powder PO 17 gm QHS RISHI Administration Quetiapine Fumarate 50 mg 05/30/21 22:00 05/31/21 21:16 Quetiapine 25 Mg Tab PO Not Given BID RISHI Senna/Docusate Sodium 1 tab 05/05/21 22:00 05/31/21 21:15 Sennosides/Docusate Sodium 8.6/50 Mg Tab FEEDTUBE 1 tab BID RISHI Administration Sodium Chloride 10 ml 05/04/21 22:00 05/31/21 21:15 Sodium Chloride 0.9% 10 Ml Flush Syringe IV 10 ml BID RISHI Administration Sodium Chloride 10 ml 05/04/21 12:34 05/06/21 13:59 Sodium Chloride 0.9% 10 Ml Flush Syringe IV 10 ml PRN PRN Administration LINE FLUSH Sodium Chloride 10 ml 05/09/21 09:46 Sodium Chloride 0.9% 50 Ml Ivpb IV PRN PRN FLUSH Nutrition/Malnutrition Assess - Dietary Evaluation Nutrition/Malnutrition Findings: Nutrition Notes Start: 05/05/21 16:15 Freq: Status: Active Protocol: Document 05/27/21 15:02 ROSAURA (Rec: 05/27/21 15:07 ROSAURA [id number]) Nutrition Notes Initial or Follow up Reassessment Current Diagnosis Acute Kidney Injury, Hypertension,Heart Failure, Respiratory Failure Other Pertinent Diagnosis Severe COVID-19 pneu, metabolic encephalopathy, polysubstance dependence Current Diet TF - Nepro at 45ml/hr Labs/Tests BUN 56 Cr 1.8 Pertinent Medications Miralax Height 5 ft 7 in Weight 81.647 kg [place] Body Weight (kg) 67.27 BMI 28.1 Weight Status Overweight Subjective/Other Information Pt re-intubated on 05/23; rectal tube in place as well. Trach /PEG placement pending; awaiting family consent. Per RN, pt tolerating TF at goal rate. Percent of energy/protein needs met: 100% energy 89% pro Burn Absent Trauma Absent #1 Nutrition Diagnosis Inadequate oral intake Diagnosis Progress(for reassessment Continues documentation) Is patient on ventilator? Yes Is Patient Ambulatory and/or Out of Bed No REE-([facility]-confined to bed) [phone] Calculation Used for Recommendations [facility] Additional Notes Pro needs 1.2-2g/k-163g/ day Fluid needs 1ml/kcal Nutrition Intervention Nutrition Support: Continue Nepro at 45ml/hr with 200ml water flush q4h. Kcal 1,944 Protein (gm) 87 Carbohydrates (gm) 174 Fat (gm) 104 Fluid (mL) 785 Fiber (gm) 14 Goal #1 TF tolerance Goal #2 TF to meet at least 75% energy and pro needs Follow-Up By: 06/03/21 Additional Comments F/U: vent status, stable TF, trach/PEG placement
--- NOTE | 2021-05-31 14:11 | Progress Note ---
Assessment and Plan Cultures: Blood culture 05/07/2021 no growth so far Blood culture 05/10/2021 no growth so far Sputum culture 05/16/2021 Enterobacter 05/23/2021 tracheal aspirate culture: Enterobacter 05/26/2021 blood culture: Usual respiratory myra 05/26/2021 urine culture: No growth 05/26/2021 blood culture: No growth A/P: 56 yo M PMHx smoking, A. fib, HTN, medication non-compliance admitted with #Severe COVID-19 pneumonia: Patient presented with a week of symptoms, chest x- ray with diffuse bilateral infiltrates, admission O2 sats decreased on room air. Inflammatory markers elevated. Was not a candidate for Remdesivir. Completed steroids. #Acute hypoxemic respiratory failure: secondary to COVID-19 infection. On the vent. #VAP: Cultures with Enterobacter. #YE: Renally dose medications. #Acute anemia #Urinary tox screen positive for amphetamines Recommendations: -continue IV ertapenem 1 gm daily, D9 of 10, then STOP Rhonda Mooney MD, FACP, [facility] O: [phone] F: [phone] Subjective Date of service: 05/31/21 Principal diagnosis: AHRF; COVID-19 infection; NSTEMI; YE; HFrEF (35-40%); Polysubstance abuse Interval history: Fever curve better. Remains on the vent. Sedated. Objective - Exam Narrative Exam: Physical Exam: Constitutional: sedated, intubated, on the vent Head, Ears, Nose: Normocephalic, atraumatic. External ears, nose normal Eyes: Conjunctivae/corneas clear. No icterus. No ptosis. Neck: intubated Oral: intubated Cardiovascular: S1, S2 + Respiratory: AE fair bilaterally and equal GI: Soft, bowel sounds + Musculoskeletal: No pedal edema, no cyanosis. Skin: No rash or abscess Hem/Lymphatic: No palpable cervical or supraclavicular nodes. No lymphangitis Psych: no agitation Neurological: sedated, intubated, on the vent, exam limited - Constitutional Vitals: Vital Signs Temp Pulse Resp BP Pulse Ox 99.8 F H 73 10 L 120/76 99 05/31/21 12:00 05/31/21 13:00 05/31/21 13:00 05/31/21 13:00 05/31/21 13:00 Temperature -Last 24 Hours Temperature 99.8 F Temperature 98.4 F Temperature 98.2 F Temperature 97.8 F Temperature 98.8 F Temperature 99.3 F - Labs CBC & Chem 7: 05/31/21 04:11 05/31/21 04:11 Labs: Abnormal lab results 05/30/21 05/31/21 05/31/21 Range/Units 17:53 04:11 04:11 RBC 3.12 L (3.65-5.03) M/mm3 Hgb 9.3 L (11.8-15.2) gm/dl Hct 28.8 L (35.5-45.6) % RDW 16.1 H (13.2-15.2) % BUN 50 H (9-20) mg/dL Creatinine 1.4 H (0.8-1.3) mg/dL Glucose 117 H (75-100) mg/dL POC Glucose 107 H (70-105) mg/dL Calcium 8.0 L (8.4-10.2) mg/dL 05/31/21 Range/Units 11:36 RBC (3.65-5.03) M/mm3 Hgb (11.8-15.2) gm/dl Hct (35.5-45.6) % RDW (13.2-15.2) % BUN (9-20) mg/dL Creatinine (0.8-1.3) mg/dL Glucose (75-100) mg/dL POC Glucose 109 H (70-105) mg/dL Calcium (8.4-10.2) mg/dL
--- NOTE | 2021-05-31 16:44 | Progress Note ---
Assessment and Plan Acute hypoxic resp failure on MVS COVID positive NSTEMI Acute kidney injury Cardiomyopathy EF 35-40% History of hepatitis C Elevated D-dimer. Low probability for PE seen on VQ scan Tobacco abuse Polysubstance abusepatient with positive methamphetamines and has a history of cocaine use Anemia Failed extubation x3 now awaiting trach placement Continue with daily SBTs - VAP bundle addressed, aspiration precautions - titrate supplemental oxygen to keep SpO2 88-90% - Bronchodilators with pulmonary hygiene per RT - continue accuchecks with glycemic control per SSI (While critically ill target blood glucose of 140-180 mg/dL; avoid hypoglycemia) - avoid nephrotoxins, renally dose all medications - avoid benzodiazepines, reduce the possibility of delirium - prn analgesia per pain score - Maintenance of sleep-wake cycle, avoid delirium - Stress ulcer prophylaxis -Therapeutic anticoagulation- heparin infusion - mobility, off loading and frequent turning per facility protocol for pressure ulcer prevention - Monitor hemodynamics closely -Supportive transfusions as clinically indicated to keep HgB >7g/dL - continue other care per attending / other consultants CONDITION: CRITICAL PROGNOSIS: GUARDED CODE STATUS: FULL CODE The high probability of a clinically significant, sudden or life-threatening deterioration of the [respiratory, cardiovascular & neurologic ] system(s) required my full and direct attention, intervention and personal management. The aggregate critical care time was [33] minutes without overlap. Time includes spent on; [x] Data Review and interpretation [x] Patient assessment and monitoring of vital signs [x] Documentation [x] Medication orders and management Subjective Date of service: 05/31/21 Principal diagnosis: AHRF; COVID-19 infection; NSTEMI; YE; HFrEF (35-40%); Polysubstance abuse Interval history: Follow up for acute hypoxemic resp failure on MVS, COVID infection;YE; Hypertension Seen and examined. Vitals, labs, medications, chart and imaging reviewed. Discussed with respiratory and nursing care staff. On going fevers, more awake Fentanyl at 0.5mcg Has Merino catheter for urinary retention MVS: 16/450/8/25% Daily SBT as tolerated Objective Vital Signs - 12hr 05/31/21 05/31/21 05/31/21 05:00 06:00 07:00 Temperature Pulse Rate 66 71 71 Pulse Rate [ From Monitor] Respiratory 20 29 H 24 Rate Blood Pressure 117/81 117/84 124/79 O2 Sat by Pulse 97 97 Oximetry 05/31/21 05/31/21 05/31/21 07:11 08:00 08:32 Temperature 98.4 F Pulse Rate 72 76 Pulse Rate [ 75 From Monitor] Respiratory 14 Rate Blood Pressure 124/79 110/85 O2 Sat by Pulse 98 99 Oximetry 05/31/21 05/31/21 05/31/21 09:00 10:00 10:45 Temperature Pulse Rate 76 76 79 Pulse Rate [ From Monitor] Respiratory 16 17 Rate Blood Pressure 127/86 125/81 126/79 O2 Sat by Pulse 96 96 Oximetry 05/31/21 05/31/21 05/31/21 11:00 11:47 12:00 Temperature 99.8 F H Pulse Rate 80 70 69 Pulse Rate [ 78 From Monitor] Respiratory 18 18 21 Rate Blood Pressure 119/81 129/86 123/80 O2 Sat by Pulse 96 98 99 Oximetry 05/31/21 05/31/21 05/31/21 13:00 14:00 14:49 Temperature Pulse Rate 73 72 Pulse Rate [ From Monitor] Respiratory 10 L 9 L Rate Blood Pressure 120/76 122/79 114/77 O2 Sat by Pulse 99 98 Oximetry 05/31/21 05/31/21 05/31/21 14:55 15:00 16:00 Temperature Pulse Rate 75 78 76 Pulse Rate [ 74 From Monitor] Respiratory 26 H 19 Rate Blood Pressure 114/77 116/74 127/78 O2 Sat by Pulse 97 97 Oximetry Constitutional: appears uncomfortable, other (middle aged male with mildly increased respiratory effort at rest) Eyes: non-icteric ENT: oropharynx moist, other (ETT 24 cm ELIZABET) Neck: supple, no lymphadenopathy, no JVD Effort: mildly labored Ascultation: Bilateral: clear, diminished breath sounds, rhonchi Percussion: Bilateral: not dull Cardiovascular: regular rate and rhythm, other (S1,S2) Gastrointestinal: normoactive bowel sounds, soft, non-tender, non-distended Integumentary: normal Extremities: no cyanosis, no edema, pulses normal Neurologic: non-focal exam (grossly), pupils equal and round, unable to assess (sedated) Psychiatric: other CBC and BMP: 06/05/21 04:24 06/05/21 04:24 ABG, PT/INR, D-dimer: ABG ABG pH 7.443 pH Units (7.350-7.450) 05/27/21 09:20 ABG pCO2 38.8 mm Hg 05/27/21 09:20 ABG pO2 115.2 mm Hg (80.0-90.0) H 05/27/21 09:20 ABG O2 Saturation 98.3 % (95.0-99.0) 05/27/21 09:20 PT/INR, D-dimer PT 14.9 Sec. (12.2-14.9) 05/25/21 04:25 INR 1.05 (0.87-1.13) 05/25/21 04:25 D-Dimer 2730.61 ng/mlDDU (0-234) H 05/12/21 07:19 Abnormal lab findings: Abnormal Labs 05/04/21 05/04/21 05/04/21 07:25 07:25 07:25 WBC 12.9 H RBC 3.04 L Hgb 9.5 L Hct 28.4 L MCV MCHC RDW 15.4 H Lymph % (Auto) 11.4 L Garden % (Auto) 10.1 H Lymph # (Auto) Garden # (Auto) 1.3 H Seg Neutrophils % 78.0 H Seg Neuts % (Manual) Lymphocytes % (Manual) Monocytes % (Manual) Seg Neutrophils # 10.0 H Seg Neutrophils # Man Lymphocytes # (Manual) Monocytes # (Manual) Haptoglobin PT 15.1 H APTT D-Dimer Heparin Anti-Xa Level ABG pH ABG pO2 ABG HCO3 ABG O2 Saturation ABG Base Excess ABG Hemoglobin Oxyhemoglobin Sodium 135 L Potassium Chloride Carbon Dioxide BUN 65 H Creatinine 3.4 H Glucose 118 H POC Glucose Calcium Phosphorus Magnesium Iron TIBC Ferritin Total Bilirubin 1.50 H AST 519 H ALT 475 H Lactate Dehydrogenase Total Creatine Kinase Troponin T 1.300 H* C-Reactive Protein Albumin Urine WBC (Auto) Urine Creatinine Urine Total Protein Complement C3 Coronavirus (PCR) Hepatitis C Antibody Crossmatch 05/04/21 05/04/21 05/04/21 07:25 08:42 08:42 WBC RBC Hgb Hct MCV MCHC RDW Lymph % (Auto) Garden % (Auto) Lymph # (Auto) Garden # (Auto) Seg Neutrophils % Seg Neuts % (Manual) Lymphocytes % (Manual) Monocytes % (Manual) Seg Neutrophils # Seg Neutrophils # Man Lymphocytes # (Manual) Monocytes # (Manual) Haptoglobin PT APTT D-Dimer 579.49 H Heparin Anti-Xa Level ABG pH ABG pO2 ABG HCO3 ABG O2 Saturation ABG Base Excess ABG Hemoglobin Oxyhemoglobin Sodium Potassium Chloride Carbon Dioxide BUN Creatinine Glucose POC Glucose Calcium Phosphorus Magnesium Iron TIBC Ferritin Total Bilirubin AST ALT Lactate Dehydrogenase Total Creatine Kinase 406 H Troponin T 1.230 H* C-Reactive Protein Albumin Urine WBC (Auto) Urine Creatinine Urine Total Protein Complement C3 Coronavirus (PCR) Hepatitis C Antibody Crossmatch 05/04/21 05/04/21 05/04/21 10:13 13:34 18:14 WBC RBC Hgb 8.8 L Hct 26.6 L MCV MCHC RDW Lymph % (Auto) Garden % (Auto) Lymph # (Auto) Garden # (Auto) Seg Neutrophils % Seg Neuts % (Manual) Lymphocytes % (Manual) Monocytes % (Manual) Seg Neutrophils # Seg Neutrophils # Man Lymphocytes # (Manual) Monocytes # (Manual) Haptoglobin PT APTT D-Dimer Heparin Anti-Xa Level < 0.10 L ABG pH ABG pO2 ABG HCO3 ABG O2 Saturation ABG Base Excess ABG Hemoglobin Oxyhemoglobin Sodium Potassium Chloride Carbon Dioxide BUN Creatinine Glucose POC Glucose Calcium Phosphorus Magnesium Iron TIBC Ferritin Total Bilirubin AST ALT Lactate Dehydrogenase Total Creatine Kinase Troponin T 1.400 H* C-Reactive Protein Albumin Urine WBC (Auto) Urine Creatinine Urine Total Protein Complement C3 Coronavirus (PCR) Hepatitis C Antibody Crossmatch 05/05/21 05/05/21 05/05/21 03:40 03:40 03:40 WBC RBC Hgb Hct MCV MCHC RDW Lymph % (Auto) Garden % (Auto) Lymph # (Auto) Garden # (Auto) Seg Neutrophils % Seg Neuts % (Manual) Lymphocytes % (Manual) Monocytes % (Manual) Seg Neutrophils # Seg Neutrophils # Man Lymphocytes # (Manual) Monocytes # (Manual) Haptoglobin PT APTT D-Dimer Heparin Anti-Xa Level 0.11 L ABG pH ABG pO2 ABG HCO3 ABG O2 Saturation ABG Base Excess ABG Hemoglobin Oxyhemoglobin Sodium Potassium 3.3 L Chloride Carbon Dioxide BUN 59 H Creatinine 2.6 H Glucose 139 H POC Glucose Calcium Phosphorus Magnesium Iron TIBC Ferritin Total Bilirubin AST ALT Lactate Dehydrogenase Total Creatine Kinase Troponin T C-Reactive Protein Albumin Urine WBC (Auto) Urine Creatinine Urine Total Protein Complement C3 Coronavirus (PCR) Hepatitis C Antibody Reactive A Crossmatch 05/05/21 05/05/21 05/05/21 03:40 08:30 09:57 WBC RBC Hgb Hct MCV MCHC RDW Lymph % (Auto) Garden % (Auto) Lymph # (Auto) Garden # (Auto) Seg Neutrophils % Seg Neuts % (Manual) Lymphocytes % (Manual) Monocytes % (Manual) Seg Neutrophils # Seg Neutrophils # Man Lymphocytes # (Manual) Monocytes # (Manual) Haptoglobin PT APTT D-Dimer Heparin Anti-Xa Level ABG pH ABG pO2 ABG HCO3 ABG O2 Saturation ABG Base Excess ABG Hemoglobin Oxyhemoglobin Sodium Potassium Chloride Carbon Dioxide BUN Creatinine Glucose POC Glucose Calcium Phosphorus Magnesium Iron TIBC Ferritin Total Bilirubin AST ALT Lactate Dehydrogenase Total Creatine Kinase Troponin T C-Reactive Protein Albumin Urine WBC (Auto) Urine Creatinine 100.8 H Urine Total Protein Complement C3 72 L Coronavirus (PCR) Positive A Hepatitis C Antibody Crossmatch 05/05/21 05/05/21 05/05/21 11:28 17:00 19:51 WBC RBC Hgb Hct MCV MCHC RDW Lymph % (Auto) Garden % (Auto) Lymph # (Auto) Garden # (Auto) Seg Neutrophils % Seg Neuts % (Manual) Lymphocytes % (Manual) Monocytes % (Manual) Seg Neutrophils # Seg Neutrophils # Man Lymphocytes # (Manual) Monocytes # (Manual) Haptoglobin PT APTT D-Dimer Heparin Anti-Xa Level 0.10 L 0.22 L ABG pH 7.304 L ABG pO2 140.8 H ABG HCO3 ABG O2 Saturation ABG Base Excess -2.1 L ABG Hemoglobin 10.2 L Oxyhemoglobin Sodium Potassium Chloride Carbon Dioxide BUN Creatinine Glucose POC Glucose Calcium Phosphorus Magnesium Iron TIBC Ferritin Total Bilirubin AST ALT Lactate Dehydrogenase Total Creatine Kinase Troponin T C-Reactive Protein Albumin Urine WBC (Auto) Urine Creatinine Urine Total Protein Complement C3 Coronavirus (PCR) Hepatitis C Antibody Crossmatch 05/06/21 05/06/21 05/06/21 03:47 06:15 17:53 WBC RBC Hgb 9.0 L Hct 27.8 L MCV MCHC RDW Lymph % (Auto) Garden % (Auto) Lymph # (Auto) Garden # (Auto) Seg Neutrophils % Seg Neuts % (Manual) Lymphocytes % (Manual) Monocytes % (Manual) Seg Neutrophils # Seg Neutrophils # Man Lymphocytes # (Manual) Monocytes # (Manual) Haptoglobin PT APTT D-Dimer Heparin Anti-Xa Level 0.10 L ABG pH ABG pO2 143.5 H ABG HCO3 ABG O2 Saturation ABG Base Excess -2.4 L ABG Hemoglobin 6.9 L Oxyhemoglobin Sodium Potassium Chloride Carbon Dioxide BUN Creatinine Glucose POC Glucose Calcium Phosphorus Magnesium Iron TIBC Ferritin Total Bilirubin AST ALT Lactate Dehydrogenase Total Creatine Kinase Troponin T C-Reactive Protein Albumin Urine WBC (Auto) Urine Creatinine Urine Total Protein Complement C3 Coronavirus (PCR) Hepatitis C Antibody Crossmatch 05/07/21 05/07/21 05/07/21 00:07 03:22 03:45 WBC RBC Hgb Hct MCV MCHC RDW Lymph % (Auto) Garden % (Auto) Lymph # (Auto) Garden # (Auto) Seg Neutrophils % Seg Neuts % (Manual) Lymphocytes % (Manual) Monocytes % (Manual) Seg Neutrophils # Seg Neutrophils # Man Lymphocytes # (Manual) Monocytes # (Manual) Haptoglobin PT APTT D-Dimer Heparin Anti-Xa Level < 0.10 L ABG pH ABG pO2 104.3 H ABG HCO3 ABG O2 Saturation ABG Base Excess -2.6 L ABG Hemoglobin 9.1 L Oxyhemoglobin Sodium Potassium Chloride 107.1 H Carbon Dioxide 20 L BUN 56 H Creatinine 2.9 H Glucose POC Glucose Calcium Phosphorus Magnesium Iron TIBC Ferritin Total Bilirubin AST ALT Lactate Dehydrogenase Total Creatine Kinase Troponin T C-Reactive Protein Albumin Urine WBC (Auto) Urine Creatinine Urine Total Protein Complement C3 Coronavirus (PCR) Hepatitis C Antibody Crossmatch 05/07/21 05/07/21 05/07/21 07:44 16:28 22:41 WBC RBC Hgb Hct MCV MCHC RDW Lymph % (Auto) Garden % (Auto) Lymph # (Auto) Garden # (Auto) Seg Neutrophils % Seg Neuts % (Manual) Lymphocytes % (Manual) Monocytes % (Manual) Seg Neutrophils # Seg Neutrophils # Man Lymphocytes # (Manual) Monocytes # (Manual) Haptoglobin PT APTT D-Dimer Heparin Anti-Xa Level < 0.10 L 0.10 L < 0.10 L ABG pH ABG pO2 ABG HCO3 ABG O2 Saturation ABG Base Excess ABG Hemoglobin Oxyhemoglobin Sodium Potassium Chloride Carbon Dioxide BUN Creatinine Glucose POC Glucose Calcium Phosphorus Magnesium Iron TIBC Ferritin Total Bilirubin AST ALT Lactate Dehydrogenase Total Creatine Kinase Troponin T C-Reactive Protein Albumin Urine WBC (Auto) Urine Creatinine Urine Total Protein Complement C3 Coronavirus (PCR) Hepatitis C Antibody Crossmatch 05/08/21 05/08/21 05/08/21 03:25 04:34 07:30 WBC 12.4 H RBC 3.02 L Hgb 9.5 L Hct 29.2 L MCV 97 H MCHC RDW 16.7 H Lymph % (Auto) 8.1 L Garden % (Auto) 11.0 H Lymph # (Auto) 1.0 L Garden # (Auto) 1.4 H Seg Neutrophils % 80.1 H Seg Neuts % (Manual) Lymphocytes % (Manual) Monocytes % (Manual) Seg Neutrophils # 9.9 H Seg Neutrophils # Man Lymphocytes # (Manual) Monocytes # (Manual) Haptoglobin PT APTT D-Dimer Heparin Anti-Xa Level ABG pH ABG pO2 139.0 H ABG HCO3 ABG O2 Saturation ABG Base Excess ABG Hemoglobin 8.8 L Oxyhemoglobin Sodium Potassium Chloride 110.5 H Carbon Dioxide BUN 59 H Creatinine 2.8 H Glucose 103 H POC Glucose Calcium Phosphorus Magnesium Iron TIBC Ferritin Total Bilirubin AST ALT 327 H Lactate Dehydrogenase Total Creatine Kinase Troponin T C-Reactive Protein Albumin 3.1 L Urine WBC (Auto) Urine Creatinine Urine Total Protein Complement C3 Coronavirus (PCR) Hepatitis C Antibody Crossmatch 05/09/21 05/09/21 05/09/21 04:10 04:20 04:20 WBC 11.7 H RBC 2.79 L Hgb 8.7 L Hct 26.5 L MCV 95 H MCHC RDW 16.2 H Lymph % (Auto) Garden % (Auto) Lymph # (Auto) Garden # (Auto) Seg Neutrophils % Seg Neuts % (Manual) Lymphocytes % (Manual) Monocytes % (Manual) Seg Neutrophils # Seg Neutrophils # Man Lymphocytes # (Manual) Monocytes # (Manual) Haptoglobin PT APTT D-Dimer Heparin Anti-Xa Level ABG pH ABG pO2 161.6 H ABG HCO3 ABG O2 Saturation ABG Base Excess ABG Hemoglobin 8.3 L Oxyhemoglobin Sodium 151 H Potassium Chloride 114.5 H Carbon Dioxide 21 L BUN 57 H Creatinine 2.4 H Glucose POC Glucose Calcium Phosphorus Magnesium Iron TIBC Ferritin Total Bilirubin AST ALT 210 H Lactate Dehydrogenase Total Creatine Kinase Troponin T C-Reactive Protein Albumin 2.9 L Urine WBC (Auto) Urine Creatinine Urine Total Protein Complement C3 Coronavirus (PCR) Hepatitis C Antibody Crossmatch 05/09/21 05/09/21 05/09/21 09:48 09:48 13:22 WBC 11.6 H RBC 3.00 L Hgb 9.0 L Hct 28.4 L MCV MCHC RDW 15.9 H Lymph % (Auto) 5.9 L Garden % (Auto) 8.9 H Lymph # (Auto) 0.7 L Garden # (Auto) 1.0 H Seg Neutrophils % 84.3 H Seg Neuts % (Manual) Lymphocytes % (Manual) Monocytes % (Manual) Seg Neutrophils # 9.8 H Seg Neutrophils # Man Lymphocytes # (Manual) Monocytes # (Manual) Haptoglobin PT APTT D-Dimer Heparin Anti-Xa Level ABG pH ABG pO2 ABG HCO3 ABG O2 Saturation ABG Base Excess ABG Hemoglobin Oxyhemoglobin Sodium Potassium Chloride Carbon Dioxide BUN Creatinine Glucose POC Glucose Calcium Phosphorus Magnesium Iron TIBC Ferritin Total Bilirubin AST ALT Lactate Dehydrogenase Total Creatine Kinase Troponin T C-Reactive Protein 8.70 H Albumin Urine WBC (Auto) 25.0 H Urine Creatinine Urine Total Protein Complement C3 Coronavirus (PCR) Hepatitis C Antibody Crossmatch 05/09/21 05/09/21 05/10/21 15:20 18:16 04:57 WBC RBC 2.87 L Hgb 8.8 L Hct 27.0 L MCV MCHC RDW 15.9 H Lymph % (Auto) Garden % (Auto) Lymph # (Auto) Garden # (Auto) Seg Neutrophils % Seg Neuts % (Manual) Lymphocytes % (Manual) Monocytes % (Manual) Seg Neutrophils # Seg Neutrophils # Man Lymphocytes # (Manual) Monocytes # (Manual) Haptoglobin PT APTT D-Dimer Heparin Anti-Xa Level ABG pH ABG pO2 102.0 H ABG HCO3 ABG O2 Saturation ABG Base Excess -2.8 L ABG Hemoglobin 9.0 L Oxyhemoglobin Sodium Potassium Chloride Carbon Dioxide BUN Creatinine Glucose POC Glucose 130 H Calcium Phosphorus Magnesium Iron TIBC Ferritin Total Bilirubin AST ALT Lactate Dehydrogenase Total Creatine Kinase Troponin T C-Reactive Protein Albumin Urine WBC (Auto) Urine Creatinine Urine Total Protein Complement C3 Coronavirus (PCR) Hepatitis C Antibody Crossmatch 05/10/21 05/10/21 05/10/21 04:57 04:57 04:57 WBC RBC Hgb Hct MCV MCHC RDW Lymph % (Auto) Garden % (Auto) Lymph # (Auto) Garden # (Auto) Seg Neutrophils % Seg Neuts % (Manual) Lymphocytes % (Manual) Monocytes % (Manual) Seg Neutrophils # Seg Neutrophils # Man Lymphocytes # (Manual) Monocytes # (Manual) Haptoglobin PT APTT D-Dimer 1546.78 H Heparin Anti-Xa Level ABG pH ABG pO2 ABG HCO3 ABG O2 Saturation ABG Base Excess ABG Hemoglobin Oxyhemoglobin Sodium 148 H Potassium Chloride 114.9 H Carbon Dioxide 21 L BUN 57 H Creatinine 2.3 H Glucose 157 H POC Glucose Calcium Phosphorus Magnesium Iron TIBC Ferritin 888.2 H Total Bilirubin AST ALT Lactate Dehydrogenase 289 H Total Creatine Kinase Troponin T C-Reactive Protein 6.80 H Albumin Urine WBC (Auto) Urine Creatinine Urine Total Protein Complement C3 Coronavirus (PCR) Hepatitis C Antibody Crossmatch 05/10/21 05/10/21 05/10/21 05:09 08:04 11:03 WBC RBC Hgb Hct MCV MCHC RDW Lymph % (Auto) Garden % (Auto) Lymph # (Auto) Garden # (Auto) Seg Neutrophils % Seg Neuts % (Manual) Lymphocytes % (Manual) Monocytes % (Manual) Seg Neutrophils # Seg Neutrophils # Man Lymphocytes # (Manual) Monocytes # (Manual) Haptoglobin PT APTT D-Dimer Heparin Anti-Xa Level ABG pH 7.473 H ABG pO2 114.6 H ABG HCO3 ABG O2 Saturation ABG Base Excess ABG Hemoglobin 9.5 L Oxyhemoglobin Sodium Potassium Chloride Carbon Dioxide BUN Creatinine Glucose POC Glucose 152 H Calcium Phosphorus Magnesium Iron TIBC Ferritin Total Bilirubin AST ALT Lactate Dehydrogenase Total Creatine Kinase Troponin T C-Reactive Protein Albumin Urine WBC (Auto) Urine Creatinine 100.8 H Urine Total Protein 42 H Complement C3 Coronavirus (PCR) Hepatitis C Antibody Crossmatch 05/10/21 05/10/21 05/10/21 13:07 18:01 23:31 WBC RBC Hgb Hct MCV MCHC RDW Lymph % (Auto) Garden % (Auto) Lymph # (Auto) Garden # (Auto) Seg Neutrophils % Seg Neuts % (Manual) Lymphocytes % (Manual) Monocytes % (Manual) Seg Neutrophils # Seg Neutrophils # Man Lymphocytes # (Manual) Monocytes # (Manual) Haptoglobin PT APTT D-Dimer Heparin Anti-Xa Level ABG pH ABG pO2 ABG HCO3 ABG O2 Saturation ABG Base Excess ABG Hemoglobin Oxyhemoglobin Sodium Potassium Chloride Carbon Dioxide BUN Creatinine Glucose POC Glucose 150 H 189 H 142 H Calcium Phosphorus Magnesium Iron TIBC Ferritin Total Bilirubin AST ALT Lactate Dehydrogenase Total Creatine Kinase Troponin T C-Reactive Protein Albumin Urine WBC (Auto) Urine Creatinine Urine Total Protein Complement C3 Coronavirus (PCR) Hepatitis C Antibody Crossmatch 05/10/21 05/11/21 05/11/21 Unknown 05:25 06:53 WBC RBC Hgb Hct MCV MCHC RDW Lymph % (Auto) Garden % (Auto) Lymph # (Auto) Garden # (Auto) Seg Neutrophils % Seg Neuts % (Manual) Lymphocytes % (Manual) Monocytes % (Manual) Seg Neutrophils # Seg Neutrophils # Man Lymphocytes # (Manual) Monocytes # (Manual) Haptoglobin PT APTT D-Dimer Heparin Anti-Xa Level ABG pH ABG pO2 126.6 H ABG HCO3 ABG O2 Saturation ABG Base Excess ABG Hemoglobin 9.2 L Oxyhemoglobin Sodium 150 H Potassium Chloride 116.6 H Carbon Dioxide 21 L BUN 62 H Creatinine 2.5 H Glucose 142 H POC Glucose 163 H Calcium Phosphorus Magnesium Iron TIBC Ferritin Total Bilirubin AST ALT Lactate Dehydrogenase Total Creatine Kinase Troponin T C-Reactive Protein Albumin Urine WBC (Auto) Urine Creatinine Urine Total Protein Complement C3 Coronavirus (PCR) Hepatitis C Antibody Crossmatch 05/11/21 05/11/21 05/11/21 06:53 11:06 13:51 WBC RBC 3.07 L Hgb 9.3 L Hct 29.0 L MCV 95 H MCHC RDW 16.1 H Lymph % (Auto) Garden % (Auto) Lymph # (Auto) Garden # (Auto) Seg Neutrophils % Seg Neuts % (Manual) Lymphocytes % (Manual) Monocytes % (Manual) Seg Neutrophils # Seg Neutrophils # Man Lymphocytes # (Manual) Monocytes # (Manual) Haptoglobin PT APTT D-Dimer Heparin Anti-Xa Level ABG pH ABG pO2 74.9 L ABG HCO3 ABG O2 Saturation ABG Base Excess -3.3 L ABG Hemoglobin 10.8 L Oxyhemoglobin Sodium Potassium Chloride Carbon Dioxide BUN Creatinine Glucose POC Glucose 145 H Calcium Phosphorus Magnesium Iron TIBC Ferritin Total Bilirubin AST ALT Lactate Dehydrogenase Total Creatine Kinase Troponin T C-Reactive Protein Albumin Urine WBC (Auto) Urine Creatinine Urine Total Protein Complement C3 Coronavirus (PCR) Hepatitis C Antibody Crossmatch 05/11/21 05/11/21 05/11/21 14:43 14:43 15:47 WBC RBC Hgb 9.2 L Hct 29.7 L MCV MCHC RDW Lymph % (Auto) Garden % (Auto) Lymph # (Auto) Garden # (Auto) Seg Neutrophils % Seg Neuts % (Manual) Lymphocytes % (Manual) Monocytes % (Manual) Seg Neutrophils # Seg Neutrophils # Man Lymphocytes # (Manual) Monocytes # (Manual) Haptoglobin PT 15.6 H APTT D-Dimer Heparin Anti-Xa Level ABG pH ABG pO2 ABG HCO3 ABG O2 Saturation ABG Base Excess ABG Hemoglobin Oxyhemoglobin Sodium Potassium Chloride Carbon Dioxide BUN Creatinine Glucose POC Glucose 137 H Calcium Phosphorus Magnesium Iron TIBC Ferritin Total Bilirubin AST ALT Lactate Dehydrogenase Total Creatine Kinase Troponin T C-Reactive Protein Albumin Urine WBC (Auto) Urine Creatinine Urine Total Protein Complement C3 Coronavirus (PCR) Hepatitis C Antibody Crossmatch 05/12/21 05/12/21 05/12/21 00:04 05:07 07:19 WBC 11.9 H RBC 3.00 L Hgb 9.1 L Hct 28.9 L MCV 96 H MCHC RDW 16.7 H Lymph % (Auto) 11.5 L Garden % (Auto) 8.2 H Lymph # (Auto) Garden # (Auto) 1.0 H Seg Neutrophils % 80.0 H Seg Neuts % (Manual) Lymphocytes % (Manual) Monocytes % (Manual) Seg Neutrophils # 9.6 H Seg Neutrophils # Man Lymphocytes # (Manual) Monocytes # (Manual) Haptoglobin PT APTT D-Dimer Heparin Anti-Xa Level ABG pH ABG pO2 ABG HCO3 ABG O2 Saturation ABG Base Excess ABG Hemoglobin Oxyhemoglobin Sodium Potassium Chloride Carbon Dioxide BUN Creatinine Glucose POC Glucose 121 H 117 H Calcium Phosphorus Magnesium Iron TIBC Ferritin Total Bilirubin AST ALT Lactate Dehydrogenase Total Creatine Kinase Troponin T C-Reactive Protein Albumin Urine WBC (Auto) Urine Creatinine Urine Total Protein Complement C3 Coronavirus (PCR) Hepatitis C Antibody Crossmatch 05/12/21 05/12/21 05/12/21 07:19 07:19 07:19 WBC RBC Hgb Hct MCV MCHC RDW Lymph % (Auto) Garden % (Auto) Lymph # (Auto) Garden # (Auto) Seg Neutrophils % Seg Neuts % (Manual) Lymphocytes % (Manual) Monocytes % (Manual) Seg Neutrophils # Seg Neutrophils # Man Lymphocytes # (Manual) Monocytes # (Manual) Haptoglobin PT APTT D-Dimer 2730.61 H Heparin Anti-Xa Level ABG pH ABG pO2 ABG HCO3 ABG O2 Saturation ABG Base Excess ABG Hemoglobin Oxyhemoglobin Sodium 146 H Potassium 5.1 H Chloride 112.4 H Carbon Dioxide 21 L BUN 61 H Creatinine 2.2 H Glucose 136 H POC Glucose Calcium 8.1 L Phosphorus Magnesium Iron TIBC Ferritin 640.2 H Total Bilirubin AST ALT Lactate Dehydrogenase 314 H Total Creatine Kinase Troponin T C-Reactive Protein 1.60 H Albumin Urine WBC (Auto) Urine Creatinine Urine Total Protein Complement C3 Coronavirus (PCR) Hepatitis C Antibody Crossmatch 05/12/21 05/12/21 05/12/21 11:10 16:10 16:38 WBC RBC Hgb Hct MCV MCHC RDW Lymph % (Auto) Garden % (Auto) Lymph # (Auto) Garden # (Auto) Seg Neutrophils % Seg Neuts % (Manual) Lymphocytes % (Manual) Monocytes % (Manual) Seg Neutrophils # Seg Neutrophils # Man Lymphocytes # (Manual) Monocytes # (Manual) Haptoglobin PT APTT D-Dimer Heparin Anti-Xa Level 0.20 L ABG pH ABG pO2 ABG HCO3 ABG O2 Saturation ABG Base Excess ABG Hemoglobin Oxyhemoglobin Sodium Potassium Chloride Carbon Dioxide BUN Creatinine Glucose POC Glucose 131 H 157 H Calcium Phosphorus Magnesium Iron TIBC Ferritin Total Bilirubin AST ALT Lactate Dehydrogenase Total Creatine Kinase Troponin T C-Reactive Protein Albumin Urine WBC (Auto) Urine Creatinine Urine Total Protein Complement C3 Coronavirus (PCR) Hepatitis C Antibody Crossmatch 05/12/21 05/13/21 05/13/21 23:30 00:12 04:20 WBC RBC Hgb Hct MCV MCHC RDW Lymph % (Auto) Garden % (Auto) Lymph # (Auto) Garden # (Auto) Seg Neutrophils % Seg Neuts % (Manual) Lymphocytes % (Manual) Monocytes % (Manual) Seg Neutrophils # Seg Neutrophils # Man Lymphocytes # (Manual) Monocytes # (Manual) Haptoglobin PT APTT D-Dimer Heparin Anti-Xa Level 0.13 L ABG pH ABG pO2 ABG HCO3 ABG O2 Saturation ABG Base Excess ABG Hemoglobin Oxyhemoglobin Sodium Potassium Chloride 111.2 H Carbon Dioxide BUN 53 H Creatinine 1.9 H Glucose 121 H POC Glucose 115 H Calcium 8.3 L Phosphorus Magnesium Iron TIBC Ferritin Total Bilirubin AST ALT Lactate Dehydrogenase Total Creatine Kinase Troponin T C-Reactive Protein Albumin Urine WBC (Auto) Urine Creatinine Urine Total Protein Complement C3 Coronavirus (PCR) Hepatitis C Antibody Crossmatch 05/13/21 05/13/21 05/13/21 04:20 11:15 11:29 WBC 13.1 H RBC 2.86 L Hgb 8.5 L Hct 26.9 L MCV MCHC RDW 15.7 H Lymph % (Auto) Garden % (Auto) Lymph # (Auto) Garden # (Auto) Seg Neutrophils % Seg Neuts % (Manual) Lymphocytes % (Manual) Monocytes % (Manual) Seg Neutrophils # Seg Neutrophils # Man Lymphocytes # (Manual) Monocytes # (Manual) Haptoglobin PT APTT D-Dimer Heparin Anti-Xa Level ABG pH 7.456 H ABG pO2 106.0 H ABG HCO3 ABG O2 Saturation ABG Base Excess ABG Hemoglobin 7.1 L Oxyhemoglobin Sodium Potassium Chloride Carbon Dioxide BUN Creatinine Glucose POC Glucose 121 H Calcium Phosphorus Magnesium Iron TIBC Ferritin Total Bilirubin AST ALT Lactate Dehydrogenase Total Creatine Kinase Troponin T C-Reactive Protein Albumin Urine WBC (Auto) Urine Creatinine Urine Total Protein Complement C3 Coronavirus (PCR) Hepatitis C Antibody Crossmatch 05/13/21 05/13/21 05/14/21 16:38 23:43 04:26 WBC 14.2 H RBC 3.11 L Hgb 9.4 L Hct 29.3 L MCV MCHC RDW 15.4 H Lymph % (Auto) Garden % (Auto) Lymph # (Auto) Garden # (Auto) Seg Neutrophils % Seg Neuts % (Manual) Lymphocytes % (Manual) Monocytes % (Manual) Seg Neutrophils # Seg Neutrophils # Man Lymphocytes # (Manual) Monocytes # (Manual) Haptoglobin PT APTT D-Dimer Heparin Anti-Xa Level ABG pH ABG pO2 ABG HCO3 ABG O2 Saturation ABG Base Excess ABG Hemoglobin Oxyhemoglobin Sodium Potassium Chloride Carbon Dioxide BUN Creatinine Glucose POC Glucose 119 H 55 L Calcium Phosphorus Magnesium Iron TIBC Ferritin Total Bilirubin AST ALT Lactate Dehydrogenase Total Creatine Kinase Troponin T C-Reactive Protein Albumin Urine WBC (Auto) Urine Creatinine Urine Total Protein Complement C3 Coronavirus (PCR) Hepatitis C Antibody Crossmatch 05/14/21 05/14/21 05/14/21 04:26 05:26 06:51 WBC RBC Hgb Hct MCV MCHC RDW Lymph % (Auto) Garden % (Auto) Lymph # (Auto) Garden # (Auto) Seg Neutrophils % Seg Neuts % (Manual) Lymphocytes % (Manual) Monocytes % (Manual) Seg Neutrophils # Seg Neutrophils # Man Lymphocytes # (Manual) Monocytes # (Manual) Haptoglobin PT APTT D-Dimer Heparin Anti-Xa Level ABG pH ABG pO2 ABG HCO3 ABG O2 Saturation ABG Base Excess ABG Hemoglobin Oxyhemoglobin Sodium Potassium 3.4 L Chloride 107.6 H Carbon Dioxide BUN 42 H Creatinine 1.9 H Glucose POC Glucose 51 L 62 L Calcium Phosphorus Magnesium Iron TIBC Ferritin Total Bilirubin AST ALT Lactate Dehydrogenase Total Creatine Kinase Troponin T C-Reactive Protein Albumin Urine WBC (Auto) Urine Creatinine Urine Total Protein Complement C3 Coronavirus (PCR) Hepatitis C Antibody Crossmatch 05/14/21 05/14/21 05/14/21 09:58 12:05 12:08 WBC RBC Hgb Hct MCV MCHC RDW Lymph % (Auto) Garden % (Auto) Lymph # (Auto) Garden # (Auto) Seg Neutrophils % Seg Neuts % (Manual) Lymphocytes % (Manual) Monocytes % (Manual) Seg Neutrophils # Seg Neutrophils # Man Lymphocytes # (Manual) Monocytes # (Manual) Haptoglobin PT APTT D-Dimer Heparin Anti-Xa Level ABG pH ABG pO2 ABG HCO3 ABG O2 Saturation ABG Base Excess ABG Hemoglobin Oxyhemoglobin Sodium Potassium 3.4 L Chloride Carbon Dioxide BUN 36 H Creatinine 1.8 H Glucose 133 H POC Glucose 60 L 127 H Calcium Phosphorus Magnesium Iron TIBC Ferritin Total Bilirubin AST ALT Lactate Dehydrogenase Total Creatine Kinase Troponin T C-Reactive Protein Albumin Urine WBC (Auto) Urine Creatinine Urine Total Protein Complement C3 Coronavirus (PCR) Hepatitis C Antibody Crossmatch 05/14/21 05/14/21 05/15/21 17:20 23:37 05:34 WBC RBC Hgb Hct MCV MCHC RDW Lymph % (Auto) Garden % (Auto) Lymph # (Auto) Garden # (Auto) Seg Neutrophils % Seg Neuts % (Manual) Lymphocytes % (Manual) Monocytes % (Manual) Seg Neutrophils # Seg Neutrophils # Man Lymphocytes # (Manual) Monocytes # (Manual) Haptoglobin PT APTT D-Dimer Heparin Anti-Xa Level ABG pH ABG pO2 ABG HCO3 ABG O2 Saturation ABG Base Excess ABG Hemoglobin Oxyhemoglobin Sodium Potassium Chloride Carbon Dioxide BUN Creatinine Glucose POC Glucose 144 H 115 H 119 H Calcium Phosphorus Magnesium Iron TIBC Ferritin Total Bilirubin AST ALT Lactate Dehydrogenase Total Creatine Kinase Troponin T C-Reactive Protein Albumin Urine WBC (Auto) Urine Creatinine Urine Total Protein Complement C3 Coronavirus (PCR) Hepatitis C Antibody Crossmatch 05/15/21 05/15/21 05/15/21 07:26 07:26 14:35 WBC 13.8 H RBC 3.32 L Hgb 10.0 L Hct 31.2 L MCV MCHC RDW 16.0 H Lymph % (Auto) Garden % (Auto) Lymph # (Auto) Garden # (Auto) Seg Neutrophils % Seg Neuts % (Manual) Lymphocytes % (Manual) Monocytes % (Manual) Seg Neutrophils # Seg Neutrophils # Man Lymphocytes # (Manual) Monocytes # (Manual) Haptoglobin PT APTT D-Dimer Heparin Anti-Xa Level ABG pH ABG pO2 ABG HCO3 ABG O2 Saturation ABG Base Excess ABG Hemoglobin Oxyhemoglobin Sodium 149 H D Potassium 3.5 L Chloride 113.2 H Carbon Dioxide BUN 29 H Creatinine 1.8 H Glucose 113 H POC Glucose 143 H Calcium Phosphorus Magnesium Iron TIBC Ferritin Total Bilirubin AST ALT Lactate Dehydrogenase Total Creatine Kinase Troponin T C-Reactive Protein Albumin Urine WBC (Auto) Urine Creatinine Urine Total Protein Complement C3 Coronavirus (PCR) Hepatitis C Antibody Crossmatch 05/16/21 05/16/21 05/16/21 06:12 08:43 10:05 WBC RBC Hgb Hct MCV MCHC RDW Lymph % (Auto) Garden % (Auto) Lymph # (Auto) Garden # (Auto) Seg Neutrophils % Seg Neuts % (Manual) Lymphocytes % (Manual) Monocytes % (Manual) Seg Neutrophils # Seg Neutrophils # Man Lymphocytes # (Manual) Monocytes # (Manual) Haptoglobin PT APTT D-Dimer Heparin Anti-Xa Level 0.21 L ABG pH ABG pO2 240.8 H ABG HCO3 ABG O2 Saturation 99.4 H ABG Base Excess -2.6 L ABG Hemoglobin 10.7 L Oxyhemoglobin Sodium Potassium Chloride Carbon Dioxide BUN Creatinine Glucose POC Glucose 34 L Calcium Phosphorus Magnesium Iron TIBC Ferritin Total Bilirubin AST ALT Lactate Dehydrogenase Total Creatine Kinase Troponin T C-Reactive Protein Albumin Urine WBC (Auto) Urine Creatinine Urine Total Protein Complement C3 Coronavirus (PCR) Hepatitis C Antibody Crossmatch 05/16/21 05/16/21 05/16/21 10:21 10:21 13:14 WBC 27.6 H RBC Hgb 11.4 L Hct MCV 99 H MCHC 30 L RDW 18.1 H Lymph % (Auto) Garden % (Auto) Lymph # (Auto) Garden # (Auto) Seg Neutrophils % Seg Neuts % (Manual) 83.0 H Lymphocytes % (Manual) 4.0 L Monocytes % (Manual) 9.0 H Seg Neutrophils # Seg Neutrophils # Man 22.9 H Lymphocytes # (Manual) 1.1 L Monocytes # (Manual) 2.5 H Haptoglobin PT APTT D-Dimer Heparin Anti-Xa Level ABG pH ABG pO2 ABG HCO3 ABG O2 Saturation ABG Base Excess ABG Hemoglobin Oxyhemoglobin Sodium Potassium Chloride 108.8 H Carbon Dioxide 17 L BUN 26 H Creatinine 1.9 H Glucose 141 H POC Glucose Calcium Phosphorus Magnesium Iron TIBC Ferritin Total Bilirubin AST ALT Lactate Dehydrogenase Total Creatine Kinase Troponin T 0.503 H* C-Reactive Protein Albumin 3.1 L Urine WBC (Auto) Urine Creatinine Urine Total Protein Complement C3 Coronavirus (PCR) Hepatitis C Antibody Crossmatch 05/16/21 05/17/21 05/17/21 18:40 00:02 04:52 WBC RBC Hgb 8.8 L Hct 28.5 L D MCV MCHC RDW Lymph % (Auto) Garden % (Auto) Lymph # (Auto) Garden # (Auto) Seg Neutrophils % Seg Neuts % (Manual) Lymphocytes % (Manual) Monocytes % (Manual) Seg Neutrophils # Seg Neutrophils # Man Lymphocytes # (Manual) Monocytes # (Manual) Haptoglobin PT APTT D-Dimer Heparin Anti-Xa Level ABG pH ABG pO2 ABG HCO3 ABG O2 Saturation ABG Base Excess ABG Hemoglobin Oxyhemoglobin Sodium Potassium Chloride Carbon Dioxide BUN Creatinine Glucose POC Glucose 114 H Calcium Phosphorus Magnesium Iron TIBC Ferritin Total Bilirubin AST ALT Lactate Dehydrogenase Total Creatine Kinase Troponin T 0.400 H* D C-Reactive Protein Albumin Urine WBC (Auto) Urine Creatinine Urine Total Protein Complement C3 Coronavirus (PCR) Hepatitis C Antibody Crossmatch 05/17/21 05/17/21 05/17/21 04:52 05:15 06:50 WBC RBC Hgb Hct MCV MCHC RDW Lymph % (Auto) Garden % (Auto) Lymph # (Auto) Garden # (Auto) Seg Neutrophils % Seg Neuts % (Manual) Lymphocytes % (Manual) Monocytes % (Manual) Seg Neutrophils # Seg Neutrophils # Man Lymphocytes # (Manual) Monocytes # (Manual) Haptoglobin PT APTT D-Dimer Heparin Anti-Xa Level ABG pH ABG pO2 193.7 H ABG HCO3 27.7 H ABG O2 Saturation 99.2 H ABG Base Excess 3.4 H ABG Hemoglobin 9.2 L Oxyhemoglobin Sodium 146 H Potassium Chloride 110.3 H Carbon Dioxide BUN 33 H Creatinine 2.3 H Glucose 120 H POC Glucose 109 H Calcium Phosphorus Magnesium Iron TIBC Ferritin Total Bilirubin AST ALT Lactate Dehydrogenase Total Creatine Kinase Troponin T C-Reactive Protein Albumin Urine WBC (Auto) Urine Creatinine Urine Total Protein Complement C3 Coronavirus (PCR) Hepatitis C Antibody Crossmatch 05/17/21 05/17/21 05/17/21 10:30 11:33 15:35 WBC RBC Hgb Hct MCV MCHC RDW Lymph % (Auto) Garden % (Auto) Lymph # (Auto) Garden # (Auto) Seg Neutrophils % Seg Neuts % (Manual) Lymphocytes % (Manual) Monocytes % (Manual) Seg Neutrophils # Seg Neutrophils # Man Lymphocytes # (Manual) Monocytes # (Manual) Haptoglobin PT APTT D-Dimer Heparin Anti-Xa Level ABG pH 7.457 H ABG pO2 162.5 H 103.7 H ABG HCO3 27.7 H 27.5 H ABG O2 Saturation ABG Base Excess 3.6 H ABG Hemoglobin 10.1 L 11.5 L Oxyhemoglobin Sodium Potassium Chloride Carbon Dioxide BUN Creatinine Glucose POC Glucose 122 H Calcium Phosphorus Magnesium Iron TIBC Ferritin Total Bilirubin AST ALT Lactate Dehydrogenase Total Creatine Kinase Troponin T C-Reactive Protein Albumin Urine WBC (Auto) Urine Creatinine Urine Total Protein Complement C3 Coronavirus (PCR) Hepatitis C Antibody Crossmatch 05/17/21 05/17/21 05/17/21 16:21 18:18 23:29 WBC RBC Hgb 9.6 L Hct 30.3 L MCV MCHC RDW Lymph % (Auto) Garden % (Auto) Lymph # (Auto) Garden # (Auto) Seg Neutrophils % Seg Neuts % (Manual) Lymphocytes % (Manual) Monocytes % (Manual) Seg Neutrophils # Seg Neutrophils # Man Lymphocytes # (Manual) Monocytes # (Manual) Haptoglobin PT APTT D-Dimer Heparin Anti-Xa Level ABG pH ABG pO2 ABG HCO3 ABG O2 Saturation ABG Base Excess ABG Hemoglobin Oxyhemoglobin Sodium Potassium Chloride Carbon Dioxide BUN Creatinine Glucose POC Glucose 133 H 111 H Calcium Phosphorus Magnesium Iron TIBC Ferritin Total Bilirubin AST ALT Lactate Dehydrogenase Total Creatine Kinase Troponin T C-Reactive Protein Albumin Urine WBC (Auto) Urine Creatinine Urine Total Protein Complement C3 Coronavirus (PCR) Hepatitis C Antibody Crossmatch 05/18/21 05/18/21 05/18/21 04:15 04:15 05:01 WBC 16.8 H RBC 3.03 L Hgb 8.9 L Hct 28.7 L MCV 95 H MCHC 31 L RDW 16.4 H Lymph % (Auto) Garden % (Auto) Lymph # (Auto) Garden # (Auto) Seg Neutrophils % Seg Neuts % (Manual) Lymphocytes % (Manual) Monocytes % (Manual) Seg Neutrophils # Seg Neutrophils # Man Lymphocytes # (Manual) Monocytes # (Manual) Haptoglobin PT APTT D-Dimer Heparin Anti-Xa Level ABG pH ABG pO2 ABG HCO3 ABG O2 Saturation ABG Base Excess ABG Hemoglobin Oxyhemoglobin Sodium Potassium Chloride Carbon Dioxide BUN 40 H Creatinine 2.1 H Glucose 115 H POC Glucose 113 H Calcium Phosphorus Magnesium Iron TIBC Ferritin Total Bilirubin AST ALT Lactate Dehydrogenase Total Creatine Kinase Troponin T C-Reactive Protein Albumin Urine WBC (Auto) Urine Creatinine Urine Total Protein Complement C3 Coronavirus (PCR) Hepatitis C Antibody Crossmatch 05/18/21 05/18/21 05/19/21 11:18 12:50 05:23 WBC 18.5 H RBC 3.31 L Hgb 9.9 L Hct 31.1 L MCV MCHC RDW 16.9 H Lymph % (Auto) Garden % (Auto) Lymph # (Auto) Garden # (Auto) Seg Neutrophils % Seg Neuts % (Manual) Lymphocytes % (Manual) Monocytes % (Manual) Seg Neutrophils # Seg Neutrophils # Man Lymphocytes # (Manual) Monocytes # (Manual) Haptoglobin PT APTT D-Dimer Heparin Anti-Xa Level ABG pH ABG pO2 79.6 L ABG HCO3 28.0 H ABG O2 Saturation ABG Base Excess 3.3 H ABG Hemoglobin 6.2 L Oxyhemoglobin Sodium Potassium Chloride Carbon Dioxide BUN Creatinine Glucose POC Glucose 129 H Calcium Phosphorus Magnesium Iron TIBC Ferritin Total Bilirubin AST ALT Lactate Dehydrogenase Total Creatine Kinase Troponin T C-Reactive Protein Albumin Urine WBC (Auto) Urine Creatinine Urine Total Protein Complement C3 Coronavirus (PCR) Hepatitis C Antibody Crossmatch 05/19/21 05/19/21 05/19/21 05:23 05:23 11:24 WBC RBC Hgb Hct MCV MCHC RDW Lymph % (Auto) Garden % (Auto) Lymph # (Auto) Garden # (Auto) Seg Neutrophils % Seg Neuts % (Manual) Lymphocytes % (Manual) Monocytes % (Manual) Seg Neutrophils # Seg Neutrophils # Man Lymphocytes # (Manual) Monocytes # (Manual) Haptoglobin PT APTT D-Dimer Heparin Anti-Xa Level ABG pH ABG pO2 ABG HCO3 ABG O2 Saturation ABG Base Excess ABG Hemoglobin Oxyhemoglobin Sodium Potassium Chloride Carbon Dioxide BUN 35 H 34 H Creatinine 2.0 H 2.1 H Glucose POC Glucose 111 H Calcium Phosphorus Magnesium Iron TIBC Ferritin Total Bilirubin AST ALT Lactate Dehydrogenase Total Creatine Kinase Troponin T C-Reactive Protein Albumin Urine WBC (Auto) Urine Creatinine Urine Total Protein Complement C3 Coronavirus (PCR) Hepatitis C Antibody Crossmatch 05/19/21 05/19/21 05/19/21 16:33 19:36 23:47 WBC RBC Hgb Hct MCV MCHC RDW Lymph % (Auto) Garden % (Auto) Lymph # (Auto) Garden # (Auto) Seg Neutrophils % Seg Neuts % (Manual) Lymphocytes % (Manual) Monocytes % (Manual) Seg Neutrophils # Seg Neutrophils # Man Lymphocytes # (Manual) Monocytes # (Manual) Haptoglobin PT APTT 72.5 H* D-Dimer Heparin Anti-Xa Level ABG pH ABG pO2 ABG HCO3 ABG O2 Saturation ABG Base Excess ABG Hemoglobin Oxyhemoglobin Sodium Potassium Chloride Carbon Dioxide BUN Creatinine Glucose POC Glucose 131 H 122 H Calcium Phosphorus Magnesium Iron TIBC Ferritin Total Bilirubin AST ALT Lactate Dehydrogenase Total Creatine Kinase Troponin T C-Reactive Protein Albumin Urine WBC (Auto) Urine Creatinine Urine Total Protein Complement C3 Coronavirus (PCR) Hepatitis C Antibody Crossmatch 05/20/21 05/20/21 05/20/21 05:14 05:14 06:12 WBC 19.7 H RBC 3.19 L Hgb 9.5 L Hct 29.9 L MCV MCHC RDW 17.3 H Lymph % (Auto) Garden % (Auto) Lymph # (Auto) Garden # (Auto) Seg Neutrophils % Seg Neuts % (Manual) Lymphocytes % (Manual) Monocytes % (Manual) Seg Neutrophils # Seg Neutrophils # Man Lymphocytes # (Manual) Monocytes # (Manual) Haptoglobin PT APTT D-Dimer Heparin Anti-Xa Level ABG pH ABG pO2 ABG HCO3 ABG O2 Saturation ABG Base Excess ABG Hemoglobin Oxyhemoglobin Sodium Potassium Chloride Carbon Dioxide BUN 31 H Creatinine 2.1 H Glucose 130 H POC Glucose 120 H Calcium Phosphorus Magnesium Iron TIBC Ferritin Total Bilirubin AST ALT Lactate Dehydrogenase Total Creatine Kinase Troponin T C-Reactive Protein Albumin Urine WBC (Auto) Urine Creatinine Urine Total Protein Complement C3 Coronavirus (PCR) Hepatitis C Antibody Crossmatch 05/20/21 05/20/21 05/20/21 11:10 18:12 23:55 WBC RBC Hgb Hct MCV MCHC RDW Lymph % (Auto) Garden % (Auto) Lymph # (Auto) Garden # (Auto) Seg Neutrophils % Seg Neuts % (Manual) Lymphocytes % (Manual) Monocytes % (Manual) Seg Neutrophils # Seg Neutrophils # Man Lymphocytes # (Manual) Monocytes # (Manual) Haptoglobin PT APTT D-Dimer Heparin Anti-Xa Level ABG pH ABG pO2 ABG HCO3 ABG O2 Saturation ABG Base Excess ABG Hemoglobin Oxyhemoglobin Sodium Potassium Chloride Carbon Dioxide BUN Creatinine Glucose POC Glucose 152 H 137 H 146 H Calcium Phosphorus Magnesium Iron TIBC Ferritin Total Bilirubin AST ALT Lactate Dehydrogenase Total Creatine Kinase Troponin T C-Reactive Protein Albumin Urine WBC (Auto) Urine Creatinine Urine Total Protein Complement C3 Coronavirus (PCR) Hepatitis C Antibody Crossmatch 05/21/21 05/21/21 05/21/21 03:12 03:12 05:53 WBC 26.2 H RBC 2.58 L Hgb 7.7 L Hct 24.2 L MCV MCHC RDW 17.8 H Lymph % (Auto) Garden % (Auto) Lymph # (Auto) Garden # (Auto) Seg Neutrophils % Seg Neuts % (Manual) Lymphocytes % (Manual) Monocytes % (Manual) Seg Neutrophils # Seg Neutrophils # Man Lymphocytes # (Manual) Monocytes # (Manual) Haptoglobin PT APTT D-Dimer Heparin Anti-Xa Level ABG pH ABG pO2 ABG HCO3 ABG O2 Saturation ABG Base Excess ABG Hemoglobin Oxyhemoglobin Sodium 133 L Potassium 5.7 H D Chloride Carbon Dioxide 21 L BUN 49 H Creatinine 2.6 H Glucose 160 H POC Glucose 118 H Calcium Phosphorus Magnesium Iron TIBC Ferritin Total Bilirubin AST ALT Lactate Dehydrogenase Total Creatine Kinase Troponin T C-Reactive Protein Albumin Urine WBC (Auto) Urine Creatinine Urine Total Protein Complement C3 Coronavirus (PCR) Hepatitis C Antibody Crossmatch 05/21/21 05/22/21 05/22/21 18:00 00:13 05:05 WBC RBC Hgb Hct MCV MCHC RDW Lymph % (Auto) Garden % (Auto) Lymph # (Auto) Garden # (Auto) Seg Neutrophils % Seg Neuts % (Manual) Lymphocytes % (Manual) Monocytes % (Manual) Seg Neutrophils # Seg Neutrophils # Man Lymphocytes # (Manual) Monocytes # (Manual) Haptoglobin PT APTT D-Dimer Heparin Anti-Xa Level ABG pH 7.500 H ABG pO2 56.6 L ABG HCO3 ABG O2 Saturation ABG Base Excess ABG Hemoglobin 6.7 L Oxyhemoglobin 94.8 L Sodium 136 L Potassium 5.2 H Chloride Carbon Dioxide BUN 59 H Creatinine 2.6 H Glucose 138 H POC Glucose 109 H Calcium Phosphorus Magnesium Iron TIBC Ferritin Total Bilirubin AST ALT Lactate Dehydrogenase Total Creatine Kinase Troponin T C-Reactive Protein Albumin Urine WBC (Auto) Urine Creatinine Urine Total Protein Complement C3 Coronavirus (PCR) Hepatitis C Antibody Crossmatch 05/22/21 05/22/21 05/22/21 06:07 11:49 16:33 WBC RBC Hgb Hct MCV MCHC RDW Lymph % (Auto) Garden % (Auto) Lymph # (Auto) Garden # (Auto) Seg Neutrophils % Seg Neuts % (Manual) Lymphocytes % (Manual) Monocytes % (Manual) Seg Neutrophils # Seg Neutrophils # Man Lymphocytes # (Manual) Monocytes # (Manual) Haptoglobin PT APTT D-Dimer Heparin Anti-Xa Level ABG pH ABG pO2 ABG HCO3 ABG O2 Saturation ABG Base Excess ABG Hemoglobin Oxyhemoglobin Sodium Potassium Chloride Carbon Dioxide BUN Creatinine Glucose POC Glucose 110 H 117 H 119 H Calcium Phosphorus Magnesium Iron TIBC Ferritin Total Bilirubin AST ALT Lactate Dehydrogenase Total Creatine Kinase Troponin T C-Reactive Protein Albumin Urine WBC (Auto) Urine Creatinine Urine Total Protein Complement C3 Coronavirus (PCR) Hepatitis C Antibody Crossmatch 05/23/21 05/23/21 05/23/21 04:48 04:48 07:12 WBC 21.1 H RBC 2.03 L Hgb 6.2 L Hct 19.4 L* MCV 96 H MCHC RDW 17.5 H Lymph % (Auto) Garden % (Auto) Lymph # (Auto) Garden # (Auto) Seg Neutrophils % Seg Neuts % (Manual) Lymphocytes % (Manual) Monocytes % (Manual) Seg Neutrophils # Seg Neutrophils # Man Lymphocytes # (Manual) Monocytes # (Manual) Haptoglobin PT APTT D-Dimer Heparin Anti-Xa Level ABG pH ABG pO2 ABG HCO3 ABG O2 Saturation ABG Base Excess ABG Hemoglobin Oxyhemoglobin Sodium Potassium Chloride Carbon Dioxide BUN 62 H Creatinine 2.8 H Glucose 110 H POC Glucose Calcium Phosphorus Magnesium Iron TIBC Ferritin Total Bilirubin AST ALT Lactate Dehydrogenase Total Creatine Kinase Troponin T C-Reactive Protein Albumin Urine WBC (Auto) Urine Creatinine Urine Total Protein Complement C3 Coronavirus (PCR) Hepatitis C Antibody Crossmatch See Detail 05/23/21 05/23/21 05/23/21 11:19 14:15 16:12 WBC RBC Hgb Hct MCV MCHC RDW Lymph % (Auto) Garden % (Auto) Lymph # (Auto) Garden # (Auto) Seg Neutrophils % Seg Neuts % (Manual) Lymphocytes % (Manual) Monocytes % (Manual) Seg Neutrophils # Seg Neutrophils # Man Lymphocytes # (Manual) Monocytes # (Manual) Haptoglobin PT APTT D-Dimer Heparin Anti-Xa Level ABG pH ABG pO2 294.7 H ABG HCO3 ABG O2 Saturation 99.5 H ABG Base Excess ABG Hemoglobin 6.5 L Oxyhemoglobin Sodium Potassium Chloride Carbon Dioxide BUN Creatinine Glucose POC Glucose 127 H 120 H Calcium Phosphorus Magnesium Iron TIBC Ferritin Total Bilirubin AST ALT Lactate Dehydrogenase Total Creatine Kinase Troponin T C-Reactive Protein Albumin Urine WBC (Auto) Urine Creatinine Urine Total Protein Complement C3 Coronavirus (PCR) Hepatitis C Antibody Crossmatch 05/23/21 05/23/21 05/23/21 16:30 16:30 18:54 WBC RBC Hgb Hct MCV MCHC RDW Lymph % (Auto) Garden % (Auto) Lymph # (Auto) Garden # (Auto) Seg Neutrophils % Seg Neuts % (Manual) Lymphocytes % (Manual) Monocytes % (Manual) Seg Neutrophils # Seg Neutrophils # Man Lymphocytes # (Manual) Monocytes # (Manual) Haptoglobin 254 H PT APTT D-Dimer Heparin Anti-Xa Level ABG pH ABG pO2 ABG HCO3 ABG O2 Saturation ABG Base Excess ABG Hemoglobin Oxyhemoglobin Sodium Potassium Chloride Carbon Dioxide BUN Creatinine Glucose POC Glucose Calcium Phosphorus Magnesium Iron TIBC Ferritin Total Bilirubin AST ALT Lactate Dehydrogenase Total Creatine Kinase Troponin T C-Reactive Protein Albumin Urine WBC (Auto) 12.0 H Urine Creatinine 100.1 H Urine Total Protein Complement C3 Coronavirus (PCR) Hepatitis C Antibody Crossmatch 05/23/21 05/23/21 05/24/21 18:54 Unknown 00:11 WBC 21.7 H RBC 2.40 L Hgb 7.1 L Hct 22.9 L MCV 96 H MCHC 31 L RDW 16.8 H Lymph % (Auto) Garden % (Auto) Lymph # (Auto) Garden # (Auto) Seg Neutrophils % Seg Neuts % (Manual) Lymphocytes % (Manual) Monocytes % (Manual) Seg Neutrophils # Seg Neutrophils # Man Lymphocytes # (Manual) Monocytes # (Manual) Haptoglobin PT APTT D-Dimer Heparin Anti-Xa Level ABG pH ABG pO2 ABG HCO3 ABG O2 Saturation ABG Base Excess ABG Hemoglobin Oxyhemoglobin Sodium Potassium Chloride Carbon Dioxide BUN Creatinine Glucose POC Glucose 110 H Calcium Phosphorus Magnesium Iron 10 L TIBC 151 L Ferritin Total Bilirubin AST ALT Lactate Dehydrogenase 311 H Total Creatine Kinase Troponin T C-Reactive Protein Albumin Urine WBC (Auto) Urine Creatinine Urine Total Protein Complement C3 Coronavirus (PCR) Hepatitis C Antibody Crossmatch 05/24/21 05/24/21 05/24/21 04:11 04:11 05:10 WBC 16.7 H RBC 2.19 L Hgb 6.4 L Hct 20.5 L MCV MCHC 31 L RDW 17.0 H Lymph % (Auto) Garden % (Auto) Lymph # (Auto) Garden # (Auto) Seg Neutrophils % Seg Neuts % (Manual) Lymphocytes % (Manual) Monocytes % (Manual) Seg Neutrophils # Seg Neutrophils # Man Lymphocytes # (Manual) Monocytes # (Manual) Haptoglobin PT APTT D-Dimer Heparin Anti-Xa Level ABG pH ABG pO2 ABG HCO3 ABG O2 Saturation ABG Base Excess ABG Hemoglobin Oxyhemoglobin Sodium Potassium Chloride Carbon Dioxide BUN 78 H Creatinine 2.8 H Glucose 119 H POC Glucose 108 H Calcium Phosphorus 5.30 H Magnesium 2.60 H Iron TIBC Ferritin Total Bilirubin AST 152 H ALT 125 H Lactate Dehydrogenase Total Creatine Kinase Troponin T C-Reactive Protein Albumin 2.5 L Urine WBC (Auto) Urine Creatinine Urine Total Protein Complement C3 Coronavirus (PCR) Hepatitis C Antibody Crossmatch 05/24/21 05/25/21 05/25/21 09:55 04:25 04:25 WBC 13.8 H RBC 2.78 L Hgb 8.3 L Hct 25.6 L MCV MCHC RDW 16.2 H Lymph % (Auto) Garden % (Auto) Lymph # (Auto) Garden # (Auto) Seg Neutrophils % Seg Neuts % (Manual) Lymphocytes % (Manual) Monocytes % (Manual) Seg Neutrophils # Seg Neutrophils # Man Lymphocytes # (Manual) Monocytes # (Manual) Haptoglobin PT APTT D-Dimer Heparin Anti-Xa Level ABG pH ABG pO2 141.9 H ABG HCO3 ABG O2 Saturation ABG Base Excess ABG Hemoglobin 6.5 L Oxyhemoglobin Sodium Potassium Chloride Carbon Dioxide BUN 76 H Creatinine 2.6 H Glucose 110 H POC Glucose Calcium 8.1 L Phosphorus Magnesium Iron TIBC Ferritin Total Bilirubin AST ALT Lactate Dehydrogenase Total Creatine Kinase Troponin T C-Reactive Protein Albumin Urine WBC (Auto) Urine Creatinine Urine Total Protein Complement C3 Coronavirus (PCR) Hepatitis C Antibody Crossmatch 05/25/21 05/25/21 05/25/21 05:19 09:40 17:11 WBC RBC Hgb Hct MCV MCHC RDW Lymph % (Auto) Garden % (Auto) Lymph # (Auto) Garden # (Auto) Seg Neutrophils % Seg Neuts % (Manual) Lymphocytes % (Manual) Monocytes % (Manual) Seg Neutrophils # Seg Neutrophils # Man Lymphocytes # (Manual) Monocytes # (Manual) Haptoglobin PT APTT D-Dimer Heparin Anti-Xa Level ABG pH ABG pO2 150.9 H ABG HCO3 ABG O2 Saturation ABG Base Excess ABG Hemoglobin 7.0 L Oxyhemoglobin Sodium Potassium Chloride Carbon Dioxide BUN Creatinine Glucose POC Glucose 123 H 108 H Calcium Phosphorus Magnesium Iron TIBC Ferritin Total Bilirubin AST ALT Lactate Dehydrogenase Total Creatine Kinase Troponin T C-Reactive Protein Albumin Urine WBC (Auto) Urine Creatinine Urine Total Protein Complement C3 Coronavirus (PCR) Hepatitis C Antibody Crossmatch 05/25/21 05/26/21 05/26/21 23:37 05:02 07:09 WBC RBC Hgb Hct MCV MCHC RDW Lymph % (Auto) Garden % (Auto) Lymph # (Auto) Garden # (Auto) Seg Neutrophils % Seg Neuts % (Manual) Lymphocytes % (Manual) Monocytes % (Manual) Seg Neutrophils # Seg Neutrophils # Man Lymphocytes # (Manual) Monocytes # (Manual) Haptoglobin PT APTT D-Dimer Heparin Anti-Xa Level ABG pH ABG pO2 ABG HCO3 ABG O2 Saturation ABG Base Excess ABG Hemoglobin Oxyhemoglobin Sodium Potassium Chloride Carbon Dioxide BUN 62 H Creatinine 2.1 H Glucose 112 H POC Glucose 117 H 112 H Calcium 8.2 L Phosphorus Magnesium Iron TIBC Ferritin Total Bilirubin AST ALT Lactate Dehydrogenase Total Creatine Kinase Troponin T C-Reactive Protein Albumin Urine WBC (Auto) Urine Creatinine Urine Total Protein Complement C3 Coronavirus (PCR) Hepatitis C Antibody Crossmatch 05/26/21 05/26/21 05/26/21 07:09 09:10 09:50 WBC 15.8 H RBC 3.21 L Hgb 9.2 L Hct 29.6 L MCV MCHC 31 L RDW 16.6 H Lymph % (Auto) Garden % (Auto) Lymph # (Auto) Garden # (Auto) Seg Neutrophils % Seg Neuts % (Manual) Lymphocytes % (Manual) Monocytes % (Manual) Seg Neutrophils # Seg Neutrophils # Man Lymphocytes # (Manual) Monocytes # (Manual) Haptoglobin PT APTT D-Dimer Heparin Anti-Xa Level ABG pH ABG pO2 135.5 H ABG HCO3 ABG O2 Saturation ABG Base Excess ABG Hemoglobin 9.6 L Oxyhemoglobin Sodium Potassium Chloride Carbon Dioxide BUN Creatinine Glucose POC Glucose Calcium Phosphorus Magnesium Iron TIBC Ferritin Total Bilirubin AST ALT Lactate Dehydrogenase Total Creatine Kinase Troponin T C-Reactive Protein Albumin Urine WBC (Auto) 38.0 H Urine Creatinine Urine Total Protein Complement C3 Coronavirus (PCR) Hepatitis C Antibody Crossmatch 05/26/21 05/26/21 05/27/21 11:20 18:24 00:24 WBC RBC Hgb Hct MCV MCHC RDW Lymph % (Auto) Garden % (Auto) Lymph # (Auto) Garden # (Auto) Seg Neutrophils % Seg Neuts % (Manual) Lymphocytes % (Manual) Monocytes % (Manual) Seg Neutrophils # Seg Neutrophils # Man Lymphocytes # (Manual) Monocytes # (Manual) Haptoglobin PT APTT D-Dimer Heparin Anti-Xa Level ABG pH ABG pO2 ABG HCO3 ABG O2 Saturation ABG Base Excess ABG Hemoglobin Oxyhemoglobin Sodium Potassium Chloride Carbon Dioxide BUN Creatinine Glucose POC Glucose 109 H 116 H 115 H Calcium Phosphorus Magnesium Iron TIBC Ferritin Total Bilirubin AST ALT Lactate Dehydrogenase Total Creatine Kinase Troponin T C-Reactive Protein Albumin Urine WBC (Auto) Urine Creatinine Urine Total Protein Complement C3 Coronavirus (PCR) Hepatitis C Antibody Crossmatch 05/27/21 05/27/21 05/27/21 05:12 07:47 07:47 WBC 15.5 H RBC 2.86 L Hgb 8.8 L Hct 26.1 L MCV MCHC RDW 16.1 H Lymph % (Auto) Garden % (Auto) Lymph # (Auto) Garden # (Auto) Seg Neutrophils % Seg Neuts % (Manual) Lymphocytes % (Manual) Monocytes % (Manual) Seg Neutrophils # Seg Neutrophils # Man Lymphocytes # (Manual) Monocytes # (Manual) Haptoglobin PT APTT D-Dimer Heparin Anti-Xa Level ABG pH ABG pO2 ABG HCO3 ABG O2 Saturation ABG Base Excess ABG Hemoglobin Oxyhemoglobin Sodium Potassium Chloride 107.3 H Carbon Dioxide BUN 56 H Creatinine 1.8 H Glucose 108 H POC Glucose 108 H Calcium 8.1 L Phosphorus Magnesium Iron TIBC Ferritin Total Bilirubin AST ALT Lactate Dehydrogenase Total Creatine Kinase Troponin T C-Reactive Protein Albumin Urine WBC (Auto) Urine Creatinine Urine Total Protein Complement C3 Coronavirus (PCR) Hepatitis C Antibody Crossmatch 05/27/21 05/27/21 05/28/21 09:20 18:01 00:09 WBC RBC Hgb Hct MCV MCHC RDW Lymph % (Auto) Garden % (Auto) Lymph # (Auto) Garden # (Auto) Seg Neutrophils % Seg Neuts % (Manual) Lymphocytes % (Manual) Monocytes % (Manual) Seg Neutrophils # Seg Neutrophils # Man Lymphocytes # (Manual) Monocytes # (Manual) Haptoglobin PT APTT D-Dimer Heparin Anti-Xa Level ABG pH ABG pO2 115.2 H ABG HCO3 ABG O2 Saturation ABG Base Excess ABG Hemoglobin 9.2 L Oxyhemoglobin Sodium Potassium Chloride Carbon Dioxide BUN Creatinine Glucose POC Glucose 109 H 114 H Calcium Phosphorus Magnesium Iron TIBC Ferritin Total Bilirubin AST ALT Lactate Dehydrogenase Total Creatine Kinase Troponin T C-Reactive Protein Albumin Urine WBC (Auto) Urine Creatinine Urine Total Protein Complement C3 Coronavirus (PCR) Hepatitis C Antibody Crossmatch 05/28/21 05/28/21 05/28/21 04:04 04:04 04:04 WBC 14.1 H RBC 2.87 L Hgb 8.6 L Hct 26.5 L MCV MCHC RDW 15.9 H Lymph % (Auto) Garden % (Auto) Lymph # (Auto) Garden # (Auto) Seg Neutrophils % Seg Neuts % (Manual) 93.0 H Lymphocytes % (Manual) 2.0 L Monocytes % (Manual) Seg Neutrophils # Seg Neutrophils # Man 13.1 H Lymphocytes # (Manual) 0.3 L Monocytes # (Manual) Haptoglobin PT APTT D-Dimer Heparin Anti-Xa Level ABG pH ABG pO2 ABG HCO3 ABG O2 Saturation ABG Base Excess ABG Hemoglobin Oxyhemoglobin Sodium Potassium Chloride Carbon Dioxide BUN 54 H Creatinine 1.7 H Glucose 116 H POC Glucose Calcium 7.7 L Phosphorus Magnesium Iron TIBC Ferritin Total Bilirubin AST ALT Lactate Dehydrogenase Total Creatine Kinase Troponin T C-Reactive Protein 13.20 H Albumin Urine WBC (Auto) Urine Creatinine Urine Total Protein Complement C3 Coronavirus (PCR) Hepatitis C Antibody Crossmatch 05/28/21 05/28/21 05/28/21 05:32 12:06 17:30 WBC RBC Hgb Hct MCV MCHC RDW Lymph % (Auto) Garden % (Auto) Lymph # (Auto) Garden # (Auto) Seg Neutrophils % Seg Neuts % (Manual) Lymphocytes % (Manual) Monocytes % (Manual) Seg Neutrophils # Seg Neutrophils # Man Lymphocytes # (Manual) Monocytes # (Manual) Haptoglobin PT APTT D-Dimer Heparin Anti-Xa Level ABG pH ABG pO2 ABG HCO3 ABG O2 Saturation ABG Base Excess ABG Hemoglobin Oxyhemoglobin Sodium Potassium Chloride Carbon Dioxide BUN Creatinine Glucose POC Glucose 119 H 112 H 114 H Calcium Phosphorus Magnesium Iron TIBC Ferritin Total Bilirubin AST ALT Lactate Dehydrogenase Total Creatine Kinase Troponin T C-Reactive Protein Albumin Urine WBC (Auto) Urine Creatinine Urine Total Protein Complement C3 Coronavirus (PCR) Hepatitis C Antibody Crossmatch 05/28/21 05/29/21 05/29/21 23:46 05:16 11:16 WBC 12.2 H RBC 2.94 L Hgb 8.7 L Hct 27.2 L MCV MCHC RDW 15.8 H Lymph % (Auto) Garden % (Auto) Lymph # (Auto) Garden # (Auto) Seg Neutrophils % Seg Neuts % (Manual) Lymphocytes % (Manual) Monocytes % (Manual) Seg Neutrophils # Seg Neutrophils # Man Lymphocytes # (Manual) Monocytes # (Manual) Haptoglobin PT APTT D-Dimer Heparin Anti-Xa Level ABG pH ABG pO2 ABG HCO3 ABG O2 Saturation ABG Base Excess ABG Hemoglobin Oxyhemoglobin Sodium Potassium Chloride Carbon Dioxide BUN Creatinine Glucose POC Glucose 108 H 113 H Calcium Phosphorus Magnesium Iron TIBC Ferritin Total Bilirubin AST ALT Lactate Dehydrogenase Total Creatine Kinase Troponin T C-Reactive Protein Albumin Urine WBC (Auto) Urine Creatinine Urine Total Protein Complement C3 Coronavirus (PCR) Hepatitis C Antibody Crossmatch 05/29/21 05/29/21 05/29/21 11:16 17:25 23:26 WBC RBC Hgb Hct MCV MCHC RDW Lymph % (Auto) Garden % (Auto) Lymph # (Auto) Garden # (Auto) Seg Neutrophils % Seg Neuts % (Manual) Lymphocytes % (Manual) Monocytes % (Manual) Seg Neutrophils # Seg Neutrophils # Man Lymphocytes # (Manual) Monocytes # (Manual) Haptoglobin PT APTT D-Dimer Heparin Anti-Xa Level ABG pH ABG pO2 ABG HCO3 ABG O2 Saturation ABG Base Excess ABG Hemoglobin Oxyhemoglobin Sodium Potassium Chloride Carbon Dioxide BUN 50 H Creatinine 1.5 H Glucose 117 H POC Glucose 115 H 110 H Calcium 8.0 L Phosphorus Magnesium Iron TIBC Ferritin Total Bilirubin AST ALT Lactate Dehydrogenase Total Creatine Kinase Troponin T C-Reactive Protein Albumin Urine WBC (Auto) Urine Creatinine Urine Total Protein Complement C3 Coronavirus (PCR) Hepatitis C Antibody Crossmatch 05/30/21 05/30/21 05/30/21 05:07 05:11 11:30 WBC RBC Hgb Hct MCV MCHC RDW Lymph % (Auto) Garden % (Auto) Lymph # (Auto) Garden # (Auto) Seg Neutrophils % Seg Neuts % (Manual) Lymphocytes % (Manual) Monocytes % (Manual) Seg Neutrophils # Seg Neutrophils # Man Lymphocytes # (Manual) Monocytes # (Manual) Haptoglobin PT APTT D-Dimer Heparin Anti-Xa Level ABG pH ABG pO2 ABG HCO3 ABG O2 Saturation ABG Base Excess ABG Hemoglobin Oxyhemoglobin Sodium Potassium Chloride Carbon Dioxide BUN 55 H Creatinine 1.5 H Glucose 129 H POC Glucose 113 H 110 H Calcium 8.2 L Phosphorus Magnesium Iron TIBC Ferritin Total Bilirubin AST ALT Lactate Dehydrogenase Total Creatine Kinase Troponin T C-Reactive Protein Albumin Urine WBC (Auto) Urine Creatinine Urine Total Protein Complement C3 Coronavirus (PCR) Hepatitis C Antibody Crossmatch 05/30/21 05/31/21 05/31/21 17:53 04:11 04:11 WBC RBC 3.12 L Hgb 9.3 L Hct 28.8 L MCV MCHC RDW 16.1 H Lymph % (Auto) Garden % (Auto) Lymph # (Auto) Garden # (Auto) Seg Neutrophils % Seg Neuts % (Manual) Lymphocytes % (Manual) Monocytes % (Manual) Seg Neutrophils # Seg Neutrophils # Man Lymphocytes # (Manual) Monocytes # (Manual) Haptoglobin PT APTT D-Dimer Heparin Anti-Xa Level ABG pH ABG pO2 ABG HCO3 ABG O2 Saturation ABG Base Excess ABG Hemoglobin Oxyhemoglobin Sodium Potassium Chloride Carbon Dioxide BUN 50 H Creatinine 1.4 H Glucose 117 H POC Glucose 107 H Calcium 8.0 L Phosphorus Magnesium Iron TIBC Ferritin Total Bilirubin AST ALT Lactate Dehydrogenase Total Creatine Kinase Troponin T C-Reactive Protein Albumin Urine WBC (Auto) Urine Creatinine Urine Total Protein Complement C3 Coronavirus (PCR) Hepatitis C Antibody Crossmatch 05/31/21 11:36 WBC RBC Hgb Hct MCV MCHC RDW Lymph % (Auto) Garden % (Auto) Lymph # (Auto) Garden # (Auto) Seg Neutrophils % Seg Neuts % (Manual) Lymphocytes % (Manual) Monocytes % (Manual) Seg Neutrophils # Seg Neutrophils # Man Lymphocytes # (Manual) Monocytes # (Manual) Haptoglobin PT APTT D-Dimer Heparin Anti-Xa Level ABG pH ABG pO2 ABG HCO3 ABG O2 Saturation ABG Base Excess ABG Hemoglobin Oxyhemoglobin Sodium Potassium Chloride Carbon Dioxide BUN Creatinine Glucose POC Glucose 109 H Calcium Phosphorus Magnesium Iron TIBC Ferritin Total Bilirubin AST ALT Lactate Dehydrogenase Total Creatine Kinase Troponin T C-Reactive Protein Albumin Urine WBC (Auto) Urine Creatinine Urine Total Protein Complement C3 Coronavirus (PCR) Hepatitis C Antibody Crossmatch Allied health notes reviewed: nursing
[2021-05-31] MEDS: ACETAMINOPHEN 325 MG TAB PO PRN (20:16)
[2021-05-31] MEDS: POLYETHYLENE GLYCOL 3350 17 GM POWDER PO SCH (21:15)
[2021-06-01 06:15] LABS: Hemoglobin 9.1 gm/dl (11.8-15.2); Mean Corpuscular HGB Conc 32 % (32-34); Mean Corpuscular Volume 92 fl (84-94); Platelet Count 440 K/mm3 (140-440); Red Blood Count 3.14 M/mm3 (3.65-5.03); Red Cell Distribution Width 16.3 % (13.2-15.2)
[2021-06-01] MEDS: hydrALAZINE 25 MG TAB PO SCH ×3 (06:17→21:11)
[2021-06-01] MEDS: METOPROLOL TARTRATE 25 MG TAB FEEDTUBE SCH ×3 (08:16→21:11)
[2021-06-01] MEDS: HEPARIN 5,000 UNIT/1 ML VIAL SUB-Q SCH ×2 (09:55→21:11)
[2021-06-01] MEDS: ERTAPENEM 1 GM in SODIUM CHLORIDE 0.9% 50 ML IV SCH (09:55)
[2021-06-01] MEDS: LANSOPRAZOLE 30 MG SOLUTAB FEEDTUBE SCH ×2 (09:55→21:11)
--- NOTE | 2021-06-01 11:27 | Progress Note ---
<JANUSZ PETERSEN - Last Filed: 06/01/21 18:17> Assessment and Plan Assessment and plan: This is a homeless 56-year-old male with past medical history of nicotine and cocaine abuse, atrial fibrillation, hypertension and chronic medication noncompliance admitted for acute hypoxic respiratory failure 2/2 COVID pneumonia s/p X3 intubation. Remains in the ICU on ventilatory support. Hospital Course to Date: 05/04/2021. 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 However, patient with elevated creatinine therefore will hold off on cath evaluation. Nephrology consultation for acute kidney injury. Etiology likely secondary to vasomotor nephropathy/dehydration. We will start IV fluid hydration. Check renal ultrasound to rule out obstructive uropathy. We will resume home medications for the accelerated hypertension 05/05/2021. Echocardiogram reveals EF 35-40% with moderate concentric left ventricular hypertrophy. Moderate global hypokinesis of left ventricle. Mild mitral regurgitation. Mild pulmonary hypertension. Troponins are believed to be elevated in the setting of acute kidney injury. No beta-blockers due to cocaine use continue heparin and nitro drip. Continue CIWA protocol. Await urine studies 05/06/2021. Patient decompensated yesterday with worsening respiratory failure and difficulty to protect airway. Patient was breathing sonorously, and hypoxic. Patient was intubated and currently is on mechanical ventilation. Patient with AC mode ventilation rate of 20, tidal volume 450, FiO2 40% and PEEP of 6. COVID PCR testing on 05/05/2021 was found to be positive. Echocardiogram completed on this admission shows worsening EF from August 2020. Echocardiogram now reveals moderate concentric left ventricular hypertrophy with moderate global hypokinesis and EF of 35-40%. Mild pulmonary hypertension. 05/08: Continue current management, renal stable, LFTs stable and if improved will start on statin therapy. 05/09: Patient is febrile, will panculture, PSV today. CRP pending. Mucoid discharge noted from meatus which was sent for culture. Hypernatremia persists, free water flushes increased 05/10: PSV trial per CCM, T-max 102.3, given mildly elevated procalcitonin started on ceftriaxone 2 g every 24 for 2 days per ID. Overnight patient had atrial fibrillation which was treated with Cardizem drip and converted to sinus rhythm. Metoprolol p.o. increased to 3 times daily. 05/11: Patient still running fevers and if still febrile tomorrow will escalate to cefepime per ID as he is currently on ceftriaxone, CCM attempted PSV but patient became agitated and was switched back to pressure control. Lower extremity ultrasound shows acute DVT and started on heparin drip. Started on scheduled Librium. Patient remains with hypernatremia and elevated creatinine and on IV fluids. Free water flushes adjusted. Started on vancomycin today 05/12: Patient placed on pressure support trial without fentanyl, hypernatremia improving, hyperkalemia noted. Slight improvement to renal function. 05/13: Patient was extubated today, ID change antibiotics to Zosyn for Enterococcus, was started tapering Librium in the morning, renal function slightly improved. Possible transfer to floor tomorrow. ST evaluation for swallow ordered. 05/14: Patient became hypoglycemic overnight and started on dextrose IV fluids. Accu-Chek fingersticks have been low but on a.m. BMP patient blood glucose is 100. Other BMP pending. Feeding tube replaced due to need for enteral access and patient being severely confused. Renal functions remains the same. Upon confirmation will restart tube feedings, p.o. medications and free water flushes. 05/15: Remains confused/somnolent on my encounter. Librium taper in 24hrs per PCCM recs. Remains hypertensive. Added amlodipine 10 mg NG and labetalol prn. ST eval today but doubt he will participate. Potassium replaced. Renal function improving overall, however, hypernatremic. Inc TF FWF to 250 cc q4hr. 05/16: Respiratory distress this AM, hypoxic in 60's not protecting airway. Required intubation, patient now ICU patient. Reduce fluid to FWF only, IVF d/c off jun. CXR ordered demonstrates pulmonary edema. Lasix 40 mg IV bid ordered. Troponin elevated, continue heparin gtt. Would recommend decreasing sedating medications at this point, agree with librium taper. 05/17: Patient remains on the vent and sedated, RASS -3. Plan for possible sedation vacation today. D/w CCM plan to wean for possible extubation on the v ent. 2: Tolerated 4hrs of sedation vacation yesterday, on low dose fentanyl this am. Patient is tolerating PST this am. Plan to wean off sedation and wean vent setting for possible extubation today. 2/3: s/p extubation now stable on 3L NC. Lethargic this am, will decreased Seroquel. Speech consult for swallow eval, continue enteral nutrition via NGT for now. Hypertensive throughout the night, Norvac added. Remains on heparin gtt for DVT, might need to transition to PO AC, will d/w CCM. Patient is stable for transfer to [facility] 05/20: Continue sepsis work up considering fever, aspiration precautions. Discussed with nursing staff will hold am seroquel. Continue tube feed. RENAL Function remains relatively stable, possible has peaked. 05/21: Patient seen and examined, resting but still with mild increase wob, CXR concerning with right lobar infiltrate, continue antibiotics, will give kayxalate in addition due to hyperkalemia, Will discuss with ID due to rising lobito ekocytosis possible worsening sepsis. 05/22: Patient remains on BIPAP, still sedated appearing, cxr concerning for possible aspiration, unfortunately still worsening renal status. Will continue abx and continue collaboration with pulmonary team to ensure no over sedation. Continue abx, will add kayaxlate 05/23: Patient noted to have severe anemia today, will initiate GI work up and also Hemolysis work up. Will discuss with Vascular about possible IVC filter placement. Continue BIPAP, goal is to see if we can avert re-intubation. Transfuse 1 UNIT PRBC, Will discuss with Pulmonary about holding Eliquis for now. Renal failure still ongoing. 05/24: Patient had a positive occult and was anemic again today and received PRBC. GI was consulted. Repeat Dopplers are negative for DVT vascular recommends a CT/SQ heparin if tolerated and nephrology would like to increase IV fluids per FeNa results. Decrease metoprolol, seroquel and librium. surgery consult for trach/peg 05/25: RT decreased FiO2. GI signed off, Cr slightly improved, Anemia improved. Tmax 101.4 noted, abx per ID. 05/26: Patient had a temperature spike and was recultured, no plan today changes made as patient continues to breathe over the vent, one time dose of fent patch, repeat dopllar in 1 week per [facility], miralax q hs 05/27: Added vancomycin per ID, started CPAP trials, prophylactic heparin, IV fluids stopped per ID. 05/28: No acute events reported overnight, T-max 100.6, slight improvement to BUN/creatinine. awaiting trach & PEG 05/29: Creatinine continues trending down, remains on minimal vent settings. CPAP as tolerated. 05/30: Patient remains lethargic, opened eyes and tracking this am. Librium will end tonight and decrease seroquel for now. PRN analgesics added for pain management. Patient remains with intermittent fevers, BLE doppler neg for DVT, recent cultures with NGTD, continue current IV abx per ID. LUE swelling noted, LUE doppler pending. Trach and PEG is now on hold, case management is trying to get in contact with a living relative for consent. 05/31: Low dose sedation initiated yesterday due to increase work of breathing and high RR. Patient is stable this am, appears comfortable, tolerating PST. LUE doppler noted with superficial thrombosis in the left cephalic and basilic veins, continue AC- heparin SubQ. 06/01: Off sedation this am for sedation vacation. Still drowsy, however, more alert and following simple commands. Seroquel held overnight and this am, will D/C for now. Tolerating PST this am Assessment and Plan #Neuro: Metabolic encephalopathy #Polysubstance Abuse -UDS positive for amphetamines -On CIWA protocol -Librium end tonight -Seroquel on hold -Monitor QTc -Avoid delirium -PRN analgesia added for pain management -We will need cessation counseling when appropriate #Cardio:Heart failure reduced EF #Cardiomyopathy #Paroxysmal atrial fibrillation #S/p hypertensive emergency, h/o HTN -Continue beta-sylvia, aspirin, statin, hydral, titrate as needed -Cardiology consulted, appreciate recommendations -Echo 05/04/2021-EF 35 to 40%. Moderate concentric LVH. Moderate global hypokinesis of left ventricle. Mild mitral regurgitation. Mild pulmonary hypertension. -Echocardiogram reviewed (08/27/2020): LVEF is 50 to 55%. Mild to moderate concentric LVF. Severe diastolic dysfunction is present (restrictive filling). Right ventricle is mildly hypokinetic. RVSP is 48 mmHg. No valvular abnormalities. -S/p Cardizem drip for atrial fibrillation -Blood pressure monitoring per protocol #Respiratory:Acute Hypoxic respiratory failure -S/p X3 intubation -CCM consulted, appreciate recommendations -Intubated on 05/05 in the ED and extubated 05/13, Re-intubated on 05/16 and Extubated on 05/18 -Reintubated 05/23 -Vent setting:CPAP-25%,8 PS-14 -CCM consulted, appreciate recommendations -VAP bundle addressed -Aspiration precaution HOB above 30 -Daily SBT and SAT trials as tolerated -PRN ABG and CXR per CCM -Continue SPO2 monitoring for SPO2 goal above 92% -Need to be trach and PEG- Currently on hold, trying to get in contact with a living relative for consent #Acute kidney injury likely secondary to vasomotor nephropathy -Nephrology consulted, appreciate recommendations -Renal ultrasound completed: 1.7 hyper echoic mass within the left upper pole, continue to monitor and follow-up with CT once stable -Strict intake and output -Avoid nephrotoxic medications; Renally dose medications -Monitor and replace electrolytes as needed -Trend BMP #Transaminitis, h/o hepatitis C -LFT with some mild improvement -Continue to trend LFTs #ID:Severe COVID-19 pneumonia, Enterobacter aerogenes PNA, s/p Enterococcus faecalis UTI -Infectious disease consulted, appreciate recommendations -COVID-19 PCR positive -s/p droplet/precautions for 21 days -Not a candidate for remdesivir given acute kidney injury -s/p Dexamethasone for 10 days -Anticoagulation per hospital protocol -Trend COVID-19 from 2 markers (ferritin, D-dimer, CRP, LDH) -05/09 urine culture with Enterococcus faecalis -05/16 tracheal aspirate with Enterobacter aerogenes -per ID Due to persistent fevers switched cefepime to IV ertapenem renally adjusted 05/24 -GC negative -f/u culture data -re-cultured 05/26 #Heme: Anemia, Acute DVT (resolved) -Bilateral lower extremity Doppler ultrasound shows acute DVT -heparin gtt converted to DOAC but now d/c -vascular surgery consulted for possible IVC filter placement, appreciate recommendations -repeat doppler shows no DVT -05/30 LUE doppler noted with superficial thrombosis in the left cephalic and basilic veins -subq heparin for prophylaxis -Pulmonary perfusion study showed low probability of pulmonary embolism -S/p 3 unit PRBC -Trend CBC -Transfuse for hemoglobin less than 7 The high probability of a clinically significant, sudden or life threatening deterioration of the [cardio/resp] system(s) required my full and direct attention, intervention and personal management. The aggregate critical care time was [60] minutes. This time is in addition to time spent performing reported procedures but includes the following: [x] Data Review and interpretation [x] Patient assessment and monitoring of vital signs [x] Documentation [x] Medication orders and management Disposition Plan: ICU Total Time Spent with Patient (Minutes): 60 History Interval history: Patient seen and examined at the bedside. Remains on the vent. Off fentanyl this am for sedation vacation, patient is more awake this am following simple commands. Per Seroquel held overnight and this am due to increase lethargy. HUSSEIN overnight Hospitalist Physical - Constitutional Vitals: Temp Pulse Resp BP Pulse Ox 98.4 F 69 35 H 140/92 97 06/01/21 07:17 06/01/21 10:00 06/01/21 10:00 06/01/21 10:00 06/01/21 10:00 General appearance: Present: no acute distress, other (Intubated) - EENT Eyes: Present: PERRL ENT: hearing intact - Respiratory Respiratory effort: normal Respiratory: bilateral: rhonchi - Cardiovascular Rhythm: regular Heart Sounds: Present: S1 & S2 - Extremities Extremities: no ischemia, pulses intact, pulses symmetrical Peripheral Pulses: within normal limits - Abdominal General gastrointestinal: soft, non-distended, normal bowel sounds - Integumentary Integumentary: Present: warm, dry - Psychiatric Psychiatric: appropriate mood/affect, cooperative, other - Neurologic Neurologic: moves all extremities, other (Follow simple commnads) - Allied Health Allied health notes reviewed: nursing HEART Score - HEART Score EKG: Non-specific Age: 45-65 Risk factors: 1-2 risk factors Troponin: Troponin T 0.400 ng/mL (0.00-0.029) H* D 05/16/21 18:40 Troponin: 1-3x normal limit - Critical Actions Critical Actions: 4-6 pts:12-16.6% risk of adverse cardiac event. Should be admitted Results - Labs CBC & Chem 7: 06/01/21 04:56 06/01/21 04:56 Labs: Laboratory Last Values WBC 8.9 K/mm3 (4.5-11.0) 06/01/21 04:56 RBC 3.14 M/mm3 (3.65-5.03) L 06/01/21 04:56 Hgb 9.1 gm/dl (11.8-15.2) L 06/01/21 04:56 Hct 29.0 % (35.5-45.6) L 06/01/21 04:56 MCV 92 fl (84-94) 06/01/21 04:56 MCH 29 pg (28-32) 06/01/21 04:56 MCHC 32 % (32-34) 06/01/21 04:56 RDW 16.3 % (13.2-15.2) H 06/01/21 04:56 Plt Count 440 K/mm3 (140-440) 06/01/21 04:56 Lymph % (Auto) Underground Bol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 05/16/21 10:21 Randolph % (Auto) Underground [employer]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 05/16/21 10:21 Eos % (Auto) Underground [employer]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 05/16/21 10:21 Baso % (Auto) Underground 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 05/16/21 10:21 Lymph # (Auto) Underground 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 05/16/21 10:21 Randolph # (Auto) Underground [employer]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 05/16/21 10:21 Eos # (Auto) Underground 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 05/16/21 10:21 Baso # (Auto) Underground 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 05/16/21 10:21 Add Manual Diff Complete 05/28/21 04:04 Total Counted 100 05/28/21 04:04 Seg Neutrophils % Underground 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 05/16/21 10:21 Seg Neuts % (Manual) 93.0 % (40.0-70.0) H 05/28/21 04:04 Band Neutrophils % 1.0 % 05/28/21 04:04 Lymphocytes % (Manual) 2.0 % (13.4-35.0) L 05/28/21 04:04 Reactive Lymphs % (Man) 0 % 05/28/21 04:04 Monocytes % (Manual) 4.0 % (0.0-7.3) 05/28/21 04:04 Eosinophils % (Manual) 0 % (0.0-4.3) 05/28/21 04:04 Basophils % (Manual) 0 % (0.0-1.8) 05/28/21 04:04 Metamyelocytes % 0 % 05/28/21 04:04 Myelocytes % 0 % 05/28/21 04:04 Promyelocytes % 0 % 05/28/21 04:04 Blast Cells % 0 % 05/28/21 04:04 Nucleated RBC % Not Reportable 05/28/21 04:04 Seg Neutrophils # Underground [employer]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 05/16/21 10:21 Seg Neutrophils # Man 13.1 K/mm3 (1.8-7.7) H 05/28/21 04:04 Band Neutrophils # 0.1 K/mm3 05/28/21 04:04 Lymphocytes # (Manual) 0.3 K/mm3 (1.2-5.4) L 05/28/21 04:04 Abs React Lymphs (Man) 0.0 K/mm3 05/28/21 04:04 Monocytes # (Manual) 0.6 K/mm3 (0.0-0.8) 05/28/21 04:04 Eosinophils # (Manual) 0.0 K/mm3 (0.0-0.4) 05/28/21 04:04 Basophils # (Manual) 0.0 K/mm3 (0.0-0.1) 05/28/21 04:04 Metamyelocytes # 0.0 K/mm3 05/28/21 04:04 Myelocytes # 0.0 K/mm3 05/28/21 04:04 Promyelocytes # 0.0 K/mm3 05/28/21 04:04 Blast Cells # 0.0 K/mm3 05/28/21 04:04 WBC Morphology Not Reportable 05/28/21 04:04 Hypersegmented Neuts Not Reportable 05/28/21 04:04 Hyposegmented Neuts Not Reportable 05/28/21 04:04 Hypogranular Neuts Not Reportable 05/28/21 04:04 Smudge Cells Not Reportable 05/28/21 04:04 Toxic Granulation Not Reportable 05/28/21 04:04 Toxic Vacuolation Not Reportable 05/28/21 04:04 Dohle Bodies Not Reportable 05/28/21 04:04 Pelger-Huet Anomaly Not Reportable 05/28/21 04:04 Jesse Rods Not Reportable 05/28/21 04:04 Platelet Estimate Consistent w auto 05/28/21 04:04 Clumped Platelets Not Reportable 05/28/21 04:04 Plt Clumps, EDTA Not Reportable 05/28/21 04:04 Large Platelets Not Reportable 05/28/21 04:04 Giant Platelets Not Reportable 05/28/21 04:04 Platelet Satelliting Not Reportable 05/28/21 04:04 Plt Morphology Comment Not Reportable 05/28/21 04:04 RBC Morphology Not Reportable 05/28/21 04:04 Dimorphic RBCs Not Reportable 05/28/21 04:04 Polychromasia Not Reportable 05/28/21 04:04 Hypochromasia Not Reportable 05/28/21 04:04 Poikilocytosis Not Reportable 05/28/21 04:04 Anisocytosis 1+ 05/28/21 04:04 Microcytosis Not Reportable 05/28/21 04:04 Macrocytosis Not Reportable 05/28/21 04:04 Spherocytes Not Reportable 05/28/21 04:04 Pappenheimer Bodies Not Reportable 05/28/21 04:04 Sickle Cells Not Reportable 05/28/21 04:04 Target Cells Not Reportable 05/28/21 04:04 Tear Drop Cells Not Reportable 05/28/21 04:04 Ovalocytes Not Reportable 05/28/21 04:04 Helmet Cells Not Reportable 05/28/21 04:04 [employer] Bodies Not Reportable 05/28/21 04:04 [place] Rings Not Reportable 05/28/21 04:04 Alec Cells Not Reportable 05/28/21 04:04 Bite Cells Not Reportable 05/28/21 04:04 Crenated Cell Not Reportable 05/28/21 04:04 Elliptocytes Not Reportable 05/28/21 04:04 Acanthocytes (Spur) Not Reportable 05/28/21 04:04 Rouleaux Not Reportable 05/28/21 04:04 Hemoglobin C Crystals Not Reportable 05/28/21 04:04 Schistocytes Not Reportable 05/28/21 04:04 Malaria parasites Not Reportable 05/28/21 04:04 Tomi Bodies Not Reportable 05/28/21 04:04 Haptoglobin 254 mg/dL (43-212) H 05/23/21 18:54 Hem Pathologist Commnt No 05/28/21 04:04 PT 14.9 Sec. (12.2-14.9) 05/25/21 04:25 INR 1.05 (0.87-1.13) 05/25/21 04:25 APTT 72.5 Sec. (24.2-36.6) H* 05/19/21 19:36 D-Dimer 2730.61 ng/mlDDU (0-234) H 05/12/21 07:19 Heparin Anti-Xa Level 0.47 U.I./ml (0.3-0.7) 05/19/21 05:23 ABG pH 7.443 pH Units (7.350-7.450) 05/27/21 09:20 ABG pCO2 38.8 mm Hg 05/27/21 09:20 ABG pO2 115.2 mm Hg (80.0-90.0) H 05/27/21 09:20 ABG HCO3 25.9 mmol/L (20.0-26.0) 05/27/21 09:20 ABG O2 Saturation 98.3 % (95.0-99.0) 05/27/21 09:20 ABG O2 Content 12.5 (0.0-44) 05/27/21 09:20 ABG Base Excess 1.7 mmol/L (-2.0-3.0) 05/27/21 09:20 ABG Hemoglobin 9.2 gm/dl (14.0-18.0) L 05/27/21 09:20 ABG Carboxyhemoglobin 2.2 % (0.0-5.0) 05/27/21 09:20 ABG Methemoglobin 0.7 % (0.0-1.5) 05/27/21 09:20 Oxyhemoglobin 95.4 % (95.0-99.0) 05/27/21 09:20 FiO2 30 % 05/27/21 09:20 Sodium 144 mmol/L (137-145) 06/01/21 04:56 Potassium 4.3 mmol/L (3.6-5.0) 06/01/21 04:56 Chloride 108.4 mmol/L (98-107) H 06/01/21 04:56 Carbon Dioxide 26 mmol/L (22-30) 06/01/21 04:56 Anion Gap 14 mmol/L 06/01/21 04:56 BUN 49 mg/dL (9-20) H 06/01/21 04:56 Creatinine 1.3 mg/dL (0.8-1.3) 06/01/21 04:56 Estimated GFR 57 ml/min 06/01/21 04:56 BUN/Creatinine Ratio 38 % 06/01/21 04:56 Glucose 113 mg/dL (75-100) H 06/01/21 04:56 POC Glucose 122 mg/dL (70-105) H 06/01/21 11:04 Lactic Acid 0.90 mmol/L (0.7-2.0) 05/20/21 09:17 Calcium 8.0 mg/dL (8.4-10.2) L 06/01/21 04:56 Phosphorus 3.70 mg/dL (2.5-4.5) 06/01/21 04:56 Magnesium 2.10 mg/dL (1.7-2.3) 06/01/21 04:56 Iron 10 ug/dL (49-181) L 05/23/21 Unknown TIBC 151 mcg/dL (250-450) L 05/23/21 Unknown Ferritin 640.2 ng/mL (30.0-300.0) H 05/12/21 07:19 Total Bilirubin 0.50 mg/dL (0.1-1.2) 05/24/21 04:11 AST 152 units/L (5-40) H 05/24/21 04:11 ALT 125 units/L (7-56) H 05/24/21 04:11 Alkaline Phosphatase 72 units/L (35-129) 05/24/21 04:11 Lactate Dehydrogenase 311 units/L (91-180) H 05/23/21 Unknown Total Creatine Kinase 406 units/L (55-170) H 05/04/21 08:42 Troponin T 0.400 ng/mL (0.00-0.029) H* D 05/16/21 18:40 C-Reactive Protein 13.20 mg/dL (0.00-1.30) H 05/28/21 04:04 Total Protein 6.6 g/dL (6.3-8.2) 05/24/21 04:11 Albumin 2.5 g/dL (3.9-5) L 05/24/21 04:11 Albumin/Globulin Ratio 0.6 % 05/24/21 04:11 Triglycerides 144 mg/dL (2-149) 05/10/21 04:57 Cholesterol 140 mg/dL (50-199) 05/04/21 07:25 LDL Cholesterol Direct 89 mg/dL (50-130) 05/04/21 07:25 HDL Cholesterol 48 mg/dL (40-59) 05/04/21 07:25 Cholesterol/HDL Ratio 2.91 % 05/04/21 07:25 Procalcitonin 0.63 ng/mL (<0.15) 05/09/21 15:53 Urine Color Yellow (Yellow) 05/26/21 09:50 Urine Turbidity Turbid (Clear) 05/26/21 09:50 Urine pH 5.0 (5.0-7.0) 05/26/21 09:50 Ur Specific [place] 1.014 (1.003-1.030) 05/26/21 09:50 Urine Protein 30 mg/dl mg/dL (Negative) 05/26/21 09:50 Urine Glucose (UA) Neg mg/dL (Negative) 05/26/21 09:50 Urine Ketones Neg mg/dL (Negative) 05/26/21 09:50 Urine Blood Sm (Negative) 05/26/21 09:50 Urine Nitrite Neg (Negative) 05/26/21 09:50 Urine Bilirubin Neg (Negative) 05/26/21 09:50 Urine Urobilinogen < 2.0 mg/dL (<2.0) 05/26/21 09:50 Ur Leukocyte Esterase Tr (Negative) 05/26/21 09:50 Urine WBC (Auto) 38.0 /HPF (0.0-6.0) H 05/26/21 09:50 Urine RBC (Auto) 5.0 /HPF (0.0-6.0) 05/26/21 09:50 U Epithel Cells (Auto) 1.0 /HPF (0-13.0) 05/23/21 16:30 Urine Bacteria (Auto) 1+ /HPF (Negative) 05/23/21 16:30 Uric Acid Crystals Few 05/09/21 00:40 Triple Phos Crystals 2+ 05/09/21 13:22 Amorphous Crystals 3+ 05/26/21 09:50 Granular Casts 20 /LPF 05/26/21 09:50 Urine Mucus Few /HPF 05/23/21 16:30 Urine Creatinine 100.1 mg/dL (0.1-20.0) H 05/23/21 16:30 Protein/Creatinin Ratio 0.42 05/10/21 11:03 Urine Sodium 25 mmol/L 05/23/21 16:30 Fraction Sodium Excret 0.3 05/23/21 16:30 Urine Total Protein 42 mg/dL (5-11.8) H 05/10/21 11:03 Vancomycin Trough 15.4 ug/mL (5.0-20.0) 05/29/21 14:15 Urine Opiates Screen Negative 05/04/21 Unknown Urine Methadone Screen Negative 05/04/21 Unknown Ur Barbiturates Screen Negative 05/04/21 Unknown Ur Phencyclidine Scrn Negative 05/04/21 Unknown Ur Amphetamines Screen Positive 05/04/21 Unknown U Benzodiazepines Scrn Negative 05/04/21 Unknown Urine Cocaine Screen Negative 05/04/21 Unknown U Marijuana (THC) Screen Negative 05/04/21 Unknown Drugs of Abuse Note Disclamer 05/04/21 Unknown Immunofix Electrophor see below 05/05/21 03:40 AUDRA Screen Negative (Negative) 05/05/21 03:40 Proteinase 3 (PR3) Ab <1.0 AI (<1.0) 05/05/21 03:40 Myeloperoxidase Ab <1.0 AI (<1.0) 05/05/21 03:40 Complement C3 72 mg/dL (82-185) L 05/05/21 03:40 Complement C4 17 mg/dL (15-53) 05/05/21 03:40 Coronavirus (PCR) Positive (Negative) A 05/05/21 08:30 Hepatitis A IgM Ab Non-reactive (NonReactive) 05/05/21 03:40 Hep Bs Antigen Non-reactive (Negative) 05/05/21 03:40 Hep B Core IgM Ab Non-reactive (NonReactive) 05/05/21 03:40 Hepatitis C Antibody Reactive (NonReactive) A 05/05/21 03:40 Blood Type O POSITIVE 05/23/21 07:12 Antibody Screen Negative 05/23/21 07:12 Crossmatch See Detail 05/23/21 07:12 Microbiology: Microbiology 05/26/21 12:59 Peripheral/Venous Blood Culture - Final NO GROWTH AFTER 5 DAYS 05/26/21 12:59 Peripheral/Venous Blood Culture - Final NO GROWTH AFTER 5 DAYS Merino/IV: Voiding Method Indwelling Catheter Active Medications - Current Medications Current Medications: Generic Name Dose Route Start Last Admin Trade Name Freq PRN Reason Stop Dose Admin Acetaminophen 650 mg 05/04/21 12:34 05/31/21 20:16 Acetaminophen 325 Mg Tab PO 650 mg Q4H PRN Administration Pain MILD(1-3)/Fever >100.5/MARIA Acetaminophen 650 mg 05/07/21 16:00 05/11/21 16:25 Acetaminophen [address] 650 mg Q4H PRN Administration Pain, Mild (1-3) Atorvastatin Calcium 40 mg 05/09/21 22:00 05/31/21 21:15 Atorvastatin 40 Mg Tab FEEDTUBE 40 mg QHS RISHI Administration Dextrose 0 ml 05/09/21 10:49 05/14/21 06:55 Dextrose 10% *Hypoglycemia IV 250 ml PRN PRN Administration Hypoglycemia Fentanyl 50 mcg 05/23/21 15:00 Fentanyl 100 Mcg/2 Ml Inj IV Q10MIN PRN ANALGESIA Haloperidol Lactate 5 mg 05/09/21 18:32 05/18/21 19:52 Haloperidol Lactate 5 Mg/1 Ml Inj IV 5 mg Q6H PRN Administration Agitation Heparin Sodium (Porcine) 5,000 unit 05/27/21 22:00 06/01/21 09:55 Heparin 5,000 Unit/1 Ml Vial SUB-Q 5,000 unit Q12HR RISHI Administration Hydralazine HCl 50 mg 05/04/21 14:00 06/01/21 06:17 Hydralazine 25 Mg Tab PO 50 mg Q8HR RISHI Administration Hydrophilic Ointment 1 applic 05/05/21 15:21 Lip Therapy Vaseline TP Q2HR PRN Dry Lips Fentanyl Citrate 2,000 mcg in 100 mls @ 4.082 mls/hr 05/23/21 15:00 06/01/21 08:42 Fentanyl Drip Premix IV 0 mcg/kg/hr TITR RISHI 0 mls/hr Titration Protocol 1 MCG/KG/HR Insulin Human Lispro 0 unit 05/10/21 09:40 05/12/21 16:49 Insulin Lispro 100 Unit/Ml SUB-Q 2 unit Q6HR PRN Administration Hyperglycemia Protocol Labetalol HCl 10 mg 05/15/21 10:24 05/25/21 08:15 Labetalol 20 Mg/4 Ml Inj IV 10 mg Q4H PRN Administration sbp> 160. Lansoprazole 30 mg 05/26/21 10:00 06/01/21 09:55 Lansoprazole 30 Mg Solutab FEEDTUBE 30 mg BID RISHI Administration Metoprolol Tartrate 50 mg 05/26/21 08:00 06/01/21 08:16 Metoprolol Tartrate 25 Mg Tab FEEDTUBE 50 mg TID RISHI Administration Multi-Ingred Cream/Lotion/Oil/Oint 1 applic 05/05/21 15:21 Mineral Oil/Petrolatum, White Ophth Oint 3.5 Gm OU Q4HR PRN Dry Eye(s) Ondansetron HCl 4 mg 05/04/21 12:34 05/04/21 21:51 Ondansetron 4 Mg/2 Ml Inj IV 4 mg Q8H PRN Administration Nausea And Vomiting Oxycodone HCl 5 mg 05/30/21 11:00 05/30/21 14:55 Oxycodone 5 Mg Tab PO 5 mg Q6H PRN Administration Pain, Moderate (4-6) Polyethylene Glycol 17 gm 05/26/21 22:00 05/31/21 21:15 Polyethylene Glycol 3350 17 Gm Powder PO 17 gm QHS RISHI Administration Senna/Docusate Sodium 1 tab 05/05/21 22:00 05/31/21 21:15 Sennosides/Docusate Sodium 8.6/50 Mg Tab FEEDTUBE 1 tab BID RISHI Administration Sodium Chloride 10 ml 05/04/21 22:00 06/01/21 09:56 Sodium Chloride 0.9% 10 Ml Flush Syringe IV 10 ml BID RISHI Administration Sodium Chloride 10 ml 05/04/21 12:34 05/06/21 13:59 Sodium Chloride 0.9% 10 Ml Flush Syringe IV 10 ml PRN PRN Administration LINE FLUSH Sodium Chloride 10 ml 05/09/21 09:46 Sodium Chloride 0.9% 50 Ml Ivpb IV PRN PRN FLUSH Nutrition/Malnutrition Assess - Dietary Evaluation Nutrition/Malnutrition Findings: Nutrition Notes Start: 05/05/21 16:15 Freq: Status: Active Protocol: Document 05/27/21 15:02 ROSAURA (Rec: 05/27/21 15:07 ROSAURA [id number]) Nutrition Notes Initial or Follow up Reassessment Current Diagnosis Acute Kidney Injury, Hypertension,Heart Failure, Respiratory Failure Other Pertinent Diagnosis Severe COVID-19 pneu, metabolic encephalopathy, polysubstance dependence Current Diet TF - Nepro at 45ml/hr Labs/Tests BUN 56 Cr 1.8 Pertinent Medications Miralax Height 5 ft 7 in Weight 81.647 kg [place] Body Weight (kg) 67.27 BMI 28.1 Weight Status Overweight Subjective/Other Information Pt re-intubated on 05/23; rectal tube in place as well. Trach /PEG placement pending; awaiting family consent. Per RN, pt tolerating TF at goal rate. Percent of energy/protein needs met: 100% energy 89% pro Burn Absent Trauma Absent #1 Nutrition Diagnosis Inadequate oral intake Diagnosis Progress(for reassessment Continues documentation) Is patient on ventilator? Yes Is Patient Ambulatory and/or Out of Bed No REE-([place] [facility]-confined to bed) [phone] Calculation Used for Recommendations [place] Additional Notes Pro needs 1.2-2g/k-163g/ day Fluid needs 1ml/kcal Nutrition Intervention Nutrition Support: Continue Nepro at 45ml/hr with 200ml water flush q4h. Kcal 1,944 Protein (gm) 87 Carbohydrates (gm) 174 Fat (gm) 104 Fluid (mL) 785 Fiber (gm) 14 Goal #1 TF tolerance Goal #2 TF to meet at least 75% energy and pro needs Follow-Up By: 06/03/21 Additional Comments F/U: vent status, stable TF, trach/PEG placement <VIKRAM SAENZ - Last Filed: 06/02/21 08:07> Assessment and Plan Assessment and plan: I saw and evaluated the patient. I agree with the findings and the plan of care as documented in the Nurse Practitioner's~note, with the following corrections and additions. Hospitalist Physical - Constitutional Vitals: Temp Pulse Resp BP Pulse Ox 99.0 F 73 19 122/74 99 06/02/21 07:45 06/02/21 07:15 06/02/21 06:00 06/02/21 07:15 06/02/21 07:15 HEART Score - HEART Score Troponin: Troponin T 0.400 ng/mL (0.00-0.029) H* D 05/16/21 18:40 Results - Labs CBC & Chem 7: 06/01/21 04:56 06/02/21 04:06 Labs: Laboratory Last Values WBC 8.9 K/mm3 (4.5-11.0) 06/01/21 04:56 RBC 3.14 M/mm3 (3.65-5.03) L 06/01/21 04:56 Hgb 9.1 gm/dl (11.8-15.2) L 06/01/21 04:56 Hct 29.0 % (35.5-45.6) L 06/01/21 04:56 MCV 92 fl (84-94) 06/01/21 04:56 MCH 29 pg (28-32) 06/01/21 04:56 MCHC 32 % (32-34) 06/01/21 04:56 RDW 16.3 % (13.2-15.2) H 06/01/21 04:56 Plt Count 440 K/mm3 (140-440) 06/01/21 04:56 Lymph % (Auto) Underground [employer]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 05/16/21 10:21 [place] % (Auto) Underground 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 05/16/21 10:21 Eos % (Auto) 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 05/16/21 10:21 Baso % (Auto) 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 05/16/21 10:21 Lymph # (Auto) 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 05/16/21 10:21 [place] # (Auto) Underground 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 05/16/21 10:21 Eos # (Auto) 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 05/16/21 10:21 Baso # (Auto) 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 05/16/21 10:21 Add Manual Diff Complete 05/28/21 04:04 Total Counted 100 05/28/21 04:04 Seg Neutrophils % 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 05/16/21 10:21 Seg Neuts % (Manual) 93.0 % (40.0-70.0) H 05/28/21 04:04 Band Neutrophils % 1.0 % 05/28/21 04:04 Lymphocytes % (Manual) 2.0 % (13.4-35.0) L 05/28/21 04:04 Reactive Lymphs % (Man) 0 % 05/28/21 04:04 Monocytes % (Manual) 4.0 % (0.0-7.3) 05/28/21 04:04 Eosinophils % (Manual) 0 % (0.0-4.3) 05/28/21 04:04 Basophils % (Manual) 0 % (0.0-1.8) 05/28/21 04:04 Metamyelocytes % 0 % 05/28/21 04:04 Myelocytes % 0 % 05/28/21 04:04 Promyelocytes % 0 % 05/28/21 04:04 Blast Cells % 0 % 05/28/21 04:04 Nucleated RBC % Not Reportable 05/28/21 04:04 Seg Neutrophils # 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 05/16/21 10:21 Seg Neutrophils # Man 13.1 K/mm3 (1.8-7.7) H 05/28/21 04:04 Band Neutrophils # 0.1 K/mm3 05/28/21 04:04 Lymphocytes # (Manual) 0.3 K/mm3 (1.2-5.4) L 05/28/21 04:04 Abs React Lymphs (Man) 0.0 K/mm3 05/28/21 04:04 Monocytes # (Manual) 0.6 K/mm3 (0.0-0.8) 05/28/21 04:04 Eosinophils # (Manual) 0.0 K/mm3 (0.0-0.4) 05/28/21 04:04 Basophils # (Manual) 0.0 K/mm3 (0.0-0.1) 05/28/21 04:04 Metamyelocytes # 0.0 K/mm3 05/28/21 04:04 Myelocytes # 0.0 K/mm3 05/28/21 04:04 Promyelocytes # 0.0 K/mm3 05/28/21 04:04 Blast Cells # 0.0 K/mm3 05/28/21 04:04 WBC Morphology Not Reportable 05/28/21 04:04 Hypersegmented Neuts Not Reportable 05/28/21 04:04 Hyposegmented Neuts Not Reportable 05/28/21 04:04 Hypogranular Neuts Not Reportable 05/28/21 04:04 Smudge Cells Not Reportable 05/28/21 04:04 Toxic Granulation Not Reportable 05/28/21 04:04 Toxic Vacuolation Not Reportable 05/28/21 04:04 Dohle Bodies Not Reportable 05/28/21 04:04 Pel[place]-Huet Anomaly Not Reportable 05/28/21 04:04 Jesse Rods Not Reportable 05/28/21 04:04 Platelet Estimate Consistent w auto 05/28/21 04:04 Clumped Platelets Not Reportable 05/28/21 04:04 Plt Clumps, EDTA Not Reportable 05/28/21 04:04 Large Platelets Not Reportable 05/28/21 04:04 Giant Platelets Not Reportable 05/28/21 04:04 Platelet Satelliting Not Reportable 05/28/21 04:04 Plt Morphology Comment Not Reportable 05/28/21 04:04 RBC Morphology Not Reportable 05/28/21 04:04 Dimorphic RBCs Not Reportable 05/28/21 04:04 Polychromasia Not Reportable 05/28/21 04:04 Hypochromasia Not Reportable 05/28/21 04:04 Poikilocytosis Not Reportable 05/28/21 04:04 Anisocytosis 1+ 05/28/21 04:04 Microcytosis Not Reportable 05/28/21 04:04 Macrocytosis Not Reportable 05/28/21 04:04 Spherocytes Not Reportable 05/28/21 04:04 Pappenheimer Bodies Not Reportable 05/28/21 04:04 Sickle Cells Not Reportable 05/28/21 04:04 Target Cells Not Reportable 05/28/21 04:04 Tear Drop Cells Not Reportable 05/28/21 04:04 Ovalocytes Not Reportable 05/28/21 04:04 Helmet Cells Not Reportable 05/28/21 04:04 [employer] Bodies Not Reportable 05/28/21 04:04 [place] Rings Not Reportable 05/28/21 04:04 [place] Cells Not Reportable 05/28/21 04:04 Bite Cells Not Reportable 05/28/21 04:04 Crenated Cell Not Reportable 05/28/21 04:04 Elliptocytes Not Reportable 05/28/21 04:04 Acanthocytes (Spur) Not Reportable 05/28/21 04:04 Rouleaux Not Reportable 05/28/21 04:04 Hemoglobin C Crystals Not Reportable 05/28/21 04:04 Schistocytes Not Reportable 05/28/21 04:04 Malaria parasites Not Reportable 05/28/21 04:04 Tomi Bodies Not Reportable 05/28/21 04:04 Haptoglobin 254 mg/dL (43-212) H 05/23/21 18:54 Hem Pathologist Commnt No 05/28/21 04:04 PT 14.9 Sec. (12.2-14.9) 05/25/21 04:25 INR 1.05 (0.87-1.13) 05/25/21 04:25 APTT 72.5 Sec. (24.2-36.6) H* 05/19/21 19:36 D-Dimer 2730.61 ng/mlDDU (0-234) H 05/12/21 07:19 Heparin Anti-Xa Level 0.47 U.I./ml (0.3-0.7) 05/19/21 05:23 ABG pH 7.443 pH Units (7.350-7.450) 05/27/21 09:20 ABG pCO2 38.8 mm Hg 05/27/21 09:20 ABG pO2 115.2 mm Hg (80.0-90.0) H 05/27/21 09:20 ABG HCO3 25.9 mmol/L (20.0-26.0) 05/27/21 09:20 ABG O2 Saturation 98.3 % (95.0-99.0) 05/27/21 09:20 ABG O2 Content 12.5 (0.0-44) 05/27/21 09:20 ABG Base Excess 1.7 mmol/L (-2.0-3.0) 05/27/21 09:20 ABG Hemoglobin 9.2 gm/dl (14.0-18.0) L 05/27/21 09:20 ABG Carboxyhemoglobin 2.2 % (0.0-5.0) 05/27/21 09:20 ABG Methemoglobin 0.7 % (0.0-1.5) 05/27/21 09:20 Oxyhemoglobin 95.4 % (95.0-99.0) 05/27/21 09:20 FiO2 30 % 05/27/21 09:20 Sodium 142 mmol/L (137-145) 06/02/21 04:06 Potassium 4.1 mmol/L (3.6-5.0) 06/02/21 04:06 Chloride 105.4 mmol/L (98-107) 06/02/21 04:06 Carbon Dioxide 30 mmol/L (22-30) 06/02/21 04:06 Anion Gap 11 mmol/L 06/02/21 04:06 BUN 46 mg/dL (9-20) H 06/02/21 04:06 Creatinine 1.2 mg/dL (0.8-1.3) 06/02/21 04:06 Estimated GFR > 60 ml/min 06/02/21 04:06 BUN/Creatinine Ratio 38 % 06/02/21 04:06 Glucose 121 mg/dL (75-100) H 06/02/21 04:06 POC Glucose 120 mg/dL (70-105) H 06/02/21 05:08 Lactic Acid 0.90 mmol/L (0.7-2.0) 05/20/21 09:17 Calcium 8.6 mg/dL (8.4-10.2) 06/02/21 04:06 Phosphorus 3.70 mg/dL (2.5-4.5) 06/01/21 04:56 Magnesium 2.10 mg/dL (1.7-2.3) 06/01/21 04:56 Iron 10 ug/dL (49-181) L 05/23/21 Unknown TIBC 151 mcg/dL (250-450) L 05/23/21 Unknown Ferritin 640.2 ng/mL (30.0-300.0) H 05/12/21 07:19 Total Bilirubin 0.50 mg/dL (0.1-1.2) 05/24/21 04:11 AST 152 units/L (5-40) H 05/24/21 04:11 ALT 125 units/L (7-56) H 05/24/21 04:11 Alkaline Phosphatase 72 units/L (35-129) 05/24/21 04:11 Lactate Dehydrogenase 311 units/L (91-180) H 05/23/21 Unknown Total Creatine Kinase 406 units/L (55-170) H 05/04/21 08:42 Troponin T 0.400 ng/mL (0.00-0.029) H* D 05/16/21 18:40 C-Reactive Protein 13.20 mg/dL (0.00-1.30) H 05/28/21 04:04 Total Protein 6.6 g/dL (6.3-8.2) 05/24/21 04:11 Albumin 2.5 g/dL (3.9-5) L 05/24/21 04:11 Albumin/Globulin Ratio 0.6 % 05/24/21 04:11 Triglycerides 144 mg/dL (2-149) 05/10/21 04:57 Cholesterol 140 mg/dL (50-199) 05/04/21 07:25 LDL Cholesterol Direct 89 mg/dL (50-130) 05/04/21 07:25 HDL Cholesterol 48 mg/dL (40-59) 05/04/21 07:25 Cholesterol/HDL Ratio 2.91 % 05/04/21 07:25 Procalcitonin 0.63 ng/mL (<0.15) 05/09/21 15:53 Urine Color Yellow (Yellow) 05/26/21 09:50 Urine Turbidity Turbid (Clear) 05/26/21 09:50 Urine pH 5.0 (5.0-7.0) 05/26/21 09:50 Ur Specific [place] 1.014 (1.003-1.030) 05/26/21 09:50 Urine Protein 30 mg/dl mg/dL (Negative) 05/26/21 09:50 Urine Glucose (UA) Neg mg/dL (Negative) 05/26/21 09:50 Urine Ketones Neg mg/dL (Negative) 05/26/21 09:50 Urine Blood Sm (Negative) 05/26/21 09:50 Urine Nitrite Neg (Negative) 05/26/21 09:50 Urine Bilirubin Neg (Negative) 05/26/21 09:50 Urine Urobilinogen < 2.0 mg/dL (<2.0) 05/26/21 09:50 Ur Leukocyte Esterase Tr (Negative) 05/26/21 09:50 Urine WBC (Auto) 38.0 /HPF (0.0-6.0) H 05/26/21 09:50 Urine RBC (Auto) 5.0 /HPF (0.0-6.0) 05/26/21 09:50 U Epithel Cells (Auto) 1.0 /HPF (0-13.0) 05/23/21 16:30 Urine Bacteria (Auto) 1+ /HPF (Negative) 05/23/21 16:30 Uric Acid Crystals Few 05/09/21 00:40 Triple Phos Crystals 2+ 05/09/21 13:22 Amorphous Crystals 3+ 05/26/21 09:50 Granular Casts 20 /LPF 05/26/21 09:50 Urine Mucus Few /HPF 05/23/21 16:30 Urine Creatinine 100.1 mg/dL (0.1-20.0) H 05/23/21 16:30 Protein/Creatinin Ratio 0.42 05/10/21 11:03 Urine Sodium 25 mmol/L 05/23/21 16:30 Fraction Sodium Excret 0.3 05/23/21 16:30 Urine Total Protein 42 mg/dL (5-11.8) H 05/10/21 11:03 Vancomycin Trough 15.4 ug/mL (5.0-20.0) 05/29/21 14:15 Urine Opiates Screen Negative 05/04/21 Unknown Urine Methadone Screen Negative 05/04/21 Unknown Ur Barbiturates Screen Negative 05/04/21 Unknown Ur Phencyclidine Scrn Negative 05/04/21 Unknown Ur Amphetamines Screen Positive 05/04/21 Unknown U Benzodiazepines Scrn Negative 05/04/21 Unknown Urine Cocaine Screen Negative 05/04/21 Unknown U Marijuana (THC) Screen Negative 05/04/21 Unknown Drugs of Abuse Note Disclamer 05/04/21 Unknown Immunofix Electrophor see below 05/05/21 03:40 AUDRA Screen Negative (Negative) 05/05/21 03:40 Proteinase 3 (PR3) Ab <1.0 AI (<1.0) 05/05/21 03:40 Myeloperoxidase Ab <1.0 AI (<1.0) 05/05/21 03:40 Complement C3 72 mg/dL (82-185) L 05/05/21 03:40 Complement C4 17 mg/dL (15-53) 05/05/21 03:40 Coronavirus (PCR) Positive (Negative) A 05/05/21 08:30 Hepatitis A IgM Ab Non-reactive (NonReactive) 05/05/21 03:40 Hep Bs Antigen Non-reactive (Negative) 05/05/21 03:40 Hep B Core IgM Ab Non-reactive (NonReactive) 05/05/21 03:40 Hepatitis C Antibody Reactive (NonReactive) A 05/05/21 03:40 Blood Type O POSITIVE 05/23/21 07:12 Antibody Screen Negative 05/23/21 07:12 Crossmatch See Detail 05/23/21 07:12 [place]/IV: Voiding Method Indwelling Catheter Active Medications - Current Medications Current Medications: Generic Name Dose Route Start Last Admin Trade Name Freq PRN Reason Stop Dose Admin Acetaminophen 650 mg 05/04/21 12:34 06/02/21 05:21 Acetaminophen 325 Mg Tab PO 650 mg Q4H PRN Administration Pain MILD(1-3)/Fever >100.5/MARIA Acetaminophen 650 mg 05/07/21 16:00 05/11/21 16:25 Acetaminophen [address] 650 mg Q4H PRN Administration Pain, Mild (1-3) Atorvastatin Calcium 40 mg 05/09/21 22:00 06/01/21 21:11 Atorvastatin 40 Mg Tab FEEDTUBE 40 mg QHS RISHI Administration Dextrose 0 ml 05/09/21 10:49 05/14/21 06:55 Dextrose 10% *Hypoglycemia IV 250 ml PRN PRN Administration Hypoglycemia Fentanyl 50 mcg 05/23/21 15:00 Fentanyl 100 Mcg/2 Ml Inj IV Q10MIN PRN ANALGESIA Haloperidol Lactate 5 mg 05/09/21 18:32 05/18/21 19:52 Haloperidol Lactate 5 Mg/1 Ml Inj IV 5 mg Q6H PRN Administration Agitation Heparin Sodium (Porcine) 5,000 unit 05/27/21 22:00 06/01/21 21:11 Heparin 5,000 Unit/1 Ml Vial SUB-Q 5,000 unit Q12HR RISHI Administration Hydralazine HCl 50 mg 05/04/21 14:00 06/02/21 05:21 Hydralazine 25 Mg Tab PO 50 mg Q8HR RISHI Administration Hydrophilic Ointment 1 applic 05/05/21 15:21 Lip Therapy Vaseline TP Q2HR PRN Dry Lips Fentanyl Citrate 2,000 mcg in 100 mls @ 4.082 mls/hr 05/23/21 15:00 06/01/21 11:31 Fentanyl Drip Premix IV 0.5 mcg/kg/hr TITR RISHI 2.041 mls/hr Administration Protocol 1 MCG/KG/HR Insulin Human Lispro 0 unit 05/10/21 09:40 05/12/21 16:49 Insulin Lispro 100 Unit/Ml SUB-Q 2 unit Q6HR PRN Administration Hyperglycemia Protocol Labetalol HCl 10 mg 05/15/21 10:24 05/25/21 08:15 Labetalol 20 Mg/4 Ml Inj IV 10 mg Q4H PRN Administration sbp> 160. Lansoprazole 30 mg 05/26/21 10:00 06/01/21 21:11 Lansoprazole 30 Mg Solutab FEEDTUBE 30 mg BID RISHI Administration Metoprolol Tartrate 50 mg 05/26/21 08:00 06/01/21 21:11 Metoprolol Tartrate 25 Mg Tab FEEDTUBE 50 mg TID RISHI Administration Multi-Ingred Cream/Lotion/Oil/Oint 1 applic 05/05/21 15:21 Mineral Oil/Petrolatum, White Ophth Oint 3.5 Gm OU Q4HR PRN Dry Eye(s) Ondansetron HCl 4 mg 05/04/21 12:34 05/04/21 21:51 Ondansetron 4 Mg/2 Ml Inj IV 4 mg Q8H PRN Administration Nausea And Vomiting Oxycodone HCl 5 mg 05/30/21 11:00 05/30/21 14:55 Oxycodone 5 Mg Tab PO 5 mg Q6H PRN Administration Pain, Moderate (4-6) Polyethylene Glycol 17 gm 05/26/21 22:00 06/01/21 21:11 Polyethylene Glycol 3350 17 Gm Powder PO Not Given QHS RISHI Senna/Docusate Sodium 1 tab 05/05/21 22:00 06/01/21 21:11 Sennosides/Docusate Sodium 8.6/50 Mg Tab FEEDTUBE 1 tab BID RISHI Administration Sodium Chloride 10 ml 05/04/21 22:00 06/01/21 21:11 Sodium Chloride 0.9% 10 Ml Flush Syringe IV 10 ml BID RISHI Administration Sodium Chloride 10 ml 05/04/21 12:34 05/06/21 13:59 Sodium Chloride 0.9% 10 Ml Flush Syringe IV 10 ml PRN PRN Administration LINE FLUSH Sodium Chloride 10 ml 05/09/21 09:46 Sodium Chloride 0.9% 50 Ml Ivpb IV PRN PRN FLUSH Nutrition/Malnutrition Assess - Dietary Evaluation Nutrition/Malnutrition Findings: Nutrition Notes Start: 05/05/21 16:15 Freq: Status: Active Protocol: Document 05/27/21 15:02 ROSAURA (Rec: 05/27/21 15:07 ROSAURA [id number]) Nutrition Notes Initial or Follow up Reassessment Current Diagnosis Acute Kidney Injury, Hypertension,Heart Failure, Respiratory Failure Other Pertinent Diagnosis Severe COVID-19 pneu, metabolic encephalopathy, polysubstance dependence Current Diet TF - Nepro at 45ml/hr Labs/Tests BUN 56 Cr 1.8 Pertinent Medications Miralax Height 5 ft 7 in Weight 81.647 kg [place] Body Weight (kg) 67.27 BMI 28.1 Weight Status Overweight Subjective/Other Information Pt re-intubated on 05/23; rectal tube in place as well. Trach /PEG placement pending; awaiting family consent. Per RN, pt tolerating TF at goal rate. Percent of energy/protein needs met: 100% energy 89% pro Burn Absent Trauma Absent #1 Nutrition Diagnosis Inadequate oral intake Diagnosis Progress(for reassessment Continues documentation) Is patient on ventilator? Yes Is Patient Ambulatory and/or Out of Bed No REE-([facility]-confined to bed) 9837.60 Calculation Used for Recommendations [facility] Additional Notes Pro needs 1.2-2g/k-163g/ day Fluid needs 1ml/kcal Nutrition Intervention Nutrition Support: Continue Nepro at 45ml/hr with 200ml water flush q4h. Kcal 1,944 Protein (gm) 87 Carbohydrates (gm) 174 Fat (gm) 104 Fluid (mL) 785 Fiber (gm) 14 Goal #1 TF tolerance Goal #2 TF to meet at least 75% energy and pro needs Follow-Up By: 06/03/21 Additional Comments F/U: vent status, stable TF, trach/PEG placement
[2021-06-01] MEDS: fentaNYL DRIP Premix 2,000 MCG/100 ML BAG IV SCH (11:31)
--- NOTE | 2021-06-01 12:30 | Progress Note ---
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 --SCr 1.0mg/dL in August 2020 * Acute hypoxic respiratory failure * Atrial fibrillation * Cardiomyopathy * NSTEMI * COVID 19 infection * Hepatitis C * Hypertension * Anemia * Metabolic acidosis * Methamphetamine abuse * Transaminitis Plan: * Renal function is stable - SCr 1.3mg/dL today * Lytes are stable - hyperK and hyperNa resolved * Renal ultrasound reviewed - will need follow up CT once stable * Vent management per pulm medicine * Continue antiHTN medications * Cardiology recommendations noted * Dose medications for renal function * Avoid potential nephrotoxins * Strict I/O * Will follow peripherally Subjective Date of service: 06/01/21 Principal diagnosis: AHRF; COVID-19 infection; NSTEMI; YE; HFrEF (35-40%); [place] ysubstance abuse Interval history: Remains intubated - PS trial 15, PEEP 8, FiO2 25% Objective - Vital Signs Vital signs: Vital Signs - 12hr 06/01/21 06/01/21 06/01/21 00:54 01:00 02:00 Temperature Pulse Rate 66 66 66 Pulse Rate [ From Monitor] Respiratory 21 22 Rate Blood Pressure 119/75 122/80 118/81 O2 Sat by Pulse 98 99 99 Oximetry 06/01/21 06/01/21 06/01/21 03:00 03:20 04:00 Temperature 98.1 F Pulse Rate 67 68 67 Pulse Rate [ 63 From Monitor] Respiratory 17 20 Rate Blood Pressure 121/81 117/79 O2 Sat by Pulse 99 100 Oximetry 06/01/21 06/01/21 06/01/21 04:31 05:00 06:00 Temperature Pulse Rate 68 67 68 Pulse Rate [ From Monitor] Respiratory 19 18 Rate Blood Pressure 125/84 120/83 123/83 O2 Sat by Pulse 99 100 100 Oximetry 06/01/21 06/01/21 06/01/21 07:00 07:17 08:00 Temperature 98.4 F Pulse Rate 75 75 Pulse Rate [ 68 From Monitor] Respiratory 25 H 23 Rate Blood Pressure 133/88 122/84 O2 Sat by Pulse 99 97 Oximetry 06/01/21 06/01/21 06/01/21 08:16 09:00 10:00 Temperature Pulse Rate 76 66 69 Pulse Rate [ From Monitor] Respiratory 29 H 35 H Rate Blood Pressure 120/80 116/79 140/92 O2 Sat by Pulse 97 97 Oximetry 06/01/21 06/01/21 06/01/21 11:00 11:46 12:00 Temperature 99.3 F Pulse Rate 70 70 Pulse Rate [ 69 From Monitor] Respiratory 41 H 28 H Rate Blood Pressure 137/92 O2 Sat by Pulse 96 99 Oximetry 06/01/21 12:01 Temperature Pulse Rate 69 Pulse Rate [ From Monitor] Respiratory 23 Rate Blood Pressure 110/75 O2 Sat by Pulse 97 Oximetry - General Appearance General appearance: well-developed, well-nourished, intubated EENT: ATNC, other (ETT in place) Cardiology: regular, S1S2 Gastrointestinal: normal, hypoactive bowel sounds, no tenderness, no distended Integumentary: no rash, warm and dry - Lab 06/01/21 04:56 06/02/21 04:06 Most recent lab results ABG pH 7.443 pH Units (7.350-7.450) 05/27/21 09:20 ABG pCO2 38.8 mm Hg 05/27/21 09:20 ABG pO2 115.2 mm Hg (80.0-90.0) H 05/27/21 09:20 ABG HCO3 25.9 mmol/L (20.0-26.0) 05/27/21 09:20 ABG O2 Saturation 98.3 % (95.0-99.0) 05/27/21 09:20 Calcium 8.0 mg/dL (8.4-10.2) L 06/01/21 04:56 Phosphorus 3.70 mg/dL (2.5-4.5) 06/01/21 04:56 Magnesium 2.10 mg/dL (1.7-2.3) 06/01/21 04:56 Urine Creatinine 100.1 mg/dL (0.1-20.0) H 05/23/21 16:30 Urine Sodium 25 mmol/L 05/23/21 16:30 Urine Total Protein 42 mg/dL (5-11.8) H 05/10/21 11:03 Medications & Allergies - Medications Allergies/Adverse Reactions: Allergies No Known Allergies Allergy (Verified 05/08/21 07:47) Home Medications: Home Medications Medication Instructions Recorded Confirmed Last Taken Type Cefpodoxime Proxetil 200 mg PO Q12H #10 tablet 09/11/20 05/19/21 Unknown Rx Famotidine [Pepcid] 20 mg PO BID #30 tablet 04/13/21 05/19/21 Unknown Rx Losartan [Cozaar] 100 mg PO QDAY #60 tablet 04/13/21 05/19/21 Unknown Rx Metoprolol Xl [Metoprolol 25 mg PO QDAY #30 tablet 04/13/21 05/19/21 Unknown Rx SUCCINATE ER TAB] NIFEdipine XL [Procardia Xl] 60 mg PO Q12HR #60 tablet 04/13/21 05/19/21 Unknown Rx hydrALAZINE [Apresoline TAB] 50 mg PO Q8HR #180 tablet 04/13/21 05/19/21 Unknown Rx Active Medications: Generic Name Dose Route Start Last Admin Trade Name Freq PRN Reason Stop Dose Admin Acetaminophen 650 mg 05/04/21 12:34 05/31/21 20:16 Acetaminophen 325 Mg Tab PO 650 mg Q4H PRN Administration Pain MILD(1-3)/Fever >100.5/MARIA Acetaminophen 650 mg 05/07/21 16:00 05/11/21 16:25 Acetaminophen 650 Mg Rect Supp MO 650 mg Q4H PRN Administration Pain, Mild (1-3) Atorvastatin Calcium 40 mg 05/09/21 22:00 05/31/21 21:15 Atorvastatin 40 Mg Tab FEEDTUBE 40 mg QHS RISHI Administration Dextrose 0 ml 05/09/21 10:49 05/14/21 06:55 Dextrose 10% *Hypoglycemia IV 250 ml PRN PRN Administration Hypoglycemia Fentanyl 50 mcg 05/23/21 15:00 Fentanyl 100 Mcg/2 Ml Inj IV Q10MIN PRN ANALGESIA Haloperidol Lactate 5 mg 05/09/21 18:32 05/18/21 19:52 Haloperidol Lactate 5 Mg/1 Ml Inj IV 5 mg Q6H PRN Administration Agitation Heparin Sodium (Porcine) 5,000 unit 05/27/21 22:00 06/01/21 09:55 Heparin 5,000 Unit/1 Ml Vial SUB-Q 5,000 unit Q12HR RISHI Administration Hydralazine HCl 50 mg 05/04/21 14:00 06/01/21 06:17 Hydralazine 25 Mg Tab PO 50 mg Q8HR RISHI Administration Hydrophilic Ointment 1 applic 05/05/21 15:21 Lip Therapy Vaseline TP Q2HR PRN Dry Lips Fentanyl Citrate 2,000 mcg in 100 mls @ 4.082 mls/hr 05/23/21 15:00 06/01/21 11:31 Fentanyl Drip Premix IV 0.5 mcg/kg/hr TITR RISHI 2.041 mls/hr Administration Protocol 1 MCG/KG/HR Insulin Human Lispro 0 unit 05/10/21 09:40 05/12/21 16:49 Insulin Lispro 100 Unit/Ml SUB-Q 2 unit Q6HR PRN Administration Hyperglycemia Protocol Labetalol HCl 10 mg 05/15/21 10:24 05/25/21 08:15 Labetalol 20 Mg/4 Ml Inj IV 10 mg Q4H PRN Administration sbp> 160. Lansoprazole 30 mg 05/26/21 10:00 06/01/21 09:55 Lansoprazole 30 Mg Solutab FEEDTUBE 30 mg BID RISHI Administration Metoprolol Tartrate 50 mg 05/26/21 08:00 06/01/21 08:16 Metoprolol Tartrate 25 Mg Tab FEEDTUBE 50 mg TID RISHI Administration Multi-Ingred Cream/Lotion/Oil/Oint 1 applic 05/05/21 15:21 Mineral Oil/Petrolatum, White Ophth Oint 3.5 Gm OU Q4HR PRN Dry Eye(s) Ondansetron HCl 4 mg 05/04/21 12:34 05/04/21 21:51 Ondansetron 4 Mg/2 Ml Inj IV 4 mg Q8H PRN Administration Nausea And Vomiting Oxycodone HCl 5 mg 05/30/21 11:00 05/30/21 14:55 Oxycodone 5 Mg Tab PO 5 mg Q6H PRN Administration Pain, Moderate (4-6) Polyethylene Glycol 17 gm 05/26/21 22:00 05/31/21 21:15 Polyethylene Glycol 3350 17 Gm Powder PO 17 gm QHS RISHI Administration Senna/Docusate Sodium 1 tab 05/05/21 22:00 05/31/21 21:15 Sennosides/Docusate Sodium 8.6/50 Mg Tab FEEDTUBE 1 tab BID RISHI Administration Sodium Chloride 10 ml 05/04/21 22:00 06/01/21 09:56 Sodium Chloride 0.9% 10 Ml Flush Syringe IV 10 ml BID RISHI Administration Sodium Chloride 10 ml 05/04/21 12:34 05/06/21 13:59 Sodium Chloride 0.9% 10 Ml Flush Syringe IV 10 ml PRN PRN Administration LINE FLUSH Sodium Chloride 10 ml 05/09/21 09:46 Sodium Chloride 0.9% 50 Ml Ivpb IV PRN PRN FLUSH
--- NOTE | 2021-06-01 13:59 | Progress Note ---
Assessment and Plan Cultures: Blood culture 05/07/2021 no growth so far Blood culture 05/10/2021 no growth so far Sputum culture 05/16/2021 Enterobacter 05/23/2021 tracheal aspirate culture: Enterobacter 05/26/2021 blood culture: Usual respiratory myra 05/26/2021 urine culture: No growth 05/26/2021 blood culture: No growth A/P: 56 yo M PMHx smoking, A. fib, HTN, medication non-compliance admitted with #Severe COVID-19 pneumonia: Patient presented with a week of symptoms, chest x- ray with diffuse bilateral infiltrates, admission O2 sats decreased on room air. Inflammatory markers elevated. Was not a candidate for Remdesivir. Completed steroids. #Acute hypoxemic respiratory failure: secondary to COVID-19 infection. On the vent. #VAP: Cultures with Enterobacter, s/p ertapenem. #YE: Renally dose medications. Improved. #Acute anemia #Urinary tox screen positive for amphetamines Recommendations: -Stop ertapenem after today's dose Rhonda Mooney MD, FACP, [facility] O: [phone] F: [phone] Subjective Date of service: 06/01/21 Principal diagnosis: AHRF; COVID-19 infection; NSTEMI; YE; HFrEF (35-40%); Polysubstance abuse Interval history: Low grade temp x 1. Remains on the vent. Sedated. Objective - Exam Narrative Exam: Physical Exam: Constitutional: sedated, intubated, on the vent Head, Ears, Nose: Normocephalic, atraumatic. External ears, nose normal Eyes: Conjunctivae/corneas clear. No icterus. No ptosis. Neck: intubated Oral: intubated Cardiovascular: S1, S2 + Respiratory: AE fair bilaterally and equal GI: Soft, bowel sounds + Musculoskeletal: No pedal edema, no cyanosis. Skin: No rash or abscess Hem/Lymphatic: No palpable cervical or supraclavicular nodes. No lymphangitis Psych: no agitation Neurological: sedated, intubated, on the vent, exam limited - Constitutional Vitals: Vital Signs Temp Pulse Resp BP Pulse Ox 99.3 F 69 23 110/75 97 06/01/21 11:46 06/01/21 12:01 06/01/21 12:01 06/01/21 12:01 06/01/21 12:01 Temperature -Last 24 Hours Temperature 99.3 F Temperature 98.4 F Temperature 98.1 F Temperature 98.3 F Temperature 100.4 F - Labs CBC & Chem 7: 06/01/21 04:56 06/01/21 04:56 Labs: Abnormal lab results 05/31/21 06/01/21 06/01/21 Range/Units 18:27 04:56 04:56 RBC 3.14 L (3.65-5.03) M/mm3 Hgb 9.1 L (11.8-15.2) gm/dl Hct 29.0 L (35.5-45.6) % RDW 16.3 H (13.2-15.2) % Chloride 108.4 H (98-107) mmol/L BUN 49 H (9-20) mg/dL Glucose 113 H (75-100) mg/dL POC Glucose 111 H (70-105) mg/dL Calcium 8.0 L (8.4-10.2) mg/dL 06/01/21 06/01/21 Range/Units 06:10 11:04 RBC (3.65-5.03) M/mm3 Hgb (11.8-15.2) gm/dl Hct (35.5-45.6) % RDW (13.2-15.2) % Chloride (98-107) mmol/L BUN (9-20) mg/dL Glucose (75-100) mg/dL POC Glucose 107 H 122 H (70-105) mg/dL Calcium (8.4-10.2) mg/dL
[2021-06-01] MEDS: SENNOSIDES/DOCUSATE SODIUM 8.6/50 MG TAB FEEDTUBE SCH ×2 (14:16→21:11)
--- NOTE | 2021-06-01 18:14 | Progress Note ---
Assessment and Plan Acute hypoxic resp failure on MVS COVID positive NSTEMI Acute kidney injury Cardiomyopathy EF 35-40% History of hepatitis C Elevated D-dimer. Low probability for PE seen on VQ scan Tobacco abuse Polysubstance abusepatient with positive methamphetamines and has a history of cocaine use Anemia Failed extubation x3 now awaiting trach placement Continue with daily SBTs Case management actively searching for family so as to proceed with trach and PEG placement - VAP bundle addressed, aspiration precautions - titrate supplemental oxygen to keep SpO2 88-90% - Bronchodilators with pulmonary hygiene per RT - continue accuchecks with glycemic control per SSI (While critically ill target blood glucose of 140-180 mg/dL; avoid hypoglycemia) - avoid nephrotoxins, renally dose all medications - avoid benzodiazepines, reduce the possibility of delirium - prn analgesia per pain score - Maintenance of sleep-wake cycle, avoid delirium - Stress ulcer prophylaxis -Therapeutic anticoagulation- heparin infusion - mobility, off loading and frequent turning per facility protocol for pressure ulcer prevention - Monitor hemodynamics closely -Supportive transfusions as clinically indicated to keep HgB >7g/dL - continue other care per attending / other consultants CONDITION: CRITICAL PROGNOSIS: GUARDED CODE STATUS: FULL CODE The high probability of a clinically significant, sudden or life-threatening deterioration of the [respiratory, cardiovascular & neurologic ] system(s) required my full and direct attention, intervention and personal management. The aggregate critical care time was [33] minutes without overlap. Time includes s pent on; [x] Data Review and interpretation [x] Patient assessment and monitoring of vital signs [x] Documentation [x] Medication orders and management Subjective Date of service: 06/01/21 Principal diagnosis: AHRF; COVID-19 infection; NSTEMI; YE; HFrEF (35-40%); Polysubstance abuse Interval history: Follow up for acute hypoxemic resp failure on MVS, COVID infection;YE; Hypertension Seen and examined. Vitals, labs, medications, chart and imaging reviewed. Discussed with respiratory and nursing care staff. On going fevers, more awake Fentanyl at 0.5mcg Has Merino catheter for urinary retention MVS: 16//8/25% Daily SBT as tolerated Objective Vital Signs - 12hr 06/01/21 06/01/21 06/01/21 07:00 07:17 08:00 Temperature 98.4 F Pulse Rate 75 75 Pulse Rate [ 68 From Monitor] Respiratory 25 H 23 Rate Blood Pressure 133/88 122/84 O2 Sat by Pulse 99 97 Oximetry 06/01/21 06/01/21 06/01/21 08:16 09:00 10:00 Temperature Pulse Rate 76 66 69 Pulse Rate [ From Monitor] Respiratory 29 H 35 H Rate Blood Pressure 120/80 116/79 140/92 O2 Sat by Pulse 97 97 Oximetry 06/01/21 06/01/21 06/01/21 11:00 11:46 12:00 Temperature 99.3 F Pulse Rate 70 68 Pulse Rate [ 69 From Monitor] Respiratory 41 H 28 H Rate Blood Pressure 137/92 110/75 O2 Sat by Pulse 96 97 Oximetry 06/01/21 06/01/21 06/01/21 12:01 13:00 14:00 Temperature Pulse Rate 69 71 74 Pulse Rate [ From Monitor] Respiratory 23 27 H 30 H Rate Blood Pressure 110/75 118/81 131/78 O2 Sat by Pulse 97 97 94 Oximetry 06/01/21 06/01/21 06/01/21 14:07 15:01 16:00 Temperature Pulse Rate 78 66 67 Pulse Rate [ 65 From Monitor] Respiratory 33 H 25 H Rate Blood Pressure 131/78 128/87 122/85 O2 Sat by Pulse 98 98 Oximetry 06/01/21 06/01/21 06/01/21 16:17 17:00 18:00 Temperature 99.4 F Pulse Rate 69 67 Pulse Rate [ From Monitor] Respiratory 34 H 21 Rate Blood Pressure 124/86 116/79 O2 Sat by Pulse 97 96 Oximetry Constitutional: appears uncomfortable, other (middle aged male with mildly increased respiratory effort at rest) Eyes: non-icteric ENT: oropharynx moist, other (ETT 24 cm ELIZABET) Neck: supple, no lymphadenopathy, no JVD Effort: mildly labored Ascultation: Bilateral: clear, diminished breath sounds, rhonchi Percussion: Bilateral: not dull Cardiovascular: regular rate and rhythm, other (S1,S2) Gastrointestinal: normoactive bowel sounds, soft, non-tender, non-distended Integumentary: normal Extremities: no cyanosis, no edema, pulses normal Neurologic: non-focal exam (grossly), pupils equal and round, unable to assess (sedated) Psychiatric: other CBC and BMP: 06/05/21 04:24 06/05/21 04:24 ABG, PT/INR, D-dimer: ABG ABG pH 7.443 pH Units (7.350-7.450) 05/27/21 09:20 ABG pCO2 38.8 mm Hg 05/27/21 09:20 ABG pO2 115.2 mm Hg (80.0-90.0) H 05/27/21 09:20 ABG O2 Saturation 98.3 % (95.0-99.0) 05/27/21 09:20 PT/INR, D-dimer PT 14.9 Sec. (12.2-14.9) 05/25/21 04:25 INR 1.05 (0.87-1.13) 05/25/21 04:25 D-Dimer 2730.61 ng/mlDDU (0-234) H 05/12/21 07:19 Abnormal lab findings: Abnormal Labs 05/04/21 05/04/21 05/04/21 07:25 07:25 07:25 WBC 12.9 H RBC 3.04 L Hgb 9.5 L Hct 28.4 L MCV MCHC RDW 15.4 H Lymph % (Auto) 11.4 L [place] % (Auto) 10.1 H Lymph # (Auto) [place] # (Auto) 1.3 H Seg Neutrophils % 78.0 H Seg Neuts % (Manual) Lymphocytes % (Manual) Monocytes % (Manual) Seg Neutrophils # 10.0 H Seg Neutrophils # Man Lymphocytes # (Manual) Monocytes # (Manual) Haptoglobin PT 15.1 H APTT D-Dimer Heparin Anti-Xa Level ABG pH ABG pO2 ABG HCO3 ABG O2 Saturation ABG Base Excess ABG Hemoglobin Oxyhemoglobin Sodium 135 L Potassium Chloride Carbon Dioxide BUN 65 H Creatinine 3.4 H Glucose 118 H POC Glucose Calcium Phosphorus Magnesium Iron TIBC Ferritin Total Bilirubin 1.50 H AST 519 H ALT 475 H Lactate Dehydrogenase Total Creatine Kinase Troponin T 1.300 H* C-Reactive Protein Albumin Urine WBC (Auto) Urine Creatinine Urine Total Protein Complement C3 Coronavirus (PCR) Hepatitis C Antibody Crossmatch 05/04/21 05/04/21 05/04/21 07:25 08:42 08:42 WBC RBC Hgb Hct MCV MCHC RDW Lymph % (Auto) [place] % (Auto) Lymph # (Auto) [place] # (Auto) Seg Neutrophils % Seg Neuts % (Manual) Lymphocytes % (Manual) Monocytes % (Manual) Seg Neutrophils # Seg Neutrophils # Man Lymphocytes # (Manual) Monocytes # (Manual) Haptoglobin PT APTT D-Dimer 579.49 H Heparin Anti-Xa Level ABG pH ABG pO2 ABG HCO3 ABG O2 Saturation ABG Base Excess ABG Hemoglobin Oxyhemoglobin Sodium Potassium Chloride Carbon Dioxide BUN Creatinine Glucose POC Glucose Calcium Phosphorus Magnesium Iron TIBC Ferritin Total Bilirubin AST ALT Lactate Dehydrogenase Total Creatine Kinase 406 H Troponin T 1.230 H* C-Reactive Protein Albumin Urine WBC (Auto) Urine Creatinine Urine Total Protein Complement C3 Coronavirus (PCR) Hepatitis C Antibody Crossmatch 05/04/21 05/04/21 05/04/21 10:13 13:34 18:14 WBC RBC Hgb 8.8 L Hct 26.6 L MCV MCHC RDW Lymph % (Auto) [place] % (Auto) Lymph # (Auto) [place] # (Auto) Seg Neutrophils % Seg Neuts % (Manual) Lymphocytes % (Manual) Monocytes % (Manual) Seg Neutrophils # Seg Neutrophils # Man Lymphocytes # (Manual) Monocytes # (Manual) Haptoglobin PT APTT D-Dimer Heparin Anti-Xa Level < 0.10 L ABG pH ABG pO2 ABG HCO3 ABG O2 Saturation ABG Base Excess ABG Hemoglobin Oxyhemoglobin Sodium Potassium Chloride Carbon Dioxide BUN Creatinine Glucose POC Glucose Calcium Phosphorus Magnesium Iron TIBC Ferritin Total Bilirubin AST ALT Lactate Dehydrogenase Total Creatine Kinase Troponin T 1.400 H* C-Reactive Protein Albumin Urine WBC (Auto) Urine Creatinine Urine Total Protein Complement C3 Coronavirus (PCR) Hepatitis C Antibody Crossmatch 05/05/21 05/05/21 05/05/21 03:40 03:40 03:40 WBC RBC Hgb Hct MCV MCHC RDW Lymph % (Auto) [place] % (Auto) Lymph # (Auto) [place] # (Auto) Seg Neutrophils % Seg Neuts % (Manual) Lymphocytes % (Manual) Monocytes % (Manual) Seg Neutrophils # Seg Neutrophils # Man Lymphocytes # (Manual) Monocytes # (Manual) Haptoglobin PT APTT D-Dimer Heparin Anti-Xa Level 0.11 L ABG pH ABG pO2 ABG HCO3 ABG O2 Saturation ABG Base Excess ABG Hemoglobin Oxyhemoglobin Sodium Potassium 3.3 L Chloride Carbon Dioxide BUN 59 H Creatinine 2.6 H Glucose 139 H POC Glucose Calcium Phosphorus Magnesium Iron TIBC Ferritin Total Bilirubin AST ALT Lactate Dehydrogenase Total Creatine Kinase Troponin T C-Reactive Protein Albumin Urine WBC (Auto) Urine Creatinine Urine Total Protein Complement C3 Coronavirus (PCR) Hepatitis C Antibody Reactive A Crossmatch 05/05/21 05/05/21 05/05/21 03:40 08:30 09:57 WBC RBC Hgb Hct MCV MCHC RDW Lymph % (Auto) [place] % (Auto) Lymph # (Auto) [place] # (Auto) Seg Neutrophils % Seg Neuts % (Manual) Lymphocytes % (Manual) Monocytes % (Manual) Seg Neutrophils # Seg Neutrophils # Man Lymphocytes # (Manual) Monocytes # (Manual) Haptoglobin PT APTT D-Dimer Heparin Anti-Xa Level ABG pH ABG pO2 ABG HCO3 ABG O2 Saturation ABG Base Excess ABG Hemoglobin Oxyhemoglobin Sodium Potassium Chloride Carbon Dioxide BUN Creatinine Glucose POC Glucose Calcium Phosphorus Magnesium Iron TIBC Ferritin Total Bilirubin AST ALT Lactate Dehydrogenase Total Creatine Kinase Troponin T C-Reactive Protein Albumin Urine WBC (Auto) Urine Creatinine 100.8 H Urine Total Protein Complement C3 72 L Coronavirus (PCR) Positive A Hepatitis C Antibody Crossmatch 05/05/21 05/05/21 05/05/21 11:28 17:00 19:51 WBC RBC Hgb Hct MCV MCHC RDW Lymph % (Auto) [place] % (Auto) Lymph # (Auto) [place] # (Auto) Seg Neutrophils % Seg Neuts % (Manual) Lymphocytes % (Manual) Monocytes % (Manual) Seg Neutrophils # Seg Neutrophils # Man Lymphocytes # (Manual) Monocytes # (Manual) Haptoglobin PT APTT D-Dimer Heparin Anti-Xa Level 0.10 L 0.22 L ABG pH 7.304 L ABG pO2 140.8 H ABG HCO3 ABG O2 Saturation ABG Base Excess -2.1 L ABG Hemoglobin 10.2 L Oxyhemoglobin Sodium Potassium Chloride Carbon Dioxide BUN Creatinine Glucose POC Glucose Calcium Phosphorus Magnesium Iron TIBC Ferritin Total Bilirubin AST ALT Lactate Dehydrogenase Total Creatine Kinase Troponin T C-Reactive Protein Albumin Urine WBC (Auto) Urine Creatinine Urine Total Protein Complement C3 Coronavirus (PCR) Hepatitis C Antibody Crossmatch 05/06/21 05/06/21 05/06/21 03:47 06:15 17:53 WBC RBC Hgb 9.0 L Hct 27.8 L MCV MCHC RDW Lymph % (Auto) [place] % (Auto) Lymph # (Auto) [place] # (Auto) Seg Neutrophils % Seg Neuts % (Manual) Lymphocytes % (Manual) Monocytes % (Manual) Seg Neutrophils # Seg Neutrophils # Man Lymphocytes # (Manual) Monocytes # (Manual) Haptoglobin PT APTT D-Dimer Heparin Anti-Xa Level 0.10 L ABG pH ABG pO2 143.5 H ABG HCO3 ABG O2 Saturation ABG Base Excess -2.4 L ABG Hemoglobin 6.9 L Oxyhemoglobin Sodium Potassium Chloride Carbon Dioxide BUN Creatinine Glucose POC Glucose Calcium Phosphorus Magnesium Iron TIBC Ferritin Total Bilirubin AST ALT Lactate Dehydrogenase Total Creatine Kinase Troponin T C-Reactive Protein Albumin Urine WBC (Auto) Urine Creatinine Urine Total Protein Complement C3 Coronavirus (PCR) Hepatitis C Antibody Crossmatch 05/07/21 05/07/21 05/07/21 00:07 03:22 03:45 WBC RBC Hgb Hct MCV MCHC RDW Lymph % (Auto) [place] % (Auto) Lymph # (Auto) [place] # (Auto) Seg Neutrophils % Seg Neuts % (Manual) Lymphocytes % (Manual) Monocytes % (Manual) Seg Neutrophils # Seg Neutrophils # Man Lymphocytes # (Manual) Monocytes # (Manual) Haptoglobin PT APTT D-Dimer Heparin Anti-Xa Level < 0.10 L ABG pH ABG pO2 104.3 H ABG HCO3 ABG O2 Saturation ABG Base Excess -2.6 L ABG Hemoglobin 9.1 L Oxyhemoglobin Sodium Potassium Chloride 107.1 H Carbon Dioxide 20 L BUN 56 H Creatinine 2.9 H Glucose POC Glucose Calcium Phosphorus Magnesium Iron TIBC Ferritin Total Bilirubin AST ALT Lactate Dehydrogenase Total Creatine Kinase Troponin T C-Reactive Protein Albumin Urine WBC (Auto) Urine Creatinine Urine Total Protein Complement C3 Coronavirus (PCR) Hepatitis C Antibody Crossmatch 05/07/21 05/07/21 05/07/21 07:44 16:28 22:41 WBC RBC Hgb Hct MCV MCHC RDW Lymph % (Auto) [place] % (Auto) Lymph # (Auto) [place] # (Auto) Seg Neutrophils % Seg Neuts % (Manual) Lymphocytes % (Manual) Monocytes % (Manual) Seg Neutrophils # Seg Neutrophils # Man Lymphocytes # (Manual) Monocytes # (Manual) Haptoglobin PT APTT D-Dimer Heparin Anti-Xa Level < 0.10 L 0.10 L < 0.10 L ABG pH ABG pO2 ABG HCO3 ABG O2 Saturation ABG Base Excess ABG Hemoglobin Oxyhemoglobin Sodium Potassium Chloride Carbon Dioxide BUN Creatinine Glucose POC Glucose Calcium Phosphorus Magnesium Iron TIBC Ferritin Total Bilirubin AST ALT Lactate Dehydrogenase Total Creatine Kinase Troponin T C-Reactive Protein Albumin Urine WBC (Auto) Urine Creatinine Urine Total Protein Complement C3 Coronavirus (PCR) Hepatitis C Antibody Crossmatch 05/08/21 05/08/21 05/08/21 03:25 04:34 07:30 WBC 12.4 H RBC 3.02 L Hgb 9.5 L Hct 29.2 L MCV 97 H MCHC RDW 16.7 H Lymph % (Auto) 8.1 L [place] % (Auto) 11.0 H Lymph # (Auto) 1.0 L [place] # (Auto) 1.4 H Seg Neutrophils % 80.1 H Seg Neuts % (Manual) Lymphocytes % (Manual) Monocytes % (Manual) Seg Neutrophils # 9.9 H Seg Neutrophils # Man Lymphocytes # (Manual) Monocytes # (Manual) Haptoglobin PT APTT D-Dimer Heparin Anti-Xa Level ABG pH ABG pO2 139.0 H ABG HCO3 ABG O2 Saturation ABG Base Excess ABG Hemoglobin 8.8 L Oxyhemoglobin Sodium Potassium Chloride 110.5 H Carbon Dioxide BUN 59 H Creatinine 2.8 H Glucose 103 H POC Glucose Calcium Phosphorus Magnesium Iron TIBC Ferritin Total Bilirubin AST ALT 327 H Lactate Dehydrogenase Total Creatine Kinase Troponin T C-Reactive Protein Albumin 3.1 L Urine WBC (Auto) Urine Creatinine Urine Total Protein Complement C3 Coronavirus (PCR) Hepatitis C Antibody Crossmatch 05/09/21 05/09/21 05/09/21 04:10 04:20 04:20 WBC 11.7 H RBC 2.79 L Hgb 8.7 L Hct 26.5 L MCV 95 H MCHC RDW 16.2 H Lymph % (Auto) [place] % (Auto) Lymph # (Auto) [place] # (Auto) Seg Neutrophils % Seg Neuts % (Manual) Lymphocytes % (Manual) Monocytes % (Manual) Seg Neutrophils # Seg Neutrophils # Man Lymphocytes # (Manual) Monocytes # (Manual) Haptoglobin PT APTT D-Dimer Heparin Anti-Xa Level ABG pH ABG pO2 161.6 H ABG HCO3 ABG O2 Saturation ABG Base Excess ABG Hemoglobin 8.3 L Oxyhemoglobin Sodium 151 H Potassium Chloride 114.5 H Carbon Dioxide 21 L BUN 57 H Creatinine 2.4 H Glucose POC Glucose Calcium Phosphorus Magnesium Iron TIBC Ferritin Total Bilirubin AST ALT 210 H Lactate Dehydrogenase Total Creatine Kinase Troponin T C-Reactive Protein Albumin 2.9 L Urine WBC (Auto) Urine Creatinine Urine Total Protein Complement C3 Coronavirus (PCR) Hepatitis C Antibody Crossmatch 05/09/21 05/09/21 05/09/21 09:48 09:48 13:22 WBC 11.6 H RBC 3.00 L Hgb 9.0 L Hct 28.4 L MCV MCHC RDW 15.9 H Lymph % (Auto) 5.9 L [place] % (Auto) 8.9 H Lymph # (Auto) 0.7 L [place] # (Auto) 1.0 H Seg Neutrophils % 84.3 H Seg Neuts % (Manual) Lymphocytes % (Manual) Monocytes % (Manual) Seg Neutrophils # 9.8 H Seg Neutrophils # Man Lymphocytes # (Manual) Monocytes # (Manual) Haptoglobin PT APTT D-Dimer Heparin Anti-Xa Level ABG pH ABG pO2 ABG HCO3 ABG O2 Saturation ABG Base Excess ABG Hemoglobin Oxyhemoglobin Sodium Potassium Chloride Carbon Dioxide BUN Creatinine Glucose POC Glucose Calcium Phosphorus Magnesium Iron TIBC Ferritin Total Bilirubin AST ALT Lactate Dehydrogenase Total Creatine Kinase Troponin T C-Reactive Protein 8.70 H Albumin Urine WBC (Auto) 25.0 H Urine Creatinine Urine Total Protein Complement C3 Coronavirus (PCR) Hepatitis C Antibody Crossmatch 05/09/21 05/09/21 05/10/21 15:20 18:16 04:57 WBC RBC 2.87 L Hgb 8.8 L Hct 27.0 L MCV MCHC RDW 15.9 H Lymph % (Auto) [place] % (Auto) Lymph # (Auto) [place] # (Auto) Seg Neutrophils % Seg Neuts % (Manual) Lymphocytes % (Manual) Monocytes % (Manual) Seg Neutrophils # Seg Neutrophils # Man Lymphocytes # (Manual) Monocytes # (Manual) Haptoglobin PT APTT D-Dimer Heparin Anti-Xa Level ABG pH ABG pO2 102.0 H ABG HCO3 ABG O2 Saturation ABG Base Excess -2.8 L ABG Hemoglobin 9.0 L Oxyhemoglobin Sodium Potassium Chloride Carbon Dioxide BUN Creatinine Glucose POC Glucose 130 H Calcium Phosphorus Magnesium Iron TIBC Ferritin Total Bilirubin AST ALT Lactate Dehydrogenase Total Creatine Kinase Troponin T C-Reactive Protein Albumin Urine WBC (Auto) Urine Creatinine Urine Total Protein Complement C3 Coronavirus (PCR) Hepatitis C Antibody Crossmatch 05/10/21 05/10/21 05/10/21 04:57 04:57 04:57 WBC RBC Hgb Hct MCV MCHC RDW Lymph % (Auto) [place] % (Auto) Lymph # (Auto) [place] # (Auto) Seg Neutrophils % Seg Neuts % (Manual) Lymphocytes % (Manual) Monocytes % (Manual) Seg Neutrophils # Seg Neutrophils # Man Lymphocytes # (Manual) Monocytes # (Manual) Haptoglobin PT APTT D-Dimer 1546.78 H Heparin Anti-Xa Level ABG pH ABG pO2 ABG HCO3 ABG O2 Saturation ABG Base Excess ABG Hemoglobin Oxyhemoglobin Sodium 148 H Potassium Chloride 114.9 H Carbon Dioxide 21 L BUN 57 H Creatinine 2.3 H Glucose 157 H POC Glucose Calcium Phosphorus Magnesium Iron TIBC Ferritin 888.2 H Total Bilirubin AST ALT Lactate Dehydrogenase 289 H Total Creatine Kinase Troponin T C-Reactive Protein 6.80 H Albumin Urine WBC (Auto) Urine Creatinine Urine Total Protein Complement C3 Coronavirus (PCR) Hepatitis C Antibody Crossmatch 05/10/21 05/10/21 05/10/21 05:09 08:04 11:03 WBC RBC Hgb Hct MCV MCHC RDW Lymph % (Auto) [place] % (Auto) Lymph # (Auto) [place] # (Auto) Seg Neutrophils % Seg Neuts % (Manual) Lymphocytes % (Manual) Monocytes % (Manual) Seg Neutrophils # Seg Neutrophils # Man Lymphocytes # (Manual) Monocytes # (Manual) Haptoglobin PT APTT D-Dimer Heparin Anti-Xa Level ABG pH 7.473 H ABG pO2 114.6 H ABG HCO3 ABG O2 Saturation ABG Base Excess ABG Hemoglobin 9.5 L Oxyhemoglobin Sodium Potassium Chloride Carbon Dioxide BUN Creatinine Glucose POC Glucose 152 H Calcium Phosphorus Magnesium Iron TIBC Ferritin Total Bilirubin AST ALT Lactate Dehydrogenase Total Creatine Kinase Troponin T C-Reactive Protein Albumin Urine WBC (Auto) Urine Creatinine 100.8 H Urine Total Protein 42 H Complement C3 Coronavirus (PCR) Hepatitis C Antibody Crossmatch 05/10/21 05/10/21 05/10/21 13:07 18:01 23:31 WBC RBC Hgb Hct MCV MCHC RDW Lymph % (Auto) [place] % (Auto) Lymph # (Auto) [place] # (Auto) Seg Neutrophils % Seg Neuts % (Manual) Lymphocytes % (Manual) Monocytes % (Manual) Seg Neutrophils # Seg Neutrophils # Man Lymphocytes # (Manual) Monocytes # (Manual) Haptoglobin PT APTT D-Dimer Heparin Anti-Xa Level ABG pH ABG pO2 ABG HCO3 ABG O2 Saturation ABG Base Excess ABG Hemoglobin Oxyhemoglobin Sodium Potassium Chloride Carbon Dioxide BUN Creatinine Glucose POC Glucose 150 H 189 H 142 H Calcium Phosphorus Magnesium Iron TIBC Ferritin Total Bilirubin AST ALT Lactate Dehydrogenase Total Creatine Kinase Troponin T C-Reactive Protein Albumin Urine WBC (Auto) Urine Creatinine Urine Total Protein Complement C3 Coronavirus (PCR) Hepatitis C Antibody Crossmatch 05/10/21 05/11/21 05/11/21 Unknown 05:25 06:53 WBC RBC Hgb Hct MCV MCHC RDW Lymph % (Auto) [place] % (Auto) Lymph # (Auto) [place] # (Auto) Seg Neutrophils % Seg Neuts % (Manual) Lymphocytes % (Manual) Monocytes % (Manual) Seg Neutrophils # Seg Neutrophils # Man Lymphocytes # (Manual) Monocytes # (Manual) Haptoglobin PT APTT D-Dimer Heparin Anti-Xa Level ABG pH ABG pO2 126.6 H ABG HCO3 ABG O2 Saturation ABG Base Excess ABG Hemoglobin 9.2 L Oxyhemoglobin Sodium 150 H Potassium Chloride 116.6 H Carbon Dioxide 21 L BUN 62 H Creatinine 2.5 H Glucose 142 H POC Glucose 163 H Calcium Phosphorus Magnesium Iron TIBC Ferritin Total Bilirubin AST ALT Lactate Dehydrogenase Total Creatine Kinase Troponin T C-Reactive Protein Albumin Urine WBC (Auto) Urine Creatinine Urine Total Protein Complement C3 Coronavirus (PCR) Hepatitis C Antibody Crossmatch 05/11/21 05/11/21 05/11/21 06:53 11:06 13:51 WBC RBC 3.07 L Hgb 9.3 L Hct 29.0 L MCV 95 H MCHC RDW 16.1 H Lymph % (Auto) [place] % (Auto) Lymph # (Auto) [place] # (Auto) Seg Neutrophils % Seg Neuts % (Manual) Lymphocytes % (Manual) Monocytes % (Manual) Seg Neutrophils # Seg Neutrophils # Man Lymphocytes # (Manual) Monocytes # (Manual) Haptoglobin PT APTT D-Dimer Heparin Anti-Xa Level ABG pH ABG pO2 74.9 L ABG HCO3 ABG O2 Saturation ABG Base Excess -3.3 L ABG Hemoglobin 10.8 L Oxyhemoglobin Sodium Potassium Chloride Carbon Dioxide BUN Creatinine Glucose POC Glucose 145 H Calcium Phosphorus Magnesium Iron TIBC Ferritin Total Bilirubin AST ALT Lactate Dehydrogenase Total Creatine Kinase Troponin T C-Reactive Protein Albumin Urine WBC (Auto) Urine Creatinine Urine Total Protein Complement C3 Coronavirus (PCR) Hepatitis C Antibody Crossmatch 05/11/21 05/11/21 05/11/21 14:43 14:43 15:47 WBC RBC Hgb 9.2 L Hct 29.7 L MCV MCHC RDW Lymph % (Auto) [place] % (Auto) Lymph # (Auto) [place] # (Auto) Seg Neutrophils % Seg Neuts % (Manual) Lymphocytes % (Manual) Monocytes % (Manual) Seg Neutrophils # Seg Neutrophils # Man Lymphocytes # (Manual) Monocytes # (Manual) Haptoglobin PT 15.6 H APTT D-Dimer Heparin Anti-Xa Level ABG pH ABG pO2 ABG HCO3 ABG O2 Saturation ABG Base Excess ABG Hemoglobin Oxyhemoglobin Sodium Potassium Chloride Carbon Dioxide BUN Creatinine Glucose POC Glucose 137 H Calcium Phosphorus Magnesium Iron TIBC Ferritin Total Bilirubin AST ALT Lactate Dehydrogenase Total Creatine Kinase Troponin T C-Reactive Protein Albumin Urine WBC (Auto) Urine Creatinine Urine Total Protein Complement C3 Coronavirus (PCR) Hepatitis C Antibody Crossmatch 05/12/21 05/12/21 05/12/21 00:04 05:07 07:19 WBC 11.9 H RBC 3.00 L Hgb 9.1 L Hct 28.9 L MCV 96 H MCHC RDW 16.7 H Lymph % (Auto) 11.5 L [place] % (Auto) 8.2 H Lymph # (Auto) [place] # (Auto) 1.0 H Seg Neutrophils % 80.0 H Seg Neuts % (Manual) Lymphocytes % (Manual) Monocytes % (Manual) Seg Neutrophils # 9.6 H Seg Neutrophils # Man Lymphocytes # (Manual) Monocytes # (Manual) Haptoglobin PT APTT D-Dimer Heparin Anti-Xa Level ABG pH ABG pO2 ABG HCO3 ABG O2 Saturation ABG Base Excess ABG Hemoglobin Oxyhemoglobin Sodium Potassium Chloride Carbon Dioxide BUN Creatinine Glucose POC Glucose 121 H 117 H Calcium Phosphorus Magnesium Iron TIBC Ferritin Total Bilirubin AST ALT Lactate Dehydrogenase Total Creatine Kinase Troponin T C-Reactive Protein Albumin Urine WBC (Auto) Urine Creatinine Urine Total Protein Complement C3 Coronavirus (PCR) Hepatitis C Antibody Crossmatch 05/12/21 05/12/21 05/12/21 07:19 07:19 07:19 WBC RBC Hgb Hct MCV MCHC RDW Lymph % (Auto) [place] % (Auto) Lymph # (Auto) [place] # (Auto) Seg Neutrophils % Seg Neuts % (Manual) Lymphocytes % (Manual) Monocytes % (Manual) Seg Neutrophils # Seg Neutrophils # Man Lymphocytes # (Manual) Monocytes # (Manual) Haptoglobin PT APTT D-Dimer 2730.61 H Heparin Anti-Xa Level ABG pH ABG pO2 ABG HCO3 ABG O2 Saturation ABG Base Excess ABG Hemoglobin Oxyhemoglobin Sodium 146 H Potassium 5.1 H Chloride 112.4 H Carbon Dioxide 21 L BUN 61 H Creatinine 2.2 H Glucose 136 H POC Glucose Calcium 8.1 L Phosphorus Magnesium Iron TIBC Ferritin 640.2 H Total Bilirubin AST ALT Lactate Dehydrogenase 314 H Total Creatine Kinase Troponin T C-Reactive Protein 1.60 H Albumin Urine WBC (Auto) Urine Creatinine Urine Total Protein Complement C3 Coronavirus (PCR) Hepatitis C Antibody Crossmatch 05/12/21 05/12/21 05/12/21 11:10 16:10 16:38 WBC RBC Hgb Hct MCV MCHC RDW Lymph % (Auto) [place] % (Auto) Lymph # (Auto) [place] # (Auto) Seg Neutrophils % Seg Neuts % (Manual) Lymphocytes % (Manual) Monocytes % (Manual) Seg Neutrophils # Seg Neutrophils # Man Lymphocytes # (Manual) Monocytes # (Manual) Haptoglobin PT APTT D-Dimer Heparin Anti-Xa Level 0.20 L ABG pH ABG pO2 ABG HCO3 ABG O2 Saturation ABG Base Excess ABG Hemoglobin Oxyhemoglobin Sodium Potassium Chloride Carbon Dioxide BUN Creatinine Glucose POC Glucose 131 H 157 H Calcium Phosphorus Magnesium Iron TIBC Ferritin Total Bilirubin AST ALT Lactate Dehydrogenase Total Creatine Kinase Troponin T C-Reactive Protein Albumin Urine WBC (Auto) Urine Creatinine Urine Total Protein Complement C3 Coronavirus (PCR) Hepatitis C Antibody Crossmatch 05/12/21 05/13/21 05/13/21 23:30 00:12 04:20 WBC RBC Hgb Hct MCV MCHC RDW Lymph % (Auto) [place] % (Auto) Lymph # (Auto) [place] # (Auto) Seg Neutrophils % Seg Neuts % (Manual) Lymphocytes % (Manual) Monocytes % (Manual) Seg Neutrophils # Seg Neutrophils # Man Lymphocytes # (Manual) Monocytes # (Manual) Haptoglobin PT APTT D-Dimer Heparin Anti-Xa Level 0.13 L ABG pH ABG pO2 ABG HCO3 ABG O2 Saturation ABG Base Excess ABG Hemoglobin Oxyhemoglobin Sodium Potassium Chloride 111.2 H Carbon Dioxide BUN 53 H Creatinine 1.9 H Glucose 121 H POC Glucose 115 H Calcium 8.3 L Phosphorus Magnesium Iron TIBC Ferritin Total Bilirubin AST ALT Lactate Dehydrogenase Total Creatine Kinase Troponin T C-Reactive Protein Albumin Urine WBC (Auto) Urine Creatinine Urine Total Protein Complement C3 Coronavirus (PCR) Hepatitis C Antibody Crossmatch 05/13/21 05/13/21 05/13/21 04:20 11:15 11:29 WBC 13.1 H RBC 2.86 L Hgb 8.5 L Hct 26.9 L MCV MCHC RDW 15.7 H Lymph % (Auto) [place] % (Auto) Lymph # (Auto) [place] # (Auto) Seg Neutrophils % Seg Neuts % (Manual) Lymphocytes % (Manual) Monocytes % (Manual) Seg Neutrophils # Seg Neutrophils # Man Lymphocytes # (Manual) Monocytes # (Manual) Haptoglobin PT APTT D-Dimer Heparin Anti-Xa Level ABG pH 7.456 H ABG pO2 106.0 H ABG HCO3 ABG O2 Saturation ABG Base Excess ABG Hemoglobin 7.1 L Oxyhemoglobin Sodium Potassium Chloride Carbon Dioxide BUN Creatinine Glucose POC Glucose 121 H Calcium Phosphorus Magnesium Iron TIBC Ferritin Total Bilirubin AST ALT Lactate Dehydrogenase Total Creatine Kinase Troponin T C-Reactive Protein Albumin Urine WBC (Auto) Urine Creatinine Urine Total Protein Complement C3 Coronavirus (PCR) Hepatitis C Antibody Crossmatch 05/13/21 05/13/21 05/14/21 16:38 23:43 04:26 WBC 14.2 H RBC 3.11 L Hgb 9.4 L Hct 29.3 L MCV MCHC RDW 15.4 H Lymph % (Auto) [place] % (Auto) Lymph # (Auto) [place] # (Auto) Seg Neutrophils % Seg Neuts % (Manual) Lymphocytes % (Manual) Monocytes % (Manual) Seg Neutrophils # Seg Neutrophils # Man Lymphocytes # (Manual) Monocytes # (Manual) Haptoglobin PT APTT D-Dimer Heparin Anti-Xa Level ABG pH ABG pO2 ABG HCO3 ABG O2 Saturation ABG Base Excess ABG Hemoglobin Oxyhemoglobin Sodium Potassium Chloride Carbon Dioxide BUN Creatinine Glucose POC Glucose 119 H 55 L Calcium Phosphorus Magnesium Iron TIBC Ferritin Total Bilirubin AST ALT Lactate Dehydrogenase Total Creatine Kinase Troponin T C-Reactive Protein Albumin Urine WBC (Auto) Urine Creatinine Urine Total Protein Complement C3 Coronavirus (PCR) Hepatitis C Antibody Crossmatch 05/14/21 05/14/21 05/14/21 04:26 05:26 06:51 WBC RBC Hgb Hct MCV MCHC RDW Lymph % (Auto) [place] % (Auto) Lymph # (Auto) [place] # (Auto) Seg Neutrophils % Seg Neuts % (Manual) Lymphocytes % (Manual) Monocytes % (Manual) Seg Neutrophils # Seg Neutrophils # Man Lymphocytes # (Manual) Monocytes # (Manual) Haptoglobin PT APTT D-Dimer Heparin Anti-Xa Level ABG pH ABG pO2 ABG HCO3 ABG O2 Saturation ABG Base Excess ABG Hemoglobin Oxyhemoglobin Sodium Potassium 3.4 L Chloride 107.6 H Carbon Dioxide BUN 42 H Creatinine 1.9 H Glucose POC Glucose 51 L 62 L Calcium Phosphorus Magnesium Iron TIBC Ferritin Total Bilirubin AST ALT Lactate Dehydrogenase Total Creatine Kinase Troponin T C-Reactive Protein Albumin Urine WBC (Auto) Urine Creatinine Urine Total Protein Complement C3 Coronavirus (PCR) Hepatitis C Antibody Crossmatch 05/14/21 05/14/21 05/14/21 09:58 12:05 12:08 WBC RBC Hgb Hct MCV MCHC RDW Lymph % (Auto) [place] % (Auto) Lymph # (Auto) [place] # (Auto) Seg Neutrophils % Seg Neuts % (Manual) Lymphocytes % (Manual) Monocytes % (Manual) Seg Neutrophils # Seg Neutrophils # Man Lymphocytes # (Manual) Monocytes # (Manual) Haptoglobin PT APTT D-Dimer Heparin Anti-Xa Level ABG pH ABG pO2 ABG HCO3 ABG O2 Saturation ABG Base Excess ABG Hemoglobin Oxyhemoglobin Sodium Potassium 3.4 L Chloride Carbon Dioxide BUN 36 H Creatinine 1.8 H Glucose 133 H POC Glucose 60 L 127 H Calcium Phosphorus Magnesium Iron TIBC Ferritin Total Bilirubin AST ALT Lactate Dehydrogenase Total Creatine Kinase Troponin T C-Reactive Protein Albumin Urine WBC (Auto) Urine Creatinine Urine Total Protein Complement C3 Coronavirus (PCR) Hepatitis C Antibody Crossmatch 05/14/21 05/14/21 05/15/21 17:20 23:37 05:34 WBC RBC Hgb Hct MCV MCHC RDW Lymph % (Auto) [place] % (Auto) Lymph # (Auto) [place] # (Auto) Seg Neutrophils % Seg Neuts % (Manual) Lymphocytes % (Manual) Monocytes % (Manual) Seg Neutrophils # Seg Neutrophils # Man Lymphocytes # (Manual) Monocytes # (Manual) Haptoglobin PT APTT D-Dimer Heparin Anti-Xa Level ABG pH ABG pO2 ABG HCO3 ABG O2 Saturation ABG Base Excess ABG Hemoglobin Oxyhemoglobin Sodium Potassium Chloride Carbon Dioxide BUN Creatinine Glucose POC Glucose 144 H 115 H 119 H Calcium Phosphorus Magnesium Iron TIBC Ferritin Total Bilirubin AST ALT Lactate Dehydrogenase Total Creatine Kinase Troponin T C-Reactive Protein Albumin Urine WBC (Auto) Urine Creatinine Urine Total Protein Complement C3 Coronavirus (PCR) Hepatitis C Antibody Crossmatch 05/15/21 05/15/21 05/15/21 07:26 07:26 14:35 WBC 13.8 H RBC 3.32 L Hgb 10.0 L Hct 31.2 L MCV MCHC RDW 16.0 H Lymph % (Auto) [place] % (Auto) Lymph # (Auto) [place] # (Auto) Seg Neutrophils % Seg Neuts % (Manual) Lymphocytes % (Manual) Monocytes % (Manual) Seg Neutrophils # Seg Neutrophils # Man Lymphocytes # (Manual) Monocytes # (Manual) Haptoglobin PT APTT D-Dimer Heparin Anti-Xa Level ABG pH ABG pO2 ABG HCO3 ABG O2 Saturation ABG Base Excess ABG Hemoglobin Oxyhemoglobin Sodium 149 H D Potassium 3.5 L Chloride 113.2 H Carbon Dioxide BUN 29 H Creatinine 1.8 H Glucose 113 H POC Glucose 143 H Calcium Phosphorus Magnesium Iron TIBC Ferritin Total Bilirubin AST ALT Lactate Dehydrogenase Total Creatine Kinase Troponin T C-Reactive Protein Albumin Urine WBC (Auto) Urine Creatinine Urine Total Protein Complement C3 Coronavirus (PCR) Hepatitis C Antibody Crossmatch 05/16/21 05/16/21 05/16/21 06:12 08:43 10:05 WBC RBC Hgb Hct MCV MCHC RDW Lymph % (Auto) [place] % (Auto) Lymph # (Auto) [place] # (Auto) Seg Neutrophils % Seg Neuts % (Manual) Lymphocytes % (Manual) Monocytes % (Manual) Seg Neutrophils # Seg Neutrophils # Man Lymphocytes # (Manual) Monocytes # (Manual) Haptoglobin PT APTT D-Dimer Heparin Anti-Xa Level 0.21 L ABG pH ABG pO2 240.8 H ABG HCO3 ABG O2 Saturation 99.4 H ABG Base Excess -2.6 L ABG Hemoglobin 10.7 L Oxyhemoglobin Sodium Potassium Chloride Carbon Dioxide BUN Creatinine Glucose POC Glucose 34 L Calcium Phosphorus Magnesium Iron TIBC Ferritin Total Bilirubin AST ALT Lactate Dehydrogenase Total Creatine Kinase Troponin T C-Reactive Protein Albumin Urine WBC (Auto) Urine Creatinine Urine Total Protein Complement C3 Coronavirus (PCR) Hepatitis C Antibody Crossmatch 05/16/21 05/16/21 05/16/21 10:21 10:21 13:14 WBC 27.6 H RBC Hgb 11.4 L Hct MCV 99 H MCHC 30 L RDW 18.1 H Lymph % (Auto) [place] % (Auto) Lymph # (Auto) [place] # (Auto) Seg Neutrophils % Seg Neuts % (Manual) 83.0 H Lymphocytes % (Manual) 4.0 L Monocytes % (Manual) 9.0 H Seg Neutrophils # Seg Neutrophils # Man 22.9 H Lymphocytes # (Manual) 1.1 L Monocytes # (Manual) 2.5 H Haptoglobin PT APTT D-Dimer Heparin Anti-Xa Level ABG pH ABG pO2 ABG HCO3 ABG O2 Saturation ABG Base Excess ABG Hemoglobin Oxyhemoglobin Sodium Potassium Chloride 108.8 H Carbon Dioxide 17 L BUN 26 H Creatinine 1.9 H Glucose 141 H POC Glucose Calcium Phosphorus Magnesium Iron TIBC Ferritin Total Bilirubin AST ALT Lactate Dehydrogenase Total Creatine Kinase Troponin T 0.503 H* C-Reactive Protein Albumin 3.1 L Urine WBC (Auto) Urine Creatinine Urine Total Protein Complement C3 Coronavirus (PCR) Hepatitis C Antibody Crossmatch 05/16/21 05/17/21 05/17/21 18:40 00:02 04:52 WBC RBC Hgb 8.8 L Hct 28.5 L D MCV MCHC RDW Lymph % (Auto) [place] % (Auto) Lymph # (Auto) [place] # (Auto) Seg Neutrophils % Seg Neuts % (Manual) Lymphocytes % (Manual) Monocytes % (Manual) Seg Neutrophils # Seg Neutrophils # Man Lymphocytes # (Manual) Monocytes # (Manual) Haptoglobin PT APTT D-Dimer Heparin Anti-Xa Level ABG pH ABG pO2 ABG HCO3 ABG O2 Saturation ABG Base Excess ABG Hemoglobin Oxyhemoglobin Sodium Potassium Chloride Carbon Dioxide BUN Creatinine Glucose POC Glucose 114 H Calcium Phosphorus Magnesium Iron TIBC Ferritin Total Bilirubin AST ALT Lactate Dehydrogenase Total Creatine Kinase Troponin T 0.400 H* D C-Reactive Protein Albumin Urine WBC (Auto) Urine Creatinine Urine Total Protein Complement C3 Coronavirus (PCR) Hepatitis C Antibody Crossmatch 05/17/21 05/17/21 05/17/21 04:52 05:15 06:50 WBC RBC Hgb Hct MCV MCHC RDW Lymph % (Auto) [place] % (Auto) Lymph # (Auto) [place] # (Auto) Seg Neutrophils % Seg Neuts % (Manual) Lymphocytes % (Manual) Monocytes % (Manual) Seg Neutrophils # Seg Neutrophils # Man Lymphocytes # (Manual) Monocytes # (Manual) Haptoglobin PT APTT D-Dimer Heparin Anti-Xa Level ABG pH ABG pO2 193.7 H ABG HCO3 27.7 H ABG O2 Saturation 99.2 H ABG Base Excess 3.4 H ABG Hemoglobin 9.2 L Oxyhemoglobin Sodium 146 H Potassium Chloride 110.3 H Carbon Dioxide BUN 33 H Creatinine 2.3 H Glucose 120 H POC Glucose 109 H Calcium Phosphorus Magnesium Iron TIBC Ferritin Total Bilirubin AST ALT Lactate Dehydrogenase Total Creatine Kinase Troponin T C-Reactive Protein Albumin Urine WBC (Auto) Urine Creatinine Urine Total Protein Complement C3 Coronavirus (PCR) Hepatitis C Antibody Crossmatch 05/17/21 05/17/21 05/17/21 10:30 11:33 15:35 WBC RBC Hgb Hct MCV MCHC RDW Lymph % (Auto) [place] % (Auto) Lymph # (Auto) [place] # (Auto) Seg Neutrophils % Seg Neuts % (Manual) Lymphocytes % (Manual) Monocytes % (Manual) Seg Neutrophils # Seg Neutrophils # Man Lymphocytes # (Manual) Monocytes # (Manual) Haptoglobin PT APTT D-Dimer Heparin Anti-Xa Level ABG pH 7.457 H ABG pO2 162.5 H 103.7 H ABG HCO3 27.7 H 27.5 H ABG O2 Saturation ABG Base Excess 3.6 H ABG Hemoglobin 10.1 L 11.5 L Oxyhemoglobin Sodium Potassium Chloride Carbon Dioxide BUN Creatinine Glucose POC Glucose 122 H Calcium Phosphorus Magnesium Iron TIBC Ferritin Total Bilirubin AST ALT Lactate Dehydrogenase Total Creatine Kinase Troponin T C-Reactive Protein Albumin Urine WBC (Auto) Urine Creatinine Urine Total Protein Complement C3 Coronavirus (PCR) Hepatitis C Antibody Crossmatch 05/17/21 05/17/21 05/17/21 16:21 18:18 23:29 WBC RBC Hgb 9.6 L Hct 30.3 L MCV MCHC RDW Lymph % (Auto) [place] % (Auto) Lymph # (Auto) [place] # (Auto) Seg Neutrophils % Seg Neuts % (Manual) Lymphocytes % (Manual) Monocytes % (Manual) Seg Neutrophils # Seg Neutrophils # Man Lymphocytes # (Manual) Monocytes # (Manual) Haptoglobin PT APTT D-Dimer Heparin Anti-Xa Level ABG pH ABG pO2 ABG HCO3 ABG O2 Saturation ABG Base Excess ABG Hemoglobin Oxyhemoglobin Sodium Potassium Chloride Carbon Dioxide BUN Creatinine Glucose POC Glucose 133 H 111 H Calcium Phosphorus Magnesium Iron TIBC Ferritin Total Bilirubin AST ALT Lactate Dehydrogenase Total Creatine Kinase Troponin T C-Reactive Protein Albumin Urine WBC (Auto) Urine Creatinine Urine Total Protein Complement C3 Coronavirus (PCR) Hepatitis C Antibody Crossmatch 05/18/21 05/18/21 05/18/21 04:15 04:15 05:01 WBC 16.8 H RBC 3.03 L Hgb 8.9 L Hct 28.7 L MCV 95 H MCHC 31 L RDW 16.4 H Lymph % (Auto) [place] % (Auto) Lymph # (Auto) [place] # (Auto) Seg Neutrophils % Seg Neuts % (Manual) Lymphocytes % (Manual) Monocytes % (Manual) Seg Neutrophils # Seg Neutrophils # Man Lymphocytes # (Manual) Monocytes # (Manual) Haptoglobin PT APTT D-Dimer Heparin Anti-Xa Level ABG pH ABG pO2 ABG HCO3 ABG O2 Saturation ABG Base Excess ABG Hemoglobin Oxyhemoglobin Sodium Potassium Chloride Carbon Dioxide BUN 40 H Creatinine 2.1 H Glucose 115 H POC Glucose 113 H Calcium Phosphorus Magnesium Iron TIBC Ferritin Total Bilirubin AST ALT Lactate Dehydrogenase Total Creatine Kinase Troponin T C-Reactive Protein Albumin Urine WBC (Auto) Urine Creatinine Urine Total Protein Complement C3 Coronavirus (PCR) Hepatitis C Antibody Crossmatch 05/18/21 05/18/21 05/19/21 11:18 12:50 05:23 WBC 18.5 H RBC 3.31 L Hgb 9.9 L Hct 31.1 L MCV MCHC RDW 16.9 H Lymph % (Auto) [place] % (Auto) Lymph # (Auto) [place] # (Auto) Seg Neutrophils % Seg Neuts % (Manual) Lymphocytes % (Manual) Monocytes % (Manual) Seg Neutrophils # Seg Neutrophils # Man Lymphocytes # (Manual) Monocytes # (Manual) Haptoglobin PT APTT D-Dimer Heparin Anti-Xa Level ABG pH ABG pO2 79.6 L ABG HCO3 28.0 H ABG O2 Saturation ABG Base Excess 3.3 H ABG Hemoglobin 6.2 L Oxyhemoglobin Sodium Potassium Chloride Carbon Dioxide BUN Creatinine Glucose POC Glucose 129 H Calcium Phosphorus Magnesium Iron TIBC Ferritin Total Bilirubin AST ALT Lactate Dehydrogenase Total Creatine Kinase Troponin T C-Reactive Protein Albumin Urine WBC (Auto) Urine Creatinine Urine Total Protein Complement C3 Coronavirus (PCR) Hepatitis C Antibody Crossmatch 05/19/21 05/19/21 05/19/21 05:23 05:23 11:24 WBC RBC Hgb Hct MCV MCHC RDW Lymph % (Auto) [place] % (Auto) Lymph # (Auto) [place] # (Auto) Seg Neutrophils % Seg Neuts % (Manual) Lymphocytes % (Manual) Monocytes % (Manual) Seg Neutrophils # Seg Neutrophils # Man Lymphocytes # (Manual) Monocytes # (Manual) Haptoglobin PT APTT D-Dimer Heparin Anti-Xa Level ABG pH ABG pO2 ABG HCO3 ABG O2 Saturation ABG Base Excess ABG Hemoglobin Oxyhemoglobin Sodium Potassium Chloride Carbon Dioxide BUN 35 H 34 H Creatinine 2.0 H 2.1 H Glucose POC Glucose 111 H Calcium Phosphorus Magnesium Iron TIBC Ferritin Total Bilirubin AST ALT Lactate Dehydrogenase Total Creatine Kinase Troponin T C-Reactive Protein Albumin Urine WBC (Auto) Urine Creatinine Urine Total Protein Complement C3 Coronavirus (PCR) Hepatitis C Antibody Crossmatch 05/19/21 05/19/21 05/19/21 16:33 19:36 23:47 WBC RBC Hgb Hct MCV MCHC RDW Lymph % (Auto) [place] % (Auto) Lymph # (Auto) [place] # (Auto) Seg Neutrophils % Seg Neuts % (Manual) Lymphocytes % (Manual) Monocytes % (Manual) Seg Neutrophils # Seg Neutrophils # Man Lymphocytes # (Manual) Monocytes # (Manual) Haptoglobin PT APTT 72.5 H* D-Dimer Heparin Anti-Xa Level ABG pH ABG pO2 ABG HCO3 ABG O2 Saturation ABG Base Excess ABG Hemoglobin Oxyhemoglobin Sodium Potassium Chloride Carbon Dioxide BUN Creatinine Glucose POC Glucose 131 H 122 H Calcium Phosphorus Magnesium Iron TIBC Ferritin Total Bilirubin AST ALT Lactate Dehydrogenase Total Creatine Kinase Troponin T C-Reactive Protein Albumin Urine WBC (Auto) Urine Creatinine Urine Total Protein Complement C3 Coronavirus (PCR) Hepatitis C Antibody Crossmatch 05/20/21 05/20/21 05/20/21 05:14 05:14 06:12 WBC 19.7 H RBC 3.19 L Hgb 9.5 L Hct 29.9 L MCV MCHC RDW 17.3 H Lymph % (Auto) [place] % (Auto) Lymph # (Auto) [place] # (Auto) Seg Neutrophils % Seg Neuts % (Manual) Lymphocytes % (Manual) Monocytes % (Manual) Seg Neutrophils # Seg Neutrophils # Man Lymphocytes # (Manual) Monocytes # (Manual) Haptoglobin PT APTT D-Dimer Heparin Anti-Xa Level ABG pH ABG pO2 ABG HCO3 ABG O2 Saturation ABG Base Excess ABG Hemoglobin Oxyhemoglobin Sodium Potassium Chloride Carbon Dioxide BUN 31 H Creatinine 2.1 H Glucose 130 H POC Glucose 120 H Calcium Phosphorus Magnesium Iron TIBC Ferritin Total Bilirubin AST ALT Lactate Dehydrogenase Total Creatine Kinase Troponin T C-Reactive Protein Albumin Urine WBC (Auto) Urine Creatinine Urine Total Protein Complement C3 Coronavirus (PCR) Hepatitis C Antibody Crossmatch 05/20/21 05/20/21 05/20/21 11:10 18:12 23:55 WBC RBC Hgb Hct MCV MCHC RDW Lymph % (Auto) [place] % (Auto) Lymph # (Auto) [place] # (Auto) Seg Neutrophils % Seg Neuts % (Manual) Lymphocytes % (Manual) Monocytes % (Manual) Seg Neutrophils # Seg Neutrophils # Man Lymphocytes # (Manual) Monocytes # (Manual) Haptoglobin PT APTT D-Dimer Heparin Anti-Xa Level ABG pH ABG pO2 ABG HCO3 ABG O2 Saturation ABG Base Excess ABG Hemoglobin Oxyhemoglobin Sodium Potassium Chloride Carbon Dioxide BUN Creatinine Glucose POC Glucose 152 H 137 H 146 H Calcium Phosphorus Magnesium Iron TIBC Ferritin Total Bilirubin AST ALT Lactate Dehydrogenase Total Creatine Kinase Troponin T C-Reactive Protein Albumin Urine WBC (Auto) Urine Creatinine Urine Total Protein Complement C3 Coronavirus (PCR) Hepatitis C Antibody Crossmatch 05/21/21 05/21/21 05/21/21 03:12 03:12 05:53 WBC 26.2 H RBC 2.58 L Hgb 7.7 L Hct 24.2 L MCV MCHC RDW 17.8 H Lymph % (Auto) [place] % (Auto) Lymph # (Auto) [place] # (Auto) Seg Neutrophils % Seg Neuts % (Manual) Lymphocytes % (Manual) Monocytes % (Manual) Seg Neutrophils # Seg Neutrophils # Man Lymphocytes # (Manual) Monocytes # (Manual) Haptoglobin PT APTT D-Dimer Heparin Anti-Xa Level ABG pH ABG pO2 ABG HCO3 ABG O2 Saturation ABG Base Excess ABG Hemoglobin Oxyhemoglobin Sodium 133 L Potassium 5.7 H D Chloride Carbon Dioxide 21 L BUN 49 H Creatinine 2.6 H Glucose 160 H POC Glucose 118 H Calcium Phosphorus Magnesium Iron TIBC Ferritin Total Bilirubin AST ALT Lactate Dehydrogenase Total Creatine Kinase Troponin T C-Reactive Protein Albumin Urine WBC (Auto) Urine Creatinine Urine Total Protein Complement C3 Coronavirus (PCR) Hepatitis C Antibody Crossmatch 05/21/21 05/22/21 05/22/21 18:00 00:13 05:05 WBC RBC Hgb Hct MCV MCHC RDW Lymph % (Auto) [place] % (Auto) Lymph # (Auto) [place] # (Auto) Seg Neutrophils % Seg Neuts % (Manual) Lymphocytes % (Manual) Monocytes % (Manual) Seg Neutrophils # Seg Neutrophils # Man Lymphocytes # (Manual) Monocytes # (Manual) Haptoglobin PT APTT D-Dimer Heparin Anti-Xa Level ABG pH 7.500 H ABG pO2 56.6 L ABG HCO3 ABG O2 Saturation ABG Base Excess ABG Hemoglobin 6.7 L Oxyhemoglobin 94.8 L Sodium 136 L Potassium 5.2 H Chloride Carbon Dioxide BUN 59 H Creatinine 2.6 H Glucose 138 H POC Glucose 109 H Calcium Phosphorus Magnesium Iron TIBC Ferritin Total Bilirubin AST ALT Lactate Dehydrogenase Total Creatine Kinase Troponin T C-Reactive Protein Albumin Urine WBC (Auto) Urine Creatinine Urine Total Protein Complement C3 Coronavirus (PCR) Hepatitis C Antibody Crossmatch 05/22/21 05/22/21 05/22/21 06:07 11:49 16:33 WBC RBC Hgb Hct MCV MCHC RDW Lymph % (Auto) [place] % (Auto) Lymph # (Auto) [place] # (Auto) Seg Neutrophils % Seg Neuts % (Manual) Lymphocytes % (Manual) Monocytes % (Manual) Seg Neutrophils # Seg Neutrophils # Man Lymphocytes # (Manual) Monocytes # (Manual) Haptoglobin PT APTT D-Dimer Heparin Anti-Xa Level ABG pH ABG pO2 ABG HCO3 ABG O2 Saturation ABG Base Excess ABG Hemoglobin Oxyhemoglobin Sodium Potassium Chloride Carbon Dioxide BUN Creatinine Glucose POC Glucose 110 H 117 H 119 H Calcium Phosphorus Magnesium Iron TIBC Ferritin Total Bilirubin AST ALT Lactate Dehydrogenase Total Creatine Kinase Troponin T C-Reactive Protein Albumin Urine WBC (Auto) Urine Creatinine Urine Total Protein Complement C3 Coronavirus (PCR) Hepatitis C Antibody Crossmatch 05/23/21 05/23/21 05/23/21 04:48 04:48 07:12 WBC 21.1 H RBC 2.03 L Hgb 6.2 L Hct 19.4 L* MCV 96 H MCHC RDW 17.5 H Lymph % (Auto) [place] % (Auto) Lymph # (Auto) [place] # (Auto) Seg Neutrophils % Seg Neuts % (Manual) Lymphocytes % (Manual) Monocytes % (Manual) Seg Neutrophils # Seg Neutrophils # Man Lymphocytes # (Manual) Monocytes # (Manual) Haptoglobin PT APTT D-Dimer Heparin Anti-Xa Level ABG pH ABG pO2 ABG HCO3 ABG O2 Saturation ABG Base Excess ABG Hemoglobin Oxyhemoglobin Sodium Potassium Chloride Carbon Dioxide BUN 62 H Creatinine 2.8 H Glucose 110 H POC Glucose Calcium Phosphorus Magnesium Iron TIBC Ferritin Total Bilirubin AST ALT Lactate Dehydrogenase Total Creatine Kinase Troponin T C-Reactive Protein Albumin Urine WBC (Auto) Urine Creatinine Urine Total Protein Complement C3 Coronavirus (PCR) Hepatitis C Antibody Crossmatch See Detail 05/23/21 05/23/21 05/23/21 11:19 14:15 16:12 WBC RBC Hgb Hct MCV MCHC RDW Lymph % (Auto) [place] % (Auto) Lymph # (Auto) [place] # (Auto) Seg Neutrophils % Seg Neuts % (Manual) Lymphocytes % (Manual) Monocytes % (Manual) Seg Neutrophils # Seg Neutrophils # Man Lymphocytes # (Manual) Monocytes # (Manual) Haptoglobin PT APTT D-Dimer Heparin Anti-Xa Level ABG pH ABG pO2 294.7 H ABG HCO3 ABG O2 Saturation 99.5 H ABG Base Excess ABG Hemoglobin 6.5 L Oxyhemoglobin Sodium Potassium Chloride Carbon Dioxide BUN Creatinine Glucose POC Glucose 127 H 120 H Calcium Phosphorus Magnesium Iron TIBC Ferritin Total Bilirubin AST ALT Lactate Dehydrogenase Total Creatine Kinase Troponin T C-Reactive Protein Albumin Urine WBC (Auto) Urine Creatinine Urine Total Protein Complement C3 Coronavirus (PCR) Hepatitis C Antibody Crossmatch 05/23/21 05/23/21 05/23/21 16:30 16:30 18:54 WBC RBC Hgb Hct MCV MCHC RDW Lymph % (Auto) [place] % (Auto) Lymph # (Auto) [place] # (Auto) Seg Neutrophils % Seg Neuts % (Manual) Lymphocytes % (Manual) Monocytes % (Manual) Seg Neutrophils # Seg Neutrophils # Man Lymphocytes # (Manual) Monocytes # (Manual) Haptoglobin 254 H PT APTT D-Dimer Heparin Anti-Xa Level ABG pH ABG pO2 ABG HCO3 ABG O2 Saturation ABG Base Excess ABG Hemoglobin Oxyhemoglobin Sodium Potassium Chloride Carbon Dioxide BUN Creatinine Glucose POC Glucose Calcium Phosphorus Magnesium Iron TIBC Ferritin Total Bilirubin AST ALT Lactate Dehydrogenase Total Creatine Kinase Troponin T C-Reactive Protein Albumin Urine WBC (Auto) 12.0 H Urine Creatinine 100.1 H Urine Total Protein Complement C3 Coronavirus (PCR) Hepatitis C Antibody Crossmatch 05/23/21 05/23/21 05/24/21 18:54 Unknown 00:11 WBC 21.7 H RBC 2.40 L Hgb 7.1 L Hct 22.9 L MCV 96 H MCHC 31 L RDW 16.8 H Lymph % (Auto) [place] % (Auto) Lymph # (Auto) [place] # (Auto) Seg Neutrophils % Seg Neuts % (Manual) Lymphocytes % (Manual) Monocytes % (Manual) Seg Neutrophils # Seg Neutrophils # Man Lymphocytes # (Manual) Monocytes # (Manual) Haptoglobin PT APTT D-Dimer Heparin Anti-Xa Level ABG pH ABG pO2 ABG HCO3 ABG O2 Saturation ABG Base Excess ABG Hemoglobin Oxyhemoglobin Sodium Potassium Chloride Carbon Dioxide BUN Creatinine Glucose POC Glucose 110 H Calcium Phosphorus Magnesium Iron 10 L TIBC 151 L Ferritin Total Bilirubin AST ALT Lactate Dehydrogenase 311 H Total Creatine Kinase Troponin T C-Reactive Protein Albumin Urine WBC (Auto) Urine Creatinine Urine Total Protein Complement C3 Coronavirus (PCR) Hepatitis C Antibody Crossmatch 05/24/21 05/24/21 05/24/21 04:11 04:11 05:10 WBC 16.7 H RBC 2.19 L Hgb 6.4 L Hct 20.5 L MCV MCHC 31 L RDW 17.0 H Lymph % (Auto) [place] % (Auto) Lymph # (Auto) [place] # (Auto) Seg Neutrophils % Seg Neuts % (Manual) Lymphocytes % (Manual) Monocytes % (Manual) Seg Neutrophils # Seg Neutrophils # Man Lymphocytes # (Manual) Monocytes # (Manual) Haptoglobin PT APTT D-Dimer Heparin Anti-Xa Level ABG pH ABG pO2 ABG HCO3 ABG O2 Saturation ABG Base Excess ABG Hemoglobin Oxyhemoglobin Sodium Potassium Chloride Carbon Dioxide BUN 78 H Creatinine 2.8 H Glucose 119 H POC Glucose 108 H Calcium Phosphorus 5.30 H Magnesium 2.60 H Iron TIBC Ferritin Total Bilirubin AST 152 H ALT 125 H Lactate Dehydrogenase Total Creatine Kinase Troponin T C-Reactive Protein Albumin 2.5 L Urine WBC (Auto) Urine Creatinine Urine Total Protein Complement C3 Coronavirus (PCR) Hepatitis C Antibody Crossmatch 05/24/21 05/25/2122 09:55 04:25 04:25 WBC 13.8 H RBC 2.78 L Hgb 8.3 L Hct 25.6 L MCV MCHC RDW 16.2 H Lymph % (Auto) [place] % (Auto) Lymph # (Auto) [place] # (Auto) Seg Neutrophils % Seg Neuts % (Manual) Lymphocytes % (Manual) Monocytes % (Manual) Seg Neutrophils # Seg Neutrophils # Man Lymphocytes # (Manual) Monocytes # (Manual) Haptoglobin PT APTT D-Dimer Heparin Anti-Xa Level ABG pH ABG pO2 141.9 H ABG HCO3 ABG O2 Saturation ABG Base Excess ABG Hemoglobin 6.5 L Oxyhemoglobin Sodium Potassium Chloride Carbon Dioxide BUN 76 H Creatinine 2.6 H Glucose 110 H POC Glucose Calcium 8.1 L Phosphorus Magnesium Iron TIBC Ferritin Total Bilirubin AST ALT Lactate Dehydrogenase Total Creatine Kinase Troponin T C-Reactive Protein Albumin Urine WBC (Auto) Urine Creatinine Urine Total Protein Complement C3 Coronavirus (PCR) Hepatitis C Antibody Crossmatch 05/25/21 05/25/21 05/25/21 05:19 09:40 17:11 WBC RBC Hgb Hct MCV MCHC RDW Lymph % (Auto) [place] % (Auto) Lymph # (Auto) [place] # (Auto) Seg Neutrophils % Seg Neuts % (Manual) Lymphocytes % (Manual) Monocytes % (Manual) Seg Neutrophils # Seg Neutrophils # Man Lymphocytes # (Manual) Monocytes # (Manual) Haptoglobin PT APTT D-Dimer Heparin Anti-Xa Level ABG pH ABG pO2 150.9 H ABG HCO3 ABG O2 Saturation ABG Base Excess ABG Hemoglobin 7.0 L Oxyhemoglobin Sodium Potassium Chloride Carbon Dioxide BUN Creatinine Glucose POC Glucose 123 H 108 H Calcium Phosphorus Magnesium Iron TIBC Ferritin Total Bilirubin AST ALT Lactate Dehydrogenase Total Creatine Kinase Troponin T C-Reactive Protein Albumin Urine WBC (Auto) Urine Creatinine Urine Total Protein Complement C3 Coronavirus (PCR) Hepatitis C Antibody Crossmatch 05/25/21 05/26/21 05/26/21 23:37 05:02 07:09 WBC RBC Hgb Hct MCV MCHC RDW Lymph % (Auto) [place] % (Auto) Lymph # (Auto) [place] # (Auto) Seg Neutrophils % Seg Neuts % (Manual) Lymphocytes % (Manual) Monocytes % (Manual) Seg Neutrophils # Seg Neutrophils # Man Lymphocytes # (Manual) Monocytes # (Manual) Haptoglobin PT APTT D-Dimer Heparin Anti-Xa Level ABG pH ABG pO2 ABG HCO3 ABG O2 Saturation ABG Base Excess ABG Hemoglobin Oxyhemoglobin Sodium Potassium Chloride Carbon Dioxide BUN 62 H Creatinine 2.1 H Glucose 112 H POC Glucose 117 H 112 H Calcium 8.2 L Phosphorus Magnesium Iron TIBC Ferritin Total Bilirubin AST ALT Lactate Dehydrogenase Total Creatine Kinase Troponin T C-Reactive Protein Albumin Urine WBC (Auto) Urine Creatinine Urine Total Protein Complement C3 Coronavirus (PCR) Hepatitis C Antibody Crossmatch 05/26/21 05/26/21 05/26/21 07:09 09:10 09:50 WBC 15.8 H RBC 3.21 L Hgb 9.2 L Hct 29.6 L MCV MCHC 31 L RDW 16.6 H Lymph % (Auto) [place] % (Auto) Lymph # (Auto) [place] # (Auto) Seg Neutrophils % Seg Neuts % (Manual) Lymphocytes % (Manual) Monocytes % (Manual) Seg Neutrophils # Seg Neutrophils # Man Lymphocytes # (Manual) Monocytes # (Manual) Haptoglobin PT APTT D-Dimer Heparin Anti-Xa Level ABG pH ABG pO2 135.5 H ABG HCO3 ABG O2 Saturation ABG Base Excess ABG Hemoglobin 9.6 L Oxyhemoglobin Sodium Potassium Chloride Carbon Dioxide BUN Creatinine Glucose POC Glucose Calcium Phosphorus Magnesium Iron TIBC Ferritin Total Bilirubin AST ALT Lactate Dehydrogenase Total Creatine Kinase Troponin T C-Reactive Protein Albumin Urine WBC (Auto) 38.0 H Urine Creatinine Urine Total Protein Complement C3 Coronavirus (PCR) Hepatitis C Antibody Crossmatch 05/26/21 05/26/21 05/27/21 11:20 18:24 00:24 WBC RBC Hgb Hct MCV MCHC RDW Lymph % (Auto) [place] % (Auto) Lymph # (Auto) [place] # (Auto) Seg Neutrophils % Seg Neuts % (Manual) Lymphocytes % (Manual) Monocytes % (Manual) Seg Neutrophils # Seg Neutrophils # Man Lymphocytes # (Manual) Monocytes # (Manual) Haptoglobin PT APTT D-Dimer Heparin Anti-Xa Level ABG pH ABG pO2 ABG HCO3 ABG O2 Saturation ABG Base Excess ABG Hemoglobin Oxyhemoglobin Sodium Potassium Chloride Carbon Dioxide BUN Creatinine Glucose POC Glucose 109 H 116 H 115 H Calcium Phosphorus Magnesium Iron TIBC Ferritin Total Bilirubin AST ALT Lactate Dehydrogenase Total Creatine Kinase Troponin T C-Reactive Protein Albumin Urine WBC (Auto) Urine Creatinine Urine Total Protein Complement C3 Coronavirus (PCR) Hepatitis C Antibody Crossmatch 05/27/21 05/27/21 05/27/21 05:12 07:47 07:47 WBC 15.5 H RBC 2.86 L Hgb 8.8 L Hct 26.1 L MCV MCHC RDW 16.1 H Lymph % (Auto) [place] % (Auto) Lymph # (Auto) [place] # (Auto) Seg Neutrophils % Seg Neuts % (Manual) Lymphocytes % (Manual) Monocytes % (Manual) Seg Neutrophils # Seg Neutrophils # Man Lymphocytes # (Manual) Monocytes # (Manual) Haptoglobin PT APTT D-Dimer Heparin Anti-Xa Level ABG pH ABG pO2 ABG HCO3 ABG O2 Saturation ABG Base Excess ABG Hemoglobin Oxyhemoglobin Sodium Potassium Chloride 107.3 H Carbon Dioxide BUN 56 H Creatinine 1.8 H Glucose 108 H POC Glucose 108 H Calcium 8.1 L Phosphorus Magnesium Iron TIBC Ferritin Total Bilirubin AST ALT Lactate Dehydrogenase Total Creatine Kinase Troponin T C-Reactive Protein Albumin Urine WBC (Auto) Urine Creatinine Urine Total Protein Complement C3 Coronavirus (PCR) Hepatitis C Antibody Crossmatch 05/27/21 05/27/21 05/28/21 09:20 18:01 00:09 WBC RBC Hgb Hct MCV MCHC RDW Lymph % (Auto) [place] % (Auto) Lymph # (Auto) [place] # (Auto) Seg Neutrophils % Seg Neuts % (Manual) Lymphocytes % (Manual) Monocytes % (Manual) Seg Neutrophils # Seg Neutrophils # Man Lymphocytes # (Manual) Monocytes # (Manual) Haptoglobin PT APTT D-Dimer Heparin Anti-Xa Level ABG pH ABG pO2 115.2 H ABG HCO3 ABG O2 Saturation ABG Base Excess ABG Hemoglobin 9.2 L Oxyhemoglobin Sodium Potassium Chloride Carbon Dioxide BUN Creatinine Glucose POC Glucose 109 H 114 H Calcium Phosphorus Magnesium Iron TIBC Ferritin Total Bilirubin AST ALT Lactate Dehydrogenase Total Creatine Kinase Troponin T C-Reactive Protein Albumin Urine WBC (Auto) Urine Creatinine Urine Total Protein Complement C3 Coronavirus (PCR) Hepatitis C Antibody Crossmatch 05/28/21 05/28/21 05/28/21 04:04 04:04 04:04 WBC 14.1 H RBC 2.87 L Hgb 8.6 L Hct 26.5 L MCV MCHC RDW 15.9 H Lymph % (Auto) [place] % (Auto) Lymph # (Auto) [place] # (Auto) Seg Neutrophils % Seg Neuts % (Manual) 93.0 H Lymphocytes % (Manual) 2.0 L Monocytes % (Manual) Seg Neutrophils # Seg Neutrophils # Man 13.1 H Lymphocytes # (Manual) 0.3 L Monocytes # (Manual) Haptoglobin PT APTT D-Dimer Heparin Anti-Xa Level ABG pH ABG pO2 ABG HCO3 ABG O2 Saturation ABG Base Excess ABG Hemoglobin Oxyhemoglobin Sodium Potassium Chloride Carbon Dioxide BUN 54 H Creatinine 1.7 H Glucose 116 H POC Glucose Calcium 7.7 L Phosphorus Magnesium Iron TIBC Ferritin Total Bilirubin AST ALT Lactate Dehydrogenase Total Creatine Kinase Troponin T C-Reactive Protein 13.20 H Albumin Urine WBC (Auto) Urine Creatinine Urine Total Protein Complement C3 Coronavirus (PCR) Hepatitis C Antibody Crossmatch 05/28/21 05/28/21 05/28/21 05:32 12:06 17:30 WBC RBC Hgb Hct MCV MCHC RDW Lymph % (Auto) [place] % (Auto) Lymph # (Auto) [place] # (Auto) Seg Neutrophils % Seg Neuts % (Manual) Lymphocytes % (Manual) Monocytes % (Manual) Seg Neutrophils # Seg Neutrophils # Man Lymphocytes # (Manual) Monocytes # (Manual) Haptoglobin PT APTT D-Dimer Heparin Anti-Xa Level ABG pH ABG pO2 ABG HCO3 ABG O2 Saturation ABG Base Excess ABG Hemoglobin Oxyhemoglobin Sodium Potassium Chloride Carbon Dioxide BUN Creatinine Glucose POC Glucose 119 H 112 H 114 H Calcium Phosphorus Magnesium Iron TIBC Ferritin Total Bilirubin AST ALT Lactate Dehydrogenase Total Creatine Kinase Troponin T C-Reactive Protein Albumin Urine WBC (Auto) Urine Creatinine Urine Total Protein Complement C3 Coronavirus (PCR) Hepatitis C Antibody Crossmatch 05/28/21 05/29/21 05/29/21 23:46 05:16 11:16 WBC 12.2 H RBC 2.94 L Hgb 8.7 L Hct 27.2 L MCV MCHC RDW 15.8 H Lymph % (Auto) [place] % (Auto) Lymph # (Auto) [place] # (Auto) Seg Neutrophils % Seg Neuts % (Manual) Lymphocytes % (Manual) Monocytes % (Manual) Seg Neutrophils # Seg Neutrophils # Man Lymphocytes # (Manual) Monocytes # (Manual) Haptoglobin PT APTT D-Dimer Heparin Anti-Xa Level ABG pH ABG pO2 ABG HCO3 ABG O2 Saturation ABG Base Excess ABG Hemoglobin Oxyhemoglobin Sodium Potassium Chloride Carbon Dioxide BUN Creatinine Glucose POC Glucose 108 H 113 H Calcium Phosphorus Magnesium Iron TIBC Ferritin Total Bilirubin AST ALT Lactate Dehydrogenase Total Creatine Kinase Troponin T C-Reactive Protein Albumin Urine WBC (Auto) Urine Creatinine Urine Total Protein Complement C3 Coronavirus (PCR) Hepatitis C Antibody Crossmatch 05/29/21 05/29/21 05/29/21 11:16 17:25 23:26 WBC RBC Hgb Hct MCV MCHC RDW Lymph % (Auto) [place] % (Auto) Lymph # (Auto) [place] # (Auto) Seg Neutrophils % Seg Neuts % (Manual) Lymphocytes % (Manual) Monocytes % (Manual) Seg Neutrophils # Seg Neutrophils # Man Lymphocytes # (Manual) Monocytes # (Manual) Haptoglobin PT APTT D-Dimer Heparin Anti-Xa Level ABG pH ABG pO2 ABG HCO3 ABG O2 Saturation ABG Base Excess ABG Hemoglobin Oxyhemoglobin Sodium Potassium Chloride Carbon Dioxide BUN 50 H Creatinine 1.5 H Glucose 117 H POC Glucose 115 H 110 H Calcium 8.0 L Phosphorus Magnesium Iron TIBC Ferritin Total Bilirubin AST ALT Lactate Dehydrogenase Total Creatine Kinase Troponin T C-Reactive Protein Albumin Urine WBC (Auto) Urine Creatinine Urine Total Protein Complement C3 Coronavirus (PCR) Hepatitis C Antibody Crossmatch 05/30/21 05/30/21 05/30/21 05:07 05:11 11:30 WBC RBC Hgb Hct MCV MCHC RDW Lymph % (Auto) [place] % (Auto) Lymph # (Auto) [place] # (Auto) Seg Neutrophils % Seg Neuts % (Manual) Lymphocytes % (Manual) Monocytes % (Manual) Seg Neutrophils # Seg Neutrophils # Man Lymphocytes # (Manual) Monocytes # (Manual) Haptoglobin PT APTT D-Dimer Heparin Anti-Xa Level ABG pH ABG pO2 ABG HCO3 ABG O2 Saturation ABG Base Excess ABG Hemoglobin Oxyhemoglobin Sodium Potassium Chloride Carbon Dioxide BUN 55 H Creatinine 1.5 H Glucose 129 H POC Glucose 113 H 110 H Calcium 8.2 L Phosphorus Magnesium Iron TIBC Ferritin Total Bilirubin AST ALT Lactate Dehydrogenase Total Creatine Kinase Troponin T C-Reactive Protein Albumin Urine WBC (Auto) Urine Creatinine Urine Total Protein Complement C3 Coronavirus (PCR) Hepatitis C Antibody Crossmatch 05/30/21 05/31/21 05/31/21 17:53 04:11 04:11 WBC RBC 3.12 L Hgb 9.3 L Hct 28.8 L MCV MCHC RDW 16.1 H Lymph % (Auto) [place] % (Auto) Lymph # (Auto) [place] # (Auto) Seg Neutrophils % Seg Neuts % (Manual) Lymphocytes % (Manual) Monocytes % (Manual) Seg Neutrophils # Seg Neutrophils # Man Lymphocytes # (Manual) Monocytes # (Manual) Haptoglobin PT APTT D-Dimer Heparin Anti-Xa Level ABG pH ABG pO2 ABG HCO3 ABG O2 Saturation ABG Base Excess ABG Hemoglobin Oxyhemoglobin Sodium Potassium Chloride Carbon Dioxide BUN 50 H Creatinine 1.4 H Glucose 117 H POC Glucose 107 H Calcium 8.0 L Phosphorus Magnesium Iron TIBC Ferritin Total Bilirubin AST ALT Lactate Dehydrogenase Total Creatine Kinase Troponin T C-Reactive Protein Albumin Urine WBC (Auto) Urine Creatinine Urine Total Protein Complement C3 Coronavirus (PCR) Hepatitis C Antibody Crossmatch 05/31/21 05/31/21 06/01/21 11:36 18:27 04:56 WBC RBC 3.14 L Hgb 9.1 L Hct 29.0 L MCV MCHC RDW 16.3 H Lymph % (Auto) [place] % (Auto) Lymph # (Auto) [place] # (Auto) Seg Neutrophils % Seg Neuts % (Manual) Lymphocytes % (Manual) Monocytes % (Manual) Seg Neutrophils # Seg Neutrophils # Man Lymphocytes # (Manual) Monocytes # (Manual) Haptoglobin PT APTT D-Dimer Heparin Anti-Xa Level ABG pH ABG pO2 ABG HCO3 ABG O2 Saturation ABG Base Excess ABG Hemoglobin Oxyhemoglobin Sodium Potassium Chloride Carbon Dioxide BUN Creatinine Glucose POC Glucose 109 H 111 H Calcium Phosphorus Magnesium Iron TIBC Ferritin Total Bilirubin AST ALT Lactate Dehydrogenase Total Creatine Kinase Troponin T C-Reactive Protein Albumin Urine WBC (Auto) Urine Creatinine Urine Total Protein Complement C3 Coronavirus (PCR) Hepatitis C Antibody Crossmatch 06/01/21 06/01/21 06/01/21 04:56 06:10 11:04 WBC RBC Hgb Hct MCV MCHC RDW Lymph % (Auto) [place] % (Auto) Lymph # (Auto) [place] # (Auto) Seg Neutrophils % Seg Neuts % (Manual) Lymphocytes % (Manual) Monocytes % (Manual) Seg Neutrophils # Seg Neutrophils # Man Lymphocytes # (Manual) Monocytes # (Manual) Haptoglobin PT APTT D-Dimer Heparin Anti-Xa Level ABG pH ABG pO2 ABG HCO3 ABG O2 Saturation ABG Base Excess ABG Hemoglobin Oxyhemoglobin Sodium Potassium Chloride 108.4 H Carbon Dioxide BUN 49 H Creatinine Glucose 113 H POC Glucose 107 H 122 H Calcium 8.0 L Phosphorus Magnesium Iron TIBC Ferritin Total Bilirubin AST ALT Lactate Dehydrogenase Total Creatine Kinase Troponin T C-Reactive Protein Albumin Urine WBC (Auto) Urine Creatinine Urine Total Protein Complement C3 Coronavirus (PCR) Hepatitis C Antibody Crossmatch 06/01/21 15:50 WBC RBC Hgb Hct MCV MCHC RDW Lymph % (Auto) [place] % (Auto) Lymph # (Auto) [place] # (Auto) Seg Neutrophils % Seg Neuts % (Manual) Lymphocytes % (Manual) Monocytes % (Manual) Seg Neutrophils # Seg Neutrophils # Man Lymphocytes # (Manual) Monocytes # (Manual) Haptoglobin PT APTT D-Dimer Heparin Anti-Xa Level ABG pH ABG pO2 ABG HCO3 ABG O2 Saturation ABG Base Excess ABG Hemoglobin Oxyhemoglobin Sodium Potassium Chloride Carbon Dioxide BUN Creatinine Glucose POC Glucose 111 H Calcium Phosphorus Magnesium Iron TIBC Ferritin Total Bilirubin AST ALT Lactate Dehydrogenase Total Creatine Kinase Troponin T C-Reactive Protein Albumin Urine WBC (Auto) Urine Creatinine Urine Total Protein Complement C3 Coronavirus (PCR) Hepatitis C Antibody Crossmatch Allied health notes reviewed: nursing
[2021-06-01] MEDS: POLYETHYLENE GLYCOL 3350 17 GM POWDER PO SCH (21:11)
[2021-06-02 04:54] LABS: BUN/Creatinine Ratio 38; Blood Urea Nitrogen 46 mg/dL (9-20); Calcium 8.6 mg/dL (8.4-10.2); Hemolysis Index 9
[2021-06-02] MEDS: ACETAMINOPHEN 325 MG TAB PO PRN ×2 (05:21→20:38)
[2021-06-02] MEDS: hydrALAZINE 25 MG TAB PO SCH ×3 (05:21→21:48)
[2021-06-02] MEDS: METOPROLOL TARTRATE 25 MG TAB FEEDTUBE SCH ×3 (08:35→20:39)
[2021-06-02] MEDS: HEPARIN 5,000 UNIT/1 ML VIAL SUB-Q SCH ×2 (10:35→21:48)
[2021-06-02] MEDS: LANSOPRAZOLE 30 MG SOLUTAB FEEDTUBE SCH ×2 (10:36→21:48)
[2021-06-02] MEDS: SENNOSIDES/DOCUSATE SODIUM 8.6/50 MG TAB FEEDTUBE SCH ×2 (10:36→21:48)
--- NOTE | 2021-06-02 12:16 | Progress Note ---
<JANUSZ PETERSEN - Last Filed: 06/02/21 16:55> Assessment and Plan Assessment and plan: This is a homeless 56-year-old male with past medical history of nicotine and cocaine abuse, atrial fibrillation, hypertension and chronic medication noncompliance admitted for acute hypoxic respiratory failure 2/2 COVID pneumonia s/p X3 intubation. Remains in the ICU on ventilatory support. Hospital Course to Date: 05/04/2021. Cardiology was considering patient for [employer]. However, patient with elevated creatinine therefore will hold off on cath evaluation. Nephrology consultation for acute kidney injury. Etiology likely secondary to vasomotor nephropathy/dehydration. We will start IV fluid hydration. Check renal ultrasound to rule out obstructive uropathy. We will resume home medications for the accelerated hypertension 05/05/2021. Echocardiogram reveals EF 35-40% with moderate concentric left ventricular hypertrophy. Moderate global hypokinesis of left ventricle. Mild mitral regurgitation. Mild pulmonary hypertension. Troponins are believed to be elevated in the setting of acute kidney injury. No beta-blockers due to cocaine use continue heparin and nitro drip. Continue CIWA protocol. Await urine studies 05/06/2021. Patient decompensated yesterday with worsening respiratory failure and difficulty to protect airway. Patient was breathing sonorously, and hypoxic. Patient was intubated and currently is on mechanical ventilation. Patient with AC mode ventilation rate of 20, tidal volume 450, FiO2 40% and PEEP of 6. COVID PCR testing on 05/05/2021 was found to be positive. Echocardiogram completed on this admission shows worsening EF from August 2020. Echocardiogram now reveals moderate concentric left ventricular hypertrophy with moderate global hypokinesis and EF of 35-40%. Mild pulmonary hypertension. 05/08: Continue current management, renal stable, LFTs stable and if improved will start on statin therapy. 05/09: Patient is febrile, will panculture, PSV today. CRP pending. Mucoid discharge noted from meatus which was sent for culture. Hypernatremia persists, free water flushes increased 05/10: PSV trial per CCM, T-max 102.3, given mildly elevated procalcitonin started on ceftriaxone 2 g every 24 for 2 days per ID. Overnight patient had atrial fibrillation which was treated with Cardizem drip and converted to sinus rhythm. Metoprolol p.o. increased to 3 times daily. 05/11: Patient still running fevers and if still febrile tomorrow will escalate to cefepime per ID as he is currently on ceftriaxone, CCM attempted PSV but patient became agitated and was switched back to pressure control. Lower extremity ultrasound shows acute DVT and started on heparin drip. Started on scheduled Librium. Patient remains with hypernatremia and elevated creatinine and on IV fluids. Free water flushes adjusted. Started on vancomycin today 05/12: Patient placed on pressure support trial without fentanyl, hypernatremia improving, hyperkalemia noted. Slight improvement to renal function. 05/13: Patient was extubated today, ID change antibiotics to Zosyn for Enterococcus, was started tapering Librium in the morning, renal function slightly improved. Possible transfer to floor tomorrow. ST evaluation for swallow ordered. 05/14: Patient became hypoglycemic overnight and started on dextrose IV fluids. Accu-Chek fingersticks have been low but on a.m. BMP patient blood glucose is 100. Other BMP pending. Feeding tube replaced due to need for enteral access and patient being severely confused. Renal functions remains the same. Upon confirmation will restart tube feedings, p.o. medications and free water flushes. 05/15: Remains confused/somnolent on my encounter. Librium taper in 24hrs per PCCM recs. Remains hypertensive. Added amlodipine 10 mg NG and labetalol prn. ST eval today but doubt he will participate. Potassium replaced. Renal function improving overall, however, hypernatremic. Inc TF FWF to 250 cc q4hr. 05/16: Respiratory distress this AM, hypoxic in 60's not protecting airway. Required intubation, patient now ICU patient. Reduce fluid to FWF only, IVF d/c off jun. CXR ordered demonstrates pulmonary edema. Lasix 40 mg IV bid ordered. Troponin elevated, continue heparin gtt. Would recommend decreasing sedating medications at this point, agree with librium taper. 05/17: Patient remains on the vent and sedated, RASS -3. Plan for possible sedation vacation today. D/w CCM plan to wean for possible extubation on the v ent. 2: Tolerated 4hrs of sedation vacation yesterday, on low dose fentanyl this am. Patient is tolerating PST this am. Plan to wean off sedation and wean vent setting for possible extubation today. 2/3: s/p extubation now stable on 3L NC. Lethargic this am, will decreased Seroquel. Speech consult for swallow eval, continue enteral nutrition via NGT for now. Hypertensive throughout the night, Norvac added. Remains on heparin gtt for DVT, might need to transition to PO AC, will d/w CCM. Patient is stable for transfer to [facility] 05/20: Continue sepsis work up considering fever, aspiration precautions. Discussed with nursing staff will hold am seroquel. Continue tube feed. RENAL Function remains relatively stable, possible has peaked. 05/21: Patient seen and examined, resting but still with mild increase wob, CXR concerning with right lobar infiltrate, continue antibiotics, will give kayxalate in addition due to hyperkalemia, Will discuss with ID due to rising lobito ekocytosis possible worsening sepsis. 05/22: Patient remains on BIPAP, still sedated appearing, cxr concerning for possible aspiration, unfortunately still worsening renal status. Will continue abx and continue collaboration with pulmonary team to ensure no over sedation. Continue abx, will add kayaxlate 05/23: Patient noted to have severe anemia today, will initiate GI work up and also Hemolysis work up. Will discuss with Vascular about possible IVC filter placement. Continue BIPAP, goal is to see if we can avert re-intubation. Transfuse 1 UNIT PRBC, Will discuss with Pulmonary about holding Eliquis for now. Renal failure still ongoing. 05/24: Patient had a positive occult and was anemic again today and received PRBC. GI was consulted. Repeat Dopplers are negative for DVT vascular recommends a CT/SQ heparin if tolerated and nephrology would like to increase IV fluids per FeNa results. Decrease metoprolol, seroquel and librium. surgery consult for trach/peg 05/25: RT decreased FiO2. GI signed off, Cr slightly improved, Anemia improved. Tmax 101.4 noted, abx per ID. 05/26: Patient had a temperature spike and was recultured, no plan today changes made as patient continues to breathe over the vent, one time dose of fent patch, repeat dopllar in [address] [facility], miralax q hs 05/27: Added vancomycin per ID, started CPAP trials, prophylactic heparin, IV fluids stopped per ID. 05/28: No acute events reported overnight, T-max 100.6, slight improvement to BUN/creatinine. awaiting trach & PEG 05/29: Creatinine continues trending down, remains on minimal vent settings. CPAP as tolerated. 05/30: Patient remains lethargic, opened eyes and tracking this am. Librium will end tonight and decrease seroquel for now. PRN analgesics added for pain management. Patient remains with intermittent fevers, BLE doppler neg for DVT, recent cultures with NGTD, continue current IV abx per ID. LUE swelling noted, LUE doppler pending. Trach and PEG is now on hold, case management is trying to get in contact with a living relative for consent. 05/31: Low dose sedation initiated yesterday due to increase work of breathing and high RR. Patient is stable this am, appears comfortable, tolerating PST. LUE doppler noted with superficial thrombosis in the left cephalic and basilic veins, continue AC- heparin SubQ. 06/01: Off sedation this am for sedation vacation. Still drowsy, however, more alert and following simple commands. Seroquel held overnight and this am, will D/C for now. Tolerating PST this am 06/02: Back on low dose fentanyl, remains awake and tracking. Continue to tolerate PST this am. Still no living relatives have been located for patient at this time. This is day-10 since reintubation, d/w CCM possible two physicians consent for Trach and PEG is warranted at this time since we can't get in contact with a living relative and the dow of stated process is still pending. Assessment and Plan #Neuro: Metabolic encephalopathy #Polysubstance Abuse -UDS positive for amphetamines -On CIWA protocol -Librium end tonight -Seroquel on hold -Monitor QTc -Avoid delirium -PRN analgesia added for pain management -We will need cessation counseling when appropriate #Cardio:Heart failure reduced EF #Cardiomyopathy #Paroxysmal atrial fibrillation #S/p hypertensive emergency, h/o HTN -Continue beta-sylvia, aspirin, statin, hydral, titrate as needed -Cardiology consulted, appreciate recommendations -Echo 05/04/2021-EF 35 to 40%. Moderate concentric LVH. Moderate global hypokinesis of left ventricle. Mild mitral regurgitation. Mild pulmonary hypertension. -Echocardiogram reviewed (08/27/2020): LVEF is 50 to 55%. Mild to moderate concentric LVF. Severe diastolic dysfunction is present (restrictive filling). Right ventricle is mildly hypokinetic. RVSP is 48 mmHg. No valvular abnormalities. -S/p Cardizem drip for atrial fibrillation -Blood pressure monitoring per protocol #Respiratory:Acute Hypoxic respiratory failure -S/p X3 intubation -CCM consulted, appreciate recommendations -Intubated on 05/05 in the ED and extubated 05/13, Re-intubated on 05/16 and Extubated on 05/18 -Reintubated 05/23 -Vent setting:CPAP-25%,8 PS-15 -CCM consulted, appreciate recommendations -VAP bundle addressed -Aspiration precaution HOB above 30 -Daily SBT and SAT trials as tolerated -PRN ABG and CXR per CCM -Continue SPO2 monitoring for SPO2 goal above 92% -Need to be trach and PEG- Currently on hold, trying to get in contact with a living relative for consent #Acute kidney injury likely secondary to vasomotor nephropathy -Nephrology consulted, appreciate recommendations -Renal ultrasound completed: 1.7 hyper echoic mass within the left upper pole, continue to monitor and follow-up with CT once stable -Strict intake and output -Avoid nephrotoxic medications; Renally dose medications -Monitor and replace electrolytes as needed -Trend BMP #Transaminitis, h/o hepatitis C -LFT with some mild improvement -Continue to trend LFTs #ID:Severe COVID-19 pneumonia, Enterobacter aerogenes PNA, s/p Enterococcus faecalis UTI -Infectious disease consulted, appreciate recommendations -COVID-19 PCR positive -s/p droplet/precautions for 21 days -Not a candidate for remdesivir given acute kidney injury -s/p Dexamethasone for 10 days -Anticoagulation per hospital protocol -Trend COVID-19 from 2 markers (ferritin, D-dimer, CRP, LDH) -05/09 urine culture with Enterococcus faecalis -05/16 tracheal aspirate with Enterobacter aerogenes -per ID Due to persistent fevers switched cefepime to IV ertapenem renally adjusted 05/24 -GC negative -f/u culture data -re-cultured 05/26 #Heme: Anemia, Acute DVT (resolved) -Bilateral lower extremity Doppler ultrasound shows acute DVT -heparin gtt converted to DOAC but now d/c -vascular surgery consulted for possible IVC filter placement, appreciate recommendations -repeat doppler shows no DVT -05/30 LUE doppler noted with superficial thrombosis in the left cephalic and basilic veins -subq heparin for prophylaxis -Pulmonary perfusion study showed low probability of pulmonary embolism -S/p 3 unit PRBC -Trend CBC -Transfuse for hemoglobin less than 7 The high probability of a clinically significant, sudden or life threatening deterioration of the [cardio/resp] system(s) required my full and direct attention, intervention and personal management. The aggregate critical care time was [60] minutes. This time is in addition to time spent performing reported procedures but includes the following: [x] Data Review and interpretation [x] Patient assessment and monitoring of vital signs [x] Documentation [x] Medication orders and management Disposition Plan: ICU Total Time Spent with Patient (Minutes): 60 History Interval history: Patient seen and examined at the bedside. Remains on the vent and low dose fentanyl. Open eyes spontaneously and tracking. HUSSEIN overnight Hospitalist Physical - Constitutional Vitals: Temp Pulse Resp BP Pulse Ox 99.5 F 65 10 L 146/90 99 06/02/21 11:35 06/02/21 11:16 06/02/21 11:16 06/02/21 11:16 06/02/21 11:16 General appearance: Present: no acute distress, other (Intubated) - EENT Eyes: Present: PERRL ENT: hearing intact - Neck Neck: Present: normal ROM - Respiratory Respiratory effort: normal Respiratory: bilateral: rhonchi - Cardiovascular Rhythm: regular Heart Sounds: Present: S1 & S2 - Extremities Extremities: no ischemia, pulses intact, pulses symmetrical Peripheral Pulses: within normal limits - Abdominal General gastrointestinal: soft, non-distended, normal bowel sounds - Integumentary Integumentary: Present: warm, dry - Psychiatric Psychiatric: other (Intubated) - Neurologic Neurologic: other (Intubated) - Allied Health Allied health notes reviewed: nursing HEART Score - HEART Score EKG: Non-specific Age: 45-65 Risk factors: 1-2 risk factors Troponin: Troponin T 0.400 ng/mL (0.00-0.029) H* D 05/16/21 18:40 Troponin: 1-3x normal limit - Critical Actions Critical Actions: 4-6 pts:12-16.6% risk of adverse cardiac event. Should be admitted Results - Labs CBC & Chem 7: 06/01/21 04:56 06/02/21 04:06 Labs: Laboratory Last Values WBC 8.9 K/mm3 (4.5-11.0) 06/01/21 04:56 RBC 3.14 M/mm3 (3.65-5.03) L 06/01/21 04:56 Hgb 9.1 gm/dl (11.8-15.2) L 06/01/21 04:56 Hct 29.0 % (35.5-45.6) L 06/01/21 04:56 MCV 92 fl (84-94) 06/01/21 04:56 MCH 29 pg (28-32) 06/01/21 04:56 MCHC 32 % (32-34) 06/01/21 04:56 RDW 16.3 % (13.2-15.2) H 06/01/21 04:56 Plt Count 440 K/mm3 (140-440) 06/01/21 04:56 Lymph % (Auto) [employer] 05/16/21 10:21 [place] % (Auto) [employer] 05/16/21 10:21 Eos % (Auto) [employer] 05/16/21 10:21 Baso % (Auto) [employer] 05/16/21 10:21 Lymph # (Auto) [employer] 05/16/21 10:21 [place] # (Auto) Intern [employer] 05/16/21 10:21 Eos # (Auto) [employer] 05/16/21 10:21 Baso # (Auto) [employer] 05/16/21 10:21 Add Manual Diff Complete 05/28/21 04:04 Total Counted 100 05/28/21 04:04 Seg Neutrophils % [employer] 05/16/21 10:21 Seg Neuts % (Manual) 93.0 % (40.0-70.0) H 05/28/21 04:04 Band Neutrophils % 1.0 % 05/28/21 04:04 Lymphocytes % (Manual) 2.0 % (13.4-35.0) L 05/28/21 04:04 Reactive Lymphs % (Man) 0 % 05/28/21 04:04 Monocytes % (Manual) 4.0 % (0.0-7.3) 05/28/21 04:04 Eosinophils % (Manual) 0 % (0.0-4.3) 05/28/21 04:04 Basophils % (Manual) 0 % (0.0-1.8) 05/28/21 04:04 Metamyelocytes % 0 % 05/28/21 04:04 Myelocytes % 0 % 05/28/21 04:04 Promyelocytes % 0 % 05/28/21 04:04 Blast Cells % 0 % 05/28/21 04:04 Nucleated RBC % Not Reportable 05/28/21 04:04 Seg Neutrophils # [employer] 05/16/21 10:21 Seg Neutrophils # Man 13.1 K/mm3 (1.8-7.7) H 05/28/21 04:04 Band Neutrophils # 0.1 K/mm3 05/28/21 04:04 Lymphocytes # (Manual) 0.3 K/mm3 (1.2-5.4) L 05/28/21 04:04 Abs React Lymphs (Man) 0.0 K/mm3 05/28/21 04:04 Monocytes # (Manual) 0.6 K/mm3 (0.0-0.8) 05/28/21 04:04 Eosinophils # (Manual) 0.0 K/mm3 (0.0-0.4) 05/28/21 04:04 Basophils # (Manual) 0.0 K/mm3 (0.0-0.1) 05/28/21 04:04 Metamyelocytes # 0.0 K/mm3 05/28/21 04:04 Myelocytes # 0.0 K/mm3 05/28/21 04:04 Promyelocytes # 0.0 K/mm3 05/28/21 04:04 Blast Cells # 0.0 K/mm3 05/28/21 04:04 WBC Morphology Not Reportable 05/28/21 04:04 Hypersegmented Neuts Not Reportable 05/28/21 04:04 Hyposegmented Neuts Not Reportable 05/28/21 04:04 Hypogranular Neuts Not Reportable 05/28/21 04:04 Smudge Cells Not Reportable 05/28/21 04:04 Toxic Granulation Not Reportable 05/28/21 04:04 Toxic Vacuolation Not Reportable 05/28/21 04:04 Dohle Bodies Not Reportable 05/28/21 04:04 Pelger-Huet Anomaly Not Reportable 05/28/21 04:04 Jesse Rods Not Reportable 05/28/21 04:04 Platelet Estimate Consistent w auto 05/28/21 04:04 Clumped Platelets Not Reportable 05/28/21 04:04 Plt Clumps, EDTA Not Reportable 05/28/21 04:04 Large Platelets Not Reportable 05/28/21 04:04 Giant Platelets Not Reportable 05/28/21 04:04 Platelet Satelliting Not Reportable 05/28/21 04:04 Plt Morphology Comment Not Reportable 05/28/21 04:04 RBC Morphology Not Reportable 05/28/21 04:04 Dimorphic RBCs Not Reportable 05/28/21 04:04 Polychromasia Not Reportable 05/28/21 04:04 Hypochromasia Not Reportable 05/28/21 04:04 Poikilocytosis Not Reportable 05/28/21 04:04 Anisocytosis 1+ 05/28/21 04:04 Microcytosis Not Reportable 05/28/21 04:04 Macrocytosis Not Reportable 05/28/21 04:04 Spherocytes Not Reportable 05/28/21 04:04 Pappenheimer Bodies Not Reportable 05/28/21 04:04 Sickle Cells Not Reportable 05/28/21 04:04 Target Cells Not Reportable 05/28/21 04:04 Tear Drop Cells Not Reportable 05/28/21 04:04 Ovalocytes Not Reportable 05/28/21 04:04 Helmet Cells Not Reportable 05/28/21 04:04 Murphy-Sloan Bodies Not Reportable 05/28/21 04:04 [place] Rings Not Reportable 05/28/21 04:04 [place] Cells Not Reportable 05/28/21 04:04 Bite Cells Not Reportable 05/28/21 04:04 Crenated Cell Not Reportable 05/28/21 04:04 Elliptocytes Not Reportable 05/28/21 04:04 Acanthocytes (Spur) Not Reportable 05/28/21 04:04 Rouleaux Not Reportable 05/28/21 04:04 Hemoglobin C Crystals Not Reportable 05/28/21 04:04 Schistocytes Not Reportable 05/28/21 04:04 Malaria parasites Not Reportable 05/28/21 04:04 Tomi Bodies Not Reportable 05/28/21 04:04 Haptoglobin 254 mg/dL (43-212) H 05/23/21 18:54 Hem Pathologist Commnt No 05/28/21 04:04 PT 14.9 Sec. (12.2-14.9) 05/25/21 04:25 INR 1.05 (0.87-1.13) 05/25/21 04:25 APTT 72.5 Sec. (24.2-36.6) H* 05/19/21 19:36 D-Dimer 2730.61 ng/mlDDU (0-234) H 05/12/21 07:19 Heparin Anti-Xa Level 0.47 U.I./ml (0.3-0.7) 05/19/21 05:23 ABG pH 7.443 pH Units (7.350-7.450) 05/27/21 09:20 ABG pCO2 38.8 mm Hg 05/27/21 09:20 ABG pO2 115.2 mm Hg (80.0-90.0) H 05/27/21 09:20 ABG HCO3 25.9 mmol/L (20.0-26.0) 05/27/21 09:20 ABG O2 Saturation 98.3 % (95.0-99.0) 05/27/21 09:20 ABG O2 Content 12.5 (0.0-44) 05/27/21 09:20 ABG Base Excess 1.7 mmol/L (-2.0-3.0) 05/27/21 09:20 ABG Hemoglobin 9.2 gm/dl (14.0-18.0) L 05/27/21 09:20 ABG Carboxyhemoglobin 2.2 % (0.0-5.0) 05/27/21 09:20 ABG Methemoglobin 0.7 % (0.0-1.5) 05/27/21 09:20 Oxyhemoglobin 95.4 % (95.0-99.0) 05/27/21 09:20 FiO2 30 % 05/27/21 09:20 Sodium 142 mmol/L (137-145) 06/02/21 04:06 Potassium 4.1 mmol/L (3.6-5.0) 06/02/21 04:06 Chloride 105.4 mmol/L (98-107) 06/02/21 04:06 Carbon Dioxide 30 mmol/L (22-30) 06/02/21 04:06 Anion Gap 11 mmol/L 06/02/21 04:06 BUN 46 mg/dL (9-20) H 06/02/21 04:06 Creatinine 1.2 mg/dL (0.8-1.3) 06/02/21 04:06 Estimated GFR > 60 ml/min 06/02/21 04:06 BUN/Creatinine Ratio 38 % 06/02/21 04:06 Glucose 121 mg/dL (75-100) H 06/02/21 04:06 POC Glucose 119 mg/dL (70-105) H 06/02/21 11:06 Lactic Acid 0.90 mmol/L (0.7-2.0) 05/20/21 09:17 Calcium 8.6 mg/dL (8.4-10.2) 06/02/21 04:06 Phosphorus 3.70 mg/dL (2.5-4.5) 06/01/21 04:56 Magnesium 2.10 mg/dL (1.7-2.3) 06/01/21 04:56 Iron 10 ug/dL (49-181) L 05/23/21 Unknown TIBC 151 mcg/dL (250-450) L 05/23/21 Unknown Ferritin 640.2 ng/mL (30.0-300.0) H 05/12/21 07:19 Total Bilirubin 0.50 mg/dL (0.1-1.2) 05/24/21 04:11 AST 152 units/L (5-40) H 05/24/21 04:11 ALT 125 units/L (7-56) H 05/24/21 04:11 Alkaline Phosphatase 72 units/L (35-129) 05/24/21 04:11 Lactate Dehydrogenase 311 units/L (91-180) H 05/23/21 Unknown Total Creatine Kinase 406 units/L (55-170) H 05/04/21 08:42 Troponin T 0.400 ng/mL (0.00-0.029) H* D 05/16/21 18:40 C-Reactive Protein 13.20 mg/dL (0.00-1.30) H 05/28/21 04:04 Total Protein 6.6 g/dL (6.3-8.2) 05/24/21 04:11 Albumin 2.5 g/dL (3.9-5) L 05/24/21 04:11 Albumin/Globulin Ratio 0.6 % 05/24/21 04:11 Triglycerides 144 mg/dL (2-149) 05/10/21 04:57 Cholesterol 140 mg/dL (50-199) 05/04/21 07:25 LDL Cholesterol Direct 89 mg/dL (50-130) 05/04/21 07:25 HDL Cholesterol 48 mg/dL (40-59) 05/04/21 07:25 Cholesterol/HDL Ratio 2.91 % 05/04/21 07:25 Procalcitonin 0.63 ng/mL (<0.15) 05/09/21 15:53 Urine Color Yellow (Yellow) 05/26/21 09:50 Urine Turbidity Turbid (Clear) 05/26/21 09:50 Urine pH 5.0 (5.0-7.0) 05/26/21 09:50 Ur Specific [place] 1.014 (1.003-1.030) 05/26/21 09:50 Urine Protein 30 mg/dl mg/dL (Negative) 05/26/21 09:50 Urine Glucose (UA) Neg mg/dL (Negative) 05/26/21 09:50 Urine Ketones Neg mg/dL (Negative) 05/26/21 09:50 Urine Blood Sm (Negative) 05/26/21 09:50 Urine Nitrite Neg (Negative) 05/26/21 09:50 Urine Bilirubin Neg (Negative) 05/26/21 09:50 Urine Urobilinogen < 2.0 mg/dL (<2.0) 05/26/21 09:50 Ur Leukocyte Esterase Tr (Negative) 05/26/21 09:50 Urine WBC (Auto) 38.0 /HPF (0.0-6.0) H 05/26/21 09:50 Urine RBC (Auto) 5.0 /HPF (0.0-6.0) 05/26/21 09:50 U Epithel Cells (Auto) 1.0 /HPF (0-13.0) 05/23/21 16:30 Urine Bacteria (Auto) 1+ /HPF (Negative) 05/23/21 16:30 Uric Acid Crystals Few 05/09/21 00:40 Triple Phos Crystals 2+ 05/09/21 13:22 Amorphous Crystals 3+ 05/26/21 09:50 Granular Casts 20 /LPF 05/26/21 09:50 Urine Mucus Few /HPF 05/23/21 16:30 Urine Creatinine 100.1 mg/dL (0.1-20.0) H 05/23/21 16:30 Protein/Creatinin Ratio 0.42 05/10/21 11:03 Urine Sodium 25 mmol/L 05/23/21 16:30 Fraction Sodium Excret 0.3 05/23/21 16:30 Urine Total Protein 42 mg/dL (5-11.8) H 05/10/21 11:03 Vancomycin Trough 15.4 ug/mL (5.0-20.0) 05/29/21 14:15 Urine Opiates Screen Negative 05/04/21 Unknown Urine Methadone Screen Negative 05/04/21 Unknown Ur Barbiturates Screen Negative 05/04/21 Unknown Ur Phencyclidine Scrn Negative 05/04/21 Unknown Ur Amphetamines Screen Positive 05/04/21 Unknown U Benzodiazepines Scrn Negative 05/04/21 Unknown Urine Cocaine Screen Negative 05/04/21 Unknown U Marijuana (THC) Screen Negative 05/04/21 Unknown Drugs of Abuse Note Disclamer 05/04/21 Unknown Immunofix Electrophor see below 05/05/21 03:40 AUDRA Screen Negative (Negative) 05/05/21 03:40 Proteinase 3 (PR3) Ab <1.0 AI (<1.0) 05/05/21 03:40 Myeloperoxidase Ab <1.0 AI (<1.0) 05/05/21 03:40 Complement C3 72 mg/dL (82-185) L 05/05/21 03:40 Complement C4 17 mg/dL (15-53) 05/05/21 03:40 Coronavirus (PCR) Positive (Negative) A 05/05/21 08:30 Hepatitis A IgM Ab Non-reactive (NonReactive) 05/05/21 03:40 Hep Bs Antigen Non-reactive (Negative) 05/05/21 03:40 Hep B Core IgM Ab Non-reactive (NonReactive) 05/05/21 03:40 Hepatitis C Antibody Reactive (NonReactive) A 05/05/21 03:40 Blood Type O POSITIVE 05/23/21 07:12 Antibody Screen Negative 05/23/21 07:12 Crossmatch See Detail 05/23/21 07:12 [place]/IV: Voiding Method Indwelling Catheter Active Medications - Current Medications Current Medications: Generic Name Dose Route Start Last Admin Trade Name Freq PRN Reason Stop Dose Admin Acetaminophen 650 mg 05/04/21 12:34 06/02/21 05:21 Acetaminophen 325 Mg Tab PO 650 mg Q4H PRN Administration Pain MILD(1-3)/Fever >100.5/MARIA Acetaminophen 650 mg 05/07/21 16:00 05/11/21 16:25 Acetaminophen 650 Mg Rect Supp RI 650 mg Q4H PRN Administration Pain, Mild (1-3) Atorvastatin Calcium 40 mg 05/09/21 22:00 06/01/21 21:11 Atorvastatin 40 Mg Tab FEEDTUBE 40 mg QHS RISHI Administration Dextrose 0 ml 05/09/21 10:49 05/14/21 06:55 Dextrose 10% *Hypoglycemia IV 250 ml PRN PRN Administration Hypoglycemia Fentanyl 50 mcg 05/23/21 15:00 Fentanyl 100 Mcg/2 Ml Inj IV Q10MIN PRN ANALGESIA Haloperidol Lactate 5 mg 05/09/21 18:32 05/18/21 19:52 Haloperidol Lactate 5 Mg/1 Ml Inj IV 5 mg Q6H PRN Administration Agitation Heparin Sodium (Porcine) 5,000 unit 05/27/21 22:00 06/02/21 10:35 Heparin 5,000 Unit/1 Ml Vial SUB-Q 5,000 unit Q12HR RISHI Administration Hydralazine HCl 50 mg 05/04/21 14:00 06/02/21 05:21 Hydralazine 25 Mg Tab PO 50 mg Q8HR RISHI Administration Hydrophilic Ointment 1 applic 05/05/21 15:21 Lip Therapy Vaseline TP Q2HR PRN Dry Lips Fentanyl Citrate 2,000 mcg in 100 mls @ 4.082 mls/hr 05/23/21 15:00 06/01/21 11:31 Fentanyl Drip Premix IV 0.5 mcg/kg/hr TITR RISHI 2.041 mls/hr Administration Protocol 1 MCG/KG/HR Insulin Human Lispro 0 unit 05/10/21 09:40 05/12/21 16:49 Insulin Lispro 100 Unit/Ml SUB-Q 2 unit Q6HR PRN Administration Hyperglycemia Protocol Labetalol HCl 10 mg 05/15/21 10:24 05/25/21 08:15 Labetalol 20 Mg/4 Ml Inj IV 10 mg Q4H PRN Administration sbp> 160. Lansoprazole 30 mg 05/26/21 10:00 06/02/21 10:36 Lansoprazole 30 Mg Solutab FEEDTUBE 30 mg BID RISHI Administration Metoprolol Tartrate 50 mg 05/26/21 08:00 06/02/21 08:35 Metoprolol Tartrate 25 Mg Tab FEEDTUBE 50 mg TID RISHI Administration Multi-Ingred Cream/Lotion/Oil/Oint 1 applic 05/05/21 15:21 Mineral Oil/Petrolatum, White Ophth Oint 3.5 Gm OU Q4HR PRN Dry Eye(s) Ondansetron HCl 4 mg 05/04/21 12:34 05/04/21 21:51 Ondansetron 4 Mg/2 Ml Inj IV 4 mg Q8H PRN Administration Nausea And Vomiting Oxycodone HCl 5 mg 05/30/21 11:00 05/30/21 14:55 Oxycodone 5 Mg Tab PO 5 mg Q6H PRN Administration Pain, Moderate (4-6) Polyethylene Glycol 17 gm 05/26/21 22:00 06/01/21 21:11 Polyethylene Glycol 3350 17 Gm Powder PO Not Given QHS RISHI Senna/Docusate Sodium 1 tab 05/05/21 22:00 06/02/21 10:36 Sennosides/Docusate Sodium 8.6/50 Mg Tab FEEDTUBE 1 tab BID RISHI Administration Sodium Chloride 10 ml 05/04/21 22:00 06/02/21 10:36 Sodium Chloride 0.9% 10 Ml Flush Syringe IV 10 ml BID RISHI Administration Sodium Chloride 10 ml 05/04/21 12:34 05/06/21 13:59 Sodium Chloride 0.9% 10 Ml Flush Syringe IV 10 ml PRN PRN Administration LINE FLUSH Sodium Chloride 10 ml 05/09/21 09:46 Sodium Chloride 0.9% 50 Ml Ivpb IV PRN PRN FLUSH Nutrition/Malnutrition Assess - Dietary Evaluation Nutrition/Malnutrition Findings: Nutrition Notes Start: 05/05/21 16:15 Freq: Status: Active Protocol: Document 05/27/21 15:02 ROSAURA (Rec: 05/27/21 15:07 ROSAURA [id number]) Nutrition Notes Initial or Follow up Reassessment Current Diagnosis Acute Kidney Injury, Hypertension,Heart Failure, Respiratory Failure Other Pertinent Diagnosis Severe COVID-19 pneu, metabolic encephalopathy, polysubstance dependence Current Diet TF - Nepro at 45ml/hr Labs/Tests BUN 56 Cr 1.8 Pertinent Medications Miralax Height 5 ft 7 in Weight 81.647 kg [place] Body Weight (kg) 67.27 BMI 28.1 Weight Status Overweight Subjective/Other Information Pt re-intubated on 05/23; rectal tube in place as well. Trach /PEG placement pending; awaiting family consent. Per RN, pt tolerating TF at goal rate. Percent of energy/protein needs met: 100% energy 89% pro Burn Absent Trauma Absent #1 Nutrition Diagnosis Inadequate oral intake Diagnosis Progress(for reassessment Continues documentation) Is patient on ventilator? Yes Is Patient Ambulatory and/or Out of Bed No REE-([place]-St. Jeor-confined to bed) 5901.674 Calculation Used for Recommendations [place]-St Jeor Additional Notes Pro needs 1.2-2g/k-163g/ day Fluid needs 1ml/kcal Nutrition Intervention Nutrition Support: Continue Nepro at 45ml/hr with 200ml water flush q4h. Kcal 1,944 Protein (gm) 87 Carbohydrates (gm) 174 Fat (gm) 104 Fluid (mL) 785 Fiber (gm) 14 Goal #1 TF tolerance Goal #2 TF to meet at least 75% energy and pro needs Follow-Up By: 06/03/21 Additional Comments F/U: vent status, stable TF, trach/PEG placement <VIKRAM SAENZ - Last Filed: 06/03/21 07:17> Assessment and Plan Assessment and plan: I saw and evaluated the patient. I agree with the findings and the plan of care as documented in the Nurse Practitioner's~note, with the following corrections and additions. Hospitalist Physical - Constitutional Vitals: Temp Pulse Resp BP Pulse Ox 98.8 F 59 L 17 110/74 100 06/03/21 03:25 06/03/21 06:00 06/03/21 06:00 06/03/21 06:00 06/03/21 06:00 HEART Score - HEART Score Troponin: Troponin T 0.400 ng/mL (0.00-0.029) H* D 05/16/21 18:40 Results - Labs CBC & Chem 7: 06/03/21 04:15 06/03/21 04:15 Labs: Laboratory Last Values WBC 11.0 K/mm3 (4.5-11.0) 06/03/21 04:15 RBC 3.40 M/mm3 (3.65-5.03) L 06/03/21 04:15 Hgb 10.0 gm/dl (11.8-15.2) L 06/03/21 04:15 Hct 31.3 % (35.5-45.6) L 06/03/21 04:15 MCV 92 fl (84-94) 06/03/21 04:15 MCH 30 pg (28-32) 06/03/21 04:15 MCHC 32 % (32-34) 06/03/21 04:15 RDW 16.0 % (13.2-15.2) H 06/03/21 04:15 Plt Count 463 K/mm3 (140-440) H 06/03/21 04:15 Lymph % (Auto) Intern [employer] 05/16/21 10:21 [place] % (Auto) Intern [employer] 05/16/21 10:21 Eos % (Auto) Intern [employer] 05/16/21 10:21 Baso % (Auto) Intern [employer] 05/16/21 10:21 Lymph # (Auto) Intern [employer] 05/16/21 10:21 [place] # (Auto) Intern [employer] 05/16/21 10:21 Eos # (Auto) Intern [employer] 05/16/21 10:21 Baso # (Auto) Intern [employer] 05/16/21 10:21 Add Manual Diff Complete 05/28/21 04:04 Total Counted 100 05/28/21 04:04 Seg Neutrophils % Intern [employer] 05/16/21 10:21 Seg Neuts % (Manual) 93.0 % (40.0-70.0) H 05/28/21 04:04 Band Neutrophils % 1.0 % 05/28/21 04:04 Lymphocytes % (Manual) 2.0 % (13.4-35.0) L 05/28/21 04:04 Reactive Lymphs % (Man) 0 % 05/28/21 04:04 Monocytes % (Manual) 4.0 % (0.0-7.3) 05/28/21 04:04 Eosinophils % (Manual) 0 % (0.0-4.3) 05/28/21 04:04 Basophils % (Manual) 0 % (0.0-1.8) 05/28/21 04:04 Metamyelocytes % 0 % 05/28/21 04:04 Myelocytes % 0 % 05/28/21 04:04 Promyelocytes % 0 % 05/28/21 04:04 Blast Cells % 0 % 05/28/21 04:04 Nucleated RBC % Not Reportable 05/28/21 04:04 Seg Neutrophils # Intern [employer] 05/16/21 10:21 Seg Neutrophils # Man 13.1 K/mm3 (1.8-7.7) H 05/28/21 04:04 Band Neutrophils # 0.1 K/mm3 05/28/21 04:04 Lymphocytes # (Manual) 0.3 K/mm3 (1.2-5.4) L 05/28/21 04:04 Abs React Lymphs (Man) 0.0 K/mm3 05/28/21 04:04 Monocytes # (Manual) 0.6 K/mm3 (0.0-0.8) 05/28/21 04:04 Eosinophils # (Manual) 0.0 K/mm3 (0.0-0.4) 05/28/21 04:04 Basophils # (Manual) 0.0 K/mm3 (0.0-0.1) 05/28/21 04:04 Metamyelocytes # 0.0 K/mm3 05/28/21 04:04 Myelocytes # 0.0 K/mm3 05/28/21 04:04 Promyelocytes # 0.0 K/mm3 05/28/21 04:04 Blast Cells # 0.0 K/mm3 05/28/21 04:04 WBC Morphology Not Reportable 05/28/21 04:04 Hypersegmented Neuts Not Reportable 05/28/21 04:04 Hyposegmented Neuts Not Reportable 05/28/21 04:04 Hypogranular Neuts Not Reportable 05/28/21 04:04 Smudge Cells Not Reportable 05/28/21 04:04 Toxic Granulation Not Reportable 05/28/21 04:04 Toxic Vacuolation Not Reportable 05/28/21 04:04 Dohle Bodies Not Reportable 05/28/21 04:04 Pelger-Huet Anomaly Not Reportable 05/28/21 04:04 Jesse Rods Not Reportable 05/28/21 04:04 Platelet Estimate Consistent w auto 05/28/21 04:04 Clumped Platelets Not Reportable 05/28/21 04:04 Plt Clumps, EDTA Not Reportable 05/28/21 04:04 Large Platelets Not Reportable 05/28/21 04:04 Giant Platelets Not Reportable 05/28/21 04:04 Platelet Satelliting Not Reportable 05/28/21 04:04 Plt Morphology Comment Not Reportable 05/28/21 04:04 RBC Morphology Not Reportable 05/28/21 04:04 Dimorphic RBCs Not Reportable 05/28/21 04:04 Polychromasia Not Reportable 05/28/21 04:04 Hypochromasia Not Reportable 05/28/21 04:04 Poikilocytosis Not Reportable 05/28/21 04:04 Anisocytosis 1+ 05/28/21 04:04 Microcytosis Not Reportable 05/28/21 04:04 Macrocytosis Not Reportable 05/28/21 04:04 Spherocytes Not Reportable 05/28/21 04:04 Pappenheimer Bodies Not Reportable 05/28/21 04:04 Sickle Cells Not Reportable 05/28/21 04:04 Target Cells Not Reportable 05/28/21 04:04 Tear Drop Cells Not Reportable 05/28/21 04:04 Ovalocytes Not Reportable 05/28/21 04:04 Helmet Cells Not Reportable 05/28/21 04:04 Murphy-Sloan Bodies Not Reportable 05/28/21 04:04 [place] Rings Not Reportable 05/28/21 04:04 [place] Cells Not Reportable 05/28/21 04:04 Bite Cells Not Reportable 05/28/21 04:04 Crenated Cell Not Reportable 05/28/21 04:04 Elliptocytes Not Reportable 05/28/21 04:04 Acanthocytes (Spur) Not Reportable 05/28/21 04:04 Rouleaux Not Reportable 05/28/21 04:04 Hemoglobin C Crystals Not Reportable 05/28/21 04:04 Schistocytes Not Reportable 05/28/21 04:04 Malaria parasites Not Reportable 05/28/21 04:04 Tomi Bodies Not Reportable 05/28/21 04:04 Haptoglobin 254 mg/dL (43-212) H 05/23/21 18:54 Hem Pathologist Commnt No 05/28/21 04:04 PT 14.9 Sec. (12.2-14.9) 05/25/21 04:25 INR 1.05 (0.87-1.13) 05/25/21 04:25 APTT 72.5 Sec. (24.2-36.6) H* 05/19/21 19:36 D-Dimer 2730.61 ng/mlDDU (0-234) H 05/12/21 07:19 Heparin Anti-Xa Level 0.47 U.I./ml (0.3-0.7) 05/19/21 05:23 ABG pH 7.443 pH Units (7.350-7.450) 05/27/21 09:20 ABG pCO2 38.8 mm Hg 05/27/21 09:20 ABG pO2 115.2 mm Hg (80.0-90.0) H 05/27/21 09:20 ABG HCO3 25.9 mmol/L (20.0-26.0) 05/27/21 09:20 ABG O2 Saturation 98.3 % (95.0-99.0) 05/27/21 09:20 ABG O2 Content 12.5 (0.0-44) 05/27/21 09:20 ABG Base Excess 1.7 mmol/L (-2.0-3.0) 05/27/21 09:20 ABG Hemoglobin 9.2 gm/dl (14.0-18.0) L 05/27/21 09:20 ABG Carboxyhemoglobin 2.2 % (0.0-5.0) 05/27/21 09:20 ABG Methemoglobin 0.7 % (0.0-1.5) 05/27/21 09:20 Oxyhemoglobin 95.4 % (95.0-99.0) 05/27/21 09:20 FiO2 30 % 05/27/21 09:20 Sodium 140 mmol/L (137-145) 06/03/21 04:15 Potassium 4.0 mmol/L (3.6-5.0) 06/03/21 04:15 Chloride 102.5 mmol/L (98-107) 06/03/21 04:15 Carbon Dioxide 28 mmol/L (22-30) 06/03/21 04:15 Anion Gap 14 mmol/L 06/03/21 04:15 BUN 44 mg/dL (9-20) H 06/03/21 04:15 Creatinine 1.3 mg/dL (0.8-1.3) 06/03/21 04:15 Estimated GFR 57 ml/min 06/03/21 04:15 BUN/Creatinine Ratio 34 % 06/03/21 04:15 Glucose 115 mg/dL (75-100) H 06/03/21 04:15 POC Glucose 115 mg/dL (70-105) H 06/02/21 23:27 Lactic Acid 0.90 mmol/L (0.7-2.0) 05/20/21 09:17 Calcium 8.6 mg/dL (8.4-10.2) 06/03/21 04:15 Phosphorus 3.70 mg/dL (2.5-4.5) 06/01/21 04:56 Magnesium 2.10 mg/dL (1.7-2.3) 06/01/21 04:56 Iron 10 ug/dL (49-181) L 05/23/21 Unknown TIBC 151 mcg/dL (250-450) L 05/23/21 Unknown Ferritin 640.2 ng/mL (30.0-300.0) H 05/12/21 07:19 Total Bilirubin 0.50 mg/dL (0.1-1.2) 05/24/21 04:11 AST 152 units/L (5-40) H 05/24/21 04:11 ALT 125 units/L (7-56) H 05/24/21 04:11 Alkaline Phosphatase 72 units/L (35-129) 05/24/21 04:11 Lactate Dehydrogenase 311 units/L (91-180) H 05/23/21 Unknown Total Creatine Kinase 406 units/L (55-170) H 05/04/21 08:42 Troponin T 0.400 ng/mL (0.00-0.029) H* D 05/16/21 18:40 C-Reactive Protein 13.20 mg/dL (0.00-1.30) H 05/28/21 04:04 Total Protein 6.6 g/dL (6.3-8.2) 05/24/21 04:11 Albumin 2.5 g/dL (3.9-5) L 05/24/21 04:11 Albumin/Globulin Ratio 0.6 % 05/24/21 04:11 Triglycerides 144 mg/dL (2-149) 05/10/21 04:57 Cholesterol 140 mg/dL (50-199) 05/04/21 07:25 LDL Cholesterol Direct 89 mg/dL (50-130) 05/04/21 07:25 HDL Cholesterol 48 mg/dL (40-59) 05/04/21 07:25 Cholesterol/HDL Ratio 2.91 % 05/04/21 07:25 Procalcitonin 0.63 ng/mL (<0.15) 05/09/21 15:53 Urine Color Yellow (Yellow) 05/26/21 09:50 Urine Turbidity Turbid (Clear) 05/26/21 09:50 Urine pH 5.0 (5.0-7.0) 05/26/21 09:50 Ur Specific [place] 1.014 (1.003-1.030) 05/26/21 09:50 Urine Protein 30 mg/dl mg/dL (Negative) 05/26/21 09:50 Urine Glucose (UA) Neg mg/dL (Negative) 05/26/21 09:50 Urine Ketones Neg mg/dL (Negative) 05/26/21 09:50 Urine Blood Sm (Negative) 05/26/21 09:50 Urine Nitrite Neg (Negative) 05/26/21 09:50 Urine Bilirubin Neg (Negative) 05/26/21 09:50 Urine Urobilinogen < 2.0 mg/dL (<2.0) 05/26/21 09:50 Ur Leukocyte Esterase Tr (Negative) 05/26/21 09:50 Urine WBC (Auto) 38.0 /HPF (0.0-6.0) H 05/26/21 09:50 Urine RBC (Auto) 5.0 /HPF (0.0-6.0) 05/26/21 09:50 U Epithel Cells (Auto) 1.0 /HPF (0-13.0) 05/23/21 16:30 Urine Bacteria (Auto) 1+ /HPF (Negative) 05/23/21 16:30 Uric Acid Crystals Few 05/09/21 00:40 Triple Phos Crystals 2+ 05/09/21 13:22 Amorphous Crystals 3+ 05/26/21 09:50 Granular Casts 20 /LPF 05/26/21 09:50 Urine Mucus Few /HPF 05/23/21 16:30 Urine Creatinine 100.1 mg/dL (0.1-20.0) H 05/23/21 16:30 Protein/Creatinin Ratio 0.42 05/10/21 11:03 Urine Sodium 25 mmol/L 05/23/21 16:30 Fraction Sodium Excret 0.3 05/23/21 16:30 Urine Total Protein 42 mg/dL (5-11.8) H 05/10/21 11:03 Vancomycin Trough 15.4 ug/mL (5.0-20.0) 05/29/21 14:15 Urine Opiates Screen Negative 05/04/21 Unknown Urine Methadone Screen Negative 05/04/21 Unknown Ur Barbiturates Screen Negative 05/04/21 Unknown Ur Phencyclidine Scrn Negative 05/04/21 Unknown Ur Amphetamines Screen Positive 05/04/21 Unknown U Benzodiazepines Scrn Negative 05/04/21 Unknown Urine Cocaine Screen Negative 05/04/21 Unknown U Marijuana (THC) Screen Negative 05/04/21 Unknown Drugs of Abuse Note Disclamer 05/04/21 Unknown Immunofix Electrophor see below 05/05/21 03:40 AUDRA Screen Negative (Negative) 05/05/21 03:40 Proteinase 3 (PR3) Ab <1.0 AI (<1.0) 05/05/21 03:40 Myeloperoxidase Ab <1.0 AI (<1.0) 05/05/21 03:40 Complement C3 72 mg/dL (82-185) L 05/05/21 03:40 Complement C4 17 mg/dL (15-53) 05/05/21 03:40 Coronavirus (PCR) Positive (Negative) A 05/05/21 08:30 Hepatitis A IgM Ab Non-reactive (NonReactive) 05/05/21 03:40 Hep Bs Antigen Non-reactive (Negative) 05/05/21 03:40 Hep B Core IgM Ab Non-reactive (NonReactive) 05/05/21 03:40 Hepatitis C Antibody Reactive (NonReactive) A 05/05/21 03:40 Blood Type O POSITIVE 05/23/21 07:12 Antibody Screen Negative 05/23/21 07:12 Crossmatch See Detail 05/23/21 07:12 [place]/IV: Voiding Method Indwelling Catheter Active Medications - Current Medications Current Medications: Generic Name Dose Route Start Last Admin Trade Name Freq PRN Reason Stop Dose Admin Acetaminophen 650 mg 05/04/21 12:34 06/03/21 02:06 Acetaminophen 325 Mg Tab PO 650 mg Q4H PRN Administration Pain MILD(1-3)/Fever >100.5/MARIA Acetaminophen 650 mg 05/07/21 16:00 05/11/21 16:25 Acetaminophen 650 Mg Rect Supp RI 650 mg Q4H PRN Administration Pain, Mild (1-3) Atorvastatin Calcium 40 mg 05/09/21 22:00 06/02/21 21:48 Atorvastatin 40 Mg Tab FEEDTUBE 40 mg QHS RISHI Administration Dextrose 0 ml 05/09/21 10:49 05/14/21 06:55 Dextrose 10% *Hypoglycemia IV 250 ml PRN PRN Administration Hypoglycemia Fentanyl 50 mcg 05/23/21 15:00 Fentanyl 100 Mcg/2 Ml Inj IV Q10MIN PRN ANALGESIA Haloperidol Lactate 5 mg 05/09/21 18:32 05/18/21 19:52 Haloperidol Lactate 5 Mg/1 Ml Inj IV 5 mg Q6H PRN Administration Agitation Heparin Sodium (Porcine) 5,000 unit 05/27/21 22:00 06/02/21 21:48 Heparin 5,000 Unit/1 Ml Vial SUB-Q 5,000 unit Q12HR RISHI Administration Hydralazine HCl 50 mg 05/04/21 14:00 06/03/21 05:10 Hydralazine 25 Mg Tab PO 50 mg Q8HR RISHI Administration Hydrophilic Ointment 1 applic 05/05/21 15:21 Lip Therapy Vaseline TP Q2HR PRN Dry Lips Fentanyl Citrate 2,000 mcg in 100 mls @ 4.082 mls/hr 05/23/21 15:00 06/02/21 18:54 Fentanyl Drip Premix IV 0.5 mcg/kg/hr TITR RISHI 2.041 mls/hr Administration Protocol 1 MCG/KG/HR Insulin Human Lispro 0 unit 05/10/21 09:40 05/12/21 16:49 Insulin Lispro 100 Unit/Ml SUB-Q 2 unit Q6HR PRN Administration Hyperglycemia Protocol Labetalol HCl 10 mg 05/15/21 10:24 05/25/21 08:15 Labetalol 20 Mg/4 Ml Inj IV 10 mg Q4H PRN Administration sbp> 160. Lansoprazole 30 mg 05/26/21 10:00 06/02/21 21:48 Lansoprazole 30 Mg Solutab FEEDTUBE 30 mg BID RISHI Administration Metoprolol Tartrate 50 mg 05/26/21 08:00 06/02/21 20:39 Metoprolol Tartrate 25 Mg Tab FEEDTUBE 50 mg TID RISHI Administration Multi-Ingred Cream/Lotion/Oil/Oint 1 applic 05/05/21 15:21 Mineral Oil/Petrolatum, White Ophth Oint 3.5 Gm OU Q4HR PRN Dry Eye(s) Ondansetron HCl 4 mg 05/04/21 12:34 05/04/21 21:51 Ondansetron 4 Mg/2 Ml Inj IV 4 mg Q8H PRN Administration Nausea And Vomiting Oxycodone HCl 5 mg 05/30/21 11:00 05/30/21 14:55 Oxycodone 5 Mg Tab PO 5 mg Q6H PRN Administration Pain, Moderate (4-6) Polyethylene Glycol 17 gm 05/26/21 22:00 06/02/21 21:49 Polyethylene Glycol 3350 17 Gm Powder PO Not Given QHS RISHI Senna/Docusate Sodium 1 tab 05/05/21 22:00 06/02/21 21:48 Sennosides/Docusate Sodium 8.6/50 Mg Tab FEEDTUBE 1 tab BID RISHI Administration Sodium Chloride 10 ml 05/04/21 22:00 06/02/21 21:49 Sodium Chloride 0.9% 10 Ml Flush Syringe IV 10 ml BID RISHI Administration Sodium Chloride 10 ml 05/04/21 12:34 05/06/21 13:59 Sodium Chloride 0.9% 10 Ml Flush Syringe IV 10 ml PRN PRN Administration LINE FLUSH Sodium Chloride 10 ml 05/09/21 09:46 Sodium Chloride 0.9% 50 Ml Ivpb IV PRN PRN FLUSH Nutrition/Malnutrition Assess - Dietary Evaluation Nutrition/Malnutrition Findings: Nutrition Notes Start: 05/05/21 16:15 Freq: Status: Active Protocol: Document 05/27/21 15:02 ROSAURA (Rec: 05/27/21 15:07 ROSAURA [id number]) Nutrition Notes Initial or Follow up Reassessment Current Diagnosis Acute Kidney Injury, Hypertension,Heart Failure, Respiratory Failure Other Pertinent Diagnosis Severe COVID-19 pneu, metabolic encephalopathy, polysubstance dependence Current Diet TF - Nepro at 45ml/hr Labs/Tests BUN 56 Cr 1.8 Pertinent Medications Miralax Height 5 ft 7 in Weight 81.647 kg [place] Body Weight (kg) 67.27 BMI 28.1 Weight Status Overweight Subjective/Other Information Pt re-intubated on 05/23; rectal tube in place as well. Trach /PEG placement pending; awaiting family consent. Per RN, pt tolerating TF at goal rate. Percent of energy/protein needs met: 100% energy 89% pro Burn Absent Trauma Absent #1 Nutrition Diagnosis Inadequate oral intake Diagnosis Progress(for reassessment Continues documentation) Is patient on ventilator? Yes Is Patient Ambulatory and/or Out of Bed No REE-([place]-St. Jeor-confined to bed) 9622.608 Calculation [facility]ations [facility] Additional Notes Pro needs 1.2-2g/k-163g/ day Fluid needs 1ml/kcal Nutrition Intervention Nutrition Support: Continue Nepro at 45ml/hr with 200ml water flush q4h. Kcal 1,944 Protein (gm) 87 Carbohydrates (gm) 174 Fat (gm) 104 Fluid (mL) 785 Fiber (gm) 14 Goal #1 TF tolerance Goal #2 TF to meet at least 75% energy and pro needs Follow-Up By: 06/03/21 Additional Comments F/U: vent status, stable TF, trach/PEG placement
--- NOTE | 2021-06-02 13:38 | Progress Note ---
Assessment and Plan Cultures: Blood culture 05/07/2021 no growth so far Blood culture 05/10/2021 no growth so far Sputum culture 05/16/2021 Enterobacter 05/23/2021 tracheal aspirate culture: Enterobacter 05/26/2021 blood culture: Usual respiratory myra 05/26/2021 urine culture: No growth 05/26/2021 blood culture: No growth A/P: 56 yo M PMHx smoking, A. fib, HTN, medication non-compliance admitted with #Severe COVID-19 pneumonia: Patient presented with a week of symptoms, chest x- ray with diffuse bilateral infiltrates, admission O2 sats decreased on room air. Inflammatory markers elevated. Was not a candidate for Remdesivir. Completed steroids. #Acute hypoxemic respiratory failure: secondary to COVID-19 infection. On the vent. #VAP: Cultures with Enterobacter, s/p ertapenem. #YE: Renally dose medications. Improved. #Acute anemia #Urinary tox screen positive for amphetamines Recommendations: -completed abx Will sign off. Please call / reconsult if needed. Rhonda Mooney MD, FACP, [facility] ([facility] O: [phone] F: [phone] Subjective Date of service: 06/02/21 Principal diagnosis: AHRF; COVID-19 infection; NSTEMI; YE; HFrEF (35-40%); Polysubstance abuse Interval history: Remains afebrile, on the vent. Completed abx. Objective - Exam Narrative Exam: Physical Exam: Constitutional: opens eyes, intubated, on the vent Head, Ears, Nose: Normocephalic, atraumatic. External ears, nose normal Eyes: Conjunctivae/corneas clear. No icterus. No ptosis. Neck: intubated Oral: intubated Cardiovascular: S1, S2 + Respiratory: AE fair bilaterally and equal GI: Soft, bowel sounds + Musculoskeletal: No pedal edema, no cyanosis. Skin: No rash or abscess Hem/Lymphatic: No palpable cervical or supraclavicular nodes. No lymphangitis Psych: no agitation Neurological: opens eyes, intubated, on the vent, exam limited - Constitutional Vitals: Vital Signs Temp Pulse Resp BP Pulse Ox 99.5 F 65 10 L 146/90 99 06/02/21 11:35 06/02/21 11:16 06/02/21 11:16 06/02/21 11:16 06/02/21 11:16 Temperature -Last 24 Hours Temperature 99.5 F Temperature 99.0 F Temperature 99.1 F Temperature 98.8 F Temperature 98.8 F Temperature 99.4 F - Labs CBC & Chem 7: 06/01/21 04:56 06/02/21 04:06 Labs: Abnormal lab results 06/01/21 06/01/21 06/02/21 Range/Units 15:50 23:19 04:06 BUN 46 H (9-20) mg/dL Glucose 121 H (75-100) mg/dL POC Glucose 111 H 117 H (70-105) mg/dL 06/02/21 06/02/21 Range/Units 05:08 11:06 BUN (9-20) mg/dL Glucose (75-100) mg/dL POC Glucose 120 H 119 H (70-105) mg/dL
[2021-06-02] MEDS: fentaNYL DRIP Premix 2,000 MCG/100 ML BAG IV SCH (18:54)
[2021-06-02] MEDS: POLYETHYLENE GLYCOL 3350 17 GM POWDER PO SCH (21:49)
[2021-06-03] MEDS: ACETAMINOPHEN 325 MG TAB PO PRN (02:06)
[2021-06-03] MEDS: hydrALAZINE 25 MG TAB PO SCH ×3 (05:10→21:56)
[2021-06-03 05:38] LABS: Calcium 8.6 mg/dL (8.4-10.2)
[2021-06-03 05:49] LABS: Hematocrit 31.3 % (35.5-45.6); Mean Corpuscular HGB Conc 32 % (32-34); Mean Corpuscular Volume 92 fl (84-94); Platelet Count 463 K/mm3 (140-440)
[2021-06-03] MEDS: METOPROLOL TARTRATE 25 MG TAB FEEDTUBE SCH ×3 (09:30→21:25)
[2021-06-03] MEDS: LANSOPRAZOLE 30 MG SOLUTAB FEEDTUBE SCH ×2 (09:31→21:56)
[2021-06-03] MEDS: SENNOSIDES/DOCUSATE SODIUM 8.6/50 MG TAB FEEDTUBE SCH ×2 (09:31→21:57)
[2021-06-03] MEDS: HEPARIN 5,000 UNIT/1 ML VIAL SUB-Q SCH ×2 (09:32→21:56)
--- NOTE | 2021-06-03 11:37 | Progress Note ---
<JANUSZ PETERSEN - Last Filed: 06/03/21 16:04> Assessment and Plan Assessment and plan: This is a homeless 56-year-old male with past medical history of nicotine and cocaine abuse, atrial fibrillation, hypertension and chronic medication noncompliance admitted for acute hypoxic respiratory failure 2/2 COVID pneumonia s/p X3 intubation. Remains in the ICU on ventilatory support. Hospital Course to Date: 05/04/2021. Cardiology was considering patient for [employer]. However, patient with elevated creatinine therefore will hold off on cath evaluation. Nephrology consultation for acute kidney injury. Etiology likely secondary to vasomotor nephropathy/dehydration. We will start IV fluid hydration. Check renal ultrasound to rule out obstructive uropathy. We will resume home medications for the accelerated hypertension 05/05/2021. Echocardiogram reveals EF 35-40% with moderate concentric left ventricular hypertrophy. Moderate global hypokinesis of left ventricle. Mild mitral regurgitation. Mild pulmonary hypertension. Troponins are believed to be elevated in the setting of acute kidney injury. No beta-blockers due to cocaine use continue heparin and nitro drip. Continue CIWA protocol. Await urine studies 05/06/2021. Patient decompensated yesterday with worsening respiratory failure and difficulty to protect airway. Patient was breathing sonorously, and hypoxic. Patient was intubated and currently is on mechanical ventilation. Patient with AC mode ventilation rate of 20, tidal volume 450, FiO2 40% and PEEP of 6. COVID PCR testing on 05/05/2021 was found to be positive. Echocardiogram completed on this admission shows worsening EF from August 2020. Echocardiogram now reveals moderate concentric left ventricular hypertrophy with moderate global hypokinesis and EF of 35-40%. Mild pulmonary hypertension. 05/08: Continue current management, renal stable, LFTs stable and if improved will start on statin therapy. 05/09: Patient is febrile, will panculture, PSV today. CRP pending. Mucoid discharge noted from meatus which was sent for culture. Hypernatremia persists, free water flushes increased 05/10: PSV trial per CCM, T-max 102.3, given mildly elevated procalcitonin started on ceftriaxone 2 g every 24 for 2 days per ID. Overnight patient had atrial fibrillation which was treated with Cardizem drip and converted to sinus rhythm. Metoprolol p.o. increased to 3 times daily. 05/11: Patient still running fevers and if still febrile tomorrow will escalate to cefepime per ID as he is currently on ceftriaxone, CCM attempted PSV but patient became agitated and was switched back to pressure control. Lower extremity ultrasound shows acute DVT and started on heparin drip. Started on scheduled Librium. Patient remains with hypernatremia and elevated creatinine and on IV fluids. Free water flushes adjusted. Started on vancomycin today 05/12: Patient placed on pressure support trial without fentanyl, hypernatremia improving, hyperkalemia noted. Slight improvement to renal function. 05/13: Patient was extubated today, ID change antibiotics to Zosyn for Enterococcus, was started tapering Librium in the morning, renal function slightly improved. Possible transfer to floor tomorrow. ST evaluation for swallow ordered. 05/14: Patient became hypoglycemic overnight and started on dextrose IV fluids. Accu-Chek fingersticks have been low but on a.m. BMP patient blood glucose is 100. Other BMP pending. Feeding tube replaced due to need for enteral access and patient being severely confused. Renal functions remains the same. Upon confirmation will restart tube feedings, p.o. medications and free water flushes. 05/15: Remains confused/somnolent on my encounter. Librium taper in 24hrs per PCCM recs. Remains hypertensive. Added amlodipine 10 mg NG and labetalol prn. ST eval today but doubt he will participate. Potassium replaced. Renal function improving overall, however, hypernatremic. Inc TF FWF to 250 cc q4hr. 05/16: Respiratory distress this AM, hypoxic in 60's not protecting airway. Required intubation, patient now ICU patient. Reduce fluid to FWF only, IVF d/c off jun. CXR ordered demonstrates pulmonary edema. Lasix 40 mg IV bid ordered. Troponin elevated, continue heparin gtt. Would recommend decreasing sedating medications at this point, agree with librium taper. 05/17: Patient remains on the vent and sedated, RASS -3. Plan for possible sedation vacation today. D/w CCM plan to wean for possible extubation on the v ent. 2: Tolerated 4hrs of sedation vacation yesterday, on low dose fentanyl this am. Patient is tolerating PST this am. Plan to wean off sedation and wean vent setting for possible extubation today. 2/3: s/p extubation now stable on 3L NC. Lethargic this am, will decreased Seroquel. Speech consult for swallow eval, continue enteral nutrition via NGT for now. Hypertensive throughout the night, Norvac added. Remains on heparin gtt for DVT, might need to transition to PO AC, will d/w CCM. Patient is stable for transfer to [facility] 05/20: Continue sepsis work up considering fever, aspiration precautions. Discussed with nursing staff will hold am seroquel. Continue tube feed. RENAL Function remains relatively stable, possible has peaked. 05/21: Patient seen and examined, resting but still with mild increase wob, CXR concerning with right lobar infiltrate, continue antibiotics, will give kayxalate in addition due to hyperkalemia, Will discuss with ID due to rising lobito ekocytosis possible worsening sepsis. 05/22: Patient remains on BIPAP, still sedated appearing, cxr concerning for possible aspiration, unfortunately still worsening renal status. Will continue abx and continue collaboration with pulmonary team to ensure no over sedation. Continue abx, will add kayaxlate 05/23: Patient noted to have severe anemia today, will initiate GI work up and also Hemolysis work up. Will discuss with Vascular about possible IVC filter placement. Continue BIPAP, goal is to see if we can avert re-intubation. Transfuse 1 UNIT PRBC, Will discuss with Pulmonary about holding Eliquis for now. Renal failure still ongoing. 05/24: Patient had a positive occult and was anemic again today and received PRBC. GI was consulted. Repeat Dopplers are negative for DVT vascular recommends a CT/SQ heparin if tolerated and nephrology would like to increase IV fluids per FeNa results. Decrease metoprolol, seroquel and librium. surgery consult for trach/peg 05/25: RT decreased FiO2. GI signed off, Cr slightly improved, Anemia improved. Tmax 101.4 noted, abx per ID. 05/26: Patient had a temperature spike and was recultured, no plan today changes made as patient continues to breathe over the vent, one time dose of fent patch, repeat dopllar in 1 week per [facility], miralax q hs 05/27: Added vancomycin per ID, started CPAP trials, prophylactic heparin, IV fluids stopped per ID. 05/28: No acute events reported overnight, T-max 100.6, slight improvement to BUN/creatinine. awaiting trach & PEG 05/29: Creatinine continues trending down, remains on minimal vent settings. CPAP as tolerated. 05/30: Patient remains lethargic, opened eyes and tracking this am. Librium will end tonight and decrease seroquel for now. PRN analgesics added for pain management. Patient remains with intermittent fevers, BLE doppler neg for DVT, recent cultures with NGTD, continue current IV abx per ID. LUE swelling noted, LUE doppler pending. Trach and PEG is now on hold, case management is trying to get in contact with a living relative for consent. 05/31: Low dose sedation initiated yesterday due to increase work of breathing and high RR. Patient is stable this am, appears comfortable, tolerating PST. LUE doppler noted with superficial thrombosis in the left cephalic and basilic veins, continue AC- heparin SubQ. 06/01: Off sedation this am for sedation vacation. Still drowsy, however, more alert and following simple commands. Seroquel held overnight and this am, will D/C for now. Tolerating PST this am 06/02: Back on low dose fentanyl, remains awake and tracking. Continue to tolerate PST this am. Still no living relatives have been located for patient at this time. This is day-10 since reintubation, d/w CCM possible two physicians consent for Trach and PEG is warranted at this time since we can't get in contact with a living relative and the dow of stated process is still pending. 06/03: HUSSEIN overnight. Patient's brother, Mingo Harrison, was located and visited patient today. Patient's condition and status was thoroughly discuss to patient's family by the attending at the bedside. Patient's brother verbalized understanding of the info given, however, he would like 24hrs or so to discuss everything with his other brother before making a decision. Patient remains a full code and we will hold off on re-consulting General Surgery until a final decision is made. Continue daily PST as tolerated. Patient next of kin- Mingo Harrison . Assessment and Plan #Neuro: Metabolic encephalopathy #Polysubstance Abuse -UDS positive for amphetamines -On CIWA protocol -Librium end tonight -Seroquel on hold -Monitor QTc -Avoid delirium -PRN analgesia added for pain management -We will need cessation counseling when appropriate #Cardio:Heart failure reduced EF #Cardiomyopathy #Paroxysmal atrial fibrillation #S/p hypertensive emergency, h/o HTN -Continue beta-sylvia, aspirin, statin, hydral, titrate as needed -Cardiology consulted, appreciate recommendations -Echo 05/04/2021-EF 35 to 40%. Moderate concentric LVH. Moderate global hypokinesis of left ventricle. Mild mitral regurgitation. Mild pulmonary hypertension. -Echocardiogram reviewed (08/27/2020): LVEF is 50 to 55%. Mild to moderate concentric LVF. Severe diastolic dysfunction is present (restrictive filling). Right ventricle is mildly hypokinetic. RVSP is 48 mmHg. No valvular abnormalities. -S/p Cardizem drip for atrial fibrillation -Blood pressure monitoring per protocol #Respiratory:Acute Hypoxic respiratory failure -S/p X3 intubation -CCM consulted, appreciate recommendations -Intubated on 05/05 in the ED and extubated 05/13, Re-intubated on 05/16 and Extubated on 05/18 -Reintubated 05/23 -Vent setting:CPAP-25%,6 PS-15 -CCM consulted, appreciate recommendations -VAP bundle addressed -Aspiration precaution HOB above 30 -Daily SBT and SAT trials as tolerated -PRN ABG and CXR per CCM -Continue SPO2 monitoring for SPO2 goal above 92% -Need to be trach and PEG- Currently on hold, trying to get in contact with a living relative for consent #Acute kidney injury likely secondary to vasomotor nephropathy -Nephrology consulted, appreciate recommendations -Renal ultrasound completed: 1.7 hyper echoic mass within the left upper pole, continue to monitor and follow-up with CT once stable -Strict intake and output -Avoid nephrotoxic medications; Renally dose medications -Monitor and replace electrolytes as needed -Trend BMP #Transaminitis, h/o hepatitis C -LFT with some mild improvement -Continue to trend LFTs #ID:Severe COVID-19 pneumonia, Enterobacter aerogenes PNA, s/p Enterococcus faecalis UTI -Infectious disease consulted, appreciate recommendations -COVID-19 PCR positive -s/p droplet/precautions for 21 days -Not a candidate for remdesivir given acute kidney injury -s/p Dexamethasone for 10 days -Anticoagulation per hospital protocol -Trend COVID-19 from 2 markers (ferritin, D-dimer, CRP, LDH) -05/09 urine culture with Enterococcus faecalis -05/16 tracheal aspirate with Enterobacter aerogenes -per ID Due to persistent fevers switched cefepime to IV ertapenem renally adjusted 05/24 -GC negative -f/u culture data -re-cultured 05/26 #Heme: Anemia, Acute DVT (resolved) -Bilateral lower extremity Doppler ultrasound shows acute DVT -heparin gtt converted to DOAC but now d/c -vascular surgery consulted for possible IVC filter placement, appreciate recommendations -repeat doppler shows no DVT -05/30 LUE doppler noted with superficial thrombosis in the left cephalic and basilic veins -subq heparin for prophylaxis -Pulmonary perfusion study showed low probability of pulmonary embolism -S/p 3 unit PRBC -Trend CBC -Transfuse for hemoglobin less than 7 The high probability of a clinically significant, sudden or life threatening deterioration of the [cardio/resp] system(s) required my full and direct attent ion, intervention and personal management. The aggregate critical care time was [60] minutes. This time is in addition to time spent performing reported procedures but includes the following: [x] Data Review and interpretation [x] Patient assessment and monitoring of vital signs [x] Documentation [x] Medication orders and management Disposition Plan: ICU Total Time Spent with Patient (Minutes): 60 History Interval history: Patient seen and examined at the bedside. Remains on the vent and low dose fentanyl. Open eyes spontaneously and tracking. HUSSEIN overnight Hospitalist Physical - Constitutional Vitals: Temp Pulse Resp BP Pulse Ox 99.3 F 67 18 120/79 97 06/03/21 11:25 06/03/21 11:29 06/03/21 11:00 06/03/21 11:29 06/03/21 11:29 General appearance: Present: no acute distress, other (Intubated) - EENT Eyes: Present: PERRL ENT: hearing intact - Neck Neck: Present: normal ROM - Respiratory Respiratory effort: normal Respiratory: bilateral: rhonchi - Cardiovascular Rhythm: regular Heart Sounds: Present: S1 & S2 - Extremities Extremities: no ischemia, pulses intact, pulses symmetrical Extremity abnormal: edema - Peripheral Assessment Generalized Edema Type: Non-pitting Edema Degree: 2+ Capillary Refill: < 3 seconds Skin Temperature: Warm Peripheral Pulses: within normal limits - Abdominal General gastrointestinal: soft, non-distended, normal bowel sounds - Integumentary Integumentary: Present: warm, dry - Psychiatric Psychiatric: cooperative - Neurologic Neurologic: moves all extremities - Allied Health Allied health notes reviewed: nursing, case management HEART Score - HEART Score EKG: Non-specific Age: 45-65 Risk factors: 1-2 risk factors Troponin: Troponin T 0.400 ng/mL (0.00-0.029) H* D 05/16/21 18:40 Troponin: 1-3x normal limit - Critical Actions Critical Actions: 4-6 pts:12-16.6% risk of adverse cardiac event. Should be admitted Results - Labs CBC & Chem 7: 06/03/21 04:15 06/03/21 04:15 Labs: Laboratory Last Values WBC 11.0 K/mm3 (4.5-11.0) 06/03/21 04:15 RBC 3.40 M/mm3 (3.65-5.03) L 06/03/21 04:15 Hgb 10.0 gm/dl (11.8-15.2) L 06/03/21 04:15 Hct 31.3 % (35.5-45.6) L 06/03/21 04:15 MCV 92 fl (84-94) 06/03/21 04:15 MCH 30 pg (28-32) 06/03/21 04:15 MCHC 32 % (32-34) 06/03/21 04:15 RDW 16.0 % (13.2-15.2) H 06/03/21 04:15 Plt Count 463 K/mm3 (140-440) H 06/03/21 04:15 Lymph % (Auto) Salon Receptionist 05/16/21 10:21 Izard % (Auto) Salon Receptionist 05/16/21 10:21 Eos % (Auto) Salon Receptionist 05/16/21 10:21 Baso % (Auto) Salon Receptionist 05/16/21 10:21 Lymph # (Auto) Salon Receptionist 05/16/21 10:21 Izard # (Auto) Salon Receptionist 05/16/21 10:21 Eos # (Auto) Salon Receptionist 05/16/21 10:21 Baso # (Auto) Salon Receptionist 05/16/21 10:21 Add Manual Diff Complete 05/28/21 04:04 Total Counted 100 05/28/21 04:04 Seg Neutrophils % Salon Receptionist 05/16/21 10:21 Seg Neuts % (Manual) 93.0 % (40.0-70.0) H 05/28/21 04:04 Band Neutrophils % 1.0 % 05/28/21 04:04 Lymphocytes % (Manual) 2.0 % (13.4-35.0) L 05/28/21 04:04 Reactive Lymphs % (Man) 0 % 05/28/21 04:04 Monocytes % (Manual) 4.0 % (0.0-7.3) 05/28/21 04:04 Eosinophils % (Manual) 0 % (0.0-4.3) 05/28/21 04:04 Basophils % (Manual) 0 % (0.0-1.8) 05/28/21 04:04 Metamyelocytes % 0 % 05/28/21 04:04 Myelocytes % 0 % 05/28/21 04:04 Promyelocytes % 0 % 05/28/21 04:04 Blast Cells % 0 % 05/28/21 04:04 Nucleated RBC % Not Reportable 05/28/21 04:04 Seg Neutrophils # Salon Receptionist 05/16/21 10:21 Seg Neutrophils # Man 13.1 K/mm3 (1.8-7.7) H 05/28/21 04:04 Band Neutrophils # 0.1 K/mm3 05/28/21 04:04 Lymphocytes # (Manual) 0.3 K/mm3 (1.2-5.4) L 05/28/21 04:04 Abs React Lymphs (Man) 0.0 K/mm3 05/28/21 04:04 Monocytes # (Manual) 0.6 K/mm3 (0.0-0.8) 05/28/21 04:04 Eosinophils # (Manual) 0.0 K/mm3 (0.0-0.4) 05/28/21 04:04 Basophils # (Manual) 0.0 K/mm3 (0.0-0.1) 05/28/21 04:04 Metamyelocytes # 0.0 K/mm3 05/28/21 04:04 Myelocytes # 0.0 K/mm3 05/28/21 04:04 Promyelocytes # 0.0 K/mm3 05/28/21 04:04 Blast Cells # 0.0 K/mm3 05/28/21 04:04 WBC Morphology Not Reportable 05/28/21 04:04 Hypersegmented Neuts Not Reportable 05/28/21 04:04 Hyposegmented Neuts Not Reportable 05/28/21 04:04 Hypogranular Neuts Not Reportable 05/28/21 04:04 Smudge Cells Not Reportable 05/28/21 04:04 Toxic Granulation Not Reportable 05/28/21 04:04 Toxic Vacuolation Not Reportable 05/28/21 04:04 Dohle Bodies Not Reportable 05/28/21 04:04 Pelger-Huet Anomaly Not Reportable 05/28/21 04:04 Jesse Rods Not Reportable 05/28/21 04:04 Platelet Estimate Consistent w auto 05/28/21 04:04 Clumped Platelets Not Reportable 05/28/21 04:04 Plt Clumps, EDTA Not Reportable 05/28/21 04:04 Large Platelets Not Reportable 05/28/21 04:04 Giant Platelets Not Reportable 05/28/21 04:04 Platelet Satelliting Not Reportable 05/28/21 04:04 Plt Morphology Comment Not Reportable 05/28/21 04:04 RBC Morphology Not Reportable 05/28/21 04:04 Dimorphic RBCs Not Reportable 05/28/21 04:04 Polychromasia Not Reportable 05/28/21 04:04 Hypochromasia Not Reportable 05/28/21 04:04 Poikilocytosis Not Reportable 05/28/21 04:04 Anisocytosis 1+ 05/28/21 04:04 Microcytosis Not Reportable 05/28/21 04:04 Macrocytosis Not Reportable 05/28/21 04:04 Spherocytes Not Reportable 05/28/21 04:04 Pappenheimer Bodies Not Reportable 05/28/21 04:04 Sickle Cells Not Reportable 05/28/21 04:04 Target Cells Not Reportable 05/28/21 04:04 Tear Drop Cells Not Reportable 05/28/21 04:04 Ovalocytes Not Reportable 05/28/21 04:04 Helmet Cells Not Reportable 05/28/21 04:04 Murphy-Albee Bodies Not Reportable 05/28/21 04:04 [place] Rings Not Reportable 05/28/21 04:04 [place] Cells Not Reportable 05/28/21 04:04 Bite Cells Not Reportable 05/28/21 04:04 Crenated Cell Not Reportable 05/28/21 04:04 Elliptocytes Not Reportable 05/28/21 04:04 Acanthocytes (Spur) Not Reportable 05/28/21 04:04 Rouleaux Not Reportable 05/28/21 04:04 Hemoglobin C Crystals Not Reportable 05/28/21 04:04 Schistocytes Not Reportable 05/28/21 04:04 Malaria parasites Not Reportable 05/28/21 04:04 Tomi Bodies Not Reportable 05/28/21 04:04 Haptoglobin 254 mg/dL (43-212) H 05/23/21 18:54 Hem Pathologist Commnt No 05/28/21 04:04 PT 14.9 Sec. (12.2-14.9) 05/25/21 04:25 INR 1.05 (0.87-1.13) 05/25/21 04:25 APTT 72.5 Sec. (24.2-36.6) H* 05/19/21 19:36 D-Dimer 2730.61 ng/mlDDU (0-234) H 05/12/21 07:19 Heparin Anti-Xa Level 0.47 U.I./ml (0.3-0.7) 05/19/21 05:23 ABG pH 7.443 pH Units (7.350-7.450) 05/27/21 09:20 ABG pCO2 38.8 mm Hg 05/27/21 09:20 ABG pO2 115.2 mm Hg (80.0-90.0) H 05/27/21 09:20 ABG HCO3 25.9 mmol/L (20.0-26.0) 05/27/21 09:20 ABG O2 Saturation 98.3 % (95.0-99.0) 05/27/21 09:20 ABG O2 Content 12.5 (0.0-44) 05/27/21 09:20 ABG Base Excess 1.7 mmol/L (-2.0-3.0) 05/27/21 09:20 ABG Hemoglobin 9.2 gm/dl (14.0-18.0) L 05/27/21 09:20 ABG Carboxyhemoglobin 2.2 % (0.0-5.0) 05/27/21 09:20 ABG Methemoglobin 0.7 % (0.0-1.5) 05/27/21 09:20 Oxyhemoglobin 95.4 % (95.0-99.0) 05/27/21 09:20 FiO2 30 % 05/27/21 09:20 Sodium 140 mmol/L (137-145) 06/03/21 04:15 Potassium 4.0 mmol/L (3.6-5.0) 06/03/21 04:15 Chloride 102.5 mmol/L (98-107) 06/03/21 04:15 Carbon Dioxide 28 mmol/L (22-30) 06/03/21 04:15 Anion Gap 14 mmol/L 06/03/21 04:15 BUN 44 mg/dL (9-20) H 06/03/21 04:15 Creatinine 1.3 mg/dL (0.8-1.3) 06/03/21 04:15 Estimated GFR 57 ml/min 06/03/21 04:15 BUN/Creatinine Ratio 34 % 06/03/21 04:15 Glucose 115 mg/dL (75-100) H 06/03/21 04:15 POC Glucose 113 mg/dL (70-105) H 06/03/21 10:52 Lactic Acid 0.90 mmol/L (0.7-2.0) 05/20/21 09:17 Calcium 8.6 mg/dL (8.4-10.2) 06/03/21 04:15 Phosphorus 3.70 mg/dL (2.5-4.5) 06/01/21 04:56 Magnesium 2.10 mg/dL (1.7-2.3) 06/01/21 04:56 Iron 10 ug/dL (49-181) L 05/23/21 Unknown TIBC 151 mcg/dL (250-450) L 05/23/21 Unknown Ferritin 640.2 ng/mL (30.0-300.0) H 05/12/21 07:19 Total Bilirubin 0.50 mg/dL (0.1-1.2) 05/24/21 04:11 AST 152 units/L (5-40) H 05/24/21 04:11 ALT 125 units/L (7-56) H 05/24/21 04:11 Alkaline Phosphatase 72 units/L (35-129) 05/24/21 04:11 Lactate Dehydrogenase 311 units/L (91-180) H 05/23/21 Unknown Total Creatine Kinase 406 units/L (55-170) H 05/04/21 08:42 Troponin T 0.400 ng/mL (0.00-0.029) H* D 05/16/21 18:40 C-Reactive Protein 13.20 mg/dL (0.00-1.30) H 05/28/21 04:04 Total Protein 6.6 g/dL (6.3-8.2) 05/24/21 04:11 Albumin 2.5 g/dL (3.9-5) L 05/24/21 04:11 Albumin/Globulin Ratio 0.6 % 05/24/21 04:11 Triglycerides 144 mg/dL (2-149) 05/10/21 04:57 Cholesterol 140 mg/dL (50-199) 05/04/21 07:25 LDL Cholesterol Direct 89 mg/dL (50-130) 05/04/21 07:25 HDL Cholesterol 48 mg/dL (40-59) 05/04/21 07:25 Cholesterol/HDL Ratio 2.91 % 05/04/21 07:25 Procalcitonin 0.63 ng/mL (<0.15) 05/09/21 15:53 Urine Color Yellow (Yellow) 05/26/21 09:50 Urine Turbidity Turbid (Clear) 05/26/21 09:50 Urine pH 5.0 (5.0-7.0) 05/26/21 09:50 Ur Specific [place] 1.014 (1.003-1.030) 05/26/21 09:50 Urine Protein 30 mg/dl mg/dL (Negative) 05/26/21 09:50 Urine Glucose (UA) Neg mg/dL (Negative) 05/26/21 09:50 Urine Ketones Neg mg/dL (Negative) 05/26/21 09:50 Urine Blood Sm (Negative) 05/26/21 09:50 Urine Nitrite Neg (Negative) 05/26/21 09:50 Urine Bilirubin Neg (Negative) 05/26/21 09:50 Urine Urobilinogen < 2.0 mg/dL (<2.0) 05/26/21 09:50 Ur Leukocyte Esterase Tr (Negative) 05/26/21 09:50 Urine WBC (Auto) 38.0 /HPF (0.0-6.0) H 05/26/21 09:50 Urine RBC (Auto) 5.0 /HPF (0.0-6.0) 05/26/21 09:50 U Epithel Cells (Auto) 1.0 /HPF (0-13.0) 05/23/21 16:30 Urine Bacteria (Auto) 1+ /HPF (Negative) 05/23/21 16:30 Uric Acid Crystals Few 05/09/21 00:40 Triple Phos Crystals 2+ 05/09/21 13:22 Amorphous Crystals 3+ 05/26/21 09:50 Granular Casts 20 /LPF 05/26/21 09:50 Urine Mucus Few /HPF 05/23/21 16:30 Urine Creatinine 100.1 mg/dL (0.1-20.0) H 05/23/21 16:30 Protein/Creatinin Ratio 0.42 05/10/21 11:03 Urine Sodium 25 mmol/L 05/23/21 16:30 Fraction Sodium Excret 0.3 05/23/21 16:30 Urine Total Protein 42 mg/dL (5-11.8) H 05/10/21 11:03 Vancomycin Trough 15.4 ug/mL (5.0-20.0) 05/29/21 14:15 Urine Opiates Screen Negative 05/04/21 Unknown Urine Methadone Screen Negative 05/04/21 Unknown Ur Barbiturates Screen Negative 05/04/21 Unknown Ur Phencyclidine Scrn Negative 05/04/21 Unknown Ur Amphetamines Screen Positive 05/04/21 Unknown U Benzodiazepines Scrn Negative 05/04/21 Unknown Urine Cocaine Screen Negative 05/04/21 Unknown U Marijuana (THC) Screen Negative 05/04/21 Unknown Drugs of Abuse Note Disclamer 05/04/21 Unknown Immunofix Electrophor see below 05/05/21 03:40 AUDRA Screen Negative (Negative) 05/05/21 03:40 Proteinase 3 (PR3) Ab <1.0 AI (<1.0) 05/05/21 03:40 Myeloperoxidase Ab <1.0 AI (<1.0) 05/05/21 03:40 Complement C3 72 mg/dL (82-185) L 05/05/21 03:40 Complement C4 17 mg/dL (15-53) 05/05/21 03:40 Coronavirus (PCR) Positive (Negative) A 05/05/21 08:30 Hepatitis A IgM Ab Non-reactive (NonReactive) 05/05/21 03:40 Hep Bs Antigen Non-reactive (Negative) 05/05/21 03:40 Hep B Core IgM Ab Non-reactive (NonReactive) 05/05/21 03:40 Hepatitis C Antibody Reactive (NonReactive) A 05/05/21 03:40 Blood Type O POSITIVE 05/23/21 07:12 Antibody Screen Negative 05/23/21 07:12 Crossmatch See Detail 05/23/21 07:12 Merino/IV: Voiding Method Indwelling Catheter Active Medications - Current Medications Current Medications: Generic Name Dose Route Start Last Admin Trade Name Freq PRN Reason Stop Dose Admin Acetaminophen 650 mg 05/04/21 12:34 06/03/21 02:06 Acetaminophen 325 Mg Tab PO 650 mg Q4H PRN Administration Pain MILD(1-3)/Fever >100.5/MARIA Acetaminophen 650 mg 05/07/21 16:00 05/11/21 16:25 Acetaminophen 650 Mg Rect Supp GA 650 mg Q4H PRN Administration Pain, Mild (1-3) Atorvastatin Calcium 40 mg 05/09/21 22:00 06/02/21 21:48 Atorvastatin 40 Mg Tab FEEDTUBE 40 mg QHS RISHI Administration Dextrose 0 ml 05/09/21 10:49 05/14/21 06:55 Dextrose 10% *Hypoglycemia IV 250 ml PRN PRN Administration Hypoglycemia Fentanyl 50 mcg 05/23/21 15:00 Fentanyl 100 Mcg/2 Ml Inj IV Q10MIN PRN ANALGESIA Haloperidol Lactate 5 mg 05/09/21 18:32 05/18/21 19:52 Haloperidol Lactate 5 Mg/1 Ml Inj IV 5 mg Q6H PRN Administration Agitation Heparin Sodium (Porcine) 5,000 unit 05/27/21 22:00 06/03/21 09:32 Heparin 5,000 Unit/1 Ml Vial SUB-Q 5,000 unit Q12HR RISHI Administration Hydralazine HCl 50 mg 05/04/21 14:00 06/03/21 05:10 Hydralazine 25 Mg Tab PO 50 mg Q8HR RISHI Administration Hydrophilic Ointment 1 applic 05/05/21 15:21 Lip Therapy Vaseline TP Q2HR PRN Dry Lips Fentanyl Citrate 2,000 mcg in 100 mls @ 4.082 mls/hr 05/23/21 15:00 06/02/21 18:54 Fentanyl Drip Premix IV 0.5 mcg/kg/hr TITR RISHI 2.041 mls/hr Administration Protocol 1 MCG/KG/HR Insulin Human Lispro 0 unit 05/10/21 09:40 05/12/21 16:49 Insulin Lispro 100 Unit/Ml SUB-Q 2 unit Q6HR PRN Administration Hyperglycemia Protocol Labetalol HCl 10 mg 05/15/21 10:24 05/25/21 08:15 Labetalol 20 Mg/4 Ml Inj IV 10 mg Q4H PRN Administration sbp> 160. Lansoprazole 30 mg 05/26/21 10:00 06/03/21 09:31 Lansoprazole 30 Mg Solutab FEEDTUBE 30 mg BID RISHI Administration Metoprolol Tartrate 50 mg 05/26/21 08:00 06/03/21 09:30 Metoprolol Tartrate 25 Mg Tab FEEDTUBE 50 mg TID RISHI Administration Multi-Ingred Cream/Lotion/Oil/Oint 1 applic 05/05/21 15:21 Mineral Oil/Petrolatum, White Ophth Oint 3.5 Gm OU Q4HR PRN Dry Eye(s) Ondansetron HCl 4 mg 05/04/21 12:34 05/04/21 21:51 Ondansetron 4 Mg/2 Ml Inj IV 4 mg Q8H PRN Administration Nausea And Vomiting Oxycodone HCl 5 mg 05/30/21 11:00 05/30/21 14:55 Oxycodone 5 Mg Tab PO 5 mg Q6H PRN Administration Pain, Moderate (4-6) Polyethylene Glycol 17 gm 05/26/21 22:00 06/02/21 21:49 Polyethylene Glycol 3350 17 Gm Powder PO Not Given QHS RISHI Senna/Docusate Sodium 1 tab 05/05/21 22:00 06/03/21 09:31 Sennosides/Docusate Sodium 8.6/50 Mg Tab FEEDTUBE 1 tab BID RISHI Administration Sodium Chloride 10 ml 05/04/21 22:00 06/03/21 09:31 Sodium Chloride 0.9% 10 Ml Flush Syringe IV 10 ml BID RISHI Administration Sodium Chloride 10 ml 05/04/21 12:34 05/06/21 13:59 Sodium Chloride 0.9% 10 Ml Flush Syringe IV 10 ml PRN PRN Administration LINE FLUSH Sodium Chloride 10 ml 05/09/21 09:46 Sodium Chloride 0.9% 50 Ml Ivpb IV PRN PRN FLUSH Nutrition/Malnutrition Assess - Dietary Evaluation Nutrition/Malnutrition Findings: Nutrition Notes Start: 05/05/21 16:15 Freq: Status: Active Protocol: Document 05/27/21 15:02 ROSAURA (Rec: 05/27/21 15:07 ROSAURA [id number]) Nutrition Notes Initial or Follow up Reassessment Current Diagnosis Acute Kidney Injury, Hypertension,Heart Failure, Respiratory Failure Other Pertinent Diagnosis Severe COVID-19 pneu, metabolic encephalopathy, polysubstance dependence Current Diet TF - Nepro at 45ml/hr Labs/Tests BUN 56 Cr 1.8 Pertinent Medications Miralax Height 5 ft 7 in Weight 81.647 kg [place] Body Weight (kg) 67.27 BMI 28.1 Weight Status Overweight Subjective/Other Information Pt re-intubated on 05/23; rectal tube in place as well. Trach /PEG placement pending; awaiting family consent. Per RN, pt tolerating TF at goal rate. Percent of energy/protein needs met: 100% energy 89% pro Burn Absent Trauma Absent #1 Nutrition Diagnosis Inadequate oral intake Diagnosis Progress(for reassessment Continues documentation) Is patient on ventilator? Yes Is Patient Ambulatory and/or Out of Bed No REE-([facility]-confined to bed) [phone] Calculation Used for Recommendations [facility] Additional Notes Pro needs 1.2-2g/k-163g/ day Fluid needs 1ml/kcal Nutrition Intervention Nutrition Support: Continue Nepro at 45ml/hr with 200ml water flush q4h. Kcal 1,944 Protein (gm) 87 Carbohydrates (gm) 174 Fat (gm) 104 Fluid (mL) 785 Fiber (gm) 14 Goal #1 TF tolerance Goal #2 TF to meet at least 75% energy and pro needs Follow-Up By: 06/03/21 Additional Comments F/U: vent status, stable TF, trach/PEG placement <VIKRAM SAENZ - Last Filed: 06/04/21 07:09> Assessment and Plan Assessment and plan: I saw and evaluated the patient. I agree with the findings and the plan of care as documented in the Nurse Practitioner's~note, with the following corrections and additions. Spoke to patients brother and sister fay, 30 mins counselling on advance care planning. they will discuss with rest of the family and plan next steps. Hospitalist Physical - Constitutional Vitals: Temp Pulse Resp BP Pulse Ox 100.4 F H 88 19 151/103 98 06/04/21 03:22 06/04/21 06:20 06/04/21 06:00 06/04/21 06:20 06/04/21 05:25 HEART Score - HEART Score Troponin: Troponin T 0.400 ng/mL (0.00-0.029) H* D 05/16/21 18:40 Results - Labs CBC & Chem 7: 06/03/21 04:15 06/03/21 04:15 Labs: Laboratory Last Values WBC 11.0 K/mm3 (4.5-11.0) 06/03/21 04:15 RBC 3.40 M/mm3 (3.65-5.03) L 06/03/21 04:15 Hgb 10.0 gm/dl (11.8-15.2) L 06/03/21 04:15 Hct 31.3 % (35.5-45.6) L 06/03/21 04:15 MCV 92 fl (84-94) 06/03/21 04:15 MCH 30 pg (28-32) 06/03/21 04:15 MCHC 32 % (32-34) 06/03/21 04:15 RDW 16.0 % (13.2-15.2) H 06/03/21 04:15 Plt Count 463 K/mm3 (140-440) H 06/03/21 04:15 Lymph % (Auto) Salon Receptionist 05/16/21 10:21 Izard % (Auto) Salon Receptionist 05/16/21 10:21 Eos % (Auto) Salon Receptionist 05/16/21 10:21 Baso % (Auto) Salon Receptionist 05/16/21 10:21 Lymph # (Auto) Salon Receptionist 05/16/21 10:21 Izard # (Auto) Salon Receptionist 05/16/21 10:21 Eos # (Auto) Salon Receptionist 05/16/21 10:21 Baso # (Auto) Salon Receptionist 05/16/21 10:21 Add Manual Diff Complete 05/28/21 04:04 Total Counted 100 05/28/21 04:04 Seg Neutrophils % Salon Receptionist 05/16/21 10:21 Seg Neuts % (Manual) 93.0 % (40.0-70.0) H 05/28/21 04:04 Band Neutrophils % 1.0 % 05/28/21 04:04 Lymphocytes % (Manual) 2.0 % (13.4-35.0) L 05/28/21 04:04 Reactive Lymphs % (Man) 0 % 05/28/21 04:04 Monocytes % (Manual) 4.0 % (0.0-7.3) 05/28/21 04:04 Eosinophils % (Manual) 0 % (0.0-4.3) 05/28/21 04:04 Basophils % (Manual) 0 % (0.0-1.8) 05/28/21 04:04 Metamyelocytes % 0 % 05/28/21 04:04 Myelocytes % 0 % 05/28/21 04:04 Promyelocytes % 0 % 05/28/21 04:04 Blast Cells % 0 % 05/28/21 04:04 Nucleated RBC % Not Reportable 05/28/21 04:04 Seg Neutrophils # Salon Receptionist 05/16/21 10:21 Seg Neutrophils # Man 13.1 K/mm3 (1.8-7.7) H 05/28/21 04:04 Band Neutrophils # 0.1 K/mm3 05/28/21 04:04 Lymphocytes # (Manual) 0.3 K/mm3 (1.2-5.4) L 05/28/21 04:04 Abs React Lymphs (Man) 0.0 K/mm3 05/28/21 04:04 Monocytes # (Manual) 0.6 K/mm3 (0.0-0.8) 05/28/21 04:04 Eosinophils # (Manual) 0.0 K/mm3 (0.0-0.4) 05/28/21 04:04 Basophils # (Manual) 0.0 K/mm3 (0.0-0.1) 05/28/21 04:04 Metamyelocytes # 0.0 K/mm3 05/28/21 04:04 Myelocytes # 0.0 K/mm3 05/28/21 04:04 Promyelocytes # 0.0 K/mm3 05/28/21 04:04 Blast Cells # 0.0 K/mm3 05/28/21 04:04 WBC Morphology Not Reportable 05/28/21 04:04 Hypersegmented Neuts Not Reportable 05/28/21 04:04 Hyposegmented Neuts Not Reportable 05/28/21 04:04 Hypogranular Neuts Not Reportable 05/28/21 04:04 Smudge Cells Not Reportable 05/28/21 04:04 Toxic Granulation Not Reportable 05/28/21 04:04 Toxic Vacuolation Not Reportable 05/28/21 04:04 Dohle Bodies Not Reportable 05/28/21 04:04 Pelger-Huet Anomaly Not Reportable 05/28/21 04:04 Jesse Rods Not Reportable 05/28/21 04:04 Platelet Estimate Consistent w auto 05/28/21 04:04 Clumped Platelets Not Reportable 05/28/21 04:04 Plt Clumps, EDTA Not Reportable 05/28/21 04:04 Large Platelets Not Reportable 05/28/21 04:04 Giant Platelets Not Reportable 05/28/21 04:04 Platelet Satelliting Not Reportable 05/28/21 04:04 Plt Morphology Comment Not Reportable 05/28/21 04:04 RBC Morphology Not Reportable 05/28/21 04:04 Dimorphic RBCs Not Reportable 05/28/21 04:04 Polychromasia Not Reportable 05/28/21 04:04 Hypochromasia Not Reportable 05/28/21 04:04 Poikilocytosis Not Reportable 05/28/21 04:04 Anisocytosis 1+ 05/28/21 04:04 Microcytosis Not Reportable 05/28/21 04:04 Macrocytosis Not Reportable 05/28/21 04:04 Spherocytes Not Reportable 05/28/21 04:04 Pappenheimer Bodies Not Reportable 05/28/21 04:04 Sickle Cells Not Reportable 05/28/21 04:04 Target Cells Not Reportable 05/28/21 04:04 Tear Drop Cells Not Reportable 05/28/21 04:04 Ovalocytes Not Reportable 05/28/21 04:04 Helmet Cells Not Reportable 05/28/21 04:04 Murphy-Albee Bodies Not Reportable 05/28/21 04:04 [place] Rings Not Reportable 05/28/21 04:04 [place] Cells Not Reportable 05/28/21 04:04 Bite Cells Not Reportable 05/28/21 04:04 Crenated Cell Not Reportable 05/28/21 04:04 Elliptocytes Not Reportable 05/28/21 04:04 Acanthocytes (Spur) Not Reportable 05/28/21 04:04 Rouleaux Not Reportable 05/28/21 04:04 Hemoglobin C Crystals Not Reportable 05/28/21 04:04 Schistocytes Not Reportable 05/28/21 04:04 Malaria parasites Not Reportable 05/28/21 04:04 Tomi Bodies Not Reportable 05/28/21 04:04 Haptoglobin 254 mg/dL (43-212) H 05/23/21 18:54 Hem Pathologist Commnt No 05/28/21 04:04 PT 14.9 Sec. (12.2-14.9) 05/25/21 04:25 INR 1.05 (0.87-1.13) 05/25/21 04:25 APTT 72.5 Sec. (24.2-36.6) H* 05/19/21 19:36 D-Dimer 2730.61 ng/mlDDU (0-234) H 05/12/21 07:19 Heparin Anti-Xa Level 0.47 U.I./ml (0.3-0.7) 05/19/21 05:23 ABG pH 7.443 pH Units (7.350-7.450) 05/27/21 09:20 ABG pCO2 38.8 mm Hg 05/27/21 09:20 ABG pO2 115.2 mm Hg (80.0-90.0) H 05/27/21 09:20 ABG HCO3 25.9 mmol/L (20.0-26.0) 05/27/21 09:20 ABG O2 Saturation 98.3 % (95.0-99.0) 05/27/21 09:20 ABG O2 Content 12.5 (0.0-44) 05/27/21 09:20 ABG Base Excess 1.7 mmol/L (-2.0-3.0) 05/27/21 09:20 ABG Hemoglobin 9.2 gm/dl (14.0-18.0) L 05/27/21 09:20 ABG Carboxyhemoglobin 2.2 % (0.0-5.0) 05/27/21 09:20 ABG Methemoglobin 0.7 % (0.0-1.5) 05/27/21 09:20 Oxyhemoglobin 95.4 % (95.0-99.0) 05/27/21 09:20 FiO2 30 % 05/27/21 09:20 Sodium 140 mmol/L (137-145) 06/03/21 04:15 Potassium 4.0 mmol/L (3.6-5.0) 06/03/21 04:15 Chloride 102.5 mmol/L (98-107) 06/03/21 04:15 Carbon Dioxide 28 mmol/L (22-30) 06/03/21 04:15 Anion Gap 14 mmol/L 06/03/21 04:15 BUN 44 mg/dL (9-20) H 06/03/21 04:15 Creatinine 1.3 mg/dL (0.8-1.3) 06/03/21 04:15 Estimated GFR 57 ml/min 06/03/21 04:15 BUN/Creatinine Ratio 34 % 06/03/21 04:15 Glucose 115 mg/dL (75-100) H 06/03/21 04:15 POC Glucose 121 mg/dL (70-105) H 06/04/21 05:31 Lactic Acid 0.90 mmol/L (0.7-2.0) 05/20/21 09:17 Calcium 8.6 mg/dL (8.4-10.2) 06/03/21 04:15 Phosphorus 3.70 mg/dL (2.5-4.5) 06/01/21 04:56 Magnesium 2.10 mg/dL (1.7-2.3) 06/01/21 04:56 Iron 10 ug/dL (49-181) L 05/23/21 Unknown TIBC 151 mcg/dL (250-450) L 05/23/21 Unknown Ferritin 640.2 ng/mL (30.0-300.0) H 05/12/21 07:19 Total Bilirubin 0.50 mg/dL (0.1-1.2) 05/24/21 04:11 AST 152 units/L (5-40) H 05/24/21 04:11 ALT 125 units/L (7-56) H 05/24/21 04:11 Alkaline Phosphatase 72 units/L (35-129) 05/24/21 04:11 Lactate Dehydrogenase 311 units/L (91-180) H 05/23/21 Unknown Total Creatine Kinase 406 units/L (55-170) H 05/04/21 08:42 Troponin T 0.400 ng/mL (0.00-0.029) H* D 05/16/21 18:40 C-Reactive Protein 13.20 mg/dL (0.00-1.30) H 05/28/21 04:04 Total Protein 6.6 g/dL (6.3-8.2) 05/24/21 04:11 Albumin 2.5 g/dL (3.9-5) L 05/24/21 04:11 Albumin/Globulin Ratio 0.6 % 05/24/21 04:11 Triglycerides 144 mg/dL (2-149) 05/10/21 04:57 Cholesterol 140 mg/dL (50-199) 05/04/21 07:25 LDL Cholesterol Direct 89 mg/dL (50-130) 05/04/21 07:25 HDL Cholesterol 48 mg/dL (40-59) 05/04/21 07:25 Cholesterol/HDL Ratio 2.91 % 05/04/21 07:25 Procalcitonin 0.63 ng/mL (<0.15) 05/09/21 15:53 Urine Color Yellow (Yellow) 05/26/21 09:50 Urine Turbidity Turbid (Clear) 05/26/21 09:50 Urine pH 5.0 (5.0-7.0) 05/26/21 09:50 Ur Specific [place] 1.014 (1.003-1.030) 05/26/21 09:50 Urine Protein 30 mg/dl mg/dL (Negative) 05/26/21 09:50 Urine Glucose (UA) Neg mg/dL (Negative) 05/26/21 09:50 Urine Ketones Neg mg/dL (Negative) 05/26/21 09:50 Urine Blood Sm (Negative) 05/26/21 09:50 Urine Nitrite Neg (Negative) 05/26/21 09:50 Urine Bilirubin Neg (Negative) 05/26/21 09:50 Urine Urobilinogen < 2.0 mg/dL (<2.0) 05/26/21 09:50 Ur Leukocyte Esterase Tr (Negative) 05/26/21 09:50 Urine WBC (Auto) 38.0 /HPF (0.0-6.0) H 05/26/21 09:50 Urine RBC (Auto) 5.0 /HPF (0.0-6.0) 05/26/21 09:50 U Epithel Cells (Auto) 1.0 /HPF (0-13.0) 05/23/21 16:30 Urine Bacteria (Auto) 1+ /HPF (Negative) 05/23/21 16:30 Uric Acid Crystals Few 05/09/21 00:40 Triple Phos Crystals 2+ 05/09/21 13:22 Amorphous Crystals 3+ 05/26/21 09:50 Granular Casts 20 /LPF 05/26/21 09:50 Urine Mucus Few /HPF 05/23/21 16:30 Urine Creatinine 100.1 mg/dL (0.1-20.0) H 05/23/21 16:30 Protein/Creatinin Ratio 0.42 05/10/21 11:03 Urine Sodium 25 mmol/L 05/23/21 16:30 Fraction Sodium Excret 0.3 05/23/21 16:30 Urine Total Protein 42 mg/dL (5-11.8) H 05/10/21 11:03 Vancomycin Trough 15.4 ug/mL (5.0-20.0) 05/29/21 14:15 Urine Opiates Screen Negative 05/04/21 Unknown Urine Methadone Screen Negative 05/04/21 Unknown Ur Barbiturates Screen Negative 05/04/21 Unknown Ur Phencyclidine Scrn Negative 05/04/21 Unknown Ur Amphetamines Screen Positive 05/04/21 Unknown U Benzodiazepines Scrn Negative 05/04/21 Unknown Urine Cocaine Screen Negative 05/04/21 Unknown U Marijuana (THC) Screen Negative 05/04/21 Unknown Drugs of Abuse Note Disclamer 05/04/21 Unknown Immunofix Electrophor see below 05/05/21 03:40 AUDRA Screen Negative (Negative) 05/05/21 03:40 Proteinase 3 (PR3) Ab <1.0 AI (<1.0) 05/05/21 03:40 Myeloperoxidase Ab <1.0 AI (<1.0) 05/05/21 03:40 Complement C3 72 mg/dL (82-185) L 05/05/21 03:40 Complement C4 17 mg/dL (15-53) 05/05/21 03:40 Coronavirus (PCR) Positive (Negative) A 05/05/21 08:30 Hepatitis A IgM Ab Non-reactive (NonReactive) 05/05/21 03:40 Hep Bs Antigen Non-reactive (Negative) 05/05/21 03:40 Hep B Core IgM Ab Non-reactive (NonReactive) 05/05/21 03:40 Hepatitis C Antibody Reactive (NonReactive) A 05/05/21 03:40 Blood Type O POSITIVE 05/23/21 07:12 Antibody Screen Negative 05/23/21 07:12 Crossmatch See Detail 05/23/21 07:12 Merino/IV: Voiding Method Indwelling Catheter Active Medications - Current Medications Current Medications: Generic Name Dose Route Start Last Admin Trade Name Freq PRN Reason Stop Dose Admin Acetaminophen 650 mg 05/04/21 12:34 06/03/21 02:06 Acetaminophen 325 Mg Tab PO 650 mg Q4H PRN Administration Pain MILD(1-3)/Fever >100.5/MARIA Acetaminophen 650 mg 05/07/21 16:00 05/11/21 16:25 Acetaminophen 650 Mg Rect Supp GA 650 mg Q4H PRN Administration Pain, Mild (1-3) Atorvastatin Calcium 40 mg 05/09/21 22:00 06/03/21 21:56 Atorvastatin 40 Mg Tab FEEDTUBE 40 mg QHS RISHI Administration Dextrose 0 ml 05/09/21 10:49 05/14/21 06:55 Dextrose 10% *Hypoglycemia IV 250 ml PRN PRN Administration Hypoglycemia Fentanyl 50 mcg 05/23/21 15:00 Fentanyl 100 Mcg/2 Ml Inj IV Q10MIN PRN ANALGESIA Haloperidol Lactate 5 mg 05/09/21 18:32 05/18/21 19:52 Haloperidol Lactate 5 Mg/1 Ml Inj IV 5 mg Q6H PRN Administration Agitation Heparin Sodium (Porcine) 5,000 unit 05/27/21 22:00 06/03/21 21:56 Heparin 5,000 Unit/1 Ml Vial SUB-Q 5,000 unit Q12HR RISHI Administration Hydralazine HCl 50 mg 05/04/21 14:00 06/04/21 06:20 Hydralazine 25 Mg Tab PO 50 mg Q8HR RISHI Administration Hydrophilic Ointment 1 applic 05/05/21 15:21 Lip Therapy Vaseline TP Q2HR PRN Dry Lips Fentanyl Citrate 2,000 mcg in 100 mls @ 4.082 mls/hr 05/23/21 15:00 06/02/21 18:54 Fentanyl Drip Premix IV 0.5 mcg/kg/hr TITR RISHI 2.041 mls/hr Administration Protocol 1 MCG/KG/HR Insulin Human Lispro 0 unit 05/10/21 09:40 05/12/21 16:49 Insulin Lispro 100 Unit/Ml SUB-Q 2 unit Q6HR PRN Administration Hyperglycemia Protocol Labetalol HCl 10 mg 05/15/21 10:24 05/25/21 08:15 Labetalol 20 Mg/4 Ml Inj IV 10 mg Q4H PRN Administration sbp> 160. Lansoprazole 30 mg 05/26/21 10:00 06/03/21 21:56 Lansoprazole 30 Mg Solutab FEEDTUBE 30 mg BID RISHI Administration Metoprolol Tartrate 50 mg 05/26/21 08:00 06/03/21 21:25 Metoprolol Tartrate 25 Mg Tab FEEDTUBE 50 mg TID RISHI Administration Multi-Ingred Cream/Lotion/Oil/Oint 1 applic 05/05/21 15:21 Mineral Oil/Petrolatum, White Ophth Oint 3.5 Gm OU Q4HR PRN Dry Eye(s) Ondansetron HCl 4 mg 05/04/21 12:34 05/04/21 21:51 Ondansetron 4 Mg/2 Ml Inj IV 4 mg Q8H PRN Administration Nausea And Vomiting Oxycodone HCl 5 mg 05/30/21 11:00 05/30/21 14:55 Oxycodone 5 Mg Tab PO 5 mg Q6H PRN Administration Pain, Moderate (4-6) Polyethylene Glycol 17 gm 05/26/21 22:00 06/03/21 21:56 Polyethylene Glycol 3350 17 Gm Powder PO 17 gm QHS RISHI Administration Senna/Docusate Sodium 1 tab 05/05/21 22:00 06/03/21 21:57 Sennosides/Docusate Sodium 8.6/50 Mg Tab FEEDTUBE 1 tab BID RISHI Administration Sodium Chloride 10 ml 05/04/21 22:00 06/03/21 21:57 Sodium Chloride 0.9% 10 Ml Flush Syringe IV 10 ml BID RISHI Administration Sodium Chloride 10 ml 05/04/21 12:34 05/06/21 13:59 Sodium Chloride 0.9% 10 Ml Flush Syringe IV 10 ml PRN PRN Administration LINE FLUSH Sodium Chloride 10 ml 05/09/21 09:46 Sodium Chloride 0.9% 50 Ml Ivpb IV PRN PRN FLUSH Nutrition/Malnutrition Assess - Dietary Evaluation Nutrition/Malnutrition Findings: Nutrition Notes Start: 05/05/21 16:15 Freq: Status: Active Protocol: Document 06/03/21 14:39 ROSAURA (Rec: 06/03/21 14:42 ROSAURA [id number]) Nutrition Notes Initial or Follow up Reassessment Current Diagnosis Acute Kidney Injury, Hypertension,Heart Failure, Respiratory Failure Other Pertinent Diagnosis Severe COVID-19 pneu, metabolic encephalopathy, polysubstance dependence Current Diet TF - Nepro at 45ml/hr Labs/Tests BUN 44 Pertinent Medications reviewed Height 5 ft 7 in Weight 81.647 kg [place] Body Weight (kg) 67.27 BMI 28.1 Weight Status Overweight Subjective/Other Information Pt remains on vent support. Still awaiting family consent for trach and PEG placement. Spoke with RN via phone (14:18 ); pt continues to tolerate TF at goal rate Percent of energy/protein needs met: 100% energy 89% pro Burn Absent Trauma Absent #1 Nutrition Diagnosis Inadequate oral intake Diagnosis Progress(for reassessment Continues documentation) Is patient on ventilator? Yes Is Patient Ambulatory and/or Out of Bed No [phone] [facility] Additional Notes Pro needs 1.2-2g/k-163g/ day Fluid needs 1ml/kcal Nutrition Intervention Nutrition Support: Continue Nepro at 45ml/hr with 200ml water flush q4h. Kcal 1,944 Protein (gm) 87 Carbohydrates (gm) 174 Fat (gm) 104 Fluid (mL) 785 Fiber (gm) 14 Goal #1 TF tolerance Goal #2 TF to meet at least 75% energy and pro needs Follow-Up By: 06/10/21 Additional Comments F/U: stable TF, vent status, trach/PEG placement, wt
--- NOTE | 2021-06-03 14:39 | Progress Note ---
Assessment and Plan Acute hypoxic resp failure on MVS COVID positive NSTEMI Acute kidney injury Cardiomyopathy EF 35-40% History of hepatitis C Elevated D-dimer. Low probability for PE seen on VQ scan Tobacco abuse Polysubstance abusepatient with positive methamphetamines and has a history of cocaine use Anemia Failed extubation x3 now awaiting trach placement Continue with daily SBTs The primary service is in discussions with his family re goals of care and possible tracheostomy placement - VAP bundle addressed, aspiration precautions - titrate supplemental oxygen to keep SpO2 88-90% - Bronchodilators with pulmonary hygiene per RT - continue accuchecks with glycemic control per SSI (While critically ill target blood glucose of 140-180 mg/dL; avoid hypoglycemia) - avoid nephrotoxins, renally dose all medications - avoid benzodiazepines, reduce the possibility of delirium - prn analgesia per pain score - Maintenance of sleep-wake cycle, avoid delirium - Stress ulcer prophylaxis -Therapeutic anticoagulation- heparin infusion - mobility, off loading and frequent turning per facility protocol for pressure ulcer prevention - Monitor hemodynamics closely -Supportive transfusions as clinically indicated to keep HgB >7g/dL - continue other care per attending / other consultants CONDITION: CRITICAL PROGNOSIS: GUARDED CODE STATUS: FULL CODE The high probability of a clinically significant, sudden or life-threatening deterioration of the [respiratory, cardiovascular & neurologic ] system(s) required my full and direct attention, intervention and personal management. The aggregate critical care time was [33] minutes without overlap. Time includes spent on; [x] Data Review and interpretation [x] Patient assessment and monitoring of vital signs [x] Documentation [x] Medication orders and management Subjective Date of service: 06/03/21 Principal diagnosis: AHRF; COVID-19 infection; NSTEMI; YE; HFrEF (35-40%); Polysubstance abuse Interval history: Follow up for acute hypoxemic resp failure on MVS, COVID infection;YE; Hypertension Seen and examined. Vitals, labs, medications, chart and imaging reviewed. Discussed with respiratory and nursing care staff. On going fevers, more awake Fentanyl at 0.5mcg Has Merino catheter for urinary retention MVS: 16/450/8/25% Daily SBT as tolerated Family has been located and are in discussions with hospital medicine service re goals of care Objective Vital Signs - 12hr 06/03/21 06/03/21 06/03/21 03:00 03:25 03:44 Temperature 98.8 F Pulse Rate 63 63 Pulse Rate [ 63 From Monitor] Respiratory 16 18 Rate Blood Pressure 111/77 O2 Sat by Pulse 96 Oximetry 06/03/21 06/03/21 06/03/21 04:00 04:15 05:00 Temperature Pulse Rate 65 63 65 Pulse Rate [ From Monitor] Respiratory 20 2 L 16 Rate Blood Pressure 115/75 106/75 O2 Sat by Pulse 99 98 98 Oximetry 06/03/21 06/03/21 06/03/21 06:00 07:00 07:25 Temperature Pulse Rate 59 L 63 61 Pulse Rate [ From Monitor] Respiratory 17 17 Rate Blood Pressure 110/74 113/83 113/83 O2 Sat by Pulse 100 99 Oximetry 06/03/21 06/03/21 06/03/21 07:32 08:00 09:00 Temperature 97.7 F Pulse Rate 66 71 Pulse Rate [ 66 From Monitor] Respiratory 18 19 Rate Blood Pressure 114/81 119/83 O2 Sat by Pulse 92 Oximetry 06/03/21 06/03/21 06/03/21 09:30 10:00 11:00 Temperature Pulse Rate 66 65 67 Pulse Rate [ From Monitor] Respiratory 13 18 Rate Blood Pressure 114/81 124/84 110/76 O2 Sat by Pulse 99 Oximetry 06/03/21 06/03/21 06/03/21 11:25 11:29 12:00 Temperature 99.3 F Pulse Rate 67 69 Pulse Rate [ 69 From Monitor] Respiratory 19 Rate Blood Pressure 120/79 114/78 O2 Sat by Pulse 97 98 Oximetry Constitutional: appears uncomfortable, other (middle aged male with mildly increased respiratory effort at rest) Eyes: non-icteric ENT: oropharynx moist, other (ETT 24 cm ELIZABET) Neck: supple, no lymphadenopathy, no JVD Effort: mildly labored Ascultation: Bilateral: clear, diminished breath sounds, rhonchi Percussion: Bilateral: not dull Cardiovascular: regular rate and rhythm, other (S1,S2) Gastrointestinal: normoactive bowel sounds, soft, non-tender, non-distended Integumentary: normal Extremities: no cyanosis, no edema, pulses normal Neurologic: non-focal exam (grossly), pupils equal and round, unable to assess (sedated) Psychiatric: other CBC and BMP: 06/03/21 04:15 06/03/21 04:15 ABG, PT/INR, D-dimer: ABG ABG pH 7.443 pH Units (7.350-7.450) 05/27/21 09:20 ABG pCO2 38.8 mm Hg 05/27/21 09:20 ABG pO2 115.2 mm Hg (80.0-90.0) H 05/27/21 09:20 ABG O2 Saturation 98.3 % (95.0-99.0) 05/27/21 09:20 PT/INR, D-dimer PT 14.9 Sec. (12.2-14.9) 05/25/21 04:25 INR 1.05 (0.87-1.13) 05/25/21 04:25 D-Dimer 2730.61 ng/mlDDU (0-234) H 05/12/21 07:19 Abnormal lab findings: Abnormal Labs 05/04/21 05/04/21 05/04/21 07:25 07:25 07:25 WBC 12.9 H RBC 3.04 L Hgb 9.5 L Hct 28.4 L MCV MCHC RDW 15.4 H Plt Count Lymph % (Auto) 11.4 L [place] % (Auto) 10.1 H Lymph # (Auto) [place] # (Auto) 1.3 H Seg Neutrophils % 78.0 H Seg Neuts % (Manual) Lymphocytes % (Manual) Monocytes % (Manual) Seg Neutrophils # 10.0 H Seg Neutrophils # Man Lymphocytes # (Manual) Monocytes # (Manual) Haptoglobin PT 15.1 H APTT D-Dimer Heparin Anti-Xa Level ABG pH ABG pO2 ABG HCO3 ABG O2 Saturation ABG Base Excess ABG Hemoglobin Oxyhemoglobin Sodium 135 L Potassium Chloride Carbon Dioxide BUN 65 H Creatinine 3.4 H Glucose 118 H POC Glucose Calcium Phosphorus Magnesium Iron TIBC Ferritin Total Bilirubin 1.50 H AST 519 H ALT 475 H Lactate Dehydrogenase Total Creatine Kinase Troponin T 1.300 H* C-Reactive Protein Albumin Urine WBC (Auto) Urine Creatinine Urine Total Protein Complement C3 Coronavirus (PCR) Hepatitis C Antibody Crossmatch 05/04/21 05/04/21 05/04/21 07:25 08:42 08:42 WBC RBC Hgb Hct MCV MCHC RDW Plt Count Lymph % (Auto) [place] % (Auto) Lymph # (Auto) [place] # (Auto) Seg Neutrophils % Seg Neuts % (Manual) Lymphocytes % (Manual) Monocytes % (Manual) Seg Neutrophils # Seg Neutrophils # Man Lymphocytes # (Manual) Monocytes # (Manual) Haptoglobin PT APTT D-Dimer 579.49 H Heparin Anti-Xa Level ABG pH ABG pO2 ABG HCO3 ABG O2 Saturation ABG Base Excess ABG Hemoglobin Oxyhemoglobin Sodium Potassium Chloride Carbon Dioxide BUN Creatinine Glucose POC Glucose Calcium Phosphorus Magnesium Iron TIBC Ferritin Total Bilirubin AST ALT Lactate Dehydrogenase Total Creatine Kinase 406 H Troponin T 1.230 H* C-Reactive Protein Albumin Urine WBC (Auto) Urine Creatinine Urine Total Protein Complement C3 Coronavirus (PCR) Hepatitis C Antibody Crossmatch 05/04/21 05/04/21 05/04/21 10:13 13:34 18:14 WBC RBC Hgb 8.8 L Hct 26.6 L MCV MCHC RDW Plt Count Lymph % (Auto) [place] % (Auto) Lymph # (Auto) [place] # (Auto) Seg Neutrophils % Seg Neuts % (Manual) Lymphocytes % (Manual) Monocytes % (Manual) Seg Neutrophils # Seg Neutrophils # Man Lymphocytes # (Manual) Monocytes # (Manual) Haptoglobin PT APTT D-Dimer Heparin Anti-Xa Level < 0.10 L ABG pH ABG pO2 ABG HCO3 ABG O2 Saturation ABG Base Excess ABG Hemoglobin Oxyhemoglobin Sodium Potassium Chloride Carbon Dioxide BUN Creatinine Glucose POC Glucose Calcium Phosphorus Magnesium Iron TIBC Ferritin Total Bilirubin AST ALT Lactate Dehydrogenase Total Creatine Kinase Troponin T 1.400 H* C-Reactive Protein Albumin Urine WBC (Auto) Urine Creatinine Urine Total Protein Complement C3 Coronavirus (PCR) Hepatitis C Antibody Crossmatch 05/05/21 05/05/21 05/05/21 03:40 03:40 03:40 WBC RBC Hgb Hct MCV MCHC RDW Plt Count Lymph % (Auto) [place] % (Auto) Lymph # (Auto) [place] # (Auto) Seg Neutrophils % Seg Neuts % (Manual) Lymphocytes % (Manual) Monocytes % (Manual) Seg Neutrophils # Seg Neutrophils # Man Lymphocytes # (Manual) Monocytes # (Manual) Haptoglobin PT APTT D-Dimer Heparin Anti-Xa Level 0.11 L ABG pH ABG pO2 ABG HCO3 ABG O2 Saturation ABG Base Excess ABG Hemoglobin Oxyhemoglobin Sodium Potassium 3.3 L Chloride Carbon Dioxide BUN 59 H Creatinine 2.6 H Glucose 139 H POC Glucose Calcium Phosphorus Magnesium Iron TIBC Ferritin Total Bilirubin AST ALT Lactate Dehydrogenase Total Creatine Kinase Troponin T C-Reactive Protein Albumin Urine WBC (Auto) Urine Creatinine Urine Total Protein Complement C3 Coronavirus (PCR) Hepatitis C Antibody Reactive A Crossmatch 05/05/21 05/05/21 05/05/21 03:40 08:30 09:57 WBC RBC Hgb Hct MCV MCHC RDW Plt Count Lymph % (Auto) [place] % (Auto) Lymph # (Auto) [place] # (Auto) Seg Neutrophils % Seg Neuts % (Manual) Lymphocytes % (Manual) Monocytes % (Manual) Seg Neutrophils # Seg Neutrophils # Man Lymphocytes # (Manual) Monocytes # (Manual) Haptoglobin PT APTT D-Dimer Heparin Anti-Xa Level ABG pH ABG pO2 ABG HCO3 ABG O2 Saturation ABG Base Excess ABG Hemoglobin Oxyhemoglobin Sodium Potassium Chloride Carbon Dioxide BUN Creatinine Glucose POC Glucose Calcium Phosphorus Magnesium Iron TIBC Ferritin Total Bilirubin AST ALT Lactate Dehydrogenase Total Creatine Kinase Troponin T C-Reactive Protein Albumin Urine WBC (Auto) Urine Creatinine 100.8 H Urine Total Protein Complement C3 72 L Coronavirus (PCR) Positive A Hepatitis C Antibody Crossmatch 05/05/21 05/05/21 05/05/21 11:28 17:00 19:51 WBC RBC Hgb Hct MCV MCHC RDW Plt Count Lymph % (Auto) [place] % (Auto) Lymph # (Auto) [place] # (Auto) Seg Neutrophils % Seg Neuts % (Manual) Lymphocytes % (Manual) Monocytes % (Manual) Seg Neutrophils # Seg Neutrophils # Man Lymphocytes # (Manual) Monocytes # (Manual) Haptoglobin PT APTT D-Dimer Heparin Anti-Xa Level 0.10 L 0.22 L ABG pH 7.304 L ABG pO2 140.8 H ABG HCO3 ABG O2 Saturation ABG Base Excess -2.1 L ABG Hemoglobin 10.2 L Oxyhemoglobin Sodium Potassium Chloride Carbon Dioxide BUN Creatinine Glucose POC Glucose Calcium Phosphorus Magnesium Iron TIBC Ferritin Total Bilirubin AST ALT Lactate Dehydrogenase Total Creatine Kinase Troponin T C-Reactive Protein Albumin Urine WBC (Auto) Urine Creatinine Urine Total Protein Complement C3 Coronavirus (PCR) Hepatitis C Antibody Crossmatch 05/06/21 05/06/21 05/06/21 03:47 06:15 17:53 WBC RBC Hgb 9.0 L Hct 27.8 L MCV MCHC RDW Plt Count Lymph % (Auto) [place] % (Auto) Lymph # (Auto) [place] # (Auto) Seg Neutrophils % Seg Neuts % (Manual) Lymphocytes % (Manual) Monocytes % (Manual) Seg Neutrophils # Seg Neutrophils # Man Lymphocytes # (Manual) Monocytes # (Manual) Haptoglobin PT APTT D-Dimer Heparin Anti-Xa Level 0.10 L ABG pH ABG pO2 143.5 H ABG HCO3 ABG O2 Saturation ABG Base Excess -2.4 L ABG Hemoglobin 6.9 L Oxyhemoglobin Sodium Potassium Chloride Carbon Dioxide BUN Creatinine Glucose POC Glucose Calcium Phosphorus Magnesium Iron TIBC Ferritin Total Bilirubin AST ALT Lactate Dehydrogenase Total Creatine Kinase Troponin T C-Reactive Protein Albumin Urine WBC (Auto) Urine Creatinine Urine Total Protein Complement C3 Coronavirus (PCR) Hepatitis C Antibody Crossmatch 05/07/21 05/07/21 05/07/21 00:07 03:22 03:45 WBC RBC Hgb Hct MCV MCHC RDW Plt Count Lymph % (Auto) [place] % (Auto) Lymph # (Auto) [place] # (Auto) Seg Neutrophils % Seg Neuts % (Manual) Lymphocytes % (Manual) Monocytes % (Manual) Seg Neutrophils # Seg Neutrophils # Man Lymphocytes # (Manual) Monocytes # (Manual) Haptoglobin PT APTT D-Dimer Heparin Anti-Xa Level < 0.10 L ABG pH ABG pO2 104.3 H ABG HCO3 ABG O2 Saturation ABG Base Excess -2.6 L ABG Hemoglobin 9.1 L Oxyhemoglobin Sodium Potassium Chloride 107.1 H Carbon Dioxide 20 L BUN 56 H Creatinine 2.9 H Glucose POC Glucose Calcium Phosphorus Magnesium Iron TIBC Ferritin Total Bilirubin AST ALT Lactate Dehydrogenase Total Creatine Kinase Troponin T C-Reactive Protein Albumin Urine WBC (Auto) Urine Creatinine Urine Total Protein Complement C3 Coronavirus (PCR) Hepatitis C Antibody Crossmatch 05/07/21 05/07/21 05/07/21 07:44 16:28 22:41 WBC RBC Hgb Hct MCV MCHC RDW Plt Count Lymph % (Auto) [place] % (Auto) Lymph # (Auto) [place] # (Auto) Seg Neutrophils % Seg Neuts % (Manual) Lymphocytes % (Manual) Monocytes % (Manual) Seg Neutrophils # Seg Neutrophils # Man Lymphocytes # (Manual) Monocytes # (Manual) Haptoglobin PT APTT D-Dimer Heparin Anti-Xa Level < 0.10 L 0.10 L < 0.10 L ABG pH ABG pO2 ABG HCO3 ABG O2 Saturation ABG Base Excess ABG Hemoglobin Oxyhemoglobin Sodium Potassium Chloride Carbon Dioxide BUN Creatinine Glucose POC Glucose Calcium Phosphorus Magnesium Iron TIBC Ferritin Total Bilirubin AST ALT Lactate Dehydrogenase Total Creatine Kinase Troponin T C-Reactive Protein Albumin Urine WBC (Auto) Urine Creatinine Urine Total Protein Complement C3 Coronavirus (PCR) Hepatitis C Antibody Crossmatch 05/08/21 05/08/21 05/08/21 03:25 04:34 07:30 WBC 12.4 H RBC 3.02 L Hgb 9.5 L Hct 29.2 L MCV 97 H MCHC RDW 16.7 H Plt Count Lymph % (Auto) 8.1 L [place] % (Auto) 11.0 H Lymph # (Auto) 1.0 L [place] # (Auto) 1.4 H Seg Neutrophils % 80.1 H Seg Neuts % (Manual) Lymphocytes % (Manual) Monocytes % (Manual) Seg Neutrophils # 9.9 H Seg Neutrophils # Man Lymphocytes # (Manual) Monocytes # (Manual) Haptoglobin PT APTT D-Dimer Heparin Anti-Xa Level ABG pH ABG pO2 139.0 H ABG HCO3 ABG O2 Saturation ABG Base Excess ABG Hemoglobin 8.8 L Oxyhemoglobin Sodium Potassium Chloride 110.5 H Carbon Dioxide BUN 59 H Creatinine 2.8 H Glucose 103 H POC Glucose Calcium Phosphorus Magnesium Iron TIBC Ferritin Total Bilirubin AST ALT 327 H Lactate Dehydrogenase Total Creatine Kinase Troponin T C-Reactive Protein Albumin 3.1 L Urine WBC (Auto) Urine Creatinine Urine Total Protein Complement C3 Coronavirus (PCR) Hepatitis C Antibody Crossmatch 05/09/21 05/09/21 05/09/21 04:10 04:20 04:20 WBC 11.7 H RBC 2.79 L Hgb 8.7 L Hct 26.5 L MCV 95 H MCHC RDW 16.2 H Plt Count Lymph % (Auto) [place] % (Auto) Lymph # (Auto) [place] # (Auto) Seg Neutrophils % Seg Neuts % (Manual) Lymphocytes % (Manual) Monocytes % (Manual) Seg Neutrophils # Seg Neutrophils # Man Lymphocytes # (Manual) Monocytes # (Manual) Haptoglobin PT APTT D-Dimer Heparin Anti-Xa Level ABG pH ABG pO2 161.6 H ABG HCO3 ABG O2 Saturation ABG Base Excess ABG Hemoglobin 8.3 L Oxyhemoglobin Sodium 151 H Potassium Chloride 114.5 H Carbon Dioxide 21 L BUN 57 H Creatinine 2.4 H Glucose POC Glucose Calcium Phosphorus Magnesium Iron TIBC Ferritin Total Bilirubin AST ALT 210 H Lactate Dehydrogenase Total Creatine Kinase Troponin T C-Reactive Protein Albumin 2.9 L Urine WBC (Auto) Urine Creatinine Urine Total Protein Complement C3 Coronavirus (PCR) Hepatitis C Antibody Crossmatch 05/09/21 05/09/21 05/09/21 09:48 09:48 13:22 WBC 11.6 H RBC 3.00 L Hgb 9.0 L Hct 28.4 L MCV MCHC RDW 15.9 H Plt Count Lymph % (Auto) 5.9 L [place] % (Auto) 8.9 H Lymph # (Auto) 0.7 L [place] # (Auto) 1.0 H Seg Neutrophils % 84.3 H Seg Neuts % (Manual) Lymphocytes % (Manual) Monocytes % (Manual) Seg Neutrophils # 9.8 H Seg Neutrophils # Man Lymphocytes # (Manual) Monocytes # (Manual) Haptoglobin PT APTT D-Dimer Heparin Anti-Xa Level ABG pH ABG pO2 ABG HCO3 ABG O2 Saturation ABG Base Excess ABG Hemoglobin Oxyhemoglobin Sodium Potassium Chloride Carbon Dioxide BUN Creatinine Glucose POC Glucose Calcium Phosphorus Magnesium Iron TIBC Ferritin Total Bilirubin AST ALT Lactate Dehydrogenase Total Creatine Kinase Troponin T C-Reactive Protein 8.70 H Albumin Urine WBC (Auto) 25.0 H Urine Creatinine Urine Total Protein Complement C3 Coronavirus (PCR) Hepatitis C Antibody Crossmatch 05/09/21 05/09/21 05/10/21 15:20 18:16 04:57 WBC RBC 2.87 L Hgb 8.8 L Hct 27.0 L MCV MCHC RDW 15.9 H Plt Count Lymph % (Auto) [place] % (Auto) Lymph # (Auto) [place] # (Auto) Seg Neutrophils % Seg Neuts % (Manual) Lymphocytes % (Manual) Monocytes % (Manual) Seg Neutrophils # Seg Neutrophils # Man Lymphocytes # (Manual) Monocytes # (Manual) Haptoglobin PT APTT D-Dimer Heparin Anti-Xa Level ABG pH ABG pO2 102.0 H ABG HCO3 ABG O2 Saturation ABG Base Excess -2.8 L ABG Hemoglobin 9.0 L Oxyhemoglobin Sodium Potassium Chloride Carbon Dioxide BUN Creatinine Glucose POC Glucose 130 H Calcium Phosphorus Magnesium Iron TIBC Ferritin Total Bilirubin AST ALT Lactate Dehydrogenase Total Creatine Kinase Troponin T C-Reactive Protein Albumin Urine WBC (Auto) Urine Creatinine Urine Total Protein Complement C3 Coronavirus (PCR) Hepatitis C Antibody Crossmatch 05/10/21 05/10/21 05/10/21 04:57 04:57 04:57 WBC RBC Hgb Hct MCV MCHC RDW Plt Count Lymph % (Auto) [place] % (Auto) Lymph # (Auto) [place] # (Auto) Seg Neutrophils % Seg Neuts % (Manual) Lymphocytes % (Manual) Monocytes % (Manual) Seg Neutrophils # Seg Neutrophils # Man Lymphocytes # (Manual) Monocytes # (Manual) Haptoglobin PT APTT D-Dimer 1546.78 H Heparin Anti-Xa Level ABG pH ABG pO2 ABG HCO3 ABG O2 Saturation ABG Base Excess ABG Hemoglobin Oxyhemoglobin Sodium 148 H Potassium Chloride 114.9 H Carbon Dioxide 21 L BUN 57 H Creatinine 2.3 H Glucose 157 H POC Glucose Calcium Phosphorus Magnesium Iron TIBC Ferritin 888.2 H Total Bilirubin AST ALT Lactate Dehydrogenase 289 H Total Creatine Kinase Troponin T C-Reactive Protein 6.80 H Albumin Urine WBC (Auto) Urine Creatinine Urine Total Protein Complement C3 Coronavirus (PCR) Hepatitis C Antibody Crossmatch 05/10/21 05/10/21 05/10/21 05:09 08:04 11:03 WBC RBC Hgb Hct MCV MCHC RDW Plt Count Lymph % (Auto) [place] % (Auto) Lymph # (Auto) [place] # (Auto) Seg Neutrophils % Seg Neuts % (Manual) Lymphocytes % (Manual) Monocytes % (Manual) Seg Neutrophils # Seg Neutrophils # Man Lymphocytes # (Manual) Monocytes # (Manual) Haptoglobin PT APTT D-Dimer Heparin Anti-Xa Level ABG pH 7.473 H ABG pO2 114.6 H ABG HCO3 ABG O2 Saturation ABG Base Excess ABG Hemoglobin 9.5 L Oxyhemoglobin Sodium Potassium Chloride Carbon Dioxide BUN Creatinine Glucose POC Glucose 152 H Calcium Phosphorus Magnesium Iron TIBC Ferritin Total Bilirubin AST ALT Lactate Dehydrogenase Total Creatine Kinase Troponin T C-Reactive Protein Albumin Urine WBC (Auto) Urine Creatinine 100.8 H Urine Total Protein 42 H Complement C3 Coronavirus (PCR) Hepatitis C Antibody Crossmatch 05/10/21 05/10/21 05/10/21 13:07 18:01 23:31 WBC RBC Hgb Hct MCV MCHC RDW Plt Count Lymph % (Auto) [place] % (Auto) Lymph # (Auto) [place] # (Auto) Seg Neutrophils % Seg Neuts % (Manual) Lymphocytes % (Manual) Monocytes % (Manual) Seg Neutrophils # Seg Neutrophils # Man Lymphocytes # (Manual) Monocytes # (Manual) Haptoglobin PT APTT D-Dimer Heparin Anti-Xa Level ABG pH ABG pO2 ABG HCO3 ABG O2 Saturation ABG Base Excess ABG Hemoglobin Oxyhemoglobin Sodium Potassium Chloride Carbon Dioxide BUN Creatinine Glucose POC Glucose 150 H 189 H 142 H Calcium Phosphorus Magnesium Iron TIBC Ferritin Total Bilirubin AST ALT Lactate Dehydrogenase Total Creatine Kinase Troponin T C-Reactive Protein Albumin Urine WBC (Auto) Urine Creatinine Urine Total Protein Complement C3 Coronavirus (PCR) Hepatitis C Antibody Crossmatch 05/10/21 05/11/21 05/11/21 Unknown 05:25 06:53 WBC RBC Hgb Hct MCV MCHC RDW Plt Count Lymph % (Auto) [place] % (Auto) Lymph # (Auto) [place] # (Auto) Seg Neutrophils % Seg Neuts % (Manual) Lymphocytes % (Manual) Monocytes % (Manual) Seg Neutrophils # Seg Neutrophils # Man Lymphocytes # (Manual) Monocytes # (Manual) Haptoglobin PT APTT D-Dimer Heparin Anti-Xa Level ABG pH ABG pO2 126.6 H ABG HCO3 ABG O2 Saturation ABG Base Excess ABG Hemoglobin 9.2 L Oxyhemoglobin Sodium 150 H Potassium Chloride 116.6 H Carbon Dioxide 21 L BUN 62 H Creatinine 2.5 H Glucose 142 H POC Glucose 163 H Calcium Phosphorus Magnesium Iron TIBC Ferritin Total Bilirubin AST ALT Lactate Dehydrogenase Total Creatine Kinase Troponin T C-Reactive Protein Albumin Urine WBC (Auto) Urine Creatinine Urine Total Protein Complement C3 Coronavirus (PCR) Hepatitis C Antibody Crossmatch 05/11/21 05/11/21 05/11/21 06:53 11:06 13:51 WBC RBC 3.07 L Hgb 9.3 L Hct 29.0 L MCV 95 H MCHC RDW 16.1 H Plt Count Lymph % (Auto) [place] % (Auto) Lymph # (Auto) [place] # (Auto) Seg Neutrophils % Seg Neuts % (Manual) Lymphocytes % (Manual) Monocytes % (Manual) Seg Neutrophils # Seg Neutrophils # Man Lymphocytes # (Manual) Monocytes # (Manual) Haptoglobin PT APTT D-Dimer Heparin Anti-Xa Level ABG pH ABG pO2 74.9 L ABG HCO3 ABG O2 Saturation ABG Base Excess -3.3 L ABG Hemoglobin 10.8 L Oxyhemoglobin Sodium Potassium Chloride Carbon Dioxide BUN Creatinine Glucose POC Glucose 145 H Calcium Phosphorus Magnesium Iron TIBC Ferritin Total Bilirubin AST ALT Lactate Dehydrogenase Total Creatine Kinase Troponin T C-Reactive Protein Albumin Urine WBC (Auto) Urine Creatinine Urine Total Protein Complement C3 Coronavirus (PCR) Hepatitis C Antibody Crossmatch 05/11/21 05/11/21 05/11/21 14:43 14:43 15:47 WBC RBC Hgb 9.2 L Hct 29.7 L MCV MCHC RDW Plt Count Lymph % (Auto) [place] % (Auto) Lymph # (Auto) [place] # (Auto) Seg Neutrophils % Seg Neuts % (Manual) Lymphocytes % (Manual) Monocytes % (Manual) Seg Neutrophils # Seg Neutrophils # Man Lymphocytes # (Manual) Monocytes # (Manual) Haptoglobin PT 15.6 H APTT D-Dimer Heparin Anti-Xa Level ABG pH ABG pO2 ABG HCO3 ABG O2 Saturation ABG Base Excess ABG Hemoglobin Oxyhemoglobin Sodium Potassium Chloride Carbon Dioxide BUN Creatinine Glucose POC Glucose 137 H Calcium Phosphorus Magnesium Iron TIBC Ferritin Total Bilirubin AST ALT Lactate Dehydrogenase Total Creatine Kinase Troponin T C-Reactive Protein Albumin Urine WBC (Auto) Urine Creatinine Urine Total Protein Complement C3 Coronavirus (PCR) Hepatitis C Antibody Crossmatch 05/12/21 05/12/21 05/12/21 00:04 05:07 07:19 WBC 11.9 H RBC 3.00 L Hgb 9.1 L Hct 28.9 L MCV 96 H MCHC RDW 16.7 H Plt Count Lymph % (Auto) 11.5 L [place] % (Auto) 8.2 H Lymph # (Auto) [place] # (Auto) 1.0 H Seg Neutrophils % 80.0 H Seg Neuts % (Manual) Lymphocytes % (Manual) Monocytes % (Manual) Seg Neutrophils # 9.6 H Seg Neutrophils # Man Lymphocytes # (Manual) Monocytes # (Manual) Haptoglobin PT APTT D-Dimer Heparin Anti-Xa Level ABG pH ABG pO2 ABG HCO3 ABG O2 Saturation ABG Base Excess ABG Hemoglobin Oxyhemoglobin Sodium Potassium Chloride Carbon Dioxide BUN Creatinine Glucose POC Glucose 121 H 117 H Calcium Phosphorus Magnesium Iron TIBC Ferritin Total Bilirubin AST ALT Lactate Dehydrogenase Total Creatine Kinase Troponin T C-Reactive Protein Albumin Urine WBC (Auto) Urine Creatinine Urine Total Protein Complement C3 Coronavirus (PCR) Hepatitis C Antibody Crossmatch 05/12/21 05/12/21 05/12/21 07:19 07:19 07:19 WBC RBC Hgb Hct MCV MCHC RDW Plt Count Lymph % (Auto) [place] % (Auto) Lymph # (Auto) [place] # (Auto) Seg Neutrophils % Seg Neuts % (Manual) Lymphocytes % (Manual) Monocytes % (Manual) Seg Neutrophils # Seg Neutrophils # Man Lymphocytes # (Manual) Monocytes # (Manual) Haptoglobin PT APTT D-Dimer 2730.61 H Heparin Anti-Xa Level ABG pH ABG pO2 ABG HCO3 ABG O2 Saturation ABG Base Excess ABG Hemoglobin Oxyhemoglobin Sodium 146 H Potassium 5.1 H Chloride 112.4 H Carbon Dioxide 21 L BUN 61 H Creatinine 2.2 H Glucose 136 H POC Glucose Calcium 8.1 L Phosphorus Magnesium Iron TIBC Ferritin 640.2 H Total Bilirubin AST ALT Lactate Dehydrogenase 314 H Total Creatine Kinase Troponin T C-Reactive Protein 1.60 H Albumin Urine WBC (Auto) Urine Creatinine Urine Total Protein Complement C3 Coronavirus (PCR) Hepatitis C Antibody Crossmatch 05/12/21 05/12/21 05/12/21 11:10 16:10 16:38 WBC RBC Hgb Hct MCV MCHC RDW Plt Count Lymph % (Auto) [place] % (Auto) Lymph # (Auto) [place] # (Auto) Seg Neutrophils % Seg Neuts % (Manual) Lymphocytes % (Manual) Monocytes % (Manual) Seg Neutrophils # Seg Neutrophils # Man Lymphocytes # (Manual) Monocytes # (Manual) Haptoglobin PT APTT D-Dimer Heparin Anti-Xa Level 0.20 L ABG pH ABG pO2 ABG HCO3 ABG O2 Saturation ABG Base Excess ABG Hemoglobin Oxyhemoglobin Sodium Potassium Chloride Carbon Dioxide BUN Creatinine Glucose POC Glucose 131 H 157 H Calcium Phosphorus Magnesium Iron TIBC Ferritin Total Bilirubin AST ALT Lactate Dehydrogenase Total Creatine Kinase Troponin T C-Reactive Protein Albumin Urine WBC (Auto) Urine Creatinine Urine Total Protein Complement C3 Coronavirus (PCR) Hepatitis C Antibody Crossmatch 05/12/21 05/13/21 05/13/21 23:30 00:12 04:20 WBC RBC Hgb Hct MCV MCHC RDW Plt Count Lymph % (Auto) [place] % (Auto) Lymph # (Auto) [place] # (Auto) Seg Neutrophils % Seg Neuts % (Manual) Lymphocytes % (Manual) Monocytes % (Manual) Seg Neutrophils # Seg Neutrophils # Man Lymphocytes # (Manual) Monocytes # (Manual) Haptoglobin PT APTT D-Dimer Heparin Anti-Xa Level 0.13 L ABG pH ABG pO2 ABG HCO3 ABG O2 Saturation ABG Base Excess ABG Hemoglobin Oxyhemoglobin Sodium Potassium Chloride 111.2 H Carbon Dioxide BUN 53 H Creatinine 1.9 H Glucose 121 H POC Glucose 115 H Calcium 8.3 L Phosphorus Magnesium Iron TIBC Ferritin Total Bilirubin AST ALT Lactate Dehydrogenase Total Creatine Kinase Troponin T C-Reactive Protein Albumin Urine WBC (Auto) Urine Creatinine Urine Total Protein Complement C3 Coronavirus (PCR) Hepatitis C Antibody Crossmatch 05/13/21 05/13/21 05/13/21 04:20 11:15 11:29 WBC 13.1 H RBC 2.86 L Hgb 8.5 L Hct 26.9 L MCV MCHC RDW 15.7 H Plt Count Lymph % (Auto) [place] % (Auto) Lymph # (Auto) [place] # (Auto) Seg Neutrophils % Seg Neuts % (Manual) Lymphocytes % (Manual) Monocytes % (Manual) Seg Neutrophils # Seg Neutrophils # Man Lymphocytes # (Manual) Monocytes # (Manual) Haptoglobin PT APTT D-Dimer Heparin Anti-Xa Level ABG pH 7.456 H ABG pO2 106.0 H ABG HCO3 ABG O2 Saturation ABG Base Excess ABG Hemoglobin 7.1 L Oxyhemoglobin Sodium Potassium Chloride Carbon Dioxide BUN Creatinine Glucose POC Glucose 121 H Calcium Phosphorus Magnesium Iron TIBC Ferritin Total Bilirubin AST ALT Lactate Dehydrogenase Total Creatine Kinase Troponin T C-Reactive Protein Albumin Urine WBC (Auto) Urine Creatinine Urine Total Protein Complement C3 Coronavirus (PCR) Hepatitis C Antibody Crossmatch 05/13/21 05/13/21 05/14/21 16:38 23:43 04:26 WBC 14.2 H RBC 3.11 L Hgb 9.4 L Hct 29.3 L MCV MCHC RDW 15.4 H Plt Count Lymph % (Auto) [place] % (Auto) Lymph # (Auto) [place] # (Auto) Seg Neutrophils % Seg Neuts % (Manual) Lymphocytes % (Manual) Monocytes % (Manual) Seg Neutrophils # Seg Neutrophils # Man Lymphocytes # (Manual) Monocytes # (Manual) Haptoglobin PT APTT D-Dimer Heparin Anti-Xa Level ABG pH ABG pO2 ABG HCO3 ABG O2 Saturation ABG Base Excess ABG Hemoglobin Oxyhemoglobin Sodium Potassium Chloride Carbon Dioxide BUN Creatinine Glucose POC Glucose 119 H 55 L Calcium Phosphorus Magnesium Iron TIBC Ferritin Total Bilirubin AST ALT Lactate Dehydrogenase Total Creatine Kinase Troponin T C-Reactive Protein Albumin Urine WBC (Auto) Urine Creatinine Urine Total Protein Complement C3 Coronavirus (PCR) Hepatitis C Antibody Crossmatch 05/14/21 05/14/21 05/14/21 04:26 05:26 06:51 WBC RBC Hgb Hct MCV MCHC RDW Plt Count Lymph % (Auto) [place] % (Auto) Lymph # (Auto) [place] # (Auto) Seg Neutrophils % Seg Neuts % (Manual) Lymphocytes % (Manual) Monocytes % (Manual) Seg Neutrophils # Seg Neutrophils # Man Lymphocytes # (Manual) Monocytes # (Manual) Haptoglobin PT APTT D-Dimer Heparin Anti-Xa Level ABG pH ABG pO2 ABG HCO3 ABG O2 Saturation ABG Base Excess ABG Hemoglobin Oxyhemoglobin Sodium Potassium 3.4 L Chloride 107.6 H Carbon Dioxide BUN 42 H Creatinine 1.9 H Glucose POC Glucose 51 L 62 L Calcium Phosphorus Magnesium Iron TIBC Ferritin Total Bilirubin AST ALT Lactate Dehydrogenase Total Creatine Kinase Troponin T C-Reactive Protein Albumin Urine WBC (Auto) Urine Creatinine Urine Total Protein Complement C3 Coronavirus (PCR) Hepatitis C Antibody Crossmatch 05/14/21 05/14/21 05/14/21 09:58 12:05 12:08 WBC RBC Hgb Hct MCV MCHC RDW Plt Count Lymph % (Auto) [place] % (Auto) Lymph # (Auto) [place] # (Auto) Seg Neutrophils % Seg Neuts % (Manual) Lymphocytes % (Manual) Monocytes % (Manual) Seg Neutrophils # Seg Neutrophils # Man Lymphocytes # (Manual) Monocytes # (Manual) Haptoglobin PT APTT D-Dimer Heparin Anti-Xa Level ABG pH ABG pO2 ABG HCO3 ABG O2 Saturation ABG Base Excess ABG Hemoglobin Oxyhemoglobin Sodium Potassium 3.4 L Chloride Carbon Dioxide BUN 36 H Creatinine 1.8 H Glucose 133 H POC Glucose 60 L 127 H Calcium Phosphorus Magnesium Iron TIBC Ferritin Total Bilirubin AST ALT Lactate Dehydrogenase Total Creatine Kinase Troponin T C-Reactive Protein Albumin Urine WBC (Auto) Urine Creatinine Urine Total Protein Complement C3 Coronavirus (PCR) Hepatitis C Antibody Crossmatch 05/14/21 05/14/21 05/15/21 17:20 23:37 05:34 WBC RBC Hgb Hct MCV MCHC RDW Plt Count Lymph % (Auto) [place] % (Auto) Lymph # (Auto) [place] # (Auto) Seg Neutrophils % Seg Neuts % (Manual) Lymphocytes % (Manual) Monocytes % (Manual) Seg Neutrophils # Seg Neutrophils # Man Lymphocytes # (Manual) Monocytes # (Manual) Haptoglobin PT APTT D-Dimer Heparin Anti-Xa Level ABG pH ABG pO2 ABG HCO3 ABG O2 Saturation ABG Base Excess ABG Hemoglobin Oxyhemoglobin Sodium Potassium Chloride Carbon Dioxide BUN Creatinine Glucose POC Glucose 144 H 115 H 119 H Calcium Phosphorus Magnesium Iron TIBC Ferritin Total Bilirubin AST ALT Lactate Dehydrogenase Total Creatine Kinase Troponin T C-Reactive Protein Albumin Urine WBC (Auto) Urine Creatinine Urine Total Protein Complement C3 Coronavirus (PCR) Hepatitis C Antibody Crossmatch 05/15/21 05/15/21 05/15/21 07:26 07:26 14:35 WBC 13.8 H RBC 3.32 L Hgb 10.0 L Hct 31.2 L MCV MCHC RDW 16.0 H Plt Count Lymph % (Auto) [place] % (Auto) Lymph # (Auto) [place] # (Auto) Seg Neutrophils % Seg Neuts % (Manual) Lymphocytes % (Manual) Monocytes % (Manual) Seg Neutrophils # Seg Neutrophils # Man Lymphocytes # (Manual) Monocytes # (Manual) Haptoglobin PT APTT D-Dimer Heparin Anti-Xa Level ABG pH ABG pO2 ABG HCO3 ABG O2 Saturation ABG Base Excess ABG Hemoglobin Oxyhemoglobin Sodium 149 H D Potassium 3.5 L Chloride 113.2 H Carbon Dioxide BUN 29 H Creatinine 1.8 H Glucose 113 H POC Glucose 143 H Calcium Phosphorus Magnesium Iron TIBC Ferritin Total Bilirubin AST ALT Lactate Dehydrogenase Total Creatine Kinase Troponin T C-Reactive Protein Albumin Urine WBC (Auto) Urine Creatinine Urine Total Protein Complement C3 Coronavirus (PCR) Hepatitis C Antibody Crossmatch 05/16/21 05/16/21 05/16/21 06:12 08:43 10:05 WBC RBC Hgb Hct MCV MCHC RDW Plt Count Lymph % (Auto) [place] % (Auto) Lymph # (Auto) [place] # (Auto) Seg Neutrophils % Seg Neuts % (Manual) Lymphocytes % (Manual) Monocytes % (Manual) Seg Neutrophils # Seg Neutrophils # Man Lymphocytes # (Manual) Monocytes # (Manual) Haptoglobin PT APTT D-Dimer Heparin Anti-Xa Level 0.21 L ABG pH ABG pO2 240.8 H ABG HCO3 ABG O2 Saturation 99.4 H ABG Base Excess -2.6 L ABG Hemoglobin 10.7 L Oxyhemoglobin Sodium Potassium Chloride Carbon Dioxide BUN Creatinine Glucose POC Glucose 34 L Calcium Phosphorus Magnesium Iron TIBC Ferritin Total Bilirubin AST ALT Lactate Dehydrogenase Total Creatine Kinase Troponin T C-Reactive Protein Albumin Urine WBC (Auto) Urine Creatinine Urine Total Protein Complement C3 Coronavirus (PCR) Hepatitis C Antibody Crossmatch 05/16/21 05/16/21 05/16/21 10:21 10:21 13:14 WBC 27.6 H RBC Hgb 11.4 L Hct MCV 99 H MCHC 30 L RDW 18.1 H Plt Count Lymph % (Auto) [place] % (Auto) Lymph # (Auto) [place] # (Auto) Seg Neutrophils % Seg Neuts % (Manual) 83.0 H Lymphocytes % (Manual) 4.0 L Monocytes % (Manual) 9.0 H Seg Neutrophils # Seg Neutrophils # Man 22.9 H Lymphocytes # (Manual) 1.1 L Monocytes # (Manual) 2.5 H Haptoglobin PT APTT D-Dimer Heparin Anti-Xa Level ABG pH ABG pO2 ABG HCO3 ABG O2 Saturation ABG Base Excess ABG Hemoglobin Oxyhemoglobin Sodium Potassium Chloride 108.8 H Carbon Dioxide 17 L BUN 26 H Creatinine 1.9 H Glucose 141 H POC Glucose Calcium Phosphorus Magnesium Iron TIBC Ferritin Total Bilirubin AST ALT Lactate Dehydrogenase Total Creatine Kinase Troponin T 0.503 H* C-Reactive Protein Albumin 3.1 L Urine WBC (Auto) Urine Creatinine Urine Total Protein Complement C3 Coronavirus (PCR) Hepatitis C Antibody Crossmatch 05/16/21 05/17/21 05/17/21 18:40 00:02 04:52 WBC RBC Hgb 8.8 L Hct 28.5 L D MCV MCHC RDW Plt Count Lymph % (Auto) [place] % (Auto) Lymph # (Auto) [place] # (Auto) Seg Neutrophils % Seg Neuts % (Manual) Lymphocytes % (Manual) Monocytes % (Manual) Seg Neutrophils # Seg Neutrophils # Man Lymphocytes # (Manual) Monocytes # (Manual) Haptoglobin PT APTT D-Dimer Heparin Anti-Xa Level ABG pH ABG pO2 ABG HCO3 ABG O2 Saturation ABG Base Excess ABG Hemoglobin Oxyhemoglobin Sodium Potassium Chloride Carbon Dioxide BUN Creatinine Glucose POC Glucose 114 H Calcium Phosphorus Magnesium Iron TIBC Ferritin Total Bilirubin AST ALT Lactate Dehydrogenase Total Creatine Kinase Troponin T 0.400 H* D C-Reactive Protein Albumin Urine WBC (Auto) Urine Creatinine Urine Total Protein Complement C3 Coronavirus (PCR) Hepatitis C Antibody Crossmatch 05/17/21 05/17/21 05/17/21 04:52 05:15 06:50 WBC RBC Hgb Hct MCV MCHC RDW Plt Count Lymph % (Auto) [place] % (Auto) Lymph # (Auto) [place] # (Auto) Seg Neutrophils % Seg Neuts % (Manual) Lymphocytes % (Manual) Monocytes % (Manual) Seg Neutrophils # Seg Neutrophils # Man Lymphocytes # (Manual) Monocytes # (Manual) Haptoglobin PT APTT D-Dimer Heparin Anti-Xa Level ABG pH ABG pO2 193.7 H ABG HCO3 27.7 H ABG O2 Saturation 99.2 H ABG Base Excess 3.4 H ABG Hemoglobin 9.2 L Oxyhemoglobin Sodium 146 H Potassium Chloride 110.3 H Carbon Dioxide BUN 33 H Creatinine 2.3 H Glucose 120 H POC Glucose 109 H Calcium Phosphorus Magnesium Iron TIBC Ferritin Total Bilirubin AST ALT Lactate Dehydrogenase Total Creatine Kinase Troponin T C-Reactive Protein Albumin Urine WBC (Auto) Urine Creatinine Urine Total Protein Complement C3 Coronavirus (PCR) Hepatitis C Antibody Crossmatch 05/17/21 05/17/21 05/17/21 10:30 11:33 15:35 WBC RBC Hgb Hct MCV MCHC RDW Plt Count Lymph % (Auto) [place] % (Auto) Lymph # (Auto) [place] # (Auto) Seg Neutrophils % Seg Neuts % (Manual) Lymphocytes % (Manual) Monocytes % (Manual) Seg Neutrophils # Seg Neutrophils # Man Lymphocytes # (Manual) Monocytes # (Manual) Haptoglobin PT APTT D-Dimer Heparin Anti-Xa Level ABG pH 7.457 H ABG pO2 162.5 H 103.7 H ABG HCO3 27.7 H 27.5 H ABG O2 Saturation ABG Base Excess 3.6 H ABG Hemoglobin 10.1 L 11.5 L Oxyhemoglobin Sodium Potassium Chloride Carbon Dioxide BUN Creatinine Glucose POC Glucose 122 H Calcium Phosphorus Magnesium Iron TIBC Ferritin Total Bilirubin AST ALT Lactate Dehydrogenase Total Creatine Kinase Troponin T C-Reactive Protein Albumin Urine WBC (Auto) Urine Creatinine Urine Total Protein Complement C3 Coronavirus (PCR) Hepatitis C Antibody Crossmatch 05/17/21 05/17/21 05/17/21 16:21 18:18 23:29 WBC RBC Hgb 9.6 L Hct 30.3 L MCV MCHC RDW Plt Count Lymph % (Auto) [place] % (Auto) Lymph # (Auto) [place] # (Auto) Seg Neutrophils % Seg Neuts % (Manual) Lymphocytes % (Manual) Monocytes % (Manual) Seg Neutrophils # Seg Neutrophils # Man Lymphocytes # (Manual) Monocytes # (Manual) Haptoglobin PT APTT D-Dimer Heparin Anti-Xa Level ABG pH ABG pO2 ABG HCO3 ABG O2 Saturation ABG Base Excess ABG Hemoglobin Oxyhemoglobin Sodium Potassium Chloride Carbon Dioxide BUN Creatinine Glucose POC Glucose 133 H 111 H Calcium Phosphorus Magnesium Iron TIBC Ferritin Total Bilirubin AST ALT Lactate Dehydrogenase Total Creatine Kinase Troponin T C-Reactive Protein Albumin Urine WBC (Auto) Urine Creatinine Urine Total Protein Complement C3 Coronavirus (PCR) Hepatitis C Antibody Crossmatch 05/18/21 05/18/21 05/18/21 04:15 04:15 05:01 WBC 16.8 H RBC 3.03 L Hgb 8.9 L Hct 28.7 L MCV 95 H MCHC 31 L RDW 16.4 H Plt Count Lymph % (Auto) [place] % (Auto) Lymph # (Auto) [place] # (Auto) Seg Neutrophils % Seg Neuts % (Manual) Lymphocytes % (Manual) Monocytes % (Manual) Seg Neutrophils # Seg Neutrophils # Man Lymphocytes # (Manual) Monocytes # (Manual) Haptoglobin PT APTT D-Dimer Heparin Anti-Xa Level ABG pH ABG pO2 ABG HCO3 ABG O2 Saturation ABG Base Excess ABG Hemoglobin Oxyhemoglobin Sodium Potassium Chloride Carbon Dioxide BUN 40 H Creatinine 2.1 H Glucose 115 H POC Glucose 113 H Calcium Phosphorus Magnesium Iron TIBC Ferritin Total Bilirubin AST ALT Lactate Dehydrogenase Total Creatine Kinase Troponin T C-Reactive Protein Albumin Urine WBC (Auto) Urine Creatinine Urine Total Protein Complement C3 Coronavirus (PCR) Hepatitis C Antibody Crossmatch 05/18/21 05/18/21 05/19/21 11:18 12:50 05:23 WBC 18.5 H RBC 3.31 L Hgb 9.9 L Hct 31.1 L MCV MCHC RDW 16.9 H Plt Count Lymph % (Auto) [place] % (Auto) Lymph # (Auto) [place] # (Auto) Seg Neutrophils % Seg Neuts % (Manual) Lymphocytes % (Manual) Monocytes % (Manual) Seg Neutrophils # Seg Neutrophils # Man Lymphocytes # (Manual) Monocytes # (Manual) Haptoglobin PT APTT D-Dimer Heparin Anti-Xa Level ABG pH ABG pO2 79.6 L ABG HCO3 28.0 H ABG O2 Saturation ABG Base Excess 3.3 H ABG Hemoglobin 6.2 L Oxyhemoglobin Sodium Potassium Chloride Carbon Dioxide BUN Creatinine Glucose POC Glucose 129 H Calcium Phosphorus Magnesium Iron TIBC Ferritin Total Bilirubin AST ALT Lactate Dehydrogenase Total Creatine Kinase Troponin T C-Reactive Protein Albumin Urine WBC (Auto) Urine Creatinine Urine Total Protein Complement C3 Coronavirus (PCR) Hepatitis C Antibody Crossmatch 05/19/21 05/19/21 05/19/21 05:23 05:23 11:24 WBC RBC Hgb Hct MCV MCHC RDW Plt Count Lymph % (Auto) [place] % (Auto) Lymph # (Auto) [place] # (Auto) Seg Neutrophils % Seg Neuts % (Manual) Lymphocytes % (Manual) Monocytes % (Manual) Seg Neutrophils # Seg Neutrophils # Man Lymphocytes # (Manual) Monocytes # (Manual) Haptoglobin PT APTT D-Dimer Heparin Anti-Xa Level ABG pH ABG pO2 ABG HCO3 ABG O2 Saturation ABG Base Excess ABG Hemoglobin Oxyhemoglobin Sodium Potassium Chloride Carbon Dioxide BUN 35 H 34 H Creatinine 2.0 H 2.1 H Glucose POC Glucose 111 H Calcium Phosphorus Magnesium Iron TIBC Ferritin Total Bilirubin AST ALT Lactate Dehydrogenase Total Creatine Kinase Troponin T C-Reactive Protein Albumin Urine WBC (Auto) Urine Creatinine Urine Total Protein Complement C3 Coronavirus (PCR) Hepatitis C Antibody Crossmatch 05/19/21 05/19/21 05/19/21 16:33 19:36 23:47 WBC RBC Hgb Hct MCV MCHC RDW Plt Count Lymph % (Auto) [place] % (Auto) Lymph # (Auto) [place] # (Auto) Seg Neutrophils % Seg Neuts % (Manual) Lymphocytes % (Manual) Monocytes % (Manual) Seg Neutrophils # Seg Neutrophils # Man Lymphocytes # (Manual) Monocytes # (Manual) Haptoglobin PT APTT 72.5 H* D-Dimer Heparin Anti-Xa Level ABG pH ABG pO2 ABG HCO3 ABG O2 Saturation ABG Base Excess ABG Hemoglobin Oxyhemoglobin Sodium Potassium Chloride Carbon Dioxide BUN Creatinine Glucose POC Glucose 131 H 122 H Calcium Phosphorus Magnesium Iron TIBC Ferritin Total Bilirubin AST ALT Lactate Dehydrogenase Total Creatine Kinase Troponin T C-Reactive Protein Albumin Urine WBC (Auto) Urine Creatinine Urine Total Protein Complement C3 Coronavirus (PCR) Hepatitis C Antibody Crossmatch 05/20/21 05/20/21 05/20/21 05:14 05:14 06:12 WBC 19.7 H RBC 3.19 L Hgb 9.5 L Hct 29.9 L MCV MCHC RDW 17.3 H Plt Count Lymph % (Auto) [place] % (Auto) Lymph # (Auto) [place] # (Auto) Seg Neutrophils % Seg Neuts % (Manual) Lymphocytes % (Manual) Monocytes % (Manual) Seg Neutrophils # Seg Neutrophils # Man Lymphocytes # (Manual) Monocytes # (Manual) Haptoglobin PT APTT D-Dimer Heparin Anti-Xa Level ABG pH ABG pO2 ABG HCO3 ABG O2 Saturation ABG Base Excess ABG Hemoglobin Oxyhemoglobin Sodium Potassium Chloride Carbon Dioxide BUN 31 H Creatinine 2.1 H Glucose 130 H POC Glucose 120 H Calcium Phosphorus Magnesium Iron TIBC Ferritin Total Bilirubin AST ALT Lactate Dehydrogenase Total Creatine Kinase Troponin T C-Reactive Protein Albumin Urine WBC (Auto) Urine Creatinine Urine Total Protein Complement C3 Coronavirus (PCR) Hepatitis C Antibody Crossmatch 05/20/21 05/20/21 05/20/21 11:10 18:12 23:55 WBC RBC Hgb Hct MCV MCHC RDW Plt Count Lymph % (Auto) [place] % (Auto) Lymph # (Auto) [place] # (Auto) Seg Neutrophils % Seg Neuts % (Manual) Lymphocytes % (Manual) Monocytes % (Manual) Seg Neutrophils # Seg Neutrophils # Man Lymphocytes # (Manual) Monocytes # (Manual) Haptoglobin PT APTT D-Dimer Heparin Anti-Xa Level ABG pH ABG pO2 ABG HCO3 ABG O2 Saturation ABG Base Excess ABG Hemoglobin Oxyhemoglobin Sodium Potassium Chloride Carbon Dioxide BUN Creatinine Glucose POC Glucose 152 H 137 H 146 H Calcium Phosphorus Magnesium Iron TIBC Ferritin Total Bilirubin AST ALT Lactate Dehydrogenase Total Creatine Kinase Troponin T C-Reactive Protein Albumin Urine WBC (Auto) Urine Creatinine Urine Total Protein Complement C3 Coronavirus (PCR) Hepatitis C Antibody Crossmatch 05/21/21 05/21/21 05/21/21 03:12 03:12 05:53 WBC 26.2 H RBC 2.58 L Hgb 7.7 L Hct 24.2 L MCV MCHC RDW 17.8 H Plt Count Lymph % (Auto) [place] % (Auto) Lymph # (Auto) [place] # (Auto) Seg Neutrophils % Seg Neuts % (Manual) Lymphocytes % (Manual) Monocytes % (Manual) Seg Neutrophils # Seg Neutrophils # Man Lymphocytes # (Manual) Monocytes # (Manual) Haptoglobin PT APTT D-Dimer Heparin Anti-Xa Level ABG pH ABG pO2 ABG HCO3 ABG O2 Saturation ABG Base Excess ABG Hemoglobin Oxyhemoglobin Sodium 133 L Potassium 5.7 H D Chloride Carbon Dioxide 21 L BUN 49 H Creatinine 2.6 H Glucose 160 H POC Glucose 118 H Calcium Phosphorus Magnesium Iron TIBC Ferritin Total Bilirubin AST ALT Lactate Dehydrogenase Total Creatine Kinase Troponin T C-Reactive Protein Albumin Urine WBC (Auto) Urine Creatinine Urine Total Protein Complement C3 Coronavirus (PCR) Hepatitis C Antibody Crossmatch 05/21/21 05/22/21 05/22/21 18:00 00:13 05:05 WBC RBC Hgb Hct MCV MCHC RDW Plt Count Lymph % (Auto) [place] % (Auto) Lymph # (Auto) [place] # (Auto) Seg Neutrophils % Seg Neuts % (Manual) Lymphocytes % (Manual) Monocytes % (Manual) Seg Neutrophils # Seg Neutrophils # Man Lymphocytes # (Manual) Monocytes # (Manual) Haptoglobin PT APTT D-Dimer Heparin Anti-Xa Level ABG pH 7.500 H ABG pO2 56.6 L ABG HCO3 ABG O2 Saturation ABG Base Excess ABG Hemoglobin 6.7 L Oxyhemoglobin 94.8 L Sodium 136 L Potassium 5.2 H Chloride Carbon Dioxide BUN 59 H Creatinine 2.6 H Glucose 138 H POC Glucose 109 H Calcium Phosphorus Magnesium Iron TIBC Ferritin Total Bilirubin AST ALT Lactate Dehydrogenase Total Creatine Kinase Troponin T C-Reactive Protein Albumin Urine WBC (Auto) Urine Creatinine Urine Total Protein Complement C3 Coronavirus (PCR) Hepatitis C Antibody Crossmatch 05/22/21 05/22/21 05/22/21 06:07 11:49 16:33 WBC RBC Hgb Hct MCV MCHC RDW Plt Count Lymph % (Auto) [place] % (Auto) Lymph # (Auto) [place] # (Auto) Seg Neutrophils % Seg Neuts % (Manual) Lymphocytes % (Manual) Monocytes % (Manual) Seg Neutrophils # Seg Neutrophils # Man Lymphocytes # (Manual) Monocytes # (Manual) Haptoglobin PT APTT D-Dimer Heparin Anti-Xa Level ABG pH ABG pO2 ABG HCO3 ABG O2 Saturation ABG Base Excess ABG Hemoglobin Oxyhemoglobin Sodium Potassium Chloride Carbon Dioxide BUN Creatinine Glucose POC Glucose 110 H 117 H 119 H Calcium Phosphorus Magnesium Iron TIBC Ferritin Total Bilirubin AST ALT Lactate Dehydrogenase Total Creatine Kinase Troponin T C-Reactive Protein Albumin Urine WBC (Auto) Urine Creatinine Urine Total Protein Complement C3 Coronavirus (PCR) Hepatitis C Antibody Crossmatch 05/23/21 05/23/21 05/23/21 04:48 04:48 07:12 WBC 21.1 H RBC 2.03 L Hgb 6.2 L Hct 19.4 L* MCV 96 H MCHC RDW 17.5 H Plt Count Lymph % (Auto) [place] % (Auto) Lymph # (Auto) [place] # (Auto) Seg Neutrophils % Seg Neuts % (Manual) Lymphocytes % (Manual) Monocytes % (Manual) Seg Neutrophils # Seg Neutrophils # Man Lymphocytes # (Manual) Monocytes # (Manual) Haptoglobin PT APTT D-Dimer Heparin Anti-Xa Level ABG pH ABG pO2 ABG HCO3 ABG O2 Saturation ABG Base Excess ABG Hemoglobin Oxyhemoglobin Sodium Potassium Chloride Carbon Dioxide BUN 62 H Creatinine 2.8 H Glucose 110 H POC Glucose Calcium Phosphorus Magnesium Iron TIBC Ferritin Total Bilirubin AST ALT Lactate Dehydrogenase Total Creatine Kinase Troponin T C-Reactive Protein Albumin Urine WBC (Auto) Urine Creatinine Urine Total Protein Complement C3 Coronavirus (PCR) Hepatitis C Antibody Crossmatch See Detail 05/23/21 05/23/21 05/23/21 11:19 14:15 16:12 WBC RBC Hgb Hct MCV MCHC RDW Plt Count Lymph % (Auto) [place] % (Auto) Lymph # (Auto) [place] # (Auto) Seg Neutrophils % Seg Neuts % (Manual) Lymphocytes % (Manual) Monocytes % (Manual) Seg Neutrophils # Seg Neutrophils # Man Lymphocytes # (Manual) Monocytes # (Manual) Haptoglobin PT APTT D-Dimer Heparin Anti-Xa Level ABG pH ABG pO2 294.7 H ABG HCO3 ABG O2 Saturation 99.5 H ABG Base Excess ABG Hemoglobin 6.5 L Oxyhemoglobin Sodium Potassium Chloride Carbon Dioxide BUN Creatinine Glucose POC Glucose 127 H 120 H Calcium Phosphorus Magnesium Iron TIBC Ferritin Total Bilirubin AST ALT Lactate Dehydrogenase Total Creatine Kinase Troponin T C-Reactive Protein Albumin Urine WBC (Auto) Urine Creatinine Urine Total Protein Complement C3 Coronavirus (PCR) Hepatitis C Antibody Crossmatch 05/23/21 05/23/21 05/23/21 16:30 16:30 18:54 WBC RBC Hgb Hct MCV MCHC RDW Plt Count Lymph % (Auto) [place] % (Auto) Lymph # (Auto) [place] # (Auto) Seg Neutrophils % Seg Neuts % (Manual) Lymphocytes % (Manual) Monocytes % (Manual) Seg Neutrophils # Seg Neutrophils # Man Lymphocytes # (Manual) Monocytes # (Manual) Haptoglobin 254 H PT APTT D-Dimer Heparin Anti-Xa Level ABG pH ABG pO2 ABG HCO3 ABG O2 Saturation ABG Base Excess ABG Hemoglobin Oxyhemoglobin Sodium Potassium Chloride Carbon Dioxide BUN Creatinine Glucose POC Glucose Calcium Phosphorus Magnesium Iron TIBC Ferritin Total Bilirubin AST ALT Lactate Dehydrogenase Total Creatine Kinase Troponin T C-Reactive Protein Albumin Urine WBC (Auto) 12.0 H Urine Creatinine 100.1 H Urine Total Protein Complement C3 Coronavirus (PCR) Hepatitis C Antibody Crossmatch 05/23/21 05/23/21 05/24/21 18:54 Unknown 00:11 WBC 21.7 H RBC 2.40 L Hgb 7.1 L Hct 22.9 L MCV 96 H MCHC 31 L RDW 16.8 H Plt Count Lymph % (Auto) [place] % (Auto) Lymph # (Auto) [place] # (Auto) Seg Neutrophils % Seg Neuts % (Manual) Lymphocytes % (Manual) Monocytes % (Manual) Seg Neutrophils # Seg Neutrophils # Man Lymphocytes # (Manual) Monocytes # (Manual) Haptoglobin PT APTT D-Dimer Heparin Anti-Xa Level ABG pH ABG pO2 ABG HCO3 ABG O2 Saturation ABG Base Excess ABG Hemoglobin Oxyhemoglobin Sodium Potassium Chloride Carbon Dioxide BUN Creatinine Glucose POC Glucose 110 H Calcium Phosphorus Magnesium Iron 10 L TIBC 151 L Ferritin Total Bilirubin AST ALT Lactate Dehydrogenase 311 H Total Creatine Kinase Troponin T C-Reactive Protein Albumin Urine WBC (Auto) Urine Creatinine Urine Total Protein Complement C3 Coronavirus (PCR) Hepatitis C Antibody Crossmatch 05/24/21 05/24/21 05/24/21 04:11 04:11 05:10 WBC 16.7 H RBC 2.19 L Hgb 6.4 L Hct 20.5 L MCV MCHC 31 L RDW 17.0 H Plt Count Lymph % (Auto) [place] % (Auto) Lymph # (Auto) [place] # (Auto) Seg Neutrophils % Seg Neuts % (Manual) Lymphocytes % (Manual) Monocytes % (Manual) Seg Neutrophils # Seg Neutrophils # Man Lymphocytes # (Manual) Monocytes # (Manual) Haptoglobin PT APTT D-Dimer Heparin Anti-Xa Level ABG pH ABG pO2 ABG HCO3 ABG O2 Saturation ABG Base Excess ABG Hemoglobin Oxyhemoglobin Sodium Potassium Chloride Carbon Dioxide BUN 78 H Creatinine 2.8 H Glucose 119 H POC Glucose 108 H Calcium Phosphorus 5.30 H Magnesium 2.60 H Iron TIBC Ferritin Total Bilirubin AST 152 H ALT 125 H Lactate Dehydrogenase Total Creatine Kinase Troponin T C-Reactive Protein Albumin 2.5 L Urine WBC (Auto) Urine Creatinine Urine Total Protein Complement C3 Coronavirus (PCR) Hepatitis C Antibody Crossmatch 05/24/21 05/25/21 05/25/21 09:55 04:25 04:25 WBC 13.8 H RBC 2.78 L Hgb 8.3 L Hct 25.6 L MCV MCHC RDW 16.2 H Plt Count Lymph % (Auto) [place] % (Auto) Lymph # (Auto) [place] # (Auto) Seg Neutrophils % Seg Neuts % (Manual) Lymphocytes % (Manual) Monocytes % (Manual) Seg Neutrophils # Seg Neutrophils # Man Lymphocytes # (Manual) Monocytes # (Manual) Haptoglobin PT APTT D-Dimer Heparin Anti-Xa Level ABG pH ABG pO2 141.9 H ABG HCO3 ABG O2 Saturation ABG Base Excess ABG Hemoglobin 6.5 L Oxyhemoglobin Sodium Potassium Chloride Carbon Dioxide BUN 76 H Creatinine 2.6 H Glucose 110 H POC Glucose Calcium 8.1 L Phosphorus Magnesium Iron TIBC Ferritin Total Bilirubin AST ALT Lactate Dehydrogenase Total Creatine Kinase Troponin T C-Reactive Protein Albumin Urine WBC (Auto) Urine Creatinine Urine Total Protein Complement C3 Coronavirus (PCR) Hepatitis C Antibody Crossmatch 05/25/21 05/25/21 05/25/21 05:19 09:40 17:11 WBC RBC Hgb Hct MCV MCHC RDW Plt Count Lymph % (Auto) [place] % (Auto) Lymph # (Auto) [place] # (Auto) Seg Neutrophils % Seg Neuts % (Manual) Lymphocytes % (Manual) Monocytes % (Manual) Seg Neutrophils # Seg Neutrophils # Man Lymphocytes # (Manual) Monocytes # (Manual) Haptoglobin PT APTT D-Dimer Heparin Anti-Xa Level ABG pH ABG pO2 150.9 H ABG HCO3 ABG O2 Saturation ABG Base Excess ABG Hemoglobin 7.0 L Oxyhemoglobin Sodium Potassium Chloride Carbon Dioxide BUN Creatinine Glucose POC Glucose 123 H 108 H Calcium Phosphorus Magnesium Iron TIBC Ferritin Total Bilirubin AST ALT Lactate Dehydrogenase Total Creatine Kinase Troponin T C-Reactive Protein Albumin Urine WBC (Auto) Urine Creatinine Urine Total Protein Complement C3 Coronavirus (PCR) Hepatitis C Antibody Crossmatch 05/25/21 05/26/21 05/26/21 23:37 05:02 07:09 WBC RBC Hgb Hct MCV MCHC RDW Plt Count Lymph % (Auto) [place] % (Auto) Lymph # (Auto) [place] # (Auto) Seg Neutrophils % Seg Neuts % (Manual) Lymphocytes % (Manual) Monocytes % (Manual) Seg Neutrophils # Seg Neutrophils # Man Lymphocytes # (Manual) Monocytes # (Manual) Haptoglobin PT APTT D-Dimer Heparin Anti-Xa Level ABG pH ABG pO2 ABG HCO3 ABG O2 Saturation ABG Base Excess ABG Hemoglobin Oxyhemoglobin Sodium Potassium Chloride Carbon Dioxide BUN 62 H Creatinine 2.1 H Glucose 112 H POC Glucose 117 H 112 H Calcium 8.2 L Phosphorus Magnesium Iron TIBC Ferritin Total Bilirubin AST ALT Lactate Dehydrogenase Total Creatine Kinase Troponin T C-Reactive Protein Albumin Urine WBC (Auto) Urine Creatinine Urine Total Protein Complement C3 Coronavirus (PCR) Hepatitis C Antibody Crossmatch 05/26/21 05/26/21 05/26/21 07:09 09:10 09:50 WBC 15.8 H RBC 3.21 L Hgb 9.2 L Hct 29.6 L MCV MCHC 31 L RDW 16.6 H Plt Count Lymph % (Auto) [place] % (Auto) Lymph # (Auto) [place] # (Auto) Seg Neutrophils % Seg Neuts % (Manual) Lymphocytes % (Manual) Monocytes % (Manual) Seg Neutrophils # Seg Neutrophils # Man Lymphocytes # (Manual) Monocytes # (Manual) Haptoglobin PT APTT D-Dimer Heparin Anti-Xa Level ABG pH ABG pO2 135.5 H ABG HCO3 ABG O2 Saturation ABG Base Excess ABG Hemoglobin 9.6 L Oxyhemoglobin Sodium Potassium Chloride Carbon Dioxide BUN Creatinine Glucose POC Glucose Calcium Phosphorus Magnesium Iron TIBC Ferritin Total Bilirubin AST ALT Lactate Dehydrogenase Total Creatine Kinase Troponin T C-Reactive Protein Albumin Urine WBC (Auto) 38.0 H Urine Creatinine Urine Total Protein Complement C3 Coronavirus (PCR) Hepatitis C Antibody Crossmatch 05/26/21 05/26/21 05/27/21 11:20 18:24 00:24 WBC RBC Hgb Hct MCV MCHC RDW Plt Count Lymph % (Auto) [place] % (Auto) Lymph # (Auto) [place] # (Auto) Seg Neutrophils % Seg Neuts % (Manual) Lymphocytes % (Manual) Monocytes % (Manual) Seg Neutrophils # Seg Neutrophils # Man Lymphocytes # (Manual) Monocytes # (Manual) Haptoglobin PT APTT D-Dimer Heparin Anti-Xa Level ABG pH ABG pO2 ABG HCO3 ABG O2 Saturation ABG Base Excess ABG Hemoglobin Oxyhemoglobin Sodium Potassium Chloride Carbon Dioxide BUN Creatinine Glucose POC Glucose 109 H 116 H 115 H Calcium Phosphorus Magnesium Iron TIBC Ferritin Total Bilirubin AST ALT Lactate Dehydrogenase Total Creatine Kinase Troponin T C-Reactive Protein Albumin Urine WBC (Auto) Urine Creatinine Urine Total Protein Complement C3 Coronavirus (PCR) Hepatitis C Antibody Crossmatch 05/27/21 05/27/21 05/27/21 05:12 07:47 07:47 WBC 15.5 H RBC 2.86 L Hgb 8.8 L Hct 26.1 L MCV MCHC RDW 16.1 H Plt Count Lymph % (Auto) [place] % (Auto) Lymph # (Auto) [place] # (Auto) Seg Neutrophils % Seg Neuts % (Manual) Lymphocytes % (Manual) Monocytes % (Manual) Seg Neutrophils # Seg Neutrophils # Man Lymphocytes # (Manual) Monocytes # (Manual) Haptoglobin PT APTT D-Dimer Heparin Anti-Xa Level ABG pH ABG pO2 ABG HCO3 ABG O2 Saturation ABG Base Excess ABG Hemoglobin Oxyhemoglobin Sodium Potassium Chloride 107.3 H Carbon Dioxide BUN 56 H Creatinine 1.8 H Glucose 108 H POC Glucose 108 H Calcium 8.1 L Phosphorus Magnesium Iron TIBC Ferritin Total Bilirubin AST ALT Lactate Dehydrogenase Total Creatine Kinase Troponin T C-Reactive Protein Albumin Urine WBC (Auto) Urine Creatinine Urine Total Protein Complement C3 Coronavirus (PCR) Hepatitis C Antibody Crossmatch 05/27/21 05/27/21 05/28/21 09:20 18:01 00:09 WBC RBC Hgb Hct MCV MCHC RDW Plt Count Lymph % (Auto) [place] % (Auto) Lymph # (Auto) [place] # (Auto) Seg Neutrophils % Seg Neuts % (Manual) Lymphocytes % (Manual) Monocytes % (Manual) Seg Neutrophils # Seg Neutrophils # Man Lymphocytes # (Manual) Monocytes # (Manual) Haptoglobin PT APTT D-Dimer Heparin Anti-Xa Level ABG pH ABG pO2 115.2 H ABG HCO3 ABG O2 Saturation ABG Base Excess ABG Hemoglobin 9.2 L Oxyhemoglobin Sodium Potassium Chloride Carbon Dioxide BUN Creatinine Glucose POC Glucose 109 H 114 H Calcium Phosphorus Magnesium Iron TIBC Ferritin Total Bilirubin AST ALT Lactate Dehydrogenase Total Creatine Kinase Troponin T C-Reactive Protein Albumin Urine WBC (Auto) Urine Creatinine Urine Total Protein Complement C3 Coronavirus (PCR) Hepatitis C Antibody Crossmatch 05/28/21 05/28/21 05/28/21 04:04 04:04 04:04 WBC 14.1 H RBC 2.87 L Hgb 8.6 L Hct 26.5 L MCV MCHC RDW 15.9 H Plt Count Lymph % (Auto) [place] % (Auto) Lymph # (Auto) [place] # (Auto) Seg Neutrophils % Seg Neuts % (Manual) 93.0 H Lymphocytes % (Manual) 2.0 L Monocytes % (Manual) Seg Neutrophils # Seg Neutrophils # Man 13.1 H Lymphocytes # (Manual) 0.3 L Monocytes # (Manual) Haptoglobin PT APTT D-Dimer Heparin Anti-Xa Level ABG pH ABG pO2 ABG HCO3 ABG O2 Saturation ABG Base Excess ABG Hemoglobin Oxyhemoglobin Sodium Potassium Chloride Carbon Dioxide BUN 54 H Creatinine 1.7 H Glucose 116 H POC Glucose Calcium 7.7 L Phosphorus Magnesium Iron TIBC Ferritin Total Bilirubin AST ALT Lactate Dehydrogenase Total Creatine Kinase Troponin T C-Reactive Protein 13.20 H Albumin Urine WBC (Auto) Urine Creatinine Urine Total Protein Complement C3 Coronavirus (PCR) Hepatitis C Antibody Crossmatch 05/28/21 05/28/21 05/28/21 05:32 12:06 17:30 WBC RBC Hgb Hct MCV MCHC RDW Plt Count Lymph % (Auto) [place] % (Auto) Lymph # (Auto) [place] # (Auto) Seg Neutrophils % Seg Neuts % (Manual) Lymphocytes % (Manual) Monocytes % (Manual) Seg Neutrophils # Seg Neutrophils # Man Lymphocytes # (Manual) Monocytes # (Manual) Haptoglobin PT APTT D-Dimer Heparin Anti-Xa Level ABG pH ABG pO2 ABG HCO3 ABG O2 Saturation ABG Base Excess ABG Hemoglobin Oxyhemoglobin Sodium Potassium Chloride Carbon Dioxide BUN Creatinine Glucose POC Glucose 119 H 112 H 114 H Calcium Phosphorus Magnesium Iron TIBC Ferritin Total Bilirubin AST ALT Lactate Dehydrogenase Total Creatine Kinase Troponin T C-Reactive Protein Albumin Urine WBC (Auto) Urine Creatinine Urine Total Protein Complement C3 Coronavirus (PCR) Hepatitis C Antibody Crossmatch 05/28/21 05/29/21 05/29/21 23:46 05:16 11:16 WBC 12.2 H RBC 2.94 L Hgb 8.7 L Hct 27.2 L MCV MCHC RDW 15.8 H Plt Count Lymph % (Auto) [place] % (Auto) Lymph # (Auto) [place] # (Auto) Seg Neutrophils % Seg Neuts % (Manual) Lymphocytes % (Manual) Monocytes % (Manual) Seg Neutrophils # Seg Neutrophils # Man Lymphocytes # (Manual) Monocytes # (Manual) Haptoglobin PT APTT D-Dimer Heparin Anti-Xa Level ABG pH ABG pO2 ABG HCO3 ABG O2 Saturation ABG Base Excess ABG Hemoglobin Oxyhemoglobin Sodium Potassium Chloride Carbon Dioxide BUN Creatinine Glucose POC Glucose 108 H 113 H Calcium Phosphorus Magnesium Iron TIBC Ferritin Total Bilirubin AST ALT Lactate Dehydrogenase Total Creatine Kinase Troponin T C-Reactive Protein Albumin Urine WBC (Auto) Urine Creatinine Urine Total Protein Complement C3 Coronavirus (PCR) Hepatitis C Antibody Crossmatch 05/29/21 05/29/21 05/29/21 11:16 17:25 23:26 WBC RBC Hgb Hct MCV MCHC RDW Plt Count Lymph % (Auto) [place] % (Auto) Lymph # (Auto) [place] # (Auto) Seg Neutrophils % Seg Neuts % (Manual) Lymphocytes % (Manual) Monocytes % (Manual) Seg Neutrophils # Seg Neutrophils # Man Lymphocytes # (Manual) Monocytes # (Manual) Haptoglobin PT APTT D-Dimer Heparin Anti-Xa Level ABG pH ABG pO2 ABG HCO3 ABG O2 Saturation ABG Base Excess ABG Hemoglobin Oxyhemoglobin Sodium Potassium Chloride Carbon Dioxide BUN 50 H Creatinine 1.5 H Glucose 117 H POC Glucose 115 H 110 H Calcium 8.0 L Phosphorus Magnesium Iron TIBC Ferritin Total Bilirubin AST ALT Lactate Dehydrogenase Total Creatine Kinase Troponin T C-Reactive Protein Albumin Urine WBC (Auto) Urine Creatinine Urine Total Protein Complement C3 Coronavirus (PCR) Hepatitis C Antibody Crossmatch 05/30/21 05/30/21 05/30/21 05:07 05:11 11:30 WBC RBC Hgb Hct MCV MCHC RDW Plt Count Lymph % (Auto) [place] % (Auto) Lymph # (Auto) [place] # (Auto) Seg Neutrophils % Seg Neuts % (Manual) Lymphocytes % (Manual) Monocytes % (Manual) Seg Neutrophils # Seg Neutrophils # Man Lymphocytes # (Manual) Monocytes # (Manual) Haptoglobin PT APTT D-Dimer Heparin Anti-Xa Level ABG pH ABG pO2 ABG HCO3 ABG O2 Saturation ABG Base Excess ABG Hemoglobin Oxyhemoglobin Sodium Potassium Chloride Carbon Dioxide BUN 55 H Creatinine 1.5 H Glucose 129 H POC Glucose 113 H 110 H Calcium 8.2 L Phosphorus Magnesium Iron TIBC Ferritin Total Bilirubin AST ALT Lactate Dehydrogenase Total Creatine Kinase Troponin T C-Reactive Protein Albumin Urine WBC (Auto) Urine Creatinine Urine Total Protein Complement C3 Coronavirus (PCR) Hepatitis C Antibody Crossmatch 05/30/21 05/31/21 05/31/21 17:53 04:11 04:11 WBC RBC 3.12 L Hgb 9.3 L Hct 28.8 L MCV MCHC RDW 16.1 H Plt Count Lymph % (Auto) [place] % (Auto) Lymph # (Auto) [place] # (Auto) Seg Neutrophils % Seg Neuts % (Manual) Lymphocytes % (Manual) Monocytes % (Manual) Seg Neutrophils # Seg Neutrophils # Man Lymphocytes # (Manual) Monocytes # (Manual) Haptoglobin PT APTT D-Dimer Heparin Anti-Xa Level ABG pH ABG pO2 ABG HCO3 ABG O2 Saturation ABG Base Excess ABG Hemoglobin Oxyhemoglobin Sodium Potassium Chloride Carbon Dioxide BUN 50 H Creatinine 1.4 H Glucose 117 H POC Glucose 107 H Calcium 8.0 L Phosphorus Magnesium Iron TIBC Ferritin Total Bilirubin AST ALT Lactate Dehydrogenase Total Creatine Kinase Troponin T C-Reactive Protein Albumin Urine WBC (Auto) Urine Creatinine Urine Total Protein Complement C3 Coronavirus (PCR) Hepatitis C Antibody Crossmatch 05/31/21 05/31/21 06/01/21 11:36 18:27 04:56 WBC RBC 3.14 L Hgb 9.1 L Hct 29.0 L MCV MCHC RDW 16.3 H Plt Count Lymph % (Auto) [place] % (Auto) Lymph # (Auto) [place] # (Auto) Seg Neutrophils % Seg Neuts % (Manual) Lymphocytes % (Manual) Monocytes % (Manual) Seg Neutrophils # Seg Neutrophils # Man Lymphocytes # (Manual) Monocytes # (Manual) Haptoglobin PT APTT D-Dimer Heparin Anti-Xa Level ABG pH ABG pO2 ABG HCO3 ABG O2 Saturation ABG Base Excess ABG Hemoglobin Oxyhemoglobin Sodium Potassium Chloride Carbon Dioxide BUN Creatinine Glucose POC Glucose 109 H 111 H Calcium Phosphorus Magnesium Iron TIBC Ferritin Total Bilirubin AST ALT Lactate Dehydrogenase Total Creatine Kinase Troponin T C-Reactive Protein Albumin Urine WBC (Auto) Urine Creatinine Urine Total Protein Complement C3 Coronavirus (PCR) Hepatitis C Antibody Crossmatch 06/01/21 06/01/21 06/01/21 04:56 06:10 11:04 WBC RBC Hgb Hct MCV MCHC RDW Plt Count Lymph % (Auto) [place] % (Auto) Lymph # (Auto) [place] # (Auto) Seg Neutrophils % Seg Neuts % (Manual) Lymphocytes % (Manual) Monocytes % (Manual) Seg Neutrophils # Seg Neutrophils # Man Lymphocytes # (Manual) Monocytes # (Manual) Haptoglobin PT APTT D-Dimer Heparin Anti-Xa Level ABG pH ABG pO2 ABG HCO3 ABG O2 Saturation ABG Base Excess ABG Hemoglobin Oxyhemoglobin Sodium Potassium Chloride 108.4 H Carbon Dioxide BUN 49 H Creatinine Glucose 113 H POC Glucose 107 H 122 H Calcium 8.0 L Phosphorus Magnesium Iron TIBC Ferritin Total Bilirubin AST ALT Lactate Dehydrogenase Total Creatine Kinase Troponin T C-Reactive Protein Albumin Urine WBC (Auto) Urine Creatinine Urine Total Protein Complement C3 Coronavirus (PCR) Hepatitis C Antibody Crossmatch 06/01/21 06/01/21 06/02/21 15:50 23:19 04:06 WBC RBC Hgb Hct MCV MCHC RDW Plt Count Lymph % (Auto) [place] % (Auto) Lymph # (Auto) [place] # (Auto) Seg Neutrophils % Seg Neuts % (Manual) Lymphocytes % (Manual) Monocytes % (Manual) Seg Neutrophils # Seg Neutrophils # Man Lymphocytes # (Manual) Monocytes # (Manual) Haptoglobin PT APTT D-Dimer Heparin Anti-Xa Level ABG pH ABG pO2 ABG HCO3 ABG O2 Saturation ABG Base Excess ABG Hemoglobin Oxyhemoglobin Sodium Potassium Chloride Carbon Dioxide BUN 46 H Creatinine Glucose 121 H POC Glucose 111 H 117 H Calcium Phosphorus Magnesium Iron TIBC Ferritin Total Bilirubin AST ALT Lactate Dehydrogenase Total Creatine Kinase Troponin T C-Reactive Protein Albumin Urine WBC (Auto) Urine Creatinine Urine Total Protein Complement C3 Coronavirus (PCR) Hepatitis C Antibody Crossmatch 06/02/21 06/02/21 06/02/21 05:08 11:06 15:40 WBC RBC Hgb Hct MCV MCHC RDW Plt Count Lymph % (Auto) [place] % (Auto) Lymph # (Auto) [place] # (Auto) Seg Neutrophils % Seg Neuts % (Manual) Lymphocytes % (Manual) Monocytes % (Manual) Seg Neutrophils # Seg Neutrophils # Man Lymphocytes # (Manual) Monocytes # (Manual) Haptoglobin PT APTT D-Dimer Heparin Anti-Xa Level ABG pH ABG pO2 ABG HCO3 ABG O2 Saturation ABG Base Excess ABG Hemoglobin Oxyhemoglobin Sodium Potassium Chloride Carbon Dioxide BUN Creatinine Glucose POC Glucose 120 H 119 H 125 H Calcium Phosphorus Magnesium Iron TIBC Ferritin Total Bilirubin AST ALT Lactate Dehydrogenase Total Creatine Kinase Troponin T C-Reactive Protein Albumin Urine WBC (Auto) Urine Creatinine Urine Total Protein Complement C3 Coronavirus (PCR) Hepatitis C Antibody Crossmatch 06/02/21 06/03/21 06/03/21 23:27 04:15 04:15 WBC RBC 3.40 L Hgb 10.0 L Hct 31.3 L MCV MCHC RDW 16.0 H Plt Count 463 H Lymph % (Auto) [place] % (Auto) Lymph # (Auto) [place] # (Auto) Seg Neutrophils % Seg Neuts % (Manual) Lymphocytes % (Manual) Monocytes % (Manual) Seg Neutrophils # Seg Neutrophils # Man Lymphocytes # (Manual) Monocytes # (Manual) Haptoglobin PT APTT D-Dimer Heparin Anti-Xa Level ABG pH ABG pO2 ABG HCO3 ABG O2 Saturation ABG Base Excess ABG Hemoglobin Oxyhemoglobin Sodium Potassium Chloride Carbon Dioxide BUN 44 H Creatinine Glucose 115 H POC Glucose 115 H Calcium Phosphorus Magnesium Iron TIBC Ferritin Total Bilirubin AST ALT Lactate Dehydrogenase Total Creatine Kinase Troponin T C-Reactive Protein Albumin Urine WBC (Auto) Urine Creatinine Urine Total Protein Complement C3 Coronavirus (PCR) Hepatitis C Antibody Crossmatch 06/03/21 10:52 WBC RBC Hgb Hct MCV MCHC RDW Plt Count Lymph % (Auto) [place] % (Auto) Lymph # (Auto) [place] # (Auto) Seg Neutrophils % Seg Neuts % (Manual) Lymphocytes % (Manual) Monocytes % (Manual) Seg Neutrophils # Seg Neutrophils # Man Lymphocytes # (Manual) Monocytes # (Manual) Haptoglobin PT APTT D-Dimer Heparin Anti-Xa Level ABG pH ABG pO2 ABG HCO3 ABG O2 Saturation ABG Base Excess ABG Hemoglobin Oxyhemoglobin Sodium Potassium Chloride Carbon Dioxide BUN Creatinine Glucose POC Glucose 113 H Calcium Phosphorus Magnesium Iron TIBC Ferritin Total Bilirubin AST ALT Lactate Dehydrogenase Total Creatine Kinase Troponin T C-Reactive Protein Albumin Urine WBC (Auto) Urine Creatinine Urine Total Protein Complement C3 Coronavirus (PCR) Hepatitis C Antibody Crossmatch Allied health notes reviewed: RT
[2021-06-03] MEDS: POLYETHYLENE GLYCOL 3350 17 GM POWDER PO SCH (21:56)
[2021-06-04] MEDS: hydrALAZINE 25 MG TAB PO SCH ×3 (06:20→21:38)
[2021-06-04] MEDS: SENNOSIDES/DOCUSATE SODIUM 8.6/50 MG TAB FEEDTUBE SCH ×2 (10:46→21:40)
[2021-06-04] MEDS: LANSOPRAZOLE 30 MG SOLUTAB FEEDTUBE SCH ×2 (10:46→21:39)
[2021-06-04] MEDS: HEPARIN 5,000 UNIT/1 ML VIAL SUB-Q SCH ×2 (10:46→21:38)
[2021-06-04] MEDS: METOPROLOL TARTRATE 25 MG TAB FEEDTUBE SCH ×3 (10:48→20:47)
--- NOTE | 2021-06-04 11:48 | Progress Note ---
<JANUSZ PETERSEN - Last Filed: 06/04/21 16:31> Assessment and Plan Assessment and plan: This is a homeless 56-year-old male with past medical history of nicotine and cocaine abuse, atrial fibrillation, hypertension and chronic medication noncompliance admitted for acute hypoxic respiratory failure 2/2 COVID pneumonia s/p X3 intubation. Remains in the ICU on ventilatory support. Hospital Course to Date: 05/04/2021. Cardiology was considering patient for [employer]. However, patient with elevated creatinine therefore will hold off on cath evaluation. Nephrology consultation for acute kidney injury. Etiology likely secondary to vasomotor nephropathy/dehydration. We will start IV fluid hydration. Check renal ultrasound to rule out obstructive uropathy. We will resume home medications for the accelerated hypertension 05/05/2021. Echocardiogram reveals EF 35-40% with moderate concentric left ventricular hypertrophy. Moderate global hypokinesis of left ventricle. Mild mitral regurgitation. Mild pulmonary hypertension. Troponins are believed to be elevated in the setting of acute kidney injury. No beta-blockers due to cocaine use continue heparin and nitro drip. Continue CIWA protocol. Await urine studies 05/06/2021. Patient decompensated yesterday with worsening respiratory failure and difficulty to protect airway. Patient was breathing sonorously, and hypoxic. Patient was intubated and currently is on mechanical ventilation. Patient with AC mode ventilation rate of 20, tidal volume 450, FiO2 40% and PEEP of 6. COVID PCR testing on 05/05/2021 was found to be positive. Echocardiogram completed on this admission shows worsening EF from August 2020. Echocardiogram now reveals moderate concentric left ventricular hypertrophy with moderate global hypokinesis and EF of 35-40%. Mild pulmonary hypertension. 05/08: Continue current management, renal stable, LFTs stable and if improved will start on statin therapy. 05/09: Patient is febrile, will panculture, PSV today. CRP pending. Mucoid discharge noted from meatus which was sent for culture. Hypernatremia persists, free water flushes increased 05/10: PSV trial per CCM, T-max 102.3, given mildly elevated procalcitonin started on ceftriaxone 2 g every 24 for 2 days per ID. Overnight patient had atrial fibrillation which was treated with Cardizem drip and converted to sinus rhythm. Metoprolol p.o. increased to 3 times daily. 05/11: Patient still running fevers and if still febrile tomorrow will escalate to cefepime per ID as he is currently on ceftriaxone, CCM attempted PSV but patient became agitated and was switched back to pressure control. Lower extremity ultrasound shows acute DVT and started on heparin drip. Started on scheduled Librium. Patient remains with hypernatremia and elevated creatinine and on IV fluids. Free water flushes adjusted. Started on vancomycin today 05/12: Patient placed on pressure support trial without fentanyl, hypernatremia improving, hyperkalemia noted. Slight improvement to renal function. 05/13: Patient was extubated today, ID change antibiotics to Zosyn for Enterococcus, was started tapering Librium in the morning, renal function slightly improved. Possible transfer to floor tomorrow. ST evaluation for swallow ordered. 05/14: Patient became hypoglycemic overnight and started on dextrose IV fluids. Accu-Chek fingersticks have been low but on a.m. BMP patient blood glucose is 100. Other BMP pending. Feeding tube replaced due to need for enteral access and patient being severely confused. Renal functions remains the same. Upon confirmation will restart tube feedings, p.o. medications and free water flushes. 05/15: Remains confused/somnolent on my encounter. Librium taper in 24hrs per PCCM recs. Remains hypertensive. Added amlodipine 10 mg NG and labetalol prn. ST eval today but doubt he will participate. Potassium replaced. Renal function improving overall, however, hypernatremic. Inc TF FWF to 250 cc q4hr. 05/16: Respiratory distress this AM, hypoxic in 60's not protecting airway. Required intubation, patient now ICU patient. Reduce fluid to FWF only, IVF d/c off jun. CXR ordered demonstrates pulmonary edema. Lasix 40 mg IV bid ordered. Troponin elevated, continue heparin gtt. Would recommend decreasing sedating medications at this point, agree with librium taper. 05/17: Patient remains on the vent and sedated, RASS -3. Plan for possible sedation vacation today. D/w CCM plan to wean for possible extubation on the v ent. 2: Tolerated 4hrs of sedation vacation yesterday, on low dose fentanyl this am. Patient is tolerating PST this am. Plan to wean off sedation and wean vent setting for possible extubation today. 2/3: s/p extubation now stable on 3L NC. Lethargic this am, will decreased Seroquel. Speech consult for swallow eval, continue enteral nutrition via NGT for now. Hypertensive throughout the night, Norvac added. Remains on heparin gtt for DVT, might need to transition to PO AC, will d/w CCM. Patient is stable for transfer to [facility] 05/20: Continue sepsis work up considering fever, aspiration precautions. Discussed with nursing staff will hold am seroquel. Continue tube feed. RENAL Function remains relatively stable, possible has peaked. 05/21: Patient seen and examined, resting but still with mild increase wob, CXR concerning with right lobar infiltrate, continue antibiotics, will give kayxalate in addition due to hyperkalemia, Will discuss with ID due to rising lobito ekocytosis possible worsening sepsis. 05/22: Patient remains on BIPAP, still sedated appearing, cxr concerning for possible aspiration, unfortunately still worsening renal status. Will continue abx and continue collaboration with pulmonary team to ensure no over sedation. Continue abx, will add kayaxlate 05/23: Patient noted to have severe anemia today, will initiate GI work up and also Hemolysis work up. Will discuss with Vascular about possible IVC filter placement. Continue BIPAP, goal is to see if we can avert re-intubation. Transfuse 1 UNIT PRBC, Will discuss with Pulmonary about holding Eliquis for now. Renal failure still ongoing. 05/24: Patient had a positive occult and was anemic again today and received PRBC. GI was consulted. Repeat Dopplers are negative for DVT vascular recommends a CT/SQ heparin if tolerated and nephrology would like to increase IV fluids per FeNa results. Decrease metoprolol, seroquel and librium. surgery consult for trach/peg 05/25: RT decreased FiO2. GI signed off, Cr slightly improved, Anemia improved. Tmax 101.4 noted, abx per ID. 05/26: Patient had a temperature spike and was recultured, no plan today changes made as patient continues to breathe over the vent, one time dose of fent patch, repeat dopllar in 1 week per [facility], miralax q hs 05/27: Added vancomycin per ID, started CPAP trials, prophylactic heparin, IV fluids stopped per ID. 05/28: No acute events reported overnight, T-max 100.6, slight improvement to BUN/creatinine. awaiting trach & PEG 05/29: Creatinine continues trending down, remains on minimal vent settings. CPAP as tolerated. 05/30: Patient remains lethargic, opened eyes and tracking this am. Librium will end tonight and decrease seroquel for now. PRN analgesics added for pain management. Patient remains with intermittent fevers, BLE doppler neg for DVT, recent cultures with NGTD, continue current IV abx per ID. LUE swelling noted, LUE doppler pending. Trach and PEG is now on hold, case management is trying to get in contact with a living relative for consent. 05/31: Low dose sedation initiated yesterday due to increase work of breathing and high RR. Patient is stable this am, appears comfortable, tolerating PST. LUE doppler noted with superficial thrombosis in the left cephalic and basilic veins, continue AC- heparin SubQ. 06/01: Off sedation this am for sedation vacation. Still drowsy, however, more alert and following simple commands. Seroquel held overnight and this am, will D/C for now. Tolerating PST this am 06/02: Back on low dose fentanyl, remains awake and tracking. Continue to tolerate PST this am. Still no living relatives have been located for patient at this time. This is day-10 since reintubation, d/w CCM possible two physicians consent for Trach and PEG is warranted at this time since we can't get in contact with a living relative and the dow of stated process is still pending. 06/03: HUSSEIN overnight. Patient's brother, Mingo Harrison, was located and visited patient today. Patient's condition and status was thoroughly discuss to patient's family by the attending at the bedside. Patient's brother verbalized understanding of the info given, however, he would like 24hrs or so to discuss everything with his other brother before making a decision. Patient remains a full code and we will hold off on re-consulting General Surgery until a final decision is made. Continue daily PST as tolerated. Patient next of kin- Mingo Harrison [phone]. 06/04: HUSSEIN overnight. Patient's family denied trach and PEG and opted for comfort care/Hospice. Case management to arrange possible placement to inpatient hospice. Continue daily PST as tolerated Assessment and Plan #Neuro: Metabolic encephalopathy #Polysubstance Abuse -UDS positive for amphetamines -On CIWA protocol -Librium end tonight -Seroquel on hold -Monitor QTc -Avoid delirium -PRN analgesia added for pain management -We will need cessation counseling when appropriate #Cardio:Heart failure reduced EF #Cardiomyopathy #Paroxysmal atrial fibrillation #S/p hypertensive emergency, h/o HTN -Continue beta-sylvia, aspirin, statin, hydral, titrate as needed -Cardiology consulted, appreciate recommendations -Echo 05/04/2021-EF 35 to 40%. Moderate concentric LVH. Moderate global hypokinesis of left ventricle. Mild mitral regurgitation. Mild pulmonary hypertension. -Echocardiogram reviewed (08/27/2020): LVEF is 50 to 55%. Mild to moderate concentric LVF. Severe diastolic dysfunction is present (restrictive filling). Right ventricle is mildly hypokinetic. RVSP is 48 mmHg. No valvular abnormalities. -S/p Cardizem drip for atrial fibrillation -Blood pressure monitoring per protocol #Respiratory:Acute Hypoxic respiratory failure -S/p X3 intubation -CCM consulted, appreciate recommendations -Intubated on 05/05 in the ED and extubated 05/13, Re-intubated on 05/16 and Extubated on 05/18 -Reintubated 05/23 -Vent setting:PRVC-25%,6,16,450 -CCM consulted, appreciate recommendations -VAP bundle addressed -Aspiration precaution HOB above 30 -Daily SBT and SAT trials as tolerated -PRN ABG and CXR per CCM -Continue SPO2 monitoring for SPO2 goal above 92% -Need to be trach and PEG- Currently on hold, trying to get in contact with a living relative for consent #Acute kidney injury likely secondary to vasomotor nephropathy -Nephrology consulted, appreciate recommendations -Renal ultrasound completed: 1.7 hyper echoic mass within the left upper pole, continue to monitor and follow-up with CT once stable -Strict intake and output -Avoid nephrotoxic medications; Renally dose medications -Monitor and replace electrolytes as needed -Trend BMP #Transaminitis, h/o hepatitis C -LFT with some mild improvement -Continue to trend LFTs #ID:Severe COVID-19 pneumonia, Enterobacter aerogenes PNA, s/p Enterococcus faecalis UTI -Infectious disease consulted, appreciate recommendations -COVID-19 PCR positive -s/p droplet/precautions for 21 days -Not a candidate for remdesivir given acute kidney injury -s/p Dexamethasone for 10 days -Anticoagulation per hospital protocol -Trend COVID-19 from 2 markers (ferritin, D-dimer, CRP, LDH) -05/09 urine culture with Enterococcus faecalis -05/16 tracheal aspirate with Enterobacter aerogenes -per ID Due to persistent fevers switched cefepime to IV ertapenem renally adjusted 05/24 -GC negative -f/u culture data -re-cultured 05/26 #Heme: Anemia, Acute DVT (resolved) -Bilateral lower extremity Doppler ultrasound shows acute DVT -heparin gtt converted to DOAC but now d/c -vascular surgery consulted for possible IVC filter placement, appreciate recommendations -repeat doppler shows no DVT -05/30 LUE doppler noted with superficial thrombosis in the left cephalic and basilic veins -subq heparin for prophylaxis -Pulmonary perfusion study showed low probability of pulmonary embolism -S/p 3 unit PRBC -Trend CBC -Transfuse for hemoglobin less than 7 The high probability of a clinically significant, sudden or life threatening deterioration of the [cardio/resp] system(s) required my full and direct attention, intervention and personal management. The aggregate critical care time was [60] minutes. This time is in addition to time spent performing reported procedures but includes the following: [x] Data Review and interpretation [x] Patient assessment and monitoring of vital signs [x] Documentation [x] Medication orders and management Disposition Plan: ICU Total Time Spent with Patient (Minutes): 60 History Interval history: Patient seen and examined at the bedside. Remains on the vent and low dose fentanyl. Open eyes spontaneously and tracking. HUSSEIN overnight Hospitalist Physical - Constitutional Vitals: Temp Pulse Resp BP Pulse Ox 1004 F H 89 41 H 147/99 98 06/04/21 08:00 06/04/21 11:33 06/04/21 11:33 06/04/21 11:33 06/04/21 11:33 General appearance: Present: no acute distress, other (Intubated) - EENT Eyes: Present: PERRL ENT: hearing intact - Neck Neck: Present: normal ROM - Respiratory Respiratory effort: normal Respiratory: bilateral: rhonchi - Cardiovascular Rhythm: regular Heart Sounds: Present: S1 & S2 - Extremities Extremities: no ischemia, pulses intact, pulses symmetrical Peripheral Pulses: within normal limits - Abdominal General gastrointestinal: soft, non-distended, normal bowel sounds - Integumentary Integumentary: Present: warm, dry - Psychiatric Psychiatric: other (Intubated) - Neurologic Neurologic: other (Intubated) - Allied Health Allied health notes reviewed: nursing, case management HEART Score - HEART Score EKG: Non-specific Age: 45-65 Risk factors: 1-2 risk factors Troponin: Troponin T 0.400 ng/mL (0.00-0.029) H* D 05/16/21 18:40 Troponin: 1-3x normal limit - Critical Actions Critical Actions: 4-6 pts:12-16.6% risk of adverse cardiac event. Should be admitted Results - Labs CBC & Chem 7: 06/03/21 04:15 06/03/21 04:15 Labs: Laboratory Last Values WBC 11.0 K/mm3 (4.5-11.0) 06/03/21 04:15 RBC 3.40 M/mm3 (3.65-5.03) L 06/03/21 04:15 Hgb 10.0 gm/dl (11.8-15.2) L 06/03/21 04:15 Hct 31.3 % (35.5-45.6) L 06/03/21 04:15 MCV 92 fl (84-94) 06/03/21 04:15 MCH 30 pg (28-32) 06/03/21 04:15 MCHC 32 % (32-34) 06/03/21 04:15 RDW 16.0 % (13.2-15.2) H 06/03/21 04:15 Plt Count 463 K/mm3 (140-440) H 06/03/21 04:15 Lymph % (Auto) Service Advocate Contact 05/16/21 10:21 [place] % (Auto) Service Advocate Contact 05/16/21 10:21 Eos % (Auto) Service Advocate Contact 05/16/21 10:21 Baso % (Auto) Service Advocate Contact 05/16/21 10:21 Lymph # (Auto) Service Advocate Contact 05/16/21 10:21 [place] # (Auto) Service Advocate Contact 05/16/21 10:21 Eos # (Auto) Service Advocate Contact 05/16/21 10:21 Baso # (Auto) Service Advocate Contact 05/16/21 10:21 Add Manual Diff Complete 05/28/21 04:04 Total Counted 100 05/28/21 04:04 Seg Neutrophils % Service Advocate Contact 05/16/21 10:21 Seg Neuts % (Manual) 93.0 % (40.0-70.0) H 05/28/21 04:04 Band Neutrophils % 1.0 % 05/28/21 04:04 Lymphocytes % (Manual) 2.0 % (13.4-35.0) L 05/28/21 04:04 Reactive Lymphs % (Man) 0 % 05/28/21 04:04 Monocytes % (Manual) 4.0 % (0.0-7.3) 05/28/21 04:04 Eosinophils % (Manual) 0 % (0.0-4.3) 05/28/21 04:04 Basophils % (Manual) 0 % (0.0-1.8) 05/28/21 04:04 Metamyelocytes % 0 % 05/28/21 04:04 Myelocytes % 0 % 05/28/21 04:04 Promyelocytes % 0 % 05/28/21 04:04 Blast Cells % 0 % 05/28/21 04:04 Nucleated RBC % Not Reportable 05/28/21 04:04 Seg Neutrophils # Service Advocate Contact 05/16/21 10:21 Seg Neutrophils # Man 13.1 K/mm3 (1.8-7.7) H 05/28/21 04:04 Band Neutrophils # 0.1 K/mm3 05/28/21 04:04 Lymphocytes # (Manual) 0.3 K/mm3 (1.2-5.4) L 05/28/21 04:04 Abs React Lymphs (Man) 0.0 K/mm3 05/28/21 04:04 Monocytes # (Manual) 0.6 K/mm3 (0.0-0.8) 05/28/21 04:04 Eosinophils # (Manual) 0.0 K/mm3 (0.0-0.4) 05/28/21 04:04 Basophils # (Manual) 0.0 K/mm3 (0.0-0.1) 05/28/21 04:04 Metamyelocytes # 0.0 K/mm3 05/28/21 04:04 Myelocytes # 0.0 K/mm3 05/28/21 04:04 Promyelocytes # 0.0 K/mm3 05/28/21 04:04 Blast Cells # 0.0 K/mm3 05/28/21 04:04 WBC Morphology Not Reportable 05/28/21 04:04 Hypersegmented Neuts Not Reportable 05/28/21 04:04 Hyposegmented Neuts Not Reportable 05/28/21 04:04 Hypogranular Neuts Not Reportable 05/28/21 04:04 Smudge Cells Not Reportable 05/28/21 04:04 Toxic Granulation Not Reportable 05/28/21 04:04 Toxic Vacuolation Not Reportable 05/28/21 04:04 Dohle Bodies Not Reportable 05/28/21 04:04 Pelger-Huet Anomaly Not Reportable 05/28/21 04:04 Jesse Rods Not Reportable 05/28/21 04:04 Platelet Estimate Consistent w auto 05/28/21 04:04 Clumped Platelets Not Reportable 05/28/21 04:04 Plt Clumps, EDTA Not Reportable 05/28/21 04:04 Large Platelets Not Reportable 05/28/21 04:04 Giant Platelets Not Reportable 05/28/21 04:04 Platelet Satelliting Not Reportable 05/28/21 04:04 Plt Morphology Comment Not Reportable 05/28/21 04:04 RBC Morphology Not Reportable 05/28/21 04:04 Dimorphic RBCs Not Reportable 05/28/21 04:04 Polychromasia Not Reportable 05/28/21 04:04 Hypochromasia Not Reportable 05/28/21 04:04 Poikilocytosis Not Reportable 05/28/21 04:04 Anisocytosis 1+ 05/28/21 04:04 Microcytosis Not Reportable 05/28/21 04:04 Macrocytosis Not Reportable 05/28/21 04:04 Spherocytes Not Reportable 05/28/21 04:04 Pappenheimer Bodies Not Reportable 05/28/21 04:04 Sickle Cells Not Reportable 05/28/21 04:04 Target Cells Not Reportable 05/28/21 04:04 Tear Drop Cells Not Reportable 05/28/21 04:04 Ovalocytes Not Reportable 05/28/21 04:04 Helmet Cells Not Reportable 05/28/21 04:04 Murphy-Laurel Bodies Not Reportable 05/28/21 04:04 Lolita Rings Not Reportable 05/28/21 04:04 [place] Cells Not Reportable 05/28/21 04:04 Bite Cells Not Reportable 05/28/21 04:04 Crenated Cell Not Reportable 05/28/21 04:04 Elliptocytes Not Reportable 05/28/21 04:04 Acanthocytes (Spur) Not Reportable 05/28/21 04:04 Rouleaux Not Reportable 05/28/21 04:04 Hemoglobin C Crystals Not Reportable 05/28/21 04:04 Schistocytes Not Reportable 05/28/21 04:04 Malaria parasites Not Reportable 05/28/21 04:04 Tomi Bodies Not Reportable 05/28/21 04:04 Haptoglobin 254 mg/dL (43-212) H 05/23/21 18:54 Hem Pathologist Commnt No 05/28/21 04:04 PT 14.9 Sec. (12.2-14.9) 05/25/21 04:25 INR 1.05 (0.87-1.13) 05/25/21 04:25 APTT 72.5 Sec. (24.2-36.6) H* 05/19/21 19:36 D-Dimer 2730.61 ng/mlDDU (0-234) H 05/12/21 07:19 Heparin Anti-Xa Level 0.47 U.I./ml (0.3-0.7) 05/19/21 05:23 ABG pH 7.443 pH Units (7.350-7.450) 05/27/21 09:20 ABG pCO2 38.8 mm Hg 05/27/21 09:20 ABG pO2 115.2 mm Hg (80.0-90.0) H 05/27/21 09:20 ABG HCO3 25.9 mmol/L (20.0-26.0) 05/27/21 09:20 ABG O2 Saturation 98.3 % (95.0-99.0) 05/27/21 09:20 ABG O2 Content 12.5 (0.0-44) 05/27/21 09:20 ABG Base Excess 1.7 mmol/L (-2.0-3.0) 05/27/21 09:20 ABG Hemoglobin 9.2 gm/dl (14.0-18.0) L 05/27/21 09:20 ABG Carboxyhemoglobin 2.2 % (0.0-5.0) 05/27/21 09:20 ABG Methemoglobin 0.7 % (0.0-1.5) 05/27/21 09:20 Oxyhemoglobin 95.4 % (95.0-99.0) 05/27/21 09:20 FiO2 30 % 05/27/21 09:20 Sodium 140 mmol/L (137-145) 06/03/21 04:15 Potassium 4.0 mmol/L (3.6-5.0) 06/03/21 04:15 Chloride 102.5 mmol/L (98-107) 06/03/21 04:15 Carbon Dioxide 28 mmol/L (22-30) 06/03/21 04:15 Anion Gap 14 mmol/L 06/03/21 04:15 BUN 44 mg/dL (9-20) H 06/03/21 04:15 Creatinine 1.3 mg/dL (0.8-1.3) 06/03/21 04:15 Estimated GFR 57 ml/min 06/03/21 04:15 BUN/Creatinine Ratio 34 % 06/03/21 04:15 Glucose 115 mg/dL (75-100) H 06/03/21 04:15 POC Glucose 121 mg/dL (70-105) H 06/04/21 05:31 Lactic Acid 0.90 mmol/L (0.7-2.0) 05/20/21 09:17 Calcium 8.6 mg/dL (8.4-10.2) 06/03/21 04:15 Phosphorus 3.70 mg/dL (2.5-4.5) 06/01/21 04:56 Magnesium 2.10 mg/dL (1.7-2.3) 06/01/21 04:56 Iron 10 ug/dL (49-181) L 05/23/21 Unknown TIBC 151 mcg/dL (250-450) L 05/23/21 Unknown Ferritin 640.2 ng/mL (30.0-300.0) H 05/12/21 07:19 Total Bilirubin 0.50 mg/dL (0.1-1.2) 05/24/21 04:11 AST 152 units/L (5-40) H 05/24/21 04:11 ALT 125 units/L (7-56) H 05/24/21 04:11 Alkaline Phosphatase 72 units/L (35-129) 05/24/21 04:11 Lactate Dehydrogenase 311 units/L (91-180) H 05/23/21 Unknown Total Creatine Kinase 406 units/L (55-170) H 05/04/21 08:42 Troponin T 0.400 ng/mL (0.00-0.029) H* D 05/16/21 18:40 C-Reactive Protein 13.20 mg/dL (0.00-1.30) H 05/28/21 04:04 Total Protein 6.6 g/dL (6.3-8.2) 05/24/21 04:11 Albumin 2.5 g/dL (3.9-5) L 05/24/21 04:11 Albumin/Globulin Ratio 0.6 % 05/24/21 04:11 Triglycerides 144 mg/dL (2-149) 05/10/21 04:57 Cholesterol 140 mg/dL (50-199) 05/04/21 07:25 LDL Cholesterol Direct 89 mg/dL (50-130) 05/04/21 07:25 HDL Cholesterol 48 mg/dL (40-59) 05/04/21 07:25 Cholesterol/HDL Ratio 2.91 % 05/04/21 07:25 Procalcitonin 0.63 ng/mL (<0.15) 05/09/21 15:53 Urine Color Yellow (Yellow) 05/26/21 09:50 Urine Turbidity Turbid (Clear) 05/26/21 09:50 Urine pH 5.0 (5.0-7.0) 05/26/21 09:50 Ur Specific [place] 1.014 (1.003-1.030) 05/26/21 09:50 Urine Protein 30 mg/dl mg/dL (Negative) 05/26/21 09:50 Urine Glucose (UA) Neg mg/dL (Negative) 05/26/21 09:50 Urine Ketones Neg mg/dL (Negative) 05/26/21 09:50 Urine Blood Sm (Negative) 05/26/21 09:50 Urine Nitrite Neg (Negative) 05/26/21 09:50 Urine Bilirubin Neg (Negative) 05/26/21 09:50 Urine Urobilinogen < 2.0 mg/dL (<2.0) 05/26/21 09:50 Ur Leukocyte Esterase Tr (Negative) 05/26/21 09:50 Urine WBC (Auto) 38.0 /HPF (0.0-6.0) H 05/26/21 09:50 Urine RBC (Auto) 5.0 /HPF (0.0-6.0) 05/26/21 09:50 U Epithel Cells (Auto) 1.0 /HPF (0-13.0) 05/23/21 16:30 Urine Bacteria (Auto) 1+ /HPF (Negative) 05/23/21 16:30 Uric Acid Crystals Few 05/09/21 00:40 Triple Phos Crystals 2+ 05/09/21 13:22 Amorphous Crystals 3+ 05/26/21 09:50 Granular Casts 20 /LPF 05/26/21 09:50 Urine Mucus Few /HPF 05/23/21 16:30 Urine Creatinine 100.1 mg/dL (0.1-20.0) H 05/23/21 16:30 Protein/Creatinin Ratio 0.42 05/10/21 11:03 Urine Sodium 25 mmol/L 05/23/21 16:30 Fraction Sodium Excret 0.3 05/23/21 16:30 Urine Total Protein 42 mg/dL (5-11.8) H 05/10/21 11:03 Vancomycin Trough 15.4 ug/mL (5.0-20.0) 05/29/21 14:15 Urine Opiates Screen Negative 05/04/21 Unknown Urine Methadone Screen Negative 05/04/21 Unknown Ur Barbiturates Screen Negative 05/04/21 Unknown Ur Phencyclidine Scrn Negative 05/04/21 Unknown Ur Amphetamines Screen Positive 05/04/21 Unknown U Benzodiazepines Scrn Negative 05/04/21 Unknown Urine Cocaine Screen Negative 05/04/21 Unknown U Marijuana (THC) Screen Negative 05/04/21 Unknown Drugs of Abuse Note Disclamer 05/04/21 Unknown Immunofix Electrophor see below 05/05/21 03:40 AUDRA Screen Negative (Negative) 05/05/21 03:40 Proteinase 3 (PR3) Ab <1.0 AI (<1.0) 05/05/21 03:40 Myeloperoxidase Ab <1.0 AI (<1.0) 05/05/21 03:40 Complement C3 72 mg/dL (82-185) L 05/05/21 03:40 Complement C4 17 mg/dL (15-53) 05/05/21 03:40 Coronavirus (PCR) Positive (Negative) A 05/05/21 08:30 Hepatitis A IgM Ab Non-reactive (NonReactive) 05/05/21 03:40 Hep Bs Antigen Non-reactive (Negative) 05/05/21 03:40 Hep B Core IgM Ab Non-reactive (NonReactive) 05/05/21 03:40 Hepatitis C Antibody Reactive (NonReactive) A 05/05/21 03:40 Blood Type O POSITIVE 05/23/21 07:12 Antibody Screen Negative 05/23/21 07:12 Crossmatch See Detail 05/23/21 07:12 Merino/IV: Voiding Method Indwelling Catheter Active Medications - Current Medications Current Medications: Generic Name Dose Route Start Last Admin Trade Name Freq PRN Reason Stop Dose Admin Acetaminophen 650 mg 05/04/21 12:34 06/03/21 02:06 Acetaminophen 325 Mg Tab PO 650 mg Q4H PRN Administration Pain MILD(1-3)/Fever >100.5/MARIA Acetaminophen 650 mg 05/07/21 16:00 05/11/21 16:25 Acetaminophen 650 Mg Rect Supp DC 650 mg Q4H PRN Administration Pain, Mild (1-3) Atorvastatin Calcium 40 mg 05/09/21 22:00 06/03/21 21:56 Atorvastatin 40 Mg Tab FEEDTUBE 40 mg QHS RISHI Administration Dextrose 0 ml 05/09/21 10:49 05/14/21 06:55 Dextrose 10% *Hypoglycemia IV 250 ml PRN PRN Administration Hypoglycemia Fentanyl 50 mcg 05/23/21 15:00 Fentanyl 100 Mcg/2 Ml Inj IV Q10MIN PRN ANALGESIA Haloperidol Lactate 5 mg 05/09/21 18:32 05/18/21 19:52 Haloperidol Lactate 5 Mg/1 Ml Inj IV 5 mg Q6H PRN Administration Agitation Heparin Sodium (Porcine) 5,000 unit 05/27/21 22:00 06/04/21 10:46 Heparin 5,000 Unit/1 Ml Vial SUB-Q 5,000 unit Q12HR RISHI Administration Hydralazine HCl 50 mg 05/04/21 14:00 06/04/21 06:20 Hydralazine 25 Mg Tab PO 50 mg Q8HR RISHI Administration Hydrophilic Ointment 1 applic 05/05/21 15:21 Lip Therapy Vaseline TP Q2HR PRN Dry Lips Fentanyl Citrate 2,000 mcg in 100 mls @ 4.082 mls/hr 05/23/21 15:00 06/02/21 18:54 Fentanyl Drip Premix IV 0.5 mcg/kg/hr TITR RISHI 2.041 mls/hr Administration Protocol 1 MCG/KG/HR Insulin Human Lispro 0 unit 05/10/21 09:40 05/12/21 16:49 Insulin Lispro 100 Unit/Ml SUB-Q 2 unit Q6HR PRN Administration Hyperglycemia Protocol Labetalol HCl 10 mg 05/15/21 10:24 05/25/21 08:15 Labetalol 20 Mg/4 Ml Inj IV 10 mg Q4H PRN Administration sbp> 160. Lansoprazole 30 mg 05/26/21 10:00 06/04/21 10:46 Lansoprazole 30 Mg Solutab FEEDTUBE 30 mg BID RISHI Administration Metoprolol Tartrate 50 mg 05/26/21 08:00 06/04/21 10:48 Metoprolol Tartrate 25 Mg Tab FEEDTUBE 50 mg TID RISHI Administration Multi-Ingred Cream/Lotion/Oil/Oint 1 applic 05/05/21 15:21 Mineral Oil/Petrolatum, White Ophth Oint 3.5 Gm OU Q4HR PRN Dry Eye(s) Ondansetron HCl 4 mg 05/04/21 12:34 05/04/21 21:51 Ondansetron 4 Mg/2 Ml Inj IV 4 mg Q8H PRN Administration Nausea And Vomiting Oxycodone HCl 5 mg 05/30/21 11:00 05/30/21 14:55 Oxycodone 5 Mg Tab PO 5 mg Q6H PRN Administration Pain, Moderate (4-6) Polyethylene Glycol 17 gm 05/26/21 22:00 06/03/21 21:56 Polyethylene Glycol 3350 17 Gm Powder PO 17 gm QHS RISHI Administration Senna/Docusate Sodium 1 tab 05/05/21 22:00 06/04/21 10:46 Sennosides/Docusate Sodium 8.6/50 Mg Tab FEEDTUBE 1 tab BID RISHI Administration Sodium Chloride 10 ml 05/04/21 22:00 06/03/21 21:57 Sodium Chloride 0.9% 10 Ml Flush Syringe IV 10 ml BID RISHI Administration Sodium Chloride 10 ml 05/04/21 12:34 05/06/21 13:59 Sodium Chloride 0.9% 10 Ml Flush Syringe IV 10 ml PRN PRN Administration LINE FLUSH Sodium Chloride 10 ml 05/09/21 09:46 Sodium Chloride 0.9% 50 Ml Ivpb IV PRN PRN FLUSH Nutrition/Malnutrition Assess - Dietary Evaluation Nutrition/Malnutrition Findings: Nutrition Notes Start: 05/05/21 16:15 Freq: Status: Active Protocol: Document 06/03/21 14:39 ROSAURA (Rec: 06/03/21 14:42 ROSAURA [id number]) Nutrition Notes Initial or Follow up Reassessment Current Diagnosis Acute Kidney Injury, Hypertension,Heart Failure, Respiratory Failure Other Pertinent Diagnosis Severe COVID-19 pneu, metabolic encephalopathy, polysubstance dependence Current Diet TF - Nepro at 45ml/hr Labs/Tests BUN 44 Pertinent Medications reviewed Height 5 ft 7 in Weight 81.647 kg [place] Body Weight (kg) 67.27 BMI 28.1 Weight Status Overweight Subjective/Other Information Pt remains on vent support. Still awaiting family consent for trach and PEG placement. Spoke with RN via phone (14:18 ); pt continues to tolerate TF at goal rate Percent of energy/protein needs met: 100% energy 89% pro Burn Absent Trauma Absent #1 Nutrition Diagnosis Inadequate oral intake Diagnosis Progress(for reassessment Continues documentation) Is patient on ventilator? Yes Is Patient Ambulatory and/or Out of Bed No REE-([facility]-confined to bed) [phone] [facility] Additional Notes Pro needs 1.2-2g/k-163g/ day Fluid needs 1ml/kcal Nutrition Intervention Nutrition Support: Continue Nepro at 45ml/hr with 200ml water flush q4h. Kcal 1,944 Protein (gm) 87 Carbohydrates (gm) 174 Fat (gm) 104 Fluid (mL) 785 Fiber (gm) 14 Goal #1 TF tolerance Goal #2 TF to meet at least 75% energy and pro needs Follow-Up By: 06/10/21 Additional Comments F/U: stable TF, vent status, trach/PEG placement, wt <VIKRAM SAENZ - Last Filed: 06/08/21 16:13> Assessment and Plan Assessment and plan: I saw and evaluated the patient. I agree with the findings and the plan of care as documented in the Nurse Practitioner's~note, with the following corrections and additions. Hospitalist Physical - Constitutional Vitals: Temp Pulse Resp BP Pulse Ox 101 F H 952 H 18 131/95 96 06/07/21 08:29 06/07/21 13:52 06/07/21 12:00 06/07/21 13:52 06/07/21 12:00 HEART Score - HEART Score Troponin: Troponin T 0.400 ng/mL (0.00-0.029) H* D 05/16/21 18:40 Results - Labs CBC & Chem 7: 06/07/21 08:04 06/07/21 08:04 Labs: Laboratory Last Values WBC 13.3 K/mm3 (4.5-11.0) H 06/07/21 08:04 RBC 3.64 M/mm3 (3.65-5.03) L 06/07/21 08:04 Hgb 10.6 gm/dl (11.8-15.2) L 06/07/21 08:04 Hct 33.3 % (35.5-45.6) L 06/07/21 08:04 MCV 92 fl (84-94) 06/07/21 08:04 MCH 29 pg (28-32) 06/07/21 08:04 MCHC 32 % (32-34) 06/07/21 08:04 RDW 16.8 % (13.2-15.2) H 06/07/21 08:04 Plt Count 470 K/mm3 (140-440) H 06/07/21 08:04 Lymph % (Auto) Service Advocate Contact 05/16/21 10:21 [place] % (Auto) Service Advocate Contact 05/16/21 10:21 Eos % (Auto) Service Advocate Contact 05/16/21 10:21 Baso % (Auto) Service Advocate Contact 05/16/21 10:21 Lymph # (Auto) Service Advocate Contact 05/16/21 10:21 [place] # (Auto) Service Advocate Contact 05/16/21 10:21 Eos # (Auto) Service Advocate Contact 05/16/21 10:21 Baso # (Auto) Service Advocate Contact 05/16/21 10:21 Add Manual Diff Complete 05/28/21 04:04 Total Counted 100 05/28/21 04:04 Seg Neutrophils % Service Advocate Contact 05/16/21 10:21 Seg Neuts % (Manual) 93.0 % (40.0-70.0) H 05/28/21 04:04 Band Neutrophils % 1.0 % 05/28/21 04:04 Lymphocytes % (Manual) 2.0 % (13.4-35.0) L 05/28/21 04:04 Reactive Lymphs % (Man) 0 % 05/28/21 04:04 Monocytes % (Manual) 4.0 % (0.0-7.3) 05/28/21 04:04 Eosinophils % (Manual) 0 % (0.0-4.3) 05/28/21 04:04 Basophils % (Manual) 0 % (0.0-1.8) 05/28/21 04:04 Metamyelocytes % 0 % 05/28/21 04:04 Myelocytes % 0 % 05/28/21 04:04 Promyelocytes % 0 % 05/28/21 04:04 Blast Cells % 0 % 05/28/21 04:04 Nucleated RBC % Not Reportable 05/28/21 04:04 Seg Neutrophils # Service Advocate Contact 05/16/21 10:21 Seg Neutrophils # Man 13.1 K/mm3 (1.8-7.7) H 05/28/21 04:04 Band Neutrophils # 0.1 K/mm3 05/28/21 04:04 Lymphocytes # (Manual) 0.3 K/mm3 (1.2-5.4) L 05/28/21 04:04 Abs React Lymphs (Man) 0.0 K/mm3 05/28/21 04:04 Monocytes # (Manual) 0.6 K/mm3 (0.0-0.8) 05/28/21 04:04 Eosinophils # (Manual) 0.0 K/mm3 (0.0-0.4) 05/28/21 04:04 Basophils # (Manual) 0.0 K/mm3 (0.0-0.1) 05/28/21 04:04 Metamyelocytes # 0.0 K/mm3 05/28/21 04:04 Myelocytes # 0.0 K/mm3 05/28/21 04:04 Promyelocytes # 0.0 K/mm3 05/28/21 04:04 Blast Cells # 0.0 K/mm3 05/28/21 04:04 WBC Morphology Not Reportable 05/28/21 04:04 Hypersegmented Neuts Not Reportable 05/28/21 04:04 Hyposegmented Neuts Not Reportable 05/28/21 04:04 Hypogranular Neuts Not Reportable 05/28/21 04:04 Smudge Cells Not Reportable 05/28/21 04:04 Toxic Granulation Not Reportable 05/28/21 04:04 Toxic Vacuolation Not Reportable 05/28/21 04:04 Dohle Bodies Not Reportable 05/28/21 04:04 Pelger-Huet Anomaly Not Reportable 05/28/21 04:04 Jesse Rods Not Reportable 05/28/21 04:04 Platelet Estimate Consistent w auto 05/28/21 04:04 Clumped Platelets Not Reportable 05/28/21 04:04 Plt Clumps, EDTA Not Reportable 05/28/21 04:04 Large Platelets Not Reportable 05/28/21 04:04 Giant Platelets Not Reportable 05/28/21 04:04 Platelet Satelliting Not Reportable 05/28/21 04:04 Plt Morphology Comment Not Reportable 05/28/21 04:04 RBC Morphology Not Reportable 05/28/21 04:04 Dimorphic RBCs Not Reportable 05/28/21 04:04 Polychromasia Not Reportable 05/28/21 04:04 Hypochromasia Not Reportable 05/28/21 04:04 Poikilocytosis Not Reportable 05/28/21 04:04 Anisocytosis 1+ 05/28/21 04:04 Microcytosis Not Reportable 05/28/21 04:04 Macrocytosis Not Reportable 05/28/21 04:04 Spherocytes Not Reportable 05/28/21 04:04 Pappenheimer Bodies Not Reportable 05/28/21 04:04 Sickle Cells Not Reportable 05/28/21 04:04 Target Cells Not Reportable 05/28/21 04:04 Tear Drop Cells Not Reportable 05/28/21 04:04 Ovalocytes Not Reportable 05/28/21 04:04 Helmet Cells Not Reportable 05/28/21 04:04 Murphy-[place]urel Bodies Not Reportable 05/28/21 04:04 Lolita Rings Not Reportable 05/28/21 04:04 [place] Cells Not Reportable 05/28/21 04:04 Bite Cells Not Reportable 05/28/21 04:04 Crenated Cell Not Reportable 05/28/21 04:04 Elliptocytes Not Reportable 05/28/21 04:04 Acanthocytes (Spur) Not Reportable 05/28/21 04:04 Rouleaux Not Reportable 05/28/21 04:04 Hemoglobin C Crystals Not Reportable 05/28/21 04:04 Schistocytes Not Reportable 05/28/21 04:04 Malaria parasites Not Reportable 05/28/21 04:04 Tomi Bodies Not Reportable 05/28/21 04:04 Haptoglobin 254 mg/dL (43-212) H 05/23/21 18:54 Hem Pathologist Commnt No 05/28/21 04:04 PT 14.9 Sec. (12.2-14.9) 05/25/21 04:25 INR 1.05 (0.87-1.13) 05/25/21 04:25 APTT 72.5 Sec. (24.2-36.6) H* 05/19/21 19:36 D-Dimer 2730.61 ng/mlDDU (0-234) H 05/12/21 07:19 Heparin Anti-Xa Level 0.47 U.I./ml (0.3-0.7) 05/19/21 05:23 ABG pH 7.443 pH Units (7.350-7.450) 05/27/21 09:20 ABG pCO2 38.8 mm Hg 05/27/21 09:20 ABG pO2 115.2 mm Hg (80.0-90.0) H 05/27/21 09:20 ABG HCO3 25.9 mmol/L (20.0-26.0) 05/27/21 09:20 ABG O2 Saturation 98.3 % (95.0-99.0) 05/27/21 09:20 ABG O2 Content 12.5 (0.0-44) 05/27/21 09:20 ABG Base Excess 1.7 mmol/L (-2.0-3.0) 05/27/21 09:20 ABG Hemoglobin 9.2 gm/dl (14.0-18.0) L 05/27/21 09:20 ABG Carboxyhemoglobin 2.2 % (0.0-5.0) 05/27/21 09:20 ABG Methemoglobin 0.7 % (0.0-1.5) 05/27/21 09:20 Oxyhemoglobin 95.4 % (95.0-99.0) 05/27/21 09:20 FiO2 30 % 05/27/21 09:20 Sodium 143 mmol/L (137-145) 06/07/21 08:04 Potassium 4.0 mmol/L (3.6-5.0) 06/07/21 08:04 Chloride 103.4 mmol/L (98-107) 06/07/21 08:04 Carbon Dioxide 29 mmol/L (22-30) 06/07/21 08:04 Anion Gap 15 mmol/L 06/07/21 08:04 BUN 41 mg/dL (9-20) H 06/07/21 08:04 Creatinine 1.1 mg/dL (0.8-1.3) 06/07/21 08:04 Estimated GFR > 60 ml/min 06/07/21 08:04 BUN/Creatinine Ratio 37 % 06/07/21 08:04 Glucose 121 mg/dL (75-100) H 06/07/21 08:04 POC Glucose 95 mg/dL (70-105) 06/07/21 11:42 Lactic Acid 0.90 mmol/L (0.7-2.0) 05/20/21 09:17 Calcium 8.6 mg/dL (8.4-10.2) 06/07/21 08:04 Phosphorus 3.70 mg/dL (2.5-4.5) 06/01/21 04:56 Magnesium 2.10 mg/dL (1.7-2.3) 06/01/21 04:56 Iron 10 ug/dL (49-181) L 05/23/21 Unknown TIBC 151 mcg/dL (250-450) L 05/23/21 Unknown Ferritin 640.2 ng/mL (30.0-300.0) H 05/12/21 07:19 Total Bilirubin 0.50 mg/dL (0.1-1.2) 05/24/21 04:11 AST 152 units/L (5-40) H 05/24/21 04:11 ALT 125 units/L (7-56) H 05/24/21 04:11 Alkaline Phosphatase 72 units/L (35-129) 05/24/21 04:11 Lactate Dehydrogenase 311 units/L (91-180) H 05/23/21 Unknown Total Creatine Kinase 406 units/L (55-170) H 05/04/21 08:42 Troponin T 0.400 ng/mL (0.00-0.029) H* D 05/16/21 18:40 C-Reactive Protein 13.20 mg/dL (0.00-1.30) H 05/28/21 04:04 Total Protein 6.6 g/dL (6.3-8.2) 05/24/21 04:11 Albumin 2.5 g/dL (3.9-5) L 05/24/21 04:11 Albumin/Globulin Ratio 0.6 % 05/24/21 04:11 Triglycerides 144 mg/dL (2-149) 05/10/21 04:57 Cholesterol 140 mg/dL (50-199) 05/04/21 07:25 LDL Cholesterol Direct 89 mg/dL (50-130) 05/04/21 07:25 HDL Cholesterol 48 mg/dL (40-59) 05/04/21 07:25 Cholesterol/HDL Ratio 2.91 % 05/04/21 07:25 Procalcitonin 0.63 ng/mL (<0.15) 05/09/21 15:53 Urine Color Yellow (Yellow) 05/26/21 09:50 Urine Turbidity Turbid (Clear) 05/26/21 09:50 Urine pH 5.0 (5.0-7.0) 05/26/21 09:50 Ur Specific [place] 1.014 (1.003-1.030) 05/26/21 09:50 Urine Protein 30 mg/dl mg/dL (Negative) 05/26/21 09:50 Urine Glucose (UA) Neg mg/dL (Negative) 05/26/21 09:50 Urine Ketones Neg mg/dL (Negative) 05/26/21 09:50 Urine Blood Sm (Negative) 05/26/21 09:50 Urine Nitrite Neg (Negative) 05/26/21 09:50 Urine Bilirubin Neg (Negative) 05/26/21 09:50 Urine Urobilinogen < 2.0 mg/dL (<2.0) 05/26/21 09:50 Ur Leukocyte Esterase Tr (Negative) 05/26/21 09:50 Urine WBC (Auto) 38.0 /HPF (0.0-6.0) H 05/26/21 09:50 Urine RBC (Auto) 5.0 /HPF (0.0-6.0) 05/26/21 09:50 U Epithel Cells (Auto) 1.0 /HPF (0-13.0) 05/23/21 16:30 Urine Bacteria (Auto) 1+ /HPF (Negative) 05/23/21 16:30 Uric Acid Crystals Few 05/09/21 00:40 Triple Phos Crystals 2+ 05/09/21 13:22 Amorphous Crystals 3+ 05/26/21 09:50 Granular Casts 20 /LPF 05/26/21 09:50 Urine Mucus Few /HPF 05/23/21 16:30 Urine Creatinine 100.1 mg/dL (0.1-20.0) H 05/23/21 16:30 Protein/Creatinin Ratio 0.42 05/10/21 11:03 Urine Sodium 25 mmol/L 05/23/21 16:30 Fraction Sodium Excret 0.3 05/23/21 16:30 Urine Total Protein 42 mg/dL (5-11.8) H 05/10/21 11:03 Vancomycin Trough 15.4 ug/mL (5.0-20.0) 05/29/21 14:15 Urine Opiates Screen Negative 05/04/21 Unknown Urine Methadone Screen Negative 05/04/21 Unknown Ur Barbiturates Screen Negative 05/04/21 Unknown Ur Phencyclidine Scrn Negative 05/04/21 Unknown Ur Amphetamines Screen Positive 05/04/21 Unknown U Benzodiazepines Scrn Negative 05/04/21 Unknown Urine Cocaine Screen Negative 05/04/21 Unknown U Marijuana (THC) Screen Negative 05/04/21 Unknown Drugs of Abuse Note Disclamer 05/04/21 Unknown Immunofix Electrophor see below 05/05/21 03:40 AUDRA Screen Negative (Negative) 05/05/21 03:40 Proteinase 3 (PR3) Ab <1.0 AI (<1.0) 05/05/21 03:40 Myeloperoxidase Ab <1.0 AI (<1.0) 05/05/21 03:40 Complement C3 72 mg/dL (82-185) L 05/05/21 03:40 Complement C4 17 mg/dL (15-53) 05/05/21 03:40 Coronavirus (PCR) Negative (Negative) 06/05/21 09:47 Hepatitis A IgM Ab Non-reactive (NonReactive) 05/05/21 03:40 Hep Bs Antigen Non-reactive (Negative) 05/05/21 03:40 Hep B Core IgM Ab Non-reactive (NonReactive) 05/05/21 03:40 Hepatitis C Antibody Reactive (NonReactive) A 05/05/21 03:40 Blood Type O POSITIVE 05/23/21 07:12 Antibody Screen Negative 05/23/21 07:12 Crossmatch See Detail 05/23/21 07:12 [place]/IV: Voiding Method Indwelling Catheter Nutrition/Malnutrition Assess - Dietary Evaluation Nutrition/Malnutrition Findings: Nutrition Notes Start: 05/05/21 16:15 Freq: Status: Discharge Protocol: Document 06/03/21 14:39 ROSAURA (Rec: 06/03/21 14:42 ROSAURA [id number]) Nutrition Notes Initial or Follow up Reassessment Current Diagnosis Acute Kidney Injury, Hypertension,Heart Failure, Respiratory Failure Other Pertinent Diagnosis Severe COVID-19 pneu, metabolic encephalopathy, polysubstance dependence Current Diet TF - Nepro at 45ml/hr Labs/Tests BUN 44 Pertinent Medications reviewed Height 5 ft 7 in Weight 81.647 kg [place] Body Weight (kg) 67.27 BMI 28.1 Weight Status Overweight Subjective/Other Information Pt remains on vent support. Still awaiting family consent for trach and PEG placement. Spoke with RN via phone (14:18 ); pt continues to tolerate TF at goal rate Percent of energy/protein needs met: 100% energy 89% pro Burn Absent Trauma Absent #1 Nutrition Diagnosis Inadequate oral intake Diagnosis Progress(for reassessment Continues documentation) Is patient on ventilator? Yes Is Patient Ambulatory and/or Out of Bed No REE-([place]-confined to bed) [phone] Calculation Used for Recommendations [place] Additional Notes Pro needs 1.2-2g/k-163g/ day Fluid needs 1ml/kcal Nutrition Intervention Nutrition Support: Continue Nepro at 45ml/hr with 200ml water flush q4h. Kcal 1,944 Protein (gm) 87 Carbohydrates (gm) 174 Fat (gm) 104 Fluid (mL) 785 Fiber (gm) 14 Goal #1 TF tolerance Goal #2 TF to meet at least 75% energy and pro needs Follow-Up By: 06/10/21 Additional Comments F/U: stable TF, vent status, trach/PEG placement, wt
--- NOTE | 2021-06-04 14:29 | Progress Note ---
Assessment and Plan Acute hypoxic resp failure on MVS COVID positive NSTEMI Acute kidney injury Cardiomyopathy EF 35-40% History of hepatitis C Elevated D-dimer. Low probability for PE seen on VQ scan Tobacco abuse Polysubstance abusepatient with positive methamphetamines and has a history of cocaine use Anemia Failed extubation x3 now awaiting trach placement Continue with daily SBTs The primary service is in discussions with his family re goals of care and possible tracheostomy placement Per hospital medicine- family are leaning towards hospice - VAP bundle addressed, aspiration precautions - titrate supplemental oxygen to keep SpO2 88-90% - Bronchodilators with pulmonary hygiene per RT - continue accuchecks with glycemic control per SSI (While critically ill target blood glucose of 140-180 mg/dL; avoid hypoglycemia) - avoid nephrotoxins, renally dose all medications - avoid benzodiazepines, reduce the possibility of delirium - prn analgesia per pain score - Maintenance of sleep-wake cycle, avoid delirium - Stress ulcer prophylaxis -Therapeutic anticoagulation- heparin infusion - mobility, off loading and frequent turning per facility protocol for pressure ulcer prevention - Monitor hemodynamics closely -Supportive transfusions as clinically indicated to keep HgB >7g/dL - continue other care per attending / other consultants CONDITION: CRITICAL PROGNOSIS: GUARDED CODE STATUS: FULL CODE The high probability of a clinically significant, sudden or life-threatening deterioration of the [respiratory, cardiovascular & neurologic ] system(s) required my full and direct attention, intervention and personal management. The aggregate critical care time was [33] minutes without overlap. Time includes spent on; [x] Data Review and interpretation [x] Patient assessment and monitoring of vital signs [x] Documentation [x] Medication orders and management Subjective Date of service: 06/04/21 Principal diagnosis: AHRF; COVID-19 infection; NSTEMI; YE; HFrEF (35-40%); Polysubstance abuse Interval history: Follow up for acute hypoxemic resp failure on MVS, COVID infection;YE; Hypertension Seen and examined. Vitals, labs, medications, chart and imaging reviewed. Discussed with respiratory and nursing care staff. On going fevers, more awake Fentanyl at 0.5mcg Has Merino catheter for urinary retention MVS: 16/450/8/25% Daily SBT as tolerated Family has been located and are in discussions with hospital medicine service re goals of care Objective Vital Signs - 12hr 06/04/21 06/04/21 06/04/21 03:00 03:22 04:00 Temperature 100.4 F H Pulse Rate 83 85 Pulse Rate [ 82 From Monitor] Respiratory 26 H 19 Rate Blood Pressure 143/97 135/97 O2 Sat by Pulse 97 97 Oximetry 06/04/21 06/04/21 06/04/21 05:00 05:25 06:00 Temperature Pulse Rate 87 87 87 Pulse Rate [ From Monitor] Respiratory 22 19 Rate Blood Pressure 141/101 141/101 151/103 O2 Sat by Pulse 98 98 Oximetry 06/04/21 06/04/21 06/04/21 06:20 07:00 07:45 Temperature Pulse Rate 88 89 91 H Pulse Rate [ From Monitor] Respiratory 26 H Rate Blood Pressure 151/103 147/105 156/102 O2 Sat by Pulse 98 97 Oximetry 06/04/21 06/04/21 06/04/21 08:00 09:00 10:00 Temperature 1004 F H Pulse Rate 91 H 89 90 Pulse Rate [ From Monitor] Respiratory 30 H 23 24 Rate Blood Pressure 156/102 155/100 148/99 O2 Sat by Pulse 98 Oximetry 06/04/21 06/04/21 06/04/21 11:00 11:33 11:44 Temperature Pulse Rate 88 89 87 Pulse Rate [ From Monitor] Respiratory 26 H 41 H Rate Blood Pressure 143/97 147/99 147/99 O2 Sat by Pulse 98 98 100 Oximetry 06/04/21 06/04/21 12:00 13:00 Temperature 99.9 F H Pulse Rate 83 75 Pulse Rate [ From Monitor] Respiratory 23 17 Rate Blood Pressure 143/98 131/86 O2 Sat by Pulse 98 99 Oximetry Constitutional: appears uncomfortable, other (middle aged male with mildly increased respiratory effort at rest) Eyes: non-icteric ENT: oropharynx moist, other (ETT 24 cm ELIZABET) Neck: supple, no lymphadenopathy, no JVD Effort: mildly labored Ascultation: Bilateral: clear, diminished breath sounds, rhonchi Percussion: Bilateral: not dull Cardiovascular: regular rate and rhythm, other (S1,S2) Gastrointestinal: normoactive bowel sounds, soft, non-tender, non-distended Integumentary: normal Extremities: no cyanosis, no edema, pulses normal Neurologic: non-focal exam (grossly), pupils equal and round, unable to assess (sedated) Psychiatric: other CBC and BMP: 06/05/21 04:24 06/05/21 04:24 ABG, PT/INR, D-dimer: ABG ABG pH 7.443 pH Units (7.350-7.450) 05/27/21 09:20 ABG pCO2 38.8 mm Hg 05/27/21 09:20 ABG pO2 115.2 mm Hg (80.0-90.0) H 05/27/21 09:20 ABG O2 Saturation 98.3 % (95.0-99.0) 05/27/21 09:20 PT/INR, D-dimer PT 14.9 Sec. (12.2-14.9) 05/25/21 04:25 INR 1.05 (0.87-1.13) 05/25/21 04:25 D-Dimer 2730.61 ng/mlDDU (0-234) H 05/12/21 07:19 Abnormal lab findings: Abnormal Labs 05/04/21 05/04/21 05/04/21 07:25 07:25 07:25 WBC 12.9 H RBC 3.04 L Hgb 9.5 L Hct 28.4 L MCV MCHC RDW 15.4 H Plt Count Lymph % (Auto) 11.4 L [place] % (Auto) 10.1 H Lymph # (Auto) [place] # (Auto) 1.3 H Seg Neutrophils % 78.0 H Seg Neuts % (Manual) Lymphocytes % (Manual) Monocytes % (Manual) Seg Neutrophils # 10.0 H Seg Neutrophils # Man Lymphocytes # (Manual) Monocytes # (Manual) Haptoglobin PT 15.1 H APTT D-Dimer Heparin Anti-Xa Level ABG pH ABG pO2 ABG HCO3 ABG O2 Saturation ABG Base Excess ABG Hemoglobin Oxyhemoglobin Sodium 135 L Potassium Chloride Carbon Dioxide BUN 65 H Creatinine 3.4 H Glucose 118 H POC Glucose Calcium Phosphorus Magnesium Iron TIBC Ferritin Total Bilirubin 1.50 H AST 519 H ALT 475 H Lactate Dehydrogenase Total Creatine Kinase Troponin T 1.300 H* C-Reactive Protein Albumin Urine WBC (Auto) Urine Creatinine Urine Total Protein Complement C3 Coronavirus (PCR) Hepatitis C Antibody Crossmatch 05/04/21 05/04/21 05/04/21 07:25 08:42 08:42 WBC RBC Hgb Hct MCV MCHC RDW Plt Count Lymph % (Auto) [place] % (Auto) Lymph # (Auto) [place] # (Auto) Seg Neutrophils % Seg Neuts % (Manual) Lymphocytes % (Manual) Monocytes % (Manual) Seg Neutrophils # Seg Neutrophils # Man Lymphocytes # (Manual) Monocytes # (Manual) Haptoglobin PT APTT D-Dimer 579.49 H Heparin Anti-Xa Level ABG pH ABG pO2 ABG HCO3 ABG O2 Saturation ABG Base Excess ABG Hemoglobin Oxyhemoglobin Sodium Potassium Chloride Carbon Dioxide BUN Creatinine Glucose POC Glucose Calcium Phosphorus Magnesium Iron TIBC Ferritin Total Bilirubin AST ALT Lactate Dehydrogenase Total Creatine Kinase 406 H Troponin T 1.230 H* C-Reactive Protein Albumin Urine WBC (Auto) Urine Creatinine Urine Total Protein Complement C3 Coronavirus (PCR) Hepatitis C Antibody Crossmatch 05/04/21 05/04/21 05/04/21 10:13 13:34 18:14 WBC RBC Hgb 8.8 L Hct 26.6 L MCV MCHC RDW Plt Count Lymph % (Auto) [place] % (Auto) Lymph # (Auto) [place] # (Auto) Seg Neutrophils % Seg Neuts % (Manual) Lymphocytes % (Manual) Monocytes % (Manual) Seg Neutrophils # Seg Neutrophils # Man Lymphocytes # (Manual) Monocytes # (Manual) Haptoglobin PT APTT D-Dimer Heparin Anti-Xa Level < 0.10 L ABG pH ABG pO2 ABG HCO3 ABG O2 Saturation ABG Base Excess ABG Hemoglobin Oxyhemoglobin Sodium Potassium Chloride Carbon Dioxide BUN Creatinine Glucose POC Glucose Calcium Phosphorus Magnesium Iron TIBC Ferritin Total Bilirubin AST ALT Lactate Dehydrogenase Total Creatine Kinase Troponin T 1.400 H* C-Reactive Protein Albumin Urine WBC (Auto) Urine Creatinine Urine Total Protein Complement C3 Coronavirus (PCR) Hepatitis C Antibody Crossmatch 05/05/21 05/05/21 05/05/21 03:40 03:40 03:40 WBC RBC Hgb Hct MCV MCHC RDW Plt Count Lymph % (Auto) [place] % (Auto) Lymph # (Auto) [place] # (Auto) Seg Neutrophils % Seg Neuts % (Manual) Lymphocytes % (Manual) Monocytes % (Manual) Seg Neutrophils # Seg Neutrophils # Man Lymphocytes # (Manual) Monocytes # (Manual) Haptoglobin PT APTT D-Dimer Heparin Anti-Xa Level 0.11 L ABG pH ABG pO2 ABG HCO3 ABG O2 Saturation ABG Base Excess ABG Hemoglobin Oxyhemoglobin Sodium Potassium 3.3 L Chloride Carbon Dioxide BUN 59 H Creatinine 2.6 H Glucose 139 H POC Glucose Calcium Phosphorus Magnesium Iron TIBC Ferritin Total Bilirubin AST ALT Lactate Dehydrogenase Total Creatine Kinase Troponin T C-Reactive Protein Albumin Urine WBC (Auto) Urine Creatinine Urine Total Protein Complement C3 Coronavirus (PCR) Hepatitis C Antibody Reactive A Crossmatch 05/05/21 05/05/21 05/05/21 03:40 08:30 09:57 WBC RBC Hgb Hct MCV MCHC RDW Plt Count Lymph % (Auto) [place] % (Auto) Lymph # (Auto) [place] # (Auto) Seg Neutrophils % Seg Neuts % (Manual) Lymphocytes % (Manual) Monocytes % (Manual) Seg Neutrophils # Seg Neutrophils # Man Lymphocytes # (Manual) Monocytes # (Manual) Haptoglobin PT APTT D-Dimer Heparin Anti-Xa Level ABG pH ABG pO2 ABG HCO3 ABG O2 Saturation ABG Base Excess ABG Hemoglobin Oxyhemoglobin Sodium Potassium Chloride Carbon Dioxide BUN Creatinine Glucose POC Glucose Calcium Phosphorus Magnesium Iron TIBC Ferritin Total Bilirubin AST ALT Lactate Dehydrogenase Total Creatine Kinase Troponin T C-Reactive Protein Albumin Urine WBC (Auto) Urine Creatinine 100.8 H Urine Total Protein Complement C3 72 L Coronavirus (PCR) Positive A Hepatitis C Antibody Crossmatch 05/05/21 05/05/21 05/05/21 11:28 17:00 19:51 WBC RBC Hgb Hct MCV MCHC RDW Plt Count Lymph % (Auto) [place] % (Auto) Lymph # (Auto) [place] # (Auto) Seg Neutrophils % Seg Neuts % (Manual) Lymphocytes % (Manual) Monocytes % (Manual) Seg Neutrophils # Seg Neutrophils # Man Lymphocytes # (Manual) Monocytes # (Manual) Haptoglobin PT APTT D-Dimer Heparin Anti-Xa Level 0.10 L 0.22 L ABG pH 7.304 L ABG pO2 140.8 H ABG HCO3 ABG O2 Saturation ABG Base Excess -2.1 L ABG Hemoglobin 10.2 L Oxyhemoglobin Sodium Potassium Chloride Carbon Dioxide BUN Creatinine Glucose POC Glucose Calcium Phosphorus Magnesium Iron TIBC Ferritin Total Bilirubin AST ALT Lactate Dehydrogenase Total Creatine Kinase Troponin T C-Reactive Protein Albumin Urine WBC (Auto) Urine Creatinine Urine Total Protein Complement C3 Coronavirus (PCR) Hepatitis C Antibody Crossmatch 05/06/21 05/06/21 05/06/21 03:47 06:15 17:53 WBC RBC Hgb 9.0 L Hct 27.8 L MCV MCHC RDW Plt Count Lymph % (Auto) [place] % (Auto) Lymph # (Auto) [place] # (Auto) Seg Neutrophils % Seg Neuts % (Manual) Lymphocytes % (Manual) Monocytes % (Manual) Seg Neutrophils # Seg Neutrophils # Man Lymphocytes # (Manual) Monocytes # (Manual) Haptoglobin PT APTT D-Dimer Heparin Anti-Xa Level 0.10 L ABG pH ABG pO2 143.5 H ABG HCO3 ABG O2 Saturation ABG Base Excess -2.4 L ABG Hemoglobin 6.9 L Oxyhemoglobin Sodium Potassium Chloride Carbon Dioxide BUN Creatinine Glucose POC Glucose Calcium Phosphorus Magnesium Iron TIBC Ferritin Total Bilirubin AST ALT Lactate Dehydrogenase Total Creatine Kinase Troponin T C-Reactive Protein Albumin Urine WBC (Auto) Urine Creatinine Urine Total Protein Complement C3 Coronavirus (PCR) Hepatitis C Antibody Crossmatch 05/07/21 05/07/21 05/07/21 00:07 03:22 03:45 WBC RBC Hgb Hct MCV MCHC RDW Plt Count Lymph % (Auto) [place] % (Auto) Lymph # (Auto) [place] # (Auto) Seg Neutrophils % Seg Neuts % (Manual) Lymphocytes % (Manual) Monocytes % (Manual) Seg Neutrophils # Seg Neutrophils # Man Lymphocytes # (Manual) Monocytes # (Manual) Haptoglobin PT APTT D-Dimer Heparin Anti-Xa Level < 0.10 L ABG pH ABG pO2 104.3 H ABG HCO3 ABG O2 Saturation ABG Base Excess -2.6 L ABG Hemoglobin 9.1 L Oxyhemoglobin Sodium Potassium Chloride 107.1 H Carbon Dioxide 20 L BUN 56 H Creatinine 2.9 H Glucose POC Glucose Calcium Phosphorus Magnesium Iron TIBC Ferritin Total Bilirubin AST ALT Lactate Dehydrogenase Total Creatine Kinase Troponin T C-Reactive Protein Albumin Urine WBC (Auto) Urine Creatinine Urine Total Protein Complement C3 Coronavirus (PCR) Hepatitis C Antibody Crossmatch 05/07/21 05/07/21 05/07/21 07:44 16:28 22:41 WBC RBC Hgb Hct MCV MCHC RDW Plt Count Lymph % (Auto) [place] % (Auto) Lymph # (Auto) [place] # (Auto) Seg Neutrophils % Seg Neuts % (Manual) Lymphocytes % (Manual) Monocytes % (Manual) Seg Neutrophils # Seg Neutrophils # Man Lymphocytes # (Manual) Monocytes # (Manual) Haptoglobin PT APTT D-Dimer Heparin Anti-Xa Level < 0.10 L 0.10 L < 0.10 L ABG pH ABG pO2 ABG HCO3 ABG O2 Saturation ABG Base Excess ABG Hemoglobin Oxyhemoglobin Sodium Potassium Chloride Carbon Dioxide BUN Creatinine Glucose POC Glucose Calcium Phosphorus Magnesium Iron TIBC Ferritin Total Bilirubin AST ALT Lactate Dehydrogenase Total Creatine Kinase Troponin T C-Reactive Protein Albumin Urine WBC (Auto) Urine Creatinine Urine Total Protein Complement C3 Coronavirus (PCR) Hepatitis C Antibody Crossmatch 05/08/21 05/08/21 05/08/21 03:25 04:34 07:30 WBC 12.4 H RBC 3.02 L Hgb 9.5 L Hct 29.2 L MCV 97 H MCHC RDW 16.7 H Plt Count Lymph % (Auto) 8.1 L [place] % (Auto) 11.0 H Lymph # (Auto) 1.0 L [place] # (Auto) 1.4 H Seg Neutrophils % 80.1 H Seg Neuts % (Manual) Lymphocytes % (Manual) Monocytes % (Manual) Seg Neutrophils # 9.9 H Seg Neutrophils # Man Lymphocytes # (Manual) Monocytes # (Manual) Haptoglobin PT APTT D-Dimer Heparin Anti-Xa Level ABG pH ABG pO2 139.0 H ABG HCO3 ABG O2 Saturation ABG Base Excess ABG Hemoglobin 8.8 L Oxyhemoglobin Sodium Potassium Chloride 110.5 H Carbon Dioxide BUN 59 H Creatinine 2.8 H Glucose 103 H POC Glucose Calcium Phosphorus Magnesium Iron TIBC Ferritin Total Bilirubin AST ALT 327 H Lactate Dehydrogenase Total Creatine Kinase Troponin T C-Reactive Protein Albumin 3.1 L Urine WBC (Auto) Urine Creatinine Urine Total Protein Complement C3 Coronavirus (PCR) Hepatitis C Antibody Crossmatch 05/09/21 05/09/21 05/09/21 04:10 04:20 04:20 WBC 11.7 H RBC 2.79 L Hgb 8.7 L Hct 26.5 L MCV 95 H MCHC RDW 16.2 H Plt Count Lymph % (Auto) [place] % (Auto) Lymph # (Auto) [place] # (Auto) Seg Neutrophils % Seg Neuts % (Manual) Lymphocytes % (Manual) Monocytes % (Manual) Seg Neutrophils # Seg Neutrophils # Man Lymphocytes # (Manual) Monocytes # (Manual) Haptoglobin PT APTT D-Dimer Heparin Anti-Xa Level ABG pH ABG pO2 161.6 H ABG HCO3 ABG O2 Saturation ABG Base Excess ABG Hemoglobin 8.3 L Oxyhemoglobin Sodium 151 H Potassium Chloride 114.5 H Carbon Dioxide 21 L BUN 57 H Creatinine 2.4 H Glucose POC Glucose Calcium Phosphorus Magnesium Iron TIBC Ferritin Total Bilirubin AST ALT 210 H Lactate Dehydrogenase Total Creatine Kinase Troponin T C-Reactive Protein Albumin 2.9 L Urine WBC (Auto) Urine Creatinine Urine Total Protein Complement C3 Coronavirus (PCR) Hepatitis C Antibody Crossmatch 05/09/21 05/09/21 05/09/21 09:48 09:48 13:22 WBC 11.6 H RBC 3.00 L Hgb 9.0 L Hct 28.4 L MCV MCHC RDW 15.9 H Plt Count Lymph % (Auto) 5.9 L [place] % (Auto) 8.9 H Lymph # (Auto) 0.7 L [place] # (Auto) 1.0 H Seg Neutrophils % 84.3 H Seg Neuts % (Manual) Lymphocytes % (Manual) Monocytes % (Manual) Seg Neutrophils # 9.8 H Seg Neutrophils # Man Lymphocytes # (Manual) Monocytes # (Manual) Haptoglobin PT APTT D-Dimer Heparin Anti-Xa Level ABG pH ABG pO2 ABG HCO3 ABG O2 Saturation ABG Base Excess ABG Hemoglobin Oxyhemoglobin Sodium Potassium Chloride Carbon Dioxide BUN Creatinine Glucose POC Glucose Calcium Phosphorus Magnesium Iron TIBC Ferritin Total Bilirubin AST ALT Lactate Dehydrogenase Total Creatine Kinase Troponin T C-Reactive Protein 8.70 H Albumin Urine WBC (Auto) 25.0 H Urine Creatinine Urine Total Protein Complement C3 Coronavirus (PCR) Hepatitis C Antibody Crossmatch 05/09/21 05/09/21 05/10/21 15:20 18:16 04:57 WBC RBC 2.87 L Hgb 8.8 L Hct 27.0 L MCV MCHC RDW 15.9 H Plt Count Lymph % (Auto) [place] % (Auto) Lymph # (Auto) [place] # (Auto) Seg Neutrophils % Seg Neuts % (Manual) Lymphocytes % (Manual) Monocytes % (Manual) Seg Neutrophils # Seg Neutrophils # Man Lymphocytes # (Manual) Monocytes # (Manual) Haptoglobin PT APTT D-Dimer Heparin Anti-Xa Level ABG pH ABG pO2 102.0 H ABG HCO3 ABG O2 Saturation ABG Base Excess -2.8 L ABG Hemoglobin 9.0 L Oxyhemoglobin Sodium Potassium Chloride Carbon Dioxide BUN Creatinine Glucose POC Glucose 130 H Calcium Phosphorus Magnesium Iron TIBC Ferritin Total Bilirubin AST ALT Lactate Dehydrogenase Total Creatine Kinase Troponin T C-Reactive Protein Albumin Urine WBC (Auto) Urine Creatinine Urine Total Protein Complement C3 Coronavirus (PCR) Hepatitis C Antibody Crossmatch 05/10/21 05/10/21 05/10/21 04:57 04:57 04:57 WBC RBC Hgb Hct MCV MCHC RDW Plt Count Lymph % (Auto) [place] % (Auto) Lymph # (Auto) [place] # (Auto) Seg Neutrophils % Seg Neuts % (Manual) Lymphocytes % (Manual) Monocytes % (Manual) Seg Neutrophils # Seg Neutrophils # Man Lymphocytes # (Manual) Monocytes # (Manual) Haptoglobin PT APTT D-Dimer 1546.78 H Heparin Anti-Xa Level ABG pH ABG pO2 ABG HCO3 ABG O2 Saturation ABG Base Excess ABG Hemoglobin Oxyhemoglobin Sodium 148 H Potassium Chloride 114.9 H Carbon Dioxide 21 L BUN 57 H Creatinine 2.3 H Glucose 157 H POC Glucose Calcium Phosphorus Magnesium Iron TIBC Ferritin 888.2 H Total Bilirubin AST ALT Lactate Dehydrogenase 289 H Total Creatine Kinase Troponin T C-Reactive Protein 6.80 H Albumin Urine WBC (Auto) Urine Creatinine Urine Total Protein Complement C3 Coronavirus (PCR) Hepatitis C Antibody Crossmatch 05/10/21 05/10/21 05/10/21 05:09 08:04 11:03 WBC RBC Hgb Hct MCV MCHC RDW Plt Count Lymph % (Auto) [place] % (Auto) Lymph # (Auto) [place] # (Auto) Seg Neutrophils % Seg Neuts % (Manual) Lymphocytes % (Manual) Monocytes % (Manual) Seg Neutrophils # Seg Neutrophils # Man Lymphocytes # (Manual) Monocytes # (Manual) Haptoglobin PT APTT D-Dimer Heparin Anti-Xa Level ABG pH 7.473 H ABG pO2 114.6 H ABG HCO3 ABG O2 Saturation ABG Base Excess ABG Hemoglobin 9.5 L Oxyhemoglobin Sodium Potassium Chloride Carbon Dioxide BUN Creatinine Glucose POC Glucose 152 H Calcium Phosphorus Magnesium Iron TIBC Ferritin Total Bilirubin AST ALT Lactate Dehydrogenase Total Creatine Kinase Troponin T C-Reactive Protein Albumin Urine WBC (Auto) Urine Creatinine 100.8 H Urine Total Protein 42 H Complement C3 Coronavirus (PCR) Hepatitis C Antibody Crossmatch 05/10/21 05/10/21 05/10/21 13:07 18:01 23:31 WBC RBC Hgb Hct MCV MCHC RDW Plt Count Lymph % (Auto) [place] % (Auto) Lymph # (Auto) [place] # (Auto) Seg Neutrophils % Seg Neuts % (Manual) Lymphocytes % (Manual) Monocytes % (Manual) Seg Neutrophils # Seg Neutrophils # Man Lymphocytes # (Manual) Monocytes # (Manual) Haptoglobin PT APTT D-Dimer Heparin Anti-Xa Level ABG pH ABG pO2 ABG HCO3 ABG O2 Saturation ABG Base Excess ABG Hemoglobin Oxyhemoglobin Sodium Potassium Chloride Carbon Dioxide BUN Creatinine Glucose POC Glucose 150 H 189 H 142 H Calcium Phosphorus Magnesium Iron TIBC Ferritin Total Bilirubin AST ALT Lactate Dehydrogenase Total Creatine Kinase Troponin T C-Reactive Protein Albumin Urine WBC (Auto) Urine Creatinine Urine Total Protein Complement C3 Coronavirus (PCR) Hepatitis C Antibody Crossmatch 05/10/21 05/11/21 05/11/21 Unknown 05:25 06:53 WBC RBC Hgb Hct MCV MCHC RDW Plt Count Lymph % (Auto) [place] % (Auto) Lymph # (Auto) [place] # (Auto) Seg Neutrophils % Seg Neuts % (Manual) Lymphocytes % (Manual) Monocytes % (Manual) Seg Neutrophils # Seg Neutrophils # Man Lymphocytes # (Manual) Monocytes # (Manual) Haptoglobin PT APTT D-Dimer Heparin Anti-Xa Level ABG pH ABG pO2 126.6 H ABG HCO3 ABG O2 Saturation ABG Base Excess ABG Hemoglobin 9.2 L Oxyhemoglobin Sodium 150 H Potassium Chloride 116.6 H Carbon Dioxide 21 L BUN 62 H Creatinine 2.5 H Glucose 142 H POC Glucose 163 H Calcium Phosphorus Magnesium Iron TIBC Ferritin Total Bilirubin AST ALT Lactate Dehydrogenase Total Creatine Kinase Troponin T C-Reactive Protein Albumin Urine WBC (Auto) Urine Creatinine Urine Total Protein Complement C3 Coronavirus (PCR) Hepatitis C Antibody Crossmatch 05/11/21 05/11/21 05/11/21 06:53 11:06 13:51 WBC RBC 3.07 L Hgb 9.3 L Hct 29.0 L MCV 95 H MCHC RDW 16.1 H Plt Count Lymph % (Auto) [place] % (Auto) Lymph # (Auto) [place] # (Auto) Seg Neutrophils % Seg Neuts % (Manual) Lymphocytes % (Manual) Monocytes % (Manual) Seg Neutrophils # Seg Neutrophils # Man Lymphocytes # (Manual) Monocytes # (Manual) Haptoglobin PT APTT D-Dimer Heparin Anti-Xa Level ABG pH ABG pO2 74.9 L ABG HCO3 ABG O2 Saturation ABG Base Excess -3.3 L ABG Hemoglobin 10.8 L Oxyhemoglobin Sodium Potassium Chloride Carbon Dioxide BUN Creatinine Glucose POC Glucose 145 H Calcium Phosphorus Magnesium Iron TIBC Ferritin Total Bilirubin AST ALT Lactate Dehydrogenase Total Creatine Kinase Troponin T C-Reactive Protein Albumin Urine WBC (Auto) Urine Creatinine Urine Total Protein Complement C3 Coronavirus (PCR) Hepatitis C Antibody Crossmatch 05/11/21 05/11/21 05/11/21 14:43 14:43 15:47 WBC RBC Hgb 9.2 L Hct 29.7 L MCV MCHC RDW Plt Count Lymph % (Auto) [place] % (Auto) Lymph # (Auto) [place] # (Auto) Seg Neutrophils % Seg Neuts % (Manual) Lymphocytes % (Manual) Monocytes % (Manual) Seg Neutrophils # Seg Neutrophils # Man Lymphocytes # (Manual) Monocytes # (Manual) Haptoglobin PT 15.6 H APTT D-Dimer Heparin Anti-Xa Level ABG pH ABG pO2 ABG HCO3 ABG O2 Saturation ABG Base Excess ABG Hemoglobin Oxyhemoglobin Sodium Potassium Chloride Carbon Dioxide BUN Creatinine Glucose POC Glucose 137 H Calcium Phosphorus Magnesium Iron TIBC Ferritin Total Bilirubin AST ALT Lactate Dehydrogenase Total Creatine Kinase Troponin T C-Reactive Protein Albumin Urine WBC (Auto) Urine Creatinine Urine Total Protein Complement C3 Coronavirus (PCR) Hepatitis C Antibody Crossmatch 05/12/21 05/12/21 05/12/21 00:04 05:07 07:19 WBC 11.9 H RBC 3.00 L Hgb 9.1 L Hct 28.9 L MCV 96 H MCHC RDW 16.7 H Plt Count Lymph % (Auto) 11.5 L [place] % (Auto) 8.2 H Lymph # (Auto) [place] # (Auto) 1.0 H Seg Neutrophils % 80.0 H Seg Neuts % (Manual) Lymphocytes % (Manual) Monocytes % (Manual) Seg Neutrophils # 9.6 H Seg Neutrophils # Man Lymphocytes # (Manual) Monocytes # (Manual) Haptoglobin PT APTT D-Dimer Heparin Anti-Xa Level ABG pH ABG pO2 ABG HCO3 ABG O2 Saturation ABG Base Excess ABG Hemoglobin Oxyhemoglobin Sodium Potassium Chloride Carbon Dioxide BUN Creatinine Glucose POC Glucose 121 H 117 H Calcium Phosphorus Magnesium Iron TIBC Ferritin Total Bilirubin AST ALT Lactate Dehydrogenase Total Creatine Kinase Troponin T C-Reactive Protein Albumin Urine WBC (Auto) Urine Creatinine Urine Total Protein Complement C3 Coronavirus (PCR) Hepatitis C Antibody Crossmatch 05/12/21 05/12/21 05/12/21 07:19 07:19 07:19 WBC RBC Hgb Hct MCV MCHC RDW Plt Count Lymph % (Auto) [place] % (Auto) Lymph # (Auto) [place] # (Auto) Seg Neutrophils % Seg Neuts % (Manual) Lymphocytes % (Manual) Monocytes % (Manual) Seg Neutrophils # Seg Neutrophils # Man Lymphocytes # (Manual) Monocytes # (Manual) Haptoglobin PT APTT D-Dimer 2730.61 H Heparin Anti-Xa Level ABG pH ABG pO2 ABG HCO3 ABG O2 Saturation ABG Base Excess ABG Hemoglobin Oxyhemoglobin Sodium 146 H Potassium 5.1 H Chloride 112.4 H Carbon Dioxide 21 L BUN 61 H Creatinine 2.2 H Glucose 136 H POC Glucose Calcium 8.1 L Phosphorus Magnesium Iron TIBC Ferritin 640.2 H Total Bilirubin AST ALT Lactate Dehydrogenase 314 H Total Creatine Kinase Troponin T C-Reactive Protein 1.60 H Albumin Urine WBC (Auto) Urine Creatinine Urine Total Protein Complement C3 Coronavirus (PCR) Hepatitis C Antibody Crossmatch 05/12/21 05/12/21 05/12/21 11:10 16:10 16:38 WBC RBC Hgb Hct MCV MCHC RDW Plt Count Lymph % (Auto) [place] % (Auto) Lymph # (Auto) [place] # (Auto) Seg Neutrophils % Seg Neuts % (Manual) Lymphocytes % (Manual) Monocytes % (Manual) Seg Neutrophils # Seg Neutrophils # Man Lymphocytes # (Manual) Monocytes # (Manual) Haptoglobin PT APTT D-Dimer Heparin Anti-Xa Level 0.20 L ABG pH ABG pO2 ABG HCO3 ABG O2 Saturation ABG Base Excess ABG Hemoglobin Oxyhemoglobin Sodium Potassium Chloride Carbon Dioxide BUN Creatinine Glucose POC Glucose 131 H 157 H Calcium Phosphorus Magnesium Iron TIBC Ferritin Total Bilirubin AST ALT Lactate Dehydrogenase Total Creatine Kinase Troponin T C-Reactive Protein Albumin Urine WBC (Auto) Urine Creatinine Urine Total Protein Complement C3 Coronavirus (PCR) Hepatitis C Antibody Crossmatch 05/12/21 05/13/21 05/13/21 23:30 00:12 04:20 WBC RBC Hgb Hct MCV MCHC RDW Plt Count Lymph % (Auto) [place] % (Auto) Lymph # (Auto) [place] # (Auto) Seg Neutrophils % Seg Neuts % (Manual) Lymphocytes % (Manual) Monocytes % (Manual) Seg Neutrophils # Seg Neutrophils # Man Lymphocytes # (Manual) Monocytes # (Manual) Haptoglobin PT APTT D-Dimer Heparin Anti-Xa Level 0.13 L ABG pH ABG pO2 ABG HCO3 ABG O2 Saturation ABG Base Excess ABG Hemoglobin Oxyhemoglobin Sodium Potassium Chloride 111.2 H Carbon Dioxide BUN 53 H Creatinine 1.9 H Glucose 121 H POC Glucose 115 H Calcium 8.3 L Phosphorus Magnesium Iron TIBC Ferritin Total Bilirubin AST ALT Lactate Dehydrogenase Total Creatine Kinase Troponin T C-Reactive Protein Albumin Urine WBC (Auto) Urine Creatinine Urine Total Protein Complement C3 Coronavirus (PCR) Hepatitis C Antibody Crossmatch 05/13/21 05/13/21 05/13/21 04:20 11:15 11:29 WBC 13.1 H RBC 2.86 L Hgb 8.5 L Hct 26.9 L MCV MCHC RDW 15.7 H Plt Count Lymph % (Auto) [place] % (Auto) Lymph # (Auto) [place] # (Auto) Seg Neutrophils % Seg Neuts % (Manual) Lymphocytes % (Manual) Monocytes % (Manual) Seg Neutrophils # Seg Neutrophils # Man Lymphocytes # (Manual) Monocytes # (Manual) Haptoglobin PT APTT D-Dimer Heparin Anti-Xa Level ABG pH 7.456 H ABG pO2 106.0 H ABG HCO3 ABG O2 Saturation ABG Base Excess ABG Hemoglobin 7.1 L Oxyhemoglobin Sodium Potassium Chloride Carbon Dioxide BUN Creatinine Glucose POC Glucose 121 H Calcium Phosphorus Magnesium Iron TIBC Ferritin Total Bilirubin AST ALT Lactate Dehydrogenase Total Creatine Kinase Troponin T C-Reactive Protein Albumin Urine WBC (Auto) Urine Creatinine Urine Total Protein Complement C3 Coronavirus (PCR) Hepatitis C Antibody Crossmatch 05/13/21 05/13/21 05/14/21 16:38 23:43 04:26 WBC 14.2 H RBC 3.11 L Hgb 9.4 L Hct 29.3 L MCV MCHC RDW 15.4 H Plt Count Lymph % (Auto) [place] % (Auto) Lymph # (Auto) [place] # (Auto) Seg Neutrophils % Seg Neuts % (Manual) Lymphocytes % (Manual) Monocytes % (Manual) Seg Neutrophils # Seg Neutrophils # Man Lymphocytes # (Manual) Monocytes # (Manual) Haptoglobin PT APTT D-Dimer Heparin Anti-Xa Level ABG pH ABG pO2 ABG HCO3 ABG O2 Saturation ABG Base Excess ABG Hemoglobin Oxyhemoglobin Sodium Potassium Chloride Carbon Dioxide BUN Creatinine Glucose POC Glucose 119 H 55 L Calcium Phosphorus Magnesium Iron TIBC Ferritin Total Bilirubin AST ALT Lactate Dehydrogenase Total Creatine Kinase Troponin T C-Reactive Protein Albumin Urine WBC (Auto) Urine Creatinine Urine Total Protein Complement C3 Coronavirus (PCR) Hepatitis C Antibody Crossmatch 05/14/21 05/14/21 05/14/21 04:26 05:26 06:51 WBC RBC Hgb Hct MCV MCHC RDW Plt Count Lymph % (Auto) [place] % (Auto) Lymph # (Auto) [place] # (Auto) Seg Neutrophils % Seg Neuts % (Manual) Lymphocytes % (Manual) Monocytes % (Manual) Seg Neutrophils # Seg Neutrophils # Man Lymphocytes # (Manual) Monocytes # (Manual) Haptoglobin PT APTT D-Dimer Heparin Anti-Xa Level ABG pH ABG pO2 ABG HCO3 ABG O2 Saturation ABG Base Excess ABG Hemoglobin Oxyhemoglobin Sodium Potassium 3.4 L Chloride 107.6 H Carbon Dioxide BUN 42 H Creatinine 1.9 H Glucose POC Glucose 51 L 62 L Calcium Phosphorus Magnesium Iron TIBC Ferritin Total Bilirubin AST ALT Lactate Dehydrogenase Total Creatine Kinase Troponin T C-Reactive Protein Albumin Urine WBC (Auto) Urine Creatinine Urine Total Protein Complement C3 Coronavirus (PCR) Hepatitis C Antibody Crossmatch 05/14/21 05/14/21 05/14/21 09:58 12:05 12:08 WBC RBC Hgb Hct MCV MCHC RDW Plt Count Lymph % (Auto) [place] % (Auto) Lymph # (Auto) [place] # (Auto) Seg Neutrophils % Seg Neuts % (Manual) Lymphocytes % (Manual) Monocytes % (Manual) Seg Neutrophils # Seg Neutrophils # Man Lymphocytes # (Manual) Monocytes # (Manual) Haptoglobin PT APTT D-Dimer Heparin Anti-Xa Level ABG pH ABG pO2 ABG HCO3 ABG O2 Saturation ABG Base Excess ABG Hemoglobin Oxyhemoglobin Sodium Potassium 3.4 L Chloride Carbon Dioxide BUN 36 H Creatinine 1.8 H Glucose 133 H POC Glucose 60 L 127 H Calcium Phosphorus Magnesium Iron TIBC Ferritin Total Bilirubin AST ALT Lactate Dehydrogenase Total Creatine Kinase Troponin T C-Reactive Protein Albumin Urine WBC (Auto) Urine Creatinine Urine Total Protein Complement C3 Coronavirus (PCR) Hepatitis C Antibody Crossmatch 05/14/21 05/14/21 05/15/21 17:20 23:37 05:34 WBC RBC Hgb Hct MCV MCHC RDW Plt Count Lymph % (Auto) [place] % (Auto) Lymph # (Auto) [place] # (Auto) Seg Neutrophils % Seg Neuts % (Manual) Lymphocytes % (Manual) Monocytes % (Manual) Seg Neutrophils # Seg Neutrophils # Man Lymphocytes # (Manual) Monocytes # (Manual) Haptoglobin PT APTT D-Dimer Heparin Anti-Xa Level ABG pH ABG pO2 ABG HCO3 ABG O2 Saturation ABG Base Excess ABG Hemoglobin Oxyhemoglobin Sodium Potassium Chloride Carbon Dioxide BUN Creatinine Glucose POC Glucose 144 H 115 H 119 H Calcium Phosphorus Magnesium Iron TIBC Ferritin Total Bilirubin AST ALT Lactate Dehydrogenase Total Creatine Kinase Troponin T C-Reactive Protein Albumin Urine WBC (Auto) Urine Creatinine Urine Total Protein Complement C3 Coronavirus (PCR) Hepatitis C Antibody Crossmatch 05/15/21 05/15/21 05/15/21 07:26 07:26 14:35 WBC 13.8 H RBC 3.32 L Hgb 10.0 L Hct 31.2 L MCV MCHC RDW 16.0 H Plt Count Lymph % (Auto) [place] % (Auto) Lymph # (Auto) [place] # (Auto) Seg Neutrophils % Seg Neuts % (Manual) Lymphocytes % (Manual) Monocytes % (Manual) Seg Neutrophils # Seg Neutrophils # Man Lymphocytes # (Manual) Monocytes # (Manual) Haptoglobin PT APTT D-Dimer Heparin Anti-Xa Level ABG pH ABG pO2 ABG HCO3 ABG O2 Saturation ABG Base Excess ABG Hemoglobin Oxyhemoglobin Sodium 149 H D Potassium 3.5 L Chloride 113.2 H Carbon Dioxide BUN 29 H Creatinine 1.8 H Glucose 113 H POC Glucose 143 H Calcium Phosphorus Magnesium Iron TIBC Ferritin Total Bilirubin AST ALT Lactate Dehydrogenase Total Creatine Kinase Troponin T C-Reactive Protein Albumin Urine WBC (Auto) Urine Creatinine Urine Total Protein Complement C3 Coronavirus (PCR) Hepatitis C Antibody Crossmatch 05/16/21 05/16/21 05/16/21 06:12 08:43 10:05 WBC RBC Hgb Hct MCV MCHC RDW Plt Count Lymph % (Auto) [place] % (Auto) Lymph # (Auto) [place] # (Auto) Seg Neutrophils % Seg Neuts % (Manual) Lymphocytes % (Manual) Monocytes % (Manual) Seg Neutrophils # Seg Neutrophils # Man Lymphocytes # (Manual) Monocytes # (Manual) Haptoglobin PT APTT D-Dimer Heparin Anti-Xa Level 0.21 L ABG pH ABG pO2 240.8 H ABG HCO3 ABG O2 Saturation 99.4 H ABG Base Excess -2.6 L ABG Hemoglobin 10.7 L Oxyhemoglobin Sodium Potassium Chloride Carbon Dioxide BUN Creatinine Glucose POC Glucose 34 L Calcium Phosphorus Magnesium Iron TIBC Ferritin Total Bilirubin AST ALT Lactate Dehydrogenase Total Creatine Kinase Troponin T C-Reactive Protein Albumin Urine WBC (Auto) Urine Creatinine Urine Total Protein Complement C3 Coronavirus (PCR) Hepatitis C Antibody Crossmatch 05/16/21 05/16/21 05/16/21 10:21 10:21 13:14 WBC 27.6 H RBC Hgb 11.4 L Hct MCV 99 H MCHC 30 L RDW 18.1 H Plt Count Lymph % (Auto) [place] % (Auto) Lymph # (Auto) [place] # (Auto) Seg Neutrophils % Seg Neuts % (Manual) 83.0 H Lymphocytes % (Manual) 4.0 L Monocytes % (Manual) 9.0 H Seg Neutrophils # Seg Neutrophils # Man 22.9 H Lymphocytes # (Manual) 1.1 L Monocytes # (Manual) 2.5 H Haptoglobin PT APTT D-Dimer Heparin Anti-Xa Level ABG pH ABG pO2 ABG HCO3 ABG O2 Saturation ABG Base Excess ABG Hemoglobin Oxyhemoglobin Sodium Potassium Chloride 108.8 H Carbon Dioxide 17 L BUN 26 H Creatinine 1.9 H Glucose 141 H POC Glucose Calcium Phosphorus Magnesium Iron TIBC Ferritin Total Bilirubin AST ALT Lactate Dehydrogenase Total Creatine Kinase Troponin T 0.503 H* C-Reactive Protein Albumin 3.1 L Urine WBC (Auto) Urine Creatinine Urine Total Protein Complement C3 Coronavirus (PCR) Hepatitis C Antibody Crossmatch 05/16/21 05/17/21 05/17/21 18:40 00:02 04:52 WBC RBC Hgb 8.8 L Hct 28.5 L D MCV MCHC RDW Plt Count Lymph % (Auto) [place] % (Auto) Lymph # (Auto) [place] # (Auto) Seg Neutrophils % Seg Neuts % (Manual) Lymphocytes % (Manual) Monocytes % (Manual) Seg Neutrophils # Seg Neutrophils # Man Lymphocytes # (Manual) Monocytes # (Manual) Haptoglobin PT APTT D-Dimer Heparin Anti-Xa Level ABG pH ABG pO2 ABG HCO3 ABG O2 Saturation ABG Base Excess ABG Hemoglobin Oxyhemoglobin Sodium Potassium Chloride Carbon Dioxide BUN Creatinine Glucose POC Glucose 114 H Calcium Phosphorus Magnesium Iron TIBC Ferritin Total Bilirubin AST ALT Lactate Dehydrogenase Total Creatine Kinase Troponin T 0.400 H* D C-Reactive Protein Albumin Urine WBC (Auto) Urine Creatinine Urine Total Protein Complement C3 Coronavirus (PCR) Hepatitis C Antibody Crossmatch 05/17/21 05/17/21 05/17/21 04:52 05:15 06:50 WBC RBC Hgb Hct MCV MCHC RDW Plt Count Lymph % (Auto) [place] % (Auto) Lymph # (Auto) [place] # (Auto) Seg Neutrophils % Seg Neuts % (Manual) Lymphocytes % (Manual) Monocytes % (Manual) Seg Neutrophils # Seg Neutrophils # Man Lymphocytes # (Manual) Monocytes # (Manual) Haptoglobin PT APTT D-Dimer Heparin Anti-Xa Level ABG pH ABG pO2 193.7 H ABG HCO3 27.7 H ABG O2 Saturation 99.2 H ABG Base Excess 3.4 H ABG Hemoglobin 9.2 L Oxyhemoglobin Sodium 146 H Potassium Chloride 110.3 H Carbon Dioxide BUN 33 H Creatinine 2.3 H Glucose 120 H POC Glucose 109 H Calcium Phosphorus Magnesium Iron TIBC Ferritin Total Bilirubin AST ALT Lactate Dehydrogenase Total Creatine Kinase Troponin T C-Reactive Protein Albumin Urine WBC (Auto) Urine Creatinine Urine Total Protein Complement C3 Coronavirus (PCR) Hepatitis C Antibody Crossmatch 05/17/21 05/17/21 05/17/21 10:30 11:33 15:35 WBC RBC Hgb Hct MCV MCHC RDW Plt Count Lymph % (Auto) [place] % (Auto) Lymph # (Auto) [place] # (Auto) Seg Neutrophils % Seg Neuts % (Manual) Lymphocytes % (Manual) Monocytes % (Manual) Seg Neutrophils # Seg Neutrophils # Man Lymphocytes # (Manual) Monocytes # (Manual) Haptoglobin PT APTT D-Dimer Heparin Anti-Xa Level ABG pH 7.457 H ABG pO2 162.5 H 103.7 H ABG HCO3 27.7 H 27.5 H ABG O2 Saturation ABG Base Excess 3.6 H ABG Hemoglobin 10.1 L 11.5 L Oxyhemoglobin Sodium Potassium Chloride Carbon Dioxide BUN Creatinine Glucose POC Glucose 122 H Calcium Phosphorus Magnesium Iron TIBC Ferritin Total Bilirubin AST ALT Lactate Dehydrogenase Total Creatine Kinase Troponin T C-Reactive Protein Albumin Urine WBC (Auto) Urine Creatinine Urine Total Protein Complement C3 Coronavirus (PCR) Hepatitis C Antibody Crossmatch 05/17/21 05/17/21 05/17/21 16:21 18:18 23:29 WBC RBC Hgb 9.6 L Hct 30.3 L MCV MCHC RDW Plt Count Lymph % (Auto) [place] % (Auto) Lymph # (Auto) [place] # (Auto) Seg Neutrophils % Seg Neuts % (Manual) Lymphocytes % (Manual) Monocytes % (Manual) Seg Neutrophils # Seg Neutrophils # Man Lymphocytes # (Manual) Monocytes # (Manual) Haptoglobin PT APTT D-Dimer Heparin Anti-Xa Level ABG pH ABG pO2 ABG HCO3 ABG O2 Saturation ABG Base Excess ABG Hemoglobin Oxyhemoglobin Sodium Potassium Chloride Carbon Dioxide BUN Creatinine Glucose POC Glucose 133 H 111 H Calcium Phosphorus Magnesium Iron TIBC Ferritin Total Bilirubin AST ALT Lactate Dehydrogenase Total Creatine Kinase Troponin T C-Reactive Protein Albumin Urine WBC (Auto) Urine Creatinine Urine Total Protein Complement C3 Coronavirus (PCR) Hepatitis C Antibody Crossmatch 05/18/21 05/18/21 05/18/21 04:15 04:15 05:01 WBC 16.8 H RBC 3.03 L Hgb 8.9 L Hct 28.7 L MCV 95 H MCHC 31 L RDW 16.4 H Plt Count Lymph % (Auto) [place] % (Auto) Lymph # (Auto) [place] # (Auto) Seg Neutrophils % Seg Neuts % (Manual) Lymphocytes % (Manual) Monocytes % (Manual) Seg Neutrophils # Seg Neutrophils # Man Lymphocytes # (Manual) Monocytes # (Manual) Haptoglobin PT APTT D-Dimer Heparin Anti-Xa Level ABG pH ABG pO2 ABG HCO3 ABG O2 Saturation ABG Base Excess ABG Hemoglobin Oxyhemoglobin Sodium Potassium Chloride Carbon Dioxide BUN 40 H Creatinine 2.1 H Glucose 115 H POC Glucose 113 H Calcium Phosphorus Magnesium Iron TIBC Ferritin Total Bilirubin AST ALT Lactate Dehydrogenase Total Creatine Kinase Troponin T C-Reactive Protein Albumin Urine WBC (Auto) Urine Creatinine Urine Total Protein Complement C3 Coronavirus (PCR) Hepatitis C Antibody Crossmatch 05/18/21 05/18/21 05/19/21 11:18 12:50 05:23 WBC 18.5 H RBC 3.31 L Hgb 9.9 L Hct 31.1 L MCV MCHC RDW 16.9 H Plt Count Lymph % (Auto) [place] % (Auto) Lymph # (Auto) [place] # (Auto) Seg Neutrophils % Seg Neuts % (Manual) Lymphocytes % (Manual) Monocytes % (Manual) Seg Neutrophils # Seg Neutrophils # Man Lymphocytes # (Manual) Monocytes # (Manual) Haptoglobin PT APTT D-Dimer Heparin Anti-Xa Level ABG pH ABG pO2 79.6 L ABG HCO3 28.0 H ABG O2 Saturation ABG Base Excess 3.3 H ABG Hemoglobin 6.2 L Oxyhemoglobin Sodium Potassium Chloride Carbon Dioxide BUN Creatinine Glucose POC Glucose 129 H Calcium Phosphorus Magnesium Iron TIBC Ferritin Total Bilirubin AST ALT Lactate Dehydrogenase Total Creatine Kinase Troponin T C-Reactive Protein Albumin Urine WBC (Auto) Urine Creatinine Urine Total Protein Complement C3 Coronavirus (PCR) Hepatitis C Antibody Crossmatch 05/19/21 05/19/21 05/19/21 05:23 05:23 11:24 WBC RBC Hgb Hct MCV MCHC RDW Plt Count Lymph % (Auto) [place] % (Auto) Lymph # (Auto) [place] # (Auto) Seg Neutrophils % Seg Neuts % (Manual) Lymphocytes % (Manual) Monocytes % (Manual) Seg Neutrophils # Seg Neutrophils # Man Lymphocytes # (Manual) Monocytes # (Manual) Haptoglobin PT APTT D-Dimer Heparin Anti-Xa Level ABG pH ABG pO2 ABG HCO3 ABG O2 Saturation ABG Base Excess ABG Hemoglobin Oxyhemoglobin Sodium Potassium Chloride Carbon Dioxide BUN 35 H 34 H Creatinine 2.0 H 2.1 H Glucose POC Glucose 111 H Calcium Phosphorus Magnesium Iron TIBC Ferritin Total Bilirubin AST ALT Lactate Dehydrogenase Total Creatine Kinase Troponin T C-Reactive Protein Albumin Urine WBC (Auto) Urine Creatinine Urine Total Protein Complement C3 Coronavirus (PCR) Hepatitis C Antibody Crossmatch 05/19/21 05/19/21 05/19/21 16:33 19:36 23:47 WBC RBC Hgb Hct MCV MCHC RDW Plt Count Lymph % (Auto) [place] % (Auto) Lymph # (Auto) [place] # (Auto) Seg Neutrophils % Seg Neuts % (Manual) Lymphocytes % (Manual) Monocytes % (Manual) Seg Neutrophils # Seg Neutrophils # Man Lymphocytes # (Manual) Monocytes # (Manual) Haptoglobin PT APTT 72.5 H* D-Dimer Heparin Anti-Xa Level ABG pH ABG pO2 ABG HCO3 ABG O2 Saturation ABG Base Excess ABG Hemoglobin Oxyhemoglobin Sodium Potassium Chloride Carbon Dioxide BUN Creatinine Glucose POC Glucose 131 H 122 H Calcium Phosphorus Magnesium Iron TIBC Ferritin Total Bilirubin AST ALT Lactate Dehydrogenase Total Creatine Kinase Troponin T C-Reactive Protein Albumin Urine WBC (Auto) Urine Creatinine Urine Total Protein Complement C3 Coronavirus (PCR) Hepatitis C Antibody Crossmatch 05/20/21 05/20/21 05/20/21 05:14 05:14 06:12 WBC 19.7 H RBC 3.19 L Hgb 9.5 L Hct 29.9 L MCV MCHC RDW 17.3 H Plt Count Lymph % (Auto) [place] % (Auto) Lymph # (Auto) [place] # (Auto) Seg Neutrophils % Seg Neuts % (Manual) Lymphocytes % (Manual) Monocytes % (Manual) Seg Neutrophils # Seg Neutrophils # Man Lymphocytes # (Manual) Monocytes # (Manual) Haptoglobin PT APTT D-Dimer Heparin Anti-Xa Level ABG pH ABG pO2 ABG HCO3 ABG O2 Saturation ABG Base Excess ABG Hemoglobin Oxyhemoglobin Sodium Potassium Chloride Carbon Dioxide BUN 31 H Creatinine 2.1 H Glucose 130 H POC Glucose 120 H Calcium Phosphorus Magnesium Iron TIBC Ferritin Total Bilirubin AST ALT Lactate Dehydrogenase Total Creatine Kinase Troponin T C-Reactive Protein Albumin Urine WBC (Auto) Urine Creatinine Urine Total Protein Complement C3 Coronavirus (PCR) Hepatitis C Antibody Crossmatch 05/20/21 05/20/21 05/20/21 11:10 18:12 23:55 WBC RBC Hgb Hct MCV MCHC RDW Plt Count Lymph % (Auto) [place] % (Auto) Lymph # (Auto) [place] # (Auto) Seg Neutrophils % Seg Neuts % (Manual) Lymphocytes % (Manual) Monocytes % (Manual) Seg Neutrophils # Seg Neutrophils # Man Lymphocytes # (Manual) Monocytes # (Manual) Haptoglobin PT APTT D-Dimer Heparin Anti-Xa Level ABG pH ABG pO2 ABG HCO3 ABG O2 Saturation ABG Base Excess ABG Hemoglobin Oxyhemoglobin Sodium Potassium Chloride Carbon Dioxide BUN Creatinine Glucose POC Glucose 152 H 137 H 146 H Calcium Phosphorus Magnesium Iron TIBC Ferritin Total Bilirubin AST ALT Lactate Dehydrogenase Total Creatine Kinase Troponin T C-Reactive Protein Albumin Urine WBC (Auto) Urine Creatinine Urine Total Protein Complement C3 Coronavirus (PCR) Hepatitis C Antibody Crossmatch 05/21/21 05/21/21 05/21/21 03:12 03:12 05:53 WBC 26.2 H RBC 2.58 L Hgb 7.7 L Hct 24.2 L MCV MCHC RDW 17.8 H Plt Count Lymph % (Auto) [place] % (Auto) Lymph # (Auto) [place] # (Auto) Seg Neutrophils % Seg Neuts % (Manual) Lymphocytes % (Manual) Monocytes % (Manual) Seg Neutrophils # Seg Neutrophils # Man Lymphocytes # (Manual) Monocytes # (Manual) Haptoglobin PT APTT D-Dimer Heparin Anti-Xa Level ABG pH ABG pO2 ABG HCO3 ABG O2 Saturation ABG Base Excess ABG Hemoglobin Oxyhemoglobin Sodium 133 L Potassium 5.7 H D Chloride Carbon Dioxide 21 L BUN 49 H Creatinine 2.6 H Glucose 160 H POC Glucose 118 H Calcium Phosphorus Magnesium Iron TIBC Ferritin Total Bilirubin AST ALT Lactate Dehydrogenase Total Creatine Kinase Troponin T C-Reactive Protein Albumin Urine WBC (Auto) Urine Creatinine Urine Total Protein Complement C3 Coronavirus (PCR) Hepatitis C Antibody Crossmatch 05/21/21 05/22/21 05/22/21 18:00 00:13 05:05 WBC RBC Hgb Hct MCV MCHC RDW Plt Count Lymph % (Auto) [place] % (Auto) Lymph # (Auto) [place] # (Auto) Seg Neutrophils % Seg Neuts % (Manual) Lymphocytes % (Manual) Monocytes % (Manual) Seg Neutrophils # Seg Neutrophils # Man Lymphocytes # (Manual) Monocytes # (Manual) Haptoglobin PT APTT D-Dimer Heparin Anti-Xa Level ABG pH 7.500 H ABG pO2 56.6 L ABG HCO3 ABG O2 Saturation ABG Base Excess ABG Hemoglobin 6.7 L Oxyhemoglobin 94.8 L Sodium 136 L Potassium 5.2 H Chloride Carbon Dioxide BUN 59 H Creatinine 2.6 H Glucose 138 H POC Glucose 109 H Calcium Phosphorus Magnesium Iron TIBC Ferritin Total Bilirubin AST ALT Lactate Dehydrogenase Total Creatine Kinase Troponin T C-Reactive Protein Albumin Urine WBC (Auto) Urine Creatinine Urine Total Protein Complement C3 Coronavirus (PCR) Hepatitis C Antibody Crossmatch 05/22/21 05/22/21 05/22/21 06:07 11:49 16:33 WBC RBC Hgb Hct MCV MCHC RDW Plt Count Lymph % (Auto) [place] % (Auto) Lymph # (Auto) [place] # (Auto) Seg Neutrophils % Seg Neuts % (Manual) Lymphocytes % (Manual) Monocytes % (Manual) Seg Neutrophils # Seg Neutrophils # Man Lymphocytes # (Manual) Monocytes # (Manual) Haptoglobin PT APTT D-Dimer Heparin Anti-Xa Level ABG pH ABG pO2 ABG HCO3 ABG O2 Saturation ABG Base Excess ABG Hemoglobin Oxyhemoglobin Sodium Potassium Chloride Carbon Dioxide BUN Creatinine Glucose POC Glucose 110 H 117 H 119 H Calcium Phosphorus Magnesium Iron TIBC Ferritin Total Bilirubin AST ALT Lactate Dehydrogenase Total Creatine Kinase Troponin T C-Reactive Protein Albumin Urine WBC (Auto) Urine Creatinine Urine Total Protein Complement C3 Coronavirus (PCR) Hepatitis C Antibody Crossmatch 05/23/21 05/23/21 05/23/21 04:48 04:48 07:12 WBC 21.1 H RBC 2.03 L Hgb 6.2 L Hct 19.4 L* MCV 96 H MCHC RDW 17.5 H Plt Count Lymph % (Auto) [place] % (Auto) Lymph # (Auto) [place] # (Auto) Seg Neutrophils % Seg Neuts % (Manual) Lymphocytes % (Manual) Monocytes % (Manual) Seg Neutrophils # Seg Neutrophils # Man Lymphocytes # (Manual) Monocytes # (Manual) Haptoglobin PT APTT D-Dimer Heparin Anti-Xa Level ABG pH ABG pO2 ABG HCO3 ABG O2 Saturation ABG Base Excess ABG Hemoglobin Oxyhemoglobin Sodium Potassium Chloride Carbon Dioxide BUN 62 H Creatinine 2.8 H Glucose 110 H POC Glucose Calcium Phosphorus Magnesium Iron TIBC Ferritin Total Bilirubin AST ALT Lactate Dehydrogenase Total Creatine Kinase Troponin T C-Reactive Protein Albumin Urine WBC (Auto) Urine Creatinine Urine Total Protein Complement C3 Coronavirus (PCR) Hepatitis C Antibody Crossmatch See Detail 05/23/21 05/23/21 05/23/21 11:19 14:15 16:12 WBC RBC Hgb Hct MCV MCHC RDW Plt Count Lymph % (Auto) [place] % (Auto) Lymph # (Auto) [place] # (Auto) Seg Neutrophils % Seg Neuts % (Manual) Lymphocytes % (Manual) Monocytes % (Manual) Seg Neutrophils # Seg Neutrophils # Man Lymphocytes # (Manual) Monocytes # (Manual) Haptoglobin PT APTT D-Dimer Heparin Anti-Xa Level ABG pH ABG pO2 294.7 H ABG HCO3 ABG O2 Saturation 99.5 H ABG Base Excess ABG Hemoglobin 6.5 L Oxyhemoglobin Sodium Potassium Chloride Carbon Dioxide BUN Creatinine Glucose POC Glucose 127 H 120 H Calcium Phosphorus Magnesium Iron TIBC Ferritin Total Bilirubin AST ALT Lactate Dehydrogenase Total Creatine Kinase Troponin T C-Reactive Protein Albumin Urine WBC (Auto) Urine Creatinine Urine Total Protein Complement C3 Coronavirus (PCR) Hepatitis C Antibody Crossmatch 05/23/21 05/23/21 05/23/21 16:30 16:30 18:54 WBC RBC Hgb Hct MCV MCHC RDW Plt Count Lymph % (Auto) [place] % (Auto) Lymph # (Auto) [place] # (Auto) Seg Neutrophils % Seg Neuts % (Manual) Lymphocytes % (Manual) Monocytes % (Manual) Seg Neutrophils # Seg Neutrophils # Man Lymphocytes # (Manual) Monocytes # (Manual) Haptoglobin 254 H PT APTT D-Dimer Heparin Anti-Xa Level ABG pH ABG pO2 ABG HCO3 ABG O2 Saturation ABG Base Excess ABG Hemoglobin Oxyhemoglobin Sodium Potassium Chloride Carbon Dioxide BUN Creatinine Glucose POC Glucose Calcium Phosphorus Magnesium Iron TIBC Ferritin Total Bilirubin AST ALT Lactate Dehydrogenase Total Creatine Kinase Troponin T C-Reactive Protein Albumin Urine WBC (Auto) 12.0 H Urine Creatinine 100.1 H Urine Total Protein Complement C3 Coronavirus (PCR) Hepatitis C Antibody Crossmatch 05/23/21 05/23/21 05/24/21 18:54 Unknown 00:11 WBC 21.7 H RBC 2.40 L Hgb 7.1 L Hct 22.9 L MCV 96 H MCHC 31 L RDW 16.8 H Plt Count Lymph % (Auto) [place] % (Auto) Lymph # (Auto) [place] # (Auto) Seg Neutrophils % Seg Neuts % (Manual) Lymphocytes % (Manual) Monocytes % (Manual) Seg Neutrophils # Seg Neutrophils # Man Lymphocytes # (Manual) Monocytes # (Manual) Haptoglobin PT APTT D-Dimer Heparin Anti-Xa Level ABG pH ABG pO2 ABG HCO3 ABG O2 Saturation ABG Base Excess ABG Hemoglobin Oxyhemoglobin Sodium Potassium Chloride Carbon Dioxide BUN Creatinine Glucose POC Glucose 110 H Calcium Phosphorus Magnesium Iron 10 L TIBC 151 L Ferritin Total Bilirubin AST ALT Lactate Dehydrogenase 311 H Total Creatine Kinase Troponin T C-Reactive Protein Albumin Urine WBC (Auto) Urine Creatinine Urine Total Protein Complement C3 Coronavirus (PCR) Hepatitis C Antibody Crossmatch 05/24/21 05/24/21 05/24/21 04:11 04:11 05:10 WBC 16.7 H RBC 2.19 L Hgb 6.4 L Hct 20.5 L MCV MCHC 31 L RDW 17.0 H Plt Count Lymph % (Auto) [place] % (Auto) Lymph # (Auto) [place] # (Auto) Seg Neutrophils % Seg Neuts % (Manual) Lymphocytes % (Manual) Monocytes % (Manual) Seg Neutrophils # Seg Neutrophils # Man Lymphocytes # (Manual) Monocytes # (Manual) Haptoglobin PT APTT D-Dimer Heparin Anti-Xa Level ABG pH ABG pO2 ABG HCO3 ABG O2 Saturation ABG Base Excess ABG Hemoglobin Oxyhemoglobin Sodium Potassium Chloride Carbon Dioxide BUN 78 H Creatinine 2.8 H Glucose 119 H POC Glucose 108 H Calcium Phosphorus 5.30 H Magnesium 2.60 H Iron TIBC Ferritin Total Bilirubin AST 152 H ALT 125 H Lactate Dehydrogenase Total Creatine Kinase Troponin T C-Reactive Protein Albumin 2.5 L Urine WBC (Auto) Urine Creatinine Urine Total Protein Complement C3 Coronavirus (PCR) Hepatitis C Antibody Crossmatch 05/24/21 05/25/21 05/25/21 09:55 04:25 04:25 WBC 13.8 H RBC 2.78 L Hgb 8.3 L Hct 25.6 L MCV MCHC RDW 16.2 H Plt Count Lymph % (Auto) [place] % (Auto) Lymph # (Auto) [place] # (Auto) Seg Neutrophils % Seg Neuts % (Manual) Lymphocytes % (Manual) Monocytes % (Manual) Seg Neutrophils # Seg Neutrophils # Man Lymphocytes # (Manual) Monocytes # (Manual) Haptoglobin PT APTT D-Dimer Heparin Anti-Xa Level ABG pH ABG pO2 141.9 H ABG HCO3 ABG O2 Saturation ABG Base Excess ABG Hemoglobin 6.5 L Oxyhemoglobin Sodium Potassium Chloride Carbon Dioxide BUN 76 H Creatinine 2.6 H Glucose 110 H POC Glucose Calcium 8.1 L Phosphorus Magnesium Iron TIBC Ferritin Total Bilirubin AST ALT Lactate Dehydrogenase Total Creatine Kinase Troponin T C-Reactive Protein Albumin Urine WBC (Auto) Urine Creatinine Urine Total Protein Complement C3 Coronavirus (PCR) Hepatitis C Antibody Crossmatch 05/25/21 05/25/21 05/25/21 05:19 09:40 17:11 WBC RBC Hgb Hct MCV MCHC RDW Plt Count Lymph % (Auto) [place] % (Auto) Lymph # (Auto) [place] # (Auto) Seg Neutrophils % Seg Neuts % (Manual) Lymphocytes % (Manual) Monocytes % (Manual) Seg Neutrophils # Seg Neutrophils # Man Lymphocytes # (Manual) Monocytes # (Manual) Haptoglobin PT APTT D-Dimer Heparin Anti-Xa Level ABG pH ABG pO2 150.9 H ABG HCO3 ABG O2 Saturation ABG Base Excess ABG Hemoglobin 7.0 L Oxyhemoglobin Sodium Potassium Chloride Carbon Dioxide BUN Creatinine Glucose POC Glucose 123 H 108 H Calcium Phosphorus Magnesium Iron TIBC Ferritin Total Bilirubin AST ALT Lactate Dehydrogenase Total Creatine Kinase Troponin T C-Reactive Protein Albumin Urine WBC (Auto) Urine Creatinine Urine Total Protein Complement C3 Coronavirus (PCR) Hepatitis C Antibody Crossmatch 05/25/21 05/26/21 05/26/21 23:37 05:02 07:09 WBC RBC Hgb Hct MCV MCHC RDW Plt Count Lymph % (Auto) [place] % (Auto) Lymph # (Auto) [place] # (Auto) Seg Neutrophils % Seg Neuts % (Manual) Lymphocytes % (Manual) Monocytes % (Manual) Seg Neutrophils # Seg Neutrophils # Man Lymphocytes # (Manual) Monocytes # (Manual) Haptoglobin PT APTT D-Dimer Heparin Anti-Xa Level ABG pH ABG pO2 ABG HCO3 ABG O2 Saturation ABG Base Excess ABG Hemoglobin Oxyhemoglobin Sodium Potassium Chloride Carbon Dioxide BUN 62 H Creatinine 2.1 H Glucose 112 H POC Glucose 117 H 112 H Calcium 8.2 L Phosphorus Magnesium Iron TIBC Ferritin Total Bilirubin AST ALT Lactate Dehydrogenase Total Creatine Kinase Troponin T C-Reactive Protein Albumin Urine WBC (Auto) Urine Creatinine Urine Total Protein Complement C3 Coronavirus (PCR) Hepatitis C Antibody Crossmatch 05/26/21 05/26/21 05/26/21 07:09 09:10 09:50 WBC 15.8 H RBC 3.21 L Hgb 9.2 L Hct 29.6 L MCV MCHC 31 L RDW 16.6 H Plt Count Lymph % (Auto) [place] % (Auto) Lymph # (Auto) [place] # (Auto) Seg Neutrophils % Seg Neuts % (Manual) Lymphocytes % (Manual) Monocytes % (Manual) Seg Neutrophils # Seg Neutrophils # Man Lymphocytes # (Manual) Monocytes # (Manual) Haptoglobin PT APTT D-Dimer Heparin Anti-Xa Level ABG pH ABG pO2 135.5 H ABG HCO3 ABG O2 Saturation ABG Base Excess ABG Hemoglobin 9.6 L Oxyhemoglobin Sodium Potassium Chloride Carbon Dioxide BUN Creatinine Glucose POC Glucose Calcium Phosphorus Magnesium Iron TIBC Ferritin Total Bilirubin AST ALT Lactate Dehydrogenase Total Creatine Kinase Troponin T C-Reactive Protein Albumin Urine WBC (Auto) 38.0 H Urine Creatinine Urine Total Protein Complement C3 Coronavirus (PCR) Hepatitis C Antibody Crossmatch 05/26/21 05/26/21 05/27/21 11:20 18:24 00:24 WBC RBC Hgb Hct MCV MCHC RDW Plt Count Lymph % (Auto) [place] % (Auto) Lymph # (Auto) [place] # (Auto) Seg Neutrophils % Seg Neuts % (Manual) Lymphocytes % (Manual) Monocytes % (Manual) Seg Neutrophils # Seg Neutrophils # Man Lymphocytes # (Manual) Monocytes # (Manual) Haptoglobin PT APTT D-Dimer Heparin Anti-Xa Level ABG pH ABG pO2 ABG HCO3 ABG O2 Saturation ABG Base Excess ABG Hemoglobin Oxyhemoglobin Sodium Potassium Chloride Carbon Dioxide BUN Creatinine Glucose POC Glucose 109 H 116 H 115 H Calcium Phosphorus Magnesium Iron TIBC Ferritin Total Bilirubin AST ALT Lactate Dehydrogenase Total Creatine Kinase Troponin T C-Reactive Protein Albumin Urine WBC (Auto) Urine Creatinine Urine Total Protein Complement C3 Coronavirus (PCR) Hepatitis C Antibody Crossmatch 05/27/21 05/27/21 05/27/21 05:12 07:47 07:47 WBC 15.5 H RBC 2.86 L Hgb 8.8 L Hct 26.1 L MCV MCHC RDW 16.1 H Plt Count Lymph % (Auto) [place] % (Auto) Lymph # (Auto) [place] # (Auto) Seg Neutrophils % Seg Neuts % (Manual) Lymphocytes % (Manual) Monocytes % (Manual) Seg Neutrophils # Seg Neutrophils # Man Lymphocytes # (Manual) Monocytes # (Manual) Haptoglobin PT APTT D-Dimer Heparin Anti-Xa Level ABG pH ABG pO2 ABG HCO3 ABG O2 Saturation ABG Base Excess ABG Hemoglobin Oxyhemoglobin Sodium Potassium Chloride 107.3 H Carbon Dioxide BUN 56 H Creatinine 1.8 H Glucose 108 H POC Glucose 108 H Calcium 8.1 L Phosphorus Magnesium Iron TIBC Ferritin Total Bilirubin AST ALT Lactate Dehydrogenase Total Creatine Kinase Troponin T C-Reactive Protein Albumin Urine WBC (Auto) Urine Creatinine Urine Total Protein Complement C3 Coronavirus (PCR) Hepatitis C Antibody Crossmatch 05/27/21 05/27/21 05/28/21 09:20 18:01 00:09 WBC RBC Hgb Hct MCV MCHC RDW Plt Count Lymph % (Auto) [place] % (Auto) Lymph # (Auto) [place] # (Auto) Seg Neutrophils % Seg Neuts % (Manual) Lymphocytes % (Manual) Monocytes % (Manual) Seg Neutrophils # Seg Neutrophils # Man Lymphocytes # (Manual) Monocytes # (Manual) Haptoglobin PT APTT D-Dimer Heparin Anti-Xa Level ABG pH ABG pO2 115.2 H ABG HCO3 ABG O2 Saturation ABG Base Excess ABG Hemoglobin 9.2 L Oxyhemoglobin Sodium Potassium Chloride Carbon Dioxide BUN Creatinine Glucose POC Glucose 109 H 114 H Calcium Phosphorus Magnesium Iron TIBC Ferritin Total Bilirubin AST ALT Lactate Dehydrogenase Total Creatine Kinase Troponin T C-Reactive Protein Albumin Urine WBC (Auto) Urine Creatinine Urine Total Protein Complement C3 Coronavirus (PCR) Hepatitis C Antibody Crossmatch 05/28/21 05/28/21 05/28/21 04:04 04:04 04:04 WBC 14.1 H RBC 2.87 L Hgb 8.6 L Hct 26.5 L MCV MCHC RDW 15.9 H Plt Count Lymph % (Auto) [place] % (Auto) Lymph # (Auto) [place] # (Auto) Seg Neutrophils % Seg Neuts % (Manual) 93.0 H Lymphocytes % (Manual) 2.0 L Monocytes % (Manual) Seg Neutrophils # Seg Neutrophils # Man 13.1 H Lymphocytes # (Manual) 0.3 L Monocytes # (Manual) Haptoglobin PT APTT D-Dimer Heparin Anti-Xa Level ABG pH ABG pO2 ABG HCO3 ABG O2 Saturation ABG Base Excess ABG Hemoglobin Oxyhemoglobin Sodium Potassium Chloride Carbon Dioxide BUN 54 H Creatinine 1.7 H Glucose 116 H POC Glucose Calcium 7.7 L Phosphorus Magnesium Iron TIBC Ferritin Total Bilirubin AST ALT Lactate Dehydrogenase Total Creatine Kinase Troponin T C-Reactive Protein 13.20 H Albumin Urine WBC (Auto) Urine Creatinine Urine Total Protein Complement C3 Coronavirus (PCR) Hepatitis C Antibody Crossmatch 05/28/21 05/28/21 05/28/21 05:32 12:06 17:30 WBC RBC Hgb Hct MCV MCHC RDW Plt Count Lymph % (Auto) [place] % (Auto) Lymph # (Auto) [place] # (Auto) Seg Neutrophils % Seg Neuts % (Manual) Lymphocytes % (Manual) Monocytes % (Manual) Seg Neutrophils # Seg Neutrophils # Man Lymphocytes # (Manual) Monocytes # (Manual) Haptoglobin PT APTT D-Dimer Heparin Anti-Xa Level ABG pH ABG pO2 ABG HCO3 ABG O2 Saturation ABG Base Excess ABG Hemoglobin Oxyhemoglobin Sodium Potassium Chloride Carbon Dioxide BUN Creatinine Glucose POC Glucose 119 H 112 H 114 H Calcium Phosphorus Magnesium Iron TIBC Ferritin Total Bilirubin AST ALT Lactate Dehydrogenase Total Creatine Kinase Troponin T C-Reactive Protein Albumin Urine WBC (Auto) Urine Creatinine Urine Total Protein Complement C3 Coronavirus (PCR) Hepatitis C Antibody Crossmatch 05/28/21 05/29/21 05/29/21 23:46 05:16 11:16 WBC 12.2 H RBC 2.94 L Hgb 8.7 L Hct 27.2 L MCV MCHC RDW 15.8 H Plt Count Lymph % (Auto) [place] % (Auto) Lymph # (Auto) [place] # (Auto) Seg Neutrophils % Seg Neuts % (Manual) Lymphocytes % (Manual) Monocytes % (Manual) Seg Neutrophils # Seg Neutrophils # Man Lymphocytes # (Manual) Monocytes # (Manual) Haptoglobin PT APTT D-Dimer Heparin Anti-Xa Level ABG pH ABG pO2 ABG HCO3 ABG O2 Saturation ABG Base Excess ABG Hemoglobin Oxyhemoglobin Sodium Potassium Chloride Carbon Dioxide BUN Creatinine Glucose POC Glucose 108 H 113 H Calcium Phosphorus Magnesium Iron TIBC Ferritin Total Bilirubin AST ALT Lactate Dehydrogenase Total Creatine Kinase Troponin T C-Reactive Protein Albumin Urine WBC (Auto) Urine Creatinine Urine Total Protein Complement C3 Coronavirus (PCR) Hepatitis C Antibody Crossmatch 05/29/21 05/29/21 05/29/21 11:16 17:25 23:26 WBC RBC Hgb Hct MCV MCHC RDW Plt Count Lymph % (Auto) [place] % (Auto) Lymph # (Auto) [place] # (Auto) Seg Neutrophils % Seg Neuts % (Manual) Lymphocytes % (Manual) Monocytes % (Manual) Seg Neutrophils # Seg Neutrophils # Man Lymphocytes # (Manual) Monocytes # (Manual) Haptoglobin PT APTT D-Dimer Heparin Anti-Xa Level ABG pH ABG pO2 ABG HCO3 ABG O2 Saturation ABG Base Excess ABG Hemoglobin Oxyhemoglobin Sodium Potassium Chloride Carbon Dioxide BUN 50 H Creatinine 1.5 H Glucose 117 H POC Glucose 115 H 110 H Calcium 8.0 L Phosphorus Magnesium Iron TIBC Ferritin Total Bilirubin AST ALT Lactate Dehydrogenase Total Creatine Kinase Troponin T C-Reactive Protein Albumin Urine WBC (Auto) Urine Creatinine Urine Total Protein Complement C3 Coronavirus (PCR) Hepatitis C Antibody Crossmatch 05/30/21 05/30/21 05/30/21 05:07 05:11 11:30 WBC RBC Hgb Hct MCV MCHC RDW Plt Count Lymph % (Auto) [place] % (Auto) Lymph # (Auto) [place] # (Auto) Seg Neutrophils % Seg Neuts % (Manual) Lymphocytes % (Manual) Monocytes % (Manual) Seg Neutrophils # Seg Neutrophils # Man Lymphocytes # (Manual) Monocytes # (Manual) Haptoglobin PT APTT D-Dimer Heparin Anti-Xa Level ABG pH ABG pO2 ABG HCO3 ABG O2 Saturation ABG Base Excess ABG Hemoglobin Oxyhemoglobin Sodium Potassium Chloride Carbon Dioxide BUN 55 H Creatinine 1.5 H Glucose 129 H POC Glucose 113 H 110 H Calcium 8.2 L Phosphorus Magnesium Iron TIBC Ferritin Total Bilirubin AST ALT Lactate Dehydrogenase Total Creatine Kinase Troponin T C-Reactive Protein Albumin Urine WBC (Auto) Urine Creatinine Urine Total Protein Complement C3 Coronavirus (PCR) Hepatitis C Antibody Crossmatch 05/30/21 05/31/21 05/31/21 17:53 04:11 04:11 WBC RBC 3.12 L Hgb 9.3 L Hct 28.8 L MCV MCHC RDW 16.1 H Plt Count Lymph % (Auto) [place] % (Auto) Lymph # (Auto) [place] # (Auto) Seg Neutrophils % Seg Neuts % (Manual) Lymphocytes % (Manual) Monocytes % (Manual) Seg Neutrophils # Seg Neutrophils # Man Lymphocytes # (Manual) Monocytes # (Manual) Haptoglobin PT APTT D-Dimer Heparin Anti-Xa Level ABG pH ABG pO2 ABG HCO3 ABG O2 Saturation ABG Base Excess ABG Hemoglobin Oxyhemoglobin Sodium Potassium Chloride Carbon Dioxide BUN 50 H Creatinine 1.4 H Glucose 117 H POC Glucose 107 H Calcium 8.0 L Phosphorus Magnesium Iron TIBC Ferritin Total Bilirubin AST ALT Lactate Dehydrogenase Total Creatine Kinase Troponin T C-Reactive Protein Albumin Urine WBC (Auto) Urine Creatinine Urine Total Protein Complement C3 Coronavirus (PCR) Hepatitis C Antibody Crossmatch 05/31/21 05/31/21 06/01/21 11:36 18:27 04:56 WBC RBC 3.14 L Hgb 9.1 L Hct 29.0 L MCV MCHC RDW 16.3 H Plt Count Lymph % (Auto) [place] % (Auto) Lymph # (Auto) [place] # (Auto) Seg Neutrophils % Seg Neuts % (Manual) Lymphocytes % (Manual) Monocytes % (Manual) Seg Neutrophils # Seg Neutrophils # Man Lymphocytes # (Manual) Monocytes # (Manual) Haptoglobin PT APTT D-Dimer Heparin Anti-Xa Level ABG pH ABG pO2 ABG HCO3 ABG O2 Saturation ABG Base Excess ABG Hemoglobin Oxyhemoglobin Sodium Potassium Chloride Carbon Dioxide BUN Creatinine Glucose POC Glucose 109 H 111 H Calcium Phosphorus Magnesium Iron TIBC Ferritin Total Bilirubin AST ALT Lactate Dehydrogenase Total Creatine Kinase Troponin T C-Reactive Protein Albumin Urine WBC (Auto) Urine Creatinine Urine Total Protein Complement C3 Coronavirus (PCR) Hepatitis C Antibody Crossmatch 06/01/21 06/01/21 06/01/21 04:56 06:10 11:04 WBC RBC Hgb Hct MCV MCHC RDW Plt Count Lymph % (Auto) [place] % (Auto) Lymph # (Auto) [place] # (Auto) Seg Neutrophils % Seg Neuts % (Manual) Lymphocytes % (Manual) Monocytes % (Manual) Seg Neutrophils # Seg Neutrophils # Man Lymphocytes # (Manual) Monocytes # (Manual) Haptoglobin PT APTT D-Dimer Heparin Anti-Xa Level ABG pH ABG pO2 ABG HCO3 ABG O2 Saturation ABG Base Excess ABG Hemoglobin Oxyhemoglobin Sodium Potassium Chloride 108.4 H Carbon Dioxide BUN 49 H Creatinine Glucose 113 H POC Glucose 107 H 122 H Calcium 8.0 L Phosphorus Magnesium Iron TIBC Ferritin Total Bilirubin AST ALT Lactate Dehydrogenase Total Creatine Kinase Troponin T C-Reactive Protein Albumin Urine WBC (Auto) Urine Creatinine Urine Total Protein Complement C3 Coronavirus (PCR) Hepatitis C Antibody Crossmatch 06/01/21 06/01/21 06/02/21 15:50 23:19 04:06 WBC RBC Hgb Hct MCV MCHC RDW Plt Count Lymph % (Auto) [place] % (Auto) Lymph # (Auto) [place] # (Auto) Seg Neutrophils % Seg Neuts % (Manual) Lymphocytes % (Manual) Monocytes % (Manual) Seg Neutrophils # Seg Neutrophils # Man Lymphocytes # (Manual) Monocytes # (Manual) Haptoglobin PT APTT D-Dimer Heparin Anti-Xa Level ABG pH ABG pO2 ABG HCO3 ABG O2 Saturation ABG Base Excess ABG Hemoglobin Oxyhemoglobin Sodium Potassium Chloride Carbon Dioxide BUN 46 H Creatinine Glucose 121 H POC Glucose 111 H 117 H Calcium Phosphorus Magnesium Iron TIBC Ferritin Total Bilirubin AST ALT Lactate Dehydrogenase Total Creatine Kinase Troponin T C-Reactive Protein Albumin Urine WBC (Auto) Urine Creatinine Urine Total Protein Complement C3 Coronavirus (PCR) Hepatitis C Antibody Crossmatch 06/02/21 06/02/21 06/02/21 05:08 11:06 15:40 WBC RBC Hgb Hct MCV MCHC RDW Plt Count Lymph % (Auto) [place] % (Auto) Lymph # (Auto) [place] # (Auto) Seg Neutrophils % Seg Neuts % (Manual) Lymphocytes % (Manual) Monocytes % (Manual) Seg Neutrophils # Seg Neutrophils # Man Lymphocytes # (Manual) Monocytes # (Manual) Haptoglobin PT APTT D-Dimer Heparin Anti-Xa Level ABG pH ABG pO2 ABG HCO3 ABG O2 Saturation ABG Base Excess ABG Hemoglobin Oxyhemoglobin Sodium Potassium Chloride Carbon Dioxide BUN Creatinine Glucose POC Glucose 120 H 119 H 125 H Calcium Phosphorus Magnesium Iron TIBC Ferritin Total Bilirubin AST ALT Lactate Dehydrogenase Total Creatine Kinase Troponin T C-Reactive Protein Albumin Urine WBC (Auto) Urine Creatinine Urine Total Protein Complement C3 Coronavirus (PCR) Hepatitis C Antibody Crossmatch 06/02/21 06/03/21 06/03/21 23:27 04:15 04:15 WBC RBC 3.40 L Hgb 10.0 L Hct 31.3 L MCV MCHC RDW 16.0 H Plt Count 463 H Lymph % (Auto) [place] % (Auto) Lymph # (Auto) [place] # (Auto) Seg Neutrophils % Seg Neuts % (Manual) Lymphocytes % (Manual) Monocytes % (Manual) Seg Neutrophils # Seg Neutrophils # Man Lymphocytes # (Manual) Monocytes # (Manual) Haptoglobin PT APTT D-Dimer Heparin Anti-Xa Level ABG pH ABG pO2 ABG HCO3 ABG O2 Saturation ABG Base Excess ABG Hemoglobin Oxyhemoglobin Sodium Potassium Chloride Carbon Dioxide BUN 44 H Creatinine Glucose 115 H POC Glucose 115 H Calcium Phosphorus Magnesium Iron TIBC Ferritin Total Bilirubin AST ALT Lactate Dehydrogenase Total Creatine Kinase Troponin T C-Reactive Protein Albumin Urine WBC (Auto) Urine Creatinine Urine Total Protein Complement C3 Coronavirus (PCR) Hepatitis C Antibody Crossmatch 06/03/21 06/03/21 06/03/21 10:52 16:32 23:37 WBC RBC Hgb Hct MCV MCHC RDW Plt Count Lymph % (Auto) [place] % (Auto) Lymph # (Auto) [place] # (Auto) Seg Neutrophils % Seg Neuts % (Manual) Lymphocytes % (Manual) Monocytes % (Manual) Seg Neutrophils # Seg Neutrophils # Man Lymphocytes # (Manual) Monocytes # (Manual) Haptoglobin PT APTT D-Dimer Heparin Anti-Xa Level ABG pH ABG pO2 ABG HCO3 ABG O2 Saturation ABG Base Excess ABG Hemoglobin Oxyhemoglobin Sodium Potassium Chloride Carbon Dioxide BUN Creatinine Glucose POC Glucose 113 H 106 H 114 H Calcium Phosphorus Magnesium Iron TIBC Ferritin Total Bilirubin AST ALT Lactate Dehydrogenase Total Creatine Kinase Troponin T C-Reactive Protein Albumin Urine WBC (Auto) Urine Creatinine Urine Total Protein Complement C3 Coronavirus (PCR) Hepatitis C Antibody Crossmatch 06/04/21 05:31 WBC RBC Hgb Hct MCV MCHC RDW Plt Count Lymph % (Auto) [place] % (Auto) Lymph # (Auto) [place] # (Auto) Seg Neutrophils % Seg Neuts % (Manual) Lymphocytes % (Manual) Monocytes % (Manual) Seg Neutrophils # Seg Neutrophils # Man Lymphocytes # (Manual) Monocytes # (Manual) Haptoglobin PT APTT D-Dimer Heparin Anti-Xa Level ABG pH ABG pO2 ABG HCO3 ABG O2 Saturation ABG Base Excess ABG Hemoglobin Oxyhemoglobin Sodium Potassium Chloride Carbon Dioxide BUN Creatinine Glucose POC Glucose 121 H Calcium Phosphorus Magnesium Iron TIBC Ferritin Total Bilirubin AST ALT Lactate Dehydrogenase Total Creatine Kinase Troponin T C-Reactive Protein Albumin Urine WBC (Auto) Urine Creatinine Urine Total Protein Complement C3 Coronavirus (PCR) Hepatitis C Antibody Crossmatch Allied health notes reviewed: RT
[2021-06-04] MEDS: fentaNYL DRIP Premix 2,000 MCG/100 ML BAG IV SCH (17:17)
[2021-06-04] MEDS: POLYETHYLENE GLYCOL 3350 17 GM POWDER PO SCH (21:39)
[2021-06-05 05:04] LABS: Hematocrit 29.4 % (35.5-45.6); Hemoglobin 9.9 gm/dl (11.8-15.2); Mean Corpuscular HGB Conc 34 % (32-34); Mean Corpuscular Volume 91 fl (84-94); Platelet Count 501 K/mm3 (140-440); Red Blood Count 3.23 M/mm3 (3.65-5.03); Red Cell Distribution Width 16.3 % (13.2-15.2)
[2021-06-05 05:17] LABS: BUN/Creatinine Ratio 37; Blood Urea Nitrogen 41 mg/dL (9-20); Calcium 8.5 mg/dL (8.4-10.2); Hemolysis Index 6
[2021-06-05] MEDS: hydrALAZINE 25 MG TAB PO SCH ×3 (06:15→22:22)
[2021-06-05] MEDS: METOPROLOL TARTRATE 25 MG TAB FEEDTUBE SCH ×3 (08:45→22:23)
[2021-06-05] MEDS: LANSOPRAZOLE 30 MG SOLUTAB FEEDTUBE SCH ×2 (10:38→22:25)
[2021-06-05] MEDS: SENNOSIDES/DOCUSATE SODIUM 8.6/50 MG TAB FEEDTUBE SCH ×2 (10:38→22:22)
[2021-06-05] MEDS: HEPARIN 5,000 UNIT/1 ML VIAL SUB-Q SCH ×2 (10:38→22:23)
--- NOTE | 2021-06-05 13:00 | Progress Note ---
Assessment and Plan Acute hypoxic resp failure on MVS COVID positive NSTEMI Acute kidney injury Cardiomyopathy EF 35-40% History of hepatitis C Elevated D-dimer. Low probability for PE seen on VQ scan Tobacco abuse Polysubstance abusepatient with positive methamphetamines and has a history of cocaine use Anemia Failed extubation x3 now awaiting trach placement Continue with daily SBTs as tolerated The primary service is in discussions with his family re goals of care and possible tracheostomy placement Per hospital medicine- family are leaning towards hospice Patient's Merino can remain in place - VAP bundle addressed, aspiration precautions - titrate supplemental oxygen to keep SpO2 88-90% - Bronchodilators with pulmonary hygiene per RT - continue accuchecks with glycemic control per SSI (While critically ill target blood glucose of 140-180 mg/dL; avoid hypoglycemia) - avoid nephrotoxins, renally dose all medications - avoid benzodiazepines, reduce the possibility of delirium - prn analgesia per pain score - Maintenance of sleep-wake cycle, avoid delirium - Stress ulcer prophylaxis -Therapeutic anticoagulation- heparin infusion - mobility, off loading and frequent turning per facility protocol for pressure ulcer prevention - Monitor hemodynamics closely -Supportive transfusions as clinically indicated to keep HgB >7g/dL - continue other care per attending / other consultants CONDITION: CRITICAL PROGNOSIS: GUARDED CODE STATUS: FULL CODE The high probability of a clinically significant, sudden or life-threatening deterioration of the [respiratory, cardiovascular & neurologic ] system(s) required my full and direct attention, intervention and personal management. The aggregate critical care time was [33] minutes without overlap. Time includes spent on; [x] Data Review and interpretation [x] Patient assessment and monitoring of vital signs [x] Documentation [x] Medication orders and management Subjective Date of service: 06/05/21 Principal diagnosis: AHRF; COVID-19 infection; NSTEMI; YE; HFrEF (35-40%); Polysubstance abuse Interval history: Follow up for acute hypoxemic resp failure on MVS, COVID infection;YE; Hyp ertension Seen and examined. Vitals, labs, medications, chart and imaging reviewed. Discussed with respiratory and nursing care staff. He was agitated this morning Fentanyl at 2mcg, Has Merino catheter for urinary retention MVS: 16/450/8/25% Daily SBT as tolerated Family has been located and are in discussions with hospital medicine service re goals of care Objective Vital Signs - 12hr 06/05/21 06/05/21 06/05/21 01:00 02:00 03:00 Temperature Pulse Rate 79 84 85 Pulse Rate [ From Monitor] Respiratory 21 27 H 27 H Rate Blood Pressure 121/85 133/94 130/92 O2 Sat by Pulse Oximetry 06/05/21 06/05/21 06/05/21 03:43 04:00 05:00 Temperature 100.0 F H Pulse Rate 84 80 Pulse Rate [ 83 From Monitor] Respiratory 22 16 Rate Blood Pressure 127/95 114/80 O2 Sat by Pulse 98 99 Oximetry 06/05/21 06/05/21 06/05/21 05:32 06:00 06:15 Temperature Pulse Rate 84 79 85 Pulse Rate [ From Monitor] Respiratory 16 Rate Blood Pressure 127/95 135/92 135/92 O2 Sat by Pulse 99 99 Oximetry 06/05/21 06/05/21 06/05/21 07:00 07:20 08:00 Temperature 98.9 F Pulse Rate 85 88 Pulse Rate [ 88 From Monitor] Respiratory 18 18 Rate Blood Pressure 133/93 143/102 O2 Sat by Pulse 98 Oximetry 06/05/21 06/05/21 06/05/21 08:45 09:00 10:00 Temperature Pulse Rate 90 91 H 68 Pulse Rate [ From Monitor] Respiratory 35 H 13 Rate Blood Pressure 144/104 144/104 125/89 O2 Sat by Pulse 97 98 Oximetry 06/05/21 06/05/21 11:20 11:22 Temperature 98.9 F Pulse Rate 65 Pulse Rate [ From Monitor] Respiratory 15 Rate Blood Pressure 118/83 O2 Sat by Pulse 99 Oximetry Constitutional: appears uncomfortable, other (middle aged male with mildly increased respiratory effort at rest) Eyes: non-icteric ENT: oropharynx moist, other (ETT 24 cm ELIZABET) Neck: supple, no lymphadenopathy, no JVD Effort: mildly labored Ascultation: Bilateral: clear, diminished breath sounds, rhonchi Percussion: Bilateral: not dull Cardiovascular: regular rate and rhythm, other (S1,S2) Gastrointestinal: normoactive bowel sounds, soft, non-tender, non-distended Integumentary: normal Extremities: no cyanosis, no edema, pulses normal Neurologic: non-focal exam (grossly), pupils equal and round, unable to assess (sedated) Psychiatric: other CBC and BMP: 06/05/21 04:24 06/05/21 04:24 ABG, PT/INR, D-dimer: ABG ABG pH 7.443 pH Units (7.350-7.450) 05/27/21 09:20 ABG pCO2 38.8 mm Hg 05/27/21 09:20 ABG pO2 115.2 mm Hg (80.0-90.0) H 05/27/21 09:20 ABG O2 Saturation 98.3 % (95.0-99.0) 05/27/21 09:20 PT/INR, D-dimer PT 14.9 Sec. (12.2-14.9) 05/25/21 04:25 INR 1.05 (0.87-1.13) 05/25/21 04:25 D-Dimer 2730.61 ng/mlDDU (0-234) H 05/12/21 07:19 Abnormal lab findings: Abnormal Labs 05/04/21 05/04/21 05/04/21 07:25 07:25 07:25 WBC 12.9 H RBC 3.04 L Hgb 9.5 L Hct 28.4 L MCV MCHC RDW 15.4 H Plt Count Lymph % (Auto) 11.4 L [place] % (Auto) 10.1 H Lymph # (Auto) [place] # (Auto) 1.3 H Seg Neutrophils % 78.0 H Seg Neuts % (Manual) Lymphocytes % (Manual) Monocytes % (Manual) Seg Neutrophils # 10.0 H Seg Neutrophils # Man Lymphocytes # (Manual) Monocytes # (Manual) Haptoglobin PT 15.1 H APTT D-Dimer Heparin Anti-Xa Level ABG pH ABG pO2 ABG HCO3 ABG O2 Saturation ABG Base Excess ABG Hemoglobin Oxyhemoglobin Sodium 135 L Potassium Chloride Carbon Dioxide BUN 65 H Creatinine 3.4 H Glucose 118 H POC Glucose Calcium Phosphorus Magnesium Iron TIBC Ferritin Total Bilirubin 1.50 H AST 519 H ALT 475 H Lactate Dehydrogenase Total Creatine Kinase Troponin T 1.300 H* C-Reactive Protein Albumin Urine WBC (Auto) Urine Creatinine Urine Total Protein Complement C3 Coronavirus (PCR) Hepatitis C Antibody Crossmatch 05/04/21 05/04/21 05/04/21 07:25 08:42 08:42 WBC RBC Hgb Hct MCV MCHC RDW Plt Count Lymph % (Auto) [place] % (Auto) Lymph # (Auto) [place] # (Auto) Seg Neutrophils % Seg Neuts % (Manual) Lymphocytes % (Manual) Monocytes % (Manual) Seg Neutrophils # Seg Neutrophils # Man Lymphocytes # (Manual) Monocytes # (Manual) Haptoglobin PT APTT D-Dimer 579.49 H Heparin Anti-Xa Level ABG pH ABG pO2 ABG HCO3 ABG O2 Saturation ABG Base Excess ABG Hemoglobin Oxyhemoglobin Sodium Potassium Chloride Carbon Dioxide BUN Creatinine Glucose POC Glucose Calcium Phosphorus Magnesium Iron TIBC Ferritin Total Bilirubin AST ALT Lactate Dehydrogenase Total Creatine Kinase 406 H Troponin T 1.230 H* C-Reactive Protein Albumin Urine WBC (Auto) Urine Creatinine Urine Total Protein Complement C3 Coronavirus (PCR) Hepatitis C Antibody Crossmatch 05/04/21 05/04/21 05/04/21 10:13 13:34 18:14 WBC RBC Hgb 8.8 L Hct 26.6 L MCV MCHC RDW Plt Count Lymph % (Auto) [place] % (Auto) Lymph # (Auto) [place] # (Auto) Seg Neutrophils % Seg Neuts % (Manual) Lymphocytes % (Manual) Monocytes % (Manual) Seg Neutrophils # Seg Neutrophils # Man Lymphocytes # (Manual) Monocytes # (Manual) Haptoglobin PT APTT D-Dimer Heparin Anti-Xa Level < 0.10 L ABG pH ABG pO2 ABG HCO3 ABG O2 Saturation ABG Base Excess ABG Hemoglobin Oxyhemoglobin Sodium Potassium Chloride Carbon Dioxide BUN Creatinine Glucose POC Glucose Calcium Phosphorus Magnesium Iron TIBC Ferritin Total Bilirubin AST ALT Lactate Dehydrogenase Total Creatine Kinase Troponin T 1.400 H* C-Reactive Protein Albumin Urine WBC (Auto) Urine Creatinine Urine Total Protein Complement C3 Coronavirus (PCR) Hepatitis C Antibody Crossmatch 05/05/21 05/05/21 05/05/21 03:40 03:40 03:40 WBC RBC Hgb Hct MCV MCHC RDW Plt Count Lymph % (Auto) [place] % (Auto) Lymph # (Auto) [place] # (Auto) Seg Neutrophils % Seg Neuts % (Manual) Lymphocytes % (Manual) Monocytes % (Manual) Seg Neutrophils # Seg Neutrophils # Man Lymphocytes # (Manual) Monocytes # (Manual) Haptoglobin PT APTT D-Dimer Heparin Anti-Xa Level 0.11 L ABG pH ABG pO2 ABG HCO3 ABG O2 Saturation ABG Base Excess ABG Hemoglobin Oxyhemoglobin Sodium Potassium 3.3 L Chloride Carbon Dioxide BUN 59 H Creatinine 2.6 H Glucose 139 H POC Glucose Calcium Phosphorus Magnesium Iron TIBC Ferritin Total Bilirubin AST ALT Lactate Dehydrogenase Total Creatine Kinase Troponin T C-Reactive Protein Albumin Urine WBC (Auto) Urine Creatinine Urine Total Protein Complement C3 Coronavirus (PCR) Hepatitis C Antibody Reactive A Crossmatch 05/05/21 05/05/21 05/05/21 03:40 08:30 09:57 WBC RBC Hgb Hct MCV MCHC RDW Plt Count Lymph % (Auto) [place] % (Auto) Lymph # (Auto) [place] # (Auto) Seg Neutrophils % Seg Neuts % (Manual) Lymphocytes % (Manual) Monocytes % (Manual) Seg Neutrophils # Seg Neutrophils # Man Lymphocytes # (Manual) Monocytes # (Manual) Haptoglobin PT APTT D-Dimer Heparin Anti-Xa Level ABG pH ABG pO2 ABG HCO3 ABG O2 Saturation ABG Base Excess ABG Hemoglobin Oxyhemoglobin Sodium Potassium Chloride Carbon Dioxide BUN Creatinine Glucose POC Glucose Calcium Phosphorus Magnesium Iron TIBC Ferritin Total Bilirubin AST ALT Lactate Dehydrogenase Total Creatine Kinase Troponin T C-Reactive Protein Albumin Urine WBC (Auto) Urine Creatinine 100.8 H Urine Total Protein Complement C3 72 L Coronavirus (PCR) Positive A Hepatitis C Antibody Crossmatch 05/05/21 05/05/21 05/05/21 11:28 17:00 19:51 WBC RBC Hgb Hct MCV MCHC RDW Plt Count Lymph % (Auto) [place] % (Auto) Lymph # (Auto) [place] # (Auto) Seg Neutrophils % Seg Neuts % (Manual) Lymphocytes % (Manual) Monocytes % (Manual) Seg Neutrophils # Seg Neutrophils # Man Lymphocytes # (Manual) Monocytes # (Manual) Haptoglobin PT APTT D-Dimer Heparin Anti-Xa Level 0.10 L 0.22 L ABG pH 7.304 L ABG pO2 140.8 H ABG HCO3 ABG O2 Saturation ABG Base Excess -2.1 L ABG Hemoglobin 10.2 L Oxyhemoglobin Sodium Potassium Chloride Carbon Dioxide BUN Creatinine Glucose POC Glucose Calcium Phosphorus Magnesium Iron TIBC Ferritin Total Bilirubin AST ALT Lactate Dehydrogenase Total Creatine Kinase Troponin T C-Reactive Protein Albumin Urine WBC (Auto) Urine Creatinine Urine Total Protein Complement C3 Coronavirus (PCR) Hepatitis C Antibody Crossmatch 05/06/21 05/06/21 05/06/21 03:47 06:15 17:53 WBC RBC Hgb 9.0 L Hct 27.8 L MCV MCHC RDW Plt Count Lymph % (Auto) [place] % (Auto) Lymph # (Auto) [place] # (Auto) Seg Neutrophils % Seg Neuts % (Manual) Lymphocytes % (Manual) Monocytes % (Manual) Seg Neutrophils # Seg Neutrophils # Man Lymphocytes # (Manual) Monocytes # (Manual) Haptoglobin PT APTT D-Dimer Heparin Anti-Xa Level 0.10 L ABG pH ABG pO2 143.5 H ABG HCO3 ABG O2 Saturation ABG Base Excess -2.4 L ABG Hemoglobin 6.9 L Oxyhemoglobin Sodium Potassium Chloride Carbon Dioxide BUN Creatinine Glucose POC Glucose Calcium Phosphorus Magnesium Iron TIBC Ferritin Total Bilirubin AST ALT Lactate Dehydrogenase Total Creatine Kinase Troponin T C-Reactive Protein Albumin Urine WBC (Auto) Urine Creatinine Urine Total Protein Complement C3 Coronavirus (PCR) Hepatitis C Antibody Crossmatch 05/07/21 05/07/21 05/07/21 00:07 03:22 03:45 WBC RBC Hgb Hct MCV MCHC RDW Plt Count Lymph % (Auto) [place] % (Auto) Lymph # (Auto) [place] # (Auto) Seg Neutrophils % Seg Neuts % (Manual) Lymphocytes % (Manual) Monocytes % (Manual) Seg Neutrophils # Seg Neutrophils # Man Lymphocytes # (Manual) Monocytes # (Manual) Haptoglobin PT APTT D-Dimer Heparin Anti-Xa Level < 0.10 L ABG pH ABG pO2 104.3 H ABG HCO3 ABG O2 Saturation ABG Base Excess -2.6 L ABG Hemoglobin 9.1 L Oxyhemoglobin Sodium Potassium Chloride 107.1 H Carbon Dioxide 20 L BUN 56 H Creatinine 2.9 H Glucose POC Glucose Calcium Phosphorus Magnesium Iron TIBC Ferritin Total Bilirubin AST ALT Lactate Dehydrogenase Total Creatine Kinase Troponin T C-Reactive Protein Albumin Urine WBC (Auto) Urine Creatinine Urine Total Protein Complement C3 Coronavirus (PCR) Hepatitis C Antibody Crossmatch 05/07/21 05/07/21 05/07/21 07:44 16:28 22:41 WBC RBC Hgb Hct MCV MCHC RDW Plt Count Lymph % (Auto) [place] % (Auto) Lymph # (Auto) [place] # (Auto) Seg Neutrophils % Seg Neuts % (Manual) Lymphocytes % (Manual) Monocytes % (Manual) Seg Neutrophils # Seg Neutrophils # Man Lymphocytes # (Manual) Monocytes # (Manual) Haptoglobin PT APTT D-Dimer Heparin Anti-Xa Level < 0.10 L 0.10 L < 0.10 L ABG pH ABG pO2 ABG HCO3 ABG O2 Saturation ABG Base Excess ABG Hemoglobin Oxyhemoglobin Sodium Potassium Chloride Carbon Dioxide BUN Creatinine Glucose POC Glucose Calcium Phosphorus Magnesium Iron TIBC Ferritin Total Bilirubin AST ALT Lactate Dehydrogenase Total Creatine Kinase Troponin T C-Reactive Protein Albumin Urine WBC (Auto) Urine Creatinine Urine Total Protein Complement C3 Coronavirus (PCR) Hepatitis C Antibody Crossmatch 05/08/21 05/08/21 05/08/21 03:25 04:34 07:30 WBC 12.4 H RBC 3.02 L Hgb 9.5 L Hct 29.2 L MCV 97 H MCHC RDW 16.7 H Plt Count Lymph % (Auto) 8.1 L [place] % (Auto) 11.0 H Lymph # (Auto) 1.0 L [place] # (Auto) 1.4 H Seg Neutrophils % 80.1 H Seg Neuts % (Manual) Lymphocytes % (Manual) Monocytes % (Manual) Seg Neutrophils # 9.9 H Seg Neutrophils # Man Lymphocytes # (Manual) Monocytes # (Manual) Haptoglobin PT APTT D-Dimer Heparin Anti-Xa Level ABG pH ABG pO2 139.0 H ABG HCO3 ABG O2 Saturation ABG Base Excess ABG Hemoglobin 8.8 L Oxyhemoglobin Sodium Potassium Chloride 110.5 H Carbon Dioxide BUN 59 H Creatinine 2.8 H Glucose 103 H POC Glucose Calcium Phosphorus Magnesium Iron TIBC Ferritin Total Bilirubin AST ALT 327 H Lactate Dehydrogenase Total Creatine Kinase Troponin T C-Reactive Protein Albumin 3.1 L Urine WBC (Auto) Urine Creatinine Urine Total Protein Complement C3 Coronavirus (PCR) Hepatitis C Antibody Crossmatch 05/09/21 05/09/21 05/09/21 04:10 04:20 04:20 WBC 11.7 H RBC 2.79 L Hgb 8.7 L Hct 26.5 L MCV 95 H MCHC RDW 16.2 H Plt Count Lymph % (Auto) [place] % (Auto) Lymph # (Auto) [place] # (Auto) Seg Neutrophils % Seg Neuts % (Manual) Lymphocytes % (Manual) Monocytes % (Manual) Seg Neutrophils # Seg Neutrophils # Man Lymphocytes # (Manual) Monocytes # (Manual) Haptoglobin PT APTT D-Dimer Heparin Anti-Xa Level ABG pH ABG pO2 161.6 H ABG HCO3 ABG O2 Saturation ABG Base Excess ABG Hemoglobin 8.3 L Oxyhemoglobin Sodium 151 H Potassium Chloride 114.5 H Carbon Dioxide 21 L BUN 57 H Creatinine 2.4 H Glucose POC Glucose Calcium Phosphorus Magnesium Iron TIBC Ferritin Total Bilirubin AST ALT 210 H Lactate Dehydrogenase Total Creatine Kinase Troponin T C-Reactive Protein Albumin 2.9 L Urine WBC (Auto) Urine Creatinine Urine Total Protein Complement C3 Coronavirus (PCR) Hepatitis C Antibody Crossmatch 05/09/21 05/09/21 05/09/21 09:48 09:48 13:22 WBC 11.6 H RBC 3.00 L Hgb 9.0 L Hct 28.4 L MCV MCHC RDW 15.9 H Plt Count Lymph % (Auto) 5.9 L [place] % (Auto) 8.9 H Lymph # (Auto) 0.7 L [place] # (Auto) 1.0 H Seg Neutrophils % 84.3 H Seg Neuts % (Manual) Lymphocytes % (Manual) Monocytes % (Manual) Seg Neutrophils # 9.8 H Seg Neutrophils # Man Lymphocytes # (Manual) Monocytes # (Manual) Haptoglobin PT APTT D-Dimer Heparin Anti-Xa Level ABG pH ABG pO2 ABG HCO3 ABG O2 Saturation ABG Base Excess ABG Hemoglobin Oxyhemoglobin Sodium Potassium Chloride Carbon Dioxide BUN Creatinine Glucose POC Glucose Calcium Phosphorus Magnesium Iron TIBC Ferritin Total Bilirubin AST ALT Lactate Dehydrogenase Total Creatine Kinase Troponin T C-Reactive Protein 8.70 H Albumin Urine WBC (Auto) 25.0 H Urine Creatinine Urine Total Protein Complement C3 Coronavirus (PCR) Hepatitis C Antibody Crossmatch 05/09/21 05/09/21 05/10/21 15:20 18:16 04:57 WBC RBC 2.87 L Hgb 8.8 L Hct 27.0 L MCV MCHC RDW 15.9 H Plt Count Lymph % (Auto) [place] % (Auto) Lymph # (Auto) [place] # (Auto) Seg Neutrophils % Seg Neuts % (Manual) Lymphocytes % (Manual) Monocytes % (Manual) Seg Neutrophils # Seg Neutrophils # Man Lymphocytes # (Manual) Monocytes # (Manual) Haptoglobin PT APTT D-Dimer Heparin Anti-Xa Level ABG pH ABG pO2 102.0 H ABG HCO3 ABG O2 Saturation ABG Base Excess -2.8 L ABG Hemoglobin 9.0 L Oxyhemoglobin Sodium Potassium Chloride Carbon Dioxide BUN Creatinine Glucose POC Glucose 130 H Calcium Phosphorus Magnesium Iron TIBC Ferritin Total Bilirubin AST ALT Lactate Dehydrogenase Total Creatine Kinase Troponin T C-Reactive Protein Albumin Urine WBC (Auto) Urine Creatinine Urine Total Protein Complement C3 Coronavirus (PCR) Hepatitis C Antibody Crossmatch 05/10/21 05/10/21 05/10/21 04:57 04:57 04:57 WBC RBC Hgb Hct MCV MCHC RDW Plt Count Lymph % (Auto) [place] % (Auto) Lymph # (Auto) [place] # (Auto) Seg Neutrophils % Seg Neuts % (Manual) Lymphocytes % (Manual) Monocytes % (Manual) Seg Neutrophils # Seg Neutrophils # Man Lymphocytes # (Manual) Monocytes # (Manual) Haptoglobin PT APTT D-Dimer 1546.78 H Heparin Anti-Xa Level ABG pH ABG pO2 ABG HCO3 ABG O2 Saturation ABG Base Excess ABG Hemoglobin Oxyhemoglobin Sodium 148 H Potassium Chloride 114.9 H Carbon Dioxide 21 L BUN 57 H Creatinine 2.3 H Glucose 157 H POC Glucose Calcium Phosphorus Magnesium Iron TIBC Ferritin 888.2 H Total Bilirubin AST ALT Lactate Dehydrogenase 289 H Total Creatine Kinase Troponin T C-Reactive Protein 6.80 H Albumin Urine WBC (Auto) Urine Creatinine Urine Total Protein Complement C3 Coronavirus (PCR) Hepatitis C Antibody Crossmatch 05/10/21 05/10/21 05/10/21 05:09 08:04 11:03 WBC RBC Hgb Hct MCV MCHC RDW Plt Count Lymph % (Auto) [place] % (Auto) Lymph # (Auto) [place] # (Auto) Seg Neutrophils % Seg Neuts % (Manual) Lymphocytes % (Manual) Monocytes % (Manual) Seg Neutrophils # Seg Neutrophils # Man Lymphocytes # (Manual) Monocytes # (Manual) Haptoglobin PT APTT D-Dimer Heparin Anti-Xa Level ABG pH 7.473 H ABG pO2 114.6 H ABG HCO3 ABG O2 Saturation ABG Base Excess ABG Hemoglobin 9.5 L Oxyhemoglobin Sodium Potassium Chloride Carbon Dioxide BUN Creatinine Glucose POC Glucose 152 H Calcium Phosphorus Magnesium Iron TIBC Ferritin Total Bilirubin AST ALT Lactate Dehydrogenase Total Creatine Kinase Troponin T C-Reactive Protein Albumin Urine WBC (Auto) Urine Creatinine 100.8 H Urine Total Protein 42 H Complement C3 Coronavirus (PCR) Hepatitis C Antibody Crossmatch 05/10/21 05/10/21 05/10/21 13:07 18:01 23:31 WBC RBC Hgb Hct MCV MCHC RDW Plt Count Lymph % (Auto) [place] % (Auto) Lymph # (Auto) [place] # (Auto) Seg Neutrophils % Seg Neuts % (Manual) Lymphocytes % (Manual) Monocytes % (Manual) Seg Neutrophils # Seg Neutrophils # Man Lymphocytes # (Manual) Monocytes # (Manual) Haptoglobin PT APTT D-Dimer Heparin Anti-Xa Level ABG pH ABG pO2 ABG HCO3 ABG O2 Saturation ABG Base Excess ABG Hemoglobin Oxyhemoglobin Sodium Potassium Chloride Carbon Dioxide BUN Creatinine Glucose POC Glucose 150 H 189 H 142 H Calcium Phosphorus Magnesium Iron TIBC Ferritin Total Bilirubin AST ALT Lactate Dehydrogenase Total Creatine Kinase Troponin T C-Reactive Protein Albumin Urine WBC (Auto) Urine Creatinine Urine Total Protein Complement C3 Coronavirus (PCR) Hepatitis C Antibody Crossmatch 05/10/21 05/11/21 05/11/21 Unknown 05:25 06:53 WBC RBC Hgb Hct MCV MCHC RDW Plt Count Lymph % (Auto) [place] % (Auto) Lymph # (Auto) [place] # (Auto) Seg Neutrophils % Seg Neuts % (Manual) Lymphocytes % (Manual) Monocytes % (Manual) Seg Neutrophils # Seg Neutrophils # Man Lymphocytes # (Manual) Monocytes # (Manual) Haptoglobin PT APTT D-Dimer Heparin Anti-Xa Level ABG pH ABG pO2 126.6 H ABG HCO3 ABG O2 Saturation ABG Base Excess ABG Hemoglobin 9.2 L Oxyhemoglobin Sodium 150 H Potassium Chloride 116.6 H Carbon Dioxide 21 L BUN 62 H Creatinine 2.5 H Glucose 142 H POC Glucose 163 H Calcium Phosphorus Magnesium Iron TIBC Ferritin Total Bilirubin AST ALT Lactate Dehydrogenase Total Creatine Kinase Troponin T C-Reactive Protein Albumin Urine WBC (Auto) Urine Creatinine Urine Total Protein Complement C3 Coronavirus (PCR) Hepatitis C Antibody Crossmatch 05/11/21 05/11/21 05/11/21 06:53 11:06 13:51 WBC RBC 3.07 L Hgb 9.3 L Hct 29.0 L MCV 95 H MCHC RDW 16.1 H Plt Count Lymph % (Auto) [place] % (Auto) Lymph # (Auto) [place] # (Auto) Seg Neutrophils % Seg Neuts % (Manual) Lymphocytes % (Manual) Monocytes % (Manual) Seg Neutrophils # Seg Neutrophils # Man Lymphocytes # (Manual) Monocytes # (Manual) Haptoglobin PT APTT D-Dimer Heparin Anti-Xa Level ABG pH ABG pO2 74.9 L ABG HCO3 ABG O2 Saturation ABG Base Excess -3.3 L ABG Hemoglobin 10.8 L Oxyhemoglobin Sodium Potassium Chloride Carbon Dioxide BUN Creatinine Glucose POC Glucose 145 H Calcium Phosphorus Magnesium Iron TIBC Ferritin Total Bilirubin AST ALT Lactate Dehydrogenase Total Creatine Kinase Troponin T C-Reactive Protein Albumin Urine WBC (Auto) Urine Creatinine Urine Total Protein Complement C3 Coronavirus (PCR) Hepatitis C Antibody Crossmatch 05/11/21 05/11/21 05/11/21 14:43 14:43 15:47 WBC RBC Hgb 9.2 L Hct 29.7 L MCV MCHC RDW Plt Count Lymph % (Auto) [place] % (Auto) Lymph # (Auto) [place] # (Auto) Seg Neutrophils % Seg Neuts % (Manual) Lymphocytes % (Manual) Monocytes % (Manual) Seg Neutrophils # Seg Neutrophils # Man Lymphocytes # (Manual) Monocytes # (Manual) Haptoglobin PT 15.6 H APTT D-Dimer Heparin Anti-Xa Level ABG pH ABG pO2 ABG HCO3 ABG O2 Saturation ABG Base Excess ABG Hemoglobin Oxyhemoglobin Sodium Potassium Chloride Carbon Dioxide BUN Creatinine Glucose POC Glucose 137 H Calcium Phosphorus Magnesium Iron TIBC Ferritin Total Bilirubin AST ALT Lactate Dehydrogenase Total Creatine Kinase Troponin T C-Reactive Protein Albumin Urine WBC (Auto) Urine Creatinine Urine Total Protein Complement C3 Coronavirus (PCR) Hepatitis C Antibody Crossmatch 05/12/21 05/12/21 05/12/21 00:04 05:07 07:19 WBC 11.9 H RBC 3.00 L Hgb 9.1 L Hct 28.9 L MCV 96 H MCHC RDW 16.7 H Plt Count Lymph % (Auto) 11.5 L [place] % (Auto) 8.2 H Lymph # (Auto) [place] # (Auto) 1.0 H Seg Neutrophils % 80.0 H Seg Neuts % (Manual) Lymphocytes % (Manual) Monocytes % (Manual) Seg Neutrophils # 9.6 H Seg Neutrophils # Man Lymphocytes # (Manual) Monocytes # (Manual) Haptoglobin PT APTT D-Dimer Heparin Anti-Xa Level ABG pH ABG pO2 ABG HCO3 ABG O2 Saturation ABG Base Excess ABG Hemoglobin Oxyhemoglobin Sodium Potassium Chloride Carbon Dioxide BUN Creatinine Glucose POC Glucose 121 H 117 H Calcium Phosphorus Magnesium Iron TIBC Ferritin Total Bilirubin AST ALT Lactate Dehydrogenase Total Creatine Kinase Troponin T C-Reactive Protein Albumin Urine WBC (Auto) Urine Creatinine Urine Total Protein Complement C3 Coronavirus (PCR) Hepatitis C Antibody Crossmatch 05/12/21 05/12/21 05/12/21 07:19 07:19 07:19 WBC RBC Hgb Hct MCV MCHC RDW Plt Count Lymph % (Auto) [place] % (Auto) Lymph # (Auto) [place] # (Auto) Seg Neutrophils % Seg Neuts % (Manual) Lymphocytes % (Manual) Monocytes % (Manual) Seg Neutrophils # Seg Neutrophils # Man Lymphocytes # (Manual) Monocytes # (Manual) Haptoglobin PT APTT D-Dimer 2730.61 H Heparin Anti-Xa Level ABG pH ABG pO2 ABG HCO3 ABG O2 Saturation ABG Base Excess ABG Hemoglobin Oxyhemoglobin Sodium 146 H Potassium 5.1 H Chloride 112.4 H Carbon Dioxide 21 L BUN 61 H Creatinine 2.2 H Glucose 136 H POC Glucose Calcium 8.1 L Phosphorus Magnesium Iron TIBC Ferritin 640.2 H Total Bilirubin AST ALT Lactate Dehydrogenase 314 H Total Creatine Kinase Troponin T C-Reactive Protein 1.60 H Albumin Urine WBC (Auto) Urine Creatinine Urine Total Protein Complement C3 Coronavirus (PCR) Hepatitis C Antibody Crossmatch 05/12/21 05/12/21 05/12/21 11:10 16:10 16:38 WBC RBC Hgb Hct MCV MCHC RDW Plt Count Lymph % (Auto) [place] % (Auto) Lymph # (Auto) [place] # (Auto) Seg Neutrophils % Seg Neuts % (Manual) Lymphocytes % (Manual) Monocytes % (Manual) Seg Neutrophils # Seg Neutrophils # Man Lymphocytes # (Manual) Monocytes # (Manual) Haptoglobin PT APTT D-Dimer Heparin Anti-Xa Level 0.20 L ABG pH ABG pO2 ABG HCO3 ABG O2 Saturation ABG Base Excess ABG Hemoglobin Oxyhemoglobin Sodium Potassium Chloride Carbon Dioxide BUN Creatinine Glucose POC Glucose 131 H 157 H Calcium Phosphorus Magnesium Iron TIBC Ferritin Total Bilirubin AST ALT Lactate Dehydrogenase Total Creatine Kinase Troponin T C-Reactive Protein Albumin Urine WBC (Auto) Urine Creatinine Urine Total Protein Complement C3 Coronavirus (PCR) Hepatitis C Antibody Crossmatch 05/12/21 05/13/21 05/13/21 23:30 00:12 04:20 WBC RBC Hgb Hct MCV MCHC RDW Plt Count Lymph % (Auto) [place] % (Auto) Lymph # (Auto) [place] # (Auto) Seg Neutrophils % Seg Neuts % (Manual) Lymphocytes % (Manual) Monocytes % (Manual) Seg Neutrophils # Seg Neutrophils # Man Lymphocytes # (Manual) Monocytes # (Manual) Haptoglobin PT APTT D-Dimer Heparin Anti-Xa Level 0.13 L ABG pH ABG pO2 ABG HCO3 ABG O2 Saturation ABG Base Excess ABG Hemoglobin Oxyhemoglobin Sodium Potassium Chloride 111.2 H Carbon Dioxide BUN 53 H Creatinine 1.9 H Glucose 121 H POC Glucose 115 H Calcium 8.3 L Phosphorus Magnesium Iron TIBC Ferritin Total Bilirubin AST ALT Lactate Dehydrogenase Total Creatine Kinase Troponin T C-Reactive Protein Albumin Urine WBC (Auto) Urine Creatinine Urine Total Protein Complement C3 Coronavirus (PCR) Hepatitis C Antibody Crossmatch 05/13/21 05/13/21 05/13/21 04:20 11:15 11:29 WBC 13.1 H RBC 2.86 L Hgb 8.5 L Hct 26.9 L MCV MCHC RDW 15.7 H Plt Count Lymph % (Auto) [place] % (Auto) Lymph # (Auto) [place] # (Auto) Seg Neutrophils % Seg Neuts % (Manual) Lymphocytes % (Manual) Monocytes % (Manual) Seg Neutrophils # Seg Neutrophils # Man Lymphocytes # (Manual) Monocytes # (Manual) Haptoglobin PT APTT D-Dimer Heparin Anti-Xa Level ABG pH 7.456 H ABG pO2 106.0 H ABG HCO3 ABG O2 Saturation ABG Base Excess ABG Hemoglobin 7.1 L Oxyhemoglobin Sodium Potassium Chloride Carbon Dioxide BUN Creatinine Glucose POC Glucose 121 H Calcium Phosphorus Magnesium Iron TIBC Ferritin Total Bilirubin AST ALT Lactate Dehydrogenase Total Creatine Kinase Troponin T C-Reactive Protein Albumin Urine WBC (Auto) Urine Creatinine Urine Total Protein Complement C3 Coronavirus (PCR) Hepatitis C Antibody Crossmatch 05/13/21 05/13/21 05/14/21 16:38 23:43 04:26 WBC 14.2 H RBC 3.11 L Hgb 9.4 L Hct 29.3 L MCV MCHC RDW 15.4 H Plt Count Lymph % (Auto) [place] % (Auto) Lymph # (Auto) [place] # (Auto) Seg Neutrophils % Seg Neuts % (Manual) Lymphocytes % (Manual) Monocytes % (Manual) Seg Neutrophils # Seg Neutrophils # Man Lymphocytes # (Manual) Monocytes # (Manual) Haptoglobin PT APTT D-Dimer Heparin Anti-Xa Level ABG pH ABG pO2 ABG HCO3 ABG O2 Saturation ABG Base Excess ABG Hemoglobin Oxyhemoglobin Sodium Potassium Chloride Carbon Dioxide BUN Creatinine Glucose POC Glucose 119 H 55 L Calcium Phosphorus Magnesium Iron TIBC Ferritin Total Bilirubin AST ALT Lactate Dehydrogenase Total Creatine Kinase Troponin T C-Reactive Protein Albumin Urine WBC (Auto) Urine Creatinine Urine Total Protein Complement C3 Coronavirus (PCR) Hepatitis C Antibody Crossmatch 05/14/21 05/14/21 05/14/21 04:26 05:26 06:51 WBC RBC Hgb Hct MCV MCHC RDW Plt Count Lymph % (Auto) [place] % (Auto) Lymph # (Auto) [place] # (Auto) Seg Neutrophils % Seg Neuts % (Manual) Lymphocytes % (Manual) Monocytes % (Manual) Seg Neutrophils # Seg Neutrophils # Man Lymphocytes # (Manual) Monocytes # (Manual) Haptoglobin PT APTT D-Dimer Heparin Anti-Xa Level ABG pH ABG pO2 ABG HCO3 ABG O2 Saturation ABG Base Excess ABG Hemoglobin Oxyhemoglobin Sodium Potassium 3.4 L Chloride 107.6 H Carbon Dioxide BUN 42 H Creatinine 1.9 H Glucose POC Glucose 51 L 62 L Calcium Phosphorus Magnesium Iron TIBC Ferritin Total Bilirubin AST ALT Lactate Dehydrogenase Total Creatine Kinase Troponin T C-Reactive Protein Albumin Urine WBC (Auto) Urine Creatinine Urine Total Protein Complement C3 Coronavirus (PCR) Hepatitis C Antibody Crossmatch 05/14/21 05/14/21 05/14/21 09:58 12:05 12:08 WBC RBC Hgb Hct MCV MCHC RDW Plt Count Lymph % (Auto) [place] % (Auto) Lymph # (Auto) [place] # (Auto) Seg Neutrophils % Seg Neuts % (Manual) Lymphocytes % (Manual) Monocytes % (Manual) Seg Neutrophils # Seg Neutrophils # Man Lymphocytes # (Manual) Monocytes # (Manual) Haptoglobin PT APTT D-Dimer Heparin Anti-Xa Level ABG pH ABG pO2 ABG HCO3 ABG O2 Saturation ABG Base Excess ABG Hemoglobin Oxyhemoglobin Sodium Potassium 3.4 L Chloride Carbon Dioxide BUN 36 H Creatinine 1.8 H Glucose 133 H POC Glucose 60 L 127 H Calcium Phosphorus Magnesium Iron TIBC Ferritin Total Bilirubin AST ALT Lactate Dehydrogenase Total Creatine Kinase Troponin T C-Reactive Protein Albumin Urine WBC (Auto) Urine Creatinine Urine Total Protein Complement C3 Coronavirus (PCR) Hepatitis C Antibody Crossmatch 05/14/21 05/14/21 05/15/21 17:20 23:37 05:34 WBC RBC Hgb Hct MCV MCHC RDW Plt Count Lymph % (Auto) [place] % (Auto) Lymph # (Auto) [place] # (Auto) Seg Neutrophils % Seg Neuts % (Manual) Lymphocytes % (Manual) Monocytes % (Manual) Seg Neutrophils # Seg Neutrophils # Man Lymphocytes # (Manual) Monocytes # (Manual) Haptoglobin PT APTT D-Dimer Heparin Anti-Xa Level ABG pH ABG pO2 ABG HCO3 ABG O2 Saturation ABG Base Excess ABG Hemoglobin Oxyhemoglobin Sodium Potassium Chloride Carbon Dioxide BUN Creatinine Glucose POC Glucose 144 H 115 H 119 H Calcium Phosphorus Magnesium Iron TIBC Ferritin Total Bilirubin AST ALT Lactate Dehydrogenase Total Creatine Kinase Troponin T C-Reactive Protein Albumin Urine WBC (Auto) Urine Creatinine Urine Total Protein Complement C3 Coronavirus (PCR) Hepatitis C Antibody Crossmatch 05/15/21 05/15/21 05/15/21 07:26 07:26 14:35 WBC 13.8 H RBC 3.32 L Hgb 10.0 L Hct 31.2 L MCV MCHC RDW 16.0 H Plt Count Lymph % (Auto) [place] % (Auto) Lymph # (Auto) [place] # (Auto) Seg Neutrophils % Seg Neuts % (Manual) Lymphocytes % (Manual) Monocytes % (Manual) Seg Neutrophils # Seg Neutrophils # Man Lymphocytes # (Manual) Monocytes # (Manual) Haptoglobin PT APTT D-Dimer Heparin Anti-Xa Level ABG pH ABG pO2 ABG HCO3 ABG O2 Saturation ABG Base Excess ABG Hemoglobin Oxyhemoglobin Sodium 149 H D Potassium 3.5 L Chloride 113.2 H Carbon Dioxide BUN 29 H Creatinine 1.8 H Glucose 113 H POC Glucose 143 H Calcium Phosphorus Magnesium Iron TIBC Ferritin Total Bilirubin AST ALT Lactate Dehydrogenase Total Creatine Kinase Troponin T C-Reactive Protein Albumin Urine WBC (Auto) Urine Creatinine Urine Total Protein Complement C3 Coronavirus (PCR) Hepatitis C Antibody Crossmatch 05/16/21 05/16/21 05/16/21 06:12 08:43 10:05 WBC RBC Hgb Hct MCV MCHC RDW Plt Count Lymph % (Auto) [place] % (Auto) Lymph # (Auto) [place] # (Auto) Seg Neutrophils % Seg Neuts % (Manual) Lymphocytes % (Manual) Monocytes % (Manual) Seg Neutrophils # Seg Neutrophils # Man Lymphocytes # (Manual) Monocytes # (Manual) Haptoglobin PT APTT D-Dimer Heparin Anti-Xa Level 0.21 L ABG pH ABG pO2 240.8 H ABG HCO3 ABG O2 Saturation 99.4 H ABG Base Excess -2.6 L ABG Hemoglobin 10.7 L Oxyhemoglobin Sodium Potassium Chloride Carbon Dioxide BUN Creatinine Glucose POC Glucose 34 L Calcium Phosphorus Magnesium Iron TIBC Ferritin Total Bilirubin AST ALT Lactate Dehydrogenase Total Creatine Kinase Troponin T C-Reactive Protein Albumin Urine WBC (Auto) Urine Creatinine Urine Total Protein Complement C3 Coronavirus (PCR) Hepatitis C Antibody Crossmatch 05/16/21 05/16/21 05/16/21 10:21 10:21 13:14 WBC 27.6 H RBC Hgb 11.4 L Hct MCV 99 H MCHC 30 L RDW 18.1 H Plt Count Lymph % (Auto) [place] % (Auto) Lymph # (Auto) [place] # (Auto) Seg Neutrophils % Seg Neuts % (Manual) 83.0 H Lymphocytes % (Manual) 4.0 L Monocytes % (Manual) 9.0 H Seg Neutrophils # Seg Neutrophils # Man 22.9 H Lymphocytes # (Manual) 1.1 L Monocytes # (Manual) 2.5 H Haptoglobin PT APTT D-Dimer Heparin Anti-Xa Level ABG pH ABG pO2 ABG HCO3 ABG O2 Saturation ABG Base Excess ABG Hemoglobin Oxyhemoglobin Sodium Potassium Chloride 108.8 H Carbon Dioxide 17 L BUN 26 H Creatinine 1.9 H Glucose 141 H POC Glucose Calcium Phosphorus Magnesium Iron TIBC Ferritin Total Bilirubin AST ALT Lactate Dehydrogenase Total Creatine Kinase Troponin T 0.503 H* C-Reactive Protein Albumin 3.1 L Urine WBC (Auto) Urine Creatinine Urine Total Protein Complement C3 Coronavirus (PCR) Hepatitis C Antibody Crossmatch 05/16/21 05/17/21 05/17/21 18:40 00:02 04:52 WBC RBC Hgb 8.8 L Hct 28.5 L D MCV MCHC RDW Plt Count Lymph % (Auto) [place] % (Auto) Lymph # (Auto) [place] # (Auto) Seg Neutrophils % Seg Neuts % (Manual) Lymphocytes % (Manual) Monocytes % (Manual) Seg Neutrophils # Seg Neutrophils # Man Lymphocytes # (Manual) Monocytes # (Manual) Haptoglobin PT APTT D-Dimer Heparin Anti-Xa Level ABG pH ABG pO2 ABG HCO3 ABG O2 Saturation ABG Base Excess ABG Hemoglobin Oxyhemoglobin Sodium Potassium Chloride Carbon Dioxide BUN Creatinine Glucose POC Glucose 114 H Calcium Phosphorus Magnesium Iron TIBC Ferritin Total Bilirubin AST ALT Lactate Dehydrogenase Total Creatine Kinase Troponin T 0.400 H* D C-Reactive Protein Albumin Urine WBC (Auto) Urine Creatinine Urine Total Protein Complement C3 Coronavirus (PCR) Hepatitis C Antibody Crossmatch 05/17/21 05/17/21 05/17/21 04:52 05:15 06:50 WBC RBC Hgb Hct MCV MCHC RDW Plt Count Lymph % (Auto) [place] % (Auto) Lymph # (Auto) [place] # (Auto) Seg Neutrophils % Seg Neuts % (Manual) Lymphocytes % (Manual) Monocytes % (Manual) Seg Neutrophils # Seg Neutrophils # Man Lymphocytes # (Manual) Monocytes # (Manual) Haptoglobin PT APTT D-Dimer Heparin Anti-Xa Level ABG pH ABG pO2 193.7 H ABG HCO3 27.7 H ABG O2 Saturation 99.2 H ABG Base Excess 3.4 H ABG Hemoglobin 9.2 L Oxyhemoglobin Sodium 146 H Potassium Chloride 110.3 H Carbon Dioxide BUN 33 H Creatinine 2.3 H Glucose 120 H POC Glucose 109 H Calcium Phosphorus Magnesium Iron TIBC Ferritin Total Bilirubin AST ALT Lactate Dehydrogenase Total Creatine Kinase Troponin T C-Reactive Protein Albumin Urine WBC (Auto) Urine Creatinine Urine Total Protein Complement C3 Coronavirus (PCR) Hepatitis C Antibody Crossmatch 05/17/21 05/17/21 05/17/21 10:30 11:33 15:35 WBC RBC Hgb Hct MCV MCHC RDW Plt Count Lymph % (Auto) [place] % (Auto) Lymph # (Auto) [place] # (Auto) Seg Neutrophils % Seg Neuts % (Manual) Lymphocytes % (Manual) Monocytes % (Manual) Seg Neutrophils # Seg Neutrophils # Man Lymphocytes # (Manual) Monocytes # (Manual) Haptoglobin PT APTT D-Dimer Heparin Anti-Xa Level ABG pH 7.457 H ABG pO2 162.5 H 103.7 H ABG HCO3 27.7 H 27.5 H ABG O2 Saturation ABG Base Excess 3.6 H ABG Hemoglobin 10.1 L 11.5 L Oxyhemoglobin Sodium Potassium Chloride Carbon Dioxide BUN Creatinine Glucose POC Glucose 122 H Calcium Phosphorus Magnesium Iron TIBC Ferritin Total Bilirubin AST ALT Lactate Dehydrogenase Total Creatine Kinase Troponin T C-Reactive Protein Albumin Urine WBC (Auto) Urine Creatinine Urine Total Protein Complement C3 Coronavirus (PCR) Hepatitis C Antibody Crossmatch 05/17/21 05/17/21 05/17/21 16:21 18:18 23:29 WBC RBC Hgb 9.6 L Hct 30.3 L MCV MCHC RDW Plt Count Lymph % (Auto) [place] % (Auto) Lymph # (Auto) [place] # (Auto) Seg Neutrophils % Seg Neuts % (Manual) Lymphocytes % (Manual) Monocytes % (Manual) Seg Neutrophils # Seg Neutrophils # Man Lymphocytes # (Manual) Monocytes # (Manual) Haptoglobin PT APTT D-Dimer Heparin Anti-Xa Level ABG pH ABG pO2 ABG HCO3 ABG O2 Saturation ABG Base Excess ABG Hemoglobin Oxyhemoglobin Sodium Potassium Chloride Carbon Dioxide BUN Creatinine Glucose POC Glucose 133 H 111 H Calcium Phosphorus Magnesium Iron TIBC Ferritin Total Bilirubin AST ALT Lactate Dehydrogenase Total Creatine Kinase Troponin T C-Reactive Protein Albumin Urine WBC (Auto) Urine Creatinine Urine Total Protein Complement C3 Coronavirus (PCR) Hepatitis C Antibody Crossmatch 05/18/21 05/18/21 05/18/21 04:15 04:15 05:01 WBC 16.8 H RBC 3.03 L Hgb 8.9 L Hct 28.7 L MCV 95 H MCHC 31 L RDW 16.4 H Plt Count Lymph % (Auto) [place] % (Auto) Lymph # (Auto) [place] # (Auto) Seg Neutrophils % Seg Neuts % (Manual) Lymphocytes % (Manual) Monocytes % (Manual) Seg Neutrophils # Seg Neutrophils # Man Lymphocytes # (Manual) Monocytes # (Manual) Haptoglobin PT APTT D-Dimer Heparin Anti-Xa Level ABG pH ABG pO2 ABG HCO3 ABG O2 Saturation ABG Base Excess ABG Hemoglobin Oxyhemoglobin Sodium Potassium Chloride Carbon Dioxide BUN 40 H Creatinine 2.1 H Glucose 115 H POC Glucose 113 H Calcium Phosphorus Magnesium Iron TIBC Ferritin Total Bilirubin AST ALT Lactate Dehydrogenase Total Creatine Kinase Troponin T C-Reactive Protein Albumin Urine WBC (Auto) Urine Creatinine Urine Total Protein Complement C3 Coronavirus (PCR) Hepatitis C Antibody Crossmatch 05/18/21 05/18/21 05/19/21 11:18 12:50 05:23 WBC 18.5 H RBC 3.31 L Hgb 9.9 L Hct 31.1 L MCV MCHC RDW 16.9 H Plt Count Lymph % (Auto) [place] % (Auto) Lymph # (Auto) [place] # (Auto) Seg Neutrophils % Seg Neuts % (Manual) Lymphocytes % (Manual) Monocytes % (Manual) Seg Neutrophils # Seg Neutrophils # Man Lymphocytes # (Manual) Monocytes # (Manual) Haptoglobin PT APTT D-Dimer Heparin Anti-Xa Level ABG pH ABG pO2 79.6 L ABG HCO3 28.0 H ABG O2 Saturation ABG Base Excess 3.3 H ABG Hemoglobin 6.2 L Oxyhemoglobin Sodium Potassium Chloride Carbon Dioxide BUN Creatinine Glucose POC Glucose 129 H Calcium Phosphorus Magnesium Iron TIBC Ferritin Total Bilirubin AST ALT Lactate Dehydrogenase Total Creatine Kinase Troponin T C-Reactive Protein Albumin Urine WBC (Auto) Urine Creatinine Urine Total Protein Complement C3 Coronavirus (PCR) Hepatitis C Antibody Crossmatch 05/19/21 05/19/21 05/19/21 05:23 05:23 11:24 WBC RBC Hgb Hct MCV MCHC RDW Plt Count Lymph % (Auto) [place] % (Auto) Lymph # (Auto) [place] # (Auto) Seg Neutrophils % Seg Neuts % (Manual) Lymphocytes % (Manual) Monocytes % (Manual) Seg Neutrophils # Seg Neutrophils # Man Lymphocytes # (Manual) Monocytes # (Manual) Haptoglobin PT APTT D-Dimer Heparin Anti-Xa Level ABG pH ABG pO2 ABG HCO3 ABG O2 Saturation ABG Base Excess ABG Hemoglobin Oxyhemoglobin Sodium Potassium Chloride Carbon Dioxide BUN 35 H 34 H Creatinine 2.0 H 2.1 H Glucose POC Glucose 111 H Calcium Phosphorus Magnesium Iron TIBC Ferritin Total Bilirubin AST ALT Lactate Dehydrogenase Total Creatine Kinase Troponin T C-Reactive Protein Albumin Urine WBC (Auto) Urine Creatinine Urine Total Protein Complement C3 Coronavirus (PCR) Hepatitis C Antibody Crossmatch 05/19/21 05/19/21 05/19/21 16:33 19:36 23:47 WBC RBC Hgb Hct MCV MCHC RDW Plt Count Lymph % (Auto) [place] % (Auto) Lymph # (Auto) [place] # (Auto) Seg Neutrophils % Seg Neuts % (Manual) Lymphocytes % (Manual) Monocytes % (Manual) Seg Neutrophils # Seg Neutrophils # Man Lymphocytes # (Manual) Monocytes # (Manual) Haptoglobin PT APTT 72.5 H* D-Dimer Heparin Anti-Xa Level ABG pH ABG pO2 ABG HCO3 ABG O2 Saturation ABG Base Excess ABG Hemoglobin Oxyhemoglobin Sodium Potassium Chloride Carbon Dioxide BUN Creatinine Glucose POC Glucose 131 H 122 H Calcium Phosphorus Magnesium Iron TIBC Ferritin Total Bilirubin AST ALT Lactate Dehydrogenase Total Creatine Kinase Troponin T C-Reactive Protein Albumin Urine WBC (Auto) Urine Creatinine Urine Total Protein Complement C3 Coronavirus (PCR) Hepatitis C Antibody Crossmatch 05/20/21 05/20/21 05/20/21 05:14 05:14 06:12 WBC 19.7 H RBC 3.19 L Hgb 9.5 L Hct 29.9 L MCV MCHC RDW 17.3 H Plt Count Lymph % (Auto) [place] % (Auto) Lymph # (Auto) [place] # (Auto) Seg Neutrophils % Seg Neuts % (Manual) Lymphocytes % (Manual) Monocytes % (Manual) Seg Neutrophils # Seg Neutrophils # Man Lymphocytes # (Manual) Monocytes # (Manual) Haptoglobin PT APTT D-Dimer Heparin Anti-Xa Level ABG pH ABG pO2 ABG HCO3 ABG O2 Saturation ABG Base Excess ABG Hemoglobin Oxyhemoglobin Sodium Potassium Chloride Carbon Dioxide BUN 31 H Creatinine 2.1 H Glucose 130 H POC Glucose 120 H Calcium Phosphorus Magnesium Iron TIBC Ferritin Total Bilirubin AST ALT Lactate Dehydrogenase Total Creatine Kinase Troponin T C-Reactive Protein Albumin Urine WBC (Auto) Urine Creatinine Urine Total Protein Complement C3 Coronavirus (PCR) Hepatitis C Antibody Crossmatch 05/20/21 05/20/21 05/20/21 11:10 18:12 23:55 WBC RBC Hgb Hct MCV MCHC RDW Plt Count Lymph % (Auto) [place] % (Auto) Lymph # (Auto) [place] # (Auto) Seg Neutrophils % Seg Neuts % (Manual) Lymphocytes % (Manual) Monocytes % (Manual) Seg Neutrophils # Seg Neutrophils # Man Lymphocytes # (Manual) Monocytes # (Manual) Haptoglobin PT APTT D-Dimer Heparin Anti-Xa Level ABG pH ABG pO2 ABG HCO3 ABG O2 Saturation ABG Base Excess ABG Hemoglobin Oxyhemoglobin Sodium Potassium Chloride Carbon Dioxide BUN Creatinine Glucose POC Glucose 152 H 137 H 146 H Calcium Phosphorus Magnesium Iron TIBC Ferritin Total Bilirubin AST ALT Lactate Dehydrogenase Total Creatine Kinase Troponin T C-Reactive Protein Albumin Urine WBC (Auto) Urine Creatinine Urine Total Protein Complement C3 Coronavirus (PCR) Hepatitis C Antibody Crossmatch 05/21/21 05/21/21 05/21/21 03:12 03:12 05:53 WBC 26.2 H RBC 2.58 L Hgb 7.7 L Hct 24.2 L MCV MCHC RDW 17.8 H Plt Count Lymph % (Auto) [place] % (Auto) Lymph # (Auto) [place] # (Auto) Seg Neutrophils % Seg Neuts % (Manual) Lymphocytes % (Manual) Monocytes % (Manual) Seg Neutrophils # Seg Neutrophils # Man Lymphocytes # (Manual) Monocytes # (Manual) Haptoglobin PT APTT D-Dimer Heparin Anti-Xa Level ABG pH ABG pO2 ABG HCO3 ABG O2 Saturation ABG Base Excess ABG Hemoglobin Oxyhemoglobin Sodium 133 L Potassium 5.7 H D Chloride Carbon Dioxide 21 L BUN 49 H Creatinine 2.6 H Glucose 160 H POC Glucose 118 H Calcium Phosphorus Magnesium Iron TIBC Ferritin Total Bilirubin AST ALT Lactate Dehydrogenase Total Creatine Kinase Troponin T C-Reactive Protein Albumin Urine WBC (Auto) Urine Creatinine Urine Total Protein Complement C3 Coronavirus (PCR) Hepatitis C Antibody Crossmatch 05/21/21 05/22/21 05/22/21 18:00 00:13 05:05 WBC RBC Hgb Hct MCV MCHC RDW Plt Count Lymph % (Auto) [place] % (Auto) Lymph # (Auto) [place] # (Auto) Seg Neutrophils % Seg Neuts % (Manual) Lymphocytes % (Manual) Monocytes % (Manual) Seg Neutrophils # Seg Neutrophils # Man Lymphocytes # (Manual) Monocytes # (Manual) Haptoglobin PT APTT D-Dimer Heparin Anti-Xa Level ABG pH 7.500 H ABG pO2 56.6 L ABG HCO3 ABG O2 Saturation ABG Base Excess ABG Hemoglobin 6.7 L Oxyhemoglobin 94.8 L Sodium 136 L Potassium 5.2 H Chloride Carbon Dioxide BUN 59 H Creatinine 2.6 H Glucose 138 H POC Glucose 109 H Calcium Phosphorus Magnesium Iron TIBC Ferritin Total Bilirubin AST ALT Lactate Dehydrogenase Total Creatine Kinase Troponin T C-Reactive Protein Albumin Urine WBC (Auto) Urine Creatinine Urine Total Protein Complement C3 Coronavirus (PCR) Hepatitis C Antibody Crossmatch 05/22/21 05/22/21 05/22/21 06:07 11:49 16:33 WBC RBC Hgb Hct MCV MCHC RDW Plt Count Lymph % (Auto) [place] % (Auto) Lymph # (Auto) [place] # (Auto) Seg Neutrophils % Seg Neuts % (Manual) Lymphocytes % (Manual) Monocytes % (Manual) Seg Neutrophils # Seg Neutrophils # Man Lymphocytes # (Manual) Monocytes # (Manual) Haptoglobin PT APTT D-Dimer Heparin Anti-Xa Level ABG pH ABG pO2 ABG HCO3 ABG O2 Saturation ABG Base Excess ABG Hemoglobin Oxyhemoglobin Sodium Potassium Chloride Carbon Dioxide BUN Creatinine Glucose POC Glucose 110 H 117 H 119 H Calcium Phosphorus Magnesium Iron TIBC Ferritin Total Bilirubin AST ALT Lactate Dehydrogenase Total Creatine Kinase Troponin T C-Reactive Protein Albumin Urine WBC (Auto) Urine Creatinine Urine Total Protein Complement C3 Coronavirus (PCR) Hepatitis C Antibody Crossmatch 05/23/21 05/23/21 05/23/21 04:48 04:48 07:12 WBC 21.1 H RBC 2.03 L Hgb 6.2 L Hct 19.4 L* MCV 96 H MCHC RDW 17.5 H Plt Count Lymph % (Auto) [place] % (Auto) Lymph # (Auto) [place] # (Auto) Seg Neutrophils % Seg Neuts % (Manual) Lymphocytes % (Manual) Monocytes % (Manual) Seg Neutrophils # Seg Neutrophils # Man Lymphocytes # (Manual) Monocytes # (Manual) Haptoglobin PT APTT D-Dimer Heparin Anti-Xa Level ABG pH ABG pO2 ABG HCO3 ABG O2 Saturation ABG Base Excess ABG Hemoglobin Oxyhemoglobin Sodium Potassium Chloride Carbon Dioxide BUN 62 H Creatinine 2.8 H Glucose 110 H POC Glucose Calcium Phosphorus Magnesium Iron TIBC Ferritin Total Bilirubin AST ALT Lactate Dehydrogenase Total Creatine Kinase Troponin T C-Reactive Protein Albumin Urine WBC (Auto) Urine Creatinine Urine Total Protein Complement C3 Coronavirus (PCR) Hepatitis C Antibody Crossmatch See Detail 05/23/21 05/23/21 05/23/21 11:19 14:15 16:12 WBC RBC Hgb Hct MCV MCHC RDW Plt Count Lymph % (Auto) [place] % (Auto) Lymph # (Auto) [place] # (Auto) Seg Neutrophils % Seg Neuts % (Manual) Lymphocytes % (Manual) Monocytes % (Manual) Seg Neutrophils # Seg Neutrophils # Man Lymphocytes # (Manual) Monocytes # (Manual) Haptoglobin PT APTT D-Dimer Heparin Anti-Xa Level ABG pH ABG pO2 294.7 H ABG HCO3 ABG O2 Saturation 99.5 H ABG Base Excess ABG Hemoglobin 6.5 L Oxyhemoglobin Sodium Potassium Chloride Carbon Dioxide BUN Creatinine Glucose POC Glucose 127 H 120 H Calcium Phosphorus Magnesium Iron TIBC Ferritin Total Bilirubin AST ALT Lactate Dehydrogenase Total Creatine Kinase Troponin T C-Reactive Protein Albumin Urine WBC (Auto) Urine Creatinine Urine Total Protein Complement C3 Coronavirus (PCR) Hepatitis C Antibody Crossmatch 05/23/21 05/23/21 05/23/21 16:30 16:30 18:54 WBC RBC Hgb Hct MCV MCHC RDW Plt Count Lymph % (Auto) [place] % (Auto) Lymph # (Auto) [place] # (Auto) Seg Neutrophils % Seg Neuts % (Manual) Lymphocytes % (Manual) Monocytes % (Manual) Seg Neutrophils # Seg Neutrophils # Man Lymphocytes # (Manual) Monocytes # (Manual) Haptoglobin 254 H PT APTT D-Dimer Heparin Anti-Xa Level ABG pH ABG pO2 ABG HCO3 ABG O2 Saturation ABG Base Excess ABG Hemoglobin Oxyhemoglobin Sodium Potassium Chloride Carbon Dioxide BUN Creatinine Glucose POC Glucose Calcium Phosphorus Magnesium Iron TIBC Ferritin Total Bilirubin AST ALT Lactate Dehydrogenase Total Creatine Kinase Troponin T C-Reactive Protein Albumin Urine WBC (Auto) 12.0 H Urine Creatinine 100.1 H Urine Total Protein Complement C3 Coronavirus (PCR) Hepatitis C Antibody Crossmatch 05/23/21 05/23/21 05/24/21 18:54 Unknown 00:11 WBC 21.7 H RBC 2.40 L Hgb 7.1 L Hct 22.9 L MCV 96 H MCHC 31 L RDW 16.8 H Plt Count Lymph % (Auto) [place] % (Auto) Lymph # (Auto) [place] # (Auto) Seg Neutrophils % Seg Neuts % (Manual) Lymphocytes % (Manual) Monocytes % (Manual) Seg Neutrophils # Seg Neutrophils # Man Lymphocytes # (Manual) Monocytes # (Manual) Haptoglobin PT APTT D-Dimer Heparin Anti-Xa Level ABG pH ABG pO2 ABG HCO3 ABG O2 Saturation ABG Base Excess ABG Hemoglobin Oxyhemoglobin Sodium Potassium Chloride Carbon Dioxide BUN Creatinine Glucose POC Glucose 110 H Calcium Phosphorus Magnesium Iron 10 L TIBC 151 L Ferritin Total Bilirubin AST ALT Lactate Dehydrogenase 311 H Total Creatine Kinase Troponin T C-Reactive Protein Albumin Urine WBC (Auto) Urine Creatinine Urine Total Protein Complement C3 Coronavirus (PCR) Hepatitis C Antibody Crossmatch 05/24/21 05/24/21 05/24/21 04:11 04:11 05:10 WBC 16.7 H RBC 2.19 L Hgb 6.4 L Hct 20.5 L MCV MCHC 31 L RDW 17.0 H Plt Count Lymph % (Auto) [place] % (Auto) Lymph # (Auto) [place] # (Auto) Seg Neutrophils % Seg Neuts % (Manual) Lymphocytes % (Manual) Monocytes % (Manual) Seg Neutrophils # Seg Neutrophils # Man Lymphocytes # (Manual) Monocytes # (Manual) Haptoglobin PT APTT D-Dimer Heparin Anti-Xa Level ABG pH ABG pO2 ABG HCO3 ABG O2 Saturation ABG Base Excess ABG Hemoglobin Oxyhemoglobin Sodium Potassium Chloride Carbon Dioxide BUN 78 H Creatinine 2.8 H Glucose 119 H POC Glucose 108 H Calcium Phosphorus 5.30 H Magnesium 2.60 H Iron TIBC Ferritin Total Bilirubin AST 152 H ALT 125 H Lactate Dehydrogenase Total Creatine Kinase Troponin T C-Reactive Protein Albumin 2.5 L Urine WBC (Auto) Urine Creatinine Urine Total Protein Complement C3 Coronavirus (PCR) Hepatitis C Antibody Crossmatch 05/24/21 05/25/21 05/25/21 09:55 04:25 04:25 WBC 13.8 H RBC 2.78 L Hgb 8.3 L Hct 25.6 L MCV MCHC RDW 16.2 H Plt Count Lymph % (Auto) [place] % (Auto) Lymph # (Auto) [place] # (Auto) Seg Neutrophils % Seg Neuts % (Manual) Lymphocytes % (Manual) Monocytes % (Manual) Seg Neutrophils # Seg Neutrophils # Man Lymphocytes # (Manual) Monocytes # (Manual) Haptoglobin PT APTT D-Dimer Heparin Anti-Xa Level ABG pH ABG pO2 141.9 H ABG HCO3 ABG O2 Saturation ABG Base Excess ABG Hemoglobin 6.5 L Oxyhemoglobin Sodium Potassium Chloride Carbon Dioxide BUN 76 H Creatinine 2.6 H Glucose 110 H POC Glucose Calcium 8.1 L Phosphorus Magnesium Iron TIBC Ferritin Total Bilirubin AST ALT Lactate Dehydrogenase Total Creatine Kinase Troponin T C-Reactive Protein Albumin Urine WBC (Auto) Urine Creatinine Urine Total Protein Complement C3 Coronavirus (PCR) Hepatitis C Antibody Crossmatch 05/25/21 05/25/21 05/25/21 05:19 09:40 17:11 WBC RBC Hgb Hct MCV MCHC RDW Plt Count Lymph % (Auto) [place] % (Auto) Lymph # (Auto) [place] # (Auto) Seg Neutrophils % Seg Neuts % (Manual) Lymphocytes % (Manual) Monocytes % (Manual) Seg Neutrophils # Seg Neutrophils # Man Lymphocytes # (Manual) Monocytes # (Manual) Haptoglobin PT APTT D-Dimer Heparin Anti-Xa Level ABG pH ABG pO2 150.9 H ABG HCO3 ABG O2 Saturation ABG Base Excess ABG Hemoglobin 7.0 L Oxyhemoglobin Sodium Potassium Chloride Carbon Dioxide BUN Creatinine Glucose POC Glucose 123 H 108 H Calcium Phosphorus Magnesium Iron TIBC Ferritin Total Bilirubin AST ALT Lactate Dehydrogenase Total Creatine Kinase Troponin T C-Reactive Protein Albumin Urine WBC (Auto) Urine Creatinine Urine Total Protein Complement C3 Coronavirus (PCR) Hepatitis C Antibody Crossmatch 05/25/21 05/26/21 05/26/21 23:37 05:02 07:09 WBC RBC Hgb Hct MCV MCHC RDW Plt Count Lymph % (Auto) [place] % (Auto) Lymph # (Auto) [place] # (Auto) Seg Neutrophils % Seg Neuts % (Manual) Lymphocytes % (Manual) Monocytes % (Manual) Seg Neutrophils # Seg Neutrophils # Man Lymphocytes # (Manual) Monocytes # (Manual) Haptoglobin PT APTT D-Dimer Heparin Anti-Xa Level ABG pH ABG pO2 ABG HCO3 ABG O2 Saturation ABG Base Excess ABG Hemoglobin Oxyhemoglobin Sodium Potassium Chloride Carbon Dioxide BUN 62 H Creatinine 2.1 H Glucose 112 H POC Glucose 117 H 112 H Calcium 8.2 L Phosphorus Magnesium Iron TIBC Ferritin Total Bilirubin AST ALT Lactate Dehydrogenase Total Creatine Kinase Troponin T C-Reactive Protein Albumin Urine WBC (Auto) Urine Creatinine Urine Total Protein Complement C3 Coronavirus (PCR) Hepatitis C Antibody Crossmatch 05/26/21 05/26/21 05/26/21 07:09 09:10 09:50 WBC 15.8 H RBC 3.21 L Hgb 9.2 L Hct 29.6 L MCV MCHC 31 L RDW 16.6 H Plt Count Lymph % (Auto) [place] % (Auto) Lymph # (Auto) [place] # (Auto) Seg Neutrophils % Seg Neuts % (Manual) Lymphocytes % (Manual) Monocytes % (Manual) Seg Neutrophils # Seg Neutrophils # Man Lymphocytes # (Manual) Monocytes # (Manual) Haptoglobin PT APTT D-Dimer Heparin Anti-Xa Level ABG pH ABG pO2 135.5 H ABG HCO3 ABG O2 Saturation ABG Base Excess ABG Hemoglobin 9.6 L Oxyhemoglobin Sodium Potassium Chloride Carbon Dioxide BUN Creatinine Glucose POC Glucose Calcium Phosphorus Magnesium Iron TIBC Ferritin Total Bilirubin AST ALT Lactate Dehydrogenase Total Creatine Kinase Troponin T C-Reactive Protein Albumin Urine WBC (Auto) 38.0 H Urine Creatinine Urine Total Protein Complement C3 Coronavirus (PCR) Hepatitis C Antibody Crossmatch 05/26/21 05/26/21 05/27/21 11:20 18:24 00:24 WBC RBC Hgb Hct MCV MCHC RDW Plt Count Lymph % (Auto) [place] % (Auto) Lymph # (Auto) [place] # (Auto) Seg Neutrophils % Seg Neuts % (Manual) Lymphocytes % (Manual) Monocytes % (Manual) Seg Neutrophils # Seg Neutrophils # Man Lymphocytes # (Manual) Monocytes # (Manual) Haptoglobin PT APTT D-Dimer Heparin Anti-Xa Level ABG pH ABG pO2 ABG HCO3 ABG O2 Saturation ABG Base Excess ABG Hemoglobin Oxyhemoglobin Sodium Potassium Chloride Carbon Dioxide BUN Creatinine Glucose POC Glucose 109 H 116 H 115 H Calcium Phosphorus Magnesium Iron TIBC Ferritin Total Bilirubin AST ALT Lactate Dehydrogenase Total Creatine Kinase Troponin T C-Reactive Protein Albumin Urine WBC (Auto) Urine Creatinine Urine Total Protein Complement C3 Coronavirus (PCR) Hepatitis C Antibody Crossmatch 05/27/21 05/27/21 05/27/21 05:12 07:47 07:47 WBC 15.5 H RBC 2.86 L Hgb 8.8 L Hct 26.1 L MCV MCHC RDW 16.1 H Plt Count Lymph % (Auto) [place] % (Auto) Lymph # (Auto) [place] # (Auto) Seg Neutrophils % Seg Neuts % (Manual) Lymphocytes % (Manual) Monocytes % (Manual) Seg Neutrophils # Seg Neutrophils # Man Lymphocytes # (Manual) Monocytes # (Manual) Haptoglobin PT APTT D-Dimer Heparin Anti-Xa Level ABG pH ABG pO2 ABG HCO3 ABG O2 Saturation ABG Base Excess ABG Hemoglobin Oxyhemoglobin Sodium Potassium Chloride 107.3 H Carbon Dioxide BUN 56 H Creatinine 1.8 H Glucose 108 H POC Glucose 108 H Calcium 8.1 L Phosphorus Magnesium Iron TIBC Ferritin Total Bilirubin AST ALT Lactate Dehydrogenase Total Creatine Kinase Troponin T C-Reactive Protein Albumin Urine WBC (Auto) Urine Creatinine Urine Total Protein Complement C3 Coronavirus (PCR) Hepatitis C Antibody Crossmatch 05/27/21 05/27/21 05/28/21 09:20 18:01 00:09 WBC RBC Hgb Hct MCV MCHC RDW Plt Count Lymph % (Auto) [place] % (Auto) Lymph # (Auto) [place] # (Auto) Seg Neutrophils % Seg Neuts % (Manual) Lymphocytes % (Manual) Monocytes % (Manual) Seg Neutrophils # Seg Neutrophils # Man Lymphocytes # (Manual) Monocytes # (Manual) Haptoglobin PT APTT D-Dimer Heparin Anti-Xa Level ABG pH ABG pO2 115.2 H ABG HCO3 ABG O2 Saturation ABG Base Excess ABG Hemoglobin 9.2 L Oxyhemoglobin Sodium Potassium Chloride Carbon Dioxide BUN Creatinine Glucose POC Glucose 109 H 114 H Calcium Phosphorus Magnesium Iron TIBC Ferritin Total Bilirubin AST ALT Lactate Dehydrogenase Total Creatine Kinase Troponin T C-Reactive Protein Albumin Urine WBC (Auto) Urine Creatinine Urine Total Protein Complement C3 Coronavirus (PCR) Hepatitis C Antibody Crossmatch 05/28/21 05/28/21 05/28/21 04:04 04:04 04:04 WBC 14.1 H RBC 2.87 L Hgb 8.6 L Hct 26.5 L MCV MCHC RDW 15.9 H Plt Count Lymph % (Auto) [place] % (Auto) Lymph # (Auto) [place] # (Auto) Seg Neutrophils % Seg Neuts % (Manual) 93.0 H Lymphocytes % (Manual) 2.0 L Monocytes % (Manual) Seg Neutrophils # Seg Neutrophils # Man 13.1 H Lymphocytes # (Manual) 0.3 L Monocytes # (Manual) Haptoglobin PT APTT D-Dimer Heparin Anti-Xa Level ABG pH ABG pO2 ABG HCO3 ABG O2 Saturation ABG Base Excess ABG Hemoglobin Oxyhemoglobin Sodium Potassium Chloride Carbon Dioxide BUN 54 H Creatinine 1.7 H Glucose 116 H POC Glucose Calcium 7.7 L Phosphorus Magnesium Iron TIBC Ferritin Total Bilirubin AST ALT Lactate Dehydrogenase Total Creatine Kinase Troponin T C-Reactive Protein 13.20 H Albumin Urine WBC (Auto) Urine Creatinine Urine Total Protein Complement C3 Coronavirus (PCR) Hepatitis C Antibody Crossmatch 05/28/21 05/28/21 05/28/21 05:32 12:06 17:30 WBC RBC Hgb Hct MCV MCHC RDW Plt Count Lymph % (Auto) [place] % (Auto) Lymph # (Auto) [place] # (Auto) Seg Neutrophils % Seg Neuts % (Manual) Lymphocytes % (Manual) Monocytes % (Manual) Seg Neutrophils # Seg Neutrophils # Man Lymphocytes # (Manual) Monocytes # (Manual) Haptoglobin PT APTT D-Dimer Heparin Anti-Xa Level ABG pH ABG pO2 ABG HCO3 ABG O2 Saturation ABG Base Excess ABG Hemoglobin Oxyhemoglobin Sodium Potassium Chloride Carbon Dioxide BUN Creatinine Glucose POC Glucose 119 H 112 H 114 H Calcium Phosphorus Magnesium Iron TIBC Ferritin Total Bilirubin AST ALT Lactate Dehydrogenase Total Creatine Kinase Troponin T C-Reactive Protein Albumin Urine WBC (Auto) Urine Creatinine Urine Total Protein Complement C3 Coronavirus (PCR) Hepatitis C Antibody Crossmatch 05/28/21 05/29/21 05/29/21 23:46 05:16 11:16 WBC 12.2 H RBC 2.94 L Hgb 8.7 L Hct 27.2 L MCV MCHC RDW 15.8 H Plt Count Lymph % (Auto) [place] % (Auto) Lymph # (Auto) [place] # (Auto) Seg Neutrophils % Seg Neuts % (Manual) Lymphocytes % (Manual) Monocytes % (Manual) Seg Neutrophils # Seg Neutrophils # Man Lymphocytes # (Manual) Monocytes # (Manual) Haptoglobin PT APTT D-Dimer Heparin Anti-Xa Level ABG pH ABG pO2 ABG HCO3 ABG O2 Saturation ABG Base Excess ABG Hemoglobin Oxyhemoglobin Sodium Potassium Chloride Carbon Dioxide BUN Creatinine Glucose POC Glucose 108 H 113 H Calcium Phosphorus Magnesium Iron TIBC Ferritin Total Bilirubin AST ALT Lactate Dehydrogenase Total Creatine Kinase Troponin T C-Reactive Protein Albumin Urine WBC (Auto) Urine Creatinine Urine Total Protein Complement C3 Coronavirus (PCR) Hepatitis C Antibody Crossmatch 05/29/21 05/29/21 05/29/21 11:16 17:25 23:26 WBC RBC Hgb Hct MCV MCHC RDW Plt Count Lymph % (Auto) [place] % (Auto) Lymph # (Auto) [place] # (Auto) Seg Neutrophils % Seg Neuts % (Manual) Lymphocytes % (Manual) Monocytes % (Manual) Seg Neutrophils # Seg Neutrophils # Man Lymphocytes # (Manual) Monocytes # (Manual) Haptoglobin PT APTT D-Dimer Heparin Anti-Xa Level ABG pH ABG pO2 ABG HCO3 ABG O2 Saturation ABG Base Excess ABG Hemoglobin Oxyhemoglobin Sodium Potassium Chloride Carbon Dioxide BUN 50 H Creatinine 1.5 H Glucose 117 H POC Glucose 115 H 110 H Calcium 8.0 L Phosphorus Magnesium Iron TIBC Ferritin Total Bilirubin AST ALT Lactate Dehydrogenase Total Creatine Kinase Troponin T C-Reactive Protein Albumin Urine WBC (Auto) Urine Creatinine Urine Total Protein Complement C3 Coronavirus (PCR) Hepatitis C Antibody Crossmatch 05/30/21 05/30/21 05/30/21 05:07 05:11 11:30 WBC RBC Hgb Hct MCV MCHC RDW Plt Count Lymph % (Auto) [place] % (Auto) Lymph # (Auto) [place] # (Auto) Seg Neutrophils % Seg Neuts % (Manual) Lymphocytes % (Manual) Monocytes % (Manual) Seg Neutrophils # Seg Neutrophils # Man Lymphocytes # (Manual) Monocytes # (Manual) Haptoglobin PT APTT D-Dimer Heparin Anti-Xa Level ABG pH ABG pO2 ABG HCO3 ABG O2 Saturation ABG Base Excess ABG Hemoglobin Oxyhemoglobin Sodium Potassium Chloride Carbon Dioxide BUN 55 H Creatinine 1.5 H Glucose 129 H POC Glucose 113 H 110 H Calcium 8.2 L Phosphorus Magnesium Iron TIBC Ferritin Total Bilirubin AST ALT Lactate Dehydrogenase Total Creatine Kinase Troponin T C-Reactive Protein Albumin Urine WBC (Auto) Urine Creatinine Urine Total Protein Complement C3 Coronavirus (PCR) Hepatitis C Antibody Crossmatch 05/30/21 05/31/21 05/31/21 17:53 04:11 04:11 WBC RBC 3.12 L Hgb 9.3 L Hct 28.8 L MCV MCHC RDW 16.1 H Plt Count Lymph % (Auto) [place] % (Auto) Lymph # (Auto) [place] # (Auto) Seg Neutrophils % Seg Neuts % (Manual) Lymphocytes % (Manual) Monocytes % (Manual) Seg Neutrophils # Seg Neutrophils # Man Lymphocytes # (Manual) Monocytes # (Manual) Haptoglobin PT APTT D-Dimer Heparin Anti-Xa Level ABG pH ABG pO2 ABG HCO3 ABG O2 Saturation ABG Base Excess ABG Hemoglobin Oxyhemoglobin Sodium Potassium Chloride Carbon Dioxide BUN 50 H Creatinine 1.4 H Glucose 117 H POC Glucose 107 H Calcium 8.0 L Phosphorus Magnesium Iron TIBC Ferritin Total Bilirubin AST ALT Lactate Dehydrogenase Total Creatine Kinase Troponin T C-Reactive Protein Albumin Urine WBC (Auto) Urine Creatinine Urine Total Protein Complement C3 Coronavirus (PCR) Hepatitis C Antibody Crossmatch 05/31/21 05/31/21 06/01/21 11:36 18:27 04:56 WBC RBC 3.14 L Hgb 9.1 L Hct 29.0 L MCV MCHC RDW 16.3 H Plt Count Lymph % (Auto) [place] % (Auto) Lymph # (Auto) [place] # (Auto) Seg Neutrophils % Seg Neuts % (Manual) Lymphocytes % (Manual) Monocytes % (Manual) Seg Neutrophils # Seg Neutrophils # Man Lymphocytes # (Manual) Monocytes # (Manual) Haptoglobin PT APTT D-Dimer Heparin Anti-Xa Level ABG pH ABG pO2 ABG HCO3 ABG O2 Saturation ABG Base Excess ABG Hemoglobin Oxyhemoglobin Sodium Potassium Chloride Carbon Dioxide BUN Creatinine Glucose POC Glucose 109 H 111 H Calcium Phosphorus Magnesium Iron TIBC Ferritin Total Bilirubin AST ALT Lactate Dehydrogenase Total Creatine Kinase Troponin T C-Reactive Protein Albumin Urine WBC (Auto) Urine Creatinine Urine Total Protein Complement C3 Coronavirus (PCR) Hepatitis C Antibody Crossmatch 06/01/21 06/01/21 06/01/21 04:56 06:10 11:04 WBC RBC Hgb Hct MCV MCHC RDW Plt Count Lymph % (Auto) [place] % (Auto) Lymph # (Auto) [place] # (Auto) Seg Neutrophils % Seg Neuts % (Manual) Lymphocytes % (Manual) Monocytes % (Manual) Seg Neutrophils # Seg Neutrophils # Man Lymphocytes # (Manual) Monocytes # (Manual) Haptoglobin PT APTT D-Dimer Heparin Anti-Xa Level ABG pH ABG pO2 ABG HCO3 ABG O2 Saturation ABG Base Excess ABG Hemoglobin Oxyhemoglobin Sodium Potassium Chloride 108.4 H Carbon Dioxide BUN 49 H Creatinine Glucose 113 H POC Glucose 107 H 122 H Calcium 8.0 L Phosphorus Magnesium Iron TIBC Ferritin Total Bilirubin AST ALT Lactate Dehydrogenase Total Creatine Kinase Troponin T C-Reactive Protein Albumin Urine WBC (Auto) Urine Creatinine Urine Total Protein Complement C3 Coronavirus (PCR) Hepatitis C Antibody Crossmatch 06/01/21 06/01/21 06/02/21 15:50 23:19 04:06 WBC RBC Hgb Hct MCV MCHC RDW Plt Count Lymph % (Auto) [place] % (Auto) Lymph # (Auto) [place] # (Auto) Seg Neutrophils % Seg Neuts % (Manual) Lymphocytes % (Manual) Monocytes % (Manual) Seg Neutrophils # Seg Neutrophils # Man Lymphocytes # (Manual) Monocytes # (Manual) Haptoglobin PT APTT D-Dimer Heparin Anti-Xa Level ABG pH ABG pO2 ABG HCO3 ABG O2 Saturation ABG Base Excess ABG Hemoglobin Oxyhemoglobin Sodium Potassium Chloride Carbon Dioxide BUN 46 H Creatinine Glucose 121 H POC Glucose 111 H 117 H Calcium Phosphorus Magnesium Iron TIBC Ferritin Total Bilirubin AST ALT Lactate Dehydrogenase Total Creatine Kinase Troponin T C-Reactive Protein Albumin Urine WBC (Auto) Urine Creatinine Urine Total Protein Complement C3 Coronavirus (PCR) Hepatitis C Antibody Crossmatch 06/02/21 06/02/21 06/02/21 05:08 11:06 15:40 WBC RBC Hgb Hct MCV MCHC RDW Plt Count Lymph % (Auto) [place] % (Auto) Lymph # (Auto) [place] # (Auto) Seg Neutrophils % Seg Neuts % (Manual) Lymphocytes % (Manual) Monocytes % (Manual) Seg Neutrophils # Seg Neutrophils # Man Lymphocytes # (Manual) Monocytes # (Manual) Haptoglobin PT APTT D-Dimer Heparin Anti-Xa Level ABG pH ABG pO2 ABG HCO3 ABG O2 Saturation ABG Base Excess ABG Hemoglobin Oxyhemoglobin Sodium Potassium Chloride Carbon Dioxide BUN Creatinine Glucose POC Glucose 120 H 119 H 125 H Calcium Phosphorus Magnesium Iron TIBC Ferritin Total Bilirubin AST ALT Lactate Dehydrogenase Total Creatine Kinase Troponin T C-Reactive Protein Albumin Urine WBC (Auto) Urine Creatinine Urine Total Protein Complement C3 Coronavirus (PCR) Hepatitis C Antibody Crossmatch 06/02/21 06/03/21 06/03/21 23:27 04:15 04:15 WBC RBC 3.40 L Hgb 10.0 L Hct 31.3 L MCV MCHC RDW 16.0 H Plt Count 463 H Lymph % (Auto) [place] % (Auto) Lymph # (Auto) [place] # (Auto) Seg Neutrophils % Seg Neuts % (Manual) Lymphocytes % (Manual) Monocytes % (Manual) Seg Neutrophils # Seg Neutrophils # Man Lymphocytes # (Manual) Monocytes # (Manual) Haptoglobin PT APTT D-Dimer Heparin Anti-Xa Level ABG pH ABG pO2 ABG HCO3 ABG O2 Saturation ABG Base Excess ABG Hemoglobin Oxyhemoglobin Sodium Potassium Chloride Carbon Dioxide BUN 44 H Creatinine Glucose 115 H POC Glucose 115 H Calcium Phosphorus Magnesium Iron TIBC Ferritin Total Bilirubin AST ALT Lactate Dehydrogenase Total Creatine Kinase Troponin T C-Reactive Protein Albumin Urine WBC (Auto) Urine Creatinine Urine Total Protein Complement C3 Coronavirus (PCR) Hepatitis C Antibody Crossmatch 06/03/21 06/03/21 06/03/21 10:52 16:32 23:37 WBC RBC Hgb Hct MCV MCHC RDW Plt Count Lymph % (Auto) [place] % (Auto) Lymph # (Auto) [place] # (Auto) Seg Neutrophils % Seg Neuts % (Manual) Lymphocytes % (Manual) Monocytes % (Manual) Seg Neutrophils # Seg Neutrophils # Man Lymphocytes # (Manual) Monocytes # (Manual) Haptoglobin PT APTT D-Dimer Heparin Anti-Xa Level ABG pH ABG pO2 ABG HCO3 ABG O2 Saturation ABG Base Excess ABG Hemoglobin Oxyhemoglobin Sodium Potassium Chloride Carbon Dioxide BUN Creatinine Glucose POC Glucose 113 H 106 H 114 H Calcium Phosphorus Magnesium Iron TIBC Ferritin Total Bilirubin AST ALT Lactate Dehydrogenase Total Creatine Kinase Troponin T C-Reactive Protein Albumin Urine WBC (Auto) Urine Creatinine Urine Total Protein Complement C3 Coronavirus (PCR) Hepatitis C Antibody Crossmatch 06/04/21 06/04/21 06/04/21 05:31 17:28 23:19 WBC RBC Hgb Hct MCV MCHC RDW Plt Count Lymph % (Auto) [place] % (Auto) Lymph # (Auto) [place] # (Auto) Seg Neutrophils % Seg Neuts % (Manual) Lymphocytes % (Manual) Monocytes % (Manual) Seg Neutrophils # Seg Neutrophils # Man Lymphocytes # (Manual) Monocytes # (Manual) Haptoglobin PT APTT D-Dimer Heparin Anti-Xa Level ABG pH ABG pO2 ABG HCO3 ABG O2 Saturation ABG Base Excess ABG Hemoglobin Oxyhemoglobin Sodium Potassium Chloride Carbon Dioxide BUN Creatinine Glucose POC Glucose 121 H 106 H 106 H Calcium Phosphorus Magnesium Iron TIBC Ferritin Total Bilirubin AST ALT Lactate Dehydrogenase Total Creatine Kinase Troponin T C-Reactive Protein Albumin Urine WBC (Auto) Urine Creatinine Urine Total Protein Complement C3 Coronavirus (PCR) Hepatitis C Antibody Crossmatch 06/05/21 06/05/21 06/05/21 04:24 04:24 05:43 WBC 11.1 H RBC 3.23 L Hgb 9.9 L Hct 29.4 L MCV MCHC RDW 16.3 H Plt Count 501 H Lymph % (Auto) [place] % (Auto) Lymph # (Auto) [place] # (Auto) Seg Neutrophils % Seg Neuts % (Manual) Lymphocytes % (Manual) Monocytes % (Manual) Seg Neutrophils # Seg Neutrophils # Man Lymphocytes # (Manual) Monocytes # (Manual) Haptoglobin PT APTT D-Dimer Heparin Anti-Xa Level ABG pH ABG pO2 ABG HCO3 ABG O2 Saturation ABG Base Excess ABG Hemoglobin Oxyhemoglobin Sodium Potassium Chloride Carbon Dioxide BUN 41 H Creatinine Glucose 120 H POC Glucose 106 H Calcium Phosphorus Magnesium Iron TIBC Ferritin Total Bilirubin AST ALT Lactate Dehydrogenase Total Creatine Kinase Troponin T C-Reactive Protein Albumin Urine WBC (Auto) Urine Creatinine Urine Total Protein Complement C3 Coronavirus (PCR) Hepatitis C Antibody Crossmatch 06/05/21 10:52 WBC RBC Hgb Hct MCV MCHC RDW Plt Count Lymph % (Auto) [place] % (Auto) Lymph # (Auto) [place] # (Auto) Seg Neutrophils % Seg Neuts % (Manual) Lymphocytes % (Manual) Monocytes % (Manual) Seg Neutrophils # Seg Neutrophils # Man Lymphocytes # (Manual) Monocytes # (Manual) Haptoglobin PT APTT D-Dimer Heparin Anti-Xa Level ABG pH ABG pO2 ABG HCO3 ABG O2 Saturation ABG Base Excess ABG Hemoglobin Oxyhemoglobin Sodium Potassium Chloride Carbon Dioxide BUN Creatinine Glucose POC Glucose 108 H Calcium Phosphorus Magnesium Iron TIBC Ferritin Total Bilirubin AST ALT Lactate Dehydrogenase Total Creatine Kinase Troponin T C-Reactive Protein Albumin Urine WBC (Auto) Urine Creatinine Urine Total Protein Complement C3 Coronavirus (PCR) Hepatitis C Antibody Crossmatch Chest x-ray: image reviewed Allied health notes reviewed: RT
--- NOTE | 2021-06-05 14:00 | Progress Note ---
Assessment and Plan Assessment and plan: This is a homeless 56-year-old male with past medical history of nicotine and cocaine abuse, atrial fibrillation, hypertension and chronic medication noncompliance admitted for acute hypoxic respiratory failure 2/2 COVID pneumonia s/p X3 intubation. Remains in the ICU on ventilatory support. Hospital Course to Date: 05/04/2021. Cardiology was considering patient for [employer]. However, patient with elevated creatinine therefore will hold off on cath evaluation. Nephrology consultation for acute kidney injury. Etiology likely secondary to vasomotor nephropathy/dehydration. We will start IV fluid hydration. Check renal ultrasound to rule out obstructive uropathy. We will resume home medications for the accelerated hypertension 05/05/2021. Echocardiogram reveals EF 35-40% with moderate concentric left ventricular hypertrophy. Moderate global hypokinesis of left ventricle. Mild mitral regurgitation. Mild pulmonary hypertension. Troponins are believed to be elevated in the setting of acute kidney injury. No beta-blockers due to cocaine use continue heparin and nitro drip. Continue CIWA protocol. Await urine studies 05/06/2021. Patient decompensated yesterday with worsening respiratory failure and difficulty to protect airway. Patient was breathing sonorously, and hypoxic. Patient was intubated and currently is on mechanical ventilation. Patient with AC mode ventilation rate of 20, tidal volume 450, FiO2 40% and PEEP of 6. COVID PCR testing on 05/05/2021 was found to be positive. Echocardiogram completed on this admission shows worsening EF from August 2020. Echocardiogram now reveals moderate concentric left ventricular hypertrophy with moderate global hypokinesis and EF of 35-40%. Mild pulmonary hypertension. 05/08: Continue current management, renal stable, LFTs stable and if improved will start on statin therapy. 05/09: Patient is febrile, will panculture, PSV today. CRP pending. Mucoid discharge noted from meatus which was sent for culture. Hypernatremia persists, free water flushes increased 05/10: PSV trial per [facility], T-max 102.3, given mildly elevated procalcitonin started on ceftriaxone 2 g every 24 for 2 days per ID. Overnight patient had atrial fibrillation which was treated with Cardizem drip and converted to sinus rhythm. Metoprolol p.o. increased to 3 times daily. 05/11: Patient still running fevers and if still febrile tomorrow will escalate to cefepime per ID as he is currently on ceftriaxone, CCM attempted PSV but patient became agitated and was switched back to pressure control. Lower extremity ultrasound shows acute DVT and started on heparin drip. Started on scheduled Librium. Patient remains with hypernatremia and elevated creatinine and on IV fluids. Free water flushes adjusted. Started on vancomycin today 05/12: Patient placed on pressure support trial without fentanyl, hypernatremia improving, hyperkalemia noted. Slight improvement to renal function. 05/13: Patient was extubated today, ID change antibiotics to Zosyn for Enterococcus, was started tapering Librium in the morning, renal function slightly improved. Possible transfer to floor tomorrow. ST evaluation for swallow ordered. 05/14: Patient became hypoglycemic overnight and started on dextrose IV fluids. Accu-Chek fingersticks have been low but on a.m. BMP patient blood glucose is 100. Other BMP pending. Feeding tube replaced due to need for enteral access and patient being severely confused. Renal functions remains the same. Upon confirmation will restart tube feedings, p.o. medications and free water flu shes. 05/15: Remains confused/somnolent on my encounter. Librium taper in 24hrs per PCCM recs. Remains hypertensive. Added amlodipine 10 mg NG and labetalol prn. ST eval today but doubt he will participate. Potassium replaced. Renal function improving overall, however, hypernatremic. Inc TF FWF to 250 cc q4hr. 05/16: Respiratory distress this AM, hypoxic in 60's not protecting airway. Required intubation, patient now ICU patient. Reduce fluid to FWF only, IVF d/c off jun. CXR ordered demonstrates pulmonary edema. Lasix 40 mg IV bid ordered. Troponin elevated, continue heparin gtt. Would recommend decreasing sedating medications at this point, agree with librium taper. 05/17: Patient remains on the vent and sedated, RASS -3. Plan for possible sedation vacation today. D/w CCM plan to wean for possible extubation on the vent. 22: Tolerated 4hrs of sedation vacation yesterday, on low dose fentanyl this am. Patient is tolerating PST this am. Plan to wean off sedation and wean vent setting for possible extubation today. 3: s/p extubation now stable on 3L NC. Lethargic this am, will decreased Seroquel. Speech consult for swallow eval, continue enteral nutrition via NGT for now. Hypertensive throughout the night, Norvac added. Remains on heparin gtt for DVT, might need to transition to PO AC, will d/w CCM. Patient is stable for transfer to [facility] 05/20: Continue sepsis work up considering fever, aspiration precautions. Discussed with nursing staff will hold am seroquel. Continue tube feed. RENAL Function remains relatively stable, possible has peaked. 05/21: Patient seen and examined, resting but still with mild increase wob, CXR concerning with right lobar infiltrate, continue antibiotics, will give kayxalate in addition due to hyperkalemia, Will discuss with ID due to rising luekocytosis possible worsening sepsis. 05/22: Patient remains on BIPAP, still sedated appearing, cxr concerning for possible aspiration, unfortunately still worsening renal status. Will continue abx and continue collaboration with pulmonary team to ensure no over sedation. Continue abx, will add kayaxlate 05/23: Patient noted to have severe anemia today, will initiate GI work up and also Hemolysis work up. Will discuss with Vascular about possible IVC filter placement. Continue BIPAP, goal is to see if we can avert re-intubation. Transfuse 1 UNIT PRBC, Will discuss with Pulmonary about holding Eliquis for now. Renal failure still ongoing. 05/24: Patient had a positive occult and was anemic again today and received PRBC. GI was consulted. Repeat Dopplers are negative for DVT vascular recommends a CT/SQ heparin if tolerated and nephrology would like to increase IV fluids per FeNa results. Decrease metoprolol, seroquel and librium. surgery consult for trach/peg 05/25: RT decreased FiO2. GI signed off, Cr slightly improved, Anemia improved. Tmax 101.4 noted, abx per ID. 05/26: Patient had a temperature spike and was recultured, no plan today changes made as patient continues to breathe over the vent, one time dose of fent patch, repeat dopllar in 1 week per [facility], miralax q hs 05/27: Added vancomycin per ID, started CPAP trials, prophylactic heparin, IV fl uids stopped per ID. 05/28: No acute events reported overnight, T-max 100.6, slight improvement to B UN/creatinine. awaiting trach & PEG 2/13: Creatinine continues trending down, remains on minimal vent settings. CPAP as tolerated. 05/30: Patient remains lethargic, opened eyes and tracking this am. Librium will end tonight and decrease seroquel for now. PRN analgesics added for pain management. Patient remains with intermittent fevers, BLE doppler neg for DVT, recent cultures with NGTD, continue current IV abx per ID. LUE swelling noted, LUE doppler pending. Trach and PEG is now on hold, case management is trying to get in contact with a living relative for consent. 05/31: Low dose sedation initiated yesterday due to increase work of breathing and high RR. Patient is stable this am, appears comfortable, tolerating PST. LUE doppler noted with superficial thrombosis in the left cephalic and basilic veins, continue AC- heparin SubQ. 06/01: Off sedation this am for sedation vacation. Still drowsy, however, more alert and following simple commands. Seroquel held overnight and this am, will D/C for now. Tolerating PST this am 06/02: Back on low dose fentanyl, remains awake and tracking. Continue to tolerate PST this am. Still no living relatives have been located for patient at this time. This is day-10 since reintubation, d/w CCM possible two physicians consent for Trach and PEG is warranted at this time since we can't get in contact with a living relative and the dow of stated process is still pending. 06/03: HUSSEIN overnight. Patient's brother, Mingo Harrison, was located and visited patient today. Patient's condition and status was thoroughly discuss to patient's family by the attending at the bedside. Patient's brother verbalized understanding of the info given, however, he would like 24hrs or so to discuss everything with his other brother before making a decision. Patient remains a full code and we will hold off on re-consulting General Surgery until a final d ecision is made. Continue daily PST as tolerated. Patient next of kin- Mingo Harrison [phone]. 06/04: HUSSEIN overnight. Patient's family denied trach and PEG and opted for comfort care/Hospice. Case management to arrange possible placement to inpatient hospice. Continue daily PST as tolerated 06/05: Continue daily PST as tolerated and supportive measures. Plan for possible inpatient hospice, case management to arrange. Assessment and Plan #Neuro: Metabolic encephalopathy #Polysubstance Abuse -UDS positive for amphetamines -On CICA protocol -Librium end tonight -Seroquel on hold -Monitor QTc -Avoid delirium -PRN analgesia added for pain management -We will need cessation counseling when appropriate #Cardio:Heart failure reduced EF #Cardiomyopathy #Paroxysmal atrial fibrillation #S/p hypertensive emergency, h/o HTN -Continue beta-sylvia, aspirin, statin, hydral, titrate as needed -Cardiology consulted, appreciate recommendations -Echo 05/04/2021-EF 35 to 40%. Moderate concentric LVH. Moderate global hypokinesis of left ventricle. Mild mitral regurgitation. Mild pulmonary hypertension. -Echocardiogram reviewed (08/27/2020): LVEF is 50 to 55%. Mild to moderate concentric LVF. Severe diastolic dysfunction is present (restrictive filling). Right ventricle is mildly hypokinetic. RVSP is 48 mmHg. No valvular abnormalities. -S/p Cardizem drip for atrial fibrillation -Blood pressure monitoring per protocol #Respiratory:Acute Hypoxic respiratory failure -S/p X3 intubation -CCM consulted, appreciate recommendations -Intubated on 05/05 in the ED and extubated 05/13, Re-intubated on 05/16 and Extubated on 05/18 -Reintubated 05/23 -Vent setting:PRVC-25%,6,16,450 -CCM consulted, appreciate recommendations -VAP bundle addressed -Aspiration precaution HOB above 30 -Daily SBT and SAT trials as tolerated -PRN ABG and CXR per CCM -Continue SPO2 monitoring for SPO2 goal above 92% -Need to be trach and PEG- Currently on hold, trying to get in contact with a living relative for consent #Acute kidney injury likely secondary to vasomotor nephropathy -Nephrology consulted, appreciate recommendations -Renal ultrasound completed: 1.7 hyper echoic mass within the left upper pole, continue to monitor and follow-up with CT once stable -Strict intake and output -Avoid nephrotoxic medications; Renally dose medications -Monitor and replace electrolytes as needed -Trend BMP #Transaminitis, h/o hepatitis C -LFT with some mild improvement -Continue to trend LFTs #ID:Severe COVID-19 pneumonia, Enterobacter aerogenes PNA, s/p Enterococcus faecalis UTI -Infectious disease consulted, appreciate recommendations -COVID-19 PCR positive -s/p droplet/precautions for 21 days -Not a candidate for remdesivir given acute kidney injury -s/p Dexamethasone for 10 days -Anticoagulation per hospital protocol -Trend COVID-19 from 2 markers (ferritin, D-dimer, CRP, LDH) -05/09 urine culture with Enterococcus faecalis -05/16 tracheal aspirate with Enterobacter aerogenes -per ID Due to persistent fevers switched cefepime to IV ertapenem renally adjusted 05/24 -GC negative -f/u culture data -re-cultured 05/26 #Heme: Anemia, Acute DVT (resolved) -Bilateral lower extremity Doppler ultrasound shows acute DVT -heparin gtt converted to DOAC but now d/c -vascular surgery consulted for possible IVC filter placement, appreciate recommendations -repeat doppler shows no DVT -05/30 LUE doppler noted with superficial thrombosis in the left cephalic and basilic veins -subq heparin for prophylaxis -Pulmonary perfusion study showed low probability of pulmonary embolism -S/p 3 unit PRBC -Trend CBC -Transfuse for hemoglobin less than 7 The high probability of a clinically significant, sudden or life threatening deterioration of the [cardio/resp] system(s) required my full and direct attention, intervention and personal management. The aggregate critical care time was [60] minutes. This time is in addition to time spent performing reported procedures but includes the following: [x] Data Review and interpretation [x] Patient assessment and monitoring of vital signs [x] Documentation [x] Medication orders and management Disposition Plan: ICU Total Time Spent with Patient (Minutes): 60 History Interval history: Patient seen and examined at the bedside. Remains on the vent and on fentanyl. Open eyes spontaneously and tracking. Per RN patient got really agitated this am which resolved once sedation was increased. Otherwise, HUSSEIN overnight Hospitalist Physical - Constitutional Vitals: Temp Pulse Resp BP Pulse Ox 98.9 F 65 15 118/83 99 06/05/21 11:22 06/05/21 11:20 06/05/21 11:20 06/05/21 11:20 06/05/21 11:20 General appearance: Present: no acute distress, other (Intubated) - EENT Eyes: Present: PERRL ENT: hearing intact - Respiratory Respiratory effort: normal Respiratory: bilateral: rhonchi - Cardiovascular Rhythm: regular Heart Sounds: Present: S1 & S2 - Extremities Extremities: no ischemia, pulses intact, pulses symmetrical Peripheral Pulses: within normal limits - Abdominal General gastrointestinal: soft, non-distended, normal bowel sounds - Integumentary Integumentary: Present: warm, dry - Psychiatric Psychiatric: other (BRISA) - Neurologic Neurologic: moves all extremities, other (Intubated and sedated) - Allied Health Allied health notes reviewed: nursing HEART Score - HEART Score EKG: Non-specific Age: 45-65 Risk factors: 1-2 risk factors Troponin: Troponin T 0.400 ng/mL (0.00-0.029) H* D 05/16/21 18:40 Troponin: 1-3x normal limit - Critical Actions Critical Actions: 4-6 pts:12-16.6% risk of adverse cardiac event. Should be admitted Results - Labs CBC & Chem 7: 06/05/21 04:24 06/05/21 04:24 Labs: Laboratory Last Values WBC 11.1 K/mm3 (4.5-11.0) H 06/05/21 04:24 RBC 3.23 M/mm3 (3.65-5.03) L 06/05/21 04:24 Hgb 9.9 gm/dl (11.8-15.2) L 06/05/21 04:24 Hct 29.4 % (35.5-45.6) L 06/05/21 04:24 MCV 91 fl (84-94) 06/05/21 04:24 MCH 31 pg (28-32) 06/05/21 04:24 MCHC 34 % (32-34) 06/05/21 04:24 RDW 16.3 % (13.2-15.2) H 06/05/21 04:24 Plt Count 501 K/mm3 (140-440) H 06/05/21 04:24 Lymph % (Auto) [employer] [place] 05/16/21 10:21 [place] % (Auto) [employer] [place] 05/16/21 10:21 Eos % (Auto) [employer] [place] 05/16/21 10:21 Baso % (Auto) [employer] [place] 05/16/21 10:21 Lymph # (Auto) [employer] [place] 05/16/21 10:21 [place] # (Auto) [employer] [place] 05/16/21 10:21 Eos # (Auto) [employer] [place] 05/16/21 10:21 Baso # (Auto) [employer] [place] 05/16/21 10:21 Add Manual Diff Complete 05/28/21 04:04 Total Counted 100 05/28/21 04:04 Seg Neutrophils % [employer] [place] 05/16/21 10:21 Seg Neuts % (Manual) 93.0 % (40.0-70.0) H 05/28/21 04:04 Band Neutrophils % 1.0 % 05/28/21 04:04 Lymphocytes % (Manual) 2.0 % (13.4-35.0) L 05/28/21 04:04 Reactive Lymphs % (Man) 0 % 05/28/21 04:04 Monocytes % (Manual) 4.0 % (0.0-7.3) 05/28/21 04:04 Eosinophils % (Manual) 0 % (0.0-4.3) 05/28/21 04:04 Basophils % (Manual) 0 % (0.0-1.8) 05/28/21 04:04 Metamyelocytes % 0 % 05/28/21 04:04 Myelocytes % 0 % 05/28/21 04:04 Promyelocytes % 0 % 05/28/21 04:04 Blast Cells % 0 % 05/28/21 04:04 Nucleated RBC % Not Reportable 05/28/21 04:04 Seg Neutrophils # [employer] [place] 05/16/21 10:21 Seg Neutrophils # Man 13.1 K/mm3 (1.8-7.7) H 05/28/21 04:04 Band Neutrophils # 0.1 K/mm3 05/28/21 04:04 Lymphocytes # (Manual) 0.3 K/mm3 (1.2-5.4) L 05/28/21 04:04 Abs React Lymphs (Man) 0.0 K/mm3 05/28/21 04:04 Monocytes # (Manual) 0.6 K/mm3 (0.0-0.8) 05/28/21 04:04 Eosinophils # (Manual) 0.0 K/mm3 (0.0-0.4) 05/28/21 04:04 Basophils # (Manual) 0.0 K/mm3 (0.0-0.1) 05/28/21 04:04 Metamyelocytes # 0.0 K/mm3 05/28/21 04:04 Myelocytes # 0.0 K/mm3 05/28/21 04:04 Promyelocytes # 0.0 K/mm3 05/28/21 04:04 Blast Cells # 0.0 K/mm3 05/28/21 04:04 WBC Morphology Not Reportable 05/28/21 04:04 Hypersegmented Neuts Not Reportable 05/28/21 04:04 Hyposegmented Neuts Not Reportable 05/28/21 04:04 Hypogranular Neuts Not Reportable 05/28/21 04:04 Smudge Cells Not Reportable 05/28/21 04:04 Toxic Granulation Not Reportable 05/28/21 04:04 Toxic Vacuolation Not Reportable 05/28/21 04:04 Dohle Bodies Not Reportable 05/28/21 04:04 Pelger-Huet Anomaly Not Reportable 05/28/21 04:04 Jesse Rods Not Reportable 05/28/21 04:04 Platelet Estimate Consistent w auto 05/28/21 04:04 Clumped Platelets Not Reportable 05/28/21 04:04 Plt Clumps, EDTA Not Reportable 05/28/21 04:04 Large Platelets Not Reportable 05/28/21 04:04 Giant Platelets Not Reportable 05/28/21 04:04 Platelet Satelliting Not Reportable 05/28/21 04:04 Plt Morphology Comment Not Reportable 05/28/21 04:04 RBC Morphology Not Reportable 05/28/21 04:04 Dimorphic RBCs Not Reportable 05/28/21 04:04 Polychromasia Not Reportable 05/28/21 04:04 Hypochromasia Not Reportable 05/28/21 04:04 Poikilocytosis Not Reportable 05/28/21 04:04 Anisocytosis 1+ 05/28/21 04:04 Microcytosis Not Reportable 05/28/21 04:04 Macrocytosis Not Reportable 05/28/21 04:04 Spherocytes Not Reportable 05/28/21 04:04 Pappenheimer Bodies Not Reportable 05/28/21 04:04 Sickle Cells Not Reportable 05/28/21 04:04 Target Cells Not Reportable 05/28/21 04:04 Tear Drop Cells Not Reportable 05/28/21 04:04 Ovalocytes Not Reportable 05/28/21 04:04 Helmet Cells Not Reportable 05/28/21 04:04 [place] Bodies Not Reportable 05/28/21 04:04 [place] Rings Not Reportable 05/28/21 04:04 [place] Cells Not Reportable 05/28/21 04:04 Bite Cells Not Reportable 05/28/21 04:04 Crenated Cell Not Reportable 05/28/21 04:04 Elliptocytes Not Reportable 05/28/21 04:04 Acanthocytes (Spur) Not Reportable 05/28/21 04:04 Rouleaux Not Reportable 05/28/21 04:04 Hemoglobin C Crystals Not Reportable 05/28/21 04:04 Schistocytes Not Reportable 05/28/21 04:04 Malaria parasites Not Reportable 05/28/21 04:04 Tomi Bodies Not Reportable 05/28/21 04:04 Haptoglobin 254 mg/dL (43-212) H 05/23/21 18:54 Hem Pathologist Commnt No 05/28/21 04:04 PT 14.9 Sec. (12.2-14.9) 05/25/21 04:25 INR 1.05 (0.87-1.13) 05/25/21 04:25 APTT 72.5 Sec. (24.2-36.6) H* 05/19/21 19:36 D-Dimer 2730.61 ng/mlDDU (0-234) H 05/12/21 07:19 Heparin Anti-Xa Level 0.47 U.I./ml (0.3-0.7) 05/19/21 05:23 ABG pH 7.443 pH Units (7.350-7.450) 05/27/21 09:20 ABG pCO2 38.8 mm Hg 05/27/21 09:20 ABG pO2 115.2 mm Hg (80.0-90.0) H 05/27/21 09:20 ABG HCO3 25.9 mmol/L (20.0-26.0) 05/27/21 09:20 ABG O2 Saturation 98.3 % (95.0-99.0) 05/27/21 09:20 ABG O2 Content 12.5 (0.0-44) 05/27/21 09:20 ABG Base Excess 1.7 mmol/L (-2.0-3.0) 05/27/21 09:20 ABG Hemoglobin 9.2 gm/dl (14.0-18.0) L 05/27/21 09:20 ABG Carboxyhemoglobin 2.2 % (0.0-5.0) 05/27/21 09:20 ABG Methemoglobin 0.7 % (0.0-1.5) 05/27/21 09:20 Oxyhemoglobin 95.4 % (95.0-99.0) 05/27/21 09:20 FiO2 30 % 05/27/21 09:20 Sodium 139 mmol/L (137-145) 06/05/21 04:24 Potassium 4.0 mmol/L (3.6-5.0) 06/05/21 04:24 Chloride 101.6 mmol/L (98-107) 06/05/21 04:24 Carbon Dioxide 25 mmol/L (22-30) 06/05/21 04:24 Anion Gap 16 mmol/L 06/05/21 04:24 BUN 41 mg/dL (9-20) H 06/05/21 04:24 Creatinine 1.1 mg/dL (0.8-1.3) 06/05/21 04:24 Estimated GFR > 60 ml/min 06/05/21 04:24 BUN/Creatinine Ratio 37 % 06/05/21 04:24 Glucose 120 mg/dL (75-100) H 06/05/21 04:24 POC Glucose 108 mg/dL (70-105) H 06/05/21 10:52 Lactic Acid 0.90 mmol/L (0.7-2.0) 05/20/21 09:17 Calcium 8.5 mg/dL (8.4-10.2) 06/05/21 04:24 Phosphorus 3.70 mg/dL (2.5-4.5) 06/01/21 04:56 Magnesium 2.10 mg/dL (1.7-2.3) 06/01/21 04:56 Iron 10 ug/dL (49-181) L 05/23/21 Unknown TIBC 151 mcg/dL (250-450) L 05/23/21 Unknown Ferritin 640.2 ng/mL (30.0-300.0) H 05/12/21 07:19 Total Bilirubin 0.50 mg/dL (0.1-1.2) 05/24/21 04:11 AST 152 units/L (5-40) H 05/24/21 04:11 ALT 125 units/L (7-56) H 05/24/21 04:11 Alkaline Phosphatase 72 units/L (35-129) 05/24/21 04:11 Lactate Dehydrogenase 311 units/L (91-180) H 05/23/21 Unknown Total Creatine Kinase 406 units/L (55-170) H 05/04/21 08:42 Troponin T 0.400 ng/mL (0.00-0.029) H* D 05/16/21 18:40 C-Reactive Protein 13.20 mg/dL (0.00-1.30) H 05/28/21 04:04 Total Protein 6.6 g/dL (6.3-8.2) 05/24/21 04:11 Albumin 2.5 g/dL (3.9-5) L 05/24/21 04:11 Albumin/Globulin Ratio 0.6 % 05/24/21 04:11 Triglycerides 144 mg/dL (2-149) 05/10/21 04:57 Cholesterol 140 mg/dL (50-199) 05/04/21 07:25 LDL Cholesterol Direct 89 mg/dL (50-130) 05/04/21 07:25 HDL Cholesterol 48 mg/dL (40-59) 05/04/21 07:25 Cholesterol/HDL Ratio 2.91 % 05/04/21 07:25 Procalcitonin 0.63 ng/mL (<0.15) 05/09/21 15:53 Urine Color Yellow (Yellow) 05/26/21 09:50 Urine Turbidity Turbid (Clear) 05/26/21 09:50 Urine pH 5.0 (5.0-7.0) 05/26/21 09:50 Ur Specific [place] 1.014 (1.003-1.030) 05/26/21 09:50 Urine Protein 30 mg/dl mg/dL (Negative) 05/26/21 09:50 Urine Glucose (UA) Neg mg/dL (Negative) 05/26/21 09:50 Urine Ketones Neg mg/dL (Negative) 05/26/21 09:50 Urine Blood Sm (Negative) 05/26/21 09:50 Urine Nitrite Neg (Negative) 05/26/21 09:50 Urine Bilirubin Neg (Negative) 05/26/21 09:50 Urine Urobilinogen < 2.0 mg/dL (<2.0) 05/26/21 09:50 Ur Leukocyte Esterase Tr (Negative) 05/26/21 09:50 Urine WBC (Auto) 38.0 /HPF (0.0-6.0) H 05/26/21 09:50 Urine RBC (Auto) 5.0 /HPF (0.0-6.0) 05/26/21 09:50 U Epithel Cells (Auto) 1.0 /HPF (0-13.0) 05/23/21 16:30 Urine Bacteria (Auto) 1+ /HPF (Negative) 05/23/21 16:30 Uric Acid Crystals Few 05/09/21 00:40 Triple Phos Crystals 2+ 05/09/21 13:22 Amorphous Crystals 3+ 05/26/21 09:50 Granular Casts 20 /LPF 05/26/21 09:50 Urine Mucus Few /HPF 05/23/21 16:30 Urine Creatinine 100.1 mg/dL (0.1-20.0) H 05/23/21 16:30 Protein/Creatinin Ratio 0.42 05/10/21 11:03 Urine Sodium 25 mmol/L 05/23/21 16:30 Fraction Sodium Excret 0.3 05/23/21 16:30 Urine Total Protein 42 mg/dL (5-11.8) H 05/10/21 11:03 Vancomycin Trough 15.4 ug/mL (5.0-20.0) 05/29/21 14:15 Urine Opiates Screen Negative 05/04/21 Unknown Urine Methadone Screen Negative 05/04/21 Unknown Ur Barbiturates Screen Negative 05/04/21 Unknown Ur Phencyclidine Scrn Negative 05/04/21 Unknown Ur Amphetamines Screen Positive 05/04/21 Unknown U Benzodiazepines Scrn Negative 05/04/21 Unknown Urine Cocaine Screen Negative 05/04/21 Unknown U Marijuana (THC) Screen Negative 05/04/21 Unknown Drugs of Abuse Note Disclamer 05/04/21 Unknown Immunofix Electrophor see below 05/05/21 03:40 AUDRA Screen Negative (Negative) 05/05/21 03:40 Proteinase 3 (PR3) Ab <1.0 AI (<1.0) 05/05/21 03:40 Myeloperoxidase Ab <1.0 AI (<1.0) 05/05/21 03:40 Complement C3 72 mg/dL (82-185) L 05/05/21 03:40 Complement C4 17 mg/dL (15-53) 05/05/21 03:40 Coronavirus (PCR) Negative (Negative) 06/05/21 09:47 Hepatitis A IgM Ab Non-reactive (NonReactive) 05/05/21 03:40 Hep Bs Antigen Non-reactive (Negative) 05/05/21 03:40 Hep B Core IgM Ab Non-reactive (NonReactive) 05/05/21 03:40 Hepatitis C Antibody Reactive (NonReactive) A 05/05/21 03:40 Blood Type O POSITIVE 05/23/21 07:12 Antibody Screen Negative 05/23/21 07:12 Crossmatch See Detail 05/23/21 07:12 [place]/IV: Voiding Method Indwelling Catheter Active Medications - Current Medications Current Medications: Generic Name Dose Route Start Last Admin Trade Name Freq PRN Reason Stop Dose Admin Acetaminophen 650 mg 05/04/21 12:34 06/03/21 02:06 Acetaminophen 325 Mg Tab PO 650 mg Q4H PRN Administration Pain MILD(1-3)/Fever >100.5/MARIA Acetaminophen 650 mg 05/07/21 16:00 05/11/21 16:25 Acetaminophen 650 Mg Rect Supp [place] 650 mg Q4H PRN Administration Pain, Mild (1-3) Atorvastatin Calcium 40 mg 05/09/21 22:00 06/04/21 21:39 Atorvastatin 40 Mg Tab FEEDTUBE 40 mg QHS RISHI Administration Dextrose 0 ml 05/09/21 10:49 05/14/21 06:55 Dextrose 10% *Hypoglycemia IV 250 ml PRN PRN Administration Hypoglycemia Fentanyl 50 mcg 05/23/21 15:00 Fentanyl 100 Mcg/2 Ml Inj IV Q10MIN PRN ANALGESIA Haloperidol Lactate 5 mg 05/09/21 18:32 05/18/21 19:52 Haloperidol Lactate 5 Mg/1 Ml Inj IV 5 mg Q6H PRN Administration Agitation Heparin Sodium (Porcine) 5,000 unit 05/27/21 22:00 06/05/21 10:38 Heparin 5,000 Unit/1 Ml Vial SUB-Q 5,000 unit Q12HR RISHI Administration Hydralazine HCl 50 mg 05/04/21 14:00 06/05/21 06:15 Hydralazine 25 Mg Tab PO 50 mg Q8HR RISHI Administration Hydrophilic Ointment 1 applic 05/05/21 15:21 Lip Therapy Vaseline TP Q2HR PRN Dry Lips Fentanyl Citrate 2,000 mcg in 100 mls @ 4.082 mls/hr 05/23/21 15:00 06/05/21 10:44 Fentanyl Drip Premix IV 1 mcg/kg/hr TITR RISHI 4.082 mls/hr Titration Protocol 1 MCG/KG/HR Insulin Human Lispro 0 unit 05/10/21 09:40 05/12/21 16:49 Insulin Lispro 100 Unit/Ml SUB-Q 2 unit Q6HR PRN Administration Hyperglycemia Protocol Labetalol HCl 10 mg 05/15/21 10:24 05/25/21 08:15 Labetalol 20 Mg/4 Ml Inj IV 10 mg Q4H PRN Administration sbp> 160. Lansoprazole 30 mg 05/26/21 10:00 06/05/21 10:38 Lansoprazole 30 Mg Solutab FEEDTUBE 30 mg BID RISHI Administration Metoprolol Tartrate 50 mg 05/26/21 08:00 06/05/21 08:45 Metoprolol Tartrate 25 Mg Tab FEEDTUBE 50 mg TID RISHI Administration Multi-Ingred Cream/Lotion/Oil/Oint 1 applic 05/05/21 15:21 Mineral Oil/Petrolatum, White Ophth Oint 3.5 Gm OU Q4HR PRN Dry Eye(s) Ondansetron HCl 4 mg 05/04/21 12:34 05/04/21 21:51 Ondansetron 4 Mg/2 Ml Inj IV 4 mg Q8H PRN Administration Nausea And Vomiting Oxycodone HCl 5 mg 05/30/21 11:00 05/30/21 14:55 Oxycodone 5 Mg Tab PO 5 mg Q6H PRN Administration Pain, Moderate (4-6) Polyethylene Glycol 17 gm 05/26/21 22:00 06/04/21 21:39 Polyethylene Glycol 3350 17 Gm Powder PO 17 gm QHS RISHI Administration Senna/Docusate Sodium 1 tab 05/05/21 22:00 06/05/21 10:38 Sennosides/Docusate Sodium 8.6/50 Mg Tab FEEDTUBE 1 tab BID RISHI Administration Sodium Chloride 10 ml 05/04/21 12:34 05/06/21 13:59 Sodium Chloride 0.9% 10 Ml Flush Syringe IV 10 ml PRN PRN Administration LINE FLUSH Sodium Chloride 10 ml 05/09/21 09:46 Sodium Chloride 0.9% 50 Ml Ivpb IV PRN PRN FLUSH Nutrition/Malnutrition Assess - Dietary Evaluation Nutrition/Malnutrition Findings: Nutrition Notes Start: 05/05/21 16:15 Freq: Status: Active Protocol: Document 06/03/21 14:39 ROSAURA (Rec: 06/03/21 14:42 ROSAURA [id number]) Nutrition Notes Initial or Follow up Reassessment Current Diagnosis Acute Kidney Injury, Hypertension,Heart Failure, Respiratory Failure Other Pertinent Diagnosis Severe COVID-19 pneu, metabolic encephalopathy, polysubstance dependence Current Diet TF - Nepro at 45ml/hr Labs/Tests BUN 44 Pertinent Medications reviewed Height 5 ft 7 in Weight 81.647 kg [place] Body Weight (kg) 67.27 BMI 28.1 Weight Status Overweight Subjective/Other Information Pt remains on vent support. Still awaiting family consent for trach and PEG placement. Spoke with RN via phone (14:18 ); pt continues to tolerate TF at goal rate Percent of energy/protein needs met: 100% energy 89% pro Burn Absent Trauma Absent #1 Nutrition Diagnosis Inadequate oral intake Diagnosis Progress(for reassessment Continues documentation) Is patient on ventilator? Yes Is Patient Ambulatory and/or Out of Bed No REE-([facility]-confined to bed) [phone] Calculation Used for Recommendations [facility] Additional Notes Pro needs 1.2-2g/k-163g/ day Fluid needs 1ml/kcal Nutrition Intervention Nutrition Support: Continue Nepro at 45ml/hr with 200ml water flush q4h. Kcal 1,944 Protein (gm) 87 Carbohydrates (gm) 174 Fat (gm) 104 Fluid (mL) 785 Fiber (gm) 14 Goal #1 TF tolerance Goal #2 TF to meet at least 75% energy and pro needs Follow-Up By: 06/10/21 Additional Comments F/U: stable TF, vent status, trach/PEG placement, wt
[2021-06-05] MEDS: fentaNYL DRIP Premix 2,000 MCG/100 ML BAG IV SCH (20:05)
[2021-06-05] MEDS: POLYETHYLENE GLYCOL 3350 17 GM POWDER PO SCH (22:23)
[2021-06-06] MEDS: hydrALAZINE 25 MG TAB PO SCH ×3 (06:19→22:16)
[2021-06-06] MEDS: fentaNYL DRIP Premix 2,000 MCG/100 ML BAG IV SCH (07:53)
[2021-06-06] MEDS: METOPROLOL TARTRATE 25 MG TAB FEEDTUBE SCH ×3 (07:54→20:18)
[2021-06-06] MEDS: HEPARIN 5,000 UNIT/1 ML VIAL SUB-Q SCH ×2 (09:58→22:16)
[2021-06-06] MEDS: SENNOSIDES/DOCUSATE SODIUM 8.6/50 MG TAB FEEDTUBE SCH ×2 (09:58→22:15)
[2021-06-06] MEDS: LANSOPRAZOLE 30 MG SOLUTAB FEEDTUBE SCH ×2 (09:58→22:15)
--- NOTE | 2021-06-06 10:42 | Progress Note ---
Subjective Date of service: 06/06/21 Principal diagnosis: AHRF; COVID-19 infection; NSTEMI; YE; HFrEF (35-40%); Polysubstance abuse Interval history: Patient intubated, FiO2 25%. Chart, vitals, labs reviewed. Objective - Vital Signs Vital signs: Vital Signs - 12hr 06/05/21 06/05/21 06/05/21 23:00 23:04 23:42 Temperature Pulse Rate 71 71 68 Pulse Rate [ From Monitor] Respiratory 16 16 Rate Blood Pressure 117/83 117/83 114/81 O2 Sat by Pulse 98 97 98 Oximetry 06/06/21 06/06/21 06/06/21 00:00 01:00 02:00 Temperature 99.9 F H Pulse Rate 68 72 72 Pulse Rate [ 76 From Monitor] Respiratory 16 16 16 Rate Blood Pressure 111/79 111/78 117/78 O2 Sat by Pulse 99 98 Oximetry 06/06/21 06/06/21 06/06/21 03:00 03:09 04:00 Temperature 100.6 F H Pulse Rate 71 73 71 Pulse Rate [ 74 From Monitor] Respiratory 16 16 Rate Blood Pressure 117/81 117/81 123/81 O2 Sat by Pulse 99 97 99 Oximetry 06/06/21 06/06/21 06/06/21 05:00 06:00 06:19 Temperature Pulse Rate 78 69 71 Pulse Rate [ From Monitor] Respiratory 13 16 Rate Blood Pressure 115/79 106/65 106/65 O2 Sat by Pulse 96 Oximetry 06/06/21 06/06/21 06/06/21 07:00 07:27 07:54 Temperature Pulse Rate 70 71 71 Pulse Rate [ From Monitor] Respiratory 16 Rate Blood Pressure 98/66 98/66 101/65 O2 Sat by Pulse 99 99 Oximetry 06/06/21 06/06/21 06/06/21 08:00 09:00 10:00 Temperature 100.4 F H Pulse Rate 76 72 73 Pulse Rate [ 67 From Monitor] Respiratory 16 16 16 Rate Blood Pressure 112/80 123/83 119/80 O2 Sat by Pulse 97 Oximetry - Lab 06/05/21 04:24 06/05/21 04:24 Most recent lab results ABG pH 7.443 pH Units (7.350-7.450) 05/27/21 09:20 ABG pCO2 38.8 mm Hg 05/27/21 09:20 ABG pO2 115.2 mm Hg (80.0-90.0) H 05/27/21 09:20 ABG HCO3 25.9 mmol/L (20.0-26.0) 05/27/21 09:20 ABG O2 Saturation 98.3 % (95.0-99.0) 05/27/21 09:20 Calcium 8.5 mg/dL (8.4-10.2) 06/05/21 04:24 Phosphorus 3.70 mg/dL (2.5-4.5) 06/01/21 04:56 Magnesium 2.10 mg/dL (1.7-2.3) 06/01/21 04:56 Urine Creatinine 100.1 mg/dL (0.1-20.0) H 05/23/21 16:30 Urine Sodium 25 mmol/L 05/23/21 16:30 Urine Total Protein 42 mg/dL (5-11.8) H 05/10/21 11:03 Medications & Allergies - Medications Allergies/Adverse Reactions: Allergies No Known Allergies Allergy (Verified 05/08/21 07:47) Home Medications: Home Medications Medication Instructions Recorded Confirmed Last Taken Type Cefpodoxime Proxetil 200 mg PO Q12H #10 tablet 09/11/20 05/19/21 Unknown Rx Famotidine [Pepcid] 20 mg PO BID #30 tablet 04/13/21 05/19/21 Unknown Rx Losartan [Cozaar] 100 mg PO QDAY #60 tablet 04/13/21 05/19/21 Unknown Rx Metoprolol Xl [Metoprolol 25 mg PO QDAY #30 tablet 04/13/21 05/19/21 Unknown Rx SUCCINATE ER TAB] NIFEdipine XL [Procardia Xl] 60 mg PO Q12HR #60 tablet 04/13/21 05/19/21 Unknown Rx hydrALAZINE [Apresoline TAB] 50 mg PO Q8HR #180 tablet 04/13/21 05/19/21 Unknown Rx Active Medications: Generic Name Dose Route Start Last Admin Trade Name Freq PRN Reason Stop Dose Admin Acetaminophen 650 mg 05/04/21 12:34 06/03/21 02:06 Acetaminophen 325 Mg Tab PO 650 mg Q4H PRN Administration Pain MILD(1-3)/Fever >100.5/MARIA Acetaminophen 650 mg 05/07/21 16:00 05/11/21 16:25 Acetaminophen 650 Mg Rect Supp [place] 650 mg Q4H PRN Administration Pain, Mild (1-3) Atorvastatin Calcium 40 mg 05/09/21 22:00 06/05/21 22:23 Atorvastatin 40 Mg Tab FEEDTUBE 40 mg QHS RISHI Administration Dextrose 0 ml 05/09/21 10:49 05/14/21 06:55 Dextrose 10% *Hypoglycemia IV 250 ml PRN PRN Administration Hypoglycemia Fentanyl 50 mcg 05/23/21 15:00 Fentanyl 100 Mcg/2 Ml Inj IV Q10MIN PRN ANALGESIA Haloperidol Lactate 5 mg 05/09/21 18:32 05/18/21 19:52 Haloperidol Lactate 5 Mg/1 Ml Inj IV 5 mg Q6H PRN Administration Agitation Heparin Sodium (Porcine) 5,000 unit 05/27/21 22:00 06/06/21 09:58 Heparin 5,000 Unit/1 Ml Vial SUB-Q 5,000 unit Q12HR RISHI Administration Hydralazine HCl 50 mg 05/04/21 14:00 06/06/21 06:19 Hydralazine 25 Mg Tab PO 50 mg Q8HR RISHI Administration Fentanyl Citrate 2,000 mcg in 100 mls @ 4.082 mls/hr 05/23/21 15:00 06/06/21 07:53 Fentanyl Drip Premix IV 2 mcg/kg/hr TITR RISHI 8.165 mls/hr Administration Protocol 1 MCG/KG/HR Insulin Human Lispro 0 unit 05/10/21 09:40 05/12/21 16:49 Insulin Lispro 100 Unit/Ml SUB-Q 2 unit Q6HR PRN Administration Hyperglycemia Protocol Labetalol HCl 10 mg 05/15/21 10:24 05/25/21 08:15 Labetalol 20 Mg/4 Ml Inj IV 10 mg Q4H PRN Administration sbp> 160. Lansoprazole 30 mg 05/26/21 10:00 06/06/21 09:58 Lansoprazole 30 Mg Solutab FEEDTUBE 30 mg BID RISHI Administration Metoprolol Tartrate 50 mg 05/26/21 08:00 06/06/21 07:54 Metoprolol Tartrate 25 Mg Tab FEEDTUBE Not Given TID RISHI Ondansetron HCl 4 mg 05/04/21 12:34 05/04/21 21:51 Ondansetron 4 Mg/2 Ml Inj IV 4 mg Q8H PRN Administration Nausea And Vomiting Oxycodone HCl 5 mg 05/30/21 11:00 05/30/21 14:55 Oxycodone 5 Mg Tab PO 5 mg Q6H PRN Administration Pain, Moderate (4-6) Polyethylene Glycol 17 gm 05/26/21 22:00 06/05/21 22:23 Polyethylene Glycol 3350 17 Gm Powder PO 17 gm QHS RISHI Administration Senna/Docusate Sodium 1 tab 05/05/21 22:00 06/06/21 09:58 Sennosides/Docusate Sodium 8.6/50 Mg Tab FEEDTUBE 1 tab BID RISHI Administration Sodium Chloride 10 ml 05/04/21 12:34 05/06/21 13:59 Sodium Chloride 0.9% 10 Ml Flush Syringe IV 10 ml PRN PRN Administration LINE FLUSH Sodium Chloride 10 ml 05/09/21 09:46 Sodium Chloride 0.9% 50 Ml Ivpb IV PRN PRN FLUSH
--- NOTE | 2021-06-06 12:17 | Progress Note ---
Assessment and Plan Acute hypoxic resp failure on MVS COVID positive NSTEMI Acute kidney injury Cardiomyopathy EF 35-40% History of hepatitis C Elevated D-dimer. Low probability for PE seen on VQ scan Tobacco abuse Polysubstance abusepatient with positive methamphetamines and has a history of cocaine use Anemia (patient is appropriately responsive to simple questions despite being on IV Fentanyl drip but in my opinion is still at least delirous. I have explained to the next of kin the above developments and the plan is for them to come in to see him at bedside tomorrow and at that time make further decisions. Meantime i will stop Fentanyl drip and use prn pushes) - placed on SBT and tolerating well - ABG after 2 hours to assess ventilation - no new issues otherwise, continue care as below; - daily SAT and SBT assessment as tolerated - continue to wean supplemental oxygen for target O2 sat's > 90% acutely - VAP bundle addressed - continue lung protective strategies - continue bronchodilators with pulmonary hygiene per RT - wean per pulmonary driven protocols otherwise - avoid nephrotoxins, renally dose all medications - continue accuchecks with glycemic control per SSI (While critically ill target blood glucose of 140-180 mg/dL; avoid hypoglycemia) - sedation prn for target RASS 0 to -1 - continue to avoid benzodiazepine's, reduce the possibility of delirium - prn analgesia per CPOT score - Maintenance of sleep-wake cycle, avoid delirium - continue enteral nutritional support at goal rate as tolerated - G.I. & VTE prophylaxis with Pantoprazole and Heparin - PT/OT/ROM exercises - continue mobility protocols for pressure ulcer prophylaxis - Monitor hemodynamics closely - continue other care per attending / other consultants - discharge planning ongoing concurrently COVID SPECIFIC INTERVENTIONS - Appears to have incidental COVID infection- Remdesivir not administered secondary to renal failure - continue systemic steroids for severe COVID-19 infection empirically (Dexamethasone) - follow repeat COVID tests results - zinc and vitamin C supplementation - Monitor inflammatory markers per facility protocol - ferritin, Ddimer, CRP - therapeutic anticoagulation per system Protocol based on d-dimer and clinical considerations (on therapeutic heparin for NSTEMI) - Continue contact and airborne isolation .... Re-evaluate in am & prn CONDITION: CRITICAL PROGNOSIS: GUARDED CODE STATUS: FULL CODE The high probability of a clinically significant, sudden or life-threatening deterioration of the [respiratory, cardiovascular & neurologic] system(s) required my full and direct attention, intervention and personal management. The aggregate critical care time was [34] minutes without overlap. Time includes spent on; [x] Data Review and interpretation [x] Patient assessment and monitoring of vital signs [x] Documentation [x] Medication orders and management Subjective Date of service: 06/06/21 Principal diagnosis: AHRF; COVID-19 infection; NSTEMI; YE; HFrEF (35-40%); Polysubstance abuse Interval history: Patient is seen today for: Acute hypoxemic Resp failure; COVID-19 infection; NSTEMI; YE; HFrEF (35-40%); Polysubstance abuse; Anemia Seen and examined at bedside; 24hour events reviewed; nursing and respiratory care staff consulted; no adverse overnight events reported to me; resting in bed; remains on MVS; responds appropriately to simple commands; no emesis or ove rt aspiration Objective Vital Signs - 12hr 06/06/21 06/06/21 06/06/21 01:00 02:00 03:00 Temperature Pulse Rate 72 72 71 Pulse Rate [ From Monitor] Respiratory 16 16 16 Rate Blood Pressure 111/78 117/78 117/81 O2 Sat by Pulse 98 99 Oximetry 06/06/21 06/06/21 06/06/21 03:09 04:00 05:00 Temperature 100.6 F H Pulse Rate 73 71 78 Pulse Rate [ 74 From Monitor] Respiratory 16 13 Rate Blood Pressure 117/81 123/81 115/79 O2 Sat by Pulse 97 99 Oximetry 06/06/21 06/06/21 06/06/21 06:00 06:19 07:00 Temperature Pulse Rate 69 71 70 Pulse Rate [ From Monitor] Respiratory 16 16 Rate Blood Pressure 106/65 106/65 98/66 O2 Sat by Pulse 96 99 Oximetry 06/06/21 06/06/21 06/06/21 07:27 07:54 08:00 Temperature 100.4 F H Pulse Rate 71 71 76 Pulse Rate [ 67 From Monitor] Respiratory 16 Rate Blood Pressure 98/66 101/65 112/80 O2 Sat by Pulse 99 97 Oximetry 06/06/21 06/06/21 06/06/21 09:00 10:00 11:00 Temperature Pulse Rate 72 73 76 Pulse Rate [ From Monitor] Respiratory 16 16 16 Rate Blood Pressure 123/83 119/80 118/82 O2 Sat by Pulse Oximetry 06/06/21 11:15 Temperature Pulse Rate 77 Pulse Rate [ From Monitor] Respiratory Rate Blood Pressure 118/82 O2 Sat by Pulse 98 Oximetry Constitutional: no acute distress (sedated), other (middle aged male with mildly increased respiratory effort at rest) Eyes: non-icteric ENT: oropharynx moist, other (ETT 24 cm ELIZABET) Neck: supple, no lymphadenopathy, no JVD Effort: mildly labored Ascultation: Bilateral: diminished breath sounds, rhonchi Percussion: Bilateral: not dull Cardiovascular: regular rate and rhythm, other (S1,S2) Gastrointestinal: normoactive bowel sounds, soft, non-tender, non-distended Integumentary: normal Extremities: no cyanosis, no edema, pulses normal Neurologic: non-focal exam (grossly), pupils equal and round, unable to assess (sedated) Psychiatric: other (sedated) CBC and BMP: 06/05/21 04:24 06/05/21 04:24 ABG, PT/INR, D-dimer: ABG ABG pH 7.443 pH Units (7.350-7.450) 05/27/21 09:20 ABG pCO2 38.8 mm Hg 05/27/21 09:20 ABG pO2 115.2 mm Hg (80.0-90.0) H 05/27/21 09:20 ABG O2 Saturation 98.3 % (95.0-99.0) 05/27/21 09:20 PT/INR, D-dimer PT 14.9 Sec. (12.2-14.9) 05/25/21 04:25 INR 1.05 (0.87-1.13) 05/25/21 04:25 D-Dimer 2730.61 ng/mlDDU (0-234) H 05/12/21 07:19 Abnormal lab findings: Abnormal Labs 05/04/21 05/04/21 05/04/21 07:25 07:25 07:25 WBC 12.9 H RBC 3.04 L Hgb 9.5 L Hct 28.4 L MCV MCHC RDW 15.4 H Plt Count Lymph % (Auto) 11.4 L [place] % (Auto) 10.1 H Lymph # (Auto) [place] # (Auto) 1.3 H Seg Neutrophils % 78.0 H Seg Neuts % (Manual) Lymphocytes % (Manual) Monocytes % (Manual) Seg Neutrophils # 10.0 H Seg Neutrophils # Man Lymphocytes # (Manual) Monocytes # (Manual) Haptoglobin PT 15.1 H APTT D-Dimer Heparin Anti-Xa Level ABG pH ABG pO2 ABG HCO3 ABG O2 Saturation ABG Base Excess ABG Hemoglobin Oxyhemoglobin Sodium 135 L Potassium Chloride Carbon Dioxide BUN 65 H Creatinine 3.4 H Glucose 118 H POC Glucose Calcium Phosphorus Magnesium Iron TIBC Ferritin Total Bilirubin 1.50 H AST 519 H ALT 475 H Lactate Dehydrogenase Total Creatine Kinase Troponin T 1.300 H* C-Reactive Protein Albumin Urine WBC (Auto) Urine Creatinine Urine Total Protein Complement C3 Coronavirus (PCR) Hepatitis C Antibody Crossmatch 05/04/21 05/04/21 05/04/21 07:25 08:42 08:42 WBC RBC Hgb Hct MCV MCHC RDW Plt Count Lymph % (Auto) [place] % (Auto) Lymph # (Auto) [place] # (Auto) Seg Neutrophils % Seg Neuts % (Manual) Lymphocytes % (Manual) Monocytes % (Manual) Seg Neutrophils # Seg Neutrophils # Man Lymphocytes # (Manual) Monocytes # (Manual) Haptoglobin PT APTT D-Dimer 579.49 H Heparin Anti-Xa Level ABG pH ABG pO2 ABG HCO3 ABG O2 Saturation ABG Base Excess ABG Hemoglobin Oxyhemoglobin Sodium Potassium Chloride Carbon Dioxide BUN Creatinine Glucose POC Glucose Calcium Phosphorus Magnesium Iron TIBC Ferritin Total Bilirubin AST ALT Lactate Dehydrogenase Total Creatine Kinase 406 H Troponin T 1.230 H* C-Reactive Protein Albumin Urine WBC (Auto) Urine Creatinine Urine Total Protein Complement C3 Coronavirus (PCR) Hepatitis C Antibody Crossmatch 05/04/21 05/04/21 05/04/21 10:13 13:34 18:14 WBC RBC Hgb 8.8 L Hct 26.6 L MCV MCHC RDW Plt Count Lymph % (Auto) [place] % (Auto) Lymph # (Auto) [place] # (Auto) Seg Neutrophils % Seg Neuts % (Manual) Lymphocytes % (Manual) Monocytes % (Manual) Seg Neutrophils # Seg Neutrophils # Man Lymphocytes # (Manual) Monocytes # (Manual) Haptoglobin PT APTT D-Dimer Heparin Anti-Xa Level < 0.10 L ABG pH ABG pO2 ABG HCO3 ABG O2 Saturation ABG Base Excess ABG Hemoglobin Oxyhemoglobin Sodium Potassium Chloride Carbon Dioxide BUN Creatinine Glucose POC Glucose Calcium Phosphorus Magnesium Iron TIBC Ferritin Total Bilirubin AST ALT Lactate Dehydrogenase Total Creatine Kinase Troponin T 1.400 H* C-Reactive Protein Albumin Urine WBC (Auto) Urine Creatinine Urine Total Protein Complement C3 Coronavirus (PCR) Hepatitis C Antibody Crossmatch 05/05/21 05/05/21 05/05/21 03:40 03:40 03:40 WBC RBC Hgb Hct MCV MCHC RDW Plt Count Lymph % (Auto) [place] % (Auto) Lymph # (Auto) [place] # (Auto) Seg Neutrophils % Seg Neuts % (Manual) Lymphocytes % (Manual) Monocytes % (Manual) Seg Neutrophils # Seg Neutrophils # Man Lymphocytes # (Manual) Monocytes # (Manual) Haptoglobin PT APTT D-Dimer Heparin Anti-Xa Level 0.11 L ABG pH ABG pO2 ABG HCO3 ABG O2 Saturation ABG Base Excess ABG Hemoglobin Oxyhemoglobin Sodium Potassium 3.3 L Chloride Carbon Dioxide BUN 59 H Creatinine 2.6 H Glucose 139 H POC Glucose Calcium Phosphorus Magnesium Iron TIBC Ferritin Total Bilirubin AST ALT Lactate Dehydrogenase Total Creatine Kinase Troponin T C-Reactive Protein Albumin Urine WBC (Auto) Urine Creatinine Urine Total Protein Complement C3 Coronavirus (PCR) Hepatitis C Antibody Reactive A Crossmatch 05/05/21 05/05/21 05/05/21 03:40 08:30 09:57 WBC RBC Hgb Hct MCV MCHC RDW Plt Count Lymph % (Auto) [place] % (Auto) Lymph # (Auto) [place] # (Auto) Seg Neutrophils % Seg Neuts % (Manual) Lymphocytes % (Manual) Monocytes % (Manual) Seg Neutrophils # Seg Neutrophils # Man Lymphocytes # (Manual) Monocytes # (Manual) Haptoglobin PT APTT D-Dimer Heparin Anti-Xa Level ABG pH ABG pO2 ABG HCO3 ABG O2 Saturation ABG Base Excess ABG Hemoglobin Oxyhemoglobin Sodium Potassium Chloride Carbon Dioxide BUN Creatinine Glucose POC Glucose Calcium Phosphorus Magnesium Iron TIBC Ferritin Total Bilirubin AST ALT Lactate Dehydrogenase Total Creatine Kinase Troponin T C-Reactive Protein Albumin Urine WBC (Auto) Urine Creatinine 100.8 H Urine Total Protein Complement C3 72 L Coronavirus (PCR) Positive A Hepatitis C Antibody Crossmatch 05/05/21 05/05/21 05/05/21 11:28 17:00 19:51 WBC RBC Hgb Hct MCV MCHC RDW Plt Count Lymph % (Auto) [place] % (Auto) Lymph # (Auto) [place] # (Auto) Seg Neutrophils % Seg Neuts % (Manual) Lymphocytes % (Manual) Monocytes % (Manual) Seg Neutrophils # Seg Neutrophils # Man Lymphocytes # (Manual) Monocytes # (Manual) Haptoglobin PT APTT D-Dimer Heparin Anti-Xa Level 0.10 L 0.22 L ABG pH 7.304 L ABG pO2 140.8 H ABG HCO3 ABG O2 Saturation ABG Base Excess -2.1 L ABG Hemoglobin 10.2 L Oxyhemoglobin Sodium Potassium Chloride Carbon Dioxide BUN Creatinine Glucose POC Glucose Calcium Phosphorus Magnesium Iron TIBC Ferritin Total Bilirubin AST ALT Lactate Dehydrogenase Total Creatine Kinase Troponin T C-Reactive Protein Albumin Urine WBC (Auto) Urine Creatinine Urine Total Protein Complement C3 Coronavirus (PCR) Hepatitis C Antibody Crossmatch 05/06/21 05/06/21 05/06/21 03:47 06:15 17:53 WBC RBC Hgb 9.0 L Hct 27.8 L MCV MCHC RDW Plt Count Lymph % (Auto) [place] % (Auto) Lymph # (Auto) [place] # (Auto) Seg Neutrophils % Seg Neuts % (Manual) Lymphocytes % (Manual) Monocytes % (Manual) Seg Neutrophils # Seg Neutrophils # Man Lymphocytes # (Manual) Monocytes # (Manual) Haptoglobin PT APTT D-Dimer Heparin Anti-Xa Level 0.10 L ABG pH ABG pO2 143.5 H ABG HCO3 ABG O2 Saturation ABG Base Excess -2.4 L ABG Hemoglobin 6.9 L Oxyhemoglobin Sodium Potassium Chloride Carbon Dioxide BUN Creatinine Glucose POC Glucose Calcium Phosphorus Magnesium Iron TIBC Ferritin Total Bilirubin AST ALT Lactate Dehydrogenase Total Creatine Kinase Troponin T C-Reactive Protein Albumin Urine WBC (Auto) Urine Creatinine Urine Total Protein Complement C3 Coronavirus (PCR) Hepatitis C Antibody Crossmatch 05/07/21 05/07/21 05/07/21 00:07 03:22 03:45 WBC RBC Hgb Hct MCV MCHC RDW Plt Count Lymph % (Auto) [place] % (Auto) Lymph # (Auto) [place] # (Auto) Seg Neutrophils % Seg Neuts % (Manual) Lymphocytes % (Manual) Monocytes % (Manual) Seg Neutrophils # Seg Neutrophils # Man Lymphocytes # (Manual) Monocytes # (Manual) Haptoglobin PT APTT D-Dimer Heparin Anti-Xa Level < 0.10 L ABG pH ABG pO2 104.3 H ABG HCO3 ABG O2 Saturation ABG Base Excess -2.6 L ABG Hemoglobin 9.1 L Oxyhemoglobin Sodium Potassium Chloride 107.1 H Carbon Dioxide 20 L BUN 56 H Creatinine 2.9 H Glucose POC Glucose Calcium Phosphorus Magnesium Iron TIBC Ferritin Total Bilirubin AST ALT Lactate Dehydrogenase Total Creatine Kinase Troponin T C-Reactive Protein Albumin Urine WBC (Auto) Urine Creatinine Urine Total Protein Complement C3 Coronavirus (PCR) Hepatitis C Antibody Crossmatch 05/07/21 05/07/21 05/07/21 07:44 16:28 22:41 WBC RBC Hgb Hct MCV MCHC RDW Plt Count Lymph % (Auto) [place] % (Auto) Lymph # (Auto) [place] # (Auto) Seg Neutrophils % Seg Neuts % (Manual) Lymphocytes % (Manual) Monocytes % (Manual) Seg Neutrophils # Seg Neutrophils # Man Lymphocytes # (Manual) Monocytes # (Manual) Haptoglobin PT APTT D-Dimer Heparin Anti-Xa Level < 0.10 L 0.10 L < 0.10 L ABG pH ABG pO2 ABG HCO3 ABG O2 Saturation ABG Base Excess ABG Hemoglobin Oxyhemoglobin Sodium Potassium Chloride Carbon Dioxide BUN Creatinine Glucose POC Glucose Calcium Phosphorus Magnesium Iron TIBC Ferritin Total Bilirubin AST ALT Lactate Dehydrogenase Total Creatine Kinase Troponin T C-Reactive Protein Albumin Urine WBC (Auto) Urine Creatinine Urine Total Protein Complement C3 Coronavirus (PCR) Hepatitis C Antibody Crossmatch 05/08/21 05/08/21 05/08/21 03:25 04:34 07:30 WBC 12.4 H RBC 3.02 L Hgb 9.5 L Hct 29.2 L MCV 97 H MCHC RDW 16.7 H Plt Count Lymph % (Auto) 8.1 L [place] % (Auto) 11.0 H Lymph # (Auto) 1.0 L [place] # (Auto) 1.4 H Seg Neutrophils % 80.1 H Seg Neuts % (Manual) Lymphocytes % (Manual) Monocytes % (Manual) Seg Neutrophils # 9.9 H Seg Neutrophils # Man Lymphocytes # (Manual) Monocytes # (Manual) Haptoglobin PT APTT D-Dimer Heparin Anti-Xa Level ABG pH ABG pO2 139.0 H ABG HCO3 ABG O2 Saturation ABG Base Excess ABG Hemoglobin 8.8 L Oxyhemoglobin Sodium Potassium Chloride 110.5 H Carbon Dioxide BUN 59 H Creatinine 2.8 H Glucose 103 H POC Glucose Calcium Phosphorus Magnesium Iron TIBC Ferritin Total Bilirubin AST ALT 327 H Lactate Dehydrogenase Total Creatine Kinase Troponin T C-Reactive Protein Albumin 3.1 L Urine WBC (Auto) Urine Creatinine Urine Total Protein Complement C3 Coronavirus (PCR) Hepatitis C Antibody Crossmatch 05/09/21 05/09/21 05/09/21 04:10 04:20 04:20 WBC 11.7 H RBC 2.79 L Hgb 8.7 L Hct 26.5 L MCV 95 H MCHC RDW 16.2 H Plt Count Lymph % (Auto) [place] % (Auto) Lymph # (Auto) [place] # (Auto) Seg Neutrophils % Seg Neuts % (Manual) Lymphocytes % (Manual) Monocytes % (Manual) Seg Neutrophils # Seg Neutrophils # Man Lymphocytes # (Manual) Monocytes # (Manual) Haptoglobin PT APTT D-Dimer Heparin Anti-Xa Level ABG pH ABG pO2 161.6 H ABG HCO3 ABG O2 Saturation ABG Base Excess ABG Hemoglobin 8.3 L Oxyhemoglobin Sodium 151 H Potassium Chloride 114.5 H Carbon Dioxide 21 L BUN 57 H Creatinine 2.4 H Glucose POC Glucose Calcium Phosphorus Magnesium Iron TIBC Ferritin Total Bilirubin AST ALT 210 H Lactate Dehydrogenase Total Creatine Kinase Troponin T C-Reactive Protein Albumin 2.9 L Urine WBC (Auto) Urine Creatinine Urine Total Protein Complement C3 Coronavirus (PCR) Hepatitis C Antibody Crossmatch 05/09/21 05/09/21 05/09/21 09:48 09:48 13:22 WBC 11.6 H RBC 3.00 L Hgb 9.0 L Hct 28.4 L MCV MCHC RDW 15.9 H Plt Count Lymph % (Auto) 5.9 L [place] % (Auto) 8.9 H Lymph # (Auto) 0.7 L [place] # (Auto) 1.0 H Seg Neutrophils % 84.3 H Seg Neuts % (Manual) Lymphocytes % (Manual) Monocytes % (Manual) Seg Neutrophils # 9.8 H Seg Neutrophils # Man Lymphocytes # (Manual) Monocytes # (Manual) Haptoglobin PT APTT D-Dimer Heparin Anti-Xa Level ABG pH ABG pO2 ABG HCO3 ABG O2 Saturation ABG Base Excess ABG Hemoglobin Oxyhemoglobin Sodium Potassium Chloride Carbon Dioxide BUN Creatinine Glucose POC Glucose Calcium Phosphorus Magnesium Iron TIBC Ferritin Total Bilirubin AST ALT Lactate Dehydrogenase Total Creatine Kinase Troponin T C-Reactive Protein 8.70 H Albumin Urine WBC (Auto) 25.0 H Urine Creatinine Urine Total Protein Complement C3 Coronavirus (PCR) Hepatitis C Antibody Crossmatch 05/09/21 05/09/21 05/10/21 15:20 18:16 04:57 WBC RBC 2.87 L Hgb 8.8 L Hct 27.0 L MCV MCHC RDW 15.9 H Plt Count Lymph % (Auto) [place] % (Auto) Lymph # (Auto) [place] # (Auto) Seg Neutrophils % Seg Neuts % (Manual) Lymphocytes % (Manual) Monocytes % (Manual) Seg Neutrophils # Seg Neutrophils # Man Lymphocytes # (Manual) Monocytes # (Manual) Haptoglobin PT APTT D-Dimer Heparin Anti-Xa Level ABG pH ABG pO2 102.0 H ABG HCO3 ABG O2 Saturation ABG Base Excess -2.8 L ABG Hemoglobin 9.0 L Oxyhemoglobin Sodium Potassium Chloride Carbon Dioxide BUN Creatinine Glucose POC Glucose 130 H Calcium Phosphorus Magnesium Iron TIBC Ferritin Total Bilirubin AST ALT Lactate Dehydrogenase Total Creatine Kinase Troponin T C-Reactive Protein Albumin Urine WBC (Auto) Urine Creatinine Urine Total Protein Complement C3 Coronavirus (PCR) Hepatitis C Antibody Crossmatch 05/10/21 05/10/21 05/10/21 04:57 04:57 04:57 WBC RBC Hgb Hct MCV MCHC RDW Plt Count Lymph % (Auto) [place] % (Auto) Lymph # (Auto) [place] # (Auto) Seg Neutrophils % Seg Neuts % (Manual) Lymphocytes % (Manual) Monocytes % (Manual) Seg Neutrophils # Seg Neutrophils # Man Lymphocytes # (Manual) Monocytes # (Manual) Haptoglobin PT APTT D-Dimer 1546.78 H Heparin Anti-Xa Level ABG pH ABG pO2 ABG HCO3 ABG O2 Saturation ABG Base Excess ABG Hemoglobin Oxyhemoglobin Sodium 148 H Potassium Chloride 114.9 H Carbon Dioxide 21 L BUN 57 H Creatinine 2.3 H Glucose 157 H POC Glucose Calcium Phosphorus Magnesium Iron TIBC Ferritin 888.2 H Total Bilirubin AST ALT Lactate Dehydrogenase 289 H Total Creatine Kinase Troponin T C-Reactive Protein 6.80 H Albumin Urine WBC (Auto) Urine Creatinine Urine Total Protein Complement C3 Coronavirus (PCR) Hepatitis C Antibody Crossmatch 05/10/21 05/10/21 05/10/21 05:09 08:04 11:03 WBC RBC Hgb Hct MCV MCHC RDW Plt Count Lymph % (Auto) [place] % (Auto) Lymph # (Auto) [place] # (Auto) Seg Neutrophils % Seg Neuts % (Manual) Lymphocytes % (Manual) Monocytes % (Manual) Seg Neutrophils # Seg Neutrophils # Man Lymphocytes # (Manual) Monocytes # (Manual) Haptoglobin PT APTT D-Dimer Heparin Anti-Xa Level ABG pH 7.473 H ABG pO2 114.6 H ABG HCO3 ABG O2 Saturation ABG Base Excess ABG Hemoglobin 9.5 L Oxyhemoglobin Sodium Potassium Chloride Carbon Dioxide BUN Creatinine Glucose POC Glucose 152 H Calcium Phosphorus Magnesium Iron TIBC Ferritin Total Bilirubin AST ALT Lactate Dehydrogenase Total Creatine Kinase Troponin T C-Reactive Protein Albumin Urine WBC (Auto) Urine Creatinine 100.8 H Urine Total Protein 42 H Complement C3 Coronavirus (PCR) Hepatitis C Antibody Crossmatch 05/10/21 05/10/21 05/10/21 13:07 18:01 23:31 WBC RBC Hgb Hct MCV MCHC RDW Plt Count Lymph % (Auto) [place] % (Auto) Lymph # (Auto) [place] # (Auto) Seg Neutrophils % Seg Neuts % (Manual) Lymphocytes % (Manual) Monocytes % (Manual) Seg Neutrophils # Seg Neutrophils # Man Lymphocytes # (Manual) Monocytes # (Manual) Haptoglobin PT APTT D-Dimer Heparin Anti-Xa Level ABG pH ABG pO2 ABG HCO3 ABG O2 Saturation ABG Base Excess ABG Hemoglobin Oxyhemoglobin Sodium Potassium Chloride Carbon Dioxide BUN Creatinine Glucose POC Glucose 150 H 189 H 142 H Calcium Phosphorus Magnesium Iron TIBC Ferritin Total Bilirubin AST ALT Lactate Dehydrogenase Total Creatine Kinase Troponin T C-Reactive Protein Albumin Urine WBC (Auto) Urine Creatinine Urine Total Protein Complement C3 Coronavirus (PCR) Hepatitis C Antibody Crossmatch 05/10/21 05/11/21 05/11/21 Unknown 05:25 06:53 WBC RBC Hgb Hct MCV MCHC RDW Plt Count Lymph % (Auto) [place] % (Auto) Lymph # (Auto) [place] # (Auto) Seg Neutrophils % Seg Neuts % (Manual) Lymphocytes % (Manual) Monocytes % (Manual) Seg Neutrophils # Seg Neutrophils # Man Lymphocytes # (Manual) Monocytes # (Manual) Haptoglobin PT APTT D-Dimer Heparin Anti-Xa Level ABG pH ABG pO2 126.6 H ABG HCO3 ABG O2 Saturation ABG Base Excess ABG Hemoglobin 9.2 L Oxyhemoglobin Sodium 150 H Potassium Chloride 116.6 H Carbon Dioxide 21 L BUN 62 H Creatinine 2.5 H Glucose 142 H POC Glucose 163 H Calcium Phosphorus Magnesium Iron TIBC Ferritin Total Bilirubin AST ALT Lactate Dehydrogenase Total Creatine Kinase Troponin T C-Reactive Protein Albumin Urine WBC (Auto) Urine Creatinine Urine Total Protein Complement C3 Coronavirus (PCR) Hepatitis C Antibody Crossmatch 05/11/21 05/11/21 05/11/21 06:53 11:06 13:51 WBC RBC 3.07 L Hgb 9.3 L Hct 29.0 L MCV 95 H MCHC RDW 16.1 H Plt Count Lymph % (Auto) [place] % (Auto) Lymph # (Auto) [place] # (Auto) Seg Neutrophils % Seg Neuts % (Manual) Lymphocytes % (Manual) Monocytes % (Manual) Seg Neutrophils # Seg Neutrophils # Man Lymphocytes # (Manual) Monocytes # (Manual) Haptoglobin PT APTT D-Dimer Heparin Anti-Xa Level ABG pH ABG pO2 74.9 L ABG HCO3 ABG O2 Saturation ABG Base Excess -3.3 L ABG Hemoglobin 10.8 L Oxyhemoglobin Sodium Potassium Chloride Carbon Dioxide BUN Creatinine Glucose POC Glucose 145 H Calcium Phosphorus Magnesium Iron TIBC Ferritin Total Bilirubin AST ALT Lactate Dehydrogenase Total Creatine Kinase Troponin T C-Reactive Protein Albumin Urine WBC (Auto) Urine Creatinine Urine Total Protein Complement C3 Coronavirus (PCR) Hepatitis C Antibody Crossmatch 05/11/21 05/11/21 05/11/21 14:43 14:43 15:47 WBC RBC Hgb 9.2 L Hct 29.7 L MCV MCHC RDW Plt Count Lymph % (Auto) [place] % (Auto) Lymph # (Auto) [place] # (Auto) Seg Neutrophils % Seg Neuts % (Manual) Lymphocytes % (Manual) Monocytes % (Manual) Seg Neutrophils # Seg Neutrophils # Man Lymphocytes # (Manual) Monocytes # (Manual) Haptoglobin PT 15.6 H APTT D-Dimer Heparin Anti-Xa Level ABG pH ABG pO2 ABG HCO3 ABG O2 Saturation ABG Base Excess ABG Hemoglobin Oxyhemoglobin Sodium Potassium Chloride Carbon Dioxide BUN Creatinine Glucose POC Glucose 137 H Calcium Phosphorus Magnesium Iron TIBC Ferritin Total Bilirubin AST ALT Lactate Dehydrogenase Total Creatine Kinase Troponin T C-Reactive Protein Albumin Urine WBC (Auto) Urine Creatinine Urine Total Protein Complement C3 Coronavirus (PCR) Hepatitis C Antibody Crossmatch 05/12/21 05/12/21 05/12/21 00:04 05:07 07:19 WBC 11.9 H RBC 3.00 L Hgb 9.1 L Hct 28.9 L MCV 96 H MCHC RDW 16.7 H Plt Count Lymph % (Auto) 11.5 L [place] % (Auto) 8.2 H Lymph # (Auto) [place] # (Auto) 1.0 H Seg Neutrophils % 80.0 H Seg Neuts % (Manual) Lymphocytes % (Manual) Monocytes % (Manual) Seg Neutrophils # 9.6 H Seg Neutrophils # Man Lymphocytes # (Manual) Monocytes # (Manual) Haptoglobin PT APTT D-Dimer Heparin Anti-Xa Level ABG pH ABG pO2 ABG HCO3 ABG O2 Saturation ABG Base Excess ABG Hemoglobin Oxyhemoglobin Sodium Potassium Chloride Carbon Dioxide BUN Creatinine Glucose POC Glucose 121 H 117 H Calcium Phosphorus Magnesium Iron TIBC Ferritin Total Bilirubin AST ALT Lactate Dehydrogenase Total Creatine Kinase Troponin T C-Reactive Protein Albumin Urine WBC (Auto) Urine Creatinine Urine Total Protein Complement C3 Coronavirus (PCR) Hepatitis C Antibody Crossmatch 05/12/21 05/12/21 05/12/21 07:19 07:19 07:19 WBC RBC Hgb Hct MCV MCHC RDW Plt Count Lymph % (Auto) [place] % (Auto) Lymph # (Auto) [place] # (Auto) Seg Neutrophils % Seg Neuts % (Manual) Lymphocytes % (Manual) Monocytes % (Manual) Seg Neutrophils # Seg Neutrophils # Man Lymphocytes # (Manual) Monocytes # (Manual) Haptoglobin PT APTT D-Dimer 2730.61 H Heparin Anti-Xa Level ABG pH ABG pO2 ABG HCO3 ABG O2 Saturation ABG Base Excess ABG Hemoglobin Oxyhemoglobin Sodium 146 H Potassium 5.1 H Chloride 112.4 H Carbon Dioxide 21 L BUN 61 H Creatinine 2.2 H Glucose 136 H POC Glucose Calcium 8.1 L Phosphorus Magnesium Iron TIBC Ferritin 640.2 H Total Bilirubin AST ALT Lactate Dehydrogenase 314 H Total Creatine Kinase Troponin T C-Reactive Protein 1.60 H Albumin Urine WBC (Auto) Urine Creatinine Urine Total Protein Complement C3 Coronavirus (PCR) Hepatitis C Antibody Crossmatch 05/12/21 05/12/21 05/12/21 11:10 16:10 16:38 WBC RBC Hgb Hct MCV MCHC RDW Plt Count Lymph % (Auto) [place] % (Auto) Lymph # (Auto) [place] # (Auto) Seg Neutrophils % Seg Neuts % (Manual) Lymphocytes % (Manual) Monocytes % (Manual) Seg Neutrophils # Seg Neutrophils # Man Lymphocytes # (Manual) Monocytes # (Manual) Haptoglobin PT APTT D-Dimer Heparin Anti-Xa Level 0.20 L ABG pH ABG pO2 ABG HCO3 ABG O2 Saturation ABG Base Excess ABG Hemoglobin Oxyhemoglobin Sodium Potassium Chloride Carbon Dioxide BUN Creatinine Glucose POC Glucose 131 H 157 H Calcium Phosphorus Magnesium Iron TIBC Ferritin Total Bilirubin AST ALT Lactate Dehydrogenase Total Creatine Kinase Troponin T C-Reactive Protein Albumin Urine WBC (Auto) Urine Creatinine Urine Total Protein Complement C3 Coronavirus (PCR) Hepatitis C Antibody Crossmatch 05/12/21 05/13/21 05/13/21 23:30 00:12 04:20 WBC RBC Hgb Hct MCV MCHC RDW Plt Count Lymph % (Auto) [place] % (Auto) Lymph # (Auto) [place] # (Auto) Seg Neutrophils % Seg Neuts % (Manual) Lymphocytes % (Manual) Monocytes % (Manual) Seg Neutrophils # Seg Neutrophils # Man Lymphocytes # (Manual) Monocytes # (Manual) Haptoglobin PT APTT D-Dimer Heparin Anti-Xa Level 0.13 L ABG pH ABG pO2 ABG HCO3 ABG O2 Saturation ABG Base Excess ABG Hemoglobin Oxyhemoglobin Sodium Potassium Chloride 111.2 H Carbon Dioxide BUN 53 H Creatinine 1.9 H Glucose 121 H POC Glucose 115 H Calcium 8.3 L Phosphorus Magnesium Iron TIBC Ferritin Total Bilirubin AST ALT Lactate Dehydrogenase Total Creatine Kinase Troponin T C-Reactive Protein Albumin Urine WBC (Auto) Urine Creatinine Urine Total Protein Complement C3 Coronavirus (PCR) Hepatitis C Antibody Crossmatch 05/13/21 05/13/21 05/13/21 04:20 11:15 11:29 WBC 13.1 H RBC 2.86 L Hgb 8.5 L Hct 26.9 L MCV MCHC RDW 15.7 H Plt Count Lymph % (Auto) [place] % (Auto) Lymph # (Auto) [place] # (Auto) Seg Neutrophils % Seg Neuts % (Manual) Lymphocytes % (Manual) Monocytes % (Manual) Seg Neutrophils # Seg Neutrophils # Man Lymphocytes # (Manual) Monocytes # (Manual) Haptoglobin PT APTT D-Dimer Heparin Anti-Xa Level ABG pH 7.456 H ABG pO2 106.0 H ABG HCO3 ABG O2 Saturation ABG Base Excess ABG Hemoglobin 7.1 L Oxyhemoglobin Sodium Potassium Chloride Carbon Dioxide BUN Creatinine Glucose POC Glucose 121 H Calcium Phosphorus Magnesium Iron TIBC Ferritin Total Bilirubin AST ALT Lactate Dehydrogenase Total Creatine Kinase Troponin T C-Reactive Protein Albumin Urine WBC (Auto) Urine Creatinine Urine Total Protein Complement C3 Coronavirus (PCR) Hepatitis C Antibody Crossmatch 05/13/21 05/13/21 05/14/21 16:38 23:43 04:26 WBC 14.2 H RBC 3.11 L Hgb 9.4 L Hct 29.3 L MCV MCHC RDW 15.4 H Plt Count Lymph % (Auto) [place] % (Auto) Lymph # (Auto) [place] # (Auto) Seg Neutrophils % Seg Neuts % (Manual) Lymphocytes % (Manual) Monocytes % (Manual) Seg Neutrophils # Seg Neutrophils # Man Lymphocytes # (Manual) Monocytes # (Manual) Haptoglobin PT APTT D-Dimer Heparin Anti-Xa Level ABG pH ABG pO2 ABG HCO3 ABG O2 Saturation ABG Base Excess ABG Hemoglobin Oxyhemoglobin Sodium Potassium Chloride Carbon Dioxide BUN Creatinine Glucose POC Glucose 119 H 55 L Calcium Phosphorus Magnesium Iron TIBC Ferritin Total Bilirubin AST ALT Lactate Dehydrogenase Total Creatine Kinase Troponin T C-Reactive Protein Albumin Urine WBC (Auto) Urine Creatinine Urine Total Protein Complement C3 Coronavirus (PCR) Hepatitis C Antibody Crossmatch 05/14/21 05/14/21 05/14/21 04:26 05:26 06:51 WBC RBC Hgb Hct MCV MCHC RDW Plt Count Lymph % (Auto) [place] % (Auto) Lymph # (Auto) [place] # (Auto) Seg Neutrophils % Seg Neuts % (Manual) Lymphocytes % (Manual) Monocytes % (Manual) Seg Neutrophils # Seg Neutrophils # Man Lymphocytes # (Manual) Monocytes # (Manual) Haptoglobin PT APTT D-Dimer Heparin Anti-Xa Level ABG pH ABG pO2 ABG HCO3 ABG O2 Saturation ABG Base Excess ABG Hemoglobin Oxyhemoglobin Sodium Potassium 3.4 L Chloride 107.6 H Carbon Dioxide BUN 42 H Creatinine 1.9 H Glucose POC Glucose 51 L 62 L Calcium Phosphorus Magnesium Iron TIBC Ferritin Total Bilirubin AST ALT Lactate Dehydrogenase Total Creatine Kinase Troponin T C-Reactive Protein Albumin Urine WBC (Auto) Urine Creatinine Urine Total Protein Complement C3 Coronavirus (PCR) Hepatitis C Antibody Crossmatch 05/14/21 05/14/21 05/14/21 09:58 12:05 12:08 WBC RBC Hgb Hct MCV MCHC RDW Plt Count Lymph % (Auto) [place] % (Auto) Lymph # (Auto) [place] # (Auto) Seg Neutrophils % Seg Neuts % (Manual) Lymphocytes % (Manual) Monocytes % (Manual) Seg Neutrophils # Seg Neutrophils # Man Lymphocytes # (Manual) Monocytes # (Manual) Haptoglobin PT APTT D-Dimer Heparin Anti-Xa Level ABG pH ABG pO2 ABG HCO3 ABG O2 Saturation ABG Base Excess ABG Hemoglobin Oxyhemoglobin Sodium Potassium 3.4 L Chloride Carbon Dioxide BUN 36 H Creatinine 1.8 H Glucose 133 H POC Glucose 60 L 127 H Calcium Phosphorus Magnesium Iron TIBC Ferritin Total Bilirubin AST ALT Lactate Dehydrogenase Total Creatine Kinase Troponin T C-Reactive Protein Albumin Urine WBC (Auto) Urine Creatinine Urine Total Protein Complement C3 Coronavirus (PCR) Hepatitis C Antibody Crossmatch 05/14/21 05/14/21 05/15/21 17:20 23:37 05:34 WBC RBC Hgb Hct MCV MCHC RDW Plt Count Lymph % (Auto) [place] % (Auto) Lymph # (Auto) [place] # (Auto) Seg Neutrophils % Seg Neuts % (Manual) Lymphocytes % (Manual) Monocytes % (Manual) Seg Neutrophils # Seg Neutrophils # Man Lymphocytes # (Manual) Monocytes # (Manual) Haptoglobin PT APTT D-Dimer Heparin Anti-Xa Level ABG pH ABG pO2 ABG HCO3 ABG O2 Saturation ABG Base Excess ABG Hemoglobin Oxyhemoglobin Sodium Potassium Chloride Carbon Dioxide BUN Creatinine Glucose POC Glucose 144 H 115 H 119 H Calcium Phosphorus Magnesium Iron TIBC Ferritin Total Bilirubin AST ALT Lactate Dehydrogenase Total Creatine Kinase Troponin T C-Reactive Protein Albumin Urine WBC (Auto) Urine Creatinine Urine Total Protein Complement C3 Coronavirus (PCR) Hepatitis C Antibody Crossmatch 05/15/21 05/15/21 05/15/21 07:26 07:26 14:35 WBC 13.8 H RBC 3.32 L Hgb 10.0 L Hct 31.2 L MCV MCHC RDW 16.0 H Plt Count Lymph % (Auto) [place] % (Auto) Lymph # (Auto) [place] # (Auto) Seg Neutrophils % Seg Neuts % (Manual) Lymphocytes % (Manual) Monocytes % (Manual) Seg Neutrophils # Seg Neutrophils # Man Lymphocytes # (Manual) Monocytes # (Manual) Haptoglobin PT APTT D-Dimer Heparin Anti-Xa Level ABG pH ABG pO2 ABG HCO3 ABG O2 Saturation ABG Base Excess ABG Hemoglobin Oxyhemoglobin Sodium 149 H D Potassium 3.5 L Chloride 113.2 H Carbon Dioxide BUN 29 H Creatinine 1.8 H Glucose 113 H POC Glucose 143 H Calcium Phosphorus Magnesium Iron TIBC Ferritin Total Bilirubin AST ALT Lactate Dehydrogenase Total Creatine Kinase Troponin T C-Reactive Protein Albumin Urine WBC (Auto) Urine Creatinine Urine Total Protein Complement C3 Coronavirus (PCR) Hepatitis C Antibody Crossmatch 05/16/21 05/16/21 05/16/21 06:12 08:43 10:05 WBC RBC Hgb Hct MCV MCHC RDW Plt Count Lymph % (Auto) [place] % (Auto) Lymph # (Auto) [place] # (Auto) Seg Neutrophils % Seg Neuts % (Manual) Lymphocytes % (Manual) Monocytes % (Manual) Seg Neutrophils # Seg Neutrophils # Man Lymphocytes # (Manual) Monocytes # (Manual) Haptoglobin PT APTT D-Dimer Heparin Anti-Xa Level 0.21 L ABG pH ABG pO2 240.8 H ABG HCO3 ABG O2 Saturation 99.4 H ABG Base Excess -2.6 L ABG Hemoglobin 10.7 L Oxyhemoglobin Sodium Potassium Chloride Carbon Dioxide BUN Creatinine Glucose POC Glucose 34 L Calcium Phosphorus Magnesium Iron TIBC Ferritin Total Bilirubin AST ALT Lactate Dehydrogenase Total Creatine Kinase Troponin T C-Reactive Protein Albumin Urine WBC (Auto) Urine Creatinine Urine Total Protein Complement C3 Coronavirus (PCR) Hepatitis C Antibody Crossmatch 05/16/21 05/16/21 05/16/21 10:21 10:21 13:14 WBC 27.6 H RBC Hgb 11.4 L Hct MCV 99 H MCHC 30 L RDW 18.1 H Plt Count Lymph % (Auto) [place] % (Auto) Lymph # (Auto) [place] # (Auto) Seg Neutrophils % Seg Neuts % (Manual) 83.0 H Lymphocytes % (Manual) 4.0 L Monocytes % (Manual) 9.0 H Seg Neutrophils # Seg Neutrophils # Man 22.9 H Lymphocytes # (Manual) 1.1 L Monocytes # (Manual) 2.5 H Haptoglobin PT APTT D-Dimer Heparin Anti-Xa Level ABG pH ABG pO2 ABG HCO3 ABG O2 Saturation ABG Base Excess ABG Hemoglobin Oxyhemoglobin Sodium Potassium Chloride 108.8 H Carbon Dioxide 17 L BUN 26 H Creatinine 1.9 H Glucose 141 H POC Glucose Calcium Phosphorus Magnesium Iron TIBC Ferritin Total Bilirubin AST ALT Lactate Dehydrogenase Total Creatine Kinase Troponin T 0.503 H* C-Reactive Protein Albumin 3.1 L Urine WBC (Auto) Urine Creatinine Urine Total Protein Complement C3 Coronavirus (PCR) Hepatitis C Antibody Crossmatch 05/16/21 05/17/21 05/17/21 18:40 00:02 04:52 WBC RBC Hgb 8.8 L Hct 28.5 L D MCV MCHC RDW Plt Count Lymph % (Auto) [place] % (Auto) Lymph # (Auto) [place] # (Auto) Seg Neutrophils % Seg Neuts % (Manual) Lymphocytes % (Manual) Monocytes % (Manual) Seg Neutrophils # Seg Neutrophils # Man Lymphocytes # (Manual) Monocytes # (Manual) Haptoglobin PT APTT D-Dimer Heparin Anti-Xa Level ABG pH ABG pO2 ABG HCO3 ABG O2 Saturation ABG Base Excess ABG Hemoglobin Oxyhemoglobin Sodium Potassium Chloride Carbon Dioxide BUN Creatinine Glucose POC Glucose 114 H Calcium Phosphorus Magnesium Iron TIBC Ferritin Total Bilirubin AST ALT Lactate Dehydrogenase Total Creatine Kinase Troponin T 0.400 H* D C-Reactive Protein Albumin Urine WBC (Auto) Urine Creatinine Urine Total Protein Complement C3 Coronavirus (PCR) Hepatitis C Antibody Crossmatch 05/17/21 05/17/21 05/17/21 04:52 05:15 06:50 WBC RBC Hgb Hct MCV MCHC RDW Plt Count Lymph % (Auto) [place] % (Auto) Lymph # (Auto) [place] # (Auto) Seg Neutrophils % Seg Neuts % (Manual) Lymphocytes % (Manual) Monocytes % (Manual) Seg Neutrophils # Seg Neutrophils # Man Lymphocytes # (Manual) Monocytes # (Manual) Haptoglobin PT APTT D-Dimer Heparin Anti-Xa Level ABG pH ABG pO2 193.7 H ABG HCO3 27.7 H ABG O2 Saturation 99.2 H ABG Base Excess 3.4 H ABG Hemoglobin 9.2 L Oxyhemoglobin Sodium 146 H Potassium Chloride 110.3 H Carbon Dioxide BUN 33 H Creatinine 2.3 H Glucose 120 H POC Glucose 109 H Calcium Phosphorus Magnesium Iron TIBC Ferritin Total Bilirubin AST ALT Lactate Dehydrogenase Total Creatine Kinase Troponin T C-Reactive Protein Albumin Urine WBC (Auto) Urine Creatinine Urine Total Protein Complement C3 Coronavirus (PCR) Hepatitis C Antibody Crossmatch 05/17/21 05/17/21 05/17/21 10:30 11:33 15:35 WBC RBC Hgb Hct MCV MCHC RDW Plt Count Lymph % (Auto) [place] % (Auto) Lymph # (Auto) [place] # (Auto) Seg Neutrophils % Seg Neuts % (Manual) Lymphocytes % (Manual) Monocytes % (Manual) Seg Neutrophils # Seg Neutrophils # Man Lymphocytes # (Manual) Monocytes # (Manual) Haptoglobin PT APTT D-Dimer Heparin Anti-Xa Level ABG pH 7.457 H ABG pO2 162.5 H 103.7 H ABG HCO3 27.7 H 27.5 H ABG O2 Saturation ABG Base Excess 3.6 H ABG Hemoglobin 10.1 L 11.5 L Oxyhemoglobin Sodium Potassium Chloride Carbon Dioxide BUN Creatinine Glucose POC Glucose 122 H Calcium Phosphorus Magnesium Iron TIBC Ferritin Total Bilirubin AST ALT Lactate Dehydrogenase Total Creatine Kinase Troponin T C-Reactive Protein Albumin Urine WBC (Auto) Urine Creatinine Urine Total Protein Complement C3 Coronavirus (PCR) Hepatitis C Antibody Crossmatch 05/17/21 05/17/21 05/17/21 16:21 18:18 23:29 WBC RBC Hgb 9.6 L Hct 30.3 L MCV MCHC RDW Plt Count Lymph % (Auto) [place] % (Auto) Lymph # (Auto) [place] # (Auto) Seg Neutrophils % Seg Neuts % (Manual) Lymphocytes % (Manual) Monocytes % (Manual) Seg Neutrophils # Seg Neutrophils # Man Lymphocytes # (Manual) Monocytes # (Manual) Haptoglobin PT APTT D-Dimer Heparin Anti-Xa Level ABG pH ABG pO2 ABG HCO3 ABG O2 Saturation ABG Base Excess ABG Hemoglobin Oxyhemoglobin Sodium Potassium Chloride Carbon Dioxide BUN Creatinine Glucose POC Glucose 133 H 111 H Calcium Phosphorus Magnesium Iron TIBC Ferritin Total Bilirubin AST ALT Lactate Dehydrogenase Total Creatine Kinase Troponin T C-Reactive Protein Albumin Urine WBC (Auto) Urine Creatinine Urine Total Protein Complement C3 Coronavirus (PCR) Hepatitis C Antibody Crossmatch 05/18/21 05/18/21 05/18/21 04:15 04:15 05:01 WBC 16.8 H RBC 3.03 L Hgb 8.9 L Hct 28.7 L MCV 95 H MCHC 31 L RDW 16.4 H Plt Count Lymph % (Auto) [place] % (Auto) Lymph # (Auto) [place] # (Auto) Seg Neutrophils % Seg Neuts % (Manual) Lymphocytes % (Manual) Monocytes % (Manual) Seg Neutrophils # Seg Neutrophils # Man Lymphocytes # (Manual) Monocytes # (Manual) Haptoglobin PT APTT D-Dimer Heparin Anti-Xa Level ABG pH ABG pO2 ABG HCO3 ABG O2 Saturation ABG Base Excess ABG Hemoglobin Oxyhemoglobin Sodium Potassium Chloride Carbon Dioxide BUN 40 H Creatinine 2.1 H Glucose 115 H POC Glucose 113 H Calcium Phosphorus Magnesium Iron TIBC Ferritin Total Bilirubin AST ALT Lactate Dehydrogenase Total Creatine Kinase Troponin T C-Reactive Protein Albumin Urine WBC (Auto) Urine Creatinine Urine Total Protein Complement C3 Coronavirus (PCR) Hepatitis C Antibody Crossmatch 05/18/21 05/18/21 05/19/21 11:18 12:50 05:23 WBC 18.5 H RBC 3.31 L Hgb 9.9 L Hct 31.1 L MCV MCHC RDW 16.9 H Plt Count Lymph % (Auto) [place] % (Auto) Lymph # (Auto) [place] # (Auto) Seg Neutrophils % Seg Neuts % (Manual) Lymphocytes % (Manual) Monocytes % (Manual) Seg Neutrophils # Seg Neutrophils # Man Lymphocytes # (Manual) Monocytes # (Manual) Haptoglobin PT APTT D-Dimer Heparin Anti-Xa Level ABG pH ABG pO2 79.6 L ABG HCO3 28.0 H ABG O2 Saturation ABG Base Excess 3.3 H ABG Hemoglobin 6.2 L Oxyhemoglobin Sodium Potassium Chloride Carbon Dioxide BUN Creatinine Glucose POC Glucose 129 H Calcium Phosphorus Magnesium Iron TIBC Ferritin Total Bilirubin AST ALT Lactate Dehydrogenase Total Creatine Kinase Troponin T C-Reactive Protein Albumin Urine WBC (Auto) Urine Creatinine Urine Total Protein Complement C3 Coronavirus (PCR) Hepatitis C Antibody Crossmatch 05/19/21 05/19/21 05/19/21 05:23 05:23 11:24 WBC RBC Hgb Hct MCV MCHC RDW Plt Count Lymph % (Auto) [place] % (Auto) Lymph # (Auto) [place] # (Auto) Seg Neutrophils % Seg Neuts % (Manual) Lymphocytes % (Manual) Monocytes % (Manual) Seg Neutrophils # Seg Neutrophils # Man Lymphocytes # (Manual) Monocytes # (Manual) Haptoglobin PT APTT D-Dimer Heparin Anti-Xa Level ABG pH ABG pO2 ABG HCO3 ABG O2 Saturation ABG Base Excess ABG Hemoglobin Oxyhemoglobin Sodium Potassium Chloride Carbon Dioxide BUN 35 H 34 H Creatinine 2.0 H 2.1 H Glucose POC Glucose 111 H Calcium Phosphorus Magnesium Iron TIBC Ferritin Total Bilirubin AST ALT Lactate Dehydrogenase Total Creatine Kinase Troponin T C-Reactive Protein Albumin Urine WBC (Auto) Urine Creatinine Urine Total Protein Complement C3 Coronavirus (PCR) Hepatitis C Antibody Crossmatch 05/19/21 05/19/21 05/19/21 16:33 19:36 23:47 WBC RBC Hgb Hct MCV MCHC RDW Plt Count Lymph % (Auto) [place] % (Auto) Lymph # (Auto) [place] # (Auto) Seg Neutrophils % Seg Neuts % (Manual) Lymphocytes % (Manual) Monocytes % (Manual) Seg Neutrophils # Seg Neutrophils # Man Lymphocytes # (Manual) Monocytes # (Manual) Haptoglobin PT APTT 72.5 H* D-Dimer Heparin Anti-Xa Level ABG pH ABG pO2 ABG HCO3 ABG O2 Saturation ABG Base Excess ABG Hemoglobin Oxyhemoglobin Sodium Potassium Chloride Carbon Dioxide BUN Creatinine Glucose POC Glucose 131 H 122 H Calcium Phosphorus Magnesium Iron TIBC Ferritin Total Bilirubin AST ALT Lactate Dehydrogenase Total Creatine Kinase Troponin T C-Reactive Protein Albumin Urine WBC (Auto) Urine Creatinine Urine Total Protein Complement C3 Coronavirus (PCR) Hepatitis C Antibody Crossmatch 05/20/21 05/20/21 05/20/21 05:14 05:14 06:12 WBC 19.7 H RBC 3.19 L Hgb 9.5 L Hct 29.9 L MCV MCHC RDW 17.3 H Plt Count Lymph % (Auto) [place] % (Auto) Lymph # (Auto) [place] # (Auto) Seg Neutrophils % Seg Neuts % (Manual) Lymphocytes % (Manual) Monocytes % (Manual) Seg Neutrophils # Seg Neutrophils # Man Lymphocytes # (Manual) Monocytes # (Manual) Haptoglobin PT APTT D-Dimer Heparin Anti-Xa Level ABG pH ABG pO2 ABG HCO3 ABG O2 Saturation ABG Base Excess ABG Hemoglobin Oxyhemoglobin Sodium Potassium Chloride Carbon Dioxide BUN 31 H Creatinine 2.1 H Glucose 130 H POC Glucose 120 H Calcium Phosphorus Magnesium Iron TIBC Ferritin Total Bilirubin AST ALT Lactate Dehydrogenase Total Creatine Kinase Troponin T C-Reactive Protein Albumin Urine WBC (Auto) Urine Creatinine Urine Total Protein Complement C3 Coronavirus (PCR) Hepatitis C Antibody Crossmatch 05/20/21 05/20/21 05/20/21 11:10 18:12 23:55 WBC RBC Hgb Hct MCV MCHC RDW Plt Count Lymph % (Auto) [place] % (Auto) Lymph # (Auto) [place] # (Auto) Seg Neutrophils % Seg Neuts % (Manual) Lymphocytes % (Manual) Monocytes % (Manual) Seg Neutrophils # Seg Neutrophils # Man Lymphocytes # (Manual) Monocytes # (Manual) Haptoglobin PT APTT D-Dimer Heparin Anti-Xa Level ABG pH ABG pO2 ABG HCO3 ABG O2 Saturation ABG Base Excess ABG Hemoglobin Oxyhemoglobin Sodium Potassium Chloride Carbon Dioxide BUN Creatinine Glucose POC Glucose 152 H 137 H 146 H Calcium Phosphorus Magnesium Iron TIBC Ferritin Total Bilirubin AST ALT Lactate Dehydrogenase Total Creatine Kinase Troponin T C-Reactive Protein Albumin Urine WBC (Auto) Urine Creatinine Urine Total Protein Complement C3 Coronavirus (PCR) Hepatitis C Antibody Crossmatch 05/21/21 05/21/21 05/21/21 03:12 03:12 05:53 WBC 26.2 H RBC 2.58 L Hgb 7.7 L Hct 24.2 L MCV MCHC RDW 17.8 H Plt Count Lymph % (Auto) [place] % (Auto) Lymph # (Auto) [place] # (Auto) Seg Neutrophils % Seg Neuts % (Manual) Lymphocytes % (Manual) Monocytes % (Manual) Seg Neutrophils # Seg Neutrophils # Man Lymphocytes # (Manual) Monocytes # (Manual) Haptoglobin PT APTT D-Dimer Heparin Anti-Xa Level ABG pH ABG pO2 ABG HCO3 ABG O2 Saturation ABG Base Excess ABG Hemoglobin Oxyhemoglobin Sodium 133 L Potassium 5.7 H D Chloride Carbon Dioxide 21 L BUN 49 H Creatinine 2.6 H Glucose 160 H POC Glucose 118 H Calcium Phosphorus Magnesium Iron TIBC Ferritin Total Bilirubin AST ALT Lactate Dehydrogenase Total Creatine Kinase Troponin T C-Reactive Protein Albumin Urine WBC (Auto) Urine Creatinine Urine Total Protein Complement C3 Coronavirus (PCR) Hepatitis C Antibody Crossmatch 05/21/21 05/22/21 05/22/21 18:00 00:13 05:05 WBC RBC Hgb Hct MCV MCHC RDW Plt Count Lymph % (Auto) [place] % (Auto) Lymph # (Auto) [place] # (Auto) Seg Neutrophils % Seg Neuts % (Manual) Lymphocytes % (Manual) Monocytes % (Manual) Seg Neutrophils # Seg Neutrophils # Man Lymphocytes # (Manual) Monocytes # (Manual) Haptoglobin PT APTT D-Dimer Heparin Anti-Xa Level ABG pH 7.500 H ABG pO2 56.6 L ABG HCO3 ABG O2 Saturation ABG Base Excess ABG Hemoglobin 6.7 L Oxyhemoglobin 94.8 L Sodium 136 L Potassium 5.2 H Chloride Carbon Dioxide BUN 59 H Creatinine 2.6 H Glucose 138 H POC Glucose 109 H Calcium Phosphorus Magnesium Iron TIBC Ferritin Total Bilirubin AST ALT Lactate Dehydrogenase Total Creatine Kinase Troponin T C-Reactive Protein Albumin Urine WBC (Auto) Urine Creatinine Urine Total Protein Complement C3 Coronavirus (PCR) Hepatitis C Antibody Crossmatch 05/22/21 05/22/21 05/22/21 06:07 11:49 16:33 WBC RBC Hgb Hct MCV MCHC RDW Plt Count Lymph % (Auto) [place] % (Auto) Lymph # (Auto) [place] # (Auto) Seg Neutrophils % Seg Neuts % (Manual) Lymphocytes % (Manual) Monocytes % (Manual) Seg Neutrophils # Seg Neutrophils # Man Lymphocytes # (Manual) Monocytes # (Manual) Haptoglobin PT APTT D-Dimer Heparin Anti-Xa Level ABG pH ABG pO2 ABG HCO3 ABG O2 Saturation ABG Base Excess ABG Hemoglobin Oxyhemoglobin Sodium Potassium Chloride Carbon Dioxide BUN Creatinine Glucose POC Glucose 110 H 117 H 119 H Calcium Phosphorus Magnesium Iron TIBC Ferritin Total Bilirubin AST ALT Lactate Dehydrogenase Total Creatine Kinase Troponin T C-Reactive Protein Albumin Urine WBC (Auto) Urine Creatinine Urine Total Protein Complement C3 Coronavirus (PCR) Hepatitis C Antibody Crossmatch 05/23/21 05/23/21 05/23/21 04:48 04:48 07:12 WBC 21.1 H RBC 2.03 L Hgb 6.2 L Hct 19.4 L* MCV 96 H MCHC RDW 17.5 H Plt Count Lymph % (Auto) [place] % (Auto) Lymph # (Auto) [place] # (Auto) Seg Neutrophils % Seg Neuts % (Manual) Lymphocytes % (Manual) Monocytes % (Manual) Seg Neutrophils # Seg Neutrophils # Man Lymphocytes # (Manual) Monocytes # (Manual) Haptoglobin PT APTT D-Dimer Heparin Anti-Xa Level ABG pH ABG pO2 ABG HCO3 ABG O2 Saturation ABG Base Excess ABG Hemoglobin Oxyhemoglobin Sodium Potassium Chloride Carbon Dioxide BUN 62 H Creatinine 2.8 H Glucose 110 H POC Glucose Calcium Phosphorus Magnesium Iron TIBC Ferritin Total Bilirubin AST ALT Lactate Dehydrogenase Total Creatine Kinase Troponin T C-Reactive Protein Albumin Urine WBC (Auto) Urine Creatinine Urine Total Protein Complement C3 Coronavirus (PCR) Hepatitis C Antibody Crossmatch See Detail 05/23/21 05/23/21 05/23/21 11:19 14:15 16:12 WBC RBC Hgb Hct MCV MCHC RDW Plt Count Lymph % (Auto) [place] % (Auto) Lymph # (Auto) [place] # (Auto) Seg Neutrophils % Seg Neuts % (Manual) Lymphocytes % (Manual) Monocytes % (Manual) Seg Neutrophils # Seg Neutrophils # Man Lymphocytes # (Manual) Monocytes # (Manual) Haptoglobin PT APTT D-Dimer Heparin Anti-Xa Level ABG pH ABG pO2 294.7 H ABG HCO3 ABG O2 Saturation 99.5 H ABG Base Excess ABG Hemoglobin 6.5 L Oxyhemoglobin Sodium Potassium Chloride Carbon Dioxide BUN Creatinine Glucose POC Glucose 127 H 120 H Calcium Phosphorus Magnesium Iron TIBC Ferritin Total Bilirubin AST ALT Lactate Dehydrogenase Total Creatine Kinase Troponin T C-Reactive Protein Albumin Urine WBC (Auto) Urine Creatinine Urine Total Protein Complement C3 Coronavirus (PCR) Hepatitis C Antibody Crossmatch 05/23/21 05/23/21 05/23/21 16:30 16:30 18:54 WBC RBC Hgb Hct MCV MCHC RDW Plt Count Lymph % (Auto) [place] % (Auto) Lymph # (Auto) [place] # (Auto) Seg Neutrophils % Seg Neuts % (Manual) Lymphocytes % (Manual) Monocytes % (Manual) Seg Neutrophils # Seg Neutrophils # Man Lymphocytes # (Manual) Monocytes # (Manual) Haptoglobin 254 H PT APTT D-Dimer Heparin Anti-Xa Level ABG pH ABG pO2 ABG HCO3 ABG O2 Saturation ABG Base Excess ABG Hemoglobin Oxyhemoglobin Sodium Potassium Chloride Carbon Dioxide BUN Creatinine Glucose POC Glucose Calcium Phosphorus Magnesium Iron TIBC Ferritin Total Bilirubin AST ALT Lactate Dehydrogenase Total Creatine Kinase Troponin T C-Reactive Protein Albumin Urine WBC (Auto) 12.0 H Urine Creatinine 100.1 H Urine Total Protein Complement C3 Coronavirus (PCR) Hepatitis C Antibody Crossmatch 05/23/21 05/23/21 05/24/21 18:54 Unknown 00:11 WBC 21.7 H RBC 2.40 L Hgb 7.1 L Hct 22.9 L MCV 96 H MCHC 31 L RDW 16.8 H Plt Count Lymph % (Auto) [place] % (Auto) Lymph # (Auto) [place] # (Auto) Seg Neutrophils % Seg Neuts % (Manual) Lymphocytes % (Manual) Monocytes % (Manual) Seg Neutrophils # Seg Neutrophils # Man Lymphocytes # (Manual) Monocytes # (Manual) Haptoglobin PT APTT D-Dimer Heparin Anti-Xa Level ABG pH ABG pO2 ABG HCO3 ABG O2 Saturation ABG Base Excess ABG Hemoglobin Oxyhemoglobin Sodium Potassium Chloride Carbon Dioxide BUN Creatinine Glucose POC Glucose 110 H Calcium Phosphorus Magnesium Iron 10 L TIBC 151 L Ferritin Total Bilirubin AST ALT Lactate Dehydrogenase 311 H Total Creatine Kinase Troponin T C-Reactive Protein Albumin Urine WBC (Auto) Urine Creatinine Urine Total Protein Complement C3 Coronavirus (PCR) Hepatitis C Antibody Crossmatch 05/24/21 05/24/21 05/24/21 04:11 04:11 05:10 WBC 16.7 H RBC 2.19 L Hgb 6.4 L Hct 20.5 L MCV MCHC 31 L RDW 17.0 H Plt Count Lymph % (Auto) [place] % (Auto) Lymph # (Auto) [place] # (Auto) Seg Neutrophils % Seg Neuts % (Manual) Lymphocytes % (Manual) Monocytes % (Manual) Seg Neutrophils # Seg Neutrophils # Man Lymphocytes # (Manual) Monocytes # (Manual) Haptoglobin PT APTT D-Dimer Heparin Anti-Xa Level ABG pH ABG pO2 ABG HCO3 ABG O2 Saturation ABG Base Excess ABG Hemoglobin Oxyhemoglobin Sodium Potassium Chloride Carbon Dioxide BUN 78 H Creatinine 2.8 H Glucose 119 H POC Glucose 108 H Calcium Phosphorus 5.30 H Magnesium 2.60 H Iron TIBC Ferritin Total Bilirubin AST 152 H ALT 125 H Lactate Dehydrogenase Total Creatine Kinase Troponin T C-Reactive Protein Albumin 2.5 L Urine WBC (Auto) Urine Creatinine Urine Total Protein Complement C3 Coronavirus (PCR) Hepatitis C Antibody Crossmatch 05/24/21 05/25/21 05/25/21 09:55 04:25 04:25 WBC 13.8 H RBC 2.78 L Hgb 8.3 L Hct 25.6 L MCV MCHC RDW 16.2 H Plt Count Lymph % (Auto) [place] % (Auto) Lymph # (Auto) [place] # (Auto) Seg Neutrophils % Seg Neuts % (Manual) Lymphocytes % (Manual) Monocytes % (Manual) Seg Neutrophils # Seg Neutrophils # Man Lymphocytes # (Manual) Monocytes # (Manual) Haptoglobin PT APTT D-Dimer Heparin Anti-Xa Level ABG pH ABG pO2 141.9 H ABG HCO3 ABG O2 Saturation ABG Base Excess ABG Hemoglobin 6.5 L Oxyhemoglobin Sodium Potassium Chloride Carbon Dioxide BUN 76 H Creatinine 2.6 H Glucose 110 H POC Glucose Calcium 8.1 L Phosphorus Magnesium Iron TIBC Ferritin Total Bilirubin AST ALT Lactate Dehydrogenase Total Creatine Kinase Troponin T C-Reactive Protein Albumin Urine WBC (Auto) Urine Creatinine Urine Total Protein Complement C3 Coronavirus (PCR) Hepatitis C Antibody Crossmatch 05/25/21 05/25/21 05/25/21 05:19 09:40 17:11 WBC RBC Hgb Hct MCV MCHC RDW Plt Count Lymph % (Auto) [place] % (Auto) Lymph # (Auto) [place] # (Auto) Seg Neutrophils % Seg Neuts % (Manual) Lymphocytes % (Manual) Monocytes % (Manual) Seg Neutrophils # Seg Neutrophils # Man Lymphocytes # (Manual) Monocytes # (Manual) Haptoglobin PT APTT D-Dimer Heparin Anti-Xa Level ABG pH ABG pO2 150.9 H ABG HCO3 ABG O2 Saturation ABG Base Excess ABG Hemoglobin 7.0 L Oxyhemoglobin Sodium Potassium Chloride Carbon Dioxide BUN Creatinine Glucose POC Glucose 123 H 108 H Calcium Phosphorus Magnesium Iron TIBC Ferritin Total Bilirubin AST ALT Lactate Dehydrogenase Total Creatine Kinase Troponin T C-Reactive Protein Albumin Urine WBC (Auto) Urine Creatinine Urine Total Protein Complement C3 Coronavirus (PCR) Hepatitis C Antibody Crossmatch 05/25/21 05/26/21 05/26/21 23:37 05:02 07:09 WBC RBC Hgb Hct MCV MCHC RDW Plt Count Lymph % (Auto) [place] % (Auto) Lymph # (Auto) [place] # (Auto) Seg Neutrophils % Seg Neuts % (Manual) Lymphocytes % (Manual) Monocytes % (Manual) Seg Neutrophils # Seg Neutrophils # Man Lymphocytes # (Manual) Monocytes # (Manual) Haptoglobin PT APTT D-Dimer Heparin Anti-Xa Level ABG pH ABG pO2 ABG HCO3 ABG O2 Saturation ABG Base Excess ABG Hemoglobin Oxyhemoglobin Sodium Potassium Chloride Carbon Dioxide BUN 62 H Creatinine 2.1 H Glucose 112 H POC Glucose 117 H 112 H Calcium 8.2 L Phosphorus Magnesium Iron TIBC Ferritin Total Bilirubin AST ALT Lactate Dehydrogenase Total Creatine Kinase Troponin T C-Reactive Protein Albumin Urine WBC (Auto) Urine Creatinine Urine Total Protein Complement C3 Coronavirus (PCR) Hepatitis C Antibody Crossmatch 05/26/21 05/26/21 05/26/21 07:09 09:10 09:50 WBC 15.8 H RBC 3.21 L Hgb 9.2 L Hct 29.6 L MCV MCHC 31 L RDW 16.6 H Plt Count Lymph % (Auto) [place] % (Auto) Lymph # (Auto) [place] # (Auto) Seg Neutrophils % Seg Neuts % (Manual) Lymphocytes % (Manual) Monocytes % (Manual) Seg Neutrophils # Seg Neutrophils # Man Lymphocytes # (Manual) Monocytes # (Manual) Haptoglobin PT APTT D-Dimer Heparin Anti-Xa Level ABG pH ABG pO2 135.5 H ABG HCO3 ABG O2 Saturation ABG Base Excess ABG Hemoglobin 9.6 L Oxyhemoglobin Sodium Potassium Chloride Carbon Dioxide BUN Creatinine Glucose POC Glucose Calcium Phosphorus Magnesium Iron TIBC Ferritin Total Bilirubin AST ALT Lactate Dehydrogenase Total Creatine Kinase Troponin T C-Reactive Protein Albumin Urine WBC (Auto) 38.0 H Urine Creatinine Urine Total Protein Complement C3 Coronavirus (PCR) Hepatitis C Antibody Crossmatch 05/26/21 05/26/21 05/27/21 11:20 18:24 00:24 WBC RBC Hgb Hct MCV MCHC RDW Plt Count Lymph % (Auto) [place] % (Auto) Lymph # (Auto) [place] # (Auto) Seg Neutrophils % Seg Neuts % (Manual) Lymphocytes % (Manual) Monocytes % (Manual) Seg Neutrophils # Seg Neutrophils # Man Lymphocytes # (Manual) Monocytes # (Manual) Haptoglobin PT APTT D-Dimer Heparin Anti-Xa Level ABG pH ABG pO2 ABG HCO3 ABG O2 Saturation ABG Base Excess ABG Hemoglobin Oxyhemoglobin Sodium Potassium Chloride Carbon Dioxide BUN Creatinine Glucose POC Glucose 109 H 116 H 115 H Calcium Phosphorus Magnesium Iron TIBC Ferritin Total Bilirubin AST ALT Lactate Dehydrogenase Total Creatine Kinase Troponin T C-Reactive Protein Albumin Urine WBC (Auto) Urine Creatinine Urine Total Protein Complement C3 Coronavirus (PCR) Hepatitis C Antibody Crossmatch 05/27/21 05/27/21 05/27/21 05:12 07:47 07:47 WBC 15.5 H RBC 2.86 L Hgb 8.8 L Hct 26.1 L MCV MCHC RDW 16.1 H Plt Count Lymph % (Auto) [place] % (Auto) Lymph # (Auto) [place] # (Auto) Seg Neutrophils % Seg Neuts % (Manual) Lymphocytes % (Manual) Monocytes % (Manual) Seg Neutrophils # Seg Neutrophils # Man Lymphocytes # (Manual) Monocytes # (Manual) Haptoglobin PT APTT D-Dimer Heparin Anti-Xa Level ABG pH ABG pO2 ABG HCO3 ABG O2 Saturation ABG Base Excess ABG Hemoglobin Oxyhemoglobin Sodium Potassium Chloride 107.3 H Carbon Dioxide BUN 56 H Creatinine 1.8 H Glucose 108 H POC Glucose 108 H Calcium 8.1 L Phosphorus Magnesium Iron TIBC Ferritin Total Bilirubin AST ALT Lactate Dehydrogenase Total Creatine Kinase Troponin T C-Reactive Protein Albumin Urine WBC (Auto) Urine Creatinine Urine Total Protein Complement C3 Coronavirus (PCR) Hepatitis C Antibody Crossmatch 05/27/21 05/27/21 05/28/21 09:20 18:01 00:09 WBC RBC Hgb Hct MCV MCHC RDW Plt Count Lymph % (Auto) [place] % (Auto) Lymph # (Auto) [place] # (Auto) Seg Neutrophils % Seg Neuts % (Manual) Lymphocytes % (Manual) Monocytes % (Manual) Seg Neutrophils # Seg Neutrophils # Man Lymphocytes # (Manual) Monocytes # (Manual) Haptoglobin PT APTT D-Dimer Heparin Anti-Xa Level ABG pH ABG pO2 115.2 H ABG HCO3 ABG O2 Saturation ABG Base Excess ABG Hemoglobin 9.2 L Oxyhemoglobin Sodium Potassium Chloride Carbon Dioxide BUN Creatinine Glucose POC Glucose 109 H 114 H Calcium Phosphorus Magnesium Iron TIBC Ferritin Total Bilirubin AST ALT Lactate Dehydrogenase Total Creatine Kinase Troponin T C-Reactive Protein Albumin Urine WBC (Auto) Urine Creatinine Urine Total Protein Complement C3 Coronavirus (PCR) Hepatitis C Antibody Crossmatch 05/28/21 05/28/21 05/28/21 04:04 04:04 04:04 WBC 14.1 H RBC 2.87 L Hgb 8.6 L Hct 26.5 L MCV MCHC RDW 15.9 H Plt Count Lymph % (Auto) [place] % (Auto) Lymph # (Auto) [place] # (Auto) Seg Neutrophils % Seg Neuts % (Manual) 93.0 H Lymphocytes % (Manual) 2.0 L Monocytes % (Manual) Seg Neutrophils # Seg Neutrophils # Man 13.1 H Lymphocytes # (Manual) 0.3 L Monocytes # (Manual) Haptoglobin PT APTT D-Dimer Heparin Anti-Xa Level ABG pH ABG pO2 ABG HCO3 ABG O2 Saturation ABG Base Excess ABG Hemoglobin Oxyhemoglobin Sodium Potassium Chloride Carbon Dioxide BUN 54 H Creatinine 1.7 H Glucose 116 H POC Glucose Calcium 7.7 L Phosphorus Magnesium Iron TIBC Ferritin Total Bilirubin AST ALT Lactate Dehydrogenase Total Creatine Kinase Troponin T C-Reactive Protein 13.20 H Albumin Urine WBC (Auto) Urine Creatinine Urine Total Protein Complement C3 Coronavirus (PCR) Hepatitis C Antibody Crossmatch 05/28/21 05/28/21 05/28/21 05:32 12:06 17:30 WBC RBC Hgb Hct MCV MCHC RDW Plt Count Lymph % (Auto) [place] % (Auto) Lymph # (Auto) [place] # (Auto) Seg Neutrophils % Seg Neuts % (Manual) Lymphocytes % (Manual) Monocytes % (Manual) Seg Neutrophils # Seg Neutrophils # Man Lymphocytes # (Manual) Monocytes # (Manual) Haptoglobin PT APTT D-Dimer Heparin Anti-Xa Level ABG pH ABG pO2 ABG HCO3 ABG O2 Saturation ABG Base Excess ABG Hemoglobin Oxyhemoglobin Sodium Potassium Chloride Carbon Dioxide BUN Creatinine Glucose POC Glucose 119 H 112 H 114 H Calcium Phosphorus Magnesium Iron TIBC Ferritin Total Bilirubin AST ALT Lactate Dehydrogenase Total Creatine Kinase Troponin T C-Reactive Protein Albumin Urine WBC (Auto) Urine Creatinine Urine Total Protein Complement C3 Coronavirus (PCR) Hepatitis C Antibody Crossmatch 05/28/21 05/29/21 05/29/21 23:46 05:16 11:16 WBC 12.2 H RBC 2.94 L Hgb 8.7 L Hct 27.2 L MCV MCHC RDW 15.8 H Plt Count Lymph % (Auto) [place] % (Auto) Lymph # (Auto) [place] # (Auto) Seg Neutrophils % Seg Neuts % (Manual) Lymphocytes % (Manual) Monocytes % (Manual) Seg Neutrophils # Seg Neutrophils # Man Lymphocytes # (Manual) Monocytes # (Manual) Haptoglobin PT APTT D-Dimer Heparin Anti-Xa Level ABG pH ABG pO2 ABG HCO3 ABG O2 Saturation ABG Base Excess ABG Hemoglobin Oxyhemoglobin Sodium Potassium Chloride Carbon Dioxide BUN Creatinine Glucose POC Glucose 108 H 113 H Calcium Phosphorus Magnesium Iron TIBC Ferritin Total Bilirubin AST ALT Lactate Dehydrogenase Total Creatine Kinase Troponin T C-Reactive Protein Albumin Urine WBC (Auto) Urine Creatinine Urine Total Protein Complement C3 Coronavirus (PCR) Hepatitis C Antibody Crossmatch 05/29/21 05/29/21 05/29/21 11:16 17:25 23:26 WBC RBC Hgb Hct MCV MCHC RDW Plt Count Lymph % (Auto) [place] % (Auto) Lymph # (Auto) [place] # (Auto) Seg Neutrophils % Seg Neuts % (Manual) Lymphocytes % (Manual) Monocytes % (Manual) Seg Neutrophils # Seg Neutrophils # Man Lymphocytes # (Manual) Monocytes # (Manual) Haptoglobin PT APTT D-Dimer Heparin Anti-Xa Level ABG pH ABG pO2 ABG HCO3 ABG O2 Saturation ABG Base Excess ABG Hemoglobin Oxyhemoglobin Sodium Potassium Chloride Carbon Dioxide BUN 50 H Creatinine 1.5 H Glucose 117 H POC Glucose 115 H 110 H Calcium 8.0 L Phosphorus Magnesium Iron TIBC Ferritin Total Bilirubin AST ALT Lactate Dehydrogenase Total Creatine Kinase Troponin T C-Reactive Protein Albumin Urine WBC (Auto) Urine Creatinine Urine Total Protein Complement C3 Coronavirus (PCR) Hepatitis C Antibody Crossmatch 05/30/21 05/30/21 05/30/21 05:07 05:11 11:30 WBC RBC Hgb Hct MCV MCHC RDW Plt Count Lymph % (Auto) [place] % (Auto) Lymph # (Auto) [place] # (Auto) Seg Neutrophils % Seg Neuts % (Manual) Lymphocytes % (Manual) Monocytes % (Manual) Seg Neutrophils # Seg Neutrophils # Man Lymphocytes # (Manual) Monocytes # (Manual) Haptoglobin PT APTT D-Dimer Heparin Anti-Xa Level ABG pH ABG pO2 ABG HCO3 ABG O2 Saturation ABG Base Excess ABG Hemoglobin Oxyhemoglobin Sodium Potassium Chloride Carbon Dioxide BUN 55 H Creatinine 1.5 H Glucose 129 H POC Glucose 113 H 110 H Calcium 8.2 L Phosphorus Magnesium Iron TIBC Ferritin Total Bilirubin AST ALT Lactate Dehydrogenase Total Creatine Kinase Troponin T C-Reactive Protein Albumin Urine WBC (Auto) Urine Creatinine Urine Total Protein Complement C3 Coronavirus (PCR) Hepatitis C Antibody Crossmatch 05/30/21 05/31/21 05/31/21 17:53 04:11 04:11 WBC RBC 3.12 L Hgb 9.3 L Hct 28.8 L MCV MCHC RDW 16.1 H Plt Count Lymph % (Auto) [place] % (Auto) Lymph # (Auto) [place] # (Auto) Seg Neutrophils % Seg Neuts % (Manual) Lymphocytes % (Manual) Monocytes % (Manual) Seg Neutrophils # Seg Neutrophils # Man Lymphocytes # (Manual) Monocytes # (Manual) Haptoglobin PT APTT D-Dimer Heparin Anti-Xa Level ABG pH ABG pO2 ABG HCO3 ABG O2 Saturation ABG Base Excess ABG Hemoglobin Oxyhemoglobin Sodium Potassium Chloride Carbon Dioxide BUN 50 H Creatinine 1.4 H Glucose 117 H POC Glucose 107 H Calcium 8.0 L Phosphorus Magnesium Iron TIBC Ferritin Total Bilirubin AST ALT Lactate Dehydrogenase Total Creatine Kinase Troponin T C-Reactive Protein Albumin Urine WBC (Auto) Urine Creatinine Urine Total Protein Complement C3 Coronavirus (PCR) Hepatitis C Antibody Crossmatch 05/31/21 05/31/21 06/01/21 11:36 18:27 04:56 WBC RBC 3.14 L Hgb 9.1 L Hct 29.0 L MCV MCHC RDW 16.3 H Plt Count Lymph % (Auto) [place] % (Auto) Lymph # (Auto) [place] # (Auto) Seg Neutrophils % Seg Neuts % (Manual) Lymphocytes % (Manual) Monocytes % (Manual) Seg Neutrophils # Seg Neutrophils # Man Lymphocytes # (Manual) Monocytes # (Manual) Haptoglobin PT APTT D-Dimer Heparin Anti-Xa Level ABG pH ABG pO2 ABG HCO3 ABG O2 Saturation ABG Base Excess ABG Hemoglobin Oxyhemoglobin Sodium Potassium Chloride Carbon Dioxide BUN Creatinine Glucose POC Glucose 109 H 111 H Calcium Phosphorus Magnesium Iron TIBC Ferritin Total Bilirubin AST ALT Lactate Dehydrogenase Total Creatine Kinase Troponin T C-Reactive Protein Albumin Urine WBC (Auto) Urine Creatinine Urine Total Protein Complement C3 Coronavirus (PCR) Hepatitis C Antibody Crossmatch 06/01/21 06/01/21 06/01/21 04:56 06:10 11:04 WBC RBC Hgb Hct MCV MCHC RDW Plt Count Lymph % (Auto) [place] % (Auto) Lymph # (Auto) [place] # (Auto) Seg Neutrophils % Seg Neuts % (Manual) Lymphocytes % (Manual) Monocytes % (Manual) Seg Neutrophils # Seg Neutrophils # Man Lymphocytes # (Manual) Monocytes # (Manual) Haptoglobin PT APTT D-Dimer Heparin Anti-Xa Level ABG pH ABG pO2 ABG HCO3 ABG O2 Saturation ABG Base Excess ABG Hemoglobin Oxyhemoglobin Sodium Potassium Chloride 108.4 H Carbon Dioxide BUN 49 H Creatinine Glucose 113 H POC Glucose 107 H 122 H Calcium 8.0 L Phosphorus Magnesium Iron TIBC Ferritin Total Bilirubin AST ALT Lactate Dehydrogenase Total Creatine Kinase Troponin T C-Reactive Protein Albumin Urine WBC (Auto) Urine Creatinine Urine Total Protein Complement C3 Coronavirus (PCR) Hepatitis C Antibody Crossmatch 06/01/21 06/01/21 06/02/21 15:50 23:19 04:06 WBC RBC Hgb Hct MCV MCHC RDW Plt Count Lymph % (Auto) [place] % (Auto) Lymph # (Auto) [place] # (Auto) Seg Neutrophils % Seg Neuts % (Manual) Lymphocytes % (Manual) Monocytes % (Manual) Seg Neutrophils # Seg Neutrophils # Man Lymphocytes # (Manual) Monocytes # (Manual) Haptoglobin PT APTT D-Dimer Heparin Anti-Xa Level ABG pH ABG pO2 ABG HCO3 ABG O2 Saturation ABG Base Excess ABG Hemoglobin Oxyhemoglobin Sodium Potassium Chloride Carbon Dioxide BUN 46 H Creatinine Glucose 121 H POC Glucose 111 H 117 H Calcium Phosphorus Magnesium Iron TIBC Ferritin Total Bilirubin AST ALT Lactate Dehydrogenase Total Creatine Kinase Troponin T C-Reactive Protein Albumin Urine WBC (Auto) Urine Creatinine Urine Total Protein Complement C3 Coronavirus (PCR) Hepatitis C Antibody Crossmatch 06/02/21 06/02/21 06/02/21 05:08 11:06 15:40 WBC RBC Hgb Hct MCV MCHC RDW Plt Count Lymph % (Auto) [place] % (Auto) Lymph # (Auto) [place] # (Auto) Seg Neutrophils % Seg Neuts % (Manual) Lymphocytes % (Manual) Monocytes % (Manual) Seg Neutrophils # Seg Neutrophils # Man Lymphocytes # (Manual) Monocytes # (Manual) Haptoglobin PT APTT D-Dimer Heparin Anti-Xa Level ABG pH ABG pO2 ABG HCO3 ABG O2 Saturation ABG Base Excess ABG Hemoglobin Oxyhemoglobin Sodium Potassium Chloride Carbon Dioxide BUN Creatinine Glucose POC Glucose 120 H 119 H 125 H Calcium Phosphorus Magnesium Iron TIBC Ferritin Total Bilirubin AST ALT Lactate Dehydrogenase Total Creatine Kinase Troponin T C-Reactive Protein Albumin Urine WBC (Auto) Urine Creatinine Urine Total Protein Complement C3 Coronavirus (PCR) Hepatitis C Antibody Crossmatch 06/02/21 06/03/21 06/03/21 23:27 04:15 04:15 WBC RBC 3.40 L Hgb 10.0 L Hct 31.3 L MCV MCHC RDW 16.0 H Plt Count 463 H Lymph % (Auto) [place] % (Auto) Lymph # (Auto) [place] # (Auto) Seg Neutrophils % Seg Neuts % (Manual) Lymphocytes % (Manual) Monocytes % (Manual) Seg Neutrophils # Seg Neutrophils # Man Lymphocytes # (Manual) Monocytes # (Manual) Haptoglobin PT APTT D-Dimer Heparin Anti-Xa Level ABG pH ABG pO2 ABG HCO3 ABG O2 Saturation ABG Base Excess ABG Hemoglobin Oxyhemoglobin Sodium Potassium Chloride Carbon Dioxide BUN 44 H Creatinine Glucose 115 H POC Glucose 115 H Calcium Phosphorus Magnesium Iron TIBC Ferritin Total Bilirubin AST ALT Lactate Dehydrogenase Total Creatine Kinase Troponin T C-Reactive Protein Albumin Urine WBC (Auto) Urine Creatinine Urine Total Protein Complement C3 Coronavirus (PCR) Hepatitis C Antibody Crossmatch 06/03/21 06/03/21 06/03/21 10:52 16:32 23:37 WBC RBC Hgb Hct MCV MCHC RDW Plt Count Lymph % (Auto) [place] % (Auto) Lymph # (Auto) [place] # (Auto) Seg Neutrophils % Seg Neuts % (Manual) Lymphocytes % (Manual) Monocytes % (Manual) Seg Neutrophils # Seg Neutrophils # Man Lymphocytes # (Manual) Monocytes # (Manual) Haptoglobin PT APTT D-Dimer Heparin Anti-Xa Level ABG pH ABG pO2 ABG HCO3 ABG O2 Saturation ABG Base Excess ABG Hemoglobin Oxyhemoglobin Sodium Potassium Chloride Carbon Dioxide BUN Creatinine Glucose POC Glucose 113 H 106 H 114 H Calcium Phosphorus Magnesium Iron TIBC Ferritin Total Bilirubin AST ALT Lactate Dehydrogenase Total Creatine Kinase Troponin T C-Reactive Protein Albumin Urine WBC (Auto) Urine Creatinine Urine Total Protein Complement C3 Coronavirus (PCR) Hepatitis C Antibody Crossmatch 06/04/21 06/04/21 06/04/21 05:31 17:28 23:19 WBC RBC Hgb Hct MCV MCHC RDW Plt Count Lymph % (Auto) [place] % (Auto) Lymph # (Auto) [place] # (Auto) Seg Neutrophils % Seg Neuts % (Manual) Lymphocytes % (Manual) Monocytes % (Manual) Seg Neutrophils # Seg Neutrophils # Man Lymphocytes # (Manual) Monocytes # (Manual) Haptoglobin PT APTT D-Dimer Heparin Anti-Xa Level ABG pH ABG pO2 ABG HCO3 ABG O2 Saturation ABG Base Excess ABG Hemoglobin Oxyhemoglobin Sodium Potassium Chloride Carbon Dioxide BUN Creatinine Glucose POC Glucose 121 H 106 H 106 H Calcium Phosphorus Magnesium Iron TIBC Ferritin Total Bilirubin AST ALT Lactate Dehydrogenase Total Creatine Kinase Troponin T C-Reactive Protein Albumin Urine WBC (Auto) Urine Creatinine Urine Total Protein Complement C3 Coronavirus (PCR) Hepatitis C Antibody Crossmatch 06/05/21 06/05/21 06/05/21 04:24 04:24 05:43 WBC 11.1 H RBC 3.23 L Hgb 9.9 L Hct 29.4 L MCV MCHC RDW 16.3 H Plt Count 501 H Lymph % (Auto) [place] % (Auto) Lymph # (Auto) [place] # (Auto) Seg Neutrophils % Seg Neuts % (Manual) Lymphocytes % (Manual) Monocytes % (Manual) Seg Neutrophils # Seg Neutrophils # Man Lymphocytes # (Manual) Monocytes # (Manual) Haptoglobin PT APTT D-Dimer Heparin Anti-Xa Level ABG pH ABG pO2 ABG HCO3 ABG O2 Saturation ABG Base Excess ABG Hemoglobin Oxyhemoglobin Sodium Potassium Chloride Carbon Dioxide BUN 41 H Creatinine Glucose 120 H POC Glucose 106 H Calcium Phosphorus Magnesium Iron TIBC Ferritin Total Bilirubin AST ALT Lactate Dehydrogenase Total Creatine Kinase Troponin T C-Reactive Protein Albumin Urine WBC (Auto) Urine Creatinine Urine Total Protein Complement C3 Coronavirus (PCR) Hepatitis C Antibody Crossmatch 06/05/21 06/05/21 06/05/21 10:52 15:55 23:26 WBC RBC Hgb Hct MCV MCHC RDW Plt Count Lymph % (Auto) [place] % (Auto) Lymph # (Auto) [place] # (Auto) Seg Neutrophils % Seg Neuts % (Manual) Lymphocytes % (Manual) Monocytes % (Manual) Seg Neutrophils # Seg Neutrophils # Man Lymphocytes # (Manual) Monocytes # (Manual) Haptoglobin PT APTT D-Dimer Heparin Anti-Xa Level ABG pH ABG pO2 ABG HCO3 ABG O2 Saturation ABG Base Excess ABG Hemoglobin Oxyhemoglobin Sodium Potassium Chloride Carbon Dioxide BUN Creatinine Glucose POC Glucose 108 H 118 H 107 H Calcium Phosphorus Magnesium Iron TIBC Ferritin Total Bilirubin AST ALT Lactate Dehydrogenase Total Creatine Kinase Troponin T C-Reactive Protein Albumin Urine WBC (Auto) Urine Creatinine Urine Total Protein Complement C3 Coronavirus (PCR) Hepatitis C Antibody Crossmatch 06/06/21 05:12 WBC RBC Hgb Hct MCV MCHC RDW Plt Count Lymph % (Auto) [place] % (Auto) Lymph # (Auto) [place] # (Auto) Seg Neutrophils % Seg Neuts % (Manual) Lymphocytes % (Manual) Monocytes % (Manual) Seg Neutrophils # Seg Neutrophils # Man Lymphocytes # (Manual) Monocytes # (Manual) Haptoglobin PT APTT D-Dimer Heparin Anti-Xa Level ABG pH ABG pO2 ABG HCO3 ABG O2 Saturation ABG Base Excess ABG Hemoglobin Oxyhemoglobin Sodium Potassium Chloride Carbon Dioxide BUN Creatinine Glucose POC Glucose 114 H Calcium Phosphorus Magnesium Iron TIBC Ferritin Total Bilirubin AST ALT Lactate Dehydrogenase Total Creatine Kinase Troponin T C-Reactive Protein Albumin Urine WBC (Auto) Urine Creatinine Urine Total Protein Complement C3 Coronavirus (PCR) Hepatitis C Antibody Crossmatch Allied health notes reviewed: RT
[2021-06-06] MEDS ORDERED: LORazepam 2 MG/ML VIAL IV PRN (15:15)
--- NOTE | 2021-06-06 17:32 | Progress Note ---
Assessment and Plan Assessment and plan: This is a 56-year-old male with nicotine and cocaine abuse, atrial fibrillation, hypertension and chronic medication noncompliance complicated by homelessness admitted with acute hypoxic respiratory failure, COVID-19 pneumonia, transaminitis, NSTEMI, hypertensive emergency and acute kidney injury A/P Neuro: Metabolic encephalopathy, polysubstance abuse (but amphetamine and tobacco) -On CIWA protocol -s/p librium, serquel on hold -Maintain sleep-wake cycle -Avoid delirium -UDS positive for amphetamines -We will need cessation counseling when appropriate - IVP fent -no gtt Cardio: Heart failure reduced EF, cardiomyopathy, NSTEMI, paroxysmal atrial fibrillation, S/p hypertensive emergency, h/o HTN -Continue beta-sylvia, aspirin, statin, hydral, titrate as needed -Cardiology consulted, appreciate recommendations -Echo 05/04/2021-EF 35 to 40%. Moderate concentric LVH. Moderate global hypokinesis of left ventricle. Mild mitral regurgitation. Mild pulmonary hypertension. Echocardiogram (08/27/2020): LVEF is 50 to 55%. Mild to moderate concentric LVF. Severe diastolic dysfunction is present (restrictive filling). Right ventricle is mildly hypokinetic. RVSP is 48 mmHg. No valvular abnormalities. -S/p Cardizem drip for atrial fibrillation -Blood pressure monitoring per protocol Respiratory: Acute hypoxic respiratory failure -[facility] consulted, appreciate recommendations -Intubated on 05/05 in the ED and extubated 05/13, Re-intubated on 05/16 and Extubated on 05/18 -Reintubated 05/23 with 8.0 OETT at 22 cm at the lips -s/p bipap -A.m. vent settings: Assist control tidal volume 450, rate 16, PEEP 6, FiO2 25% -See RT notes for titration -PSV as tolerated -VAP bundle -Continues SPO2 monitoring -Trach and PEG- Currently on hold GI: GIB (ruled out), Transaminitis, h/o hepatitis C -GI consulted, appreciate recommendations -IV Protonix BID -s/p Protonix gtt -24-hour +109 ml -BR: Senokot -bm 06/04 -Renal ultrasound showed incidental finding of cholelithiasis -Continue supportive management -Trend LFTs : Acute kidney injury likely secondary to vasomotor nephropathy -Nephrology consulted, appreciate recommendations -s/p IVF -Avoid nephrotoxic medications -Renally dose medication -Strict intake and output -FeNa indicates prerenal -Renal ultrasound completed: 1.7 hyper echoic mass within the left upper pole -Monitor follow-up with CT once stable ID: Severe COVID-19 pneumonia, Enterobacter aerogenes PNA, s/p Enterococcus fa ecalis UTI -Infectious disease consulted, appreciate recommendations -COVID-19 PCR positive -s/p droplet/precautions for 21 days -Not a candidate for remdesivir given acute kidney injury -s/p Dexamethasone for 10 days -Anticoagulation per hospital protocol -Trend COVID-19 from 2 markers (ferritin, D-dimer, CRP, LDH) -05/09 urine culture with Enterococcus faecalis -05/16 tracheal aspirate with Enterobacter aerogenes -per ID Due to persistent fevers switched cefepime to IV ertapenem renally adjusted 05/24 -GC negative -f/u culture data -re-cultured 05/26 Heme: Anemia, Acute DVT (resolved) , leukocytosis, Thrombocytosis -Bilateral lower extremity Doppler ultrasound shows acute DVT -heparin gtt converted to DOAC but now d/c -vascular surgery consulted for possible IVC filter placement, appreciate recommendations -repeat doppler shows no DVT -subq heparin for prophylaxis -Pulmonary perfusion study showed low probability of pulmonary embolism -S/p 3 unit PRBC -Trend CBC -Transfuse for hemoglobin less than 7 Endo: NAD -Accu-Cheks every 6 -SSI -Avoid hypoglycemia The high probability of a clinically significant, sudden or life threatening deterioration of the [cardio/resp] system(s) required my full and direct attention, intervention and personal management. The aggregate critical care time was [60] minutes. This time is in addition to time spent performing reported procedures but includes the following: [x] Data Review and interpretation [x] Patient assessment and monitoring of vital signs [x] Documentation [x] Medication orders and management Disposition Plan: icu Total Time Spent with Patient (Minutes): 60 History Interval history: This is a 56-year-old male with a nicotine abuse, A. fib, hypertension, and chronic medication noncompliance and homelessness who presented to emergency department on 05/04 with complaints of dyspnea on exertion for the past month worsening over the past 3 days, intermittent left-sided chest tightness with activity, and persistent cough without fever. Work-up in the emergency department revealed anemia, hyponatremia, elevated BUN/creatinine and transaminitis. Patient was admitted to the hospitalist service with acute kidne y injury and accelerated hypertension. Hospital course to date 05/04/2021. Cardiology was considering patient for Coil Tier. However, patient with elevated creatinine therefore will hold off on cath evaluation. Nephrology consultation for acute kidney injury. Etiology likely secondary to vasomotor nephropathy/dehydration. We will start IV fluid hydration. Check renal ultrasound to rule out obstructive uropathy. We will resume home medications for the accelerated hypertension 05/05/2021. Echocardiogram reveals EF 35-40% with moderate concentric left ventricular hypertrophy. Moderate global hypokinesis of left ventricle. Mild mitral regurgitation. Mild pulmonary hypertension. Troponins are believed to be elevated in the setting of acute kidney injury. No beta-blockers due to cocaine use continue heparin and nitro drip. Continue CIWA protocol. Await urine studies 05/06/2021. Patient decompensated yesterday with worsening respiratory failure and difficulty to protect airway. Patient was breathing sonorously, and hypoxic. Patient was intubated and currently is on mechanical ventilation. Patient with AC mode ventilation rate of 20, tidal volume 450, FiO2 40% and PEEP of 6. COVID PCR testing on 05/05/2021 was found to be positive. Echocardiogram completed on this admission shows worsening EF from August 2020. Echocardiogram now reveals moderate concentric left ventricular hypertrophy with moderate global hypokinesis and EF of 35-40%. Mild pulmonary hypertension. 05/08: Continue current management, renal stable, LFTs stable and if improved will start on statin therapy. 05/09: Patient is febrile, will panculture, PSV today. CRP pending. Mucoid discharge noted from meatus which was sent for culture. Hypernatremia persists, free water flushes increased 05/10: PSV trial per [facility], T-max 102.3, given mildly elevated procalcitonin star mallory on ceftriaxone 2 g every 24 for 2 days per ID. Overnight patient had atrial fibrillation which was treated with Cardizem drip and converted to sinus rhythm. Metoprolol p.o. increased to 3 times daily. 05/11: Patient still running fevers and if still febrile tomorrow will escalate to cefepime per ID as he is currently on ceftriaxone, [facility] attempted PSV but patient became agitated and was switched back to pressure control. Lower extremity ultrasound shows acute DVT and started on heparin drip. Started on scheduled Librium. Patient remains with hypernatremia and elevated creatinine and on IV fluids. Free water flushes adjusted. Started on vancomycin today 05/12: Patient placed on pressure support trial without fentanyl, hypernatremia improving, hyperkalemia noted. Slight improvement to renal function. 05/13: Patient was extubated today, ID change antibiotics to Zosyn for Enterococ cus, was started tapering Librium in the morning, renal function slightly improved. Possible transfer to floor tomorrow. ST evaluation for swallow ordered. 05/14: Patient became hypoglycemic overnight and started on dextrose IV fluids. Accu-Chek fingersticks have been low but on a.m. BMP patient blood glucose is 100. Other BMP pending. Feeding tube replaced due to need for enteral access and patient being severely confused. Renal functions remains the same. Upon confirmation will restart tube feedings, p.o. medications and free water flushes. 05/15: Remains confused/somnolent on my encounter. Librium taper in 24hrs per PCCM recs. Remains hypertensive. Added amlodipine 10 mg NG and labetalol prn. ST eval today but doubt he will participate. Potassium replaced. Renal function improving overall, however, hypernatremic. Inc TF FWF to 250 cc q4hr. 05/16: Respiratory distress this AM, hypoxic in 60's not protecting airway. Required intubation, patient now ICU patient. Reduce fluid to FWF only, IVF d/c off jun. CXR ordered demonstrates pulmonary edema. Lasix 40 mg IV bid ordered. Troponin elevated, continue heparin gtt. Would recommend decreasing sedating medications at this point, agree with librium taper. 05/17: Patient remains on the vent and sedated, RASS -3. Plan for possible sedation vacation today. D/w CCM plan to wean for possible extubation on the vent. 2/2: Tolerated 4hrs of sedation vacation yesterday, on low dose fentanyl this am. Patient is tolerating PST this am. Plan to wean off sedation and wean vent setting for possible extubation today. 23: s/p extubation now stable on 3L NC. Lethargic this am, will decreased Seroquel. Speech consult for swallow eval, continue enteral nutrition via NGT for now. Hypertensive throughout the night, Norvac added. Remains on heparin gtt for DVT, might need to transition to PO AC, will d/w CCM. Patient is stable for transfer to [facility] 05/20: Continue sepsis work up considering fever, aspiration precautions. Discussed with nursing staff will hold am seroquel. Continue tube feed. RENAL Function remains relatively stable, possible has peaked. 05/21: Patient seen and examined, resting but still with mild increase wob, CXR concerning with right lobar infiltrate, continue antibiotics, will give kayxalate in addition due to hyperkalemia, Will discuss with ID due to rising luekocytosis possible worsening sepsis. 05/22: Patient remains on BIPAP, still sedated appearing, cxr concerning for possible aspiration, unfortunately still worsening renal status. Will continue abx and continue collaboration with pulmonary team to ensure no over sedation. Continue abx, will add kayaxlate 05/23: Patient noted to have severe anemia today, will initiate GI work up and also Hemolysis work up. Will discuss with Vascular about possible IVC filter placement. Continue BIPAP, goal is to see if we can avert re-intubation. Transfuse 1 UNIT PRBC, Will discuss with Pulmonary about holding Eliquis for now. Renal failure still ongoing. 05/24: Patient had a positive occult and was anemic again today and received PRBC. GI was consulted. Repeat Dopplers are negative for DVT vascular recommends a CT/SQ heparin if tolerated and nephrology would like to increase IV fluids per FeNa results. Decrease metoprolol, seroquel and librium. surgery consult for trach/peg 05/25: RT decreased FiO2. GI signed off, Cr slightly improved, Anemia improved. Tmax 101.4 noted, abx per ID. 05/26: Patient had a temperature spike and was recultured, no plan today changes made as patient continues to breathe over the vent, one time dose of fent patch, repeat dopllar in 1 week per [facility], miralax q hs 05/27: Added vancomycin per ID, started CPAP trials, prophylactic heparin, IV fluids stopped per ID. 05/28: No acute events reported overnight, T-max 100.6, slight improvement to BUN/creatinine. awaiting trach & PEG 05/29: Creatinine continues trending down, remains on minimal vent settings. CPAP as tolerated. 05/30: Patient remains lethargic, opened eyes and tracking this am. Librium will end tonight and decrease seroquel for now. PRN analgesics added for pain management. Patient remains with intermittent fevers, BLE doppler neg for DVT, recent cultures with NGTD, continue current IV abx per ID. LUE swelling noted, LUE doppler pending. Trach and PEG is now on hold, case management is trying to get in contact with a living relative for consent. 05/31: Low dose sedation initiated yesterday due to increase work of breathing and high RR. Patient is stable this am, appears comfortable, tolerating PST. LUE doppler noted with superficial thrombosis in the left cephalic and basilic veins, continue AC- heparin SubQ. 06/01: Off sedation this am for sedation vacation. Still drowsy, however, more alert and following simple commands. Seroquel held overnight and this am, will D/C for now. Tolerating PST this am 06/02: Back on low dose fentanyl, remains awake and tracking. Continue to tolerate PST this am. Still no living relatives have been located for patient at this time. This is day-10 since reintubation, d/w CCM possible two physicians consent for Trach and PEG is warranted at this time since we can't get in c ontact with a living relative and the dow of stated process is still pending. 06/03: HUSSEIN overnight. Patient's brother, Mingo Harrison, was located and visited patient today. Patient's condition and status was thoroughly discuss to patient's family by the attending at the bedside. Patient's brother verbalized understanding of the info given, however, he would like 24hrs or so to discuss everything with his other brother before making a decision. Patient remains a full code and we will hold off on re-consulting General Surgery until a final decision is made. Continue daily PST as tolerated. Patient next of kin- Mingo Harrison [phone]. 06/04: HUSSEIN overnight. Patient's family denied trach and PEG and opted for comfort care/Hospice. Case management to arrange possible placement to inpatient hospice. Continue daily PST as tolerated 06/05: Continue daily PST as tolerated and supportive measures. Plan for possible inpatient hospice, case management to arrange. 06/06: Risk management consulted, patient placed on SBT trial per [facility] and around 1600 patient became severely agitated and was given fentanyl IVP and placed back on rate. Next of kin to visit tomorrow. Hospitalist Physical - Constitutional Vitals: Temp Pulse Resp BP Pulse Ox 101 F H 97 H 32 H 135/78 100 06/06/21 16:00 06/06/21 16:00 06/06/21 16:00 06/06/21 16:00 06/06/21 16:00 General appearance: Present: no acute distress, other (Intubated) - EENT Eyes: Present: PERRL, EOM intact ENT: dentition normal - Neck Neck: Present: normal ROM - Respiratory Respiratory effort: normal Respiratory: bilateral: CTA, diminished - Cardiovascular Rhythm: regular Heart Sounds: Present: S1 & S2. Absent: systolic murmur, diastolic murmur - Extremities Extremities: no ischemia, pulses intact, pulses symmetrical, No edema, normal temperature, normal color Peripheral Pulses: within normal limits - Abdominal General gastrointestinal: soft, non-tender, non-distended, normal bowel sounds - Integumentary Integumentary: Present: warm, dry - Psychiatric Psychiatric: cooperative, agitated - Neurologic Neurologic: CNII-XII intact - Allied Health Allied health notes reviewed: nursing, RT, social work HEART Score - HEART Score EKG: Non-specific Age: 45-65 Risk factors: 1-2 risk factors Troponin: Troponin T 0.400 ng/mL (0.00-0.029) H* D 05/16/21 18:40 Troponin: 1-3x normal limit - Critical Actions Critical Actions: 4-6 pts:12-16.6% risk of adverse cardiac event. Should be admitted Results - Labs CBC & Chem 7: 06/05/21 04:24 06/05/21 04:24 Labs: Laboratory Last Values WBC 11.1 K/mm3 (4.5-11.0) H 06/05/21 04:24 RBC 3.23 M/mm3 (3.65-5.03) L 06/05/21 04:24 Hgb 9.9 gm/dl (11.8-15.2) L 06/05/21 04:24 Hct 29.4 % (35.5-45.6) L 06/05/21 04:24 MCV 91 fl (84-94) 06/05/21 04:24 MCH 31 pg (28-32) 06/05/21 04:24 MCHC 34 % (32-34) 06/05/21 04:24 RDW 16.3 % (13.2-15.2) H 06/05/21 04:24 Plt Count 501 K/mm3 (140-440) H 06/05/21 04:24 Lymph % (Auto) Rfid Systems Engineer 05/16/21 10:21 Dickenson % (Auto) Rfid Systems Engineer 05/16/21 10:21 Eos % (Auto) Rfid Systems Engineer 05/16/21 10:21 Baso % (Auto) Rfid Systems Engineer 05/16/21 10:21 Lymph # (Auto) Rfid Systems Engineer 05/16/21 10:21 Dickenson # (Auto) Rfid Systems Engineer 05/16/21 10:21 Eos # (Auto) Rfid Systems Engineer 05/16/21 10:21 Baso # (Auto) Rfid Systems Engineer 05/16/21 10:21 Add Manual Diff Complete 05/28/21 04:04 Total Counted 100 05/28/21 04:04 Seg Neutrophils % Rfid Systems Engineer 05/16/21 10:21 Seg Neuts % (Manual) 93.0 % (40.0-70.0) H 05/28/21 04:04 Band Neutrophils % 1.0 % 05/28/21 04:04 Lymphocytes % (Manual) 2.0 % (13.4-35.0) L 05/28/21 04:04 Reactive Lymphs % (Man) 0 % 05/28/21 04:04 Monocytes % (Manual) 4.0 % (0.0-7.3) 05/28/21 04:04 Eosinophils % (Manual) 0 % (0.0-4.3) 05/28/21 04:04 Basophils % (Manual) 0 % (0.0-1.8) 05/28/21 04:04 Metamyelocytes % 0 % 05/28/21 04:04 Myelocytes % 0 % 05/28/21 04:04 Promyelocytes % 0 % 05/28/21 04:04 Blast Cells % 0 % 05/28/21 04:04 Nucleated RBC % Not Reportable 05/28/21 04:04 Seg Neutrophils # Rfid Systems Engineer 05/16/21 10:21 Seg Neutrophils # Man 13.1 K/mm3 (1.8-7.7) H 05/28/21 04:04 Band Neutrophils # 0.1 K/mm3 05/28/21 04:04 Lymphocytes # (Manual) 0.3 K/mm3 (1.2-5.4) L 05/28/21 04:04 Abs React Lymphs (Man) 0.0 K/mm3 05/28/21 04:04 Monocytes # (Manual) 0.6 K/mm3 (0.0-0.8) 05/28/21 04:04 Eosinophils # (Manual) 0.0 K/mm3 (0.0-0.4) 05/28/21 04:04 Basophils # (Manual) 0.0 K/mm3 (0.0-0.1) 05/28/21 04:04 Metamyelocytes # 0.0 K/mm3 05/28/21 04:04 Myelocytes # 0.0 K/mm3 05/28/21 04:04 Promyelocytes # 0.0 K/mm3 05/28/21 04:04 Blast Cells # 0.0 K/mm3 05/28/21 04:04 WBC Morphology Not Reportable 05/28/21 04:04 Hypersegmented Neuts Not Reportable 05/28/21 04:04 Hyposegmented Neuts Not Reportable 05/28/21 04:04 Hypogranular Neuts Not Reportable 05/28/21 04:04 Smudge Cells Not Reportable 05/28/21 04:04 Toxic Granulation Not Reportable 05/28/21 04:04 Toxic Vacuolation Not Reportable 05/28/21 04:04 Dohle Bodies Not Reportable 05/28/21 04:04 Pelger-Huet Anomaly Not Reportable 05/28/21 04:04 Jesse Rods Not Reportable 05/28/21 04:04 Platelet Estimate Consistent w auto 05/28/21 04:04 Clumped Platelets Not Reportable 05/28/21 04:04 Plt Clumps, EDTA Not Reportable 05/28/21 04:04 Large Platelets Not Reportable 05/28/21 04:04 Giant Platelets Not Reportable 05/28/21 04:04 Platelet Satelliting Not Reportable 05/28/21 04:04 Plt Morphology Comment Not Reportable 05/28/21 04:04 RBC Morphology Not Reportable 05/28/21 04:04 Dimorphic RBCs Not Reportable 05/28/21 04:04 Polychromasia Not Reportable 05/28/21 04:04 Hypochromasia Not Reportable 05/28/21 04:04 Poikilocytosis Not Reportable 05/28/21 04:04 Anisocytosis 1+ 05/28/21 04:04 Microcytosis Not Reportable 05/28/21 04:04 Macrocytosis Not Reportable 05/28/21 04:04 Spherocytes Not Reportable 05/28/21 04:04 Pappenheimer Bodies Not Reportable 05/28/21 04:04 Sickle Cells Not Reportable 05/28/21 04:04 Target Cells Not Reportable 05/28/21 04:04 Tear Drop Cells Not Reportable 05/28/21 04:04 Ovalocytes Not Reportable 05/28/21 04:04 Helmet Cells Not Reportable 05/28/21 04:04 [place] Bodies Not Reportable 05/28/21 04:04 [place] Rings Not Reportable 05/28/21 04:04 Alec Cells Not Reportable 05/28/21 04:04 Bite Cells Not Reportable 05/28/21 04:04 Crenated Cell Not Reportable 05/28/21 04:04 Elliptocytes Not Reportable 05/28/21 04:04 Acanthocytes (Spur) Not Reportable 05/28/21 04:04 Rouleaux Not Reportable 05/28/21 04:04 Hemoglobin C Crystals Not Reportable 05/28/21 04:04 Schistocytes Not Reportable 05/28/21 04:04 Malaria parasites Not Reportable 05/28/21 04:04 Tomi Bodies Not Reportable 05/28/21 04:04 Haptoglobin 254 mg/dL (43-212) H 05/23/21 18:54 Hem Pathologist Commnt No 05/28/21 04:04 PT 14.9 Sec. (12.2-14.9) 05/25/21 04:25 INR 1.05 (0.87-1.13) 05/25/21 04:25 APTT 72.5 Sec. (24.2-36.6) H* 05/19/21 19:36 D-Dimer 2730.61 ng/mlDDU (0-234) H 05/12/21 07:19 Heparin Anti-Xa Level 0.47 U.I./ml (0.3-0.7) 05/19/21 05:23 ABG pH 7.443 pH Units (7.350-7.450) 05/27/21 09:20 ABG pCO2 38.8 mm Hg 05/27/21 09:20 ABG pO2 115.2 mm Hg (80.0-90.0) H 05/27/21 09:20 ABG HCO3 25.9 mmol/L (20.0-26.0) 05/27/21 09:20 ABG O2 Saturation 98.3 % (95.0-99.0) 05/27/21 09:20 ABG O2 Content 12.5 (0.0-44) 05/27/21 09:20 ABG Base Excess 1.7 mmol/L (-2.0-3.0) 05/27/21 09:20 ABG Hemoglobin 9.2 gm/dl (14.0-18.0) L 05/27/21 09:20 ABG Carboxyhemoglobin 2.2 % (0.0-5.0) 05/27/21 09:20 ABG Methemoglobin 0.7 % (0.0-1.5) 05/27/21 09:20 Oxyhemoglobin 95.4 % (95.0-99.0) 05/27/21 09:20 FiO2 30 % 05/27/21 09:20 Sodium 139 mmol/L (137-145) 06/05/21 04:24 Potassium 4.0 mmol/L (3.6-5.0) 06/05/21 04:24 Chloride 101.6 mmol/L (98-107) 06/05/21 04:24 Carbon Dioxide 25 mmol/L (22-30) 06/05/21 04:24 Anion Gap 16 mmol/L 06/05/21 04:24 BUN 41 mg/dL (9-20) H 06/05/21 04:24 Creatinine 1.1 mg/dL (0.8-1.3) 06/05/21 04:24 Estimated GFR > 60 ml/min 06/05/21 04:24 BUN/Creatinine Ratio 37 % 06/05/21 04:24 Glucose 120 mg/dL (75-100) H 06/05/21 04:24 POC Glucose 136 mg/dL (70-105) H 06/06/21 16:55 Lactic Acid 0.90 mmol/L (0.7-2.0) 05/20/21 09:17 Calcium 8.5 mg/dL (8.4-10.2) 06/05/21 04:24 Phosphorus 3.70 mg/dL (2.5-4.5) 06/01/21 04:56 Magnesium 2.10 mg/dL (1.7-2.3) 06/01/21 04:56 Iron 10 ug/dL (49-181) L 05/23/21 Unknown TIBC 151 mcg/dL (250-450) L 05/23/21 Unknown Ferritin 640.2 ng/mL (30.0-300.0) H 05/12/21 07:19 Total Bilirubin 0.50 mg/dL (0.1-1.2) 05/24/21 04:11 AST 152 units/L (5-40) H 05/24/21 04:11 ALT 125 units/L (7-56) H 05/24/21 04:11 Alkaline Phosphatase 72 units/L (35-129) 05/24/21 04:11 Lactate Dehydrogenase 311 units/L (91-180) H 05/23/21 Unknown Total Creatine Kinase 406 units/L (55-170) H 05/04/21 08:42 Troponin T 0.400 ng/mL (0.00-0.029) H* D 05/16/21 18:40 C-Reactive Protein 13.20 mg/dL (0.00-1.30) H 05/28/21 04:04 Total Protein 6.6 g/dL (6.3-8.2) 05/24/21 04:11 Albumin 2.5 g/dL (3.9-5) L 05/24/21 04:11 Albumin/Globulin Ratio 0.6 % 05/24/21 04:11 Triglycerides 144 mg/dL (2-149) 05/10/21 04:57 Cholesterol 140 mg/dL (50-199) 05/04/21 07:25 LDL Cholesterol Direct 89 mg/dL (50-130) 05/04/21 07:25 HDL Cholesterol 48 mg/dL (40-59) 05/04/21 07:25 Cholesterol/HDL Ratio 2.91 % 05/04/21 07:25 Procalcitonin 0.63 ng/mL (<0.15) 05/09/21 15:53 Urine Color Yellow (Yellow) 05/26/21 09:50 Urine Turbidity Turbid (Clear) 05/26/21 09:50 Urine pH 5.0 (5.0-7.0) 05/26/21 09:50 Ur Specific Goldonna 1.014 (1.003-1.030) 05/26/21 09:50 Urine Protein 30 mg/dl mg/dL (Negative) 05/26/21 09:50 Urine Glucose (UA) Neg mg/dL (Negative) 05/26/21 09:50 Urine Ketones Neg mg/dL (Negative) 05/26/21 09:50 Urine Blood Sm (Negative) 05/26/21 09:50 Urine Nitrite Neg (Negative) 05/26/21 09:50 Urine Bilirubin Neg (Negative) 05/26/21 09:50 Urine Urobilinogen < 2.0 mg/dL (<2.0) 05/26/21 09:50 Ur Leukocyte Esterase Tr (Negative) 05/26/21 09:50 Urine WBC (Auto) 38.0 /HPF (0.0-6.0) H 05/26/21 09:50 Urine RBC (Auto) 5.0 /HPF (0.0-6.0) 05/26/21 09:50 U Epithel Cells (Auto) 1.0 /HPF (0-13.0) 05/23/21 16:30 Urine Bacteria (Auto) 1+ /HPF (Negative) 05/23/21 16:30 Uric Acid Crystals Few 05/09/21 00:40 Triple Phos Crystals 2+ 05/09/21 13:22 Amorphous Crystals 3+ 05/26/21 09:50 Granular Casts 20 /LPF 05/26/21 09:50 Urine Mucus Few /HPF 05/23/21 16:30 Urine Creatinine 100.1 mg/dL (0.1-20.0) H 05/23/21 16:30 Protein/Creatinin Ratio 0.42 05/10/21 11:03 Urine Sodium 25 mmol/L 05/23/21 16:30 Fraction Sodium Excret 0.3 05/23/21 16:30 Urine Total Protein 42 mg/dL (5-11.8) H 05/10/21 11:03 Vancomycin Trough 15.4 ug/mL (5.0-20.0) 05/29/21 14:15 Urine Opiates Screen Negative 05/04/21 Unknown Urine Methadone Screen Negative 05/04/21 Unknown Ur Barbiturates Screen Negative 05/04/21 Unknown Ur Phencyclidine Scrn Negative 05/04/21 Unknown Ur Amphetamines Screen Positive 05/04/21 Unknown U Benzodiazepines Scrn Negative 05/04/21 Unknown Urine Cocaine Screen Negative 05/04/21 Unknown U Marijuana (THC) Screen Negative 05/04/21 Unknown Drugs of Abuse Note Disclamer 05/04/21 Unknown Immunofix Electrophor see below 05/05/21 03:40 AUDRA Screen Negative (Negative) 05/05/21 03:40 Proteinase 3 (PR3) Ab <1.0 AI (<1.0) 05/05/21 03:40 Myeloperoxidase Ab <1.0 AI (<1.0) 05/05/21 03:40 Complement C3 72 mg/dL (82-185) L 05/05/21 03:40 Complement C4 17 mg/dL (15-53) 05/05/21 03:40 Coronavirus (PCR) Negative (Negative) 06/05/21 09:47 Hepatitis A IgM Ab Non-reactive (NonReactive) 05/05/21 03:40 Hep Bs Antigen Non-reactive (Negative) 05/05/21 03:40 Hep B Core IgM Ab Non-reactive (NonReactive) 05/05/21 03:40 Hepatitis C Antibody Reactive (NonReactive) A 05/05/21 03:40 Blood Type O POSITIVE 05/23/21 07:12 Antibody Screen Negative 05/23/21 07:12 Crossmatch See Detail 05/23/21 07:12 Merino/IV: Voiding Method Indwelling Catheter Active Medications - Current Medications Current Medications: Generic Name Dose Route Start Last Admin Trade Name Freq PRN Reason Stop Dose Admin Acetaminophen 650 mg 05/04/21 12:34 06/03/21 02:06 Acetaminophen 325 Mg Tab PO 650 mg Q4H PRN Administration Pain MILD(1-3)/Fever >100.5/MARIA Acetaminophen 650 mg 05/07/21 16:00 05/11/21 16:25 Acetaminophen 650 Mg Rect Supp IA 650 mg Q4H PRN Administration Pain, Mild (1-3) Atorvastatin Calcium 40 mg 05/09/21 22:00 06/05/21 22:23 Atorvastatin 40 Mg Tab FEEDTUBE 40 mg QHS RISHI Administration Dextrose 0 ml 05/09/21 10:49 05/14/21 06:55 Dextrose 10% *Hypoglycemia IV 250 ml PRN PRN Administration Hypoglycemia Fentanyl 50 mcg 05/23/21 15:00 Fentanyl 100 Mcg/2 Ml Inj IV Q10MIN PRN ANALGESIA Fentanyl 50 mcg 06/06/21 15:15 Fentanyl 100 Mcg/2 Ml Inj IV Q2H PRN Pain, Moderate (4-6) Haloperidol Lactate 5 mg 05/09/21 18:32 05/18/21 19:52 Haloperidol Lactate 5 Mg/1 Ml Inj IV 5 mg Q6H PRN Administration Agitation Heparin Sodium (Porcine) 5,000 unit 05/27/21 22:00 06/06/21 09:58 Heparin 5,000 Unit/1 Ml Vial SUB-Q 5,000 unit Q12HR RISHI Administration Hydralazine HCl 50 mg 05/04/21 14:00 06/06/21 15:44 Hydralazine 25 Mg Tab PO 50 mg Q8HR RISHI Administration Insulin Human Lispro 0 unit 05/10/21 09:40 05/12/21 16:49 Insulin Lispro 100 Unit/Ml SUB-Q 2 unit Q6HR PRN Administration Hyperglycemia Protocol Labetalol HCl 10 mg 05/15/21 10:24 05/25/21 08:15 Labetalol 20 Mg/4 Ml Inj IV 10 mg Q4H PRN Administration sbp> 160. Lansoprazole 30 mg 05/26/21 10:00 06/06/21 09:58 Lansoprazole 30 Mg Solutab FEEDTUBE 30 mg BID RISHI Administration Lorazepam 2 mg 06/06/21 15:15 Lorazepam 2 Mg/Ml Vial IV Q4H PRN Agitation Metoprolol Tartrate 50 mg 05/26/21 08:00 06/06/21 15:43 Metoprolol Tartrate 25 Mg Tab FEEDTUBE 50 mg TID RISHI Administration Ondansetron HCl 4 mg 05/04/21 12:34 05/04/21 21:51 Ondansetron 4 Mg/2 Ml Inj IV 4 mg Q8H PRN Administration Nausea And Vomiting Oxycodone HCl 5 mg 05/30/21 11:00 05/30/21 14:55 Oxycodone 5 Mg Tab PO 5 mg Q6H PRN Administration Pain, Moderate (4-6) Polyethylene Glycol 17 gm 05/26/21 22:00 06/05/21 22:23 Polyethylene Glycol 3350 17 Gm Powder PO 17 gm QHS RISHI Administration Senna/Docusate Sodium 1 tab 05/05/21 22:00 06/06/21 09:58 Sennosides/Docusate Sodium 8.6/50 Mg Tab FEEDTUBE 1 tab BID RISHI Administration Sodium Chloride 10 ml 05/04/21 12:34 05/06/21 13:59 Sodium Chloride 0.9% 10 Ml Flush Syringe IV 10 ml PRN PRN Administration LINE FLUSH Sodium Chloride 10 ml 05/09/21 09:46 Sodium Chloride 0.9% 50 Ml Ivpb IV PRN PRN FLUSH Nutrition/Malnutrition Assess - Dietary Evaluation Nutrition/Malnutrition Findings: Nutrition Notes Start: 05/05/21 16:15 Freq: Status: Active Protocol: Document 06/03/21 14:39 ROSAURA (Rec: 06/03/21 14:42 ROSAURA [email or web address]) Nutrition Notes Initial or Follow up Reassessment Current Diagnosis Acute Kidney Injury, Hypertension,Heart Failure, Respiratory Failure Other Pertinent Diagnosis Severe COVID-19 pneu, metabolic encephalopathy, polysubstance dependence Current Diet TF - Nepro at 45ml/hr Labs/Tests BUN 44 Pertinent Medications reviewed Height 5 ft 7 in Weight 81.647 kg [place] Body Weight (kg) 67.27 BMI 28.1 Weight Status Overweight Subjective/Other Information Pt remains on vent support. Still awaiting family consent for trach and PEG placement. Spoke with RN via phone (14:18 ); pt continues to tolerate TF at goal rate Percent of energy/protein needs met: 100% energy 89% pro Burn Absent Trauma Absent #1 Nutrition Diagnosis Inadequate oral intake Diagnosis Progress(for reassessment Continues documentation) Is patient on ventilator? Yes Is Patient Ambulatory and/or Out of Bed No REE-(Rhame-St. Jeor-confined to bed) 7066.666 Calculation Used for Recommendations [facility] Additional Notes Pro needs 1.2-2g/k-163g/ day Fluid needs 1ml/kcal Nutrition Intervention Nutrition Support: Continue Nepro at 45ml/hr with 200ml water flush q4h. Kcal 1,944 Protein (gm) 87 Carbohydrates (gm) 174 Fat (gm) 104 Fluid (mL) 785 Fiber (gm) 14 Goal #1 TF tolerance Goal #2 TF to meet at least 75% energy and pro needs Follow-Up By: 06/10/21 Additional Comments F/U: stable TF, vent status, trach/PEG placement, wt
[2021-06-06] MEDS: fentaNYL 100 MCG/2 ML INJ IV PRN ×2 (18:02→23:03)
[2021-06-06] MEDS: POLYETHYLENE GLYCOL 3350 17 GM POWDER PO SCH (22:15)
[2021-06-07] MEDS: ACETAMINOPHEN 325 MG TAB PO PRN ×2 (01:15→06:13)
[2021-06-07] MEDS: fentaNYL 100 MCG/2 ML INJ IV PRN ×2 (05:34→07:33)
[2021-06-07] MEDS: hydrALAZINE 25 MG TAB PO SCH ×2 (06:11→13:51)
[2021-06-07] MEDS: METOPROLOL TARTRATE 25 MG TAB FEEDTUBE SCH ×2 (08:00→13:52)
[2021-06-07 08:43] LABS: Hematocrit 33.3 % (35.5-45.6); Hemoglobin 10.6 gm/dl (11.8-15.2); Mean Corpuscular HGB Conc 32 % (32-34); Mean Corpuscular Volume 92 fl (84-94); Platelet Count 470 K/mm3 (140-440); Red Blood Count 3.64 M/mm3 (3.65-5.03); Red Cell Distribution Width 16.8 % (13.2-15.2)
[2021-06-07 08:58] LABS: BUN/Creatinine Ratio 37; Blood Urea Nitrogen 41 mg/dL (9-20); Calcium 8.6 mg/dL (8.4-10.2); Hemolysis Index 1
[2021-06-07] MEDS: HALOPERIDOL LACTATE 5 MG/1 ML INJ IV PRN (09:32)
--- NOTE | 2021-06-07 09:41 | Progress Note ---
Assessment and Plan Acute hypoxic resp failure on MVS COVID positive NSTEMI Acute kidney injury Cardiomyopathy EF 35-40% History of hepatitis C Elevated D-dimer. Low probability for PE seen on VQ scan Tobacco abuse Polysubstance abusepatient with positive methamphetamines and has a history of cocaine use Anemia (brother to decide on next steps re: substituted judgment) - rest on full MVS - no new issues otherwise, continue care as below; - daily SAT and SBT assessment as tolerated - continue to wean supplemental oxygen for target O2 sat's > 90% acutely - VAP bundle addressed - continue lung protective strategies - continue bronchodilators with pulmonary hygiene per RT - wean per pulmonary driven protocols otherwise - avoid nephrotoxins, renally dose all medications - continue accuchecks with glycemic control per SSI (While critically ill target blood glucose of 140-180 mg/dL; avoid hypoglycemia) - sedation prn for target RASS 0 to -1 - continue to avoid benzodiazepine's, reduce the possibility of delirium - prn analgesia per CPOT score - Maintenance of sleep-wake cycle, avoid delirium - continue enteral nutritional support at goal rate as tolerated - G.I. & VTE prophylaxis with Pantoprazole and Heparin - PT/OT/ROM exercises - continue mobility protocols for pressure ulcer prophylaxis - Monitor hemodynamics closely - continue other care per attending / other consultants - discharge planning ongoing concurrently COVID SPECIFIC INTERVENTIONS - Appears to have incidental COVID infection- Remdesivir not administered secondary to renal failure - continue systemic steroids for severe COVID-19 infection empirically (Dexamethasone) - follow repeat COVID tests results - zinc and vitamin C supplementation - Monitor inflammatory markers per facility protocol - ferritin, Ddimer, CRP - therapeutic anticoagulation per system Protocol based on d-dimer and clinical considerations (on therapeutic heparin for NSTEMI) - Continue contact and airborne isolation .... Re-evaluate in am & prn CONDITION: CRITICAL PROGNOSIS: GUARDED CODE STATUS: FULL CODE The high probability of a clinically significant, sudden or life-threatening deterioration of the [respiratory, cardiovascular & neurologic] system(s) required my full and direct attention, intervention and personal management. The aggregate critical care time was [32] minutes without overlap. Time includes spent on; [x] Data Review and interpretation [x] Patient assessment and monitoring of vital signs [x] Documentation [x] Medication orders and management Subjective Date of service: 06/07/21 Principal diagnosis: AHRF; COVID-19 infection; NSTEMI; YE; HFrEF (35-40%); Polysubstance abuse Interval history: Patient is seen today for: Acute hypoxemic Resp failure; COVID-19 infection; NSTEMI; YE; HFrEF (35-40%); Polysubstance abuse; Anemia Seen and examined at bedside; 24hour events reviewed; nursing and respiratory care staff consulted; no adverse overnight events reported to me; resting in bed; remains on MVS; despite stopping fentanyl drip still with AMS and sever delirium; failed SBT; brother visited at length and tried to communicate with the patient Objective Vital Signs - 12hr 06/06/21 06/06/21 06/06/21 22:00 22:16 23:00 Temperature Pulse Rate 76 76 79 Pulse Rate [ From Monitor] Respiratory 21 26 H Rate Blood Pressure 123/86 123/86 130/91 O2 Sat by Pulse 97 93 Oximetry 06/06/21 06/06/21 06/07/21 23:15 23:52 00:00 Temperature 101.8 F H Pulse Rate 76 82 85 Pulse Rate [ 79 From Monitor] Respiratory 14 28 H Rate Blood Pressure 130/91 128/92 136/90 O2 Sat by Pulse 95 95 97 Oximetry 06/07/21 06/07/21 06/07/21 01:00 01:15 02:00 Temperature Pulse Rate 86 92 H Pulse Rate [ From Monitor] Respiratory 25 H 19 22 Rate Blood Pressure 129/87 138/90 O2 Sat by Pulse 92 Oximetry 06/07/21 06/07/21 06/07/21 03:00 03:15 03:50 Temperature 102 F H Pulse Rate 92 H 93 H Pulse Rate [ From Monitor] Respiratory 12 Rate Blood Pressure 143/97 143/97 O2 Sat by Pulse 97 98 Oximetry 06/07/21 06/07/21 06/07/21 04:00 05:00 06:00 Temperature Pulse Rate 94 H 94 H 93 H Pulse Rate [ 94 H From Monitor] Respiratory 19 13 22 Rate Blood Pressure 135/100 134/92 134/92 O2 Sat by Pulse 98 Oximetry 06/07/21 06/07/21 06/07/21 06:11 07:00 07:05 Temperature Pulse Rate 92 H 93 H 93 H Pulse Rate [ From Monitor] Respiratory 17 47 H Rate Blood Pressure 134/92 127/86 127/86 O2 Sat by Pulse 97 98 Oximetry 06/07/21 06/07/21 08:00 08:29 Temperature 101 F H Pulse Rate 93 H Pulse Rate [ 93 H From Monitor] Respiratory 31 H Rate Blood Pressure 129/82 O2 Sat by Pulse 97 Oximetry Constitutional: appears uncomfortable, other (middle aged male with mildly increased respiratory effort at rest) Eyes: non-icteric ENT: oropharynx moist, other (ETT 24 cm ELIZABET) Neck: supple, no lymphadenopathy, no JVD Effort: mildly labored Ascultation: Bilateral: diminished breath sounds, rhonchi Percussion: Bilateral: not dull Cardiovascular: regular rate and rhythm, other (S1,S2) Gastrointestinal: normoactive bowel sounds, soft, non-tender, non-distended Integumentary: normal Extremities: no cyanosis, no edema, pulses normal Neurologic: non-focal exam (grossly), pupils equal and round, unable to assess (sedated) Psychiatric: other (delirious) CBC and BMP: 06/07/21 08:04 06/07/21 08:04 ABG, PT/INR, D-dimer: ABG ABG pH 7.443 pH Units (7.350-7.450) 05/27/21 09:20 ABG pCO2 38.8 mm Hg 05/27/21 09:20 ABG pO2 115.2 mm Hg (80.0-90.0) H 05/27/21 09:20 ABG O2 Saturation 98.3 % (95.0-99.0) 05/27/21 09:20 PT/INR, D-dimer PT 14.9 Sec. (12.2-14.9) 05/25/21 04:25 INR 1.05 (0.87-1.13) 05/25/21 04:25 D-Dimer 2730.61 ng/mlDDU (0-234) H 05/12/21 07:19 Abnormal lab findings: Abnormal Labs 05/04/21 05/04/21 05/04/21 07:25 07:25 07:25 WBC 12.9 H RBC 3.04 L Hgb 9.5 L Hct 28.4 L MCV MCHC RDW 15.4 H Plt Count Lymph % (Auto) 11.4 L [place] % (Auto) 10.1 H Lymph # (Auto) [place] # (Auto) 1.3 H Seg Neutrophils % 78.0 H Seg Neuts % (Manual) Lymphocytes % (Manual) Monocytes % (Manual) Seg Neutrophils # 10.0 H Seg Neutrophils # Man Lymphocytes # (Manual) Monocytes # (Manual) Haptoglobin PT 15.1 H APTT D-Dimer Heparin Anti-Xa Level ABG pH ABG pO2 ABG HCO3 ABG O2 Saturation ABG Base Excess ABG Hemoglobin Oxyhemoglobin Sodium 135 L Potassium Chloride Carbon Dioxide BUN 65 H Creatinine 3.4 H Glucose 118 H POC Glucose Calcium Phosphorus Magnesium Iron TIBC Ferritin Total Bilirubin 1.50 H AST 519 H ALT 475 H Lactate Dehydrogenase Total Creatine Kinase Troponin T 1.300 H* C-Reactive Protein Albumin Urine WBC (Auto) Urine Creatinine Urine Total Protein Complement C3 Coronavirus (PCR) Hepatitis C Antibody Crossmatch 05/04/21 05/04/21 05/04/21 07:25 08:42 08:42 WBC RBC Hgb Hct MCV MCHC RDW Plt Count Lymph % (Auto) [place] % (Auto) Lymph # (Auto) [place] # (Auto) Seg Neutrophils % Seg Neuts % (Manual) Lymphocytes % (Manual) Monocytes % (Manual) Seg Neutrophils # Seg Neutrophils # Man Lymphocytes # (Manual) Monocytes # (Manual) Haptoglobin PT APTT D-Dimer 579.49 H Heparin Anti-Xa Level ABG pH ABG pO2 ABG HCO3 ABG O2 Saturation ABG Base Excess ABG Hemoglobin Oxyhemoglobin Sodium Potassium Chloride Carbon Dioxide BUN Creatinine Glucose POC Glucose Calcium Phosphorus Magnesium Iron TIBC Ferritin Total Bilirubin AST ALT Lactate Dehydrogenase Total Creatine Kinase 406 H Troponin T 1.230 H* C-Reactive Protein Albumin Urine WBC (Auto) Urine Creatinine Urine Total Protein Complement C3 Coronavirus (PCR) Hepatitis C Antibody Crossmatch 05/04/21 05/04/21 05/04/21 10:13 13:34 18:14 WBC RBC Hgb 8.8 L Hct 26.6 L MCV MCHC RDW Plt Count Lymph % (Auto) [place] % (Auto) Lymph # (Auto) [place] # (Auto) Seg Neutrophils % Seg Neuts % (Manual) Lymphocytes % (Manual) Monocytes % (Manual) Seg Neutrophils # Seg Neutrophils # Man Lymphocytes # (Manual) Monocytes # (Manual) Haptoglobin PT APTT D-Dimer Heparin Anti-Xa Level < 0.10 L ABG pH ABG pO2 ABG HCO3 ABG O2 Saturation ABG Base Excess ABG Hemoglobin Oxyhemoglobin Sodium Potassium Chloride Carbon Dioxide BUN Creatinine Glucose POC Glucose Calcium Phosphorus Magnesium Iron TIBC Ferritin Total Bilirubin AST ALT Lactate Dehydrogenase Total Creatine Kinase Troponin T 1.400 H* C-Reactive Protein Albumin Urine WBC (Auto) Urine Creatinine Urine Total Protein Complement C3 Coronavirus (PCR) Hepatitis C Antibody Crossmatch 05/05/21 05/05/21 05/05/21 03:40 03:40 03:40 WBC RBC Hgb Hct MCV MCHC RDW Plt Count Lymph % (Auto) [place] % (Auto) Lymph # (Auto) [place] # (Auto) Seg Neutrophils % Seg Neuts % (Manual) Lymphocytes % (Manual) Monocytes % (Manual) Seg Neutrophils # Seg Neutrophils # Man Lymphocytes # (Manual) Monocytes # (Manual) Haptoglobin PT APTT D-Dimer Heparin Anti-Xa Level 0.11 L ABG pH ABG pO2 ABG HCO3 ABG O2 Saturation ABG Base Excess ABG Hemoglobin Oxyhemoglobin Sodium Potassium 3.3 L Chloride Carbon Dioxide BUN 59 H Creatinine 2.6 H Glucose 139 H POC Glucose Calcium Phosphorus Magnesium Iron TIBC Ferritin Total Bilirubin AST ALT Lactate Dehydrogenase Total Creatine Kinase Troponin T C-Reactive Protein Albumin Urine WBC (Auto) Urine Creatinine Urine Total Protein Complement C3 Coronavirus (PCR) Hepatitis C Antibody Reactive A Crossmatch 05/05/21 05/05/21 05/05/21 03:40 08:30 09:57 WBC RBC Hgb Hct MCV MCHC RDW Plt Count Lymph % (Auto) [place] % (Auto) Lymph # (Auto) [place] # (Auto) Seg Neutrophils % Seg Neuts % (Manual) Lymphocytes % (Manual) Monocytes % (Manual) Seg Neutrophils # Seg Neutrophils # Man Lymphocytes # (Manual) Monocytes # (Manual) Haptoglobin PT APTT D-Dimer Heparin Anti-Xa Level ABG pH ABG pO2 ABG HCO3 ABG O2 Saturation ABG Base Excess ABG Hemoglobin Oxyhemoglobin Sodium Potassium Chloride Carbon Dioxide BUN Creatinine Glucose POC Glucose Calcium Phosphorus Magnesium Iron TIBC Ferritin Total Bilirubin AST ALT Lactate Dehydrogenase Total Creatine Kinase Troponin T C-Reactive Protein Albumin Urine WBC (Auto) Urine Creatinine 100.8 H Urine Total Protein Complement C3 72 L Coronavirus (PCR) Positive A Hepatitis C Antibody Crossmatch 05/05/21 05/05/21 05/05/21 11:28 17:00 19:51 WBC RBC Hgb Hct MCV MCHC RDW Plt Count Lymph % (Auto) [place] % (Auto) Lymph # (Auto) [place] # (Auto) Seg Neutrophils % Seg Neuts % (Manual) Lymphocytes % (Manual) Monocytes % (Manual) Seg Neutrophils # Seg Neutrophils # Man Lymphocytes # (Manual) Monocytes # (Manual) Haptoglobin PT APTT D-Dimer Heparin Anti-Xa Level 0.10 L 0.22 L ABG pH 7.304 L ABG pO2 140.8 H ABG HCO3 ABG O2 Saturation ABG Base Excess -2.1 L ABG Hemoglobin 10.2 L Oxyhemoglobin Sodium Potassium Chloride Carbon Dioxide BUN Creatinine Glucose POC Glucose Calcium Phosphorus Magnesium Iron TIBC Ferritin Total Bilirubin AST ALT Lactate Dehydrogenase Total Creatine Kinase Troponin T C-Reactive Protein Albumin Urine WBC (Auto) Urine Creatinine Urine Total Protein Complement C3 Coronavirus (PCR) Hepatitis C Antibody Crossmatch 05/06/21 05/06/21 05/06/21 03:47 06:15 17:53 WBC RBC Hgb 9.0 L Hct 27.8 L MCV MCHC RDW Plt Count Lymph % (Auto) [place] % (Auto) Lymph # (Auto) [place] # (Auto) Seg Neutrophils % Seg Neuts % (Manual) Lymphocytes % (Manual) Monocytes % (Manual) Seg Neutrophils # Seg Neutrophils # Man Lymphocytes # (Manual) Monocytes # (Manual) Haptoglobin PT APTT D-Dimer Heparin Anti-Xa Level 0.10 L ABG pH ABG pO2 143.5 H ABG HCO3 ABG O2 Saturation ABG Base Excess -2.4 L ABG Hemoglobin 6.9 L Oxyhemoglobin Sodium Potassium Chloride Carbon Dioxide BUN Creatinine Glucose POC Glucose Calcium Phosphorus Magnesium Iron TIBC Ferritin Total Bilirubin AST ALT Lactate Dehydrogenase Total Creatine Kinase Troponin T C-Reactive Protein Albumin Urine WBC (Auto) Urine Creatinine Urine Total Protein Complement C3 Coronavirus (PCR) Hepatitis C Antibody Crossmatch 05/07/21 05/07/21 05/07/21 00:07 03:22 03:45 WBC RBC Hgb Hct MCV MCHC RDW Plt Count Lymph % (Auto) [place] % (Auto) Lymph # (Auto) [place] # (Auto) Seg Neutrophils % Seg Neuts % (Manual) Lymphocytes % (Manual) Monocytes % (Manual) Seg Neutrophils # Seg Neutrophils # Man Lymphocytes # (Manual) Monocytes # (Manual) Haptoglobin PT APTT D-Dimer Heparin Anti-Xa Level < 0.10 L ABG pH ABG pO2 104.3 H ABG HCO3 ABG O2 Saturation ABG Base Excess -2.6 L ABG Hemoglobin 9.1 L Oxyhemoglobin Sodium Potassium Chloride 107.1 H Carbon Dioxide 20 L BUN 56 H Creatinine 2.9 H Glucose POC Glucose Calcium Phosphorus Magnesium Iron TIBC Ferritin Total Bilirubin AST ALT Lactate Dehydrogenase Total Creatine Kinase Troponin T C-Reactive Protein Albumin Urine WBC (Auto) Urine Creatinine Urine Total Protein Complement C3 Coronavirus (PCR) Hepatitis C Antibody Crossmatch 05/07/21 05/07/21 05/07/21 07:44 16:28 22:41 WBC RBC Hgb Hct MCV MCHC RDW Plt Count Lymph % (Auto) [place] % (Auto) Lymph # (Auto) [place] # (Auto) Seg Neutrophils % Seg Neuts % (Manual) Lymphocytes % (Manual) Monocytes % (Manual) Seg Neutrophils # Seg Neutrophils # Man Lymphocytes # (Manual) Monocytes # (Manual) Haptoglobin PT APTT D-Dimer Heparin Anti-Xa Level < 0.10 L 0.10 L < 0.10 L ABG pH ABG pO2 ABG HCO3 ABG O2 Saturation ABG Base Excess ABG Hemoglobin Oxyhemoglobin Sodium Potassium Chloride Carbon Dioxide BUN Creatinine Glucose POC Glucose Calcium Phosphorus Magnesium Iron TIBC Ferritin Total Bilirubin AST ALT Lactate Dehydrogenase Total Creatine Kinase Troponin T C-Reactive Protein Albumin Urine WBC (Auto) Urine Creatinine Urine Total Protein Complement C3 Coronavirus (PCR) Hepatitis C Antibody Crossmatch 05/08/21 05/08/21 05/08/21 03:25 04:34 07:30 WBC 12.4 H RBC 3.02 L Hgb 9.5 L Hct 29.2 L MCV 97 H MCHC RDW 16.7 H Plt Count Lymph % (Auto) 8.1 L [place] % (Auto) 11.0 H Lymph # (Auto) 1.0 L [place] # (Auto) 1.4 H Seg Neutrophils % 80.1 H Seg Neuts % (Manual) Lymphocytes % (Manual) Monocytes % (Manual) Seg Neutrophils # 9.9 H Seg Neutrophils # Man Lymphocytes # (Manual) Monocytes # (Manual) Haptoglobin PT APTT D-Dimer Heparin Anti-Xa Level ABG pH ABG pO2 139.0 H ABG HCO3 ABG O2 Saturation ABG Base Excess ABG Hemoglobin 8.8 L Oxyhemoglobin Sodium Potassium Chloride 110.5 H Carbon Dioxide BUN 59 H Creatinine 2.8 H Glucose 103 H POC Glucose Calcium Phosphorus Magnesium Iron TIBC Ferritin Total Bilirubin AST ALT 327 H Lactate Dehydrogenase Total Creatine Kinase Troponin T C-Reactive Protein Albumin 3.1 L Urine WBC (Auto) Urine Creatinine Urine Total Protein Complement C3 Coronavirus (PCR) Hepatitis C Antibody Crossmatch 05/09/21 05/09/21 05/09/21 04:10 04:20 04:20 WBC 11.7 H RBC 2.79 L Hgb 8.7 L Hct 26.5 L MCV 95 H MCHC RDW 16.2 H Plt Count Lymph % (Auto) [place] % (Auto) Lymph # (Auto) [place] # (Auto) Seg Neutrophils % Seg Neuts % (Manual) Lymphocytes % (Manual) Monocytes % (Manual) Seg Neutrophils # Seg Neutrophils # Man Lymphocytes # (Manual) Monocytes # (Manual) Haptoglobin PT APTT D-Dimer Heparin Anti-Xa Level ABG pH ABG pO2 161.6 H ABG HCO3 ABG O2 Saturation ABG Base Excess ABG Hemoglobin 8.3 L Oxyhemoglobin Sodium 151 H Potassium Chloride 114.5 H Carbon Dioxide 21 L BUN 57 H Creatinine 2.4 H Glucose POC Glucose Calcium Phosphorus Magnesium Iron TIBC Ferritin Total Bilirubin AST ALT 210 H Lactate Dehydrogenase Total Creatine Kinase Troponin T C-Reactive Protein Albumin 2.9 L Urine WBC (Auto) Urine Creatinine Urine Total Protein Complement C3 Coronavirus (PCR) Hepatitis C Antibody Crossmatch 05/09/21 05/09/21 05/09/21 09:48 09:48 13:22 WBC 11.6 H RBC 3.00 L Hgb 9.0 L Hct 28.4 L MCV MCHC RDW 15.9 H Plt Count Lymph % (Auto) 5.9 L [place] % (Auto) 8.9 H Lymph # (Auto) 0.7 L [place] # (Auto) 1.0 H Seg Neutrophils % 84.3 H Seg Neuts % (Manual) Lymphocytes % (Manual) Monocytes % (Manual) Seg Neutrophils # 9.8 H Seg Neutrophils # Man Lymphocytes # (Manual) Monocytes # (Manual) Haptoglobin PT APTT D-Dimer Heparin Anti-Xa Level ABG pH ABG pO2 ABG HCO3 ABG O2 Saturation ABG Base Excess ABG Hemoglobin Oxyhemoglobin Sodium Potassium Chloride Carbon Dioxide BUN Creatinine Glucose POC Glucose Calcium Phosphorus Magnesium Iron TIBC Ferritin Total Bilirubin AST ALT Lactate Dehydrogenase Total Creatine Kinase Troponin T C-Reactive Protein 8.70 H Albumin Urine WBC (Auto) 25.0 H Urine Creatinine Urine Total Protein Complement C3 Coronavirus (PCR) Hepatitis C Antibody Crossmatch 05/09/21 05/09/21 05/10/21 15:20 18:16 04:57 WBC RBC 2.87 L Hgb 8.8 L Hct 27.0 L MCV MCHC RDW 15.9 H Plt Count Lymph % (Auto) [place] % (Auto) Lymph # (Auto) [place] # (Auto) Seg Neutrophils % Seg Neuts % (Manual) Lymphocytes % (Manual) Monocytes % (Manual) Seg Neutrophils # Seg Neutrophils # Man Lymphocytes # (Manual) Monocytes # (Manual) Haptoglobin PT APTT D-Dimer Heparin Anti-Xa Level ABG pH ABG pO2 102.0 H ABG HCO3 ABG O2 Saturation ABG Base Excess -2.8 L ABG Hemoglobin 9.0 L Oxyhemoglobin Sodium Potassium Chloride Carbon Dioxide BUN Creatinine Glucose POC Glucose 130 H Calcium Phosphorus Magnesium Iron TIBC Ferritin Total Bilirubin AST ALT Lactate Dehydrogenase Total Creatine Kinase Troponin T C-Reactive Protein Albumin Urine WBC (Auto) Urine Creatinine Urine Total Protein Complement C3 Coronavirus (PCR) Hepatitis C Antibody Crossmatch 05/10/21 05/10/21 05/10/21 04:57 04:57 04:57 WBC RBC Hgb Hct MCV MCHC RDW Plt Count Lymph % (Auto) [place] % (Auto) Lymph # (Auto) [place] # (Auto) Seg Neutrophils % Seg Neuts % (Manual) Lymphocytes % (Manual) Monocytes % (Manual) Seg Neutrophils # Seg Neutrophils # Man Lymphocytes # (Manual) Monocytes # (Manual) Haptoglobin PT APTT D-Dimer 1546.78 H Heparin Anti-Xa Level ABG pH ABG pO2 ABG HCO3 ABG O2 Saturation ABG Base Excess ABG Hemoglobin Oxyhemoglobin Sodium 148 H Potassium Chloride 114.9 H Carbon Dioxide 21 L BUN 57 H Creatinine 2.3 H Glucose 157 H POC Glucose Calcium Phosphorus Magnesium Iron TIBC Ferritin 888.2 H Total Bilirubin AST ALT Lactate Dehydrogenase 289 H Total Creatine Kinase Troponin T C-Reactive Protein 6.80 H Albumin Urine WBC (Auto) Urine Creatinine Urine Total Protein Complement C3 Coronavirus (PCR) Hepatitis C Antibody Crossmatch 05/10/21 05/10/21 05/10/21 05:09 08:04 11:03 WBC RBC Hgb Hct MCV MCHC RDW Plt Count Lymph % (Auto) [place] % (Auto) Lymph # (Auto) [place] # (Auto) Seg Neutrophils % Seg Neuts % (Manual) Lymphocytes % (Manual) Monocytes % (Manual) Seg Neutrophils # Seg Neutrophils # Man Lymphocytes # (Manual) Monocytes # (Manual) Haptoglobin PT APTT D-Dimer Heparin Anti-Xa Level ABG pH 7.473 H ABG pO2 114.6 H ABG HCO3 ABG O2 Saturation ABG Base Excess ABG Hemoglobin 9.5 L Oxyhemoglobin Sodium Potassium Chloride Carbon Dioxide BUN Creatinine Glucose POC Glucose 152 H Calcium Phosphorus Magnesium Iron TIBC Ferritin Total Bilirubin AST ALT Lactate Dehydrogenase Total Creatine Kinase Troponin T C-Reactive Protein Albumin Urine WBC (Auto) Urine Creatinine 100.8 H Urine Total Protein 42 H Complement C3 Coronavirus (PCR) Hepatitis C Antibody Crossmatch 05/10/21 05/10/21 05/10/21 13:07 18:01 23:31 WBC RBC Hgb Hct MCV MCHC RDW Plt Count Lymph % (Auto) [place] % (Auto) Lymph # (Auto) [place] # (Auto) Seg Neutrophils % Seg Neuts % (Manual) Lymphocytes % (Manual) Monocytes % (Manual) Seg Neutrophils # Seg Neutrophils # Man Lymphocytes # (Manual) Monocytes # (Manual) Haptoglobin PT APTT D-Dimer Heparin Anti-Xa Level ABG pH ABG pO2 ABG HCO3 ABG O2 Saturation ABG Base Excess ABG Hemoglobin Oxyhemoglobin Sodium Potassium Chloride Carbon Dioxide BUN Creatinine Glucose POC Glucose 150 H 189 H 142 H Calcium Phosphorus Magnesium Iron TIBC Ferritin Total Bilirubin AST ALT Lactate Dehydrogenase Total Creatine Kinase Troponin T C-Reactive Protein Albumin Urine WBC (Auto) Urine Creatinine Urine Total Protein Complement C3 Coronavirus (PCR) Hepatitis C Antibody Crossmatch 05/10/21 05/11/21 05/11/21 Unknown 05:25 06:53 WBC RBC Hgb Hct MCV MCHC RDW Plt Count Lymph % (Auto) [place] % (Auto) Lymph # (Auto) [place] # (Auto) Seg Neutrophils % Seg Neuts % (Manual) Lymphocytes % (Manual) Monocytes % (Manual) Seg Neutrophils # Seg Neutrophils # Man Lymphocytes # (Manual) Monocytes # (Manual) Haptoglobin PT APTT D-Dimer Heparin Anti-Xa Level ABG pH ABG pO2 126.6 H ABG HCO3 ABG O2 Saturation ABG Base Excess ABG Hemoglobin 9.2 L Oxyhemoglobin Sodium 150 H Potassium Chloride 116.6 H Carbon Dioxide 21 L BUN 62 H Creatinine 2.5 H Glucose 142 H POC Glucose 163 H Calcium Phosphorus Magnesium Iron TIBC Ferritin Total Bilirubin AST ALT Lactate Dehydrogenase Total Creatine Kinase Troponin T C-Reactive Protein Albumin Urine WBC (Auto) Urine Creatinine Urine Total Protein Complement C3 Coronavirus (PCR) Hepatitis C Antibody Crossmatch 05/11/21 05/11/21 05/11/21 06:53 11:06 13:51 WBC RBC 3.07 L Hgb 9.3 L Hct 29.0 L MCV 95 H MCHC RDW 16.1 H Plt Count Lymph % (Auto) [place] % (Auto) Lymph # (Auto) [place] # (Auto) Seg Neutrophils % Seg Neuts % (Manual) Lymphocytes % (Manual) Monocytes % (Manual) Seg Neutrophils # Seg Neutrophils # Man Lymphocytes # (Manual) Monocytes # (Manual) Haptoglobin PT APTT D-Dimer Heparin Anti-Xa Level ABG pH ABG pO2 74.9 L ABG HCO3 ABG O2 Saturation ABG Base Excess -3.3 L ABG Hemoglobin 10.8 L Oxyhemoglobin Sodium Potassium Chloride Carbon Dioxide BUN Creatinine Glucose POC Glucose 145 H Calcium Phosphorus Magnesium Iron TIBC Ferritin Total Bilirubin AST ALT Lactate Dehydrogenase Total Creatine Kinase Troponin T C-Reactive Protein Albumin Urine WBC (Auto) Urine Creatinine Urine Total Protein Complement C3 Coronavirus (PCR) Hepatitis C Antibody Crossmatch 05/11/21 05/11/21 05/11/21 14:43 14:43 15:47 WBC RBC Hgb 9.2 L Hct 29.7 L MCV MCHC RDW Plt Count Lymph % (Auto) [place] % (Auto) Lymph # (Auto) [place] # (Auto) Seg Neutrophils % Seg Neuts % (Manual) Lymphocytes % (Manual) Monocytes % (Manual) Seg Neutrophils # Seg Neutrophils # Man Lymphocytes # (Manual) Monocytes # (Manual) Haptoglobin PT 15.6 H APTT D-Dimer Heparin Anti-Xa Level ABG pH ABG pO2 ABG HCO3 ABG O2 Saturation ABG Base Excess ABG Hemoglobin Oxyhemoglobin Sodium Potassium Chloride Carbon Dioxide BUN Creatinine Glucose POC Glucose 137 H Calcium Phosphorus Magnesium Iron TIBC Ferritin Total Bilirubin AST ALT Lactate Dehydrogenase Total Creatine Kinase Troponin T C-Reactive Protein Albumin Urine WBC (Auto) Urine Creatinine Urine Total Protein Complement C3 Coronavirus (PCR) Hepatitis C Antibody Crossmatch 05/12/21 05/12/21 05/12/21 00:04 05:07 07:19 WBC 11.9 H RBC 3.00 L Hgb 9.1 L Hct 28.9 L MCV 96 H MCHC RDW 16.7 H Plt Count Lymph % (Auto) 11.5 L [place] % (Auto) 8.2 H Lymph # (Auto) [place] # (Auto) 1.0 H Seg Neutrophils % 80.0 H Seg Neuts % (Manual) Lymphocytes % (Manual) Monocytes % (Manual) Seg Neutrophils # 9.6 H Seg Neutrophils # Man Lymphocytes # (Manual) Monocytes # (Manual) Haptoglobin PT APTT D-Dimer Heparin Anti-Xa Level ABG pH ABG pO2 ABG HCO3 ABG O2 Saturation ABG Base Excess ABG Hemoglobin Oxyhemoglobin Sodium Potassium Chloride Carbon Dioxide BUN Creatinine Glucose POC Glucose 121 H 117 H Calcium Phosphorus Magnesium Iron TIBC Ferritin Total Bilirubin AST ALT Lactate Dehydrogenase Total Creatine Kinase Troponin T C-Reactive Protein Albumin Urine WBC (Auto) Urine Creatinine Urine Total Protein Complement C3 Coronavirus (PCR) Hepatitis C Antibody Crossmatch 05/12/21 05/12/21 05/12/21 07:19 07:19 07:19 WBC RBC Hgb Hct MCV MCHC RDW Plt Count Lymph % (Auto) [place] % (Auto) Lymph # (Auto) [place] # (Auto) Seg Neutrophils % Seg Neuts % (Manual) Lymphocytes % (Manual) Monocytes % (Manual) Seg Neutrophils # Seg Neutrophils # Man Lymphocytes # (Manual) Monocytes # (Manual) Haptoglobin PT APTT D-Dimer 2730.61 H Heparin Anti-Xa Level ABG pH ABG pO2 ABG HCO3 ABG O2 Saturation ABG Base Excess ABG Hemoglobin Oxyhemoglobin Sodium 146 H Potassium 5.1 H Chloride 112.4 H Carbon Dioxide 21 L BUN 61 H Creatinine 2.2 H Glucose 136 H POC Glucose Calcium 8.1 L Phosphorus Magnesium Iron TIBC Ferritin 640.2 H Total Bilirubin AST ALT Lactate Dehydrogenase 314 H Total Creatine Kinase Troponin T C-Reactive Protein 1.60 H Albumin Urine WBC (Auto) Urine Creatinine Urine Total Protein Complement C3 Coronavirus (PCR) Hepatitis C Antibody Crossmatch 05/12/21 05/12/21 05/12/21 11:10 16:10 16:38 WBC RBC Hgb Hct MCV MCHC RDW Plt Count Lymph % (Auto) [place] % (Auto) Lymph # (Auto) [place] # (Auto) Seg Neutrophils % Seg Neuts % (Manual) Lymphocytes % (Manual) Monocytes % (Manual) Seg Neutrophils # Seg Neutrophils # Man Lymphocytes # (Manual) Monocytes # (Manual) Haptoglobin PT APTT D-Dimer Heparin Anti-Xa Level 0.20 L ABG pH ABG pO2 ABG HCO3 ABG O2 Saturation ABG Base Excess ABG Hemoglobin Oxyhemoglobin Sodium Potassium Chloride Carbon Dioxide BUN Creatinine Glucose POC Glucose 131 H 157 H Calcium Phosphorus Magnesium Iron TIBC Ferritin Total Bilirubin AST ALT Lactate Dehydrogenase Total Creatine Kinase Troponin T C-Reactive Protein Albumin Urine WBC (Auto) Urine Creatinine Urine Total Protein Complement C3 Coronavirus (PCR) Hepatitis C Antibody Crossmatch 05/12/21 05/13/21 05/13/21 23:30 00:12 04:20 WBC RBC Hgb Hct MCV MCHC RDW Plt Count Lymph % (Auto) [place] % (Auto) Lymph # (Auto) [place] # (Auto) Seg Neutrophils % Seg Neuts % (Manual) Lymphocytes % (Manual) Monocytes % (Manual) Seg Neutrophils # Seg Neutrophils # Man Lymphocytes # (Manual) Monocytes # (Manual) Haptoglobin PT APTT D-Dimer Heparin Anti-Xa Level 0.13 L ABG pH ABG pO2 ABG HCO3 ABG O2 Saturation ABG Base Excess ABG Hemoglobin Oxyhemoglobin Sodium Potassium Chloride 111.2 H Carbon Dioxide BUN 53 H Creatinine 1.9 H Glucose 121 H POC Glucose 115 H Calcium 8.3 L Phosphorus Magnesium Iron TIBC Ferritin Total Bilirubin AST ALT Lactate Dehydrogenase Total Creatine Kinase Troponin T C-Reactive Protein Albumin Urine WBC (Auto) Urine Creatinine Urine Total Protein Complement C3 Coronavirus (PCR) Hepatitis C Antibody Crossmatch 05/13/21 05/13/21 05/13/21 04:20 11:15 11:29 WBC 13.1 H RBC 2.86 L Hgb 8.5 L Hct 26.9 L MCV MCHC RDW 15.7 H Plt Count Lymph % (Auto) [place] % (Auto) Lymph # (Auto) [place] # (Auto) Seg Neutrophils % Seg Neuts % (Manual) Lymphocytes % (Manual) Monocytes % (Manual) Seg Neutrophils # Seg Neutrophils # Man Lymphocytes # (Manual) Monocytes # (Manual) Haptoglobin PT APTT D-Dimer Heparin Anti-Xa Level ABG pH 7.456 H ABG pO2 106.0 H ABG HCO3 ABG O2 Saturation ABG Base Excess ABG Hemoglobin 7.1 L Oxyhemoglobin Sodium Potassium Chloride Carbon Dioxide BUN Creatinine Glucose POC Glucose 121 H Calcium Phosphorus Magnesium Iron TIBC Ferritin Total Bilirubin AST ALT Lactate Dehydrogenase Total Creatine Kinase Troponin T C-Reactive Protein Albumin Urine WBC (Auto) Urine Creatinine Urine Total Protein Complement C3 Coronavirus (PCR) Hepatitis C Antibody Crossmatch 05/13/21 05/13/21 05/14/21 16:38 23:43 04:26 WBC 14.2 H RBC 3.11 L Hgb 9.4 L Hct 29.3 L MCV MCHC RDW 15.4 H Plt Count Lymph % (Auto) [place] % (Auto) Lymph # (Auto) [place] # (Auto) Seg Neutrophils % Seg Neuts % (Manual) Lymphocytes % (Manual) Monocytes % (Manual) Seg Neutrophils # Seg Neutrophils # Man Lymphocytes # (Manual) Monocytes # (Manual) Haptoglobin PT APTT D-Dimer Heparin Anti-Xa Level ABG pH ABG pO2 ABG HCO3 ABG O2 Saturation ABG Base Excess ABG Hemoglobin Oxyhemoglobin Sodium Potassium Chloride Carbon Dioxide BUN Creatinine Glucose POC Glucose 119 H 55 L Calcium Phosphorus Magnesium Iron TIBC Ferritin Total Bilirubin AST ALT Lactate Dehydrogenase Total Creatine Kinase Troponin T C-Reactive Protein Albumin Urine WBC (Auto) Urine Creatinine Urine Total Protein Complement C3 Coronavirus (PCR) Hepatitis C Antibody Crossmatch 05/14/21 05/14/21 05/14/21 04:26 05:26 06:51 WBC RBC Hgb Hct MCV MCHC RDW Plt Count Lymph % (Auto) [place] % (Auto) Lymph # (Auto) [place] # (Auto) Seg Neutrophils % Seg Neuts % (Manual) Lymphocytes % (Manual) Monocytes % (Manual) Seg Neutrophils # Seg Neutrophils # Man Lymphocytes # (Manual) Monocytes # (Manual) Haptoglobin PT APTT D-Dimer Heparin Anti-Xa Level ABG pH ABG pO2 ABG HCO3 ABG O2 Saturation ABG Base Excess ABG Hemoglobin Oxyhemoglobin Sodium Potassium 3.4 L Chloride 107.6 H Carbon Dioxide BUN 42 H Creatinine 1.9 H Glucose POC Glucose 51 L 62 L Calcium Phosphorus Magnesium Iron TIBC Ferritin Total Bilirubin AST ALT Lactate Dehydrogenase Total Creatine Kinase Troponin T C-Reactive Protein Albumin Urine WBC (Auto) Urine Creatinine Urine Total Protein Complement C3 Coronavirus (PCR) Hepatitis C Antibody Crossmatch 05/14/21 05/14/21 05/14/21 09:58 12:05 12:08 WBC RBC Hgb Hct MCV MCHC RDW Plt Count Lymph % (Auto) [place] % (Auto) Lymph # (Auto) [place] # (Auto) Seg Neutrophils % Seg Neuts % (Manual) Lymphocytes % (Manual) Monocytes % (Manual) Seg Neutrophils # Seg Neutrophils # Man Lymphocytes # (Manual) Monocytes # (Manual) Haptoglobin PT APTT D-Dimer Heparin Anti-Xa Level ABG pH ABG pO2 ABG HCO3 ABG O2 Saturation ABG Base Excess ABG Hemoglobin Oxyhemoglobin Sodium Potassium 3.4 L Chloride Carbon Dioxide BUN 36 H Creatinine 1.8 H Glucose 133 H POC Glucose 60 L 127 H Calcium Phosphorus Magnesium Iron TIBC Ferritin Total Bilirubin AST ALT Lactate Dehydrogenase Total Creatine Kinase Troponin T C-Reactive Protein Albumin Urine WBC (Auto) Urine Creatinine Urine Total Protein Complement C3 Coronavirus (PCR) Hepatitis C Antibody Crossmatch 05/14/21 05/14/21 05/15/21 17:20 23:37 05:34 WBC RBC Hgb Hct MCV MCHC RDW Plt Count Lymph % (Auto) [place] % (Auto) Lymph # (Auto) [place] # (Auto) Seg Neutrophils % Seg Neuts % (Manual) Lymphocytes % (Manual) Monocytes % (Manual) Seg Neutrophils # Seg Neutrophils # Man Lymphocytes # (Manual) Monocytes # (Manual) Haptoglobin PT APTT D-Dimer Heparin Anti-Xa Level ABG pH ABG pO2 ABG HCO3 ABG O2 Saturation ABG Base Excess ABG Hemoglobin Oxyhemoglobin Sodium Potassium Chloride Carbon Dioxide BUN Creatinine Glucose POC Glucose 144 H 115 H 119 H Calcium Phosphorus Magnesium Iron TIBC Ferritin Total Bilirubin AST ALT Lactate Dehydrogenase Total Creatine Kinase Troponin T C-Reactive Protein Albumin Urine WBC (Auto) Urine Creatinine Urine Total Protein Complement C3 Coronavirus (PCR) Hepatitis C Antibody Crossmatch 05/15/21 05/15/21 05/15/21 07:26 07:26 14:35 WBC 13.8 H RBC 3.32 L Hgb 10.0 L Hct 31.2 L MCV MCHC RDW 16.0 H Plt Count Lymph % (Auto) [place] % (Auto) Lymph # (Auto) [place] # (Auto) Seg Neutrophils % Seg Neuts % (Manual) Lymphocytes % (Manual) Monocytes % (Manual) Seg Neutrophils # Seg Neutrophils # Man Lymphocytes # (Manual) Monocytes # (Manual) Haptoglobin PT APTT D-Dimer Heparin Anti-Xa Level ABG pH ABG pO2 ABG HCO3 ABG O2 Saturation ABG Base Excess ABG Hemoglobin Oxyhemoglobin Sodium 149 H D Potassium 3.5 L Chloride 113.2 H Carbon Dioxide BUN 29 H Creatinine 1.8 H Glucose 113 H POC Glucose 143 H Calcium Phosphorus Magnesium Iron TIBC Ferritin Total Bilirubin AST ALT Lactate Dehydrogenase Total Creatine Kinase Troponin T C-Reactive Protein Albumin Urine WBC (Auto) Urine Creatinine Urine Total Protein Complement C3 Coronavirus (PCR) Hepatitis C Antibody Crossmatch 05/16/21 05/16/21 05/16/21 06:12 08:43 10:05 WBC RBC Hgb Hct MCV MCHC RDW Plt Count Lymph % (Auto) [place] % (Auto) Lymph # (Auto) [place] # (Auto) Seg Neutrophils % Seg Neuts % (Manual) Lymphocytes % (Manual) Monocytes % (Manual) Seg Neutrophils # Seg Neutrophils # Man Lymphocytes # (Manual) Monocytes # (Manual) Haptoglobin PT APTT D-Dimer Heparin Anti-Xa Level 0.21 L ABG pH ABG pO2 240.8 H ABG HCO3 ABG O2 Saturation 99.4 H ABG Base Excess -2.6 L ABG Hemoglobin 10.7 L Oxyhemoglobin Sodium Potassium Chloride Carbon Dioxide BUN Creatinine Glucose POC Glucose 34 L Calcium Phosphorus Magnesium Iron TIBC Ferritin Total Bilirubin AST ALT Lactate Dehydrogenase Total Creatine Kinase Troponin T C-Reactive Protein Albumin Urine WBC (Auto) Urine Creatinine Urine Total Protein Complement C3 Coronavirus (PCR) Hepatitis C Antibody Crossmatch 05/16/21 05/16/21 05/16/21 10:21 10:21 13:14 WBC 27.6 H RBC Hgb 11.4 L Hct MCV 99 H MCHC 30 L RDW 18.1 H Plt Count Lymph % (Auto) [place] % (Auto) Lymph # (Auto) [place] # (Auto) Seg Neutrophils % Seg Neuts % (Manual) 83.0 H Lymphocytes % (Manual) 4.0 L Monocytes % (Manual) 9.0 H Seg Neutrophils # Seg Neutrophils # Man 22.9 H Lymphocytes # (Manual) 1.1 L Monocytes # (Manual) 2.5 H Haptoglobin PT APTT D-Dimer Heparin Anti-Xa Level ABG pH ABG pO2 ABG HCO3 ABG O2 Saturation ABG Base Excess ABG Hemoglobin Oxyhemoglobin Sodium Potassium Chloride 108.8 H Carbon Dioxide 17 L BUN 26 H Creatinine 1.9 H Glucose 141 H POC Glucose Calcium Phosphorus Magnesium Iron TIBC Ferritin Total Bilirubin AST ALT Lactate Dehydrogenase Total Creatine Kinase Troponin T 0.503 H* C-Reactive Protein Albumin 3.1 L Urine WBC (Auto) Urine Creatinine Urine Total Protein Complement C3 Coronavirus (PCR) Hepatitis C Antibody Crossmatch 05/16/21 05/17/21 05/17/21 18:40 00:02 04:52 WBC RBC Hgb 8.8 L Hct 28.5 L D MCV MCHC RDW Plt Count Lymph % (Auto) [place] % (Auto) Lymph # (Auto) [place] # (Auto) Seg Neutrophils % Seg Neuts % (Manual) Lymphocytes % (Manual) Monocytes % (Manual) Seg Neutrophils # Seg Neutrophils # Man Lymphocytes # (Manual) Monocytes # (Manual) Haptoglobin PT APTT D-Dimer Heparin Anti-Xa Level ABG pH ABG pO2 ABG HCO3 ABG O2 Saturation ABG Base Excess ABG Hemoglobin Oxyhemoglobin Sodium Potassium Chloride Carbon Dioxide BUN Creatinine Glucose POC Glucose 114 H Calcium Phosphorus Magnesium Iron TIBC Ferritin Total Bilirubin AST ALT Lactate Dehydrogenase Total Creatine Kinase Troponin T 0.400 H* D C-Reactive Protein Albumin Urine WBC (Auto) Urine Creatinine Urine Total Protein Complement C3 Coronavirus (PCR) Hepatitis C Antibody Crossmatch 05/17/21 05/17/21 05/17/21 04:52 05:15 06:50 WBC RBC Hgb Hct MCV MCHC RDW Plt Count Lymph % (Auto) [place] % (Auto) Lymph # (Auto) [place] # (Auto) Seg Neutrophils % Seg Neuts % (Manual) Lymphocytes % (Manual) Monocytes % (Manual) Seg Neutrophils # Seg Neutrophils # Man Lymphocytes # (Manual) Monocytes # (Manual) Haptoglobin PT APTT D-Dimer Heparin Anti-Xa Level ABG pH ABG pO2 193.7 H ABG HCO3 27.7 H ABG O2 Saturation 99.2 H ABG Base Excess 3.4 H ABG Hemoglobin 9.2 L Oxyhemoglobin Sodium 146 H Potassium Chloride 110.3 H Carbon Dioxide BUN 33 H Creatinine 2.3 H Glucose 120 H POC Glucose 109 H Calcium Phosphorus Magnesium Iron TIBC Ferritin Total Bilirubin AST ALT Lactate Dehydrogenase Total Creatine Kinase Troponin T C-Reactive Protein Albumin Urine WBC (Auto) Urine Creatinine Urine Total Protein Complement C3 Coronavirus (PCR) Hepatitis C Antibody Crossmatch 05/17/21 05/17/21 05/17/21 10:30 11:33 15:35 WBC RBC Hgb Hct MCV MCHC RDW Plt Count Lymph % (Auto) [place] % (Auto) Lymph # (Auto) [place] # (Auto) Seg Neutrophils % Seg Neuts % (Manual) Lymphocytes % (Manual) Monocytes % (Manual) Seg Neutrophils # Seg Neutrophils # Man Lymphocytes # (Manual) Monocytes # (Manual) Haptoglobin PT APTT D-Dimer Heparin Anti-Xa Level ABG pH 7.457 H ABG pO2 162.5 H 103.7 H ABG HCO3 27.7 H 27.5 H ABG O2 Saturation ABG Base Excess 3.6 H ABG Hemoglobin 10.1 L 11.5 L Oxyhemoglobin Sodium Potassium Chloride Carbon Dioxide BUN Creatinine Glucose POC Glucose 122 H Calcium Phosphorus Magnesium Iron TIBC Ferritin Total Bilirubin AST ALT Lactate Dehydrogenase Total Creatine Kinase Troponin T C-Reactive Protein Albumin Urine WBC (Auto) Urine Creatinine Urine Total Protein Complement C3 Coronavirus (PCR) Hepatitis C Antibody Crossmatch 05/17/21 05/17/21 05/17/21 16:21 18:18 23:29 WBC RBC Hgb 9.6 L Hct 30.3 L MCV MCHC RDW Plt Count Lymph % (Auto) [place] % (Auto) Lymph # (Auto) [place] # (Auto) Seg Neutrophils % Seg Neuts % (Manual) Lymphocytes % (Manual) Monocytes % (Manual) Seg Neutrophils # Seg Neutrophils # Man Lymphocytes # (Manual) Monocytes # (Manual) Haptoglobin PT APTT D-Dimer Heparin Anti-Xa Level ABG pH ABG pO2 ABG HCO3 ABG O2 Saturation ABG Base Excess ABG Hemoglobin Oxyhemoglobin Sodium Potassium Chloride Carbon Dioxide BUN Creatinine Glucose POC Glucose 133 H 111 H Calcium Phosphorus Magnesium Iron TIBC Ferritin Total Bilirubin AST ALT Lactate Dehydrogenase Total Creatine Kinase Troponin T C-Reactive Protein Albumin Urine WBC (Auto) Urine Creatinine Urine Total Protein Complement C3 Coronavirus (PCR) Hepatitis C Antibody Crossmatch 05/18/21 05/18/21 05/18/21 04:15 04:15 05:01 WBC 16.8 H RBC 3.03 L Hgb 8.9 L Hct 28.7 L MCV 95 H MCHC 31 L RDW 16.4 H Plt Count Lymph % (Auto) [place] % (Auto) Lymph # (Auto) [place] # (Auto) Seg Neutrophils % Seg Neuts % (Manual) Lymphocytes % (Manual) Monocytes % (Manual) Seg Neutrophils # Seg Neutrophils # Man Lymphocytes # (Manual) Monocytes # (Manual) Haptoglobin PT APTT D-Dimer Heparin Anti-Xa Level ABG pH ABG pO2 ABG HCO3 ABG O2 Saturation ABG Base Excess ABG Hemoglobin Oxyhemoglobin Sodium Potassium Chloride Carbon Dioxide BUN 40 H Creatinine 2.1 H Glucose 115 H POC Glucose 113 H Calcium Phosphorus Magnesium Iron TIBC Ferritin Total Bilirubin AST ALT Lactate Dehydrogenase Total Creatine Kinase Troponin T C-Reactive Protein Albumin Urine WBC (Auto) Urine Creatinine Urine Total Protein Complement C3 Coronavirus (PCR) Hepatitis C Antibody Crossmatch 05/18/21 05/18/21 05/19/21 11:18 12:50 05:23 WBC 18.5 H RBC 3.31 L Hgb 9.9 L Hct 31.1 L MCV MCHC RDW 16.9 H Plt Count Lymph % (Auto) [place] % (Auto) Lymph # (Auto) [place] # (Auto) Seg Neutrophils % Seg Neuts % (Manual) Lymphocytes % (Manual) Monocytes % (Manual) Seg Neutrophils # Seg Neutrophils # Man Lymphocytes # (Manual) Monocytes # (Manual) Haptoglobin PT APTT D-Dimer Heparin Anti-Xa Level ABG pH ABG pO2 79.6 L ABG HCO3 28.0 H ABG O2 Saturation ABG Base Excess 3.3 H ABG Hemoglobin 6.2 L Oxyhemoglobin Sodium Potassium Chloride Carbon Dioxide BUN Creatinine Glucose POC Glucose 129 H Calcium Phosphorus Magnesium Iron TIBC Ferritin Total Bilirubin AST ALT Lactate Dehydrogenase Total Creatine Kinase Troponin T C-Reactive Protein Albumin Urine WBC (Auto) Urine Creatinine Urine Total Protein Complement C3 Coronavirus (PCR) Hepatitis C Antibody Crossmatch 05/19/21 05/19/21 05/19/21 05:23 05:23 11:24 WBC RBC Hgb Hct MCV MCHC RDW Plt Count Lymph % (Auto) [place] % (Auto) Lymph # (Auto) [place] # (Auto) Seg Neutrophils % Seg Neuts % (Manual) Lymphocytes % (Manual) Monocytes % (Manual) Seg Neutrophils # Seg Neutrophils # Man Lymphocytes # (Manual) Monocytes # (Manual) Haptoglobin PT APTT D-Dimer Heparin Anti-Xa Level ABG pH ABG pO2 ABG HCO3 ABG O2 Saturation ABG Base Excess ABG Hemoglobin Oxyhemoglobin Sodium Potassium Chloride Carbon Dioxide BUN 35 H 34 H Creatinine 2.0 H 2.1 H Glucose POC Glucose 111 H Calcium Phosphorus Magnesium Iron TIBC Ferritin Total Bilirubin AST ALT Lactate Dehydrogenase Total Creatine Kinase Troponin T C-Reactive Protein Albumin Urine WBC (Auto) Urine Creatinine Urine Total Protein Complement C3 Coronavirus (PCR) Hepatitis C Antibody Crossmatch 05/19/21 05/19/21 05/19/21 16:33 19:36 23:47 WBC RBC Hgb Hct MCV MCHC RDW Plt Count Lymph % (Auto) [place] % (Auto) Lymph # (Auto) [place] # (Auto) Seg Neutrophils % Seg Neuts % (Manual) Lymphocytes % (Manual) Monocytes % (Manual) Seg Neutrophils # Seg Neutrophils # Man Lymphocytes # (Manual) Monocytes # (Manual) Haptoglobin PT APTT 72.5 H* D-Dimer Heparin Anti-Xa Level ABG pH ABG pO2 ABG HCO3 ABG O2 Saturation ABG Base Excess ABG Hemoglobin Oxyhemoglobin Sodium Potassium Chloride Carbon Dioxide BUN Creatinine Glucose POC Glucose 131 H 122 H Calcium Phosphorus Magnesium Iron TIBC Ferritin Total Bilirubin AST ALT Lactate Dehydrogenase Total Creatine Kinase Troponin T C-Reactive Protein Albumin Urine WBC (Auto) Urine Creatinine Urine Total Protein Complement C3 Coronavirus (PCR) Hepatitis C Antibody Crossmatch 05/20/21 05/20/21 05/20/21 05:14 05:14 06:12 WBC 19.7 H RBC 3.19 L Hgb 9.5 L Hct 29.9 L MCV MCHC RDW 17.3 H Plt Count Lymph % (Auto) [place] % (Auto) Lymph # (Auto) [place] # (Auto) Seg Neutrophils % Seg Neuts % (Manual) Lymphocytes % (Manual) Monocytes % (Manual) Seg Neutrophils # Seg Neutrophils # Man Lymphocytes # (Manual) Monocytes # (Manual) Haptoglobin PT APTT D-Dimer Heparin Anti-Xa Level ABG pH ABG pO2 ABG HCO3 ABG O2 Saturation ABG Base Excess ABG Hemoglobin Oxyhemoglobin Sodium Potassium Chloride Carbon Dioxide BUN 31 H Creatinine 2.1 H Glucose 130 H POC Glucose 120 H Calcium Phosphorus Magnesium Iron TIBC Ferritin Total Bilirubin AST ALT Lactate Dehydrogenase Total Creatine Kinase Troponin T C-Reactive Protein Albumin Urine WBC (Auto) Urine Creatinine Urine Total Protein Complement C3 Coronavirus (PCR) Hepatitis C Antibody Crossmatch 05/20/21 05/20/21 05/20/21 11:10 18:12 23:55 WBC RBC Hgb Hct MCV MCHC RDW Plt Count Lymph % (Auto) [place] % (Auto) Lymph # (Auto) [place] # (Auto) Seg Neutrophils % Seg Neuts % (Manual) Lymphocytes % (Manual) Monocytes % (Manual) Seg Neutrophils # Seg Neutrophils # Man Lymphocytes # (Manual) Monocytes # (Manual) Haptoglobin PT APTT D-Dimer Heparin Anti-Xa Level ABG pH ABG pO2 ABG HCO3 ABG O2 Saturation ABG Base Excess ABG Hemoglobin Oxyhemoglobin Sodium Potassium Chloride Carbon Dioxide BUN Creatinine Glucose POC Glucose 152 H 137 H 146 H Calcium Phosphorus Magnesium Iron TIBC Ferritin Total Bilirubin AST ALT Lactate Dehydrogenase Total Creatine Kinase Troponin T C-Reactive Protein Albumin Urine WBC (Auto) Urine Creatinine Urine Total Protein Complement C3 Coronavirus (PCR) Hepatitis C Antibody Crossmatch 05/21/21 05/21/21 05/21/21 03:12 03:12 05:53 WBC 26.2 H RBC 2.58 L Hgb 7.7 L Hct 24.2 L MCV MCHC RDW 17.8 H Plt Count Lymph % (Auto) [place] % (Auto) Lymph # (Auto) [place] # (Auto) Seg Neutrophils % Seg Neuts % (Manual) Lymphocytes % (Manual) Monocytes % (Manual) Seg Neutrophils # Seg Neutrophils # Man Lymphocytes # (Manual) Monocytes # (Manual) Haptoglobin PT APTT D-Dimer Heparin Anti-Xa Level ABG pH ABG pO2 ABG HCO3 ABG O2 Saturation ABG Base Excess ABG Hemoglobin Oxyhemoglobin Sodium 133 L Potassium 5.7 H D Chloride Carbon Dioxide 21 L BUN 49 H Creatinine 2.6 H Glucose 160 H POC Glucose 118 H Calcium Phosphorus Magnesium Iron TIBC Ferritin Total Bilirubin AST ALT Lactate Dehydrogenase Total Creatine Kinase Troponin T C-Reactive Protein Albumin Urine WBC (Auto) Urine Creatinine Urine Total Protein Complement C3 Coronavirus (PCR) Hepatitis C Antibody Crossmatch 05/21/21 05/22/21 05/22/21 18:00 00:13 05:05 WBC RBC Hgb Hct MCV MCHC RDW Plt Count Lymph % (Auto) [place] % (Auto) Lymph # (Auto) [place] # (Auto) Seg Neutrophils % Seg Neuts % (Manual) Lymphocytes % (Manual) Monocytes % (Manual) Seg Neutrophils # Seg Neutrophils # Man Lymphocytes # (Manual) Monocytes # (Manual) Haptoglobin PT APTT D-Dimer Heparin Anti-Xa Level ABG pH 7.500 H ABG pO2 56.6 L ABG HCO3 ABG O2 Saturation ABG Base Excess ABG Hemoglobin 6.7 L Oxyhemoglobin 94.8 L Sodium 136 L Potassium 5.2 H Chloride Carbon Dioxide BUN 59 H Creatinine 2.6 H Glucose 138 H POC Glucose 109 H Calcium Phosphorus Magnesium Iron TIBC Ferritin Total Bilirubin AST ALT Lactate Dehydrogenase Total Creatine Kinase Troponin T C-Reactive Protein Albumin Urine WBC (Auto) Urine Creatinine Urine Total Protein Complement C3 Coronavirus (PCR) Hepatitis C Antibody Crossmatch 05/22/21 05/22/21 05/22/21 06:07 11:49 16:33 WBC RBC Hgb Hct MCV MCHC RDW Plt Count Lymph % (Auto) [place] % (Auto) Lymph # (Auto) [place] # (Auto) Seg Neutrophils % Seg Neuts % (Manual) Lymphocytes % (Manual) Monocytes % (Manual) Seg Neutrophils # Seg Neutrophils # Man Lymphocytes # (Manual) Monocytes # (Manual) Haptoglobin PT APTT D-Dimer Heparin Anti-Xa Level ABG pH ABG pO2 ABG HCO3 ABG O2 Saturation ABG Base Excess ABG Hemoglobin Oxyhemoglobin Sodium Potassium Chloride Carbon Dioxide BUN Creatinine Glucose POC Glucose 110 H 117 H 119 H Calcium Phosphorus Magnesium Iron TIBC Ferritin Total Bilirubin AST ALT Lactate Dehydrogenase Total Creatine Kinase Troponin T C-Reactive Protein Albumin Urine WBC (Auto) Urine Creatinine Urine Total Protein Complement C3 Coronavirus (PCR) Hepatitis C Antibody Crossmatch 05/23/21 05/23/21 05/23/21 04:48 04:48 07:12 WBC 21.1 H RBC 2.03 L Hgb 6.2 L Hct 19.4 L* MCV 96 H MCHC RDW 17.5 H Plt Count Lymph % (Auto) [place] % (Auto) Lymph # (Auto) [place] # (Auto) Seg Neutrophils % Seg Neuts % (Manual) Lymphocytes % (Manual) Monocytes % (Manual) Seg Neutrophils # Seg Neutrophils # Man Lymphocytes # (Manual) Monocytes # (Manual) Haptoglobin PT APTT D-Dimer Heparin Anti-Xa Level ABG pH ABG pO2 ABG HCO3 ABG O2 Saturation ABG Base Excess ABG Hemoglobin Oxyhemoglobin Sodium Potassium Chloride Carbon Dioxide BUN 62 H Creatinine 2.8 H Glucose 110 H POC Glucose Calcium Phosphorus Magnesium Iron TIBC Ferritin Total Bilirubin AST ALT Lactate Dehydrogenase Total Creatine Kinase Troponin T C-Reactive Protein Albumin Urine WBC (Auto) Urine Creatinine Urine Total Protein Complement C3 Coronavirus (PCR) Hepatitis C Antibody Crossmatch See Detail 05/23/21 05/23/21 05/23/21 11:19 14:15 16:12 WBC RBC Hgb Hct MCV MCHC RDW Plt Count Lymph % (Auto) [place] % (Auto) Lymph # (Auto) [place] # (Auto) Seg Neutrophils % Seg Neuts % (Manual) Lymphocytes % (Manual) Monocytes % (Manual) Seg Neutrophils # Seg Neutrophils # Man Lymphocytes # (Manual) Monocytes # (Manual) Haptoglobin PT APTT D-Dimer Heparin Anti-Xa Level ABG pH ABG pO2 294.7 H ABG HCO3 ABG O2 Saturation 99.5 H ABG Base Excess ABG Hemoglobin 6.5 L Oxyhemoglobin Sodium Potassium Chloride Carbon Dioxide BUN Creatinine Glucose POC Glucose 127 H 120 H Calcium Phosphorus Magnesium Iron TIBC Ferritin Total Bilirubin AST ALT Lactate Dehydrogenase Total Creatine Kinase Troponin T C-Reactive Protein Albumin Urine WBC (Auto) Urine Creatinine Urine Total Protein Complement C3 Coronavirus (PCR) Hepatitis C Antibody Crossmatch 05/23/21 05/23/21 05/23/21 16:30 16:30 18:54 WBC RBC Hgb Hct MCV MCHC RDW Plt Count Lymph % (Auto) [place] % (Auto) Lymph # (Auto) [place] # (Auto) Seg Neutrophils % Seg Neuts % (Manual) Lymphocytes % (Manual) Monocytes % (Manual) Seg Neutrophils # Seg Neutrophils # Man Lymphocytes # (Manual) Monocytes # (Manual) Haptoglobin 254 H PT APTT D-Dimer Heparin Anti-Xa Level ABG pH ABG pO2 ABG HCO3 ABG O2 Saturation ABG Base Excess ABG Hemoglobin Oxyhemoglobin Sodium Potassium Chloride Carbon Dioxide BUN Creatinine Glucose POC Glucose Calcium Phosphorus Magnesium Iron TIBC Ferritin Total Bilirubin AST ALT Lactate Dehydrogenase Total Creatine Kinase Troponin T C-Reactive Protein Albumin Urine WBC (Auto) 12.0 H Urine Creatinine 100.1 H Urine Total Protein Complement C3 Coronavirus (PCR) Hepatitis C Antibody Crossmatch 05/23/21 05/23/21 05/24/21 18:54 Unknown 00:11 WBC 21.7 H RBC 2.40 L Hgb 7.1 L Hct 22.9 L MCV 96 H MCHC 31 L RDW 16.8 H Plt Count Lymph % (Auto) [place] % (Auto) Lymph # (Auto) [place] # (Auto) Seg Neutrophils % Seg Neuts % (Manual) Lymphocytes % (Manual) Monocytes % (Manual) Seg Neutrophils # Seg Neutrophils # Man Lymphocytes # (Manual) Monocytes # (Manual) Haptoglobin PT APTT D-Dimer Heparin Anti-Xa Level ABG pH ABG pO2 ABG HCO3 ABG O2 Saturation ABG Base Excess ABG Hemoglobin Oxyhemoglobin Sodium Potassium Chloride Carbon Dioxide BUN Creatinine Glucose POC Glucose 110 H Calcium Phosphorus Magnesium Iron 10 L TIBC 151 L Ferritin Total Bilirubin AST ALT Lactate Dehydrogenase 311 H Total Creatine Kinase Troponin T C-Reactive Protein Albumin Urine WBC (Auto) Urine Creatinine Urine Total Protein Complement C3 Coronavirus (PCR) Hepatitis C Antibody Crossmatch 05/24/21 05/24/21 05/24/21 04:11 04:11 05:10 WBC 16.7 H RBC 2.19 L Hgb 6.4 L Hct 20.5 L MCV MCHC 31 L RDW 17.0 H Plt Count Lymph % (Auto) [place] % (Auto) Lymph # (Auto) [place] # (Auto) Seg Neutrophils % Seg Neuts % (Manual) Lymphocytes % (Manual) Monocytes % (Manual) Seg Neutrophils # Seg Neutrophils # Man Lymphocytes # (Manual) Monocytes # (Manual) Haptoglobin PT APTT D-Dimer Heparin Anti-Xa Level ABG pH ABG pO2 ABG HCO3 ABG O2 Saturation ABG Base Excess ABG Hemoglobin Oxyhemoglobin Sodium Potassium Chloride Carbon Dioxide BUN 78 H Creatinine 2.8 H Glucose 119 H POC Glucose 108 H Calcium Phosphorus 5.30 H Magnesium 2.60 H Iron TIBC Ferritin Total Bilirubin AST 152 H ALT 125 H Lactate Dehydrogenase Total Creatine Kinase Troponin T C-Reactive Protein Albumin 2.5 L Urine WBC (Auto) Urine Creatinine Urine Total Protein Complement C3 Coronavirus (PCR) Hepatitis C Antibody Crossmatch 05/24/21 05/25/21 05/25/21 09:55 04:25 04:25 WBC 13.8 H RBC 2.78 L Hgb 8.3 L Hct 25.6 L MCV MCHC RDW 16.2 H Plt Count Lymph % (Auto) [place] % (Auto) Lymph # (Auto) [place] # (Auto) Seg Neutrophils % Seg Neuts % (Manual) Lymphocytes % (Manual) Monocytes % (Manual) Seg Neutrophils # Seg Neutrophils # Man Lymphocytes # (Manual) Monocytes # (Manual) Haptoglobin PT APTT D-Dimer Heparin Anti-Xa Level ABG pH ABG pO2 141.9 H ABG HCO3 ABG O2 Saturation ABG Base Excess ABG Hemoglobin 6.5 L Oxyhemoglobin Sodium Potassium Chloride Carbon Dioxide BUN 76 H Creatinine 2.6 H Glucose 110 H POC Glucose Calcium 8.1 L Phosphorus Magnesium Iron TIBC Ferritin Total Bilirubin AST ALT Lactate Dehydrogenase Total Creatine Kinase Troponin T C-Reactive Protein Albumin Urine WBC (Auto) Urine Creatinine Urine Total Protein Complement C3 Coronavirus (PCR) Hepatitis C Antibody Crossmatch 05/25/21 05/25/21 05/25/21 05:19 09:40 17:11 WBC RBC Hgb Hct MCV MCHC RDW Plt Count Lymph % (Auto) [place] % (Auto) Lymph # (Auto) [place] # (Auto) Seg Neutrophils % Seg Neuts % (Manual) Lymphocytes % (Manual) Monocytes % (Manual) Seg Neutrophils # Seg Neutrophils # Man Lymphocytes # (Manual) Monocytes # (Manual) Haptoglobin PT APTT D-Dimer Heparin Anti-Xa Level ABG pH ABG pO2 150.9 H ABG HCO3 ABG O2 Saturation ABG Base Excess ABG Hemoglobin 7.0 L Oxyhemoglobin Sodium Potassium Chloride Carbon Dioxide BUN Creatinine Glucose POC Glucose 123 H 108 H Calcium Phosphorus Magnesium Iron TIBC Ferritin Total Bilirubin AST ALT Lactate Dehydrogenase Total Creatine Kinase Troponin T C-Reactive Protein Albumin Urine WBC (Auto) Urine Creatinine Urine Total Protein Complement C3 Coronavirus (PCR) Hepatitis C Antibody Crossmatch 05/25/21 05/26/21 05/26/21 23:37 05:02 07:09 WBC RBC Hgb Hct MCV MCHC RDW Plt Count Lymph % (Auto) [place] % (Auto) Lymph # (Auto) [place] # (Auto) Seg Neutrophils % Seg Neuts % (Manual) Lymphocytes % (Manual) Monocytes % (Manual) Seg Neutrophils # Seg Neutrophils # Man Lymphocytes # (Manual) Monocytes # (Manual) Haptoglobin PT APTT D-Dimer Heparin Anti-Xa Level ABG pH ABG pO2 ABG HCO3 ABG O2 Saturation ABG Base Excess ABG Hemoglobin Oxyhemoglobin Sodium Potassium Chloride Carbon Dioxide BUN 62 H Creatinine 2.1 H Glucose 112 H POC Glucose 117 H 112 H Calcium 8.2 L Phosphorus Magnesium Iron TIBC Ferritin Total Bilirubin AST ALT Lactate Dehydrogenase Total Creatine Kinase Troponin T C-Reactive Protein Albumin Urine WBC (Auto) Urine Creatinine Urine Total Protein Complement C3 Coronavirus (PCR) Hepatitis C Antibody Crossmatch 05/26/21 05/26/21 05/26/21 07:09 09:10 09:50 WBC 15.8 H RBC 3.21 L Hgb 9.2 L Hct 29.6 L MCV MCHC 31 L RDW 16.6 H Plt Count Lymph % (Auto) [place] % (Auto) Lymph # (Auto) [place] # (Auto) Seg Neutrophils % Seg Neuts % (Manual) Lymphocytes % (Manual) Monocytes % (Manual) Seg Neutrophils # Seg Neutrophils # Man Lymphocytes # (Manual) Monocytes # (Manual) Haptoglobin PT APTT D-Dimer Heparin Anti-Xa Level ABG pH ABG pO2 135.5 H ABG HCO3 ABG O2 Saturation ABG Base Excess ABG Hemoglobin 9.6 L Oxyhemoglobin Sodium Potassium Chloride Carbon Dioxide BUN Creatinine Glucose POC Glucose Calcium Phosphorus Magnesium Iron TIBC Ferritin Total Bilirubin AST ALT Lactate Dehydrogenase Total Creatine Kinase Troponin T C-Reactive Protein Albumin Urine WBC (Auto) 38.0 H Urine Creatinine Urine Total Protein Complement C3 Coronavirus (PCR) Hepatitis C Antibody Crossmatch 05/26/21 05/26/21 05/27/21 11:20 18:24 00:24 WBC RBC Hgb Hct MCV MCHC RDW Plt Count Lymph % (Auto) [place] % (Auto) Lymph # (Auto) [place] # (Auto) Seg Neutrophils % Seg Neuts % (Manual) Lymphocytes % (Manual) Monocytes % (Manual) Seg Neutrophils # Seg Neutrophils # Man Lymphocytes # (Manual) Monocytes # (Manual) Haptoglobin PT APTT D-Dimer Heparin Anti-Xa Level ABG pH ABG pO2 ABG HCO3 ABG O2 Saturation ABG Base Excess ABG Hemoglobin Oxyhemoglobin Sodium Potassium Chloride Carbon Dioxide BUN Creatinine Glucose POC Glucose 109 H 116 H 115 H Calcium Phosphorus Magnesium Iron TIBC Ferritin Total Bilirubin AST ALT Lactate Dehydrogenase Total Creatine Kinase Troponin T C-Reactive Protein Albumin Urine WBC (Auto) Urine Creatinine Urine Total Protein Complement C3 Coronavirus (PCR) Hepatitis C Antibody Crossmatch 05/27/21 05/27/21 05/27/21 05:12 07:47 07:47 WBC 15.5 H RBC 2.86 L Hgb 8.8 L Hct 26.1 L MCV MCHC RDW 16.1 H Plt Count Lymph % (Auto) [place] % (Auto) Lymph # (Auto) [place] # (Auto) Seg Neutrophils % Seg Neuts % (Manual) Lymphocytes % (Manual) Monocytes % (Manual) Seg Neutrophils # Seg Neutrophils # Man Lymphocytes # (Manual) Monocytes # (Manual) Haptoglobin PT APTT D-Dimer Heparin Anti-Xa Level ABG pH ABG pO2 ABG HCO3 ABG O2 Saturation ABG Base Excess ABG Hemoglobin Oxyhemoglobin Sodium Potassium Chloride 107.3 H Carbon Dioxide BUN 56 H Creatinine 1.8 H Glucose 108 H POC Glucose 108 H Calcium 8.1 L Phosphorus Magnesium Iron TIBC Ferritin Total Bilirubin AST ALT Lactate Dehydrogenase Total Creatine Kinase Troponin T C-Reactive Protein Albumin Urine WBC (Auto) Urine Creatinine Urine Total Protein Complement C3 Coronavirus (PCR) Hepatitis C Antibody Crossmatch 05/27/21 05/27/21 05/28/21 09:20 18:01 00:09 WBC RBC Hgb Hct MCV MCHC RDW Plt Count Lymph % (Auto) [place] % (Auto) Lymph # (Auto) [place] # (Auto) Seg Neutrophils % Seg Neuts % (Manual) Lymphocytes % (Manual) Monocytes % (Manual) Seg Neutrophils # Seg Neutrophils # Man Lymphocytes # (Manual) Monocytes # (Manual) Haptoglobin PT APTT D-Dimer Heparin Anti-Xa Level ABG pH ABG pO2 115.2 H ABG HCO3 ABG O2 Saturation ABG Base Excess ABG Hemoglobin 9.2 L Oxyhemoglobin Sodium Potassium Chloride Carbon Dioxide BUN Creatinine Glucose POC Glucose 109 H 114 H Calcium Phosphorus Magnesium Iron TIBC Ferritin Total Bilirubin AST ALT Lactate Dehydrogenase Total Creatine Kinase Troponin T C-Reactive Protein Albumin Urine WBC (Auto) Urine Creatinine Urine Total Protein Complement C3 Coronavirus (PCR) Hepatitis C Antibody Crossmatch 05/28/21 05/28/21 05/28/21 04:04 04:04 04:04 WBC 14.1 H RBC 2.87 L Hgb 8.6 L Hct 26.5 L MCV MCHC RDW 15.9 H Plt Count Lymph % (Auto) [place] % (Auto) Lymph # (Auto) [place] # (Auto) Seg Neutrophils % Seg Neuts % (Manual) 93.0 H Lymphocytes % (Manual) 2.0 L Monocytes % (Manual) Seg Neutrophils # Seg Neutrophils # Man 13.1 H Lymphocytes # (Manual) 0.3 L Monocytes # (Manual) Haptoglobin PT APTT D-Dimer Heparin Anti-Xa Level ABG pH ABG pO2 ABG HCO3 ABG O2 Saturation ABG Base Excess ABG Hemoglobin Oxyhemoglobin Sodium Potassium Chloride Carbon Dioxide BUN 54 H Creatinine 1.7 H Glucose 116 H POC Glucose Calcium 7.7 L Phosphorus Magnesium Iron TIBC Ferritin Total Bilirubin AST ALT Lactate Dehydrogenase Total Creatine Kinase Troponin T C-Reactive Protein 13.20 H Albumin Urine WBC (Auto) Urine Creatinine Urine Total Protein Complement C3 Coronavirus (PCR) Hepatitis C Antibody Crossmatch 05/28/21 05/28/21 05/28/21 05:32 12:06 17:30 WBC RBC Hgb Hct MCV MCHC RDW Plt Count Lymph % (Auto) [place] % (Auto) Lymph # (Auto) [place] # (Auto) Seg Neutrophils % Seg Neuts % (Manual) Lymphocytes % (Manual) Monocytes % (Manual) Seg Neutrophils # Seg Neutrophils # Man Lymphocytes # (Manual) Monocytes # (Manual) Haptoglobin PT APTT D-Dimer Heparin Anti-Xa Level ABG pH ABG pO2 ABG HCO3 ABG O2 Saturation ABG Base Excess ABG Hemoglobin Oxyhemoglobin Sodium Potassium Chloride Carbon Dioxide BUN Creatinine Glucose POC Glucose 119 H 112 H 114 H Calcium Phosphorus Magnesium Iron TIBC Ferritin Total Bilirubin AST ALT Lactate Dehydrogenase Total Creatine Kinase Troponin T C-Reactive Protein Albumin Urine WBC (Auto) Urine Creatinine Urine Total Protein Complement C3 Coronavirus (PCR) Hepatitis C Antibody Crossmatch 05/28/21 05/29/21 05/29/21 23:46 05:16 11:16 WBC 12.2 H RBC 2.94 L Hgb 8.7 L Hct 27.2 L MCV MCHC RDW 15.8 H Plt Count Lymph % (Auto) [place] % (Auto) Lymph # (Auto) [place] # (Auto) Seg Neutrophils % Seg Neuts % (Manual) Lymphocytes % (Manual) Monocytes % (Manual) Seg Neutrophils # Seg Neutrophils # Man Lymphocytes # (Manual) Monocytes # (Manual) Haptoglobin PT APTT D-Dimer Heparin Anti-Xa Level ABG pH ABG pO2 ABG HCO3 ABG O2 Saturation ABG Base Excess ABG Hemoglobin Oxyhemoglobin Sodium Potassium Chloride Carbon Dioxide BUN Creatinine Glucose POC Glucose 108 H 113 H Calcium Phosphorus Magnesium Iron TIBC Ferritin Total Bilirubin AST ALT Lactate Dehydrogenase Total Creatine Kinase Troponin T C-Reactive Protein Albumin Urine WBC (Auto) Urine Creatinine Urine Total Protein Complement C3 Coronavirus (PCR) Hepatitis C Antibody Crossmatch 05/29/21 05/29/21 05/29/21 11:16 17:25 23:26 WBC RBC Hgb Hct MCV MCHC RDW Plt Count Lymph % (Auto) [place] % (Auto) Lymph # (Auto) [place] # (Auto) Seg Neutrophils % Seg Neuts % (Manual) Lymphocytes % (Manual) Monocytes % (Manual) Seg Neutrophils # Seg Neutrophils # Man Lymphocytes # (Manual) Monocytes # (Manual) Haptoglobin PT APTT D-Dimer Heparin Anti-Xa Level ABG pH ABG pO2 ABG HCO3 ABG O2 Saturation ABG Base Excess ABG Hemoglobin Oxyhemoglobin Sodium Potassium Chloride Carbon Dioxide BUN 50 H Creatinine 1.5 H Glucose 117 H POC Glucose 115 H 110 H Calcium 8.0 L Phosphorus Magnesium Iron TIBC Ferritin Total Bilirubin AST ALT Lactate Dehydrogenase Total Creatine Kinase Troponin T C-Reactive Protein Albumin Urine WBC (Auto) Urine Creatinine Urine Total Protein Complement C3 Coronavirus (PCR) Hepatitis C Antibody Crossmatch 05/30/21 05/30/21 05/30/21 05:07 05:11 11:30 WBC RBC Hgb Hct MCV MCHC RDW Plt Count Lymph % (Auto) [place] % (Auto) Lymph # (Auto) [place] # (Auto) Seg Neutrophils % Seg Neuts % (Manual) Lymphocytes % (Manual) Monocytes % (Manual) Seg Neutrophils # Seg Neutrophils # Man Lymphocytes # (Manual) Monocytes # (Manual) Haptoglobin PT APTT D-Dimer Heparin Anti-Xa Level ABG pH ABG pO2 ABG HCO3 ABG O2 Saturation ABG Base Excess ABG Hemoglobin Oxyhemoglobin Sodium Potassium Chloride Carbon Dioxide BUN 55 H Creatinine 1.5 H Glucose 129 H POC Glucose 113 H 110 H Calcium 8.2 L Phosphorus Magnesium Iron TIBC Ferritin Total Bilirubin AST ALT Lactate Dehydrogenase Total Creatine Kinase Troponin T C-Reactive Protein Albumin Urine WBC (Auto) Urine Creatinine Urine Total Protein Complement C3 Coronavirus (PCR) Hepatitis C Antibody Crossmatch 05/30/21 05/31/21 05/31/21 17:53 04:11 04:11 WBC RBC 3.12 L Hgb 9.3 L Hct 28.8 L MCV MCHC RDW 16.1 H Plt Count Lymph % (Auto) [place] % (Auto) Lymph # (Auto) [place] # (Auto) Seg Neutrophils % Seg Neuts % (Manual) Lymphocytes % (Manual) Monocytes % (Manual) Seg Neutrophils # Seg Neutrophils # Man Lymphocytes # (Manual) Monocytes # (Manual) Haptoglobin PT APTT D-Dimer Heparin Anti-Xa Level ABG pH ABG pO2 ABG HCO3 ABG O2 Saturation ABG Base Excess ABG Hemoglobin Oxyhemoglobin Sodium Potassium Chloride Carbon Dioxide BUN 50 H Creatinine 1.4 H Glucose 117 H POC Glucose 107 H Calcium 8.0 L Phosphorus Magnesium Iron TIBC Ferritin Total Bilirubin AST ALT Lactate Dehydrogenase Total Creatine Kinase Troponin T C-Reactive Protein Albumin Urine WBC (Auto) Urine Creatinine Urine Total Protein Complement C3 Coronavirus (PCR) Hepatitis C Antibody Crossmatch 05/31/21 05/31/21 06/01/21 11:36 18:27 04:56 WBC RBC 3.14 L Hgb 9.1 L Hct 29.0 L MCV MCHC RDW 16.3 H Plt Count Lymph % (Auto) [place] % (Auto) Lymph # (Auto) [place] # (Auto) Seg Neutrophils % Seg Neuts % (Manual) Lymphocytes % (Manual) Monocytes % (Manual) Seg Neutrophils # Seg Neutrophils # Man Lymphocytes # (Manual) Monocytes # (Manual) Haptoglobin PT APTT D-Dimer Heparin Anti-Xa Level ABG pH ABG pO2 ABG HCO3 ABG O2 Saturation ABG Base Excess ABG Hemoglobin Oxyhemoglobin Sodium Potassium Chloride Carbon Dioxide BUN Creatinine Glucose POC Glucose 109 H 111 H Calcium Phosphorus Magnesium Iron TIBC Ferritin Total Bilirubin AST ALT Lactate Dehydrogenase Total Creatine Kinase Troponin T C-Reactive Protein Albumin Urine WBC (Auto) Urine Creatinine Urine Total Protein Complement C3 Coronavirus (PCR) Hepatitis C Antibody Crossmatch 06/01/21 06/01/21 06/01/21 04:56 06:10 11:04 WBC RBC Hgb Hct MCV MCHC RDW Plt Count Lymph % (Auto) [place] % (Auto) Lymph # (Auto) [place] # (Auto) Seg Neutrophils % Seg Neuts % (Manual) Lymphocytes % (Manual) Monocytes % (Manual) Seg Neutrophils # Seg Neutrophils # Man Lymphocytes # (Manual) Monocytes # (Manual) Haptoglobin PT APTT D-Dimer Heparin Anti-Xa Level ABG pH ABG pO2 ABG HCO3 ABG O2 Saturation ABG Base Excess ABG Hemoglobin Oxyhemoglobin Sodium Potassium Chloride 108.4 H Carbon Dioxide BUN 49 H Creatinine Glucose 113 H POC Glucose 107 H 122 H Calcium 8.0 L Phosphorus Magnesium Iron TIBC Ferritin Total Bilirubin AST ALT Lactate Dehydrogenase Total Creatine Kinase Troponin T C-Reactive Protein Albumin Urine WBC (Auto) Urine Creatinine Urine Total Protein Complement C3 Coronavirus (PCR) Hepatitis C Antibody Crossmatch 06/01/21 06/01/21 06/02/21 15:50 23:19 04:06 WBC RBC Hgb Hct MCV MCHC RDW Plt Count Lymph % (Auto) [place] % (Auto) Lymph # (Auto) [place] # (Auto) Seg Neutrophils % Seg Neuts % (Manual) Lymphocytes % (Manual) Monocytes % (Manual) Seg Neutrophils # Seg Neutrophils # Man Lymphocytes # (Manual) Monocytes # (Manual) Haptoglobin PT APTT D-Dimer Heparin Anti-Xa Level ABG pH ABG pO2 ABG HCO3 ABG O2 Saturation ABG Base Excess ABG Hemoglobin Oxyhemoglobin Sodium Potassium Chloride Carbon Dioxide BUN 46 H Creatinine Glucose 121 H POC Glucose 111 H 117 H Calcium Phosphorus Magnesium Iron TIBC Ferritin Total Bilirubin AST ALT Lactate Dehydrogenase Total Creatine Kinase Troponin T C-Reactive Protein Albumin Urine WBC (Auto) Urine Creatinine Urine Total Protein Complement C3 Coronavirus (PCR) Hepatitis C Antibody Crossmatch 06/02/21 06/02/21 06/02/21 05:08 11:06 15:40 WBC RBC Hgb Hct MCV MCHC RDW Plt Count Lymph % (Auto) [place] % (Auto) Lymph # (Auto) [place] # (Auto) Seg Neutrophils % Seg Neuts % (Manual) Lymphocytes % (Manual) Monocytes % (Manual) Seg Neutrophils # Seg Neutrophils # Man Lymphocytes # (Manual) Monocytes # (Manual) Haptoglobin PT APTT D-Dimer Heparin Anti-Xa Level ABG pH ABG pO2 ABG HCO3 ABG O2 Saturation ABG Base Excess ABG Hemoglobin Oxyhemoglobin Sodium Potassium Chloride Carbon Dioxide BUN Creatinine Glucose POC Glucose 120 H 119 H 125 H Calcium Phosphorus Magnesium Iron TIBC Ferritin Total Bilirubin AST ALT Lactate Dehydrogenase Total Creatine Kinase Troponin T C-Reactive Protein Albumin Urine WBC (Auto) Urine Creatinine Urine Total Protein Complement C3 Coronavirus (PCR) Hepatitis C Antibody Crossmatch 06/02/21 06/03/21 06/03/21 23:27 04:15 04:15 WBC RBC 3.40 L Hgb 10.0 L Hct 31.3 L MCV MCHC RDW 16.0 H Plt Count 463 H Lymph % (Auto) [place] % (Auto) Lymph # (Auto) [place] # (Auto) Seg Neutrophils % Seg Neuts % (Manual) Lymphocytes % (Manual) Monocytes % (Manual) Seg Neutrophils # Seg Neutrophils # Man Lymphocytes # (Manual) Monocytes # (Manual) Haptoglobin PT APTT D-Dimer Heparin Anti-Xa Level ABG pH ABG pO2 ABG HCO3 ABG O2 Saturation ABG Base Excess ABG Hemoglobin Oxyhemoglobin Sodium Potassium Chloride Carbon Dioxide BUN 44 H Creatinine Glucose 115 H POC Glucose 115 H Calcium Phosphorus Magnesium Iron TIBC Ferritin Total Bilirubin AST ALT Lactate Dehydrogenase Total Creatine Kinase Troponin T C-Reactive Protein Albumin Urine WBC (Auto) Urine Creatinine Urine Total Protein Complement C3 Coronavirus (PCR) Hepatitis C Antibody Crossmatch 06/03/21 06/03/21 06/03/21 10:52 16:32 23:37 WBC RBC Hgb Hct MCV MCHC RDW Plt Count Lymph % (Auto) [place] % (Auto) Lymph # (Auto) [place] # (Auto) Seg Neutrophils % Seg Neuts % (Manual) Lymphocytes % (Manual) Monocytes % (Manual) Seg Neutrophils # Seg Neutrophils # Man Lymphocytes # (Manual) Monocytes # (Manual) Haptoglobin PT APTT D-Dimer Heparin Anti-Xa Level ABG pH ABG pO2 ABG HCO3 ABG O2 Saturation ABG Base Excess ABG Hemoglobin Oxyhemoglobin Sodium Potassium Chloride Carbon Dioxide BUN Creatinine Glucose POC Glucose 113 H 106 H 114 H Calcium Phosphorus Magnesium Iron TIBC Ferritin Total Bilirubin AST ALT Lactate Dehydrogenase Total Creatine Kinase Troponin T C-Reactive Protein Albumin Urine WBC (Auto) Urine Creatinine Urine Total Protein Complement C3 Coronavirus (PCR) Hepatitis C Antibody Crossmatch 06/04/21 06/04/21 06/04/21 05:31 17:28 23:19 WBC RBC Hgb Hct MCV MCHC RDW Plt Count Lymph % (Auto) [place] % (Auto) Lymph # (Auto) [place] # (Auto) Seg Neutrophils % Seg Neuts % (Manual) Lymphocytes % (Manual) Monocytes % (Manual) Seg Neutrophils # Seg Neutrophils # Man Lymphocytes # (Manual) Monocytes # (Manual) Haptoglobin PT APTT D-Dimer Heparin Anti-Xa Level ABG pH ABG pO2 ABG HCO3 ABG O2 Saturation ABG Base Excess ABG Hemoglobin Oxyhemoglobin Sodium Potassium Chloride Carbon Dioxide BUN Creatinine Glucose POC Glucose 121 H 106 H 106 H Calcium Phosphorus Magnesium Iron TIBC Ferritin Total Bilirubin AST ALT Lactate Dehydrogenase Total Creatine Kinase Troponin T C-Reactive Protein Albumin Urine WBC (Auto) Urine Creatinine Urine Total Protein Complement C3 Coronavirus (PCR) Hepatitis C Antibody Crossmatch 06/05/21 06/05/21 06/05/21 04:24 04:24 05:43 WBC 11.1 H RBC 3.23 L Hgb 9.9 L Hct 29.4 L MCV MCHC RDW 16.3 H Plt Count 501 H Lymph % (Auto) [place] % (Auto) Lymph # (Auto) [place] # (Auto) Seg Neutrophils % Seg Neuts % (Manual) Lymphocytes % (Manual) Monocytes % (Manual) Seg Neutrophils # Seg Neutrophils # Man Lymphocytes # (Manual) Monocytes # (Manual) Haptoglobin PT APTT D-Dimer Heparin Anti-Xa Level ABG pH ABG pO2 ABG HCO3 ABG O2 Saturation ABG Base Excess ABG Hemoglobin Oxyhemoglobin Sodium Potassium Chloride Carbon Dioxide BUN 41 H Creatinine Glucose 120 H POC Glucose 106 H Calcium Phosphorus Magnesium Iron TIBC Ferritin Total Bilirubin AST ALT Lactate Dehydrogenase Total Creatine Kinase Troponin T C-Reactive Protein Albumin Urine WBC (Auto) Urine Creatinine Urine Total Protein Complement C3 Coronavirus (PCR) Hepatitis C Antibody Crossmatch 06/05/21 06/05/21 06/05/21 10:52 15:55 23:26 WBC RBC Hgb Hct MCV MCHC RDW Plt Count Lymph % (Auto) [place] % (Auto) Lymph # (Auto) [place] # (Auto) Seg Neutrophils % Seg Neuts % (Manual) Lymphocytes % (Manual) Monocytes % (Manual) Seg Neutrophils # Seg Neutrophils # Man Lymphocytes # (Manual) Monocytes # (Manual) Haptoglobin PT APTT D-Dimer Heparin Anti-Xa Level ABG pH ABG pO2 ABG HCO3 ABG O2 Saturation ABG Base Excess ABG Hemoglobin Oxyhemoglobin Sodium Potassium Chloride Carbon Dioxide BUN Creatinine Glucose POC Glucose 108 H 118 H 107 H Calcium Phosphorus Magnesium Iron TIBC Ferritin Total Bilirubin AST ALT Lactate Dehydrogenase Total Creatine Kinase Troponin T C-Reactive Protein Albumin Urine WBC (Auto) Urine Creatinine Urine Total Protein Complement C3 Coronavirus (PCR) Hepatitis C Antibody Crossmatch 06/06/21 06/06/21 06/07/21 05:12 16:55 00:14 WBC RBC Hgb Hct MCV MCHC RDW Plt Count Lymph % (Auto) [place] % (Auto) Lymph # (Auto) [place] # (Auto) Seg Neutrophils % Seg Neuts % (Manual) Lymphocytes % (Manual) Monocytes % (Manual) Seg Neutrophils # Seg Neutrophils # Man Lymphocytes # (Manual) Monocytes # (Manual) Haptoglobin PT APTT D-Dimer Heparin Anti-Xa Level ABG pH ABG pO2 ABG HCO3 ABG O2 Saturation ABG Base Excess ABG Hemoglobin Oxyhemoglobin Sodium Potassium Chloride Carbon Dioxide BUN Creatinine Glucose POC Glucose 114 H 136 H 129 H Calcium Phosphorus Magnesium Iron TIBC Ferritin Total Bilirubin AST ALT Lactate Dehydrogenase Total Creatine Kinase Troponin T C-Reactive Protein Albumin Urine WBC (Auto) Urine Creatinine Urine Total Protein Complement C3 Coronavirus (PCR) Hepatitis C Antibody Crossmatch 06/07/21 06/07/21 06/07/21 05:18 08:04 08:04 WBC 13.3 H RBC 3.64 L Hgb 10.6 L Hct 33.3 L MCV MCHC RDW 16.8 H Plt Count 470 H Lymph % (Auto) [place] % (Auto) Lymph # (Auto) [place] # (Auto) Seg Neutrophils % Seg Neuts % (Manual) Lymphocytes % (Manual) Monocytes % (Manual) Seg Neutrophils # Seg Neutrophils # Man Lymphocytes # (Manual) Monocytes # (Manual) Haptoglobin PT APTT D-Dimer Heparin Anti-Xa Level ABG pH ABG pO2 ABG HCO3 ABG O2 Saturation ABG Base Excess ABG Hemoglobin Oxyhemoglobin Sodium Potassium Chloride Carbon Dioxide BUN 41 H Creatinine Glucose 121 H POC Glucose 137 H Calcium Phosphorus Magnesium Iron TIBC Ferritin Total Bilirubin AST ALT Lactate Dehydrogenase Total Creatine Kinase Troponin T C-Reactive Protein Albumin Urine WBC (Auto) Urine Creatinine Urine Total Protein Complement C3 Coronavirus (PCR) Hepatitis C Antibody Crossmatch Allied health notes reviewed: RT
[2021-06-07] MEDS: HEPARIN 5,000 UNIT/1 ML VIAL SUB-Q SCH (10:00)
[2021-06-07] MEDS: LANSOPRAZOLE 30 MG SOLUTAB FEEDTUBE SCH (10:00)
[2021-06-07] MEDS: SENNOSIDES/DOCUSATE SODIUM 8.6/50 MG TAB FEEDTUBE SCH (10:00)
--- NOTE | 2021-06-07 12:25 | Discharge Summary ---
Providers - Providers Date of Admission: 05/04/21 12:35 Date of discharge: 06/07/21 Attending physician: LALA RODARTE MD 05/04/21 Consult to Cardiac Rehabilitation [CONS] Routine Reason For Exam: Phase 1 05/04/21 09:18 Consult to Physician [CONS] Urgent Comment: Consulting Provider: ALBERTO VILLAVICENCIO Physician Instructions: Reason For Exam: elevated trop, sob 05/04/21 10:11 Consult to Physician [CONS] Urgent Comment: Consulting Provider: MARY ANN LEMONS Physician Instructions: Reason For Exam: arf 05/04/21 12:35 Consult to Cardiology [CONS] Routine Consulting Provider: MARY ANN LEMONS Reason For Exam: ARF 05/05/21 15:22 Consult to Dietitian/Nutrition [CONS] Routine Physician Instructions: Reason For Exam: Reason for Consult: Evaluate nutritional intake 05/05/21 15:35 Consult to Physician [CONS] Routine Comment: Consulting Provider: RAMAKRISHNA SAWYER Physician Instructions: Reason For Exam: resp failure 05/07/21 14:00 Consult to Dietitian/Nutrition [CONS] Routine Physician Instructions: Reason For Exam: Reason for Consult: Pt needs oral supplement 05/08/21 12:36 Consult to Physician [CONS] Routine Comment: Consulting Provider: RENETTA ANN Physician Instructions: Reason For Exam: COVID PNEUMONIA 05/09/21 09:19 Consult to Dietitian/Nutrition [CONS] Routine Physician Instructions: needs nutritional support Reason For Exam: Reason for Consult: Write/Manage Tube Feeding 05/13/21 12:54 Speech Therapy Evaluation and Treat [CONS] Routine Reason For Exam: post extubation 05/13/21 13:32 Physical Therapy Evaluation and Treat [CONS] Routine Comment: Reason For Exam: Debility 05/16/21 07:38 Speech Therapy Evaluation and Treat [CONS] Routine Reason For Exam: resume tx 05/19/21 07:29 Speech Therapy Evaluation and Treat [CONS] Routine Reason For Exam: Post extubation swallow eval 05/23/21 13:49 Consult to Physician [CONS] Routine Comment: called office/ coty Consulting Provider: JEFF DOHERTY Physician Instructions: Reason For Exam: eval for IVC FILTER (DVT, ANEMIA) 05/24/21 07:44 Consult to Physician [CONS] Urgent Comment: called office/ coty Consulting Provider: HIGINIO GONZALEZ Physician Instructions: Reason For Exam: GIB 05/24/21 16:52 Consult to Physician [CONS] Urgent Comment: noted Consulting Provider: ABY JENKINS Physician Instructions: Reason For Exam: trach/peg; intubated x3 06/03/21 08:40 Consult to Ethics Committee [CONS] Routine Reason For Exam: No family, recurrent failed weaning from vent Primary care physician: CARE[employer] SERVICES OFFICER Hospitalization Condition: Stable Hospital course: This is a 56-year-old male with a nicotine abuse, A. fib, hypertension, and chronic medication noncompliance and homelessness who presented to emergency department on 05/04 with complaints of dyspnea on exertion for the past month worsening over the past 3 days, intermittent left-sided chest tightness with activity, and persistent cough without fever. Work-up in the emergency department revealed anemia, hyponatremia, elevated BUN/creatinine and transaminitis. Patient was admitted to the hospitalist service with acute kidn ey injury and accelerated hypertension. 05/04 nephrology was consulted for acute kidney injury and cardiac cath was held up due to worsening renal function. Echocardiogram on 05/05 revealed EF of 35 to 40% with moderate concentric LVH, moderate global hypokinesis of left ventricle, mild MR, mild pulmonary hypertension patient was placed on a heparin and nitroglycerin drip. On 05/05 patient decompensated with worsening respiratory failure and inability to protect his airway and was intubated, COVID-19 PCR positive. On 05/10 patient was febrile and was pancultured, mucoid discharge was noted from urinary meatus and was sent for culture which did not grow anything. Electrolyte imbalances persisted and were intervened upon. On 05/10 patient had a T-max of 102.3 and was started on ceftriaxone per ID and overnight he had atrial fibrillation and was treated with a Cardizem drip presents today to sinus rhythm, cardiology increase metoprolol. On 05/11 he remained febrile and his antibiotic therapy was escalated to cefepime and vancomycin, lower extremity Doppler ultrasound showed acute DVT noted on heparin drip and on scheduled Librium. On 05/13 patient was able to be extubated antibiotics were changed to Zosyn for Enterococcus Librium started to be tapered. Patient failed swallow evaluation and tube feedings had to be restarted. On 05/16 patient was intubated again for airway protection and hypoxia was started on Lasix due to pulmonary edema. On 05/18 patient was extubated for the second time felt a swallow evaluation and received NG tube with continuation of tube feedings and heparin drip for DVT. On 06/01 CXR was concerning for aspiration and associated masses were noted and treated. On 05/23 patient was anemic and received PRBC with consults to GI, patient stopped vascular surgery consulted for possible IVC filter placement as the patient on positive occult on 05/24. Repeat Dopplers were negative for DVT and vascular surgery recommended subcu heparin if tolerated. Patient received hydration per nephrology with improvement to renal function. Patient continued to spike temperatures and antibiotic regimen was adjusted per infectious disease throughout stay. Surgery was consulted for trach/PEG however family declined. Patient will be transferred to hospice. Assessment and Plan Assessment and plan: Neuro: Metabolic encephalopathy, polysubstance abuse (amphetamine and tobacco) -On CIW[facility] protocol -s/p librium, serquel on hold -Maintain sleep-wake cycle -Avoid delirium -UDS positive for amphetamines -We will need cessation counseling when appropriate -s/p iv fentanyl Cardio: Heart failure reduced EF, cardiomyopathy, NSTEMI, paroxysmal atrial fibrillation, S/p hypertensive emergency, h/o HTN -Continue beta-sylvia, aspirin, statin, hydral, titrate as needed -Cardiology consulted, appreciate recommendations -Echo 05/04/2021-EF 35 to 40%. Moderate concentric LVH. Moderate global hypokinesis of left ventricle. Mild mitral regurgitation. Mild pulmonary hypertension. Echocardiogram (08/27/2020): LVEF is 50 to 55%. Mild to moderate concentric LVF. Severe diastolic dysfunction is present (restrictive filling). Right ventricle is mildly hypokinetic. RVSP is 48 mmHg. No valvular abnormalities. -S/p Cardizem drip for atrial fibrillation -Blood pressure monitoring per protocol Respiratory: Acute hypoxic respiratory failure -[facility] consulted, appreciate recommendations -Intubated on 05/05 in the ED and extubated 05/13, Re-intubated on 05/16 and Extubated on 05/18 -Reintubated 05/23 with 8.0 OETT at 22 cm at the lips -s/p bipap -A.m. vent settings: Assist control tidal volume 450, rate 16, PEEP 6, FiO2 25% -See RT notes for titration -PSV as tolerated -VAP bundle -Continues SPO2 monitoring GI: GIB (ruled out), Transaminitis, h/o hepatitis C -GI consulted, appreciate recommendations -IV Protonix BID -s/p Protonix gtt -BR: Senokot -Renal ultrasound showed incidental finding of cholelithiasis -Continue supportive management : Acute kidney injury likely secondary to vasomotor nephropathy -Nephrology consulted, appreciate recommendations -s/p IVF -Avoid nephrotoxic medications -Renally dose medication -Strict intake and output -FeNa indicates prerenal -Renal ultrasound completed: 1.7 hyper echoic mass within the left upper pole -Monitor follow-up with CT once stable ID: Severe COVID-19 pneumonia, Enterobacter aerogenes PNA, s/p Enterococcus faecalis UTI -Infectious disease consulted, appreciate recommendations -COVID-19 PCR positive -s/p droplet/precautions for 21 days -Not a candidate for remdesivir given acute kidney injury -s/p Dexamethasone for 10 days -Anticoagulation per hospital protocol -Trend COVID-19 from 2 markers (ferritin, D-dimer, CRP, LDH) -05/09 urine culture with Enterococcus faecalis -05/16 tracheal aspirate with Enterobacter aerogenes -per ID Due to persistent fevers switched cefepime to IV ertapenem renally adjusted 05/24 -GC negative -f/u culture data -re-cultured 05/26 Heme: Anemia, Acute DVT (resolved) , leukocytosis, Thrombocytosis -Bilateral lower extremity Doppler ultrasound shows acute DVT -heparin gtt converted to DOAC but now d/c -vascular surgery consulted for possible IVC filter placement, appreciate recommendations -repeat doppler shows no DVT -subq heparin for prophylaxis -Pulmonary perfusion study showed low probability of pulmonary embolism -S/p 3 unit PRBC -Trend CBC -Transfuse for hemoglobin less than 7 Disposition: 51 HOSPICE/MEDICAL FACILITY Final Discharge Diagnosis (Prints w/discharge instructions): Metabolic encephalopathy, h/o polysubstance abuse (methamphetamine and tobacco), cardiomyopathy, heart failure reduced EF (EF 35 to 40%), NSTEMI, paroxysmal atrial fibrillation, hypertension, s/p hypertensive emergency, acute hypoxic respiratory failure, transaminitis,h/o hepatitis C, acute kidney injury secondary to vasomotor nephropathy, severe COVID-19 pneumonia, Enterobacter aerogenes PNA, s/p Enterococcus faecalis UTI, anemia, s/p acute DVT, leukocytosis, thrombocytosis Time spent for discharge: 60 Core Measure Documentation - Palliative Care Palliative Care/ Comfort Measures: Hospice Care - Core Measures Any of the following diagnoses?: history only Exam - Constitutional Vitals: Temp Pulse Resp BP Pulse Ox 101 F H 76 19 116/73 96 06/07/21 08:29 06/07/21 10:01 06/07/21 10:01 06/07/21 10:01 06/07/21 10:01 General appearance: Present: no acute distress - EENT Eyes: Present: PERRL, EOM intact ENT: clear oral mucosa - Neck Neck: Present: normal ROM - Respiratory Respiratory effort: normal Respiratory: bilateral: diminished - Cardiovascular Rhythm: regular Heart Sounds: Present: S1 & S2. Absent: systolic murmur, diastolic murmur - Extremities Extremities: no ischemia, pulses intact, pulses symmetrical, No edema, normal temperature, normal color Peripheral Pulses: within normal limits - Abdominal General gastrointestinal: Present: soft, non-tender, non-distended, normal bowel sounds - Integumentary Integumentary: Present: warm, dry - Musculoskeletal Musculoskeletal: generalized weakness - Psychiatric Psychiatric: cooperative, agitated - Neurologic Neurologic: moves all extremities - Allied Health Allied health notes reviewed: nursing, RT, social work Plan Activity: advance as tolerated Diet: per dietitian instruction Special Instructions: restrict fluid intake to, record daily BP diary Additional Instructions: transfer to inpatient hospice Follow up with: PRIMARY MD LILI [Primary Care Provider] - 3-5 Days RENETTA ANN MD [Staff Physician] - 7 Days RODRIGO CAMARENA MD [Staff Physician] - 7 Days JESSICA ORDOÑEZ MD [Staff Physician] - 7 Days
[2021-06-07 13:52] VITALS: BP 131/95
== END 2021-06-07 14:45 | disposition hospice, inpatient (51) | DRG 207 ==
LOC: ED 05:08 → 4A 12:35 → CC1 05-06 07:09 → IMCU 05-14 16:51 → CC1 05-16 18:13 → IMCU 05-19 15:31 → CC1 05-23 14:44
PROVIDERS: ADMIT Hospitalist; ATTEND Internal Medicine
PROC: 5A1955Z Respiratory Ventilation, Greater than 96 Consecutive Hours (ICD-10-PCS; principal; 2021-05-05)
PROC: 0BH17EZ Insertion of Endotracheal Airway into Trachea, Via Natural or Artificial Opening (ICD-10-PCS; 2021-05-05)
PROC: 4A033R1 Measurement of Arterial Saturation, Peripheral, Percutaneous Approach (ICD-10-PCS; 2021-05-10)
PROC: 5A1955Z Respiratory Ventilation, Greater than 96 Consecutive Hours (ICD-10-PCS; 2021-05-23)
PROC: 0BH17EZ Insertion of Endotracheal Airway into Trachea, Via Natural or Artificial Opening (ICD-10-PCS; 2021-05-23)
PROC: 30233N1 Transfusion of Nonautologous Red Blood Cells into Peripheral Vein, Percutaneous Approach (ICD-10-PCS; 2021-05-23)
DX: U07.1 COVID-19 (principal); J12.82 Pneumonia due to coronavirus disease 2019; I21.4 Non-ST elevation (NSTEMI) myocardial infarction; J96.01 Acute respiratory failure with hypoxia; G93.41 Metabolic encephalopathy; N17.0 Acute kidney failure with tubular necrosis; E87.2 Acidosis; I42.9 Cardiomyopathy, unspecified; I16.1 Hypertensive emergency; I82.403 Acute embolism and thrombosis of unspecified deep veins of lower extremity, bilateral; N39.0 Urinary tract infection, site not specified; I16.0 Hypertensive urgency; F19.10 Other psychoactive substance abuse, uncomplicated; I10 Essential (primary) hypertension; D64.9 Anemia, unspecified; B19.20 Unspecified viral hepatitis C without hepatic coma; F17.200 Nicotine dependence, unspecified, uncomplicated; I25.10 Atherosclerotic heart disease of native coronary artery without angina pectoris; Z82.49 Family history of ischemic heart disease and other diseases of the circulatory system; F15.10 Other stimulant abuse, uncomplicated; I48.0 Paroxysmal atrial fibrillation; D75.839 Thrombocytosis, unspecified
CPT/HCPCS: 36415; 36600; 71045; 71046; 74018; 76770; 78580; 80048; 80053; 80061; 80074; 80202; 80307; 81001; 82140; 82270; 82550; 82565; 82570; 82728; 82803; 82962; 83010; 83550; 83615; 83735; 84100; 84145; 84156; 84300; 84478; 84484; 85007; 85014; 85018; 85025; 85027; 85049; 85379; 85520; 85610; 85730; 86021; 86038; 86140; 86160; 86334; 86850; 86900; 86901; 86920; 87040; 87070; 87076; 87086; 87116; 87186; 87205; 93005; 93010; 93306; 93970; 94002; 94003; 94660; 94760; G0378; J3490; Q0162; Q9967; A9540; C8929; C9113; J0330; J0360; J0692; J0696; J1100; J1170; J1200; J1335; J1630; J1644; J1815; J1940; J2060; J2405; J2543; J2704; J3010; J3370; J7030; J7040; J7042; J7050; P9016; U0003